=== PATIENT | female | born 1960 | race Caucasian/White ===

== ENCOUNTER 2017-06-26 10:20 | Emergency (ER) | payer OTHER ==
[~2017-06-26] VITALS: Ht 162.6 cm; Wt 136.1 kg
[~2017-06-26 10:20] MED LIST: ALBUTEROL2.5 MG/3 M INH; AMOXICILLIN500 M1 PO; AZITHROMYCIN500 MG PO; BACTRIM DS TAB1 EACH PO; CLINDAMYCIN HC300 MG PO; COL-RITE250 MG PO; COLACE100 MG PO; DIPHENHYDRAMINE25 M1 PO; FENOFIBRATE134 MG PO; FLEXERIL10 MG PO; HYDROCODON-ACE1 EAC8 PO; KEFLEX500 MG PO; LISINOPRIL-HCT1 EACH PO; LORAZEPAM1 MG PO; MELOXICAM15 MG PO; METHOCARBAMOL500 MG PO; NAPROXEN500 MG PO; NORCO 10-325 T1 EACH PO; NORCO 5-325 TA1 EACH PO; NORTRIPTYLINE H75 MG PO; OXYCODONE HCL10 MG PO; OXYCODONE HCL5 MG PO; OXYCONTIN10 MG PO; OXYCONTIN20 MG PO; OXYCONTIN30 MG PO; PERCOCET 5-3251 EACH PO; PREDNISONE20 MG PO; PRILOSEC OTC20 MG PO; PRILOSEC20 MG PO; STOOL SOFTENER; ULTRAM50 MG PO; UNKNOWN CHOLESTEROL; VENTOLIN HFA18 GM IH; VENTOLIN HFA18 GM INH; ZESTRIL10 MG; ZITHROMAX250 MG PO; ZOFRAN ODT8 MG PO; ZOFRAN4 MG PO
[2017-06-26] MEDS ORDERED: METHYLPREDNISOLO4 M1 PO (10:58)
[2017-06-27] MEDS ORDERED: ZOFRAN ODT4 MG PO (01:15)
[2017-06-27] MEDS ORDERED: KEFLEX250 MG PO (01:15)
== END 2017-06-26 11:17 | disposition home or self-care (01) ==
LOC: ED 10:20
DX: G89.29 Other chronic pain (principal); M25.552 Pain in left hip; F32.9 Major depressive disorder, single episode, unspecified; I10 Essential (primary) hypertension; J44.9 Chronic obstructive pulmonary disease, unspecified; F17.200 Nicotine dependence, unspecified, uncomplicated; Z90.710 Acquired absence of both cervix and uterus; Z90.49 Acquired absence of other specified parts of digestive tract; Z88.1 Allergy status to other antibiotic agents; Z88.5 Allergy status to narcotic agent
CPT/HCPCS: 73502; 99283

== ENCOUNTER 2017-06-26 22:18 | Emergency (ER) | payer OTHER ==
[~2017-06-26] VITALS: Ht 162.6 cm; Wt 136.1 kg
[~2017-06-26 22:18] MED LIST changes: +METHYLPREDNISOLO4 M1 PO
[2017-06-27] MEDS ORDERED: ZOFRAN ODT4 MG PO (01:15)
[2017-06-27] MEDS ORDERED: KEFLEX250 MG PO (01:15)
== END 2017-06-27 01:30 | disposition home or self-care (01) ==
LOC: ED 22:18
DX: R51 Headache (principal); R11.2 Nausea with vomiting, unspecified; F32.9 Major depressive disorder, single episode, unspecified; I10 Essential (primary) hypertension; J44.9 Chronic obstructive pulmonary disease, unspecified; F17.200 Nicotine dependence, unspecified, uncomplicated; Z90.710 Acquired absence of both cervix and uterus; Z90.49 Acquired absence of other specified parts of digestive tract; Z88.1 Allergy status to other antibiotic agents; Z88.5 Allergy status to narcotic agent; Z79.899 Other long term (current) drug therapy
CPT/HCPCS: 80053; 81001; 85025; 96361; 96374; 96375; 99283; J1200; J1885; J2765; J7030

== ENCOUNTER 2017-07-23 12:50 | Emergency (ER) | payer OTHER ==
[~2017-07-23] VITALS: Ht 162.6 cm; Wt 136.1 kg
[~2017-07-23 12:50] MED LIST changes: +KEFLEX250 MG PO; +ZOFRAN ODT4 MG PO
[2017-07-23] MEDS ORDERED: PRILOSEC OTC20 MG PO (13:01)
[2017-07-23] MEDS ORDERED: LASIX20 MG PO (13:08)
[2017-07-23] MEDS ORDERED: METHYLPREDNISOLO4 M1 PO (13:53)
[2017-07-23] MEDS ORDERED: KETOROLAC TROME10 MG PO (13:53)
[2017-07-23] MEDS ORDERED: CYCLOBENZAPRINE5 MG PO (13:55)
== END 2017-07-23 14:22 | disposition home or self-care (01) ==
LOC: ED 12:50
DX: G89.29 Other chronic pain (principal); M54.41 Lumbago with sciatica, right side; F32.9 Major depressive disorder, single episode, unspecified; I10 Essential (primary) hypertension; J44.9 Chronic obstructive pulmonary disease, unspecified; F17.200 Nicotine dependence, unspecified, uncomplicated; Z90.49 Acquired absence of other specified parts of digestive tract; Z90.710 Acquired absence of both cervix and uterus; Z88.1 Allergy status to other antibiotic agents; Z88.5 Allergy status to narcotic agent; Z88.8 Allergy status to other drugs, medicaments and biological substances
CPT/HCPCS: 96374; 96375; 99283; J1100; J1885; J2060

== ENCOUNTER 2017-11-05 18:13 | Inpatient (IN) | payer OTHER ==
[~2017-11-05] VITALS: Ht 162.6 cm; Wt 139.8 kg
--- OUTSIDE RECORDS SUMMARY | ~2017-11-05 | XMS | Clinical Summary ---
Demographics + + + | Address | [address] | | | [place] [address] | + + + | Home Phone [...] Providers + +------+ + | Care Hog Slaughterer Name | Role | Phone | + +------+ + | Travis Mcginnis MD | PP | Unavailable | + +------+ + Source Comments L[facility] is fully live on both [facility] and [facility] Allergies + + + + + + [...] | | + + + +---------+------+------+-------+ | [place]-3 Fatty | Take by mouth. | | [...]
[~2017-11-05 18:13] MED LIST changes: +CYCLOBENZAPRINE5 MG PO; +KETOROLAC TROME10 MG PO; +LASIX20 MG PO
[2017-11-05] MEDS ORDERED: LOSARTAN POTASS50 MG PO (18:29)
[2017-11-05] MEDS ORDERED: PERCOCET 5-3251 EACH PO (18:29)
--- OUTSIDE RECORDS SUMMARY | 2017-11-05 19:16 | XMS | Clinical Summary ---
Demographics + + + | Address | [address] | | | [place] [address] | + + + | Home Phone | | + + + | Preferred Language | Unknown | + + + | Marital Status | Single | + + + | Protestant Affiliation | PRE | + + + | Race | White | + + + | Ethnic Group | Not or | + + + Author + + + | Author | NON REVENUE LOCATIONS | + + + | Organization | NON REVENUE LOCATIONS | + + + | Address | Unknown | + + + | Phone | Unavailable | + + + Support +------+ + + + | Name | Relationship | Address | Phone | +------+ + + + ECON | [place] | | +------+ + + + Care Team Providers + +------+ + | Care Advertising Supervisor Name | Role | Phone | + +------+ + | Travis Mcginnis MD | PP | Unavailable | + +------+ + Source Comments LION is fully live on both [facility] and [facility] & [facility] Allergies + + + + + + | Active Allergy | Reactions | Severity | Noted | Comments | | | | | Date | | + + + + + + | Adhesive Tape | Rash | | 08/16/20 | | | | | | 08 | | + + + + + + | Atorvastatin Calcium | | | 08/17/20 | | | | | | 03 | | + + + + + + | Sulfa (Sulfonamide | | | 07/18/20 | Gives intestinal | | Antibiotics) | | | 06 | flu | + + + + + + Current Medications + + + +---------+------+------+-------+ | Prescription | Sig. | Disp. | Refills | Star | End | Statu | | | | | | t | Date | s | | | | | | Date | | | + + + +---------+------+------+-------+ | ALBUTEROL SULFATE | inhale the contents | | | | | Activ | | 200 MCG CAPS WITH | of one capsule by | | | | | e | | INHALATION DEVICE | inhalation route | | | | | | | | every 4 hours as | | | | | | | | needed | | | | | | + + + +---------+------+------+-------+ | omeprazole | Take 40 mg by mouth | | | | | Activ | | (PRILOSEC) 40 mg | once daily. | | | | | e | | Oral Capsule, | | | | | | | | Delayed | | | | | | | | Release(E.C.) | | | | | | | + + + +---------+------+------+-------+ | MULTIVITS | Take by mouth. | | | | | Activ | | W-FE,OTHER MIN | | | | | | e | | (CENTRUM ORAL) | | | | | | | + + + +---------+------+------+-------+ | CALCIUM | Take by mouth. | | | | | Activ | | CARBONATE/VITAMIN D3 | | | | | | e | | (CALCIUM 600 + D | | | | | | | | ORAL) | | | | | | | + + + +---------+------+------+-------+ | [place]-3 Fatty | Take by mouth. | | | | | Activ | | Acids-Vitamin E | | | | | | e | | (FISH OIL) 1,000 mg | | | | | | | | Oral Capsule | | | | | | | + + + +---------+------+------+-------+ | | Take 1 Tab by mouth | | | | | Activ | | hydrocodone-acetamin | every four hours as | | | | | e | | ophen 7.5-325 mg | needed. Not to | | | | | | | Oral Tablet | exceed 12 tablets | | | | | | | | per any 24 hour | | | | | | | | period. (Not to | | | | | | | | exceed 4000 mg of | | | | | | | | acetaminophen from | | | | | | | | all products per 24 | | | | | | | | hour period.) | | | | | | + + + +---------+------+------+-------+ | docusate sodium | Take 100 mg by mouth | | | 10/0 | | Activ | | (DOC-Q-LACE) 100 mg | as needed. | | | 7/20 | | e | | Oral Capsule | | | | 10 | | | + + + +---------+------+------+-------+ | acetaminophen 500 | Take 500 mg by mouth | | | | | Activ | | mg Oral Tablet | every six hours as | | | | | e | | | needed. | | | | | | + + + +---------+------+------+-------+ | CYCLOBENZAPRINE | Take by mouth. | | | | | Activ | | HCL (CYCLOBENZAPRINE | | | | | | e | | ORAL) | | | | | | | + + + +---------+------+------+-------+ | aspirin EC 325 mg | Take 1 Tab by mouth | 90 Tab | 0 | 01/2 | | Activ | | Oral Tablet, Delayed | two times daily. | | | 10/19 | | e | | Release (E.C.) | Take for 6 weeks as | | | 11 | | | | | prevention of leg | | | | | | | | blood clots. | | | | | | + + + +---------+------+------+-------+ | rifamPIN 300 mg | Take 1 Cap by mouth | 60 Cap | 5 | 02/1 | | Activ | | Oral Capsule | two times daily. | | | 01/17 | | e | | | | | | 11 | | | + + + +---------+------+------+-------+ | ciprofloxacin | Take 1 Tab by mouth | 60 Tab | 5 | 11/01 | | Activ | | (CIPRO) 750 mg Oral | every twelve hours. | | | 01/17 | | e | | Tablet | Take until gone. 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) | | + + + | Leukocytosis | 10/14/2010 | + + + | Hyperglycemia | 10/14/2010 | + + + | Bettye arana | 10/14/2010 | + + + | Status post hip replacement | 12/16/2008 | + + + + + | Overview: ICD10 | + + + + + | Sleep apnea | 08/16/2008 | + + + | Asthma | 08/16/2008 | + + + | Osteoarthritis of hip | 02/11/2006 | + + + | Hip pain | 11/15/2005 | + + + | Back pain | 11/15/2005 | + + + | HTN (hypertension) | | + + + + + | Overview: ICD10 | + + Immunizations + + + + | Name | Dates Previously Given | Next Due | + + + + | Pneumococcal 23 | 10/15/2010 (Deferred: Patient Refused - | | | | Patient refused) | | + + + + Family History + + +------+ + | Medical History | Relation | Name | Comments | + + +------+ + | Cancer | Father | | unknown type | + + +------+ + | Cancer | Maternal | | unknown type | | | Aunt | | | + + +------+ + | Cancer | Maternal | | unknown type | | | Uncle | | | + + +------+ + | Cancer | Mother | | unknown type | + + +------+ + + +------+--------+ + | Relation | Name | Status | Comments | + +------+--------+ + | Father | | | | + +------+--------+ + | Maternal Aunt | | | | + +------+--------+ + | Maternal Uncle | | | | + +------+--------+ + | Mother | | | | + +------+--------+ + Social History + + + +--------+------+ | Tobacco Use | Types | Packs/Day | Years | Date | | | | | Used | | + + + +--------+------+ | Current Every Day | Cigarettes | 1 | 41 | | | Smoker | | | | | + + + +--------+------+ + +---+---+---+ | Smokeless Tobacco: | | | | | Never Used | | | | + +---+---+---+ + + +---------+ + | Alcohol Use | Drinks/We | oz/Week | Comments | | | ek | | | + + +---------+ + | Yes | | | rare social | + + +---------+ + + + + | Sex Assigned at | Date Recorded | | | | + + + | Not on file | | + + + Last Filed Vital Signs + + + + | Vital Sign | Reading | Time Taken | + + + + | Blood Pressure | 135/85 | 10/23/2010 8:05 AM PST | + + + + | Pulse | 89 | 10/23/2010 8:05 AM PST | + + + + | Temperature | 37 C (98.6 F) | 10/23/2010 8:05 AM PST | + + + + | Respiratory Rate | 20 | 10/23/2010 8:05 AM PST | + + + + | Oxygen Saturation | 97% | 10/23/2010 8:05 AM PST | + + + + | Inhaled Oxygen | - | - | | Concentration | | | + + + + | Weight | 118.8 kg (262 lb) | 05/10/2011 12:06 PM PDT | + + + + | Height | 162.6 cm (5' 4") | 05/10/2011 12:06 PM PDT | + + + + | Body Mass Index | 44.97 | 05/10/2011 12:06 PM PDT | + + + + Plan of Treatment + + + + + | Health Maintenance | Due Date | Last Done | Comments | + + + + + | INFLUENZA VACCINE | | | | | (FLU SHOT) | 7 | | | + + + + + Results Not on filefrom Last 3 Months
--- OUTSIDE RECORDS SUMMARY | 2017-11-05 19:16 | XMS | Clinical Summary ---
Demographics + + + | Address | [address] | | | [place] [address] | + + + | Home Phone | | + + + | Preferred Language | Unknown | + + + | Marital Status | Single | + + + | Zoroastrianism Affiliation | PRE | + + + [...] Team Providers + +------+ + | Care Tool And Die Engineer Name | Role | Phone | + +------+ + | Travis Mcginnis MD | PP | Unavailable | + +------+ + Source Comments LION is fully live on both [facility] and [facility] Allergies + + + + + + [...] | | + + + +---------+------+------+-------+ | [place]-3 Fatty | Take by mouth. | | [...]
--- NOTE | 2017-11-06 14:30 | EKG ---
[facility] [address] [facility] [place] [address] Signed Sinus tachycardia with frequent premature ventricular complexes Septal infarct (cited on or before 26-NOV-2016) Abnormal ECG When compared with ECG of 26-NOV-2016 17:44, premature ventricular complexes are now present Confirmed by NILES KNOX MD ([id number]) on 11/06/2017 2:30:32 PM Electronically Signed By: NILES KNOX MD 11/06/17 1430 PATIENT NAME: CHASTITY BONILLA Electrocardiogram DATE OF : 58 PHYSICIAN: NILES KNOX MD REPORT #: [id number] REPORT IS CONFIDENTIAL AND NOT TO BE RELEASED WITHOUT AUTHORIZATION
[2017-11-07] MEDS ORDERED: GABAPENTIN100 MG PO (14:04)
[2017-11-08] MEDS ORDERED: LABETALOL HCL100 MG PO (09:07)
[2017-11-08] MEDS ORDERED: AUGMENTIN 875-1 EACH PO (09:07)
[2017-11-08] MEDS ORDERED: NICORETTE4 M2 BUCCAL (09:07)
[2017-11-08] MEDS ORDERED: LOSARTAN POTAS100 MG PO (09:08)
[2017-11-08] MEDS ORDERED: NYSTOP60 GM TOP (09:35)
== END 2017-11-08 13:13 | disposition home or self-care (01) | DRG 872 ==
LOC: ED 18:13 → CCU 21:17 → MS 11-07 13:17
PROVIDERS: ADMIT Internal Medicine
DX: A41.01 Sepsis due to Methicillin susceptible Staphylococcus aureus (principal); L03.311 Cellulitis of abdominal wall; E87.1 Hypo-osmolality and hyponatremia; F11.20 Opioid dependence, uncomplicated; N10 Acute pyelonephritis; B37.2 Candidiasis of skin and nail; E66.01 Morbid (severe) obesity due to excess calories; G47.33 Obstructive sleep apnea (adult) (pediatric); K21.9 Gastro-esophageal reflux disease without esophagitis; I10 Essential (primary) hypertension; G89.4 Chronic pain syndrome; E11.9 Type 2 diabetes mellitus without complications; B96.20 Unspecified Escherichia coli [E. coli] as the cause of diseases classified elsewhere; F17.200 Nicotine dependence, unspecified, uncomplicated; J44.9 Chronic obstructive pulmonary disease, unspecified; F32.9 Major depressive disorder, single episode, unspecified; E65 Localized adiposity; E86.1 Hypovolemia
CPT/HCPCS: 36415; 51702; 71045; 74177; 80053; 80069; 80202; 81001; 83605; 83735; 85025; 87040; 87077; 87088; 87186; 93005; 93010; 94640; 94660; 96361; 96365; 96375; 97116; 97162; 99285; 99407; J0692; J0696; J1650; J1885; J2405; J3370; J3475; J3480; J7030; J7040; J7060; J7120; Q9967

== ENCOUNTER 2017-11-09 13:58 | Emergency (ER) | payer OTHER ==
[~2017-11-09] VITALS: Ht 162.6 cm; Wt 139.8 kg
[~2017-11-09 13:58] MED LIST changes: +AUGMENTIN 875-1 EACH PO; +GABAPENTIN100 MG PO; +LABETALOL HCL100 MG PO; +LOSARTAN POTAS100 MG PO; +LOSARTAN POTASS50 MG PO; +NICORETTE4 M2 BUCCAL; +NYSTOP60 GM TOP
--- OUTSIDE RECORDS SUMMARY | 2017-11-09 14:04 | XMS | Clinical Summary ---
Demographics + + + | Address | [address] | | | [place] [address] | + + + | Home Phone | | + + + | Preferred Language | Unknown | + + + | Marital Status | Single | + + + | Presybeterian Affiliation | PRE | + + + [...] Team Providers + +------+ + | Care Cable Stretcher And Tester Name | Role | Phone | + +------+ + | Travis Mcginnis MD | PP | Unavailable | + +------+ + Source Comments LION is fully live on both [facility] and [facility] Allergies + + + + + [...] | | + + + +---------+------+------+-------+ | [place]-3 Fatty | Take by mouth. | | [...]
--- OUTSIDE RECORDS SUMMARY | 2017-11-09 14:04 | XMS | Clinical Summary ---
Demographics + + + | Address | [address] | | | [place] [address] | + + + | Home Phone | | + + + | Preferred Language | Unknown | + + + | Marital Status | Single | + + + | Hinduism Affiliation | PRE | + + + [...] Team Providers + +------+ + | Care Manager Stars Name | Role | Phone | + +------+ + | Travis Mcginnis MD | PP | Unavailable | + +------+ + Source Comments [facility] Allergies + + + + + + [...] | | + + + +---------+------+------+-------+ | [place]-3 Fatty | Take by mouth. | | [...]
--- NOTE | 2017-11-09 17:59 | EKG ---
[facility] [address] [facility] [place] [address] Signed Normal sinus rhythm Cannot rule out Anterior infarct (cited on or before 26-NOV-2016) Abnormal ECG When compared with ECG of 05-NOV-2017 18:42, premature ventricular complexes are no longer present Vent. rate has decreased BY 45 BPM Confirmed by NILES KNOX MD ([id number]) on 11/09/2017 5:59:33 PM Electronically Signed By: NILES KNOX MD 11/09/17 1759 PATIENT NAME: CHASTITY BONILLA Electrocardiogram DATE OF : 58 PHYSICIAN: NILES KNOX MD REPORT #: [id number] REPORT IS CONFIDENTIAL AND NOT TO BE RELEASED WITHOUT AUTHORIZATION
== END 2017-11-09 17:35 | disposition home or self-care (01) ==
LOC: ED 13:58
DX: R33.9 Retention of urine, unspecified (principal); R10.31 Right lower quadrant pain; R10.32 Left lower quadrant pain; E66.01 Morbid (severe) obesity due to excess calories; I10 Essential (primary) hypertension; J44.9 Chronic obstructive pulmonary disease, unspecified; F32.9 Major depressive disorder, single episode, unspecified; F17.200 Nicotine dependence, unspecified, uncomplicated; Z90.710 Acquired absence of both cervix and uterus; Z90.49 Acquired absence of other specified parts of digestive tract; Z88.1 Allergy status to other antibiotic agents; Z88.5 Allergy status to narcotic agent; Z79.899 Other long term (current) drug therapy
CPT/HCPCS: 71045; 74177; 80053; 81001; 83605; 83880; 85025; 93005; 93010; 94640; 99284; Q9967

== ENCOUNTER 2017-11-18 10:57 | Emergency (ER) | payer OTHER ==
[~2017-11-18] VITALS: Ht 162.6 cm; Wt 139.8 kg
--- OUTSIDE RECORDS SUMMARY | ~2017-11-18 | XMS | Clinical Summary ---
Demographics + + + | Address | [address] | | | [place] [address] | + + + | Home Phone [...] + +------+ + | Care Quality Assurance Coach Name | Role | Phone | + +------+ + | Travis Mcginnis MD | PP | Unavailable | + +------+ + Source Comments LION is fully live on both [facility] and [facility] Allergies + + + + + [...] | | + + + +---------+------+------+-------+ | [place]-3 Fatty | Take by mouth. | | [...]
--- OUTSIDE RECORDS SUMMARY | ~2017-11-18 | XMS | Clinical Summary ---
Demographics + + + | Address | [address] | | | [place] [address] | + + + | Home Phone [...] Team Providers + +------+ + | Care Aeronautics Teacher Name | Role | Phone | + +------+ + | Travis Mcginnis MD | PP | Unavailable | + +------+ + Source Comments [facility] is fully [facility] both [facility] and [facility] Allergies + + + + [...] | | + + + +---------+------+------+-------+ | [place]-3 Fatty | Take by mouth. | | [...]
== END 2017-11-18 19:15 | disposition home or self-care (01) ==
LOC: ED 10:57
DX: R10.9 Unspecified abdominal pain (principal); R11.2 Nausea with vomiting, unspecified; E66.9 Obesity, unspecified; I10 Essential (primary) hypertension; Z88.1 Allergy status to other antibiotic agents; Z88.8 Allergy status to other drugs, medicaments and biological substances; Z88.5 Allergy status to narcotic agent; Z79.899 Other long term (current) drug therapy
CPT/HCPCS: 74177; 80053; 81001; 83690; 85025; 96374; 96375; 96376; 99284; J1170; J2405; Q9967

== ENCOUNTER 2017-12-24 19:01 | Emergency (ER) | payer OTHER ==
[~2017-12-24] VITALS: Ht 162.6 cm; Wt 139.8 kg
--- OUTSIDE RECORDS SUMMARY | ~2017-12-24 | XMS | Clinical Summary ---
Demographics + + + | Address | [address] [facility] | | | [address] | | | [place] [address] | + + + | Home Phone | | + + + | Preferred Language | Unknown | + + + | Marital Status | | + + + | Quaker Affiliation | [place] | + + + | Race [...] Team Providers + +------+ + | Care Patrol Lady Name | Role | Phone | + [...]
--- OUTSIDE RECORDS SUMMARY | ~2017-12-24 | XMS | Clinical Summary ---
Demographics + + + | Address | [address] | | | [place] [address] | + + + | Home Phone [...] Providers + +------+ + | Care In Flight Refueling Manager Name | Role | Phone | + +------+ + | Travis Mcginnis MD | PP | Unavailable | + +------+ + Source Comments LION is fully live on both [facility] and [facility] Allergies + + + + [...] | | + + + +---------+------+------+-------+ | [place]-3 Fatty | Take by mouth. | | [...]
--- OUTSIDE RECORDS SUMMARY | ~2017-12-24 | XMS | Clinical Summary ---
Demographics + + + | Address | [address] | | | [address] | | | [place] [address] | + + + | Home Phone | | + + + | Preferred Language | Unknown | + + + | Marital Status | | + + + | Mosque Affiliation | [place] | + + + | Race [...] Team Providers + +------+ + | Care Turbo Electric Operator Name | Role | Phone | [...]
--- OUTSIDE RECORDS SUMMARY | ~2017-12-24 | XMS | Clinical Summary ---
Demographics + + + | Address | [address] | | | [place] [address] | + + + | Home Phone [...] Team Providers + +------+ + | Care Reaming Machine Operator Name | Role | Phone [...] | | + + + +---------+------+------+-------+ | [place]-3 Fatty | Take by mouth. | | [...]
[2017-12-25] MEDS ORDERED: ZOFRAN ODT4 MG PO (14:52)
[2017-12-25] MEDS ORDERED: PHENERGAN50 MG PR (17:06)
== END 2017-12-24 21:36 | disposition home or self-care (01) ==
LOC: ED 19:01
DX: K52.9 Noninfective gastroenteritis and colitis, unspecified (principal); F32.9 Major depressive disorder, single episode, unspecified; I10 Essential (primary) hypertension; J44.9 Chronic obstructive pulmonary disease, unspecified; Z88.1 Allergy status to other antibiotic agents; Z88.8 Allergy status to other drugs, medicaments and biological substances; Z88.5 Allergy status to narcotic agent; Z79.899 Other long term (current) drug therapy
CPT/HCPCS: 80053; 85025; 96374; 96375; 99283; J2405; J2550; J7030

== ENCOUNTER 2017-12-25 14:40 | Emergency (ER) | payer OTHER ==
[~2017-12-25] VITALS: Ht 162.6 cm; Wt 139.8 kg
--- OUTSIDE RECORDS SUMMARY | ~2017-12-25 | XMS | Clinical Summary ---
Demographics + + + | Address | [address] [address] | | | [address] | | | [place] [address] | + + + | Home Phone | | + + + | Preferred Language | Unknown | + + + | Marital Status | | + + + | Judaism Affiliation | [place] | + + + | Race | White | + + + | Ethnic Group | Not or | + + + Author + + + | Author | [facility] | + + + | Organization | [facility] | + + + | Address | Unknown | + + + | Phone | Unavailable | + + + Care Team Providers + +------+ + | Care Picu Nurse Name | Role | Phone | + +------+ + PP | Unavailable | + +------+ + Allergies Not on File Current Medications Not on file Active Problems Not on file Social History + +-------+ +--------+------+ | Tobacco [...] on file | | + + + Plan of Treatment + + + + + | Health Maintenance | Due Date | Last Done | Comments | + + + + + | Hep C Ab Screening | | | | | | 9 | | | + + + + + | HIV Screening | | | | | | 4 | | | + + + + + | Tetanus | | | | | | 8 | | | + + + + + | Cervical Cancer | | | | | Screening | 0 | | | + + + + + | Breast Cancer | | | | | Screening | 9 | | | + + + + + | Colon Cancer | | | | | Screening | 9 | | | + + + + + | IMM Influenza (#1) | | | | | | 7 | | | + + + + + Results Not on filefrom Last 3 Months"
--- OUTSIDE RECORDS SUMMARY | ~2017-12-25 | XMS | Clinical Summary ---
Demographics + + + | Address | [address] | | | [place] [address] | + + + | Home Phone [...] Team Providers + +------+ + | Care Scalder Name | Role | Phone | + +------+ + | Travis Mcginnis MD | PP | Unavailable | + +------+ + Source Comments LION is fully live on both [facility] and [facility] Allergies + + + + + [...] | | + + + +---------+------+------+-------+ | [place]-3 Fatty | Take by mouth. | | [...]
--- OUTSIDE RECORDS SUMMARY | ~2017-12-25 | XMS | Clinical Summary ---
Demographics + + + | Address | [address] | | | [place] [address] | + + + | Home Phone [...] Providers + +------+ + | Care Chief Fishery Division Name | Role | Phone | + +------+ + | Travis Mcgninis MD | PP | Unavailable | + +------+ + Source Comments LION is fully live on both [facility] and [facility] Allergies + + + + [...] | | + + + +---------+------+------+-------+ | [place]-3 Fatty | Take by mouth. | | [...]
--- OUTSIDE RECORDS SUMMARY | ~2017-12-25 | XMS | Clinical Summary ---
Demographics + + + | Address | [address] [facility] | | | [address] | | | [place] [address] | + + + | Home Phone | | + + + | Preferred Language | Unknown | + + + | Marital Status | | + + + | Zoroastrianism Affiliation | [place] | + + + | Race [...] Team Providers + +------+ + | Care Housekeeping Department Worker Name | Role | Phone | [...]
[2017-12-25] MEDS ORDERED: ZOFRAN ODT4 MG PO (14:52)
[2017-12-25] MEDS ORDERED: PHENERGAN50 MG PR (17:06)
== END 2017-12-25 17:31 | disposition home or self-care (01) ==
LOC: ED 14:40
PROC: 0T9B70Z Drainage of Bladder with Drainage Device, Via Natural or Artificial Opening (ICD-10-PCS; principal; 2017-12-25)
DX: K56.7 Ileus, unspecified (principal); F32.9 Major depressive disorder, single episode, unspecified; I10 Essential (primary) hypertension; J44.9 Chronic obstructive pulmonary disease, unspecified; Z87.891 Personal history of nicotine dependence; Z88.1 Allergy status to other antibiotic agents; Z88.5 Allergy status to narcotic agent; Z88.8 Allergy status to other drugs, medicaments and biological substances; Z79.899 Other long term (current) drug therapy
CPT/HCPCS: 51701; 74177; 80053; 81001; 82150; 83690; 85025; 87077; 87088; 87186; 96374; 96375; 99284; J1885; J2550; Q9967

== ENCOUNTER 2018-01-15 05:30 | Emergency (ER) | payer OTHER ==
[~2018-01-15] VITALS: Ht 162.6 cm; Wt 139.8 kg
--- OUTSIDE RECORDS SUMMARY | ~2018-01-15 | XMS | Clinical Summary ---
Demographics + + + | Address | [address] | | | [place] [address] | + + + | Home Phone [...] | + + + + + | ZAFAR KRISHNA | ECON | [place] | | + + + + + Care Team Providers + +------+ + | Care Engraver Jewelry Name | Role | Phone | + +------+ + | Tarvis Mcginnis MD | PP | Unavailable | + +------+ + Source Comments [facility] and [facility] Allergies + + + + + [...] | | + + + +---------+------+------+-------+ | [place]-3 Fatty | Take by mouth. | | [...] | two times daily. | | | 20 | | e | | Release (E.C.) [...] | | | | (FLU SHOT) | 8 | | | + + + + + Results Not on filefrom Last 3 Months
--- OUTSIDE RECORDS SUMMARY | ~2018-01-15 | XMS | Encounter Summary ---
Demographics + + + | Address | [address] | | | [place] [address] | + + + | Home Phone | | + + + | Preferred Language | Unknown | + + + | Marital Status | Single | + + + | Pentecostal Affiliation | Unknown | + + + | Race | Unknown | + + + | Ethnic Group | Unknown | + + + Author + + + | Author | [facility] | + + + | Organization | [facility] | + + + | Address | Unknown | + + + | Phone | Unavailable | + + + Support + + +---------+ + | Name | Relationship | Address | Phone | + + +---------+ + | Kristel Teresa | ECON | Unknown | | + + +---------+ + Care Team Providers + +------+ + | Care Tire Specialist Name | Role | Phone | + +------+ + | Jaimie Monreal MD | PCP | | + +------+ + Reason for Visit MRI/CAT Scan (Routine) + +--------+ + + + + | Status | Reason | Specialty | Diagnoses / | Referred By | Referred To | | | | | Procedures | Contact | Contact | + +--------+ + + + + | Pending | | Radiology | Diagnoses | See, | | | Review | | | Pain | Medical | | | | | | Procedures | Record | | | | | | MRI lumbar | | | | | | | spine | | | | | | | without | | | | | | | contrast | | | + +--------+ + + + + Encounter Details +--------+ + + + + | Date | Type | Department | Care Team | Description | +--------+ + + + + | 12/04/ | Hospital | [facility] | See, Medical | Pain | | 2018 | Encounter | [facility] | Record | | | | | RADIOLOGY [address] | | | | | | [address] | | | | | | [place] [address] | | | | | | [phone] | | | +--------+ + + + [...] + + + as of this encounter Medications at Time of Discharge + + +--------+---------+ + + | Medication | Sig. | Disp. | Refills | Start | End Date | | | | | | Date | | + + +--------+---------+ + + | albuterol | Inhale 1 puff every | | | // | | | (VENTOLIN HFA) 108 | 6 hours as needed | | | 12 | | | (90 Base) MCG/ACT | for shortness of | | | | | | inhaler | breath | | | | | + + +--------+---------+ + + | Cyclobenzaprine | Take by mouth as | | | | | | HCl (FLEXERIL PO) | needed. | | | | | + + +--------+---------+ + + | desvenlafaxine | | | | 09/28/20 | | | (PRISTIQ) 50 MG 24 | | | | 17 | | | hr tablet | | | | | | + + +--------+---------+ + + | diazePAM (VALIUM) | Take 1 tablet by | 2 | 0 | 11/25/19 | | | 5 MG tablet | mouth daily as | tablet | | 18 | | | | needed for Anxiety | | | | | | | or Sleep. May take | | | | | | | 1-2 tabs 15-30 | | | | | | | minutes prior MRI | | | | | | | imaging for anxiety. | | | | | + + +--------+---------+ + + | furosemide (LASIX) | take 1 tablet by | | | 08/28/20 | | | 20 MG tablet | mouth once daily | | | 17 | | + + +--------+---------+ + + | gabapentin | Take 100 mg by mouth | | 0 | 09/18/20 | | | (NEURONTIN) 100 MG | 2 (two) times | | | 17 | | | capsule | daily. | | | | | + + +--------+---------+ + + | losartan (COZAAR) | Take 50 mg by mouth | | 1 | 10/03/19 | | | 50 MG tablet | daily. | | | 18 | | + + +--------+---------+ + + | omeprazole | Take 20 mg by mouth. | | | | | | (PRILOSEC) 20 MG | | | | | | | capsule | | | | | | + + +--------+---------+ + + | | Take 1 tablet by | | | 10/03/19 | | | oxyCODONE-acetaminop | mouth. | | | 18 | 8 | | hen (PERCOCET) 5-325 | | | | | | | MG per tablet | | | | | | + + +--------+---------+ + + as of this encounter Plan of Treatment +--------+---------+ + + + | Date | Type | Specialty | Care Team | Description | +--------+---------+ + + + | 01/20/ | Office | Dolorology | Xiang Sepulveda, | | | 2017 | Visit | | DO [address] | | | | | | [place], [place] | | | | | | [address] | | | | | | | | +--------+---------+ + + + as of this encounter Results MRI lumbar spine without contrast (11/27/2017 11:11 PM) + + + | Specimen | Performing Laboratory | + + + | | [facility] [address] [place] [address] | + + + + + | Narrative | + + | This is a non-reportable procedure without a radiologist report and is used for | | image storage only | + + in this encounter Visit Diagnoses + + | Diagnosis | + + | Pain | + + | Generalized pain | + +"
--- OUTSIDE RECORDS SUMMARY | ~2018-01-15 | XMS | Clinical Summary ---
Demographics + + + | Address | [address] | | | [place] [address] | + + + | Home Phone | | + + + | Preferred Language | Unknown | + + + | Marital Status | Single | + + + | Taoism Affiliation | Unknown | + + + | Race | Unknown | + + + | Ethnic Group | Unknown | + + + Author + + + | Author | [facility] | + + + | Organization | [facility] | + + + | Address | Unknown | + + + | Phone | Unavailable | + + + Support + + +---------+ + | Name | Relationship | Address | Phone | + + +---------+ + | Kristel Teresa | ECON | Unknown | | + + +---------+ + Care Team Providers + +------+ + | Care Double Reamer Operator Name | Role | Phone | [...] | | | + + +--------+---------+------+------+-------+ | gabapentin | Take 100 mg by mouth | | 0 | 12/2 | | Activ | | (NEURONTIN) 100 MG | 2 (two) times | | | 0/20 | | e | | capsule | daily. | | | 17 | | | [...] | mouth once daily | | | 920 | | e | | | | [...] | | | + + +--------+---------+------+------+-------+ | diazePAM (VALIUM) | Take 1 tablet by | 2 | 0 | 02/2 | | Activ | | 5 MG tablet | mouth daily as | tablet | | 03/19 | | e | | | needed for Anxiety | | | 18 | | | | | or Sleep. May take | | | | | | | | 1-2 tabs 15-30 | | | | | | | | minutes prior MRI | | | | | | | | imaging for anxiety. | | | | | | + + +--------+---------+------+------+-------+ | Cyclobenzaprine | Take by mouth as | | | | | Activ | | HCl (FLEXERIL PO) | needed. | | | | | e | + + +--------+---------+------+------+-------+ | | Take 1 tablet by | | | 01/0 | 04/1 | Disco | | oxyCODONE-acetaminop | mouth. | | | 01/17 | / | ntinu | | hen (PERCOCET) 5-325 | | | | 18 | 18 | ed | | MG per tablet | | | | | | | [...] + + + | Facet arthropathy, lumbar (HCC) | 10/09/2017 | + + + | Osteoarthritis of lumbar spine | 10/09/2017 | + + + Encounters +--------+ + + + + | Date | Type | Specialty | Care Team | Description | +--------+ + + + + | 01/08/ | Office | | Carmine Frost S, | Radiculopathy of | | 2018 | Visit | | HEMATOLOGY NURSE EDUCATOR | lumbar region | | | | | | (Primary Dx); | | | | | | Difficulty walking; | | | | | | DDD (degenerative | | | | | | disc disease), | | | | | | lumbar; Facet | | | | | | arthropathy, lumbar | | | | | | (HCC); | | | | | | Osteoarthritis of | | | | | | lumbar spine, | | | | | | unspecified spinal | | | | | | osteoarthritis | | | | | | complication status; | | | | | | Decreased range of | | | | | | motion of hip; Hip | | | | | | pain, chronic, left | +--------+ + + + + | 12/27/ | Telephone | | Xiang Sepulveda, | | | 2017 | | | DO | | +--------+ + + + + | 12/25/ | Telephone | | Antonella Sprague, | | | 2017 | | | CIRCUIT DESIGN ENGINEER | | +--------+ + + + + | 12/16/ | Telephone | | Casi Marcus, | | | 2017 | | | CIRCUIT DESIGN ENGINEER | | +--------+ + + + + | 12/09/ | Telephone | | Jailene Orta, | | | 2017 | | | TRANSFORMER STOCK CLERK | | +--------+ + + + + | 12/04/ | Hospital | | See, Medical | Pain | | 2018 | Encounter | | Record | | +--------+ + + + + | 12/04/ | Hospital | | Carmine Frost, | Decreased range of | | 2017 | Encounter | | HEMATOLOGY NURSE EDUCATOR | motion of hip; Hip | | | | | | pain, chronic, left | +--------+ + + + + | 12/04/ | Office | | Carmine Frost, | Radiculopathy of | | 2018 | Visit | | HEMATOLOGY NURSE EDUCATOR | lumbar region | | | | | | (Primary Dx); | | | | | | Osteoarthritis of | | | | | | lumbar spine, | | | | | | unspecified spinal | | | | | | osteoarthritis | | | | | | complication status; | | | | | | Facet arthropathy, | | | | | | lumbar; Difficulty | | | | | | walking; DDD | | | | | | (degenerative disc | | | | | | disease), lumbar; | | | | | | Decreased range of | | | | | | motion of hip; Hip | | | | | | pain, chronic, left | +--------+ + + + + | 12/04/ | Procedure | | | | | 2018 | Pass | | | | +--------+ + + + + | 12/04/ | Ancillary | | See, Medical | Pain | | 2017 | Orders | | Record | | +--------+ + + + + | 11/25/ | Telephone | | Casi Marcus, | | | 2017 | | | MICHAEL | | +--------+ + + + + | 11/25/ | Telephone | | Radha Reynoso CMA | | | 2017 | | | | | +--------+ + + + + | 11/25/ | Telephone | | Jailene Orta, | | | 2017 | | | TRANSFORMER STOCK CLERK | | +--------+ + + + + | 11/25/ | Orders Only | | Carmine Frost, | | | 2017 | | | HEMATOLOGY NURSE EDUCATOR | | +--------+ + + + + | 10/25/ | Telephone | | Jailene Orta, | | | 2017 | | | TRANSFORMER STOCK CLERK | | +--------+ + + + + | 10/23/ | Telephone | | Jailene Orta, | | | 2017 | | | TRANSFORMER STOCK CLERK | | +--------+ + + + + | 10/18/ | Hospital | | See, Medical | Pain | | 2017 | Encounter | | Record | | +--------+ + + + + | 10/18/ | Ancillary | | See, Medical | Pain | | 2018 | Orders | | Record | | +--------+ + + + + from Last 3 Months Social History + +-------+ +--------+------+ | Tobacco [...] Blood Pressure | - | - | + + + + | Pulse | - | - | + + + + | Temperature | - | - | + + + + | Respiratory Rate | - | - | + + + + | Oxygen Saturation | - | - | + + + + | Inhaled Oxygen | - | - | | Concentration | | | + + + + | Weight | 135.2 kg (298 lb) | 01/08/2018 1:04 PM PDT | + + + + | Height | 162.6 cm (5' 4") | 01/08/2018 1:04 PM PDT | + + + + | Body Mass Index | 51.15 | 01/08/2018 1:04 PM PDT | + + + + Plan of Treatment +--------+---------+ + + + | Date | Type | Specialty | Care Team | Description | +--------+---------+ + + + | 01/20/ | Office | | Xiang Sepulveda, | | | 2017 | Visit | | DO [address] | | | | | | [place] | | | | | | [address] | | | | | | | [...] | | | | Screening (Pap) | 0 | | | + + [...] Vaccine: Influenza | | | | | (Season Ended) | 8 | | | + + + + + Results X-ray hips bilateral (12/04/2017 2:31 PM) + + + | Specimen | Performing Laboratory | + + + | | [place] [id number] [facility] [place] [address] | + + + + + | Impressions | + + | 1. Diffuse osteopenia could obscure a nondisplaced fracture. 2. Prior right hip | | arthroplasty with retained orthopedic hardware. No periprosthetic fractures | | 3. Dystrophic calcifications superior and lateral to the right hip. 4. Arthritic | | changes of the left hip with axial narrowing suggesting loss of articular cartilage. No | | evidence of fractures or dislocation of the left hip. | + + + + | Narrative | + + | SHELBY GALDAMEZ XR HIPS BILATERAL 12/04/2017 2:31 PM HISTORY: 57 | | years. Female. Decreased range of motion. Chronic hip pain. TECHNIQUE: XR | | HIPS BILATERAL. Frontal view of the pelvis and hips and frog-leg lateral view of both | | left and right hip.. Total of 3 images presented for interpretation. | | COMPARISON: None at this facility FINDINGS: There is diffuse osteopenia a | | nondisplaced fracture could be obscured. Bony pelvic ring appears intact. There is | | extensive dystrophic calcification at the superior lateral margin of the right hip which | | may be associated with limited range of motion. Patient is had a right hip | | arthroplasty. The hardware is intact without breakage. No periprosthetic fractures. The | | left hip demonstrates severe axial narrowing of the joint space femoral head appears to | | remain rounded and smooth without flattening or fragmentation femoral neck and proximal | | femoral shaft as visualized show no displaced fractures. | + + + + | Procedure Note | + + | Mikey, Rad Results In - 12/04/2017 4:19 PM PST SHELBY ZARATE HIPS BILATERAL12/04/2017 | | 2:31 PMHISTORY:57 years. Female. Decreased range of motion. Chronic hip | | pain.TECHNIQUE:XR HIPS BILATERAL. Frontal view of the pelvis and hips and frog-leg | | lateral view of both left and right hip.. Total of 3 images presented for | | interpretation.COMPARISON:None at this facilityFINDINGS:There is diffuse osteopenia a | | nondisplaced fracture could be obscured. Bony pelvic ring appears intact. There is | | extensive dystrophic calcification at the superior lateral margin of the right hip which | | may be associated with limited range of motion. Patient is had a right hip | | arthroplasty. The hardware is intact without breakage. No periprosthetic fractures. The | | left hip demonstrates severe axial narrowing of the joint space femoral head appears to | | remain rounded and smooth without flattening or fragmentation femoral neck and proximal | | femoral shaft as visualized show no displaced fractures.IMPRESSION:1. Diffuse | | osteopenia could obscure a nondisplaced fracture.2. Prior right hip arthroplasty with | | retained orthopedic hardware. No periprosthetic fractures3. Dystrophic calcifications | | superior and lateral to the right hip.4. Arthritic changes of the left hip with axial | | narrowing suggesting loss of articular cartilage. No evidence of fractures or | | dislocation of the left hip. | | 4:14 PM | |1. Diffuse osteopenia could obscure a nondisplaced fracture. | |2. Prior right hip arthroplasty with retained orthopedic hardware. No periprosthetic fract ures | |3. Dystrophic calcifications superior and lateral to the right hip. | |4. Arthritic changes of the left hip with axial narrowing suggesting loss of articular car tilage. No evidence of fractures or dislocation of the left hip. | | | | | | | | | + + MRI lumbar spine without contrast (11/27/2017 11:11 PM) + + + | Specimen | Performing Laboratory | + + + | | [facility] [address] [place] [address] | + + + + + | Narrative | + + | This is a non-reportable procedure without a radiologist report and is used for | | image storage only | + + from Last 3 Months Insurance + +--------+ +------+-------+ + | Payer | Benefi | Subscriber | Type | Phone | Address | | | t Plan | ID | | | | | | / | | | | | | | Group | | | | | + +--------+ +------+-------+ + | MEDICAID | [place] | xxxxxxxx | | | [address] | | | N | | | | [place], [place] | | | [place] | | | | [address] | | | IN[facility] DIRECTOR | | | | | + +--------+ [...] Self [birth year] Home: | [address] | | | al/Fam | | 1960 | [phone] | [place] | | | gigi | | | [phone] | [phone] | + +--------+ +--------+ + +
--- OUTSIDE RECORDS SUMMARY | ~2018-01-15 | XMS | Encounter Summary ---
Demographics + + + | Address | [address] | | | [place] [address] | + + + | Home Phone | | + + + | Preferred Language | Unknown | + + + | Marital Status | Single | + + + | Yazidi Affiliation | Unknown | + + + | Race | Unknown | + + + | Ethnic Group | Unknown | + + + Author + + + | Author | [facility] | + + + | Organization | [facility] | + + + | Address | Unknown | + + + | Phone | Unavailable | + + + Support + + +---------+ + | Name | Relationship | Address | Phone | + + +---------+ + | Kristel Teresa | ECON | Unknown | | + + +---------+ + Care Team Providers + +------+ + | Care Territory Representative Name | Role | Phone | + +------+ + PCP | Unavailable | + +------+ + Encounter Details +--------+ + + + + | Date | Type | Department | Care Team | Description | +--------+ + + + + | 10/23/ | Telephone | [facility] | Jailene Orta, | | | 2017 | | [facility] | DOG SITTER | | | | | [address] | | | | | | [place] | | | | | | [address] | | | | | | [phone] | | | +--------+ + + + [...] [place] | | | | | | [address] | | | | | | | | +--------+---------+ + + + as of this encounter Visit Diagnoses Not on filein this encounter"
--- OUTSIDE RECORDS SUMMARY | ~2018-01-15 | XMS | Encounter Summary ---
Demographics + + + | Address | [address] | | | [place] [address] | + + + | Home Phone [...] + + + | Author | [facility] | + + + | Organization | [email or web address] | + + + | Address | Unknown | + + + | Phone | Unavailable | + + + Support + + +---------+ + | Name | Relationship | Address | Phone | + + +---------+ + | Kristel Teresa | ECON | Unknown | | + + +---------+ + Care Team Providers + +------+ + | Care Senior Care Provider Name | Role | Phone | + +------+ + PCP | Unavailable | + +------+ + Encounter Details +--------+ + + + + | Date | Type | Department | Care Team | Description | +--------+ + + + + | 10/25/ | Telephone | dle | Jailene Orta, | | | 2017 | | [facility] | SPLIT LEATHER MOSSER | | | | | [address] | | | | | | [place] | | | | | | [address] | | | | | | [phone] | | | +--------+ + + + [...] [place] | | | | | | [address] | | | | | | | | +--------+---------+ + + + as of this encounter Visit Diagnoses Not on filein this encounter"
--- OUTSIDE RECORDS SUMMARY | ~2018-01-15 | XMS | Clinical Summary ---
Demographics + + + | Address | [address] | | | [place] [address] | + + + | Home Phone [...] Team Providers + +------+ + | Care Coffer[place] Construction Supervisor Name | Role | Phone | + +------+ + | Travis Mcginnis MD | PP | Unavailable | + +------+ + Source Comments LION is fully live on both [facility] and [facility] Allergies + + + + + [...] | | + + + +---------+------+------+-------+ | [place]-3 Fatty | Take by mouth. | | [...]
--- OUTSIDE RECORDS SUMMARY | ~2018-01-15 | XMS | Encounter Summary ---
Demographics + + + | Address | [address] | | | [place] [address] | + + + | Home Phone | | + + + | Preferred Language | Unknown | + + + | Marital Status | Single | + + + | Sikhism Affiliation | Unknown | + + + | Race | Unknown | + + + | Ethnic Group | Unknown | + + + Author + + + | Author | [facility] | + + + | Organization | [facility] | + + + | Address | Unknown | + + + | Phone | Unavailable | + + + Support + + +---------+ + | Name | Relationship | Address | Phone | + + +---------+ + | Kristel Teresa | ECON | Unknown | | + + +---------+ + Care Team Providers + +------+ + | Care Fusion Analyst Name | Role | Phone | + +------+ + PCP | Unavailable | + +------+ + Encounter Details +--------+ + + + + | Date | Type | Department | Care Team | Description | +--------+ + + + + | 11/25/ | Orders Only | [facility] PH[facility] | Carmine Frost, | | | 2017 | | [facility] | CAR CHECKER [address] | | | | | [address] [place], | | | | | [place] [address] | [place] [address] | | | | | [phone] | [phone] | | | | | | | [...] 2017 | Visit | | DO [address] | | | | | | [place] | | | | | | [address] | | | | | | | | +--------+---------+ + + + as of this encounter Visit Diagnoses Not on filein this encounter"
--- OUTSIDE RECORDS SUMMARY | ~2018-01-15 | XMS | Encounter Summary ---
Demographics + + + | Address | [address] | | | [place] [address] | + + + | Home Phone [...] + + + | Author | [facility] | + + + | Organization | [facility] | + + + | Address | Unknown | + + + | Phone | Unavailable | + + + Support + + +---------+ + | Name | Relationship | Address | Phone | + + +---------+ + | Kristel Teresa | ECON | Unknown | | + + +---------+ + Care Team Providers + +------+ + | Care Kiln Packer Name | Role | Phone | + +------+ + | Jaimie Monreal MD | PCP | | + +------+ + Encounter Details +--------+ + + + + | Date | Type | Department | Care Team | Description | +--------+ + + + + | 12/09/ | Telephone | Nancy | Jailene Orta, | | | 2018 | | [facility] | MEDICAL CHEMIST | | | | | [address] | | | | | | [place] | | | | | | [address] | | | | | | [phone] | | | +--------+ + + + [...] [place] | | | | | | [address] | | | | | | | | +--------+---------+ + + + as of this encounter Visit Diagnoses + + | Diagnosis | + + | Osteoarthritis of lumbar spine, unspecified spinal osteoarthritis complication status - | | Primary | + + | Facet arthropathy, lumbar (HCC) | + + | Lumbosacral spondylosis without myelopathy | + +"
--- OUTSIDE RECORDS SUMMARY | ~2018-01-15 | XMS | Encounter Summary ---
Demographics + + + | Address | [address] | | | [place] [address] | + + + | Home Phone [...] + + + | Author | [facility] | + + + | Organization | [facility] | + + + | Address | Unknown | + + + | Phone | Unavailable | + + + Support + + +---------+ + | Name | Relationship | Address | Phone | + + +---------+ + | Kristel Teresa | ECON | Unknown | | + + +---------+ + Care Team Providers + +------+ + | Care Legal Researcher Name | Role | Phone | [...] + + | 12/04/ | Hospital | [facility] PHYSICIAN | See, Medical | Pain | | 2018 | Encounter | [facility] | Record | | | | | RADIOLOGY [address] | | | | | | [address] | | | | | | [place] [address] | | | | | | [phone] | | | +--------+ + + + [...] | | | | | [place], [place] | | | | | | [address] | | | | | | | | +--------+---------+ + + + as of this encounter Results MRI lumbar spine without contrast (11/27/2017 11:11 PM) + + + | Specimen | Performing Laboratory | + + + | | [facility] [address] [place] [address] | + + + + + | Narrative | + + | This is a non-reportable procedure without a radiologist report and is used for | | image storage only | + + in this encounter Visit Diagnoses + + | Diagnosis | + + | Pain | + + | Generalized pain | + +"
--- OUTSIDE RECORDS SUMMARY | ~2018-01-15 | XMS | Clinical Summary ---
Demographics + + + | Address | [address] | | | [address] | | | [place] [address] | + + + | Home Phone | | + + + | Preferred Language | Unknown | + + + | Marital Status | | + + + | Zoroastrianism Affiliation | [id number] | + + + | Race | Unknown | + + + | Ethnic Group | Unknown | + + + Author + + + | Author | [facility] | | | and [place] | + + + | Organization | [facility] | | | and [place] | + + + | Address | Unknown | + + + | Phone | Unavailable | + + + Support + + + + + | Name | Relationship | Address | Phone | + + + + + | Kristel Teresa | ECON | [address] | | | (Caregiver) | | [place] | | | | | [address] | | + + + + + | Casandra Smith | ECON | [address] | | | | | [place] | | + + + + + Care Team Providers + +------+ + | Care Supervisor Fish Hatchery Name | Role | Phone | + [...] + + + Current Medications + + +-------+---------+------+------+-------+ | Prescription | Sig. | Disp. | Refills | Star | End | Statu | | | | | | t | Date | s | | | | | | Date | | | + + +-------+---------+------+------+-------+ | omeprazole | Take 20 mg by mouth | | | 09/1 | | Activ | | (PRILOSEC) 20 mg | Daily. | | | 4/20 | | e | | capsule | | | | 12 | | | + + +-------+---------+------+------+-------+ | cyclobenzaprine | Take 10 mg by mouth | | | 09/1 | | Activ | | (FLEXERIL) 10 mg | Twice daily as | | | 4/20 | | e | | tablet | needed. | | | 12 | | | + + +-------+---------+------+------+-------+ | docusate sodium | Take 100 mg by mouth | | | 09/1 | | Activ | | (COLACE) 100 mg | every 12 hours as | | | 4/20 | | e | | capsule | needed. | | | 12 | | | + + +-------+---------+------+------+-------+ | albuterol | Inhale 1 puff every | | | 09/1 | | Activ | | (VENTOLIN HFA) 90 | 6 hours as needed | | | 4/20 | | e | | mcg/puff inhaler | for shortness of | | | 12 | | | | | breath | | | | | | + + +-------+---------+------+------+-------+ | oxyCODONE 10 MG | Take 5-10 mg by | | | | | Activ | | TABS | mouth every 4 hours | | | | | e | | | as needed. | | | | | | + + +-------+---------+------+------+-------+ Active Problems + + + | Problem | Noted Date | + + + | Calculus of right ureter | 11/25/2016 | + + + | Obesities, morbid (HCC) | 11/25/2016 | + + + | UTI (urinary tract infection) | 11/25/2016 | + + + | Morbid obesity with BMI of 50.0-59.9, adult ([facility]) | 11/25/2016 | + + + | [...] + | Blood Pressure | 112/57 | 11/25/20160 PST | + + + + | [...] Body Mass Index | 50.82 | 11/25/2016 0611 PST | + + + + Plan [...] | + + + + + | CERVICAL CANCER | | | | | SCREENING (PAP EVERY | 0 | | | | 3 YEARS 21-64 ) | | | | + + + + + | BREAST CANCER | | | | | SCREENING (MAMM Q2 | 9 | | | | YEARS 50-74) | | | | + + + + + | COLON CANCER | | | | | SCREENING | 9 | | | | (COLONOSCOPY EVERY | | | | | 10 YEARS 50-75) | | | | + + + + + | Vaccine: Influenza | | | | | (Season Ended) | 8 | | | + + + + + Implants + +-------+--------+ +--------+--------+--------+ | Implanted | Type | Area | Manufacture | Device | Expira | Model | | | | | r | | tion | / | | | | | | Identi | Date | Serial | | | | | | fier | | / Lot | + +-------+--------+ +--------+--------+--------+ | Stent Uro Unvrs Sft 6fr 26cm | Stent | Right: | YAMILA DRISCOLL | | 08/15/ | [id number] | | - [id number]: Holliey: 1 | | | INCORPORATE | | 2018 | / | | on 11/25/2016 by Rustam Schmid | | Ureter | D | | | [id number] | | GMD | | | | | | 61 | + +-------+--------+ +--------+--------+--------+ Results Not on filefrom Last 3 Months Insurance + +--------+ +--------+ +---------+ | Payer | Benefi | Subscriber | Type | Phone | Address | | | t Plan | ID | | | | | | / | | | | | | | Group | | | | | + +--------+ +--------+ +---------+ | [employer] | [employer] | xxxxxxxx | Medica | [phone] | | MEDICAID HMO | HEALTH | | id | [id number] | | | | [place] | | | | | | | [place] | | | | | + +--------+ +--------+ +---------+ + +--------+ +--------+ + + | Guarantor Name | Accoun | Relation to | Date | Phone | Billing Address | | | t Type | Patient | of | | | | | | | | | | + +--------+ +--------+ + + | SHELBY GALDAMEZ | Person | Self [birth year] | Home: | [address] | | | al/Fam | | 1960 | [phone] | [address] [place], | | | gigi | | | [address] | [place] [address] | + +--------+ +--------+ + +
--- OUTSIDE RECORDS SUMMARY | ~2018-01-15 | XMS | Encounter Summary ---
Demographics + + + | Address | [address] | | | [place] [address] | + + + | Home Phone [...] + + + | Author | [facility] | + + + | Organization | [facility] | + + + | Address | Unknown | + + + | Phone | Unavailable | + + + Support + + +---------+ + | Name | Relationship | Address | Phone | + + +---------+ + | Kristel Teresa | ECON | Unknown | | + + +---------+ + Care Team Providers + +------+ + | Care Ripshear Operator Name | Role | Phone | + +------+ + | Jaimie Monreal MD | PCP | | + +------+ + Encounter Details +--------+ + + + + | Date | Type | Department | Care Team | Description | +--------+ + + + + | 12/25/ | Telephone | Nancy | Antonella Sprague, | | | 2017 | | [facility] | SENIOR SVP | | | | | [address] | | | | | | [place] | | | | | | [address] | | | | | | [phone] | | | +--------+ + + + [...] 2018 | Visit | | DO [address] | | | | | | [place] [facility] | | | | | | [address] | | | | | | | | +--------+---------+ + + + as of this encounter Visit Diagnoses Not on filein this encounter"
--- OUTSIDE RECORDS SUMMARY | ~2018-01-15 | XMS | Encounter Summary ---
Demographics + + + | Address | [address] | | | [place] [address] | + + + | Home Phone | | + + + | Preferred Language | Unknown | + + + | Marital Status | Single | + + + | Congregational Affiliation | Unknown | + + + | Race | Unknown | + + + | Ethnic Group | Unknown | + + + Author + + + | Author | [facility] | + + + | Organization | [facility] | + + + | Address | Unknown | + + + | Phone | Unavailable | + + + Support + + +---------+ + | Name | Relationship | Address | Phone | + + +---------+ + | Kristel Teresa | ECON | Unknown | | + + +---------+ + Care Team Providers + +------+ + | Care Digital Court Reporter Name | Role | Phone | + +------+ + | Jaimie Monreal MD | PCP | | + +------+ + Reason for Referral MRI/CAT Scan (Routine) + +--------+ + + [...] + + | 12/04/ | Ancillary | [facility] | See, Medical | Pain | | 2018 | [facility] | [facility] | Record | | | | | [address] | | | | | | [place] [address] | | | | | | [phone] | | | +--------+ + + + [...] | | | | | [place] | | | | | | [id number] | | | | | | | | +--------+---------+ + + + as of this encounter Results MRI lumbar spine without contrast (11/27/2017 11:11 PM) + + + | Specimen | Performing Laboratory | + + + | | [facility] [address] [facility] [address] [place] [address] | + + + + + | Narrative | + + | This is a non-reportable procedure without a radiologist report and is used for | | image storage only | + + in this encounter Visit Diagnoses + + | Diagnosis | + + | Pain | + + | Generalized pain | + +"
--- OUTSIDE RECORDS SUMMARY | ~2018-01-15 | XMS | Encounter Summary ---
Demographics + + + | Address | [address] | | | [place] [address] | + + + | Home Phone | | + + + | Preferred Language | Unknown | + + + | Marital Status | Single | + + + | Zoroastrian Affiliation | Unknown | + + + | Race | Unknown | + + + | Ethnic Group | Unknown | + + + Author + + + | Author | [facility] | + + + | Organization | [facility] [employer] [facility] | + + + | Address | Unknown | + + + | Phone | Unavailable | + + + Support + + +---------+ + | Name | Relationship | Address | Phone | + + +---------+ + | Kristel Teresa | ECON | Unknown | | + + +---------+ + Care Team Providers + +------+ + | Care Optical Systems Engineer Name | Role | Phone | + +------+ + PCP | Unavailable | + +------+ + Encounter Details +--------+ + + + + | Date | Type | Department | Care Team | Description | +--------+ + + + + | 11/25/ | Orders Only | [facility] | Carmine Frost, | | | 2017 | | [facility] | [facility] [address] | | | | | [address] | [address] [place], | | | | | [place] [address] | [place] [address] | | | | | [phone] | [phone] | | | | | | | [...] | | | | | [place] | | | | | | [address] | | | | | | | | +--------+---------+ + + + as of this encounter Visit Diagnoses Not on filein this encounter"
--- OUTSIDE RECORDS SUMMARY | ~2018-01-15 | XMS | Encounter Summary ---
Demographics + + + | Address | [address] | | | [place] [address] | + + + | Home Phone | | + + + | Preferred Language | Unknown | + + + | Marital Status | Single | + + + | Methodist Affiliation | Unknown | + + + | Race | Unknown | + + + | Ethnic Group | Unknown | + + + Author + + + | Author | [facility] | + + + | Organization | [facility] | + + + | Address | Unknown | + + + | Phone | Unavailable | + + + Support + + +---------+ + | Name | Relationship | Address | Phone | + + +---------+ + | Kristel Teresa | ECON | Unknown | | + + +---------+ + Care Team Providers + +------+ + | Care Manager Of Patient Name | Role | Phone | + +------+ + PCP | Unavailable | + +------+ + Encounter Details +--------+ + + + + | Date | Type | Department | Care Team | Description | +--------+ + + + + | 11/25/ | Telephone | [facility] | Casi Marcus, | | | 2017 | | [facility] [place] | TRUCKING MANAGER | | | | | [address] | | | | | | [place] | | | | | | [address] | | | | | | [phone] | | | +--------+ + + + [...] [place] | | | | | | [address] | | | | | | | | +--------+---------+ + + + as of this encounter Visit Diagnoses Not on filein this encounter"
--- OUTSIDE RECORDS SUMMARY | ~2018-01-15 | XMS | Encounter Summary ---
Demographics + + + | Address | [address] | | | [place] [address] | + + + | Home Phone | | + + + | Preferred Language | Unknown | + + + | Marital Status | Single | + + + | Temple Affiliation | Unknown | + + + | Race | Unknown | + + + | Ethnic Group | Unknown | + + + Author + + + | Author | [facility] | + + + | Organization | [facility] | + + + | Address | Unknown | + + + | Phone | Unavailable | + + + Support + + +---------+ + | Name | Relationship | Address | Phone | + + +---------+ + | Kristel Teresa | ECON | Unknown | | + + +---------+ + Care Team Providers + +------+ + | Care Engraver Ornamental Design Name | Role | Phone | + +------+ + | Jaimie Monreal MD | PCP | | + +------+ + Encounter Details +--------+ + + + + | Date | Type | Department | Care Team | Description | +--------+ + + + + | 12/04/ | Procedure | [facility] | | | | 2018 | Pass | [facility] | | | | | | RADIOLOGY [address] | | | | [address] | | | | | | [place] [address] | | | | | | [phone] | | | +--------+ + + + [...] [place] | | | | | | [address] | | | | | | | | +--------+---------+ + + + as of this encounter Visit Diagnoses Not on filein this encounter"
--- OUTSIDE RECORDS SUMMARY | ~2018-01-15 | XMS | Encounter Summary ---
Demographics + + + | Address | [address] | | | [place] [address] | + + + | Home Phone [...] + + + | Author | [facility] [employer] | + + + | Organization | [facility] [employer] [facility] | + + + | Address | Unknown | + + + | Phone | Unavailable | + + + Support + + +---------+ + | Name | Relationship | Address | Phone | + + +---------+ + | Kristel Teresa | ECON | Unknown | | + + +---------+ + Care Team Providers + +------+ + | Care Sales Center Associate Name | Role | Phone | + +------+ + PCP | Unavailable | + +------+ + Encounter Details +--------+ + + + + | Date | Type | Department | Care Team | Description | +--------+ + + + + | 11/25/ | Telephone | [facility] | Radha Reynoso CMA | | | 2018 | | [facility] [place] | | | | | | [address] | | | | | | [place] | | | | | | [address] | | | | | | [phone] | | | +--------+ + + + [...] [place] | | | | | | [address] | | | | | | | | +--------+---------+ + + + as of this encounter Visit Diagnoses Not on filein this encounter"
--- OUTSIDE RECORDS SUMMARY | ~2018-01-15 | XMS | Clinical Summary ---
Demographics + + + | Address | [address] | | | [address] | | | [place] [address] | + + + | Home Phone | | + + + | Preferred Language | Unknown | + + + | Marital Status | | + + + | Mandaen Affiliation | [phone] | + + + [...] [place] | | | | | [address] | | + + + + + | Casandra Smith | ECON | [address] | | | | | [place] | | + + + + + Care Team Providers + +------+ + | Care Ramp Lead Name | Role | Phone | [...] Morbid obesity with BMI of 50.0-59.9, adult ([facility]) | 11/25/2016 | + + + | ABDOMINAL PAIN-GENERALIZED | 03/06/2012 | + + + | Obstructive sleep apnea | 06/21/2011 | + + + | Disorder of function of stomach | 10/26/2008 | + + + + + | Overview: Overview: N/V and abdominal pain. Seen Hood Sommer | | [facility] 11/02/08diverticulosis sigmoid and | | [...] | YAMILA DRISCOLL | | 08/15/ | [id number] | | - [id number]: Holliey: 1 | | | INCORPORATE | | 2018 | / | | on 11/25/2016 by Rustam Schmid | | Ureter | D | | | /[id number] | | GMD | | | | [...] gigi | | | [address] | [place] [address] | + +--------+ +--------+ + +
--- OUTSIDE RECORDS SUMMARY | ~2018-01-15 | XMS | Encounter Summary ---
Demographics + + + | Address | [address] | | | [place] [address] | + + + | Home Phone [...] + + + | Author | [facility] | + + + | Organization | [facility] | + + + | Address | Unknown | + + + | Phone | Unavailable | + + + Support + + +---------+ + | Name | Relationship | Address | Phone | + + +---------+ + | Kristel Teresa | ECON | Unknown | | + + +---------+ + Care Team Providers + +------+ + | Care Clinic Nurse Name | Role | Phone | + +------+ + PCP | Unavailable | + +------+ + Encounter Details +--------+ + + + + | Date | Type | Department | Care Team | Description | +--------+ + + + + | 11/25/ | Telephone | [facility] | Casi Marcus, | | | 2017 | | [facility] [place] | PHOTOGRAPHY COLORIST | | | | | [address] | | | | | | [place] | | | | | | [address] | | | | | | [phone] | | | +--------+ + + + [...] [place] | | | | | | [address] | | | | | | | | +--------+---------+ + + + as of this encounter Visit Diagnoses Not on filein this encounter"
--- OUTSIDE RECORDS SUMMARY | ~2018-01-15 | XMS | Encounter Summary ---
Demographics + + + | Address | [address] | | | [place] [address] | + + + | Home Phone [...] + + + | Author | [facility] | + + + | Organization | [facility] | + + + | Address | Unknown | + + + | Phone | Unavailable | + + + Support + + +---------+ + | Name | Relationship | Address | Phone | + + +---------+ + | Kristel Teresa | ECON | Unknown | | + + +---------+ + Care Team Providers + +------+ + | Care Pediatric Neuropsychologist Name | Role | Phone | + +------+ + | Jaimie Monreal MD | PCP | | + +------+ + Reason for Visit + + + | Reason | Comments | + + + | Follow-up | | + + + Consult and Treat (Routine) + +--------+ + + + + | Status | Reason | Specialty | Diagnoses / | Referred By | Referred To | | | | | Procedures | Contact | Contact | + +--------+ + + + + | Authorized | | Neurosurgery | Diagnoses | | [facility] | | | | | | [facility] | Neurosurgery | | | | | Radiculopath | , Deb[place], | [address] | | | | | y, lumbar | DO [address] | [address] | | | | | region | [address] | [place] [address] | | | | | | [place] | [place], [place] | | | | | | [address] | [address] | | | | | | Phone: | Phone: | | | | | | [phone] | [phone] | | | | | | Fax: | Fax: | | | | | | [phone] | [phone] | + +--------+ + + + + Encounter Details +--------+---------+ + + + | Date | Type | Department | Care Team | Description | +--------+---------+ + + + | 01/08/ | Office | [facility] | Carmine Frost, | Radiculopathy of | | 2018 | Visit | [facility] | TELEPHONE SWITCHBOARD OPERATOR [address] | lumbar region | | | | [address] | DR [place]ANT[place], | (Primary Dx); | | | | [place] | [place] [address] | Difficulty walking; | | | | [address] | [phone] | DDD (degenerative | | | | [phone] | | disc disease), | | | | | | lumbar; Facet | | | | | | arthropathy, lumbar | | | | | | ([facility]); | | | | | | Osteoarthritis [...] | | | pain, chronic, left | +--------+---------+ + + + Social [...] + + in this encounter Progress Notes Carmine Frost ARNP - 01/08/2018 1:00 PM PDTFormatting of this note may be different f rom the original. SUBJECTIVE Shelby Galdamez is a 57 y.o. female Is here for follow up with chronic low back pain and le ft hip pain. Patient did about 3-4 session of physical therapy, aqua therapy which help with mobilization but continue having low back pain and left hip pain. Pt continue having the sa me symptoms and continue getting worse this past two yrs especially with difficulty with iman barriga. She usually ambulate with walker at home and use wheel chair while visiting the [facility] in. [place] have not seen Dr. Jennings to evaluate for her left hip for unknown reason. S he also will see Dr. Sepulveda for oral chronic pain management. She complains of left groin pain and lower back pain. the pain increase with activity such as bending backwards, bending forwards, bending sideways, prolonged standing, walking, and c hanging form sitting to standing position. She is unable to walk far and has to sit down aft er 5 minutes standing. She also complains of tingling and muscle cramps on the left posterior calf area. She denie s numbness on the BLE. Patient denies any recent fever, night pain, chills, night sweats, h eadaches, weakness or recent falls. Denies any saddle paresthesias or bowel/bladder dysfunct ion. She has hx of R hip replacement in 2002 and redo in 2009. She also see Dr. Vicente and went t hrough extensive work up for her left hip. They were recommended conservative mgmt. Pt has hx of morbid obesity, tobacco smoker, MAMADOU, RLS, BLE edema, osteoarthritis, hypertens ion and, osteomyelitis in the right hip, chronic pain syndrome Patient underwent lumbar MRI at [facility] on 11/27/2017 with multilevel lumbar DD D. L2-L3 mild to moderate disc bulging with significant loss of disc height and posterior en dplate osteophyte combined with ligamentum flavum thickening and facet subluxation cause mod erate central canal stenosis and bilateral moderate neural foramina narrowing. There is also broad-based disc bulging at L3-L4 and L4-L5 with facet subluxation and hypertrophy and liga mentum flavum thickening which cause moderate central canal stenosis at L3-4 and severe cent ral canal stenosis at L4-L5. There is facet joint effusion at L4-L5 bilaterally. Scoliosis noted in the coronal view. No cord signal change. Lumbar x-ray with flexion and extension completed on 10/14/2017 show grade 1 anterolisthesis L4 on L5 with multilevel lumbar disc osteophyte and disc degenerative disease, and facet ar thropathy. No evidence of pars defect. Previous treatment history: Flexeril, Percocet 5/325 mg 3-4 tablets daily with no relief. She is unable to take nonster oidal anti-inflammatory due to stomach ulcer. She is stop taking gabapentin due to hallucina tion adverse side effect. Patient has not done any physical therapy this past 6 months. Sh manuel has not done chiropractor, massage, acupuncture. She had left hip cortisone injection back in April 2017 with temporary relief. Patient never had lumbar epidural steroid injection. Pertinent medical history: Morbid obesity, tobacco use 1/2 ppd. Patient lives in [facility]. She is on disability and unemployed. She has caregiver t hat comes to see her every other day. She is here accompany by caregiver with today visit. History reviewed. No pertinent past medical history. History reviewed. No pertinent surgical history. History reviewed. No pertinent family history. Outpatient Encounter Prescriptions as of 01/08/2018 Medication Sig Dispense Refill albuterol (VENTOLIN HFA) 108 (90 Base) MCG/ACT inhaler Inhale 1 puff every 6 hours as n eeded for shortness of breath Cyclobenzaprine HCl (FLEXERIL PO) Take by mouth as needed. desvenlafaxine (PRISTIQ) 50 MG 24 hr tablet diazePAM (VALIUM) 5 MG tablet Take 1 tablet by mouth daily as needed for Anxiety or Sle ep. May take 1-2 tabs 15-30 minutes prior MRI imaging for anxiety. 2 tablet 0 furosemide (LASIX) 20 MG tablet take 1 tablet by mouth once daily gabapentin (NEURONTIN) 100 MG capsule Take 100 mg by mouth 2 (two) times daily. 0 losartan (COZAAR) 50 MG tablet Take 50 mg by mouth daily. 1 omeprazole (PRILOSEC) 20 MG capsule Take 20 mg by mouth. oxyCODONE-acetaminophen (PERCOCET) 5-325 MG per tablet Take 1 tablet by mouth. No facility-administered encounter medications on file as of 01/08/2018. Allergies Allergen Reactions Lipitor [Atorvastatin] Hives and Rash Morphine Hives, Nausea and Vomiting and Rash Social History Social History Marital status: Single Spouse name: N/A Number of children: N/A Years of education: N/A Social History Main Topics Smoking status: None Smokeless tobacco: None Alcohol use None Drug use: Unknown Sexual activity: Not Asked Other Topics Concern None Social History Narrative None History reviewed. No pertinent family history. Review of Systems Constitutional: Positive for activity change and fatigue. Negative for chills and fever. Respiratory: Positive for shortness of breath. Gastrointestinal: Positive for constipation. Negative for abdominal pain. Musculoskeletal: Positive for back pain, gait problem, myalgias, neck pain and neck stiffne ss. Neurological: Positive for weakness (BLE). Negative for dizziness and numbness. As per HPI, otherwise a 10 point ROS was performed and was negative OBJECTIVE There were no vitals filed for this visit. Body mass index is 51.15 kg/m. Ht 1.626 m (5' 4") | Wt 135.2 kg (298 lb) | BMI 51.15 kg/m Physical Exam DETAILED NEUROLOGIC EXAM Lumbosacral Exam: Motor: Right Left Hip flexors: 5 3 Quads: 5 3 Hamstrings: 5 5 Dorsiflexion: 5 5 Extensor hallicus 5 5 Plantar flexion 5 5 Deep tendon reflexes: Right Left Patellar 1 1 Achilles 1 1 Detailed Neurologic Exam MENTAL STATUS: Alert and oriented to time, place and person, in tears due to chronic pain Affect is normal Memory-intact. Fund of knowledge normal Speech fluent, no expressive issues STATION/GAIT: Unsteady with antalgic gait. She is struggling when getting up from wheel chair. She use walker while at home. Patient barely able to walk and struggling with the help of a roll ing walker and in agony of pain. Walking on toes- Unable to perform Walking on heels- unable to perform CRANIAL NERVES: Funduscopic exam not performed PERRLA, EOMI, No Ptosis Motor, sensory intact, Face symmetric Hearing normal/symmetric Pharynx symmetric/normal Sternocleidomastoid/Trapzezius Normal Tongue midline, no atrophy/fasciculations L SPINE: Inspection-deformity: Normal Palpation over spinous processes and facets:Tenderness at Right paralumbar, Left paral umbar Sciatic notch pressure: Right - negative; Left - positive Muscle Tightness/Spasm: Left paralumbar ROM Reduction: Painful on flexion, extension, rotation, and lateral movement Sitting Straight Leg Raise - Left: Positive at 45 degrees ipsilateral Sitting Straight Leg Raise - Right: Negative at 45 degrees ipsilateral Sacroiliac joints tenderness: Right - negative; Left - negative ESTRADA (Flexion, abduction, external) test: Right - negative; Left - positive Pt exhibits decreased ROM, tenderness, pain and spasm on the lower back. No bony tendernes s, no swelling, no edema SENSORY: -numbness on the left calf area. -Pinprick normal -Proprioception normal at great toes IMAGING: Lumbar MRI completed on 11/27/2017: multilevel lumbar DDD. L2-L3 mild to moderate disc bulging with significant loss of disc he ight and posterior endplate osteophyte combined with ligamentum flavum thickening and facet subluxation cause moderate central canal stenosis and bilateral moderate neural foramina fred rowing. There is also broad-based disc bulging at L3-L4 and L4-L5 with facet subluxation and hypertrophy and ligamentum flavum thickening which cause moderate central canal stenosis at L3-4 and severe central canal stenosis at L4-L5. There is facet joint effusion at L4-L5 annie aterally. Scoliosis noted in the coronal view. No cord signal change. Lumbar x-ray with flexion and extension completed on 10/14/2017 show grade 1 anterolisthesis L4 on L5 with multilevel lumbar disc osteophyte and disc degenerative disease, and facet ar thropathy. No evidence of pars defect. Bilateral hip x-ray completed on 12/04/2017 Left hip demonstrate severe axial narrowing of the left hip joint space, loss of articular cartilage, arthritis changes with no evidence of fracture or dislocation. Imaging: I reviewed both the imaging studies and the available radiology ASSESSMENT & PLAN Visit Diagnoses and Associated Orders: Shelby was seen today for follow-up. Radiculopathy of lumbar region Difficulty walking DDD (degenerative disc disease), lumbar Facet arthropathy, lumbar (HCC) Osteoarthritis of lumbar spine, unspecified spinal osteoarthritis complication status Decreased range of motion of hip Hip pain, chronic, left 1. Shelby Galdamez is a 57 y.o. y/o female who presents today with chronic low back and left hip. She is continue having difficulty with walking and continuing getting worse this past couple years. Lumbar MRI show multilevel degenerative disc disease and spondylosis causing n eural compromise there was level at L2-L3, L3-L4, and L4-L5. Moderate central canal stenosis at L3-4 and severe central canal stenosis at L4-L5. Lumbar extremity flexion and extension showed grade 1 anterolisthesis of L4 on L5 2. Patient symptoms present with objective weakness on BLE especially left leg, positive le ft ESTRADA test, asymmetric deep tendon reflexed, decreased sensation in BLE sec to BLE edema. On the physical exam patient has bilateral motor legs weakness and pain during weight bear ing, positive straight leg raising test on the left leg, diminished patellar reflex and ach illes reflex. Pt has numbness in left L4 distribution. Ambulate with poor gait. I will refe r patient to see [facility] hip specialist Dr. Marquis for further hip evaluation. We will obta in bilateral hip x-ray prior to see Dr. Marquis. She has positive L Estrada test especially o n the left hip, decreased ROM and severe pain per palpitation. Pt already has an appointment to see pain management with Dr. Sepulveda to help managing with her chronic pain. Her PCP perez s been prescribing her with opioids which did not provide any relief and cause more side eff ects including drowsiness, dizziness, and constipation. She is reluctant to take more medica tion. She has not been taking opioids this past 2 months 3. The treatment options for chronic low back pain were discussed. We discussed non-opera tive options and conservative measures such as observation, living with it as it is. We will obtain lumbar MRI and x-ray flexion and extension to look for changes in facet and uncover tebral joints, osteophytes, disk space and joint space narrowing. There could be coordinati on and similar symptoms with spine and hip problems. She has multiple lumbar DDD, spondylosi s, facet arthropathy, ligamentum flavum thickening which make it difficult to target for spi ne intervention and may not help ease down her low back pain. Dr Severino recommended to have t he left hip evaluated first and continue oral pain mgmt for pain relief. Pt will be difficul t to managed due to many co morbidities including smoker, obesity, function limitation, and advance age. 4. Advised patient to continue work with Physical Therapy at [place] to work on lumbar core strengthening and conditioning, and gentle range of motion for 4-6 weeks. Patient will continue follow-up with her primary care for oral pain management. Patient is continue taking Percocet 5/325 mg 3-4 tablets daily. She is stop taking gabapentin due to hallucinati on and drowsiness. She is not eligible for lumbar epidural steroid injection with [facility] pro viders due to her insurance with [employer] from [place]. She also can get lumbar epidural steroid injection or median branch block at pain management in [place] possible [facility]. Remind pt to contact her PCP to get referral to intervention pain management in [place]. Instructed patient if any progressive neurologic symptoms or myelopathy such as wea kness, bladder or bowel incontinence, gait disturbance, loss of dexterity, or fine motor con trol to present to the ED. Patient agreed with the plan and elect to proceed. Follow up a s needed. We discussed my clinical findings, the diagnostic studies, and treatment options, risks and benefits in detail. I answered questions to their expressed satisfaction. We reviewed treat ment options, Please feel free to contact me with any questions. Primary Care Physician: Jaimie KO Neurosurgery Nurse Practitioner 01/08/2018 Total time spent 25 minutes was spent with [id number] counseling discussing treatment op tions, reviewing MRI, symptom review, physical examination, and education, over half of that time was spent counseling and coordination of care. Syed Frost has created this entry using [employer] Voice Recognition software and [employer] macros. The entry has been reviewed and there may still exist sound alike word errors. in this encounter Plan of Treatment +--------+---------+ + + + | Date | Type | Specialty | Care Team | Description | +--------+---------+ + + + | 01/20/ | Office | Dolorology | Xiang Sepulveda, | | | 2018 | Visit | | DO [address] | | | | | | [place] | | | | | | [address] | | | | | | | | +--------+---------+ + + + as of this encounter Visit Diagnoses + + | Diagnosis | + + | Radiculopathy of lumbar region - Primary | + + | Thoracic or lumbosacral neuritis or radiculitis, unspecified | + + | Difficulty walking | + + | Difficulty in walking | + + | DDD (degenerative disc disease), lumbar | + + | Degeneration of lumbar or lumbosacral intervertebral disc | + + | Facet arthropathy, lumbar (HCC) | + + | Lumbosacral spondylosis without myelopathy | + + | Osteoarthritis of lumbar spine, unspecified spinal osteoarthritis complication status | + + | Decreased range of motion of hip | + + | 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
--- OUTSIDE RECORDS SUMMARY | ~2018-01-15 | XMS | Encounter Summary ---
Demographics + + + | Address | [address] | | | [place] [address] | + + + | Home Phone | | + + + | Preferred Language | Unknown | + + + | Marital Status | Single | + + + | Jew Affiliation | Unknown | + + + | Race | Unknown | + + + | Ethnic Group | Unknown | + + + Author + + + | Author | [email or web address] | + + + | Organization | [facility] | + + + | Address | Unknown | + + + | Phone | Unavailable | + + + Support + + +---------+ + | Name | Relationship | Address | Phone | + + +---------+ + | Kristel Teresa | ECON | Unknown | | + + +---------+ + Care Team Providers + +------+ + | Care Reheater Helper Name | Role | Phone | + +------+ + PCP | Unavailable | + +------+ + Encounter Details +--------+ + + + + | Date | Type | Department | Care Team | Description | +--------+ + + + + | 10/25/ | Telephone | dle | Jailene Orta, | | | 2017 | | [facility] | HEMMING AND TACKING MACHINE OPERATOR | | | | | [address] | | | | | | [place] | | | | | | [address] | | | | | | [phone] | | | +--------+ + + + [...] [place] | | | | | | [address] | | | | | | | | +--------+---------+ + + + as of this encounter Visit Diagnoses Not on filein this encounter"
--- OUTSIDE RECORDS SUMMARY | ~2018-01-15 | XMS | Encounter Summary ---
Demographics + + + | Address | [address] | | | [place] [address] | + + + | Home Phone | | + + + | Preferred Language | Unknown | + + + | Marital Status | Single | + + + | Jainism Affiliation | Unknown | + + + | Race | Unknown | + + + | Ethnic Group | Unknown | + + + Author + + + | Author | [employer] [employer] | + + + | Organization | [facility] | + + + | Address | Unknown | + + + | Phone | Unavailable | + + + Support + + +---------+ + | Name | Relationship | Address | Phone | + + +---------+ + | Kristel Teresa | ECON | Unknown | | + + +---------+ + Care Team Providers + +------+ + | Care School Lunch Manager Name | Role | Phone | + +------+ + PCP | Unavailable | + +------+ + Encounter Details +--------+ + + + + | Date | Type | Department | Care Team | Description | +--------+ + + + + | 10/18/ | Hospital | [facility] | See, Medical | Pain | | 2018 | Encounter | [facility] | Record | | | | | RADIOLOGY [address] | | | | | [address] | | | | | | [place] [address] | | | | | | [phone] | | | +--------+ + + + [...] Medications at Time of Discharge + + +-------+---------+ + + | Medication | Sig. | Disp. | Refills | Start | End Date | | | | | | Date | | + + +-------+---------+ + + | albuterol | Inhale 1 puff every | | | 06/13/ | | | (VENTOLIN HFA) 108 | 6 hours as needed | | | 12 | | | (90 Base) MCG/ACT | for shortness of | | | | | | inhaler | breath | | | | | + + +-------+---------+ + + | desvenlafaxine | | | | 09/28/20 | | | (PRISTIQ) 50 MG 24 | | | | 17 | | | hr tablet | | | | | | + + +-------+---------+ + + | furosemide (LASIX) | take 1 tablet by | | | 08/28/20 | | | 20 MG tablet | mouth once daily | | | 17 | | + + +-------+---------+ + + | gabapentin | Take 100 mg by mouth | | 0 | 09/18/20 | | | (NEURONTIN) 100 MG | 2 (two) times | | | 17 | | | capsule | daily. | | | | | + + +-------+---------+ + + | losartan (COZAAR) | Take 50 mg by mouth | | 1 | 10/03/19 | | | 50 MG tablet | daily. | | | 18 | | + + +-------+---------+ + + | omeprazole | Take 20 mg by mouth. | | | | | | (PRILOSEC) 20 MG | | | | | | | capsule | | | | | | + + +-------+---------+ + + | | Take 1 tablet by | | | 10/03/19 | | | oxyCODONE-acetaminop | mouth. | | | 18 | 8 | | hen (PERCOCET) 5-325 | | | | | | | MG per tablet | | | | | | + + +-------+---------+ + + as of this encounter Plan [...] [place] | | | | | | [address] | | | | | | | | +--------+---------+ + + + as of this encounter Results X-ray lumbar spine 4-5 views (10/14/2017 1:36 AM) + + + | Specimen | Performing Laboratory | + + + | | [place] [address] | + + + + + | Narrative | + + | This is a non-reportable procedure without a radiologist report and is used for | | image storage only | + + in this encounter Visit Diagnoses + + | Diagnosis | + + | Pain | + + | Generalized pain | + +"
--- OUTSIDE RECORDS SUMMARY | ~2018-01-15 | XMS | Encounter Summary ---
Demographics + + + | Address | [address] | | | [place] [address] | + + + | Home Phone | | + + + | Preferred Language | Unknown | + + + | Marital Status | Single | + + + | Judaism Affiliation | Unknown | + + + | Race | Unknown | + + + | Ethnic Group | Unknown | + + + Author + + + | Author | [facility] [employer] [facility] | + + + | Organization | [facility] | + + + | Address | Unknown | + + + | Phone | Unavailable | + + + Support + + +---------+ + | Name | Relationship | Address | Phone | + + +---------+ + | Kristel Teresa | ECON | Unknown | | + + +---------+ + Care Team Providers + +------+ + | Care Adhesive Primer Name | Role | Phone | + +------+ + | Jaimie Monreal MD | PCP | | + +------+ + Encounter Details +--------+ + + + + | Date | Type | Department | Care Team | Description | +--------+ + + + + | 12/04/ | Hospital | [facility] | Carmine Frost, | Decreased range of | | 2018 | Encounter | [facility] | RESEARCH CHIEF ENGINEER [address] | motion of hip; Hip | | | | Xray [address] | [address] [place], | pain, chronic, left | | | | 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
--- OUTSIDE RECORDS SUMMARY | ~2018-01-15 | XMS | Encounter Summary ---
Demographics + + + | Address | [address] | | | [place] [address] | + + + | Home Phone | | + + + | Preferred Language | Unknown | + + + | Marital Status | Single | + + + | Faith Affiliation | Unknown | + + + | Race | Unknown | + + + | Ethnic Group | Unknown | + + + Author + + + | Author | [facility] [employer] | + + + | Organization | [facility] [employer] [facility] | + + + | Address | Unknown | + + + | Phone | Unavailable | + + + Support + + +---------+ + | Name | Relationship | Address | Phone | + + +---------+ + | Kristel Teresa | ECON | Unknown | | + + +---------+ + Care Team Providers + +------+ + | Care Forest Technician Name | Role | Phone | + +------+ + | Jaimie Monreal MD | PCP | | + +------+ + Encounter Details +--------+ + + + + | Date | Type | Department | Care Team | Description | +--------+ + + + + | 10/18/ | Ancillary | [facility] | See, Medical | Pain | | 2018 | Orders | [facility] Xray | Record | | | | | [address] | | | | | | [place] [address] | | | | | | [phone] | | | +--------+ + + + [...] [place] | | | | | | [address] | | | | | | | | +--------+---------+ + + + as of this encounter Results X-ray lumbar spine 4-5 views (10/14/2017 1:36 AM) + + + | Specimen | Performing Laboratory | + + + | | [place] [id number] [place] [address] | + + + + + | Narrative | + + | This is a non-reportable procedure without a radiologist report and is used for | | image storage only | + + in this encounter Visit Diagnoses + + | Diagnosis | + + | Pain | + + | Generalized pain | + +"
--- OUTSIDE RECORDS SUMMARY | ~2018-01-15 | XMS | Encounter Summary ---
Demographics + + + | Address | [address] | | | [place] [address] | + + + | Home Phone | | + + + | Preferred Language | Unknown | + + + | Marital Status | Single | + + + | Islam Affiliation | Unknown | + + + | Race | Unknown | + + + | Ethnic Group | Unknown | + + + Author + + + | Author | [facility] | + + + | Organization | [facility] | + + + | Address | Unknown | + + + | Phone | Unavailable | + + + Support + + +---------+ + | Name | Relationship | Address | Phone | + + +---------+ + | Kristel Teresa | ECON | Unknown | | + + +---------+ + Care Team Providers + +------+ + | Care Practice Specialist Name | Role | Phone | + +------+ + | Jaimie Monreal MD | PCP | | + +------+ + Reason for Referral Consultation (Routine) + + + + + [...] Required | Medicine / | Radiculopath | GAS SHOVEL OPERATOR [address] | [address] | | | | Dolorology | y of lumbar | [address] | DR [address] | | | | | region | [place] [address] | [place], [place] | | | | | Osteoarthrit | [place], [place] | [address] Phone: | | | | | is of lumbar | [address] | [phone] | | | | | spine, | Phone: | Fax: | | | | | unspecified | [phone] | [phone] | | | | | spinal | Fax: | | | | | | osteoarthrit | [phone] | | | | | | is | | | | | | | complication | | | | | | | status | | | | | | | Facet | | | | | | | arthropathy, | | | | | | | lumbar | | | | | | | ([facility]) DDD | | | | | | [...] + + + + + + + Surgical (Routine) + + + + + + + | Status | Reason | Specialty | Diagnoses / | Referred By | Referred To | | | | | Procedures | Contact | Contact | + + + + + + + | Authorized | Specialty | Orthopedic | Diagnoses | Margot, | [facility] | | | Services | Surgery | Difficulty | Carmine S, | [address] | | | Required | | walking | GAS SHOVEL OPERATOR [address] | [address] | | | | | Decreased | [address] | [place], [place] | | | | | range of | [address] [address] | [address] | | | | | motion of | [place], [place] | Phone: | | | | | hip Hip | [address] | [phone] | | | | | pain, | Phone: | Fax: | | | | | chronic, | [phone] | [phone] | | | | | left | Fax: | | | | | | | [phone] | | + + + + + + + Reason for [...] | | Neurosurgery | Diagnoses | | Knc Kadlec | | | | | | Cornelio-Israel | Neurosurgery | | | | | Radiculopath | , Debby, | [address] | | | | | y, lumbar | DO [address] | [address] | | | | | region | [address] | [address] | | | | | | [place] [address] | [place] | | | | | | [address] | [address] | | | | | | Phone: | Phone: | | | | | | [phone] | [phone] | | | | | | Fax: | Fax: | | | | | | [phone] | [phone] | + +--------+ + + + + Encounter Details +--------+---------+ + + + | Date | Type | Department | Care Team | Description | +--------+---------+ + + + | 12/04/ | Office | [facility] | Carmine Frost, | Radiculopathy of | | 2018 | Visit | [facility] | GAS SHOVEL OPERATOR [address] | lumbar region | | | | [address] | DR SANTA, | (Primary Dx); | | | | [place], [place] | [place] [address] | Osteoarthritis of | | | | [address] | [phone] | lumbar spine, | | | | [phone] | | unspecified spinal | | | [...] + | Weight | 134.3 kg (296 lb) | 12/04/2017 1:08 PM PST | + + + + | Height | 162.6 cm (5' 4") | 12/04/2017 1:08 PM PST | + + + + | Body Mass Index | 50.81 | 12/04/2017 1:08 PM PST | + + + + in this encounter Progress Notes Carmine Frost ARNP - 12/04/2017 1:00 PM PSTFormatting of this note may be different f rom the original. SUBJECTIVE Shelyb Galdamez is a 57 y.o. female seen by neurosurgery clinic for lumbar MRI review and sy mptom follow-up secondary to chronic low back pain and left hip pain. Pt continue having the same symptoms and continue getting worse this past two yrs especially with difficulty with walking. She usually ambulate with walker and now has to use wheel chair or rolling walker. She complains of left groin pain and [...] 2009. She also see Dr. Vicente and dyan morales extensive work up for her left hip. They were recommended conservative mgmt. Pt has hx of morbid obesity, tobacco smoker, MAMADOU, RLS, BLE edema, osteoarthritis, hypertens ion and, osteomyelitis in the right hip, chronic pain syndrome Patient underwent lumbar MRI at [facility] on 11/27/2017 with multilevel lumbar DD D. [...] tobacco use 1/2 ppd. Patient lives in [facility]. She is on disability and unemployed. She has caregiver hernan hat comes to see her every other day. She is here accompany by caregiver with today visit. History reviewed. No pertinent past medical history. History reviewed. No pertinent surgical history. History reviewed. No pertinent family history. Outpatient Encounter Prescriptions as of 12/04/2017 Medication Sig Dispense Refill Cyclobenzaprine HCl (FLEXERIL PO) Take by mouth as needed. albuterol (VENTOLIN HFA) 108 (90 Base) MCG/ACT inhaler Inhale 1 puff every 6 hours as n eeded for shortness of breath desvenlafaxine (PRISTIQ) 50 MG 24 hr tablet [...] facility-administered encounter medications on file as of 12/04/2017. Allergies Allergen Reactions Lipitor [Atorvastatin] Hives and [...] ROS was performed and was negative OBJECTIVE Vitals: Body mass index is 50.81 kg/m. Ht 1.626 m (5' 4") | Wt 134.3 kg (296 lb) | BMI 50.81 kg/m Physical Exam DETAILED NEUROLOGIC EXAM Lumbosacral [...] ar thropathy. No evidence of pars defect. Imaging: I reviewed both the imaging studies and the available radiology ASSESSMENT & PLAN Visit Diagnoses and Associated Orders: Shelby was seen today for follow-up. Radiculopathy of lumbar region - Ambulatory referral to Pain Clinic Osteoarthritis of lumbar spine, unspecified spinal osteoarthritis complication status - Ambulatory referral to Pain Clinic Facet arthropathy, lumbar - Ambulatory referral to Pain Clinic Difficulty walking - Ambulatory referral to Orthopedic Surgery DDD (degenerative disc disease), lumbar - Ambulatory referral to Pain Clinic Decreased range of motion of hip - Ambulatory referral to Orthopedic Surgery - X-ray hips bilateral; Future Hip pain, chronic, left - Ambulatory referral to Orthopedic Surgery - X-ray hips bilateral; Future - Ambulatory referral to Pain Clinic 1. Shelby Galdamez is a 57 y.o. y/o female who presents today with chronic low back and left hip. She is having difficulty with walking and continuing getting worse this past couple ye ars. Lumbar MRI show multilevel degenerative disc disease and spondylosis causing neural com promise there was level at L2-L3, L3-L4, and L4-L5. Moderate central canal stenosis at L3-4 and severe central canal stenosis at L4-L5. Lumbar extremity flexion and extension showed gr manuel 1 anterolisthesis of L4 on L5 2. [...] I will refe r patient to see [facility] hip specialist Dr. Marquis for further hip evaluation. We will obta in bilateral hip x-ray prior to see Dr. Marquis. She has positive L Estrada test especially o n the left hip, decreased ROM and severe pain per palpitation. I will also refer patient to see pain management Dr. Sepulveda to help managing with her chronic pain. Her PCP has been pre scribing her with opioids which did not provide any relief and cause more side effects inclu ding drowsiness, dizziness, and constipation. She is reluctant to take more medication. 3. The treatment options for chronic low [...] help ease down her low back pain. I will discuss with Dr. Severino more detail while he is in the clinic for possible lumbar spine surgery. 4. Referral placed for Physical Therapy at [place] to work on lumbar core strengthening and conditioning, and gentle range of motion for 4-6 weeks. Gentle range of motion and ba ck and core strengthening. Functional activities to increase strength. Gait training to impr ove safety and decreases of falls. Educate patient regarding posture, body mechanics, lifti ng techniques, and progression of the home-exercise; aquatic therapy, and manual therapy rell hniques to promote ROM, relaxation, and pain relief. Patient will continue follow-up with her primary care for oral pain management. Patient is continue taking Percocet 5/325 mg 3-4 tablets daily. She is stop taking gabapentin due to hallucination and drowsiness. She is not eligible for lumbar epidural steroid injection due to her insurance with [employer] from [place]. Instructed patient if any progressive neurologic symptoms or myelopathy such as weakness, b ladder or bowel incontinence, gait disturbance, loss of dexterity, or fine motor control to present to the ED. Patient agreed with the plan and elect to proceed. Follow up in 2-3 we eks to monitor progress post PT. 5. Addendum: Yesterday hip xray showed arthritic changes of the left hip with axial narrowi ng suggesting loss of articular cartilage. I spoke with Dr. Severino and discussed the L MRI, x -ray and case with him. He recommended to have the left hip evaluated first and continue ora l pain mgmt for pain relief. Pt will be difficult to managed due to many co morbidities incl uding smoker, obesity, function limitation, and age. We discussed my clinical findings, the diagnostic studies, and treatment options, risks and benefits in detail. I answered questions to their expressed satisfaction. We reviewed treat ment options, Please feel free to contact me with any questions. Primary Care Physician: Jaimie KO Neurosurgery Nurse Practitioner 12/04/2017 Total time spent 25 minutes was spent with [id number]-jg-[id number] counseling discussing treatment op tions, reviewing MRI, symptom review, physical examination, and education, over half of that time was spent counseling and coordination of care. Syed Frsot has created this entry using [employer] Voice Recognition software and [employer] macros. The entry has been reviewed and [...] [place] | | | | | | [address] | | | | | | | | +--------+---------+ + + + + +--------+ + + | Name | Priori | Associated Diagnoses | Order Schedule | | | ty | | | + +--------+ + + | Ambulatory referral to Orthopedic | Routin | Difficulty walking | Ordered: 12/04/2017 | | Surgery | e | Decreased range of | | | | | motion of hip Hip | | | | | pain, chronic, left | | + +--------+ + + | Ambulatory referral to Pain | Routin | Radiculopathy of | Ordered: 12/04/2017 | | Clinic | e | lumbar region | | | | | Osteoarthritis of | | | | | lumbar spine, | | | | | unspecified spinal | | | | | osteoarthritis | | | | | complication status | | | | | Facet arthropathy, | | | | | lumbar DDD | | | | | (degenerative disc | | | | | disease), lumbar | | | | | Hip pain, chronic, | | | | | left | | + +--------+ + + as of this encounter Results X-ray hips bilateral (12/04/2017 2:31 PM) + + + | Specimen | Performing Laboratory | + + + | | [address] [place] [address] | + + + + + | [...] or radiculitis, unspecified | + + | Osteoarthritis of lumbar spine, unspecified spinal osteoarthritis complication status | + + | Facet arthropathy, lumbar (HCC) | + + | Lumbosacral spondylosis without myelopathy | + + | Difficulty walking | + + | Difficulty in walking | + + | DDD (degenerative disc disease), lumbar | + + | Degeneration of lumbar or lumbosacral intervertebral disc | + + | Decreased range of motion of hip | + + | 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
--- OUTSIDE RECORDS SUMMARY | ~2018-01-15 | XMS | Encounter Summary ---
Demographics + + + | Address | [address] | | | [place] [address] | + + + | Home Phone | | + + + | Preferred Language | Unknown | + + + | Marital Status | Single | + + + | Mosque Affiliation | Unknown | + + + | Race | Unknown | + + + | Ethnic Group | Unknown | + + + Author + + + | Author | [facility] [employer] | + + + | Organization | [facility] | + + + | Address | Unknown | + + + | Phone | Unavailable | + + + Support + + +---------+ + | Name | Relationship | Address | Phone | + + +---------+ + | Kristel Teresa | ECON | Unknown | | + + +---------+ + Care Team Providers + +------+ + | Care Multiple Drum Sander Helper Name | Role | Phone | + +------+ + PCP | Unavailable | + +------+ + Encounter Details +--------+ + + + + | Date | Type | Department | Care Team | Description | +--------+ + + + + | 11/25/ | Telephone | dle | Jailene Orta, | | | 2017 | | [facility] | MEDICAL AFFAIRS SPECIALIST | | | | | [address] | | | | | | [place] | | | | | | [address] | | | | | | [phone] | | | +--------+ + + + [...] [place] | | | | | | [address] | | | | | | | | +--------+---------+ + + + as of this encounter Visit Diagnoses Not on filein this encounter"
--- OUTSIDE RECORDS SUMMARY | ~2018-01-15 | XMS | Encounter Summary ---
Demographics + + + | Address | [address] | | | [place] [address] | + + + | Home Phone | | + + + | Preferred Language | Unknown | + + + | Marital Status | Single | + + + | Sabianist Affiliation | Unknown | + + + | Race | Unknown | + + + | Ethnic Group | Unknown | + + + Author + + + | Author | [facility] | + + + | Organization | [facility] | + + + | Address | Unknown | + + + | Phone | Unavailable | + + + Support + + +---------+ + | Name | Relationship | Address | Phone | + + +---------+ + | Kristel Teresa | ECON | Unknown | | + + +---------+ + Care Team Providers + +------+ + | Care Cotton Picker Operator Name | Role | Phone | [...] Required | Medicine / | Radiculopath | RESIDENCE SUPERVISOR [address] | [address] | | | | Dolorology | y of lumbar | [address] | [address] | | | | | region | [place] [address] | [place], [place] | | | | | Osteoarthrit | [place], [place] | [address] Phone: | | | | | is of lumbar | [address] | [phone] | | | | | spine, | Phone: | Fax: | | | | | unspecified | [phone] | [phone] | | | | | spinal | Fax: | | | | | | osteoarthrit | [phone] | | | | | | is | | | | | | | complication | | | | | | | status | | | | | | | Facet | | | | | | | arthropathy, | | | | | | | lumbar | | | | | | | ([facility]) DDD | | | | | | [...] | | Required | | walking | RESIDENCE SUPERVISOR [address] | [address] | | | | | Decreased | [address] | [place], [place] | | | | | range of | [address] [address] | [address] | | | | | motion of | [place], [place] | Phone: | | | | | hip Hip | [address] | [phone] | | | | | pain, | Phone: | Fax: | | | | | chronic, | [phone] | [phone] | | | | | left | Fax: | | | | | | | [phone] | | + + + + + [...] | | | | | region | [address] | [address] | | | | | | [address] | [place] | | | | | | [address] | [address] | | | | | | Phone: | Phone: | | | | | | [phone] | [phone] | | | | | | Fax: | Fax: | | | | | | [phone] | [phone] | + +--------+ + + + + Encounter Details +--------+---------+ + + + | Date | Type | Department | Care Team | Description | +--------+---------+ + + + | 12/04/ | Office | [facility] | Carmine Frost, | Radiculopathy of | | 2018 | Visit | [facility] | RESIDENCE SUPERVISOR [address] | lumbar region | | | | [address] | [address] SANTA, | (Primary Dx); | | | | [place], [place] | [place] [address] | Osteoarthritis of | | | | [address] | [phone] | lumbar spine, | | | | [phone] | | unspecified spinal | | | [...] Shelby Galdamez is a 57 y.o. female seen [...] pain syndrome Patient underwent lumbar MRI at [facility] on 11/27/2017 with multilevel lumbar DD [...] tobacco use 1/2 ppd. Patient lives in [facility]. She is on disability and unemployed. She [...] I will refe r patient to see [facility] hip specialist Dr. Marquis for further [...] 4. Referral placed for Physical Therapy at [place] to work on lumbar core strengthening and [...] steroid injection due to her insurance with [employer] from [place]. Instructed patient if any progressive neurologic symptoms [...] time spent 25 minutes was spent with [id number] counseling discussing treatment op tions, reviewing MRI, symptom review, physical examination, and education, over half of that time was spent counseling and coordination of care. Syed Frost has created this entry using [employer] Voice Recognition software and [employer] macros. The entry has been reviewed and [...] [place] | | | | | | [address] | | | | | | | [...] Laboratory | + + + | | [address] [place] [address] | + + + + + | [...]
--- OUTSIDE RECORDS SUMMARY | ~2018-01-15 | XMS | Encounter Summary ---
Demographics + + + | Address | [address] | | | [place] [address] | + + + | Home Phone | | + + + | Preferred Language | Unknown | + + + | Marital Status | Single | + + + | Mormon Affiliation | Unknown | + + + | Race | Unknown | + + + | Ethnic Group | Unknown | + + + Author + + + | Author | [facility] [employer] [employer] [facility] | + + + | Organization | [facility] | + + + | Address | Unknown | + + + | Phone | Unavailable | + + + Support + + +---------+ + | Name | Relationship | Address | Phone | + + +---------+ + | Kristel Teresa | ECON | Unknown | | + + +---------+ + Care Team Providers + +------+ + | Care Plumber'S Helper Name | Role | Phone | [...] + + | 12/04/ | Ancillary | [facility] | See, Medical | Pain | | 2018 | [facility] | [facility] MRI | Record | | | | | [address] | | | | | | [place] [address] | | | | | | [phone] | | | +--------+ + + + [...] | | | | | [place] | | | | | | [address] | | | | | | | | +--------+---------+ + + + as of this encounter Results MRI lumbar spine without contrast (11/27/2017 11:11 PM) + + + | Specimen | Performing Laboratory | + + + | | [facility] [address] [facility] [place] [address] | + + + + + | Narrative | + + | This is a non-reportable procedure without a radiologist report and is used for | | image storage only | + + in this encounter Visit Diagnoses + + | Diagnosis | + + | Pain | + + | Generalized pain | + +"
--- OUTSIDE RECORDS SUMMARY | ~2018-01-15 | XMS | Clinical Summary ---
Demographics + + + | Address | [address] | | | [place] [address] | + + + | Home Phone | | + + + | Preferred Language | Unknown | + + + | Marital Status | Single | + + + | Quaker Affiliation | Unknown | + + + | Race | Unknown | + + + | Ethnic Group | Unknown | + + + Author + + + | Author | [facility] [employer] [facility] | + + + | Organization | [facility] | + + + | Address | Unknown | + + + | Phone | Unavailable | + + + Support + + +---------+ + | Name | Relationship | Address | Phone | + + +---------+ + | Kristel Teresa | ECON | Unknown | | + + +---------+ + Care Team Providers + +------+ + | Care Size Maker Name | Role | Phone | [...] | | 2018 | Visit | | FIRE SPRINKLER DESIGNER | lumbar region | | | | [...] | | | 2017 | | | COMPRESSOR HOUSE OPERATOR | | +--------+ + + + + | 12/16/ | Telephone | | Casi Marcus, | | | 2017 | | | COMPRESSOR HOUSE OPERATOR | | +--------+ + + + + | 12/09/ | Telephone | | Jailene Orta, | | | 2017 | | | CONSTRUCTION ESTIMATOR | | +--------+ + + + + | 12/04/ | Hospital | | See, Medical | Pain | | 2018 | Encounter | | Record | | +--------+ + + + + | 12/04/ | Hospital | | Carmine Frost, | Decreased range of | | 2017 | Encounter | | FIRE SPRINKLER DESIGNER | motion of hip; Hip | | | | | | pain, chronic, left | +--------+ + + + + | 12/04/ | Office | | Carmine Frost, | Radiculopathy of | | 2018 | Visit | | FIRE SPRINKLER DESIGNER | lumbar region | | | | [...] | | | 2017 | | | MCIHAEL | | +--------+ + + + + | 11/25/ | Telephone | | Rdaha Reynoso CMA | | | 2017 | | | | | +--------+ + + + + | 11/25/ | Telephone | | Jailene Orta, | | | 2017 | | | CONSTRUCTION ESTIMATOR | | +--------+ + + + + | 11/25/ | Orders Only | | Carmine Frost, | | | 2017 | | | FIRE SPRINKLER DESIGNER | | +--------+ + + + + | 10/25/ | Telephone | | Jailene Orta, | | | 2017 | | | CONSTRUCTION ESTIMATOR | | +--------+ + + + + | 10/23/ | Telephone | | Jailene Orta, | | | 2017 | | | CONSTRUCTION ESTIMATOR | | +--------+ + + + + [...] [place] | | | | | | [address] | | | | | | | [...] Laboratory | + + + | | [place] [address] [place] [address] | + + + + + | [...] Laboratory | + + + | | [facility] [address] [place] [address] | + + + + + | [...] | | [place] | | | | [address] | | | SOUND TESTER | | | | | + +--------+ [...] Self [birth year] Home: | [address] | | | al/Fam | | 1960 | [phone] | [place] | | | gigi | | | [birth year]17 | [address] | + +--------+ +--------+ + +
--- OUTSIDE RECORDS SUMMARY | ~2018-01-15 | XMS | Encounter Summary ---
Demographics + + + | Address | [address] | | | [place] [address] | + + + | Home Phone | | + + + | Preferred Language | Unknown | + + + | Marital Status | Single | + + + | Worship Affiliation | Unknown | + + + | Race | Unknown | + + + | Ethnic Group | Unknown | + + + Author + + + | Author | [facility] [employer] | + + + | Organization | [facility] | + + + | Address | Unknown | + + + | Phone | Unavailable | + + + Support + + +---------+ + | Name | Relationship | Address | Phone | + + +---------+ + | Kristel Teresa | ECON | Unknown | | + + +---------+ + Care Team Providers + +------+ + | Care Health Navigator Name | Role | Phone | + +------+ + PCP | Unavailable | + +------+ + Encounter Details +--------+ + + + + | Date | Type | Department | Care Team | Description | +--------+ + + + + | 11/25/ | Telephone | dle | Jailene Orta, | | | 2017 | | [facility] | VASCULAR TECHNOLOGIST | | | | | [address] | | | | | | [place] | | | | | | [address] | | | | | | [phone] | | | +--------+ + + + [...] [place] | | | | | | [address] | | | | | | | | +--------+---------+ + + + as of this encounter Visit Diagnoses Not on filein this encounter"
--- OUTSIDE RECORDS SUMMARY | ~2018-01-15 | XMS | Encounter Summary ---
Demographics + + + | Address | [address] | | | [place] [address] | + + + | Home Phone | | + + + | Preferred Language | Unknown | + + + | Marital Status | Single | + + + | Alevism Affiliation | Unknown | + + + | Race | Unknown | + + + | Ethnic Group | Unknown | + + + Author + + + | Author | [facility] [employer] [facility] | + + + | Organization | [facility] | + + + | Address | Unknown | + + + | Phone | Unavailable | + + + Support + + +---------+ + | Name | Relationship | Address | Phone | + + +---------+ + | Kristel Teresa | ECON | Unknown | | + + +---------+ + Care Team Providers + +------+ + | Care Oil Field Operator Name | Role | Phone | + +------+ + | Jaimie Monreal MD | PCP | | + +------+ + Encounter Details +--------+ + + + + | Date | Type | Department | Care Team | Description | +--------+ + + + + | 12/04/ | Hospital | [facility] | Carmine Frost, | Decreased range of | | 2018 | Encounter | [facility] | GENERAL FARMWORKER [address] | motion of hip; Hip | | | | Xray [address] | [address], | pain, chronic, left | | | | Dr[address] | [place] [address] | | | | | [place] [address] | [phone] | | | | | [phone] | | | +--------+ + + + [...] [place] | | | | | | [address] | | | | | | | | +--------+---------+ + + + as of this encounter Results X-ray hips bilateral (12/04/2017 2:31 PM) + + + | Specimen | Performing Laboratory | + + + | | [place] [address] | + + + + + | [...]
--- OUTSIDE RECORDS SUMMARY | ~2018-01-15 | XMS | Encounter Summary ---
Demographics + + + | Address | [address] | | | [place] [address] | + + + | Home Phone | | + + + | Preferred Language | Unknown | + + + | Marital Status | Single | + + + | Spiritism Affiliation | Unknown | + + + | Race | Unknown | + + + | Ethnic Group | Unknown | + + + Author + + + | Author | Dinesh [facility] | + + + | Organization | [facility] [employer] | + + + | Address | Unknown | + + + | Phone | Unavailable | + + + Support + + +---------+ + | Name | Relationship | Address | Phone | + + +---------+ + | Kristel Teresa | ECON | Unknown | | + + +---------+ + Care Team Providers + +------+ + | Care Vinyl Cutter Name | Role | Phone | + +------+ + PCP | Unavailable | + +------+ + Encounter Details +--------+ + + + + | Date | Type | Department | Care Team | Description | +--------+ + + + + | 10/18/ | Hospital | [facility] | See, Medical | Pain | | 2018 | Encounter | [facility] | Record | | | | | RADIOLOGY [address] | | | | | | [address] | | | | | | [place] [address] | | | | | | [phone] | | | +--------+ + + + [...] | 01/20/ | Office | Dolorology | Xiagn Sepulveda, | | | 2017 | Visit | | [address] | | | | | | [place] | | | | | | [address] | | | | | | | | +--------+---------+ + + + as of this encounter Results X-ray lumbar spine 4-5 views (10/14/2017 1:36 AM) + + + | Specimen | Performing Laboratory | + + + | | [place] [address] | + + + + + | Narrative | + + | This is a non-reportable procedure without a radiologist report and is used for | | image storage only | + + in this encounter Visit Diagnoses + + | Diagnosis | + + | Pain | + + | Generalized pain | + +"
--- OUTSIDE RECORDS SUMMARY | ~2018-01-15 | XMS | Encounter Summary ---
Demographics + + + | Address | [address] | | | [place] [address] | + + + | Home Phone | | + + + | Preferred Language | Unknown | + + + | Marital Status | Single | + + + | Muslim Affiliation | Unknown | + + + | Race | Unknown | + + + | Ethnic Group | Unknown | + + + Author + + + | Author | [facility] [employer] | + + + | Organization | [facility] [employer] [facility] | + + + | Address | Unknown | + + + | Phone | Unavailable | + + + Support + + +---------+ + | Name | Relationship | Address | Phone | + + +---------+ + | Kristel Teresa | ECON | Unknown | | + + +---------+ + Care Team Providers + +------+ + | Care Plate Straightener Name | Role | Phone | + +------+ + | Jaimie Monreal MD | PCP | | + +------+ + Encounter Details +--------+ + + + + | Date | Type | Department | Care Team | Description | +--------+ + + + + | 12/27/ | Telephone | [facility] | Xiang Sepulveda, | | | 2017 | | Neuroscience Center | DO [address] | | | | | [address] | [place] [facility] [place] | | | | | [place] | [address] | | | | | [address] | | | | | | [phone] | | | +--------+ + + + [...] [place] | | | | | | [address] | | | | | | | | +--------+---------+ + + + as of this encounter Visit Diagnoses Not on filein this encounter"
--- OUTSIDE RECORDS SUMMARY | ~2018-01-15 | XMS | Encounter Summary ---
Demographics + + + | Address | [address] | | | [place] [address] | + + + | Home Phone | | + + + | Preferred Language | Unknown | + + + | Marital Status | Single | + + + | Jain Affiliation | Unknown | + + + | Race | Unknown | + + + | Ethnic Group | Unknown | + + + Author + + + | Author | [facility] [employer] [facility] | + + + | Organization | [facility] [employer] [facility] | + + + | Address | Unknown | + + + | Phone | Unavailable | + + + Support + + +---------+ + | Name | Relationship | Address | Phone | + + +---------+ + | Kristel Teresa | ECON | Unknown | | + + +---------+ + Care Team Providers + +------+ + | Care City Auditor Name | Role | Phone | [...] | | Neurosurgery | Diagnoses | | [facility] | | | | | | [address] | Neurosurgery | | | | | Radiculopath | , [place], | [address] | | | | | y, lumbar | DO [address] | [address] [place] | | | | | region | [address] | [place] | | | | | | [place] | [place], [place] | | | | | | [address] | [address] | | | | | | Phone: | Phone: | | | | | | [phone] | [phone] | | | | | | Fax: | Fax: | | | | | | [phone] | [phone] | + +--------+ + + + + Encounter Details +--------+---------+ + + + | Date | Type | Department | Care Team | Description | +--------+---------+ + + + | 01/08/ | Office | [facility] | Carmine Frost, | Radiculopathy of | | 2018 | Visit | Neuroscience Center | DRYERMAN/WOMAN [address] | lumbar region | | | | [address] | [place], | (Primary Dx); | | | | [place] | [place] [address] | Difficulty walking; | | | | [address] | [phone] | DDD (degenerative | | | | [phone] | | disc disease), | | | | | | lumbar; Facet | | | | | | arthropathy, lumbar | | | | | | ([facility]); | | | | | | Osteoarthritis [...] and use wheel chair while visiting the [facility] in. Vision have not seen Dr. [...] pain syndrome Patient underwent lumbar MRI at [facility] on 11/27/2017 with multilevel lumbar DD [...] tobacco use 1/2 ppd. Patient lives in [facility]. She is on disability and unemployed. [...] I will refe r patient to see [facility] hip specialist Dr. Marquis for further [...] to continue work with Physical Therapy at [place] to work on lumbar core strengthening and conditioning, and gentle range of motion for 4-6 weeks. Patient will continue follow-up with her primary care for oral pain management. Patient is continue taking Percocet 5/325 mg 3-4 tablets daily. She is stop taking gabapentin due to hallucinati on and drowsiness. She is not eligible for lumbar epidural steroid injection with [facility] pro viders due to her insurance with [employer] from [place]. She also can get lumbar epidural steroid injection or median branch block at pain management in [place] [facility]. Remind pt to contact her PCP to get referral to intervention pain management in [place]. Instructed patient if any progressive neurologic symptoms [...] time spent 25 minutes was spent with [id number] counseling discussing treatment op tions, reviewing MRI, symptom review, physical examination, and education, over half of that time was spent counseling and coordination of care. Syed Frost has created this entry using [employer] Voice Recognition software and Smart [employer] macros. The entry has been reviewed and [...] | | | | | [place] | | | | | | [id number] [...]
--- OUTSIDE RECORDS SUMMARY | ~2018-01-15 | XMS | Encounter Summary ---
Demographics + + + | Address | [address] | | | [place] [address] | + + + | Home Phone [...] + + + | Author | [facility] [employer] | + + + | Organization | [facility] [employer] [facility] | + + + | Address | Unknown | + + + | Phone | Unavailable | + + + Support + + +---------+ + | Name | Relationship | Address | Phone | + + +---------+ + | Kristel Teresa | ECON | Unknown | | + + +---------+ + Care Team Providers + +------+ + | Care Equity Trader Name | Role | Phone | + +------+ + | Jaimie Monreal MD | PCP | | + +------+ + Encounter Details +--------+ + + + + | Date | Type | Department | Care Team | Description | +--------+ + + + + | 12/16/ | Telephone | [facility] | Casi Marcus, | | | 2017 | | Neuroscience [place] | FLOOR PLAN ADJUSTER | | | | | [address] | | | | | | [place] | | | | | | [address] | | | | | | [phone] | | | +--------+ + + + [...] | | | | | | [facility] | | | | | | [address] | | | | | | | | +--------+---------+ + + + as of this encounter Visit Diagnoses Not on filein this encounter"
--- OUTSIDE RECORDS SUMMARY | ~2018-01-15 | XMS | Encounter Summary ---
Demographics + + + | Address | [address] | | | [place] [address] | + + + | Home Phone [...] + + + | Author | [facility] [employer] | + + + | Organization | [facility] [employer] [facility] | + + + | Address | Unknown | + + + | Phone | Unavailable | + + + Support + + +---------+ + | Name | Relationship | Address | Phone | + + +---------+ + | Kristel Teresa | ECON | Unknown | | + + +---------+ + Care Team Providers + +------+ + | Care Stations Superintendent Name | Role | Phone | + +------+ + PCP | Unavailable | + +------+ + Encounter Details +--------+ + + + + | Date | Type | Department | Care Team | Description | +--------+ + + + + | 11/25/ | Telephone | [facility] | Radha Reynoso CMA | | | 2018 | | Neuroscience [place] | | | | | | [address] | | | | | | [place] | | | | | | [address] | | | | | | [phone] | | | +--------+ + + + [...] [place] | | | | | | [address] | | | | | | | | +--------+---------+ + + + as of this encounter Visit Diagnoses Not on filein this encounter"
--- OUTSIDE RECORDS SUMMARY | ~2018-01-15 | XMS | Encounter Summary ---
Demographics + + + | Address | [address] | | | [place] [address] | + + + | Home Phone [...] + + + | Author | [facility] [employer] | + + + | Organization | [facility] [employer] | + + + | Address | Unknown | + + + | Phone | Unavailable | + + + Support + + +---------+ + | Name | Relationship | Address | Phone | + + +---------+ + | Kristel Teresa | ECON | Unknown | | + + +---------+ + Care Team Providers + +------+ + | Care Final Expense Agent Name | Role | Phone | + +------+ + | Jaimie Monreal MD | PCP | | + +------+ + Encounter Details +--------+ + + + + | Date | Type | Department | Care Team | Description | +--------+ + + + + | 10/18/ | Ancillary | [facility] | See, Medical | Pain | | 2018 | Orders | [facility] Xray | Record | | | | | [address] | | | | | | [place] [address] | | | | | | [phone] | | | +--------+ + + + [...] [place] | | | | | | [address] | | | | | | | | +--------+---------+ + + + as of this encounter Results X-ray lumbar spine 4-5 views (10/14/2017 1:36 AM) + + + | Specimen | Performing Laboratory | + + + | | [place] [place] [address] | + + + + + | Narrative | + + | This is a non-reportable procedure without a radiologist report and is used for | | image storage only | + + in this encounter Visit Diagnoses + + | Diagnosis | + + | Pain | + + | Generalized pain | + +"
--- OUTSIDE RECORDS SUMMARY | ~2018-01-15 | XMS | Encounter Summary ---
Demographics + + + | Address | [address] | | | [place] [address] | + + + | Home Phone [...] + + + | Author | [facility] [employer] | + + + | Organization | [facility] [employer] [facility] | + + + | Address | Unknown | + + + | Phone | Unavailable | + + + Support + + +---------+ + | Name | Relationship | Address | Phone | + + +---------+ + | Kristel Teresa | ECON | Unknown | | + + +---------+ + Care Team Providers + +------+ + | Care Edger Feeder Name | Role | Phone | + +------+ + PCP | Unavailable | + +------+ + Encounter Details +--------+ + + + + | Date | Type | Department | Care Team | Description | +--------+ + + + + | 10/23/ | Telephone | [facility] | Jailene Orta, | | | 2017 | | Neuroscience Center | [address] | | | | | [address] | | | | | | [place] | | | | | | [address] | | | | | | [phone] | | | +--------+ + + + [...] [place] | | | | | | [address] | | | | | | | | +--------+---------+ + + + as of this encounter Visit Diagnoses Not on filein this encounter"
--- OUTSIDE RECORDS SUMMARY | ~2018-01-15 | XMS | Encounter Summary ---
Demographics + + + | Address | [address] | | | [place] [address] | + + + | Home Phone [...] + + + | Author | [facility] [employer] | + + + | Organization | [facility] [employer] | + + + | Address | Unknown | + + + | Phone | Unavailable | + + + Support + + +---------+ + | Name | Relationship | Address | Phone | + + +---------+ + | Kristel Teresa | ECON | Unknown | | + + +---------+ + Care Team Providers + +------+ + | Care Quality Process Engineer Name | Role | Phone | + +------+ + | Jaimie Monreal MD | PCP | | + +------+ + Encounter Details +--------+ + + + + | Date | Type | Department | Care Team | Description | +--------+ + + + + | 12/27/ | Telephone | [facility] | Xiang Sepulveda, | | | 2017 | | Neuroscience Center | DO [address] | | | | | [address] | [place] [facility] [place] [place] | | | | | [place] | [address] | | | | | [address] | | | | | | [phone] | | | +--------+ + + + [...] [place] | | | | | | [address] | | | | | | | | +--------+---------+ + + + as of this encounter Visit Diagnoses Not on filein this encounter"
--- OUTSIDE RECORDS SUMMARY | ~2018-01-15 | XMS | Encounter Summary ---
Demographics + + + | Address | [address] | | | [place] [address] | + + + | Home Phone | | + + + | Preferred Language | Unknown | + + + | Marital Status | Single | + + + | Restoration Affiliation | Unknown | + + + | Race | Unknown | + + + | Ethnic Group | Unknown | + + + Author + + + | Author | [facility] [employer] | + + + | Organization | [facility] [employer] [facility] | + + + | Address | Unknown | + + + | Phone | Unavailable | + + + Support + + +---------+ + | Name | Relationship | Address | Phone | + + +---------+ + | Kristel Teresa | ECON | Unknown | | + + +---------+ + Care Team Providers + +------+ + | Care Information Security Risk Analyst Name | Role | Phone | + +------+ + | Jaimie Monreal MD | PCP | | + +------+ + Encounter Details +--------+ + + + + | Date | Type | Department | Care Team | Description | +--------+ + + + + | 12/16/ | Telephone | [facility] | Casi Marcus, | | | 2017 | | Neuroscience [place] | OPERATIONAL INTELLIGENCE OFFICER | | | | | [address] | | | | | | [place] | | | | | | [address] | | | | | | [phone] | | | +--------+ + + + [...] | | | | | | [place] [facility] | | | | | | [address] | | | | | | | | +--------+---------+ + + + as of this encounter Visit Diagnoses Not on filein this encounter"
--- OUTSIDE RECORDS SUMMARY | ~2018-01-15 | XMS | Encounter Summary ---
Demographics + + + | Address | [address] | | | [place] [address] | + + + | Home Phone [...] + + + | Author | [facility] [employer] | + + + | Organization | [facility] [employer] [facility] | + + + | Address | Unknown | + + + | Phone | Unavailable | + + + Support + + +---------+ + | Name | Relationship | Address | Phone | + + +---------+ + | Kristel Teresa | ECON | Unknown | | + + +---------+ + Care Team Providers + +------+ + | Care Chip Bin Operator Name | Role | Phone | + +------+ + | Jaimie Monreal MD | PCP | | + +------+ + Encounter Details +--------+ + + + + | Date | Type | Department | Care Team | Description | +--------+ + + + + | 12/04/ | Procedure | [facility] | | | | 2018 | Pass | [facility] | | | | | | RADIOLOGY [address] | | | | | | [address] | | | | | | [place] [address] | | | | | | [phone] | | | +--------+ + + + [...] [place] | | | | | | [address] | | | | | | | | +--------+---------+ + + + as of this encounter Visit Diagnoses Not on filein this encounter"
--- OUTSIDE RECORDS SUMMARY | ~2018-01-15 | XMS | Encounter Summary ---
Demographics + + + | Address | [address] | | | [place] [address] | + + + | Home Phone | | + + + | Preferred Language | Unknown | + + + | Marital Status | Single | + + + | Anglican Affiliation | Unknown | + + + | Race | Unknown | + + + | Ethnic Group | Unknown | + + + Author + + + | Author | [facility] [employer] | + + + | Organization | [facility] [employer] [facility] | + + + | Address | Unknown | + + + | Phone | Unavailable | + + + Support + + +---------+ + | Name | Relationship | Address | Phone | + + +---------+ + | Kristel Teresa | ECON | Unknown | | + + +---------+ + Care Team Providers + +------+ + | Care Crystal Lapper Name | Role | Phone | + +------+ + | Jaimie Monreal MD | PCP | | + +------+ + Encounter Details +--------+ + + + + | Date | Type | Department | Care Team | Description | +--------+ + + + + | 12/25/ | Telephone | [facility] | Antonella Sprague, | | | 2017 | | Neuroscience [place] | TIMBER APPRAISER | | | | | [address] | | | | | | [place] | | | | | | [address] | | | | | | [phone] | | | +--------+ + + + [...] | | | | | [place] [facility] | | | | | | [address] | | | | | | | | +--------+---------+ + + + as of this encounter Visit Diagnoses Not on filein this encounter"
--- OUTSIDE RECORDS SUMMARY | ~2018-01-15 | XMS | Encounter Summary ---
Demographics + + + | Address | [address] | | | [place] [address] | + + + | Home Phone [...] + + + | Author | [facility] [employer] | + + + | Organization | [facility] [employer] | + + + | Address | Unknown | + + + | Phone | Unavailable | + + + Support + + +---------+ + | Name | Relationship | Address | Phone | + + +---------+ + | Kristel Teresa | ECON | Unknown | | + + +---------+ + Care Team Providers + +------+ + | Care Opticianry Teacher Name | Role | Phone | + +------+ + | Jaimie Monreal MD | PCP | | + +------+ + Encounter Details +--------+ + + + + | Date | Type | Department | Care Team | Description | +--------+ + + + + | 12/09/ | Telephone | [facility] | Jailene Orta, | | | 2018 | | Neuroscience [place] | PHYSICIAN REPRESENTATIVE | | | | | [address] | | | | | | [place] | | | | | | [address] | | | | | | [phone] | | | +--------+ + + + [...] [place] | | | | | | [address] | | | | | | | [...]
[~2018-01-15 05:30] MED LIST changes: +PHENERGAN50 MG PR
[2018-01-15] MEDS ORDERED: KEFLEX500 MG PO (07:05)
[2018-01-15] MEDS ORDERED: PYRIDIUM200 MG PO (07:05)
== END 2018-01-15 07:28 | disposition home or self-care (01) ==
LOC: ED 05:30
DX: K52.9 Noninfective gastroenteritis and colitis, unspecified (principal); N39.0 Urinary tract infection, site not specified; F15.10 Other stimulant abuse, uncomplicated; G89.29 Other chronic pain; F32.9 Major depressive disorder, single episode, unspecified; I10 Essential (primary) hypertension; J44.9 Chronic obstructive pulmonary disease, unspecified; F17.200 Nicotine dependence, unspecified, uncomplicated; Z88.1 Allergy status to other antibiotic agents; Z88.5 Allergy status to narcotic agent; Z88.8 Allergy status to other drugs, medicaments and biological substances; Z79.899 Other long term (current) drug therapy
CPT/HCPCS: 80053; 81001; 83690; 85025; 87077; 87088; 87186; 96374; 99283; J2405; J7030

== ENCOUNTER 2018-06-22 14:40 | Emergency (ER) | payer OTHER ==
[~2018-06-22] VITALS: Ht 162.6 cm; Wt 139.7 kg
--- OUTSIDE RECORDS SUMMARY | ~2018-06-22 | XMS | Encounter Summary ---
Demographics + + + | Address | [address] | | | [place] [address] | + + + | Home Phone | | + + + | Preferred Language | Unknown | + + + | Marital Status | Single | + + + | Confucianism Affiliation | Unknown | + + + | Race | Unknown | + + + | Ethnic Group | Unknown | + + + Author + + + | Author | [facility] [employer] | + + + | Organization | [facility] [facility] | + + + | Address | Unknown | + + + | Phone | Unavailable | + + + Support + + +---------+ + | Name | Relationship | Address | Phone | + + +---------+ + | Kristel Teresa | ECON | Unknown | | + + +---------+ + Care Team Providers + +------+ + | Care Soft Tile Setter Name | Role | Phone | + +------+ + | Jaimie Monreal MD | PCP | | + +------+ + Encounter Details +--------+ + + + + | Date | Type | Department | Care Team | Description | +--------+ + + + + | 04/03/ | Telephone | [facility] | Lor Trujillo, ACCOUNTING CLERK | | | 2017 | | ORTHO [facility]ORTS | | | | | | MEDICINE [place] | | | | | | PAIN [address] | | | | | | [place] | | | | | | [address] | | | | | | [phone] | | | +--------+ + + + + Social History + +-------+ +--------+ + | Tobacco Use | Types | Packs/Day | Years | Date | | | | | Used | | + +-------+ +--------+ + | Former Smoker | | | | Quit: 12/12/2017 | + +-------+ +--------+ + + +---+---+---+ [...] Description | +--------+---------+ + + + | 07/14/ | Office | Dolorology | Xiang Sepulveda, | | | 2017 | Visit | | [address] | | | | | | [place] | | | | | | [address] | | | | | | | | +--------+---------+ + + + as of this encounter Visit Diagnoses Not on filein this encounter"
--- OUTSIDE RECORDS SUMMARY | ~2018-06-22 | XMS | Encounter Summary ---
Demographics + + + | Address | [address] | | | [place] [address] | + + + | Home Phone | | + + + | Preferred Language | Unknown | + + + | Marital Status | Single | + + + | Denominational Affiliation | Unknown | + + + | Race | Unknown | + + + | Ethnic Group | Unknown | + + + Author + + + | Author | [facility] [employer] | + + + | Organization | [facility] | + + + | Address | Unknown | + + + | Phone | Unavailable | + + + Support + + +---------+ + | Name | Relationship | Address | Phone | + + +---------+ + | Kristel Teresa | ECON | Unknown | | + + +---------+ + Care Team Providers + +------+ + | Care Stem Crusher Name | Role | Phone | + [...] + + | 04/01/ | Telephone | [facility] | Lor Trujillo, PIE BOTTOMER | Other (cancel | | 2018 | | [facility]TH[facility]TS | | injection ) | | | | MEDICINE [place] | | | | | | PAIN [address] | | | | | | [place] | | | | | | [address] | | | | | | [phone] | | | +--------+ + + + [...] [place] | | | | | | [address] | | | | | | | | +--------+---------+ + + + as of this encounter Visit Diagnoses Not on filein this encounter"
--- OUTSIDE RECORDS SUMMARY | ~2018-06-22 | XMS | Clinical Summary ---
Demographics + + + | Address | [address] | | | [place] [address] | + + + | Home Phone [...] Team Providers + +------+ + | Care Music Journalist Name | Role | Phone | + +------+ + | Travis Mcginnis MD | PP | Unavailable | + +------+ + Source Comments LION is fully live on both [facility] and [facility] InPatient.[facility] Allergies + + + + + [...] | | + + + +---------+------+------+-------+ | [place]-3 Fatty | Take by mouth. | | [...]
--- OUTSIDE RECORDS SUMMARY | ~2018-06-22 | XMS | Encounter Summary ---
Demographics + + + | Address | [address] | | | [place] [address] | + + + | Home Phone | | + + + | Preferred Language | Unknown | + + + | Marital Status | Single | + + + | Yarsani Affiliation | Unknown | + + + | Race | Unknown | + + + | Ethnic Group | Unknown | + + + Author + + + | Author | [facility] [employer] | + + + | Organization | [facility] | + + + | Address | Unknown | + + + | Phone | Unavailable | + + + Support + + +---------+ + | Name | Relationship | Address | Phone | + + +---------+ + | Kristel Teresa | ECON | Unknown | | + + +---------+ + Care Team Providers + +------+ + | Care Assembly Adjuster Name | Role | Phone | [...] Required | Medicine / | Radiculopath | GRANT MANAGER [address] | [address] | | | | Dolorology | y of lumbar | [address]AC[address] | DR [address] | | | | | region | [place] | [place], [place] | | | | | Osteoarthrit | [place], [place] | [address] Phone: | | | | | is of lumbar | [address] | [phone] | | | | | spine, | Phone: | Fax: | | | | | unspecified | [phone] | [phone] | | | | | spinal | Fax: | | | | | | osteoarthrit | [phone] | | | | | | is [...] + + | 05/14/ | Office | [facility] | Xiang Sepulveda, | Radiculopathy of | | 2018 | Visit | [facility] | DO [address] | lumbar region | | | | [address] | [place] | (Primary Dx); Facet | | | | [place] | [address] | arthropathy, lumbar | | | | [address] | | ([facility]); | | | | [phone] | | Osteoarthritis of | | | [...] Will return to office in 4 weeks, [facility] was consulted and appears appropriate, [...] are noted in men and women. Ma pr men will suffer erectile dysfunction with these [...] and complications with the passage of time. halfway use is also associated with depressions, and [...] | | | | | [place] | | | | | | [id number] | | | | | | | [...]
--- OUTSIDE RECORDS SUMMARY | ~2018-06-22 | XMS | Clinical Summary ---
Demographics + + + | Address | [address] | | | [place] [address] | + + + | Home Phone [...] Team Providers + +------+ + | Care Metallurgical Engineering Technician Name | Role | Phone | + +------+ + | Travis Mcginnis MD | PP | Unavailable | + +------+ + Source Comments [facility] and [facility] Allergies + + + [...] | | + + + +---------+------+------+-------+ | [place]-3 Fatty | Take by mouth. | | [...]
--- OUTSIDE RECORDS SUMMARY | ~2018-06-22 | XMS | Encounter Summary ---
Demographics + + + | Address | [address] | | | [place] [address] | + + + | Home Phone | | + + + | Preferred Language | Unknown | + + + | Marital Status | Single | + + + | Voodoo Affiliation | Unknown | + + + | Race | Unknown | + + + | Ethnic Group | Unknown | + + + Author + + + | Author | [facility] [employer] | + + + | Organization | [facility] | + + + | Address | Unknown | + + + | Phone | Unavailable | + + + Support + + +---------+ + | Name | Relationship | Address | Phone | + + +---------+ + | Kristel Teresa | ECON | Unknown | | + + +---------+ + Care Team Providers + +------+ + | Care Director Of Assisted Living Name | Role | Phone | + [...] Required | Medicine / | Radiculopath | SPINDRAW OPERATOR [address] | [address] | | | | Dolorology | y of lumbar | [address] | [address] | | | | | region | [place] | [place] | | | | | Osteoarthrit | [place], [place] | [address] Phone: | | | | | is of lumbar | [address] | [phone] | | | | | spine, | Phone: | Fax: | | | | | unspecified | [phone] | [phone] | | | | | spinal | Fax: | | | | | | osteoarthrit | [phone] | | | | | | is [...] + + | 04/16/ | Office | [facility] | Xiang Sepulveda, | Radiculopathy of | | 2018 | Visit | [facility] | DO [address] | lumbar region | | | | [address] | [place] | (Primary Dx); Facet | | | | [place] | [address] | arthropathy, lumbar | | | | [address] | | (HCC); | | | | [phone] | | Osteoarthritis of | | | [...] 4/5 DTR BUE's 2/ : BLE,s KJ 2/ , AJ 10/03 , Negative clonus Negative [...] Will return to office in 4 weeks, [facility] was consulted and appears appropriate, Urine Toxicology [...] are noted in men and women. Ma nm men will suffer erectile dysfunction with these [...] and complications with the passage of time. terminal manager use is also associated with depressions, and [...] | | | | | [place], [place] | | | | | | [address] | | | | | | | [...]
--- OUTSIDE RECORDS SUMMARY | ~2018-06-22 | XMS | Encounter Summary ---
Demographics + + + | Address | [address] | | | [place] [address] | + + + | Home Phone | | + + + | Preferred Language | Unknown | + + + | Marital Status | Single | + + + | Presybeterian Affiliation | Unknown | + + + | Race | Unknown | + + + | Ethnic Group | Unknown | + + + Author + + + | Author | [facility] [employer] | + + + | Organization | [facility] | + + + | Address | Unknown | + + + | Phone | Unavailable | + + + Support + + +---------+ + | Name | Relationship | Address | Phone | + + +---------+ + | Kristel Teresa | ECON | Unknown | | + + +---------+ + Care Team Providers + +------+ + | Care Oracle Technical Developer Name | Role | Phone | [...] Required | Medicine / | Radiculopath | AIRCRAFT 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 OUT 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 [address] | [address] | | | | Dolorology | y of lumbar | [address] | DR [address] | | | | | region | [place] | [place] | | | | | Osteoarthrit | [place], [place] | [address] Phone: | | | | | is of lumbar | [address] | [phone] | | | | | spine, | Phone: | Fax: | | | | | unspecified | [phone] | [phone] | | | | | spinal | Fax: | | | | | | osteoarthrit | [phone] | | | | | | is [...] + + | 06/12/ | Office | [facility] | Xiang Sepulveda, | Radiculopathy of | | 2018 | Visit | [facility] | DO [address] | lumbar region | | | | [address] | [place] | (Primary Dx); Facet | | | | [place] | [address] | arthropathy, lumbar | | | | [address] | | (HCC); | | | | [phone] | | Osteoarthritis of | | | [...] Will return to office in 4 weeks, [facility] was consulted and appears appropriate, Urine [...] complications with the passage of time. terminal carman use is also associated with depressions, and [...] | | | | | [place], [place] | | | | | | [address] | | | | | | | [...]
--- OUTSIDE RECORDS SUMMARY | ~2018-06-22 | XMS | Clinical Summary ---
Demographics + + + | Address | [address] | | | [address] | | | [place] [address] | + + + | Home Phone | | + + + | Preferred Language | Unknown | + + + | Marital Status | | + + + | Moravian Affiliation | 1076 | + + + | Race | Unknown | + + + | Ethnic Group | Unknown | + + + Author + + + | Author | [facility] | | | and Sumitana | + + + | Organization | [facility] | | [...] [place] | | | | | [address] | | + + + + + | Casandra Smith | ECON | [address] | | | | | [place] | | + + + + + Care Team Providers + +------+ + | Care Developer Programmer Name | Role | Phone | [...] obesity with BMI of 50.0-59.9, adult ([facility]) | 11/25/2016 | + + + | ABDOMINAL PAIN-GENERALIZED | 03/06/2012 | + + + | Obstructive sleep apnea | 06/21/2011 | + + + | Disorder of function of stomach | 10/26/2008 | + + + + + | Overview: Overview: N/V and abdominal pain. Seen Hood Sommer | | [facility] Colonoscopy 11/02/08diverticulosis sigmoid and | | [...] | YAMILA DRISCOLL | | 08/15/ | [id number] | | - [id number]: Qty: 1 | | | INCORPORATE | | 2018 | / | | on 11/25/2016 by Rustam Schmid | | Ureter | D | | | /[id number] | | GMD | | | | [...] | [employer] | [employer] | [id number] | Medica | [phone] | | | [...] al/Fam | | 9 | [phone] | [address] [place], | | | gigi | | | [phone] | [place] [phone] | + +--------+ +--------+ + +
--- OUTSIDE RECORDS SUMMARY | ~2018-06-22 | XMS | Encounter Summary ---
Demographics + + + | Address | [address] | | | [place] [address] | + + + | Home Phone [...] + + + | Author | [facility] [employer] | + + + | Organization | [facility] | + + + | Address | Unknown | + + + | Phone | Unavailable | + + + Support + + +---------+ + | Name | Relationship | Address | Phone | + + +---------+ + | Kristel Teresa | ECON | Unknown | | + + +---------+ + Care Team Providers + +------+ + | Care Box Car Loader Name | Role | Phone | [...] Required | Medicine / | Radiculopath | CAR LOADER [address] | [address] | | | | Dolorology | y of lumbar | [place]AC[place] | DR [address] | | | | | region | [place] [address] | [place], [place] | | | | | Osteoarthrit | [place], [place] | [address] Phone: | | | | | is of lumbar | [address] | [phone] | | | | | spine, | Phone: | Fax: | | | | | unspecified | [phone] | [phone] | | | | | spinal | Fax: | | | | | | osteoarthrit | [phone] | | | | | | is [...] + + | 05/14/ | Office | [facility] | Xiang Sepulveda, | Radiculopathy of | | 2018 | Visit | [facility] | DO [address] | lumbar region | | | | [address] | [place] | (Primary Dx); Facet | | | | [place] | [address] | arthropathy, lumbar | | | | [address] | | ([facility]); | | | | [phone] | | Osteoarthritis of | | | [...] Will return to office in 4 weeks, [facility] was consulted and appears appropriate, Urine [...] are noted in men and women. Ma al men will suffer erectile dysfunction with these [...] and complications with the passage of time. correction use is also associated with depressions, and [...] | | | | | [place] | | | | | | [address] | | | | | | | [...]
--- OUTSIDE RECORDS SUMMARY | ~2018-06-22 | XMS | Clinical Summary ---
Demographics + + + | Address | [address] | | | [address] | | | [place] [address] | + + + | Home Phone | | + + + | Preferred Language | Unknown | + + + | Marital Status | | + + + | Latter-Day Affiliation | 1076 | + + + | Race | Unknown | + + + | Ethnic Group | Unknown | + + + Author + + + | Author | [facility] | | | and Sumitana | + + + | Organization | [facility] | | [...] [place] | | | | | [address] | | + + + + + | Casandra Smith | ECON | [address] | | | | | [place] | | + + + + + Care Team Providers + +------+ + | Care Costume Cutter Name | Role | Phone | [...] abdominal pain. Seen Hood Sommer | | [facility] Colonoscopy 11/02/08diverticulosis sigmoid and | | [...] | YAMILA DRISCOLL | | 08/15/ | [id number] | | - [id number]: Qty: 1 | | | INCORPORATE | | 2018 | / | | on 11/25/2016 by Rustam Schmid | | Ureter | D | | | /[id number] | | GMD | | | | [...] | [employer] | [employer] | [id number] | Medica | [phone] | | | [...] | | | gigi | | | [address] | [place] [phone] | + +--------+ +--------+ + +
--- OUTSIDE RECORDS SUMMARY | ~2018-06-22 | XMS | Encounter Summary ---
Demographics + + + | Address | [address] | | | [place] [address] | + + + | Home Phone | | + + + | Preferred Language | Unknown | + + + | Marital Status | Single | + + + | Orthodox Affiliation | Unknown | + + + | Race | Unknown | + + + | Ethnic Group | Unknown | + + + Author + + + | Author | [facility] [employer] [facility] | + + + | Organization | [facility] [employer] [facility] | + + + | Address | Unknown | + + + | Phone | Unavailable | + + + Support + + +---------+ + | Name | Relationship | Address | Phone | + + +---------+ + | Kristel Teresa | ECON | Unknown | | + + +---------+ + Care Team Providers + +------+ + | Care Oral And Maxillofacial Pathologist Name | Role | Phone | + [...] | | | | | hip | [place], [place] | [place], | | | | | | [address] | [place] | | | | | | Phone: | [phone] | | | | | | [phone] | Phone: | | | | | | Fax: | [phone] | | | | | | [phone] | Fax: | | | | | | | [phone] | +--------+ + + + + + Encounter Details +--------+---------+ + + + | Date | Type | Department | Care Team | Description | +--------+---------+ + + + | 03/26/ | Office | [facility] | Barry Corral DO | Hip pain, chronic, | | 2018 | Visit | [facility] | [address] | left (Primary Dx) | | | | MEDICINE [place] | [place] [address] | | | | | PAIN [address] | [phone] | | | | | [place], [place] | | | | | | [address] | | | | | | [phone] | | | +--------+---------+ + + + [...] may be different from hernan jacinto original. [facility]: Interventional Pain Management 03/26/2018 Shelby Galdamez 1960 Chief Complaint Patient presents with [facility] Left Hip Pain HISTORY OF PRESENT [...] 03/26/2018 This document has been prepared with [employer] voice recognition system. The possibility of "s ound alike" independent beauty consultant errors, and additions, or deletions may occur. [...] DR | | | | | | [place] | | | | | | [address] | | | | | | | | +--------+---------+ + + + as of this encounter Visit Diagnoses + + | Diagnosis | + + | Hip pain, chronic, left - Primary | + +
--- OUTSIDE RECORDS SUMMARY | ~2018-06-22 | XMS | Clinical Summary ---
Demographics + + + | Address | [address] | | | [place] [address] | + + + | Home Phone [...] + + + | Author | [facility] [employer] | + + + | Organization | [facility] | + + + | Address | Unknown | + + + | Phone | Unavailable | + + + Support + + +---------+ + | Name | Relationship | Address | Phone | + + +---------+ + | Kristel Teresa | ECON | Unknown | | + + +---------+ + Care Team Providers + +------+ + | Care Material Handling Supervisor Name | Role | Phone | [...] [place] | | | | | | [address] | | | | | | | [...] +------+-------+ + | MEDICAID | DENISA | [id number] | | | [address] | | | N | | | | [place] | | | [place] | | | | [address] | | | SOUND EFFECTS PERSON | | | | | + +--------+ [...] | [birth year] | Home: | [address] | | | al/Fam | | 1960 | [phone] | [place] | | | gigi | | | [phone] | [address] | + +--------+ +--------+ + +
--- OUTSIDE RECORDS SUMMARY | ~2018-06-22 | XMS | Encounter Summary ---
Demographics + + + | Address | [address] | | | [place] [address] | + + + | Home Phone | | + + + | Preferred Language | Unknown | + + + | Marital Status | Single | + + + | Rastafarian Affiliation | Unknown | + + + | Race | Unknown | + + + | Ethnic Group | Unknown | + + + Author + + + | Author | [facility] [employer] | + + + | Organization | [facility] [employer] [facility] | + + + | Address | Unknown | + + + | Phone | Unavailable | + + + Support + + +---------+ + | Name | Relationship | Address | Phone | + + +---------+ + | Kristel Teresa | ECON | Unknown | | + + +---------+ + Care Team Providers + +------+ + | Care Material Handler Name | Role | Phone | [...] Required | Medicine / | Radiculopath | [address] | [address] | | | | Dolorology | y of lumbar | [address] | DR CARRERA | | | | | region | [place] | [place] | | | | | Osteoarthrit | [place], [place] | [address] Phone: | | | | | is of lumbar | [address] | [phone] | | | | | spine, | Phone: | Fax: | | | | | unspecified | [phone] | [phone] | | | | | spinal | Fax: | | | | | | osteoarthrit | [phone] | | | | | | is [...] + + | 04/16/ | Office | [facility] | Xiang Sepulveda, | Radiculopathy of | | 2018 | Visit | [facility] | DO [address] | lumbar region | | | | [address] | [place] | (Primary Dx); Facet | | | | [place] | [address] | arthropathy, lumbar | | | | [address] | | (HCC); | | | | [phone] | | Osteoarthritis of | | | [...] the office today for medication evaluation follow-up. Daruisz nt medications that were given include Percocet [...] Will return to office in 4 weeks, [facility] was consulted and appears appropriate, Urine [...] are noted in men and women. Ma ca men will suffer erectile dysfunction with these [...] complications with the passage of time. terminal worker use is also associated with depressions, and [...] | | | | | [place], [place] | | | | | | [address] | | | | | | | [...]
--- OUTSIDE RECORDS SUMMARY | ~2018-06-22 | XMS | Encounter Summary ---
Demographics + + + | Address | [address] | | | [place] [address] | + + + | Home Phone | | + + + | Preferred Language | Unknown | + + + | Marital Status | Single | + + + | Caodaism Affiliation | Unknown | + + + | Race | Unknown | + + + | Ethnic Group | Unknown | + + + Author + + + | Author | [facility] [employer] | + + + | Organization | [facility] | + + + | Address | Unknown | + + + | Phone | Unavailable | + + + Support + + +---------+ + | Name | Relationship | Address | Phone | + + +---------+ + | Kristel Teresa | ECON | Unknown | | + + +---------+ + Care Team Providers + +------+ + | Care Laser Beam Trim Operator Name | Role | Phone | [...] + + | 04/01/ | Telephone | [facility] | Lor Trujillo, SUPERVISOR TRAIN OPERATIONS | Other (cancel | | 2018 | | [facility] | | injection ) | | | | MEDICINE [place] | | | | | | PAIN [address] | | | | | | [place] | | | | | | [address] | | | | | | [phone] | | | +--------+ + + + [...] [place] | | | | | | [address] | | | | | | | | +--------+---------+ + + + as of this encounter Visit Diagnoses Not on filein this encounter"
--- OUTSIDE RECORDS SUMMARY | ~2018-06-22 | XMS | Encounter Summary ---
Demographics + + + | Address | [address] | | | [place] [address] | + + + | Home Phone | | + + + | Preferred Language | Unknown | + + + | Marital Status | Single | + + + | Hoahaoism Affiliation | Unknown | + + + | Race | Unknown | + + + | Ethnic Group | Unknown | + + + Author + + + | Author | [facility] [employer] | + + + | Organization | [facility] | + + + | Address | Unknown | + + + | Phone | Unavailable | + + + Support + + +---------+ + | Name | Relationship | Address | Phone | + + +---------+ + | Kristel Teresa | ECON | Unknown | | + + +---------+ + Care Team Providers + +------+ + | Care Um Nurse Name | Role | Phone | [...] | | | | | hip | [place], [place] | [address] [place], | | | | | | [address] | [place] | | | | | | Phone: | [address] | | | | | | [phone] | Phone: | | | | | | Fax: | [phone] | | | | | | [phone] | Fax: | | | | | | | [phone] | +--------+ + + + + + Encounter Details +--------+---------+ + + + | Date | Type | Department | Care Team | Description | +--------+---------+ + + + | 03/26/ | Office | [facility] | Baryr Corral DO | Hip pain, chronic, | | 2018 | Visit | [facility] | [address] | left (Primary Dx) | | | | MEDICINE [place]OL[place] | [place] [address] | | | | | PAIN [address] | [phone] | | | | | [place], [place] | | | | | | [address] | | | | | | [phone] | | | +--------+---------+ + + + [...] may be different from hernan jacinto original. [facility]: Interventional Pain Management 03/26/2018 Shelby Galdamez 1960 Chief Complaint Patient presents with [facility] Care Left Hip Pain HISTORY [...] 03/26/2018 This document has been prepared with [employer] voice recognition system. The possibility of "s ound alike" promotions director errors, and additions, or deletions may occur. [...] [place] | | | | | | [address] | | | | | | | | +--------+---------+ + + + as of this encounter Visit Diagnoses + + | Diagnosis | + + | Hip pain, chronic, left - Primary | + +
--- OUTSIDE RECORDS SUMMARY | ~2018-06-22 | XMS | Encounter Summary ---
Demographics + + + | Address | [address] | | | [place] [address] | + + + | Home Phone [...] + + + | Author | [facility] [employer] | + + + | Organization | [facility] | + + + | Address | Unknown | + + + | Phone | Unavailable | + + + Support + + +---------+ + | Name | Relationship | Address | Phone | + + +---------+ + | Kristel Teresa | ECON | Unknown | | + + +---------+ + Care Team Providers + +------+ + | Care Intern Brand Name | Role | Phone | + +------+ + | Jaimie Monreal MD | PCP | | + +------+ + Encounter Details +--------+ + + + + | Date | Type | Department | Care Team | Description | +--------+ + + + + | 04/03/ | Telephone | [facility] | Lor Trujillo, BULK DELIVERY DRIVER | | | 2017 | | [facility] | | | | | | MEDICINE [place] | | | | | | PAIN [address] | | | | | | [place] | | | | | | [address] | | | | | | [phone] | | | +--------+ + + + [...]
--- OUTSIDE RECORDS SUMMARY | ~2018-06-22 | XMS | Clinical Summary ---
Demographics + + + | Address | [address] | | | [place] [address] | + + + | Home Phone | | + + + | Preferred Language | Unknown | + + + | Marital Status | Single | + + + | Advent Affiliation | Unknown | + + + | Race | Unknown | + + + | Ethnic Group | Unknown | + + + Author + + + | Author | [facility] [employer] | + + + | Organization | [facility] [facility] | + + + | Address | Unknown | + + + | Phone | Unavailable | + + + Support + + +---------+ + | Name | Relationship | Address | Phone | + + +---------+ + | Kristel Teresa | ECON | Unknown | | + + +---------+ + Care Team Providers + +------+ + | Care Chief Customer Officer Name | Role | Phone | [...] [place] | | | | | | [address] | | | | | | | [...] +------+-------+ + | MEDICAID | DENISA | [id number] | | | [address] | | | N | | | | [place] | | | [place] | | | | [address] | | | SQUARE CUTTER | | | | | + +--------+ [...] Self | [birth year] | Home: | [address] | | | al/Fam | | 1960 | [phone] | [place] | | | gigi | | | [phone] | [address] | + +--------+ +--------+ + +
--- OUTSIDE RECORDS SUMMARY | ~2018-06-22 | XMS | Encounter Summary ---
Demographics + + + | Address | [address] | | | [place] [address] | + + + | Home Phone [...] + + + | Author | [facility] [employer] | + + + | Organization | [facility] | + + + | Address | Unknown | + + + | Phone | Unavailable | + + + Support + + +---------+ + | Name | Relationship | Address | Phone | + + +---------+ + | Kristel Teresa | ECON | Unknown | | + + +---------+ + Care Team Providers + +------+ + | Care Salon Assistant Name | Role | Phone | [...] Required | Medicine / | Radiculopath | TELEVISION [address]S [address] | [address] | | | | Dolorology | y of lumbar | [address] | DR C[address]ERA | | | | | region | [place] | [place] | | | | | Osteoarthrit | [place], [place] | [address] Phone: | | | | | is of lumbar | [address] | [phone] | | | | | spine, | Phone: | Fax: | | | | | unspecified | [phone] | [phone] | | | | | spinal | Fax: | | | | | | osteoarthrit | [phone] | | | | | | is [...] + + | 06/12/ | Office | [facility] | Xiang Sepulveda, | Radiculopathy of | | 2018 | Visit | [facility] | DO [address] | lumbar region | | | | [address] | [place] MONTICELLO [place] | (Primary Dx); Facet | | | | [place] | [address] | arthropathy, lumbar | | | | [address] | | (HCC); | | | | [phone] | | Osteoarthritis of | | | [...] Will return to office in 4 weeks, [facility] was consulted and appears appropriate, [...] complications with the passage of time. exterminator helper termite use is also associated with depressions, and [...] | | | | | [place], [place] | | | | | | [address] | | | | | | | [...]
[~2018-06-22 14:40] MED LIST changes: +PYRIDIUM200 MG PO
--- OUTSIDE RECORDS SUMMARY | 2018-06-22 14:44 | XMS ---
PreManage Notification: CHASTITY BONILLA Security Processing Technologist Events No recent Security Events currently on file CRITERIA MET - Group Notification - [facility] - Has Care Guidelines CARE PROVIDERS EDIS PORRAS Primary Care 08/30/2017-Current PHONE: [phone] Eyad Vicente [facility] Current PHONE: Unknown Guidelines Source: [facility] Guidelines Date: 01/22/2018 Care Coordination: PATIENT HAS NEW PCP - EDIS PORRAS AT [place]. PATIENT WAS DISCHARGED FROM PAIN CONTRACT AT PCP DUE TO +DRUG SCREENS/ NO LONGER GETTING OPIOIDS FROM PCP PATIENT HAS A TOXICOLOGY SCREEN 01/15/18 THAT WAS POSITIVE FOR METHAMPHETAMINES USE CAUTION WITH NARCOTIC USE PLAN: CONTACT CASE MANAGEMENT TO SEE PATIENT IN EXAM ROOM WHEN IN ED DURING BUSINESS HOURS. ATTEMPT WILL BE MADE TO INVOLVE DRUG/ALCOHOL SERVICES TO SEE PATIENT. Care History Medical/Surgical 11/20/2017 [facility] Care Recommendation: This patient has had 5 or more Emergency Department visits in the last 12 months. Patient requires education on the scope and purpose of the ED as an acute care provider not a Primary Care Provider and should not be utilized for chronic conditions. If patient returns to ED please contact Community Health WorkerElizabeth at [phone]. These are guidelines and the provider should exercise clinical judgment when providing care. Substance Use/Overdose 11/27/2016 [facility] UPDATE BY PCP: PATIENT HAS FAILED 3 DRUG SCREENS INCLUDING POSITIVE FOR METHAMPHETAMINESIN A ROW AT PCP CLINIC. USE CAUTION WHEN GIVING NARCOTICS. AVOID HOME RX FOR NARCOTICS. CALL [facility] [phone] FOR RECOMMENDATIONS ON PAIN MEDS 10/24/2016 [facility] PT HAS HISTORY OF DRUG SEEKING BEHAVIOR. UNDER PAIN CONTRACT WITH PCP. PT DID NOT PASS RECENT RANDOM DRUG SCREEN WITH PCP. Social 12/26/2017 [facility] - Patient has been discharged from [facility] services due to not following through with any help and or services. - Patient admits to marijuana usage, please take this into consideration when providing treatment for nausea/stomach upset (clinical judgement) - Patient currently receives caregivers through [facility] patient case manager is Wendy. [place] VISIT COUNT (12 MO.) 10 [facility]. TOTAL 10 NOTE: Visits indicate total known visits. ED/UCC VISIT TRACKING (12 MO.) 06/22/2018 14:40 [facility] TYPE: Emergency COMPLAINT: - L KIDNEY PAIN 01/15/2018 05:31 [facility] [place] TYPE: Emergency COMPLAINT: - ABD PAIN,NAUSEA DIAGNOSES: - Chronic obstructive pulmonary disease, unspecified - Other stimulant abuse, uncomplicated - Noninfective gastroenteritis and colitis, unspecified - Allergy status to narcotic agent status - Other chronic pain - Allergy status to other drugs, medicaments and biological substances status - Urinary tract infection, site not specified - Nicotine dependence, unspecified, uncomplicated - Other terminal press operator (current) drug therapy - Allergy status to other antibiotic agents status - Essential (primary) hypertension - Epigastric pain - Major depressive disorder, single episode, unspecified 12/25/2017 14:40 [facility] [place] TYPE: Emergency COMPLAINT: - VOMITING DIAGNOSES: - Other terminal press operator (current) drug therapy - Ileus, unspecified - Chronic obstructive pulmonary disease, unspecified - Major depressive disorder, single episode, unspecified - Allergy status to other drugs, medicaments and biological substances status - Allergy status to other antibiotic agents status - Allergy status to narcotic agent status - Essential (primary) hypertension - Personal history of nicotine dependence 12/24/2017 19:02 [facility] [place] TYPE: Emergency COMPLAINT: - VOMITING DIAGNOSES: - Essential (primary) hypertension - Allergy status to other drugs, medicaments and biological substances status - Nausea with vomiting, unspecified - Allergy status to other antibiotic agents status - Noninfective gastroenteritis and colitis, unspecified - Major depressive disorder, single episode, unspecified - Chronic obstructive pulmonary disease, unspecified - Other long-term (current) drug therapy - Allergy status to narcotic agent status 11/18/2017 10:57 [facility] [place] TYPE: Emergency COMPLAINT: - ABDOMINAL PAIN DIAGNOSES: - Essential (primary) hypertension - Unspecified abdominal pain - Nausea with vomiting, unspecified - Allergy status to other antibiotic agents status - Allergy status to other drugs, medicaments and biological substances status - Other long-term (current) drug therapy - Allergy status to narcotic agent status - Obesity, unspecified 11/09/2017 13:59 [facility] TYPE: Emergency COMPLAINT: - ABDOMINAL PAIN DIAGNOSES: - Essential (primary) hypertension - Retention of urine, unspecified - Acquired absence of other specified parts of digestive tract - Left lower quadrant pain - Major depressive disorder, single episode, unspecified - Allergy status to other antibiotic agents status - Morbid (severe) obesity due to excess calories - Nicotine dependence, unspecified, uncomplicated - Other terminal press operator (current) drug therapy - Acquired absence of both cervix and uterus - Chronic obstructive pulmonary disease, unspecified - Unspecified abdominal pain - Right lower quadrant pain - Allergy status to narcotic agent status 11/05/2017 18:13 [facility] [place] TYPE: Emergency COMPLAINT: - PAIN 07/23/2017 12:50 [facility] TYPE: Emergency COMPLAINT: - LT LEG PAIN/NO INJURY DIAGNOSES: - Essential (primary) hypertension - Acquired absence of both cervix and uterus - Nicotine dependence, unspecified, uncomplicated - Allergy status to other drugs, medicaments and biological substances status - Allergy status to narcotic agent status - Allergy status to other antibiotic agents status - Low back pain - Lumbago with sciatica, right side - Major depressive disorder, single episode, unspecified - Other chronic pain - Chronic obstructive pulmonary disease, unspecified - Acquired absence of other specified parts of digestive tract 06/26/2017 22:19 [facility] [place] TYPE: Emergency COMPLAINT: - HEADACHE,VOMITING DIAGNOSES: - Headache - Nausea with vomiting, unspecified - Essential (primary) hypertension - Other terminal press operator (current) drug therapy - Major depressive disorder, single episode, unspecified - Allergy status to narcotic agent status - Allergy status to other antibiotic agents status - Chronic obstructive pulmonary disease, unspecified - Acquired absence of both cervix and uterus - Nicotine dependence, unspecified, uncomplicated - Acquired absence of other specified parts of digestive tract 06/26/2017 10:20 [facility] TYPE: Emergency COMPLAINT: - LT HIP PAIN/NON INJURY DIAGNOSES: - Chronic obstructive pulmonary disease, unspecified - Allergy status to narcotic agent status - Other chronic pain - Acquired absence of both cervix and uterus - Acquired absence of other specified parts of digestive tract - Major depressive disorder, single episode, unspecified - Nicotine dependence, unspecified, uncomplicated - Pain in left hip - Allergy status to other antibiotic agents status - Essential (primary) hypertension INPATIENT VISIT TRACKING (12 MO.) No inpatient visits to display in this time frame [email or web address]
[2018-06-22] MEDS ORDERED: KEFLEX500 MG PO (16:44)
== END 2018-06-22 17:13 | disposition home or self-care (01) ==
LOC: ED 14:40
PROC: 0T9B70Z Drainage of Bladder with Drainage Device, Via Natural or Artificial Opening (ICD-10-PCS; principal; 2018-06-22)
DX: N39.0 Urinary tract infection, site not specified (principal); F15.10 Other stimulant abuse, uncomplicated; J44.9 Chronic obstructive pulmonary disease, unspecified; F32.9 Major depressive disorder, single episode, unspecified; I10 Essential (primary) hypertension; F17.200 Nicotine dependence, unspecified, uncomplicated; Z88.1 Allergy status to other antibiotic agents; Z88.8 Allergy status to other drugs, medicaments and biological substances; Z88.5 Allergy status to narcotic agent; Z79.899 Other long term (current) drug therapy; Z79.51 Long term (current) use of inhaled steroids
CPT/HCPCS: 36415; 51701; 74176; 80053; 81001; 85025; 96361; 96374; 99284; J0696; J7030

== ENCOUNTER 2018-06-24 19:24 | Emergency (ER) | payer OTHER ==
[~2018-06-24] VITALS: Ht 162.6 cm; Wt 139.8 kg
--- OUTSIDE RECORDS SUMMARY | ~2018-06-24 | XMS | Encounter Summary ---
Demographics + + + | Address | [address] | | | [place] [address] | + + + | Home Phone | | + + + | Preferred Language | Unknown | + + + | Marital Status | Single | + + + | Restorationist Affiliation | Unknown | + + + | Race | Unknown | + + + | Ethnic Group | Unknown | + + + Author + + + | Author | [facility] [employer] | + + + | Organization | [facility] [facility] | + + + | Address | Unknown | + + + | Phone | Unavailable | + + + Support + + +---------+ + | Name | Relationship | Address | Phone | + + +---------+ + | Kristel Teresa | ECON | Unknown | | + + +---------+ + Care Team Providers + +------+ + | Care Business Analytics Specialist Name | Role | Phone | [...] Required | Medicine / | Radiculopath | [address] | [address] | | | | Dolorology | y of lumbar | [place] | DR [address] | | | | | region | [place] | [place], [place] | | | | | Osteoarthrit | [place], [place] | [address] Phone: | | | | | is of lumbar | [address] | [phone] | | | | | spine, | Phone: | Fax: | | | | | unspecified | [phone] | [phone] | | | | | spinal | Fax: | | | | | | osteoarthrit | [phone] | | | | | | is | | | | | | | complication | | | | | | | status | | | | | | | Facet | | | | | | | arthropathy, | | | | | | | lumbar | | | | | | | (HCC) DDD | | | | | | [...] + + | 05/14/ | Office | [facility] | Xiang Sepulveda, | Radiculopathy of | | 2018 | Visit | [facility] | DO [address] | lumbar region | | | | [address] | [place] | (Primary Dx); Facet | | | | [place] | [address] | arthropathy, lumbar | | | | [address] | | ([facility]); | | | | [phone] | | Osteoarthritis of | | | [...] Current Pain Level 2/10 Worst 7/10 Best 1/10 Past Medical History Diagnosis Date Arthritis bilateral [...] Will return to office in 4 weeks, [facility] was consulted and appears appropriate, Urine Toxicology [...] are noted in men and women. Ma nh men will suffer erectile dysfunction with these [...] and complications with the passage of time. custodial use is also associated with depressions, and [...] | | | | | [place] | | | | | | [address] | | | | | | | | +--------+---------+ + + + as of this encounter Visit Diagnoses + + | Diagnosis | + + | Radiculopathy of lumbar region - Primary | + + | Thoracic or lumbosacral neuritis or radiculitis, unspecified | + + | Facet arthropathy, lumbar (HCC) | + + | Lumbosacral spondylosis without myelopathy | + + | Osteoarthritis of lumbar spine, unspecified spinal osteoarthritis complication status | + + | Hip pain, chronic, left | + +
--- OUTSIDE RECORDS SUMMARY | ~2018-06-24 | XMS | Encounter Summary ---
Demographics + + + | Address | [address] | | | [place] [address] | + + + | Home Phone | | + + + | Preferred Language | Unknown | + + + | Marital Status | Single | + + + | Scientologist Affiliation | Unknown | + + + | Race | Unknown | + + + | Ethnic Group | Unknown | + + + Author + + + | Author | [facility] | + + + | Organization | [facility] | + + + | Address | Unknown | + + + | Phone | Unavailable | + + + Support + + +---------+ + | Name | Relationship | Address | Phone | + + +---------+ + | Kristel Teresa | ECON | Unknown | | + + +---------+ + Care Team Providers + +------+ + | Care Claim Processing Specialist Name | Role | Phone | + +------+ + | Jaimie Monreal MD | PCP | | + +------+ + Reason for Visit + + + | Reason | Comments | + + + | Establish Care | Left Hip Pain | + + + Consultation (Routine) +--------+ + + + + + | Status | Reason | Specialty | Diagnoses / | Referred By | Referred To | | | | | Procedures | Contact | Contact | +--------+ + + + + + | Closed | Specialty | Dolorology | Diagnoses | Jai | Jim[facility] | | | Services | | Primary | Jerzy Evangelista MD | Carolyn | | | Required | | osteoarthrit | [address] | Pain Mgmt | | | | | is of left | [address] | [address] | | | | | hip | [place], [place] | [place], | | | | | | [address] | [place] | | | | | | Phone: | [phone] | | | | | | [phone] | Phone: | | | | | | Fax: | [phone] | | | | | | [phone] | Fax: | | | | | | | [phone] | +--------+ + + + + + Encounter Details +--------+---------+ + + + | Date | Type | Department | Care Team | Description | +--------+---------+ + + + | 03/26/ | Office | [facility] | Barry Corral DO | Hip pain, chronic, | | 2018 | Visit | ORTHO SPORTS | [address] | left (Primary Dx) | | | | MEDICINE [place]OLYN | [place] [address] | | | | | PAIN [address] | [phone] | | | | | [place], [place] | | | | | | [address] | | | | | | [phone] | | | +--------+---------+ + + + [...] + + + | Blood Pressure | 150/98 | 03/26/2018 3:55 PM PDT | + + + + | Pulse | 115 | 03/26/2018 3:55 PM PDT | + + + + | Temperature | - | - | + + + + | Respiratory Rate | - | - | + + + + | Oxygen Saturation | 96% | 03/26/2018 3:55 PM PDT | + + + + | Inhaled Oxygen | - | - | | Concentration | | | + + + + | Weight | 126.1 kg (278 lb) | 03/26/2018 3:55 PM PDT | + + + + | Height | 162.6 cm (5' 4") | 03/26/2018 3:55 PM PDT | + + + + | Body Mass Index | 47.72 | 03/26/2018 3:55 PM PDT | + + + + in this encounter Progress Notes Barry Corral DO - 03/26/2018 3:45 PM PDTFormatting of this note may be different from hernan jacinto original. [facility]: Interventional Pain Management 03/26/2018 Shelby Galdamez 1960 Chief Complaint Patient presents with On License Of [facility] Care Left Hip Pain HISTORY OF PRESENT ILLNESS Hip Pain The incident occurred more than 1 week ago. The quality of the pain is described as aching and stabbing. The pain is at a severity of 10/10. The pain is severe. Pertinent negatives in clude no numbness. The treatment provided mild relief. REVIEW OF SYSTEMS Review of Systems Constitutional: Negative for activity change, appetite change, fatigue and fever. HENT: Negative for congestion, trouble swallowing and voice change. Eyes: Negative for photophobia, discharge and visual disturbance. Respiratory: Negative for apnea, cough, shortness of breath and wheezing. Cardiovascular: Negative for chest pain, palpitations and leg swelling. Gastrointestinal: Negative for abdominal pain, diarrhea, nausea and vomiting. Endocrine: Negative for cold intolerance, heat intolerance and polyuria. Musculoskeletal: Negative for back pain, joint swelling and neck pain. Skin: Negative for color change and rash. Allergic/Immunologic: Negative for environmental allergies and food allergies. Neurological: Negative for dizziness, seizures, weakness, light-headedness, numbness and he adaches. Hematological: Does not bruise/bleed easily. Psychiatric/Behavioral: Negative for dysphoric mood and suicidal ideas. The patient is not nervous/anxious. All other systems reviewed and are negative. Past Medical History Diagnosis Date Arthritis bilateral shoulders Hypertension Other chronic pain Past Surgical History Procedure Laterality Date adniodec APPENDECTOMY CHOLECYSTECTOMY HYSTERECTOMY KNEE SURGERY Bilateral right hip surgery Right TONSILLECTOMY Allergies Allergen Reactions Lipitor [Atorvastatin] Hives and Rash Morphine Hives, Nausea and Vomiting and Rash Prior to Admission medications Medication Sig Start Date End Date Taking? Authorizing Provider albuterol (VENTOLIN HFA) 108 (90 Base) MCG/ACT inhaler Inhale 1 puff every 6 hours as neede d for shortness of breath 06/13/12 Historical Provider Cyclobenzaprine HCl (FLEXERIL PO) Take by mouth as needed. Historical Provider desvenlafaxine (PRISTIQ) 50 MG 24 hr tablet 09/28/17 Historical Provider furosemide (LASIX) 20 MG tablet take 1 tablet by mouth once daily 08/28/17 Historical Pro vider losartan (COZAAR) 50 MG tablet Take 50 mg by mouth daily. 10/03/17 Historical Provider omeprazole (PRILOSEC) 20 MG capsule Take 20 mg by mouth. Historical Provider oxyCODONE-acetaminophen (PERCOCET) 5-325 MG per tablet Take 1 tablet by mouth every 8 (eigh t) hours as needed for Pain for up to 30 days. 03/18/18 04/17/18 Xiang Sepulveda, DO Turmeric 500 MG CAPS Take 500 mg by mouth. Historical Provider Family History Problem Relation Age of Onset Cancer Father Social History Social History Marital status: Single Spouse name: N/A Number of children: N/A Years of education: N/A Occupational History Not on file. Social History Main Topics Smoking status: Former Smoker Quit date: 12/12/2017 Smokeless tobacco: Never Used Alcohol use No Drug use: Yes Types: Marijuana, Methamphetamines, Other-see comments Comment: former meth, in the 80s Sexual activity: No Other Topics Concern Not on file Social History Narrative No narrative on file PHYSICAL EXAM Vital Signs: BP (!) 150/98 | Pulse 115 | Ht 1.626 m (5' 4") | Wt 126.1 kg (278 lb) | SpO2 96% | BMI 47.72 kg/m Physical Exam Constitutional: She is oriented to person, place, and time. She appears well-developed and well-nourished. HENT: Head: Normocephalic and atraumatic. Eyes: Conjunctivae are normal. Neck: No tracheal deviation present. Cardiovascular: Normal rate and regular rhythm. Pulmonary/Chest: Effort normal. Abdomina/Gl: Soft. Bowel sounds are normal. Neurological: She is alert and oriented to person, place, and time. Skin: Skin is warm and dry. Psychiatric: She has a normal mood and affect. Her behavior is normal. Judgment normal. Vitals reviewed. Left Hip Exam Tenderness The patient is experiencing tenderness in the greater trochanter. Range of Motion Extension: abnormal Flexion: abnormal Internal Rotation: abnormal External Rotation: abnormal Abduction: abnormal Adduction: abnormal DATA No results found. PROBLEM LIST 1. Hip pain, chronic, left ASSESSMENT & PLAN Mrs. Galdamez is a 58 -year-old female here complaining of left-sided hip pain. She did see Gene Vergara who did recommend intraarticular hip joint replacement, but unfortunately due t o her habitus they will not be able to proceed. She previously did have intraarticular hip joint injections that did give relief, but they were very short lived. We did discuss doing a test injection of the obturator and femoral accessory nerves that feed the intraarticular hip joint with local anesthetic. If she gets 50 percent of greater relief from this we wou ld discuss the possibility of moving forward with radiofrequency ablation of her hip joint. We did go over the risks and benefits of the procedure as well as the description of the pr ocedure itself. She does agree with the plan. Was encouraged to call with any questions th at may arise, and we do look forward to participating in her care. Patient is currently participating in home exercises. Primary Care Physician: Jaimie Monreal follow up Barry Corral DO 03/26/2018 This document has been prepared with [employer] voice recognition system. The possibility of "s ound alike" manager government errors, and additions, or deletions may occur. If there is any que stion with respect to clarity of the message being conveyed, please contact me directly for clarification.in this encounter Plan of Treatment +--------+---------+ + + + | Date | Type | Specialty | Care Team | Description | +--------+---------+ + + + | 07/14/ | Office | Dolorology | Xiang Sepulveda, | | | 2017 | Visit | | [address] | | | | | | [place] | | | | | | [address] | | | | | | | | +--------+---------+ + + + as of this encounter Visit Diagnoses + + | Diagnosis | + + | Hip pain, chronic, left - Primary | + +
--- OUTSIDE RECORDS SUMMARY | ~2018-06-24 | XMS | Clinical Summary ---
Demographics + + + | Address | [address] | | | [place] [address] | + + + | Home Phone | | + + + | Preferred Language | Unknown | + + + | Marital Status | Single | + + + | Moravian Affiliation | Unknown | + + + | Race | Unknown | + + + | Ethnic Group | Unknown | + + + Author + + + | Author | [facility] | + + + | Organization | [facility] | + + + | Address | Unknown | + + + | Phone | Unavailable | + + + Support + + +---------+ + | Name | Relationship | Address | Phone | + + +---------+ + | Kristel Teresa | ECON | Unknown | | + + +---------+ + Care Team Providers + +------+ + | Care Syrup Mixer Name | Role | Phone | [...] | 04/01/ | Telephone | | Lor Trujillo CMA | Other (cancel | | 2017 | | | | injection ) | +--------+ + + + + | 03/26/ | Office | | Barry Corral DO | Hip pain, chronic, | | 2017 | Visit | | | left (Primary Dx) | +--------+ + + + + from [...] [place] | | | | | | [address] | | | | | | | [...] + +--------+ +------+-------+ + | MEDICAID | DENISA | [id number] | | | [address] | | | [place] | | | | [place] | | | [place] | | | | [address] | | | FOREST 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
--- OUTSIDE RECORDS SUMMARY | ~2018-06-24 | XMS | Clinical Summary ---
Demographics + + + | Address | [address] | | | [address] | | | [place] [address] | + + + | Home Phone | | + + + | Preferred Language | Unknown | + + + | Marital Status | | + + + | Christian Affiliation | [phone] | + + + [...] [place] | | | | | [address] | | + + + + + | Casandra Smith | ECON | [address] | | | | | [place] | | + + + + + Care Team Providers + +------+ + | Care Senior Research Scientist Name | Role | Phone [...] Morbid obesity with BMI of 50.0-59.9, adult ([facility]) | 11/25/2016 | + + + | ABDOMINAL PAIN-GENERALIZED | 03/06/2012 | + + + | Obstructive sleep apnea | 06/21/2011 | + + + | Disorder of function of stomach | 10/26/2008 | + + + + + | Overview: Overview: N/V and abdominal pain. Seen Hood Sommer | | [facility] 11/02/08diverticulosis sigmoid and | | [...] 6fr 26cm | Stent | Right: | COOK | | 08/15/ | [id number] | | - [id number]: Qty: 1 | | | [employer] | | 2018 | / | | on 11/25/2016 by Rustam Schmid | | Ureter | - COOK | | | /[id number] | | MD Cordelia | | | [...] | [employer] | MODA | [id number] | Medica | [phone] | | [...] [address] | | | al/Fam | | [phone] | [phone] | [address] [place], | | | gigi | | | [phone] | [place] [phone] | + +--------+ +--------+ + +
--- OUTSIDE RECORDS SUMMARY | ~2018-06-24 | XMS | Encounter Summary ---
Demographics + + + | Address | [address] | | | [place] [address] | + + + | Home Phone | | + + + | Preferred Language | Unknown | + + + | Marital Status | Single | + + + | Baptist Affiliation | Unknown | + + + | Race | Unknown | + + + | Ethnic Group | Unknown | + + + Author + + + | Author | [facility] | + + + | Organization | [facility] | + + + | Address | Unknown | + + + | Phone | Unavailable | + + + Support + + +---------+ + | Name | Relationship | Address | Phone | + + +---------+ + | Kristel Teresa | ECON | Unknown | | + + +---------+ + Care Team Providers + +------+ + | Care Financial Management Name | Role | Phone | [...] Required | Medicine / | Radiculopath | [address] | [address] | | | | Dolorology | y of lumbar | [address] | DR CARRERA | | | | | region | [place] | [place] | | | | | Osteoarthrit | [place], [place] | [address] Phone: | | | | | is of lumbar | [address] | [phone] | | | | | spine, | Phone: | Fax: | | | | | unspecified | [phone] | [phone] | | | | | spinal | Fax: | | | | | | osteoarthrit | [phone] | | | | | | is [...] Description | +--------+---------+ + + + | 06/12/ | Office | [facility] | Xiang Sepulveda, | Radiculopathy of | | 2018 | Visit | [facility] | DO [address] | lumbar region | | | | [address] | [place] | (Primary Dx); Facet | | | | [place] | [address] | arthropathy, lumbar | | | | [address] | | (HCC); | | | | [phone] | | Osteoarthritis of | | | [...] encounter Progress Notes Xiang Sepulveda DO - 06/12/2018 8:00 AM PDTFormatting of this note may be different from the original. Patient returns for medication review and adjustment as deemed necessary for medical manage ment and insurance issues 58-year-old female seen back in the office today for medication evaluation follow-up. Current medications that we give her include Percocet 5/325 one po q8 hours prn pain appare ntly she takes Flexeril on a prn basis which she gets from her primary care physician. VS Stable; Alert and Oriented X 4 [...] positive : Seated Flexion negative Gait - WNL Improved Functional Status for Age Including ADL's, Mobility and Transfers where appropriate Assistive Devices : none LAB REVIEWED Available No visits with results within 1 Month(s) from this visit. Latest known visit with results is: No results found for any previous visit. ] XRAYS REVIEWED Available No results found. IMPRESSION : Chronic pain syndrome, past medical history as outlined above including chroni c hip pain PLAN : Continue current medication regime with these changes and/ or additions : Refill he r Percocet 5/325 one po q8 hours Patient understands and is in full agreement with the above plan, Will return to office in 4 weeks, [facility] was consulted and appears appropriate, Urine [...] and complications with the passage of time. exterminator use is also associated with depressions, and [...] 2017 | Visit | | DO [address] | | | | | | [place], [place] | | | | | | [address] | | | | | | | [...]
--- OUTSIDE RECORDS SUMMARY | ~2018-06-24 | XMS | Clinical Summary ---
Demographics + + + | Address | [address] | | | [place] [address] | + + + | Home Phone [...] Providers + +------+ + | Care Client Support Administrator Name | Role | Phone | + +------+ + | Travis Mcginnis MD | PP | Unavailable | + +------+ + Source Comments LION is fully live [facility] and [facility] Allergies + + + + + + [...] | | + + + +---------+------+------+-------+ | [place]-3 Fatty | Take by mouth. | | [...]
--- OUTSIDE RECORDS SUMMARY | ~2018-06-24 | XMS | Encounter Summary ---
Demographics + + + | Address | [address] | | | [place] [address] | + + + | Home Phone | | + + + | Preferred Language | Unknown | + + + | Marital Status | Single | + + + | Adventism Affiliation | Unknown | + + + | Race | Unknown | + + + | Ethnic Group | Unknown | + + + Author + + + | Author | [email or web address] | + + + | Organization | [email or web address] | + + + | Address | Unknown | + + + | Phone | Unavailable | + + + Support + + +---------+ + | Name | Relationship | Address | Phone | + + +---------+ + | Kristel Teresa | ECON | Unknown | | + + +---------+ + Care Team Providers + +------+ + | Care Early Childhood Name | Role | Phone | + [...] + + | 04/01/ | Telephone | [facility] | Lor Trujillo, FRAMING SPECIALIST | Other (cancel | | 2018 | | ORTHO SPORTS | | injection ) | | | | MEDICINE [place] | | | | | | PAIN [address] | | | | | | [place] | | | | | | [address] | | | | | | [phone] | | | +--------+ + + + [...] [place] | | | | | | [address] | | | | | | | | +--------+---------+ + + + as of this encounter Visit Diagnoses Not on filein this encounter"
--- OUTSIDE RECORDS SUMMARY | ~2018-06-24 | XMS | Clinical Summary ---
Demographics + + + | Address | [address] | | | [place] [address] | + + + | Home Phone [...] + + + | Author | [facility] | + + + | Organization | [facility] | + + + | Address | Unknown | + + + | Phone | Unavailable | + + + Support + + +---------+ + | Name | Relationship | Address | Phone | + + +---------+ + | Kristel Teresa | ECON | Unknown | | + + +---------+ + Care Team Providers + +------+ + | Care Recreation Activities Coordinator Name | Role | Phone | [...] [place] | | | | | | [address] | | | | | | | [...] +------+-------+ + | MEDICAID | DENISA | [id number] | | | [address] | | | N | | | | [place] | | | [place] | | | | [address] | | | LANGUAGE INTERPRETER | | | | | + +--------+ [...] Self | [birth year] | Home: | [address] | | | al/Fam | | 1960 | [phone] | [place] | | | [place] | | | [phone] | [phone] | + +--------+ +--------+ + +
--- OUTSIDE RECORDS SUMMARY | ~2018-06-24 | XMS | Encounter Summary ---
Demographics + + + | Address | [address] | | | [place] [address] | + + + | Home Phone | | + + + | Preferred Language | Unknown | + + + | Marital Status | Single | + + + | Yarsanism Affiliation | Unknown | + + + | Race | Unknown | + + + | Ethnic Group | Unknown | + + + Author + + + | Author | [facility] | + + + | Organization | [facility] | + + + | Address | Unknown | + + + | Phone | Unavailable | + + + Support + + +---------+ + | Name | Relationship | Address | Phone | + + +---------+ + | Kristel Teresa | ECON | Unknown | | + + +---------+ + Care Team Providers + +------+ + | Care Casino Dealer Name | Role | Phone | + [...] | | | | | hip | [place], [place] | [place], | | | | | | [address] | [place] | | | | | | Phone: | [address] | | | | | | [phone] | Phone: | | | | | | Fax: | [phone] | | | | | | [phone] | Fax: | | | | | | | [phone] | +--------+ + + + + + Encounter Details +--------+---------+ + + + | Date | Type | Department | Care Team | Description | +--------+---------+ + + + | 03/26/ | Office | [facility] | Barry Corral DO | Hip pain, chronic, | | 2018 | Visit | ORTHO SPORTS | [address] | left (Primary Dx) | | | | MEDICINE [place] | [place] [address] | | | | | PAIN [address] | [phone] | | | | | [place], [place] | | | | | | [address] | | | | | | [phone] | | | +--------+---------+ + + + [...] may be different from hernan jacinto original. [facility]: Interventional Pain Management 03/26/2018 Shelby Galdamez 1960 Chief Complaint Patient presents with [facility] Left Hip Pain HISTORY OF [...] 03/26/2018 This document has been prepared with [employer] voice recognition system. The possibility of "s ound alike" wall taper helper errors, and additions, or deletions may occur. [...] [place] | | | | | | [address] | | | | | | | | +--------+---------+ + + + as of this encounter Visit Diagnoses + + | Diagnosis | + + | Hip pain, chronic, left - Primary | + +
--- OUTSIDE RECORDS SUMMARY | ~2018-06-24 | XMS | Encounter Summary ---
Demographics + + + | Address | [address] | | | [place] [address] | + + + | Home Phone | | + + + | Preferred Language | Unknown | + + + | Marital Status | Single | + + + | Episcopal Affiliation | Unknown | + + + | Race | Unknown | + + + | Ethnic Group | Unknown | + + + Author + + + | Author | [facility] | + + + | Organization | [facility] | + + + | Address | Unknown | + + + | Phone | Unavailable | + + + Support + + +---------+ + | Name | Relationship | Address | Phone | + + +---------+ + | Kristel Teresa | ECON | Unknown | | + + +---------+ + Care Team Providers + +------+ + | Care Block Press Operator Name | Role | Phone | + +------+ + | Jaimie Monreal MD | PCP | | + +------+ + Encounter Details +--------+ + + + + | Date | Type | Department | Care Team | Description | +--------+ + + + + | 04/03/ | Telephone | [facility] | Lor Trujillo, DIRECTOR BUSINESS TRAVEL | | | 2017 | | ORTHO SPORTS | | | | | | MEDICINE [place] | | | | | | PAIN [address] | | | | | | [place] | | | | | | [address] | | | | | | [phone] | | | +--------+ + + + [...]
--- OUTSIDE RECORDS SUMMARY | ~2018-06-24 | XMS | Encounter Summary ---
Demographics + + + | Address | [address] | | | [place] [address] | + + + | Home Phone [...] + + + | Author | [facility] | + + + | Organization | [facility] | + + + | Address | Unknown | + + + | Phone | Unavailable | + + + Support + + +---------+ + | Name | Relationship | Address | Phone | + + +---------+ + | Kristel Teresa | ECON | Unknown | | + + +---------+ + Care Team Providers + +------+ + | Care Envelope Maker Name | Role | Phone | [...] Required | Medicine / | Radiculopath | [address] | [address] | | | | Dolorology | y of lumbar | [address] | DR [address] | | | | | region | [place] | [place] | | | | | Osteoarthrit | [place], [place] | [address] Phone: | | | | | is of lumbar | [address] | [phone] | | | | | spine, | Phone: | Fax: | | | | | unspecified | [phone] | [phone] | | | | | spinal | Fax: | | | | | | osteoarthrit | [phone] | | | | | | is [...] + + | 04/16/ | Office | [facility] | Xiang Sepulveda, | Radiculopathy of | | 2018 | Visit | [facility] | DO [address] | lumbar region | | | | [address] | [place] | (Primary Dx); Facet | | | | [place] | [address] | arthropathy, lumbar | | | | [address] | | (HCC); | | | | [phone] | | Osteoarthritis of | | | [...] are noted in men and women. Ma mi men will suffer erectile dysfunction with these [...] and complications with the passage of time. predatory animal exterminator use is also associated with depressions, [...] | | | | | [place], [place] | | | | | | [address] | | | | | | | [...]
--- OUTSIDE RECORDS SUMMARY | ~2018-06-24 | XMS | Clinical Summary ---
Demographics + + + | Address | [address] | | | [place] [address] | + + + | Home Phone [...] Team Providers + +------+ + | Care Cop Examiner Name | Role | Phone | + +------+ + | Travis Mcginnis MD | PP | Unavailable | + +------+ + Source Comments [facility]ION is fully live on [facility] and [facility] Allergies + + + + [...] | | + + + +---------+------+------+-------+ | [place]-3 Fatty | Take by mouth. | | [...]
--- OUTSIDE RECORDS SUMMARY | ~2018-06-24 | XMS | Encounter Summary ---
Demographics + + + | Address | [address] | | | [place] [address] | + + + | Home Phone | | + + + | Preferred Language | Unknown | + + + | Marital Status | Single | + + + | Christian Affiliation | Unknown | + + + | Race | Unknown | + + + | Ethnic Group | Unknown | + + + Author + + + | Author | [facility]on [employer] | + + + | Organization | [facility] [employer] [facility] | + + + | Address | Unknown | + + + | Phone | Unavailable | + + + Support + + +---------+ + | Name | Relationship | Address | Phone | + + +---------+ + | Kristel Teresa | ECON | Unknown | | + + +---------+ + Care Team Providers + +------+ + | Care Sterile Processing Tech Name | Role | Phone | [...] + + | 04/01/ | Telephone | [facility] | Lor Trujillo, DUNGEON MASTER | Other (cancel | | 2018 | | [facility] | | injection ) | | | | [facility]IC[facility] [place] | | | | | | PAIN [address] | | | | | | [place] | | | | | | [address] | | | | | | [phone] | | | +--------+ + + + [...] [place] | | | | | | [address] | | | | | | | | +--------+---------+ + + + as of this encounter Visit Diagnoses Not on filein this encounter"
--- OUTSIDE RECORDS SUMMARY | ~2018-06-24 | XMS | Encounter Summary ---
Demographics + + + | Address | [address] | | | [place] [address] | + + + | Home Phone [...] + + + | Author | [facility] [employer] [facility] | + + + | Organization | [facility] [employer] [facility] | + + + | Address | Unknown | + + + | Phone | Unavailable | + + + Support + + +---------+ + | Name | Relationship | Address | Phone | + + +---------+ + | Kristel Teresa | ECON | Unknown | | + + +---------+ + Care Team Providers + +------+ + | Care Yarn Texturing Machine Operator Name | Role | Phone | + +------+ + | Jaimie Monreal MD | PCP | | + +------+ + Encounter Details +--------+ + + + + | Date | Type | Department | Care Team | Description | +--------+ + + + + | 04/03/ | Telephone | [facility] | Lor Trujillo, INSURANCE OFFICE MANAGER | | | 2017 | | [facility] | | | | | | [facility]IC[facility] [place] | | | | | | PAIN [address] | | | | | | [place] | | | | | | [address] | | | | | | [phone] | | | +--------+ + + + [...]
--- OUTSIDE RECORDS SUMMARY | ~2018-06-24 | XMS | Encounter Summary ---
Demographics + + + | Address | [address] | | | [place] [address] | + + + | Home Phone | | + + + | Preferred Language | Unknown | + + + | Marital Status | Single | + + + | Gnosticist Affiliation | Unknown | + + + | Race | Unknown | + + + | Ethnic Group | Unknown | + + + Author + + + | Author | [facility] [employer] | + + + | Organization | [facility] [facility] | + + + | Address | Unknown | + + + | Phone | Unavailable | + + + Support + + +---------+ + | Name | Relationship | Address | Phone | + + +---------+ + | Kristel Teresa | ECON | Unknown | | + + +---------+ + Care Team Providers + +------+ + | Care Producer Arborist Manager Name | Role | Phone | [...] Required | Medicine / | Radiculopath | [address] | [address] | | | | Dolorology | y of lumbar | [address] | DR [address]ERA | | | | | region | [place] | [place] | | | | | Osteoarthrit | [place], [place] | [address] Phone: | | | | | is of lumbar | [address] | [phone] | | | | | spine, | Phone: | Fax: | | | | | unspecified | [phone] | [phone] | | | | | spinal | Fax: | | | | | | osteoarthrit | [phone] | | | | | | is [...] + + | 04/16/ | Office | [facility] | Xiang Sepulveda, | Radiculopathy of | | 2018 | Visit | [facility] | DO [address] | lumbar region | | | | [address] | [place] | (Primary Dx); Facet | | | | [place] | [address] | arthropathy, lumbar | | | | [address] | | (HCC); | | | | [phone] | | Osteoarthritis of | | | [...] + in this encounter Progress Notes Xiang Sepuvleda DO - 04/16/2018 11:20 AM PDTFormatting of [...] return to office in 4 weeks, [facility] was consulted and appears appropriate, [...] are noted in men and women. Ma dc men will suffer erectile dysfunction with these [...] 07/14/ | Office | Dolorology | Xiang Sepulvdea, | | | 2017 | Visit | | DO [address] | | | | | | [place], [place] | | | | | | [address] | | | | | | | [...]
--- OUTSIDE RECORDS SUMMARY | ~2018-06-24 | XMS | Encounter Summary ---
Demographics + + + | Address | [address] | | | [place] [address] | + + + | Home Phone | | + + + | Preferred Language | Unknown | + + + | Marital Status | Single | + + + | Jehovah'S Witness Affiliation | Unknown | + + + | Race | Unknown | + + + | Ethnic Group | Unknown | + + + Author + + + | Author | [facility] [employer] | + + + | Organization | [facility] [employer] [facility] | + + + | Address | Unknown | + + + | Phone | Unavailable | + + + Support + + +---------+ + | Name | Relationship | Address | Phone | + + +---------+ + | Kristel Teresa | ECON | Unknown | | + + +---------+ + Care Team Providers + +------+ + | Care Mc Kay Machine Operator Name | Role | Phone [...] Required | Medicine / | Radiculopath | [address] | [address] | | | | Dolorology | y of lumbar | [address] | DR [address] | | | | | region | [place] | [place] | | | | | Osteoarthrit | [place], [place] | [address] Phone: | | | | | is of lumbar | [address] | [phone] | | | | | spine, | Phone: | Fax: | | | | | unspecified | [phone] | [phone] | | | | | spinal | Fax: | | | | | | osteoarthrit | [phone] | | | | | | is [...] + + | 06/12/ | Office | [facility] | Xiang Sepulveda, | Radiculopathy of | | 2018 | Visit | [facility] | DO [address] | lumbar region | | | | [address] | [place] | (Primary Dx); Facet | | | | [place] | [address] | arthropathy, lumbar | | | | [address] | | (HCC); | | | | [phone] | | Osteoarthritis of | | | [...] Will return to office in 4 weeks, [facility] was consulted [...] and complications with the passage of time. emt intermediate use is also associated with depressions, and [...] | | | | | [place], [place] | | | | | | [id number] | | | | | | | [...]
--- OUTSIDE RECORDS SUMMARY | ~2018-06-24 | XMS | Encounter Summary ---
Demographics + + + | Address | [address] | | | [place] [address] | + + + | Home Phone | | + + + | Preferred Language | Unknown | + + + | Marital Status | Single | + + + | Buddhist Affiliation | Unknown | + + + | Race | Unknown | + + + | Ethnic Group | Unknown | + + + Author + + + | Author | [facility] [employer] | + + + | Organization | [facility] [employer] [facility] | + + + | Address | Unknown | + + + | Phone | Unavailable | + + + Support + + +---------+ + | Name | Relationship | Address | Phone | + + +---------+ + | Kristel Teresa | ECON | Unknown | | + + +---------+ + Care Team Providers + +------+ + | Care Chief Knowledge Officer Name | Role | Phone | [...] Required | Medicine / | Radiculopath | [address] | [address] | | | | Dolorology | y of lumbar | [address] | DR [address] | | | | | region | [place] | [place], [place] | | | | | Osteoarthrit | [place], [place] | [address] Phone: | | | | | is of lumbar | [address] | [phone] | | | | | spine, | Phone: | Fax: | | | | | unspecified | [phone] | [phone] | | | | | spinal | Fax: | | | | | | osteoarthrit | [phone] | | | | | | is [...] + | 05/14/ | Office | [facility] | Xiang Sepulveda, | Radiculopathy of | | 2018 | Visit | [facility] | DO [address] | lumbar region | | | | [address] | [place] | (Primary Dx); Facet | | | | [place] | [address] | arthropathy, lumbar | | | | [address] | | ([facility]); | | | | [phone] | | Osteoarthritis of | | | [...] Will return to office in 4 weeks, [facility] was consulted and appears appropriate, Urine Toxicology [...] and complications with the passage of time. snf use is also associated with depressions, and [...] | | | | | [place] | | | | | | [address] | | | | | | | [...]
--- OUTSIDE RECORDS SUMMARY | ~2018-06-24 | XMS | Clinical Summary ---
Demographics + + + | Address | [address] | | | [address] | | | [place] [address] | + + + | Home Phone [...] [place] | | | | | [address] | | + + + + + | Casandra Smith | ECON | [address] | | | | | [place] | | + + + + + Care Team Providers + +------+ + | Care Treasury Agent Name | Role | Phone | [...] Morbid obesity with BMI of 50.0-59.9, adult ([facility]) | 11/25/2016 | + + + | ABDOMINAL PAIN-GENERALIZED | 03/06/2012 | + + + | Obstructive sleep apnea | 06/21/2011 | + + + | Disorder of function of stomach | 10/26/2008 | + + + + + | Overview: Overview: N/V and abdominal pain. Seen Hood Sommer | | [facility] Colonoscopy 11/02/08diverticulosis sigmoid and | [...] Right: | COOK | | 08/15/ | [id number] | | - [id number]: Qty: 1 | | | [employer] | | 2018 | / | | on 11/25/2016 by Rustam Schmid | | Ureter | - COOK | | | /[id number] | | MD Cordelia | | | [...] | [employer] | [employer] | [id number] | [employer] | [phone] | | | [...] | | al/Fam | | [phone] | [phone] | [address] [place], | | | gigi | | | [address] | [place] [address] | + +--------+ +--------+ + +
--- OUTSIDE RECORDS SUMMARY | 2018-06-24 19:30 | XMS ---
PreManage Notification: CHASTITY BONILLA Security Cook Apprentice Events No recent Security Events currently on file CRITERIA MET - Group Notification - [facility] - Has Care Guidelines - [facility] - 2 Visits in 30 Days CARE PROVIDERS [facility] 06/23/2018-Mihai R[place]HAWA PHONE: Unknown [facility] 08/30/2017-Current PHONE: [phone] Eyad Vicente MD PHONE: Unknown Guidelines Source: [facility] Guidelines Date: 01/22/2018 Care Coordination: PATIENT HAS NEW PCP - ED[facility] P[facility] AT [place], [place]. PATIENT WAS DISCHARGED FROM PAIN CONTRACT [...] DRUG/ALCOHOL SERVICES TO SEE PATIENT. Care History Social 12/26/2017 [facility] - Patient has been discharged from [facility] services due to not following through with any help and or services. - Patient admits to marijuana usage, please take this into consideration when providing treatment for nausea/stomach upset (clinical judgement) - Patient currently receives caregivers through [facility] bilingual case manager is Willa. Substance Use/Overdose 11/27/2016 [facility] UPDATE BY PCP: PATIENT HAS FAILED 3 DRUG SCREENS INCLUDING POSITIVE FOR METHAMPHETAMINESIN A ROW AT PCP CLINIC. USE CAUTION WHEN GIVING NARCOTICS. AVOID HOME RX FOR NARCOTICS. CALL [facility] [phone] FOR RECOMMENDATIONS ON PAIN MEDS 10/24/2016 [facility] PT HAS HISTORY OF DRUG SEEKING BEHAVIOR. UNDER PAIN CONTRACT WITH PCP. PT DID NOT PASS RECENT RANDOM DRUG SCREEN WITH PCP. Medical/Surgical 06/24/2018 [facility] - PATIENT CALLED PCP OFFICE ON 06/23 STATING THE ANTIBIOTICS ARE NOT WORKING. - PCP OFFICE STATED THAT PATIENT WOULD NEED TO BE SEEN TO PRESCRIBE FURTHER MEDICATIONS AND PATIENT DECLINED TO MAKE AN APT BECAUSE SHE STATED SHE CAN\T\ #39;T GET UP BY HERSELF. - CHW CALLED PATIENT 2X AND NO RESPONSE FROM MESSAGE LEFT. - IF PATIENT IS SEEN IN THE ED PLEASE REFER PATIENT TO PCP AND TO SCHEDULE FOLLOW UP PCP APT\T\#39;S. - PLEASE BE CAUTIOUS PATIENT TESTS POSITIVE FOR METHAMPHETAMINES. 11/20/2017 [facility] Care Recommendation: This patient has had 5 or more Emergency Department visits in the last 12 months. Patient requires education on the scope and purpose of the ED as an acute care provider not a Primary Care Provider and should not be utilized for chronic conditions. If patient returns to ED please contact Community Health WorkerElizabeth at [phone]. These are guidelines and the provider should exercise clinical judgment when providing care. E.D. VISIT COUNT (12 MO.) 11 [facility] TOTAL 11 NOTE: Visits indicate total known visits. ED/UCC VISIT TRACKING (12 MO.) 06/24/2018 19:26 [facility] [place] TYPE: Emergency 06/22/2018 14:40 [facility] [place] TYPE: Emergency [...] - Nicotine dependence, unspecified, uncomplicated - Other superintendent container terminal (current) drug therapy - Allergy status to other antibiotic agents status - Essential (primary) hypertension - Epigastric pain - Major depressive disorder, single episode, unspecified 12/25/2017 14:40 [facility] [place] TYPE: Emergency COMPLAINT: - VOMITING DIAGNOSES: - Other care home (current) drug therapy - Ileus, unspecified - Chronic obstructive pulmonary disease, unspecified - Major depressive disorder, single episode, unspecified - Allergy status to other drugs, medicaments and biological substances status - Allergy status to other antibiotic agents status - Allergy status to narcotic agent status - Essential (primary) hypertension - Personal history of nicotine dependence 12/24/2017 19:[address] [facility] [place] TYPE: Emergency COMPLAINT: - VOMITING DIAGNOSES: - Essential (primary) hypertension - Allergy status to other drugs, medicaments and biological substances status - Nausea with vomiting, unspecified - Allergy status to other antibiotic agents status - Noninfective gastroenteritis and colitis, unspecified - Major depressive disorder, single episode, unspecified - Chronic obstructive pulmonary disease, unspecified - Other care home (current) drug therapy - Allergy status to narcotic agent status 11/18/2017 10:[address] [facility] [place] TYPE: Emergency COMPLAINT: - ABDOMINAL PAIN DIAGNOSES: - Essential (primary) hypertension - Unspecified abdominal pain - Nausea with vomiting, unspecified - Allergy status to other antibiotic agents status - Allergy status to other drugs, medicaments and biological substances status - Other care home (current) drug therapy - Allergy status to narcotic agent status - Obesity, unspecified 11/09/2017 13:[address] [facility] [place] TYPE: Emergency COMPLAINT: - ABDOMINAL PAIN DIAGNOSES: - Essential (primary) hypertension - Retention of urine, unspecified - Acquired absence of other specified parts of digestive tract - Left lower quadrant pain - Major depressive disorder, single episode, unspecified - Allergy status to other antibiotic agents status - Morbid (severe) obesity due to excess calories - Nicotine dependence, unspecified, uncomplicated - Other superintendent container terminal (current) drug therapy - Acquired absence of both cervix and uterus - Chronic obstructive pulmonary disease, unspecified - Unspecified abdominal pain - Right lower quadrant pain - Allergy status to narcotic agent status 11/05/2017 18:13 [facility] [place] TYPE: Emergency COMPLAINT: - PAIN [...] unspecified - Essential (primary) hypertension - Other care home (current) drug therapy - Major depressive disorder, [...] visits to display in this time frame [email or web address]
[2018-06-24] MEDS ORDERED: PERCOCET 5-3251 EACH PO (19:41)
== END 2018-06-24 21:09 | disposition home or self-care (01) ==
LOC: ED 19:24
DX: M25.552 Pain in left hip (principal); N39.0 Urinary tract infection, site not specified; F32.9 Major depressive disorder, single episode, unspecified; I10 Essential (primary) hypertension; J44.9 Chronic obstructive pulmonary disease, unspecified; Z87.891 Personal history of nicotine dependence; Z79.899 Other long term (current) drug therapy; Z88.1 Allergy status to other antibiotic agents; Z88.5 Allergy status to narcotic agent
CPT/HCPCS: 96372; 99283; J1885

== ENCOUNTER 2018-06-27 12:42 | Emergency (ER) | payer OTHER ==
[~2018-06-27] VITALS: Ht 162.6 cm; Wt 139.8 kg
--- OUTSIDE RECORDS SUMMARY | ~2018-06-27 | XMS | Encounter Summary ---
Demographics + + + | Address | [address] | | | [place] [address] | + + + | Home Phone | | + + + | Preferred Language | Unknown | + + + | Marital Status | Single | + + + | Latter-Day Affiliation | Unknown | + + + | Race | Unknown | + + + | Ethnic Group | Unknown | + + + Author + + + | Author | [facility] [employer] | + + + | Organization | [facility] | + + + | Address | Unknown | + + + | Phone | Unavailable | + + + Support + + +---------+ + | Name | Relationship | Address | Phone | + + +---------+ + | Kristel Teresa | ECON | Unknown | | + + +---------+ + Care Team Providers + +------+ + | Care Panel Assembler Name | Role | Phone | + +------+ + | Jaimie Monreal MD | PCP | | + +------+ + Reason for Visit +--------+ + | Reason | Comments | +--------+ + | Other | cancel injection | +--------+ + Encounter Details +--------+ + + + + | Date | Type | Department | Care Team | Description | +--------+ + + + + | 04/01/ | Telephone | [facility] | Lor Trujillo, MEDICAL OFFICE ASSISTANT INSTRUCTOR | Other (cancel | | 2018 | | [facility] | | injection ) | | | | MEDICINE [place] | | | | | | PAIN [address] | | | | | | [place] | | | | | | [address] | | | | | | [phone] | | | +--------+ + + + [...] [place] | | | | | | [address] | | | | | | | | +--------+---------+ + + + as of this encounter Visit Diagnoses Not on filein this encounter"
--- OUTSIDE RECORDS SUMMARY | ~2018-06-27 | XMS | Encounter Summary ---
Demographics + + + | Address | [address] | | | [place] [address] | + + + | Home Phone | | + + + | Preferred Language | Unknown | + + + | Marital Status | Single | + + + | Uatsdin Affiliation | Unknown | + + + | Race | Unknown | + + + | Ethnic Group | Unknown | + + + Author + + + | Author | [facility] [employer] | + + + | Organization | [facility] [employer] | + + + | Address | Unknown | + + + | Phone | Unavailable | + + + Support + + +---------+ + | Name | Relationship | Address | Phone | + + +---------+ + | Kristel Teresa | ECON | Unknown | | + + +---------+ + Care Team Providers + +------+ + | Care Apartment Maintenance Manager Name | Role | Phone | + +------+ + | Jaimie Monreal MD | PCP | | + +------+ + Reason for Visit Consultation (Routine) + + + + + + + | Status | Reason | Specialty | Diagnoses / | Referred By | Referred To | | | | | Procedures | Contact | Contact | + + + + + + + | Authorized | Specialty | Pain Medicine | Diagnoses | Margot, | Derick, | | | Services | - Pain | | Carmine S, | Xiang Storey, DO | | | Required | Medicine / | Radiculopath | [facility] [address] | [address] | | | | Dolorology | y of lumbar | [place]AC[place] | [address] | | | | | region | [address] | [place], [place] | | | | | Osteoarthrit | [place], [place] | [address] Phone: | | | | | is of lumbar | [address] | [phone] | | | | | spine, | Phone: | Fax: | | | | | unspecified | [phone] | [phone] | | | | | spinal | Fax: | | | | | | osteoarthrit | [phone] | | | | | | is | | | | | | | complication | | | | | | | status | | | | | | | Facet | | | | | | | arthropathy, | | | | | | | lumbar DDD | | | | | | | | | | | | | | (degenerativ | | | | | | | e disc | | | | | | | disease), | | | | | | | lumbar Hip | | | | | | | pain, | | | | | | | chronic, | | | | | | | left | | | + + + + + + + Encounter Details +--------+---------+ + + + | Date | Type | Department | Care Team | Description | +--------+---------+ + + + | 05/14/ | Office | [facility] | Xiang Sepulveda, | Radiculopathy of | | 2018 | Visit | [facility] | DO [address] | lumbar region | | | | [address] | [place] | (Primary Dx); Facet | | | | [place] | [address] | arthropathy, lumbar | | | | [address] | | ([facility]); | | | | [phone] | | Osteoarthritis of | | | | | | lumbar spine, | | | | | | unspecified spinal | | | | | | osteoarthritis | | | | | | complication status; | | | | | | Hip pain, chronic, | | | | | | left | +--------+---------+ + + + Social History [...] + + + as of this encounter Last Filed Vital Signs + + + + | Vital Sign | Reading | Time Taken | + + + + | Blood Pressure | 158/98 | 05/14/2018 12:55 PM PDT | + + + + | Pulse | 109 | 05/14/2018 12:55 PM PDT | + + + + | Temperature | - | - | + + + + | Respiratory Rate | - | - | + + + + | Oxygen Saturation | 95% | 05/14/2018 12:55 PM PDT | + + + + | Inhaled Oxygen | - | - | | Concentration | | | + + + + | Weight | 127.1 kg (280 lb 3.2 | 05/14/2018 12:55 PM PDT | | | oz) | | + + + + | Height | 162.6 cm (5' 4") | 05/14/2018 12:55 PM PDT | + + + + | Body Mass Index | 48.1 | 05/14/2018 12:55 PM PDT | + + + + in this encounter Progress Notes Xiang Sepulveda DO - 05/14/2018 1:00 PM PDTFormatting of this note may be different from the original. Patient returns for medication review and adjustment as deemed necessary for medical manage ment and insurance issues 58-year-old female seen back in yesterday for medication evaluation follow-up. Current medications and give her include Percocet 5/325 one po q8 hours patient does well on her current medication regime is bothered by the current smoky climate VS Stable; Alert and Oriented X 4 ; B&B Continent ; Sleep OK ; Appetite Good ; Skin In tact Current pain problems are being met with current medication regime including but not limited to analgesics, NSAIDS ,neuronal pathway modulators, and medication for improved sl eep and restfulness Current Outpatient Prescriptions: albuterol (VENTOLIN HFA) 108 (90 Base) MCG/ACT inhaler, Inhale 1 puff every 6 hours as needed for shortness of breath, Disp: , Rfl: Cyclobenzaprine HCl (FLEXERIL PO), Take by mouth as needed., Disp: , Rfl: desvenlafaxine (PRISTIQ) 50 MG 24 hr tablet, , Disp: , Rfl: furosemide (LASIX) 20 MG tablet, take 1 tablet by mouth once daily, Disp: , Rfl: losartan (COZAAR) 50 MG tablet, Take 50 mg by mouth daily., Disp: , Rfl: 1 omeprazole (PRILOSEC) 20 MG capsule, Take 20 mg by mouth., Disp: , Rfl: oxyCODONE-acetaminophen (PERCOCET) 5-325 MG per tablet, Take 1 tablet by mouth every 8 (eight) hours as needed for Pain for up to 30 days., Disp: 90 tablet, Rfl: 0 Turmeric 500 MG CAPS, Take 500 mg by mouth., Disp: , Rfl: Current Pain Level 2/10 Worst 7/10 Best /10 Past Medical History Diagnosis Date Arthritis bilateral shoulders Hypertension Other chronic pain ROS Unchanged from previous visit There were no vitals taken for this visit. HEENT : Unremarkable, PERRLA, EOMI Heart : HRRR LUNGS : Clear to auscultation bilateral post bases Abdomin : Soft, non tender, BS active X 4 Extremities : Warm and dry, negative edema, DP and PT pulses intact AROM BUE WFL ; MS 4/5 ; AROM BLE WFL, ;MS 4/5 DTR BUE's 2/4 : BLE,s KJ 2/4 , AJ 1/4 , Negative clonus Negative Babinski SLR negative Right Left AROM Cervical Spine WFL FLEX - EXTEN - SB - ROTATION Left - Right AROM Lumbosacral Spine WFL , SI Joints Left - Right tender Standing Flexion positive : Seated Flexion negative Gait - Improved Functional Status for Ag e Including ADL's, Mobility and Transfers where appropriate Assistive Devices : LAB REVIEWED Available No visits with results within 1 Month(s) from this visit. Latest known visit with results is: No results found for any previous visit. ] XRAYS REVIEWED Available No results found. IMPRESSION : Chronic pain syndrome, chronic low back pain, degenerative joint disease multi ple joints multiple sites PLAN : Continue current medication regime with these changes and/ or additions : Refill he r Percocet 5/325 one po q8 hours prn pain Patient understands and is in full agreement with the above plan, Will return to office in 4 weeks, [facility] SPECIALIST was consulted and appears appropriate, Urine Toxicology screen is pending, Current Morphine milligram equivalents is 23 mg a day FOLLOW UP : -4 WEEKS Responsible narcotic and sedative use was discussed [...] are noted in men and women. Ma wy men will suffer erectile dysfunction with these [...] and complications with the passage of time. cyber engineer use is also associated with depressions, and liver and renal failure. Finally, these medicines are associated with both physical and emotional addiction and can be difficult to stop after taking for only a few weeks. in this encounter Plan of Treatment +--------+---------+ + + + | Date | Type | Specialty | Care Team | Description | +--------+---------+ + + + | 07/14/ | Office | Dolorology | Xiang Sepulveda, | | | 2017 | Visit | | DO [address] | | | | | | [place] | | | | | | [address] | | | | | | | | +--------+---------+ + + + as of this encounter Visit Diagnoses + + | Diagnosis | + + | Radiculopathy of lumbar region - Primary | + + | Thoracic or lumbosacral neuritis or radiculitis, unspecified | + + | Facet arthropathy, lumbar | + + | Lumbosacral spondylosis without myelopathy | + + | Osteoarthritis of lumbar spine, unspecified spinal osteoarthritis complication status | + + | Hip pain, chronic, left | + +
--- OUTSIDE RECORDS SUMMARY | ~2018-06-27 | XMS | Clinical Summary ---
Demographics + + + | Address | [address] | | | [place] [address] | + + + | Home Phone | | + + + | Preferred Language | Unknown | + + + | Marital Status | Single | + + + | Baptism Affiliation | Unknown | + + + | Race | Unknown | + + + | Ethnic Group | Unknown | + + + Author + + + | Author | [facility] [employer] | + + + | Organization | [facility] [employer] | + + + | Address | Unknown | + + + | Phone | Unavailable | + + + Support + + +---------+ + | Name | Relationship | Address | Phone | + + +---------+ + | Kristel Teresa | ECON | Unknown | | + + +---------+ + Care Team Providers + +------+ + | Care Collar Fuser Name | Role | Phone | + +------+ + | Jaimie Monreal MD | PP | | + +------+ + Allergies + + + + + + | Active Allergy | Reactions | Severity | Noted | Comments | | | | | Date | | + + + + + + | Atorvastatin | Hives, Rash | High | 10/09/19 | | | | | | 18 | | + + + + + + | Morphine | Hives, Nausea and | High | 10/09/19 | | | | Vomiting, Rash | | 18 | | + + + + + + Current Medications + + +--------+---------+------+------+-------+ | Prescription | Sig. | Disp. | Refills | Star | End | Statu | | | | | | t | Date | s | | | | | | Date | | | + + +--------+---------+------+------+-------+ | omeprazole | Take 20 mg by mouth. | | | | | Activ | | (PRILOSEC) 20 MG | | | | | | e | | capsule | | | | | | | + + +--------+---------+------+------+-------+ | furosemide (LASIX) | take 1 tablet by | | | 11/2 | | Activ | | 20 MG tablet | mouth once daily | | | 20 | | e | | | | | | 17 | | | + + +--------+---------+------+------+-------+ | losartan (COZAAR) | Take 50 mg by mouth | | 1 | 01/0 | | Activ | | 50 MG tablet | daily. | | | 4/20 | | e | | | | | | 18 | | | + + +--------+---------+------+------+-------+ | albuterol | Inhale 1 puff every | | | 09/1 | | Activ | | (VENTOLIN HFA) 108 | 6 hours as needed | | | 4/20 | | e | | (90 Base) MCG/ACT | for shortness of | | | 12 | | | | inhaler | breath | | | | | | + + +--------+---------+------+------+-------+ | desvenlafaxine | | | | 12/3 | | Activ | | (PRISTIQ) 50 MG 24 | | | | 0/20 | | e | | hr tablet | | | | 17 | | | + + +--------+---------+------+------+-------+ | Cyclobenzaprine | Take by mouth as | | | | | Activ | | HCl (FLEXERIL PO) | needed. | | | | | e | + + +--------+---------+------+------+-------+ | Turmeric 500 MG | Take 500 mg by | | | | | Activ | | CAPS | mouth. | | | | | e | + + +--------+---------+------+------+-------+ | | Take 1 tablet by | 90 | 0 | 09/1 | 10/1 | Activ | | oxyCODONE-acetaminop | mouth every 8 | tablet | | 3/20 | 3/20 | e | | hen (PERCOCET) 5-325 | (eight) hours as | | | 18 | 18 | | | MG per tablet | needed for Pain for | | | | | | | | up to 30 days. | | | | | | + + +--------+---------+------+------+-------+ | | Take 1 tablet by | 90 | 0 | 08/1 | 09/1 | Disco | | oxyCODONE-acetaminop | mouth every 8 | tablet | | 5/20 | 3/20 | ntinu | | hen (PERCOCET) 5-325 | (eight) hours as | | | 18 | 18 | ed | | MG per tablet | needed for Pain for | | | | | | | | up to 30 days. | | | | | | + + +--------+---------+------+------+-------+ Active Problems + + + | Problem | Noted Date | + + + | Decreased range of motion of hip | 12/04/2017 | + + + | Hip pain, chronic, left | 12/04/2017 | + + + | Radiculopathy of lumbar region | 10/09/2017 | + + + | Difficulty walking | 10/09/2017 | + + + | DDD (degenerative disc disease), lumbar | 10/09/2017 | + + + | Facet arthropathy, lumbar | 10/09/2017 | + + + | Osteoarthritis of lumbar spine | 10/09/2017 | + + + Encounters +--------+ + + + + | Date | Type | Specialty | Care Team | Description | +--------+ + + + + | 06/12/ | Office | | Xiang Sepulveda, | Radiculopathy of | | 2017 | Visit | | DO | lumbar region | | | | | | (Primary Dx); Facet | | | | | | arthropathy, lumbar | | | | | | (HCC); | | | | | | Osteoarthritis of | | | | | | lumbar spine, | | | | | | unspecified spinal | | | | | | osteoarthritis | | | | | | complication status; | | | | | | Hip pain, chronic, | | | | | | left | +--------+ + + + + | 05/14/ | Office | | Xiang Sepulveda, | Radiculopathy of | | 2017 | Visit | | DO | lumbar region | | | | | | (Primary Dx); Facet | | | | | | arthropathy, lumbar | | | | | | (HCC); | | | | | | Osteoarthritis of | | | | | | lumbar spine, | | | | | | unspecified spinal | | | | | | osteoarthritis | | | | | | complication status; | | | | | | Hip pain, chronic, | | | | | | left | +--------+ + + + + | 04/16/ | Office | | Xiang Sepulveda, | Radiculopathy of | | 2017 | Visit | | DO | lumbar region | | | | | | (Primary Dx); Facet | | | | | | arthropathy, lumbar | | | | | | (HCC); | | | | | | Osteoarthritis of | | | | | | lumbar spine, | | | | | | unspecified spinal | | | | | | osteoarthritis | | | | | | complication status; | | | | | | Hip pain, chronic, | | | | | | left | +--------+ + + + + | 04/03/ | Telephone | | Lor Trujillo CMA | | | 2017 | | | | | +--------+ + + + + | 04/01/ | Telephone | | Lor Trujillo, PROFESSIONAL NURSING TUTOR | Other (cancel | | 2018 | | | | injection ) | +--------+ + + + + from [...] +------+ + + Social History + +-------+ +--------+ [...] + + + | Blood Pressure | 197/100 | 06/12/2018 7:58 AM PDT | + + + + | Pulse | 103 | 06/12/2018 7:58 AM PDT | + + + + | Temperature | - | - | + + + + | Respiratory Rate | 18 | 06/12/2018 7:58 AM PDT | + + + + | Oxygen Saturation | 96% | 06/12/2018 7:58 AM PDT | + + + + | Inhaled Oxygen | - | - | | Concentration | | | + + + + | Weight | 129.7 kg (286 lb) | 06/12/2018 7:58 AM PDT | + + + + | Height | 162.6 cm (5' 4") | 06/12/2018 7:58 AM PDT | + + + + | Body Mass Index | 49.09 | 06/12/2018 7:58 AM PDT | + + + + Plan of Treatment +--------+---------+ + + + | Date | Type | Specialty | Care Team | Description | +--------+---------+ + + + | 07/14/ | Office | | Xiang Sepulveda, | | | 2018 | Visit | | DO [address] | | | | | | [place] | | | | | | [phone] | | | | | | | | +--------+---------+ + + + + + + + + | Health Maintenance | Due Date | Last Done | Comments | + + + + + | Vaccine: | | | | | Dtap/Tdap/Td (1 - | 8 | | | | Tdap) | | | | + + + + + | Vaccine: | | | | | Pneumococcal 19-64 | 8 | | | | (PPSV23 only) Medium | | | | | Risk (1 of 1 - | | | | | PPSV23) | | | | + + + + + | Cervical Cancer | | | | | Screening (Pap) | 9 | | | + + + + + | Breast Cancer | | | | | Screening | 9 | | | | (Mammogram) | | | | + + + + + | Colon Cancer | | | | | Screening | 9 | | | | (Colonoscopy) | | | | + + + + + | Vaccine: Influenza | | | | | (#1) | 8 | | | + + + + + Results Not on filefrom Last 3 Months Insurance + +--------+ +------+-------+ + | Payer | Benefi | Subscriber | Type | Phone | Address | | | t Plan | ID | | | | | | / | | | | | | | Group | | | | | + +--------+ +------+-------+ + | MEDICAID | [employer] | [id number] | | | [address] | | | N | | | | [place], [place] | | | [place] | | | | [address] | | | HUMAN RESOURCES OPERATIONS COORDINATOR | | | | | + +--------+ +------+-------+ + + +--------+ +--------+ + + | Guarantor Name | Accoun | Relation to | Date | Phone | Billing Address | | | t Type | Patient | of | | | | | | | | | | + +--------+ +--------+ + + | SHELBY GALDAMEZ | Person | Self [birth year] Home: | [address] | | | al/Fam | | [phone] | [phone] | [place] | | | gigi | | | [phone] | [phone] | + +--------+ +--------+ + +
--- OUTSIDE RECORDS SUMMARY | ~2018-06-27 | XMS | Clinical Summary ---
Demographics + + + | Address | [address] | | | [place] [address] | + + + | Home Phone | | + + + | Preferred Language | Unknown | + + + | Marital Status | Single | + + + | Evangelical Affiliation | Unknown | + + + | Race | Unknown | + + + | Ethnic Group | Unknown | + + + Author + + + | Author | [facility] [employer] | + + + | Organization | [facility] [employer] | + + + | Address | Unknown | + + + | Phone | Unavailable | + + + Support + + +---------+ + | Name | Relationship | Address | Phone | + + +---------+ + | Kristel Teresa | ECON | Unknown | | + + +---------+ + Care Team Providers + +------+ + | Care Fluid Power Mechanic Name | Role | Phone | + [...] 04/01/ | Telephone | | Lor Trujillo, CERTIFIED TUMOR REGISTRAR | Other (cancel | | 2018 | [...] [place] | | | | | | [phone] | | | | | | | [...] +------+-------+ + | MEDICAID | [employer] | [id number] | | | [address] | | | N | | | | [place], [place] | | | [place] | | | | [address] | | | POLICE SUPERINTENDENT | | | | | + +--------+ [...] Self | [birth year] | Home: | [address] | | | al/Fam | | [phone] | [phone] | [place] | | | [place] | | | [phone] | + +--------+ +--------+ + +
--- OUTSIDE RECORDS SUMMARY | ~2018-06-27 | XMS | Encounter Summary ---
Demographics + + + | Address | [address] | | | [place] [address] | + + + | Home Phone | | + + + | Preferred Language | Unknown | + + + | Marital Status | Single | + + + | Scientology Affiliation | Unknown | + + + | Race | Unknown | + + + | Ethnic Group | Unknown | + + + Author + + + | Author | [facility] [employer] | + + + | Organization | [facility] [facility] | + + + | Address | Unknown | + + + | Phone | Unavailable | + + + Support + + +---------+ + | Name | Relationship | Address | Phone | + + +---------+ + | Kristel Teresa | ECON | Unknown | | + + +---------+ + Care Team Providers + +------+ + | Care Foreign Banknote Teller Name | Role | Phone | + +------+ + | Jaimie Monreal MD | PCP | | + +------+ + Reason for Visit + + + | Reason | Comments | + + + | Follow-up | | + + + Consultation (Routine) + + + + + [...] Services | - Pain | | Carmine Barnard, | Xiang Storey DO | | | Required | Medicine / | Radiculopath | RETAIL OFFICE MANAGER [address] | | | | Dolorology | y of lumbar | [address] | [address] | | | | | region | [place] | [place] | | | | | Osteoarthrit | [place], [place] | [address] Phone: | | | | | is of lumbar | [address] | [phone] | | | | | spine, | Phone: | Fax: | | | | | unspecified | [phone] | [phone] | | | | | spinal | Fax: | | | | | | osteoarthrit | [phone] | | | | | | is [...] Description | +--------+---------+ + + + | 04/16/ | Office | [facility] | AugieXiang murray, | Radiculopathy of | | 2018 | Visit [facility] | DO [address] | lumbar region | | | | [address] | [place], [place] | (Primary Dx); Facet | | | | [place], [place] | [id number] | arthropathy, lumbar | | | | [address] | | (HCC); | | | | [phone] | | Osteoarthritis of | | | [...] + + + | Blood Pressure | 150/100 | 04/16/2018 11:13 AM PDT | + + + + | Pulse | 121 | 04/16/2018 11:13 AM PDT | + + + + | Temperature | - | - | + + + + | Respiratory Rate | 20 | 04/16/2018 11:13 AM PDT | + + + + | Oxygen Saturation | 99% | 04/16/2018 11:13 AM PDT | + + + + | Inhaled Oxygen | - | - | | Concentration | | | + + + + | Weight | 126.1 kg (278 lb) | 04/16/2018 11:13 AM PDT | + + + + | Height | 162.6 cm (5' 4") | 04/16/2018 11:13 AM PDT | + + + + | Body Mass Index | 47.72 | 04/16/2018 11:13 AM PDT | + + + + in this encounter Progress Notes Xiang Sepulveda DO - 04/16/2018 11:20 AM PDTFormatting of this note may be different from the original. Patient returns for medication review and adjustment as deemed necessary for medical manage ment and insurance issues 58-year-old female seen back in the office today for medication evaluation follow-up. Dariusz nt medications that were given include Percocet 5/325 one po q8 hours, VS Stable; Alert and Oriented X 4 [...] chronic pain ROS Unchanged from previous visit BP (!) 150/100 (BP Location: Left upper arm, Patient Position: Sitting) | Pulse 121 | Res p 20 | Ht 1.626 m (5' 4") | Wt 126.1 kg (278 lb) | SpO2 99% | BMI 47.72 kg/m HEENT : Unremarkable, PERRLA, EOMI Heart : HRRR LUNGS : Decreased breath sounds bilateral posterior bases Abdomin : Soft, non tender, BS active X 4 obese Extremities : Warm and dry, Edema BLE's , DP and PT pulses decreased AROM BUE WFL ; MS 4/5 ; AROM BLE WFL, ;MS 4/5 DTR BUE's 2/ : BLE,s KJ 2/4 , AJ 10/03 , Negative clonus Negative Babinski SLR negative Right Left AROM Cervical Spine WFL FLEX - EXTEN - SB - ROTATION Left - Right AROM Lumbosacral Spine WFL , SI Joints Left - Right tender Standing Flexion positive : Seated Flexion negative Gait - limited to short distances with a roller walker Improved Functional Status for Age Including ADL's, Mobility and Transfers whe re appropriate Assistive Devices : Uses a roller walker for extended distances LAB REVIEWED Available No visits with results within 1 Month(s) from this visit. Latest known visit with results is: No results found for any previous visit. ] XRAYS REVIEWED Available No results found. IMPRESSION : Chronic pain syndrome, chronic low back pain, past medical history as outlined above PLAN : Continue current medication regime with these changes and/ or additions : Refill he r Percocet 5/325 one po q8 hours, Patient understands and is in full agreement with the above plan, Will return to office in 4 weeks, [facility] was consulted and appears appropriate, Urine Toxicology scre en is pending, Current Morphine milligram equivalents is [...] and complications with the passage of time. research program assistant use is also associated with depressions, and [...] | | | | | [place] | | | | | | [address] | | | | | | | [...]
--- OUTSIDE RECORDS SUMMARY | ~2018-06-27 | XMS | Clinical Summary ---
Demographics + + + | Address | [address] | | | [place] [address] | + + + | Home Phone [...] Team Providers + +------+ + | Care Bead Wrapper Name | Role | Phone | + +------+ + | Travis Mcginnis MD | PP | Unavailable | + +------+ + Source Comments LION is fully live on both [facility] and [facility] Allergies + + + + + [...] | | + + + +---------+------+------+-------+ | Staples-3 Fatty | Take by mouth. | | [...]
--- OUTSIDE RECORDS SUMMARY | ~2018-06-27 | XMS | Clinical Summary ---
Demographics + + + | Address | [address] | | | [place] [address] | + + + | Home Phone [...] Team Providers + +------+ + | Care Silo Painter Name | Role | Phone | + +------+ + | Travis Mcginnis MD | PP | Unavailable | + +------+ + Source Comments [facility] and [facility] Allergies + + + + [...] | | + + + +---------+------+------+-------+ | Watson-3 Fatty | Take by mouth. | | [...]
--- OUTSIDE RECORDS SUMMARY | ~2018-06-27 | XMS | Encounter Summary ---
Demographics + + + | Address | [address] | | | [place] [address] | + + + | Home Phone | | + + + | Preferred Language | Unknown | + + + | Marital Status | Single | + + + | Catholic Affiliation | Unknown | + + + | Race | Unknown | + + + | Ethnic Group | Unknown | + + + Author + + + | Author | [facility] [employer] | + + + | Organization | [facility] | + + + | Address | Unknown | + + + | Phone | Unavailable | + + + Support + + +---------+ + | Name | Relationship | Address | Phone | + + +---------+ + | Kristel Teresa | ECON | Unknown | | + + +---------+ + Care Team Providers + +------+ + | Care Tube Molder Fiberglass Name | Role | Phone | + [...] + + | 04/01/ | Telephone | [facility] | Lor Trujillo, OVEN BUILDER | Other (cancel | | 2018 | | [facility] | | injection ) | | | | MEDICINE [facility] | | | | | | PAIN [address] | | | | | | [place] | | | | | | [address] | | | | | | [phone] | | | +--------+ + + + [...] [place] | | | | | | [address] | | | | | | | | +--------+---------+ + + + as of this encounter Visit Diagnoses Not on filein this encounter"
--- OUTSIDE RECORDS SUMMARY | ~2018-06-27 | XMS | Encounter Summary ---
Demographics + + + | Address | [address] | | | [place] [address] | + + + | Home Phone | | + + + | Preferred Language | Unknown | + + + | Marital Status | Single | + + + | Synagogue Affiliation | Unknown | + + + | Race | Unknown | + + + | Ethnic Group | Unknown | + + + Author + + + | Author | [facility] | + + + | Organization | [facility] | + + + | Address | Unknown | + + + | Phone | Unavailable | + + + Support + + +---------+ + | Name | Relationship | Address | Phone | + + +---------+ + | Kristel Teresa | ECON | Unknown | | + + +---------+ + Care Team Providers + +------+ + | Care Carrot Tier Name | Role | Phone | + +------+ + | Jaimie Monreal MD | PCP | | + +------+ + Encounter Details +--------+ + + + + | Date | Type | Department | Care Team | Description | +--------+ + + + + | 04/03/ | Telephone | [facility] | Lor Trujillo, TRUMPET PLAYER | | | 2017 | | ORTHO SPORTS | | | | | | MEDICINE [place] | | | | | | PAIN [address] | | | | | | [place] | | | | | | [address] | | | | | | [phone] | | | +--------+ + + + [...]
--- OUTSIDE RECORDS SUMMARY | ~2018-06-27 | XMS | Clinical Summary ---
Demographics + + + | Address | [address] | | | [address] | | | [place] [address] | + + + | Home Phone | | + + + | Preferred Language | Unknown | + + + | Marital Status | | + + + | Protestant Affiliation | 1076 | + + + [...] [place] | | | | | [address] | | + + + + + | Casandra Smith | ECON | [address] | | | | | [place] | | + + + + + Care Team Providers + +------+ + | Care Regional Hr Manager Name | Role | Phone | [...] Morbid obesity with BMI of 50.0-59.9, adult ([facility]) | 11/25/2016 | + + + | ABDOMINAL PAIN-GENERALIZED | 03/06/2012 | + + + | Obstructive sleep apnea | 06/21/2011 | + + + | Disorder of function of stomach | 10/26/2008 | + + + + + | Overview: Overview: N/V and abdominal pain. Seen Hood Sommer | | [facility] Colonoscopy 11/02/08diverticulosis sigmoid and | [...] | YAMILA DRISCOLL | | 08/15/ | [id number] | | - [id number]: Qty: 1 | | | INCORPORATE | | 2018 | / | | on 11/25/2016 by Rustam Schmid | | Ureter | D | | | /[id number] | | GMD | | | | [...] | [employer] | [employer] | [id number] | Medica | [phone] | | [...] | | | gigi | | | [address]27 | [place] [phone] | + +--------+ +--------+ + +
--- OUTSIDE RECORDS SUMMARY | ~2018-06-27 | XMS | Encounter Summary ---
Demographics + + + | Address | [address] | | | [place] [address] | + + + | Home Phone [...] + + + | Author | [facility] | + + + | Organization | [facility] | + + + | Address | Unknown | + + + | Phone | Unavailable | + + + Support + + +---------+ + | Name | Relationship | Address | Phone | + + +---------+ + | Kristel Teresa | ECON | Unknown | | + + +---------+ + Care Team Providers + +------+ + | Care Display Manager Name | Role | Phone | [...] Required | Medicine / | Radiculopath | HIGHWAY RESEARCH ENGINEER [address] | [address] | | | | Dolorology | y of lumbar | [address]ACES | DR [address] | | | | | region | [place] [address] | [place], [place] | | | | | Osteoarthrit | [place], [place] | [address] Phone: | | | | | is of lumbar | [address] | [phone] | | | | | spine, | Phone: | Fax: | | | | | unspecified | [phone] | [phone] | | | | | spinal | Fax: | | | | | | osteoarthrit | [phone] | | | | | | is [...] + + | 05/14/ | Office | [facility] | Xiang Sepulveda, | Radiculopathy of | | 2018 | Visit | [facility] | DO [address] | lumbar region | | | | [address] | [place] | (Primary Dx); Facet | | | | [place] | [address] | arthropathy, lumbar | | | | [address] | | ([facility]); | | | | [phone] | | Osteoarthritis of | | | [...] to office in 4 weeks, [facility] SPLIT[facility] was consulted and appears appropriate, Urine Toxicology [...] are noted in men and women. [place] men will suffer erectile dysfunction with these [...] and complications with the passage of time. rn long term care use is also associated with depressions, and [...] | | | | | [place] | | | | | | [address] | | | | | | | [...]
--- OUTSIDE RECORDS SUMMARY | ~2018-06-27 | XMS | Encounter Summary ---
Demographics + + + | Address | [address] | | | [place] [address] | + + + | Home Phone [...] + + + | Author | [facility] | + + + | Organization | [facility] | + + + | Address | Unknown | + + + | Phone | Unavailable | + + + Support + + +---------+ + | Name | Relationship | Address | Phone | + + +---------+ + | Kristel Teresa | ECON | Unknown | | + + +---------+ + Care Team Providers + +------+ + | Care Dialysis Equipment Technician Name | Role | Phone | [...] Required | Medicine / | Radiculopath | TOOL REPAIR TECHNICIAN [address] | [address] | | | | Dolorology | y of lumbar | [address] | DR CARRERA | | | | | region | [place] | [place] | | | | | Osteoarthrit | [place], [place] | [address] Phone: | | | | | is of lumbar | [address] | [phone] | | | | | spine, | Phone: | Fax: | | | | | unspecified | [phone] | [phone] | | | | | spinal | Fax: | | | | | | osteoarthrit | [phone] | | | | | | is [...] + + | 06/12/ | Office | [facility] | AugieXiang murray, | Radiculopathy of | | 2018 | Visit | [facility] | DO [address] | lumbar region | | | | [address] | [place], [place] | (Primary Dx); Facet | | | | [place], [place] | [id number] | arthropathy, lumbar | | | | [address] | | (HCC); | | | | [phone] | | Osteoarthritis of | | | [...] 2/4 : BLE,s KJ 2/4 , AJ 1/ , Negative clonus Negative Babinski SLR negative [...] Will return to office in 4 weeks, [facility] was consulted and appears appropriate, Urine [...] and complications with the passage of time. long term care pharmacist use is also associated with depressions, and [...] | | | | | [place], [place] | | | | | | [address] | | | | | | | [...]
--- OUTSIDE RECORDS SUMMARY | ~2018-06-27 | XMS | Encounter Summary ---
Demographics + + + | Address | [address] | | | [place] [address] | + + + | Home Phone | | + + + | Preferred Language | Unknown | + + + | Marital Status | Single | + + + | Cheondoism Affiliation | Unknown | + + + | Race | Unknown | + + + | Ethnic Group | Unknown | + + + Author + + + | Author | [facility] [employer] [facility] [facility] | + + + | Organization | [facility] | + + + | Address | Unknown | + + + | Phone | Unavailable | + + + Support + + +---------+ + | Name | Relationship | Address | Phone | + + +---------+ + | Kristel Teresa | ECON | Unknown | | + + +---------+ + Care Team Providers + +------+ + | Care Tie Knitter Helper Name | Role | Phone | [...] Required | Medicine / | Radiculopath | SCHOOL SUPERINTENDENT [address] | [address] | | | | Dolorology | y of lumbar | [address] | DR C[address]ERA | | | | | region | [place] | [place] | | | | | Osteoarthrit | [place], [place] | [address] Phone: | | | | | is of lumbar | [address] | [phone] | | | | | spine, | Phone: | Fax: | | | | | unspecified | [phone] | [phone] | | | | | spinal | Fax: | | | | | | osteoarthrit | [phone] | | | | | | is [...] + + | 04/16/ | Office | [facility] | AugieXiang murray, | Radiculopathy of | | 2018 | Visit | [facility] | DO [address] | lumbar region | | | | [address] | [place], [place] | (Primary Dx); Facet | | | | [place], [place] | [id number] | arthropathy, lumbar | | | | [address] | | (HCC); | | | | [phone] | | Osteoarthritis of | | | [...] Will return to office in 4 weeks, [facility] was consulted and appears appropriate, [...] complications with the passage of time. termite treater helper use is also associated with depressions, and [...] | | | | | [place] | | | | | | [address] | | | | | | | [...]
--- OUTSIDE RECORDS SUMMARY | ~2018-06-27 | XMS | Encounter Summary ---
Demographics + + + | Address | [address] | | | [place] [address] | + + + | Home Phone | | + + + | Preferred Language | Unknown | + + + | Marital Status | Single | + + + | Confucianist Affiliation | Unknown | + + + | Race | Unknown | + + + | Ethnic Group | Unknown | + + + Author + + + | Author | [facility] [employer] [facility] | + + + | Organization | [facility] | + + + | Address | Unknown | + + + | Phone | Unavailable | + + + Support + + +---------+ + | Name | Relationship | Address | Phone | + + +---------+ + | Kristel Teresa | ECON | Unknown | | + + +---------+ + Care Team Providers + +------+ + | Care Director Electrical Engineering Name | Role | Phone | + [...] Required | Medicine / | Radiculopath | STAFF EDUCATOR [address] | [address] | | | | Dolorology | y of lumbar | [address] | DR CARRERA | | | | | region | [place] | [place] | | | | | Osteoarthrit | [place], [place] | [address] Phone: | | | | | is of lumbar | [address] | [phone] | | | | | spine, | Phone: | Fax: | | | | | unspecified | [phone] | [phone] | | | | | spinal | Fax: | | | | | | osteoarthrit | [phone] | | | | | | is [...] + + | 06/12/ | Office | [facility] | AugieXiang murrya, | Radiculopathy of | | 2018 | Visit | [facility] | DO [address] | lumbar region | | | | [address] | [place], [place] | (Primary Dx); Facet | | | | [place], [place] | [id number] | arthropathy, lumbar | | | | [address] | | (HCC); | | | | [phone] | | Osteoarthritis of | | | [...] Will return to office in 4 weeks, [facility] was consulted and appears appropriate, Urine Toxicology [...] with the passage of time. termite treater use is also associated with depressions, and [...] | | | | | [place], [place] | | | | | | [address] | | | | | | | [...]
--- OUTSIDE RECORDS SUMMARY | ~2018-06-27 | XMS | Clinical Summary ---
Demographics + + + | Address | [address] | | | [address] | | | [place] [address] | + + + | Home Phone | | + + + | Preferred Language | Unknown | + + + | Marital Status | | + + + | Religion Affiliation | 1076 | + + + [...] [place] | | | | | [address] | | + + + + + | Casandra Smith | ECON | [address] | | | | | [place] | | + + + + + Care Team Providers + +------+ + | Care Business Rules Developer Name | Role | Phone | [...] Morbid obesity with BMI of 50.0-59.9, adult ([facility]) | 11/25/2016 | + + + | ABDOMINAL PAIN-GENERALIZED | 03/06/2012 | + + + | Obstructive sleep apnea | 06/21/2011 | + + + | Disorder of function of stomach | 10/26/2008 | + + + + + | Overview: Overview: N/V and abdominal pain. Seen Hood Sommer | | [facility] Colonoscopy 11/02/08diverticulosis sigmoid and | | [...] | YAMILA DRISCOLL | | 08/15/ | [id number] | | - [id number]: Qty: 1 | | | INCORPORATE | | 2018 | / | | on 11/25/2016 by Rustam Schmid | | Ureter | D | | | /[id number] | | GMD | | | | [...] | [employer] | [employer] | [id number] | Medica | [phone] | | [...] | | | gigi | | | [address] | [place] [address] | + +--------+ +--------+ + +
--- OUTSIDE RECORDS SUMMARY | ~2018-06-27 | XMS | Encounter Summary ---
Demographics + + + | Address | [address] | | | [place] [address] | + + + | Home Phone [...] + + + | Author | [facility] [employer] [facility] | + + + | Organization | [facility] [employer] [facility] [employer] [facility] | + + + | Address | Unknown | + + + | Phone | Unavailable | + + + Support + + +---------+ + | Name | Relationship | Address | Phone | + + +---------+ + | Kristel Teresa | ECON | Unknown | | + + +---------+ + Care Team Providers + +------+ + | Care Channeler Insole Name | Role | Phone | + +------+ + | Jaimie Monreal MD | PCP | | + +------+ + Encounter Details +--------+ + + + + | Date | Type | Department | Care Team | Description | +--------+ + + + + | 04/03/ | Telephone | [facility] | Lor Trujillo, SUPERINTENDENT TRANSPORTATION | | | 2017 | | ORTHO SPORTS | | | | | | MEDICINE [place] | | | | | | PAIN [address] | | | | | | [place] | | | | | | [address] | | | | | | [phone] | | | +--------+ + + + [...]
--- OUTSIDE RECORDS SUMMARY | 2018-06-27 12:46 | XMS ---
PreManage Notification: CHASTITY BONILLA Security Fire Operations Forester Events 1 event(s) in the past 18 months Most recent security events: Verbal at [facility] 06/24/2018 19:26 - Patient was verbally abusive towards care providers, staff or patient. Details: PATIENT IS VERBALLY ABUSIVE TOWARDS STAFF AND RN IMAGING CRITERIA MET - Group Notification - [facility] - Has Care Guidelines - [facility] - 2 Visits in 30 Days CARE PROVIDERS VINCENT, [facility] 06/23/2018-Mihai RANDHAWA PHONE: Unknown EDIS PORRAS Primary [facility] Emergency Department 08/30/2017-Current PHONE: [phone] Eyad Vicente MD PHONE: Unknown Guidelines Source: [facility] Guidelines Date: 01/22/2018 Care Coordination: PATIENT HAS NEW PCP - EDIS PORRAS AT [place], [place]. PATIENT WAS DISCHARGED FROM PAIN CONTRACT [...] SERVICES TO SEE PATIENT. Care History Medical/Surgical 06/25/[address] [facility] - Pain Clinic Management- [facility]- Dr Bess Pain Management PCP. - Provider will discuss with patient about fdc placement. - PATIENT HAS A PCP APT @ 1:00 06/25/18. - PATIENT IS CURRENTLY PRESCRIBED 5/235 PERCOCET FOR EVERY 8 HOURS PER PAIN MANAGEMENT CLINIC. 06/24/[address] [facility] - PATIENT CALLED PCP OFFICE ON 06/23 [...] CAUTIOUS PATIENT TESTS POSITIVE FOR METHAMPHETAMINES. 11/20/[address] [facility] Care Recommendation: This patient has had 5 or more Emergency Department visits in the last 12 months. Patient requires education on the scope and purpose of the ED as an acute care provider not a Primary Care Provider and should not be utilized for chronic conditions. If patient returns to ED please contact Community Health WorkerElizabeth at [phone]. These are guidelines and the provider should exercise clinical judgment when providing care. Social 12/26/[address] [facility] - Patient has been discharged from [facility] services due to not following through with any help and or services. - Patient admits to marijuana usage, please take this into consideration when providing treatment for nausea/stomach upset (clinical judgement) - Patient currently receives caregivers through [facility]- [facility] case technician is Willa. Substance Use/Overdose 11/27/[address] [facility] UPDATE BY PCP: PATIENT HAS FAILED 3 DRUG SCREENS INCLUDING POSITIVE FOR METHAMPHETAMINESIN A ROW AT PCP CLINIC. USE CAUTION WHEN GIVING NARCOTICS. AVOID HOME RX FOR NARCOTICS. CALL [facility] [phone] FOR RECOMMENDATIONS ON PAIN MEDS 10/24/[address] [facility] PT HAS HISTORY OF DRUG SEEKING BEHAVIOR. UNDER PAIN CONTRACT WITH PCP. PT DID NOT PASS RECENT RANDOM DRUG SCREEN WITH PCP. E.D. VISIT COUNT (12 MO.) 10 [facility]. TOTAL 10 NOTE: Visits indicate total known visits. ED/UCC VISIT TRACKING (12 MO.) 06/27/2018 12:42 [facility] [place] TYPE: Emergency COMPLAINT: - FLANK PAIN 06/24/2018 19:26 [facility] [place] TYPE: Emergency DIAGNOSES: - Other long term care pharmacist (current) drug therapy - Allergy status to other antibiotic agents status - Major depressive disorder, single episode, unspecified - Personal history of nicotine dependence - Chronic obstructive pulmonary disease, unspecified - Essential (primary) hypertension - Pain in left hip - Allergy status to narcotic agent status - Urinary tract infection, site not specified 06/22/2018 14:40 [facility] [place] TYPE: Emergency COMPLAINT: - L KIDNEY PAIN DIAGNOSES: - Low back pain - Allergy status to narcotic agent status - Allergy status to other drugs, medicaments and biological substances status - Other mcfp (current) drug therapy - Chronic obstructive pulmonary disease, unspecified - Essential (primary) hypertension - intermediate frame tender (current) use of inhaled steroids - Allergy status to other antibiotic agents status - Urinary tract infection, site not specified - Nicotine dependence, unspecified, uncomplicated - Major depressive disorder, single episode, unspecified - Other stimulant abuse, uncomplicated 01/15/2018 05:31 [facility] [place] TYPE: Emergency [...] - Nicotine dependence, unspecified, uncomplicated - Other mcfp (current) drug therapy - Allergy status to other antibiotic agents status - Essential (primary) hypertension - Epigastric pain - Major depressive disorder, single episode, unspecified 12/25/2017 14:40 [facility] [place] TYPE: Emergency COMPLAINT: - VOMITING DIAGNOSES: - Other mcfp (current) drug therapy - Ileus, unspecified - [...] Chronic obstructive pulmonary disease, unspecified - Other mcfp (current) drug therapy - Allergy status to narcotic agent status 11/18/2017 10:57 [facility] [place] TYPE: Emergency COMPLAINT: - ABDOMINAL PAIN DIAGNOSES: - Essential (primary) hypertension - Unspecified abdominal pain - Nausea with vomiting, unspecified - Allergy status to other antibiotic agents status - Allergy status to other drugs, medicaments and biological substances status - Other mcfp (current) drug therapy - Allergy status to [...] - Nicotine dependence, unspecified, uncomplicated - Other long term care pharmacist (current) drug therapy - Acquired absence of [...] of other specified parts of digestive tract INPATIENT VISIT TRACKING (12 MO.) No inpatient visits to display in this time frame [email or web address]
[2018-06-27] MEDS ORDERED: KETOROLAC TROME10 MG PO (16:45)
== END 2018-06-27 17:07 | disposition home or self-care (01) ==
LOC: ED 12:42
DX: M54.5 Low back pain (principal); M25.552 Pain in left hip; I10 Essential (primary) hypertension; Z87.891 Personal history of nicotine dependence; Z88.1 Allergy status to other antibiotic agents; Z88.5 Allergy status to narcotic agent; Z79.899 Other long term (current) drug therapy
CPT/HCPCS: 99283

== ENCOUNTER 2019-01-29 01:11 | Emergency (ER) | payer OTHER ==
[~2019-01-29] VITALS: Ht 162.6 cm; Wt 139.8 kg
--- OUTSIDE RECORDS SUMMARY | ~2019-01-29 | XMS | Encounter Summary ---
Demographics + + + | Address | [address] | | | [place] [address] | + + + | Home Phone | | + + + | Preferred Language | Unknown | + + + | Marital Status | Single | + + + | Congregation Affiliation | Unknown | + + + | Race | Unknown | + + + | Ethnic Group | Unknown | + + + Author + + + | Author | [employer] | + + + | Organization | [facility] | + + + | Address | Unknown | + + + | Phone | Unavailable | + + + Support + + +---------+ + | Name | Relationship | Address | Phone | + + +---------+ + | Kristel Teresa | ECON | Unknown | | + + +---------+ + Care Team Providers + +------+ + | Care Pollution Control Technician Name | Role | Phone | + +------+ + | Jaimie Monreal MD | PCP | | + +------+ + Reason for Visit + + + | Reason | Comments | + + + | Medication Problem | Change on Rx refill order. | + + + Encounter Details +--------+ + + + + | Date | Type | Department | Care Team | Description | +--------+ + + + + | 12/11/ | Telephone | [facility] | Xiang Sepulveda, | Medication Problem | | 2019 | | [facility] | DO [address] | (Change on Rx refill | | | | [address] | [place], [place] | order.) | | | | [place], [place] | [address] | | | | | [address] | | | | | | [phone] | | | +--------+ + + + + Social History + +-------+ +--------+ + | Tobacco Use | Types | Packs/Day | Years | Date | | | | | Used | | + +-------+ +--------+ + | Current Every Day | | | | Quit: 12/12/2017 | | Smoker | | | | | + +-------+ +--------+ + + +---+---+---+ | Smokeless Tobacco: | | | | | Never Used | | | | + +---+---+---+ + + +---------+ + | Alcohol Use | Drinks/We | oz/Week | Comments | | | ek | | | + + +---------+ + | No | | | | + + +---------+ + + + + | Sex Assigned at | Date Recorded | | | | + + + | Not on file | | + + + as of this encounter Plan of Treatment +--------+---------+ + + + | Date | Type | Specialty | Care Team | Description | +--------+---------+ + + + | 01/29/ | Office | Dolorology | Xiang Sepulveda, | | | 2019 | Visit | | [address] | | | | | | [place] | | | | | | [address] | | | | | | | | +--------+---------+ + + + as of this encounter Visit Diagnoses Not on filein this encounter"
--- OUTSIDE RECORDS SUMMARY | ~2019-01-29 | XMS | Encounter Summary ---
Demographics + + + | Address | [address] | | | [place] [address] | + + + | Home Phone [...] Author + + + | Author | [facility] | + + + | Organization | [facility] | + + + | Address [...] Team Providers + +------+ + | Care Batch Records Clerk Name | Role | Phone | + +------+ + | Marta Jenkins CRIME LAB ANALYST | PCP | | + +------+ + [...] | | | | | THERAPY | [address] | and Healing, | | | | | REFERRAL | Phone: | 1st floor | | | | | | [phone] | [place], [place] | | | | | | Fax: | [address] | | | | | | [phone] | Phone: | | | | | | | [phone] | | | | | | | Fax: | | | | | | | [phone] | +--------+--------+ + + + + Encounter Details +--------+ + + + + | Date | Type | Department | Care Team | Description | +--------+ + + + + | 11/19/ | Rooter Operator | [facility] | Wanda López ACNP | Morbid obesity (HCC) | | 2019 | | [facility] [address] | [address] | (Primary Dx) | | | | [address] | [address], | | | | | Mailcode: [place] | [place] [address] | | | | | for Health and | [phone] | | | | | [facility] [address] | | | | | | [place], [place] | | | | | | [address] | | | | | | | [...]
--- OUTSIDE RECORDS SUMMARY | ~2019-01-29 | XMS | Encounter Summary ---
Demographics + + + | Address | [address] | | | [place] [address] | + + + | Home Phone | | + + + | Preferred Language | Unknown | + + + | Marital Status | Single | + + + | Tenriism Affiliation | Unknown | + + + | Race | Unknown | + + + | Ethnic Group | Unknown | + + + Author + + + | Author | [employer] | + + + | Organization | [facility] [employer] [facility] | + + + | Address | Unknown | + + + | Phone | Unavailable | + + + Support + + +---------+ + | Name | Relationship | Address | Phone | + + +---------+ + | Kristel Teresa | ECON | Unknown | | + + +---------+ + Care Team Providers + +------+ + | Care Flatbed Owner Operator Name | Role | Phone | [...] Required | Medicine / | Radiculopath | SPRING ASSEMBLER [address] | [address] | | | | Dolorology | y of lumbar | [address] | DR [address] | | | | | region | [place] | [place], [place] | | | | | Osteoarthrit | [place], [place] | [address] Phone: | | | | | is of lumbar | [address] | [phone] | | | | | spine, | Phone: | Fax: | | | | | unspecified | [phone] | [phone] | | | | | spinal | Fax: | | | | | | osteoarthrit | [phone] | | | | | | is [...] + + | 12/04/ | Office | [facility] | Xiang Sepulveda, | Radiculopathy of | | 2019 | Visit | [facility] | DO [address] | lumbar region; Facet | | | | [address] | [place], [place] | arthropathy, | | | | [place] | [address] | lumbar; | | | | [address] | | Osteoarthritis of | | | | [phone] | | lumbar spine, | | | [...] to physical therapy, mass age therapy, acupuncture, account executive healthcare, along with recommended psychological counseling , either privately, or in group sessions offered by private care individuals, community serv ices, or buddhism organizations. Appropriate referrals were made at patient [...] plan, Will return to office in 8weeks, [facility] was consulted and appears appropriate, Urine Toxicology [...] dysfunction are noted in men and women. [facility] men will suffer erectile dysfunction [...] and complications with the passage of time. termite renewal inspector use is also associated with depressions, and [...] 2018 | Visit | | DO [address] | | | | | | [place] | | | | | | [address] | | | | | | | [...]
--- OUTSIDE RECORDS SUMMARY | ~2019-01-29 | XMS | Encounter Summary ---
Demographics + + + | Address | [address] | | | [place] [address] | + + + | Home Phone [...] Team Providers + +------+ + | Care Other Sports Coach Or Instructor Name | Role | Phone | + +------+ + | Marta Jenkins CLINICAL SALES CONSULTANT | PCP | | + +------+ [...] | | | | | PHYSICAL | [place], [place] | for Health | | | | | THERAPY | [address] | and Healing, | | | | | REFERRAL | Phone: | 1st floor | | | | | | [phone] | [place], [place] | | | | | | Fax: | [address] | | | | | | [phone] | Phone: | | | | | | | [phone] | | | | | | | Fax: | | | | | | | [phone] | +--------+--------+ + + + + Encounter Details +--------+ + + + + | Date | Type | Department | Care Team | Description | +--------+ + + + + | 11/19/ | Hardware Assembler | Digestive Health | Wanda López ACNP | Morbid obesity (HCC) | | 2019 | | Center at [facility] [address] | [address] | (Primary Dx) | | | | [address] | Roxann Ayala [place], | | | | | Mailcode: [place] | [place] [address] | | | | | for Health and | [phone] | | | | | [facility], [facility] 2 | | | | | | [place], [place] | | | | | | [address] | | | | | | | [...]
--- OUTSIDE RECORDS SUMMARY | ~2019-01-29 | XMS | Clinical Summary ---
Demographics + + + | Address | [address] | | | [place] [address] | + + + | Home Phone [...] Providers + +------+ + | Care Senior Quality Methods Specialist Name | Role | Phone | + +------+ + | Marta Jenkins PET CREMATORY WORKER | PP | | + +------+ + Source Comments LION is fully live on both [facility] Ambulatory and [facility] InPatient.[facility] Allergies + + + + [...] Atorvastatin | Hives, Rash | High | 11/18/20 | | | | | | 03 [...] | | + + + +---------+------+------+-------+ | Hammond-3 Fatty | Take by mouth. | | [...] mouth | 90 Tab | 0 | /2 | | Activ | | Oral Tablet, [...] mouth | 60 Cap | 5 | 02 | | Activ | | Oral Capsule [...] Take 800 mg by mouth | | | | | Activ | | oral tablet | every six hours as | | | | | e | | | needed. | | | | | | + + + +---------+------+------+-------+ | diclofenac sodium | Take 75 mg by mouth | | | | | Activ | | EC 75 mg oral | two times daily. | | | | | e | | tablet,delayed | | | | | | | | release (DR/EC) | | | | | | | + + + +---------+------+------+-------+ | oxyCODONE | Take by mouth every | | | | | Activ | | (immediate release) | eight hours as | | | | | e | | 5 mg oral tablet | needed for | | | | | | | | breakthrough pain. | | | | | | + + + +---------+------+------+-------+ | cannabidiol (CBD) | Take 1 mL by mouth | | | | | Activ | | extract 100 mg/mL | two times daily. | | | | | e | | oral solution | | | | | | | + + + +---------+------+------+-------+ | lidocaine 5 % | Apply 1 patch to | | | | | Activ | | topical [...] | + + + | Methamphetamine abuse (HCC) | 07/02/2018 | + + + | [...] 10/14/2010 | + + + | Bettye anita of groin | 10/14/2010 | + + [...] + | Overview: ICD10 | + + Encounters +--------+ + + + + | Date | Type | Specialty | Care Team | Description | +--------+ + + + + | 11/19/ | Documentati | | Petcu, Aura, ACNP | | | 2018 | on | | | | +--------+ + + + + | 11/19/ | Batch Analyst | | Petcu, Aura, ACNP | Morbid obesity (HCC) | | 2018 | | | | (Primary Dx) | +--------+ + + + + | 11/19/ | Documentati | | Clinic, Surgery | | | 2018 | on | | | | +--------+ + + + + | 11/18/ | Abstract | | Clinic, Surgery | | | 2018 | | | | | +--------+ + + + + from Last 3 Months Immunizations + + + + | Name [...] kg (263 lb) | 10/02/2018 9:47 AM PST | + + + + | Height | 163.8 cm (5' 4.5") | 10/02/2018 9:47 AM PST | + + + + | Body Mass Index | 44.45 | 10/02/2018 9:47 AM PST | + + + + Plan of Treatment + + + + + | Health Maintenance | Due Date | Last Done | Comments | + + + + + | Pneumococcal (Adult) | | | | | (1 of 1 - PPSV23) | 8 | | | + + + + + | Influenza (Flu) | | | | | vaccination (#1) | 8 | | | + + + + + Results Not on filefrom Last 3 Months Insurance + +--------+ +--------+-------+---------+ | Payer | Benefi | Subscriber | Type | Phone | Address | | | t Plan | ID | | | | | | / | | | | | | | Group | | | | | + +--------+ +--------+-------+---------+ | LATHE OPERATOR MEDICAID | LATHE OPERATOR | xxxxxxxx | Medica | | | | | [place] | | id | | | | | [place] | | | | | + +--------+ +--------+-------+---------+ + +--------+ +--------+ + + | Guarantor Name | Accoun | Relation to | Date | Phone | Billing Address | | | t Type | Patient | of | | | | | | | | | | + +--------+ +--------+ + + | SHELBY GALDAMEZ | Person | Self [birth year] | Home: | [address] | | | al/Fam | | 1959 | [phone] | [address] [place], [place] | | | gigi | | | [phone] | [address] | + +--------+ +--------+ + + | SHELBY GALDAMEZ | Third | Self | [birth year] | Home: | [address] | | | Republican | | 1959 | [phone] | [address] [place], [place] | | | Liabil | | | [phone] | [address] | | | ity | | | | | + +--------+ +--------+ + +
--- OUTSIDE RECORDS SUMMARY | ~2019-01-29 | XMS | Encounter Summary ---
Demographics + + + | Address | [address] | | | [place] [address] | + + + | Home Phone | | + + + | Preferred Language | Unknown | + + + | Marital Status | Single | + + + | Gnosticism Affiliation | Unknown | + + + | Race | Unknown | + + + | Ethnic Group | Unknown | + + + Author + + + | Author | [employer] | + + + | Organization | [facility] | + + + | Address | Unknown | + + + | Phone | Unavailable | + + + Support + + +---------+ + | Name | Relationship | Address | Phone | + + +---------+ + | Kristel Teresa | ECON | Unknown | | + + +---------+ + Care Team Providers + +------+ + | Care Operating Room Scheduler Name | Role | Phone | + [...] Description | +--------+--------+ + + + | 11/17/ | Refill | [facility] | Xiang Sepulveda, | | | 2018 | | [facility] | DO [address] | | | | | [address] | [place] | | | | | [place] | [address] | | | | | [address] | | | | | | [phone] | | | +--------+--------+ + + + [...] [place] | | | | | | [address] | | | | | | | | +--------+---------+ + + + as of this encounter Visit Diagnoses Not on filein this encounter"
--- OUTSIDE RECORDS SUMMARY | ~2019-01-29 | XMS | Encounter Summary ---
Demographics + + + | Address | [address] | | | [place] [address] | + + + | Home Phone [...] Team Providers + +------+ + | Care Biological Inspector Name | Role | Phone | + +------+ + | Mrata Jenkins TEENAGE PROGRAM DIRECTOR | PCP | | + +------+ + Encounter Details +--------+ + + + + | Date | Type | Department | Care Team | Description | +--------+ + + + + | 11/19/ | Documentati | Digestive Health | Clinic, Surgery | | | 2019 | on | [place] at [facility] [address] | | | | | | [address] | | | | | | Mailcode: [place] | | | | | | for Health and | | | | | | Healing, Building 2 | | | | | | [place], [place] | | | | | | [address] | | | | | | [phone] | | | +--------+ + + + [...]
--- OUTSIDE RECORDS SUMMARY | ~2019-01-29 | XMS | Encounter Summary ---
Demographics + + + | Address | [address] | | | [place] [address] | + + + | Home Phone [...] Team Providers + +------+ + | Care Control Systems Designer Name | Role | Phone | + +------+ + | Marta Jenkins SANDING MACHINE OPERATOR | PCP | | + +------+ + Encounter Details +--------+ + + + + | Date | Type | Department | Care Team | Description | +--------+ + + + + | 11/19/ | Documentati | Digestive Health | Wanda López ACNP | | | 2019 | on | Center at [facility] [address] | [address] | | | | | [address] | Roxann Ayala [place], | | | | | Mailcode: [place] | [place] [address] | | | | | for Health and | [phone] | | | | | [facility] 2 | | | | | | [place], [place] | | | | | | [address] | | | | | | [phone] | | | +--------+ + + + [...]
--- OUTSIDE RECORDS SUMMARY | ~2019-01-29 | XMS | Clinical Summary ---
Demographics + + + | Address | [address] | | | [place] [address] | + + + | Home Phone | | + + + | Preferred Language | Unknown | + + + | Marital Status | | + + + | Cheondoism Affiliation | 1076 | + + + | Race | Unknown | + + + | Ethnic Group | Unknown | + + + Author + + + | Author | [facility] | | | and [place] | + + + | Organization | [facility] | | | and [...] Providers + +------+ + | Care Machine Maintenance Name | Role | Phone | + [...] abdominal pain. Seen Hood Sommer | | [facility] Colonoscopy 11/02/08diverticulosis sigmoid and | [...] | YAMILA DRISCOLL | | 08/15/ | [id number] | | - [id number]: Qty: 1 | | | INCORPORATE | | 2018 | / | | on 11/25/2016 by Rustam Schmid | | Ureter | D | | | /[id number] | | MD Cordelia | | | [...] | [employer] | MODA | [id number] | | [phone] | | Medica | | MEDICAID HMO [...] gigi | | | 7 (Home) | [address] | + +--------+ +--------+ + + Advance Directives Patient has advance care planning documents, and code status on file. For more information, please contact: and [place] [address] + + + + + | Code Status | Date | Date | Comments | | | Activated | Inactivated | | + + + + + | Full Code | 11/25/2016 | 11/25/2016 | | | | 12:09 | 17:28 | | + + + + +
--- OUTSIDE RECORDS SUMMARY | ~2019-01-29 | XMS | Encounter Summary ---
Demographics + + + | Address | [address] | | | [place] [address] | + + + | Home Phone [...] + + + | Author | [facility] | + + + | Organization | [facility] | + + + | [...] Providers + +------+ + | Care Optical Coating Technician Name | Role | Phone | + +------+ + | Marta Jenkins DIRECTORY CARRIER | PCP | | + +------+ + Encounter Details +--------+ + + + + | Date | Type | Department | Care Team | Description | +--------+ + + + + | 11/18/ | Abstract | Digestive Health | Clinic, Surgery | | | 2019 | | [place] at [facility] [address] | | | | | | [address] | | | | | | Mailcode: [place] | | | | | | [facility] | | | | | | Healing, Building [address] | | | | | | [facility] [place] | | | | | | [address] | | | | | | [phone] | | | +--------+ + + + [...]
--- OUTSIDE RECORDS SUMMARY | ~2019-01-29 | XMS | Encounter Summary ---
Demographics + + + | Address | [address] | | | [place] [address] | + + + | Home Phone [...] + + + | Author | [facility] | + + + | Organization | [facility] | + + + | Address [...] Team Providers + +------+ + | Care Liner Worker Name | Role | Phone | + +------+ + | Marta Jenkins BOARDER STEAM | PCP | | + +------+ + Encounter Details +--------+ + + + + | Date | Type | Department | Care Team | Description | +--------+ + + + + | 11/19/ | Documentati | Digestive Health | Wanda López ACNP | | | 2019 | on | Center at [facility] [address] | [address] | | | | | [address] | Rox[place] Ayala [place], | | | | | Mailcode: [place] | [place] [address] | | | | | for Health and | [phone] | | | | | [facility], [facility] 2 | | | | | | [place], [place] | | | | | | [address] | | | | | | [phone] | | | +--------+ + + + [...]
--- OUTSIDE RECORDS SUMMARY | ~2019-01-29 | XMS | Encounter Summary ---
Demographics + + + | Address | [address] | | | [place] [address] | + + + | Home Phone | | + + + | Preferred Language | Unknown | + + + | Marital Status | Single | + + + | Taoist Affiliation | Unknown | + + + | Race | Unknown | + + + | Ethnic Group | Unknown | + + + Author + + + | Author | [employer] | + + + | Organization | [facility] | + + + | Address | Unknown | + + + | Phone | Unavailable | + + + Support + + +---------+ + | Name | Relationship | Address | Phone | + + +---------+ + | Kristel Teresa | ECON | Unknown | | + + +---------+ + Care Team Providers + +------+ + | Care Ribbon Lapper Tender Name | Role | Phone | [...] Required | Medicine / | Radiculopath | FIRE PREVENTION ENGINEER [address] | [address] | | | | Dolorology | y of lumbar | [address] | DR [address] | | | | | region | [place] | [place], [place] | | | | | Osteoarthrit | [place], [place] | [address] Phone: | | | | | is of lumbar | [address] | [phone] | | | | | spine, | Phone: | Fax: | | | | | unspecified | [phone] | [phone] | | | | | spinal | Fax: | | | | | | osteoarthrit | [phone] | | | | | | is [...] + + | 12/04/ | Office | [facility] | Xiang Sepulveda, | Radiculopathy of | | 2019 | Visit | [facility] | DO [address] | lumbar region; Facet | | | | [address] | [place], [place] | arthropathy, | | | | [place] | [address] | lumbar; | | | | [address] | | Osteoarthritis of | | | | [phone] | | lumbar spine, | | | [...] therapy, mass age therapy, acupuncture, lawn care worker, along with recommended psychological counseling , either privately, or in group sessions offered by private care individuals, community serv ices, or catholic organizations. Appropriate referrals were made at patient [...] plan, Will return to office in 8weeks, [facility] was consulted and appears appropriate, [...] complications with the passage of time. terminal system operator use is also associated with depressions, and [...] | | | | | [place] [address] | | | | | | [address] | | | | | | | [...]
--- OUTSIDE RECORDS SUMMARY | ~2019-01-29 | XMS | Clinical Summary ---
Demographics + + + | Address | [address] | | | [place] [address] | + + + | Home Phone | | + + + | Preferred Language | Unknown | + + + | Marital Status | Single | + + + | Rastafari Affiliation | Unknown | + + + | Race | Unknown | + + + | Ethnic Group | Unknown | + + + Author + + + | Author | [email or web address] | + + + | Organization | [facility] | + + + | Address | Unknown | + + + | Phone | Unavailable | + + + Support + + +---------+ + | Name | Relationship | Address | Phone | + + +---------+ + | Kristel Teresa | ECON | Unknown | | + + +---------+ + Care Team Providers + +------+ + | Care Densitometrist Name | Role | Phone | + [...] | | | + + +---------+---------+------+------+-------+ | ibuprofen (MOTRIN) | Take by mouth. | | | | | Activ | | 800 MG tablet | | | | | | e | + + +---------+---------+------+------+-------+ | diclofenac | Take 1 tablet by | 60 | 11 | 09/30 | / | Activ | | (VOLTAREN) 75 MG [...] | 0 | 04/0 | 05/0 | Activ | | oxyCODONE-acetaminop | mouth every 8 | tablet | | /20 | 7/20 | e | | hen (PERCOCET) 5-325 [...] | 12/11/ | Telephone | | Xiang Sepulevda, | Medication Problem | | 2018 | [...] [place] | | | | | | [address] | | | | | | | [...] +------+-------+ + | MEDICAID | [place] | [id number] | | | [address] | | | N | | | | [place], [place] | | | [place] | | | | [address] | | | FAMILY RESOURCE MANAGEMENT PROFESSOR | | | | | + +--------+ +------+-------+ + + +--------+ +--------+ + + | Guarantor Name | Accoun | Relation to | Date | Phone | Billing Address | | | t Type | Patient | of | | | | | | | | | | + +--------+ +--------+ + + | SHELBY BONILLA | Person | Self | [birth year] | Home: | [address] | | | al/Fam | | 1960 | [phone] | [place] | | | gigi | | | [address] | [address] | + +--------+ +--------+ + +
--- OUTSIDE RECORDS SUMMARY | ~2019-01-29 | XMS | Encounter Summary ---
Demographics + + + | Address | [address] | | | [place] [address] | + + + | Home Phone [...] Team Providers + +------+ + | Care Doctor'S Assistant Name | Role | Phone | + +------+ + | Marta Jenkins CHARGE RN | PCP | | + +------+ + Encounter Details +--------+ + + + + | Date | Type | Department | Care Team | Description | +--------+ + + + + | 11/18/ | Abstract | Digestive Health | Clinic, Surgery | | | 2019 | | [place] at [facility] [address] | | | | | | [address] | | | | | | Mailcode: [place] | | | | | | [facility] and | | | | | | Healing, Building [address] | | | | | | [facility] [place] | | | | | | [address] | | | | | | [phone] | | | +--------+ + + + [...]
--- OUTSIDE RECORDS SUMMARY | ~2019-01-29 | XMS | Clinical Summary ---
Demographics + + + | Address | [address] | | | [place] [address] | + + + | Home Phone [...] Team Providers + +------+ + | Care Division Sales Manager Name | Role | Phone | + +------+ + | Marta Jenkins MACHINE CLOTHING REPLACER | PP | | + +------+ + Source Comments LION is fully live on both [facility] Ambulatory and [facility] InPatient.[facility] Allergies + + + + [...] | | + + + +---------+------+------+-------+ | Jackpot-3 Fatty | Take by mouth. | | [...] + + + + | 11/19/ | Coupon Collection Clerk | | Petcu, Aura, ACNP | Morbid [...] | | | + +--------+ +--------+-------+---------+ | ROTARY ROCK DRILLING MACHINE OPERATOR MEDICAID | ROTARY ROCK DRILLING MACHINE OPERATOR | xxxxxxxx | Medica | | [...] | gigi | | | [address] | [address] | + +--------+ +--------+ + + | SHELBY GALDAMEZ | Third | Self | [birth year] | Home: | [address] | | | [place] | | 1959 | [phone] | [address] [place], [place] | | | Liabil | | | [address] | [address] | | | ity | | | | | + +--------+ +--------+ + +
--- OUTSIDE RECORDS SUMMARY | ~2019-01-29 | XMS | Encounter Summary ---
Demographics + + + | Address | [address] | | | [place] [address] | + + + | Home Phone [...] Team Providers + +------+ + | Care Repairer Hairspring Name | Role | Phone | + +------+ + | Marta Jenkins RESERVOIR ENGINEER | PCP | | + +------+ + Encounter Details +--------+ + + + + | Date | Type | Department | Care Team | Description | +--------+ + + + + | 11/19/ | Documentati | Digestive Health | Clinic, Surgery | | | 2019 | on | [place] at [facility] [address] | | | | | | [address] | | | | | | Mailcode: [place] | | | | | | for Health and | | | | | | Healing, Building [address] | | | | | | [place], [place] | | | | | | [address] | | | | | | [phone] | | | +--------+ + + + [...]
--- OUTSIDE RECORDS SUMMARY | ~2019-01-29 | XMS | Encounter Summary ---
Demographics + + + | Address | [address] | | | [place] [address] | + + + | Home Phone | | + + + | Preferred Language | Unknown | + + + | Marital Status | Single | + + + | Alevism Affiliation | Unknown | + + + | Race | Unknown | + + + | Ethnic Group | Unknown | + + + Author + + + | Author | [facility] | + + + | Organization | [facility] | + + + | Address | Unknown | + + + | Phone | Unavailable | + + + Support + + +---------+ + | Name | Relationship | Address | Phone | + + +---------+ + | Kristel Teresa | ECON | Unknown | | + + +---------+ + Care Team Providers + +------+ + | Care Fishing Rod Marker Name | Role | Phone | [...] | | 2018 | | [facility] | DO [address] | | | | | [address] | [place] | | | | | [place] | [address] | | | | | [address] | | | | | | [phone] | | | +--------+--------+ + + + [...] [place] | | | | | | [address] | | | | | | | | +--------+---------+ + + + as of this encounter Visit Diagnoses Not on filein this encounter"
--- OUTSIDE RECORDS SUMMARY | ~2019-01-29 | XMS | Encounter Summary ---
Demographics + + + | Address | [address] | | | [place] [address] | + + + | Home Phone | | + + + | Preferred Language | Unknown | + + + | Marital Status | Single | + + + | Restorationist Affiliation | Unknown | + + + | Race | Unknown | + + + | Ethnic Group | Unknown | + + + Author + + + | Author | [employer] | + + + | Organization | [facility] | + + + | Address | Unknown | + + + | Phone | Unavailable | + + + Support + + +---------+ + | Name | Relationship | Address | Phone | + + +---------+ + | Kristel Teresa | ECON | Unknown | | + + +---------+ + Care Team Providers + +------+ + | Care Concert Pianist Name | Role | Phone | + [...] + + | 12/11/ | Telephone | [facility] | Xiang Sepulveda, | Medication Problem | | 2019 | | [facility] | DO [address] | (Change on Rx refill | | | | [address] | [place], [place] | order.) | | | | [place], [place] | [address] | | | | | [address] | | | | | | [phone] | | | +--------+ + + + [...] [place] | | | | | | [address] | | | | | | | | +--------+---------+ + + + as of this encounter Visit Diagnoses Not on filein this encounter"
--- OUTSIDE RECORDS SUMMARY | ~2019-01-29 | XMS | Clinical Summary ---
Demographics + + + | Address | [address] | | | [place] [address] | + + + | Home Phone [...] Team Providers + +------+ + | Care Hydrographical Technical Officer Name | Role | Phone [...] abdominal pain. Seen Hood Sommer | | [facility] Colonoscopy 11/02/08diverticulosis sigmoid and | [...] | YAMILA DRISCOLL | | 08/15/ | [id number] | | - [id number]: Qty: 1 | | | INCORPORATE | | 2018 | / | | on 11/25/2016 by Rustam Schmid | | Ureter | D | | | /[id number] | | MD Cordelia | | | [...] | [employer] | MODA | [id number] | | [phone] | | Medica | | MEDICAID HMO [...] [place] | | | 7 (Home) | [address] | + +--------+ +--------+ + + Advance Directives Patient has advance care planning documents, and code status on file. For more information, please contact:[facility] [place] [address] + + + + + | Code Status | Date | Date | Comments | | | Activated | Inactivated | | + + + + + | Full Code | 11/25/2016 | 11/25/2016 | | | | 12:09 | 17:28 | | + + + + +
--- OUTSIDE RECORDS SUMMARY | ~2019-01-29 | XMS | Clinical Summary ---
Demographics + + + | Address | [address] | | | [place] [address] | + + + | Home Phone | | + + + | Preferred Language | Unknown | + + + | Marital Status | Single | + + + | Zoroastrianism Affiliation | Unknown | + + + | Race | Unknown | + + + | Ethnic Group | Unknown | + + + Author + + + | Author | [employer] | + + + | Organization | [facility] | + + + | Address | Unknown | + + + | Phone | Unavailable | + + + Support + + +---------+ + | Name | Relationship | Address | Phone | + + +---------+ + | Kristel Teresa | ECON | Unknown | | + + +---------+ + Care Team Providers + +------+ + | Care Auto Dealer Name | Role | Phone | [...] [place] | | | | | | [address] | | | | | | | [...] +------+-------+ + | MEDICAID | [place] | [id number] | | | [address] | | | N | | | | [place], [place] | | | [place] | | | | [address] | | | HIDE AND SKIN FLESHING MACHINE OPERATOR | | | | | [...] Self | [birth year] | Home: | [address] | | | al/Fam | | 1960 | [phone] | [place] | | | gig[place] | | | [address] | [address] | + +--------+ +--------+ + +
[2019-01-29] MEDS ORDERED: PERCOCET 5-3251 EACH PO (01:22)
[2019-01-29] MEDS ORDERED: LOSARTAN POTAS100 MG PO (01:22)
[2019-01-29] MEDS ORDERED: CYCLOBENZAPRINE10 MG PO (01:22)
[2019-01-29] MEDS ORDERED: DICLOFENAC SOD100 G1 (01:22)
[2019-01-29] MEDS ORDERED: IBUPROFEN800 MG PO (01:22)
[2019-01-29] MEDS ORDERED: KEFLEX500 MG PO (02:59)
--- OUTSIDE RECORDS SUMMARY | 2019-01-29 04:12 | XMS ---
PreManage Notification: CHASTITY BONILLA Security Cloth Covered Helmet Puller Events 1 event(s) in the past 18 months Most recent security events: Verbal at [facility] 06/24/2018 19:26 - Patient was verbally abusive towards care providers, staff or patient. Details: PATIENT IS VERBALLY ABUSIVE TOWARDS STAFF AND RESEARCH ASSISTANT MEMBER CRITERIA MET - [facility] CARE PROVIDERS Cindy Herrera Finished Goods Stock Clerk/Manager Party 07/31/2013-Current PH[facility]: [phone] [facility]Mihai Cardona PHONE: Unknown ED[facility] PORRAS Primary Care 08/30/2017-Current PHONE: [phone] Cindy Herrera Primary Care 07/31/2013-Current PHONE: [phone] Eyad Vicente Treatment Current MD PHONE: Unknown Guidelines Source: [facility] Guidelines Date: 01/22/2018 Care Coordination: PATIENT HAS NEW PCP - EDIS PORRAS AT [place]. PATIENT WAS DISCHARGED FROM PAIN CONTRACT [...] TO SEE PATIENT. Care History Social 12/26/2017 [facility] - Patient has been discharged from [facility] services due to not following through with any help and or services. - Patient admits to marijuana usage, please take this into consideration when providing treatment for nausea/stomach upset (clinical judgement) - Patient currently receives caregivers through [facility] case resource manager is Willa. Medical/Surgical 06/25/2018 [facility] - Pain Clinic Management- [facility] Neuro Science- Dr Bess Pain Management PCP. - Provider will discuss with patient about custodial placement. - PATIENT HAS A PCP APT @ 1:00 06/25/18. - PATIENT IS CURRENTLY PRESCRIBED 5/235 PERCOCET FOR EVERY 8 HOURS PER PAIN MANAGEMENT CLINIC. 06/24/2018 [facility] - PATIENT CALLED PCP OFFICE ON [...] CAUTIOUS PATIENT TESTS POSITIVE FOR METHAMPHETAMINES. 11/20/2017 [facility] Care Recommendation: This patient has had 5 or more Emergency Department visits in the last 12 months. Patient requires education on the scope and purpose of the ED as an acute care provider not a Primary Care Provider and should not be utilized for chronic conditions. If patient returns to ED please contact Community Health WorkerElizabeth at [phone]. These are guidelines and the provider should exercise clinical judgment when providing care. Substance Use/Overdose 11/27/2016 [facility] UPDATE BY PCP: PATIENT HAS FAILED 3 DRUG SCREENS INCLUDING POSITIVE FOR METHAMPHETAMINESIN A ROW AT PCP CLINIC. USE CAUTION WHEN GIVING NARCOTICS. AVOID HOME RX FOR NARCOTICS. CALL [facility] [phone] FOR RECOMMENDATIONS ON PAIN MEDS 10/24/2016 [facility] PT HAS HISTORY OF DRUG SEEKING BEHAVIOR. UNDER PAIN CONTRACT WITH PCP. PT DID NOT PASS RECENT RANDOM DRUG SCREEN WITH PCP. E.D. VISIT COUNT (12 MO.) 5 [facility]. TOTAL 5 NOTE: Visits indicate total known visits. ED/UCC VISIT TRACKING (12 MO.) 01/29/2019 01:11 [facility] [place] TYPE: Emergency COMPLAINT: - FALL 07/13/2018 21:38 [facility] [place] TYPE: Emergency COMPLAINT: - RIGHT SIDED PAIN DIAGNOSES: - Allergy status to narcotic agent status - Pain in left hip - Allergy status to other antibiotic agents status - Allergy status to other drugs, medicaments and biological substances status - Other chronic pain - Major depressive disorder, single episode, unspecified - Pain in right shoulder - Nicotine dependence, unspecified, uncomplicated - Essential (primary) hypertension - Chronic obstructive pulmonary disease, unspecified - Pain in right shoulder - Pain in left hip 06/27/2018 12:42 [facility] [place] TYPE: Emergency COMPLAINT: - FLANK PAIN DIAGNOSES: - Allergy status to other antibiotic agents status - Personal history of nicotine dependence - Pain in left hip - Other terminal make up operator (current) drug therapy - Low back pain - Allergy status to narcotic agent status - Essential (primary) hypertension 06/24/2018 19:26 [facility] [place] TYPE: Emergency DIAGNOSES: - Other terminal make up operator (current) drug therapy - Allergy status [...] medicaments and biological substances status - Other terminal make up operator (current) drug therapy - Chronic obstructive pulmonary disease, unspecified - Essential (primary) hypertension - senior living (current) use of inhaled steroids - Allergy status to other antibiotic agents status - Urinary tract infection, site not specified - Nicotine dependence, unspecified, uncomplicated - Major depressive disorder, single episode, unspecified - Other stimulant abuse, uncomplicated INPATIENT VISIT TRACKING (12 MO.) No inpatient visits to display in this time frame [email or web address]
--- NOTE | 2019-01-29 13:51 | EKG ---
[facility] [address] [facility] [place] [address] Signed Sinus tachycardia Septal infarct (cited on or before 26-NOV-2016) Abnormal ECG When compared with ECG of 09-NOV-2017 14:24, QT has lengthened Confirmed by SIDDHARTHA CHAVES DO ([id number]) on 01/29/2019 1:50:48 PM Electronically Signed By: SIDDHARTHA CHAVES DO 01/29/19 1351 PATIENT NAME: CHADCHASTITY KUSUM Electrocardiogram DATE OF : 58 PHYSICIAN: SIDDHARTHA CHAVES DO REPORT #: [id number] REPORT IS CONFIDENTIAL AND NOT TO BE RELEASED WITHOUT AUTHORIZATION
== END 2019-01-29 03:37 | disposition home or self-care (01) ==
LOC: ED 01:11
DX: M25.552 Pain in left hip (principal); M25.511 Pain in right shoulder; G89.29 Other chronic pain; N39.0 Urinary tract infection, site not specified; R06.2 Wheezing; W19.XXXA Unspecified fall, initial encounter; F17.200 Nicotine dependence, unspecified, uncomplicated; F32.9 Major depressive disorder, single episode, unspecified; I10 Essential (primary) hypertension; J44.9 Chronic obstructive pulmonary disease, unspecified; Z88.1 Allergy status to other antibiotic agents; Z88.5 Allergy status to narcotic agent; Z79.899 Other long term (current) drug therapy; Z79.891 Long term (current) use of opiate analgesic
CPT/HCPCS: 51701; 71045; 73030; 73502; 80053; 81001; 84484; 85025; 87077; 87088; 87186; 93005; 93010; 94640; 99284-25; J1885

== ENCOUNTER 2019-02-04 14:20 | Emergency (ER) | payer OTHER ==
[~2019-02-04] VITALS: Ht 162.6 cm; Wt 139.8 kg
--- OUTSIDE RECORDS SUMMARY | ~2019-02-04 | XMS | Encounter Summary ---
Demographics + + + | Address | [address] | | | [place] [address] | + + + | Home Phone | | + + + | Preferred Language | Unknown | + + + | Marital Status | Single | + + + | Taoist Affiliation | Unknown | + + + | Race | Unknown | + + + | Ethnic Group | Unknown | + + + Author + + + | Author | [employer] | + + + | Organization | [facility] [employer] [facility] | + + + | Address | Unknown | + + + | Phone | Unavailable | + + + Support + + +---------+ + | Name | Relationship | Address | Phone | + + +---------+ + | Kristel Teresa | ECON | Unknown | | + + +---------+ + Care Team Providers + +------+ + | Care Train Conductor Name | Role | Phone | + [...] + + | 12/11/ | Telephone | [facility] | Xiang Sepulveda, | Medication Problem | | 2019 | | [facility] | DO [address] | (Change on Rx refill | | | | [address] | [place], [place] | order.) | | | | [place], [place] | [address] | | | | | [address] | | | | | | [phone] | | | +--------+ + + + [...] [place] | | | | | | [address] | | | | | | | | +--------+---------+ + + + as of this encounter Visit Diagnoses Not on filein this encounter"
--- OUTSIDE RECORDS SUMMARY | ~2019-02-04 | XMS | Encounter Summary ---
Demographics + + + | Address | [address] | | | [place] [address] | + + + | Home Phone [...] + + + | Author | [facility] | + + + | Organization | [facility] | + + + | Address | Unknown | + + + | Phone | Unavailable | + + + Support + + + + + | Name | Relationship | Address | Phone | + + + + + | ZAFAR KRISHNA | ROBERTO | [place] | | + + + + + Care Team Providers + +------+ + | Care Fire Crew Worker Name | Role | Phone | + +------+ + | Marta Jenkins CHARGER TESTER | PCP | | + +------+ + Encounter Details +--------+ + + + + | Date | Type | Department | Care Team | Description | +--------+ + + + + | 11/19/ | Documentati | Digestive Health | Clinic, Surgery | | | 2019 | on | [place] [facility] [address] | | | | | | [address] | | | | | | Mailcode: [place] | | | | | | for Health and | | | | | | Healing, [address] | | | | | | [place], [place] | | | | | | [address] | | | | | | [phone] | | | +--------+ + + + [...] this encounter Plan of Treatment Not on fileas of this encounter Visit Diagnoses Not on filein this encounter"
--- OUTSIDE RECORDS SUMMARY | ~2019-02-04 | XMS | Encounter Summary ---
Demographics + + + | Address | [address] | | | [place] [address] | + + + | Home Phone | | + + + | Preferred Language | Unknown | + + + | Marital Status | Single | + + + | Holiness Affiliation | Unknown | + + + | Race | Unknown | + + + | Ethnic Group | Unknown | + + + Author + + + | Author | [employer] | + + + | Organization | [facility] [employer] [facility] | + + + | Address | Unknown | + + + | Phone | Unavailable | + + + Support + + +---------+ + | Name | Relationship | Address | Phone | + + +---------+ + | Kristel Teresa | ECON | Unknown | | + + +---------+ + Care Team Providers + +------+ + | Care Finance Insurance Manager Name | Role | Phone | + +------+ + | Jaimie Monreal MD | PCP | | + +------+ + Reason for Visit +--------+ + | Reason | Comments | +--------+ + | Other | Requesting 01/29 visit note. | +--------+ + Encounter Details +--------+ + + + + | Date | Type | Department | Care Team | Description | +--------+ + + + + | 01/30/ | Telephone | [facility] | Xiang Sepulveda, | Other (Requesting | | 2019 | | [facility] | DO [address] | 01/29 visit note.) | | | | [address] | [facility] [place] | | | | | [place] | [address] | | | | | [address] | | | | | | [phone] | | | +--------+ + + + [...] [place] | | | | | | [id number] | | | | | | | | +--------+---------+ + + + as of this encounter Visit Diagnoses Not on filein this encounter"
--- OUTSIDE RECORDS SUMMARY | ~2019-02-04 | XMS | Encounter Summary ---
Demographics + + + | Address | [address] | | | [place] [address] | + + + | Home Phone [...] + + + | Author | [facility] | + + + | Organization | [facility] | + + + | Address | Unknown | + + + | Phone | Unavailable | + + + Support + + + + + | Name | Relationship | Address | Phone | + + + + + | ZAFAR KRISHNA | ROBERTO | [place] | | + + + + + Care Team Providers + +------+ + | Care Motor Vehicle Technician Name | Role | Phone | + +------+ + | Marta Jenkins HYDROGRAPHIC ENGINEER | PCP | | + +------+ + Reason for Referral Physical Therapy (Routine) +--------+--------+ + + + + | Status | Reason | Specialty | Diagnoses / | Referred By | Referred To | | | | | Procedures | Contact | Contact | +--------+--------+ + + + + | Open | | Physical | Diagnoses | Petcu, | [facility] | | | | Therapy | Morbid | Aura, ACNP | [address] | | | | | obesity | [address] | Yasmany Cejae | | | | | (HCC) | [address] | Mailcode: | | | | | Procedures | Rd | [facility] | | | | | PHYSICAL | [place], [place] | for Health | | | | | THERAPY | [address] | and Healing, | | | | | REFERRAL | Phone: | 1st floor | | | | | | [phone] | [place], [place] | | | | | | Fax: | [address] | | | | | | [phone] | Phone: | | | | | | | [phone] | | | | | | | Fax: | | | | | | | [phone] | +--------+--------+ + + + + Encounter Details +--------+ + + + + | Date | Type | Department | Care Team | Description | +--------+ + + + + | 11/19/ | Material Processor | Digestive Health | Wanda López ACNP | Morbid obesity (HCC) | | 2019 | | Center at [facility] [address] | [address] | (Primary Dx) | | | | [address] | Roxann Ayala [place], | | | | | Mailcode: [place] | [place] [address] | | | | | for Health and | [phone] | | | | | [facility] [address] | | | | | | [place], [place] | | | | | | [address] | | | | | | | [...] on fileas of this encounter Visit Diagnoses + + | Diagnosis | + + | Morbid obesity (HCC) - Primary | + + | Morbid obesity | + +"
--- OUTSIDE RECORDS SUMMARY | ~2019-02-04 | XMS | Encounter Summary ---
Demographics + + + | Address | [address] | | | [place] [address] | + + + | Home Phone | | + + + | Preferred Language | Unknown | + + + | Marital Status | Single | + + + | Latter Day Affiliation | Unknown | + + + | Race | Unknown | + + + | Ethnic Group | Unknown | + + + Author + + + | Author | [employer] | + + + | Organization | [facility] [employer] [facility] | + + + | Address | Unknown | + + + | Phone | Unavailable | + + + Support + + +---------+ + | Name | Relationship | Address | Phone | + + +---------+ + | Kristel Teresa | ECON | Unknown | | + + +---------+ + Care Team Providers + +------+ + | Care Technical Service Specialist Name | Role | Phone | + +------+ + | Jaimie Monreal MD | PCP | | + +------+ + Reason for Visit + + + | Reason | Comments | + + + | Follow-up | | + + + Consultation (Routine) +--------+ + + + + + | Status | Reason | Specialty | Diagnoses / | Referred By | Referred To | | | | | Procedures | Contact | Contact | +--------+ + + + + + | Closed | Specialty | Pain Medicine | Diagnoses | Margot, | Derick, | | | Services | - Pain | | Carmine S, | Xiang G DO | | | Required | Medicine / | Radiculopath | [address] | [address] | | | | Dolorology | y of lumbar | [address] | DR [address] | | | | | region | [place] [address] | [place], [place] | | | | | Osteoarthrit | [place], [place] | [address] Phone: | | | | | is of lumbar | [address] | [phone] | | | | | spine, | Phone: | Fax: | | | | | unspecified | [phone] | [phone] | | | | | spinal | Fax: | | | | | | osteoarthrit | [phone] | | | | | | is [...] | | | left | | | +--------+ + + + + + Encounter Details +--------+---------+ + + + | Date | Type | Department | Care Team | Description | +--------+---------+ + + + | 12/04/ | Office | [facility] | Xiang Sepulveda, | Radiculopathy of | | 2019 | Visit | [facility] | DO [address] | lumbar region; Facet | | | | [address] | [place], [place] | arthropathy, | | | | [place] | [address] | lumbar; | | | | [address] | | Osteoarthritis of | | | | [phone] | | lumbar spine, | | | | | | unspecified spinal | | | | | | osteoarthritis | | | | | | complication status | +--------+---------+ + + + Social History [...] + + + | Blood Pressure | 85/69 | 12/04/2018 10:56 AM PST | + + + + | Pulse | 111 | 12/04/2018 10:56 AM PST | + + + + | Temperature | - | - | + + + + | Respiratory Rate | 16 | 12/04/2018 10:56 AM PST | + + + + | Oxygen Saturation | 96% | 12/04/2018 10:56 AM PST | + [...] AM PST | + + + + in this encounter Progress Notes Xiang Sepulveda DO - 12/04/2018 11:00 AM PSTFormatting of this note may be different from the original. Patient returns for medication review and adjustment as deemed necessary for medical manage ment and insurance issues 58-year-old female seen back in the office today for medication evaluation follow-up. Bri ent complaining of increased joint pain with the cold weather Current medications that we give her include Voltaren 75 mg 1 twice a day, Voltaren gel dmitri lied to multiple sites up to 4 times a day. And Percocet 5/325 one po q8 hours prn pain VS Stable; Alert and Oriented X 4 ; B&B Continent ; Sleep OK ; Appetite Good ; Skin Int act Current pain problems are being met with current medication regime including but not limited to analgesics, NSAIDS ,neuronal pathway modulators, and medication for improved sl eep and restfulness Current Outpatient Prescriptions: albuterol (VENTOLIN HFA) 108 (90 Base) MCG/ACT inhaler, Inhale 1 puff every 6 hours as needed for shortness of breath, Disp: , Rfl: diclofenac (VOLTAREN) 1 %, Apply 2 g topically 4 (four) times daily for 30 days., Disp : 400 g, Rfl: 2 diclofenac (VOLTAREN) 75 MG EC tablet, Take 1 tablet by mouth 2 (two) times daily., Di sp: 60 tablet, Rfl: 11 ibuprofen (MOTRIN) 800 MG tablet, Take by mouth., Disp: , Rfl: omeprazole (PRILOSEC) 20 MG capsule, Take 20 mg by mouth., Disp: , Rfl: [START ON 01/04/2019] oxyCODONE-acetaminophen (PERCOCET) 5-325 MG per tablet, Take 1 tab let by mouth every 8 (eight) hours as needed for Pain for up to 30 days., Disp: 90 tablet, R fl: 0 Current Pain Level 2/10 Worst 7/10 Best 1/10 Past Medical History Diagnosis Date Arthritis bilateral shoulders Hypertension Other chronic pain ROS Unchanged from previous visit LMP 07/14/1998 (Approximate) HEENT : Unremarkable, PERRLA, EOMI Heart : HRRR LUNGS : Clear to auscultation bilateral post bases Abdomin : Soft, non tender, BS active X 4 Extremities : Warm and dry, negative edema, AROM BUE WFL ; MS 4/5 ; AROM BLE WFL, ;MS 4/5 Gait - uses roller walker for extended distances Improved Functional Status for Age Including ADL's, Mobility and Transfers where appr opriate Assistive Devices : Roller walker with seat LAB REVIEWED Available No visits with results within 1 Month(s) from this visit. Latest known visit with results is: No results found for any previous visit. ] XRAYS REVIEWED Available No results found. IMPRESSION : Chronic low back pain, degenerative joint disease multiple joints multiple sit es, chronic pain syndrome, PLAN : Patient appears to be at moderate risk category Alternative treatment modalitie s where discussed and offered to patient including but not limited to physical therapy, mass age therapy, acupuncture, after school caregiver, along with recommended psychological counseling , either privately, or in group sessions offered by private care individuals, community serv ices, or orthodox organizations. Appropriate referrals were made at patient and/or provider request Narcan was prescribed, when appropriate, and patient instructed in its use for emergency on ly. Continue current medication regime with these changes and/ or additions : Refill her Perc ocet 5/325 one po q8 hours, Voltaren 75 mg twice a day and Voltaren gel on a prn basis Patient understands and is in full agreement with the above plan, Will return to office in 8weeks, [facility] was consulted and appears appropriate, Urine Toxicology s nohemy is pending, Current Morphine milligram equivalents is 23 mg per day FOLLOW UP : As scheduled Responsible narcotic and sedative use was discussed [...] dysfunction are noted in men and women. [facility] men will suffer erectile dysfunction with these [...] and complications with the passage of time. author's agent use is also associated with depressions, and [...] Dolorology | Xiang Sepulveda, | | | 2018 | Visit | | DO [address] | | | | | | [place] | | | | | | [address] | | | | | | | | +--------+---------+ + + + as of this encounter Visit Diagnoses + + | Diagnosis | + + | Radiculopathy of lumbar region | + + | Thoracic or lumbosacral neuritis or radiculitis, unspecified | + + | Facet arthropathy, lumbar | + + | Lumbosacral spondylosis without myelopathy | + + | Osteoarthritis of lumbar spine, unspecified spinal osteoarthritis complication status | + +
--- OUTSIDE RECORDS SUMMARY | ~2019-02-04 | XMS | Encounter Summary ---
Demographics + + + | Address | [address] | | | [place] [address] | + + + | Home Phone [...] Team Providers + +------+ + | Care Printed Circuit Layout Taper Name | Role | Phone | + +------+ + | Marta Jenkins IMPORT/EXPORT CLERK | PCP | | + +------+ [...] | | | | | PHYSICAL | [place], [place] | for Health | | | | | THERAPY | [address] | and Healing, | | | | | REFERRAL | Phone: | 1st floor | | | | | | [phone] | [place], [place] | | | | | | Fax: | [address] | | | | | | [phone] | Phone: | | | | | | | [phone] | | | | | | | Fax: | | | | | | | [phone] | +--------+--------+ + + + + Encounter Details +--------+ + + + + | Date | Type | Department | Care Team | Description | +--------+ + + + + | 11/19/ | Program Manufacturing Leader | Digestive Health | Wanda López ACNP | Morbid obesity (HCC) | | 2019 | | Center at [facility] [address] | [address] | (Primary Dx) | | | | [address] | [address]ox[address] Ayala [place], | | | | | Mailcode: [place] | [place] [address] | | | | | for Health and | [phone] | | | | | [facility] [address] | | | | | | [place], [place] | | | | | | [address] | | | | | | | [...]
--- OUTSIDE RECORDS SUMMARY | ~2019-02-04 | XMS | Clinical Summary ---
Demographics + + + | Address | [address] | | | [place] [address] | + + + | Home Phone | | + + + | Preferred Language | Unknown | + + + | Marital Status | | + + + | Yarsani Affiliation | [id number] | + + + [...] Team Providers + +------+ + | Care Plastic Extrusion Operator Name | Role | Phone | + +------+ + | Eric Krishna MD | PP | | + +------+ + Allergies + + + + + + | Active Allergy | Reactions | Severity | Noted | Comments | | | | | Date | | + + + + + + | Levofloxacin | Itching | | 11/25/19 | | | | | | 17 | | + + + + + + | Lipitor | | | | | + + + + + + | Morphine | Itching, Rash | Low | 11/25/19 | | | | | [...] mg by mouth | | 0 | 05/31 | | Activ | | (PRILOSEC) 20 mg | Daily. | | | 01/17 | | e | | capsule | | | | 12 | | | + + + +---------+------+------+-------+ | cyclobenzaprine | Take 10 mg by mouth | | 0 | 09/1 | | Activ | | (FLEXERIL) 10 mg | Twice daily as | | | 4/20 | | e | | tablet | needed. | | | 12 | [...] | + + + +---------+------+------+-------+ | oxyCODONE 10 MG | Take 5-10 mg by | | 0 | | | Activ | | TABS | mouth every 4 hours | | | | | e | | | as needed. | | | | | | + + + +---------+------+------+-------+ Active Problems + + + | Problem | Noted Date | + + + | Calculus of [...] | 06/21/2011 | + + + | Disorder of function of stomach | 10/26/2008 | + + + + + | Overview: Overview: N/V and abdominal pain. Seen [facility] | | [facility] Colonoscopy 11/02/08diverticulosis sigmoid and | | descending colon. 2 polyps resected. EGD Hiatus hernia, erythema | | GE junction. Rec PPI indefinitely.Tubular adenoma, hyperplastic | | lymphoid folliclesIMO Problem List Replacement - | | 2016_Regulatory_1 | |IMO Problem List Replacement - 2017_Regulatory_1 | + + + + + | Tobacco use | 07/01/2008 | + + + + + | Overview: Overview: | | 1/2 PPD | + + + +---+ | HYPERLIPIDEMIA, [...] | 7 | + + + + Social History + [...] + | Blood Pressure | 112/57 | 11/25/20161209 PST | + + + + | Pulse | 111 | 11/25/20161209 PST | + + + + | Temperature | 35.5 C (95.9 F) | 11/25/20161209 PST | + + + + | Respiratory Rate | 16 | 11/25/20161209 PST | + + + + | Oxygen Saturation | 93% | 11/25/20161209 PST | + + + + | Inhaled Oxygen | - | - | | Concentration | | | + + + + | Weight | 134.3 kg (296 lb 1.2 | 11/25/2016610 PST | | | oz) | | + + + + | Height | 162.6 cm (5' 4") | 11/25/2016610 PST | + + + + | Body Mass Index | 50.82 | 11/25/2016610 PST | + + + + Plan of Treatment + + + + + | Health Maintenance | Due Date | Last Done | Comments | + + + + + | Hepatitis C | | | [...] Cancer | | | | | Screening (Ages | 9 | | | | 50-74) | | | | + + + + + | Colorectal Cancer | | | [...] | | + + + + + Implants + +-------+--------+ +--------+--------+--------+ | Implanted [...] 26cm | Stent | Right: | YAMILA | | 08/15/ | [id number] | | - [id number]: Qty: 1 | | | [employer] | | 2018 | / | | on 11/25/2016 by Rustam Schmid | | Ureter | - YAMILA | | | /[id number] | | MD Cordelia | | | | | | 61 | + +-------+--------+ +--------+--------+--------+ Results Not on [...] | [employer] | [employer] | [id number] | | [phone] | | [employer] | | MEDICAID HMO [...] | [birth year]20[birth year] | | [address] | | | al/Fam | | 1960 | [phone] | [place] | | | gigi | | | 7 (Home) | [address] | + +--------+ +--------+ + + Advance Directives Patient has advance care planning documents, and code status on file. For more information, please contact:[facility] [place] [address] + + + + + | Code Status | Date | Date | Comments | | | Activated | Inactivated | | + + + + + | Full Code | 11/25/2016 | 11/25/2016 | | | | 12:09 | 17:28 | | + + + + +
--- OUTSIDE RECORDS SUMMARY | ~2019-02-04 | XMS | Clinical Summary ---
Demographics + + + | Address | [address] | | | [place] [address] | + + + | Home Phone | | + + + | Preferred Language | Unknown | + + + | Marital Status | Single | + + + | Yazidism Affiliation | Unknown | + + + | Race | Unknown | + + + | Ethnic Group | Unknown | + + + Author + + + | Author | [employer] | + + + | Organization | [facility] | + + + | Address | Unknown | + + + | Phone | Unavailable | + + + Support + + +---------+ + | Name | Relationship | Address | Phone | + + +---------+ + | Kristel Teresa | ECON | Unknown | | + + +---------+ + Care Team Providers + +------+ + | Care Pharmacy Specialist Name | Role | Phone | [...] status | +--------+ + + + + | 11/17/ | Refill | | Xiang Sepulveda, | [...] [place] | | | | | | [address] | | | | | | | [...] +------+-------+ + | MEDICAID | EASTER | [id number] | | | [address] | | | N | | | | [place] | | | [place] | | | | [address] | | | GRAINING MACHINE OPERATOR | | | | | + +--------+ +------+-------+ + + +--------+ +--------+ + + | Guarantor Name | Accoun | Relation to | Date | Phone | Billing Address | | | t Type | Patient | of | | | | | | | | | | + +--------+ +--------+ + + | SHELBY GALDAMEZ | Person | Self | [birth year] | Home: | [address] | | | al/Fam | | 1959 | [phone] | [place] | | | gigi | | | [address] | [address] | + +--------+ +--------+ + +
--- OUTSIDE RECORDS SUMMARY | ~2019-02-04 | XMS | Clinical Summary ---
Demographics + + + | Address | [address] | | | [place] [address] | + + + | Home Phone | | + + + | Preferred Language | Unknown | + + + | Marital Status | | + + + | Rastafarian Affiliation | [id number] | + + + [...] Providers + +------+ + | Care Textile Supervisor Name | Role | Phone | [...] abdominal pain. Seen Hood Sommer | | [facility] Colonoscopy 11/02/08diverticulosis sigmoid and | | [...] Right: | YAMILA | | 08/15/ | [id number] | | - [id number]: Qty: 1 | | | [employer] | | 2018 | / | | on 11/25/2016 by Rustam Schmid | | Ureter | - [place] | | | /[id number] | | MD Cordelia | | | [...] | [employer] | MODA | [id number] | | [phone] | | Medica | [...] gigi | | | 7 (Home) | [address] | + +--------+ +--------+ + + Advance Directives Patient has advance care planning documents, and code status on file. For more information, please contact:[facility] and [facility] [place] [address] + + + + + | Code Status | Date | Date | Comments | | | Activated | Inactivated | | + + + + + | Full Code | 11/25/2016 | 11/25/2016 | | | | 12:09 | 17:28 | | + + + + +
--- OUTSIDE RECORDS SUMMARY | ~2019-02-04 | XMS | Encounter Summary ---
Demographics + + + | Address | [address] | | | [place] [address] | + + + | Home Phone [...] Team Providers + +------+ + | Care Snow Removing Supervisor Name | Role | Phone | + +------+ + | Marta Jenkins SPORTS EDITOR | PCP | | + +------+ + Encounter Details +--------+ + + + + | Date | Type | Department | Care Team | Description | +--------+ + + + + | 11/19/ | Documentati | Digestive Health | Wanda López ACNP | | | 2019 | on | Center at [facility] [address] | [address] | | | | | [address] | [place], | | | | | Mailcode: [place] | [place] [address] | | | | | for Health and | [phone] | | | | | [facility] [address] | | | | | | [place], [place] | | | | | | [address] | | | | | | [phone] | | | +--------+ + + + [...]
--- OUTSIDE RECORDS SUMMARY | ~2019-02-04 | XMS | Encounter Summary ---
Demographics + + + | Address | [address] | | | [place] [address] | + + + | Home Phone [...] Team Providers + +------+ + | Care Slab Tripper Name | Role | Phone | + +------+ + | Marta Jenkins PIANO BUILDER | PCP | | + +------+ + Encounter Details +--------+ + + + + | Date | Type | Department | Care Team | Description | +--------+ + + + + | 11/18/ | Abstract | Digestive Health | Clinic, Surgery | | | 2019 | | [place] [facility] [address] | | | | | | [address] | | | | | | Mailcode: [place] | | | | | | [facility] and | | | | | | Healing, [address] | | | | | | [facility] [place] | | | | | | [address] | | | | | | [phone] | | | +--------+ + + + [...]
--- OUTSIDE RECORDS SUMMARY | ~2019-02-04 | XMS | Clinical Summary ---
Demographics + + + | Address | [address] | | | [place] [address] | + + + | Home Phone | | + + + | Preferred Language | Unknown | + + + | Marital Status | Single | + + + | Mandaen Affiliation | Unknown | + + + | Race | Unknown | + + + | Ethnic Group | Unknown | + + + Author + + + | Author | [employer] | + + + | Organization | [facility] | + + + | Address | Unknown | + + + | Phone | Unavailable | + + + Support + + +---------+ + | Name | Relationship | Address | Phone | + + +---------+ + | Kristel Teresa | ECON | Unknown | | + + +---------+ + Care Team Providers + +------+ + | Care Pulmonary Nurse Practitioner Name | Role | Phone [...] [place] | | | | | | [address] | | | | | | | [...] +------+-------+ + | MEDICAID | [place]AST[place] | [id number] | | | [address] | | | N | | | | [place] | | | [place] | | | | [address] | | | MARBLE COPER | | | | | + +--------+ [...] Self | [birth year] | Home: | [address] | | | al/Fam | | 1959 | [phone] | [place] | | | gigi | | | [phone] | [address] | + +--------+ +--------+ + +
--- OUTSIDE RECORDS SUMMARY | ~2019-02-04 | XMS | Encounter Summary ---
Demographics + + + | Address | [address] | | | [place] [address] | + + + | Home Phone | | + + + | Preferred Language | Unknown | + + + | Marital Status | Single | + + + | Mandaen Affiliation | Unknown | + + + | Race | Unknown | + + + | Ethnic Group | Unknown | + + + Author + + + | Author | [email or web address] | + + + | Organization | [facility] | + + + | Address | Unknown | + + + | Phone | Unavailable | + + + Support + + +---------+ + | Name | Relationship | Address | Phone | + + +---------+ + | Kristel Teresa | ECON | Unknown | | + + +---------+ + Care Team Providers + +------+ + | Care Chief Talent Officer Name | Role | Phone | [...] Required | Medicine / | Radiculopath | PE TEACHER [address] | [address] | | | | Dolorology | y of lumbar | [address] | DR PETERSEN B | | | | | region | [place] [address] | [place], [place] | | | | | Osteoarthrit | [place], [place] | [address] Phone: | | | | | is of lumbar | [address] | [phone] | | | | | spine, | Phone: | Fax: | | | | | unspecified | [phone] | [phone] | | | | | spinal | Fax: | | | | | | osteoarthrit | [phone] | | | | | | is [...] + + | 12/04/ | Office | [facility] | Xiang Sepulveda, | Radiculopathy of | | 2019 | Visit | [facility] | DO [address] | lumbar region; Facet | | | | [address] | [place], [place] | arthropathy, | | | | [place] | [address] | lumbar; | | | | [address] | | Osteoarthritis of | | | | [phone] | | lumbar spine, | | | [...] therapy, mass age therapy, acupuncture, youth care professional, along with recommended psychological counseling , either privately, or in group sessions offered by private care individuals, community serv ices, or yarsani organizations. Appropriate referrals were made at patient [...] plan, Will return to office in 8weeks, [facility] was consulted and appears appropriate, Urine [...] dysfunction are noted in men and women. [facility] men will suffer erectile dysfunction with these [...] and complications with the passage of time. rodent exterminator use is also associated with depressions, [...] | | | | | [place] | | | | | | [address] | | | | | | | [...]
--- OUTSIDE RECORDS SUMMARY | ~2019-02-04 | XMS | Encounter Summary ---
Demographics + + + | Address | [address] | | | [place] [address] | + + + | Home Phone | | + + + | Preferred Language | Unknown | + + + | Marital Status | Single | + + + | Amish Affiliation | Unknown | + + + | Race | Unknown | + + + | Ethnic Group | Unknown | + + + Author + + + | Author | [employer] | + + + | Organization | [facility] | + + + | Address | Unknown | + + + | Phone | Unavailable | + + + Support + + +---------+ + | Name | Relationship | Address | Phone | + + +---------+ + | Kristel Teresa | ECON | Unknown | | + + +---------+ + Care Team Providers + +------+ + | Care Plant Chief Name | Role | Phone | [...] + + | 12/11/ | Telephone | [facility] | Xiang Sepulveda, | Medication Problem | | 2019 | | [facility] | DO [address] | (Change on Rx refill | | | | [address] | [place], [place] | order.) | | | | [place], [place] | [address] | | | | | [address] | | | | | | [phone] | | | +--------+ + + + [...] [place] | | | | | | [address] | | | | | | | | +--------+---------+ + + + as of this encounter Visit Diagnoses Not on filein this encounter"
--- OUTSIDE RECORDS SUMMARY | ~2019-02-04 | XMS | Encounter Summary ---
Demographics + + + | Address | [address] | | | [place] [address] | + + + | Home Phone | | + + + | Preferred Language | Unknown | + + + | Marital Status | Single | + + + | Jewish Affiliation | Unknown | + + + | Race | Unknown | + + + | Ethnic Group | Unknown | + + + Author + + + | Author | [employer] | + + + | Organization | [facility] | + + + | Address | Unknown | + + + | Phone | Unavailable | + + + Support + + +---------+ + | Name | Relationship | Address | Phone | + + +---------+ + | Kristel Teresa | ECON | Unknown | | + + +---------+ + Care Team Providers + +------+ + | Care Sports Anchor Name | Role | Phone | + [...] | | [address] | [place] [facility] [place] | | | | | [place] | [address] | | | | | [address] | | | | | | [phone] | | | +--------+ + + + [...] [place] | | | | | | [address] | | | | | | | | +--------+---------+ + + + as of this encounter Visit Diagnoses Not on filein this encounter"
--- OUTSIDE RECORDS SUMMARY | ~2019-02-04 | XMS | Encounter Summary ---
Demographics + + + | Address | [address] | | | [place] [address] | + + + | Home Phone | | + + + | Preferred Language | Unknown | + + + | Marital Status | Single | + + + | Gnosticism Affiliation | Unknown | + + + | Race | Unknown | + + + | Ethnic Group | Unknown | + + + Author + + + | Author | [employer] | + + + | Organization | [facility] | + + + | Address | Unknown | + + + | Phone | Unavailable | + + + Support + + +---------+ + | Name | Relationship | Address | Phone | + + +---------+ + | Kristel Teresa | ECON | Unknown | | + + +---------+ + Care Team Providers + +------+ + | Care Archeologist Classical Name | Role | Phone | + [...] Sepulveda, | | | 2018 | | [facility] | DO [address] | | | | | [address] | [place] | | | | | [place] | [address] | | | | | [address] | | | | | | [phone] | | | +--------+--------+ + + + [...] [place] | | | | | | [address] | | | | | | | | +--------+---------+ + + + as of this encounter Visit Diagnoses Not on filein this encounter"
--- OUTSIDE RECORDS SUMMARY | ~2019-02-04 | XMS | Encounter Summary ---
Demographics + + + | Address | [address] | | | [place] [address] | + + + | Home Phone [...] Team Providers + +------+ + | Care Fixed Wing Aircraft Flight Mechanic Name | Role | Phone | + +------+ + | Marta Jenkins MAT MAKING MACHINE TENDER | PCP | | + +------+ + Encounter Details +--------+ + + + + | Date | Type | Department | Care Team | Description | +--------+ + + + + | 11/19/ | Documentati | Digestive Health | Clinic, Surgery | | | 2019 | on | [place] [facility] [address] | | | | | | [address] | | | | | | Mailcode: [place] | | | | | | for Health and | | | | | | Healing, Building [address] | | | | | | [place], [place] | | | | | | [address] | | | | | | [phone] | | | +--------+ + + + [...]
--- OUTSIDE RECORDS SUMMARY | ~2019-02-04 | XMS | Encounter Summary ---
Demographics + + + | Address | [address] | | | [place] [address] | + + + | Home Phone [...] Providers + +------+ + | Care Technical Sme Name | Role | Phone | + +------+ + | Marta Jenkins BRAZING MACHINE TENDER | PCP | | + +------+ + Encounter Details +--------+ + + + + | Date | Type | Department | Care Team | Description | +--------+ + + + + | 11/18/ | Abstract | Digestive Health | Clinic, Surgery | | | 2019 | | [place] [facility] [address] | | | | | | [address] | | | | | | Mailcode: [place] | | | | | | [facility] and | | | | | | Healing, [address] | | | | | | [facility] [place] | | | | | | [address] | | | | | | [phone] | | | +--------+ + + + [...]
--- OUTSIDE RECORDS SUMMARY | ~2019-02-04 | XMS | Clinical Summary ---
Demographics + + + | Address | [address] | | | [place] [address] | + + + | Home Phone [...] Team Providers + +------+ + | Care Back Pad Inspector Name | Role | Phone | + +------+ + | Marta Jenkins MARKETING CONTENT SPECIALIST | PP | | + +------+ + Source Comments LION is fully live on both [facility] Ambulatory and [facility] InPatient.[facility] Allergies + + + + [...] | | + + + +---------+------+------+-------+ | Reagan-3 Fatty | Take by mouth. | | [...] + + + + | 11/19/ | Jailkeeper | | Petcu, Aura, ACNP | Morbid [...] | | | + +--------+ +--------+-------+---------+ | DISCHARGING MACHINE OPERATOR MEDICAID | DISCHARGING MACHINE OPERATOR | xxxxxxxx | Medica | [...] | Self | [birth year] | Home: | [address] | | | al/Fam | | 1959 | [phone] | [address] [place], [place] | | | gigi | | | [address] | [address] | + +--------+ +--------+ + + | SHELBY GALDAMEZ | Third | Self | [birth year] | Home: | [address] | | | Libertarian | | 1959 | [phone] | [address] [place], [place] | | | Liabil | | | [address] | [address] | | | ity | | | | | + +--------+ +--------+ + +
--- OUTSIDE RECORDS SUMMARY | ~2019-02-04 | XMS | Encounter Summary ---
Demographics + + + | Address | [address] | | | [place] [address] | + + + | Home Phone | | + + + | Preferred Language | Unknown | + + + | Marital Status | Single | + + + | Christianity Affiliation | Unknown | + + + | Race | Unknown | + + + | Ethnic Group | Unknown | + + + Author + + + | Author | [employer] | + + + | Organization | [email or web address] | + + + | Address | Unknown | + + + | Phone | Unavailable | + + + Support + + +---------+ + | Name | Relationship | Address | Phone | + + +---------+ + | Kristel Teresa | ECON | Unknown | | + + +---------+ + Care Team Providers + +------+ + | Care Tacking Stitch Remover Name | Role | Phone | [...] | Medicine / | Radiculopath | AIRCRAFT MECHANIC STRUCTURES [address] | [address] | | | | Dolorology | y of lumbar | [address] | DR [address] | | | | | region | [address] | [place], [place] | | | | | Osteoarthrit | [place], [place] | [address] Phone: | | | | | is of lumbar | [address] | [phone] | | | | | spine, | Phone: | Fax: | | | | | unspecified | [phone] | [phone] | | | | | spinal | Fax: | | | | | | osteoarthrit | [phone] | | | | | | is [...] + + | 01/29/ | Office | [facility] | Xiang Sepulveda, | Radiculopathy of | | 2019 | Visit | [facility] | DO [address] | lumbar region | | | | [address] | [facility] [facility] [place] | (Primary Dx); Facet | | | | [place] | [address] | arthropathy, lumbar; | | | | [address] | | Osteoarthritis of | | | | [phone] | | lumbar spine, | | | [...] to physical therapy, mass age therapy, acupuncture, daycare teacher, along with recommended psychological counseling , either privately, or in group sessions offered by private care individuals, community serv ices, or mu-ism organizations. Appropriate referrals were made at patient [...] plan, Will return to office in 8weeks, [facility] MOTORCYCLE SALES ASSOCIATE was consulted and appears appropriate, Urine Toxicology [...] and complications with the passage of time. watermaster use is also associated with depressions, and [...] | | | | | [place], [place] | | | | | | [address] | | | | | | | [...]
--- OUTSIDE RECORDS SUMMARY | ~2019-02-04 | XMS | Clinical Summary ---
Demographics + + + | Address | [address] | | | [place] [address] | + + + | Home Phone [...] Team Providers + +------+ + | Care Panman Name | Role | Phone | + +------+ + | Marta Jenkins LUMBER STACKER | PP | | + +------+ + Source Comments LION is fully live on both [facility] Ambulatory and [facility] InPatient.[facility] at [...] | | + + + +---------+------+------+-------+ | Willard-3 Fatty | Take by mouth. | | [...] + + + + | 11/19/ | Forensic Pathologist | | Petcu, Aura, ACNP | Morbid [...] | | | + +--------+ +--------+-------+---------+ | CAREER PORTALS TEACHER MEDICAID | CAREER PORTALS TEACHER | xxxxxxxx | Medica | | | [...] | Self | [birth year] | Home: | [address] | | | al/Fam | | 1959 | [phone] | [address] [place], [place] | | | gigi | | | [address] | [address] | + +--------+ +--------+ + + | SHELBY GALDAMEZ | Third | Self | [birth year] | Home: | [address] | | | Libertarian | | 1959 | [phone] | [address] [place], [place] | | | [place] | | | [address] | [address] | | | ity | | | | | + +--------+ +--------+ + +
--- OUTSIDE RECORDS SUMMARY | ~2019-02-04 | XMS | Encounter Summary ---
Demographics + + + | Address | [address] | | | [place] [address] | + + + | Home Phone | | + + + | Preferred Language | Unknown | + + + | Marital Status | Single | + + + | Mormonism Affiliation | Unknown | + + + | Race | Unknown | + + + | Ethnic Group | Unknown | + + + Author + + + | Author | [employer] | + + + | Organization | [facility] | + + + | Address | Unknown | + + + | Phone | Unavailable | + + + Support + + +---------+ + | Name | Relationship | Address | Phone | + + +---------+ + | Kristel Teresa | ECON | Unknown | | + + +---------+ + Care Team Providers + +------+ + | Care Wood Fuel Pelletizer Name | Role | Phone | + [...] Sepulveda, | | | 2018 | | [facility] | DO [address] | | | | | [address] | [place] | | | | | [place] | [address] | | | | | [address] | | | | | | [phone] | | | +--------+--------+ + + + [...] [place] | | | | | | [address] | | | | | | | | +--------+---------+ + + + as of this encounter Visit Diagnoses Not on filein this encounter"
--- OUTSIDE RECORDS SUMMARY | ~2019-02-04 | XMS | Encounter Summary ---
Demographics + + + | Address | [address] | | | [place] [address] | + + + | Home Phone [...] Providers + +------+ + | Care Customer Assistance Representative Name | Role | Phone | + +------+ + | Marta Jenkins ELDER COUNSELOR | PCP | | + +------+ + Encounter Details +--------+ + + + + | Date | Type | Department | Care Team | Description | +--------+ + + + + | 11/19/ | Documentati | Digestive Health | Wanda López ACNP | | | 2019 | on | Center at [facility] [address] | [address] | | | | | [address] | [place], | | | | | Mailcode: [place] | [place] [address] | | | | | for Health and | [phone] | | | | | [facility] [address] | | | | | | [place], [place] | | | | | | [address] | | | | | | [phone] | | | +--------+ + + + [...]
--- OUTSIDE RECORDS SUMMARY | ~2019-02-04 | XMS | Encounter Summary ---
Demographics + + + | Address | [address] | | | [place] [address] | + + + | Home Phone | | + + + | Preferred Language | Unknown | + + + | Marital Status | Single | + + + | Scientology Affiliation | Unknown | + + + | Race | Unknown | + + + | Ethnic Group | Unknown | + + + Author + + + | Author | [employer] | + + + | Organization | [facility] | + + + | Address | Unknown | + + + | Phone | Unavailable | + + + Support + + +---------+ + | Name | Relationship | Address | Phone | + + +---------+ + | Kristel Teresa | ECON | Unknown | | + + +---------+ + Care Team Providers + +------+ + | Care Pattern Filer Name | Role | Phone | + [...] Required | Medicine / | Radiculopath | BOAT LOADER [address] | [address] | | | | Dolorology | y of lumbar | [address] | DR [address] | | | | | region | [address] | [place], [place] | | | | | Osteoarthrit | [place], [place] | [address] Phone: | | | | | is of lumbar | [address] | [phone] | | | | | spine, | Phone: | Fax: | | | | | unspecified | [phone] | [phone] | | | | | spinal | Fax: | | | | | | osteoarthrit | [phone] | | | | | | is [...] + + | 01/29/ | Office | [facility] | Xiang Sepulveda, | Radiculopathy of | | 2019 | Visit | [facility] | DO [address] | lumbar region | | | | [address] | [facility] [place] | (Primary Dx); Facet | | | | [place] | [address] | arthropathy, lumbar; | | | | [address] | | Osteoarthritis of | | | | [phone] | | lumbar spine, | | | [...] to physical therapy, mass age therapy, acupuncture, long term care phlebotomist, along with recommended psychological counseling , either privately, or in group sessions offered by private care individuals, community serv ices, or islam organizations. Appropriate referrals were made at patient [...] plan, Will return to office in 8weeks, [facility] ALLIANCE MANAGER was consulted and appears appropriate, Urine Toxicology [...] | | | | | [place], [place] | | | | | | [address] | | | | | | | [...]
[~2019-02-04 14:20] MED LIST changes: +CYCLOBENZAPRINE10 MG PO; +DICLOFENAC SOD100 G1; +IBUPROFEN800 MG PO
--- OUTSIDE RECORDS SUMMARY | 2019-02-04 14:22 | XMS ---
PreManage Notification: CHASTITY BONILLA Security Pipeline Technician Events 1 event(s) in the past 18 months Most recent security events: Verbal at [facility] 06/24/2018 19:26 - Patient was verbally abusive towards care providers, staff or patient. Details: PATIENT IS VERBALLY ABUSIVE TOWARDS STAFF AND PLANT HEALTH MANAGER CRITERIA MET - Group Notification - [facility] - Has Care Guidelines - PDMP - [facility] - 2 Visits in 30 Days CARE PROVIDERS ALANIS AGUILA [facility] 02/02/2019-Current PHONE: [phone] SERGIO ISSA Nurse Practitioner Current PHONE: [phone] Cindy Herrera [employer]/Oracle Er[employer] Developer 07/31/2013-Current PHONE: [phone] DANIELAYAN, Family Medicine 06/23/2018-Mihai Cardona PHONE: Unknown EDIS PORRAS Primary Care 08/30/2017-Current PHONE: [phone] Cindy Herrera Primary Care 07/31/2013-Current PHONE: [phone] Eyad Vicente Current PHONE: Unknown Guidelines Source: [facility] Guidelines Date: 01/22/2018 Care Coordination: PATIENT HAS NEW PCP - EDIS PORRAS AT [place], [place]. PATIENT WAS DISCHARGED FROM PAIN CONTRACT AT PCP DUE TO +DRUG SCREENS/ NO LONGER GETTING OPIOIDS FROM PCP PATIENT HAS A TOXICOLOGY SCREEN 4/18/18 THAT WAS POSITIVE FOR METHAMPHETAMINES USE CAUTION WITH NARCOTIC USE PLAN: CONTACT CASE MANAGEMENT TO SEE PATIENT IN EXAM ROOM WHEN IN ED DURING BUSINESS HOURS. ATTEMPT WILL BE MADE TO INVOLVE DRUG/ALCOHOL SERVICES TO SEE PATIENT. Care History Social 12/26/2017 [facility] - Patient has been discharged from [facility] services due to not following through with any help and or services. - Patient admits to marijuana usage, please take this into consideration when providing treatment for nausea/stomach upset (clinical judgement) - Patient currently receives caregivers through [facility] case management coordinator is Willa. Substance Use/Overdose 11/27/2016 [facility] UPDATE BY PCP: PATIENT HAS FAILED 3 DRUG SCREENS INCLUDING POSITIVE FOR METHAMPHETAMINESIN A ROW AT PCP CLINIC. USE CAUTION WHEN GIVING NARCOTICS. AVOID HOME RX FOR NARCOTICS. CALL [facility] [phone] FOR RECOMMENDATIONS ON PAIN MEDS 10/24/2016 [facility] PT HAS HISTORY OF DRUG SEEKING BEHAVIOR. UNDER PAIN CONTRACT WITH PCP. PT DID NOT PASS RECENT RANDOM DRUG SCREEN WITH PCP. Medical/Surgical 06/25/2018 [facility] - Pain Clinic Management- [facility] Neuro Science- Dr Bess Pain Management PCP. - Provider will discuss with patient about long term placement. - PATIENT HAS A PCP APT @ 1:00 06/25/18. - PATIENT IS CURRENTLY PRESCRIBED 5/235 PERCOCET FOR EVERY 8 HOURS PER PAIN MANAGEMENT CLINIC. 06/24/2018 [facility] - PATIENT CALLED PCP OFFICE ON [...] CAUTIOUS PATIENT TESTS POSITIVE FOR METHAMPHETAMINES. 11/20/2017 [facility] Care Recommendation: This patient has had 5 or more Emergency Department visits in the last 12 months. Patient requires education on the scope and purpose of the ED as an acute care provider not a Primary Care Provider and should not be utilized for chronic conditions. If patient returns to ED please contact Community Health WorkerElizabeth at [phone]. These are guidelines and the provider should exercise clinical judgment when providing care. Ayden VISIT COUNT (12 MO.) 6 [facility] TOTAL 6 NOTE: Visits indicate total known visits. ED/UCC VISIT TRACKING (12 MO.) 02/04/2019 14:20 [facility] [place] TYPE: Emergency COMPLAINT: - WEAKNESS 01/29/2019 01:11 [facility] [place] TYPE: Emergency COMPLAINT: - FALL DIAGNOSES: - Allergy status to other antibiotic agents status - Other chronic pain - Allergy status to narcotic agent status - Other usp (current) drug therapy - Pain in left hip - Major depressive disorder, single episode, unspecified - Essential (primary) hypertension - Nicotine dependence, unspecified, uncomplicated - Wheezing - Unspecified fall, initial encounter - Urinary tract infection, site not specified - Chronic obstructive pulmonary disease, unspecified - half-way (current) use of opiate analgesic - Pain in right shoulder 07/13/2018 21:38 [facility] [place] TYPE: Emergency [...] - Pain in left hip - Other usp (current) drug therapy - Low back pain - Allergy status to narcotic agent status - Essential (primary) hypertension 06/24/2018 19:26 [facility] [place] TYPE: Emergency DIAGNOSES: - Other usp (current) drug therapy - Allergy status to [...] medicaments and biological substances status - Other parts counterman (current) drug therapy - Chronic obstructive pulmonary disease, unspecified - Essential (primary) hypertension - parts counterman (current) use of inhaled steroids - Allergy status to other antibiotic agents status - Urinary tract infection, site not specified - Nicotine dependence, unspecified, uncomplicated - Major depressive disorder, single episode, unspecified - Other stimulant abuse, uncomplicated INPATIENT VISIT TRACKING (12 MO.) No inpatient visits to display in this time frame [email or web address]
[2019-02-04] MEDS ORDERED: FLAGYL500 MG PO (16:50)
[2019-02-04] MEDS ORDERED: CIPRO500 MG PO (16:50)
== END 2019-02-04 17:23 | disposition home or self-care (01) ==
LOC: ED 14:20
DX: K57.32 Diverticulitis of large intestine without perforation or abscess without bleeding (principal); F32.9 Major depressive disorder, single episode, unspecified; I10 Essential (primary) hypertension; J44.9 Chronic obstructive pulmonary disease, unspecified; F17.200 Nicotine dependence, unspecified, uncomplicated; Z88.1 Allergy status to other antibiotic agents; Z88.8 Allergy status to other drugs, medicaments and biological substances; Z88.5 Allergy status to narcotic agent; Z79.899 Other long term (current) drug therapy; Z79.891 Long term (current) use of opiate analgesic
CPT/HCPCS: 73630; 74176; 80048; 81001; 85025; 99284-25

== ENCOUNTER 2019-02-26 08:01 | Emergency (ER) | payer OTHER ==
[~2019-02-26] VITALS: Ht 162.6 cm; Wt 136.2 kg
--- OUTSIDE RECORDS SUMMARY | ~2019-02-26 | XMS | Encounter Summary ---
Demographics + + + | Address | [address] | | | [place] [address] | + + + | Home Phone | | + + + | Preferred Language | Unknown | + + + | Marital Status | Single | + + + | Restoration Affiliation | PRE | + + + | Race | White | + + + | Ethnic Group | Not or | + + + Author + + + | Organization | Unknown | + + + | Address | Unknown | + + + | Phone | Unavailable | + + + Support + + + + + | Name | Relationship | Address | Phone | + + + + + | Casandra Smith | ROBERTO | [place] | | + + + + + Care Team Providers + +------+ + | Care Manipulator Operator Name | Role | Phone | + +------+ + PCP | Unavailable | + +------+ + Encounter Details +--------+ + + + + | Date | Type | Department | Care Team | Description | +--------+ + + + + | 11/22/ | Results | | Other, Faculty | | | 2003 | Only | | [phone] | | +--------+ + + + + Social History + +-------+ +--------+------+ | Tobacco Use | Types | Packs/Day | Years | Date | | | | | Used | | + +-------+ +--------+------+ | Never Assessed | | | | | + +-------+ +--------+------+ + + + | Sex Assigned at | Date Recorded | | | | + + + | Not on file | | + + + + + + + | Job Start Date | Occupation | Industry | + + + + | Not on file | Not on file | Not on file | + + + + + + + + | Travel History | Travel Start | Travel End | + + + + + + | No recent travel history available. | + + documented as of this encounter Plan of Treatment Not on filedocumented as of this encounter Procedures + +--------+ + + + | Procedure Name | Priori | Date/Time | Associated Diagnosis | Comments | | | ty | | | | + +--------+ + + + | FUNGUS PRELIMINARY 1 | Routin | 11/22/2003 | | Results for this | | | e | 11:00 AM | | procedure are in the | | | | PST | | results section. | + +--------+ + + + | AFB PRELIM 1 | Routin | 11/22/2003 | | Results for this | | | e | 11:00 AM | | procedure are in the | | | | PST | | results section. | + +--------+ + + + | FUNGAL SMEAR ONLY | Routin | 11/22/2003 | | Results for this | | | e | 11:00 AM | | procedure are in the | | | | PST | | results section. | + +--------+ + + + | ACID FAST BACILLI, | Routin | 11/22/2003 | | Results for this | | SMEAR ONLY | e | 11:00 AM | | procedure are in the | | | | PST | | results section. | + +--------+ + + + | CULTURE, FUNGAL & | Routin | 11/22/2003 | | Results for this | | SMEAR | e | 11:00 AM | | procedure are in the | | | | PST | | results section. | + +--------+ + + + | CULTURE, AFB (ALL | Routin | 11/22/2003 | | Results for this | | SPEC TYPES EXCEPT | e | 11:00 AM | | procedure are in the | | BLOOD) | | PST | | results section. | + +--------+ + + + | CULTURE, WOUND BACTI | Routin | 11/22/2003 | | Results for this | | & GS | e | 11:00 AM | | procedure are in the | | | | PST | | results section. | + +--------+ + + + documented in this encounter Results CULT, AFB (ALL SPECIMEN TYPES) (11/22/2003 11:00 AM PST) + + + + + + | Component | Value | Ref Range | Performed | Pathologist | | | | | At | Signature | + + + + + + | SOURCE BODY | Right Hip Infection | | | | | SITE | | | | | + + + + + + | CULTURE | Acid Fast | | | | | RESULT | Bacilli Culture | | | | | | | | | | | | Source.............: | | | | | | Right Hip Infection | | | | | | RLB FA | | | | | | Stain...........: | | | | | | AFB NOT detected. | | | | | | Preliminary | | | | | | 1......: Acid Fast | | | | | | Bacilli NOT detected at | | | | | | 4 weeks. Final | | | | | | Report.......: Acid | | | | | | Fast Bacilli NOT | | | | | | detected at 6 weeks. | | | | + + + + + + + + | Specimen | + + | | + + + + + | Narrative | Performed At | + + + | Ordered by SANJIV JAIN | | + + + + + + + + | Performing | Address | City/State/Zipcode | Phone Number | | Organization | | | | + + + + + | [facility] | [address] | [place] [address] | | | LAB-MICRO | | | | + + + + + AFB PRELIM 1 (11/22/2003 11:00 AM PST) + + + + + + | Component | Value | Ref Range | Performed | Pathologist | | | | | At | Signature | + + + + + + | PRELIMINARY | Acid Fast Bacilli NOT | | | | | 1 | detected at 4 weeks. | | | | + + + + + + + + | Specimen | + + | | + + + + + | Narrative | Performed At | + + + | Ordered by SANJIV JAIN | | + + + + + + + + | Performing | Address | City/State/Zipcode | Phone Number | | Organization | | | | + + + + + | [facility] | [address] | [place] [address] | | | LAB-MICRO | | | | + + + + + ACID FAST BACILLI, SMEAR ONLY (11/22/2003 11:00 AM PST) + + + + + + | Component | Value | Ref Range | Performed | Pathologist | | | | | At | Signature | + + + + + + | SOURCE BODY | Right Hip Infection | | | | | SITE | | | | | + + + + + + | FLUOROCHROM | AFB NOT detected. | | | | | E STAIN | | | | | + + + + + + + + | Specimen | + + | | + + + + + | Narrative | Performed At | + + + | Ordered george JAIN | | + + + + + + + + | Performing | Address | City/State/Zipcode | Phone Number | | Organization | | | | + + + + + | [facility] | [address] | [place] [address] | | | LAB-MICRO | | | | + + + + + CULT, WOUND REHANI & NITZA (11/22/2003 11:00 AM PST) + + + + + + | Component | Value | Ref Range | Performed | Pathologist | | | | | At | Signature | + + + + + + | SOURCE BODY | Right Hip Infection | | | | | SITE | | | | | + + + + + + | CULTURE | Wound Culture | | | | | RESULT | | | | | | | Source...............: | | | | | | Right Hip Infection RLB | | | | | | Gram Stain...........: | | | | | | Many | | | | | | PMN's | | | | | | | | | | | | No | | | | | | Epithelial | | | | | | cells | | | | | | | | | | | | No | | | | | | organisms seen. | | | | | | Culture: Prelimin | | | | | | jose roberto Report: Culture | | | | | | Received, No growth | | | | | | to | | | | | | date. Final | | | | | | Report: No growth after | | | | | | 72 hours Final | | | | | | Report | | | | + + + + + + + + | Specimen | + + | | + + + + + | Narrative | Performed At | + + + | Ordered by SANJIV JAIN | | + + + + + + + + | Performing | Address | City/State/Zipcode | Phone Number | | Organization | | | | + + + + + | [facility] | [address] | [place] [address] | | | LAB-MICRO | | | | + + + + + CULT, FUNGAL (& SMEAR) (11/22/2003 11:00 AM PST) + + + + + + | Component | Value | Ref Range | Performed | Pathologist | | | | | At | Signature | + + + + + + | SOURCE BODY | Right Hip Infection | | | | | SITE | | | | | + + + + + + | CULTURE | Fungus Culture | | | | | RESULT | Culture Source | | | | | | ....: Right Hip | | | | | | Infection | | | | | | Smear..............: | | | | | | No fungus or yeast seen | | | | | | Preliminary | | | | | | 1......: Fungus NOT | | | | | | detected at 2 weeks RLB | | | | | | Final Report: Fungus | | | | | | NOT isolated after 4 | | | | | | weeks. | | | | + + + + + + + + | Specimen | + + | | + + + + + | Narrative | Performed At | + + + | Ordered by SANJIV JAIN | | + + + + + + + + | Performing | Address | City/State/Zipcode | Phone Number | | Organization | | | | + + + + + | [facility] | [address] | [place] [address] | | | LAB-MICRO | | | | + + + + + FUNGUS PRELIMINARY 1 (11/22/2003 11:00 AM PST) + + + + + + | Component | Value | Ref Range | Performed | Pathologist | | | | | At | Signature | + + + + + + | PRELIM | Fungus NOT detected at 2 | | | | | FUNGAL ISOL | weeks | | | | + + + + + + + + | Specimen | + + | | + + + + + | Narrative | Performed At | + + + | Mckayla JAIN | | + + + + + + + + | Performing | Address | City/State/Zipcode | Phone Number | | Organization | | | | + + + + + | [facility] | [address] | [place] [address] | | | LAB-MICRO | | | | + + + + + FUNGAL SMEAR ONLY (11/22/2003 11:00 AM PST) + + + + + + | Component | Value | Ref Range | Performed | Pathologist | | | | | At | Signature | + + + + + + | CALCOFLUOR | No fungus or yeast seen | | | | | WHITE STAIN | | | | | | ONLY | | | | | + + + + + + | SOURCE BODY | Right Hip Infection | | | | | SITE | | | | | + + + + + + + + | Specimen | + + | | + + + + + | Narrative | Performed At | + + + | Ordered george JAIN | | + + + + + + + + | Performing | Address | City/State/Zipcode | Phone Number | | Organization | | | | + + + + + | [facility] | [id number] | [place] [address] | | | LAB-MICRO | | | | + + + + + documented in this encounter Visit Diagnoses Not on filedocumented in this encounter"
--- OUTSIDE RECORDS SUMMARY | ~2019-02-26 | XMS | Encounter Summary ---
Demographics + + + | Address | [address] | | | [place] [address] | + + + | Home Phone | | + + + | Preferred Language | Unknown | + + + | Marital Status | Single | + + + | Mosque Affiliation | PRE | + + + | Race | White | + + + | Ethnic Group | Not or | + + + Author + + + | Author | [facility] | + + + | Organization | [facility] | + + + | Address | Unknown | + + + | Phone | Unavailable | + + + Support + + + + + | Name | Relationship | Address | Phone | + + + + + | Casandra Smith | ROBERTO | [place] | | + + + + + Care Team Providers + +------+ + | Care Fire Sprinkler Installer Name | Role | Phone | + +------+ + PCP | Unavailable | + +------+ + Encounter Details +--------+ + + + + | Date | Type | Department | Care Team | Description | +--------+ + + + + | 04/18/ | Results | Orthopaedics at | Lloyd Garcia MD | | | 1998 | Only | [facility] [address] | | | | | | [facility] | | | | | | Mailcode: [id number] | | | | | | Physician'yokasta Ocampo | | | | | | [place], [place] | | | | | | [address] | | | | | | [phone] | | | +--------+ + + + [...] | + +--------+ + + + | CT EXTREMITY, LOWER, | Routin | 06/29/1999 | | Results for this | | LIMITED | e | 3:00 PM | | procedure are in the | | | | PDT | | results section. | + +--------+ + + + | ARTHROGRAM HIP SUP & | Routin | 06/29/1999 | | Results for this | | INT | e | 2:32 PM | | procedure are in the | | | | PDT | | results section. | + +--------+ + + + | HIP, 2 VIEWS | Routin | 04/18/1999 | | Results for this | | | e | 9:20 AM | | procedure are in the | | | | PDT | | results section. | + +--------+ + + + | X-RAY PELVIS 1 VIEW | Routin | 04/18/1999 | | Results for this | | | e | 9:20 AM | | procedure are in the | | | | PDT | | results section. | + +--------+ + + + documented in this encounter Results CT EXTREMITY, LOWER, LIMITED (06/29/1999 3:00 PM PDT) + + + + + + | Component | Value | Ref Range | Performed | Pathologist | | | | | At | Signature | + + + + + + | CT | Radiologist 1: NGUYEN, | | | | | EXTREMITY, | Malcom CASTILLORIGHT | | | | | LOWER, | HIP ARTHROGRAM, STEROID | | | | | LIMITED | INJECTION, AND | | | | | | COMPUTERIZED | | | | | | TOMOGRAPHYARTHROGRAM: | | | | | | 06/29/99 at 1432 | | | | | | hours. Dictated: | | | | | | 06/29/99 | | | | | | HISTORY: This is a | | | | | | 39-year-old female with | | | | | | severe degenerative | | | | | | jointdisease of the | | | | | | right hip. A CT | | | | | | arthrogram and | | | | | | therapeutic | | | | | | steroidinjection are | | | | | | requested for surgical | | | | | | planning and pain | | | | | | relief. | | | | | | PROCEDURE: Dr. Fox | | | | | | obtained informed | | | | | | consent from the | | | | | | patient. Theprocedure | | | | | | was performed by | | | | | | Nguyen and | | | | | | Ruddy. The | | | | | | anteriorright hip was | | | | | | prepped and draped in | | | | | | the usual sterile | | | | | | fashion. 1%lidocaine was | | | | | | used for local | | | | | | anesthesia. Under | | | | | | fluoroscopic guidance,a | | | | | | 20-gauge 4-1/2 spinal | | | | | | needle was advanced into | | | | | | the anteromedial | | | | | | hipjoint capsule. 2 | | | | | | cc of Hypaque 60 and 2 | | | | | | cc of Celestone | | | | | | wereinjected, followed | | | | | | by 5 cc injection of | | | | | | air. Standard | | | | | | arthrogramimages were | | | | | | obtained. A CT scan | | | | | | was performed in the | | | | | | axial planeusing 3 mm | | | | | | spiral acquisition with | | | | | | 2 mm | | | | | | overlap. Reformatted | | | | | | sagittaland coronal | | | | | | images were performed. | | | | | | FINDINGS: The special education assistant | | | | | | radiographs show severe | | | | | | degenerative | | | | | | narrowingand marginal | | | | | | spurring of the right | | | | | | hip. The arthrogram | | | | | | demonstrates uniformly | | | | | | thin articular cartilage | | | | | | overthe superior and | | | | | | axial surfaces of the | | | | | | femoral head, with a | | | | | | maximumthickness of | | | | | | approximately 2 mm | | | | | | axially and less than 2 | | | | | | mm over thesupralateral | | | | | | surface. Contrast did | | | | | | not cover the | | | | | | acetabularcartilage. | | | | | | No filling defects, such | | | | | | as loose bodies, were | | | | | | seen. TheCT | | | | | | arthrogram demonstrates | | | | | | denuded cartilage of the | | | | | | posterior | | | | | | superiorfemoral head and | | | | | | acetabulum with a bone | | | | | | on bone | | | | | | appearance,subchondral | | | | | | sclerosis and | | | | | | subchondral cyst | | | | | | formation on both sides | | | | | | ofthe joint. There is | | | | | | mildly thin but present | | | | | | articular cartilage | | | | | | overthe supralateral and | | | | | | axial femoral | | | | | | head. There is | | | | | | complete absenceof | | | | | | articular cartilage of | | | | | | the anterior acetabulum. | | | | | | IMPRESSION: | | | | | | 1. Severe | | | | | | degenerative joint | | | | | | disease of the right | | | | | | hip, with | | | | | | completedenuding of | | | | | | articular cartilage of | | | | | | the superior posterior | | | | | | acetabulumand focal | | | | | | absence of articular | | | | | | cartilage of the | | | | | | anterior | | | | | | acetabulum.There is | | | | | | thinning of the | | | | | | superolateral and axial | | | | | | femoral | | | | | | articularcartilage, with | | | | | | the thickest cartilage | | | | | | located axially along | | | | | | thefemoral head. END | | | | | | OF IMPRESSION: | | | | + + + + + + + + | Specimen | + + | | + + + +---------+ + + | Performing | Address | City/State/Zipcode | Phone Number | | Organization | | | | + +---------+ + + | [facility] | | | | | [facility] | | | | + +---------+ + + ARTHROGRAM HIP SUP & INT (06/29/1999 2:32 PM PDT) + + + + + + | Component | Value | Ref Range | Performed | Pathologist | | | | | At | Signature | + + + + + + | ARTHROGRAM | Radiologist 1: NGUYEN, | | | | | HIP SUP & | Malcom CASTILLORIGHT | | | | | INT | HIP ARTHROGRAM, STEROID | | | | | | INJECTION, AND | | | | | | COMPUTERIZED | | | | | | TOMOGRAPHYARTHROGRAM: | | | | | | 06/29/99 at 1432 | | | | | | hours. Dictated: | | | | | | 06/29/99 | | | | | | HISTORY: This is a | | | | | | 39-year-old female with | | | | | | severe degenerative | | | | | | jointdisease of the | | | | | | right hip. A CT | | | | | | arthrogram and | | | | | | therapeutic | | | | | | steroidinjection are | | | | | | requested for surgical | | | | | | planning and pain | | | | | | relief. | | | | | | PROCEDURE: Dr. Fox | | | | | | obtained informed | | | | | | consent from the | | | | | | patient. Theprocedure | | | | | | was performed by | | | | | | Rachid | | | | | | Ruddy. The | | | | | | anteriorright hip was | | | | | | prepped and draped in | | | | | | the usual sterile | | | | | | fashion. 1%lidocaine was | | | | | | used for local | | | | | | anesthesia. Under | | | | | | fluoroscopic guidance,a | | | | | | 20-gauge 4-1/2 spinal | | | | | | needle was advanced into | | | | | | the anteromedial | | | | | | hipjoint capsule. 2 | | | | | | cc of Hypaque 60 and 2 | | | | | | cc of Celestone | | | | | | wereinjected, followed | | | | | | by 5 cc injection of | | | | | | air. Standard | | | | | | arthrogramimages were | | | | | | obtained. A CT scan | | | | | | was performed in the | | | | | | axial planeusing 3 mm | | | | | | spiral acquisition with | | | | | | 2 mm | | | | | | overlap. Reformatted | | | | | | sagittaland coronal | | | | | | images were performed. | | | | | | FINDINGS: The special education assistant | | | | | | radiographs show severe | | | | | | degenerative | | | | | | narrowingand marginal | | | | | | spurring of the right | | | | | | hip. The arthrogram | | | | | | demonstrates uniformly | | | | | | thin articular cartilage | | | | | | overthe superior and | | | | | | axial surfaces of the | | | | | | femoral head, with a | | | | | | maximumthickness of | | | | | | approximately 2 mm | | | | | | axially and less than 2 | | | | | | mm over thesupralateral | | | | | | surface. Contrast did | | | | | | not cover the | | | | | | acetabularcartilage. | | | | | | No filling defects, such | | | | | | as loose bodies, were | | | | | | seen. TheCT | | | | | | arthrogram demonstrates | | | | | | denuded cartilage of the | | | | | | posterior | | | | | | superiorfemoral head and | | | | | | acetabulum with a bone | | | | | | on bone | | | | | | appearance,subchondral | | | | | | sclerosis and | | | | | | subchondral cyst | | | | | | formation on both sides | | | | | | ofthe joint. There is | | | | | | mildly thin but present | | | | | | articular cartilage | | | | | | overthe supralateral and | | | | | | axial femoral | | | | | | head. There is | | | | | | complete absenceof | | | | | | articular cartilage of | | | | | | the anterior acetabulum. | | | | | | IMPRESSION: | | | | | | 1. Severe | | | | | | degenerative joint | | | | | | disease of the right | | | | | | hip, with | | | | | | completedenuding of | | | | | | articular cartilage of | | | | | | the superior posterior | | | | | | acetabulumand focal | | | | | | absence of articular | | | | | | cartilage of the | | | | | | anterior | | | | | | acetabulum.There is | | | | | | thinning of the | | | | | | superolateral and axial | | | | | | femoral | | | | | | articularcartilage, with | | | | | | the thickest cartilage | | | | | | located axially along | | | | | | thefemoral head. END | | | | | | OF IMPRESSION: | | | | + + + + + + + + | Specimen | + + | | + + + +---------+ + + | Performing | Address | City/State/Zipcode | Phone Number | | Organization | | | | + +---------+ + + | [facility] | | | | | [facility] | | | | + +---------+ + + PELVIS 1 VIEW (04/18/1999 9:20 AM PDT) + + + + + + | Component | Value | Ref Range | Performed | Pathologist | | | | | At | Signature | + + + + + + | PELVIS 1 | Radiologist 1: ARMANDO, | | | | | VIEW | Malcom ALVAREZ-Radiologist | | | | | | 2: KIM ROBERTS | | | | | | MalcomPELVIS, AP: 04/18/99 | | | | | | at 0920 | | | | | | hours. Dictated | | | | | | on 05/09/99 FINDINGS: | | | | | | There is moderate axial | | | | | | and medial narrowing of | | | | | | the righthip with | | | | | | osteophytic ridge around | | | | | | the margin of the | | | | | | femoral head. Theleft | | | | | | hip, sacroiliac joints, | | | | | | symphysis pubis, are | | | | | | within | | | | | | normallimits. No | | | | | | fracture, dislocation, | | | | | | or destructive bone | | | | | | lesion is seen. RIGHT | | | | | | HIP, AP AND FROGLEG: | | | | | | FINDINGS: Again seen is | | | | | | moderate axial and | | | | | | medial narrowing of | | | | | | theright hip with | | | | | | osteophytic ridge around | | | | | | the femoral head. | | | | | | IMPRESSION: Medial | | | | | | osteoarthritis of the | | | | | | right hip. END OF | | | | | | IMPRESSION: END OF | | | | | | IMPRESSION: | | | | + + + + + + + + | Specimen | + + | | + + + +---------+ + + | Performing | Address | City/State/Zipcode | Phone Number | | Organization | | | | + +---------+ + + | [facility] | | | | | RADIOLOGY | | | | + +---------+ + + HIP, 2 VIEWS (04/18/1999 9:20 AM PDT) + + + + + + | Component | Value | Ref Range | Performed | Pathologist | | | | | At | Signature | + + + + + + | HIP, 2 | Radiologist 1: ARMANDO, | | | | | VIEWS | Malcom ALVAREZ-Radiologist | | | | | | 2: KIM ROBERTS | | | | | | MalcomPELVIS, AP: 04/18/99 | | | | | | at 0920 | | | | | | hours. Dictated | | | | | | on 05/09/99 FINDINGS: | | | | | | There is moderate axial | | | | | | and medial narrowing of | | | | | | the righthip with | | | | | | osteophytic ridge around | | | | | | the margin of the | | | | | | femoral head. Theleft | | | | | | hip, sacroiliac joints, | | | | | | symphysis pubis, are | | | | | | within | | | | | | normallimits. No | | | | | | fracture, dislocation, | | | | | | or destructive bone | | | | | | lesion is seen. RIGHT | | | | | | HIP, AP AND FROGLEG: | | | | | | FINDINGS: Again seen is | | | | | | moderate axial and | | | | | | medial narrowing of | | | | | | theright hip with | | | | | | osteophytic ridge around | | | | | | the femoral head. | | | | | | IMPRESSION: Medial | | | | | | osteoarthritis of the | | | | | | right hip. END OF | | | | | | IMPRESSION: END OF | | | | | | IMPRESSION: | | | | + + + + + + + + | Specimen | + + | | + + + +---------+ + + | Performing | Address | City/State/Zipcode | Phone Number | | Organization | | | | + +---------+ + + | [facility] | | | | | [facility] | | | | + +---------+ + + documented in this encounter Visit Diagnoses Not on filedocumented in this encounter"
--- OUTSIDE RECORDS SUMMARY | ~2019-02-26 | XMS | Encounter Summary ---
Demographics + + + | Address | [address] | | | [place] [address] | + + + | Home Phone | | + + + | Preferred Language | Unknown | + + + | Marital Status | Single | + + + | Jehovah'S Witness Affiliation | PRE | + + + | Race | White | + + + | Ethnic Group | Not or | + + + Author + + + | Author | [facility] | + + + | Organization | [facility] | + + + | Address | Unknown | + + + | Phone | Unavailable | + + + Support + + + + + | Name | Relationship | Address | Phone | + + + + + | Casandra Smith | ROBERTO | [place] | | + + + + + Care Team Providers + +------+ + | Care Framing Mill Operator Name | Role | Phone | + +------+ + | Travis Mcginnis MD | PCP | Unavailable | + +------+ + Encounter Details +--------+ + + + + | Date | Type | Department | Care Team | Description | +--------+ + + + + | 07/01/ | Abstract | Orthopaedics at | Note, Orthopedics | | | 2018 | | [facility] [address] | Clinic | | | | | [address] Mailcode: [id number] | | | | | | [facility] | | | | | | and | | | | | | [place], [place] | | | | | | [address] | | | | | | [phone] | | | +--------+ + + + [...] documented as of this encounter Progress Notes Gloria Mathur - 07/01/2018 9:38 AM PDT Orthopaedics New Patient Record Check List Procedure Comments Date requested Records/Imaging received? If so, what format? Where? What would you like to be seen for (body part and laterality)? L hip DOI, if applicable? n/a Prior Surgery? 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 2009. Dr Lloyd Harris [facility] R JUAN DAVID 2002 Have you seen anyone for this yet? [facility] in [place]. ED 06/24 [facility] in [facility]. Has had sepsis and MRSA and need to lose 35 lbs per this office. Eugenie [facility] [phone] 07/03 via phone MRI May 2018 CT [facility]'s impax X-Ray May 2018 XR [facility]' impax CT no Ultrasound no Other imaging Insurance to be billed per patient Medicaid Is this a W/C injury? no Are you a current smoker or tobacco user? Yes but cutting down. 3 cigarettes in past 2 months. Height & Weight, if unable to locate in notes or chart. Last recorded patient height: 05/10/11 1.626 m (5' 4") Wt on (05/10/2011) 118.8 kg (262 lb) Last 1 Encounter BMI Readings: Date BMI 05/10/2011 44.95 kg/m2 Patient reported height: Patient reported weight: Are you diabetic? no Lab Results Component Value Date A1C 6.0 (H) 10/17/2010 Patient reported A1C: Do you have a referring provider? no How far will you be traveling for this appointment? [place] Note: If patient traveling greater than 1 hour, consider coordinating any additi onal testing or appointments. Medical Review needed? yes Reminders: ? Ask patient if they d like to sign up for [employer] ? Don t forget to pull in CareEveryWhere Additional Comments: documented in this encounte r Plan of Treatment Not on filedocumented as of this encounter Visit Diagnoses Not on filedocumented in this encounter
--- OUTSIDE RECORDS SUMMARY | ~2019-02-26 | XMS | Encounter Summary ---
Demographics + + + | Address | [address] | | | [place] [address] | + + + | Home Phone | | + + + | Preferred Language | Unknown | + + + | Marital Status | Single | + + + | Restorationism Affiliation | PRE | + + + | Race | White | + + + | Ethnic Group | Not or | + + + Author + + + | Author | [facility] | + + + | Organization | [facility] | + + + | Address | Unknown | + + + | Phone | Unavailable | + + + Support + + + + + | Name | Relationship | Address | Phone | + + + + + | Casandra Smith | ROBERTO | [place] | | + + + + + Care Team Providers + +------+ + | Care Hog Scalder Name | Role | Phone | + +------+ + | Kalyan Sanders | PCP | Unavailable | + +------+ + Reason for Visit + + + | Reason | Comments | + + + | Radiographic imaging | | | procedure | | + + + Encounter Details +--------+ + + + + | Date | Type | Department | Care Team | Description | +--------+ + + + + | 09/05/ | Telephone | Orthopaedics at | Kalyan Arias MD | Radiographic imaging | | 2008 | | [facility] [address] | [address] [facility] | procedure | | | | [facility] | [facility] | | | | | Mailcode: PV430 | [place], [place] | | | | | Physician's Terrence | [address] | | | | | [place], [place] | [phone] | | | | | [address] | | | | | | [phone] | | | +--------+ + + + [...]
--- OUTSIDE RECORDS SUMMARY | ~2019-02-26 | XMS | Encounter Summary ---
Demographics + + + | Address | [address] | | | [place] [address] | + + + | Home Phone [...] Author + + + | Author | [facility] | + + + | Organization | [facility] | + + + | [...] Team Providers + +------+ + | Care Carpenter Supervisor Wooden Ship Name | Role | Phone | + +------+ + PCP | Unavailable | + +------+ + Encounter Details +--------+ + + + + | Date | Type | Department | Care Team | Description | +--------+ + + + + | 03/18/ | Office | [facility] | Note, [...] as of this encounter Progress Notes Interface, Peanut Cleaner In - 07/22/2006 3:18 AM PDTCLINIC DATE: 03/18/2001 ORTHOPEDIC CLINIC HISTORY: This nearly 41-year-old obese female follows for right hip degenerative joint disease and low back pain secondary to spondylosis. She returns to clinic for regularly scheduled 3-month followup, as she requires re-authorization of her physical therapy program every 3 months. She reports that she has been doing well. She has had some difficulty with sleeping in that her hip tends to keep her awake at night and occasionally awakens her from sleep due to twitching muscles. She checked it for sleep apnea, and they told her that she would need to resolve her hip problems before they could proceed to treatment. She feels that her hip pain is stabilizing and complains primarily of 2/10 right anterior knee pain. She takes Indocin 25 mg p.o. t.i.d. p.r.n., usually she only takes 2 doses per day. She walks with a cane in her left hand 80% of the time, both inside the house and outside of the house, and on good days which may be 60% of the time, she is able to get by without the cane at all. On occasions, on sour days and bad days, she always needs the cane because she is concerned about her hip and knee giving way. She states that she has bad days only about 15% of the time. On one such occasion, she actually fell. She is taking no other pain medication and finds that she has difficulty getting in and out of a car and traveling and pain in her groin especially when she attempts to lengthen her stride with walking. She also reports that she had a sore hip in the groin for 3 days after a somewhat vigorous range of motion testing in clinic. She does not feel that she is in need of a steroid injection into her hip at this time. PHYSICAL EXAMINATION: NEUROMUSCULAR: She ambulates with a moderate right gluteus medius length. She also has positive Trendelenburg sign. The gait improves with the cane in the left hand. Hip range of motion is not specifically measured today. She does have mild to moderate right greater than left patellofemoral crepitance. She has 5/5 quadriceps strength, and due to her obesity, I cannot discern any definitive quadriceps atrophy, although the vastus medialis obliques is definitively less palpable with resisted knee flexion and full extension on the right and the left. She has positive patellar grind test on the right with tenderness over the medial patellar facet greater than lateral. Knee is stable to varus valgus, Erika, anterior and posterior drawer stress tests with a range of motion from 0-120 degrees blocked primarily by soft tissue at the extremes of flexion. X-rays none today. 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 DISPOSITION: I have prescribed a Neoprene knee sleeve with patellar cutout, doughnut buildup, and Velcro straps for the right knee, I have advised her to avoid prolonged knee flexion and thought her quadriceps isometric and short-arc terminal extension vastus medialis obliques strengthening exercises. I have provided her with the requested physical therapy. PRESCRIPTION: To increase range of motion and strength and decrease pain in the hip and knee. I believe, they should add some specific modalities for her right anterior knee pain including patellar mobilization quadriceps sets in terminal extension emphasizing closed chain strengthening of the vastus medialis obliques and isometric quadriceps. She should continue with her exercise, pool, massage, and thermal modalities as well as the training if helpful. She should be seen 1 to 3 times per week for 12 weeks and to persist with the home exercise program. Return to clinic in 3 months' time with AP hip centered pelvis, AP and frog lateral of the right hip, standing AP flex knee lateral, Merchant, and notch views of the right knee. Lloyd Garcia M.D. acting professor, Orthopedics and Rehabilitation. BIRGIT / SALEEM [id number] / [id number] / [id number] / [id number] cc: JILLIAN TODD MD [address] [facility] [id number] signed by Interface, Peanut Cleaner In at 07/22/2006 3:1 8 AM PDTdocumented in this encounter Plan of Treatment Not on filedocumented as of this encounter Visit Diagnoses Not on filedocumented in this encounter"
--- OUTSIDE RECORDS SUMMARY | ~2019-02-26 | XMS | Encounter Summary ---
Demographics + + + | Address | [address] | | | [place] [address] | + + + | Home Phone [...] Author + + + | Author | [facility] | + + + | Organization | [facility] | + + + | Address | Unknown | + + + | Phone | Unavailable | + + + Support + + + + + | Name | Relationship | Address | Phone | + + + + + | Casandra Smith | ROBERTO | [place] | | + + + + + Care Team Providers + +------+ + | Care Shipping And Receiving Operator Name | Role | Phone | + +------+ + | No Pcp Per Patient | PCP | Unavailable | + +------+ + Reason for Visit + + + | Reason | Comments | + + + | Antibiotic Guidance | | + + + Encounter Details +--------+ + + + + | Date | Type | Department | Care Team | Description | +--------+ + + + + | 12/22/ | Telephone | Orthopaedics at | Kalyan Arias MD | Antibiotic Guidance | | 2008 | | [facility] [address] [facility] | [address] | | | | | [facility] | [facility] | | | | | Mailcode: [id number] | [place], [place] | | | | | Physician's Terrence | [address] | | | | | [place], [place] | [phone] | | | | | [address] | | | | | | [phone] | | | +--------+ + + + [...]
--- OUTSIDE RECORDS SUMMARY | ~2019-02-26 | XMS | Encounter Summary ---
Demographics + + + | Address | [address] | | | [place] [address] | + + + | Home Phone | | + + + | Preferred Language | Unknown | + + + | Marital Status | Single | + + + | Worship Affiliation | PRE | + + + [...] Team Providers + +------+ + | Care Federal Mediation Commissioner Name | Role | Phone | + +------+ + PCP | Unavailable | + +------+ + Encounter Details +--------+ + + + + | Date | Type | Department | Care Team | Description | +--------+ + + + + | // | Results | | Other, Faculty | | | 2003 | Only | | [phone] | | +--------+ + + + + [...] + | C-REACTIVE PROTEIN | Routin | 10/13/2003 | | Results for this | | | e | 10:45 AM | | procedure are in the | | | | PST | | results section. | + +--------+ + + + | CBC ONLY | Routin | 10/13/2003 | | Results for this | | | e | 10:45 AM | | procedure are in the | | | | PST | | results section. | + +--------+ + + + | SEDIMENTATION RATE | Routin | 10/13/2003 | | Results for this | | | e | 10:45 AM | | procedure are in the | | | | PST | | results section. | + +--------+ + + + | ELECTROLYTE SET (NA, | Routin | 10/06/2003 | | Results for this | | K, CL, CO2) | e | 6:45 AM | | procedure are in the | | | | PST | | results section. | + +--------+ + + + | CBC ONLY | Routin | 10/06/2003 | | Results for this | | | e | 6:45 AM | | procedure are in the | | | | PST | | results section. | + +--------+ + + + | SEDIMENTATION RATE | Routin | 10/06/2003 | | Results for this | | | e | 6:45 AM | | procedure are in the | | | | PST | | results section. | + +--------+ + + + | UREA NITROGEN, | Routin | 10/06/2003 | | Results for this | | PLASMA | e | 6:45 AM | | procedure are in the | | | | PST | | results section. | + +--------+ + + + | CREATININE, PLASMA | Routin | 10/06/2003 | | Results for this | | | e | 6:45 AM | | procedure are in the | | | | PST | | results section. | + +--------+ + + + | LIVER SET | Routin | 10/04/2003 | | Results for this | | (AST,ALT,BILI | e | 6:15 AM | | procedure are in the | | TOTAL,BILI | | PST | | results section. | | DIRECT,ALK | | | | | | PHOS,ALB,PROT TOTAL) | | | | | + +--------+ + + + | CBC ONLY | Routin | 10/04/2003 | | Results for this | | | e | 6:15 AM | | procedure are in the | | | | PST | | results section. | + +--------+ + + + | CREATININE, PLASMA | Routin | 10/04/2003 | | Results for this | | | e | 6:15 AM | | procedure are in the | | | | PST | | results section. | + +--------+ + + + | BASIC METABOLIC SET | Routin | 10/02/2003 | | Results for this | | (NA, K, CL, TCO2, | e | 6:30 AM | | procedure are in the | | BUN, CR, GLU, CA) | | PST | | results section. | + +--------+ + + + | CBC ONLY | Routin | 10/02/2003 | | Results for this | | | e | 6:30 AM | | procedure are in the | | | | PST | | results section. | + +--------+ + + + documented in this encounter Results CBC ONLY WITH PLATELET (10/13/2003 10:45 AM PST) + + + + + + | Component | Value | Ref Range | Performed | Pathologist | | | | | At | Signature | + + + + + + | WHITE CELL | 8.6 | 4.4 - 11.0 K/cu | [facility] | | | COUNT | | mm | DEPARTMENT | | | | | | OF | | | | | | PATHOLOGY | | + + + + + + | RED CELL | 3.19 (L) | 3.65 - 5.10 | [facility] | | | COUNT | | M/cu mm | DEPARTMENT | | | | | | OF | | | | | | PATHOLOGY | | + + + + + + | HEMOGLOBIN | 9.0 (L) | 11.4 - 15.0 | [facility] | | | | | g/dL | DEPARTMENT | | | | | | OF | | | | | | PATHOLOGY | | + + + + + + | HEMATOCRIT | 27.4 (L) | 33.0 - 44.6 % | [facility] | | | | | | DEPARTMENT | | | | | | OF | | | | | | PATHOLOGY | | + + + + + + | MCV | 85.7 | 80.0 - 96.0 fL | [facility] | | | | | | DEPARTMENT | | | | | | OF | | | | | | PATHOLOGY | | + + + + + + | MCH | 28.3 (L) | 29.0 - 32.0 pg | [facility] | | | | | | DEPARTMENT | | | | | | OF | | | | | | PATHOLOGY | | + + + + + + | MCHC | 33.0 (L) | 33.4 - 35.5 | [facility] | | | | | g/dL | DEPARTMENT | | | | | | OF | | | | | | PATHOLOGY | | + + + + + + | RDW | 15.8 (H) | 11.5 - 15.0 % | [facility] | | | | | | DEPARTMENT | | | | | | OF | | | | | | PATHOLOGY | | + + + + + + | PLATELET | 656 (H) | 150 - 400 K/cu | [facility] | | | COUNT | | mm | DEPARTMENT | | | | | | OF | | | | | | PATHOLOGY | | + + + + + + | MPV | 6.3 (L) | 7.4 - 10.4 fL | [facility] | | | | | | DEPARTMENT | | | | | | OF | | | | | | PATHOLOGY | | + + + + + + + + | Specimen | + + | | + + + + + | Narrative | Performed At | + + + | Ordered by PHYS NAME WRITTEN | [facility] | | | DEPARTMENT OF | | | PATHOLOGY | + + + + + + + + | Performing | Address | City/State/Zipcode | Phone Number | | Organization | | | | + + + + + | [facility] DEPARTMENT OF | [address] | [place] [address] | | | PATHOLOGY | [address] | | | + + + + + | [facility] DEPARTMENT OF | [address] | [place] [address] | | | PATHOLOGY | [address] | | | + + + + + SEDIMENTATION RATE (10/13/2003 10:45 AM PST) + +--------+ + + + | Component | Value | Ref Range | Performed | Pathologist | | | | | At | Signature | + +--------+ + + + | SEDIMENTATI | 86 (H) | <21 mm/hr | [facility] | | | ON RATE | | | DEPARTMENT | | | | | | OF | | | | | | PATHOLOGY | | + +--------+ + + + + + | Specimen | + + | | + + + + + | Narrative | Performed At | + + + | Ordered by PHYS NAME WRITTEN | [facility] | | | DEPARTMENT OF | | | PATHOLOGY | + + + + + + + + | Performing | Address | City/State/Zipcode | Phone Number | | Organization | | | | + + + + + | [facility] DEPARTMENT OF | [address] | [place] [address] | | | PATHOLOGY | [address] | | | + + + + + | [facility] | [address] | [place] [address] | | | PATHOLOGY | [address] | | | + + + + + C-REACTIVE PROTEIN (10/13/2003 10:45 AM PST) + +-------+ + + + | Component | Value | Ref Range | Performed | Pathologist | | | | | At | Signature | + +-------+ + + + | C-REACTIVE | 0.7 | <0.9 mg/dl | | | | PROTEIN | | | | | + +-------+ + + + + + | Specimen | + + | | + + + + + | Narrative | Performed At | + + + | Ordered by UNKNOWN DOCTOR | | + + + + + + + + | Performing | Address | City/State/Zipcode | Phone Number | | Organization | | | | + + + + + | [facility] | [address] | [place] [address] | | | LABORATORY | | | | + + + + + SEDIMENTATION RATE (10/06/2003 6:45 AM PST) + +---------+ + + + | Component | Value | Ref Range | Performed | Pathologist | | | | | At | Signature | + +---------+ + + + | SEDIMENTATI | Clotted | <21 mm/hr | [facility] | | | ON RATE | | | DEPARTMENT | | | | | | OF | | | | | | PATHOLOGY | | + +---------+ + + + + + | Specimen | + + | | + + + + + | Narrative | Performed At | + + + | Ordered by PHYS NAME WRITTEN | [facility] | | | DEPARTMENT OF | | | PATHOLOGY | + + + + + + + + | Performing | Address | City/State/Zipcode | Phone Number | | Organization | | | | + + + + + | [facility] DEPARTMENT OF | [address] | [place] [address] | | | PATHOLOGY | [address] | | | + + + + + | [facility] DEPARTMENT OF | [address] | [place] [address] | | | PATHOLOGY | [address] | | | + + + + + CBC ONLY WITH PLATELET (10/06/2003 6:45 AM PST) + +---------+ + + + | Component | Value | Ref Range | Performed | Pathologist | | | | | At | Signature | + +---------+ + + + | WHITE CELL | Clotted | 4.4 - 11.0 K/cu | [facility] | | | COUNT | | mm | DEPARTMENT | | | | | | OF | | | | | | PATHOLOGY | | + +---------+ + + + | RED CELL | Clotted | 3.65 - 5.10 | [facility] | | | COUNT | | M/cu mm | DEPARTMENT | | | | | | OF | | | | | | PATHOLOGY | | + +---------+ + + + | HEMOGLOBIN | Clotted | 11.4 - 15.0 | [facility] | | | | | g/dL | DEPARTMENT | | | | | | OF | | | | | | PATHOLOGY | | + +---------+ + + + | HEMATOCRIT | Clotted | 33.0 - 44.6 % | [facility] | | | | | | DEPARTMENT | | | | | | OF | | | | | | PATHOLOGY | | + +---------+ + + + | MCV | Clotted | 80.0 - 96.0 fL | [facility] | | | | | | DEPARTMENT | | | | | | OF | | | | | | PATHOLOGY | | + +---------+ + + + | MCH | Clotted | 29.0 - 32.0 pg | [facility] | | | | | | DEPARTMENT | | | | | | OF | | | | | | PATHOLOGY | | + +---------+ + + + | MCHC | Clotted | 33.4 - 35.5 | [facility] | | | | | g/dL | DEPARTMENT | | | | | | OF | | | | | | PATHOLOGY | | + +---------+ + + + | RDW | Clotted | 11.5 - 15.0 % | [facility] | | | | | | DEPARTMENT | | | | | | OF | | | | | | PATHOLOGY | | + +---------+ + + + | PLATELET | Clotted | 150 - 400 K/cu | [facility] | | | COUNT | | mm | DEPARTMENT | | | | | | OF | | | | | | PATHOLOGY | | + +---------+ + + + | MPV | Clotted | 7.4 - 10.4 fL | [facility] | | | | | | DEPARTMENT | | | | | | OF | | | | | | PATHOLOGY | | + +---------+ + + + + + | Specimen | + + | | + + + + + | Narrative | Performed At | + + + | Ordered by PHYS NAME WRITTEN | [facility] | | | DEPARTMENT OF | | | PATHOLOGY | + + + + + + + + | Performing | Address | City/State/Zipcode | Phone Number | | Organization | | | | + + + + + | [facility] DEPARTMENT OF | [address] | [place] [address] | | | PATHOLOGY | [address] | | | + + + + + | [facility] DEPARTMENT OF | [address] | [place] [address] | | | PATHOLOGY | [address] | | | + + + + + UREA NITROGEN, PLASMA (10/06/2003 6:45 AM PST) + +-------+ + + + | Component | Value | Ref Range | Performed | Pathologist | | | | | At | Signature | + +-------+ + + + | BUN, PLASMA | 5 (L) | 6 - 20 mg/dL | [facility] | | | (LAB) | | | DEPARTMENT | | | | | | OF | | | | | | PATHOLOGY | | + +-------+ + + + + + | Specimen | + + | | + + + + + | Narrative | Performed At | + + + | Ordered by PHYS NAME WRITTEN | [facility] | | | DEPARTMENT OF | | | PATHOLOGY | + + + + + + + + | Performing | Address | City/State/Zipcode | Phone Number | | Organization | | | | + + + + + | [facility] DEPARTMENT OF | [address] | [place] [address] | | | PATHOLOGY | [address] | | | + + + + + | [facility] DEPARTMENT OF | [address] | [place] [address] | | | PATHOLOGY | [address] | | | + + + + + CREATININE, PLASMA (10/06/2003 6:45 AM PST) + +-------+ + + + | Component | Value | Ref Range | Performed | Pathologist | | | | | At | Signature | + +-------+ + + + | CREATININE | 0.8 | 0.6 - 1.1 mg/dL | [facility] | | | PLASMA | | | DEPARTMENT | | | (LAB) | | | OF | | | | | | PATHOLOGY | | + +-------+ + + + + + | Specimen | + + | | + + + + + | Narrative | Performed At | + + + | Ordered by PHYS NAME WRITTEN | [facility] | | | DEPARTMENT OF | | | PATHOLOGY | + + + + + + + + | Performing | Address | City/State/Zipcode | Phone Number | | Organization | | | | + + + + + | [facility] DEPARTMENT OF | [address] | [place] [address] | | | PATHOLOGY | [address] | | | + + + + + | [facility] | [address] | [place] [address] | | | PATHOLOGY | [address] | | | + + + + + ELECTROLYTE SET (10/06/2003 6:45 AM PST) + +---------+ + + + | Component | Value | Ref Range | Performed | Pathologist | | | | | At | Signature | + +---------+ + + + | SODIUM, | 135 (L) | 136 - 145 | [facility] | | | PLASMA | | mmol/L | DEPARTMENT | | | (LAB) | | | OF | | | | | | PATHOLOGY | | + +---------+ + + + | POTASSIUM, | 3.7 | 3.5 - 5.1 | [facility] | | | PLASMA | | mmol/L | DEPARTMENT | | | (LAB) | | | OF | | | | | | PATHOLOGY | | + +---------+ + + + | CHLORIDE, | 100 | 98 - 107 mmol/L | [facility] | | | PLASMA | | | DEPARTMENT | | | (LAB) | | | OF | | | | | | PATHOLOGY | | + +---------+ + + + | TOTAL CO2, | 26 | 23 - 29 mmol/L | [facility] | | | PLASMA | | | DEPARTMENT | | | (LAB) | | | OF | | | | | | PATHOLOGY | | + +---------+ + + + + + | Specimen | + + | | + + + + + | Narrative | Performed At | + + + | Ordered by PHYS NAME WRITTEN | [facility] | | | DEPARTMENT OF | | | PATHOLOGY | + + + + + + + + | Performing | Address | City/State/Zipcode | Phone Number | | Organization | | | | + + + + + | [facility] DEPARTMENT OF | [address] | [place] [address] | | | PATHOLOGY | [address] | | | + + + + + | [facility] DEPARTMENT OF | [address] | [place] [address] | | | PATHOLOGY | [address] | | | + + + + + CBC ONLY WITH PLATELET (10/04/2003 6:15 AM PST) + + + + + + | Component | Value | Ref Range | Performed | Pathologist | | | | | At | Signature | + + + + + + | WHITE CELL | 8.7 | 4.4 - 11.0 K/cu | [facility] | | | COUNT | | mm | DEPARTMENT | | | | | | OF | | | | | | PATHOLOGY | | + + + + + + | RED CELL | 3.29 (L) | 3.65 - 5.10 | [facility] | | | COUNT | | M/cu mm | DEPARTMENT | | | | | | OF | | | | | | PATHOLOGY | | + + + + + + | HEMOGLOBIN | 9.4 (L) | 11.4 - 15.0 | [facility] | | | | | g/dL | DEPARTMENT | | | | | | OF | | | | | | PATHOLOGY | | + + + + + + | HEMATOCRIT | 28.2 (L) | 33.0 - 44.6 % | [facility] | | | | | | DEPARTMENT | | | | | | OF | | | | | | PATHOLOGY | | + + + + + + | MCV | 85.8 | 80.0 - 96.0 fL | [facility] | | | | | | DEPARTMENT | | | | | | OF | | | | | | PATHOLOGY | | + + + + + + | MCH | 28.6 (L) | 29.0 - 32.0 pg | [facility] | | | | | | DEPARTMENT | | | | | | OF | | | | | | PATHOLOGY | | + + + + + + | MCHC | 33.3 (L) | 33.4 - 35.5 | [facility] | | | | | g/dL | DEPARTMENT | | | | | | OF | | | | | | PATHOLOGY | | + + + + + + | RDW | 14.3 | 11.5 - 15.0 % | [facility] | | | | | | DEPARTMENT | | | | | | OF | | | | | | PATHOLOGY | | + + + + + + | PLATELET | 676 (H) | 150 - 400 K/cu | [facility] | | | COUNT | | mm | DEPARTMENT | | | | | | OF | | | | | | PATHOLOGY | | + + + + + + | MPV | 5.5 (L) | 7.4 - 10.4 fL | [facility] | | | | | | DEPARTMENT | | | | | | OF | | | | | | PATHOLOGY | | + + + + + + | CBC | Final platelet report. | | [facility] | | | COMMENTS | Slide review agrees with | | DEPARTMENT | | | | automated count. | | OF | | | | | | PATHOLOGY | | + + + + + + + + | Specimen | + + | | + + + + + | Narrative | Performed At | + + + | Ordered by PHYS NAME WRITTEN | [facility] | | | DEPARTMENT OF | | | PATHOLOGY | + + + + + + + + | Performing | Address | City/State/Zipcode | Phone Number | | Organization | | | | + + + + + | [facility] DEPARTMENT OF | [address] | [place] [address] | | | PATHOLOGY | [address] | | | + + + + + | [facility] DEPARTMENT OF | [address] | [place] [address] | | | PATHOLOGY | [address] | | | + + + + + CREATININE, PLASMA (10/04/2003 6:15 AM PST) + +-------+ + + + | Component | Value | Ref Range | Performed | Pathologist | | | | | At | Signature | + +-------+ + + + | CREATININE | 0.8 | 0.6 - 1.1 mg/dL | [facility] | | | PLASMA | | | DEPARTMENT | | | (LAB) | | | OF | | | | | | PATHOLOGY | | + +-------+ + + + + + | Specimen | + + | | + + + + + | Narrative | Performed At | + + + | Ordered by PHYS NAME WRITTEN | [facility] | | | DEPARTMENT OF | | | PATHOLOGY | + + + + + + + + | Performing | Address | City/State/Zipcode | Phone Number | | Organization | | | | + + + + + | [facility] DEPARTMENT OF | [facility] | [place] [address] | | | PATHOLOGY | [address] | | | + + + + + | [facility] DEPARTMENT OF | [address] [place] [address] | [place] [address] | | | PATHOLOGY | [address] | | | + + + + + LIVER SET (10/04/2003 6:15 AM PST) + +---------+ + + + | Component | Value | Ref Range | Performed | Pathologist | | | | | At | Signature | + +---------+ + + + | ALBUMIN, | 2.4 (L) | 3.5 - 4.7 g/dL | [facility] | | | PLASMA | | | DEPARTMENT | | | (LAB) | | | OF | | | | | | PATHOLOGY | | + +---------+ + + + | BILIRUBIN | 1.0 | 0.3 - 1.2 mg/dL | [facility] | | | TOTAL | | | DEPARTMENT | | | | | | OF | | | | | | PATHOLOGY | | + +---------+ + + + | BILIRUBIN | < 0.1 | <0.4 mg/dL | [facility] | | | DIRECT | | | DEPARTMENT | | | | | | OF | | | | | | PATHOLOGY | | + +---------+ + + + | ALK PHOS | 69 | 42 - 98 U/L | [facility] | | | | | | DEPARTMENT | | | | | | OF | | | | | | PATHOLOGY | | + +---------+ + + + | AST(SGOT) | 35 | 15 - 41 U/L | [facility] | | | | | | DEPARTMENT | | | | | | OF | | | | | | PATHOLOGY | | + +---------+ + + + | ALT (SGPT) | 33 | 13 - 48 U/L | [facility] | | | | | | DEPARTMENT | | | | | | OF | | | | | | PATHOLOGY | | + +---------+ + + + | TOTAL | 6.0 (L) | 6.1 - 7.9 g/dL | [facility] [...] | + + + | Ordered by PHYS NAME WRITTEN | [facility] | | | DEPARTMENT OF | | | PATHOLOGY | + + + + + + + + | Performing | Address | City/State/Zipcode | Phone Number | | Organization | | | | + + + + + | [facility] DEPARTMENT OF | [address] | [place] [address] | | | PATHOLOGY | [address] | | | + + + + + | [facility] DEPARTMENT OF | [address] | [place] [address] | | | PATHOLOGY | [address] | | | + + + + + CBC ONLY WITH PLATELET (10/02/2003 6:30 AM PST) + + + + + + | Component | Value | Ref Range | Performed | Pathologist | | | | | At | Signature | + + + + + + | WHITE CELL | 10.8 | 4.4 - 11.0 K/cu | [facility] | | | COUNT | | mm | DEPARTMENT | | | | | | OF | | | | | | PATHOLOGY | | + + + + + + | RED CELL | 2.34 (L) | 3.65 - 5.10 | [facility] | | | COUNT | | M/cu mm | DEPARTMENT | | | | | | OF | | | | | | PATHOLOGY | | + + + + + + | HEMOGLOBIN | 6.6 (L) | 11.4 - 15.0 | [facility] | | | | | g/dL | DEPARTMENT | | | | | | OF | | | | | | PATHOLOGY | | + + + + + + | HEMATOCRIT | 19.8 (*) | 33.0 - 44.6 % | [facility] | | | | | | DEPARTMENT | | | | | | OF | | | | | | PATHOLOGY | | + + + + + + | MCV | 84.2 | 80.0 - 96.0 fL | [facility] | | | | | | DEPARTMENT | | | | | | OF | | | | | | PATHOLOGY | | + + + + + + | MCH | 28.3 (L) | 29.0 - 32.0 pg | [facility] | | | | | | DEPARTMENT | | | | | | OF | | | | | | PATHOLOGY | | + + + + + + | MCHC | 33.6 | 33.4 - 35.5 | [facility] | | | | | g/dL | DEPARTMENT | | | | | | OF | | | | | | PATHOLOGY | | + + + + + + | RDW | 14.5 | 11.5 - 15.0 % | [facility] | | | | | | DEPARTMENT | | | | | | OF | | | | | | PATHOLOGY | | + + + + + + | PLATELET | 652 (H) | 150 - 400 K/cu | [facility] | | | COUNT | | mm | DEPARTMENT | | | | | | OF | | | | | | PATHOLOGY | | + + + + + + | MPV | 5.5 (L) | 7.4 - 10.4 fL | [facility] | | | | | | DEPARTMENT | | | | | | OF | | | | | | PATHOLOGY | | + + + + + + | CBC | Final hematocrit report, | | [facility] | | | COMMENTS | phoned. | | DEPARTMENT | | | | | | OF | | | | | | PATHOLOGY | | + + + + + + + + | Specimen | + + | | + + + + + | Narrative | Performed At | + + + | Ordered by PHYS NAME WRITTEN | [facility] | | | DEPARTMENT OF | | | PATHOLOGY | + + + + + + + + | Performing | Address | City/State/Zipcode | Phone Number | | Organization | | | | + + + + + | [facility] DEPARTMENT OF | [address] | [place] [address] | | | PATHOLOGY | [address] | | | + + + + + | [facility] DEPARTMENT OF | [address] | [place] [address] | | | PATHOLOGY | [address] | | | + + + + + BASIC METABOLIC SET (10/02/2003 6:30 AM PST) + +---------+ + + + | Component | Value | Ref Range | Performed | Pathologist | | | | | At | Signature | + +---------+ + + + | GLUCOSE, | 100 | 65 - 110 mg/dL | [facility] | | | PLASMA | | | DEPARTMENT | | | (LAB) | | | OF | | | | | | PATHOLOGY | | + +---------+ + + + | BUN, PLASMA | 3 (L) | 6 - 20 mg/dL | [facility] | | | (LAB) | | | DEPARTMENT | | | | | | OF | | | | | | PATHOLOGY | | + +---------+ + + + | CREATININE | 0.8 | 0.6 - 1.1 mg/dL | [facility] | | | PLASMA | | | DEPARTMENT | | | (LAB) | | | OF | | | | | | PATHOLOGY | | + +---------+ + + + | SODIUM, | 134 (L) | 136 - 145 | [facility] | | | PLASMA | | mmol/L | DEPARTMENT | | | (LAB) | | | OF | | | | | | PATHOLOGY | | + +---------+ + + + | POTASSIUM, | 3.4 (L) | 3.5 - 5.1 | [facility] | | | PLASMA | | mmol/L | DEPARTMENT | | | (LAB) | | | OF | | | | | | PATHOLOGY | | + +---------+ + + + | CHLORIDE, | 101 | 98 - 107 mmol/L | [facility] | | | PLASMA | | | DEPARTMENT | | | (LAB) | | | OF | | | | | | PATHOLOGY | | + +---------+ + + + | TOTAL CO2, | 29 | 23 - 29 mmol/L | [facility] | | | PLASMA | | | DEPARTMENT | | | (LAB) | | | OF | | | | | | PATHOLOGY | | + +---------+ + + + | CALCIUM, | 8.2 (L) | 8.5 - 10.5 | [facility] | | | PLASMA | | mg/dL | DEPARTMENT | | | (LAB) | | | OF | | | | | | PATHOLOGY | | + +---------+ + + + + + | Specimen | + + | | + + + + + | Narrative | Performed At | + + + | Ordered by PHYS NAME WRITTEN | [facility] | | | DEPARTMENT OF | | | PATHOLOGY | + + + + + + + + | Performing | Address | City/State/Zipcode | Phone Number | | Organization | | | | + + + + + | [facility] DEPARTMENT OF | [address] | [place] [address] | | | PATHOLOGY | [address] | | | + + + + + | [facility] | [address] | [place] [address] | | | PATHOLOGY | [address] | | | + + + + + documented in this encounter Visit Diagnoses Not on filedocumented in this encounter"
--- OUTSIDE RECORDS SUMMARY | ~2019-02-26 | XMS | Encounter Summary ---
Demographics + + + | Address | [address] | | | [place] [address] | + + + | Home Phone | | + + + | Preferred Language | Unknown | + + + | Marital Status | Single | + + + | Religion Affiliation | PRE | + + + | Race | White | + + + | Ethnic Group | Not or | + + + Author + + + | Author | [facility] | + + + | Organization | [facility] | + + + | [...] Providers + +------+ + | Care Health Underwriter Name | Role | Phone | + +------+ + | Marta Jenkins PLANNING INTERN | PCP | | + +------+ + Encounter Details +--------+ + + + + | Date | Type | Department | Care Team | Description | +--------+ + + + + | 12/30/ | Ancillary | Registration 3181 | Reji Whaley, | | | 2006 | Registratio | Akil Bergman | [address] | | | | n | [facility] Mailcode: | [address] | | | | | [id number] [place], [place] | [place], [place] | | | | | [address] | [address] | | | | | [phone] | [phone] | | | | | | | [...]
--- OUTSIDE RECORDS SUMMARY | ~2019-02-26 | XMS | Encounter Summary ---
Demographics + + + | Address | [address] | | | [place] [address] | + + + | Home Phone | | + + + | Preferred Language | Unknown | + + + | Marital Status | Single | + + + | Orthodox Affiliation | PRE | + + + | Race | White | + + + | Ethnic Group | Not or | + + + Author + + + | Author | [facility] | + + + | Organization | [facility] | + + + | Address [...] Team Providers + +------+ + | Care Bit Tripoler Name | Role | Phone | + +------+ + PCP | Unavailable | + +------+ + Encounter Details +--------+ + + + + | Date | Type | Department | Care Team | Description | +--------+ + + + + | 01/07/ | Results | Orthopaedics at | Lloyd Garcia MD | | | 2000 | Only | [facility] [address] | | | | | | [facility] | | | | | | Mailcode: [id number] | | | | | | Physician'yokasta Ocampo | | | | | | [place], [place] | | | | | | [address] | | | | | | [phone] | | | +--------+ + + + [...] | HIP, 2 VIEWS | Routin | 01/07/2001 | | Results for this | | | e | 8:35 AM | | procedure are in the | | | | PDT | | results section. | + +--------+ + + + documented in this encounter Results HIP, 2 VIEWS (01/07/2001 8:35 AM PDT) + + + + + + | Component | Value | Ref Range | Performed | Pathologist | | | | | At | Signature | + + + + + + | HIP, 2 | Radiologist 1: | | | | | VIEWS | [facility] | | | | | | HIP, TWO | | | | | | VIEWS: 01/07/2001 | | | | | | Dictated 01/07/2001 | | | | | | COMPARISON: | | | | | | 1. DISCUSSION: There | | | | | | is marked medial | | | | | | compartment narrowing of | | | | | | the righthip | | | | | | joint. There is near | | | | | | ctih-qjca-heas | | | | | | appearance medially | | | | | | andposteriorly. There | | | | | | is subchondral | | | | | | sclerosis and cystic | | | | | | change of thefemoral | | | | | | head. There is an | | | | | | osteophytic ridge of the | | | | | | | | | | | | inferioracetabulum. T | | | | | | here is an osteophytic | | | | | | collar of the femoral | | | | | | head.These changes are | | | | | | stable from | | | | | | 10/01/2000. No | | | | | | fractures areidentified. | | | | | | IMPRESSION: Advanced | | | | | | degenerative changes of | | | | | | the right hip unchanged | | | | | | from10/01/2000. END OF | | | | | | IMPRESSION: | | | | + + + + + + + + | Specimen | + + | | + + + +---------+ + + | Performing | Address | City/State/Zipcode | Phone Number | | Organization | | | | + +---------+ + + | [facility] DEPARTMENT OF | | | | | RADIOLOGY | | | | + +---------+ + + documented in this encounter Visit Diagnoses Not on filedocumented in this encounter"
--- OUTSIDE RECORDS SUMMARY | ~2019-02-26 | XMS | Encounter Summary ---
Demographics + + + | Address | [address] | | | [place] [address] | + + + | Home Phone | | + + + | Preferred Language | Unknown | + + + | Marital Status | Single | + + + | Sikh Affiliation | PRE | + + + | Race | White | + + + | Ethnic Group | Not or | + + + Author + + + | Author | [facility] | + + + | Organization | [facility] | + + + | Address [...] Team Providers + +------+ + | Care Tube Sizer And Cutter Operator Name | Role | Phone | + +------+ + | Yuki Pantoja MD | PCP | | + +------+ + Reason for Visit + + + | Reason | Comments | + + + | Return Patient | wound check | + + + Office Visit - E/M Services (Routine) +--------+--------+ + + + + | Status | Reason | Specialty | Diagnoses / | Referred By | Referred To | | | | | Procedures | Contact | Contact | +--------+--------+ + + + + | Closed | | Orthopedics | Diagnoses | Scarlett, | Hugo, | | | | | | Yuki, | Tyrone Barrientos MD | | | | | Osteoarthros | MD | [address] | | | | | is, | RICHARD | [facility] | | | | | unspecified | [facility] | [address] [place], | | | | | whether | [facility] | [place] | | | | | generalized | [address] | [address] | | | | | or | [place], | Phone: | | | | | localized, | [place] [address] | [phone] | | | | | pelvic | Phone: | Fax: | | | | | region and | [phone] | [phone] | | | | | thigh | Fax: | | | | | | | [phone] | | +--------+--------+ + + + + Encounter Details +--------+---------+ + + + | Date | Type | Department | Care Team | Description | +--------+---------+ + + + | 01/20/ | Office | Orthopaedics at | Tesfaye Saenz | Hip Pain; | | 2008 | Visit | [facility] [address] | MEGAN Evangelista | Hip Replacement | | | | [facility] | | | | | | Mailcode: [id number] | | | | | | [address] | | | | | | [place], [place] | | | | | | [address] | | | | | | [phone] | | | +--------+---------+ + + + [...] documented as of this encounter Progress Notes Tyrone Colby MD - 01/22/2009 8:52 PM PDTI have reviewed the patient's visit as charted by JORDY Germain. I saw and evaluated the patient and agree with the note. TYRONE COLBY MD [facility] ORTHOP[facility]ICS [facility] REHABILITATION [address] [place] [address] Mailcode: [id number] [place] [address] esfaye Saenz PA-Sea - 01/20/2009 5:38 PM PDT SUBJECTIVE Shelby Galdamez was today in clinic for a wound check. She states that the area around her incision spontaneously began draining a few days ago. She states it drained a bloody, seros anguinous fluid for one day only. She states that she is unsure of the exact location the f luid was draining from. She denies fever, chills, systemic symptoms. She is otherwise doin g well with the exception of some continued right sided low back and and right posterior thi gh pain which has not acutely worsened since last visit. She is frustrated as PCP is refusi ng to prescribe pain medication for her chronic pain. She has not completed PT as ordered b y myself and Dr Colby because she states the order must come from her PCP to be covered by [facility]. OBJECTIVE Examination shows no tenderness over the surgical incision. There is currently no drainage and no fluctuant areas underlying the incision. Incision is intact, clean and dry. No foc al area of erythema. ASSESSMENT/PLAN Ordered Sed Rate, CRP and CBC to r/o infectious process. Sed rate and CBC within normal limits. CRP pending. Offered to refer her to [facility] pain clinic if she would like opinion on chronic pain treatmen t. Will call PCP to find out if she is willing to order PT as recommended by Dr Colby at last v isit. Advised patient to call clinic immediately if any change in wound appearance (including inc reasing erythema or drainage) or fever, chills, systemic symptoms are experienced. She should follow up as previously scheduled. documented in this encounter Plan of Treatment Not on filedocumented as of this encounter Results CBC, WITH DIFFERENTIAL (01/20/2009 10:02 AM PDT) + + + + + [...] + + + | RED CELL | 4.53 | 4.00 - 5.20 | [facility] | | | COUNT | | M/cu mm | DEPARTMENT | | | | | | OF | | | | | | PATHOLOGY | | + + + + + + | HEMOGLOBIN | 12.8 | 12.0 - 16.0 | [facility] | | | | | g/dL | DEPARTMENT | | | | | | OF | | | | | | PATHOLOGY | | + + + + + + | HEMATOCRIT | 37.7 | 36.0 - 46.0 % | [facility] | | | | | | DEPARTMENT | | | | | | OF | | | | | | PATHOLOGY | | + + + + + + | MCV | 83.1 | 80.0 - 96.0 fL | [facility] | | | | | | DEPARTMENT | | | | | | OF | | | | | | PATHOLOGY | | + + + + + + | MCHC | 33.8 | 33.4 - 35.5 | [facility] | | | | | g/dL | DEPARTMENT | | | | | | OF | | | | | | PATHOLOGY | | + + + + + + | RDW | 15.1 (H) | 11.5 - 15.0 % | [facility] | | | | | | DEPARTMENT | | | | | | OF | | | | | | PATHOLOGY | | + + + + + + | PLATELET | 428 (H) | 150 - 400 K/cu | [facility] | | | COUNT | | mm | DEPARTMENT | | | | | | OF | | | | | | PATHOLOGY | | + + + + + + | CBC | Final automated | | [facility] | | | COMMENTS | differential report. | | DEPARTMENT | | | | Smear reviewed. | | OF | | | | | | PATHOLOGY | | + + + + + + + + | Specimen | + + | Blood - Blood | + + + + + | Narrative | Performed At | + + + | * Corrected 01/20/09 11:01: RAHUL COMMENTS, prev report: Slide | LION | | review pending. | DEPARTMENT OF | | | PATHOLOGY | + + + + + + + + | Performing | Address | City/State/Zipcode | Phone Number | | Organization | | | | + + + + + | [facility] DEPARTMENT OF | [address] | [place] [address] | | | PATHOLOGY | [address] | | | + + + + + | [facility] | [address] | [place] [address] | | | PATHOLOGY | [address] | | | + + + + + SEDIMENTATION RATE (01/20/2009 10:02 AM PDT) + +-------+ + + + | Component | Value | Ref Range | Performed | Pathologist | | | | | At | Signature | + +-------+ + + + | SEDIMENTATI | 16 | <21 mm/hr | [facility] | | [...] | + + + + + | [facility] | [address] [facility] | [place] [address] | | | PATHOLOGY | [address] | | | + + + + + | [facility] | [address] [place] [address] | [place] [address] | | | PATHOLOGY | [address] | | | + + + + + C-REACTIVE PROTEIN, SERUM (01/20/2009 10:02 AM PDT) + +-------+ + + + | Component | Value | Ref Range | Performed | Pathologist | | | | | At | Signature | + +-------+ + + + | C-REACTIVE | 0.5 | <0.6 mg/dl | | | | PROTEIN | | | | | + +-------+ + + + + + | Specimen | + + | Blood - Blood | + + + + + | Narrative | Performed At | + + + | Reference Range Change effective 10/26/08 | | | [facility]) | | | [facility] | | | [address] | | | [place] [address] | | + + + + + + + + | Performing | Address | City/State/Zipcode | Phone Number | | Organization | | | | + + + + + | [facility] | [address] | [place] [address] | | | LABORATORY | | | | + + + + + documented in this encounter Visit Diagnoses + + | Diagnosis | + + | Hip pain Pain in joint, pelvic region and thigh | + + | Hip replacement Hip joint replacement by other means | + + documented in this encounter"
--- OUTSIDE RECORDS SUMMARY | ~2019-02-26 | XMS | Encounter Summary ---
Demographics + + + | Address | [address] | | | [place] [address] | + + + | Home Phone | | + + + | Preferred Language | Unknown | + + + | Marital Status | Single | + + + | Sikh Affiliation | Unknown | + + + | Race | Unknown | + + + | Ethnic Group | Unknown | + + + Author + + + | Author | [facility] | + + + | Organization | [facility] | + + + | Address | Unknown | + + + | Phone | Unavailable | + + + Support + + +---------+ + | Name | Relationship | Address | Phone | + + +---------+ + | Kristel Teresa | ECON | Unknown | | + + +---------+ + Care Team Providers + +------+ + | Care Manager Cafe Name | Role | Phone | + [...] Description | +--------+--------+ + + + | 02/08/ | Refill | [facility] | Xiang Sepulveda, | | | 2018 | | [facility] | DO [address] | | | | | [address] | [place] | | | | | [place] | [address] | | | | | [address] | | | | | | [phone] | | | +--------+--------+ + + + [...] Description | +--------+---------+ + + + | 04/09/ | Office | Dolorology | Xiang Sepulveda, | | | 2019 | Visit | | DO [address] | | | | | | [place] | | | | | | [address] | | | | | | | | +--------+---------+ + + + as of this encounter Visit Diagnoses Not on filein this encounter"
--- OUTSIDE RECORDS SUMMARY | ~2019-02-26 | XMS | Encounter Summary ---
Demographics + + + | Address | [address] | | | [place] [address] | + + + | Home Phone [...] Author + + + | Author | [facility] | + + + | Organization | [facility] | + + + | Address [...] Team Providers + +------+ + | Care Emergency Department Clinician Name | Role | Phone | + +------+ + | Travis Mcginnis MD | PCP | Unavailable | + +------+ + Encounter Details +--------+ + + + + | Date | Type | Department | Care Team | Description | +--------+ + + + + | 07/01/ | Abstract | Orthopaedics at | Note, Orthopedics | | | 2018 | | [facility] [address] | Clinic | | | | | [address] Mailcode: CH12A | | | | | | [facility] | | | | | | and | | | | | | [place], [place] | | | | | | [address] | | | | | | [phone] | | | +--------+ + + + [...] bone in back. 2009. Dr Lloyd Harris [facility] R JUAN DAVID 2002 Have you seen anyone for this yet? [facility] in [place]. ED 06/24 [facility] in [facility]. Has had sepsis and MRSA and need to lose 35 lbs per this office. Eugenie GREENE [facility] [phone] 07/03 via phone MRI May 2018 CT [facility]'s impax X-Ray May 2018 XR [facility]' impax CT no Ultrasound no Other [...] will you be traveling for this appointment? [place] Note: If patient traveling greater than 1 hour, consider coordinating any additi onal testing or appointments. Medical Review needed? yes Reminders: ? Ask patient if they d like to sign up for [employer] ? Don t forget to pull in CareEveryWhere Additional Comments: documented in this encounte r Plan of Treatment Not on filedocumented as of this encounter Visit Diagnoses Not on filedocumented in this encounter
--- OUTSIDE RECORDS SUMMARY | ~2019-02-26 | XMS | Encounter Summary ---
Demographics + + + | Address | [address] | | | [place] [address] | + + + | Home Phone | | + + + | Preferred Language | Unknown | + + + | Marital Status | Single | + + + | Episcopal Affiliation | PRE | + + + [...] + | Casandra Smith | ROBERTO | [place] | | + + + + + Care Team Providers + +------+ + | Care Medical Dosimetrist Name | Role | Phone | + +------+ + PCP | Unavailable | + +------+ + Encounter Details +--------+ + + + + | Date | Type | Department | Care Team | Description | +--------+ + + + + | 09/13/ | Procedure - | | Documentation, | OP REPORT-TEACHING | | 2002 | | | Teaching Physician | | | | Transcribed | | [...] | + +--------+ + + + | TEACHING PHYSICIAN | | 09/13/2003 | | | + +--------+ + + + documented in this encounter Visit Diagnoses Not on filedocumented in this encounter"
--- OUTSIDE RECORDS SUMMARY | ~2019-02-26 | XMS | Encounter Summary ---
Demographics + + + | Address | [address] | | | [place] [address] | + + + | Home Phone [...] Author + + + | Author | [facility] | + + + | Organization | [facility] | + + + | Address [...] Team Providers + +------+ + | Care Appellate Conferee Name | Role | Phone | + +------+ + PCP | Unavailable | + +------+ + Encounter Details +--------+ + + + + | Date | Type | Department | Care Team | Description | +--------+ + + + + | 06/17/ | Office | [facility] | Note, [...] as of this encounter Progress Notes Interface, Workers Compensation Paralegal In - 07/10/2006 1:00 AM PDTCLINIC DATE: 06/17/2001 ORTHOPEDIC CLINIC HISTORY: A 41-year-old obese female followed for right hip degenerative joint disease as well as low back pain secondary to spondylosis and right knee DJD. She returns to clinic today approximately 4 weeks (May 27, 2001) status post right hip arthrogram with a therapeutic injection of bupivacaine and Depo-Medrol. She reports that this is the best her hip has felt in a long long time. She had 2 to 3 days of increased pain after her injection and attributes this to the radiologist Dr. West who made an effort to inject as much medicine as possible. She uses her cane on an as needed basis in her left hand and takes very occasional amount of Flexeril and Neurontin, and Indocin as needed. She is proud to demonstrate that she can flex, abduct, and externally rotate her hip well standing on the contralateral limb with minimal pain. PHYSICAL EXAMINATION: GENERAL: A pleasant and obese female in no acute distress. EXTREMITIES: She ambulates with a right coccyalgic gait which is slight in severity. Hip range of motion is 0 to 120 degrees flexion, 30 degrees internal and external rotation, 45 degrees abduction, and 30 degrees of adduction with discomfort with the extremes of external rotation and abduction. Left hip, she has 0 to 130 degrees flexion, 60 degrees of external rotation, 30 degrees of internal rotation, 75 degrees of abduction, and 30 degrees of adduction. DIAGNOSTIC DATA: I have reviewed the arthrogram which shows a large colony of osteophytes from the femoral head with preferentially decreased femoral head cartilage to approximately 1 mm. I see no areas of absolute loss of femoral head cartilage. The acetabular cartilage is asymmetrically narrowed, ranging from 1 to 3 mm. The joint volume is markedly constricted indicating some amount of adhesive capsulitis. ASSESSMENT: Symptomatic improvement in severe right hip degenerative joint disease after injection arthrogram. stable low back pain secondary to spondylosis, and right knee degenerative joint disease. DISPOSITION: She will continue with her activities. Unfortunately, her physical therapy and exercise have been re-authorized by her insurance. She will return to clinic in 3 months' time. She will not require x-rays at that point. We will continue symptomatic treatment as long as this is effective and when this fails, she will require right total hip replacement. Lloyd Garcia M.D. Wind Turbine Performance Engineer Orthopedic and Rehabilitation / [id number] / [id number] / [id number] / cc: JILLIAN TODD MD [address] [id number] signed by Interface, Workers Compensation Paralegal In at 07/10/2006 1:0 0 AM PDTdocumented in this encounter Plan of Treatment Not on filedocumented as of this encounter Visit Diagnoses Not on filedocumented in this encounter"
--- OUTSIDE RECORDS SUMMARY | ~2019-02-26 | XMS | Encounter Summary ---
Demographics + + + | Address | [address] | | | [place] [address] | + + + | Home Phone [...] Author + + + | Author | [facility] | + + + | Organization | [facility] | + + + | Address [...] Providers + +------+ + | Care Advertising Clerk Name | Role | Phone | [...] | Closed | | | | | [facility] | | | | | | | Orthopaedics | | | | | | | [address] | | | | | | | [address] | | | | | | | [address] | | | | | | | PHYLLISTNOMAH | | | | | | | [place] | | | | | | | (MNP/OLD [facility]) | | | | | | | [place], | | | | | | | [place] [address] | +--------+--------+ + + + + Encounter Details +--------+---------+ + + + | Date | Type | Department | Care Team | Description | +--------+---------+ + + + | 09/08/ | Office | Radiation Oncology | Kevin Arenas MD | Heterotopic Tissue | | 2007 | Visit | at [facility] [address] | [address] | (Primary Dx) | | | | [address] | [place], [place] | | | | | [place] | [address] | | | | | [place], | [phone] | | | | | [place] [address] | | | | | | [phone] | | | +--------+---------+ + + + [...] will treatment her today. KEVIN ARENAS MD [facility] RADIATION MEDICINE [address] [place] [address] r Miller - 09/08/2008 2:21 PM PST [...] 10 mg, 10 mg, Rectal, DAILY NEEDED, MUKESHGELALEKS cyclobenzaprine (aka FLEXERIL) tablet 10 mg, 10 mg, Oral, TWICE DAILY, ALEKS CHISHOLM dextrose 5%-NaCl 0.45%-KCl 20 mEq/L IV infusion, 100 mL/hr, Intravenous, CONTINUOUS, ALEKS CHISHOLM hydrochlorothiazide (aka HYDRODIURIL) capsule 12.5 mg, 12.5 mg, Oral, DAILY, MUKESHGELALEKS HYDROmorphone (aka DILAUDID) injection 1 mg, 1 mg, Intravenous, EVERY 2 HOURS NEEDED, ALEKS ANDREW lisinopril (aka PRINIVIL) tablet 20 mg, 20 mg, Oral, DAILY, KEGEL, ALEKS lovastatin (aka MEVACOR) tablet 10 mg, 10 mg, Oral, EVERY EVENING, KEGEL, ALEKS magnesium hydroxide (aka MILK OF MAGNESIA) suspension 30 mL, 30 mL, Oral, EVERY 8 HOURS NEEDED, MUKESHGEL, ALEKS metoclopramide (aka REGLAN) injection 10-30 mg, 10-30 mg, Intravenous, EVERY 4 HOURS NEE DED, ALEKS CHISHOLM NaCl 0.9 % 1,000 mL IV, , Intravenous, CONTINUOUS, RICHELLE EWING naloxone (aka NARCAN) injection, , Intravenous, NEEDED, ALEKS CHISHOLM naloxone (aka NARCAN) injection, , Intravenous, NEEDED, MUKESHGELALEKS oxycodone immediate release (aka ROXICODONE) tablet 5-15 mg, 5-15 mg, Oral, EVERY 4 HOURS A S NEEDED, MUKESHGEL, ALEKS ranitidine (aka ZANTAC) tablet 150 mg, 150 mg, Oral, TWICE DAILY, ALEKS CHISHOLM senna-docusate (aka SENOKOT S) 8.6-50 mg 2 [...] DAVID, 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
--- OUTSIDE RECORDS SUMMARY | ~2019-02-26 | XMS | Encounter Summary ---
Demographics + + + | Address | [address] | | | [place] [address] | + + + | Home Phone | | + + + | Preferred Language | Unknown | + + + | Marital Status | Single | + + + | Denominational Affiliation | PRE | + + + [...] Team Providers + +------+ + | Care Psychology Technician Name | Role | Phone | [...] | 2010 | | Diseases at [facility] [address] | [address] | | | | | Floor [address] | [facility] | | | | | [facility] | [place] [address] | | | | | Mailcode: L457 | [phone] | | | | | Physicians [place] | | | | | | [place], [place] | | | | | | [address] | | | | | | [phone] | | | +--------+ + + + [...] CELL | 7.8 | K/cu mm | [facility] | | | COUNT | | | MEDICAL | | | | | | C[facility] - | | | | | | [place] | | + +-------+ + + + | RED CELL | 4.86 | M/cu mm | [facility] | | | COUNT | | | MEDICAL | | | | | | C[facility] - | | | | | | [place] | | + +-------+ + + + | HEMOGLOBIN | 14.1 | 121999 - 15 | [facility] | | | | | g/dL | MEDICAL | | | | | | CENTER - | | | | | | [place] | | + +-------+ + + + | HEMATOCRIT | 41.2 | % | [facility] | | | | | | MEDICAL | | | | | | [facility] - | | | | | | [place] | | + +-------+ + + + | MCV | 85 | fL | [facility] | | | | | | MEDICAL | | | | | | [facility]ENTER - | | | | | | [place] | | + +-------+ + + + | MCH | 29 | pg | [facility] | | | | | | MEDICAL | | | | | | [facility]ENTER - | | | | | | [place] | | + +-------+ + + + | MCHC | 34.2 | g/dL | [facility] | | | | | | MEDICAL | | | | | | [facility] - | | | | | | [place] | | + +-------+ + + + | PLATELET | 367 | K/cu mm | [facility] | | | COUNT | | | MEDICAL | | | | | | CENTER - | | | | | | [place] | | + +-------+ + + + | NEUTROPHIL | 59.2 | % | [facility] | | | % | | | MEDICAL | | | | | | [facility]ENTER - | | | | | | [place] | | + +-------+ + + + | LYMPHOCYTE | 32.5 | % | [facility] | | | % | | | MEDICAL | | | | | | CENTER - | | | | | | [place] | | + +-------+ + + + | MONOCYTE % | 6.1 | % | [facility] | | | | | | MEDICAL | | | | | | CENTER - | | | | | | [place] | | + +-------+ + + + | EOS % | 1.5 | % | [facility] | | | | | | MEDICAL | | | | | | CENTER - | | | | | | [place] | | + +-------+ + + + | BASO % | 0.7 | % | [facility] | | | | | | MEDICAL | | | | | | CENTER - | | | | | | [place] | | + +-------+ + + + | RDW | 14.5 | % | [facility] | | | | | | MEDICAL | | | | | | [facility]ENTER - | | | | | | [place] | | + +-------+ + + + | MPV | | fL | [facility] | | | | | | MEDICAL | | | | | | [facility] - | | | | | | [place] | | + +-------+ + + + | NEUTROPHIL | 4.6 | K/cu mm | [facility] | | | # | | | MEDICAL | | | | | | [facility]ENTER - | | | | | | [place] | | + +-------+ + + + | LYMPHOCYTE | 2.5 | K/cu mm | [facility] | | | # | | | MEDICAL | | | | | | [facility]ENTER - | | | | | | [place] | | + +-------+ + + + | MONOCYTE # | 0.5 | K/cu mm | [facility] | | | | | | MEDICAL | | | | | | [facility] - | | | | | | [place] | | + +-------+ + + + | EOS # | 0.1 | K/cu mm | [facility] | | | | | | MEDICAL | | | | | | [facility] - | | | | | | [place] | | + +-------+ + + + | BASO # | 0.1 | | [facility] | | | | | | MEDICAL | | | | | | CENTER - | | | | | | [place] | | + +-------+ + + + | PHOSPHORUS, | 3.9 | mg/dL | [facility] | | | PLASMA | | | [...] | + + + + + | [facility] | [address] | [place] [address] | | | [facility] | | | | + + + + + COMPLETE METABOLIC SET (NA,K,CL,CO2,BUN,CREAT,GLUC,CA,AST,ALT,BILI TOTAL,ALK PHOS,ALB,PROT TOTAL) (03/01/2011 9:55 AM PDT) + +-------+ + + + | Component | Value | Ref Range | Performed | Pathologist | | | | | At | Signature | + +-------+ + + + | GLUCOSE, | 106 | 65 - 110 mg/dL | [facility] | | | PLASMA | | | MEDICAL | | | (LAB) | | | CENTER - | | | | | | [place] | | + +-------+ + + + | BUN, PLASMA | 10 | mg/dL | [facility] | | | (LAB) | | | MEDICAL | | | | | | CENTER - | | | | | | [place] | | + +-------+ + + + | CREATININE | 0.7 | mg/dL | [facility] | | | PLASMA | | | MEDICAL | | | (LAB) | | | CENTER - | | | | | | [place] | | + +-------+ + + + | TOTAL | 7.4 | g/dL | [facility] | | | PROTEIN, | | | MEDICAL | | | PLASMA | | | CENTER - | | | (LAB) | | | [place] | | + +-------+ + + + | ALBUMIN, | 3.8 | g/dL | [facility] | | | PLASMA | | | MEDICAL | | | (LAB) | | | CENTER - | | | | | | [place] | | + +-------+ + + + | CALCIUM, | 9.2 | mg/dL | [facility] | | | PLASMA | | | MEDICAL | | | (LAB) | | | CENTER - | | | | | | [place] | | + +-------+ + + + | BILIRUBIN | 0.3 | Transcutaneous | [facility] | | | TOTAL | | Bilirubinometer | MEDICAL | | | | | | CENTER - | | | | | | [place] | | + +-------+ + + + | ALK PHOS | 72 | U/L | [facility] | | | | | | MEDICAL | | | | | | CENTER - | | | | | | [place] | | + +-------+ + + + | AST(SGOT) | 10 | U/L | [facility] | | | | | | MEDICAL | | | | | | CENTER - | | | | | | [place] | | + +-------+ + + + | SODIUM, | 141 | mmol/L | [facility] | | | PLASMA | | | MEDICAL | | | (LAB) | | | CENTER - | | | | | | [place] | | + +-------+ + + + | POTASSIUM, | 4.4 | mmol/L | [facility] | | | PLASMA | | | MEDICAL | | | (LAB) | | | CENTER - | | | | | | [place] | | + +-------+ + + + | CHLORIDE, | 107 | mmol/L | [facility] | | | PLASMA | | | MEDICAL | | | (LAB) | | | CENTER - | | | | | | [place] | | + +-------+ + + + | TOTAL CO2, | 30 | mmol/L | [facility] | | | PLASMA | | | MEDICAL | | | (LAB) | | | CENTER - | | | | | | [place] | | + +-------+ + + + | ALT (SGPT) | 14 | U/L | [facility] | | | | | | MEDICAL | | | | | | CENTER - | | | | | | [place] | | + +-------+ + + + | SEDIMENTATI | 29 | mm/hr | [facility] | | | ON RATE | | [...] | + + + + + | [facility] | [address] | [place] [address] | | | [facility] - [place] | | | | + + + + + documented in this encounter Visit Diagnoses Not on filedocumented in this encounter"
--- OUTSIDE RECORDS SUMMARY | ~2019-02-26 | XMS | Encounter Summary ---
Demographics + + + | Address | [address] | | | [place] [address] | + + + | Home Phone [...] + + + | Author | [facility] | + + + | Organization | [facility] | + + + | Address [...] Team Providers + +------+ + | Care Retread Mold Operator Name | Role | Phone | + +------+ + PCP | Unavailable | + +------+ + Encounter Details +--------+ + + + + | Date | Type | Department | Care Team | Description | +--------+ + + + + | 03/14/ | Results | Orthopaedics at | Lloyd Garcia MD | | | 1999 | Only | [facility] [address] | | | | | | [facility] | | | | | | Mailcode: [id number] | | | | | | Physician'yokatsa Ocampo | | | | | | [place], [place] | | | | | | [address] | | | | | | [phone] | | | +--------+ + + + [...] | | | | deformity noted at | | | | | | T11. Thedegree of | | | | | | anterior wedging does | | | | | | not appear significantly | | | | | | changed fromthe | | | | | | previous study of | | | | | | September 1999 without | | | | | | further | | | | | | collapse. There | | | | | | isconcavity of the | | | | | | superior end plates of | | | | | | T12 and L1, which | | | | | | appearunchanged as | | | | | | well. No new | | | | | | compression deformities | | | | | | are identified.There is | | | | | | very mild degenerative | | | | | | changes noted of the | | | | | | lower lumbarspine with | | | | | | small anterior spur | | | | | | formation noted at | | | | | | L3-4. There isminimal | | | | | | disc space narrowing at | | | | | | L4-5. There is no | | | | | | evidence | | | | | | forspondylolysis or | | | | | | spondylolisthesis. | | | | | | IMPRESSION: | | | | | | 1. Unchanged | | | | | | appearance of the | | | | | | anterior wedge deformity | | | | | | at T11 andend plate | | | | | | concavity at T12 and L1 | | | | | | from the previous study | | | | | | of 10/30/99. 2. Mild | | | | | | degenerative changes of | | | | | | the lower lumbar spine. | | | | | | END [...] | | | | | | a marked medial | | | | | | narrowing of the right | | | | | | hip jointspace. There | | | | | | is an osteophytic | | | | | | collar noted of the | | | | | | right | | | | | | femoralhead. Subchond | | | | | | ral cystic change is | | | | | | noted within the femoral | | | | | | head aswell. This | | | | | | does not appear | | | | | | significantly changed | | | | | | from the prior studyof | | | | | | 03/14/00. No | | | | | | fractures are | | | | | | identified. The pubic | | | | | | symphysis ismaintained | | | | | | as well as the left | | | | | | hip. Visualized | | | | | | portion of thesacroiliac | | | | | | joints appear | | | | | | maintained. IMPRESSION: | | | | | | Advanced medial | | | | | | osteoarthritis of the | | | | | | right hip, unchanged | | | | | | appearancefrom the | | | | | | previous study of | | | | [...] | | + +---------+ + + | [facility] DEPARTMENT OF | | [...] SALT | | | | | | [place], LATERAL | | | | | | AND | | | | | | MARSH[place]. 06/06/ | | | | | | 00 | | | | | | Dictated: 09/08/00 | | | | | | DISCUSSION: The joint | | | | | | spaces appear | | | | | | maintained. No | | | | | | fractures orsubluxations | | | | | | are seen. No | | | | | | significant degenerative | | | | | | changes | | | | | | areidentified. No | | | | | | erosive changes are | | | | [...] | | + +---------+ + + | [facility] DEPARTMENT OF | | [...] | | | | | | a marked medial | | | | | | narrowing of the right | | | | | | hip jointspace. There | | | | | | is an osteophytic | | | | | | collar noted of the | | | | | | right | | | | | | femoralhead. Subchond | | | | | | ral cystic change is | | | | | | noted within the femoral | | | | | | head aswell. This | | | | | | does not appear | | | | | | significantly changed | | | | | | from the prior studyof | | | | | | 03/14/00. No | | | | | | fractures are | | | | | | identified. The pubic | | | | | | symphysis ismaintained | | | | | | as well as the left | | | | | | hip. Visualized | | | | | | portion of thesacroiliac | | | | | | joints appear | | | | | | maintained. IMPRESSION: | | | | | | Advanced medial | | | | | | osteoarthritis of the | | | | | | right hip, unchanged | | | | | | appearancefrom the | | | | | | previous study of | | | | [...] | | | | | | SHELBY | | | | | | C | | | | | | | | | | | | -2 | | | | | | 699 THE FINDINGS AND | | | | | | INTERPRETATIONS HAVE | | | | | | BEEN REPORTED ON | | | | | | THEGPEL1, ACC# [id number], | | | | | | DONE ON 14-MAR-2000 AT | | | | | | 8:00. | | | | + + + + + + + + | Specimen | + + | | + + + +---------+ + + | Performing | Address | City/State/Zipcode | Phone Number | | Organization | | | | + +---------+ + + | [facility] DEPARTMENT | | | | | RADIOLOGY | | | | + +---------+ + + documented in this encounter Visit Diagnoses Not on filedocumented in this encounter"
--- OUTSIDE RECORDS SUMMARY | ~2019-02-26 | XMS | Encounter Summary ---
Demographics + + + | Address | [address] | | | [place] [address] | + + + | Home Phone [...] Author + + + | Author | [facility] | + + + | Organization | [facility] | + + + | Address [...] Team Providers + +------+ + | Care Fishing Floats Assembler Name | Role | Phone | + +------+ + PCP | Unavailable | + +------+ + Encounter Details +--------+ + + + + | Date | Type | Department | Care Team | Description | +--------+ + + + + | 11/07/ | Office | [facility] | Note, Orthopedics | Progress Note | | 2006 | Visit-Trans | | Clinic | | [...] as of this encounter Progress Notes Interface, Hop Worker In - 11/23/2005 2:04 AM PST [id number] [facility] Date: 11/07/2005 Clinic: Orthopaedics Shelby Galdamez is a 46-year-old woman seen for evaluation of pain in the right hip and back. She provides a history that she was operated on in [address] Garcia at [facility] for osteoarthritis. She apparently had a cheilectomy of the hip joint and associated with the removal of the greater trochanter. I understand that the greater trochanter was pulled away and had to be put back down, and she had an infection in the hip. She subsequently wore a brace, but she indicates that she has not worn it since 2003. She tells me that her insurance would not allow her to go back to see Dr. Garcia. She also has back pain, and her back pain she indicates begins in her outer buttock on the right side radiating down the leg to some extent. She also has rather significant obesity weighing 273 pounds. At the present time, she is taking 7.5 mg hydrocodone 5 to 6 a day and is on a pain contract with her doctor. She takes an inhaler, a cholesterol medication, medication for heartburn, and medication for sleep. Allergies: She has no allergies. Past Surgical History: Her prior surgeries include her hip surgery as well as gallbladder surgery, hysterectomy, had tonsil and adenoids, 2 sections, and an operation on her right finger. She has an overactive gag reflex and asthma. Review of Systems: Her review of systems indicates that she occasionally has shortness of breath when she walks but has no other cardiac symptoms. She has acid reflux in her stomach. She drinks very occasionally, and she smokes half a pack of cigarettes a day. She describes her pain in the hip area as being on the inner groin and sometimes sharp, sometimes throbbing, sometimes itching, and sometimes electric like in nature. Impression: My impression of her pain is that she clearly has pain coming from her hip joint. It is primarily on the inner groin, and it seems to be associated with movement and is improved by rest. The range of motion of her hip is within normal limits, although adduction causes pain, rotation causes pain, and abduction does not cause pain. She is very tender in the midline, low back, and she is able to get on and off the table by herself. She is able to put her weight on her leg and stand on her tiptoe and on her heel. She has normal peripheral vascular findings, and normal peripheral neurological findings. She has a slightly positive nerve stretch test on the right side, but is not very dramatic. She brings with her MRIs of her lumbar spine which I briefly reviewed and which did not seem to indicate any evidence of a herniated disk. She also brings MRI of her hips which I am having scanned into the system here. I arranged to get a x-ray of her pelvis which shows that on the right side there is some heterotopic bone around the trochanter. The trochanteric portion of the trochanter has been elevated, and she has some evidence of narrowing of the joint space, although in itself is not too bad. She walks with a gluteus medius limp and has a brace that she says used to help her, but she has not worn it for some time. One further issue is that in October 2004, she had a scratch from a cat that became infected. This infection continued for quite some time, and she states that later about April 2005, the area around her hip where she had previous infection began to drain again. This is now cleared up and presumably is okay. She lives alone. She has some help from the home health provider. 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 Diagnoses: 1. Morbid obesity. 2. Symptomatic right hip with associated elevated greater trochanter, gluteus medius limp, and pain. 3. Degenerative low back disease associated with some radiation of pain into the buttock region without evidence of any nerve dysfunction. I have told her that we should check some lab work to make sure there is nothing to suggest she has any ongoing sepsis, although I doubt it to be resolved. She was given a request to take home to [place] to see if she can get into a pool to do an exercise program enough to control her weight. I think she is symptomatic to the point that one might consider doing a hip replacement; however, I am not sure of the timing or appropriateness. I have told her that I think she should have an aspiration of her hip joint prior to consideration of that if it seems appropriate to do. I told her I would talk to Dr. Garcia about her, and perhaps we could formulate some plans. Her phone is #[phone]. Gino Baker M.D. KEE / SALEEM [id number] / [id number] / [id number] / [id number] cc: Quintin Acevedo [facility] [address] [place] [address] Electronically signed by Gino Baker 11-22-2005 02:58:59 PM documented i n this encounter Plan of Treatment Not on filedocumented as of this encounter Visit Diagnoses Not on filedocumented in this encounter"
--- OUTSIDE RECORDS SUMMARY | ~2019-02-26 | XMS | Encounter Summary ---
Demographics + + + | Address | [address] | | | [place] [address] | + + + | Home Phone [...] Team Providers + +------+ + | Care Budget Director Name | Role | Phone | [...] as of this encounter Progress Notes Interface, Health Insurance Agent In - 04/28/2005 10:57 PM PDTClinic Date: [...] not need a refill. Lloyd Garcia M.D. [employer] [facility] / [id number] / [id number] / [id number] / [phone] cc: Leonel Floyd M.D. [address] [place], [place] [address]Lssurtnymicpsw signed by Interface, Health Insurance Agent In at 04/28/2005 10:57 PM PDTdocumented in this encounter Plan of Treatment Not on filedocumented as of this encounter Visit Diagnoses Not on filedocumented in this encounter"
--- OUTSIDE RECORDS SUMMARY | ~2019-02-26 | XMS | Encounter Summary ---
Demographics + + + | Address | [address] | | | [place] [address] | + + + | Home Phone | | + + + | Preferred Language | Unknown | + + + | Marital Status | Single | + + + | Cheondoism Affiliation | PRE | + + + | Race | White | + + + | Ethnic Group | Not or | + + + Author + + + | Author | [facility] | + + + | Organization | [facility] | + + + | Address [...] Team Providers + +------+ + | Care Passementerie Worker Name | Role | Phone | [...] + + + + | 11/13/ | Music Therapy Specialist | Infectious | [facility] | | | 2010 | | Diseases at [facility] | MEGAN [address] | | | | | Floor [address] | [facility] | | | | | [facility] | [place] [address] | | | | | Mailcode: L457 | [phone] | | | | | Ky Ocampo | | | | | | [place], [place] | | | | | | [address] | | | | | | [phone] | | | +--------+ + + + [...]
--- OUTSIDE RECORDS SUMMARY | ~2019-02-26 | XMS | Encounter Summary ---
Demographics + + + | Address | [address] | | | [place] [address] | + + + | Home Phone | | + + + | Preferred Language | Unknown | + + + | Marital Status | Single | + + + | Yazidism Affiliation | PRE | + + + [...] Team Providers + +------+ + | Care Telecommunications Consultant Name | Role | Phone | + +------+ + PCP | Unavailable | + +------+ + Encounter Details +--------+ + + + + | Date | Type | Department | Care Team | Description | +--------+ + + + + | 10/05/ | Procedure - | | Documentation, | OP REPORT-TEACHING | | 2004 | | | Teaching Physician | | [...] + + | TEACHING PHYSICIAN | | 10/05/2003 | | | + +--------+ + + + documented in this encounter Visit Diagnoses Not on filedocumented in this encounter"
--- OUTSIDE RECORDS SUMMARY | ~2019-02-26 | XMS | Encounter Summary ---
Demographics + + + | Address | [address] | | | [place] [address] | + + + | Home Phone [...] Author + + + | Author | [facility] | + + + | Organization | [facility] | + + + | Address [...] Team Providers + +------+ + | Care Salon Manager Name | Role | Phone | [...] [address] | | | | | | [facility] | | | | | | Mailcode: PV430 | | | | | | Physician'yokasta Ocampo | | | | | | [place], [place] | | | | | | [address] | | | | | | [phone] | | | +--------+ + + + [...] | | | | | INT | VIKASH-Radiologist 2: | | | | | | KIM ROBERTS, | | | | | | M.DJuan JoseRIGHT HIP ARTHROGRAM | | | | | | AND | | | | | | INJECTION: 10/01/00 | | | | | | Dictated 10/01/00 | | | | | | INDICATION: The patient | | | | | | is a 40-year-old female | | | | | | with advancedarthritis | | | | | | of the right hip. The | | | | | | patient had a prior | | | | | | right hiparthrogram and | | | | | | injection in May | | | | | | of the prior year | | | | | | withapproximately three | | | | | | months of pain | | | | | | relief. The pain has | | | | | | returned. | | | | | | ALLERGIES: No known | | | | | | drug allergies. | | | | | | OPERATORS: | | | | | | | | | | | | Vikash | | | | | | Darin, | | | | | | M.D. | | | | | | | | | | | | Suzie | | | | | | ld Malcom Roberts | | | | | | DISCUSSION: [...] | | | | | patient. The | | | | | | patient's questionswere | | | | | | answered and both | | | | | | written and oral consent | | | | | | were | | | | | | obtained. Theright | | | | | | femoral pulse was marked | | | | | | after palpation. The | | | | | | skin entrance sitewas | | | | | | marked after | | | | | | fluoroscopy. This | | | | | | area was prepped and | | | | | | draped inusual sterile | | | | | | fashion. 1% lidocaine | | | | | | was used for local | | | | | | anesthesia. A22 gauge | | | | | | spinal needle was used | | | | | | to access the right | | | | | | joint | | | | | | capsule.Approximately | | | | | | 3-4 cc of Hypaque-60 | | | | | | contrast was then | | | | | | injected.Resistance to | | | | | | the contrast was | | | | | | met. A spot image | | | | [...] | | | | in the joint | | | | | | capsule. Dilution of | | | | | | the contrastwas | | | | | | noted. The patient | | | | | | tolerated the procedure | | | | | | well without | | | | | [...] | | | | | | thefemoral | | | | | | head. There is | | | | | | thinning of both the | | | | | | medial femoral | | | | | | andacetabular articular | | | | | | cartilage. There is | | | | | | limited range of motion | | | | | | ofthe right hip | | | | | | particularly with | | | | | | external | | | | | | rotation. This may be | | | | | | due toimpingement from | | | | | | the osteophytic collar. | | | | | | IMPRESSION: | | | | | | 1. Adhesive | | | | | | capsulitis. | | | | | | [...] her | | | | | | orthopedicsuDr. bryan | | | | | | Jose. [...]
--- OUTSIDE RECORDS SUMMARY | ~2019-02-26 | XMS | Encounter Summary ---
Demographics + + + | Address | [address] | | | [place] [address] | + + + | Home Phone [...] Author + + + | Author | [facility] | + + + | Organization | [facility] | + + [...] Team Providers + +------+ + | Care Produce Associate Name | Role | Phone | + +------+ + PCP | Unavailable | + +------+ + Encounter Details +--------+ + + + + | Date | Type | Department | Care Team | Description | +--------+ + + + + | 10/05/ | Results | Orthopaedics at | Lloyd Garcia MD | | | 2002 | Only | [facility] [address] | | | | | | [facility] | | | | | | Mailcode: PV430 | | | | | | Physician'yokasta Ocampo | | | | | | [place], [place] | | | | | | [address] | | | | | | [phone] | | | +--------+ + + + [...] | | | | | | COMPARISON: 05/23/200 | | | | | | 2. | | | | | | HISTORY: Osteoarthrit | | | | | | is of the right | | | | | | hip. Request for | | | | [...] | | | | | the hip | | | | | | joint. Confirmation | | | | | | [...] | | | | | pressure was | | | | | | applied. No | | | | | | complicationsoccurred | | | | | | during the procedure. | | | | | | FINDINGS: Initial | | | | | | injection of contrast | | | | | | showed opacification of | | | | | | theiliopsoas | | | | | | bursa. Following | | | | | | [...] | | + +---------+ + + | [facility] DEPARTMENT OF | | | | [...] COMPARISON: | | | | | | 2. | | | | | | HISTORY: Osteoarthrit | | | | | | is of the right | | | | | | hip. Request for | | | | [...] | | | | | the hip | | | | | | joint. Confirmation | | | | | | [...] | | | | | pressure was | | | | | | applied. No | | | | | | complicationsoccurred | | | | | | during the procedure. | | | | | | FINDINGS: Initial | | | | | | injection of contrast | | | | | | showed opacification of | | | | | | theiliopsoas | | | | | | bursa. Following | | | | | | [...] | | + +---------+ + + | [facility] DEPARTMENT OF | | | | | RADIOLOGY | | | | + +---------+ + + documented in this encounter Visit Diagnoses Not on filedocumented in this encounter"
--- OUTSIDE RECORDS SUMMARY | ~2019-02-26 | XMS | Encounter Summary ---
Demographics + + + | Address | [address] | | | [place] [address] | + + + | Home Phone [...] + + + | Author | [facility] | + + + | Organization | [facility] | + + + | [...] Team Providers + +------+ + | Care Iv Therapy Nurse Name | Role | Phone | + +------+ + | No Pcp Per Patient | PCP | Unavailable | + +------+ + Encounter Details +--------+ + + + + | Date | Type | Department | Care Team | Description | +--------+ + + + + | 09/15/ | Hospital | Radiation Oncology | | | | 2007 | Encounter | at [facility] [address] | | | | | | [address] | | | | | | [place] | | | | | | [place], | | | | | | [place] [address] | | | | | | [phone] | | | +--------+ + + + [...]
--- OUTSIDE RECORDS SUMMARY | ~2019-02-26 | XMS | Encounter Summary ---
Demographics + + + | Address | [address] | | | [place] [address] | + + + | Home Phone [...] Author + + + | Author | [facility] | + + + | Organization | [facility] | + + + | [...] Team Providers + +------+ + | Care Gravity Manager Name | Role | Phone | + +------+ + | Yuki Pantoja MD | PCP | | + +------+ + Encounter Details +--------+ + + + + | Date | Type | Department | Care Team | Description | +--------+ + + + + | 10/11/ | Documentati | Anesthesiology | Unknown . | | | 2003 | on | [address] | | | | | | [address] [place] | | | | | | [place], [place] | | | | | | [address] | | | +--------+ + + + [...] + + documented in this encounter Results ANESTHESIA/SEDATION (10/11/2003 10:54 AM PST) + + + | Narrative | Performed At | + + + | Ordered by an unspecified provider. | | + + + + + | Transcriptions | + + | 10/11/2003 10:54 AM PST Anesthesia PostOp Report | | | | Patient: SHELBY GALDAMEZ Med Rec: [id number] Sex F Bdate: 1960 | | Date/Time Data | | Entered Into [facility] | | Anesth PostOp | | Surgery Date [id number] 10/11/03 10:54 | | [id number] 10/06/03 10:47 | | [id number] 10/04/03 10:47 | | [id number] 10/01/03 11:25 | | [id number] 09/28/03 10:01 | | [id number] 09/27/03 11:35 | | [id number] 09/14/03 11:13 | | [id number] 08/17/03 10:51 | | Anesthesiologist SEBASTIAN MARIO 10/11/03 10:54 | | ADELIA STEPHEN 10/06/03 10:47 | | GUDELIA TEMPLETON 10/04/03 10:47 | | SEBASTIAN MARIO 10/01/03 11:25 | | OSWALDO FRASER 09/28/03 10:01 | | CHER LYNN 09/27/03 11:35 | | ANNA MYERS 09/14/03 11:13 | | DENISSE GATICA 08/17/03 10:51 | | Resident Anesthesiolog ABEBE FELDMAN 10/11/03 10:54 | | IVY MATOS 10/06/03 10:47 | | LOLI TILLMAN 10/04/03 10:47 | | DELMY DAVIDSON 10/01/03 11:25 | | ABEBE FELDMAN 09/27/03 11:35 | | EDGARDO COREA 08/17/03 10:51 | | Complications | | None/None Reported YES 10/11/03 15:06 | | YES 09/30/03 10:14 | | YES 08/17/03 10:26 | | Outcomes Information | | Satisfied with care YES 10/11/03 15:06 | | YES 09/30/03 10:14 | | YES 08/17/03 10:26 | | Info obtained from PATIENT 10/11/03 15:06 | | PATIENT 09/30/03 10:14 | | PATIENT 08/17/03 10:26 | | Outcome of Anesthesia NO CHANGE IN HOSPITAL COURSE 10/11/03 15:06 | | NO CHANGE IN HOSPITAL COURSE 09/30/03 10:14 | | NO CHANGE IN HOSPITAL COURSE 08/17/03 10:26 | | | + + documented in this encounter Visit Diagnoses Not on filedocumented in this encounter"
--- OUTSIDE RECORDS SUMMARY | ~2019-02-26 | XMS | Encounter Summary ---
Demographics + + + | Address | [address] | | | [place] [address] | + + + | Home Phone [...] Author + + + | Author | [facility] | + + + | Organization | [facility] | + + + | Address [...] Team Providers + +------+ + | Care Edi Specialist Name | Role | Phone | [...] as of this encounter Progress Notes Interface, Garment Sewer Hand In - 04/28/2005 7:30 PM PDTClinic Date: 01/20/2004 [facility] History: Shelby is a 43-year-old woman who is being followed in our clinic for postoperative methicillin-sensitive Staphylococcus 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 She developed a large fluid pocket and had a pigtail catheter placed which we have been advancing until her last visit on January 06, 2004, when the pigtail catheter was removed. She had then started packing the wound with plain Nu Gauze and had been taking Keflex as well as a course of Flagyl. She presents today stating that she has finished her Keflex on Thursday, January 15, 2004. She has not had any bouts of fever or chills. She had been packing the wound with the plain Nu Gauze until approximately 3 days ago when the wound seemed to close overnight. She stated that she did not believe there was any packing material left in the wound when it closed, however. She did have an instance where a small piece of hard white matter had been spit from the wound that was approximately 3 x 5 mm. She said that it looked and felt like bone, but since then, the wounds have closed over, and she has not had any drainage at all. 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 She is not taking pain medication and does not need any at this visit today. Physical Examination General: A well-developed, well-nourished, elevated BMI woman in no acute distress. Alert and oriented x4. Afebrile. Ambulating with the aid of a cane and doing well. Musculoskeletal: The right hip wound has completely healed. There is no sign of erythema or other signs of infection. The wound looks very good actually. Assessment: A 43-year-old woman with a long history of right hip problems including postoperative infection and placement of pigtail catheter for fluid pocket drainage, now completely healed. Plan: I have written her a prescription for warm water aerobic program to start getting her back into exercise and getting her back into shape. She will go 3 times a week for 6 weeks. She will follow up with this p.r.n. If there are any problems that occur or if she has any questions, she may give us a call for an appointment. We would be glad to see her again; otherwise, she will be seen as needed in the Orthopedic Clinic. Mariella Camacho P.A.-C. Lloyd Garcia M.D. / [id number] / [id number] / [id number] / [id number] Tdocumented in this encounter Plan of Treatment Not on filedocumented as of this encounter Visit Diagnoses Not on filedocumented in this encounter"
--- OUTSIDE RECORDS SUMMARY | ~2019-02-26 | XMS | Encounter Summary ---
Demographics + + + | Address | [address] | | | [place] [address] | + + + | Home Phone [...] Author + + + | Author | [facility] | + + + | Organization | [facility] | + + + | Address [...] Team Providers + +------+ + | Care Business Objects Architect Name | Role | Phone | + +------+ + | Travis Mcginnis MD | PCP | Unavailable | + +------+ + Encounter Details +--------+ + + + + | Date | Type | Department | Care Team | Description | +--------+ + + + + | 11/23/ | Hospital | Diagnostic | | | | 2010 | Encounter | Radiology at [facility] | | | | | | [address] [facility] | | | | | | [facility] | | | | | | Mailcode: PV450 | | | | | | [place] | | | | | | [place], [place] | | | | | | [address] | | | | | | [phone] | | | +--------+ + + + [...] + + + +---------+ + + | Pownal-3 Fatty | Take by mouth. | | [...] X-RAY HIP 2 VIEWS | Routin | 11/23/2010 | Hip pain, right | Results for this | | RIGHT W/ PELVIS 1 | e | 2:55 PM | | [...] | | | | | | loosening | | | | | | orfailure. Superior | | | | | | displacement of the | | | | | | greater trochanteric | | | | | | fragmentis | | | | | | unchanged. The left | | | | | | hip joint space is | | | | | | maintained and the | | | | | | femoralhead contour is | | | | | | smooth. The SI joints | | | | | | are | | | | | | unremarkable. there | | | | | | is nosoft tissue | | | | | | abnormality. IMPRESSION: | | | | | | Stable noncemented | | | | | | right total hip | | | | | | arthroplasty in normal | | | | | | alignmentwithout | | | | | | [...] | | | | STATUS FINAL / | | | | | | MOSHE FLOWERS | | | | + + + + + + + + | Specimen | + + | | + + + +---------+ + + | Performing | Address | City/State/Zipcode | Phone Number | | Organization | | | | + +---------+ + + | [facility] DEPARTMENT OF | | | | | RADIOLOGY | | | | + +---------+ + + documented in this encounter Visit Diagnoses + + | Diagnosis | + + | Hip pain, right Pain in joint, pelvic region and thigh | + + documented in this encounter"
--- OUTSIDE RECORDS SUMMARY | ~2019-02-26 | XMS | Encounter Summary ---
Demographics + + + | Address | [address] | | | [place] [address] | + + + | Home Phone [...] + + + | Author | [facility] | + + + | Organization | [facility] | + + + | Address [...] Providers + +------+ + | Care Framing Carpenter Name | Role | Phone | + +------+ + PCP | Unavailable | + +------+ + Encounter Details +--------+ + + + + | Date | Type | Department | Care Team | Description | +--------+ + + + + | 01/10/ | Results | Orthopaedics at | Lloyd Garcia MD | | | 1999 | Only | [facility] [address] | | | | | | [facility] | | | | | | Mailcode: PV430 | | | | | | Physician'yokasta Ocampo | | | | | | [place], [place] | | | | | | [address] | | | | | | [phone] | | | +--------+ + + + [...] | HIP, 2 VIEWS | Routin | 01/11/2000 | | Results for this | | | e | 8:10 AM | | procedure are in the | | | | PDT | | results section. | + +--------+ + + + | X-RAY PELVIS 1 VIEW | Routin | 01/11/2000 | | Results for this | | | e | 8:10 AM | | procedure are in the | | | | PDT | | results section. | + +--------+ + + + documented in this encounter Results PELVIS 1 VIEW (01/11/2000 8:10 AM PDT) + + + + + + | Component | Value | Ref Range | Performed | Pathologist | | | | | At | Signature | + + + + + + | PELVIS 1 | Radiologist 1: FRANCISCO, | | | | | VIEW | Malcom CASTILLOPELVIS, | | | | | | AP; RIGHT HIP, AP AND | | | | | | LATERAL: 01/11/2000 | | | | | | Dictated 01/16/2000 | | | | | | COMPARISON: Compariso | | | | | | n is made with prior | | | | | | study of 04/18/1999. | | | | | | FINDINGS: There is no | | | | | | change in appearance of | | | | | | medial right | | | | | | moderatejoint narrowing | | | | | | and moderate joint | | | | | | marginal osteophyte | | | | | | formation. Nofracture | | | | | | or dislocation is | | | | | | seen. Bone density is | | | | | | normal. No | | | | | | softtissue mass is seen. 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 END OF | | | | | [...] + +---------+ + + HIP, 2 VIEWS (01/11/2000 8:10 AM PDT) + + + + + + | Component | Value | Ref Range | Performed | Pathologist | | | | | At | Signature | + + + + + + | HIP, 2 | Radiologist 1: FRANCISCO, | | | | | VIEWS | Malcom CASTILLOPELVIS, | | | | | | AP; RIGHT HIP, AP AND | | | | | | LATERAL: 01/11/2000 | | | | | | Dictated 01/16/2000 | | | | | | COMPARISON: Compariso | | | | | | n is made with prior | | | | | | study of 04/18/1999. | | | | | | FINDINGS: There is no | | | | | | change in appearance of | | | | | | medial right | | | | | | moderatejoint narrowing | | | | | | and moderate joint | | | | | | marginal osteophyte | | | | | | formation. Nofracture | | | | | | or dislocation is | | | | | | seen. Bone density is | | | | | | normal. No | | | | | | softtissue mass is seen. 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 END OF | | | | | [...]
--- OUTSIDE RECORDS SUMMARY | ~2019-02-26 | XMS | Encounter Summary ---
Demographics + + + | Address | [address] | | | [place] [address] | + + + | Home Phone | | + + + | Preferred Language | Unknown | + + + | Marital Status | Single | + + + | Mormonism Affiliation | Unknown | + + + | Race | Unknown | + + + | Ethnic Group | Unknown | + + + Author + + + | Author | [facility] | + + + | Organization | [facility] | + + + | Address | Unknown | + + + | Phone | Unavailable | + + + Support + + +---------+ + | Name | Relationship | Address | Phone | + + +---------+ + | Kristel Teresa | ECON | Unknown | | + + +---------+ + Care Team Providers + +------+ + | Care Packaging Supervisor Name | Role | Phone | + +------+ + | Jaimie Monreal MD | PCP | | + +------+ + Reason for Visit +--------+ + | Reason | Comments | +--------+ + | Other | pain uncontrollable | +--------+ + Encounter Details +--------+ + + + + | Date | Type | Department | Care Team | Description | +--------+ + + + + | 02/24/ | Telephone | Doron | Xiang Sepulveda, | Other (pain | | 2019 | | [facility] | DO [address] | uncontrollable) | | | | [address] | [place] | | | | | [place], [place] | [address] | | | | | [address] | | | | | | [phone] | | | +--------+ + + + [...] [place] | | | | | | [address] | | | | | | | | +--------+---------+ + + + as of this encounter Visit Diagnoses Not on filein this encounter"
--- OUTSIDE RECORDS SUMMARY | ~2019-02-26 | XMS | Encounter Summary ---
Demographics + + + | Address | [address] | | | [place] [address] | + + + | Home Phone [...] Author + + + | Author | [facility] | + + + | Organization | [facility] | + + + | Address [...] Team Providers + +------+ + | Care Sheet Heater Helper Name | Role | Phone | [...] as of this encounter Progress Notes Interface, Railroad Car Repairman In - 04/01/2006 3:12 AM PDTCLINIC DATE: [...] a total hip replacement. Lloyd Garcia M.D. Special Tester, Orthopedics and Rehabilitation / [id number] / [id number] / [id number] / cc: Ninfa Guillen M.D. [address] [id number] signed by Interface, Railroad Car Repairman In at 04/01/2006 3:1 2 AM PDTdocumented in this encounter Plan of Treatment Not on filedocumented as of this encounter Visit Diagnoses Not on filedocumented in this encounter"
--- OUTSIDE RECORDS SUMMARY | ~2019-02-26 | XMS | Encounter Summary ---
Demographics + + + | Address | [address] | | | [place] [address] | + + + | Home Phone [...] Team Providers + +------+ + | Care Log Clerk Name | Role | Phone | + +------+ + | Travis Mcginnis MD | PCP | Unavailable | + +------+ + Encounter Details +--------+ + + + + | Date | Type | Department | Care Team | Description | +--------+ + + + + | 02/20/ | Used Car Make Ready Mechanic | Orthopaedics at | Kalyan Arias MD | Hip replacement | | 2009 | | [facility] [address] | [address] | (Primary Dx) | | | | [facility] | [facility] | | | | | Mailcode: PV430 | [facility] [place] | | | | | [facility] | [address] | | | | | [place], [place] | [phone] | | | | | [address] | | | | | | [phone] | | | +--------+ + + + [...] 2 VIEWS RIGHT W/ PELVIS 1 VIEW (02/20/2010 2:13 PM PDT) + + + + + + | Component | Value | Ref Range | Performed | Pathologist | | | | | At | Signature | + + + + + + | X-RAY HIP 2 | STUDY: HIP 2 VIEWS RIGHT | | | | | VIEWS | W/ PELVIS 1 VIEW | | | | | RIGHT W/ | 02/20/10 14:13:00 | | | | | PELVIS 1 | INDICATION: Six month | | | | | VIEW | follow-up of right hip. | | | | | | COMPARISON: Right hip | | | | | | two views 07/07/2009.. | | | | | | FINDINGS: Noncemented | | | | | | total right hip | | | | | | arthroplasty is in | | | | | | unchanged positionwith | | | | | | near anatomic | | | | | | alignment. The | | | | | | femoral component is | | | | | | well seatedin the | | | | | | proximal femur. The | | | | | | lateral greater | | | | | | trochanteric plate | | | | | | andcerclage wire device | | | | | | is redemonstrated with | | | | | | interval breakage of | | | | | | oneof the 4 cerclage | | | | | | wires. Two | | | | | | interfragmentary screws | | | | | | are unchangedin | | | | | | position. There is | | | | | | unchanged proximal | | | | | | displacement of the | | | | | | greatertrochanteric | | | | | | fragment. The | | | | | | incompletely visualized | | | | | | sacroiliacjoints, left | | | | | | hip joint and symphysis | | | | | | pubis are | | | | | | maintained. There | | | | | | isdiffuse | | | | | | osteopenia. There is | | | | | | no acute fracture or | | | | | | destructiveosseous | | | | | | lesions. The soft | | | | | | tissues are | | | | | | unremarkable. | | | | | | IMPRESSION: | | | | | | 1. Interval breakage | | | | | | of one of 4 cerclage | | | | | | wires attaching a | | | | | | greatertrochanteric | | | | | | plate to the proximal | | | | | | right femur. Stable | | | | | | proximaldisplacement of | | | | | | the greater trochanteric | | | | | | fragment. | | | | | | 2. Unchanged | | | | | | appearance of a | | | | | | noncemented total right | | | | | | hiparthroplasty in | | | | | | normal alignment without | | | | | | hardeare failure | | | | | | orloosening. I have | | | | | | personally viewed this | | | | | | procedure/exam and | | | | | | reviewed this report. | | | | | | Author: HUSSEIN Meek | | | | | | RAMA SUTTONevlindawer: | | | | | | MOSHE FLOWERS M.D. | | | | | | STATUS FINAL / | | | | | | MOSHE GUIDRY | | | | | | PENDING FINAL APPROVAL / | | | | | | Dr. HUSSEIN SUTTON | | | | | | | | | | + + + + + + + + | Specimen | + + | | + + + +---------+ + + | Performing | Address | City/State/Zipcode | Phone Number | | Organization | | | | + +---------+ + + | [facility] DEPARTMENT OF | | | | | RADIOLOGY | | | | + +---------+ + + documented in this encounter Visit Diagnoses + + | Diagnosis | + + | Hip replacement - Primary Hip joint replacement by other means | + + documented in this encounter"
--- OUTSIDE RECORDS SUMMARY | ~2019-02-26 | XMS | Encounter Summary ---
Demographics + + + | Address | [address] | | | [place] [address] | + + + | Home Phone [...] Providers + +------+ + | Care Medical Insurance Biller Name | Role | Phone | + +------+ + PCP | Unavailable | + +------+ + Encounter Details +--------+ + + + + | Date | Type | Department | Care Team | Description | +--------+ + + + + | 10/01/ | Procedure - | | Documentation, | [...] + + | TEACHING PHYSICIAN | | 10/01/2003 | | | + +--------+ + + + documented in this encounter Visit Diagnoses Not on filedocumented in this encounter"
--- OUTSIDE RECORDS SUMMARY | ~2019-02-26 | XMS | Encounter Summary ---
Demographics + + + | Address | [address] | | | [place] [address] | + + + | Home Phone [...] Providers + +------+ + | Care Assistant Fitness Manager Name | Role | Phone | [...] as of this encounter Progress Notes Interface, Electrical Systems Drafter In - 04/28/2005 5:10 PM PDT Referred [...]
--- OUTSIDE RECORDS SUMMARY | ~2019-02-26 | XMS | Encounter Summary ---
Demographics + + + | Address | [address] | | | [place] [address] | + + + | Home Phone [...] Team Providers + +------+ + | Care Opera Singer Name | Role | Phone | + +------+ + PCP | Unavailable | + +------+ + Encounter Details +--------+ + + + + | Date | Type | Department | Care Team | Description | +--------+ + + + + | 11/22/ | Results | | Other, Faculty | | | 2003 | Only | | [phone] | | +--------+ + + + + [...] + + + | [facility] | [address] | [place] [address] | | | LAB-MICRO | | | [...] + + + | [facility] | [address] | [place] [address] | | | LAB-MICRO | | | [...] + + + | [facility] | [address] | [place] [address] | | | LAB-MICRO | | | [...] + + + | [facility] | [address] | [place] [address] | | | LAB-MICRO | | | [...] + + + | [facility] | [address] | [place] [address] | | | LAB-MICRO | | | [...] | + + + + + | [facility] | [address] | [place] [address] | | | LAB-MICRO | | | [...] + + + | [facility] | [address] | [place] [address] | | | LAB-MICRO | | | | + + + + + documented in this encounter Visit Diagnoses Not on filedocumented in this encounter"
--- OUTSIDE RECORDS SUMMARY | ~2019-02-26 | XMS | Encounter Summary ---
Demographics + + + | Address | [address] | | | [place] [address] | + + + | Home Phone [...] + + | Author | [facility] | + + + | Organization | [facility] | + + + | [...] Team Providers + +------+ + | Care Work Study Student Name | Role | Phone | + [...] findings, | | 2009 | | [facility] [address] | [address] [facility] | teaching, guidance, | | | | [facility] [address] | [facility] | and counseling | | | | Mailcode: PV430 | [place], [place] | (injection) | | | | [facility] | [address] | | | | | [place], [place] | [phone] | | | | | [address] | | | | | | [phone] | | | +--------+ + + + [...]
--- OUTSIDE RECORDS SUMMARY | ~2019-02-26 | XMS | Encounter Summary ---
Demographics + + + | Address | [address] | | | [place] [address] | + + + | Home Phone [...] Team Providers + +------+ + | Care Railroad Inspector Name | Role | Phone | + +------+ + PCP | Unavailable | + +------+ + Encounter Details +--------+ + + + + | Date | Type | Department | Care Team | Description | +--------+ + + + + | 08/16/ | Results | Orthopaedics at | Benson Cooper MD | | | 2002 | Only | [facility] [address] | [address] [place] | | | | | [facility] | [address] [place], [place] | | | | | Mailcode: PV430 | [address] | | | | | Physician[facility] | | | | | | [place], [place] | | | | | | [address] | | | | | | [phone] | | | +--------+ + + + [...] 1: ARMANDO | | | | | | Malcom ALVAREZ-Radiologist | | | | | | 2: KIM ROBERTS, | | | | | | MalcomAP OF THE RIGHT | | | | | | HIP: 08/16/2003 | | | | | | Dictated 08/17/2003 | | | | | | COMPARISON: AP pelvis | | | | | | 08/16/2003, right hip | | | | | | 01/26/2003. | | | | | | FINDINGS: Osteophytes | | | | | | have been resected from | | | | | | the right femoral | | | | | | headwith inferior | | | | | | femoral head osteophytes | | | | | | remaining. A greater | | | | | | tochanterosteotomy has | | | | | | been performed with | | | | | | fixation by cancellous | | | | | | bone screws.Surgical | | | | | | graciela and drains are | | | | | | in place. IMPRESSION: | | | | | | 1. Resection of | | | | | | femoral head | | | | | | osteophytes. | | | | | | 2. Greater | | | | | | trochanteric osteotomy | | | | | | with screw fixation. | | | | | | END OF IMPRESSION: | | | | + + + + + + + + | Specimen | + + | | + + + +---------+ + + | Performing | Address | City[facility]State[facility] | Phone Number | | Organization | | | | + +---------+ + + | [facility] DEPARTMENT OF | | | | | [...] | | | | | | 1. Postoperative | | | | | | changes to the right | | | | | | hip, with interval | | | | | | resection offemoral head | | | | | | osteophytes. | | | | | | 2. Osteotomy of the | | | | [...] | + +---------+ + + | [facility] DEPARTMENT OF | | | | | RADIOLOGY | | | | + +---------+ + + documented in this encounter Visit Diagnoses Not on filedocumented in this encounter"
--- OUTSIDE RECORDS SUMMARY | ~2019-02-26 | XMS | Encounter Summary ---
Demographics + + + | Address | [address] | | | [place] [address] | + + + | Home Phone [...] Team Providers + +------+ + | Care Dining Service Supervisor Name | Role | Phone | + +------+ + | No Pcp Per Patient | PCP | Unavailable | + +------+ + Encounter Details +--------+ + + + + | Date | Type | Department | Care Team | Description | +--------+ + + + + | 12/16/ | Hospital | Diagnostic | | | | 2008 | Encounter | Radiology at [facility] | | | | | | [address] [facility] | | | | | | [facility] | | | | | | Mailcode: PV450 | | | | | | [address] | | | | | | [place], [place] | | | | | | [address] | | | | | | [phone] | | | +--------+ + + + [...] | | | | | | YESICASTATUS PENDING FINAL | | | | | [...]
--- OUTSIDE RECORDS SUMMARY | ~2019-02-26 | XMS | Encounter Summary ---
Demographics + + + | Address | [address] | | | [place] [address] | + + + | Home Phone [...] Author + + + | Author | [facility] | + + + | Organization | [facility] | + + + | Address | Unknown | + + + | Phone | Unavailable | + + + Support + + + + + | Name | Relationship | Address | Phone | + + + + + | Casandra Smith | ROBERTO | [place] | | + + + + + Care Team Providers + +------+ + | Care Landscape Management Technician Name | Role | Phone [...] as of this encounter Progress Notes Interface, Smelting Engineer In - 04/28/2005 7:30 PM PDTClinic Date: [...] signs of recurrent infection. Lloyd Garcia M.D. [facility] / [id number] / [id number] / [id number] / [id number] cc: Ninfa Guillen M.D. [address] [place], [place] [address]Isabzytmywdkgh signed by Interface, Smelting Engineer In at 04/28/2005 7:3 0 PM PDTdocumented in this encounter Plan of Treatment Not on filedocumented as of this encounter Visit Diagnoses Not on filedocumented in this encounter"
--- OUTSIDE RECORDS SUMMARY | ~2019-02-26 | XMS | Encounter Summary ---
Demographics + + + | Address | [address] | | | [place] [address] | + + + | Home Phone [...] Team Providers + +------+ + | Care Fast Food Manager Name | Role | Phone | [...] [address] | | | | | | [facility] | | | | | | Mailcode: PV430 | | | | | | Physician'yokasta Ocampo | | | | | | [place], [place] | | | | | | [address] | | | | | | [phone] | | | +--------+ + + + [...] | | | | | FINDINGS: The supervisor locomotive | | | | | | radiographs [...] | | + +---------+ + + | [facility] DEPARTMENT OF | | | | | [...] | | | | | FINDINGS: The supervisor locomotive | | | | | | radiographs [...] | | + +---------+ + + | [facility] DEPARTMENT OF | | | | | [...] | | + +---------+ + + | [facility] DEPARTMENT OF | | | | | RADIOLOGY | | | | + +---------+ + + documented in this encounter Visit Diagnoses Not on filedocumented in this encounter"
--- OUTSIDE RECORDS SUMMARY | ~2019-02-26 | XMS | Encounter Summary ---
Demographics + + + | Address | [address] | | | [place] [address] | + + + | Home Phone [...] Team Providers + +------+ + | Care Die Designer Name | Role | Phone | + [...] | | | | JOSE | [address] [facility] | | | | | | MEDICAL | [facility] | | | | | | CLINIC [address] | [address] [place], | | | | | | [address] | [place] | | | | | | [place], [place] | [address] | | | | | | [address] | Phone: | | | | | | | [phone] | | | | | | | Fax: | | | | | | | [phone] | +--------+--------+ + + + + Encounter Details +--------+---------+ + + + | Date | Type | Department | Care Team | Description | +--------+---------+ + + + | 05/13/ | Office | Orthopaedics at | Kalyan Colby MD | 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 KALYAN COLBY MD [facility] ORTHOPAEDICS & REHABILITATION [address] [facility] [place] [address] aRaul kasper - 8 12:04 PM PDT [...] w ound vac placement were undertaken with penitentiary antibiotics until the infection cleared. She now [...]
--- OUTSIDE RECORDS SUMMARY | ~2019-02-26 | XMS | Encounter Summary ---
Demographics + + + | Address | [address] | | | [place] [address] | + + + | Home Phone [...] Team Providers + +------+ + | Care Shot Hole Driller Name | Role | Phone | + +------+ + PCP | Unavailable | + +------+ + Encounter Details +--------+ + + + + | Date | Type | Department | Care Team | Description | +--------+ + + + + | 11/22/ | Results | Orthopaedics at | Peng Muro | | | 2003 | Only | [facility] [address] Akil Osei MD,PhD [address] | | | | | [facility] | [facility] [address] | | | | | Mailcode: PV430 | [place], [place] | | | | | [facility] | [address] | | | | | [place], [place] | [phone] | | | | | [address] | | | | | | [phone] | | | +--------+ + + + [...] + +--------+ + + + | CT RECONSTRUCTION | Routin | 11/22/2003 | | Results for this | | CORONAL | e | 8:55 AM | | procedure are in the | | | | PST | | results section. | + +--------+ + + + | CT HIP RT W CONTRAST | Routin | 11/22/2003 | | Results for this | | | e | 8:55 AM | | procedure are in the | | | | PST | | results section. | + +--------+ + + + documented in this encounter Results CT RECONSTRUCTION CORONAL (11/22/2003 8:55 AM PST) + + + + + + | Component | Value | Ref Range | Performed | Pathologist | | | | | At | Signature | + + + + + + | CT | Radiologist 1: TRIPP, | | | | | RECONSTRUCT | Raegan HERRERA M.D.STUDY: | | | | | ION CORONAL | Contrast enhanced CT | | | | | | scan right hip with | | | | | | sagittal and | | | | | | coronalreconstructions. | | | | | | TECHNIQUE: Following IV | | | | | | administration of 145 cc | | | | | | of omnipaque | | | | | | 300contrast transaxial 2 | | | | | | mm images through the | | | | | | right hip wereobtained. | | | | | | Coronal and sagittal | | | | | | reconstructions were | | | | | | displayed. COMPARISON: | | | | | | November 11 2003 | | | | | | DISCUSSION: Extensive | | | | | | degenerative changes are | | | | | | seen in the right hip | | | | | | with jointspace | | | | | | narrowing, osteophyte | | | | | | formation and | | | | | | subchondral | | | | | | sclerosis. Thepatient | | | | | | is status post rim | | | | | | osteophyte resection and | | | | | | | | | | | | trochlearosteotomy. E | | | | | | xtensive soft tissue | | | | | | calcification is | | | | | | seenposterolaterally to | | | | | | the greater | | | | | | trochanter. The rim | | | | | | enhancing | | | | | | fluidcollection | | | | | | consistent with an | | | | | | abscess shows no | | | | | | significant | | | | | | intervalchange in size | | | | | | and measures 5.5 cm | | | | | | transverse and 8.5x 8 cm | | | | | | insagittal | | | | | | dimensions. There is | | | | | | no evidence of | | | | | | progressive | | | | | | bonedestruction of the | | | | | | proximal femur. | | | | | | IMPRESSION: 1. No | | | | | | interval change in size | | | | | | or appearance of the | | | | | | abscess in thelateral | | | | | | proximal thigh. | | | | | | 2. 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 3. 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 Addendum # 1 | | | | | | by Raegan Queen | | | | | | Malcom on 26-Nov-2003 | | | | | | 15:42 There is no change | | | | | | to this report. The | | | | | | addendum is | | | | | | toadministratively link | | | | | | the associated | | | | | [...] + +---------+ + + | [facility] DEPARTMENT OF | | | | | RADIOLOGY | | | | + +---------+ + + CT HIP RT W CONTRAST (11/22/2003 8:55 AM PST) + + + + + + | Component | Value | Ref Range | Performed | Pathologist | | | | | At | Signature | + + + + + + | CT HIP RT W | Radiologist 1: TRIPP, | | | | | CONTRAST | Raegan HERRERA M.D.STUDY: | | | | | | Contrast enhanced CT | | | | | | scan right hip with | | | | | | sagittal and | | | | | | coronalreconstructions. | | | | | | TECHNIQUE: Following IV | | | | | | administration of 145 cc | | | | | | of omnipaque | | | | | | 300contrast transaxial 2 | | | | | | mm images through the | | | | | | right hip wereobtained. | | | | | | Coronal and sagittal | | | | | | reconstructions were | | | | | | displayed. COMPARISON: | | | | | | November 11 2003 | | | | | | DISCUSSION: Extensive | | | | | | degenerative changes are | | | | | | seen in the right hip | | | | | | with jointspace | | | | | | narrowing, osteophyte | | | | | | formation and | | | | | | subchondral | | | | | | sclerosis. Thepatient | | | | | | is status post rim | | | | | | osteophyte resection and | | | | | | | | | | | | trochlearosteotomy. E | | | | | | xtensive soft tissue | | | | | | calcification is | | | | | | seenposterolaterally to | | | | | | the greater | | | | | | trochanter. The rim | | | | | | enhancing | | | | | | fluidcollection | | | | | | consistent with an | | | | | | abscess shows no | | | | | | significant | | | | | | intervalchange in size | | | | | | and measures 5.5 cm | | | | | | transverse and 8.5x 8 cm | | | | | | insagittal | | | | | | dimensions. There is | | | | | | no evidence of | | | | | | progressive | | | | | | bonedestruction of the | | | | | | proximal femur. | | | | | | IMPRESSION: 1. No | | | | | | interval change in size | | | | | | or appearance of the | | | | | | abscess in thelateral | | | | | | proximal thigh. | | | | | | 2. 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 3. 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 Addendum # 1 | | | | | | by Raegan Queen, | | | | | | M.D. on 26-Nov-2003 | | | | | | 15:42 There is no change | | | | | | to this report. The | | | | | | addendum is | | | | | | toadministratively link | | | | | | the associated | | | | | [...] + +---------+ + + | [facility] DEPARTMENT OF | | | | | RADIOLOGY | | | | + +---------+ + + documented in this encounter Visit Diagnoses Not on filedocumented in this encounter"
--- OUTSIDE RECORDS SUMMARY | ~2019-02-26 | XMS | Encounter Summary ---
Demographics + + + | Address | [address] | | | [place] [address] | + + + | Home Phone [...] Team Providers + +------+ + | Care Boarding House Cook Name | Role | Phone | + [...] as of this encounter Discharge Summaries Interface, Electronic Development Technician In 04/28/2005 5:10 PM PDTAdmission Date: 09/25/2003 [...]
--- OUTSIDE RECORDS SUMMARY | ~2019-02-26 | XMS | Encounter Summary ---
Demographics + + + | Address | [address] | | | [place] [address] | + + + | Home Phone [...] Author + + + | Author | [facility] | + + + | Organization | [facility] | + + + | Address [...] Providers + +------+ + | Care Commercial Correspondent Name | Role | Phone | + [...] | Orthopedics | Diagnoses | Non-[facility] | [facility] | | | | | | Epic Dept | Kalyan Barrientos MD | | | | | Osteoarthros | | [address] | | | | | is, | | [address] | | | | | unspecified | | Rd [place], | | | | | whether | | [place] | | | | | generalized | | [address] | | | | | or | | Phone: | | | | | localized, | | [phone] | | | | | pelvic | | Fax: | | | | | region and | | [phone] | | | | | thigh | | | +--------+--------+ + + + + Encounter Details +--------+---------+ + + + | Date | Type | Department | Care Team | Description | +--------+---------+ + + + | 12/16/ | Office | Orthopaedics at | Kalyan Arias MD | Hip Replacement | | 2008 | Visit | [facility] [address] | [address] | (Primary Dx); Hip | | | | [facility] [address] | [address] | Pain | | | | Mailcode: PV430 | [place], [place] | | | | | [facility] | [address] | | | | | [place], [place] | [phone] | | | | | [address] | | | | | | [phone] | | | +--------+---------+ + + + [...] + + + + | Temperature | 37.6 C (99.7 F) | 12/16/2008 2:03 PM | | | | | PDT [...] + + + + | Weight | 120.2 kg (265 lb) | 12/16/2008 2:03 PM | | | | | PDT | | + + + + + | Height | 162.6 cm (5' 4") | 12/16/2008 2:03 PM | | | | | PDT | | + + + + + | Body Mass Index | 45.49 | 12/16/2008 2:03 PM | | | | | PDT | | + + + + + documented in this encounter Progress Notes Kalyan Arias MD - 12/16/2008 2:27 PM PDT~3 mo s/p complex right JUAN DAVID and excision HO. 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 She reports she fell several times at SNF but had xrays there and was told they were ok. 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
--- OUTSIDE RECORDS SUMMARY | ~2019-02-26 | XMS | Encounter Summary ---
Demographics + + + | Address | [address] | | | [place] [address] | + + + | Home Phone [...] Team Providers + +------+ + | Care Stagecraft Teacher Name | Role | Phone | [...] | radiculopath | [address] | [address] | | | | Orthopedics | y | [address] | [address] | | | | | Procedures | [address] | Rd [place], | | | | | CONSULT TO | [place], [place] | [place] | | | | | ORTHOPEDICS | [address] | [address] | | | | | AND | Phone: | Phone: | | | | | REHABILITATI | [phone] | [phone] | | | | | ON | Fax: | Fax: | | | | | | [phone] | [phone] | +--------+--------+ + + + + Diagnostic [...] | Lumbar | Tyrone Barrientos MD | [address] | | | | | radiculopath | [address] | [address] | | | | | y | [address] | [facility] | | | | | Procedures | [facility] | Mailcode: | | | | | MRI SPINE | [place], [place] | [address] | | | | | LUMBAR WO | [address] | [place] | | | | | CONT | Phone: | Research | | | | | | [phone] | [place] | | | | | | Fax: | [place], [place] | | | | | | [phone] | [address] | | | | | | | Phone: | | | | | | | [phone] | | | | | | | Fax: | | | | | | | [phone] | +--------+--------+ + + + + Reason [...] | | | Orthopedics | | | [address] | | | | | | | [address] | | | | | | | Jamie [place], | | | | | | | [place] | | | | | | | [address] | | | | | | | Phone: | | | | | | | [phone] | | | | | | | Fax: | | | | | | | [phone] | +--------+--------+ + + + + Encounter Details +--------+---------+ + + + | Date | Type | Department | Care Team | Description | +--------+---------+ + + + | 07/06/ | Office | Orthopaedics at | Tyrone Colby MD | Lumbar | | 2009 | Visit | [facility] [address] | [address] | radiculopathy; Hip | | | | [facility] | [facility] [address] | replacement | | | | Mailcode: PV430 | [place], [place] | | | | | [facility] | [address] | | | | | [place], [place] | [phone] | | | | | [address] | | | | | | [phone] | | | +--------+---------+ + + + [...] and plan of care. TYRONE COLBY MD [facility] ORTHOPAEDICS & REHABILITATION [facility] [facility] Mailcode: Pv[address] [facility] [address] Taz Grider M D - 07/06/2010 9:32 [...] | | | | from 2004. Very | | | | | | slight anterior wedging | | | | | | of M3cziapmks/superior | | | | | | corner, [...] | | | | | | focalextrusion. Diffu | | | | | | sely bulging disk | | | | | [...] | | | | | Author: MARTINA BURCH, | | | | | | MalcomReviewer: [...] | | + +---------+ + + | [facility] DEPARTMENT OF | | | [...]
--- OUTSIDE RECORDS SUMMARY | ~2019-02-26 | XMS | Encounter Summary ---
Demographics + + + | Address | [address] | | | [place] [address] | + + + | Home Phone [...] Team Providers + +------+ + | Care Middle School Resource Teacher Name | Role | Phone | + +------+ + | Travis Mcginnis MD | PCP | Unavailable | + +------+ + Encounter Details +--------+ + + + + | Date | Type | Department | Care Team | Description | +--------+ + + + + | 10/30/ | Abstract | Infectious | Carolina Putnam | | | 2010 | | Diseases at [facility] 3rd | MEGAN Red[address] | | | | | Floor [address] | [facility] | | | | | [facility] | [place] [address] | | | | | Mailcode: L457 | [phone] | | | | | Physicians [address] | | | | | | [place], [place] | | | | | | [address] | | | | | | [phone] | | | +--------+ + + + [...] + | CBC, WITH | Routin | 10/30/2010 | | Results for this | | DIFFERENTIAL | e | | | procedure are in the | | | | | | results section. | + +--------+ + + + | COMPLETE METABOLIC | Routin | 10/30/2010 | | Results for this [...] COMPLETE METABOLIC SET (NA,K,CL,CO2,BUN,CREAT,GLUC,CA,AST,ALT,BILI TOTAL,ALK PHOS,ALB,PROT TOTAL) (10/30/2010) + +-------+ + + + | Component | Value | Ref Range | Performed | Pathologist | | | | | At | Signature | + +-------+ + + + | GLUCOSE, | 87 | 65 - 110 mg/dL | NON [facility] | | | PLASMA | | | LAB | | | (LAB) | | | | | + +-------+ + + + | BUN, PLASMA | 12 | mg/dL | NON [facility] | | | (LAB) | | | LAB | | + +-------+ + + + | CREATININE | 0.56 | mg/dL | NON [facility] | | | PLASMA | | | LAB | | | (LAB) | | | | | + +-------+ + + + | TOTAL | 6.2 | g/dL | NON [facility] | | | PROTEIN, | | | LAB | | | PLASMA | | | | | | (LAB) | | | | | + +-------+ + + + | ALBUMIN, | 3.4 | g/dL | NON [facility] | | | PLASMA | | | LAB | | | (LAB) | | | | | + +-------+ + + + | CALCIUM, | 8.5 | mg/dL | NON [facility] | | | PLASMA | | | LAB | | | (LAB) | | | | | + +-------+ + + + | BILIRUBIN | 0.2 | Transcutaneous | NON [facility] | | | TOTAL | | Bilirubinometer | LAB | | + +-------+ + + + | ALK PHOS | 53 | U/L | NON [facility] | | | | | | LAB | | + +-------+ + + + | AST(SGOT) | 19 | U/L | NON [facility] | | | | | | LAB | | + +-------+ + + + | SODIUM, | 137 | mmol/L | NON [facility] | | | PLASMA | | | LAB | | | (LAB) | | | | | + +-------+ + + + | POTASSIUM, | 4.7 | mmol/L | NON [facility] | | | PLASMA | | | LAB | | | (LAB) | | | | | + +-------+ + + + | CHLORIDE, | 104 | mmol/L | NON [facility] | | | PLASMA | | | LAB | | | (LAB) | | | | | + +-------+ + + + | TOTAL CO2, | 25 | mmol/L | NON [facility] | | | PLASMA | | | LAB | | | (LAB) | | | | | + +-------+ + + + | ALT (SGPT) | 19 | U/L | NON [facility] | | | | | | LAB | | + +-------+ + + + | C-REACTIVE | 7 | mg/dl | NON [facility] | | [...] + +---------+ + + CBC, WITH DIFFERENTIAL (10/30/2010) + + + + + + | Component | Value | Ref Range | Performed | Pathologist | | | | | At | Signature | + + + + + + | WHITE CELL | 8.6 | K/cu mm | NON [facility] | | | COUNT | | | LAB | | + + + + + + | RED CELL | 3.91 | M/cu mm | NON [facility] | | | COUNT | | | LAB | | + + + + + + | HEMOGLOBIN | 10.9 (A) | 12.1998 - 15 | NON [facility] | | | | | g/dL | LAB | | + + + + + + | HEMATOCRIT | 33.9 | % | NON [facility] | | | | | | LAB | | + + + + + + | MCV | 86.7 | fL | NON [facility] | | | | | | LAB | | + + + + + + | MCH | 28 | pg | NON [facility] | | | | | | LAB | | + + + + + + | MCHC | 32 | g/dL | NON [facility] | | | | | | LAB | | + + + + + + | PLATELET | 689 | K/cu mm | NON [facility] | | | COUNT | | | LAB | | + + + + + + | NEUTROPHIL | 63.8 | % | NON [facility] | | | % | | | LAB | | + + + + + + | LYMPHOCYTE | 27.7 | % | NON [facility] | | | % | | | LAB | | + + + + + + | MONOCYTE % | 5.3 | % | NON [facility] | | | | | | LAB | | + + + + + + | EOS % | 2.4 | % | NON [facility] | | | | | | LAB | | + + + + + + | BASO % | 0.8 | % | NON [facility] | | | | | | LAB | | + + + + + + | RDW | 15 | % | NON [facility] | | | | | | LAB | | + + + + + + | MPV | | fL | NON [facility] | | | | | | LAB | | + + + + + + | NEUTROPHIL | | K/cu mm | NON [facility] | | | # | | | LAB | | + + + + + + | LYMPHOCYTE | | K/cu mm | NON [facility] | | | # | | | LAB | | + + + + + + | MONOCYTE # | | K/cu mm | NON [facility] | | | | | | LAB | | + + + + + + | EOS # | | K/cu mm | NON [facility] | | | | | | LAB | | + + + + + + | BASO # | | | NON [facility] | | | | | | LAB | | + + + + + + | SEDIMENTATI | 86 | mm/hr | NON [facility] | | | ON RATE | | | LAB | | + + + + + [...]
--- OUTSIDE RECORDS SUMMARY | ~2019-02-26 | XMS | Encounter Summary ---
Demographics + + + | Address | [address] | | | [place] [address] | + + + | Home Phone [...] Team Providers + +------+ + | Care Textile Pin Worker Name | Role | Phone | [...] | | | is, | RICHARD | [facility] | | | | | unspecified | [facility] | Rd [place], | | | | | whether | CL[address] | [place] | | | | | generalized | [address] | [address] | | | | | or | [place], | Phone: | | | | | localized, | [place] [address] | [phone] | | | | | pelvic | Phone: | Fax: | | | | | region and | [phone] | [phone] | | | | | thigh | Fax: | | | | | | | [phone] | | +--------+--------+ + + + + Encounter Details +--------+---------+ + + + | Date | Type | Department | Care Team | Description | +--------+---------+ + + + | 01/20/ | Office | Orthopaedics at | Tesfaye Saenz | Hip Pain; | | 2008 | Visit | [facility] [address] | MEGAN Evangelista | Hip Replacement | | | | [facility] | | | | | | Mailcode: PV430 | | | | | | [place] | | | | | | [place], [place] | | | | | | [address] | | | | | | [phone] | | | +--------+---------+ + + + [...] agree with the note. TYRONE COLBY MD [facility] ORTHOPAEDICS & REHABILITATION [address] [place] [address] Mailcode: Pv430 [place] [address] esfaye Saenz PA-Sea - 01/20/2009 [...] CRP pending. Offered to refer her to [facility] pain clinic if she would like opinion [...] 11:01: RAHUL COMMENTS, prev report: Slide | LOIN | | review pending. | DEPARTMENT OF | | | PATHOLOGY | + + + + + + + + | Performing | Address | City/State/Zipcode | Phone Number | | Organization | | | | + + + + + | [facility] DEPARTMENT OF | [address] | [place] [address] | | | PATHOLOGY | [address] | | | + + + + + | [facility] | [address] | [place] [address] | | | PATHOLOGY | [address] [...] | + + + + + | [facility] | [address] [facility] | [place] [address] | | | PATHOLOGY | [address] | | | + + + + + | [facility] | [address] [place] [address] | [place] [address] | | | PATHOLOGY | [address] [...] Change effective 10/26/08 | | | [facility]) | | | [facility] | | | [address] | | | [place] [address] | | + + + + + + + + | Performing | Address | City/State/Zipcode | Phone Number | | Organization | | | | + + + + + | [facility] | [address] | [place] [address] | | | LABORATORY | | | | + + + + + documented in this encounter Visit Diagnoses + + | Diagnosis | + + | Hip pain Pain in joint, pelvic region and thigh | + + | Hip replacement Hip joint replacement by other means | + + documented in this encounter"
--- OUTSIDE RECORDS SUMMARY | ~2019-02-26 | XMS | Encounter Summary ---
Demographics + + + | Address | [address] | | | [place] [address] | + + + | Home Phone [...] Team Providers + +------+ + | Care Cupola Worker Name | Role | Phone | [...] [facility] [address] | [address] [facility] | procedure | | | | [facility] | [facility] | | | | | Mailcode: PV430 | [place], [place] | | | | | Physician[facility] [address] | [address] | | | | | [place], [place] | [phone] | | | | | [address] | | | | | | [phone] | | | +--------+ + + + [...]
--- OUTSIDE RECORDS SUMMARY | ~2019-02-26 | XMS | Encounter Summary ---
Demographics + + + | Address | [address] | | | [place] [address] | + + + | Home Phone [...] Author + + + | Author | [facility] | + + + | Organization | [facility] | + + + | Address [...] Team Providers + +------+ + | Care Frozen Meat Cutter Name | Role | Phone | + +------+ + PCP | Unavailable | + +------+ + Encounter Details +--------+ + + + + | Date | Type | Department | Care Team | Description | +--------+ + + + + | 11/03/ | Office | [facility] | Note, [...] as of this encounter Progress Notes Interface, Nursing Program Coordinator In - 04/28/2005 6:17 PM PDTClinic Date: 11/03/2003 ORTHOPEDIC AND REHABILITATION CLINIC NOTE History: Shelby is a 42-year-old woman who had originally seen us for right hip osteophytes. She had undergone a right hip cheilectomy on August 16, [address] Garcia. 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 She has undergone many irrigation and d bridements of the right hip, with the last procedure being approximately the first week in September of this year. She has been on intravenous antibiotics, particularly Ancef and Flagyl. She has had continued problems. She called our medical advice line last week and stated that she was having some problems. We advised her to come in to see us. She instead went to [facility] emergency department, where she was seen and released, apparently. She then came in to clinic today, to plastics clinic with Dr. Araujo for suture removal. When she was through with Dr. Araujo, she presented to orthopedics clinic without an appointment, and we were glad to see her. Her wound was still looking very erythema. There were a couple of draining sinuses, the worst one being at the junction of the hip and the pannus. She was not particularly tender to palpation, and she denied pain overall in the right hip. She also says that she has not had any fevers in the last week. She has had no chills, nausea, or vomiting. Physical Examination: GENERAL: Well-developed, well-nourished, obese woman, ambulating with the aid of a walker, with a hip brace on. When the brace is removed, the wound is very erythematous, and very warm to touch. There are a couple of draining sinuses, as mentioned above. The fluid is serous in nature. The patient did have an ultrasound today, which revealed a 5 x 6 cm loculated fluid collection, just deep to the mid incision area of the hip. Laboratory Values: CBC: White blood cell count 8.9, hematocrit 32.5, ESR 3. CRP is pending. Assessment: 4 weeks post primary hip closure, now with a fluid collection deep to the incision. Plan: Arrangements were made for an after-hours aspiration of the fluid pocket. However, while the arrangements were being made, Ms. Galdamez left the clinic against medical advice. She was asked repeatedly not to leave, and to let allow us to take care of her tonight. She adamantly refused to stay, stating that she feels she is going to get better without any further intervention, and that she will return to see us in 2 weeks. However, we will be giving her a call tomorrow morning. We will allow her to get a chance to get back home to [place]. We will call her tomorrow and reiterate how important it is that we take care of this fluid collection in her hip and try to get her better. Dori Wong. Lloyd Garcia M.D. Attending Physician /jamil P [id number] signed by Interface, Nursing Program Coordinator In at 04/28/2005 6:17 PM PDTdoc umented in this encounter Plan of Treatment Not on filedocumented as of this encounter Visit Diagnoses Not on filedocumented in this encounter"
--- OUTSIDE RECORDS SUMMARY | ~2019-02-26 | XMS | Clinical Summary ---
Demographics + + + | Address | [address] | | | [place] [address] | + + + | Home Phone | | + + + | Preferred Language | Unknown | + + + | Marital Status | Single | + + + | Shinto Affiliation | Unknown | + + + | Race | Unknown | + + + | Ethnic Group | Unknown | + + + Author + + + | Author | [facility] | + + + | Organization | [facility] | + + + | Address | Unknown | + + + | Phone | Unavailable | + + + Support + + +---------+ + | Name | Relationship | Address | Phone | + + +---------+ + | Kristel Teresa | ECON | Unknown | | + + +---------+ + Care Team Providers + +------+ + | Care Stacking Machine Operator Name | Role | Phone | + +------+ + | Jaimie Monreal MD | PP | | + +------+ + Allergies + + + + + + | Active Allergy | Reactions | Severity | Noted | Comments | | | | | Date | | + + + + + + | Adhesive Tape | Rash | Medium | 08/16/20 [...] | Levofloxacin | Itching | Medium | 06/04/20 | | | | | | 17 [...] + + + Current Medications + + +---------+---------+------+------+-------+ | Prescription | Sig. | Disp. | Refills | Star | End | Statu | | | | | | t | Date | s | | | | | | Date | | | + + +---------+---------+------+------+-------+ | albuterol | Inhale 1 puff every | | | / | | Activ | | (VENTOLIN HFA) 108 | 6 hours as needed | | | 4/20 | | e | | (90 Base) MCG/ACT | for shortness of | | | 12 | | | | inhaler | breath | | | | | | + + +---------+---------+------+------+-------+ | diclofenac | Take 1 tablet by | 60 | 11 | 01/1 | 01/ | Activ | | (VOLTAREN) 75 MG EC | mouth 2 (two) times | tablet | | 0/20 | 0/20 | e | | tablet | daily. | | | 19 | 20 | | + + +---------+---------+------+------+-------+ | diclofenac | Apply 2 g topically | 400 g | 2 | 03/0 | | Activ | | (VOLTAREN) 1 | 4 (four) times daily | | | 7/20 | | e | | %Indications: Facet | for 30 days. | | | 19 | | | | arthropathy, lumbar, | [...] | | | | | + + +---------+---------+------+------+-------+ | | Take 1 tablet by | 90 | 0 | 06/0 | 07/0 | Activ | | oxyCODONE-acetaminop | mouth every 8 | tablet | | 1/20 | 1/20 | e | | hen (PERCOCET) 5-325 | (eight) hours as | | | 19 | 19 | | | MG per | needed for Pain for | | | | | | | tabletIndications: | up to 30 days. | | | | | | | Radiculopathy of | | | | | | | | lumbar region, Facet | | | | | | [...] | | | | | + + +---------+---------+------+------+-------+ | omeprazole | Take 20 mg by mouth. | | | | 05/0 | Disco | | (PRILOSEC) 20 MG | | | | | 2/20 | ntinu | | capsule | | | | | 19 | ed | + + +---------+---------+------+------+-------+ | ibuprofen (MOTRIN) | Take by mouth. | | | | 05/0 | Disco | | 800 MG tablet | | | | | 2/20 | ntinu | | | | | | | 19 | ed | + + +---------+---------+------+------+-------+ | | Take 1 tablet by | 90 | 0 | 04/0 | 05/0 | Disco | | oxyCODONE-acetaminop | mouth every 8 | tablet | | 7/20 | 2/20 | ntinu | | hen (PERCOCET) 5-325 | (eight) hours as | | | 19 | 19 | ed | | MG per | needed for Pain for | | | | | | | tabletIndications: | up to 30 days. | | | | | | | Radiculopathy of | | | | | | | | lumbar region, Facet | | | | | | [...] | | | | | + + +---------+---------+------+------+-------+ | | Take 1 tablet by | 90 | 0 | 05/0 | 05/0 | Disco | | oxyCODONE-acetaminop | mouth every 8 | tablet | | 2/20 | 2/20 | ntinu | | hen (PERCOCET) 5-325 | (eight) hours as | | | 19 | 19 | ed | | MG per | needed for Pain for | | | | | | | tabletIndications: | up to 30 days. | | | | | | | Radiculopathy of | | | | | | | | lumbar region, Facet | | | | | | [...] | | | | | + + +---------+---------+------+------+-------+ Active Problems + + + | Problem [...] | +--------+ + + + + | 02/25/ | Telephone | | Brenna Andrade MA | Other | | 2018 | | | | | +--------+ + + + + | 02/24/ | Telephone | | Xiang Sepulveda, | Other (pain | | 2018 | | | DO | uncontrollable) | +--------+ + + + + | 02/08/ | Refill | | Xiang Sepulveda, | | | 2018 | | | DO | | +--------+ + + + + | 01/30/ | Telephone | | Xiang Sepulveda, | Other (Requesting | | 2018 | | | DO | 01/29 visit note.) | +--------+ + + + + | 01/29/ | Office | | Xiang Sepulveda, | Radiculopathy of | | 2018 | Visit | | DO | lumbar [...] + + | 12/11/ | Telephone | | Xiang Sepulveda, | Medication Problem | | 2018 | | | DO | (Change on Rx refill | | | | | | order.) | +--------+ + + + + | 12/04/ | Office | | Xiang Sepulveda, | Radiculopathy of | | 2019 | Visit | | DO | lumbar region; Facet | | | | | | arthropathy, | | | | | | lumbar; | | | | | | Osteoarthritis of | | | | | | lumbar spine, | | | | | | unspecified spinal | | | | | | osteoarthritis | | | | | | complication status | +--------+ + + + + from [...] + + + | Blood Pressure | 179/99 | 01/29/2019 11:26 AM PDT | + + + + | Pulse | 102 | 01/29/2019 11:26 AM PDT | + + + + | Temperature | - | - | + + + + | Respiratory Rate | 18 | 01/29/2019 11:26 AM PDT | + + + + | Oxygen Saturation | 97% | 01/29/2019 11:26 AM PDT | + + + + | Inhaled Oxygen | - | - | | Concentration | | | + + + + | Weight | 126.6 kg (279 lb) | 12/04/2018 10:56 AM PST | + + + + | Height | 162.6 cm (5' 4") | 12/04/2018 10:56 AM PST | + + + + | Body Mass Index | 47.89 | 12/04/2018 10:56 AM PST | + + + + Plan of Treatment +--------+---------+ + + + | Date | Type | Specialty | Care Team | Description | +--------+---------+ + + + | 04/09/ | Office | | Xiang Sepulveda, | | | 2019 | Visit | | DO [address] | | | | | | [place] | | | | | | [id number] | | | | | | | [...] + + + + + | Vaccine: Zoster (1 | | | | | of 2) | 9 | | | + + + + + | Vaccine: Influenza | | | | | (Season Ended) | 9 | | | + + [...] +------+-------+ + | MEDICAID | [place] | [id number] | | | [address] | | | [place] | | | | [place] | | | [place] | | | | [address] | | | 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
--- OUTSIDE RECORDS SUMMARY | ~2019-02-26 | XMS | Encounter Summary ---
Demographics + + + | Address | [address] | | | [place] [address] | + + + | Home Phone | | + + + | Preferred Language | Unknown | + + + | Marital Status | Single | + + + | Taoism Affiliation | PRE | + + + | Race | White | + + + | Ethnic Group | Not or | + + + Author + + + | Author | [facility] | + + + | Organization | [facility] | + + + | Address | Unknown | + + + | Phone | Unavailable | + + + Support + + + + + | Name | Relationship | Address | Phone | + + + + + | Casandra Smith | ROBERTO | [place] | | + + + + + Care Team Providers + +------+ + | Care Stockroom Worker Name | Role | Phone | + +------+ + PCP | Unavailable | + +------+ + Encounter Details +--------+ + + + + | Date | Type | Department | Care Team | Description | +--------+ + + + + | 07/27/ | Vehicle Refinisher | Orthopaedics at | Tesfaye Saenz | Osteoarthritis of | | 2007 | | [facility] [address] | Hip; Hip Pain | | | | [facility] | | | | | | Mailcode: PV430 | | | | | | [place] | | | | | | [place], [place] | | | | | | [address] | | | | | | [phone] | | | +--------+ + + + [...] | | | | | with cystic | | | | | | change. There | | | | | | ismarginal femoral head | | | | | | and acetabular | | | | | | spurring. There is | | | | | [...] | | | | | with cystic | | | | | | change. There | | | | | | ismarginal femoral head | | | | | | and acetabular | | | | | | spurring. There is | | | | | [...]
--- OUTSIDE RECORDS SUMMARY | ~2019-02-26 | XMS | Encounter Summary ---
Demographics + + + | Address | [address] | | | [place] [address] | + + + | Home Phone [...] Author + + + | Author | [facility] | + + + | Organization | [facility] | + + + | [...] Team Providers + +------+ + | Care Market Gardener Name | Role | Phone | + +------+ + PCP | Unavailable | + +------+ + Encounter Details +--------+ + + + + | Date | Type | Department | Care Team | Description | +--------+ + + + + | 08/22/ | Results | Orthopaedics at | Gino Baker MD | | | 2004 | Only | [facility] [address] | [address] | | | | | [facility] | [facility], | | | | | Mailcode: PV430 | [place] [address] | | | | | Phys[facility] | | | | | | [place], [place] | | | | | | [address] | | | | | | [phone] | | | +--------+ + + + [...]
--- OUTSIDE RECORDS SUMMARY | ~2019-02-26 | XMS | Encounter Summary ---
Demographics + + + | Address | [address] | | | [place] [address] | + + + | Home Phone [...] Providers + +------+ + | Care Weather Reporter Name | Role | Phone | + [...] | | 2010 | Visit | [facility] [address]-C | hip; Hip replacement | | | | [facility] | | | | | | Mailcode: PV430 | | | | | | [place] | | | | | | [place], [place] | | | | | | [address] | | | | | | [phone] | | | +--------+---------+ + + + [...] fairly well controlled at this point with [place]. She has been wbat and is overall [...] | Procedure Note | + + | Sophy Faculty - 11/06/2010 12:00 AM PST | | [...]
--- OUTSIDE RECORDS SUMMARY | ~2019-02-26 | XMS | Encounter Summary ---
Demographics + + + | Address | [address] | | | [place] [address] | + + + | Home Phone [...] Team Providers + +------+ + | Care Cloth Shearing Supervisor Name | Role | Phone | [...] as of this encounter Progress Notes Interface, Entertainment Usher In - 04/15/2006 1:11 AM PDTCLINIC DATE: [...] age and her obesity. Lloyd Garcia M.D. Optical Model Maker And Tester of Orthopedics and Rehabilitation / [id number] / [id number] / [id number] / cc: Rinaldi M.D. [address], [place] [id number] signed by Interface, Entertainment Usher In at 04/15/2006 1:1 1 AM PDTInterface, Entertainment Usher In - 04/15/2006 1:11 AM PDTCLINIC DATE: [...] her injection. MD Lloyd Merritt M.D. / [id number] / [id number] / [id number] / Tdocumented in this encounter Plan of Treatment Not on filedocumented as of this encounter Visit Diagnoses Not on filedocumented in this encounter"
--- OUTSIDE RECORDS SUMMARY | ~2019-02-26 | XMS | Encounter Summary ---
Demographics + + + | Address | [address] | | | [place] [address] | + + + | Home Phone [...] Team Providers + +------+ + | Care Hydrogeologist Name | Role | Phone | + +------+ + | Travis Mcginnis MD | PCP | Unavailable | + +------+ + Encounter Details +--------+ + + + + | Date | Type | Department | Care Team | Description | +--------+ + + + + | 11/09/ | Documentati | Vascular Access at | Lis Banuelos | | | 2010 | on | [facility] [address] | HERMINIO Swain [address] | | | | | [facility] | [facility] | | | | | [facility] | [place], [place] | | | | | [place], [place] | [address] | | | | | [address] | | | | | | [phone] | | | +--------+ + + + [...]
--- OUTSIDE RECORDS SUMMARY | ~2019-02-26 | XMS | Encounter Summary ---
Demographics + + + | Address | [address] | | | [place] [address] | + + + | Home Phone [...] Team Providers + +------+ + | Care Ic Design Engineer Name | Role | Phone | + +------+ + | Marta Jenkins CHIEF PROGRAM OFFICER | PCP | | + +------+ + Encounter Details +--------+ + + + + | Date | Type | Department | Care Team | Description | +--------+ + + + + | 11/18/ | Abstract | Digestive Health | Clinic, Surgery | | | 2019 | | [facility] [address] | | | | | | [address] | | | | | | Mailcode: [place] | | | | | | [facility] and | | | | | | Healing, [address] | | | | | | [facility] [place] | | | | | | [address] | | | | | | [phone] | | | +--------+ + + + [...]
--- OUTSIDE RECORDS SUMMARY | ~2019-02-26 | XMS | Encounter Summary ---
Demographics + + + | Address | [address] | | | [place] [address] | + + + | Home Phone [...] + + + | Author | [facility] | + + + | Organization | [facility] | + + + | [...] Team Providers + +------+ + | Care Sewer Pipe Sorter Name | Role | Phone | + [...] | | | | | | | [place], | | | | | | | [place] [address] | +--------+--------+ + + + + Encounter [...] | | | | [address] | [place], [place] | | | | | [place] | [address] | | | | | [place], | [phone] | | | | | [place] [address] | | | | | | [phone] | | | +--------+---------+ + + + [...] will treatment her today. KEVIN ARENAS MD [facility] [address] [place] [address] r Miller - 09/08/2008 2:21 PM PST [...] DAVID, bone graft and HO excision for chronometer assembler and adjuster masood osteoarthritis, HO formation, and non-union of [...]
--- OUTSIDE RECORDS SUMMARY | ~2019-02-26 | XMS | Encounter Summary ---
Demographics + + + | Address | [address] | | | [place] [address] | + + + | Home Phone [...] Author + + + | Author | [facility] | + + + | Organization | [facility] | + + + | Address [...] Team Providers + +------+ + | Care Datapower Developer Name | Role | Phone | + +------+ + | Yuki Pantoja MD | PCP | | + +------+ + Encounter Details +--------+ + + + + | Date | Type | Department | Care Team | Description | +--------+ + + + + | 08/11/ | Telephone | Orthopaedics at | Kalyan Arias MD | | | 2008 | | [facility] [address] | [address] [facility] | | | | | [facility] | [facility] | | | | | Mailcode: PV430 | [place], [place] | | | | | [facility] | [address] | | | | | [place], [place] | [phone] | | | | | [address] | | | | | | [phone] | | | +--------+ + + + [...]
--- OUTSIDE RECORDS SUMMARY | ~2019-02-26 | XMS | Encounter Summary ---
Demographics + + + | Address | [address] | | | [place] [address] | + + + | Home Phone [...] Author + + + | Author | [facility] | + + + | Organization | [facility] | + + + | Address [...] Team Providers + +------+ + | Care Pattern Chart Writer Name | Role | Phone | + [...] + + + + | 11/13/ | Weight Calculator | Infectious | Carolina Putnam | | | 2010 | | Diseases at [facility] [address] | MEGAN [address] | | | | | Floor [address] | [facility] | | | | | [facility] | [place] [address] | | | | | Mailcode: L457 | [phone] | | | | | [place] | | | | | | [place], [place] | | | | | | [address] | | | | | | [phone] | | | +--------+ + + + [...]
--- OUTSIDE RECORDS SUMMARY | ~2019-02-26 | XMS | Encounter Summary ---
Demographics + + + | Address | [address] | | | [place] [address] | + + + | Home Phone [...] Author + + + | Author | [facility] | + + + | Organization | [facility] | + + + | [...] Team Providers + +------+ + | Care Tongue And Groove Machine Setter Name | Role | Phone [...] as of this encounter Progress Notes Interface, Button Reclaimer In - 06/11/2006 3:03 AM PDTCLINIC DATE: [...] clinic today. It was done in a [place] in [facility] on December 08, 2001. There is mild [...] on an as-needed basis. Vince Krishna M.D. [facility] / [id number] / [id number] / [id number] / cc: Ninfa Guillen M.D. [address] [place] [phone] Kalyan Wu M.D. [facility] Orthopedics and Rehabilitation Lloyd Garcia M.D. [facility] Orthopedics and RehabiliationElectronically signed by Interface, Button Reclaimer In at 0 06/11/2006 3:03 AM PDTdocumented in this encounter Plan of Treatment Not on filedocumented as of this encounter Visit Diagnoses Not on filedocumented in this encounter"
--- OUTSIDE RECORDS SUMMARY | ~2019-02-26 | XMS | Encounter Summary ---
Demographics + + + | Address | [address] | | | [place] [address] | + + + | Home Phone [...] + + + | Author | [facility] | + + + | Organization | [facility] | + + + | [...] Team Providers + +------+ + | Care Agronomy Technician Name | Role | Phone | [...] as of this encounter Progress Notes Interface, Strategic Partnership Manager In - 07/22/2006 3:18 AM PDTCLINIC DATE: [...] of the right knee. Lloyd Garcia M.D. pharmacology professor, Orthopedics and Rehabilitation. BIRGIT / SALEEM [id number] / [id number] / [id number] / [id number] cc: JILLIAN TODD MD [address] [facility] [id number] signed by Interface, Strategic Partnership Manager In at 07/22/2006 3:1 8 AM PDTdocumented in this encounter Plan of Treatment Not on filedocumented as of this encounter Visit Diagnoses Not on filedocumented in this encounter"
--- OUTSIDE RECORDS SUMMARY | ~2019-02-26 | XMS | Encounter Summary ---
Demographics + + + | Address | [address] | | | [place] [address] | + + + | Home Phone [...] Team Providers + +------+ + | Care Institution Director Name | Role | Phone | [...] as of this encounter Discharge Summaries Interface, Drop Tester In 04/28/2005 5:10 PM PDTAdmission Date: 09/25/2003 [...]
--- OUTSIDE RECORDS SUMMARY | ~2019-02-26 | XMS | Encounter Summary ---
Demographics + + + | Address | [address] | | | [place] [address] | + + + | Home Phone [...] Providers + +------+ + | Care Promotions Assistant Name | Role | Phone | + +------+ + PCP | Unavailable | + +------+ + Encounter Details +--------+ + + + + | Date | Type | Department | Care Team | Description | +--------+ + + + + | 09/20/ | Discharge | | Summary, Discharge | [...] as of this encounter Discharge Summaries Interface, Conference Services Coordinator In 02/27/2006 3:05 AM PDTAdmission Date: 09/13/2003 Discharge Date: 09/20/2003 ATTENDING PHYSICIAN: Lloyd Garcia M.D. PRINCIPAL FINAL DIAGNOSIS: Right greater trochanter hardware failure. ADDITIONAL DIAGNOSIS: Status post right hip cheilectomy. PRINCIPAL PROCEDURE: Right open reduction and internal fixation of the greater trochanter with a Anthony claw plate. ADDITIONAL PROCEDURES: 1. Physical therapy. 2. Occupational therapy. 3. Abductor brace placement. REASON FOR ADMISSION: The patient is a 43-year-old woman status post a right cheilectomy. She was seen in the clinic approximately three weeks postoperatively and was found on x-ray to have failure of her right greater trochanter. Specifically at the time of her initial surgery she had a greater trochanteric osteotomy that was fixed with two cancellous screws. The proximal greater trochanter fragment has pulled off and has lost total hardware fixation. The patient was then consented for greater trochanteric open reduction and internal fixation. HOSPITAL COURSE: She was taken to the operating room on September 13, 2003, and had a Anthony claw plate placed. Postoperatively she had a Hemovac drain, which was discontinued on postoperative day three when the output was less than 30 cc per eight hours. She was started on physical therapy and occupational therapy and was made toe touch weightbearing in a hip abduction brace. She was on Ancef for 48 hours postoperatively as well as indomethacin to reduce incidence of heterotopic calcification. Her hematocrit was followed closely and went from about 30 to 25. CONDITION ON DISCHARGE: Stable. She is not to be readmitted. DISPOSITION: She was discharged to a [facility] facility. MEDICATIONS: 1. Docusate #80. 2. Oxycodone #80. 3. Indomethacin 25 mg, p.o. t.i.d. for six weeks. FOLLOWUP: She will see Dr. Garcia in two weeks. She is to continue wearing her abduction brace. If she has any changes in her wound she is to notify our clinic as soon as possible. Benson Boone M.D. Lloyd Garcia M.D. RT:[id number] signed by Interface, Conference Services Coordinator In at 02/27/2006 3:05 AM [facility] umented in this encounter Plan of Treatment Not on filedocumented as of this encounter Visit Diagnoses Not on filedocumented in this encounter"
--- OUTSIDE RECORDS SUMMARY | ~2019-02-26 | XMS | Encounter Summary ---
Demographics + + + | Address | [address] | | | [place] [address] | + + + | Home Phone [...] Author + + + | Author | [facility] | + + + | Organization | [facility] | + + + | Address [...] Providers + +------+ + | Care Box Car Checker Name | Role | Phone | [...] | | | is of hip | [facility] | [address] | | | | | Procedures | Rd | Rd [place], | | | | | CONSULT TO | [place], [place] | [place] [address] | | | | | ORTHOPEDICS | [address] | | | | | | AND [...] | | | | | [place] | [address] [facility] | | | | | | MEDICAL | [facility] | | | | | | CLINIC PO | [address] | | | | | | [address] | [place] | | | | | | [place], [place] | [address] | | | | | | [address] | | +--------+--------+ + + + + Encounter Details +--------+---------+ + + + | Date | Type | Department | Care Team | Description | +--------+---------+ + + + | 07/18/ | Office | Orthopaedics at | Lloyd Garcia MD | Osteoarthritis of | | 2005 | Visit | [facility] [address] | | Hip (Primary Dx); | | | | [facility] | | Hip Pain | | | | Mailcode: PV430 | | | | | | Physician's Terrence | | | | | | [place], [place] | | | | | | [address] | | | | | | [phone] | | | +--------+---------+ + + + [...] 05/23/2004, for hip pain who returns to [facility] after a right hip injection [...] states, that he recieves a letter from [facility] indicating the continued need. She has [...]
--- OUTSIDE RECORDS SUMMARY | ~2019-02-26 | XMS | Encounter Summary ---
Demographics + + + | Address | [address] | | | [place] [address] | + + + | Home Phone [...] Author + + + | Author | [facility] | + + + | Organization | [facility] | + + + | [...] Team Providers + +------+ + | Care Cage Unloader Name | Role | Phone | [...] | | | | | osteoarthrit | [address] | | | | | is of left | [address] | [address] | | | | | hip | [address] | Mailcode: | | | | | Procedures | [place], [place] | Center for | | | | | CONSULT TO | [address] | Health and | | | | | BARIATRIC | Phone: | Healing, | | | | | SURGERY | [phone] | Building [address] | | | | | | Fax: | [place], [place] | | | | | | [phone] | [address] | | | | | | | Phone: | | | | | | | | | | | | | | Fax: | | | | | | | [phone] | +--------+--------+ + + + + Reason [...] | | | | | | | [address] | | | | | | | [address] | | | | | | | [place], | | | | | | | [place] | | | | | | | [address] | | | | | | | Phone: | | | | | | | [phone] | | | | | | | Fax: | | | | | | | [phone] | +--------+--------+ + + + + Encounter Details +--------+---------+ + + + | Date | Type | Department | Care Team | Description | +--------+---------+ + + + | 10/02/ | Office | Orthopaedics at | Royce Durand, | Primary | | 2019 | Visit | [facility] [address] | [address] | osteoarthritis of | | | | Ave Mailcode: CH12A | [address] | left hip (Primary | | | | [facility] | [place], [place] | Dx); Left hip pain; | | | | and Healing, | [address] | Smoking; Chronic | | | | Floor [place], [place] | [phone] | obstructive | | | | [address] | | pulmonary disease, | | | | [phone] | | unspecified COPD | | | | | | type (HCC); Class 3 | | | | | | severe obesity with | | [...] present | | | | | | (HCC) | +--------+---------+ + + + Social [...] be different fro m the original. [facility] DEPARTMENT OF ORTHOPAEDICS & REHABILITATION Adult Reconstruction [...] W-FE,OTHER MIN (CENTRUM ORAL), Take by mouth. [place]-3 Fatty Acids-Vitamin E (FISH OIL) 1,000 mg [...] The patient was offered a referral to [facility] & [facility], for non-surgical and potentially surgical o ptions. [...] report as now presented. Final signature: Yue Porter, | | | 10/02/2018 10:09 AM Preliminary: [...]
--- OUTSIDE RECORDS SUMMARY | ~2019-02-26 | XMS | Encounter Summary ---
Demographics + + + | Address | [address] | | | [place] [address] | + + + | Home Phone [...] Author + + + | Author | [facility] | + + + | Organization | [facility] | + + + | Address [...] Providers + +------+ + | Care Program Analyst Name | Role | Phone | [...] [address] | | | | | | [place], [place] | | | | | | [address] | | | | | | [phone] | | | +--------+ + + + [...] | AB, IGM | Test performed by [place] | | | | | | [facility] | | | | | | [employer]. | | | | + + + + + + + + | Specimen | + + | | + + + + + + + | Performing | Address | City/State/Zipcode | Phone Number | | Organization | | | | + + + + + | [facility] | [address] | [place] [address] | | | LABORATORY | | | [...] | | | | | Children <58 | | | | | | Days. Test | | | | | | performed by [facility] | | | | [...] + + + + + | [facility] | [address] | [place] [address] | | | LABORATORY | | | [...] | + + + + + | [facility] | [address] | [place] [address] | | | LABORATORY | | | [...] | | AB TOTAL | Test performed | | | | | | by [facility] | | | | | | [facility] | | | | | | Laboratories. | | | | | | The test for total | | | | | | antibody to Hepatits A | | | | | | virus tests for | | | | | | both | | | | | | immunoglobulins G and M | | | | | | and is used primarily as | | | | | | an indicatorof | | | | | | past infection and | | | | | | immunity to HAV. When | | | | | | total antibodyresult | | | | | | is positive the | | | | | | Hepatitis A IgM antibody | | | | | | is | | | | | | automaticallyperformed | | | | | | to confirm | | | | | | recent infection. | | | | + + + + + + + + | Specimen | + + | | + + + + + + + | Performing | Address | City/State/Zipcode | Phone Number | | Organization | | | | + + + + + | [facility] | [address] | [place] [address] | | | LABORATORY | | | [...] [facility] DEPARTMENT OF | [address] | [place] [address] | | | PATHOLOGY | [address] | | | + + + + + | [facility] DEPARTMENT OF | [address] | [place] [address] | | | PATHOLOGY | [address] [...] DEPARTMENT OF | [address] | [place] [address] | | | PATHOLOGY | [address] | | | + + + + + | [facility] DEPARTMENT OF | [address] | [place] [address] | | | PATHOLOGY | [address] [...] [facility] DEPARTMENT OF | [facility] | [place] [address] | | | PATHOLOGY | [address] | | | + + + + + | [facility] DEPARTMENT OF | [facility] | [place] [address] | | | PATHOLOGY | [address] [...] [facility] DEPARTMENT OF | [address] | [place] [address] | | | PATHOLOGY | [address] | | | + + + + + | [facility] DEPARTMENT OF | [address] | [place] [address] | | | PATHOLOGY | [address] [...] [facility] DEPARTMENT OF | [address] | [place] [address] | | | PATHOLOGY | [address] | | | + + + + + | [facility] DEPARTMENT OF | [facility] | [place] [address] | | | PATHOLOGY | [address] [...] DEPARTMENT OF | [address] | [place] [address] | | | PATHOLOGY | [address] | | | + + + + + | [facility] | [address] | [place] [address] | | | PATHOLOGY | [address] [...] | + + + + + | [facility] | [address] | [place] [address] | | | LABORATORY | | | [...] | + + + + + | [facility] | [address] | [place] [address] | | | PATHOLOGY | [address] | | | + + + + + | [facility] | [facility] [address] | [place] [address] | | | PATHOLOGY | [address] [...] DEPARTMENT OF | [address] | [place] [address] | | | PATHOLOGY | [address] | | | + + + + + | [facility] DEPARTMENT OF | [address] | [place] [address] | | | PATHOLOGY | [address] [...] + + + + | PRODUCT | [id number] | | [facility] | | | UNIT [...] | + + + + + | [facility] | [address] | [place] [address] | | | PATHOLOGY | [address] | | | + + + + + | [facility] | [address] | [place] [address] | | | PATHOLOGY | [address] [...] + + + + | PRODUCT | [id number] | | [facility] | | | UNIT [...] [facility] DEPARTMENT OF | [address] | [place] [address] | | | PATHOLOGY | [address] | | | + + + + + | [facility] DEPARTMENT OF | [address] | [place] [address] | | | PATHOLOGY | [address] [...] | + + + | SPEC. OUTDATES 10/04/03 @ 0700 | [facility] | | | DEPARTMENT OF | | | PATHOLOGY | + + + + + + + + | Performing | Address | City/State/Zipcode | Phone Number | | Organization | | | | + + + + + | [facility] DEPARTMENT OF | [address] | [place] [address] | | | PATHOLOGY | [address] | | | + + + + + | [facility] DEPARTMENT OF | [address] | [place] [address] | | | PATHOLOGY | [address] [...] FLOWERS, | | | | | | M.D.AP | | | | | | PELVIS: 09/25/2003 | | | | | | Dictated 11/05/2003 | | | | | | TECHNIQUE: AP view. | | | | | | COMPARISON: 09/25/03, | | | | | | earlier on the same | | | | | | day. FINDINGS: The study | | | | | | was initially dictated | | | | | | on 09/26/03, but the | | | | | | reportis not available | | | | | | on and therefore | | | | | | is being | | | | | | redictated. Thescrews | | | | | | and surgical hardware | | | | | | of the greater | | | | | | trochanter have | | | | | | beenremoved. The | | | | | | remaining osseous | | | | | | structures are | | | | | | intact. There | | | | | | ismedial osteoarthritis | | | | | | of the right hip. The | | | | | | left hip joint is | | | | | | normal. IMPRESSION: | | | | | | 1. Status post | | | | | | removal of greater | | | | [...] | | | | | | FEW | | | | | | PMN's | | | | | | | | | | | | No Squamous | | | | | | epithelial | | | | | | [...] Staphylococcus | | | | | | | | | | | | aureus | | | | | | | | | | | | Prelim ID | | | | | | 1+ Mixed | | | | | | [...] + + + | [facility] | [address] | [place] [address] | | | LAB-MICRO | | | [...] | | | | | | MODERATE | | | | | | PMN's | | | | | | | | | | | | No Squamous | | | | | | epithelial | | | | | | cells | | | | | | | | | | | | Many Gram | | | | | | positive cocci in | | | | | | clusters | | | | | | Culture: [...] Staphylococcus | | | | | | | | | | | | aureus | | | | | | | | | | | | Prelim ID | | | | | | 2+ Mixed | | | | | | anaerobic gram positive | | | | | | | | | | | | growth [...] + + + | [facility] | [address] | [place] [address] | | | LAB-MICRO | | | [...] | | | | | | Rare | | | | | | PMN's | | | | | | | | | | | | No Squamous | | | | | | epithelial | | | | | | cells | | | | | | | | | | | | FEW Gram | | | | | | positive cocci in | | | | | | clusters | | | | | | Culture: 3+ | | | | | | Staphylococcus | | | | | | aureus | | | | | | | | | | | | Final | | | | | | ID St | | | | | | aphylococcus | | | | | | aureus | | | | | | | | | | | | Prelim ID | | | | | | 2+ Mixed | | | | | | anaerobic gram positive | | | | | | | | | | | | growth | | | | | | Final ID | | | | | | | | | | | | S. | | | | | | aureus Cefazolin | | | | | | S Clin | | | | | | damycin S | | | | | | Erythromycin | | | | | | | | | | | | S Oxacillin | | | | | | S Penicilli | | | | | | n | | | | | | R Trimeth/Sulfa | | | | | | S Vancomycin | | | | | | S | | | | | | Final Report | | | | + + + + + + + + | Specimen | + + | | + + + + + + + | Performing | Address | City/State/Zipcode | Phone Number | | Organization | | | | + + + + + | [facility] | [address] | [place] [address] | | | LAB-MICRO | | | | + + + + + documented in this encounter Visit Diagnoses Not on filedocumented in this encounter"
--- OUTSIDE RECORDS SUMMARY | ~2019-02-26 | XMS | Encounter Summary ---
Demographics + + + | Address | [address] | | | [place] [address] | + + + | Home Phone [...] Author + + + | Author | [facility] | + + + | Organization | [facility] | + + + | [...] Team Providers + +------+ + | Care Dipper And Drier Name | Role | Phone | + [...] | | Orthopedics | | | [address] | | | | | | | [facility] | | | | | | | Rd [place], | | | | | | | [place] | | | | | | | [address] | | | | | | | Phone: | | | | | | | [phone] | | | | | | | Fax: | | | | | | | [phone] | +--------+--------+ + + + + Encounter Details +--------+---------+ + + + | Date | Type | Department | Care Team | Description | +--------+---------+ + + + | 11/23/ | Office | Orthopaedics at | Tesfaye Saenz | Hip pain, right | | 2010 | Visit | [facility] [address] | MEGAN Evangelista | (Primary Dx); | | | | [facility] | | Osteoarthritis of | | | | Mailcode: PV430 | | hip; JUAN DAVID (total hip | | | | [facility] | | arthroplasty) | | | | [place], [place] | | | | | | [address] | | | | | | [phone] | | | +--------+---------+ + + + [...] still well controlled at this point with [place]. She has been wbat and is overall [...] view Consult to rehabilitation physical therapy outside [facility] documented in this encounter Plan of Treatment [...] +---------+ + + | [facility] DEPARTMENT OF | | | | | [...]
--- OUTSIDE RECORDS SUMMARY | ~2019-02-26 | XMS | Encounter Summary ---
Demographics + + + | Address | [address] | | | [place] [address] | + + + | Home Phone [...] Team Providers + +------+ + | Care Adaptive Physical Education Specialist Name | Role | Phone | [...] | Transcriptions | + + | Interface, Home Lighting Adviser In - 03/06/2006 1:10 AM PDT Date: | | 08/16/2003Attending Surgeon: Lloyd Garcia M.D.Dryer Feeder(s): | | Benson Boone M.D.Preoperative Diagnosis:Right hip [...] cc per Arreaga drain to | | 8-Peruvian tubes to 1 median Hemovac suctioncanister.Postoperative Plan:Ancef [...] brought to | | OperatingRoom #6 at [facility] Operating Room suite.She | | was [...] Vicryl mattress sutures andaddition | | of ysvnes-cr-mxoox 0 Vicryl. The fascial layer with zjsasnbxwsrvglbav-gv-lztbz 0 | | Vicryl sutures. Fadumo's fascia [...] to | | leaving the room.Lloyd Garcia M.D.Lithographic Etcher, Orthopedics and | | Rehabilitation / [id number] / [id number] / [id number] / [id number]: 08/16/2003T: | | 08/16/2003cc:Ninfa Guillen M.D.[address] [place] [address] | | | |The posterior superior iliac [...] Vicryl mattress sutures and | |addition of bjvmbc-fx-kfvcm 0 Vicryl. The fascial layer with interrupted | |cftckg-tl-ezezg 0 Vicryl sutures. Fadumo's fascia was closed [...] | | | |Lloyd Garcia M.D. | |Lithographic Etcher, Orthopedics and Rehabilitation | | | | / | |[id number] / [id number] / [id number] / [id number] | | | | | | | |cc: | | | |Ninfa Guillen M.D. | |[address], | |[place] [address] | + + documented in this encounter Visit Diagnoses Not on filedocumented in this encounter"
--- OUTSIDE RECORDS SUMMARY | ~2019-02-26 | XMS | Encounter Summary ---
Demographics + + + | Address | [address] | | | [place] [address] | + + + | Home Phone [...] Author + + + | Author | [facility] | + + + | Organization | [facility] | + + + | Address | [...] Providers + +------+ + | Care Ornamental Bronze Worker Name | Role | Phone | [...] Examination (Primary | | | | Stay [address] | | Dx) | | | | [facility] | | | | | | Mailcode: UHN65 | | | | | | Rose [place] | | | | | | [address] [place], [place] | | | | | | [address] | | | | | | [phone] | | | +--------+---------+ + + + [...] | + + +--------+ + + | [place] COLLECTION VENOUS | Procedures | Routin | [...] + + + + | PRODUCT | [id number] | | [facility] | | | UNIT [...] DEPARTMENT OF | [address] | [place] [address] | | | PATHOLOGY | [address] | | | + + + + + | [facility] DEPARTMENT OF | [address] | [place] [address] | | | PATHOLOGY | [address] [...] Performed At | + + + | [id number] Estimated GFR > 60 mL/min/1.73 sq m if non- | [facility] | | [place] [id number] Estimated GFR > 60 mL/min/1.73 sq m if | DEPARTMENT OF | | [place] GFR is estimated using the MDRD equation recommended by | PATHOLOGY | | the National Kidney Disease Education Program. Estimated GFR | | | Interpretive Information: <60 mL/min/1.73 sq m Chronic | | | Kidney Disease <15 mL/mon/1.73 sq m Kidney Failure | | | Estimated GFR greater than 60mL/min/1.73 is of limited clinical | | | Value. The MDRD equation is not valid in the following situations: | | | - Patients under 18 years of age - Severe malnutrition or obesity | | | - Vegetarian diet - Rapidly changing kidney function New | | | Creatinine Reference ranges effective 08. | | + + + + + + + + | Performing | Address | City/State/Zipcode | Phone Number | | Organization | | | | + + + + + | [facility] DEPARTMENT OF | [address] | [place] [address] | | | PATHOLOGY | [address] | | | + + + + + | [facility] | [facility] | [place] [address] | | | PATHOLOGY | [address] [...] | + + + + + | [facility] | [address] | [place] [address] | | | PATHOLOGY | [address] | | | + + + + + | [facility] | [address] | [place] [address] | | | PATHOLOGY | [address] [...] | + + + + + | [facility] | [address] | [place] [address] | | | PATHOLOGY | [address] | | | + + + + + | [facility] | [address] | [place] [address] | | | PATHOLOGY | [address] [...] view image for the detailed interpretation from [employer] results. | CARDIOLOGY | | | | + + + + + + + + | Performing | Address | City/State/Zipcode | Phone Number | | Organization | | | | + + + + + | [facility] DEPT OF | [address] | [place], [place] | | | CARDIOLOGY | [address] | [address] | | + + + + + | [facility] OF | [address] | [place], [place] | | | CARDIOLOGY | [address] | [address] | | + + + + + documented in this encounter Visit Diagnoses + + | Diagnosis | + + | Other specified pre-operative examination - Primary | + + documented in this encounter
--- OUTSIDE RECORDS SUMMARY | ~2019-02-26 | XMS | Encounter Summary ---
Demographics + + + | Address | [address] | | | [place] [address] | + + + | Home Phone | | + + + | Preferred Language | Unknown | + + + | Marital Status | Single | + + + | Anabaptism Affiliation | Unknown | + + + | Race | Unknown | + + + | Ethnic Group | Unknown | + + + Author + + + | Author | [employer] | + + + | Organization | [facility] | + + + | Address | Unknown | + + + | Phone | Unavailable | + + + Support + + +---------+ + | Name | Relationship | Address | Phone | + + +---------+ + | Kristel Teresa | ECON | Unknown | | + + +---------+ + Care Team Providers + +------+ + | Care Aircraft Maintenance Manager Name | Role | Phone [...] | | [address] | [place] | | | | | [place] | [address] | | | | | [address] | | | | | | [phone] | | | +--------+ + + + [...] [place] | | | | | | [address] | | | | | | | | +--------+---------+ + + + as of this encounter Visit Diagnoses Not on filein this encounter"
--- OUTSIDE RECORDS SUMMARY | ~2019-02-26 | XMS | Encounter Summary ---
Demographics + + + | Address | [address] | | | [place] [address] | + + + | Home Phone [...] Team Providers + +------+ + | Care Deputy Treasurer Name | Role | Phone | + [...] of this encounter Progress Notes Interface, Supervisor Kennel In - 04/28/2005 7:30 PM PDTClinic Date: [...] followup is scheduled today. Lloyd Garcia M.D. Ceramic Plater, Orthopedics and Rehabilitation / [id number] / [id number] / [id number] / [id number] cc: Ninfa Guillen M.D. [address] [place] [address]T[place]ky[place] signed by Interface, Supervisor Kennel In at 04/28/2005 7:3 0 PM PDTdocumented in this encounter Plan of Treatment Not on filedocumented as of this encounter Visit Diagnoses Not on filedocumented in this encounter"
--- OUTSIDE RECORDS SUMMARY | ~2019-02-26 | XMS | Encounter Summary ---
Demographics + + + | Address | [address] | | | [place] [address] | + + + | Home Phone [...] Team Providers + +------+ + | Care Chief Scientist Name | Role | Phone | [...] as of this encounter Progress Notes Interface, Criminal Analyst In - 07/14/2006 1:10 AM PDTCLINIC DATE: [...] and hopefully therapeutic right hip arthrogram with [facility] as soon as possible. She will keep [...] improve her hip pain. Lloyd Garcia M.D. Mercury Cell Cleaner, Orthopedics and Rehabilitation / [id number] / [id number] / [id number] / [id number] cc: Helio Xie M.D. [place], [place] [address]Rowtsfkithkzcq signed by Interface, Criminal Analyst In at 07/14/2006 1:1 0 AM PDTdocumented in this encounter Plan of Treatment Not on filedocumented as of this encounter Visit Diagnoses Not on filedocumented in this encounter"
--- OUTSIDE RECORDS SUMMARY | ~2019-02-26 | XMS | Encounter Summary ---
Demographics + + + | Address | [address] | | | [place] [address] | + + + | Home Phone [...] Author + + + | Author | [facility] | + + + | Organization | [facility] | + + + | [...] Providers + +------+ + | Care Medical Coding Specialist Name | Role | Phone | + +------+ + PCP | Unavailable | + +------+ + Encounter Details +--------+ + + + + | Date | Type | Department | Care Team | Description | +--------+ + + + + | 04/18/ | Office | [facility] | Note, Outpatient | Progress Note | | 1998 | Visit-Trans | MEDICINE | Clinic | [...] as of this encounter Progress Notes Interface, Administrative Director In - 09/15/2006 5:11 AM PSTCLINIC DATE: 04/18/1999 CHIEF COMPLAINT: Right hip pain. HISTORY OF PRESENT ILLNESS: The patient is a 39 year-old female who has had a 3 year history of worsening of right hip pain. She denies any specific trauma to her right hip and states that over the last 3 years has had progressive worsening of right hip pain with limitation of ambulation. She has been using a cane for the last 1 years secondary to pain in her right hip. She has been told she has severe osteoarthritis of her right hip joint but has had no official work up for these findings. 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 She states her right hip bothers her most of the day, worse during the day with activity. She does have pain at night, has trouble going up and down stairs and is only able to ambulate approximately 5 blocks using a cane. She also states she has had long course of low back pain with radiation down her right lower extremity along the posterior aspect of her thigh, medial posterior aspect of her calf, and medial dorsal mid-foot. This comes and goes, is not aggravated by particular activities. PHYSICAL EXAMINATION: Her right hip has flexion to 90 degrees, abduction to 30 degrees, external rotation to 30 degrees, internal rotation to 15 degrees, with all range of motions causing significant tenderness in her right hip. She has weakness in her abductors and flexors. She has no tenderness over her greater trochanteric region. She has mainly groin tenderness to range of motion. Her lower extremity neurologic exam is unremarkable with 5/5 motor and strength in all muscle groups in bilateral lower extremities, normal sensation in all dermatomes. She has normal reflexes, 1+ equal knees and ankles, bilateral lower extremities. Negative Babinski. X-RAYS are reviewed. She had an MRI of her lumbar spine from June 1998, which failed to show any significant pathology. She has had spine films which are unremarkable. Her AP and center pelvis confirms severe degenerative changes to her right hip with osteophyte formation and narrow joint space. ASSESSMENT/PLAN: Patient with advanced osteoarthritis right hip and possible right knee. At this point it is unclear the cause of her osteoarthritis but we would like to pursue further investigations to better understand her process. We would like to offer her a rheumatology consult and further investigate her findings. Kahlil Sarmiento M.D. [facility] Garcia [facility] [email or web address] C: 04/26/99 [facility] cc: Matthew Garcia MD [address] [place], [place] [id number] signed by Interface, Administrative Director In at 09/15/2006 5:11 AM PSTInterface, Administrative Director In - 09/13/2006 3:12 AM PSTCLINIC DATE: 04/18/1999 HISTORY OF PRESENT ILLNESS: Osborn elements of the history is that this is a 39-year-old female with a three-year history of worsening right hip pain, which is felt in the groin, as well as laterally and posteriorly. She requires the use of a cane to ambulate for the past year. REVIEW OF SYSTEMS: This is positive for multiple falls and injuries to the right knee requiring arthroscopic meniscal debridements in 1996 and 1998, with intraoperative findings of articular osteoarthritic changes. The right hip limits her ability to ascend and descend stairs, and she can only ambulate approximately five blocks using a cane. She has also had a long course of low back pain with radiation down her right lower extremity, especially to the posterior aspect of her thigh and buttocks, but it radiates to the posterior calf and the medial dorsal mid foot, as well. PHYSICAL EXAMINATION: Osborn elements of the physical examination are restricted hip range of motion with only 90 degrees of flexion, 30 degrees of abduction and external rotation, and 15 degrees of internal rotation with pain at the extremes of motion, but no point tenderness over the greater trochanter, and mainly groin pain with motion. Neurological examination is intact. IMAGING STUDIES: X-rays include review of a normal-appearing magnetic resonance imaging from June 1998 of the low back. Hip x-rays confirm marginal osteophytes and decreased joint space in the right hip. ASSESSMENT: Advanced right hip degenerative joint disease, with possible confounding radiating pain from the right knee or low back. DISPOSITION: Referral to Rheumatology to further investigate possible etiology for these findings, and to consider an arthroscopically-guided hip injection with local anesthetic and steroid preparation to determine if this relieves her pain. This should be followed by a computed tomography to help delineate the regions of articular cartilage which may in better condition for possible consideration of a periarticular osteotomy, such as a steel pelvic osteotomy or an intertrochanteric osteotomy, to bring better cartilage into the weightbearing region of the hip joint and decrease hip joint forces by increasing the mechanical advantage of the abductor muscles. The patient will return to clinic after these have been obtained for further evaluation and treatment recommendations. Lloyd Garcia M.D., Music Agent, Orthopedics and Rehabilitation [id number] Electronically signed by Bill, Administrative Director In at 1 11/14/2005 3:12 AM PSTdocumented in this encounter Plan of Treatment Not on filedocumented as of this encounter Visit Diagnoses Not on filedocumented in this encounter"
--- OUTSIDE RECORDS SUMMARY | ~2019-02-26 | XMS | Encounter Summary ---
Demographics + + + | Address | [address] | | | [place] [address] | + + + | Home Phone [...] Team Providers + +------+ + | Care Core Machine Tender Name | Role | Phone | + +------+ + | Yuki Pantoja MD | PCP | | + +------+ + Encounter Details +--------+ + + + + | Date | Type | Department | Care Team | Description | +--------+ + + + + | 04/11/ | Telephone | Orthopaedics at | Kalyan Arias MD | | | 2008 | | [facility] [address] | [address] [facility] | | | | | [facility] | [facility] | | | | | Mailcode: [id number] | [place], [place] | | | | | [facility] | [address] | | | | | [place], [place] | [phone] | | | | | [address] | | | | | | [phone] | | | +--------+ + + + [...]
--- OUTSIDE RECORDS SUMMARY | ~2019-02-26 | XMS | Encounter Summary ---
Demographics + + + | Address | [address] | | | [place] [address] | + + + | Home Phone [...] Author + + + | Author | [facility] | + + + | Organization | [facility] | + + + | Address [...] Providers + +------+ + | Care Business Representative Name | Role | Phone | [...] | | | | | and | [address] | [address] | | | | | inflammatory | [address] | [address] | | | | | reaction | [address] | [place], [place] | | | | | due to | [place], [place] | [address] | | | | | unspecified | [address] | Phone: | | | | | device, | Phone: | [phone] | | | | | implant, and | [phone] | Fax: | | | | | graft | Fax: | [phone] | | | | | | [phone] | | +--------+--------+ + + + + Encounter Details +--------+---------+ + + + | Date | Type | Department | Care Team | Description | +--------+---------+ + + + | 11/23/ | Office | Orthopaedics & | Albino Teresa, | Infection and | | 2010 | Visit | Rehabilitation at | MD [address] | inflammatory | | | | [facility] [address] | reaction due to | | | | [address] | [place] [address] | internal joint | | | | Road Mailcode: | [phone] | prosthesis (HCC) | | | | [address] [facility] | | (Primary Dx) | | | | [address] | | | | | | [place], [place] | | | | | | [address] | | | | | | [phone] | | | +--------+---------+ + + + [...] CLINIC FOLLOW UP Referrring Physician: TYRONE COLBY [facility] Orthopedics [address] [place] [address] Primary Care Physician: Carlos S [facility] [place] [address] Ms. Galdamez presents to Infectious Diseases Clinic regarding scheduled follow up. History other than "Interim History" below is directly copied from previous ID notes to maintain continuity: Shelby Galdamez is a 50 y.o. F with a PMHx of asthma, HTN, HLD, R total hip arthoplasty in 11/07 . At the time of her index [...] procedure. Indications : Staphylococcus Aureus Joint Infection [place]-3 Fatty Acids-Vitamin E (FISH OIL) 1,000 mg [...] above discussion. ALBINO TERESA MD INFECTIOUS DISEASES [address] [place] [address] Mailcode: [id number] [address] [address] documented in this e ncounter [...]
--- OUTSIDE RECORDS SUMMARY | ~2019-02-26 | XMS | Encounter Summary ---
Demographics + + + | Address | [address] | | | [place] [address] | + + + | Home Phone [...] + + + | Author | [facility] | + + + | Organization | [facility] | + + + | [...] Team Providers + +------+ + | Care Broaching Machine Set Up Operator Name | Role [...] Lira | | | | | | [facility] | | | | | | Mailcode: [id number] | | | | | | Physician'yokasta Ocampo | | | | | | [place], [place] | | | | | | [address] | | | | | | [phone] | | | +--------+ + + + [...] | AB, IGM | Test performed by [facility] | | | | | | [facility] | | | | | | [facility]. | | | | + + + + + + + + | Specimen | + + | | + + + + + + + | Performing | Address | City/State/Zipcode | Phone Number | | Organization | | | | + + + + + | [facility] | [address] | [place] [address] | | | LABORATORY | | | [...] + + + + + | [facility] | [address] | [place] [address] | | | LABORATORY | | | [...] | + + + + + | [facility] | [address] | [place] [address] | | | LABORATORY | | | [...] | | | | | | by [facility] | | | | | | [facility] | | | | | | [...] | + + + + + | [facility] | [address] | [place] [address] | | | LABORATORY | | | [...] [facility] DEPARTMENT OF | [address] [facility] | [place] [address] | | | PATHOLOGY | [address] | | | + + + + + | [facility] DEPARTMENT OF | [address] [facility] | [place] [address] | | | PATHOLOGY | [address] [...] OF | [address] | [place] [address] | | | PATHOLOGY | [address] | | | + + + + + | [facility] DEPARTMENT OF | [address] | [place] [address] | | | PATHOLOGY | [address] [...] | [facility] DEPARTMENT OF | [facility] [address] | [place] [address] | | | PATHOLOGY | [address] | | | + + + + + | [facility] DEPARTMENT OF | [facility] [address] | [place] [address] | | | PATHOLOGY | [address] [...] [facility] DEPARTMENT OF | [address] [facility] | [place] [address] | | | PATHOLOGY | [address] | | | + + + + + | [facility] DEPARTMENT OF | [address] [facility] | [place] [address] | | | PATHOLOGY | [address] [...] | [facility] DEPARTMENT OF | [address] | [place] [address] | | | PATHOLOGY | [address] | | | + + + + + | [facility] DEPARTMENT OF | [facility] [address] | [place] [address] | | | PATHOLOGY | [address] [...] OF | [address] | [place] [address] | | | PATHOLOGY | [address] | | | + + + + + | [facility] | [address] | [place] [address] | | | PATHOLOGY | [address] [...] | + + + + + | [facility] | [address] | [place] [address] | | | LABORATORY | | | [...] | [facility] | [address] | [place] [address] | | | PATHOLOGY | [address] | | | + + + + + | [facility] | [facility] [address] | [place] [address] | | | PATHOLOGY | [address] [...] OF | [address] | [place] [address] | | | PATHOLOGY | [address] | | | + + + + + | [facility] DEPARTMENT OF | [address] | [place] [address] | | | PATHOLOGY | [address] [...] + + + + | PRODUCT | [id number] | | [facility] | | | UNIT [...] | [facility] | [address] [facility] | [place] [address] | | | PATHOLOGY | [address] | | | + + + + + | [facility] | [address] [facility] | [place] [address] | | | PATHOLOGY | [address] [...] + + + + | PRODUCT | [id number] | | [facility] | | | UNIT [...] [facility] DEPARTMENT OF | [address] [facility] | [place] [address] | | | PATHOLOGY | [address] | | | + + + + + | [facility] DEPARTMENT OF | [address] | [place] [address] | | | PATHOLOGY | [address] [...] | [facility] DEPARTMENT OF | [address] | [place] [address] | | | PATHOLOGY | [address] | | | + + + + + | [facility] DEPARTMENT OF | [address] | [place] [address] | | | PATHOLOGY | [address] [...] + + + | [facility] | [address] | [place] [address] | | | LAB-MICRO | | | [...] + + + | [facility] | [address] | [place] [address] | | | LAB-MICRO | | | [...] | + + + + + | [facility] | [address] | [place] [address] | | | LAB-MICRO | | | | + + + + + documented in this encounter Visit Diagnoses Not on filedocumented in this encounter"
--- OUTSIDE RECORDS SUMMARY | ~2019-02-26 | XMS | Encounter Summary ---
Demographics + + + | Address | [address] | | | [place] [address] | + + + | Home Phone [...] Author + + + | Author | [facility] | + + + | Organization | [facility] | + + + | [...] Team Providers + +------+ + | Care National Stormwater Leader Name | Role | Phone | + +------+ + | Yuki Pantoja MD | PCP | | + +------+ + Encounter Details +--------+ + + + + | Date | Type | Department | Care Team | Description | +--------+ + + + + | 06/21/ | Steam Drier Tender | Orthopaedics at | Kalyan Colby MD | Osteoarthritis of | | 2008 | | [facility] [address] | [address] | Hip (Primary Dx) | | | | [facility] | [address] | | | | | Mailcode: [id number] | [place], [place] | | | | | [facility] | [address] | | | | | [place], [place] | [phone] | | | | | [address] | | | | | | [phone] | | | +--------+ + + + [...] X-RAY HIP 2 | Med Rec No: | | | | | VIEWS | [id number] Name | | | | | RIGHT W/ | : SHELBY GALDAMEZ | | | | | PELVIS 1 | Birthday: | | | | | VIEW | 1960 Sex: | | | | | | F Alias:Patient | | | | | | Location: [id number]: | | | | | | Outpatient | | | | | | [...] # | | | | | | [id number]:PELVIS | | | | | | ONE VIEW WITH RIGHT HIP | | | | | | TWO | | | | | | VIEWS: 07/07/2009 | | | | | [...] | | | | | cerclagewire. There | | | | | | is superior displacement | | | | | [...] | | | | | failure or | | | | | | loosening. Unchangeda | | | | | | ppearance of greater | | | | | | trochanteric plate, | | | | | | screw, and cerclage | | | | | | wirefixation with | | | | | | displaced greater | | | | | [...]
--- OUTSIDE RECORDS SUMMARY | ~2019-02-26 | XMS | Encounter Summary ---
Demographics + + + | Address | [address] | | | [place] [address] | + + + | Home Phone [...] Team Providers + +------+ + | Care Salvage Winder Name | Role | Phone | + [...] | | | | | | | [facility] | | | | | | | Rd [place], | | | | | | | [place] | | | | | | | [address] | | | | | | | Phone: | | | | | | | [phone] | | | | | | | Fax: | | | | | | | [phone] | +--------+--------+ + + + + Encounter Details +--------+---------+ + + + | Date | Type | Department | Care Team | Description | +--------+---------+ + + + | 11/23/ | Office | Orthopaedics at | Tesfaye Saenz | Hip pain, right | | 2010 | Visit | [facility] [address] | [address] | (Primary Dx); | | | | [facility] | | Osteoarthritis of | | | | Mailcode: [id number] | | hip; JUAN DAVID (total hip | | | | [facility] | | arthroplasty) | | | | [place], [place] | | | | | | [address] | | | | | | [phone] | | | +--------+---------+ + + + [...] still well controlled at this point with [place]. She has been wbat and is overall [...]
--- OUTSIDE RECORDS SUMMARY | ~2019-02-26 | XMS | Encounter Summary ---
Demographics + + + | Address | [address] | | | [place] [address] | + + + | Home Phone [...] Team Providers + +------+ + | Care Nurse Chemical Dependency Name | Role | Phone | + +------+ + PCP | Unavailable | + +------+ + Encounter Details +--------+ + + + + | Date | Type | Department | Care Team | Description | +--------+ + + + + | 10/15/ | Office | [facility] | Note, [...] as of this encounter Progress Notes Interface, Traffic Coordinator In - 06/19/2006 1:01 AM PDTCLINIC DATE: 10/15/2001 ORTHOPEDIC CLINIC HISTORY: Ms. Galdamez is a 41-year-old female who is being followed by Dr. Garcia for low back pain, right hip pain, and right knee pain. Dr. Garcia referred her to Dr. Wu for a second opinion regarding indication for a total hip arthroplasty on the right. The patient reports a 5-year history of increasing right hip pain. She notes that over time, she has been forced to be less and less active due to her hip. She is currently using a cane for help with ambulation. She has previously undergone a right hip arthrogram with injection of local anesthetic and steroids. She reports that she had significant improvement of her pain, and this improvement lasted for as long as 3 months. The hip pain returned after this. During that time, she reports that she had an increasing pain in her back. Although her hip pain was completely gone, she was fairly significantly limited by her back pain. She reports that her back and hip pain are equal most of the time. She also reports some knee pain on the lateral aspect of her knee. She has been on and off Vicodin for pain, and she has been on anti-inflammatories intermittently. She was given indomethacin in August 2001. The patient is somewhat frustrated as she has had a difficulty obtaining anti-inflammatories per her report. She is concerned that she feels that people are not listening to her and addressing her concerns. She is currently not working secondary to her pain. She is interested in returning to pain and that is why she is interested in proceeding with the surgery. PAST MEDICAL HISTORY: History of reactive upper airway disease. She also has a history of depression and anxiety attack. PAST SURGICAL HISTORY: Status post hysterectomy, status post exploratory laparotomy, status post appendectomy, status post cholecystectomy, and status post bilateral knee arthroscopy, and she has also undergone surgery on her right finger. MEDICATIONS: Indomethacin. ALLERGIES: None. SOCIAL HISTORY: She lives in [facility], and she is currently not working. She denies alcohol or drug use. She smokes approximately 1 pack of cigarettes a day. FAMILY MEDICAL HISTORY: Significant for history of cancer and sleep apnea. REVIEW OF SYSTEMS: She reports a recent weight gain. She also notes easy fatigability and weakness. She denies any loss of consciousness. She does note depression. She denies difficulty swallowing or hoarseness. She denies high blood pressure or irregular heart beat. She does report occasional shortness of breath as well as swelling in her legs and feet. She notes that she has episodes of nausea and vomiting. She denies any urinary problem. She denies any problems with easy bleeding or bruising. PHYSICAL EXAMINATION: GENERAL: This is a middle-aged female who is moderately obese. She is in no acute distress. She is alert and oriented x 3. MUSCULOSKELETAL: Gait is notable for an antalgic gait with a positive Trendelenburg. She ambulates with a cane. On examination of her right hip, she has a hip range of motion from approximately 5 to 10 degrees to 100 degrees. She has pain at the extremes of hip range of motion. She also has significant pain with internal and external rotation. She has approximately 30 degrees of internal and external rotation. Left hip range of motion is normal with range from 0 to 120 degrees. She has approximately 30 degrees of internal rotation and 45 degrees of external rotation. She has no pain at the extreme of motion. She has full knee flexion and extension. She has no evidence of effusion in her knee. Straight leg raise is negative at 60 degrees. She has 5/5 motor strength for dorsiflexion and plantar flexion. Light touch sensation is intact, distally. Dorsalis pedis pulse is +2. She has a previous small portal site incisions on her right knee, but otherwise her skin is intact. She has no erythema or increased warmth over her right lower extremity. Similarly her left lower extremity, she has no evidence of erythema or warmth. She does not have edema in her lower extremities. DIAGNOSTIC STUDIES: Radiograph: Dr. Wu and I personally reviewed radiographs of her right hip and pelvis. She has end-stage right hip arthritis with loss of joint space especially medially. She also has osteophyte. IMPRESSION: This is a 41-year-old female with right hip degenerative joint disease and low back pain. This patient was seen and evaluated with Dr. Wu. Dr. Wu had a long discussion with this patient regarding her treatment options. He does not feel that she is a candidate for osteotomy. He does feel that she is a candidate for total hip arthroplasty. However, he feels that she should have her back further evaluated prior to proceeding with a hip surgery. He feels that her complaints of back pain are at least as great as her hip pain, hence he would like to know that she would definitely benefit from hip replacement surgery. Dr. Wu plans to discuss his findings with Dr. Garcia and make recommendations for further evaluation of her spine. Ms. Galdamez also indicated that she maybe changing her primary physician as her current physician maybe retiring. If she does this, she was instructed to contact our clinic with the information. We will attempt to setup her appointment for further evaluation of her spine, and we will contact her with the appointment. Her current phone number is [phone]. At this point, we will not schedule her for a followup until we have these other appointments, and then we will have her followup with . Again, we will forward our recommendations to him. Pricilla Metcalf M.D. Kalyan Wu M.D. [facility] / [id number] / [id number] / [id number] / [id number] cc: Lloyd Garcia M.D. [id number] docume nted in this encounter Plan of Treatment Not on filedocumented as of this encounter Visit Diagnoses Not on filedocumented in this encounter"
--- OUTSIDE RECORDS SUMMARY | ~2019-02-26 | XMS | Encounter Summary ---
Demographics + + + | Address | [address] | | | [place] [address] | + + + | Home Phone [...] Team Providers + +------+ + | Care Prototype Engineer Name | Role | Phone | + +------+ + PCP | Unavailable | + +------+ + Encounter Details +--------+ + + + + | Date | Type | Department | Care Team | Description | +--------+ + + + + | 01/31/ | Office | [facility] | Note, [...] as of this encounter Progress Notes Interface, Car Storer In - 08/20/2006 3:01 AM PSTCLINIC DATE: 02/01/2000 OR[facility]IC This is a patient of Dr. Garcia. She calls in regards to getting a refill on her Vicodin, her Valium, her soma, and Flexeril. Per the LCR note, the patient is to go to a primary care for these medications. The patient was told that we were not able to fill them and that she needed to contact her primary care provider. Alpa Ritter LPN / [id number] / [id number] / [id number] / Tdocumented in this encounter Plan of Treatment Not on filedocumented as of this encounter Visit Diagnoses Not on filedocumented in this encounter"
--- OUTSIDE RECORDS SUMMARY | ~2019-02-26 | XMS | Encounter Summary ---
Demographics + + + | Address | [address] | | | [place] [address] | + + + | Home Phone [...] Team Providers + +------+ + | Care Human Resources Director Name | Role | Phone | + +------+ + PCP | Unavailable | + +------+ + Encounter Details +--------+ + + + + | Date | Type | Department | Care Team | Description | +--------+ + + + + | 12/23/ | Results | Orthopaedics at | Gino Baker MD | | | 2006 | Only | [facility] [address] | [address] | | | | | [facility] | [facility], | | | | | Mailcode: PV430 | [place] [address] | | | | | Physician's Terrence | | | | | | [place], [place] | | | | | | [address] | | | | | | [phone] | | | +--------+ + + + [...] COMPARISON: | | | | | | 6 HISTORY: Patient | | | | | | with chronic right hip | | | | | | pain associated with | | | | | | advanceddegenerative | | | | | | joint disease and | | | | | | abundant heterotopic | | | | | | bone around theright | | | | | | hip. | | | | | | PROCEDURE: Procedure | | | | | | alternatives and risks | | | | | | were discussed with | | | | | | thepatient and all | | | | | | questions | | | | | | answered. Informed | | | | | | consent was signed | | | | | | priorto the procedure. | | | | | | Preliminary images of | | | | | | the hip show diffuse | | | | | | joint space narrowing | | | | | | withprominent articular | | | | | | sclerosis and large | | | | | | collar of osteophytes at | | | | | | thebase of the femoral | | | | | | neck. There are also | | | | | | some postoperative | | | | | | [...] | | | | | | adhesive | | | | | | capsulitis. Further | | | | | | [...] | | | | | | 1. Advanced | | | | | | degenerative joint | | | | | | disease of the right hip | | | | | | with | | | | | | adhesivecapsulitis. | | | | | | 2. Near complete | | | | | | relief of patient's | | | | | | right hip pain | | | | [...] | + +---------+ + + | [facility] DEPARTMENT OF | | | | | RADIOLOGY | | | | + +---------+ + + documented in this encounter Visit Diagnoses Not on filedocumented in this encounter"
--- OUTSIDE RECORDS SUMMARY | ~2019-02-26 | XMS | Encounter Summary ---
Demographics + + + | Address | [address] | | | [place] [address] | + + + | Home Phone [...] Team Providers + +------+ + | Care Parks And Recreation Manager Name | Role | Phone | [...] / | | Quintin Mills | [address] | | | | Orthopedics | Osteoarthros | JOSE | [address] | | | | | is, | MEDICAL | [address] | | | | | unspecified | CLINIC PO | Mailcode: | | | | | whether | [address] | [address] | | | | | generalized | [place], [place] | Physician's | | | | | or | [address] | Pavilion | | | | | localized, | | [place], [place] | | | | | pelvic | | [address] | | | | | region and | | Phone: | | | | | thigh | | [phone] | | | | | Intervertebr | | Fax: | | | | | al lumbar | | [phone] | | | | | disc | [...] [address] | [address] [facility] | Hip (Primary Dx) | | | | [facility] | [address] [place], | | | | | Mailcode: PV430 | [place] [address] | | | | | Physician's Pavilion | | | | | | [place], [place] | | | | | | [address] | | | | | | [phone] | | | +--------+---------+ + + + [...]
--- OUTSIDE RECORDS SUMMARY | ~2019-02-26 | XMS | Encounter Summary ---
Demographics + + + | Address | [address] | | | [place] [address] | + + + | Home Phone [...] Author | [facility] | + + + | Organization | [facility] | + + + | Address | Unknown | + + + | Phone | Unavailable | + + + Support + + + + + | Name | Relationship | Address | Phone | + + + + + | Casandra Smith | ROBERTO | [place] | | + + + + + Care Team Providers + +------+ + | Care Marketing Summer Intern Name | Role | Phone | + +------+ + | Yuki Pantoja MD | PCP | | + +------+ + Encounter Details +--------+------+ + + + | Date | Type | Department | Care Team | Description | +--------+------+ + + + | 01/20/ | Lab | Laboratory, | | Hip Pain; | | 2008 | | Specimen Collection | | Hip Replacement | | | | at [facility] 3rd Floor | | | | | | [address] | | | | | | [facility] | | | | | | [place], [place] | | | | | | [address] | | | | | | [phone] | | | +--------+------+ + + + [...] Corrected 01/20/09 11:01: RAHUL CASTAÑEDA, prev report: Slide | [facility] | | review pending. | DEPARTMENT OF | | | PATHOLOGY | + + + + + + + + | Performing | Address | City/State/Zipcode | Phone Number | | Organization | | | | + + + + + | [facility] DEPARTMENT OF | [facility] | [place] [address] | | | PATHOLOGY | [address] | | | + + + + + | [facility] DEPARTMENT OF | [address] [place] [address] | [place] [address] | | | PATHOLOGY | [address] [...] Corrected 01/20/09 11:01: RAHUL CASTAÑEDA, prev report: Slide | [facility] | | review pending. | DEPARTMENT OF | | | PATHOLOGY | + + + + + + + + | Performing | Address | City/State/Zipcode | Phone Number | | Organization | | | | + + + + + | [facility] DEPARTMENT OF | [address] | [place] [address] | | | PATHOLOGY | [address] | | | + + + + + | [facility] DEPARTMENT OF | [address] | [place] [address] | | | PATHOLOGY | [address] [...] [place] DEPARTMENT OF | [address] [facility] | [place] [address] | | | PATHOLOGY | [address] | | | + + + + + | [facility] DEPARTMENT OF | [address] [facility] | [place] [address] | | | PATHOLOGY | [address] [...] + + + + | [facility] | [address] [facility] | [place] [address] | | | PATHOLOGY | [address] | | | + + + + + | [facility] | [address] [facility] | [place] [address] | | | PATHOLOGY | [address] [...] RLB ([facility]) | | | [facility] | | | [address] | | | [place] [address] | | + + + + + + + + | Performing | Address | City/State/Zipcode | Phone Number | | Organization | | | | + + + + + | [facility] | [address] | [place] [address] | | | LABORATORY | | | | + + + + + documented in this encounter Visit Diagnoses + + | Diagnosis | + + | Hip pain Pain in joint, pelvic region and thigh | + + | Hip replacement Hip joint replacement by other means | + + documented in this encounter"
--- OUTSIDE RECORDS SUMMARY | ~2019-02-26 | XMS | Clinical Summary ---
Demographics + + + | Address | [address] | | | [place] [address] | + + + | Home Phone [...] Team Providers + +------+ + | Care Straddle Bug Driver Name | Role | Phone | + +------+ + | Marta Jenkins AUDIOVISUAL PRODUCTION SPECIALIST | PP | | + +------+ + Source Comments LION is fully live on both [facility] Ambulatory and [facility] InPatient.[facility] Allergies + + + + + [...] | | + + + +---------+------+------+-------+ | Custer-3 Fatty | Take by mouth. | | [...] (Flu) | | | | | vaccination (Season | 9 | | | | Ended) | | | | + + + [...] | | | + +--------+ +--------+-------+---------+--------+ | INTELLIGENCE AGENT MEDICAID | INTELLIGENCE AGENT | xxxxxxxx | 06/01/20 | | | [...] gigi | | | 7 (Home) | [address] | + +--------+ +--------+ + + | Shelby Galdamez | Third | Self | [birth year] | | [address] | | | [employer] Party | | 1960 | [phone] | [address] [place] | | | Liabil | | | 7 (Home) | [address] | | | ity | | | | | + +--------+ +--------+ + + Advance Directives + + + + + | Type | Date Recorded | Patient | Explanation | | | | Product Development Manager | | + + + + + | Advance | | | | | Directives and | | | | | Living Will | | | | + + + + + | Power of | | | | | General Activities Therapist | | | | + + + [...]
--- OUTSIDE RECORDS SUMMARY | ~2019-02-26 | XMS | Encounter Summary ---
Demographics + + + | Address | [address] | | | [place] [address] | + + + | Home Phone [...] Author + + + | Author | [facility] | + + + | Organization | [facility] | + + + | [...] Team Providers + +------+ + | Care Ld Teacher Name | Role | Phone | [...] as of this encounter Progress Notes Interface, Blow Down Helper In - 08/22/2006 5:13 AM PSTCLINIC DATE: [...] Valium. PHYSICAL EXAMINATION: She ambulates with a izeigsrb-qj-mivrfe leg coxalgic gait leaning over the right [...] that they are appropriate. Lloyd Garcia MD Ski Base Trimmer Department of Orthopaedics / [id number] / [id number] / [id number] / 27578 C: 01/19/2000 jerman cc: Helio Noland MD [place], [place] [address] [place] [address] [id number] signed by Interface, Blow Down Helper In at 08/22/2006 5:13 AM PSTdocumented in this encounter Plan of Treatment Not on filedocumented as of this encounter Visit Diagnoses Not on filedocumented in this encounter"
--- OUTSIDE RECORDS SUMMARY | ~2019-02-26 | XMS | Encounter Summary ---
Demographics + + + | Address | [address] | | | [place] [address] | + + + | Home Phone [...] Team Providers + +------+ + | Care Creative Perfumer Name | Role | Phone | + [...] [address] | | | | | [facility] | [facility], | | | | | Mailcode: PV430 | [place] [address] | | | | | Physician's Terrence | | | | | | [place], [place] | | | | | | [address] | | | | | | [phone] | | | +--------+ + + + [...] | | | | | | 11/23/05 | | | | | | COMPARISON: Pelvis | | | | | | radiograph on 11/07/05 | | | | | | HISTORY: Healed right | | | | | | proximal femoral | | | | | | osteomyelitis. Persis | | | | | | tingright hip | | | | | | pain. Evaluate for | | | | | | septic joint. | | | | | | PROCEDURE:The benefits | | | | | | and risks of the | | | | | | procedure were explained | | | | | | to thepatient and all | | | | | | questions were | | | | | | answered. Written | | | | | | informed consentwas | | | | | | obtained. The patient | | | | | | was placed supine on | | | | | | the fluoroscopytable and | | | | | | the skin was prepped | | | | | | and draped in the usual | | | [...] | | | | | | aspirated. Approximat | | | | | | gianna 5 ML of omnipaque | | | | | | 300 was theninjected to | | | | | | confirm [...] | | | | | | andosteomyelitis. Het | | | | | | erotopic ossification | | | | | | proximal to the | | | | | | rightfemur is | | | | | [...] | | | | | | adhesivecapsulitis. C | | | | | | ontrast filled a small | | | | | | cyst along the | | | | [...] | | | | | saline. Specimens | | | | | | were sent to the | | | | | | laboratory | | | | | | forevaluation. | | | | | | 2. Adhesive | | | | | | [...] | | | Addendum # 1 by Trinity. | | | | | | Vikash [...] | | | | | | 11/23/05 | | | | | | COMPARISON: Pelvis | | | | | | radiograph on 11/07/05 | | | | | | HISTORY: Healed right | | | | | | proximal femoral | | | | | | osteomyelitis. Persis | | | | | | tingright hip | | | | | | pain. Evaluate for | | | | | | septic joint. | | | | | | PROCEDURE:The benefits | | | | | | and risks of the | | | | | | procedure were explained | | | | | | to thepatient and all | | | | | | questions were | | | | | | answered. Written | | | | | | informed consentwas | | | | | | obtained. The patient | | | | | | was placed supine on | | | | | | the fluoroscopytable and | | | | | | the skin was prepped | | | | | | and draped in the usual | | | [...] | | | | | | aspirated. Approximat | | | | | | gianna 5 ML of omnipaque | | | | | | 300 was theninjected to | | | | | | confirm [...] | | | | | | andosteomyelitis. Het | | | | | | erotopic ossification | | | | | | proximal to the | | | | | | rightfemur is | | | | | [...] | | | | | | adhesivecapsulitis. C | | | | | | ontrast filled a small | | | | | | cyst along the | | | | [...] | | | | | saline. Specimens | | | | | | were sent to the | | | | | | laboratory | | | | | | forevaluation. | | | | | | 2. Adhesive | | | | | | [...]
--- OUTSIDE RECORDS SUMMARY | ~2019-02-26 | XMS | Encounter Summary ---
Demographics + + + | Address | [address] | | | [place] [address] | + + + | Home Phone [...] Team Providers + +------+ + | Care Stile Ripsaw Operator Name | Role | Phone | + +------+ + PCP | Unavailable | + +------+ + Encounter Details +--------+ + + + + | Date | Type | Department | Care Team | Description | +--------+ + + + + | 10/30/ | Results | Orthopaedics at | Benson Cooper MD | | | 1999 | Only | [facility] [address] | [address] [place] | | | | | [facility] | [address] [place], [place] | | | | | Mailcode: PV430 | [address] | | | | | Physician's Terrence | | | | | | [place], [place] | | | | | | [address] | | | | | | [phone] | | | +--------+ + + + [...] 10/30/99 | | | | | | [id number] hours. | | | | | | Dictated 11/01/99. | | | | | | FINDINGS: There is a | | | | | | shallow right rotatory | | | | | | lumbar | | | | | | convexity. [id number] | | | | | | S1 flexion and extension | | | | | | range of motion is | | | | | | 44-degrees. Thelumbar | | | | | | vertebral alignment is | | | | | | maintained in both | | | | | | positions. There | | | | | | ismoderate anterior | | | | | | wedge deformity of the | | | | | | T11 superior end plate | | | | | | with alarge central | | | | | | Schmorl's node. There | | | | | | is an anterior/superior | | | | | | smallSchmorl's node at | | | | | | L1. Mild anterior | | | | | | disc marginal spurring | | | | | | is seen atthe | | | | | | thoracolumbar junction | | | | | | and in the upper lumbar | | | | | | spine. Vertebralbody | | | | | | and disc heights are | | | | | | within normal | | | | | | limits. There | | | | | | arecholecystectomy clips | | | | | | in the right upper | | | | | | quadrant. IMPRESSION: | | | | | | 1. Multilevel mild | | | | | [...] | | | Schmorl's node at L1. | | | | | | 3. Normal flexion and | | | | [...] | + +---------+ + + | [facility] DEPARTMENT OF | | | | | RADIOLOGY | | | | + +---------+ + + documented in this encounter Visit Diagnoses Not on filedocumented in this encounter"
--- OUTSIDE RECORDS SUMMARY | ~2019-02-26 | XMS | Encounter Summary ---
Demographics + + + | Address | [address] | | | [place] [address] | + + + | Home Phone [...] Providers + +------+ + | Care Machine Lay Out Worker Name | Role | Phone | [...] as of this encounter Progress Notes Interface, Turf Sales Person In - 04/28/2005 8:48 PM PDTClinic Date: [...] well but presented to the ER in May approximately a week and half ago with [...] up with her primary care doctor in May and return to clinic and see me on an as-needed basis only. Lloyd Garcia M.D. Inverted Block Operator, Orthopedics and Rehabilitation / [id number] / [id number] / [id number] / 65636 cc: Dr. Pearce [facility] [address] [place] [address] Rinaldi M.D. [address] [place] [address], [place] [id number] signed by Interface, Turf Sales Person In at 04/28/2005 8:4 8 PM PDTdocumented in this encounter Plan of Treatment Not on filedocumented as of this encounter Visit Diagnoses Not on filedocumented in this encounter"
--- OUTSIDE RECORDS SUMMARY | ~2019-02-26 | XMS | Encounter Summary ---
Demographics + + + | Address | [address] | | | [place] [address] | + + + | Home Phone [...] Team Providers + +------+ + | Care Administrative Library Assistant Name | Role | Phone | [...] | Transcriptions | + + | Interface, Burlap Man In - 09/19/2005 9:05 PM PST Date: | | 10/08/2003Attending Surgeon: Marguerite Araujo M.D.Regulatory Affairs Strategy Specialist(s): | | Stas Menjivar M.D.Preoperative Diagnosis(es):Right hip [...] recoveryroom in stable condition.Marguerite Araujo, | | [facility] / [id number] / [id number] / 54802 / T: 10/08/2003 | |a clean granulating [...] | | | |JEMarcus / SALEEM | |[id number] / [id number] / 42792 / | | | | | + + OPERATION RECORD (10/08/2003) + + | Transcriptions | + + | Interface, Burlap Man In - 09/19/2005 9:05 PM PST Date: | | 10/08/2003Attending Surgeon: Lloyd Garcia M.D.Regulatory Affairs Strategy Specialist(s): | | Benson Boone M.D. Stas Menjivar, [...] | from the OR table to the [facility] with the hipsflexed and abduction pillow in place and | | brought from the Operating Room tothe Recovery Room in stable and satisfactory condition | | having tolerated theprocedure well without apparent complication. All counts were | | reportedcorrect prior to leaving the Operating Room. There were no apparenthypotensive | | episodes or other anesthetic difficulties.Lloyd Garcia M.D.Dietetic Assistant, | | Orthopedics and Rehabilitation / [id number] / [id number] / [id number] / T: | | 10/08/2003 | |tube [...] | | | |Lloyd Garcia M.D. | |Dietetic Assistant, Orthopedics and Rehabilitation | | | | / | |[id number] / [id number] / 33180 / | | | | | + + OPERATION RECORD (10/05/2003) + + | Transcriptions | + + | Interface, Burlap Man In - 09/19/2005 9:05 PM PST Date: | | 10/05/2003Attending Surgeon: Lloyd Garcia M.D.Regulatory Affairs Strategy Specialist(s): | | Benson Boone M.D.Preoperative Diagnosis(es):Right hip [...] | case.Benson Boone M.D.Lloyd Garcia M.D.RT / [id number] / [id number] / [id number] / 01288Y: | | 10/05/2003T: 10/05/2003 | |flap for [...] | | | |RT / HS | |[id number] / [id number] / 64560 / 75026 | | | | | + + documented in this encounter Visit Diagnoses Not on filedocumented in this encounter"
--- OUTSIDE RECORDS SUMMARY | ~2019-02-26 | XMS | Encounter Summary ---
Demographics + + + | Address | [address] | | | [place] [address] | + + + | Home Phone [...] Providers + +------+ + | Care Fire Chief Deputy Name | Role | Phone | + +------+ + | Marta Jenkins TOP COLLAR MAKER | PCP | | + +------+ + Encounter Details +--------+ + + + + | Date | Type | Department | Care Team | Description | +--------+ + + + + | 11/14/ | Ancillary | Registration [address] | Gino Baker MD | | | 2005 | Registratio | [address] | [address] | | | | n | Roxann Cadet Mailcode: | [address] [place], | | | | | [address] [place], [place] | [place] [address] | | | | | [address] | | | | | | [phone] | | | +--------+ + + + [...]
--- OUTSIDE RECORDS SUMMARY | ~2019-02-26 | XMS | Encounter Summary ---
Demographics + + + | Address | [address] | | | [place] [address] | + + + | Home Phone [...] Providers + +------+ + | Care Senior Storage Engineer Name | Role | Phone | [...]
--- OUTSIDE RECORDS SUMMARY | ~2019-02-26 | XMS | Encounter Summary ---
Demographics + + + | Address | [address] | | | [place] [address] | + + + | Home Phone [...] Team Providers + +------+ + | Care Licensing Services Clerk Name | Role | Phone | [...] pain | Tesfaye Evangelista, | [address] | | | | | Hip pain SI | [address] | [address] | | | | | | [address] | [facility] | | | | | (sacroiliac) | [facility] | Road | | | | | joint | Rd | Mailcode: | | | | | inflammation | [place], [place] | [address] [facility] | | | | | ([facility]) | [address] | Hospital | | | | | Procedures | | [place], [place] | | | | | CT INJ | | [address] | | | | | SACROILIAC | | Phone: | | | | | JOINT | | [phone] | | | | | W/NEEDLE | | Fax: | | | | | PLCMT | | [phone] | +--------+--------+ + + + + Reason [...] | | Orthopedic | | Non-[facility] | [facility] | | | | Surgery / | | Epic Dept | Tyrone Barrientos MD | | | | Orthopedics | | | [address] | | | | | | | [facility] | | | | | | | Rd [place], | | | | | | | [place] | | | | | | | [address] | | | | | | | Phone: | | | | | | | [phone] | | | | | | | Fax: | | | | | | | [phone] | +--------+--------+ + + + + Encounter Details +--------+---------+ + + + | Date | Type | Department | Care Team | Description | +--------+---------+ + + + | 02/20/ | Office | Orthopaedics at | Tyrone Colby MD | Back pain; Hip pain; | | 2009 | Visit | [facility] [address] | [address] | SI (sacroiliac) | | | | [facility] [address] | [facility] | joint inflammation | | | | Mailcode: PV430 | [place], [place] | ([facility]) | | | | Physician's Pavilion | [address] | | | | | [place], [place] | [phone] | | | | | [address] | | | | | | [phone] | | | +--------+---------+ + + + [...] and plan of care. TYRONE COLBY MD [facility] ORTHOPAEDICS & [facility]HABILITATION [address] [facility] Mailcode: P[address] [facility] [address] esfaye Saenz PA-C - 02/20/2010 3:15 PM [...] None. | | | | | | Learning Support Aide: Dr. Moss, | | | | | | radiology ct technologist. | | | | | | Lead Athlete: | | | | | | Dr. Roberts, staff | | | | | | radiologist. Technique: | | | | | | Oral and written | | | | | | informed consent was | | | | | | obtained from | | | | | | thepatient. The patient | | | | | | was then positioned | | | | | | prone on the CT | | | | | | table. Ateam pause | | | | | | was performed with the | | | | | | applications support lead. Armature And Rotor Winder | | | | | | imaging wasacquired of | | | | | | the sacroiliac | | | | | | joints. A suitable | | | | | | entry site was markedat | | | | | | the skin posterior to | | | | | | the right sacroiliac | | | | | | joint. The skin | | | | | | wasprepped and draped in | | | | | | the usual sterile | | | | | | fashion. The skin | | | | | | andsuperficial soft | | | | | [...] | | | | a 3 mlsyringe, | | | | | | 0.5 ml of Depo-Medrol | | | | | [...] | | | | Prior to the | | | | | | procedure the patient's | | | | | | pain level | | | | | | was8/10. This reduced | | | | | | to 410 following the | | | | | | procedure. I have | | | | | [...]
--- OUTSIDE RECORDS SUMMARY | ~2019-02-26 | XMS | Encounter Summary ---
Demographics + + + | Address | [address] | | | [place] [address] | + + + | Home Phone [...] Providers + +------+ + | Care Product Craftsman Name | Role | Phone | [...] | 2007 | on | at [facility] [address] | [address] | | | | | [address] | [place], [place] | | | | | [address] | [address] | | | | | [place], | [phone] | | | | | [place] [address] | | | | | | [phone] | | | +--------+ + + + [...]
--- OUTSIDE RECORDS SUMMARY | ~2019-02-26 | XMS | Encounter Summary ---
Demographics + + + | Address | [address] | | | [place] [address] | + + + | Home Phone [...] Author + + + | Author | [facility] | + + + | Organization | [facility] | + + + | [...] Team Providers + +------+ + | Care Integrated Pest Management Technician Name | Role | Phone [...] | | 2008 | | [facility] [address] | [address] | | | | | [facility] | [facility] | | | | | Mailcode: [address] | [place], [place] | | | | | Physician's [address]o | [address] | | | | | [facility] [place] | [phone] | | | | | [address] | | | | | | [phone] | | | +--------+ + + + [...]
--- OUTSIDE RECORDS SUMMARY | ~2019-02-26 | XMS | Encounter Summary ---
Demographics + + + | Address | [address] | | | [place] [address] | + + + | Home Phone [...] [facility] | | | | | | [address] | | | | | | [facility] | | | | | | Mailcode: PV450 | | | | | | [address] | | | | | | [place], [place] | | | | | | [address] | | | | | | [phone] | | | +--------+ + + + [...] | | | | | VIEWS | [id number] Name | | | | | RIGHT W/ | : SHELBY GALDAMEZ C | | | | | PELVIS 1 | Birthday: | | | | | VIEW | 1960 Sex: | | | | | | F Alias:Patient | | | | | | Location: [id number]: | | | | | | Outpatient | | | | | | ActiveOrdering | | | | | | Physician: TYRONE | | | | | | COLBY,GHIPELR1 HIP 2 | | | | | | VIEWS RIGHT W/ PELVIS 1 | | | | | | VIEW completed on | | | | | | 07/07/200912:17 | | | | | | PMAccession # | | | | | | [id number]:PELVIS | | | | | | ONE [...]
--- OUTSIDE RECORDS SUMMARY | ~2019-02-26 | XMS | Encounter Summary ---
Demographics + + + | Address | [address] | | | [place] [address] | + + + | Home Phone [...] Team Providers + +------+ + | Care Statement Clerk Name | Role | Phone | [...] Other | | 2007 | | [facility] [address] | [address] | | | | | [facility] | [facility] | | | | | Mailcode: PV430 | [facility] [place] | | | | | [facility] | [address] | | | | | [place], [place] | [phone] | | | | | [address] | | | | | | [phone] | | | +--------+ + + + [...]
--- OUTSIDE RECORDS SUMMARY | ~2019-02-26 | XMS | Encounter Summary ---
Demographics + + + | Address | [address] | | | [place] [address] | + + + | Home Phone [...] Author | [facility] | + + + | Organization | [facility] | + + + | Address | Unknown | + + + | Phone | Unavailable | + + + Support + + + + + | Name | Relationship | Address | Phone | + + + + + | Casandra Smith | ROBERTO | [place] | | + + + + + Care Team Providers + +------+ + | Care Store Detective Name | Role | Phone | + [...] TARUN Bergman | | | | | [facility] | [facility], | | | | | Mailcode: PV430 | [place] [address] | | | | | [facility] | | | | | | [place], [place] | | | | | | [address] | | | | | | [phone] | | | +--------+ + + + [...]
--- OUTSIDE RECORDS SUMMARY | ~2019-02-26 | XMS | Encounter Summary ---
Demographics + + + | Address | [address] | | | [place] [address] | + + + | Home Phone [...] Author + + + | Author | [facility] | + + + | Organization | [facility] | + + + | Address [...] Providers + +------+ + | Care Revenue Director Name | Role | Phone | [...] Closed | | Cardiology | Procedures | Linda, | Car Echo | | | | | | Karen E, ADMINISTRATIVE ASST | [facility] [address] | | | | | TRANSTHORACI | [address] | [address] | | | | | C | [address] | [facility] | | | | | ECHOCARDIOGR | Rd | Mailcode: | | | | | AM, ADULT | [place], [place] | [address] | | | | | | [address] | [address] | | | | | | | Building | | | | | | | [place], [place] | | | | | | | [address] | | | | | | | Phone: | | | | | | | [phone] | +--------+--------+ + + + + Diagnostic Testing (Urgent) +--------+--------+ + + + + | Status | Reason | Specialty | Diagnoses / | Referred By | Referred To | | | | | Procedures | Contact | Contact | +--------+--------+ + + + + | Closed | | Cardiology | Procedures | Linda, | Car Echo | | | | | | Karen E, ADMINISTRATIVE ASST | [facility] [address] | | | | | TRANSTHORACI | [address] | [address] | | | | | C | [address] | [facility] | | | | | ECHOCARDIOGR | Rd | Mailcode: | | | | | AM, ADULT | [place], [place] | [address] | | | | | | [address] | [address] | | | | | | | Building | | | | | | | [place], [place] | | | | | | | [address] | | | | | | | Phone: | | | | | | | [phone] | +--------+--------+ + + + + Diagnostic Testing (Urgent) +--------+--------+ + + + + | Status | Reason | Specialty | Diagnoses / | Referred By | Referred To | | | | | Procedures | Contact | Contact | +--------+--------+ + + + + | Closed | | Radiology | Procedures | Linda | [facility] | | | | | X-RAY | Karen Del Rosario NP | [address] | | | | | ASPIRATION | [address] | [address] | | | | | [place] INJECTION | [facility] | Mailcode: | | | | | [address] | Rd | [facility] | | | | | W/NEEDLE | [place], [place] | for Health | | | | | PLCMT | [address] | and Healing, | | | | | | | 3rd Floor | | | | | | | [place], [place] | | | | | | | [address] | | | | | | | Phone: | | | | | | | [phone] | | | | | | | Fax: | | | | | | | [phone] | +--------+--------+ + + + + Diagnostic [...] | | | X-RAY | Karen E, ADMINISTRATIVE ASST | [address] | | | | | ASPIRATION | [address] | [address] | | | | | [place] INJECTION | [facility] | Mailcode: | | | | | [address] | Rd | [facility] | | | | | W/NEEDLE | [facility] [place] | for Health | | | | | PLCMT | [address] | and Healing, | | | | | | | 3rd Floor | | | | | | | [place], [place] | | | | | | | [address] | | | | | | | Phone: | | | | | | | [phone] | | | | | | | Fax: | | | | | | | [phone] | +--------+--------+ + + + + Reason [...] | | | | | | | [address] | | | | | | [address] | | | | | | | [facility] | | | | | | | HOSPITAL | | | | | | | [place], [place] | | | | | | | [address] Phone: | | | | | | | [phone] | +--------+--------+ + + + + Encounter Details +--------+ + + + + | Date | Type | Department | Care Team | Description | +--------+ + + + + | 10/12/ | Hospital | [facility] [address] | [place], | | | 2010 - | Encounter | [address] | MD Benson [address] | | | | | 2SE/[id number] | [address] | | | 10/23/ | | PAVILION (MNP/OLD | [place], [place] | | | 2010 | | [facility]) [place], [place] | [address] | | | | | [address] | [phone] | | | | | | | | | | | | Jillian Bee MD | | | | | | [address] | | | | | | [facility], | | | | | | [place] [address] | | | | | | [phone] | | | | | | | | | | | | Tisha Figueroa FNP | | | | | | [address] | | | | | | [facility], | | | | | | [place] [address] | | | | | | [phone] | | | | | | | | | | | | Rustam Duenas MD | | | | | | [address] | | | | | | [facility], | | | | | | [place] [address] | | | | | | [phone] | | | | | | | | | | | | Benson Cooper MD | | | | | | [address] [place] | | | | | | [address] [place], [place] | | | | | | [address] | | | | | | | | | | | | Kalyan Arias MD | | | | | | [address] | | | | | | [place], | | | | | | [place] [address] | | | | | | [phone] | | | | | | | [...] might be different f rom the original. [facility]ATION [facility]IENT HOSPITAL DISCHARGE SUMMARY & INTERDISCIPLINARY INSTRUCTIONS Patient: Chastity Galdamez CSN: [id number] Admission Date: 10/12/2010 Discharge Date: 10/22/2010 Attending Physician: Kalyan Arias MD PCP: Travis Cruz MD Service: [facility] Orthopaedics & Rehabilitation Diagnoses Principal Final Diagnosis: [...] WBAT Discharge POLST completed No Destination: Destination: [facility] Condition on Discharge Good Discharge Follow Up Provider and Clinic: Tesfaye Saenz, Orthopaedic Surgery . Appointment: Please call clinic to make appointment for 2 weeks after your surgery for sut ure/staple removal and wound check. Call [phone] to arrange appointment date and time. Outpatient antibiotics: [facility] referral has been made (for outpatient antibiotics). -While on outpatient antibiotics, weekly CBC/diff, CMP, ESR, & CRP should be checked, with results faxed to Dr. Teresa or Elvia SPENCE at [facility] clinic (fax #[phone]). Current Discharge Medication List START taking these [...] hours. Medication to be admixed per infusion [facility] standard policy and/or procedure. Indications: Staphylococcus Aureus [...] W-FE,OTHER MIN (CENTRUM ORAL) Take by mouth. [place]-3 Fatty Acids-Vitamin E (FISH OIL) 1,000 mg [...] administration instructions. - Call orthopedic clinic at [phone] if any persistent, localized swelling that does [...] and ask for the orthopaedic surgery resident collection advisor. Additional postop instructions/ What to expect: -Apply [...] feel that you will need more, call [phone] during business hours in order to get a new prescription. Please allow 48 hours for re fills to be processed. - Schedule II narcotics can NOT be called in to a pharmacy. Please arrange for someone to pharmacy picking technician your prescription or allow additional time for [...] 2 weeks (or as previously scheduled). Call [phone] to confirm or schedul e this appointment. [...] Condition on Discharge: Improved Discharging Patient To: [facility] Facility Date and Time of Discharge Summary [...] + + + +---------+ + + | [place]-3 Fatty | Take by mouth. | | [...] 11 Date: 10/23/2010 Patient: CHASTITY Osei TALLY [id number] Interval Hx: Afebrile. Wants to go home. [...] f axed to Dr. Teresa or Elvia Putnam PA at [facility] clinic (fax #[phone]). -Dispo plan: pt requires 3 days of flagyl treatment for C. Diff before discharge to [facility] facility. D/C to [facility] facility today Samuel Montaño MD - 10/22/2010 7:24 AM PST Ortho Progress Note Hospital Day: 10 Date: 10/22/2010 Author: SAMUEL BOWEN MD Patient: CHASTITY Osei TALLY [id number] Interval Hx: Afebrile. WBC up yesterday and [...] Net 3060 ml LABS: Recent Labs Basename 10/22/1040710/21/104 10/20/10 0644 NA 139 134 135 K 3.8 3.7 4.1 CL 103 100 98 BICARB 32* 29 30* BUN 5* 9 11 CR 0.62 0.57* 0.65 GLU 190* 206* 131* CA 8.6 8.4* 8.5* MG -- -- -- PO4 -- -- -- Recent Labs Basename 10/22/1040710/21/104 10/20/10 0644 WBC 15.1* 15.1* 12.6* HB 10.7* [...] Dr. Teresa or Elvia Putnam PA at [facility] clinic (fax #[phone]). -Dispo plan: pt requires 3 days of flagyl treatment for C. Diff before discharge to [facility] ed nursing facility. Possible D/C to [facility] facility today oster, Samuel Evangelista MD - 10/21/2010 7:16 AM PST Ortho Progress Note Hospital Day: 9 Date: 10/21/2010 Author: SAMUEL BOWEN MD Patient: CHASTITY Osei TALLY [id number] Interval Hx: Afebrile overnight. Comfortable and without [...] Intake/Output Summary (Last 24 hours) at 10/21/10 07 Last data filed at 10/21/10 0606 Gross [...] PO4 -- -- -- Recent Labs Basename 10/21/10 0344 10/20/10 0644 10/20/10 0332 WBC 15.1* 12.6* 13.7* [...] to Dr. Teresa or Elvia SPENCE at [facility] clinic (fax #[phone]). -Dispo plan: pt requires 3 days of flagyl treatment for C. Diff before discharge to [facility] nursing facility. Plan to D/C to [facility] facility on Saturday10/22/10. Lucero Petersen M D [...] kg/(m^2)FIO2 (%): 30 fraction of O2 (10/14/10 2335)O2 Delivery Device: None (room air) (10/20/10 0739) Intake/Output Summary (Last 24 hours) at 10/20/10 [...] (pt does not want insulin coverage) (10/18/10 3877) Labs: HEMOGLOBIN A1C (%) Date Value 10/17/2010 [...] care for this patient. LUCERO KNOX MD [address] Clinical Hospitalist Service [facility] [place] EPIC DEPARTMENT: Hosp ([facility])- [phone] Place of Service: IP - [id number] [facility] [id number] CPT: 72204 Subsequent Visit Exp Prob Foc/Mod Complexity 25 min I spent 25 minutes nrbg-rs-ayhl with this patient of which greater than [...] patient is discharged. Please notify [facility] clinic [id number] re: discharge date, where patient is going (i.e. home, SNF ) and home IV provider if applicable. [facility] Department of Infectious Disease Outpatient IV Antibiotic Therapy Clinic ([facility]) Pager ID: [phone] Mail Code J839 [place] [address] [facility] teaching note: Education and training for [...] PCP . I gave the patient my [facility] business card, and let them know that our clinical asst, Tonja Keller, will be contacting them after discharge [...] from antibiotics occur, we will ask the [facility] agency to alter the dose of antibiotics, or even change the antibiotics. I expla ined that we will communicate patient's progress and plan with PCP, surgeon, and the home in [place]. I reviewed the possible complications PICC lines [...] care. I provided the patient with the [facility] welcome letter that reiterates the above teaching. I spent 25 minutes in education and training in patient self management for IV antibiotic a nd PICC line use with greater than 50% spent on counseling and/or coordination of care. [facility] DEPARTMENT: IDC INFECT DIS CONSULT - [phone] Place of Service: Inpatient Date of Service: 10/20/2010 CSN: [id number] Suggested Level of Care: 67384- Subsequent hosp care, 25 min Javier Bunn [...] Intake/Output Summary (Last 24 hours) at 10/20/10 06 Last data filed at 10/20/10 0611 Gross [...] to Dr. Teresa or Elvia SPENCE at [facility] clinic (fax #[phone]). -Please ensure there is a baseline CBC, CMP, ESR, and CRP prior to discharge.--ordered tod ay -Dispo plan: pt requires 3 days of flagyl treatment for C. Diff before discharge to [facility]. Plan to D/C to [facility] facility on Saturday10/22/10. Lucero Petersen MD - [...] Prophylaxis: Per primary team. LUCERO KNOX MD [employer] Coordinatormop handle assembler Clinical Hospitalist Service Division of Hospital Medicine Department of Medicine [facility] DEPARTMENT: Hosp ([facility])- [phone] Place of Service: - Modifiers:GC Resident Involved: No CPT: 60194 Subsequent Visit Exp Prob Foc/Mod Complexity 25 min I spent 25 minutes gust-sc-xvvd with this patient of which greater than [...] Intake/Output Summary (Last 24 hours) at 10/19/10 0637 Last data filed at 10/19/10 0422 Gross [...] hours (or 3 results) Recent Labs Basename 10/18/10725 WBC 12.0* HB 11.3* HCT 34.2* PLT 526* NEUTROPERC 73* BANDPCT -- LYMPHPERC 18 MONOPERC 7 BASOPERC 1 EOSPERC 2 No Data Recorded LastCBG CBG Result : 150 (10/18/10735) CBG Intervention: Other (Comment) (pt does not want insulin coverage) (10/18/10735) Lab Results Component Value Date INR 1.07 [...] large skin folds. Continue routine hygiene and topical nystatin powder. # DVT Prophylaxis: Per primary team. LUCERO KNOX MD [employer] Coordinatormop handle assembler Clinical Hospitalist Service Division of Hospital Medicine Department of Medicine [facility] DEPARTMENT: Hosp ([facility])- [phone] Place of Service: IP - [id number] Modifiers:DANNA Resident Involved: No CPT: 06005 Subsequent Visit Exp Prob Foc/Mod Complexity 25 min I spent 25 minutes nsyu-rf-uwuc with this patient of which greater than [...] 3 results) LastCBG CBG Result : 131 (10/16/102) CBG Intervention: (Pt refused CBG) (10/17/10 0819) [...] as well as aspirate LUCERO KNOX MD [employer] Coordinatormop handle assembler Clinical Hospitalist Service Division of Hospital Medicine Department of Medicine [facility] DEPARTMENT: [facility] ([facility])- [phone] Place of Service: [facility] [id number] Modifiers:GC Resident Involved: No CPT: 04791 Subsequent Visit Detailed/High complexity 35 min I spent 40 minutes ovae-sl-jkbr with this patient of which greater than [...] Cohen MD - 10/16/2010 9:36 PM PST [facility] ORTHOPAEDIC SURGERY POST OPERATIVE CHECK IDENTIFICATION: Patient: [...] consult. [facility] BLE xrays Jillian Farfan MD [facility] Department of Orthopaedics & Rehabilitation [address] [place] [address] Mail Code: OP31 [facility] [address] [email or web address] Pager: [phone] The above was formulated both independently and [...] 10/16/2010 GLU 129* 10/15/2010 GLU 107* 10/15/2010 Microbiology:CULTURE RESULT (no units) Date Value 10/14/2010 Blood [...] immobile. Wearing Priscilla Hose. DAVID KNIGHT MD [facility] 6A [employer] Coordinatormop handle assembler Clinical Hospitalist Service [facility] EPIC DEPARTMENT: Hosp ([facility])- [phone] Place of Service: IP - [address] [facility] [id number] Modifiers:GC Resident Involved: No Service: Ortho Suggested CPT: 17941 Subsequent Visit Exp Prob Foc/Mod Complexity 25 min I spent more than 30 minutes ijpf-zu-waof with the patient of which greater than 50% was sp ent co-ordinating care Julius, David Evangelista MD - 10/15/2010 7:57 AM PST CLINICAL HOSPITALIST SERVICE ([facility])-PROGRESS NOTE HOSPITAL DAY: 3 Author: DAVID [...] 10/14/2010 GLU 150* 10/14/2010 GLU 89 09/09/2008 Microbiology:CULTURE RESULT (no units) Date Value 10/13/2010 Joint [...] she is quite immobile. DAVID KNIGHT MD [address] [employer] Coordinatormop handle assembler Clinical Hospitalist Service [facility] EPIC DEPARTMENT: Hosp ([facility])- [phone] Place of Service: IP - [address] [facility] [phone] Modifiers:GC Resident Involved: No Service: Primary Suggested CPT: 11427 Subsequent Visit Detailed/High complexity 35 min I spent more than 35 minutes anig-bg-uoev with the patient of which greater than [...] - Radiology: reviewed - Dispo: pending workup YRaymond Rosado - 10/14/2010 12:05 PM PSTTransthoracic echocardiogram completed. [...] + + + | IP CONSULT TO [facility] | Routin | 10/19/2010 | | Results [...] | + + | Beatriz Beckett - 10/27/2010 8:38 AM PST | | [...] [facility] | [address] | [place], [place] | | | THERAPY | [address] | [address] | | + + + + + [...] 06:42: RAHUL COMMENTS, prev report: Slide | [facility] | | review pending. | DEPARTMENT OF | | | PATHOLOGY | + + + + + + + + | Performing | Address | City/State/Zipcode | Phone Number | | Organization | | | | + + + + + | [facility] DEPARTMENT OF | [address] | [place] [address] | | | PATHOLOGY | [address] [...] + + + + | [facility] | [address] | [place] [address] | | | PATHOLOGY | [address] [...] 06:42: RAHUL COMMENTS, prev report: Slide | [facility] | | review pending. | DEPARTMENT OF | | | PATHOLOGY | + + + + + + + + | Performing | Address | City/State/Zipcode | Phone Number | | Organization | | | | + + + + + | [facility] DEPARTMENT OF | [address] | [place] [address] | | | PATHOLOGY | [address] [...] [facility] | [address] | [place], [place] | | | THERAPY | [address] | [address] | | + + + + + [...] [facility] | [address] | [place], [place] | | | SUPRIYA POINT OF CARE | [address] | [address] | | | TESTS | | | [...] DEPARTMENT OF | [address] | [place] [address] | | | PATHOLOGY | [address] [...] + + + + | [facility] | [address] | [place] [address] | | | PATHOLOGY | [address] [...] + + + + + | [facility] DEPARTMENT OF | [address] | [place] [address] | | | PATHOLOGY | [address] [...] [facility] | [address] | [place], [place] | | | THERAPY | [address] | [address] | | + + + + + [...] + + + + + + | MEERAO # | 0.0 | <0.3 | [facility] [...] + + + + | [facility] | [address] | [place] [address] | | | PATHOLOGY | [address] [...] DEPARTMENT OF | [address] | [place] [address] | | | PATHOLOGY | [address] [...] 05:44: RAHUL COMMENTS, prev report: Slide | [facility] | | review pending. | DEPARTMENT OF | | | PATHOLOGY | + + + + + + + + | Performing | Address | City/State/Zipcode | Phone Number | | Organization | | | | + + + + + | [facility] | [address] | [place] [address] | | | PATHOLOGY | [address] [...] Bunch, | | | | | | MAGNETIC DOCTOR | | | | | | | [...] + | [facility] | [address] | [place], [place] | | | THERAPY | [facility] | [address] | | + + + + + [...] | | | | | | by: Angelorazia Bunch RCP | | | | | [...] + + + + + | [facility] | [address] | [place], [place] | | | THERAPY | [address] | [address] | | + + + + + [...] | | | | | | by: Angeol Bunch RCP | | | | | [...] [facility] | [address] | [place], [place] | | | THERAPY | [address] | [address] | | + + + + + [...] [facility] | | [facility] ([facility]) | REGIONAL | | [facility] | LABORATORY | | [address] | | | [place] [address] | | + + + + + + + + | Performing | Address | City/State/Zipcode | Phone Number | | Organization | | | | + + + + + | [facility] | [address] | [place] [address] | | | LABORATORY | | | [...] + + + + | [facility] | [address] | [place] [address] | | | PATHOLOGY | [address] [...] + + + + | [facility] | [address] | [place] [address] | | | PATHOLOGY | [address] [...] [facility] DEPARTMENT OF | [address] | [place] [address] | | | PATHOLOGY | [address] [...] | + + + + + | [facility] | [address] | [place] [address] | | | LABORATORY | | | [...] + + + + | [facility] | [address] | [place] [address] | | | PATHOLOGY | [address] [...] Miles, | | | | | | MAGNETIC DOCTOR | | | | | | | | | | | | | | | | | | | | | | | | | | | | | |Electronically Signed by: Cha Miles MAGNETIC DOCTOR | | | | + + + + +------ --------+ + + | Specimen | + + | | + + + + + + + | Performing | Address | City/State/Zipcode | Phone Number | | Organization | | | | + + + + + | [facility] | [address] | [place], [place] | | | THERAPY | [address] | [address] | | + + + + + [...] + + + + | [facility] | [address] | [place] [address] | | | PATHOLOGY | [address] [...] DEPARTMENT OF | [address] | [place] [address] | | | PATHOLOGY | [address] [...] DEPARTMENT OF | [address] | [place] [address] | | | PATHOLOGY | [address] | | | + + + + + IP CONSULT TO PICC TEAM (10/19/2010 10:48 AM PST) + + + [...] 10/19/2010 Start Time: 1000 Patient Location (Unit/Room | | | #): 10A Diagnosis: wound infection Indications: (Select all that | | | apply) Antibiotics Allergies: Allergies Allergen Reactions | | [...] Long 1cm Trimmed Lot # (or Sticker): [id number] INSERTION SITE: | | | - Cephalic [...] Tip location: Picc tip at the caval | | | atrial junction verified by CXR Placed by: Anabella Ramirez RN IVT | | | [id number] Assisted by: jose | | + + + + + | Procedure Note | + + | Anabella Ramirez RN - 10/19/2010 10:14 AM PST Formatting of [...] field maintained at all times.PICC CATHETERProduct Name: GroongConstruction: | | Single4 Fr60cm Qcld6ce TrimmedLot # (or Sticker): [id number] SITE: - | | CephalicLeftLocal anesthetic used: [...] by CXRPlaced by: Anabella Ramirez RN IVT [id number] | | by: jose | |PICC CATHETER | |Product Name: Boogie | |Construction: Single | |4 Fr | |60cm Long | |1cm Trimmed | |Lot # (or Sticker): [id number] | | | |INSERTION SITE: - Cephalic [...] | |Placed [place]: [place] [id number] | |Assisted by: na | + + X-RAY PORTABLE CHEST 1 VIEW (10/19/2010 10:45 AM PST) + + + + + + | Component | Value | Ref Range | Performed | Pathologist | | | | | At | Signature | + + + + + + | X-RAY | STUDY: GA CHEST 1 VIEW | | | | [...] | | | | | | cavoatrial | | | | | | junction. The lungs | | | | | | are clear. There is | | | | | | nopneumothorax. The | | | | | | cardiomediastinal | | | | | | silhouette is normal. | | | | | | IMPRESSION: 1.Left upper | | | | | | extremity PICC with the | | | | | | tip projecting at the | | | | | | cavoatrialjunction. | | | | | | 2. Clear lungs. I | | | | | | have personally viewed | | | | | | this procedure/exam and | | | | | | reviewed this report. | | | | | | Author: ROBERT | | | | | | RAMA ALANeviewer: | | | | | | ELEAZAR [...] Guardado, | | | | | | MAGNETIC DOCTOR | | | | + + + + + + + + | Specimen | + + | | + + + + + + + | Performing | Address | City/State/Zipcode | Phone Number | | Organization | | | | + + + + + | [facility] | [address] | [place], [place] | | | THERAPY | [address] | [address] | | + + + + + [...] DEPARTMENT OF | [address] | [place] [address] | | | PATHOLOGY | [address] [...] + + + + | [facility] | [address] | [place] [address] | | | PATHOLOGY | [address] [...] + + + + | [facility] | [address] | [place] [address] | | | PATHOLOGY | [address] [...] | | Signed by: Elaine | | THERAPY | | | | Denise, | | | | | | | [...] [facility] | [address] | [place], [place] | | | THERAPY | [facility] | [address] | | + + + + + [...] [facility] | [address] | [place], [place] | | | SUPRIYA POINT OF CARE | [address] | [address] | | | TESTS | | | [...] + + | CALLED TO | Shannon Evangelista on 10[address] | | [facility] | | | | [...] + + + + | [facility] | [address] | [place] [address] | | | PATHOLOGY | [address] [...] + + + | [facility] ([address] [facility]) | [facility] | | [facility] [place] [address] | REGIONAL | | [place] [address] | LAB-MICRO | + + + + + + + + | Performing | Address | City/State/Zipcode | Phone Number | | Organization | | | | + + + + + | [facility] | [address] | [place] [address] | | | LAB-MICRO | | | [...] + + + + | [facility] | [address] | [place] [address] | | | PATHOLOGY | [address] [...] [facility] | [address] | [place], [place] | | | JADA EPPS OF CARE | [address] | [address] | | | TESTS | | | [...] [facility] | [address] | [place], [place] | | | SUPRIYA POINT OF [facility] | [address] | [address] | | | TESTS | | | [...] + + + + | [facility] | [address] | [place] [address] | | | PATHOLOGY | [address] [...] DEPARTMENT OF | [address] | [place] [address] | | | PATHOLOGY | [address] [...] [facility] DEPARTMENT | [address] | [place] [address] | | | PATHOLOGY | [address] | | | + + + + + RESP CARE THERAPY (10/18/2010 3:30 AM PST) + + + + +------ --------+ | Component | Value | Ref Range | Performed | Patho logist | | | | | At | Signa davye | + + + + +------ --------+ [...] [facility] | [address] | [place], [place] | | | THERAPY | [address] | [address] | | + + + + + [...] [facility] | [address] | [place], [place] | | | THERAPY | [facility] | [address] | | + + + + + [...] [facility] | [address] | [place], [place] | | | THERAPY | [address] | [address] | | + + + + + [...] | | | | | | in | | | | | | normalalignment. Hard | | | | | | bradley is intact without | | | | | | failure [...] | | | | | | bonesare | | | | | | intact. Postsurgical | | | | | | changes are present | | | | | | within the lateral | | | | | | softtissues. IMPRESSION: | | | | | | Interval retrieval of | | | | | | the right greater | | | | | | trochanteric plate, | | | | | | cerclagewires and screws | | | | | | without apparent | | | | | [...] | | | | | CHUYITA NASH MD | | | | | | STATUS FINAL / Dr. | | | | | | CHUYITA [...] | [facility] | | diabetes: <5.7 Non-diabetic | REGIONAL | | 5.7-6.4 Prediabetes >6.4 | LABORATORY | | Diabetes, if confirmed For monitoring of diabetes control: | | | <7.0 Usual goal of treatment; low risk for | | | complications 7.0-8.0 Some increased risk for | | | long-term complications >8.0 Higher risk of | | | complications; strongly consider | | | intensifying therapy [facility] ([facility]) | | | [facility] [place] [address] [facility] | | | [place] [address] | | + + + + + + + + | Performing | Address | City/State/Zipcode | Phone Number | | Organization | | | | + + + + + | [facility] | [address] [facility] | [place] [address] | | | LABORATORY | | | [...] + + | [facility] | [address] [facility] | [place], [place] | | | THERAPY | [facility] | [address] | | + + + + + [...] [facility] | [address] | [place], [place] | | | THERAPY | [address] | [address] | | + + + + + [...] [facility] | [address] | [place], [place] | | | [facility] | [address] | [address] | | | TESTS | | | [...] [facility] | [address] | [place], [place] | | | [facility] | [address] | [address] | | | TESTS | | | [...] [facility] | [address] | [place], [place] | | | SUPR[facility] PO[facility] OF CARE | [address] | [address] | | | TESTS | | | [...] | | | | | | by: Shahsa Whitmore RCP | | | | + + + + + + + + | Specimen | + + | | + + + + + + + | Performing | Address | City/State/Zipcode | Phone Number | | Organization | | | | + + + + + | [facility] | [address] | [place], [place] | | | THERAPY | [address] | [address] | | + + + + + [...] DEPARTMENT OF | [address] | [place] [address] | | | PATHOLOGY | [address] [...] | CALLED TO | Celine S. on @15:00 on | | [facility] | | | | 10/17/10 PW. | [...] DEPARTMENT OF | [address] | [place] [address] | | | PATHOLOGY | [address] [...] | [facility] | | | | 10/17/10 @15:00 PW. [...] | [facility] DEPARTMENT OF | [address] | [place] [address] | | | PATHOLOGY | [address] [...] CALLED TO | Celine S. on 10A on | | [facility] | [...] DEPARTMENT OF | [address] | [place] [address] | | | PATHOLOGY | [address] [...] CALLED TO | Celine S. on 10A on | | [facility] | [...] + + + + | [facility] | [address] | [place] [address] | | | PATHOLOGY | [address] [...] + + + | [facility] | [address] | [place] [address] | | | LAB-MICRO | | | [...] + + + | [facility] | [address] | [place] [address] | | | LAB-MICRO | | | [...] | | REGIONAL | | | | Source ....: Site 5, | | LAB-MICRO | | | | right hip, surgical, | | | | | | hold for | | | | | | | | | | | | | | | | | | propionibacteriu | | | | | | m | | | | | | Smear..............: [...] [facility] | | | | | | ([facility]) | | | | | | [facility] | | | | | | [address] | | | | | | [address] | | | | | | [place], | | | | | | [place] [address] | | | | + + + + + + + + | Specimen | + + | | + + + + + + + | Performing | Address | City/State/Zipcode | Phone Number | | Organization | | | | + + + + + | [facility] | [address] | [place] [address] | | | LAB-MICRO | | | [...] + + + | [facility] | [address] | [place] [address] | | | LAB-MICRO | | | | + + + + + JANENE, AFB (ALL SPECIMEN TYPES) (10/16/2010 9:50 AM [...] | CULTURE | Acid Fast | | [facility] | | | RESULT | Bacilli Culture | | REGIONAL | | | | | | LAB-MICRO | | | | Source.............: | | | | | | Site 5, right hip, | | | | | | surgical, hold for | | | | | | | | | | | | | | | | | | propionibacteriu | | | | | | m RLB FA | | | | | [...] | | | | | | [facility] | | | | | | ([facility]) | | | | | | [facility] | | | | | | [address] | | | | | | [address] | [address] | | | | [address] | | | | | | | | | | | | [place] [address] | | | | + + + + + + + + | Specimen | + + | | + + + + + + + | Performing | Address | City/State/Zipcode | Phone Number | | Organization | | | | + + + + + | [facility] | [address] | [place] [address] | | | LAB-MICRO | | | [...] + + + | [facility] | [address] | [place] [address] | | | LAB-MICRO | | | [...] | | | | | | | propionibacteriu | | | | | | m RLB Gram | | | | | [...] | | | | | | 1+ | | | | | | [...] for | | | | | | susceptibili | | | | | | ties. No | | | | | | anaerobes isolated | | | | | | No | | | | | | Propionibacterium | | | | | | isolated. Final | | | | | | Report | | | | | | Resulted: / | | | | | | 26/08 | | | | | | [facility] | | | | | | ([facility]) | | | | | | [facility] | | | | | | [address] | | | | | | [address] | [address] | | | | | | [place] | | | | | | , [place] [address] | | | | + + + + + + + + | Specimen | + + | | + + + + + + + | Performing | Address | City/State/Zipcode | Phone Number | | Organization | | | | + + + + + | [facility] | [address] | [place] [address] | | | LAB-MICRO | | | [...] | CULTURE | Acid Fast | | [facility] | | | RESULT | Bacilli Culture | | REGIONAL | | | | | | LAB-MICRO | | | | Source.............: | | | | | | Site 4, right hip, | | | | | | surgical, hold for | | | | | | | | | | | | | | | | | | propionibacteriu | | | | | | m RLB FA | | | | | [...] | | | | | | RLB | | | | | | ([facility]) | | | | | | [facility] | | | | | | [address] | | | | | | [address] | | | | | | [address] | | | | | | | | | | | | [place] [address] | | | | + + + + + + + + | Specimen | + + | | + + + + + + + | Performing | Address | City/State/Zipcode | Phone Number | | Organization | | | | + + + + + | [facility] | [address] | [place] [address] | | | LAB-MICRO | | | [...] + + + | [facility] | [address] | [place] [address] | | | LAB-MICRO | | | [...] + + + | [facility] | [address] | [place] [address] | | | LAB-MICRO | | | [...] | | REGIONAL | | | | Source ....: Site 4, | | LAB-MICRO | | | | right hip, surgical, | | | | | | hold for | | | | | | | | | | | | | | | | | | propionibacteriu | | | | | | m | | | | | | Smear..............: [...] [facility] | | | | | | [address] | | | | | | [address] | [address] | | | | | | [place], | | | | | | [place] [address] | | | | + + + + + + + + | Specimen | + + | | + + + + + + + | Performing | Address | City/State/Zipcode | Phone Number | | Organization | | | | + + + + + | [facility] | [address] | [place] [address] | | | LAB-MICRO | | | [...] + + + | [facility] | [address] | [place] [address] | | | LAB-MICRO | | | [...] + + + | [facility] | [address] | [place] [address] | | | LAB-MICRO | | | [...] | | | | | | | propionibacteriu | | | | | | m RLB Gram | | | | | [...] | | | | | | 1+ | | | | | | [...] for | | | | | | susceptibili | | | | | | ties. No | | | | | | anaerobes isolated | | | | | | No | | | | | | Propionibacterium | | | | | | isolated. Final | | | | | | Report | | | | | | Resulted: / | | | | | | 27/11 | | | | | | [facility] | | | | | | ([facility]) | | | | | | [facility] | | | | | | [address] | | | | | | [address] | | [address] | | | | | | [place] | | | | | | , [place] [address] | | | | + + + + + + + + | Specimen | + + | | + + + + + + + | Performing | Address | City/State/Zipcode | Phone Number | | Organization | | | | + + + + + | [facility] | [address] | [place] [address] | | | LAB-MICRO | | | [...] + + + | [facility] | [address] | [place] [address] | | | LAB-MICRO | | | [...] + + + | [facility] | [address] | [place] [address] | | | LAB-MICRO | | | [...] | CULTURE | Acid Fast | | [facility] | | | RESULT | Bacilli Culture | | REGIONAL | | | | | | LAB-MICRO | | | | Source.............: | | | | | | Site 3, right hip, | | | | | | surgical, hold for | | | | | | | | | | | | | | | | | | propionibacteriu | | | | | | m RLB FA | | | | | [...] | | | | | | RLB | | | | | | ([facility] [address] [facility]) | | | | | | [facility] | | | | | | [address] | | | | | | [address] | | | | | | [address] [facility] | | | | | | | | | | | | [place] [address] | | | | + + + + + + + + | Specimen | + + | | + + + + + + + | Performing | Address | City/State/Zipcode | Phone Number | | Organization | | | | + + + + + | [facility] | [address] | [place] [address] | | | LAB-MICRO | | | [...] + + + + + | [facility] | [address] | [place] [address] | | | LAB-MICRO | | | [...] + + + | [facility] | [address] | [place] [address] | | | LAB-MICRO | | | [...] | | REGIONAL | | | | Source ....: Site 3, | | LAB-MICRO | | | | right hip, surgical, | | | | | | hold for | | | | | | | | | | | | | | | | | | propionibacteriu | | | | | | m | | | | | | Smear..............: [...] [facility] | | | | | | ([address] [facility]) | | | | | | [facility] | | | | | | [address] | | | | | | [address] | | [address] | | | | | | [place], | | | | | | [place] [address] | | | | + + + + + + + + | Specimen | + + | | + + + + + + + | Performing | Address | City/State/Zipcode | Phone Number | | Organization | | | | + + + + + | [facility] | [address] | [place] [address] | | | LAB-MICRO | | | [...] | | | | | | | propionibacteriu | | | | | | m RLB Gram | | | | | [...] | | | | | | Rare Stap | | | | | | hylococcus | | | | | | aureus | | | | | | | | | | | | Final ID | | | | | | Refer to | | | | | | right hip fluid culture | | | | | | collected 10-16-2010 at | | | | | | 08:40 for | | | | | | susceptibili | | | | | | ties. No | | | | | | anaerobes isolated | | | | | | No | | | | | | Propionibacterium | | | | | | isolated. Final | | | | | | Report | | | | | | Resulted: 01/ | | | | | | 27/11 | | | | | | [facility] | | | | | | ([facility]) | | | | | | [facility] | | | | | | [address] | | | | | | [address] | [address] | | | | | | [place] | | | | | | , [place] [address] | | | | + + + + + + + + | Specimen | + + | | + + + + + + + | Performing | Address | City/State/Zipcode | Phone Number | | Organization | | | | + + + + + | [facility] | [address] | [place] [address] | | | LAB-MICRO | | | [...] + + + | [facility] | [address] | [place] [address] | | | LAB-MICRO | | | [...] | + + + + + | [facility] | [address] | [place] [address] | | | LAB-MICRO | | | [...] | CULTURE | Acid Fast | | [facility] | | | RESULT | Bacilli Culture | | REGIONAL | | | | | | LAB-MICRO | | | | Source.............: | | | | | | Site 2, right hip, | | | | | | surgical, hold for | | | | | | | | | | | | | | | | | | propionibacteriu | | | | | | m RLB FA | | | | | [...] | | | | | | RLB | | | | | | ([facility] [address] [facility]) | | | | | | [address] | | | | | | [address] | | | | | | [address] | | | | | | [address] | | | | | | | | | | | | [place] [address] | | | | + + + + + + + + | Specimen | + + | | + + + + + + + | Performing | Address | City/State/Zipcode | Phone Number | | Organization | | | | + + + + + | [facility] | [address] | [place] [address] | | | LAB-MICRO | | | [...] + + + | [facility] | [address] | [place] [address] | | | LAB-MICRO | | | [...] | | REGIONAL | | | | Source ....: Site 2, | | LAB-MICRO | | | | right hip, surgical, | | | | | | hold for | | | | | | | | | | | | | | | | | | propionibacteriu | | | | | | m | | | | | | Smear..............: [...] [facility] | | | | | | [address] | | | | | | [address] | | [address] | | | | | | [place], | | | | | | [place] [address] | | | | + + + + + + + + | Specimen | + + | | + + + + + + + | Performing | Address | City/State/Zipcode | Phone Number | | Organization | | | | + + + + + | [facility] | [address] | [place] [address] | | | LAB-MICRO | | | [...] + + + | [facility] | [address] | [place] [address] | | | LAB-MICRO | | | [...] | | | | | | | propionibacteriu | | | | | | m RLB Gram | | | | | [...] | | | | | | 1+ | | | | | | [...] for | | | | | | susceptibili | | | | | | ties. No | | | | | | anaerobes isolated | | | | | | No | | | | | | Propionibacterium | | | | | | isolated. Final | | | | | | Report | | | | | | Resulted: / | | | | | | 27/ | | | | | | RLB | | | | | | ([facility]) | | | | | | [facility] | | | | | | [address] | | | | | | [address] | [address] | | | | | | [place] | | | | | | , [place] [address] | | | | + + + + + + + + | Specimen | + + | | + + + + + + + | Performing | Address | City/State/Zipcode | Phone Number | | Organization | | | | + + + + + | [facility] | [address] | [place] [address] | | | LAB-MICRO | | | [...] + + + | [facility] | [address] | [place] [address] | | | LAB-MICRO | | | [...] | + + + + + | [facility] | [address] | [place] [address] | | | LAB-MICRO | | | | + + + + + JANENE, [employer] (ALL SPECIMEN TYPES) (10/16/2010 9:50 AM [...] | CULTURE | Acid Fast | | [facility] | | | RESULT | Bacilli Culture | | REGIONAL | | | | | | LAB-MICRO | | | | Source.............: | | | | | | Site 1, right hip, | | | | | | surgical, hold for | | | | | | | | | | | | | | | | | | propionibacteriu | | | | | | m RLB FA | | | | | [...] | | | | | | RLB | | | | | | ([facility] [facility]) | | | | | | [address] | | | | | | [address] | | | | | | [address] [address] | | | [address] | | | | | | | | | | | | [place] [address] | | | | + + + + + + + + | Specimen | + + | | + + + + + + + | Performing | Address | City/State/Zipcode | Phone Number | | Organization | | | | + + + + + | [facility] | [address] | [place] [address] | | | LAB-MICRO | | | [...] + + + | [facility] | [address] | [place] [address] | | | LAB-MICRO | | | [...] | | REGIONAL | | | | Source ....: Site 1, | | LAB-MICRO | | | | right hip, surgical, | | | | | | hold for | | | | | | | | | | | | | | | | | | propionibacteriu | | | | | | m | | | | | | Smear..............: [...] [facility] | | | | | | [facility] [address] | | | | | | [address] | | | | | | [place], | | | | | | [place] [address] | | | | + + + + + + + + | Specimen | + + | | + + + + + + + | Performing | Address | City/State/Zipcode | Phone Number | | Organization | | | | + + + + + | [facility] | [address] | [place] [address] | | | LAB-MICRO | | | [...] + + + | [facility] | [address] | [place] [address] | | | LAB-MICRO | | | [...] | | | | | | | propionibacteriu | | | | | | m RLB Gram | | | | | [...] | | | | | | 1+ | | | | | | [...] for | | | | | | susceptibili | | | | | | ties. No | | | | | | anaerobes isolated | | | | | | No | | | | | | Propionibacterium | | | | | | isolated. Final | | | | | | Report | | | | | | Resulted: / | | | | | | / | | | | | | RLB | | | | | | ([facility]) | | | | | | [address] | | | | | | [facility] [address] | | | | | | [address] | [address] | | | | | | [place] | | | | | | , [place] [address] | | | | + + + + + + + + | Specimen | + + | | + + + + + + + | Performing | Address | City/State/Zipcode | Phone Number | | Organization | | | | + + + + + | [facility] | [address] | [place] [address] | | | LAB-MICRO | | | [...] | | | | | Growth in | | | | | | Aerobic Bottle | | | | | | Growth in | | | | | | Anaerobic Bottle | | | | | | Unable to | | | | | | continue culture for | | | | | | anaerobes due to | | | | | | overgrowth of | | | | | | other organisms. | | | | | | Unable to | | | | | | continue culture for | | | | | | Propionibacterium due | | | | | | to growth of | | | | | | other organisms. | | | | | | | | | | | | S. | | | | | | aureus | | | | | | Cefazolin | | | | | | S | | | | | | Ciprofloxacin | | | | | | S | | | | | | Clindamycin | | | | | | S | | | | | | Erythromycin | | | | | | S | | | | | | Oxacillin | | | | | | S | | | | | | Tetracycline | | | | | | S | | | | | | Trimeth/Sulfa | | | | | | S | | | | | | Vancomycin | | | | | | S | | | | | | Penicillin | | | | | | R | | | | | | Rifampin | | | | | | S Final | | | | | | Report | | | | + + + + + + + + | Specimen | + + | | + + + + + | Narrative | Performed At | + + + | JNT result phd to Mona Kevin @0022. read back | [facility] | | | REG[facility]AL | | | LAB-MICRO | + + + + + + + + | Performing | Address | City/State/Zipcode | Phone Number | | Organization | | | | + + + + + | [facility] | [address] | [place] [address] | | | LAB-MICRO | | | [...] [facility] DEPARTMENT OF | [address] | [place] [address] | | | PATHOLOGY | [address] [...] + + + + | [facility] | [address] | [place] [address] | | | PATHOLOGY | [address] [...] [facility] | | [facility] ([address] [facility]) | REGIONAL | | [facility] [place] [address] | LABORATORY | | [place] [address] | | + + + + + + + + | Performing | Address | City/State/Zipcode | Phone Number | | Organization | | | | + + + + + | [facility] | [address] | [place] [address] | | | LABORATORY | | | [...] At | + + + | RLB ([facility]) | [facility] | | [facility] [address] | REGIONAL | | [address] [facility] | LABORATORY | | [place] [address] | | + + + + + + + + | Performing | Address | City/State/Zipcode | Phone Number | | Organization | | | | + + + + + | [facility] | [address] | [place] [address] | | | LABORATORY | | | [...] [facility] | [address] | [place], [place] | | | THERAPY | [address] | [address] | | + + + + + OPERATION RECORD (10/16/2010 12:00 AM PST) + + + | Narrative | Performed At | + + + | [id number] | | | [id number] | | | [id number] [facility] | | | CHASTITY Osei [id number] | | | Date: 10/16/2010 Attending | | | Surgeon: Kalyan Arias M.D. | | | Unix Engineer(s): Raymond | | | Sierra Valdes. 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 Procedures Performed: | | | 1. Irrigation and debridement, right hip deep soft tissue to | | | bone, length of incision 15 cm, depth 15-20 cm. | | | 2. Hardware removal, right proximal femur including clawed | | | cable plate and 2 AO screws and washers. 3. Deep | | | tissue culture and biopsy using Ortho biopsy tray. | | | Anesthesia: General endotracheal. Specimens: Deep tissue | | | cultures x7 and removed hardware. Complications: None | | | appreciated. Clinical Note: Chastity Galdamez is a 50-year-old | | | female, who is almost 3 years out from a right total hip | | | arthroplasty. 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 At the time of her index arthroplasty, frozen | | | section biopsies were sent, and there was no evidence of | | | infection. She underwent a primary hip replacement. An | | | attempted ORIF of her trochanteric nonunion with a clawed cable | | | plate. The patient was unable to be compliant with weightbearing | | | restrictions, and her hardware failed in the early postoperative | | | period. This went on to be minimally symptomatic for her, and | | | she did well with the arthroplasty itself. She presented as an | | | ED transfer to [facility] approximately 3 days prior to the above-listed | | | procedure with a new sudden onset right hip pain and | | | leukocytosis. She underwent aspiration by Radiology of the joint | | | with minimal fluid returned and negative preliminary cultures. She | | | was worked up for fever of unknown origin, and no other sources | | | were identified. Her hip pain persisted as [...] was a fluctuant mass over the greater | | | trochanter, and 40 cc was aspirated of clear blood-tinged | | | synovial-appearing fluid. This was sent for anaerobic and | | | aerobic cultures and blood culture bottles per the ortho biopsy | | | protocol. The fascia was then divided in line with the skin. | | | There was no grossly purulent material encountered throughout the | | | procedure, and other than an abundant foreign body-type tissue | | | reaction with extensive bursa, the tissue appeared to be healthy and | | | viable. A total of 5 deep tissue biopsies were sent using the | | | Ortho biopsy tray for culture. The wound was copiously | | | irrigated. The trochanteric claw cable plate was readily | | | encountered and was found to be grossly loose. The intact cables | | | were cut and the hardware removed without difficulty. There was | | | a previous broken cable with some fraying evident on x-ray. Some | | | of this was encountered and debrided as much was felt to be | | | safe. Next, the AO screws and washers were identified in the | | | supratrochanteric region. These were dissected out and removed | | | without further difficulty. The wound bed was then further | | | debrided of any friable tissue or excess bursa. The wound was | | | then copiously irrigated with 10 L of pulsatile lavage and then | | | closed in layers over medium Hemovac drain in a standard fashion, | | | and a standard dressing was applied. The patient recovered | | | uneventfully from her anesthetic and transferred stable to PACU. | | | Plan: The patient will be kept on antibiotics until her cultures | | | returned. If positive, the Infectious Disease Service will be | | | consulted. If there is indeed infection, it was felt that this | | | was a hematogenous seeding, and so attempts at prosthesis salvage | | | would be preferable. She will receive multimodal DVT | | | prophylaxis. Kalyan Arias M.D. [facility] / [id number] / | | | [id number] / [id number] / | | + + + + + | Procedure Note | + + | Kalyan Arias MD - 10/17/2010 9:21 AM PST [id number] | | [id number] [facility] | | [id number] Date: 10/16/2010 Attending Surgeon: Kalyan | | Ortiz Arias M.D. Unix Engineer(s): Raymond Valdes M.D. Preoperative | | Diagnosis(es):1. [...] who is almost 3 years out from [facility] total hip arthroplasty. She had a | [...] She presented as an ED transfer to [facility] approximately 3 | | days priorto the [...] aerobic cultures and blood culture bottles per [facility] biopsy protocol. The fascia | | was [...] | will receivemultimodal DVT prophylaxis. Kalyan Arias M.D.[facility] / [id number] / [id number] | | / [id number] / T: 10/16/2010 | |minimally symptomatic for her, and she did well with the arthroplasty | |itself. She presented as an ED transfer to [facility] approximately 3 days prior | |to the [...] | | | |Kalyan Arias M.D. | |[facility] / | |[id number] / [id number] / [id number] / | | | | | | [...] [facility] | [id number] | [place], [place] | | | [facility] | [address] | [address] | | | TESTS | | | [...] | [place] [facility]PARTMENT [facility] | [address] | [place] [address] | | | PATHOLOGY | [address] [...] + + + + | PRODUCT | [id number] | | [facility] | | | UNIT [...] + + + + | BLOOD | [id number] | | [facility] | | | PRODUCT [...] DEPARTMENT OF | [address] | [place], [place] [address] | | | PATHOLOGY | [address] [...] + + + + | PRODUCT | [id number] | | [facility] | | | UNIT [...] + + + + | BLOOD | [id number] | | [facility] | | | PRODUCT [...] [facility] CENTER DEPARTMENT | [address] | [place] [address] | | | PATHOLOGY | [address] [...] (H) | 60 - 99 mg/dL | [facility] - | | | GLUCOSE, | | [...] AHN | [address] | [place], [place] | | | JADA EPPS OF [place] | [facility] | [address] | | | TESTS | | | [...] JIMY | [address] | [place], [place] | | | JADA EPPS OF [facility] | [address] | [address] | | | TESTS | | | | + + + + + CAPILLARY BLOOD GLUCOSE, POC (10/14/2010 11:02 PM PST) + +---------+ + + + | Component | Value | Ref Range | Performed | Pathologist | | | | | At | Signature | + +---------+ + + + | BLOOD | 142 (H) | 60 - 99 mg/dL | [facility] - | | | GLUCOSE, | | [...] + + + | [facility] | [address] | [place], [place] | | | JADA EPPS OF [facility] | [address] | [address] | | | TESTS | | | [...] | | | | | the lung | | | | | | bases. Mildintrahepat | | | | | | ic and extrahepatic | | | | | | biliary dilatation is | | | | | | noted with | | | | | [...] kidney | | | | | | arenormal. Subcentime | | | | | | ter hypodensities in the | | | | [...] | | | | | dysmotility. Small | | | | | | fat containing | | | | | | [...] | | | | | | of | | | | | | diverticulitis. Noevi | | | | | | dence of bowel | | | | | | obstruction is | | | | | | seen. The bladder is | | | | | | normal. Noascites. | | | | | | Increased inflammatory | | | | | | changes are noted along | | | | | | the subcutaneoustissues | | | | | | of the right hip with a | | [...] | | | | femur. Given the | | | | | | fluid collection | | | | | | andcortical irregularity | | | | | | of the right femur, | | | | | | infection is | | | | | | possible.There is also | | | | | | lucency around the | | | | | | orthopedic hardware | | | | | | suggestingloosening. | | | | | | IMPRESSION: 1. No | | | | | | evidence of | | | | | | diverticulitis. | | | | | | 2. New fluid | | | | | | collection surrounding | | | | | | the right hip with | | | | | | irregularityof the | | | | | | femoral cortex is | | | | | | worrisome for | | | | | | infection. Correlate | | | | | | withaspiration. I have | | | | | | personally viewed this | | | | | | procedure/exam and | | | | | | reviewed this report. | | | | | | Author: EDY CAPELLAN, | | | | | | M.HeriReviewer: EDY CAPELLAN, | | | | | | M.Heri STATUS FINAL / | | | | [...] | | | | | | minuteRespiratory | | | | | | rate: 18 breaths per | | | | [...] [facility] | [address] | [place], [place] | | | THERAPY | [address] | [address] | | + + + + + [...] view image for the detailed interpretation from [facility] results. | CARDIOLOGY | + + + + + + + + | Performing | Address | City/State/Zipcode | Phone Number | | Organization | | | | + + + + + | [facility] | [address] | [place], [place] | | | CARDIOLOGY | [address] | [address] | | + + + + + [...] | + + + + + | [facility] | [address] | [place] [address] | | | LAB-MICRO | | | [...] DEPARTMENT OF | [address] | [place] [address] | | | PATHOLOGY | [address] [...] DEPARTMENT OF | [address] | [place] [address] | | | PATHOLOGY | [address] [...] 07:36: RAHUL COMMENTS, prev report: Slide | [facility] | | review pending. | DEPARTMENT OF | | | PATHOLOGY | + + + + + + + + | Performing | Address | City/State/Zipcode | Phone Number | | Organization | | | | + + + + + | [facility] | [address] | [place] [address] | | | PATHOLOGY | [address] [...] | | | | | | Resulted: / | | | | | | 15/08 | | | | | | [facility] | | | | | | ([facility]) | | | | | | Regis | | | | | | [facility] | | | | | | [address] | | | [address] | | | | | | [place] | | | | | | , [place] [address] | | | | + + + + + + + + | Specimen | + + | | + + + + + + + | Performing | Address | City/State/Zipcode | Phone Number | | Organization | | | | + + + + + | [facility] | [address] | [place] [address] | | | LAB-MICRO | | | | + + + + + KADEN SEBASTIAN ONLY (10/13/2010 10:45 PM PST) + + [...] [facility] DEPARTMENT OF | [address] | [place] [address] | | | PATHOLOGY | [address] [...] [facility] DEPARTMENT OF | [address] | [place] [address] | | | PATHOLOGY | [address] [...] + + + + | [facility] | [address] | [place] [address] | | | PATHOLOGY | [address] [...] Forearm | | | | | | | [...] + + + | [facility] | [address] | [place] [address] | | | LAB-MICRO | | | [...] Forearm | | | | | | | [...] + + + | [facility] | [address] | [place] [address] | | | LAB-MICRO | | | [...] | | | | | enlarged, as | | | | | | before. Themediastina | | | | | | l contour is within | | | | | | normal limits. There | | | | | | is mild | | | | | | vascularengorgement. | | | | | | Vascular pedicle width | | | | | | is increased compatible | | | | | | withincreased | | | | | | intravascular | | | | | | volume. Mild airway | | | | | | thickening may also | | | | | | bepresent. No | | | | | | consolidation or | | | | | | edema. No | | | | | | pneumothorax or | | | | | | pleuraleffusion. Carole | | | | | | onal osseous structures | | | | | | are intact. IMPRESSION: | | | | | | 1. Stable mild | | | | | | cardiomegaly. | | | | | | 2. Increased | | | | | | intravascular volume | | | | | | without edema. | | | | | | 3. Possible mild | | | | | | airway thickening which | | | | | | could reflect | | | | | | [...] | | | | | TECHNIQUE AND | | | | | | FINDINGS: Verbal and | | | | | | written informed | | | | | | consent wasobtained from | | | | | | the patient, who was | | | | | | then positioned supine | | | | | | oblique onthe | | | | | | fluoroscopy | | | | | | table. The right hip | | | | | | was localized | | | | | | underfluoroscopic | | | | | | visualization, and a | | | | | | suitable skin entry site | | | | | | wasselected and | | | | | | marked. The femoral | | | | | | pulse was palpated and | | | | | | noted to bemedial to the | | | | | | anticipated needle | | | | | | path. The area was | | | | | | prepared anddraped in | | | | | | the usual sterile | | | | | | fashion. Under | | | | | [...] | | | | | | aspirationattempt. Ap | | | | | | proximately 17 cc | | | | | | preservative-free saline | | | | | | was injectedfollowing | | | | | | the last | | | | | | attempt. Aspiration | | | | | | yielded less than 1 cc | | | [...] | | | | | | ofserosanguineous | | | | | | fluid. The fluid was | | | | | | sent for the usual | | | | | | studies. I have | | | | | | personally viewed this | | | | | | procedure/exam and | | | | | | reviewed this report. | | | | | | Author: PATO MINA | | | | | | MalcomReviewer: MOSHE | | | | | | Malcom CASTRO STATUS | | | | | | FINAL / Dr. MESA | | | | | | ARNAUDUS PENDING | | | | | | FINAL APPROVAL / | | | | | | PATO TOUS | | | | | | PRELIMINARY [...] | | + +---------+ + + | [facility] | | | | | RADIOLOGY | [...] + | [facility] DEPARTMENT | [address] | [place] [address] | | | PATHOLOGY | [address] [...] + + + + | [facility] | [address] | [place] [address] | | | PATHOLOGY | [address] [...] DEPARTMENT OF | [address] | [place] [address] | | | PATHOLOGY | [address] [...] + + + | [facility] | [address] | [place] [address] | | | LAB-MICRO | | | [...] + + + + | [facility] | [address] | [place] [address] | | | PATHOLOGY | [address] [...] + + | [facility] DEPARTMENT OF | [address] | [place] [address] | | | PATHOLOGY | [address] [...] DEPARTMENT OF | [address] | [place] [address] | | | PATHOLOGY | [address] [...] + + + + | [facility] | [address] | [place] [address] | | | PATHOLOGY | [address] [...] effective 10/26/08 | [facility] | | [facility] ([facility]) | REGIONAL | | [facility] | LABORATORY | | [address] | | | [place] [address] | | + + + + + + + + | Performing | Address | City/State/Zipcode | Phone Number | | Organization | | | | + + + + + | [facility] | [address] | [place] [address] | | | LABORATORY | | | [...] | | | HOURS, First dose on Sat10/16/10 | | AM PST | | | [...] 5 mg 5 mg, intravenous, ONCE, | | 11 2:25 | | | | | dose, [...] | | | Until 10/23/10 at 1604, rash, | | | | [...] | | NORCO) 7.5-325 mg 1-2 Tab 1- | | 11 3:06 | tablets | [...] PST | | | | | Starting Sat10/16/10 at 0907, | | | | | [...] | | | | | dose, Starting 10/16/10 at | | | | | | | 0907, Until 10/16/10 at 1122, | | | | | [...] + +---+ + +-------+ +--------+---+---+ | metroNIDAZOLE (anisa NAPIER) | Given | 10/23/19 | 500 mg | | | | tablet 500 mg 500 mg, oral, | | 11 8:16 | | | | | THREE TIMES DAILY, First dose on | | AM PST | | | | | [place] 10/19/10 at 0900, Until | | | [...] | | | | | 1630, Until Sat10/23/10 at 1604, | | | | | [...] | | | + +---+ | ondansetron (aka ZOFRAN) | | | injection 1 dose, Starting [...] | 40 mEq | | | | KLDASHAWN-CON) packet 40 mEq 40 mEq, | | [...]
--- OUTSIDE RECORDS SUMMARY | ~2019-02-26 | XMS | Encounter Summary ---
Demographics + + + | Address | [address] | | | [place] [address] | + + + | Home Phone [...] Author + + + | Author | [facility] | + + + | Organization | [facility] | + + + | Address [...] Providers + +------+ + | Care Instrument Maker Name | Role | Phone | [...] | osteoarthrit | [address] | | | | | is of left | [address] | [address] | | | | | hip | [address] | Mailcode: | | | | | Procedures | [place], [place] | [facility] for | | | | | CONSULT TO | [address] | Health and | | | | | BARIATRIC | Phone: | Healing, | | | | | SURGERY | [phone] | [address] | | | | | | Fax: | [place], [place] | | | | | | [phone] | [address] | | | | | | | Phone: | | | | | | | | | | | | | | Fax: | | | | | | | [phone] | +--------+--------+ + + + + Reason [...] | | | | | | | [address] | | | | | | | [address] | | | | | | | [place], | | | | | | | [place] | | | | | | | [address] | | | | | | | Phone: | | | | | | | [phone] | | | | | | | Fax: | | | | | | | [phone] | +--------+--------+ + + + + Encounter Details +--------+---------+ + + + | Date | Type | Department | Care Team | Description | +--------+---------+ + + + | 10/02/ | Office | Orthopaedics at | Royce Durand, | Primary | | 2019 | Visit | [facility] [address] | [address] | osteoarthritis of | | | | Ave Mailcode: CH[address]A | [address] | left hip (Primary | | | | [facility] | [place], [place] | Dx); Left hip pain; | | | | and Healing, | [address] | Smoking; Chronic | | | | Floor [place], [place] | [phone] | obstructive | | | | [address] | | pulmonary disease, | | | | [phone] | | unspecified COPD | | | [...] might be different fro m the original. [facility] DEPARTMENT OF ORTHOPAEDICS & REHABILITATION Adult [...] W-FE,OTHER MIN (CENTRUM ORAL), Take by mouth. Catron-3 Fatty Acids-Vitamin E (FISH OIL) 1,000 mg [...] The patient was offered a referral to [facility], for non-surgical and potentially surgical [...]
--- OUTSIDE RECORDS SUMMARY | ~2019-02-26 | XMS | Encounter Summary ---
Demographics + + + | Address | [address] | | | [place] [address] | + + + | Home Phone [...] Providers + +------+ + | Care Marine Surveyor Name | Role | Phone | + [...] as of this encounter Progress Notes Interface, Group Cio In - 04/28/2006 3:06 AM PDTCLINIC DATE: 09/24/2002 ORTHOPEDIC CLINIC SUBJECTIVE: A 42-year-old obese female follows for right hip endstage degenerative joint disease. She returns to clinic today stating that her hip is bothering her again. Her last injection was 6 months ago in February 2002. It lasted approximately 5 months. She continues with a therapy [facility]. She takes Celebrex, multivitamin, and uses a [...] fluoroscopically-guided hip injections closer to home in [place], [place], and come here when she fails to respond to schedule her total hip replacement at that time. She seems to prefer to drive across the [place] for her care. Lloyd Garcia M.D. Helper Coordinator, Orthopedics and Rehabilitation / [id number] / [id number] / [id number] / [id number] cc: Ninfa Guillen M.D. [address] [place], [place] [id number] signed by Interface, Group Cio In at 04/28/2006 3:0 6 AM PDTInterface, Group Cio In - 04/28/2006 3:06 AM PDTCLINIC DATE: [...] to return all the way [facility] from [place], [place]. Shruti Manjarrez MD AM / [id number] / [id number] / [id number] / [id number] cc: Ninfa Guillen M.D. [address] [place], [place] [id number] signed by Interface, Group Cio In at 04/28/2006 3:0 6 AM PDTdocumented in this encounter Plan of Treatment Not on filedocumented as of this encounter Visit Diagnoses Not on filedocumented in this encounter"
--- OUTSIDE RECORDS SUMMARY | ~2019-02-26 | XMS | Encounter Summary ---
Demographics + + + | Address | [address] | | | [place] [address] | + + + | Home Phone [...] Author + + + | Author | [facility] | + + + | Organization | [facility] | + + + | [...] Providers + +------+ + | Care Tip Length Checker Name | Role | Phone | [...] as of this encounter Progress Notes Interface, Patent Drafter In - 07/22/2006 3:18 AM PDTCLINIC DATE: [...] that. Jason Castano M.A. TAYE / SALEEM [id number] / [id number] / [id number] / Tdocumented in this encounter Plan of Treatment Not on filedocumented as of this encounter Visit Diagnoses Not on filedocumented in this encounter"
--- OUTSIDE RECORDS SUMMARY | ~2019-02-26 | XMS | Encounter Summary ---
Demographics + + + | Address | [address] | | | [place] [address] | + + + | Home Phone [...] + + + | Author | [facility] | + + + | Organization | [facility] | + + + | Address [...] Team Providers + +------+ + | Care Land Commissioner Name | Role | Phone | [...] | | | 2007 | | [facility] [address] | [address] | | | | | [facility] | [facility] | | | | | Mailcode: PV430 | [place], [place] | | | | | [facility] | [address] | | | | | [place], [place] | [phone] | | | | | [address] | | | | | | [phone] | | | +--------+ + + + [...]
--- OUTSIDE RECORDS SUMMARY | ~2019-02-26 | XMS | Encounter Summary ---
Demographics + + + | Address | [address] | | | [place] [address] | + + + | Home Phone [...] Team Providers + +------+ + | Care Rail Car Repairer Name | Role | Phone | [...] as of this encounter Discharge Summaries Interface, Motor Winder In - 03/06/2006 1:10 AM PDTAdmission Date: [...] time of discharge. She initially had a KICK BOXER that was weaned off as well as [...]
--- OUTSIDE RECORDS SUMMARY | ~2019-02-26 | XMS | Encounter Summary ---
Demographics + + + | Address | [address] | | | [place] [address] | + + + | Home Phone [...] Team Providers + +------+ + | Care Bag Printer Name | Role | Phone | [...] [facility] | [address] | [place] [address] | | | PATHOLOGY | [address] | | | + + + + + | [facility] | [facility] | [place] [address] | | | PATHOLOGY | [address] [...] | | | | | | 4.0-5.7 | | | | | | % Risk For | | | | | | Chronic Complications in | | | | | | Adults: Low | | | | | | risk of | | | | | | complications: | | | | | | <7.0 % | | | | | | Intermediate | | | | | | risk of | | | | | | complications 7.0-7.9 | | | | | | % High risk of | | | | | | complications | | | | | | >7.9 % | | | | | | Test performed by | | | | | | [facility] | | | | | | [facility]. | | | | + + + + + + + + | Specimen | + + | | + + + + + + + | Performing | Address | City/State/Zipcode | Phone Number | | Organization | | | | + + + + + | [facility] | [address] | [place] [address] | | | LABORATORY | | | [...] + + + + + | [facility] DEPARTMENT OF | [address] | [place] [address] | | | PATHOLOGY | [address] | | | + + + + + | [facility] DEPARTMENT OF | [address] | [place] [address] | | | PATHOLOGY | [address] [...] | + + + + + | [facility] | [address] | [place] [address] | | | PATHOLOGY | [address] | | | + + + + + | [facility] | [facility] [address] | [place] [address] | | | PATHOLOGY | [address] [...] 1: ROSALBA, | | | | | VIEW | HUSSEIN BOYCE | | | | | | CHEST: 09/26/2003 | | | | | | Dictated 09/27/2003 | | | | | | COMPARISON: No | | | | | | comparison film. | | | | | | INDICATION: PICC line | | | | | | placement. | | | | | | FINDINGS: A | | | | | | left-sided PICC catheter | | | | | | has its tip involving | | | | | | thecavo-atrial | | | | | | junction. Cardiac | | | | | | silhouette is normal, | | | | | | and there is nopulmonary | | | | | | edema, pneumothorax, or | | | | | | pleural | | | | | | effusion. Osseousstru | | | | | | ctures demonstrate | | | | | | bilateral rudimentary | | | | | | cervical ribs. | | | | | | IMPRESSION: 1. Low | | | | | | lung volumes with | | | | [...] | A1C | | | | | | | Non-Diabetic: | | | | | | | | | | | | 4.0-5.7 | | | | | | % Risk For | | | | | | Chronic Complications in | | | | | | Adults: Low | | | | | | risk of | | | | | | complications: | | | | | | <7.0 % | | | | | | Intermediate | | | | | | risk of | | | | | | complications 7.0-7.9 | | | | | | % High risk of | | | | | | complications | | | | | | >7.9 % | | | | | | Test performed by | | | | | | [facility] | | | | | | [facility]. | | | | + + + + + + + + | Specimen | + + | | + + + + + + + | Performing | Address | City/State/Zipcode | Phone Number | | Organization | | | | + + + + + | [facility] | [address] | [place] [address] | | | LABORATORY | | | [...] + + + + + | [facility] DEPARTMENT OF | [address] | [place] [address] | | | PATHOLOGY | [address] | | | + + + + + | [facility] DEPARTMENT OF | [address] | [place] [address] | | | PATHOLOGY | [address] | | | + + + + + documented in this encounter Visit Diagnoses Not on filedocumented in this encounter"
--- OUTSIDE RECORDS SUMMARY | ~2019-02-26 | XMS | Encounter Summary ---
Demographics + + + | Address | [address] | | | [place] [address] | + + + | Home Phone [...] Team Providers + +------+ + | Care Bliss Press Operator Name | Role | Phone | [...] | | | | | or | [address] | Pavilion | | | | | localized, | | [place], [place] | | | | | pelvic | | [address] | | | | | region and | | Phone: | | | | | thigh | | [phone] | | | | | Intervertebr | | Fax: | | | | | al lumbar | | [phone] | | | | | disc | [...] [address] | [address] [facility] | Hip (Primary Dx) | | | | [facility] | [address] [place], | | | | | Mailcode: PV430 | [place] [address] | | | | | [facility] | | | | | | [place], [place] | | | | | | [address] | | | | | | [phone] | | | +--------+---------+ + + + [...]
--- OUTSIDE RECORDS SUMMARY | ~2019-02-26 | XMS | Encounter Summary ---
Demographics + + + | Address | [address] | | | [place] [address] | + + + | Home Phone [...] Team Providers + +------+ + | Care Medicinal Plant Picker Name | Role | Phone | + [...] as of this encounter Progress Notes Interface, Fha Underwriter In - 04/28/2005 5:10 PM PDT Referred [...]
--- OUTSIDE RECORDS SUMMARY | ~2019-02-26 | XMS | Encounter Summary ---
Demographics + + + | Address | [address] | | | [place] [address] | + + + | Home Phone [...] Providers + +------+ + | Care Staff Genetic Counselor Name | Role | Phone | [...] as of this encounter Progress Notes Interface, Pick Pulling Machine Tender In - 04/28/2005 7:30 PM PDTClinic Date: [...] Mariella Camacho P.A.-C. Lloyd Garcia M.D. / [id number] / [id number] / [id number] / [id number] Tdocumented in this encounter Plan of Treatment Not on filedocumented as of this encounter Visit Diagnoses Not on filedocumented in this encounter"
--- OUTSIDE RECORDS SUMMARY | ~2019-02-26 | XMS | Encounter Summary ---
Demographics + + + | Address | [address] | | | [place] [address] | + + + | Home Phone [...] Providers + +------+ + | Care Film Developer Name | Role | Phone | + +------+ + | Marta Jenkins LABELER | PCP | | + +------+ + Encounter Details +--------+ + + + + | Date | Type | Department | Care Team | Description | +--------+ + + + + | 11/07/ | Ancillary | Registration [address] | Gino Baker MD | | | 2005 | Registratio | [address] | [address] | | | | n | [address] Mailcode: | [address] [place], | | | | | [address] [place], [place] | [place] [address] | | | | | [address] | | | | | | [phone] | | | +--------+ + + + [...] | [facility] DEPARTMENT OF | [address] | [place] [address] | | | PATHOLOGY | [address] | | | + + + + + | [facility] DEPARTMENT | [address] | [place] [address] | | | PATHOLOGY | [address] [...] [facility] DEPARTMENT OF | [address] | [place] [address] | | | PATHOLOGY | [address] | | | + + + + + | [facility] DEPARTMENT OF | [address] [place] [address] [address] | [place] [address] | | | PATHOLOGY | [address] [...] | + + + + + | [facility] | [address] [facility] | [place] [address] | | | PATHOLOGY | [address] | | | + + + + + | [facility] | [facility] | [place] [address] | | | PATHOLOGY | [address] [...] | | | | | matured. Medial | | | | | | [...] | | | | | | ossification. | | | | | | 2. Stable medial | | | | | [...]
--- OUTSIDE RECORDS SUMMARY | ~2019-02-26 | XMS | Encounter Summary ---
Demographics + + + | Address | [address] | | | [place] [address] | + + + | Home Phone [...] + +------+ + | Care Medical Office Specialist Name | Role | Phone | [...] | Floor [address] | [facility] | | | | | [facility] | [place] [address] | | | | | Mailcode: L457 | [phone] | | | | | Physicians [address] | | | | | | [place], [place] | | | | | | [address] | | | | | | [phone] | | | +--------+ + + + [...] [address] | [place] [place] | [phone] | [facility] | | [address] | | + + + + + | [facility] | [address] | [place] | | | [facility] | | [address] | | + + + + + [...] | [facility] | [address] | [place] | [phone] | | [facility] | | [address] | | + + + + + | [facility] | [address] | [place] | | | [facility] | | [address] | | + + + + + documented in this encounter Visit Diagnoses Not on filedocumented in this encounter"
--- OUTSIDE RECORDS SUMMARY | ~2019-02-26 | XMS | Encounter Summary ---
Demographics + + + | Address | [address] | | | [place] [address] | + + + | Home Phone [...] Providers + +------+ + | Care Floor Tiling Professional Name | Role | Phone | [...] as of this encounter Progress Notes Interface, Co Founder And Ceo In - 07/18/2006 3:04 AM PDTCLINIC DATE: [...] further treatment options. Brigette Lim P.A.-C / [id number] / [id number] / [id number] / Tdocumented in this encounter Plan of Treatment Not on filedocumented as of this encounter Visit Diagnoses Not on filedocumented in this encounter"
--- OUTSIDE RECORDS SUMMARY | ~2019-02-26 | XMS | Encounter Summary ---
Demographics + + + | Address | [address] | | | [place] [address] | + + + | Home Phone [...] + + + | Author | [facility] | + + + | Organization | [facility] | + + + | [...] Team Providers + +------+ + | Care Duck Farmer Name | Role | Phone | + [...] [address] | | | | | [facility] | [facility] | | | | | Mailcode: PV430 | [facility] [place] | | | | | [facility] | [address] | | | | | [place], [place] | [phone] | | | | | [address] | | | | | | [phone] | | | +--------+ + + + [...]
--- OUTSIDE RECORDS SUMMARY | ~2019-02-26 | XMS | Encounter Summary ---
Demographics + + + | Address | [address] | | | [place] [address] | + + + | Home Phone [...] Team Providers + +------+ + | Care Door Manager Name | Role | Phone | [...] | + + | Interface, Air Conditioning Specialist In - 09/19/2005 9:05 PM PST Date: | | 09/29/2003Attending Surgeon: Lloyd Garcia M.D.Apartment Leasing Consultant(s): | | Benson Boone M.D.Preoperative Diagnosis:Right greater [...] Boone M.D.Lloyd | | Sierra Garcia.RT / [id number] / [id number] / [id number] / [id number]: 10/21/2003T: 10/22/2003 | |where she had a [...] | | | |RT / HS | |[id number] / [id number] / [id number] / [id number] | | | | | + + documented in this encounter Visit Diagnoses Not on filedocumented in this encounter"
--- OUTSIDE RECORDS SUMMARY | ~2019-02-26 | XMS | Encounter Summary ---
Demographics + + + | Address | [address] | | | [place] [address] | + + + | Home Phone [...] Providers + +------+ + | Care Sheet Finisher Name | Role | Phone | + +------+ + | No Pcp Per Patient | PCP | Unavailable | + +------+ + Encounter Details +--------+ + + + + | Date | Type | Department | Care Team | Description | +--------+ + + + + | 12/16/ | Hospital | Diagnostic | | | | 2008 | Encounter | Radiology at [facility] | | | | | | [address] [facility] | | | | | | [facility] | | | | | | Mailcode: PV450 | | | | | | [address] | | | | | | [place], [place] | | | | | | [address] | | | | | | [phone] | | | +--------+ + + + [...]
--- OUTSIDE RECORDS SUMMARY | ~2019-02-26 | XMS | Encounter Summary ---
Demographics + + + | Address | [address] | | | [place] [address] | + + + | Home Phone [...] Team Providers + +------+ + | Care Cooling Pan Tender Name | Role | Phone | [...] | Primary | Quintin I | [address] | | | | Orthopedics | localized | [place] | [address] | | | | | osteoarthros | MEDICAL | [address] | | | | | is, pelvic | CLINIC PO | Mailcode: | | | | | region and | [address] | [address] | | | | | thigh | [place], [place] | Physician's | | | | | Osteoarthros | [address] | Pavilion | | | | | is, | | [place], [place] | | | | | unspecified | | [address] | | | | | whether | | Phone: | | | | | generalized | | [phone] | | | | | or | | Fax: | | | | | localized, | | [phone] | | | | | pelvic | [...] | | 2006 | Visit | [facility] [address] | [address] | Hip (Primary Dx) | | | | [facility] | [address] [place], | | | | | Mailcode: PV430 | [place] [address] | | | | | Physician's Terrence | | | | | | [place], [place] | | | | | | [address] | | | | | | [phone] | | | +--------+---------+ + + + [...] Walks with glut medius limp. Uses cane parts inspector. Pain is in inner groin and posteriorly. [...] + + | Performing | Address | City[facility]State[facility] | Phone Number | | Organization | | | | + +---------+ + + | [facility] DEPARTMENT OF | | | | | RADIOLOGY | | | | + +---------+ + + documented in this encounter Visit Diagnoses + + | Diagnosis | + + | Osteoarthritis of hip - Primary Osteoarthrosis, unspecified whether generalized or | | localized, pelvic region and thigh | + + documented in this encounter"
--- OUTSIDE RECORDS SUMMARY | ~2019-02-26 | XMS | Encounter Summary ---
Demographics + + + | Address | [address] | | | [place] [address] | + + + | Home Phone [...] Providers + +------+ + | Care Warehouse Supervisor 3Rd Shift Name | Role | Phone | + [...] as of this encounter Progress Notes Interface, Software Quality Assurance Specialist In - 04/28/2005 5:10 PM PDTClinic [...] has been at her friend's house in [facility] and has been receiving IV antibiotics [...] Benson Boone M.D. Lloyd Garcia M.D. / [id number] / [id number] / [id number] / [id number] Tdocumented in this encounter Plan of Treatment Not on filedocumented as of this encounter Visit Diagnoses Not on filedocumented in this encounter"
--- OUTSIDE RECORDS SUMMARY | ~2019-02-26 | XMS | Encounter Summary ---
Demographics + + + | Address | [address] | | | [place] [address] | + + + | Home Phone [...] Author + + + | Author | [facility] | + + + | Organization | [facility] | + + + | [...] Providers + +------+ + | Care Manager Local Name | Role | Phone | + [...] Other | | 2006 | | [facility] [address] | [address] | | | | | [facility] | [facility], | | | | | Mailcode: PV430 | [place] [address] | | | | | [facility] | | | | | | [place], [place] | | | | | | [address] | | | | | | [phone] | | | +--------+ + + + [...]
--- OUTSIDE RECORDS SUMMARY | ~2019-02-26 | XMS | Encounter Summary ---
Demographics + + + | Address | [address] | | | [place] [address] | + + + | Home Phone [...] + + + | Author | [facility] | + + + | Organization | [facility] | + + + | [...] Team Providers + +------+ + | Care Hvac Project Manager Name | Role | Phone [...] | | | | [address] | [facility] | | | | | (sacroiliac) | [facility] | Road | | | | | joint | Rd | Mailcode: | | | | | inflammation | [place], [place] | [address] [facility] | | | | | ([facility]) | [address] | Hospital | | | | | Procedures | | [place], [place] | | | | | CT INJ | | | | | | | SACROILIAC | | Phone: | | | | | JOINT | | [phone] | | | | | W/NEEDLE | | Fax: | | | | | PLCMT | | [phone] | +--------+--------+ + + + + Diagnostic [...] | | | | Back pain | eTsfaye Evangelista, | [address] | | | | | Hip pain SI | [address] | [address] | | | | | | [address] | [facility] | | | | | (sacroiliac) | [facility] | Road | | | | | joint | Rd | Mailcode: | | | | | inflammation | [place], [place] | [address] [facility] | | | | | (HCC) | | Hospital | | | | | Procedures | | [place], [place] | | | | | CT INJ | | | | | | | SACROILIAC | | Phone: | | | | | JOINT | | [phone] | | | | | W/NEEDLE | | Fax: | | | | | PLCMT | | [phone] | +--------+--------+ + + + + Encounter Details +--------+ + + + + | Date | Type | Department | Care Team | Description | +--------+ + + + + | 03/22/ | Hospital | Diagnostic Imaging | | | | 2009 | Encounter | Services at [facility] | | | | | | [address] | | | | | | [facility] | | | | | | Mailcode: [address] [facility] | | | | | | [facility] | | | | | | [place] [address] | | | | | | [phone] | | | +--------+ + + + [...] | + + + +---------+--------+ + | [place]-3 Fatty | Take by mouth. | | [...] None. | | | | | | Manager Department: Dr. Moss, | | | | | | radiology supervisor. | | | | | | Vulcanizer: | | | | | | Dr. [...] the | | | | | | lead performance support analyst. Fabrication Engineer | | | | | | imaging [...] MOSS, | | | | | | M.HeriReviewer: KIM | | | | | | Malcom ROBERTS STATUS | | | | | | FINAL / Dr. ALVAREZ | | | | | | SAUSERSTATUS PENDING | | | | | | [...]
--- OUTSIDE RECORDS SUMMARY | ~2019-02-26 | XMS | Encounter Summary ---
Demographics + + + | Address | [address] | | | [place] [address] | + + + | Home Phone [...] Team Providers + +------+ + | Care Computer Operations Specialist Name | Role | Phone | + +------+ + PCP | Unavailable | + +------+ + Encounter Details +--------+ + + + + | Date | Type | Department | Care Team | Description | +--------+ + + + + | 10/21/ | Results | Orthopaedics at | Lloyd Garcia MD | | | 2003 | Only | [facility] [address] | | | | | | [facility] | | | | | | Mailcode: PV430 | | | | | | Physician'yokasta Ocampo | | | | | | [place], [place] | | | | | | [address] | | | | | | [phone] | | | +--------+ + + + [...] + + + | [facility] | [address] | [place] [address] | | | LABORATORY | | | [...] | + + + + + | [facility] DEPARTMENT OF | [address] | [place] [address] | | | PATHOLOGY | [address] | | | + + + + + | [facility] DEPARTMENT OF | [address] | [place] [address] | | | PATHOLOGY | [address] [...] | + + + + + | [facility] DEPARTMENT OF | [address] | [place] [address] | | | PATHOLOGY | [address] | | | + + + + + | [facility] DEPARTMENT OF | [address] [facility] | [place] [address] | | | PATHOLOGY | [address] [...] + | [place] DEPARTMENT OF | [address] [facility] | [place] [address] | | | PATHOLOGY | [address] | | | + + + + + | [facility] DEPARTMENT OF | [address] [facility] | [place] [address] | | | PATHOLOGY | [address] [...] V., | | | | | | M.D.STUDY: Ultrasound of | | | | | [...] | | | | | hip fluid | | | | | | collection. Please | | | | | | evaluate forcurrent | | | | | | status. TECHNIQUE:High | | | | | | [...] | | | | | than prior | | | | | | study. Computed | | | | | | tomography scan of | | | | | | thisarea may provide | | | | | | further clarification of | | | | | | the overall extent of | | | | | | thisfluid collection. | | | | | | These results were | | | | | | communicated to Marybeth, | | | | | | Exchange Operator, | | | | | | attime [...] | | | | | NON-VASULAR | M.D.EXAM: Ultrasound | | | | | RT | over the right hip | | | | | | COMPARISON: October | | | | | | 2003 | | | | | | [...] | | | | | 1. Interval decrease | | | | | | in complex | | | | | | multi-septated fluid | | | | | | collectionover the right | | | | | | hip now measuring 3.1 x | | | | | | 3.6 x 1.3 cm. | | | [...] | + + + + + | [facility] | [address] | [place] [address] | | | LABORATORY | | | [...] | + + + + + | [facility] DEPARTMENT | [address] [facility] | [place] [address] | | | PATHOLOGY | [address] | | | + + + + + | [facility] | [address] [place] [address] | [place] [address] | | | PATHOLOGY | [address] [...] DEPARTMENT OF | [address] | [place] [address] | | | PATHOLOGY | [address] | | | + + + + + | [facility] DEPARTMENT OF | [address] | [place] [address] | | | PATHOLOGY | [address] [...] + + + + | [facility] | [address] [facility] | [place] [address] | | | PATHOLOGY | [address] | | | + + + + + | [facility] | [facility] | [place] [address] | | | PATHOLOGY | [address] [...] + + + | [facility] | [address] | [place] [address] | | | LABORATORY | | | [...] + + + + | [facility] | [address] | [place] [address] | | | PATHOLOGY | [address] | | | + + + + + | [facility] | [address] | [place] [address] | | | PATHOLOGY | [address] [...] | + + + + + | [facility] DEPARTMENT OF | [address] [facility] | [place] [address] | | | PATHOLOGY | [address] | | | + + + + + | [facility] DEPARTMENT OF | [address] | [place] [address] | | | PATHOLOGY | [address] [...] + + + + | [facility] | [address] | [place] [address] | | | PATHOLOGY | [address] | | | + + + + + | [facility] | [address] | [place] [address] | | | PATHOLOGY | [address] [...] + + + | [facility] | [address] | [place] [address] | | | LABORATORY | | | [...] DEPARTMENT OF | [address] | [place] [address] | | | PATHOLOGY | [address] | | | + + + + + | [facility] DEPARTMENT OF | [address] | [place] [address] | | | PATHOLOGY | [address] [...] 11.0 | 4.4 - 11.0 K/cu | [facility] | | | COUNT | | [...] + + + + | [facility] | [facility] | [place] [address] | | | PATHOLOGY | [address] | | | + + + + + | [facility] DEPARTMENT OF | [facility] | [place] [address] | | | PATHOLOGY | [address] [...] PRIMARY | | | | | | RETAIL PRICING COORDINATOR: Joao Wilde | | | | | [...] | | | | | aspirated. A12 Mexican | | | | | | multi purpose drain was | | | | | | then inserted and its | | | | | | lockingpigtail reformed | | | | | | within the | | | | | | collection. The | | | | | | catheter was suturedin | | | | | | place and connected to | | | | | | gravity | | | | | | [...] | | + +---------+ + + | [facility] DEPARTMENT | | | | [...] | | | | | | osteophyte | | | | | | resection. Revision | | | | | | [...] | | | | | | hardware | | | | | | removal. There are | | | | | | some residual | | | | | | [...] | | | | | changes of prior | | | | | | trochanteric osteotomy | | | | | | andhardware | | | | | | [...] | | | | | | treatment | | | | | | osteomyelitis. I see | | | | | | no progressive | | | | | | bonedestruction | | | | | | .3. Lateral soft | | | | | | tissue irregularity and | | | | | | gas consistent with | | | | | [...] | | | | | | osteophyte | | | | | | resection. Revision | | | | | | [...] | | | | | | hardware | | | | | | removal. There are | | | | | | some residual | | | | | | [...] | | | | | changes of prior | | | | | | trochanteric osteotomy | | | | | | andhardware | | | | | | [...] | | | | | | treatment | | | | | | osteomyelitis. I see | | | | | | no progressive | | | | | | bonedestruction | | | | | | .3. Lateral soft | | | | | | tissue irregularity and | | | | | | gas consistent with | | | | | [...] + + + | [facility] | [address] | [place] [address] | | | LABORATORY | | | [...] DEPARTMENT OF | [address] | [place] [address] | | | PATHOLOGY | [address] | | | + + + + + | [facility] DEPARTMENT OF | [address] | [place] [address] | | | PATHOLOGY | [address] [...] | + + + + + | [facility] DEPARTMENT OF | [address] [facility] | [place] [address] | | | PATHOLOGY | [address] | | | + + + + + | [facility] DEPARTMENT OF | [facility] | [place] [address] | | | PATHOLOGY | [address] | | | + + + + + CT PELVIS W CONTRAST (11/11/2003 11:50 AM PST) + + + + + + | Component | Value | Ref Range | Performed | Pathologist | | | | | At | Signature | + + + + + + | CT PELVIS W | Radiologist 1: TRIPP | | | | | LUIS | Raegan HERRERA | | | | | | MAshanti-Radiologist 2: | | | | | | Raegan ALMAGUER, | | | | | | M.DJuan JoseSTUDY: CT scan of | | | | [...] | | | | | | andappearance. Latera | | | | | | l to the proximal femur | | | [...] | | | | | head and | | | | | | acetabulum. Thereis | | | | | | no destruction of the | | | | | | articular cortex and no | | | | | | periostealreaction or | | | | | | focal destruction of the | | | | | | proximal right femur is | | | | | | seen. IMPRESSION: | | | | | | 1. Rim enhancing | | | | | | fluid collection | | | | | | consistent with an | | | | | | abscess inthe proximal | | | | | | right thigh. | | | | | | 2. Heterotopic | | | | | | [...] [facility] | | | | PT INR | | DEPARTMENT | | | | Therapeutic ranges for | | OF | | | | full | | PATHOLOGY | | | | anticoagulation: | | | | | | INR for | | | | | | Venous | | | | | | Thromboembolism | | | | | | | | | | | | (2.0-3.0)INR | | | | | | INR for most | | | | | | patients with mech. | | | | | | valves (2.5-3.5)I | | | | | | NR | | | | + + + + + + + + | Specimen | + + | | + + + + + + + | Performing | Address | City/State/Zipcode | Phone Number | | Organization | | | | + + + + + | [facility] | [address] | [place] [address] | | | PATHOLOGY | [address] | | | + + + + + | [facility] DEPARTMENT OF | [address] | [place] [address] | | | PATHOLOGY | [address] [...] | [facility] | | | | APTT | seconds | DEPARTMENT | | | | Therapeutic | | OF | | | | Range | | PATHOLOGY | | | | | | | | | | (75-120)sec | | | | | | Hepa | | | | | | rin levels of 0.35-0.7 | | | | | | U/mL | | | | + + + + + + + + | Specimen | + + | | + + + + + + + | Performing | Address | City/State/Zipcode | Phone Number | | Organization | | | | + + + + + | [facility] | [address] | [place] [address] | | | PATHOLOGY | [address] | | | + + + + + | [facility] | [facility] [address] | [place] [address] | | | PATHOLOGY | [address] [...] | | | | | | | proximalfemur. Increa | | | | | | sed cortical destruction | | | | | | is noted around the | | | | | | screwtracts in the | | | | | | proximal femoral | | | | | | diaphysis. Medial | | | | | | joint spacenarrowing and | | | | | | spurring is present, | | | | | | right greater than left. | | | | | | IMPRESSION: | | | | | | 1. Marked increase in | | | | | [...] | | + +---------+ + + | [facility] DEPARTMENT OF | | | [...] | | | | | | femoraldiaphysis. Thi | | | | | | s is in the location of | | [...] | | + +---------+ + + | [facility] DEPARTMENT OF | | | [...] + | [facility] DEPARTMENT OF | [address] [facility] | [place] [address] | | | PATHOLOGY | [address] | | | + + + + + | [facility] DEPARTMENT OF | [address] [facility] | [place] [address] | | | PATHOLOGY | [address] [...] | + + + + + | [facility] DEPARTMENT | [address] [facility] | [place] [address] | | | PATHOLOGY | [address] | | | + + + + + | [facility] DEPARTMENT OF | [address] [facility] | [place] [address] | | | PATHOLOGY | [address] [...] + + + + | [facility] | [address] | [place] [address] | | | PATHOLOGY | [address] | | | + + + + + | [facility] | [address] [facility] | [place] [address] | | | PATHOLOGY | [address] [...] | + + + + + | [facility] | [address] | [place] [address] | | | LABORATORY | | | | + + + + + documented in this encounter Visit Diagnoses Not on filedocumented in this encounter"
--- OUTSIDE RECORDS SUMMARY | ~2019-02-26 | XMS | Encounter Summary ---
Demographics + + + | Address | [address] | | | [place] [address] | + + + | Home Phone [...] Team Providers + +------+ + | Care Edge Dyer Name | Role | Phone | + [...] as of this encounter Progress Notes Interface, Paperhanger Supervisor In - 06/19/2006 1:01 AM PDT [place] [facility] and [place] [address], [place] [address] FAX Department of Orthopaedics, [facility] [id number] October 15, 2001 Lloyd Garcia M.D. Department of Orthopedics and Rehabilitation/[facility] [id number] RE: SHELBY GALDAMEZ MR #: [id number] DOS: 10/15/[address] Desai: Thank you [...] Sincerely, Kalyan Wu M.D. TE / HS [id number] / [id number] / [id number] / [id number] cc: Chan Krsihna M.D. Department of Orthopedics and Rehabilitation/[facility] OP-31 Helio Noland M.D. [address] [place], [place] [address]Okmhuwchlpihhn signed by Interface, Paperhanger Supervisor In at 06/19/2006 1: 01 AM PDTdocumented in this encounter Plan of Treatment Not on filedocumented as of this encounter Visit Diagnoses Not on filedocumented in this encounter"
--- OUTSIDE RECORDS SUMMARY | ~2019-02-26 | XMS | Encounter Summary ---
Demographics + + + | Address | [address] | | | [place] [address] | + + + | Home Phone [...] Team Providers + +------+ + | Care Structural Engineering Drafting Officer Name | Role | Phone | + +------+ + PCP | Unavailable | + +------+ + Encounter Details +--------+ + + + + | Date | Type | Department | Care Team | Description | +--------+ + + + + | 09/05/ | Hospital | LAB BLOOD BANK | | | | 2007 | Encounter | [address] | | | | | | [facility] | | | | | | [place], [place] | | | | | | [address] | | | +--------+ + + + [...]
--- OUTSIDE RECORDS SUMMARY | ~2019-02-26 | XMS | Encounter Summary ---
Demographics + + + | Address | [address] | | | [place] [address] | + + + | Home Phone [...] Providers + +------+ + | Care Human Resource Adviser Name | Role | Phone | + [...] AND | | 2008 | | [facility] [address] | [address] | drainage | | | | [facility] [address] | [facility] [address] | | | | | Mailcode: PV430 | [place], [place] | | | | | Physician[facility] | [address] | | | | | [place], [place] | [phone] | | | | | [address] | | | | | | [phone] | | | +--------+ + + + [...]
--- OUTSIDE RECORDS SUMMARY | ~2019-02-26 | XMS | Encounter Summary ---
Demographics + + + | Address | [address] | | | [place] [address] | + + + | Home Phone [...] Team Providers + +------+ + | Care Asp Net C Developer Name | Role | Phone | + +------+ + | Yuki Pantoja MD | PCP | | + +------+ + Encounter Details +--------+ + + + + | Date | Type | Department | Care Team | Description | +--------+ + + + + | 06/21/ | Transition Of Care Specialist | Orthopaedics at | Kalyan Colby MD | Osteoarthritis of | | 2008 | | [facility] [address] | [address] | Hip (Primary Dx) | | | | [facility] | [facility] [address] | | | | | Mailcode: PV430 | [place], [place] | | | | | [facility] | [address] | | | | | [place], [place] | [phone] | | | | | [address] | | | | | | [phone] | | | +--------+ + + + [...] | | | | | VIEWS | [id number] Name | | | | | RIGHT W/ | : SHELBY GALDAMEZ | | | | | PELVIS 1 | Birthday: | | | | | VIEW | 1960 Sex: | | | | | | F Alias:Patient | | | | | | Location: [id number]: | | | | | | Outpatient [...] # | | | | | | [id number]:PELVIS | | | | | | ONE [...]
--- OUTSIDE RECORDS SUMMARY | ~2019-02-26 | XMS | Encounter Summary ---
Demographics + + + | Address | [address] | | | [place] [address] | + + + | Home Phone [...] Team Providers + +------+ + | Care Parachute Officer Name | Role | Phone | + +------+ + | Marta Jenkins CLEARANCE COORDINATOR | PCP | | + +------+ + Encounter Details +--------+ + + + + | Date | Type | Department | Care Team | Description | +--------+ + + + + | 12/30/ | Ancillary | Registration [address] | [address]ji [address], | | | 2006 | Registratio | [address] | [address] | | | | n | [facility] Mailcode: | [address] | | | | | [address] [place], [place] | [place], [place] | | | | | [address] | [address] | | | | | [phone] | [phone] | | | | | | | [...]
--- OUTSIDE RECORDS SUMMARY | ~2019-02-26 | XMS | Encounter Summary ---
Demographics + + + | Address | [address] | | | [place] [address] | + + + | Home Phone [...] Providers + +------+ + | Care Telecommunications Linesworker Name | Role | Phone | + [...] | Kalyan Barrientos MD | [facility] [address] | | | | | Back pain | [address] | [address] | | | | | Procedures | [address] | [address] | | | | | CT INJ | [address] | Road | | | | | SACROILIAC | [place], [place] | Mailcode: | | | | | JOINT | [address] | [address] [facility] | | | | | W/NEEDLE | Phone: | Hospital | | | | | PLCMT | [phone] | [place], [place] | | | | | | Fax: | [address] | | | | | | [phone] | Phone: | | | | | | | [phone] | | | | | | | Fax: | | | | | | | [phone] | +--------+--------+ + + + + Reason [...] | | | | | | | [address] | | | | | | | [facility] | | | | | | | Rd [place], | | | | | | | [place] | | | | | | | [address] | | | | | | | Phone: | | | | | | | [phone] | | | | | | | Fax: | | | | | | | [phone] | +--------+--------+ + + + + Encounter Details +--------+---------+ + + + | Date | Type | Department | Care Team | Description | +--------+---------+ + + + | 07/07/ | Office | Orthopaedics at | Kalyan Arias MD | Hip Replacement; | | 2008 | Visit | [facility] [address] | [address] | Hip Pain; | | | | [facility] [address] | [facility] | Back Pain | | | | Mailcode: PV430 | [place], [place] | | | | | [facility] | [address] | | | | | [place], [place] | [phone] | | | | | [address] | | | | | | [phone] | | | +--------+---------+ + + + [...] | | | JOINT | DATA: Right | | | | | W/NEEDLE | sacroiliac joint pain. | | | | | PLCMT | TECHNIQUE: Verbal and | | | | | | written informed | | | | | | consent was obtained | | | | | | from thepatient, who was | | | | | | then positioned prone | | | | | | on the CT table. Team | | | | | | pausewas performed with | | | | | | the support | | | | | | staff. Sinter Machine Operator imaging | | | | | | was acquired ofthe | | | | | [...] | | | | | usual sterile | | | | | | fashion. Using a | | | | | [...] | | | | | injectedinto the | | | | | | joint. Using a | | | | | | separate 3 cc syringe, | | | | | | approximately 1.5 | | | | | | ccbupivicaine (5 mg/cc) | | | | | | was injected into the | | | | | | joint. | | | | | | Ronradiology | | | | | | resident, performed the | | | | | | procedure under the | | | | | | directsupervision of | | | | | | Ethel radiology | | | | | | staff. The patient | | | | | | tolerated theprocedure | | | | | | well without immediate | | | | | | complication. | | | | | | FINDINGS: CT images | | | | | | confirms intra-articular | | | | | | position of the | | | | | | needletip in the right | | | | | | sacroiliac joint. | | | | | [...] DIOR, | | | | | | MAshantiReviewer: MARIAJOSE HILL, | | | | | | M.DJuan Jose STATUS FINAL / | | | | | | Dr. MARIAJOSE RIVERA | | | | | | PENDING FINAL APPROVAL / | | | | | | Dr. PEPE SULTANA | | | | | | PRELIMINARY - UNSIGNED | | | | | | / Dr. PEPE DOIR | | | | + + + + + + + + | Specimen | + + | | + + + +---------+ + + | Performing | Address | City/State/Zipcode | Phone Number | | Organization | | | | + +---------+ + + | [facility] DEPARTMENT OF | | | [...]
--- OUTSIDE RECORDS SUMMARY | ~2019-02-26 | XMS | Clinical Summary ---
Demographics + + + | Address | [address] | | | [place] [address] | + + + | Home Phone [...] Team Providers + +------+ + | Care Consulting Services Associate Name | Role | Phone | + +------+ + | Marta Jenkins VOCATIONAL GUIDANCE COUNSELOR | PP | | + +------+ + Source Comments LION is fully live on both [facility] Ambulatory and [facility] InPatient.[facility] Allergies + + + + + [...] | | + + + +---------+------+------+-------+ | [place]-3 Fatty | Take by mouth. | | [...] | | | + +--------+ +--------+-------+---------+--------+ | DIRECTOR BIOMEDICAL ENGINEERING MEDICAID | DIRECTOR BIOMEDICAL ENGINEERING | [id number] | 06/01/20 | | | [...] gigi | | | 7 (Home) | [id number] | + +--------+ +--------+ + + | Shelby Galdamez | Third | Self | [birth year] | | [address] # | | | [employer] | | 1960 | [phone] | [address] [place] | | | Liabil | | | 7 (Home) | [id number] | | | ity | | | | | + +--------+ +--------+ + + Advance Directives + + + + + | Type | Date Recorded | Patient | Explanation | | | | Mortgage Loan Reviewer | | + + + + + | Advance | | | | | Directives and | | | | | Living Will | | | | + + + + + | Power of | | | | | Transcription | | | | + + + [...]
--- OUTSIDE RECORDS SUMMARY | ~2019-02-26 | XMS | Encounter Summary ---
Demographics + + + | Address | [address] | | | [place] [address] | + + + | Home Phone [...] + + + | Author | [facility] | + + + | Organization | [facility] | + + + [...] Providers + +------+ + | Care Manager Utilization Name | Role | Phone | + [...] | | | unspecified | | Rd [place], | | | | | whether | | [place] | | | | | generalized | | [address] | | | | | or | | Phone: | | | | | localized, | | [phone] | | | | | pelvic | | Fax: | | | | | region and | | [phone] | | | | | thigh Pain [...] [address] | [address] | inflammatory | | | | [facility] | [facility] | reaction due to | | | | Mailcode: PV430 | [place], [place] | internal joint | | | | [facility] | [address] | prosthesis (HCC) | | | | [place], [place] | [phone] | (Primary Dx) | | | | [address] | | | | | | [phone] | | | +--------+---------+ + + + [...] has been indic ated for [facility] in [place], but they want the ok from [place]. [...] prn f/u here as she lives near [place]. d ocumented in this encounter Plan of [...] fragment | | | | | | is unchanged.Dense | | | | | | surgical material about | | | | | | the proximal femoral | | | | | | diaphysis isunchanged. | | | | | | The other bones of the | | | | | | pelvis are | | | | | | intact. The sacrum is | | | | | [...] + | Transcriptions | + + | Sophy, Faculty - 11/06/2011 2:18 PM PST | + [...]
--- OUTSIDE RECORDS SUMMARY | ~2019-02-26 | XMS | Encounter Summary ---
Demographics + + + | Address | [address] | | | [place] [address] | + + + | Home Phone [...] Team Providers + +------+ + | Care Android Developer Name | Role | Phone | [...] | | | | JOSE | [address] [facility] | | | | | | MEDICAL | [facility] | | | | | | CLINIC [address] | [address] [place], | | | | | | [address] | [place] | | | | | | [place], [place] | [address] | | | | | | [address] | Phone: | | | | | | | [phone] | | | | | | | Fax: | | | | | | | [phone] | +--------+--------+ + + + + Encounter [...] | Hip; Postoperative | | | | [facility] [address] | [facility] [address] | Heterotopic | | | | Mailcode: PV430 | [place], [place] | Calcification; Back | | | | [facility] | [address] | Pain; Hip Pain | | | | [place], [place] | [phone] | | | | | [address] | | | | | | [phone] | | | +--------+---------+ + + + [...] and plan of care. KALYAN COLBY MD [facility] [address] [facility] [place] [phone] aRaul kasper - 8 12:04 PM PDT [...] w ound vac placement were undertaken with half-way antibiotics until the infection cleared. She now [...]
--- OUTSIDE RECORDS SUMMARY | ~2019-02-26 | XMS | Encounter Summary ---
Demographics + + + | Address | [address] | | | [place] [address] | + + + | Home Phone [...] 2003 | Only | Reconstructive | [address] | | | | | Surgery [address] | [place], [place] | | | | | [address] | [address] | | | | | Road Mailcode: | [phone] | | | | | [address] Physicians | | | | | | [place], | | | | | | [place] [address] | | | | | | [phone] | | | +--------+ + + + [...] | | | | | NON-VASULAR | M.DJuan JoseULTRASOUND OVER | | | | | RT | RIGHT HIP | | | | | | AREA: 11/03/2003 D | | | | | | ictated 11/03/2003 | | | | | | CLINICAL [...] | | | | | | linear | | | | | | transducer. Along the | | | | | | surgical line, there is | | | | [...] | | | | the fluid collection | | | | | | is. Tissues in this | | | | | | area arevery echogenic | | | | | | in the reddened area | | | | | | with no discrete fluid | | | | | | collection. The fluid | | | | | | collection tracks along | | | | | | the fascial planes and | | | | | | is highlyseptated and | | | | | | rather | | | | | | thick-appearing. It | | | | | | measures approximately | | | | | | 10 cmlaterally and at | | | | | | its deepest point, | | | | | [...] | | | | | | multiplyloculated. Th | | | | | | is is rather lateral to | | | | | | the area of the skin | | | | | | that ismost | | | | | | reddened. Information | | | | | | was passed | | | | | [...] | | + +---------+ + + | [facility] DEPARTMENT OF | | | [...] | | | | | | M.D.RIGHT | | | | | | HIP: 11/03/2003 Di | | | | | | ctated 11/03/2003 | | | | | | TECHNIQUE: Two views. | | | | | | COMPARISON: 10/21/03. | | | | | | FINDINGS: The patient | | | | | | is status post removal | | | | | | of greater | | | | | [...] | | | | post removal of | | | | | | hardware from proximal | | | | | | right femur withevidence | | | | | | of healed greater | | | | | | trochanteric | | | | | | osteotomy. There is | | | | | | evidenceof greater | | | | | | definition of the cortex | | | | | | of the greater | | | | | | trochanter and | | | | | [...] | + + + + + | [facility] | [address] | [place] [address] | | | LABORATORY | | | [...] + + + + | [facility] | [address] | [place] [address] | | | PATHOLOGY | [address] | | | + + + + + | [facility] | [facility] | [place] [address] | | | PATHOLOGY | [address] [...] DEPARTMENT OF | [address] | [place] [address] | | | PATHOLOGY | [address] | | | + + + + + | [facility] DEPARTMENT OF | [address] | [place] [address] | | | PATHOLOGY | [address] [...] [facility] DEPARTMENT OF | [address] | [place] [address] | | | PATHOLOGY | [address] | | | + + + + + | [facility] DEPARTMENT OF | [address] | [place] [address] | | | PATHOLOGY | [address] | | | + + + + + documented in this encounter Visit Diagnoses Not on filedocumented in this encounter
--- OUTSIDE RECORDS SUMMARY | ~2019-02-26 | XMS | Encounter Summary ---
Demographics + + + | Address | [address] | | | [place] [address] | + + + | Home Phone [...] Team Providers + +------+ + | Care Ranch Hand Livestock Name | Role | Phone | + [...] [address] | | | | | [facility] | [facility] | | | | | Mailcode: PV430 | [place], [place] | | | | | [facility] | [address] | | | | | [place], [place] | [phone] | | | | | [address] | | | | | | [phone] | | | +--------+ + + + [...]
--- OUTSIDE RECORDS SUMMARY | ~2019-02-26 | XMS | Encounter Summary ---
Demographics + + + | Address | [address] | | | [place] [address] | + + + | Home Phone [...] Team Providers + +------+ + | Care Patient Representative Name | Role | Phone | + +------+ + | Marta Jenkins AUTOMOTIVE TECHNOLOGY INSTRUCTOR | PCP | | + +------+ + Encounter Details +--------+ + + + + | Date | Type | Department | Care Team | Description | +--------+ + + + + | 11/19/ | Documentati | Digestive Health | Clinic, Surgery | | | 2019 | on | [place] [facility] [address] | | | | | | [address] | | | | | | Mailcode: [place] | | | | | | for Health and | | | | | | Healing, Building [address] | | | | | | [facility] [place] | | | | | | [address] | | | | | | [phone] | | | +--------+ + + + [...]
--- OUTSIDE RECORDS SUMMARY | ~2019-02-26 | XMS | Encounter Summary ---
Demographics + + + | Address | [address] | | | [place] [address] | + + + | Home Phone [...] + + + | Author | [facility] | + + + | Organization | [facility] | + + + | [...] Team Providers + +------+ + | Care Office Support Assistant Name | Role | Phone | [...] | | | 2009 | | [facility] [address] | [address] | | | | | [facility] | [facility] | | | | | Mailcode: PV430 | [place], [place] | | | | | [facility] | [address] | | | | | [place], [place] | [phone] | | | | | [address] | | | | | | [phone] | | | +--------+ + + + [...]
--- OUTSIDE RECORDS SUMMARY | ~2019-02-26 | XMS | Encounter Summary ---
Demographics + + + | Address | [address] | | | [place] [address] | + + + | Home Phone | | + + + | Preferred Language | Unknown | + + + | Marital Status | Single | + + + | Sikh Affiliation | Unknown | + + + | Race | Unknown | + + + | Ethnic Group | Unknown | + + + Author + + + | Author | [employer] | + + + | Organization | [facility] [employer] [facility] | + + + | Address | Unknown | + + + | Phone | Unavailable | + + + Support + + +---------+ + | Name | Relationship | Address | Phone | + + +---------+ + | Kristel Teresa | ECON | Unknown | | + + +---------+ + Care Team Providers + +------+ + | Care Infant Lead Teacher Name | Role | Phone | [...] + + | 02/25/ | Telephone | Nancy | Brenna Andrade MA | Other | | 2019 | | [facility] | | | | | | [address] | | | | | | [place] | | | | | | [address] | | | | | | [phone] | | | +--------+ + + + [...] SANTA | | | | | | [id number] | | | | | | | | +--------+---------+ + + + as of this encounter Visit Diagnoses Not on filein this encounter"
--- OUTSIDE RECORDS SUMMARY | ~2019-02-26 | XMS | Encounter Summary ---
Demographics + + + | Address | [address] | | | [place] [address] | + + + | Home Phone [...] Team Providers + +------+ + | Care Payroll Secretary Name | Role | Phone | [...] as of this encounter Progress Notes Interface, Crop Specialist In - 09/08/2006 1:11 AM PSTCLINIC DATE: [...] evaluation. Lloyd Garcia MD / [id number] / [id number] / [id number] / cc: Matthew Garcia MD [address] [place], [place] [id number] signed by Interface, Crop Specialist In at 09/08/2006 1:11 AM PSTdocumented in this encounter Plan of Treatment Not on filedocumented as of this encounter Visit Diagnoses Not on filedocumented in this encounter"
--- OUTSIDE RECORDS SUMMARY | ~2019-02-26 | XMS | Encounter Summary ---
Demographics + + + | Address | [address] | | | [place] [address] | + + + | Home Phone [...] Providers + +------+ + | Care Nurse Care Manager Name | Role | Phone [...] [address] | | | | | [facility] | [facility], | | | | | Mailcode: PV430 | [place] [address] | | | | | Physician[facility] | | | | | | [place], [place] | | | | | | [address] | | | | | | [phone] | | | +--------+ + + + [...]
--- OUTSIDE RECORDS SUMMARY | ~2019-02-26 | XMS | Encounter Summary ---
Demographics + + + | Address | [address] | | | [place] [address] | + + + | Home Phone [...] Team Providers + +------+ + | Care Waste Elimination Name | Role | Phone | + [...] | | | | [address] | [facility] | | | | | (sacroiliac) | [facility] | Road | | | | | joint | Rd | Mailcode: | | | | | inflammation | [place], [place] | [address] [facility] | | | | | ([facility]) | [address] | Hospital | | | | | Procedures | | [place], [place] | | | | | CT INJ | | | | | | | SACROILIAC | | Phone: | | | | | JOINT | | [phone] | | | | | [address]LE | | Fax: | | | | | PLCMT | | [phone] | +--------+--------+ + + + + Diagnostic [...] | | | | [address] | [facility] | | | | | (sacroiliac) | [facility] | Road | | | | | joint | Rd | Mailcode: | | | | | inflammation | [place], [place] | [address] [facility] | | | | | (HCC) | | Hospital | | | | | Procedures | | [place], [place] | | | | | CT INJ | | | | | | | SACROILIAC | | Phone: | | | | | JOINT | | [phone] | | | | | W/[address]LE | | Fax: | | | | | PLCMT | | [phone] | +--------+--------+ + + + + Encounter Details +--------+ + + + + | Date | Type | Department | Care Team | Description | +--------+ + + + + | 03/22/ | Hospital | Diagnostic Imaging | | | | 2009 | Encounter | Services at [facility] | | | | | | [address] | | | | | | [facility] | | | | | | Mailcode: [address] [facility] | | | | | | [facility] | | | | | | [place] [address] | | | | | | [phone] | | | +--------+ + + + [...] | + + + +---------+--------+ + | [place]-3 Fatty | Take by mouth. | | [...] None. | | | | | | Corduroy Cutting Supervisor: Dr. Moss, | | | | | | vice president of contracts. | | | | | | Cocoa Powder Mixer Operator: | | | | | | Dr. [...] | | | | home support worker. Head Piece Assembler | | | | | | imaging [...]
--- OUTSIDE RECORDS SUMMARY | ~2019-02-26 | XMS | Encounter Summary ---
Demographics + + + | Address | [address] | | | [place] [address] | + + + | Home Phone [...] Providers + +------+ + | Care Director Special Education Name | Role | Phone | [...] | 2019 | Encounter | Lab at [facility] [address] | [address] [facility] | | | | | [facility] for | [facility] | | | | | Health and Healing, | [employer], [place] | | | | | [address] [place] [address] | [address] | | | | | [place], [place] | [phone] | | | | | [address] | | | | | | [phone] | | | +--------+ + + + [...] + + + +---------+ + + | [place]-3 Fatty | Take by mouth. | | [...]
--- OUTSIDE RECORDS SUMMARY | ~2019-02-26 | XMS | Encounter Summary ---
Demographics + + + | Address | [address] | | | [place] [address] | + + + | Home Phone [...] Team Providers + +------+ + | Care Houseman Name | Role | Phone | + +------+ + | Travis Mcginnis MD | PCP | Unavailable | + +------+ + Encounter Details +--------+ + + + + | Date | Type | Department | Care Team | Description | +--------+ + + + + | 10/02/ | Hospital | Radiology/Imaging | Royce Durand, | | | 2019 | Encounter | Lab at [facility] [address] | [address] [facility] | | | | | [facility] for | [facility] | | | | | Health and Healing, | [place], [place] | | | | | [address] [place] [address] | [address] | | | | | [place], [place] | [phone] | | | | | [address] | | | | | | [phone] | | | +--------+ + + + [...] + + + +---------+ + + | [place]-3 Fatty | Take by mouth. | | [...]
--- OUTSIDE RECORDS SUMMARY | ~2019-02-26 | XMS | Encounter Summary ---
Demographics + + + | Address | [address] | | | [place] [address] | + + + | Home Phone [...] Team Providers + +------+ + | Care Social Service Worker Name | Role | Phone | + +------+ + PCP | Unavailable | + +------+ + Encounter Details +--------+ + + + + | Date | Type | Department | Care Team | Description | +--------+ + + + + | 03/19/ | Results | Registration [address] | Other, Faculty | | | 2007 | Only | [address] | [phone] | | | | | [facility] Mailcode: | | | | | | [address] [place], [place] | | | | | | [address] | | | | | | [phone] | | | +--------+ + + + [...]
--- OUTSIDE RECORDS SUMMARY | ~2019-02-26 | XMS | Encounter Summary ---
Demographics + + + | Address | [address] | | | [place] [address] | + + + | Home Phone [...] + +------+ + | Care Information Technology Audit Manager Name | Role | Phone | + +------+ + PCP | Unavailable | + +------+ + Encounter Details +--------+ + + + + | Date | Type | Department | Care Team | Description | +--------+ + + + + | 06/24/ | Results | | Other, Faculty | | | 2000 | Only | | [phone] | | +--------+ + + + + [...] | | | | | | THERAPEUTIC | | | | | | INJECTION: 06/24/00 | | | | | | DICTATED: 06/25/00 | | | | | | INDICATION: The | | | | | | patient is a 40-year-old | | | | | | female with | | | | | [...] Theright | | | | | | hip was marked under | | | | [...] | | | | | | most | | | | | | pronouncedmedially. T | | | | | | here is an osteophytic | | | | | | collar of the femoral | | | | | | head. Thereis | | | | | | associated thinning of | | | | | | the articular cartilage | | | | | | of the medialacetabulum | | | | | | and medial femoral | | | | | | head. The joint | | | | | | capsule held a lowvolume | | | | | | approximately 8 to 8.5 | | | | | | cc of fluid. There | | | | | | was a limited rangeof | | | | | | motion of the | | | | | | hip. Though the | | | | | | patient stated a | | | | | | therapeuticresponse, the | | | | | | limited range of motion | | | | | | continued probably due | | | | | | to theosteophytic | | | | | | collar. The patient | | | | | | stated her pre-procedure | | | | | | pain scalewas | | | | | | 4-5/10. After the | | | | | | procedure the patient | | | | | | ambulated and stated | | | | | | herpain scale was | | | | | | 0/10. The patient was | | | | | | informed to monitor her | | | | | | symptomsand report | | | | | | these findings to her | | | | | | orthopedic | | | | | | surgeon. The | | | | | | patienttolerated the | | | | | | procedure well without | | | | | | immediate complications. | | | | | | IMPRESSION: | | | | | | 1. Advanced | | | | | | degenerative changes of | | | | | | the right hip with | | | | | | thinning ofthe medial | | | | | | femoral and acetabular | | | | | | articular cartilage. | | | | | | 2. Low volume joint | | | | | | capsule consistent with | | | | | | adhesive capsulitis. | | | | | | 3. Limited range of | | | | | | motion which may be due | | | | | | to the | | | | | | osteophyticcollar. | | | | | | 4. Therapeutic | | | | | | response was | | | | | | noted. [...] | | + +---------+ + + | [facility] DEPARTMENT OF | | | | | RADIOLOGY | | | | + +---------+ + + documented in this encounter Visit Diagnoses Not on filedocumented in this encounter"
--- OUTSIDE RECORDS SUMMARY | ~2019-02-26 | XMS | Encounter Summary ---
Demographics + + + | Address | [address] | | | [place] [address] | + + + | Home Phone [...] + + + | Author | [facility] | + + + | Organization | [facility] | + + + | [...] Team Providers + +------+ + | Care Oxyhydrogen Welder Name | Role | Phone | [...] as of this encounter Progress Notes Interface, Compression Molding Machine Operator In - 04/01/2006 3:12 AM PDTCLINIC DATE: [...] a total hip replacement. Lloyd Garcia M.D. Correction [facility] / [id number] / [id number] / [id number] / cc: Ninfa Guillen M.D. [address] [id number] signed by Interface, Compression Molding Machine Operator In at 04/01/2006 3:1 2 AM PDTdocumented in this encounter Plan of Treatment Not on filedocumented as of this encounter Visit Diagnoses Not on filedocumented in this encounter"
--- OUTSIDE RECORDS SUMMARY | ~2019-02-26 | XMS | Encounter Summary ---
Demographics + + + | Address | [address] | | | [place] [address] | + + + | Home Phone [...] Providers + +------+ + | Care Manager Radiation Name | Role | Phone | + [...] [facility] [address] | [address] [facility] | | | | | [facility] | [facility] | | | | | Mailcode: PV430 | [place], [place] | | | | | [facility] | [address] | | | | | [place], [place] | [phone] | | | | | [address] | | | | | | [phone] | | | +--------+ + + + [...]
--- OUTSIDE RECORDS SUMMARY | ~2019-02-26 | XMS | Clinical Summary ---
Demographics + + + | Address | [address] | | | [place] [address] | + + + | Home Phone [...] Providers + +------+ + | Care Assistant Offset Press Operator Name | Role | Phone | + +------+ + | Erci Krishna MD | PP | | + [...] abdominal pain. Seen Hood Sommer | | [facility] Colonoscopy 11/02/08diverticulosis sigmoid and | | [...] Right: | YAMILA | | 08/15/ | [id number] | | - [id number]: Qty: 1 | | | [employer] | | 2018 | / | | on 11/25/2016 by Rustam Schmid | | Ureter | - YAMILA | | | /[id number] | | MD Cordelia | | | [...] | [employer] | [employer] | [id number] | | [phone] | | [employer] | [...] gigi | | | 7 (Home) | [address] | + +--------+ +--------+ + + Advance Directives Patient has advance care planning documents, and code status on file. For more information, please contact:[facility] and [facility] [place] [address] + + + + + | Code Status | Date | Date | Comments | | | Activated | Inactivated | | + + + + + | Full Code | 11/25/2016 | 11/25/2016 | | | | 12:09 | 17:28 | | + + + + +
--- OUTSIDE RECORDS SUMMARY | ~2019-02-26 | XMS | Encounter Summary ---
Demographics + + + | Address | [address] | | | [place] [address] | + + + | Home Phone [...] Providers + +------+ + | Care Plastic Surgery Assistant Name | Role | Phone | [...] as of this encounter Progress Notes Interface, Pencils Washer In - 07/18/2006 3:04 AM PDTCLINIC DATE: [...] further treatment options. Brigette Lim P.A.-C / [id number] / [id number] / [id number] / Tdocumented in this encounter Plan of Treatment Not on filedocumented as of this encounter Visit Diagnoses Not on filedocumented in this encounter"
--- OUTSIDE RECORDS SUMMARY | ~2019-02-26 | XMS | Encounter Summary ---
Demographics + + + | Address | [address] | | | [place] [address] | + + + | Home Phone [...] Author + + + | Author | [facility] | + + + | Organization | [facility] | + + + | Address [...] + +------+ + | Care Aircraft Engine Technician Name | Role | Phone | [...] as of this encounter Progress Notes Interface, Family Mediator In - 04/28/2005 5:10 PM PDTClinic Date: [...] has been at her friend's house in [facility] and has been receiving IV antibiotics [...] Benson Boone M.D. Lloyd Garcia M.D. / [id number] / [id number] / [id number] / [id number] Tdocumented in this encounter Plan of Treatment Not on filedocumented as of this encounter Visit Diagnoses Not on filedocumented in this encounter"
--- OUTSIDE RECORDS SUMMARY | ~2019-02-26 | XMS | Encounter Summary ---
Demographics + + + | Address | [address] | | | [place] [address] | + + + | Home Phone [...] Team Providers + +------+ + | Care Licensed Prosthetist Name | Role | Phone | + [...] / | | Quintin I | [address] | | | | Orthopedics | Osteoarthros | [place] | [address] | | | | | is, | MEDICAL | [address] | | | | | unspecified | CLINIC PO | Mailcode: | | | | | whether | [address] | [address] | | | | | generalized | [place], [place] | Physician's | | | | | or | [address] | Pavilion | | | | | localized, | | [place], [place] | | | | | pelvic | | [address] | | | | | region and | | Phone: | | | | | thigh | | [phone] | | | | | Intervertebr | | Fax: | | | | | al lumbar | | [phone] | | | | | disc | [...] [address] [address] | | Hip; Hip Pain | | | | [facility] | | | | | | Mailcode: [address]430 | | | | | | Physician'yokasta Ocampo | | | | | | [place], [place] | | | | | | [address] | | | | | | [phone] | | | +--------+---------+ + + + [...] tenderness. Severe gluteus medius limp. Most recent [facility] Laboratory Studies: Normal C-reactive protein at 0.5 (02/10/04), normal [facility] te cell count at 9.4 & [...] this done around the time of the [place]-up so she can enjoy shopp ing. [...] hip arthroplasty if needed. Lloyd Garcia M.D. Tax Investigator, Orthopedics and Rehabilitation documented in this encount [...] | | | | | RIGHT HIP | | | | | | COMPARISON: 05/23/06 | | | | | | and prior arthrogram | | | | | | 12/18/05 | | | | | | [...] | | | | local anesthesia. A | | | | | | 22 gaugespinal needle | | | | | | was placed into the | | | | | | joint from | | | | | | [...] was | | | | | | removed. Nocomplicati | | | | | | ons were present. | | | | | | FINDINGS: Chronic | | | | | | postsurgical changes and | | | | | | heterotopic bone are | | | | | | unchanged | | | | | | inappearance. There | | | | | | is chronic degenerative | | | | | [...] | | | | cc).2. The patient | | | | | | did not not report any | | | [...] + + | Performing | Address | City[facility]State[facility] | Phone Number | | Organization | [...] HERRERA, | | | | | | Malcom-Radiologist 2: | | | | | | CHAO MATTSON: | | | | | | Right [...] | | | | | intact. The | | | | | | sacroiliac joints are | | | | | | maintained. IMPRESSION: | | | | | | 1. Advanced degenerative | | | | | | disease of the right | | | | | | hip. 2. 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 | | | | + + [...]
--- OUTSIDE RECORDS SUMMARY | ~2019-02-26 | XMS | Encounter Summary ---
Demographics + + + | Address | [address] | | | [place] [address] | + + + | Home Phone [...] Providers + +------+ + | Care Employee Communications Manager Name | Role | Phone | [...] Bergman | | | | | | [facility] | | | | | | [place], [place] | | | | | | [address] | | | +--------+ + + + [...]
--- OUTSIDE RECORDS SUMMARY | ~2019-02-26 | XMS | Encounter Summary ---
Demographics + + + | Address | [address] | | | [place] [address] | + + + | Home Phone [...] Team Providers + +------+ + | Care Respiratory Therapy Technician Name | Role | Phone | [...] as of this encounter Progress Notes Interface, Web Pressman In - 08/22/2006 5:13 AM PSTCLINIC DATE: [...] Valium. PHYSICAL EXAMINATION: She ambulates with a eajzgxzk-ij-blsnnm leg coxalgic gait leaning over the right [...] that they are appropriate. Lloyd Garcia MD Interstate Planner Department of Orthopaedics / [id number] / [id number] / [id number] / [id number] C: 01/19/2000 jerman cc: Helio Noland MD [place], [place] [address] [place] [address] [id number] signed by Interface, Web Pressman In at 08/22/2006 5:13 AM PSTdocumented in this encounter Plan of Treatment Not on filedocumented as of this encounter Visit Diagnoses Not on filedocumented in this encounter"
--- OUTSIDE RECORDS SUMMARY | ~2019-02-26 | XMS | Encounter Summary ---
Demographics + + + | Address | [address] | | | [place] [address] | + + + | Home Phone [...] Team Providers + +------+ + | Care Chemical Waste Management Technician Name | Role | Phone | + +------+ + | No Pcp Per Patient | PCP | Unavailable | + +------+ + Encounter Details +--------+ + + + + | Date | Type | Department | Care Team | Description | +--------+ + + + + | 10/13/ | Governor Assembler | Orthopaedics at | Tesfaye Saenz | Osteoarthritis of | | 2008 | | [address] [address] Evangelista PA-C | Hip (Primary Dx) | | | | [facility] | | | | | | Mailcode: [address]430 | | | | | | Pat Ocampo | | | | | | [place], [place] | | | | | | [address] | | | | | | [phone] | | | +--------+ + + + [...] | | VIEW | HIP 2 VIEWS | | | | | | RIGHT 10/14/08 | | | | | | 10:03:00CLINICAL DATA: | | | | | | Follow-up | | | | | | hardwareCOMPARISON: | | | | | | 09/06/08FINDINGS:The | | | | | | noncemented right hip | | | | | | arthroplasty remains in | | | | | | place in | | | | | | unchangedalignment. M | | | | | | ultiple cerclage wires | | | | | | and a greater | | | | | | trochanteric plateremain | | | | | | in place. The | | | | | | greater trochanteric | | | | | | fragment has | | | | | | migratedposteriorly and | | | | | | superiorly and is no | | | | | | longer contained within | | | | | | thetrochanteric fixation | | | | | | hardware. The | | | | | [...] hardware | | | | | | complication.2. Great | | | | | | er trochanteric fixation | | | | | | plate fixed with | | | | | | multiple cerclagewires | | | | | | is unchanged, although | | | | | | the [...] | | | | | | report.Author: Luisa. | | | | | | Malcom JUAREZReviewer: | | | | | | ADELIA | | | | | | aMlcom ESCOBARSTATUS FINAL | | | | | | / Dr. DELVALLE | | | | | | LARYOSTATUS PENDING | | | | | | FINAL APPROVAL / Dr. Kahn | | | | | | BO EVANST | | | | | | PRELIMINARY [...] + +---------+ + + | [facility] DEPARTMENT OF | [...] | | RIGHT | HIP 2 VIEWS | | | | | | RIGHT 10/14/08 | | | | | | 10:03:00CLINICAL DATA: | | | | | | Follow-up | | | | | | hardwareCOMPARISON: | | | | | | 09/06/08FINDINGS:The | | | | | | noncemented right hip | | | | | | arthroplasty remains in | | | | | | place in | | | | | | unchangedalignment. M | | | | | | ultiple cerclage wires | | | | | | and a greater | | | | | | trochanteric plateremain | | | | | | in place. The | | | | | | greater trochanteric | | | | | | fragment has | | | | | | migratedposteriorly and | | | | | | superiorly and is no | | | | | | longer contained within | | | | | | thetrochanteric fixation | | | | | | hardware. The | | | | | [...] hardware | | | | | | complication.2. Great | | | | | | er trochanteric fixation | | | | | | plate fixed with | | | | | | multiple cerclagewires | | | | | | is unchanged, although | | | | | | the [...] + +---------+ + + | [facility] DEPARTMENT OF | [...]
--- OUTSIDE RECORDS SUMMARY | ~2019-02-26 | XMS | Encounter Summary ---
Demographics + + + | Address | [address] | | | [place] [address] | + + + | Home Phone [...] + + + | Author | [facility] | + + + | Organization | [facility] | + + + | Address [...] Team Providers + +------+ + | Care X Ray Developing Machine Operator Name | Role | Phone [...] as of this encounter Progress Notes Interface, Booth Cleaner In - 04/28/2005 7:30 PM PDTClinic Date: [...] followup is scheduled today. Lloyd Garcia M.D. Certified Coatings Inspector, Orthopedics and Rehabilitation / [id number] / [id number] / [id number] / [id number] cc: Ninfa Guillen M.D. [address] [place] [address]Ssuthfyvmprorw signed by Interface, Booth Cleaner In at 04/28/2005 7:3 0 PM PDTdocumented in this encounter Plan of Treatment Not on filedocumented as of this encounter Visit Diagnoses Not on filedocumented in this encounter"
--- OUTSIDE RECORDS SUMMARY | ~2019-02-26 | XMS | Encounter Summary ---
Demographics + + + | Address | [address] | | | [place] [address] | + + + | Home Phone [...] Team Providers + +------+ + | Care Military Nurse Name | Role | Phone | [...] Encounter | Non-Invasive Testing | [address] | | | | | at [facility] | [facility] | | | | | [address] | [place] [address] | | | | | [facility] | | | | | | Mailcode: [address] | | | | | | [place] | | | | | | [facility] | | | | | | [place] [address] | | | | | | [phone] | | | +--------+ + + + [...] + + + | Please click | [facility] DEPT OF | | on view image for the detailed interpretation from [employer] results. | CARDIOLOGY | | | | + + + + + + + + | Performing | Address | City/State/Zipcode | Phone Number | | Organization | | | | + + + + + | [facility] DEPT OF | [address] | [place], [place] | | | CARDIOLOGY | [address] | [address] | | + + + + + | [facility] | [address] | [place], [place] | | | CARDIOLOGY | [address] | [address] | | + + + + + documented in this encounter Visit Diagnoses + + | Diagnosis | + + | Other specified pre-operative examination | + + documented in this encounter
--- OUTSIDE RECORDS SUMMARY | ~2019-02-26 | XMS | Encounter Summary ---
Demographics + + + | Address | [address] | | | [place] [address] | + + + | Home Phone | | + + + | Preferred Language | Unknown | + + + | Marital Status | Single | + + + | Amish Affiliation | Unknown | + + + | Race | Unknown | + + + | Ethnic Group | Unknown | + + + Author + + + | Author | [employer] | + + + | Organization | [facility] | + + + | Address | Unknown | + + + | Phone | Unavailable | + + + Support + + +---------+ + | Name | Relationship | Address | Phone | + + +---------+ + | Kristel Teresa | ECON | Unknown | | + + +---------+ + Care Team Providers + +------+ + | Care Logging Crew Foreman Name | Role | Phone | [...] Required | Medicine / | Radiculopath | SYSTEM SUPPORT DEVELOPER [address] | | | | Dolorology | y of lumbar | [address] | DR [address] | | | | | region | [address] | [place], [place] | | | | | Osteoarthrit | [place], [place] | [address] Phone: | | | | | is of lumbar | [address] | [phone] | | | | | spine, | Phone: | Fax: | | | | | unspecified | [phone] | [phone] | | | | | spinal | Fax: | | | | | | osteoarthrit | [phone] | | | | | | is [...] + + | 01/29/ | Office | [facility] | Xiang Sepulveda, | Radiculopathy of | | 2019 | Visit | [facility] | DO [address] | lumbar region | | | | [address] | [facility] [place] | (Primary Dx); Facet | | | | [place] | [address] | arthropathy, lumbar; | | | | [address] | | Osteoarthritis of | | | | [phone] | | lumbar spine, | | | [...] Last Filed Vital Signs + +---------+ + | Vital Sign | Reading | Time Taken | + +---------+ + | Blood Pressure | 179/99 | 01/29/2019 11:26 AM PDT | + +---------+ + | Pulse | 102 | 01/29/2019 11:26 AM PDT | + +---------+ + | Temperature | - | - | + +---------+ + | Respiratory Rate | 18 | 01/29/2019 11:26 AM PDT | + +---------+ + | Oxygen Saturation | 97% | 01/29/2019 11:26 AM PDT | + +---------+ + | Inhaled Oxygen | - | - | | Concentration | | | + +---------+ + | Weight | - | - | + +---------+ + | Height | - | - | + +---------+ + | Body Mass Index | - | - | + +---------+ + in this encounter Progress Notes Xiang Sepulveda DO - 01/29/2019 11:20 AM PDTFormatting of this note may [...] breath, Disp: , Rfl: diclofenac (VOLTAREN) 75 MG EC tablet, Take 1 tablet by mouth 2 (two) times daily., Di sp: 60 tablet, Rfl: 11 [START ON 02/28/2019] oxyCODONE-acetaminophen (PERCOCET) 5-325 MG per tablet, Take 1 tab let by mouth every 8 (eight) hours as needed for Pain for up to 30 days., Disp: 90 tablet, R fl: 0 diclofenac (VOLTAREN) 1 %, Apply 2 g topically 4 (four) times daily for 30 days., Disp : 400 g, Rfl: 2 Current Pain Level 2/10 Worst 7/10 Best [...] to physical therapy, mass age therapy, acupuncture, critical care unit manager, along with recommended psychological counseling , either privately, or in group sessions offered by private care individuals, community serv ices, or restorationism organizations. Appropriate referrals were made at patient [...] plan, Will return to office in 8weeks, [facility] was consulted and appears appropriate, Urine Toxicology s creen is pending, Current Morphine milligram equivalents is [...] and complications with the passage of time. 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
--- OUTSIDE RECORDS SUMMARY | ~2019-02-26 | XMS | Encounter Summary ---
Demographics + + + | Address | [address] | | | [place] [address] | + + + | Home Phone [...] Team Providers + +------+ + | Care Molecular Spectroscopist Name | Role | Phone | + +------+ + | Travis Mcginnis MD | PCP | Unavailable | + +------+ + Encounter Details +--------+ + + + + | Date | Type | Department | Care Team | Description | +--------+ + + + + | 05/10/ | Hospital | Diagnostic | | | | 2010 | Encounter | Radiology at [facility] | | | | | | [address] [facility] | | | | | | [facility] | | | | | | Mailcode: [address] | | | | | | [address] | | | | | | [place], [place] | | | | | | [address] | | | | | | [phone] | | | +--------+ + + + [...] + + + +---------+ + + | [place]-3 Fatty | Take by mouth. | | [...]
--- OUTSIDE RECORDS SUMMARY | ~2019-02-26 | XMS | Encounter Summary ---
Demographics + + + | Address | [address] | | | [place] [address] | + + + | Home Phone [...] Team Providers + +------+ + | Care Overhauler Bus Truck Name | Role | Phone | + [...] is | | | | | | obscured byoverlying | | | | | | soft | | | | | | [...]
--- OUTSIDE RECORDS SUMMARY | ~2019-02-26 | XMS | Encounter Summary ---
Demographics + + + | Address | [address] | | | [place] [address] | + + + | Home Phone [...] Team Providers + +------+ + | Care Police Dispatcher Name | Role | Phone | + +------+ + | Marta Jenkins CAP INSPECTOR | PCP | | + +------+ + Encounter Details +--------+ + + + + | Date | Type | Department | Care Team | Description | +--------+ + + + + | 06/11/ | Ancillary | Registration [address] | Lloyd Garcia MD | | | 2005 | Registratio [address]man | | | | | n | [facility] Mailcode: | | | | | | [id number] [place], [place] | | | | | | [address] | | | | | | [phone] | | | +--------+ + + + [...]
--- OUTSIDE RECORDS SUMMARY | ~2019-02-26 | XMS | Encounter Summary ---
Demographics + + + | Address | [address] | | | [place] [address] | + + + | Home Phone [...] + + + | Author | [facility] | + + + | Organization | [facility] | + + + | [...] Team Providers + +------+ + | Care Composition Floor Setter Name | Role | Phone | + +------+ + PCP | Unavailable | + +------+ + Encounter Details +--------+ + + + + | Date | Type | Department | Care Team | Description | +--------+ + + + + | 01/26/ | Results | Orthopaedics at | Lloyd Garcia MD | | | 2002 | Only | [facility] [address] | | | | | | [facility] | | | | | | Mailcode: [id number] | | | | | | Physician'yokasta Ocampo | | | | | | [place], [place] | | | | | | [address] | | | | | | [phone] | | | +--------+ + + + [...] X-RAY INJ HIP ARTHRO | Routin | 01/26/2003 | | Results for this | | WO ANESTHESIA | e | 10:58 AM | | procedure are in the | | | | PDT | | results section. | + +--------+ + + + | X-RAY ARTHROGRAM HIP | Routin | 01/26/2003 | | Results for this | | RT | e | 10:58 AM | | procedure are in the | | | | PDT | | results section. | + +--------+ + + + documented in this encounter Results INJ HIP ARTHRO WO ANESTHESIA (01/26/2003 10:58 AM PDT) + + + + + + | Component | Value | Ref Range | Performed | Pathologist | | | | | At | Signature | + + + + + + | INJ HIP | Radiologist 1: YAMILKA | | | | | ARTHANDRÉS WO | Malcom HENRIQUEZ-Radiologist | | | | | ANESTHESIA | 2: MARTINEZ ALARCON | | | | | | MalcomRIGHT HIP ARTHROGRAM | | | | | | AND THERAPEUTIC | | | | | | INJECTION: 01/26/2003 | | | | | | | | | | | | Dictated: 01/26/2003 | | | | | | COMPARISON: | | | | | | 3. CLINICAL HISTORY: | | | | | | Osteoarthritis of the | | | | | | right hip. Request | | | | | | forinjection of steroid | | | | | | and Marcaine. | | | | | | PROCEDURE: PARQ was | | | | | | held with the patient | | | | | | and the benefits and | | | | | | risksof the procedure | | | | | | were explained. All | | | | | | her questions were | | | | | | answered andwritten | | | | | | informed consent was | | | | | | obtained. Waste Specialist AP | | | | | | and lateral images ofthe | | | | | | the right hip were | | | | | | obtained. In the supine | | | | | | position, the right hip | | | | | | joint was localized | | | | | | usingfluoroscopy. The | | | | | | site of injection was | | | | | | cleaned and prepped in | | | | | | theusual sterile | | | | | | fashion. 1% lidocaine | | | | | | was used for local | | | | | | anesthesia.Under | | | | | | fluoroscopic guidance, a | | | | | | 22-gauge spinal needle | | | | | | was placed intothe hip | | | | | | joint. Injection of | | | | | | approximately 10 cc of | | | | | | Hypaque-60 wasused to | | | | | | confirm needle position. | | | | | | The needle was | | | | | | repostioned as necessary | | | | | | until the tip was | | | | | | confirmed | | | | | | asintrarticular. A | | | | | | mixture of 4 cc of | | | | | | bupivacaine 0.25% and 1 | | | | | | cc ofDepo-Medrol (40 | | | | | | mg/cc) was then injected | | | | | | into the hip | | | | | | joint. Theneedle was | | | | | | removed and manual | | | | | | pressure was | | | | | | applied. The | | | | | | patienttolerated the | | | | | | procedure well with no | | | | | | immediate complications. | | | | | | The procedure was | | | | | | performed by Drs. Eli | | | | | | and Yamilka. | | | | | | FINDINGS: Waste Specialist | | | | | | images of the right hip | | | | | | demonstrate | | | | | | advancedosteoarthritic | | | | | | changes with narrowing, | | | | | | spurring, and sclerosis, | | | | | | asseen previously. | | | | | | Initially, contrast was | | | | | | identified as | | | | | | extraarticular, with | | | | | | partialfilling of the | | | | | | iliopsoas | | | | | | bursa. Following | | | | | | repostioning, contrast | | | | | | wasidentified within the | | | | | | right hip joint | | | | | | capsule. Before the | | | | | | procedure,the patient | | | | | | rated her pain as 6/10 | | | | | | and post-procedure her | | | | | | paindecreased to 0-/. | | | | | | IMPRESSION: | | | | | | 1. Moderate to | | | | | | advanced degenerative | | | | | | joint disease of the | | | | | | right hip. | | | | | | 2. Successful right | | | | | | hip injection with 4 | | | | | | cc of bupivacaine 0.25% | | | | | | and40 mg of Depo-Medrol | | | | | | with subjective | | | | | | improvement in pain from | | | | | | 6/10 toto 0-10/09. END | | | | | | [...] + +---------+ + + ARTHROGRAM HIP RT (01/26/2003 10:58 AM PDT) + + + + + + | Component | Value | Ref Range | Performed | Pathologist | | | | | At | Signature | + + + + + + | ARTHROGRAM | Radiologist 1: YAMILKA, | | | | | HIP RT | Malcom HENRIQUEZ-Radiologist | | | | | | 2: MARTINEZ ALARCON, | | | | | | M.Gene.RIGHT HIP ARTHROGRAM | | | | | | AND THERAPEUTIC | | | | | | INJECTION: 01/26/2003 | | | | | | | | | | | | Dictated: 01/26/2003 | | | | | | COMPARISON: | | | | | | 3. CLINICAL HISTORY: | | | | | | Osteoarthritis of the | | | | | | right hip. Request | | | | | | forinjection of steroid | | | | | | and Marcaine. | | | | | | PROCEDURE: PARQ was | | | | | | held with the patient | | | | | | and the benefits and | | | | | | risksof the procedure | | | | | | were explained. All | | | | | | her questions were | | | | | | answered andwritten | | | | | | informed consent was | | | | | | obtained. Waste Specialist AP | | | | | | and lateral images ofthe | | | | | | the right hip were | | | | | | obtained. In the supine | | | | | | position, the right hip | | | | | | joint was localized | | | | | | usingfluoroscopy. The | | | | | | site of injection was | | | | | | cleaned and prepped in | | | | | | theusual sterile | | | | | | fashion. 1% lidocaine | | | | | | was used for local | | | | | | anesthesia.Under | | | | | | fluoroscopic guidance, a | | | | | | 22-gauge spinal needle | | | | | | was placed intothe hip | | | | | | joint. Injection of | | | | | | approximately 10 cc of | | | | | | Hypaque-60 wasused to | | | | | | confirm needle position. | | | | | | The needle was | | | | | | repostioned as necessary | | | | | | until the tip was | | | | | | confirmed | | | | | | asintrarticular. A | | | | | | mixture of 4 cc of | | | | | | bupivacaine 0.25% and 1 | | | | | | cc ofDepo-Medrol (40 | | | | | | mg/cc) was then injected | | | | | | into the hip | | | | | | joint. Theneedle was | | | | | | removed and manual | | | | | | pressure was | | | | | | applied. The | | | | | | patienttolerated the | | | | | | procedure well with no | | | | | | immediate complications. | | | | | | The procedure was | | | | | | performed by Drs. Eli | | | | | | and Yamilka. | | | | | | FINDINGS: Waste Specialist | | | | | | images of the right hip | | | | | | demonstrate | | | | | | advancedosteoarthritic | | | | | | changes with narrowing, | | | | | | spurring, and sclerosis, | | | | | | asseen previously. | | | | | | Initially, contrast was | | | | | | identified as | | | | | | extraarticular, with | | | | | | partialfilling of the | | | | | | iliopsoas | | | | | | bursa. Following | | | | | | repostioning, contrast | | | | | | wasidentified within the | | | | | | right hip joint | | | | | | capsule. Before the | | | | | | procedure,the patient | | | | | | rated her pain as 6/10 | | | | | | and post-procedure her | | | | | | paindecreased to 0-1/10. | | | | | | IMPRESSION: | | | | | | 1. Moderate to | | | | | | advanced degenerative | | | | | | joint disease of the | | | | | | right hip. | | | | | | 2. Successful right | | | | | | hip injection with 4 | | | | | | cc of bupivacaine 0.25% | | | | | | and40 mg of Depo-Medrol | | | | | | with subjective | | | | | | improvement in pain from | | | | | | 6/10 toto 0-10/09. END | | | | | | [...]
--- OUTSIDE RECORDS SUMMARY | ~2019-02-26 | XMS | Encounter Summary ---
Demographics + + + | Address | [address] | | | [place] [address] | + + + | Home Phone [...] Team Providers + +------+ + | Care Charity Fundraiser Name | Role | Phone | [...] her | | 2005 | | [facility] [address] | | injection and still | | | | [facility] | | is in a lot of pain) | | | | Mailcode: [id number] | | | | | | [facility] | | | | | | [place], [place] | | | | | | [address] | | | | | | [phone] | | | +--------+ + + + [...]
--- OUTSIDE RECORDS SUMMARY | ~2019-02-26 | XMS | Encounter Summary ---
Demographics + + + | Address | [address] | | | [place] [address] | + + + | Home Phone [...] Team Providers + +------+ + | Care Wood Polisher Name | Role | Phone | [...] [address] | [facility] | | | | | [facility] | [place] [address] | | | | | Mailcode: L457 | [phone] | | | | | Physicians [address] | | | | | | [place], [place] | | | | | | [address] | | | | | | [phone] | | | +--------+ + + + [...]
--- OUTSIDE RECORDS SUMMARY | ~2019-02-26 | XMS | Encounter Summary ---
Demographics + + + | Address | [address] | | | [place] [address] | + + + | Home Phone [...] Providers + +------+ + | Care Retail Sales Specialist Name | Role | Phone | [...] | Head and Neck | MEGAN Reddy [address] | | | | | Surgery Services at | [facility], | | | | | [facility] [address] | [place] [address] | | | | | [facility] | [phone] | | | | | Mailcode: PV01 | | | | | | [facility] | | | | | | [place], [place] | | | | | | [address] | | | | | | [phone] | | | +--------+ + + + [...]
--- OUTSIDE RECORDS SUMMARY | ~2019-02-26 | XMS | Encounter Summary ---
Demographics + + + | Address | [address] | | | [place] [address] | + + + | Home Phone [...] + + + | Author | [facility] | + + + | Organization | [facility] | + + + | [...] Team Providers + +------+ + | Care Dba Name | Role | Phone | [...] [address] | | | | | [facility] | [facility] | | | | | Mailcode: [id number] | [place], [place] | | | | | [facility] | [address] | | | | | [place], [place] | [phone] | | | | | [address] | | | | | | [phone] | | | +--------+ + + + [...]
--- OUTSIDE RECORDS SUMMARY | ~2019-02-26 | XMS | Encounter Summary ---
Demographics + + + | Address | [address] | | | [place] [address] | + + + | Home Phone [...] Team Providers + +------+ + | Care Winding Department Supervisor Name | Role | Phone | + +------+ + PCP | Unavailable | + +------+ + Encounter Details +--------+ + + + + | Date | Type | Department | Care Team | Description | +--------+ + + + + | 09/14/ | Results | | Other, Faculty | | | 2002 | Only | | [phone] | | +--------+ + + + + [...] + | Ordered by JEFERSON CRONIN, . [id number] Patient unavailable, | | | specimen not obtained | | + + + + + + + + | Performing | Address | City/State/Zipcode | Phone Number | | Organization | | | | + + + + + | [facility] | [address] | [place] [address] | | | LABORATORY | | | [...] + | Ordered by JEFERSON CRONIN JR. [id number] Patient unavailable, | [facility] | | specimen not obtained | DEPARTMENT OF | | | PATHOLOGY | + + + + + + + + | Performing | Address | City/State/Zipcode | Phone Number | | Organization | | | | + + + + + | [facility] | [address] | [place] [address] | | | PATHOLOGY | [address] | | | + + + + + | [facility] | [address] | [place] [address] | | | PATHOLOGY | [address] [...] + | Ordered by JEFERSON CRONIN JR. [id number] Staff or dialysis draw | [facility] | | required. | DEPARTMENT OF | | | PATHOLOGY | + + + + + + + + | Performing | Address | City/State/Zipcode | Phone Number | | Organization | | | | + + + + + | [facility] DEPARTMENT OF | [address] | [place] [address] | | | PATHOLOGY | [address] | | | + + + + + | [facility] DEPARTMENT OF | [address] | [place] [address] | | | PATHOLOGY | [address] [...] [facility] DEPARTMENT OF | [address] | [place] [address] | | | PATHOLOGY | [address] | | | + + + + + | [facility] DEPARTMENT OF | [address] | [place] [address] | | | PATHOLOGY | [address] [...] | + + + + + | [facility] | [address] | [place] [address] | | | PATHOLOGY | [address] | | | + + + + + | [facility] | [address] | [place] [address] | | | PATHOLOGY | [address] | | | + + + + + documented in this encounter Visit Diagnoses Not on filedocumented in this encounter"
--- OUTSIDE RECORDS SUMMARY | ~2019-02-26 | XMS | Encounter Summary ---
Demographics + + + | Address | [address] | | | [place] [address] | + + + | Home Phone [...] Providers + +------+ + | Care Architectural Sales Consultant Name | Role | Phone [...] of this encounter Progress Notes Interface, Manager Community Relations In - 08/06/2006 1:09 AM PSTCLINIC DATE: [...] provided by Dr. Noland. Lloyd Garcia M.D. Vapor Coater, Orthopedics and Rehabilitation / [id number] / [id number] / [id number] / [id number] cc: Helio Noland M.D. [address] [place], [place] [address]Joffakyxelgfhb signed by Interface, Manager Community Relations In at 08/06/2006 1: 09 AM PSTdocumented in this encounter Plan of Treatment Not on filedocumented as of this encounter Visit Diagnoses Not on filedocumented in this encounter
--- OUTSIDE RECORDS SUMMARY | ~2019-02-26 | XMS | Encounter Summary ---
Demographics + + + | Address | [address] | | | [place] [address] | + + + | Home Phone [...] Providers + +------+ + | Care Investment Broker Name | Role | Phone | [...] | | [facility] | [address] [place], [place] | | | | | Mailcode: PV430 | [address] | | | | | Physician[facility] [address] | | | | | | [place], [place] | | | | | | [address] | | | | | | [phone] | | | +--------+ + + + [...] 10/30/99 | | | | | | [id number] hours. | | | | | | Dictated 11/01/99. | | | | | | FINDINGS: There is a | | | | | | shallow right rotatory | | | | | | lumbar | | | | | | convexity. [id number] | | | | | | S1 [...] | + +---------+ + + | [facility] DEPARTMENT OF | | | | | RADIOLOGY | | | | + +---------+ + + documented in this encounter Visit Diagnoses Not on filedocumented in this encounter"
--- OUTSIDE RECORDS SUMMARY | ~2019-02-26 | XMS | Encounter Summary ---
Demographics + + + | Address | [address] | | | [place] [address] | + + + | Home Phone [...] | + + + + + | Casnadra Smith | ROBERTO | [place] | | + + + + + Care Team Providers + +------+ + | Care Crystal Finisher Name | Role | Phone | + +------+ + | No Pcp Per Patient | PCP | Unavailable | + +------+ + Encounter Details +--------+ + + + + | Date | Type | Department | Care Team | Description | +--------+ + + + + | 12/15/ | Senior Commercial Loan Officer | Orthopaedics at | Kalyan Arias MD | JUAN DAVID (Total Hip | | 2008 | | [facility] [address] | [address] | Arthroplasty) | | | | [facility] | [address] | (Primary Dx) | | | | Mailcode: PV430 | [place], [place] | | | | | Phys[facility] [address] | [address] | | | | | [place], [place] | [phone] | | | | | [address] | | | | | | [phone] | | | +--------+ + + + [...] | | | | | | [facility] - | | | | | [...] | | + +---------+ + + | [facility] DEPARTMENT OF | | | | [...]
--- OUTSIDE RECORDS SUMMARY | ~2019-02-26 | XMS | Encounter Summary ---
Demographics + + + | Address | [address] | | | [place] [address] | + + + | Home Phone [...] Team Providers + +------+ + | Care Cosmetics Counter Manager Name | Role | Phone | [...] as of this encounter Discharge Summaries Interface, Environmental Epidemiologist In 02/27/2006 3:05 AM PDTAdmission Date: 09/13/2003 [...] readmitted. DISPOSITION: She [place] [facility] [place]. MEDICATIONS: 1. Docusate #80. 2. Oxycodone #80. 3. Indomethacin 25 mg, p.o. t.i.d. for six weeks. FOLLOWUP: She will see Dr. Garcia in two weeks. She is to continue wearing her abduction brace. If she has any changes in her wound she is to notify our clinic as soon as possible. Benson oBone M.D. Lloyd Garcia M.D. RT:[id number] signed by Interface, Environmental Epidemiologist In at 02/27/2006 3:05 AM [facility]ed in this encounter Plan of Treatment Not on filedocumented as of this encounter Visit Diagnoses Not on filedocumented in this encounter"
--- OUTSIDE RECORDS SUMMARY | ~2019-02-26 | XMS | Encounter Summary ---
Demographics + + + | Address | [address] | | | [place] [address] | + + + | Home Phone [...] Providers + +------+ + | Care Bus Cleaner Name | Role | Phone | [...] as of this encounter Progress Notes Interface, Comber Operator In - 2006 1:06 AM PDTCLINIC DATE: 06/24/2003 ORTHOPEDIC CLINIC HISTORY: This is a 43-year-old obese female followed for right hip degenerative joint disease, returns to clinic today having had no relief after her last 2 fluoroscopically guided cortisone injections on October 05, 2002, and January 26, 2003. The x-rays at that time revealed dljnsoey-hj-jdbplosh degenerative joint disease. I confirmed that the [...] She does continue to drive in from [place] for her care here. She continues to [...] times per day. PHYSICAL EXAMINATION GENERAL: A nmrfengp-tn-mvdtpvwg obese short statured woman who ambulates with [...] authorization has been obtained. Lloyd Garcia M.D. Sole Molding Machine Operator of Orthopedics and Rehabilitation / [id number] / [id number] / [id number] / cc: Ninfa Guillen M.D. [address] [place] [address] [id number] signed by Interface, Comber Operator In at 2006 1:06 AM [facility]ed in this encounter Plan of Treatment Not on filedocumented as of this encounter Visit Diagnoses Not on filedocumented in this encounter"
--- OUTSIDE RECORDS SUMMARY | ~2019-02-26 | XMS | Encounter Summary ---
Demographics + + + | Address | [address] | | | [place] [address] | + + + | Home Phone [...] + +------+ + | Care Director Of Clinical Trials Name | Role | Phone | + [...] W | | | | ON | [facility] 4th Floor [address] | | | | | [address] | [address] [place], [place] | | | | | Code: [address] | [address] | | | | | for Health and | | | | | | Healing,4th Floor | | | | | | [place], [place] | | | | | | [address] | | | | | | [phone] | | | +--------+ + + + [...]
--- OUTSIDE RECORDS SUMMARY | ~2019-02-26 | XMS | Encounter Summary ---
Demographics + + + | Address | [address] | | | [place] [address] | + + + | Home Phone [...] + +------+ + | Care Call Center Associate Name | Role | Phone [...] [address]ira | | | | | | [facility] | | | | | | Mailcode: [id number] | | | | | | Physician'yokasta Ocampo | | | | | | [place], [place] | | | | | | [address] | | | | | | [phone] | | | +--------+ + + + [...] near | | | | | | kqcm-zoce-ayyc | | | | | | appearance [...] | + +---------+ + + | [facility] DEPARTMENT OF | | | | | RADIOLOGY | | | | + +---------+ + + documented in this encounter Visit Diagnoses Not on filedocumented in this encounter"
--- OUTSIDE RECORDS SUMMARY | ~2019-02-26 | XMS | Encounter Summary ---
Demographics + + + | Address | [address] | | | [place] [address] | + + + | Home Phone [...] + +------+ + | Care Physician General Practice Name | Role | Phone | + [...] Lira | | | | | | [facility] | | | | | | Mailcode: [id number] | | | | | | Physician'yokasta Ocampo | | | | | | [place], [place] | | | | | | [address] | | | | | | [phone] | | | +--------+ + + + [...] | + + + + + | [facility] | [address] | [place] [address] | | | LABORATORY | | | [...] | + + + + + | [facility] | [address] | [place] [address] | | | PATHOLOGY | [address] | | | + + + + + | [facility] | [address] | [place] [address] | | | PATHOLOGY | [address] [...] DEPARTMENT OF | [address] | [place], [place] [address] | | | PATHOLOGY | [address] | | | + + + + + | [facility] DEPARTMENT OF | [address] | [place] [address] | | | PATHOLOGY | [address] [...] | + + + + + | [facility] | [address] | [place] [address] | | | PATHOLOGY | [address] | | | + + + + + | [facility] | [address] [place] [address] | [place] [address] | | | PATHOLOGY | [address] [...] | | | | | RT | [address] | | | | | | RIGHT [...] | + +---------+ + + | [facility] DEPARTMENT OF | | | | | RADIOLOGY | | | | + +---------+ + + documented in this encounter Visit Diagnoses Not on filedocumented in this encounter"
--- OUTSIDE RECORDS SUMMARY | ~2019-02-26 | XMS | Encounter Summary ---
Demographics + + + | Address | [address] | | | [place] [address] | + + + | Home Phone [...] Providers + +------+ + | Care Field Irrigation Worker Name | Role | Phone | [...] Lira | | | | | | [facility] | | | | | | Mailcode: [id number] | | | | | | Physician'yokasta Ocampo | | | | | | [place], [place] | | | | | | [address] | | | | | | [phone] | | | +--------+ + + + [...] | | | | | | DEPO-MEDROL: | | | | | | 05/19/2001 | | | | | | Dictated 05/21/2001 | | | | | | CLINICAL HISTORY: | | | | | | Patient with history of | | | | | | severe [...] | | | | | | motion. | | | | | | PROCEDURE: PAR2 | | | | | | conference was held with | | | | | | the patient and | | | | | | informedconsent | | | | | | [...] of | | | | | | Oqqv-Kuucymtllnf-qkfdsey | | | | | | jose. [...] | | | | | 8/10 to 2-12/07 and | | | | | | [...] + +---------+ + + | [facility] DEPARTMENT OF | | [...] 2: | | | | | | JARETT | | | | | | REBECCAHIP: 05/13/2001 | | | | | | Dictated 05/13/01 | | | | | | CLINICAL [...] | | | | | left hip jointspace is | | | | [...] + +---------+ + + | [facility] DEPARTMENT OF | | [...] FLOWERS | | | | | | M.D.-Radiologist 2: | | | | | | BALAJI DENSON | | | | | | KNEE: 05/13/2001 | | | | | | Dictated 05/13/2001 | | | | | | CLINICAL HISTORY: | | | | | | Evaluate right knee | | | | | | pain. TECHNIQUE: | | | | | | Tunnel view and Merchant | | | | | | views, lateral view | | | | | | right knee. | | | | | | FINDINGS: There is | | | | | | slight lateral | | | | | [...] + + | Performing | Address | City/State/[place] | Phone Number | | Organization | | | | + +---------+ + + | [facility] DEPARTMENT OF | | [...] | | | | | | MalcomAP | | | | | | PELVIS: 05/13/2001 | | | | | | Dictated 06/18/2001 | | | | | | HISTORY: Pain. | | | | | | COMPARISON: 01/11/2000. | | | | | | FINDINGS: There is | | | | | | superior-medial | | | | | | [...] | | | | fracture. The left | | | | | | hip is maintained.The | | | | | | left femoral head is | | | | | | smooth. IMPRESSION: | | | | | | 1. Right hip | | | | | | degenerative [...] + +---------+ + + | [facility] DEPARTMENT OF | | | | | RADIOLOGY | | | | + +---------+ + + documented in this encounter Visit Diagnoses Not on filedocumented in this encounter
--- OUTSIDE RECORDS SUMMARY | ~2019-02-26 | XMS | Encounter Summary ---
Demographics + + + | Address | [address] | | | [place] [address] | + + + | Home Phone [...] Providers + +------+ + | Care Inspector Open Die Name | Role | Phone | + +------+ + PCP | Unavailable | + +------+ + Encounter Details +--------+ + + + + | Date | Type | Department | Care Team | Description | +--------+ + + + + | 03/19/ | Results | Registration [id number] | Other, Faculty | | | 2007 | Only | Akil Bergman | [phone] | | | | | [facility] Mailcode: | | | | | | [id number] [place], [place] | | | | | | [address] | | | | | | [phone] | | | +--------+ + + + [...]
--- OUTSIDE RECORDS SUMMARY | ~2019-02-26 | XMS | Encounter Summary ---
Demographics + + + | Address | [address] | | | [place] [address] | + + + | Home Phone [...] Providers + +------+ + | Care Hat And Cap Sewer Name | Role | Phone | [...] of this encounter Progress Notes Interface, Well Services Operator In - 09/15/2006 5:11 AM PSTCLINIC DATE: [...] M.D. Lloyd Garcia [facility] [email or web address] C: 04/26/99 [facility] cc: Matthew Garcia MD [address] [place], [place] [id number] signed by Interface, Well Services Operator In at 09/15/2006 5:11 AM PSTInterface, Well Services Operator In - 09/13/2006 3:12 AM PSTCLINIC DATE: [...] evaluation and treatment recommendations. Lloyd Garcia M.D., Exchange Underwriting Consultant, Orthopedics and Rehabilitation AH:[id number] Electronically signed by Bill, Well Services Operator In at 1 11/14/2005 3:12 AM PSTdocumented in this encounter Plan of Treatment Not on filedocumented as of this encounter Visit Diagnoses Not on filedocumented in this encounter"
--- OUTSIDE RECORDS SUMMARY | ~2019-02-26 | XMS | Encounter Summary ---
Demographics + + + | Address | [address] | | | [place] [address] | + + + | Home Phone [...] Providers + +------+ + | Care Process Laboratory Specialist Name | Role | Phone [...] Lira | | | | | | [facility] | | | | | | Mailcode: [id number] | | | | | | Physician'yokasta Ocampo | | | | | | [place], [place] | | | | | | [address] | | | | | | [phone] | | | +--------+ + + + [...] + + + + | [facility] | [address] | [place] [address] | | | PATHOLOGY | [address] | | | + + + + + | [facility] | [address] | [place] [address] | | | PATHOLOGY | [address] [...] DEPARTMENT OF | [address] | [place] [address] | | | PATHOLOGY | [address] | | | + + + + + | [facility] | [address] | [place] [address] | | | PATHOLOGY | [address] | | | + + + + + documented in this encounter Visit Diagnoses Not on filedocumented in this encounter"
--- OUTSIDE RECORDS SUMMARY | ~2019-02-26 | XMS | Encounter Summary ---
Demographics + + + | Address | [address] | | | [place] [address] | + + + | Home Phone [...] Team Providers + +------+ + | Care Shampooer Name | Role | Phone | + [...] as of this encounter Progress Notes Interface, Miner In - 09/08/2006 1:11 AM PSTCLINIC DATE: 07/13/1999 [facility]TH[facility] HISTORY: This is an attending mogran element note on this 39-year-old obese female [...] evaluation. Lloyd Garcia MD / [id number] / [id number] / [id number] / cc: Matthew Garcia MD [address] [place], [place] [id number] signed by Interface, Miner In at 09/08/2006 1:11 AM PSTdocumented in this encounter Plan of Treatment Not on filedocumented as of this encounter Visit Diagnoses Not on filedocumented in this encounter"
--- OUTSIDE RECORDS SUMMARY | ~2019-02-26 | XMS | Encounter Summary ---
Demographics + + + | Address | [address] | | | [place] [address] | + + + | Home Phone | | + + + | Preferred Language | Unknown | + + + | Marital Status | Single | + + + | Jainism Affiliation | Unknown | + + + | Race | Unknown | + + + | Ethnic Group | Unknown | + + + Author + + + | Author | [facility] | + + + | Organization | [facility] | + + + | Address | Unknown | + + + | Phone | Unavailable | + + + Support + + +---------+ + | Name | Relationship | Address | Phone | + + +---------+ + | Kristel Teresa | ECON | Unknown | | + + +---------+ + Care Team Providers + +------+ + | Care Front Desk Officer Name | Role | Phone | [...] + + | 12/11/ | Telephone | [facility] | Xiang Sepulveda, | Medication Problem | | 2019 | | [facility] | DO [address] | (Change on Rx refill | | | | [address] | [place], [place] | order.) | | | | [place], [place] | [address] | | | | | [address] | | | | | | [phone] | | | +--------+ + + + [...] [place] | | | | | | [address] | | | | | | | | +--------+---------+ + + + as of this encounter Visit Diagnoses Not on filein this encounter"
--- OUTSIDE RECORDS SUMMARY | ~2019-02-26 | XMS | Encounter Summary ---
Demographics + + + | Address | [address] | | | [place] [address] | + + + | Home Phone [...] Team Providers + +------+ + | Care Cardiology Physician Name | Role | Phone | [...] | | | | | Karen E, WEAVER WIRE LOOM | [facility] [address] | | | | | TRANSTHORACI | [address] | | | | | C | [address] | [facility] | | | | | ECHOCARDIOGR | Rd | Mailcode: | | | | | AM, ADULT | [place], [place] | [address] | | | | | | [address] | [address] | | | | | | | Building | | | | | | | [place], [place] | | | | | | | [address] | | | | | | | Phone: | | | | | | | [phone] | +--------+--------+ + + + + Diagnostic [...] | | | | | Karen E, WEAVER WIRE LOOM | [facility] [address] | | | | | TRANSTHORACI | [address] | | | | | C | [address] | [facility] | | | | | ECHOCARDIOGR | Rd | Mailcode: | | | | | AM, ADULT | [place], [place] | [address] | | | | | | [address] | [address] | | | | | | | Building | | | | | | | [place], [place] | | | | | | | [address] | | | | | | | Phone: | | | | | | | [phone] | +--------+--------+ + + + + Diagnostic [...] | | | | [place] INJECTION | [facility] | Mailcode: | | | | | [address] | Rd | [facility] | | | | | W/NEEDLE | [place], [place] | for Health | | | | | PLCMT | [address] | and Healing, | | | | | | | 3rd Floor | | | | | | | [place], [place] | | | | | | | [address] | | | | | | | Phone: | | | | | | | [phone] | | | | | | | Fax: | | | | | | | [phone] | +--------+--------+ + + + + Diagnostic [...] | | | X-RAY | Karen E, WEAVER WIRE LOOM | [address] | | | | | ASPIRATION | [address] | [address] | | | | | [place] INJECTION | [facility] | Mailcode: | | | | | MA[address] JOINT | Rd | [facility] | | | | | W/NEEDLE | [facility] [place] | for Health | | | | | PLCMT | [address] | and Healing, | | | | | | | 3rd Floor | | | | | | | [place], [place] | | | | | | | [address] | | | | | | | Phone: | | | | | | | [phone] | | | | | | | Fax: | | | | | | | [phone] | +--------+--------+ + + + + Reason [...] | | | | | | [address] | | | | | | [address] | | | | | | | [facility] | | | | | | | HOSPITAL | | | | | | | [place], [place] | | | | | | | [address] Phone: | | | | | | | [phone] | +--------+--------+ + + + + Encounter [...] | 10/23/ | | PAVILION (MNP/OLD | [place], [place] | | | 2010 | | [facility]) [place], [place] | [address] | | | | | [address] | [phone] | | | | | | | | | | | | Jillian Bee MD | | | | | | [address] | | | | | | [facility], | | | | | | [place] [address] | | | | | | [phone] | | | | | | | | | | | | Tisha Figueroa FNP | | | | | | [address] | | | | | | [facility], | | | | | | [place] [address] | | | | | | [phone] | | | | | | | | | | | | Rustam Duenas MD | | | | | | [address] | | | | | | [facility], | | | | | | [place] [address] | | | | | | [phone] | | | | | | | | | | | | Benson Cooper MD | | | | | | [address] | | | | | | [address] [place], [place] | | | | | | [address] | | | | | | | | | | | | Kalyan Arias MD | | | | | | [address] | | | | | | [address]oxann [address]ala [place], | | | | | | [place] [address] | | | | | | [phone] | | | | | | | [...] might be different f rom the original. [facility]PART[facility]THOPAEDICS & [facility]IL[facility]ATION INPATIENT HOSPITAL DISCHARGE SUMMARY & INTERDISCIPLINARY INSTRUCTIONS Patient: Chastity Galdamez CSN: [id number] Admission Date: 10/12/2010 Discharge Date: 10/22/2010 Attending Physician: Kalyan Arias MD PCP: Travis Cruz MD Service: [facility] Orthopaedics & Rehabilitation Diagnoses Principal Final [...] WBAT Discharge POLST completed No Destination: Destination: Penitentiary Facility Condition on Discharge Good Discharge Follow Up Provider and Clinic: Tesfaye Saenz, Orthopaedic Surgery . Appointment: Please call clinic to make appointment for 2 weeks after your surgery for sut ure/staple removal and wound check. Call [phone] to arrange appointment date and time. Outpatient antibiotics: [facility] referral has been made (for outpatient antibiotics). -While on outpatient antibiotics, weekly CBC/diff, CMP, ESR, & CRP should be checked, with results faxed to Dr. Teresa or Elvia SPENCE at [facility] clinic (fax #[phone]). Current Discharge Medication List START taking these [...] hours. Medication to be admixed per infusion [facility] standard policy and/or procedure. Indications: Staphylococcus Aureus [...] W-FE,OTHER MIN (CENTRUM ORAL) Take by mouth. Bailey-3 Fatty Acids-Vitamin E (FISH OIL) 1,000 mg [...] administration instructions. 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 Additional postop instructions/ What to expect: -Apply [...] a pharmacy. Please arrange for someone to coal picker your prescription or allow additional time for [...] 2 weeks (or as previously scheduled). Call [phone] to confirm or schedul e this appointment. [...] Condition on Discharge: Improved Discharging Patient To: Penitentiary Facility Date and Time of Discharge Summary [...] + + + +---------+ + + | Bailey-3 Fatty | Take by mouth. | | [...] 11 Date: 10/23/2010 Patient: CHASTITY Osei TALLY [id number] Interval Hx: Afebrile. Wants to go home. [...] Dr. Teresa or Elvia Putnam PA at [facility] clinic (fax #[phone]). -Dispo plan: pt requires 3 days of flagyl treatment for C. Diff before discharge to snf facility. D/C to snf facility today Samuel Montaño MD - 10/22/2010 7:24 AM PST Ortho Progress Note Hospital Day: 10 Date: 10/22/2010 Author: SAMUEL BOWEN MD Patient: CHASTITY Osei TALLY [id number] Interval Hx: Afebrile. WBC up yesterday and [...] Dr. Teresa or Elvia Putnam PA at [facility] clinic (fax #[phone]). -Dispo plan: pt requires 3 days of flagyl treatment for C. Diff before discharge to skill ed nursing facility. Possible D/C to snf facility today oster, Samuel Evangelista MD - 10/21/2010 7:16 AM PST Ortho Progress Note Hospital Day: 9 Date: 10/21/2010 Author: SAMUEL BOWEN MD Patient: CHASTITY Osei TALLY [id number] Interval Hx: Afebrile overnight. Comfortable and without [...] or Elvia SPENCE at [facility] clinic (fax #[phone]). -Dispo plan: pt requires 3 days of flagyl treatment for C. Diff before discharge to [facility] ed nursing facility. Plan to D/C to snf facility on Saturday10/22/10. Lucero Petersen M D [...] (pt does not want insulin coverage) (10/18/10 5313) Labs: HEMOGLOBIN A1C (%) Date Value 10/17/2010 [...] care for this patient. LUCERO KNOX MD [address] Clinical Hospitalist Service [facility] EPIC DEPARTMENT: Hosp ([facility])- [id number] Place of Service: IP - [id number] [facility] [id number] CPT: 01923 Subsequent Visit Exp Prob Foc/Mod Complexity 25 min I spent 25 minutes qybh-ri-tfxw with this patient of which greater than [...] patient is discharged. Please notify [facility] clinic [id number] re: discharge date, where patient is going (i.e. home, SNF ) and home IV provider if applicable. [facility] Department of Infectious Disease Outpatient IV Antibiotic Therapy Clinic ([facility]) Pager ID: [phone] Mail Code E371 [place] [address] [facility] teaching note: Education and training for [...] card, and let them know that our advanced clinical specialist, Tonja Keller, will be contacting them after [...] from antibiotics occur, we will ask the [facility] to alter the dose of antibiotics, or even change the antibiotics. I expla ined that we will communicate patient's progress and plan with PCP, surgeon, and the home in [facility]. I reviewed the possible complications PICC lines [...] care. I provided the patient with the [facility] welcome letter that reiterates the above teaching. I spent 25 minutes in education and training in patient self management for IV antibiotic a nd PICC line use with greater than 50% spent on counseling and/or coordination of care. [facility] DEPARTMENT: IDC INFECT DIS CONSULT - [id number] Place of Service: Inpatient Date of Service: 10/20/2010 CSN: [id number] Suggested Level of Care: 48523- Subsequent hosp care, 25 min Javier Bunn [...] to Dr. Teresa or Elvia SPENCE at [facility] clinic (fax #[phone]). -Please ensure there is a baseline CBC, CMP, ESR, and CRP prior to discharge.--ordered tod ay -Dispo plan: pt requires 3 days of flagyl treatment for C. Diff before discharge to [facility]. Plan to D/C to snf facility on Saturday10/22/10. Lucero Petersen MD - [...] Prophylaxis: Per primary team. LUCERO KNOX MD [employer] [place] [employer] Clinical Hospitalist Service Division of Hospital Medicine Department of Medicine [facility] DEPARTMENT: Hosp ([facility])- [id number] Place of Service: - Modifiers:GC Resident Involved: No CPT: 87888 Subsequent Visit Exp Prob Foc/Mod Complexity 25 min I spent 25 minutes uenf-fy-rkjl with this patient of which greater than [...] Prophylaxis: Per primary team. LUCERO KNOX MD [employer] [place] dinner Clinical Hospitalist Service Division of Hospital Medicine Department of Medicine [facility] DEPARTMENT: Hosp ([facility])- [id number] Place of Service: IP - [address]012 Modifiers:DANNA Resident Involved: No CPT: 49266 Subsequent Visit Exp Prob Foc/Mod Complexity 25 min I spent 25 minutes xeda-tp-dpxg with this patient of which greater than [...] as well as aspirate LUCERO KNOX MD [employer] [place] dinner Clinical Hospitalist Service Division of Hospital Medicine Department of Medicine [facility] DEPARTMENT: [facility] ([facility])- [id number] Place of Service: [facility] [address] Modifiers:GC Resident Involved: No CPT: 97535 Subsequent Visit Detailed/High complexity 35 min I spent 40 minutes cfyy-dq-igoz with this patient of which greater than [...] Cohen MD - 10/16/2010 9:36 PM PST [facility] ORTHOPAEDIC SURGERY POST OPERATIVE CHECK IDENTIFICATION: [...] consult. [facility] BLE xrays Jillian Farfan MD [facility] Department of Orthopaedics & Rehabilitation [address] [place] [address] Mail Code: OP31 [facility] [address] [email or web address] Pager: [phone] The above was formulated both independently and [...] immobile. Wearing Priscilla Hose. DAVID KNIGHT MD [facility] [address]A [employer] [place] dinner Clinical Hospitalist Service [facility] EPIC DEPARTMENT: Hosp ([facility])- [id number] Place of Service: IP - [address] [facility] [id number] Modifiers:GC Resident Involved: No Service: Ortho Suggested CPT: 57505 Subsequent Visit Exp Prob Foc/Mod Complexity 25 min I spent more than 30 minutes seos-ap-uici with the patient of which greater than 50% was sp ent co-ordinating care Julius, David Evangelista MD - 10/15/2010 7:57 AM PST CLINICAL HOSPITALIST SERVICE ([facility])-PROGRESS NOTE HOSPITAL DAY: 3 Author: DAVID KNIGHT [...] she is quite immobile. DAVID KNIGHT MD [address] [employer] [place] dinner Clinical Hospitalist Service [facility] EPIC DEPARTMENT: Hosp ([facility])- [id number] Place of Service: IP - [address] [facility] [id number] Modifiers:GC Resident Involved: No Service: Primary Suggested CPT: 50661 Subsequent Visit Detailed/High complexity 35 min I spent more than 35 minutes tmgx-sr-hyla with the patient of which greater than [...] + + + | IP CONSULT TO [facility] | Routin | 10/19/2010 | [...] [facility] | [address] | [place], [place] | | | THERAPY | [address] | [address] | | + + + + + [...] DEPARTMENT OF | [address] | [place] [address] | | | PATHOLOGY | [address] [...] + + + | [facility] | [address] | [place] [address] | | | PATHOLOGY | [address] [...] DEPARTMENT OF | [address] | [place] [address] | | | PATHOLOGY | [address] [...] [facility] | [address] | [place], [place] | | | THERAPY | [address] | [address] | | + + + + + [...] [facility] | [address] | [place], [place] | | | SUPRIYA POINT OF CARE | [address] | [address] | | | TESTS | | | [...] DEPARTMENT OF | [address] | [place] [address] | | | PATHOLOGY | [address] [...] + + + | [facility] | [address] | [place] [address] | | | PATHOLOGY | [address] [...] + + | [facility] DEPARTMENT OF | [address] | [place] [address] | | | PATHOLOGY | [address] [...] [facility] | [address] | [place], [place] | | | THERAPY | [address] | [address] | | + + + + + [...] + + + | [facility] | [address] | [place] [address] | | | PATHOLOGY | [address] [...] DEPARTMENT OF | [address] | [place] [address] | | | PATHOLOGY | [address] [...] + + + | [facility] | [address] | [place] [address] | | | PATHOLOGY | [address] [...] Bunch, | | | | | | DRAPERY SUPERVISOR | | | | | | | [...] [facility] | [address] | [place], [place] | | | THERAPY | [facility] | [address] | | + + + + + [...] + + + | [facility] | [address] | [place], [place] | | | THERAPY | [address] | [address] | | + + + + + [...] [facility] | [address] | [place], [place] | | | THERAPY | [address] | [address] | | + + + + + [...] Way Lab) | REGIONAL | | [facility] | LABORATORY | | [address] | | | [place] [address] | | + + + + + + + + | Performing | Address | City/State/Zipcode | Phone Number | | Organization | | | | + + + + + | [facility] | [address] | [place] [address] | | | LABORATORY | | | [...] + + + | [facility] | [address] | [place] [address] | | | PATHOLOGY | [address] [...] + + + | [facility] | [address] | [place] [address] | | | PATHOLOGY | [address] [...] MEDICAL CENTER DEPARTMENT OF | [address] | [place] [address] | | | PATHOLOGY | [address] [...] + + + + | [facility] | [address] | [place] [address] | | | LABORATORY | | | [...] + + + | [facility] | [address] | [place] [address] | | | PATHOLOGY | [address] [...] Miles, | | | | | | DRAPERY SUPERVISOR | | | | | | | | | | | | | | | | | | | | | | | | | | | | | |Electronically Signed by: Cha Miles DRAPERY SUPERVISOR | | | | + + + + +------ --------+ + + | Specimen | + + | | + + + + + + + | Performing | Address | City/State/Zipcode | Phone Number | | Organization | | | | + + + + + | [facility] | [address] | [place], [place] | | | THERAPY | [address] | [address] | | + + + + + [...] + + + | [facility] | [address] | [place] [address] | | | PATHOLOGY | [address] [...] DEPARTMENT OF | [address] | [place] [address] | | | PATHOLOGY | [address] [...] DEPARTMENT OF | [address] | [place] [address] | | | PATHOLOGY | [address] [...] Long 1cm Trimmed Lot # (or Sticker): [id number] INSERTION SITE: | | | - Cephalic [...] Anabella Ramirez RN IVT | | | [id number] Assisted by: jose | | + + [...] CATHETERProduct Name: GroongConstruction: | | Single4 Fr60cm Anog1sp TrimmedLot # (or Sticker): [id number] SITE: - | | CephalicLeftLocal anesthetic used: [...] by CXRPlaced by: Anabella Ramirez RN IVT [id number] | | by: jose | |PICC CATHETER | |Product Name: Boogie | |Construction: Single | |4 Fr | |60cm Long | |1cm Trimmed | |Lot # (or Sticker): [id number] | | | |INSERTION SITE: - Cephalic [...] | |Placed by: [place] [id number] | |Assisted by: na | + + X-RAY PORTABLE CHEST 1 VIEW (10/19/2010 10:45 AM PST) + + + + + + | Component | Value | Ref Range | Performed | Pathologist | | | | | At | Signature | + + + + + + | X-RAY | STUDY: [place] CHEST 1 VIEW | | | | [...] Guardado, | | | | | | DRAPERY SUPERVISOR | | | | + + + + + + + + | Specimen | + + | | + + + + + + + | Performing | Address | City/State/Zipcode | Phone Number | | Organization | | | | + + + + + | [facility] | [address] | [place], [place] | | | THERAPY | [address] | [address] | | + + + + + [...] DEPARTMENT OF | [address] | [place] [address] | | | PATHOLOGY | [address] [...] + + + | [facility] | [address] | [place] [address] | | | PATHOLOGY | [address] [...] + + + | [facility] | [address] | [place] [address] | | | PATHOLOGY | [address] [...] [facility] | [address] | [place], [place] | | | THERAPY | [facility] | [address] | | + + + + + [...] [facility] | [address] | [place], [place] | | | SUPRIYA POINT OF CARE | [address] | [address] | | | TESTS | | | [...] + + + | [facility] | [address] | [place] [address] | | | PATHOLOGY | [address] [...] ([address] [facility]) | [facility] | | [place] [address] | REGIONAL | | [place] [address] | LAB-MICRO | + + + + + + + + | Performing | Address | City/State/Zipcode | Phone Number | | Organization | | | | + + + + + | [facility] | [address] | [place] [address] | | | LAB-MICRO | | | [...] + + + | [facility] | [address] | [place] [address] | | | PATHOLOGY | [address] [...] [facility] | [address] | [place], [place] | | | JADA EPPS OF CARE | [address] | [address] | | | TESTS | | | [...] [facility] | [address] | [place], [place] | | | SUPRIYA POINT OF [facility] | [address] | [address] | | | TESTS | | | [...] + + + | [facility] | [address] | [place] [address] | | | PATHOLOGY | [address] [...] DEPARTMENT OF | [address] | [place] [address] | | | PATHOLOGY | [address] [...] + | [facility] DEPARTMENT | [address] | [place] [address] | | | PATHOLOGY | [address] [...] [facility] | [address] | [place], [place] | | | THERAPY | [address] | [address] | | + + + + + [...] [facility] | [address] | [place], [place] | | | THERAPY | [facility] | [address] | | + + + + + [...] [facility] | [address] | [place], [place] | | | THERAPY | [address] | [address] | | + + + + + [...] RLB ([address] [facility]) | | | [facility] [address] [facility] | | | [place] [address] | | + + + + + + + + | Performing | Address | City/State/Zipcode | Phone Number | | Organization | | | | + + + + + | [facility] | [address] [facility] | [place] [address] | | | LABORATORY | | | [...] + + | [facility] | [address] [facility] | [place], [place] | | | THERAPY | [facility] | [address] | | + + + + + [...] [facility] | [address] | [place], [place] | | | THERAPY | [address] | [address] | | + + + + + [...] [facility] | [address] | [place], [place] | | | JADA EPPS OF CARE | [address] | [address] | | | TESTS | | | [...] [facility] | [address] | [place], [place] | | | JADA EPPS OF CARE | [address] | [address] | | | TESTS | | | [...] [facility] | [address] | [place], [place] | | | SUPRIYA POINT OF CARE | [address] | [address] | | | TESTS | | | [...] | | THERAPY | [address] | [address] | | + + + + + [...] DEPARTMENT OF | [address] | [place] [address] | | | PATHOLOGY | [address] [...] DEPARTMENT OF | [address] | [place] [address] | | | PATHOLOGY | [address] [...] DEPARTMENT OF | [address] | [place] [address] | | | PATHOLOGY | [address] [...] DEPARTMENT OF | [address] | [place] [address] | | | PATHOLOGY | [address] [...] + + + | [facility] | [address] | [place] [address] | | | PATHOLOGY | [address] [...] + + + | [facility] | [address] | [place] [address] | | | LAB-MICRO | | | [...] + + + | [facility] | [address] | [place] [address] | | | LAB-MICRO | | | [...] RLB | | | | | | ([address] [facility]) | | | | | | [facility] | | | | | | Permanente [address] | | | | | | [address] | [address] | | | | | | [place], | | | | | | [place] [address] | | | | + + + + + + + + | Specimen | + + | | + + + + + + + | Performing | Address | City/State/Zipcode | Phone Number | | Organization | | | | + + + + + | [facility] | [address] | [place] [address] | | | LAB-MICRO | | | [...] + + + | [facility] | [address] | [place] [address] | | | LAB-MICRO | | | [...] RLB | | | | | | ([address] [facility]) | | | | | | [facility] | | | | | | Permanente [address] | | | | | | [address] | | | | | [address] | | | | | | | | | | | | [place] [address] | | | | + + + + + + + + | Specimen | + + | | + + + + + + + | Performing | Address | City/State/Zipcode | Phone Number | | Organization | | | | + + + + + | [facility] | [address] | [place] [address] | | | LAB-MICRO | | | [...] + + + | [facility] | [address] | [place] [address] | | | LAB-MICRO | | | [...] RLB | | | | | | ([facility] [facility]) | | | | | | [facility] | | | | | | Permanente [address] | | | | | | [address] | | | | [address] | | | | | | [place] | | | | | | , [place] [address] | | | | + + + + + + + + | Specimen | + + | | + + + + + + + | Performing | Address | City/State/Zipcode | Phone Number | | Organization | | | | + + + + + | [facility] | [address] | [place] [address] | | | LAB-MICRO | | | [...] RLB | | | | | | ([facility] [address] [facility]) | | | | | | [facility] | | | | | | Permanente [address] | | | | | | [address] | | | | | | [address] | | | | | | | | | | | | [place] [address] | | | | + + + + + + + + | Specimen | + + | | + + + + + + + | Performing | Address | City/State/Zipcode | Phone Number | | Organization | | | | + + + + + | [facility] | [address] | [place] [address] | | | LAB-MICRO | | | [...] + + + | [facility] | [address] | [place] [address] | | | LAB-MICRO | | | [...] + + + | [facility] | [address] | [place] [address] | | | LAB-MICRO | | | [...] NW | | | | | | [address] | | [address] | | | | | | [place], | | | | | | [place] [address] | | | | + + + + + + + + | Specimen | + + | | + + + + + + + | Performing | Address | City/State/Zipcode | Phone Number | | Organization | | | | + + + + + | [facility] | [address] | [place] [address] | | | LAB-MICRO | | | [...] + + + | [facility] | [address] | [place] [address] | | | LAB-MICRO | | | [...] + + + | [facility] | [address] | [place] [address] | | | LAB-MICRO | | | [...] NW | | | | | | [address] | | | [address] | | | | | | [place] | | | | | | , [place] [address] | | | | + + + + + + + + | Specimen | + + | | + + + + + + + | Performing | Address | City/State/Zipcode | Phone Number | | Organization | | | | + + + + + | [facility] | [address] | [place] [address] | | | LAB-MICRO | | | [...] + + + | [facility] | [address] | [place] [address] | | | LAB-MICRO | | | [...] + + + | [facility] | [address] | [place] [address] | | | LAB-MICRO | | | [...] RLB | | | | | | ([facility]) | | | | | | [facility] | | | | | | [address] | | | | | | [address] | | | | | | [address] [facility] | | | | | | | | | | | | [place] [address] | | | | + + + + + + + + | Specimen | + + | | + + + + + + + | Performing | Address | City/State/Zipcode | Phone Number | | Organization | | | | + + + + + | [facility] | [address] | [place] [address] | | | LAB-MICRO | | | [...] + + + + + | [facility] | [address] | [place] [address] | | | LAB-MICRO | | | [...] + + + | [facility] | [address] | [place] [address] | | | LAB-MICRO | | | [...] RLB | | | | | | ([address] [facility]) | | | | | | [facility] | | | | | | [facility]ermanente [address] | | | | | | [address] | | | | | | [address] | | | | | | [place], | | | | | | [place] [address] | | | | + + + + + + + + | Specimen | + + | | + + + + + + + | Performing | Address | City/State/Zipcode | Phone Number | | Organization | | | | + + + + + | [facility] | [address] | [place] [address] | | | LAB-MICRO | | | [...] NW | | | | | | [address] | | [address] | | | | | | [place] | | | | | | , [place] [address] | | | | + + + + + + + + | Specimen | + + | | + + + + + + + | Performing | Address | City/State/Zipcode | Phone Number | | Organization | | | | + + + + + | [facility] | [address] | [place] [address] | | | LAB-MICRO | | | [...] + + + | [facility] | [address] | [place] [address] | | | LAB-MICRO | | | [...] | + + + + + | [facility] | [address] | [place] [address] | | | LAB-MICRO | | | [...] RLB | | | | | | ([facility]) | | | | | | [facility] | | | | | | Permanente [address] | | | | | | [address] | | | | | | [address] [facility] | | | | | | | | | | | | [place] [address] | | | | + + + + + + + + | Specimen | + + | | + + + + + + + | Performing | Address | City/State/Zipcode | Phone Number | | Organization | | | | + + + + + | [facility] | [address] | [place] [address] | | | LAB-MICRO | | | [...] + + + | [facility] | [address] | [place] [address] | | | LAB-MICRO | | | [...] NW | | | | | | [address] | | [address] | | | | | | [place], | | | | | | [place] [address] | | | | + + + + + + + + | Specimen | + + | | + + + + + + + | Performing | Address | City/State/Zipcode | Phone Number | | Organization | | | | + + + + + | [facility] | [address] | [place] [address] | | | LAB-MICRO | | | [...] + + + | [facility] | [address] | [place] [address] | | | LAB-MICRO | | | [...] NW | | | | | | [address] | | | [address] | | | | | | [place] | | | | | | , [place] [address] | | | | + + + + + + + + | Specimen | + + | | + + + + + + + | Performing | Address | City/State/Zipcode | Phone Number | | Organization | | | | + + + + + | [facility] | [address] | [place] [address] | | | LAB-MICRO | | | [...] + + + | [facility] | [address] | [place] [address] | | | LAB-MICRO | | | [...] + + + + | [facility] | [address] | [place] [address] | | | LAB-MICRO | | | [...] RLB | | | | | | ([address] [facility]) | | | | | | [facility] | | | | | | [address] | | | | | | [address] | | | | | | [address] | | | | | | | | | | | | [place] [address] | | | | + + + + + + + + | Specimen | + + | | + + + + + + + | Performing | Address | City/State/Zipcode | Phone Number | | Organization | | | | + + + + + | [facility] | [address] | [place] [address] | | | LAB-MICRO | | | [...] + + + | [facility] | [address] | [place] [address] | | | LAB-MICRO | | | [...] Regis | | | | | | [facility] NW | | | | | | [address] | | [address] | | | | | | [place], | | | | | | [place] [address] | | | | + + + + + + + + | Specimen | + + | | + + + + + + + | Performing | Address | City/State/Zipcode | Phone Number | | Organization | | | | + + + + + | [facility] | [address] | [place] [address] | | | LAB-MICRO | | | [...] + + + | [facility] | [address] | [place] [address] | | | LAB-MICRO | | | [...] Regis | | | | | | [facility] NW | | | | | | [address] | | [address] | | | | | | [place] | | | | | | , [place] [address] | | | | + + + + + + + + | Specimen | + + | | + + + + + + + | Performing | Address | City/State/Zipcode | Phone Number | | Organization | | | | + + + + + | [facility] | [address] | [place] [address] | | | LAB-MICRO | | | [...] + + + + | [facility] | [address] | [place] [address] | | | LAB-MICRO | | | [...] DEPARTMENT OF | [address] | [place] [address] | | | PATHOLOGY | [address] [...] + + + | [facility] | [address] | [place] [address] | | | PATHOLOGY | [address] [...] ([address] [facility]) | REGIONAL | | [facility] [place] [address] | LABORATORY | | [place] [address] | | + + + + + + + + | Performing | Address | City/State/Zipcode | Phone Number | | Organization | | | | + + + + + | [facility] | [address] | [place] [address] | | | LABORATORY | | | [...] At | + + + | RLB ([facility]) | [facility] | | [facility] | REGIONAL | | [address] [facility] | LABORATORY | | [place] [address] | | + + + + + + + + | Performing | Address | City/State/Zipcode | Phone Number | | Organization | | | | + + + + + | [facility] | [address] | [place] [address] | | | LABORATORY | | | [...] [facility] | [address] | [place], [place] | | | THERAPY | [address] | [address] | | + + + + + OPERATION RECORD (10/16/2010 12:00 AM PST) + + + | Narrative | Performed At | + + + | [id number] | | | [id number] | | | [id number] CHAD | | | [place]AST[place] Osei [id number] | | | Date: 10/16/2010 Attending | | | Surgeon: Kalyan Arias M.D. | | | Stripper Latex(s): Raymond | | | [place]. Preoperative [...] an | | | ED transfer to [facility] approximately 3 days prior to the [...] | | | prophylaxis. Kalyan Arias M.D. [facility] / [id number] / | | | [id number] / [id number] / | | + + + + + | Procedure Note | + + | Kalyan Arias MD - 10/17/2010 9:21 AM PST [id number] | | [id number] [facility] | | [id number] Date: 10/16/2010 Attending Surgeon: Kalyan | | Ortiz Arias M.D. Stripper Latex(s): Raymond Valdes M.D. Preoperative | | Diagnosis(es):1. [...] who is almost 3 years out from [facility] total hip arthroplasty. She had a | [...] She presented as an ED transfer to [facility] approximately 3 | | days priorto [...] aerobic cultures and blood culture bottles per [facility] biopsy protocol. The fascia | [...] | will receivemultimodal DVT prophylaxis. Kalyan Arias M.D.[facility] / [id number] / [id number] | | / [id number] / T: 10/16/2010 | |minimally symptomatic for her, and she did well with the arthroplasty | |itself. She presented as an ED transfer to [facility] approximately 3 days prior | |to [...] | | | |Kalyan Arias M.D. | |[facility] / | |[id number] / [id number] / [id number] / | | | | | | [...] AHN | [address] | [place], [place] | | | SUPRIYA POINT OF CARE | [address] | [address] | | | TESTS | | | [...] DEPARTMENT OF | [address] | [place] [address] | | | PATHOLOGY | [address] [...] + + + + | PRODUCT | [id number] | | [facility] | | | UNIT [...] + + + + | BLOOD | 62411 | | [facility] | | | PRODUCT [...] DEPARTMENT OF | [address] | [place], [place] [address] | | | PATHOLOGY | [address] [...] + + + + | PRODUCT | [id number] | | [facility] | | | UNIT [...] + + + + | BLOOD | 58727 | | [facility] | | | PRODUCT [...] + | [facility] DEPARTMENT | [address] | [place] [address] | | | PATHOLOGY | [address] [...] (H) | 60 - 99 mg/dL | [facility] - | | | GLUCOSE, | [...] AHN | [address] | [place], [place] | | | [facility] | [address] | | | TESTS | | | [...] JIMY | [address] | [place], [place] | | | [facility] | [address] | [address] | | | TESTS | | | | + + + + + CAPILLARY BLOOD GLUCOSE, POC (10/14/2010 11:02 PM PST) + +---------+ + + + | Component | Value | Ref Range | Performed | Pathologist | | | | | At | Signature | + +---------+ + + + | BLOOD | 142 (H) | 60 - 99 mg/dL | [facility] - | | | GLUCOSE, | [...] + + + | [facility] | [address] | [place], [place] | | | [facility] | [address] | [address] | | | TESTS | | | [...] [facility] | [address] | [place], [place] | | | THERAPY | [address] | [address] | | + + + + + [...] view image for the detailed interpretation from [email or web address] results. | CARDIOLOGY | + + + + + + + + | Performing | Address | City/State/Zipcode | Phone Number | | Organization | | | | + + + + + | [facility] | [address] | [place], [place] | | | CARDIOLOGY | [address] | [address] | | + + + + + [...] + + + + | [facility] | [address] | [place] [address] | | | LAB-MICRO | | | [...] DEPARTMENT OF | [address] | [place] [address] | | | PATHOLOGY | [address] [...] DEPARTMENT OF | [address] | [place] [address] | | | PATHOLOGY | [address] [...] + + + | [facility] | [address] | [place] [address] | | | PATHOLOGY | [address] [...] Regis | | | | | | [facility] | | | | | | [address] | | | | | | [address] | | | | | | [place] | | | | | | , [place] [address] | | | | + + + + + + + + | Specimen | + + | | + + + + + + + | Performing | Address | City/State/Zipcode | Phone Number | | Organization | | | | + + + + + | [facility] | [address] | [place] [address] | | | LAB-MICRO | | | [...] DEPARTMENT OF | [address] | [place] [address] | | | PATHOLOGY | [address] [...] DEPARTMENT OF | [address] | [place] [address] | | | PATHOLOGY | [address] [...] + + + | [facility] | [address] | [place] [address] | | | PATHOLOGY | [address] [...] + + + | [facility] | [address] | [place] [address] | | | LAB-MICRO | | | [...] + + + | [facility] | [address] | [place] [address] | | | LAB-MICRO | | | [...] | | + +---------+ + + | [facility] | | | | | RADIOLOGY | [...] DEPARTMENT | [address] | [place] [address] | | | PATHOLOGY | [address] [...] + + + | [facility] | [address] | [place] [address] | | | PATHOLOGY | [address] [...] DEPARTMENT OF | [address] | [place] [address] | | | PATHOLOGY | [address] [...] + + + | [facility] | [address] | [place] [address] | | | LAB-MICRO | | | [...] + + + | [facility] | [address] | [place] [address] | | | PATHOLOGY | [address] [...] | + + + + + | [facility] DEPART[facility] OF | [address] | [place] [address] | | | PATHOLOGY | [address] [...] DEPARTMENT OF | [address] | [place] [address] | | | PATHOLOGY | [address] [...] + + + | [facility] | [address] | [place] [address] | | | PATHOLOGY | [address] [...] effective 10/26/08 | [facility] | | RLB ([facility]) | REGIONAL | | [facility] | LABORATORY | | [address] | | | [place] [address] | | + + + + + + + + | Performing | Address | City/State/Zipcode | Phone Number | | Organization | | | | + + + + + | [facility] | [address] | [place] [address] | | | LABORATORY | | | [...]
--- OUTSIDE RECORDS SUMMARY | ~2019-02-26 | XMS | Encounter Summary ---
Demographics + + + | Address | [address] | | | [place] [address] | + + + | Home Phone [...] Providers + +------+ + | Care Associate Data Scientist Name | Role | Phone | [...] | | inflammatory | [address] | [place] | | | | | reaction | Roxann Ayala | [address] | | | | | due to | [place], [place] | [place], | | | | | internal | [address] | [place] [address] | | | | | joint | Phone: | Phone: | | | | | prosthesis | [phone] | [phone] | | | | | ([facility]) | Fax: | Fax: | | | | | | [phone] | [phone] | +--------+--------+ + + + + Encounter Details +--------+---------+ + + + | Date | Type | Department | Care Team | Description | +--------+---------+ + + + | 05/11/ | Office | Infectious | Carolina Putnam | Infection and | | 2010 | Visit | Diseases at [facility] 3rd | K, PA-C [address] | inflammatory | | | | Floor [address] | [address] [place], | reaction due to | | | | [facility] | [place] [address] | internal joint | | | | Mailcode: L457 | [phone] | prosthesis ([facility]) | | | | Physicians Terrence | | (Primary Dx) | | | | [place], [place] | | | | | | [address] | | | | | | [phone] | | | +--------+---------+ + + + [...] DISEASES CLINIC FOLLOW UP Primary Care Physician: [facility] [address] [place] [address] Ms. Galdamez presents to Infectious Diseases Clinic [...] 18, a nd was therefore admitted to [facility] out of concern for R hip infection. [...] discharged in stable condition on 10/22/2010 to [facility] with OPAT & Orthopedic follow-up planned in 2 weeks ti ut. In OPAT follow-up on 11/09/2010 Ms. Galdamez [...] hip incis ion had healed very well. Em[place]ak had been removed, and there had been [...] W-FE,OTHER MIN (CENTRUM ORAL) Take by mouth. [place]-3 Fatty Acids-Vitamin E (FISH OIL) 1,000 mg [...] follow up in Infectious Diseases Clinic in [place]. We are hap py to be consulted again should infectious complications arise. I spent a total of 20 minutes face to face with the patient and over 50% was time spent in counseling in which we discussed infection, antibiotics, duration of therapy, lab results, a nd follow-up planning. Carolina Putnam PA-C [facility] Department of Infectious Disease Outpatient IV Antibiotic Therapy Clinic (OPAT) Pager ID: [phone] [facility]. 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
--- OUTSIDE RECORDS SUMMARY | ~2019-02-26 | XMS | Encounter Summary ---
Demographics + + + | Address | [address] | | | [place] [address] | + + + | Home Phone | | + + + | Preferred Language | Unknown | + + + | Marital Status | Single | + + + | Pentecostalism Affiliation | Unknown | + + + | Race | Unknown | + + + | Ethnic Group | Unknown | + + + Author + + + | Author | [employer] | + + + | Organization | [facility] [facility] | + + + | Address | Unknown | + + + | Phone | Unavailable | + + + Support + + +---------+ + | Name | Relationship | Address | Phone | + + +---------+ + | Kristel Teresa | ECON | Unknown | | + + +---------+ + Care Team Providers + +------+ + | Care Technician'S Helper Name | Role | Phone | [...] | | [address] | [facility] [place] | | | | | [place] | [address] | | | | | [address] | | | | | | [phone] | | | +--------+ + + + [...] [place] | | | | | | [address] | | | | | | | | +--------+---------+ + + + as of this encounter Visit Diagnoses Not on filein this encounter"
--- OUTSIDE RECORDS SUMMARY | ~2019-02-26 | XMS | Encounter Summary ---
Demographics + + + | Address | [address] | | | [place] [address] | + + + | Home Phone [...] | Author | [facility] | + + + | Organization | [facility] | + + + | Address | Unknown | + + + | Phone | Unavailable | + + + Support + + + + + | Name | Relationship | Address | Phone | + + + + + | Casandra Smith | ROBERTO | [place] | | + + + + + Care Team Providers + +------+ + | Care Counselor/Art Therapist Name | Role | Phone | [...] Pankaj | | | | | | [facility] | | | | | | Mailcode: PV450 | | | | | | [address] | | | | | | [place], [place] | | | | | | [address] | | | | | | [phone] | | | +--------+ + + + [...] | | | | | VIEWS | [id number] Name | | | | | RIGHT W/ | : SHELBY GALDAMEZ C | | | | | PELVIS 1 | Birthday: | | | | | VIEW | 1960 Sex: | | | | | | F Alias:Patient | | | | | | Location: [id number]: | | | | | | Outpatient [...] # | | | | | | [id number]:PELVIS | | | | | | ONE [...] | | + +---------+ + + | [facility] DEPARTMENT OF | | | | | RADIOLOGY | | | | + +---------+ + + documented in this encounter Visit Diagnoses + + | Diagnosis | + + | Osteoarthritis of hip Osteoarthrosis, unspecified whether generalized or localized, | | pelvic region and thigh | + + documented in this encounter"
--- OUTSIDE RECORDS SUMMARY | ~2019-02-26 | XMS | Encounter Summary ---
Demographics + + + | Address | [address] | | | [place] [address] | + + + | Home Phone [...] + + | Author | [facility] | + + + | Organization | [facility] | + + + | [...] Team Providers + +------+ + | Care Station Engineer Main Line Name | Role | Phone | + [...] as of this encounter Progress Notes Interface, Long Winder Tender In - 04/28/2005 10:57 PM PDTClinic Date: [...] resolved, and she attributes to eating a [place] pork and vegetable lap dish called [employer]. Physical Examination General: Shelby is in good [...] drain is in place. Lloyd Garcia M.D. Environmental Control Administrator-Orthopedics and Rehabilitation / SALEEM [id number] / [id number] / [id number] / cc: Everett Guillen M.D. [address] [place] [id number] signed by Interface, Long Winder Tender In at 04/28/2005 10:57 PM PDTdocumented in this encounter Plan of Treatment Not on filedocumented as of this encounter Visit Diagnoses Not on filedocumented in this encounter"
--- OUTSIDE RECORDS SUMMARY | ~2019-02-26 | XMS | Encounter Summary ---
Demographics + + + | Address | [address] | | | [place] [address] | + + + | Home Phone [...] Providers + +------+ + | Care Production Expediter Name | Role | Phone | + +------+ + PCP | Unavailable | + +------+ + Encounter Details +--------+ + + + + | Date | Type | Department | Care Team | Description | +--------+ + + + + | 12/06/ | Results | Orthopaedics at | Gino Baker MD | | | 2005 | Only | [facility] [address] | [address] | | | | | [facility] | [facility], | | | | | Mailcode: PV430 | [place] [address] | | | | | Physician's Terrence | | | | | | [place], [place] | | | | | | [address] | | | | | | [phone] | | | +--------+ + + + [...] | | | | | | bursa. After patient | | | | | | repositioning andneedle | | | | | | reinsertion, the needle | | | | | | was confirmed within the | | | | | | jointspace. | | | | | | [...] | | | | injection of right | | | | | | hip. The | | | | | | patient'sright hip pain | | | | | | improved significantly | | | | | | following the procedure. | | | | | | | [...] | | | | | | bursa. After patient | | | | | | repositioning andneedle | | | | | | reinsertion, the needle | | | | | | was confirmed within the | | | | | | jointspace. | | | | | | [...] | | | | injection of right | | | | | | hip. The | | | | | | patient'sright hip pain | | | | | | improved significantly | | | | | | following the procedure. | | | | | | | [...]
--- OUTSIDE RECORDS SUMMARY | ~2019-02-26 | XMS | Encounter Summary ---
Demographics + + + | Address | [address] | | | [place] [address] | + + + | Home Phone [...] Team Providers + +------+ + | Care Library Historian Name | Role | Phone | + [...] | unspecified | [address] | [address] [place], | | | | | whether | [place], [place] | [place] | | | | | generalized | [address] | [address] | | | | | or | Phone: | Phone: | | | | | localized, | [phone] | [phone] | | | | | pelvic | Fax: | Fax: | | | | | region and | [phone] | [phone] | | | | | thigh | | | | | | | Osteoarthrit | | | | | | | is of Hip | | | | | | | Procedures | | | | | | | [place] TOTAL HIP | | | | | | | | | | | | | | ARTHROPLASTY | | | | | | | [place] | | | | | | | RECONSTRUC | | | | | | | HIP | | | | | | | SOCKET,RESEC | | | | | | | FEM HEAD | | | | | | | [place] REMOVAL | | | | | | | OF ISCHIAL | | | | | | | BURSA [place] | | | | | | | [...] [address] PA-C | Arthroplasty) | | | | [facility] | | (Primary Dx) | | | | Mailcode: PV430 | | | | | | Physician's Terrence | | | | | | [place], [place] | | | | | | [address] | | | | | | [phone] | | | +--------+---------+ + + + [...] JORDY Germain. KALYAN COLBY MD [facility] ORTHOP[facility]EDICS & REHABILITATION [address] [place] [address] Mailcode: Pv430 [place] [address] Tesfaye Haskins PA-C - 10/14/2008 [...] is being worked up now by a chief counsel for this issue. OBJECTIVE: - On examination [...]
--- OUTSIDE RECORDS SUMMARY | ~2019-02-26 | XMS | Encounter Summary ---
Demographics + + + | Address | [address] | | | [place] [address] | + + + | Home Phone [...] + +------+ + | Care Instrument And Controls Technician Name | Role | Phone | [...] | Transcriptions | + + | Interface, Clinic Supervisor In - 03/06/2006 1:10 AM PDT Date: | | 08/16/2003Attending Surgeon: Lloyd Garcia M.D.Plant Operations Manager(s): | | Benson Boone M.D.Preoperative Diagnosis:Right hip [...] cc per Arreaga drain to | | 8-Cameroonian tubes to 1 median Hemovac suctioncanister.Postoperative Plan:Ancef [...] brought to | | OperatingRoom #6 at [facility] Operating Room suite.She | | was [...] Vicryl mattress sutures andaddition | | of hfewyq-cv-zslrp 0 Vicryl. The fascial layer with mmcixmsbdezywqwhd-wq-jcqnb 0 | | Vicryl sutures. Fadumo's fascia [...] to | | leaving the room.Lloyd Garcia M.D.Seo Associate, Orthopedics and | | Rehabilitation / [id number] / [id number] / [id number] / [id number]: 08/16/2003T: | | 08/16/2003cc:Ninfa Guillen M.D.[address] [place] [address] | | | |The posterior superior iliac [...] Vicryl mattress sutures and | |addition of fihxqq-tn-vrrqp 0 Vicryl. The fascial layer with interrupted | |jfkpfg-lu-iiudw 0 Vicryl sutures. Fadumo's fascia was closed [...] | | | |Lloyd Garcia M.D. | |Seo Associate, Orthopedics and Rehabilitation | | | | / | |[id number] / [id number] / [id number] / [id number] | | | | | | | |cc: | | | |Ninfa Guillen M.D. | |[address], | |[place] [address] | + + documented in this encounter Visit Diagnoses Not on filedocumented in this encounter"
--- OUTSIDE RECORDS SUMMARY | ~2019-02-26 | XMS | Encounter Summary ---
Demographics + + + | Address | [address] | | | [place] [address] | + + + | Home Phone [...] Author + + + | Author | [facility] | + + + | Organization | [facility] | + + + | [...] Providers + +------+ + | Care Dramatic Agent Name | Role | Phone | [...] as of this encounter Progress Notes Interface, Center Medical Director In - 08/20/2006 3:01 AM PSTCLINIC [...] views. Fox Chopra M.D. BETH / SALEEM [id number] / [id number] / [id number] / C: 02/18/2000 jerman Noland M.D. [place], [place] [address] [place] [address], [address] [place], [place] [id number] signed by Interface, Center Medical Director In at 08/20/2006 3:01 AM PSTInterface, Center Medical Director In - 08/20/2006 3:01 AM PSTCLINIC [...] from her physical therapist, Rustam Sykes, at [facility] in [place], [place], which indicates that she has been [...] in any additional way at phone number [phone]. PHYSICAL EXAMINATION: Essentially unchanged from previous exams. [...] necessary at this point. Lloyd Garcia M.D. Asset Recovery Specialist, Orthopedics and Rehabilitation / [id number] / [id number] / [id number] / cc: Helio Noland MD [address] [place], [place] [address] [place] [address] documented in this encounter Plan of Treatment Not on filedocumented as of this encounter Visit Diagnoses Not on filedocumented in this encounter"
--- OUTSIDE RECORDS SUMMARY | ~2019-02-26 | XMS | Encounter Summary ---
Demographics + + + | Address | [address] | | | [place] [address] | + + + | Home Phone [...] Team Providers + +------+ + | Care Analyst Geochemical Prospecting Name | Role | Phone | + [...] | | | | | Roxann Ayala [place] | | | | | | [place] [address] | | | | | | [phone] | | +--------+ + + + + [...] | HEP B SURF | < 10.0Comment: | mIU/mL | | | | AB QUANT | 10 mIU/mL or greater is | | | | | | predictive of | | | | | | immunity Test | | | | | | performed by [facility] | | | | | | [facility] | | | | | | [facility]ly [facility]. | | | | + + + + + + + + | Specimen | + + | | + + + + + + + | Performing | Address | City/State/Zipcode | Phone Number | | Organization | | | | + + + + + | [facility] | [address] | [place] [address] | | | LABORATORY | | | | + + + + + documented in this encounter Visit Diagnoses Not on filedocumented in this encounter"
--- OUTSIDE RECORDS SUMMARY | ~2019-02-26 | XMS | Encounter Summary ---
Demographics + + + | Address | [address] | | | [place] [address] | + + + | Home Phone [...] Providers + +------+ + | Care Service Or Work Dispatcher Chief Name | Role | Phone | [...] Lira | | | | | | [facility] | | | | | | Mailcode: PV430 | | | | | | Physician'yokasta Ocampo | | | | | | [place], [place] | | | | | | [address] | | | | | | [phone] | | | +--------+ + + + [...] [place] | | | | | | [place], LATERAL | | | | | [...] | | | | | VIEWS | ADLIA GONZALEZ, | | | | | | SHELBY | | | | | | C | | | | | | | | | | | | -2 | | | | | | 699 THE FINDINGS AND | | | | | | INTERPRETATIONS HAVE | | | | | | BEEN REPORTED ON | | | | | | THEGPEL1, ACC# [id number], | | | | | | DONE [...] | [facility] DEPARTMENT | | | | | RADIOLOGY | | | | + +---------+ + + documented in this encounter Visit Diagnoses Not on filedocumented in this encounter"
--- OUTSIDE RECORDS SUMMARY | ~2019-02-26 | XMS | Encounter Summary ---
Demographics + + + | Address | [address] | | | [place] [address] | + + + | Home Phone [...] Team Providers + +------+ + | Care Tennis Centre Manager Name | Role | Phone | + +------+ + | Marta Jenkins ENERGY ENGINEER | PCP | | + +------+ + Encounter Details +--------+ + + + + | Date | Type | Department | Care Team | Description | +--------+ + + + + | 11/19/ | Documentati | Digestive Health | Wanda López ACNP | | | 2019 | on | Center at [facility] [address] | [address] | | | | | [address] | Roxann Ayala [place], | | | | | Mailcode: [place] | [place] [address] | | | | | for Health and | [phone] | | | | | [facility], [facility] [address] | | | | | | [place], [place] | | | | | | [address] | | | | | | [phone] | | | +--------+ + + + [...]
--- OUTSIDE RECORDS SUMMARY | ~2019-02-26 | XMS | Encounter Summary ---
Demographics + + + | Address | [address] | | | [place] [address] | + + + | Home Phone [...] Team Providers + +------+ + | Care Brick Baker Name | Role | Phone | + [...] TARUN Bergman | | | | | [facility] | [facility], | | | | | Mailcode: PV430 | [place] [address] | | | | | [facility] | | | | | | [place], [place] | | | | | | [address] | | | | | | [phone] | | | +--------+ + + + [...]
--- OUTSIDE RECORDS SUMMARY | ~2019-02-26 | XMS | Encounter Summary ---
Demographics + + + | Address | [address] | | | [place] [address] | + + + | Home Phone [...] Providers + +------+ + | Care Journeyman Welder Name | Role | Phone | [...]
--- OUTSIDE RECORDS SUMMARY | ~2019-02-26 | XMS | Encounter Summary ---
Demographics + + + | Address | [address] | | | [place] [address] | + + + | Home Phone [...] Providers + +------+ + | Care Aircraft Pilot Name | Role | Phone | + [...] | | | is of hip | [facility] | [facility] | | | | | Procedures | Rd | Rd [place], | | | | | CONSULT TO | [place], [place] | [place] [address] | | | | | ORTHOPEDICS | [address] | | | | | | AND [...] [address] | [address] | Hip (Primary Dx) | | | | [facility] [address] | Roxann Ayala [place], | | | | | Mailcode: PV430 | [place] [address] | | | | | [facility] | | | | | | [place], [place] | | | | | | [address] | | | | | | [phone] | | | +--------+---------+ + + + [...] as of this encounter Progress Notes Interface, Hard Metals Engraver Hand In - 10/05/2006 2:33 AM PST [id number] CHAD Osei [id number] Clinic Date: 10/02/2006 Clinic: Orthopaedics Shelby Galdamez [...] Acevedo. Gino Baker M.D. KEE / SALEEM [id number] / [id number] / [id number] / [id number] cc: Quintin Tirado Electronically signed by Gino [...]
--- OUTSIDE RECORDS SUMMARY | ~2019-02-26 | XMS | Encounter Summary ---
Demographics + + + | Address | [address] | | | [place] [address] | + + + | Home Phone [...] Providers + +------+ + | Care Oracle Distribution Consultant Name | Role | Phone | + +------+ + | No Pcp Per Patient | PCP | Unavailable | + +------+ + Encounter Details +--------+ + + + + | Date | Type | Department | Care Team | Description | +--------+ + + + + | 12/15/ | Supplier Development Manager | Orthopaedics at | Kalyan Arias MD | JUAN DAVID (Total Hip | | 2008 | | [facility] [address] | [address] | Arthroplasty) | | | | [facility] | [facility] [address] | (Primary Dx) | | | | Mailcode: PV430 | [place], [place] | | | | | Physician's Ernestoilicheo | [address] | | | | | [place], [place] | [phone] | | | | | [address] | | | | | | [phone] | | | +--------+ + + + [...]
--- OUTSIDE RECORDS SUMMARY | ~2019-02-26 | XMS | Encounter Summary ---
Demographics + + + | Address | [address] | | | [place] [address] | + + + | Home Phone [...] Team Providers + +------+ + | Care Pharmacist Helper Name | Role | Phone | [...] as of this encounter Progress Notes Interface, Director Of Admissions In - 08/28/2006 3:05 AM PSTCLINIC DATE: [...] to Dr. Gant. Benson Cooper M.D. / [id number] / [id number] / [id number] / [id number] C: 11/27/1999 kavita cc: Helio Noland M.D. [facility] [address] Lloyd Garcia M.D. Department of Orthopedics documented in this encounter Plan of Treatment Not on filedocumented as of this encounter Visit Diagnoses Not on filedocumented in this encounter"
--- OUTSIDE RECORDS SUMMARY | ~2019-02-26 | XMS | Encounter Summary ---
Demographics + + + | Address | [address] | | | [place] [address] | + + + | Home Phone [...] Team Providers + +------+ + | Care Natural Gas Plant Supervisor Name | Role | Phone | [...] of this encounter Progress Notes Interface, Director Global Intelligence In - 06/11/2006 3:03 AM PDT [place] [facility] and [place] [address] [place], [place] [address] FAX Department of Orthopaedics, [facility] [id number] November 27, 2001 Kalyan Wu M.D. [facility]-Or[facility] PV 430 RE: SHELBY GALDAMEZ MR #: [...] the low back several years ago in [place], [place] which she described as showing deteriorating vertebrae at "T11-T12." She has not had any physical therapy for back. She does work out at a gym under the direction of physical therapy in [place]. She would like to start some exercises [...] contact me. Sincerely yours, Vince Krishna M.D. [facility] / [id number] / [id number] / [id number] / [id number] cc: Lloyd Garcia M.D. Orthopedics PV 430 docume nted in this encounter Plan of Treatment Not on filedocumented as of this encounter Visit Diagnoses Not on filedocumented in this encounter
--- OUTSIDE RECORDS SUMMARY | ~2019-02-26 | XMS | Encounter Summary ---
Demographics + + + | Address | [address] | | | [place] [address] | + + + | Home Phone [...] Author + + + | Author | [facility] | + + + | Organization | [facility] | + + + | Address [...] Providers + +------+ + | Care Ice Cutter Name | Role | Phone | [...] as of this encounter Progress Notes Interface, Invoice Checker In - 07/22/2006 3:18 AM PDTCLINIC DATE: [...] that. Jason Castano M.A. TAYE / SALEEM [id number] / [id number] / [id number] / Tdocumented in this encounter Plan of Treatment Not on filedocumented as of this encounter Visit Diagnoses Not on filedocumented in this encounter"
--- OUTSIDE RECORDS SUMMARY | ~2019-02-26 | XMS | Encounter Summary ---
Demographics + + + | Address | [address] | | | [place] [address] | + + + | Home Phone [...] Team Providers + +------+ + | Care Dyeing Machine Back Tender Name | Role | Phone | [...] | | | is of hip | [facility] | [address] | | | | | Procedures | Rd | Rd [place], | | | | | CONSULT TO | [place], [place] | [place] [address] | | | | | ORTHOPEDICS | [address] | | | | | | AND [...] | | | | | [place] | [address] [facility] | | | | | | MEDICAL | [facility] | | | | | | CLINIC [address] | [address] | | | | | | [address] | [place] | | | | | | [place], [place] | [address] | | | | | | [address] | | +--------+--------+ + + + + Encounter Details +--------+---------+ + + + | Date | Type | Department | Care Team | Description | +--------+---------+ + + + | 07/18/ | Office | Orthopaedics at | Lloyd Garcia MD | Osteoarthritis of | | 2005 | Visit | [facility] [address] | | Hip (Primary Dx); | | | | [facility] | | Hip Pain | | | | Mailcode: PV430 | | | | | | Physician's Terrence | | | | | | [place], [place] | | | | | | [address] | | | | | | [phone] | | | +--------+---------+ + + + [...] 05/23/2004, for hip pain who returns to [facility] after a right hip injection [...] states, that he recieves a letter from [facility] indicating the continued need. She has [...]
--- OUTSIDE RECORDS SUMMARY | ~2019-02-26 | XMS | Encounter Summary ---
Demographics + + + | Address | [address] | | | [place] [address] | + + + | Home Phone [...] Team Providers + +------+ + | Care Mud Analysis Well Logging Captain Name | Role | Phone | [...] as of this encounter Progress Notes Interface, Skiing Instructor In - 06/19/2006 1:01 AM PDT [place] [facility] and [place] [address] [place], [place] [address] FAX Department of Orthopaedics, [facility] [id number] October 15, 2001 Lloyd Garcia M.D. Department of Orthopedics and Rehabilitation/[facility] PV-430 RE: SHELBY GALDAMEZ MR #: [id number] DOS: 10/15/[address] Desai: Thank you [...] Sincerely, Kalyan Wu M.D. TE / HS [id number] / [id number] / [id number] / [id number] cc: Chan Krishna M.D. Department of Orthopedics and Rehabilitation/[facility] OP-31 Helio Noland M.D. [address], [place] [id number] signed by Interface, Skiing Instructor In at 06/19/2006 1: 01 AM PDTdocumented in this encounter Plan of Treatment Not on filedocumented as of this encounter Visit Diagnoses Not on filedocumented in this encounter"
--- OUTSIDE RECORDS SUMMARY | ~2019-02-26 | XMS | Encounter Summary ---
Demographics + + + | Address | [address] | | | [place] [address] | + + + | Home Phone [...] Team Providers + +------+ + | Care Security Sme Name | Role | Phone | + [...] as of this encounter Progress Notes Interface, Tip Bander In - 06/03/2006 3:06 AM PDTCLINIC DATE: [...] by her new primary care physician in [place], and she is requesting a repeat hip [...] this would be inadvisable. Lloyd Garcia M.D. Propagator Laborer, Orthopedics and Rehabilitation / HS [id number] / [id number] / [id number] / [id number] cc: Ninfa Guillen M.D. [address] [facility] [place], [place] [id number] signed by Interface, Tip Bander In at 06/03/2006 3:06 AM PDTInterface, Tip Bander In - 06/03/2006 3:06 AM PDTCLINIC DATE: [...] go ahead and send her back to [facility] Radiology Musculoskeletal specialist for a right intraarticular hip injection as this is what she wants. We will currently hold off on hip replacement due to her young age, and she can follow up back in the clinic in 6months' time. Tr Mcghee M.D. Lloyd Garcia M.D. / [id number] / [id number] / [id number] / Tdocumented in this encounter Plan of Treatment Not on filedocumented as of this encounter Visit Diagnoses Not on filedocumented in this encounter"
--- OUTSIDE RECORDS SUMMARY | ~2019-02-26 | XMS | Encounter Summary ---
Demographics + + + | Address | [address] | | | [place] [address] | + + + | Home Phone [...] Team Providers + +------+ + | Care Learning Coordinator Name | Role | Phone | [...] | | | | | [address] [place], | | | | | | [place] [address] | | | | | | [phone] | | | | | | | [...] | | | | | | LATERAL | | | | | | VIEWS: 09/25/2003 | | | | | | [id number] hours | | | | | | Dictated 09/25/2003 | | | | | | COMPARISON: | | | | | | 3. FINDINGS: Since | | | | | | the previous study there | | | | | | has been | | | | | [...] | | | | | | greater | | | | | | trochanter. There is | | | | | [...] | | | | | | 1. Development of | | | | | | soft tissue gas deep to | | | | | | the staple line. | | | | | | 2. Increased | | | | | | distraction at the | | | | | | greater trochanteric | | | | | | osteotomy sincethe | | | | | | previous study. | | | | | | 3. No change in the | | | | | | appearance [...] + + + | [facility] | [address] | [place] [address] | | | LABORATORY | | | [...] + | [facility] DEPARTMENT OF | [address] [facility] | [place] [address] | | | PATHOLOGY | [address] | | | + + + + + | [facility] DEPARTMENT OF | [address] [facility] | [place] [address] | | | PATHOLOGY | [address] [...] | [facility] | [address] | [place] [address] | | | PATHOLOGY | [address] | | | + + + + + | [facility] | [address] | [place] [address] | | | PATHOLOGY | [address] [...] [place] | [address] | [place] [address] | | | PATHOLOGY | [address] | | | + + + + + | [facility] | [address] | [place] [address] | | | PATHOLOGY | [address] | | | + + + + + documented in this encounter Visit Diagnoses Not on filedocumented in this encounter"
--- OUTSIDE RECORDS SUMMARY | ~2019-02-26 | XMS | Encounter Summary ---
Demographics + + + | Address | [address] | | | [place] [address] | + + + | Home Phone [...] Team Providers + +------+ + | Care Judicial Clerk Name | Role | Phone | [...]
--- OUTSIDE RECORDS SUMMARY | ~2019-02-26 | XMS | Encounter Summary ---
Demographics + + + | Address | [address] | | | [place] [address] | + + + | Home Phone [...] Providers + +------+ + | Care Switchboard Operator Name | Role | Phone | [...] + + | [facility] | [address] [facility] | [place] [address] | | | PATHOLOGY | [address] | | | + + + + + | [facility] | [facility] | [place] [address] | | | PATHOLOGY | [address] [...] + + + + + | [facility] DEPARTMENT OF | [address] | [place] [address] | | | PATHOLOGY | [address] | | | + + + + + | [facility] DEPARTMENT OF | [address] | [place] [address] | | | PATHOLOGY | [address] [...] + + + | [facility] | [facility] | [place] [address] | | | PATHOLOGY | [address] | | | + + + + + | [facility] | [facility] [address] | [place] [address] | | | PATHOLOGY | [address] [...] + | [facility] | [address] | [place] [address] | | | PATHOLOGY | [address] | | | + + + + + | [facility] | [address] | [place] [address] | | | PATHOLOGY | [address] | | | + + + + + documented in this encounter Visit Diagnoses Not on filedocumented in this encounter"
--- OUTSIDE RECORDS SUMMARY | ~2019-02-26 | XMS | Encounter Summary ---
Demographics + + + | Address | [address] | | | [place] [address] | + + + | Home Phone [...] Team Providers + +------+ + | Care Pants Presser Name | Role | Phone | + [...] [address] | | | | | [facility] | [facility], | | | | | Mailcode: PV430 | [place] [address] | | | | | Physician's Terrence | | | | | | [place], [place] | | | | | | [address] | | | | | | [phone] | | | +--------+ + + + [...] | | + +---------+ + + | [facility] DEPARTMENT OF | | | [...] | | + +---------+ + + | [facility] DEPARTMENT OF | | | | | RADIOLOGY | | | | + +---------+ + + documented in this encounter Visit Diagnoses Not on filedocumented in this encounter"
--- OUTSIDE RECORDS SUMMARY | ~2019-02-26 | XMS | Encounter Summary ---
Demographics + + + | Address | [address] | | | [place] [address] | + + + | Home Phone [...] Team Providers + +------+ + | Care Meter Changes Records Clerk Name | Role | Phone [...] | Only | [facility] [address] | | | | | | [facility] | | | | | | Mailcode: PV430 | | | | | | Physician'yokasta Ocampo | | | | | | [place], [place] | | | | | | [address] | | | | | | [phone] | | | +--------+ + + + [...] | + + + + + | [facility] | [address] | [place] [address] | | | LABORATORY | | | [...] | + + + + + | [facility] | [address] | [place] [address] | | | PATHOLOGY | [address] | | | + + + + + | [facility] | [address] | [place] [address] | | | PATHOLOGY | [address] [...] DEPARTMENT OF | [address] | [place], [place] [address] | | | PATHOLOGY | [address] | | | + + + + + | [facility] DEPARTMENT OF | [address] | [place] [address] | | | PATHOLOGY | [address] [...] | + + + + + | [facility] | [address] [facility] | [place] [address] | | | PATHOLOGY | [address] | | | + + + + + | [facility] | [address] [place] [address] | [place] [address] | | | PATHOLOGY | [address] [...]
--- OUTSIDE RECORDS SUMMARY | ~2019-02-26 | XMS | Encounter Summary ---
Demographics + + + | Address | [address] | | | [place] [address] | + + + | Home Phone [...] Providers + +------+ + | Care Tree Expert Name | Role | Phone | [...] [address] | drainage | | | | [address] | [address] | | | | | Mailcode: PV430 | [place], [place] | | | | | Physician's Ernestoilion | [address] | | | | | [place], [place] | [phone] | | | | | [address] | | | | | | [phone] | | | +--------+ + + + [...]
--- OUTSIDE RECORDS SUMMARY | ~2019-02-26 | XMS | Encounter Summary ---
Demographics + + + | Address | [address] | | | [place] [address] | + + + | Home Phone [...] Team Providers + +------+ + | Care Substation Design Draftsperson Name | Role | Phone | + [...] | Procedures | [address] | [address] [place], | | | | | CONSULT TO | [place], [place] | [place] | | | | | ORTHOPEDICS | [address] | [address] | | | | | AND | Phone: | Phone: | | | | | REHABILITATI | [phone] | [phone] | | | | | ON | Fax: | Fax: | | | | | | [phone] | [phone] | +--------+--------+ + + + + Diagnostic [...] | | y | [address] | [facility] | | | | | Procedures | [facility] | Mailcode: | | | | | MRI SPINE | [place], [place] | [address] | | | | | LUMBAR [place] | [address] | [place] | | | | | CONT | Phone: | Research | | | | | | [phone] | [place] | | | | | | Fax: | [place], [place] | | | | | | [phone] | [address] | | | | | | | Phone: | | | | | | | [phone] | | | | | | | Fax: | | | | | | | [phone] | +--------+--------+ + + + + Reason [...] | | | Orthopedics | | | [address] | | | | | | | [address] | | | | | | | Jamie [place], | | | | | | | [place] | | | | | | | [address] | | | | | | | Phone: | | | | | | | [phone] | | | | | | | Fax: | | | | | | | [phone] | +--------+--------+ + + + + Encounter Details +--------+---------+ + + + | Date | Type | Department | Care Team | Description | +--------+---------+ + + + | 07/06/ | Office | Orthopaedics at | Tyrone Colby MD | Lumbar | | 2009 | Visit | [facility] [address] | [address] | radiculopathy; Hip | | | | [facility] | [facility] [address] | replacement | | | | Mailcode: PV430 | [place], [place] | | | | | Physician's Pavilion | [address] | | | | | [place], [place] | [phone] | | | | | [address] | | | | | | [phone] | | | +--------+---------+ + + + [...] plan of care. TYRONE COLBY MD [facility] ORTHOPAEDICS & REHABILITATION [facility] Mailcode: Pv430 Physician's [facility] [address] Taz Grider M D - 07/06/2010 9:32 [...] | | | | | | of J2noqfokon/superior | | | | | | corner, [...] + +---------+ + + | [facility] DEPARTMENT OF | | | [...]
--- OUTSIDE RECORDS SUMMARY | ~2019-02-26 | XMS | Encounter Summary ---
Demographics + + + | Address | [address] | | | [place] [address] | + + + | Home Phone [...] Providers + +------+ + | Care Tube Roller Name | Role | Phone | + [...] as of this encounter Progress Notes Interface, Clerical Supervisor In - 08/20/2006 3:01 AM PSTCLINIC DATE: [...] primary care provider. Alpa Ritter LPN / [id number] / [id number] / [id number] / Tdocumented in this encounter Plan of Treatment Not on filedocumented as of this encounter Visit Diagnoses Not on filedocumented in this encounter"
--- OUTSIDE RECORDS SUMMARY | ~2019-02-26 | XMS | Encounter Summary ---
Demographics + + + | Address | [address] | | | [place] [address] | + + + | Home Phone [...] Team Providers + +------+ + | Care Supervisory Cbp Officer Name | Role | Phone | [...] as of this encounter Progress Notes Interface, Construction Secretary In - 08/31/2006 1:03 AM PSTCLINIC DATE: [...] more. PHYSICAL EXAMINATION: She ambulates with a lxqgfpvd-nm-nnrohq right coxalgic gait leaning over the right [...] her primary care physician. Lloyd Garcia M.D. Clarifier Operator, Orthopedics and Rehabilitation / [id number] / [id number] / [id number] / [id number] C: 10/23/1999 kavita cc: Helio Noland M.D. [facility] [address] Benson Cooper M.D. [facility] Orthopedics Rehabilitation [address], [address] [place] documented in this encounter Plan of Treatment Not on filedocumented as of this encounter Visit Diagnoses Not on filedocumented in this encounter"
--- OUTSIDE RECORDS SUMMARY | ~2019-02-26 | XMS | Encounter Summary ---
Demographics + + + | Address | [address] | | | [place] [address] | + + + | Home Phone [...] Team Providers + +------+ + | Care Photograph Editor Name | Role | Phone | [...] as of this encounter Progress Notes Interface, Ethnoarchaeology Professor In - 08/28/2006 3:05 AM PSTCLINIC DATE: [...] to Dr. Gant. Benson Cooper M.D. / [id number] / [id number] / [id number] / [id number] C: 11/27/1999 kavita cc: Helio Noland M.D. [facility] [address] Lloyd Garcia M.D. Department of Orthopedics documented in this encounter Plan of Treatment Not on filedocumented as of this encounter Visit Diagnoses Not on filedocumented in this encounter"
--- OUTSIDE RECORDS SUMMARY | ~2019-02-26 | XMS | Encounter Summary ---
Demographics + + + | Address | [address] | | | [place] [address] | + + + | Home Phone [...] + + + | Author | [facility] | + + + | Organization | [facility] | + + + | Address | [...] Providers + +------+ + | Care Occupational Hygienist Name | Role | Phone | + [...] as of this encounter Progress Notes Interface, Soil Biology Teacher In - 04/28/2005 8:48 PM PDTClinic Date: [...] well but presented to the ER in [place] approximately a week and half ago with [...] up with her primary care doctor in [place] and return to clinic and see me on an as-needed basis only. Lloyd Garcia M.D. Ticker Installer, Orthopedics and Rehabilitation / [id number] / [id number] / [id number] / [id number] cc: Dr. Pearce [facility] [address] [place] [address] Rinaldi M.D. [address] [place] [address], [place] [id number] signed by Interface, Soil Biology Teacher In at 04/28/2005 8:4 8 PM PDTdocumented in this encounter Plan of Treatment Not on filedocumented as of this encounter Visit Diagnoses Not on filedocumented in this encounter"
--- OUTSIDE RECORDS SUMMARY | ~2019-02-26 | XMS | Encounter Summary ---
Demographics + + + | Address | [address] | | | [place] [address] | + + + | Home Phone [...] Team Providers + +------+ + | Care Video Rental Clerk Name | Role | Phone [...] Lira | | | | | | [facility] | | | | | | Mailcode: PV430 | | | | | | Physician'yokasta Ocampo | | | | | | [place], [place] | | | | | | [address] | | | | | | [phone] | | | +--------+ + + + [...] + + + + | [facility] | [address] [facility] | [place] [address] | | | PATHOLOGY | [address] | | | + + + + + | [facility] | [address] [facility] | [place] [address] | | | PATHOLOGY | [address] [...] | + + + + + | [facility] DEPARTMENT OF | [address] | [place] [address] | | | PATHOLOGY | [address] | | | + + + + + | [facility] DEPARTMENT | [address] | [place] [address] | | | PATHOLOGY | [address] [...] | + + + + + | [facility] DEPARTMENT OF | [address] | [place] [address] | | | PATHOLOGY | [address] | | | + + + + + | [facility] | [address] | [place] [address] | | | PATHOLOGY | [address] [...] | + + + + + | [facility] DEPARTMENT | [address] | [place] [address] | | | PATHOLOGY | [address] | | | + + + + + | [facility] | [facility] [address] | [place] [address] | | | PATHOLOGY | [address] [...] trochanteric | | | | | | | | | | | | osteotomy. [...] hardware | | | | | | loosening. The | | | | | | postoperative right | | | | | | hipjoint appears | | | | | [...] | | + +---------+ + + | [facility] DEPARTMENT OF | | | | | RADIOLOGY | | | | + +---------+ + + documented in this encounter Visit Diagnoses Not on filedocumented in this encounter"
--- OUTSIDE RECORDS SUMMARY | ~2019-02-26 | XMS | Encounter Summary ---
Demographics + + + | Address | [address] | | | [place] [address] | + + + | Home Phone [...] Author + + + | Author | [facility] | + + + | Organization | [facility] | + + + | Address [...] Team Providers + +------+ + | Care Spotter Driver Name | Role | Phone | [...] Infection | Kalyan Barrientos MD | Carolina K, | | | | | and | [address] | [address] | | | | | inflammatory | [address] | [facility] | | | | | reaction | [address] | [place], [place] | | | | | due to | [place] | [address] | | | | | unspecified | [address] | Phone: | | | | | device, | Phone: | [phone] | | | | | implant, and | [phone] | Fax: | | | | | graft | Fax: | [phone] | | | | | | [phone] | | +--------+--------+ + + + + Encounter Details +--------+---------+ + + + | Date | Type | Department | Care Team | Description | +--------+---------+ + + + | 11/09/ | Office | Infectious | Carolina Putnam | Prosthetic joint | | 2010 | Visit | Diseases at [facility] 3rd | [address] | infection (HCC) | | | | Floor [address] | [facility] [place], | (Primary Dx) | | | | [facility] | [place] [address] | | | | | Mailcode: L457 | [phone] | | | | | Physicians Terrence | | | | | | [place], [place] | | | | | | [address] | | | | | | [phone] | | | +--------+---------+ + + + [...] CLINIC FOLLOW UP Primary Care [place]: [place] [address] Ms. 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 Fr quintenen section biopsies were sent, and there was [...] a nd was therefore admitted to [facility] out of concern for R hip [...] was left in place. Culture data: (Note: 02/01 Tissue cultures also grew MSSA with the [...] discharged in stable condition on 10/22/2010 to [facility] with OPAT & Orthopedic follow-up planned in 2 weeks ti wv. Interim History obtained 11/17/2010: Ms. Galdamez presents [...] taking metronidazole as directed, which she fe angelica has given her nausea. She had 1 [...] R hip incision has healed very well. Linda were removed locally, and there has been [...] as well as in shoes and socks. [place]-3 Fatty Acids-Vitamin E (FISH OIL) 1,000 mg [...] She will travel to her PCP in [place] in 1 weeks time for another PICC [...] nd follow-up planning. Carolina Putnam PA-C [facility] Department of Infectious Disease Outpatient IV Antibiotic Therapy Clinic (OPAT) Pager ID: [phone] [facility]. Mail Code Q060 [place] [address] documented in th is encounter Plan of [...] + + + + | [facility] | [address] | [place] [address] | | | PATHOLOGY | [address] [...] + | [facility] ([facility]) | [facility] | | [facility] | REGIONAL | | [address] | LABORATORY | | [place] [address] | | + + + + + + + + | Performing | Address | City/State/Zipcode | Phone Number | | Organization | | | | + + + + + | [facility] | [address] | [place] [address] | | | LABORATORY | | | [...] + + + + | [facility] | [address] [facility] | [place] [address] | | | PATHOLOGY | [address] [...] | | | DEPARTMENT | | | [place] | | | OF | | | [...] | | | | <15 mL/min/1.73 sq | | | | | | m Kidney Failure | | | | | [...] DEPARTMENT OF | [address] | [place] [address] | | | PATHOLOGY | [address] [...] + + + + | 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
--- OUTSIDE RECORDS SUMMARY | ~2019-02-26 | XMS | Encounter Summary ---
Demographics + + + | Address | [address] | | | [place] [address] | + + + | Home Phone [...] Team Providers + +------+ + | Care Completion Manager Name | Role | Phone | [...] as of this encounter Progress Notes Interface, Pyrometer Temperature Regulator In - 04/28/2006 3:06 AM PDTCLINIC DATE: 09/24/2002 ORTHOPEDIC CLINIC SUBJECTIVE: A 42-year-old obese female follows for right hip endstage degenerative joint disease. She returns to clinic today stating that her hip is bothering her again. Her last injection was 6 months ago in February 2002. It lasted approximately 5 months. She [facility] She takes Celebrex, multivitamin, and uses [...] fluoroscopically-guided hip injections closer to home in [place], [place], and come here when she fails to respond to schedule her total hip replacement at that time. She seems to prefer to drive across the [place] for her care. Lloyd Garcia M.D. Director Appointment, Orthopedics and Rehabilitation / [id number] / [id number] / [id number] / [id number] cc: Ninfa Guillen M.D. [address] [place], [place] [id number] signed by Interface, Pyrometer Temperature Regulator In at 04/28/2006 3:0 6 AM PDTInterface, Pyrometer Temperature Regulator In - 04/28/2006 3:06 AM PDTCLINIC DATE: [...] all the way [facility] [place], [place]. Shruti Manjarrez MD AM / [id number] / [id number] / [id number] / [id number] cc: Ninfa Guillen M.D. [address] [place], [place] [id number] signed by Interface, Pyrometer Temperature Regulator In at 04/28/2006 3:0 6 AM PDTdocumented in this encounter Plan of Treatment Not on filedocumented as of this encounter Visit Diagnoses Not on filedocumented in this encounter"
--- OUTSIDE RECORDS SUMMARY | ~2019-02-26 | XMS | Encounter Summary ---
Demographics + + + | Address | [address] | | | [place] [address] | + + + | Home Phone [...] Author + + + | Author | [facility] | + + + | Organization | [facility] | + + + | Address [...] Team Providers + +------+ + | Care Teaching Manager Name | Role | Phone | [...] W | | | | ON | [facility] 4th Floor [address] | [address] | | | | | [address] | Road [place], [place] | | | | | Code: [address] | [address] | | | | | for Health and | | | | | | Healing,4th Floor | | | | | | [place], [place] | | | | | | [address] | | | | | | [phone] | | | +--------+ + + + [...]
--- OUTSIDE RECORDS SUMMARY | ~2019-02-26 | XMS | Encounter Summary ---
Demographics + + + | Address | [address] | | | [place] [address] | + + + | Home Phone [...] Team Providers + +------+ + | Care Cardiothoracic Icu Rn Name | Role | Phone | [...] Other | | 2008 | | [facility] [address] Evangelista PA-C | | | | | [facility] | | | | | | Mailcode: PV430 | | | | | | 's Terrence | | | | | | [place], [place] | | | | | | [address] | | | | | | [phone] | | | +--------+ + + + [...]
--- OUTSIDE RECORDS SUMMARY | ~2019-02-26 | XMS | Encounter Summary ---
Demographics + + + | Address | [address] | | | [place] [address] | + + + | Home Phone [...] Providers + +------+ + | Care Commercial Coordinator Name | Role | Phone | [...] | | | unspecified | | Rd [place], | | | | | whether | | [place] | | | | | generalized | | [address] | | | | | or | | Phone: | | | | | localized, | | [phone] | | | | | pelvic | | Fax: | | | | | region and | | [phone] | | | | | thigh Pain [...] [address] | [address] | Osteoarthritis of | | | | [facility] [address] | [facility] | hip; Infection and | | | | Mailcode: PV430 | [place], [place] | inflammatory | | | | [facility] | [address] | reaction due to | | | | [place], [place] | [phone] | internal joint | | | | [address] | | prosthesis ([facility]); | | | | [phone] | | EE-NO SHOW | +--------+---------+ + [...]
--- OUTSIDE RECORDS SUMMARY | ~2019-02-26 | XMS | Encounter Summary ---
Demographics + + + | Address | [address] | | | [place] [address] | + + + | Home Phone [...] Team Providers + +------+ + | Care Spaghetti Press Helper Name | Role | Phone | + +------+ + | Marta Jenkins SAP BUSINESS OBJECTS CONSULTANT | PCP | | + +------+ [...] | [address] Mailcode: | [address] [employer] [place], | | | | | [address] [place], [place] | [place] [address] | | | | | [address] | | | | | | [phone] | | | +--------+ + + + [...] + + + + | [facility] DEPARTMENT OF | [address] | [place] [address] | | | PATHOLOGY | [address] | | | + + + + + | [facility] DEPARTMENT | [address] | [place] [address] | | | PATHOLOGY | [address] [...] + + + + | [facility] DEPARTMENT OF | [address] | [place] [address] | | | PATHOLOGY | [address] | | | + + + + + | [facility] | [address] [place] [address] [address] | [place] [address] | | | PATHOLOGY | [address] [...] + + | [facility] | [address] [facility] | [place] [address] | | | PATHOLOGY | [address] | | | + + + + + | [facility] | [facility] | [place] [address] | | | PATHOLOGY | [address] [...] + | [facility] DEPARTMENT OF | | | | | RADIOLOGY | | | | + +---------+ + + documented in this encounter Visit Diagnoses Not on filedocumented in this encounter"
--- OUTSIDE RECORDS SUMMARY | ~2019-02-26 | XMS | Encounter Summary ---
Demographics + + + | Address | [address] | | | [place] [address] | + + + | Home Phone [...] Author + + + | Author | [facility] | + + + | Organization | [facility] | + + + [...] Team Providers + +------+ + | Care Cost Analyst Name | Role | Phone | + +------+ + PCP | Unavailable | + +------+ + Encounter Details +--------+ + + + + | Date | Type | Department | Care Team | Description | +--------+ + + + + | 01/16/ | Abstract | UNKNOWN DEPARTMENT | Unknown . | | | 2005 | | [address] [facility] | | | | | | [facility] | | | | | | [place], [place] | | | | | | [address] | | | +--------+ + + + [...]
--- OUTSIDE RECORDS SUMMARY | ~2019-02-26 | XMS | Encounter Summary ---
Demographics + + + | Address | [address] | | | [place] [address] | + + + | Home Phone [...] Team Providers + +------+ + | Care Mounter Saxophones Name | Role | Phone | + [...] as of this encounter Progress Notes Interface, Drill Presser In - 07/28/2006 5:01 AM PSTCLINIC DATE: [...] from earlier surgical intervention. Lloyd Garcia M.D. Applications Manager Orthopedics and Rehabilitation / [id number] / [id number] / [id number] / cc: Helio Noland M.D. [address] [place], [place] [id number] signed by Interface, Drill Presser In at 07/28/2006 5: 01 AM PSTInterface, Drill Presser In - 07/28/2006 5:01 AM PSTCLINIC DATE: [...] weeks' time. Malcom Her M.D. / SALE[place] [id number] / [id number] / [id number] / [id number] Tdocumented in this encounter Plan of Treatment Not on filedocumented as of this encounter Visit Diagnoses Not on filedocumented in this encounter"
--- OUTSIDE RECORDS SUMMARY | ~2019-02-26 | XMS | Encounter Summary ---
Demographics + + + | Address | [address] | | | [place] [address] | + + + | Home Phone [...] Team Providers + +------+ + | Care Record Center Coordinator Name | Role | Phone | [...] [facility] [address] | [address] [facility] | teaching, guidance, | | | | [facility] [address] | [facility] | and counseling | | | | Mailcode: PV430 | [place], [place] | (injection) | | | | [facility] | [address] | | | | | [place], [place] | [phone] | | | | | [address] | | | | | | [phone] | | | +--------+ + + + [...]
--- OUTSIDE RECORDS SUMMARY | ~2019-02-26 | XMS | Encounter Summary ---
Demographics + + + | Address | [address] | | | [place] [address] | + + + | Home Phone [...] + + + | Author | [facility] | + + + | Organization | [facility] | + + + | [...] Team Providers + +------+ + | Care Pool Manager Name | Role | Phone | + +------+ + | Marta Jenkins PARTS FABRICATOR | PCP | | + +------+ + Encounter Details +--------+ + + + + | Date | Type | Department | Care Team | Description | +--------+ + + + + | 11/18/ | Abstract | Digestive Health | Clinic, Surgery | | | 2019 | | [place] [facility] [address] | | | | | | [address] | | | | | | Mailcode: [place] | | | | | | for Health and | | | | | | Healing, Building [address] | | | | | | [facility] [place] | | | | | | [address] | | | | | | [phone] | | | +--------+ + + + [...]
--- OUTSIDE RECORDS SUMMARY | ~2019-02-26 | XMS | Encounter Summary ---
Demographics + + + | Address | [address] | | | [place] [address] | + + + | Home Phone [...] Team Providers + +------+ + | Care Mold Yard Crane Operator Name | Role | Phone | [...] [address] | [facility] | | | | | [facility] | [place] [address] | | | | | Mailcode: L457 | [phone] | | | | | Physicians [address] | | | | | | [place], [place] | | | | | | [address] | | | | | | [phone] | | | +--------+ + + + [...] + | HEMOGLOBIN | 11 (A) | 12.1999 - 15 | NON [facility] [...]
--- OUTSIDE RECORDS SUMMARY | ~2019-02-26 | XMS | Encounter Summary ---
Demographics + + + | Address | [address] | | | [place] [address] | + + + | Home Phone [...] Team Providers + +------+ + | Care Cat Scan Tech Name | Role | Phone | [...]
--- OUTSIDE RECORDS SUMMARY | ~2019-02-26 | XMS | Encounter Summary ---
Demographics + + + | Address | [address] | | | [place] [address] | + + + | Home Phone [...] Team Providers + +------+ + | Care Hardening Machine Operator Name | Role | Phone [...] Radiology | Diagnoses | Arias, | [facility] | | | | | Lumbar | Kalyan Barrientos MD | [address] | | | | | radiculopath | [address] | [address] | | | | | y | [address] | [facility] | | | | | Procedures | Roxann | Mailcode: | | | | | MRI SPINE | [place], [place] | L340 | | | | | LUMBAR [place] | [address] | Luigi | | | | | CONT | Phone: | Research | | | | | | [phone] | [place] | | | | | | Fax: | [place], [place] | | | | | | [phone] | [address] | | | | | | | Phone: | | | | | | | [phone] | | | | | | | Fax: | | | | | | | [phone] | +--------+--------+ + + + + Encounter Details +--------+ + + + + | Date | Type | Department | Care Team | Description | +--------+ + + + + | 08/03/ | Hospital | Diagnostic Imaging | | | | 2009 | Encounter | Services at [facility] | | | | | | [address] | | | | | | [facility] | | | | | | Mailcode: L340 | | | | | | [facility] | | | | | | [place], [place] | | | | | | [address] | | | | | | [phone] | | | +--------+ + + + [...] + + + +---------+ + + | [place]-3 Fatty | Take by mouth. | | [...] | | | | | | of [id number]/superior | | | | | | corner, [...]
--- OUTSIDE RECORDS SUMMARY | ~2019-02-26 | XMS | Encounter Summary ---
Demographics + + + | Address | [address] | | | [place] [address] | + + + | Home Phone [...] Team Providers + +------+ + | Care Flight Line Mechanic Name | Role | Phone | [...] as of this encounter Progress Notes Interface, System Support Analyst In - 08/28/2006 3:05 AM PSTCLINIC DATE: [...] clinical evaluation. Benson Cooper M.D. / SALEEM [id number] / [id number] / [id number] / cc: Lloyd Garcia M.D. documented in this encounter Plan of Treatment Not on filedocumented as of this encounter Visit Diagnoses Not on filedocumented in this encounter"
--- OUTSIDE RECORDS SUMMARY | ~2019-02-26 | XMS | Encounter Summary ---
Demographics + + + | Address | [address] | | | [place] [address] | + + + | Home Phone [...] Providers + +------+ + | Care Station Jailer Name | Role | Phone | + [...] as of this encounter Progress Notes Interface, Fueler In - 05/17/2006 3:10 AM PDTCLINIC DATE: [...] arthroplasty at that point. Lloyd Garcia M.D. Workforce Investment Act Career Manager, Orthopedics and Rehabilitation / [id number] / [id number] / [id number] / [id number] cc: Ninfa Guillen M.D. [address] [place] [id number] signed by Interface, Fueler In at 05/17/2006 3:1 0 AM PDTInterface, Fueler In - 05/17/2006 3:10 AM PDTCLINIC DATE: [...] MD Lloyd Causey M.D. SAMANTHA / SALE[place] [id number] / [id number] / [id number] / Tdocumented in this encounter Plan of Treatment Not on filedocumented as of this encounter Visit Diagnoses Not on filedocumented in this encounter"
--- OUTSIDE RECORDS SUMMARY | ~2019-02-26 | XMS | Encounter Summary ---
Demographics + + + | Address | [address] | | | [place] [address] | + + + | Home Phone [...] Providers + +------+ + | Care Supply Technician Name | Role | Phone | [...] Lira | | | | | | [facility] | | | | | | Mailcode: PV430 | | | | | | Physician'yokasta Ocampo | | | | | | [place], [place] | | | | | | [address] | | | | | | [phone] | | | +--------+ + + + [...]
--- OUTSIDE RECORDS SUMMARY | ~2019-02-26 | XMS | Encounter Summary ---
Demographics + + + | Address | [address] | | | [place] [address] | + + + | Home Phone [...] Providers + +------+ + | Care Watch Inspector Name | Role | Phone | [...] Encounters | | 2008 | | [facility] [address] | [address] | | | | | [facility] | [facility] | | | | | Mailcode: PV430 | [place], [place] | | | | | [facility] | [address] | | | | | [place], [place] | [phone] | | | | | | | | | | | [phone] | | | +--------+ + + + [...]
--- OUTSIDE RECORDS SUMMARY | ~2019-02-26 | XMS | Encounter Summary ---
Demographics + + + | Address | [address] | | | [place] [address] | + + + | Home Phone [...] Providers + +------+ + | Care Manager Scheduling Name | Role | Phone | + +------+ + PCP | Unavailable | + +------+ + Encounter Details +--------+ + + + + | Date | Type | Department | Care Team | Description | +--------+ + + + + | 11/15/ | Abstract | Orthopaedics at | Gino Baker MD | | | 2005 | | [facility] [address] | [address] | | | | | [facility] | [facility], | | | | | Mailcode: PV430 | [place] [address] | | | | | [facility] | | | | | | [place], [place] | | | | | | [address] | | | | | | [phone] | | | +--------+ + + + [...]
--- OUTSIDE RECORDS SUMMARY | ~2019-02-26 | XMS | Encounter Summary ---
Demographics + + + | Address | [address] | | | [place] [address] | + + + | Home Phone [...] Team Providers + +------+ + | Care Hardware Design Engineer Name | Role | Phone [...] injection and still | | | | [facility] [address] | | is in a lot of pain) | | | | Mailcode: PV430 | | | | | | [facility] | | | | | | [place], [place] | | | | | | [address] | | | | | | [phone] | | | +--------+ + + + [...]
--- OUTSIDE RECORDS SUMMARY | ~2019-02-26 | XMS | Encounter Summary ---
Demographics + + + | Address | [address] | | | [place] [address] | + + + | Home Phone [...] Team Providers + +------+ + | Care Compatibility Test Engineer Name | Role | Phone [...] [address] | [facility] | | | | | [facility] | [place] [address] | | | | | Mailcode: L457 | [phone] | | | | | Physicians [facility] | | | | | | [place], [place] | | | | | | [address] | | | | | | [phone] | | | +--------+ + + + [...] | SEDIMENTATI | 48 | mm/hr | [facility] | | | ON RATE | | [...] + + + + + | [facility] | [address] | [place] [address] | | | [facility] [place] | | | | + + + + + documented in this encounter Visit Diagnoses Not on filedocumented in this encounter"
--- OUTSIDE RECORDS SUMMARY | ~2019-02-26 | XMS | Encounter Summary ---
Demographics + + + | Address | [address] | | | [place] [address] | + + + | Home Phone [...] Providers + +------+ + | Care School Counselor Name | Role | Phone | [...] as of this encounter Progress Notes Interface, Qa Automation Architect In - 06/23/2006 1:07 AM PDTCLINIC DATE: [...] Ken Mejia M.D. Lloyd Garcia M.D. / [id number] / [id number] / [id number] / Tdocumented in this encounter Plan of Treatment Not on filedocumented as of this encounter Visit Diagnoses Not on filedocumented in this encounter"
--- OUTSIDE RECORDS SUMMARY | ~2019-02-26 | XMS | Encounter Summary ---
Demographics + + + | Address | [address] | | | [place] [address] | + + + | Home Phone [...] Providers + +------+ + | Care Assistant Librarian Name | Role | Phone | [...] as of this encounter Progress Notes Interface, Genetics Nurse In - 08/03/2006 5:18 AM PSTCLINIC DATE: [...] hip at that time. Lloyd Garcia M.D. Indirect Sales Exec of Orthopedics and Rehabilitation / [id number] / [id number] / [id number] / [id number] cc: Helio Noland M.D. P.OJuan [facility] [place] [facility] [address] [place], [place] [address]Whdrilnocrwzgt signed by Interface, Genetics Nurse In at 08/03/2006 5: 18 AM PSTdocumented in this encounter Plan of Treatment Not on filedocumented as of this encounter Visit Diagnoses Not on filedocumented in this encounter"
--- OUTSIDE RECORDS SUMMARY | ~2019-02-26 | XMS | Encounter Summary ---
Demographics + + + | Address | [address] | | | [place] [address] | + + + | Home Phone [...] Team Providers + +------+ + | Care Resident Surgeon Name | Role | Phone | [...] [facility] [address] | [address] [facility] | | | | | [facility] | [facility] | | | | | Mailcode: PV430 | [place], [place] | | | | | [facility] | [address] | | | | | [place], [place] | [phone] | | | | | [address] | | | | | | [phone] | | | +--------+ + + + [...]
--- OUTSIDE RECORDS SUMMARY | ~2019-02-26 | XMS | Encounter Summary ---
Demographics + + + | Address | [address] | | | [place] [address] | + + + | Home Phone [...] Providers + +------+ + | Care Diesel Engine Mechanic Apprentice Name | Role | Phone | [...] | | | | due to | [place], [place] | [place], | | | | | internal | [address] | [place] [address] | | | | | joint | Phone: | Phone: | | | | | prosthesis | [phone] | [phone] | | | | | ([facility]) | Fax: | Fax: | | | | | | [phone] | [phone] | +--------+--------+ + + + + Encounter [...] [address] | [address] [place], | reaction due to | | | | [facility] | [place] [address] | internal joint | | | | Mailcode: L457 | [phone] | prosthesis ([facility]) | | | | Physicians [facility] | | (Primary Dx) | | | | [place], [place] | | | | | | [address] | | | | | | [phone] | | | +--------+---------+ + + + [...] DISEASES CLINIC FOLLOW UP Primary Care Physician: [facility] [address] [place] [address] Ms. Galdamez presents to Infectious Diseases Clinic [...] 18, a nd was therefore admitted to [facility] out of concern for R hip [...] discharged in stable condition on 10/22/2010 to [facility] with OPAT & Orthopedic follow-up planned in 2 [place]. In OPAT follow-up on 11/09/2010 Ms. Galdamez [...] hip incis ion had healed very well. [place] had been removed, and there had been [...] W-FE,OTHER MIN (CENTRUM ORAL) Take by mouth. Cutler-3 Fatty Acids-Vitamin E (FISH OIL) 1,000 mg [...] a nd follow-up planning. Carolina Putnam PA-C [facility] Department of Infectious Disease Outpatient IV Antibiotic Therapy Clinic (OPAT) Pager ID: [phone] [facility]. 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
--- OUTSIDE RECORDS SUMMARY | ~2019-02-26 | XMS | Encounter Summary ---
Demographics + + + | Address | [address] | | | [place] [address] | + + + | Home Phone [...] Team Providers + +------+ + | Care Account Manager Employee Benefits Name | Role | Phone | + [...] Lira | | | | | | [facility] | | | | | | Mailcode: PV430 | | | | | | Physician'yokasta Ocampo | | | | | | [place], [place] | | | | | | [address] | | | | | | [phone] | | | +--------+ + + + [...] + + + + + | [facility] | [address] | [place] [address] | | | PATHOLOGY | [address] | | | + + + + + | [facility] | [address] | [place] [address] | | | PATHOLOGY | [address] [...] | [address] | [place] [address] | | | PATHOLOGY | [address] | | | + + + + + | [facility] | [address] | [place] [address] | | | PATHOLOGY | [address] | | | + + + + + documented in this encounter Visit Diagnoses Not on filedocumented in this encounter"
--- OUTSIDE RECORDS SUMMARY | ~2019-02-26 | XMS | Encounter Summary ---
Demographics + + + | Address | [address] | | | [place] [address] | + + + | Home Phone [...] Providers + +------+ + | Care Mold Changer Name | Role | Phone | [...] of this encounter Progress Notes Interface, Health Education Specialist In - 08/06/2006 1:09 AM PSTCLINIC DATE: [...] provided by Dr. Noland. Lloyd Garcia M.D. Physician Ophthalmologist, Orthopedics and Rehabilitation / [id number] / [id number] / [id number] / [id number] cc: Helio Noland M.D. P.O. [place], [place] [address]Okmvihzgajxtnh signed by Interface, Health Education Specialist In at 08/06/2006 1: 09 AM PSTdocumented in this encounter Plan of Treatment Not on filedocumented as of this encounter Visit Diagnoses Not on filedocumented in this encounter
--- OUTSIDE RECORDS SUMMARY | ~2019-02-26 | XMS | Encounter Summary ---
Demographics + + + | Address | [address] | | | [place] [address] | + + + | Home Phone [...] Team Providers + +------+ + | Care Plywood Layup Line Back Feeder Name | Role | Phone | [...] as of this encounter Progress Notes Interface, Sexual Abuse Counsellor In - 02/27/2006 3:05 AM PDTClinic Date: [...] M.D. Lloyd Garcia M.D. RT / HS [id number] / [id number] / [id number] / [id number] Watt, Sexual Abuse Counsellor In - 02/27/2006 3:05 AM PDTClinic Date: [...] is any deep infection. Lloyd Garcia M.D. Machine Featheredger And Reducer Orthopedics and Rehabilitation Jackelyn A [id number] cc: Ninfa Barrientos MD [address] [place] [id number] signed by Interface, Sexual Abuse Counsellor In at 6 3:05 AM PDTdocumented in this encounter Plan of Treatment Not on filedocumented as of this encounter Visit Diagnoses Not on filedocumented in this encounter"
--- OUTSIDE RECORDS SUMMARY | ~2019-02-26 | XMS | Encounter Summary ---
Demographics + + + | Address | [address] | | | [place] [address] | + + + | Home Phone [...] Author + + + | Author | [facility] | + + + | Organization | [facility] | + + + | [...] Team Providers + +------+ + | Care Gynecologist Name | Role | Phone | + [...] + + + + | 10/24/ | Curing Room Worker | Infectious | Carolina Putnam | | | 2010 | | Diseases at [facility] 3rd | MEGAN Red[address] | | | | | Floor [address] | [facility], | | | | | [facility] | [place] [address] | | | | | Mailcode: L457 | [phone] | | | | | Ky Ocampo | | | | | | [place], [place] | | | | | | [address] | | | | | | [phone] | | | +--------+ + + + [...]
--- OUTSIDE RECORDS SUMMARY | ~2019-02-26 | XMS | Encounter Summary ---
Demographics + + + | Address | [address] | | | [place] [address] | + + + | Home Phone [...] Providers + +------+ + | Care Glass Technician/Installer Name | Role | Phone | + [...] | | | | | or | [address] | Pavilion | | | | | localized, | | [place], [place] | | | | | pelvic | | [address] | | | | | region and | | Phone: | | | | | thigh | | [phone] | | | | | Intervertebr | | Fax: | | | | | al lumbar | | [phone] | | | | | disc | [...] Hip; Hip Pain | | | | [facility] | | | | | | Mailcode: PV430 | | | | | | Physician'yokasta Ocampo | | | | | | [place], [place] | | | | | | [address] | | | | | | [phone] | | | +--------+---------+ + + + [...] tenderness. Severe gluteus medius limp. Most recent [facility] Laboratory Studies: Normal C-reactive protein at 0.5 (02/10/04), normal [facility] te cell count at 9.4 & [...] this done around the time of the [place] Round-up so she can enjoy shopp ing. [...] hip arthroplasty if needed. Lloyd Garcia M.D. 3D Artist, Orthopedics and Rehabilitation documented in this encount [...] + + | Performing | Address | City/State/[facility] | Phone Number | | Organization | | | | + +---------+ + + | [facility] DEPARTMENT OF | | [...] | | + +---------+ + + | [facility] DEPARTMENT OF | | [...]
--- OUTSIDE RECORDS SUMMARY | ~2019-02-26 | XMS | Encounter Summary ---
Demographics + + + | Address | [address] | | | [place] [address] | + + + | Home Phone [...] Author + + + | Author | [facility] | + + + | Organization | [facility] | + + + | Address [...] Providers + +------+ + | Care Brand Recorder Name | Role | Phone | + +------+ + | No Pcp Per Patient | PCP | Unavailable | + +------+ + Encounter Details +--------+ + + + + | Date | Type | Department | Care Team | Description | +--------+ + + + + | 10/13/ | Duplication Specialist | Orthopaedics at | Tesfaye Saenz | Osteoarthritis of | | 2008 | | [facility] [address] Evangelista PA-C | Hip (Primary Dx) | | | | [facility] | | | | | | Mailcode: PV430 | | | | | | Pat Ocampo | | | | | | [place], [place] | | | | | | [address] | | | | | | [phone] | | | +--------+ + + + [...] | | + +---------+ + + | [facility] DEPARTMENT OF | | | | [...] | | + +---------+ + + | [facility] DEPARTMENT OF | | | | | RADIOLOGY | | | | + +---------+ + + documented in this encounter Visit Diagnoses + + | Diagnosis | + + | Osteoarthritis of hip - Primary Osteoarthrosis, unspecified whether generalized or | | localized, pelvic region and thigh | + + documented in this encounter"
--- OUTSIDE RECORDS SUMMARY | ~2019-02-26 | XMS | Encounter Summary ---
Demographics + + + | Address | [address] | | | [place] [address] | + + + | Home Phone [...] Team Providers + +------+ + | Care Negotiator Name | Role | Phone | + [...] as of this encounter Progress Notes Interface, Pigment Grinder In - 04/28/2005 6:17 PM PDTClinic Date: [...] presence of her friend and my physician ophthalmology assistant and resident here in the Orthopedic [...] as soon as possible. Lloyd Garcia M.D. Vocational Nurse Lvn of Orthopedics and Rehabilitation / [id number] / [id number] / [id number] / [id number] Tdocumented in this encounter Plan of Treatment Not on filedocumented as of this encounter Visit Diagnoses Not on filedocumented in this encounter
--- OUTSIDE RECORDS SUMMARY | ~2019-02-26 | XMS | Encounter Summary ---
Demographics + + + | Address | [address] | | | [place] [address] | + + + | Home Phone [...] Team Providers + +------+ + | Care Winter Sports Manager Name | Role | Phone | + +------+ + | Marta Jenkins PRECISION THREAD GRINDER OPERATOR | PCP | | + +------+ [...] | Roxann Cadet Mailcode: | Roxann Ayala [place], | | | | | [address] [place], [place] | [place] [address] | | | | | [address] | | | | | | [phone] | | | +--------+ + + + [...]
--- OUTSIDE RECORDS SUMMARY | ~2019-02-26 | XMS | Encounter Summary ---
Demographics + + + | Address | [address] | | | [place] [address] | + + + | Home Phone [...] Providers + +------+ + | Care Pipe Jeeper Name | Role | Phone | + [...] [address] | | | | | [facility] | [facility] | | | | | Mailcode: PV430 | [facility] [place] | | | | | [facility] | [address] | | | | | [place], [place] | [phone] | | | | | [address] | | | | | | [phone] | | | +--------+ + + + [...]
--- OUTSIDE RECORDS SUMMARY | ~2019-02-26 | XMS | Encounter Summary ---
Demographics + + + | Address | [address] | | | [place] [address] | + + + | Home Phone [...] Providers + +------+ + | Care Machine Try Out Setter Name | Role | Phone | [...] | | | | | Roxann [place] | | | | | | [place] [address] | | | | | | [phone] | | +--------+ + + + + [...] Regis | | | | | | [facility] | | | | | | [facility]. | | | | + + + + + + + + | Specimen | + + | | + + + + + + + | Performing | Address | City/State/Zipcode | Phone Number | | Organization | | | | + + + + + | [facility] | [address] | [place] [address] | | | LABORATORY | | | | + + + + + documented in this encounter Visit Diagnoses Not on filedocumented in this encounter"
--- OUTSIDE RECORDS SUMMARY | ~2019-02-26 | XMS | Encounter Summary ---
Demographics + + + | Address | [address] | | | [place] [address] | + + + | Home Phone [...] Team Providers + +------+ + | Care Polishing Wheel Repairer Name | Role | Phone | [...] [address] | | | | | | [place] | | | | | | [place], [place] | | | | | | [address] | | | +--------+ + + + [...] | | Patient: SHELBY GALDAMEZ Med Rec: [id number] Sex F Bdate: 1960 | | Date/Time Data | | Entered Into [facility] | | Anesth PostOp | | Surgery Date [id number] 10/11/03 10:54 | | [id number] 10/06/03 10:47 | | [id number] 10/04/03 10:47 | | [id number] 10/01/03 11:25 | | [id number] 09/28/03 10:01 | | [id number] 09/27/03 11:35 | | [id number] 09/14/03 11:13 | | [id number] 08/17/03 10:51 | | Anesthesiologist SEBASTIAN MARIO [...]
--- OUTSIDE RECORDS SUMMARY | ~2019-02-26 | XMS | Encounter Summary ---
Demographics + + + | Address | [address] | | | [place] [address] | + + + | Home Phone [...] Team Providers + +------+ + | Care Brokerage Office Manager Name | Role | Phone [...] Floor [address] | [facility] | | | | | [facility] | [place] [address] | | | | | Mailcode: L457 | [phone] | | | | | Physicians [facility] | | | | | | [place], [place] | | | | | | [address] | | | | | | [phone] | | | +--------+ + + + [...]
--- OUTSIDE RECORDS SUMMARY | ~2019-02-26 | XMS | Encounter Summary ---
Demographics + + + | Address | [address] | | | [place] [address] | + + + | Home Phone [...] Team Providers + +------+ + | Care Egg Caser Name | Role | Phone | + +------+ + PCP | Unavailable | + +------+ + Encounter Details +--------+ + + + + | Date | Type | Department | Care Team | Description | +--------+ + + + + | 12/23/ | Intravenous Therapy Nurse | Orthopaedics at | Gino Baker MD | Osteoarthritis of | | 2006 | | [facility] [address] | [address] | Hip (Primary Dx) | | | | [facility] | Roxann Ayala [place], | | | | | Mailcode: PV430 | [place] [address] | | | | | 'yokasta Ocampo | | | | | | [place], [place] | | | | | | [address] | | | | | | [phone] | | | +--------+ + + + [...] HERRERA, | | | | | | M.DJuan JoseARTHROGRAM AND | | | | | [...]
--- OUTSIDE RECORDS SUMMARY | ~2019-02-26 | XMS | Encounter Summary ---
Demographics + + + | Address | [address] | | | [place] [address] | + + + | Home Phone [...] Providers + +------+ + | Care Hat Brim And Crown Laminating Operator Name | Role | Phone | [...] as of this encounter Progress Notes Interface, Palliative Senior Np In - 08/03/2006 5:18 AM PSTCLINIC DATE: [...] hip at that time. Lloyd Garcia M.D. Photo Technologist of Orthopedics and Rehabilitation / [id number] / [id number] / [id number] / [id number] cc: Helio Noland M.D. P.OJuan Jose [place] [facility] [address] [place], [place] [address]Byjyvwotciisux signed by Interface, Palliative Senior Np In at 08/03/2006 5: 18 AM PSTdocumented in this encounter Plan of Treatment Not on filedocumented as of this encounter Visit Diagnoses Not on filedocumented in this encounter"
--- OUTSIDE RECORDS SUMMARY | ~2019-02-26 | XMS | Encounter Summary ---
Demographics + + + | Address | [address] | | | [place] [address] | + + + | Home Phone [...] Providers + +------+ + | Care Quality Systems Manager Name | Role | Phone [...] Evangelista PA-C | | | | | [facility] | | | | | | Mailcode: PV430 | | | | | | 's Terrence | | | | | | [place], [place] | | | | | | [address] | | | | | | [phone] | | | +--------+ + + + [...]
--- OUTSIDE RECORDS SUMMARY | ~2019-02-26 | XMS | Encounter Summary ---
Demographics + + + | Address | [address] | | | [place] [address] | + + + | Home Phone [...] Providers + +------+ + | Care Traffic Worker Name | Role | Phone | [...] as of this encounter Progress Notes Interface, Materials Mgmt Tech In - 06/03/2006 3:06 AM PDTCLINIC DATE: [...] her new primary care physician in [place], and she is requesting a repeat hip [...] this would be inadvisable. Lloyd Garcia M.D. Molecular Spectroscopist, Orthopedics and Rehabilitation / HS [id number] / [id number] / [id number] / [id number] cc: Ninfa Guillen M.D. [address] [facility], [place] [address]Axtmewdwhiydhe signed by Interface, Materials Mgmt Tech In at 06/03/2006 3:06 AM PDTInterface, Materials Mgmt Tech In - 06/03/2006 3:06 AM PDTCLINIC DATE: [...] go ahead and send her back to [facility] Radiology Musculoskeletal specialist for a right intraarticular hip injection as this is what she wants. We will currently hold off on hip replacement due to her young age, and she can follow up back in the clinic in 6months' time. Tr Mcghee M.D. Lloyd Garcia M.D. / [id number] / [id number] / [id number] / Tdocumented in this encounter Plan of Treatment Not on filedocumented as of this encounter Visit Diagnoses Not on filedocumented in this encounter"
--- OUTSIDE RECORDS SUMMARY | ~2019-02-26 | XMS | Encounter Summary ---
Demographics + + + | Address | [address] | | | [place] [address] | + + + | Home Phone [...] Providers + +------+ + | Care Wood Caulker Name | Role | Phone | + [...] | Transcriptions | + + | Interface, Sausage Inspector In - 02/27/2006 3:05 AM PDT Date: | | 09/27/2003Attending Surgeon: Lloyd Garcia M.D.Morning Show Host(s): | | Benson Boone M.D.Preoperative Diagnosis:Right hip [...] Boone M.D.Lloyd Garcia M.D.RT / | | [id number] / [id number] / [id number] / [id number]: 09/27/2003T: 09/28/2003 | |( ) which was [...] | | | |RT / HS | |[id number] / [id number] / [id number] / [id number] | | | | | + + OPERATION RECORD (09/25/2003) + + | Transcriptions | + + | Interface, Sausage Inspector In - 02/27/2006 3:05 AM PDT Date: | | 09/25/2003Attending Surgeon: Lloyd Garcia M.D.Morning Show Host(s): | | MD Fox Gold, | | [...] [facility] | | [...] thenbrought back to Operating Room #[facility] at [facility] | | [place].General endotracheal anesthesia was administered. Antibiotics werewithheld | [...] | procedure well without apparent complications.Lloyd Garcia M.D.Brake Repair Supervisor, | | Orthopedics and Rehabilitation / [id number] / [id number] / [id number] / [id number]: 09/25/2003T: | | 09/26/2003 | |plate and [...] |brought back to Operating Room #7 at [facility]. | |General endotracheal anesthesia was administered. [...] | | | |Lloyd Garcia M.D. | |Brake Repair Supervisor, Orthopedics and Rehabilitation | | | | / | |[id number] / [id number] / [id number] / [id number] | | | | | + + documented in this encounter Visit Diagnoses Not on filedocumented in this encounter"
--- OUTSIDE RECORDS SUMMARY | ~2019-02-26 | XMS | Encounter Summary ---
Demographics + + + | Address | [address] | | | [place] [address] | + + + | Home Phone [...] Team Providers + +------+ + | Care Nut Chopper Name | Role | Phone | + [...] requested | | 2009 | | [facility] [address] | [address] [facility] | | | | | [facility] | [facility] | | | | | Mailcode: PV430 | [place], [place] | | | | | [facility] | [address] | | | | | [place], [place] | [phone] | | | | | [address] | | | | | | [phone] | | | +--------+ + + + [...]
--- OUTSIDE RECORDS SUMMARY | ~2019-02-26 | XMS | Encounter Summary ---
Demographics + + + | Address | [address] | | | [place] [address] | + + + | Home Phone | | + + + | Preferred Language | Unknown | + + + | Marital Status | Single | + + + | Tenriism Affiliation | Unknown | + + + | Race | Unknown | + + + | Ethnic Group | Unknown | + + + Author + + + | Author | [employer] | + + + | Organization | [facility] [employer] | + + + | Address [...] Required | Medicine / | Radiculopath | HELP DESK INTERN [address] | [address] | | | | Dolorology | y of lumbar | [address] | DR [address] | | | | | region | [address] | [place], [place] | | | | | Osteoarthrit | [place], [place] | [address] Phone: | | | | | is of lumbar | [address] | [phone] | | | | | spine, | Phone: | Fax: | | | | | unspecified | [phone] | [phone] | | | | | spinal | Fax: | | | | | | osteoarthrit | [phone] | | | | | | is [...] + + | 12/04/ | Office | [facility] | Xiang Sepulveda, | Radiculopathy of | | 2019 | Visit | [facility] | DO [address] | lumbar region; Facet | | | | [address] | [place], [place] | arthropathy, | | | | [place] | [address] | lumbar; | | | | [address] | | Osteoarthritis of | | | | [phone] | | lumbar spine, | | | [...] to physical therapy, mass age therapy, acupuncture, professional healthcare representative, along with recommended psychological counseling , either [...] plan, Will return to office in 8weeks, [facility] was consulted and appears appropriate, Urine Toxicology [...] dysfunction are noted in men and women. [facility] men will suffer erectile dysfunction with [...] | | | | | [place] | | | | | | [id number] | | | | | | | [...]
--- OUTSIDE RECORDS SUMMARY | ~2019-02-26 | XMS | Encounter Summary ---
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 She is able to ambulate [...] adduction which is not painful. X-rays show xqmgcqfi-lq-yvmqxa right hip DJD with joint space narrowing asymmetrically and large marginal osteocytes, most notably superiorly, posteriorly, as well as inferiorly and less so anteriorly. Right knee x-rays show wbqp-wh-sigjcvsm degenerative changes. No radiopaque loose bodies. AP, lateral, and oblique views of the lumbosacral spine show ejwv-dd-byrlpvrx facet arthrosis at L3-L4, L4-L5, and L5-S1, right greater than left. Disk spaces are well maintained. There is no spondylolisthesis or spondylolysis. ASSESSMENT: Rdyydgbt-ej-okjqsc hypotrophic osteoarthritis of the right hip; rjzm-br-euztbysy degenerative changes of the right knee; and mbvw-oe-xhbukpnu, right greater than left, lumbar and lumbosacral [...] the right hip. Lloyd Garcia M.D. / [id number] / [id number] / [id number] / [id number] C: 06/12/2000 otilia cc: JILLIAN TODD M.D. PJuan JoseOJuan Jose [place], [place] [address]Szkirjrdnjzuzu signed by Interface, Information Strategist In at 08/10/2006 3: 02 AM PSTdocumented in this encounter Plan of Treatment Not on filedocumented as of this encounter Visit Diagnoses Not on filedocumented in this encounter"
--- OUTSIDE RECORDS SUMMARY | ~2019-02-26 | XMS | Encounter Summary ---
Demographics + + + | Address | [address] | | | [place] [address] | + + + | Home Phone [...] Team Providers + +------+ + | Care Sea Air Land Officer Name | Role | Phone | [...] [address] | [facility] | | | | | [facility] | [place] [address] | | | | | Mailcode: L457 | [phone] | | | | | Physicians [place] | | | | | | [place], [place] | | | | | | [address] | | | | | | [phone] | | | +--------+ + + + [...] CELL | 8.6 | K/cu mm | [facility] | | | COUNT | | | MEDICAL | | | | | | [facility] - | | | | | | [place] | | + + + + + + | RED CELL | 3.88 | M/cu mm | [facility] | | | COUNT | | | MEDICAL | | | | | | [facility] - | | | | | | [place] | | + + + + + + | HEMOGLOBIN | 11.5 (A) | 12.1999 - 15 | [facility] | | | | | g/dL | MEDICAL | | | | | | [facility] - | | | | | | [place] | | + + + + + + | HEMATOCRIT | 33.7 | % | [facility] | | | | | [facility] | | | | | | [facility] - | | | | | | [place] | | + + + + + + | MCV | 87 | fL | [facility] | | | | | MEDICAL | | | | | | [facility] - | | | | | | [place] | | + + + + + + | MCH | 29.7 | pg | [facility] | | | | | MEDICAL | | | | | | [facility] - | | | | | | [place] | | + + + + + + | MCHC | 34.1 | g/dL | [facility] | | | | MED[facility] | | | | | | [facility] - | | | | | | [place] | | + + + + + + | PLATELET | 369 | K/cu mm | [facility] | | | COUNT | | | MEDICAL | | | | | | CENTER - | | | | | | [place] | | + + + + + + | NEUTROPHIL | 66.6 | % | [facility] | | | % | | | MED[facility] | | | | | | [facility] - | | | | | | [place] | | + + + + + + | LYMPHOCYTE | 23.2 | % | [facility] | | | % | | | MEDICAL | | | | | | [facility] - | | | | | | [place] | | + + + + + + | MONOCYTE % | 6.6 | % | [facility] | | | | | MED[facility] | | | | | | [facility] - | | | | | | [place] | | + + + + + + | EOS % | 3.1 | % | [facility] | | | | | MED[facility] | | | | | | [facility] - | | | | | | [place] | | + + + + + + | BASO % | 0.5 | % | [facility] | | | | | MED[facility] | | | | | | CENTER - | | | | | | [place] | | + + + + + + | RDW | 16.7 | % | [facility] | | | [...] NEUTROPHIL | 5.7 | K/cu mm | [facility] | | | # | | | MEDICAL | | | | | | [facility] - | | | | | | [place] | | + + + + + + | LYMPHOCYTE | 2.0 | K/cu mm | [facility] | | | # | | | MEDICAL | | | | | | [facility] - | | | | | | [place] | | + + + + + + | MONOCYTE # | 0.6 | K/cu mm | [facility] | | | | | [facility] | | | | | | [facility] - | | | | | | [place] | | + + + + + + | EOS # | 0.3 | K/cu mm | [facility] | | | | | MEDICAL | | | | | | [facility] - | | | | | | [place] | | + + + + + + | BASO # | | | [facility] | | | | | MEDICAL | | | | | | [facility] - | | | | | | [place] | | + + + + + + | SEDIMENTATI | 78 | mm/hr | [facility] | | | [...] + + + | [facility] | [address] | [place] [address] | | | [facility] | | | | + + + + + COMPLETE METABOLIC SET (NA,K,CL,CO2,BUN,CREAT,GLUC,CA,AST,ALT,BILI TOTAL,ALK PHOS,ALB,PROT TOTAL) (11/16/2010 9:41 AM PST) + +---------+ + + + | Component | Value | Ref Range | Performed | Pathologist | | | | | At | Signature | + +---------+ + + + | GLUCOSE, | 112 (A) | 65 - 110 mg/dL | [facility] | | | PLASMA | | | MEDICAL | | | (LAB) | | | CENTER - | | | | | | [place] | | + +---------+ + + + | BUN, PLASMA | 6 | mg/dL | [facility] | | | (LAB) | | | MEDICAL | | | | | | CENTER - | | | | | | [place] | | + +---------+ + + + | CREATININE | 0.4 | mg/dL | [facility] | | | PLASMA | | | MEDICAL | | | (LAB) | | | CENTER - | | | | | | [place] | | + +---------+ + + + | TOTAL | 7.1 | g/dL | [facility] | | | PROTEIN, | | | MEDICAL | | | PLASMA | | | CENTER - | | | (LAB) | | | [place] | | + +---------+ + + + | ALBUMIN, | 3.3 | g/dL | [facility] | | | PLASMA | | | MEDICAL | | | (LAB) | | | CENTER - | | | | | | [place] | | + +---------+ + + + | CALCIUM, | 8.6 | mg/dL | [facility] | | | PLASMA | | | MEDICAL | | | (LAB) | | | CENTER - | | | | | | [place] | | + +---------+ + + + | BILIRUBIN | 0.9 | Transcutaneous | [facility] | | | TOTAL | | Bilirubinometer | MEDICAL | | | | | | CENTER - | | | | | | [place] | | + +---------+ + + + | ALK PHOS | 60 | U/L | [facility] | | | | | | MEDICAL | | | | | | CENTER - | | | | | | [place] | | + +---------+ + + + | AST(SGOT) | 15 | U/L | [facility] | | | | | | MEDICAL | | | | | | CENTER - | | | | | | [place] | | + +---------+ + + + | SODIUM, | 139 | mmol/L | [facility] | | | PLASMA | | | MEDICAL | | | (LAB) | | | CENTER - | | | | | | [place] | | + +---------+ + + + | POTASSIUM, | 4.1 | mmol/L | [facility] | | | [...] TOTAL CO2, | 26 | mmol/L | [facility] | | | PLASMA | | | MEDICAL | | | (LAB) | | | CENTER - | | | | | | [place] | | + +---------+ + + + | ALT (SGPT) | 11 | U/L | [facility] | | | | | | MEDICAL | | | | | | CENTER - | | | | | | [place] | | + +---------+ + + + | ANION GAP | 10 | | [facility] | | | | | | MEDICAL | | | | | | CENTER - | | | | | | [place] | | + +---------+ + + + | OSMOLALITY, | 286 | | [facility] | | | CALCULATED | | | [...] + + + | [facility] | [address] [facility] | [place] [address] | | | [facility] | | | | + + + + + documented in this encounter Visit Diagnoses Not on filedocumented in this encounter"
--- OUTSIDE RECORDS SUMMARY | ~2019-02-26 | XMS | Encounter Summary ---
Demographics + + + | Address | [address] | | | [place] [address] | + + + | Home Phone [...] + + + | Author | [facility] | + + + | Organization | [facility] | + + + | Address | Unknown | + + + | Phone | Unavailable | + + + Support + + + + + | Name | Relationship | Address | Phone | + + + + + | Casandra Smith | ROBERTO | [place] | | + + + + + Care Team Providers + +------+ + | Care Sr. Manager Corporate Communications Name | Role | Phone | + [...] as of this encounter Progress Notes Interface, Clothing And Textiles Teacher In - 05/17/2006 3:10 AM PDTCLINIC DATE: [...] arthroplasty at that point. Lloyd Garcia M.D. Accounts Adjustable Clerk, Orthopedics and Rehabilitation / [id number] / [id number] / [id number] / [id number] cc: Ninfa Guillen M.D. [address] [place] [address] [id number] signed by Interface, Clothing And Textiles Teacher In at 05/17/2006 3:1 0 AM PDTInterface, Clothing And Textiles Teacher In - 05/17/2006 3:10 AM PDTCLINIC DATE: [...] MD Lloyd Causey M.D. SAMANTHA / SALEEM [id number] / [id number] / [id number] / Tdocumented in this encounter Plan of Treatment Not on filedocumented as of this encounter Visit Diagnoses Not on filedocumented in this encounter"
--- OUTSIDE RECORDS SUMMARY | ~2019-02-26 | XMS | Encounter Summary ---
Demographics + + + | Address | [address] | | | [place] [address] | + + + | Home Phone [...] Team Providers + +------+ + | Care Sanitary Aide Name | Role | Phone | + +------+ + PCP | Unavailable | + +------+ + Encounter Details +--------+ + + + + | Date | Type | Department | Care Team | Description | +--------+ + + + + | 09/14/ | Results | | Other, Faculty | | | 2002 | Only | | [phone] | | +--------+ + + + + [...] + | Ordered by JEFERSON CRONIN, . [id number] Patient unavailable, | | | specimen not obtained | | + + + + + + + + | Performing | Address | City/State/Zipcode | Phone Number | | Organization | | | | + + + + + | [facility] | [address] | [place] [address] | | | LABORATORY | | | [...] + | Ordered by JEFERSON CRONIN JR. [id number] Patient unavailable, | [facility] | | specimen not obtained | DEPARTMENT OF | | | PATHOLOGY | + + + + + + + + | Performing | Address | City/State/Zipcode | Phone Number | | Organization | | | | + + + + + | [facility] | [address] [facility] [facility] | [place] [address] | | | PATHOLOGY | [address] | | | + + + + + | [facility] | [address] [facility] | [place] [address] | | | PATHOLOGY | [address] [...] + | Ordered by JEFERSON CRONIN JR. [id number] Staff or dialysis draw | [facility] | | required. | DEPARTMENT OF | | | PATHOLOGY | + + + + + + + + | Performing | Address | City/State/Zipcode | Phone Number | | Organization | | | | + + + + + | [facility] DEPARTMENT OF | [address] | [place] [address] | | | PATHOLOGY | [address] | | | + + + + + | [facility] DEPARTMENT OF | [address] | [place] [address] | | | PATHOLOGY | [address] [...] | [facility] DEPARTMENT OF | [address] | [place] [address] | | | PATHOLOGY | [address] | | | + + + + + | [facility] DEPARTMENT OF | [address] | [place] [address] | | | PATHOLOGY | [address] [...] | + + + + + | [facility] | [address] [facility] | [place] [address] | | | PATHOLOGY | [address] | | | + + + + + | [facility] | [address] [facility] | [place] [address] | | | PATHOLOGY | [address] | | | + + + + + documented in this encounter Visit Diagnoses Not on filedocumented in this encounter"
--- OUTSIDE RECORDS SUMMARY | ~2019-02-26 | XMS | Encounter Summary ---
Demographics + + + | Address | [address] | | | [place] [address] | + + + | Home Phone [...] Team Providers + +------+ + | Care Access Rep Name | Role | Phone | + +------+ + PCP | Unavailable | + +------+ + Encounter Details +--------+ + + + + | Date | Type | Department | Care Team | Description | +--------+ + + + + | 06/24/ | Results | | Other, Faculty | | | 2000 | Only | | [phone] | | +--------+ + + + + [...]
--- OUTSIDE RECORDS SUMMARY | ~2019-02-26 | XMS | Encounter Summary ---
Demographics + + + | Address | [address] | | | [place] [address] | + + + | Home Phone [...] Team Providers + +------+ + | Care Pi/Senior Research Associate Name | Role | Phone | [...] | | | | [address] | [place], [place] | | | | | [address] | [address] | | | | | [place], | [phone] | | | | | [place] [address] | | | | | | [phone] | | | +--------+ + + + [...]
--- OUTSIDE RECORDS SUMMARY | ~2019-02-26 | XMS | Encounter Summary ---
Demographics + + + | Address | [address] | | | [place] [address] | + + + | Home Phone [...] Providers + +------+ + | Care Test Borer Helper Name | Role | Phone | + +------+ + | aMrta Jenkins BLANKET WINDER HELPER | PCP | | + +------+ + Encounter Details +--------+ + + + + | Date | Type | Department | Care Team | Description | +--------+ + + + + | 10/27/ | Telephone | Orthopaedics at | Kalyan Arias MD | | | 2008 | | [facility] [address] | [address] | | | | | [facility] | [facility] | | | | | Mailcode: PV430 | [place], [place] | | | | | [facility] | [address] | | | | | [place], [place] | [phone] | | | | | [address] | | | | | | [phone] | | | +--------+ + + + [...]
--- OUTSIDE RECORDS SUMMARY | ~2019-02-26 | XMS | Encounter Summary ---
Demographics + + + | Address | [address] | | | [place] [address] | + + + | Home Phone [...] Team Providers + +------+ + | Care Irradiated Fuel Handler Name | Role | Phone | [...] [facility] [address] | [place] [address] | | | | | [facility] | [phone] | | | | | Mailcode: PV01 | | | | | | [facility] | | | | | | [place], [place] | | | | | | [address] | | | | | | [phone] | | | +--------+ + + + [...]
--- OUTSIDE RECORDS SUMMARY | ~2019-02-26 | XMS | Encounter Summary ---
Demographics + + + | Address | [address] | | | [place] [address] | + + + | Home Phone [...] Team Providers + +------+ + | Care Flash Drier Operator Name | Role | Phone [...] | Floor [address] | [facility] | | | | | [facility] | [place] [address] | | | | | Mailcode: L457 | [phone] | | | | | Physicians [address] | | | | | | [place], [place] | | | | | | [address] | | | | | | [phone] | | | +--------+ + + + [...]
--- OUTSIDE RECORDS SUMMARY | ~2019-02-26 | XMS | Encounter Summary ---
Demographics + + + | Address | [address] | | | [place] [address] | + + + | Home Phone [...] + + + | Author | [facility] | + + + | Organization | [facility] | + + + | [...] Team Providers + +------+ + | Care Math Specialist Name | Role | Phone | [...] | | | 2010 | | [facility] [address] | [address] | | | | | [facility] | [facility] | | | | | Mailcode: PV430 | [place], [place] | | | | | [facility] | [address] | | | | | [place], [place] | [phone] | | | | | [address] | | | | | | [phone] | | | +--------+ + + + [...]
--- OUTSIDE RECORDS SUMMARY | ~2019-02-26 | XMS | Encounter Summary ---
Demographics + + + | Address | [address] | | | [place] [address] | + + + | Home Phone [...] Team Providers + +------+ + | Care Mail Sorter Name | Role | Phone | [...] as of this encounter Progress Notes Interface, Carbon Paper Interleafer In - 07/10/2006 1:00 AM PDTCLINIC DATE: [...] right total hip replacement. Lloyd Garcia M.D. Print Shop Assistant Orthopedic and Rehabilitation / [id number] / [id number] / [id number] / cc: JILLIAN TODD MD [address] [id number] signed by Interface, Carbon Paper Interleafer In at 07/10/2006 1:0 0 AM PDTdocumented in this encounter Plan of Treatment Not on filedocumented as of this encounter Visit Diagnoses Not on filedocumented in this encounter"
--- OUTSIDE RECORDS SUMMARY | ~2019-02-26 | XMS | Encounter Summary ---
Demographics + + + | Address | [address] | | | [place] [address] | + + + | Home Phone [...] Team Providers + +------+ + | Care Yarn Packer Name | Role | Phone | [...] [address] | | | | | [facility] | [facility] | | | | | Mailcode: PV430 | [place], [place] | | | | | Physician's [facility] | [address] | | | | | [place], [place] | [phone] | | | | | | | | | | | [phone] | | | +--------+ + + + [...]
--- OUTSIDE RECORDS SUMMARY | ~2019-02-26 | XMS | Encounter Summary ---
Demographics + + + | Address | [address] | | | [place] [address] | + + + | Home Phone [...] Team Providers + +------+ + | Care Tobacco Sampler Name | Role | Phone | + [...] | | Osteoarthros | | [address] | | | | | is, | | [address] | | | | | unspecified | | Rd [place], | | | | | whether | | [place] | | | | | generalized | | [address] | | | | | or | | Phone: | | | | | localized, | | [phone] | | | | | pelvic | | Fax: | | | | | region and | | [phone] | | | | | thigh | [...] (Primary Dx); Hip | | | | [facility] [address] | [address] | Pain | | | | Mailcode: PV430 | [place], [place] | | | | | [facility] | [address] | | | | | [place], [place] | [phone] | | | | | [address] | | | | | | [phone] | | | +--------+---------+ + + + [...]
--- OUTSIDE RECORDS SUMMARY | ~2019-02-26 | XMS | Encounter Summary ---
Demographics + + + | Address | [address] | | | [place] [address] | + + + | Home Phone [...] Providers + +------+ + | Care Spool Fixer Name | Role | Phone | [...] of this encounter Progress Notes Interface, Electronic Data Interchange Specialist In - 2006 1:06 AM PDTCLINIC DATE: 06/24/2003 ORTHOPEDIC CLINIC HISTORY: This is a 43-year-old obese female followed for right hip degenerative joint disease, returns to clinic today having had no relief after her last 2 fluoroscopically guided cortisone injections on October 05, 2002, and January 26, 2003. The x-rays at that time revealed uvmzdrpy-xz-bgnoywiq degenerative joint disease. I confirmed that the [...] She does continue to drive in from [place] for her care here. She continues to [...] times per day. PHYSICAL EXAMINATION GENERAL: A hvsrtbij-yf-mjgppgom obese short statured woman who ambulates with [...] authorization has been obtained. Lloyd Garcia M.D. Ocean Freight Agent of Orthopedics and Rehabilitation / [id number] / [id number] / [id number] / cc: Ninfa Guillen M.D. [address] [place] [address] [id number] signed by Interface, Electronic Data Interchange Specialist In at 2006 1:06 AM [facility] umented in this encounter Plan of Treatment Not on filedocumented as of this encounter Visit Diagnoses Not on filedocumented in this encounter"
--- OUTSIDE RECORDS SUMMARY | ~2019-02-26 | XMS | Encounter Summary ---
Demographics + + + | Address | [address] | | | [place] [address] | + + + | Home Phone [...] Providers + +------+ + | Care Research Agricultural Engineer Name | Role | Phone | [...] Lira | | | | | | [facility] | | | | | | Mailcode: PV430 | | | | | | Physician'yokasta Ocampo | | | | | | [place], [place] | | | | | | [address] | | | | | | [phone] | | | +--------+ + + + [...] + + + | [facility] | [address] | [place] [address] | | | PATHOLOGY | [address] | | | + + + + + | [facility] | [address] | [place] [address] | | | PATHOLOGY | [address] [...] DEPARTMENT OF | [address] | [place] [address] | | | PATHOLOGY | [address] | | | + + + + + | [facility] DEPARTMENT | [address] | [place] [address] | | | PATHOLOGY | [address] [...] DEPARTMENT OF | [address] | [place] [address] | | | PATHOLOGY | [address] | | | + + + + + | [facility] | [address] | [place] [address] | | | PATHOLOGY | [address] [...] + | [facility] DEPART[facility] | [address] | [place] [address] | | | PATHOLOGY | [address] | | | + + + + + | [facility] | [facility] | [place] [address] | | | PATHOLOGY | [address] [...]
--- OUTSIDE RECORDS SUMMARY | ~2019-02-26 | XMS | Encounter Summary ---
Demographics + + + | Address | [address] | | | [place] [address] | + + + | Home Phone [...] Team Providers + +------+ + | Care Bean Sorter Name | Role | Phone | + +------+ + PCP | Unavailable | + +------+ + Encounter Details +--------+ + + + + | Date | Type | Department | Care Team | Description | +--------+ + + + + | 12/23/ | Nurse Licensed Practical | Orthopaedics at | Gino Baker MD | Osteoarthritis of | | 2006 | | [facility] [address] | [address] | Hip (Primary Dx) | | | | [facility] | [address] [place], | | | | | Mailcode: PV430 | [place] [address] | | | | | [address] | | | | | | [place], [place] | | | | | | [address] | | | | | | [phone] | | | +--------+ + + + [...]
--- OUTSIDE RECORDS SUMMARY | ~2019-02-26 | XMS | Encounter Summary ---
Demographics + + + | Address | [address] | | | [place] [address] | + + + | Home Phone [...] Team Providers + +------+ + | Care Junction Maker Name | Role | Phone | [...] as of this encounter Progress Notes Interface, Phlebotomy Program Coordinator In - 04/15/2006 1:11 AM PDTCLINIC DATE: [...] age and her obesity. Lloyd Garcia M.D. Cra Officer of Orthopedics and Rehabilitation / [id number] / [id number] / [id number] / cc: Rinaldi M.D. [address], [place] [id number] signed by Interface, Phlebotomy Program Coordinator In at 04/15/2006 1:1 1 AM PDTInterface, Phlebotomy Program Coordinator In - 04/15/2006 1:11 AM PDTCLINIC DATE: [...] her injection. MD Lloyd Merritt M.D. / [id number] / [id number] / [id number] / Tdocumented in this encounter Plan of Treatment Not on filedocumented as of this encounter Visit Diagnoses Not on filedocumented in this encounter"
--- OUTSIDE RECORDS SUMMARY | ~2019-02-26 | XMS | Encounter Summary ---
Demographics + + + | Address | [address] | | | [place] [address] | + + + | Home Phone [...] Team Providers + +------+ + | Care Automation And Controls Manager Name | Role | Phone | [...] [facility] [address] | [address] [facility] | | | | | [facility] | [facility] | | | | | Mailcode: PV430 | [place], [place] | | | | | [facility] | [address] | | | | | [place], [place] | [phone] | | | | | [address] | | | | | | [phone] | | | +--------+ + + + [...]
--- OUTSIDE RECORDS SUMMARY | ~2019-02-26 | XMS | Encounter Summary ---
Demographics + + + | Address | [address] | | | [place] [address] | + + + | Home Phone [...] Team Providers + +------+ + | Care Pillowcase Folder Name | Role | Phone | [...] + + + + | 10/24/ | Control Systems Designer | Infectious | Carolina Putnam | | | 2010 | | Diseases at [facility] 3rd | [address] | | | | | Floor [address] | [facility], | | | | | [facility] | [place] [address] | | | | | Mailcode: L457 | [phone] | | | | | [address]camp[address] | | | | | | [place], [place] | | | | | | [address] | | | | | | [phone] | | | +--------+ + + + [...]
--- OUTSIDE RECORDS SUMMARY | ~2019-02-26 | XMS | Encounter Summary ---
Demographics + + + | Address | [address] | | | [place] [address] | + + + | Home Phone [...] Providers + +------+ + | Care Metal Cnc Operator Name | Role | Phone | + +------+ + | Travis Mcginnis MD | PCP | Unavailable | + +------+ + Encounter Details +--------+ + + + + | Date | Type | Department | Care Team | Description | +--------+ + + + + | 02/20/ | Hospital | Diagnostic | | | | 2009 | Encounter | Radiology at [facility] | | | | | | [address] [facility] | | | | | | [facility] | | | | | | Mailcode: PV450 | | | | | | [address] | | | | | | [place], [place] | | | | | | [address] | | | | | | [phone] | | | +--------+ + + + [...] | + + + +---------+--------+ + | [place]-3 Fatty | Take by mouth. | | [...]
--- OUTSIDE RECORDS SUMMARY | ~2019-02-26 | XMS | Encounter Summary ---
Demographics + + + | Address | [address] | | | [place] [address] | + + + | Home Phone [...] Team Providers + +------+ + | Care Nitro Worker Name | Role | Phone | [...] [facility] | [address] | [place] [address] | | | PATHOLOGY | [address] | | | + + + + + | [facility] | [facility] | [place] [address] | | | PATHOLOGY | [address] [...] by | | | | | | [facility] | | | | | | [facility]. | | | | + + + + + + + + | Specimen | + + | | + + + + + + + | Performing | Address | City/State/Zipcode | Phone Number | | Organization | | | | + + + + + | [facility] | [address] | [place] [address] | | | LABORATORY | | | [...] | [facility] DEPARTMENT OF | [address] | [place] [address] | | | PATHOLOGY | [address] | | | + + + + + | [facility] DEPARTMENT OF | [address] | [place] [address] | | | PATHOLOGY | [address] [...] | [facility] DEPARTMENT OF | [address] | [place] [address] | | | PATHOLOGY | [address] | | | + + + + + | [facility] | [facility] [address] | [place] [address] | | | PATHOLOGY | [address] [...] by | | | | | | [facility] | | | | | | [facility]. | | | | + + + + + + + + | Specimen | + + | | + + + + + + + | Performing | Address | City/State/Zipcode | Phone Number | | Organization | | | | + + + + + | [facility] | [address] | [place] [address] | | | LABORATORY | | | [...] OF | [address] | [place] [address] | | | PATHOLOGY | [address] | | | + + + + + | [facility] DEPARTMENT OF | [address] | [place] [address] | | | PATHOLOGY | [address] | | | + + + + + documented in this encounter Visit Diagnoses Not on filedocumented in this encounter"
--- OUTSIDE RECORDS SUMMARY | ~2019-02-26 | XMS | Encounter Summary ---
Demographics + + + | Address | [address] | | | [place] [address] | + + + | Home Phone [...] Providers + +------+ + | Care Pet Resort Concierge Name | Role | Phone | [...] | | | | | SACROILIAC | [place], [place] | Mailcode: | | | | | JOINT | [address] | [address] [facility] | | | | | W/NEEDLE | Phone: | Hospital | | | | | PLCMT | [phone] | [place], [place] | | | | | | Fax: | [address] | | | | | | [phone] | Phone: | | | | | | | [phone] | | | | | | | Fax: | | | | | | | [phone] | +--------+--------+ + + + + Reason [...] | | | | | | | [address] | | | | | | | [facility] | | | | | | | Rd [place], | | | | | | | [place] | | | | | | | [address] | | | | | | | Phone: | | | | | | | [phone] | | | | | | | Fax: | | | | | | | [phone] | +--------+--------+ + + + + Encounter [...] | Hip Pain; | | | | [facility] [address] | [facility] | Back Pain | | | | Mailcode: PV430 | [place], [place] | | | | | [facility] | [address] | | | | | [place], [place] | [phone] | | | | | [address] | | | | | | [phone] | | | +--------+---------+ + + + [...] | | | | | | staff. Nursing Education Consultant imaging | | | | | | [...]
--- OUTSIDE RECORDS SUMMARY | ~2019-02-26 | XMS | Encounter Summary ---
Demographics + + + | Address | [address] | | | [place] [address] | + + + | Home Phone [...] Providers + +------+ + | Care Ignition Expert Name | Role | Phone | + +------+ + | Marta Jenkins MANAGER OF ADMINISTRATION | PCP | | + +------+ + [...] | Roxann Cadet Mailcode: | [address]ala [place], | | | | | [address] [place], [place] | [place] [address] | | | | | [address] | | | | | | [phone] | | | +--------+ + + + [...]
--- OUTSIDE RECORDS SUMMARY | ~2019-02-26 | XMS | Encounter Summary ---
Demographics + + + | Address | [address] | | | [place] [address] | + + + | Home Phone [...] Providers + +------+ + | Care Restaurant Assistant Manager Name | Role | Phone | + +------+ + PCP | Unavailable | + +------+ + Encounter Details +--------+ + + + + | Date | Type | Department | Care Team | Description | +--------+ + + + + | 07/27/ | Agricultural Economics Professor | Orthopaedics at | Tesfaye Saenz | Osteoarthritis of | | 2007 | | [facility] [address] PA-C | Hip; Hip Pain | | | | [facility] | | | | | | Mailcode: PV430 | | | | | | Pat Ocampo | | | | | | [place], [place] | | | | | | [address] | | | | | | [phone] | | | +--------+ + + + [...] | + +---------+ + + | [facility] DEPARTMENT OF | | | | [...]
--- OUTSIDE RECORDS SUMMARY | ~2019-02-26 | XMS | Encounter Summary ---
Demographics + + + | Address | [address] | | | [place] [address] | + + + | Home Phone [...] + +------+ + | Care Director Of Psychiatry Name | Role | Phone | + [...] as of this encounter Progress Notes Interface, Coal Wheeler In - 04/28/2005 6:17 PM PDTClinic Date: [...] completed this weekend. Lloyd Garcia M.D. Teacher Of Gifted Students, Orthopedics and Rehabilitation / [id number] / [id number] / 33530 / [id number] cc: Ninfa Guillen M.D. [address] [place] [address], [place] [address]Amtndbaulhltig signed by Interface, Coal Wheeler In at 04/28/2005 6:1 7 PM PDTdocumented in this encounter Plan of Treatment Not on filedocumented as of this encounter Visit Diagnoses Not on filedocumented in this encounter"
--- OUTSIDE RECORDS SUMMARY | ~2019-02-26 | XMS | Clinical Summary ---
Demographics + + + | Address | [address] | | | [place] [address] | + + + | Home Phone [...] Team Providers + +------+ + | Care Steward/Stewardess Room Name | Role | Phone | + [...] abdominal pain. Seen Hood Sommer | | [facility] Colonoscopy 11/02/08diverticulosis sigmoid and | | [...] Right: | YAMILA | | 08/15/ | [id number] | | - [id number]: Qty: 1 | | | [employer] | | 2018 | / | | on 11/25/2016 by Rustam Schmid | | Ureter | - YAMILA | | | /[id number] | | MD Cordelia | | | [...] | [employer] | [employer] | [id number] | | [phone] | | [employer] | [...] gigi | | | 7 (Home) | [address] | + +--------+ +--------+ + + Advance Directives Patient has advance care planning documents, and code status on file. For more information, please contact:[facility] [place] [address] + + + + + | Code Status | Date | Date | Comments | | | Activated | Inactivated | | + + + + + | Full Code | 11/25/2016 | 11/25/2016 | | | | 12:09 | 17:28 | | + + + + +
--- OUTSIDE RECORDS SUMMARY | ~2019-02-26 | XMS | Encounter Summary ---
Demographics + + + | Address | [address] | | | [place] [address] | + + + | Home Phone [...] Providers + +------+ + | Care Assistant Food Service Director Name | Role | Phone | + +------+ + | Marta Jenkins METERS SUPERINTENDENT | PCP | | + +------+ + Encounter Details +--------+ + + + + | Date | Type | Department | Care Team | Description | +--------+ + + + + | 11/19/ | Documentati | Digestive Health | Wanda López ACNP | | | 2019 | on | Center at [facility] [address] | [address] | | | | | [address] | Roxann Ayala [place], | | | | | Mailcode: [place] | [place] [address] | | | | | for Health and | [phone] | | | | | [facility], [facility] | | | | | | [place], [place] | | | | | | [address] | | | | | | [phone] | | | +--------+ + + + [...]
--- OUTSIDE RECORDS SUMMARY | ~2019-02-26 | XMS | Encounter Summary ---
Demographics + + + | Address | [address] | | | [place] [address] | + + + | Home Phone [...] Providers + +------+ + | Care Program Management Specialist Name | Role | Phone | + +------+ + | Marta Jenkins SENIOR LIBRARIAN | PCP | | + +------+ + [...] | obesity | [address] | [address] | | | | | ([facility]) | [address] | Mailcode: | | | | | Procedures | Rd | [facility] | | | | | PHYSICAL | [place], [place] | for Health | | | | | THERAPY | [address] | and Healing, | | | | | REFERRAL | Phone: | 1st floor | | | | | | [phone] | [place], [place] | | | | | | Fax: | [address] | | | | | | [phone] | Phone: | | | | | | | [phone] | | | | | | | Fax: | | | | | | | [phone] | +--------+--------+ + + + + Encounter Details +--------+ + + + + | Date | Type | Department | Care Team | Description | +--------+ + + + + | 11/19/ | Mathematics Professor | Digestive Health | Wanda López ACNP | Morbid obesity (HCC) | | 2019 | | Center at [facility] [address] | [address] | (Primary Dx) | | | | [address] | Roxann Ayala [place], | | | | | Mailcode: [place] | [place] [address] | | | | | for Health and | [phone] | | | | | [facility], [facility] 2 | | | | | | [place], [place] | | | | | | [address] | | | | | | | [...]
--- OUTSIDE RECORDS SUMMARY | ~2019-02-26 | XMS | Encounter Summary ---
Demographics + + + | Address | [address] | | | [place] [address] | + + + | Home Phone [...] Team Providers + +------+ + | Care Necktie Turner Name | Role | Phone | [...] as of this encounter Progress Notes Interface, Brand Sales Manager In - 04/28/2005 5:10 PM PDTClinic Date: 08/31/2003 Orthopedic The patient called on August 31, 2003, requesting a prescription refill for oxycodone. A prescription refill was granted 50, 5 mg oxycodone was sent. This prescription refill was handled by Mariella Camacho. Dev Fleming M.D. / [id number] / [id number] / 99614 / Tdocumented in this encounter Plan of Treatment Not on filedocumented as of this encounter Visit Diagnoses Not on filedocumented in this encounter"
--- OUTSIDE RECORDS SUMMARY | ~2019-02-26 | XMS | Encounter Summary ---
Demographics + + + | Address | [address] | | | [place] [address] | + + + | Home Phone [...] Providers + +------+ + | Care Four H Agent Name | Role | Phone | [...] as of this encounter Progress Notes Interface, Order Entry In - 08/31/2006 1:03 AM PSTCLINIC DATE: [...] more. PHYSICAL EXAMINATION: She ambulates with a nxhzazdv-ms-hfbncs right coxalgic gait leaning over the right [...] her primary care physician. Lloyd Garcia M.D. Deicer Repairer, Orthopedics and Rehabilitation / 60182 / 615002 / 24442 / 73151 C: 10/23/1999 kavita cc: Helio Noland M.D. [facility] [address] Benson Cooper M.D. [facility] Orthopedics Rehabilitation [address], [address] [place] documented in this encounter Plan of Treatment Not on filedocumented as of this encounter Visit Diagnoses Not on filedocumented in this encounter"
--- OUTSIDE RECORDS SUMMARY | ~2019-02-26 | XMS | Encounter Summary ---
Demographics + + + | Address | [address] | | | [place] [address] | + + + | Home Phone [...] Team Providers + +------+ + | Care Flocculator Operator Name | Role | Phone | [...] | Physical | Diagnoses | Arias, | Krishna, | | | | Medicine and | Lumbar | Kalyan Barrientos MD | MD Vince | | | | Rehab / | radiculopath | [address] | [address] | | | | Orthopedics | y | [address] | [address] | | | | | Procedures | [address] | Rd [place], | | | | | CONSULT TO | [place], [place] | [place] | | | | | ORTHOPEDICS | [address] | [address] | | | | | AND | Phone: | Phone: | | | | | REHABILITATI | [phone] | [phone] | | | | | ON | Fax: | Fax: | | | | | | [phone] | [phone] | +--------+--------+ + + + + Encounter Details +--------+---------+ + + + | Date | Type | Department | Care Team | Description | +--------+---------+ + + + | 04/10/ | Office | Orthopaedic Spine | Vince Krishna MD | Back pain (Primary | | 2010 | Visit | Center at [facility] [address] | [address] | Dx) | | | | [address] | [address] [place], | | | | | Mailcode: CH8N | [place] [address] | | | | | [facility] | [phone] | | | | | and Rajiv, 8th | | | | | | Floor [place], [place] | | | | | | [address] | | | | | | [phone] | | | +--------+---------+ + + + [...]
--- OUTSIDE RECORDS SUMMARY | ~2019-02-26 | XMS | Encounter Summary ---
Demographics + + + | Address | [address] | | | [place] [address] | + + + | Home Phone [...] Team Providers + +------+ + | Care Selling Manager Name | Role | Phone | + +------+ + PCP | Unavailable | + +------+ + Encounter Details +--------+ + + + + | Date | Type | Department | Care Team | Description | +--------+ + + + + | 10/08/ | Results | Plastic and | Martin Adrian | | | 2003 | Only | Reconstructive | [address] | | | | | Surgery -Hand | [address] [place] | | | | | Surgery [address] | [place] [address] | | | | | [address] | | | | | | Road Mailcode: | | | | | | PP[address] Physicians | | | | | | [place] | | | | | | [place] [address] | | | | | | [phone] | | | +--------+ + + + [...] + + + + | PRODUCT | [id number] | | [facility] | | | UNIT [...] [facility] DEPARTMENT OF | [address] | [place] [address] | | | PATHOLOGY | [address] | | | + + + + + | [facility] DEPARTMENT OF | [address] | [place] [address] | | | PATHOLOGY | [address] [...] + + + + | PRODUCT | [id number] | | [facility] | | | UNIT [...] | [facility] DEPARTMENT OF | [address] [facility] | [place] [address] | | | PATHOLOGY | [address] | | | + + + + + | [facility] DEPARTMENT OF | [address] [facility] | [place] [address] | | | PATHOLOGY | [address] [...] + + + | [facility] | [address] | [place] [address] | | | PATHOLOGY | [address] | | | + + + + + | [facility] | [address] | [place] [address] | | | PATHOLOGY | [address] | | | + + + + + documented in this encounter Visit Diagnoses Not on filedocumented in this encounter"
--- OUTSIDE RECORDS SUMMARY | ~2019-02-26 | XMS | Encounter Summary ---
Demographics + + + | Address | [address] | | | [place] [address] | + + + | Home Phone [...] Team Providers + +------+ + | Care Fittings Tightener Name | Role | Phone | + [...] as of this encounter Progress Notes Interface, Steam Fitter In - 07/14/2006 1:10 AM PDTCLINIC DATE: [...] in the system. Dariana Champion M.A. / [id number] / [id number] / [id number] / Watt Steam Fitter In - 07/10/2006 1:00 AM PDTCLINIC DATE: [...] insurance at and spoke with Timbo. This vaccine customer representative stated that this prescription had been [...] over the phone. Dariana Champion M.A. / 474345 / 145821 / 33129 / Tdocumented in this encounter Plan of Treatment Not on filedocumented as of this encounter Visit Diagnoses Not on filedocumented in this encounter"
--- OUTSIDE RECORDS SUMMARY | ~2019-02-26 | XMS | Encounter Summary ---
Demographics + + + | Address | [address] | | | [place] [address] | + + + | Home Phone [...] Team Providers + +------+ + | Care Wax Engraver Name | Role | Phone | [...] Floor [address] | [facility] | | | | | [facility] | [place] [address] | | | | | Mailcode: L457 | [phone] | | | | | Physicians Terrence | | | | | | [place], [place] | | | | | | [address] | | | | | | [phone] | | | +--------+ + + + [...] [address] | [facility] | [phone] | | [facility] | | [address] | | + + + + + | [place] | [address] | [facility] | | | [facility] | | [address] | | + + + + + [...] [address] | [facility] | [phone] | | [facility] | | [address] | | + + + + + | [facility] | [address] | [facility] | | | [facility] | | [address] | | + + + + + documented in this encounter Visit Diagnoses Not on filedocumented in this encounter"
--- OUTSIDE RECORDS SUMMARY | ~2019-02-26 | XMS | Encounter Summary ---
Demographics + + + | Address | [address] | | | [...] Providers + +------+ + | Care Food Service Lead Name | Role | Phone | + +------+ + | Marta Jenkins ADVERTISING MANAGER | PCP | | + +------+ [...] | [address] Mailcode: | [address] Ayala [place], | | | | | [address] [place], [place] | [place] [address] | | | | | [address] | | | | | | [phone] | | | +--------+ + + + [...] + + + + + | [facility] | [address] | [place] [address] | | | LAB-MICRO | | | [...] Hip | | | | | | Joint Fluid | | | | [...] | | | | | performed at [place] | | | | | | [facility] | | | | | | Laboratory. | | | | + + + + + + + + | Specimen | + + | | + + + + + + + | Performing | Address | City/State/Zipcode | Phone Number | | Organization | | | | + + + + + | [facility] | [address] | [place] [address] | | | LAB-MICRO | | | [...] + + + + + | [facility] | [address] | [place] [address] | | | LAB-MICRO | | | [...] + + + | [facility] | [address] | [place] [address] | | | LAB-MICRO | | | [...] + + + | [facility] | [address] | [place] [address] | | | LAB-MICRO | | | [...] | | | | | performed at [place] | | | | | | [facility] | | | | | | Laboratory | | | | + + + + + + + + | Specimen | + + | | + + + + + + + | Performing | Address | City/State/Zipcode | Phone Number | | Organization | | | | + + + + + | [facility] | [address] | [place] [address] | | | LAB-MICRO | | | [...] | | | | jose roberto Report: No growth | | | | | | after 1 day. | | | | | | Culture examined | | | | | | daily. Report | | | | | | will be updated if | | | | | | growth | | | | | | occurs. Final | | | | | | Report: No growth after | | | | | | 3 days. No | | | | | | anaerobes isolated | | | | | | Final ReportComment: | | | | | | Test performed at | | | | | | [facility] | | | | | | [facility]. | | | | + + + + + + + + | Specimen | + + | | + + + + + + + | Performing | Address | City/State/Zipcode | Phone Number | | Organization | | | | + + + + + | [facility] | [address] | [place] [address] | | | LAB-MICRO | | | [...] | | | | | | | Smear..............: [...] | | | | | performed at [place] | | | | | | [facility] | | | | | | Laboratory. | | | | + + + + + + + + | Specimen | + + | | + + + + + + + | Performing | Address | City/State/Zipcode | Phone Number | | Organization | | | | + + + + + | [facility] | [address] | [place] [address] | | | LAB-MICRO | | | [...] + + + | [facility] | [address] | [place] [address] | | | LAB-MICRO | | | [...] + + + + + | [facility] | [address] | [place] [address] | | | LAB-MICRO | | | [...] + + + + + | [facility] | [address] | [place] [address] | | | LAB-MICRO | | | [...] | | | | | performed at [place] | | | | | | [facility] | | | | | | Laboratory | | | | + + + + + + + + | Specimen | + + | | + + + + + + + | Performing | Address | City/State/Zipcode | Phone Number | | Organization | | | | + + + + + | [facility] | [address] | [place] [address] | | | LAB-MICRO | | | [...] + + + | [facility] | [address] | [place] [address] | | | LAB-MICRO | | | [...] | | | | jose roberto Report: No growth | | | | | | after 1 day. | | | | | | Culture examined | | | | | | daily. Report | | | | | | will be updated if | | | | | | growth | | | | | | occurs. Final | | | | | | Report: No growth after | | | | | | 3 days. Final | | | | | | ReportComment: Test | | | | | | performed at [place] | | | | | | [facility] | | | | | | Laboratory. | | | | + + + + + + + + | Specimen | + + | | + + + + + + + | Performing | Address | City/State/Zipcode | Phone Number | | Organization | | | | + + + + + | [facility] | [address] | [place] [address] | | | LAB-MICRO | | | | + + + + + documented in this encounter Visit Diagnoses Not on filedocumented in this encounter"
--- OUTSIDE RECORDS SUMMARY | ~2019-02-26 | XMS | Encounter Summary ---
Demographics + + + | Address | [address] | | | [place] [address] | + + + | Home Phone [...] Team Providers + +------+ + | Care Electrician Ship Name | Role | Phone | [...] as of this encounter Progress Notes Interface, Mill Crane Operator In - 04/28/2005 5:10 PM PDTClinic Date: 08/31/2003 Orthopedic The patient called on August 31, 2003, requesting a prescription refill for oxycodone. A prescription refill was granted 50, 5 mg oxycodone was sent. This prescription refill was handled by Mariella Camacho. Dev Fleming M.D. / [id number] / [id number] / [id number] / Tdocumented in this encounter Plan of Treatment Not on filedocumented as of this encounter Visit Diagnoses Not on filedocumented in this encounter"
--- OUTSIDE RECORDS SUMMARY | ~2019-02-26 | XMS | Encounter Summary ---
Demographics + + + | Address | [address] | | | [place] [address] | + + + | Home Phone [...] Team Providers + +------+ + | Care Mens Locker Room Attendant Name | Role | Phone [...] | | | | [address] | [facility] | | | | | (sacroiliac) | [facility] | Road | | | | | joint | Rd | Mailcode: | | | | | inflammation | [place], [place] | [address] [facility] | | | | | ([facility]) | [address] | Hospital | | | | | Procedures | | [place], [place] | | | | | CT INJ | | [address] | | | | | SACROILIAC | | Phone: | | | | | JOINT | | [phone] | | | | | W/NEEDLE | | Fax: | | | | | PLCMT | | [phone] | +--------+--------+ + + + + Reason [...] | | | | | | | [facility] | | | | | | | Rd [place], | | | | | | | [place] | | | | | | | [address] | | | | | | | Phone: | | | | | | | [phone] | | | | | | | Fax: | | | | | | | [phone] | +--------+--------+ + + + + Encounter [...] | SI (sacroiliac) | | | | [facility] [address] | [facility] | joint inflammation | | | | Mailcode: PV430 | [place], [place] | ([facility]) | | | | [facility] | [address] | | | | | [place], [place] | [phone] | | | | | [address] | | | | | | [phone] | | | +--------+---------+ + + + [...] TYRONE COLBY MD [facility] [address] [facility] Mailcode: Pv430 [facility] [address] esfaye Saenz PA-C - 02/20/2010 3:15 PM [...] None. | | | | | | Motion Picture Camera Lens Technician: Dr. Moss, | | | | | | financial institution president. | | | | | | Coordinator Of Evaluation: | | | | | | Dr. [...] the | | | | | | systems support officer. Breaker Unit Assembler | | | | | | [...]
--- OUTSIDE RECORDS SUMMARY | ~2019-02-26 | XMS | Encounter Summary ---
Demographics + + + | Address | [address] | | | [place] [address] | + + + | Home Phone [...] | | | unspecified | | Rd [place], | | | | | whether | | [place] | | | | | generalized | | [address] | | | | | or | | Phone: | | | | | localized, | | [phone] | | | | | pelvic | | Fax: | | | | | region and | | [phone] | | | | | thigh Pain [...] | Osteoarthritis of | | | | [facility] [address] | [facility] | hip; Infection and | | | | Mailcode: PV430 | [place], [place] | inflammatory | | | | [facility] | [address] | reaction due to | | | | [place], [place] | [phone] | internal joint | | | | [address] | | prosthesis ([facility]); | | | | [phone] | | EE-NO SHOW | +--------+---------+ + [...]
--- OUTSIDE RECORDS SUMMARY | ~2019-02-26 | XMS | Encounter Summary ---
Demographics + + + | Address | [address] | | | [place] [address] | + + + | Home Phone [...] Team Providers + +------+ + | Care Spooling Supervisor Name | Role | Phone | [...]
--- OUTSIDE RECORDS SUMMARY | ~2019-02-26 | XMS | Encounter Summary ---
Demographics + + + | Address | [address] | | | [place] [address] | + + + | Home Phone [...] Team Providers + +------+ + | Care Polymer Tester Name | Role | Phone | + +------+ + | rTavis Mcginnis MD | PCP | Unavailable | [...] | Procedures | [address] | Rd [place], | | | | | CONSULT TO | [place], [place] | [place] | | | | | ORTHOPEDICS | [address] | [address] | | | | | AND | Phone: | Phone: | | | | | REHABILITATI | [phone] | [phone] | | | | | ON | Fax: | Fax: | | | | | | [phone] | [phone] | +--------+--------+ + + + + Encounter Details +--------+---------+ + + + | Date | Type | Department | Care Team | Description | +--------+---------+ + + + | 04/10/ | Office | Orthopaedic Spine | Vince Krishna MD | Back pain (Primary | | 2010 | Visit | Center at [facility] [address] | [address] | Dx) | | | | [address] | [address] [place], | | | | | Mailcode: CH8N | [place] [address] | | | | | [facility] | [phone] | | | | | and [address], 8th | | | | | | Floor [place], [place] | | | | | | [address] | | | | | | [phone] | | | +--------+---------+ + + + [...]
--- OUTSIDE RECORDS SUMMARY | ~2019-02-26 | XMS | Encounter Summary ---
Demographics + + + | Address | [address] | | | [place] [address] | + + + | Home Phone [...] Team Providers + +------+ + | Care Experimental Mechanic [employer] Name | Role | Phone | + [...] as of this encounter Progress Notes Interface, Marketing Traffic Coordinator In - 07/28/2006 5:01 AM PSTCLINIC DATE: [...] from earlier surgical intervention. Lloyd Garcia M.D. Contract Processor Orthopedics and Rehabilitation / [id number] / [id number] / [id number] / cc: Helio Noland M.D. [address] [place], [place] [address]Xemtvdboivfcor signed by Interface, Marketing Traffic Coordinator In at 07/28/2006 5: 01 AM PSTInterface, Marketing Traffic Coordinator In - 07/28/2006 5:01 AM PSTCLINIC DATE: [...] weeks' time. Malcom Her M.D. / SALEEM [id number] / [id number] / 32655 / 02700 Tdocumented in this encounter Plan of Treatment Not on filedocumented as of this encounter Visit Diagnoses Not on filedocumented in this encounter"
--- OUTSIDE RECORDS SUMMARY | ~2019-02-26 | XMS | Encounter Summary ---
Demographics + + + | Address | [address] | | | [place] [address] | + + + | Home Phone [...] Team Providers + +------+ + | Care Wrecker Operator Name | Role | Phone | [...] of this encounter Progress Notes Interface, Electrical Designer Drafter In - 06/19/2006 1:01 AM PDTCLINIC DATE: [...] ALLERGIES: None. SOCIAL HISTORY: She lives in [facility], and she is currently not working. [...] the appointment. Her current phone number is [phone]. At this point, we will not schedule her for a followup until we have these other appointments, and then we will have her followup with . Again, we will forward our recommendations to him. Pricilla Metcalf M.D. Kalyan Wu M.D. [facility] / [id number] / [id number] / [id number] / [id number] cc: Lloyd Garcia M.D. PV-430 docume nted in this encounter Plan of Treatment Not on filedocumented as of this encounter Visit Diagnoses Not on filedocumented in this encounter"
--- OUTSIDE RECORDS SUMMARY | ~2019-02-26 | XMS | Encounter Summary ---
Demographics + + + | Address | [address] | | | [place] [address] | + + + | Home Phone [...] Providers + +------+ + | Care Specialist Physicians Name | Role | Phone | + [...] as of this encounter Progress Notes Interface, Landscape Nurseryman In - 04/19/2006 3:09 AM PDTCLINIC DATE: [...] questions. Jason Castano M.A. Orthopedics / HS [id number] / [id number] / [id number] / Tdocumented in this encounter Plan of Treatment Not on filedocumented as of this encounter Visit Diagnoses Not on filedocumented in this encounter"
--- OUTSIDE RECORDS SUMMARY | ~2019-02-26 | XMS | Encounter Summary ---
Demographics + + + | Address | [address] | | | [place] [address] | + + + | Home Phone [...] Providers + +------+ + | Care Quality Assistant Name | Role | Phone | + +------+ + | Marta Jenkins DICE TABLE OPERATOR | PCP | | + +------+ + Encounter Details +--------+ + + + + | Date | Type | Department | Care Team | Description | +--------+ + + + + | 06/11/ | Ancillary | Registration [id number] | Lloyd Garcia MD | | | 2005 | Registratio Manule Bergman | | | | | n | [facility] Mailcode: | | | | | | RPB[address] [place], [place] | | | | | | [address] | | | | | | [phone] | | | +--------+ + + + [...]
--- OUTSIDE RECORDS SUMMARY | ~2019-02-26 | XMS | Encounter Summary ---
Demographics + + + | Address | [address] | | | [place] [address] | + + + | Home Phone [...] Team Providers + +------+ + | Care Labeling Specialist Name | Role | Phone | [...] as of this encounter Progress Notes Interface, Rocket Motor Tester In - 06/23/2006 1:07 AM PDTCLINIC [...] Ken Mejia M.D. Lloyd Garcia M.D. / [id number] / [id number] / [id number] / Tdocumented in this encounter Plan of Treatment Not on filedocumented as of this encounter Visit Diagnoses Not on filedocumented in this encounter"
--- OUTSIDE RECORDS SUMMARY | ~2019-02-26 | XMS | Encounter Summary ---
Demographics + + + | Address | [address] | | | [place] [address] | + + + | Home Phone [...] Team Providers + +------+ + | Care Whizzer Operator Name | Role | Phone | [...] Transcriptions | + + | Interface, Manager Economic In - 02/27/2006 3:05 AM PDT Date: [...] | | Malcom GarciaRT/aceD: 09/14/2003T: 09/15/2003 9:10 [id number] | |bellberna. The proximal greater trochanter fragment [...] |RT/magalie | | | | A | |[id number] | + + documented in this encounter Visit Diagnoses Not on filedocumented in this encounter"
--- OUTSIDE RECORDS SUMMARY | ~2019-02-26 | XMS | Encounter Summary ---
Demographics + + + | Address | [address] | | | [place] [address] | + + + | Home Phone [...] Providers + +------+ + | Care Roundhouse Firer/Fireman Name | Role | Phone | + [...] [address] | | | | | [facility] | [address], [place] | | | | | Mailcode: PV430 | [address] | | | | | Physician's Terrence | | | | | | [place], [place] | | | | | | [address] | | | | | | [phone] | | | +--------+ + + + [...] + | Performing | Address | City[facility] | Phone Number | | Organization | [...]
--- OUTSIDE RECORDS SUMMARY | ~2019-02-26 | XMS | Encounter Summary ---
Demographics + + + | Address | [address] | | | [place] [address] | + + + | Home Phone [...] Team Providers + +------+ + | Care Gathering Machine Setter Name | Role | Phone | + +------+ + | Marta Jenkins CHILD'S NURSE | PCP | | + +------+ + [...] | Roxann Cadet Mailcode: | Roxann [address] [place], | | | | | [address] [place], [place] | [place] [address] | | | | | [address] | | | | | | [phone] | | | +--------+ + + + [...]
--- OUTSIDE RECORDS SUMMARY | ~2019-02-26 | XMS | Encounter Summary ---
Demographics + + + | Address | [address] | | | [place] [address] | + + + | Home Phone [...] Team Providers + +------+ + | Care Coin Dealer Name | Role | Phone | [...] as of this encounter Progress Notes Interface, Info Print Press Operator In - 07/14/2006 1:10 AM PDTCLINIC DATE: [...] improve her hip pain. Lloyd Garcia M.D. Supervisor Record Press, Orthopedics and Rehabilitation / [id number] / [id number] / [id number] / [id number] cc: Helio Xie M.D. [place], [place] [address]Rxbqrrfgswmnxv signed by Interface, Info Print Press Operator In at 07/14/2006 1:1 0 AM PDTdocumented in this encounter Plan of Treatment Not on filedocumented as of this encounter Visit Diagnoses Not on filedocumented in this encounter"
--- OUTSIDE RECORDS SUMMARY | ~2019-02-26 | XMS | Encounter Summary ---
Demographics + + + | Address | [address] | | | [place] [address] | + + + | Home Phone [...] Team Providers + +------+ + | Care Functional Consultant Name | Role | Phone | [...] | | | | | [address] [facility] | | | | | | [facility] | | | | | | Mailcode: PV450 | | | | | | [address] Ocampo | | | | | | [place], [place] | | | | | | [address] | | | | | | [phone] | | | +--------+ + + + [...] + + + +---------+ + + | [place]-3 Fatty | Take by mouth. | | [...]
--- OUTSIDE RECORDS SUMMARY | ~2019-02-26 | XMS | Encounter Summary ---
Demographics + + + | Address | [address] | | | [place] [address] | + + + | Home Phone [...] + +------+ + | Care Medical Office Asst Name | Role | Phone | [...] Lira | | | | | | [facility] | | | | | | Mailcode: PV430 | | | | | | Physician'yokasta Ocampo | | | | | | [place], [place] | | | | | | [address] | | | | | | [phone] | | | +--------+ + + + [...] | | | | HIP KNEE | Reagan HERRERA M.D.EXAM: | | | | | [...] | | + +---------+ + + | [facility] DEPARTMENT OF | | | | | RADIOLOGY | | | | + +---------+ + + documented in this encounter Visit Diagnoses Not on filedocumented in this encounter"
--- OUTSIDE RECORDS SUMMARY | ~2019-02-26 | XMS | Encounter Summary ---
Demographics + + + | Address | [address] | | | [place] [address] | + + + | Home Phone [...] Team Providers + +------+ + | Care Brewmaster Name | Role | Phone | + +------+ + | Travis Mcginnis MD | PCP | Unavailable | + +------+ + Encounter Details +--------+ + + + + | Date | Type | Department | Care Team | Description | +--------+ + + + + | 02/20/ | Hospital | Diagnostic | | | | 2009 | Encounter | Radiology at [facility] | | | | | | [address] [facility] | | | | | | [facility] | | | | | | Mailcode: PV450 | | | | | | [address] | | | | | | [place], [place] | | | | | | [address] | | | | | | [phone] | | | +--------+ + + + [...] | + + + +---------+--------+ + | [place]ippe[place]-3 Fatty | Take by mouth. | | [...]
--- OUTSIDE RECORDS SUMMARY | ~2019-02-26 | XMS | Encounter Summary ---
Demographics + + + | Address | [address] | | | [place] [address] | + + + | Home Phone [...] Providers + +------+ + | Care Burrer Machine Name | Role | Phone | [...] [facility] | | | | | [facility] | [place] [address] | | | | | Mailcode: L457 | [phone] | | | | | Physicians Terrence | | | | | | [place], [place] | | | | | | [address] | | | | | | [phone] | | | +--------+ + + + [...] | SEDIMENTATI | 48 | mm/hr | [facility] | | | ON RATE | | [...] | + + + + + | [facility] | [address] | [place] [address] | | | [facility] [place] | | | | + + + + + documented in this encounter Visit Diagnoses Not on filedocumented in this encounter"
--- OUTSIDE RECORDS SUMMARY | ~2019-02-26 | XMS | Encounter Summary ---
Demographics + + + | Address | [address] | | | [place] [address] | + + + | Home Phone [...] Team Providers + +------+ + | Care Slip Cover Seamstress Name | Role | Phone | + [...] as of this encounter Progress Notes Interface, Merchandise Execution Leader In - 11/23/2005 2:04 AM PST [id number] [facility] Date: 11/07/2005 Clinic: Orthopaedics Shelby Galdamez is a 46-year-old woman seen for evaluation of pain in the right hip and back. She provides a history that she was operated on in [address] Garcia at [facility] for osteoarthritis. She apparently had a [...] given a request to take home to [place] to see if she can get into [...] could formulate some plans. Her phone is #[phone]. Gino Baker M.D. KEE / SALEEM [id number] / [id number] / [id number] / [id number] cc: Quintin Acevedo [facility] [address] [place] [address] Electronically signed by Gino Baker 11-22-2005 02:58:59 PM documented i n this encounter Plan of Treatment Not on filedocumented as of this encounter Visit Diagnoses Not on filedocumented in this encounter"
--- OUTSIDE RECORDS SUMMARY | ~2019-02-26 | XMS | Encounter Summary ---
Demographics + + + | Address | [address] | | | [place] [address] | + + + | Home Phone | | + + + | Preferred Language | Unknown | + + + | Marital Status | Single | + + + | Denominational Affiliation | Unknown | + + + | Race | Unknown | + + + | Ethnic Group | Unknown | + + + Author + + + | Author | [facility] | + + + | Organization | [facility] | + + + | Address | Unknown | + + + | Phone | Unavailable | + + + Support + + +---------+ + | Name | Relationship | Address | Phone | + + +---------+ + | Kristel Teresa | ECON | Unknown | | + + +---------+ + Care Team Providers + +------+ + | Care Roofer Gypsum Name | Role | Phone | + [...] Other (pain | | 2019 | | [facility] | DO [address] | uncontrollable) | | | | [address] | [place] | | | | | [place], [place] | [address] | | | | | [address] | | | | | | [phone] | | | +--------+ + + + [...] [place] | | | | | | [address] | | | | | | | | +--------+---------+ + + + as of this encounter Visit Diagnoses Not on filein this encounter"
--- OUTSIDE RECORDS SUMMARY | ~2019-02-26 | XMS | Encounter Summary ---
Demographics + + + | Address | [address] | | | [place] [address] | + + + | Home Phone [...] Team Providers + +------+ + | Care Environmental Scientist Name | Role | Phone | [...] as of this encounter Progress Notes Interface, Casing Builder In - 06/19/2006 1:01 AM PDT [place] [facility] and [place] [address] [place], [place] [address] FAX Department of Orthopaedics, [facility] [id number] September 16, 2001 Kalyan Wu M.D. Department of Orthopedics and Rehabilitation [facility] RE: SHELBY GALDAMEZ MR #: [id number] DOS: 09/16/2001 Dear Nasir: I am referring [...] contact me directly. Sincerely, Lloyd Garcia M.D. Country Director Orthopedics and Rehabilitation / [id number] / [id number] / [id number] / 20301 C: 10/02/2001 [facility] cc: Helio Mann M.D. P.OJuan Jose [address] [id number] signed by Interface, Casing Builder In at 06/19/2006 1: 01 AM PDTdocumented in this encounter Plan of Treatment Not on filedocumented as of this encounter Visit Diagnoses Not on filedocumented in this encounter"
--- OUTSIDE RECORDS SUMMARY | ~2019-02-26 | XMS | Encounter Summary ---
Demographics + + + | Address | [address] | | | [place] [address] | + + + | Home Phone [...] Author + + + | Author | [facility] | + + + | Organization | [facility] | + + + | [...] Providers + +------+ + | Care Diamond Cleaver Name | Role | Phone | + [...] TARUN Bergman | | | | | [facility] | [facility], | | | | | Mailcode: PV430 | [place] [address] | | | | | Physician's Terrence | | | | | | [place], [place] | | | | | | [address] | | | | | | [phone] | | | +--------+ + + + [...]
--- OUTSIDE RECORDS SUMMARY | ~2019-02-26 | XMS | Encounter Summary ---
Demographics + + + | Address | [address] | | | [place] [address] | + + + | Home Phone [...] Providers + +------+ + | Care Cupola Tapper Name | Role | Phone | [...] Pankaj | | | | | at [facility] | [facility] | | | | | [address] | [place] [address] | | | | | [facility] | | | | | | Mailcode: OP12B Pankaj | | | | | | [address] [place] | | | | | | [facility] | | | | | | [place] [address] | | | | | | [phone] | | | +--------+ + + + [...] + + + | Please click | [facility] DEPT OF | | on view image for the detailed interpretation from [employer] results. | CARDIOLOGY | | | | + + + + + + + + | Performing | Address | City/State/Zipcode | Phone Number | | Organization | | | | + + + + + | [facility] DEPT OF | [address] | [place], [place] | | | CARDIOLOGY | [address] | [address] | | + + + + + | [facility]PT OF | [address] | [place], [place] | | | CARDIOLOGY | [address] | [address] | | + + + + + documented in this encounter Visit Diagnoses + + | Diagnosis | + + | Other specified pre-operative examination | + + documented in this encounter
--- OUTSIDE RECORDS SUMMARY | ~2019-02-26 | XMS | Encounter Summary ---
Demographics + + + | Address | [address] | | | [place] [address] | + + + | Home Phone [...] Providers + +------+ + | Care Chief Vendor Quality Name | Role | Phone | + +------+ + | Travis Mcginnis MD | PCP | Unavailable | + +------+ + Encounter Details +--------+ + + + + | Date | Type | Department | Care Team | Description | +--------+ + + + + | 10/14/ | Results | LAB REFERRED TESTS | Other, Faculty | | | 2010 | Only | [address] [facility] | [phone] | | | | | [facility] | | | | | | [place], [place] | | | | | | [address] | | | +--------+ + + + [...] + + | [facility] DEPT OF | [address] | [place], [place] | | | CARDIOLOGY | [address] | [address] | | + + + + + documented in this encounter Visit Diagnoses Not on filedocumented in this encounter"
--- OUTSIDE RECORDS SUMMARY | ~2019-02-26 | XMS | Encounter Summary ---
Demographics + + + | Address | [address] | | | [place] [address] | + + + | Home Phone [...] Providers + +------+ + | Care Nut Roaster Name | Role | Phone | + +------+ + | Marta Jenkins LIVESTOCK INSPECTOR | PCP | | + +------+ [...] | Roxann Cadet Mailcode: | Roxann Ayala [place], | | | | | [address] [place], [place] | [place] [address] | | | | | [address] | | | | | | [phone] | | | +--------+ + + + [...]
--- OUTSIDE RECORDS SUMMARY | ~2019-02-26 | XMS | Encounter Summary ---
Demographics + + + | Address | [address] | | | [place] [address] | + + + | Home Phone [...] Team Providers + +------+ + | Care Tailor Garment Fitter Name | Role | Phone | + [...] | Radiology | Diagnoses | Ari[place], | [address] Scan | | | | | Hip pain | Kalyan Barrientos MD | [address] | | | | | Back pain | [address] | | | | | Procedures | [address] | [address] | | | | | CT INJ | [address] | Road | | | | | [address] | [place], [place] | Mailcode: | | | | | [place] | [address] | [address] [facility] | | | | | W/NEEDLE | Phone: | Hospital | | | | | [facility] | [phone] | [facility] [place] | | | | | | Fax: | [address] | | | | | | [phone] | Phone: | | | | | | | [phone] | | | | | | | Fax: | | | | | | | [phone] | +--------+--------+ + + + + Diagnostic [...] | Kalyan Barrientos MD | [address] | | | | | Back pain | [address] | | | | | Procedures | [address] | [facility] | | | | | CT INJ | [address] | Road | | | | | [address] | [facility] [place] | Mailcode: | | | | | [place] | [address] | [address] [facility] | | | | | W/NEEDLE | Phone: | Hospital | | | | | PLCMT | [phone] | [facility] [place] | | | | | | Fax: | [address] | | | | | | [phone] | Phone: | | | | | | | [phone] | | | | | | | Fax: | | | | | | | [phone] | +--------+--------+ + + + + Encounter Details +--------+ + + + + | Date | Type | Department | Care Team | Description | +--------+ + + + + | 10/12/ | Hospital | Diagnostic Imaging | | | | 2009 | Encounter | Services at [facility] | | | | | | [address] [facility] | | | | | | [facility] | | | | | | Mailcode: [address] [facility] | | | | | | [facility], | | | | | | [place] [address] | | | | | | [phone] | | | +--------+ + + + [...] | | | | | | staff. Oss Architect imaging | | | | | | [...] [facility] DEPARTMENT OF | | | | | RADIOLOGY | | | | + +---------+ + + documented in this encounter Visit Diagnoses + + | Diagnosis | + + | Hip pain Pain in joint, pelvic region and thigh | + + | Back pain Backache, unspecified | + + documented in this encounter"
--- OUTSIDE RECORDS SUMMARY | ~2019-02-26 | XMS | Encounter Summary ---
Demographics + + + | Address | [address] | | | [place] [address] | + + + | Home Phone [...] Providers + +------+ + | Care Diabetes Solutions Specialist Name | Role | Phone | [...] of this encounter Progress Notes Interface, Manager Intermediate In - 04/28/2005 10:57 PM PDTClinic Date: [...] longer any fluid pocket. Lloyd Garcia M.D. Acquisitions Librarian, Orthopedics and Rehabilitation / [id number] / [id number] / [id number] / 42230 cc: Everett Ibrahim MD [address] [place], [place] [address]Tomizrvlgjlfqd signed by Interface, Manager Intermediate In at 04/28/2005 10:57 PM PDTdocumented in this encounter Plan of Treatment Not on filedocumented as of this encounter Visit Diagnoses Not on filedocumented in this encounter"
--- OUTSIDE RECORDS SUMMARY | ~2019-02-26 | XMS | Encounter Summary ---
Demographics + + + | Address | [address] | | | [place] [address] | + + + | Home Phone [...] + + + | Author | [facility] | + + + | Organization | [facility] | + + + | [...] Providers + +------+ + | Care Ice Seller Name | Role | Phone | + +------+ + | Marta Jenkins OCEAN FORWARDER | PCP | | + +------+ + [...] | Roxann Cadet Mailcode: | [address] [place], | | | | | [address] [place], [place] | [place] [address] | | | | | [address] | | | | | | [phone] | | | +--------+ + + + [...]
--- OUTSIDE RECORDS SUMMARY | ~2019-02-26 | XMS | Encounter Summary ---
Demographics + + + | Address | [address] | | | [place] [address] | + + + | Home Phone [...] Team Providers + +------+ + | Care Medication Coordinator Name | Role | Phone | + +------+ + | Marta Jenkins MUSEUM EXHIBIT TECHNICIAN | PCP | | + +------+ + Encounter Details +--------+ + + + + | Date | Type | Department | Care Team | Description | +--------+ + + + + | 11/19/ | Documentati | Digestive Health | Clinic, Surgery | | | 2019 | on | [place] [facility] [address] | | | | | | [address] | | | | | | Mailcode: [place] | | | | | | for Health and | | | | | | Healing, [address] | | | | | | [facility] [place] | | | | | | [address] | | | | | | [phone] | | | +--------+ + + + [...]
--- OUTSIDE RECORDS SUMMARY | ~2019-02-26 | XMS | Encounter Summary ---
Demographics + + + | Address | [address] | | | [place] [address] | + + + | Home Phone [...] Providers + +------+ + | Care Professional Services Consultant Name | Role | Phone | [...] as of this encounter Progress Notes Interface, Backer Up In - 08/20/2006 3:01 AM PSTCLINIC DATE: [...] views. Fox Chopra M.D. BETH / SALEEM [id number] / [id number] / [id number] / C: 02/18/2000 jerman Noland M.D. [place], [place] [address] [place] [address], [address] [place], [place] [address]Acqcmvvooaowsz signed by Interface, Backer Up In at 08/20/2006 3:01 AM PSTInterface, Backer Up In - 08/20/2006 3:01 AM PSTCLINIC DATE: [...] from her physical therapist, Rustam Sykes, at [facility] in [place], [place], which indicates that she has been [...] in any additional way at phone number [phone]. PHYSICAL EXAMINATION: Essentially unchanged from previous exams. [...] necessary at this point. Lloyd Garcia M.D. Obstetrical Nurse, Orthopedics and Rehabilitation / [id number] / [id number] / [id number] / cc: Helio Noland MD [address] [place], [place] [address] [place] [address] documented in this encounter Plan of Treatment Not on filedocumented as of this encounter Visit Diagnoses Not on filedocumented in this encounter"
--- OUTSIDE RECORDS SUMMARY | ~2019-02-26 | XMS | Encounter Summary ---
[...] Team Providers + +------+ + | Care Colon And Rectal Surgeon Name | Role | Phone | [...] as of this encounter Progress Notes Interface, Solution Lead In - 06/19/2006 1:01 AM PDT [place] [facility] and [place] [address], [place] [address] FAX Department of Orthopaedics, [facility] [id number] September 16, 2001 Kalyan Wu M.D. Department of Orthopedics and Rehabilitation [facility] RE: SHELBY GALDAMEZ MR #: [id number] DOS: 09/16/2001 Dear Nasir: I am referring [...] contact me directly. Sincerely, Lloyd Garcia M.D. Power Plant Operator Apprentice Orthopedics and Rehabilitation / [id number] / [id number] / [id number] / 58575 C: 10/02/2001 [facility] cc: Helio Mann M.D. P.OJuan Jose [address] [address]Ecxgooobjcbomu signed by Interface, Solution Lead In at 06/19/2006 1: 01 AM PDTdocumented in this encounter Plan of Treatment Not on filedocumented as of this encounter Visit Diagnoses Not on filedocumented in this encounter"
--- OUTSIDE RECORDS SUMMARY | ~2019-02-26 | XMS | Encounter Summary ---
Demographics + + + | Address | [address] | | | [place] [address] | + + + | Home Phone [...] Providers + +------+ + | Care Chief Procurement Officer Name | Role | Phone | [...] this encounter Progress Notes Interface, Branch Associate In - 04/28/2005 10:57 PM PDTClinic [...] not need a refill. Lloyd Garcia M.D. Assembly Adjuster of Orthopedics and Rehabilitation / [id number] / [id number] / [id number] / [id number] cc: Leonel Floyd M.D. [address] [place], [place] [address]Exrafsexdwfsqv signed by Interface, Branch Associate In at 04/28/2005 10:57 PM PDTdocumented in this encounter Plan of Treatment Not on filedocumented as of this encounter Visit Diagnoses Not on filedocumented in this encounter"
--- OUTSIDE RECORDS SUMMARY | ~2019-02-26 | XMS | Encounter Summary ---
Demographics + + + | Address | [address] | | | [place] [address] | + + + | Home Phone [...] Providers + +------+ + | Care Branch Sales And Service Representative Name | Role | Phone [...] as of this encounter Progress Notes Interface, Gore Inserter In - 04/19/2006 3:09 AM PDTCLINIC DATE: [...] questions. Jason Castano M.A. Orthopedics / HS [id number] / [id number] / [id number] / Tdocumented in this encounter Plan of Treatment Not on filedocumented as of this encounter Visit Diagnoses Not on filedocumented in this encounter"
--- OUTSIDE RECORDS SUMMARY | ~2019-02-26 | XMS | Encounter Summary ---
Demographics + + + | Address | [address] | | | [place] [address] | + + + | Home Phone [...] Providers + +------+ + | Care Dining Room Host/Hostess Name | Role | Phone | + [...] | Floor [address] | [facility] | | | | | [facility] | [place] [address] | | | | | Mailcode: L457 | [phone] | | | | | Physicians Terrence | | | | | | [place], [place] | | | | | | [address] | | | | | | [phone] | | | +--------+ + + + [...] CELL | 8.6 | K/cu mm | [facility] | | | COUNT | | | MEDICAL | | | | | | [facility] - | | | | | | [place] | | + + + + + + | RED CELL | 3.88 | M/cu mm | [facility] | | | COUNT | | | MEDICAL | | | | | | [facility] - | | | | | | [place] | | + + + + + + | HEMOGLOBIN | 11.5 (A) | 12.1999 - 15 | [facility] | | | | | g/dL | MEDICAL | | | | | | [facility] - | | | | | | [place] | | + + + + + + | HEMATOCRIT | 33.7 | % | [facility] | | | | | | MEDICAL | | | | | | [facility] - | | | | | | [place] | | + + + + + + | MCV | 87 | fL | [facility] | | | | | | MEDICAL | | | | | | [facility] - | | | | | | [place] | | + + + + + + | MCH | 29.7 | pg | [facility] | | | | | | MEDICAL | | | | | | [facility] - | | | | | | [place] | | + + + + + + | MCHC | 34.1 | g/dL | [facility] | | | | | | MEDICAL | | | | | | [facility] - | | | | | | [place] | | + + + + + + | PLATELET | 369 | K/cu mm | [facility] | | | COUNT | | | MEDICAL | | | | | | [facility] - | | | | | | [place] | | + + + + + + | NEUTROPHIL | 66.6 | % | [facility] | | | % | | | MEDICAL | | | | | | [facility] - | | | | | | [place] | | + + + + + + | LYMPHOCYTE | 23.2 | % | [facility] | | | % | | | MEDICAL | | | | | | [facility] - | | | | | | [place] | | + + + + + + | MONOCYTE % | 6.6 | % | [facility] | | | | | | MEDICAL | | | | | | [facility] - | | | | | | [place] | | + + + + + + | EOS % | 3.1 | % | [facility] | | | | | | MEDICAL | | | | | | [facility] - | | | | | | [place] | | + + + + + + | BASO % | 0.5 | % | [facility] | | | | | | MEDICAL | | | | | | [facility] - | | | | | | [place] | | + + + + + + | RDW | 16.7 | % | [facility] | | | | | | MEDICAL | | | | | | [facility] - | | | | | | [place] | | + + + + + + | MPV | | fL | [facility] | | | | | | MEDICAL | | | | | | [facility] - | | | | | | [place] | | + + + + + + | NEUTROPHIL | 5.7 | K/cu mm | [facility] | | | # | | | MEDICAL | | | | | | [facility] - | | | | | | [place] | | + + + + + + | LYMPHOCYTE | 2.0 | K/cu mm | [facility] | | | # | | | MEDICAL | | | | | | [facility] - | | | | | | [place] | | + + + + + + | MONOCYTE # | 0.6 | K/cu mm | [facility] | | | | | | MEDICAL | | | | | | [facility] - | | | | | | [place] | | + + + + + + | EOS # | 0.3 | K/cu mm | [facility] | | | | | | MEDICAL | | | | | | [facility] - | | | | | | [place] | | + + + + + + | BASO # | | | [facility] | | | | | | MEDICAL | | | | | | [facility] - | | | | | | [place] | | + + + + + + | SEDIMENTATI | 78 | mm/hr | [facility] | | | ON RATE | | [...] | + + + + + | [facility] | [address] | [place] [address] | | | [facility] | | | | + + + + + COMPLETE METABOLIC SET (NA,K,CL,CO2,BUN,CREAT,GLUC,CA,AST,ALT,BILI TOTAL,ALK PHOS,ALB,PROT TOTAL) (11/16/2010 9:41 AM PST) + +---------+ + + + | Component | Value | Ref Range | Performed | Pathologist | | | | | At | Signature | + +---------+ + + + | GLUCOSE, | 112 (A) | 65 - 110 mg/dL | [facility] | | | PLASMA | | | MEDICAL | | | (LAB) | | | CENTER - | | | | | | [place] | | + +---------+ + + + | BUN, PLASMA | 6 | mg/dL | [facility] | | | (LAB) | | | MEDICAL | | | | | | CENTER - | | | | | | [place] | | + +---------+ + + + | CREATININE | 0.4 | mg/dL | [facility] | | | PLASMA | | | MEDICAL | | | (LAB) | | | CENTER - | | | | | | [place] | | + +---------+ + + + | TOTAL | 7.1 | g/dL | [facility] | | | PROTEIN, | | | MEDICAL | | | PLASMA | | | CENTER - | | | (LAB) | | | [place] | | + +---------+ + + + | ALBUMIN, | 3.3 | g/dL | [facility] | | | PLASMA | | | MEDICAL | | | (LAB) | | | CENTER - | | | | | | [place] | | + +---------+ + + + | CALCIUM, | 8.6 | mg/dL | [facility] | | | PLASMA | | | MEDICAL | | | (LAB) | | | CENTER - | | | | | | [place] | | + +---------+ + + + | BILIRUBIN | 0.9 | Transcutaneous | [facility] | | | TOTAL | | Bilirubinometer | MEDICAL | | | | | | CENTER - | | | | | | [place] | | + +---------+ + + + | ALK PHOS | 60 | U/L | [facility] | | | | | | MEDICAL | | | | | | CENTER - | | | | | | [place] | | + +---------+ + + + | AST(SGOT) | 15 | U/L | [facility] | | | | | | MEDICAL | | | | | | CENTER - | | | | | | [place] | | + +---------+ + + + | SODIUM, | 139 | mmol/L | [facility] | | | PLASMA | | | MEDICAL | | | (LAB) | | | CENTER - | | | | | | [place] | | + +---------+ + + + | POTASSIUM, | 4.1 | mmol/L | [facility] | | | PLASMA | | | MEDICAL | | | (LAB) | | | CENTER - | | | | | | [place] | | + +---------+ + + + | CHLORIDE, | 107 | mmol/L | [facility] | | | PLASMA | | | MEDICAL | | | (LAB) | | | CENTER - | | | | | | [place] | | + +---------+ + + + | TOTAL CO2, | 26 | mmol/L | [facility] | | | PLASMA | | | MEDICAL | | | (LAB) | | | CENTER - | | | | | | [place] | | + +---------+ + + + | ALT (SGPT) | 11 | U/L | [facility] | | | | | | MEDICAL | | | | | | CENTER - | | | | | | [place] | | + +---------+ + + + | ANION GAP | 10 | | [facility] | | | | | | MEDICAL | | | | | | CENTER - | | | | | | [place] | | + +---------+ + + + | OSMOLALITY, | 286 | | [facility] | | | CALCULATED | | | [...] | + + + + + | [facility] | [address] [facility] | [place] [address] | | | [facility] | | | | + + + + + documented in this encounter Visit Diagnoses Not on filedocumented in this encounter"
--- OUTSIDE RECORDS SUMMARY | ~2019-02-26 | XMS | Encounter Summary ---
Demographics + + + | Address | [address] | | | [place] [address] | + + + | Home Phone [...] Author + + + | Author | [facility] | + + + | Organization | [facility] | + + + | [...] Team Providers + +------+ + | Care Crane Hooker Name | Role | Phone | + +------+ + PCP | Unavailable | + +------+ + Encounter Details +--------+ + + + + | Date | Type | Department | Care Team | Description | +--------+ + + + + | 06/11/ | Results | Orthopaedics at | Llyod Garcia MD | | | 2005 | Only | [facility] [address] | | | | | | [facility] | | | | | | Mailcode: [id number] | | | | | | Physician'yokasta Ocampo | | | | | | [place], [place] | | | | | | [address] | | | | | | [phone] | | | +--------+ + + + [...]
--- OUTSIDE RECORDS SUMMARY | ~2019-02-26 | XMS | Encounter Summary ---
Demographics + + + | Address | [address] | | | [place] [address] | + + + | Home Phone [...] + +------+ + | Care Manager Application Development Name | Role | Phone | [...] Lira | | | | | | [facility] | | | | | | Mailcode: [id number] | | | | | | Physician'yokasta Ocampo | | | | | | [place], [place] | | | | | | [address] | | | | | | [phone] | | | +--------+ + + + [...] + + + | [facility] | [address] | [place] [address] | | | LABORATORY | | | [...] + + + + + | [facility] DEPARTMENT OF | [address] | [place] [address] | | | PATHOLOGY | [address] | | | + + + + + | [facility] DEPARTMENT OF | [address] | [place] [address] | | | PATHOLOGY | [address] [...] + + + + + | [facility] DEPARTMENT OF | [address] | [place] [address] | | | PATHOLOGY | [address] | | | + + + + + | [facility] DEPARTMENT OF | [address] [facility] | [place] [address] | | | PATHOLOGY | [address] [...] [place] DEPARTMENT OF | [address] [facility] | [place] [address] | | | PATHOLOGY | [address] | | | + + + + + | [facility] DEPARTMENT OF | [address] [facility] | [place] [address] | | | PATHOLOGY | [address] [...] Marybeth, | | | | | | Rubber Press Operator, | | | | | | [...] | + + + + + | [facility] | [address] | [place] [address] | | | LABORATORY | | | [...] + + + + + | [facility] DEPARTMENT | [address] [facility] | [place] [address] | | | PATHOLOGY | [address] | | | + + + + + | [facility] | [address] [place] [address] | [place] [address] | | | PATHOLOGY | [address] [...] DEPARTMENT OF | [address] | [place] [address] | | | PATHOLOGY | [address] | | | + + + + + | [facility] DEPARTMENT OF | [address] | [place] [address] | | | PATHOLOGY | [address] [...] | + + + + + | [facility] | [address] [facility] | [place] [address] | | | PATHOLOGY | [address] | | | + + + + + | [facility] | [facility] | [place] [address] | | | PATHOLOGY | [address] [...] + + + | [facility] | [address] | [place] [address] | | | LABORATORY | | | [...] | + + + + + | [facility] | [address] | [place] [address] | | | PATHOLOGY | [address] | | | + + + + + | [facility] | [address] | [place] [address] | | | PATHOLOGY | [address] [...] + + + + + | [facility] DEPARTMENT OF | [address] [facility] | [place] [address] | | | PATHOLOGY | [address] | | | + + + + + | [facility] DEPARTMENT OF | [address] | [place] [address] | | | PATHOLOGY | [address] [...] | + + + + + | [facility] | [address] | [place] [address] | | | PATHOLOGY | [address] | | | + + + + + | [facility] | [address] | [place] [address] | | | PATHOLOGY | [address] [...] + + + | [facility] | [address] | [place] [address] | | | LABORATORY | | | [...] DEPARTMENT OF | [address] | [place] [address] | | | PATHOLOGY | [address] | | | + + + + + | [facility] DEPARTMENT OF | [address] | [place] [address] | | | PATHOLOGY | [address] [...] 11.0 | 4.4 - 11.0 K/cu | [facility] | | | COUNT | | mm [...] | + + + + + | [facility] | [facility] | [place] [address] | | | PATHOLOGY | [address] | | | + + + + + | [facility] DEPARTMENT OF | [facility] | [place] [address] | | | PATHOLOGY | [address] [...] PRIMARY | | | | | | EQUIPMENT MAINT TECH: Joao Wilde | | | | | [...] | | | | | aspirated. A12 Beninese | | | | | | multi [...] + +---------+ + + | [facility] DEPARTMENT | | | | [...] + + + | [facility] | [address] | [place] [address] | | | LABORATORY | | | [...] DEPARTMENT OF | [address] | [place] [address] | | | PATHOLOGY | [address] | | | + + + + + | [facility] DEPARTMENT OF | [address] | [place] [address] | | | PATHOLOGY | [address] [...] + + + + + | [facility] DEPARTMENT OF | [address] [facility] | [place] [address] | | | PATHOLOGY | [address] | | | + + + + + | [facility] DEPARTMENT OF | [facility] | [place] [address] | | | PATHOLOGY | [address] [...] | + + + + + | [facility] | [address] | [place] [address] | | | PATHOLOGY | [address] | | | + + + + + | [facility] DEPARTMENT OF | [address] | [place] [address] | | | PATHOLOGY | [address] [...] | + + + + + | [facility] | [address] | [place] [address] | | | PATHOLOGY | [address] | | | + + + + + | [facility] | [facility] | [place] [address] | | | PATHOLOGY | [address] [...] + +---------+ + + | [facility] DEPARTMENT OF | | | [...] + +---------+ + + | [facility] DEPARTMENT OF | | | [...] [place] DEPARTMENT OF | [address] [facility] | [place] [address] | | | PATHOLOGY | [address] | | | + + + + + | [facility] DEPARTMENT OF | [address] [facility] | [facility] [address] | | | PATHOLOGY | [address] [...] + + + + + | [facility] DEPARTMENT | [address] [facility] | [place] [address] | | | PATHOLOGY | [address] | | | + + + + + | [facility] DEPARTMENT OF | [address] [facility] | [place] [address] | | | PATHOLOGY | [address] [...] | + + + + + | [facility] | [address] | [place] [address] | | | PATHOLOGY | [address] | | | + + + + + | [facility] | [address] [facility] | [place] [address] | | | PATHOLOGY | [address] [...] | + + + + + | [facility] | [address] | [place] [address] | | | LABORATORY | | | | + + + + + documented in this encounter Visit Diagnoses Not on filedocumented in this encounter"
--- OUTSIDE RECORDS SUMMARY | ~2019-02-26 | XMS | Encounter Summary ---
Demographics + + + | Address | [address] | | | [place] [address] | + + + | Home Phone [...] Team Providers + +------+ + | Care Sustainability Consultant Name | Role | Phone | + +------+ + | Marta Jenkins BLOOD BANK CREDIT CLERK | PCP | | + +------+ + Encounter Details +--------+ + + + + | Date | Type | Department | Care Team | Description | +--------+ + + + + | 11/02/ | Ancillary | Registration [address] | | | | 2005 | Registratio | [address] | | | | | n | [facility] Mailcode: | | | | | | RPB07 [place], [place] | | | | | | [address] | | | | | | [phone] | | | +--------+ + + + [...]
--- OUTSIDE RECORDS SUMMARY | ~2019-02-26 | XMS | Encounter Summary ---
Demographics + + + | Address | [address] | | | [place] [address] | + + + | Home Phone [...] Providers + +------+ + | Care Hand Suture Winder Name | Role | Phone | [...] | Transcriptions | + + | Interface, Sales Engineer [employer] In - 09/19/2005 9:05 PM PST Date: | | 09/29/2003Attending Surgeon: Lloyd Garcia M.D.Socket Puller(s): | | Benson Boone M.D.Preoperative Diagnosis:Right greater [...] Boone M.D.Lloyd | | Sierra Garcia.RT / [id number] / [id number] / [id number] / [id number]: 10/21/2003T: 10/22/2003 | |where she had a [...] | | | |RT / HS | |[id number] / [id number] / [id number] / [id number] | | | | | + + documented in this encounter Visit Diagnoses Not on filedocumented in this encounter"
--- OUTSIDE RECORDS SUMMARY | ~2019-02-26 | XMS | Encounter Summary ---
Demographics + + + | Address | [address] | | | [place] [address] | + + + | Home Phone [...] Team Providers + +------+ + | Care Rfid Strategist Name | Role | Phone | + [...] | | and | [address] | [address] | | | | | inflammatory | [address] | [facility] | | | | | reaction | [address] | [place], [place] | | | | | due to | [place], [place] | [address] | | | | | unspecified | [address] | Phone: | | | | | device, | Phone: | [phone] | | | | | implant, and | [phone] | Fax: | | | | | graft | Fax: | [phone] | | | | | | [phone] | | +--------+--------+ + + + + [...] | Floor [address] | [facility] [place], | (Primary Dx) | | | | [facility] | [place] [address] | | | | | Mailcode: [id number] | [phone] | | | | | Physicians [address] | | | | | | [place], [place] | | | | | | [address] | | | | | | [phone] | | | +--------+---------+ + + + [...] FOLLOW UP Primary [place]: [place] [address] Ms. Galdamez presents to Infectious Diseases Clinic [...] 18, a nd was therefore admitted to [facility] out of concern for R [...] discharged in stable condition on 10/22/2010 to [facility] with OPAT & Orthopedic follow-up planned in 2 weeks ti co. Interim History obtained 11/17/2010: Ms. Galdamez presents [...] as well as in shoes and socks. [place]-3 Fatty Acids-Vitamin E (FISH OIL) 1,000 mg [...] She will travel to her PCP in [place] in 1 weeks time for another PICC [...] a nd follow-up planning. Carolina Putnam PA-C [facility] Department of Infectious Disease Outpatient IV Antibiotic Therapy Clinic (OPAT) Pager ID: [phone] [facility]. Mail Code B114 [place] [address] documented in th is encounter Plan of [...] + + | [facility] | [address] | [place] [address] | | | PATHOLOGY | [address] [...] [facility] | REGIONAL | | [address] | LABORATORY | | [place] [address] | | + + + + + + + + | Performing | Address | City/State/Zipcode | Phone Number | | Organization | | | | + + + + + | [facility] | [address] | [place] [address] | | | LABORATORY | | | [...] + + | [facility] | [address] [facility] | [place] [address] | | | PATHOLOGY | [address] [...] | | | DEPARTMENT | | | [place] | | | OF | | | [...] DEPARTMENT OF | [address] | [place] [address] | | | PATHOLOGY | [address] [...] [facility] | [address] | [place] [address] | | | PATHOLOGY | [address] | | | + + + + + documented in this encounter Visit Diagnoses + + | Diagnosis | + + | 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
--- OUTSIDE RECORDS SUMMARY | ~2019-02-26 | XMS | Encounter Summary ---
Demographics + + + | Address | [address] | | | [place] [address] | + + + | Home Phone [...] Providers + +------+ + | Care Nurse Practitioner Per Diem Name | Role | Phone | + [...] | | Surgery -Hand | [address] [place] | | | | | Surgery [address] | [place] [address] | | | | | [address] | | | | | | Road Mailcode: | | | | | | [id number] Physicians | | | | | | [place] | | | | | | [place] [address] | | | | | | [phone] | | | +--------+ + + + [...] + + + + | PRODUCT | [id number] | | [facility] | | | UNIT [...] | + + + + + | [facility] DEPARTMENT OF | [address] | [place] [address] | | | PATHOLOGY | [address] | | | + + + + + | [facility] DEPARTMENT OF | [address] | [place] [address] | | | PATHOLOGY | [address] [...] + + + + | PRODUCT | [id number] | | [facility] | | | UNIT [...] + | [facility] DEPARTMENT OF | [address] [facility] | [place] [address] | | | PATHOLOGY | [address] | | | + + + + + | [facility] DEPARTMENT OF | [address] [facility] | [place] [address] | | | PATHOLOGY | [address] [...] | + + + + + | [facility] | [address] | [place] [address] | | | PATHOLOGY | [address] | | | + + + + + | [facility] | [address] | [place] [address] | | | PATHOLOGY | [address] | | | + + + + + documented in this encounter Visit Diagnoses Not on filedocumented in this encounter"
--- OUTSIDE RECORDS SUMMARY | ~2019-02-26 | XMS | Encounter Summary ---
Demographics + + + | Address | [address] | | | [place] [address] | + + + | Home Phone [...] Team Providers + +------+ + | Care Iuss Master Analyst Name | Role | Phone | [...] [address] | | | | | [facility] | [facility], | | | | | Mailcode: [id number] | [place] [address] | | | | | Physician's Terrence | | | | | | [place], [place] | | | | | | [address] | | | | | | [phone] | | | +--------+ + + + [...]
--- OUTSIDE RECORDS SUMMARY | ~2019-02-26 | XMS | Encounter Summary ---
Demographics + + + | Address | [address] | | | [place] [address] | + + + | Home Phone [...] Providers + +------+ + | Care Tube Rebuilder Name | Role | Phone | + [...] | | | | | and | [address] | [address] | | | | | inflammatory | [address] | [address] | | | | | reaction | [address] | [place], [place] | | | | | due to | [place], [place] | [address] | | | | | unspecified | [address] | Phone: | | | | | device, | Phone: | [phone] | | | | | implant, and | [phone] | Fax: | | | | | graft | Fax: | [phone] | | | | | | [phone] | | +--------+--------+ + + + + [...] | [facility] 4th Floor [address] | reaction due to | | | | [address] | [place] [address] | internal joint | | | | Road Mailcode: | [phone] | prosthesis (HCC) | | | | [address] Physicians | | (Primary Dx) | | | | [address] | | | | | | [place], [place] | | | | | | [address] | | | | | | [phone] | | | +--------+---------+ + + + [...] CLINIC FOLLOW UP Referrring Physician: TYRONE COLBY [facility] Orthopedics [address] [place] [address] Primary Care Physician: Carlos S [facility] [place] [address] Ms. Galdamez presents to Infectious Diseases Clinic [...] procedure. Indications : Staphylococcus Aureus Joint Infection [place]-3 Fatty Acids-Vitamin E (FISH OIL) 1,000 mg [...] above discussion. ALBINO TERESA MD INFECTIOUS DISEASES [address] [place] [address] Mailcode: L608 [address] [address] documented in this e ncounter [...]
--- OUTSIDE RECORDS SUMMARY | ~2019-02-26 | XMS | Encounter Summary ---
Demographics + + + | Address | [address] | | | [place] [address] | + + + | Home Phone [...] Team Providers + +------+ + | Care Traveler Changer Name | Role | Phone | [...] [address] | | | | | | [facility] | | | | | | Mailcode: [id number] | | | | | | Physician'yokasta Ocampo | | | | | | [place], [place] | | | | | | [address] | | | | | | [phone] | | | +--------+ + + + [...] of | | | | | | Zlli-Vgonisumvjh-ydzbwlf | | | | | | jose. [...] | | + +---------+ + + | [facility] DEPARTMENT OF | | | [...] | | + +---------+ + + | [facility] DEPARTMENT OF | | | [...] | | | | VIEWS | MOSHE FLWOERS | | | | | | M.D.-Radiologist [...] + + | Performing | Address | City[facility] | Phone Number | | Organization | | | | + +---------+ + + | [facility] DEPARTMENT OF | | | [...] | | + +---------+ + + | [facility] DEPARTMENT OF | | | | | RADIOLOGY | | | | + +---------+ + + documented in this encounter Visit Diagnoses Not on filedocumented in this encounter
--- OUTSIDE RECORDS SUMMARY | ~2019-02-26 | XMS | Encounter Summary ---
Demographics + + + | Address | [address] | | | [place] [address] | + + + | Home Phone | | + + + | Preferred Language | Unknown | + + + | Marital Status | Single | + + + | Pentecostal Affiliation | Unknown | + + + | Race | Unknown | + + + | Ethnic Group | Unknown | + + + Author + + + | Author | [employer] [facility] | + + + | Organization | [facility] | + + + | Address | Unknown | + + + | Phone | Unavailable | + + + Support + + +---------+ + | Name | Relationship | Address | Phone | + + +---------+ + | Kristel Teresa | ECON | Unknown | | + + +---------+ + Care Team Providers + +------+ + | Care Track Service Worker Name | Role | Phone [...] + + | 12/11/ | Telephone | [facility] | Xiang Sepulveda, | Medication Problem | | 2019 | | [facility] | DO [address] | (Change on Rx refill | | | | [address] | [place], [place] | order.) | | | | [place], [place] | [address] | | | | | [address] | | | | | | [phone] | | | +--------+ + + + [...] [place] | | | | | | [address] | | | | | | | | +--------+---------+ + + + as of this encounter Visit Diagnoses Not on filein this encounter"
--- OUTSIDE RECORDS SUMMARY | ~2019-02-26 | XMS | Encounter Summary ---
Demographics + + + | Address | [address] | | | [place] [address] | + + + | Home Phone [...] Team Providers + +------+ + | Care Laundry Sorter Name | Role | Phone | [...] | Transcriptions | + + | Interface, Inbound Call Center Agent In - 02/27/2006 3:05 AM PDT Date: | | 09/27/2003Attending Surgeon: Lloyd Garcia M.D.Credit Representative(s): | | Benson Boone M.D.Preoperative Diagnosis:Right hip [...] Boone M.D.Lloyd Garcia M.D.RT / | | [id number] / [id number] / [id number] / [id number]: 09/27/2003T: 09/28/2003 | |( ) which was [...] | | | |RT / HS | |[id number] / [id number] / [id number] / 82881 | | | | | + + OPERATION RECORD (09/25/2003) + + | Transcriptions | + + | Interface, Inbound Call Center Agent In - 02/27/2006 3:05 AM PDT Date: | | 09/25/2003Attending Surgeon: Lloyd Garcia M.D.Credit Representative(s): | | MD Fox Gold, | | [...] | [facility]duction [facility] | | [...] thenbrought back to Operating Room #7 at [facility] | | [place].General endotracheal anesthesia was administered. Antibiotics werewithheld | [...] | procedure well without apparent complications.Lloyd Garcia M.D.Oracle Database Consultant, | | Orthopedics and Rehabilitation / [id number] / [id number] / [id number] / [id number]: 09/25/2003T: | | 09/26/2003 | |plate and [...] |brought back to Operating Room #7 at [facility]. | |General endotracheal anesthesia was [...] | | | |Lloyd Garcia M.D. | |Oracle Database Consultant, Orthopedics and Rehabilitation | | | | / | |[id number] / [id number] / [id number] / [id number] | | | | | + + documented in this encounter Visit Diagnoses Not on filedocumented in this encounter"
--- OUTSIDE RECORDS SUMMARY | ~2019-02-26 | XMS | Encounter Summary ---
Demographics + + + | Address | [address] | | | [place] [address] | + + + | Home Phone [...] Team Providers + +------+ + | Care Optometric Coordinator Name | Role | Phone | + +------+ + PCP | Unavailable | + +------+ + Encounter Details +--------+ + + + + | Date | Type | Department | Care Team | Description | +--------+ + + + + | 11/03/ | Results | Plastic and | Marguerite Araujo, | | | 2003 | Only | Reconstructive | [address] | | | | | Surgery [address] | [place], [place] | | | | | [address] | [address] | | | | | Road Mailcode: | [phone] | | | | | [address] Physicians | | | | | | [place], | | | | | | [place] [address] | | | | | | [phone] | | | +--------+ + + + [...] | + +---------+ + + | [facility] DEPARTMENT OF | | | | [...] + + + + + | [facility] | [address] | [place] [address] | | | LABORATORY | | | [...] | [facility] | [address] | [place] [address] | | | PATHOLOGY | [address] | | | + + + + + | [facility] | [facility] | [place] [address] | | | PATHOLOGY | [address] [...] DEPARTMENT OF | [address] | [place] [address] | | | PATHOLOGY | [address] | | | + + + + + | [facility] DEPARTMENT OF | [address] | [place] [address] | | | PATHOLOGY | [address] [...] [facility] | [address] | [place] [address] | | | PATHOLOGY | [address] | | | + + + + + | [facility] DEPARTMENT OF | [address] | [place] [address] | | | PATHOLOGY | [address] | | | + + + + + documented in this encounter Visit Diagnoses Not on filedocumented in this encounter
--- OUTSIDE RECORDS SUMMARY | ~2019-02-26 | XMS | Encounter Summary ---
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 She is able to ambulate [...] adduction which is not painful. X-rays show dgyszifl-tv-tbepqx right hip DJD with joint space narrowing asymmetrically and large marginal osteocytes, most notably superiorly, posteriorly, as well as inferiorly and less so anteriorly. Right knee x-rays show raih-of-bdmskmpp degenerative changes. No radiopaque loose bodies. AP, lateral, and oblique views of the lumbosacral spine show rklp-ar-xedikjxm facet arthrosis at L3-L4, L4-L5, and L5-S1, right greater than left. Disk spaces are well maintained. There is no spondylolisthesis or spondylolysis. ASSESSMENT: Lfcbjawz-mb-dnwqum hypotrophic osteoarthritis of the right hip; ctrt-vt-rabiqjjh degenerative changes of the right knee; and udcm-lq-etfnetns, right greater than left, lumbar and lumbosacral [...] the right hip. Lloyd Garcia M.D. / [id number] / [id number] / [id number] / [id number] C: 06/12/2000 otilia cc: JILLIAN TODD M.D. PJuan JoseOJuan Jose [place], [place] [address]Axdpzijgndqkrq signed by Interface, Drum Dyeing Machine Operator In at 08/10/2006 3: 02 AM PSTdocumented in this encounter Plan of Treatment Not on filedocumented as of this encounter Visit Diagnoses Not on filedocumented in this encounter"
--- OUTSIDE RECORDS SUMMARY | ~2019-02-26 | XMS | Encounter Summary ---
Demographics + + + | Address | [address] | | | [place] [address] | + + + | Home Phone [...] + + | Author | [facility] | + + + | Organization | [facility] | + + + | Address | [...] | 2010 | Encounter | Radiology at [facility] | | | | | | [address] | | | | | | [facility] | | | | | | Mailcode: PV450 | | | | | | [address] | | | | | | [place], [place] | | | | | | [address] | | | | | | [phone] | | | +--------+ + + + [...] + + + +---------+ + + | [place]-[address] Fatty | Take by mouth. | | [...]
--- OUTSIDE RECORDS SUMMARY | ~2019-02-26 | XMS | Encounter Summary ---
Demographics + + + | Address | [address] | | | [place] [address] | + + + | Home Phone [...]
--- OUTSIDE RECORDS SUMMARY | ~2019-02-26 | XMS | Encounter Summary ---
Demographics + + + | Address | [address] | | | [place] [address] | + + + | Home Phone [...] Providers + +------+ + | Care Optical Glass Sawyer Name | Role | Phone | [...] hip; Hip replacement | | | | [facility] | | | | | | Mailcode: PV430 | | | | | | Pat Ocampo | | | | | | [place], [place] | | | | | | [address] | | | | | | [phone] | | | +--------+---------+ + + + [...] fairly well controlled at this point with Fisk. She has been wbat and is overall [...]
--- OUTSIDE RECORDS SUMMARY | ~2019-02-26 | XMS | Encounter Summary ---
Demographics + + + | Address | [address] | | | [place] [address] | + + + | Home Phone [...] Providers + +------+ + | Care Combination Building Inspector Name | Role | Phone | [...] as of this encounter Progress Notes Interface, Protection Officer In - 04/28/2005 10:57 PM PDTClinic Date: [...] resolved, and she attributes to eating a [place] pork and vegetable lap dish called Vertical Acuity. Physical Examination General: Shelby is in good [...] drain is in place. Lloyd Garcia M.D. [facility] / SALEEM [id number] / [id number] / [id number] / cc: Everett Guillen M.D. [address] [place] [id number] signed by Interface, Protection Officer In at 04/28/2005 10:57 PM PDTdocumented in this encounter Plan of Treatment Not on filedocumented as of this encounter Visit Diagnoses Not on filedocumented in this encounter"
--- OUTSIDE RECORDS SUMMARY | ~2019-02-26 | XMS | Encounter Summary ---
Demographics + + + | Address | [address] | | | [place] [address] | + + + | Home Phone [...] Team Providers + +------+ + | Care Gum Rolling Machine Operator Name | Role | Phone [...] | Transcriptions | + + | Interface, Professor Of Surgery In - 09/19/2005 9:05 PM PST Date: | | 10/08/2003Attending Surgeon: Marguerite Araujo M.D.Oncology Physician Assistant(s): | | Stas Menjivar M.D.Preoperative Diagnosis(es):Right hip [...] recoveryroom in stable condition.Marguerite Araujo, | | [facility] / [id number] / [id number] / [id number] / T: 10/08/2003 | |a clean granulating [...] | | | |JEMarcus / [place] | |[id number] / [id number] / 66102 / | | | | | + + OPERATION RECORD (10/08/2003) + + | Transcriptions | + + | Interface, Professor Of Surgery In - 09/19/2005 9:05 PM PST Date: | | 10/08/2003Attending Surgeon: Lloyd Garcia M.D.Oncology Physician Assistant(s): | | Benson Boone M.D. Stas Menjivar, [...] [facility] with the hipsflexed and abduction pillow in place and | | brought from the Operating Room tothe Recovery Room in stable and satisfactory condition | | having tolerated theprocedure well without apparent complication. All counts were | | reportedcorrect prior to leaving the Operating Room. There were no apparenthypotensive | | episodes or other anesthetic difficulties.Lloyd Garcia M.D.Capacity Manager, | | Orthopedics and Rehabilitation / [id number] / [id number] / [id number] / T: | | 10/08/2003 | |tube [...] | | | |Lloyd Garcia M.D. | |Capacity Manager, Orthopedics and Rehabilitation | | | | / | |[id number] / [id number] / [id number] / | | | | | + + OPERATION RECORD (10/05/2003) + + | Transcriptions | + + | Interface, Professor Of Surgery In - 09/19/2005 9:05 PM PST Date: | | 10/05/2003Attending Surgeon: Lloyd Garcia M.D.Oncology Physician Assistant(s): | | Benson Boone M.D.Preoperative Diagnosis(es):Right hip [...] | case.Benson Boone M.D.Lloyd Garcia M.D.RT / [id number] / [id number] / [id number] / [id number]: | | 10/05/2003T: 10/05/2003 | |flap for [...] | | | |RT / HS | |[id number] / [id number] / 93784 / 52283 | | | | | + + documented in this encounter Visit Diagnoses Not on filedocumented in this encounter"
--- OUTSIDE RECORDS SUMMARY | ~2019-02-26 | XMS | Encounter Summary ---
Demographics + + + | Address | [address] | | | [place] [address] | + + + | Home Phone [...] Team Providers + +------+ + | Care Slitting Machine Feeder Name | Role | Phone | [...] | | | 2010 | Only | [address] [facility] | [phone] | | | | | [facility] | | | | | | [place], [place] | | | | | | [address] | | | +--------+ + + + [...] + + | [facility] | [address] | [place], [place] | | | CARDIOLOGY | [address] | [address] | | + + + + + documented in this encounter Visit Diagnoses Not on filedocumented in this encounter"
--- OUTSIDE RECORDS SUMMARY | ~2019-02-26 | XMS | Encounter Summary ---
Demographics + + + | Address | [address] | | | [place] [address] | + + + | Home Phone [...] Providers + +------+ + | Care Internal Control Manager Name | Role | Phone | [...] [address] | [address] | (documentation); | | | | [facility] | [facility] | Other (documentation | | | | Mailcode: PV430 | [place], [place] | not done yet | | | | Physician's [place] | [address] | 07-18.) | | | | [place], [place] | [phone] | | | | | [address] | | | | | | [phone] | | | +--------+ + + + [...]
--- OUTSIDE RECORDS SUMMARY | ~2019-02-26 | XMS | Encounter Summary ---
Demographics + + + | Address | [address] | | | [place] [address] | + + + | Home Phone [...] Team Providers + +------+ + | Care Rejected Items Clerk Name | Role | Phone | [...] | | | | | | [place], | | | | | | [place] [address] | | | | | | [phone] | | | +--------+ + + + [...]
--- OUTSIDE RECORDS SUMMARY | ~2019-02-26 | XMS | Encounter Summary ---
Demographics + + + | Address | [address] | | | [place] [address] | + + + | Home Phone [...] Team Providers + +------+ + | Care Crm Dynamics Developer Name | Role | Phone | [...] [place] | | | | | | [facility] and | | | | | | Counseling [address] | | | | | | [address] [place], | | | | | | [place] [address] | | | | | | [phone] | | | | | | | [...] 09/25/2003 | | | | | | [id number] hours | | | | | | [...] | + +---------+ + + | [facility] DEPARTMENT OF | | | | | [...] + + + | [facility] | [address] | [place] [address] | | | LABORATORY | | | [...] | [place] DEPARTMENT OF | [address] [facility] | [place] [address] | | | PATHOLOGY | [address] | | | + + + + + | [facility] DEPARTMENT OF | [address] [facility] | [place] [address] | | | PATHOLOGY | [address] [...] + + + + + | [facility] | [address] [facility] | [place] [address] | | | PATHOLOGY | [address] | | | + + + + + | [facility] | [address] [facility] | [place] [address] | | | PATHOLOGY | [address] [...] + + + + + | [facility] | [address] | [place] [address] | | | PATHOLOGY | [address] | | | + + + + + | [facility] | [address] | [place] [address] | | | PATHOLOGY | [address] | | | + + + + + documented in this encounter Visit Diagnoses Not on filedocumented in this encounter"
--- OUTSIDE RECORDS SUMMARY | ~2019-02-26 | XMS | Encounter Summary ---
Demographics + + + | Address | [address] | | | [place] [address] | + + + | Home Phone [...] Providers + +------+ + | Care Copy Writer Name | Role | Phone | + +------+ + | Marta Jenkins FAMILY PROGRAM SPECIALIST | PCP | | + +------+ [...] Roxann Cadet Mailcode: | Roxann Ayala [place], | | | | | [address] [place], [place] | [place] [address] | | | | | [address] | | | | | | [phone] | | | +--------+ + + + [...]
--- OUTSIDE RECORDS SUMMARY | ~2019-02-26 | XMS | Encounter Summary ---
Demographics + + + | Address | [address] | | | [place] [address] | + + + | Home Phone [...] Team Providers + +------+ + | Care Orthotics Prosthetics Technician Name | Role | Phone | [...] [address] | [facility] | | | | | [facility] | [place] [address] | | | | | Mailcode: L457 | [phone] | | | | | Physicians [address] | | | | | | [place], [place] | | | | | | [address] | | | | | | [phone] | | | +--------+ + + + [...]
--- OUTSIDE RECORDS SUMMARY | ~2019-02-26 | XMS | Encounter Summary ---
Demographics + + + | Address | [address] | | | [place] [address] | + + + | Home Phone [...] Team Providers + +------+ + | Care Banquet Lead Name | Role | Phone | + +------+ + | Marta Jenkins SKIING TEACHER | PCP | | + +------+ + Encounter Details +--------+ + + + + | Date | Type | Department | Care Team | Description | +--------+ + + + + | 11/02/ | Ancillary | Registration [address] | | | | 2005 | Registratio | Akil Bergman | | | | | n | [facility] Mailcode: | | | | | | [address] [place], [place] | | | | | | [address] | | | | | | [phone] | | | +--------+ + + + [...]
--- OUTSIDE RECORDS SUMMARY | ~2019-02-26 | XMS | Encounter Summary ---
Demographics + + + | Address | [address] | | | [place] [address] | + + + | Home Phone [...] Team Providers + +------+ + | Care Secondary School Registrar Name | Role | Phone | + [...]
--- OUTSIDE RECORDS SUMMARY | ~2019-02-26 | XMS | Encounter Summary ---
Demographics + + + | Address | [address] | | | [place] [address] | + + + | Home Phone [...] Team Providers + +------+ + | Care Neck Cutter Name | Role | Phone | + +------+ + PCP | Unavailable | + +------+ + Encounter Details +--------+ + + + + | Date | Type | Department | Care Team | Description | +--------+ + + + + | 10/05/ | Results | Orthopaedics at | lLoyd Garcia MD | | | 2002 | Only | [facility] [address] | | | | | | [facility] | | | | | | Mailcode: PV430 | | | | | | Physician'yokasta Ocampo | | | | | | [place], [place] | | | | | | [address] | | | | | | [phone] | | | +--------+ + + + [...]
--- OUTSIDE RECORDS SUMMARY | ~2019-02-26 | XMS | Encounter Summary ---
Demographics + + + | Address | [address] | | | [place] [address] | + + + | Home Phone [...] + +------+ + | Care Rail Car Painter/Sandblaster Name | Role | Phone | + [...] as of this encounter Discharge Summaries Interface, Marshmallow Machine Operator In - 03/06/2006 1:10 AM [...] time of discharge. She initially had a MECHANICAL MANAGER that was weaned off as well [...]
--- OUTSIDE RECORDS SUMMARY | ~2019-02-26 | XMS | Encounter Summary ---
Demographics + + + | Address | [address] | | | [place] [address] | + + + | Home Phone [...] + +------+ + | Care Emergency Department Coordinator Name | Role | Phone | [...] | | | | | [address] | | | | | | | [address] | | | | | | | 2SE[address] | | | | | | | [place] | | | | | | | PARION | | | | | | | (MNP/OLD [facility]) | | | | | | | [place], | | | | | | | [place] [address] | +--------+--------+ + + + + Encounter Details +--------+ + + + + | Date | Type | Department | Care Team | Description | +--------+ + + + + | 09/06/ | Hospital | [facility] [address] | Tyrone Colby MD | | | 2007 - | Encounter | [address] | [address] [facility] | | | | | 2SE/UHN85 [place] | [address] | | | 09/09/ | | [place] (MNP/OLD | [place], [place] | | | 2007 | | [facility]) [place], [place] | [address] | | | | | [address] | [phone] | | | | | | | [...] #3. Radiation oncology team was consulted and [facility] administered a single radiation treatment as [...] hip. 0. Needs continued PT/OT at [facility] 1. You may remove dressing 3 days after your surgery and OK for shower thereafter as long a s the incision is not draining. Sponge bath until dressings off. No soaking in tub, pool, et c. If there is drainage after [address] new guaze on the incision and call the Orthopaedi c clinic [phone]. 2. Continue to take Aspirin 325mg twice a day for a total of 6 weeks. Stop if you have stom ach upset or blood in your stool. Let your surgeon know if you have had GI bleeding in the p ast after taking Aspirin or NSAID's. 3. DO NOT let anyone start you on Antibiotics if they suspect your wound is infected. Call consumer relations specialist [facility] Orthopaedist first. Call [phone] for daytime and weekdays, or [phone] for nights and weekends. If you have [...] Dr. Colby in 2 wks. Please call [phone] now to confirm appointment. Follow Up Tests: (Tests at [facility] must be entered into Epic) none Condition On Discharge: Good Discharge Medications: [...] LAB follow-up) 0. Needs continued PT/OT at [facility] 1. You may remove dressing 3 days after your surgery and OK for shower thereafter as long a s the incision is not draining. Sponge bath until dressings off. No soaking in tub, pool, et c. If there is drainage after [address] new guaze on the incision and call the Orthopaedi c clinic [phone]. 2. Continue to take Aspirin 325mg twice a day for a total of 6 weeks. Stop if you have stom ach upset or blood in your stool. Let your surgeon know if you have had GI bleeding in the p ast after taking Aspirin or NSAID's. 3. DO NOT let anyone start you on Antibiotics if they suspect your wound is infected. Call consumer relations specialist [facility] Orthopaedist first. Call [phone] for daytime and weekdays, or [phone] for nights and weekends. If you have [...] Dr. Colby in 2 wks. Please call [phone] now to confirm appointment. Follow Up Tests: (Tests at [facility] must be entered into [facility]) none Condition On Discharge: Good Discharge [...] Faculty - 8 12:00 AM Shelby Thompson [id number] [facility] REC NUMBER: [id number] NAME : Shelby Galdamez DATE : 1960 Admit Date: 09/06/2008 Discharge Date: 09/09/2008 PHYSICIAN'S REQUEST FOR HOME HEALTH SERVICES Relevant History: Location to receive services if other than home: Allergies: Height: Weight: Ordering Physician: [address] [facility] [address] [place] [address] Physician to follow for ongoing home health orders: PCP Name: PCP Phone: Discharge Need(s): 1. Jail Facility Discharge Vendor: [facility] Discharge Suggested First Visit/Delivery Date: Discharge Service/Equipment: 2. Transportation Discharge Vendor: Medicaid - [place] Discharge Suggested First Visit/Delivery Date: Discharge Service/Equipment: stretcher 12:30pm Barrel Bridge Assembler: Tr Rosales - 09/08/2008 2:22 PM PSTRADIATION [...] as able . Tasha Harding OTR//L Pager [phone] Tyrone Haney - 2007 7:55 AM PST [...] and plan of care. TYRONE COLBY MD [facility] [address] 2se/uhn85 [place] [address] Taz Rand - 08/30 5:50 AM PST [...] transfusion if needed. Maximiliano Jorgensen Md - 8 6:45 AM PST Orthopaedic Surgery Progress Note [...] #2 -Anticipate D/C SNF on POD #3 Addendum:Error in my note regarding weight bearing status. She should be TDWB RLE and not WBAT. Maximiliano Jorgensen Md - 09/06 6:59 PM PSTOrthopaedic Surgery Progress Note - POC [...] DEPARTMENT OF | [address] | [place] [address] | | | PATHOLOGY | [address] | | | + + + + + | [facility] DEPARTMENT OF | [address] | [place] [address] | | | PATHOLOGY | [address] [...] DEPARTMENT OF | [address] | [place] [address] | | | PATHOLOGY | [address] | | | + + + + + | [facility] DEPARTMENT OF | [address] | [place] [address] | | | PATHOLOGY | [address] [...] (H) | 4.4 - 11.0 K/cu | [facility] | | | COUNT | | [...] [facility] DEPARTMENT OF | [address] [facility] | [place] [address] | | | PATHOLOGY | [address] | | | + + + + + | [facility] DEPARTMENT OF | [address] [facility] | [place] [address] | | | PATHOLOGY | [address] [...] DEPARTMENT OF | [address] | [place] [address] | | | PATHOLOGY | [address] | | | + + + + + | [facility] DEPARTMENT OF | [address] | [place] [address] | | | PATHOLOGY | [address] [...] [facility] DEPARTMENT OF | [facility] | [place] [address] | | | PATHOLOGY | [address] | | | + + + + + | [facility] DEPARTMENT OF | [address] | [place] [address] | | | PATHOLOGY | [address] [...] | | THERAPY | | | | GIS SCIENTIST | | | | + + + [...] [facility] | [address] | [place], [place] | | | THERAPY | [address] | [address] | | + + + + + | [facility] | [address] | [place], [place] | | | THERAPY | [address] | [address] | | + + + + + [...] Lynn, | | | | | | GIS SCIENTIST | | | | + + + [...] + + | [facility] | [address] [facility] | [place], [place] | | | THERAPY | [address] | [address] | | + + + + + | [facility] | [address] [facility] | [place], [place] | | | THERAPY | [address] | [address] | | + + + + + [...] DEPARTMENT OF | [address] | [place] [address] | | | PATHOLOGY | [address] | | | + + + + + | [facility] DEPARTMENT OF | [address] | [place] [address] | | | PATHOLOGY | [address] [...] [facility] DEPARTMENT OF | [address] | [place] [address] | | | PATHOLOGY | [address] | | | + + + + + | [facility] DEPARTMENT OF | [address] | [place] [address] | | | PATHOLOGY | [address] [...] | [facility] | [address] [facility] | [place] [address] | | | PATHOLOGY | [address] | | | + + + + + | [facility] | [address] [facility] | [place] [address] | | | PATHOLOGY | [address] [...] + | [facility] DEPARTMENT | [address] [facility] | [place] [address] | | | PATHOLOGY | [address] | | | + + + + + | [facility] DEPARTMENT | [address] [facility] | [place] [address] | | | PATHOLOGY | [address] [...] Recio, | | | | | | GIS SCIENTIST | | | | + + + [...] + + | [facility] | [address] | [place], [place] | | | THERAPY | [address] | [address] | | + + + + + | [facility] | [address] | [place], [place] | | | THERAPY | [facility] | [address] | | + + + + + [...] RESPIRATORY | | | | Signed by: | | THERAPY | | | | Nighat Recio RCP | | | | + + [...] + + | [facility] | [address] | [place], [place] | | | THERAPY | [facility] | [address] | | + + + + + | [facility] | [address] | [place], [place] | | | THERAPY | [facility] | [address] | | + + + + + [...] Recio, | | | | | | GIS SCIENTIST | | | | + + + [...] [facility] | [address] | [place], [place] | | | THERAPY | [address] | [address] | | + + + + + | [facility] | [address] | [place], [place] | | | THERAPY | [address] | [address] | | + + + + + [...] | | | | | | problems | | | | | | include, Reactive | | | | | | Airways | | | | | | [...] | | | | | Signed by: | | | | | | Nighat Recio [facility] | | | | + + [...] [facility] | [address] | [place], [place] | | | THERAPY | [address] | [address] | | + + + + + | [facility] | [address] | [place], [place] | | | THERAPY | [address] | [address] | | + + + + + [...] | | | | | | transfixing thedispla | | | | | | dhara greater trochanteric | | | | | | fracture in near | | | | | | anatomic alignment.There | | | | | | is no evidence of | | | | | | hardware failure. The | | | | | | left hemipelvis | | | | | | ispartially | | | | | | [...] | + + | Beatriz Beckett - 09/06/2008 12:00 AM PST | + + OPERATION RECORD (09/06/2008 12:00 AM PST) + + + | Narrative | Performed At | + + + | [id number] | | | [id number] | | | [id number] [facility] | | | [place] [id number] | | | Date: 09/06/2008 Attending | | | Surgeon: Tyrone Colby M.D. | | | Tariff Inspector(s): Maximiliano Chisholm | | | Malcom | | | Ke | | | [place] Gaston. Preoperative Diagnosis(es): | | | 1. Right hip osteoarthritis. 2. 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 3. 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 Postoperative Diagnosis(es): | | | 1. Right hip osteoarthritis. 2. 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 3. 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 Procedure: 1. Conversion of | | | previous hip surgery to Right total hip arthroplasty with complexity | | | modifier. 2. Excision of extensive heterotopic ossification | | | from the right hip. 3. Open reduction internal fixation with | | | autogenous bone grafting of right greater trochanter | | | nonunion. Implants: 1. [employer]hew BHR | | | acetabular cup, size 54 mm outer diameter with 40 mm | | | inner diameter. 2. Anthology femoral stem, size #4 with high | | | offset. 3. A #40 mm BHR modular femoral head with a +0 neck | | | length. 4. Anthony Integral long greater trochanteric cable | | | plate with four 1.8 mm cables. 5. Two | | | partially-threaded 4.0 mm cannulated screws with washers. | | | Anesthesia: General. Complications: None. | | | Indications: Ms. Galdamez is a 48-year-old female with a history of | | | progressive pain and disability related to her right hip. She | | | has undergone multiple previous surgeries on her right [...] subsequently treated with long-term IV antibiotics. She | | | has since resolved her infection. She went on to develop severe | | | osteoarthritis within the joint. 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 She also developed extensive heterotopic | | | ossification. Preoperative CT scan was obtained to identify the | | | exact location of the heterotopic bone. It was most prominent | | | laterally but also anteriorly along the acetabular rim and extending | | | up into the gluteus medius muscle extensively. The patient has | | | chronically used a 1-3/4 inch lift in her right shoe for an | | | apparent leg-length discrepancy, although radiographically, and | | | clinically, her leg lengths are approximately equal. It was | | | explained to her at great length what the apparent discrepancy | | | implies. She was counseled that we would not attempt to lengthen | | | her leg. We also counseled her that due to the chronic shortening of | | | her abductor mechanism with the significant gap in the nonunion | | | that it may be difficult to get a meaningful repair of that | | | nonunion. She was counseled that she then may very likely have a | | | long-term abductor lurch and that she would require extensive | | | therapy postoperatively to work on maximizing strength. The | | | patient expressed understanding of all these complicating | | | issues. She understood that she was at increased risk for repeat | | | infection, also at increased risk for major neurovascular injury. | | | She understood these risks and wished to proceed with the | | | above-listed procedure. Procedure: The patient was identified | | | in the preoperative holding area and the incision site marked by | | | the surgeon. The patient was transferred into the operating | | | room. General anesthesia was induced and endotracheal tube | | | placed; 2 g of cefazolin were given as antibiotic prophylaxis. | | | The patient was placed in the left lateral decubitus position with a | | | hip body rolling machine tender. The right hind quadrant and lower extremity were | | | prepped and draped in a sterile and free fashion. The surface | | | landmarks were identified, and an incision was marked out for a | | | posterior approach to the hip. The patient had the lateral horn | | | of heterotopic ossification that was easily palpable in the | | | subcutaneous tissue despite her morbid obesity. Incision was made | | | directly over this area. The previous incisional scar was | | | transverse, so it was crossed at ~90 degrees and not | | | incorporated. It should be noted that throughout the procedure, | | | the exposure and approach were markedly complicated by her previous | | | surgeries, her nonunion and her ectopic bone. The | | | subcutaneous fat overlying the heterotopic bone was atrophic and | | | stuck down to the lateral HO formation. Fascial planes were | | | recreated where possible. The fascia was incised in line with | | | the skin incision. The most prominent lateral heterotopic bone | | | was extending out in the area of the [...] then returned towards recreating subfascial planes anteriorly | | | and posteriorly. A Charnley retractor was placed with care taken | | | to protect the sciatic nerve. The nonunion site was next | | | encountered. There were several islands of ectopic bone | | | anteriorly which were excised as well as posteriorly. The nonunion | | | site was developed, and the soft tissue was debrided. We then | | | started developing the posterior soft tissue flap. This was | | | taken down en bloc off bone incorporating the broad trapezoidal | | | capsulotomy. The hip was then dislocated. The femoral neck | | | was cut in accordance with preoperative templating. The head was | | | removed. It was very irregular in shape and completely denuded | | | of cartilage. It was irregular throughout the articular | | | surface. The head was removed and saved for later bone grafting | | | of the nonunion site. The reflected head of the rectus femoris | | | was found to be scarred and contracted. This was released off | | | the acetabular rim to allow anterior mobilization of the femur for | | | exposure. Good retraction was obtained on the acetabulum. There | | | were few remnants of the labrum, which were excised | | | sharply. There were large medial osteophytes obscuring the | | | cotyloid fossa. Reaming was begun and carried down to the true | | | floor of the acetabulum and then sequentially up to a size 54 mm | | | reamer. We achieved an excellent press fit with trial components | | | of this size. There were several cysts in the acetabulum which | | | were curetted out and backfilled with cancellous graft from the | | | femoral head. The definitive cup was then press fit into place in | | | appropriate position. There were large osteophytes | | | anterosuperiorly and posteroinferiorly which were removed with a | | | broad osteotome, curettes, and rongeurs. Attention was then | | | returned towards the femur. The femoral canal was entered with | | | a box osteotome. We then sequentially broached up to accept a | | | size 4 Anthology component. We were rotationally very stable at | | | this size. Trial reduction reductions were performed, and we | | | settled on a +0 neck length. This was in agreement with | | | preoperative templating. She did have some impingement anteriorly, | | | which necessitated further removal of the anterior bone from the | | | pelvis. The trial components were removed, and the definitive | | | components were press fit into place. The hip was again | | | reduced. The impingement profile was improved. Attention | | | was then placed on trying to mobilize the greater trochanteric | | | piece. This required subfascial mobilization and release of a few | | | fibrotic bands within the gluteus medius. The trochanteric | | | remnant was again very irregular in shape. It took a good deal | | | of time to try to mobilize the fragment distally enough to where we | | | felt we might be able to achieve meaningful fixation. A Anthony | | | Integral cable plate with trochanteric claw was used to help | | | further mobilize the fragment with the claw placed | | | proximally. The cables were placed around the lesser trochanter | | | and sequentially tensioned to further mobilize the fragment. We | | | were able to achieve length this way. However, we were not able to | | | achieve any rotational stability. Therefore, the cable plate was | | | removed at this point. We then used the bone reduction clamps | | | to maintain the distalization of the trochanteric fragment and then | | | provisionally held it with two 4.0 cannulated partially-threaded | | | screws across the nonunion site. There was considerable effort | | | required to keep the fragment lateral enough to avoid trochanteric | | | impingement post fixation. The cannulated screws were successful | | | in provisionally holding the reduction while we replaced the | | | trochanteric cable plate. Four 1.8 mm cables were passed | | | inferior to the lesser trochanter and through the various holes of | | | the cable plate. Again, we sequentially tensioned the cables to | | | optimize placement, and the remainder of the cancellous bone from | | | the femoral head was then used to bone graft further the nonunion | | | site. We were able to achieve some bony contact prior to | | | grafting. This was greatly enhanced by the bone grafting | | | procedure. Bone tamps were used to impact the grafts underneath | | | the plate. There was a posterior lip of the proximal fragment, | | | which was then debrided with rongeur to avoid impingement in | | | external rotation. Upon completion of this procedure, we were | | | satisfied that we had somewhat recreated fairly normal proximal | | | femoral anatomy. The wound was copiously irrigated with | | | pulsatile lavage. The posterior soft tissue structures were too | | | contracted to allow for a meaningful repair. The remainder of | | | the wound was closed in layers over a medium Hemovac drain in a | | | standard fashion, and a standard dressing was applied. Plan | | | will be to maintain trochanteric precautions with touchdown | | | weightbearing for approximately 8 weeks to allow healing of the | | | nonunion site. Once some healing is confirmed radiographically, | | | she will be able to begin on strengthening her abductor complex | | | with PT. No intraoperative complications were appreciated. | | | Complexity Addendum: The patient had a number of complicating | | | issues including morbid obesity, multiple previous hip surgeries, | | | previous infection, extensive heterotopic bone formation, and | | | chronic nonunion of her greater trochanter. All these factors | | | greatly complicated the total hip arthroplasty. Surgical time was | | | approximately 6 hours. For these reasons, the complexity addendum | | | is warranted. Tyrone Colby M.D. | | | [facility] [id number] / [id number] / [id number] / | | | | | + + + + + | Procedure Note | + + | Tyrone Colby MD - 09/06/2008 12:00 AM PST [id number] | | [id number] [facility] | | [id number] Date: 09/06/2008 Attending Surgeon: Tyrone | | Ortiz Colby M.D. Tariff Inspector(s): Maximiliano Chisholm M.D. | | Lizette Wiggins. Preoperative Diagnosis(es):1. Right hip | | osteoarthritis.2. [...] decubitus position with a hip | | body rolling machine tender. Theright hind quadrant and lower extremity were [...] is | | warranted. Tyrone Colby M.D. [facility] / [id number] / [id number] / [id number] /D: | | 09/06/2008T: 09/06/2008 | |anteriorly [...] Colby M.D. | | | | | |[facility] / | |[id number] / [id number] / [id number] / | | | | | | [...] | | HOURS, 3 doses, First dose on Mon | | PM PST | | | | | 09/06/08 at 2100, Last dose on | | | | | | | [...] + +---------+ +---+--------+---+ | morphine 5 mg/mL CNC OPERATOR infusion | New Bag | 09/07/20 | [...] | | | | | NEEDED, Starting [facility] 09/07/08 at | | | | | | | 1955, Until [place] 09/09/08 at 1941, | | | | [...] | | +---+---+ + +-------+ +---------+---+---+ | senna-gatousate (justinjose cruz WILLIAM S) | Given | 09/09/20 | 2 [...]
--- OUTSIDE RECORDS SUMMARY | ~2019-02-26 | XMS | Encounter Summary ---
Demographics + + + | Address | [address] | | | [place] [address] | + + + | Home Phone [...] Providers + +------+ + | Care Customer Engagement Manager Name | Role | Phone | [...] as of this encounter Progress Notes Interface, Regional Business Development Manager In - 08/16/2006 1:10 AM PSTCLINIC DATE: [...] be requiring surgical intervention. Lloyd Garcia M.D. [employer] [employer] [facility] / [id number] / [id number] / [id number] / cc: Helio Noland M.D. Juan JoseJuan [place], [place] [address]Fiowfzoppllyhy signed by Interface, Regional Business Development Manager In at 08/16/2006 1: 10 AM PSTdocumented in this encounter Plan of Treatment Not on filedocumented as of this encounter Visit Diagnoses Not on filedocumented in this encounter"
--- OUTSIDE RECORDS SUMMARY | ~2019-02-26 | XMS | Encounter Summary ---
Demographics + + + | Address | [address] | | | [place] [address] | + + + | Home Phone [...] Team Providers + +------+ + | Care Acidizer Helper Name | Role | Phone | [...]
--- OUTSIDE RECORDS SUMMARY | ~2019-02-26 | XMS | Encounter Summary ---
Demographics + + + | Address | [address] | | | [place] [address] | + + + | Home Phone [...] Providers + +------+ + | Care Principal Cloud Architect Name | Role | Phone | [...] | | 2008 | | [facility] [address] | [address] | | | | | [facility] | [facility] | | | | | Mailcode: [id number] | [place], [place] | | | | | Physician's [facility] | [address] | | | | | [facility] [place] | [phone] | | | | | [address] | | | | | | [phone] | | | +--------+ + + + [...]
--- OUTSIDE RECORDS SUMMARY | ~2019-02-26 | XMS | Encounter Summary ---
Demographics + + + | Address | [address] | | | [place] [address] | + + + | Home Phone [...] Team Providers + +------+ + | Care Leaf Tinner Name | Role | Phone | + +------+ + | Travis Mcginnis MD | PCP | Unavailable | + +------+ + Encounter Details +--------+ + + + + | Date | Type | Department | Care Team | Description | +--------+ + + + + | 02/20/ | Software Test And Validation Engineer | Orthopaedics at | Kalyan Arias MD | Hip replacement | | 2009 | | [facility] [address] | [address] | (Primary Dx) | | | | [facility] | [facility] | | | | | Mailcode: [id number] | [facility] [place] | | | | | [facility] | [address] | | | | | [place], [place] | [phone] | | | | | [address] | | | | | | [phone] | | | +--------+ + + + [...] | | | | | Author: HUSSEIN eMek | | | | | | RAMA [...]
--- OUTSIDE RECORDS SUMMARY | ~2019-02-26 | XMS | Encounter Summary ---
Demographics + + + | Address | [address] | | | [place] [address] | + + + | Home Phone [...] Team Providers + +------+ + | Care Bedspread Folder Name | Role | Phone | + +------+ + | Marta Jenkins SUPERVISOR ENGINE ASSEMBLY | PCP | | + +------+ + Encounter Details +--------+ + + + + | Date | Type | Department | Care Team | Description | +--------+ + + + + | 10/27/ | Telephone | Orthopaedics at | Kalyan Arias MD | | | 2008 | | [facility] [address] | [address] | | | | | [facility] | [facility] | | | | | Mailcode: PV430 | [place], [place] | | | | | [facility] | [address] | | | | | [place], [place] | [phone] | | | | | [address] | | | | | | [phone] | | | +--------+ + + + [...]
--- OUTSIDE RECORDS SUMMARY | ~2019-02-26 | XMS | Encounter Summary ---
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 | | | | | | | Procedures | | | | | | | [place] TOTAL HIP | | | | | | | | | | | | | | ARTHROPLASTY | | | | | | | IA | | | | | | | RECONSTRUC | | | | | | | HIP | | | | | | | SOCKET,RESEC | | | | | | | FEM HEAD | | | | | | | IA REMOVAL | | | | | | | OF ISCHIAL | | | | | | | [place] | | | | | | | [...] [address] Evangelista PA-C | Pre-Operative | | | | [facility] | | Examination (Primary | | | | Mailcode: [id number] | | Dx) | | | | Physician's [facility]rence | | | | | | [place], [place] | | | | | | [address] | | | | | | [phone] | | | +--------+---------+ + + + [...] surgeries scheduled to take place on the [place] at the [facility]: Surgeries scheduled in the [facility] ([address] [place] [address]): registration is located on the 4th floor of [facility] (Day Surgery). Surgeries scheduled in the [facility]: registration is located on the 9th floor. Surgeries scheduled in [facility]: registration is located on the 6th floor. Surgeries scheduled in the [facility]: registration is located i n the [facility] on the first floor. For surgeries scheduled [...] If you use [facility], please check with your provider before [...] surgeries scheduled to take place on the [place] at the [facility]: Surgeries scheduled in the [facility] ( North): registration is located on the 4th floor of [facility] (Day Surgery). Surgeries scheduled in the [facility]: registration is located on the 9th floor. Surgeries scheduled in [facility]: registration is located on the 6th floor. Surgeries scheduled in the [facility]: registration is located i n the [facility] on the first floor. For surgeries scheduled to take place at the [facility]: registration is l [...] you use specialized medical equipment at h ome, please check with your provider before bringing [...] infection has s calvin been cleared with electrical and radio mechanic antibiotics. In this time she has also [...] OF ACTION: see above PARQ: see above. [facility] umeunice in this encounter Plan of [...] Performed At | + + + | [id number] Estimated GFR > 60 mL/min/1.73 sq m if non- | [facility] | | Malaysian [id number] Estimated GFR > 60 mL/min/1.73 sq m if | DEPARTMENT OF | | [place] GFR is estimated using the MDRD equation [...] + + + + | [facility] | [address] | [place] [address] | | | PATHOLOGY | [address] | | | + + + + + | [facility] | [facility] [address] | [place] [address] | | | PATHOLOGY | [address] [...] | [facility] | [facility] | [place] [address] | | | PATHOLOGY | [address] | | | + + + + + | [facility] DEPARTMENT OF | [facility] | [place] [address] | | | PATHOLOGY | [address] [...] + | [facility] DEPARTMENT | [address] [facility] | [place] [address] | | | PATHOLOGY | [address] | | | + + + + + | [facility] | [address] [place] [address] | [place] [address] | | | PATHOLOGY | [address] [...] + + + + | PRODUCT | [id number] | | [facility] | | | UNIT [...] DEPARTMENT OF | [address] | [place] [address] | | | PATHOLOGY | [address] | | | + + + + + | [facility] DEPARTMENT OF | [address] | [place] [address] | | | PATHOLOGY | [address] | | | + + + + + documented in this encounter Visit Diagnoses + + | Diagnosis | + + | Other specified pre-operative examination - Primary | + + documented in this encounter
--- OUTSIDE RECORDS SUMMARY | ~2019-02-26 | XMS | Encounter Summary ---
Demographics + + + | Address | [address] | | | [place] [address] | + + + | Home Phone [...] Providers + +------+ + | Care Freight Receiver Name | Role | Phone | [...] as of this encounter Progress Notes Interface, Maintenance Of Way Foreman In - 04/28/2005 6:17 PM PDTClinic Date: [...] is completed this weekend. Lloyd Garcia M.D. Filter Tank Tender Helper, [facility] / [id number] / [id number] / 42700 / 94680 cc: Ninfa Guillen M.D. [address] [place] [address], [place] [address]Hiseljviatmzdg signed by Interface, Maintenance Of Way Foreman In at 04/28/2005 6:1 7 PM PDTdocumented in this encounter Plan of Treatment Not on filedocumented as of this encounter Visit Diagnoses Not on filedocumented in this encounter"
--- OUTSIDE RECORDS SUMMARY | ~2019-02-26 | XMS | Encounter Summary ---
Demographics + + + | Address | [address] | | | [place] [address] | + + + | Home Phone [...] Team Providers + +------+ + | Care Appraisal Technician Name | Role | Phone | [...] | | | | | | | [place], | | | | | | | [place] [address] | +--------+--------+ + + + + Encounter Details +--------+ + + + + | Date | Type | Department | Care Team | Description | +--------+ + + + + | 09/06/ | Hospital | [facility] [address] | Tyrone Colby MD | | | 2007 - | Encounter | [address] | [address] [facility] | | | | | 2SE/UHN85 MULTNOMAH | [address] | | | 09/09/ | | ELAYNE (MNP/OLD | [place], [place] | | | 2007 | | [facility]) [place] | [address] | | | | | [address] | [phone] | | | | | | | [...] #3. Radiation oncology team was consulted and [facility] administered a single radiation treatment as [...] hip. 0. Needs continued PT/OT at [facility] 1. You may remove dressing 3 days after your surgery and OK for shower thereafter as long a s the incision is not draining. Sponge bath until dressings off. No soaking in tub, pool, et c. If there is drainage after [address] new guaze on the incision and call the Orthopaedi c clinic [phone]. 2. Continue to take Aspirin 325mg twice a day for a total of 6 weeks. Stop if you have stom ach upset or blood in your stool. Let your surgeon know if you have had GI bleeding in the p ast after taking Aspirin or NSAID's. 3. DO NOT let anyone start you on Antibiotics if they suspect your wound is infected. Call juvenile corrections officer [facility] Orthopaedist first. Call [phone] for daytime and weekdays, or [phone] for nights and weekends. If you have [...] Dr. Colby in 2 wks. Please call [phone] now to confirm appointment. Follow Up Tests: (Tests at [facility] must be entered into Epic) none [...] LAB follow-up) 0. Needs continued PT/OT at [facility] 1. You may remove dressing 3 days after your surgery and OK for shower thereafter as long a s the incision is not draining. Sponge bath until dressings off. No soaking in tub, pool, et c. If there is drainage after [address] new guaze on the incision and call the Orthopaedi c clinic [phone]. 2. Continue to take Aspirin 325mg twice a day for a total of 6 weeks. Stop if you have stom ach upset or blood in your stool. Let your surgeon know if you have had GI bleeding in the p ast after taking Aspirin or NSAID's. 3. DO NOT let anyone start you on Antibiotics if they suspect your wound is infected. Call juvenile corrections officer [facility] Orthopaedist first. Call [phone] for daytime and weekdays, or [phone] for nights and weekends. If you have [...] Dr. Colby in 2 wks. Please call [phone] now to confirm appointment. Follow Up Tests: (Tests at [facility] must be entered into [facility]) none Condition On Discharge: Good Discharge [...] Faculty - 8 12:00 AM Shelby Thompson [id number] [facility] REC NUMBER: [id number] NAME : Shelby Galdamez DATE : 1960 Admit Date: 09/06/2008 Discharge Date: 09/09/2008 PHYSICIAN'S REQUEST FOR HOME HEALTH SERVICES Relevant History: Location to receive services if other than home: Allergies: Height: Weight: Ordering Physician: [address] [facility] [address] [place] [address] Physician to follow for ongoing home health orders: PCP Name: PCP Phone: Discharge Need(s): 1. Fdc Facility Discharge Vendor: [facility] Discharge Suggested First Visit/Delivery Date: Discharge Service/Equipment: 2. Transportation Discharge Vendor: Medicaid - [place] Discharge Suggested First Visit/Delivery Date: Discharge Service/Equipment: stretcher 12:30pm Solar Energy Technician: Tr Rosales - 09/08/2008 2:22 PM PSTRADIATION [...] as able . Tasha Harding OTR//L Pager [phone] Tyrone Haney - 2007 7:55 AM PST [...] and plan of care. TYRONE COLBY MD [facility] [address] 2se/uhn85 [place] [address] Taz Rand - 08/30 5:50 AM PST [...] DEPARTMENT OF | [address] | [place] [address] | | | PATHOLOGY | [address] | | | + + + + + | [facility] DEPARTMENT OF | [address] | [place] [address] | | | PATHOLOGY | [address] [...] | + + + + + | [facility] DEPARTMENT OF | [address] | [place] [address] | | | PATHOLOGY | [address] | | | + + + + + | [facility] DEPARTMENT OF | [address] | [place] [address] | | | PATHOLOGY | [address] [...] (H) | 4.4 - 11.0 K/cu | [facility] | | | COUNT | | [...] | + + + + + | [facility] DEPARTMENT OF | [address] [facility] | [place] [address] | | | PATHOLOGY | [address] | | | + + + + + | [facility] DEPARTMENT OF | [address] [facility] | [place] [address] | | | PATHOLOGY | [address] [...] DEPARTMENT OF | [address] | [place] [address] | | | PATHOLOGY | [address] | | | + + + + + | [facility] DEPARTMENT OF | [address] | [place] [address] | | | PATHOLOGY | [address] [...] | + + + + + | [facility] DEPARTMENT OF | [facility] | [place] [address] | | | PATHOLOGY | [address] | | | + + + + + | [facility] DEPARTMENT OF | [address] | [place] [address] | | | PATHOLOGY | [address] [...] | | THERAPY | | | | LEATHER SCRAPER | | | | + + + [...] [facility] RESPIRATORY | [address] | [place], [place] | | | THERAPY | [address] | [address] | | + + + + + | [facility] RESPIRATORY | [address] | [place], [place] | | | THERAPY | [address] | [address] | | + + + + + [...] Lynn, | | | | | | LEATHER SCRAPER | | | | + + + [...] + | [facility] RES[facility] | [address] [facility] | [place], [place] | | | THERAPY | [address] | [address] | | + + + + + | [facility] RES[facility]ATORY | [address] [facility] | [place], [place] | | | THERAPY | [address] | [address] | | + + + + + [...] DEPARTMENT OF | [address] | [place] [address] | | | PATHOLOGY | [address] | | | + + + + + | [facility] DEPARTMENT OF | [address] | [place] [address] | | | PATHOLOGY | [address] [...] | + + + + + | [facility] DEPARTMENT OF | [address] | [place] [address] | | | PATHOLOGY | [address] | | | + + + + + | [facility] DEPARTMENT OF | [address] | [place] [address] | | | PATHOLOGY | [address] [...] [facility] | [address] [facility] [facility] | [place] [address] | | | PATHOLOGY | [address] | | | + + + + + | [facility] | [address] [facility] | [place] [address] | | | PATHOLOGY | [address] [...] | + + + + + | [facility] DEPARTMENT | [address] [facility] | [place] [address] | | | PATHOLOGY | [address] | | | + + + + + | [facility] DEPARTMENT | [address] [facility] | [place] [address] | | | PATHOLOGY | [address] [...] Recio, | | | | | | LEATHER SCRAPER | | | | + + + [...] [facility] RES[facility] | [address] | [place], [place] | | | THERAPY | [address] | [address] | | + + + + + | [facility] RESP[facility] | [address] | [place], [place] | | | THERAPY | [facility] | [address] | | + + + + + [...] [facility] RES[facility] | [address] | [place], [place] | | | THERAPY | [facility] | [address] | | + + + + + | [facility] RES[facility] | [address] | [place], [place] | | | THERAPY | [facility] | [address] | | + + + + + [...] Recio, | | | | | | LEATHER SCRAPER | | | | + + + [...] [facility] RES[facility] | [address] | [place], [place] | | | THERAPY | [address] | [address] | | + + + + + | [facility] RES[facility] | [address] | [place], [place] | | | THERAPY | [address] | [address] | | + + + + + [...] | | | | | Nighat Recio [facility] | | | | + [...] [facility] RES[facility] | [address] | [place], [place] | | | THERAPY | [address] | [address] | | + + + + + | [facility] RES[facility] | [address] | [place], [place] | | | THERAPY | [address] | [address] | | + + + + + [...] Performed At | + + + | [id number] | | | [id number] | | | [id number] CHAD | | | SHELBY Osei [id number] | | | Date: 09/06/2008 Attending | | | Surgeon: Tyrone Colby M.D. | | | Burner Machine Operator(s): Maximiliano Chisholm | | | Malcom | [...] position with a | | | hip rn social work. The right hind quadrant and lower extremity [...] warranted. Tyrone Colby M.D. | | | [facility] [id number] / [id number] / [id number] / | | | | | + + + + + | Procedure Note | + + | Tyrone Colby MD - 09/06/2008 12:00 AM PST [id number] | | [id number] [facility]se[facility] | | [id number] Date: 09/06/2008 Attending Surgeon: Tyrone | | Ortiz Colby M.D. Burner Machine Operator(s): Maximiliano Chisholm M.D. | | Lizette Wiggins. [...] decubitus position with a hip | | rn social work. Theright hind quadrant and lower extremity were [...] is | | warranted. Tyrone Colby M.D. [facility] / [id number] / [id number] / [id number] /D: | | 09/06/2008T: 09/06/2008 | |anteriorly [...] Colby M.D. | | | | | |[facility] / | |[id number] / [id number] / [id number] / | | | | | | [...] + +---------+ +---+--------+---+ | morphine 5 mg/mL REGULATORY INTERNSHIP infusion | New Bag | 09/07/20 | [...] | | | | | NEEDED, Starting Pending Sale To [facility] 09/07/08 at | | | | | [...]
--- OUTSIDE RECORDS SUMMARY | ~2019-02-26 | XMS | Encounter Summary ---
Demographics + + + | Address | [address] | | | [place] [address] | + + + | Home Phone | | + + + | Preferred Language | Unknown | + + + | Marital Status | Single | + + + | Nondenominational Affiliation | Unknown | + + + | Race | Unknown | + + + | Ethnic Group | Unknown | + + + Author + + + | Author | [employer] | + + + | Organization | [facility] [employer] [facility] | + + + | Address | Unknown | + + + | Phone | Unavailable | + + + Support + + +---------+ + | Name | Relationship | Address | Phone | + + +---------+ + | Kristel Teresa | ECON | Unknown | | + + +---------+ + Care Team Providers + +------+ + | Care Invoice Machine Operator Name | Role | Phone [...] | Other | | 2019 | | [facility] | | | | | | [address] | | | | | | [place] | | | | | | [address] | | | | | | [phone] | | | +--------+ + + + [...] SANTA | | | | | | [id number] | | | | | | | | +--------+---------+ + + + as of this encounter Visit Diagnoses Not on filein this encounter"
--- OUTSIDE RECORDS SUMMARY | ~2019-02-26 | XMS | Encounter Summary ---
Demographics + + + | Address | [address] | | | [place] [address] | + + + | Home Phone [...] Team Providers + +------+ + | Care Sap Ppm Consultant Name | Role | Phone | [...] [address]ank[address] | (documentation); | | | | [facility] | [facility] | Other (documentation | | | | Mailcode: PV430 | [place], [place] | not done yet | | | | [facility] | [address] | 07-18.) | | | | [place], [place] | [phone] | | | | | [address] | | | | | | [phone] | | | +--------+ + + + [...]
--- OUTSIDE RECORDS SUMMARY | ~2019-02-26 | XMS | Clinical Summary ---
Demographics + + + | Address | [address] | | | [place] [address] | + + + | Home Phone | | + + + | Preferred Language | Unknown | + + + | Marital Status | Single | + + + | Gnosticism Affiliation | Unknown | + + + | Race | Unknown | + + + | Ethnic Group | Unknown | + + + Author + + + | Author | [employer] | + + + | Organization | [facility] [employer] [facility] | + + + | Address | Unknown | + + + | Phone | Unavailable | + + + Support + + +---------+ + | Name | Relationship | Address | Phone | + + +---------+ + | Kristel Teresa | ECON | Unknown | | + + +---------+ + Care Team Providers + +------+ + | Care Light Cleaner Name | Role | Phone | [...] | | | | | [place] | | | | | | [id number] | | | | | | | [...] +------+-------+ + | MEDICAID | [place]ASTER | [id number] | | | [address] | | | N | | | | [place] | | | [place] | | | | [address] | | | BLEACH ANALYST | | | | | + +--------+ [...] Self | [birth year] Home: | [address] | | | al/Fam | | 1960 | [phone] | [place] | | | gigi | | | [birth year]22 | [address] | + +--------+ +--------+ + +
--- OUTSIDE RECORDS SUMMARY | ~2019-02-26 | XMS | Encounter Summary ---
Demographics + + + | Address | [address] | | | [place] [address] | + + + | Home Phone [...] Providers + +------+ + | Care Manager Drug Name | Role | Phone | + +------+ + PCP | Unavailable | + +------+ + Encounter Details +--------+ + + + + | Date | Type | Department | Care Team | Description | +--------+ + + + + | // | Results | | Other, Faculty | | | 2003 | Only | | [phone] | | +--------+ + + + + [...] DEPARTMENT OF | [address] | [place] [address] | | | PATHOLOGY | [address] | | | + + + + + | [facility] DEPARTMENT OF | [address] | [place] [address] | | | PATHOLOGY | [address] [...] [facility] DEPARTMENT OF | [address] [facility] | [place] [address] | | | PATHOLOGY | [address] | | | + + + + + | [facility] | [address] [facility] | [place] [address] | | | PATHOLOGY | [address] [...] | + + + + + | [facility] | [address] | [place] [address] | | | LABORATORY | | | [...] [facility] DEPARTMENT OF | [address] [facility] | [place] [address] | | | PATHOLOGY | [address] | | | + + + + + | [facility] DEPARTMENT OF | [address] [facility] | [place] [address] | | | PATHOLOGY | [address] [...] [facility] DEPARTMENT OF | [address] [facility] | [place] [address] | | | PATHOLOGY | [address] | | | + + + + + | [facility] DEPARTMENT OF | [address] | [place] [address] | | | PATHOLOGY | [address] [...] [facility] DEPARTMENT OF | [address] [facility] | [place] [address] | | | PATHOLOGY | [address] | | | + + + + + | [facility] DEPARTMENT OF | [address] [facility] | [place] [address] | | | PATHOLOGY | [address] [...] [facility] DEPARTMENT OF | [address] [facility] | [place] [address] | | | PATHOLOGY | [address] | | | + + + + + | [facility] | [address] | [place] [address] | | | PATHOLOGY | [address] [...] DEPARTMENT OF | [address] | [place] [address] | | | PATHOLOGY | [address] | | | + + + + + | [facility] DEPARTMENT OF | [address] | [place] [address] | | | PATHOLOGY | [address] [...] [facility] DEPARTMENT OF | [address] | [place] [address] | | | PATHOLOGY | [address] | | | + + + + + | [facility] DEPARTMENT OF | [address] | [place] [address] | | | PATHOLOGY | [address] [...] [facility] DEPARTMENT OF | [facility] [address] [address] | [place] [address] | | | PATHOLOGY | [address] | | | + + + + + | [facility] DEPARTMENT OF | [address] [place] [address] | [place] [address] | | | PATHOLOGY | [address] [...] OF | [address] | [place] [address] | | | PATHOLOGY | [address] | | | + + + + + | [facility] DEPARTMENT OF | [address] | [place] [address] | | | PATHOLOGY | [address] [...] 10.8 | 4.4 - 11.0 K/cu | [facility] | | | COUNT | | mm | DEPARTMENT | | | | | | OF | | | | | | PATHOLOGY | | + + + + + + | [facility] | 2.34 (L) | 3.65 - 5.10 | [facility] | | | COUNT | | M/cu [...] DEPARTMENT OF | [address] | [place] [address] | | | PATHOLOGY | [address] | | | + + + + + | [facility] DEPARTMENT OF | [address] | [place] [address] | | | PATHOLOGY | [address] [...] DEPARTMENT OF | [address] | [place] [address] | | | PATHOLOGY | [address] | | | + + + + + | [facility] | [address] | [place] [address] | | | PATHOLOGY | [address] | | | + + + + + documented in this encounter Visit Diagnoses Not on filedocumented in this encounter"
--- OUTSIDE RECORDS SUMMARY | ~2019-02-26 | XMS | Encounter Summary ---
Demographics + + + | Address | [address] | | | [place] [address] | + + + | Home Phone [...] Team Providers + +------+ + | Care Cranberry Sorter Name | Role | Phone | [...] as of this encounter Progress Notes Interface, Football Scout In - 04/28/2005 7:30 PM PDTClinic Date: [...] signs of recurrent infection. Lloyd Garcia M.D. [facility] / [id number] / [id number] / [id number] / 65127 cc: Ninfa Guillen M.D. [address] [place], [place] [address]Ezafozrpqvsynn signed by Interface, Football Scout In at 04/28/2005 7:3 0 PM PDTdocumented in this encounter Plan of Treatment Not on filedocumented as of this encounter Visit Diagnoses Not on filedocumented in this encounter"
--- OUTSIDE RECORDS SUMMARY | ~2019-02-26 | XMS | Encounter Summary ---
Demographics + + + | Address | [address] | | | [...] Providers + +------+ + | Care Clock Assembler Name | Role | Phone | + +------+ + PCP | Unavailable | + +------+ + Encounter Details +--------+ + + + + | Date | Type | Department | Care Team | Description | +--------+ + + + + | 02/19/ | Results | Orthopaedics at | Lloyd Garcia MD | | | 2001 | Only | PPV [address] | | | | | | [facility] | | | | | | Mailcode: PV430 | | | | | | Physician'yokasta Ocampo | | | | | | [place], [place] | | | | | | [address] | | | | | | [phone] | | | +--------+ + + + [...] | | | | | underlying soft | | | | | | tissues. The needle | | | | | | was directed toward | | | | | | themedial femoral | | | | | | head/neck junction and | | | | | | intra-articular needle | | | | | | positionwas confirmed | | | | | | with 1-2 cc of Hypaque | | | | | | 60%. Then a mixture | | | | | | of 5 cc ofbupivacaine | | | | | | and 40 mg of Aristospan | | | | | | was | | | | | | [...] | | | | | | particularly | | | | | | medially. There are | | | | | [...] | | | | | | procedure. | | | | | | 2. Findings of | | | | | | adhesive capsulitis with | | | | | | high pressure small | | | | | | capacity joint. | | | | | | 3. Severe | | | | | | [...]
--- OUTSIDE RECORDS SUMMARY | ~2019-02-26 | XMS | Encounter Summary ---
Demographics + + + | Address | [address] | | | [place] [address] | + + + | Home Phone [...] Team Providers + +------+ + | Care Gmat Tutor Name | Role | Phone | + +------+ + | Marta Jenkins INSTRUCTOR ROBOTICS | PCP | | + +------+ + Encounter Details +--------+ + + + + | Date | Type | Department | Care Team | Description | +--------+ + + + + | 12/03/ | Ancillary | Registration [address] | Gion Baker MD | | | 2005 | Registratio | [address] | [address] | | | | n | [address]et Mailcode: | [address] [place], | | | | | [address] [place], [place] | [place] [address] | | | | | [address] | | | | | | [phone] | | | +--------+ + + + [...]
--- OUTSIDE RECORDS SUMMARY | ~2019-02-26 | XMS | Encounter Summary ---
Demographics + + + | Address | [address] | | | [place] [address] | + + + | Home Phone [...] Providers + +------+ + | Care Gang Rider Name | Role | Phone | + [...] Pankaj | | | | | [facility] | [facility] | | | | | Mailcode: [id number] | [facility] [place] | | | | | Phys[facility]ilion | [address] | | | | | [place], [place] | [phone] | | | | | [address] | | | | | | [phone] | | | +--------+ + + + [...]
--- OUTSIDE RECORDS SUMMARY | ~2019-02-26 | XMS | Encounter Summary ---
Demographics + + + | Address | [address] | | | [place] [address] | + + + | Home Phone | | + + + | Preferred Language | Unknown | + + + | Marital Status | Single | + + + | Holiness Affiliation | Unknown | + + + | Race | Unknown | + + + | Ethnic Group | Unknown | + + + Author + + + | Author | [email or web address] | + + + | Organization | [facility] | + + + | Address | Unknown | + + + | Phone | Unavailable | + + + Support + + +---------+ + | Name | Relationship | Address | Phone | + + +---------+ + | Kristel Teresa | ECON | Unknown | | + + +---------+ + Care Team Providers + +------+ + | Care Cooperative Extension Agent Name | Role | Phone | [...] Required | Medicine / | Radiculopath | FELT FINISHER [address] | [address] | | | | Dolorology | y of lumbar | [address] | DR PETERSEN B | | | | | region | [address] | [place], [place] | | | | | Osteoarthrit | [place], [place] | [address] Phone: | | | | | is of lumbar | [address] | [phone] | | | | | spine, | Phone: | Fax: | | | | | unspecified | [phone] | [phone] | | | | | spinal | Fax: | | | | | | osteoarthrit | [phone] | | | | | | is [...] + + | 12/04/ | Office | [facility] | Xiang Sepulveda, | Radiculopathy of | | 2019 | Visit | [facility] | DO [address] | lumbar region; Facet | | | | [address] | [place], [place] | arthropathy, | | | | [place] | [address] | lumbar; | | | | [address] | | Osteoarthritis of | | | | [phone] | | lumbar spine, | | | [...] to physical therapy, mass age therapy, acupuncture, wound care coordinator, along with recommended psychological counseling , either privately, or in group sessions offered by private care individuals, community serv ices, or oriental orthodox organizations. Appropriate referrals were made at [...] plan, Will return to office in 8weeks, [facility] was consulted and appears appropriate, Urine [...] dysfunction are noted in men and women. [facility] men will suffer erectile dysfunction with [...] and complications with the passage of time. bed bug exterminator use is also associated with depressions, [...] 04/09/ | Office | Dolorology | Xiang Sepulvead, | | | 2018 | Visit | | DO [address] | | | | | | [place] | | | | | | [address] | | | | | | | [...]
--- OUTSIDE RECORDS SUMMARY | ~2019-02-26 | XMS | Encounter Summary ---
Demographics + + + | Address | [address] | | | [place] [address] | + + + | Home Phone [...] Providers + +------+ + | Care Vacuum Pan Operator Name | Role | Phone | [...]
--- OUTSIDE RECORDS SUMMARY | ~2019-02-26 | XMS | Encounter Summary ---
Demographics + + + | Address | [address] | | | [place] [address] | + + + | Home Phone [...] Providers + +------+ + | Care Labor Contractor Name | Role | Phone | [...] Lira | | | | | | [facility] | | | | | | Mailcode: PV430 | | | | | | Physician'yokasta Ocampo | | | | | | [place], [place] | | | | | | [address] | | | | | | [phone] | | | +--------+ + + + [...] + +---------+ + + | [facility] DEPARTMENT OF | | | | | RADIOLOGY | | | | + +---------+ + + documented in this encounter Visit Diagnoses Not on filedocumented in this encounter"
--- OUTSIDE RECORDS SUMMARY | ~2019-02-26 | XMS | Encounter Summary ---
Demographics + + + | Address | [address] | | | [place] [address] | + + + | Home Phone [...] Team Providers + +------+ + | Care Dumper Operator Name | Role | Phone | [...] | unspecified | [address] | Rd [place], | | | | | whether | [place], [place] | [place] | | | | | generalized | [address] | [address] | | | | | or | Phone: | Phone: | | | | | localized, | [phone] | [phone] | | | | | pelvic | Fax: | Fax: | | | | | region and | [phone] | [phone] | | | | | thigh | [...] PA-C | Pre-Operative | | | | [facility] | | Examination (Primary | | | | Mailcode: [id number] | | Dx) | | | | Physician's Terrence | | | | | | [place], [place] | | | | | | [address] | | | | | | [phone] | | | +--------+---------+ + + + [...] surgeries scheduled to take place on the [place] at the [facility]: Surgeries scheduled in the [facility] ([address] [place] [address]): registration is located on the 4th floor of [facility] (Day Surgery). Surgeries scheduled in the [facility]: registration is located on the 9th floor. Surgeries scheduled in [facility]: registration is located on the 6th floor. Surgeries scheduled in the [facility]: registration is located i n the [facility] on the first floor. For surgeries scheduled to take place at the [facility]: registration is l ocated [...] If you use specialized medical equipment at [facility], please check with your provider before [...] surgeries scheduled to take place on the [place] at the [facility]: Surgeries scheduled in the [facility] ( North): registration is located on the 4th floor of [facility] (Day Surgery). Surgeries scheduled in the [facility]: registration is located on the 9th floor. Surgeries scheduled in [facility]: registration is located on the 6th floor. Surgeries scheduled in the [facility]: registration is located i n the [facility] on the first floor. For surgeries scheduled to take place at the [facility]: registration is l [...] infection has s calvin been cleared with type photography supervisor antibiotics. In this time she has [...] OF ACTION: see above PARQ: see above. [facility] umeunice in this encounter Plan [...] Performed At | + + + | [id number] Estimated GFR > 60 mL/min/1.73 sq m if non- | [facility] | | [place] [id number] Estimated GFR > 60 mL/min/1.73 sq m if | DEPARTMENT OF | | [place] GFR is estimated using the MDRD equation [...] SERVICES OF | [address] | [place] [address] | | | PATHOLOGY | [address] | | | + + + + + | [facility] | [facility] [address] | [place] [address] | | | PATHOLOGY | [address] [...] + + | [facility] | [facility] | [place] [address] | | | PATHOLOGY | [address] | | | + + + + + | [facility] DEPARTMENT OF | [facility] | [place] [address] | | | PATHOLOGY | [address] [...] + | [facility] DEPARTMENT | [address] [facility] | [place] [address] | | | PATHOLOGY | [address] | | | + + + + + | [facility] | [address] [place] [address] | [place] [address] | | | PATHOLOGY | [address] [...] + + + + | PRODUCT | [id number] | | [facility] | | | UNIT [...] DEPARTMENT OF | [address] | [place] [address] | | | PATHOLOGY | [address] | | | + + + + + | [facility] DEPARTMENT OF | [address] | [place] [address] | | | PATHOLOGY | [address] | | | + + + + + documented in this encounter Visit Diagnoses + + | Diagnosis | + + | Other specified pre-operative examination - Primary | + + documented in this encounter
--- OUTSIDE RECORDS SUMMARY | ~2019-02-26 | XMS | Encounter Summary ---
Demographics + + + | Address | [address] | | | [place] [address] | + + + | Home Phone [...] Team Providers + +------+ + | Care River Guide Name | Role | Phone | [...] as of this encounter Progress Notes Interface, Resource Specialist Teacher In - 06/11/2006 3:03 AM PDTCLINIC DATE: [...] clinic today. It was done in a Okay in [facility] on December 08, 2001. There is [...] on an as-needed basis. Vince Krishna M.D. [facility] / [id number] / [id number] / [id number] / cc: Ninfa Guillen M.D. [address] [place] [id number] [address] [facility] Orthopedics and Rehabilitation Lloyd Garcia M.D. [facility] Orthopedics and RehabiliationElectronically signed by Interface, Resource Specialist Teacher In at 0 06/11/2006 3:03 AM PDTdocumented in this encounter Plan of Treatment Not on filedocumented as of this encounter Visit Diagnoses Not on filedocumented in this encounter"
--- OUTSIDE RECORDS SUMMARY | ~2019-02-26 | XMS | Encounter Summary ---
Demographics + + + | Address | [address] | | | [place] [address] | + + + | Home Phone [...] Team Providers + +------+ + | Care Fig Bar Machine Operator Name | Role | Phone | + +------+ + PCP | Unavailable | + +------+ + Encounter Details +--------+ + + + + | Date | Type | Department | Care Team | Description | +--------+ + + + + | 01/16/ | Abstract | UNKNOWN DEPARTMENT | Unknown . | | | 2005 | | [address] [facility] | | | | | | [facility] | | | | | | [place], [place] | | | | | | [address] | | | +--------+ + + + [...]
--- OUTSIDE RECORDS SUMMARY | ~2019-02-26 | XMS | Encounter Summary ---
Demographics + + + | Address | [address] | | | [place] [address] | + + + | Home Phone [...] Providers + +------+ + | Care Payroll Accounting Specialist Name | Role | Phone | [...] + | [facility] | [address] [facility] | [place] [address] | | | PATHOLOGY | [address] | | | + + + + + | [facility] | [facility] | [place] [address] | | | PATHOLOGY | [address] [...] [facility] DEPARTMENT OF | [address] | [place] [address] | | | PATHOLOGY | [address] | | | + + + + + | [place] DEPARTMENT OF | [address] | [place] [address] | | | PATHOLOGY | [address] [...] + + | [facility] | [facility] | [place] [address] | | | PATHOLOGY | [address] | | | + + + + + | [facility] | [facility] [address] | [place] [address] | | | PATHOLOGY | [address] [...] | [facility] | [address] | [place] [address] | | | PATHOLOGY | [address] | | | + + + + + | [facility] | [address] | [place] [address] | | | PATHOLOGY | [address] | | | + + + + + documented in this encounter Visit Diagnoses Not on filedocumented in this encounter"
--- OUTSIDE RECORDS SUMMARY | ~2019-02-26 | XMS | Encounter Summary ---
Demographics + + + | Address | [address] | | | [place] [address] | + + + | Home Phone [...] Team Providers + +------+ + | Care Cabin Equipment Supervisor Name | Role | Phone | + +------+ + | Marta Jenkins TELEPHONE MESSENGER | PCP | | + +------+ + [...] | [address] Mailcode: | [address] [place], | | | | | [address] [place], [place] | [place] [address] | | | | | [address] | | | | | | [phone] | | | +--------+ + + + [...]
--- OUTSIDE RECORDS SUMMARY | ~2019-02-26 | XMS | Encounter Summary ---
Demographics + + + | Address | [address] | | | [place] [address] | + + + | Home Phone [...] Team Providers + +------+ + | Care Locomotive Repairer Diesel Name | Role | Phone | + [...] | | | | | Osteoarthros | [address] | Pavilion | | | | | is, | | [place], [place] | | | | | unspecified | | [address] | | | | | whether | | Phone: | | | | | generalized | | [phone] | | | | | or | | Fax: | | | | | localized, | | [phone] | | | | | pelvic | [...] Hip (Primary Dx) | | | | [facility] | [address] [place], | | | | | Mailcode: PV430 | [place] [address] | | | | | Physician's Terrence | | | | | | [place], [place] | | | | | | [address] | | | | | | [phone] | | | +--------+---------+ + + + [...] Walks with glut medius limp. Uses cane wall mirror department supervisor. Pain is in inner groin and posteriorly. [...] + | Performing | Address | City/State/[facility] | Phone Number | | Organization | [...]
--- OUTSIDE RECORDS SUMMARY | ~2019-02-26 | XMS | Encounter Summary ---
Demographics + + + | Address | [address] | | | [place] [address] | + + + | Home Phone [...] Team Providers + +------+ + | Care Cutting Machine Tender Decorative Name | Role | Phone | + [...] | Transcriptions | + + | Interface, Precision Assembly Inspector In - 09/19/2005 9:05 PM PST Date: | | 10/01/2003Attending Surgeon: Lloyd Garcia M.D.Care Companion(s): | | Benson Boone M.D.Preoperative Diagnoses:Right hip [...] cheilectomy on July | | 2002 via [facility]. It was complicated by greater trochanter [...] Boone, | | Haleigh Garcia M.D.RT / [id number] / [id number] / [id number] / [id number]: 10/01/2003T: 10/02/2003 | |2002, was demonstrating that [...] | | | |RT / HS | |[id number] / [id number] / [id number] / [id number] | | | | | + + documented in this encounter Visit Diagnoses Not on filedocumented in this encounter"
--- OUTSIDE RECORDS SUMMARY | ~2019-02-26 | XMS | Encounter Summary ---
Demographics + + + | Address | [address] | | | [place] [address] | + + + | Home Phone [...] Providers + +------+ + | Care Non Cdl Driver Name | Role | Phone | [...] | Transcriptions | + + | Interface, Credit Intern In - 02/27/2006 3:05 AM PDT Date: [...] | | Malcom GarciaRT/aceD: 09/14/2003T: 09/15/2003 9:10 [id number] | |bellberna. The proximal greater trochanter fragment [...] |RT/magalie | | | | A | |[id number] | + + documented in this encounter Visit Diagnoses Not on filedocumented in this encounter"
--- OUTSIDE RECORDS SUMMARY | ~2019-02-26 | XMS | Encounter Summary ---
Demographics + + + | Address | [address] | | | [place] [address] | + + + | Home Phone [...] Providers + +------+ + | Care Software Development Test Engineer Name | Role | Phone [...] | 2008 | Encounter | Radiology at [facility] | | | | | | [address] [facility] | | | | | | [facility] | | | | | | Mailcode: PV450 | | | | | | [address] | | | | | | [place], [place] | | | | | | [address] | | | | | | [phone] | | | +--------+ + + + [...]
--- OUTSIDE RECORDS SUMMARY | ~2019-02-26 | XMS | Encounter Summary ---
Demographics + + + | Address | [address] | | | [place] [address] | + + + | Home Phone [...] Team Providers + +------+ + | Care Magazine Editor Name | Role | Phone | [...] | | | 2010 | on | [facility] [address] | HERMINIO Swain [address] | | | | | [facility] | [facility] | | | | | [facility] | [place], [place] | | | | | [place], [place] | [address] | | | | | [address] | | | | | | [phone] | | | +--------+ + + + [...]
--- OUTSIDE RECORDS SUMMARY | ~2019-02-26 | XMS | Encounter Summary ---
Demographics + + + | Address | [address] | | | [place] [address] | + + + | Home Phone [...] Team Providers + +------+ + | Care Doughnut Fryer Name | Role | Phone | + +------+ + | Marta Jenkins VARNISH MAKER HELPER | PCP | | + [...] [address] | | | | | ([facility]) | [address] | Mailcode: | | | | | Procedures | Rd | [facility] | | | | | PHYSICAL | [place], [place] | for Health | | | | | THERAPY | [address] | and Healing, | | | | | REFERRAL | Phone: | 1st floor | | | | | | [phone] | [place], [place] | | | | | | Fax: | [address] | | | | | | [phone] | Phone: | | | | | | | [phone] | | | | | | | Fax: | | | | | | | [phone] | +--------+--------+ + + + + Encounter Details +--------+ + + + + | Date | Type | Department | Care Team | Description | +--------+ + + + + | 11/19/ | Hospice/Home Health Aide | Digestive Health | Wanda López ACNP | Morbid obesity (HCC) | | 2019 | | Center at [facility] [address] | [address] | (Primary Dx) | | | | [address] | [address] [place], | | | | | Mailcode: [place] | [place] [address] | | | | | for Health and | [phone] | | | | | [facility] [address] | | | | | | [place], [place] | | | | | | [address] | | | | | | | [...]
--- OUTSIDE RECORDS SUMMARY | ~2019-02-26 | XMS | Encounter Summary ---
Demographics + + + | Address | [address] | | | [place] [address] | + + + | Home Phone [...] Providers + +------+ + | Care Wire Drawer Name | Role | Phone | + [...] | Transcriptions | + + | Interface, Health Education Director In - 09/19/2005 9:05 PM PST Date: | | 10/01/2003Attending Surgeon: Lloyd Garcia M.D.Intermediate Designer(s): | | Benson Boone M.D.Preoperative Diagnoses:Right hip [...] cheilectomy on July | | 2002 via [facility]. It was complicated by greater [...] Boone, | | Haleigh Garcia M.D.RT / [id number] / [id number] / [id number] / [id number]: 10/01/2003T: 10/02/2003 | |2002, was demonstrating that [...] | | | |RT / HS | |[id number] / [id number] / [id number] / [id number] | | | | | + + documented in this encounter Visit Diagnoses Not on filedocumented in this encounter"
--- OUTSIDE RECORDS SUMMARY | ~2019-02-26 | XMS | Encounter Summary ---
Demographics + + + | Address | [address] | | | [place] [address] | + + + | Home Phone | | + + + | Preferred Language | Unknown | + + + | Marital Status | Single | + + + | Mormonism Affiliation | Unknown | + + + | Race | Unknown | + + + | Ethnic Group | Unknown | + + + Author + + + | Author | [employer] | + + + | Organization | [facility] [employer] | + + + | Address | Unknown | + + + | Phone | Unavailable | + + + Support + + +---------+ + | Name | Relationship | Address | Phone | + + +---------+ + | Kristel Teresa | ECON | Unknown | | + + +---------+ + Care Team Providers + +------+ + | Care Neurobiologist Name | Role | Phone | + [...] Sepulveda, | | | 2018 | | [facility] | DO [address] | | | | | [address] | [place] | | | | | [place] | [address] | | | | | [address] | | | | | | [phone] | | | +--------+--------+ + + + [...] [place] | | | | | | [address] | | | | | | | | +--------+---------+ + + + as of this encounter Visit Diagnoses Not on filein this encounter"
--- OUTSIDE RECORDS SUMMARY | ~2019-02-26 | XMS | Encounter Summary ---
Demographics + + + | Address | [address] | | | [place] [address] | + + + | Home Phone [...] Providers + +------+ + | Care Pediatric Sports Medicine Specialist Name | Role | Phone | [...] | unspecified | [address] | Rd [place], | | | | | whether | [place], [place] | [place] | | | | | generalized | [address] | [address] | | | | | or | Phone: | Phone: | | | | | localized, | [phone] | [phone] | | | | | pelvic | Fax: | Fax: | | | | | region and | [phone] | [phone] | | | | | thigh | [...] PA-C | Arthroplasty) | | | | [facility] | | (Primary Dx) | | | | Mailcode: PV430 | | | | | | Physician's Terrence | | | | | | [place], [place] | | | | | | [address] | | | | | | [phone] | | | +--------+---------+ + + + [...] charted by JORDY Germain. KALYAN COLBY MD [facility] [address] [place] [address] Mailcode: Pv430 [place] [address] Tesfaye Haskins PA-C - 10/14/2008 [...] is being worked up now by a boiler testing technician for this issue. OBJECTIVE: - On [...]
--- OUTSIDE RECORDS SUMMARY | ~2019-02-26 | XMS | Encounter Summary ---
Demographics + + + | Address | [address] | | | [place] [address] | + + + | Home Phone [...] Providers + +------+ + | Care Corn Sheller Operator Name | Role | Phone | [...] Hip Replacement | | | | at [facility] 3rd Floor | | | | | | [address] | | | | | | [facility] | | | | | | [place], [place] | | | | | | [address] | | | | | | [phone] | | | +--------+------+ + + + [...] + + | [facility] DEPARTMENT OF | [facility] | [place] [address] | | | PATHOLOGY | [address] | | | + + + + + | [facility] DEPARTMENT OF | [address] [place] [address] | [place] [address] | | | PATHOLOGY | [address] [...] DEPARTMENT OF | [address] | [place] [address] | | | PATHOLOGY | [address] | | | + + + + + | [facility] DEPARTMENT OF | [address] | [place] [address] | | | PATHOLOGY | [address] [...] | [place] DEPARTMENT OF | [address] [facility] | [place] [address] | | | PATHOLOGY | [address] | | | + + + + + | [facility] DEPARTMENT OF | [address] [facility] | [place] [address] | | | PATHOLOGY | [address] [...] | [facility] | [address] [facility] | [place] [address] | | | PATHOLOGY | [address] | | | + + + + + | [facility] | [address] [facility] | [place] [address] | | | PATHOLOGY | [address] [...] ([facility]) | | | [facility] | | | [address] | | | [place] [address] | | + + + + + + + + | Performing | Address | City/State/Zipcode | Phone Number | | Organization | | | | + + + + + | [facility] | [address] | [place] [address] | | | LABORATORY | | | | + + + + + documented in this encounter Visit Diagnoses + + | Diagnosis | + + | Hip pain Pain in joint, pelvic region and thigh | + + | Hip replacement Hip joint replacement by other means | + + documented in this encounter"
--- OUTSIDE RECORDS SUMMARY | ~2019-02-26 | XMS | Encounter Summary ---
Demographics + + + | Address | [address] | | | [place] [address] | + + + | Home Phone [...] Providers + +------+ + | Care Post Splitter Name | Role | Phone | + [...] | | | unspecified | | Rd [place], | | | | | whether | | [place] | | | | | generalized | | [address] | | | | | or | | Phone: | | | | | localized, | | [phone] | | | | | pelvic | | Fax: | | | | | region and | | [phone] | | | | | thigh Pain [...] | | | [facility] | [facility] | reaction due to | | | | Mailcode: PV430 | [place], [place] | internal joint | | | | [facility] | [address] | prosthesis (HCC) | | | | [place], [place] | [phone] | (Primary Dx) | | | | [address] | | | | | | [phone] | | | +--------+---------+ + + + [...] has been indic ated for [facility] in [place], but they want the ok from [place]. [...] prn f/u here as she lives near [place]. d ocumented in this encounter Plan of [...]
--- OUTSIDE RECORDS SUMMARY | ~2019-02-26 | XMS | Encounter Summary ---
Demographics + + + | Address | [address] | | | [place] [address] | + + + | Home Phone [...] Team Providers + +------+ + | Care Under Baster Name | Role | Phone | + [...] | Floor [address] | [facility] | | | | | [facility] | [place] [address] | | | | | Mailcode: L457 | [phone] | | | | | Physicians Terrence | | | | | | [place], [place] | | | | | | [address] | | | | | | [phone] | | | +--------+ + + + [...] CELL | 7.8 | K/cu mm | [facility] | | | COUNT | | | MEDICAL | | | | | | CENTER - | | | | | | [place] | | + +-------+ + + + | RED CELL | 4.86 | M/cu mm | [facility] | | | COUNT | | | MEDICAL | | | | | | [facility] - | | | | | | [place] | | + +-------+ + + + | HEMOGLOBIN | 14.1 | 121999 - 15 | [facility] | | | | | g/dL | MEDICAL | | | | | | C[facility] - | | | | | | [place] | | + +-------+ + + + | HEMATOCRIT | 41.2 | % | [facility] | | | | | | MEDICAL | | | | | | [facility] - | | | | | | [place] | | + +-------+ + + + | MCV | 85 | fL | [facility] | | | | | | MEDICAL | | | | | | [facility] - | | | | | | [place] | | + +-------+ + + + | MCH | 29 | pg | [facility] | | | | | | MEDICAL | | | | | | [facility] - | | | | | | [place] | | + +-------+ + + + | MCHC | 34.2 | g/dL | [facility] | | | | | | MEDICAL | | | | | | [facility] - | | | | | | [place] | | + +-------+ + + + | PLATELET | 367 | K/cu mm | [facility] | | | COUNT | | | MEDICAL | | | | | | [facility]ENTER - | | | | | | [place] | | + +-------+ + + + | NEUTROPHIL | 59.2 | % | [facility] | | | % | | | MEDICAL | | | | | | [facility] - | | | | | | [place] | | + +-------+ + + + | LYMPHOCYTE | 32.5 | % | [facility] | | | % | | | MEDICAL | | | | | | [facility] - | | | | | | [place] | | + +-------+ + + + | MONOCYTE % | 6.1 | % | [facility] | | | | | | MEDICAL | | | | | | [facility] - | | | | | | [place] | | + +-------+ + + + | EOS % | 1.5 | % | [facility] | | | | | | MEDICAL | | | | | | [facility] - | | | | | | [place] | | + +-------+ + + + | BASO % | 0.7 | % | [facility] | | | | | | MEDICAL | | | | | | [facility] - | | | | | | [place] | | + +-------+ + + + | RDW | 14.5 | % | [facility] | | | | | | MEDICAL | | | | | | [facility] - | | | | | | [place] | | + +-------+ + + + | MPV | | fL | [facility] | | | | | | MEDICAL | | | | | | [facility] - | | | | | | [place] | | + +-------+ + + + | NEUTROPHIL | 4.6 | K/cu mm | [facility] | | | # | | | MEDICAL | | | | | | [facility] - | | | | | | [place] | | + +-------+ + + + | LYMPHOCYTE | 2.5 | K/cu mm | [facility] | | | # | | | MEDICAL | | | | | | [facility] - | | | | | | [place] | | + +-------+ + + + | MONOCYTE # | 0.5 | K/cu mm | [facility] | | | | | | MEDICAL | | | | | | [facility] - | | | | | | [place] | | + +-------+ + + + | EOS # | 0.1 | K/cu mm | [facility] | | | | | | MEDICAL | | | | | | [facility]ENTER - | | | | | | [place] | | + +-------+ + + + | BASO # | 0.1 | | [facility] | | | | | | MEDICAL | | | | | | CENTER - | | | | | | [place] | | + +-------+ + + + | PHOSPHORUS, | 3.9 | mg/dL | [facility] | | | PLASMA | | | [...] | + + + + + | [facility] | [address] | [place] [address] | | | [place] | | | | + + + + + COMPLETE METABOLIC SET (NA,K,CL,CO2,BUN,CREAT,GLUC,CA,AST,ALT,BILI TOTAL,ALK PHOS,ALB,PROT TOTAL) (03/01/2011 9:55 AM PDT) + +-------+ + + + | Component | Value | Ref Range | Performed | Pathologist | | | | | At | Signature | + +-------+ + + + | GLUCOSE, | 106 | 65 - 110 mg/dL | [facility] | | | PLASMA | | | MEDICAL | | | (LAB) | | | CENTER - | | | | | | [place] | | + +-------+ + + + | BUN, PLASMA | 10 | mg/dL | [facility] | | | (LAB) | | | MEDICAL | | | | | | CENTER - | | | | | | [place] | | + +-------+ + + + | CREATININE | 0.7 | mg/dL | [facility] | | | PLASMA | | | MEDICAL | | | (LAB) | | | CENTER - | | | | | | [place] | | + +-------+ + + + | TOTAL | 7.4 | g/dL | [facility] | | | PROTEIN, | | | MEDICAL | | | PLASMA | | | CENTER - | | | (LAB) | | | [place] | | + +-------+ + + + | ALBUMIN, | 3.8 | g/dL | [facility] | | | PLASMA | | | MEDICAL | | | (LAB) | | | CENTER - | | | | | | [place] | | + +-------+ + + + | CALCIUM, | 9.2 | mg/dL | [facility] | | | PLASMA | | | MEDICAL | | | (LAB) | | | CENTER - | | | | | | [place] | | + +-------+ + + + | BILIRUBIN | 0.3 | Transcutaneous | [facility] | | | TOTAL | | Bilirubinometer | MEDICAL | | | | | | CENTER - | | | | | | [place] | | + +-------+ + + + | ALK PHOS | 72 | U/L | [facility] | | | | | | MEDICAL | | | | | | CENTER - | | | | | | [place] | | + +-------+ + + + | AST(SGOT) | 10 | U/L | [facility] | | | | | | MEDICAL | | | | | | CENTER - | | | | | | [place] | | + +-------+ + + + | SODIUM, | 141 | mmol/L | [facility] | | | PLASMA | | | MEDICAL | | | (LAB) | | | CENTER - | | | | | | [place] | | + +-------+ + + + | POTASSIUM, | 4.4 | mmol/L | [facility] | | | PLASMA | | | MEDICAL | | | (LAB) | | | CENTER - | | | | | | [place] | | + +-------+ + + + | CHLORIDE, | 107 | mmol/L | [facility] | | | PLASMA | | | MEDICAL | | | (LAB) | | | CENTER - | | | | | | [place] | | + +-------+ + + + | TOTAL CO2, | 30 | mmol/L | [facility] | | | PLASMA | | | MEDICAL | | | (LAB) | | | CENTER - | | | | | | [place] | | + +-------+ + + + | ALT (SGPT) | 14 | U/L | [facility] | | | | | | MEDICAL | | | | | | CENTER - | | | | | | [place] | | + +-------+ + + + | SEDIMENTATI | 29 | mm/hr | [facility] | | | ON RATE | | [...] | + + + + + | [facility] | [address] | [place] [address] | | | [facility]ENTER - [place] | | | | + + + + + documented in this encounter Visit Diagnoses Not on filedocumented in this encounter"
--- OUTSIDE RECORDS SUMMARY | ~2019-02-26 | XMS | Encounter Summary ---
Demographics + + + | Address | [address] | | | [place] [address] | + + + | Home Phone [...] Providers + +------+ + | Care Accounting Director Name | Role | Phone | [...] [address] | | | | | [facility] | [facility] | | | | | Mailcode: PV430 | [place], [place] | | | | | [facility] | [address] | | | | | [place], [place] | [phone] | | | | | [address] | | | | | | [phone] | | | +--------+ + + + [...]
--- OUTSIDE RECORDS SUMMARY | ~2019-02-26 | XMS | Encounter Summary ---
Demographics + + + | Address | [address] | | | [place] [address] | + + + | Home Phone [...] Team Providers + +------+ + | Care Fork Operator Name | Role | Phone | [...] Ocampo | | | | | | [place], [place] | | | | | | [address] | | | | | | [phone] | | | +--------+ + + + [...] | | | | | | obtained. Machinery Mover AP | | | | | | [...] | | | | | | FINDINGS: Machinery Mover | | | | | | images [...] | | | | | | obtained. Machinery Mover AP | | | | | | [...] | | | | | | FINDINGS: Machinery Mover | | | | | | images [...]
--- OUTSIDE RECORDS SUMMARY | ~2019-02-26 | XMS | Encounter Summary ---
Demographics + + + | Address | [address] | | | [place] [address] | + + + | Home Phone [...] Team Providers + +------+ + | Care Capsule Machine Operator Name | Role | Phone [...] | | Dx) | | | | [facility] | | | | | | Mailcode: UHN65 | | | | | | Rose Ocampo | | | | | | [address] [place], [place] | | | | | | [address] | | | | | | [phone] | | | +--------+---------+ + + + [...] + + + + | PRODUCT | [id number] | | [facility] | | | UNIT [...] OF | [address] | [place] [address] | | | PATHOLOGY | [address] | | | + + + + + | [facility] DEPARTMENT OF | [address] | [place] [address] | | | PATHOLOGY | [address] [...] Performed At | + + + | [id number] Estimated GFR > 60 mL/min/1.73 sq m if non- | [facility] | | Gabones[place] 112949 Estimated GFR > 60 mL/min/1.73 sq m if | DEPARTMENT OF | | [place] GFR is estimated using the MDRD equation [...] [facility] DEPARTMENT OF | [address] | [place] [address] | | | PATHOLOGY | [address] | | | + + + + + | [facility] | [facility] | [place] [address] | | | PATHOLOGY | [address] [...] | [facility] | [address] [facility] | [place] [address] | | | PATHOLOGY | [address] | | | + + + + + | [facility] | [address] [facility] | [place] [address] | | | PATHOLOGY | [address] [...] | [facility] | [address] | [place] [address] | | | PATHOLOGY | [address] | | | + + + + + | [facility] | [address] | [place] [address] | | | PATHOLOGY | [address] [...] view image for the detailed interpretation from [employer] results. | CARDIOLOGY | | | | + + + + + + + + | Performing | Address | City/State/Zipcode | Phone Number | | Organization | | | | + + + + + | [facility] DEPT OF | [address] | [place], [place] | | | CARDIOLOGY | [address] | [address] | | + + + + + | [facility] | [address] | [place], [place] | | | CARDIOLOGY | [address] | [address] | | + + + + + documented in this encounter Visit Diagnoses + + | Diagnosis | + + | Other specified pre-operative examination - Primary | + + documented in this encounter
--- OUTSIDE RECORDS SUMMARY | ~2019-02-26 | XMS | Encounter Summary ---
Demographics + + + | Address | [address] | | | [place] [address] | + + + | Home Phone [...] Team Providers + +------+ + | Care Flask Maker Name | Role | Phone | [...] | | | is of hip | [facility] | [facility] | | | | | Procedures | Rd | Rd [place], | | | | | CONSULT TO | [place], [place] | [place] [address] | | | | | ORTHOPEDICS | [address] | | | | | | AND [...] Hip (Primary Dx) | | | | [facility] Road | Roxann Ayala [place], | | | | | Mailcode: PV430 | [place] [address] | | | | | [facility] | | | | | | [place], [place] | | | | | | [address] | | | | | | [phone] | | | +--------+---------+ + + + [...] as of this encounter Progress Notes Interface, Proprietary Trader In - 10/05/2006 2:33 AM PST [id number] CHAD Osie [id number] Clinic Date: 10/02/2006 Clinic: Orthopaedics Shelby Galdamez [...] Acevedo. Gino Baker M.D. KEE / SALEEM [id number] / [id number] / [id number] / [id number] cc: Quintin [place] Electronically signed by Gino [...]
--- OUTSIDE RECORDS SUMMARY | ~2019-02-26 | XMS | Encounter Summary ---
Demographics + + + | Address | [address] | | | [place] [address] | + + + | Home Phone [...] Providers + +------+ + | Care Building Services Coordinator Name | Role | Phone [...] as of this encounter Progress Notes Interface, Cloth Laminating Supervisor In - 02/27/2006 3:05 AM PDTClinic Date: [...] M.D. Lloyd Garcia M.D. RT / HS [id number] / [id number] / [id number] / [id number] [place], Cloth Laminating Supervisor In - 02/27/2006 3:05 AM PDTClinic Date: [...] is any deep infection. Lloyd Garcia M.D. Server Systems Administrator [facility] Jackelyn A [phone] cc: Ninfa Barrientos MD [address] [place] [id number] signed by Interface, Cloth Laminating Supervisor In at 6 3:05 AM PDTdocumented in this encounter Plan of Treatment Not on filedocumented as of this encounter Visit Diagnoses Not on filedocumented in this encounter"
--- OUTSIDE RECORDS SUMMARY | ~2019-02-26 | XMS | Encounter Summary ---
Demographics + + + | Address | [address] | | | [place] [address] | + + + | Home Phone [...] Providers + +------+ + | Care Wire Inserter Name | Role | Phone | [...] of this encounter Progress Notes Interface, System Programmer In - 04/28/2005 10:57 PM PDTClinic Date: [...] longer any fluid pocket. Lloyd Garcia M.D. Finished Cigar Maker, Orthopedics [facility] Rehabilitation / [id number] / [id number] / [id number] / [id number] cc: Everett Ibrahim MD [address] [place], [place] [id number] signed by Interface, System Programmer In at 04/28/2005 10:57 PM PDTdocumented in this encounter Plan of Treatment Not on filedocumented as of this encounter Visit Diagnoses Not on filedocumented in this encounter"
--- OUTSIDE RECORDS SUMMARY | ~2019-02-26 | XMS | Encounter Summary ---
Demographics + + + | Address | [address] | | | [place] [address] | + + + | Home Phone [...] Providers + +------+ + | Care Sales Office Manager Name | Role | Phone [...] [address] | | | | | [facility] | [facility] | | | | | Mailcode: PV430 | [place], [place] | | | | | [facility] | [address] | | | | | [place], [place] | [phone] | | | | | [address] | | | | | | [phone] | | | +--------+ + + + [...]
--- OUTSIDE RECORDS SUMMARY | ~2019-02-26 | XMS | Encounter Summary ---
Demographics + + + | Address | [address] | | | [place] [address] | + + + | Home Phone [...] Team Providers + +------+ + | Care Transcribing Machine Operator Name | Role | Phone [...] 2008 | | [facility] [address] [facility] | [address] | | | | | [facility] | [facility] | | | | | Mailcode: PV430 | [place], [place] | | | | | [facility] | [address] | | | | | [place], [place] | [phone] | | | | | [address] | | | | | | [phone] | | | +--------+ + + + [...]
--- OUTSIDE RECORDS SUMMARY | ~2019-02-26 | XMS | Encounter Summary ---
Demographics + + + | Address | [address] | | | [place] [address] | + + + | Home Phone | | + + + | Preferred Language | Unknown | + + + | Marital Status | Single | + + + | Taoist Affiliation | Unknown | + + + | Race | Unknown | + + + | Ethnic Group | Unknown | + + + Author + + + | Author | [facility] | + + + | Organization | [facility] | + + + | Address | Unknown | + + + | Phone | Unavailable | + + + Support + + +---------+ + | Name | Relationship | Address | Phone | + + +---------+ + | Kristel Teresa | ECON | Unknown | | + + +---------+ + Care Team Providers + +------+ + | Care Ferry Terminal Agent Name | Role | Phone | [...] Required | Medicine / | Radiculopath | 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 PRODUCTION MACHINE OPERATOR [address] | | | | Dolorology | y of lumbar | [address] | DR [address] | | | | | region | [address] | [place], [place] | | | | | Osteoarthrit | [place] | [address] Phone: | | | | | is of lumbar | [address] | [phone] | | | | | spine, | Phone: | Fax: | | | | | unspecified | [phone] | [phone] | | | | | spinal | Fax: | | | | | | osteoarthrit | [phone] | | | | | | is [...] + + | 01/29/ | Office | [facility] | Xiang Sepulveda, | Radiculopathy of | | 2019 | Visit | [facility] | DO [address] | lumbar region | | | | [address] | [facility] | (Primary Dx); Facet | | | | [place] | [address] | arthropathy, lumbar; | | | | [address] | | Osteoarthritis of | | | | [phone] | | lumbar spine, | | | [...] therapy, mass age therapy, acupuncture, health care facilities inspector, along with recommended psychological counseling , either privately, or in group sessions offered by private care individuals, community serv ices, or roman catholic organizations. Appropriate referrals were made at [...] plan, Will return to office in 8weeks, [facility] ORTHOTICS PROSTHETICS ASSISTANT was consulted and appears appropriate, Urine Toxicology [...] and complications with the passage of time. 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
--- OUTSIDE RECORDS SUMMARY | ~2019-02-26 | XMS | Encounter Summary ---
Demographics + + + | Address | [address] | | | [place] [address] | + + + | Home Phone [...] Team Providers + +------+ + | Care Balancer Scale Name | Role | Phone | + +------+ + PCP | Unavailable | + +------+ + Encounter Details +--------+ + + + + | Date | Type | Department | Care Team | Description | +--------+ + + + + | 02/19/ | Results | Orthopaedics at | Lloyd Garcia MD | | | 2001 | Only | [facility] [address] | | | | | | [facility] | | | | | | Mailcode: PV430 | | | | | | Physician'yokasta Ocampo | | | | | | [place], [place] | | | | | | [address] | | | | | | [phone] | | | +--------+ + + + [...]
--- OUTSIDE RECORDS SUMMARY | ~2019-02-26 | XMS | Encounter Summary ---
Demographics + + + | Address | [address] | | | [place] [address] | + + + | Home Phone [...] Providers + +------+ + | Care President And Chief Executive Officer Name | Role | Phone | + +------+ + | Marta Jenkins SENIOR LINUX SYSTEMS ENGINEER | PCP | | + +------+ [...] | Roxann Cadet Mailcode: | [address] [place], | | | | | [address] [place], [place] | [place] [address] | | | | | [address] | | | | | | [phone] | | | +--------+ + + + [...] | + + + + + | [facility] | [address] | [place] [address] | | | LAB-MICRO | | | [...] | | | | | performed at [facility] | | | | | | [place] [...] | + + + + + | [facility] | [address] | [place] [address] | | | LAB-MICRO | | | [...] | + + + + + | [facility] | [address] | [place] [address] | | | LAB-MICRO | | | [...] + + + | [facility] | [address] | [place] [address] | | | LAB-MICRO | | | [...] + + + | [facility] | [address] | [place] [address] | | | LAB-MICRO | | | [...] | | | | | performed at [facility] | | | | | | [place] [...] | + + + + + | [facility] | [address] | [place] [address] | | | LAB-MICRO | | | [...] at | | | | | | [facility] | | | | | | [facility]. | | | | + + + + + + + + | Specimen | + + | | + + + + + + + | Performing | Address | City/State/Zipcode | Phone Number | | Organization | | | | + + + + + | [facility] | [address] | [place] [address] | | | LAB-MICRO | | | [...] | | | | | performed at [place] | | | | | | [place] [...] + + + | [facility] | [address] | [place] [address] | | | LAB-MICRO | | | [...] + + + | [facility] | [address] | [place] [address] | | | LAB-MICRO | | | [...] | + + + + + | [facility] | [address] | [place] [address] | | | LAB-MICRO | | | [...] | + + + + + | [facility] | [address] | [place] [address] | | | LAB-MICRO | | | [...] | | | | | performed at [facility] | | | | | | [place] [...] + + + | [facility] | [address] | [place] [address] | | | LAB-MICRO | | | [...] + + + | [facility] | [address] | [place] [address] | | | LAB-MICRO | | | [...] | | | | | performed at [facility] | | | | | | [place] [...] | + + + + + | [facility] | [address] | [place] [address] | | | LAB-MICRO | | | | + + + + + documented in this encounter Visit Diagnoses Not on filedocumented in this encounter"
--- OUTSIDE RECORDS SUMMARY | ~2019-02-26 | XMS | Encounter Summary ---
Demographics + + + | Address | [address] | | | [place] [address] | + + + | Home Phone [...] Team Providers + +------+ + | Care R&D Engineer Name | Role | Phone | [...] | | | | CT INJ | [address] | Road | | | | | SACRO[place] | [place], [place] | Mailcode: | | | | | [place] | [address] | [address] [facility] | | | | | W/NEEDLE | Phone: | Hospital | | | | | [facility] | [phone] | [facility] [place] | | | | | | Fax: | [address] | | | | | | [phone] | Phone: | | | | | | | [phone] | | | | | | | Fax: | | | | | | | [phone] | +--------+--------+ + + + + Diagnostic [...] | | Procedures | [address] | [facility] | | | | | CT INJ | [address] | Road | | | | | SACROILIAC | [facility] [place] | Mailcode: | | | | | [place] | [address] | [address] [facility] | | | | | W/NEEDLE | Phone: | Hospital | | | | | PLCMT | [phone] | [facility] [place] | | | | | | Fax: | [address] | | | | | | [phone] | Phone: | | | | | | | [phone] | | | | | | | Fax: | | | | | | | [phone] | +--------+--------+ + + + + Encounter Details +--------+ + + + + | Date | Type | Department | Care Team | Description | +--------+ + + + + | 10/12/ | Hospital | Diagnostic Imaging | | | | 2009 | Encounter | Services at [facility] | | | | | | [address] [facility] | | | | | | [facility] | | | | | | Mailcode: [address] [facility] | | | | | | [facility], | | | | | | [place] [address] | | | | | | [phone] | | | +--------+ + + + [...] | | | | | | staff. Curator [employer] imaging | | | | | | [...]
--- OUTSIDE RECORDS SUMMARY | ~2019-02-26 | XMS | Encounter Summary ---
Demographics + + + | Address | [address] | | | [place] [address] | + + + | Home Phone [...] Team Providers + +------+ + | Care Silverer Name | Role | Phone | + [...] as of this encounter Progress Notes Interface, Street Roller Engineer In - 06/11/2006 3:03 AM PDT [place] [facility] [place] [address] [place], [place] [address] FAX Department of Orthopaedics, [facility] [id number] November 27, [address] [facility]-Orthopedics [address] RE: SHELBY GALDAMEZ MR [...] the low back several years ago in [place], [place] which she described as showing deteriorating vertebrae at "T11-T12." She has not had any physical therapy for back. She does work out at a gym under the direction of physical therapy in [place]. She would like to start some exercises [...] contact me. Sincerely yours, Vince Krishna M.D. [facility] / [id number] / [id number] / [id number] / [id number] cc: Lloyd Garcia M.D. Orthopedics PV 430 docume nted in this encounter Plan of Treatment Not on filedocumented as of this encounter Visit Diagnoses Not on filedocumented in this encounter
--- OUTSIDE RECORDS SUMMARY | ~2019-02-26 | XMS | Encounter Summary ---
Demographics + + + | Address | [address] | | | [place] [address] | + + + | Home Phone [...] of this encounter Progress Notes Interface, Field Marketing Lead In - 07/14/2006 1:10 AM PDTCLINIC DATE: [...] in the system. Dariana Champion M.A. / [id number] / [id number] / [id number] / Watt Field Marketing Lead In - 07/10/2006 1:00 AM PDTCLINIC DATE: [...] insurance at and spoke with Timbo. This insurance claims representative stated that this prescription had been [...] over the phone. Dariana Champion M.A. / [id number] / [id number] / [id number] / Tdocumented in this encounter Plan of Treatment Not on filedocumented as of this encounter Visit Diagnoses Not on filedocumented in this encounter"
--- OUTSIDE RECORDS SUMMARY | ~2019-02-26 | XMS | Encounter Summary ---
Demographics + + + | Address | [address] | | | [place] [address] | + + + | Home Phone [...] Team Providers + +------+ + | Care Live Hanger Name | Role | Phone | [...]
--- OUTSIDE RECORDS SUMMARY | ~2019-02-26 | XMS | Encounter Summary ---
Demographics + + + | Address | [address] | | | [place] [address] | + + + | Home Phone [...] Team Providers + +------+ + | Care Meat Team Member Name | Role | Phone [...] of this encounter Progress Notes Interface, Head Field Hockey Coach In - 04/28/2005 6:17 PM PDTClinic Date: [...] see us. She instead went to the [facility] emergency department, where she was seen [...] a chance to get back home to [place]. We will call her tomorrow and reiterate how important it is that we take care of this fluid collection in her hip and try to get her better. Dori Wong. Lloyd Garcia M.D. Attending Physician /jamil P [id number] signed by Interface, Head Field Hockey Coach In at 04/28/2005 6:17 PM PDTdoc umented in this encounter Plan of Treatment Not on filedocumented as of this encounter Visit Diagnoses Not on filedocumented in this encounter"
--- OUTSIDE RECORDS SUMMARY | ~2019-02-26 | XMS | Encounter Summary ---
Demographics + + + | Address | [address] | | | [place] [address] | + + + | Home Phone [...] Providers + +------+ + | Care Flight Operation Coordinator Name | Role | Phone | + +------+ + | Marta Jenkins SHOE STOCK ASSOCIATE | PCP | | + +------+ [...] | Roxann Cadet Mailcode: | [address] [place], | | | | | [address] [place], [place] | [place] [address] | | | | | [address] | | | | | | [phone] | | | +--------+ + + + [...]
--- OUTSIDE RECORDS SUMMARY | ~2019-02-26 | XMS | Encounter Summary ---
Demographics + + + | Address | [address] | | | [place] [address] | + + + | Home Phone [...] + +------+ + | Care Director Of Medical Education Name | Role | Phone | + +------+ + | No Pcp Per Patient | PCP | Unavailable | + +------+ + Encounter Details +--------+ + + + + | Date | Type | Department | Care Team | Description | +--------+ + + + + | 12/16/ | Hospital | Diagnostic | | | | 2008 | Encounter | Radiology at [facility] | | | | | | [address] [facility] | | | | | | [facility] | | | | | | Mailcode: [address] | | | | | | [address] | | | | | | [place], [place] | | | | | | [address] | | | | | | [phone] | | | +--------+ + + + [...]
--- OUTSIDE RECORDS SUMMARY | ~2019-02-26 | XMS | Encounter Summary ---
Demographics + + + | Address | [address] | | | [place] [address] | + + + | Home Phone [...] Providers + +------+ + | Care Network Coordinator Name | Role | Phone | [...] as of this encounter Progress Notes Interface, Mold Shifter In - 08/28/2006 3:05 AM PSTCLINIC DATE: [...] clinical evaluation. Benson Cooper M.D. / SALEEM [id number] / [id number] / [id number] / cc: Lloyd Garcia M.D. documented in this encounter Plan of Treatment Not on filedocumented as of this encounter Visit Diagnoses Not on filedocumented in this encounter"
--- OUTSIDE RECORDS SUMMARY | ~2019-02-26 | XMS | Encounter Summary ---
Demographics + + + | Address | [address] | | | [place] [address] | + + + | Home Phone [...] Providers + +------+ + | Care Customer Program Specialist Name | Role | Phone [...] | | y | Pankaj Bergman | [facility] | | | | | Procedures | Roxann | Mailcode: | | | | | MRI SPINE | [place], [place] | [address] | | | | | [address] | [address] | Luigi | | | | | CONT | Phone: | Research | | | | | | [phone] | [place] | | | | | | Fax: | [place], [place] | | | | | | [phone] | [address] | | | | | | | Phone: | | | | | | | [phone] | | | | | | | Fax: | | | | | | | [phone] | +--------+--------+ + + + + Encounter Details +--------+ + + + + | Date | Type | Department | Care Team | Description | +--------+ + + + + | 08/03/ | Hospital | Diagnostic Imaging | | | | 2009 | Encounter | Services at [facility] | | | | | | [address] [facility] | | | | | | [facility] | | | | | | Mailcode: [address] | | | | | | [facility] | | | | | | [place], [place] | | | | | | [address] | | | | | | [phone] | | | +--------+ + + + [...] + + + +---------+ + + | [place]-[facility] Fatty | Take by mouth. | | [...] | | | | | | of Z5vstebsxm/superior | | | | | | corner, [...]
--- OUTSIDE RECORDS SUMMARY | ~2019-02-26 | XMS | Encounter Summary ---
Demographics + + + | Address | [address] | | | [place] [address] | + + + | Home Phone [...] Team Providers + +------+ + | Care Fur Tailor Name | Role | Phone | + [...] of this encounter Progress Notes Interface, Field Support Technician In - 04/28/2005 6:17 PM PDTClinic Date: [...] presence of her friend and my physician chemistry research assistant and resident here in the Orthopedic [...] as soon as possible. Lloyd Garcia M.D. Lighting Designer of Orthopedics and Rehabilitation / [id number] / [id number] / [id number] / [id number] Tdocumented in this encounter Plan of Treatment Not on filedocumented as of this encounter Visit Diagnoses Not on filedocumented in this encounter
--- OUTSIDE RECORDS SUMMARY | ~2019-02-26 | XMS | Encounter Summary ---
Demographics + + + | Address | [address] | | | [place] [address] | + + + | Home Phone [...] Providers + +------+ + | Care Therapeutic Riding Instructor Name | Role | Phone | [...] as of this encounter Progress Notes Interface, Motorcycle Tester In - 08/16/2006 1:10 AM PSTCLINIC DATE: [...] be requiring surgical intervention. Lloyd Garcia M.D. Optical Fabricator of Orthopedics and Rehabilitation / [id number] / [id number] / [id number] / cc: Helio Noland M.D. Juan JoseJuan Jose [place], [place] [id number] signed by Interface, Motorcycle Tester In at 08/16/2006 1: 10 AM PSTdocumented in this encounter Plan of Treatment Not on filedocumented as of this encounter Visit Diagnoses Not on filedocumented in this encounter"
[~2019-02-26 08:01] MED LIST changes: +CIPRO500 MG PO; +FLAGYL500 MG PO
--- OUTSIDE RECORDS SUMMARY | 2019-02-26 08:04 | XMS ---
PreManage Notification: CHASTITY BONILLA Security Assurance Services Manager Health Care Events 1 event(s) in the past 18 months Most recent security events: Verbal at [facility] 06/24/2018 19:26 - Patient was verbally abusive towards care providers, staff or patient. Details: PATIENT IS VERBALLY ABUSIVE TOWARDS STAFF AND PATHOLOGY ASSISTANT CRITERIA MET - Group Notification - [facility] - Has Care Guidelines - PDMP - [facility] - 2 Visits in 30 Days CARE PROVIDERS ALANIS AGUILA [facility] 02/02/2019-Current PHONE: [phone] SERGIO ISSA Nurse Practitioner Current PHONE: [phone] Cindy Herrera Executive Candidate Developer/Front Edger 07/31/2013-Current PHONE: [phone] DANIELAYAN, Family Medicine 06/23/2018-Mihai Cardona PHONE: Unknown ED[facility] PORRAS Primary [facility] 08/30/2017-Current PHONE: [phone] Cindy Herrera [facility] 07/31/2013-Current PHONE: [phone] Eyad Vicente Current PHONE: Unknown Guidelines Source: [facility] Guidelines Date: 01/22/2018 Care Coordination: PATIENT HAS NEW PCP - EDIS PORRAS AT [place] [place]. PATIENT WAS DISCHARGED FROM PAIN CONTRACT [...] SERVICES TO SEE PATIENT. Care History Medical/Surgical 02/05/2019 [facility] - [facility] REFERRAL [facility]- [facility] TO HELP PATIENT WITH CHRONIC PAIN CONDITION. 06/25/2018 [facility] - Pain Clinic Management- [facility]- [facility] Bess [facility] PCP. - Provider will discuss with patient about custodial placement. - PATIENT HAS A PCP APT @ 1:00 06/25/18. - PATIENT IS CURRENTLY PRESCRIBED 5/235 PERCOCET FOR EVERY 8 HOURS PER PAIN MANAGEMENT CLINIC. 06/24/2018 [facility] - PATIENT CALLED PCP OFFICE [...] BE CAUTIOUS PATIENT TESTS POSITIVE FOR METHAMPHETAMINES. Social 12/26/2017 [facility] - Patient has been discharged from [facility] services due to not following through with any help and or services. - Patient admits to marijuana usage, please take this into consideration when providing treatment for nausea/stomach upset (clinical judgement) - Patient currently receives caregivers through [facility]- [facility] case packer and sealer is Willa. Substance Use/Overdose 11/27/2016 [facility] UPDATE BY PCP: PATIENT HAS FAILED 3 DRUG SCREENS INCLUDING POSITIVE FOR METHAMPHETAMINESIN A ROW AT PCP CLINIC. USE CAUTION WHEN GIVING NARCOTICS. AVOID HOME RX FOR NARCOTICS. CALL [facility] [phone] FOR RECOMMENDATIONS ON PAIN MEDS 10/24/2016 [facility] PT HAS HISTORY OF DRUG SEEKING BEHAVIOR. UNDER PAIN CONTRACT WITH PCP. PT DID NOT PASS RECENT RANDOM DRUG SCREEN WITH PCP. E.D. VISIT COUNT (12 MO.) 7 [facility] TOTAL 7 NOTE: Visits indicate total known visits. ED/UCC VISIT TRACKING (12 MO.) 02/26/2019 08:02 [facility] [place] TYPE: Emergency COMPLAINT: - SHOULDER,BACK,HIP PAIN/NO INJURY 02/04/2019 14:20 [facility] [place] TYPE: Emergency COMPLAINT: - WEAKNESS DIAGNOSES: - Major depressive disorder, single episode, unspecified - Allergy status to other drugs, medicaments and biological substances status - Pain in right hip - Allergy status to other antibiotic agents status - Diverticulitis of large intestine without perforation or abscess without bleeding - Allergy status to narcotic agent status - Chronic obstructive pulmonary disease, unspecified - [facility] (current) use of opiate analgesic - Nicotine dependence, unspecified, uncomplicated - Essential (primary) hypertension - Other termite control service representative (current) drug therapy 01/29/2019 01:11 [facility] [place] TYPE: Emergency COMPLAINT: - FALL DIAGNOSES: - Allergy status to other antibiotic agents status - Other chronic pain - Allergy status to narcotic agent status - Other penitentiary (current) drug therapy - Pain in left hip - Major depressive disorder, single episode, unspecified - Essential (primary) hypertension - Nicotine dependence, unspecified, uncomplicated - Wheezing - Unspecified fall, initial encounter - Urinary tract infection, site not specified - Chronic obstructive pulmonary disease, unspecified - [facility] (current) use of opiate analgesic - Pain [...] - Pain in left hip - Other termite control service representative (current) drug therapy - Low back pain - Allergy status to narcotic agent status - Essential (primary) hypertension 06/24/2018 19:26 [facility] [place] TYPE: Emergency DIAGNOSES: - Other penitentiary (current) drug therapy - Allergy status to [...] medicaments and biological substances status - Other penitentiary (current) drug therapy - Chronic obstructive pulmonary disease, unspecified - Essential (primary) hypertension - oysterman (current) use of inhaled steroids - Allergy status to other antibiotic agents status - Urinary tract infection, site not specified - Nicotine dependence, unspecified, uncomplicated - Major depressive disorder, single episode, unspecified - Other stimulant abuse, uncomplicated INPATIENT VISIT TRACKING (12 MO.) No inpatient visits to display in this time frame [email or web address]
== END 2019-02-26 09:45 | disposition home or self-care (01) ==
LOC: ED 08:01
DX: G89.29 Other chronic pain (principal); M25.552 Pain in left hip; M25.551 Pain in right hip; M25.511 Pain in right shoulder; M25.512 Pain in left shoulder; I10 Essential (primary) hypertension; J44.9 Chronic obstructive pulmonary disease, unspecified; Z87.891 Personal history of nicotine dependence; Z90.710 Acquired absence of both cervix and uterus; Z90.49 Acquired absence of other specified parts of digestive tract; Z88.1 Allergy status to other antibiotic agents; Z88.5 Allergy status to narcotic agent; Z88.8 Allergy status to other drugs, medicaments and biological substances; Z79.899 Other long term (current) drug therapy
CPT/HCPCS: 96374; 96375; 99283-25; J1885; J2405

== ENCOUNTER 2019-12-13 07:26 | Emergency (ER) | payer OTHER ==
[~2019-12-13] VITALS: Ht 162.6 cm; Wt 136.2 kg
[~2019-12-13 07:26] MED LIST changes: +AMLODIPINE BESY10 MG PO; +CEPHALEXIN500 MG PO; +ONDANSETRON ODT8 MG PO; +ROPINIROLE HC0.25 MG
[2019-12-13] MEDS ORDERED: NYSTOP60 GM TOP (09:11)
== END 2019-12-13 09:28 | disposition home or self-care (01) ==
LOC: ED 07:26
DX: S83.92XA Sprain of unspecified site of left knee, initial encounter (principal); V43.62XA Car passenger injured in collision with other type car in traffic accident, initial encounter; I10 Essential (primary) hypertension; F32.9 Major depressive disorder, single episode, unspecified; J44.9 Chronic obstructive pulmonary disease, unspecified; F17.200 Nicotine dependence, unspecified, uncomplicated; Z88.1 Allergy status to other antibiotic agents; Z88.5 Allergy status to narcotic agent; Z88.8 Allergy status to other drugs, medicaments and biological substances; Z79.891 Long term (current) use of opiate analgesic; Z79.899 Other long term (current) drug therapy
CPT/HCPCS: 73560; 99284-25

== ENCOUNTER 2019-12-17 17:01 | Emergency (ER) | payer OTHER ==
[~2019-12-17] VITALS: Ht 162.6 cm; Wt 136.2 kg
[2019-12-17] MEDS ORDERED: HYDROCODON-ACE1 EA10 PO (17:09)
[2019-12-17] MEDS ORDERED: AMLODIPINE BESYL5 MG PO (17:09)
[2019-12-17] MEDS ORDERED: BACTRIM DS TAB1 EACH PO (19:10)
== END 2019-12-17 19:30 | disposition home or self-care (01) ==
LOC: ED 17:01
DX: N30.00 Acute cystitis without hematuria (principal); F32.9 Major depressive disorder, single episode, unspecified; I10 Essential (primary) hypertension; J44.9 Chronic obstructive pulmonary disease, unspecified; F17.200 Nicotine dependence, unspecified, uncomplicated; Z87.442 Personal history of urinary calculi; Z90.710 Acquired absence of both cervix and uterus; Z90.49 Acquired absence of other specified parts of digestive tract; Z90.89 Acquired absence of other organs; Z88.1 Allergy status to other antibiotic agents; Z88.8 Allergy status to other drugs, medicaments and biological substances; Z88.5 Allergy status to narcotic agent; Z79.899 Other long term (current) drug therapy
CPT/HCPCS: 74177; 80053; 81001; 83690; 85025; 96375; 99284-25; J2405; J3010

== ENCOUNTER 2020-03-17 14:22 | Emergency (ER) | payer OTHER ==
[~2020-03-17] VITALS: Ht 162.6 cm; Wt 136.2 kg
[~2020-03-17 14:22] MED LIST changes: +AMLODIPINE BESYL5 MG PO; +HYDROCODON-ACE1 EA10 PO
[2020-03-17] MEDS ORDERED: NITROFURANTOIN100 M1 PO (14:35)
[2020-03-17] MEDS ORDERED: NAPROSYN500 MG PO (16:42)
[2020-03-17] MEDS ORDERED: LIDODERM1 EACH TD (16:43)
== END 2020-03-17 17:05 | disposition home or self-care (01) ==
LOC: ED 14:22
DX: M47.816 Spondylosis without myelopathy or radiculopathy, lumbar region (principal); I10 Essential (primary) hypertension; F32.9 Major depressive disorder, single episode, unspecified; J44.9 Chronic obstructive pulmonary disease, unspecified; F17.200 Nicotine dependence, unspecified, uncomplicated; Z88.1 Allergy status to other antibiotic agents; Z88.5 Allergy status to narcotic agent; Z88.8 Allergy status to other drugs, medicaments and biological substances; Z79.899 Other long term (current) drug therapy
CPT/HCPCS: 72131; 73700; 96372; 99284-25; J1885

== ENCOUNTER 2020-03-28 09:18 | Emergency (ER) | payer OTHER ==
[~2020-03-28] VITALS: Ht 162.6 cm; Wt 136.2 kg
--- OUTSIDE RECORDS SUMMARY | ~2020-03-28 | XMS | Encounter Summary ---
Demographics + + + | Address | [address] | | | [place] [address] | + + + | Home Phone | | + + + | Preferred Language | Unknown | + + + | Marital Status | Single | + + + | Voodoo Affiliation | PRE | + + + | Race | White | + + + | Ethnic Group | Not or | + + + Author + + + | Author | [facility] | + + + | Organization | [facility] | + + + | [...] Team Providers + +------+ + | Care Drafter Detail Name | Role | Phone | + +------+ + PCP | Unavailable | + +------+ + Encounter Details +--------+ + + + + | Date | Type | Department | Care Team | Description | +--------+ + + + + | 12/23/ | Runner Out | Orthopaedics at | Gino Baker MD | Osteoarthritis of | | 2006 | | [address] | [address] | Hip (Primary Dx) | | | | [address] | [address] [place] | | | | | Mailcode: PV[address] | [place] [address] | | | | | [facility] | | | | | | [place], [place] | | | | | | [address] | | | | | | [phone] | | | +--------+ + + + [...] | X-RAY ARTHROGRAM HIP | Routin | 12/30/2006 | Osteoarthritis of | Results for this | | RT | e | 3:47 PM | Hip | procedure are in the | | | | PDT | | results section. | + +--------+ + + + documented in this encounter Results ARTHROGRAM HIP RT (12/30/2006 3:47 PM PDT) + + + + + + | Component | Value | Ref Range | Performed | Pathologist | | | | | At | Signature | + + + + + + | ARTHROGRAM | Radiologist 1: TRIPP, | | | | | HIP RT | Raegan HERRERA, | | | | | | MJuan JoseDJuan JoseARTHROGRAM AND | | | | | | INJECTION OF THE RIGHT | | | | | | HIP.12/30/2006 | | | | | | Dictated 12/30/2006 | | | | | | COMPARISON: 06/11/2006 | | | | | | HISTORY: Patient with | | | | | | chronic right hip pain | | | | | | associated with | | | | | | advanceddegenerative | | | | | | joint disease and | | | | | | abundant heterotopic | | | | | | bone around theright | | | | | | hip. PROCEDURE: | | | | | | Procedure alternatives | | | | | | and risks were | | | | | | discussed with | | | | | | thepatient and all | | | | | | questions answered. | | | | | | Informed consent was | | | | | | signed priorto the | | | | | | procedure. Preliminary | | | | | | images of the hip show | | | | | | diffuse joint space | | | | | | narrowing withprominent | | | | | | articular sclerosis and | | | | | | large collar of | | | | | | osteophytes at thebase | | | | | | of the femoral neck. | | | | | | There are also some | | | | | | postoperative | | | | | | changeswith extensive | | | | | | periarticular | | | | | | heterotopic bone. | | | | | | Following sterile prep | | | | | | and drape and 2% | | | | | | Xylocaine local | | | | | | anesthetic, along | | | | | | 22-gauge spinal needle | | | | | | was advanced into the | | | | | | lateral aspect ofthe hip | | | | | | joint. Injection of | | | | | | approximately 3 cc of | | | | | | Omnipaque-300outlined a | | | | | | very tight joint capsule | | | | | | at the base of the | | | | | | femoral head.Findings | | | | | | are consistent with | | | | | | adhesive capsulitis. | | | | | | Further | | | | | | contrastinjection was | | | | | | not performed to permit | | | | | | adequate therapeutic | | | | | | injection. Subsequently, | | | | | | 2 cc Depo-Medrol (40 | | | | | | mg/cc) and 5 cc of 5% | | | | | | bupivacainewere injected | | | | | | into the hip. There | | | | | | was considerable | | | | | | resistance andsome pain | | | | | | related to the injection | | | | | | initially. The leg | | | | | | was put throughrange of | | | | | | motion and patient | | | | | | re-evaluated after she | | | | | | was dressed andwalked | | | | | | about. She reported | | | | | | nearly complete pain | | | | | | relief with improved | | | | | | range of motionof the | | | | | | right hip. She did | | | | | | have some persistent | | | | | | posterolateral painwith | | | | | | extension of the hip. | | | | | | IMPRESSION: 1. | | | | | | Advanced degenerative | | | | | | joint disease of the | | | | | | right hip with | | | | | | adhesivecapsulitis. 2. | | | | | | Near complete relief | | | | | | of patient's right hip | | | | | | pain | | | | | | followingDepo-Medrol and | | | | | | bupivacaine injection. | | | | | | END IMPRESSION: | | | | + + [...] + | Diagnosis | + + | Osteoarthritis of hip - Primary Osteoarthrosis, unspecified whether generalized or | | localized, pelvic region and thigh | + + documented in this encounter"
--- OUTSIDE RECORDS SUMMARY | ~2020-03-28 | XMS | Encounter Summary ---
Demographics + + + | Address | [address] | | | [place] [address] | + + + | Home Phone | | + + + | Preferred Language | Unknown | + + + | Marital Status | Single | + + + | Rastafarian Affiliation | PRE | + + + | Race | White | + + + | Ethnic Group | Not or | + + + Author + + + | Author | [facility] | + + + | Organization | [facility] | + + + | Address [...] Providers + +------+ + | Care Manager Validation Name | Role | Phone | + +------+ + | Marta Jenkins PLASTIC CNC MACHINE OPERATOR | PCP | | + +------+ + Encounter Details +--------+ + + + + | Date | Type | Department | Care Team | Description | +--------+ + + + + | 11/07/ | Ancillary | Registration [address] | Gino Baker MD | | | 2005 | Registratio | [address] | [address] | | | | n | Jamie Mailcode: [address] [place], | | | | | [place], [place] | [place] [address] | | | | | [address] | | | | | | [phone] | | | +--------+ + + + [...] | + +--------+ + + + | DIFFERENTIAL | Routin | 11/07/2005 | | Results for this | | | e | 10:24 AM | | procedure are in the | | | | PST | | results section. | + +--------+ + + + | CBC, WITH | Routin | 11/07/2005 | | Results for this | | DIFFERENTIAL | e | 10:24 AM | | procedure are in the | | | | PST | | results section. | + +--------+ + + + | SEDIMENTATION RATE | Routin | 11/07/2005 | | Results for this | | | e | 10:24 AM | | procedure are in the | | | | PST | | results section. | + +--------+ + + + | X-RAY PELVIS 1 VIEW | Routin | 11/07/2005 | | Results for this | | | e | 9:46 AM | | procedure are in the | | | | PST | | results section. | + +--------+ + + + documented in this encounter Results SEDIMENTATION RATE (11/07/2005 10:24 AM PST) + +-------+ + + + | Component | Value | Ref Range | Performed | Pathologist | | | | | At | Signature | + +-------+ + + + | SEDIMENTATI | 13 | <21 mm/hr | [facility] | | | ON RATE | | | DEPARTMENT | | | | | | OF | | | | | | PATHOLOGY | | + +-------+ + + + + + | Specimen | + + | | + + + + + + + | Performing | Address | City/State/Zipcode | Phone Number | | Organization | | | | + + + + + | [facility] | [address] | [place] [address] | | | PATHOLOGY | [address] | | | + + + + + | [facility] DEPARTMENT OF | [address] | [place] [address] | | | PATHOLOGY | [address] | | | + + + + + DIFFERENTIAL (11/07/2005 10:24 AM PST) + +-------+ + + + | Component | Value | Ref Range | Performed | Pathologist | | | | | At | Signature | + +-------+ + + + | NEUTROPHIL | 59 | 50 - 70 % | [facility] | | | % | | | DEPARTMENT | | | | | | OF | | | | | | PATHOLOGY | | + +-------+ + + + | LYMPHOCYTE | 33 | 18 - 42 % | [facility] | | | % | | | DEPARTMENT | | | | | | OF | | | | | | PATHOLOGY | | + +-------+ + + + | MONOCYTE % | 6 | 2 - 8 % | [facility] | | | | | | DEPARTMENT | | | | | | OF | | | | | | PATHOLOGY | | + +-------+ + + + | EOS % | 2 | 1 - 3 % | [facility] | | | | | | DEPARTMENT | | | | | | OF | | | | | | PATHOLOGY | | + +-------+ + + + | BASO % | 1 | <3 % | [facility] | | | | | | DEPARTMENT | | | | | | OF | | | | | | PATHOLOGY | | + +-------+ + + + | NEUTROPHIL | 5.5 | 1.8 - 7.7 K/cu | [facility] | | | # | | mm | DEPARTMENT | | | | | | OF | | | | | | PATHOLOGY | | + +-------+ + + + | LYMPHOCYTE | 3.1 | 1.0 - 4.8 K/cu | [facility] | | | # | | mm | DEPARTMENT | | | | | | OF | | | | | | PATHOLOGY | | + +-------+ + + + | MONOCYTE # | 0.6 | 0.1 - 0.6 K/cu | [facility] | | | | | mm | DEPARTMENT | | | | | | OF | | | | | | PATHOLOGY | | + +-------+ + + + | EOS # | 0.2 | <0.6 K/cu mm | [facility] | | | | | | DEPARTMENT | | | | | | OF | | | | | | PATHOLOGY | | + +-------+ + + + | BASO # | 0.1 | <0.3 | [facility] | | | | | | DEPARTMENT | | | | | | OF | | | | | | PATHOLOGY | | + +-------+ + + + + + | Specimen | + + | | + + + + + + + | Performing | Address | City/State/Zipcode | Phone Number | | Organization | | | | + + + + + | [facility] | [address] | [place] [address] | | | PATHOLOGY | [address] | | | + + + + + | [facility] | [address] [place] [address] [address] | [place] [address] | | | PATHOLOGY | [address] | | | + + + + + ANNE WITH DIFFERENTIAL (11/07/2005 10:24 AM PST) + +-------+ + + + | Component | Value | Ref Range | Performed | Pathologist | | | | | At | Signature | + +-------+ + + + | WHITE CELL | 9.4 | 4.4 - 11.0 K/cu | [facility] | | | COUNT | | mm | DEPARTMENT | | | | | | OF | | | | | | PATHOLOGY | | + +-------+ + + + | RED CELL | 4.71 | 4.00 - 5.20 | [facility] | | | COUNT | | M/cu mm | DEPARTMENT | | | | | | OF | | | | | | PATHOLOGY | | + +-------+ + + + | HEMOGLOBIN | 13.7 | 12.0 - 16.0 | [facility] | | | | | g/dL | DEPARTMENT | | | | | | OF | | | | | | PATHOLOGY | | + +-------+ + + + | HEMATOCRIT | 40.4 | 36.0 - 46.0 % | [facility] | | | | | | DEPARTMENT | | | | | | OF | | | | | | PATHOLOGY | | + +-------+ + + + | MCV | 85.6 | 80.0 - 96.0 fL | [facility] | | | | | | DEPARTMENT | | | | | | OF | | | | | | PATHOLOGY | | + +-------+ + + + | MCHC | 33.8 | 33.4 - 35.5 | [facility] | | | | | g/dL | DEPARTMENT | | | | | | OF | | | | | | PATHOLOGY | | + +-------+ + + + | RDW | 13.4 | 11.5 - 15.0 % | [facility] | | | | | | DEPARTMENT | | | | | | OF | | | | | | PATHOLOGY | | + +-------+ + + + | PLATELET | 393 | 150 - 400 K/cu | [facility] | | | COUNT | | mm | DEPARTMENT | | | | | | OF | | | | | | PATHOLOGY | | + +-------+ + + + + + | Specimen | + + | | + + + + + + + | Performing | Address | City/State/Zipcode | Phone Number | | Organization | | | | + + + + + | [facility] DEPARTMENT OF | [address] | [place] [address] | | | PATHOLOGY | [address] | | | + + + + + | [facility] DEPARTMENT OF | [address] | [place] [address] | | | PATHOLOGY | [address] | | | + + + + + PELVIS 1 VIEW (11/07/2005 9:46 AM PST) + + + + + + | Component | Value | Ref Range | Performed | Pathologist | | | | | At | Signature | + + + + + + | PELVIS 1 | Radiologist 1: | | | | | VIEW | MOSHE FLOWERS, | | | | | | M.D.-Radiologist 2: | | | | | | MOSHE FLOWERS, | | | | | | M.D.STUDY: A.P. pelvis | | | | | | COMPARISON: 11/18/03 | | | | | | FINDINGS: There is | | | | | | chronic deformity of the | | | | | | right proximal femur | | | | | | fromprior greater | | | | | | trochanteric osteotomy, | | | | | | removal of hardware | | | | | | andosteomyelitis. The | | | | | | changes of osteomyelitis | | | | | | have resolved. | | | | | | Heterotopicossification | | | | | | proximal to the femur | | | | | | has increased and | | | | | | matured. Medial joint | | | | | | space narrowing, | | | | | | subchondral sclerosisand | | | | | | osteophyte formation | | | | | | are again noted in the | | | | | | right hip. Theleft | | | | | | hip, symphysis pubis and | | | | | | SI joints are | | | | | | maintained. IMPRESSION: | | | | | | 1. Radiographically | | | | | | healed osteomyelitis and | | | | | | chronic | | | | | | postoperativechanges of | | | | | | the proximal right | | | | | | femur. 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 2. | | | | | | Stable medial | | | | | | osteoarthritis of right | | | | | | hip. | | | | + + + + + + + + | Specimen | + + | | + + + +---------+ + + | Performing | Address | City/State/Zipcode | Phone Number | | Organization | | | | + +---------+ + + | [facility] DEPARTMENT OF | | | | | RADIOLOGY | | | | + +---------+ + + documented in this encounter Visit Diagnoses Not on filedocumented in this encounter"
--- OUTSIDE RECORDS SUMMARY | ~2020-03-28 | XMS | Encounter Summary ---
Demographics + + + | Address | [address] | | | [place] [address] | + + + | Home Phone | | + + + | Preferred Language | Unknown | + + + | Marital Status | | + + + | Buddhist Affiliation | 1076 | + + + | Race | Unknown | + + + | Ethnic Group | Unknown | + + + Author + + + | Author | [facility] | | | and [place] | + + + | Organization | [facility] | | | and [place] | + + + | Address | Unknown | + + + | Phone | Unavailable | + + + Support + + +---------+ + | Name | Relationship | Address | Phone | + + +---------+ + | Kristel Teresa | ECON | Unknown | | + + +---------+ + Care Team Providers + +------+ + | Care Communications Media Professor Name | Role | Phone | + +------+ + | Jaimie Monreal MD | PCP | | + +------+ + Reason for Visit +---------+--------+ + | Reason | Onset | Comments | | | Date | | +---------+--------+ + | Results | 07/23/ | incorrect blood work done | | | 2019 | | +---------+--------+ + Encounter Details +--------+ + + + + | Date | Type | Department | Care Team | Description | +--------+ + + + + | 07/23/ | Telephone | [facility] | Kina Hendrix, | Results (incorrect | | 2019 | | [address] | Double Cut Off Saw Operator | blood work done) | | | | [address] [place], [place] | | | | | | [address] | | | | | | [phone] | | | +--------+ + + + + Social History + +-------+ +--------+------+ | Tobacco Use | Types | Packs/Day | Years | Date | | | | | Used | | + +-------+ +--------+------+ | Current Every Day | | 0.5 | 50 | | | Smoker | | | | | + +-------+ +--------+------+ + +---+---+---+ | Smokeless Tobacco: | | | | | Current User | | | | + +---+---+---+ + + | Comments: 1 pack daily | + + + + +---------+ + | Alcohol Use | Drinks/Week | oz/Week | Comments | + + +---------+ + | No | | | | + + +---------+ + + + + | Sex Assigned at | Date Recorded | | | | + + + | Not on file | | + + + documented as of this encounter Miscellaneous Notes Telephone Encounter - Kina Hendrix Double Cut Off Saw Operator - 07/23/2019 4:48 PM PDTCalled & spoke to patient to let her know per Dr. Medrano that the blood work she got done was not the correct ones that Dr. Medarno needed. I let her know she needed to go to [facility] lab to get her blood work done for Dr. Medrano. Also, let her know she did not need to redo th e CBC. In which patient stated "Well don't be surprised if I don't get them done until the 3 0th, because that's when I will be down for an appointment." I let her know that is alright, that she can get them done at her earliest convenience. documented in this encounter Plan of Treatment +--------+---------+ + + + | Date | Type | Specialty | Care Team | Description | +--------+---------+ + + + | 05/23/ | Office | Pain Medicine | Xiang Sepulveda, | | | 2019 | Visit | | DO [address] | | | | | | [place] | | | | | | [address] | | | | | | | | +--------+---------+ + + + documented as of this encounter Visit Diagnoses Not on filedocumented in this encounter
--- OUTSIDE RECORDS SUMMARY | ~2020-03-28 | XMS | Encounter Summary ---
Demographics + + + | Address | [address] | | | [place] [address] | + + + | Home Phone | | + + + | Preferred Language | Unknown | + + + | Marital Status | | + + + | Hindu Affiliation | 1076 | + + + | Race | Unknown | + + + | Ethnic Group | Unknown | + + + Author + + + | Author | [facility] | | | and [place] | + + + | Organization | [facility] | | | and [...] Team Providers + +------+ + | Care Hat Cleaner Name | Role | Phone | + +------+ + PCP | Unavailable | + +------+ + Encounter Details +--------+ + + + + | Date | Type | Department | Care Team | Description | +--------+ + + + + | 10/05/ | Hospital | [facility] | Lei Greenwood | | | 2010 | Encounter | MED CTR XRAY [address] | [address] | | | | | [address] | [address] [place] [place] | | | | | [place] [address] | [address] | | | | | [phone] | [phone] | | | | | | | +--------+ + + [...] as of this encounter Plan of Treatment +--------+---------+ + + + | Date | Type | Specialty | Care Team | Description | +--------+---------+ + + + | 05/23/ | Office | Pain Medicine | Xiang Sepulveda, | | | 2019 | Visit | | DO [address] | | | | | | [place] | | | | | | [id number] | | | | | | | | +--------+---------+ + + + documented as of this encounter Visit Diagnoses Not on filedocumented in this encounter"
--- OUTSIDE RECORDS SUMMARY | ~2020-03-28 | XMS | Encounter Summary ---
Demographics + + + | Address | [address] | | | [place] [address] | + + + | Home Phone | | + + + | Preferred Language | Unknown | + + + | Marital Status | Single | + + + | Gnosticist Affiliation | PRE | + + + | Race | White | + + + | Ethnic Group | Not or | + + + Author + + + | Author | [facility] | + + + | Organization | [facility] | + + + | [...] Team Providers + +------+ + | Care Helicopter Pilot Instructor Name | Role | Phone | + +------+ + | Travis Mcginnis MD | PCP | | + +------+ + Encounter Details +--------+ + + + + | Date | Type | Department | Care Team | Description | +--------+ + + + + | 08/08/ | Telephone | Orthopaedics at | Kalyan Arias MD | | | 2009 | | [address] | [address] | | | | | [address] | [address] | | | | | Mailcode: [address]430 | [facility] [place] | | | | | [facility] | [address] | | | | | [place], [place] | [phone] | | | | | [address] | | | | | | [phone] | | | +--------+ + + + [...]
--- OUTSIDE RECORDS SUMMARY | ~2020-03-28 | XMS | Encounter Summary ---
Demographics + + + | Address | [address] | | | [place] [address] | + + + | Home Phone | | + + + | Preferred Language | Unknown | + + + | Marital Status | Single | + + + | Buddhist Affiliation | PRE | + + + [...] Team Providers + +------+ + | Care Laborer Heading Name | Role | Phone | + +------+ + PCP | Unavailable | + +------+ + Encounter Details +--------+ + + + + | Date | Type | Department | Care Team | Description | +--------+ + + + + | 09/25/ | Procedure - | | Record, Operation | Operative Report | | 2002 | | | | | | | Transcribed | | | | +--------+ + + [...] | + +--------+ + + + | OPERATION RECORD | | 09/27/2003 | | Results for this | | | | | | procedure are in the | | | | | | results section. | + +--------+ + + + | OPERATION RECORD | | 09/25/2003 | | Results for this | | | | | | procedure are in the | | | | | | results section. | + +--------+ + + + documented in this encounter Results OPERATION RECORD (09/27/2003) + + | Transcriptions | + + | Interface, Pilot Control Operator In - 02/27/2006 3:05 AM PDT Date: | | 09/27/2003Attending Surgeon: Lloyd Garcia M.D.Coke Crusher Operator(s): | | Benson Boone M.D.Preoperative Diagnosis:Right hip | | infection.Postoperative Diagnosis(es):Right hip infection.Procedures Performed:1. | | Right hip irrigation debridement.2. Wound V.A.C. exchange.Anesthesia:General | | endotracheal anesthetic.Findings:Fibrinous tissue overlying the fascia lv with 2 areas | | of purulentpockets. There was also friable vastus lateralis and gluteus medius. | | Therewas fibrinous tissue overlying the greater trochanter ostomy site with aproximal | | head comminution.Drains:One Hemovac.Complications:None.Estimated Blood Loss:150 cc.IV | | Fluids:1500 cc.Specimens:None.Indications:Ms. Galdamez is a 42-year-old female with history | | of right hip arthritis. Sheis status post chilectomy via anteromedial approach was | | complicated by agreater trochanter osteotomy avulsion. This was then later repaired | | with( ) which was complicated secondary to a hip infection. Thepatient is | | brought back today for a second repeat I D and a wound V.A.C.exchange.Procedure:The | | patient was properly identified in the preop holding area and taken tothe OR room #4. | | The patient was placed in a supine position where ageneral anesthetic was performed. | | Once this was completed, she was put inthe left lateral decubitus position via a | | beanbag. Attention was thenturned to her right hip which was prepped and draped in | | normal sterilefashion. The old wound V.A.C. site was removed. We then identified | | theunderlying adipose and muscular tissues. We found that there was an areaof fibrinous | | tissue overlying the fascia lv. There were also 2 areas ofpurulent pockets between | | the adipose tissue and fascia lv intervals. Weresected about an 8 x 3 cm area of | | adipose tissue that seemed to be nidusfor bacterial growth.The area was initially | | irrigated with a pulse lavage after an initialdebridement was performed. Irrigated with | | approximately 2-1/2 liters of LRwith bacitracin. Once this was completed, we performed | | a second diagnosticevaluation and found that we had removed most of the fibrinous | | tissue.There was no evidence of further pockets of purulence. I then went aheadand | | irrigated the remaining portion of the pulse lavage which consisted of2-1/2 liters of LR | | with bacitracin. We also evaluated the osteotomy siteand found that there was a | | fibrinous tissue overlying the distal pole ofthe greater trochanter. The proximal pole | | of the greater trochanter hadbeen avulsed and showed comminution with at least 4 to 5 | | segments. Thevastus lateralis, gluteus medius, and fascia lv muscles were all | | viable.A medium wound V.A.C. sponge was then placed within the interval beneaththe | | gluteus medius. We placed a large Hemovac sponge in the remainingmajority part of the | | wound. The wound V.A.C. sponge was then stapled tothe skin edges from the 3 o'clock to | | 9 o'clock position. The superior skinflap was then ( ) over the large | | Hemovac, and the raw edgeswere stapled to the underlying sponge. We then used 2-0 nylon | | to tack downthe remaining portion of the superior skin flap.The wound V.A.C. system was | | then properly placed and the system was turnedon. There was adequate suction with no | | evidence of leaks.The patient was then awakened from anesthesia and brought back to the | | PACUin stable fashion.Dr. Lloyd Garcia was present for this entire case.Plan:1. The | | patient is to continue on vancomycin and Cipro until our pending cultures and ID | | recommendations are completed.2. The patient is to return back to the Operating Room | | on Saturday for a repeat wound V.A.C. exchange. The patient is tentatively | | scheduled for Saturday for a repeat I D and a possible primary repair of her | | abductor tendon to her greater trochanter.Benson Boone M.D.Lloyd Garcia M.D.RT / | | [id number] / [id number] / [id number] / [id number]: 09/27/2003T: 09/28/2003 | |( ) which was complicated secondary to a hip infection. The | |patient is brought back today for a second repeat I D and a wound V.A.C. | |exchange. | | | |Procedure: | |The patient was properly identified in the preop holding area and taken to | |the OR room #4. The patient was placed in a supine position where a | |general anesthetic was performed. Once this was completed, she was put in | |the left lateral decubitus position via a beanbag. Attention was then | |turned to her right hip which was prepped and draped in normal sterile | |fashion. The old wound V.A.C. site was removed. We then identified the | |underlying adipose and muscular tissues. We found that there was an area | |of fibrinous tissue overlying the fascia lv. There were also 2 areas of | |purulent pockets between the adipose tissue and fascia lv intervals. We | |resected about an 8 x 3 cm area of adipose tissue that seemed to be nidus | |for bacterial growth. | | | |The area was initially irrigated with a pulse lavage after an initial | |debridement was performed. Irrigated with approximately 2-1/2 liters of LR | |with bacitracin. Once this was completed, we performed a second diagnostic | |evaluation and found that we had removed most of the fibrinous tissue. | |There was no evidence of further pockets of purulence. I then went ahead | |and irrigated the remaining portion of the pulse lavage which consisted of | |2-1/2 liters of LR with bacitracin. We also evaluated the osteotomy site | |and found that there was a fibrinous tissue overlying the distal pole of | |the greater trochanter. The proximal pole of the greater trochanter had | |been avulsed and showed comminution with at least 4 to 5 segments. The | |vastus lateralis, gluteus medius, and fascia lv muscles were all viable. | | | |A medium wound V.A.C. sponge was then placed within the interval beneath | |the gluteus medius. We placed a large Hemovac sponge in the remaining | |majority part of the wound. The wound V.A.C. sponge was then stapled to | |the skin edges from the 3 o'clock to 9 o'clock position. The superior skin | |flap was then ( ) over the large Hemovac, and the raw edges | |were stapled to the underlying sponge. We then used 2-0 nylon to tack down | |the remaining portion of the superior skin flap. | | | |The wound V.A.C. system was then properly placed and the system was turned | |on. There was adequate suction with no evidence of leaks. | | | |The patient was then awakened from anesthesia and brought back to the PACU | |in stable fashion. | | | |Dr. Lloyd Garcia was present for this entire case. | | | |Plan: | |1. The patient is to continue on vancomycin and Cipro until our pending | | cultures and ID recommendations are completed. | |2. The patient is to return back to the Operating Room on Saturday for | | a repeat wound V.A.C. exchange. The patient is tentatively scheduled | | for Saturday for a repeat I D and a possible primary repair of her | | abductor tendon to her greater trochanter. | | | | | | | | | | | |Benson Boone M.D. | | | | | | | |Lloyd Garcia M.D. | | | |RT / HS | |[id number] / [id number] / [id number] / [id number] | | | | | + + OPERATION RECORD (09/25/2003) + + | Transcriptions | + + | Interface, Pilot Control Operator In - 02/27/2006 3:05 AM PDT Date: | | 09/25/2003Attending Surgeon: Lloyd Garcia M.D.Coke Crusher Operator(s): | | MD Fox Gold, | | MalcomPreoperative Diagnosis:Right lateral hip postoperative wound infection.Postoperative | | Diagnosis(es):Right lateral hip postoperative wound infection.Procedures | | Performed:Irrigation, debridement of right lateral hip wound and greater | | trochantericbone bed and tip and removal of hardware from right proximal femur | | withplacement of large wound VAC sponge.Anesthesia:General | | endotracheal.Complications:None apparent.Specimens:Swab tissue and bone from right | | greater trochanter.Estimated Blood Loss:200 cc.Blood Replacement:600 cc of intravenous | | crystalloid fluids. No blood products.Drains:One large wound VAC sponge to be placed to | | 125 mm of continuous suction.Postoperative Plan:Touchdown weightbearing on the right | | lower extremity with a right hipabduction pillow. We will modify her hip abduction | | brace. She no longerhas flexion or extension or rotational restrictions, but she cannot | | adduct.We will plan to return to the Operating Room in 2 to 3 days' time forrepeat | | irrigation, debridement, and possible delayed primary closure overdrain. We will start | | her on vancomycin intravenously and ciprofloxacinorally for empiric antibiotic coverage, | | obtain an Infectious Diseaseconsult, modify these as culture and sensitivity results | | return.Indications:A 43-year-old woman underwent removal of osteophytes from her right | | femoralhead for degenerative joint disease on August 16, 2003. Postoperativecourse | | was complicated by loss of reduction of her greater trochantericosteotomy which required | | open reduction internal fixation. On August, she was placed in a hip | | abduction brace [facility] | | from her wound which turnedpurulent. She returned to the Emergency Department last | | night with a whiteblood cell count of 12.1, elevated absolute neutrophil count, | | erythrocytesedimentation rate of 64, and C-reactive protein level of 7.7 with | | frankpurulent drainage from the anterior aspect of her wound. X-rays showed theplate | | and the greater trochanter reattachment claw still fixed to thefemur, but the tip of the | | trochanter had pulled proximally severalcentimeters compared to postop x-rays. The | | patient was therefore indicatedfor open irrigation and debridement and possible hardware | | removal.Operative Findings:There was robin purulent drainage extending all the way down | | to the plateand hardware. The trochanteric tip had pulled off and subcomminuted.There | | was no evidence of deep extension into the hip joint. There was skinedge breakdown | | along the staple line.Attending Surgeon Attestation:I certify I was present in the | | Operating Room and participated in allphases of the procedure.Procedure:The patient was | | identified in the holding area. Risks, benefits, andalternatives to surgery were | | discussed at great length. All of herquestions were invited and answered. She was | | tearful. She was thenbrought back to Operating Room #[facility] at [facility] | | [place].General endotracheal anesthesia was administered. Antibiotics werewithheld | | until after cultures were sent. The patient was intubated.General anesthesia was | | obtained, and she was placed lateral on a beanbag.The perineum and thorax were isolated | | off with plastic sheets and barrierdrapes. The graciela were removed, and she was | | prepped from below the kneeto the thorax and down to the level of the table with | | Betadine scrub andBetadine paint. The prior incision was reopened in the anterior | | two-thirdsportion which had been reopened for her trochanteric ORIF. Robin pusexuded. | | Deep cultures were sent. Plate was readily seen. The tip of thetrochanter seemed to be | | no longer contained by the claw of the GTR. Thewound was copiously irrigated and | | meticulously debrided with a combinationof sharp technique with scalpel removing the | | skin edges and curettesremoving the superficial surfaces of the tissue, rongeurs, and | | more copiousirrigation with pulsatile lavage. We then explored all the recesses of | | thewound, removed the plate in between cycles of irrigation, and inserted awound VAC | | sponge into the wound, sealed it in with Ioban, and connected itto suction to ensure | | that a suction seal was obtained. This beingcompleted, the patient was undraped and | | reversed from anesthesia. Afterbeing turned supine onto the gurney, a large abduction | | pillow was placedbetween the thighs, and she was extubated in the Operating Room and | | broughtto the Recovery Room in stable and satisfactory condition having toleratedthe | | procedure well without apparent complications.Lloyd Garcia M.D.Patient Financial Services Specialist, | | Orthopedics and Rehabilitation / [id number] / [id number] / [id number] / [id number]: 09/25/2003T: | | 09/26/2003 | |plate and the greater trochanter reattachment claw still fixed to the | |femur, but the tip of the trochanter had pulled proximally several | |centimeters compared to postop x-rays. The patient was therefore indicated | |for open irrigation and debridement and possible hardware removal. | | | |Operative Findings: | |There was robin purulent drainage extending all the way down to the plate | |and hardware. The trochanteric tip had pulled off and subcomminuted. | |There was no evidence of deep extension into the hip joint. There was skin | |edge breakdown along the staple line. | | | |Attending Surgeon Attestation: | |I certify I was present in the Operating Room and participated in all | |phases of the procedure. | | | |Procedure: | |The patient was identified in the holding area. Risks, benefits, and | |alternatives to surgery were discussed at great length. All of her | |questions were invited and answered. She was tearful. She was then | |brought back to Operating Room [facility] at [facility]. | |General endotracheal anesthesia was administered. Antibiotics were | |withheld until after cultures were sent. The patient was intubated. | |General anesthesia was obtained, and she was placed lateral on a beanbag. | |The perineum and thorax were isolated off with plastic sheets and barrier | |drapes. The graciela were removed, and she was prepped from below the knee | |to the thorax and down to the level of the table with Betadine scrub and | |Betadine paint. The prior incision was reopened in the anterior two-thirds | |portion which had been reopened for her trochanteric ORIF. Roibn pus | |exuded. Deep cultures were sent. Plate was readily seen. The tip of the | |trochanter seemed to be no longer contained by the claw of the GTR. The | |wound was copiously irrigated and meticulously debrided with a combination | |of sharp technique with scalpel removing the skin edges and curettes | |removing the superficial surfaces of the tissue, rongeurs, and more copious | |irrigation with pulsatile lavage. We then explored all the recesses of the | |wound, removed the plate in between cycles of irrigation, and inserted a | |wound VAC sponge into the wound, sealed it in with Ioban, and connected it | |to suction to ensure that a suction seal was obtained. This being | |completed, the patient was undraped and reversed from anesthesia. After | |being turned supine onto the gurney, a large abduction pillow was placed | |between the thighs, and she was extubated in the Operating Room and brought | |to the Recovery Room in stable and satisfactory condition having tolerated | |the procedure well without apparent complications. | | | | | | | | | |Lloyd Garcia M.D. | |Patient Financial Services Specialist, Orthopedics and Rehabilitation | | | | / | |[id number] / [id number] / [id number] / [id number] | | | | | + + documented in this encounter Visit Diagnoses Not on filedocumented in this encounter"
--- OUTSIDE RECORDS SUMMARY | ~2020-03-28 | XMS | Encounter Summary ---
Demographics + + + | Address | [address] | | | [place] [address] | + + + | Home Phone | | + + + | Preferred Language | Unknown | + + + | Marital Status | Single | + + + | Hoahaoism Affiliation | PRE | + + + | Race | White | + + + | Ethnic Group | Not or | + + + Author + + + | Author | [facility] | + + + | Organization | [facility] | + + + | Address | Unknown | + + + | Phone | Unavailable | + + + Support + + + + + | Name | Relationship | Address | Phone | + + + + + | Casandra Smith | ROBERTO | [place] | | + + + + + Care Team Providers + +------+ + | Care Public Relations Specialist Name | Role | Phone | + [...] [facility] | | | | | | [address] | | | | | | [address] | | | | | | [place], [address] | | | | | | [place], [place] | | | | | | [address] | | | | | | [phone] | | | +--------+ + + + [...] X-RAY HIP 2 VIEWS | Routin | 12/16/2008 | JUAN DAVID (Total Hip | Results for this | | RIGHT | e | 1:36 PM | Arthroplasty) | procedure are in the | | | | PDT | | results section. | + +--------+ + + + documented in this encounter Results X-RAY HIP 2 VIEWS RIGHT (12/16/2008 1:36 PM PDT) + + + + + + | Component | Value | Ref Range | Performed | Pathologist | | | | | At | Signature | + + + + + + | HIP 2 VIEWS | Pelvis one view and | | | | | RIGHT | right hip 2 views | | [...] [facility] | | | | | | NENAUS PENDING FINAL | | | | | [...]
--- OUTSIDE RECORDS SUMMARY | ~2020-03-28 | XMS | Encounter Summary ---
Demographics + + + | Address | [address] | | | [place] [address] | + + + | Home Phone [...] Author + + + | Author | [facility] | + + + | Organization | [facility] | + + + | [...] Team Providers + +------+ + | Care Head Nurse Name | Role | Phone | + [...] | | | unspecified | | [address] [place], | | | | | whether | | [place] | | | | | generalized | | [address] | | | | | or | | Phone: | | | | | localized, | | [phone] | | | | | pelvic | | Fax: | | | | | region and | | [phone] | | | | | thigh Pain [...] | | | | Mailcode: [id number] | [place], [place] | inflammatory | | | | [facility] | [address] | reaction due to | | | | [place], [place] | [phone] | internal joint | | | | [address] | | prosthesis ([facility]); | | | | [phone] | | EE-NO SHOW | +--------+---------+ + [...]
--- OUTSIDE RECORDS SUMMARY | ~2020-03-28 | XMS | Encounter Summary ---
Demographics + + + | Address | [address] | | | [place] [address] | + + + | Home Phone [...] + + + | Author | [facility] | + + + | Organization | [facility] | + + + | [...] Team Providers + +------+ + | Care Castings Drafter Name | Role | Phone | + +------+ + | Travis Mcginnis MD | PCP | | + +------+ + Reason for Visit + + + | Reason | Comments | + + + | Medication | | | management | | + + + Encounter Details +--------+ + + + + | Date | Type | Department | Care Team | Description | +--------+ + + + + | 11/13/ | Supervisor Engraving | Infectious | [facility] | | | 2010 | | Diseases at [facility] | K, PA-C [address] | | | | | [address] | [facility] | | | | | [address] | [place], [place] | | | | | [place] | [address] | | | | | [place], [place] | [phone] | | | | | [address] | | | | | | [phone] | | | +--------+ + + + [...]
--- OUTSIDE RECORDS SUMMARY | ~2020-03-28 | XMS | Encounter Summary ---
Demographics + + + | Address | [address] | | | [place] [address] | + + + | Home Phone | | + + + | Preferred Language | Unknown | + + + | Marital Status | Single | + + + | Jain Affiliation | PRE | + + + | Race | White | + + + | Ethnic Group | Not or | + + + Author + + + | Author | [facility] | + + + | Organization | [facility] | + + + | Address [...] Team Providers + +------+ + | Care Cash Applications Manager Name | Role | Phone | [...] + + + | Closed | | Infectious | Diagnoses | Arias, | [place], | | | | Disease | Infection | Kalyan Barrientos MD | Carolina Reddy, | | | | | and | [address] | | | | | inflammatory | [address] | [address] | | | | | reaction | [address] | [address] | | | | | due to | [place] | | | | | unspecified | [address] | [phone] | | | | | device, | Phone: | Phone: | | | | | implant, and | [phone] | [phone] | | | | | graft | Fax: | Fax: | | | | | | [phone] | [phone] | +--------+--------+ + + + + Encounter Details +--------+---------+ + + + | Date | Type | Department | Care Team | Description | +--------+---------+ + + + | 11/09/ | Office | Infectious | Carolina Putnam | Prosthetic joint | | 2010 | Visit | Diseases at [facility] | MEGAN Reddy [address] | infection (HCC) | | | | [address] | [facility] [address] | (Primary Dx) | | | | [address] Phys[address] | [place], [place] | | | | | [place], 3rd floor | [address] | | | | | [place], [place] | [phone] | | | | | [address] | | | | | | [phone] | | | +--------+---------+ + + + [...] documented as of this encounter Progress Notes Carolina Putnam PA-C - 11/17/2010 11:37 AM PSTFormatting of this note might be differen t from the original. INFECTIOUS DISEASES CLINIC FOLLOW UP Primary Care Physician: Carlos [address] [address] Ms. Galdamez presents to Infectious Diseases Clinic regarding scheduled follow up. The patient was seen in conjunction with Orthopedic Service today. The following history was obtained from review of patient records as compiled by myself ashlie or to today's OPAT visit: Ms. Galdamez is a 50 year old female with past medical history significant for asthma, GERD, m orbid obesity, HTN, hyperlipidemia, and nephrolithiasis who originally underwent R hip cheil ectomy in Jul 2003. A greater troch osteotomy was performed for exposure and this subsequent ly went on to non-union. 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 Arias. Fr hiro section biopsies were sent, and there was no evidence of infection at that time. Post-o peratively, the patient was unable to be compliant with weightbearing restrictions, and the ORIF hardware failed in the early postoperative period. This went on to be minimally symptom atic for her, and she did well with the arthroplasty itself. Ms. Galdamez then developed acute worsening of R hip pain on 10/10/2010 such that she was unabl e to ambulate. She had no fever or chills, but did have a leukocytosis in the ED up to 19, a nd was therefore admitted to [facility] out of concern for R hip infection. An x-ray of the hip di d not show acute osseus lesions. An IR guided tap of the R hip yielded <1cc of serosangious fluid that did grow anything on cultures. A CXR, UA, and TTE were negative. A CT scan on 09/30 showed a new fluid collection surrounding the right hip that was concerning for infec tion. The joint was tapped again on 10/16/2010, with cultures growing MSSA. On 10/16 Ms. Galdamez underwent I & D of the R hip with findings significant for a large pocket of clear brownish viscous fluid. The clawed cable plate was removed but the total hip arthr oplasty was left in place. Culture data: (Note: 5/ Tissue cultures also grew MSSA with the same antibiogram) 10/16/2010 - Joint Fluid Culture Source...............: Site 6 and 7, right hip, surgical RLB Gram Stain...........: No Squamous epithelial cells Many PMN's Many Gram positive cocci in clusters Culture: Staphylococcus aureus Final ID Growth in Aerobic BottleGrowth in Anaerobic Bottle S. aureus Cefazolin S Ciprofloxacin S Clindamycin S Erythromycin S Oxacillin S Tetracycline S Trimeth/Sulfa S Vancomycin S Penicillin R Rifampin S Final Report Ms. Galdamez was treated for infection initially with IV Cefazolin. This was switched to Nafci llin as of 10/19/2010 based on culture data. A C. Difficile PCR was positive on 10/18/2010, an d Metronidazole was added for this, though she was quite asymptomatic. A single lumen PICC w as placed on 10/19/2010. The ID team was consulted and felt that even though the hardware juan david t was contiguous to the hip abscess had been removed, it was still very likely that the resi dual prosthetic material was also contaminated. Thus this infection was thought not to be cu rable with medical therapy alone, and would require long-term suppression with oral antibiot ics after an initial course of IV antibiotics. Ms. Galdamez was discharged in stable condition on 10/22/2010 to [facility] with OPAT & Orthopedic follow-up planned in 2 weeks ti wi. Interim History obtained 11/17/2010: Ms. Galdamez presents today from home accompanied by her caregiver. She was discharged to home from the SNF after a few days there, despite concerns for her safety at home. However, she seems to have done well at home. She has received the IV Nafcillin without missed doses, and with no PICC line difficulties. She has been taking metronidazole as directed, which she fe els has given her nausea. She had 1 episode of diarrhea, none since. She reports today no no ticeable antibiotic side effects, specifically - no headache, no visual changes, no oral les ions, no new skin lesions or rashes, no cough, no SOB, no chest pains, no diarrhea, no abdom inal pain, and no changes in urination. There have been no fevers, chills, or night sweats. The R hip incision has healed very well. [place] were removed locally, and there has been n o drainage. She is weight-bearing with a walker at home, with pain improved from the time of her hospital discharge. Current Medications: Current outpatient prescriptions Medication Sig acetaminophen 500 mg Oral Tablet Take 500 mg by mouth every six hours as needed. ALBUTEROL SULFATE 200 MCG CAPS WITH INHALATION DEVICE inhale the contents of one capsul e by inhalation route every 4 hours as needed aspirin EC 325 mg Oral Tablet, Delayed Release (E.C.) Take 1 Tab by mouth two times mo ly. Take for 6 weeks as prevention of leg blood clots. CALCIUM CARBONATE/VITAMIN D3 (CALCIUM 600 + D ORAL) Take by mouth. CYCLOBENZAPRINE HCL (CYCLOBENZAPRINE ORAL) Take by mouth. docusate sodium (DOC-Q-LACE) 100 mg Oral Capsule Take 100 mg by mouth as needed. hydrocodone-acetaminophen 7.5-325 mg Oral Tablet Take 1 Tab by mouth every four hours a s needed. Not to exceed 12 tablets per any 24 hour period. (Not to exceed 4000 mg of acetami nophen from all products per 24 hour period.) metroNIDAZOLE 500 mg Oral Tablet Take 1 Tab by mouth three times daily. MULTIVITS W-FE,OTHER MIN (CENTRUM ORAL) Take by mouth. nafcillin 1 gram Injection Recon Soln Inject 2 g into the vein (IV) every four hours. M edication to be admixed per infusion pharmacy standard policy and/or procedure. Indications : Staphylococcus Aureus Joint Infection nicotine 14 mg/24 hr Transdermal Patch 24 hr Apply 1 Patch to skin once daily. nystatin 100,000 unit/g Topical Powder by Topical route two times daily. Apply to herrera crystal lesions until lesions have healed. For fungal infection of the feet cause by Bettye sp ecies, the powder should be dusted freely on the feet as well as in shoes and socks. Etta-3 Fatty Acids-Vitamin E (FISH OIL) 1,000 mg Oral Capsule Take by mouth. omeprazole (PRILOSEC) 40 mg Oral Capsule, Delayed Release(E.C.) Take 40 mg by mouth onc e daily. rifamPIN 300 mg Oral Capsule Take 1 Cap by mouth two times daily. Allergies: Lipitor, Sulfa (sulfonamides) and Adhesive tape Physical Exam: VS: There were no vitals taken for this visit. (See ortho visit, same date & time) The patient was sitting comfortably at rest. There was no evidence of jaundice. There was no stigmata of infectious endocarditis HEENT was normal There was no lymphadenopathy There was no new skin or oral lesions. R hip appears healed, without surrounding erythema o r fluctuance. The PICC/groshong site was clean, without redness Cardiovascular examination revealed normal heart sounds with no added sounds and no murmurs Respiratory examination revealed inpiration= expiration R=L, and breath sounds vesicular wi th no added sounds Neuro exam was grossly intact Diagnostic Tests: SEDIMENTATION RATE (mm/hr) Date Value 11/09/2010 55* C-REACTIVE PROTEIN (mg/dl) Date Value 11/09/2010 < 0.5 Lab Results Component Value Date WBC 10.6 11/09/2010 RBC 4.07 11/09/2010 HB 12.1 11/09/2010 HCT 35.7* 11/09/2010 MCV 87.7 11/09/2010 MCHC 34.0 11/09/2010 RDW 15.7* 11/09/2010 PLT 412* 11/09/2010 NEUTROPERC 66 11/09/2010 LYMPHPERC 25 11/09/2010 MONOPERC 6 11/09/2010 EOSPERC 2 11/09/2010 BASOPERC 1 11/09/2010 NEUTROPHILCO 7.0 11/09/2010 MONOCYTECO 0.6 11/09/2010 EOSCO 0.2 11/09/2010 BASOPHILCO 0.1 11/09/2010 CBCCOMMENTS Final automated differential report. Smear reviewed. 10/23/2010 Lab Results Component Value Date NA 138 11/09/2010 K 3.6 11/09/2010 CL 104 11/09/2010 BICARB 25 11/09/2010 BUN 9 11/09/2010 CR 0.50 11/09/2010 GLU 86 11/09/2010 CA 9.3 11/09/2010 AST 16 11/09/2010 ALT 17 11/09/2010 AP 72 11/09/2010 TBILI 0.9 11/09/2010 TP 7.6 11/09/2010 ALB 3.5 11/09/2010 DIRBILI < 0.1 10/04/2003 Assessment: 1) Hardware-associated R JUAN DAVID infection (MSSA) - improving. 2) C. Difficile PCR +: diarrhea resolved. Recommendations/Plan: Ms. Galdamez has now completed 3+ weeks if IV antibiotic therapy for treatment of MSSA infecte d R hip infection. She is tolerating this well, without antibiotic side effects or PICC line concerns. I explained that while the abscess was washed out, and the plate and cerclage wir e were removed, we think it most likely that the R JUAN DAVID which remains has been seeded with ba cteria. This is based on the fact that the second hip joint tap grew out MSSA. We discussed bone & joint infections. I explained how bacteria can make a slime and go to s leep under it. They also like to hide on any bone that is devitalized or on prosthetic mater ial. I explained that initially we kill the bulk of bacteria, but antibiotics are needed for a long time so that we can kill any remaining bacteria when they wake up. I explained that there is no set duration of antibiotic treatment for joint infections. I explained that we usually start with 6 weeks, but the duration will be customized to each patient according to their clinical progress. I recommended continuing with IV Nafcillin for a full 6-week course, as well as adding Rifa mpin today for its effectiveness against MSSA biofilms. I reviewed the side effects of rifam pin. These include abnormal LFT's, red urine, and red sweat. This medication also interacts with narcotic medication, reducing effectiveness of pain medications. I advised the patient not to drink alcohol while taking rifampin, and not to wear white shirts as these will be st ained red by sweat. I advised that contact lenses may also be permanently discolored. An rx for this medication was faxed today to the patient's preferred pharmacy. I recommended stopping oral metronidazole now, as she has completed a typical course of the rapy, is asymptomatic for diarrhea, and the medication is causing nausea. I advised Ms. Robbin quezada to contact us should symptoms of diarrhea recur. PICC dressing change and weekly labs were drawn today. She will travel to her PCP in [place] in 1 weeks time for another PICC dressing change and weekly labs, then follow-up with us the week of 11/20 - at which time we anticipate stopping IV antibiotics and switching to a n oral regimen. It is recommended that Ms. Galdamez follow up in Infectious Diseases Clinic in 2 weeks. I spent a total of 30 minutes face to face with the patient and over 50% was time spent in counseling in which we discussed infection, antibiotics, duration of therapy, lab results, a nd follow-up planning. Carolina Putnam PA-C [facility] Department of Infectious Disease Outpatient IV Antibiotic Therapy Clinic (OPAT) Pager ID: [phone] Mail Code [address] [place] [address] documented in th is encounter Plan of Treatment Not on filedocumented as of this encounter Procedures + +--------+ + + + | Procedure Name | Priori | Date/Time | Associated Diagnosis | Comments | | | ty | | | | + +--------+ + + + | DIFFERENTIAL | Routin | 11/09/2010 | | Results for this | | | e | 2:27 PM | | procedure are in the | | | | PST | | results section. | + +--------+ + + + | CBC, WITH | Routin | 11/09/2010 | Prosthetic joint | Results for this | | DIFFERENTIAL | e | 2:27 PM | infection (HCC) | procedure are in the | | | | PST | | results section. | + +--------+ + + + | COMPLETE METABOLIC | Routin | 11/09/2010 | Prosthetic joint | Results for this | | SET | e | 2:27 PM | infection (HCC) | procedure are in the | | (NA,K,CL,CO2,BUN,CRE | | PST | | results section. | | AT,GLUC,CA,AST,ALT,B | | | | | | BRISEYDA TOTAL,ALK | | | | | | PHOS,ALB,PROT TOTAL) | | | | | + +--------+ + + + | C-REACTIVE PROTEIN | Routin | 11/09/2010 | Prosthetic joint | Results for this | | | e | 2:27 PM | infection (HCC) | procedure are in the | | | | PST | | results section. | + +--------+ + + + | SEDIMENTATION RATE | Routin | 11/09/2010 | Prosthetic joint | Results for this | | | e | 2:27 PM | infection (HCC) | procedure are in the | | | | PST | | results section. | + +--------+ + + + documented in this encounter Results DIFFERENTIAL (11/09/2010 2:27 PM PST) + +-------+ + + + | Component | Value | Ref Range | Performed | Pathologist | | | | | At | Signature | + +-------+ + + + | NEUTROPHIL | 66 | 50 - 70 % | [facility] | | | % | | | DEPARTMENT | | | | | | OF | | | | | | PATHOLOGY | | + +-------+ + + + | LYMPHOCYTE | 25 | 18 - 42 % | [facility] [...] +-------+ + + + | NEUTROPHIL | 7.0 | 1.8 - 7.7 K/cu | [facility] | | | # | | mm | DEPARTMENT | | | | | | OF | | | | | | PATHOLOGY | | + +-------+ + + + | LYMPHOCYTE | 2.7 | 1.0 - 4.8 K/cu | [facility] | | | # | | mm | DEPARTMENT | | | | | | OF | | | | | | PATHOLOGY | | + +-------+ + + + | MONOCYTE # | 0.6 | <0.9 K/cu mm | [facility] | | | [...] | + + + + + | [facility] | [address] | [place] [address] | | | PATHOLOGY | [address] | | | + + + + + C-REACT PRTN (FOR INFLAMMATION) (11/09/2010 2:27 PM PST) + +-------+ + + + | Component | Value | Ref Range | Performed | Pathologist | | | | | At | Signature | + +-------+ + + + | C-REACTIVE | < 0.5 | <0.6 mg/dl | [facility] | | | PROTEIN | | | REGIONAL | | | | | | LABORATORY | | + +-------+ + + + + + | Specimen | + + | Blood - Blood | + + + + + | Narrative | Performed At | + + + | [facility] | [facility] | | [facility] [address] | REGIONAL | | [place] [address] | LABORATORY | + + + + + + + + | Performing | Address | City/State/Zipcode | Phone Number | | Organization | | | | + + + + + | [facility] | [address] | [place] [address] | | | LABORATORY | | | | + + + + + SEDIMENTATION RATE (11/09/2010 2:27 PM PST) + +--------+ + + + | Component | Value | Ref Range | Performed | Pathologist | | | | | At | Signature | + +--------+ + + + | SEDIMENTATI | 55 (H) | <31 mm/hr | [facility] | | | ON RATE | | | DEPARTMENT | | | | | | OF | | | | | | PATHOLOGY | | + +--------+ + + + + + | Specimen | + + | Blood - Blood | + + + + + + + | Performing | Address | City/State/Zipcode | Phone Number | | Organization | | | | + + + + + | [facility] | [address] | [place] [address] | | | PATHOLOGY | [address] | | | + + + + + COMPLETE METABOLIC SET (NA,K,CL,CO2,BUN,CREAT,GLUC,CA,AST,ALT,BILI TOTAL,ALK PHOS,ALB,PROT TOTAL) (11/09/2010 2:27 PM PST) + + + + + + | Component | Value | Ref Range | Performed | Pathologist | | | | | At | Signature | + + + + + + | GLUCOSE, | 86 | 60 - 99 mg/dL | [facility] | | | PLASMA | | | DEPARTMENT | | | (LAB) | | | OF | | | | | | PATHOLOGY | | + + + + + + | BUN, PLASMA | 9 | 6 - 20 mg/dL | [facility] | | | (LAB) | | | DEPARTMENT | | | | | | OF | | | | | | PATHOLOGY | | + + + + + + | CREATININE | 0.50 (L) | 0.60 - 1.10 | [facility] | | | PLASMA | | mg/dL | DEPARTMENT | | | (LAB) | | | OF | | | | | | PATHOLOGY | | + + + + + + | TOTAL | 7.6 | 6.1 - 7.9 g/dL | [facility] | | | PROTEIN, | | | DEPARTMENT | | | PLASMA | | | OF | | | (LAB) | | | PATHOLOGY | | + + + + + + | ALBUMIN, | 3.5 | 3.5 - 4.7 g/dL | [facility] | | | PLASMA | | | DEPARTMENT | | | (LAB) | | | OF | | | | | | PATHOLOGY | | + + + + + + | CALCIUM, | 9.3 | 8.6 - 10.2 | [facility] | | | PLASMA | | mg/dL | DEPARTMENT | | | (LAB) | | | OF | | | | | | PATHOLOGY | | + + + + + + | BILIRUBIN | 0.9 | 0.3 - 1.2 mg/dL | [facility] | | | TOTAL | | | DEPARTMENT | | | | | | OF | | | | | | PATHOLOGY | | + + + + + + | ALK PHOS | 72 | 42 - 98 U/L | [facility] | | | | | | DEPARTMENT | | | | | | OF | | | | | | PATHOLOGY | | + + + + + + | AST(SGOT) | 16 | 15 - 41 U/L | [facility] | | | | | | DEPARTMENT | | | | | | OF | | | | | | PATHOLOGY | | + + + + + + | SODIUM, | 138 | 134 - 143 | [facility] | | | PLASMA | | mmol/L | DEPARTMENT | | | (LAB) | | | OF | | | | | | PATHOLOGY | | + + + + + + | POTASSIUM, | 3.6 | 3.4 - 5.0 | [facility] | | | PLASMA | | mmol/L | DEPARTMENT | | | (LAB) | | | OF | | | | | | PATHOLOGY | | + + + + + + | CHLORIDE, | 104 | 97 - 108 mmol/L | [facility] | | | PLASMA | | | DEPARTMENT | | | (LAB) | | | OF | | | | | | PATHOLOGY | | + + + + + + | TOTAL CO2, | 25Comment: New Total | 22 - 29 mmol/L | [facility] | | | PLASMA | CO2 reference range | | DEPARTMENT | | | (LAB) | effective 08/22/10. | | OF | | | | | | PATHOLOGY | | + + + + + + | ALT (SGPT) | 17 | 13 - 48 U/L | [facility] | | | | | | DEPARTMENT | | | | | | OF | | | | | | PATHOLOGY | | + + + + + + | EGFR | > 60 | >60 mL/min | [facility] | | | - | | | DEPARTMENT | | | [place] | | | OF | | | | | | PATHOLOGY | | + + + + + + | EGFR NON | > 60Comment: GFR is | >60 mL/min | [facility] | | | -DEVENDRA | estimated using the MDRD | | DEPARTMENT | | | RICAN | equation recommended by | | OF | | | | theNational Kidney | | PATHOLOGY | | | | Disease Education | | | | | | Program. Estimated GFR | | | | | | Interpretive | | | | | | Information: <60 | | | | | | mL/min/1.73 sq m | | | | | | Chronic Kidney Disease | | | | | | <15 mL/min/1.73 sq m | | | | | | Kidney Failure | | | | | | Estimated GFR greater | | | | | | than 60mL/min/1.73 is of | | | | | | limited clinical Value. | | | | | | The MDRD equation is | | | | | | not valid in the | | | | | | following situations: - | | | | | | Patients under 18 years | | | | | | of age - Severe | | | | | | malnutrition or obesity | | | | | | - Vegetarian diet - | | | | | | Rapidly changing kidney | | | | | | function | | | | + + + + + + | ANION GAP | 9 | 4 - 11 mmol/L | [facility] | | | | | | DEPARTMENT | | | | | | OF | | | | | | PATHOLOGY | | + + + + + + | ANION | 10 | 4 - 11 mmol/L | [facility] | | | GAP(ALB | | | DEPARTMENT | | | CORRECTED) | | | OF | | | | | | PATHOLOGY | | + + + + + + + + | Specimen | + + | Blood - Blood | + + + + + + + | Performing | Address | City/State/Zipcode | Phone Number | | Organization | | | | + + + + + | [facility] | [address] | [place] [address] | | | PATHOLOGY | [address] | | | + + + + + CBC, WITH DIFFERENTIAL (11/09/2010 2:27 PM PST) + + + + + + | Component | Value | Ref Range | Performed | Pathologist | | | | | At | Signature | + + + + + + | WHITE CELL | 10.6 | 4.4 - 11.0 K/cu | [facility] | | | COUNT | | mm | DEPARTMENT | | | | | | OF | | | | | | PATHOLOGY | | + + + + + + | RED CELL | 4.07 | 4.00 - 5.20 | [facility] | | | COUNT | | M/cu mm | DEPARTMENT | | | | | | OF | | | | | | PATHOLOGY | | + + + + + + | HEMOGLOBIN | 12.1 | 12.0 - 16.0 | [facility] | | | | | g/dL | DEPARTMENT | | | | | | OF | | | | | | PATHOLOGY | | + + + + + + | HEMATOCRIT | 35.7 (L) | 36.0 - 46.0 % | [facility] | | | | | | DEPARTMENT | | | | | | OF | | | | | | PATHOLOGY | | + + + + + + | MCV | 87.7 | 80.0 - 96.0 fL | [facility] | | | | | | DEPARTMENT | | | | | | OF | | | | | | PATHOLOGY | | + + + + + + | MCHC | 34.0 | 33.4 - 35.5 | [facility] | | | | | g/dL | DEPARTMENT | | | | | | OF | | | | | | PATHOLOGY | | + + + + + + | RDW | 15.7 (H) | 11.5 - 15.0 % | [facility] | | | | | | DEPARTMENT | | | | | | OF | | | | | | PATHOLOGY | | + + + + + + | PLATELET | 412 (H) | 150 - 400 K/cu | [facility] | | | COUNT | | mm | DEPARTMENT | | | | | | OF | | | | | | PATHOLOGY | | + + + + + + + + | Specimen | + + | Blood - Blood | + + + + + + + | Performing | Address | City/State/Zipcode | Phone Number | | Organization | | | | + + + + + | 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
--- OUTSIDE RECORDS SUMMARY | ~2020-03-28 | XMS | Encounter Summary ---
Demographics + + + | Address | [address] | | | [place] [address] | + + + | Home Phone [...] Providers + +------+ + | Care Medical Office Secretary Name | Role | Phone | + +------+ + PCP | Unavailable | + +------+ + Encounter Details +--------+ + + + + | Date | Type | Department | Care Team | Description | +--------+ + + + + | 02/09/ | Results | Orthopaedics at | Lloyd Garcia MD | | | 2003 | Only | [facility] [address] | | | | | | [address] | | | | | | Mailcode: [id number] | | | | | | [facility] | | | | | | [place], [place] | | | | | | [address] | | | | | | [phone] | | | +--------+ + + + [...] + + | DIFFERENTIAL | Routin | 02/10/2004 | | Results for this | | | e | 9:30 AM | | procedure are in the | | | | PDT | | results section. | + +--------+ + + + | CBC, WITH | Routin | 02/10/2004 | | Results for this | | DIFFERENTIAL | e | 9:30 AM | | procedure are in the | | | | PDT | | results section. | + +--------+ + + + | C-REACTIVE PROTEIN | Routin | 02/10/2004 | | Results for this | | | e | 9:30 AM | | procedure are in the | | | | PDT | | results section. | + +--------+ + + + | SEDIMENTATION RATE | Routin | 02/10/2004 | | Results for this | | | e | 9:30 AM | | procedure are in the | | | | PDT | | results section. | + +--------+ + + + | US LOWER EXT | Routin | 02/10/2004 | | Results for this | | NON-VASCULAR RT | e | 8:44 AM | | procedure are in the | | | | PDT | | results section. | + +--------+ + + + documented in this encounter Results C-REACTIVE PROTEIN (02/10/2004 9:30 AM PDT) + +-------+ + + + | Component | Value | Ref Range | Performed | Pathologist | | | | | At | Signature | + +-------+ + + + | C-REACTIVE | 0.5 | <0.9 mg/dl | | | | PROTEIN | | | | | + +-------+ + + + + + | Specimen | + + | | + + + + + + + | Performing | Address | City/State/Zipcode | Phone Number | | Organization | | | | + + + + + | [facility] | [address] | [place] [address] | | | LABORATORY | | | | + + + + + SEDIMENTATION RATE (02/10/2004 9:30 AM PDT) + +-------+ + + + | Component | Value | Ref Range | Performed | Pathologist | | | | | At | Signature | + +-------+ + + + | SEDIMENTATI | 12 | <21 mm/hr | [facility] | | [...] | + + + + + | [facility] DEPARTMENT | [address] [facility] [address] | [place] [address] | | | PATHOLOGY | [address] | | | + + + + + | [facility] DEPARTMENT | [address] [place] [address] | [place] [address] | | | PATHOLOGY | [address] | | | + + + + + DIFFERENTIAL (02/10/2004 9:30 AM PDT) + +-------+ + + + | Component | Value | Ref Range | Performed | Pathologist | | | | | At | Signature | + +-------+ + + + | NEUTROPHIL | 65 | 50 - 70 % | [facility] | | | % | | | DEPARTMENT | | | | | | OF | | | | | | PATHOLOGY | | + +-------+ + + + | LYMPHOCYTE | 27 | 18 - 42 % | [facility] | | | % | | | DEPARTMENT | | | | | | OF | | | | | | PATHOLOGY | | + +-------+ + + + | MONOCYTE % | 5 | 2 - 8 % | [facility] [...] +-------+ + + + | NEUTROPHIL | 6.9 | 1.8 - 7.7 K/cu | [facility] | | | # | | mm | DEPARTMENT | | | | | | OF | | | | | | PATHOLOGY | | + +-------+ + + + | LYMPHOCYTE | 2.9 | 1.0 - 4.8 K/cu | [facility] | | | # | | mm | DEPARTMENT | | | | | | OF | | | | | | PATHOLOGY | | + +-------+ + + + | MONOCYTE # | 0.5 | 0.1 - 0.6 K/cu | [facility] [...] | + + + + + | [facility] DEPARTMENT [facility] | [address] | [place] [address] | | | PATHOLOGY | [address] | | | + + + + + | [facility] DEPARTMENT OF | [address] | [place] [address] | | | PATHOLOGY | [address] | | | + + + + + CBC, WITH DIFFERENTIAL (02/10/2004 9:30 AM PDT) + +---------+ + + + | Component | Value | Ref Range | Performed | Pathologist | | | | | At | Signature | + +---------+ + + + | WHITE CELL | 10.6 | 4.4 - 11.0 K/cu | [facility] | | | COUNT | | mm | DEPARTMENT | | | | | | OF | | | | | | PATHOLOGY | | + +---------+ + + + | RED CELL | 4.44 | 3.65 - 5.10 | [facility] | | | COUNT | | M/cu mm | DEPARTMENT | | | | | | OF | | | | | | PATHOLOGY | | + +---------+ + + + | HEMOGLOBIN | 12.9 | 11.4 - 15.0 | [facility] | | | | | g/dL | DEPARTMENT | | | | | | OF | | | | | | PATHOLOGY | | + +---------+ + + + | HEMATOCRIT | 38.4 | 33.0 - 44.6 % | [facility] | | | | | | DEPARTMENT | | | | | | OF | | | | | | PATHOLOGY | | + +---------+ + + + | MCV | 86.5 | 80.0 - 96.0 fL | [facility] | | | | | | DEPARTMENT | | | | | | OF | | | | | | PATHOLOGY | | + +---------+ + + + | MCH | 29.1 | 29.0 - 32.0 pg | [facility] | | | | | | DEPARTMENT | | | | | | OF | | | | | | PATHOLOGY | | + +---------+ + + + | MCHC | 33.6 | 33.4 - 35.5 | [facility] | | | | | g/dL | DEPARTMENT | | | | | | OF | | | | | | PATHOLOGY | | + +---------+ + + + | RDW | 12.9 | 11.5 - 15.0 % | [facility] | | | | | | DEPARTMENT | | | | | | OF | | | | | | PATHOLOGY | | + +---------+ + + + | PLATELET | 415 (H) | 150 - 400 K/cu | [facility] | | | COUNT | | mm | DEPARTMENT | | | | | | OF | | | | | | PATHOLOGY | | + +---------+ + + + | MPV | 7.0 (L) | 7.4 - 10.4 fL | [facility] | | | | | | DEPARTMENT | | | | | | OF | | | | | | PATHOLOGY | | + +---------+ + + + + + | Specimen | + + | | + + + + + + + | Performing | Address | City/State/Zipcode | Phone Number | | Organization | | | | + + + + + | [facility] | [address] | [place] [address] | | | PATHOLOGY | [address] | | | + + + + + | [facility] | [address] | [place] [address] | | | PATHOLOGY | [address] | | | + + + + + US LOWER EXT NON-VASULAR RT (02/10/2004 8:44 AM PDT) + + + + + + | Component | Value | Ref Range | Performed | Pathologist | | | | | At | Signature | + + + + + + | US LOWER | Radiologist 1: KAREN, | | | | | EXT | RICHAR A., | | | | | NON-VASULAR | M.D.-Radiologist 2: | | | | | RT | MARIELA ROSSULTRASOUND | | | | | | RIGHT LOWER EXTREMITY | | | | | | (HIP) SOFT TISSUES | | | | | | 02.10.2004 COMPARISON: | | | | | | Ultrasound 01.06.2004, | | | | | | 12.23.2003, 11.03.2003. | | | | | | CLINICAL | | | | | | HISTORY/INDICATION: 43 | | | | | | year old female with | | | | | | postoperativeright hip | | | | | | soft tissue abscess. | | | | | | FINDINGS: Ultrasound of | | | | | | the soft tissues | | | | | | surrounding the | | | | | | hipdemonstrates a small | | | | | | amount of subcutaneous | | | | | | fluid and | | | | | | inflammatorychanges. | | | | | | However, the fluid | | | | | | collection previously | | | | | | seen has | | | | | | nearlycompletely | | | | | | resolved. There is no | | | | | | real definable fluid | | | | | | collectionper se. | | | | | | IMPRESSION: Small amount | | | | | | of subcutaneous fluid | | | | | | and inflammatory | | | | | | changes,however, no | | | | | | well-defined fluid | | | | | | collection is present, | | | | | | consistentwith resolving | | | | | | abscess. | | | | + + + [...]
--- OUTSIDE RECORDS SUMMARY | ~2020-03-28 | XMS | Encounter Summary ---
Demographics + + + | Address | [address] | | | [place] [address] | + + + | Home Phone | | + + + | Preferred Language | Unknown | + + + | Marital Status | | + + + | Yazidi Affiliation | [id number] | + + + | Race | Unknown | + + + | Ethnic Group | Unknown | + + + Author + + + | Author | [facility] | | | and [place] | + + + | Organization | [facility] | | | and [...] Team Providers + +------+ + | Care Wheel Loader Operator Name | Role | Phone | + +------+ + | Karli Hammonds | PCP | | | MD | | | + +------+ + Reason for Visit + +--------+ + | Reason | Onset | Comments | | | Date | | + +--------+ + | Medication Refill | 10/01/ | | | | 2012 | | + +--------+ + Encounter Details +--------+--------+ + + + | Date | Type | Department | Care Team | Description | +--------+--------+ + + + | 10/01/ | Refill | [facility] | Ladarius Martínez PA | Medication Refill | | 2012 | | SLEEP DISORDER [address] | [address] | | | | | [address] | [place] | | | | | [place] [address] | [id number] | | | | | [phone] | | | +--------+--------+ + + + [...] [place] | | | | | | [id number] | | | | | | | | +--------+---------+ + + + documented as of this encounter Visit Diagnoses + + | Diagnosis | + + | Obstructive sleep apnea (adult) (pediatric) - Primary | + + documented in this encounter"
--- OUTSIDE RECORDS SUMMARY | ~2020-03-28 | XMS | Encounter Summary ---
Demographics + + + | Address | [address] | | | [place] [address] | + + + | Home Phone [...] Team Providers + +------+ + | Care Barrel Lapper Name | Role | Phone | + +------+ + | No Pcp Per Patient | PCP | Unavailable | + +------+ + Reason for Visit +--------+ + | Reason | Comments | +--------+ + | Other | | +--------+ + Encounter Details +--------+ + + + + | Date | Type | Department | Care Team | Description | +--------+ + + + + | 09/27/ | Telephone | Orthopaedics at | Kalyan Arias MD | Other | | 2007 | | [facility] [address] | [address] | | | | | [address] | [place] | | | | | Mailcode: [id number] | [place], [place] | | | | | [facility] | [address] | | | | | [place], [place] | [phone] | | | | | [address] | | | | | | [phone] | | | +--------+ + + + [...] + | JUAN DAVID (total hip arthroplasty) - Primary Hip joint replacement by other means | + + documented in this encounter"
--- OUTSIDE RECORDS SUMMARY | ~2020-03-28 | XMS | Encounter Summary ---
Demographics + + + | Address | [address] | | | [place] [address] | + + + | Home Phone | | + + + | Preferred Language | Unknown | + + + | Marital Status | | + + + | Taoist Affiliation | [id number] | + + + | Race | Unknown | + + + | Ethnic Group | Unknown | + + + Author + + + | Author | [facility] | | | and [place] | + + + | Organization | [facility] | | | [...] Team Providers + +------+ + | Care Commercial Energy Auditor Name | Role | Phone | + +------+ + | Jaimie Monreal MD | PCP | | + +------+ + Reason for Visit + + + | Reason | Comments | + + + | Follow-up | | + + + Encounter Details +--------+---------+ + + + | Date | Type | Department | Care Team | Description | +--------+---------+ + + + | 03/24/ | Office | [facility] | Xiang Sepulveda, | Back pain, | | 2019 | Visit | [facility] | DO [address] | unspecified back | | | | [address] | [place], [place] | location, | | | | [address] | [phone] | unspecified back | | | | [place], [place] | | pain laterality, | | | | [address] | | unspecified | | | | [phone] | | chronicity (Primary | | | | | | Dx); Morbid obesity | | | | | | with BMI of | | | | | | 50.0-59.9, adult | | | | | | (HCC); DDD | | | | | | (degenerative disc | | | | | | disease), lumbar; | | | | | | Facet arthropathy, | | | | | | lumbar; | | | | | | Osteoarthritis of | | | | | | lumbar spine, | | | | | | unspecified spinal | | | | | | osteoarthritis | | | | | | complication status; | | | | | | Hip pain, chronic, | | | | | | left; | | | | | | Osteoarthritis, | | | | | | unspecified | | | | | | osteoarthritis type, | | | | | | unspecified site; | | | | | | Chronic pain | | | | | | syndrome; Other | | | | | | chronic pain | +--------+---------+ + + + Social History + +-------+ [...] + + + | Blood Pressure | 156/85 | 03/24/2020 10:48 AM | | | | | PDT | | + + + + + | Pulse | 114 | 03/24/2020 10:48 AM | | | | | PDT | | + + + + + | Temperature | 36.7 C (98.1 F) | 03/24/2020 10:48 AM | | | | | PDT | | + + + + + | Respiratory Rate | 24 | 03/24/2020 10:48 AM | | | | | PDT | | + + + + + | Oxygen Saturation | 96% | 03/24/2020 10:48 AM | | | | | PDT | | + + + + + | Inhaled Oxygen | - | - | | | Concentration | | | | + + + + + | Weight | - | - | | + + + + + | Height | 164.5 cm (5' 4.75") | 03/24/2020 10:48 AM | | | | | PDT | | + + + + + | Body Mass Index | - | - | | + + + + + documented in this encounter Progress Notes Xiang Sepulveda, DO - 03/24/2020 11:20 AM PDTFormatting of this note might be different fr om the original. CHRONIC PAIN VISIT Patient ID: Shelby Galdamez is a 60 y.o. female (: 1960). Subjective: Chronic Pain: The primary encounter diagnosis was Back pain, unspecified back location, unspecified back pain laterality, unspecified chronicity. Diagnoses of Morbid obesity with BMI of 50.0-59.9, adult (HCC), DDD (degenerative disc disease), lumbar, Facet arthropathy, lumbar, Osteoarthri tis of lumbar spine, unspecified spinal osteoarthritis complication status, Hip pain, chroni c, left, Osteoarthritis, unspecified osteoarthritis type, unspecified site, and Chronic pain syndrome were also pertinent to this visit. Shelby Galdamez presents for chronic pain evaluation and management. This would includ e use of opioid and non-opioid pain medications, nonsteroidal anti-inflammatory medications , muscle relaxants, and neuro modulating agents, as deemed necessary and appropriate This w ould also include the use of physical modalities, such as heat, ice, electrical stimulation, TENS unit, and/or referral to Allied health professionals including but not limited to phys ical therapy, child care provider, acupuncture, massage therapy, and nutritional health counse lors. and mental health counselors as deemed necessary Today's Pain Score: 10 - Worst pain ever/10. Patient states that her pain overall is unch anged on her current regimen. The patient reports cold weather and moisture worsens symptoms , and moist heat, pain medication and muscle relaxants relieves symptoms. Additional psycho -social events since last visit include: none. The patient's current personal goal of pain management is: " Patient will need to be pain-free". Things she is doing to reach that goa l include: Exercise program and outpatient physical therapy if available. Progress toward m eeting that goal has been: fair to poor. Medication FYI Flag Type Author Status Filed Medication Agreement Antonella Sprague, Professional Poker Player Active 11/25/2019 10:52 AM Pain Contract- Dr. Sepulveda 11/25/2019 PEG Pain screening tool (Pain, enjoyment, general activity) Total score: (Printable questionnaires in Mohawk ) Interpretation of Total Score: PEG scores are used to track changes over time. It should de crease after therapy has begun. Last 4 PEG Scores: No flowsheet data found. Opioid Risk Tool (ORT): Total Score Temp: 36.7 C (98.1 F) Temp Source: Oral Pulse: 114 Resp: 24 BP: 156/85 SpO2: 96 % (From Chronic Pain tab; printable questionnaires in Mohawk) Interpretation of Total Score: 0 to 3 = Low risk: 6% chance of developing problematic behav iors, 4 to 7 = Moderate risk: 28% chance of developing problematic behaviors, 8 or more = Hi gh risk: 90% chance of developing problematic behaviors. No flowsheet data found. Outpatient Morphine Equivalent Daily Dose (MEDD) 03/24/20 - 03/25/20 30 mg MEDD Order Name Dose Route Frequency Maximum MEDD oxyCODONE-acetaminophen (PERCOCET) 5-325 mg per tablet 1 tablet Oral EVERY 6 HOURS PRN 30 mg MEDD Total Potential Daily Morphine Equivalence 30 mg MEDD Calculation Information oxyCODONE-acetaminophen (PERCOCET) 5-325 mg per tablet oxyCODONE-acetaminophen 5-325 mg Tabs: single dose of 5 mg of opioid * 4 doses per day * m orphine equivalence factor of 1.5 = 30 mg MEDD 03/26/20 and after None Current Outpatient Medications: albuterol (VENTOLIN HFA) 90 mcg/puff inhaler, Inhale 1 puff every 6 hours as needed fo r shortness of breath, Disp: , Rfl: albuterol 90 mcg/puff inhaler, Inhale 1 puff every 6 hours as needed for shortness of breath, Disp: , Rfl: amLODIPine (NORVASC) 10 MG tablet, Take 10 mg by mouth., Disp: , Rfl: amLODIPine (NORVASC) 5 mg tablet, , Disp: , Rfl: diclofenac (VOLTAREN) 1% GEL, apply 4 grams topically four times a day, Disp: , Rfl: diclofenac (VOLTAREN) 75 mg EC tablet, Take 1 tablet by mouth 2 (two) times daily., Di sp: 60 tablet, Rfl: 3 docusate sodium (COLACE) 100 mg capsule, Take 100 mg by mouth every 12 hours as needed ., Disp: , Rfl: losartan (COZAAR) 100 MG tablet, Take 100 mg by mouth., Disp: , Rfl: naloxone (NARCAN) 4 mg/nasal spray, 1 spray by Nasal route as needed for Decreased Res ponsiveness (May repeat with second device into other nostril after 2 minutes)., Disp: 2 eac h, Rfl: 1 naproxen (NAPROSYN) 500 mg tablet, take 1 tablet by mouth twice a day for pain, Disp: , Rfl: omeprazole (PRILOSEC) 20 mg capsule, Take 20 mg by mouth Daily., Disp: , Rfl: oxyCODONE-acetaminophen (PERCOCET) 5-325 mg per tablet, Take 1 tablet by mouth every 6 hours as needed for Pain for up to 30 days., Disp: 120 tablet, Rfl: 0 Past Medical History: Diagnosis Date Arthritis bilateral shoulders Chronic pain COPD with asthma (HCC) Hypertension Other chronic pain Red Flags for Abuse/Misuse of Medication since last visit: Requests for early refills: no Loss of prescriptions: no Getting Opioids from Multiple Providers: no Failed Urine Drug Screen or inconsistent with current treatment: no Tobacco, Alcohol & Drug Use: Social History Tobacco Use Smoking status: Current Every Day Smoker Packs/day: 0.50 Years: 50.00 Pack years: 25.00 Smokeless tobacco: Current User Tobacco comment: 1 pack daily Substance Use Topics Alcohol use: No Social History Substance and Sexual Activity Drug Use Yes Frequency: 2.0 times per week Types: Marijuana Comment: Drug use: Yes Mood Screening: PHQ-9 Depression Scale10 (5-9 = Mild, 10-14 = Moderate, 15-19 = Moderately Severe, 20-27 = Severe) Anxiety Scale13 (5-9 = Mild, 10-14 = Moderate, 15-21 = Severe Anxiety) Additional Problems: HPI , lumbar facet arthropathy, degenerative disc disease lumbar spine, morbid obesity, chronic low back pain, chronic bilateral hip pain left greater than right. Degenerative joint dise ase multiple joints multiple sites, chronic pain syndrome, long-term current use of opioid a nalgesics History: Past Medical History: Diagnosis Date Arthritis bilateral shoulders Chronic pain COPD with asthma (HCC) Hypertension Other chronic pain Patient Active Problem List Diagnosis Date Noted POA Chronic pain syndrome 04/09/2019 Unknown Decreased range of motion of hip 12/04/2017 Unknown Hip pain, chronic, left 12/04/2017 Unknown DDD (degenerative disc disease), lumbar 10/09/2017 Unknown Difficulty walking 10/09/2017 Unknown Facet arthropathy, lumbar 10/09/2017 Unknown Osteoarthritis of lumbar spine 10/09/2017 Unknown Radiculopathy of lumbar region 10/09/2017 Unknown Calculus of right ureter 11/25/2016 Unknown Obesities, morbid 11/25/2016 Unknown UTI (urinary tract infection) 11/25/2016 Unknown Morbid obesity with BMI of 50.0-59.9, adult 11/25/2016 Unknown HYPERLIPIDEMIA, MIXED Unknown HYPERTENSION, BENIGN ESSENTIAL Unknown Depression Unknown ABDOMINAL PAIN-GENERALIZED 03/06/2012 Unknown Obstructive sleep apnea 06/21/2011 Unknown Back pain 02/09/2009 Unknown Disorder of function of stomach 10/26/2008 Unknown Tobacco use 07/01/2008 Unknown Chronic pain 07/01/2008 Unknown Disorder of lipid metabolism 07/01/2008 Unknown Mixed, or nondependent drug abuse 07/01/2008 Unknown Osteoarthritis 07/01/2008 Unknown Essential hypertension 07/01/2008 Unknown Asthma 07/01/2008 Unknown Sleep apnea 07/01/2008 Unknown Past Surgical History: Procedure Laterality Date APPENDECTOMY CHOLECYSTECTOMY HYSTERECTOMY KNEE SURGERY Bilateral OTHER SURGICAL HISTORY Right OTHER SURGICAL HISTORY TONSILLECTOMY AND ADENOIDECTOMY URETEROSCOPY Right 11/25/2016 Procedure: RIGHT URETEROSCOPY W/ LASER LITHOTRIPSY RIGHT URETERAL STENT PLACEMENT. ; Surg andrés: Rustam Schmid MD; Location: [facility] MAIN OR Review of Systems Gastrointestinal: Negative. Genitourinary: Negative. Musculoskeletal: Positive for arthralgias, back pain and neck pain. Objective: Vital Signs: BP 156/85 | Pulse 114 | Temp 36.7 C (98.1 F) (Oral) | Resp 24 | Ht 1.6 45 m (5' 4.75") | SpO2 96% | BMI 48.46 kg/m Physical Exam 1-year-old female alert and oriented x4 no acute distress vital signs are sta ble bowel bladder continent no bowel issues with current medications. Patient is afebrile. Patient has no respiratory symptoms. Patient has not traveled to an endemic area the last 4 to 6 weeks. Current medications that we give include Percocet 10/325 1 p.o. 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 This wi ll be up to them and her primary care physician I explained. She does have an appointment w [facility] orthopedic surgery next week in [place]. Active range of motion bilateral upper extremities within functionless muscle strength is 4 /5. Active range of motion bilateral lower extremities within functional limits muscle strength is 4/5. Patient has difficulty standing on heels and toes. Complains mostly of hip and kn ee pain. Balance sitting is good, standing is fair plus. Patient utilizes a roller walker with all ambulation weightbearing as tolerated. Patient did request an increase of pain medication to however I am reluctant to do that at this time suggest that she continue with her other medications as prescribed as since narcot ic pain medications are not a substitute for appropriate activities of daily living at home care and does not seem to be the overwhelming issues regarding her ability to stay at home. Patient return to his office in 8 weeks for reevaluation perhaps a psychiatric consultatio n would be of benefit at this point in time I will leave it to her primary care physician Patient demonstrates improved functional status on above medication program., Including bu t not limited to activities of daily living, transfers, and mobility. Patient also recogniz es the importance of taking the medications as prescribed. and keeping their follow-up appo intments as scheduled. Assessment and Plan: Chronic pain issues are being controlled by the current treatment regimen. There have not b een concerns or red flags for improper use/abuse of medications since last visit. The patien t has been consistently compliant with her pain contract requirements. @ is actively doing t hings other than taking medication to help manage her pain. The Patient's ongoing expectations of chronic pain treatment were reviewed Her ongoing functional goals were reviewed. Medication side effects are tolerable. [place] PDMP reviewed, listed controlled substances are consistent with [facility] prescriptions and patient reported use. Controlled Medications: no change. Refills given as appropriate for the next 2 months, and she will follow up befor e next refill is due. Recent Review Flowsheet Data There is no flowsheet data to display. Pertinent Pain History: Chronic pain related to limbs that appear in the above history of present illness Helpful treatments: Moist heat and pain medication Failed treatments: Ice therapy ORT Score = 3 (0-3 = low risk, 4-7 = mod risk, 8+ = high risk) Daily Opioid Dose = Percocet 10/325 1 p.o. every 6 hours as needed pain Daily Morphine Equivalent Dose (MED) = 60 mg of morphine daily Chronic benzodiazepine use: no Pain Agreement (date): {YES/ Visits every: 2 months Drug Screen every: 3 times a year Next Refill due: 30 days Follow-up: No follow-ups on file. Alternative treatment modalities where discussed and offered to patient including but not l imited to physical therapy, massage therapy, acupuncture, child care provider, along with jabari mmended psychological counseling, either privately, or in group sessions offered by private care individuals, community services, or jewish organizations. Appropriate referrals were made at patient and/or provider request Narcan was prescribed, when appropriate, and patient instructed in its use for emergency on ly. Patient and/or family were instructed in proper and safe medication storage and disposal. A list of authorized disposal sites was given to the patient, to use, if necessary Responsible narcotic and sedative use was discussed with our patient. Prescription medicat ions that are used on a "prn" basis should only be taken when the pain is severe. Potential side effects in addition to the potential for abuse and addiction were discussed. Most pat ients, including the general public, are not aware that a number of these medicines are FDA approved for the treatment of severe pain associated with cancer and were never intended for use in patients that had surgically correctable conditions. When the pain is mild or moderate, ice, stretching, and relaxation techniques are useful. Also medicines such as plain tylenol, ibuprofen and aspirin are more suitable for mild or mo derate pain. Our patient was encouraged to read the package inserts to their prescriptions and to discus s these medicines with their personal physician or pharmacist. Narcotics, sedatives, muscle relaxants and neuroleptics are not benign medicines. Common side effect include nausea, vo miting, constipation, drowsiness, dizziness, headache, sleeplessness, and weakness. Difficu lty with urinating, decreased libido, and sexual dysfunction are noted in men and women. Ma ny men will suffer erectile dysfunction with these medicines. Severe side effects including , heart attacks, strokes, seizures, and high fevers are noted from acute overdose or chronic overuse. Most patient develop tolerance to theses medi cines leading them to take more medicine for pain relief. This increasing tolerance leads t o a greater rate of side effects and complications with the passage of time. skilled nursing use is also associated with depressions, and liver and renal failure. Finally, these medicines are associated with both physical and emotional addiction and can be difficult to stop after taking for only a few weeks. Total time spent with the patient was 15 minutes of which more than 50 % was spent face to face, discussing above evaluation findings, treatment options and coordination of care with other health animal caretaker supervisor and monitoring labs results, other test results and imagin g including [facility] and/or [facility] prescription monitoring systems. This document has been created using [employer] software and [employer]. The entry has been reviewed for content and accuracy, but there may still exist "sound alike" wall taper word errors and/or unintended additions and deletions. If there is any question please contact the author of the document: Xiang Sepulveda DOElectronically sig felisha by Xiang Sepulveda DO at 03/24/2020 11:17 AM PDTdocumented in this encounter Plan of Treatment +--------+---------+ + + + | Date | Type | Specialty | Care Team | Description | +--------+---------+ + + + | 05/23/ | Office | Pain Medicine | Xiang Sepulveda, | | | 2019 | Visit | | [address] | | | | | | [place] | | | | | | [id number] | | | | | | | | +--------+---------+ + + + documented as of this encounter Visit Diagnoses + + | Diagnosis | + + | Back pain, unspecified back location, unspecified back pain laterality, unspecified | | chronicity - Primary | + + | Morbid obesity with BMI of 50.0-59.9, adult (HCC) | + + | DDD (degenerative disc disease), lumbar Degeneration of lumbar or lumbosacral | | intervertebral disc | + + | Facet arthropathy, lumbar Lumbosacral spondylosis without myelopathy | + + | Osteoarthritis of lumbar spine, unspecified spinal osteoarthritis complication status | + + | Hip pain, chronic, left | + + | Osteoarthritis, unspecified osteoarthritis type, unspecified site | + + | Chronic pain syndrome | + + | Other chronic pain | + + documented in this encounter
--- OUTSIDE RECORDS SUMMARY | ~2020-03-28 | XMS | Encounter Summary ---
Demographics + + + | Address | [address] | | | [place] [address] | + + + | Home Phone [...] Author + + + | Author | [facility] | + + + | Organization | [facility] | + + + | Address [...] Team Providers + +------+ + | Care Lure Maker Name | Role | Phone | + +------+ + PCP | Unavailable | + +------+ + Reason for Visit + + + | Reason | Comments | + + + | Preop | | + + + | Pre-op evaluation | | + + + Consult to [place] (Routine) +--------+--------+ + + + + | Status | Reason | Specialty | Diagnoses / | Referred By | Referred To | | | | | Procedures | Contact | Contact | +--------+--------+ + + + + | Closed | | Orthopedics | Diagnoses | Arias, | Arias, | | | | | | Kalyan Barrientos MD | Kalyan Barrientos MD | | | | | Osteoarthros | [address] | [address] | | | | | is, | [address] | [place] | | | | | unspecified | [address] | [address] [place], | | | | | whether | [place], [place] | [place] | | | | | generalized | [address] | [phone] | | | | | or | Phone: | Phone: | | | | | localized, | [phone] | [phone] | | | | | pelvic | Fax: | Fax: | | | | | region and | [phone] | [phone] | | | | | thigh | | | | | | | Osteoarthrit | | | | | | | is of Hip | | | | | | | Procedures | | | | | | | AR TOTAL HIP | | | | | | | | | | | | | | ARTHROPLASTY | | | | | | | AR | | | | | | | RECONSTRUC | | | | | | | HIP | | | | | | | SOCKET,RESEC | | | | | | | FEM HEAD | | | | | | | AR REMOVAL | | | | | | | OF ISCHIAL | | | | | | | BURSA AR | | | | | | | REMOVE TROCH | | | | | | | | | | | | | | BURSA/CALCIF | | | | | | | ICATN | | | | | | | excision of | | | | | | | heterotopic | | | | | | | ossification | | | | | | | and complex | | | | | | | JUAN DAVID, | | | | | | | implants to | | | | | | | be | | | | | | | determined. | | | +--------+--------+ + + + + Encounter Details +--------+---------+ + + + | Date | Type | Department | Care Team | Description | +--------+---------+ + + + | 08/16/ | Office | Orthopaedics at | Tesfaye Saenz | Other Specified | | 2007 | Visit | [facility] [address] | MEGAN Evangelista | Pre-Operative | | | | [address] | | Examination (Primary | | | | Mailcode: [id number] | | Dx) | | | | [facility] | | | | | | [place], [place] | | | | | | [address] | | | | | | [phone] | | | +--------+---------+ + + + [...] + + + | Blood Pressure | 120/80 | 08/16/2008 1:02 PM | | | | | PST | | + + + + + | Pulse | - | - | | + + + + + | Temperature | 36.4 C (97.6 F) | 08/16/2008 1:02 PM | | | | | PST [...] + + + + | Weight | 112.5 kg (248 lb) | 08/16/2008 1:02 PM | | | | | PST | | + + + + + | Height | 165.1 cm (5' 5") | 08/16/2008 1:02 PM | | | | | PST | | + + + + + | Body Mass Index | 41.27 | 08/16/2008 1:02 PM | | | | | PST | | + + + + + documented in this encounter Patient Instructions Patient Instructions Marita Carmen - 08/05/2008 2:16 PM PSTRegistration Locations (please ch carrol in at one of the following registration desks prior to surgery) For surgeries scheduled to take place on the [place] at the [facility]: Surgeries scheduled in the [facility] ([address] [place] [address]): registration is located on the 4th floor of [facility] (Day Surgery). Surgeries scheduled in the [facility]: registration is located on the 9th floor. Surgeries scheduled in [facility]: registration is located on the 6th floor. Surgeries scheduled in the [facility]: registration is located i n the [facility] on the first floor. For surgeries scheduled to take place at the [facility]: registration is l ocated on the 4th floor (Surgery Center). Important Information Due to the increased prevalence of pests in our community, we are asking patients to partne r with us to keep our hospital clean. If you have noticed bugs or other pests in your home, on your belongings or on your body, please contact your doctor's office prior to your admis estefani. For your safety and protection, please limit what you bring to the hospital. All valuables should be left at home. This includes pillows, blankets, clothing, purses, wallets, money an d jewelry. Patients may not bring personal electronics into the hospital, including hairdry ers, electric lynnette, radios and CD players. If you use specialized medical equipment at [facility], please check with your provider before bringing it with you into the hospital. Registration Process for all Admissions/Surgeries Please bring your insurance card(s) with you and be prepared to pay any co-payment, co-insu nedra or deposit that may be required. Once you arrive at the registration desk, you will be interviewed by a Patient Access Servi ce Specialist (FERNANDO). Demographics will be verified (example: name, date of , Social Se curity Number, address, insurance). You will be asked to sign some paperwork: Terms and Conditions of Service, Notice of Privac y Practices Acknowledgement and Genetic Testing Opt Out. You will be given some paperwork: copies of any forms signed by you, Patient Rights, Respon sibilities and Safety, Understanding Advance Directives, and Smoking Cessation Brochure. Registration Locations (please check in at one of the following registration desks prior to surgery) For surgeries scheduled to take place on the [place] at the [facility]: Surgeries scheduled in the [facility] ([address] [place] [address]): registration is located on the 4th floor of [facility] (Day Surgery). Surgeries scheduled in the [facility]: registration is located on the 9th floor. Surgeries scheduled in [facility]: registration is located on the 6th floor. Surgeries scheduled in the [facility]: registration is located i n the [facility] on the first floor. For surgeries scheduled to take place at the [facility]: registration is l ocated on the 4th floor (Surgery Center). Important Information Due to the increased prevalence of pests in our community, we are asking patients to partne r with us to keep our hospital clean. If you have noticed bugs or other pests in your home, on your belongings or on your body, please contact your doctor's office prior to your admis estefani. For your safety and protection, please limit what you bring to the hospital. All valuables should be left at home. This includes pillows, blankets, clothing, purses, wallets, money an d jewelry. Patients may not bring personal electronics into the hospital, including hairdry ers, electric lynnette, radios and CD players. If you use specialized medical equipment at [facility], please check with your provider before bringing it with you into the hospital. Registration Process for all Admissions/Surgeries Please bring your insurance card(s) with you and be prepared to pay any co-payment, co-insu nedra or deposit that may be required. Once you arrive at the registration desk, you will be interviewed by a Patient Access Servi ce Specialist (FERNANDO). Demographics will be verified (example: name, date of , Social Se curity Number, address, insurance). You will be asked to sign some paperwork: Terms and Conditions of Service, Notice of Privac y Practices Acknowledgement and Genetic Testing Opt Out. You will be given some paperwork: copies of any forms signed by you, Patient Rights, Respon sibilities and Safety, Understanding Advance Directives, and Smoking Cessation Brochure. documented in this encounter Progress Notes Tesfaye Saenz - 08/16/2008 1:10 PM PSTFormatting of this note might be different fr om the original. Pre-Procedure History and Physical Date of Admission: 09/06/08 SUBJECTIVE: Shelby Galdamez is here today for pre-operative evaluation. She has had right deep groin cr ease and buttock pain for 4 years. She has undergone multiple surgeries on right hip includ ing initially a cheilectomy, followed by ORIF of greater troc non-union, and multiple I&D's with wound vac placement because of subsequent post op wound infection. This infection has s calvin been cleared with adjunct faculty for medical terminology antibiotics. In this time she has also developed a large H O formation at the right hip. She is now indicated for a Right Hip JUAN DAVID and HO excision. She expresses that she does not want an epidural because she was unhappy with one she had in th e past. Their orthopaedic history is unchanged from previous visit. The past medical history, medi cations, allergies, surgical history, and social history were reviewed and updated in Epic. Patient's medical history includes Sleep apnea for which she uses a CPAP machine and asthma for which she uses an albuterol inhaler. She is a smoker (1/2 pack per day) and has BMI of 41 (morbidly obese). She denies diabetes, current anticoagulation therapy, h/o blood clots, recent fevers/illnes s, previous complications with anesthesia, blood transfusion within the last 90 days, and la alexei allergy. She has been taking Vicodin PRN preoperatively. ALLERGIES: Allergies Allergen Reactions Lipitor (Atorvastatin Calcium) Sulfa (Sulfonamides) Intestinal upset. Adhesive Tape Rash ROS: - Respiratory: Intermitent chronic cough but denies dyspnea, wheezing. - Cardiovascular: No chest pain, palpitations, syncope, edema - Gastrointestinal: No abdominal pain, nausea or vomiting - Genitourinary: No dysuria, hematuria - Neurologic: No disturbance of motor or sensory function - Skin: No recent rashes, sores, ulcers, wounds or skin changes - Heme: No abnormal bruising, abnormal bleeding, blood clots - ID: No fevers, persistent infections, recent antibiotic usage OBJECTIVE: - Last Vitals: BP 120/80 | Temp (Src) 36.4 C (97.6 F) (Oral) | Ht 1.651 m (5' 5") | Wt 112.492 kg (248 lb) - Cardiac: regular rate and rhythm - Chest: No signs of respiratory distress. Regular respiratory rate and rhythm. - Skin: Previous surgical incision but skin intact without erythema or lesions at surgical site. Remainder of physical exam deferred to PAT clinic. PROVISIONAL DIAGNOSIS: Right hip OA and extensive HO of right hip PLAN: - JUAN DAVID and HO excision of right side is scheduled for 09/06/08. - They will proceed to the PAT clinic for further testing and physical examination. Pt is t o discuss the type of anesthesia to be used (epidural, etc) with PAT clinic. - Consult respiratory because of sleep apnea. Instructed patient to bring CPAP machine day of surgery. - A PARQ session was held, additional questions were answered. We specifically discussed the risks of infection, bleeding, DVT/PE, damage to surrounding structures, fracture, leg le ngth discrepency, cardiac complications and the general recovery period. She understands the se risks and wishes to proceed with surgery. - After PARQ was held, the patient freely signed the consent form. - First follow up will be approximately 2 weeks post-operatively with the PA. - X-rays will not be required at the 2 week post-op visit - She was encouraged to call our office with any questions or concerns prior to the next vi sit. HISTORY: CURRENT PROBLEM LIST: Patient Active Problem List Diagnoses Date Noted Osteoarthritis of Hip [715.15L] 02/11/2006 HIP PAIN [719.45F] 11/15/2005 BACK PAIN [724.5E] 11/15/2005 Past Medical History Diagnosis Date Asthma Abnormal Reflex gag Acid Reflux SOB (Shortness of Breath) Morbid Obesity Past Surgical History Procedure Date Dislocated hip Pr removal gallbladder Hx hysterectomy Hx tonsil and adenoidectomy Hx section Hx surgery right pinky finger MEDICATIONS: Current outpatient prescriptions Medication Sig Dispense Refill ALBUTEROL SULFATE 200 MCG CAPS WITH INHALATION DEVICE inhale the contents of one capsul e by inhalation route every 4 hours as needed CYCLOBENZAPRINE 10 MG TAB take 1 tablet (10mg) by oral route 2 times per day LISINOPRIL-HYDROCHLOROTHIAZIDE 20 MG-12.5 MG TAB take 1 tablet by oral route once daily LOVASTATIN 10 MG TAB take 1 tablet (10mg) by oral route once daily with evening meal RANITIDINE 150 MG CAP take 1 capsule (150mg) by oral route 2 times per day Allergies Allergen Reactions Lipitor (Atorvastatin Calcium) Sulfa (Sulfonamides) Gives intestinal flu Adhesive Tape FAMILY HISTORY: No family history on file. REVIEW OF SYSTEMS: see above PHYSICAL EXAM:see Above VITALS: Visit Vitals Item Reading BP 120/80 Temp (Src) 36.4 C (97.6 F) (Oral) Ht 1.651 m (5' 5") Wt 112.492 kg (248 lb) PROVISIONAL DIAGNOSIS: see above PLANNED COURSE OF ACTION: see above PARQ: see above. [facility] umeunice in this encounter Plan of Treatment + +------+--------+ + + | Name | Type | Priori | Associated Diagnoses | Order Schedule | | | | ty | | | + +------+--------+ + + | PRODUCT- RED CELLS | Lab | Routin | Other Specified | Ordered: 08/16/2008 | | LEUKOREDUCED | | e | Pre-Operative | | | | | | Examination | | + +------+--------+ + + documented as of this encounter Procedures + +--------+ + + + | Procedure Name | Priori | Date/Time | Associated Diagnosis | Comments | | | ty | | | | + +--------+ + + + | PRODUCT - RED CELLS | Routin | 08/16/2008 | | Results for this | | LEUKOREDUCED | e | 2:11 PM | | procedure are in the | | | | PST | | results section. | + +--------+ + + + documented in this encounter Results COMPLETE METABOLIC SET (NA,K,CL,CO2,BUN,CREAT,GLUC,CA,AST,ALT,BILI TOTAL,ALK PHOS,ALB,PROT TOTAL) (08/16/2008 3:46 PM PST) + +--------+ + + + | Component | Value | Ref Range | Performed | Pathologist | | | | | At | Signature | + +--------+ + + + | GLUCOSE, | 86 | 60 - 99 mg/dL | [facility] | | | PLASMA | | | DEPARTMENT | | | (LAB) | | | OF | | | | | | PATHOLOGY | | + +--------+ + + + | BUN, PLASMA | 9 | 6 - 20 mg/dL | [facility] | | | (LAB) | | | DEPARTMENT | | | | | | OF | | | | | | PATHOLOGY | | + +--------+ + + + | CREATININE | 0.67 | 0.60 - 1.10 | [facility] | | | PLASMA | | mg/dL | DEPARTMENT | | | (LAB) | | | OF | | | | | | PATHOLOGY | | + +--------+ + + + | TOTAL | 7.0 | 6.1 - 7.9 g/dL | [facility] | | | PROTEIN, | | | DEPARTMENT | | | PLASMA | | | OF | | | (LAB) | | | PATHOLOGY | | + +--------+ + + + | ALBUMIN, | 3.6 | 3.5 - 4.7 g/dL | [facility] | | | PLASMA | | | DEPARTMENT | | | (LAB) | | | OF | | | | | | PATHOLOGY | | + +--------+ + + + | CALCIUM, | 9.3 | 8.6 - 10.2 | [facility] | | | PLASMA | | mg/dL | DEPARTMENT | | | (LAB) | | | OF | | | | | | PATHOLOGY | | + +--------+ + + + | BILIRUBIN | 0.7 | 0.3 - 1.2 mg/dL | [facility] | | | TOTAL | | | DEPARTMENT | | | | | | OF | | | | | | PATHOLOGY | | + +--------+ + + + | ALK PHOS | 82 | 42 - 98 U/L | [facility] | | | | | | DEPARTMENT | | | | | | OF | | | | | | PATHOLOGY | | + +--------+ + + + | AST(SGOT) | 14 (L) | 15 - 41 U/L | [facility] | | | | | | DEPARTMENT | | | | | | OF | | | | | | PATHOLOGY | | + +--------+ + + + | SODIUM, | 139 | 134 - 143 | [facility] | | | PLASMA | | mmol/L | DEPARTMENT | | | (LAB) | | | OF | | | | | | PATHOLOGY | | + +--------+ + + + | POTASSIUM, | 3.7 | 3.4 - 5.0 | [facility] | | | PLASMA | | mmol/L | DEPARTMENT | | | (LAB) | | | OF | | | | | | PATHOLOGY | | + +--------+ + + + | CHLORIDE, | 104 | 97 - 108 mmol/L | [facility] | | | PLASMA | | | DEPARTMENT | | | (LAB) | | | OF | | | | | | PATHOLOGY | | + +--------+ + + + | TOTAL CO2, | 26 | 23 - 31 mmol/L | [facility] | | | PLASMA | | | DEPARTMENT | | | (LAB) | | | OF | | | | | | PATHOLOGY | | + +--------+ + + + | ALT (SGPT) | 18 | 13 - 48 U/L | [facility] | | | | | | DEPARTMENT | | | | | | OF | | | | | | PATHOLOGY | | + +--------+ + + + + + | Specimen | + + | Blood - Blood | + + + + + | Narrative | Performed At | + + + | [id number] Estimated GFR > 60 mL/min/1.73 sq m if non- | [facility] | | [place] [id number] Estimated GFR > 60 mL/min/1.73 sq m if | DEPARTMENT OF | | [facility] [place] GFR is estimated using the MDRD equation recommended by | PATHOLOGY | | the National Kidney Disease Education Program. Estimated GFR | | | Interpretive Information: <60 mL/min/1.73 sq m Chronic Kidney | | | Disease <15 mL/mon/1.73 sq m Kidney Failure Estimated GFR | | | greater than 60mL/min/1.73 is of limited clinical Value. The MDRD | | | equation is not valid in the following situations: - Patients under | | | 18 years of age - Severe malnutrition or obesity - Vegetarian diet | | | - Rapidly changing kidney function New Creatinine Reference | | | ranges effective 06/02/08. | | + + + + + + + + | Performing | Address | City/State/Zipcode | Phone Number | | Organization | | | | + + + + + | [facility] | [address] | [place] [address] | | | PATHOLOGY | [address] | | | + + + + + | [facility] | [address] | [place] [address] | | | PATHOLOGY | [address] | | | + + + + + CBC ONLY (08/16/2008 3:46 PM PST) + + + + + + | Component | Value | Ref Range | Performed | Pathologist | | | | | At | Signature | + + + + + + | WHITE CELL | 14.7 (H) | 4.4 - 11.0 K/cu | [facility] | | | COUNT | | mm | DEPARTMENT | | | | | | OF | | | | | | PATHOLOGY | | + + + + + + | RED CELL | 4.72 | 4.00 - 5.20 | [facility] | | | COUNT | | M/cu mm | DEPARTMENT | | | | | | OF | | | | | | PATHOLOGY | | + + + + + + | HEMOGLOBIN | 13.7 | 12.0 - 16.0 | [facility] | | | | | g/dL | DEPARTMENT | | | | | | OF | | | | | | PATHOLOGY | | + + + + + + | HEMATOCRIT | 39.8 | 36.0 - 46.0 % | [facility] | | | | | | DEPARTMENT | | | | | | OF | | | | | | PATHOLOGY | | + + + + + + | MCV | 84.4 | 80.0 - 96.0 fL | [facility] | | | | | | DEPARTMENT | | | | | | OF | | | | | | PATHOLOGY | | + + + + + + | MCHC | 34.4 | 33.4 - 35.5 | [facility] | | | | | g/dL | DEPARTMENT | | | | | | OF | | | | | | PATHOLOGY | | + + + + + + | RDW | 14.2 | 11.5 - 15.0 % | [facility] | | | | | | DEPARTMENT | | | | | | OF | | | | | | PATHOLOGY | | + + + + + + | PLATELET | 383 | 150 - 400 K/cu | [facility] [...] | + + + + + | [facility] | [facility] | [place] [address] | | | PATHOLOGY | [address] | | | + + + + + | [facility] | [address] [facility] | [place] [address] | | | PATHOLOGY | [address] | | | + + + + + TYPE AND SCREEN (08/16/2008 3:46 PM PST) + + + + + + | Component | Value | Ref Range | Performed | Pathologist | | | | | At | Signature | + + + + + + | ABO GROUP | A | | [facility] | | | | | | DEPARTMENT | | | | | | OF | | | | | | PATHOLOGY | | + + + + + + | RH TYPE | Positive | | [facility] | | | | | | DEPARTMENT | | | | | | OF | | | | | | PATHOLOGY | | + + + + + + | Antibody | Negative | | [facility] | | | Screen | | | DEPARTMENT | | | [...] | + + + + + | [facility] DEPARTMENT OF | [facility] | [place] [address] | | | PATHOLOGY | [address] | | | + + + + + | [facility] DEPARTMENT OF | [facility] | [place] [address] | | | PATHOLOGY | [address] | | | + + + + + PRODUCT- RED CELLS LEUKOREDUCED (08/16/2008 2:11 PM PST) + + + + + + | Component | Value | Ref Range | Performed | Pathologist | | | | | At | Signature | + + + + + + | PRODUCT | -1 RED BLOOD | | [facility] | | | DESCRIPTION | CELLS,ADENINE-SALINE | | DEPARTMENT | | | | ADDED,LEUKOCYTES REDUCED | | OF | | | | | | PATHOLOGY | | + + + + + + | PRODUCT | [id number] | | [facility] | | | UNIT # | | | DEPARTMENT | | | | | | OF | | | | | | PATHOLOGY | | + + + + + + | UNIT ABO | A | | [facility] | | | | | | DEPARTMENT | | | | | | OF | | | | | | PATHOLOGY | | + + + + + + | UNIT RH | POS | | [facility] | | | | | | DEPARTMENT | | | | | | OF | | | | | | PATHOLOGY | | + + + + + + | STATUS OF | Returned to Blood Bank | | [facility] | | | UNIT | | | DEPARTMENT | | | | | | OF | | | | | | PATHOLOGY | | + + + + + + + + | Specimen | + + | | + + + + + | Narrative | Performed At | + + + | Ordered by an unspecified provider. | [facility] | | | DEPARTMENT OF | | | PATHOLOGY | + + + + + + + + | Performing | Address | City/State/Zipcode | Phone Number | | Organization | | | | + + + + + | [facility] | [address] [facility] | [place] [address] | | | PATHOLOGY | [address] | | | + + + + + | [facility] | [address] [place] [address] | [place] [address] | | | PATHOLOGY | [address] | | | + + + + + documented in this encounter Visit Diagnoses + + | Diagnosis | + + | Other specified pre-operative examination - Primary | + + documented in this encounter
--- OUTSIDE RECORDS SUMMARY | ~2020-03-28 | XMS | Encounter Summary ---
Demographics + + + | Address | [address] | | | [place] [address] | + + + | Home Phone | | + + + | Preferred Language | Unknown | + + + | Marital Status | Single | + + + | Latter-Day Affiliation | PRE | + + + [...] + | Casandra Smith | ROBERTO | [place] | | + + + + + Care Team Providers + +------+ + | Care Film Librarian Name | Role | Phone | + +------+ + | Marta Jenkins SENIOR ASSOCIATE | PCP | | + +------+ + Encounter Details +--------+ + + + + | Date | Type | Department | Care Team | Description | +--------+ + + + + | 11/18/ | Abstract | [facility] | Clinic, Surgery | | | 2019 | | [facility] [address] | | | | | | [address] | | | | | | Mailcode: [place] | | | | | | [facility] | | | | | | [facility]aling, [address] | | | | | | [facility] [place] | | | | | | [address] | | | | | | [phone] | | | +--------+ + + + [...]
--- OUTSIDE RECORDS SUMMARY | ~2020-03-28 | XMS | Encounter Summary ---
Demographics + + + | Address | [address] | | | [place] [address] | + + + | Home Phone | | + + + | Preferred Language | Unknown | + + + | Marital Status | Single | + + + | Anabaptism Affiliation | PRE | + + + [...] Team Providers + +------+ + | Care Supervisor [employer]actor [employer]ing Name | Role | Phone | + [...] | | | | | or | [address] | Pavilion | | | | | localized, | | [place], [place] | | | | | pelvic | | [address] | | | | | region and | | Phone: | | | | | thigh | | [phone] | | | | | Intervertebr | | Fax: | | | | | al lumbar | | [phone] | | | | | disc | [...] Pavilion | | | | | | [place], [place] | | | | | | [address] | | | | | | [phone] | | | +--------+---------+ + + + [...] tenderness. Severe gluteus medius limp. Most recent [facility] Laboratory Studies: Normal C-reactive protein at 0.5 (02/10/04), normal [facility] te cell count at 9.4 & [...] this done around the time of the [place]-up so she can enjoy shopp ing. [...] hip arthroplasty if needed. Lloyd Garcia M.D. Internet Cafe Manager, Orthopedics and Rehabilitation documented in this encount [...] | | + +---------+ + + | [facility] DEPARTMENT OF | | | | | [...] | | + +---------+ + + | [facility] DEPARTMENT OF | | | | | [...]
--- OUTSIDE RECORDS SUMMARY | ~2020-03-28 | XMS | Encounter Summary ---
Demographics + + + | Address | [address] | | | [place] [address] | + + + | Home Phone [...] Team Providers + +------+ + | Care Corduroy Cutter Operator Name | Role | Phone [...] | Procedures | Roxann Ayala | [place], | | | | | CONSULT TO | [place], [place] | [place] | | | | | ORTHOPEDICS | | | | | | | AND | Phone: | Phone: | | | | | REHABILITATI | [phone] | [phone] | | | | | ON | Fax: | Fax: | | | | | | [phone] | [phone] | +--------+--------+ + + + + Diagnostic [...] | | y | [address] [facility] | | | | | Procedures | Roxann Ayala | Research | | | | | MRI SPINE | [place], [place] | Center | | | | | LUMBAR WO | | [place], [place] | | | | | CONT | Phone: | [phone] | | | | | | [phone] | Phone: | | | | | | Fax: | [phone] | | | | | | [phone] | Fax: | | | | | | | [phone] | +--------+--------+ + + + + Reason [...] | | | Orthopedics | | | [address] [facility] | | | | | | | [address] | | | | | | | [place], | | | | | | | [place] | | | | | | | [address] | | | | | | | Phone: | | | | | | | [phone] | | | | | | | Fax: | | | | | | | [phone] | +--------+--------+ + + + + Encounter [...] | | | | Mailcode: [id number] | [place], [place] | | | | | [facility] | [address] | | | | | [place], [place] | [phone] | | | | | [address] | | | | | | [phone] | | | +--------+---------+ + + + [...] and plan of care. TYRONE COLBY MD [facility] ORTHOPA[facility]ICS & REHABILITATION [address] [place] [address] Mailcode: Pv430 [facility] [address] Taz Grider M D - 07/06/2010 9:32 [...] of | | | | | | [id number]/superior | | | | | | corner, [...]
--- OUTSIDE RECORDS SUMMARY | ~2020-03-28 | XMS | Encounter Summary ---
Demographics + + + | Address | [address] | | | [place] [address] | + + + | Home Phone | | + + + | Preferred Language | Unknown | + + + | Marital Status | Single | + + + | Buddhism Affiliation | PRE | + + + [...] Team Providers + +------+ + | Care Physician General Internal Medicine Name | Role | Phone | + +------+ + PCP | Unavailable | + +------+ + Encounter Details +--------+ + + + + | Date | Type | Department | Care Team | Description | +--------+ + + + + | 09/13/ | Procedure - | | Record, Operation [...] + + | OPERATION RECORD | | 09/13/2003 | | Results for this | | | | | | procedure are in the | | | | | | results section. | + +--------+ + + + documented in this encounter Results OPERATION RECORD (09/13/2003) + + | Transcriptions | + + | Interface, Wharf Attendant In - 02/27/2006 3:05 AM PDT Date: | | 09/13/2003Attending Surgeon: Lloyd Garcia M.D.Assistants: | | Benson Boone M.D.Preoperative Diagnosis(es): Right | | greater trochanter avulsion.Postoperative Diagnosis(es): Right greater | | trochanteravulsion.Operations Performed: Open reduction and | | internalfixation of the right greater trochanter.Findings: | | Anthony titanium greatertrochanteric reattachment claw plate using two 4.0 mm titanium | | cancellousscrews and two 3.5 mm cortical screws.Anesthesia: | | General endotracheal anesthesia.Estimated Blood Loss: 150 | | cc.Intravenous Fluid: 3500 cc.Urine Output: | | 100 cc per Arreaga.Cultures: None.Specimen(s) Removed: | | None.Drains: One Hemovac.Complications: | | None.Indications: This is a | | 43-year-old woman whounderwent a cheilectomy for right femoral head osteophytes. The | | patient isstatus post her operation approximately four weeks ago, which she underwenta | | triradiate approach for. During this surgery, she had a right greatertrochanteric | | osteotomy for appropriate exposure. During the operation, thetrochanter was | | reapproximated via two 6.5 cancellous lag screws.Unfortunately, during the patient's | | postoperative visit, it was noted thather osteotomy site had lost its fixation and she | | had a free-floatingproximal greater trochanteric bone fragment. She was thus indicated | | for anopen reduction and internal fixation of her greater trochanter.Procedure: | | The patient was properly identified katarina preoperative hold area and | | brought to operating room #8. She was placedin a supine position where she had general | | endotracheal anesthesia. Thepatient was placed then on her left lateral decubitus | | position on abeanbag. Attention was then turned to her right hip, where it was | | preppedand draped in a normal sterile fashion. Then, made an incision through | | theanterior limb of her triradiate approach. This was approximately a 10 cmincision, | | which was initially made with a skin knife. We then Bovied downthrough her subcutaneous | | tissue and breached her fascia lv. We excisedthe old sutures at this level and then | | exposed the greater trochanter. Wewere able to see the insertion of the gluteus medius | | as well as the vastuslateralis. We excised the old interval that went between the two | | musclebellies. The proximal greater trochanter fragment was identified and waspulled | | down with the aid of bone clamp.The distal greater trochanter piece attached to the | | femur was thoroughlyirrigated and d brided with the use of curettes and osteotomes. | | Theundersurface of the proximal greater trochanter fragment was also cleansedin the same | | manner. With the use of fluoroscopy, we were able toreapproximate the greater | | trochanter using two provisional Steinmann pinsplaced superior to inferior position. We | | then used a small Anthony titaniumgreater trochanteric claw plate and placed it on | | greater trochantersegment. Once we were satisfied with the alignment, both in AP and | | lateralplanes, we made sure that we cleared off the remaining soft tissuesoverlying the | | lateral femoral metaphysis to ensure flush approximation ofthe claw plate.We then went | | ahead and placed two 4 mm titanium screws proximally and two3.5 mm cortical screws | | distally. The alignment was then checked underfluoroscopy again and the patient's hip | | was ranged under anesthesia. Theplate showed that it was well approximated against the | | bone and the greatertrochanter piece was stable as a unit. We then used allograft matrix | | tobone graft the undersurface of the proximal greater trochanteric fragment,which also | | happened to be fractured in half.The patient then had immediate Hemovac placed and the | | wounds were closedusing 0-0 Vicryl through the muscular and tensor fascia intervals. We | | used2-0 interrupted Vicryl through the subcutaneous tissues. And then the skinwas | | stapled. The incisions were covered with Xeroform, flats, ABD andMefix tape. The | | patient was then awakened from anesthesia and taken to thepostoperative recovery room | | where she was awakened in a normal fashion.Disposition: 1. The patient is to be toe | | touch weightbearing on the right lower extremity. 2. She is to wear an abduction | | brace at all times. 3. She is to start in indomethacin 25 mg p.o. t.i.d. 4. She can | | be out of bed as tolerated. 5. She will be on Ancef 1 gram intravenous q. 8 hours. | | Jose was present for the entire case.Malcom Mackenzie | | Malcom GarciaRT/aceD: 09/14/2003T: 09/15/2003 9:10 [id number] | |bellberna. The proximal greater trochanter fragment was identified and was | |pulled down with the aid of bone clamp. | | | |The distal greater trochanter piece attached to the femur was thoroughly | |irrigated and d brided with the use of curettes and osteotomes. The | |undersurface of the proximal greater trochanter fragment was also cleansed | |in the same manner. With the use of fluoroscopy, we were able to | |reapproximate the greater trochanter using two provisional Steinmann pins | |placed superior to inferior position. We then used a small Anthony titanium | |greater trochanteric claw plate and placed it on greater trochanter | |segment. Once we were satisfied with the alignment, both in AP and lateral | |planes, we made sure that we cleared off the remaining soft tissues | |overlying the lateral femoral metaphysis to ensure flush approximation of | |the claw plate. | | | |We then went ahead and placed two 4 mm titanium screws proximally and two | |3.5 mm cortical screws distally. The alignment was then checked under | |fluoroscopy again and the patient's hip was ranged under anesthesia. The | |plate showed that it was well approximated against the bone and the greater | |trochanter piece was stable as a unit. We then used allograft matrix to | |bone graft the undersurface of the proximal greater trochanteric fragment, | |which also happened to be fractured in half. | | | |The patient then had immediate Hemovac placed and the wounds were closed | |using 0-0 Vicryl through the muscular and tensor fascia intervals. We used | |2-0 interrupted Vicryl through the subcutaneous tissues. And then the skin | |was stapled. The incisions were covered with Xeroform, flats, ABD and | |Mefix tape. The patient was then awakened from anesthesia and taken to the | |postoperative recovery room where she was awakened in a normal fashion. | | | |Disposition: | | 1. The patient is to be toe touch weightbearing on the right lower | | extremity. | | 2. She is to wear an abduction brace at all times. | | 3. She is to start in indomethacin 25 mg p.o. t.i.d. | | 4. She can be out of bed as tolerated. | | 5. She will be on Ancef 1 gram intravenous q. 8 hours. | | | |Dr. Garcia was present for the entire case. | | | | | | | | | |Benson Boone M.D. Lloyd Garcia M.D. | | | |RT/magalie | | | | A | |[phone] | + + documented in this encounter Visit Diagnoses Not on filedocumented in this encounter"
--- OUTSIDE RECORDS SUMMARY | ~2020-03-28 | XMS | Encounter Summary ---
Demographics + + + | Address | [address] | | | [place] [address] | + + + | Home Phone | | + + + | Preferred Language | Unknown | + + + | Marital Status | | + + + | Alevism Affiliation | [id number] | + + + [...] Team Providers + +------+ + | Care Brake Engineer Name | Role | Phone | + +------+ + | Karli Hammonds | PCP | | | MD | | | + +------+ + Reason for Visit + +--------+ + | Reason | Onset | Comments | | | Date | | + +--------+ + | Appointment | 08/11/ | schedule procedure | | | 2011 | | + +--------+ + Encounter Details +--------+ + + + + | Date | Type | Department | Care Team | Description | +--------+ + + + + | 08/11/ | Telephone | [facility] | Augie Valdivia MD | Appointment | | 2011 | | GASTROENTEROLOGY | [address], [place] | (schedule procedure) | | | | [address] [place] | [address] [place] | | | | | [address] [place] | [address] | | | | | [address] | | | | | | [phone] | | | +--------+ + + + [...] this encounter Miscellaneous Notes Telephone Encounter - Isabella Roblero RN - 08/11/2012 10:11 AM PSTCalled patient back advise d that if we reschedule will need to prep over a couple days to make sure she is prepped manuel quately for the procedure advised will need to take mag citrate 2 days prior and then take t he prep the day before the procedure, advised will need to be on liquids only, advised the n ext day with anesthesia is Sep.12 she will discuss with her care provider and will call back if she wants to schedule. P [facility] Encounter - Lupe Sinha - 08/11/2012 9:26 AM PSTPatient is calling to schedule another procedure after two failed attempts. Patient's information is up to date in [employer].E lectronically signed by Lupe Sinha at 08/11/2012 9:28 AM PSTdocumented in this encounter Plan of [...] [place] | | | | | | [address] | | | | | | | | +--------+---------+ + + + documented as of this encounter Visit Diagnoses Not on filedocumented in this encounter"
--- OUTSIDE RECORDS SUMMARY | ~2020-03-28 | XMS | Encounter Summary ---
Demographics + + + | Address | [address] | | | [place] [address] | + + + | Home Phone | | + + + | Preferred Language | Unknown | + + + | Marital Status | Single | + + + | Yarsani Affiliation | PRE | + + + [...] Team Providers + +------+ + | Care Rock Lather Name | Role | Phone | + +------+ + PCP | Unavailable | + +------+ + Encounter Details +--------+ + + + + | Date | Type | Department | Care Team | Description | +--------+ + + + + | 11/03/ | Office | [facility] | Note, [...] as of this encounter Progress Notes Interface, Instructor Traffic Safety In - 08/28/2006 3:05 AM PSTCLINIC DATE: 11/03/1999 ORTHOPEDIC CLINIC HISTORY OF PRESENT ILLNESS: Shelby returns. She has undergone her lumbar spine MRI. She has had no change in her symptoms which primarily involve the right groin, anterior thigh, and buttock. Weightbearing is the worst activity for her. PHYSICAL EXAMINATION: She has extreme pain with range of motion of the right hip. She has negative straight leg raise. She is neurologically intact. Review of the MRI shows mild degenerative change at 4-5 and 5-1, but no evidence of neurologic compression throughout the thoracolumbar spine. 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 There is no evidence of neurologic claudication. I suspect almost all of her symptoms are due to the hip joint itself. PLAN: My recommendation is for consideration of total hip replacement. I do not think she is a good candidate for a hip fusion, although this could certainly be considered, given the absence of lumbar spine degenerative disease and her young age. At this point, I will not schedule a return appointment but will be talking to Dr. Gant. Benson Cooper M.D. / [id number] / [id number] / [id number] / [id number] C: 11/27/1999 kavita cc: Helio Noland M.D. Counts include 234 beds at the [facility] [address] Lloyd Garcia M.D. Department of Orthopedics documented in this encounter Plan of Treatment Not on filedocumented as of this encounter Visit Diagnoses Not on filedocumented in this encounter"
--- OUTSIDE RECORDS SUMMARY | ~2020-03-28 | XMS | Encounter Summary ---
Demographics + + + | Address | [address] | | | [place] [address] | + + + | Home Phone [...] Team Providers + +------+ + | Care Engineering Agent Name | Role | Phone | [...] | | | | is, | | [address] | | | | | unspecified | | [address] [place], | | | | | whether | | [place] | | | | | generalized | | [address] | | | | | or | | Phone: | | | | | localized, | | [phone] | | | | | pelvic | | Fax: | | | | | region and | | [phone] | | | | | thigh Pain [...] | | | | Mailcode: [id number] | [place], [place] | internal joint | | | | [facility] | [address] | prosthesis (HCC) | | | | [place], [place] | [phone] | (Primary Dx) | | | | [address] | | | | | | [phone] | | | +--------+---------+ + + + [...] has been indic ated for [facility] in [place], but they want the ok from [facility]. [...] prn f/u here as she lives near [place]. 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
--- OUTSIDE RECORDS SUMMARY | ~2020-03-28 | XMS | Encounter Summary ---
Demographics + + + | Address | [address] | | | [place] [address] | + + + | Home Phone [...] Author + + + | Author | [facility] | + + + | Organization | [facility] | + + + | [...] Team Providers + +------+ + | Care Implant Polisher Name | Role | Phone | + +------+ + PCP | Unavailable | + +------+ + Encounter Details +--------+ + + + + | Date | Type | Department | Care Team | Description | +--------+ + + + + | 01/05/ | Office | [facility] | Note, [...] of this encounter Progress Notes Interface, Cook Ice Cream In - 04/28/2005 7:30 PM PDTClinic Date: 01/06/2004 Orthopedic History: A 43-year-old woman followed for a postoperative methicillin-sensitive Staphylococcus aureus and anaerobic right lateral hip wound infection after right hip cheilectomy followed by open reduction internal fixation and loss of reduction in the greater trochanter. She developed a fluid pocket and has a pigtail catheter in place which we have been advancing. She has been afebrile, stopped her nafcillin and was converted some dicloxacillin to Keflex and completed a course of Flagyl. Unfortunately, she missed about a week and half of Keflex due to lack of funds and delay in insurance authorization. During that period of time, she says that she has felt sick but when questioned more about her symptoms they are more of a head cold, runny nose, and sneezing, and tired sensations. She has had no change in the amount of drainage from her wound which is a clarity yellow fluid. She has approximately 25 mL which she emptied and another 35 mL in the canister over the past 2 weeks. She takes no pain medications routinely and over the last 2 weeks have taken 10 mg of oxycodone on 2 separate occasions only. Overall, her hip pain feels much improved from prior to surgery. Physical Examination: Essentially unchanged. She is afebrile with a temperature of 99.1. There is a small amount of expressible fluid around the drain. It is serous and translucent. There is no cellulitis or lymphangitis. There is firm tissue deep consistent with her heterotrophic calcification. Also, sound imaging shows that the size of the fluid collection has decreased slightly over the past 2 weeks, but the effected area which is echogenic has increased slightly to 6.4 x 3.1 x 5.4 cm. This is as yet undetermined significance. Laboratory Studies: White count has returned to normal with 9.1 with a normal differential and slightly elevated platelet count of 427. Her C-reactive protein level is pending but has been normal since mid October 2003 ranging from less than 0.3 to 0.8 most recently on December 23, 2003. Additionally, her erythrocyte sedimentation rate remains at 20 which is also normal. Assessment: No signs of active infection despite 1-1/2 week gap in the antibiotic coverage. Disposition: I have attempted to advance her drain a little further, but at this point, it is advanced to the point where there are now holes in the suture monofilament that controls the pigtail catheter is now visible. Therefore, I have removed the pigtail catheter. The tip is intact. We have packed the wound with 1/4 inch point new gauze. It takes only 4 inches of new gauze which was easily removed and have a serosanguineous cover to it. It is than repacked. I have instructed her on changing this packing once or twice a day until she cannot pack it any longer because of the wound should become less deep. This is to function as a wick to keep the wound open, so she does not develop a fluid pocket as it seals up. She will return to clinic in 2 weeks' time or sooner if she develops any signs of recurrent infection. I have advised her to continue her Keflex as prescribed until her wound is sealed. We will not need to recheck labs or ultrasound when she returns to clinic unless she has signs of recurrent infection. Lloyd Garcia M.D. Assembly Machine Operator Orthopedics and Rehabilitation / [id number] / [id number] / [id number] / [id number] cc: Ninfa Guillen M.D. [address] [place], [place] [id number] signed by Interface, Cook Ice Cream In at 04/28/2005 7:3 0 PM PDTdocumented in this encounter Plan of Treatment Not on filedocumented as of this encounter Visit Diagnoses Not on filedocumented in this encounter"
--- OUTSIDE RECORDS SUMMARY | ~2020-03-28 | XMS | Encounter Summary ---
Demographics + + + | Address | [address] | | | [place] [address] | + + + | Home Phone | | + + + | Preferred Language | Unknown | + + + | Marital Status | Single | + + + | Adventist Affiliation | PRE | + + + [...] Team Providers + +------+ + | Care Template Layout Worker Name | Role | Phone | + +------+ + PCP | Unavailable | + +------+ + Encounter Details +--------+ + + + + | Date | Type | Department | Care Team | Description | +--------+ + + + + | 09/24/ | Office | [facility] | Note, [...] as of this encounter Progress Notes Interface, Jewel Bearing Maker In - 04/28/2006 3:06 AM PDTCLINIC DATE: 09/24/2002 ORTHOPEDIC CLINIC SUBJECTIVE: A 42-year-old obese female follows for right hip endstage degenerative joint disease. She returns to clinic today stating that her hip is bothering her again. Her last injection was 6 months ago in February 2002. It lasted approximately 5 months. She [facility] with [facility]. She takes Celebrex, multivitamin, and uses a cane to ambulate. She has difficulty donning and doffing shoes and socks, and getting in and out of deep seats. PHYSICAL EXAMINATION: She ambulates with a right moderate coxalgic gait. She is morbidly obese, in good spirits. DIAGNOSTIC DATA: X-rays none today. ASSESSMENT: Endstage right hip degenerative joint disease. DISPOSITION: We have provided her with a referral for the hip arthrogram injection with Celestone Soluspan and Marcaine. She will return to clinic on an as-needed basis. I have advised her that she can get these fluoroscopically-guided hip injections closer to home in [place], [place], and come here when she fails to respond to schedule her total hip replacement at that time. She seems to prefer to drive across the [place] for her care. Lloyd Garcia M.D. Honing Machine Operator Production, Orthopedics and Rehabilitation / [id number] / [id number] / [id number] / [id number] cc: Ninfa Guillen M.D. [address] [place], [place] [id number] signed by Interface, Jewel Bearing Maker In at 04/28/2006 3:0 6 AM PDTInterface, Jewel Bearing Maker In - 04/28/2006 3:06 AM PDTCLINIC DATE: 09/24/2002 ORTHOPEDIC CLINIC HISTORY OF PRESENT ILLNESS: Ms. Galdamez is a 42-year-old female followed for right hip degenerative joint disease. She returns to clinic today reporting a 1- to 2-month history of progressively worsening right hip pain. The patient has received several therapeutic arthrograms in the past with the last one being approximately 6 months ago. She returns today to have her right hip therapeutic arthrogram scheduled. The patient was given a Physical Therapy referral during her last visit in April 2002 and reports that she attends Physical Therapy once a week. She currently uses the assistance of a cane for ambulating and occasionally has difficulty with tieing her shoes and getting out of bed. PHYSICAL EXAMINATION: Right lower extremity: Right hip range of motion 0 to approximately 80 degrees, prior to tenderness and 30 to 40 degrees of internal rotation and external rotation with tenderness. DIAGNOSTIC DATA: X-rays, no x-rays were performed. ASSESSMENT AND PLAN: A 42-year-old female with right hip degenerative joint disease. The patient was counseled that eventually she will require a total hip replacement on that side, but given her age, she is not indicated for that at this time. We will schedule her for a right hip therapeutic arthrogram, and we will see her back in clinic on a p.r.n. basis at that point. She is also encouraged to follow up with her primary care physician and have her schedule her hip arthrogram again so that she does not have to return all the way to [facility] [place] from [place], [place]. Shruti Manjarrez MD AM / [id number] / [id number] / [id number] / [id number] cc: Ninfa Guillen M.D. [address] [place], [place] [id number] signed by Interface, Jewel Bearing Maker In at 04/28/2006 3:0 6 AM PDTdocumented in this encounter Plan of Treatment Not on filedocumented as of this encounter Visit Diagnoses Not on filedocumented in this encounter"
--- OUTSIDE RECORDS SUMMARY | ~2020-03-28 | XMS | Encounter Summary ---
Demographics + + + | Address | [address] | | | [place] [address] | + + + | Home Phone [...] Team Providers + +------+ + | Care Fly Tier Name | Role | Phone | [...] | [facility] | MEGAN Reddy [address] | | | | | [address] | [address] | | | | | Loop Physician's | [place], [place] | | | | | [place], 3rd floor | [address] | | | | | [place], [place] | [phone] | | | | | [address] | | | | | | [phone] | | | +--------+ + + + [...] CELL | 7.8 | K/cu mm | [facility] | | | COUNT | | | [facility]ICAL | | | | | | [facility] - | | | | | | [place] | | + +-------+ + + + | RED CELL | 4.86 | M/cu mm | [facility] | | | COUNT | | | MEDICAL | | | | | | [facility] - | | | | | | [place] | | + +-------+ + + + | HEMOGLOBIN | 14.1 | 12.1999 - 15 | [facility] | | | | | g/dL | MEDICAL | | | | | | [facility] - | | | | | | [place] | | + +-------+ + + + | HEMATOCRIT | 41.2 | % | [facility] | | | | | | [facility] | | | | | | [facility] - | | | | | | [place] | | + +-------+ + + + | MCV | 85 | fL | [facility] | | | | | | [facility] | | | | | | [facility] - | | | | | | [place] | | + +-------+ + + + | MCH | 29 | pg | [facility] | | | | | | [facility] | | | | | | [facility] - | | | | | | [place] | | + +-------+ + + + | MCHC | 34.2 | g/dL | [facility] | | | | | | [facility] | | | | | | [facility] - | | | | | | [place] | | + +-------+ + + + | PLATELET | 367 | K/cu mm | [facility] | | | COUNT | | | MEDICAL | | | | | | [facility] - | | | | | | [place] | | + +-------+ + + + | NEUTROPHIL | 59.2 | % | [facility] | | | % | | | [facility] | | | | | | [facility] - | | | | | | [place] | | + +-------+ + + + | LYMPHOCYTE | 32.5 | % | [facility] | | | % | | | [facility] | | | | | | [facility] - | | | | | | [place] | | + +-------+ + + + | MONOCYTE % | 6.1 | % | [facility] | | | | | | [facility] | | | | | | [facility] - | | | | | | [place] | | + +-------+ + + + | EOS % | 1.5 | % | [facility] | | | | | | [facility] | | | | | | [facility] - | | | | | | [place] | | + +-------+ + + + | BASO % | 0.7 | % | [facility] | | | | | | [facility] | | | | | | [facility] - | | | | | | [place] | | + +-------+ + + + | RDW | 14.5 | % | [facility] | | | | | | [facility] | | | | | | [facility] - | | | | | | [place] | | + +-------+ + + + | MPV | | fL | [facility] | | | | | | [facility] | | | | | | [facility] - | | | | | | [place] | | + +-------+ + + + | NEUTROPHIL | 4.6 | K/cu mm | [facility] | | | # | | | [facility] | | | | | | [facility] - | | | | | | [place] | | + +-------+ + + + | LYMPHOCYTE | 2.5 | K/cu mm | [facility] | | | # | | | [facility] | | | | | | [facility] - | | | | | | [place] | | + +-------+ + + + | MONOCYTE # | 0.5 | K/cu mm | [facility] | | | | | | [facility] | | | | | | [facility] - | | | | | | [place] | | + +-------+ + + + | EOS # | 0.1 | K/cu mm | [facility] | | | | | | [facility] | | | | | | [facility] - | | | | | | [place] | | + +-------+ + + + | BASO # | 0.1 | | [facility] | | | | | | [facility] | | | | | | [facility] - | | | | | | [place] | | + +-------+ + + + | PHOSPHORUS, | 3.9 | mg/dL | [facility] | | | PLASMA | | | [...] | + + + + + | [facility] | [address] | [place] [address] | | | [facility] [place] | | | | + + + + + COMPLETE METABOLIC SET (NA,K,CL,CO2,BUN,CREAT,GLUC,CA,AST,ALT,BILI TOTAL,ALK PHOS,ALB,PROT TOTAL) (03/01/2011 9:55 AM PDT) + +-------+ + + + | Component | Value | Ref Range | Performed | Pathologist | | | | | At | Signature | + +-------+ + + + | GLUCOSE, | 106 | 65 - 110 mg/dL | [facility] | | | PLASMA | | | MEDICAL | | | (LAB) | | | [facility]ENTER - | | | | | | [place] | | + +-------+ + + + | BUN, PLASMA | 10 | mg/dL | [facility] | | | (LAB) | | | MEDICAL | | | | | | [facility] - | | | | | | [place] | | + +-------+ + + + | CREATININE | 0.7 | mg/dL | [facility] | | | PLASMA | | | MEDICAL | | | (LAB) | | | [facility]ENTER - | | | | | | [place] | | + +-------+ + + + | TOTAL | 7.4 | g/dL | [facility] | | | PROTEIN, | | | MEDICAL | | | PLASMA | | | CENTER - | | | (LAB) | | | [place] | | + +-------+ + + + | ALBUMIN, | 3.8 | g/dL | [facility] | | | PLASMA | | | MEDICAL | | | (LAB) | | | [facility]ENTER - | | | | | | [place] | | + +-------+ + + + | CALCIUM, | 9.2 | mg/dL | [facility] | | | PLASMA | | | MEDICAL | | | (LAB) | | | CENTER - | | | | | | [place] | | + +-------+ + + + | BILIRUBIN | 0.3 | Transcutaneous | [facility] | | | TOTAL | | Bilirubinometer | MEDICAL | | | | | | CENTER - | | | | | | [place] | | + +-------+ + + + | ALK PHOS | 72 | U/L | [facility] | | | | | | MEDICAL | | | | | | [facility] - | | | | | | [place] | | + +-------+ + + + | AST(SGOT) | 10 | U/L | [facility] | | | | | | MEDICAL | | | | | | [facility] - | | | | | | [place] | | + +-------+ + + + | SODIUM, | 141 | mmol/L | [facility] | | | PLASMA | | | MEDICAL | | | (LAB) | | | CENTER - | | | | | | [place] | | + +-------+ + + + | POTASSIUM, | 4.4 | mmol/L | [facility] | | | PLASMA | | | MEDICAL | | | (LAB) | | | CENTER - | | | | | | [place] | | + +-------+ + + + | CHLORIDE, | 107 | mmol/L | [facility] | | | PLASMA | | | MEDICAL | | | (LAB) | | | CENTER - | | | | | | [place] | | + +-------+ + + + | TOTAL CO2, | 30 | mmol/L | [facility] | | | PLASMA | | | MEDICAL | | | (LAB) | | | CENTER - | | | | | | [place] | | + +-------+ + + + | ALT (SGPT) | 14 | U/L | [facility] | | | | | | MEDICAL | | | | | | [facility]ENTER - | | | | | | [place] | | + +-------+ + + + | SEDIMENTATI | 29 | mm/hr | [facility] | | | ON RATE | | [...] | + + + + + | [facility] | [address] | [place] [address] | | | [facility] [place] | | | | + + + + + documented in this encounter Visit Diagnoses Not on filedocumented in this encounter"
--- OUTSIDE RECORDS SUMMARY | ~2020-03-28 | XMS | Encounter Summary ---
Demographics + + + | Address | [address] | | | [place] [address] | + + + | Home Phone [...] Team Providers + +------+ + | Care Lunchroom Operator Name | Role | Phone | [...] | | Surgery / | | Quintin Mlils | [facility] [address] | | | [...] | | | | | or | [address] | Pavilion | | | | | localized, | | [place], [place] | | | | | pelvic | | [address] | | | | | region and | | Phone: | | | | | thigh | | [phone] | | | | | Intervertebr | | Fax: | | | | | al lumbar | | [phone] | | | | | disc | [...] | [facility] [address] | [address] [facility] | Hip (Primary Dx) | | | | [address] | [address] [place], | | | | | Mailcode: [id number] | [place] [address] | | | | | [facility] | | | | | | [place], [place] | | | | | | [address] | | | | | | [phone] | | | +--------+---------+ + + + [...]
--- OUTSIDE RECORDS SUMMARY | ~2020-03-28 | XMS | Encounter Summary ---
Demographics + + + | Address | [address] | | | [place] [address] | + + + | Home Phone | | + + + | Preferred Language | Unknown | + + + | Marital Status | Single | + + + | Zoroastrian Affiliation | PRE | + + + | Race | White | + + + | Ethnic Group | Not or | + + + Author + + + | Author | [facility] | + + + | Organization | [facility] | + + + | Address [...] Team Providers + +------+ + | Care Geosciences Associate Professor Name | Role | Phone | [...] | | | | Mailcode: [id number] | [place], [place] | | | | | [facility] | [address] | | | | | [place], [place] | [phone] | | | | | [address] | | | | | | [phone] | | | +--------+ + + + [...]
--- OUTSIDE RECORDS SUMMARY | ~2020-03-28 | XMS | Encounter Summary ---
Demographics + + + | Address | [address] | | | [place] [address] | + + + | Home Phone | | + + + | Preferred Language | Unknown | + + + | Marital Status | Single | + + + | Yazdanism Affiliation | PRE | + + + [...] Team Providers + +------+ + | Care Sales Training Coordinator Name | Role | Phone | [...] | | | | | (sacroiliac) | [facility], | | | | | joint | Rd | 10th Floor | | | | | inflammation | [place], [place] | [place], [place] | | | | | ([facility] | [address] | [address] | | | | | Procedures | | Phone: | | | | | CT INJ | | [phone] | | | | | SACROILIAC | | Fax: | | | | | JOINT | | [phone] | | | | | W/NEEDLE | [...] | | | | | | Rd [place], | | | | | | | [place] | | | | | | | [address] | | | | | | | Phone: | | | | | | | [phone] | | | | | | | Fax: | | | | | | | [phone] | +--------+--------+ + + + + Encounter [...] | | | | Mailcode: [id number] | [place], [place] | ([facility]) | | | | [facility] | [address] | | | | | [place], [place] | [phone] | | | | | [address] | | | | | | [phone] | | | +--------+---------+ + + + [...] and plan of care. TYRONE COLBY MD [facility] [address] [facility] Mailcode: [id number] [facility] [phone] esfaye Saenz PA-C - 02/20/2010 3:15 PM [...] None. | | | | | | Biomedical Equipment Tech: Dr. Moss, | | | | | | certified residential medication aide. | | | | | | Bus Boy: | | | | | | Sue [...] the | | | | | | home support worker. Modeler | | | | | | imaging [...]
--- OUTSIDE RECORDS SUMMARY | ~2020-03-28 | XMS | Encounter Summary ---
Demographics + + + | Address | [address] | | | [place] [address] | + + + | Home Phone [...] Team Providers + +------+ + | Care Med Admin Name | Role | Phone | + +------+ + | Travis Mcginnis MD | PCP | | + +------+ + Reason for Visit + + + | Reason | Comments | + + + | Medication requested | | + + + Encounter Details +--------+ + + + + | Date | Type | Department | Care Team | Description | +--------+ + + + + | 03/15/ | Telephone | Orthopaedics at | Kalyan Arias MD | Medication requested | | 2009 | | [facility] [address] | [address] | | | | | [address] | [facility] | | | | | Mailcode: [id number] | [place], [place] | | | | | [facility] | [address] | | | | | [place], [place] | [phone] | | | | | [address] | | | | | | [phone] | | | +--------+ + + + [...]
--- OUTSIDE RECORDS SUMMARY | ~2020-03-28 | XMS | Encounter Summary ---
Demographics + + + | Address | [address] | | | [place] [address] | + + + | Home Phone [...] Team Providers + +------+ + | Care Airport Tower Controller Name | Role | Phone | + +------+ + PCP | Unavailable | + +------+ + Encounter Details +--------+ + + + + | Date | Type | Department | Care Team | Description | +--------+ + + + + | 09/09/ | Results | Orthopaedics at | Lloyd Garcia MD | | | 2002 | Only | [facility] [address] | | | | | | [address] | | | | | | Mailcode: [id number] | | | | | | [facility] | | | | | | [place], [place] | | | | | | [address] | | | | | | [phone] | | | +--------+ + + + [...] | + +--------+ + + + | HEMATOCRIT | Routin | 09/16/2003 | | Results for this | | | e | 7:29 AM | | procedure are in the | | | | PST | | results section. | + +--------+ + + + | CBC ONLY | Routin | 09/13/2003 | | Results for this | | | e | 11:45 PM | | procedure are in the | | | | PST | | results section. | + +--------+ + + + | HEMATOCRIT | Routin | 09/10/2003 | | Results for this | | | e | 11:30 AM | | procedure are in the | | | | PST | | results section. | + +--------+ + + + | TYPE AND SCREEN | Routin | 09/10/2003 | | Results for this | | | e | 11:30 AM | | procedure are in the | | | | PST | | results section. | + +--------+ + + + | X-RAY HIP 2 VIEWS | Routin | 09/09/2003 | | Results for this | | RIGHT | e | 2:55 PM | | procedure are in the | | | | PST | | results section. | + +--------+ + + + documented in this encounter Results HEMATOCRIT (09/16/2003 7:29 AM PST) + + + + + + | Component | Value | Ref Range | Performed | Pathologist | | | | | At | Signature | + + + + + + | HEMATOCRIT | 30.3 (L) | 33.0 - 44.6 % | [...] [facility] | [address] | [place] [address] | | | PATHOLOGY | [address] | | | + + + + + | [facility] | [address] | [place] [address] | | | PATHOLOGY | [address] | | | + + + + + CBC ONLY WITH PLATELET (09/13/2003 11:45 PM PST) + + + + + + | Component | Value | Ref Range | Performed | Pathologist | | | | | At | Signature | + + + + + + | WHITE CELL | 11.5 (H) | 4.4 - 11.0 K/cu | [facility] | | | COUNT | | mm | DEPARTMENT | | | | | | OF | | | | | | PATHOLOGY | | + + + + + + | RED CELL | 3.67 | 3.65 - 5.10 | [facility] | | | COUNT | | M/cu mm | DEPARTMENT | | | | | | OF | | | | | | PATHOLOGY | | + + + + + + | HEMOGLOBIN | 10.6 (L) | 11.4 - 15.0 | [facility] | | | | | g/dL | DEPARTMENT | | | | | | OF | | | | | | PATHOLOGY | | + + + + + + | HEMATOCRIT | 31.3 (L) | 33.0 - 44.6 % | [facility] | | | | | | DEPARTMENT | | | | | | OF | | | | | | PATHOLOGY | | + + + + + + | MCV | 85.5 | 80.0 - 96.0 fL | [facility] | | | | | | DEPARTMENT | | | | | | OF | | | | | | PATHOLOGY | | + + + + + + | MCH | 28.9 (L) | 29.0 - 32.0 pg | [...] + + + + | RDW | 13.9 | 11.5 - 15.0 % | [facility] | | | | | | DEPARTMENT | | | | | | OF | | | | | | PATHOLOGY | | + + + + + + | PLATELET | 369 | 150 - 400 K/cu | [facility] | | | COUNT | | mm | DEPARTMENT | | | | | | OF | | | | | | PATHOLOGY | | + + + + + + | MPV | 6.5 (L) | 7.4 - 10.4 fL | [...] | + + + + + | [facility] DEPARTMENT OF | [address] | [place] [address] | | | PATHOLOGY | [address] | | | + + + + + | [facility] DEPARTMENT | [address] | [place] [address] | | | PATHOLOGY | [address] | | | + + + + + HEMATOCRIT (09/10/2003 11:30 AM PST) + +-------+ + + + | Component | Value | Ref Range | Performed | Pathologist | | | | | At | Signature | + +-------+ + + + | HEMATOCRIT | 36.7 | 33.0 - 44.6 % | [facility] [...] | + + + + + | [facility] | [address] | [place] [address] | | | PATHOLOGY | [address] | | | + + + + + | [facility] | [facility] [address] | [place] [address] | | | PATHOLOGY | [address] | | | + + + + + TYPE AND SCREEN (09/10/2003 11:30 AM PST) + +-------+ + + + | Component | Value | Ref Range | Performed | Pathologist | | | | | At | Signature | + +-------+ + + + | ABO GROUP | A | | [facility] | | | | | | DEPARTMENT | | | | | | OF | | | | | | PATHOLOGY | | + +-------+ + + + | RH TYPE | POS | | [facility] | | | | | | DEPARTMENT | | | | | | OF | | | | | | PATHOLOGY | | + +-------+ + + + | ANTIBODY | NEG | | [facility] | | | SCREEN | | | DEPARTMENT | | | | | | OF | | | | | | PATHOLOGY | | + +-------+ + + + + + | Specimen | + + | | + + + + + | Narrative | Performed At | + + + | SPEC. RC 09/14/03 @ 0700 | [facility] | | | DEPARTMENT OF | | | PATHOLOGY | + + + + + + + + | Performing | Address | City/State/Zipcode | Phone Number | | Organization | | | | + + + + + | [facility] DEPARTMENT OF | [address] | [place] [address] | | | PATHOLOGY | [address] | | | + + + + + | [facility] OF | [address] | [place] [address] | | | PATHOLOGY | [address] | | | + + + + + HIP 2 VIEWS RIGHT (09/09/2003 2:55 PM PST) + + + + + + | Component | Value | Ref Range | Performed | Pathologist | | | | | At | Signature | + + + + + + | HIP 2 VIEWS | Radiologist 1: TRIPP, | | | | | RIGHT | Raegan HERRERA M.D.RIGHT | | | | | | HIP AP AND LATERAL | | | | | | SEPTEMBER 09, 2003 | | | | | | COMPARISON: AUGUST 16, | | | | | | 2002 FINDINGS: There | | | | | | are postoperative | | | | | | findings from resection | | | | | | offemoral osteophytes | | | | | | and greater trochanteric | | | | | | osteotomy. Softtissue | | | | | | drains have been | | | | | | removed. There has | | | | | | been loss of | | | | | | fixationwith avulsion of | | | | | | the greater trochanter | | | | | | which is | | | | | | retractedproximally by | | | | | | 2.70 cm. There is | | | | | | lucency around the lagg | | | | | | screwsconsistent with | | | | | | hardware loosening. | | | | | | The postoperative | | | | | | right hipjoint appears | | | | | | unchanged. Impression: | | | | | | Loss of fixation with | | | | | | distraction of the right | | | | | | greatertrochanteric | | | | | | osteotomy segment . | | | | + + + + + + + + | Specimen | + + | | + + + +---------+ + + | Performing | Address | City/State/Zipcode | Phone Number | | Organization | | | | + +---------+ + + | [facility] DEPARTMENT OF | | | | | RADIOLOGY | | | | + +---------+ + + documented in this encounter Visit Diagnoses Not on filedocumented in this encounter"
--- OUTSIDE RECORDS SUMMARY | ~2020-03-28 | XMS | Encounter Summary ---
Demographics + + + | Address | [address] | | | [place] [address] | + + + | Home Phone | | + + + | Preferred Language | Unknown | + + + | Marital Status | Single | + + + | Druze Affiliation | PRE | + + + | Race | White | + + + | Ethnic Group | Not or | + + + Author + + + | Author | [facility] | + + + | Organization | [facility] | + + + | [...] Team Providers + +------+ + | Care Welfare Centre Manager Name | Role | Phone | + +------+ + PCP | Unavailable | + +------+ + Encounter Details +--------+ + + + + | Date | Type | Department | Care Team | Description | +--------+ + + + + | 10/22/ | Office | [facility] | Note, [...] as of this encounter Progress Notes Interface, Analytical Engineer In - 04/01/2006 3:12 AM PDTCLINIC DATE: 10/22/2002 ORTHOPEDIC CLINIC HISTORY: This is a 42-year-old obese female followed for right hip end-stage degenerative joint disease. She returns to clinic today having had her fourth fluoroscopically guided steroid injection on October 05, 2002. She reported that the injection helped significantly for one day that it continues to feel okay, but that she has had some catching and locking symptoms which feels like something is getting hooked inside of her hip. She has them approximately x 4 a day when she has them approximately 3 days per week and has had none for the last 3 days. She continues to obtain relief with physical therapy and an exercise program as well as Celebrex. Additional medications include ranitidine. PHYSICAL EXAMINATION GENERAL: She ambulates with a moderate right toxalgic gait. She remains morbidly obese. She is in good spirits. VITAL SIGNS: She is 5 feet 4 inches and weighs 240 pounds. HIPS: Hip range of motion is 0 to 120 degrees bilaterally flexion. She has 60 degrees of external rotation and 30 degrees of internal rotation on the left, but only approximately 30 degrees of external rotation and 15 degrees of internal rotation on the right, limited by pain in the extremes. Abduction and adduction are similarly limited. DIAGNOSTIC DATA: X-rays, review of her electrogram from October 05, 2002, shows no significant increase in the size of the osteophytes along the collar of the bone spurs rimming her femoral head which are greater than those on the acetabular side. She does appear to have some cartilage space preserved in the hip joint, but there is no significant dye on the images that were saved in PAX to help assess this at this point. ASSESSMENT: Severe right hip degenerative joint disease. DISPOSITION: I have provided her with a prescription for physical therapy, ought to be seen x 3 a week on an ongoing basis for approximately 12 weeks including exercise pool, exercise program, and gait training. She will return to clinic in 3 months' time. She will not require exercise when she returns to clinic if progressively disabled by the mechanical locking symptoms in her hip. I believe it would be reasonable at her age and with her weight to consider cheilectomy (removal of osteophytes) even with the attendant risks of incomplete symptomatic relief and possibly vascular necrosis prior to performing a total hip replacement. Lloyd Garcia M.D. Water Truck Driver, Orthopedics and Rehabilitation / [id number] / [id number] / [id number] / cc: Ninfa Guillen M.D. [address] [id number] signed by Interface, Analytical Engineer In at 04/01/2006 3:1 2 AM PDTdocumented in this encounter Plan of Treatment Not on filedocumented as of this encounter Visit Diagnoses Not on filedocumented in this encounter"
--- OUTSIDE RECORDS SUMMARY | ~2020-03-28 | XMS | Encounter Summary ---
Demographics + + + | Address | [address] | | | [place] [address] | + + + | Home Phone | | + + + | Preferred Language | Unknown | + + + | Marital Status | | + + + | Advent Affiliation | [id number] | + + + | Race | Unknown | + + + | Ethnic Group | Unknown | + + + Author + + + | Author | [facility] | | | and [place] | + + + | Organization | [facility] | | | and [...] Team Providers + +------+ + | Care Art Editor Name | Role | Phone | + [...] Description | +--------+--------+ + + + | 09/24/ | Refill | [facility] | Xiang Sepulveda, | Medication Refill | | 2019 | | [facility] | DO [address] | | | | | [address] | [place], [place] | | | | | [address] | [address] | | | | | [place], [place] | | | | | | [address] | | | | | | [phone] | | | +--------+--------+ + + + [...] this encounter Miscellaneous Notes Telephone Encounter - Antonella Sprague Plant Propagator - 09/24/2019 10:23 AM PSTKevyn e given to Dr. Sepulveda. Electronically signed by Antonella Sprague Plant Propagator at 10:23 AM PSTdocumented in this encounter Plan of Treatment +--------+---------+ + + + | Date | Type | Specialty | Care Team | Description | +--------+---------+ + + + | 05/23/ | Office | Pain Medicine | Xiang Sepulveda, | | | 2019 | Visit | | DO [address] | | | | | | [place] | | | | | | [address] | | | | | | | | +--------+---------+ + + + documented as of this encounter Visit Diagnoses + + | Diagnosis | + + | Chronic pain syndrome | + + | Radiculopathy of lumbar region Thoracic or lumbosacral neuritis or radiculitis, | | unspecified | + + | DDD (degenerative disc disease), lumbar Degeneration of lumbar or lumbosacral | | intervertebral disc | + + | Facet arthropathy, lumbar Lumbosacral spondylosis without myelopathy | + + documented in this encounter"
--- OUTSIDE RECORDS SUMMARY | ~2020-03-28 | XMS | Encounter Summary ---
Demographics + + + | Address | [address] | | | [place] [address] | + + + | Home Phone [...] Author + + + | Author | [facility] | + + + | Organization | [facility] | + + + | [...] Team Providers + +------+ + | Care Cargo Broker Name | Role | Phone | + +------+ + | Travis Mcginnis MD | PCP | | + +------+ + Reason for Visit +---------+ + | Reason | Comments | +---------+ + | Post Op | | +---------+ + Office Visit - E/M Services (Routine) +--------+--------+ + + + + | Status | Reason | Specialty | Diagnoses / | Referred By | Referred To | | | | | Procedures | Contact | Contact | +--------+--------+ + + + + | Closed | | Orthopedic | | Non-[facility] | [facility], | | | | Surgery / | | Epic Dept | Kalyan Barrientos MD | | | | Orthopedics | | | [address] | | | | | | | [address] | | | | | | | [place], | | | | | | | [place] | | | | | | | [address] | | | | | | | Phone: | | | | | | | [phone] | | | | | | | Fax: | | | | | | | [phone] | +--------+--------+ + + + + Encounter Details +--------+---------+ + + + | Date | Type | Department | Care Team | Description | +--------+---------+ + + + | 11/23/ | Office | Orthopaedics at | Tesfaye Saenz | Hip pain, right | | 2010 | Visit | [facility] [address] | [address] | (Primary Dx); | | | | [address] | | Osteoarthritis of | | | | Mailcode: [id number] | | hip; JUAN DAVID (total hip | | | | [facility] | | arthroplasty) | | | | [place], [place] | | | | | | [address] | | | | | | [phone] | | | +--------+---------+ + + + [...] Weight | 118.8 kg (262 lb) | 11/23/2010 2:59 PM | | | | | PST | | + + + + + | Height | 162.6 cm (5' 4") | 11/23/2010 2:59 PM | | | | | PST | | + + + + + | Body Mass Index | 44.97 | 11/23/2010 2:59 PM | | | | | PST | | + + + + + documented in this encounter Progress Notes Tesfaye Saenz PA-C - 11/28/2010 1:57 PM PSTFormatting of this note might be differ ent from the original. SUBJECTIVE Shelby Galdamez was seen today about 5 weeks postop. She complains of moderate hip pain that is still well controlled at this point with Tate. She has been wbat and is overall doing well. She has not yet been doing physical therapy b ut is requesting today to start water thearapy. No fever, chills, wound issues. She has been on IV anbx per ID and is tolerating them without issues. She is also seeing Dr Teresa today for anbx guidance. OBJECTIVE: - Vitals: Ht 162.6 cm (5' 4")( < 3 %ile), Wt 118.842 kg (262 lbs)( < 3 %ile), BMI 44.97 kg/ (m^2). - Incision is healing well without signs of infection. Incision is clean and dry. No eryt joseph or drainage. - There is a less swelling locally at the hip and mild swelling distally in the right LE. No localized tenderness in the lower leg. - Trendelenburg gait - 5/5 strength throughout right LE - Sensation intact throughout right LE X-RAYS X-rays performed today show acceptable alignment and no change in position of the prosthesi s. Prosthesis appears well fixed with no evidence of loosening. ASSESSMENT: -Ms. Shelby Galdamez is a 50 year old female about 3 weeks s/p I&D JUAN DAVID with hardware removal , Progressing well PLAN: - Pt is to increase activity as tolerated with continued posterior hip precautions - Patient will begin PT for water therapy. - PO anbx per Dr Teresa. - Follow up in 6 months with us and ID. Sooner if any issues. - X-rays will be required at next visit (AP Pelvis (hip centered), AP/LAT hip) - Patient advised to call if increased wound erythema, drainage or any other concerns arise . Orders Placed This Encounter X-ray hip 2 views right w/ pelvis 1 view Consult to rehabilitation physical therapy outside [facility] documented in this encounter Plan of Treatment Not on filedocumented as of this encounter Results X-RAY HIP 2 VIEWS RIGHT W/ PELVIS 1 VIEW (11/23/2010 2:55 PM PST) + + + + [...] | | | | RIGHT W/ | 11/23/10 14:55:00 | | | | | PELVIS 1 | COMPARISON: 10/17/10 | | | | | VIEW | FINDINGS: There is a | | | | | | noncemented right total | | | | | | hip arthroplasty. The | | | | | | prostheticfemoral head | | | | | | is symmetrically seated | | | | | | within the acetabular | | | | | | cup. Thefemoral stem | | | | | | component is well seated | | | | | | within the medullary | | | | | | cavity ofthe right | | | | | | femur. There is no | | | | | | evidence of hardware | | | | | | loosening orfailure. | | | | | | Superior displacement | | | | | | of the greater | | | | | | trochanteric fragmentis | | | | | | unchanged. The left | | | | | | hip joint space is | | | | | | maintained and the | | | | | | femoralhead contour is | | | | | | smooth. The SI joints | | | | | | are unremarkable. | | | | | | there is nosoft tissue | | | | | | abnormality. | | | | | | IMPRESSION: Stable | | | | | | noncemented right total | | | | | | hip arthroplasty in | | | | | | normal alignmentwithout | | | | | | evidence of hardware | | | | | | competition. I have | | | | | | personally viewed this | | | | | | procedure/exam and | | | | | | reviewed this report. | | | | | | Author: ABELARDO | | | | | | Trinh SANDOVAL: | | | | | | MOSHE FLOWERS M.D. | | | | | | STATUS FINAL / Dr. | | | | | | MOSHE FLOWERS | | | | + + + + + + + + | Specimen | + + | | + + + +---------+ + + | Performing | Address | City/State/Zipcode | Phone Number | | Organization | | | | + +---------+ + + | [facility] OF | | | | | RADIOLOGY | | | | + +---------+ + + documented in this encounter Visit Diagnoses + + | Diagnosis | + + | Hip pain, right - Primary Pain in joint, pelvic region and thigh | + + | Osteoarthritis of hip Osteoarthrosis, unspecified whether generalized or localized, | | pelvic region and thigh | + + | JUAN DAVID (total hip arthroplasty) Hip joint replacement by other means | + + documented in this encounter
--- OUTSIDE RECORDS SUMMARY | ~2020-03-28 | XMS | Encounter Summary ---
Demographics + + + | Address | [address] | | | [place] [address] | + + + | Home Phone [...] Team Providers + +------+ + | Care Traffic Analyst Name | Role | Phone | + +------+ + | Kalyan Sanders | PCP | Unavailable | + +------+ + Reason for Visit + + + | Reason | Comments | + + + | Lab findings, | injection | | teaching, guidance, | | | and counseling | | + + + Encounter Details +--------+ + + + + | Date | Type | Department | Care Team | Description | +--------+ + + + + | 01/23/ | Telephone | Orthopaedics at | Kalyan Arias MD | Lab findings, | | 2009 | | [facility] [address] | [address] | teaching, guidance, | | | | [address] | [address] | and counseling | | | | Mailcode: [id number] | [facility] [place] | (injection) | | | | [facility] | [address] | | | | | [facility] [place] | [phone] | | | | | [address] | | | | | | [phone] | | | +--------+ + + + [...]
--- OUTSIDE RECORDS SUMMARY | ~2020-03-28 | XMS | Encounter Summary ---
Demographics + + + | Address | [address] | | | [place] [address] | + + + | Home Phone [...] Author + + + | Author | [facility] | + + + | Organization | [facility] | + + + | Address | Unknown | + + + | Phone | Unavailable | + + + Support + + + + + | Name | Relationship | Address | Phone | + + + + + | Casandra Smith | ROBERTO | [place] | | + + + + + Care Team Providers + +------+ + | Care Scalehouse Attendant Name | Role | Phone | + +------+ + PCP | Unavailable | + +------+ + Encounter Details +--------+ + + + + | Date | Type | Department | Care Team | Description | +--------+ + + + + | 02/03/ | Office | [facility] | Note, [...] as of this encounter Progress Notes Interface, Conche Operator In - 06/03/2006 3:06 AM PDTCLINIC DATE: 02/03/2002 ORTHOPEDIC CLINIC HISTORY: A 41-year-old female followed for right hip degenerative joint disease. She also has right knee pain and right low back pain. She has been seen by Dr. Vince Krishna for her low back pain, and he felt that this was due to mild disk degeneration with facet hypertrophy and prescribed physical therapy once a week for 4 weeks and an independent exercise program in the gym. She has been seen by Dr.Thomas Wu for a second opinion regarding right total hip arthroplasty versus osteotomy. He agreed that a total hip arthroplasty was the best option, and her symptoms could no longer be controlled with less invasive means. She returns to clinic today stating that her pain is improved on Arthrotec 50 mg dose that has been started by her new primary care physician in [place], and she is requesting a repeat hip injection for pain control. Her last injection was in April 2001, performed by Dr. Queen with excellent pain relief. PHYSICAL EXAMINATION: GENERAL: She is in good spirits, mildly obese, ambulates with a cane in her left hand at all times. EXTREMITIES: Right hip range of motion remains 0 to 120 degrees, 20 degrees of internal rotation, 30 degrees of external rotation, 30 degrees of abduction, and pain at the extremes of rotation and abduction. Left hip range of motion is 0 to 130 degrees with 50 degrees of external rotation, 30 degrees of internal rotation, and 50 degrees of abduction. DIAGNOSTIC DATA: X-rays: None today. ASSESSMENT: End-stage right hip degenerative joint disease. DISPOSITION: I have referred her to Dr. Queen for right hip injection under fluoroscopy with Celestone Soluspan and Marcaine. She will return to clinic here in 6 months' time. If she needs to be seen sooner, we will consider the advisability of total hip arthroplasty over serial hip injections. I am hopeful that we can delay her total hip arthroplasty as long as possible, but if she requires injections more often than every 3 to 6 months, I believe that this would be inadvisable. Lloyd Garcia M.D. Repairing Calibrator, Orthopedics and Rehabilitation / HS [id number] / [id number] / [id number] / [id number] cc: Ninfa Guillen M.D. [address] [facility] [place], [place] [id number] signed by Interface, Conche Operator In at 06/03/2006 3:06 AM PDTInterface, Conche Operator In - 06/03/2006 3:06 AM PDTCLINIC DATE: 02/03/2002 ORTHOPEDIC CLINIC SUBJECTIVE: Ms. Galdamez is doing quite well. She had an intraarticular hip injection on her right side last summer, April 2001. She still complains of right hip pain as it is quite debilitating. She has seen as well as Dr. Garcia multiple times regarding her hip pain and the degenerative arthritis that she experiences. She is a candidate for a total hip replacement, but at the current time we are trying to hold off because of her young age; she is only 41 years of age at this point. PHYSICAL EXAMINATION: She does not have pain with hip flexion and extension. Her flexion is to 90 degrees, extension is terminal. She has pain with internal rotation of her leg, and she internally rotates to 20 degrees. External rotation is to 50 degrees and is not painful. Abduction is to 25 degrees and is somewhat painful. She has weak abductors of her right hip. She has no tenderness over her trochanteric bursa. ASSESSMENT: This is a 41-year-old female with a history of right hip osteoarthritis. She is stable at this point. We will go ahead and send her back to [facility]culoskeletal [facility] for a right intraarticular hip injection as this is what she wants. We will currently hold off on hip replacement due to her young age, and she can follow up back in the clinic in 6months' time. Tr Mcghee M.D. Lloyd Garcia M.D. / [id number] / [id number] / [id number] / Tdocumented in this encounter Plan of Treatment Not on filedocumented as of this encounter Visit Diagnoses Not on filedocumented in this encounter"
--- OUTSIDE RECORDS SUMMARY | ~2020-03-28 | XMS | Encounter Summary ---
Demographics + + + | Address | [address] | | | [place] [address] | + + + | Home Phone [...] + +------+ + | Care Director Of Scout Work Name | Role | Phone | + [...] | | | | Mailcode: [id number] | [facility] [place] | | | | | [facility] | [address] | | | | | [place], [place] | [phone] | | | | | [address] | | | | | | [phone] | | | +--------+ + + + [...]
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
--- OUTSIDE RECORDS SUMMARY | ~2020-03-28 | XMS | Encounter Summary ---
Demographics + + + | Address | [address] | | | [place] [address] | + + + | Home Phone [...] Team Providers + +------+ + | Care Combine Operator Name | Role | Phone | + +------+ + PCP | Unavailable | + +------+ + Encounter Details +--------+ + + + + | Date | Type | Department | Care Team | Description | +--------+ + + + + | 06/24/ | Results | | Other, Faculty | | | 2000 | Only | | [phone] | | +--------+ + + + + [...] | | + +---------+ + + | [facility] DEPARTMENT | | | | | RADIOLOGY | | | | + +---------+ + + documented in this encounter Visit Diagnoses Not on filedocumented in this encounter"
--- OUTSIDE RECORDS SUMMARY | ~2020-03-28 | XMS | Encounter Summary ---
Demographics + + + | Address | [address] | | | [place] [address] | + + + | Home Phone [...] Author + + + | Author | [facility] | + + + | Organization | [facility] | + + + | Address [...] Team Providers + +------+ + | Care Title I Director Name | Role | Phone | + +------+ + PCP | Unavailable | + +------+ + Encounter Details +--------+ + + + + | Date | Type | Department | Care Team | Description | +--------+ + + + + | 09/25/ | ED Progress | [facility] | Report, Emergency | ED Progress Note | | 2003 | | MEDICINE | Services | | | | Note-Transc | | | | | | ribed | | | | +--------+ + + [...]
--- OUTSIDE RECORDS SUMMARY | ~2020-03-28 | XMS | Encounter Summary ---
Demographics + + + | Address | [address] | | | [place] [address] | + + + | Home Phone [...] Team Providers + +------+ + | Care Heating And Blending Supervisor Name | Role | Phone | [...] W | | | | ON | [facility] 4th Floor [address] | | | | | [address] | | | | | Mailcode: [id number] | [id number] | | | | | [facility] | | | | | | and Healing, | | | | | | Building [address],4th Floor | | | | | | | | | | | | [address] | | | | | | [phone] | | | +--------+ + + + [...]
--- OUTSIDE RECORDS SUMMARY | ~2020-03-28 | XMS | Encounter Summary ---
Demographics + + + | Address | [address] | | | [place] [address] | + + + | Home Phone [...] Team Providers + +------+ + | Care Veneer Clipper Name | Role | Phone | + [...] Pavilion | | | | | | [place], [place] | | | | | | [address] | | | | | | [phone] | | | +--------+ + + + [...] | + + + + + | [facility] | [address] | [place] [address] | | | LABORATORY | | | [...] + + + + + | [facility] DEPARTMENT | [address] | [place] [address] | | | PATHOLOGY | [address] | | | + + + + + | [facility] DEPARTMENT | [address] [place] [address] | [place] [address] | | | PATHOLOGY | [address] [...] | + + + + + | [facility] DEPARTMENT OF | [address] | [place] [address] | | | PATHOLOGY | [address] | | | + + + + + | [facility] DEPARTMENT OF | [address] | [place] [address] | | | PATHOLOGY | [address] [...] | + + + + + | [facility] | [address] | [place] [address] | | | PATHOLOGY | [address] | | | + + + + + | [facility] | [address] | [place] [address] | | | PATHOLOGY | [address] [...]
--- OUTSIDE RECORDS SUMMARY | ~2020-03-28 | XMS | Encounter Summary ---
Demographics + + + | Address | [address] | | | [place] [address] | + + + | Home Phone [...] Team Providers + +------+ + | Care Dental Therapist Name | Role | Phone | + +------+ + PCP | Unavailable | + +------+ + Encounter Details +--------+ + + + + | Date | Type | Department | Care Team | Description | +--------+ + + + + | 10/08/ | Results | Plastic and | [facility] | | | 2003 | Only | Reconstructive | [address] | | | | | Surgery -Hand | [facility] | | | | | Surgery [address] | [place] [address] | | | | | [address] | | | | | | Mailcode: [id number] | | | | | | [facility] | | | | | | [place], [place] | | | | | | [address] | | | | | | [phone] | | | +--------+ + + + [...] | + +--------+ + + + | BLOOD BANK PRODUCT | Routin | 10/08/2003 | | Results for this | | | e | 12:40 AM | | procedure are in the | | | | PST | | results section. | + +--------+ + + + | BLOOD BANK PRODUCT | Routin | 10/08/2003 | | Results for this | | | e | 12:40 AM | | procedure are in the | | | | PST | | results section. | + +--------+ + + + | TYPE AND SCREEN | Routin | 10/08/2003 | | Results for this | | | e | 12:40 AM | | procedure are in the | | | | PST | | results section. | + +--------+ + + + documented in this encounter Results BLOOD BANK PRODUCT (10/08/2003 12:40 AM PST) + + + + + + | Component | Value | Ref Range | Performed | Pathologist | | | | | At | Signature | + + + + + + | PRODUCT | RED CELL LEUKOREDUCED | | [facility] | | | DESCRIPTION | | | DEPARTMENT | | | | | | OF | | | | | | PATHOLOGY | | + + + + + + | PRODUCT | [id number] | | [facility] | | | UNIT [...] + + + | STATUS OF | Released | | [facility] | | | UNIT [...] | + + + + + | [facility] DEPARTMENT OF | [address] | [place] [address] | | | PATHOLOGY | [address] | | | + + + + + | [facility] DEPARTMENT OF | [address] | [place] [address] | | | PATHOLOGY | [address] | | | + + + + + BLOOD BANK PRODUCT (10/08/2003 12:40 AM PST) + + + + + + | Component | Value | Ref Range | Performed | Pathologist | | | | | At | Signature | + + + + + + | PRODUCT | RED CELL LEUKOREDUCED | | [facility] | | | DESCRIPTION | | | DEPARTMENT | | | | | | OF | | | | | | PATHOLOGY | | + + + + + + | PRODUCT | [id number] | | [facility] | | | UNIT [...] + + + | STATUS OF | Released | | [facility] | | | UNIT [...] | + + + + + | [facility] DEPARTMENT OF | [address] | [place] [address] | | | PATHOLOGY | [address] | | | + + + + + | [facility] OF | [address] | [place] [address] | | | PATHOLOGY | [address] | | | + + + + + TYPE AND SCREEN (10/08/2003 12:40 AM PST) + +-------+ + + + [...] At | + + + | SPEC. OUTDATES 10/11/03 @ 0700 | [facility] | | | DEPARTMENT OF | | | PATHOLOGY | + + + + + + + + | Performing | Address | City/State/Zipcode | Phone Number | | Organization | | | | + + + + + | [facility] | [address] | [place] [address] | | | PATHOLOGY | [address] | | | + + + + + | [facility] | [address] | [place] [address] | | | PATHOLOGY | [address] | | | + + + + + documented in this encounter Visit Diagnoses Not on filedocumented in this encounter"
--- OUTSIDE RECORDS SUMMARY | ~2020-03-28 | XMS | Encounter Summary ---
Demographics + + + | Address | [address] | | | [place] [address] | + + + | Home Phone [...] Team Providers + +------+ + | Care Hand Tapper Name | Role | Phone | + +------+ + PCP | Unavailable | + +------+ + Encounter Details +--------+ + + + + | Date | Type | Department | Care Team | Description | +--------+ + + + + | 11/03/ | Results | Plastic and | Marguerite Araujo, | | | 2003 | Only | Reconstructive | [address] | | | | | Surgery [address] | [place], [place] | | | | | [address] | [address] | | | | | Mailcode: [id number] | [phone] | | | | | [facility] | | | | | | [place], [place] | | | | | | [address] | | | | | | [phone] | | | +--------+ + + + [...] | US LOWER EXT | Routin | 11/03/2003 | | Results for this | | NON-VASCULAR RT | e | 3:56 PM | | procedure are in the | | | | PST | | results section. | + +--------+ + + + | X-RAY HIP 2 VIEWS | Routin | 11/03/2003 | | Results for this | | RIGHT | e | 1:28 PM | | procedure are in the | | | | PST | | results section. | + +--------+ + + + | DIFFERENTIAL | Routin | 11/03/2003 | | Results for this | | | e | 12:54 PM | | procedure are in the | | | | PST | | results section. | + +--------+ + + + | C-REACTIVE PROTEIN | Routin | 11/03/2003 | | Results for this | | | e | 12:54 PM | | procedure are in the | | | | PST | | results section. | + +--------+ + + + | CBC ONLY | Routin | 11/03/2003 | | Results for this | | | e | 12:54 PM | | procedure are in the | | | | PST | | results section. | + +--------+ + + + | SEDIMENTATION RATE | Routin | 11/03/2003 | | Results for this | | | e | 12:54 PM | | procedure are in the | | | | PST | | results section. | + +--------+ + + + documented in this encounter Results US LOWER EXT NON-VASULAR RT (11/03/2003 3:56 PM PST) + + + + + + | Component | Value | Ref Range | Performed | Pathologist | | | | | At | Signature | + + + + + + | US LOWER | Radiologist 1: MICHELLE, | | | | | EXT | ADELIA Alcantar JR., | | | | | NON-VASULAR | M.D.ULTRASOUND OVER | | | | | RT | RIGHT HIP AREA: | | | | | | 11/03/2003 Dictated | | | | | | 11/03/2003 CLINICAL | | | | | | HISTORY: Status post | | | | | | multiple surgical | | | | | | procedures around | | | | | | theright hip. Please | | | | | | evaluate for fluid | | | | | | collection/abscess. | | | | | | TECHNIQUE: Real time | | | | | | ultrasound along the | | | | | | right hip was | | | | | | performedusing an 8 mHz | | | | | | linear transducer. | | | | | | Along the surgical | | | | | | line, there is | | | | | | asubcutaneous fluid | | | | | | collection approaching | | | | | | the skin at about | | | | | | the"weepy"-appearing | | | | | | site. Slightly | | | | | | anterior and medial to | | | | | | this, thefluid | | | | | | collection extends, but | | | | | | considerably more | | | | | | laterally. The reddened | | | | | | area on the surface of | | | | | | the skin is considerably | | | | | | moremedial than where | | | | | | the fluid collection is. | | | | | | Tissues in this area | | | | | | arevery echogenic in the | | | | | | reddened area with no | | | | | | discrete fluid | | | | | | collection. The fluid | | | | | | collection tracks along | | | | | | the fascial planes and | | | | | | is highlyseptated and | | | | | | rather thick-appearing. | | | | | | It measures | | | | | | approximately 10 | | | | | | cmlaterally and at its | | | | | | deepest point, | | | | | | approximately 4 cm in | | | | | | APdimension. IMPRESSION: | | | | | | Very septated/thick | | | | | | fluid collection deep to | | | | | | the surgical scar of | | | | | | theright hip, coming to | | | | | | the surface of the skin | | | | | | at the "weepy" | | | | | | pointalong the scar, | | | | | | appearing to be highly | | | | | | septated and probably | | | | | | multiplyloculated. | | | | | | This is rather lateral | | | | | | to the area of the skin | | | | | | that ismost reddened. | | | | | | Information was passed | | | | | | telephonically to | | | | | | Vanand the patient | | | | | | left the department | | | | | | returning to Dr. Araujo. | | | | | | END [...] +---------+ + + HIP 2 VIEWS RIGHT (11/03/2003 1:28 PM PST) + + + + + + | Component | Value | Ref Range | Performed | Pathologist | | | | | At | Signature | + + + + + + | HIP 2 VIEWS | Radiologist 1: | | | | | RIGHT | MOSHE FLOWERS, | | | | | | M.D.RIGHT HIP: | | | | | | 11/03/2003 Dictated | | | | | | 11/03/2003 TECHNIQUE: | | | | | | Two views. COMPARISON: | | | | | | 10/21/03. FINDINGS: | | | | | | The patient is status | | | | | | post removal of greater | | | | | | trochanterosteotomy | | | | | | hardware. There is | | | | | | greater definition of | | | | | | the greatertrochanter | | | | | | and also less permeative | | | | | | pattern noted in | | | | | | theintertrochanteric | | | | | | region. Further | | | | | | increase is identified | | | | | | in theadjacent | | | | | | heterotopic | | | | | | ossification. The | | | | | | appearance of the right | | | | | | hip isunchanged with | | | | | | medial osteoarthritis. | | | | | | IMPRESSION: 1. Status | | | | | | post removal of hardware | | | | | | from proximal right | | | | | | femur withevidence of | | | | | | healed greater | | | | | | trochanteric osteotomy. | | | | | | There is evidenceof | | | | | | greater definition of | | | | | | the cortex of the | | | | | | greater trochanter and | | | | | | lessosteopenia within | | | | | | the intertrochanteric | | | | | | region and proximal | | | | | | femoraldiaphysis | | | | | | consistent with | | | | | | resolving osteomyelitis | | | | | | and response totherapy. | | | | | | 2. 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 3. Medial | | | | | | osteoarthritis. END | | | | | | [...] | + +---------+ + + C-REACTIVE PROTEIN (11/03/2003 12:54 PM PST) + +---------+ + + + | Component | Value | Ref Range | Performed | Pathologist | | | | | At | Signature | + +---------+ + + + | C-REACTIVE | 1.2 (H) | <0.9 mg/dl | | | | PROTEIN | | | | | + +---------+ + + + + + | Specimen | + + | | + + + + + + + | Performing | Address | City/State/Zipcode | Phone Number | | Organization | | | | + + + + + | [facility] | [address] | [place] [address] | | | LABORATORY | | | | + + + + + SEDIMENTATION RATE (11/03/2003 12:54 PM PST) + +-------+ + + + | Component | Value | Ref Range | Performed | Pathologist | | | | | At | Signature | + +-------+ + + + | SEDIMENTATI | 3 | <21 mm/hr | [facility] | | [...] | + + + + + | [facility] | [address] | [place] [address] | | | PATHOLOGY | [address] | | | + + + + + | [facility] | [address] | [place] [address] | | | PATHOLOGY | [address] | | | + + + + + CBC ONLY WITH PLATELET (11/03/2003 12:54 PM PST) + + + + + + | Component | Value | Ref Range | Performed | Pathologist | | | | | At | Signature | + + + + + + | WHITE CELL | 8.9 | 4.4 - 11.0 K/cu | [facility] | | | COUNT | | mm | DEPARTMENT | | | | | | OF | | | | | | PATHOLOGY | | + + + + + + | RED CELL | 3.75 | 3.65 - 5.10 | [facility] | | | COUNT | | M/cu mm | DEPARTMENT | | | | | | OF | | | | | | PATHOLOGY | | + + + + + + | HEMOGLOBIN | 11.1 (L) | 11.4 - 15.0 | [facility] | | | | | g/dL | DEPARTMENT | | | | | | OF | | | | | | PATHOLOGY | | + + + + + + | HEMATOCRIT | 32.5 (L) | 33.0 - 44.6 % | [facility] | | | | | | DEPARTMENT | | | | | | OF | | | | | | PATHOLOGY | | + + + + + + | MCV | 86.7 | 80.0 - 96.0 fL | [facility] | | | | | | DEPARTMENT | | | | | | OF | | | | | | PATHOLOGY | | + + + + + + | MCH | 29.6 | 29.0 - 32.0 pg | [facility] | | | | | | DEPARTMENT | | | | | | OF | | | | | | PATHOLOGY | | + + + + + + | MCHC | 34.1 | 33.4 - 35.5 | [facility] | | | | | g/dL | DEPARTMENT | | | | | | OF | | | | | | PATHOLOGY | | + + + + + + | RDW | 17.7 (H) | 11.5 - 15.0 % | [facility] | | | | | | DEPARTMENT | | | | | | OF | | | | | | PATHOLOGY | | + + + + + + | PLATELET | 516 (H) | 150 - 400 K/cu | [facility] | | | COUNT | | mm | DEPARTMENT | | | | | | OF | | | | | | PATHOLOGY | | + + + + + + | MPV | 5.8 (L) | 7.4 - 10.4 fL | [...] DEPARTMENT OF | [address] | [place] [address] | | | PATHOLOGY | [address] | | | + + + + + | [facility] DEPARTMENT OF | [address] | [place] [address] | | | PATHOLOGY | [address] | | | + + + + + DIFFERENTIAL (11/03/2003 12:54 PM PST) + +-------+ + + + [...] +-------+ + + + | LYMPHOCYTE | 26 | 18 - 42 % | [facility] [...] +-------+ + + + | NEUTROPHIL | 5.8 | 1.8 - 7.7 K/cu | [facility] | | | # | | mm | DEPARTMENT | | | | | | OF | | | | | | PATHOLOGY | | + +-------+ + + + | LYMPHOCYTE | 2.3 | 1.0 - 4.8 K/cu | [facility] [...] | + + + + + | [facility] DEPARTMENT OF | [address] | [place] [address] | | | PATHOLOGY | [address] | | | + + + + + | [facility] DEPARTMENT OF | [address] | [place] [address] | | | PATHOLOGY | [address] | | | + + + + + documented in this encounter Visit Diagnoses Not on filedocumented in this encounter
--- OUTSIDE RECORDS SUMMARY | ~2020-03-28 | XMS | Encounter Summary ---
Demographics + + + | Address | [address] | | | [place] [address] | + + + | Home Phone [...] Team Providers + +------+ + | Care Granite Block Paver Name | Role | Phone | + [...] [place] | | | | | | [facility] and | | | | | | Counseling [address] | | | | | | [address] [place], | | | | | | [place] [address] | | | | | | [phone] | | | | | | | [...] | | | | | | 09/25/2003 [id number] | | | | | | hours [...] + + + | [facility] | [address] | [place] [address] | | | LABORATORY | | | [...] | + + + + + | [facility] DEPARTMENT | [address] [facility] | [place] [address] | | | PATHOLOGY | [address] | | | + + + + + | [facility] DEPARTMENT OF | [address] [facility] | [place] [address] | | | PATHOLOGY | [address] [...] | + + + + + | [facility] | [address] [facility] | [place] [address] | | | PATHOLOGY | [address] | | | + + + + + | [facility] | [address] [facility] | [place] [address] | | | PATHOLOGY | [address] [...] | [facility] | [address] | [place] [address] | | | PATHOLOGY | [address] | | | + + + + + | [facility] | [address] | [place] [address] | | | PATHOLOGY | [address] | | | + + + + + documented in this encounter Visit Diagnoses Not on filedocumented in this encounter"
--- OUTSIDE RECORDS SUMMARY | ~2020-03-28 | XMS | Encounter Summary ---
Demographics + + + | Address | [address] | | | [place] [address] | + + + | Home Phone [...] Team Providers + +------+ + | Care Sheep Farm Worker Name | Role | Phone | + +------+ + PCP | Unavailable | + +------+ + Reason for Visit + + + | Reason | Comments | + + + | Follow-up visit | | + + + Consultation (Routine) +--------+--------+ + + + + | Status | Reason | Specialty | Diagnoses / | Referred By | Referred To | | | | | Procedures | Contact | Contact | +--------+--------+ + + + + | Closed | | Orthopedics | Diagnoses | Jose, | Olivia, | | | | | | MD Lloyd | MD Gino | | | | | Osteoarthrit | [address] | [address] | | | | | is of hip | [address] | | | | | Procedures | Rd | [place], | | | | | CONSULT TO | [place], [place] | [place] [address] | | | | | ORTHOPEDICS | [address] | | | | | | AND | | | | | | | REHABILITATI | | | | | | | ON | | | +--------+--------+ + + + + Encounter Details +--------+---------+ + + + | Date | Type | Department | Care Team | Description | +--------+---------+ + + + | 10/02/ | Office | Orthopaedics at | Gino Baker MD | Osteoarthritis of | | 2006 | Visit | [facility] [address] | [address] | Hip (Primary Dx) | | | | [address] | [place], | | | | | Mailcode: [id number] | [place] [address] | | | | | [facility] | | | | | | [place], [place] | | | | | | [address] | | | | | | [phone] | | | +--------+---------+ + + + [...] as of this encounter Progress Notes Interface, Atm Mechanic In - 10/05/2006 2:33 AM PST [id number] CHAD Osei [id number] Clinic Date: 10/02/2006 Clinic: Orthopaedics Shelby Galdamez is seen after some interval. She has a somewhat complex medical history. She was operated in July 2004 for osteoarthritis of the hip and had a chilectomy. The greater trochanter was removed at that time, and it apparently pulled up and was later put back down with screws, and she got an infection and was treated with wound VAC and that eventually cleared up. Her last operation she indicates was October 2004. In the 2-year interval since that time, she has reported ongoing pain in the hip and has a limp. She is anxious to have something done about it. She does indicate that she from time to time has pain. She does have fever and chills and feels like she has the flu. She also indicates she has been losing some weight, but she has been very nonactive. She recently had episodes of bleeding either vaginally or rectally, she is not sure, and this apparently stopped after a time, but the etiology is not clear. She may well have hemorrhoids, and the question also is whether she might have polyps. She has previously had a total hysterectomy, so it seems unlikely that this was vaginal bleeding. She also is complaining of a lot of GI problems of nausea and vomiting that have been pretty troublesome to her. She lives alone in an apartment. She gets some home-health care 29 hours every 2 weeks because she is unable to carry out her normal activities of daily living. She indicates she can walk 1 block with a cane. She can sit for about half an hour. She sometimes can drive a car okay but other times not. She indicates she simply pulls over to the side of the road, lies down for a while when it bothers her. She describes her pain as constant, awakens her at night, and she is presently taking 5 Vicodin a day as well as Flexeril 20 mg twice a day for muscle spasm. In the past, she has had injections into the hip joint to see if this would relieve her pain. On one occasion, the injection into the hip joint did produce dramatic improvement of the pain and on another occasion it did not. She is not sure why. Physical Examination: General: She is a somewhat garrulous woman who does not appear to be in severe pain although is in discomfort on examination and walks with a limp. Vital Signs: She is 5 feet 4 inches, and she weighs 234 pounds and indicates that she used to weigh 290 pounds. She is a smoker but is planning to quit. Musculoskeletal: She demonstrates on examination good flexion and extension of the hip. She has pain with abduction, adduction, or rotation in either direction. She has a mild flexion contracture of the hip, and when attempts were made to straighten her hip fully, she complains of significant pain. Her knee, ankle, and foot appear good. There is no neurovascular compromise. Review of her radiographs indicates that she has moderate osteoarthritis of the hip joint. There is a lot of ectopic bone around the hip, and there is one fairly large lateral spike that is palpable and coming from the proximal femur. She is 46 years of age and is hoping to get enough pain relief so that she can function normally and care for herself. It is my opinion that the first thing to do is to sort out the bleeding which I presume is rectal bleeding, and she needs some further workup for this to determine its source and whether there are any ongoing issues that need to be sorted out there. The second issue is that of her upper GI symptoms. She appears to have some GI problems that would require looking into and sorting out before consideration of a total hip. She would like to have a total hip replacement, and at one time, I indicated I would do so; however, I would like her to see Dr. Acevedo and have the other issues taken care of in preparation and get his opinion about whether he thinks a total hip would be appropriate. I plan to review her labs again to verify that all her cultures have been negative with her hip aspirations and injections. She will be in touch with me after she further sees Dr. Acevedo. Gino Baker M.D. KEE / SALEEM [id number] / [id number] / [id number] / [id number] cc: Quintin Tirado Electronically signed by Gino Baker 10-04-2006 03:05:12 PM Bernadine Taylor - 10/03/2006 7:39 AM PSTThis office note has been dictated. documented in this encounte r Plan of Treatment Not on filedocumented as of this encounter Visit Diagnoses + + | Diagnosis | + + | Osteoarthritis of hip - Primary Osteoarthrosis, unspecified whether generalized or | | localized, pelvic region and thigh | + + documented in this encounter"
--- OUTSIDE RECORDS SUMMARY | ~2020-03-28 | XMS | Encounter Summary ---
Demographics + + + | Address | [address] | | | [place] [address] | + + + | Home Phone [...] Team Providers + +------+ + | Care Lacquer Mixer Name | Role | Phone | + +------+ + PCP | Unavailable | + +------+ + Reason for Visit +--------+ + | Reason | Comments | +--------+ + | Pain | She had her injection and still is in a lot of pain | +--------+ + Encounter Details +--------+ + + + + | Date | Type | Department | Care Team | Description | +--------+ + + + + | 06/12/ | Telephone | Orthopaedics at | Lloyd Garcia MD | Pain (She had her | | 2005 | | [facility] [address] | | injection and still | | | | [address] | | is in a lot of pain) | | | | Mailcode: [id number] | | | | | | [facility] | | | | | | [place], [place] | | | | | | [address] | | | | | | [phone] | | | +--------+ + + + [...]
--- OUTSIDE RECORDS SUMMARY | ~2020-03-28 | XMS | Encounter Summary ---
Demographics + + + | Address | [address] | | | [place] [address] | + + + | Home Phone [...] Team Providers + +------+ + | Care Qi Specialist Name | Role | Phone | [...] | | | | Mailcode: [id number] | [facility] [place] | | | | | [facility] | [address] | | | | | [place], [place] | [phone] | | | | | [address] | | | | | | [phone] | | | +--------+ + + + [...]
--- OUTSIDE RECORDS SUMMARY | ~2020-03-28 | XMS | Encounter Summary ---
Demographics + + + | Address | [address] | | | [place] [address] | + + + | Home Phone [...] Team Providers + +------+ + | Care Hoisting Engine Operator Name | Role | Phone | + +------+ + PCP | Unavailable | + +------+ + Encounter Details +--------+ + + + + | Date | Type | Department | Care Team | Description | +--------+ + + + + | 01/07/ | Office | [facility] | Note, [...] as of this encounter Progress Notes Interface, Loom Fixer Apprentice In - 07/28/2006 5:01 AM PSTCLINIC DATE: 01/07/2001 ORTHOPEDIC CLINIC HISTORY: This is an attending morgan element note on this 40-year-old obese female followed for her hip degenerative joint disease with no known low back pain secondary to spondylosis. She returns to clinic for her regularly scheduled 3-month followup. She is approximately 3 months after her last injection and feels that her hip continues to do fairly well. She continues with the home exercise program, exercises per Physical Therapy on an ongoing basis and reports that her greatest pain appears to be from her back into her buttock and down the leg, but this is even less severe than her lateral hip pain. She is on multiple medications including Neurontin which she is doping. She has bottles of indomethacin as well as other anti-inflammatory medications, aspirin, codeine, caffeine-combination medication, propranolol, and several anti-depressants as well. Her medications are provided by her primary care physician. She reports that she has been unable to work because of her hip pain primarily, but on further query it appears that she feels she cannot work because she cannot tolerate prolonged sitting or lying down or even frequent changes in position. PHYSICAL EXAMINATION: She ambulates with a moderate to severe right gluteus medius limp. She has a positive right Trendelenburg's sign. Her gait improves with a cane in the left hand. Hip range of motion on the right is 5 to 100 degrees. She has approximately 30 degrees of internal and external rotation each of which is very painful at the extremes. Left hip range of motion is 0 to 120 degrees with 30 degrees of internal rotation and 45 degrees of external rotation without pain at the extremes. She has a positive Yola's test with exquisite point tenderness over the greater trochanter. Straight leg raising test is positive for posterior thigh pain only at approximately 60 degrees. DIAGNOSTIC DATA: X-rays show severe right hip degenerative joint disease with a collar of marginal osteophytes and asymmetric joint space loss, worse medially. ASSESSMENT: Severe right hip degenerative joint disease with severe right greater trochanteric bursitis and symptomatic low back pain. DISPOSITION: I have recommended that she continue with her Physical Therapy, aquatic exercise program, and that we add a formal program for her trochanteric bursitis which will include stretching of the iliotibial band, strengthening of the hip abductors and modalities over the greater trochanters. She should have this once or twice per week for 6 weeks and will return to the clinic in 6 to 8 weeks' time for reevaluation. She should continue with her anti-inflammatory medication if she remains symptomatic. I believe she will benefit from a steroid and local anesthetic injection into her right greater trochanter. We have again had a lengthy discussion about the pros and cons of the surgical intervention for her hip pain which clearly is the primary problem here. Because of pain in her hip, she has been unable to maintain abductor strength and has lost range of motion and therefore has a tight iliotibial band and secondary trochanteric bursitis. We have discussed options from cheilectomy to total hip replacement. I would very much like to delay her total hip replacement until she is at least in her late 40s. However, if she continues to require the narcotic pain medications and is unable to be a productive member of society because of persistent hip pain, especially if it is refractory to injections or adequate relief lasts less than 3 months, then I believe she may benefit from earlier surgical intervention. Lloyd Garcia M.D. Web User Experience Strategist [facility] / [id number] / [id number] / [id number] / cc: Helio Noland M.D. [address], [place] [id number] signed by Interface, Loom Fixer Apprentice In at 07/28/2006 5: 01 AM PSTInterface, Loom Fixer Apprentice In - 07/28/2006 5:01 AM PSTCLINIC DATE: 01/07/2001 ORTHOPEDIC CLINIC SUBJECTIVE: This lady who is 41-year-old with degenerative joint disease of the right hip comes to follow up with Dr. Garcai today with complaints of pain in the right hip as well as pain in the right buttock and the right trochanteric region, and she says she has been painful for the past few months which has aggravated. She also says that her steroid injections into the hip have been of great help, and the last one was really a good one. PHYSICAL EXAMINATION: She has got full range of motion of the hip from 5 degrees to about 90 degrees on the right, 30 degrees internal and 30 degrees external rotation. She is tender over the greater trochanteric region. Straight leg raising test and sciatic stretch test seems to be positive but her symptom seems to be more on the greater trochanter today. X-rays of her hip do show osteophytic changes that do not involve the joint space on the x-rays, which are not any different from the previous x-rays. The case has been reassessed by Dr. Garcia and has been felt that she continue her physiotherapy for the time, and probable injection on the right trochanteric region in the next visit if she does not get better at that stage. ASSESSMENT: Severe right hip degenerative joint disease. DISPOSITION: The plan at this stage is to continue with her antiinflammatory medication which should be taken care of by her primary care physician. She will be coming back to the clinic for a possible injection of the right trochanteric region if she does not get better with the physiotherapy, and she will be seen in the Outpatient Clinic in about 10 weeks' time. Malcom Her M.D. / SALEEM [id number] / [id number] / [id number] / [id number] Tdocumented in this encounter Plan of Treatment Not on filedocumented as of this encounter Visit Diagnoses Not on filedocumented in this encounter"
--- OUTSIDE RECORDS SUMMARY | ~2020-03-28 | XMS | Encounter Summary ---
Demographics + + + | Address | [address] | | | [place] [address] | + + + | Home Phone | | + + + | Preferred Language | Unknown | + + + | Marital Status | Single | + + + | Alevism Affiliation | PRE | + + + [...] Team Providers + +------+ + | Care Electrical Hardware Engineer Name | Role | Phone | [...] as of this encounter Progress Notes Interface, Lumber Sales Supervisor In - 07/10/2006 1:00 AM PDTCLINIC DATE: [...] right total hip replacement. Lloyd Garcia M.D. Sheriff'S Sergeant [facility] / [id number] / [id number] / [id number] / cc: JILLIAN TODD MD [address] [id number] signed by Interface, Lumber Sales Supervisor In at 07/10/2006 1:0 0 AM PDTdocumented in this encounter Plan of Treatment Not on filedocumented as of this encounter Visit Diagnoses Not on filedocumented in this encounter"
--- OUTSIDE RECORDS SUMMARY | ~2020-03-28 | XMS | Encounter Summary ---
Demographics + + + | Address | [address] | | | [place] [address] | + + + | Home Phone [...] Team Providers + +------+ + | Care Managed Care Specialist Name | Role | Phone | [...] as of this encounter Discharge Summaries Interface, Mall Plant Caretaker In - 03/06/2006 1:10 AM PDTAdmission Date: [...] time of discharge. She initially had a JAVA MANAGER that was weaned off as well as [...]
--- OUTSIDE RECORDS SUMMARY | ~2020-03-28 | XMS | Encounter Summary ---
Demographics + + + | Address | [address] | | | [place] [address] | + + + | Home Phone [...] Team Providers + +------+ + | Care Automotive Worker Foreman Name | Role | Phone | + [...] as of this encounter Progress Notes Interface, Cardiology Clinical Nurse Specialist In - 04/01/2006 3:12 AM PDTCLINIC DATE: [...] a total hip replacement. Lloyd Garcia M.D. Channel Rebuilder, Orthopedics and Rehabilitation / [id number] / [id number] / [id number] / cc: Ninfa Guillen M.D. [address] [place] [id number] signed by Interface, Cardiology Clinical Nurse Specialist In at 04/01/2006 3:1 2 AM PDTdocumented in this encounter Plan of Treatment Not on filedocumented as of this encounter Visit Diagnoses Not on filedocumented in this encounter"
--- OUTSIDE RECORDS SUMMARY | ~2020-03-28 | XMS | Encounter Summary ---
Demographics + + + | Address | [address] | | | [place] [address] | + + + | Home Phone [...] Team Providers + +------+ + | Care Print Shop Chief Clerk Name | Role | Phone | [...]
--- OUTSIDE RECORDS SUMMARY | ~2020-03-28 | XMS | Encounter Summary ---
Demographics + + + | Address | [address] | | | [place] [address] | + + + | Home Phone [...] Team Providers + +------+ + | Care Dice Table Operator Name | Role | Phone | + +------+ + PCP | Unavailable | + +------+ + Encounter Details +--------+ + + + + | Date | Type | Department | Care Team | Description | +--------+ + + + + | 03/14/ | Office | [facility] | Note, [...] as of this encounter Progress Notes Interface, Supervisor Paper Coating In - 08/16/2006 1:10 AM PSTCLINIC DATE: 03/14/2000 ORTHOPEDIC CLINIC HISTORY: This is a nearly 40-year-old obese female with DJD of the right hip documented on plain radiographs and CT arthrogram who returns to the clinic today for followup. She states that after her last clinic visit last month, her insurance has finally approved a three-month course of physical therapy with hydrotherapy. She goes three to four times per week and spends one to one and one-half hours in the pool. She finds it is helping her to tolerate her pain. She is now able to have adequate pain control with indomethacin and diflunisal. She takes the indomethacin three times daily. She can walk three to four blocks with a cane in the left hand. However, if she increases her activities, such as doing housework, it can cause her a two-day setback, where she needs nearly continuous bedrest. PHYSICAL EXAMINATION: GENERAL: She ambulates with a moderate to severe right coxalgic gait. MUSCULOSKELETAL: Right hip range of motion is 0-90 degrees flexion, 30 degrees of internal and external rotation and abduction and adduction each with pains at the extreme of rotation, flexion, and abduction. The left hip range of motion is 0-120 degrees blocked by soft tissue with 30 degrees of internal rotation, 60 degrees of external rotation, 30 degrees of adduction, and 60 degrees of abduction, which is nonpainful. She has 5/5 strength in the bilateral quadriceps, hamstrings, hip abductors, and left hip flexors in the straight leg raising and 4+/5 right iliopsoas and straight leg raising strength which is painful. LABORATORY DATA: X-rays show no significant change in her moderate to severe degenerative joint disease of the right hip with large marginal osteophytes. DISPOSITION: We will continue her physical therapy and nonsteroidal anti-inflammatory pain medication and have her return to the clinic in three to six months for reevaluation. We will obtain x-rays at that point only if her symptoms have become so severe that she may be requiring surgical intervention. Lloyd Garcia M.D. Tooling Inspector of Orthopedics and Rehabilitation / [id number] / [id number] / [id number] / cc: Helio Noland M.D. Juan JoseJuan Jose [place], [place] [id number] signed by Interface, Supervisor Paper Coating In at 08/16/2006 1: 10 AM PSTdocumented in this encounter Plan of Treatment Not on filedocumented as of this encounter Visit Diagnoses Not on filedocumented in this encounter"
--- OUTSIDE RECORDS SUMMARY | ~2020-03-28 | XMS | Encounter Summary ---
Demographics + + + | Address | [address] | | | [place] [address] | + + + | Home Phone [...] Providers + +------+ + | Care Gas Tender Name | Role | Phone | + +------+ + PCP | Unavailable | + +------+ + Encounter Details +--------+ + + + + | Date | Type | Department | Care Team | Description | +--------+ + + + + | 09/26/ | Results | | Shruti Manjarrez | | | 2002 | Only | [...] + | CBC ONLY | Routin | 09/28/2003 | | Results for this | | | e | 7:50 AM | | procedure are in the | | | | PST | | results section. | + +--------+ + + + | BASIC METABOLIC SET | Routin | 09/27/2003 | | Results for this | | (NA, K, CL, TCO2, | e | 3:57 AM | | procedure are in the | | BUN, CR, GLU, CA) | | PST | | results section. | + +--------+ + + + | CBC ONLY | Routin | 09/27/2003 | | Results for this | | | e | 3:57 AM | | procedure are in the | | | | PST | | results section. | + +--------+ + + + | HEMOGLOBIN A1C, | Routin | 09/27/2003 | | Results for this | | BLOOD | e | 3:57 AM | | procedure are in the | | | | PST | | results section. | + +--------+ + + + | X-RAY CHEST 1 VIEW | Urgent | 09/26/2003 | | Results for this | | | | 3:20 PM | | procedure are in the | | | | PST | | results section. | + +--------+ + + + | CBC ONLY | Routin | 09/26/2003 | | Results for this | | | e | 5:50 AM | | procedure are in the | | | | PST | | results section. | + +--------+ + + + | HEMOGLOBIN A1C, | Routin | 09/26/2003 | | Results for this | | BLOOD | e | 5:50 AM | | procedure are in the | | | | PST | | results section. | + +--------+ + + + documented in this encounter Results CBC ONLY WITH PLATELET (09/28/2003 7:50 AM PST) + + + + + + | Component | Value | Ref Range | Performed | Pathologist | | | | | At | Signature | + + + + + + | WHITE CELL | 12.9 (H) | 4.4 - 11.0 K/cu | [facility] | | | COUNT | | mm | DEPARTMENT | | | | | | OF | | | | | | PATHOLOGY | | + + + + + + | RED CELL | 2.84 (L) | 3.65 - 5.10 | [facility] | | | COUNT | | M/cu mm | DEPARTMENT | | | | | | OF | | | | | | PATHOLOGY | | + + + + + + | HEMOGLOBIN | 8.0 (L) | 11.4 - 15.0 | [facility] | | | | | g/dL | DEPARTMENT | | | | | | OF | | | | | | PATHOLOGY | | + + + + + + | HEMATOCRIT | 23.8 (L) | 33.0 - 44.6 % | [facility] | | | | | | DEPARTMENT | | | | | | OF | | | | | | PATHOLOGY | | + + + + + + | MCV | 83.9 | 80.0 - 96.0 fL | [facility] | | | | | | DEPARTMENT | | | | | | OF | | | | | | PATHOLOGY | | + + + + + + | MCH | 28.2 (L) | 29.0 - 32.0 pg | [...] + + + + | RDW | 13.6 | 11.5 - 15.0 % | [facility] | | | | | | DEPARTMENT | | | | | | OF | | | | | | PATHOLOGY | | + + + + + + | PLATELET | 578 (H) | 150 - 400 K/cu | [...] | + + + + + | [facility] | [address] | [place] [address] | | | PATHOLOGY | [address] | | | + + + + + | [facility] | [address] [place] [address] [address] | [place] [address] | | | PATHOLOGY | [address] | | | + + + + + HEMOGLOBIN A1C (09/27/2003 3:57 AM PST) + + + + + + | Component | Value | Ref Range | Performed | Pathologist | | | | | At | Signature | + + + + + + | HEMOGLOBIN | 5.7Comment: | <5.8 % | | | | A1C | Non-Diabetic: | | | | | | | | | | | | 4.0-5.7 % Risk For | | | | | | Chronic Complications | | | | | | in Adults: Low | | | | | | risk of complications: | | | | | | <7.0 | | | | | | % Intermediate | | | | | | risk of complications | | | | | | 7.0-7.9 % High | | | | | | risk of complications | | | | | | >7.9 % | | | | | | Test performed by | | | | | | [facility] | | | | | | [facility]. | | | | + + + + + + + + | Specimen | + + | | + + + + + + + | Performing | Address | City/State/Zipcode | Phone Number | | Organization | | | | + + + + + | [facility] | [address] | [place] [address] | | | LABORATORY | | | | + + + + + CBC ONLY WITH PLATELET (09/27/2003 3:57 AM PST) + + + + + [...] + + + | RED CELL | 3.00 (L) | 3.65 - 5.10 | [facility] | | | COUNT | | M/cu mm | DEPARTMENT | | | | | | OF | | | | | | PATHOLOGY | | + + + + + + | HEMOGLOBIN | 8.4 (L) | 11.4 - 15.0 | [facility] | | | | | g/dL | DEPARTMENT | | | | | | OF | | | | | | PATHOLOGY | | + + + + + + | HEMATOCRIT | 25.3 (L) | 33.0 - 44.6 % | [...] + + + + | MCH | 28.1 (L) | 29.0 - 32.0 pg | [...] + + + + | RDW | 14.0 | 11.5 - 15.0 % | [facility] | | | | | | DEPARTMENT | | | | | | OF | | | | | | PATHOLOGY | | + + + + + + | PLATELET | 546 (H) | 150 - 400 K/cu | [...] | + + + + + | [facility] | [address] | [place] [address] | | | PATHOLOGY | [address] | | | + + + + + | [facility] | [facility] [address] | [place] [address] | | | PATHOLOGY | [address] | | | + + + + + BASIC METABOLIC SET (09/27/2003 3:57 AM PST) + +-------+ + + + | Component | Value | Ref Range | Performed | Pathologist | | | | | At | Signature | + +-------+ + + + | GLUCOSE, | 108 | 65 - 110 mg/dL | [facility] [...] +-------+ + + + | CREATININE | 1.0 | 0.6 - 1.1 mg/dL | [facility] | | | PLASMA | | | DEPARTMENT | | | (LAB) | | | OF | | | | | | PATHOLOGY | | + +-------+ + + + | SODIUM, | 136 | 136 - 145 | [facility] | | | PLASMA | | mmol/L | DEPARTMENT | | | (LAB) | | | OF | | | | | | PATHOLOGY | | + +-------+ + + + | POTASSIUM, | 3.8 | 3.5 - 5.1 | [facility] | | | PLASMA | | mmol/L | DEPARTMENT | | | (LAB) | | | OF | | | | | | PATHOLOGY | | + +-------+ + + + | CHLORIDE, | 100 [...] +-------+ + + + | CALCIUM, | 8.6 | 8.5 - 10.5 | [facility] | [...] | + + + + + | [facility] | [address] | [place] [address] | | | PATHOLOGY | [address] | | | + + + + + | [facility] | [address] [place] [address] [address] | [place] [address] | | | PATHOLOGY | [address] | | | + + + + + CHEST 1 VIEW (09/26/2003 3:20 PM PST) + + + + + + | Component | Value | Ref Range | Performed | Pathologist | | | | | At | Signature | + + + + + + | CHEST, 1 | Radiologist 1: ROSALBA, | | | | | BEN | HUSSEIN GaonaPORTABLE CHEST: | | | | | | 09/26/2003 Dictated | | | | | | 09/27/2003 COMPARISON: | | | | | | No comparison film. | | | | | | INDICATION: PICC line | | | | | | placement. FINDINGS: A | | | | | | left-sided PICC | | | | | | catheter has its tip | | | | | | involving thecavo-atrial | | | | | | junction. Cardiac | | | | | | silhouette is normal, | | | | | | and there is nopulmonary | | | | | | edema, pneumothorax, or | | | | | | pleural effusion. | | | | | | Osseousstructures | | | | | | demonstrate bilateral | | | | | | rudimentary cervical | | | | | | ribs. IMPRESSION: 1. | | | | | | Low lung volumes with | | | | | | bibasilar atelectasis. | | | | | | 2. Left-sided PICC | | | | | | catheter in good | | | | | | position. END OF | | | | | [...] | | + +---------+ + + HEMOGLOBIN A1C (09/26/2003 5:50 AM PST) + + + + + + | Component | Value | Ref Range | Performed | Pathologist | | | | | At | Signature | + + + + + + | HEMOGLOBIN | 6.1 (H)Comment: | <5.8 % | | | | A1C | Non-Diabetic: | | | | | | | | | | | | 4.0-5.7 % Risk For | | | | | | Chronic Complications | | | | | | in Adults: Low | | | | | | risk of complications: | | | | | | <7.0 | | | | | | % Intermediate | | | | | | risk of complications | | | | | | 7.0-7.9 % High | | | | | | risk of complications | | | | | | >7.9 % | | | | | | Test performed by | | | | | | [facility] | | | | | | [facility]. | | | | + + + + + + + + | Specimen | + + | | + + + + + + + | Performing | Address | City/State/Zipcode | Phone Number | | Organization | | | | + + + + + | [facility] | [address] | [place] [address] | | | LABORATORY | | | | + + + + + CBC ONLY WITH PLATELET (09/26/2003 5:50 AM PST) + + + + + + | Component | Value | Ref Range | Performed | Pathologist | | | | | At | Signature | + + + + + + | WHITE CELL | 14.3 (H) | 4.4 - 11.0 K/cu | [facility] | | | COUNT | | mm | DEPARTMENT | | | | | | OF | | | | | | PATHOLOGY | | + + + + + + | RED CELL | 2.82 (L) | 3.65 - 5.10 | [facility] | | | COUNT | | M/cu mm | DEPARTMENT | | | | | | OF | | | | | | PATHOLOGY | | + + + + + + | HEMOGLOBIN | 8.0 (L) | 11.4 - 15.0 | [facility] | | | | | g/dL | DEPARTMENT | | | | | | OF | | | | | | PATHOLOGY | | + + + + + + | HEMATOCRIT | 23.9 (L) | 33.0 - 44.6 % | [facility] | | | | | | DEPARTMENT | | | | | | OF | | | | | | PATHOLOGY | | + + + + + + | MCV | 84.6 | 80.0 - 96.0 fL | [facility] | | | | | | DEPARTMENT | | | | | | OF | | | | | | PATHOLOGY | | + + + + + + | MCH | 28.4 (L) | 29.0 - 32.0 pg | [...] + + + + | PLATELET | 549 (H) | 150 - 400 K/cu | [...] + + + + | [facility] | [address] | [place] [address] | | | PATHOLOGY | [address] | | | + + + + + | [facility] DEPARTMENT OF | [address] | [place] [address] | | | PATHOLOGY | [address] | | | + + + + + documented in this encounter Visit Diagnoses Not on filedocumented in this encounter"
--- OUTSIDE RECORDS SUMMARY | ~2020-03-28 | XMS | Encounter Summary ---
Demographics + + + | Address | [address] | | | [place] [address] | + + + | Home Phone [...] Team Providers + +------+ + | Care Staple Processing Machine Operator Name | Role | Phone [...] | | | Mailcode: [id number] | [place], [place] | | | | | [facility] | [address] | | | | | [facility] [place] | [phone] | | | | | [address] | | | | | | [phone] | | | +--------+ + + + [...]
--- OUTSIDE RECORDS SUMMARY | ~2020-03-28 | XMS | Encounter Summary ---
Demographics + + + | Address | [address] | | | [place] [address] | + + + | Home Phone | | + + + | Preferred Language | Unknown | + + + | Marital Status | Single | + + + | Anabaptist Affiliation | PRE | + + + | Race | White | + + + | Ethnic Group | Not or | + + + Author + + + | Author | [facility] | + + + | Organization | [facility] | + + + | [...] Team Providers + +------+ + | Care Inventory Analyst Name | Role | Phone | [...] as of this encounter Progress Notes Interface, Water Quality Specialist In - 08/03/2006 5:18 AM PSTCLINIC DATE: [...] hip at that time. Lloyd Garcia M.D. Repair Cameraman of Orthopedics and Rehabilitation / [id number] / [id number] / [id number] / [id number] cc: Helio Noland M.D. P.OJuan [facility] [address] [place], [place] [id number] signed by Interface, Water Quality Specialist In at 08/03/2006 5: 18 AM PSTdocumented in this encounter Plan of Treatment Not on filedocumented as of this encounter Visit Diagnoses Not on filedocumented in this encounter"
--- OUTSIDE RECORDS SUMMARY | ~2020-03-28 | XMS | Encounter Summary ---
Demographics + + + | Address | [address] | | | [place] [address] | + + + | Home Phone [...] Team Providers + +------+ + | Care Optical Instrument Assembler Name | Role | Phone | [...] | Procedures | [address] | [address] [place], | | | | | CONSULT TO | [place], [place] | [place] | | | | | ORTHOPEDICS | [address] | [address] | | | | | AND | Phone: | Phone: | | | | | REHABILITATI | [phone] | [phone] | | | | | ON | Fax: | Fax: | | | | | | [phone] | [phone] | +--------+--------+ + + + + Encounter Details +--------+---------+ + + + | Date | Type | Department | Care Team | Description | +--------+---------+ + + + | 04/10/ | Office | Orthopaedic Spine | Krishna, Vince, MD | Back pain (Primary | | 2010 | Visit | Center at [facility] [address] | [address] | Dx) | | | | [address] | [address] [place], | | | | | Mailcode: [id number] | [place] [address] | | | | | [facility] | [phone] | | | | | and Healing, | | | | | | Building | | | | | | Floor [place], [place] | | | | | | [address] | | | | | | [phone] | | | +--------+---------+ + + + [...]
--- OUTSIDE RECORDS SUMMARY | ~2020-03-28 | XMS | Encounter Summary ---
Demographics + + + | Address | [address] | | | [place] [address] | + + + | Home Phone [...] Team Providers + +------+ + | Care Buttermaker Helper Name | Role | Phone | [...]
--- OUTSIDE RECORDS SUMMARY | ~2020-03-28 | XMS | Encounter Summary ---
Demographics + + + | Address | [address] | | | [place] [address] | + + + | Home Phone [...] Team Providers + +------+ + | Care Coil Binder Name | Role | Phone | + [...] | | + +---------+ + + | [facility] DEPARTMENT OF | | | | | RADIOLOGY | | | | + +---------+ + + documented in this encounter Visit Diagnoses Not on filedocumented in this encounter"
--- OUTSIDE RECORDS SUMMARY | ~2020-03-28 | XMS | Encounter Summary ---
Demographics + + + | Address | [address] | | | [place] [address] | + + + | Home Phone [...] Team Providers + +------+ + | Care Route Sales Person Name | Role | Phone | + +------+ + | Marta Jenkins STEEL ERECTOR | PCP | | + +------+ + Encounter Details +--------+ + + + + | Date | Type | Department | Care Team | Description | +--------+ + + + + | 12/18/ | Ancillary | Registration 3181 | Gino Baker MD | | | 2005 | Registratio | [address] | [address] | | | | n | Jamie Mailcode: [address] [place], | | | | | [place], [place] | [place] [address] | | | | | [address] | | | | | | [phone] | | | +--------+ + + + [...]
--- OUTSIDE RECORDS SUMMARY | ~2020-03-28 | XMS | Encounter Summary ---
Demographics + + + | Address | [address] | | | [place] [address] | + + + | Home Phone [...] Providers + +------+ + | Care Collar Turner Name | Role | Phone | + [...] | | | | | | | [place], | | | | | | | [place] [address] | +--------+--------+ + + + + Encounter Details +--------+---------+ + + + | Date | Type | Department | Care Team | Description | +--------+---------+ + + + | 09/08/ | Office | Radiation Oncology | Kevin Arenas MD | Heterotopic Tissue | | 2007 | Visit | at [facility] [address] | [address] | (Primary Dx) | | | | [address] | [place], [place] | | | | | [place], 4th floor | [address] | | | | | [place], [place] | [phone] | | | | | [address] | | | | | | [phone] | | | +--------+---------+ + + + [...] will treatment her today. KEVIN ARENAS MD [facility] [place] [address] r Miller - 09/08/2008 2:21 PM PST [...] DAVID, bone graft and HO excision for tire worker masood osteoarthritis, HO formation, and non-union of [...]
--- OUTSIDE RECORDS SUMMARY | ~2020-03-28 | XMS | Encounter Summary ---
Demographics + + + | Address | [address] | | | [place] [address] | + + + | Home Phone [...] Team Providers + +------+ + | Care Cleaners Name | Role | Phone | + [...] | | [address] | [address] [place], | | | | | Mailcode: [id number] | [place] [address] | | | | | [facility] | | | | | | [place] | | | | | | [address] | | | | | | [phone] | | | +--------+ + + + [...] | | HIP RT | Raegan HERRERA M.D.STUDY: | | | [...]
--- OUTSIDE RECORDS SUMMARY | ~2020-03-28 | XMS | Encounter Summary ---
Demographics + + + | Address | [address] | | | [place] [address] | + + + | Home Phone [...] Team Providers + +------+ + | Care Bellhop Service Captain Name | Role | Phone | + [...] | | [address] | [address] [place], | | | | | Mailcode: [id number] | [place] [address] | | | | | [facility] | | | | | | [place], [place] | | | | | | [address] | | | | | | [phone] | | | +--------+ + + + [...]
--- OUTSIDE RECORDS SUMMARY | ~2020-03-28 | XMS | Encounter Summary ---
Demographics + + + | Address | [address] | | | [place] [address] | + + + | Home Phone [...] Team Providers + +------+ + | Care Blast Furnace Keeper Name | Role | Phone | + +------+ + | Marta Jenkins STORAGE FACILITY RENTAL CLERK | PCP | | + +------+ + [...] | Jamie Mailcode: [address] [place], | | | | | [place], [place] | [place] [address] | | | | | [address] | | | | | | [phone] | | | +--------+ + + + [...]
--- OUTSIDE RECORDS SUMMARY | ~2020-03-28 | XMS | Encounter Summary ---
Demographics + + + | Address | [address] | | | [place] [address] | + + + | Home Phone [...] + + + + + | Casandra Simth | ROBERTO | [place] | | + + + + + Care Team Providers + +------+ + | Care Entry Level Sales Representative Name | Role | Phone | [...] as of this encounter Progress Notes Interface, Potato Chip Maker In - 11/23/2005 2:04 AM PST [id number] [facility] Date: 11/07/2005 Clinic: Orthopaedics Shelby Galdamez is a 46-year-old woman seen for evaluation of pain in the right hip and back. She provides a history that she was operated on in [address] Garcia at [facility] for osteoarthritis. She apparently had a cheilectomy [...] given a request to take home to [place] to see if she can get into [...] could formulate some plans. Her phone is #[phone]. Gino Baker M.D. KEE / SALEEM [id number] / [id number] / [id number] / [id number] cc: Quintin Acevedo [facility] [address] [place] [address] Electronically signed by Gino Baker 11-22-2005 02:58:59 PM documented i n this encounter Plan of Treatment Not on filedocumented as of this encounter Visit Diagnoses Not on filedocumented in this encounter"
--- OUTSIDE RECORDS SUMMARY | ~2020-03-28 | XMS | Encounter Summary ---
Demographics + + + | Address | [address] | | | [place] [address] | + + + | Home Phone [...] + +------+ + | Care Sales And Marketing Manager Name | Role | Phone | + +------+ + PCP | Unavailable | + +------+ + Encounter Details +--------+ + + + + | Date | Type | Department | Care Team | Description | +--------+ + + + + | 05/13/ | Office | [facility] | Note, [...] as of this encounter Progress Notes Interface, Civil Project Engineer In - 07/14/2006 1:10 AM PDTCLINIC DATE: 05/13/2001 ORTHOPEDIC CLINIC HISTORY: The patient is a 41-year-old obese female following for right hip degenerative joint disease and low back pain secondary to spondylosis. She also has a history of right knee degenerative joint disease and is status post 2 arthroscopic debridements 2 and 3 years ago elsewhere which she felt helped with her pain. She returns to the clinic approximately 6 weeks early because she has had 1 month increase in her right lower extremity and to a lesser extent upper extremity pain. She describes the pain as beginning in the mid low back and radiating down to the right toe. It is a pressure pain when it is in the anterior thigh and pins and needles throughout the knee that is accompanied by muscle spasms. It does radiate to the groin. She has been trying to do increased housework and this has tended to increase her pain, and she tends to fall once or twice a month primarily because of pain-related muscle give way. She has no true locking or mechanical symptoms in the knee, although she does have some catching that she reports. Her physical therapy observation is pending. She continues to do her home exercise program with right Thera-Band. Because of her pain, she has stopped doing sit ups. REVIEW OF SYSTEMS: She reports an increase in her episodic fecal incontinence which is related to urgency and has been present since her gallbladder excision in the 1980s. Occasionally, she will have no pain all day and then in the evening, she will have severe episodes of pain which have forced her to become entirely sedentary. Her pain becomes much worse when she lies supine on her right side and is improved with lying prone on the left side. She finds that flexing her knees and placing a pillow under them or between them is also helpful. She is able to ambulate only 1 block and uses a cane in the left hand essentially all the time now whereas previously she was able to ambulate to and from the bathroom without the cane. PHYSICAL EXAMINATION: GENERAL: She ambulates with a moderate right antalgic gait. She uses a cane in the left hand which improves her gait. VITAL SIGNS: She reports her weight is 240 pounds and height is 5 feet 4 inches. EXTREMITIES: She is able to stand on the right and left lower extremity and keep the pelvis level, although on the right side, she fatigues easily and fades into a Trendelenburg position, although she denies specific groin pain. She does have back pain. She is able to heel and toe rise. She forward flexes to reach her fingertips to the knee level but requires bending of her knee. She has no rear pump. BACK: She is nontender in the thoracic and upper lumbar spine. She is tender diffusely in the mid low back in the lumbosacral junction region. She is diffusely tender over the right buttock and nonspecifically over the sciatic nerve or greater trochanter. NEUROLOGIC: Muscle strength is 5/5 in the bilateral deltoid, biceps, triceps, wrist extensors, flexors, finger flexors, extensors, and abductors, left hip flexors, quadriceps, and hamstrings, and bilateral ankle dorsiflexors, plantar flexors, EHL, FHL, and left ankle evertors. She has 4+/5 strength which appears to be inhibited by pain in the right hip flexors, quadriceps, hamstrings, and ankle evertors. Sensation is intact to light touch and subjectively diminished in the entire right upper extremity and in the lateral aspect of the right lower extremity including thigh, knee, leg, ankle, and foot. She also has subjectively decreased sensation on the plantar surface of the right foot compared to the left foot. Deep tendon reflexes are 2+ and symmetric biceps, triceps, brachioradialis, knee jerks; 1+ and symmetric ankle jerks, and downgoing toes and Babinski with no clonus or Mojica's sign. Knee range of motion is 0 to 135 degrees bilaterally. She is stable to varus, valgus, and anteroposterior drawer test as well as Erika in both knees. There is no specific effusion and no significant patellofemoral crepitance. She is diffusely tender in the right knee, medial slightly greater than lateral and nontender in the left knee with valgus stress. She has increased right knee pain, but she is not specifically tender at the medial or lateral joint line. Dominic's maneuver is asymptomatic. There is no palpable click at the joint lines. Hip range of motion is 0 to 120 degrees on the left with 60 degrees of external rotation, 30 degrees of internal rotation, 60 degrees of abduction, and 30 degrees of adduction which is not painful. On the right side, she has 0 to 110 degrees of flexion with 30 degrees of external rotation and 20 degrees of internal rotation and pain to the extreme of rotation which nearly sends her off the bed. Straight leg raising is negative bilaterally for pain below the knee. DIAGNOSTIC STUDIES: X-rays show moderate to severe right hip degenerative joint disease with a large collar of marginal osteophytes on the femoral head, medial greater than superior joint space narrowing and acetabular cyst formation as well as subchondral sclerosis. The right knee has very mild early degenerative joint disease radiographically with a marginal osteophyte over the medial femoral condyle and slight squaring of the medial femoral condyle. There are no radiopaque loose bodies. The patellar track is well in the femoral trochlea. Limited regions of the lumbosacral spine seen on the AP pelvis do confirm degenerative changes. ASSESSMENT 1. Severe right hip degenerative joint disease. 2. Mild right knee degenerative joint disease. 3. Low back pain with question of radiculopathy secondary to spondylosis. DISPOSITION: It is difficult to determine exactly what the primary source of her pain is. I suspect that it is primarily from the right hip. We will send her for a diagnostic and hopefully therapeutic right hip arthrogram with Rocio as soon as possible. She will keep a log of her symptoms and keep her return to clinic appointment on June 23, 2001. If her symptoms are significantly improved with the injection, but the pain release does not last, I believe that she has reached the point where she would benefit from operative intervention which might range from cheilectomy to total hip arthroplasty. If on the other hand, she does not have significant pain release, then I believe that a referral to a spine physician for further evaluation of her spondylosis to consider if operative intervention maybe helpful. I am certain that a good percentage of her low back and knee pain would improve if we could improve her hip pain. Lloyd Garcia M.D. Automobile Repossessor, Orthopedics and Rehabilitation / [id number] / [id number] / [id number] / [id number] cc: Helio Xie M.D. [place], [place] [id number] signed by Interface, Civil Project Engineer In at 07/14/2006 1:1 0 AM PDTdocumented in this encounter Plan of Treatment Not on filedocumented as of this encounter Visit Diagnoses Not on filedocumented in this encounter"
--- OUTSIDE RECORDS SUMMARY | ~2020-03-28 | XMS | Encounter Summary ---
Demographics + + + | Address | [address] | | | [place] [address] | + + + | Home Phone [...] Team Providers + +------+ + | Care Urgent Care Nurse Practitioner Name | Role | Phone | [...] | | | | | osteoarthrit | [address] | [address] | | | | | is of left | [address] | Yasmany Gil | | | | | hip | [address] | Mailcode: | | | | | Procedures | [place], [place] | [facility] for | | | | | CONSULT TO | [address] | Health and | | | | | BARIATRIC | Phone: | Healing, | | | | | SURGERY | [phone] | [address] | | | | | | Fax: | [place], [place] | | | | | | [phone] | [address] | | | | | | | Phone: | | | | | | | | | | | | | | Fax: | | | | | | | [phone] | +--------+--------+ + + + + Reason [...] | | | | | | Jamie [place], | | | | | | | [place] | | | | | | | [address] | | | | | | | Phone: | | | | | | | [phone] | | | | | | | Fax: | | | | | | | [phone] | +--------+--------+ + + + + Encounter [...] | | Healing [address] | [place], [place] | Dx); Left hip pain; | | | | Ave Mailcode: | [address] | Smoking; Chronic | | | | [facility] [place] for | [phone] | obstructive | | | | Health and Healing, | | pulmonary disease, | | | | Building [address] | | unspecified COPD | | | | Floor [place], [place] | | type ([facility]); Class 3 | | | | [address] | | severe obesity with | | | | [phone] | | body mass index | | | | | | (BMI) of 40.0 to | | | | | | 44.9 in adult, | | | | | | unspecified obesity | | | | | | type, unspecified | | | | | | whether serious | | | | | | comorbidity present | | | | | | ([facility]) | +--------+---------+ + + + Social History [...] might be different fro m the original. [facility] DEPARTMENT OF ORTHOPAEDICS & REHABILITATION Adult [...] W-FE,OTHER MIN (CENTRUM ORAL), Take by mouth. Hatley-3 Fatty Acids-Vitamin E (FISH OIL) 1,000 mg [...] The patient was offered a referral to [facility], for non-surgical and potentially surgical o [...]
--- OUTSIDE RECORDS SUMMARY | ~2020-03-28 | XMS | Encounter Summary ---
Demographics + + + | Address | [address] | | | [place] [address] | + + + | Home Phone [...] Providers + +------+ + | Care Stem Processing Machine Operator Name | Role | [...] | | [address] | [address] [place], | | | | | Mailcode: PV430 | [place] [address] | | | | | [facility] | | | | | | [place] | | | | | | [address] | | | | | | [phone] | | | +--------+ + + + [...]
--- OUTSIDE RECORDS SUMMARY | ~2020-03-28 | XMS | Encounter Summary ---
Demographics + + + | Address | [address] | | | [place] [address] | + + + | Home Phone [...] Team Providers + +------+ + | Care Woodworking Belt Sander Name | Role | Phone | + [...] | | | [address] | [address] [place], [place] | | | | | Mailcode: [id number] | [address] | | | | | [facility] | | | | | | [place], [place] | | | | | | [address] | | | | | | [phone] | | | +--------+ + + + [...]
--- OUTSIDE RECORDS SUMMARY | ~2020-03-28 | XMS | Encounter Summary ---
Demographics + + + | Address | [address] | | | [place] [address] | + + + | Home Phone [...] Team Providers + +------+ + | Care Wastewater Treatment Plant Attendant Name | Role | Phone | [...] | Head and Neck | MEGAN Reddy [address] [facility] | | | | | Surgery Services at | [facility] | | | | | [address] | [place], [place] | | | | | [address] | [address] | | | | | Physician's | [phone] | | | | | Pavilion, [facility] floor | | | | | | [place], [place] | | | | | | [address] | | | | | | [phone] | | | +--------+ + + + [...]
--- OUTSIDE RECORDS SUMMARY | ~2020-03-28 | XMS | Encounter Summary ---
Demographics + + + | Address | [address] | | | [place] [address] | + + + | Home Phone [...] Team Providers + +------+ + | Care Gut Puller Name | Role | Phone | + +------+ + PCP | Unavailable | + +------+ + Encounter Details +--------+ + + + + | Date | Type | Department | Care Team | Description | +--------+ + + + + | 04/09/ | Office | [facility] | Note, [...] as of this encounter Progress Notes Interface, Railway Yard Assistant In - 07/18/2006 3:04 AM PDTCLINIC DATE: 04/09/2001 ORTHOPEDIC CLINIC The patient contacted the clinic today via telephone stating that she has had increased right groin, buttock, and thigh pain. She is a patient of Dr. Garcia and is currently taking Indocin 50 mg t.i.d., and cyclobenzaprine 10 mg. Her next return to clinic appointment is in May 2001. This was reviewed with Dr. Garcia, and we will have the patient return to clinic at the next available appointment to discuss further treatment options. Brigette Lim P.A.-C / [id number] / [id number] / [id number] / Tdocumented in this encounter Plan of Treatment Not on filedocumented as of this encounter Visit Diagnoses Not on filedocumented in this encounter"
--- OUTSIDE RECORDS SUMMARY | ~2020-03-28 | XMS | Encounter Summary ---
Demographics + + + | Address | [address] | | | [place] [address] | + + + | Home Phone [...] Team Providers + +------+ + | Care Keyliner Name | Role | Phone | + [...] 09/05/ | Telephone | Orthopaedics at | Kaylan Arias MD | Radiographic imaging | | 2008 | | [address] | [address] | procedure | | | | [address] | [address] | | | | | Mailcode: [id number] | [place], [place] | | | | | [facility] | [address] | | | | | [place], [place] | [phone] | | | | | [address] | | | | | | [phone] | | | +--------+ + + + [...]
--- OUTSIDE RECORDS SUMMARY | ~2020-03-28 | XMS | Encounter Summary ---
Demographics + + + | Address | [address] | | | [place] [address] | + + + | Home Phone [...] Team Providers + +------+ + | Care Bloom Conveyor Operator Name | Role | Phone | [...] as of this encounter Progress Notes Interface, Pruner In - 08/28/2006 3:05 AM PSTCLINIC DATE: [...] to Dr. Gant. Benson Cooper M.D. / [id number] / [id number] / [id number] / [id number] C: 11/27/1999 kavita cc: Helio Noland M.D. [facility] [address] Lloyd Garcia M.D. Department of Orthopedics documented in this encounter Plan of Treatment Not on filedocumented as of this encounter Visit Diagnoses Not on filedocumented in this encounter"
--- OUTSIDE RECORDS SUMMARY | ~2020-03-28 | XMS | Encounter Summary ---
Demographics + + + | Address | [address] | | | [place] [address] | + + + | Home Phone [...] Team Providers + +------+ + | Care Mucker Operator Name | Role | Phone | + +------+ + | Travis Mcginnis MD | PCP | | + +------+ + Encounter Details +--------+ + + + + | Date | Type | Department | Care Team | Description | +--------+ + + + + | 11/09/ | Documentati | Vascular Access at | Lis Banuelos | | | 2010 | on | [facility] [address] | HERMINIO Swain [address] | | | | | [address] | [address] | | | | | [facility] | Rd [place], [place] | | | | | [place], [place] | [address] | | | | | [address] | | | | | | [phone] | | | +--------+ + + + [...]
--- OUTSIDE RECORDS SUMMARY | ~2020-03-28 | XMS | Encounter Summary ---
Demographics + + + | Address | [address] | | | [place] [address] | + + + | Home Phone [...] Providers + +------+ + | Care Motor Overhauler Name | Role | Phone | + [...] | | | | | (sacroiliac) | [facility], | | | | | joint | Rd | 10th Floor | | | | | inflammation | [place], [place] | [place], [place] | | | | | ([facility]) | [address] | [address] | | | | | Procedures | | Phone: | | | | | CT INJ | | [phone] | | | | | SACROILIAC | | Fax: | | | | | JOINT | | [phone] | | | | | W/NEEDLE | | | | | | | PLCMT | | | +--------+--------+ + + + + Encounter Details +--------+ + + + + | Date | Type | Department | Care Team | Description | +--------+ + + + + | 03/22/ | Hospital | Diagnostic Imaging | | | | 2009 | Encounter | Services at [facility] | | | | | | [address] | | | | | | [address] | | | | | | [address] | | | | | | [place], [place] | | | | | | [address] | | | | | | [phone] | | | +--------+ + + + [...] | + + + +---------+--------+ + | CALCIUM | Take by mouth. | | 0 | | | | CARBONATE/VITAMIN D3 | | | | | | | (CALCIUM 600 + D | | | | | | | ORAL) | | | | | | + + + +---------+--------+ + | | Take 1 Tab by [...] | + + + +---------+--------+ + | MULTIVITS | Take by mouth. | | 0 | | | | W-FE,OTHER MIN | | | | | | | (CENTRUM ORAL) | | | | | | + + + +---------+--------+ + | Rex-3 Fatty | Take by mouth. | | [...] + +--------+ + + + | CT INJ SACROILIAC | Routin | 03/22/2010 | Back pain Hip | Results for this | | JOINT AND NEEDLE | e | 9:18 AM | pain SI | procedure are in the | | PLCMT | | PDT | (sacroiliac) joint | results section. | | | | | inflammation (HCC) | | + +--------+ + + + documented in this encounter Results CT INJ SACROILIAC JOINT [...] None. | | | | | | Reagent Tender: Dr. Moss, | | | | | | residential living assistant. | | | | | | Sand Sifter: | | | | | | Sue, staff | | | | | | [...] the | | | | | | postal support employee. Blood Tester | | | | | | imaging [...] MOSS, | | | | | | MAshantiReviewer: KIM | | | | | | [...]
--- OUTSIDE RECORDS SUMMARY | ~2020-03-28 | XMS | Encounter Summary ---
Demographics + + + | Address | [address] | | | [place] [address] | + + + | Home Phone [...] Team Providers + +------+ + | Care Wire Fence Builder Name | Role | Phone | + [...] | | | is of hip | [facility] | [address] | | | | | Procedures | Rd | [address] [place], | | | | | CONSULT TO | [place], [place] | [place] [address] | | | | | ORTHOPEDICS | [address] | | | | | | AND [...] | | | | | UMATILMARIJA | [address] [facility] | | | | | | MEDICAL | [facility] | | | | | | CLINIC [address] | [address] | | | | | | [address] | [place] | | | | | | [place], [place] | [address] | | | | | | [address] | | +--------+--------+ + + + + [...] Pavilion | | | | | | [place], [place] | | | | | | [address] | | | | | | [phone] | | | +--------+---------+ + + + [...] 05/23/2004, for hip pain who returns to [facility] after a right hip injection arthrogram on [...] states, that he recieves a letter from [facility] indicating the continued need. She [...]
--- OUTSIDE RECORDS SUMMARY | ~2020-03-28 | XMS | Encounter Summary ---
Demographics + + + | Address | [address] | | | [place] [address] | + + + | Home Phone [...] Providers + +------+ + | Care Senior Sales Executive Name | Role | Phone | + [...] Pavilion | | | | | | [place], [place] | | | | | | [address] | | | | | | [phone] | | | +--------+ + + + [...] | + + + + + | [facility] | [address] | [place] [address] | | | LABORATORY | | | [...] | + + + + + | [facility] DEPARTMENT OF | [address] [facility] | [place] [address] | | | PATHOLOGY | [address] | | | + + + + + | [facility] DEPARTMENT OF | [address] [facility] | [place] [address] | | | PATHOLOGY | [address] [...] | + + + + + | [facility] | [address] | [place] [address] | | | PATHOLOGY | [address] | | | + + + + + | [facility] | [facility] [address] | [place] [address] | | | PATHOLOGY | [address] [...] OF | [address] | [place] [address] | | | PATHOLOGY | [address] | | | + + + + + | [facility] | [address] | [place] [address] | | | PATHOLOGY | [address] [...] Marybeth, | | | | | | Mixologist, | | | | | | attime [...] | + + + + + | [facility] | [address] | [place] [address] | | | LABORATORY | | | [...] | + + + + + | [facility] DEPARTMENT OF | [address] | [place] [address] | | | PATHOLOGY | [address] | | | + + + + + | [facility] DEPARTMENT OF | [address] | [place] [address] | | | PATHOLOGY | [address] [...] | + + + + + | [facility] DEPARTMENT OF | [address] [facility] | [place] [address] | | | PATHOLOGY | [address] | | | + + + + + | [facility] DEPARTMENT OF | [address] [facility] | [place] [address] | | | PATHOLOGY | [address] [...] | + + + + + | [facility] DEPARTMENT OF | [address] [facility] | [place] [address] | | | PATHOLOGY | [address] | | | + + + + + | [facility] DEPARTMENT OF | [address] [facility] | [place] [address] | | | PATHOLOGY | [address] [...] | + + + + + | [facility] | [address] | [place] [address] | | | LABORATORY | | | [...] + + | [facility] | [address] | [place] [address] | | | PATHOLOGY | [address] | | | + + + + + | [facility] | [address] [address] | [place] [address] | | | PATHOLOGY | [address] [...] | + + + + + | [facility] DEPARTMENT OF | [address] | [place] [address] | | | PATHOLOGY | [address] | | | + + + + + | [facility] DEPARTMENT OF | [address] | [place] [address] | | | PATHOLOGY | [address] [...] + + | [facility] | [address] [facility] | [place] [address] | | | PATHOLOGY | [address] | | | + + + + + | [facility] DEPARTMENT OF | [facility] | [place] [address] | | | PATHOLOGY | [address] [...] + + + | [facility] | [address] | [place] [address] | | | LABORATORY | | | [...] + + | [facility] | [address] [facility] | [place] [address] | | | PATHOLOGY | [address] | | | + + + + + | [facility] DEPARTMENT OF | [address] [facility] | [place] [address] | | | PATHOLOGY | [address] [...] + + | [facility] DEPARTMENT OF | [address] | [place] [address] | | | PATHOLOGY | [address] | | | + + + + + | [facility] | [address] | [place] [address] | | | PATHOLOGY | [address] [...] PRIMARY | | | | | | COSTUME CUTTER: Joao Wilde | | | | | [...] | | | | | aspirated. A12 Wolof | | | | | | multi [...] | | + +---------+ + + | [facility] DEPARTMENT OF | | | | [...] | | + +---------+ + + | [facility] DEPARTMENT OF | | | | [...] + + + | [facility] | [address] | [place] [address] | | | LABORATORY | | | [...] | + + + + + | [facility] DEPARTMENT OF | [address] | [place] [address] | | | PATHOLOGY | [address] | | | + + + + + | [facility] DEPARTMENT OF | [address] | [place] [address] | | | PATHOLOGY | [address] [...] (L) | 7.4 - 10.4 fL | [facility] | | | | | | DEPARTMENT [...] | + + + + + | [facility] DEPARTMENT OF | [address] [facility] | [place] [address] | | | PATHOLOGY | [address] | | | + + + + + | [facility] DEPARTMENT OF | [address] [facility] | [place] [address] | | | PATHOLOGY | [address] [...] | + + + + + | [facility] DEPARTMENT OF | [address] | [place] [address] | | | PATHOLOGY | [address] | | | + + + + + | [facility] DEPARTMENT OF | [address] | [place] [address] | | | PATHOLOGY | [address] [...] + + | [facility] | [facility] | [place] [address] | | | PATHOLOGY | [address] | | | + + + + + | [facility] DEPARTMENT OF | [address] [facility] | [place] [address] | | | PATHOLOGY | [address] [...] | | + +---------+ + + | [facility] DEPARTMENT OF | | | | [...] + + | [facility] | [address] [facility] | [place] [address] | | | PATHOLOGY | [address] | | | + + + + + | [facility] | [address] [facility] | [place] [address] | | | PATHOLOGY | [address] [...] OF | [address] | [place] [address] | | | PATHOLOGY | [address] | | | + + + + + | [facility] DEPARTMENT OF | [address] | [place] [address] | | | PATHOLOGY | [address] [...] | + + + + + | [facility] | [address] | [place] [address] | | | PATHOLOGY | [address] | | | + + + + + | [facility] | [address] | [place] [address] | | | PATHOLOGY | [address] [...] + + + | [facility] | [address] | [place] [address] | | | LABORATORY | | | | + + + + + documented in this encounter Visit Diagnoses Not on filedocumented in this encounter"
--- OUTSIDE RECORDS SUMMARY | ~2020-03-28 | XMS | Encounter Summary ---
Demographics + + + | Address | [address] | | | [place] [address] | + + + | Home Phone | | + + + | Preferred Language | Unknown | + + + | Marital Status | Single | + + + | Judaism Affiliation | PRE | + + + [...] Team Providers + +------+ + | Care Mask Former Name | Role | Phone | + [...] | | | | Mailcode: PV430 | [place], [place] | not done yet | | | | [facility] | [address] | 07-18.) | | | | [place], [place] | [phone] | | | | | [address] | | | | | | [phone] | | | +--------+ + + + [...]
--- OUTSIDE RECORDS SUMMARY | ~2020-03-28 | XMS | Encounter Summary ---
Demographics + + + | Address | [address] | | | [place] [address] | + + + | Home Phone [...] +------+ + | Care Health And Safety Instructor Name | Role | Phone | [...] as of this encounter Progress Notes Interface, Well Flow Operator In - 06/23/2006 1:07 AM PDTCLINIC DATE: [...] Ken Mejia M.D. Lloyd Garcia M.D. / [id number] / [id number] / [id number] / Tdocumented in this encounter Plan of Treatment Not on filedocumented as of this encounter Visit Diagnoses Not on filedocumented in this encounter"
--- OUTSIDE RECORDS SUMMARY | ~2020-03-28 | XMS | Encounter Summary ---
Demographics + + + | Address | [address] | | | [place] [address] | + + + | Home Phone [...] Author | [facility] | + + + | Organization | [facility] | + + + | Address | Unknown | + + + | Phone | Unavailable | + + + Support + + + + + | Name | Relationship | Address | Phone | + + + + + | Casandra Smith | ROBERTO | [place] | | + + + + + Care Team Providers + +------+ + | Care Insulator Tester Name | Role | Phone | [...] | | | unspecified | | Rd [place], | | | | | whether | | [place] | | | | | generalized | | [address] | | | | | or | | Phone: | | | | | localized, | | [phone] | | | | | pelvic | | Fax: | | | | | region and | | [phone] | | | | | thigh Pain [...] | | | | Mailcode: PV430 | [place], [place] | internal joint | | | | [facility] | [address] | prosthesis (HCC) | | | | [place], [place] | [phone] | (Primary Dx) | | | | [address] | | | | | | [phone] | | | +--------+---------+ + + + [...] has been indic ated for [facility] in [place], but they want the ok from [place]. [...] prn f/u here as she lives near [place]. d ocumented in this encounter Plan of [...]
--- OUTSIDE RECORDS SUMMARY | ~2020-03-28 | XMS | Encounter Summary ---
Demographics + + + | Address | [address] | | | [place] [address] | + + + | Home Phone [...] Team Providers + +------+ + | Care Timing Inspector Name | Role | Phone | [...] | | | | due to | [place], [place] | [place], | | | | | internal | [address] | [place] [address] | | | | | joint | Phone: | Phone: | | | | | prosthesis | [phone] | [phone] | | | | | ([facility]) | Fax: | Fax: | | | | | | [phone] | [phone] | +--------+--------+ + + + + Encounter [...] | | | | Loop [facility] | [place], [place] | internal joint | | | | [address], 3rd floor | [address] | prosthesis (HCC) | | | | [place], [place] | [phone] | (Primary Dx) | | | | [address] | | | | | | [phone] | | | +--------+---------+ + + + [...] DISEASES CLINIC FOLLOW UP Primary Care Physician: [address] [place] [id number] Ms. Galdamez presents to Infectious Diseases Clinic [...] 18, a nd was therefore admitted to [facility] out of concern for R hip infection. [...] discharged in stable condition on 10/22/[address] [facility] with OPAT & Orthopedic follow-up planned in 2 weeks ti mn. In OPAT follow-up on 11/09/2010 Ms. Galdamez [...] W-FE,OTHER MIN (CENTRUM ORAL) Take by mouth. Coral-3 Fatty Acids-Vitamin E (FISH OIL) 1,000 mg [...] follow up in Infectious Diseases Clinic in [place]. We are hap py to be consulted again should infectious complications arise. I spent a total of 20 minutes face to face with the patient and over 50% was time spent in counseling in which we discussed infection, antibiotics, duration of therapy, lab results, a nd follow-up planning. Carolina Putnam PA-C [facility] Department of Infectious Disease Outpatient IV Antibiotic Therapy Clinic (OPAT) Pager ID: [phone] [facility]. 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
--- OUTSIDE RECORDS SUMMARY | ~2020-03-28 | XMS | Encounter Summary ---
Demographics + + + | Address | [address] | | | [place] [address] | + + + | Home Phone [...] Team Providers + +------+ + | Care Instructional Design Consultant Name | Role | Phone | [...] as of this encounter Progress Notes Interface, Electron Gun Assembler In - 11/23/2005 2:04 AM PST [id number] [facility] Date: 11/07/2005 Clinic: Orthopaedics Shelby Galdamez is a 46-year-old woman seen for evaluation of pain in the right hip and back. She provides a history that she was operated on in [address] Garcia at [facility] for osteoarthritis. She apparently had a cheilectomy [...] given a request to take home to [place] to see if she can get into [...] could formulate some plans. Her phone is #[phone]. Gino Baker M.D. KEE / SALEEM [id number] / [id number] / [id number] / [id number] cc: Quintin Acevedo [facility] [address] [place] [address] Electronically signed by Gino Baker 11-22-2005 02:58:59 PM documented i n this encounter Plan of Treatment Not on filedocumented as of this encounter Visit Diagnoses Not on filedocumented in this encounter"
--- OUTSIDE RECORDS SUMMARY | ~2020-03-28 | XMS | Encounter Summary ---
Demographics + + + | Address | [address] | | | [place] [address] | + + + | Home Phone [...] + +------+ + | Care Printed Circuit Boards Beveler Name | Role | Phone | + [...] | | | unspecified | | Rd [place], | | | | | whether | | [place] | | | | | generalized | | [address] | | | | | or | | Phone: | | | | | localized, | | [phone] | | | | | pelvic | | Fax: | | | | | region and | | [phone] | | | | | thigh Pain [...] | | | | Mailcode: PV430 | [place], [place] | inflammatory | | | | [facility] | [address] | reaction due to | | | | [place], [place] | [phone] | internal joint | | | | [address] | | prosthesis ([facility]); | | | | [phone] | | EE-NO SHOW | +--------+---------+ + [...]
--- OUTSIDE RECORDS SUMMARY | ~2020-03-28 | XMS | Encounter Summary ---
Demographics + + + | Address | [address] | | | [place] [address] | + + + | Home Phone [...] Team Providers + +------+ + | Care Labor Relations Specialist Name | Role | Phone [...] of this encounter Progress Notes Interface, Lead Shipper In - 08/22/2006 5:13 AM PSTCLINIC DATE: [...] Valium. PHYSICAL EXAMINATION: She ambulates with a allcbcwn-ju-ummbzu leg coxalgic gait leaning over the right [...] that they are appropriate. Lloyd Garcia MD Supervisor Ride Assembly Department of Orthopaedics / [id number] / [id number] / [id number] / [id number] C: 01/19/2000 jerman cc: Helio Noland MD [place], [place] [id number] [place] [id number] signed by Interface, Lead Shipper In at 08/22/2006 5:13 AM PSTdocumented in this encounter Plan of Treatment Not on filedocumented as of this encounter Visit Diagnoses Not on filedocumented in this encounter"
--- OUTSIDE RECORDS SUMMARY | ~2020-03-28 | XMS | Encounter Summary ---
Demographics + + + | Address | [address] | | | [place] [address] | + + + | Home Phone [...] Team Providers + +------+ + | Care Operations And Intelligence Assistant Name | Role | Phone | + +------+ + | Marta Jenkins [place] | PCP | | + +------+ + [...] | Jamie Mailcode: [address] [place], | | | | | [place], [place] | [place] [address] | | | | | [address] | | | | | | [phone] | | | +--------+ + + + [...]
--- OUTSIDE RECORDS SUMMARY | ~2020-03-28 | XMS | Encounter Summary ---
Demographics + + + | Address | [address] | | | [place] [address] | + + + | Home Phone [...] Team Providers + +------+ + | Care Front Desk Monitor Name | Role | Phone | + [...] | [facility] | MEGAN Reddy [address] | | | | | [address] | [address] | | | | | Loop [facility] | [place], [place] | | | | | [address], 3rd floor | [address] | | | | | [place], [place] | [phone] | | | | | [address] | | | | | | [phone] | | | +--------+ + + + [...]
--- OUTSIDE RECORDS SUMMARY | ~2020-03-28 | XMS | Encounter Summary ---
Demographics + + + | Address | [address] | | | [place] [...] Providers + +------+ + | Care Aircraft Engine Specialist Name | Role | Phone | [...] | | | | Mailcode: PV430 | [facility] [place] | | | | | [facility] | [address] | | | | | [place], [place] | [phone] | | | | | [address] | | | | | | [phone] | | | +--------+ + + + [...]
--- OUTSIDE RECORDS SUMMARY | ~2020-03-28 | XMS | Encounter Summary ---
Demographics + + + | Address | [address] | | | [place] [address] | + + + | Home Phone [...] Team Providers + +------+ + | Care Stock Associate Name | Role | Phone | [...] | | | unspecified | | Rd [place], | | | | | whether | | [place] | | | | | generalized | | [address] | | | | | or | | Phone: | | | | | localized, | | [phone] | | | | | pelvic | | Fax: | | | | | region and | | [phone] | | | | | thigh | [...] SW | [address] | (Primary Dx); Hip | | | | [address] | [address] | Pain | | | | Mailcode: PV430 | [place], [place] | | | | | [facility] | [address] | | | | | [place], [place] | [phone] | | | | | [address] | | | | | | [phone] | | | +--------+---------+ + + + [...]
--- OUTSIDE RECORDS SUMMARY | ~2020-03-28 | XMS | Encounter Summary ---
Demographics + + + | Address | [address] | | | [place] [address] | + + + | Home Phone [...] Team Providers + +------+ + | Care Folder Hand Name | Role | Phone | + +------+ + | Marta Jenkins WINDOW MAKER | PCP | | + +------+ + [...] | Jamie Mailcode: [address] [place], | | | | | [place], [place] | [place] [address] | | | | | [address] | | | | | | [phone] | | | +--------+ + + + [...]
--- OUTSIDE RECORDS SUMMARY | ~2020-03-28 | XMS | Encounter Summary ---
Demographics + + + | Address | [address] | | | [place] [address] | + + + | Home Phone [...] Team Providers + +------+ + | Care Screw Machine Hand Name | Role | Phone | [...] | | | | Mailcode: PV430 | [place], [place] | | | | | [facility] | [address] | | | | | [place], [place] | [phone] | | | | | [address] | | | | | | [phone] | | | +--------+ + + + [...]
--- OUTSIDE RECORDS SUMMARY | ~2020-03-28 | XMS | Encounter Summary ---
Demographics + + + | Address | [address] | | | [place] [address] | + + + | Home Phone [...] Providers + +------+ + | Care Dental Assistant Instructor Name | Role | Phone | [...] | | | | Mailcode: PV430 | [facility] [place] | | | | | [facility] | [address] | | | | | [place], [place] | [phone] | | | | | [address] | | | | | | [phone] | | | +--------+ + + + [...]
--- OUTSIDE RECORDS SUMMARY | ~2020-03-28 | XMS | Encounter Summary ---
Demographics + + + | Address | [address] | | | [place] [address] | + + + | Home Phone [...] Team Providers + +------+ + | Care Mutuel Clerk Name | Role | Phone | [...] | [facility] | MEGAN Red[address] | | | | | [address] | [address] | | | | | Loop [facility] | [place], [place] | | | | | [place], 3rd floor | [address] | | | | | [place], [place] | [phone] | | | | | [address] | | | | | | [phone] | | | +--------+ + + + [...] CELL | 8.6 | K/cu mm | [facility] | | | COUNT | | | MEDICAL | | | | | | [facility] - | | | | | | [place] | | + + + + + + | RED CELL | 3.88 | M/cu mm | [facility] | | | COUNT | | | MEDICAL | | | | | | [facility] - | | | | | | [place] | | + + + + + + | HEMOGLOBIN | 11.5 (A) | 12.1999 - 15 | [facility] | | | | | g/dL | MEDICAL | | | | | | CENTER - | | | | | | [place] | | + + + + + + | HEMATOCRIT | 33.7 | % | [facility] | | | | | | MEDICAL | | | | | | [facility] - | | | | | | [place] | | + + + + + + | MCV | 87 | fL | [facility] | | | | | | MEDICAL | | | | | | [facility] - | | | | | | [place] | | + + + + + + | MCH | 29.7 | pg | [facility] | | | | | | MEDICAL | | | | | | [facility] - | | | | | | [place] | | + + + + + + | MCHC | 34.1 | g/dL | [facility] | | | | | | MEDICAL | | | | | | [facility] - | | | | | | [place] | | + + + + + + | PLATELET | 369 | K/cu mm | [facility] | | | COUNT | | | MEDICAL | | | | | | [facility]ENTER - | | | | | | [place] | | + + + + + + | NEUTROPHIL | 66.6 | % | [facility] | | | % | | | MEDICAL | | | | | | [facility] - | | | | | | [place] | | + + + + + + | LYMPHOCYTE | 23.2 | % | [facility] | | | % | | | MEDICAL | | | | | | [facility] - | | | | | | [place] | | + + + + + + | MONOCYTE % | 6.6 | % | [facility] | | | | | | MEDICAL | | | | | | [facility]ENTER - | | | | | | [place] | | + + + + + + | EOS % | 3.1 | % | [facility] | | | | | | MEDICAL | | | | | | [facility] - | | | | | | [place] | | + + + + + + | BASO % | 0.5 | % | [facility] | | | | | | MEDICAL | | | | | | [facility]ENTER - | | | | | | [place] | | + + + + + + | RDW | 16.7 | % | [facility] | | | | | | MEDICAL | | | | | | [facility]ENTER - | | | | | | [place] | | + + + + + + | MPV | | fL | [facility] | | | | | | MEDICAL | | | | | | [facility] - | | | | | | [place] | | + + + + + + | NEUTROPHIL | 5.7 | K/cu mm | [facility] | | | # | | | MEDICAL | | | | | | [facility] - | | | | | | [place] | | + + + + + + | LYMPHOCYTE | 2.0 | K/cu mm | [facility] | | | # | | | MEDICAL | | | | | | [facility] - | | | | | | [place] | | + + + + + + | MONOCYTE # | 0.6 | K/cu mm | [facility] | | | | | | MEDICAL | | | | | | [facility] - | | | | | | [place] | | + + + + + + | EOS # | 0.3 | K/cu mm | [facility] | | | | | | MEDICAL | | | | | | [facility] - | | | | | | [place] | | + + + + + + | BASO # | | | [facility] | | | | | | MEDICAL | | | | | | [facility]ENTER - | | | | | | [place] | | + + + + + + | SEDIMENTATI | 78 | mm/hr | [facility] | | | ON RATE | | [...] | + + + + + | [facility] | [address] | [place] [address] | | | [facility] | | | | + + + + + COMPLETE METABOLIC SET (NA,K,CL,CO2,BUN,CREAT,GLUC,CA,AST,ALT,BILI TOTAL,ALK PHOS,ALB,PROT TOTAL) (11/16/2010 9:41 AM PST) + +---------+ + + + | Component | Value | Ref Range | Performed | Pathologist | | | | | At | Signature | + +---------+ + + + | GLUCOSE, | 112 (A) | 65 - 110 mg/dL | [facility] | | | PLASMA | | | MEDICAL | | | (LAB) | | | CENTER - | | | | | | [place] | | + +---------+ + + + | BUN, PLASMA | 6 | mg/dL | [facility] | | | (LAB) | | | MEDICAL | | | | | | CENTER - | | | | | | [place] | | + +---------+ + + + | CREATININE | 0.4 | mg/dL | [facility] | | | PLASMA | | | MEDICAL | | | (LAB) | | | CENTER - | | | | | | [place] | | + +---------+ + + + | TOTAL | 7.1 | g/dL | [facility] | | | PROTEIN, | | | MEDICAL | | | PLASMA | | | CENTER - | | | (LAB) | | | [place] | | + +---------+ + + + | ALBUMIN, | 3.3 | g/dL | [facility] | | | PLASMA | | | MEDICAL | | | (LAB) | | | CENTER - | | | | | | [place] | | + +---------+ + + + | CALCIUM, | 8.6 | mg/dL | [facility] | | | PLASMA | | | MEDICAL | | | (LAB) | | | CENTER - | | | | | | [place] | | + +---------+ + + + | BILIRUBIN | 0.9 | Transcutaneous | [facility] | | | TOTAL | | Bilirubinometer | MEDICAL | | | | | | CENTER - | | | | | | [place] | | + +---------+ + + + | ALK PHOS | 60 | U/L | [facility] | | | | | | MEDICAL | | | | | | [facility] - | | | | | | [place] | | + +---------+ + + + | AST(SGOT) | 15 | U/L | [facility] | | | | | | MEDICAL | | | | | | [facility] - | | | | | | [place] | | + +---------+ + + + | SODIUM, | 139 | mmol/L | [facility] | | | PLAS[facility] | | | MEDICAL | | | (LAB) | | | CENTER - | | | | | | [place] | | + +---------+ + + + | POTASSIUM, | 4.1 | mmol/L | [facility] | | | [facility] | | | MEDICAL | | | (LAB) | | | [facility] - | | | | | | [place] | | + +---------+ + + + | CHLORIDE, | 107 | mmol/L | [facility] | | | [facility] | | | MEDICAL | | | (LAB) | | | CENTER - | | | | | | [place] | | + +---------+ + + + | TOTAL CO2, | 26 | mmol/L | [facility] | | | [facility] | | | MEDICAL | | | (LAB) | | | C[facility] - | | | | | | [place] | | + +---------+ + + + | ALT (SGPT) | 11 | U/L | [facility] | | | | | | [facility] | | | | | | [facility] - | | | | | | [place] | | + +---------+ + + + | ANION GAP | 10 | | [facility] | | | | | | [facility] | | | | | | [facility] - | | | | | | [place] | | + +---------+ + + + | OSMOLALITY, | 286 | | [facility] | | | CALCULATED | | | [...] | + + + + + | [facility] | [id number] | [place] [address] | | | [facility] | | | | + + + + + documented in this encounter Visit Diagnoses Not on filedocumented in this encounter"
--- OUTSIDE RECORDS SUMMARY | ~2020-03-28 | XMS | Encounter Summary ---
Demographics + + + | Address | [address] | | | [place] [address] | + + + | Home Phone [...] Team Providers + +------+ + | Care Knitting Machine Fixer Name | Role | Phone | + [...] [facility] | | | | | | [address] | | | | | | [address] | | | | | | [place], [address] | | | | | | [place], [place] | | | | | | [address] | | | | | | [phone] | | | +--------+ + + + [...]
--- OUTSIDE RECORDS SUMMARY | ~2020-03-28 | XMS | Encounter Summary ---
Demographics + + + | Address | [address] | | | [place] [address] | + + + | Home Phone [...] Providers + +------+ + | Care Budget Analyst Name | Role | Phone | + +------+ + PCP | Unavailable | + +------+ + Encounter Details +--------+ + + + + | Date | Type | Department | Care Team | Description | +--------+ + + + + | 11/27/ | Transcribed | | Dictation, Other | [...] as of this encounter Progress Notes Interface, Ticket Taker Ferryboat In - 06/11/2006 3:03 AM PDT [facility] [place] [address], [place] [address] FAX Department of Orthopaedics, [facility] [employer] [id number] November 27, 2001 Kalyan Wu M.D. [facility]-Orthopedics PV 430 RE: SHELBY GALDAMEZ MR #: [id number] DOS: 11/27/2001 Dear Nasir: Thank you for sending over Ms. Galdamez today for consultation regarding low back pain. Ms. Galdamez is a 41-year-old female with constant chronic 5/10 low back pain as well as superior right hip osteoarthritis and right hip and leg pain. She is not complaining of any numbness in the leg, does have some complaints of weakness secondary to pain. She apparently has been seen by new primary care doctor and has started on Arthrotec. She states that the hip pain has 85% improved. Her chief complaint today is her low back pain. She apparently had x-rays of the low back several years ago in [place], [place] which she described as showing deteriorating vertebrae at "T11-T12." She has not had any physical therapy for back. She does work out at a gym under the direction of physical therapy in [place]. She would like to start some exercises for her back. She is on disability because of her hip. She is , with 2 children and 2 grandchildren. She smokes, does not drink. Her past medical history includes right hip DJD, gastroesophageal reflux, x 2, knee surgery x 2, appendectomy, adenoidectomy, and cholecystectomy. She is not allergic to any medications. She takes an H2 keven as well as her Arthrotec. Review of systems check was completed and in the chart. Pertinent positives include arthritis. On physical examination today, the patient is alert, pleasant, and cooperative. She is overweight. She has intact sensation to light touch over the bilateral lower extremities. She has 5/5 strength for ankle dorsiflexion, ankle plantar flexion, ankle eversion, great toe extension, and knee extension bilaterally. Knee jerks and ankle jerks are present and symmetric. She does have what appears to be slight scoliosis. The spinous processes are nontender to palpation. Passive hip range of motion is nonpainful on the left. It does reproduce hip pain with internal rotation greater than external rotation on the right. Lumbosacral flexibility is approximately 50 degrees with flexion. ASSESSMENT 1. Severe right hip degenerative joint disease. 2. Chronic low back pain with slight scoliosis. RECOMMENDATIONS: At this point, the hip pain seems to be significantly improved with Arthrotec. We will continue to work up chronic low back pain with an MRI. This will be done in [place]. The patient will start physical therapy for her back exercises to continue on her independent home program. She will follow up in approximately 3 to 4 weeks with the MRI. Thank you for allowing me to participate in the care of this pleasant patient. Any questions regarding these recommendations, please do not hesitate to contact me. Sincerely yours, Vince Krishna M.D. [facility] / [id number] / [id number] / [id number] / [id number] cc: Lloyd Garcia M.D. Orthopedics PV 430 docume nted in this encounter Plan of Treatment Not on filedocumented as of this encounter Visit Diagnoses Not on filedocumented in this encounter
--- OUTSIDE RECORDS SUMMARY | ~2020-03-28 | XMS | Encounter Summary ---
Demographics + + + | Address | [address] | | | [place] [address] | + + + | Home Phone | | + + + | Preferred Language | Unknown | + + + | Marital Status | | + + + | Mosque Affiliation | 1076 | + + + | Race | Unknown | + + + | Ethnic Group | Unknown | + + + Author + + + | Author | [facility] | | | and [place] | + + + | Organization | [facility] | | | [...] Providers + +------+ + | Care Certified Energy Manager Name | Role | Phone | [...] + + | 11/25/ | Office | [facility] | Xiang Sepulveda, | Chronic pain | | 2019 | Visit | [facility] | DO [address] | syndrome (Primary | | | | DOLOROLOGY [address] | [place] | Dx); Other chronic | | | | [address] | [address] | pain; DDD | | | | [place], [place] | | (degenerative disc | | | | [address] | | disease), lumbar; | | | | [phone] | | Decreased range of | | [...] not limited to phys ical therapy, care worker, acupuncture, massage therapy, and nutritional [...] Author Status Filed Medication Agreement Antonella Sprague, Parts Classifier Active 11/25/2019 10:52 AM Pain Contract- Dr. Sepulveda 11/25/2019 PEG Pain screening tool (Pain, enjoyment, general activity) Total score: (Printable questionnaires in Solomon Islander ) Interpretation of Total Score: PEG scores are used to track changes over time. It should de crease after therapy has begun. Last 4 PEG Scores: No flowsheet data found. Opioid Risk Tool (ORT): Total Score Pulse: 104 Resp: 20 BP: 184/69 SpO2: 97 % (From Chronic Pain tab; printable questionnaires in [place] Islander) Interpretation of Total Score: 0 to 3 [...] ; Surg andrés: Rustam Schmid MD; Location: [facility] MAIN OR Review of Systems Constitutional: [...] reviewed, listed controlled substances are consistent with [facility] prescriptions and patient reported use. Controlled [...] to physical therapy, massage therapy, acupuncture, care worker, along with jabari mmended psychological counseling, either privately, or in group sessions offered by private care individuals, community services, or uatsdin organizations. Appropriate referrals were made at patient [...] are noted in men and women. Ma ne men will suffer erectile dysfunction with these [...] and complications with the passage of time. retirement use is also associated with depressions, and liver and renal failure. Finally, these medicines are associated with both physical and emotional addiction and can be difficult to stop after taking for only a few weeks. This document has been created using [employer] Voice Recognition software and Truzip. The entry has been reviewed for content and accuracy, but there may still exist "sound alike" delivery professional word errors and/or unintended additions and deletions. [...] [place] | | | | | | [id number] | | | | | | | [...]
--- OUTSIDE RECORDS SUMMARY | ~2020-03-28 | XMS | Encounter Summary ---
Demographics + + + | Address | [address] | | | [place] [address] | + + + | Home Phone [...] Team Providers + +------+ + | Care Employee Training Specialist Name | Role | Phone | [...] + + + + | 10/24/ | Aquatic Performer | Infectious | Carolina Putnam | | | 2010 | | Diseases at [facility] | K, PAXavierC [address] | | | | | [address] | [address] | | | | | [address] | [place], [place] | | | | | [place], [address] floor | [address] | | | | | [place], [place] | [phone] | | | | | [address] | | | | | | [phone] | | | +--------+ + + + [...]
--- OUTSIDE RECORDS SUMMARY | ~2020-03-28 | XMS | Encounter Summary ---
Demographics + + + | Address | [address] | | | [place] [address] | + + + | Home Phone [...] Team Providers + +------+ + | Care Farm Consultant Name | Role | Phone | [...] as of this encounter Progress Notes Interface, Slot Floorman In - 04/28/2005 7:30 PM PDTClinic Date: [...] Mariella Camacho P.A.-C. Lloyd Garcia M.D. / [id number] / [id number] / [id number] / [id number] Tdocumented in this encounter Plan of Treatment Not on filedocumented as of this encounter Visit Diagnoses Not on filedocumented in this encounter"
--- OUTSIDE RECORDS SUMMARY | ~2020-03-28 | XMS | Encounter Summary ---
Demographics + + + | Address | [address] | | | [place] [address] | + + + | Home Phone | | + + + | Preferred Language | Unknown | + + + | Marital Status | | + + + | Christianity Affiliation | 1076 | + + + | Race | Unknown | + + + | Ethnic Group | Unknown | + + + Author + + + | Author | [facility] | | | and [place] | + + + | Organization | [facility] | | [...] Team Providers + +------+ + | Care Escalator Constructor Name | Role | Phone | + +------+ + PCP | Unavailable | + +------+ + Encounter Details +--------+ + + + + | Date | Type | Department | Care Team | Description | +--------+ + + + + | 10/21/ | [facility] | [facility] | Helio Ahn | | | 2006 | Encounter | MED CTR SLEEP | MD [place] | | | | | CENTER [address] | [address] | | | | | [place] | [place] [address] | | | | | [address] | [phone] | | | | | [phone] | | | +--------+ + + + [...] | | | | | | [place] | | | | | | [address] | | | | | | | | +--------+---------+ + + + documented as of this encounter Visit Diagnoses Not on filedocumented in this encounter"
--- OUTSIDE RECORDS SUMMARY | ~2020-03-28 | XMS | Encounter Summary ---
Demographics + + + | Address | [address] | | | [place] [address] | + + + | Home Phone [...] Team Providers + +------+ + | Care Maintenance Craftsman Name | Role | Phone | + +------+ + | Travis Mcginnis MD | PCP | | + +------+ + Encounter Details +--------+ + + + + | Date | Type | Department | Care Team | Description | +--------+ + + + + | 05/10/ | Hospital | Diagnostic | | | | 2010 | Encounter | Radiology at [facility] | | | | | | [address] | | | | | | [address] | | | | | | [place], [facility] Floor | | | | | | [place], [place] | | | | | | [address] | | | | | | [phone] | | | +--------+ + + + [...] + + + +---------+ + + | [place]-3 Fatty | Take by mouth. | | [...] X-RAY HIP 2 VIEWS | Routin | 05/10/2011 | Osteoarthritis of | Results for this | | RIGHT W/ PELVIS 1 | e | 11:53 AM | hip Hip pain Hip | procedure are in the | | VIEW | | PDT | pain, right | results section. | + +--------+ + [...] Final/Electronically | | | | | | olga / Yue Abdalla | | | | [...] and thigh | + + | Hip pain, right Pain in joint, pelvic region and thigh | + + documented in this encounter"
--- OUTSIDE RECORDS SUMMARY | ~2020-03-28 | XMS | Encounter Summary ---
Demographics + + + | Address | [address] | | | [place] [address] | + + + | Home Phone [...] Team Providers + +------+ + | Care Harness Repairer Name | Role | Phone | [...] [facility] | | | | | | [address] | | | | | | [address] | | | | | | [place], [address] | | | | | | [place], [place] | | | | | | [address] | | | | | | [phone] | | | +--------+ + + + [...]
--- OUTSIDE RECORDS SUMMARY | ~2020-03-28 | XMS | Encounter Summary ---
Demographics + + + | Address | [address] | | | [place] [address] | + + + | Home Phone [...] Team Providers + +------+ + | Care Regulatory And Compliance Technician Name | Role | Phone | [...] as of this encounter Progress Notes Interface, Junk Removal Specialist In - 04/28/2005 5:10 PM PDTClinic Date: 08/31/2003 Orthopedic The patient called on August 31, 2003, requesting a prescription refill for oxycodone. A prescription refill was granted 50, 5 mg oxycodone was sent. This prescription refill was handled by Mariella Camacho. Dev Fleming M.D. / [id number] / [id number] / [id number] / Tdocumented in this encounter Plan of Treatment Not on filedocumented as of this encounter Visit Diagnoses Not on filedocumented in this encounter"
--- OUTSIDE RECORDS SUMMARY | ~2020-03-28 | XMS | Encounter Summary ---
Demographics + + + | Address | [address] | | | [place] [address] | + + + | Home Phone | | + + + | Preferred Language | Unknown | + + + | Marital Status | | + + + | Sabianism Affiliation | 1076 | + + + | Race | Unknown | + + + | Ethnic Group | Unknown | + + + Author + + + | Author | [facility] | | | and [place] | + + + | Organization | [facility] | | | [...] Providers + +------+ + | Care Head Of Transport Logistics Name | Role | Phone | + +------+ + | Karli Hammonds | PCP | | | MD | | | + +------+ + Reason for Visit + +--------+ + | Reason | Onset | Comments | | | Date | | + +--------+ + | Appointment | 09/01/ | | | | 2011 | | + +--------+ + Encounter Details +--------+ + + + + | Date | Type | Department | Care Team | Description | +--------+ + + + + | 09/01/ | Telephone | [facility] | Augie Valdivia MD | Appointment | | 2011 | | GASTROENTEROLOGY | [address], [place] | | | | | [address] | [address] [place], [place] | | | | | [address] [place], [place] | [address] | | | | | [address] | | | | | | [phone] | | | +--------+ + + + [...] Telephone Encounter - Isabella Roblero RN - 09/19/2012 11:03 AM PSTCalled patient back let he r know can reschedule for Oct.24 with 0900 check in time, will need a 2 day prep, she states she has not been feeling well with nausea and vomiting states has been hospitalized states "they dont know whats wrong give me pain medication and nausea medication and let me out" qu estioned if loosing weight states no gaining weight, states she talked with pcp and is wonde ring if in [place] can do the procedure. She will call back if she wants to cance l her procedure here. el ephone Encounter - Isabella Roblero RN - 09/10/2012 2:51 PM PSTPatient called back appears earl singer had called Sep.01 but phone note was not routed to our work que, patient is wondering a bout rescheduling, advised that she was last seen in February has cancelled once did not prep we ll enough another time, appears will need a vigorous 2 day prep unfortunately is fu ll until September advised will not be able to have it done this week will call her back once has reviewed chart. elephone Encounter - Rosa Barnes - 09/01/2012 4:59 PM PSTPATIENT IS CALLING ABOUT RE SCHEDULING PROCEDURE. SHE HAS HAD DIFFICULTY WITH THE PREP. SHE STATES THAT SHE HAS RECENTLY BEEN SICK AND HER SYSTEM IS PRETTY EMPTY AND SHE WOULD LIKE TO KNOW IF WE CAN GET THIS REBECCA EDULED SOON WHILE SHE HAS LESS TO EMPTY OUT OF HER SYSTEM. PLEASE CALL documented in this encounter Plan of Treatment +--------+---------+ + + + | Date | Type | Specialty | Care Team | Description | +--------+---------+ + + + | 05/23/ | Office | Pain Medicine | Xiang Sepulveda, | | | 2019 | Visit | | [address] | | | | | | [place] | | | | | | [address] | | | | | | | | +--------+---------+ + + + documented as of this encounter Visit Diagnoses Not on filedocumented in this encounter
--- OUTSIDE RECORDS SUMMARY | ~2020-03-28 | XMS | Encounter Summary ---
Demographics + + + | Address | [address] | | | [place] [address] | + + + | Home Phone [...] Team Providers + +------+ + | Care Instructor Flying Name | Role | Phone | + [...] as of this encounter Progress Notes Interface, Contour Band Saw Operator Vertical In - 08/06/2006 1:09 AM PSTCLINIC DATE: [...] provided by Dr. Noland. Lloyd Garcia M.D. Radio Director, Orthopedics and Rehabilitation / [id number] / [id number] / [id number] / [id number] cc: Helio Noland M.D. [address] [place], [place] [id number] signed by Interface, Contour Band Saw Operator Vertical In at 08/06/2006 1: 09 AM PSTdocumented in this encounter Plan of Treatment Not on filedocumented as of this encounter Visit Diagnoses Not on filedocumented in this encounter
--- OUTSIDE RECORDS SUMMARY | ~2020-03-28 | XMS | Encounter Summary ---
Demographics + + + | Address | [address] | | | [place] [address] | + + + | Home Phone [...] Providers + +------+ + | Care Data Control Clerk Name | Role | Phone [...] [facility] | | | | | | [address] | | | | | | [address] | | | | | | [place], [address] | | | | | | [place], [place] | | | | | | [address] | | | | | | [phone] | | | +--------+ + + + [...]
--- OUTSIDE RECORDS SUMMARY | ~2020-03-28 | XMS | Encounter Summary ---
Demographics + + + | Address | [address] | | | [place] [address] | + + + | Home Phone [...] Team Providers + +------+ + | Care Chronometer Adjuster Name | Role | Phone | [...] as of this encounter Progress Notes Interface, Accordion Repairer In - 08/20/2006 3:01 AM PSTCLINIC DATE: [...] primary care provider. Alpa Ritter LPN / [id number] / [id number] / [id number] / Tdocumented in this encounter Plan of Treatment Not on filedocumented as of this encounter Visit Diagnoses Not on filedocumented in this encounter"
--- OUTSIDE RECORDS SUMMARY | ~2020-03-28 | XMS | Encounter Summary ---
Demographics + + + | Address | [address] | | | [place] [address] | + + + | Home Phone [...] Team Providers + +------+ + | Care Outside Parts Sales Name | Role | Phone | [...] [address] | | | | | | [place], [place] | | | | | | [address] | | | | | | [phone] | | | +--------+ + + + [...] | | | | | FINDINGS: The photograph tinter | | | | | | radiographs [...] | | + +---------+ + + | [facility] DEPARTMENT OF | | | | [...] | | | | | FINDINGS: The photograph tinter | | | | | | radiographs [...] | | + +---------+ + + | [facility] DEPARTMENT OF | | | | | RADIOLOGY | | | | + +---------+ + + documented in this encounter Visit Diagnoses Not on filedocumented in this encounter"
--- OUTSIDE RECORDS SUMMARY | ~2020-03-28 | XMS | Encounter Summary ---
Demographics + + + | Address | [address] | | | [place] [address] | + + + | Home Phone [...] Providers + +------+ + | Care Manager Case Management Name | Role | Phone | + [...] + | [facility] DEPARTMENT | [address] | [place] [address] | | | PATHOLOGY | [address] | | | + + + + + | [facility] DEPARTMENT OF | [address] | [place] [address] | | | PATHOLOGY | [address] [...] DEPARTMENT OF | [address] | [place] [address] | | | PATHOLOGY | [address] | | | + + + + + | [place] DEPARTMENT OF | [address] | [place] [address] | | | PATHOLOGY | [address] [...] + + + | [facility] | [address] | [place] [address] | | | PATHOLOGY | [address] | | | + + + + + | [facility] DEPARTMENT OF | [address] | [place] [address] | | | PATHOLOGY | [address] [...] + + + | [facility] | [address] | [place] [address] | | | PATHOLOGY | [address] | | | + + + + + | [facility] | [address] | [place] [address] | | | PATHOLOGY | [address] | | | + + + + + documented in this encounter Visit Diagnoses Not on filedocumented in this encounter"
--- OUTSIDE RECORDS SUMMARY | ~2020-03-28 | XMS | Encounter Summary ---
Demographics + + + | Address | [address] | | | [place] [address] | + + + | Home Phone [...] + | Casandra Smith | ROBERTO | [place] | | + + + + + Care Team Providers + +------+ + | Care Net Web Application Developer Name | Role | Phone | + +------+ + PCP | Unavailable | + +------+ + Encounter Details +--------+ + + + + | Date | Type | Department | Care Team | Description | +--------+ + + + + | 12/08/ | Office | [facility] | Note, [...] as of this encounter Progress Notes Interface, Periodontal Assistant In - 04/28/2005 10:57 PM PDTClinic Date: 12/09/2003 Orthopedic History: A 43-year-old woman follows with 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 Her history is well detailed in my prior clinic note. She had a cheilectomy followed by open reduction internal fixation with loss of fixation of the greater trochanter followed by wound infection which required serial irrigations and debridements and eventually led to a closure. She has stopped her nafcillin, had her PICC line removed, and has been changed from dicloxacillin due to diarrhea to Keflex. She reports that the diarrhea has dramatically improved, although she did not like the acidophilus milk. She does use occasional yoghurt. She has had some drainage out of her pigtail catheter. She says that it was last drained at 8 p.m. last night, and there is approximately 5 to 10 mL of serosanguinous cloudy fluid in there now. Physical Examination Vital Signs: Temperature 96.9, respiratory rate 15, height 5 feet 4 inches, and weight 248 pounds. Musculoskeletal: Her pain is burning and 3/10 to 6/10 in severity. It does not seem to be associated with weightbearing, and overall, she ambulates with a much improved limp from before her initial surgery. Her incision is well healed. There is some drainage draining out around the catheter. The suture holding it in place is intact. There is a small skin breakdown area at the anterior aspect of the incision, but the incision itself is holding together, and this seems just to be epidermal. He has no cellulitis or lymphangitis. I am unable to express any fluid from the wound around the drain or through the drain. 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 Laboratory Data: Laboratory studies show that her erythrocyte sedimentation rate has continued to decrease. It is 27 this week, it was 31 last week. On November 18, 2003, it was 39. It had a peak of 94 on September 25, 2003. C-reactive protein level is pending for today but had decreased from 7.7 on September 25, 2004, to 0.5 on October 21, 2003. It increased to 1.2 on November 01, 2003, before her catheter was placed, and then steadily decreased to a level of being less than 0.3 last week. Assessment: Clinically healed right lateral hip wound with decreasing drainage and signs of infection responding to Keflex. Disposition: I have recommended that she continue the Keflex. She has stopped the Flagyl. She will leave the drain in place and return to clinic in 1 to 2 weeks with repeat CBC, ESR, and C-reactive protein levels. I have asked for an ultrasound to measure the size of the fluid cavity to help us determine when the drain should be removed. I would like to continue the antibiotics until her laboratory values are all normal and remove the drain when there is no longer any fluid pocket. Lloyd Garcia M.D. Fast Food Restaurant Manager, Orthopedics and Rehabilitation / [id number] / [id number] / [id number] / [id number] cc: Everett Ibarhim MD [address] [place], [place] [id number] signed by Interface, Periodontal Assistant In at 04/28/2005 10:57 PM PDTdocumented in this encounter Plan of Treatment Not on filedocumented as of this encounter Visit Diagnoses Not on filedocumented in this encounter"
--- OUTSIDE RECORDS SUMMARY | ~2020-03-28 | XMS | Encounter Summary ---
Demographics + + + | Address | [address] | | | [place] [address] | + + + | Home Phone | | + + + | Preferred Language | Unknown | + + + | Marital Status | | + + + | Scientology Affiliation | 1076 | + + + | Race | Unknown | + + + | Ethnic Group | Unknown | + + + Author + + + | Author | [facility] | | | and [place] | + + + | Organization | [facility] | | [...] Providers + +------+ + | Care Engineering Model Maker Name | Role | Phone | + +------+ + PCP | Unavailable | + +------+ + Encounter Details +--------+ + + + + | Date | Type | Department | Care Team | Description | +--------+ + + + + | 05/30/ | Hospital | [facility] | Augie Valdivia MD | | | 2011 | Encounter | MED CTR MP INTRA OP | [address], [place] | | | | | [address] | [address] | | | | | [place] | [address] | | | | | [address] | | | | | | [phone] | | | +--------+ + + + [...] + + + +---------+ + + | polyethylene | to be taken the day | | 0 | 05/01/20 | | | glycol-electrolytes | prior to procedure | | | 12 | 3 | | (NULYTELY WITH | drink 8 ounces every | | | | | | FLAVOR PACKS) 420 G | 10-20 minutes until | | | | | | solution | gone | | | | | + + [...] [place] | | | | | | [address] | | | | | | | | +--------+---------+ + + + documented as of this encounter Visit Diagnoses Not on filedocumented in this encounter"
--- OUTSIDE RECORDS SUMMARY | ~2020-03-28 | XMS | Encounter Summary ---
Demographics + + + | Address | [address] | | | [place] [address] | + + + | Home Phone [...] Team Providers + +------+ + | Care Blood Bank Specialist Name | Role | Phone | [...] Pavilion | | | | | | [place], [place] | | | | | | [address] | | | | | | [phone] | | | +--------+ + + + [...] | | | | | FINDINGS: The superintendent radio communications | | | | | | radiographs [...] | | | | | FINDINGS: The superintendent radio communications | | | | | | radiographs [...]
--- OUTSIDE RECORDS SUMMARY | ~2020-03-28 | XMS | Encounter Summary ---
Demographics + + + | Address | [address] | | | [place] [address] | + + + | Home Phone [...] Team Providers + +------+ + | Care Echo Vascular Technologist Name | Role | Phone | [...]
--- OUTSIDE RECORDS SUMMARY | ~2020-03-28 | XMS | Encounter Summary ---
Demographics + + + | Address | [address] | | | [place] [address] | + + + | Home Phone [...] as of this encounter Discharge Summaries Interface, Manager English In 04/28/2005 5:10 PM PDTAdmission Date: 09/25/2003 [...]
--- OUTSIDE RECORDS SUMMARY | ~2020-03-28 | XMS | Encounter Summary ---
Demographics + + + | Address | [address] | | | [place] [address] | + + + | Home Phone [...] Providers + +------+ + | Care Marine Architect Name | Role | Phone | [...] | + + + + + | [facility] | [address] | [place] [address] | | | PATHOLOGY | [address] | | | + + + + + | [facility] | [address] [place] [address] [address] | [place] [address] | | | PATHOLOGY | [address] [...] by | | | | | | [facility] | | | | | | [facility]. | | | | + + + + + + + + | Specimen | + + | | + + + + + + + | Performing | Address | City/State/Zipcode | Phone Number | | Organization | | | | + + + + + | [facility] | [address] | [place] [address] | | | LABORATORY | | | [...] + + + + + | [facility] | [address] | [place] [address] | | | PATHOLOGY | [address] | | | + + + + + | [facility] | [facility] [address] | [place] [address] | | | PATHOLOGY | [address] [...] | + + + + + | [facility] | [address] | [place] [address] | | | PATHOLOGY | [address] | | | + + + + + | [facility] | [address] [place] [address] [address] | [place] [address] | | | PATHOLOGY | [address] [...] by | | | | | | [facility] | | | | | | [...] [facility] | [address] | [place] [address] | | | LABORATORY | | | [...] | + + + + + | [facility] DEPARTMENT | [address] | [place] [address] | | | PATHOLOGY | [address] | | | + + + + + | [facility] DEPARTMENT OF | [address] | [place] [address] | | | PATHOLOGY | [address] | | | + + + + + documented in this encounter Visit Diagnoses Not on filedocumented in this encounter"
--- OUTSIDE RECORDS SUMMARY | ~2020-03-28 | XMS | Encounter Summary ---
Demographics + + + | Address | [address] | | | [place] [address] | + + + | Home Phone [...] Team Providers + +------+ + | Care Ignition Specialist Name | Role | Phone | + +------+ + PCP | Unavailable | + +------+ + Encounter Details +--------+ + + + + | Date | Type | Department | Care Team | Description | +--------+ + + + + | 07/27/ | Body Recall Instructor | Orthopaedics at | Tesfaey Saenz | Osteoarthritis of | | 2007 | | [facility] [address] | MEGAN Evangelista | Hip; Hip Pain | | | | [address] | | | | | | Mailcode: [id number] | | | | | | [facility] | | | | | | [place], [place] | | | | | | [address] | | | | | | [phone] | | | +--------+ + + + [...] | | + +---------+ + + | [facility] DEPARTMENT OF | | | | [...]
--- OUTSIDE RECORDS SUMMARY | ~2020-03-28 | XMS | Encounter Summary ---
Demographics + + + | Address | [address] | | | [place] [address] | + + + | Home Phone [...] Team Providers + +------+ + | Care Staff Scientist Name | Role | Phone | [...] as of this encounter Progress Notes Interface, Audio Visual Secretary In - 04/28/2005 5:10 PM PDT Referred [...]
--- OUTSIDE RECORDS SUMMARY | ~2020-03-28 | XMS | Encounter Summary ---
Demographics + + + | Address | [address] | | | [place] [address] | + + + | Home Phone [...] Team Providers + +------+ + | Care Knockdown Worker Name | Role | Phone | [...] Description | +--------+---------+ + + + | 03/17/ | Office | [facility] | Ladarius Martínez PA | MAMADOU on CPAP (Primary | | 2012 | Visit | SLEEP DISORDER [address] | [address] | Dx) | | | | [address] [place] | [place], [place] | | | | | [place] [address] | [address] | | | | | [phone] | | | +--------+---------+ + + + [...] + + + | Blood Pressure | 138/86 | 03/17/2013 11:03 AM | | | | | PDT | | + + + + + | Pulse | 86 | 03/17/2013 11:03 AM | | | | | PDT | | + + + + + | Temperature | - | - | | + + + + + | Respiratory Rate | 18 | 03/17/2013 11:03 AM | | | | | PDT | | + + + + + | Oxygen Saturation | - | - | | + + + + + | Inhaled Oxygen | - | - | | | Concentration | | | | + + + + + | Weight | 132.1 kg (291 lb 4.8 | 03/17/2013 11:03 AM | | | | oz) | PDT | | + + + + + | Height | - | - | | + + + + + | Body Mass Index | 50 | 03/06/2012 12:00 AM | | | | | PDT | | + + + + + documented in this encounter Progress Notes Ladarius Martínez PA - 03/17/2013 11:08 AM PDT Subjective: Patient ID: Shelby Galdamez is a 52 y.o. female. HPI last office visit was: 01/13/2013 date of polysomnography: 09/18/2006 AHI: 57.1 O2%: 87% with minutes below 88% Machine type: Ravi obtained from: [facility] in [place] pressure is: 9 cm ResMed S9: Pressure: 9-16 cm 95%: 13.7 cm Maximum: 14.6 cm CPAP download shows CPAP useage # nights: 23/39 average usage (all nights): 4:40 average usage (nights used): 5:31 AHI: 0.8 Shelby comes in for CPAP compliance. She says that she sleeps much better when she uses he r CPAP. She slept even better with the ResMed S9. She likes it and would like to keep it. We discussed the criteria for compliance that she must meet in order for insurance to cover the S9. Her biggest concern with this is the fact that she is frequently taking off her ma sk during the night without knowing it. I have discussed the download in detail. This shows that her sleep apnea is well controlle d, with an AHI of 0.8. It also shows that her leaks are [...] is frequently taking off her mask during th e night without knowing it. Plan: She [...] to go to [facility] in [place] to get a fitting for her mask that will allow it to connect to her hose properly. I will follow up again in 1 month, sooner prn. Fifteen minutes were spent [id number], wi th the majority of time spent in counseling. Ladarius Martínez PA-C cc: Dr. Barry documented in this enco unter Plan of [...] [place] | | | | | | [address] | | | | | | | | +--------+---------+ + + + documented as of this encounter Visit Diagnoses + + | Diagnosis | + + | MAMADOU on CPAP - Primary Obstructive sleep apnea (adult) (pediatric) | + + documented in this encounter"
--- OUTSIDE RECORDS SUMMARY | ~2020-03-28 | XMS | Encounter Summary ---
Demographics + + + | Address | [address] | | | [place] [address] | + + + | Home Phone | | + + + | Preferred Language | Unknown | + + + | Marital Status | | + + + | Episcopalian Affiliation | 1076 | + + + | Race | Unknown | + + + | Ethnic Group | Unknown | + + + Author + + + | Author | [facility] | | | and [place] | + + + | Organization | [facility] | [...] Team Providers + +------+ + | Care Diamond Die Driller Name | Role | Phone | + +------+ + PCP | Unavailable | + +------+ + Encounter Details +--------+ + + + + | Date | Type | Department | Care Team | Description | +--------+ + + + + | 05/07/ | Hospital | [facility] | Helio Ahn | | | 2001 | Encounter | MED CTR SLEEP | MD Candie [address] | | | | | CENTER [address] | [address] [place] | | | | | [place] | [place] [address] | | | | | [address] | [phone] | | | | | [phone] | | | +--------+ + + + [...] [place] | | | | | | [address] | | | | | | | | +--------+---------+ + + + documented as of this encounter Visit Diagnoses Not on filedocumented in this encounter"
--- OUTSIDE RECORDS SUMMARY | ~2020-03-28 | XMS | Encounter Summary ---
Demographics + + + | Address | [address] | | | [place] [address] | + + + | Home Phone [...] Team Providers + +------+ + | Care Adult Secondary Education Instructor Name | Role | Phone | + +------+ + | Yuki Pantoja MD | PCP | | + +------+ + Encounter Details +--------+ + + + + | Date | Type | Department | Care Team | Description | +--------+ + + + + | 10/11/ | Documentati | Anesthesiology | Unknown . | | | 2003 | on | [address] | | | | | | [place], | | | | | | [place] [address] | | | +--------+ + + + [...] | | Patient: SHELBY GALDAMEZ Med Rec: [id number] Sex F Bdate: 1960 | | Date/Time Data | | Entered Into [facility] | | Anesth PostOp | | Surgery Date [id number] 10/11/03 10:54 | | [id number] 10/06/03 10:47 | | [id number] 10/04/03 10:47 | | [id number] 10/01/03 11:25 | | [id number] 09/28/03 10:01 | | [id number] 09/27/03 11:35 | | [id number] 09/14/03 11:13 | | [id number] 08/17/03 10:51 | | Anesthesiologist SEBASTIAN MARIO [...]
--- OUTSIDE RECORDS SUMMARY | ~2020-03-28 | XMS | Encounter Summary ---
Demographics + + + | Address | [address] | | | [place] [address] | + + + | Home Phone [...] Team Providers + +------+ + | Care Actuarial Clerk Name | Role | Phone | [...] as of this encounter Progress Notes Interface, Wire Winding Machine Tender In - 08/03/2006 5:18 AM PSTCLINIC DATE: [...] hip at that time. Lloyd Garcia M.D. Bookbinder Apprentice of Orthopedics and Rehabilitation / [id number] / [id number] / [id number] / [id number] cc: Helio Noland M.D. P.OJuan [facility] [place] [facility] [address] [place], [place] [id number] signed by Interface, Wire Winding Machine Tender In at 08/03/2006 5: 18 AM PSTdocumented in this encounter Plan of Treatment Not on filedocumented as of this encounter Visit Diagnoses Not on filedocumented in this encounter"
--- OUTSIDE RECORDS SUMMARY | ~2020-03-28 | XMS | Encounter Summary ---
Demographics + + + | Address | [address] | | | [place] [address] | + + + | Home Phone [...] Team Providers + +------+ + | Care Color Expert Name | Role | Phone | [...] [facility] | | | | | [address] | [place], [place] | | | | | [place], [facility] floor | [address] | | | | | [place], [place] | [phone] | | | | | [address] | | | | | | [phone] | | | +--------+ + + + [...]
--- OUTSIDE RECORDS SUMMARY | ~2020-03-28 | XMS | Encounter Summary ---
Demographics + + + | Address | [address] | | | [place] [address] | + + + | Home Phone [...] Team Providers + +------+ + | Care Line Lead Name | Role | Phone | [...] | | | | due to | [place] | | | | | unspecified | [address] | [address] | | | | | device, | Phone: | Phone: | | | | | implant, and | [phone] | [phone] | | | | | graft | Fax: | Fax: | | | | | | [phone] | [phone] | +--------+--------+ + + + + Encounter [...] | | | [address] | [facility] [address] | (Primary Dx) | | | | Loop Physician's | [place], [place] | | | | | [place], 3rd floor | [address] | | | | | [place], [place] | [phone] | | | | | [address] | | | | | | [phone] | | | +--------+---------+ + + + [...] CLINIC FOLLOW UP Primary Care Physician: Carlos [address] [address] Ms. Galdamez presents to Infectious Diseases Clinic [...] 18, a nd was therefore admitted to [facility] out of concern for R hip infection. [...] discharged in stable condition on 10/22/2010 to [facility] with OPAT & Orthopedic follow-up planned in 2 weeks ti nj. Interim History obtained 11/17/2010: Ms. Galdamez presents [...] R hip incision has healed very well. [place] were removed locally, and there has been [...] as well as in shoes and socks. [place]-3 Fatty Acids-Vitamin E (FISH OIL) 1,000 mg [...] She will travel to her PCP in [place] in 1 weeks time for another PICC [...] a nd follow-up planning. Carolina Putnam PA-C [facility] Department of Infectious Disease Outpatient IV Antibiotic Therapy Clinic (OPAT) Pager ID: [phone] Mail Code C996 [place] [address] documented in th is encounter Plan of [...] + + + + + | [facility] | [address] | [place] [address] | | | PATHOLOGY | [address] [...] At | + + + | [facility]) | [facility] | | [facility] [address] | REGIONAL | | [place] [address] | LABORATORY | + + + + + + + + | Performing | Address | City/State/Zipcode | Phone Number | | Organization | | | | + + + + + | [facility] | [address] | [place] [address] | | | LABORATORY | | | [...] + + | [facility] DE[facility] OF | [address] | [place] [address] | | | PATHOLOGY | [address] [...] | | | DEPARTMENT | | | NI[place] | | | OF | | | [...] DEPARTMENT OF | [address] | [place] [address] | | | PATHOLOGY | [address] [...] + + + + + | [facility] | [address] | [place] [address] | | | PATHOLOGY | [address] | | | + + + + + documented in this encounter Visit Diagnoses + + | Diagnosis | + + | 

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
--- OUTSIDE RECORDS SUMMARY | ~2020-03-28 | XMS | Encounter Summary ---
Demographics + + + | Address | [address] | | | [place] [address] | + + + | Home Phone [...] Providers + +------+ + | Care Medical Translator Name | Role | Phone | [...] Pavilion | | | | | | [place], [place] | | | | | | [address] | | | | | | [phone] | | | +--------+ + + + [...] | AB, IGM | Test performed by [place] | | | | | | [facility] | | | | | | [address]. | | | | + + + + + + + + | Specimen | + + | | + + + + + + + | Performing | Address | City/State/Zipcode | Phone Number | | Organization | | | | + + + + + | [facility] | [address] | [place] [address] | | | LABORATORY | | | [...] by | | | | | | [facility] | | | | | | [facility]. | | | | + + + + + + + + | Specimen | + + | | + + + + + + + | Performing | Address | City/State/Zipcode | Phone Number | | Organization | | | | + + + + + | [facility] | [address] | [place] [address] | | | LABORATORY | | | [...] | + + + + + | [facility] | [address] | [place] [address] | | | LABORATORY | | | [...] | AB TOTAL | Test performed by [place] | | | | | | [facility] | | | | | | Laboratories. [...] | + + + + + | [facility] | [address] | [place] [address] | | | LABORATORY | | | [...] | + + + + + | [facility] | [address] | [place] [address] | | | PATHOLOGY | [address] | | | + + + + + | [facility] | [address] | [place] [address] | | | PATHOLOGY | [address] [...] + + + + | [facility] DEPARTMENT OF | [address] | [place] [address] | | | PATHOLOGY | [address] | | | + + + + + | [place] DEPARTMENT OF | [address] | [place] [address] | | | PATHOLOGY | [address] [...] | + + + + + | [facility] | [facility] | [place] [address] | | | PATHOLOGY | [address] | | | + + + + + | [facility] | [facility] | [place] [address] | | | PATHOLOGY | [address] [...] DEPARTMENT OF | [address] | [place] [address] | | | PATHOLOGY | [address] | | | + + + + + | [facility] DEPARTMENT OF | [address] | [place] [address] | | | PATHOLOGY | [address] [...] + + + + | [facility] DEPARTMENT OF | [address] | [place] [address] | | | PATHOLOGY | [address] | | | + + + + + | [facility] DEPARTMENT OF | [address] | [place] [address] | | | PATHOLOGY | [address] [...] DEPARTMENT OF | [address] | [place] [address] | | | PATHOLOGY | [address] | | | + + + + + | [facility] | [address] | [place] [address] | | | PATHOLOGY | [address] [...] | + + + + + | [facility] | [address] | [place] [address] | | | LABORATORY | | | [...] + + + + | [facility] DEPARTMENT OF | [address] | [place] [address] | | | PATHOLOGY | [address] | | | + + + + + | [place] DEPARTMENT OF | [address] | [place] [address] | | | PATHOLOGY | [address] [...] + + + + | [facility] DEPARTMENT OF | [address] | [place] [address] | | | PATHOLOGY | [address] | | | + + + + + | [facility] DEPARTMENT OF | [address] | [place] [address] | | | PATHOLOGY | [address] [...] + + + + | PRODUCT | [id number] | | [facility] | | | UNIT [...] | + + + + + | [facility] | [address] [facility] | [place] [address] | | | PATHOLOGY | [address] | | | + + + + + | [facility] | [address] [place] [address] | [place] [address] | | | PATHOLOGY | [address] [...] + + + + | PRODUCT | [id number] | | [facility] | | | UNIT [...] + + + + | [facility] DEPARTMENT OF | [address] | [place] [address] | | | PATHOLOGY | [address] | | | + + + + + | [facility] DEPARTMENT OF | [address] | [place] [address] | | | PATHOLOGY | [address] [...] DEPARTMENT OF | [address] | [place] [address] | | | PATHOLOGY | [address] | | | + + + + + | [facility] | [address] | [place] [address] | | | PATHOLOGY | [address] [...] | | | | | available on [employer] and | | | | | | [...] | | + +---------+ + + | [facility] DEPARTMENT OF | | | [...] | + + + + + | [facility] | [address] | [place] [address] | | | LAB-MICRO | | | [...] + + + + + | [facility] | [address] | [place] [address] | | | LAB-MICRO | | | [...] | + + + + + | [facility] | [address] | [place] [address] | | | LAB-MICRO | | | | + + + + + documented in this encounter Visit Diagnoses Not on filedocumented in this encounter"
--- OUTSIDE RECORDS SUMMARY | ~2020-03-28 | XMS | Encounter Summary ---
Demographics + + + | Address | [address] | | | [place] [address] | + + + | Home Phone [...] + +------+ + | Care Sales And Service Advisor Name | Role | Phone | + [...] Procedures | Pankaj Bergman | Roxann Ayala [facility] | | | | | CT INJ | Roxann Ay[facility], | | | | | SACROILIAC | [place], [place] | 10th Floor | | | | | JOINT | [address] | [place], [place] | | | | | W/NEEDLE | Phone: | [address] | | | | | PLCMT | [phone] | Phone: | | | | | | Fax: | [phone] | | | | | | [phone] | Fax: | | | | | | | [phone] | +--------+--------+ + + + + Encounter Details +--------+ + + + + | Date | Type | Department | Care Team | Description | +--------+ + + + + | 10/12/ | Hospital | Diagnostic Imaging | | | | 2009 | Encounter | Services at [facility] | | | | | | [address] | | | | | | Roxann Ayala [facility] | | | | | | [address] | | | | | | [place], [place] | | | | | | [address] | | | | | | [phone] | | | +--------+ + + + [...] | | | | | | the system support technician. | | | | | | Manual Plate Filler imaging was | | | | | [...]
--- OUTSIDE RECORDS SUMMARY | ~2020-03-28 | XMS | Encounter Summary ---
Demographics + + + | Address | [address] | | | [place] [address] | + + + | Home Phone [...] Team Providers + +------+ + | Care Rim Roller Setter Name | Role | Phone | [...] | | [address] | Roxann Ayala [place], | | | | | Mailcode: [id number] | [place] [address] | | | | | [facility] | | | | | | [place], [place] | | | | | | [address] | | | | | | [phone] | | | +--------+ + + + [...]
--- OUTSIDE RECORDS SUMMARY | ~2020-03-28 | XMS | Encounter Summary ---
Demographics + + + | Address | [address] | | | [place] [address] | + + + | Home Phone [...] Team Providers + +------+ + | Care Team Assembly Line Machine Operator Name | Role | Phone | + +------+ + PCP | Unavailable | + +------+ + Encounter Details +--------+ + + + + | Date | Type | Department | Care Team | Description | +--------+ + + + + | 09/14/ | Results | | Other, Faculty | | | 2002 | Only | | [phone] | | +--------+ + + + + [...] + | Ordered by JEFERSON CRONIN, . [id number] Patient unavailable, | | | specimen not obtained | | + + + + + + + + | Performing | Address | City/State/Zipcode | Phone Number | | Organization | | | | + + + + + | [facility] | [address] | [place] [address] | | | LABORATORY | | | [...] + | Ordered by JEFERSON CRONIN JR. [id number] Patient unavailable, | [facility] | | specimen not obtained | DEPARTMENT OF | | | PATHOLOGY | + + + + + + + + | Performing | Address | City/State/Zipcode | Phone Number | | Organization | | | | + + + + + | [facility] DEPARTMENT | [address] | [place] [address] | | | PATHOLOGY | [address] | | | + + + + + | [facility] | [address] | [place] [address] | | | PATHOLOGY | [address] [...] + | Ordered by JEFERSON CRONIN JR. [id number] Staff or dialysis draw | [facility] | | required. | DEPARTMENT OF | | | PATHOLOGY | + + + + + + + + | Performing | Address | City/State/Zipcode | Phone Number | | Organization | | | | + + + + + | [facility] DEPARTMENT OF | [address] | [place] [address] | | | PATHOLOGY | [address] | | | + + + + + | [facility] DEPARTMENT OF | [address] | [place] [address] | | | PATHOLOGY | [address] [...] | + + + + + | [facility] DEPARTMENT OF | [address] | [place] [address] | | | PATHOLOGY | [address] | | | + + + + + | [facility] DEPARTMENT OF | [address] | [place] [address] | | | PATHOLOGY | [address] [...] + + + + | [facility] | [address] | [place] [address] | | | PATHOLOGY | [address] | | | + + + + + | [facility] DEPARTMENT OF | [address] | [place] [address] | | | PATHOLOGY | [address] | | | + + + + + documented in this encounter Visit Diagnoses Not on filedocumented in this encounter"
--- OUTSIDE RECORDS SUMMARY | ~2020-03-28 | XMS | Encounter Summary ---
Demographics + + + | Address | [address] | | | [place] [address] | + + + | Home Phone [...] Team Providers + +------+ + | Care Sericulture Teacher Name | Role | Phone | [...] Pavilion | | | | | | [place], [place] | | | | | | [address] | | | | | | [phone] | | | +--------+ + + + [...] + | [facility] DEPARTMENT | [address] | [place] [address] | | | PATHOLOGY | [address] | | | + + + + + | [facility] | [address] [place] [address] | [place] [address] | | | PATHOLOGY | [address] [...] DEPARTMENT OF | [address] | [place] [address] | | | PATHOLOGY | [address] | | | + + + + + | [facility] | [address] | [place] [address] | | | PATHOLOGY | [address] | | | + + + + + documented in this encounter Visit Diagnoses Not on filedocumented in this encounter"
--- OUTSIDE RECORDS SUMMARY | ~2020-03-28 | XMS | Encounter Summary ---
Demographics + + + | Address | [address] | | | [place] [address] | + + + | Home Phone [...] Team Providers + +------+ + | Care Patternmaker Apprentice Wood Name | Role | Phone | + [...] | | | | | [place], | | | | | | [place] [address] | | | +--------+ + + + [...]
--- OUTSIDE RECORDS SUMMARY | ~2020-03-28 | XMS | Encounter Summary ---
Demographics + + + | Address | [address] | | | [place] [address] | + + + | Home Phone [...] Team Providers + +------+ + | Care Rubber Compounder Formulator Name | Role | Phone | + +------+ + | Marta Jenkins INDUSTRIAL RENDERER | PCP | | + +------+ + [...] | Jamie Mailcode: [id number] [place], | | | | | [place], [place] | [place] [address] | | | | | [address] | | | | | | [phone] | | | +--------+ + + + [...] | + + + + + | [facility] | [address] | [place] [address] | | | LAB-MICRO | | | [...] | | | | | performed at [facility] | | | | | | [facility] | | | | | | Laboratory. | | | | + + + + + + + + | Specimen | + + | | + + + + + + + | Performing | Address | City/State/Zipcode | Phone Number | | Organization | | | | + + + + + | [facility] | [address] | [place] [address] | | | LAB-MICRO | | | [...] + + + | [facility] | [address] | [place] [address] | | | LAB-MICRO | | | [...] + + + | [facility] | [address] | [place] [address] | | | LAB-MICRO | | | [...] + + + | [facility] | [address] | [place] [address] | | | LAB-MICRO | | | [...] | | | | | performed at [facility] | | | | | | [facility] | | | | | | Laboratory | | | | + + + + + + + + | Specimen | + + | | + + + + + + + | Performing | Address | City/State/Zipcode | Phone Number | | Organization | | | | + + + + + | [facility] | [address] | [place] [address] | | | LAB-MICRO | | | [...] | | | | Test performed at [facility] | | | | | | [facility] | | | | | | Laboratory. | | | | + + + + + + + + | Specimen | + + | | + + + + + + + | Performing | Address | City/State/Zipcode | Phone Number | | Organization | | | | + + + + + | [facility] | [address] | [place] [address] | | | LAB-MICRO | | | [...] | | | | | performed at [facility] | | | | | | [facility] | | | | | | Laboratory. | | | | + + + + + + + + | Specimen | + + | | + + + + + + + | Performing | Address | City/State/Zipcode | Phone Number | | Organization | | | | + + + + + | [facility] | [address] | [place] [address] | | | LAB-MICRO | | | [...] + + + | [facility] | [address] | [place] [address] | | | LAB-MICRO | | | [...] | + + + + + | [facility] | [address] | [place] [address] | | | LAB-MICRO | | | [...] + + + | [facility] | [address] | [place] [address] | | | LAB-MICRO | | | [...] | | | | | performed at [facility] | | | | | | [facility] | | | | | | Laboratory | | | | + + + + + + + + | Specimen | + + | | + + + + + + + | Performing | Address | City/State/Zipcode | Phone Number | | Organization | | | | + + + + + | [facility] | [address] | [place] [address] | | | LAB-MICRO | | | [...] + + + | [facility] | [address] | [place] [address] | | | LAB-MICRO | | | [...] | | | | | performed at [facility] | | | | | | [facility] | | | | | | Laboratory. | | | | + + + + + + + + | Specimen | + + | | + + + + + + + | Performing | Address | City/State/Zipcode | Phone Number | | Organization | | | | + + + + + | [facility] | [address] | [place] [address] | | | LAB-MICRO | | | | + + + + + documented in this encounter Visit Diagnoses Not on filedocumented in this encounter"
--- OUTSIDE RECORDS SUMMARY | ~2020-03-28 | XMS | Encounter Summary ---
Demographics + + + | Address | [address] | | | [place] [address] | + + + | Home Phone [...] Team Providers + +------+ + | Care Court Operations Clerk Name | Role | Phone | + +------+ + PCP | Unavailable | + +------+ + Encounter Details +--------+ + + + + | Date | Type | Department | Care Team | Description | +--------+ + + + + | 03/19/ | Results | Registration [address] | Sophy, Faculty | | | 2007 | Only | [address] | [phone] | | | | | [address] Mailcode: [id number] | | | | | | [place], [place] | | | | | | [address] | | | | | | [phone] | | | +--------+ + + + [...] | | + +---------+--------+ + + | CT OUTSIDE FILMS | Imaging | Routin | | 03/19/2008 12:00 AM | | | | e | | PDT | + +---------+--------+ + + | GENERAL OUTSIDE | Imaging | Routin | | 03/19/2008 12:00 AM | | FILMS | | e | | PDT | + +---------+--------+ + + documented as of this encounter Visit Diagnoses Not on filedocumented in this encounter"
--- OUTSIDE RECORDS SUMMARY | ~2020-03-28 | XMS | Encounter Summary ---
Demographics + + + | Address | [address] | | | [place] [address] | + + + | Home Phone [...] Providers + +------+ + | Care Business Librarian Name | Role | Phone | [...] | | Karen Del Rosario NP | [facility] [address] | | | | | TRANSTHORACI | [address] | [address] | | | | | C | [address] | [address] | | | | | ECHOCARDIOGR | Rd | [place] | | | | | AM, ADULT | [place], [place] | [facility] | | | | | | [address] | floor | | | | | | | [facility] [place] | | | | | | | [address] | | | | | | | Phone: | | | | | | | [phone] | +--------+--------+ + + + + Diagnostic [...] | | | X-RAY | Karen E, BEHAVIOR INTERVENTIONIST | [address] | | | | | ASPIRATION | [address] | [address] | | | | | [place] INJECTION | [facility] | Mailcode: | | | | | MAJOR JOINT | Rd | [facility] | | | | | W/NEEDLE | [facility] [place] | for Health | | | | | PLCMT | [address] | and Healing, | | | | | | | Building 1, | | | | | | | 3rd Floor | | | | | | | [facility] [place] | | | | | | | [address] | | | | | | | Phone: | | | | | | | [phone] | | | | | | | Fax: | | | | | | | [phone] | +--------+--------+ + + + + Reason [...] | | | | | | | [address] | | | | | | | [address] | | | | | | | Jamie [facility] | | | | | | | [facility] | | | | | | | [place], [place] | | | | | | | [address] | | | | | | | Phone: | | | | | | | [phone] | +--------+--------+ + + + + Encounter [...] | 10/23/ | | Rose Ocampo | [place], [place] | | | 2010 | | (MNP/OLD [facility]) | [address] | | | | | [place], [place] | [phone] | | | | | [address] | | | | | | | Jillian Bee MD | | | | | | [address] | | | | | | [place], | | | | | | [place] [address] | | | | | | [phone] | | | | | | | | | | | | Tisha Figueroa FNP | | | | | | [address] | | | | | | [place], | | | | | | [place] [address] | | | | | | [phone] | | | | | | | | | | | | Rustam Duenas MD | | | | | | [address] | | | | | | [facility], | | | | | | [place] [address] | | | | | | [phone] | | | | | | | | | | | | Benson Cooper MD | | | | | | [address] [place] | | | | | | [address] [place], [place] | | | | | | [address] | | | | | | | | | | | | Kalyan Arias MD | | | | | | [address] | | | | | | [facility], | | | | | | [place] [address] | | | | | | [phone] | | | | | | | [...] might be different f rom the original. [facility] DEPARTMENT OF ORTHOPAEDICS & REHABILITATION INPATIENT HOSPITAL DISCHARGE SUMMARY & INTERDISCIPLINARY INSTRUCTIONS Patient: Chastity Galdamez CSN: [id number] Admission Date: 10/12/2010 Discharge Date: 10/22/2010 Attending Physician: Kalyan Arias MD PCP: Travis Cruz MD Service: [facility] Orthopaedics & Rehabilitation Diagnoses Principal Final [...] WBAT Discharge POLST completed No Destination: Destination: Nursing Home Facility Condition on Discharge Good Discharge Follow Up Provider and Clinic: Tesfaye Saenz, Orthopaedic Surgery . Appointment: Please call clinic to make appointment for 2 weeks after your surgery for sut ure/staple removal and wound check. Call [phone] to arrange appointment date and time. Outpatient antibiotics: [facility] referral has been made (for outpatient antibiotics). -While on outpatient antibiotics, weekly CBC/diff, CMP, ESR, & CRP should be checked, with results faxed to Dr. Teresa or Elvia SPENCE at [facility] clinic (fax #[phone]). Current Discharge Medication List START taking these [...] W-FE,OTHER MIN (CENTRUM ORAL) Take by mouth. [place]-3 Fatty Acids-Vitamin E (FISH OIL) 1,000 mg [...] administration instructions. - Call orthopedic clinic at [phone] if any persistent, localized swelling that does [...] and ask for the orthopaedic surgery resident employee relations specialist. Additional postop instructions/ What to expect: -Apply [...] feel that you will need more, call during business hours in order to get a new prescription. Please allow 48 hours for re fills to be processed. - Schedule II narcotics can NOT be called in to a pharmacy. Please arrange for someone to package pick up your prescription or allow additional time for [...] 2 weeks (or as previously scheduled). Call [phone] to confirm or schedul e this appointment. [...] Condition on Discharge: Improved Discharging Patient To: Nursing Home Facility Date and Time of Discharge Summary [...] + + + +---------+ + + | [place]-3 Fatty | Take by mouth. | | [...] 11 Date: 10/23/2010 Patient: CHASTITY Osei TALLY [id number] Interval Hx: Afebrile. Wants to go home. [...] to Dr. Teresa or Elvia SPENCE at [facility] clinic (fax #[phone]). -Dispo plan: pt requires 3 days of flagyl treatment for C. Diff before discharge to retirement facility. D/C to retirement facility today oster, Samuel Evangelista MD - 10/22/2010 7:24 AM PST Ortho Progress Note Hospital Day: 10 Date: 10/22/2010 Author: SAMUEL BOWEN MD Patient: CHASTITY Osei TALLY [id number] Interval Hx: Afebrile. WBC up yesterday and [...] Elvia Putnam PA at [facility] clinic (fax #[phone]). -Dispo plan: pt requires 3 days of flagyl treatment for C. Diff before discharge to skill ed nursing facility. Possible D/C to retirement facility today Samuel Montaño MD - 10/21/2010 7:16 AM PST Ortho Progress Note Hospital Day: 9 Date: 10/21/2010 Author: SAMUEL BOWEN MD Patient: CHASTITY GALDAMEZ [id number] Interval Hx: Afebrile overnight. Comfortable and without [...] Dr. Teresa or Elvia Putnam PA at [facility] clinic (fax #[phone]). -Dispo plan: pt requires 3 days of flagyl treatment for C. Diff before discharge to skill ed nursing facility. Plan to D/C to retirement facility on Saturday10/22/10. Lucero Petersen M D [...] kg/(m^2)FIO2 (%): 30 fraction of O2 (10/14/10 3545)O2 Delivery Device: None (room air) (10/20/10 8949) Intake/Output Summary (Last 24 hours) at 10/20/10 [...] care for this patient. LUCERO KNOX MD [address] Clinical Hospitalist Service [facility] DEPARTMENT: Hosp ([facility])- [phone] Place of Service: IP - [address] [facility] [id number] CPT: 69615 Subsequent Visit Exp Prob Foc/Mod Complexity 25 min I spent 25 minutes raen-en-oeag with this patient of which greater than [...] patient is discharged. Please notify [facility] clinic [phone] re: discharge date, where patient is going (i.e. home, SNF ) and home IV provider if applicable. [facility] Department of Infectious Disease Outpatient IV Antibiotic Therapy Clinic ([facility]) Pager ID: [phone] Mail Code F506 [place] [address] [facility] teaching note: Education and training for [...] PCP . I gave the patient my [facility] business card, and let them know that our assistant clinical director, Tonja susana Keller, will be contacting them [...] from antibiotics occur, we will ask the [facility] infusion agency to alter the dose of antibiotics, or even change the antibiotics. I expla ined that we will communicate patient's progress and plan with PCP, surgeon, and the home in [place]. I reviewed the possible complications PICC lines [...] care. I provided the patient with the [facility] welcome letter that reiterates the above teaching. I spent 25 minutes in education and training in patient self management for IV antibiotic a nd PICC line use with greater than 50% spent on counseling and/or coordination of care. [facility] DEPARTMENT: IDC INFECT DIS CONSULT - [id number] Place of Service: Inpatient Date of Service: 10/20/2010 CSN: [id number] Suggested Level of Care: 01254- Subsequent hosp care, 25 min Javier Bunn [...] the sural, saphenous, deep peroneal, superficial per ihcks, and tibial nerve distributions with no exceptions. [...] she may arrange timely follow up in [facility] clinic. While on outpatient antibiotics, weekly CBC/diff, CMP, ESR, & CRP should be checked, with results faxed to Dr. Teresa or Elvia SPENCE at [facility] clinic (fax #[phone]). -Please ensure there is a baseline CBC, CMP, ESR, and CRP prior to discharge.--ordered tod ay -Dispo plan: pt requires 3 days of flagyl treatment for C. Diff before discharge to [facility]. Plan to D/C to retirement facility on Saturday10/22/10. Lucero Petersen MD - [...] (pt does not want insulin coverage) (10/18/10 4640) Lab Results Component Value Date INR 1.07 [...] Prophylaxis: Per primary team. LUCERO KNOX MD Site Directorgearcase assembler Clinical Hospitalist Service [facility] Medicine Department of Medicine [facility] DEPARTMENT: Hosp ([facility])- [phone] Place of Service: - [id number] Modifiers:GC Resident Involved: No CPT: 88052 Subsequent Visit Exp Prob Foc/Mod Complexity 25 min I spent 25 minutes rxcs-wx-atpw with this patient of which greater than [...] Intake/Output Summary (Last 24 hours) at 10/19/10 0621 Last data filed at 10/19/10 0422 Gross [...] Prophylaxis: Per primary team. LUCERO KNOX MD Site Directorgearcase assembler Clinical Hospitalist Service Division of Hospital Medicine Department of Medicine [facility] DEPARTMENT: Hosp ([facility])- [phone] Place of Service: IP - Modifiers:GC Resident Involved: No CPT: 92268 Subsequent Visit Exp Prob Foc/Mod Complexity 25 min I spent 25 minutes avsg-gp-rqvi with this patient of which greater than [...] as well as aspirate LUCERO KNOX MD Site Directorgearcase assembler Clinical Hospitalist Service [facility] Medicine Department of Medicine [facility] EPIC DEPARTMENT: Hosp ([facility])- [phone] Place of Service: IP - 66827 Modifiers:GC Resident Involved: No CPT: 49179 Subsequent Visit Detailed/High complexity 35 min I spent 40 minutes bytu-cu-ojwr with this patient of which greater than [...] Cohen MD - 10/16/2010 9:36 PM PST [facility] ORTHOPAEDIC SURGERY POST OPERATIVE CHECK IDENTIFICATION: [...] consult. [facility]AT BLE xrays Jillian Farfan MD [facility] Department of Orthopaedics & Rehabilitation [address] [facility] Mail Code: OP31 [facility] [address] [email or web address] Pager: [phone] The above was formulated both independently and [...] immobile. Wearing Priscilla Hose. DAVID KNIGHT MD [facility] 6A Site Directorgearcase assembler Clinical Hospitalist Service [facility] DEPARTMENT: Hosp ([facility])- [phone] Place of Service: IP - [address] [facility] [id number] Modifiers:GC Resident Involved: No Service: Ortho Suggested CPT: 20309 Subsequent Visit Exp Prob Foc/Mod Complexity 25 min I spent more than 30 minutes xrhv-pb-apwn with the patient of which greater than 50% was sp ent co-ordinating care acob, David Evangelista MD - 10/15/2010 7:57 AM PST CLINICAL HOSPITALIST SERVICE ([facility])-PROGRESS NOTE HOSPITAL DAY: 3 Author: DAVID [...] she is quite immobile. DAVID KNIGHT MD [address] Site Directorgearcase assembler Clinical Hospitalist Service [facility] DEPARTMENT: Hosp ([facility])- [phone] Place of Service: - [facility] [phone] Modifiers:GC Resident Involved: No Service: Primary Suggested CPT: 27203 Subsequent Visit Detailed/High complexity 35 min I spent more than 35 minutes yvgt-xi-vbir with the patient of which greater than [...] [facility] | [address] | [place], [place] | | | THERAPY | [address] | [address] | | + + + + + [...] + | [facility] | [address] | [place] [address] | | | PATHOLOGY | [address] [...] + + | [facility] DEPARTMENT OF | [address] | [place] [address] | | | PATHOLOGY | [address] [...] + | [facility] | [address] | [place] [address] | | | PATHOLOGY | [address] [...] + + | [facility] | [address] [facility] | [place], [place] | | | THERAPY | [address] | [address] | | + + + + + [...] [facility] | [address] | [place], [place] | | | SUPRIYA POINT OF CARE | [address] | [address] | | | TESTS | | | [...] | + + + + + | [facility] DEPARTMENT | [address] | [place] [address] | | | PATHOLOGY | [address] [...] DEPARTMENT OF | [address] | [place] [address] | | | PATHOLOGY | [address] [...] | + + + + + | [facility] DEPARTMENT | [address] | [place] [address] | | | PATHOLOGY | [address] [...] + + + | [facility] | [address] | [place], [place] | | | THERAPY | [address] | [address] | | + + + + + [...] | + + + + + | [facility] DEPARTMENT OF | [address] | [place] [address] | | | PATHOLOGY | [address] [...] + | [facility] | [address] | [place] [address] | | | PATHOLOGY | [address] [...] + | [facility] DEPARTMENT OF | [address] | [place] [address] | | | PATHOLOGY | [address] [...] Bunch, | | | | | | HYBRID TECHNOLOGIST | | | | | | | | | | | | | | | | | | | | | | | | | | | | | |Electronically Signed by: Angelo Bunch HYBRID TECHNOLOGIST | | | | + + + + +-------- ------+ + + | Specimen | + + | | + + + + + + + | Performing | Address | City/State/Zipcode | Phone Number | | Organization | | | | + + + + + | [facility] | [address] | [place], [place] | | | THERAPY | [address] | [address] | | + + + + + [...] + + | [facility] | [address] [facility] | [place], [place] | | | THERAPY | [facility] | [address] | | + + + + + [...] [facility] | [address] | [place], [place] | | | THERAPY | [address] | [address] | | + + + + + [...] [facility] | REGIONAL | [place] [address] | LABORATORY | | [place] [address] | | + + + + + + + + | Performing | Address | City/State/Zipcode | Phone Number | | Organization | | | | + + + + + | [facility] | [address] | [place] [address] | | | LABORATORY | | | [...] DEPARTMENT OF | [address] | [place] [address] | | | PATHOLOGY | [address] [...] DEPARTMENT OF | [address] | [place] [address] | | | PATHOLOGY | [address] [...] + | [facility] | [address] | [place] [address] | | | PATHOLOGY | [address] [...] + + + + + | [facility] | [address] | [place] [address] | | | LABORATORY | | | [...] DEPARTMENT OF | [address] | [place] [address] | | | PATHOLOGY | [address] [...] RESPIRATORY | Oxygen device on | | [facility] | | | CARE | standby, nasal canula. | | RESPIRATORY | | | | Electronically | | THERAPY | | | | Signed by: Cha Miles, | | | | | | HYBRID TECHNOLOGIST | | | | | | | [...] [facility] | [address] | [place], [place] | | | THERAPY | [address] | [address] | | + + + + + [...] DEPARTMENT OF | [address] | [place] [address] | | | PATHOLOGY | [address] [...] + | [facility] | [address] | [place] [address] | | | PATHOLOGY | [address] [...] + | [facility] | [address] | [place] [address] | | | PATHOLOGY | [address] [...] Long 1cm Trimmed Lot # (or Sticker): [id number] INSERTION SITE: | | | - Cephalic [...] CXR [place]: [place] [id number] | | | Assisted by: na | [...] CATHETERProduct Name: BoogieConstruction: | | Single4 Fr60cm Nnjl5mn TrimmedLot # (or Sticker): [id number] SITE: - | | CephalicLeftLocal anesthetic used: [...] by CXRPlaced by: Anabella Ramirez RN IVT [id number] | | by: na | |PICC CATHETER | |Product Name: Boogie | |Construction: Single | |4 Fr | |60cm Long | |1cm Trimmed | |Lot # (or Sticker): [id number] | | | |INSERTION SITE: - Cephalic [...] | |Placed by: [place] [id number] | |Assisted by: na | + + X-RAY PORTABLE CHEST 1 VIEW (10/19/2010 10:45 AM PST) + + + + + + | Component | Value | Ref Range | Performed | Pathologist | | | | | At | Signature | + + + + + + | X-RAY | STUDY: [place] CHEST 1 VIEW | | | | [...] | | + +---------+ + + | [facility] DEPARTMENT OF | | | | [...] Guardado, | | | | | | HYBRID TECHNOLOGIST | | | | + + + + + + + + | Specimen | + + | | + + + + + + + | Performing | Address | City/State/Zipcode | Phone Number | | Organization | | | | + + + + + | [facility] | [address] | [place], [place] | | | THERAPY | [address] | [address] | | + + + + + [...] + | [facility] | [address] | [place] [address] | | | PATHOLOGY | [address] [...] DEPARTMENT OF | [address] | [place] [address] | | | PATHOLOGY | [address] [...] | + + + + + | [facility] DEPARTMENT | [address] | [place] [address] | | | PATHOLOGY | [address] [...] [facility] | [address] | [place], [place] | | | THERAPY | [address] | [address] | | + + + + + [...] [facility] | [address] | [place], [place] | | | SUPRIYA POINT OF CARE | [address] | [address] | | | TESTS | | | [...] + + | [facility] DEPARTMENT OF | [address] | [place] [address] | | | PATHOLOGY | [address] [...] + + + | [facility] ([address] [facility]) [facility] | REGIS | | [place] [address] [facility] [facility] | REGIONAL | | [place] [address] | LAB-MICRO | + + + + + + + + | Performing | Address | City/State/Zipcode | Phone Number | | Organization | | | | + + + + + | [facility] | [address] | [place] [address] | | | LAB-MICRO | | | [...] | + + + + + | [facility] DEPARTMENT | [address] | [place] [address] | | | PATHOLOGY | [address] [...] (H) | 60 - 99 mg/dL | [facility] - | | | GLUCOSE, | [...] [facility] | [address] | [place], [place] | | | [facility] | [address] | [address] | | | TESTS | | | [...] [facility] | [address] | [place], [place] | | | JADA EPPS OF CARE | [address] | [address] | | | TESTS | | | [...] | + + + + + | [facility] DEPARTMENT OF | [address] | [place] [address] | | | PATHOLOGY | [address] [...] + | [facility] | [address] | [place] [address] | | | PATHOLOGY | [address] [...] + | [facility] | [address] | [place] [address] | | | PATHOLOGY | [address] [...] + + | [facility] | [address] [facility] | [place], [place] | | | THERAPY | [address] | [address] | | + + + + + [...] + + | [facility] | [address] | [place], [place] | | | THERAPY | [address] | [address] | | + + + + + [...] [facility] | [address] | [place], [place] | | | THERAPY | [address] | [address] | | + + + + + [...] | | + +---------+ + + | [facility] DEPARTMENT OF | | | | [...] consider | | | intensifying therapy [facility] ([facility]) | | | [facility] [address] [facility] | | | [place] [address] | | + + + + + + + + | Performing | Address | City/State/Zipcode | Phone Number | | Organization | | | | + + + + + | [facility] | [address] | [place] [address] | | | LABORATORY | | | [...] [facility] | [address] | [place], [place] | | | THERAPY | [address] | [address] | | + + + + + [...] [facility] | [address] | [place], [place] | | | THERAPY | [address] | [address] | | + + + + + [...] [facility] | [address] | [place], [place] | | | SUPRIYA POINT OF CARE | [address] | [address] | | | TESTS | | | [...] [facility] | [address] | [place], [place] | | | JADA EPPS OF CARE | [address] | [address] | | | TESTS | | | [...] - [facility] | [address] | [place], [place] | | | [facility] | [facility] | [address] | | | TESTS | | | [...] [facility] | [address] | [place], [place] | | | THERAPY | [address] | [address] | | + + + + + [...] + | [facility] | [address] | [place] [address] | | | PATHOLOGY | [address] [...] | + + + + + | [facility] DEPARTMENT OF | [address] | [place] [address] | | | PATHOLOGY | [address] [...] | + + + + + | [facility] DEPARTMENT OF | [address] | [place] [address] | | | PATHOLOGY | [address] [...] DEPARTMENT OF | [address] | [place] [address] | | | PATHOLOGY | [address] [...] | + + + + + | [facility] DEPARTMENT OF | [address] | [place] [id number] | | | PATHOLOGY | [address] [...] + + + | [facility] | [address] | [place] [address] | | | LAB-MICRO | | | [...] + + + | [facility] | [address] | [place] [address] | | | LAB-MICRO | | | [...] Lab) | | | | | | [facility] [address] | | | | | | [address] | | [address] | | | | | | [place] [address] | | | | + + + + + + + + | Specimen | + + | | + + + + + + + | Performing | Address | City/State/Zipcode | Phone Number | | Organization | | | | + + + + + | [facility] | [address] | [place] [address] | | | LAB-MICRO | | | [...] + + + | [facility] | [address] | [place] [address] | | | LAB-MICRO | | | [...] Lab) | | | | | | [facility] | | | | | | [address] | | [address] | | | | | | [place] [address] | | | | + + + + + + + + | Specimen | + + | | + + + + + + + | Performing | Address | City/State/Zipcode | Phone Number | | Organization | | | | + + + + + | [facility] | [address] | [place] [address] | | | LAB-MICRO | | | [...] + + + | [facility] | [address] | [place] [address] | | | LAB-MICRO | | | [...] | | | | | | [facility] ([facility]) | | | | | | [facility] | | | | | | [facility] | | | | | | [address] [facility] | | | | | | [place], | | | | | | [place] [address] | | | | + + + + + + + + | Specimen | + + | | + + + + + + + | Performing | Address | City/State/Zipcode | Phone Number | | Organization | | | | + + + + + | [facility] | [address] | [place] [address] | | | LAB-MICRO | | | [...] Lab) | | | | | | [facility] | | | | | | [address] | | | | | [address] | | | | | | [place] [address] | | | | + + + + + + + + | Specimen | + + | | + + + + + + + | Performing | Address | City/State/Zipcode | Phone Number | | Organization | | | | + + + + + | [facility] | [address] | [place] [address] | | | LAB-MICRO | | | [...] + + + | [facility] | [address] | [place] [address] | | | LAB-MICRO | | | [...] + + + | [facility] | [address] | [place] [address] | | | LAB-MICRO | | | [...] Lab) | | | | | | [facility] [address] | | | | | | [address] | | [address] | | | | | | [place] [address] | | | | + + + + + + + + | Specimen | + + | | + + + + + + + | Performing | Address | City/State/Zipcode | Phone Number | | Organization | | | | + + + + + | [facility] | [address] | [place] [address] | | | LAB-MICRO | | | [...] + + + | [facility] | [address] | [place] [address] | | | LAB-MICRO | | | [...] + + + + + | [facility] | [address] [facility] [address] [facility] [address] | [place] [address] | | | LAB-MICRO | | | [...] [facility] | | | | | | [facility] | | | | | | [address] | | | | | | [place], | | | | | | [place] [address] | | | | + + + + + + + + | Specimen | + + | | + + + + + + + | Performing | Address | City/State/Zipcode | Phone Number | | Organization | | | | + + + + + | [facility] | [address] | [place] [place] [address] | | | LAB-MICRO | | | [...] + + + | [facility] | [address] | [place] [address] | | | LAB-MICRO | | | [...] + + + | [facility] | [address] | [place] [address] | | | LAB-MICRO | | | [...] Lab) | | | | | | [facility] | | | | | | [address] | | [address] | | | | | | [place] [address] | | | | + + + + + + + + | Specimen | + + | | + + + + + + + | Performing | Address | City/State/Zipcode | Phone Number | | Organization | | | | + + + + + | [facility] | [address] | [place] [address] | | | LAB-MICRO | | | [...] + + + | [facility] | [address] | [place] [address] | | | LAB-MICRO | | | [...] + + + + + | [facility] | [address] | [place] [address] | | | LAB-MICRO | | | [...] | | | | | | [facility] | | | | | | [address] | | | | | [address] | | | | | | [place] [address] | | | | + + + + + + + + | Specimen | + + | | + + + + + + + | Performing | Address | City/State/Zipcode | Phone Number | | Organization | | | | + + + + + | [facility] | [address] | [place] [address] | | | LAB-MICRO | | | [...] [facility] | | | | | | [address] | | | | | | [place], | | | | | | [place] [address] | | | | + + + + + + + + | Specimen | + + | | + + + + + + + | Performing | Address | City/State/Zipcode | Phone Number | | Organization | | | | + + + + + | [facility] | [address] | [place] [address] | | | LAB-MICRO | | | [...] + + + | [facility] | [address] | [place] [address] | | | LAB-MICRO | | | [...] + + + + + | [facility] | [address] | [place] [address] | | | LAB-MICRO | | | [...] Lab) | | | | | | [facility] | | | | | | [address] | | | [address] | | | | | | [place] [address] | | | | + + + + + + + + | Specimen | + + | | + + + + + + + | Performing | Address | City/State/Zipcode | Phone Number | | Organization | | | | + + + + + | [facility] | [address] | [place] [address] | | | LAB-MICRO | | | [...] + + + | [facility] | [address] | [place] [address] | | | LAB-MICRO | | | [...] RLB | | | | | | ([address] [facility]) | | | | | | [facility] | | | | | | [address] | | | | | | [address] | | | | | | [place] [address] | | | | + + + + + + + + | Specimen | + + | | + + + + + + + | Performing | Address | City/State/Zipcode | Phone Number | | Organization | | | | + + + + + | [facility] | [address] | [place] [address] | | | LAB-MICRO | | | [...] + + + | [facility] | [address] | [place] [address] | | | LAB-MICRO | | | [...] NW | | | | | | [address] | | | | | | [place], | | | | | | [place] [address] | | | | + + + + + + + + | Specimen | + + | | + + + + + + + | Performing | Address | City/State/Zipcode | Phone Number | | Organization | | | | + + + + + | [facility] | [address] | [place] [address] | | | LAB-MICRO | | | [...] + + + | [facility] | [address] | [place] [address] | | | LAB-MICRO | | | [...] + + + | [facility] | [address] | [place] [address] | | | LAB-MICRO | | | [...] Lab) | | | | | | [facility] | | | | | | [address] | | | [address] | | | | | | [place] [address] | | | | + + + + + + + + | Specimen | + + | | + + + + + + + | Performing | Address | City/State/Zipcode | Phone Number | | Organization | | | | + + + + + | [facility] | [address] | [place] [address] | | | LAB-MICRO | | | [...] + + + | [facility] | [address] | [place] [address] | | | LAB-MICRO | | | [...] RLB | | | | | | ([address] [facility]) | | | | | | [facility] | | | | | | [address] | | | | | | [address] | | | | | | [place] [address] | | | | + + + + + + + + | Specimen | + + | | + + + + + + + | Performing | Address | City/State/Zipcode | Phone Number | | Organization | | | | + + + + + | [facility] | [address] | [place] [address] | | | LAB-MICRO | | | [...] | + + + + + | [facility] | [address] | [place] [address] | | | LAB-MICRO | | | [...] [facility] | | | | | | [facility] | | | | | | [address] | | | | | | [place], | | | | | | [place] [address] | | | | + + + + + + + + | Specimen | + + | | + + + + + + + | Performing | Address | City/State/Zipcode | Phone Number | | Organization | | | | + + + + + | [facility] | [address] | [place] [address] | | | LAB-MICRO | | | [...] + + + + + | [facility] | [address] | [place] [address] | | | LAB-MICRO | | | [...] [facility] | [address] | [place] [address] | | | PATHOLOGY | [address] [...] + | [facility] | [address] | [place] [address] | | | PATHOLOGY | [address] [...] [facility] | REGIONAL | | [place] [address] | LABORATORY | | [place] [address] | | + + + + + + + + | Performing | Address | City/State/Zipcode | Phone Number | | Organization | | | | + + + + + | [facility] | [address] | [place] [address] | | | LABORATORY | | | [...] + + + | RLB ([address] [facility]) | [facility] | | [facility] [address] | REGIONAL | | [place] [address] | LABORATORY | + + + + + + + + | Performing | Address | City/State/Zipcode | Phone Number | | Organization | | | | + + + + + | [facility] | [address] | [place] [address] | | | LABORATORY | | | [...] [facility] | [address] | [place], [place] | | | THERAPY | [address] | [address] | | + + + + + OPERATION RECORD (10/16/2010 12:00 AM PST) + + + | Narrative | Performed At | + + + | [id number] | | | [id number] [facility] | | | CHAST[place] Osei [id number] Date: | | | 10/16/2010 Attending Surgeon: | | | Kalyan Arias M.D. Lpn Instructor(s): | | | Raymond Valdes M.D. Preoperative [...] She presented as an ED transfer to [facility] approximately 3 days | | | prior [...] | multimodal DVT prophylaxis. Kalyan Arias M.D. [facility] / | | | [id number] / [id number] / [id number] / | | | | | + + + + + | Procedure Note | + + | Kalyan Arias MD - 10/17/2010 9:21 AM PST [id number] | | [id number] [facility] | | [id number] Date: 10/16/2010 Attending Surgeon: Kalyan | | Ortiz Arias M.D. Lpn Instructor(s): Raymond Valdes M.D. Preoperative | | Diagnosis(es):1. [...] who is almost 3 years out from [facility] total hip arthroplasty. She had a | [...] She presented as an ED transfer to [facility] approximately 3 | | days priorto [...] aerobic cultures and blood culture bottles per [facility] biopsy protocol. The fascia | | was [...] | will receivemultimodal DVT prophylaxis. Kalyan Arias M.D.[facility] / [id number] / [id number] | | / [id number] / T: 10/16/2010 | |minimally symptomatic for her, and she did well with the arthroplasty | |itself. She presented as an ED transfer to [facility] approximately 3 days prior | |to [...] | | | |Kalyan Arias M.D. | |[facility] / | |[id number] / [id number] / [id number] / | | | | | | [...] [facility] | [address] | [place], [place] | | | [facility] [place] | [facility] | [address] | | | TESTS | | | [...] + | [facility] | [address] | [place] [address] | | | PATHOLOGY | [address] [...] + + + + | PRODUCT | [id number] | | [facility] | | | UNIT [...] + + + + | BLOOD | [address] | | [facility] | | | PRODUCT [...] DEPARTMENT OF | [address] | [place] [address] | | | PATHOLOGY | [address] [...] + + + + | PRODUCT | [id number] | | [facility] | | | UNIT [...] + + + + | BLOOD | 46947 | | [facility] | | | PRODUCT [...] + | [facility] | [address] | [place] [address] | | | PATHOLOGY | [address] [...] JIMY | [address] | [place], [place] | | | [facility] [place] | [address] | [address] | | | TESTS | | | [...] JIMY | [address] | [place], [place] | | | [facility] [place] | [facility] | [address] | | | TESTS | | | | + + + + + CAPILLARY BLOOD GLUCOSE, POC (10/14/2010 11:02 PM PST) + +---------+ + + + | Component | Value | Ref Range | Performed | Pathologist | | | | | At | Signature | + +---------+ + + + | BLOOD | 142 (H) | 60 - 99 mg/dL | [facility] - | | | GLUCOSE, | [...] AHN | [address] | [place], [place] | | | SUPR[facility] POINT OF CARE | [address] | [address] | | | TESTS | | | [...] | | + +---------+ + + | [facility] DEPARTMENT OF | | | | [...] [facility] | [address] | [place], [place] | | | THERAPY | [address] | [address] | | + + + + + [...] view image for the detailed interpretation from [facility] results. | CARDIOLOGY | + + + + + + + + | Performing | Address | City/State/Zipcode | Phone Number | | Organization | | | | + + + + + | [facility] | [address] | [place], [place] | | | CARDIOLOGY | [address] | [address] | | + + + + + [...] + + + + + | [facility] | [address] | [place] [address] | | | LAB-MICRO | | | [...] DEPARTMENT OF | [address] | [place] [address] | | | PATHOLOGY | [address] [...] + + | [facility] | [address] | [place] [address] | | | PATHOLOGY | [address] [...] + | [facility] | [address] | [place] [address] | | | PATHOLOGY | [address] [...] Lab) | | | | | | [facility] | | | | | | [address] | | | [address] | | | | | | [place] [address] | | | | + + + + + + + + | Specimen | + + | | + + + + + + + | Performing | Address | City/State/Zipcode | Phone Number | | Organization | | | | + + + + + | [facility] | [address] | [place] [address] | | | LAB-MICRO | | | [...] DEPARTMENT OF | [address] | [place] [address] | | | PATHOLOGY | [address] [...] DEPARTMENT OF | [address] | [place] [address] | | | PATHOLOGY | [address] [...] + | [facility] | [address] | [place] [address] | | | PATHOLOGY | [address] [...] SOURCE BODY | Right Forearm | | SATCY | | | SITE | | | [...] + + + | [facility] | [address] | [place] [address] | | | LAB-MICRO | | | [...] + + + | [facility] | [address] | [place] [address] | | | LAB-MICRO | | | [...] | | + +---------+ + + | [facility] DEPARTMENT OF | | | | [...] DEPARTMENT OF | [address] | [place] [address] | | | PATHOLOGY | [address] [...] DEPARTMENT OF | [address] | [place] [address] | | | PATHOLOGY | [address] [...] DEPARTMENT OF | [address] | [place] [address] | | | PATHOLOGY | [address] [...] + + + + + | [facility] | [address] | [place] [address] | | | LAB-MICRO | | | [...] + | [facility] | [address] | [place] [address] | | | PATHOLOGY | [address] [...] | + + + + + | [facility] DEPARTMENT OF | [address] | [place] [address] | | | PATHOLOGY | [address] [...] DEPARTMENT OF | [address] | [place] [address] | | | PATHOLOGY | [address] [...] + | [facility] | [address] | [place] [address] | | | PATHOLOGY | [address] [...] [facility] | REGIONAL | | [place] [address] | LABORATORY | | [place] [address] | | + + + + + + + + | Performing | Address | City/State/Zipcode | Phone Number | | Organization | | | | + + + + + | [facility] | [address] | [place] [address] | | | LABORATORY | | | [...] | | + +---------+ + + | [facility] DEPARTMENT OF | | | | [...]
--- OUTSIDE RECORDS SUMMARY | ~2020-03-28 | XMS | Encounter Summary ---
Demographics + + + | Address | [address] | | | [place] [address] | + + + | Home Phone [...] Team Providers + +------+ + | Care Glass Blower Helper Name | Role | Phone | [...] | | | | | [address] | | | | | | [place], [place] | | | | | | [address] | | | | | | [phone] | | | +--------+ + + + [...] [place] | | | | | | [address] | | | | | | | | +--------+---------+ + + + documented as of this encounter Visit Diagnoses Not on filedocumented in this encounter
--- OUTSIDE RECORDS SUMMARY | ~2020-03-28 | XMS | Encounter Summary ---
Demographics + + + | Address | [address] | | | [place] [address] | + + + | Home Phone [...] Team Providers + +------+ + | Care Truck Packer Name | Role | Phone | + +------+ + PCP | Unavailable | + +------+ + Encounter Details +--------+ + + + + | Date | Type | Department | Care Team | Description | +--------+ + + + + | 09/14/ | Results | | Other, Faculty | | | 2002 | Only | | [phone] | | +--------+ + + + + [...] + | Ordered by JEFERSON CRONIN, . [id number] Patient unavailable, | | | specimen not obtained | | + + + + + + + + | Performing | Address | City/State/Zipcode | Phone Number | | Organization | | | | + + + + + | [facility] | [address] | [place] [address] | | | LABORATORY | | | [...] + | Ordered by JEFERSON CRONIN JR. [id number] Patient unavailable, | [facility] | | specimen not obtained | DEPARTMENT OF | | | PATHOLOGY | + + + + + + + + | Performing | Address | City/State/Zipcode | Phone Number | | Organization | | | | + + + + + | [facility] | [address] | [place] [address] | | | PATHOLOGY | [address] | | | + + + + + | [facility] | [address] | [place] [address] | | | PATHOLOGY | [address] [...] + | Ordered by JEFERSON CRONIN JR. [id number] Staff or dialysis draw | [facility] | | required. | DEPARTMENT OF | | | PATHOLOGY | + + + + + + + + | Performing | Address | City/State/Zipcode | Phone Number | | Organization | | | | + + + + + | [facility] | [address] | [place] [address] | | | PATHOLOGY | [address] | | | + + + + + | [facility] | [address] | [place] [address] | | | PATHOLOGY | [address] [...] | + + + + + | [facility] | [address] | [place] [address] | | | PATHOLOGY | [address] | | | + + + + + | [facility] | [address] | [place] [address] | | | PATHOLOGY | [address] [...] | + + + + + | [facility] | [address] | [place] [address] | | | PATHOLOGY | [address] | | | + + + + + | [facility] OF | [address] | [place] [address] | | | PATHOLOGY | [address] | | | + + + + + documented in this encounter Visit Diagnoses Not on filedocumented in this encounter"
--- OUTSIDE RECORDS SUMMARY | ~2020-03-28 | XMS | Encounter Summary ---
Demographics + + + | Address | [address] | | | [place] [address] | + + + | Home Phone [...] Team Providers + +------+ + | Care Underwear Cutter Name | Role | Phone | [...] of this encounter Progress Notes Interface, Civil Cad Tech In - 08/31/2006 1:03 AM PSTCLINIC DATE: [...] more. PHYSICAL EXAMINATION: She ambulates with a xsqmciif-co-paqnpa right coxalgic gait leaning over the right [...] her primary care physician. Lloyd Garcia M.D. Railroad Inspector, Orthopedics and Rehabilitation / [id number] / [id number] / [id number] / 79734 C: 10/23/1999 kavita cc: Helio Noland M.D. [facility] [address] [address] [facility] Orthopedics Rehabilitation [address], [address] [place] documented in this encounter Plan of Treatment Not on filedocumented as of this encounter Visit Diagnoses Not on filedocumented in this encounter"
--- OUTSIDE RECORDS SUMMARY | ~2020-03-28 | XMS | Encounter Summary ---
Demographics + + + | Address | [address] | | | [place] [address] | + + + | Home Phone [...] Providers + +------+ + | Care Pharmaceutical Operator Name | Role | Phone | + +------+ + PCP | Unavailable | + +------+ + Encounter Details +--------+ + + + + | Date | Type | Department | Care Team | Description | +--------+ + + + + | 01/29/ | Hospital | [facility] | Helio Ahn | | | 2000 | Encounter | MED CTR SLEEP | MD Candie [address] | | | | | CENTER [address] | [address] | | | | | [place] | [place] [address] | | | | | [address] | [phone] | | | | | [phone] | | | +--------+ + + + [...] [place] | | | | | | [address] | | | | | | | | +--------+---------+ + + + documented as of this encounter Visit Diagnoses Not on filedocumented in this encounter"
--- OUTSIDE RECORDS SUMMARY | ~2020-03-28 | XMS | Encounter Summary ---
Demographics + + + | Address | [address] | | | [place] [address] | + + + | Home Phone | | + + + | Preferred Language | Unknown | + + + | Marital Status | | + + + | Tenriism Affiliation | 1076 | + + + [...] Team Providers + +------+ + | Care Tinner Helper Name | Role | Phone | + +------+ + | Karli Hammonds | PCP | | | MD | | | + +------+ + Reason for Visit + +--------+ + | Reason | Onset | Comments | | | Date | | + +--------+ + | Appointment | 10/06/ | | | | 2012 | | + +--------+ + Encounter Details +--------+ + + + + | Date | Type | Department | Care Team | Description | +--------+ + + + + | 10/06/ | Telephone | [facility] | Augie Valdivia MD | Appointment | | 2012 | | GASTROENTEROLOGY | [address], [place] | | | | | [address] | [address] [place], [place] | | | | | [address] [place], [place] | [address] | | | | | [address] | | | | | | [phone] | | | +--------+ + + + [...] Telephone Encounter - Pearl Dia RN - 10/06/2012 11:22 AM PSTRead patient note f rom referrals regarding call to [facility] and withdrawing our request. elephone Encounter - Lupe Sinha - 10/06/19 13 10:41 AM PSTPatient called and said it was urgent that the nurse call her insurance and dorian blackman her appointment for 10/24. Please call patient to let her know it's been taken care of . documented in this encounter Plan of Treatment +--------+---------+ + + + | Date | Type | Specialty | Care Team | Description | +--------+---------+ + + + | 05/23/ | Office | Pain Medicine | Xiang Sepulveda, | | | 2019 | Visit | | DO [address] | | | | | | [place] | | | | | | [address] | | | | | | | | +--------+---------+ + + + documented as of this encounter Visit Diagnoses Not on filedocumented in this encounter"
--- OUTSIDE RECORDS SUMMARY | ~2020-03-28 | XMS | Encounter Summary ---
Demographics + + + | Address | [address] | | | [place] [address] | + + + | Home Phone [...] Team Providers + +------+ + | Care Oncology Social Worker Name | Role | Phone | [...] as of this encounter Progress Notes Interface, Sheet Manager In - 09/15/2006 5:11 AM PSTCLINIC DATE: [...] M.D. Lloyd Garcia MD [email or web address] C: 04/26/99 [facility] cc: Matthew Garcia MD [address] [place], [place] [address]Eragtiolildjfe signed by Interface, Sheet Manager In at 09/15/2006 5:11 AM PSTInterface, Sheet Manager In - 09/13/2006 3:12 AM PSTCLINIC DATE: [...] evaluation and treatment recommendations. Lloyd Garcia M.D., Process Chemist, Orthopedics and Rehabilitation [email or web address] Electronically signed by Bill, Sheet Manager In at 1 11/14/2005 3:12 AM PSTdocumented in this encounter Plan of Treatment Not on filedocumented as of this encounter Visit Diagnoses Not on filedocumented in this encounter"
--- OUTSIDE RECORDS SUMMARY | ~2020-03-28 | XMS | Encounter Summary ---
Demographics + + + | Address | [address] | | | [place] [address] | + + + | Home Phone [...] + +------+ + | Care Senior Quality Assurance Specialist Name | Role | Phone | [...] | Transcriptions | + + | Interface, Teletype Technician In - 09/19/2005 9:05 PM PST Date: | | 10/01/2003Attending Surgeon: Lloyd Garcia M.D.Hand Ii Blocker(s): | | Benson Boone M.D.Preoperative Diagnoses:Right hip [...] cheilectomy on July | | 2002 via [facility]. It was complicated by greater trochanter hardware [...] Boone, | | Haleigh Garcia M.D.RT / [id number] / [id number] / [id number] / [id number]: 10/01/2003T: 10/02/2003 | |2002, was demonstrating that [...] | | | |RT / HS | |[id number] / [id number] / [id number] / [id number] | | | | | + + documented in this encounter Visit Diagnoses Not on filedocumented in this encounter"
--- OUTSIDE RECORDS SUMMARY | ~2020-03-28 | XMS | Encounter Summary ---
Demographics + + + | Address | [address] | | | [place] [address] | + + + | Home Phone [...] Team Providers + +------+ + | Care Termite Technician Name | Role | Phone | + +------+ + PCP | Unavailable | + +------+ + Encounter Details +--------+ + + + + | Date | Type | Department | Care Team | Description | +--------+ + + + + | 07/27/ | Digital Librarian | Orthopaedics at | Tesfaye Saenz | Osteoarthritis of | | 2007 | | [facility] [address] | MEGAN Evangelista | Hip; Hip Pain | | | | [address] | | | | | | Mailcode: [id number] | | | | | | [facility] | | | | | | [place], [place] | | | | | | [address] | | | | | | [phone] | | | +--------+ + + + [...] | + +---------+ + + | [facility] DEPARTMENT OF | | | | | [...]
--- OUTSIDE RECORDS SUMMARY | ~2020-03-28 | XMS | Encounter Summary ---
Demographics + + + | Address | [address] | | | [place] [address] | + + + | Home Phone [...] Providers + +------+ + | Care Drafter Seismograph Name | Role | Phone | + [...] | | | | | | [facility] | | | | | | [place], [place] | | | | | | [address] | | | | | | [phone] | | | +--------+ + + + [...] X-RAY HIP 2 | Med Rec No: [id number] | | | | | VIEWS | Name: | | | | | RIGHT W/ | SHELBY GALDAMEZ C | | | | | PELVIS 1 | Birthday: 1960 | | | | | VIEW | Sex: F | | | | | | Alias:Patient Location: | | | | | | [id number]: Outpatient | | | | | | [...] # | | | | | | [id number]:PELVIS | | | | | | ONE [...]
--- OUTSIDE RECORDS SUMMARY | ~2020-03-28 | XMS | Encounter Summary ---
Demographics + + + | Address | [address] | | | [place] [address] | + + + | Home Phone [...] Team Providers + +------+ + | Care Childcare Attendant Name | Role | Phone | + +------+ + | Travis Mcginnis MD | PCP | | + +------+ + Encounter Details +--------+ + + + + | Date | Type | Department | Care Team | Description | +--------+ + + + + | 10/14/ | Results | LAB REFERRED TESTS | Other, Faculty | | | 2010 | Only | [address] [facility] | [phone] | | | | | [address] | | | | | | [place] | | | | | | [address] | | | +--------+ + + + [...] + + | [facility] | [address] | [place], [place] | | | CARDIOLOGY | [address] | [address] | | + + + + + documented in this encounter Visit Diagnoses Not on filedocumented in this encounter"
--- OUTSIDE RECORDS SUMMARY | ~2020-03-28 | XMS | Encounter Summary ---
Demographics + + + | Address | [address] | | | [place] [address] | + + + | Home Phone [...] Providers + +------+ + | Care Color Depositing Machine Tender Name | Role | Phone | + +------+ + | Marta Jenkins [employer] | PCP | | + +------+ + [...] | Jamie Mailcode: [id number] [place], | | | | | [place], [place] | [place] [address] | | | | | [address] | | | | | | [phone] | | | +--------+ + + + [...]
--- OUTSIDE RECORDS SUMMARY | ~2020-03-28 | XMS | Encounter Summary ---
Demographics + + + | Address | [address] | | | [place] [address] | + + + | Home Phone | | + + + | Preferred Language | Unknown | + + + | Marital Status | | + + + | Islam Affiliation | 1076 | + + + | Race | Unknown | + + + | Ethnic Group | Unknown | + + + Author + + + | Author | [facility] | | | and [place] | + + + | Organization | [facility] | | | [...] Team Providers + +------+ + | Care Therapeutic Consultant Name | Role | Phone | [...] + + | 07/31/ | Telephone | [facility] | Xiang Sepulveda, | Other (Appointment | | 2019 | | [facility] | DO [address] | note ) | | | | DOLOROLOGY [address] | [place], [place] | | | | | [address] | [address] | | | | | [place], [place] | | | | | | [address] | | | | | | [phone] | | | +--------+ + + + [...] Miscellaneous Notes Telephone Encounter - Melyssa Ott, Icu Registered Nurse - 07/31/2019 11:07 AM Yuly RHODES called patient and left a voicemail to return my call. elephone Encounter - Mihaela Fulton - 07/31/2019 10:27 AM PDTShelby, is calling regarding Other (Appointment not e ) and would like a call back. Additional Call Details: Requesting note to be faxed to [phone] indicating that arabella ross did attend appointment 07/29/19 so she can get her mileage reimbursed. If this is a symptom based call, was patient offered triage? Not Applicable If this is a symptom based call and you were unable to immediately transfer the call to a yuly liz line ordering clinician was caller made aware that if at [...] [place] | | | | | | [address] | | | | | | | | +--------+---------+ + + + documented as of this encounter Visit Diagnoses Not on filedocumented in this encounter"
--- OUTSIDE RECORDS SUMMARY | ~2020-03-28 | XMS | Encounter Summary ---
Demographics + + + | Address | [address] | | | [place] [address] | + + + | Home Phone | | + + + | Preferred Language | Unknown | + + + | Marital Status | | + + + | Methodist Affiliation | 1076 | + + + [...] Team Providers + +------+ + | Care Divemaster Name | Role | Phone | + [...] + | 01/13/ | Office | [facility] | Ladarius Martínez PA | MAMADOU on CPAP (Primary | | 2012 | Visit | SLEEP DISORDER [address] | [address] | Dx) | | | | [address] [place] | [place], [place] | | | | | [place] [address] | [address] | | | | | [phone] | | | +--------+---------+ + + + [...] Insomnia Severity Index Insomnia Severity Index 6 Cathay Sleepiness Scale Sitting and reading 0 Watching [...] 9.23 MH 10.58 PCS 27.75 MCS 12.9 Ladarius Hardwick PA - 10:30 AM PDT Subjective: Patient ID: Shelby Galdamez is a 52 y.o. female. HPI last office visit was: 01/17/2012 date of polysomnography: 09/18/2006 AHI: 57.1 O2%: 87% with minutes below 88% Machine type: Ravi obtained from: [facility] [place] pressure is: 9 cm CPAP download shows [...] This is a common problem with the [employer] and [employer]. Review of Systems Objective: Physical Exam Assessment: Problem # 1: OBSTRUCTIVE SLEEP APNEA (ICD-327.23) This appears to be controlled with CPAP. She has done pretty well with her CPAP compliance , but feels that she would benefit from replacing her CPAP. Plan: She is to continue with CPAP indefinitely. We have faxed a prescription to [facility] for a Res Med S9 with a pressure range of 9-16 cm. I will follow up again in 2 months, sooner prn. Fifteen minutes were spent [id number], w ith the majority of time spent in counseling. Ladarius Martínez PA-C cc: Dr. Barry documented in this enco unter Miscellaneous Notes Miscellaneous - ONBASE SCAN [facility] - 01/13/2013 12:00 AM PDT iscellaneous - ONBASE SCAN [facility] - 01/13/2013 12:00 AM PDTEle ctronically signed [...] | | | | | | [place] | | | | | | [address] | | | | | | | | +--------+---------+ + + + documented as of this encounter Visit Diagnoses + + | Diagnosis | + + | MAMADOU on CPAP - Primary Obstructive sleep apnea (adult) (pediatric) | + + documented in this encounter"
--- OUTSIDE RECORDS SUMMARY | ~2020-03-28 | XMS | Encounter Summary ---
Demographics + + + | Address | [address] | | | [place] [address] | + + + | Home Phone [...] Providers + +------+ + | Care Junior Designer Name | Role | Phone | [...] | | | | Mailcode: [id number] | [facility] [place] | | | | | [facility] | [address] | | | | | [place], [place] | [phone] | | | | | [address] | | | | | | [phone] | | | +--------+ + + + [...]
--- OUTSIDE RECORDS SUMMARY | ~2020-03-28 | XMS | Encounter Summary ---
Demographics + + + | Address | [address] | | | [place] [address] | + + + | Home Phone [...] Team Providers + +------+ + | Care Rand Maker Name | Role | Phone | [...] | | | Surgery [address] | [place], [place] | | | | | [address] | [address] | | | | | Mailcode: [id number] | [phone] | | | | | [facility] | | | | | | [place], [place] | | | | | | [address] | | | | | | [phone] | | | +--------+ + + + [...] + + + | [facility] | [address] | [place] [address] | | | LABORATORY | | | [...] + + + | [facility] | [address] | [place] [address] | | | PATHOLOGY | [address] | | | + + + + + | [facility] | [address] | [place] [address] | | | PATHOLOGY | [address] [...] DEPARTMENT OF | [address] | [place] [address] | | | PATHOLOGY | [address] | | | + + + + + | [facility] DEPARTMENT OF | [address] | [place] [address] | | | PATHOLOGY | [address] [...] | + + + + + | [facility] DEPARTMENT OF | [address] | [place] [address] | | | PATHOLOGY | [address] | | | + + + + + | [facility] DEPARTMENT OF | [address] | [place] [address] | | | PATHOLOGY | [address] | | | + + + + + documented in this encounter Visit Diagnoses Not on filedocumented in this encounter
--- OUTSIDE RECORDS SUMMARY | ~2020-03-28 | XMS | Encounter Summary ---
Demographics + + + | Address | [address] | | | [place] [address] | + + + | Home Phone [...] Providers + +------+ + | Care Clinical Provider Trainer Name | Role | Phone | [...] | Transcriptions | + + | Interface, Print Buyer In - 09/19/2005 9:05 PM PST Date: | | 10/08/2003Attending Surgeon: Marguerite Araujo M.D.River Expedition Guide(s): | | Stas Menjivar M.D.Preoperative Diagnosis(es):Right hip [...] recoveryroom in stable condition.Marguerite Araujo, | | [facility] / [id number] / [id number] / [id number] / T: 10/08/2003 | |a clean granulating [...] | | | |JEMarcus / [place] | |[id number] / [id number] / [id number] / | | | | | + + OPERATION RECORD (10/08/2003) + + | Transcriptions | + + | Interface, Print Buyer In - 09/19/2005 9:05 PM PST Date: | | 10/08/2003Attending Surgeon: Lloyd Garcia M.D.River Expedition Guide(s): | | Benson Boone M.D. Stas Menjivar, [...] | from the OR table to the [facility] with the hipsflexed and abduction pillow in place and | | brought from the Operating Room tothe Recovery Room in stable and satisfactory condition | | having tolerated theprocedure well without apparent complication. All counts were | | reportedcorrect prior to leaving the Operating Room. There were no apparenthypotensive | | episodes or other anesthetic difficulties.Lloyd Garcia M.D.Academic Program Specialist, | | Orthopedics and Rehabilitation / [id number] / [id number] / [id number] / T: | | 10/08/2003 | |tube [...] | | | |Lloyd Garcia M.D. | |Academic Program Specialist, Orthopedics and Rehabilitation | | | | / | |[id number] / [id number] / [id number] / | | | | | + + OPERATION RECORD (10/05/2003) + + | Transcriptions | + + | Interface, Print Buyer In - 09/19/2005 9:05 PM PST Date: | | 10/05/2003Attending Surgeon: Lloyd Garcia M.D.River Expedition Guide(s): | | Benson Boone M.D.Preoperative Diagnosis(es):Right hip [...] for this entire | | case.Benson Boone M.D.Llody Garcia M.D.RT / [id number] / [id number] / [id number] / [id number]: | | 10/05/2003T: 10/05/2003 | |flap for [...] | | | |RT / HS | |[id number] / [id number] / [id number] / 51670 | | | | | + + documented in this encounter Visit Diagnoses Not on filedocumented in this encounter"
--- OUTSIDE RECORDS SUMMARY | ~2020-03-28 | XMS | Encounter Summary ---
Demographics + + + | Address | [address] | | | [place] [address] | + + + | Home Phone [...] + +------+ + | Care Senior Project Accountant Name | Role | Phone | + +------+ + | No Pcp Per Patient | PCP | Unavailable | + +------+ + Encounter Details +--------+ + + + + | Date | Type | Department | Care Team | Description | +--------+ + + + + | 10/13/ | [place] [facility] | Orthopaedics at | Tesfaye Saenz | Osteoarthritis of | | 2008 | | [facility] [address] | [address] | Hip (Primary Dx) | | | | [address] | | | | | | Mailcode: [id number] | | | | | | [facility] | | | | | | [place], [place] | | | | | | [address] | | | | | | [phone] | | | +--------+ + + + [...] | + +---------+ + + | [facility] DEPARTMENT OF | | | | [...]
--- OUTSIDE RECORDS SUMMARY | ~2020-03-28 | XMS | Encounter Summary ---
Demographics + + + | Address | [address] | | | [place] [address] | + + + | Home Phone [...] Team Providers + +------+ + | Care Dramatic Coach Name | Role | Phone | [...] [place] | | | | | | [place], [place] | | | | | | [address] | | | | | | [phone] | | | +--------+---------+ + + + [...] fairly well controlled at this point with Las [...]
--- OUTSIDE RECORDS SUMMARY | ~2020-03-28 | XMS | Encounter Summary ---
Demographics + + + | Address | [address] | | | [place] [address] | + + + | Home Phone [...] Team Providers + +------+ + | Care Procurement Buyer Name | Role | Phone | + +------+ + PCP | Unavailable | + +------+ + Encounter Details +--------+ + + + + | Date | Type | Department | Care Team | Description | +--------+ + + + + | 12/06/ | Results | Orthopaedics at | Gion Baker MD | | | 2005 | Only | [facility] [address] | [address] | | | | | [address] | [place], | | | | | Mailcode: [id number] | [place] [address] | | | | | [facility] | | | | | | [place] | | | | | | [address] | | | | | | [phone] | | | +--------+ + + + [...] + + | Performing | Address | City/State/[facility] [[email or web address] | Phone Number | | Organization | [...] +---------+ + + | [facility] DEPARTMENT | | | | | RADIOLOGY | | | | + +---------+ + + documented in this encounter Visit Diagnoses Not on filedocumented in this encounter"
--- OUTSIDE RECORDS SUMMARY | ~2020-03-28 | XMS | Encounter Summary ---
Demographics + + + | Address | [address] | | | [place] [address] | + + + | Home Phone [...] Team Providers + +------+ + | Care Telecasting Engineer Name | Role | Phone | [...] Pavilion | | | | | | [place], [place] | | | | | | [address] | | | | | | [phone] | | | +--------+ + + + [...] | + + + + + | [facility] | [address] | [place] [address] | | | LABORATORY | | | [...] + + + + + | [facility] DEPARTMENT OF | [address] | [place] [address] | | | PATHOLOGY | [address] | | | + + + + + | [facility] DEPARTMENT OF | [address] | [place] [address] | | | PATHOLOGY | [address] [...] | + + + + + | [facility] | [address] | [place] [address] | | | PATHOLOGY | [address] | | | + + + + + | [facility] | [facility] [address] | [place] [address] | | | PATHOLOGY | [address] [...] DEPARTMENT OF | [address] | [place] [address] | | | PATHOLOGY | [address] | | | + + + + + | [facility] | [address] | [place] [address] | | | PATHOLOGY | [address] [...] Marybeth, | | | | | | Foot Tender, | | | | | | attime [...] + + + | [facility] | [address] | [place] [address] | | | LABORATORY | | | [...] + + + + + | [facility] DEPARTMENT OF | [address] | [place] [address] | | | PATHOLOGY | [address] | | | + + + + + | [facility] DEPARTMENT OF | [address] | [place] [address] | | | PATHOLOGY | [address] [...] + + + + + | [facility] DEPARTMENT OF | [address] | [place] [address] | | | PATHOLOGY | [address] | | | + + + + + | [facility] DEPARTMENT OF | [address] | [place] [address] | | | PATHOLOGY | [address] [...] + + + + + | [facility] DEPARTMENT OF | [address] | [place] [address] | | | PATHOLOGY | [address] | | | + + + + + | [facility] DEPARTMENT OF | [address] | [place] [address] | | | PATHOLOGY | [address] [...] | + + + + + | [facility] | [address] | [place] [address] | | | LABORATORY | | | [...] | + + + + + | [facility] | [address] | [place] [address] | | | PATHOLOGY | [address] | | | + + + + + | [facility] | [address] [address] | [place] [address] | | | PATHOLOGY | [address] [...] | + + + + + | [facility] DEPARTMENT OF | [address] | [place] [address] | | | PATHOLOGY | [address] | | | + + + + + | [facility] DEPARTMENT OF | [address] | [place] [address] | | | PATHOLOGY | [address] [...] | + + + + + | [facility] | [address] | [place] [address] | | | PATHOLOGY | [address] | | | + + + + + | [facility] DEPARTMENT OF | [facility] | [place] [address] | | | PATHOLOGY | [address] [...] + + + | [facility] | [address] | [place] [address] | | | LABORATORY | | | [...] | + + + + + | [facility] | [address] | [place] [address] | | | PATHOLOGY | [address] | | | + + + + + | [facility] DEPARTMENT OF | [address] | [place] [address] | | | PATHOLOGY | [address] [...] + + | [facility] DEPARTMENT OF | [address] | [place] [address] | | | PATHOLOGY | [address] | | | + + + + + | [facility] | [address] | [place] [address] | | | PATHOLOGY | [address] [...] PRIMARY | | | | | | SALVAGE DETERMINER: Joao Wilde | | | | | [...] | | | | | aspirated. A12 Italian | | | | | | multi [...] + + + | [facility] | [address] | [place] [address] | | | LABORATORY | | | [...] + + + + + | [facility] DEPARTMENT OF | [address] | [place] [address] | | | PATHOLOGY | [address] | | | + + + + + | [facility] DEPARTMENT OF | [address] | [place] [address] | | | PATHOLOGY | [address] [...] (L) | 7.4 - 10.4 fL | [facility] | | | | | | [...] + + + + + | [facility] DEPARTMENT OF | [address] | [place] [address] | | | PATHOLOGY | [address] | | | + + + + + | [facility] DEPARTMENT OF | [address] | [place] [address] | | | PATHOLOGY | [address] [...] + + + + + | [facility] DEPARTMENT OF | [address] | [place] [address] | | | PATHOLOGY | [address] | | | + + + + + | [facility] DEPARTMENT OF | [address] | [place] [address] | | | PATHOLOGY | [address] [...] | + + + + + | [facility] | [facility] | [place] [address] | | | PATHOLOGY | [address] | | | + + + + + | [facility] DEPARTMENT OF | [address] | [place] [address] | | | PATHOLOGY | [address] [...] | + + + + + | [facility] | [address] | [place] [address] | | | PATHOLOGY | [address] | | | + + + + + | [facility] | [address] | [place] [address] | | | PATHOLOGY | [address] [...] DEPARTMENT OF | [address] | [place] [address] | | | PATHOLOGY | [address] | | | + + + + + | [facility] DEPARTMENT OF | [address] | [place] [address] | | | PATHOLOGY | [address] [...] | + + + + + | [facility] | [address] | [place] [address] | | | PATHOLOGY | [address] | | | + + + + + | [facility] | [address] | [place] [address] | | | PATHOLOGY | [address] [...] + + + | [facility] | [address] | [place] [address] | | | LABORATORY | | | | + + + + + documented in this encounter Visit Diagnoses Not on filedocumented in this encounter"
--- OUTSIDE RECORDS SUMMARY | ~2020-03-28 | XMS | Encounter Summary ---
Demographics + + + | Address | [address] | | | [place] [address] | + + + | Home Phone [...] Providers + +------+ + | Care Photographic Editor Name | Role | Phone | [...] as of this encounter Progress Notes Interface, Contact Center Rep In - 07/22/2006 3:18 AM PDTCLINIC DATE: [...] that. Jason Castano M.A. TAYE / [place] [id number] / [id number] / [id number] / Tdocumented in this encounter Plan of Treatment Not on filedocumented as of this encounter Visit Diagnoses Not on filedocumented in this encounter"
--- OUTSIDE RECORDS SUMMARY | ~2020-03-28 | XMS | Encounter Summary ---
Demographics + + + | Address | [address] | | | [place] [address] | + + + | Home Phone | | + + + | Preferred Language | Unknown | + + + | Marital Status | | + + + | Mu-Ism Affiliation | 1076 | + + + [...] Team Providers + +------+ + | Care Swimming Pool Service Technician Name | Role | Phone | + +------+ + | Kalri Hammonds | PCP | | | MD [...] + + | 10/02/ | Telephone | [facility] | Augie Valdivia MD | Appointment | | 2012 | | GASTROENTEROLOGY | [address] [facility] | (procedure scheduled | | | | [address] [facility] | [address] [place] [place], [place] | Oct.24 insurance | | | | [address] [place], [place] | [address] | denies coverage for | | | | [address] | | endoscopy) | | | | [phone] | | | +--------+ + + + [...] 2019 | Visit | | DO [address] | | | | | | [place] | | | | | | [address] | | | | | | | | +--------+---------+ + + + documented as of this encounter Visit Diagnoses Not on filedocumented in this encounter
--- OUTSIDE RECORDS SUMMARY | ~2020-03-28 | XMS | Encounter Summary ---
Demographics + + + | Address | [address] | | | [place] [address] | + + + | Home Phone [...] Team Providers + +------+ + | Care Supply Chain Coordinator Name | Role | Phone | + +------+ + | Yuki Pantoja MD | PCP | | + +------+ + Encounter Details +--------+ + + + + | Date | Type | Department | Care Team | Description | +--------+ + + + + | 06/21/ | Business Development Specialist | Orthopaedics at | Kalyan Colby MD | Osteoarthritis of | | 2008 | | [facility] [address] | [address] | Hip (Primary Dx) | | | | [address] | [address] | | | | | Mailcode: PV430 | [place], [place] | | | | | [facility] | [address] | | | | | [place], [place] | [phone] | | | | | [address] | | | | | | [phone] | | | +--------+ + + + [...] X-RAY HIP 2 | Med Rec No: [id number] | | | | | VIEWS | Name: | | | | | RIGHT W/ | SHELBY GALDAMEZ | | | | | PELVIS 1 | Birthday: 1960 | | | | | VIEW | Sex: F | | | | | | Alias:Patient Location: | | | | | | [id number]: Outpatient | | | | | | [...] # | | | | | | [id number]:PELVIS | | | | | | ONE [...]
--- OUTSIDE RECORDS SUMMARY | ~2020-03-28 | XMS | Encounter Summary ---
Demographics + + + | Address | [address] | | | [place] [address] | + + + | Home Phone [...] Team Providers + +------+ + | Care Smt Operator Name | Role | Phone | [...] | Diseases at [facility] | [address] | | | | | [address] | [address] | | | | | Loop Physician's | [place], [place] | | | | | [place], [address] floor | [address] | | | | | [place], [place] | [phone] | | | | | [address] | | | | | | [phone] | | | +--------+ + + + [...]
--- OUTSIDE RECORDS SUMMARY | ~2020-03-28 | XMS | Encounter Summary ---
Demographics + + + | Address | [address] | | | [place] [address] | + + + | Home Phone [...] Providers + +------+ + | Care Merchandise Buyer Name | Role | Phone | [...] [facility] | | | | | | [address] | | | | | | Loop Physician's | | | | | | [place], [facility] Floor | | | | | | [place], [place] | | | | | | [address] | | | | | | [phone] | | | +--------+ + + + [...] + + + +---------+ + + | [place]-3 Fatty | Take by mouth. | | [...]
--- OUTSIDE RECORDS SUMMARY | ~2020-03-28 | XMS | Encounter Summary ---
Demographics + + + | Address | [address] | | | [place] [address] | + + + | Home Phone [...] Team Providers + +------+ + | Care Insole Toe Snipping Machine Operator Name | Role | Phone [...] | Diseases at [facility] | [address] | | | | | [address] | [address] | | | | | Loop Physician's | [place], [place] | | | | | [place], [address]rd floor | [address] | | | | | [place], [place] | [phone] | | | | | [address] | | | | | | [phone] | | | +--------+ + + + [...] | SEDIMENTATI | 48 | mm/hr | [facility] | | | ON RATE | | [...] | + + + + + | [facility] | [address] | [place] [address] | | | CENTER - [place] | | | | + + + + + documented in this encounter Visit Diagnoses Not on filedocumented in this encounter"
--- OUTSIDE RECORDS SUMMARY | ~2020-03-28 | XMS | Encounter Summary ---
Demographics + + + | Address | [address] | | | [place] [address] | + + + | Home Phone [...] Team Providers + +------+ + | Care Coupon Redemption Clerk Name | Role | Phone | + +------+ + | Eric Krishna MD | PCP | | + +------+ + Encounter Details +--------+ + + + + | Date | Type | Department | Care Team | Description | +--------+ + + + + | 04/27/ | Orders Only | [facility] | Provider, | Spondylosis of | | 2018 | | SYSTEM GENERIC OP | [address] | lumbar region | | | | CONVERSION [address] | [address] | without myelopathy | | | | [address] [place], [place] | [place] [address] | or radiculopathy; | | | | [address] | | Spondylosis of | | | | [phone] | | lumbar region | | | | | | without myelopathy | | | | | | or radiculopathy; | | | | | | Pain in left hip; | | | | | | Chronic pain | | | | | | syndrome | +--------+ + + + + Social [...] [place] | | | | | | [address] | | | | | | | | +--------+---------+ + + + + +------+--------+ + + | Name | Type | Priori | Associated Diagnoses | Order Schedule | | | | ty | | | + +------+--------+ + + | Drugs of Abuse, | Lab | Routin | Spondylosis of | Expected: | | Panel, Pain | | e | lumbar region | 04/09/2019, Expires: | | Management 2, Reflex | | | without myelopathy | 04/08/2020 | | | | | or radiculopathy | | | | | | Spondylosis of | | | | | | lumbar region | | | | | | without myelopathy | | | | | | or radiculopathy | | | | | | Pain in left hip | | | | | | Chronic pain | | | | | | syndrome | | + +------+--------+ + + documented as of this encounter Visit Diagnoses + + | Diagnosis | + + | Spondylosis of lumbar region without myelopathy or radiculopathy Lumbosacral | | spondylosis without myelopathy | + + | Pain in left hip Pain in joint, pelvic region and thigh | + + | Chronic pain syndrome | + + documented in this encounter"
--- OUTSIDE RECORDS SUMMARY | ~2020-03-28 | XMS | Encounter Summary ---
Demographics + + + | Address | [address] | | | [place] [address] | + + + | Home Phone [...] Providers + +------+ + | Care Technical Sales Representative Name | Role | Phone [...] | | | | | | [place], | | | | | | | [place] | | | | | | | [address] | | | | | | | Phone: | | | | | | | [phone] | | | | | | | Fax: | | | | | | | [phone] | +--------+--------+ + + + + Encounter [...] | | arthroplasty) | | | | [place], [place] | | | | | | [address] | | | | | | [phone] | | | +--------+---------+ + + + [...] still well controlled at this point with Pierson. She has been wbat and is overall [...] view Consult to rehabilitation physical therapy outside [facility] documented in this encounter Plan of Treatment [...]
--- OUTSIDE RECORDS SUMMARY | ~2020-03-28 | XMS | Encounter Summary ---
Demographics + + + | Address | [address] | | | [place] [address] | + + + | Home Phone [...] Author + + + | Author | [facility] | + + + | Organization | [facility] | + + + | Address [...] Team Providers + +------+ + | Care Pilot Fuel Engineer Name | Role | Phone | [...] as of this encounter Progress Notes Interface, Actuarial Science Teacher In - 07/10/2006 1:00 AM PDTCLINIC DATE: [...] right total hip replacement. Lloyd Garcia M.D. Pony Ride Attendant Orthopedic and Rehabilitation / [id number] / [id number] / [id number] / cc: JILLIAN TODD MD [address] [id number] signed by Interface, Actuarial Science Teacher In at 07/10/2006 1:0 0 AM PDTdocumented in this encounter Plan of Treatment Not on filedocumented as of this encounter Visit Diagnoses Not on filedocumented in this encounter"
--- OUTSIDE RECORDS SUMMARY | ~2020-03-28 | XMS | Encounter Summary ---
Demographics + + + | Address | [address] | | | [place] [address] | + + + | Home Phone [...] Providers + +------+ + | Care Dry Curer Name | Role | Phone | + [...] | Transcriptions | + + | Interface, Heel Painter In - 03/06/2006 1:10 AM PDT Date: | | 08/16/2003Attending Surgeon: Lloyd Garcia M.D.Sale Professional Digital Marketing(s): | | Benson Bonoe M.D.Preoperative Diagnosis:Right hip degenerative joint | | [...] cc per Arreaga drain to | | 8-Tristanian tubes to 1 median Hemovac suctioncanister.Postoperative Plan:Ancef [...] brought to | | OperatingRoom #6 at [facility] Operating Room suite.She | | was [...] Vicryl mattress sutures andaddition | | of okfuou-on-rfynx 0 Vicryl. The fascial layer with ubhqaqverqslrhnqf-pc-hbgzm 0 | | Vicryl sutures. Fadumo's fascia [...] to | | leaving the room.Lloyd Garcia M.D.Set Rider, Orthopedics and | | Rehabilitation / [id number] / [id number] / [id number] / [id number]: 08/16/2003T: | | 08/16/2003cc:Ninfa Guillen M.D.[address] [place] [address] | | | |The posterior superior iliac [...] in the muscular interval between tensor fascia vl and sartorius. | |We came across the [...] Vicryl mattress sutures and | |addition of bqmjdt-mx-orbym 0 Vicryl. The fascial layer with interrupted | |dqrowg-ts-cpssb 0 Vicryl sutures. Fadumo's fascia was closed [...] | | | |Lloyd Garcia M.D. | |Set Rider, Orthopedics and Rehabilitation | | | | / | |[id number] / [id number] / [id number] / 02029 | | | | | | | |cc: | | | |Ninfa Guillen M.D. | |[address], | |[place] [address] | + + documented in this encounter Visit Diagnoses Not on filedocumented in this encounter"
--- OUTSIDE RECORDS SUMMARY | ~2020-03-28 | XMS | Encounter Summary ---
Demographics + + + | Address | [address] | | | [place] [address] | + + + | Home Phone | | + + + | Preferred Language | Unknown | + + + | Marital Status | | + + + | Anabaptist Affiliation | [id number] | + + + [...] Team Providers + +------+ + | Care Cotton Weigher Operator Name | Role | Phone | [...] +--------+---------+ + + + | 11/25/ | Surgery | [facility] | Rustam Schmid MD | RIGHT URETEROSCOPY | | 2016 | | MED CTR OR INTRA OP | [address] [facility] | W/ LASER LITHOTRIPSY | | | | [address] | [place] | RIGHT URETERAL | | | | [place] | [address] | STENT PLACEMENT. | | | | [address] | [phone] | | | | | [phone] | | | +--------+---------+ + + + [...] + + + | Blood Pressure | 146/78 | 11/25/2016 7:36 AM | | | | | PST | | + + + + + | Pulse | 112 | 11/25/2016 8:43 AM | | | | | PST | | + + + + + | Temperature | 37.2 C (99 F) | 11/25/2016 7:36 AM | | | | | PST | | + + + + + | Respiratory Rate | 22 | 11/25/2016 8:43 AM | | | | | PST | | + + + + + | Oxygen Saturation | 97% | 11/25/2016 8:43 AM | | | | | PST [...] results from [facility]. Stent may be removed by her director airport operations on Saturday 5 or SaturdayDecember 03. AttachmentsThe following attachments cannot be sent through Care Everywhere.DIET, DISCHARGE INSTRUCTIONS FOR EATING A LOW-SALT (ERITREAN)KIDNEY STONES,PREVENTING (ERITREAN)documented in this encounter Medications at Time of [...] Marium Cuenca RN at 017 8:29 AM Marium Olivarez RN - 11/25/2016 6:30 AM PSTArrived at 0545 via ground ambul ance from [facility] in [place]. C/o rt back/flank pain. Dry heaves noted. [...] Schmid MD - 11/25/2016 6:52 AM PST [facility] ADMIT HISTORY AND PHYSICAL Primary Care Physician: rEic Krishna PATIENT NAME: Shelby Galdamez : 1960 [...] is a 56 y.o. female, transferred from [place] emergency room with s ymptomatic right ureterolithiasis. [...] Signed by: Rustam Schmid MD, 11/25/2016 7:05 [facility] documented in this enc ounter Nursing Notes [...] Rustam Schmid MD - 2016 11:00 AM PSTPROSWED[facility] NOTE Pt. Name/Age/: Shelby Galdamez 56 y.o. 1960 Med. Record Number: [id number] Date of Operation/Procedure: 11/25/2016 Preoperative Diagnosis: right ureteral stones [N20.1] Post-Op Diagnosis Codes: * Right ureteral stone [N20.1] Postoperative Diagnosis: Same Surgeon: Rustam Schmid MD Search Engine Optimization Strategist(s): None Anesthesia Provider(s): Anesthesiologist: Helio Barkley MD Registered Nurses: Rain Edouard Anesthesia Type: General Procedure(s): RIGHT URETEROSCOPIC LASER LITHOTRIPSY PLACEMENT RIGHT URETERAL STENT PLACEMENT Operative Indications: Shelby Galdamez is a 56 y.o. year old female transferred from [facility] several hours ago, with CT demonstrating a [...] the usual sterile fashion . A 23 Lithuanian cystoscope was introduced to the bladder with [...] were removed. A 25 cm x 14 Lithuanian ureteral access sheath was threaded over the [...] back over the safety wire. A 6 Lithuanian by 26 cm diana ble-J stent was [...] Signed by: Rustam Schmid MD, 11/25/2016 11:01 [facility] documented in this enc ounter Plan of [...] [place] | | | | | | [address] | | | | | | | [...] MD | | | | | | ([id number]) on 11/25/2016 | | | | | [...] + | Diagnosis | + + | Right ureteral stone Calculus of ureter | + + documented in this encounter
--- OUTSIDE RECORDS SUMMARY | ~2020-03-28 | XMS | Encounter Summary ---
Demographics + + + | Address | [address] | | | [place] [address] | + + + | Home Phone [...] Providers + +------+ + | Care Air Cargo Ground Crew Supervisor Name | Role | Phone | [...] Pavilion | | | | | | [place], [place] | | | | | | [address] | | | | | | [phone] | | | +--------+ + + + [...] + + | Performing | Address | City/State/[facility] Cent[facility]ode | Phone Number | | Organization [...]
--- OUTSIDE RECORDS SUMMARY | ~2020-03-28 | XMS | Encounter Summary ---
Demographics + + + | Address | [address] | | | [place] [address] | + + + | Home Phone [...] Team Providers + +------+ + | Care Button Cutting Machine Operator Name | Role | Phone | + +------+ + | Marta Jenkins ROW BOSS HOEING | PCP | | + +------+ + [...] | Jamie Mailcode: [address] [place], | | | | | [place], [place] | [place] [address] | | | | | [address] | | | | | | [phone] | | | +--------+ + + + [...] [place] DEPARTMENT | [address] | [place] [address] | | | PATHOLOGY | [address] | | | + + + + + | [facility] DEPARTMENT OF | [address] | [place] [address] | | | PATHOLOGY | [address] [...] + + + + + | [facility] | [address] | [place] [address] | | | PATHOLOGY | [address] | | | + + + + + | [facility] | [address] [place] [address] [address] | [place] [address] | | | PATHOLOGY | [address] [...] OF | [address] | [place] [address] | | | PATHOLOGY | [address] | | | + + + + + | [facility] DEPARTMENT OF | [address] | [place] [address] | | | PATHOLOGY | [address] [...]
--- OUTSIDE RECORDS SUMMARY | ~2020-03-28 | XMS | Encounter Summary ---
Demographics + + + | Address | [address] | | | [place] [address] | + + + | Home Phone [...] Team Providers + +------+ + | Care Agriculture Internship Name | Role | Phone | + [...] as of this encounter Progress Notes Interface, Reclamation Worker In - 04/28/2005 5:10 PM PDTClinic Date: [...] has been at her friend's house in [facility] and has been receiving IV antibiotics via [...] Benson Boone M.D. Lloyd Garcia M.D. / [id number] / [id number] / 17762 / 25072 Tdocumented in this encounter Plan of Treatment Not on filedocumented as of this encounter Visit Diagnoses Not on filedocumented in this encounter"
--- OUTSIDE RECORDS SUMMARY | ~2020-03-28 | XMS | Encounter Summary ---
Demographics + + + | Address | [address] | | | [place] [address] | + + + | Home Phone [...] Team Providers + +------+ + | Care Multi Operation Machine Operator Name | Role | Phone | + +------+ + | Marta Jenkins ELEVATOR CONSTRUCTOR HELPER | PCP | | + +------+ [...] | Jamie Mailcode: [address] [place], | | | | | [place], [place] | [place] [address] | | | | | [address] | | | | | | [phone] | | | +--------+ + + + [...]
--- OUTSIDE RECORDS SUMMARY | ~2020-03-28 | XMS | Encounter Summary ---
Demographics + + + | Address | [address] | | | [place] [address] | + + + | Home Phone [...] Providers + +------+ + | Care Staff Air Tactical Officer Name | Role | Phone | [...] as of this encounter Discharge Summaries Interface, Research Contracts Supervisor In - 03/06/2006 1:10 AM PDTAdmission Date: [...] time of discharge. She initially had a GRANITE BLOCK PAVER that was weaned off as well as [...]
--- OUTSIDE RECORDS SUMMARY | ~2020-03-28 | XMS | Encounter Summary ---
Demographics + + + | Address | [address] | | | [place] [address] | + + + | Home Phone [...] Team Providers + +------+ + | Care Soda Maker Name | Role | Phone | + +------+ + | Travis Mcginnis MD | PCP | | + +------+ + Encounter Details +--------+ + + + + | Date | Type | Department | Care Team | Description | +--------+ + + + + | 10/02/ | Hospital | Radiology/Imaging | Royce Durand, | | | 2019 | Encounter | Lab at [facility] [address] | [address] [facility] | | | | | Yasmany Gil Mailcode: | [address] | | | | | [facility] | [place], [place] | | | | | Health and Healing, | [address] | | | | | | [phone] | | | | | Floor [place], [place] | | | | | | [address] | | | | | | [phone] | | | +--------+ + + + [...] + + + +---------+ + + | [place]-3 Fatty | Take by mouth. | | [...]
--- OUTSIDE RECORDS SUMMARY | ~2020-03-28 | XMS | Encounter Summary ---
Demographics + + + | Address | [address] | | | [place] [address] | + + + | Home Phone [...] Team Providers + +------+ + | Care Butcher'S Assistant Name | Role | Phone | [...] | | + +---------+ + + | [facility] DEPARTMENT OF | | | | | RADIOLOGY | | | | + +---------+ + + documented in this encounter Visit Diagnoses Not on filedocumented in this encounter"
--- OUTSIDE RECORDS SUMMARY | ~2020-03-28 | XMS | Encounter Summary ---
Demographics + + + | Address | [address] | | | [place] [address] | + + + | Home Phone | | + + + | Preferred Language | Unknown | + + + | Marital Status | | + + + | Adventism Affiliation | 1076 | + + + | Race | Unknown | + + + | Ethnic Group | Unknown | + + + Author + + + | Author | [facility] | | | and [place] | + + + | Organization | [facility] | | | [...] Team Providers + +------+ + | Care Typing Office Worker Name | Role | Phone | [...] + + | 05/29/ | Office | [facility] | Xiang Sepulveda, | Chronic pain | | 2019 | Visit | [facility] | DO [address] | syndrome (Primary | | | | [address]OLOG[address] | [place], [place] | Dx); Radiculopathy | | | | [address] | [address] | of lumbar region; | | | | [place], [place] | | DDD (degenerative | | | | [address] | | disc disease), | | | | [phone] | | lumbar; Facet | | | [...] Service: (none) Author Type: Physician Filed: 05/07/19 1133 Encounter Date: 05/07/2019 Status: Addendum Structural Engineering Technician: Xiang Sepulveda DO (Physician) Related Notes: Original Note by Xiang Sepulveda DO (Physician) filed at 05/07/19 1122 Patient returns for medication review and adjustment [...] to physical therapy, mass age therapy, acupuncture, emergency care attendant, along with recommended psychological counseling , either privately, or in group sessions offered by private care individuals, community serv ices, or confucianist organizations. Appropriate referrals were made at patient [...] are noted in men and women. [place] men will suffer erectile dysfunction with these [...] and complications with the passage of time. jail use is also associated with depressions, and [...] [place] | | | | | | [address] | | | | | | | [...]
--- OUTSIDE RECORDS SUMMARY | ~2020-03-28 | XMS | Encounter Summary ---
Demographics + + + | Address | [address] | | | [place] [address] | + + + | Home Phone [...] Team Providers + +------+ + | Care Electrotyper Name | Role | Phone | + [...] | [facility] | MEGAN Reddy [address] | | | | | [address] | [address] | | | | | Loop Physician's | [place], [place] | | | | | [address], 3rd floor | [address] | | | | | [place], [place] | [phone] | | | | | [address] | | | | | | [phone] | | | +--------+ + + + [...] [address] | [place] | [phone] | | [facility] | | [address] | | + + + + + | [place] | [address] | [place] | | | [facility] | | [address] | | + + + + + [...] [address] | [place] | [phone] | | [facility] | | [address] | | + + + + + | [facility]ES | [address] | [place] | | | [facility] | | [address] | | + + + + + documented in this encounter Visit Diagnoses Not on filedocumented in this encounter"
--- OUTSIDE RECORDS SUMMARY | ~2020-03-28 | XMS | Encounter Summary ---
Demographics + + + | Address | [address] | | | [place] [address] | + + + | Home Phone [...] Team Providers + +------+ + | Care Sports Official Name | Role | Phone | + [...] as of this encounter Progress Notes Interface, E Commerce Director In - 08/20/2006 3:01 AM PSTCLINIC DATE: [...] views. Fox Chopra M.D. BETH / SALEEM [id number] / [id number] / 12618 / C: 02/18/2000 jerman Noladn M.D. [place], [place] [address] [place] [address], [address] [place], [place] [address]Ijoaztxzmanxja signed by Interface, E Commerce Director In at 08/20/2006 3:01 AM PSTInterface, E Commerce Director In - 08/20/2006 3:01 AM PSTCLINIC DATE: [...] from her physical therapist, Rustam Sykes, at [facility] in [place], [place], which indicates that she has been [...] in any additional way at phone number [phone]. PHYSICAL EXAMINATION: Essentially unchanged from previous exams. [...] necessary at this point. Lloyd Garcia M.D. Corrugated Box Machine Operator, Orthopedics and Rehabilitation / [id number] / [id number] / 15080 / cc: Helio Noland MD [address] [place], [place] [address] [place] [address] documented in this encounter Plan of Treatment Not on filedocumented as of this encounter Visit Diagnoses Not on filedocumented in this encounter"
--- OUTSIDE RECORDS SUMMARY | ~2020-03-28 | XMS | Encounter Summary ---
Demographics + + + | Address | [address] | | | [place] [address] | + + + | Home Phone [...] Providers + +------+ + | Care Staff Midwife Name | Role | Phone | + [...] + + + + | 10/24/ | Junior Brand Manager | Infectious | Carolina Putnam | | | 2010 | | [facility] | K, PAXavierC [address] | | | | | [address] | [address] | | | | | Loop Physician's | [place], [place] | | | | | [address], 3rd floor | [address] | | | | | [place], [place] | [phone] | | | | | [address] | | | | | | [phone] | | | +--------+ + + + [...]
--- OUTSIDE RECORDS SUMMARY | ~2020-03-28 | XMS | Encounter Summary ---
Demographics + + + | Address | [address] | | | [place] [address] | + + + | Home Phone [...] Team Providers + +------+ + | Care Implementation Manager Name | Role | Phone | [...] | | | | Mailcode: [address] | [place], [place] | | | | | [facility] | [address] | | | | | [place], [place] | [phone] | | | | | [address] | | | | | | [phone] | | | +--------+ + + + [...]
--- OUTSIDE RECORDS SUMMARY | ~2020-03-28 | XMS | Encounter Summary ---
Demographics + + + | Address | [address] | | | [place] [address] | + + + | Home Phone [...] Team Providers + +------+ + | Care Diaper Folder Name | Role | Phone | [...] Pavilion | | | | | | [place], [place] | | | | | | [address] | | | | | | [phone] | | | +--------+ + + + [...] + | [facility] | [address] [facility] [facility] | [place] [address] | | | PATHOLOGY | [address] | | | + + + + + | [facility] | [address] | [place] [address] | | | PATHOLOGY | [address] [...] + + + + + | [facility] DEPARTMENT OF | [address] | [place] [address] | | | PATHOLOGY | [address] | | | + + + + + | [facility] DEPARTMENT | [address] | [place] [address] | | | PATHOLOGY | [address] [...] | + + + + + | [facility] OF | [address] | [place] [address] | | | PATHOLOGY | [address] | | | + + + + + | [facility] OF | [facility] [address] | [place] [address] | | | PATHOLOGY | [address] [...] + + + + + | [facility] DEPARTMENT OF | [address] | [place] [address] | | | PATHOLOGY | [address] | | | + + + + + | [facility] DEPARTMENT OF | [address] | [place] [address] | | | PATHOLOGY | [address] [...] | | + +---------+ + + | [facility] DEPARTMENT OF | | | | | RADIOLOGY | | | | + +---------+ + + documented in this encounter Visit Diagnoses Not on filedocumented in this encounter"
--- OUTSIDE RECORDS SUMMARY | ~2020-03-28 | XMS | Encounter Summary ---
Demographics + + + | Address | [address] | | | [place] [address] | + + + | Home Phone [...] Providers + +------+ + | Care Legal Billing Analyst Name | Role | Phone | [...] | | | at [facility] | [facility] | | | | | [address] | [place] [address] | | | | | [address] | | | | | | Luis Alfredo, [address] [place] [address] | | | | | | [place], [place] | | | | | | [address] | | | | | | [phone] | | | +--------+ + + + [...] view image for the detailed interpretation from [employer] results. | CARDIOLOGY | | | | + + + + + + + + | Performing | Address | City/State/Zipcode | Phone Number | | Organization | | | | + + + + + | [facility] DEPT OF | [address] | [place], [place] | | | CARDIOLOGY | [address] | [address] | | + + + + + | [facility] DEPT OF | [address] | [place], [place] | | | CARDIOLOGY | [address] | [address] | | + + + + + documented in this encounter Visit Diagnoses + + | Diagnosis | + + | Other specified pre-operative examination | + + documented in this encounter
--- OUTSIDE RECORDS SUMMARY | ~2020-03-28 | XMS | Encounter Summary ---
Demographics + + + | Address | [address] | | | [place] [address] | + + + | Home Phone [...] Team Providers + +------+ + | Care Utility Driver Name | Role | Phone | [...]
--- OUTSIDE RECORDS SUMMARY | ~2020-03-28 | XMS | Encounter Summary ---
Demographics + + + | Address | [address] | | | [place] [address] | + + + | Home Phone [...] Team Providers + +------+ + | Care Television Engineer Name | Role | Phone | [...] | | | is of hip | [facility] | [address] | | | | | Procedures | Rd | [address] [place], | | | | | CONSULT TO | [place], [place] | [place] [address] | | | | | ORTHOPEDICS | [address] | | | | | | AND [...] | | | | | [facility] | [address] [facility] | | | | | | MEDICAL | [facility] | | | | | | CLINIC [address] | [address] | | | | | | [address] | [place] | | | | | | [place], [place] | [address] | | | | | | [address] | | +--------+--------+ + + + + [...] Pavilion | | | | | | [place], [place] | | | | | | [address] | | | | | | [phone] | | | +--------+---------+ + + + [...] for hip pain who returns to [facility] after a right hip [...] states, that he recieves a letter from [facility] indicating the continued need. She has [...]
--- OUTSIDE RECORDS SUMMARY | ~2020-03-28 | XMS | Encounter Summary ---
Demographics + + + | Address | [address] | | | [place] [address] | + + + | Home Phone [...] Providers + +------+ + | Care Instrument And Control Technician Name | Role | Phone [...] of this encounter Progress Notes Interface, Aircraft Launch And Recovery Technician In - 09/15/2006 5:11 AM PSTCLINIC DATE: [...] M.D. Lloyd Garcia MD LLP:[id number] C: 04/26/99 [facility] cc: Matthew Garcia MD [address] [place], [place] [address]Gpzouxhdvksodr signed by Interface, Aircraft Launch And Recovery Technician In at 09/15/2006 5:11 AM PSTInterface, Aircraft Launch And Recovery Technician In - 09/13/2006 3:12 AM PSTCLINIC DATE: [...] evaluation and treatment recommendations. Lloyd Garcia M.D., Optical Goods Drill Operator, Orthopedics and Rehabilitation AH:[id number] Electronically signed by Bill, Aircraft Launch And Recovery Technician In at 1 11/14/2005 3:12 AM PSTdocumented in this encounter Plan of Treatment Not on filedocumented as of this encounter Visit Diagnoses Not on filedocumented in this encounter"
--- OUTSIDE RECORDS SUMMARY | ~2020-03-28 | XMS | Encounter Summary ---
Demographics + + + | Address | [address] | | | [place] [address] | + + + | Home Phone [...] Team Providers + +------+ + | Care Gospel Singer Name | Role | Phone | [...] as of this encounter Progress Notes Interface, Arresting Gear Operator In - 04/19/2006 3:09 AM PDTCLINIC [...] questions. Jason Castano M.A. Orthopedics / HS [id number] / [id number] / 34788 / Tdocumented in this encounter Plan of Treatment Not on filedocumented as of this encounter Visit Diagnoses Not on filedocumented in this encounter"
--- OUTSIDE RECORDS SUMMARY | ~2020-03-28 | XMS | Encounter Summary ---
Demographics + + + | Address | [address] | | | [place] [address] | + + + | Home Phone [...] + +------+ + | Care Professor Of Communication Arts Name | Role | Phone | + [...] as of this encounter Discharge Summaries Interface, Crane Hoist Or Lift Operator In 02/27/2006 3:05 AM PDTAdmission Date: 09/13/2003 [...] Benson Boone M.D. Lloyd Garcia M.D. RT:[id number] signed by Interface, Crane Hoist Or Lift Operator In at 02/27/2006 3:05 AM [facility] this encounter Plan of Treatment Not on filedocumented as of this encounter Visit Diagnoses Not on filedocumented in this encounter"
--- OUTSIDE RECORDS SUMMARY | ~2020-03-28 | XMS | Encounter Summary ---
Demographics + + + | Address | [address] | | | [place] [address] | + + + | Home Phone [...] Team Providers + +------+ + | Care Professional Healthcare Representative Name | Role | Phone | [...]
--- OUTSIDE RECORDS SUMMARY | ~2020-03-28 | XMS | Encounter Summary ---
Demographics + + + | Address | [address] | | | [place] [address] | + + + | Home Phone [...] + +------+ + | Care Director Of Curriculum And Instruction Name | Role | Phone | + [...]
--- OUTSIDE RECORDS SUMMARY | ~2020-03-28 | XMS | Encounter Summary ---
Demographics + + + | Address | [address] | | | [place] [address] | + + + | Home Phone [...] Team Providers + +------+ + | Care Mis Specialist Name | Role | Phone | [...] of this encounter Progress Notes Interface, Supervisor Landscape In - 04/28/2005 6:17 PM PDTClinic Date: [...] presence of her friend and my physician physical therapy assistant instructor and resident [facility] in the [facility] [...] as soon as possible. Lloyd Garcia M.D. Printing Engineer of Orthopedics and Rehabilitation / [id number] / [id number] / [id number] / [id number] Tdocumented in this encounter Plan of Treatment Not on filedocumented as of this encounter Visit Diagnoses Not on filedocumented in this encounter
--- OUTSIDE RECORDS SUMMARY | ~2020-03-28 | XMS | Encounter Summary ---
Demographics + + + | Address | [address] | | | [place] [address] | + + + | Home Phone [...] Providers + +------+ + | Care Clinical Engineering Manager Name | Role | Phone | [...] | | | | Mailcode: [id number] | [place], [place] | | | | | [facility] | [address] | | | | | [facility] [place] | [phone] | | | | | [address] | | | | | | [phone] | | | +--------+ + + + [...]
--- OUTSIDE RECORDS SUMMARY | ~2020-03-28 | XMS | Encounter Summary ---
Demographics + + + | Address | [address] | | | [place] [address] | + + + | Home Phone [...] Team Providers + +------+ + | Care Surveillance Specialist Name | Role | Phone | + +------+ + | Marta Jenkins SET UP OPERATOR TOOL | PCP | | + +------+ + [...] [address] | | | | | [place], [place] | [place], [place] | | | | | [address] | [address] | | | | | [phone] | [phone] | | | | | | | [...]
--- OUTSIDE RECORDS SUMMARY | ~2020-03-28 | XMS | Encounter Summary ---
Demographics + + + | Address | [address] | | | [place] [address] | + + + | Home Phone [...] Team Providers + +------+ + | Care Joist Setter Name | Role | Phone | [...] as of this encounter Progress Notes Interface, Ward Helper In - 07/14/2006 1:10 AM PDTCLINIC DATE: [...] in the system. Dariana Champion M.A. / [id number] / [id number] / [id number] / Watt Ward Helper In - 07/10/2006 1:00 AM PDTCLINIC DATE: [...] insurance at and spoke with [employer]. This international representative stated that this prescription had been [...] over the phone. Dariana Champion M.A. / [id number] / [id number] / [id number] / Tdocumented in this encounter Plan of Treatment Not on filedocumented as of this encounter Visit Diagnoses Not on filedocumented in this encounter"
--- OUTSIDE RECORDS SUMMARY | ~2020-03-28 | XMS | Encounter Summary ---
Demographics + + + | Address | [address] | | | [place] [address] | + + + | Home Phone [...] Team Providers + +------+ + | Care Linen Folder Name | Role | Phone | [...] | | [address] | [place], | | | | | Mailcode: [address] | [place] [address] | | | | | [facility] | | | | | | [place] | | | | | | [address] | | | | | | [phone] | | | +--------+ + + + [...]
--- OUTSIDE RECORDS SUMMARY | ~2020-03-28 | XMS | Encounter Summary ---
Demographics + + + | Address | [address] | | | [place] [address] | + + + | Home Phone [...] | | Karen Del Rosario NP | [facility] [address] | | | | | TRANSTHORACI | [address] | [address] | | | | | C | [address] | [address] | | | | | ECHOCARDIOGR | Rd | [place] | | | | | AM, ADULT | [place], [place] | [facility] | | | | | | [address] | floor | | | | | | | [facility] [place] | | | | | | | [address] | | | | | | | Phone: | | | | | | | [phone] | +--------+--------+ + + + + Diagnostic [...] | | | X-RAY | Karen E, CLAY SHOP SUPERVISOR | [address] | | | | | ASPIRATION | [address] | [address] | | | | | [place] INJECTION | [facility] | Mailcode: | | | | | MAJOR JOINT | Rd | [facility] | | | | | W/NEEDLE | [facility] [place] | for Health | | | | | PLCMT | [address] | and Healing, | | | | | | | Building 1, | | | | | | | 3rd Floor | | | | | | | [facility] [place] | | | | | | | [address] | | | | | | | Phone: | | | | | | | [phone] | | | | | | | Fax: | | | | | | | [phone] | +--------+--------+ + + + + Reason [...] | | | | | | | [address] | | | | | | | [address] | | | | | | | Jamie [facility] | | | | | | | [facility] | | | | | | | [place], [place] | | | | | | | [address] | | | | | | | Phone: | | | | | | | [phone] | +--------+--------+ + + + + Encounter [...] | 10/23/ | | Rose Ocampo | [place], [place] | | | 2010 | | (MNP/[facility]) | [address] | | | | | [place], [place] | [phone] | | | | | [address] | | | | | | | Jillian Bee MD | | | | | | [address] | | | | | | [address] [place], | | | | | | [place] [address] | | | | | | [phone] | | | | | | | | | | | | Tisha Figueroa FNP | | | | | | [address] | | | | | | [place], | | | | | | [place] [address] | | | | | | [phone] | | | | | | | | | | | | Rustam Duenas MD | | | | | | [address] | | | | | | [facility], | | | | | | [place] [address] | | | | | | [phone] | | | | | | | | | | | | Benson Cooper MD | | | | | | [address] [place] | | | | | | [address] [place], [place] | | | | | | [address] | | | | | | | | | | | | Kalyan Arias MD | | | | | | [address] | | | | | | [facility], | | | | | | [place] [address] | | | | | | [phone] | | | | | | | [...] might be different f rom the original. [facility] INPATIENT HOSPITAL DISCHARGE SUMMARY & INTERDISCIPLINARY INSTRUCTIONS Patient: Chastity Galdamez CSN: [id number] Admission Date: 10/12/2010 Discharge Date: 10/22/2010 Attending Physician: Kalyan Arias MD PCP: Travis Cruz MD Service: [facility] Orthopaedics & Rehabilitation Diagnoses Principal Final Diagnosis: [...] WBAT Discharge POLST completed No Destination: Destination: [facility] Condition on Discharge Good Discharge Follow Up Provider and Clinic: Tesfaye Saenz, Orthopaedic Surgery . Appointment: Please call clinic to make appointment for 2 weeks after your surgery for sut ure/staple removal and wound check. Call [phone] to arrange appointment date and time. Outpatient antibiotics: [facility] referral has been made (for outpatient antibiotics). -While on outpatient antibiotics, weekly CBC/diff, CMP, ESR, & CRP should be checked, with results faxed to Dr. Teresa or Elvia SPENCE at [facility] clinic (fax #[phone]). Current Discharge Medication List START taking these [...] W-FE,OTHER MIN (CENTRUM ORAL) Take by mouth. [place]-3 Fatty Acids-Vitamin E (FISH OIL) 1,000 mg [...] administration instructions. - Call orthopedic clinic at [phone] if any persistent, localized swelling that does [...] and ask for the orthopaedic surgery resident juvenile probation officer. Additional postop instructions/ What to expect: -Apply [...] feel that you will need more, call [phone] during business hours in order to get a new prescription. Please allow 48 hours for re fills to be processed. - Schedule II narcotics can NOT be called in to a pharmacy. Please arrange for someone to picker tender your prescription or allow additional time for [...] 2 weeks (or as previously scheduled). Call [phone] to confirm or schedul e this appointment. [...] Condition on Discharge: Improved Discharging Patient To: [facility] Facility Date and Time of Discharge Summary [...] + + + +---------+ + + | [place]-3 Fatty | Take by mouth. | | [...] 11 Date: 10/23/2010 Patient: CHASTITY Osei TALLY [id number] Interval Hx: Afebrile. Wants to go home. [...] to Dr. Teresa or Elvia SPENCE at [facility] clinic (fax #[phone]). -Dispo plan: pt requires 3 days of flagyl treatment for C. Diff before discharge to long-term facility. D/C to long-term facility today oster, Samuel Evangelista MD - 10/22/2010 7:24 AM PST Ortho Progress Note Hospital Day: 10 Date: 10/22/2010 Author: SAMUEL BOWEN MD Patient: CHASTITY Osei TALLY [id number] Interval Hx: Afebrile. WBC up yesterday and [...] Elvia Putnam PA at [facility] clinic (fax #[phone]). -Dispo plan: pt requires 3 days of flagyl treatment for C. Diff before discharge to skill ed nursing facility. Possible D/C to long-term facility today Samuel Montaño MD - 10/21/2010 7:16 AM PST Ortho Progress Note Hospital Day: 9 Date: 10/21/2010 Author: SAMUEL BOWEN MD Patient: CHASTITY GALDAMEZ [id number] Interval Hx: Afebrile overnight. Comfortable and without [...] Dr. Teresa or Elvia Putnam PA at [facility] clinic (fax #[phone]). -Dispo plan: pt requires 3 days of flagyl treatment for C. Diff before discharge to skill ed nursing facility. Plan to D/C to long-term facility on Saturday10/22/10. Lucero Petersen M D [...] kg/(m^2)FIO2 (%): 30 fraction of O2 (10/14/10 5315)O2 Delivery Device: None (room air) (10/20/10 8432) Intake/Output Summary (Last 24 hours) at 10/20/10 [...] care for this patient. LUCERO KNOX MD [address] Clinical Hospitalist Service [facility] DEPARTMENT: Hosp ([facility])- [phone] Place of Service: IP - 179[address] [facility] [id number] CPT: 58103 Subsequent Visit Exp Prob Foc/Mod Complexity 25 min I spent 25 minutes ghse-lz-yest with this patient of which greater than [...] patient is discharged. Please notify [facility] clinic [id number] re: discharge date, where patient is going (i.e. home, SNF ) and home IV provider if applicable. [facility] Department of Infectious Disease Outpatient IV Antibiotic Therapy Clinic ([facility]) Pager ID: [phone] Mail Code B300 [place] [address] [facility] teaching note: Education and training for [...] PCP . I gave the patient my [facility] business card, and let them know that our clinical support manager, Tonja susana Keller, will be contacting them [...] antibiotics occur, we will ask the [facility] infusion agency to alter the dose of antibiotics, or even change the antibiotics. I expla ined that we will communicate patient's progress and plan with PCP, surgeon, and the home in [email or web address]. I reviewed the possible complications PICC lines [...] care. I provided the patient with the [facility] welcome letter that reiterates the above teaching. I spent 25 minutes in education and training in patient self management for IV antibiotic a nd PICC line use with greater than 50% spent on counseling and/or coordination of care. [facility] DEPARTMENT: IDC INFECT DIS CONSULT - [id number] Place of Service: Inpatient Date of Service: 10/20/2010 CSN: [id number] Suggested Level of Care: 50819- Subsequent hosp care, 25 min Javier Bunn [...] she may arrange timely follow up in [facility] clinic. While on outpatient antibiotics, weekly CBC/diff, CMP, ESR, & CRP should be checked, with results faxed to Dr. Teresa or Elvia SPENCE at [facility] clinic (fax #[phone]). -Please ensure there is a baseline CBC, CMP, ESR, and CRP prior to discharge.--ordered tod ay -Dispo plan: pt requires 3 days of flagyl treatment for C. Diff before discharge to [facility]. Plan to D/C to long-term facility on Saturday10/22/10. Lucero Petersen MD - [...] (pt does not want insulin coverage) (10/18/10 1474) Lab Results Component Value Date INR 1.07 [...] Prophylaxis: Per primary team. LUCERO KNOX MD [employer] Operatortourist agent Clinical Hospitalist Service [facility] Medicine Department of Medicine [facility] DEPARTMENT: Hosp ([facility])- [phone] Place of Service: - [address] Modifiers:GC Resident Involved: No CPT: 53695 Subsequent Visit Exp Prob Foc/Mod Complexity 25 min I spent 25 minutes vixa-mp-sshq with this patient of which greater than [...] Intake/Output Summary (Last 24 hours) at 10/19/10 0677 Last data filed at 10/19/10 0422 Gross [...] Prophylaxis: Per primary team. LUCERO KNOX MD [employer] Operatortourist agent Clinical Hospitalist Service Division of Hospital Medicine Department of Medicine [facility] DEPARTMENT: Hosp ([facility])- [phone] Place of Service: IP - Modifiers:GC Resident Involved: No CPT: 48044 Subsequent Visit Exp Prob Foc/Mod Complexity 25 min I spent 25 minutes wzik-sr-ladh with this patient of which greater than [...] as well as aspirate LUCERO KNOX MD [employer] Operatortourist agent Clinical Hospitalist Service [facility] Medicine Department of Medicine [facility] EPIC DEPARTMENT: Hosp ([facility])- [phone] Place of Service: IP - 33295 Modifiers:GC Resident Involved: No CPT: 89584 Subsequent Visit Detailed/High complexity 35 min I spent 40 minutes eyng-iz-drmt with this patient of which greater than [...] Cohen MD - 10/16/2010 9:36 PM PST [facility] ORTHOPAEDIC SURGERY POST OPERATIVE CHECK IDENTIFICATION: Patient: [...] consult. WBAT BLE xrays Jillian Farfan MD [facility] Department of Orthopaedics & Rehabilitation [address] [facility] Mail Code: OP31 [facility] [address] [email or web address] Pager: [phone] The above was formulated both independently and [...] immobile. Wearing Priscilla Hose. DAVID KNIGHT MD [facility] 6A [employer] Operatortourist agent Clinical Hospitalist Service [facility] DEPARTMENT: Hosp ([facility])- [phone] Place of Service: IP - [address] [facility] [id number] Modifiers:GC Resident Involved: No Service: Ortho Suggested CPT: 61887 Subsequent Visit Exp Prob Foc/Mod Complexity 25 min I spent more than 30 minutes iqxg-cw-pidh with the patient of which greater than 50% was sp ent co-ordinating care acob, Daivd Evangelista MD - 10/15/2010 7:57 AM PST CLINICAL HOSPITALIST SERVICE ([facility])-PROGRESS NOTE HOSPITAL DAY: 3 Author: DAVID [...] she is quite immobile. DAVID KNIGHT MD [address] Water [employer] Operatortourist agent Clinical Hospitalist Service [facility] DEPARTMENT: Hosp ([facility])- [phone] Place of Service: - [facility] [id number] Modifiers:GC Resident Involved: No Service: Primary Suggested CPT: 24329 Subsequent Visit Detailed/High complexity 35 min I spent more than 35 minutes ozed-ra-igix with the patient of which greater than [...] + + | [facility] | [address] | [place], [place] | | | THERAPY | [address] | [address] | | + + + + + [...] [facility] | [address] | [place] [address] | | | PATHOLOGY | [address] [...] + + | [facility] | [address] | [place] [address] | | | PATHOLOGY | [address] [...] [facility] | [address] | [place] [address] | | | PATHOLOGY | [address] [...] | [facility] | [address] [facility] | [place], [place] | | | THERAPY | [address] | [address] | | + + + + + [...] [facility] | [address] | [place], [place] | | | SUPRIYA POINT OF CARE | [address] | [address] | | | TESTS | | | [...] | [facility] DE[facility] | [address] | [place] [address] | | | PATHOLOGY | [address] [...] DEPARTMENT OF | [address] | [place] [address] | | | PATHOLOGY | [address] [...] | [facility] DEPART[facility] | [address] | [place] [address] | | | PATHOLOGY | [address] [...] + + + | [facility] | [address] | [place], [place] | | | THERAPY | [address] | [address] | | + + + + + [...] | + + + + + | [facility] DEPARTMENT OF | [address] | [place] [address] | | | PATHOLOGY | [address] [...] [facility] | [address] | [place] [address] | | | PATHOLOGY | [address] [...] DEPARTMENT OF | [address] | [place] [address] | | | PATHOLOGY | [address] [...] Bunch, | | | | | | CORE BLOWER | | | | | | | | | | | | | | | | | | | | | | | | | | | | | |Electronically Signed by: Angelo Bunch CORE BLOWER | | | | + + + + +-------- ------+ + + | Specimen | + + | | + + + + + + + | Performing | Address | City/State/Zipcode | Phone Number | | Organization | | | | + + + + + | [facility] | [address] | [place], [place] | | | THERAPY | [address] | [address] | | + + + + + [...] | [facility] | [address] [facility] | [place], [place] | | | THERAPY | [facility] | [address] | | + + + + + [...] [facility] | [address] | [place], [place] | | | THERAPY | [address] | [address] | | + + + + + [...] [facility] | REGIONAL | | [place] [address] | LABORATORY | | [place] [address] | | + + + + + + + + | Performing | Address | City/State/Zipcode | Phone Number | | Organization | | | | + + + + + | [facility] | [address] | [place] [address] | | | LABORATORY | | | [...] DEPARTMENT OF | [address] | [place] [address] | | | PATHOLOGY | [address] [...] DEPARTMENT OF | [address] | [place] [address] | | | PATHOLOGY | [address] [...] [facility] | [address] | [place] [address] | | | PATHOLOGY | [address] [...] | + + + + + | [facility] | [address] | [place] [address] | | | LABORATORY | | | [...] DEPARTMENT OF | [address] | [place] [address] | | | PATHOLOGY | [address] [...] RESPIRATORY | Oxygen device on | | [facility] | | | CARE | standby, nasal canula. | | RESPIRATORY | | | | Electronically | | THERAPY | | | | Signed by: Cha Miles, | | | | | | CORE BLOWER | | | | | | | [...] [facility] | [address] | [place], [place] | | | THERAPY | [address] | [address] | | + + + + + [...] DEPARTMENT OF | [address] | [place] [address] | | | PATHOLOGY | [address] [...] [facility] | [address] | [place] [address] | | | PATHOLOGY | [address] [...] [facility] | [address] | [place] [address] | | | PATHOLOGY | [address] [...] Long 1cm Trimmed Lot # (or Sticker): [id number] INSERTION SITE: | | | - Cephalic [...] CXR Placed [place]: [place] [id number] | | | Assisted by: na | [...] CATHETERProduct Name: BoogieConstruction: | | Single4 Fr60cm [id number] TrimmedLot # (or Sticker): [id number] SITE: - | | CephalicLeftLocal anesthetic used: [...] by CXRPlaced by: Anabella Ramirez RN IVT [id number] | | by: na | |PICC CATHETER | |Product Name: Boogie | |Construction: Single | |4 Fr | |60cm Long | |1cm Trimmed | |Lot # (or Sticker): [id number] | | | |INSERTION SITE: - Cephalic [...] | |Placed by: [place] [id number] | |Assisted by: na | + + X-RAY PORTABLE CHEST 1 VIEW (10/19/2010 10:45 AM PST) + + + + + + | Component | Value | Ref Range | Performed | Pathologist | | | | | At | Signature | + + + + + + | X-RAY | STUDY: CA CHEST 1 VIEW | | | | [...] | + +---------+ + + | [facility] DEPARTMENT OF | | | | | [...] Guardado, | | | | | | CORE BLOWER | | | | + + + + + + + + | Specimen | + + | | + + + + + + + | Performing | Address | City/State/Zipcode | Phone Number | | Organization | | | | + + + + + | [facility] | [address] | [place], [place] | | | THERAPY | [address] | [address] | | + + + + + [...] [facility] | [address] | [place] [address] | | | PATHOLOGY | [address] [...] DEPARTMENT OF | [address] | [place] [address] | | | PATHOLOGY | [address] [...] | [facility] DEPART[facility] | [address] | [place] [address] | | | PATHOLOGY | [address] [...] [facility] | [address] | [place], [place] | | | THERAPY | [address] | [address] | | + + + + + [...] [facility] | [address] | [place], [place] | | | SUPRIYA POINT OF CARE | [address] | [address] | | | TESTS | | | [...] | + + + + + | [facility] | [address] | [place] [address] | | | PATHOLOGY | [address] [...] + + + | [facility] ([address] [facility] | REGIS | | [place] [address] [address] [facility] [facility] | REGIONAL | | [place] [address] | LAB-MICRO | + + + + + + + + | Performing | Address | City/State/Zipcode | Phone Number | | Organization | | | | + + + + + | [facility] | [address] | [place] [address] | | | LAB-MICRO | | | [...] | [facility] DEPART[facility] | [address] | [place] [address] | | | PATHOLOGY | [address] [...] (H) | 60 - 99 mg/dL | [facility] - | | | GLUCOSE, | | [...] [facility] | [address] | [place], [place] | | | SUPRIYA [place] [facility] | [address] | [address] | | | TESTS | | | [...] [facility] | [address] | [place], [place] | | | JADA EPPS OF CARE | [address] | [address] | | | TESTS | | | [...] [facility] DEPARTMENT OF | [address] | [place] [address] | | | PATHOLOGY | [address] [...] [facility] | [address] | [place] [address] | | | PATHOLOGY | [address] [...] [facility] | [address] | [place] [address] | | | PATHOLOGY | [address] [...] | [facility] | [address] [facility] | [place], [place] | | | THERAPY | [address] | [address] | | + + + + + [...] [facility] | [address] | [place], [place] | | | THERAPY | [address] | [address] | | + + + + + [...] [facility] | [address] | [place], [place] | | | THERAPY | [address] | [address] | | + + + + + [...] | + +---------+ + + | [facility] DEPARTMENT OF | | | | | [...] consider | | | intensifying therapy [facility] ([facility] [address] [facility]) | | | [facility] [address] [facility] | | | [place] [address] | | + + + + + + + + | Performing | Address | City/State/Zipcode | Phone Number | | Organization | | | | + + + + + | [facility] | [address] | [place] [address] | | | LABORATORY | | | [...] [facility] | [address] | [place], [place] | | | THERAPY | [address] | [address] | | + + + + + [...] [facility] | [address] | [place], [place] | | | THERAPY | [address] | [address] | | + + + + + [...] [facility] | [address] | [place], [place] | | | SUPRIYA POINT OF CARE | [address] | [address] | | | TESTS | | | [...] [facility] | [address] | [place], [place] | | | JADA EPPS OF CARE | [address] | [address] | | | TESTS | | | [...] - [facility] | [address] | [place], [place] | | | [place] [facility] | [facility] | [address] | | | TESTS | | | [...] [facility] | [address] | [place], [place] | | | THERAPY | [address] | [address] | | + + + + + [...] [facility] | [address] | [place] [address] | | | PATHOLOGY | [address] [...] [facility] DEPARTMENT OF | [address] | [place] [address] | | | PATHOLOGY | [address] [...] [facility] DEPARTMENT OF | [address] | [place] [address] | | | PATHOLOGY | [address] [...] DEPARTMENT OF | [address] | [place] [address] | | | PATHOLOGY | [address] [...] [facility] DEPARTMENT OF | [address] | [place] [id number] | | | PATHOLOGY | [address] [...] + + + | [facility] | [address] | [place] [address] | | | LAB-MICRO | | | [...] + + + | [facility] | [address] | [place] [address] | | | LAB-MICRO | | | [...] Lab) | | | | | | [facility] | | | | | | [address] | | [address] | | | | | | [place] [address] | | | | + + + + + + + + | Specimen | + + | | + + + + + + + | Performing | Address | City/State/Zipcode | Phone Number | | Organization | | | | + + + + + | [facility] | [address] | [place] [address] | | | LAB-MICRO | | | [...] + + + | [facility] | [address] | [place] [address] | | | LAB-MICRO | | | [...] Lab) | | | | | | [facility] | | | | | | [address] | | [address] | | | | | | [place] [address] | | | | + + + + + + + + | Specimen | + + | | + + + + + + + | Performing | Address | City/State/Zipcode | Phone Number | | Organization | | | | + + + + + | [facility] | [address] | [place] [address] | | | LAB-MICRO | | | [...] + + + | [facility] | [address] | [place] [address] | | | LAB-MICRO | | | [...] | | | | | | [facility] ([facility]) | | | | | | [facility] | | | | | | [facility] | | | | | | [address] [facility] | | | | | | [place], | | | | | | [place] [address] | | | | + + + + + + + + | Specimen | + + | | + + + + + + + | Performing | Address | City/State/Zipcode | Phone Number | | Organization | | | | + + + + + | [facility] | [address] | [place] [address] | | | LAB-MICRO | | | [...] Lab) | | | | | | [facility] | | | | | | [address] | | | [address] | | | | | | [place] [address] | | | | + + + + + + + + | Specimen | + + | | + + + + + + + | Performing | Address | City/State/Zipcode | Phone Number | | Organization | | | | + + + + + | [facility] | [address] | [place] [address] | | | LAB-MICRO | | | [...] + + + | [facility] | [address] | [place] [address] | | | LAB-MICRO | | | [...] + + + | [facility] | [address] | [place] [address] | | | LAB-MICRO | | | [...] Lab) | | | | | | [facility] | | | | | | [address] | | | [address] | | | | | | [place] [address] | | | | + + + + + + + + | Specimen | + + | | + + + + + + + | Performing | Address | City/State/Zipcode | Phone Number | | Organization | | | | + + + + + | [facility] | [address] | [place] [address] | | | LAB-MICRO | | | [...] + + + | [facility] | [address] | [place] [address] | | | LAB-MICRO | | | [...] + + + + + | [facility] | [address] | [place] [address] | | | LAB-MICRO | | | [...] [facility] | | | | | | [facility] | | | | | | [address] | | | | | | [place], | | | | | | [place] [address] | | | | + + + + + + + + | Specimen | + + | | + + + + + + + | Performing | Address | City/State/Zipcode | Phone Number | | Organization | | | | + + + + + | [facility] | [address] | [place] [address] | | | LAB-MICRO | | | [...] + + + | [facility] | [address] | [place] [address] | | | LAB-MICRO | | | [...] + + + | [facility] REG[facility] | [address] | [place] [address] | | | LAB-MICRO | | | [...] Lab) | | | | | | [facility] | | | | | | [address] | | | [address] | | | | | | [place] [address] | | | | + + + + + + + + | Specimen | + + | | + + + + + + + | Performing | Address | City/State/Zipcode | Phone Number | | Organization | | | | + + + + + | [facility] | [address] | [place] [address] | | | LAB-MICRO | | | [...] + + + | [facility] | [address] | [place] [address] | | | LAB-MICRO | | | [...] + + + + + | [facility] | [address] | [place] [address] | | | LAB-MICRO | | | [...] | | | | | | [facility] | | | | | | [address] | | | | | [address] | | | | | | [place] [address] | | | | + + + + + + + + | Specimen | + + | | + + + + + + + | Performing | Address | City/State/Zipcode | Phone Number | | Organization | | | | + + + + + | [facility] | [address] | [place] [address] | | | LAB-MICRO | | | [...] [facility]erman[facility] | | | | | | [address] | | | | | | [place], | | | | | | [place] [address] | | | | + + + + + + + + | Specimen | + + | | + + + + + + + | Performing | Address | City/State/Zipcode | Phone Number | | Organization | | | | + + + + + | [facility] | [address] | [place] [address] | | | LAB-MICRO | | | [...] + + + | [facility] | [address] | [place] [address] | | | LAB-MICRO | | | [...] + + + + + | [facility] | [address] | [place] [address] | | | LAB-MICRO | | | [...] Lab) | | | | | | [facility] | | | | | | [address] | | | | [address] | | | | | | [place] [address] | | | | + + + + + + + + | Specimen | + + | | + + + + + + + | Performing | Address | City/State/Zipcode | Phone Number | | Organization | | | | + + + + + | [facility] | [address] | [place] [address] | | | LAB-MICRO | | | [...] + + + | [facility] | [address] | [place] [address] | | | LAB-MICRO | | | [...] RLB | | | | | | ([facility] by [facility] Lab) | | | | | | [facility] | | | | | | [address] | | | | | | [address] | | | | | | [place] [address] | | | | + + + + + + + + | Specimen | + + | | + + + + + + + | Performing | Address | City/State/Zipcode | Phone Number | | Organization | | | | + + + + + | [facility] | [address] | [place] [address] | | | LAB-MICRO | | | [...] + + + | [facility] | [address] | [place] [address] | | | LAB-MICRO | | | | + + + + + CULTURE, TISSUE (10/16/2010 9:50 AM PST) + + + + + + | Component | Value | Ref Range | Performed | Pathologist | | | | | At | Signature | + + + + + + | SOURCE BODY | Site 2, right hip, | | [facility] | | | SITE | surgical, hold [...] NW | | | | | | [address] | | | | | | [place], | | | | | | [place] [address] | | | | + + + + + + + + | Specimen | + + | | + + + + + + + | Performing | Address | City/State/Zipcode | Phone Number | | Organization | | | | + + + + + | [facility] | [address] | [place] [address] | | | LAB-MICRO | | | [...] + + + | [facility] | [address] | [place] [address] | | | LAB-MICRO | | | [...] + + + | [facility] | [address] | [place] [address] | | | LAB-MICRO | | | [...] Lab) | | | | | | [facility] | | | | | | [address] | | | [address] | | | | | | [place] [address] | | | | + + + + + + + + | Specimen | + + | | + + + + + + + | Performing | Address | City/State/Zipcode | Phone Number | | Organization | | | | + + + + + | [facility] | [address] | [place] [address] | | | LAB-MICRO | | | [...] + + + | [facility] | [address] | [place] [address] | | | LAB-MICRO | | | [...] RLB | | | | | | ([address]) | | | | | | [facility] | | | | | | [address] | | | | | | [address] | | | | | | [place] [address] | | | | + + + + + + + + | Specimen | + + | | + + + + + + + | Performing | Address | City/State/Zipcode | Phone Number | | Organization | | | | + + + + + | [facility] | [address] | [place] [address] | | | LAB-MICRO | | | [...] | + + + + + | [facility] | [address] | [place] [address] | | | LAB-MICRO | | | [...] [facility] | | | | | | [facility] | | | | | | [address] | | | | | | [place], | | | | | | [place] [address] | | | | + + + + + + + + | Specimen | + + | | + + + + + + + | Performing | Address | City/State/Zipcode | Phone Number | | Organization | | | | + + + + + | [facility] | [address] | [place] [address] | | | LAB-MICRO | | | [...] | + + + + + | [facility] | [address] | [place] [address] | | | LAB-MICRO | | | [...] [facility] DE[facility] | [address] | [place] [address] | | | PATHOLOGY | [address] [...] [facility] | [address] | [place] [address] | | | PATHOLOGY | [address] [...] [facility] | REGIONAL | | [place] [address] | LABORATORY | | [place] [address] | | + + + + + + + + | Performing | Address | City/State/Zipcode | Phone Number | | Organization | | | | + + + + + | [facility] | [address] | [place] [address] | | | LABORATORY | | | [...] + + + | RLB ([address] [facility]) | [facility] | | [facility] [address] | REGIONAL | | [place] [address] | LABORATORY | + + + + + + + + | Performing | Address | City/State/Zipcode | Phone Number | | Organization | | | | + + + + + | [facility] | [address] | [place] [address] | | | LABORATORY | | | [...] [facility] | [address] | [place], [place] | | | THERAPY | [address] | [address] | | + + + + + OPERATION RECORD (10/16/2010 12:00 AM PST) + + + | Narrative | Performed At | + + + | [id number] | | | [id number] CHAD | | | CHASTITY Osei [id number] Date: | | | 10/16/2010 Attending Surgeon: | | | Kalyan Arias M.D. Engraver Set Up Operator(s): | | | Raymond Valdes M.D. Preoperative [...] She presented as an ED transfer to [facility] approximately 3 days | | | prior [...] | multimodal DVT prophylaxis. Kalyan Arias M.D. [facility] / | | | [id number] / [id number] / [id number] / | | | | | + + + + + | Procedure Note | + + | Kalyan Arias MD - 10/17/2010 9:21 AM PST [id number] | | [id number] [facility] | | [id number] Date: 10/16/2010 Attending Surgeon: Kalyan | | Ortiz Arias M.D. Engraver Set Up Operator(s): Raymond Valdes M.D. Preoperative | | Diagnosis(es):1. [...] who is almost 3 years out from [facility] total hip arthroplasty. She had [...] She presented as an ED transfer to [facility] approximately 3 | | days priorto the [...] aerobic cultures and blood culture bottles per [facility] biopsy protocol. The fascia | | was [...] | will receivemultimodal DVT prophylaxis. Kalyan Arias M.D.[facility] / [id number] / [id number] | | / 72989 / T: 10/16/2010 | |minimally symptomatic for her, and she did well with the arthroplasty | |itself. She presented as an ED transfer to [facility] approximately 3 days prior | |to the [...] | | | |Kalyan Arias M.D. | |[facility] / | |[id number] / [id number] / [id number] / | | | | | | [...] AHN | [address] | [place], [place] | | | [facility] [place] | [facility] | [address] | | | TESTS | | | [...] [facility] | [address] | [place] [address] | | | PATHOLOGY | [address] [...] + + + + | PRODUCT | [id number] | | [facility] | | | UNIT [...] + + + + | BLOOD | 10492 | | [facility] | | | PRODUCT [...] DEPARTMENT OF | [address] | [place] [address] | | | PATHOLOGY | [address] [...] + + + + | PRODUCT | [id number] | | [facility] | | | UNIT [...] + + + + | BLOOD | 22994 | | [facility] | | | PRODUCT [...] [facility] | [address] | [place] [address] | | | PATHOLOGY | [address] [...] JIMY | [address] | [place], [place] | | | [facility] [place] | [address] | [address] | | | TESTS | | | [...] | | | POC | | | JDAA EPPS | | | | | | [...] JIMY | [address] | [place], [place] | | | [facility] [place] | [facility] | [address] | | | TESTS | | | | + + + + + CAPILLARY BLOOD GLUCOSE, POC (10/14/2010 11:02 PM PST) + +---------+ + + + | Component | Value | Ref Range | Performed | Pathologist | | | | | At | Signature | + +---------+ + + + | BLOOD | 142 (H) | 60 - 99 mg/dL | [facility] - | | | GLUCOSE, | | [...] AHN | [address] | [place], [place] | | | SUPRIYA POINT OF CARE | [address] | [address] | | | TESTS | | | [...] | | | | | | Dr. DEY CAPELLAN | | | | + + + + + + + + | Specimen | + + | | + + + +---------+ + + | Performing | Address | City/State/Zipcode | Phone Number | | Organization | | | | + +---------+ + + | [facility] DEPARTMENT OF | | | | | [...] [facility] | [address] | [place], [place] | | | THERAPY | [address] | [address] | | + + + + + [...] view image for the detailed interpretation from [employer] results. | CARDIOLOGY | + + + + + + + + | Performing | Address | City/State/Zipcode | Phone Number | | Organization | | | | + + + + + | [facility] | [address] | [place], [place] | | | CARDIOLOGY | [address] | [address] | | + + + + + [...] | + + + + + | [facility] | [address] | [place] [address] | | | LAB-MICRO | | | [...] DEPARTMENT OF | [address] | [place] [address] | | | PATHOLOGY | [address] [...] | + + + + + | [facility] DE[facility] | [address] | [place] [address] | | | PATHOLOGY | [address] [...] [facility] | [address] | [place] [address] | | | PATHOLOGY | [address] [...] Lab) | | | | | | [facility] | | | | | | [address] | | | | | | [address] | | | | | | [place] [address] | | | | + + + + + + + + | Specimen | + + | | + + + + + + + | Performing | Address | City/State/Zipcode | Phone Number | | Organization | | | | + + + + + | [facility] | [address] | [place] [address] | | | LAB-MICRO | | | [...] DEPARTMENT OF | [address] | [place] [address] | | | PATHOLOGY | [address] [...] DEPARTMENT OF | [address] | [place] [address] | | | PATHOLOGY | [address] [...] [facility] | [address] | [place] [address] | | | PATHOLOGY | [address] [...] + + + | [facility] | [address] | [place] [address] | | | LAB-MICRO | | | [...] + + + | [facility] | [address] | [place] [address] | | | LAB-MICRO | | | [...] | + +---------+ + + | [facility] DEPARTMENT OF | | | | | [...] DEPARTMENT OF | [address] | [place] [address] | | | PATHOLOGY | [address] [...] DEPARTMENT OF | [address] | [place] [address] | | | PATHOLOGY | [address] [...] DEPARTMENT OF | [address] | [place], [place] [address] | | | PATHOLOGY | [address] [...] | + + + + + | [facility] | [address] | [place] [address] | | | LAB-MICRO | | | [...] [facility] | [address] | [place] [address] | | | PATHOLOGY | [address] [...] [facility] DEPARTMENT OF | [address] | [place] [address] | | | PATHOLOGY | [address] [...] DEPARTMENT OF | [address] | [place] [address] | | | PATHOLOGY | [address] [...] [facility] | [address] | [place] [address] | | | PATHOLOGY | [address] [...] [facility] | REGIONAL | | [place] [address] | LABORATORY | | [place] [address] | | + + + + + + + + | Performing | Address | City/State/Zipcode | Phone Number | | Organization | | | | + + + + + | [facility] | [address] | [place] [address] | | | LABORATORY | | | [...] | + +---------+ + + | [facility] DEPARTMENT OF | | | | | [...] | | | (after last modification) on [facility] | | | | | | | [...]
--- OUTSIDE RECORDS SUMMARY | ~2020-03-28 | XMS | Encounter Summary ---
Demographics + + + | Address | [address] | | | [place] [address] | + + + | Home Phone [...] Team Providers + +------+ + | Care Local Company Intermodal Truck Driver Name | Role | [...] [facility]ENESES | | | | | [address] | [place], [place] | | | | | [place], [facility] floor | [address] | | | | | [place], [place] | [phone] | | | | | [address] | | | | | | [phone] | | | +--------+ + + + [...]
--- OUTSIDE RECORDS SUMMARY | ~2020-03-28 | XMS | Encounter Summary ---
Demographics + + + | Address | [address] | | | [place] [address] | + + + | Home Phone [...] Team Providers + +------+ + | Care Building Inspection Engineer Name | Role | Phone | [...] as of this encounter Progress Notes Interface, Photographic Reproduction Technician In - 06/19/2006 1:01 AM PDT [place] [facility] and [place] [address] [address] FAX Department of [facility]opaedics[facility] [id number] September 16, 2001 Kalyan Wu M.D. Department of Orthopedics and Rehabilitation [facility] RE: SHELBY GALDAMEZ MR #: [id number] DOS: 09/16/2001 Dear Nasir: I am referring [...] contact me directly. Sincerely, Lloyd Garcia M.D. Glass Pulverizer Equipment Operator Orthopedics and Rehabilitation / [id number] / [id number] / [id number] / [id number] C: 10/02/2001 [facility] cc: Helio Mann M.D. P.OJuan Jose [address] [id number] signed by Interface, Photographic Reproduction Technician In at 06/19/2006 1: 01 AM PDTdocumented in this encounter Plan of Treatment Not on filedocumented as of this encounter Visit Diagnoses Not on filedocumented in this encounter"
--- OUTSIDE RECORDS SUMMARY | ~2020-03-28 | XMS | Encounter Summary ---
Demographics + + + | Address | [address] | | | [place] [address] | + + + | Home Phone [...] Providers + +------+ + | Care Cloth Beamer Name | Role | Phone | + +------+ + | Marta Jenkins WEB MARKETING ASSISTANT | PCP | | + +------+ + Encounter Details +--------+ + + + + | Date | Type | Department | Care Team | Description | +--------+ + + + + | 11/19/ | Documentati | Digestive Health | Clinic, Surgery | | | 2019 | on | [facility] [address] | | | | | | Akil Gil | | | | | | Mailcode: [place] | | | | | | for Health and | | | | | | Healing, Building [address] | | | | | | [facility] [place] | | | | | | [address] | | | | | | [phone] | | | +--------+ + + + [...]
--- OUTSIDE RECORDS SUMMARY | ~2020-03-28 | XMS | Encounter Summary ---
Demographics + + + | Address | [address] | | | [place] [address] | + + + | Home Phone [...] Team Providers + +------+ + | Care Oven Roaster Name | Role | Phone | + [...] as of this encounter Progress Notes Interface, Animal Impersonator In - 04/28/2005 6:17 PM PDTClinic Date: [...] is completed this weekend. Lloyd Garcia M.D. Health Services Information Specialist, Orthopedics and Rehabilitation / [id number] / [id number] / [id number] / [id number] cc: Ninfa Guillen M.D. [address] [place] [address], [place] [id number] signed by Interface, Animal Impersonator In at 04/28/2005 6:1 7 PM PDTdocumented in this encounter Plan of Treatment Not on filedocumented as of this encounter Visit Diagnoses Not on filedocumented in this encounter"
--- OUTSIDE RECORDS SUMMARY | ~2020-03-28 | XMS | Encounter Summary ---
Demographics + + + | Address | [address] | | | [place] [address] | + + + | Home Phone [...] Providers + +------+ + | Care Program Director Cable Television Name | Role | Phone | + +------+ + | Travis Mcginnis MD | PCP | | + +------+ + Encounter Details +--------+ + + + + | Date | Type | Department | Care Team | Description | +--------+ + + + + | 08/03/ | Hospital | Diagnostic Imaging | | | | 2009 | Encounter | Services at [facility] | | | | | | [address] | | | | | | Roxann Ayala Luigi | | | | | | [facility] | | | | | | [place], [place] | | | | | | [address] | | | | | | [phone] | | | +--------+ + + + [...] + + + +---------+ + + | [place]-3 Fatty | Take by mouth. | | [...] of | | | | | | U0hqebaueg/superior | | | | | | corner, [...]
--- OUTSIDE RECORDS SUMMARY | ~2020-03-28 | XMS | Encounter Summary ---
Demographics + + + | Address | [address] | | | [place] [address] | + + + | Home Phone [...] Providers + +------+ + | Care Insurance Analyst Name | Role | Phone | [...] as of this encounter Progress Notes Interface, Chain Hooker In - 04/28/2005 10:57 PM PDTClinic Date: [...] longer any fluid pocket. Lloyd Garcia M.D. Account Assistant, Orthopedics and Rehabilitation / [id number] / [id number] / [id number] / [id number] cc: Everett Ibrahim MD [address] [place], [place] [id number] signed by Interface, Chain Hooker In at 04/28/2005 10:57 PM PDTdocumented in this encounter Plan of Treatment Not on filedocumented as of this encounter Visit Diagnoses Not on filedocumented in this encounter"
--- OUTSIDE RECORDS SUMMARY | ~2020-03-28 | XMS | Encounter Summary ---
Demographics + + + | Address | [address] | | | [place] [address] | + + + | Home Phone [...] + | Casnadra Smith | ROBERTO | [place] | | + + + + + Care Team Providers + +------+ + | Care College Advisor Name | Role | Phone | + +------+ + PCP | Unavailable | + +------+ + Encounter Details +--------+ + + + + | Date | Type | Department | Care Team | Description | +--------+ + + + + | // | Results | | Other, Faculty | | | 2003 | Only | | [phone] | | +--------+ + + + + [...] | + + + + + | [facility] DEPARTMENT OF | [address] | [place] [address] | | | PATHOLOGY | [address] | | | + + + + + | [facility] OF | [address] | [place] [address] | | | PATHOLOGY | [address] [...] | + + + + + | [facility] | [address] | [place] [address] | | | PATHOLOGY | [address] | | | + + + + + | [facility] | [address] | [place] [address] | | | PATHOLOGY | [address] [...] + + + | [facility] | [address] | [place] [address] | | | LABORATORY | | | [...] DEPARTMENT OF | [address] | [place] [address] | | | PATHOLOGY | [address] | | | + + + + + | [facility] DEPARTMENT OF | [address] | [place] [address] | | | PATHOLOGY | [address] [...] | + + + + + | [facility] DEPARTMENT OF | [address] | [place] [address] | | | PATHOLOGY | [address] | | | + + + + + | [facility] DEPARTMENT OF | [address] | [place] [address] | | | PATHOLOGY | [address] [...] | + + + + + | [facility] DEPARTMENT OF | [facility] | [place] [address] | | | PATHOLOGY | [address] | | | + + + + + | [facility] DEPARTMENT OF | [address] | [place] [address] | | | PATHOLOGY | [address] [...] | + + + + + | [facility] | [address] | [place] [address] | | | PATHOLOGY | [address] | | | + + + + + | [facility] | [address] [place] [address] | [place] [address] | | | PATHOLOGY | [address] [...] | + + + + + | [facility] | [address] | [place] [address] | | | PATHOLOGY | [address] | | | + + + + + | [facility] | [facility] [address] | [place] [address] | | | PATHOLOGY | [address] [...] DEPARTMENT OF | [address] | [place] [address] | | | PATHOLOGY | [address] | | | + + + + + | [facility] DEPARTMENT OF | [address] | [place] [address] | | | PATHOLOGY | [address] | | | + + + + + CREATININE, PLASMA (10/04/2003 6:15 AM PST) + +-------+ + + + | Component | Value | Ref Range | Performed | Pathologist | | | | | At | Signature | + +-------+ + + + | CREATININE | 0.8 | 0.6 - 1.1 mg/dL | [facility] | | | PLASMA | | | [...] | + + + + + | [facility] DEPARTMENT OF | [address] | [place] [address] | | | PATHOLOGY | [address] | | | + + + + + | [facility] DEPARTMENT OF | [address] | [place] [address] | | | PATHOLOGY | [address] [...] DEPARTMENT OF | [address] | [place] [address] | | | PATHOLOGY | [address] | | | + + + + + | [facility] DEPARTMENT | [address] | [place] [address] | | | PATHOLOGY | [address] [...] | + + + + + | [facility] DEPARTMENT OF | [address] | [place] [address] | | | PATHOLOGY | [address] | | | + + + + + | [facility] DEPARTMENT OF | [address] | [place] [address] | | | PATHOLOGY | [address] [...] | + + + + + | [facility] | [address] | [place] [address] | | | PATHOLOGY | [address] | | | + + + + + | [facility] | [address] | [place] [address] | | | PATHOLOGY | [address] | | | + + + + + documented in this encounter Visit Diagnoses Not on filedocumented in this encounter"
--- OUTSIDE RECORDS SUMMARY | ~2020-03-28 | XMS | Encounter Summary ---
Demographics + + + | Address | [address] | | | [place] [address] | + + + | Home Phone [...] Team Providers + +------+ + | Care Copy Director Name | Role | Phone | [...] Pavilion | | | | | | [place], [place] | | | | | | [address] | | | | | | [phone] | | | +--------+ + + + [...]
--- OUTSIDE RECORDS SUMMARY | ~2020-03-28 | XMS | Encounter Summary ---
Demographics + + + | Address | [address] | | | [place] [address] | + + + | Home Phone [...] Team Providers + +------+ + | Care Fish Cake Maker Name | Role | Phone | [...] as of this encounter Progress Notes Interface, Weather Observer In - 08/20/2006 3:01 AM PSTCLINIC DATE: [...] primary care provider. Alpa Ritter LPN / [id number] / [id number] / [id number] / Tdocumented in this encounter Plan of Treatment Not on filedocumented as of this encounter Visit Diagnoses Not on filedocumented in this encounter"
--- OUTSIDE RECORDS SUMMARY | ~2020-03-28 | XMS | Encounter Summary ---
Demographics + + + | Address | [address] | | | [place] [address] | + + + | Home Phone [...] Providers + +------+ + | Care Door Frame Builder Name | Role | Phone | [...]
--- OUTSIDE RECORDS SUMMARY | ~2020-03-28 | XMS | Encounter Summary ---
Demographics + + + | Address | [address] | | | [place] [address] | + + + | Home Phone [...] Team Providers + +------+ + | Care Specialist Physician Name | Role | Phone | + +------+ + | Marta Jenkins MARSHMALLOW MACHINE OPERATOR | PCP | | + [...] | Jamie Mailcode: [address] [place], | | | | | [place], [place] | [place] [address] | | | | | [address] | | | | | | [phone] | | | +--------+ + + + [...]
--- OUTSIDE RECORDS SUMMARY | ~2020-03-28 | XMS | Encounter Summary ---
Demographics + + + | Address | [address] | | | [place] [address] | + + + | Home Phone [...] Team Providers + +------+ + | Care Lithographic Retoucher Apprentice Name | Role | Phone | [...] as of this encounter Progress Notes Interface, Meter Supervisor In - 06/19/2006 1:01 AM PDT [place] [facility] and [place] [address] [place], [place] [address] FAX Department of Orthopaedics, [facility] [id number] September 16, 2001 Kalyan Wu M.D. Department of Orthopedics and Rehabilitation [facility] RE: [address]LBY GALDAMEZ MR #: [id number] DOS: 09/16/2001 Dear Nasir: I am referring [...] contact me directly. Sincerely, Lloyd Garcia M.D. Shortage Worker Orthopedics and Rehabilitation / [id number] / [id number] / [id number] / [id number] C: 10/02/2001 [facility] cc: Helio Mann M.D. P.OJuan Jose [address] [id number] signed by Interface, Meter Supervisor In at 06/19/2006 1: 01 AM PDTdocumented in this encounter Plan of Treatment Not on filedocumented as of this encounter Visit Diagnoses Not on filedocumented in this encounter"
--- OUTSIDE RECORDS SUMMARY | ~2020-03-28 | XMS | Encounter Summary ---
Demographics + + + | Address | [address] | | | [place] [address] | + + + | Home Phone [...] Providers + +------+ + | Care Truss Puller Helper Name | Role | Phone | [...] Pavilion | | | | | | [place], [place] | | | | | | [address] | | | | | | [phone] | | | +--------+ + + + [...] | [facility] | [address] [facility] | [place] [address] | | | PATHOLOGY | [address] | | | + + + + + | [facility] | [address] [place] [address] | [place] [address] | | | PATHOLOGY | [address] [...] DEPARTMENT OF | [address] | [place] [address] | | | PATHOLOGY | [address] | | | + + + + + | [facility] | [address] | [place] [address] | | | PATHOLOGY | [address] | | | + + + + + documented in this encounter Visit Diagnoses Not on filedocumented in this encounter"
--- OUTSIDE RECORDS SUMMARY | ~2020-03-28 | XMS | Encounter Summary ---
Demographics + + + | Address | [address] | | | [place] [address] | + + + | Home Phone [...] Providers + +------+ + | Care Corporate Communications Manager Name | Role | Phone [...] as of this encounter Progress Notes Interface, Single Wire Saw Operator In - 2006 1:06 AM PDTCLINIC DATE: 06/24/2003 ORTHOPEDIC CLINIC HISTORY: This is a 43-year-old obese female followed for right hip degenerative joint disease, returns to clinic today having had no relief after her last 2 fluoroscopically guided cortisone injections on October 05, 2002, and January 26, 2003. The x-rays at that time revealed gljkgqud-lj-bkcjvaci degenerative joint disease. I confirmed that the [...] She does continue to drive in from [place] for her care here. She continues to [...] times per day. PHYSICAL EXAMINATION GENERAL: A xxtzqplf-pc-mnqamvvw obese short statured woman who ambulates with [...] authorization has been obtained. Lloyd Garcia M.D. Recruiting Specialist of Orthopedics and Rehabilitation / [id number] / [id number] / [id number] / cc: Ninfa Guillen M.D. [address] [place] [address] [id number] signed by Interface, Single Wire Saw Operator In at 2006 1:06 AM [facility] umented in this encounter Plan of Treatment Not on filedocumented as of this encounter Visit Diagnoses Not on filedocumented in this encounter"
--- OUTSIDE RECORDS SUMMARY | ~2020-03-28 | XMS | Encounter Summary ---
Demographics + + + | Address | [address] | | | [place] [address] | + + + | Home Phone [...] Team Providers + +------+ + | Care Uranium Processing Supervisor Name | Role | Phone | [...] | | | | | Osteoarthros | [address] | Pavilion | | | | | is, | | [place], [place] | | | | | unspecified | | [address] | | | | | whether | | Phone: | | | | | generalized | | [phone] | | | | | or | | Fax: | | | | | localized, | | [phone] | | | | | pelvic | [...] | | [address] | [address] [place], | | | | | Mailcode: PV430 | [place] [address] | | | | | [facility] | | | | | | [place], [place] | | | | | | [address] | | | | | | [phone] | | | +--------+---------+ + + + [...] Walks with glut medius limp. Uses cane [employer]. Pain is in inner groin and posteriorly. [...] + + | Performing | Address | City/State/[facility] | Phone Number | | Organization | [...]
--- OUTSIDE RECORDS SUMMARY | ~2020-03-28 | XMS | Encounter Summary ---
Demographics + + + | Address | [address] | | | [place] [address] | + + + | Home Phone [...] Team Providers + +------+ + | Care Mirror Maker Name | Role | Phone | [...] as of this encounter Progress Notes Interface, Retail Business Analyst In - 05/17/2006 3:10 AM PDTCLINIC DATE: [...] arthroplasty at that point. Lloyd Garcia M.D. Doctor Of Nurse Anesthesia, Orthopedics and Rehabilitation / [id number] / [id number] / [id number] / [id number] cc: Ninfa Guillen M.D. [address] [place] [id number] signed by Interface, Retail Business Analyst In at 05/17/2006 3:1 0 AM PDTInterface, Retail Business Analyst In - 05/17/2006 3:10 AM PDTCLINIC DATE: [...] MD Lloyd Causey M.D. SAMANTHA / SALEEM [id number] / [id number] / [id number] / Tdocumented in this encounter Plan of Treatment Not on filedocumented as of this encounter Visit Diagnoses Not on filedocumented in this encounter"
--- OUTSIDE RECORDS SUMMARY | ~2020-03-28 | XMS | Encounter Summary ---
Demographics + + + | Address | [address] | | | [place] [address] | + + + | Home Phone [...] Providers + +------+ + | Care Gas Refrigerator Servicer Name | Role | Phone | + [...] | | [address] | R[address] Ayala [place], | | | | | Mailcode: PV430 | [place] [address] | | | | | [facility] | | | | | | [place] | | | | | | [address] | | | | | | [phone] | | | +--------+ + + + [...]
--- OUTSIDE RECORDS SUMMARY | ~2020-03-28 | XMS | Encounter Summary ---
Demographics + + + | Address | [address] | | | [place] [address] | + + + | Home Phone [...] Team Providers + +------+ + | Care Bobj Developer Name | Role | Phone | [...] | | | at Pankaj Lobato | [facility] | | | | | [address] | [place] [address] | | | | | [address] | | | | | | Luis Alfredo, [address] [place] [address] | | | | | | [place], [place] | | | | | | [address] | | | | | | [phone] | | | +--------+ + + + [...] view image for the detailed interpretation from [employer] results. | CARDIOLOGY | | | | + + + + + + + + | Performing | Address | City/State/Zipcode | Phone Number | | Organization | | | | + + + + + | [facility] | [address] | [place], [place] | | | CARDIOLOGY | [address] | [address] | | + + + + + | [facility] | [address] | [place], [place] | | | CARDIOLOGY | [address] | [address] | | + + + + + documented in this encounter Visit Diagnoses + + | Diagnosis | + + | Other specified pre-operative examination | + + documented in this encounter
--- OUTSIDE RECORDS SUMMARY | ~2020-03-28 | XMS | Encounter Summary ---
Demographics + + + | Address | [address] | | | [place] [address] | + + + | Home Phone [...] Team Providers + +------+ + | Care Bicycle I Assembler Name | Role | Phone | [...] | [facility] at [facility] | MEGAN Reddy [address] | | | | | [address] | [address] | | | | | Loop Physician's | [place], [place] | | | | | [address], 3rd floor | [address] | | | | | [place], [place] | [phone] | | | | | [address] | | | | | | [phone] | | | +--------+ + + + [...] CELL | 7.8 | K/cu mm | [facility] | | | COUNT | | | MEDICAL | | | | | | CENTER - | | | | | | [place] | | + +-------+ + + + | RED CELL | 4.86 | M/cu mm | [facility] | | | COUNT | | | MEDICAL | | | | | | CENTER - | | | | | | [place] | | + +-------+ + + + | HEMOGLOBIN | 14.1 | 12.1999 - 15 | [facility] | | | | | g/dL | MEDICAL | | | | | | CENTER - | | | | | | [place] | | + +-------+ + + + | HEMATOCRIT | 41.2 | % | [facility] | | | | | | MEDICAL | | | | | | CENTER - | | | | | | [place] | | + +-------+ + + + | MCV | 85 | fL | [facility] | | | | | | MEDICAL | | | | | | CENTER - | | | | | | [place] | | + +-------+ + + + | MCH | 29 | pg | [facility] | | | | | | MEDICAL | | | | | | CENTER - | | | | | | [place] | | + +-------+ + + + | MCHC | 34.2 | g/dL | [facility] | | | | | | MEDICAL | | | | | | CENTER - | | | | | | [place] | | + +-------+ + + + | PLATELET | 367 | K/cu mm | [facility] | | | COUNT | | | MEDICAL | | | | | | CENTER - | | | | | | [place] | | + +-------+ + + + | NEUTROPHIL | 59.2 | % | [facility] | | | % | | | MEDICAL | | | | | | CENTER - | | | | | | [place] | | + +-------+ + + + | LYMPHOCYTE | 32.5 | % | [facility] | | | % | | | MEDICAL | | | | | | CENTER - | | | | | | [place] | | + +-------+ + + + | MONOCYTE % | 6.1 | % | [facility] | | | | | | MEDICAL | | | | | | CENTER - | | | | | | [place] | | + +-------+ + + + | EOS % | 1.5 | % | [facility] | | | | | | MEDICAL | | | | | | CENTER - | | | | | | [place] | | + +-------+ + + + | BASO % | 0.7 | % | [facility] | | | | | | MEDICAL | | | | | | CENTER - | | | | | | [place] | | + +-------+ + + + | RDW | 14.5 | % | [facility] | | | | | | MEDICAL | | | | | | CENTER - | | | | | | [place] | | + +-------+ + + + | MPV | | fL | [facility] | | | | | | MEDICAL | | | | | | CENTER - | | | | | | [place] | | + +-------+ + + + | NEUTROPHIL | 4.6 | K/cu mm | [facility] | | | # | | | MEDICAL | | | | | | CENTER - | | | | | | [place] | | + +-------+ + + + | LYMPHOCYTE | 2.5 | K/cu mm | [facility] | | | # | | | MEDICAL | | | | | | CENTER - | | | | | | [place] | | + +-------+ + + + | MONOCYTE # | 0.5 | K/cu mm | [facility] | | | | | | MEDICAL | | | | | | CENTER - | | | | | | [place] | | + +-------+ + + + | EOS # | 0.1 | K/cu mm | [facility] | | | | | | MEDICAL | | | | | | CENTER - | | | | | | [place] | | + +-------+ + + + | BASO # | 0.1 | | [facility] | | | | | | MEDICAL | | | | | | CENTER - | | | | | | [place] | | + +-------+ + + + | PHOSPHORUS, | 3.9 | mg/dL | [facility] | | | PLASMA | | | [...] | + + + + + | [facility] | [address] | [place] [address] | | | C[facility] - [place] | | | | + + + + + COMPLETE METABOLIC SET (NA,K,CL,CO2,BUN,CREAT,GLUC,CA,AST,ALT,BILI TOTAL,ALK PHOS,ALB,PROT TOTAL) (03/01/2011 9:55 AM PDT) + +-------+ + + + | Component | Value | Ref Range | Performed | Pathologist | | | | | At | Signature | + +-------+ + + + | GLUCOSE, | 106 | 65 - 110 mg/dL | [facility] | | | PLASMA | | | MEDICAL | | | (LAB) | | | CENTER - | | | | | | [place] | | + +-------+ + + + | BUN, PLASMA | 10 | mg/dL | [facility] | | | (LAB) | | | MEDICAL | | | | | | CENTER - | | | | | | [place] | | + +-------+ + + + | CREATININE | 0.7 | mg/dL | [facility] | | | PLASMA | | | MEDICAL | | | (LAB) | | | CENTER - | | | | | | [place] | | + +-------+ + + + | TOTAL | 7.4 | g/dL | [facility] | | | PROTEIN, | | | MEDICAL | | | PLASMA | | | CENTER - | | | (LAB) | | | [place] | | + +-------+ + + + | ALBUMIN, | 3.8 | g/dL | [facility] | | | PLASMA | | | MEDICAL | | | (LAB) | | | CENTER - | | | | | | [place] | | + +-------+ + + + | CALCIUM, | 9.2 | mg/dL | [facility] | | | PLASMA | | | MEDICAL | | | (LAB) | | | CENTER - | | | | | | [place] | | + +-------+ + + + | BILIRUBIN | 0.3 | Transcutaneous | [facility] | | | TOTAL | | Bilirubinometer | MEDICAL | | | | | | CENTER - | | | | | | [place] | | + +-------+ + + + | ALK PHOS | 72 | U/L | [facility] | | | | | | MEDICAL | | | | | | CENTER - | | | | | | [place] | | + +-------+ + + + | AST(SGOT) | 10 | U/L | [facility] | | | | | | MEDICAL | | | | | | CENTER - | | | | | | [place] | | + +-------+ + + + | SODIUM, | 141 | mmol/L | [facility] | | | PLASMA | | | MEDICAL | | | (LAB) | | | CENTER - | | | | | | [place] | | + +-------+ + + + | POTASSIUM, | 4.4 | mmol/L | [facility] | | | PLASMA | | | MEDICAL | | | (LAB) | | | CENTER - | | | | | | [place] | | + +-------+ + + + | CHLORIDE, | 107 | mmol/L | [facility] | | | PLASMA | | | MEDICAL | | | (LAB) | | | CENTER - | | | | | | [place] | | + +-------+ + + + | TOTAL CO2, | 30 | mmol/L | [facility] | | | PLASMA | | | MEDICAL | | | (LAB) | | | CENTER - | | | | | | [place] | | + +-------+ + + + | ALT (SGPT) | 14 | U/L | [facility] | | | | | | MEDICAL | | | | | | CENTER - | | | | | | [place] | | + +-------+ + + + | SEDIMENTATI | 29 | mm/hr | [facility] | | | ON RATE | | [...] | + + + + + | [facility] | [address] | [place] [address] | | | C[facility] - [place] | | | | + + + + + documented in this encounter Visit Diagnoses Not on filedocumented in this encounter"
--- OUTSIDE RECORDS SUMMARY | ~2020-03-28 | XMS | Encounter Summary ---
Demographics + + + | Address | [address] | | | [place] [address] | + + + | Home Phone [...] Team Providers + +------+ + | Care Addresser Name | Role | Phone | + +------+ + | No Pcp Per Patient | PCP | Unavailable | + +------+ + Encounter Details +--------+ + + + + | Date | Type | Department | Care Team | Description | +--------+ + + + + | 12/15/ | Aircraft Rigging And Controls Mechanic | Orthopaedics at | Kalyan Arias MD | JUAN DAVID (Total Hip | | 2008 | | [facility] [address] | [address] | Arthroplasty) | | | | [address] | [address] | (Primary Dx) | | | | Mailcode: PV430 | [place], [place] | | | | | [facility] | [address] | | | | | [place], [place] | [phone] | | | | | [address] | | | | | | [phone] | | | +--------+ + + + [...]
--- OUTSIDE RECORDS SUMMARY | ~2020-03-28 | XMS | Encounter Summary ---
Demographics + + + | Address | [address] | | | [place] [address] | + + + | Home Phone [...] Team Providers + +------+ + | Care Helper Marble Finisher Name | Role | Phone | [...] Pavilion | | | | | | [place], [place] | | | | | | [address] | | | | | | [phone] | | | +--------+ + + + [...] ON | | | | | | [facility] [id number], | | | | | | DONE [...]
--- OUTSIDE RECORDS SUMMARY | ~2020-03-28 | XMS | Encounter Summary ---
Demographics + + + | Address | [address] | | | [place] [address] | + + + | Home Phone [...] Providers + +------+ + | Care Boat Canvas Maker And Installer Name | Role | Phone | [...] Pavilion | | | | | | [place], [place] | | | | | | [address] | | | | | | [phone] | | | +--------+ + + + [...] of | | | | | | Cthx-Swnxpizlygh-bacgizj | | | | | | jose. [...] | | + +---------+ + + | [facility] | | | | [...] | | + +---------+ + + | [facility] | | | | [...] | | + +---------+ + + | [facility] | | | | | [...] | | + +---------+ + + | [facility] DEPARTMENT OF | | | | | RADIOLOGY | | | | + +---------+ + + documented in this encounter Visit Diagnoses Not on filedocumented in this encounter
--- OUTSIDE RECORDS SUMMARY | ~2020-03-28 | XMS | Encounter Summary ---
Demographics + + + | Address | [address] | | | [place] [address] | + + + | Home Phone [...] Team Providers + +------+ + | Care Radio Rigger Name | Role | Phone | + [...] | | | | | Rox[place] Ayala [place], | | | | | | [place] [address] | | | +--------+ + + + [...] | | Patient: SHELBY GALDAMEZ Med Rec: [id number] Sex F Bdate: 1960 | | Date/Time Data | | Entered Into [facility] | | Anesth PostOp | | Surgery Date [id number] 10/11/03 10:54 | | [id number] 10/06/03 10:47 | | [id number] 10/04/03 10:47 | | [id number] 10/01/03 11:25 | | [id number] 09/28/03 10:01 | | [id number] 09/27/03 11:35 | | [id number] 09/14/03 11:13 | | [id number] 08/17/03 10:51 | | Anesthesiologist SEBASTIAN MARIO [...]
--- OUTSIDE RECORDS SUMMARY | ~2020-03-28 | XMS | Encounter Summary ---
Demographics + + + | Address | [address] | | | [place] [address] | + + + | Home Phone [...] Providers + +------+ + | Care Fire Safety Manager Name | Role | Phone [...] | | | | Mailcode: PV430 | [place], [place] | | | | | [facility] | [address] | | | | | [place], [place] | [phone] | | | | | [address] | | | | | | [phone] | | | +--------+ + + + [...]
--- OUTSIDE RECORDS SUMMARY | ~2020-03-28 | XMS | Encounter Summary ---
Demographics + + + | Address | [address] | | | [place] [address] | + + + | Home Phone [...] Team Providers + +------+ + | Care Python Architect Name | Role | Phone | [...] + | 03/08/ | Telephone | [facility] | Ladarius Martínez PA | Other | | 2016 | | SLEEP DISORDER [address] | [address] | | | | | [address] [place] | [place], [place] | | | | | [place] [address] | [address] | | | | | [phone] | | | +--------+ + + + [...] Miscellaneous Notes Telephone Encounter - Maegan Munoz, Life Teacher - 03/08/2016 1:09 PM PDTReceived hernan jacinto [...] and is in agreement with hernan boone. [facility] umented in this encounter Plan of Treatment +--------+---------+ + + + | Date | Type | Specialty | Care Team | Description | +--------+---------+ + + + | 05/23/ | Office | Pain Medicine | Xiang Sepulveda, | | | 2019 | Visit | | DO [address] | | | | | | [place] | | | | | | [address] | | | | | | | | +--------+---------+ + + + documented as of this encounter Visit Diagnoses Not on filedocumented in this encounter"
--- OUTSIDE RECORDS SUMMARY | ~2020-03-28 | XMS | Encounter Summary ---
Demographics + + + | Address | [address] | | | [place] [address] | + + + | Home Phone [...] Providers + +------+ + | Care Photo Engraver Name | Role | Phone | [...] as of this encounter Progress Notes Interface, Quill Winder In - 04/28/2005 7:30 PM PDTClinic Date: [...] followup is scheduled today. Lloyd Garcia M.D. Liner Installer, Orthopedics and Rehabilitation / [id number] / [id number] / [id number] / [id number] cc: Ninfa Guillen M.D. [address] [place] [address]Nqfyoapbjpwrly signed by Interface, Quill Winder In at 04/28/2005 7:3 0 PM PDTdocumented in this encounter Plan of Treatment Not on filedocumented as of this encounter Visit Diagnoses Not on filedocumented in this encounter"
--- OUTSIDE RECORDS SUMMARY | ~2020-03-28 | XMS | Encounter Summary ---
Demographics + + + | Address | [address] | | | [place] [address] | + + + | Home Phone [...] Team Providers + +------+ + | Care Classifying Machine Operator Name | Role | Phone [...] of this encounter Progress Notes Interface, Wire Coiler Machine Operator In - 06/11/2006 3:03 AM PDTCLINIC DATE: [...] clinic today. It was done in a [place] in [facility] on December 08, 2001. There is [...] on an as-needed basis. Vince Krishna M.D. [facility] / [id number] / [id number] / [id number] / cc: Ninfa Guillen M.D. [address] [place] [phone] Kalyan Wu M.D. [facility] Orthopedics and Rehabilitation Lloyd Garcia M.D. [facility] Orthopedics and RehabiliationElectronically signed by Interface, Wire Coiler Machine Operator In at 0 06/11/2006 3:03 AM PDTdocumented in this encounter Plan of Treatment Not on filedocumented as of this encounter Visit Diagnoses Not on filedocumented in this encounter"
--- OUTSIDE RECORDS SUMMARY | ~2020-03-28 | XMS | Encounter Summary ---
Demographics + + + | Address | [address] | | | [place] [address] | + + + | Home Phone [...] Team Providers + +------+ + | Care Fabric Awning Repairer Name | Role | Phone | + +------+ + | Travis Mcginnis MD | PCP | | + +------+ + Encounter Details +--------+ + + + + | Date | Type | Department | Care Team | Description | +--------+ + + + + | 11/09/ | Documentati | Vascular Access at | Lis Banuelos | | | 2010 | on | [facility] [address] | HERMINIO Swain [address] | | | | | [address] | [address] | | | | | [facility] | Rd [place], [place] | | | | | [place], [place] | [address] | | | | | [address] | | | | | | [phone] | | | +--------+ + + + [...]
--- OUTSIDE RECORDS SUMMARY | ~2020-03-28 | XMS | Encounter Summary ---
Demographics + + + | Address | [address] | | | [place] [address] | + + + | Home Phone [...] Team Providers + +------+ + | Care Platen Builder Up Name | Role | Phone | + +------+ + | Marta Jenkins CURB MACHINE OPERATOR | PCP | | + [...] | | | | Mailcode: PV430 | [place], [place] | | | | | [facility] | [address] | | | | | [place], [place] | [phone] | | | | | [address] | | | | | | [phone] | | | +--------+ + + + [...]
--- OUTSIDE RECORDS SUMMARY | ~2020-03-28 | XMS | Encounter Summary ---
Demographics + + + | Address | [address] | | | [place] [address] | + + + | Home Phone [...] Providers + +------+ + | Care Med Asst Name | Role | Phone | + [...] + + | 11/25/ | Hospital | [facility] | Rustam Schmid MD | | | 2017 | Encounter | MED CTR SURGICAL | [address] [facility] | | | | | [address] | [place] | | | | | [place] [address] | [address] | | | | | [phone] | [phone] | | | | | | | [...] upon return of cul ture results from [facility]. Stent may be removed by her primary care nurse practitioner on Saturday or SaturdayDecember 03. AttachmentsThe following attachments cannot be sent through Care Everywhere.DIET, DISCHARGE INSTRUCTIONS FOR EATING A LOW-SALT (TAMAZIGHT)KIDNEY STONES,PREVENTING (TAMAZIGHT)documented in this encounter Medications at Time of [...] ance from [facility] in [place]. C/o rt back/flank pain. Dry heaves noted. [...] Schmid MD - 11/25/2016 6:52 AM PST [facility] ADMIT HISTORY AND PHYSICAL Primary Care [...] is a 56 y.o. female, transferred from [place] emergency room with s ymptomatic right ureterolithiasis. [...] Signed by: Rustam Schmid MD, 11/25/2016 7:05 [facility] documented in this enc ounter Nursing Notes [...] Rustam Schmid MD - 2016 11:00 AM PSTPROFRANCISCAN [facility]ALTH OPERATIVE NOTE Pt. Name/Age/: Shelby Galdamez 56 y.o. 1960 Med. Record Number: [id number] Date of Operation/Procedure: 11/25/2016 Preoperative Diagnosis: right ureteral stones [N20.1] Post-Op Diagnosis Codes: * Right ureteral stone [N20.1] Postoperative Diagnosis: Same Surgeon: Rustam Schmid MD Manual Winder(s): None Anesthesia Provider(s): Anesthesiologist: Helio Barkley MD Sales Executive Insurance: Rain Edouard Anesthesia Type: General Procedure(s): RIGHT URETEROSCOPIC LASER LITHOTRIPSY PLACEMENT RIGHT URETERAL STENT PLACEMENT Operative Indications: Shelby Galdamez is a 56 y.o. year old female transferred from [facility] several hours ago, with CT demonstrating a [...] the usual sterile fashion . A 23 Bhutanese cystoscope was introduced to the bladder with [...] were removed. A 25 cm x 14 Bhutanese ureteral access sheath was threaded over the [...] back over the safety wire. A 6 Bhutanese by 26 cm diana ble-J stent was [...] Signed by: Rustam Schmid MD, 11/25/2016 11:01 [facility] documented in this enc ounter Plan of Treatment +--------+---------+ + + + | Date | Type | Specialty | Care Team | Description | +--------+---------+ + + + | 05/23/ | Office | Pain Medicine | Xiang Sepulveda, | | | 2019 | Visit | | DO [address] | | | | | | [place] | | | | | | [address] | | | | | | | [...] MD | | | | | | ([id number]) on 11/25/2016 | | | | | [...]
--- OUTSIDE RECORDS SUMMARY | ~2020-03-28 | XMS | Encounter Summary ---
Demographics + + + | Address | [address] | | | [place] [address] | + + + | Home Phone [...] Team Providers + +------+ + | Care Filler Mixer Name | Role | Phone | [...] as of this encounter Progress Notes Interface, Customer Service Security Officer In - 06/23/2006 1:07 AM PDTCLINIC DATE: [...] Ken Mejia M.D. Lloyd Garcia M.D. / [id number] / [id number] / [id number] / Tdocumented in this encounter Plan of Treatment Not on filedocumented as of this encounter Visit Diagnoses Not on filedocumented in this encounter"
--- OUTSIDE RECORDS SUMMARY | ~2020-03-28 | XMS | Encounter Summary ---
Demographics + + + | Address | [address] | | | [place] [address] | + + + | Home Phone [...] + +------+ + | Marta Jenkins HOT DIP GALVANIZER | PCP | | + +------+ + [...] [id number] | | | | | | [place], [place] | | | | | | [address] | | | | | | [phone] | | | +--------+ + + + [...]
--- OUTSIDE RECORDS SUMMARY | ~2020-03-28 | XMS | Encounter Summary ---
Demographics + + + | Address | [address] | | | [place] [address] | + + + | Home Phone [...] Team Providers + +------+ + | Care Talent Buyer Name | Role | Phone | [...] | | | | | [address] [place] | | | | | | [place] [address] | | | | | | [phone] | | +--------+ + + + + [...] by | | | | | | [facility] | | | | | | [facility]. | | | | + + + + + + + + | Specimen | + + | | + + + + + + + | Performing | Address | City/State/Zipcode | Phone Number | | Organization | | | | + + + + + | [facility] | [address] | [place] [address] | | | LABORATORY | | | | + + + + + documented in this encounter Visit Diagnoses Not on filedocumented in this encounter"
--- OUTSIDE RECORDS SUMMARY | ~2020-03-28 | XMS | Encounter Summary ---
Demographics + + + | Address | [address] | | | [place] [address] | + + + | Home Phone [...] Team Providers + +------+ + | Care Wine Maker Name | Role | Phone | [...] | Procedures | Roxann Ayala | Rd [place], | | | | | CONSULT TO | [place], [place] | [place] | | | | | ORTHOPEDICS | [address] | [address] | | | | | AND | Phone: | Phone: | | | | | REHABILITATI | [phone] | [phone] | | | | | ON | Fax: | Fax: | | | | | | [phone] | [phone] | +--------+--------+ + + + + Encounter Details +--------+---------+ + + + | Date | Type | Department | Care Team | Description | +--------+---------+ + + + | 04/10/ | Office | Orthopaedic Spine | Krishna, Vince, MD | Back pain (Primary | | 2010 | Visit | Center at [facility] [address] | [address] | Dx) | | | | [address] | Roxann Ayala [place], | | | | | Mailcode: CH8N | [place] [address] | | | | | [facility] | [phone] | | | | | and Healing, | | | | | | Building | | | | | | Floor [place], [place] | | | | | | [address] | | | | | | [phone] | | | +--------+---------+ + + + [...]
--- OUTSIDE RECORDS SUMMARY | ~2020-03-28 | XMS | Encounter Summary ---
Demographics + + + | Address | [address] | | | [place] [address] | + + + | Home Phone [...] Providers + +------+ + | Care Data Developer Name | Role | Phone | [...] | | [address] | Roxann Ayala [place], | | | | | Mailcode: [id number] | [place] [address] | | | | | [facility] | | | | | | [place] | | | | | | [address] | | | | | | [phone] | | | +--------+ + + + [...]
--- OUTSIDE RECORDS SUMMARY | ~2020-03-28 | XMS | Encounter Summary ---
Demographics + + + | Address | [address] | | | [place] [address] | + + + | Home Phone [...] Providers + +------+ + | Care Fisher Quahog Name | Role | Phone | + +------+ + PCP | Unavailable | + +------+ + Encounter Details +--------+ + + + + | Date | Type | Department | Care Team | Description | +--------+ + + + + | 06/24/ | Results | | Other, Faculty | | | 2000 | Only | | [phone] | | +--------+ + + + + [...] + | [facility] DEPARTMENT | | | | | RADIOLOGY | | | | + +---------+ + + documented in this encounter Visit Diagnoses Not on filedocumented in this encounter"
--- OUTSIDE RECORDS SUMMARY | ~2020-03-28 | XMS | Encounter Summary ---
Demographics + + + | Address | [address] | | | [place] [address] | + + + | Home Phone [...] Providers + +------+ + | Care Press Loader Name | Role | Phone | [...]
--- OUTSIDE RECORDS SUMMARY | ~2020-03-28 | XMS | Encounter Summary ---
Demographics + + + | Address | [address] | | | [place] [address] | + + + | Home Phone [...] Providers + +------+ + | Care Svp Monetization Name | Role | Phone | + +------+ + PCP | Unavailable | + +------+ + Encounter Details +--------+ + + + + | Date | Type | Department | Care Team | Description | +--------+ + + + + | 12/23/ | Polymerization Engineer | Orthopaedics at | Gino Baker MD | Osteoarthritis of | | 2006 | | [facility] [address] | [address] | Hip (Primary Dx) | | | | [address] | Roxann Ayala [place] | | | | | Mailcode: [id number] | [place] [address] | | | | | [facility] | | | | | | [place], [place] | | | | | | [address] | | | | | | [phone] | | | +--------+ + + + [...]
--- OUTSIDE RECORDS SUMMARY | ~2020-03-28 | XMS | Encounter Summary ---
Demographics + + + | Address | [address] | | | [place] [address] | + + + | Home Phone [...] Team Providers + +------+ + | Care Chart Changer Name | Role | Phone | [...] [place] | | | | | | [place], [place] | | | | | | [address] | | | | | | [phone] | | | +--------+---------+ + + + [...] fairly well controlled at this point with [place]. She has been wbat and is overall [...]
--- OUTSIDE RECORDS SUMMARY | ~2020-03-28 | XMS | Encounter Summary ---
Demographics + + + | Address | [address] | | | [place] [address] | + + + | Home Phone [...] Team Providers + +------+ + | Care Hired Hand Name | Role | Phone | [...] of this encounter Progress Notes Interface, Fur Plucker In - 04/28/2005 6:17 PM PDTClinic Date: [...] see us. She instead went to the [facility] emergency department, where she was [...] a chance to get back home to [place]. We will call her tomorrow and reiterate how important it is that we take care of this fluid collection in her hip and try to get her better. Dori Wong. Lloyd Garcia M.D. Attending Physician /jamil P [id number] signed by Interface, Fur Plucker In at 04/28/2005 6:17 PM PDTdoc umented in this encounter Plan of Treatment Not on filedocumented as of this encounter Visit Diagnoses Not on filedocumented in this encounter"
--- OUTSIDE RECORDS SUMMARY | ~2020-03-28 | XMS | Encounter Summary ---
Demographics + + + | Address | [address] | | | [place] [address] | + + + | Home Phone [...] Team Providers + +------+ + | Care Kitchen And Counter Worker Name | Role | Phone | [...] [facility] | | | | | | [address] | | | | | | Loop Physician's | | | | | | [place], [facility] Floor | | | | | | [place], [place] | | | | | | [address] | | | | | | [phone] | | | +--------+ + + + [...] + + + +---------+ + + | [place]-3 Fatty | Take by mouth. | | [...]
--- OUTSIDE RECORDS SUMMARY | ~2020-03-28 | XMS | Encounter Summary ---
Demographics + + + | Address | [address] | | | [place] [address] | + + + | Home Phone [...] Team Providers + +------+ + | Care Monitoring Tech Name | Role | Phone | [...] Pavilion | | | | | | [place], [place] | | | | | | [address] | | | | | | [phone] | | | +--------+ + + + [...] | | | | | | obtained. Food Safety Director AP and | | | | | [...] FINDINGS: | | | | | | Food Safety Director images of the | | | | [...] + +---------+ + + | [facility] DEPARTMENT OF | | | [...] | | | | | | obtained. Food Safety Director AP and | | | | | [...] FINDINGS: | | | | | | Food Safety Director images of the | | | | [...] + +---------+ + + | [facility] DEPARTMENT OF | | | | | RADIOLOGY | | | | + +---------+ + + documented in this encounter Visit Diagnoses Not on filedocumented in this encounter"
--- OUTSIDE RECORDS SUMMARY | ~2020-03-28 | XMS | Encounter Summary ---
Demographics + + + | Address | [address] | | | [place] [address] | + + + | Home Phone [...] Team Providers + +------+ + | Care Can Labeler Name | Role | Phone | + +------+ + | Travis Mcginnis MD | PCP | | + +------+ + Encounter Details +--------+ + + + + | Date | Type | Department | Care Team | Description | +--------+ + + + + | 10/02/ | Hospital | Radiology/Imaging | Royce Durand, | | | 2019 | Encounter | Lab at [facility] [address] | [address] [facility] | | | | | [address] Mailcode: | [address] | | | | | CHANG | [place], [place] | | | | | Health and Healing, | [address] | | | | | | [phone] | | | | | Floor [place], [place] | | | | | | [address] | | | | | | [phone] | | | +--------+ + + + [...] + + + +---------+ + + | [place]-3 Fatty | Take by mouth. | | [...]
--- OUTSIDE RECORDS SUMMARY | ~2020-03-28 | XMS | Encounter Summary ---
Demographics + + + | Address | [address] | | | [place] [address] | + + + | Home Phone [...] Team Providers + +------+ + | Care Package Sorter Name | Role | Phone | [...] + | 09/26/ | Telephone | [facility] | Ladarius Martínez PA | Other | | 2016 | | SLEEP DISORDER [address] | [address] | | | | | [address] [place] | [place], [place] | | | | | [place] [address] | [address] | | | | | [phone] | | | +--------+ + + + [...] Miscellaneous Notes Telephone Encounter - Maegan Munoz Lay Brother - 09/27/2016 11:33 AM PSTPatient ca lled back appointment has been scheduled. elephone Encounter - Maegan Munoz Lay Brother - 09/26/2016 1:12 PM PSTCalled left message [...] [place] | | | | | | [address]207 | | | | | | | | +--------+---------+ + + + documented as of this encounter Visit Diagnoses Not on filedocumented in this encounter"
--- OUTSIDE RECORDS SUMMARY | ~2020-03-28 | XMS | Encounter Summary ---
Demographics + + + | Address | [address] | | | [place] [address] | + + + | Home Phone [...] Providers + +------+ + | Care Credit Support Counselor Name | Role | Phone | [...] | | | | due to | [place], [place] | [place], [place] | | | | | unspecified | [address] | [address] | | | | | device, | Phone: | Phone: | | | | | implant, and | [phone] | [phone] | | | | | graft | Fax: | Fax: | | | | | | [phone] | [phone] | +--------+--------+ + + + + Encounter [...] | | | | [address] | [place] [address] | internal joint | | | | Physician's | [phone] | prosthesis (HCC) | | | | Pavilion, 4th floor | | (Primary Dx) | | | | [place], [place] | | | | | | [address] | | | | | | [phone] | | | +--------+---------+ + + + [...] CLINIC FOLLOW UP Referrring Physician: TYRONE COLBY [facility] Orthopedics [address] [place] [address] Primary Care Physician: [address] [address] Ms. Galdamez presents to Infectious Diseases Clinic [...] procedure. Indications : Staphylococcus Aureus Joint Infection [place]-3 Fatty Acids-Vitamin E (FISH OIL) 1,000 mg [...] above discussion. ALBINO TERESA MD INFECTIOUS DISEASES [address] [place] [address] Mailcode: L608 [address] [address] documented in this e ncounter [...]
--- OUTSIDE RECORDS SUMMARY | ~2020-03-28 | XMS | Encounter Summary ---
Demographics + + + | Address | [address] | | | [place] [address] | + + + | Home Phone [...] Team Providers + +------+ + | Care Whipper Beater Name | Role | Phone | + +------+ + | Marta Jenkins LABORER SHELLFISH PROCESSING | PCP | | + +------+ + [...] [id number] | | | | | | [place], [place] | | | | | | [address] | | | | | | [phone] | | | +--------+ + + + [...]
--- OUTSIDE RECORDS SUMMARY | ~2020-03-28 | XMS | Encounter Summary ---
Demographics + + + | Address | [address] | | | [place] [address] | + + + | Home Phone [...] Team Providers + +------+ + | Care Integration Aide Name | Role | Phone | + +------+ + | Marta Jenkins SHIPPING ASSISTANT | PCP | | + +------+ + Encounter Details +--------+ + + + + | Date | Type | Department | Care Team | Description | +--------+ + + + + | 11/19/ | Documentati | Digestive Health | Clinic, Surgery | | | 2019 | on | [place] [facility] [address] | | | | | | [address] | | | | | | Mailcode: [place] | | | | | | for Health and | | | | | | Healing, Building 2 | | | | | | [facility] [place] | | | | | | [address] | | | | | | [phone] | | | +--------+ + + + [...]
--- OUTSIDE RECORDS SUMMARY | ~2020-03-28 | XMS | Encounter Summary ---
Demographics + + + | Address | [address] | | | [place] [address] | + + + | Home Phone [...] Providers + +------+ + | Care Erp Analyst Name | Role | Phone | [...] | | | | | | | [place], | | | | | | | [place] [address] | +--------+--------+ + + + + Encounter Details +--------+---------+ + + + | Date | Type | Department | Care Team | Description | +--------+---------+ + + + | 09/08/ | Office | Radiation Oncology | Kevin Arenas MD | Heterotopic Tissue | | 2007 | Visit | at [facility] [address] | [address] | (Primary Dx) | | | | [address] | [place], [place] | | | | | [place], 4th floor | [address] | | | | | [place], [place] | [phone] | | | | | [address] | | | | | | [phone] | | | +--------+---------+ + + + [...] will treatment her today. KEVIN ARENAS MD [facility] RADIATION MEDICINE [facility] [place] [address] r Miller - 09/08/2008 2:21 PM PST [...] DAVID, bone graft and HO excision for soft sugar supervisor masood osteoarthritis, HO formation, and non-union of [...]
--- OUTSIDE RECORDS SUMMARY | ~2020-03-28 | XMS | Encounter Summary ---
Demographics + + + | Address | [address] | | | [place] [address] | + + + | Home Phone [...] Team Providers + +------+ + | Care Wheelchair Van Driver Name | Role | Phone | + +------+ + | Marta Jenkins PRODUCT SAFETY ADMINISTRATOR | PCP | | + +------+ [...] | | | | | (HCC) | [facility] | Mailcode: | | | | | Procedures | Rd | [facility] | | | | | PHYSICAL | [place], [place] | for Health | | | | | THERAPY | [address] | and Healing, | | | | | REFERRAL | Phone: | Building 1, | | | | | | [phone] | [address] Floor | | | | | | Fax: | [place], [place] | | | | | | [phone] | [address] | | | | | | | Phone: | | | | | | | [phone] | | | | | | | Fax: | | | | | | | [phone] | +--------+--------+ + + + + Encounter Details +--------+ + + + + | Date | Type | Department | Care Team | Description | +--------+ + + + + | 11/19/ | Acid Purification Equipment Operator | Digestive Health | Wanda López ACNP | Morbid obesity (HCC) | | 2019 | | Center at [facility] [address] | [address] | (Primary Dx) | | | | [address] | Roxann Ayala [place], | | | | | Mailcode: [place] | [place] [address] | | | | | for Health and | [phone] | | | | | [facility] 2 | | | | | | [place], [place] | | | | | | [address] | | | | | | [phone] | | | +--------+ + + + [...]
--- OUTSIDE RECORDS SUMMARY | ~2020-03-28 | XMS | Encounter Summary ---
Demographics + + + | Address | [address] | | | [place] [address] | + + + | Home Phone [...] Team Providers + +------+ + | Care Hatch Tender Name | Role | Phone | [...] | Transcriptions | + + | Interface, Grain Cleaner In - 09/19/2005 9:05 PM PST Date: | | 10/01/2003Attending Surgeon: Lloyd Garcia M.D.Scooper(s): | | Benson Boone M.D.Preoperative Diagnoses:Right hip [...] cheilectomy on July | | 2002 via [facility]. It was complicated by greater trochanter hardware [...] Boone, | | Haleigh Garcia M.D.RT / [id number] / [id number] / [id number] / [id number]: 10/01/2003T: 10/02/2003 | |2002, was demonstrating that [...] | | | |RT / HS | |[id number] / [id number] / [id number] / [id number] | | | | | + + documented in this encounter Visit Diagnoses Not on filedocumented in this encounter"
--- OUTSIDE RECORDS SUMMARY | ~2020-03-28 | XMS | Encounter Summary ---
Demographics + + + | Address | [address] | | | [place] [address] | + + + | Home Phone [...] Providers + +------+ + | Care Research Coordinator Name | Role | Phone | [...] [place] | | | | | [place] [address] | [place] [address] | | | | | [phone] | [phone] | | | | | | | [...] [place] | | | | | | [address] | | | | | | | | +--------+---------+ + + + documented as of this encounter Visit Diagnoses Not on filedocumented in this encounter"
--- OUTSIDE RECORDS SUMMARY | ~2020-03-28 | XMS | Encounter Summary ---
Demographics + + + | Address | [address] | | | [place] [address] | + + + | Home Phone [...] Providers + +------+ + | Care Sales Director Name | Role | Phone | [...] | unspecified | [address] | Rd [place], | | | | | whether | [place], [place] | [place] | | | | | generalized | [address] | [address] | | | | | or | Phone: | Phone: | | | | | localized, | [phone] | [phone] | | | | | pelvic | Fax: | Fax: | | | | | region and | [phone] | [phone] | | | | | thigh | [...] Pavilion | | | | | | [place], [place] | | | | | | [address] | | | | | | [phone] | | | +--------+---------+ + + + [...] surgeries scheduled to take place on the [place] at the [facility]: Surgeries scheduled in the [facility] ([address] [place] [address]): registration is located on the 4th floor of [facility] (Day Surgery). Surgeries scheduled in the [facility]: registration is located on the 9th floor. Surgeries scheduled in [facility]: registration is located on the 6th floor. Surgeries scheduled in the [facility]: registration is located i n the [place] [...] If you use specialized medical equipment at [facility], please check with your provider before [...] surgeries scheduled to take place on the [place] at the [facility]: Surgeries scheduled in the [facility] ([address] [place] [address]): registration is located on the 4th floor of [facility] (Day Surgery). Surgeries scheduled in the [facility]: registration is located on the 9th floor. Surgeries scheduled in [facility]: registration is located on the 6th floor. Surgeries scheduled in the [facility]: registration is located i n the [facility] on the first floor. For surgeries scheduled to take place at the [facility]: registration is l [...] you use specialized medical equipment at h [facility], please check with your provider before [...] infection has s calvin been cleared with long chain quiller tender antibiotics. In this time she has also [...] OF ACTION: see above PARQ: see above. [facility] umeunice in this encounter Plan [...] Performed At | + + + | [id number] Estimated GFR > 60 mL/min/1.73 sq m if non- | [facility] | | Citizen [place] [id number] Estimated GFR > 60 mL/min/1.73 sq m if | DEPARTMENT OF | | Citizen [place] GFR is estimated using the MDRD equation [...] [facility] | [address] | [place] [address] | | | PATHOLOGY | [address] | | | + + + + + | [facility] | [address] | [place] [address] | | | PATHOLOGY | [address] [...] | [facility] | [facility] | [place] [address] | | | PATHOLOGY | [address] | | | + + + + + | [facility] | [address] [facility] | [place] [address] | | | PATHOLOGY | [address] [...] [facility] DEPARTMENT OF | [facility] | [place] [address] | | | PATHOLOGY | [address] | | | + + + + + | [facility] DEPARTMENT OF | [facility] | [place] [address] | | | PATHOLOGY | [address] [...] + + + + | PRODUCT | [id number] | | [facility] | | | UNIT [...] [facility] | [address] [facility] | [place] [address] | | | PATHOLOGY | [address] | | | + + + + + | [facility] | [address] [place] [address] | [place] [address] | | | PATHOLOGY | [address] | | | + + + + + documented in this encounter Visit Diagnoses + + | Diagnosis | + + | Other specified pre-operative examination - Primary | + + documented in this encounter
--- OUTSIDE RECORDS SUMMARY | ~2020-03-28 | XMS | Encounter Summary ---
Demographics + + + | Address | [address] | | | [place] [address] | + + + | Home Phone [...] Providers + +------+ + | Care Motor Installer Name | Role | Phone | [...] [address] | | | | | | [place], [place] | | | | | | [address] | | | | | | [phone] | | | +--------+ + + + [...]
--- OUTSIDE RECORDS SUMMARY | ~2020-03-28 | XMS | Encounter Summary ---
Demographics + + + | Address | [address] | | | [place] [address] | + + + | Home Phone [...] Providers + +------+ + | Care Regulatory Affairs Manager Name | Role | Phone | [...] + + | 02/22/ | Office | [facility] | Ladarius Martínez PA | MAMADOU on CPAP (Primary | | 2016 | Visit | SLEEP DISORDER [address] | [address] | Dx) | | | | [address] [place] | [place] | | | | | [place] [address] | [address] | | | | | [phone] | | | +--------+---------+ + + + [...] mask obtained from: [facility] [place] Pressure: 9-16 cm Median: 12.2 cm 95%: [...] all". She understands that she has severe social services assistant ea, but she often doesn't care about [...] Exam Assessment: Problem #1: OBSTRUCTIVE SLEEP APNEA (TNQ47-P79.33) This is controlled with CPAP, but she has struggled with wearing her CPAP consistently. Jac jackson has a for a variety of reasons/excuses for not using CPAP. During a recent stay in the [facility] she was told that her oxygen levels were too low while sleeping and using CPAP. Plan: 1. She is to continue with CPAP indefinitely. 2. She is to work harder at wearing her CPAP 100% of the time she is asleep. 3. She is to avoid making excuses for not using CPAP. 4. We have faxed a prescription to [facility] [place] for a nocturnal pulse oxym etry study [...] [place] | | | | | | [address] | | | | | | | | +--------+---------+ + + + documented as of this encounter Visit Diagnoses + + | Diagnosis | + + | MAMADOU on CPAP - Primary Obstructive sleep apnea (adult) (pediatric) | + + documented in this encounter
--- OUTSIDE RECORDS SUMMARY | ~2020-03-28 | XMS | Encounter Summary ---
Demographics + + + | Address | [address] | | | [place] [address] | + + + | Home Phone [...] Providers + +------+ + | Care Hog Handler Name | Role | Phone | + +------+ + | Marta Jenkins ASSISTANT REAL ESTATE MANAGER | PCP | | + +------+ [...] [address] | | | | | [place], [place] | [place], [place] | | | | | [address] | [address] | | | | | [phone] | [phone] | | | | | | | [...]
--- OUTSIDE RECORDS SUMMARY | ~2020-03-28 | XMS | Encounter Summary ---
Demographics + + + | Address | [address] | | | [place] [address] | + + + | Home Phone [...] Team Providers + +------+ + | Care Photoengraving Sketch Maker Name | Role | Phone | [...] | Procedures | Roxann Ayala | Jamie [place], | | | | | CONSULT TO | [place], [place] | [place] | | | | | ORTHOPEDICS | | | | | | | AND | Phone: | Phone: | | | | | REHABILITATI | [phone] | [phone] | | | | | ON | Fax: | Fax: | | | | | | [phone] | [phone] | +--------+--------+ + + + + Diagnostic [...] | | y | [address] [place] | | | | | Procedures | Roxann Ayala | Research | | | | | MRI SPINE | [place], [place] | Center | | | | | LUMBAR WO | | [place], [place] | | | | | CONT | Phone: | [address] | | | | | | [phone] | Phone: | | | | | | Fax: | [phone] | | | | | | [phone] | Fax: | | | | | | | [phone] | +--------+--------+ + + + + Reason [...] | | | Orthopedics | | | [address] [facility] | | | | | | | [address] | | | | | | | aJmie [place], | | | | | | | [place] | | | | | | | [address] | | | | | | | Phone: | | | | | | | [phone] | | | | | | | Fax: | | | | | | | [phone] | +--------+--------+ + + + + Encounter [...] | | | Mailcode: [id number] | [place], [place] | | | | | Physician[facility] Pavilion | [address] | | | | | [place], [place] | [phone] | | | | | [address] | | | | | | [phone] | | | +--------+---------+ + + + [...] documented findings and plan of care. TYRONE CLOBY MD [facility] OR[facility]OP[facility]ICS [facility]HABILITATION [address] [place] [address] Mailcode: [id number] Physicians [facility] [address] Taz Grider M D - 07/06/2010 9:32 [...] of | | | | | | [id number]/superior | | | | | | corner, [...]
--- OUTSIDE RECORDS SUMMARY | ~2020-03-28 | XMS | Encounter Summary ---
Demographics + + + | Address | [address] | | | [place] [address] | + + + | Home Phone [...] Team Providers + +------+ + | Care Endbander Name | Role | Phone | + +------+ + PCP | Unavailable | + +------+ + Encounter Details +--------+ + + + + | Date | Type | Department | Care Team | Description | +--------+ + + + + | 11/22/ | Results | Orthopaedics at | Peng Muro | | | 2003 | Only | [facility] [address] MD,PhD [address] | | | | | [address] | [address] | | | | | Mailcode: PV430 | [place], [place] | | | | | [facility] | [address] | | | | | [place], [place] | [phone] | | | | | [address] | | | | | | [phone] | | | +--------+ + + + [...] | + +---------+ + + | [facility] DEPARTMENT OF | | | | [...] | + +---------+ + + | [facility] DEPARTMENT OF | | | | | RADIOLOGY | | | | + +---------+ + + documented in this encounter Visit Diagnoses Not on filedocumented in this encounter"
--- OUTSIDE RECORDS SUMMARY | ~2020-03-28 | XMS | Encounter Summary ---
Demographics + + + | Address | [address] | | | [place] [address] | + + + | Home Phone [...] Team Providers + +------+ + | Care Catalog Librarian Name | Role | Phone | [...] | | | | Mailcode: PV430 | [place], [place] | | | | | [facility] | [address] | | | | | [place], [place] | [phone] | | | | | [address] | | | | | | [phone] | | | +--------+ + + + [...]
--- OUTSIDE RECORDS SUMMARY | ~2020-03-28 | XMS | Encounter Summary ---
Demographics + + + | Address | [address] | | | [place] [address] | + + + | Home Phone [...] Team Providers + +------+ + | Care Neon Tube Bender Name | Role | Phone | + [...] | [facility] DEPARTMENT | [address] | [place] [address] | | | PATHOLOGY | [address] | | | + + + + + | [facility] DEPARTMENT OF | [address] | [place] [address] | | | PATHOLOGY | [address] [...] DEPARTMENT OF | [address] | [place] [address] | | | PATHOLOGY | [address] | | | + + + + + | [place] DEPARTMENT OF | [address] | [place] [address] | | | PATHOLOGY | [address] [...] + + | [facility] | [address] | [place] [address] | | | PATHOLOGY | [address] | | | + + + + + | [facility] DEPARTMENT OF | [address] | [place] [address] | | | PATHOLOGY | [address] [...] + + | [facility] | [address] | [place] [address] | | | PATHOLOGY | [address] | | | + + + + + | [facility] | [address] | [place] [address] | | | PATHOLOGY | [address] | | | + + + + + documented in this encounter Visit Diagnoses Not on filedocumented in this encounter"
--- OUTSIDE RECORDS SUMMARY | ~2020-03-28 | XMS | Encounter Summary ---
Demographics + + + | Address | [address] | | | [place] [address] | + + + | Home Phone [...] Providers + +------+ + | Care Door To Door Salesman Name | Role | Phone | [...] as of this encounter Progress Notes Interface, Clinical Education Assistant In - 04/28/2005 10:57 PM PDTClinic [...] resolved, and she attributes to eating a Chinese pork and vegetable lap dish called BevyUp. Physical Examination General: Shelby is in good [...] drain is in place. Lloyd Garcia M.D. [facility] / SALEEM [id number] / [id number] / [id number] / cc: Everett Guillen M.D. [address] [place] [address] [id number] signed by Interface, Clinical Education Assistant In at 04/28/2005 10:57 PM PDTdocumented in this encounter Plan of Treatment Not on filedocumented as of this encounter Visit Diagnoses Not on filedocumented in this encounter"
--- OUTSIDE RECORDS SUMMARY | ~2020-03-28 | XMS | Encounter Summary ---
Demographics + + + | Address | [address] | | | [place] [address] | + + + | Home Phone [...] Providers + +------+ + | Care Support Team Assoc Name | Role | Phone | + [...] | | [address] | [address] [place], | | | | | Mailcode: PV430 | [place] [address] | | | | | [facility] | | | | | | [place], [place] | | | | | | [address] | | | | | | [phone] | | | +--------+ + + + [...]
--- OUTSIDE RECORDS SUMMARY | ~2020-03-28 | XMS | Encounter Summary ---
Demographics + + + | Address | [address] | | | [place] [address] | + + + | Home Phone [...] Team Providers + +------+ + | Care Coremaker Pipe Name | Role | Phone | + [...] as of this encounter Progress Notes Interface, Prenatal Genetic Counselor In - 04/28/2005 7:30 PM PDTClinic Date: [...] signs of recurrent infection. Lloyd Garcia M.D. Brake Press Operator [facility] / [id number] / [id number] / [id number] / [id number] cc: Ninfa Guillen M.D. [address] [place], [place] [id number] signed by Interface, Prenatal Genetic Counselor In at 04/28/2005 7:3 0 PM PDTdocumented in this encounter Plan of Treatment Not on filedocumented as of this encounter Visit Diagnoses Not on filedocumented in this encounter"
--- OUTSIDE RECORDS SUMMARY | ~2020-03-28 | XMS | Encounter Summary ---
Demographics + + + | Address | [address] | | | [place] [address] | + + + | Home Phone [...] Providers + +------+ + | Care Rn On Site Name | Role | Phone | + +------+ + | Marta Jenkins UNDER WATER ASSISTANT | PCP | | + +------+ [...] | | | | | (HCC) | [facility] | Mailcode: | | | | | Procedures | Rd | [facility] | | | | | PHYSICAL | [place], [place] | for Health | | | | | THERAPY | [address] | and Healing, | | | | | REFERRAL | Phone: | Building [address], | | | | | | [phone] | [address] | | | | | | Fax: | [place], [place] | | | | | | [phone] | [address] | | | | | | | Phone: | | | | | | | [phone] | | | | | | | Fax: | | | | | | | [phone] | +--------+--------+ + + + + Encounter Details +--------+ + + + + | Date | Type | Department | Care Team | Description | +--------+ + + + + | 11/19/ | Police Judge | Digestive Health | Wanda López ACNP | Morbid obesity (HCC) | | 2019 | | Center at [facility] [address] | [address] | (Primary Dx) | | | | [address] | [address] [place], | | | | | Mailcode: Monitor | [place] [address] | | | | | for Health and | [phone] | | | | | [facility] [address] | | | | | | [place], [place] | | | | | | [address] | | | | | | [phone] | | | +--------+ + + + [...]
--- OUTSIDE RECORDS SUMMARY | ~2020-03-28 | XMS | Encounter Summary ---
Demographics + + + | Address | [address] | | | [place] [address] | + + + | Home Phone [...] Team Providers + +------+ + | Care Silk Screen Operator Name | Role | Phone | + +------+ + | Marta Jenkins RN CCU | PCP | | + +------+ + Encounter Details +--------+ + + + + | Date | Type | Department | Care Team | Description | +--------+ + + + + | 11/18/ | Abstract | Digestive Health | Clinic, Surgery | | | 2019 | | [facility] [address] | | | | | | [address] | | | | | | Mailcode: [place] | | | | | | for Health and | | | | | | Healing, Building [address] | | | | | | [facility] [place] | | | | | | [address] | | | | | | [phone] | | | +--------+ + + + [...]
--- OUTSIDE RECORDS SUMMARY | ~2020-03-28 | XMS | Encounter Summary ---
Demographics + + + | Address | [address] | | | [place] [address] | + + + | Home Phone [...] Providers + +------+ + | Care Maintenance Data Analyst Name | Role | Phone | + +------+ + | Yuki Pantoja MD | PCP | | + +------+ + Encounter Details +--------+ + + + + | Date | Type | Department | Care Team | Description | +--------+ + + + + | 06/21/ | Anime Designer | Orthopaedics at | Kalyan Colby MD | Osteoarthritis of | | 2008 | | [facility] [address] | [address] | Hip (Primary Dx) | | | | [address] | [address] | | | | | Mailcode: PV430 | [place], [place] | | | | | [facility] | [address] | | | | | [place], [place] | [phone] | | | | | [address] | | | | | | [phone] | | | +--------+ + + + [...] X-RAY HIP 2 | Med Rec No: [id number] | | | | | VIEWS | Name: | | | | | RIGHT W/ | SHELBY GALDAMEZ | | | | | PELVIS 1 | Birthday: 1960 | | | | | VIEW | Sex: F | | | | | | Alias:Patient Location: | | | | | | [id number]: Outpatient | | | | | | [...] # | | | | | | [id number]:PELVIS | | | | | | ONE [...]
--- OUTSIDE RECORDS SUMMARY | ~2020-03-28 | XMS | Encounter Summary ---
Demographics + + + | Address | [address] | | | [place] [address] | + + + | Home Phone [...] Team Providers + +------+ + | Care Group Captain Name | Role | Phone | [...] as of this encounter Progress Notes Interface, Building Contractor In - 09/08/2006 1:11 AM PSTCLINIC DATE: [...] evaluation. Lloyd Garcia MD / [id number] / [id number] / [id number] / cc: Matthew Garcia MD [address] [place], [place] [id number] signed by Interface, Building Contractor In at 09/08/2006 1:11 AM PSTdocumented in this encounter Plan of Treatment Not on filedocumented as of this encounter Visit Diagnoses Not on filedocumented in this encounter"
--- OUTSIDE RECORDS SUMMARY | ~2020-03-28 | XMS | Encounter Summary ---
Demographics + + + | Address | [address] | | | [place] [address] | + + + | Home Phone [...] Team Providers + +------+ + | Care Survey Technician Name | Role | Phone | [...] | | | | Mailcode: PV430 | [place], [place] | | | | | [facility] | [address] | | | | | [place], [place] | [phone] | | | | | [address] | | | | | | [phone] | | | +--------+ + + + [...]
--- OUTSIDE RECORDS SUMMARY | ~2020-03-28 | XMS | Encounter Summary ---
Demographics + + + | Address | [address] | | | [place] [address] | + + + | Home Phone [...] Team Providers + +------+ + | Care Gear Straightener Name | Role | Phone | + [...] | unspecified | [address] | Rd [place], | | | | | whether | [place], [place] | [place] | | | | | generalized | [address] | [address] | | | | | or | Phone: | Phone: | | | | | localized, | [phone] | [phone] | | | | | pelvic | Fax: | Fax: | | | | | region and | [phone] | [phone] | | | | | thigh | [...] Pavilion | | | | | | [place], [place] | | | | | | [address] | | | | | | [phone] | | | +--------+---------+ + + + [...] by JORDY Germain. KALYAN COLBY MD [facility] [address] [place] [address] Mailcode: Pv[address] [place] [address] Tesfaye Haskins PA-C - 10/14/2008 [...] is being worked up now by a provisioning analyst for this issue. OBJECTIVE: - On examination [...]
--- OUTSIDE RECORDS SUMMARY | ~2020-03-28 | XMS | Encounter Summary ---
Demographics + + + | Address | [address] | | | [place] [address] | + + + | Home Phone [...] Providers + +------+ + | Care Tool Grinding Technician Name | Role | Phone | [...] | | | Mailcode: PV430 | [place], [place] | | | | | [facility] | [address] | | | | | [place], [place] | [phone] | | | | | [address] | | | | | | [phone] | | | +--------+ + + + [...]
--- OUTSIDE RECORDS SUMMARY | ~2020-03-28 | XMS | Encounter Summary ---
Demographics + + + | Address | [address] | | | [place] [address] | + + + | Home Phone [...] Providers + +------+ + | Care Special Forces Weapons Sergeant Name | Role | Phone | + [...] as of this encounter Progress Notes Interface, Salvationist In - 06/03/2006 3:06 AM PDTCLINIC DATE: [...] by her new primary care physician in [place], and she is requesting a repeat hip [...] this would be inadvisable. Lloyd Garcia M.D. Auctioneer Tobacco, Orthopedics and Rehabilitation / [id number] / [id number] / [id number] / [id number] cc: Ninfa Guillen M.D. [address] [facility], [place] [id number] signed by Interface, Salvationist In at 06/03/2006 3:06 AM PDTInterface, Salvationist In - 06/03/2006 3:06 AM PDTCLINIC DATE: [...] go ahead and send her back to [facility] Radiology Musculoskeletal specialist for a right intraarticular hip injection as this is what she wants. We will currently hold off on hip replacement due to her young age, and she can follow up back in the clinic in 6months' time. Tr Mcghee M.D. Lloyd Garcia M.D. / [id number] / [id number] / [id number] / Tdocumented in this encounter Plan of Treatment Not on filedocumented as of this encounter Visit Diagnoses Not on filedocumented in this encounter"
--- OUTSIDE RECORDS SUMMARY | ~2020-03-28 | XMS | Encounter Summary ---
Demographics + + + | Address | [address] | | | [place] [address] | + + + | Home Phone [...] Team Providers + +------+ + | Care Architect Intern Name | Role | Phone | [...] Pavilion | | | | | | [place], [place] | | | | | | [address] | | | | | | [phone] | | | +--------+ + + + [...]
--- OUTSIDE RECORDS SUMMARY | ~2020-03-28 | XMS | Encounter Summary ---
Demographics + + + | Address | [address] | | | [place] [address] | + + + | Home Phone [...] Team Providers + +------+ + | Care Agricultural Produce Washer Name | Role | Phone | [...] | | | [address] | [address] [place] [place], [place] | | | | | Mailcode: PV430 | [address] | | | | | [facility] | | | | | | [place], [place] | | | | | | [address] | | | | | | [phone] | | | +--------+ + + + [...] 10/30/99 | | | | | | [id number] hours. | | | | | | Dictated 11/01/99. | | | | | | FINDINGS: There is a | | | | | | shallow right rotatory | | | | | | lumbar convexity. | | | | | | [id number] S1 flexion | | | | | [...] | | + +---------+ + + | [facility] DEPARTMENT OF | | | | | RADIOLOGY | | | | + +---------+ + + documented in this encounter Visit Diagnoses Not on filedocumented in this encounter"
--- OUTSIDE RECORDS SUMMARY | ~2020-03-28 | XMS | Encounter Summary ---
Demographics + + + | Address | [address] | | | [place] [address] | + + + | Home Phone [...] Providers + +------+ + | Care Senior Environmental Consultant Name | Role | Phone | [...] | [facility] at [facility] | [address] | | | | | [address] | [address] | | | | | Loop Physician's | [place], [place] | | | | | [address], 3rd floor | [address] | | | | | [place], [place] | [phone] | | | | | [address] | | | | | | [phone] | | | +--------+ + + + [...]
--- OUTSIDE RECORDS SUMMARY | ~2020-03-28 | XMS | Encounter Summary ---
Demographics + + + | Address | [address] | | | [place] [address] | + + + | Home Phone [...] | Casandra Smith | ROBERTO | [place] | | + + + + + Care Team Providers + +------+ + | Care Weatherization And Housing Inspector Name | Role | Phone [...] | | [address] | [address] [place], | | | | | Mailcode: PV430 | [place] [address] | | | | | [facility] | | | | | | [place], [place] | | | | | | [address] | | | | | | [phone] | | | +--------+ + + + [...]
--- OUTSIDE RECORDS SUMMARY | ~2020-03-28 | XMS | Encounter Summary ---
Demographics + + + | Address | [address] | | | [place] [address] | + + + | Home Phone [...] Team Providers + +------+ + | Care Nuclear Auxiliary Operator Name | Role | Phone | [...] | Transcriptions | + + | Interface, Physician'S Assistant In - 02/27/2006 3:05 AM PDT Date: [...] | | Malcom GarciaRT/aceD: 09/14/2003T: 09/15/2003 9:10 [id number] | |bellberna. The proximal greater trochanter fragment [...] |RT/magalie | | | | A | |[id number] | + + documented in this encounter Visit Diagnoses Not on filedocumented in this encounter"
--- OUTSIDE RECORDS SUMMARY | ~2020-03-28 | XMS | Encounter Summary ---
Demographics + + + | Address | [address] | | | [place] [address] | + + + | Home Phone [...] Providers + +------+ + | Care Vacuum Frame Operator Name | Role | Phone | [...] | | | | [facility] | [address] | | | | | [place], [place] | [phone] | | | | | [address] | | | | | | [phone] | | | +--------+ + + + [...]
--- OUTSIDE RECORDS SUMMARY | ~2020-03-28 | XMS | Encounter Summary ---
Demographics + + + | Address | [address] | | | [place] [address] | + + + | Home Phone [...] Providers + +------+ + | Care White Goods Appliance Tech Name | Role | Phone | [...] as of this encounter Progress Notes Interface, Ict Help Desk Officer In - 08/06/2006 1:09 AM PSTCLINIC DATE: [...] provided by Dr. Noland. Lloyd Garcia M.D. Vice President Of Sales, Orthopedics and Rehabilitation / [id number] / [id number] / [id number] / [id number] cc: Helio Noland M.D. [address] [place], [place] [id number] signed by Interface, Ict Help Desk Officer In at 08/06/2006 1: 09 AM PSTdocumented in this encounter Plan of Treatment Not on filedocumented as of this encounter Visit Diagnoses Not on filedocumented in this encounter
--- OUTSIDE RECORDS SUMMARY | ~2020-03-28 | XMS | Encounter Summary ---
Demographics + + + | Address | [address] | | | [place] [address] | + + + | Home Phone [...] Team Providers + +------+ + | Care Construction Driver Name | Role | Phone | [...] | [facility] at [facility] | [address] | | | | | [address] | [address] | | | | | Loop Physician's | [place], [place] | | | | | [address], 3rd floor | [address] | | | | | [place], [place] | [phone] | | | | | [address] | | | | | | [phone] | | | +--------+ + + + [...] CELL | 8.6 | K/cu mm | RELIGIOUS | | | COUNT | | | MEDICAL | | | | | | CENTER - | | | | | | [place] | | + + + + + + | RED CELL | 3.88 | M/cu mm | RELIGIOUS | | | COUNT | | | MEDICAL | | | | | | CENTER - | | | | | | [place] | | + + + + + + | HEMOGLOBIN | 11.5 (A) | 12.1999 - 15 | RELIGIOUS | | | | | g/dL | MEDICAL | | | | | | CENTER - | | | | | | [place] | | + + + + + + | HEMATOCRIT | 33.7 | % | RELIGIOUS | | | | | | MEDICAL | | | | | | CENTER - | | | | | | [place] | | + + + + + + | MCV | 87 | fL | RELIGIOUS | | | | | | MEDICAL | | | | | | CENTER - | | | | | | [facility] | | + + + + + + | MCH | 29.7 | pg | RELIGIOUS | | | | | | MEDICAL | | | | | | CENTER - | | | | | | [place] | | + + + + + + | MCHC | 34.1 | g/dL | RELIGIOUS | | | | | | MEDICAL | | | | | | CENTER - | | | | | | [place] | | + + + + + + | PLATELET | 369 | K/cu mm | RELIGIOUS | | | COUNT | | | MEDICAL | | | | | | CENTER - | | | | | | [place] | | + + + + + + | NEUTROPHIL | 66.6 | % | RELIGIOUS | | | % | | | MEDICAL | | | | | | CENTER - | | | | | | [place] | | + + + + + + | LYMPHOCYTE | 23.2 | % | RELIGIOUS | | | % | | | MEDICAL | | | | | | CENTER - | | | | | | [place] | | + + + + + + | MONOCYTE % | 6.6 | % | RELIGIOUS | | | | | | MEDICAL | | | | | | CENTER - | | | | | | [place] | | + + + + + + | EOS % | 3.1 | % | RELIGIOUS | | | | | | MEDICAL | | | | | | CENTER - | | | | | | [place] | | + + + + + + | BASO % | 0.5 | % | RELIGIOUS | | | | | | MEDICAL | | | | | | CENTER - | | | | | | [place] | | + + + + + + | RDW | 16.7 | % | RELIGIOUS | | | | | | MEDICAL | | | | | | CENTER - | | | | | | [place] | | + + + + + + | MPV | | fL | RELIGIOUS | | | | | | MEDICAL | | | | | | CENTER - | | | | | | [place] | | + + + + + + | NEUTROPHIL | 5.7 | K/cu mm | RELIGIOUS | | | # | | | MEDICAL | | | | | | CENTER - | | | | | | [place] | | + + + + + + | LYMPHOCYTE | 2.0 | K/cu mm | RELIGIOUS | | | # | | | MEDICAL | | | | | | CENTER - | | | | | | [place] | | + + + + + + | MONOCYTE # | 0.6 | K/cu mm | RELIGIOUS | | | | | | MEDICAL | | | | | | CENTER - | | | | | | [place] | | + + + + + + | EOS # | 0.3 | K/cu mm | RELIGIOUS | | | | | | MEDICAL | | | | | | CENTER - | | | | | | [place] | | + + + + + + | BASO # | | | RELIGIOUS | | | | | | MEDICAL | | | | | | CENTER - | | | | | | [place] | | + + + + + + | SEDIMENTATI | 78 | mm/hr | RELIGIOUS | | | ON RATE | | [...] | + + + + + | RELIGIOUS MEDICAL | [address] | [place] [address] | | | [facility] | | | | + + + + + COMPLETE METABOLIC SET (NA,K,CL,CO2,BUN,CREAT,GLUC,CA,AST,ALT,BILI TOTAL,ALK PHOS,ALB,PROT TOTAL) (11/16/2010 9:41 AM PST) + +---------+ + + + | Component | Value | Ref Range | Performed | Pathologist | | | | | At | Signature | + +---------+ + + + | GLUCOSE, | 112 (A) | 65 - 110 mg/dL | RELIGIOUS | | | PLASMA | | | MEDICAL | | | (LAB) | | | CENTER - | | | | | | [place] | | + +---------+ + + + | BUN, PLASMA | 6 | mg/dL | RELIGIOUS | | | (LAB) | | | MEDICAL | | | | | | CENTER - | | | | | | [place] | | + +---------+ + + + | CREATININE | 0.4 | mg/dL | RELIGIOUS | | | PLASMA | | | MEDICAL | | | (LAB) | | | CENTER - | | | | | | [place] | | + +---------+ + + + | TOTAL | 7.1 | g/dL | RELIGIOUS | | | PROTEIN, | | | MEDICAL | | | PLASMA | | | CENTER - | | | (LAB) | | | [place] | | + +---------+ + + + | ALBUMIN, | 3.3 | g/dL | RELIGIOUS | | | PLASMA | | | MEDICAL | | | (LAB) | | | CENTER - | | | | | | [place] | | + +---------+ + + + | CALCIUM, | 8.6 | mg/dL | RELIGIOUS | | | PLASMA | | | MEDICAL | | | (LAB) | | | CENTER - | | | | | | [place] | | + +---------+ + + + | BILIRUBIN | 0.9 | Transcutaneous | RELIGIOUS | | | TOTAL | | Bilirubinometer | MEDICAL | | | | | | CENTER - | | | | | | [place] | | + +---------+ + + + | ALK PHOS | 60 | U/L | RELIGIOUS | | | | | | MEDICAL | | | | | | CENTER - | | | | | | [place] | | + +---------+ + + + | AST(SGOT) | 15 | U/L | RELIGIOUS | | | | | | MEDICAL | | | | | | CENTER - | | | | | | [place] | | + +---------+ + + + | SODIUM, | 139 | mmol/L | RELIGIOUS | | | PLASMA | | | MEDICAL | | | (LAB) | | | CENTER - | | | | | | [place] | | + +---------+ + + + | POTASSIUM, | 4.1 | mmol/L | RELIGIOUS | | | PLASMA | | | MEDICAL | | | (LAB) | | | CENTER - | | | | | | [place] | | + +---------+ + + + | CHLORIDE, | 107 | mmol/L | RELIGIOUS | | | PLASMA | | | MEDICAL | | | (LAB) | | | CENTER - | | | | | | [place] | | + +---------+ + + + | TOTAL CO2, | 26 | mmol/L | RELIGIOUS | | | PLASMA | | | MEDICAL | | | (LAB) | | | CENTER - | | | | | | [place] | | + +---------+ + + + | ALT (SGPT) | 11 | U/L | RELIGIOUS | | | | | | MEDICAL | | | | | | CENTER - | | | | | | [place] | | + +---------+ + + + | ANION GAP | 10 | | RELIGIOUS | | | | | | MEDICAL | | | | | | CENTER - | | | | | | [place] | | + +---------+ + + + | OSMOLALITY, | 286 | | RELIGIOUS | | | CALCULATED | | | [...] | + + + + + | RELIGIOUS MEDICAL | [address] | [place] [address] | | | [facility] | | | | + + + + + documented in this encounter Visit Diagnoses Not on filedocumented in this encounter"
--- OUTSIDE RECORDS SUMMARY | ~2020-03-28 | XMS | Encounter Summary ---
Demographics + + + | Address | [address] | | | [place] [address] | + + + | Home Phone [...] Team Providers + +------+ + | Care Composite Bond Worker Name | Role | Phone | + +------+ + PCP | Unavailable | + +------+ + Encounter Details +--------+ + + + + | Date | Type | Department | Care Team | Description | +--------+ + + + + | // | Results | | Other, Faculty | | | 2003 | Only | | [phone] | | +--------+ + + + + [...] + + + + + | [facility] DEPARTMENT OF | [address] | [place] [address] | | | PATHOLOGY | [address] | | | + + + + + | [place] DEPARTMENT OF | [address] | [place] [address] | | | PATHOLOGY | [address] [...] | + + + + + | [facility] OF | [address] | [place] [address] | | | PATHOLOGY | [address] | | | + + + + + | [facility] OF | [address] | [place] [address] | | | PATHOLOGY | [address] [...] + + + | [facility] | [address] | [place] [address] | | | LABORATORY | | | [...] DEPARTMENT OF | [address] | [place] [address] | | | PATHOLOGY | [address] | | | + + + + + | [facility] DEPARTMENT OF | [address] | [place] [address] | | | PATHOLOGY | [address] [...] + + + + + | [facility] DEPARTMENT OF | [address] [facility] | [place] [address] | | | PATHOLOGY | [address] | | | + + + + + | [facility] DEPARTMENT OF | [address] | [place] [address] | | | PATHOLOGY | [address] [...] + + + + + | [facility] DEPARTMENT OF | [facility] | [place] [address] | | | PATHOLOGY | [address] | | | + + + + + | [place] DEPARTMENT OF | [address] | [place] [address] | | | PATHOLOGY | [address] [...] | + + + + + | [facility] | [address] [facility] | [place] [address] | | | PATHOLOGY | [address] | | | + + + + + | [facility] | [address] [place] [address] | [place] [address] | | | PATHOLOGY | [address] [...] | + + + + + | [facility] | [address] [facility] | [place] [address] | | | PATHOLOGY | [address] | | | + + + + + | [facility] | [facility] | [place] [address] | | | PATHOLOGY | [address] [...] DEPARTMENT OF | [address] | [place] [address] | | | PATHOLOGY | [address] | | | + + + + + | [facility] DEPARTMENT OF | [address] | [place] [address] | | | PATHOLOGY | [address] | | | + + + + + CREATININE, PLASMA (10/04/2003 6:15 AM PST) + +-------+ + + + | Component | Value | Ref Range | Performed | Pathologist | | | | | At | Signature | + +-------+ + + + | CREATININE | 0.8 | 0.6 - 1.1 mg/dL | [facility] | | | PLASMA | | [...] + + + + + | [facility] DEPARTMENT OF | [address] [facility] | [place] [address] | | | PATHOLOGY | [address] | | | + + + + + | [facility] DEPARTMENT OF | [address] [facility] | [place] [address] | | | PATHOLOGY | [address] [...] DEPARTMENT OF | [address] | [place] [address] | | | PATHOLOGY | [address] | | | + + + + + | [facility] DEPARTMENT | [address] | [place] [address] | | | PATHOLOGY | [address] [...] + + + + + | [facility] DEPARTMENT OF | [address] | [place] [address] | | | PATHOLOGY | [address] | | | + + + + + | [facility] DEPARTMENT OF | [address] | [place] [address] | | | PATHOLOGY | [address] [...] | + + + + + | [facility] | [address] | [place] [address] | | | PATHOLOGY | [address] | | | + + + + + | [facility] | [address] | [place] [address] | | | PATHOLOGY | [address] | | | + + + + + documented in this encounter Visit Diagnoses Not on filedocumented in this encounter"
--- OUTSIDE RECORDS SUMMARY | ~2020-03-28 | XMS | Encounter Summary ---
Demographics + + + | Address | [address] | | | [place] [address] | + + + | Home Phone [...] Team Providers + +------+ + | Care Order Checker Name | Role | Phone | [...] | | | Mailcode: [id number] | [place], [place] | | | | | [facility] | [address] | | | | | [place], [place] | [phone] | | | | | [address] | | | | | | [phone] | | | +--------+ + + + [...]
--- OUTSIDE RECORDS SUMMARY | ~2020-03-28 | XMS | Encounter Summary ---
Demographics + + + | Address | [address] | | | [place] [address] | + + + | Home Phone [...] + + + + + | Casandra mSith | ROBERTO | [place] | | + + + + + Care Team Providers + +------+ + | Care Food Services Coordinator Name | Role | Phone [...] | | | | | | [address] [place], [place] | | | | | | [address] | | | | | | [phone] | | | +--------+---------+ + + + [...] | + + +--------+ + + | MD COLLECTION VENOUS | Procedures | Routin | [...] + + + + | PRODUCT | [id number] | | [facility] | | | UNIT [...] DEPARTMENT OF | [address] | [place] [address] | | | PATHOLOGY | [address] | | | + + + + + | [facility] DEPARTMENT OF | [address] | [place] [address] | | | PATHOLOGY | [address] [...] Performed At | + + + | [id number] Estimated GFR > 60 mL/min/1.73 sq m if non- | [facility] | | [place] [id number] Estimated GFR > 60 mL/min/1.73 sq m if | DEPARTMENT OF | | [place] GFR is estimated using the MDRD equation [...] + + + + + | [facility] | [facility] | [place] [address] | | | PATHOLOGY | [address] | | | + + + + + | [facility] | [address] [place] [address] | [place] [address] | | | PATHOLOGY | [address] [...] | + + + + + | [facility] DEPARTMENT OF | [address] [facility] | [place] [address] | | | PATHOLOGY | [address] | | | + + + + + | [facility] DEPARTMENT OF | [address] [facility] | [place] [address] | | | PATHOLOGY | [address] [...] | + + + + + | [facility] DEPARTMENT OF | [address] | [place] [address] | | | PATHOLOGY | [address] | | | + + + + + | [facility] DEPARTMENT OF | [address] | [place] [address] | | | PATHOLOGY | [address] [...] view image for the detailed interpretation from Pollen results. | CARDIOLOGY | | | | + + + + + + + + | Performing | Address | City/State/Zipcode | Phone Number | | Organization | | | | + + + + + | [facility] DEPT OF | [address] | [place], [place] | | | CARDIOLOGY | [facility] | [address] | | + + + + + | [facility] OF | [address] | [place], [place] | | | CARDIOLOGY | [address] | [address] | | + + + + + documented in this encounter Visit Diagnoses + + | Diagnosis | + + | Other specified pre-operative examination - Primary | + + documented in this encounter
--- OUTSIDE RECORDS SUMMARY | ~2020-03-28 | XMS | Encounter Summary ---
Demographics + + + | Address | [address] | | | [place] [address] | + + + | Home Phone [...] Providers + +------+ + | Care Mold Carrier Name | Role | Phone | + [...] of this encounter Progress Notes Interface, Clinical Team Manager In - 06/19/2006 1:01 AM PDTCLINIC DATE: [...] ALLERGIES: None. SOCIAL HISTORY: She lives in [facility], and she is currently not working. [...] the appointment. Her current phone number is [phone]. At this point, we will not schedule her for a followup until we have these other appointments, and then we will have her followup with . Again, we will forward our recommendations to him. Pricilla Metcalf M.D. Kalyan Wu M.D. [facility] / [id number] / [id number] / [id number] / [id number] cc: Lloyd Garcia M.D. [id number] docume nted in this encounter Plan of Treatment Not on filedocumented as of this encounter Visit Diagnoses Not on filedocumented in this encounter"
--- OUTSIDE RECORDS SUMMARY | ~2020-03-28 | XMS | Encounter Summary ---
Demographics + + + | Address | [address] | | | [place] [address] | + + + | Home Phone [...] Providers + +------+ + | Care Production Assembly Supervisor Name | Role | Phone [...] as of this encounter Progress Notes Interface, Risk Investigator In - 08/10/2006 3:02 AM PSTCLINIC DATE: [...] her own car and requires a large dmbat-idvuyfi-tful vehicle for her friends to qa tester her own. She is able to ambulate [...] adduction which is not painful. X-rays show ecqovwnl-fs-iymkih right hip DJD with joint space narrowing asymmetrically and large marginal osteocytes, most notably superiorly, posteriorly, as well as inferiorly and less so anteriorly. Right knee x-rays show cxlj-vt-hchzcnll degenerative changes. No radiopaque loose bodies. AP, lateral, and oblique views of the lumbosacral spine show jsjj-kj-ecmweypc facet arthrosis at L3-L4, L4-L5, and L5-S1, right greater than left. Disk spaces are well maintained. There is no spondylolisthesis or spondylolysis. ASSESSMENT: Amwnxaca-ud-peyuuf hypotrophic osteoarthritis of the right hip; yyvk-zq-rddwszwg degenerative changes of the right knee; and sadm-mt-beuamhaj, right greater than left, lumbar and lumbosacral [...] the right hip. Lloyd Garcia M.D. / [id number] / [id number] / [id number] / [id number] C: 06/12/2000 otilia cc: JILLIAN TODD M.D. PJuan JoseOJuan Jose ALEXANDRE [place], [place] [address]Wfkeabikuwkart signed by Interface, Risk Investigator In at 08/10/2006 3: 02 AM PSTdocumented in this encounter Plan of Treatment Not on filedocumented as of this encounter Visit Diagnoses Not on filedocumented in this encounter"
--- OUTSIDE RECORDS SUMMARY | ~2020-03-28 | XMS | Encounter Summary ---
Demographics + + + | Address | [address] | | | [place] [address] | + + + | Home Phone [...] Team Providers + +------+ + | Care Coal Washer Tender Name | Role | Phone | [...] | | Surgery -Hand | [address] [facility] | | | | | Surgery [address] | [place] [address] | | | | | [address] | | | | | | Mailcode: PP420 | | | | | | [facility] | | | | | | [place], [place] | | | | | | [address] | | | | | | [phone] | | | +--------+ + + + [...] + + + + | PRODUCT | [id number] | | [facility] | | | UNIT [...] [facility] DEPARTMENT OF | [address] | [place] [address] | | | PATHOLOGY | [address] | | | + + + + + | [facility] DEPARTMENT OF | [address] | [place] [address] | | | PATHOLOGY | [address] [...] + + + + | PRODUCT | [id number] | | [facility] | | | UNIT [...] HOSPITAL DEPARTMENT OF | [address] [facility] | [place] [address] | | | PATHOLOGY | [address] | | | + + + + + | [facility] DEPARTMENT OF | [address] [facility] | [place] [address] | | | PATHOLOGY | [address] [...] [facility] | [address] | [place] [address] | | | PATHOLOGY | [address] | | | + + + + + | [facility] | [address] | [place] [address] | | | PATHOLOGY | [address] | | | + + + + + documented in this encounter Visit Diagnoses Not on filedocumented in this encounter"
--- OUTSIDE RECORDS SUMMARY | ~2020-03-28 | XMS | Encounter Summary ---
Demographics + + + | Address | [address] | | | [place] [address] | + + + | Home Phone [...] Providers + +------+ + | Care Local Truck Driver Name | Role | Phone [...] as of this encounter Progress Notes Interface, General Purchasing Agent In - 02/27/2006 3:05 AM PDTClinic Date: [...] M.D. Lloyd Garcia M.D. RT / HS [id number] / [id number] / [id number] / [id number] Watt, General Purchasing Agent In - 02/27/2006 3:05 AM PDTClinic Date: [...] that there is any deep infection. Lloyd aGrcia M.D. Cement Gun Operator [facility] Jackelyn A [id number] cc: Ninfa Barrientos MD [address] [place] [address]Uzcbvblmreplor signed by Interface, General Purchasing Agent In at 6 3:05 AM PDTdocumented in this encounter Plan of Treatment Not on filedocumented as of this encounter Visit Diagnoses Not on filedocumented in this encounter"
--- OUTSIDE RECORDS SUMMARY | ~2020-03-28 | XMS | Encounter Summary ---
Demographics + + + | Address | [address] | | | [place] [address] | + + + | Home Phone [...] Providers + +------+ + | Care Metal Stamping Machine Operator Name | Role | Phone [...] [address] | | | | | | [address] | | | | | | [address] | | | | | | [place], [place] | | | | | | [address] | | | | | | [phone] | | | +--------+ + + + [...]
--- OUTSIDE RECORDS SUMMARY | ~2020-03-28 | XMS | Encounter Summary ---
Demographics + + + | Address | [address] | | | [place] [address] | + + + | Home Phone [...] Providers + +------+ + | Care Physical Therapy Coordinator Name | Role | Phone | [...] | [facility] at [facility] | MEGAN Reddy [address] | | | | | [address] | [address] | | | | | Loop Physician's | [place], [place] | | | | | [address], 3rd floor | [address] | | | | | [place], [place] | [phone] | | | | | [address] | | | | | | [phone] | | | +--------+ + + + [...]
--- OUTSIDE RECORDS SUMMARY | ~2020-03-28 | XMS | Encounter Summary ---
Demographics + + + | Address | [address] | | | [place] [address] | + + + | Home Phone [...] Team Providers + +------+ + | Care Lapper Name | Role | Phone | [...] | | | | | Osteoarthros | [address] | Pavilion | | | | | is, | | [place], [place] | | | | | unspecified | | [address] | | | | | whether | | Phone: | | | | | generalized | | [phone] | | | | | or | | Fax: | | | | | localized, | | [phone] | | | | | pelvic | [...] | | [address] | [address] [place], | | | | | Mailcode: [id number] | [place] [address] | | | | | [facility] | | | | | | [place], [place] | | | | | | [address] | | | | | | [phone] | | | +--------+---------+ + + + [...] Walks with glut medius limp. 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 Pain is in inner groin and posteriorly. [...] + + | Performing | Address | City/State/[facility] | Phone Number | | Organization | [...]
--- OUTSIDE RECORDS SUMMARY | ~2020-03-28 | XMS | Encounter Summary ---
Demographics + + + | Address | [address] | | | [place] [address] | + + + | Home Phone [...] Providers + +------+ + | Care Social Sciences Chair Name | Role | Phone | + [...] W | | | | ON | [facility] 4th Floor [address] | | | | | [address] | Road [place], [place] | | | | | Mailcode: CH4S | [address] | | | | | [facility] | | | | | | and Healing, | | | | | | Building 1,4th Floor | | | | | | [place], [place] | | | | | | [address] | | | | | | [phone] | | | +--------+ + + + [...]
--- OUTSIDE RECORDS SUMMARY | ~2020-03-28 | XMS | Encounter Summary ---
Demographics + + + | Address | [address] | | | [place] [address] | + + + | Home Phone [...] Team Providers + +------+ + | Care Bouffant Curtain Machine Tender Name | Role | Phone [...] as of this encounter Progress Notes Interface, Last Inserter In - 04/28/2005 6:17 PM PDTClinic Date: [...] is completed this weekend. Lloyd Garcia M.D. Financial Service Rep, [facility]ics [facility] Rehabilitation / [id number] / [id number] / [id number] / [id number] cc: Ninfa Guillen M.D. [address] [place] [address], [place] [address]Oqitjkpsuwqysa signed by Interface, Last Inserter In at 04/28/2005 6:1 7 PM PDTdocumented in this encounter Plan of Treatment Not on filedocumented as of this encounter Visit Diagnoses Not on filedocumented in this encounter"
--- OUTSIDE RECORDS SUMMARY | ~2020-03-28 | XMS | Encounter Summary ---
Demographics + + + | Address | [address] | | | [place] [address] | + + + | Home Phone [...] Team Providers + +------+ + | Care Deburring Machine Operator Name | Role | Phone [...] as of this encounter Discharge Summaries Interface, Inspector Repairer Sandstone In 04/28/2005 5:10 PM PDTAdmission Date: 09/25/2003 [...]
--- OUTSIDE RECORDS SUMMARY | ~2020-03-28 | XMS | Encounter Summary ---
Demographics + + + | Address | [address] | | | [place] [address] | + + + | Home Phone [...] Providers + +------+ + | Care Printing Roller Polisher Name | Role | Phone | [...] CENTER | | | | | | [address] | | | | | | [address] | | | | | | [facility] | | | | | | [place] [employer], [place] | | | | | | [address] | | | | | | [phone] | | | +--------+ + + + [...] + + + +---------+ + + | [place]-3 Fatty | Take by mouth. | | [...] of | | | | | | A6ogaohdip/superior | | | | | | corner, [...] | | + +---------+ + + | [facility] DEPARTMENT OF | | | | | RADIOLOGY | | | | + +---------+ + + documented in this encounter Visit Diagnoses + + | Diagnosis | + + | Lumbar radiculopathy Thoracic or lumbosacral neuritis or radiculitis, unspecified | + + documented in this encounter"
--- OUTSIDE RECORDS SUMMARY | ~2020-03-28 | XMS | Encounter Summary ---
Demographics + + + | Address | [address] | | | [place] [address] | + + + | Home Phone [...] + +------+ + | Care Touch Up Painter Hand Name | Role | Phone | [...] | | | | [facility] | [address] | | | | | [place], [place] | [phone] | | | | | [address] | | | | | | [phone] | | | +--------+ + + + [...]
--- OUTSIDE RECORDS SUMMARY | ~2020-03-28 | XMS | Encounter Summary ---
Demographics + + + | Address | [address] | | | [place] [address] | + + + | Home Phone [...] | | | | due to | [place], [place] | [place], | | | | | internal | [address] | [place] [address] | | | | | joint | Phone: | Phone: | | | | | prosthesis | [phone] | [phone] | | | | | ([facility]) | Fax: | Fax: | | | | | | [phone] | [phone] | +--------+--------+ + + + + Encounter [...] | | | | Loop Physician's | [place], [place] | internal joint | | | | [address], 3rd floor | [address] | prosthesis (HCC) | | | | [place], [place] | [phone] | (Primary Dx) | | | | [address] | | | | | | [phone] | | | +--------+---------+ + + + [...] DISEASES CLINIC FOLLOW UP Primary Care Physician: [address] [place] [address] Ms. Galdamez presents to Infectious Diseases Clinic [...] a nd was therefore admitted to [facility] out of concern for R hip infection. [...] discharged in stable condition on 10/22/2010 to [facility] with OPAT & Orthopedic follow-up planned in 2 weeks ti ar. In OPAT follow-up on 11/09/2010 Ms. Galdamez [...] W-FE,OTHER MIN (CENTRUM ORAL) Take by mouth. [place]-3 Fatty Acids-Vitamin E (FISH OIL) 1,000 mg [...] follow up in Infectious Diseases Clinic in [place]. We are hap py to be consulted again should infectious complications arise. I spent a total of 20 minutes face to face with the patient and over 50% was time spent in counseling in which we discussed infection, antibiotics, duration of therapy, lab results, a nd follow-up planning. Carolina Putnam PA-C [facility] Department of Infectious Disease Outpatient IV Antibiotic Therapy Clinic (OPAT) Pager ID: [phone] [facility]. 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
--- OUTSIDE RECORDS SUMMARY | ~2020-03-28 | XMS | Encounter Summary ---
Demographics + + + | Address | [address] | | | [place] [address] | + + + | Home Phone [...] Team Providers + +------+ + | Care Painter Ordnance Name | Role | Phone | + [...] as of this encounter Progress Notes Interface, Bleach Packer In - 07/14/2006 1:10 AM PDTCLINIC DATE: [...] improve her hip pain. Lloyd Garcia M.D. Radiologic Technician, Orthopedics and Rehabilitation / [id number] / [id number] / [id number] / [id number] cc: Helio Xie M.D. [place], [place] [address]Akviqsaersuksv signed by Interface, Bleach Packer In at 07/14/2006 1:1 0 AM PDTdocumented in this encounter Plan of Treatment Not on filedocumented as of this encounter Visit Diagnoses Not on filedocumented in this encounter"
--- OUTSIDE RECORDS SUMMARY | ~2020-03-28 | XMS | Encounter Summary ---
Demographics + + + | Address | [address] | | | [place] [address] | + + + | Home Phone [...] floor | | | | | | [place], [place] | | | | | | [address] | | | | | | [phone] | | | +--------+------+ + + + [...] + + | [facility] DEPARTMENT OF | [facility] | [place] [address] | | | PATHOLOGY | [address] | | | + + + + + | [facility] DEPARTMENT OF | [address] [facility] | [place] [address] | | | PATHOLOGY | [address] [...] DEPARTMENT OF | [address] | [place] [address] | | | PATHOLOGY | [address] | | | + + + + + | [facility] DEPARTMENT OF | [address] | [place] [address] | | | PATHOLOGY | [address] [...] [facility] DEPARTMENT | [address] [facility] | [place] [address] | | | PATHOLOGY | [address] | | | + + + + + | [facility] DEPARTMENT | [address] [facility] | [place] [address] | | | PATHOLOGY | [address] [...] [facility] DEPARTMENT OF | [address] | [place] [address] | | | PATHOLOGY | [address] | | | + + + + + | [facility] DEPARTMENT OF | [address] | [place] [address] | | | PATHOLOGY | [address] [...] Lab) [facility] | | | [place] [address] | | | [place] [address] | | + + + + + + + + | Performing | Address | City/State/Zipcode | Phone Number | | Organization | | | | + + + + + | [facility] | [address] | [place] [address] | | | LABORATORY | | | | + + + + + documented in this encounter Visit Diagnoses + + | Diagnosis | + + | Hip pain Pain in joint, pelvic region and thigh | + + | Hip replacement Hip joint replacement by other means | + + documented in this encounter"
--- OUTSIDE RECORDS SUMMARY | ~2020-03-28 | XMS | Encounter Summary ---
Demographics + + + | Address | [address] | | | [place] [address] | + + + | Home Phone [...] Providers + +------+ + | Care Railroad Signal And Switch Operator Name | Role | Phone | [...] as of this encounter Progress Notes Interface, Mines Inspector In - 04/19/2006 3:09 AM PDTCLINIC [...] questions. Jason Castano M.A. Orthopedics / HS [id number] / [id number] / [id number] / Tdocumented in this encounter Plan of Treatment Not on filedocumented as of this encounter Visit Diagnoses Not on filedocumented in this encounter"
--- OUTSIDE RECORDS SUMMARY | ~2020-03-28 | XMS | Encounter Summary ---
Demographics + + + | Address | [address] | | | [place] [address] | + + + | Home Phone [...] Providers + +------+ + | Care Speech Language Pathologist Prn Name | Role | Phone | + [...] of this encounter Progress Notes Interface, Oil Refinery Process Technician In - 04/28/2005 8:48 PM PDTClinic Date: [...] well but presented to the ER in [place] approximately a week and half ago with [...] up with her primary care doctor in [place] and return to clinic and see me on an as-needed basis only. Lloyd Garcia M.D. Gluing Machine Adjuster, Orthopedics and Rehabilitation / [id number] / [id number] / [id number] / [id number] cc: Dr. Pearce [facility] [address] [place] [address] Rinaldi M.D. [address] [place] [address], [place] [id number] signed by Interface, Oil Refinery Process Technician In at 04/28/2005 8:4 8 PM PDTdocumented in this encounter Plan of Treatment Not on filedocumented as of this encounter Visit Diagnoses Not on filedocumented in this encounter"
--- OUTSIDE RECORDS SUMMARY | ~2020-03-28 | XMS | Encounter Summary ---
Demographics + + + | Address | [address] | | | [place] [address] | + + + | Home Phone [...] Team Providers + +------+ + | Care Nanoelectronics Engineer Name | Role | Phone | + +------+ + | Travis Mcginnis MD | PCP | | + +------+ + Encounter Details +--------+ + + + + | Date | Type | Department | Care Team | Description | +--------+ + + + + | 10/14/ | Results | LAB REFERRED TESTS | Other, Faculty | | | 2010 | Only | [address] [facility] | [phone] | | | | | [address] | | | | | | [place] | | | | | | [address] | | | +--------+ + + + [...] + + | [facility] | [address] | [place], [place] | | | CARDIOLOGY | [address] | [address] | | + + + + + documented in this encounter Visit Diagnoses Not on filedocumented in this encounter"
--- OUTSIDE RECORDS SUMMARY | ~2020-03-28 | XMS | Encounter Summary ---
Demographics + + + | Address | [address] | | | [place] [address] | + + + | Home Phone [...] Team Providers + +------+ + | Care Rug Touch Up Painter Name | Role | Phone | [...] | | | | | | [place], [place] | | | | | | [address] | | | | | | [phone] | | | +--------+ + + + [...] ON | | | | | | [facility], ACC# [id number], | | | | | | DONE [...]
--- OUTSIDE RECORDS SUMMARY | ~2020-03-28 | XMS | Encounter Summary ---
Demographics + + + | Address | [address] | | | [place] [address] | + + + | Home Phone [...] Team Providers + +------+ + | Care Staging Technician Name | Role | Phone | [...] | | | | Mailcode: PV430 | [place], [place] | | | | | [facility] | [address] | | | | | [place], [place] | [phone] | | | | | [address] | | | | | | [phone] | | | +--------+ + + + [...]
--- OUTSIDE RECORDS SUMMARY | ~2020-03-28 | XMS | Encounter Summary ---
Demographics + + + | Address | [address] | | | [place] [address] | + + + | Home Phone [...] Providers + +------+ + | Care Measurement Technician Name | Role | Phone | [...] as of this encounter Progress Notes Interface, Box Car Washer In - 07/28/2006 5:01 AM PSTCLINIC DATE: [...] from earlier surgical intervention. Lloyd Garcia M.D. [facility] / [id number] / [id number] / [id number] / cc: Helio Noland M.D. [address] [place], [place] [address]Bfkgtjwwrrvbfj signed by Interface, Box Car Washer In at 07/28/2006 5: 01 AM PSTInterface, Box Car Washer In - 07/28/2006 5:01 AM PSTCLINIC DATE: [...] The case has been reassessed by Dr. Gacria and has been felt that she continue [...] weeks' time. Malcom Her M.D. / SALEEM [id number] / [id number] / [id number] / [id number] Tdocumented in this encounter Plan of Treatment Not on filedocumented as of this encounter Visit Diagnoses Not on filedocumented in this encounter"
--- OUTSIDE RECORDS SUMMARY | ~2020-03-28 | XMS | Encounter Summary ---
Demographics + + + | Address | [address] | | | [place] [address] | + + + | Home Phone | | + + + | Preferred Language | Unknown | + + + | Marital Status | | + + + | Muslim Affiliation | 1076 | + + + | Race | Unknown | + + + | Ethnic Group | Unknown | + + + Author + + + | Author | [facility] | | | and [place] | + + + | Organization | [facility] | | [...] Team Providers + +------+ + | Care C Application Developer Name | Role | Phone | + +------+ + | Eric Krishna MD | PCP | | + +------+ + Encounter Details +--------+ + + + + | Date | Type | Department | Care Team | Description | +--------+ + + + + | 10/18/ | Hospital | [facility] | Conversion | Pain | | 2018 | Encounter | CONVERSION DEP 888 | Transaction, | | | | | ARNIE LYLES | Provider Unknown | | | | | [place] | [phone] | | | | | [address] | | | | | | [phone] | | | +--------+ + + + [...] RODRIGUEZ | | | | | | [address] | | | | | | | [...]
--- OUTSIDE RECORDS SUMMARY | ~2020-03-28 | XMS | Encounter Summary ---
Demographics + + + | Address | [address] | | | [place] [address] | + + + | Home Phone [...] Providers + +------+ + | Care Chief Cruiser Name | Role | Phone | + [...] | | | | | [place], | | | | | | [place] [address] | | | +--------+ + + + [...]
--- OUTSIDE RECORDS SUMMARY | ~2020-03-28 | XMS | Encounter Summary ---
Demographics + + + | Address | [address] | | | [place] [address] | + + + | Home Phone [...] Team Providers + +------+ + | Care Reimbursement Specialist Name | Role | Phone | [...] Pavilion | | | | | | [place], [place] | | | | | | [address] | | | | | | [phone] | | | +--------+ + + + [...]
--- OUTSIDE RECORDS SUMMARY | ~2020-03-28 | XMS | Encounter Summary ---
Demographics + + + | Address | [address] | | | [place] [address] | + + + | Home Phone [...] Team Providers + +------+ + | Care Toll Line Mechanic Name | Role | Phone [...] as of this encounter Progress Notes Interface, Horse Riding Coach Or Instructor In - 08/10/2006 3:02 AM PSTCLINIC DATE: [...] her own car and requires a large qwfnf-siricip-xsyp vehicle for her friends to line walker her own. She is able to ambulate [...] adduction which is not painful. X-rays show fssuayqx-iy-kaswxa right hip DJD with joint space narrowing asymmetrically and large marginal osteocytes, most notably superiorly, posteriorly, as well as inferiorly and less so anteriorly. Right knee x-rays show enpy-ez-xbedluhg degenerative changes. No radiopaque loose bodies. AP, lateral, and oblique views of the lumbosacral spine show txqo-ds-hwswvqda facet arthrosis at L3-L4, L4-L5, and L5-S1, right greater than left. Disk spaces are well maintained. There is no spondylolisthesis or spondylolysis. ASSESSMENT: Bflewhpu-kg-xdwkiy hypotrophic osteoarthritis of the right hip; tnem-df-njqmcyup degenerative changes of the right knee; and dfte-vi-rtmivpch, right greater than left, lumbar and lumbosacral [...] the right hip. Lloyd Garcia M.D. / [id number] / [id number] / [id number] / [id number] C: 06/12/2000 otilia cc: JILLIAN TODD M.D. PJuan JoseOJuan Jose [place], [place] [address]Ikebvjblynzoqn signed by Interface, Horse Riding Coach Or Instructor In at 08/10/2006 3: 02 AM PSTdocumented in this encounter Plan of Treatment Not on filedocumented as of this encounter Visit Diagnoses Not on filedocumented in this encounter"
--- OUTSIDE RECORDS SUMMARY | ~2020-03-28 | XMS | Encounter Summary ---
Demographics + + + | Address | [address] | | | [place] [address] | + + + | Home Phone [...] Providers + +------+ + | Care Field Contractor Name | Role | Phone | [...] | | | | | | | [address] | | | | | | | [address] | | | | | | | [address] 2SE[address]UHN[address] | | | | | | | Rose | | | | | | | [place] | | | | | | | (MNP/OLD [facility]) | | | | | | | [place], | | | | | | | [place] [address] | +--------+--------+ + + + + Encounter Details +--------+ + + + + | Date | Type | Department | Care Team | Description | +--------+ + + + + | 09/06/ | Hospital | [facility] [address] | Tyrone Colby MD | | | 2007 - | Encounter | [address] [facility] [address] | [address] [facility] | | | | | 2SE/UHN85 | [facility] | | | 09/09/ | | [address] | [place], [place] | | | 2007 | | (MNP/[facility]) | [address] | | | | | [place], [place] | [phone] | | | | | [address] | | | +--------+ + + + [...] Findings, Treatment, and Complications Brief Hospital Course: Shleby Galdamez was admitted for the above-stated condition and underwent the above-stated o peration. Tolerated surgery well. No complications. Hemovac drain removed on post-op day #1. Angulo catheter removed on post-op day #3. Radiation oncology team was consulted and [facility] administered a single radiation treatment as [...] right hip. 0. Needs continued PT/OT at [facility] 1. You may remove dressing 3 days after your surgery and OK for shower thereafter as long a s the incision is not draining. Sponge bath until dressings off. No soaking in tub, pool, et c. If there is drainage after [address] new guaze on the incision and call the Orthopaedi c clinic [phone]. 2. Continue to take Aspirin 325mg twice a day for a total of 6 weeks. Stop if you have stom ach upset or blood in your stool. Let your surgeon know if you have had GI bleeding in the p ast after taking Aspirin or NSAID's. 3. DO NOT let anyone start you on Antibiotics if they suspect your wound is infected. Call fire prevention captain [facility] Orthopaedist first. Call [phone] for daytime and weekdays, or [phone] for nights and weekends. If you have [...] Dr. Colby in 2 wks. Please call [phone] now to confirm appointment. Follow Up Tests: (Tests at [facility] must be entered into Induction Manager) none Condition On Discharge: Good Discharge Medications: [...] a planned readmission: No Discharging Provider: MAXIMILIANO CHISOHLM MD Date Completed: 09/09/08 Discharging Attending: Tyrone [...] incision and call the Orthopaedi c clinic [phone]. 2. Continue to take Aspirin 325mg twice a day for a total of 6 weeks. Stop if you have stom ach upset or blood in your stool. Let your surgeon know if you have had GI bleeding in the p ast after taking Aspirin or NSAID's. 3. DO NOT let anyone start you on Antibiotics if they suspect your wound is infected. Call fire prevention captain [facility] Orthopaedist first. Call [phone] for daytime and weekdays, or [phone] for nights and weekends. If you have [...] Dr. Colby in 2 wks. Please call [phone] now to confirm appointment. Follow Up Tests: (Tests at [facility] must be entered into [facility]) none Condition On Discharge: Good Discharge [...] will monitor this. Also will D/C angulo. Yeiym, Faculty - 8 12:00 AM Shelby Thompson [id number] [facility] REC NUMBER: [id number] NAME : Shelby Galdamez DATE : 1960 Admit Date: 09/06/2008 Discharge Date: 09/09/2008 PHYSICIAN'S REQUEST FOR HOME HEALTH SERVICES Relevant History: Location to receive services if other than home: Allergies: Height: Weight: Ordering Physician: [address] [facility] [address], [place] [address] Physician to follow for ongoing home health orders: PCP Name: PCP Phone: Discharge Need(s): 1. Fdc Facility Discharge Vendor: [facility] Discharge Suggested First Visit/Delivery Date: Discharge Service/Equipment: 2. Transportation Discharge Vendor: Medicaid - [place] Discharge Suggested First Visit/Delivery Date: Discharge Service/Equipment: stretcher 12:30pm Re Etcher: Tr Rosales - 09/08/2008 2:22 PM PSTRADIATION [...] as able . Tasha Harding OTR//L Pager [phone] Tyrone Haney - 2007 7:55 AM PST [...] plan of care. TYRONE COLBY MD [facility] [address]se[address]uhn[address] [place] [address] Taz Rand - 08/30 5:50 AM PST [...] DEPARTMENT OF | [address] | [place] [address] | | | PATHOLOGY | [address] | | | + + + + + | [facility] DEPARTMENT OF | [address] | [place] [address] | | | PATHOLOGY | [address] [...] [facility] DEPARTMENT OF | [address] | [place] [address] | | | PATHOLOGY | [address] | | | + + + + + | [facility] DEPARTMENT OF | [address] | [place] [address] | | | PATHOLOGY | [address] [...] + | [facility] | [address] [facility] | [place] [address] | | | PATHOLOGY | [address] | | | + + + + + | [facility] | [address] [facility] | [place] [address] | | | PATHOLOGY | [address] [...] | [facility] DEPARTMENT OF | [address] [facility] | [place] [address] | | | PATHOLOGY | [address] | | | + + + + + | [facility] DEPARTMENT OF | [address] [facility] | [place] [address] | | | PATHOLOGY | [address] [...] | [facility] DEPARTMENT OF | [address] | [place] [address] | | | PATHOLOGY | [address] | | | + + + + + | [facility] DEPARTMENT OF | [address] | [place] [address] | | | PATHOLOGY | [address] [...] | | THERAPY | | | | TAX ATTORNEY | | | | + + + [...] [facility] | [address] | [place], [place] | | | THERAPY | [address] | [address] | | + + + + + | [facility] | [address] | [place], [place] | | | THERAPY | [address] | [address] | | + + + + + [...] Lynn, | | | | | | TAX ATTORNEY | | | | + + + [...] [facility] | [address] | [place], [place] | | | THERAPY | [address] | [address] | | + + + + + | [facility] | [address] | [place], [place] | | | THERAPY | [address] | [address] | | + + + + + [...] | [facility] DEPARTMENT OF | [address] [facility] | [place] [address] | | | PATHOLOGY | [address] | | | + + + + + | [facility] DEPARTMENT OF | [address] [facility] | [place] [address] | | | PATHOLOGY | [address] [...] + | [facility] | [address] [facility] | [place] [address] | | | PATHOLOGY | [address] | | | + + + + + | [facility] | [address] [facility] | [place] [address] | | | PATHOLOGY | [address] [...] [facility] | [address] | [place] [address] | | | PATHOLOGY | [address] | | | + + + + + | [facility] | [address] | [place] [address] | | | PATHOLOGY | [address] [...] + | [facility] | [address] [facility] | [place] [address] | | | PATHOLOGY | [address] | | | + + + + + | [facility] | [address] [facility] | [place] [address] | | | PATHOLOGY | [address] [...] Recio, | | | | | | TAX ATTORNEY | | | | + + + [...] [facility] | [address] | [place], [place] | | | THERAPY | [facility] | [address] | | + + + + + | [facility] | [address] | [place], [place] | | | THERAPY | [facility] | [address] | | + + + + + [...] | THERAPY | | | | Hemal, TAX ATTORNEY | | | | + + + [...] [facility] | [address] | [place], [place] | | | THERAPY | [address] | [address] | | + + + + + | [facility] | [address] | [place], [place] | | | THERAPY | [address] [facility] | [address] | | + + + + + [...] Recio, | | | | | | TAX ATTORNEY | | | | + + + [...] | [facility] | [address] [facility] | [place], [place] | | | THERAPY | [facility] | [address] | | + + + + + | [facility] | [address] [facility] | [place], [place] | | | THERAPY | [facility] | [address] | | + + + + + [...] [facility] | [address] | [place], [place] | | | THERAPY | [address] | [address] | | + + + + + | [facility] | [address] | [place], [place] | | | THERAPY | [address] [facility] | [address] | | + + + + + [...] Performed At | + + + | [id number] | | | [id number] TALLY | | | [place] [id number] Date: | | | 09/06/2008 Attending Surgeon: | | | Tyrone Colby M.D. Oyster Washer(s): | | | Maximiliano Chisholm M.D. | [...] | | decubitus position with a hip per diem interpreter. The right hind quadrant and | | [...] Tyrone Alcantar | | | Sierra Colby. [facility] [id number] / [id number] / [id number] / | | | | | + + + + + | Procedure Note | + + | Tyrone Colby MD - 09/06/2008 12:00 AM [facility] [id number] | | [id number] CHAD Osei | | [id number] Date: 09/06/2008 Attending Surgeon: Tyrone | | Ortiz Colby M.D. Oyster Washer(s): Maximiliano Chisholm M.D. | | Linh Wiggins [...] decubitus position with a hip | | per diem interpreter. Theright hind quadrant and lower extremity were [...] is | | warranted. Tyrone Colby M.D. [facility] / [id number] / [id number] / [id number] /D: | | 09/06/2008T: 09/06/2008 | |anteriorly [...] Colby M.D. | | | | | |[facility] / | |[id number] / [id number] / [id number] / | | | | | | [...] + +---------+ +---+--------+---+ | morphine 5 mg/mL TOXICOLOGY TEACHER infusion | New Bag | 09/07/20 | [...] | | | | | 1955, Until [facility] 09/09/08 at 1941, | | | | [...]
--- OUTSIDE RECORDS SUMMARY | ~2020-03-28 | XMS | Encounter Summary ---
Demographics + + + | Address | [address] | | | [place] [address] | + + + | Home Phone [...] Providers + +------+ + | Care Solar Installation Foreman Name | Role | Phone | [...] as of this encounter Progress Notes Interface, Chemical Process Engineer In - 08/28/2006 3:05 AM PSTCLINIC DATE: [...] clinical evaluation. Benson Cooper M.D. / SALEEM [id number] / [id number] / [id number] / cc: Lloyd Garcia M.D. documented in this encounter Plan of Treatment Not on filedocumented as of this encounter Visit Diagnoses Not on filedocumented in this encounter"
--- OUTSIDE RECORDS SUMMARY | ~2020-03-28 | XMS | Encounter Summary ---
Demographics + + + | Address | [address] | | | [place] [address] | + + + | Home Phone [...] + +------+ + | Care Social Service Assistant Name | Role | Phone | [...] as of this encounter Progress Notes Interface, Coder In - 07/22/2006 3:18 AM PDTCLINIC DATE: [...] of the right knee. Lloyd Garcia M.D. professor of biblical studies, Orthopedics and Rehabilitation. BIRGIT / SALEEM [id number] / [id number] / [id number] / [id number] cc: JILLIAN TODD MD [address] [facility] [address]Ehmtwfdkgqpdcy signed by Interface, Coder In at 07/22/2006 3:1 8 AM PDTdocumented in this encounter Plan of Treatment Not on filedocumented as of this encounter Visit Diagnoses Not on filedocumented in this encounter"
--- OUTSIDE RECORDS SUMMARY | ~2020-03-28 | XMS | Encounter Summary ---
Demographics + + + | Address | [address] | | | [place] [address] | + + + | Home Phone [...] Team Providers + +------+ + | Care Company Secretary Name | Role | Phone | [...] | [facility] | MEGAN Reddy [address] | | | | | [address] | [address] | | | | | Loop Physician's | [place], [place] | | | | | [address], 3rd floor | [address] | | | | | [place], [place] | [phone] | | | | | [address] | | | | | | [phone] | | | +--------+ + + + [...]
--- OUTSIDE RECORDS SUMMARY | ~2020-03-28 | XMS | Encounter Summary ---
Demographics + + + | Address | [address] | | | [place] [address] | + + + | Home Phone [...] Providers + +------+ + | Care Auto Tire Recapper Name | Role | Phone | + [...] | due to | [place] | | | | | unspecified | [address] | [address] | | | | | device, | Phone: | Phone: | | | | | implant, and | [phone] | [phone] | | | | | graft | Fax: | Fax: | | | | | | [phone] | [phone] | +--------+--------+ + + + + Encounter [...] | | | | [address] | [place] [address] | internal joint | | | | Physician's | [phone] | prosthesis (HCC) | | | | Pavilion, 4th floor | | (Primary Dx) | | | | [place], [place] | | | | | | [address] | | | | | | [phone] | | | +--------+---------+ + + + [...] CLINIC FOLLOW UP Referrring Physician: TYRONE COLBY [facility] [address] [place] [address] Primary Care Physician: [address] [address] Ms. Galdamez presents to [facility]ious [facility] Clinic [...] procedure. Indications : Staphylococcus Aureus Joint Infection [place]-3 Fatty Acids-Vitamin E (FISH OIL) 1,000 mg [...] above discussion. ALBINO TERESA MD INFECTIOUS DISEASES [address] [place] [address] Mailcode: L[address] [address] documented in this e ncounter [...]
--- OUTSIDE RECORDS SUMMARY | ~2020-03-28 | XMS | Encounter Summary ---
Demographics + + + | Address | [address] | | | [place] [address] | + + + | Home Phone [...] Team Providers + +------+ + | Care Abatement Worker Name | Role | Phone | [...] | | | | Mailcode: PV430 | [place], [place] | | | | | Physician's [facility] | [address] | | | | | [place], [place] | [phone] | | | | | [address] | | | | | | [phone] | | | +--------+ + + + [...]
--- OUTSIDE RECORDS SUMMARY | ~2020-03-28 | XMS | Encounter Summary ---
Demographics + + + | Address | [address] | | | [place] [address] | + + + | Home Phone [...] Team Providers + +------+ + | Care Kindergarten Paraprofessional Name | Role | Phone | + [...] of this encounter Progress Notes Interface, Health Information Systems Technician In - 06/11/2006 3:03 AM PDTCLINIC DATE: [...] clinic today. It was done in a [place] in [facility] on December 08, 2001. There is [...] on an as-needed basis. Vince Krishna M.D. [facility] / [id number] / [id number] / [id number] / cc: Ninfa Guillen M.D. [address] [place] [address] Kalyan Wu M.D. [facility] Orthopedics and Rehabilitation Lloyd Garcia M.D. [facility] Orthopedics and RehabiliationElectronically signed by Interface, Health Information Systems Technician In at 0 06/11/2006 3:03 AM PDTdocumented in this encounter Plan of Treatment Not on filedocumented as of this encounter Visit Diagnoses Not on filedocumented in this encounter"
--- OUTSIDE RECORDS SUMMARY | ~2020-03-28 | XMS | Encounter Summary ---
Demographics + + + | Address | [address] | | | [place] [address] | + + + | Home Phone [...] Team Providers + +------+ + | Care Real Estate Utilization Officer Name | Role | Phone | [...] as of this encounter Progress Notes Interface, Outcomes Specialist In - 04/28/2005 5:10 PM PDTClinic [...] has been at her friend's house in [facility] and has been receiving IV antibiotics [...] Benson Boone M.D. Lloyd Garcia M.D. / [id number] / [id number] / [id number] / [id number] Tdocumented in this encounter Plan of Treatment Not on filedocumented as of this encounter Visit Diagnoses Not on filedocumented in this encounter"
--- OUTSIDE RECORDS SUMMARY | ~2020-03-28 | XMS | Encounter Summary ---
Demographics + + + | Address | [address] | | | [place] [address] | + + + | Home Phone [...] Team Providers + +------+ + | Care Finishing Supervisor Name | Role | Phone | [...] | | | | | [place], [facility] Floor | | | | | | [place], [place] | | | | | | [address] | | | | | | [phone] | | | +--------+ + + + [...] X-RAY HIP 2 | Med Rec No: [id number] | | | | | VIEWS | Name: | | | | | RIGHT W/ | SHELBY GALDAMEZ C | | | | | PELVIS 1 | Birthday: 1960 | | | | | VIEW | Sex: F | | | | | | Alias:Patient Location: | | | | | | [id number]: Outpatient | | | | | | [...] # | | | | | | [id number]:PELVIS | | | | | | ONE [...]
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
--- OUTSIDE RECORDS SUMMARY | ~2020-03-28 | XMS | Encounter Summary ---
Demographics + + + | Address | [address] | | | [place] [address] | + + + | Home Phone [...] Providers + +------+ + | Care Restaurant Crew Person Name | Role | Phone | [...] | | | | Mailcode: PV430 | [place], [place] | | | | | [facility] | [address] | | | | | [place], [place] | [phone] | | | | | [address] | | | | | | [phone] | | | +--------+ + + + [...]
--- OUTSIDE RECORDS SUMMARY | ~2020-03-28 | XMS | Encounter Summary ---
Demographics + + + | Address | [address] | | | [place] [address] | + + + | Home Phone [...] Team Providers + +------+ + | Care Clerical Grader Name | Role | Phone | + +------+ + PCP | Unavailable | + +------+ + Encounter Details +--------+ + + + + | Date | Type | Department | Care Team | Description | +--------+ + + + + | 09/18/ | [facility] | [facility] | Helio Ahn | | | 2005 | Encounter | MED CTR SLEEP | MD [place] [address] | | | | | CENTER [address] | [address] [facility] | | | | | [place] | [place] [address] | | | | | [address] | [phone] | | | | | [phone] | | | +--------+ + + + [...] [place] | | | | | | [address] | | | | | | | | +--------+---------+ + + + documented as of this encounter Visit Diagnoses Not on filedocumented in this encounter"
--- OUTSIDE RECORDS SUMMARY | ~2020-03-28 | XMS | Encounter Summary ---
Demographics + + + | Address | [address] | | | [place] [address] | + + + | Home Phone | | + + + | Preferred Language | Unknown | + + + | Marital Status | | + + + | Evangelical Affiliation | 1076 | + + + [...] Providers + +------+ + | Care Hydraulic Punch Press Operator Name | Role | Phone | + +------+ + | Eric Krishna MD | PCP | | + +------+ + Encounter Details +--------+ + + + + | Date | Type | Department | Care Team | Description | +--------+ + + + + | 12/04/ | Hospital | [facility] | Conversion | Decreased range of | | 2018 | Encounter | CENTER OPI XRAY | Transaction, | motion of hip; Hip | | | | [address] | Provider Unknown | pain, chronic, left | | | | [address] [place], [place] | [phone] | | | | | [address] | | | | | | [phone] | Carmine Frost S, | | | | | | BUSINESS OFFICE COORDINATOR [address] [place] [address] | | | | | | [address] [place], | | | | | | [place] [address] | | | | | | [phone] | | | | | | | [...] [place] | | | | | | [address] | | | | | | | [...]
--- OUTSIDE RECORDS SUMMARY | ~2020-03-28 | XMS | Encounter Summary ---
Demographics + + + | Address | [address] | | | [place] [address] | + + + | Home Phone [...] Providers + +------+ + | Care Bench Worker Apprentice Name | Role | Phone | [...] Rd | | | | | | [place], [place] | | | | | | [address] | | | +--------+ + + + [...]
--- OUTSIDE RECORDS SUMMARY | ~2020-03-28 | XMS | Encounter Summary ---
Demographics + + + | Address | [address] | | | [place] [address] | + + + | Home Phone [...] Team Providers + +------+ + | Care President + Publisher Name | Role | Phone | [...] | | [address] | Roxann Ayala [place], | | | | | Mailcode: PV430 | [place] [address] | | | | | [facility] | | | | | | [place] | | | | | | [address] | | | | | | [phone] | | | +--------+ + + + [...]
--- OUTSIDE RECORDS SUMMARY | ~2020-03-28 | XMS | Encounter Summary ---
Demographics + + + | Address | [address] | | | [place] [address] | + + + | Home Phone [...] Providers + +------+ + | Care Hospice Rn Name | Role | Phone | + +------+ + | Jaimie Monreal MD | PCP | | + +------+ + Encounter Details +--------+ + + + + | Date | Type | Department | Care Team | Description | +--------+ + + + + | 07/08/ | [facility] | [facility] | Jasper Medrano, | Left hip pain | | 2019 | Encounter | [address] | [address] | | | | | [address] | [place] | | | | | [place], [place] | [address] | | | | | [address] | | | | | | [phone] | | | +--------+ + + + [...] [place] | | | | | | [address] | | | | | | | [...] | | subsidence. However this is a gtjay-oy-qreiv prosthesis. Did not | | | seem to be any significant ostial lysis around either of the | | | components. There is evidence in the femur of previously removed | | | hardware. 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 The left hip shows severe gwlb-wj-pzkv | | | arthritis without any evidence [...]
--- OUTSIDE RECORDS SUMMARY | ~2020-03-28 | XMS | Encounter Summary ---
Demographics + + + | Address | [address] | | | [place] [address] | + + + | Home Phone [...] Team Providers + +------+ + | Care Tunneling Machine Operator Name | Role | Phone | + +------+ + | Travis Mcginnis MD | PCP | | + +------+ + Encounter Details +--------+ + + + + | Date | Type | Department | Care Team | Description | +--------+ + + + + | 02/20/ | Corduroy Brusher Operator | Orthopaedics at | Kalyan Arias MD | Hip replacement | | 2009 | | [facility] [address] | [address] | (Primary Dx) | | | | [address] | [facility] | | | | | Mailcode: PV430 | [facility] [place] | | | | | [facility] | [address] | | | | | [place], [place] | [phone] | | | | | [address] | | | | | | [phone] | | | +--------+ + + + [...]
--- OUTSIDE RECORDS SUMMARY | ~2020-03-28 | XMS | Encounter Summary ---
Demographics + + + | Address | [address] | | | [place] [address] | + + + | Home Phone [...] Providers + +------+ + | Care Print Washer Name | Role | Phone | [...] as of this encounter Progress Notes Interface, Admitting Counselor In - 04/28/2005 6:17 PM PDTClinic Date: [...] presence of her friend and my physician ortho assistant and resident here in the Orthopedic [...] as soon as possible. Lloyd Garcia M.D. Assistant Purchasing Manager of Orthopedics and Rehabilitation / [id number] / [id number] / [id number] / [id number] Tdocumented in this encounter Plan of Treatment Not on filedocumented as of this encounter Visit Diagnoses Not on filedocumented in this encounter
--- OUTSIDE RECORDS SUMMARY | ~2020-03-28 | XMS | Encounter Summary ---
Demographics + + + | Address | [address] | | | [place] [address] | + + + | Home Phone [...] Providers + +------+ + | Care Cloth Winder Name | Role | Phone | [...] | Head and Neck | MEGAN Reddy [address] [facility] | | | | | Surgery Services at | [facility] | | | | | [facility] [address] | [place], [place] | | | | | [address] | [address] | | | | | Physician's | [phone] | | | | | Pav[facility], [facility] floor | | | | | | [place], [place] | | | | | | [address] | | | | | | [phone] | | | +--------+ + + + [...]
--- OUTSIDE RECORDS SUMMARY | ~2020-03-28 | XMS | Encounter Summary ---
Demographics + + + | Address | [address] | | | [place] [address] | + + + | Home Phone [...] Providers + +------+ + | Care Cloth Finishing Range Operator Name | Role | Phone | [...] of this encounter Progress Notes Interface, Shipping Services Sales Representative In - 04/28/2005 5:10 PM PDT Referred [...]
--- OUTSIDE RECORDS SUMMARY | ~2020-03-28 | XMS | Encounter Summary ---
Demographics + + + | Address | [address] | | | [place] [address] | + + + | Home Phone [...] Team Providers + +------+ + | Care Lithography Contact Worker Name | Role | Phone | [...] | | | | | | | [address] | | | | | | | [address] | | | | | | | Jamie 2SE/UHN85 | | | | | | | Rose | | | | | | | [place]rence | | | | | | | (MNP/OLD [facility]) | | | | | | | [place], | | | | | | | [place] [address] | +--------+--------+ + + + + Encounter Details +--------+ + + + + | Date | Type | Department | Care Team | Description | +--------+ + + + + | 09/06/ | Hospital | [facility] [address] | Tyrone Colby MD | | | 2007 - | Encounter | [address] [facility] [address] | [address] [facility] | | | | | 2SE/UHN85 | [facility] | | | 09/09/ | | Rose [address]campo | [place], [place] | | | 2007 | | (MNP/OLD [facility]) | [address] | | | | | [place], [place] | [phone] | | | | | [address] | | | +--------+ + + + [...] #3. Radiation oncology team was consulted and [facility] administered a single radiation treatment as [...] right hip. 0. Needs continued PT/OT at [facility] 1. You may remove dressing 3 days after your surgery and OK for shower thereafter as long a s the incision is not draining. Sponge bath until dressings off. No soaking in tub, pool, et c. If there is drainage after [address] new guaze on the incision and call the Orthopaedi c clinic [phone]. 2. Continue to take Aspirin 325mg twice a day for a total of 6 weeks. Stop if you have stom ach upset or blood in your stool. Let your surgeon know if you have had GI bleeding in the p ast after taking Aspirin or NSAID's. 3. DO NOT let anyone start you on Antibiotics if they suspect your wound is infected. Call infection control coordinator [facility] Orthopaedist first. Call [phone] for daytime and weekdays, or [phone] for nights and weekends. If you have [...] Dr. Colby in 2 wks. Please call [phone] now to confirm appointment. Follow Up Tests: (Tests at [facility] must be entered into [facility]) none Condition On Discharge: Good Discharge Medications: [...] incision and call the Orthopaedi c clinic [phone]. 2. Continue to take Aspirin 325mg twice a day for a total of 6 weeks. Stop if you have stom ach upset or blood in your stool. Let your surgeon know if you have had GI bleeding in the p ast after taking Aspirin or NSAID's. 3. DO NOT let anyone start you on Antibiotics if they suspect your wound is infected. Call infection control coordinator [facility] Orthopaedist first. Call [phone] for daytime and weekdays, or [phone] for nights and weekends. If you have [...] Dr. Colby in 2 wks. Please call [phone] now to confirm appointment. Follow Up Tests: (Tests at [facility] must be [facility] into [facility]) none Condition On Discharge: Good [...] Faculty - 8 12:00 AM Shelby Thompson [id number] [facility] REC NUMBER: [id number] NAME : Shelby Galdamez DATE : 1960 Admit Date: 09/06/2008 Discharge Date: 09/09/2008 PHYSICIAN'S REQUEST FOR HOME HEALTH SERVICES Relevant History: Location to receive services if other than home: Allergies: Height: Weight: Ordering Physician: [address] [facility] [address], [place] [address] Physician to follow for ongoing home health orders: PCP Name: PCP Phone: Discharge Need(s): 1. Fdc Facility Discharge Vendor: [facility] Discharge Suggested First Visit/Delivery Date: Discharge Service/Equipment: 2. Transportation Discharge Vendor: Medicaid - [place] Discharge Suggested First Visit/Delivery Date: Discharge Service/Equipment: stretcher 12:30pm Exec. Creative Director: Tr Rosales - 09/08/2008 2:22 PM PSTRADIATION [...] as able . Tasha Harding OTR//L Pager [phone] Tyrone Haney - 2007 7:55 AM PST [...] and plan of care. TYRONE COLBY MD [facility] [address] 2se/uhn[address] [place] [address] Taz Rand - 08/30 5:50 AM PST [...] DEPARTMENT OF | [address] | [place] [address] | | | PATHOLOGY | [address] | | | + + + + + | [facility] DEPARTMENT OF | [address] | [place] [address] | | | PATHOLOGY | [address] [...] | [facility] DEPARTMENT OF | [address] | [place] [address] | | | PATHOLOGY | [address] | | | + + + + + | [facility] DEPARTMENT OF | [address] | [place] [address] | | | PATHOLOGY | [address] [...] | [facility] | [address] [facility] | [place] [address] | | | PATHOLOGY | [address] | | | + + + + + | [facility] | [address] [facility] | [place] [address] | | | PATHOLOGY | [address] [...] | [facility] DEPARTMENT OF | [address] [facility] | [place] [address] | | | PATHOLOGY | [address] | | | + + + + + | [facility] DEPARTMENT OF | [address] [facility] | [place] [address] | | | PATHOLOGY | [address] [...] | [facility] DEPARTMENT OF | [address] | [place] [address] | | | PATHOLOGY | [address] | | | + + + + + | [facility] DEPARTMENT OF | [address] | [place] [address] | | | PATHOLOGY | [address] [...] | | THERAPY | | | | SCIENTIFIC PROGRAMMER | | | | + + + + + + + + | Specimen | + + | | + + + + + | Narrative | Performed At | + + + | Ordered by TYRONE OCLBY | [facility] | | | RESPIRATORY | | | THERAPY | + + + + + + + + | Performing | Address | City/State/Zipcode | Phone Number | | Organization | | | | + + + + + | [facility] RES[facility] | [address] | [place], [place] | | | THERAPY | [address] | [address] | | + + + + + | [facility] | [address] | [place], [place] | | | THERAPY | [address] | [address] | | + + + + + [...] Lynn, | | | | | | SCIENTIFIC PROGRAMMER | | | | + + + [...] [facility] | [address] | [place], [place] | | | THERAPY | [address] | [address] | | + + + + + | [facility] | [address] | [place], [place] | | | THERAPY | [address] | [address] | | + + + + + [...] | [facility] DEPARTMENT OF | [address] [facility] | [place] [address] | | | PATHOLOGY | [address] | | | + + + + + | [facility] DEPARTMENT OF | [address] [facility] | [place] [address] | | | PATHOLOGY | [address] [...] | [facility] | [address] [facility] | [place] [address] | | | PATHOLOGY | [address] | | | + + + + + | [facility] | [address] [facility] | [place] [address] | | | PATHOLOGY | [address] [...] + + + + | [facility] | [address] | [place] [address] | | | PATHOLOGY | [address] | | | + + + + + | [facility] | [address] | [place] [address] | | | PATHOLOGY | [address] [...] | [facility] | [address] [facility] | [place] [address] | | | PATHOLOGY | [address] | | | + + + + + | [facility] | [address] [facility] | [place] [address] | | | PATHOLOGY | [address] [...] Recio, | | | | | | SCIENTIFIC PROGRAMMER | | | | + + + [...] [facility] | [address] | [place], [place] | | | THERAPY | [facility] | [address] | | + + + + + | [facility] | [address] | [place], [place] | | | THERAPY | [facility] | [address] | | + + + + + [...] | THERAPY | | | | Hemal, SCIENTIFIC PROGRAMMER | | | | + + + [...] [facility] | [address] | [place], [place] | | | THERAPY | [address] | [address] | | + + + + + | [facility] | [address] | [place], [place] | | | THERAPY | [address] [facility] | [address] | | + + + + + [...] Recio, | | | | | | SCIENTIFIC PROGRAMMER | | | | + + + [...] + + | [facility] | [address] [facility] | [place], [place] | | | THERAPY | [facility] | [address] | | + + + + + | [facility] | [address] [facility] | [place], [place] | | | THERAPY | [facility] | [address] | | + + + + + [...] [facility] | [address] | [place], [place] | | | THERAPY | [address] | [address] | | + + + + + | [facility] | [address] | [place], [place] | | | THERAPY | [address] [facility] | [address] | | + + + + + [...] / | | | | | | RLOY MOSS | | | | + + [...] Performed At | + + + | [id number] | | | [id number] TALLY | | | [place] [id number] Date: | | | 09/06/2008 Attending Surgeon: | | | Tyrone Colby M.D. Spray Foam Installer(s): | | | Maximiliano Chisholm M.D. | [...] | | decubitus position with a hip steel hanger. The right hind quadrant and | | [...] Tyrone Alcantar | | | Sierra Colby. [facility] [id number] / [id number] / [id number] / | | | | | + + + + + | Procedure Note | + + | Tyrone Colby MD - 09/06/2008 12:00 AM [facility] [id number] | | [id number] CHAD Osei | | [id number] Date: 09/06/2008 Attending Surgeon: Tyrone | | Ortiz Colby M.D. Spray Foam Installer(s): Maximiliano Chisholm M.D. | | Linh Wiggins [...] decubitus position with a hip | | steel hanger. Theright hind quadrant and lower extremity were [...] is | | warranted. Tyrone Colby M.D. [facility] / [id number] / [id number] / [id number] /D: | | 09/06/2008T: 09/06/2008 | |anteriorly [...] Colby M.D. | | | | | |[facility] / | |[id number] / [id number] / [id number] / | | | | | | [...] + +---------+ +---+--------+---+ | morphine 5 mg/mL COOKER PROCESS CHEESE infusion | New Bag | 09/07/20 | [...] | | | | | 1955, Until [facility] 09/09/08 at 1941, | | | [...]
--- OUTSIDE RECORDS SUMMARY | ~2020-03-28 | XMS | Encounter Summary ---
Demographics + + + | Address | [address] | | | [place] [address] | + + + | Home Phone [...] Providers + +------+ + | Care Associate Software Developer Name | Role | Phone [...] | Diseases at [facility] | MEGAN Reddy [address] | | | | | [address] | [address] | | | | | Loop Physician's | [place], [place] | | | | | [address], 3rd floor | [address] | | | | | [place], [place] | [phone] | | | | | [address] | | | | | | [phone] | | | +--------+ + + + [...]
--- OUTSIDE RECORDS SUMMARY | ~2020-03-28 | XMS | Encounter Summary ---
Demographics + + + | Address | [address] | | | [place] [address] | + + + | Home Phone [...] Team Providers + +------+ + | Care Pusher Runner Name | Role | Phone | + [...] Pavilion | | | | | | [place], [place] | | | | | | [address] | | | | | | [phone] | | | +--------+ + + + [...] | AB, IGM | Test performed by [facility] | | | | | | [facility] | | | | | | Cued. | | | | + + + + + + + + | Specimen | + + | | + + + + + + + | Performing | Address | City/State/Zipcode | Phone Number | | Organization | | | | + + + + + | [facility] | [address] | [place] [address] | | | LABORATORY | | | [...] by | | | | | | [facility] | | | | | | [facility]. | | | | + + + + + + + + | Specimen | + + | | + + + + + + + | Performing | Address | City/State/Zipcode | Phone Number | | Organization | | | | + + + + + | [facility] | [address] | [place] [address] | | | LABORATORY | | | [...] | + + + + + | [facility] | [address] | [place] [address] | | | LABORATORY | | | [...] | AB TOTAL | Test performed by [facility] | | | | | | [facility] | | | | [...] | + + + + + | [facility] | [address] | [place] [address] | | | LABORATORY | | | [...] MENTAL HEALTH | [address] | [place] [address] | | | PATHOLOGY | [address] | | | + + + + + | [facility] | [address] | [place] [address] | | | PATHOLOGY | [address] [...] DEPARTMENT OF | [address] | [place] [address] | | | PATHOLOGY | [address] | | | + + + + + | [place] DEPARTMENT OF | [address] | [place] [address] | | | PATHOLOGY | [address] [...] | [facility] | [facility] | [place] [address] | | | PATHOLOGY | [address] | | | + + + + + | [facility] | [facility] | [place] [address] | | | PATHOLOGY | [address] [...] DEPARTMENT OF | [address] | [place] [address] | | | PATHOLOGY | [address] | | | + + + + + | [place] DEPARTMENT OF | [address] | [place] [address] | | | PATHOLOGY | [address] [...] DEPARTMENT OF | [address] | [place] [address] | | | PATHOLOGY | [address] | | | + + + + + | [facility] DEPARTMENT OF | [address] | [place] [address] | | | PATHOLOGY | [address] [...] DEPARTMENT OF | [address] | [place] [address] | | | PATHOLOGY | [address] | | | + + + + + | [facility] | [address] | [place] [address] | | | PATHOLOGY | [address] [...] | + + + + + | [facility] | [address] | [place] [address] | | | LABORATORY | | | [...] DEPARTMENT OF | [address] | [place] [address] | | | PATHOLOGY | [address] | | | + + + + + | [place] DEPARTMENT OF | [address] | [place] [address] | | | PATHOLOGY | [address] [...] [facility] DEPARTMENT OF | [address] | [place] [address] | | | PATHOLOGY | [address] | | | + + + + + | [place] DEPARTMENT OF | [address] | [place] [address] | | | PATHOLOGY | [address] [...] + + + + | PRODUCT | [id number] | | [facility] | | | UNIT [...] [facility] | [address] | [place] [address] | | | PATHOLOGY | [address] | | | + + + + + | [facility] | [address] [place] [address] | [place] [address] | | | PATHOLOGY | [address] [...] + + + + | PRODUCT | [id number] | | [facility] | | | UNIT [...] | [facility] DEPARTMENT OF | [address] | [place] [address] | | | PATHOLOGY | [address] | | | + + + + + | [facility] DEPARTMENT OF | [address] | [place] [address] | | | PATHOLOGY | [address] [...] DEPARTMENT OF | [address] | [place] [address] | | | PATHOLOGY | [address] | | | + + + + + | [facility] | [address] | [place] [address] | | | PATHOLOGY | [address] [...] | | | | | available on [employer] and | | | | | | [...] | + + + + + | [facility] | [address] | [place] [address] | | | LAB-MICRO | | | [...] + + + + + | [facility] | [address] | [place] [address] | | | LAB-MICRO | | | [...] | + + + + + | [facility] | [address] | [place] [address] | | | LAB-MICRO | | | | + + + + + documented in this encounter Visit Diagnoses Not on filedocumented in this encounter"
--- OUTSIDE RECORDS SUMMARY | ~2020-03-28 | XMS | Encounter Summary ---
Demographics + + + | Address | [address] | | | [place] [address] | + + + | Home Phone [...] Team Providers + +------+ + | Care Insulation Sprayer Name | Role | Phone | [...] Visit | Medicine Clinic at | [facility] | Pre-Operative | | | | MPV 4th Floor Day | | Examination (Primary | | | | Stay [address] | | Dx) | | | | [address] | | | | | | Mailcode: [id number] | | | | | | Rose Ocampo | | | | | | [address] [place], [place] | | | | | | [address] | | | | | | [phone] | | | +--------+---------+ + + + [...] + documented in this encounter Progress Notes Helean Alvarenga - 08/16/2008 5:57 PM PSTSee Scanned H&P. documented in this e ncounter Plan of Treatment + + +--------+ + + | Name | Type | Priori | Associated Diagnoses | Order Schedule | | | | ty | | | + + +--------+ + + | MS COLLECTION VENOUS | Procedures | Routin | [...] + + + + | PRODUCT | [id number] | | [facility] | | | UNIT [...] DEPARTMENT OF | [address] | [place] [address] | | | PATHOLOGY | [address] | | | + + + + + | [facility] DEPARTMENT OF | [address] | [place] [address] | | | PATHOLOGY | [address] [...] Performed At | + + + | [id number] Estimated GFR > 60 mL/min/1.73 sq m if non- | [facility] | | [place] [id number] Estimated GFR > 60 mL/min/1.73 sq m [...] [facility] | [facility] | [place] [address] | | | PATHOLOGY | [address] | | | + + + + + | [facility] | [address] [place] [address] | [place] [address] | | | PATHOLOGY | [address] [...] | + + + + + | [facility] DEPARTMENT OF | [address] | [place] [address] | | | PATHOLOGY | [address] | | | + + + + + | [facility] DEPARTMENT OF | [address] | [place] [address] | | | PATHOLOGY | [address] [...] | + + + + + | [facility] DEPARTMENT OF | [address] | [place] [address] | | | PATHOLOGY | [address] | | | + + + + + | [facility] DEPARTMENT OF | [address] | [place] [address] | | | PATHOLOGY | [address] [...] view image for the detailed interpretation from [employer] results. | CARDIOLOGY | | | | + + + + + + + + | Performing | Address | City/State/Zipcode | Phone Number | | Organization | | | | + + + + + | [facility] DEPT OF | [address] | [place], [place] | | | CARDIOLOGY | [facility] | [address] | | + + + + + | [facility] OF | [address] | [place], [place] | | | CARDIOLOGY | [address] | [address] | | + + + + + documented in this encounter Visit Diagnoses + + | Diagnosis | + + | Other specified pre-operative examination - Primary | + + documented in this encounter
--- OUTSIDE RECORDS SUMMARY | ~2020-03-28 | XMS | Encounter Summary ---
Demographics + + + | Address | [address] | | | [place] [address] | + + + | Home Phone [...] Team Providers + +------+ + | Care Tunnel Kiln Operator Name | Role | Phone | [...] | | | | [place] | [phone] | | | | | [address] | | | | | | [phone] | | | +--------+ + + + [...] [place] | | | | | | [address] | | | | | | | [...]
--- OUTSIDE RECORDS SUMMARY | ~2020-03-28 | XMS | Encounter Summary ---
Demographics + + + | Address | [address] | | | [place] [address] | + + + | Home Phone | | + + + | Preferred Language | Unknown | + + + | Marital Status | | + + + | Adventist Affiliation | 1076 | + + + | Race | Unknown | + + + | Ethnic Group | Unknown | + + + Author + + + | Author | [facility] | | | and [place] | + + + | Organization | [facility] | | | [...] Team Providers + +------+ + | Care Administrator Health Care Facility Name | Role | Phone | + +------+ + PCP | Unavailable | + +------+ + Encounter Details +--------+ + + + + | Date | Type | Department | Care Team | Description | +--------+ + + + + | 12/07/ | [facility] | [facility] | Helio Ahn | | | 2002 | Encounter | MED CTR SLEEP | MD Candie [address] | | | | | CENTER [address] | [address] | | | | | [place] | [place] [address] | | | | | [address] | [phone] | | | | | [phone] | | | +--------+ + + + [...] [place] | | | | | | [address] | | | | | | | | +--------+---------+ + + + documented as of this encounter Visit Diagnoses Not on filedocumented in this encounter"
--- OUTSIDE RECORDS SUMMARY | ~2020-03-28 | XMS | Encounter Summary ---
Demographics + + + | Address | [address] | | | [place] [address] | + + + | Home Phone [...] Team Providers + +------+ + | Care Training Consultant Name | Role | Phone | [...] | | | | JOSE | [address] [facility] | | | | | | MEDICAL | [facility] | | | | | | CLINIC [address] | [address] [place], | | | | | | [address] | [place] | | | | | | [place], [place] | [address] | | | | | | [address] | Phone: | | | | | | | [phone] | | | | | | | Fax: | | | | | | | [phone] | +--------+--------+ + + + + Encounter [...] | | | | Mailcode: [id number] | [place], [place] | Calcification; Back | | | | [facility]ilion | [address] | Pain; Hip Pain | | | | [place], [place] | [phone] | | | | | [address] | | | | | | [phone] | | | +--------+---------+ + + + [...] and plan of care. KALYAN COLBY MD [facility]ATION [address] [facility] [place] [phone] aRaul kasper - 8 12:04 PM PDT [...] w ound vac placement were undertaken with kosher inspector antibiotics until the infection cleared. She now [...]
--- OUTSIDE RECORDS SUMMARY | ~2020-03-28 | XMS | Encounter Summary ---
Demographics + + + | Address | [address] | | | [place] [address] | + + + | Home Phone [...] Team Providers + +------+ + | Care Electrodynamicist Name | Role | Phone | + +------+ + | Travis Mcginnis MD | PCP | | + +------+ + Encounter Details +--------+ + + + + | Date | Type | Department | Care Team | Description | +--------+ + + + + | 02/20/ | [facility] | Orthopaedics at | Kalyan Arias MD | Hip replacement | | 2009 | | [address] | [address] | (Primary Dx) | | | | [address] | [facility] | | | | | Mailcode: PV430 | [facility] [place] | | | | | [facility] | [address] | | | | | [place], [place] | [phone] | | | | | [address] | | | | | | [phone] | | | +--------+ + + + [...]
--- OUTSIDE RECORDS SUMMARY | ~2020-03-28 | XMS | Encounter Summary ---
Demographics + + + | Address | [address] | | | [place] [address] | + + + | Home Phone [...] [place] | | | | | | [facility] and | | | | | | Counseling [address] | | | | | | [address] [place], | | | | | | [place] [address] | | | | | | [phone] | | | | | | | [...] | | | | | | 09/25/2003 [id number] | | | | | | hours [...] + + + | [facility] | [address] | [place] [address] | | | LABORATORY | | | [...] + + + + + | [facility] DEPARTMENT | [address] [facility] | [place] [address] | | | PATHOLOGY | [address] | | | + + + + + | [place] DEPARTMENT OF | [address] [facility] | [place] [address] | | | PATHOLOGY | [address] [...] | [facility] | [address] [facility] | [place] [address] | | | PATHOLOGY | [address] | | | + + + + + | [facility] | [address] [facility] | [place] [address] | | | PATHOLOGY | [address] [...] + + + + | [facility] | [address] | [place] [address] | | | PATHOLOGY | [address] | | | + + + + + | [facility] | [address] | [place] [address] | | | PATHOLOGY | [address] | | | + + + + + documented in this encounter Visit Diagnoses Not on filedocumented in this encounter"
--- OUTSIDE RECORDS SUMMARY | ~2020-03-28 | XMS | Encounter Summary ---
Demographics + + + | Address | [address] | | | [place] [address] | + + + | Home Phone [...] Providers + +------+ + | Care Cargo Services Coordinator Name | Role | Phone | + +------+ + | Marta Jenkins MARINE MAMMAL TRAINER | PCP | | + +------+ + [...] | Jamie Mailcode: [id number] [place], | | | | | [place], [place] | [place] [address] | | | | | [address] | | | | | | [phone] | | | +--------+ + + + [...]
--- OUTSIDE RECORDS SUMMARY | ~2020-03-28 | XMS | Encounter Summary ---
Demographics + + + | Address | [address] | | | [place] [address] | + + + | Home Phone [...] Providers + +------+ + | Care Automotive Diagnostic Technician Name | Role | Phone | [...] as of this encounter Progress Notes Interface, Class B Truck Driver In - 02/27/2006 3:05 AM PDTClinic Date: [...] M.D. Lloyd Garcia M.D. RT / HS [id number] / [id number] / [id number] / [id number] Watt, Class B Truck Driver In - 02/27/2006 3:05 AM PDTClinic Date: [...] is any deep infection. Lloyd Garcia M.D. Building Rental Manager Orthopedics and Rehabilitation Jackelyn A [phone] cc: Ninfa Barrientos MD [address] [place] [id number] signed by Interface, Class B Truck Driver In at 6 3:05 AM PDTdocumented in this encounter Plan of Treatment Not on filedocumented as of this encounter Visit Diagnoses Not on filedocumented in this encounter"
--- OUTSIDE RECORDS SUMMARY | ~2020-03-28 | XMS | Encounter Summary ---
Demographics + + + | Address | [address] | | | [place] [address] | + + + | Home Phone [...] Providers + +------+ + | Care Hvac Design Engineer Name | Role | Phone [...] as of this encounter Progress Notes Interface, Stunt Double In - 07/18/2006 3:04 AM PDTCLINIC DATE: [...] further treatment options. Brigette Lim P.A.-C / [id number] / [id number] / [id number] / Tdocumented in this encounter Plan of Treatment Not on filedocumented as of this encounter Visit Diagnoses Not on filedocumented in this encounter"
--- OUTSIDE RECORDS SUMMARY | ~2020-03-28 | XMS | Encounter Summary ---
Demographics + + + | Address | [address] | | | [place] [address] | + + + | Home Phone [...] Team Providers + +------+ + | Care Bakery Chef Name | Role | Phone | [...] as of this encounter Progress Notes Interface, Therapist Asst In - 06/11/2006 3:03 AM PDT [place] [facility] and [place] [address] [place], [place] [address] FAX Department of [facility]opaedics[facility] [id number] November 27, 2001 Kalyan Wu M.D. 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 She does work out at a gym under the direction of physical therapy in [place]. She would like to start some exercises [...] me. Sincerely yours, Vince Krishna M.D. [facility] / [id number] / [id number] / [id number] / [id number] cc: Lloyd Garcia M.D. Orthopedics PV 430 docume nted in this encounter Plan of Treatment Not on filedocumented as of this encounter Visit Diagnoses Not on filedocumented in this encounter
--- OUTSIDE RECORDS SUMMARY | ~2020-03-28 | XMS | Encounter Summary ---
Demographics + + + | Address | [address] | | | [place] [address] | + + + | Home Phone [...] Providers + +------+ + | Care Data Processing Equipment Repairer Name | Role | Phone | [...] Pavilion | | | | | | [place], [place] | | | | | | [address] | | | | | | [phone] | | | +--------+ + + + [...] near | | | | | | [id number] | | | | | | appearance [...]
--- OUTSIDE RECORDS SUMMARY | ~2020-03-28 | XMS | Encounter Summary ---
Demographics + + + | Address | [address] | | | [place] [address] | + + + | Home Phone [...] Providers + +------+ + | Care Deputy Sheriff/Investigator Name | Role | Phone | + [...]
--- OUTSIDE RECORDS SUMMARY | ~2020-03-28 | XMS | Encounter Summary ---
Demographics + + + | Address | [address] | | | [place] [address] | + + + | Home Phone [...] Providers + +------+ + | Care Regional Project Manager Name | Role | Phone | + +------+ + | Marta Jenkins GETTERER | PCP | | + +------+ + Encounter Details +--------+ + + + + | Date | Type | Department | Care Team | Description | +--------+ + + + + | 11/19/ | Documentati | Digestive Health | Wanda López ACNP | | | 2019 | on | Center at [facility] [address] | [address] | | | | | [address] | [address] [place], | | | | | Mailcode: [place] | [place] [address] | | | | | for Health and | [phone] | | | | | [facility], [facility] [address] | | | | | | [place], [place] | | | | | | [address] | | | | | | [phone] | | | +--------+ + + + [...]
--- OUTSIDE RECORDS SUMMARY | ~2020-03-28 | XMS | Encounter Summary ---
Demographics + + + | Address | [address] | | | [place] [address] | + + + | Home Phone [...] Team Providers + +------+ + | Care Cooler Worker Name | Role | Phone | [...] | | | | | or | [address] | Pavilion | | | | | localized, | | [place], [place] | | | | | pelvic | | [address] | | | | | region and | | Phone: | | | | | thigh | | [phone] | | | | | Intervertebr | | Fax: | | | | | al lumbar | | [phone] | | | | | disc | [...] Pavilion | | | | | | [place], [place] | | | | | | [address] | | | | | | [phone] | | | +--------+---------+ + + + [...] tenderness. Severe gluteus medius limp. Most recent [facility] Laboratory Studies: Normal C-reactive protein at 0.5 (02/10/04), normal [facility] te cell count at 9.4 & [...] this done around the time of the [place]up so she can enjoy shopp ing. [...] hip arthroplasty if needed. Lloyd Garcia M.D. [facility], Orthopedics and Rehabilitation documented in this encount [...]
--- OUTSIDE RECORDS SUMMARY | ~2020-03-28 | XMS | Encounter Summary ---
Demographics + + + | Address | [address] | | | [place] [address] | + + + | Home Phone [...] Providers + +------+ + | Care Tube Coverer Name | Role | Phone | [...] + + | 09/29/ | Office | [facility] | Xiang Sepulveda, | Other chronic pain | | 2019 | Visit | [facility] | DO [address] | (Primary Dx); | | | | DOLOROLOGY [address] | [place], [place] | Osteoarthritis of | | | | [address] | [id number] | lumbar spine, | | | | [place], [place] | | unspecified spinal | | | | [address] | | osteoarthritis | | | | [phone] | | complication status; | | | [...] | | | | | | adult ([facility]); | | | | | | Obesities, morbid | | | | | | ([facility]) | +--------+---------+ + + + Social [...] general activity) Total score: (Printable questionnaires in [place] ) Interpretation of Total Score: PEG scores are used to track changes over time. It should de crease after therapy has begun. Last 4 PEG Scores: No flowsheet data found. Opioid Risk Tool (ORT): Total Score Pulse: 94 BP: 160/88 SpO2: 98 % (From Chronic Pain tab; printable questionnaires in [place]) Interpretation of Total Score: 0 to 3 [...] ; Surg andrés: Rustam Schmid MD; Location: [facility] [place] Review of Systems Objective: [...] reviewed, listed controlled substances are consistent with [facility] prescriptions and patient reported use. [...] Patient states that he has seen a rubber liner and Has started a diet and every [...] imited to physical therapy, massage therapy, acupuncture, field care manager, along with jabari mmended psychological counseling, either privately, or in group sessions offered by private care individuals, community services, or zoroastrian organizations. Appropriate referrals were made at patient [...] and complications with the passage of time. USP use is also associated with depressions, and liver and renal failure. Finally, these medicines are associated with both physical and emotional addiction and can be difficult to stop after taking for only a few weeks. This document has been created using [employer] Voice Recognition software and [employer]. The entry has been reviewed for content and accuracy, but there may still exist "sound alike" interior assemblies installer word errors and/or unintended additions and deletions. [...] [place] | | | | | | [id number] | | | | | | | [...]
--- OUTSIDE RECORDS SUMMARY | ~2020-03-28 | XMS | Encounter Summary ---
Demographics + + + | Address | [address] | | | [place] [address] | + + + | Home Phone [...] Providers + +------+ + | Care Bill Collector Name | Role | Phone | [...] | | | | | (sacroiliac) | [facility], | | | | | joint | Rd | 10th Floor | | | | | inflammation | [place], [place] | [place], [place] | | | | | ([facility]) | [address] | [address] | | | | | Procedures | | Phone: | | | | | CT INJ | | [phone] | | | | | SACROILIAC | | Fax: | | | | | JOINT | | [phone] | | | | | W/NEEDLE | [...] | | | | | | Rd [place], | | | | | | | [place] | | | | | | | [address] | | | | | | | Phone: | | | | | | | [phone] | | | | | | | Fax: | | | | | | | [phone] | +--------+--------+ + + + + Encounter [...] | | | | Mailcode: [id number] | [place], [place] | ([facility]) | | | | [facility] | [address] | | | | | [place], [place] | [phone] | | | | | [address] | | | | | | [phone] | | | +--------+---------+ + + + [...] and plan of care. TYRONE COLBY MD [facility]ABIL[facility]ATION [address] [facility] Mailcode: [id number] [facility] [phone] esfaye Saenz PA-C - 02/20/2010 3:15 PM [...] None. | | | | | | Office Services Coordinator: Dr. Moss, | | | | | | residential installer. | | | | | | Respiratory Therapy Instructor: | | | | | | Sue [...] the | | | | | | technical support intern. Customer Account Specialist | | | | | | imaging [...]
--- OUTSIDE RECORDS SUMMARY | ~2020-03-28 | XMS | Encounter Summary ---
Demographics + + + | Address | [address] | | | [place] [address] | + + + | Home Phone [...] as of this encounter Progress Notes Interface, Mortgage Underwriter In - 06/19/2006 1:01 AM PDT [place] [facility] and [place] [address] [place], [place] [address] FAX Department of Orthopaedics, [facility] [id number] October 15, 2001 Lloyd Garcia M.D. Department of Orthopedics and Rehabilitation/[facility] [id number] RE: SHELBY GALDAMEZ MR #: [id number] DOS: 10/15/[address] Desai: Thank you [...] Sincerely, Kalyan Wu M.D. TE / HS [id number] / [id number] / [id number] / [id number] cc: Chan Krishna M.D. Department of Orthopedics and Rehabilitation/[facility] OP-31 Helio Noland M.D. [address] [place], [place] [id number] signed by Interface, Mortgage Underwriter In at 06/19/2006 1: 01 AM PDTdocumented in this encounter Plan of Treatment Not on filedocumented as of this encounter Visit Diagnoses Not on filedocumented in this encounter"
--- OUTSIDE RECORDS SUMMARY | ~2020-03-28 | XMS | Encounter Summary ---
Demographics + + + | Address | [address] | | | [place] [address] | + + + | Home Phone [...] Team Providers + +------+ + | Care Gin Feeder Name | Role | Phone | [...] | [facility] | MEGAN Reddy [address] | | | | | [address] | [address] | | | | | Loop Physician's | [place], [place] | | | | | [place]rence, 3rd floor | [address] | | | | | [place], [place] | [phone] | | | | | [address] | | | | | | [phone] | | | +--------+ + + + [...] + + + | [facility] | [address] | [place] [address] | | | CENTER - [place] | | | | + + + + + documented in this encounter Visit Diagnoses Not on filedocumented in this encounter"
--- OUTSIDE RECORDS SUMMARY | ~2020-03-28 | XMS | Encounter Summary ---
Demographics + + + | Address | [address] | | | [place] [address] | + + + | Home Phone [...] Team Providers + +------+ + | Care Teleprinter Installer Name | Role | Phone | [...] + + | 07/29/ | Office | [facility] | Xiang Sepulveda, | ABDOMINAL | | 2019 | Visit | [facility] | DO [address] | PAIN-GENERALIZED | | | | DOLOROLOGY [address] | [facility] [place] | (Primary Dx); Other | | | | [address] | [address] | chronic pain; DDD | | | | [place], [place] | | (degenerative disc | | | | [address] | | disease), lumbar; | | | | [phone] | | Facet arthropathy, | | | [...] general activity) Total score: (Printable questionnaires in Kinyarwanda ) Interpretation of Total Score: PEG scores are used to track changes over time. It should de crease after therapy has begun. Last 4 PEG Scores: No flowsheet data found. Opioid Risk Tool (ORT): Total Score Pulse: 96 BP: 184/84 SpO2: 99 % (From Chronic Pain tab; printable questionnaires in Kinyarwanda) Interpretation of Total Score: 0 to 3 [...] ; Surg andrés: Rustam Schmid MD; Location: [facility] [place] Review of Systems Objective: [...] imited to physical therapy, massage therapy, acupuncture, caretaker grounds, along with jabari mmended psychological counseling, either privately, or in group sessions offered by private care individuals, community services, or episcopal organizations. Appropriate referrals were made at patient [...] and complications with the passage of time. senior care use is also associated with depressions, and liver and renal failure. Finally, these medicines are associated with both physical and emotional addiction and can be difficult to stop after taking for only a few weeks. This document has been created using [employer] Voice Recognition software and Marqui. The entry has been reviewed for content and accuracy, but there may still exist "sound alike" sonogram technician word errors and/or unintended additions and deletions. [...] RODRIGUEZ | | | | | | [id number] | | | | | | | [...]
--- OUTSIDE RECORDS SUMMARY | ~2020-03-28 | XMS | Encounter Summary ---
Demographics + + + | Address | [address] | | | [place] [address] | + + + | Home Phone [...] Providers + +------+ + | Care Cotton Acreage Measurer Name | Role | Phone | [...] as of this encounter Progress Notes Interface, Thai Masseur In - 04/28/2005 8:48 PM PDTClinic Date: [...] well but presented to the ER in [place] approximately a week and half ago with [...] up with her primary care doctor in [place] and return to clinic and see me on an as-needed basis only. Lloyd Garcia M.D. Backpackers Manager, Orthopedics and Rehabilitation / [id number] / [id number] / [id number] / [id number] cc: [facility]. Pearce [facility] [address] [place] [address] Rinaldi M.D. [address] [place] [address], [place] [address]Fphhnwxvpizhfz signed by Interface, Thai Masseur In at 04/28/2005 8:4 8 PM PDTdocumented in this encounter Plan of Treatment Not on filedocumented as of this encounter Visit Diagnoses Not on filedocumented in this encounter"
--- OUTSIDE RECORDS SUMMARY | ~2020-03-28 | XMS | Encounter Summary ---
Demographics + + + | Address | [address] | | | [place] [address] | + + + | Home Phone [...] Team Providers + +------+ + | Care Infection Control Rn Name | Role | Phone | [...] as of this encounter Progress Notes Interface, Transformer Inspector In - 07/22/2006 3:18 AM PDTCLINIC DATE: [...] of the right knee. Lloyd Garcia M.D. media arts professor, Orthopedics and Rehabilitation. BIRGIT / SALEEM [id number] / [id number] / [id number] / [id number] cc: JILLIAN TODD MD [address] [facility] [id number] signed by Interface, Transformer Inspector In at 07/22/2006 3:1 8 AM PDTdocumented in this encounter Plan of Treatment Not on filedocumented as of this encounter Visit Diagnoses Not on filedocumented in this encounter"
--- OUTSIDE RECORDS SUMMARY | ~2020-03-28 | XMS | Encounter Summary ---
Demographics + + + | Address | [address] | | | [place] [address] | + + + | Home Phone [...] Team Providers + +------+ + | Care Beverage Inspection Machine Tender Name | Role | Phone [...] | | [address] | Roxann Ayala [place], | | | | | Mailcode: PV430 | [place] [address] | | | | | [facility] | | | | | | [place] | | | | | | [address] | | | | | | [phone] | | | +--------+ + + + [...] [facility] DEPARTMENT | | | | | RADIOLOGY | | | | + +---------+ + + documented in this encounter Visit Diagnoses Not on filedocumented in this encounter"
--- OUTSIDE RECORDS SUMMARY | ~2020-03-28 | XMS | Encounter Summary ---
Demographics + + + | Address | [address] | | | [place] [address] | + + + | Home Phone [...] Providers + +------+ + | Care Practice Lead Name | Role | Phone | + +------+ + | No Pcp Per Patient | PCP | Unavailable | + +------+ + Encounter Details +--------+ + + + + | Date | Type | Department | Care Team | Description | +--------+ + + + + | 10/13/ | Pension Fund Manager | Orthopaedics at | Tesfaye Saenz | Osteoarthritis of | | 2008 | | [facility] [address] | [address] | Hip (Primary Dx) | | | | [address] | | | | | | Mailcode: PV430 | | | | | | [facility] | | | | | | [place], [place] | | | | | | [address] | | | | | | [phone] | | | +--------+ + + + [...]
--- OUTSIDE RECORDS SUMMARY | ~2020-03-28 | XMS | Encounter Summary ---
Demographics + + + | Address | [address] | | | [place] [address] | + + + | Home Phone [...] Team Providers + +------+ + | Care On Site Coordinator Name | Role | Phone | [...] as of this encounter Progress Notes Interface, Mussel Farmer In - 04/28/2005 5:10 PM PDTClinic Date: 08/31/2003 Orthopedic The patient called on August 31, 2003, requesting a prescription refill for oxycodone. A prescription refill was granted 50, 5 mg oxycodone was sent. This prescription refill was handled by Mariella Camacho. Dev Fleming M.D. / [id number] / [id number] / [id number] / Tdocumented in this encounter Plan of Treatment Not on filedocumented as of this encounter Visit Diagnoses Not on filedocumented in this encounter"
--- OUTSIDE RECORDS SUMMARY | ~2020-03-28 | XMS | Clinical Summary ---
Demographics + + + | Address | [address] | | | [place] [address] | + + + | Home Phone [...] Team Providers + +------+ + | Care Family Development Specialist Name | Role | Phone | + +------+ + | JenkinsMarta jackson STEWARDESS SUPERVISOR | PCP | | + +------+ + Source Comments LION is fully live on both [facility] Ambulatory and [facility] InPatient.[facility] Allergies + + + + + + [...] | | + + + +---------+------+------+-------+ | [place]-3 Fatty | Take by mouth. | | [...] | | | + +--------+ +--------+-------+---------+--------+ | OUTSIDE MACHINIST MEDICAID | OUTSIDE MACHINIST | [id number] | 06/01/20 | | | [...] gigi | | | 7 (Home) | [id number] | + +--------+ +--------+ + + | Shelby Galdamez | Third | Self | [birth year] | | [address] | | | Democrat | | 1960 | [phone] | [address] [place] | | | Liabil | | | 7 (Home) | [address] | | | ity | | | | | + +--------+ +--------+ + + Advance Directives + + + + + | Type | Date Recorded | Patient | Explanation | | | | Fitter'S Assistant | | + + + + + | Advance | | | | | Directives and | | | | | Living Will | | | | + + + + + | Power of | | | | | Cna Pct | | | | + + + [...]
--- OUTSIDE RECORDS SUMMARY | ~2020-03-28 | XMS | Encounter Summary ---
Demographics + + + | Address | [address] | | | [place] [address] | + + + | Home Phone [...] Providers + +------+ + | Care Peoplesoft Hrms Developer Name | Role | Phone | [...] | | | | | (sacroiliac) | [facility], | | | | | joint | Rd | 10th Floor | | | | | inflammation | [place], [place] | [place], [place] | | | | | ([facility]ERLY [facility]) | [address] | [address] | | | | | Procedures | | Phone: | | | | | CT INJ | | [phone] | | | | | SACROILIAC | | Fax: | | | | | JOINT | | [phone] | | | | | W/NEEDLE | [...] [place] | | | | | | [address] | | | | | | [place], [place] | | | | | | [address] | | | | | | [phone] | | | +--------+ + + + [...] | + + + +---------+--------+ + | [place]-3 Fatty | Take by mouth. | | [...] None. | | | | | | Refractory Mixer: Dr. Moss, | | | | | | vice president media relations. | | | | | | Pasta Maker: | | | | | | Sue, [...] | | | | | child support specialist. Force Dispatcher | | | | | | imaging [...]
--- OUTSIDE RECORDS SUMMARY | ~2020-03-28 | XMS | Encounter Summary ---
Demographics + + + | Address | [address] | | | [place] [address] | + + + | Home Phone [...] Team Providers + +------+ + | Care Clicker Operator Name | Role | Phone | [...] | | | unspecified | | Rd [place], | | | | | whether | | [place] | | | | | generalized | | [address] | | | | | or | | Phone: | | | | | localized, | | [phone] | | | | | pelvic | | Fax: | | | | | region and | | [phone] | | | | | thigh | [...] | | | | Mailcode: PV430 | [place], [place] | | | | | [facility] | [address] | | | | | [place], [place] | [phone] | | | | | [address] | | | | | | [phone] | | | +--------+---------+ + + + [...]
--- OUTSIDE RECORDS SUMMARY | ~2020-03-28 | XMS | Encounter Summary ---
Demographics + + + | Address | [address] | | | [place] [address] | + + + | Home Phone [...] Providers + +------+ + | Care Wrecker Driver Name | Role | Phone | [...] Pavilion | | | | | | [place], [place] | | | | | | [address] | | | | | | [phone] | | | +--------+ + + + [...]
--- OUTSIDE RECORDS SUMMARY | ~2020-03-28 | XMS | Encounter Summary ---
Demographics + + + | Address | [address] | | | [place] [address] | + + + | Home Phone [...] Providers + +------+ + | Care Internal Sales Name | Role | Phone | [...] | Transcriptions | + + | Interface, Assistant Professor Of Economics In - 03/06/2006 1:10 AM PDT Date: | | 08/16/2003Attending Surgeon: Lloyd Garcia M.D.Supply Chain Business Analyst(s): | | Benson Boone M.D.Preoperative Diagnosis:Right hip [...] cc per Arreaga drain to | | 8-Kittitian tubes to 1 median Hemovac suctioncanister.Postoperative Plan:Ancef [...] to | | OperatingRoom #6 at [facility] Operating Room suite.She | | was placed [...] Vicryl mattress sutures andaddition | | of fqxivs-ie-rlwkw 0 Vicryl. The fascial layer with crjighlhxfoklidkm-ny-jsfly 0 | | Vicryl sutures. Fadumo's fascia [...] to | | leaving the room.Lloyd Garcia M.D.Rougher Operator, Orthopedics and | | Rehabilitation / [id number] / [id number] / [id number] / [id number]: 08/16/2003T: | | 08/16/2003cc:Ninfa Guillen M.D.[address] [place] [address] | | | |The posterior superior iliac [...] Vicryl mattress sutures and | |addition of tqxgmp-tb-wxano 0 Vicryl. The fascial layer with interrupted | |fyfbuu-bc-jezyp 0 Vicryl sutures. Fadumo's fascia was closed [...] | | | |Lloyd Garcia M.D. | |Rougher Operator, Orthopedics and Rehabilitation | | | | / | |[id number] / [id number] / [id number] / [id number] | | | | | | | |cc: | | | |Ninfa Guillen M.D. | |[address], | |[place] [address] | + + documented in this encounter Visit Diagnoses Not on filedocumented in this encounter"
--- OUTSIDE RECORDS SUMMARY | ~2020-03-28 | XMS | Encounter Summary ---
Demographics + + + | Address | [address] | | | [place] [address] | + + + | Home Phone [...] Team Providers + +------+ + | Care Child And Youth Program Assistant Name | Role | Phone | [...] Pavilion | | | | | | [place], [place] | | | | | | [address] | | | | | | [phone] | | | +--------+ + + + [...]
--- OUTSIDE RECORDS SUMMARY | ~2020-03-28 | XMS | Encounter Summary ---
Demographics + + + | Address | [address] | | | [place] [address] | + + + | Home Phone [...] Providers + +------+ + | Care Structural Steel Worker Helper Name | Role | Phone [...] | Transcriptions | + + | Interface, Cabin Agent In - 09/19/2005 9:05 PM PST Date: | | 09/29/2003Attending Surgeon: Lloyd Garcia M.D.Health Concierge(s): | | Benson Boone M.D.Preoperative Diagnosis:Right greater [...] Boone M.D.Lloyd | | Sierra Garcia.RT / [id number] / [id number] / [id number] / [id number]: 10/21/2003T: 10/22/2003 | |where she had a [...] | | | |RT / HS | |[id number] / [id number] / 40541 / 89630 | | | | | + + documented in this encounter Visit Diagnoses Not on filedocumented in this encounter"
--- OUTSIDE RECORDS SUMMARY | ~2020-03-28 | XMS | Encounter Summary ---
Demographics + + + | Address | [address] | | | [place] [address] | + + + | Home Phone [...] Providers + +------+ + | Care Senior Program Manager Name | Role | Phone [...] | | | | Mailcode: PV430 | [facility] [place] | | | | | [facility] | [address] | | | | | [place], [place] | [phone] | | | | | [address] | | | | | | [phone] | | | +--------+ + + + [...]
--- OUTSIDE RECORDS SUMMARY | ~2020-03-28 | XMS | Encounter Summary ---
Demographics + + + | Address | [address] | | | [place] [address] | + + + | Home Phone [...] Providers + +------+ + | Care Health Care Marketing Manager Name | Role | Phone [...] as of this encounter Progress Notes Interface, Craft Manager In - 04/28/2005 6:17 PM PDTClinic [...] see us. She instead went to the [facility] emergency department, where she was [...] a chance to get back home to [place]. We will call her tomorrow and reiterate how important it is that we take care of this fluid collection in her hip and try to get her better. Dori Wong. Lloyd Garcia M.D. Attending Physician /jamil P [phone] signed by Interface, Craft Manager In at 04/28/2005 6:17 PM PDTdoc umented in this encounter Plan of Treatment Not on filedocumented as of this encounter Visit Diagnoses Not on filedocumented in this encounter"
--- OUTSIDE RECORDS SUMMARY | ~2020-03-28 | XMS | Encounter Summary ---
Demographics + + + | Address | [address] | | | [place] [address] | + + + | Home Phone [...] Providers + +------+ + | Care Social Work Program Coordinator Name | Role | Phone | [...] + + | 07/20/ | Telephone | [facility] | Jasper Medrano, | Referral Question | | 2018 | | [address] | [address] | (nutrition referral | | | | [place], [place] | [place] | question) | | | | [address] | [id number] | | | | | [phone] | | | +--------+ + + + [...] Miscellaneous Notes Telephone Encounter - Kina Hendrix Wreath Inspector - 07/20/2019 4:20 PM PDTPatient called wanting to know if we had a referral for nutrition. I Tried calling patient to answer her question regarding the Nutrition Referral, but there was no answer, so I left a VM. Patient refused Nutritional Service & referral got closed. Patient can call [facility] at .Electronically signed by Kina Hendrix Wreath Inspector at 07/01 4:51 PM PDTTelephone Encounter - Deb Terrazas - 07/20/2019 2:34 PM PDTAnswe ring Service Message from 07/20/19 @ 2:25pm: I would like to know if you have a referral for a seater grinder. Please call back. documented in this encounter [...] RODRIGUEZ | | | | | | [id number] | | | | | | | | +--------+---------+ + + + documented as of this encounter Visit Diagnoses Not on filedocumented in this encounter"
--- OUTSIDE RECORDS SUMMARY | ~2020-03-28 | XMS | Encounter Summary ---
Demographics + + + | Address | [address] | | | [place] [address] | + + + | Home Phone [...] Team Providers + +------+ + | Care Surety Bond Agent Name | Role | Phone | + +------+ + | Marta Jenkins OPHTHALMIC AIDE | PCP | | + +------+ [...] | Jamie Mailcode: [address] [place], | | | | | [place], [place] | [place] [address] | | | | | [address] | | | | | | [phone] | | | +--------+ + + + [...] | + + + + + | [facility] | [address] | [place] [address] | | | LAB-MICRO | | | [...] | | | | | performed at [facility] | | | | | | [facility] | | | | | | Laboratory. | | | | + + + + + + + + | Specimen | + + | | + + + + + + + | Performing | Address | City/State/Zipcode | Phone Number | | Organization | | | | + + + + + | [facility] | [address] | [place] [address] | | | LAB-MICRO | | | [...] + + + | [facility] | [address] | [place] [address] | | | LAB-MICRO | | | [...] + + + | [facility] | [address] | [place] [address] | | | LAB-MICRO | | | [...] + + + | [facility] | [address] | [place] [address] | | | LAB-MICRO | | | [...] | | | | | performed at [facility] | | | | | | [facility] | | | | | | Laboratory | | | | + + + + + + + + | Specimen | + + | | + + + + + + + | Performing | Address | City/State/Zipcode | Phone Number | | Organization | | | | + + + + + | [facility] | [address] | [place] [address] | | | LAB-MICRO | | | [...] | | | | Test performed at [facility] | | | | | | [facility] | | | | | | Laboratory. | | | | + + + + + + + + | Specimen | + + | | + + + + + + + | Performing | Address | City/State/Zipcode | Phone Number | | Organization | | | | + + + + + | [facility] | [address] | [place] [address] | | | LAB-MICRO | | | [...] | | | | | performed at [facility] | | | | | | [facility] | | | | | | Laboratory. | | | | + + + + + + + + | Specimen | + + | | + + + + + + + | Performing | Address | City/State/Zipcode | Phone Number | | Organization | | | | + + + + + | [facility] | [address] | [place] [address] | | | LAB-MICRO | | | [...] + + + | [facility] | [address] | [place] [address] | | | LAB-MICRO | | | [...] | + + + + + | [facility] | [address] | [place] [address] | | | LAB-MICRO | | | [...] + + + | [facility] | [address] | [place] [address] | | | LAB-MICRO | | | [...] | | | | | performed at [facility] | | | | | | [facility] | | | | | | Laboratory | | | | + + + + + + + + | Specimen | + + | | + + + + + + + | Performing | Address | City/State/Zipcode | Phone Number | | Organization | | | | + + + + + | [facility] | [address] | [place] [address] | | | LAB-MICRO | | | [...] + + + | [facility] | [address] | [place] [address] | | | LAB-MICRO | | | [...] | | | | | performed at [facility] | | | | | | [facility] | | | | | | Laboratory. | | | | + + + + + + + + | Specimen | + + | | + + + + + + + | Performing | Address | City/State/Zipcode | Phone Number | | Organization | | | | + + + + + | [facility] | [address] | [place] [address] | | | LAB-MICRO | | | | + + + + + documented in this encounter Visit Diagnoses Not on filedocumented in this encounter"
--- OUTSIDE RECORDS SUMMARY | ~2020-03-28 | XMS | Encounter Summary ---
Demographics + + + | Address | [address] | | | [place] [address] | + + + | Home Phone [...] Providers + +------+ + | Care Television Analyzer Name | Role | Phone | + [...] as of this encounter Progress Notes Interface, Poacher Operator In - 08/20/2006 3:01 AM PSTCLINIC DATE: [...] views. Fox Chopra M.D. BETH / SALEEM [id number] / [id number] / [id number] / C: 02/18/2000 jerman Noland M.D. [place], [place] [address] [place] [address], [address] [place], [place] [address]Kvtnhuwbuewmsd signed by Interface, Poacher Operator In at 08/20/2006 3:01 AM PSTInterface, Poacher Operator In - 08/20/2006 3:01 AM PSTCLINIC DATE: [...] from her physical therapist, Rustam Sykes, at [facility] in [place], [place], which indicates that she has been [...] in any additional way at phone number [phone]. PHYSICAL EXAMINATION: Essentially unchanged from previous exams. [...] necessary at this point. Lloyd Garcia M.D. Smoke And Flame Specialist, Orthopedics and Rehabilitation / [id number] / [id number] / [id number] / cc: Helio Noland [place], [place] [address] [place] [address] documented in this encounter Plan of Treatment Not on filedocumented as of this encounter Visit Diagnoses Not on filedocumented in this encounter"
--- OUTSIDE RECORDS SUMMARY | ~2020-03-28 | XMS | Encounter Summary ---
Demographics + + + | Address | [address] | | | [place] [address] | + + + | Home Phone [...] Providers + +------+ + | Care Electrical Cad Technician Name | Role | Phone | [...] | | | | Mailcode: PV430 | [place], [place] | not done yet | | | | [facility] | [address] | 07-18.) | | | | [place], [place] | [phone] | | | | | [address] | | | | | | [phone] | | | +--------+ + + + [...]
--- OUTSIDE RECORDS SUMMARY | ~2020-03-28 | XMS | Encounter Summary ---
Demographics + + + | Address | [address] | | | [place] [address] | + + + | Home Phone [...] Providers + +------+ + | Care Credit And Collection Manager Name | Role | Phone | [...] Pavilion | | | | | | [place], [place] | | | | | | [address] | | | | | | [phone] | | | +--------+ + + + [...] of | | | | | | Zkxw-Ppvwkhosiaa-hsqspdr | | | | | | jose. [...] + + | [facility] DEPARTMENT | | | | | [...]
--- OUTSIDE RECORDS SUMMARY | ~2020-03-28 | XMS | Encounter Summary ---
Demographics + + + | Address | [address] | | | [place] [address] | + + + | Home Phone [...] Team Providers + +------+ + | Care Candle Extrusion Machine Operator Name | Role | Phone [...] | Transcriptions | + + | Interface, Computer Lab Aide In - 09/19/2005 9:05 PM PST Date: | | 09/29/2003Attending Surgeon: Lloyd Garcia M.D.Wet Process Assistant Head Miller(s): | | Benson Boone M.D.Preoperative Diagnosis:Right greater [...] Boone M.D.Lloyd | | Sierra Garcia.RT / [id number] / [id number] / [id number] / [id number]: 10/21/2003T: 10/22/2003 | |where she had a [...] | | | |RT / HS | |[id number] / [id number] / [id number] / 94174 | | | | | + + documented in this encounter Visit Diagnoses Not on filedocumented in this encounter"
--- OUTSIDE RECORDS SUMMARY | ~2020-03-28 | XMS | Encounter Summary ---
Demographics + + + | Address | [address] | | | [place] [address] | + + + | Home Phone [...] Providers + +------+ + | Care Human Service Coordinator Name | Role | Phone | [...] as of this encounter Progress Notes Interface, Ski Lift Mechanic In - 08/28/2006 3:05 AM PSTCLINIC DATE: [...] clinical evaluation. Benson Cooper M.D. / SALEEM [id number] / [id number] / [id number] / cc: Lloyd Garcia M.D. documented in this encounter Plan of Treatment Not on filedocumented as of this encounter Visit Diagnoses Not on filedocumented in this encounter"
--- OUTSIDE RECORDS SUMMARY | ~2020-03-28 | XMS | Encounter Summary ---
Demographics + + + | Address | [address] | | | [place] [address] | + + + | Home Phone [...] Team Providers + +------+ + | Care Mother Repairer Name | Role | Phone | + +------+ + | Marta Jenkins MANAGER SIMULATION | PCP | | + +------+ + Encounter Details +--------+ + + + + | Date | Type | Department | Care Team | Description | +--------+ + + + + | 06/11/ | Ancillary | Registration 3181 | Lloyd Garcia MD | | | 2005 | Registratio | T[facility] | | | | | n | Jamie Mailcode: [id number] | | | | | | [place], [place] | | | | | | [address] | | | | | | [phone] | | | +--------+ + + + [...]
--- OUTSIDE RECORDS SUMMARY | ~2020-03-28 | XMS | Encounter Summary ---
Demographics + + + | Address | [address] | | | [place] [address] | + + + | Home Phone [...] Team Providers + +------+ + | Care Bias Cutter Name | Role | Phone | [...] | 01/31/ | Office | [facility] | Ladarius Martínez PA | MAMADOU on CPAP (Primary | | 2015 | Visit | SLEEP DISORDER [address] | [address] | Dx) | | | | [address] [place] | [place], [place] | | | | | [place] [address] | [address] | | | | | [phone] | | | +--------+---------+ + + + [...] S9 with nasal mask obtained from: In [facility] [place] Pressure: 9-16 cm Median: 11.5 cm 95%: [...] been interested in getting her equipment from [facility] in [place] instead of [facility] Review of Systems Objective: Physical Exam Assessment: [...] year, sooner prn. Fifteen minutes were spent jwav-[id number], wit h the majority of time spent [...] [place] | | | | | | [id number] | | | | | | | | +--------+---------+ + + + documented as of this encounter Visit Diagnoses + + | Diagnosis | + + | MAMADOU on CPAP - Primary Obstructive sleep apnea (adult) (pediatric) | + + documented in this encounter"
--- OUTSIDE RECORDS SUMMARY | ~2020-03-28 | XMS | Encounter Summary ---
Demographics + + + | Address | [address] | | | [place] [address] | + + + | Home Phone [...] Team Providers + +------+ + | Care Bessemer Converter Operator Name | Role | Phone | + +------+ + | Marta Jenkins AWNING HANGER HELPER | PCP | | + +------+ [...] | | | | Mailcode: [id number] | [place], [place] | | | | | [facility] | [address] | | | | | [place], [place] | [phone] | | | | | [address] | | | | | | [phone] | | | +--------+ + + + [...]
--- OUTSIDE RECORDS SUMMARY | ~2020-03-28 | XMS | Encounter Summary ---
Demographics + + + | Address | [address] | | | [place] [address] | + + + | Home Phone [...] Providers + +------+ + | Care Casting And Locker Room Servicer Name | Role | Phone | [...] pain, | [address], | | | | | generalized | [address], [place] | [address] | | | | | Other | [address] [place] | [place], | | | | | symptoms | [place], [place] | [place] [address] | | | | | involving | [address] | Phone: | | | | | digestive | Phone: | [phone] | | | | | system([phone] | [phone] | Fax: | | | | | 9) Nausea | Fax: | [phone] | | | | | alone | [phone] | | | | | | Flatulence, | | | | | | | eructation, | | | | | | | and gas pain | | | | | | | Procedures | | | | | | | DE UPPER | | | | | | | GI | | | | | | | ENDOSCOPY,DI | | | | | | | AGNOSIS DE | | | | | | | UPPER GI | | | | | | | ENDOSCOPY,BI | | | | | | | OPSY DE | | | | | | | COLONOSCOPY, | | | | | | | DIAGNOSTIC | | | | | | | DE | | | | | | | [...] 2011 | | GASTROENTEROLOGY | [address], [place] | generalized (Primary | | | | [address] | [address] [place], [place] | Dx); Other symptoms | | | | [address] [place], [place] | [address] | involving digestive | | | | [address] | | system; Nausea | | | | [phone] | | alone; Flatulence, | | | [...] [place] | | | | | | [address] | | | | | | | [...]
--- OUTSIDE RECORDS SUMMARY | ~2020-03-28 | XMS | Encounter Summary ---
Demographics + + + | Address | [address] | | | [place] [address] | + + + | Home Phone [...] Providers + +------+ + | Care Scale Agent Name | Role | Phone | [...] | | Osteoarthros | | [address] [facility] | | | | | is, | RICHARD | [address] | | | | | unspecified | [facility] | [address] [place], | | | | | whether | CL[address] [address] | [place] | | | | | generalized | [address] | [address] | | | | | or | [place], | Phone: | | | | | localized, | [place] [address] | [phone] | | | | | pelvic | Phone: | Fax: | | | | | region and | [phone] | [phone] | | | | | thigh | Fax: | | | | | | | [phone] | | +--------+--------+ + + + + [...] [address] | | | | | | [place], [place] | | | | | | [address] | | | | | | [phone] | | | +--------+---------+ + + + [...] agree with the note. TYRONE COLBY MD [facility] ORTHOPAEDICS & REHABILITATION [address] [place] [address] Mailcode: [id number] [place] [address] esfaye Saenz PA-C - 01/20/2009 [...] CRP pending. Offered to refer her to [facility] pain clinic if she would like [...] DEPARTMENT OF | [address] | [place] [address] | | | PATHOLOGY | [address] | | | + + + + + | [facility] DEPARTMENT OF | [address] | [place] [address] | | | PATHOLOGY | [address] | | | + + + + + SEDIMENTATION RATE (01/20/2009 10:02 AM PDT) + +-------+ + + + | Component | Value | Ref Range | Performed | Pathologist | | | | | At | Signature | + +-------+ + + + | SEDIMENTATI | 16 | <21 mm/hr | [facility] [...] + + + | [facility] | [address] [facility] | [place] [address] | | | PATHOLOGY | [address] | | | + + + + + | [facility] | [facility] | [place] [address] | | | PATHOLOGY | [address] [...] Change effective 10/26/08 | | | [facility] | | [place] [address] | | | [place] [address] | | + + + + + + + + | Performing | Address | City/State/Zipcode | Phone Number | | Organization | | | | + + + + + | [facility] | [address] | [place] [address] | | | LABORATORY | | | | + + + + + documented in this encounter Visit Diagnoses + + | Diagnosis | + + | Hip pain Pain in joint, pelvic region and thigh | + + | Hip replacement Hip joint replacement by other means | + + documented in this encounter"
--- OUTSIDE RECORDS SUMMARY | ~2020-03-28 | XMS | Encounter Summary ---
Demographics + + + | Address | [address] | | | [place] [address] | + + + | Home Phone [...] Providers + +------+ + | Care Brand Strategy Manager Name | Role | Phone | [...] | | Procedures | Rd | [place], | | | | | CONSULT TO | [place], [place] | [place] [address] | | | | | ORTHOPEDICS | [address] | | | | | | AND [...] | | [address] | [address] [place], | | | | | Mailcode: PV430 | [place] [address] | | | | | [facility] | | | | | | [place], [place] | | | | | | [address] | | | | | | [phone] | | | +--------+---------+ + + + [...] as of this encounter Progress Notes Interface, Toe Laster In - 10/05/2006 2:33 AM PST [id number] CHAD Osei [id number] Clinic Date: 10/02/2006 Clinic: Orthopaedics [place] Galdame[place] [...] Acevedo. Gino Baker M.D. KEE / SALEEM [id number] / [id number] / [id number] / [id number] cc: Quintin [place] Electronically signed by Gino [...]
--- OUTSIDE RECORDS SUMMARY | ~2020-03-28 | XMS | Clinical Summary ---
Demographics + + + | Address | [address] | | | [place] [address] | + + + | Home Phone [...] Providers + +------+ + | Care Multi Slide Machine Tender Name | Role | Phone | + +------+ + | JenkinsMarta jackson PHARMACEUTICAL COMPOUNDING SUPERVISOR | PCP | | + +------+ + Source Comments LION is fully live on both [facility] Ambulatory and [facility] InPatient.[facility]ly [facility] Allergies + + + + + + [...] | | + + + +---------+------+------+-------+ | Shelby-3 Fatty | Take by mouth. | | [...] | | | + +--------+ +--------+-------+---------+--------+ | [employer] | [employer] | [id number] | 06/01/20 | | | [...] gigi | | | 7 (Home) | [address] | + +--------+ +--------+ + + | Shelby Galdamez | Third | Self | [birth year] | | [address] | | | [employer] | | 1960 | [phone] | [address] [place] | | | Liabil | | | 7 (Home) | [address] | | | ity | | | | | + +--------+ +--------+ + + Advance Directives + + + + + | Type | Date Recorded | Patient | Explanation | | | | Corporation Lawyer | | + + + + + | Advance | | | | | Directives and | | | | | Living Will | | | | + + + + + | Power of | | | | | Plugging Machine Operator | | | | + + + [...]
--- OUTSIDE RECORDS SUMMARY | ~2020-03-28 | XMS | Encounter Summary ---
Demographics + + + | Address | [address] | | | [place] [address] | + + + | Home Phone [...] Team Providers + +------+ + | Care Monument Setter Helper Name | Role | Phone | [...] [place] | | | | | | [address] | | | | | | [phone] | | | +--------+ + + + [...] | | | | | | obtained. Legal Service Specialist AP and | | | | | [...] FINDINGS: | | | | | | Legal Service Specialist images of the | | | | [...] | + +---------+ + + | [facility] DEPARTMENT OF | | | | | [...] | | | | | | obtained. Legal Service Specialist AP and | | | | | [...] FINDINGS: | | | | | | Legal Service Specialist images of the | | | | [...] | + +---------+ + + | [facility] DEPARTMENT OF | | | | | RADIOLOGY | | | | + +---------+ + + documented in this encounter Visit Diagnoses Not on filedocumented in this encounter"
--- OUTSIDE RECORDS SUMMARY | ~2020-03-28 | XMS | Encounter Summary ---
Demographics + + + | Address | [address] | | | [place] [address] | + + + | Home Phone [...] Team Providers + +------+ + | Care Abstract Checker Name | Role | Phone | [...] of this encounter Progress Notes Interface, Network Operations Lead In - 08/31/2006 1:03 AM PSTCLINIC DATE: [...] more. PHYSICAL EXAMINATION: She ambulates with a axgidcdy-bp-bsdppf right coxalgic gait leaning over the right [...] coordinated by her primary care physician. Lloyd aGrcia M.D. Machine Welt Butter, Orthopedics and Rehabilitation / [id number] / [id number] / [id number] / [id number] C: 10/23/1999 kavita cc: Helio Noland M.D. Counts include 234 beds at the [facility] [address] Benson Cooper M.D. [facility] Orthopedics Rehabilitation [address], [address] [place] documented in this encounter Plan of Treatment Not on filedocumented as of this encounter Visit Diagnoses Not on filedocumented in this encounter"
--- OUTSIDE RECORDS SUMMARY | ~2020-03-28 | XMS | Encounter Summary ---
Demographics + + + | Address | [address] | | | [place] [address] | + + + | Home Phone [...] Providers + +------+ + | Care Shipping Agent Name | Role | Phone | [...] Pavilion | | | | | | [place], [place] | | | | | | [address] | | | | | | [phone] | | | +--------+ + + + [...] near | | | | | | [id number] | | | | | | appearance [...] | | + +---------+ + + | [facility] DEPARTMENT OF | | | | | RADIOLOGY | | | | + +---------+ + + documented in this encounter Visit Diagnoses Not on filedocumented in this encounter"
--- OUTSIDE RECORDS SUMMARY | ~2020-03-28 | XMS | Encounter Summary ---
Demographics + + + | Address | [address] | | | [place] [address] | + + + | Home Phone [...] Providers + +------+ + | Care Patient Liaison Name | Role | Phone | [...] floor | | | | | | [place], [place] | | | | | | [address] | | | | | | [phone] | | | +--------+------+ + + + [...] | + + + + + | [facility] DEPARTMENT OF | [facility] | [place] [address] | | | PATHOLOGY | [address] | | | + + + + + | [place] DEPARTMENT OF | [address] [facility] | [place] [address] | | | PATHOLOGY | [address] [...] DEPARTMENT OF | [address] | [place] [address] | | | PATHOLOGY | [address] | | | + + + + + | [facility] DEPARTMENT OF | [address] | [place] [address] | | | PATHOLOGY | [address] [...] + + + + | [facility] DEPARTMENT | [address] [facility] | [place] [address] | | | PATHOLOGY | [address] | | | + + + + + | [facility] DEPARTMENT | [address] [facility] | [place] [address] | | | PATHOLOGY | [address] [...] + + + + | [facility] DEPARTMENT OF | [address] | [place] [address] | | | PATHOLOGY | [address] | | | + + + + + | [facility] DEPARTMENT OF | [address] | [place] [address] | | | PATHOLOGY | [address] [...] Lab) [facility] | | | [place] [address] | | | [place] [address] | | + + + + + + + + | Performing | Address | City/State/Zipcode | Phone Number | | Organization | | | | + + + + + | [facility] | [address] | [place] [address] | | | LABORATORY | | | | + + + + + documented in this encounter Visit Diagnoses + + | Diagnosis | + + | Hip pain Pain in joint, pelvic region and thigh | + + | Hip replacement Hip joint replacement by other means | + + documented in this encounter"
--- OUTSIDE RECORDS SUMMARY | ~2020-03-28 | XMS | Encounter Summary ---
Demographics + + + | Address | [address] | | | [place] [address] | + + + | Home Phone [...] Team Providers + +------+ + | Care Trimmer Press Clippings Name | Role | Phone | + +------+ + | No Pcp Per Patient | PCP | Unavailable | + +------+ + Encounter Details +--------+ + + + + | Date | Type | Department | Care Team | Description | +--------+ + + + + | 12/15/ | Manager [place] | Orthopaedics at | Kalyan Arias MD | JUAN DAVID (Total Hip | | 2008 | | [facility] [address] | [address] | Arthroplasty) | | | | [address] | [address] | (Primary Dx) | | | | Mailcode: PV430 | [place], [place] | | | | | [facility] | [address] | | | | | [place], [place] | [phone] | | | | | [address] | | | | | | [phone] | | | +--------+ + + + [...] + +---------+ + + | [facility] DEPARTMENT OF | | | | | [...]
--- OUTSIDE RECORDS SUMMARY | ~2020-03-28 | XMS | Encounter Summary ---
Demographics + + + | Address | [address] | | | [place] [address] | + + + | Home Phone [...] Providers + +------+ + | Care Operations Research Analyst Name | Role | Phone | + +------+ + PCP | Unavailable | + +------+ + Encounter Details +--------+ + + + + | Date | Type | Department | Care Team | Description | +--------+ + + + + | 09/14/ | Hospital | [facility] | Unknown, | | | 1991 | Encounter | MED CTR XRAY [address] | [address] . | | | | | [address] | | | | | | [place] [address] | (Fax) | | | | | [phone] | | | +--------+ + + + [...] [place] | | | | | | [address] | | | | | | | | +--------+---------+ + + + documented as of this encounter Visit Diagnoses Not on filedocumented in this encounter"
--- OUTSIDE RECORDS SUMMARY | ~2020-03-28 | XMS | Encounter Summary ---
Demographics + + + | Address | [address] | | | [place] [address] | + + + | Home Phone [...] Team Providers + +------+ + | Care Mincemeat Maker Name | Role | Phone | [...] | [facility] | MEGAN Reddy [address] | | | | | [address] | [address] | | | | | Loop Physician's | [place], [place] | | | | | [place], 3rd floor | [address] | | | | | [place], [place] | [phone] | | | | | [address] | | | | | | [phone] | | | +--------+ + + + [...] [address] | [place] | [phone] | [facility] | | [address] | | + + + + + | [place] | [address] | [place] | | | [facility] | | [address] | | + + + + + [...] [address] | [place] | [phone] | | [facility] | | [address] | | + + + + + | [facility] | [address] | [place] | | | [facility] | | [address] | | + + + + + documented in this encounter Visit Diagnoses Not on filedocumented in this encounter"
--- OUTSIDE RECORDS SUMMARY | ~2020-03-28 | XMS | Encounter Summary ---
Demographics + + + | Address | [address] | | | [place] [address] | + + + | Home Phone [...] Providers + +------+ + | Care Cash Reconciliation Specialist Name | Role | Phone | [...] | | | [address] | [address] [place], [place] | | | | | Mailcode: PV430 | [address] | | | | | [facility] | | | | | | [place], [place] | | | | | | [address] | | | | | | [phone] | | | +--------+ + + + [...] | | + +---------+ + + | [facility] DEPARTMENT OF | | | [...] | | + +---------+ + + | [facility] DEPARTMENT OF | | | | | RADIOLOGY | | | | + +---------+ + + documented in this encounter Visit Diagnoses Not on filedocumented in this encounter"
--- OUTSIDE RECORDS SUMMARY | ~2020-03-28 | XMS | Encounter Summary ---
Demographics + + + | Address | [address] | | | [place] [address] | + + + | Home Phone [...] Team Providers + +------+ + | Care Disciplinary Hearing Officer Name | Role | Phone | [...] | | | | | [address] | | | | | | [place] [address] | | | | | | [phone] | | +--------+ + + + + [...] by | | | | | | [facility] | | | | | | [facility]. | | | | + + + + + + + + | Specimen | + + | | + + + + + + + | Performing | Address | City/State/Zipcode | Phone Number | | Organization | | | | + + + + + | [facility] | [address] | [place] [address] | | | LABORATORY | | | | + + + + + documented in this encounter Visit Diagnoses Not on filedocumented in this encounter"
--- OUTSIDE RECORDS SUMMARY | ~2020-03-28 | XMS | Encounter Summary ---
Demographics + + + | Address | [address] | | | [place] [address] | + + + | Home Phone [...] Providers + +------+ + | Care Insulation Cupola Charger Name | Role | Phone | [...] of this encounter Progress Notes Interface, Health Policy Manager In - 05/17/2006 3:10 AM PDTCLINIC DATE: [...] arthroplasty at that point. Lloyd Garcia M.D. Slasher Runner, Orthopedics and Rehabilitation / [id number] / [id number] / [id number] / [id number] cc: Ninfa Guillen M.D. [address] [place] [address] [id number] signed by Interface, Health Policy Manager In at 05/17/2006 3:1 0 AM PDTInterface, Health Policy Manager In - 05/17/2006 3:10 AM PDTCLINIC DATE: [...] MD Lloyd Causey M.D. SAMANTHA / SALEEM [id number] / [id number] / [id number] / Tdocumented in this encounter Plan of Treatment Not on filedocumented as of this encounter Visit Diagnoses Not on filedocumented in this encounter"
--- OUTSIDE RECORDS SUMMARY | ~2020-03-28 | XMS | Encounter Summary ---
Demographics + + + | Address | [address] | | | [place] [address] | + + + | Home Phone [...] Providers + +------+ + | Care Farm Equipment Technician Name | Role | Phone [...] PV430 | [facility] [place] | (injection) | | | | [facility] | [address] | | | | | [facility] [place] | [phone] | | | | | [address] | | | | | | [phone] | | | +--------+ + + + [...]
--- OUTSIDE RECORDS SUMMARY | ~2020-03-28 | XMS | Encounter Summary ---
Demographics + + + | Address | [address] | | | [place] [address] | + + + | Home Phone [...] Providers + +------+ + | Care Manager Employee Benefits Name | Role | [...] as of this encounter Progress Notes Interface, Fisher Mussel In - 07/22/2006 3:18 AM PDTCLINIC DATE: [...] that. Jason Castano M.A. TAYE / SALE[place] [id number] / [id number] / [id number] / Tdocumented in this encounter Plan of Treatment Not on filedocumented as of this encounter Visit Diagnoses Not on filedocumented in this encounter"
--- OUTSIDE RECORDS SUMMARY | ~2020-03-28 | XMS | Encounter Summary ---
Demographics + + + | Address | [address] | | | [place] [address] | + + + | Home Phone [...] Team Providers + +------+ + | Care Bank Manager Name | Role | Phone | [...] + + + + | 11/13/ | Telephone Appointment Clerk | Infectious | Carolina Putnam | | | 2010 | | [facility] | K, PA-C [address] | | | | | [address] | [facility] | | | | | Loop Physician's | [place], [place] | | | | | [place], 3rd floor | [address] | | | | | [place], [place] | [phone] | | | | | [address] | | | | | | [phone] | | | +--------+ + + + [...]
--- OUTSIDE RECORDS SUMMARY | ~2020-03-28 | XMS | Encounter Summary ---
Demographics + + + | Address | [address] | | | [place] [address] | + + + | Home Phone [...] + +------+ + | Care Public Relations Name | Role | Phone | + [...] Pavilion | | | | | | [place], [place] | | | | | | [address] | | | | | | [phone] | | | +--------+ + + + [...]
--- OUTSIDE RECORDS SUMMARY | ~2020-03-28 | XMS | Encounter Summary ---
Demographics + + + | Address | [address] | | | [place] [address] | + + + | Home Phone [...] Providers + +------+ + | Care Group Exercise Manager Name | Role | Phone | + +------+ + | Travis Mcginnis MD | PCP | | + +------+ + Encounter Details +--------+ + + + + | Date | Type | Department | Care Team | Description | +--------+ + + + + | 07/01/ | Abstract | Orthopaedics | Note, Orthopedics | | | 2018 | | [facility] at [facility] | Clinic | | | | | for Health and | | | | | | Healing [address] | | | | | | [place] Mailcode: | | | | | | CH[facility] | | | | | | Health and Healing, | | | | | | Building | | | | | | Floor [place], [place] | | | | | | [address] | | | | | | [phone] | | | +--------+ + + + [...] revision, floating bone in back. 2009. Dr Llyod NASCIMENTO R JUAN DAVID 2002 Have you seen anyone for this yet? [facility] in [place]. ED 06/24 [facility] in [facility]. Has had sepsis and MRSA and need to lose 35 lbs per this office. [facility] [phone] 07/03 via phone MRI May 2018 CT [facility]'s impax X-Ray May 2018 XR [facility]' impax CT no Ultrasound no Other [...] will you be traveling for this appointment? [place] Note: If patient traveling greater than 1 hour, consider coordinating any additi onal testing or appointments. Medical Review needed? yes Reminders: ? Ask patient if they d like to sign up for [place] CK1hart ? Don t forget to pull in CareEveryWhere Additional Comments: documented in this encounte r Plan of Treatment Not on filedocumented as of this encounter Visit Diagnoses Not on filedocumented in this encounter
--- OUTSIDE RECORDS SUMMARY | ~2020-03-28 | XMS | Encounter Summary ---
Demographics + + + | Address | [address] | | | [place] [address] | + + + | Home Phone [...] Team Providers + +------+ + | Care Mobile Paramedical Examiner Name | Role | Phone | [...] | Transcriptions | + + | Interface, Integrated Circuit Ic Layout Designer In - 09/19/2005 9:05 PM PST Date: | | 10/08/2003Attending Surgeon: Marguerite Araujo M.D.Vulcanizer Operator(s): | | Stas Menjivar M.D.Preoperative Diagnosis(es):Right [...] recoveryroom in stable condition.Marguerite Araujo, | | [facility] / [id number] / [id number] / [id number] / T: 10/08/2003 | |a clean granulating [...] | | | |JEMarcus / [place] | |[id number] / [id number] / [id number] / | | | | | + + OPERATION RECORD (10/08/2003) + + | Transcriptions | + + | Interface, Integrated Circuit Ic Layout Designer In - 09/19/2005 9:05 PM PST Date: | | 10/08/2003Attending Surgeon: Lloyd Garcia M.D.Vulcanizer Operator(s): | | Benson Boone M.D. Stas [...] | from the OR table to the [facility] with the hipsflexed and abduction pillow in place and | | brought from the Operating Room tothe Recovery Room in stable and satisfactory condition | | having tolerated theprocedure well without apparent complication. All counts were | | reportedcorrect prior to leaving the Operating Room. There were no apparenthypotensive | | episodes or other anesthetic difficulties.Lloyd Garcia M.D.Miller Head Assistant Wet Process, | | Orthopedics and Rehabilitation / [id number] / [id number] / [id number] / T: | | 10/08/2003 | |tube [...] | | | |Lloyd Garcia M.D. | |Miller Head Assistant Wet Process, Orthopedics and Rehabilitation | | | | / | |[id number] / [id number] / [id number] / | | | | | + + OPERATION RECORD (10/05/2003) + + | Transcriptions | + + | Interface, Integrated Circuit Ic Layout Designer In - 09/19/2005 9:05 PM PST Date: | | 10/05/2003Attending Surgeon: Lloyd Garcia M.D.Vulcanizer Operator(s): | | Benson Boone M.D.Preoperative Diagnosis(es):Right [...] | case.Benson Boone M.D.Lloyd Garcia M.D.RT / [id number] / [id number] / [id number] / 06940X: | | 10/05/2003T: 10/05/2003 | |flap for [...] | | | |RT / HS | |[id number] / [id number] / [id number] / 79116 | | | | | + + documented in this encounter Visit Diagnoses Not on filedocumented in this encounter"
--- OUTSIDE RECORDS SUMMARY | ~2020-03-28 | XMS | Encounter Summary ---
Demographics + + + | Address | [address] | | | [place] [address] | + + + | Home Phone [...] Team Providers + +------+ + | Care Atlassian Administrator Name | Role | Phone | [...] | | CT INJ | Roxann Ayala [facility] | | | | | SACROILIAC | [place], [place] | 10th Floor | | | | | JOINT | [address] | [place], [place] | | | | | W/NEEDLE | Phone: | [address] | | | | | PLCMT | [phone] | Phone: | | | | | | Fax: | [phone] | | | | | | [phone] | Fax: | | | | | | | [phone] | +--------+--------+ + + + + Reason [...] | | | | | | | [address] | | | | | | | Phone: | | | | | | | [phone] | | | | | | | Fax: | | | | | | | [phone] | +--------+--------+ + + + + Encounter [...] | | | | Mailcode: [id number] | [place], [place] | | | | | [facility] | [address] | | | | | [place], [place] | [phone] | | | | | [address] | | | | | | [phone] | | | +--------+---------+ + + + [...] SACROILIAC JOINT W/NEEDLE PLCMT (10/12/2009 10:08 AM [facility]) + + + + + + | [...] | | | | | | the manager technical support. | | | | | | Dredge Mate imaging was | | | | | [...]
--- OUTSIDE RECORDS SUMMARY | ~2020-03-28 | XMS | Encounter Summary ---
Demographics + + + | Address | [address] | | | [place] [address] | + + + | Home Phone [...] Providers + +------+ + | Care Line Repairer Tower Name | Role | Phone | + [...] | | | [address] | [address] [place], [place] | | | | | Mailcode: PV430 | [address] | | | | | [facility] | | | | | | [place], [place] | | | | | | [address] | | | | | | [phone] | | | +--------+ + + + [...] 10/30/99 | | | | | | [id number] hours. | | | | | | Dictated 11/01/99. | | | | | | FINDINGS: There is a | | | | | | shallow right rotatory | | | | | | lumbar convexity. | | | | | | [id number] S1 flexion | | | | | [...]
--- OUTSIDE RECORDS SUMMARY | ~2020-03-28 | XMS | Encounter Summary ---
Demographics + + + | Address | [address] | | | [place] [address] | + + + | Home Phone [...] Providers + +------+ + | Care Senior Wealth Advisor Name | Role | Phone | [...] as of this encounter Progress Notes Interface, Requirements Engineer In - 04/28/2005 10:57 PM PDTClinic Date: [...] resolved, and she attributes to eating a Moroccan pork and vegetable lap dish called [employer]. Physical Examination General: Shelby is in good [...] drain is in place. Lloyd Garcia M.D. Wood Model Builder-Orthopedics and Rehabilitation / SALE[place] [id number] / [id number] / [id number] / cc: Everett Guillen M.D. [address] [place] [address] [id number] signed by Interface, Requirements Engineer In at 04/28/2005 10:57 PM PDTdocumented in this encounter Plan of Treatment Not on filedocumented as of this encounter Visit Diagnoses Not on filedocumented in this encounter"
--- OUTSIDE RECORDS SUMMARY | ~2020-03-28 | XMS | Encounter Summary ---
Demographics + + + | Address | [address] | | | [place] [address] | + + + | Home Phone [...] Team Providers + +------+ + | Care Crimper Operator Name | Role | Phone | [...] Pavilion | | | | | | [place], [place] | | | | | | [address] | | | | | | [phone] | | | +--------+ + + + [...]
--- OUTSIDE RECORDS SUMMARY | ~2020-03-28 | XMS | Encounter Summary ---
Demographics + + + | Address | [address] | | | [place] [address] | + + + | Home Phone [...] Team Providers + +------+ + | Care Mineral Resources Inspector Name | Role | Phone | [...] | | | Osteoarthros | | [address] [facility] | | | | | is, | RICHARD | [address] | | | | | unspecified | [facility] | Rd [place], | | | | | whether | [facility] [address] | [place] | | | | | generalized | [address] | [address] | | | | | or | [place], | Phone: | | | | | localized, | [place] [address] | [phone] | | | | | pelvic | Phone: | Fax: | | | | | region and | [phone] | [phone] | | | | | thigh | Fax: | | | | | | | [phone] | | +--------+--------+ + + + + [...] Terrence | | | | | | [place], [place] | | | | | | [address] | | | | | | [phone] | | | +--------+---------+ + + + [...] agree with the note. TYRONE COLBY MD [facility] [address] [place] [address] Mailcode: [id number] [place] [address] esfaye Saenz PA-C - 01/20/2009 [...] CRP pending. Offered to refer her to [facility] pain clinic if she would like opinion [...] DEPARTMENT OF | [address] | [place] [address] | | | PATHOLOGY | [address] | | | + + + + + | [facility] DEPARTMENT OF | [address] | [place] [address] | | | PATHOLOGY | [address] | | | + + + + + SEDIMENTATION RATE (01/20/2009 10:02 AM PDT) + +-------+ + + + | Component | Value | Ref Range | Performed | Pathologist | | | | | At | Signature | + +-------+ + + + | SEDIMENTATI | 16 | <21 mm/hr | [facility] | | | ON RATE | | [...] [facility] | [address] [facility] | [place] [address] | | | PATHOLOGY | [address] | | | + + + + + | [facility] | [facility] | [place] [address] | | | PATHOLOGY | [address] [...] Change effective 10/26/08 | | | [facility] | | | [place] [address] | | | [place] [address] | | + + + + + + + + | Performing | Address | City/State/Zipcode | Phone Number | | Organization | | | | + + + + + | [facility] | [address] | [place] [address] | | | LABORATORY | | | | + + + + + documented in this encounter Visit Diagnoses + + | Diagnosis | + + | Hip pain Pain in joint, pelvic region and thigh | + + | Hip replacement Hip joint replacement by other means | + + documented in this encounter"
--- OUTSIDE RECORDS SUMMARY | ~2020-03-28 | XMS | Encounter Summary ---
Demographics + + + | Address | [address] | | | [place] [address] | + + + | Home Phone [...] Team Providers + +------+ + | Care Linoleum Installer Name | Role | Phone | + +------+ + PCP | Unavailable | + +------+ + Encounter Details +--------+ + + + + | Date | Type | Department | Care Team | Description | +--------+ + + + + | 11/22/ | Results | | Other, Faculty | | | 2003 | Only | | [phone] | | +--------+ + + + + [...] + + + | [facility] | [address] | [place] [address] | | | LAB-MICRO | | | [...] + + + | [facility] | [address] | [place] [address] | | | LAB-MICRO | | | [...] | + + + + + | [facility] | [address] | [place] [address] | | | LAB-MICRO | | | [...] | + + + + + | [facility] | [address] | [place] [address] | | | LAB-MICRO | | | [...] | + + + + + | [facility] | [address] | [place] [address] | | | LAB-MICRO | | | [...] | + + + + + | [facility] | [address] | [place] [address] | | | LAB-MICRO | | | [...] + + + | [facility] | [address] | [place] [address] | | | LAB-MICRO | | | | + + + + + documented in this encounter Visit Diagnoses Not on filedocumented in this encounter"
--- OUTSIDE RECORDS SUMMARY | ~2020-03-28 | XMS | Encounter Summary ---
Demographics + + + | Address | [address] | | | [place] [address] | + + + | Home Phone [...] Providers + +------+ + | Care Data Sme Name | Role | Phone | [...] Pavilion | | | | | | [place], [place] | | | | | | [address] | | | | | | [phone] | | | +--------+ + + + [...]
--- OUTSIDE RECORDS SUMMARY | ~2020-03-28 | XMS | Encounter Summary ---
Demographics + + + | Address | [address] | | | [place] [address] | + + + | Home Phone [...] Team Providers + +------+ + | Care Motion Picture Narrator Name | Role | Phone | + +------+ + | Marta Jenkins STATION HELPER | PCP | | + +------+ [...] [id number] | | | | | | [place], [place] | | | | | | [address] | | | | | | [phone] | | | +--------+ + + + [...]
--- OUTSIDE RECORDS SUMMARY | ~2020-03-28 | XMS | Encounter Summary ---
Demographics + + + | Address | [address] | | | [place] [address] | + + + | Home Phone [...] Providers + +------+ + | Care Insurance Claim Representative Name | Role | Phone | + +------+ + PCP | Unavailable | + +------+ + Encounter Details +--------+ + + + + | Date | Type | Department | Care Team | Description | +--------+ + + + + | 11/22/ | Results | Orthopaedics at | Peng Muro | | | 2003 | Only | [facility] [address] MD,PhD [address] | | | | | [address] | [address] | | | | | Mailcode: PV430 | [place], [place] | | | | | [facility] | [address] | | | | | [place], [place] | [phone] | | | | | [address] | | | | | | [phone] | | | +--------+ + + + [...]
--- OUTSIDE RECORDS SUMMARY | ~2020-03-28 | XMS | Encounter Summary ---
Demographics + + + | Address | [address] | | | [place] [address] | + + + | Home Phone [...] Team Providers + +------+ + | Care Drier Take Off Tender Name | Role | Phone | [...] | | | with BMI of | [place], | [place], | | | | | 50.0-59.9, | [place] [address] | [place] [address] | | | | | adult (HCC) | Phone: | Phone: | | | | | Procedures | [phone] | [phone] | | | | | MELVI | Fax: | Fax: | | | | | Nutrition | [phone] | [phone] | | | | | Counseling | [...] | Opinion | | Unilateral | Marta, ROOFING SUPERINTENDENT | [place] [address] | | | | | primary | [address] | | | | | osteoarthrit | | [place], [place] | | | | | is, left hip | [place], | [address] | | | | | Pain in | [place] [address] | Phone: | | | | | left hip | Phone: | [phone] | | | | | Unilateral | [phone] | Fax: | | | | | primary | Fax: | [phone] | | | | | osteoarthrit | [phone] | | | | | | is, left | | | | | | | hip, Pain in | | | | | | | left hip | | | +--------+ + + + + + Encounter Details +--------+---------+ + + + | Date | Type | Department | Care Team | Description | +--------+---------+ + + + | 07/08/ | Office | [facility] | Jasper Medrano, | Primary | | 2019 | Visit | [place] [address] [address] | [address] | osteoarthritis of | | | | [address]VD [place], [place] | [place], [place] | left hip (Primary | | | | [address] | [address] | Dx); Left hip pain; | | | | [phone] | | H/O total hip | | [...] ; Surg andrés: Rustam Schmid MD; Location: [facility] MAIN [place] Social History Tobacco Use Smoking [...] loosening or subsidence. However this is a vbxwr-ea-hbwzd prosthesis. Did not seem to be any significant ostial lysis around either of the components. There is evidence in the femur of previously removed hardware. 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 The left hip shows severe ovmx-ag-xoii arthritis without any evidence of residual joint space. There is prominent sclerosis and marginal osteophyte formation and subchondral cyst formation. The visualized lumbar spine show significant degenerative changes. Jasper Medrano MD Assessment and Plan ICD-10-CM ICD-9-CM 1. Primary osteoarthritis of left hip M16.12 715.15 2. Left hip pain M25.552 719.45 XR Hip Bilateral 2 Views CBC with Differential Chromium level [place] Prealbumin Sedimentation Rate C-Reactive Protein Nutrition Referral [...] [place] | | | | | | [address] | | | | | | | [...] REFERENCE | | | | performed at [facility];[address] | | LAB | | | | [place] | | [facility] | | | | [address];[place] [address] | | LABORATORY | | + + + + + + + + | Specimen | + + | Blood | + + + + + + + | Performing | Address | City/State/Zipcode | Phone Number | | Organization | | | | + + + + + | REFERENCE LAB | [address] [place], [place] [address] | [place] | [phone] | | [facility] | [address] | [address] | | | LABORATORY | | | | + + + + + | REFERENCE LAB | [address] [place] [address] | [place] | | | [facility] | [address] | [address] | | | LABORATORY | | | [...] [facility] | | | | Bl[address];[place] [address] | | LABORATORY | | + + + + + + + + | Specimen | + + | Blood | + + + + + + + | Performing | Address | City/State/Zipcode | Phone Number | | Organization | | | | + + + + + | REFERENCE LAB | [address] [place] [address] | [place] | [phone] | | [facility] | [address] | [address] | | | LABORATORY | | | | + + + + + | REFERENCE LAB | [address] [facility] | [place] | | | [facility] | [address] | [address] | | | LABORATORY | | | [...] | | [facility] | | | | Blvd;[place] [address] | | LABORATORY | | + + + + + + + + | Specimen | + + | Blood | + + + + + + + | Performing | Address | City/State/Zipcode | Phone Number | | Organization | | | | + + + + + | REFERENCE LAB | [address] [place] [address] | [place] | [phone] | | [facility] | [address] | [address] | | | LABORATORY | | | | + + + + + | REFERENCE LAB | [address] [place] [address] | [place] | | | [facility] | [address] | [address] | | | LABORATORY | | | | + + + + + [place] (07/29/2019 10:58 AM PDT) + + + + + + | Component | Value | Ref Range | Performed | Pathologist | | | | | At | Signature | + + + + + + | [place], | None DetectedComment: | 0.0 - 0.9 ug/L | REFERENCE | | | Ser/Plas | This test was developed | | LAB | | | | and its performance | | [facility] | | | | characteristicsdetermine | | LABORATORY | | | | d by [employer]. It has not | | | | [...] | | | | | | [place] [address] | | | | + + + + + + + + | Specimen | + + | Blood | + + + + + + + | Performing | Address | City/State/Zipcode | Phone Number | | Organization | | | | + + + + + | REFERENCE LAB | [address] [place] [address] | [place], [place] | [phone] | | [facility] | [address] | [address] | | | LABORATORY | | | | + + + + + | REFERENCE LAB | [address] [place] [address] | [place], [place] | | | [facility] | [address] | [address] | | | LABORATORY | | | [...] [place] | | | | | | [address] | | | | + + + + + + + + | Specimen | + + | Blood | + + + + + + + | Performing | Address | City/State/Zipcode | Phone Number | | Organization | | | | + + + + + | REFERENCE LAB | [address] [place] [address] | [place] | [phone] | | [facility] | [address] | [address] | | | LABORATORY | | | | + + + + + | REFERENCE LAB | [address] [place] [address] | [place], [place] | | | [facility] | [address] | [address] | | | LABORATORY | | | [...] | | | Absolute | performed at [facility];[address] | [address] | LAB | | | | [place] | | [facility] | | | | [address];[place] [address] | | LABORATORY | | + + + + + + + + | Specimen | + + | Blood | + + + + + + + | Performing | Address | City/State/Zipcode | Phone Number | | Organization | | | | + + + + + | REFERENCE LAB | [address] [place] [address] | [place], [place] | [phone] | | [facility] | [address] | [address] | | | LABORATORY | | | | + + + + + | REFERENCE LAB | [address] [place] [address] | [place], [place] | | | [facility] | Blvd[address] | [address] | | | LABORATORY | | | [...] | | subsidence. However this is a nyquu-bd-xfpcr prosthesis. Did not | | | seem to be any significant ostial lysis around either of the | | | components. There is evidence in the femur of previously removed | | | hardware. 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 The left hip shows severe fail-me-gvqc | | | arthritis without any evidence [...]
--- OUTSIDE RECORDS SUMMARY | ~2020-03-28 | XMS | Encounter Summary ---
Demographics + + + | Address | [address] | | | [place] [address] | + + + | Home Phone [...] Providers + +------+ + | Care Boat Outboard Engine Mechanic Name | Role | Phone | [...] [facility] | | | | | | [address] | | | | | | Loop Physician's | | | | | | [place], [address] [place] [address] | | | | | | [place], [place] | | | | | | [address] | | | | | | [phone] | | | +--------+ + + + [...] | + + + +---------+--------+ + | [place]-3 Fatty | Take by mouth. | | [...]
--- OUTSIDE RECORDS SUMMARY | ~2020-03-28 | XMS | Encounter Summary ---
Demographics + + + | Address | [address] | | | [place] [address] | + + + | Home Phone [...] + +------+ + | Care Director Of Physical Security Name | Role | Phone | + [...] [facility] | | | | | | [address] | | | | | | Loop Physician's | | | | | | [place], [facility] Floor | | | | | | [place], [place] | | | | | | [address] | | | | | | [phone] | | | +--------+ + + + [...] + + + +---------+ + + | [place]-3 Fatty | Take by mouth. | | [...] / | | | | | | OMSHE FLOWERS | | | | + + [...]
--- OUTSIDE RECORDS SUMMARY | ~2020-03-28 | XMS | Encounter Summary ---
Demographics + + + | Address | [address] | | | [place] [address] | + + + | Home Phone | | + + + | Preferred Language | Unknown | + + + | Marital Status | | + + + | Caodaism Affiliation | [id number] | + + + | Race | Unknown | + + + | Ethnic Group | Unknown | + + + Author + + + | Author | [facility] | | | and [place] | + + + | Organization | [facility] | | [...] Providers + +------+ + | Care Product Architect Name | Role | Phone | [...] + | 08/02/ | Office | [facility] | Ladarius Martínez PA | MAMADOU on CPAP (Primary | | 2013 | Visit | SLEEP DISORDER [address] | [address] | Dx) | | | | [address] [place] | [place], [place] | | | | | [place] [address] | [address] | | | | | [phone] | | | +--------+---------+ + + + [...] S9 obtained from: [facility] [place] Pressure: 9-16 cm 95%: 13.6 cm Maximum: [...] would like to get her equipment from [facility] [place] instead of [facility]. Review of Systems Objective: Physical [...] months, sooner prn. Thirty minutes were spent luku-et-ildh, wi th the majority of time spent in counseling. Ladarius Martínez PA-C cc: Dr. Barry documented in this enco unter Miscellaneous Notes Miscellaneous - ONBASE SCAN [facility] - 08/02/2014 12:00 AM PST iscellaneous - [facility]BASE SCAN [facility] - 08/02/2014 12:00 AM PSTEle ctronically signed [...] [place] | | | | | | [address] | | | | | | | | +--------+---------+ + + + documented as of this encounter Visit Diagnoses + + | Diagnosis | + + | MAMADOU on CPAP - Primary Obstructive sleep apnea (adult) (pediatric) | + + documented in this encounter"
--- OUTSIDE RECORDS SUMMARY | ~2020-03-28 | XMS | Encounter Summary ---
Demographics + + + | Address | [address] | | | [place] [address] | + + + | Home Phone [...] Team Providers + +------+ + | Care Tractor Driver Teamster Name | Role | Phone | + [...] as of this encounter Discharge Summaries Interface, Press Washer In 02/27/2006 3:05 AM PDTAdmission Date: 09/13/2003 [...] Benson Boone M.D. Lloyd Garcia M.D. RT:[id number] signed by Interface, Press Washer In at 02/27/2006 3:05 AM [facility] this encounter Plan of Treatment Not on filedocumented as of this encounter Visit Diagnoses Not on filedocumented in this encounter"
--- OUTSIDE RECORDS SUMMARY | ~2020-03-28 | XMS | Encounter Summary ---
Demographics + + + | Address | [address] | | | [place] [address] | + + + | Home Phone [...] Providers + +------+ + | Care Outreach Professional Name | Role | Phone | [...] Rd | | | | | | [place], [place] | | | | | | [address] | | | +--------+ + + + [...]
--- OUTSIDE RECORDS SUMMARY | ~2020-03-28 | XMS | Encounter Summary ---
Demographics + + + | Address | [address] | | | [place] [address] | + + + | Home Phone [...] Team Providers + +------+ + | Care Covered Buckle Assembler Name | Role | Phone | [...] as of this encounter Progress Notes Interface, Case Picker In - 04/15/2006 1:11 AM PDTCLINIC DATE: [...] age and her obesity. Lloyd Garcia M.D. Sql Engineer of Orthopedics and Rehabilitation / [id number] / [id number] / [id number] / cc: Rinaldi M.D. [address], [place] [id number] signed by Interface, Case Picker In at 04/15/2006 1:1 1 AM PDTInterface, Case Picker In - 04/15/2006 1:11 AM PDTCLINIC DATE: [...] her injection. MD Lloyd Merritt M.D. / [id number] / [id number] / [id number] / Tdocumented in this encounter Plan of Treatment Not on filedocumented as of this encounter Visit Diagnoses Not on filedocumented in this encounter"
--- OUTSIDE RECORDS SUMMARY | ~2020-03-28 | XMS | Encounter Summary ---
Demographics + + + | Address | [address] | | | [place] [address] | + + + | Home Phone [...] Team Providers + +------+ + | Care Caser Name | Role | Phone | [...] Procedures | Pankaj Bergman | Roxann Ayala [facility] | | | | | CT INJ | Roxann Ayala [facility], | | | | | SACROILIAC | [place], [place] | 10th Floor | | | | | JOINT | [address] | [place], [place] | | | | | W/NEEDLE | Phone: | [address] | | | | | PLCMT | [phone] | Phone: | | | | | | Fax: | [phone] | | | | | | [phone] | Fax: | | | | | | | [phone] | +--------+--------+ + + + + Encounter Details +--------+ + + + + | Date | Type | Department | Care Team | Description | +--------+ + + + + | 10/12/ | Hospital | Diagnostic Imaging | | | | 2009 | Encounter | [facility] | | | | | | [address] | | | | | | Roxann Ayala [facility] | | | | | | [address] | | | | | | [place], [place] | | | | | | [address] | | | | | | [phone] | | | +--------+ + + + [...] | | | | | | the operations support manager. | | | | | | Digital Advisor imaging was | | | | | [...]
--- OUTSIDE RECORDS SUMMARY | ~2020-03-28 | XMS | Encounter Summary ---
Demographics + + + | Address | [address] | | | [place] [address] | + + + | Home Phone [...] Team Providers + +------+ + | Care Landscaping Manager Name | Role | Phone | [...] as of this encounter Progress Notes Interface, Courtesy Car Driver In - 08/16/2006 1:10 AM PSTCLINIC DATE: [...] be requiring surgical intervention. Lloyd Garcia M.D. Pool Installer of Orthopedics and Rehabilitation / [id number] / [id number] / [id number] / cc: Helio Noland M.D. Juan JoseJuan Jose [place], [place] [address]Vlahhleltpfptw signed by Interface, Courtesy Car Driver In at 08/16/2006 1: 10 AM PSTdocumented in this encounter Plan of Treatment Not on filedocumented as of this encounter Visit Diagnoses Not on filedocumented in this encounter"
--- OUTSIDE RECORDS SUMMARY | ~2020-03-28 | XMS | Encounter Summary ---
Demographics + + + | Address | [address] | | | [place] [address] | + + + | Home Phone [...] Team Providers + +------+ + | Care Maxillofacial Prosthodontist Name | Role | Phone | + +------+ + | Marta Jenkins LEAD ADVISOR | PCP | | + +------+ [...] | Jamie Mailcode: [address] [place], | | | | | [place], [place] | [place] [address] | | | | | [address] | | | | | | [phone] | | | +--------+ + + + [...]
--- OUTSIDE RECORDS SUMMARY | ~2020-03-28 | XMS | Encounter Summary ---
Demographics + + + | Address | [address] | | | [place] [address] | + + + | Home Phone [...] Team Providers + +------+ + | Care Form Carpenter Name | Role | Phone | [...] | | | | | osteoarthrit | [address] | [address] | | | | | is of left | Pankaj Bergman | Yasmany Gil | | | | | hip | Roxann Ayala | Mailcode: | | | | | Procedures | [place], [place] | Center for | | | | | CONSULT TO | [address] | Health and | | | | | BARIATRIC | Phone: | Healing, | | | | | SURGERY | [phone] | Building [address] | | | | | | Fax: | [place], [place] | | | | | | [phone] | [address] | | | | | | | Phone: | | | | | | | | | | | | | | Fax: | | | | | | | [phone] | +--------+--------+ + + + + Reason [...] | | | | | | Jamie [place], | | | | | | | [place] | | | | | | | [address] | | | | | | | Phone: | | | | | | | [phone] | | | | | | | Fax: | | | | | | | [phone] | +--------+--------+ + + + + Encounter [...] | | Healing [address] | [place], [place] | Dx); Left hip pain; | | | | Ave Mailcode: | [address] | Smoking; Chronic | | | | [address] [place] for | [phone] | obstructive | | | | Health and Healing, | | pulmonary disease, | | | | Building 12th | | unspecified COPD | | | | Floor [place], [place] | | type ([facility]); Class 3 | | | | [address] | | severe obesity with | | | | [phone] | | body mass index | | [...] | | | | | ([facility]) | +--------+---------+ + + + [...] might be different fro m the original. [facility] OF ORTHOPAEDICS & REHABILITATION Adult Reconstruction [...] W-FE,OTHER MIN (CENTRUM ORAL), Take by mouth. Inyokern-3 Fatty Acids-Vitamin E (FISH OIL) 1,000 mg [...] The patient was offered a referral to [facility], for non-surgical and potentially surgical [...]
--- OUTSIDE RECORDS SUMMARY | ~2020-03-28 | XMS | Encounter Summary ---
Demographics + + + | Address | [address] | | | [place] [address] | + + + | Home Phone [...] Providers + +------+ + | Care Sap Portal Developer Name | Role | Phone | [...] | | | | [address] | [facility] | | | | | Mailcode: PV430 | [place], [place] | | | | | [facility] | [address] | | | | | [place], [place] | [phone] | | | | | [address] | | | | | | [phone] | | | +--------+ + + + [...]
--- OUTSIDE RECORDS SUMMARY | ~2020-03-28 | XMS | Encounter Summary ---
Demographics + + + | Address | [address] | | | [place] [address] | + + + | Home Phone [...] Providers + +------+ + | Care First Responder Name | Role | Phone | + [...] as of this encounter Progress Notes Interface, Student Development Dean In - 04/28/2005 10:57 PM PDTClinic Date: [...] not need a refill. Lloyd Garcia M.D. Mineralogy Teacher of Orthopedics and Rehabilitation / [id number] / [id number] / [id number] / [id number] cc: Leonel Floyd M.D. [address] [place], [place] [address]Qashjiynlvxuvm signed by Interface, Student Development Dean In at 04/28/2005 10:57 PM PDTdocumented in this encounter Plan of Treatment Not on filedocumented as of this encounter Visit Diagnoses Not on filedocumented in this encounter"
--- OUTSIDE RECORDS SUMMARY | ~2020-03-28 | XMS | Encounter Summary ---
Demographics + + + | Address | [address] | | | [place] [address] | + + + | Home Phone [...] + +------+ + | Care Manager Of Change Name | Role | Phone | + [...]
--- OUTSIDE RECORDS SUMMARY | ~2020-03-28 | XMS | Encounter Summary ---
Demographics + + + | Address | [address] | | | [place] [address] | + + + | Home Phone [...] Providers + +------+ + | Care Machine Striper Name | Role | Phone | + [...] | | | | | or | [address] | Pavilion | | | | | localized, | | [place], [place] | | | | | pelvic | | [address] | | | | | region and | | Phone: | | | | | thigh | | [phone] | | | | | Intervertebr | | Fax: | | | | | al lumbar | | [phone] | | | | | disc | [...] | [facility] [address] | [address] [facility] | Hip (Primary Dx) | | | | [address] | [address] [place], | | | | | Mailcode: PV430 | [place] [address] | | | | | [facility] | | | | | | [place], [place] | | | | | | [address] | | | | | | [phone] | | | +--------+---------+ + + + [...]
--- OUTSIDE RECORDS SUMMARY | ~2020-03-28 | XMS | Encounter Summary ---
Demographics + + + | Address | [address] | | | [place] [address] | + + + | Home Phone [...] Providers + +------+ + | Care Heavy Equipment Sales Associate Name | Role | Phone | [...] Procedures | Pankaj Bergman | Roxann Ayala [facility] | | | | | CT INJ | Roxann Ayala [facility], | | | | | SACROILIAC | [place], [place] | 10th Floor | | | | | JOINT | [address] | [place], [place] | | | | | W/NEEDLE | Phone: | [address] | | | | | PLCMT | [phone] | Phone: | | | | | | Fax: | [phone] | | | | | | [phone] | Fax: | | | | | | | [phone] | +--------+--------+ + + + + Reason [...] | | | | | | [address] | | | | | | | [address] | | | | | | | [place], | | | | | | | [place] | | | | | | | [address] | | | | | | | Phone: | | | | | | | [phone] | | | | | | | Fax: | | | | | | | [phone] | +--------+--------+ + + + + Encounter [...] | | | | Mailcode: PV430 | [place], [place] | | | | | Physician[facility] | [address] | | | | | [place], [place] | [phone] | | | | | [address] | | | | | | [phone] | | | +--------+---------+ + + + [...] SACROILIAC JOINT W/NEEDLE PLCMT (10/12/2009 10:08 AM [facility]) + + + + + [...] | | | | | | the postal support employee. | | | | | | Cartoon Animator imaging was | | | | | [...]
--- OUTSIDE RECORDS SUMMARY | ~2020-03-28 | XMS | Encounter Summary ---
Demographics + + + | Address | [address] | | | [place] [address] | + + + | Home Phone [...] Providers + +------+ + | Care System Support Developer Name | Role | Phone | + +------+ + PCP | Unavailable | + +------+ + Encounter Details +--------+ + + + + | Date | Type | Department | Care Team | Description | +--------+ + + + + | 11/22/ | Results | | Other, Faculty | | | 2003 | Only | | [phone] | | +--------+ + + + + [...] + + + | [facility] | [address] | [place] [address] | | | LAB-MICRO | | | [...] + + + | [facility] | [address] | [place] [address] | | | LAB-MICRO | | | [...] | + + + + + | [facility] | [address] | [place] [address] | | | LAB-MICRO | | | [...] + + + + | [facility] | [address] | [place] [address] | | | LAB-MICRO | | | [...] + + + + | [facility] | [address] | [place] [address] | | | LAB-MICRO | | | [...] + + + + | [facility] | [address] | [place] [address] | | | LAB-MICRO | | | [...] + + + | [facility] | [address] | [place] [address] | | | LAB-MICRO | | | | + + + + + documented in this encounter Visit Diagnoses Not on filedocumented in this encounter"
--- OUTSIDE RECORDS SUMMARY | ~2020-03-28 | XMS | Encounter Summary ---
Demographics + + + | Address | [address] | | | [place] [address] | + + + | Home Phone [...] as of this encounter Progress Notes Interface, Christmas Tree Contractor In - 2006 1:06 AM PDTCLINIC DATE: 06/24/2003 ORTHOPEDIC CLINIC HISTORY: This is a 43-year-old obese female followed for right hip degenerative joint disease, returns to clinic today having had no relief after her last 2 fluoroscopically guided cortisone injections on October 05, 2002, and January 26, 2003. The x-rays at that time revealed smgkocce-af-liybumjy degenerative joint disease. I confirmed that the [...] She does continue to drive in from [place] for her care here. She continues to [...] times per day. PHYSICAL EXAMINATION GENERAL: A etpdkkcm-lq-qubcjycw obese short statured woman who ambulates with [...] authorization has been obtained. Lloyd Garcia M.D. Evaluation Analyst of Orthopedics and Rehabilitation / [id number] / [id number] / [id number] / cc: Ninfa Guillen M.D. [address] [place] [address] [id number] signed by Interface, Christmas Tree Contractor In at 2006 1:06 AM [facility] umented in this encounter Plan of Treatment Not on filedocumented as of this encounter Visit Diagnoses Not on filedocumented in this encounter"
--- OUTSIDE RECORDS SUMMARY | ~2020-03-28 | XMS | Encounter Summary ---
Demographics + + + | Address | [address] | | | [place] [address] | + + + | Home Phone [...] Team Providers + +------+ + | Care Healthcare Representative Name | Role | Phone [...] as of this encounter Progress Notes Interface, Belt Polisher In - 04/15/2006 1:11 AM PDTCLINIC DATE: [...] age and her obesity. Lloyd Garcia M.D. Tear Down Matcher of Orthopedics and Rehabilitation / [id number] / [id number] / [id number] / cc: Rinaldi M.D. [address], [place] [address]Usegrmrgucmjel signed by Interface, Belt Polisher In at 04/15/2006 1:1 1 AM PDTInterface, Belt Polisher In - 04/15/2006 1:11 AM PDTCLINIC DATE: [...] her injection. MD Lloyd Merritt M.D. / [id number] / [id number] / [id number] / Tdocumented in this encounter Plan of Treatment Not on filedocumented as of this encounter Visit Diagnoses Not on filedocumented in this encounter"
--- OUTSIDE RECORDS SUMMARY | ~2020-03-28 | XMS | Encounter Summary ---
Demographics + + + | Address | [address] | | | [place] [address] | + + + | Home Phone [...] Providers + +------+ + | Care Commercial Collections Driver Name | Role | Phone | [...] as of this encounter Progress Notes Interface, Spark Plug Tester In - 09/08/2006 1:11 AM PSTCLINIC DATE: [...] evaluation. Lloyd Garcia MD / [id number] / [id number] / [id number] / cc: Matthew Garcia MD [address] [place], [place] [address]Rnsrnwbdeqrhuw signed by Interface, Spark Plug Tester In at 09/08/2006 1:11 AM PSTdocumented in this encounter Plan of Treatment Not on filedocumented as of this encounter Visit Diagnoses Not on filedocumented in this encounter"
--- OUTSIDE RECORDS SUMMARY | ~2020-03-28 | XMS | Encounter Summary ---
Demographics + + + | Address | [address] | | | [place] [address] | + + + | Home Phone [...] Team Providers + +------+ + | Care Rack Loader Name | Role | Phone | [...] as of this encounter Progress Notes Interface, Hydrographer In - 04/28/2006 3:06 AM PDTCLINIC DATE: 09/24/2002 ORTHOPEDIC CLINIC SUBJECTIVE: A 42-year-old obese female follows for right hip endstage degenerative joint disease. She returns to clinic today stating that her hip is bothering her again. Her last injection was 6 months ago in February 2002. It lasted approximately 5 months. [facility]. She takes Celebrex, multivitamin, and uses a [...] fluoroscopically-guided hip injections closer to home in [place], [place], and come here when she fails to respond to schedule her total hip replacement at that time. She seems to prefer to drive across the [place] for her care. Lloyd Garcia M.D. Owner Spa Director, Orthopedics and Rehabilitation / [id number] / [id number] / [id number] / [id number] cc: Ninfa Guillen M.D. [address] [place], [place] [address]Mmyynfhxfvauqo signed by Interface, Hydrographer In at 04/28/2006 3:0 6 AM PDTInterface, Hydrographer In - 04/28/2006 3:06 AM PDTCLINIC DATE: [...] have to return all the way to [facility] from [place], [place]. Shruti Manjarrez MD AM / [id number] / [id number] / [id number] / [id number] cc: Ninfa Guillen M.D. [address] [place], [place] [address]Dsiwsyvdvflbnz signed by Interface, Hydrographer In at 04/28/2006 3:0 6 AM PDTdocumented in this encounter Plan of Treatment Not on filedocumented as of this encounter Visit Diagnoses Not on filedocumented in this encounter"
--- OUTSIDE RECORDS SUMMARY | ~2020-03-28 | XMS | Encounter Summary ---
Demographics + + + | Address | [address] | | | [place] [address] | + + + | Home Phone [...] Team Providers + +------+ + | Care Raisin Separator Operator Name | Role | Phone | [...] as of this encounter Progress Notes Interface, Still Operator Whiskey In - 06/19/2006 1:01 AM PDT [place] [facility] [place] [address], [place] [address] FAX Department of Orthopaedics, [facility] [employer] [id number] October 15, 2001 Lloyd Garcia M.D. Department of Orthopedics and Rehabilitation/[facility] PV-430 RE: SHELBY GALDAMEZ MR #: [id number] DOS: 10/15/[address] Desai: Thank you [...] Sincerely, Kalyan Wu M.D. TE / HS [id number] / [id number] / [id number] / [id number] cc: Chan Krishna M.D. Department of Orthopedics and Rehabilitation/[facility] OP-31 Helio Noland M.D. [address] [place], [place] [address]Vhmciwiwqfkmfb signed by Interface, Still Operator Whiskey In at 06/19/2006 1: 01 AM PDTdocumented in this encounter Plan of Treatment Not on filedocumented as of this encounter Visit Diagnoses Not on filedocumented in this encounter"
--- OUTSIDE RECORDS SUMMARY | ~2020-03-28 | XMS | Encounter Summary ---
Demographics + + + | Address | [address] | | | [place] [address] | + + + | Home Phone [...] Providers + +------+ + | Care Assistant Professor Of Nursing Name | Role | Phone | + [...] + + | 04/25/ | Office | [facility] | Ladarius Martínez PA | MAMADOU on CPAP (Primary | | 2016 | Visit | SLEEP DISORDER [address] | [address] | Dx) | | | | [address] [place] | [place] | | | | | [place] [address] | [address] | | | | | [phone] | | | +--------+---------+ + + + [...] mask obtained from: [facility] [place] Pressure: 9-16 cm Median: 11.6 cm 95%: [...] Exam Assessment: Problem #1: OBSTRUCTIVE SLEEP APNEA ([id number]) This is controlled with CPAP, but she [...] months, sooner prn. Fifteen minutes were spent ncgj-ft-yevq, w ith the majority of time spent [...] [place] | | | | | | [id number] | | | | | | | | +--------+---------+ + + + documented as of this encounter Visit Diagnoses + + | Diagnosis | + + | MAMADOU on CPAP - Primary Obstructive sleep apnea (adult) (pediatric) | + + documented in this encounter"
--- OUTSIDE RECORDS SUMMARY | ~2020-03-28 | XMS | Encounter Summary ---
Demographics + + + | Address | [address] | | | [place] [address] | + + + | Home Phone [...] Team Providers + +------+ + | Care Midwife Name | Role | Phone | [...] [place] | | | | | | [address] | | | | | | [phone] | | | +--------+ + + + [...]
--- OUTSIDE RECORDS SUMMARY | ~2020-03-28 | XMS | Encounter Summary ---
Demographics + + + | Address | [address] | | | [place] [address] | + + + | Home Phone [...] Providers + +------+ + | Care Adhesive Bonding Machine Operator Name | Role | Phone [...] [address] | | | | | | [address] [place] | | | | | | [address] | | | | | | [place], [place] | | | | | | [address] | | | | | | [phone] | | | +--------+ + + + [...]
--- OUTSIDE RECORDS SUMMARY | ~2020-03-28 | XMS | Encounter Summary ---
Demographics + + + | Address | [address] | | | [place] [address] | + + + | Home Phone [...] Team Providers + +------+ + | Care Pari Mutuel Ticket Seller Name | Role | Phone | [...] as of this encounter Progress Notes Interface, Gse Mechanic In - 04/28/2005 10:57 PM PDTClinic [...] not need a refill. Lloyd Garcia M.D. Cold Storage Supervisor of Orthopedics and Rehabilitation / [id number] / [id number] / [id number] / [id number] cc: Leonel Floyd M.D. [address] [place], [place] [address]Pfvevtmvxgfysn signed by Interface, Gse Mechanic In at 04/28/2005 10:57 PM PDTdocumented in this encounter Plan of Treatment Not on filedocumented as of this encounter Visit Diagnoses Not on filedocumented in this encounter"
--- OUTSIDE RECORDS SUMMARY | ~2020-03-28 | XMS | Encounter Summary ---
Demographics + + + | Address | [address] | | | [place] [address] | + + + | Home Phone | | + + + | Preferred Language | Unknown | + + + | Marital Status | | + + + | Baptism Affiliation | 1076 | + + + | Race | Unknown | + + + | Ethnic Group | Unknown | + + + Author + + + | Author | [facility] | | | and [place] | + + + | Organization | [facility] | | [...] + +------+ + | Care Mainspring Former Brace End Name | Role | Phone | [...] | | [address] | Y, Electronics Department Manager | Morbid obesity with | | | | [place], [place] | | BMI of 50.0-59.9, | | | | [address] | | adult (HCC) | | | | [phone] | | | +--------+ + + + [...] [place] | | | | | | [address] | | | | | | | [...] | | | Absolute | performed at [facility];[address] | [address] | LAB | | | | [place] | | [facility] | | | | [address];[place] [address] | | LABORATORY | | + + + + + + + + | Specimen | + + | Blood | + + + + + + + | Performing | Address | City/State/Zipcode | Phone Number | | Organization | | | | + + + + + | REFERENCE LAB | [address] [facility] [address] | [place] | [phone] | | [facility] | [address] | [address] | | | LABORATORY | | | | + + + + + | REFERENCE LAB | [address] [facility] | [place] | | | [facility] | Bl[address] | [address] | | | LABORATORY | | | [...] | | | | | [place] | | | | | | [address] | | | | + + + + + + + + | Specimen | + + | Blood | + + + + + + + | Performing | Address | City/State/Zipcode | Phone Number | | Organization | | | | + + + + + | REFERENCE LAB | [address] | [place] | [phone] | | [facility] | [address] | [address] | | | LABORATORY | | | | + + + + + | REFERENCE LAB | [address] | [place] | | | [facility] | Blvd[address] | [address] | | | LABORATORY | | | | + + + + + [place] (07/29/2019 10:58 AM PDT) + + + + + + | Component | Value | Ref Range | Performed | Pathologist | | | | | At | Signature | + + + + + + | [place], | None DetectedComment: | 0.0 - 0.9 ug/L | REFERENCE | | | Ser/Plas | This test was developed | | LAB | | | | and its performance | | [facility] | | | | characteristicsdetermine | | LABORATORY | | | | d by [facility]. It has not | | | [...] | | | | | performed at [facility], [address] | | | | | | [facility] | | | | | | [place] [address] | | | | + + + + + + + + | Specimen | + + | Blood | + + + + + + + | Performing | Address | City/State/Zipcode | Phone Number | | Organization | | | | + + + + + | REFERENCE LAB | [address] [place] [address] | [place], [place] | [phone] | | [facility] | [address] | [address] | | | LABORATORY | | | | + + + + + | REFERENCE LAB | [address] [place] [address] | [place] | | | [facility] | Blvd[address] | [address] | | | LABORATORY | | | [...] | | [facility] | | | | Blvd;[place] [address] | | LABORATORY | | + + + + + + + + | Specimen | + + | Blood | + + + + + + + | Performing | Address | City/State/Zipcode | Phone Number | | Organization | | | | + + + + + | REFERENCE LAB | [address] [place] [address] | [place], [place] | [phone] | | [facility] | [address] | [address] | | | LABORATORY | | | | + + + + + | REFERENCE LAB | [address] [place] [address] | [place], [place] | | | [facility] | Blvd[address] | [address] | | | LABORATORY | | | [...] REFERENCE | | | | performed at [facility];[address] | | LAB | | | | [place] | | [facility] | | | | [place] [address] | | LABORATORY | | + + + + + + + + | Specimen | + + | Blood | + + + + + + + | Performing | Address | City/State/Zipcode | Phone Number | | Organization | | | | + + + + + | REFERENCE LAB | [address] [place] [address] | [place] | [phone] | | [facility] | [address] | [address] | | | LABORATORY | | | | + + + + + | REFERENCE LAB | [address] [place] [address] | [place] | | | [facility] | Bl[address] | [address] | | | LABORATORY | | | [...] REFERENCE | | | | performed at [facility];[address] | | LAB | | | | [place] | | [facility] | | | | [address];[place] [address] | | LABORATORY | | + + + + + + + + | Specimen | + + | Blood | + + + + + + + | Performing | Address | City/State/Zipcode | Phone Number | | Organization | | | | + + + + + | REFERENCE LAB | [address] | [place] | [phone] | | [facility] | [address] | [address] | | | LABORATORY | | | | + + + + + | REFERENCE LAB | [address] | [place] | | | [facility] | Blvd[address] | [address] | | | LABORATORY | | | | + + + + + documented in this encounter Visit Diagnoses + + | Diagnosis | + + | Left hip pain Pain in joint, pelvic region and thigh | + + | Morbid obesity with BMI of 50.0-59.9, adult (HCC) | + + documented in this encounter"
--- OUTSIDE RECORDS SUMMARY | ~2020-03-28 | XMS | Encounter Summary ---
Demographics + + + | Address | [address] | | | [place] [address] | + + + | Home Phone [...] Team Providers + +------+ + | Care Estimator Binding Name | Role | Phone | [...] PPV | | | | | | [address] | | | | | | Loop Physician's | | | | | | [place], [address] [place] [address] | | | | | | [place], [place] | | | | | | [address] | | | | | | [phone] | | | +--------+ + + + [...] | + + + +---------+--------+ + | [place]-3 Fatty | Take by mouth. | | [...]
--- OUTSIDE RECORDS SUMMARY | ~2020-03-28 | XMS | Encounter Summary ---
Demographics + + + | Address | [address] | | | [place] [address] | + + + | Home Phone [...] Team Providers + +------+ + | Care Pyridine Recovery Operator Name | Role | Phone | [...] + + | 01/20/ | Telephone | [facility] | Xiang Sepulveda, | Appointment | | 2020 | | [facility] | DO [address] | | | | | [address]OLOG[address] | [place], [place] | | | | | [address] | [address] | | | | | [place], [place] | | | | | | [address] | | | | | | [phone] | | | +--------+ + + + [...] Miscellaneous Notes Telephone Encounter - Antonella Sprague, Claim Attorney - 01/21/2020 2:26 PM PDTCalled and left [...] [place] | | | | | | [address] | | | | | | | | +--------+---------+ + + + documented as of this encounter Visit Diagnoses Not on filedocumented in this encounter"
--- OUTSIDE RECORDS SUMMARY | ~2020-03-28 | XMS | Encounter Summary ---
Demographics + + + | Address | [address] | | | [place] [address] | + + + | Home Phone [...] Providers + +------+ + | Care Director Compliance Name | Role | Phone | + [...] as of this encounter Progress Notes Interface, Scaling Machine Operator In - 07/14/2006 1:10 AM PDTCLINIC [...] in the system. Dariana Champion M.A. / [id number] / [id number] / [id number] / Watt Scaling Machine Operator In - 07/10/2006 1:00 AM PDTCLINIC [...] insurance at and spoke with Timbo. This equal opportunity representative stated that this prescription had been [...] over the phone. Dariana Champion M.A. / [id number] / [id number] / [id number] / Tdocumented in this encounter Plan of Treatment Not on filedocumented as of this encounter Visit Diagnoses Not on filedocumented in this encounter"
--- OUTSIDE RECORDS SUMMARY | ~2020-03-28 | XMS | Encounter Summary ---
Demographics + + + | Address | [address] | | | [place] [address] | + + + | Home Phone [...] Providers + +------+ + | Care Software Support Analyst Name | Role | Phone | [...] | Transcriptions | + + | Interface, Tag Stringer In - 02/27/2006 3:05 AM PDT Date: | | 09/27/2003Attending Surgeon: Lloyd Garcia M.D.Outer Diameter Technician(s): | | Benson Boone M.D.Preoperative Diagnosis:Right hip [...] Boone M.D.Lloyd Garcia M.D.RT / | | [id number] / [id number] / [id number] / [id number]: 09/27/2003T: 09/28/2003 | |( ) which was [...] | | | |RT / HS | |[id number] / [id number] / [id number] / [id number] | | | | | + + OPERATION RECORD (09/25/2003) + + | Transcriptions | + + | Interface, Tag Stringer In - 02/27/2006 3:05 AM PDT Date: | | 09/25/2003Attending Surgeon: Lloyd Garcia M.D.Outer Diameter Technician(s): | | MD Fox Gold, | | [...] abduction [facility] | | [...] thenbrought back to Operating Room #7 at [facility] | | [place].General endotracheal anesthesia was administered. Antibiotics werewithheld | [...] | procedure well without apparent complications.Lloyd Garcia M.D.Factory Engineer, | | Orthopedics and Rehabilitation / [id number] / [id number] / [id number] / [id number]: 09/25/2003T: | | 09/26/2003 | |plate and [...] |brought back to Operating Room #7 at [facility]. | |General endotracheal anesthesia was administered. [...] | | | |Lloyd Garcia M.D. | |Factory Engineer, Orthopedics and Rehabilitation | | | | / | |[id number] / [id number] / [id number] / [id number] | | | | | + + documented in this encounter Visit Diagnoses Not on filedocumented in this encounter"
--- OUTSIDE RECORDS SUMMARY | ~2020-03-28 | XMS | Encounter Summary ---
Demographics + + + | Address | [address] | | | [place] [address] | + + + | Home Phone [...] Team Providers + +------+ + | Care Electro Tech Name | Role | Phone | + +------+ + PCP | Unavailable | + +------+ + Encounter Details +--------+ + + + + | Date | Type | Department | Care Team | Description | +--------+ + + + + | 06/06/ | Hospital | [facility] | Jared Wood MD | | | 2010 | Encounter | [facility] | [address] | | | | | CENTER [address] | [place], [place] | | | | | [facility] | [address] | | | | | [place], [place] | | | | | | [address] | | | | | | [phone] | | | +--------+ + + + [...] No tobacco or alcohol. She resides in [place]. She states she is over here visiting [...] FILI GALDAMEZ : 58 | S[facility] [id number] [id number] | ADM 06/06/11 DS 06/06/11 DEP ER | Jared Wood MD | [facility] ES: B R pt [phone] | EMERGENCY CENTER THIS REPORT IS CONFID [...] hydrocodone. Follow up with her doctor in [place]. Heat t o her back alternating with ice. Stretching. Good back mechanics. Activity as tolerated. Re turn to the ER for increased pain, weakness, worsening. Condition on discharge is good. Jared Wood MD MARGO:NLA Job ID:[id number] Doc ID:[id number] cc: Electronically Signed 06/07/11 1307 Jared Wood MD DAWITJulienABEBEFILI Carin Sea : 58 | Signed MR# [id number] ACCT# [id number] | ADM 06/06/11 DS 06/06/11 DEP ER | Jared Wood MD | [facility] ES: B R pt [phone] | EMERGENCY CENTER THIS REPORT IS CONFID [...] [place] | | | | | | [address] | | | | | | | | +--------+---------+ + + + documented as of this encounter Visit Diagnoses Not on filedocumented in this encounter"
--- OUTSIDE RECORDS SUMMARY | ~2020-03-28 | XMS | Encounter Summary ---
Demographics + + + | Address | [address] | | | [place] [address] | + + + | Home Phone [...] Team Providers + +------+ + | Care Artificial Foliage Arranger Name | Role | Phone | [...] of this encounter Progress Notes Interface, Environmental Field Professional In - 06/19/2006 1:01 AM PDTCLINIC DATE: [...] ALLERGIES: None. SOCIAL HISTORY: She lives in [facility], and she is currently not working. She [...] the appointment. Her current phone number is [phone]. At this point, we will not schedule her for a followup until we have these other appointments, and then we will have her followup with . Again, we will forward our recommendations to him. Pricilla Metcalf M.D. Kalyan Wu M.D. [facility] / [id number] / [id number] / [id number] / [id number] cc: Lloyd Garcia M.D. PV-430 docume nted in this encounter Plan of Treatment Not on filedocumented as of this encounter Visit Diagnoses Not on filedocumented in this encounter"
--- OUTSIDE RECORDS SUMMARY | ~2020-03-28 | XMS | Encounter Summary ---
Demographics + + + | Address | [address] | | | [place] [address] | + + + | Home Phone [...] Team Providers + +------+ + | Care Greige Goods Examiner Name | Role | Phone | + +------+ + | Marta Jenkins SALVAGE MACHINE OPERATOR | PCP | | + +------+ + Encounter Details +--------+ + + + + | Date | Type | Department | Care Team | Description | +--------+ + + + + | 11/19/ | Documentati | Digestive Health | Wanda López ACNP | | | 2019 | on | Center at [facility] [address] | [address] | | | | | Akil Gil | Roxann Ayala [place], | | | | | Mailcode: [place] | [place] [address] | | | | | for Health and | [phone] | | | | | [facility], [facility] [address] | | | | | | [place], [place] | | | | | | [address] | | | | | | [phone] | | | +--------+ + + + [...]
--- OUTSIDE RECORDS SUMMARY | ~2020-03-28 | XMS | Encounter Summary ---
Demographics + + + | Address | [address] | | | [place] [address] | + + + | Home Phone [...] Providers + +------+ + | Care Operations Director Name | Role | Phone | [...] | | | | JOSE | [address] [facility] | | | | | | MEDICAL | [facility] | | | | | | CLINIC [address] | [address] [place], | | | | | | [address] | [place] | | | | | | [place], [place] | [address] | | | | | | [address] | Phone: | | | | | | | [phone] | | | | | | | Fax: | | | | | | | [phone] | +--------+--------+ + + + + Encounter [...] | | | | Mailcode: [id number] | [place], [place] | Calcification; Back | | | | [facility] | [address] | Pain; Hip Pain | | | | [place], [place] | [phone] | | | | | [address] | | | | | | [phone] | | | +--------+---------+ + + + [...] and plan of care. KALYAN COLBY MD [facility] [address] [facility] [place] [phone] aRaul kasper - 8 12:04 PM PDT [...]
--- OUTSIDE RECORDS SUMMARY | ~2020-03-28 | XMS | Encounter Summary ---
Demographics + + + | Address | [address] | | | [place] [address] | + + + | Home Phone [...] Providers + +------+ + | Care Film Maker Name | Role | Phone | [...] as of this encounter Progress Notes Interface, Cartridge Feeder In - 04/28/2005 7:30 PM PDTClinic Date: [...] Mariella Camacho P.A.-C. Lloyd Garcia M.D. / [id number] / [id number] / [id number] / [id number] Tdocumented in this encounter Plan of Treatment Not on filedocumented as of this encounter Visit Diagnoses Not on filedocumented in this encounter"
--- OUTSIDE RECORDS SUMMARY | ~2020-03-28 | XMS | Encounter Summary ---
Demographics + + + | Address | [address] | | | [place] [address] | + + + | Home Phone [...] 2007 | Only | [address] | [phone] | | | | | Rd Mailcode: RPB07 | | | | | | [place], [place] | | | | | | [address] | | | | | | [phone] | | | +--------+ + + + [...]
--- OUTSIDE RECORDS SUMMARY | ~2020-03-28 | XMS | Encounter Summary ---
Demographics + + + | Address | [address] | | | [place] [address] | + + + | Home Phone | | + + + | Preferred Language | Unknown | + + + | Marital Status | | + + + | Latter-Day Affiliation | 1076 | + + + | Race | Unknown | + + + | Ethnic Group | Unknown | + + + Author + + + | Author | [facility] | | | and [place] | + + + | Organization | [facility] | | [...] Providers + +------+ + | Care Machine Precision Engraver Name | Role | Phone | [...] + + | 11/25/ | Anesthesia | [facility] | Helio Barkley | | | 2017 | Event | MED CTR OR INTRA OP | MD Tien [address] | | | | | [address] | [address] | | | | | [place] | [place] [address] | | | | | [address] | | | | | | [phone] | | | +--------+ + + + [...] request - received abx at [facility] | | | 9 | Antibiotic [...] +----+---+ + + | | 0 | York | | | | 9 | 43-degrees | | | | 5 | | | | | 0 | | | +----+---+ + + | | 0 | Quick Note | Purulent drainage per surgeon | | | 9 | | | | | 5 | | | | | 5 | | | +----+---+ + + | | 1 | York off | | | | 0 | [...] EVALUATION Shelby Galdamez 56 y.o. female 1960 [id number] Procedure(s) RIGHT URETEROSCOPY W/ LASER LITHOTRIPSY RIGHT [...] signed by Helio Barkley MD 11/25/2016 11:11 [facility] nesthesia Proc saurabh Mccarthy - Helio [...] EVALUATION Shelby Galdamez 56 y.o. female 1960 [id number] Procedure(s): RIGHT URETEROSCOPY W/ LASER LITHOTRIPSY (Right [...] [place] | | | | | | [id number] | | | | | | | [...]
--- OUTSIDE RECORDS SUMMARY | ~2020-03-28 | XMS | Encounter Summary ---
Demographics + + + | Address | [address] | | | [place] [address] | + + + | Home Phone [...] Team Providers + +------+ + | Care Lease Administration Analyst Name | Role | Phone | + +------+ + | Marta Jenkins SPLUNK DASHBOARD DEVELOPER | PCP | | + +------+ [...] | Jamie Mailcode: [address] [place], | | | | | [place], [place] | [place] [address] | | | | | [address] | | | | | | [phone] | | | +--------+ + + + [...]
--- OUTSIDE RECORDS SUMMARY | ~2020-03-28 | XMS | Encounter Summary ---
Demographics + + + | Address | [address] | | | [place] [address] | + + + | Home Phone [...] Team Providers + +------+ + | Care Paver Layer Name | Role | Phone | [...] of this encounter Progress Notes Interface, Credit Department Manager In - 08/22/2006 5:13 AM PSTCLINIC DATE: [...] Valium. PHYSICAL EXAMINATION: She ambulates with a avdailze-af-vdhite leg coxalgic gait leaning over the right [...] that they are appropriate. Lloyd Garcia MD Gis Engineer Department of Orthopaedics / [id number] / [id number] / [id number] / [id number] C: 01/19/2000 jerman cc: Helio Noland MD [place], [place] [address] [place] [id number] signed by Interface, Credit Department Manager In at 08/22/2006 5:13 AM PSTdocumented in this encounter Plan of Treatment Not on filedocumented as of this encounter Visit Diagnoses Not on filedocumented in this encounter"
--- OUTSIDE RECORDS SUMMARY | ~2020-03-28 | XMS | Encounter Summary ---
Demographics + + + | Address | [address] | | | [place] [address] | + + + | Home Phone [...] Providers + +------+ + | Care Store Leader Name | Role | Phone | [...] Terrence | | | | | | [place], [place] | | | | | | [address] | | | | | | [phone] | | | +--------+ + + + [...]
--- OUTSIDE RECORDS SUMMARY | ~2020-03-28 | XMS | Encounter Summary ---
Demographics + + + | Address | [address] | | | [place] [address] | + + + | Home Phone [...] Providers + +------+ + | Care Academic Records Specialist Name | Role | Phone | [...] Pavilion | | | | | | [place], [place] | | | | | | [address] | | | | | | [phone] | | | +--------+ + + + [...]
--- OUTSIDE RECORDS SUMMARY | ~2020-03-28 | XMS | Encounter Summary ---
Demographics + + + | Address | [address] | | | [place] [address] | + + + | Home Phone [...] Team Providers + +------+ + | Care Finish Filer Name | Role | Phone | + +------+ + | Travis Mcginnis MD | PCP | | + +------+ + Encounter Details +--------+ + + + + | Date | Type | Department | Care Team | Description | +--------+ + + + + | 07/01/ | Abstract | Orthopaedics | Note, Orthopedics | | | 2018 | | [facility] | | | | | for Health and | | | | | | Healing [address] | | | | | | [place] Mailcode: | | | | | | [facility] | | | | | | Health and Healing, | | | | | | Building | | | | | | Floor [place], [place] | | | | | | [address] | | | | | | [phone] | | | +--------+ + + + [...] Have you seen anyone for this yet? [facility] in [place]. ED 06/24 [facility] in [facility]. Has had sepsis and MRSA and need to lose 35 lbs per this office. Eugenie [facility] [phone] 07/03 via phone MRI May 2018 CT [facility]'s impax X-Ray May 2018 XR [facility]' impax CT no Ultrasound no Other imaging [...] will you be traveling for this appointment? [place] Note: If patient traveling greater than 1 hour, consider coordinating any additi onal testing or appointments. Medical Review needed? yes Reminders: ? Ask patient if they d like to sign up for SoundFithart ? Don t forget to pull in CareEveryWhere Additional Comments: documented in this encounte r Plan of Treatment Not on filedocumented as of this encounter Visit Diagnoses Not on filedocumented in this encounter
--- OUTSIDE RECORDS SUMMARY | ~2020-03-28 | XMS | Encounter Summary ---
Demographics + + + | Address | [address] | | | [place] [address] | + + + | Home Phone [...] Team Providers + +------+ + | Care Substance Abuse Clinician Name | Role | Phone | [...]
--- OUTSIDE RECORDS SUMMARY | ~2020-03-28 | XMS | Encounter Summary ---
Demographics + + + | Address | [address] | | | [place] [address] | + + + | Home Phone [...] + +------+ + | Care Watch Inspector Final Movement Name | Role | Phone | + [...] + | 04/24/ | Office | [facility] | Ladarius Martínez PA | MAMADOU on CPAP (Primary | | 2012 | Visit | SLEEP DISORDER [address] | [address] | Dx) | | | | [address] [place] | [place], [place] | | | | | [place] [address] | [address] | | | | | [phone] | | | +--------+---------+ + + + [...] Ravi obtained from: [facility] [place] pressure is: 9 cm ResMed S9: Pressure: [...] to go to [facility] [place] to get a fitting for her mask that will allow it to connect to her hose properly or make an adjustmen t to the mask that keep it connected. I will follow up again in 1 month, sooner prn. Fifteen minutes were spent xrbh-ke-imne, wi th the majority of time spent [...] [place] | | | | | | [address] | | | | | | | | +--------+---------+ + + + documented as of this encounter Visit Diagnoses + + | Diagnosis | + + | MAMADOU on CPAP - Primary Obstructive sleep apnea (adult) (pediatric) | + + documented in this encounter"
--- OUTSIDE RECORDS SUMMARY | ~2020-03-28 | XMS | Encounter Summary ---
Demographics + + + | Address | [address] | | | [place] [address] | + + + | Home Phone [...] Providers + +------+ + | Care Coil Connector Name | Role | Phone | + [...] of this encounter Progress Notes Interface, Wood Casket Maker In - 04/28/2005 7:30 PM PDTClinic Date: [...] followup is scheduled today. Lloyd Garcia M.D. Mime Artist, Orthopedics and Rehabilitation / [id number] / [id number] / [id number] / [id number] cc: Ninfa Guillen M.D. [address] [place] [address]Pffeccuvausbfe signed by Interface, Wood Casket Maker In at 04/28/2005 7:3 0 PM PDTdocumented in this encounter Plan of Treatment Not on filedocumented as of this encounter Visit Diagnoses Not on filedocumented in this encounter"
--- OUTSIDE RECORDS SUMMARY | ~2020-03-28 | XMS | Encounter Summary ---
Demographics + + + | Address | [address] | | | [place] [address] | + + + | Home Phone [...] Providers + +------+ + | Care Therapeutic Strategy Lead Name | Role | Phone | [...] | unspecified | [address] | Rd [place], | | | | | whether | [place], [place] | [place] | | | | | generalized | [address] | [address] | | | | | or | Phone: | Phone: | | | | | localized, | [phone] | [phone] | | | | | pelvic | Fax: | Fax: | | | | | region and | [phone] | [phone] | | | | | thigh | | | | | | | Osteoarthrit | | | | | | | is of Hip | | | | | | | Procedures | | | | | | | NV TOTAL HIP | | | | | | | | | | | | | | ARTHROPLASTY | | | | | | | NV | | | | | | | RECONSTRUC | | | | | | | HIP | | | | | | | SOCKET,RESEC | | | | | | | FEM HEAD | | | | | | | NV REMOVAL | | | | | | | OF ISCHIAL | | | | | | | BURSA [place] | | | | | | | [...] Pavilion | | | | | | [place], [place] | | | | | | [address] | | | | | | [phone] | | | +--------+---------+ + + + [...] [facility] [address] [place] [address] Mailcode: [id number] [place] [address] Tesfaye Haskins PA-C - 10/14/2008 [...] is being worked up now by a program mgr for this issue. OBJECTIVE: - On examination [...]
[~2020-03-28 09:18] MED LIST changes: +LIDODERM1 EACH TD; +NAPROSYN500 MG PO; +NITROFURANTOIN100 M1 PO
[2020-03-28] MEDS ORDERED: BACTRIM DS TAB1 EACH PO (11:42)
== END 2020-03-28 12:10 | disposition home or self-care (01) ==
LOC: ED 09:18
PROC: 0T9B70Z Drainage of Bladder with Drainage Device, Via Natural or Artificial Opening (ICD-10-PCS; principal; 2020-03-28)
DX: S39.012A Strain of muscle, fascia and tendon of lower back, initial encounter (principal); N30.00 Acute cystitis without hematuria; F32.9 Major depressive disorder, single episode, unspecified; I10 Essential (primary) hypertension; J44.9 Chronic obstructive pulmonary disease, unspecified; F17.200 Nicotine dependence, unspecified, uncomplicated; Z88.1 Allergy status to other antibiotic agents; Z88.5 Allergy status to narcotic agent; Z79.899 Other long term (current) drug therapy; X58.XXXA Exposure to other specified factors, initial encounter
CPT/HCPCS: 51701; 80053; 81001; 85025; 99283-25; J1885

== ENCOUNTER 2020-04-04 17:50 | Emergency (ER) | payer OTHER ==
[~2020-04-04] VITALS: Ht 162.6 cm; Wt 136.2 kg
--- OUTSIDE RECORDS SUMMARY | ~2020-04-04 | XMS | Encounter Summary ---
Demographics + + + | Address | [address] | | | [place] [address] | + + + | Home Phone | | + + + | Preferred Language | Unknown | + + + | Marital Status | Single | + + + | Caodaism Affiliation | PRE | + + + | Race | White | + + + | Ethnic Group | Not or | + + + Author + + + | Author | [facility] | + + + | Organization | [facility] | + + + | Address [...] Team Providers + +------+ + | Care Senior Director Of Global [employer] Technology Solutions Name | Role | Phone | + +------+ + | Travis Mcginnis MD | PCP | | + +------+ + Encounter Details +--------+ + + + + | Date | Type | Department | Care Team | Description | +--------+ + + + + | 09/09/ | Telephone | Orthopaedics at | Kalyan Arias MD | | | 2007 | | [facility] [address] | [address] | | | | | [address] | [address] | | | | | Mailcode: PV430 | [facility] [place] | | | | | [facility] | [address] | | | | | [place], [place] | [phone] | | | | | [address] | | | | | | [phone] | | | +--------+ + + + [...] Not on filedocumented as of this encounter Visit Diagnoses Not on filedocumented in this encounter"
--- OUTSIDE RECORDS SUMMARY | ~2020-04-04 | XMS | Encounter Summary ---
Demographics + + + | Address | [address] | | | [place] [address] | + + + | Home Phone | | + + + | Preferred Language | Unknown | + + + | Marital Status | Single | + + + | Rastafari Affiliation | PRE | + + + | Race | White | + + + | Ethnic Group | Not or | + + + Author + + + | Author | [facility] | + + + | Organization | [facility] | + + + | Address | Unknown | + + + | Phone | Unavailable | + + + Support + + + + + | Name | Relationship | Address | Phone | + + + + + | Casandra Smith | ROBERTO | [place] | | + + + + + Care Team Providers + +------+ + | Care Golf Course Laborer Name | Role | Phone | + +------+ + PCP | Unavailable | + +------+ + Encounter Details +--------+ + + + + | Date | Type | Department | Care Team | Description | +--------+ + + + + | 12/25/ | Office | [facility] | Note, Outpatient | Progress Note | | 2001 | Visit-Trans | MEDICINE | Clinic | | | | cribed | | | | +--------+ + + + [...] + + documented as of this encounter Progress Notes Interface, County Commissioner In - 06/11/2006 3:03 AM PDTCLINIC DATE: 12/25/2001 ORTHOPEDIC CLINIC HISTORY: Ms. Galdamez returns to the clinic today for follow up of low back and groin pain. She has a history of a right hip osteoarthritis. When initially seen, she had been started on Arthrotec and noted to have significantly improved pain in the low back and the right groin. This was approximately 85% improved. Workup of the lower back was included an MRI of the lumbosacral spine. This is reviewed with the patient in the clinic today. It was done in a [facility] in [facility] on December 08, 2001. There is mild disk desiccation at L3-L4 and L4-L5; otherwise, the film appears unremarkable for a neural foraminal stenosis. It does appear to be some mild facet hypertrophy at L5-S1 and L4-L5. Today, the patient notes that she continues to do well with Arthrotec. She has not been able to start physical therapy yet. She notes that she needs a new prescription for this. Most of her pain seems to be in the groin today on the right side. She is not complaining of numbness of weakness in the legs. She is ambulating with a cane. ASSESSMENT 1. Right hip osteoarthritis. 2. Mild disk degeneration with facet hypertrophy, otherwise, relatively unremarkable imaging of the lumbosacral spin. PLAN: My impression is that likely the majority of the symptoms are from the right hip. She may have some component of degenerative findings in the spine that are related to the back. However, at this point, I would not recommend more for this than physical therapy. She is written a prescription for 1 visit per week for 4 weeks to be set up with an independent exercise program. She is planning on joining a gym, and I think that this would be useful for her. I have discussed with her that should she be developing more pain in the right groin, she follow up with Dr. Garcia and/or Dr. Wu, that she is welcomed to call at anytime, and at this point, the followup will be on an as-needed basis. Vince Krishna M.D. [facility] / [id number] / [id number] / [id number] / cc: Ninfa Guillen M.D. [address] [place] [id number] Kalyan Wu M.D. [facility] Orthopedics and Rehabilitation Lloyd Garcia M.D. [facility] Orthopedics and RehabiliationElectronically signed by Interface, County Commissioner In at 0 06/11/2006 3:03 AM PDTdocumented in this encounter Plan of Treatment Not on filedocumented as of this encounter Visit Diagnoses Not on filedocumented in this encounter"
--- OUTSIDE RECORDS SUMMARY | ~2020-04-04 | XMS | Encounter Summary ---
Demographics + + + | Address | [address] | | | [place] [address] | + + + | Home Phone | | + + + | Preferred Language | Unknown | + + + | Marital Status | Single | + + + | Synagogue Affiliation | PRE | + + + | Race | White | + + + | Ethnic Group | Not or | + + + Author + + + | Author | [facility] | + + + | Organization | [facility] | + + + | Address [...] Team Providers + +------+ + | Care Stripper Soft Plastic Name | Role | Phone | + +------+ + | Marta Jenkins APPLICATION DEVELOPMENT PROJECT MANAGER | PCP | | + +------+ + Encounter Details +--------+ + + + + | Date | Type | Department | Care Team | Description | +--------+ + + + + | 11/23/ | Ancillary | Registration [id number] | Gino Baker MD | | | 2005 | Registratio | [address] [address] | [address] | | | | n | Jamie Mailcode: [id number] [place], | | | | | [place], [place] | [place] [address] | | | | | [address] | | | | | | [phone] | | | +--------+ + + + [...] | FUNGUS PRELIMINARY 1 | Routin | 11/23/2005 | | Results for this | | | e | 11:50 AM | | procedure are in the | | | | PST | | results section. | + +--------+ + + + | FUNGUS PRELIMINARY 1 | Routin | 11/23/2005 | | Results for this | | | e | 11:50 AM | | procedure are in the | | | | PST | | results section. | + +--------+ + + + | AFB PRELIM 1 | Routin | 11/23/2005 | | Results for this | | | e | 11:50 AM | | procedure are in the | | | | PST | | results section. | + +--------+ + + + | AFB PRELIM 1 | Routin | 11/23/2005 | | Results for this | | | e | 11:50 AM | | procedure are in the | | | | PST | | results section. | + +--------+ + + + | CULTURE, JOINT FLUID | Routin | 11/23/2005 | | Results for this | | (SYNOVIAL) | e | 11:50 AM | | procedure are in the | | | | PST | | results section. | + +--------+ + + + | FUNGAL SMEAR ONLY | Routin | 11/23/2005 | | Results for this | | | e | 11:50 AM | | procedure are in the | | | | PST | | results section. | + +--------+ + + + | FUNGAL SMEAR ONLY | Routin | 11/23/2005 | | Results for this | | | e | 11:50 AM | | procedure are in the | | | | PST | | results section. | + +--------+ + + + | ACID FAST BACILLI, | Routin | 11/23/2005 | | Results for this | | SMEAR ONLY | e | 11:50 AM | | procedure are in the | | | | PST | | results section. | + +--------+ + + + | ACID FAST BACILLI, | Routin | 11/23/2005 | | Results for this | | SMEAR ONLY | e | 11:50 AM | | procedure are in the | | | | PST | | results section. | + +--------+ + + + | CULTURE, FUNGAL & | Routin | 11/23/2005 | | Results for this | | SMEAR | e | 11:50 AM | | procedure are in the | | | | PST | | results section. | + +--------+ + + + | CULTURE, FUNGAL & | Routin | 11/23/2005 | | Results for this | | SMEAR | e | 11:50 AM | | procedure are in the | | | | PST | | results section. | + +--------+ + + + | CULTURE, AFB (ALL | Routin | 11/23/2005 | | Results for this | | SPEC TYPES EXCEPT | e | 11:50 AM | | procedure are in the | | BLOOD) | | PST | | results section. | + +--------+ + + + | CULTURE, AFB (ALL | Routin | 11/23/2005 | | Results for this | | SPEC TYPES EXCEPT | e | 11:50 AM | | procedure are in the | | BLOOD) | | PST | | results section. | + +--------+ + + + | CULTURE, WOUND BACTI | Routin | 11/23/2005 | | Results for this | | & GS | e | 11:50 AM | | procedure are in the | | | | PST | | results section. | + +--------+ + + + documented in this encounter Results FUNGAL SMEAR ONLY (11/23/2005 11:50 AM PST) + + + + + + | Component | Value | Ref Range | Performed | Pathologist | | | | | At | Signature | + + + + + + | CALCOFLUOR | No fungal elements seen | | | | | WHITE STAIN | | | | | | ONLY | | | | | + + + + + + | SOURCE BODY | Right Hip Joint Fluid | | | | | SITE | | | | | + + + + + + + + | Specimen | + + | | + + + + + + + | Performing | Address | City/State/Zipcode | Phone Number | | Organization | | | | + + + + + | [facility] | [address] | [place] [address] | | | LAB-MICRO | | | | + + + + + CULT, FUNGAL (& SMEAR) (11/23/2005 11:50 AM PST) + + + + + + | Component | Value | Ref Range | Performed | Pathologist | | | | | At | Signature | + + + + + + | SOURCE BODY | Right Hip Joint Fluid | | | | | SITE | | | | | + + + + + + | CULTURE | Fungus Culture | | | | | RESULT | Culture Source | | | | | | ....: Right Hip Joint | | | | | | Fluid | | | | | | Smear..............: | | | | | | No fungal elements seen | | | | | | Preliminary | | | | | | 1......: Fungus NOT | | | | | | detected at 1 week. RLB | | | | | | Final Report: Fungus | | | | | | NOT isolated after 3 | | | | | | weeks.Comment: Test | | | | | | performed at [facility] | | | | | | [facility] | | | | | | Laboratory. | | | | + + + + + + + + | Specimen | + + | | + + + + + + + | Performing | Address | City/State/Zipcode | Phone Number | | Organization | | | | + + + + + | [facility] | [address] | [place] [address] | | | LAB-MICRO | | | | + + + + + FUNGUS PRELIMINARY 1 (11/23/2005 11:50 AM PST) + + + + + + | Component | Value | Ref Range | Performed | Pathologist | | | | | At | Signature | + + + + + + | PRELIM | Fungus NOT detected at 1 | | | | | FUNGAL ISOL | week. | | | | + + + + + + + + | Specimen | + + | | + + + + + + + | Performing | Address | City/State/Zipcode | Phone Number | | Organization | | | | + + + + + | [facility] | [address] | [place] [address] | | | LAB-MICRO | | | | + + + + + AFB PRELIM 1 (11/23/2005 11:50 AM PST) + + + + + [...] + + + | [facility] | [address] | [place] [address] | | | LAB-MICRO | | | | + + + + + ACID FAST BACILLI, SMEAR ONLY (11/23/2005 11:50 AM PST) + + + + + + | Component | Value | Ref Range | Performed | Pathologist | | | | | At | Signature | + + + + + + | SOURCE BODY | Right Hip Joint Fluid | | | | | SITE | [...] + + + | [facility] | [address] | [place] [address] | | | LAB-MICRO | | | | + + + + + CULT, AFB (ALL SPECIMEN TYPES) (11/23/2005 11:50 AM PST) + + + + + + | Component | Value | Ref Range | Performed | Pathologist | | | | | At | Signature | + + + + + + | SOURCE BODY | Right Hip Joint Fluid | | | | | SITE | | | | | + + + + + + | CULTURE | Acid Fast Bacilli | | | | | RESULT | Culture | | | | | | Source.............: | | | | | | Right Hip Joint Fluid | | | | | | RLB FA Stain...........: | | | | | | [...] | | | | detected at 6 | | | | | | weeks.Comment: Test | | | | | | performed at [facility] | | | | | | [facility] | | | | | | Laboratory | | | | + + + + + + + + | Specimen | + + | | + + + + + + + | Performing | Address | City/State/Zipcode | Phone Number | | Organization | | | | + + + + + | [facility] | [address] | [place] [address] | | | LAB-MICRO | | | | + + + + + CULT, JOINT FLUID (SYNOVIAL) (11/23/2005 11:50 AM PST) + + + + + + | Component | Value | Ref Range | Performed | Pathologist | | | | | At | Signature | + + + + + + | SOURCE BODY | Right Hip Joint Fluid | | | | | SITE | | | | | + + + + + + | CULTURE | Joint Fluid | | | | | RESULT | Culture | | | | | | Source...............: | | | | | | Right Hip Joint Fluid | | | | | | RLB Gram | | | | | | Stain...........: No | | | | | | Epithelial cells | | | | | | | | | | | | Rare PMN's | | | | | | | | | | | | No | | | | | | organisms seen. | | | | | | Culture: | | | | | | Preliminary Report: No | | | | | | growth after 1 day. | | | | | | Culture examined | | | | | | daily. Report will | | | | | | be updated if growth | | | | | | occurs. Final | | | | | | Report: No growth after | | | | | | 3 days. No | | | | | | anaerobes isolated | | | | | | Final ReportComment: | | | | | | Test performed at [facility] | | | | | | [facility] | | | | | | Laboratory. | | | | + + + + + + + + | Specimen | + + | | + + + + + + + | Performing | Address | City/State/Zipcode | Phone Number | | Organization | | | | + + + + + | [facility] | [address] | [place] [address] | | | LAB-MICRO | | | | + + + + + CULT, FUNGAL (& SMEAR) (11/23/2005 11:50 AM PST) + + + + + + | Component | Value | Ref Range | Performed | Pathologist | | | | | At | Signature | + + + + + + | SOURCE BODY | Right Hip | | | | | SITE | | | | | + + + + + + | CULTURE | Fungus Culture | | | | | RESULT | Culture Source | | | | | | ....: Right Hip | | | | | | Smear..............: | | | | | | No fungal elements | | | | | | seen Preliminary | | | | | | 1......: Fungus NOT | | | | | | detected at 1 week. RLB | | | | | | Final Report: Fungus | | | | | | NOT isolated after 3 | | | | | | weeks.Comment: Test | | | | | | performed at [facility] | | | | | | [facility] | | | | | | Laboratory. | | | | + + + + + + + + | Specimen | + + | | + + + + + + + | Performing | Address | City/State/Zipcode | Phone Number | | Organization | | | | + + + + + | [facility] | [address] | [place] [address] | | | LAB-MICRO | | | | + + + + + FUNGUS PRELIMINARY 1 (11/23/2005 11:50 AM PST) + + + + + + | Component | Value | Ref Range | Performed | Pathologist | | | | | At | Signature | + + + + + + | PRELIM | Fungus NOT detected at 1 | | | | | FUNGAL ISOL | week. | | | | + + + + + + + + | Specimen | + + | | + + + + + + + | Performing | Address | City/State/Zipcode | Phone Number | | Organization | | | | + + + + + | [facility] | [address] | [place] [address] | | | LAB-MICRO | | | | + + + + + FUNGAL SMEAR ONLY (11/23/2005 11:50 AM PST) + + + + + + | Component | Value | Ref Range | Performed | Pathologist | | | | | At | Signature | + + + + + + | CALCOFLUOR | No fungal elements seen | | | | | WHITE STAIN | | | | | | ONLY | | | | | + + + + + + | SOURCE BODY | Right Hip | | | | | SITE | | | | | + + + + + + + + | Specimen | + + | | + + + + + + + | Performing | Address | City/State/Zipcode | Phone Number | | Organization | | | | + + + + + | [facility] | [address] | [place] [address] | | | LAB-MICRO | | | | + + + + + ACID FAST BACILLI, SMEAR ONLY (11/23/2005 11:50 AM PST) + + + + + + | Component | Value | Ref Range | Performed | Pathologist | | | | | At | Signature | + + + + + + | SOURCE BODY | Right Hip | | | | | SITE | [...] + + + | [facility] | [address] | [place] [address] | | | LAB-MICRO | | | | + + + + + CULT, AFB (ALL SPECIMEN TYPES) (11/23/2005 11:50 AM PST) + + + + + + | Component | Value | Ref Range | Performed | Pathologist | | | | | At | Signature | + + + + + + | SOURCE BODY | Right Hip | | | | | SITE | | | | | + + + + + + | CULTURE | Acid Fast Bacilli | | | | | RESULT | Culture | | | | | | Source.............: | | | | | | Right Hip RLB FA | | | | | | Stain...........: AFB | | | | | | NOT detected. | | | | | | Preliminary 1......: | | | | | | Acid Fast Bacilli NOT | | | | | | detected at 4 weeks. | | | | | | Final Report.......: | | | | | | Acid Fast Bacilli | | | | | | NOT detected at 6 | | | | | | weeks.Comment: Test | | | | | | performed at [facility] | | | | | | [facility] | | | | | | Laboratory | | | | + + + + + + + + | Specimen | + + | | + + + + + + + | Performing | Address | City/State/Zipcode | Phone Number | | Organization | | | | + + + + + | [facility] | [address] | [place] [address] | | | LAB-MICRO | | | | + + + + + AFB PRELIM 1 (11/23/2005 11:50 AM PST) + + + + + [...] + + + | [facility] | [address] | [place] [address] | | | LAB-MICRO | | | | + + + + + CULT, WOUND BACTI & GS (11/23/2005 11:50 AM PST) + + + + + + | Component | Value | Ref Range | Performed | Pathologist | | | | | At | Signature | + + + + + + | SOURCE BODY | Right Hip | | | | | SITE | | | | | + + + + + + | CULTURE | Wound Culture | | | | | RESULT | | | | | | | Source...............: | | | | | | Right Hip RLB Gram | | | | | | Stain...........: No | | | | | | Epithelial cells | | | | | | | | | | | | No PMN's | | | | | | | | | | | | No | | | | | | organisms seen. | | | | | | Culture: | | | | | | Preliminary Report: No | | | | | | growth after 1 day. | | | | | | Culture examined | | | | | | daily. Report will | | | | | | be updated if growth | | | | | | occurs. Final | | | | | | Report: No growth after | | | | | | 3 days. Final | | | | | | ReportComment: Test | | | | | | performed at [facility] | | | | | | [facility] | | | | | | Laboratory. | | | | + + + + + + + + | Specimen | + + | | + + + + + + + | Performing | Address | City/State/Zipcode | Phone Number | | Organization | | | | + + + + + | [facility] | [address] | [place] [address] | | | LAB-MICRO | | | | + + + + + documented in this encounter Visit Diagnoses Not on filedocumented in this encounter"
--- OUTSIDE RECORDS SUMMARY | ~2020-04-04 | XMS | Encounter Summary ---
Demographics + + + | Address | [address] | | | [place] [address] | + + + | Home Phone | | + + + | Preferred Language | Unknown | + + + | Marital Status | Single | + + + | Pentecostalism Affiliation | PRE | + + + | Race | White | + + + | Ethnic Group | Not or | + + + Author + + + | Author | [facility] | + + + | Organization | [facility] | + + + | [...] Team Providers + +------+ + | Care Network Project Manager Name | Role | Phone | + +------+ + PCP | Unavailable | + +------+ + Encounter Details +--------+ + + + + | Date | Type | Department | Care Team | Description | +--------+ + + + + | 10/05/ | Results | Orthopaedics at | Lloyd Garcia MD | | | 2002 | Only | [facility] [address] | | | | | | Mailcode: [id number] | | | | | | [facility] | | | | | | [place], [place] | | | | | | [address] | | | | | | [phone] | | | +--------+ + + + [...] +--------+ + + + | X-RAY INJ HIP ARTHRO | Routin | 10/05/2002 | | Results for this | | WO ANESTHESIA | e | 10:57 AM | | procedure are in the | | | | PST | | results section. | + +--------+ + + + | X-RAY ARTHROGRAM HIP | Routin | 10/05/2002 | | Results for this | | RT | e | 10:57 AM | | procedure are in the | | | | PST | | results section. | + +--------+ + + + documented in this encounter Results INJ HIP ARTHRO WO ANESTHESIA (10/05/2002 10:57 AM PST) + + + + + + | Component | Value | Ref Range | Performed | Pathologist | | | | | At | Signature | + + + + + + | INJ HIP | Radiologist 1: | | | | | ARTHRO WO | MOSHE FLOWERS, | | | | | ANESTHESIA | M.D.-Radiologist 2: | | | | | | HUSSEIN MONET, | | | | | | M.D.INJECTION OF RIGHT | | | | | | HIP: 10/05/2002 | | | | | | Dictated 10/05/2002 | | | | | | COMPARISON: | | | | | | 02/19/2002. HISTORY: | | | | | | Osteoarthritis of the | | | | | | right hip. Request for | | | | | | injection ofsteroid and | | | | | | Marcaine. PROCEDURE: | | | | | | The benefits and risks | | | | | | of the procedure were | | | | | | explained tothe patient, | | | | | | and all questions were | | | | | | answered. Written, | | | | | | informedconsent was | | | | | | obtained. The patient | | | | | | was placed supine on | | | | | | thefluoroscopy table, | | | | | | and the right hip was | | | | | | localized using | | | | | | fluoroscopy.Using a | | | | | | 25-gauge needle, 1% | | | | | | lidocaine was used for | | | | | | local anesthesia.Under | | | | | | fluoroscopic guidance, a | | | | | | 22-gauge spinal needle | | | | | | was placed intothe hip | | | | | | joint. A 3 cc syringe | | | | | | containing 1% lidocaine | | | | | | was used fortactile | | | | | | sensation while entering | | | | | | the hip joint. | | | | | | Confirmation | | | | | | occurredby injection of | | | | | | 3 cc of Hypaque-60. A | | | | | | mixture of 5 cc | | | | | | bupivacaine and1 cc of | | | | | | Aristospan was then | | | | | | injected into the hip | | | | | | joint. The needlewas | | | | | | then removed and manual | | | | | | pressure was applied. | | | | | | No | | | | | | complicationsoccurred | | | | | | during the procedure. | | | | | | FINDINGS: Initial | | | | | | injection of contrast | | | | | | showed opacification of | | | | | | theiliopsoas bursa. | | | | | | Following | | | | | | remanipulation of needle | | | | | | placement,contrast was | | | | | | noted in the right hip | | | | | | joint. Osteoarthritic | | | | | | changes ofjoint space | | | | | | narrowing, spurring, and | | | | | | sclerosis are present, | | | | | | as before.Before the | | | | | | procedure, the patient | | | | | | stated that she had 7/10 | | | | | | pain, andpost | | | | | | procedure, the patient | | | | | | had 3/10 pain. | | | | | | IMPRESSION: Successful | | | | | | injection of bupivacaine | | | | | | and Aristospan into the | | | | | | right hipjoint with | | | | | | subjective improvement | | | | | | in pain. END OF | | | | | | IMPRESSION: | | | | + + + + + + + + | Specimen | + + | | + + + +---------+ + + | Performing | Address | City[facility] | Phone Number | | Organization | | | | + +---------+ + + | [facility] DEPARTMENT OF | | | | | RADIOLOGY | | | | + +---------+ + + ARTHROGRAM HIP RT (10/05/2002 10:57 AM PST) + + + + + + | Component | Value | Ref Range | Performed | Pathologist | | | | | At | Signature | + + + + + + | ARTHROGRAM | Radiologist 1: | | | | | HIP RT | MOSHE FLOWERS, | | | | | | M.D.-Radiologist 2: | | | | | | HUSSEIN MONET, | | | | | | M.D.INJECTION OF RIGHT | | | | | | HIP: 10/05/2002 | | | | | | Dictated 10/05/2002 | | | | | | COMPARISON: | | | | | | 02/19/2002. HISTORY: | | | | | | Osteoarthritis of the | | | | | | right hip. Request for | | | | | | injection ofsteroid and | | | | | | Marcaine. PROCEDURE: | | | | | | The benefits and risks | | | | | | of the procedure were | | | | | | explained tothe patient, | | | | | | and all questions were | | | | | | answered. Written, | | | | | | informedconsent was | | | | | | obtained. The patient | | | | | | was placed supine on | | | | | | thefluoroscopy table, | | | | | | and the right hip was | | | | | | localized using | | | | | | fluoroscopy.Using a | | | | | | 25-gauge needle, 1% | | | | | | lidocaine was used for | | | | | | local anesthesia.Under | | | | | | fluoroscopic guidance, a | | | | | | 22-gauge spinal needle | | | | | | was placed intothe hip | | | | | | joint. A 3 cc syringe | | | | | | containing 1% lidocaine | | | | | | was used fortactile | | | | | | sensation while entering | | | | | | the hip joint. | | | | | | Confirmation | | | | | | occurredby injection of | | | | | | 3 cc of Hypaque-60. A | | | | | | mixture of 5 cc | | | | | | bupivacaine and1 cc of | | | | | | Aristospan was then | | | | | | injected into the hip | | | | | | joint. The needlewas | | | | | | then removed and manual | | | | | | pressure was applied. | | | | | | No | | | | | | complicationsoccurred | | | | | | during the procedure. | | | | | | FINDINGS: Initial | | | | | | injection of contrast | | | | | | showed opacification of | | | | | | theiliopsoas bursa. | | | | | | Following | | | | | | remanipulation of needle | | | | | | placement,contrast was | | | | | | noted in the right hip | | | | | | joint. Osteoarthritic | | | | | | changes ofjoint space | | | | | | narrowing, spurring, and | | | | | | sclerosis are present, | | | | | | as before.Before the | | | | | | procedure, the patient | | | | | | stated that she had 7/10 | | | | | | pain, andpost | | | | | | procedure, the patient | | | | | | had 3/10 pain. | | | | | | IMPRESSION: Successful | | | | | | injection of bupivacaine | | | | | | and Aristospan into the | | | | | | right hipjoint with | | | | | | subjective improvement | | | | | | in pain. END OF | | | | | | IMPRESSION: | | | | + + + + + + + + | Specimen | + + | | + + + +---------+ + + | Performing | Address | City/State/Zipcode | Phone Number | | Organization | | | | + +---------+ + + | [facility] DEPARTMENT OF | | | | | RADIOLOGY | | | | + +---------+ + + documented in this encounter Visit Diagnoses Not on filedocumented in this encounter"
--- OUTSIDE RECORDS SUMMARY | ~2020-04-04 | XMS | Encounter Summary ---
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 The x-rays at that time revealed ldpwiqav-fg-vigcqcpi degenerative joint disease. I confirmed that the Depo-Medrol and bupivacaine were injected into the hip joint. The radiologist reported an improvement from 6 over 10 pain to 0 to 1 over 10 pain. Unfortunately, this was short lived. Again, the x-rays show large collar of osteophytes around the femoral head with some preserved cartilage space greater superiorly than medially. She also has some improvement in her symptoms while she was able to get Celebrex, but this has been difficult for her to obtain due to insurance reasons, and similar improvement with warm water hydrotherapy which again has been difficult to consistently obtain due to payment issues. She does continue to drive in from [facility] for her care here. She continues to smoke and reports that she has lost approximately 13 pounds, from 250 somewhat pounds initially to approximately 235 pounds today. She has a self-reported height of 5 feet 4 to 5 feet 5 inches tall. She does not specifically mention her mechanical locking symptoms today, but she had been having locking 4 to 5 times per day. PHYSICAL EXAMINATION GENERAL: A ptfpjfbu-se-wrllotiw obese short statured woman who ambulates with a right coxalgic gait. She has predominantly truncal obesity. MUSCULOSKELETAL: Hip range of motion is 5 to 105 degrees flexion on the right with pain at the extremes of internal and external rotation, and abduction and adduction she has 30 degrees of internal and external rotation each; 15 to 20 degrees of adduction and 30 degrees of abduction. Left hip range of motion is 0 to 120 degrees of flexion, 60 degrees of external rotation, 30 degrees of internal rotation, 60 degrees abduction, and 30 adduction. The pain that she experiences at the extremes of motion on the right hip she localizes directly to the groin. DIAGNOSTIC DATA: X-rays: As above. ASSESSMENT: Advanced hip degenerative joint disease in 43-year-old obese female. DISPOSITION: At this point, I believe that she is no longer obtaining adequate pain relief with nonoperative means. We certainly would like her to be back on her anti-inflammatory analgesics and exercise program, continue with weight loss, continue to use the cane as she does, but I believe that she might benefit from a chilectomy as impinging osteophytes appear to be the predominant feature of her symptoms at this time. This certainly is worth the attendant risks of avascular necrosis, and surgery in that at her young age hip replacement would be something we would want to delay as long as possible. We have given her a prescription for hip DJD aqua therapy treatment program to be done 3 times per week on an extended basis. She will schedule her surgery once authorization has been obtained. Lloyd Garcia M.D. [facility] / [id number] / [id number] / [id number] / cc: Ninfa Guillen M.D. [address] [place] [address] [id number] signed by Interface, Warehouse General Laborer In at 2006 1:06 AM [facility] this encounter Plan of Treatment Not on filedocumented as of this encounter Visit Diagnoses Not on filedocumented in this encounter"
--- OUTSIDE RECORDS SUMMARY | ~2020-04-04 | XMS | Encounter Summary ---
Demographics + + + | Address | [address] | | | [place] [address] | + + + | Home Phone [...] Team Providers + +------+ + | Care Quality Assurance Monitor Final Name | Role | Phone | + +------+ + PCP | Unavailable | + +------+ + Encounter Details +--------+ + + + + | Date | Type | Department | Care Team | Description | +--------+ + + + + | 09/14/ | Results | | Benson Boone | | | 2002 | Only | | | | +--------+ + + [...] X-RAY HIP 2 VIEWS | Routin | 09/14/2003 | | Results for this | | RIGHT | e | 12:20 PM | | procedure are in the | | | | PST | | results section. | + +--------+ + + + documented in this encounter Results HIP 2 VIEWS RIGHT (09/14/2003 12:20 PM PST) + + + + + + | Component | Value | Ref Range | Performed | Pathologist | | | | | At | Signature | + + + + + + | HIP 2 VIEWS | Radiologist 1: ARMANDO, | | | | | RIGHT | Malcom ALVAREZ-Radiologist | | | | | | 2: KIM ROBERTS | | | | | | MalcomSTUDY: AN AP VIEW OF | | | | | | THE RIGHT HIP | | | | | | COMPARISON: 08/30/2003 | | | | | | DISCUSSION: Since prior | | | | | | study of the two | | | | | | intertrochanteric | | | | | | cannulated screws | | | | | | havebeen removed. The | | | | | | greater trochanteric | | | | | | osteotomy has been | | | | | | realignedand secured | | | | | | with a lateral hook and | | | | | | plate anchored with two | | | | | | proximaland distal | | | | | | screws. There is | | | | | | normal postoperative | | | | | | alignment with | | | | | | noevidence of hardware | | | | | | complication. The left | | | | | | hip joint is obscured | | | | | | byoverlying soft | | | | | | tissues. Surgical | | | | | | drains and skin graciela | | | | | | are noted. IMPRESSION: | | | | | | 1. Revision of the | | | | | | hardware fixing the | | | | | | greater trochnateric | | | | | | ostotomywith lateral | | | | | | plate and screw | | | | | | fixation. No evidence | | | | | | of hardwarepublication. | | | | + + + + + + + + | Specimen | + + | | + + + +---------+ + + | Performing | Address | City/State/Zipcode | Phone Number | | Organization | | | | + +---------+ + + | [facility] DEPARTMENT OF | | | | | RADIOLOGY | | | | + +---------+ + + documented in this encounter Visit Diagnoses Not on filedocumented in this encounter"
--- OUTSIDE RECORDS SUMMARY | ~2020-04-04 | XMS | Encounter Summary ---
Demographics + + + | Address | [address] | | | [place] [address] | + + + | Home Phone | | + + + | Preferred Language | Unknown | + + + | Marital Status | Single | + + + | Mormonism Affiliation | PRE | + + + | Race | White | + + + | Ethnic Group | Not or | + + + Author + + + | Author | [facility] | + + + | Organization | [facility] | + + + | Address [...] Team Providers + +------+ + | Care Sewing Techniques Demonstrator Name | Role | Phone | + +------+ + | Yuki Pantoja MD | PCP | | + +------+ + Encounter Details +--------+ + + + + | Date | Type | Department | Care Team | Description | +--------+ + + + + | 06/21/ | [place] | Orthopaedics at | Kalyan Colby MD | Osteoarthritis of | | 2008 | | [address] [address] | [address] | Hip (Primary Dx) | | | | [address] | [address] | | | | | Mailcode: [id number] | [place], [place] | | | | | [facility] | [address] | | | | | [place], [place] | [phone] | | | | | [address] | | | | | | [phone] | | | +--------+ + + + [...] 2 VIEWS RIGHT W/ PELVIS 1 VIEW (07/07/2009 12:17 PM PDT) + + + + + + | Component | Value | Ref Range | Performed | Pathologist | | | | | At | Signature | + + + + + + | X-RAY HIP 2 | Med Rec No: [id number] | | | | | VIEWS | Name: | | | | | RIGHT W/ | SHELBY GALDAMEZ | | | | | PELVIS 1 | Birthday: 1960 | | | | | VIEW | Sex: F | | | | | | Alias:Patient Location: | | | | | | [id number]: Outpatient | | | | | | ActiveOrdering | | | | | | Physician: KALYAN | | | | | | SABINE COLBY HIP 2 | | | | | | VIEWS RIGHT W/ PELVIS 1 | | | | | | VIEW completed on | | | | | | 07/07/200912:17 | | | | | | PMAccession # | | | | | | [id number]:PELVIS | | | | | | ONE VIEW WITH RIGHT HIP | | | | | | TWO VIEWS: 07/07/2009 | | | | | | Dictated | | | | | | 07/07/2009COMPARISON: | | | | | | 12/16/2008.FINDINGS: | | | | | | On the right, there is | | | | | | a noncemented total | | | | | | hiparthroplasty with | | | | | | greater trochanteric | | | | | | basket, plate, and | | | | | | cerclagewire. There is | | | | | | superior displacement | | | | | | of the greater | | | | | | trochantericfragment.The | | | | | | left hip joint is | | | | | | maintained. The | | | | | | sacroiliac joints are | | | | | | notentirely included in | | | | | | the study. The | | | | | | symphysis pubis is | | | | | | preserved.There is no | | | | | | soft tissue | | | | | | abnormality.IMPRESSION:U | | | | | | nchanged alignment and | | | | | | appearance of right | | | | | | total hip | | | | | | arthroplastywith no | | | | | | evidence of hardware | | | | | | failure or loosening. | | | | | | Unchangedappearance of | | | | | | greater trochanteric | | | | | | plate, screw, and | | | | | | cerclage wirefixation | | | | | | with displaced greater | | | | | | trochanteric | | | | | | fragment.END | | | | | | IMPRESSION:I have | | | | | | personally viewed this | | | | | | procedure/exam and | | | | | | reviewed this report.I | | | | | | have personally viewed | | | | | | this procedure/exam and | | | | | | reviewed this | | | | | | report.Author: MOSHE | | | | | | LIONEL | | | | | | MAshantiReviewer: MOSHE | | | | | | Malcom FLOWERSSTATUS | | | | | | FINAL / Dr. MESA | | | | | | LIONELSTATUS | | | | | | PRELIMINARY - UNSIGNED / | | | | | | Dr. MOSHE FLOWERS | | | | + + + [...]
--- OUTSIDE RECORDS SUMMARY | ~2020-04-04 | XMS | Encounter Summary ---
Demographics + + + | Address | [address] | | | [place] [address] | + + + | Home Phone [...] Author + + + | Author | [facility] | + + + | Organization | [facility] | + + + | [...] Team Providers + +------+ + | Care Fiber Glass Worker Name | Role | Phone | + [...] Procedures | Pankaj Bergman | [facility] | | | | | CT INJ | [facility], | | | | | SACROILIAC | [place], [place] | 10th Floor | | | | | JOINT | [address] | [place], [place] | | | | | W/NEEDLE | Phone: | [address] | | | | | PLCMT | [phone] | Phone: | | | | | | Fax: | [phone] | | | | | | [phone] | Fax: | | | | | | | [phone] | +--------+--------+ + + + + Reason [...] | | | | | | | [address] | | | | | | | [address] | | | | | | | [place], | | | | | | | [place] | | | | | | | [address] | | | | | | | Phone: | | | | | | | [phone] | | | | | | | Fax: | | | | | | | [phone] | +--------+--------+ + + + + Encounter [...] | | | | Mailcode: [id number] | [place], [place] | | | | | [facility] | [address] | | | | | [place], [place] | [phone] | | | | | [address] | | | | | | [phone] | | | +--------+---------+ + + + [...] SACROILIAC JOINT W/NEEDLE PLCMT (10/12/2009 10:08 AM [facility]) + + + + + + | [...] | | | | | | the administrative support assoc. | | | | | | [facility] was | | | | | [...]
--- OUTSIDE RECORDS SUMMARY | ~2020-04-04 | XMS | Encounter Summary ---
Demographics + + + | Address | [address] | | | [place] [address] | + + + | Home Phone | | + + + | Preferred Language | Unknown | + + + | Marital Status | Single | + + + | Lutheran Affiliation | PRE | + + + | Race | White | + + + | Ethnic Group | Not or | + + + Author + + + | Author | [facility] | + + + | Organization | [facility] | + + + | Address [...] Team Providers + +------+ + | Care Geophysics Teacher Name | Role | Phone | + +------+ + | Marta Jenkins BUSINESS OFFICE COORDINATOR | PCP | | + +------+ + Encounter Details +--------+ + + + + | Date | Type | Department | Care Team | Description | +--------+ + + + + | 11/02/ | Ancillary | Registration [id number] | | | | 2005 | Registratio | [address] | | | | | [address] | [address] Mailcode: [id number] | | | | | | [place], [place] | | | | | | [address] | | | | | | [phone] | | | +--------+ + + + [...]
--- OUTSIDE RECORDS SUMMARY | ~2020-04-04 | XMS | Encounter Summary ---
Demographics + + + | Address | [address] | | | [place] [address] | + + + | Home Phone | | + + + | Preferred Language | Unknown | + + + | Marital Status | | + + + | Denominational Affiliation | 1076 | + + + | Race | Unknown | + + + | Ethnic Group | Unknown | + + + Author + + + | Author | [facility] | | | and [place] | + + + | Organization | [facility] | | | [...] Team Providers + +------+ + | Care Storekeeper Helper Name | Role | Phone | + +------+ + | Jaimie Monreal MD | PCP | | + +------+ + Reason for Visit +--------+--------+ + | Reason | Onset | Comments | | | Date | | +--------+--------+ + | Other | 07/31/ | Appointment note | | | 2019 | | +--------+--------+ + Encounter Details +--------+ + + + + | Date | Type | Department | Care Team | Description | +--------+ + + + + | 07/31/ | Telephone | [facility] | Xiang Sepulveda, | Other (Appointment | | 2019 | | [facility] | DO [address] | note ) | | | | [address] | [place], [place] | | | | | [address] | [address] | | | | | [place], [place] | | | | | | [address] | | | | | | [phone] | | | +--------+ + + + [...] this encounter Miscellaneous Notes Telephone Encounter - Melyssa Ott, Sawmill Manager - 07/31/2019 11:07 AM Yuly RHODES called patient and left a voicemail to return my call. elephone Encounter - Mihaela Fulton - 07/31/2019 10:27 AM PDTShelby, is calling regarding Other (Appointment not e ) and would like a call back. Additional Call Details: Requesting note to be faxed to [phone] indicating that arabella ross did attend appointment 07/29/19 so she can get her mileage reimbursed. If this is a symptom based call, was patient offered triage? Not Applicable If this is a symptom based call and you were unable to immediately transfer the call to a yuly liz fish hatchery worker was caller made aware that if at any time she feels it is an emergency they sh ould call 911 or go to the nearest emergency room? not applicable documented in this encounter Plan of Treatment +--------+---------+ + + + | Date | Type | Specialty | Care Team | Description | +--------+---------+ + + + | 05/23/ | Office | Pain Medicine | Xiang Sepulveda, | | | 2020 | Visit | | DO [address] | | | | | | [place] | | | | | | [address] | | | | | | | | +--------+---------+ + + + documented as of this encounter Visit Diagnoses Not on filedocumented in this encounter"
--- OUTSIDE RECORDS SUMMARY | ~2020-04-04 | XMS | Encounter Summary ---
Demographics + + + | Address | [address] | | | [place] [address] | + + + | Home Phone | | + + + | Preferred Language | Unknown | + + + | Marital Status | Single | + + + | Baptism Affiliation | PRE | + + + | Race | White | + + + | Ethnic Group | Not or | + + + Author + + + | Author | [facility] | + + + | Organization | [facility] | + + + | [...] Team Providers + +------+ + | Care Odd Ticket Clerk Name | Role | Phone | + +------+ + | Marta Jenkins ORACLE FUSION DEVELOPER | PCP | | + +------+ + Encounter Details +--------+ + + + + | Date | Type | Department | Care Team | Description | +--------+ + + + + | 12/30/ | Ancillary | Registration [id number] | [address], | | | 2006 | Registratio | [address] | [address] | | | | n | [address] Mail[address]: [id number] | [address] | | | | | [place], [place] | [place], [place] | | | | | [address] | [address] | | | | | [phone] | [phone] | | | | | | | [...]
--- OUTSIDE RECORDS SUMMARY | ~2020-04-04 | XMS | Encounter Summary ---
Demographics + + + | Address | [address] | | | [place] [address] | + + + | Home Phone [...] + | Casandra Smith | ROBERTO | [place] | | + + + + + Care Team Providers + +------+ + | Care Certified Adaptive Physical Educator Name | Role | Phone | + +------+ + PCP | Unavailable | + +------+ + Encounter Details +--------+ + + + + | Date | Type | Department | Care Team | Description | +--------+ + + + + | 10/01/ | Orders Only | | Record, Operation | | | 2004 | | | | | +--------+ + [...] + + | OPERATION RECORD | | 10/01/2003 | | Results for this | | | | | | procedure are in the | | | | | | results section. 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 Right hip irrigation, | | debridement.2. Gluteus medius tendon reattachment with bone tunnels.3. Insertion | | of wound VAC.Anesthesia:General endotracheal anesthetic.Fluids:IV fluids 1900, | | [place].Estimated Blood Loss:100 cc.Urine | | Output:None.Complications:Specimens:None.Findings:1. A healthy viable gluteus medius | | tendon.2. Viable tensor fascia lv that was retracted proximally.3. Viable | | adipose tissue.4. Approximately 12- to 14-cm incision that comes together from the | | anterior two-thirds to the posterior aspect.History:Denice is a 43-year-old woman who | | is known to our Orthopedic Service. Sheunderwent a right hip cheilectomy on July | | 2002 via [facility]. It was complicated by greater trochanter hardware | | failure withavulsion of the proximal fragment. She underwent ORIF using the [place] | | plate on September 13, 2003. The patient then was complicated by righthip infection and | | was taken back to [place] on September 25, 2003, where she hada hip irrigation and debridement | | and removal of hardware. She subsequentlyunderwent 2 other wound VAC changes on | | September 27, 2003, August, was demonstrating that the infection had subsided | | and her tissueswere free of gross purulent drainage. She was then started on | | nafcillin,Cipro, and Flagyl for Staph aureus as well as gram-negative bacilli. Sheis | | consented today for a repeat hip I and D with right hip abductor | | primaryrepair.Indications:Procedure:The patient was properly identified in the preop | | holding area and taken Dilip room #8. She was placed in the supine position where she | | had a generalendotracheal anesthetic placed. Once this was completed, she was put inthe | | left lateral decubitus position on the beanbag. The old wound VAC andcovering adhesive | | dressing was removed. The soft tissues were viable withno evidence of gross purulence. | | The hip was then prepped and draped innormal sterile fashion.Attention was then turned | | to the open wound which was irrigated with 1liter of normal saline. The soft tissues | | were cleaned free of any necroticor purulent drainage. The fascia lv as well as the | | vastus lateralis andgluteus medius tendons were all viable.The proximal fragment of the | | greater trochanter was fragmented and wascomminuted into 4 segments. However, we were | | able to identify 3 mainsegments with the gluteus medius tendon still attached.We then | | used #5 fiberwire and placed the proximal suture through 2 of themain proximal greater | | trochanter fragments. We then drilled 2 bone holesthrough the base of the greater | | trochanteric site. We then placed a third#5 fiberwire through the bone tunnels and used | | it as here distal attachmentpoint. Of note, we originally did place 2 distal bone | | tunnels; however,they were too anterior to the surface, and we had a fractured bone | | bridge.We then tied proximal and distal fiberwire segments together and observedthat the | | abductor musculature came in near proximation to the greatertrochanter. We then | | irrigated the wound again with one-half liter normalsaline. A large wound VAC was then | | placed in the fat above the fascialata. This was stapled into the wound from | | approximately 12 o'clock to 6o'clock. The skin edges were then reapproximated on the | | lateral half ofthe wound using 0 nylon in a vertical mattress fashion. The wound was | | thencovered with the appropriate plastic that would allow appropriate suctionfor the | | wound. The wound VAC setup was tested, and there was adequatesuction. The patient was | | then awakened from anesthesia, placed on astretcher, and taken to PACU area in stable | | condition.Disposition:1. The patient will go back to the floor and restarted on her | | Cipro, Flagyl, and nafcillin.2. We will have continued wound VAC changes every | | second day.3. The patient to have hip adduction precautions and will be in an | | abduction pillow and will have limited passive adduction with Physical Therapy and | | Occupational Therapy.4. The patient will wear her abduction brace while out of | | bed.Dr. Garcia was present for the morgan components of this operation.Benson Boone, | | Haleigh Garcia M.D.RT / [id number] / [id number] / [id number] / [id number]: 10/01/2003T: 10/02/2003 | |2002, was demonstrating that the infection had subsided and her tissues | |were free of gross purulent drainage. She was then started on nafcillin, | |Cipro, and Flagyl for Staph aureus as well as gram-negative bacilli. She | |is consented today for a repeat hip I and D with right hip abductor primary | |repair. | | | |Indications: | | | |Procedure: | |The patient was properly identified in the preop holding area and taken to | |OR room #8. She was placed in the supine position where she had a general | |endotracheal anesthetic placed. Once this was completed, she was put in | |the left lateral decubitus position on the beanbag. The old wound VAC and | |covering adhesive dressing was removed. The soft tissues were viable with | |no evidence of gross purulence. The hip was then prepped and draped in | |normal sterile fashion. | | | |Attention was then turned to the open wound which was irrigated with 1 | |liter of normal saline. The soft tissues were cleaned free of any necrotic | |or purulent drainage. The fascia lv as well as the vastus lateralis and | |gluteus medius tendons were all viable. | | | |The proximal fragment of the greater trochanter was fragmented and was | |comminuted into 4 segments. However, we were able to identify 3 main | |segments with the gluteus medius tendon still attached. | | | |We then used #5 fiberwire and placed the proximal suture through 2 of the | |main proximal greater trochanter fragments. We then drilled 2 bone holes | |through the base of the greater trochanteric site. We then placed a third | |#5 fiberwire through the bone tunnels and used it as here distal attachment | |point. Of note, we originally did place 2 distal bone tunnels; however, | |they were too anterior to the surface, and we had a fractured bone bridge. | | | |We then tied proximal and distal fiberwire segments together and observed | |that the abductor musculature came in near proximation to the greater | |trochanter. We then irrigated the wound again with one-half liter normal | |saline. A large wound VAC was then placed in the fat above the fascia | |lv. This was stapled into the wound from approximately 12 o'clock to 6 | |o'clock. The skin edges were then reapproximated on the lateral half of | |the wound using 0 nylon in a vertical mattress fashion. The wound was then | |covered with the appropriate plastic that would allow appropriate suction | |for the wound. The wound VAC setup was tested, and there was adequate | |suction. The patient was then awakened from anesthesia, placed on a | |stretcher, and taken to PACU area in stable condition. | | | |Disposition: | |1. The patient will go back to the floor and restarted on her Cipro, | | Flagyl, and nafcillin. | |2. We will have continued wound VAC changes every second day. | |3. The patient to have hip adduction precautions and will be in an | | abduction pillow and will have limited passive adduction with | | Physical Therapy and Occupational Therapy. | |4. The patient will wear her abduction brace while out of bed. | | | |Dr. Garcia was present for the morgan components of this operation. | | | | | | | | | |Benson Boone M.D. | | | | | | | |Lloyd Garcia M.D. | | | |RT / HS | |[id number] / [id number] / [id number] / [id number] | | | | | + + documented in this encounter Visit Diagnoses Not on filedocumented in this encounter"
--- OUTSIDE RECORDS SUMMARY | ~2020-04-04 | XMS | Encounter Summary ---
Demographics + + + | Address | [address] | | | [place] [address] | + + + | Home Phone [...] + + | Author | [facility] | + + + | Organization | [facility] | + + + | Address | Unknown | + + + | Phone | Unavailable | + + + Support + + + + + | Name | Relationship | Address | Phone | + + + + + | Casandra Smith | ROBERTO | [place] | | + + + + + Care Team Providers + +------+ + | Care Paid Intern Name | Role | Phone | + +------+ + | Marta Jenkins INDUSTRIAL SALES MANAGER | PCP | | + +------+ + Encounter Details +--------+ + + + + | Date | Type | Department | Care Team | Description | +--------+ + + + + | 06/11/ | Ancillary | Registration [id number] | Lloyd Garcia MD | | | 2005 | Registratio | [address] [facility] | | | | | n | [address] Mailcode: [id number] | | | | | | [place], [place] | | | | | | [address] | | | | | | [phone] | | | +--------+ + + + [...]
--- OUTSIDE RECORDS SUMMARY | ~2020-04-04 | XMS | Encounter Summary ---
Demographics + + + | Address | [address] | | | [place] [address] | + + + | Home Phone [...] Author + + + | Author | [facility] | + + + | Organization | [facility] | + + + | Address [...] Team Providers + +------+ + | Care Lockstitch Lining Setter Name | Role | Phone | + +------+ + | Travis Mcginnis MD | PCP | | + +------+ + Reason for Visit +---------+ + | Reason | Comments | +---------+ + | Post Op | | +---------+ + Encounter Details +--------+---------+ + + + | Date | Type | Department | Care Team | Description | +--------+---------+ + + + | 11/09/ | Office | Orthopaedics at | Tesfaye Saenz | Osteoarthritis of | | 2010 | Visit | [facility] [address] | MEGAN Evangelista | hip; Hip replacement | | | | [address] | | | | | | Mailcode: [id number] | | | | | | Phys[facility] [place] | | | | | | [place], [place] | | | | | | [address] | | | | | | [phone] | | | +--------+---------+ + + + [...] Weight | 119.3 kg (263 lb) | 11/09/2010 1:20 PM | | | | | PST | | + + + + + | Height | 162.6 cm (5' 4") | 11/09/2010 1:20 PM | | | | | PST | | + + + + + | Body Mass Index | 45.14 | 11/09/2010 1:20 PM | | | | | PST | | + + + + + documented in this encounter Progress Notes Tesfaye Saenz PA-C - 11/09/2010 2:15 PM PST SUBJECTIVE Shelby Galdamez was seen today about 3 weeks postop. She complains of moderate hip pain that is fairly well controlled at this point with Lamar. She has been wbat and is overall doing well. She has not yet been doing physical therapy. No fever, chills, wound issues. She had her graciela removed locally. She has been on IV anbx per ID and is tolerating them without issues. She is also seeing Elvia Putnam today for anbx guidance. OBJECTIVE: - Vitals: Ht 162.6 cm (5' 4")( < 3 %ile), Wt 119.296 kg (263 lbs)( < 3 %ile), BMI 45.14 kg/ (m^2). - Incision is healing well without signs of infection. Incision is clean and dry. No eryt joseph or drainage. - There is a moderate amount of swelling locally at the hip and mild swelling distally in t he right LE. No localized tenderness in the lower leg. - Patient walks with a Trendelenburg gait - 5/5 strength throughout right LE - Sensation intact throughout right LE X-RAYS Postop xrays were reviewed with patient. New xrays were not performed in clinic today. ASSESSMENT: -Ms. Shelby Galdamez is a 50 year old female about 3 weeks s/p I&D JUAN DAVID with hardware removal , Progressing well PLAN: - Pt is to increase activity as tolerated with continued posterior hip precautions - Patient will not begin formal PT at this time but will continue with home exercise progra m and advance walking as tolerated. - She will continue anbx per ID. - Follow up in 2wks with us and ID. - X-rays will be required at next visit (AP Pelvis (hip centered), AP/LAT hip) - Patient advised to call if increased wound erythema, drainage or any other concerns arise . No orders of the defined types were placed in this encounter. documented in this encounter Plan of Treatment Not on filedocumented as of this encounter Procedures + +--------+ + + + | Procedure Name | Priori | Date/Time | Associated Diagnosis | Comments | | | ty | | | | + +--------+ + + + | LAB REPORTS | | 11/06/2010 | | Results for this | | | | 12:00 AM | | procedure are in the | | | | PST | | results section. | + +--------+ + + + | LAB REPORTS | | 10/30/2010 | | Results for this | | | | 12:00 AM | | procedure are in the | | | | PST | | results section. | + +--------+ + + + documented in this encounter Results LAB REPORTS (11/06/2010 12:00 AM PST) + + + | Narrative | Performed At | + + + | | | + + + + + | Procedure Note | + + | Beatriz Beckett - 11/06/2010 12:00 AM PST | | | + + LAB REPORTS (10/30/2010 12:00 AM PST) + + + | Narrative | Performed At | + + + | | | + + + + + | Procedure Note | + + | Beatriz Beckett - 10/30/2010 12:00 AM PST | | | + + documented in this encounter Visit Diagnoses + + | Diagnosis | + + | Osteoarthritis of hip Osteoarthrosis, unspecified whether generalized or localized, | | pelvic region and thigh | + + | Hip replacement Hip joint replacement by other means | + + documented in this encounter
--- OUTSIDE RECORDS SUMMARY | ~2020-04-04 | XMS | Encounter Summary ---
Demographics + + + | Address | [address] | | | [place] [address] | + + + | Home Phone [...] + + + | Author | [facility] | + + + | Organization | [facility] | + + + | [...] Team Providers + +------+ + | Care Shake Feeder Name | Role | Phone | + [...] Closed | | Infectious | Diagnoses | Hugo, | Brii, | | | | Disease | Infection | Kalyan Barrientos MD | MD Dee | | | | | and | [address] | | | | | inflammatory | [address] | [place] | | | | | reaction | [address] | [address] | | | | | due to | [place], [place] | [place], | | | | | internal | [address] | [place] [address] | | | | | joint | Phone: | Phone: | | | | | prosthesis | [phone] | [phone] | | | | | ([facility]) | Fax: | Fax: | | | | | | [phone] | [phone] | +--------+--------+ + + + + Encounter Details +--------+---------+ + + + | Date | Type | Department | Care Team | Description | +--------+---------+ + + + | 05/11/ | Office | Infectious | Carolina Putnam | Infection and | | 2010 | Visit | Diseases at [facility] | KENYA ReddyC [address] | inflammatory | | | | [address] | [address] | reaction due to | | | | Loop Physician's | [place], [place] | internal joint | | | | [place], [address]rd floor | [address] | prosthesis (HCC) | | | | [place], [place] | [phone] | (Primary Dx) | | | | [address] | | | | | | [phone] | | | +--------+---------+ + + + [...] encounter Progress Notes Carolina Putnam PA-C - 05/11/2011 9:14 AM PDTFormatting of this note might be differen t from the original. INFECTIOUS DISEASES CLINIC FOLLOW UP Primary Care Physician: [address] [place] [id number] Ms. Galdamez presents to Infectious Diseases Clinic regarding scheduled follow up. The patient was seen in conjunction with Kalyan Arias MD ([facility]) today. History, other than "Interim History" below, is directly copied from previous ID notes to jessica moss continuity: Ms. 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 Fr ozen section biopsies were sent, and there was [...] 18, a nd was therefore admitted to [facility] out of concern for R hip infection. [...] was left in place. Culture data: (Note: / Tissue cultures also grew MSSA with the [...] discharged in stable condition on 10/22/2010 to [facility] with OPAT & Orthopedic follow-up planned in 2 weeks ti wi. In OPAT follow-up on 11/09/2010 Ms. Galdamez presented from home accompanied by her caregiver. She was discharged to home from the SNF after a few days there, despite concerns for her saf ety at home. She was doing well at home. She was administering IV Nafcillin without missed doses, and with no PICC line difficulties. She had been taking metronidazole as directed, wh ich she felt gave her nausea. She had 1 episode of diarrhea, none since. There were no other noticeable antibiotic side effects, and no fevers, chills, or night sweats. The R hip incis ion had healed very well. Linda had been removed, and there had been no drainage. She was weight-bearing with a walker at home, with pain improved from the time of her hospital disch arge. Rifampin was added in and IV Nafcillin continued. Oral metronidazole was stopped. In OPAT follow-up on 11/23/2010 she had completed a 6-week course of Nafcillin + 3 weeks of Rifampin. Her hip had healed. The PICC line was removed and she was transitioned to a 6-jocelyne h course of Cipro + Rifampin in hopes of iradicating her hip infection. Interim History obtained 05/11/2011: Ms. Galdamez presents today from home. She has been taking the Cipro + Rifampin combination no w for 6 months without missed doses. She has tolerated this well, without antibiotic side ef fects or lab abnormalities noted on her monthly labs. Her inflammatory markers have decline nicely. She is walking on the hip with a cane without increasing pain, swelling, erythema or sensation of shifting. She complains of back pain that at times is keeping her in bed becau se of pain. This she feels is a separate issue from her hip. She was referred to a local vannessa geon for evaluation, who has offered surgical intervention, but she wanted to check with us first. She is uncertain what procedure has been recommended. Current Medications: Current Outpatient Prescriptions Medication Sig acetaminophen 500 mg Oral Tablet [...] 600 + D ORAL) Take by mouth. ciprofloxacin (CIPRO) 750 mg Oral Tablet Take 1 Tab by mouth every twelve hours. Take u ntil gone. CYCLOBENZAPRINE HCL (CYCLOBENZAPRINE ORAL) Take by mouth. docusate sodium (DOC-Q-LACE) 100 mg Oral Capsule Take 100 mg by mouth as needed. hydrocodone-acetaminophen 7.5-325 mg Oral Tablet Take 1 Tab by mouth every four hours a s needed. Not to exceed 12 tablets per any 24 hour period. (Not to exceed 4000 mg of acetami nophen from all products per 24 hour period.) MULTIVITS W-FE,OTHER MIN (CENTRUM ORAL) Take by mouth. [place]-3 Fatty Acids-Vitamin E (FISH OIL) 1,000 mg Oral Capsule Take by mouth. omeprazole (PRILOSEC) 40 mg Oral Capsule, Delayed Release(E.C.) Take 40 mg by mouth onc e daily. rifamPIN 300 mg Oral Capsule Take 1 Cap by mouth two times daily. Allergies: Adhesive tape; Lipitor; and Sulfa (sulfonamide antibiotics) Physical Exam: VS: There were no vitals taken for this visit. (See ortho visit, same date & time) The patient was sitting comfortably at rest. There was no evidence of jaundice. There was no stigmata of infectious endocarditis HEENT was normal There was no lymphadenopathy There was no new skin or oral lesions. Wound appears well healed. Neuro exam was grossly intact Diagnostic Tests: SEDIMENTATION RATE (mm/hr) Date Value 03/01/2011 29 C-REACTIVE PROTEIN (mg/dl) Date Value 11/09/2010 < 0.5 Lab Results Component Value Date WBC 7.8 03/01/2011 RBC 4.86 03/01/2011 HB 14.1 03/01/2011 HCT 41.2 03/01/2011 MCV 85 03/01/2011 MCHC 34.2 03/01/2011 RDW 14.5 03/01/2011 PLT 367 03/01/2011 NEUTROPERC 59.2 03/01/2011 LYMPHPERC 32.5 03/01/2011 MONOPERC 6.1 03/01/2011 EOSPERC 1.5 03/01/2011 BASOPERC 0.7 03/01/2011 NEUTROPHILCO 4.6 03/01/2011 MONOCYTECO 0.5 03/01/2011 EOSCO 0.1 03/01/2011 BASOPHILCO 0.1 03/01/2011 CBCCOMMENTS Final automated differential report. Smear reviewed. 10/23/2010 Lab Results Component Value Date NA 141 03/01/2011 K 4.4 03/01/2011 CL 107 03/01/2011 BICARB 30 03/01/2011 BUN 10 03/01/2011 CR 0.7 03/01/2011 GLU 106 03/01/2011 CA 9.2 03/01/2011 AST 10 03/01/2011 ALT 14 03/01/2011 AP 72 03/01/2011 TBILI 0.3 03/01/2011 TP 7.4 03/01/2011 ALB 3.8 03/01/2011 DIRBILI < 0.1 10/04/2003 Assessment: 1) R JUAN DAVID infection (MSSA), hardware retained - improved. 2) Back pain - worsening. Recommendations/Plan: 1) Stop Cipro and rifampin now, as she has completed the recommended 6-month course of foll ow-on treatment for infection. We had a discussion about options going forward, including li fe-long suppression of infection with oral antibiotics, such as doxycycline; or stopping ant ibiotics now with a watchful stance. 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 I explained that there is the possibility t hat the infection could recur if all antibiotics are stopped. She might prevent recurrent in fection with on-going oral antibiotics. She chose stopping all antibiotics at this time, wit h a watchful stance. I reviewed the symptoms that would indicate a recurrence in the infecti on, and to contact the Infectious Disease/OPAT office if the patient thinks this is happenin chilo 2) Regarding future surgical treatment of her spine: She was asking about the utility of st eroid injections. Given her history of infection, would not recommend use of steroid injecti ons if this can be avoided, particularly over the next 3 months when she is initially off al l antibiotics. She was asking about what sounded like a kyphoplasty procedure. I do not thin k this involves steroid use, and if not, then she would enter such a procedure with prior hi story of infection, but without additional risk from an ID perspective. It is recommended that Ms. Galdamez follow up in Infectious Diseases Clinic in [place]. We are hap py to be consulted again should infectious complications arise. I spent a total of 20 minutes face to face with the patient and over 50% was time spent in counseling in which we discussed infection, antibiotics, duration of therapy, lab results, a nd follow-up planning. Carolina Putnam PA-C [facility] Department of Infectious Disease Outpatient IV Antibiotic Therapy Clinic (OPAT) Pager ID: [phone] [facility]. 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
--- OUTSIDE RECORDS SUMMARY | ~2020-04-04 | XMS | Encounter Summary ---
Demographics + + + | Address | [address] | | | [place] [address] | + + + | Home Phone | | + + + | Preferred Language | Unknown | + + + | Marital Status | Single | + + + | Congregational Affiliation | PRE | + + + [...] Team Providers + +------+ + | Care Rest Room Attendant Name | Role | Phone | + +------+ + | Marta Jenkins BRIDGE PAINTER HELPER | PCP | | + +------+ + Encounter Details +--------+ + + + + | Date | Type | Department | Care Team | Description | +--------+ + + + + | 10/27/ | Telephone | Orthopaedics at | Kalyan Arias MD | | | 2008 | | [facility] [address] | [address] | | | | | [address] | [address] | | | | | Mailcode: [id number] | [place], [place] | | | | | [facility] | [address] | | | | | [place], [place] | [phone] | | | | | [address] | | | | | | [phone] | | | +--------+ + + + [...]
--- OUTSIDE RECORDS SUMMARY | ~2020-04-04 | XMS | Encounter Summary ---
Demographics + + + | Address | [address] | | | [place] [address] | + + + | Home Phone | | + + + | Preferred Language | Unknown | + + + | Marital Status | | + + + | Restorationist Affiliation | [id number] | + + + | Race | Unknown | + + + | Ethnic Group | Unknown | + + + Author + + + | Author | [facility] | | | and [place] | + + + | Organization | [facility] | | | [...] Team Providers + +------+ + | Care Publishing Director Name | Role | Phone | [...] Description | +--------+---------+ + + + | 11/25/ | Office | [facility] | Xiang Sepulveda, | Chronic pain | | 2019 | Visit | [facility] | DO [address] | syndrome (Primary | | | | [address] | [place] | Dx); Other chronic | | | | [address] | [address] | pain; DDD | | | | [place], [place] | | (degenerative disc | | | | [address] | | disease), lumbar; | | | | [phone] | | Decreased range of | | | | | | hip movement, | | | | | | unspecified | | | | | | laterality; Facet | | | | | | arthropathy, lumbar; | | | | | | Osteoarthritis of | | | | | | lumbar spine, | | | | | | unspecified spinal | | | | | | osteoarthritis | | | | | | complication status; | | | | | | Hip pain, chronic, | | | | | | left; Radiculopathy | | | | | | of lumbar region; | | | | | | Morbid obesity with | | | | | | BMI of 50.0-59.9, | | | | | | adult (HCC) | +--------+---------+ + + + Social History + +-------+ +--------+------+ | Tobacco Use | Types | Packs/Day | Years | Date | | | | | Used | | + +-------+ +--------+------+ | Current Every Day | | 0.25 | 50 | | | Smoker | [...] + + + | Blood Pressure | 184/69 | 11/25/2019 10:50 AM | | | | | PST | | + + + + + | Pulse | 104 | 11/25/2019 10:50 AM | | | | | PST | | + + + + + | Temperature | - | - | | + + + + + | Respiratory Rate | 20 | 11/25/2019 10:50 AM | | | | | PST | | + + + + + | Oxygen Saturation | 97% | 11/25/2019 10:50 AM | | | | | PST | | + + + + + | Inhaled Oxygen | - | - | | | Concentration | | | | + + + + + | Weight | - | - | | + + + + + | Height | 164.5 cm (5' 4.75") | 11/25/2019 10:50 AM | | | | | PST | | + + + + + | Body Mass Index | - | - | | + + + + + documented in this encounter Progress Notes Xiang Sepulveda, DO - 11/25/2019 11:20 AM PSTFormatting of this note might be different fr om the original. CHRONIC PAIN VISIT Patient ID: Shelby Galdamez is a 59 y.o. female (: 1960). Subjective: Chronic Pain: The primary encounter diagnosis was Chronic pain syndrome. Diagnoses of Other chronic pain, DDD (degenerative disc disease), lumbar, Decreased range of hip movement, unspecified later ality, Facet arthropathy, lumbar, Osteoarthritis of lumbar spine, unspecified spinal osteoar thritis complication status, Hip pain, chronic, left, Radiculopathy of lumbar region, and Mo rbid obesity with BMI of 50.0-59.9, adult (HCC) were also pertinent to this visit. Shelby [...] but not limited to phys ical therapy, career resource specialist, acupuncture, massage therapy, and nutritional health counse lors. and mental health counselors as deemed necessary Today's Pain Score: 10 - Worst pain ever/10. Patient states that her pain overall has sli ghtly improved on her current regimen. The patient reports Cold weather and moisture worsens symptoms, and Moist heat, pain medication relieves symptoms. Additional psycho-social event s since last visit include: none. The patient's current personal goal of pain management i s: "Patient like to be pain-free and off of all pain medications". Things she is doing to r each that goal include: Home exercise program and stopping smoking to qualify for left hip s urgery. Progress toward meeting that goal has been: fair. Medication FYI Flag Type Author Status Filed Medication Agreement Antonella Sprague, Labor And Delivery Nurse Active 11/25/2019 10:52 AM Pain Contract- Dr. Sepulveda 11/25/2019 PEG Pain screening tool (Pain, enjoyment, general activity) Total score: (Printable questionnaires in Albanian ) Interpretation of Total Score: PEG scores are used to track changes over time. It should de crease after therapy has begun. Last 4 PEG Scores: No flowsheet data found. Opioid Risk Tool (ORT): Total Score Pulse: 104 Resp: 20 BP: 184/69 SpO2: 97 % (From Chronic Pain tab; printable questionnaires in Albanian) Interpretation of Total Score: 0 to 3 = Low risk: 6% chance of developing problematic behav iors, 4 to 7 = Moderate risk: 28% chance of developing problematic behaviors, 8 or more = Hi gh risk: 90% chance of developing problematic behaviors. No flowsheet data found. Outpatient Morphine Equivalent Daily Dose (MEDD) 11/25/19 - 11/28/19 30 mg MEDD Order Name Dose Route [...] factor of 1.5 = 30 mg MEDD 11/29/19 and after None Current Outpatient Medications: albuterol [...] 5 mg tablet, , Disp: , Rfl: cyclobenzaprine (FLEXERIL) 10 mg tablet, , Disp: , Rfl: diclofenac (VOLTAREN) 75 mg EC tablet, Take 1 tablet by mouth 2 (two) times daily., Di sp: 60 tablet, Rfl: 3 docusate sodium (COLACE) 100 mg capsule, Take 100 mg by mouth every 12 hours as needed ., Disp: , Rfl: losartan (COZAAR) 100 MG tablet, Take 100 mg by mouth., Disp: , Rfl: omeprazole (PRILOSEC) 20 mg [...] Smoking status: Current Every Day Smoker Packs/day: 0.25 Years: 50.00 Pack years: 12.50 Smokeless tobacco: Current User Tobacco comment: 1 pack daily Substance Use Topics Alcohol use: No Social History Substance and Sexual Activity Drug Use Yes Types: Marijuana Comment: Drug use: Yes Mood Screening: PHQ-9 Depression Scale 4 (5-9 = Mild, 10-14 = Moderate, 15-19 = Moderately Severe, 20-27 = Severe) Anxiety Scale 4 (5-9 = Mild, 10-14 = Moderate, 15-21 = Severe Anxiety) Additional Problems: HPI Chronic pain syndrome, degenerative disc disease lumbar spine, degenerative joint disease m ultiple joints multiple sites, facet arthropathy in the lumbar spine, osteoarthritis of the lumbar spine, chronic left hip pain, radiculopathy in the lumbar region, morbid obesity, chr onic pain syndrome, long-term current use of opioid analgesics, History: Past Medical History: Diagnosis Date Arthritis [...] ; Surg andrés: Rustam Schmid MD; Location: [facility] MAIN OR Review of Systems Constitutional: Positive for activity change. Gastrointestinal: Negative. Genitourinary: Negative. Musculoskeletal: Positive for arthralgias, back pain and gait problem. Objective: Vital Signs: BP 184/69 | Pulse 104 | Resp 20 | Ht 1.645 m (5' 4.75") | SpO2 97% | BMI 48.13 kg/m Physical Exam 59-year-old female alert and oriented x4 no acute distress vital signs stable skin texture turgor good bowel bladder continent. Patient has no bowel issues with current medication program. Patient did have some flooding difficulties in her region. Patient uses a roller walker for ambulation weightbearing as tolerated. Most of her pain i nvolves her low back and left hip. She is also complained of some right shoulder discomfort at this point time and would like to see her primary care physician again. Current medication that we give her include Voltaren 75 mg twice a day, and Percocet 5/325 1 p.o. every 6 hours as needed pain. She got Flexeril from another practitioner. Active range of motion bilateral upper extremities and functionless muscle strength is 4/5. Some increased soreness of the right shoulder but the range of motion is within functional limits. Active range of motion bilateral lower extremities and functional limits muscle strength at the right is 4/5 on the left is 3+/5. Patient complained of increased left hip pain. Part icularly when ambulating. Patient is trying to lose weight. She is also trying to stop smoking so she can qualify fo r her left hip surgery. And states that she is down to 5 cigarettes/day. Balance sitting is good, standing is fair plus. Patient utilizes a roller walker weightbea ring as tolerated with all gait short distances around the house. Again patient states that most of her pain is in her low back and left hip area with some m ilder efforts in the right shoulder. No results found for this or any previous visit (from the past 672 hour(s)). Improved Functional Status for Age Including ADL's, Mobility and Transfers where appropriate Assessment and Plan: Chronic pain issues are being controlled by the current treatment regimen. There have not b een concerns or red flags for improper use/abuse of medications since last visit. The patien hernan has been consistently compliant with her pain contract requirements. @ is actively doing t hings other than taking medication to help manage her pain. The Patient's ongoing expectations of chronic pain treatment were reviewed Her ongoing functional goals were reviewed. Medication side effects are tolerable. [place] / [place] PDMP reviewed, listed controlled substances are consistent with [facility] prescriptions and patient reported use. Controlled Medications: no change. Refills given as appropriate for the next 2 months, and she will follow up befo re next refill is due. Recent Review Flowsheet Data There is no flowsheet data to display. Pertinent Pain History: Chronic pain related to As noted above in the HPI Helpful treatments: Moist heat, pain medication, Failed treatments: Therapy ORT Score = 3 (0-3 = low risk, 4-7 = mod risk, 8+ = high risk) Daily Opioid Dose = Percocet 5/325 1 p.o. every 6 hours as needed pain Daily Morphine Equivalent Dose (MED) = 30 mg of morphine daily Chronic benzodiazepine use: no Pain Agreement (date): {YES/ Visits every: 2 months Drug Screen every: Twice a year Next Refill due: 30 days Follow-up: Patient return his office for reevaluation and to 8 weeks. Patient states current medication provides significant pain relief and improve quality of l ace. She hopes to be able to stop smoking and qualify for left hip surgery. No follow-ups on file. Total time spent with the patient was 15 minutes of which more than 50 % was spent discussi ng above evaluation findings, treatment options and coordination of care. Alternative treatment modalities where discussed and offered to patient including but not l imited to physical therapy, massage therapy, acupuncture, career resource specialist, along with jabari mmended psychological counseling, either privately, or in group sessions offered by private care individuals, community services, or taoist organizations. Appropriate referrals were made at patient [...] are noted in men and women. Ma mo men will suffer erectile dysfunction with these [...] and complications with the passage of time. group home use is also associated with depressions, and liver and renal failure. Finally, these medicines are associated with both physical and emotional addiction and can be difficult to stop after taking for only a few weeks. This document has been created using [employer] Voice Recognition software and [employer]. The entry has been reviewed for content and accuracy, but there may still exist "sound alike" director of speech pathology word errors and/or unintended additions and deletions. If there is any question please contact the author of the document: Xiang Sepulveda DOElectronically sig felisha by Xiang Sepulveda DO at 11/25/2019 11:38 AM PSTdocumented in this encounter Plan of Treatment +--------+---------+ + + + | Date | Type | Specialty | Care Team | Description | +--------+---------+ + + + | 05/23/ | Office | Pain Medicine | Xiang Sepulveda, | | 2019 | Visit | | DO [address] | | | | | | [place] | | | | | | [id number] | | | | | | | | +--------+---------+ + + + documented as of this encounter Visit Diagnoses + + | Diagnosis | + + | Chronic pain syndrome - Primary | + + | Other chronic pain | + + | DDD (degenerative disc disease), lumbar Degeneration of lumbar or lumbosacral | | intervertebral disc | + + | Decreased range of hip movement, unspecified laterality | + + | Facet arthropathy, lumbar Lumbosacral spondylosis without myelopathy | + + | Osteoarthritis of lumbar spine, unspecified spinal osteoarthritis complication status | + + | Hip pain, chronic, left | + + | Radiculopathy of lumbar region Thoracic or lumbosacral neuritis or radiculitis, | | unspecified | + + | Morbid obesity with BMI of 50.0-59.9, adult (HCC) | + + documented in this encounter
--- OUTSIDE RECORDS SUMMARY | ~2020-04-04 | XMS | Encounter Summary ---
Demographics + + + | Address | [address] | | | [place] [address] | + + + | Home Phone [...] Author + + + | Author | [facility] | + + + | Organization | [facility] | + + + | Address [...] Team Providers + +------+ + | Care Brand Leader Name | Role | Phone | + +------+ + | Travis Mcginnis MD | PCP | | + +------+ + Encounter Details +--------+ + + + + | Date | Type | Department | Care Team | Description | +--------+ + + + + | 10/02/ | Hospital | Radiology/Imaging | Royce Durand, | | | 2019 | Encounter | Lab at [facility] [address] | [address] [facility] | | | | | Yasmany Gil Mailcode: | [address] | | | | | [facility] | [place], [place] | | | | | Health and Healing, | [address] | | | | | | [phone] | | | | | Floor [place], [place] | | | | | | [address] | | | | | | [phone] | | | +--------+ + + + [...] at Time of Discharge + + + +---------+ + + | Medication | Sig | Dispensed | Refills | Start | End Date | | | | | | Date | | + + + +---------+ + + | acetaminophen 500 | Take 500 mg by mouth | | 0 | | | | mg Oral Tablet | every six hours as | | | | | | | needed. | | | | | + + + +---------+ + + | ALBUTEROL SULFATE | inhale the contents | | 0 | | | | 200 MCG CAPS WITH | of one capsule by | | | | | | INHALATION DEVICE | inhalation route | | | | | | | every 4 hours as | | | | | | | needed | | | | | + + + +---------+ + + | aspirin EC 325 mg | Take 1 Tab by mouth | 90 Tab | 0 | 10/20/19 | | | Oral Tablet, Delayed | two times daily. | | | 11 | | | Release (E.C.) | Take for 6 weeks as | | | | | | | prevention of leg | | | | | | | blood clots. | | | | | + + + +---------+ + + | CALCIUM | Take by mouth. | | 0 | | | | CARBONATE/VITAMIN D3 | | | | | | | (CALCIUM 600 + D | | | | | | | ORAL) | | | | | | + + + +---------+ + + | ciprofloxacin | Take 1 Tab by mouth | 60 Tab | 5 | 11/23/19 | | | (CIPRO) 750 mg Oral | every twelve hours. | | | 11 | | | Tablet | Take until gone. | | | | | + + + +---------+ + + | CYCLOBENZAPRINE | Take by mouth. | | 0 | | | | HCL (CYCLOBENZAPRINE | | | | | | | ORAL) | | | | | | + + + +---------+ + + | docusate sodium | Take 100 mg by mouth | | 0 | 07/06/20 | | | (DOC-Q-LACE) 100 mg | as needed. | | | 10 | | | Oral Capsule | | | | | | + + + +---------+ + + | | Take 1 Tab by mouth | | 0 | | | | hydrocodone-acetamin | every four hours as | | | | | | ophen 7.5-325 mg | needed. Not to | | | | | | Oral [...] hour period.) | | | | | + + + +---------+ + + | ibuprofen 800 mg | Take 800 mg by mouth | | 0 | | | | oral tablet | every six hours as | | | | | | | needed. | | | | | + + + +---------+ + + | MULTIVITS | Take by mouth. | | 0 | | | | W-FE,OTHER MIN | | | | | | | (CENTRUM ORAL) | | | | | | + + + +---------+ + + | [place]-3 Fatty | Take by mouth. | | 0 | | | | Acids-Vitamin E | | | | | | | (FISH OIL) 1,000 mg | | | | | | | Oral Capsule | | | | | | + + + +---------+ + + | omeprazole | Take 40 mg by mouth | | 0 | | | | (PRILOSEC) 40 mg | once daily. | | | | | | Oral Capsule, | | | | | | | Delayed | | | | | | | Release(E.C.) | | | | | | + + + +---------+ + + | rifamPIN 300 mg | Take 1 Cap by mouth | 60 Cap | 5 | 11/13/19 | | | Oral Capsule | two times daily. | | | 11 | | + + + +---------+ + + documented as of this encounter Plan of Treatment Not on filedocumented as of this encounter Procedures + +--------+ + + + | Procedure Name | Priori | Date/Time | Associated Diagnosis | Comments | | | ty | | | | + +--------+ + + + | X-RAY HIP 2 VIEWS | Routin | 10/02/2018 | Left hip pain | Results for this | | LEFT W/ PELVIS 1 | e | 9:47 AM | | procedure are in the | | VIEW | | PST | | results section. [...] the report as now presented. Final signature: Manuel Aldana | 10/02/2018 10:09 AM Preliminary: Yue Porter [...] + | Diagnosis | + + | Left hip pain Pain in joint, pelvic region and thigh | + + documented in this encounter"
--- OUTSIDE RECORDS SUMMARY | ~2020-04-04 | XMS | Encounter Summary ---
Demographics + + + | Address | [address] | | | [place] [address] | + + + | Home Phone | | + + + | Preferred Language | Unknown | + + + | Marital Status | Single | + + + | Sabianist Affiliation | PRE | + + + | Race | White | + + + | Ethnic Group | Not or | + + + Author + + + | Author | [facility] | + + + | Organization | [facility] | + + + [...] Team Providers + +------+ + | Care Shook Machine Operator Name | Role | Phone | + +------+ + PCP | Unavailable | + +------+ + Encounter Details +--------+ + + + + | Date | Type | Department | Care Team | Description | +--------+ + + + + | 09/05/ | Office | [facility] | Note, [...] as of this encounter Progress Notes Interface, Cnc Cutting Operator In - 08/06/2006 1:09 AM PSTCLINIC DATE: 09/05/2000 ORTHOPEDIC CLINIC HISTORY: A 40-year-old obese female followed for DJD of the right hip, as well as low back pain with sciatica. She has had now 2 injections of the hip, one in March 2000 and mostly recently on June 24, 2000, nearly 3 months ago. She found that the pain after the injection actually was severe enough that she needed to come to the Emergency Room, but after receiving some Ultram the pain became dramatically better, and she, in fact, was doing "great" until 2 weeks ago. She was able to ambulate without a cane, no longer required the Neurontin or the indomethacin. She continued to use her trazodone, but only for sleep. She was even feeling well enough to begin to go look for a job. Unfortunately 2 weeks ago, her stress level dramatically increased when her 20-year-old son who was thought to have a psychiatric disorder and was using street drugs was reported missing, and she fell 2 times; once fractured her left lateral thigh and once on to both knees. She has since needed to return to walking with a cane. Before her recent fall, she could walk 5 blocks with the cane, now she can only walk a half a block. She has been taking 10 mg of Valium primarily at bedtime and as needed for muscle twitching, Flexeril, hormone replacement, inhalers. In addition, she is back on the Neurontin and indomethacin and continues with the trazodone, as well as antacid medications. She describes her hip pain now as terrible and today a particularly bad day. Her low back pain, she actually describes is a terrible pain that no longer radiates into the hip, but only to the posterior right thigh region. She has had no pool therapy for the last 2 months because of insurance reasons. They have recommended that she return to see a physical therapist for several months and have her motor strength graded before and after to see if this is making progress, and hopefully, they will re-authorize her hydrotherapy as well. PHYSICAL EXAMINATION: She ambulates with a moderate right coxalgic gait. She has pain with right hip motion which is 0 to 110 degrees of flexion, 45 degrees of external rotation, 30 degrees of internal rotation, 30 degrees of adduction, and 30 degrees of abduction with pain predominantly at the extremes of abduction and rotation. The left hip motion is 0 to 120 degrees of flexion with 60 degrees of external rotation, 30 degrees of internal rotation, 60 degrees of abduction, and 30 degrees of adduction. Straight leg raising test is negative for radiating pain below the knee. X-rays: Review of the arthrogram from May 2000 shows a dramatically diminished cartilage space and exuberant collar of osteophytes around the femoral head, less so on the acetabulum, but does seem to be present bilaterally. 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 DISPOSITION: I have recommended that she return to physical therapy and pool therapy, and I believe that she would benefit from another hip injection, but would like to wait full 3 months from her last injection, that will likely be early September 2000. She should be injected with Celestone with or without some Marcaine. She will return to clinic in 3 months for repeat evaluation. If she has had an interval arthrogram, we will not need to repeat her x-rays at that time. If she has not, AP pelvis, AP and frog lateral of the right hip should be obtained. Her pain medications will continue to be provided by Dr. Noland. Lloyd Garcia M.D. Mail Caller, Orthopedics and Rehabilitation / [id number] / [id number] / [id number] / [id number] cc: Helio Noland M.D. [address] [place] [id number] signed by Interface, Cnc Cutting Operator In at 08/06/2006 1: 09 AM PSTdocumented in this encounter Plan of Treatment Not on filedocumented as of this encounter Visit Diagnoses Not on filedocumented in this encounter
--- OUTSIDE RECORDS SUMMARY | ~2020-04-04 | XMS | Encounter Summary ---
Demographics + + + | Address | [address] | | | [place] [address] | + + + | Home Phone [...] + + + | Author | [facility] | + + + | Organization | [facility] | + + + | Address | Unknown | + + + | Phone | Unavailable | + + + Support + + + + + | Name | Relationship | Address | Phone | + + + + + | Casandra Smith | ROBERTO | [place] | | + + + + + Care Team Providers + +------+ + | Care Ent Surgeon Name | Role | Phone | + [...] Closed | | Physical | Diagnoses | Hugo, | Erendira, | | | | Medicine and | Lumbar | Tyrone Barrientos MD | MD Vince | | | | Rehab / | radiculopath | [address] | | | | Orthopedics | y | [address] | [address] | | | | | Procedures | Roxann Ayala | [place], | | | | | CONSULT TO | [place], [place] | [place] | | | | | ORTHOPEDICS | | | | | | | AND | Phone: | Phone: | | | | | REHABILITATI | [phone] | [phone] | | | | | ON | Fax: | Fax: | | | | | | [phone] | [phone] | +--------+--------+ + + + + Diagnostic Testing (Routine) +--------+--------+ + + + + | Status | Reason | Specialty | Diagnoses / | Referred By | Referred To | | | | | Procedures | Contact | Contact | +--------+--------+ + + + + | Closed | | Radiology | Diagnoses | Colby, | [facility] | | | | | Lumbar | Tyrone Barrientos MD | [address] | | | | | radiculopath | [address] | [address] | | | | | y | [address] [place] | | | | | Procedures | Roxann Ayala | Research | | | | | MRI SPINE | [place], [place] | Center | | | | | LUMBAR WO | | [place], [place] | | | | | CONT | Phone: | [address] | | | | | | [phone] | Phone: | | | | | | Fax: | [phone] | | | | | | [phone] | Fax: | | | | | | | [phone] | +--------+--------+ + + + + Reason [...] | | | Orthopedics | | | [address] [facility] | | | | | | | [address] | | | | | | | [place], | | | | | | | [place] | | | | | | | [address] | | | | | | | Phone: | | | | | | | [phone] | | | | | | | Fax: | | | | | | | [phone] | +--------+--------+ + + + + Encounter Details +--------+---------+ + + + | Date | Type | Department | Care Team | Description | +--------+---------+ + + + | 07/06/ | Office | Orthopaedics at | Tyrone Colby MD | Lumbar | | 2009 | Visit | [facility] [address] | [address] | radiculopathy; Hip | | | | [address] | [address] | replacement | | | | Mailcode: [id number] | [place], [place] | | | | | [facility] | [address] | | | | | [place], [place] | [phone] | | | | | [address] | | | | | | [phone] | | | +--------+---------+ + + + [...] + + + + | Weight | 119.7 kg (264 lb) | 07/06/2010 8:37 AM | | | | | PDT | | + + + + + | Height | 162.6 cm (5' 4") | 07/06/2010 8:37 AM | | | | | PDT | | + + + + + | Body Mass Index | 45.32 | 07/06/2010 8:37 AM | | | | | PDT | | + + + + + documented in this encounter Progress Notes Tyrone Colby MD - 07/06/2010 9:59 AM CHAROI performed a history and physical examination of the patient and discussed her management with the resident. I reviewed the resident s note and agree with the documented findings and plan of care. TYRONE COBLY MD [facility] [address] [place] [address] Mailcode: [id number] Physicians [facility] [address] Taz Grider M D - 07/06/2010 9:32 AM PDTCC: Right back pain. SUBJECTIVE Shelby Galdamez was seen back today. Her symptoms are still pretty debilitating in her righ t lower back. She underwent another SI joint injection since her last visit. Unfortunately she didn't get any relief after the last injection (contrary to the first SI injection that gave her about 3 weeks of relief). She does endorse some mild lateral hip pain with palpat ion, but this isn't the primary source of her disability. She does report shooting pains into her right foot and occasional thigh and lateral leg num bness. She is taking narcotics prescribed by her PCP. Denies groin pain. Denies Denies recent F/C/N/V. Likewise no SOB, CP, ECHEVARRIA, dizziness. No changes in B/B. Pt's medical history and medications were reviewed and updated today in clinic. OBJECTIVE Incision CDI. No erythema, drainage. Mild tenderness at lateral hip. SI pain with MARGARET and direct palpation. Neurovascularly intact. 4/5 apf/adf on right with shooting pains down leg X-RAYS Loose troch HW. JUAN DAVID unchanged. ASSESSMENT/PLAN She was again told she is a candidate for troch hardware removal, though this does not seem to be a source of her sx. She again declined. We will obtain spin imaging and refer her t o the spine center for further eval. Her hip replacement appears stable and without complic ation. documented in this enc ounter Plan of Treatment Not on filedocumented as of this encounter Results MRI SPINE LUMBAR WO CONT (08/03/2010 2:31 PM PDT) + + + + + + | Component | Value | Ref Range | Performed | Pathologist | | | | | At | Signature | + + + + + + | MR LUMBAR | TECHNIQUE: Lumbar spine | | | | | SPINE WO | MR without contrast | | | | | CONT | COMPARISON STUDIES: | | | | | | Outside MR from 09/03/05 | | | | | | of the lumbar spine | | | | | | HISTORY: Radiculopathy | | | | | | FINDINGS:The conus | | | | | | medullaris is normal in | | | | | | position and | | | | | | configuration. Assuming | | | | | | 5 lumbar type vertebral | | | | | | bodies, T12 has a slight | | | | | | anteriorcompression | | | | | | deformity without high | | | | | | T2 signal, and probably | | | | | | notsignificant changed | | | | | | from 2004. Very slight | | | | | | anterior wedging of | | | | | | I2hrlvcpss/superior | | | | | | corner, also probably | | | | | | unchanged. Progressive | | | | | | degenerative change of | | | | | | the L2-3 disk space, | | | | | | with adjacentendplate | | | | | | and marrow signal | | | | | | changes. There is a | | | | | | slight | | | | | | S-shapedcurvature, apex | | | | | | right of the upper | | | | | | lumbar spine apex left | | | | | | of thelower lumbar | | | | | | spine. Vertebral body | | | | | | heights alignment and | | | | | | marrowsignal intensity | | | | | | are otherwise | | | | | | maintained. There is | | | | | | mild to moderate lower | | | | | | lumbar degenerative | | | | | | facethypertrophy, | | | | | | although probably most | | | | | | severe at L2-3 and L3-4. | | | | | | L1-L2: There are no | | | | | | significant spinal canal | | | | | | or foraminal stenoses. | | | | | | L2-L3: There is a | | | | | | diffusely bulging disk | | | | | | annulus with a | | | | | | focalsuperimposed right | | | | | | paracentral disk | | | | | | extrusion extending | | | | | | cranially.This focal | | | | | | extrusion does not | | | | | | appear to cause | | | | | | significant | | | | | | stenosis.There is mild | | | | | | bilateral foraminal | | | | | | narrowing from a | | | | | | combination ofdisk | | | | | | height loss and mild | | | | | | degenerative facet | | | | | | hypertrophy. L3-L4: | | | | | | There are no significant | | | | | | spinal canal or | | | | | | foraminal stenoses. | | | | | | L4-L5: There are no | | | | | | significant spinal canal | | | | | | or foraminal stenoses. | | | | | | L5-S1: There are no | | | | | | significant spinal canal | | | | | | or foraminal stenoses. | | | | | | IMPRESSION: Chronic | | | | | | minimal anterior wedging | | | | | | of T12 and L1. | | | | | | Progressive degenerative | | | | | | change of the L2-3 | | | | | | disk, with disk | | | | | | heightloss diffusely | | | | | | bulging disk annulus and | | | | | | right paracentral | | | | | | focalextrusion. | | | | | | Diffusely bulging disk | | | | | | annulus and facet | | | | | | hypertrophyresult in | | | | | | mild bilateral foraminal | | | | | | narrowing. Multilevel | | | | | | lower lumbar | | | | | | degenerative facet | | | | | | hypertrophy. I have | | | | | | personally viewed this | | | | | | procedure/exam and | | | | | | reviewed this report. | | | | | | Author: MARTINA BURCH | | | | | | MalcomReviewer: MARTINA | | | | | | Malcom BURCH STATUS | | | | | | FINAL / Dr. MACK | | | | | | KIERSTEN | | | | + + + [...] + | Diagnosis | + + | Lumbar radiculopathy Thoracic or lumbosacral neuritis or radiculitis, unspecified | + + | Hip replacement Hip joint replacement by other means | + + documented in this encounter
--- OUTSIDE RECORDS SUMMARY | ~2020-04-04 | XMS | Encounter Summary ---
Demographics + + + | Address | [address] | | | [place] [address] | + + + | Home Phone [...] Team Providers + +------+ + | Care Salt Manager Name | Role | Phone | + +------+ + PCP | Unavailable | + +------+ + Encounter Details +--------+ + + + + | Date | Type | Department | Care Team | Description | +--------+ + + + + | 10/15/ | Discharge | | Summary, Discharge | D/C Summary ODDS | | 2004 | Summary-Tra | | | | | | nscribed | | | | +--------+ + + [...] + + documented as of this encounter Discharge Summaries Interface, Study Specialist In 04/28/2005 5:10 PM PDTAdmission Date: 09/25/2003 Discharge Date: 10/15/2003 STAFF PHYSICIAN: Lloyd Garcia M.D. PRINCIPAL FINAL DIAGNOSIS: Right hip infection. ADDITIONAL DIAGNOSES: 1. Right greater trochanter osteotomy hardware failure. 2. 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 3. Asthma. 4. Gastroesophageal reflux disease. PRINCIPAL PROCEDURE: Irrigation and debridement of the right hip on September 25, 2003, with hardware removal. ADDITIONAL PROCEDURES: 1. Primary closure of right hip wound. 2. Infectious disease consult. 3. Peripherally inserted central catheter line placement. 4. Anesthesia pain service consult. 5. Physical therapy and occupational therapy. 6. Brace shop evaluation. REASON FOR ADMISSION: This is a 43-year-old woman status post right hip canalectomy on August 10, 2003. This was complicated by a greater trochanter osteotomy hardware failure that resulted in an open reduction and internal fixation of the greater trochanter on September 13, 2003. This was then followed by a wound infection which led to the patient being admitted on September 25, 2003. In terms of her labs, her C-reactive protein went from an initial 7.7 on September 25, 2003, to 0.7 on October 13, 2003. Her white count went from 13.5 on September 27, 2003, to 8.6 on October 13, 2003. Her sedimentation rate went from 94 on September 25, 2003, to 86 on October 13, 2003. HOSPITAL COURSE: The patient was taken to the operating room that day and had permanent drainage from the wound site. The wound was then copiously irrigated with normal saline and a wound bag was placed. At that time the hardware was also removed. The patient postoperatively was started on vancomycin and ciprofloxacin. The patient was subsequently taken back to the operating room for numerous wound bag changes which included the dates of September 27, 2003, September 29, 2003, and October 01, 2003. The patient was seen by infectious disease on September 30, 2003, and was started on nafcillin and Flagyl since her wound closure grew out staphylococcus aureus and mixed anaerobes. On October 05, 2003, the patient had another wound bag change and intraoperative plastics evaluation who recommended a primary closure of the wound. The patient was then taken to the operating room on October 08, 2003, as a combined effort between plastics and orthopedics to have a primary closure of the wound with Hemovac drains placed. Postoperatively, the patient's pain was managed with an epidural and she was on Lovenox for LEANDRA prophylaxis. The patient was using a hip abductor brace at six series of flexion for ambulation. The patient worked with physical therapy and occupational therapy and once she was ambulating on her own power she could be discharged to home. The patient is not to be readmitted. DISPOSITION: Home with home health for intravenous antibiotics. CONDITION ON DISCHARGE: Good. DISCHARGE MEDICATIONS: 1. Oxycodone #100. 2. Flagyl 500 mg p.o. q6h times one month. 3. Nafcillin 2 grams intravenously q4h times one month. 4. Iron sulfate. 5. Phenergan 25 mg, #20. 6. Nystatin powder. 7. Aspirin 325 mg #30. DISCHARGE INSTRUCTIONS: DIET: Not dictated. ACTIVITY: Wheelchair. She can do toe-touch weightbearing to the right lower extremity while wearing the right abductor brace. FOLLOW-UP: The patient will see Lloyd Garcia M.D. in orthopedic clinic on October 21, 2003, as well as seeing Marguerite Araujo M.D. in her clinic on October 21, 2003. The patient should call a plastic number at for further details concerning her plastic appointment. Benson Boone M.D. Lloyd Garcia M.D. RT/X64 P DTdocumented in this encounter Plan of Treatment Not on filedocumented as of this encounter Visit Diagnoses Not on filedocumented in this encounter"
--- OUTSIDE RECORDS SUMMARY | ~2020-04-04 | XMS | Encounter Summary ---
Demographics + + + | Address | [address] | | | [place] [address] | + + + | Home Phone [...] Team Providers + +------+ + | Care Warp Tier Name | Role | Phone | + +------+ + PCP | Unavailable | + +------+ + Encounter Details +--------+ + + + + | Date | Type | Department | Care Team | Description | +--------+ + + + + | 09/14/ | Results | | Other, Faculty | | | 2002 | Only | | [phone] | | +--------+ + + + + [...] | BASIC METABOLIC SET | Routin | 09/27/2003 | | Results for this | | (NA, K, CL, TCO2, | e | 6:01 AM | | procedure are in the | | BUN, CR, GLU, CA) | | PST | | results section. | + +--------+ + + + | CBC ONLY | Routin | 09/27/2003 | | Results for this | | | e | 6:01 AM | | procedure are in the | | | | PST | | results section. | + +--------+ + + + | HEMOGLOBIN A1C, | Routin | 09/27/2003 | | Results for this | | BLOOD | e | 6:01 AM | | procedure are in the | | | | PST | | results section. | + +--------+ + + + | CBC ONLY | Routin | 09/15/2003 | | Results for this | | | e | 7:20 AM | | procedure are in the | | | | PST | | results section. | + +--------+ + + + | CBC ONLY | Routin | 09/14/2003 | | Results for this | | | e | 7:48 AM | | procedure are in the | | | | PST | | results section. | + +--------+ + + + documented in this encounter Results HEMOGLOBIN A1C (09/27/2003 6:01 AM PST) + + + + + + | Component | Value | Ref Range | Performed | Pathologist | | | | | At | Signature | + + + + + + | HEMOGLOBIN | See cmnt | % | | | | A1C | | | | | + + + + + + + + | Specimen | + + | | + + + + + | Narrative | Performed At | + + + | Ordered by JEFERSON CRONIN, . [id number] Patient unavailable, | | | specimen not obtained | | + + + + + + + + | Performing | Address | City/State/Zipcode | Phone Number | | Organization | | | | + + + + + | [facility] | [address] | [place] [address] | | | LABORATORY | | | | + + + + + CBC ONLY WITH PLATELET (09/27/2003 6:01 AM PST) + + + + + + | Component | Value | Ref Range | Performed | Pathologist | | | | | At | Signature | + + + + + + | WHITE CELL | See cmnt | 4.4 - 11.0 K/cu | [facility] | | | COUNT | | mm | DEPARTMENT | | | | | | OF | | | | | | PATHOLOGY | | + + + + + + | RED CELL | See cmnt | 3.65 - 5.10 | [facility] | | | COUNT | | M/cu mm | DEPARTMENT | | | | | | OF | | | | | | PATHOLOGY | | + + + + + + | HEMOGLOBIN | See cmnt | 11.4 - 15.0 | [facility] | | | | | g/dL | DEPARTMENT | | | | | | OF | | | | | | PATHOLOGY | | + + + + + + | HEMATOCRIT | See cmnt | 33.0 - 44.6 % | [facility] | | | | | | DEPARTMENT | | | | | | OF | | | | | | PATHOLOGY | | + + + + + + | MCV | See cmnt | 80.0 - 96.0 fL | [facility] | | | | | | DEPARTMENT | | | | | | OF | | | | | | PATHOLOGY | | + + + + + + | MCH | See cmnt | 29.0 - 32.0 pg | [facility] | | | | | | DEPARTMENT | | | | | | OF | | | | | | PATHOLOGY | | + + + + + + | MCHC | See cmnt | 33.4 - 35.5 | [facility] | | | | | g/dL | DEPARTMENT | | | | | | OF | | | | | | PATHOLOGY | | + + + + + + | RDW | See cmnt | 11.5 - 15.0 % | [facility] | | | | | | DEPARTMENT | | | | | | OF | | | | | | PATHOLOGY | | + + + + + + | PLATELET | See cmnt | 150 - 400 K/cu | [facility] | | | COUNT | | mm | DEPARTMENT | | | | | | OF | | | | | | PATHOLOGY | | + + + + + + | MPV | See cmnt | 7.4 - 10.4 fL | [facility] | | | | | | DEPARTMENT | | | | | | OF | | | | | | PATHOLOGY | | + + + + + + + + | Specimen | + + | | + + + + + | Narrative | Performed At | + + + | Ordered by JEFERSON CRONIN JR. [id number] Patient unavailable, | [facility] | | specimen not obtained | DEPARTMENT OF | | | PATHOLOGY | + + + + + + + + | Performing | Address | City/State/Zipcode | Phone Number | | Organization | | | | + + + + + | [facility] | [address] | [place] [address] | | | PATHOLOGY | [address] | | | + + + + + | [facility] | [address] | [place] [address] | | | PATHOLOGY | [address] | | | + + + + + BASIC METABOLIC SET (09/27/2003 6:01 AM PST) + + + + + + | Component | Value | Ref Range | Performed | Pathologist | | | | | At | Signature | + + + + + + | GLUCOSE, | See cmnt | 65 - 110 mg/dL | [facility] | | | PLASMA | | | DEPARTMENT | | | (LAB) | | | OF | | | | | | PATHOLOGY | | + + + + + + | BUN, PLASMA | See cmnt | 6 - 20 mg/dL | [facility] | | | (LAB) | | | DEPARTMENT | | | | | | OF | | | | | | PATHOLOGY | | + + + + + + | CREATININE | See cmnt | 0.6 - 1.1 mg/dL | [facility] | | | PLASMA | | | DEPARTMENT | | | (LAB) | | | OF | | | | | | PATHOLOGY | | + + + + + + | SODIUM, | See cmnt | 136 - 145 | [facility] | | | PLASMA | | mmol/L | DEPARTMENT | | | (LAB) | | | OF | | | | | | PATHOLOGY | | + + + + + + | POTASSIUM, | See cmnt | 3.5 - 5.1 | [facility] | | | PLASMA | | mmol/L | DEPARTMENT | | | (LAB) | | | OF | | | | | | PATHOLOGY | | + + + + + + | CHLORIDE, | See cmnt | 98 - 107 mmol/L | [facility] | | | PLASMA | | | DEPARTMENT | | | (LAB) | | | OF | | | | | | PATHOLOGY | | + + + + + + | TOTAL CO2, | See cmnt | 23 - 29 mmol/L | [facility] | | | PLASMA | | | DEPARTMENT | | | (LAB) | | | OF | | | | | | PATHOLOGY | | + + + + + + | CALCIUM, | See cmnt | 8.5 - 10.5 | [facility] | [...] | + + + | Ordered by JEFERSON CRONIN JR. [id number] Staff or dialysis draw | [facility] | | required. | DEPARTMENT OF | | | PATHOLOGY | + + + + + + + + | Performing | Address | City/State/Zipcode | Phone Number | | Organization | | | | + + + + + | [facility] | [address] | [place] [address] | | | PATHOLOGY | [address] | | | + + + + + | [facility] DEPARTMENT OF | [address] | [place] [address] | | | PATHOLOGY | [address] | | | + + + + + CBC ONLY WITH PLATELET (09/15/2003 7:20 AM PST) + + + + + [...] + + + | RED CELL | 3.31 (L) | 3.65 - 5.10 | [facility] [...] + + + + | HEMATOCRIT | 28.5 (L) | 33.0 - 44.6 % | [facility] | | | | | | DEPARTMENT | | | | | | OF | | | | | | PATHOLOGY | | + + + + + + | MCV | 86.0 | 80.0 - 96.0 fL | [facility] [...] + + + + | MCHC | 32.8 (L) | 33.4 - 35.5 | [facility] [...] + + + + | PLATELET | 367 | 150 - 400 K/cu | [facility] | | | COUNT | | mm | DEPARTMENT | | | | | | OF | | | | | | PATHOLOGY | | + + + + + + | MPV | 6.7 (L) | 7.4 - 10.4 fL | [...] + | Ordered by UNKNOWN DOCTOR | [facility] | | | DEPARTMENT OF | | | PATHOLOGY | + + + + + + + + | Performing | Address | City/State/Zipcode | Phone Number | | Organization | | | | + + + + + | [facility] DE[facility] | [address] | [place] [address] | | | PATHOLOGY | [address] | | | + + + + + | [facility] | [address] | [place] [address] | | | PATHOLOGY | [address] | | | + + + + + CBC ONLY WITH PLATELET (09/14/2003 7:48 AM PST) + + + + + + | Component | Value | Ref Range | Performed | Pathologist | | | | | At | Signature | + + + + + + | WHITE CELL | 10.5 | 4.4 - 11.0 K/cu | [facility] | | | COUNT | | mm | DEPARTMENT | | | | | | OF | | | | | | PATHOLOGY | | + + + + + + | RED CELL | 3.59 (L) | 3.65 - 5.10 | [facility] | | | COUNT | | M/cu mm | DEPARTMENT | | | | | | OF | | | | | | PATHOLOGY | | + + + + + + | HEMOGLOBIN | 10.1 (L) | 11.4 - 15.0 | [facility] | | | | | g/dL | DEPARTMENT | | | | | | OF | | | | | | PATHOLOGY | | + + + + + + | HEMATOCRIT | 30.5 (L) | 33.0 - 44.6 % | [facility] | | | | | | DEPARTMENT | | | | | | OF | | | | | | PATHOLOGY | | + + + + + + | MCV | 84.8 | 80.0 - 96.0 fL | [facility] | | | | | | DEPARTMENT | | | | | | OF | | | | | | PATHOLOGY | | + + + + + + | MCH | 28.0 (L) | 29.0 - 32.0 pg | [...] + + + + | RDW | 13.8 | 11.5 - 15.0 % | [facility] | | | | | | DEPARTMENT | | | | | | OF | | | | | | PATHOLOGY | | + + + + + + | PLATELET | 406 (H) | 150 - 400 K/cu | [facility] | | | COUNT | | mm | DEPARTMENT | | | | | | OF | | | | | | PATHOLOGY | | + + + + + + | MPV | 6.6 (L) | 7.4 - 10.4 fL | [...] + | Ordered by UNKNOWN DOCTOR | [facility] | | | DEPARTMENT OF | | | PATHOLOGY | + + + + + + + + | Performing | Address | City/State/Zipcode | Phone Number | | Organization | | | | + + + + + | [facility] | [address] | [place] [address] | | | PATHOLOGY | [address] | | | + + + + + | [facility] DEPARTMENT OF | [address] | [place] [address] | | | PATHOLOGY | [address] | | | + + + + + documented in this encounter Visit Diagnoses Not on filedocumented in this encounter"
--- OUTSIDE RECORDS SUMMARY | ~2020-04-04 | XMS | Encounter Summary ---
Demographics + + + | Address | [address] | | | [place] [address] | + + + | Home Phone [...] Team Providers + +------+ + | Care Phlebotomy Tech Name | Role | Phone | + +------+ + | Yuki Pantoja MD | PCP | | + +------+ + Encounter Details +--------+------+ + + + | Date | Type | Department | Care Team | Description | +--------+------+ + + + | 01/20/ | Lab | [facility] at [facility] | | Hip Pain; | | 2008 | | [address] | | Hip Replacement | | | | [address] [facility] | | | | | | [place], 3rd floor | | | | | | [place], [place] | | | | | | [address] | | | | | | [phone] | | | +--------+------+ + + + Social History + + [...] + + | DIFFERENTIAL | Routin | 01/20/2009 | | Results for this | | | e | 10:02 AM | | procedure are in the | | | | PDT | | results section. | + +--------+ + + + | SLIDE REVIEW | Routin | 01/20/2009 | | Results for this | | | e | 10:02 AM | | procedure are in the | | | | PDT | | results section. | + +--------+ + + + | CBC, WITH | Routin | 01/20/2009 | Hip Pain Hip | Results for this | | DIFFERENTIAL | e | 10:02 AM | Replacement | procedure are in the | | | | PDT | | results section. | + +--------+ + + + | C-REACTIVE PROTEIN | Routin | 01/20/2009 | Hip Pain Hip | Results for this | | | e | 10:02 AM | Replacement | procedure are in the | | | | PDT | | results section. | + +--------+ + + + | SEDIMENTATION RATE | Routin | 01/20/2009 | Hip Pain Hip | Results for this | | | e | 10:02 AM | Replacement | procedure are in the | | | | PDT | | results section. | + +--------+ + + + documented in this encounter Results SLIDE REVIEW (01/20/2009 10:02 AM PDT) + + | Specimen | + + | | + + + + + | Narrative | Performed At | + + + | * Corrected 01/20/09 11:01: RAHUL CASTAÑEDA, prev report: Cristina | [facility] | | review pending. | DEPARTMENT OF | | | PATHOLOGY | + + + + + + + + | Performing | Address | City/State/Zipcode | Phone Number | | Organization | | | | + + + + + | [facility] DEPARTMENT OF | [facility] | [place] [address] | | | PATHOLOGY | [address] | | | + + + + + | [facility] DEPARTMENT OF | [address] [facility] | [place] [address] | | | PATHOLOGY | [address] | | | + + + + + DIFFERENTIAL (01/20/2009 10:02 AM PDT) + +-------+ + + + | Component | Value | Ref Range | Performed | Pathologist | | | | | At | Signature | + +-------+ + + + | NEUTROPHIL | 67 | 50 - 70 % | [facility] [...] +-------+ + + + | NEUTROPHIL | 7.1 | 1.8 - 7.7 K/cu | [facility] [...] 11:01: RAHUL COMMENTS, prev report: Slide | [facility] | | review pending. | DEPARTMENT OF | | | PATHOLOGY | + + + + + + + + | Performing | Address | City/State/Zipcode | Phone Number | | Organization | | | | + + + + + | [facility] DEPARTMENT OF | [address] | [place] [address] | | | PATHOLOGY | [address] | | | + + + + + | [facility] DEPARTMENT OF | [address] | [place] [address] | | | PATHOLOGY | [address] | | | + + + + + CBC, WITH DIFFERENTIAL (01/20/2009 10:02 AM PDT) [...] | + + + + + | [facility] DEPARTMENT | [address] [facility] | [place] [address] | | | PATHOLOGY | [address] | | | + + + + + | [facility] DEPARTMENT | [address] [facility] | [place] [address] | | | PATHOLOGY | [address] | | | + + + + + SEDIMENTATION RATE (01/20/2009 10:02 AM PDT) + +-------+ + + + | Component | Value | Ref Range | Performed | Pathologist | | | | | At | Signature | + +-------+ + + + | SEDIMENTATI | 16 | <21 mm/hr | [facility] | | | ON RATE | | [...] | + + + + + | [facility] DEPARTMENT OF | [address] | [place] [address] | | | PATHOLOGY | [address] | | | + + + + + | [facility] DEPARTMENT OF | [address] | [place] [address] | | | PATHOLOGY | [address] [...] Change effective 10/26/08 | | | [facility] | | | [place] [address] | | | [place] [address] | | + + + + + + + + | Performing | Address | City/State/Zipcode | Phone Number | | Organization | | | | + + + + + | [facility] | [address] | [place] [address] | | | LABORATORY | | | | + + + + + documented in this encounter Visit Diagnoses + + | Diagnosis | + + | Hip pain Pain in joint, pelvic region and thigh | + + | Hip replacement Hip joint replacement by other means | + + documented in this encounter"
--- OUTSIDE RECORDS SUMMARY | ~2020-04-04 | XMS | Encounter Summary ---
Demographics + + + | Address | [address] | | | [place] [address] | + + + | Home Phone | | + + + | Preferred Language | Unknown | + + + | Marital Status | Single | + + + | Nondenominational Affiliation | PRE | + + + [...] Team Providers + +------+ + | Care Assistant Research Scientist Name | Role | Phone | + +------+ + PCP | Unavailable | + +------+ + Encounter Details +--------+ + + + + | Date | Type | Department | Care Team | Description | +--------+ + + + + | 10/21/ | Office | [facility] | Note, [...] as of this encounter Progress Notes Interface, Drapery Cutter Machine In - 04/28/2005 5:10 PM PDTClinic Date: 10/21/2003 Orthopedic Subjective: Ms. Galdamez is a 43-year-old obese woman who underwent a right hip cheilectomy on August 16, 2003. This procedure was complicated by a greater trochanter hardware failure and was subsequently complicated by a right hip wound infection. She subsequently underwent numerous irrigation and debridements of her right hip, and her last operation was approximately 2 weeks ago where she underwent a combined effort between Plastics and Orthopedics for a primary wound hip closure and abductor repair. The patient has been at her friend's house in [facility] and has been receiving IV antibiotics via PICC line for Ancef IV as well as Flagyl. The patient has been doing relatively well in the interim and continues her right hip abductor brace for ambulation. She states that she does not have any significant right hip drainage and that her right leg is not bothering her significantly. She has been taking her oxycodone approximately 3 tablets every 3 to 4 hours. She has come in to clinic requesting a refill of her narcotics, hospital bed, sleeping medications, stool softener, and the PICC line evaluation. Physical Examination The patient's right hip has some mild erythema, and the skin is blanchable to soft pressure. The incision line is clean, dry, and intact except for an area that is approximately 0.5 cm in length, the anterior 1/3rd of the incision. There is no purulent or serous drainage from the site. The hip bolsters are intact, and there appears to be no evidence of skin breakdown around this area. His sensation is intact over the L4 to the S1 dermatomes. He is able to give me 5/5 extensor hallucis longus, flexor hallucis longus, gastrocnemius, soleus, quadriceps, and hamstrings motion. She has 2+ dorsalis pedis and posterior tibial pulses. Plastics was also asked to evaluate the patient, and they came in and evaluated her wound, deemed that this suture should stay in for another 2 weeks. They are happy with the incision line. The PICC line people came by and whole evaluated the patient and performed an external IV line change and deemed the PICC line was viable. Films: AP pelvis and 2 views of the right hip demonstrate that the right hip joint continues to show moderate osteoarthritis. The greater trochanteric osteotomy is in better approximation to the distal femur. Laboratory Data: Today, white count 9.5 with a hematocrit of 30.8. ESR and CRP are pending at this time. Assessment and Plan: This is a 43-year-old woman 2 weeks status post primary wound closure for her right hip infection. The patient is to continue her IV antibiotics as well as her p.o. Flagyl for 6- week course. She was also given a prescription for hospital bed, oxycodone #100, Vicodin #50, docusate #100, and Ambien 5 mg #20. The patient is to be weaned off her narcotics and will be started on Vicodin on a scheduled basis. She will use the oxycodone for breakthrough pain. This patient was seen and examined with Dr. Garcia. The patient will follow up in 4 weeks' time and will have APs in her pelvis as well as 2 views in her right hip as well as repeat CBC, ESR, and CRP. Benson Boone M.D. Lloyd Garcia M.D. / [id number] / [id number] / [id number] / [id number] Tdocumented in this encounter Plan of Treatment Not on filedocumented as of this encounter Visit Diagnoses Not on filedocumented in this encounter"
--- OUTSIDE RECORDS SUMMARY | ~2020-04-04 | XMS | Encounter Summary ---
Demographics + + + | Address | [address] | | | [place] [address] | + + + | Home Phone [...] Author + + + | Author | [facility] | + + + | Organization | [facility] | + + + | [...] Team Providers + +------+ + | Care Jail Keeper Name | Role | Phone | + [...] [address]ilion | | | | | | [place], [place] | | | | | | [address] | | | | | | [phone] | | | +--------+ + + + [...] of | | | | | | [facility] | | | | | | jose. [...] | | + +---------+ + + | [facility] DEPARTMENT OF | | | | [...] | | + +---------+ + + | [facility] DEPARTMENT OF | | | | [...] | | + +---------+ + + | [facility] DEPARTMENT | | | | | [...] | | + +---------+ + + | [facility] DEPARTMENT OF | | | | | RADIOLOGY | | | | + +---------+ + + documented in this encounter Visit Diagnoses Not on filedocumented in this encounter
--- OUTSIDE RECORDS SUMMARY | ~2020-04-04 | XMS | Encounter Summary ---
Demographics + + + | Address | [address] | | | [place] [address] | + + + | Home Phone [...] Team Providers + +------+ + | Care Orthodontist Name | Role | Phone | + +------+ + PCP | Unavailable | + +------+ + Encounter Details +--------+ + + + + | Date | Type | Department | Care Team | Description | +--------+ + + + + | 10/30/ | Office | [facility] | Note, [...] as of this encounter Progress Notes Interface, Laundry Or Dry Cleaners Counter Clerk In - 08/28/2006 3:05 AM PSTCLINIC DATE: 10/30/1999 ORTHOPEDIC CLINIC SUBJECTIVE: Ms. Burt is a new patient to me. She is referred by Dr. Lloyd Garcia. Ms. Burt is a 39-year-old woman with complaints of right buttock and thigh pain. The pain is primarily anteriorly. She has also had some complaints of pain in the left flank which comes with breathing. She does have some posterior thigh pain in the right leg as well which radiates down the back of the legs to the toes. She states that these symptoms are approximately of four-year duration. They are intermittent. She denies any significant prior injury. She has tried multiple measures of conservative treatment including physical therapy which she continues to do. She has been discontinued from her visits with the therapist where she was doing water aerobics which helped some. She has also tried medications most currently in the form of Valium, Robaxin, Soma, and Flexeril. She has had some sense of giving away. She has had some nocturnal enuresis but no other bowel or bladder control problems. She has been disabled over the past four years primarily dues to these complaints. She has applied for disability but this has not been approved. 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 PAST MEDICAL HISTORY: Significant for some sought of reactive upper airway disease. She also has a significant psychiatric history including major depression and anxiety attacks as well as her prior diagnosis of PTSD. PAST SURGICAL HISTORY: Hysterectomy as well as several bowel explorations. She has also had an appendectomy, a cholecystectomy, as well as two procedures to her right knee. She has had two C sections as well and some sort of a nerve repair to the right small finger. MEDICATIONS: As listed above. ALLERGIES: None. PSYCHOSOCIAL HISTORY: She smokes one pack a day of tobacco. She denies alcohol or nonmedical drug use. REVIEW OF SYSTEMS: Otherwise completely benign. FAMILY HISTORY: Multiple sclerosis in her mother but is otherwise negative. PHYSICAL EXAMINATION: GENERAL: She is a well-formed and moderately obese woman in no acute distress. BACK: Her lumbar exam demonstrates normal flexibility. There are no skin lesions, mass, or areas of induration. There are no surgical incision. EXTREMITIES: Straight leg raises are negative. Pulses are 2+ for dorsalis pedis and symmetric. NEUROLOGIC: 5/5 motor strength in all motor groups with the exception of the right hamstrings which have breakaway weakness. Deep tendon reflexes are symmetric and 2+ at the knees and 1+ at the ankles. There is no clonus, and toes are downgoing. Examination of her right hip does demonstrate significant loss of internal rotation with pain generated in the groin and right buttock with this maneuver. This is the primary pain that she experiences during her daytime activities. X-rays reviewed demonstrated a significant loss of a joint space which is concentric in the right hip. 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 X-rays of her lumbar spine demonstrate mild multilevel degenerative disease without any instability or scoliosis. ASSESSMENT: Ms. Brocks problems are primarily related to hip degenerative arthritis. She may have some sciatica as well given her complaints and the appearance of her spine radiographically. RECOMMENDATIONS: My recommendations are for an MRI of the lumbar spine. Following this, we will give her our definitive recommendations. I think that she may be an appropriate candidate for a total hip replacement despite her young age as she is significantly disabled by her complaints. I agree with Dr. Garcia's assessment that consideration of a hip fusion would likely cause future problems given the already present degenerative disease in the spine. At this point, we will get the MRI to include T10 and below and then have her return to clinic for repeat clinical evaluation. Benson Cooper M.D. / [id number] / [id number] / [id number] / cc: Lloyd Garcia M.D. documented in this encounter Plan of Treatment Not on filedocumented as of this encounter Visit Diagnoses Not on filedocumented in this encounter"
--- OUTSIDE RECORDS SUMMARY | ~2020-04-04 | XMS | Encounter Summary ---
Demographics + + + | Address | [address] | | | [place] [address] | + + + | Home Phone | | + + + | Preferred Language | Unknown | + + + | Marital Status | Single | + + + | Evangelical Affiliation | PRE | + + + [...] Team Providers + +------+ + | Care Firmware Engineer Name | Role | Phone | [...] | Procedures | Roxann Ayala | [place], | | | | | CONSULT TO | [place], [place] | [place] | | | | | ORTHOPEDICS | | | | | | | AND | Phone: | Phone: | | | | | REHABILITATI | [phone] | [phone] | | | | | ON | Fax: | Fax: | | | | | | [phone] | [phone] | +--------+--------+ + + + + Diagnostic [...] | | y | [address] [place] | | | | | Procedures | Roxann Ayala | Research | | | | | MRI SPINE | [place], [place] | Center | | | | | LUMBAR WO | | [place], [place] | | | | | CONT | Phone: | [address] | | | | | | [phone] | Phone: | | | | | | Fax: | [phone] | | | | | | [phone] | Fax: | | | | | | | [phone] | +--------+--------+ + + + + Reason [...] | | | Orthopedics | | | [address] [facility] | | | | | | | [address] | | | | | | | [place], | | | | | | | [place] | | | | | | | [address] | | | | | | | Phone: | | | | | | | [phone] | | | | | | | Fax: | | | | | | | [phone] | +--------+--------+ + + + + Encounter [...] | | | | Mailcode: [id number] | [place], [place] | | | | | [facility] | [address] | | | | | [place], [place] | [phone] | | | | | [address] | | | | | | [phone] | | | +--------+---------+ + + + [...] and plan of care. TYRONE COLBY MD [facility] [address] [place] [address] Mailcode: [id number] Physicians [facility] [id number] Taz Grider M D - 07/06/2010 9:32 [...] of | | | | | | [place]/superior | | | | | | corner, [...]
--- OUTSIDE RECORDS SUMMARY | ~2020-04-04 | XMS | Encounter Summary ---
Demographics + + + | Address | [address] | | | [place] [address] | + + + | Home Phone | | + + + | Preferred Language | Unknown | + + + | Marital Status | Single | + + + | Sikhism Affiliation | PRE | + + + | Race | White | + + + | Ethnic Group | Not or | + + + Author + + + | Author | [facility] | + + + | Organization | [facility] | + + + | [...] Team Providers + +------+ + | Care Paradi Operator Name | Role | Phone | [...] [facility] | | | | | | [address] | | | | | | [address] [facility] | | | | | | [place], [address] | | | | | | [place], [place] | | | | | | [address] | | | | | | [phone] | | | +--------+ + + + [...]
--- OUTSIDE RECORDS SUMMARY | ~2020-04-04 | XMS | Encounter Summary ---
Demographics + + + | Address | [address] | | | [place] [address] | + + + | Home Phone | | + + + | Preferred Language | Unknown | + + + | Marital Status | | + + + | Mandaeism Affiliation | [id number] | + + + | Race | Unknown | + + + | Ethnic Group | Unknown | + + + Author + + + | Author | [facility] | | | and [place] | + + + | Organization | [facility] | | | [...] Team Providers + +------+ + | Care Promotor Group Ticket Sales Name | Role | Phone | + [...] | 2019 | | [address]ITAN | Tax Attorney | blood work done) | | | | [address] [place], [place] | | | | | | [address] | | | | | | [phone] | | | +--------+ + + + [...] Miscellaneous Notes Telephone Encounter - Kina Hendrix Tax Attorney - 07/23/2019 4:48 PM PDTCalled & spoke to patient to let her know per Dr. Medrano that the blood work she got done was not the correct ones that Dr. Medrano needed. I let her know she needed to go to [facility] lab to get her blood work done [...] [place] | | | | | | [id number] | | | | | | | | +--------+---------+ + + + documented as of this encounter Visit Diagnoses Not on filedocumented in this encounter
--- OUTSIDE RECORDS SUMMARY | ~2020-04-04 | XMS | Encounter Summary ---
Demographics + + + | Address | [address] | | | [place] [address] | + + + | Home Phone | | + + + | Preferred Language | Unknown | + + + | Marital Status | Single | + + + | Restorationist Affiliation | PRE | + + + [...] Team Providers + +------+ + | Care Offal Separator Name | Role | Phone | + [...] as of this encounter Progress Notes Interface, Credit Reporting Clerk In - 07/10/2006 1:00 AM PDTCLINIC [...] right total hip replacement. Lloyd Garcia M.D. Unified Communications Engineer [facility] / [id number] / [id number] / [id number] / cc: JILLIAN TODD MD [address] [id number] signed by Interface, Credit Reporting Clerk In at 07/10/2006 1:0 0 AM PDTdocumented in this encounter Plan of Treatment Not on filedocumented as of this encounter Visit Diagnoses Not on filedocumented in this encounter"
--- OUTSIDE RECORDS SUMMARY | ~2020-04-04 | XMS | Encounter Summary ---
Demographics + + + | Address | [address] | | | [place] [address] | + + + | Home Phone [...] Team Providers + +------+ + | Care Sledger Name | Role | Phone | + +------+ + PCP | Unavailable | + +------+ + Encounter Details +--------+ + + + + | Date | Type | Department | Care Team | Description | +--------+ + + + + | 08/31/ | Office | [facility] | Note, [...] as of this encounter Progress Notes Interface, Canopy Inspector In - 04/28/2005 5:10 PM PDTClinic Date: 08/31/2003 Orthopedic The patient called on August 31, 2003, requesting a prescription refill for oxycodone. A prescription refill was granted 50, 5 mg oxycodone was sent. This prescription refill was handled by Mariella Camacho. Dev Fleming M.D. / [id number] / [id number] / [id number] / Tdocumented in this encounter Plan of Treatment Not on filedocumented as of this encounter Visit Diagnoses Not on filedocumented in this encounter"
--- OUTSIDE RECORDS SUMMARY | ~2020-04-04 | XMS | Encounter Summary ---
Demographics + + + | Address | [address] | | | [place] [address] | + + + | Home Phone [...] Team Providers + +------+ + | Care Oracle Drm Consultant Name | Role | Phone | + +------+ + PCP | Unavailable | + +------+ + Encounter Details +--------+ + + + + | Date | Type | Department | Care Team | Description | +--------+ + + + + | 10/01/ | Results | Orthopaedics at | Lloyd Garcia MD | | | 2000 | Only | [facility] [address] | | | | | | [address] | | | | | | Mailcode: [id number] | | | | | | [facility] | | | | | | [place], [place] | | | | | | [address] | | | | | | [phone] | | | +--------+ + + + [...] ARTHROGRAM HIP SUP & | Routin | 10/01/2000 | | Results for this | | INT | e | 9:53 AM | | procedure are in the | | | | PST | | results section. | + +--------+ + + + documented in this encounter Results ARTHROGRAM HIP SUP & INT (10/01/2000 9:53 AM PST) + + + + + + | Component | Value | Ref Range | Performed | Pathologist | | | | | At | Signature | + + + + + + | ARTHROGRAM | Radiologist 1: | | | | | HIP SUP & | DARIN | | | | | INT | MINERadiologist 2: | | | | | | KIM ROBERTS, | | | | | | M.DJuan JoseRIGHT HIP ARTHROGRAM | | | | | | AND INJECTION: | | | | | | 10/01/00 Dictated | | | | | | 10/01/00 INDICATION: The | | | | | | patient is a | | | | | | 40-year-old female with | | | | | | advancedarthritis of the | | | | | | right hip. The | | | | | | patient had a prior | | | | | | right hiparthrogram and | | | | | | injection in May | | | | | | of the prior year | | | | | | withapproximately three | | | | | | months of pain relief. | | | | | | The pain has returned. | | | | | | ALLERGIES: No known | | | | | | drug allergies. | | | | | | OPERATORS: | | | | | | | | | | | | Vikash Garcia, | | | | | | Malcom | | | | | | | | | | | | Kim Roberts M.D. | | | | | | DISCUSSION: The | | | | | | patient's prior study | | | | | | and the clinical notes | | | | | | fromSeptember of 2000 | | | | | | were reviewed. The | | | | | | risks and benefits of | | | | | | theprocedure were | | | | | | discussed with the | | | | | | patient. The patient's | | | | | | questionswere answered | | | | | | and both written and | | | | | | oral consent were | | | | | | obtained. Theright | | | | | | femoral pulse was marked | | | | | | after palpation. The | | | | | | skin entrance sitewas | | | | | | marked after | | | | | | fluoroscopy. This area | | | | | | was prepped and draped | | | | | | inusual sterile fashion. | | | | | | 1% lidocaine was used | | | | | | for local anesthesia. | | | | | | A22 gauge spinal | | | | | | needle was used to | | | | | | access the right joint | | | | | | capsule.Approximately | | | | | | 3-4 cc of Hypaque-60 | | | | | | contrast was then | | | | | | injected.Resistance to | | | | | | the contrast was met. | | | | | | A spot image | | | | | | confirmedintra-articular | | | | | | injection. Contrast | | | | | | did reflux from the | | | | | | needle.Approximately 3.5 | | | | | | to 4.0 cc of a solution | | | | | | (1 cc Celestone and 5 | | | | | | ccMarcaine) was injected | | | | | | in the joint capsule. | | | | | | Dilution of the | | | | | | contrastwas noted. The | | | | | | patient tolerated the | | | | | | procedure well without | | | | | | immediatecomplications. | | | | | | FINDINGS: The joint | | | | | | capsule is contracted. | | | | | | Medial narrowing of | | | | | | theright hip joint space | | | | | | is noted with an | | | | | | osteophytic collar on | | | | | | thefemoral head. There | | | | | | is thinning of both the | | | | | | medial femoral | | | | | | andacetabular articular | | | | | | cartilage. There is | | | | | | limited range of motion | | | | | | ofthe right hip | | | | | | particularly with | | | | | | external rotation. | | | | | | This may be due | | | | | | toimpingement from the | | | | | | osteophytic collar. | | | | | | IMPRESSION: 1. | | | | | | Adhesive capsulitis. | | | | | | 2. Advanced | | | | | | degenerative joint | | | | | | disease of the right | | | | | | hip. 3. The patient | | | | | | stated her pre-procedure | | | | | | pain rating was | | | | | | 4-5/10.After the | | | | | | procedure and ambulating | | | | | | in the fluoroscopy | | | | | | suite, thepatient stated | | | | | | her pain rating was | | | | | | 0/10. The patient was | | | | | | informed tomonitor her | | | | | | symptoms and report | | | | | | these findings to her | | | | | | orthopedicDr. nupur | | | | | | Jose. END OF | | | | | | IMPRESSION: | | | | + + + + + + + + | Specimen | + + | | + + + +---------+ + + | Performing | Address | City/State/Zipcode | Phone Number | | Organization | | | | + +---------+ + + | [facility] DEPARTMENT OF | | | | | RADIOLOGY | | | | + +---------+ + + documented in this encounter Visit Diagnoses Not on filedocumented in this encounter"
--- OUTSIDE RECORDS SUMMARY | ~2020-04-04 | XMS | Encounter Summary ---
Demographics + + + | Address | [address] | | | [place] [address] | + + + | Home Phone [...] + + + | Author | [facility] | + + + | Organization | [facility] | + + + | [...] Team Providers + +------+ + | Care Paper And Prints Restorer Name | Role | Phone | + +------+ + | No Pcp Per Patient | PCP | Unavailable | + +------+ + Encounter Details +--------+ + + + + | Date | Type | Department | Care Team | Description | +--------+ + + + + | 11/05/ | Telephone | Orthopaedics at | Kalyan Arias MD | | | 2008 | | [address] [address] | [address] | | | | | [address] | [address] | | | | | Mailcode: [id number] | [place], [place] | | | | | [facility] | [address] | | | | | [facility] [place] | [phone] | | | | | [address] | | | | | | [phone] | | | +--------+ + + + [...]
--- OUTSIDE RECORDS SUMMARY | ~2020-04-04 | XMS | Encounter Summary ---
Demographics + + + | Address | [address] | | | [place] [address] | + + + | Home Phone [...] Team Providers + +------+ + | Care Insight Leader Name | Role | Phone | + +------+ + PCP | Unavailable | + +------+ + Encounter Details +--------+ + + + + | Date | Type | Department | Care Team | Description | +--------+ + + + + | 09/09/ | Office | [facility] | Note, [...] as of this encounter Progress Notes Interface, Catering Cook In - 02/27/2006 3:05 AM PDTClinic Date: 09/09/2003 Orthopedic Subjective: Ms. Galdamez is well known to Orthopedic Clinic and is status post a right hip cheilectomy for osteoarthritis. She had this surgery performed on August 16, 2003, and it involved a triradiate approach to the right hip with a greater trochanter osteotomy. We also removed osteophytes around the femoral neck region. Postoperatively, the patient did quite well and was sent home. She is here for followup today, and x-rays show that her greater trochanter has evulsed off from her osteotomy site. The patient has been ambulating and is tolerating his minimal to moderate pain with ambulation. She does state that with hip flexion, she does feel some catching at the hip joint. The patient also states that she has been having fevers in the morning with nausea. She is unsure whether her nausea is due to the lack of her gastrointestinal reflux disease medications that she is not taking because it interferes with her docusate and indomethacin. Past Medical History: Significant for asthma and GERD. Previous Surgeries: ( ). Medical Allergies: LIPITOR. Current Medications: Hydrocodone, indomethacin, docusate, and oxycodone. Laboratory Data: Laboratories are pending at this time which include CBC, BEATRICE, and an ESR. Physical Examination General: This is an obese lady in no acute distress. Lungs: Clear. Chest: Clear. Heart: Clear. Extremities: Her right hip incision is clean, dry, and intact except for the proximal 1 cm. This region on the staple line had 3 graciela that came off the inferior edge, and therefore the wound is open superficially. There is some overlying mucus in there, but it is not grossly purulent. ( ) unable to express any fluid from that wound. There is some overlying skin erythema surrounding the skin lines, but it is not fluctuant. Her hip range of motion is from 0 to 90 degrees, and her internal and external rotations are 30 and 40 degrees respectively. Laboratory Data: X-rays, 2-views of the right hip demonstrate that her greater trochanter has evulsed off and is greater than 2 cm displaced. The bone fragment is in the superior posterior position. Assessment and Plan: This is a 43-year-old morbidly obese female status post a right hip cheilectomy with a greater trochanter evulsion. The patient has been consented for a greater trochanter repair which will be completed on Saturday. The patient was seen and examined with Dr. Garcia who agreed with this assessment. The patient will go to [facility] and have her CBC, BEATRICE, and ESR done. Benson Boone M.D. Lloyd Garcia M.D. RT / HS [id number] / [id number] / [id number] / [id number] Watt, Catering Cook In - 02/27/2006 3:05 AM PDTClinic Date: 09/09/2003 History: A 43-year-old morbidly obese female with a long history of right hip degenerative joint disease which became refractory to intermittent cortisone injections and had a large collar of osteophytes on the femoral head with pain at the extremes of motion but relatively well-preserved cartilage in the weight bearing region of the hip joint, is now approximately four weeks (August 16, 2003) status post cheilectomy (removal of osteophytes from the right femoral head via trans-trochanteric approach with debridement of a right anterior acetabular labral tear). Postoperatively she was supposed to be touch down weight bearing with anterior and posterior hip precautions. She has had complaints of intermittent fever and chills but not documented and some maceration of her anterior incision underneath her panniculus in the intertriginous region of her anterior superior iliac spine and in physical therapy has been doing left leg assisted hip flexion exercises with the right hip adducted well past neutral and flexed to ninety degrees as she demonstrates in clinic today. Approximately a week and one-half ago during these exercises she felt a pop directly over her greater trochanter and had increased pain. Physical Examination reveals a pleasant, obese female with a height of five foot and a weight 230 pounds. Her temperature is 99.8, respiratory rate 17, and pain rated at 2-3/10 in severity. Her incision is healing nicely except for a small area over the anterior superior iliac spine, which has a superficial dehiscence with fibrinous exudate in the intertriginous region underneath her panniculus. There is no carin cellulitis or lymphangitis. She is able to fire ankle dorsiflexors, plantar flexors, extensor hallucis longus, flexor hallicus longus, with intact sensation. She is tender over the greater trochanter. X-rays reveal the hip is concentrically reduced but the greater trochanteric osteotomy is pulled off the dual 6.5 mm cancellous lag screws with the screws remaining in position in the femur and the trochanter displaced approximately 5 cm proximally. There is no definitive evidence of any vascular necrosis in the femoral head. The joint space appears to be fairly well preserved. Assessment: Loss of reduction and fixation of right trochanteric osteotomy. Otherwise doing well status post chilectomy of right femoral head and debridement of right acetabular labral tear. Disposition: I have advised her that we recommend over reduction internal fixation of the greater trochanter with a claw plate construct possibly using cables in order to regain hip abduction strength and maximize function and also minimize the risk of recurrent dislocations if she were ever to require a total hip arthroplasty. I believe this should be done sooner rather than later and have indicated her for this in a semi-urgent fashion. Preoperative workup was done today after risks, benefits, and alternatives were discussed and reviewed with the patient in detail including postoperative plans for touch down weight bearing with hip precautions and an abduction orthosis to prevent adduction past neutral. She was measured for this today and will require an order placed on her chart when she presents on Saturday in four days time. She will spend the night in town and see anesthesia tomorrow or prior to surgery on Saturday morning. We will obtain screening laboratory studies including complete blood count with differential, erythrocyte sedimentation rate, and C reactive protein given her history of undocumented fevers and the slight dehiscence in her wound. I, however, do doubt that there is any deep infection. Lloyd Garcia M.D. Criminal Investigative Agent [facility] Jackelyn A [phone] cc: Ninfa Barrientos MD [address] [place] [id number] signed by Interface, Catering Cook In at 6 3:05 AM PDTdocumented in this encounter Plan of Treatment Not on filedocumented as of this encounter Visit Diagnoses Not on filedocumented in this encounter"
--- OUTSIDE RECORDS SUMMARY | ~2020-04-04 | XMS | Encounter Summary ---
Demographics + + + | Address | [address] | | | [place] [address] | + + + | Home Phone [...] Team Providers + +------+ + | Care Data Warehousing Specialist Name | Role | Phone | + +------+ + PCP | Unavailable | + +------+ + Encounter Details +--------+ + + + + | Date | Type | Department | Care Team | Description | +--------+ + + + + | 10/12/ | Office | [facility] | Note, [...] as of this encounter Progress Notes Interface, Plastics Fabrication Supervisor In - 08/31/2006 1:03 AM PSTCLINIC DATE: 10/12/1999 ORTHOPEDIC CLINIC HISTORY OF PRESENT ILLNESS: This 39-year-old obese female with end-stage DJD of the right hip ( ) on a plain radiograph and a CT arthrogram. The CT arthrogram showed that her hip arthritis was not amenable to proximal femoral or acetabular osteotomies. Only short term relief after a hip steroid injection. ( ) very well by comparison until her physical therapy . She has received an insurance letter that indicated that she is only allowed 12 visits and has requested a hearing. She continues to do her home exercise therapy. She is unable to continue with the water aerobics, warm water hot tub exercise program, or bicycle exercises. During her physical therapy, she was almost off all of her pain medications which included Flexeril, Soma, ( ) No.3, and Valium, as well she finds that indomethacin continues to help, and she remains on Neurontin for her mild seizure disorder. She recently had prednisone 20 mg p.o. t.i.d. for three days to help her new found primary care physician determine if she may have what, by her description, sounds like fibromyalgia. She finds that she has also increased low back pain and increased weight since her physical therapy stopped. She states that her weight is now increased to 235 pounds at a height of 5 feet 4 inches. She can now walk only two blocks with a cane in her left hand when previously, when her physical therapy, hydrotherapy, and aqua therapy were in place, she was able to walk up to four blocks or even more. PHYSICAL EXAMINATION: She ambulates with a [id number]-gi-ngexvo right coxalgic gait leaning over the right hip during stance phase. She has 0-120 degrees of hip flexion bilaterally with 40 degrees of external rotation and 20 degrees of internal rotation on the right versus 50 degrees of external rotation and 30 degrees of internal rotation on the left. Straight leg raising is negative. She has ( )/5 iliopsoas and quadriceps strength bilaterally. A 4/5 ankle dorsiflexion of the EHL strength on the right compared to 5/5 on the left, and 4/5 ankle plantar, ( )-/5 ankle plantar flexion and FHL strength on the right compared to 5/5 on the left. There is a subjectively diminished ( ) medial surface of the right foot and dorsum of the left foot, otherwise intact to light touch and normal. Deep tendon reflexes are 2+ bilateral knee jerks, 1+ bilateral ankle jerks and downgoing toes with Babinski, no clonus. ASSESSMENT: End-stage right hip degenerative joint disease and low back pain with radiculopathy on the right. DISPOSITION: I have recommended that she continue her hydrotherapy program and exercise bicycling as it seems to be the only way to make her symptoms tolerable and avoid major surgeries such as hip arthrodesis or total joint replacement. She will return to clinic in three months' time with repeat AP pelvis, AP and frog lateral x-rays of the right hip. In the interval, I have referred her to my partner, Dr. Benson Cooper, for evaluation of her low back and radiculopathy. The patient will be coordinated by her primary care physician. Lloyd Garcia M.D. Senior Engineer, Orthopedics and Rehabilitation / [id number] / [id number] / [id number] / [id number] C: 10/23/1999 [email or web address] cc: Helio Noland M.D. Pending sale to [facility] [id number] Benson Cooper M.D. [facility] Orthopedics Rehabilitation [address], [address] [place] documented in this encounter Plan of Treatment Not on filedocumented as of this encounter Visit Diagnoses Not on filedocumented in this encounter"
--- OUTSIDE RECORDS SUMMARY | ~2020-04-04 | XMS | Encounter Summary ---
Demographics + + + | Address | [address] | | | [place] [address] | + + + | Home Phone | | + + + | Preferred Language | Unknown | + + + | Marital Status | | + + + | Faith Affiliation | [id number] | + + + | Race | Unknown | + + + | Ethnic Group | Unknown | + + + Author + + + | Author | [facility] | | | and [place] | + + + | Organization | [facility] | | | [...] Team Providers + +------+ + | Care State Assessed Properties Director Name | Role | Phone | [...] + + | 08/11/ | Telephone | [facility] | Augie Valdivia MD | Appointment | | 2011 | | GASTROENTEROLOGY | [address], [place] | (schedule procedure) | | | | [address] [place] | [address] [place] | | | | | [address] [place] | [address] | | | | | [address] | | | | | | [phone] | | | +--------+ + + + [...] back if she wants to schedule. [facility] - Lupe Sinha - 08/11/2012 9:26 AM PSTPatient is calling to schedule another procedure after two failed attempts. Patient's information is up to date in [employer]E lectronically signed by Lupe Sinha at 08/11/2012 [...] RODRIGUEZ | | | | | | [address] | | | | | | | | +--------+---------+ + + + documented as of this encounter Visit Diagnoses Not on filedocumented in this encounter"
--- OUTSIDE RECORDS SUMMARY | ~2020-04-04 | XMS | Encounter Summary ---
Demographics + + + | Address | [address] | | | [place] [address] | + + + | Home Phone | | + + + | Preferred Language | Unknown | + + + | Marital Status | Single | + + + | Anglican Affiliation | PRE | + + + [...] Team Providers + +------+ + | Care Document Management Technician Name | Role | Phone | + +------+ + PCP | Unavailable | + +------+ + Encounter Details +--------+ + + + + | Date | Type | Department | Care Team | Description | +--------+ + + + + | 01/21/ | Office | [facility] | Note, [...] as of this encounter Progress Notes Interface, Diabetes Nurse In - 04/15/2006 1:11 AM PDTCLINIC DATE: 01/21/2003 ORTHOPEDIC CLINIC HISTORY: A 42-year-old obese female followed for right hip end-stage degenerative joint disease. She returns to clinic today requesting a 5th fluoroscopically guided hip steroid injection. Her last one was performed on October 05, 2002, by a woman radiologist. She says that it did not work nearly as well as the ones that have been performed previously by one of the male radiologist. She continues to ambulate with a cane all the time. PHYSICAL EXAMINATION: She ambulates with a moderate right coxalgic gait. She remains morbidly obese. She is in good spirits. Her hip range of motion is 0 to 100 degrees on the right with 10 degrees of internal rotation and 30 degrees of external rotation. On the left, she has 0 to 110 degrees with 20 degrees of internal rotation and 40 degrees of external rotation with pain at the extremes of right hip range of motion. DIAGNOSTIC DATA: X-rays: No new x-rays today. ASSESSMENT: A severe right hip degenerative joint disease. DISPOSITION: I have instituted a referral for another hip injection, I suggested she request Dr. De Santiago and if this seems to describe the radiologist who had the most success with her. If she gains acceptable relief, we will continue with injections up to 3-month intervals but not more frequently. If she does not obtain relief, then I believe that she is a candidate for a total hip arthroplasty although we will give consideration to cheilectomy (removal of the peripheral osteocytes from the femoral head with the attendant risks given her relatively young age and her obesity. Lloyd Garcia M.D. Physics Faculty Member of Orthopedics and Rehabilitation / [id number] / [id number] / [id number] / cc: Rinaldi M.D. [address], [place] [id number] signed by Interface, Diabetes Nurse In at 04/15/2006 1:1 1 AM PDTInterface, Diabetes Nurse In - 04/15/2006 1:11 AM PDTCLINIC DATE: 01/21/2003 ORTHOPEDIC CLINIC SUBJECTIVE: Ms. Galdamez is a 42-year-old female with an unfortunately advanced case of right hip degenerative joint disease. She has in the past responded quite well to fluoroscopically-guided hip injections and presents today desiring another. She has had extensive discussions in the past with Dr. Garcia about the surgical options. At this point, we are trying to defer those given her young age. She states that she has probably received about 4 hip injections, and her first 3 were quite helpful; in fact, the third injection offered her pain relief for 6 to 8 months. She received another injection in September 2002 and did not really gain any significant relief from this at all. She did undergo a course of physical therapy after seeing us at the end of September 2002. She really did not notice an improvement with this and continues to complain of frequent mechanical symptoms with her hip locking 4 to 5 times a day. PHYSICAL EXAMINATION GENERAL: She has an obvious limp and uses a cane for ambulation. EXTREMITIES: Examination of her hips on the left side, her extension is 0 degrees to 100 degrees on flexion, her internal rotation is 20 degrees, her external rotation is 40 degrees. On the right hip, her range of motion is from 0 to 100 degrees with internal rotation of 10 degrees and external rotation of 30 degrees. IMAGING: No imaging data was obtained today. ASSESSMENT: Advanced degenerative joint disease in this 42-year-old female. PLAN: We agree with the patient that another hip injection is certainly worth to try. We discussed with her really that she is getting to the end goal of the usefulness of these injections and likely is headed for a total hip in more near than the far term. The patient is aware of this and would like to proceed with an arthrogram and injection. We will see her back in Orthopedic Clinic after her injection. MD Lloyd Merritt M.D. / [id number] / [id number] / [id number] / Tdocumented in this encounter Plan of Treatment Not on filedocumented as of this encounter Visit Diagnoses Not on filedocumented in this encounter"
--- OUTSIDE RECORDS SUMMARY | ~2020-04-04 | XMS | Encounter Summary ---
Demographics + + + | Address | [address] | | | [place] [address] | + + + | Home Phone [...] Team Providers + +------+ + | Care Philosophy And Religion Instructor Name | Role | Phone | + +------+ + | Marta Jenkins PER DIEM RN | PCP | | + +------+ + Encounter Details +--------+ + + + + | Date | Type | Department | Care Team | Description | +--------+ + + + + | 11/20/ | Ancillary | Registration [id number] | Gino Baker MD | | | 2005 | Registratio | [address] | [address] | | | | n | Jamie Mailcode: [id number] [place], | | | | | [place], [place] | [place] [address] | | | | | [address] | | | | | | [phone] | | | +--------+ + + + [...]
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
--- OUTSIDE RECORDS SUMMARY | ~2020-04-04 | XMS | Encounter Summary ---
Demographics + + + | Address | [address] | | | [place] [address] | + + + | Home Phone [...] Author + + + | Author | [facility] | + + + | Organization | [facility] | + + [...] Team Providers + +------+ + | Care Diesel Tractor Operator Name | Role | Phone | [...] as of this encounter Progress Notes Interface, Coordinator Volunteer Services In - 08/06/2006 1:09 AM PSTCLINIC DATE: [...] provided by Dr. Noland. Lloyd Garcia M.D. Soft Hat Binder, Orthopedics and Rehabilitation / [id number] / [id number] / [id number] / [id number] cc: Helio Noland M.D. [address] [place], [place] [address]Syaaiczsfizauh signed by Interface, Coordinator Volunteer Services In at 08/06/2006 1: 09 AM PSTdocumented in this encounter Plan of Treatment Not on filedocumented as of this encounter Visit Diagnoses Not on filedocumented in this encounter
--- OUTSIDE RECORDS SUMMARY | ~2020-04-04 | XMS | Encounter Summary ---
Demographics + + + | Address | [address] | | | [place] [address] | + + + | Home Phone | | + + + | Preferred Language | Unknown | + + + | Marital Status | Single | + + + | Scientologist Affiliation | PRE | + + + [...] Team Providers + +------+ + | Care Reinforcing Iron Worker Helper Name | Role | Phone | [...] as of this encounter Progress Notes Interface, Design Studio Consultant In - 04/28/2005 5:10 PM PDTClinic Date: 08/31/2003 Orthopedic The patient called on August 31, 2003, requesting a prescription refill for oxycodone. A prescription refill was granted 50, 5 mg oxycodone was sent. This prescription refill was handled by Mariella Camacho. Dev Fleming M.D. / [id number] / [id number] / [id number] / Tdocumented in this encounter Plan of Treatment Not on filedocumented as of this encounter Visit Diagnoses Not on filedocumented in this encounter"
--- OUTSIDE RECORDS SUMMARY | ~2020-04-04 | XMS | Encounter Summary ---
Demographics + + + | Address | [address] | | | [place] [address] | + + + | Home Phone [...] Team Providers + +------+ + | Care Professor Of Family Medicine Name | Role | Phone | [...]
--- OUTSIDE RECORDS SUMMARY | ~2020-04-04 | XMS | Encounter Summary ---
Demographics + + + | Address | [address] | | | [place] [address] | + + + | Home Phone | | + + + | Preferred Language | Unknown | + + + | Marital Status | | + + + | Holiness Affiliation | 1076 | + + + | Race | Unknown | + + + | Ethnic Group | Unknown | + + + Author + + + | Author | [facility] | | | and [place] | + + + | Organization | [facility] | | | [...] Team Providers + +------+ + | Care Renderer Name | Role | Phone | + +------+ + PCP | Unavailable | + +------+ + Encounter Details +--------+ + + + + | Date | Type | Department | Care Team | Description | +--------+ + + + + | 12/07/ | [facility] | [facility] | Helio Ahn | | | 2002 | Encounter | [facility] SLEEP | MD [place] [address] | | | | | CENTER [address] | [address] | | | | | [place] | [place] [address] | | | | | [address] | [phone] | | | | | [phone] | | | +--------+ + + + [...] [place] | | | | | | [address] | | | | | | | | +--------+---------+ + + + documented as of this encounter Visit Diagnoses Not on filedocumented in this encounter"
--- OUTSIDE RECORDS SUMMARY | ~2020-04-04 | XMS | Encounter Summary ---
Demographics + + + | Address | [address] | | | [place] [address] | + + + | Home Phone [...] Providers + +------+ + | Care Engineering Vice President Name | Role | Phone | + +------+ + PCP | Unavailable | + +------+ + Encounter Details +--------+ + + + + | Date | Type | Department | Care Team | Description | +--------+ + + + + | 11/15/ | Abstract | Orthopaedics at | Gino Baker MD | | | 2005 | | [facility] [address] | [address] | | | | | [address] | [place], | | | | | Mailcode: [id number] | [place] [address] | | | | | [facility] | | | | | | [place], [place] | | | | | | [address] | | | | | | [phone] | | | +--------+ + + + [...]
--- OUTSIDE RECORDS SUMMARY | ~2020-04-04 | XMS | Encounter Summary ---
Demographics + + + | Address | [address] | | | [place] [address] | + + + | Home Phone | | + + + | Preferred Language | Unknown | + + + | Marital Status | | + + + | Baptist Affiliation | 1076 | + + + | Race | Unknown | + + + | Ethnic Group | Unknown | + + + Author + + + | Author | [facility] | | | and [place] | + + + | Organization | [facility] | | | and [...] Team Providers + +------+ + | Care Grounds Maintenance Worker Name | Role | Phone | [...] + + | 01/24/ | Office | [facility] | Xiang Sepulveda, | Back pain, | | 2019 | Visit | [facility] | DO [address] | unspecified back | | | | [address] | [place], [place] | location, | | | | [address] | [address] | unspecified back | | | | [place], [place] | | pain laterality, | | | | [address] | | unspecified | | | | [phone] | | chronicity (Primary | | | [...] left; | | | | | | nursing home current | | | | | | [...] the other nostri l. Talk to your agent ticketing gate regarding the use of this medicine in children. While this drug m ay be prescribed for children as young as newborns for selected conditions, precautions do a pply. What side effects may I notice from receiving this medicine? Side effects that you should report to your doctor or health intensive care nurse as soon as p ossible: allergic reactions like skin rash, itching or hives, swelling of the face, lips, or tong ue breathing problems fast, irregular heartbeat high blood pressure pain that was controlled by narcotic pain medicine seizures Side effects that usually do not require medical attention (report to your doctor or health intensive care nurse if they continue or are bothersome): anxious [...] phone number of your doctor or health intensive care nurse and local hospital ready. You may need to have additional doses of this medicine. Each nasal spray contains a single dose. Some emergencies may require additional doses. After use, bring the treated person to the nearest hospital or call 911. Make sure the peri [facility] intensive care nurse knows that the person has received an [...] but not limited to phys ical therapy, care transition coordinator, acupuncture, massage therapy, and nutritional health counse [...] Author Status Filed Medication Agreement Antonella Sprague, Hardscape Foreman Active 11/25/2019 10:52 AM Pain Contract- Dr. Sepulveda 11/25/2019 PEG Pain screening tool (Pain, enjoyment, general activity) Total score: (Printable questionnaires in Guinean ) Interpretation of Total Score: PEG scores are used to track changes over time. It should de crease after therapy has begun. Last 4 PEG Scores: No flowsheet data found. Opioid Risk Tool (ORT): Total Score Temp: 36.6 C (97.8 F) Temp Source: Oral Pulse: 111 Resp: 18 BP: (!) 154/91 SpO2: 97 % (From Chronic Pain tab; printable questionnaires in Guinean) Interpretation of Total Score: 0 to 3 [...] ; Surg andrés: Rustam Schmid MD; Location: [facility] MAIN OR Review of Systems Constitutional: [...] reviewed, listed controlled substances are consistent with [facility] prescriptions and patient reported use. [...] imited to physical therapy, massage therapy, acupuncture, care transition coordinator, along with jabari mmended psychological counseling, either privately, or in group sessions offered by private care individuals, community services, or quaker organizations. Appropriate referrals were made at patient [...] and complications with the passage of time. nursing home use is also associated with depressions, [...] and coordination of care with other health medicare sales executive and monitoring labs results, other test results and imagin g including [facility] and/or [facility] prescription monitoring systems. This document has been created using App[employer]imate Voice Recognition software and [employer]. The entry has been reviewed for content and accuracy, but there may still exist "sound alike" chiropractic neurologist word errors and/or unintended additions and deletions. [...] [place] | | | | | | [id number] | | | | | | | [...] pain, chronic, left | + + | terminal worker current use of opiate analgesic Encounter for long-term (current) use of | | other medications | + + documented in this encounter
--- OUTSIDE RECORDS SUMMARY | ~2020-04-04 | XMS | Encounter Summary ---
Demographics + + + | Address | [address] | | | [place] [address] | + + + | Home Phone | | + + + | Preferred Language | Unknown | + + + | Marital Status | Single | + + + | Confucianist Affiliation | PRE | + + + | Race | White | + + + | Ethnic Group | Not or | + + + Author + + + | Author | [facility] | + + + | Organization | [facility] | + + + | [...] Team Providers + +------+ + | Care Spa Receptionist Name | Role | Phone | + +------+ + PCP | Unavailable | + +------+ + Encounter Details +--------+ + + + + | Date | Type | Department | Care Team | Description | +--------+ + + + + | 11/25/ | Office | [facility] | Note, [...] as of this encounter Progress Notes Interface, Precision Dyer In - 04/28/2005 6:17 PM PDTClinic Date: 11/25/2003 Orthopedic History: A 43-year-old woman is followed for a postoperative wound infection of the right lateral hip. She has a long and complex history, but briefly underwent a right hip cheilectomy for degenerative joint disease on August 16, 2003, with loss of fixation of the greater trochanter requiring open reduction, internal fixation on September 13, 2003, and went on to develop this methicillin-sensitive Staphylococcus aureus and anaerobic wound infection for which she underwent serial irrigation and debridement beginning on September 25, 2003, and treated with a wound V. A. C. in the interim until the wound closure with Plastic Surgery on October 08, 2003. She has been maintained on oral Flagyl and intravenous nafcillin since that time with noting some persistent drainage from the hips. She had an ultrasound and CT scans which showed a fluid pocket even though she has been afebrile with normalizing lab values. She has finally gotten the pigtail catheter placed in Interventional Radiology on November 22, 2003, 3 days ago. The fluid showed many PMNs, no epithelial cells, no organisms, and there has been no growth today. The fungal and AFB stains were also negative. She has been emptying her Pacheco-Christensen bulb approximately twice a day producing this yellow serous-tinged fluid. She does report some subjective fevers and chills but nothing documented. She feels the hip overall feels better than prior to her surgery. She continues to have 4 doses of nafcillin at home to complete her 6-week course and is taking Flagyl pills for that duration as well. She notes that she pulled the stitch out that was securing the drain recently. Physical Examination General/Vital Signs: An obese, short woman with a temperature of 97.8, respiratory rate of 18, height 5 feet 4 inches, and weight 248 pounds. Pain is 3 out of 10 in severity. There is no cellulitis or lymphangitis. I am unable to increase the output of the drain by pressure on the wound. The bulb of the Pacheco-Christensen has approximately 10 cc of serous fluid in it. There is flecks of debris floating in it as well. It is not opaque and is slightly cloudy. Procedure: After a sterile prep with alcohol x 3, the skin is numbed with 7 cc of 1% lidocaine without epinephrine, and a 2-0 nylon drain stitch is placed without difficulty securing the drain in place. The drain entry site is cleaned with the alcohol as well, and a clean dressing is applied. Recommendations: The patient is instructed to empty the bulb syringe periodically, to call should she develop any worsening signs of infection such as change in the character of the drainage or color or fevers greater than 101.5. She will complete her course of nafcillin over the next 4 days and then start dicloxacillin 500 mg p.o. q.i.d. with a 6-week supply for cleanup. She will finish the current supply of Flagyl and will not need a refill on that. She will return to clinic in 1-week time. She will not require x-rays at that point, but we will recheck labs as her white count has crept up to 10.7, her erythrocyte sedimentation rate raised from 3 to 39 while her C-reactive protein level went from 1.2 to 0.8 over the interval from November 03, 2003, through November 18, 2003. I plan to leave the drain until the output stops. At that point, we may choose to repeat the ultrasound or a CT scan as well to see if there are any remaining pockets of fluid that were unable to be drained with this technique. I have given her a prescription to have the PICC line removed after her last dose of nafcillin is completed this weekend. Lloyd Garcia M.D. Teacher Emotionally Impaired, Orthopedics and Rehabilitation / [id number] / [id number] / [id number] / [id number] cc: Ninfa Guillen M.D. [address] [place] [address], [place] [id number] signed by Interface, Precision Dyer In at 04/28/2005 6:1 7 PM PDTdocumented in this encounter Plan of Treatment Not on filedocumented as of this encounter Visit Diagnoses Not on filedocumented in this encounter"
--- OUTSIDE RECORDS SUMMARY | ~2020-04-04 | XMS | Encounter Summary ---
Demographics + + + | Address | [address] | | | [place] [address] | + + + | Home Phone | | + + + | Preferred Language | Unknown | + + + | Marital Status | | + + + | Jewish Affiliation | [id number] | + + + [...] Team Providers + +------+ + | Care Warehouse Man Name | Role | Phone | + [...] Description | +--------+---------+ + + + | 07/29/ | Office | [facility] | Xiang Sepulveda, | ABDOMINAL | | 2019 | Visit | [facility] | DO [address] | PAIN-GENERALIZED | | | | [address] | [facility] [place] | (Primary Dx); Other | | | | [address] | [address] | chronic pain; DDD | | | | [place], [place] | | (degenerative disc | | | | [address] | | disease), lumbar; | | | | [phone] | | Facet arthropathy, | | | [...] region; | | | | | | Chronic pain | | | | | | syndrome | +--------+---------+ + + + Social History [...] this encounter Last Filed Vital Signs + +---------+ + + | Vital Sign | Reading | Time Taken | Comments | + +---------+ + + | Blood Pressure | 184/84 | 07/29/2019 11:08 AM | | | | | PDT | | + +---------+ + + | Pulse | 96 | 07/29/2019 11:08 AM | | | | | PDT | | + +---------+ + + | Temperature | - | - | | + +---------+ + + | Respiratory Rate | - | - | | + +---------+ + + | Oxygen Saturation | 99% | 07/29/2019 11:08 AM | | | | | PDT | | + +---------+ + + | Inhaled Oxygen | - | - | | | Concentration | | | | + +---------+ + + | Weight | - | - | | + +---------+ + + | Height | - | - | | + +---------+ + + | Body Mass Index | - | - | | + +---------+ + + documented in this encounter Progress Xiang Narayan DO - 07/29/2019 11:05 AM PDTFormatting of this note might be different fr om the original. CHRONIC PAIN VISIT Patient ID: Shelby Galdamez is a 59 y.o. female (: 1960). Subjective: 59-year-old female seen yesterday for medication evaluation follow-up. Current medication that we give her include Percocet 5/325 1 p.o. every 6 hours, Voltaren 7 5 mg twice a day and as needed Voltaren gel usage Chronic Pain: Shelby Galdamez presents for chronic pain evaluation and management. Today's Pain Scor e: 10 - Worst pain ever/10. Patient states that her pain overall has slightly improved on her current regimen. The patient reports cold worsens symptoms, and heat relieves symptom s. Additional psycho-social events since last visit include: none . The patient's current personal goal of pain management is: "Patient mother would like to be rid of her pain. Bri ent plans on having some hip surgery done after the first of the year on the left side". Th ings she is doing to reach that goal include: Utilizes a roller walker and outpatient physic al therapy. Progress toward meeting that goal has been: fair to poor. Medication FYI Flag Type Author Status Filed Medication Agreement Active 05/20/2019 11:12 Pain Contract- Dr. Sepulveda 01/29/19 PEG Pain screening tool (Pain, enjoyment, general activity) Total score: (Printable questionnaires in Wolof ) Interpretation of Total Score: PEG scores are used to track changes over time. It should de crease after therapy has begun. Last 4 PEG Scores: No flowsheet data found. Opioid Risk Tool (ORT): Total Score Pulse: 96 BP: 184/84 SpO2: 99 % (From Chronic Pain tab; printable questionnaires in Wolof) Interpretation of Total Score: 0 to 3 = Low risk: 6% chance of developing problematic behav iors, 4 to 7 = Moderate risk: 28% chance of developing problematic behaviors, 8 or more = Hi gh risk: 90% chance of developing problematic behaviors. No flowsheet data found. Outpatient Morphine Equivalent Daily Dose (MEDD) 07/29/19 - 08/27/19 None 08/28/19 - 09/27/19 30 mg MEDD Order Name Dose Route [...] factor of 1.5 = 30 mg MEDD 09/28/19 and after None @PAINMEDS@ Current Outpatient Medications: albuterol (VENTOLIN HFA) 90 mcg/puff inhaler, Inhale 1 puff every 6 hours as needed fo r shortness of breath, Disp: , Rfl: albuterol 90 mcg/puff inhaler, Inhale 1 puff every 6 hours as needed for shortness of breath, Disp: , Rfl: amLODIPine (NORVASC) 10 MG tablet, Take 10 mg by mouth., Disp: , Rfl: diclofenac (VOLTAREN) 1% GEL, , Disp: , Rfl: 0 diclofenac (VOLTAREN) 75 mg EC tablet, Take [...] mg by mouth Daily., Disp: , Rfl: [START ON 08/28/2019] oxyCODONE-acetaminophen (PERCOCET) 5-325 mg per tablet, Take 1 t ablet by mouth every 6 hours as needed [...] use: Yes Mood Screening: PHQ-9 Depression Scale (5-9 = Mild, 10-14 = Moderate, 15-19 = Moderately Severe, 20-27 = Severe) Anxiety Scale (5-9 = Mild, 10-14 = Moderate, 15-21 = Severe Anxiety) Additional Problems: Chronic low back pain, chronic hip pain, degenerative joint disease multiple joints multipl e sites, radiculopathy and lumbar region, osteoarthritis of the lumbar spine, chronic pain s yndrome, long-term current use of opioid analgesics History: [...] ; Surg andrés: Rustam Schmid MD; Location: [facility] MAIN OR Review of Systems Objective: Vital Signs: BP 184/84 | Pulse 96 | SpO2 99% Physical Exam No results found for this or any previous visit (from the past 672 hour(s)). @ASSESSMENTPLANBEGIN@ 59-year-old female seen in the office today complaining of left-sided hip pain chronic low back pain. Patient vital signs are stable. She is bowel and bladder continent skin is inta ct her appetite is good. Patient utilize a rolling walker for ambulation. Weightbearing as tolerated both lower ext remities, complained of a significant left-sided hip pain. More than low back pain. Patient with significant degenerative changes about the left hip. Is scheduled for surgery or possible surgery after the first of the year as noted above. Active range of motion bilateral upper extremities within functional limits muscle strength is 4/5. Active range of motion left lower extremity and functionless muscle strength is 4/5 on the right and 3+/5 on the left. Gait is with roller walker as noted above. Transfers are independent. Improved Functional Status for Age Including ADL's, Mobility and Transfers where appropriate Assessment and Plan: Chronic pain issues are being controlled by the current treatment regimen. There have not b een concerns or red flags for improper use/abuse of medications since last visit. The tony becerra has been consistently compliant with her pain contract requirements. VALERIE@ is actively do ing things other than taking medication to help manage her pain. The Patient's ongoing expectations of chronic pain treatment were reviewed Her ongoing functional goals were reviewed. Medication side effects are tolerable. [place] / [place] PDMP reviewed, listed controlled substances are consistent with [facility] prescriptions and patient reported use. Controlled Medications: no change. Refills given as appropriate for the next months, and she will follow up before n ext refill is due. Recent Review Flowsheet Data There is no flowsheet data to display. Pertinent Pain History: Chronic pain related to Helpful treatments: Moist heat Failed treatments: Ice ORT Score = 4 (0-3 = low risk, 4-7 = mod risk, 8+ = high risk) Daily Opioid Dose = Percocet 5/325 1 p.o. every 6 hours Daily Morphine Equivalent Dose (MED) = 30 mg of morphine daily Chronic benzodiazepine use: n Pain Agreement (date): {YES/2019 Visits every: 2 months Drug Screen every: Twice a year Next Refill due: 30 days She will follow-up in this office in 8 weeks. Patient states she followed up with orthopedic surgery one who wants to operate on her left hip early next year. However she needs to stop smoking, to lose weight, and see a nutritio nist. Follow-up: No follow-ups on file. Greater than 50% of the time of this visit was spent counseling the patient regarding medic ation management and/or coordinating care with other practitioners including Allied health p rofessionals and laboratory monitoring. No notes on file @ASSESSMENTPLANEND@ Alternative treatment modalities where discussed and offered to patient including but not l imited to physical therapy, massage therapy, acupuncture, acute care registered nurse, along with jabari mmended psychological counseling, either [...] weeks. This document has been created using [employer] Voice Recognition software and [employer]. The entry has been reviewed for content and accuracy, but there may still exist "sound alike" financial risk manager word errors and/or unintended additions and deletions. If there is any question please contact the author of the document: Xiang Sepulveda DOElectronically sig felisha by Xiang Sepulveda DO at 07/29/2019 11:30 AM PDTdocumented in this encounter Plan of Treatment +--------+---------+ + + + | Date | Type | Specialty | Care Team | Description | +--------+---------+ + + + | 05/23/ | Office | Pain Medicine | Xiang Sepulveda, | | | 2019 | Visit | | DO [address] | | | | | | [place] | | | | | | [phone] | | | | | | | | +--------+---------+ + + + documented as of this encounter Visit Diagnoses + + | Diagnosis | + + | ABDOMINAL PAIN-GENERALIZED - Primary Abdominal pain, generalized | + + | Other chronic pain [...] | | unspecified | + + | Chronic pain syndrome | + + documented in this encounter
--- OUTSIDE RECORDS SUMMARY | ~2020-04-04 | XMS | Encounter Summary ---
Demographics + + + | Address | [address] | | | [place] [address] | + + + | Home Phone [...] Team Providers + +------+ + | Care Strategic Communications Specialist Name | Role | Phone | + +------+ + PCP | Unavailable | + +------+ + Encounter Details +--------+ + + + + | Date | Type | Department | Care Team | Description | +--------+ + + + + | 06/06/ | Office | [facility] | Note, [...] as of this encounter Progress Notes Interface, Chronic Care Nurse In - 08/10/2006 3:02 AM PSTCLINIC DATE: 06/06/2000 ORTHOPEDIC CLINIC HISTORY: A 40-year-old obese female with DJD of the right hip who returns to the clinic for followup. She complains of low back pain which radiates down the posterior medial leg all the way to the medial and plantar foot. She has also had disabling right hip pain, which is now 8-10 in severity, 8 today. Usually, 9-10 in severity. She spends most of her time in bed. It drives to the point of crying. She tries heat packs and cold packs and is having water aerobics, as well as physical therapy. She had the hip injected and had an arthrogram approximately six months ago, which resulted in two weeks of relief, and this past March 2000, she had an interval of two weeks where she had essentially no hip symptoms. She also complains of right knee pain with give-way associated with the pain that happens several times per day, one to two days per week. She continues to take indomethacin two times a day, as well as diflunisal, Neurontin, and trazodone. She has difficulty performing activities of daily living, such as standing to wash the dishes. She is unable to don and doff socks and lace up shoes on her right foot. She has a drivers license but does not drive her own car and requires a large vxrkc-mbbfyeu-rmma vehicle for her friends to yield engineer her own. She is able to ambulate only two to three blocks with a cane in the left hand. PAST MEDICAL HISTORY: Significant for shortness of breath. She reports that she smoked a pack per day for 30 years. REVIEW OF SYSTEMS: Positive for the tingling and weakness in the right lower extremity. She denies any rocking in the right knee. FAMILY HISTORY: Positive for an aunt who requires oxygen therapy. PHYSICAL EXAMINATION: Obese female in no acute distress. Slightly flattened affect. No pain behavior. Ambulates with a moderate right coxalgic gait, leaning over the right hip during stance phase. She has a generalized subjectively decreased sensation in the right lower extremity compared to the left which seems to involve the medial and plantar borders of the foot, as well as the dorsum and lateral surfaces, less so. It extends up the leg medially. She has 4+/5 right iliopsoas, quadriceps strength; 5/5 ankle dorsiflexors; 4/5 EHL, FHL; and 5/5 ankle plantar flexors. This compares to 5/5 throughout on the left lower extremity. Deep tendon reflexes are 2+ knee jerks, 1+ ankle jerks, and downgoing toes bilaterally. She may have half a beat of clonus on the right. Low back is tender to palpation and tenderness extends over the course of the right sciatic nerve. She has a positive straight leg raising test on the right at approximately 45 degrees which increases with Lasegue's maneuver and causes pain to radiate down to the plantar surface of her foot. Right knee range of motion is symmetric, with the left 0-120 degrees. She is stable to varus, valgus, Erika, and anterior and posterior drawer stress testing. She has mild patellofemoral crepitus and mild effusion in the right knee. The right hip range of motion is 0-105 degrees of flexion, 40 degrees of external rotation, 30 degrees of internal rotation, 40 degrees of abduction, and 30 degrees of adduction. She has pain at the extremes of rotation and abduction. On the left hip, it is 120 degrees of flexion, full extension, 60 degrees external rotation and abduction, and 30 degrees internal rotation and adduction which is not painful. X-rays show kozoxubr-cr-pdzebc right hip DJD with joint space narrowing asymmetrically and large marginal osteocytes, most notably superiorly, posteriorly, as well as inferiorly and less so anteriorly. Right knee x-rays show layr-ck-gosnjdqg degenerative changes. No radiopaque loose bodies. AP, lateral, and oblique views of the lumbosacral spine show iovc-jo-zwdceudx facet arthrosis at L3-L4, L4-L5, and L5-S1, right greater than left. Disk spaces are well maintained. There is no spondylolisthesis or spondylolysis. ASSESSMENT: Gonrcsfo-je-kcmjub hypotrophic osteoarthritis of the right hip; nnli-cj-ogzynqea degenerative changes of the right knee; and xdox-yw-iplcznwq, right greater than left, lumbar and lumbosacral facet degenerative joint disease L3-L4, L4-L5 and L5-S1, with right lumbar radiculopathy. DISPOSITION: We have discussed options for the right hip. At this point, nonoperative treatment has essentially been maximized, and I have recommended that we proceed with another injection to see if we can obtain temporization of her pain symptoms. If this fails to relieve her symptoms for a reasonable length of time then options such as chilectomy that is removal of the osteocytes versus total hip arthroplasty have been discussed, with the risks and benefits pertaining to them. For the low back, I believe, we should begin with physical therapy to emphasis strengthening the abdominals and paraspinal muscles, weight loss, back school, and then the stretching the paraspinals and abdominals. She will continue with her hip physical therapy and water hydrotherapy. The knee will benefit from the physical therapy as well. She will also continue with her current medication regime. I have requested that she follow up with her primary care physician regarding her shortness of breath and smoking. She will return to clinic in three months' time for reevaluation, sooner if she fails to respond to the above-listed therapy. If the injection does not relieve her hip pain, I believe, that obtaining EMG-NCV studies to evaluate radiculopathy and perhaps the referred hip pain, may be indicated prior to proceeding with surgical intervention of the right hip. Lloyd Garcia M.D. / [id number] / [id number] / [id number] / [id number] C: 06/12/2000 otilia cc: JILLIAN TODD M.D. PJuan JoseOJuan Jose [place], [place] [id number] signed by Interface, Chronic Care Nurse In at 08/10/2006 3: 02 AM PSTdocumented in this encounter Plan of Treatment Not on filedocumented as of this encounter Visit Diagnoses Not on filedocumented in this encounter"
--- OUTSIDE RECORDS SUMMARY | ~2020-04-04 | XMS | Encounter Summary ---
Demographics + + + | Address | [address] | | | [place] [address] | + + + | Home Phone [...] Team Providers + +------+ + | Care Honing Machine Set Up Operator Name | Role | Phone | + +------+ + | Marta Jenkins DIRECTOR TELEHEALTH | PCP | | + +------+ + Encounter Details +--------+ + + + + | Date | Type | Department | Care Team | Description | +--------+ + + + + | 11/14/ | Ancillary | Registration [id number] | Gino Baker MD | | | 2005 | Registratio | [address] | [address] | | | | n | Jamie Mailcode: [address] [place], | | | | | [place], [place] | [place] [address] | | | | | [address] | | | | | | [phone] | | | +--------+ + + + [...]
--- OUTSIDE RECORDS SUMMARY | ~2020-04-04 | XMS | Encounter Summary ---
Demographics + + + | Address | [address] | | | [place] [address] | + + + | Home Phone | | + + + | Preferred Language | Unknown | + + + | Marital Status | Single | + + + | Tenriism Affiliation | PRE | + + + | Race | White | + + + | Ethnic Group | Not or | + + + Author + + + | Author | [facility] | + + + | Organization | [facility] | + + + | [...] Team Providers + +------+ + | Care Ice Hockey Coach Name | Role | Phone | + +------+ + | Marta Jenkins PROCUREMENT OFFICER | PCP | | + +------+ + [...] | obesity | [address] | | | | | (HCC) | [facility] | Mailcode: | | | | | Procedures | Rd | [facility] | | | | | PHYSICAL | [place], [place] | for Health | | | | | THERAPY | [address] | and Healing, | | | | | REFERRAL | Phone: | Building [address], | | | | | | [phone] | [address] | | | | | | Fax: | [place], [place] | | | | | | [phone] | [address] | | | | | | | Phone: | | | | | | | [phone] | | | | | | | Fax: | | | | | | | [phone] | +--------+--------+ + + + + Encounter Details +--------+ + + + + | Date | Type | Department | Care Team | Description | +--------+ + + + + | 11/19/ | Sheep Farm Manager | Digestive Health | Wanda López ACNP | Morbid obesity (HCC) | | 2019 | | Center at [facility] [address] | [address] | (Primary Dx) | | | | [address] | [address] [place], | | | | | Mailcode: [facility] | [place] [address] | | | | | for Health and | [phone] | | | | | [facility] [address] | | | | | | [place], [place] | | | | | | [address] | | | | | | [phone] | | | +--------+ + + + [...]
--- OUTSIDE RECORDS SUMMARY | ~2020-04-04 | XMS | Encounter Summary ---
Demographics + + + | Address | [address] | | | [place] [address] | + + + | Home Phone | | + + + | Preferred Language | Unknown | + + + | Marital Status | Single | + + + | Jainism Affiliation | PRE | + + + | Race | White | + + + | Ethnic Group | Not or | + + + Author + + + | Author | [facility] | + + + | Organization | [facility] | + + + | Address | Unknown | + + + | Phone | Unavailable | + + + Support + + + + + | Name | Relationship | Address | Phone | + + + + + | Casandra Smith | ROBERTO | [place] | | + + + + + Care Team Providers + +------+ + | Care Freight Router Name | Role | Phone | + [...] as of this encounter Progress Notes Interface, Technology Resource Teacher In - 04/01/2006 3:12 AM PDTCLINIC DATE: [...] a total hip replacement. Lloyd Garcia M.D. Centerless Grinder Tender, Orthopedics and Rehabilitation / [id number] / [id number] / [id number] / cc: Ninfa Guillen M.D. [address] [place] [id number] signed by Interface, Technology Resource Teacher In at 04/01/2006 3:1 2 AM PDTdocumented in this encounter Plan of Treatment Not on filedocumented as of this encounter Visit Diagnoses Not on filedocumented in this encounter"
--- OUTSIDE RECORDS SUMMARY | ~2020-04-04 | XMS | Encounter Summary ---
Demographics + + + | Address | [address] | | | [place] [address] | + + + | Home Phone [...] Team Providers + +------+ + | Care Call Center Team Leader Name | Role | Phone | + +------+ + PCP | Unavailable | + +------+ + Encounter Details +--------+ + + + + | Date | Type | Department | Care Team | Description | +--------+ + + + + | 07/27/ | Cable Installation Manager | Orthopaedics at | Tesfaye Saenz | Osteoarthritis of | | 2007 | | [facility] [address] | [address] Evangelista | Hip; Hip Pain | | | | [address] | | | | | | Mailcode: [address] | | | | | | [facility] | | | | | | [place], [place] | | | | | | [address] | | | | | | [phone] | | | +--------+ + + + [...] X-RAY PELVIS 1 VIEW | Routin | 08/16/2008 | Osteoarthritis of | Results for this | | | e | 12:40 PM | Hip Hip Pain | procedure are in the | | | | PST | | results section. | + +--------+ + + + | X-RAY HIP 2 VIEWS | Routin | 08/16/2008 | Osteoarthritis of | Results for this | | RIGHT | e | 12:39 PM | Hip Hip Pain | procedure are in the | | | | PST | | results section. | + +--------+ + + + documented in this encounter Results X-RAY PELVIS 1 VIEW (08/16/2008 12:40 PM PST) + + + + + + | Component | Value | Ref Range | Performed | Pathologist | | | | | At | Signature | + + + + + + | PELVIS 1 | Pelvis one view and | | | | | VIEW | right hip 2 views | | | | | | 08/16/08Clinical: Hip | | | | | | pain.Comparison: Outside | | | | | | pelvic CT dated | | | | | | 03/19/08.Findings:Pelvis: | | | | | | The osseous structures | | | | | | are intact without | | | | | | fracture or | | | | | | focaldestruction.The | | | | | | sacroiliac joints are | | | | | | unremarkable.Right | | | | | | hip:On the right, there | | | | | | is moderate-severe right | | | | | | hip joint | | | | | | spacenarrowing and | | | | | | subchondral sclerosis | | | | | | with cystic change. | | | | | | There ismarginal | | | | | | femoral head and | | | | | | acetabular spurring. | | | | | | There is | | | | | | postsurgicalchange | | | | | | related to chronic | | | | | | intertrochanteric | | | | | | fracture deformity | | | | | | withresidual | | | | | | postsurgical densities | | | | | | seen in a linear screw | | | | | | track.Multifocal areas | | | | | | of heterotopic | | | | | | ossification are seen in | | | | | | the regionof the right | | | | | | hip and greater | | | | | | trochanter.On the left, | | | | | | there is mild narrowing | | | | | | of the supralateral left | | | | | | hipjoint | | | | | | space.IMPRESSION:Chronic | | | | | | posttraumatic fracture | | | | | | deformity involving the | | | | | | right proximalfemur with | | | | | | chronic heterotopic | | | | | | ossification.Severe | | | | | | right hip degenerative | | | | | | joint diseaseMild left | | | | | | hip degenerative joint | | | | | | disease.I have | | | | | | personally viewed this | | | | | | procedure/exam and | | | | | | reviewed this | | | | | | report.Author: | | | | | | Malcom CARRILLOReviewer: | | | | | | EDGARDO ROBERT M.D.STATUS | | | | | | FINAL / Dr. REYNOSO | | | | | | YESICASTATUS PENDING FINAL | | | | | | APPROVAL / Dr. REYNOSO | | | | | | YESICASTATUS RESULT | | | | | | MODIFIED / Dr. REYNOSO | | | | [...] | | + +---------+ + + | [facility] DEPARTMENT OF | | | | | RADIOLOGY | | | | + +---------+ + + X-RAY HIP 2 VIEWS RIGHT (08/16/2008 12:39 PM PST) + + + + + + | Component | Value | Ref Range | Performed | Pathologist | | | | | At | Signature | + + + + + + | HIP 2 VIEWS | Pelvis one view and | | | | | RIGHT | right hip 2 views | | | | | | 08/16/08Clinical: Hip | | | | | | pain.Comparison: Outside | | | | | | pelvic CT dated | | | | | | 03/19/08.Findings:Pelvis: | | | | | | The osseous structures | | | | | | are intact without | | | | | | fracture or | | | | | | focaldestruction.The | | | | | | sacroiliac joints are | | | | | | unremarkable.Right | | | | | | hip:On the right, there | | | | | | is moderate-severe right | | | | | | hip joint | | | | | | spacenarrowing and | | | | | | subchondral sclerosis | | | | | | with cystic change. | | | | | | There ismarginal | | | | | | femoral head and | | | | | | acetabular spurring. | | | | | | There is | | | | | | postsurgicalchange | | | | | | related to chronic | | | | | | intertrochanteric | | | | | | fracture deformity | | | | | | withresidual | | | | | | postsurgical densities | | | | | | seen in a linear screw | | | | | | track.Multifocal areas | | | | | | of heterotopic | | | | | | ossification are seen in | | | | | | the regionof the right | | | | | | hip and greater | | | | | | trochanter.On the left, | | | | | | there is mild narrowing | | | | | | of the supralateral left | | | | | | hipjoint | | | | | | space.IMPRESSION:Chronic | | | | | | posttraumatic fracture | | | | | | deformity involving the | | | | | | right proximalfemur with | | | | | | chronic heterotopic | | | | | | ossification.Severe | | | | | | right hip degenerative | | | | | | joint diseaseMild left | | | | | | hip degenerative joint | | | | | | disease.I have | | | | | | personally viewed this | | | | | | procedure/exam and | | | | | | reviewed this | | | | | | report.Author: | | | | | | Malcom CARRILLOReviewer: | | | | | | EDGARDO ROBERT M.D.STATUS | | | | | | FINAL / Dr. REYNOSO | | | | | | WONGSTATUS PENDING FINAL | | | | | | APPROVAL / Dr. REYNOSO | | | | | | WONGSTATUS PRELIMINARY - | | | | | | UNSIGNED / Dr. REYNOSO | | | | | | ROBERT | | | | + + + [...]
--- OUTSIDE RECORDS SUMMARY | ~2020-04-04 | XMS | Encounter Summary ---
Demographics + + + | Address | [address] | | | [place] [address] | + + + | Home Phone [...] Team Providers + +------+ + | Care All Round Logger Name | Role | Phone | + [...] HOLLEY MENESES | | | | | [address] | [place], [place] | | | | | [place], [facility] floor | [address] | | | | | [place], [place] | [phone] | | | | | [address] | | | | | | [phone] | | | +--------+ + + + [...]
--- OUTSIDE RECORDS SUMMARY | ~2020-04-04 | XMS | Encounter Summary ---
Demographics + + + | Address | [address] | | | [place] [address] | + + + | Home Phone [...] Providers + +------+ + | Care Tool Keeper Name | Role | Phone | [...] | | | | | osteoarthrit | [address] | [address] | | | | | is of left | [address] | [address] | | | | | hip | [address] | Mailcode: | | | | | Procedures | [place], [place] | Center for | | | | | CONSULT TO | [address] | Health and | | | | | BARIATRIC | Phone: | Healing, | | | | | SURGERY | [phone] | [address] | | | | | | Fax: | [place], [place] | | | | | | [phone] | [address] | | | | | | | Phone: | | | | | | | | | | | | | | Fax: | | | | | | | [phone] | +--------+--------+ + + + + Reason [...] | | | | | | Jamie [place], | | | | | | | [place] | | | | | | | [address] | | | | | | | Phone: | | | | | | | [phone] | | | | | | | Fax: | | | | | | | [phone] | +--------+--------+ + + + + Encounter Details +--------+---------+ + + + | Date | Type | Department | Care Team | Description | +--------+---------+ + + + | 10/02/ | Office | Orthopaedics | Royce Durand, | Primary | | 2019 | Visit | Faculty at Center | [address] | osteoarthritis of | | | | for Health and | [address] | left hip (Primary | | | | Healing [address] | [place], [place] | Dx); Left hip pain; | | | | Ave Mailcode: | [address] | Smoking; Chronic | | | | [facility] [place] for | [phone] | obstructive | | | | Health and Healing, | | pulmonary disease, | | | | [address] | | unspecified COPD | | | | Floor [place], [place] | | type ([facility]); Class 3 | | | | [address] | | severe obesity with | | | | [phone] | | body mass index | | | | | | (BMI) of 40.0 to | | | | | | 44.9 in adult, | | | | | | unspecified obesity | | | | | | type, unspecified | | | | | | whether serious | | | | | | comorbidity present | | | | | | ([facility]) | +--------+---------+ + + + Social History [...] might be different fro m the original. [facility] DEPARTMENT OF ORTHOPAEDICS & REHABILITATION Adult Reconstruction [...] W-FE,OTHER MIN (CENTRUM ORAL), Take by mouth. [place]-3 Fatty Acids-Vitamin E (FISH OIL) 1,000 mg [...] with exam and radiographic evidence consistent with abril, end-stage osteoarthritis. -Status post right total hip [...] The patient was offered a referral to [facility], for non-surgical and potentially surgical o [...]
--- OUTSIDE RECORDS SUMMARY | ~2020-04-04 | XMS | Encounter Summary ---
Demographics + + + | Address | [address] | | | [place] [address] | + + + | Home Phone | | + + + | Preferred Language | Unknown | + + + | Marital Status | Single | + + + | Mu-Ism Affiliation | PRE | + + + [...] Team Providers + +------+ + | Care Community Relations Liaison Name | Role | Phone | + [...] as of this encounter Discharge Summaries Interface, Analytics Director In - 03/06/2006 1:10 AM PDTAdmission Date: [...] time of discharge. She initially had a EMPLOYMENT OFFICE CLERK that was weaned off as well as [...]
--- OUTSIDE RECORDS SUMMARY | ~2020-04-04 | XMS | Encounter Summary ---
Demographics + + + | Address | [address] | | | [place] [address] | + + + | Home Phone [...] Providers + +------+ + | Care Sales And Management Trainee Name | Role | Phone | + +------+ + PCP | Unavailable | + +------+ + Encounter Details +--------+ + + + + | Date | Type | Department | Care Team | Description | +--------+ + + + + | 10/10/ | Office | [facility] | Note, [...] as of this encounter Progress Notes Interface, Costumer Assistant In - 08/03/2006 5:18 AM PSTCLINIC DATE: 10/10/2000 ORTHOPEDIC CLINIC HISTORY OF PRESENT ILLNESS: This 40-year-old obese female follows for right hip DJD. She returns to clinic unexpectedly today. She is not quite sure why she is here. She was to follow up 2 months after her arthrogram on October 01, 2000. She had the arthrogram which showed adhesive capsulitis and advanced degenerative joint disease of the right hip. Her hip pain was 4 to 5 preoperatively, and after injection was 0/10. At this point, it is worse again, but usually it takes her a week and half to get to the point of maximum benefit. On a positive note, her back pain seems to have improved. She continues to ambulate with a cane for severe groin and proximal thigh pain on the right and has difficulty donning and doffing shoes and socks. She has been reevaluated by Physical Therapy and resumed her aqua therapy program. PHYSICAL EXAMINATION: She ambulates with a severe right coxalgic gait. She improves her gait with a cane in the left hand. Hip range of motion on the right is 0 to approximately 105 degrees. On the left, she has approximately 110 to 115 degrees of flexion. She has pain at the extremes of rotation and abduction and adduction at the right hip but not at the left. Range of motion for the right hip is 15 degrees of abduction and adduction, internal and external rotation. On the left hip, she has approximately 30 degrees of internal rotation and 45 degrees of external rotation without pain at the extremes, and approximately 30 degrees of adduction and 45 degrees of abduction without pain at the extremes. X-RAYS: None today. ASSESSMENT: Severe right hip degenerative joint disease. DISPOSITION: I have recommended that she continue with her aquatic exercise program. She gets her medicines from her primary care physician, Dr. Noland. Apparently, she has been cut off her Valium, changed from Soma to Flexeril. She is no longer taking Neurontin but continues with indomethacin 1 tablet p.o. b.i.d. which is helpful. She will return to clinic in 3 months' time for reevaluation. We will obtain an AP and frog lateral x-rays of the right hip at that time. Lloyd Garcia M.D. Coordinator Of Online Programs of Orthopedics and Rehabilitation / [id number] / [id number] / [id number] / [id number] cc: Helio Noland M.D. P.OJuan Jose [facility] [address] [place], [place] [address]Lutmhrlehutbgy signed by Interface, Costumer Assistant In at 08/03/2006 5: 18 AM PSTdocumented in this encounter Plan of Treatment Not on filedocumented as of this encounter Visit Diagnoses Not on filedocumented in this encounter"
--- OUTSIDE RECORDS SUMMARY | ~2020-04-04 | XMS | Encounter Summary ---
Demographics + + + | Address | [address] | | | [place] [address] | + + + | Home Phone [...] Team Providers + +------+ + | Care Event Operations Manager Name | Role | Phone [...] as of this encounter Progress Notes Interface, Watch Dial Printer In - 07/28/2006 5:01 AM PSTCLINIC DATE: [...] from earlier surgical intervention. Lloyd Garcia M.D. Milk Powder Grinder Orthopedics and Rehabilitation / [id number] / [id number] / [id number] / cc: Helio Noland M.D. [address] [place], [place] [address]Nylwusvjlrnjgs signed by Interface, Watch Dial Printer In at 07/28/2006 5: 01 AM PSTInterface, Watch Dial Printer In - 07/28/2006 5:01 AM PSTCLINIC DATE: 01/07/2001 ORTHOPEDIC CLINIC SUBJECTIVE: This lady who is 41-year-old with degenerative joint disease of the right hip comes to follow up with Dr. Garcia today with complaints of pain in the [...] weeks' time. Malcom Her M.D. / SALEEM [id number] / [id number] / [id number] / [id number] Tdocumented in this encounter Plan of Treatment Not on filedocumented as of this encounter Visit Diagnoses Not on filedocumented in this encounter"
--- OUTSIDE RECORDS SUMMARY | ~2020-04-04 | XMS | Encounter Summary ---
Demographics + + + | Address | [address] | | | [place] [address] | + + + | Home Phone [...] Team Providers + +------+ + | Care Retort Unloader Name | Role | Phone | [...] | | | | Mailcode: [id number] | [place], [place] | | | | | [facility] | [address] | | | | | [place], [place] | [phone] | | | | | [address] | | | | | | [phone] | | | +--------+ + + + [...]
--- OUTSIDE RECORDS SUMMARY | ~2020-04-04 | XMS | Encounter Summary ---
Demographics + + + | Address | [address] | | | [place] [address] | + + + | Home Phone [...] Team Providers + +------+ + | Care Service Observer Chief Name | Role | Phone | [...] | | | | Mailcode: [id number] | [facility] [place] | | | | | [facility] | [address] | | | | | [place], [place] | [phone] | | | | | [address] | | | | | | [phone] | | | +--------+ + + + [...]
--- OUTSIDE RECORDS SUMMARY | ~2020-04-04 | XMS | Encounter Summary ---
Demographics + + + | Address | [address] | | | [place] [address] | + + + | Home Phone | | + + + | Preferred Language | Unknown | + + + | Marital Status | Single | + + + | Quaker Affiliation | PRE | + + + [...] Team Providers + +------+ + | Care Mental Health Program Specialist Name | Role | Phone | [...] | Telephone | Orthopaedics at | Kalyan Arais MD | Antibiotic [facility] | | 2008 | | [address] [address] | [address] | | | | | [address] | [address] | | | | | Mailcode: [id number] | [place], [place] | | | | | [facility] | [address] | | | | | [place], [place] | [phone] | | | | | [address] | | | | | | [phone] | | | +--------+ + + + [...]
--- OUTSIDE RECORDS SUMMARY | ~2020-04-04 | XMS | Encounter Summary ---
Demographics + + + | Address | [address] | | | [place] [address] | + + + | Home Phone [...] Team Providers + +------+ + | Care Shared Services Representative Name | Role | Phone | + [...] as of this encounter Progress Notes Interface, Hammer Adjuster In - 04/28/2005 5:10 PM PDT Referred [...]
--- OUTSIDE RECORDS SUMMARY | ~2020-04-04 | XMS | Encounter Summary ---
Demographics + + + | Address | [address] | | | [place] [address] | + + + | Home Phone [...] Team Providers + +------+ + | Care Laboratory Specialist Name | Role | Phone | + +------+ + | No Pcp Per Patient | PCP | Unavailable | + +------+ + Encounter Details +--------+ + + + + | Date | Type | Department | Care Team | Description | +--------+ + + + + | 10/13/ | Hose Turner | Orthopaedics at | Tesfaye Saenz | Osteoarthritis of | | 2008 | | [facility] [address] | [address] | Hip (Primary Dx) | | | | [address] | | | | | | Mailcode: [id number] | | | | | | [facility] | | | | | | [place], [place] | | | | | | [address] | | | | | | [phone] | | | +--------+ + + + [...] | | + +---------+ + + | [facility] DEPARTMENT OF | | | | [...]
--- OUTSIDE RECORDS SUMMARY | ~2020-04-04 | XMS | Encounter Summary ---
Demographics + + + | Address | [address] | | | [place] [address] | + + + | Home Phone [...] Team Providers + +------+ + | Care Merchandising Manager Name | Role | Phone | + +------+ + | Marta Jenkins DATA COMMUNICATIONS SOFTWARE CONSULTANT | PCP | | + +------+ + [...] [id number] | | | | | | [place], [place] | | | | | | [address] | | | | | | [phone] | | | +--------+ + + + [...]
--- OUTSIDE RECORDS SUMMARY | ~2020-04-04 | XMS | Encounter Summary ---
Demographics + + + | Address | [address] | | | [place] [address] | + + + | Home Phone [...] Team Providers + +------+ + | Care Butt Welder Name | Role | Phone | + +------+ + | Travis Mcginnis MD | PCP | | + +------+ + Reason for Referral Diagnostic Testing (Urgent) +--------+--------+ + + + + | Status | Reason | Specialty | Diagnoses / | Referred By | Referred To | | | | | Procedures | Contact | Contact | +--------+--------+ + + + + | Closed | | Cardiology | Procedures | Linda | Kristopher Echo | | | | | | Karen Del Rosario NP | [facility] [address] | | | | | TRANSTHORACI | [address] | | | | | C | [address] | [address] | | | | | [address] | [address] | [place] | | | | | AM, ADULT | [place], [place] | [facility] | | | | | | [address] | floor | | | | | | | [facility] [place] | | | | | | | [address] | | | | | | | Phone: | | | | | | | [phone] | +--------+--------+ + + + + Diagnostic Testing (Urgent) +--------+--------+ + + + + | Status | Reason | Specialty | Diagnoses / | Referred By | Referred To | | | | | Procedures | Contact | Contact | +--------+--------+ + + + + | Closed | | Radiology | Procedures | Linda, | Rad General | | | | | X-RAY | Karen E, ORACLE SOFTWARE ENGINEER | [address] | | | | | ASPIRATION | [address] | [address] | | | | | [place] INJECTION | [facility] | Mailcode: | | | | | MAJOR JOINT | Rd | [facility] | | | | | W/NEEDLE | [facility] [place] | for Health | | | | | PLCMT | [address] | and Healing, | | | | | | | Building [address], | | | | | | | 3rd Floor | | | | | | | [facility] [place] | | | | | | | [address] | | | | | | | Phone: | | | | | | | [phone] | | | | | | | Fax: | | | | | | | [phone] | +--------+--------+ + + + + Reason for Visit + + + | Reason | Comments | + + + | Hip pain | | + + + AUTH/CERT +--------+--------+ + + + + | Status | Reason | Specialty | Diagnoses / | Referred By | Referred To | | | | | Procedures | Contact | Contact | +--------+--------+ + + + + | Closed | | Emergency | | | Emergency | | | | Medicine | | | Dept Hrc | | | | | | | [address] | | | | | | | [address] | | | | | | | Jamie [facility] | | | | | | | [facility] | | | | | | | [place], [place] | | | | | | | [address] | | | | | | | Phone: | | | | | | | [phone] | +--------+--------+ + + + + Encounter Details +--------+ + + + + | Date | Type | Department | Care Team | Description | +--------+ + + + + | 10/12/ | Hospital | [facility] [address] | [place], | | | 2010 - | Encounter | [address] | MD Benson [address] | | | | | [id number] | [address] | | | 10/23/ | | Rose Ocampo | [place], [place] | | | 2010 | | (MNP/[facility]) | [address] | | | | | [place], [place] | [phone] | | | | | [address] | | | | | | | Jillian Bee MD | | | | | | [address] | | | | | | [address] [place], | | | | | | [place] [address] | | | | | | [phone] | | | | | | | | | | | | Tisha Figueroa FNP | | | | | | [address] | | | | | | [address] [place], | | | | | | [place] [address] | | | | | | [phone] | | | | | | | | | | | | Rustam Duenas MD | | | | | | [address] | | | | | | [facility], | | | | | | [place] [address] | | | | | | [phone] | | | | | | | | | | | | Benson Cooper MD | | | | | | [address] [place] | | | | | | [address] [place], [place] | | | | | | [address] | | | | | | | | | | | | Kalyan Arias MD | | | | | | [address] | | | | | | [facility], | | | | | | [place] [address] | | | | | | [phone] | | | | | | | [...] Pressure | 135/85 | 10/23/2010 8:05 AM | | | | | PST | | + + + + + | Pulse | 89 | 10/23/2010 8:05 AM | | | | | PST | | + + + + + | Temperature | 37 C (98.6 F) | 10/23/2010 8:05 AM | | | | | PST | | + + + + + | Respiratory Rate | 20 | 10/23/2010 8:05 AM | | | | | PST | | + + + + + | Oxygen Saturation | 97% | 10/23/2010 8:05 AM | | | | | PST | | + + + + + | Inhaled Oxygen | - | - | | | Concentration | | | | + + + + + | Weight | 120.2 kg (265 lb) | 10/12/2010 8:32 PM | | | | | PST | | + + + + + | Height | 162.6 cm (5' 4") | 10/18/2010 4:00 PM | | | | | PST | | + + + + + | Body Mass Index | 45.49 | 10/12/2010 8:32 PM | | | | | PST | | + + + + + documented in this encounter Discharge Summaries Morgan Buckley MD - 10/20/2010 11:07 AM PSTFormatting of this note might be different f rom the original. [facility] DISCHARGE SUMMARY & INTERDISCIPLINARY INSTRUCTIONS Patient: Chastity Galdamez CSN: [id number] Admission Date: 10/12/2010 Discharge Date: 10/22/2010 Attending Physician: Kalyan Arias MD PCP: Travis Cruz MD Service: [facility] Orthopaedics & Rehabilitation Diagnoses Principal Final Diagnosis: 1. Right total hip arthroplasty MSSA prosthetic infection 2. C. Diff Procedures 1. Right hip irrigation and debridement with removal of plate and cerclage wires. Retentio n of total hip arthroplasty. Diet Regular Vital Signs Per policy PPD for Facility Administer PPD upon arrival Activity Weight bearing as tolerated right lower extremity with posterior hip precautions. Restriction - LLE WBAT Discharge POLST completed No Destination: Destination: Intermediate Facility Condition on Discharge Good Discharge Follow Up Provider and Clinic: Tesfaye Saenz, Orthopaedic Surgery . Appointment: Please call clinic to make appointment for 2 weeks after your surgery for sut ure/staple removal and wound check. Call [phone] to arrange appointment date and time. Outpatient antibiotics: [facility] referral has been made (for outpatient antibiotics). -While on outpatient antibiotics, weekly CBC/diff, CMP, ESR, & CRP should be checked, with results faxed to Dr. Teresa or Elvia SPENCE at [facility] clinic (fax #[phone]). Current Discharge Medication List START taking these medications aspirin EC 325 mg Oral Tablet, Delayed Release (E.C.) Take 1 Tab by mouth two times daily. Take for 6 weeks as prevention of leg blood clots. Qty: 90 Tab Refills: 0 metroNIDAZOLE 500 mg Oral Tablet Take 1 Tab by mouth three times daily. Qty: 63 Tab Refills: 0 nafcillin 1 gram Injection Recon Soln Inject 2 g into the vein (IV) every four hours. Medication to be admixed per infusion phar renata standard policy and/or procedure. Indications: Staphylococcus Aureus Joint Infection Qty: 252 Dose(s) Refills: 0 nicotine 14 mg/24 hr Transdermal Patch 24 hr Apply 1 Patch to skin once daily. Qty: 14 Patch Refills: 1 nystatin 100,000 unit/g Topical Powder by Topical route two times daily. Apply to candidal lesions until lesions have healed. Fo r fungal infection of the feet cause by Lynn species, the powder should be dusted freely on the feet as well as in shoes and socks. Qty: 15 g Refills: 2 CONTINUE these medications which have NOT CHANGED acetaminophen 500 mg Oral Tablet Take 500 mg by mouth every six hours as needed. ALBUTEROL SULFATE 200 MCG CAPS WITH INHALATION DEVICE inhale the contents of one capsule by inhalation route every 4 hours as needed CALCIUM CARBONATE/VITAMIN D3 (CALCIUM 600 + D ORAL) Take by mouth. CYCLOBENZAPRINE HCL (CYCLOBENZAPRINE ORAL) Take by mouth. docusate sodium (DOC-Q-LACE) 100 mg Oral Capsule Take 100 mg by mouth as needed. hydrocodone-acetaminophen 7.5-325 mg Oral Tablet Take 1 Tab by mouth every four hours as needed. Not to exceed 12 tablets per any 24 hour p eriod. (Not to exceed 4000 mg of acetaminophen from all products per 24 hour period.) MULTIVITS W-FE,OTHER MIN (CENTRUM ORAL) Take by mouth. [place]-3 Fatty Acids-Vitamin E (FISH OIL) 1,000 mg Oral Capsule Take by mouth. omeprazole (PRILOSEC) 40 mg Oral Capsule, Delayed Release(E.C.) Take 40 mg by mouth once daily. Other Discharge Orders and Instructions Activity: WB Status: Weight bear as tolerated on both lower extremities. Restrictions: Posterior hip precautions on operative side (no hip flexion >90 degrees, no c rossing your legs, no turning your foot towards the middle of the body (internal rotation)). DVT prophylaxis: You are at increased risk of forming a blood clot following your joint replacement. - We have recommended that you take Aspirin twice daily for 6 weeks following your surgery to decrease this risk. - See discharge prescriptions for administration instructions. - Call orthopedic clinic at [phone] if any persistent, localized swelling that does no t improve with time or elevation or if you have any persistant calf pain, shortness of breat h or chest pain. Wound Care: - If you have sutures or graciela, do not get your wound wet for 7days after your operation. Sponge bath or cover the incision with a waterproof bandage. Keep your incision covered wit h a dressing until there is no discharge on bandage. - Once wound is closed (no drainage), you may shower. Let water run over wound. Pat dry. Do not scrub or soak wound in water. - Avoid using lotions, powders, oils, or ointments on your incision. When to Call: 1. Difficulty breathing, chest pain or unusual shortness of breath 2. Excessive bleeding, drainage, redness, swelling at the operative site (if the wound appe ars to be worse instead of better each day) 3. Fevers, chills, increased pain that is not relieved by pain medications 4. Persistent nausea or vomiting 5. Other specific concerns Please call: - during business hours (8:00am - 4:30pm) - if after hours and ask for the orthopaedic surgery resident client relationship consultant. Additional postop instructions/ What to expect: -Apply ice over the surgical site for 20 minutes at a time as needed for pain. -Avoid alcohol and smoking during the healing process. -You may experience numbness that is usually temporary. -There will be bruising and swelling that should improve in the first 2 weeks. -To reduce likelihood of falling at home, remove throw rugs, loose wires or other objects f rom floor and leave some lights on at night. - Elevate your extremity whenever possible to improve pain and swelling. Pain Management: -You are advised to not drive, operate heavy equipment, or consume alcohol while on prescri ption narcotic pain medication. - Take a stool softener while taking narcotic pain medication in order to prevent constipat ion. - If you are running out of pain medication and feel that you will need more, call [phone] during business hours in order to get a new prescription. Please allow 48 hours for re fills to be processed. - Schedule II narcotics can NOT be called in to a pharmacy. Please arrange for someone to pickling tank operator your prescription or allow additional time for our clinic to mail you requested refi ll. - On-call (after hours) MDs are not permitted to prescribe narcotic pain medications. - Prescriptions will not be available through our office on weekends or holidays. - Don't take NSAIDs (Ibuprofen/Advil/Aleve) until approved by your orthopedic provider Follow Up Appointments: ORTHOPEDICS OUTPATIENT CLINIC: Follow up in 2 weeks (or as previously scheduled). Call [phone] to confirm or schedul e this appointment. PCP: As needed for any medical concerns not related to your surgery. Other: Outpatient Antibiotic Clinic ([facility]) Vital Signs on Discharge: Ht 162.6 cm (5' 4")( < 3 %ile), Wt 120.203 kg (265 lbs)( < 3 %ile ), BP 117/65, Pulse 79, Temperature 36.9 C (98.4 F), RR 18, SpO2 95%, BMI 45.49 kg/(m^2) . Condition on Discharge: Improved Discharging Patient To: Intermediate Facility Date and Time of Discharge Summary Completion: 10/20/2010, 11:07 AM Discharging Provider: Javier Lawrence Discharging Attending: Kalyan Arias MD documented in this enc ounter Medications at Time of Discharge + + [...] + + + +---------+ + + | [place]-3 Fatty | Take by mouth. | | [...] documented as of this encounter Progress Notes Morgan Buckley MD - 10/23/2010 8:34 AM PSTFormatting of this note might be different f rom the original. Ortho Progress Note Hospital Day: 11 Date: 10/23/2010 Patient: CHASTITY Osei TALLY [id number] Interval Hx: Afebrile. Wants to go home. Physical Exam: Ht 162.6 cm (5' 4")( < 3 %ile), Wt 120.203 kg (265 lbs)( < 3 %ile), BP 135/85, Pulse 89, Te mperature 37 C (98.6 F), RR 20, SpO2 97%, BMI 45.49 kg/(m^2). CBC with diff last 72 hours (or 3 results) Recent Labs Basename 10/23/10 0351 10/22/10 0408 10/21/10 0344 WBC 15.5* 15.1* 15.1* HB 10.9* 10.7* 10.8* HCT 33.1* 32.2* 32.4* PLT 684* 606* 616* NEUTROPERC 75* 74* 79* BANDPCT -- -- -- LYMPHPERC 17* 16* 13* MONOPERC 5 6 5 BASOPERC 2 1 0 EOSPERC 2 3 3 Chemistries: Last 72 Hours (or 3 results): Recent Labs Basename 10/23/10 0351 10/22/10 1736 10/22/10 0408 10/21/10 0344 NA 138 -- 139 134 K 4.1 -- 3.8 3.7 CL 102 -- 103 100 BICARB 32* -- 32* 29 BUN 5* -- 5* 9 CR 0.65 -- 0.62 0.57* GLU 146* 136* 190* -- CA 8.7 -- 8.6 8.4* MG -- -- -- -- PO4 -- -- -- -- Physical Exam: Gen: NAD, AAOx3 Incision: clean, dry and intact. No obvious fluid collection or fluctuance. Exam: right Lower Extremity: Sensation is intact to light touch at the sural, saphenous, deep peroneal, superficial paco joshua, and tibial nerve distributions with no exceptions. There is full strength to ankle danielle siflexion, ankle plantar flexion, and extension of the great toe with no exceptions. Dorsali s pedis pulse is 2+ and posterior tibial pulse is 2+. A: 50 y.o. year old woman POD # 7 s/p irrigation and debridement with removal of plate and cer clage wires surrounding right total hip arthroplasty, MSSA, C. Diff+. WBC up and increasing erythema/warmth around incision. P: -Pain control: Well controlled -Weight bearing status: weight-bearing as tolerated with posterior hip precautions -Abx: nafcillin 2g IV q4h per ID recs. -Keep surgical dressing intact for 7 days, may remove at that time and shower if incision i s dry. -Diet: Normal -DVT Prophylaxis: SCDs, ASA 325mg BID -Consults: -ID: [facility] referral has been made (for outpatient antibiotics). Please notify Elvia Putnam 24- 48 hours prior to discharge so that she may arrange timely follow up in [facility] clinic. While o n outpatient antibiotics, weekly CBC/diff, CMP, ESR, & CRP should be checked, with results f axed to Dr. Teresa or Elvia SPENCE at [facility] clinic (fax #[phone]). -Dispo plan: pt requires 3 days of flagyl treatment for C. Diff before discharge to usp facility. D/C to usp facility today oster, Samuel Evangelista MD - 10/22/2010 7:24 AM PST Ortho Progress Note Hospital Day: 10 Date: 10/22/2010 Author: SAMUEL BOWEN MD Patient: CHASTITY Osei TALLY [id number] Interval Hx: Afebrile. WBC up yesterday and today. No diarrhea. Physical Exam: Last Vitals: BP 122/77 | Pulse 92 | Temp 36.7 C (98.1 F) | RR 16 | Ht 1.626 m (5' 4") | Wt 120.203 kg (265 lb) | SpO2 98% | BMI 45.49 kg/(m^2) 24 Hour Vital Min/Max: Systolic (24hrs), Min:109 mmHg, Max:142 mmHg Diastolic (24hrs), Min:53 mmHg, Max:77 mmHg Pulse Av.3 Min: 89 Max: 96 Temp Av.8 C (98.2 F) Min: 36.7 C (98.1 F) Max: 36.8 C (98.3 F) Resp Av.5 Min: 16 Max: 18 SpO2 Av.5 % Min: 95 % Max: 98 % Intake/Output Summary (Last 24 hours) at 10/22/10 0725 Last data filed at 10/22/10 0500 Gross per 24 hour Intake 4060 ml Output 1000 ml Net 3060 ml LABS: Recent Labs Basename 10/22/1040710/21/1034310/20/10 0644 NA 139 134 135 K 3.8 3.7 4.1 CL 103 100 98 BICARB 32* 29 30* BUN 5* 9 11 CR 0.62 0.57* 0.65 GLU 190* 206* 131* CA 8.6 8.4* 8.5* MG -- -- -- PO4 -- -- -- Recent Labs Basename 10/22/1040710/21/1034310/20/10 0644 WBC 15.1* 15.1* 12.6* HB 10.7* 10.8* 11.3* HCT 32.2* 32.4* 33.8* PLT 606* 616* 574* Drains: none Physical Exam: Gen: NAD, AAOx3 Dressings: clean, dry and intact. Warmth over R hip with some erythema as well. No obvio us fluid collection or fluctuance. Exam: right Lower Extremity: Sensation is intact to light touch at the sural, saphenous, deep peroneal, superficial per hicks, and tibial nerve distributions with no exceptions. There is full strength to ankle d orsiflexion, ankle plantar flexion, and extension of the great toe with no exceptions. Dors glenda pedis pulse is 2+ and posterior tibial pulse is 2+. A: 50 y.o. year old woman POD # 6 s/p irrigation and debridement with removal of plate and cer clage wires surrounding right total hip arthroplasty, MSSA, C. Diff+. WBC up and increasin g erythema/warmth around incision. P: -Pain control: Well controlled -Weight bearing status: weight-bearing as tolerated with posterior hip precautions -Abx: nafcillin 2g IV q4h per ID recs. -Keep surgical dressing intact for 7 days, may remove at that time and shower if incision is dry. -Diet: Normal -DVT Prophylaxis: SCDs, ASA 325mg BID -Consults: -ID: [facility] referral has been made (for outpatient antibiotics). Please notify Elvia Putnam 2 4-48 hours prior to discharge so that she may arrange timely follow up in [facility] clinic. While on outpatient antibiotics, weekly CBC/diff, CMP, ESR, & CRP should be checked, with results faxed to Dr. Teresa or Elvia Putnam PA at [facility] clinic (fax #[phone]). -Dispo plan: pt requires 3 days of flagyl treatment for C. Diff before discharge to skill ed nursing facility. Possible D/C to usp facility today Samuel Montaño MD - 10/21/2010 7:16 AM PST Ortho Progress Note Hospital Day: 9 Date: 10/21/2010 Author: SAMUEL BOWEN MD Patient: CHASTITY GALDAMEZ [id number] Interval Hx: Afebrile overnight. Comfortable and without complaint. Physical Exam: Last Vitals: BP 126/67 | Pulse 92 | Temp 36.5 C (97.7 F) | RR 18 | Ht 1.626 m (5' 4") | Wt 120.203 kg (265 lb) | SpO2 94% | BMI 45.49 kg/(m^2) 24 Hour Vital Min/Max: Systolic (24hrs), Min:115 mmHg, Max:126 mmHg Diastolic (24hrs), Min:64 mmHg, Max:81 mmHg Pulse Av.8 Min: 79 Max: 94 Temp Av.9 C (98.5 F) Min: 36.5 C (97.7 F) Max: 37.2 C (99 F) Resp Av.8 Min: 16 Max: 18 SpO2 Av.4 % Min: 94 % Max: 96 % Intake/Output Summary (Last 24 hours) at 10/21/10 0717 Last data filed at 10/21/10 0606 Gross per 24 hour Intake 3730 ml Output 3300 ml Net 430 ml LABS: Recent Labs Basename 10/21/10 0344 10/20/10 0644 10/20/10 0332 NA 134 135 134 K 3.7 4.1 3.9 CL 100 98 97 BICARB 29 30* 31* BUN 9 11 10 CR 0.57* 0.65 0.59* GLU 206* 131* 139* CA 8.4* 8.5* 8.3* MG -- -- -- PO4 -- -- -- Recent Labs Basename 10/21/1034310/20/10 0644 10/20/10 0332 WBC 15.1* 12.6* 13.7* HB 10.8* 11.3* 11.2* HCT 32.4* 33.8* 33.2* PLT 616* 574* 593* Drains: none Physical Exam: Gen: NAD, AAOx3 Dressings: clean, dry and intact. Warmth over R hip but no erythema. Exam: right Lower Extremity: Sensation is intact to light touch at the sural, saphenous, deep peroneal, superficial per hicks, and tibial nerve distributions with no exceptions. There is full strength to ankle d orsiflexion, ankle plantar flexion, and extension of the great toe with no exceptions. Dors glenda pedis pulse is 2+ and posterior tibial pulse is 2+. A: 50 y.o. year old woman POD # 5 s/p irrigation and debridement with removal of plate and cer clage wires surrounding right total hip arthroplasty, MSSA, C. Diff+ doing well. P: -Pain control: Well controlled -Weight bearing status: weight-bearing as tolerated with posterior hip precautions -Abx: nafcillin 2g IV q4h per ID recs. -Keep surgical dressing intact for 7 days, may remove at that time and shower if incision is dry. -Diet: Normal -DVT Prophylaxis: SCDs, ASA 325mg BID -Consults: -ID: [facility] referral has been made (for outpatient antibiotics). Please notify Elvia Putnam 2 4-48 hours prior to discharge so that she may arrange timely follow up in [facility] clinic. While on outpatient antibiotics, weekly CBC/diff, CMP, ESR, & CRP should be checked, with results faxed to Dr. Teresa or Elvia Putnam PA at [facility] clinic (fax #[phone]). -Dispo plan: pt requires 3 days of flagyl treatment for C. Diff before discharge to skill ed nursing facility. Plan to D/C to usp facility on Saturday10/22/10. Lucero Petersen M D - 10/20/2010 4:07 PM PST CLINICAL HOSPITALIST SERVICE ([facility])-PROGRESS NOTE HOSPITAL DAY: 8 Author: LUCERO KNOX MD Subjective: Interval Hx: Lying comfortably in bed. No Nausea or Vomiting. Meds: acetaminophen (aka TYLENOL) tablet 325-650 mg, 325-650 mg, Oral, Q4H PRN albuterol (aka PROVENTIL, VENTOLIN) 90 mcg/Actuation inhaler 2 Puff, 2 Puff, Inhalation, Q4 H PRN aspirin EC tablet 325 mg, 325 mg, Oral, BID bisacodyl (aka DULCOLAX) suppository 10 mg, 10 mg, Rectal, BID PRN cyclobenzaprine (aka FLEXERIL) tablet 5 mg, 5 mg, Oral, TID PRN dextrose 5%-NaCl 0.9%-KCl 20 mEq/L IV, , Intravenous, CONTINUOUS dextrose injection 25 mL, 25 mL, Intravenous, PRN docusate sodium (aka COLACE) capsule 100 mg, 100 mg, Oral, BID glucagon (aka GLUCAGEN) injection 1 mg, 1 mg, Intramuscular, PRN glucose chewable tablet 16 g, 16 g, Oral, Q15MIN PRN HYDROcodone-acetaminophen (aka NORCO) 10-325 mg 1-2 Tab, 1-2 Tab, Oral, Q4H PRN metroNIDAZOLE (aka FLAGYL) tablet 500 mg, 500 mg, Oral, TID morphine injection 2-4 mg, 2-4 mg, Intravenous, Q2H PRN multivitamin 1 Cap, 1 Cap, Oral, DAILY nafcillin IV 2 g, 2 g, Intravenous, Q4H nicotine (aka NICOTROL) 14 mg/24 hr 1 Patch, 1 Patch, Transdermal, DAILY nystatin (aka MYCOSTATIN) powder, , Topical, BID omeprazole (aka PRILOSEC) capsule 40 mg, 40 mg, Oral, DAILY ondansetron (aka ZOFRAN) injection 4 mg, 4 mg, Intravenous, Q12H PRN polyethylene glycol (aka MIRALAX) powder 17 g, 17 g, Oral, DAILY PRN promethazine (aka PHENERGAN) injection 12.5 mg, 12.5 mg, Intravenous, Q6H PRN REMOVE nicotine patch, , Transdermal, DAILY simethicone chew (aka MYLICON) tablet 80 mg, 80 mg, Oral, TID PRN zolpidem (aka AMBIEN) tablet 5 mg, 5 mg, Oral, HS PRN Physical Exam: Last Vitals: BP 117/65 | Pulse 79 | Temp 36.9 C (98.4 F) | RR 18 | Ht 1.626 m (5' 4") | Wt 120.203 kg (265 lb) | SpO2 95% | BMI 45.49 kg/(m^2)FIO2 (%): 30 fraction of O2 (10/14/10 7655)O2 Delivery Device: None (room air) (10/20/10 9636) Intake/Output Summary (Last 24 hours) at 10/20/10 1607 Last data filed at 10/20/10 1300 Gross per 24 hour Intake 2760 ml Output 2675 ml Net 85 ml General Appearance: Alert and Awake Respiratory: Equal air entry b/l, Normal vesicular breath sounds b/l Cardiovascular: 1st and 2nd heart sounds regular rate and rhythm Abdo: soft, bs+ Ext: no edema. LABS REVIEWED: Chemistries: Last 72 Hours (or 3 results): Recent Labs Basename 10/20/10 0644 10/20/10 0332 10/19/10 0837 NA 135 134 133* K 4.1 3.9 4.6 CL 98 97 94* BICARB 30* 31* 30* BUN 11 10 7 CR 0.65 0.59* 0.71 CA 8.5* 8.3* 8.8 MG -- -- -- PO4 -- -- -- CBC with diff last 72 hours (or 3 results) Recent Labs Basename 10/20/10 0644 10/20/10 0332 10/19/10 0837 WBC 12.6* 13.7* 14.0* HB 11.3* 11.2* 12.4 HCT 33.8* 33.2* 37.4 PLT 574* 593* 667* NEUTROPERC 78* 76* 77* BANDPCT -- -- -- LYMPHPERC 14* 15* 15* MONOPERC 5 6 5 BASOPERC 0 1 0 EOSPERC 3 3 3 No Data Recorded LastCBG CBG Result : 168 (10/18/10 1816) CBG Intervention: Other (Comment) (pt does not want insulin coverage) (10/18/10 0736) Labs: HEMOGLOBIN A1C (%) Date Value 10/17/2010 6.0* Lab Results Component Value Date GLU 131* 10/20/2010 GLU 139* 10/20/2010 GLU 121* 10/19/2010 Assessment/Plan:50 year old obese woman with a Right hip prosthesis with hip pain and leuko cytosis. # MSSA Infection of right hip prostesis now removed. Initially admitted with hip pain now i mproving She is currently afebrile, improving leukocytosis. Pt denies using IV drugs. Does smoke mar ijuana. 10/16: 1. Irrigation and debridement, right hip deep soft tissue to bone, length of incision 15 cm. 2. Hardware removal, right proximal femur including clawed cable plate and 2 AO screws and washers. 3. Deep tissue culture and biopsy using Ortho biopsy tray. 10/16: large pocket clear brownish viscous fluid. Tissue cx x 5 sent as well as aspirate Wound cx growing MSSA. On nafcillin. C.diff toxin+ on 10/18. Started oral flagyl. Soft bm's. Duration of treatment per ID. # Sleep Apnea (08/16/2008). Has a h/o of MAMADOU and falls asleep very quickly. Normally uses CPAP but left it at home. She was unable to tolerate CPAP two nights ago. # Hyperglycemia: better controlled. She has no hx of DM. Most likely stress/possible infection. CBG's much improved. Check CBGs qac and hs and cover with SS insulin. Check A1C. # Hypokalemia: K+ of 3.3-->4.1. # Marked hoarseness of voice TSH 3.15 and free T4 0.7. # Intertriginous rash: Likely fungal. Pt is quite obese and has large skin folds. Continue routine hygiene and top ical nystatin powder. # DVT Prophylaxis: Per primary team. Will sign off, please call with Qns. Thank you for allowing us to care for this patient. LUCERO KNOX MD [address] Clinical Hospitalist Service [facility] DEPARTMENT: Hosp ([facility])- [phone] Place of Service: IP - [phone] [facility] [id number] CPT: 45264 Subsequent Visit Exp Prob Foc/Mod Complexity 25 min I spent 25 minutes [id number] with this patient of which greater than 50% was spent on co unseling the patient and or coordination of care. Carolina Bauman PA-C - 10/20/2010 12:05 PM PSTOPAT PLAN OF CARE: Discharge antibiotics: Nafcillin 2g IV q4 hours (may also be delivered as 9g IV q24 hour s via continuous infusion) Anticipated duration of therapy: 6 weeks or longer pending clinical progress. Weekly labs: CBC with diff/ CMP/ ESR/ CRP weekly. Baseline labs were ordered prior to disch arge. Clinic follow-up: OPAT clinic visit in 2 weeks after discharge. Myle will call to schedule appointment after patient is discharged. Please notify OPAT clinic [id number] re: discharge date, where patient is going (i.e. home, SNF ) and home IV provider if applicable. [facility] Department of Infectious Disease Outpatient IV Antibiotic Therapy Clinic (OPAT) Pager ID: [phone] Mail Code O[address] [place] [address] OPAT teaching note: Education and training for patient self management with a PICC line and extended use IV antibiotics I received an OPAT Clinic Consult from the Inpatient Infectious Diseases Service. I have re viewed the records and introduced myself to Chastity Galdamez today. I explained that I am from the OPAT (Outpatient Parenteral Antibiotic Treatment) team, an out-patient branch of the In fectious Diseases team that has been guiding in-patient antibiotic care. I explained that the role of OPAT is to monitor the antibiotics that are being used to peri t the infection. We ensure that the patient is on the right antibiotic(s), that the infectio n is responding to treatment, and I explained that we will be monitoring the patient closely for antibiotic side effects. I explained that duration of antibiotic depends on the type of infection. I reviewed with t he patient that 6 weeks of IV Nafcillin has been recommended for treatment of R JUAN DAVID infectio n with MSSA. We discussed bone infection. I explained how bacteria can make a slime and go to sleep unde r it. They also like to hide on any bone that is devitalized or on prosthetic material. I ex plained that initially we kill the bulk of bacteria, but antibiotics are needed for a long t yuly so that we can kill any remaining bacteria when they wake up. I explained that there is no set duration of antibiotic treatment for bone infection. I explained that we usually sta rt with 6 weeks, but the duration will be customized to each patient according to their clin ical progress. Some patients may need additional antibiotics by mouth after IV antibiotic tr eatment is completed, often for 6 months or longer. Some patients may even need antibiotics by mouth (pills) for life. I explained that at the start of the antibiotic course we typically see patients weekly in clinic, to ensure that the antibiotics are being well-tolerated. I explained that some follo w-up visits may be a combined visit with the surgeon and that if the patient lives far away, or travel is difficult, we will try to do some of the visits by phone and through their PCP . I gave the patient my [facility] business card, and let them know that our clinical cytogeneticist scientist, Tonja susana Keller, will be contacting them after discharge to make their first OPAT clinic follow-up appointment. I explained that labs will be drawn weekly to monitor blood count, kidney function, liver f unction, and to look for signs of antibiotic side effects. We will also be watching inflamma tory markers such as WCC, ESR and CRP to monitor the response of their infection to treatmen t. I explained that the response of an infection to treatment is assessed by clinical marker s (pain, swelling, rednesss, wound healing), by blood tests, and sometimes by follow-up imag ing studies. I reviewed the side effects of Nafcillin. These include stomach upset, and much less common ly - renal failure and leukopenia. Signs of renal failure include change in urine color, dec reased urine output, nausea or vomiting. I explained that side effects may happen at any tao e. I explained that if any evidence of side effects from antibiotics occur, we will ask the [facility] infusion agency to alter the dose of antibiotics, or even change the antibiotics. I expla ined that we will communicate patient's progress and plan with PCP, surgeon, and the home in [place]. I reviewed the possible complications PICC lines with the patient including infection and b lood clots. I reviewed the possible sepsis complications and their symptoms. In particular, fevers, chills or sweats, redness around the PICC site, discomfort in the arm, and flu like symptoms. I discussed that arm or hand swelling can indicate development of a blood clot. I warned that any sign of line infection or blood clot needs urgent attention. I asked the pat ient to report any of these symptoms immediately, and if unable to contact the IV company or OPAT, then to present to the ED. I verified that the patient has a primary care provider, and that they will follow-up with them following this hospitalization in regards to other medical issues such as chronic pain, diabetes, or high blood pressure for which we do not provide any care. I provided the patient with the [facility] welcome letter that reiterates the above teaching. I spent 25 minutes in education and training in patient self management for IV antibiotic a nd PICC line use with greater than 50% spent on counseling and/or coordination of care. [facility] DEPARTMENT: IDC INFECT DIS CONSULT - [phone] Place of Service: Inpatient Date of Service: 10/20/2010 CSN: [id number] Suggested Level of Care: 39524- Subsequent hosp care, 25 min Javier Bunn MD - 10/20/2010 6:30 AM PST ORTHO PROGRESS NOTE 10/20/2010 Hospital Day # 8 Diagnosis: right infected total hip arthroplasty, MSSA POD # 4 s/p irrigation and debridement right total hip arthroplasty with removal of plate a nd cerclage wires S: The patient slept well., Pain was relieved with prescribed pain medicines. Started her home CPAP. Has been out of bed. Normal bladder and bowel function. PICC placed yesterday. O: Last Vitals: BP 104/55 | Pulse 84 | Temp 37.1 C (98.7 F) | RR 16 | Ht 1.626 m (5' 4" ) | Wt 120.203 kg (265 lb) | SpO2 95% | BMI 45.49 kg/(m^2) 24 Hour Vital Min/Max: Pulse Av.4 Min: 84 Max: 107 Temp Av.1 C (98.7 F) Min: 36.9 C (98.4 F) Max: 37.2 C (99 F) Resp Av.8 Min: 16 Max: 20 SpO2 Av.6 % Min: 95 % Max: 98 % Intake/Output Summary (Last 24 hours) at 10/20/10 0630 Last data filed at 10/20/10 0611 Gross per 24 hour Intake 1930 ml Output 2100 ml Net -170 ml Labs: CBC with diff last 72 hours (or 3 results) Recent Labs Basename 10/20/10 0332 10/19/10 0837 10/18/10 0726 WBC 13.7* 14.0* 12.0* HB 11.2* 12.4 11.3* HCT 33.2* 37.4 34.2* PLT 593* 667* 526* Chemistries: Last 72 Hours (or 3 results): Recent Labs Basename 10/20/10 0332 10/19/10 0837 10/18/10 0726 NA 134 133* 134 K 3.9 4.6 3.3* CL 97 94* 95* BICARB 31* 30* 31* BUN 10 7 6 CR 0.59* 0.71 0.55* CA 8.3* 8.8 8.6 MG -- -- -- PO4 -- -- -- INR: Lab Results Component Value Date INR 1.07 11/11/2003 Cultures: intraoperative: MSSA Meds: Current Inpatient Medications acetaminophen (aka TYLENOL) tablet 325-650 mg, 325-650 mg, Oral, Q4H PRN albuterol (aka PROVENTIL, VENTOLIN) 90 mcg/Actuation inhaler 2 Puff, 2 Puff, Inhalation, Q4 H PRN aspirin EC tablet 325 mg, 325 mg, Oral, BID bisacodyl (aka DULCOLAX) suppository 10 mg, 10 mg, Rectal, BID PRN cyclobenzaprine (aka FLEXERIL) tablet 5 mg, 5 mg, Oral, TID PRN dextrose 5%-NaCl 0.9%-KCl 20 mEq/L IV, , Intravenous, CONTINUOUS dextrose injection 25 mL, 25 mL, Intravenous, PRN docusate sodium (aka COLACE) capsule 100 mg, 100 mg, Oral, BID glucagon (aka GLUCAGEN) injection 1 mg, 1 mg, Intramuscular, PRN glucose chewable tablet 16 g, 16 g, Oral, Q15MIN PRN HYDROcodone-acetaminophen (aka NORCO) 10-325 mg 1-2 Tab, 1-2 Tab, Oral, Q4H PRN metroNIDAZOLE (aka FLAGYL) tablet 500 mg, 500 mg, Oral, TID morphine injection 2-4 mg, 2-4 mg, Intravenous, Q2H PRN multivitamin 1 Cap, 1 Cap, Oral, DAILY nafcillin IV 2 g, 2 g, Intravenous, Q4H nicotine (aka NICOTROL) 14 mg/24 hr 1 Patch, 1 Patch, Transdermal, DAILY nystatin (aka MYCOSTATIN) powder, , Topical, BID omeprazole (aka PRILOSEC) capsule 40 mg, 40 mg, Oral, DAILY ondansetron (aka ZOFRAN) injection 4 mg, 4 mg, Intravenous, Q12H PRN polyethylene glycol (aka MIRALAX) powder 17 g, 17 g, Oral, DAILY PRN promethazine (aka PHENERGAN) injection 12.5 mg, 12.5 mg, Intravenous, Q6H PRN REMOVE nicotine patch, , Transdermal, DAILY simethicone chew (aka MYLICON) tablet 80 mg, 80 mg, Oral, TID PRN zolpidem (aka AMBIEN) tablet 5 mg, 5 mg, Oral, HS PRN Drains: none Physical Exam: Gen: NAD, AAOx3 Dressings: clean, dry and intact Exam: right Lower Extremity: Sensation is intact to light touch at the sural, saphenous, deep peroneal, superficial per hicks, and tibial nerve distributions with no exceptions. There is full strength to ankle d orsiflexion, ankle plantar flexion, and extension of the great toe with no exceptions. Dors glenda pedis pulse is 2+ and posterior tibial pulse is 2+. A: 50 y.o. year old woman POD # 4 s/p irrigation and debridement with removal of plate and cer clage wires surrounding right total hip arthroplasty, MSSA, C. Diff+ doing well. P: -Pain control: Well controlled -Weight bearing status: weight-bearing as tolerated with posterior hip precautions -Abx: nafcillin 2g IV q4h per ID recs. -Keep surgical dressing intact for 7 days, may remove at that time and shower if incision is dry. -Diet: Normal -DVT Prophylaxis: SCDs, ASA 325mg BID -Consults: -ID: OPAT referral has been made (for outpatient antibiotics). Please notify Elvia Putnam 2 4-48 hours prior to discharge so that she may arrange timely follow up in [facility] clinic. While on outpatient antibiotics, weekly CBC/diff, CMP, ESR, & CRP should be checked, with results faxed to Dr. Teresa or Elvia SPENCE at [facility] clinic (fax #[phone]). -Please ensure there is a baseline CBC, CMP, ESR, and CRP prior to discharge.--ordered tod ay -Dispo plan: pt requires 3 days of flagyl treatment for C. Diff before discharge to [facility]. [facility]10[facility]22/10. Lucero Petersen MD - 10/19/2010 1:40 PM PST HOSPITALIST INPATIENT PROGRESS NOTE Hospital Day:7 Author; LUCERO KNOX MD Attending Physician: Kalyan Arias MD Subjective/Interval Hx: Lying comfortably in bed. No shortness of breath or chest pain. Fevers/chills: No Cough: No Pain: Denies currently Meds: acetaminophen (aka TYLENOL) tablet 325-650 mg, 325-650 mg, Oral, Q4H PRN albuterol (aka PROVENTIL, VENTOLIN) 90 mcg/Actuation inhaler 2 Puff, 2 Puff, Inhalation, Q4 H PRN aspirin EC tablet 325 mg, 325 mg, Oral, BID bisacodyl (aka DULCOLAX) suppository 10 mg, 10 mg, Rectal, BID PRN cyclobenzaprine (aka FLEXERIL) tablet 5 mg, 5 mg, Oral, TID PRN dextrose 5%-NaCl 0.9%-KCl 20 mEq/L IV, , Intravenous, CONTINUOUS dextrose injection 25 mL, 25 mL, Intravenous, PRN docusate sodium (aka COLACE) capsule 100 mg, 100 mg, Oral, BID glucagon (aka GLUCAGEN) injection 1 mg, 1 mg, Intramuscular, PRN glucose chewable tablet 16 g, 16 g, Oral, Q15MIN PRN HYDROcodone-acetaminophen (aka NORCO) 10-325 mg 1-2 Tab, 1-2 Tab, Oral, Q4H PRN metroNIDAZOLE (aka FLAGYL) tablet 500 mg, 500 mg, Oral, TID morphine injection 2-4 mg, 2-4 mg, Intravenous, Q2H PRN multivitamin 1 Cap, 1 Cap, Oral, DAILY nafcillin IV 2 g, 2 g, Intravenous, Q4H nicotine (aka NICOTROL) 14 mg/24 hr 1 Patch, 1 Patch, Transdermal, DAILY nystatin (aka MYCOSTATIN) powder, , Topical, BID omeprazole (aka PRILOSEC) capsule 40 mg, 40 mg, Oral, DAILY ondansetron (aka ZOFRAN) injection 4 mg, 4 mg, Intravenous, Q12H PRN polyethylene glycol (aka MIRALAX) powder 17 g, 17 g, Oral, DAILY PRN promethazine (aka PHENERGAN) injection 12.5 mg, 12.5 mg, Intravenous, Q6H PRN REMOVE nicotine patch, , Transdermal, DAILY simethicone chew (aka MYLICON) tablet 80 mg, 80 mg, Oral, TID PRN zolpidem (aka AMBIEN) tablet 5 mg, 5 mg, Oral, HS PRN Physical Exam: Last Vitals: BP 92/57 | Pulse 99 | Temp 37.2 C (99 F) | RR 16 | Ht 1.626 m (5' 4") | Wt 120.203 kg (265 lb) | SpO2 95% | BMI 45.49 kg/(m^2)FIO2 (%): 30 fraction of O2 (10/14/10 23 35)O2 Delivery Device: None (room air) (10/19/10 1144) Intake/Output Summary (Last 24 hours) at 10/19/10 1340 Last data filed at 10/19/10 1148 Gross per 24 hour Intake 2690 ml Output 2075 ml Net 615 ml General Appearance: Alert and Awake, obese. Respiratory: Equal air entry b/l, Normal vesicular breath sounds b/l Cardiovascular: 1st and 2nd heart sounds regular rate and rhythm Gastrointestinal: Soft, Nondistended, Nontender, no masses palpable, Bowel sounds+ Musculoskeletal: No pedal edema. LABS REVIEWED: Chemistries: Last 72 Hours (or 3 results): Recent Labs Basename 10/19/10 0837 10/18/10 0726 NA 133* 134 K 4.6 3.3* CL 94* 95* BICARB 30* 31* BUN 7 6 CR 0.71 0.55* CA 8.8 8.6 MG -- -- PO4 -- -- CBC with diff last 72 hours (or 3 results) Recent Labs Basename 10/19/10 0837 10/18/10 0726 WBC 14.0* 12.0* HB 12.4 11.3* HCT 37.4 34.2* PLT 667* 526* NEUTROPERC 77* 73* BANDPCT -- -- LYMPHPERC 15* 18 MONOPERC 5 7 BASOPERC 0 1 EOSPERC 3 2 No Data Recorded LastCBG CBG Result : 168 (10/18/10 1816) CBG Intervention: Other (Comment) (pt does not want insulin coverage) (10/18/10 1726) Lab Results Component Value Date INR 1.07 11/11/2003 Assessment and Plan: Patient Active Problem List Diagnoses Date Noted Leukocytosis [288.60C] 10/14/2010 Hyperglycemia [790.29N] 10/14/2010 Lynn rash of groin [112.89Q] 10/14/2010 HTN [401.9BX] Hip Replacement [V43.64B] 12/16/2008 Sleep Apnea [780.57C] 08/16/2008 Asthma [493.90T] 08/16/2008 Osteoarthritis of Hip [715.95W] 02/11/2006 HIP PAIN [719.45F] 11/15/2005 BACK PAIN [724.5E] 11/15/2005 Assessment/Plan:50 year old obese woman with a Right hip prosthesis with hip pain and leuko cytosis. # MSSA Infection of right hip prostesis now removed. Initially admitted with hip pain now i mproving She is currently afebrile, improving leukocytosis. Pt denies using IV drugs. Does smoke mar ijuana. 10/16: 1. Irrigation and debridement, right hip deep soft tissue to bone, length of incision 15 cm. 2. Hardware removal, right proximal femur including clawed cable plate and 2 AO screws and washers. 3. Deep tissue culture and biopsy using Ortho biopsy tray. 10/16: large pocket clear brownish viscous fluid. Tissue cx x 5 sent as well as aspirate Wound cx growing MSSA. On nafcillin. C.diff toxin+ on 10/18. Started oral flagyl. Soft bm's only. No liquid stools. # Sleep Apnea (08/16/2008). Has a h/o of MAMADOU and falls asleep very quickly. Normally uses CPAP but left it at home. She was unable to tolerate CPAP two nights ago. # Hyperglycemia: better controlled. She has no hx of DM. Most likely stress/possible infection. CBG's much improved. Check CBGs qac and hs and cover with SS insulin. Check A1C. # Hypokalemia: K+ of 3.3. Give 40meq oral x 1 today # Marked hoarseness of voice TSH 3.15 and free T4 0.7. # Intertriginous rash: Likely fungal. Pt is quite obese and has large skin folds. Continue routine hygiene and top ical nystatin powder. # DVT Prophylaxis: Per primary team. LUCERO KNOX MD [employer] Clinical Hospitalist Service Division of [facility] Medicine Department of Medicine [facility] DEPARTMENT: Hosp ([facility])- [phone] Place of Service: - [id number] Modifiers:GC Resident Involved: No CPT: 24627 Subsequent Visit Exp Prob Foc/Mod Complexity 25 min I spent 25 minutes [id number] with this patient of which greater than 50% was spent on co unseling the patient and or coordination of care. Javier Bunn MD - 10/19/2010 6:36 AM PST ORTHO PROGRESS NOTE 10/19/2010 Hospital Day # 7 Diagnosis: MSSA infection right total hip arthroplasty POD # 3 s/p irrigation and debridement with removal of plate and cerclage wires S: The patient slept well., Pain was relieved with prescribed pain medicines. She has been out of bed to chair and comode. O: Last Vitals: BP 112/67 | Pulse 100 | Temp 36.5 C (97.7 F) | RR 18 | Ht 1.626 m (5' 4 ") | Wt 120.203 kg (265 lb) | SpO2 96% | BMI 45.49 kg/(m^2) 24 Hour Vital Min/Max: Pulse Av.7 Min: 81 Max: 111 Temp Av.9 C (98.5 F) Min: 36.5 C (97.7 F) Max: 37.6 C (99.7 F) Resp Av.3 Min: 16 Max: 20 SpO2 Av.7 % Min: 93 % Max: 98 % Intake/Output Summary (Last 24 hours) at 10/19/10 0679 Last data filed at 10/19/10 0422 Gross per 24 hour Intake 2690 ml Output 2250 ml Net 440 ml Labs: CBC with diff last 72 hours (or 3 results) Recent Labs Basename 10/18/10 0726 WBC 12.0* HB 11.3* HCT 34.2* PLT 526* Chemistries: Last 72 Hours (or 3 results): Recent Labs Basename 10/18/10 0726 10/16/10 0700 NA 134 136 K 3.3* 3.8 CL 95* 99 BICARB 31* 31* BUN 6 4* CR 0.55* 0.68 CA 8.6 8.9 MG -- -- PO4 -- -- INR: Lab Results Component Value Date INR 1.07 11/11/2003 Cultures: MSSA C. Diff + Meds: Current Inpatient Medications acetaminophen (aka TYLENOL) tablet 325-650 mg, 325-650 mg, Oral, Q4H PRN albuterol (aka PROVENTIL, VENTOLIN) 90 mcg/Actuation inhaler 2 Puff, 2 Puff, Inhalation, Q4 H PRN bisacodyl (aka DULCOLAX) suppository 10 mg, 10 mg, Rectal, BID PRN ceFAZolin (aka ANCEF) injection 1 g, 1 g, Intravenous, Q8H cyclobenzaprine (aka FLEXERIL) tablet 5 mg, 5 mg, Oral, TID PRN dextrose 5%-NaCl 0.9%-KCl 20 mEq/L IV, , Intravenous, CONTINUOUS dextrose injection 25 mL, 25 mL, Intravenous, PRN docusate sodium (aka COLACE) capsule 100 mg, 100 mg, Oral, BID glucagon (aka GLUCAGEN) injection 1 mg, 1 mg, Intramuscular, PRN glucose chewable tablet 16 g, 16 g, Oral, Q15MIN PRN HYDROcodone-acetaminophen (aka NORCO) 10-325 mg 1-2 Tab, 1-2 Tab, Oral, Q4H PRN metroNIDAZOLE (aka FLAGYL) tablet 500 mg, 500 mg, Oral, TID morphine injection 2-4 mg, 2-4 mg, Intravenous, Q2H PRN multivitamin 1 Cap, 1 Cap, Oral, DAILY nicotine (aka NICOTROL) 14 mg/24 hr 1 Patch, 1 Patch, Transdermal, DAILY nystatin (aka MYCOSTATIN) powder, , Topical, BID omeprazole (aka PRILOSEC) capsule 40 mg, 40 mg, Oral, DAILY ondansetron (aka ZOFRAN) injection 4 mg, 4 mg, Intravenous, Q12H PRN polyethylene glycol (aka MIRALAX) powder 17 g, 17 g, Oral, DAILY PRN promethazine (aka PHENERGAN) injection 12.5 mg, 12.5 mg, Intravenous, Q6H PRN REMOVE nicotine patch, , Transdermal, DAILY simethicone chew (aka MYLICON) tablet 80 mg, 80 mg, Oral, TID PRN zolpidem (aka AMBIEN) tablet 5 mg, 5 mg, Oral, HS PRN Drains: none Physical Exam: Gen: NAD, AAOx3 Dressings: clean, dry and intact Exam: right Lower Extremity: Sensation is intact to light touch at the sural, saphenous, deep peroneal, superficial per hicks, and tibial nerve distributions with no exceptions. There is full strength to ankle d orsiflexion, ankle plantar flexion, and extension of the great toe with no exceptions. Dors glenda pedis pulse is 2+ and posterior tibial pulse is 2+. A: 50 y.o. year old woman POD # 3 s/p irrigation and debridement with removal of plate and cer clage wires, with MSSA doing well. P: -Pain control: Well controlled -Weight bearing status: weight-bearing as tolerated with posterior hip precautions -Abx: changed to Nafcillin 2g q4 IV per ID recs -Diet: Normal -DVT Prophylaxis: SCDs, out of bed, will start ASA 325mg BID as she is slow to mobilize -Consults: ID/Hospitalist/PT/OT -Dispo plan: PICC today. Case management to arrange outpatient antibiotics. Once arranged with OPAT follow-up, and cleared by Hospitalist (due to C. Diff), patient m ay be discharged. Likely tomorrow. Lucero Petersen MD - 10/18/2010 11:21 AM PST HOSPITALIST INPATIENT PROGRESS NOTE Hospital Day:6 Author; LUCERO KNOX MD Attending Physician: Kalyan Arias MD Subjective/Interval Hx: Lying comfortably in bed. No shortness of breath or chest pain. Fevers/chills: No Cough: No Pain: Denies currently Meds: acetaminophen (aka TYLENOL) tablet 325-650 mg, 325-650 mg, Oral, Q4H PRN albuterol (aka PROVENTIL, VENTOLIN) 90 mcg/Actuation inhaler 2 Puff, 2 Puff, Inhalation, Q4 H PRN bisacodyl (aka DULCOLAX) suppository 10 mg, 10 mg, Rectal, BID PRN ceFAZolin (aka ANCEF) injection 1 g, 1 g, Intravenous, Q8H cyclobenzaprine (aka FLEXERIL) tablet 5 mg, 5 mg, Oral, TID PRN dextrose 5%-NaCl 0.9%-KCl 20 mEq/L IV, , Intravenous, CONTINUOUS dextrose injection 25 mL, 25 mL, Intravenous, PRN docusate sodium (aka COLACE) capsule 100 mg, 100 mg, Oral, BID glucagon (aka GLUCAGEN) injection 1 mg, 1 mg, Intramuscular, PRN glucose chewable tablet 16 g, 16 g, Oral, Q15MIN PRN hydrocodone-acetaminophen (aka NORCO) 10-325 mg 1 Tab, 1 Tab, Oral, Q4H PRN morphine injection 2-4 mg, 2-4 mg, Intravenous, Q2H PRN multivitamin 1 Cap, 1 Cap, Oral, DAILY nicotine (aka NICOTROL) 14 mg/24 hr 1 Patch, 1 Patch, Transdermal, DAILY nystatin (aka MYCOSTATIN) powder, , Topical, BID omeprazole (aka PRILOSEC) capsule 40 mg, 40 mg, Oral, DAILY ondansetron (aka ZOFRAN) injection 4 mg, 4 mg, Intravenous, Q12H PRN polyethylene glycol (aka MIRALAX) powder 17 g, 17 g, Oral, DAILY PRN promethazine (aka PHENERGAN) injection 12.5 mg, 12.5 mg, Intravenous, Q6H PRN REMOVE nicotine patch, , Transdermal, DAILY simethicone chew (aka MYLICON) tablet 80 mg, 80 mg, Oral, TID PRN zolpidem (aka AMBIEN) tablet 5 mg, 5 mg, Oral, HS PRN Physical Exam: Last Vitals: BP 137/69 | Pulse 84 | Temp 36.8 C (98.2 F) | RR 18 | Wt 120.203 kg (265 l b) | SpO2 93%FIO2 (%): 30 fraction of O2 (10/14/10 2335)O2 Delivery Device: Nasal cannula (0 10/18/10 0800) Intake/Output Summary (Last 24 hours) at 10/18/10 1121 Last data filed at 10/18/10 0800 Gross per 24 hour Intake 2870 ml Output 4578 ml Net -1708 ml General Appearance: Alert and Awake Respiratory: Equal air entry b/l, Normal vesicular breath sounds b/l Cardiovascular: 1st and 2nd heart sounds regular rate and rhythm Gastrointestinal: Soft, Nondistended, Nontender, no masses palpable, Bowel sounds+ Musculoskeletal: No pedal edema. LABS REVIEWED: Chemistries: Last 72 Hours (or 3 results): Recent Labs Basename 10/18/10 0726 10/16/10 0700 10/16/10 0306 NA 134 136 Not Recd K 3.3* 3.8 Not Recd CL 95* 99 Not Recd BICARB 31* 31* Not Recd BUN 6 4* Not Recd CR 0.55* 0.68 Not Recd CA 8.6 8.9 Not Recd MG -- -- -- PO4 -- -- -- CBC with diff last 72 hours (or 3 results) Recent Labs Basename 10/18/10 0726 WBC 12.0* HB 11.3* HCT 34.2* PLT 526* NEUTROPERC 73* BANDPCT -- LYMPHPERC 18 MONOPERC 7 BASOPERC 1 EOSPERC 2 No Data Recorded LastCBG CBG Result : 150 (10/18/10 0736) CBG Intervention: Other (Comment) (pt does not want insulin coverage) (10/18/10 0736) Lab Results Component Value Date INR 1.07 11/11/2003 Assessment and Plan: Patient Active Problem List Diagnoses Date Noted Leukocytosis [288.60C] 10/14/2010 Hyperglycemia [790.29N] 10/14/2010 Lynn rash of groin [112.89Q] 10/14/2010 HTN [401.9BX] Hip Replacement [V43.64B] 12/16/2008 Sleep Apnea [780.57C] 08/16/2008 Asthma [493.90T] 08/16/2008 Osteoarthritis of Hip [715.95W] 02/11/2006 HIP PAIN [719.45F] 11/15/2005 BACK PAIN [724.5E] 11/15/2005 Assessment/Plan:50 year old obese woman with a Right hip prosthesis with hip pain and leuko cytosis. # MSSA Infection of right hip prostesis now removed. Initially admitted with hip pain now i mproving She is currently afebrile, improving leukocytosis. Pt denies using IV drugs. Does smoke mar ijuana. 10/16: 1. Irrigation and debridement, right hip deep soft tissue to bone, length of incision 15 cm. 2. Hardware removal, right proximal femur including clawed cable plate and 2 AO screws and washers. 3. Deep tissue culture and biopsy using Ortho biopsy tray. 10/16: large pocket clear brownish viscous fluid. Tissue cx x 5 sent as well as aspirate Wound cx growing MSSA. On cefazolin 1g iv q8hrs pending ID recs. # Sleep Apnea (08/16/2008). Has a h/o of MAMADOU and falls asleep very quickly. Normally uses CPAP but left it at home. She was unable to tolerate CPAP two nights ago. # Hyperglycemia: better controlled. She has no hx of DM. Most likely stress/possible infection. CBG's much improved. Check CBGs qac and hs and cover with SS insulin. Check A1C. # Hypokalemia: K+ of 3.3. Give 40meq oral x 1 today # Marked hoarseness of voice TSH 3.15 and free T4 0.7. # Intertriginous rash: Likely fungal. Pt is quite obese and has large skin folds. Continue routine hygiene and top ical nystatin powder. # DVT Prophylaxis: Per primary team. LUCERO KNOX MD [employer] D[employer]antlerdesigner architect Clinical Hospitalist Service Division of Hospital Medicine Department of Medicine [facility] DEPARTMENT: Hosp ([facility])- [phone] Place of Service: IP - Modifiers:GC Resident Involved: No CPT: 89847 Subsequent Visit Exp Prob Foc/Mod Complexity 25 min I spent 25 minutes [id number] with this patient of which greater than 50% was spent on co unseling the patient and or coordination of care. Javier Bunn MD - 10/18/2010 6:30 AM PST ORTHO PROGRESS NOTE 10/18/2010 Hospital Day # 6 Diagnosis: right septic hip (total hip arthroplasty) POD # 2 s/p irrigation and debridement right hip with removal of cerclage wires/plate. S: The patient slept well., Pain was relieved with prescribed pain medicines. Minimally mo bile to bedside comode. O: Last Vitals: BP 162/76 | Pulse 99 | Temp 36.9 C (98.4 F) | RR 16 | Wt 120.203 kg (26 5 lb) | SpO2 96% 24 Hour Vital Min/Max: Pulse Av.2 Min: 80 Max: 99 Temp Av.6 C (97.9 F) Min: 36.4 C (97.5 F) Max: 36.9 C (98.4 F) Resp Av Min: 16 Max: 16 SpO2 Av.8 % Min: 95 % Max: 98 % Intake/Output Summary (Last 24 hours) at 10/18/10 0631 Last data filed at 10/18/10 0439 Gross per 24 hour Intake 3120 ml Output 6278 ml Net -3158 ml Labs: Chemistries: Last 72 Hours (or 3 results): Recent Labs Basename 10/16/10 0700 10/16/10 0306 NA 136 Not Recd K 3.8 Not Recd CL 99 Not Recd BICARB 31* Not Recd BUN 4* Not Recd CR 0.68 Not Recd CA 8.9 Not Recd MG -- -- PO4 -- -- INR: Lab Results Component Value Date INR 1.07 11/11/2003 Cultures: 5 of 6 intraop show S. Aureus. Sensitivities pending. Meds: Current Inpatient Medications acetaminophen (aka TYLENOL) tablet 325-650 mg, 325-650 mg, Oral, Q4H PRN albuterol (aka PROVENTIL, VENTOLIN) 90 mcg/Actuation inhaler 2 Puff, 2 Puff, Inhalation, Q4 H PRN bisacodyl (aka DULCOLAX) suppository 10 mg, 10 mg, Rectal, BID PRN ceFAZolin (aka ANCEF) injection 1 g, 1 g, Intravenous, Q8H cyclobenzaprine (aka FLEXERIL) tablet 5 mg, 5 mg, Oral, TID PRN dextrose 5%-NaCl 0.9%-KCl 20 mEq/L IV, , Intravenous, CONTINUOUS dextrose injection 25 mL, 25 mL, Intravenous, PRN docusate sodium (aka COLACE) capsule 100 mg, 100 mg, Oral, BID glucagon (aka GLUCAGEN) injection 1 mg, 1 mg, Intramuscular, PRN glucose chewable tablet 16 g, 16 g, Oral, Q15MIN PRN hydrocodone-acetaminophen (aka NORCO) 10-325 mg 1 Tab, 1 Tab, Oral, Q4H PRN morphine injection 2-4 mg, 2-4 mg, Intravenous, Q2H PRN multivitamin 1 Cap, 1 Cap, Oral, DAILY nicotine (aka NICOTROL) 14 mg/24 hr 1 Patch, 1 Patch, Transdermal, DAILY nystatin (aka MYCOSTATIN) powder, , Topical, BID omeprazole (aka PRILOSEC) capsule 40 mg, 40 mg, Oral, DAILY ondansetron (aka ZOFRAN) injection 4 mg, 4 mg, Intravenous, Q12H PRN polyethylene glycol (aka MIRALAX) powder 17 g, 17 g, Oral, DAILY PRN promethazine (aka PHENERGAN) injection 12.5 mg, 12.5 mg, Intravenous, Q6H PRN REMOVE nicotine patch, , Transdermal, DAILY simethicone chew (aka MYLICON) tablet 80 mg, 80 mg, Oral, TID PRN zolpidem (aka AMBIEN) tablet 5 mg, 5 mg, Oral, HS PRN Drains: removed today Physical Exam: Gen: NAD, AAOx3 Dressings: clean, dry and intact Exam: right Lower Extremity: Sensation is intact to light touch at the sural, saphenous, deep peroneal, superficial per hicks, and tibial nerve distributions with no exceptions. There is full strength to ankle d orsiflexion, ankle plantar flexion, and extension of the great toe with no exceptions. Dors glenda pedis pulse is 2+ and posterior tibial pulse is 2+. A: 50 y.o. year old woman POD # 2 s/p irrigation and debridement of right total hip arthroplas ty with removal of plate/cerclage wires, doing well. P: -positive intraoperative cultures, ID consult requested. 3 yrs s/p total hip arthroplasty with acute onset of pain and symptoms. Attempts at prosthesis salvage would be preferable. -Pain control: Well controlled -Weight bearing status: weight-bearing as tolerated with posterior hip precautions. -Abx: Ancef Day # 2 -Diet: Normal -DVT Prophylaxis: ASA 325mg BID will be added as patient is not really mobilizing. Contin ue SCDs B/L while in bed. She needs to be out of bed multiple times during the day. PRISCILLA to b/l LE at all times. -Consults: ID/PT/OT/Hospitalist -Dispo plan: pending infectious disease recommendations. Lucero Petersen MD - 10/17/2010 6:25 PM PST HOSPITALIST INPATIENT PROGRESS NOTE Hospital Day:5 Author; LUCERO KNOX MD Attending Physician: Kalyan Arias MD Subjective/Interval Hx: Lying comfortably in bed. No shortness of breath or chest pain. Fevers/chills: No Cough: No Pain: Denies currently Meds: acetaminophen (aka TYLENOL) tablet 325-650 mg, 325-650 mg, Oral, Q4H PRN albuterol (aka PROVENTIL, VENTOLIN) 90 mcg/Actuation inhaler 2 Puff, 2 Puff, Inhalation, Q4 H PRN bisacodyl (aka DULCOLAX) suppository 10 mg, 10 mg, Rectal, BID PRN ceFAZolin (aka ANCEF) injection 1 g, 1 g, Intravenous, Q8H cyclobenzaprine (aka FLEXERIL) tablet 5 mg, 5 mg, Oral, TID PRN dextrose 5%-NaCl 0.9%-KCl 20 mEq/L IV, , Intravenous, CONTINUOUS dextrose injection 25 mL, 25 mL, Intravenous, PRN docusate sodium (aka COLACE) capsule 100 mg, 100 mg, Oral, BID glucagon (aka GLUCAGEN) injection 1 mg, 1 mg, Intramuscular, PRN glucose chewable tablet 16 g, 16 g, Oral, Q15MIN PRN hydrocodone-acetaminophen (aka NORCO) 10-325 mg 1 Tab, 1 Tab, Oral, Q4H PRN morphine injection 2-4 mg, 2-4 mg, Intravenous, Q2H PRN multivitamin 1 Cap, 1 Cap, Oral, DAILY nicotine (aka NICOTROL) 14 mg/24 hr 1 Patch, 1 Patch, Transdermal, DAILY nystatin (aka MYCOSTATIN) powder, , Topical, BID omeprazole (aka PRILOSEC) capsule 40 mg, 40 mg, Oral, DAILY ondansetron (aka ZOFRAN) injection 4 mg, 4 mg, Intravenous, Q12H PRN polyethylene glycol (aka MIRALAX) powder 17 g, 17 g, Oral, DAILY PRN promethazine (aka PHENERGAN) injection 12.5 mg, 12.5 mg, Intravenous, Q6H PRN REMOVE nicotine patch, , Transdermal, DAILY simethicone chew (aka MYLICON) tablet 80 mg, 80 mg, Oral, TID PRN zolpidem (aka AMBIEN) tablet 5 mg, 5 mg, Oral, HS PRN Physical Exam: Last Vitals: BP 137/70 | Pulse 99 | Temp 36.7 C (98 F) | RR 16 | Wt 120.203 kg (265 lb) | SpO2 95%FIO2 (%): 30 fraction of O2 (10/14/10 2335)O2 Delivery Device: Nasal cannula (17/08 1630) Intake/Output Summary (Last 24 hours) at 10/17/10 1826 Last data filed at 10/17/10 1700 Gross per 24 hour Intake 4285 ml Output 7660 ml Net -3375 ml General Appearance: Alert and Awake Respiratory: Equal air entry b/l, Normal vesicular breath sounds b/l Cardiovascular: 1st and 2nd heart sounds regular rate and rhythm Gastrointestinal: Soft, Nondistended, Nontender, no masses palpable, Bowel sounds+ Musculoskeletal: No pedal edema. LABS REVIEWED: Chemistries: Last 72 Hours (or 3 results): Recent Labs Basename 10/16/10 0700 10/16/10 0306 NA 136 Not Recd K 3.8 Not Recd CL 99 Not Recd BICARB 31* Not Recd BUN 4* Not Recd CR 0.68 Not Recd CA 8.9 Not Recd MG -- -- PO4 -- -- CBC with diff last 72 hours (or 3 results) LastCBG CBG Result : 131 (10/16/102111) CBG Intervention: (Pt refused CBG) (10/17/10 0819) Lab Results Component Value Date INR 1.07 11/11/2003 Assessment and Plan: Patient Active Problem List Diagnoses Date Noted Leukocytosis [288.60C] 10/14/2010 Hyperglycemia [790.29N] 10/14/2010 Lynn rash of groin [112.89Q] 10/14/2010 HTN [401.9BX] Hip Replacement [V43.64B] 12/16/2008 Sleep Apnea [780.57C] 08/16/2008 Asthma [493.90T] 08/16/2008 Osteoarthritis of Hip [715.95W] 02/11/2006 HIP PAIN [719.45F] 11/15/2005 BACK PAIN [724.5E] 11/15/2005 Assessment/Plan:50 year old obese woman with a Right hip prosthesis with hip pain and leuko cytosis. # HIP PAIN (11/15/2005) She is currently afebrile, but has leukocytosis and severe pain over the right hip. There i s no other clinically obvious source of infection. Pt denies using IV drugs. Does smoke trudi joon. She has no clinical symptoms or signs of pneumonia, diverticulitis, nephrolithiasis, etc. CT abdomen and Pelvis, reported as worrisome for infection. She had a washout this morn ing. # Leukocytosis (10/14/2010) F/u cbc am. She has leukocytosis with elevated ESR and CRP (signs of infection/inflammation) and is con stipated. The hip seems the most likely source, now s/p debridement. Blood cultures have bee n ordered. CT of abd/pelvis shows fluid around the hip joint favoring Infection. No e/o dive rticulitis or other occult infectious process in the abdomen. stool for C diff for Community Acquired C Diff. # Sleep Apnea (08/16/2008). Has a h/o of MAMADOU and falls asleep very quickly. Normally uses CPAP but left it at home. She was unable to tolerate CPAP two nights ago. # Hyperglycemia: She has no hx of DM. Most likely stress/possible infection. CBG's much improved. Check CBGs qac and hs and cover with SS insulin. Check A1C. # Hyponatremia Improved, 136. Follow BMP closely. # Marked hoarseness of voice TSH 3.15 and free T4 0.7. # Intertriginous rash: Likely fungal. Pt is quite obese and has large skin folds. Continue routine hygiene and top ical nystatin powder. # DVT Prophylaxis: Recommend Prophylactic Enoxaparin as she is quite immobile. Wearing Priscilla Hose. 10/16: 1. Irrigation and debridement, right hip deep soft tissue to bone, length of incision 15 cm. 2. Hardware removal, right proximal femur including clawed cable plate and 2 AO screws and washers. 3. Deep tissue culture and biopsy using Ortho biopsy tray. 10/16: large pocket clear brownish viscous fluid. Tissue cx x 5 sent as well as aspirate LUCERO KNOX MD [employer] Dismantlerdesigner architect Clinical Hospitalist Service Division of [facility] Medicine Department of Medicine [facility] EPIC DEPARTMENT: Hosp ([facility])- [phone] Place of Service: IP - [id number] Modifiers:GC Resident Involved: No CPT: 79122 Subsequent Visit Detailed/High complexity 35 min I spent 40 minutes [id number] with this patient of which greater than 50% was spent on co unseling the patient and or coordination of care. Katiana Martinez RN - 10/17/2010 2:57 PM PSTCulture result: 10/16 at 0950 Site 5 right hip - gram stain - no squamous epithelial cells, rare PMNs, no organisms seen, culture: 1+ staph aureas - prelim ID Site 1 right hip: gram stain moderate PMNs, no squamous epithelial cells, no organisms seen , culture 1+ staph aureas, prelim ID Site 4 right hip - gram stain no PMNs, no squamous epithelial cells, no organisms seen, cul ture 1+ staph aureas, prelim ID Site 2 right hip - gram stain moderate PMNs, no squamous epithelial cells, no organisms see n, culture 1+ staph aureas prelim ID Javier Bunn MD - 10/17/2010 10:55 AM PST ORTHO PROGRESS NOTE 10/17/2010 Hospital Day # 5 Diagnosis: infected right hip POD # 1 s/p irrigation and debridement with removal of hardware S: The patient slept well., Pain was relieved with prescribed pain medicines. Arreaga in. D rain in. Not yet out of bed. O: Last Vitals: BP 117/75 | Pulse 80 | Temp 36.6 C (97.9 F) | RR 16 | Wt 120.203 kg (26 5 lb) | SpO2 97% 24 Hour Vital Min/Max: Pulse Av.2 Min: 71 Max: 102 Temp Av.6 C (97.9 F) Min: 36.4 C (97.5 F) Max: 36.8 C (98.2 F) Resp Av.9 Min: 16 Max: 20 SpO2 Av.5 % Min: 88 % Max: 100 % Intake/Output Summary (Last 24 hours) at 10/17/10 1055 Last data filed at 10/17/10 1000 Gross per 24 hour Intake 4355 ml Output 5890 ml Net -1535 ml Labs: CBC with diff last 72 hours (or 3 results) No results found for this basename: WBC:3,HB:3,HCT:3,PLT:3, in the last 72 hours Chemistries: Last 72 Hours (or 3 results): Recent Labs Basename 10/16/10 0700 10/16/10 0306 10/14/10 1615 NA 136 Not Recd 132* K 3.8 Not Recd 4.1 CL 99 Not Recd 98 BICARB 31* Not Recd 29 BUN 4* Not Recd 7 CR 0.68 Not Recd 0.59* CA 8.9 Not Recd 9.0 MG -- -- -- PO4 -- -- -- INR: Lab Results Component Value Date INR 1.07 11/11/2003 Cultures: show many PMN, no organisms on gram stain. Cultures pending. Meds: Current Inpatient Medications acetaminophen (aka TYLENOL) tablet 325-650 mg, 325-650 mg, Oral, Q4H PRN albuterol (aka PROVENTIL, VENTOLIN) 90 mcg/Actuation inhaler 2 Puff, 2 Puff, Inhalation, Q4 H PRN bisacodyl (aka DULCOLAX) suppository 10 mg, 10 mg, Rectal, BID PRN ceFAZolin (aka ANCEF) injection 1 g, 1 g, Intravenous, Q8H cyclobenzaprine (aka FLEXERIL) tablet 5 mg, 5 mg, Oral, TID PRN dextrose 5%-NaCl 0.9%-KCl 20 mEq/L IV, , Intravenous, CONTINUOUS dextrose injection 25 mL, 25 mL, Intravenous, PRN docusate sodium (aka COLACE) capsule 100 mg, 100 mg, Oral, BID glucagon (aka GLUCAGEN) injection 1 mg, 1 mg, Intramuscular, PRN glucose chewable tablet 16 g, 16 g, Oral, Q15MIN PRN hydrocodone-acetaminophen (aka NORCO) 10-325 mg 1 Tab, 1 Tab, Oral, Q4H PRN morphine injection 2-4 mg, 2-4 mg, Intravenous, Q2H PRN multivitamin 1 Cap, 1 Cap, Oral, DAILY nicotine (aka NICOTROL) 14 mg/24 hr 1 Patch, 1 Patch, Transdermal, DAILY nystatin (aka MYCOSTATIN) powder, , Topical, BID omeprazole (aka PRILOSEC) capsule 40 mg, 40 mg, Oral, DAILY ondansetron (aka ZOFRAN) injection 4 mg, 4 mg, Intravenous, Q12H PRN polyethylene glycol (aka MIRALAX) powder 17 g, 17 g, Oral, DAILY PRN promethazine (aka PHENERGAN) injection 12.5 mg, 12.5 mg, Intravenous, Q6H PRN REMOVE nicotine patch, , Transdermal, DAILY simethicone chew (aka MYLICON) tablet 80 mg, 80 mg, Oral, TID PRN zolpidem (aka AMBIEN) tablet 5 mg, 5 mg, Oral, HS PRN Drains: Hemovac x1. Output 110cc Physical Exam: Gen: NAD, AAOx3 Dressings: clean, dry and intact Exam: right Lower Extremity: Sensation is intact to light touch at the sural, saphenous, deep peroneal, superficial per hicks, and tibial nerve distributions with no exceptions. There is full strength to ankle d orsiflexion, ankle plantar flexion, and extension of the great toe with no exceptions. Dors glenda pedis pulse is 2+ and posterior tibial pulse is 2+. A: 50 y.o. year old woman POD # 1 s/p irrigation and debridement, removal of hardware Right h ip, doing well. P: -Pain control: Well controlled -Weight bearing status: weight-bearing as tolerated right lower extremity -Abx: Ancef until cultures return. If cultures positive, will require ID consult -Diet: Normal -DVT Prophylaxis: out of bed, SCD, PRISCILLA hose bilateral lower extremities. -Dispo plan: pending culture results. Jillian Cohen MD - 10/16/2010 9:36 PM PST [facility] ORTHOPAEDIC SURGERY POST OPERATIVE CHECK IDENTIFICATION: Patient: Chastity Galdamez Author: JILLIAN FARFAN MD Attending Physician: Kalyan Arias Date & Time: 10/16/2010 9:36 PM The patient is status post I&D, hardware removal right hip, performed by Kalyan Arias and as sistants The patient notes no complaints. VITAL SIGNS: Wt 120.203 kg (265 lbs)( < 3 %ile), BP 120/72, Pulse 88, Temperature 36.8 C (98.2 F), RR 20, SpO2 98%. FOCUSED EXAM: General: Awake, alert, oriented, fluent speech Respiratory: Normal respiratory effort Motor/extremities: Right lower extremity: Motor: + ADF/APF/EHL Sensory: Intact to light touch medial/lateral/1st dorsal web space Vascular: Palpable dorsalis pedis pulse Dressing: Clean, dry, and intact, HV holding suction ASSESSMENT & PLAN: Chastity Galdamez is a 50 y.o. female, POD#0, s/p the above procedure, experiencing an appropr iate post operative course. Postoperative Plan: Admit Monitor cxs Maintain abx until cx data back. If + cx then ID consult. WBAT BLE xrays Jillian Farfan MD [facility] [place] Department of Orthopaedics & Rehabilitation [id number] [facility] Mail Code: [id number] [facility] [id number] [email or web address] Pager: [phone] The above was formulated both independently and in conjunction with the team as well as the attending provider of record, is accurate to the best of my knowledge, and is subject to ch tricia based on clinical developments. Electronically signed by Jillian Farfan MD at 011 9:37 PM Julius, David Evangelista MD - 10/16/2010 8:14 AM PST CLINICAL HOSPITALIST SERVICE ([facility])-PROGRESS NOTE HOSPITAL DAY: 4 Author: DAVID KNIGHT MD Subjective: Just back from washout of the hip. No bm's yet. Physical Exam: Vitals (Most recent): BP 152/84 | Pulse 99 | Temp 37.1 C (98.8 F) | RR 16 | Wt 120.203 kg (265 lb) | SpO2 94% General : Sleepy, obese, started snoring, while I was talking to her. Heent: Moist oral mucosa. Neck: Supple, No JVD. Cardiovascular: 1st and 2nd Heart sounds with regular rhythm. Respiratory: Normal vesicular breath sounds b/l. Gastrointestinal: Abdomen is soft, nondistended, nontender, bowel sounds +. Musculoskeletal: No peripheral edema. Tyler Priscilla hose stockings +. Intake/Output Summary (Last 24 hours) at 10/16/10 0815 Last data filed at 10/16/10 0700 Gross per 24 hour Intake 1625 ml Output 3400 ml Net -1775 ml Studies: Chemistries: Last 72 Hours (or 3 results): Recent Labs Basename 10/16/10 0700 10/15/10 2105 10/15/10 1447 10/14/10 1615 NA 136 -- -- 132* K 3.8 -- -- 4.1 CL 99 -- -- 98 BICARB 31* -- -- 29 BUN 4* -- -- 7 CR 0.68 -- -- 0.59* GLU 101* 129* 107* -- CA 8.9 -- -- 9.0 CBC with diff last 72 hours (or 3 results) Recent Labs Basename 10/14/10 0532 10/13/10 1542 WBC 18.5* 19.1* HB 12.1 12.3 HCT 36.2 36.7 PLT 297 296 NEUTROPERC 88* 83* LYMPHPERC 5* 8* MONOPERC 5 9* BASOPERC 1 0 EOSPERC 0* 0* Lab Results Component Value Date GLU 101* 10/16/2010 GLU 129* 10/15/2010 GLU 107* 10/15/2010 Microbiology: CULTURE RESULT (no units) Date Value 10/14/2010 Blood Culture Source..................: Hand Blood Left Result ................... Preliminary: No growth at 1 day. Imaging Studies: CHEST, 1 VIEW (no units) Date Value Low High Status 09/26/2003 Final Value: Radiologist 1: HUSSEIN NAVARRETE V. PORTABLE CHEST: 09/26/2003 Dictated 09/27/2003 COMPARISON: No comparison film. INDICATION: PICC line placement. FINDINGS: A left-sided PICC catheter has its tip involving the cavo-atrial junction. Cardiac silhouette is normal, and there is no pulmonary edema, pneumothorax, or pleural effusion. Osseous structures demonstrate bilateral rudimentary cervical ribs. IMPRESSION: 1. Low lung volumes with bibasilar atelectasis. 2. Left-sided PICC catheter in good position. END OF IMPRESSION: CHEST, 2 VIEWS OR STEREO (no units) Date Value Low High Status 10/13/2010 Final Value: STUDY: CHEST 2 VIEWS 10/13/10 20:28:00 COMPARISON: 09/26/03. FINDINGS: The cardiac silhouette is mildly enlarged, as before. The mediastinal contour is within normal limits. There is mild vascular engorgement. Vascular pedicle width is increased compatible with increased intravascular volume. Mild airway thickening may also be present. No consolidation or edema. No pneumothorax or pleural effusion. Regional osseous structures are intact. IMPRESSION: 1. Stable mild cardiomegaly. 2. Increased intravascular volume without edema. 3. Possible mild airway thickening which could reflect bronchitis, asthma or reactive airway disease. I have personally viewed this procedure/exam and reviewed this report. Author: JAVIER MONTIEL MD Reviewer: PATO MINA MD STATUS FINAL / Dr. PATO MINA Current Meds: acetaminophen (aka TYLENOL) tablet 325-650 mg, 325-650 mg, Oral, Q4H PRN albuterol (aka PROVENTIL, VENTOLIN) 90 mcg/Actuation inhaler 2 Puff, 2 Puff, Inhalation, Q4 H PRN bisacodyl (aka DULCOLAX) suppository 10 mg, 10 mg, Rectal, BID PRN cyclobenzaprine (aka FLEXERIL) tablet 5 mg, 5 mg, Oral, TID PRN dextrose 5%-NaCl 0.9%-KCl 20 mEq/L IV, , Intravenous, CONTINUOUS dextrose injection 25 mL, 25 mL, Intravenous, PRN docusate sodium (aka COLACE) capsule 100 mg, 100 mg, Oral, BID glucagon (aka GLUCAGEN) injection 1 mg, 1 mg, Intramuscular, PRN glucose chewable tablet 16 g, 16 g, Oral, Q15MIN PRN hydrocodone-acetaminophen (aka VICODIN) 5-500 mg 1-2 Tab, 1-2 Tab, Oral, Q4H PRN morphine injection 2-4 mg, 2-4 mg, Intravenous, Q2H PRN multivitamin 1 Cap, 1 Cap, Oral, DAILY nicotine (aka NICOTROL) 14 mg/24 hr 1 Patch, 1 Patch, Transdermal, DAILY nystatin (aka MYCOSTATIN) powder, , Topical, BID omeprazole (aka PRILOSEC) capsule 40 mg, 40 mg, Oral, DAILY ondansetron (aka ZOFRAN) injection 4 mg, 4 mg, Intravenous, Q12H PRN polyethylene glycol (aka MIRALAX) powder 17 g, 17 g, Oral, DAILY PRN promethazine (aka PHENERGAN) injection 12.5 mg, 12.5 mg, Intravenous, Q6H PRN REMOVE nicotine patch, , Transdermal, DAILY simethicone chew (aka MYLICON) tablet 80 mg, 80 mg, Oral, TID PRN zolpidem (aka AMBIEN) tablet 5 mg, 5 mg, Oral, HS PRN Assessment/Plan:50 year old obese woman with a Right hip prosthesis with hip pain and leuko cytosis. # HIP PAIN (11/15/2005) She is currently afebrile, but has leukocytosis and severe pain over the right hip. There i s no other clinically obvious source of infection. Pt denies using IV drugs. Does smoke trudi joon. She has no clinical symptoms or signs of pneumonia, diverticulitis, nephrolithiasis, etc. CT abdomen and Pelvis, reported as worrisome for infection. She had a washout this morn ing. Would recommend discussing a white cell tagged scan( with radiology/nuclear medicine) to de termine if there is infection in the right hip joint, though aspiration from the hip does no t reveal any e/o infection. Fluoroscopic-guided right hip aspiration, yielded less than 1 c c of serosanguineous fluid. # Leukocytosis (10/14/2010) She has leukocytosis with elevated ESR and CRP (signs of infection/inflammation) and is con stipated. The hip seems the most likely source, though the work up so far has been negative. Blood cultures have been ordered. CT of abd/pelvis shows fluid around the hip joint favorin g Infection. No e/o diverticulitis or other occult infectious process in the abdomen. Have o rdered stool for C diff for Community Acquired C Diff. # Sleep Apnea (08/16/2008) Has a h/o of MAMADOU and falls asleep very quickly. Normally uses CPAP but left it at home. She was unable to tolerate CPAP two nights ago. # Hyperglycemia: She has no hx of DM. Most likely stress/possible infection. CBG's much improved. Check CBGs qac and hs and cover with SS insulin. Check A1C. # Hyponatremia Improved, 136 today. Follow BMP closely. # Marked hoarseness of voice TSH 3.15 and free T4 0.7. # Intertriginous rash: Likely fungal. Pt is quite obese and has large skin folds. Continue routine hygiene and top ical nystatin powder. # DVT Prophylaxis: Recommend Prophylactic Enoxaparin as she is quite immobile. Wearing Priscilla Hose. DAVID KNIGHT MD [facility] 6A [employer] Dismantlerdesigner architect Clinical Hospitalist Service [facility] & [facility] DEPARTMENT: Hosp ([facility])- [phone] Place of Service: IP - [phone] [facility] [phone] Modifiers:GC Resident Involved: No Service: Ortho Suggested CPT: 47785 Subsequent Visit Exp Prob Foc/Mod Complexity 25 min I spent more than 30 minutes [id number] with the patient of which greater than 50% was sp ent co-ordinating care acob, David Evangelista MD - 10/15/2010 7:57 AM PST CLINICAL HOSPITALIST SERVICE ([facility])-PROGRESS NOTE HOSPITAL DAY: 3 Author: DAVID KNIGHT MD Subjective: Reports pain in her right lateral thigh going down to her knee. Has not had the CT done so far. No bm's so far. Reporting a temporal headache. She had not been able to use the CPAP last night. Reports a cough x 3 weeks. Physical Exam: Vitals (Most recent): BP 114/50 | Pulse 97 | Temp 36.8 C (98.2 F) | RR 18 | Wt 120.203 kg (265 lb) | SpO2 97% General : Obese woman, irritable, alert and oriented x 3, hoarse voice. Heent: Moist oral mucosa. Neck: Supple, No JVD. Cardiovascular: 1st and 2nd Heart sounds with regular rhythm. Respiratory: Normal vesicular breath sounds b/l, decreased air entry. Gastrointestinal: Abdomen is soft, obese, nontender, bowel sounds +. Musculoskeletal: No peripheral edema. Intake/Output Summary (Last 24 hours) at 10/15/10 0757 Last data filed at 10/15/10 0600 Gross per 24 hour Intake 1920 ml Output 1050 ml Net 870 ml Studies: Chemistries: Last 72 Hours (or 3 results): Recent Labs Basename 10/15/10 0849 10/14/10 2302 10/14/10 1615 NA -- -- 132* K -- -- 4.1 CL -- -- 98 BICARB -- -- 29 BUN -- -- 7 CR -- -- 0.59* GLU 147* 142* 150* CA -- -- 9.0 MG -- -- -- PO4 -- -- -- CBC with diff last 72 hours (or 3 results) Recent Labs Basename 10/14/10 0532 10/13/10 1542 WBC 18.5* 19.1* HB 12.1 12.3 HCT 36.2 36.7 PLT 297 296 NEUTROPERC 88* 83* BANDPCT -- -- LYMPHPERC 5* 8* MONOPERC 5 9* BASOPERC 1 0 EOSPERC 0* 0* Lab Results Component Value Date GLU 142* 10/14/2010 GLU 150* 10/14/2010 GLU 89 09/09/2008 Microbiology: CULTURE RESULT (no units) Date Value 10/13/2010 Joint Fluid Culture Source...............: Synovial fluid Right Hip RLB Gram Stain...........: No Squamous epithelial cells No P MN's No organisms seen. Culture: Preliminary Report: No growth to date. Culture examined daily. Report will be updated if growth occ urs. Further report to follow. Lab Results Component Value Date ESR 58* 10/13/2010 Lab Results Component Value Date CRP 28.8* 10/13/2010 Imaging Studies: CHEST, 1 VIEW (no units) Date Value Low High Status 09/26/2003 Final Value: Radiologist 1: HUSSEIN NAVARRETE V. PORTABLE CHEST: 09/26/2003 Dictated 09/27/2003 COMPARISON: No comparison film. INDICATION: PICC line placement. FINDINGS: A left-sided PICC catheter has its tip involving the cavo-atrial junction. Cardiac silhouette is normal, and there is no pulmonary edema, pneumothorax, or pleural effusion. Osseous structures demonstrate bilateral rudimentary cervical ribs. IMPRESSION: 1. Low lung volumes with bibasilar atelectasis. 2. Left-sided PICC catheter in good position. END OF IMPRESSION: CHEST, 2 VIEWS OR STEREO (no units) Date Value Low High Status 10/13/2010 Final Value: STUDY: CHEST 2 VIEWS 10/13/10 20:28:00 COMPARISON: 09/26/03. FINDINGS: The cardiac silhouette is mildly enlarged, as before. The mediastinal contour is within normal limits. There is mild vascular engorgement. Vascular pedicle width is increased compatible with increased intravascular volume. Mild airway thickening may also be present. No consolidation or edema. No pneumothorax or pleural effusion. Regional osseous structures are intact. IMPRESSION: 1. Stable mild cardiomegaly. 2. Increased intravascular volume without edema. 3. Possible mild airway thickening which could reflect bronchitis, asthma or reactive airway disease. I have personally viewed this procedure/exam and reviewed this report. Author: JAVIER MONTIEL MD Reviewer: PATO MINA MD STATUS FINAL / Dr. PATO MINA CT Abdomen and Pelvis: 10/14/2010 IMPRESSION: 1. No evidence of diverticulitis. 2. New fluid collection surrounding the right hip with irregularity of the femoral cortex is worrisome for infection. Correlate with aspiration. I have personally viewed this procedure/exam and reviewed this report. Author: EDY CAPELLAN M.D. Current Meds: acetaminophen (aka TYLENOL) tablet 325-650 mg, 325-650 mg, Oral, Q4H PRN albuterol (aka PROVENTIL, VENTOLIN) 90 mcg/Actuation inhaler 2 Puff, 2 Puff, Inhalation, Q4 H PRN bisacodyl (aka DULCOLAX) suppository 10 mg, 10 mg, Rectal, BID PRN cyclobenzaprine (aka FLEXERIL) tablet 5 mg, 5 mg, Oral, TID PRN dextrose 5%-NaCl 0.9%-KCl 20 mEq/L IV, , Intravenous, CONTINUOUS dextrose injection 25 mL, 25 mL, Intravenous, PRN docusate sodium (aka COLACE) capsule 100 mg, 100 mg, Oral, BID enoxaparin (aka LOVENOX) injection 30 mg, 30 mg, Subcutaneous, Q12H glucagon (aka GLUCAGEN) injection 1 mg, 1 mg, Intramuscular, PRN glucose chewable tablet 16 g, 16 g, Oral, Q15MIN PRN morphine injection 2-4 mg, 2-4 mg, Intravenous, Q2H PRN multivitamin 1 Cap, 1 Cap, Oral, DAILY nicotine (aka NICOTROL) 14 mg/24 hr 1 Patch, 1 Patch, Transdermal, DAILY nystatin (aka MYCOSTATIN) powder, , Topical, BID omeprazole (aka PRILOSEC) capsule 40 mg, 40 mg, Oral, DAILY ondansetron (aka ZOFRAN) injection 4 mg, 4 mg, Intravenous, Q12H PRN oxyCODONE immediate release (aka ROXICODONE) tablet 5-10 mg, 5-10 mg, Oral, Q4H PRN polyethylene glycol (aka MIRALAX) powder 17 g, 17 g, Oral, DAILY PRN promethazine (aka PHENERGAN) injection 12.5 mg, 12.5 mg, Intravenous, Q6H PRN REMOVE nicotine patch, , Transdermal, DAILY simethicone chew (aka MYLICON) tablet 80 mg, 80 mg, Oral, TID PRN zolpidem (aka AMBIEN) tablet 5 mg, 5 mg, Oral, HS PRN Assessment/Plan: 50 year old obese woman with a Right hip prosthesis with hip pain and leuk ocytosis. # HIP PAIN (11/15/2005) She is currently afebrile, but has leukocytosis and severe pain over the right hip. There i s no other clinically obvious source of infection. Pt denies using IV drugs. Does smoke trudi joon. She has no clinical symptoms or signs of pneumonia, diverticulitis, nephrolithiasis, etc. CT abdomen and Pelvis, reported as worrisome for infection. Would discuss a white cell tagged scan( with radiology/nuclear medicine ) to determine if t here is infection in the right hip joint, though aspiration from the hip does not reveal any e/o infection. If there are other ways to image the right hip to determine if pt may have a n infected prosthetic joint, I'd recommend doing it, but will defer this to the primary team (ortho)Fluoroscopic-guided right hip aspiration, yielding less than 1 cc of serosanguineous fluid. # Leukocytosis (10/14/2010) She has leukocytosis with elevated ESR and CRP (signs of infection/inflammation) and is con stipated. The hip seems the most likely source, though the work up so far has been negative. Blood cultures have been ordered. CT of abd/pelvis shows fluid around the hip joint favorin g Infection. No e/o diverticulitis or other occult infectious process in the abdomen. Have ordered stool for C diff for CACD # Sleep Apnea (08/16/2008) Has a h/o of MAMADOU and falls asleep very quickly. Normally uses CPAP but left it at home. She was unable to tolerate CPAP last night and reports a headache which can be from CO2 ret ention. # Hyperglycemia: She has no hx of DM. It's possible that this may be related to physiologic stress from poss ible infection Check CBGs qac and hs and cover with SS insulin. Check A1C. # Hyponatremia Mild, She may be hypothyroid. Would check TSH and follow BMP closely. # Marked hoarseness of voice Recommend checking TSH and free T4. Have ordered. # Intertriginous rash: Likely lynn. Pt is quite obese and has large skin folds Routine hygiene and topical nystatin powder. # DVT Prophylaxis: Recommend Prophylactic Enoxaparin as she is quite immobile. DAVID KNIGHT MD [address] [employer] Dismantlerdesigner architect Clinical Hospitalist Service [facility] DEPARTMENT: Hosp ([facility])- [phone] Place of Service: - [facility] [phone] Modifiers:GC Resident Involved: No Service: Primary Suggested CPT: 13961 Subsequent Visit Detailed/High complexity 35 min I spent more than 35 minutes [id number] with the patient of which greater than 50% was sp ent co-ordinating care Carolyn Zimmerman Md - 10/15/2010 7:13 AM PST Ortho Progress Note 10/15/2010 Hospital Day #3 S: No events, pt continues to complain of right hip pain O: Last Vitals: BP 114/50 | Pulse 97 | Temp 36.8 C (98.2 F) | RR 18 | Wt 120.203 kg (2 65 lb) | SpO2 97% 24 hour Vitals min/max : Temp Av.9 C (98.4 F) Min: 36.6 C (97.9 F) Max: 37.6 C (99.7 F) Systolic (24hrs), Min:99 mmHg, Max:133 mmHgDiastolic (24hrs), Min:50 mmHg, Max:73 mmHgPulse Av.5 Min: 77 Max: 97 SpO2 Av.8 % Min: 93 % Max: 97 % Drains: none Exam: RLE wwp, 2+ DP and PT Sensation intact med/1st web/lat Motor intact ankle and gr toe DF/PF Incision right hip c/d/i Pt tender to log roll of hip, but able to actively flex hip and roll to side. HEMATOCRIT Date Value Range Status 10/14/2010 36.2 36.0-46.0 (%) Final 10/13/2010 36.7 36.0-46.0 (%) Final Cultures of synovial fluid obtained from right hip: no growth to date A/P: 50 y/o F with right hip pain s/p 2007 JUAN DAVID - PT/OT: Weight bearing: WBAT ROM: as tolerated - DVT ppx: SCDs; will start Lovenox, given low suspicion for septic arthritis - Abx: none; workup ongoing for fever and leukocytosis - Dressings: none - Radiology: reviewed - Dispo: pending workup Raymond Lancaster - 10/14/2010 12:05 PM PSTTransthoracic echocardiogram completed. Final report to follow. documented in this encou nter Plan of Treatment + +------+--------+ + + | Name | Type | Priori | Associated Diagnoses | Order Schedule | | | | ty | | | + +------+--------+ + + | C. DIFFICILE TOXIN | Lab | Routin | | Collect Now for 1 | | | | e | | Occurrences starting | | | | | | 10/15/2010 until | | | | | | 10/15/2010 | + +------+--------+ + + documented as of this encounter Procedures + +--------+ + + + | Procedure Name | Priori | Date/Time | Associated Diagnosis | Comments | | | ty | | | | + +--------+ + + + | PROCEDURE NOTE | Routin | 11/04/2015 | | Results for this | | | e | 7:41 AM | | procedure are in the | | | | PST | | results section. | + +--------+ + + + | PROCEDURE NOTE | Routin | 11/04/2015 | | Results for this | | | e | 7:41 AM | | procedure are in the | | | | PST | | results section. | + +--------+ + + + | LAB REPORTS | | 10/23/2010 | | Results for this | | | | 10:03 AM | | procedure are in the | | | | PST | | results section. | + +--------+ + + + | RESP CARE THERAPY | Routin | 10/23/2010 | | Results for this | | | e | 4:57 AM | | procedure are in the | | | | PST | | results section. | + +--------+ + + + | DIFFERENTIAL | Routin | 10/23/2010 | | Results for this | | | e | 3:51 AM | | procedure are in the | | | | PST | | results section. | + +--------+ + + + | CBC, WITH | Routin | 10/23/2010 | | Results for this | | DIFFERENTIAL | e | 3:51 AM | | procedure are in the | | | | PST | | results section. | + +--------+ + + + | BASIC METABOLIC SET | Routin | 10/23/2010 | | Results for this | | (NA, K, CL, TCO2, | e | 3:51 AM | | procedure are in the | | BUN, CR, GLU, CA) | | PST | | results section. | + +--------+ + + + | RESP CARE THERAPY | Routin | 10/22/2010 | | Results for this | | | e | 10:00 PM | | procedure are in the | | | | PST | | results section. | + +--------+ + + + | CAPILLARY BLOOD | Routin | 10/22/2010 | | Results for this | | GLUCOSE (NO CHG), | e | 5:36 PM | | procedure are in the | | POC | | PST | | results section. | + +--------+ + + + | DIFFERENTIAL | Routin | 10/22/2010 | | Results for this | | | e | 4:08 AM | | procedure are in the | | | | PST | | results section. | + +--------+ + + + | CBC, WITH | Routin | 10/22/2010 | | Results for this | | DIFFERENTIAL | e | 4:08 AM | | procedure are in the | | | | PST | | results section. | + +--------+ + + + | BASIC METABOLIC SET | Routin | 10/22/2010 | | Results for this | | (NA, K, CL, TCO2, | e | 4:08 AM | | procedure are in the | | BUN, CR, GLU, CA) | | PST | | results section. | + +--------+ + + + | RESP CARE THERAPY | Routin | 10/21/2010 | | Results for this | | | e | 9:00 PM | | procedure are in the | | | | PST | | results section. | + +--------+ + + + | DIFFERENTIAL | Routin | 10/21/2010 | | Results for this | | | e | 3:44 AM | | procedure are in the | | | | PST | | results section. | + +--------+ + + + | CBC, WITH | Routin | 10/21/2010 | | Results for this | | DIFFERENTIAL | e | 3:44 AM | | procedure are in the | | | | PST | | results section. | + +--------+ + + + | BASIC METABOLIC SET | Routin | 10/21/2010 | | Results for this | | (NA, K, CL, TCO2, | e | 3:44 AM | | procedure are in the | | BUN, CR, GLU, CA) | | PST | | results section. | + +--------+ + + + | RESP CARE THERAPY | Routin | 10/21/2010 | | Results for this | | | e | 3:38 AM | | procedure are in the | | | | PST | | results section. | + +--------+ + + + | RESP CARE THERAPY | Routin | 10/21/2010 | | Results for this | | | e | 3:21 AM | | procedure are in the | | | | PST | | results section. | + +--------+ + + + | RESP CARE THERAPY | Routin | 10/20/2010 | | Results for this | | | e | 10:07 PM | | procedure are in the | | | | PST | | results section. | + +--------+ + + + | C-REACTIVE PROTEIN | Routin | 10/20/2010 | | Results for this | | | e | 7:02 AM | | procedure are in the | | | | PST | | results section. | + +--------+ + + + | DIFFERENTIAL | Routin | 10/20/2010 | | Results for this | | | e | 6:44 AM | | procedure are in the | | | | PST | | results section. | + +--------+ + + + | CBC, WITH | Routin | 10/20/2010 | | Results for this | | DIFFERENTIAL | e | 6:44 AM | | procedure are in the | | | | PST | | results section. | + +--------+ + + + | COMPLETE METABOLIC | Routin | 10/20/2010 | | Results for this | | SET | e | 6:44 AM | | procedure are in the | | (NA,K,CL,CO2,BUN,CRE | | PST | | results section. | | AT,GLUC,CA,AST,ALT,B | | | | | | BRISEYDA TOTAL,ALK | | | | | | PHOS,ALB,PROT TOTAL) | | | | | + +--------+ + + + | C-REACTIVE PROTEIN | Routin | 10/20/2010 | | Results for this | | | e | 6:44 AM | | procedure are in the | | | | PST | | results section. | + +--------+ + + + | SEDIMENTATION RATE | Routin | 10/20/2010 | | Results for this | | | e | 6:44 AM | | procedure are in the | | | | PST | | results section. | + +--------+ + + + | RESP CARE THERAPY | Routin | 10/20/2010 | | Results for this | | | e | 4:59 AM | | procedure are in the | | | | PST | | results section. | + +--------+ + + + | DIFFERENTIAL | Routin | 10/20/2010 | | Results for this | | | e | 3:32 AM | | procedure are in the | | | | PST | | results section. | + +--------+ + + + | CBC, WITH | Routin | 10/20/2010 | | Results for this | | DIFFERENTIAL | e | 3:32 AM | | procedure are in the | | | | PST | | results section. | + +--------+ + + + | BASIC METABOLIC SET | Routin | 10/20/2010 | | Results for this | | (NA, K, CL, TCO2, | e | 3:32 AM | | procedure are in the | | BUN, CR, GLU, CA) | | PST | | results section. | + +--------+ + + + | IP CONSULT TO PICC | Routin | 10/19/2010 | | Results for this | | TEAM | e | 10:48 AM | | procedure are in the | | | | PST | | results section. | + +--------+ + + + | X-RAY PORTABLE CHEST | Urgent | 10/19/2010 | | Results for this | | 1 VIEW | | 10:45 AM | | procedure are in the | | | | PST | | results section. | + +--------+ + + + | RESP CARE THERAPY | Routin | 10/19/2010 | | Results for this | | | e | 10:00 AM | | procedure are in the | | | | PST | | results section. | + +--------+ + + + | DIFFERENTIAL | Routin | 10/19/2010 | | Results for this | | | e | 8:37 AM | | procedure are in the | | | | PST | | results section. | + +--------+ + + + | CBC, WITH | Routin | 10/19/2010 | | Results for this | | DIFFERENTIAL | e | 8:37 AM | | procedure are in the | | | | PST | | results section. | + +--------+ + + + | BASIC METABOLIC SET | Routin | 10/19/2010 | | Results for this | | (NA, K, CL, TCO2, | e | 8:37 AM | | procedure are in the | | BUN, CR, GLU, CA) | | PST | | results section. | + +--------+ + + + | RESP CARE THERAPY | Routin | 10/19/2010 | | Results for this | | | e | 4:46 AM | | procedure are in the | | | | PST | | results section. | + +--------+ + + + | CAPILLARY BLOOD | Routin | 10/18/2010 | | Results for this | | GLUCOSE (NO CHG), | e | 6:16 PM | | procedure are in the | | POC | | PST | | results section. | + +--------+ + + + | NOTIFICATION | Routin | 10/18/2010 | | Results for this | | | e | 1:52 PM | | procedure are in the | | | | PST | | results section. | + +--------+ + + + | C. DIFFICILE PCR | Routin | 10/18/2010 | | Results for this | | | e | 1:52 PM | | procedure are in the | | | | PST | | results section. | + +--------+ + + + | C. DIFFICILE TOXIN, | Routin | 10/18/2010 | | Results for this | | W/REFLEX | e | 1:52 PM | | procedure are in the | | CONFIRMATION IF | | PST | | results section. | | INDETERMINATE | | | | | | RESULTS | | | | | + +--------+ + + + | CAPILLARY BLOOD | Routin | 10/18/2010 | | Results for this | | GLUCOSE (NO CHG), | e | 12:53 PM | | procedure are in the | | POC | | PST | | results section. | + +--------+ + + + | CAPILLARY BLOOD | Routin | 10/18/2010 | | Results for this | | GLUCOSE (NO CHG), | e | 7:36 AM | | procedure are in the | | POC | | PST | | results section. | + +--------+ + + + | DIFFERENTIAL | Routin | 10/18/2010 | | Results for this | | | e | 7:26 AM | | procedure are in the | | | | PST | | results section. | + +--------+ + + + | CBC, WITH | Routin | 10/18/2010 | | Results for this | | DIFFERENTIAL | e | 7:26 AM | | procedure are in the | | | | PST | | results section. | + +--------+ + + + | BASIC METABOLIC SET | Routin | 10/18/2010 | | Results for this | | (NA, K, CL, TCO2, | e | 7:26 AM | | procedure are in the | | BUN, CR, GLU, CA) | | PST | | results section. | + +--------+ + + + | RESP CARE THERAPY | Routin | 10/18/2010 | | Results for this | | | e | 3:30 AM | | procedure are in the | | | | PST | | results section. | + +--------+ + + + | RESP CARE THERAPY | Routin | 10/18/2010 | | Results for this | | | e | 3:29 AM | | procedure are in the | | | | PST | | results section. | + +--------+ + + + | RESP CARE THERAPY | Routin | 10/17/2010 | | Results for this | | | e | 6:00 PM | | procedure are in the | | | | PST | | results section. | + +--------+ + + + | X-RAY HIP 2 VIEWS | Urgent | 10/17/2010 | | Results for this | | RIGHT | | 10:29 AM | | procedure are in the | | | | PST | | results section. | + +--------+ + + + | HEMOGLOBIN A1C, | Routin | 10/17/2010 | | Results for this | | BLOOD | e | 6:05 AM | | procedure are in the | | | | PST | | results section. | + +--------+ + + + | RESP CARE THERAPY | Routin | 10/17/2010 | | Results for this | | | e | 1:51 AM | | procedure are in the | | | | PST | | results section. | + +--------+ + + + | RESP CARE THERAPY | Routin | 10/17/2010 | | Results for this | | | e | 1:50 AM | | procedure are in the | | | | PST | | results section. | + +--------+ + + + | CAPILLARY BLOOD | Routin | 10/16/2010 | | Results for this | | GLUCOSE (NO CHG), | e | 9:12 PM | | procedure are in the | | POC | | PST | | results section. | + +--------+ + + + | CAPILLARY BLOOD | Routin | 10/16/2010 | | Results for this | | GLUCOSE (NO CHG), | e | 6:16 PM | | procedure are in the | | POC | | PST | | results section. | + +--------+ + + + | CAPILLARY BLOOD | Routin | 10/16/2010 | | Results for this | | GLUCOSE (NO CHG), | e | 3:31 PM | | procedure are in the | | POC | | PST | | results section. | + +--------+ + + + | RESP CARE THERAPY | Routin | 10/16/2010 | | Results for this | | | e | 10:00 AM | | procedure are in the | | | | PST | | results section. | + +--------+ + + + | NOTIFICATION | Routin | 10/16/2010 | | Results for this | | | e | 9:50 AM | | procedure are in the | | | | PST | | results section. | + +--------+ + + + | NOTIFICATION | Routin | 10/16/2010 | | Results for this | | | e | 9:50 AM | | procedure are in the | | | | PST | | results section. | + +--------+ + + + | NOTIFICATION | Routin | 10/16/2010 | | Results for this | | | e | 9:50 AM | | procedure are in the | | | | PST | | results section. | + +--------+ + + + | NOTIFICATION | Routin | 10/16/2010 | | Results for this | | | e | 9:50 AM | | procedure are in the | | | | PST | | results section. | + +--------+ + + + | NOTIFICATION | Routin | 10/16/2010 | | Results for this | | | e | 9:50 AM | | procedure are in the | | | | PST | | results section. | + +--------+ + + + | FUNGUS PRELIMINARY 1 | Routin | 10/16/2010 | | Results for this | | | e | 9:50 AM | | procedure are in the | | | | PST | | results section. | + +--------+ + + + | FUNGUS PRELIMINARY 1 | Routin | 10/16/2010 | | Results for this | | | e | 9:50 AM | | procedure are in the | | | | PST | | results section. | + +--------+ + + + | FUNGUS PRELIMINARY 1 | Routin | 10/16/2010 | | Results for this | | | e | 9:50 AM | | procedure are in the | | | | PST | | results section. | + +--------+ + + + | FUNGUS PRELIMINARY 1 | Routin | 10/16/2010 | | Results for this | | | e | 9:50 AM | | procedure are in the | | | | PST | | results section. | + +--------+ + + + | FUNGUS PRELIMINARY 1 | Routin | 10/16/2010 | | Results for this | | | e | 9:50 AM | | procedure are in the | | | | PST | | results section. | + +--------+ + + + | AFB PRELIM 1 | Routin | 10/16/2010 | | Results for this | | | e | 9:50 AM | | procedure are in the | | | | PST | | results section. | + +--------+ + + + | AFB PRELIM 1 | Routin | 10/16/2010 | | Results for this | | | e | 9:50 AM | | procedure are in the | | | | PST | | results section. | + +--------+ + + + | AFB PRELIM 1 | Routin | 10/16/2010 | | Results for this | | | e | 9:50 AM | | procedure are in the | | | | PST | | results section. | + +--------+ + + + | AFB PRELIM 1 | Routin | 10/16/2010 | | Results for this | | | e | 9:50 AM | | procedure are in the | | | | PST | | results section. | + +--------+ + + + | AFB PRELIM 1 | Routin | 10/16/2010 | | Results for this | | | e | 9:50 AM | | procedure are in the | | | | PST | | results section. | + +--------+ + + + | CULTURE, TISSUE | Routin | 10/16/2010 | | Results for this | | | e | 9:50 AM | | procedure are in the | | | | PST | | results section. | + +--------+ + + + | CULTURE, TISSUE | Routin | 10/16/2010 | | Results for this | | | e | 9:50 AM | | procedure are in the | | | | PST | | results section. | + +--------+ + + + | CULTURE, TISSUE | Routin | 10/16/2010 | | Results for this | | | e | 9:50 AM | | procedure are in the | | | | PST | | results section. | + +--------+ + + + | CULTURE, TISSUE | Routin | 10/16/2010 | | Results for this | | | e | 9:50 AM | | procedure are in the | | | | PST | | results section. | + +--------+ + + + | CULTURE, TISSUE | Routin | 10/16/2010 | | Results for this | | | e | 9:50 AM | | procedure are in the | | | | PST | | results section. | + +--------+ + + + | FUNGAL SMEAR ONLY | Routin | 10/16/2010 | | Results for this | | | e | 9:50 AM | | procedure are in the | | | | PST | | results section. | + +--------+ + + + | FUNGAL SMEAR ONLY | Routin | 10/16/2010 | | Results for this | | | e | 9:50 AM | | procedure are in the | | | | PST | | results section. | + +--------+ + + + | FUNGAL SMEAR ONLY | Routin | 10/16/2010 | | Results for this | | | e | 9:50 AM | | procedure are in the | | | | PST | | results section. | + +--------+ + + + | FUNGAL SMEAR ONLY | Routin | 10/16/2010 | | Results for this | | | e | 9:50 AM | | procedure are in the | | | | PST | | results section. | + +--------+ + + + | FUNGAL SMEAR ONLY | Routin | 10/16/2010 | | Results for this | | | e | 9:50 AM | | procedure are in the | | | | PST | | results section. | + +--------+ + + + | ACID FAST BACILLI, | Routin | 10/16/2010 | | Results for this | | SMEAR ONLY | e | 9:50 AM | | procedure are in the | | | | PST | | results section. | + +--------+ + + + | ACID FAST BACILLI, | Routin | 10/16/2010 | | Results for this | | SMEAR ONLY | e | 9:50 AM | | procedure are in the | | | | PST | | results section. | + +--------+ + + + | ACID FAST BACILLI, | Routin | 10/16/2010 | | Results for this | | SMEAR ONLY | e | 9:50 AM | | procedure are in the | | | | PST | | results section. | + +--------+ + + + | ACID FAST BACILLI, | Routin | 10/16/2010 | | Results for this | | SMEAR ONLY | e | 9:50 AM | | procedure are in the | | | | PST | | results section. | + +--------+ + + + | ACID FAST BACILLI, | Routin | 10/16/2010 | | Results for this | | SMEAR ONLY | e | 9:50 AM | | procedure are in the | | | | PST | | results section. | + +--------+ + + + | CULTURE, FUNGAL & | Routin | 10/16/2010 | | Results for this | | SMEAR | e | 9:50 AM | | procedure are in the | | | | PST | | results section. | + +--------+ + + + | CULTURE, FUNGAL & | Routin | 10/16/2010 | | Results for this | | SMEAR | e | 9:50 AM | | procedure are in the | | | | PST | | results section. | + +--------+ + + + | CULTURE, FUNGAL & | Routin | 10/16/2010 | | Results for this | | SMEAR | e | 9:50 AM | | procedure are in the | | | | PST | | results section. | + +--------+ + + + | CULTURE, FUNGAL & | Routin | 10/16/2010 | | Results for this | | SMEAR | e | 9:50 AM | | procedure are in the | | | | PST | | results section. | + +--------+ + + + | CULTURE, FUNGAL & | Routin | 10/16/2010 | | Results for this | | SMEAR | e | 9:50 AM | | procedure are in the | | | | PST | | results section. | + +--------+ + + + | CULTURE, AFB (ALL | Routin | 10/16/2010 | | Results for this | | SPEC TYPES EXCEPT | e | 9:50 AM | | procedure are in the | | BLOOD) | | PST | | results section. | + +--------+ + + + | CULTURE, AFB (ALL | Routin | 10/16/2010 | | Results for this | | SPEC TYPES EXCEPT | e | 9:50 AM | | procedure are in the | | BLOOD) | | PST | | results section. | + +--------+ + + + | CULTURE, AFB (ALL | Routin | 10/16/2010 | | Results for this | | SPEC TYPES EXCEPT | e | 9:50 AM | | procedure are in the | | BLOOD) | | PST | | results section. | + +--------+ + + + | CULTURE, AFB (ALL | Routin | 10/16/2010 | | Results for this | | SPEC TYPES EXCEPT | e | 9:50 AM | | procedure are in the | | BLOOD) | | PST | | results section. | + +--------+ + + + | CULTURE, AFB (ALL | Routin | 10/16/2010 | | Results for this | | SPEC TYPES EXCEPT | e | 9:50 AM | | procedure are in the | | BLOOD) | | PST | | results section. | + +--------+ + + + | CULTURE, JOINT FLUID | Routin | 10/16/2010 | | Results for this | | (SYNOVIAL) | e | 8:40 AM | | procedure are in the | | | | PST | | results section. | + +--------+ + + + | BASIC METABOLIC SET | Routin | 10/16/2010 | | Results for this | | (NA, K, CL, TCO2, | e | 7:00 AM | | procedure are in the | | BUN, CR, GLU, CA) | | PST | | results section. | + +--------+ + + + | BASIC METABOLIC SET | Routin | 10/16/2010 | | Results for this | | (NA, K, CL, TCO2, | e | 3:06 AM | | procedure are in the | | BUN, CR, GLU, CA) | | PST | | results section. | + +--------+ + + + | FREE T4 | Routin | 10/16/2010 | | Results for this | | | e | 3:06 AM | | procedure are in the | | | | PST | | results section. | + +--------+ + + + | TSH | Routin | 10/16/2010 | | Results for this | | | e | 3:06 AM | | procedure are in the | | | | PST | | results section. | + +--------+ + + + | RESP CARE THERAPY | Routin | 10/16/2010 | | Results for this | | | e | 12:36 AM | | procedure are in the | | | | PST | | results section. | + +--------+ + + + | ANESTHESIA/SEDATION | | 10/16/2010 | | Results for this | | | | 12:00 AM | | procedure are in the | | | | PST | | results section. | + +--------+ + + + | ANESTHESIA/SEDATION | | 10/16/2010 | | Results for this | | | | 12:00 AM | | procedure are in the | | | | PST | | results section. | + +--------+ + + + | OPERATION RECORD | | 10/16/2010 | | Results for this | | | | 12:00 AM | | procedure are in the | | | | PST | | results section. | + +--------+ + + + | CAPILLARY BLOOD | Routin | 10/15/2010 | | Results for this | | GLUCOSE (NO CHG), | e | 9:05 PM | | procedure are in the | | POC | | PST | | results section. | + +--------+ + + + | TYPE AND SCREEN | Routin | 10/15/2010 | | Results for this | | | e | 6:13 PM | | procedure are in the | | | | PST | | results section. | + +--------+ + + + | PRODUCT - RED CELLS | Routin | 10/15/2010 | | Results for this | | LEUKOREDUCED | e | 5:54 PM | | procedure are in the | | | | PST | | results section. | + +--------+ + + + | PRODUCT - RED CELLS | Routin | 10/15/2010 | | Results for this | | LEUKOREDUCED | e | 5:54 PM | | procedure are in the | | | | PST | | results section. | + +--------+ + + + | CAPILLARY BLOOD | Routin | 10/15/2010 | | Results for this | | GLUCOSE (NO CHG), | e | 2:47 PM | | procedure are in the | | POC | | PST | | results section. | + +--------+ + + + | CAPILLARY BLOOD | Routin | 10/15/2010 | | Results for this | | GLUCOSE (NO CHG), | e | 8:49 AM | | procedure are in the | | POC | | PST | | results section. | + +--------+ + + + | CAPILLARY BLOOD | Routin | 10/14/2010 | | Results for this | | GLUCOSE (NO CHG), | e | 11:02 PM | | procedure are in the | | POC | | PST | | results section. | + +--------+ + + + | CT ABDOMEN AND | Routin | 10/14/2010 | | Results for this | | PELVIS W IV CONTRAST | e | 8:03 PM | | procedure are in the | | | | PST | | results section. | + +--------+ + + + | RESP CARE THERAPY | Routin | 10/14/2010 | | Results for this | | | e | 5:49 PM | | procedure are in the | | | | PST | | results section. | + +--------+ + + + | 12 LEAD ECG | Routin | 10/14/2010 | | Results for this | | | e | 5:31 PM | | procedure are in the | | | | PST | | results section. | + +--------+ + + + | CULTURE, BLOOD BACTI | Routin | 10/14/2010 | | Results for this | | & YEAST | e | 4:51 PM | | procedure are in the | | | | PST | | results section. | + +--------+ + + + | BASIC METABOLIC SET | Urgent | 10/14/2010 | | Results for this | | (NA, K, CL, TCO2, | | 4:15 PM | | procedure are in the | | BUN, CR, GLU, CA) | | PST | | results section. | + +--------+ + + + | DIFFERENTIAL | Urgent | 10/14/2010 | | Results for this | | | | 5:32 AM | | procedure are in the | | | | PST | | results section. | + +--------+ + + + | CBC, WITH | Urgent | 10/14/2010 | | Results for this | | DIFFERENTIAL | | 5:32 AM | | procedure are in the | | | | PST | | results section. | + +--------+ + + + | TRANSTHORACIC | | 10/14/2010 | | Results for this | | ECHOCARDIOGRAM, | | 12:00 AM | | procedure are in the | | ADULT | | PST | | results section. | + +--------+ + + + | UA, DIPSTICK ONLY | Urgent | 10/13/2010 | | Results for this | | | | 10:45 PM | | procedure are in the | | | | PST | | results section. | + +--------+ + + + | URINE, MICROSCOPIC | Urgent | 10/13/2010 | | Results for this | | EXAM | | 10:45 PM | | procedure are in the | | | | PST | | results section. | + +--------+ + + + | URINE SCREEN FOR | Urgent | 10/13/2010 | | Results for this | | CULTURE | | 10:45 PM | | procedure are in the | | | | PST | | results section. | + +--------+ + + + | CULTURE, URINE BACTI | Urgent | 10/13/2010 | | Results for this | | | | 10:45 PM | | procedure are in the | | | | PST | | results section. | + +--------+ + + + | CULTURE, BLOOD BACTI | Urgent | 10/13/2010 | | Results for this | | & YEAST | | 9:56 PM | | procedure are in the | | | | PST | | results section. | + +--------+ + + + | CULTURE, BLOOD BACTI | Urgent | 10/13/2010 | | Results for this | | & YEAST | | 9:56 PM | | procedure are in the | | | | PST | | results section. | + +--------+ + + + | X-RAY CHEST 2 VIEW | Urgent | 10/13/2010 | | Results for this | | | | 8:28 PM | | procedure are in the | | | | PST | | results section. | + +--------+ + + + | X-RAY ASPIRATION OR | Urgent | 10/13/2010 | | Results for this | | INJ | | 7:01 PM | | procedure are in the | | (HIP/KNEE/SHOULDER) | | PST | | results section. | | JOINT COMBO | | | | | + +--------+ + + + | BODY FLUID INFO | Urgent | 10/13/2010 | | Results for this | | PANEL | | 5:03 PM | | procedure are in the | | | | PST | | results section. | + +--------+ + + + | SYNOVIAL FLUID CELL | Urgent | 10/13/2010 | | Results for this | | COUNT / DIFF | | 5:03 PM | | procedure are in the | | | | PST | | results section. | + +--------+ + + + | SYNOVIAL FLUID, | Urgent | 10/13/2010 | | Results for this | | CRYSTALS | | 5:03 PM | | procedure are in the | | | | PST | | results section. | + +--------+ + + + | CULTURE, JOINT FLUID | Urgent | 10/13/2010 | | Results for this | | (SYNOVIAL) | | 5:03 PM | | procedure are in the | | | | PST | | results section. | + +--------+ + + + | CELL COUNT DIFF, | Urgent | 10/13/2010 | | Results for this | | BODY FLUID | | 5:03 PM | | procedure are in the | | | | PST | | results section. | + +--------+ + + + | DIFFERENTIAL | Urgent | 10/13/2010 | | Results for this | | | | 3:42 PM | | procedure are in the | | | | PST | | results section. | + +--------+ + + + | CBC, WITH | Urgent | 10/13/2010 | | Results for this | | DIFFERENTIAL | | 3:42 PM | | procedure are in the | | | | PST | | results section. | + +--------+ + + + | SEDIMENTATION RATE | Urgent | 10/13/2010 | | Results for this | | | | 3:42 PM | | procedure are in the | | | | PST | | results section. | + +--------+ + + + | C-REACTIVE PROTEIN | Urgent | 10/13/2010 | | Results for this | | | | 11:30 AM | | procedure are in the | | | | PST | | results section. | + +--------+ + + + | X-RAY HIP 2 VIEWS | Routin | 10/12/2010 | | Results for this | | RIGHT W/ PELVIS 1 | e | 10:20 PM | | procedure are in the | | VIEW | | PST | | results section. | + +--------+ + + + documented in this encounter Results PROCEDURE NOTE (11/04/2015 7:41 AM PST)PROCEDURE NOTE (11/04/2015 7:41 AM PST)LAB REPORTS (10/23/2010 10:03 AM PST) + + + | Narrative | Performed At | + + + | | | + + + + + | Procedure Note | + + | Other, Faculty - 10/27/2010 8:38 AM PST | | | + + RESP CARE THERAPY (10/23/2010 4:57 AM PST) + + + + +-------- ------+ | Component | Value | Ref Range | Performed | Patholo gist | | | | | At | Signatu re | + + + + +-------- ------+ | RESPIRATORY | Home CPAP/BiLevel check | | [facility] | | | CARE | and patient assesment: | | RESPIRATORY | | | | This is a routine check | | THERAPY | | | | of the home BiLevel | | | | | | device and the patient. | | | | | | Thepatient is asleep but | | | | | | not using their | | | | | | non-invasive device at | | | | | | this time HR =100 RR= 18 | | | | | | SPO2= 95 % | | | | | | Electronically Signed | | | | | | by: Mango Newman, | | | | | | | | | | | |Electronically Signed by: Mango Newman, | | | | + + + + +-------- ------+ + + | Specimen | + + | | + + + + + + + | Performing | Address | City/State/Zipcode | Phone Number | | Organization | | | | + + + + + | [facility] | [address] | [place], [place] | | | THERAPY | [address] | [address] | | + + + + + DIFFERENTIAL (10/23/2010 3:51 AM PST) + + + + + + | Component | Value | Ref Range | Performed | Pathologist | | | | | At | Signature | + + + + + + | NEUTROPHIL | 75 (H) | 50 - 70 % | [facility] | | | % | | | DEPARTMENT | | | | | | OF | | | | | | PATHOLOGY | | + + + + + + | LYMPHOCYTE | 17 (L) | 18 - 42 % | [facility] [...] + + + | BASO % | 2 | <3 % | [facility] | | | | | | DEPARTMENT | | | | | | OF | | | | | | PATHOLOGY | | + + + + + + | NEUTROPHIL | 11.6 (H) | 1.8 - 7.7 K/cu | [facility] | | | # | | mm | DEPARTMENT | | | | | | OF | | | | | | PATHOLOGY | | + + + + + + | LYMPHOCYTE | 2.6 | 1.0 - 4.8 K/cu | [facility] | | | # | | mm | DEPARTMENT | | | | | | OF | | | | | | PATHOLOGY | | + + + + + + | MONOCYTE # | 0.8 | <0.9 K/cu mm | [facility] | | | | | | DEPARTMENT | | | | | | OF | | | | | | PATHOLOGY | | + + + + + + | EOS # | 0.3 | <0.6 K/cu mm | [facility] | | | | | | DEPARTMENT | | | | | | OF | | | | | | PATHOLOGY | | + + + + + + | BASO # | 0.3 (H) | <0.3 | [facility] | | | | | | DEPARTMENT | | | | | | OF | | | | | | PATHOLOGY | | + + + + + + + + | Specimen | + + | | + + + + + | Narrative | Performed At | + + + | * Corrected 10/23/10 06:42: RAHUL COMMENTS, prev report: Slide | [facility] | | review pending. | DEPARTMENT OF | | | PATHOLOGY | + + + + + + + + | Performing | Address | City/State/Zipcode | Phone Number | | Organization | | | | + + + + + | [facility] | [address] | [place] [address] | | | PATHOLOGY | [address] | | | + + + + + BASIC METABOLIC SET (NA, K, CL, TCO2, BUN, CR, GLU, CA) (10/23/2010 3:51 AM PST) + + + + + + | Component | Value | Ref Range | Performed | Pathologist | | | | | At | Signature | + + + + + + | GLUCOSE, | 146 (H) | 60 - 99 mg/dL | [facility] [...] + + + + | CREATININE | 0.65 | 0.60 - 1.10 | [facility] | [...] + + + + | POTASSIUM, | 4.1 | 3.4 - 5.0 | [facility] | | | PLASMA | | mmol/L | DEPARTMENT | | | (LAB) | | | OF | | | | | | PATHOLOGY | | + + + + + + | CHLORIDE, | 102 | 97 - 108 mmol/L | [facility] | | | PLASMA | | | DEPARTMENT | | | (LAB) | | | OF | | | | | | PATHOLOGY | | + + + + + + | TOTAL CO2, | 32 (H)Comment: New | 22 - 29 mmol/L | [facility] | | | PLASMA | Total CO2 reference | | DEPARTMENT | | | (LAB) | range effective | | OF | | | | 08/22/. | | PATHOLOGY | | + + + + + + | CALCIUM, | 8.7 | 8.6 - 10.2 | [facility] | | | PLASMA | | mg/dL | DEPARTMENT | | | (LAB) | | | OF | | | | | | PATHOLOGY | | + + + + + + | ANION GAP | 4 | 4 - 11 mmol/L | [facility] [...] + + | [facility] | [address] | [place] [address] | | | PATHOLOGY | [address] | | | + + + + + CBC, WITH DIFFERENTIAL (10/23/2010 3:51 AM PST) + + + + + + | Component | Value | Ref Range | Performed | Pathologist | | | | | At | Signature | + + + + + + | WHITE CELL | 15.5 (H) | 4.4 - 11.0 K/cu | [facility] | | | COUNT | | mm | DEPARTMENT | | | | | | OF | | | | | | PATHOLOGY | | + + + + + + | RED CELL | 3.74 (L) | 4.00 - 5.20 | [facility] | | | COUNT | | M/cu mm | DEPARTMENT | | | | | | OF | | | | | | PATHOLOGY | | + + + + + + | HEMOGLOBIN | 10.9 (L) | 12.0 - 16.0 | [facility] | | | | | g/dL | DEPARTMENT | | | | | | OF | | | | | | PATHOLOGY | | + + + + + + | HEMATOCRIT | 33.1 (L) | 36.0 - 46.0 % | [facility] | | | | | | DEPARTMENT | | | | | | OF | | | | | | PATHOLOGY | | + + + + + + | MCV | 88.5 | 80.0 - 96.0 fL | [facility] | | | | | | DEPARTMENT | | | | | | OF | | | | | | PATHOLOGY | | + + + + + + | MCHC | 32.9 (L) | 33.4 - 35.5 | [facility] | | | | | g/dL | DEPARTMENT | | | | | | OF | | | | | | PATHOLOGY | | + + + + + + | RDW | 14.7 | 11.5 - 15.0 % | [facility] | | | | | | DEPARTMENT | | | | | | OF | | | | | | PATHOLOGY | | + + + + + + | PLATELET | 684 (H) | 150 - 400 K/cu | [...] + + + + + + | DIFF | <or= 10% bands seen on | | [facility] | | | COMMENTS | scan. | | DEPARTMENT | | | | | | OF | | | | | | PATHOLOGY | | + + + + + + + + | Specimen | + + | Blood - Blood | + + + + + | Narrative | Performed At | + + + | * Corrected 10/23/10 06:42: RAUHL COMMENTS, prev report: Slide | [facility] | | review pending. | DEPARTMENT OF | | | PATHOLOGY | + + + + + + + + | Performing | Address | City/State/Zipcode | Phone Number | | Organization | | | | + + + + + | [facility] | [address] | [place] [address] | | | PATHOLOGY | [address] | | | + + + + + RESP CARE THERAPY (10/22/2010 10:00 PM PST) + + + + +-------- ------+ | Component | Value | Ref Range | Performed | Patholo gist | | | | | At | Signatu re | + + + + +-------- ------+ | RESPIRATORY | Home CPAP/BiLevel check | | [facility] | | | CARE | and patient assesment: | | RESPIRATORY | | | | This is a routine check | | THERAPY | | | | of the home CPAP device | | | | | | and the patient. The | | | | | | deviceis not in use at | | | | | | this time, The patient | | | | | | is not yet ready to go | | | | | | to sleep. | | | | | | Electronically Signed | | | | | | by: Mango Newman, | | | | | | | | | | | |Electronically Signed by: Mango Newman, | | | | + + + + +-------- ------+ + + | Specimen | + + | | + + + + + + + | Performing | Address | City/State/Zipcode | Phone Number | | Organization | | | | + + + + + | [facility] | [address] | [place], [place] | | | THERAPY | [address] | [address] | | + + + + + CAPILLARY BLOOD GLUCOSE, POC (10/22/2010 5:36 PM PST) + +---------+ + + + | Component | Value | Ref Range | Performed | Pathologist | | | | | At | Signature | + +---------+ + + + | BLOOD | 136 (H) | 60 - 99 mg/dL | [facility] - | | | GLUCOSE, | | | [facility] | | | POC | | | [facility] | | | | | | OF CARE | | | | | | TESTS | | + +---------+ + + + + + | Specimen | + + | | + + + + + + + | Performing | Address | City/State/Zipcode | Phone Number | | Organization | | | | + + + + + | [facility] | [address] | [place], [place] | | | [facility] | [address] | [address] | | | TESTS | | | | + + + + + DIFFERENTIAL (10/22/2010 4:08 AM PST) + + + + + + | Component | Value | Ref Range | Performed | Pathologist | | | | | At | Signature | + + + + + + | NEUTROPHIL | 74 (H) | 50 - 70 % | [facility] | | | % | | | DEPARTMENT | | | | | | OF | | | | | | PATHOLOGY | | + + + + + + | LYMPHOCYTE | 16 (L) | 18 - 42 % | [facility] [...] + + + + | NEUTROPHIL | 11.2 (H) | 1.8 - 7.7 K/cu | [facility] | | | # | | mm | DEPARTMENT | | | | | | OF | | | | | | PATHOLOGY | | + + + + + + | LYMPHOCYTE | 2.4 | 1.0 - 4.8 K/cu | [facility] | | | # | | mm | DEPARTMENT | | | | | | OF | | | | | | PATHOLOGY | | + + + + + + | MONOCYTE # | 0.9 (H) | <0.9 K/cu mm | [facility] | | | | | | DEPARTMENT | | | | | | OF | | | | | | PATHOLOGY | | + + + + + + | EOS # | 0.5 | <0.6 K/cu mm | [facility] | [...] | + + + | * Corrected 10/22/10 05:06: RAHUL COMMENTS, prev report: Slide | [facility] | | review pending. | DEPARTMENT OF | | | PATHOLOGY | + + + + + + + + | Performing | Address | City/State/Zipcode | Phone Number | | Organization | | | | + + + + + | [facility] | [address] | [place] [address] | | | PATHOLOGY | [address] | | | + + + + + BASIC METABOLIC SET (NA, K, CL, TCO2, BUN, CR, GLU, CA) (10/22/2010 4:08 AM PST) + + + + + + | Component | Value | Ref Range | Performed | Pathologist | | | | | At | Signature | + + + + + + | GLUCOSE, | 190 (H) | 60 - 99 mg/dL | [facility] [...] + + + + | CREATININE | 0.62 | 0.60 - 1.10 | [facility] | | | PLASMA | | mg/dL | DEPARTMENT | | | (LAB) | | | OF | | | | | | PATHOLOGY | | + + + + + + | SODIUM, | 139 | 134 - 143 | [facility] | | | PLASMA | | mmol/L | DEPARTMENT | | | (LAB) | | | OF | | | | | | PATHOLOGY | | + + + + + + | POTASSIUM, | 3.8 | 3.4 - 5.0 | [facility] | | | PLASMA | | mmol/L | DEPARTMENT | | | (LAB) | | | OF | | | | | | PATHOLOGY | | + + + + + + | CHLORIDE, | 103 | 97 - 108 mmol/L | [facility] | | | PLASMA | | | DEPARTMENT | | | (LAB) | | | OF | | | | | | PATHOLOGY | | + + + + + + | TOTAL CO2, | 32 (H)Comment: New | 22 - 29 mmol/L | [facility] | | | PLASMA | Total CO2 reference | | DEPARTMENT | | | (LAB) | range effective | | OF | | | | 08/22/10. | | PATHOLOGY | | + + + + + + | CALCIUM, | 8.6 | 8.6 - 10.2 | [facility] | | | PLASMA | | mg/dL | DEPARTMENT | | | (LAB) | | | OF | | | | | | PATHOLOGY | | + + + + + + | ANION GAP | 4 | 4 - 11 mmol/L | [facility] [...] DEPARTMENT OF | [address] | [place] [address] | | | PATHOLOGY | [address] | | | + + + + + CBC, WITH DIFFERENTIAL (10/22/2010 4:08 AM PST) + + + + + + | Component | Value | Ref Range | Performed | Pathologist | | | | | At | Signature | + + + + + + | WHITE CELL | 15.1 (H) | 4.4 - 11.0 K/cu | [facility] | | | COUNT | | mm | DEPARTMENT | | | | | | OF | | | | | | PATHOLOGY | | + + + + + + | RED CELL | 3.65 (L) | 4.00 - 5.20 | [facility] | | | COUNT | | M/cu mm | DEPARTMENT | | | | | | OF | | | | | | PATHOLOGY | | + + + + + + | HEMOGLOBIN | 10.7 (L) | 12.0 - 16.0 | [facility] | | | | | g/dL | DEPARTMENT | | | | | | OF | | | | | | PATHOLOGY | | + + + + + + | HEMATOCRIT | 32.2 (L) | 36.0 - 46.0 % | [facility] | | | | | | DEPARTMENT | | | | | | OF | | | | | | PATHOLOGY | | + + + + + + | MCV | 88.1 | 80.0 - 96.0 fL | [facility] | | | | | | DEPARTMENT | | | | | | OF | | | | | | PATHOLOGY | | + + + + + + | MCHC | 33.1 (L) | 33.4 - 35.5 | [facility] | | | | | g/dL | DEPARTMENT | | | | | | OF | | | | | | PATHOLOGY | | + + + + + + | RDW | 14.6 | 11.5 - 15.0 % | [facility] | | | | | | DEPARTMENT | | | | | | OF | | | | | | PATHOLOGY | | + + + + + + | PLATELET | 606 (H) | 150 - 400 K/cu | [...] + + + + + + | DIFF | <or= 10% bands seen on | | [facility] | | | COMMENTS | scan. | | DEPARTMENT | | | | | | OF | | | | | | PATHOLOGY | | + + + + + + + + | Specimen | + + | Blood - Blood | + + + + + | Narrative | Performed At | + + + | * Corrected 10/22/10 05:06: RAHUL COMMENTS, prev report: Slide | [facility] | | review pending. | DEPARTMENT OF | | | PATHOLOGY | + + + + + + + + | Performing | Address | City/State/Zipcode | Phone Number | | Organization | | | | + + + + + | [facility] | [address] | [place] [address] | | | PATHOLOGY | [address] | | | + + + + + RESP CARE THERAPY (10/21/2010 9:00 PM PST) + + + + +-------- ------+ | Component | Value | Ref Range | Performed | Patholo gist | | | | | At | Signatu re | + + + + +-------- ------+ | RESPIRATORY | Home CPAP/BiLevel check | | [facility] | | | CARE | and patient assesment: | | RESPIRATORY | | | | This is a routine check | | THERAPY | | | | of the home CPAP device | | | | | | and the patient. The | | | | | | deviceis not in use at | | | | | | this time, The patient | | | | | | is not yet ready to go | | | | | | to sleep. | | | | | | Electronically Signed | | | | | | by: Radha Groves, | | | | | | | | | | | |Electronically Signed by: Radha Groves, | | | | + + + + +-------- ------+ + + | Specimen | + + | | + + + + + + + | Performing | Address | City/State/Zipcode | Phone Number | | Organization | | | | + + + + + | [facility] | [address] | [place], [place] | | | THERAPY | [address] | [address] | | + + + + + DIFFERENTIAL (10/21/2010 3:44 AM PST) + + + + + + | Component | Value | Ref Range | Performed | Pathologist | | | | | At | Signature | + + + + + + | NEUTROPHIL | 79 (H) | 50 - 70 % | [facility] | | | % | | | DEPARTMENT | | | | | | OF | | | | | | PATHOLOGY | | + + + + + + | LYMPHOCYTE | 13 (L) | 18 - 42 % | [facility] [...] + + + | BASO % | 0 | <3 % | [facility] | | | | | | DEPARTMENT | | | | | | OF | | | | | | PATHOLOGY | | + + + + + + | NEUTROPHIL | 11.9 (H) | 1.8 - 7.7 K/cu | [facility] | | | # | | mm | DEPARTMENT | | | | | | OF | | | | | | PATHOLOGY | | + + + + + + | LYMPHOCYTE | 2.0 | 1.0 - 4.8 K/cu | [facility] | | | # | | mm | DEPARTMENT | | | | | | OF | | | | | | PATHOLOGY | | + + + + + + | MONOCYTE # | 0.8 | <0.9 K/cu mm | [facility] | | | | | | DEPARTMENT | | | | | | OF | | | | | | PATHOLOGY | | + + + + + + | EOS # | 0.5 | <0.6 K/cu mm | [facility] | | | | | | DEPARTMENT | | | | | | OF | | | | | | PATHOLOGY | | + + + + + + | BASO # | 0.0 | <0.3 | [facility] | | | | | | DEPARTMENT | | | | | | OF | | | | | | PATHOLOGY | | + + + + + + + + | Specimen | + + | | + + + + + | Narrative | Performed At | + + + | * Corrected 10/21/10 05:44: RAHUL COMMENTS, prev report: Slide | [facility] | | review pending. | DEPARTMENT OF | | | PATHOLOGY | + + + + + + + + | Performing | Address | City/State/Zipcode | Phone Number | | Organization | | | | + + + + + | [facility] | [address] | [place] [address] | | | PATHOLOGY | [address] | | | + + + + + BASIC METABOLIC SET (NA, K, CL, TCO2, BUN, CR, GLU, CA) (10/21/2010 3:44 AM PST) + + + + + + | Component | Value | Ref Range | Performed | Pathologist | | | | | At | Signature | + + + + + + | GLUCOSE, | 206 (H) | 60 - 99 mg/dL | [facility] [...] + + + + | CREATININE | 0.57 (L) | 0.60 - 1.10 | [facility] | | | PLASMA | | mg/dL | DEPARTMENT | | | (LAB) | | | OF | | | | | | PATHOLOGY | | + + + + + + | SODIUM, | 134 | 134 - 143 | [facility] | | | PLASMA | | mmol/L | DEPARTMENT | | | (LAB) | | | OF | | | | | | PATHOLOGY | | + + + + + + | POTASSIUM, | 3.7 | 3.4 - 5.0 | [facility] | | | PLASMA | | mmol/L | DEPARTMENT | | | (LAB) | | | OF | | | | | | PATHOLOGY | | + + + + + + | CHLORIDE, | 100 | 97 - 108 mmol/L | [facility] | | | PLASMA | | | DEPARTMENT | | | (LAB) | | | OF | | | | | | PATHOLOGY | | + + + + + + | TOTAL CO2, | 29Comment: New Total | 22 - 29 mmol/L | [facility] | | | PLASMA | CO2 reference range | | DEPARTMENT | | | (LAB) | effective 08/22/10. | | OF | | | | | | PATHOLOGY | | + + + + + + | CALCIUM, | 8.4 (L) | 8.6 - 10.2 | [facility] | | | PLASMA | | mg/dL | DEPARTMENT | | | (LAB) | | | OF | | | | | | PATHOLOGY | | + + + + + + | ANION GAP | 5 | 4 - 11 mmol/L | [facility] [...] + + + | [facility] | [address] | [place] [address] | | | PATHOLOGY | [address] | | | + + + + + CBC, WITH DIFFERENTIAL (10/21/2010 3:44 AM PST) + + + + + + | Component | Value | Ref Range | Performed | Pathologist | | | | | At | Signature | + + + + + + | WHITE CELL | 15.1 (H) | 4.4 - 11.0 K/cu | [facility] | | | COUNT | | mm | DEPARTMENT | | | | | | OF | | | | | | PATHOLOGY | | + + + + + + | RED CELL | 3.71 (L) | 4.00 - 5.20 | [facility] | | | COUNT | | M/cu mm | DEPARTMENT | | | | | | OF | | | | | | PATHOLOGY | | + + + + + + | HEMOGLOBIN | 10.8 (L) | 12.0 - 16.0 | [facility] | | | | | g/dL | DEPARTMENT | | | | | | OF | | | | | | PATHOLOGY | | + + + + + + | HEMATOCRIT | 32.4 (L) | 36.0 - 46.0 % | [facility] | | | | | | DEPARTMENT | | | | | | OF | | | | | | PATHOLOGY | | + + + + + + | MCV | 87.5 | 80.0 - 96.0 fL | [facility] [...] + + + + | RDW | 14.9 | 11.5 - 15.0 % | [facility] | | | | | | DEPARTMENT | | | | | | OF | | | | | | PATHOLOGY | | + + + + + + | PLATELET | 616 (H) | 150 - 400 K/cu | [...] + + + + + + | DIFF | <or= 10% bands seen on | | [facility] | | | COMMENTS | scan. | | DEPARTMENT | | | | | | OF | | | | | | PATHOLOGY | | + + + + + + + + | Specimen | + + | Blood - Blood | + + + + + | Narrative | Performed At | + + + | * Corrected 10/21/10 05:44: PABLONEL COMMENTS, prev report: Slide | LION | | review pending. | DEPARTMENT OF | | | PATHOLOGY | + + + + + + + + | Performing | Address | City/State/Zipcode | Phone Number | | Organization | | | | + + + + + | [facility] DE[facility] | [address] | [place] [address] | | | PATHOLOGY | [address] | | | + + + + + RESP CARE THERAPY (10/21/2010 3:38 AM PST) + + + + +-------- ------+ | Component | Value | Ref Range | Performed | Patholo gist | | | | | At | Signatu re | + + + + +-------- ------+ | RESPIRATORY | Oxygen device on | | [facility] | | | CARE | standby, nasal canula. | | RESPIRATORY | | | | Electronically | | THERAPY | | | | Signed by: Angelo Bunch, | | | | | | ADDICTION TREATMENT COUNSELOR | | | | | | | | | | | | | | | | | | | | | | | | | | | | | |Electronically Signed by: Angelo Bunch ADDICTION TREATMENT COUNSELOR | | | | + + + + +-------- ------+ + + | Specimen | + + | | + + + + + + + | Performing | Address | City/State/Zipcode | Phone Number | | Organization | | | | + + + + + | [facility] | [address] | [place], [place] | | | THERAPY | [address] | [address] | | + + + + + RESP CARE THERAPY (10/21/2010 3:21 AM PST) + + + + +-------- ------+ | Component | Value | Ref Range | Performed | Patholo gist | | | | | At | Signatu re | + + + + +-------- ------+ | RESPIRATORY | Home CPAP/BiLevel check | | [facility] | | | CARE | and patient assesment: | | RESPIRATORY | | | | This is a routine check | | THERAPY | | | | of the home BiLevel | | | | | | device and the patient. | | | | | | Thepatient is asleep but | | | | | | not using their | | | | | | non-invasive device at | | | | | | this time HR =92 RR= 16 | | | | | | SPO2= 96 % | | | | | | Electronically Signed | | | | | | by: Angelo Bunch RCP | | | | | | | | | | | |Electronically Signed by: Angelo Bunch RCP | | | | + + + + +-------- ------+ + + | Specimen | + + | | + + + + + + + | Performing | Address | City/State/Zipcode | Phone Number | | Organization | | | | + + + + + | [facility] | [address] [facility] | [place], [place] | | | THERAPY | [facility] | [phone] | | + + + + + RESP CARE THERAPY (10/20/2010 10:07 PM PST) + + + + +-------- ------+ | Component | Value | Ref Range | Performed | Patholo gist | | | | | At | Signatu re | + + + + +-------- ------+ | RESPIRATORY | Home CPAP/BiLevel check | | [facility] | | | CARE | and patient assesment: | | RESPIRATORY | | | | This is a routine check | | THERAPY | | | | of the home CPAP device | | | | | | and the patient. The | | | | | | deviceis not in use at | | | | | | this time, The patient | | | | | | is not yet ready to go | | | | | | to sleep. | | | | | | Electronically Signed | | | | | | by: Angelo Bunch RCP | | | | | | | | | | | |Electronically Signed by: Angelo Bunch RCP | | | | + + + + +-------- ------+ + + | Specimen | + + | | + + + + + + + | Performing | Address | City/State/Zipcode | Phone Number | | Organization | | | | + + + + + | [facility] | [address] | [place], [place] | | | THERAPY | [address] | [address] | | + + + + + C-REACT PRTN (FOR INFLAMMATION) (10/20/2010 7:02 AM PST) + + + + + + | Component | Value | Ref Range | Performed | Pathologist | | | | | At | Signature | + + + + + + | C-REACTIVE | 14.0 (H) | <0.6 mg/dl | [facility] | | | PROTEIN | | | REGIONAL | | | | | | LABORATORY | | + + + + + + + + | Specimen | + + | Blood - Blood | + + + + + | Narrative | Performed At | + + + | Reference Range Change effective 10/26/08 | [facility] | | [facility] | REGIONAL | | [place] [address] | LABORATORY | | [place] [address] | | + + + + + + + + | Performing | Address | City/State/Zipcode | Phone Number | | Organization | | | | + + + + + | [facility] | [address] | [place] [address] | | | LABORATORY | | | | + + + + + DIFFERENTIAL (10/20/2010 6:44 AM PST) + +---------+ + + + | Component | Value | Ref Range | Performed | Pathologist | | | | | At | Signature | + +---------+ + + + | NEUTROPHIL | 78 (H) | 50 - 70 % | [facility] | | | % | | | DEPARTMENT | | | | | | OF | | | | | | PATHOLOGY | | + +---------+ + + + | LYMPHOCYTE | 14 (L) | 18 - 42 % | [facility] [...] + + + | BASO % | 0 | <3 % | [facility] | | | | | | DEPARTMENT | | | | | | OF | | | | | | PATHOLOGY | | + +---------+ + + + | NEUTROPHIL | 9.8 (H) | 1.8 - 7.7 K/cu | [facility] | | | # | | mm | DEPARTMENT | | | | | | OF | | | | | | PATHOLOGY | | + +---------+ + + + | LYMPHOCYTE | 1.8 | 1.0 - 4.8 K/cu | [facility] [...] + + + | BASO # | 0.0 | <0.3 | [facility] | | | [...] DEPARTMENT OF | [address] | [place] [address] | | | PATHOLOGY | [address] | | | + + + + + CBC, WITH DIFFERENTIAL (10/20/2010 6:44 AM PST) + + + + + + | Component | Value | Ref Range | Performed | Pathologist | | | | | At | Signature | + + + + + + | WHITE CELL | 12.6 (H) | 4.4 - 11.0 K/cu | [facility] | | | COUNT | | mm | DEPARTMENT | | | | | | OF | | | | | | PATHOLOGY | | + + + + + + | RED CELL | 3.86 (L) | 4.00 - 5.20 | [facility] | | | COUNT | | M/cu mm | DEPARTMENT | | | | | | OF | | | | | | PATHOLOGY | | + + + + + + | HEMOGLOBIN | 11.3 (L) | 12.0 - 16.0 | [facility] | | | | | g/dL | DEPARTMENT | | | | | | OF | | | | | | PATHOLOGY | | + + + + + + | HEMATOCRIT | 33.8 (L) | 36.0 - 46.0 % | [facility] | | | | | | DEPARTMENT | | | | | | OF | | | | | | PATHOLOGY | | + + + + + + | MCV | 87.5 | 80.0 - 96.0 fL | [facility] [...] + + + + | RDW | 14.8 | 11.5 - 15.0 % | [facility] | | | | | | DEPARTMENT | | | | | | OF | | | | | | PATHOLOGY | | + + + + + + | PLATELET | 574 (H) | 150 - 400 K/cu | [...] DEPARTMENT OF | [address] | [place] [address] | | | PATHOLOGY | [address] | | | + + + + + SEDIMENTATION RATE (10/20/2010 6:44 AM PST) + +---------+ + + + | Component | Value | Ref Range | Performed | Pathologist | | | | | At | Signature | + +---------+ + + + | SEDIMENTATI | 108 (H) | <31 mm/hr | [facility] | [...] + + + | [facility] | [address] | [place] [address] | | | PATHOLOGY | [address] | | | + + + + + C-REACT PRTN (FOR INFLAMMATION) (10/20/2010 6:44 AM PST) + + + + + + | Component | Value | Ref Range | Performed | Pathologist | | | | | At | Signature | + + + + + + | C-REACTIVE | Dupl order. | mg/dl | [facility] | | | PROTEIN | | | [...] | + + + + + | [facility] | [address] | [place] [address] | | | LABORATORY | | | | + + + + + COMPLETE METABOLIC SET (NA,K,CL,CO2,BUN,CREAT,GLUC,CA,AST,ALT,BILI TOTAL,ALK PHOS,ALB,PROT TOTAL) (10/20/2010 6:44 AM PST) + + + + + + | Component | Value | Ref Range | Performed | Pathologist | | | | | At | Signature | + + + + + + | GLUCOSE, | 131 (H) | 60 - 99 mg/dL | [facility] | | | PLASMA | | | DEPARTMENT | | | (LAB) | | | OF | | | | | | PATHOLOGY | | + + + + + + | BUN, PLASMA | 11 | 6 - 20 mg/dL | [facility] | | | (LAB) | | | DEPARTMENT | | | | | | OF | | | | | | PATHOLOGY | | + + + + + + | CREATININE | 0.65 | 0.60 - 1.10 | [facility] | | | PLASMA | | mg/dL | DEPARTMENT | | | (LAB) | | | OF | | | | | | PATHOLOGY | | + + + + + + | TOTAL | 6.6 | 6.1 - 7.9 g/dL | [facility] | | | PROTEIN, | | | DEPARTMENT | | | PLASMA | | | OF | | | (LAB) | | | PATHOLOGY | | + + + + + + | ALBUMIN, | 2.3 (L) | 3.5 - 4.7 g/dL | [facility] | | | PLASMA | | | DEPARTMENT | | | (LAB) | | | OF | | | | | | PATHOLOGY | | + + + + + + | CALCIUM, | 8.5 (L) | 8.6 - 10.2 | [facility] | | | PLASMA | | mg/dL | DEPARTMENT | | | (LAB) | | | OF | | | | | | PATHOLOGY | | + + + + + + | BILIRUBIN | 1.0 | 0.3 - 1.2 mg/dL | [facility] | | | TOTAL | | | DEPARTMENT | | | | | | OF | | | | | | PATHOLOGY | | + + + + + + | ALK PHOS | 104 (H) | 42 - 98 U/L | [facility] | | | | | | DEPARTMENT | | | | | | OF | | | | | | PATHOLOGY | | + + + + + + | AST(SGOT) | 25 | 15 - 41 U/L | [facility] | | | | | | DEPARTMENT | | | | | | OF | | | | | | PATHOLOGY | | + + + + + + | SODIUM, | 135 | 134 - 143 | [facility] | | | PLASMA | | mmol/L | DEPARTMENT | | | (LAB) | | | OF | | | | | | PATHOLOGY | | + + + + + + | POTASSIUM, | 4.1 | 3.4 - 5.0 | [facility] | | | PLASMA | | mmol/L | DEPARTMENT | | | (LAB) | | | OF | | | | | | PATHOLOGY | | + + + + + + | CHLORIDE, | 98 | 97 - 108 mmol/L | [facility] | | | PLASMA | | | DEPARTMENT | | | (LAB) | | | OF | | | | | | PATHOLOGY | | + + + + + + | TOTAL CO2, | 30 (H)Comment: New | 22 - 29 mmol/L | [facility] | | | PLASMA | Total CO2 reference | | DEPARTMENT | | | (LAB) | range effective | | OF | | | | 08/22/10. | | PATHOLOGY | | + + + + + + | ALT (SGPT) | 35 | 13 - 48 U/L | [facility] | | | | | | DEPARTMENT | | | | | | OF | | | | | | PATHOLOGY | | + + + + + + | ANION GAP | 7 | 4 - 11 mmol/L | [facility] | | | | | | DEPARTMENT | | | | | | OF | | | | | | PATHOLOGY | | + + + + + + | ANION | 11 | 4 - 11 mmol/L | [facility] [...] DEPARTMENT OF | [address] | [place] [address] | | | PATHOLOGY | [address] | | | + + + + + RESP CARE THERAPY (10/20/2010 4:59 AM PST) + + + + +------ --------+ | Component | Value | Ref Range | Performed | Patho logist | | | | | At | Signa ture | + + + + +------ --------+ | RESPIRATORY | Oxygen device on | | [facility] | | | CARE | standby, nasal canula. | | RESPIRATORY | | | | Electronically | | THERAPY | | | | Signed by: Cha Miles, | | | | | | ADDICTION TREATMENT COUNSELOR | | | | | | | | | | | | | | | | | | | | | | | | | | | | | |Electronically Signed by: ENRRIQUE MondragonP | | | | + + + + +------ --------+ + + | Specimen | + + | | + + + + + + + | Performing | Address | City/State/Zipcode | Phone Number | | Organization | | | | + + + + + | [facility] | [address] | [place], [place] | | | THERAPY | [address] | [address] | | + + + + + DIFFERENTIAL (10/20/2010 3:32 AM PST) + + + + + + | Component | Value | Ref Range | Performed | Pathologist | | | | | At | Signature | + + + + + + | NEUTROPHIL | 76 (H) | 50 - 70 % | [facility] | | | % | | | DEPARTMENT | | | | | | OF | | | | | | PATHOLOGY | | + + + + + + | LYMPHOCYTE | 15 (L) | 18 - 42 % | [facility] [...] + + + + | NEUTROPHIL | 10.4 (H) | 1.8 - 7.7 K/cu | [facility] | | | # | | mm | DEPARTMENT | | | | | | OF | | | | | | PATHOLOGY | | + + + + + + | LYMPHOCYTE | 2.1 | 1.0 - 4.8 K/cu | [facility] | | | # | | mm | DEPARTMENT | | | | | | OF | | | | | | PATHOLOGY | | + + + + + + | MONOCYTE # | 0.8 | <0.9 K/cu mm | [facility] | [...] DEPARTMENT OF | [address] | [place] [address] | | | PATHOLOGY | [address] | | | + + + + + BASIC METABOLIC SET (NA, K, CL, TCO2, BUN, CR, GLU, CA) (10/20/2010 3:32 AM PST) + + + + + + | Component | Value | Ref Range | Performed | Pathologist | | | | | At | Signature | + + + + + + | GLUCOSE, | 139 (H) | 60 - 99 mg/dL | [facility] | | | PLASMA | | | DEPARTMENT | | | (LAB) | | | OF | | | | | | PATHOLOGY | | + + + + + + | BUN, PLASMA | 10 | 6 - 20 mg/dL | [facility] | | | (LAB) | | | DEPARTMENT | | | | | | OF | | | | | | PATHOLOGY | | + + + + + + | CREATININE | 0.59 (L) | 0.60 - 1.10 | [facility] | | | PLASMA | | mg/dL | DEPARTMENT | | | (LAB) | | | OF | | | | | | PATHOLOGY | | + + + + + + | SODIUM, | 134 | 134 - 143 | [facility] | | | PLASMA | | mmol/L | DEPARTMENT | | | (LAB) | | | OF | | | | | | PATHOLOGY | | + + + + + + | POTASSIUM, | 3.9 | 3.4 - 5.0 | [facility] | | | PLASMA | | mmol/L | DEPARTMENT | | | (LAB) | | | OF | | | | | | PATHOLOGY | | + + + + + + | CHLORIDE, | 97 | 97 - 108 mmol/L | [facility] | | | PLASMA | | | DEPARTMENT | | | (LAB) | | | OF | | | | | | PATHOLOGY | | + + + + + + | TOTAL CO2, | 31 (H)Comment: New | 22 - 29 mmol/L | [facility] | | | PLASMA | Total CO2 reference | | DEPARTMENT | | | (LAB) | range effective | | OF | | | | 08/22/. | | PATHOLOGY | | + + + + + + | CALCIUM, | 8.3 (L) | 8.6 - 10.2 | [facility] | | | PLASMA | | mg/dL | DEPARTMENT | | | (LAB) | | | OF | | | | | | PATHOLOGY | | + + + + + + | ANION GAP | 6 | 4 - 11 mmol/L | [facility] [...] + + + | [facility] | [address] | [place] [address] | | | PATHOLOGY | [address] | | | + + + + + CBC, WITH DIFFERENTIAL (10/20/2010 3:32 AM PST) + + + + + + | Component | Value | Ref Range | Performed | Pathologist | | | | | At | Signature | + + + + + + | WHITE CELL | 13.7 (H) | 4.4 - 11.0 K/cu | [facility] | | | COUNT | | mm | DEPARTMENT | | | | | | OF | | | | | | PATHOLOGY | | + + + + + + | RED CELL | 3.80 (L) | 4.00 - 5.20 | [facility] | | | COUNT | | M/cu mm | DEPARTMENT | | | | | | OF | | | | | | PATHOLOGY | | + + + + + + | HEMOGLOBIN | 11.2 (L) | 12.0 - 16.0 | [facility] | | | | | g/dL | DEPARTMENT | | | | | | OF | | | | | | PATHOLOGY | | + + + + + + | HEMATOCRIT | 33.2 (L) | 36.0 - 46.0 % | [facility] | | | | | | DEPARTMENT | | | | | | OF | | | | | | PATHOLOGY | | + + + + + + | MCV | 87.4 | 80.0 - 96.0 fL | [facility] [...] + + + + | RDW | 14.8 | 11.5 - 15.0 % | [facility] | | | | | | DEPARTMENT | | | | | | OF | | | | | | PATHOLOGY | | + + + + + + | PLATELET | 593 (H) | 150 - 400 K/cu | [...] + + + | [facility] | [address] | [place] [address] | | | PATHOLOGY | [address] | | | + + + + + IP CONSULT TO KRISTIE DOWNS (10/19/2010 10:48 AM PST) + + + | Narrative | Performed At | + + + | ANABELLA RAMIREZ 10/19/2010 10:48:32 AM PICC INSERTION | | | DOCUMENTATION NOTE At 1000 (time), prior to the beginning of the | | | procedure, the team paused to verify the patient | | | | | | s identity, the procedure to be performed (in accordance with the | | | consent,) and the correct side/site. The patient was positioned | | | appropriately. All relevant images and results were properly labeled | | | and displayed. We addressed antibiotic prophylaxis and fluids for | | | irrigation as applicable to this patient. Any safety precautions were | | | addressed. Today | | | | | | s Date: 10/19/2010 Start Time: 1000 Patient Location (Unit/Room #): | | | 10A Diagnosis: wound infection Indications: (Select all that apply) | | | Antibiotics Allergies: Allergies Allergen Reactions | | | Lipitor (Atorvastatin Calcium) | | | Sulfa (Sulfonamides) Gives intestinal flu | | | Adhesive Tape Rash Procedure Preparation: Reviewed Allergies | | | (Heparin, chlorhexidine, local anesthetic): Yes Informed consent | | | obtained: Yes Maximum Sterile Barrier Precautions: Hands washed | | | prior to gloving. Sterile gloves and gown worn by provider placing | | | line. Masks worn by all in room. Site prepped with Chloraprep. | | | FULL barrier drape used and sterile field maintained at all times. | | | PICC CATHETER Product Name: Boogie Construction: Single 4 Fr | | | 60cm Long 1cm Trimmed Lot # (or Sticker): [id number] INSERTION SITE: | | | - Cephalic Left Local anesthetic used: lidocaine Sedation used: | | | nond Ultrasound: Yes Microintroducer: Yes Caps placed after | | | insertion: Yes Each lumen flushed with: 20 mL of Normal Saline Blood | | | Return Noted: Yes Sterile dressing applied prior to sterile field | | | removal: Yes Complications: Pt tolerated procedure with minimal | | | discomfort and without complications. Adjustments after x-ray: none | | | Final cm exposed: 4 Tip location: Picc tip at the caval atrial | | | junction verified by CXR [place]: [place] [id number] | | | Assisted by: na | | + + + + + | Procedure Note | + + | Anabella Ramirez, HERMINIO - 10/19/2010 10:14 AM PST Formatting of this note might be | | different from the original.PICC INSERTION DOCUMENTATION NOTEAt 1000 (time), prior to | | the beginning of the procedure, the team paused to verify the patient | | | | s identity, the procedure to be performed (in accordance with the consent,) and the | | correct side/site. The patient was positioned appropriately. All relevant images and | | results were properly labeled and displayed. We addressed antibiotic prophylaxis and | | fluids for irrigation as applicable to this patient. Any safety precautions were | | addressed.Today | | | | s Date: 10/19/2010Start Time: 1000Patient Location (Unit/Room #): 10ADiagnosis: wound | | infectionIndications: (Select all that apply) Antibiotics Allergies: Allergies Allergen | | Reactions | | Lipitor (Atorvastatin Calcium) | | Sulfa (Sulfonamides) Gives intestinal flu | | Adhesive Tape Rash Procedure Preparation:Reviewed Allergies (Heparin, chlorhexidine, | | local anesthetic): YesInformed consent obtained: YesMaximum Sterile Barrier Precautions: | | Hands washed prior to gloving. Sterile gloves and gown worn by provider placing line. | | Masks worn by all in room. Site prepped with Chloraprep. FULL barrier drape used and | | sterile field maintained at all times.PICC CATHETERProduct Name: BoogieConstruction: | | Single4 Fr60cm [id number] TrimmedLot # (or Sticker): [id number] SITE: - | | CephalicLeftLocal anesthetic used: lidocaineSedation used: nondUltrasound: | | YesMicrointroducer: YesCaps placed after insertion: YesEach lumen flushed with: 20 mL of | | Normal SalineBlood Return Noted: YesSterile dressing applied prior to sterile field | | removal: YesComplications: Pt tolerated procedure with minimal discomfort and without | | complications.Adjustments after x-ray: noneFinal cm exposed: 4Tip location: Picc tip at | | the caval atrial junction verified by CXRPlaced by: Anabella Ramirez RN IVT [id number] | | by: na | |PICC CATHETER | |Product Name: Boogie | |Construction: Single | |4 Fr | |60cm Long | |1cm Trimmed | |Lot # (or Sticker): [id number] | | | |INSERTION SITE: - Cephalic | |Left | | | |Local anesthetic used: lidocaine | |Sedation used: nond | |Ultrasound: Yes | |Microintroducer: Yes | |Caps placed after insertion: Yes | |Each lumen flushed with: 20 mL of Normal Saline | |Blood Return Noted: Yes | |Sterile dressing applied prior to sterile field removal: Yes | |Complications: Pt tolerated procedure with minimal discomfort and without complications. | | | |Adjustments after x-ray: none | |Final cm exposed: 4 | |Tip location: Picc tip at the caval atrial junction verified by CXR | |Placed [place]: [place] [id number] | |Assisted by: na | + + X-RAY PORTABLE CHEST 1 VIEW (10/19/2010 10:45 AM PST) + + + + + + | Component | Value | Ref Range | Performed | Pathologist | | | | | At | Signature | + + + + + + | X-RAY | STUDY: [place] CHEST 1 VIEW | | | | | PORTABLE | 10/19/10 10:45:00 | | | | | CHEST 1 | COMPARISON: 10/13/10. | | | | | VIEW | HISTORY: PICC placement. | | | | | | FINDINGS: Left upper | | | | | | extremity PICC has been | | | | | | placed with the tip | | | | | | projectingnear the | | | | | | cavoatrial junction. | | | | | | The lungs are clear. | | | | | | There is | | | | | | nopneumothorax. The | | | | | | cardiomediastinal | | | | | | silhouette is normal. | | | | | | IMPRESSION: 1.Left upper | | | | | | extremity PICC with the | | | | | | tip projecting at the | | | | | | cavoatrialjunction. 2. | | | | | | Clear lungs. I have | | | | | | personally viewed this | | | | | | procedure/exam and | | | | | | reviewed this report. | | | | | | Author: ROBERT | | | | | | Trinh ALAN: | | | | | | ELEAZAR ENGLAND M.D. STATUS | | | | | | FINAL / Dr. BUSH | | | | | | TOMÁSSTATUS PENDING | | | | | | FINAL APPROVAL / | | | | | | ROBERT ROSA | | | | | | PRELIMINARY - UNSIGNED / | | | | | | Dr. ROBERT ALAN | | | | + + + + + + + + | Specimen | + + | | + + + +---------+ + + | Performing | Address | City/State/Zipcode | Phone Number | | Organization | | | | + +---------+ + + | [facility] DEPARTMENT OF | | | | | RADIOLOGY | | | | + +---------+ + + RESP CARE THERAPY (10/19/2010 10:00 AM PST) + + + + + + | Component | Value | Ref Range | Performed | Pathologist | | | | | At | Signature | + + + + + + | RESPIRATORY | Inhaled medication | | [facility] | | | CARE | treatment was not given. | | RESPIRATORY | | | | The patient was | | THERAPY | | | | assessed.Therapy was not | | | | | | indicated. | | | | | | Electronically Signed | | | | | | by: Lida Guardado, | | | | | | ADDICTION TREATMENT COUNSELOR | | | | + + + + + + + + | Specimen | + + | | + + + + + + + | Performing | Address | City/State/Zipcode | Phone Number | | Organization | | | | + + + + + | [facility] | [address] | [place], [place] | | | THERAPY | [address] | [address] | | + + + + + DIFFERENTIAL (10/19/2010 8:37 AM PST) + + + + + + | Component | Value | Ref Range | Performed | Pathologist | | | | | At | Signature | + + + + + + | NEUTROPHIL | 77 (H) | 50 - 70 % | [facility] | | | % | | | DEPARTMENT | | | | | | OF | | | | | | PATHOLOGY | | + + + + + + | LYMPHOCYTE | 15 (L) | 18 - 42 % | [facility] [...] + + + | BASO % | 0 | <3 % | [facility] | | | | | | DEPARTMENT | | | | | | OF | | | | | | PATHOLOGY | | + + + + + + | NEUTROPHIL | 10.8 (H) | 1.8 - 7.7 K/cu | [facility] | | | # | | mm | DEPARTMENT | | | | | | OF | | | | | | PATHOLOGY | | + + + + + + | LYMPHOCYTE | 2.1 | 1.0 - 4.8 K/cu | [facility] | | | # | | mm | DEPARTMENT | | | | | | OF | | | | | | PATHOLOGY | | + + + + + + | MONOCYTE # | 0.7 | <0.9 K/cu mm | [facility] | [...] + + + | BASO # | 0.0 | <0.3 | [facility] | | | [...] + + + | [facility] | [address] | [place] [address] | | | PATHOLOGY | [address] | | | + + + + + BASIC METABOLIC SET (NA, K, CL, TCO2, BUN, CR, GLU, CA) (10/19/2010 8:37 AM PST) + + + + + + | Component | Value | Ref Range | Performed | Pathologist | | | | | At | Signature | + + + + + + | GLUCOSE, | 121 (H) | 60 - 99 mg/dL | [facility] | | | PLASMA | | | DEPARTMENT | | | (LAB) | | | OF | | | | | | PATHOLOGY | | + + + + + + | BUN, PLASMA | 7 | 6 - 20 mg/dL | [facility] | | | (LAB) | | | DEPARTMENT | | | | | | OF | | | | | | PATHOLOGY | | + + + + + + | CREATININE | 0.71 | 0.60 - 1.10 | [facility] | | | PLASMA | | mg/dL | DEPARTMENT | | | (LAB) | | | OF | | | | | | PATHOLOGY | | + + + + + + | SODIUM, | 133 (L) | 134 - 143 | [facility] | | | PLASMA | | mmol/L | DEPARTMENT | | | (LAB) | | | OF | | | | | | PATHOLOGY | | + + + + + + | POTASSIUM, | 4.6 | 3.4 - 5.0 | [facility] | | | PLASMA | | mmol/L | DEPARTMENT | | | (LAB) | | | OF | | | | | | PATHOLOGY | | + + + + + + | CHLORIDE, | 94 (L) | 97 - 108 mmol/L | [facility] | | | PLASMA | | | DEPARTMENT | | | (LAB) | | | OF | | | | | | PATHOLOGY | | + + + + + + | TOTAL CO2, | 30 (H)Comment: New | 22 - 29 mmol/L | [facility] | | | PLASMA | Total CO2 reference | | DEPARTMENT | | | (LAB) | range effective | | OF | | | | 08/22/10. | | PATHOLOGY | | + + + + + + | CALCIUM, | 8.8 | 8.6 - 10.2 | [facility] | [...] DEPARTMENT OF | [address] | [place] [address] | | | PATHOLOGY | [address] | | | + + + + + CBC, WITH DIFFERENTIAL (10/19/2010 8:37 AM PST) + + + + + + | Component | Value | Ref Range | Performed | Pathologist | | | | | At | Signature | + + + + + + | WHITE CELL | 14.0 (H) | 4.4 - 11.0 K/cu | [facility] | | | COUNT | | mm | DEPARTMENT | | | | | | OF | | | | | | PATHOLOGY | | + + + + + + | RED CELL | 4.23 | 4.00 - 5.20 | [facility] | | | COUNT | | M/cu mm | DEPARTMENT | | | | | | OF | | | | | | PATHOLOGY | | + + + + + + | HEMOGLOBIN | 12.4 | 12.0 - 16.0 | [facility] | | | | | g/dL | DEPARTMENT | | | | | | OF | | | | | | PATHOLOGY | | + + + + + + | HEMATOCRIT | 37.4 | 36.0 - 46.0 % | [facility] | | | | | | DEPARTMENT | | | | | | OF | | | | | | PATHOLOGY | | + + + + + + | MCV | 88.4 | 80.0 - 96.0 fL | [facility] | | | | | | DEPARTMENT | | | | | | OF | | | | | | PATHOLOGY | | + + + + + + | MCHC | 33.2 (L) | 33.4 - 35.5 | [facility] | | | | | g/dL | DEPARTMENT | | | | | | OF | | | | | | PATHOLOGY | | + + + + + + | RDW | 14.6 | 11.5 - 15.0 % | [facility] | | | | | | DEPARTMENT | | | | | | OF | | | | | | PATHOLOGY | | + + + + + + | PLATELET | 667 (H) | 150 - 400 K/cu | [...] | + + + + + | [facility] DEPARTMENT | [address] | [place] [address] | | | PATHOLOGY | [address] | | | + + + + + RESP CARE THERAPY (10/19/2010 4:46 AM PST) + + + + +------- -------+ | Component | Value | Ref Range | Performed | Pathol ogist | | | | | At | Signat ure | + + + + +------- -------+ | RESPIRATORY | Nasal cannula at 3 LPM. | | [facility] | | | CARE | Electronically | | RESPIRATORY | | | | Signed by: Elaine | | HERIBERTO | | | | Denise | | | | | | | | | | | | | | | | | | | | | | | | | | | | | | | | | | | |Electronically Signed by: Elaine Walker, | | | | + + + + +------- -------+ + + | Specimen | + + | | + + + + + + + | Performing | Address | City/State/Zipcode | Phone Number | | Organization | | | | + + + + + | [facility] | [address] | [place], [place] | | | THERAPY | [address] | [address] | | + + + + + CAPILLARY BLOOD GLUCOSE, POC (10/18/2010 6:16 PM PST) + +---------+ + + + | Component | Value | Ref Range | Performed | Pathologist | | | | | At | Signature | + +---------+ + + + | BLOOD | 168 (H) | 60 - 99 mg/dL | [facility] | | | GLUCOSE, | | | [facility] | | | POC | | | [facility] | | | | | | OF CARE | | | | | | TESTS | | + +---------+ + + + + + | Specimen | + + | | + + + + + + + | Performing | Address | City/State/Zipcode | Phone Number | | Organization | | | | + + + + + | [facility] | [address] | [place], [place] | | | [facility] PO[facility] OF CARE | [address] | [address] | | | TESTS | | | | + + + + + NOTIFICATION (10/18/2010 1:52 PM PST) + + + + + + | Component | Value | Ref Range | Performed | Pathologist | | | | | At | Signature | + + + + + + | TEST NAME | C. Diff by PCR | | [facility] | | | | | | DEPARTMENT | | | | | | OF | | | | | | PATHOLOGY | | + + + + + + | SOURCE | Stool | | [facility] | | | | | | DEPARTMENT | | | | | | OF | | | | | | PATHOLOGY | | + + + + + + | RESULT | Positive | | [facility] | | | CALLED | | | DEPARTMENT | | | | | | OF | | | | | | PATHOLOGY | | + + + + + + | CALLED TO | Shannon Acevedo | | [facility] | | | | [...] | + + + + + | [facility] | [address] | [place] [address] | | | PATHOLOGY | [address] | | | + + + + + C. DIFFICILE PCR (10/18/2010 1:52 PM PST) + + + + + + | Component | Value | Ref Range | Performed | Pathologist | | | | | At | Signature | + + + + + + | C. | Positive by PCR (A) | | [facility] | | | DIFFICILE | | | REGIONAL | | | PCR | | | LAB-MICRO | | + + + + + + + + | Specimen | + + | | + + + + + | Narrative | Performed At | + + + | [facility] [facility] | REGIS | | [address] [facility] | REGIONAL | | [place] [address] | LAB-MICRO | + + + + + + + + | Performing | Address | City/State/Zipcode | Phone Number | | Organization | | | | + + + + + | [facility] | [address] | [place] [address] | | | LAB-MICRO | | | | + + + + + C. DIFFICILE TOXIN (10/18/2010 1:52 PM PST) + + + + + + | Component | Value | Ref Range | Performed | Pathologist | | | | | At | Signature | + + + + + + | C. | Indeterminate; to be | | [facility] | | | DIFFICILE | confirmed by | | DEPARTMENT | | | TOXIN | PCR.Comment: | | OF | | | | Reference Range: | | PATHOLOGY | | | | Negative New | | | | | | method effective | | | | | | 01/17/10. | | | | + + + + + + + + | Specimen | + + | | + + + + + + + | Performing | Address | City/State/Zipcode | Phone Number | | Organization | | | | + + + + + | [facility] | [address] | [place] [address] | | | PATHOLOGY | [address] | | | + + + + + CAPILLARY BLOOD GLUCOSE, POC (10/18/2010 12:53 PM PST) + +---------+ + + + | Component | Value | Ref Range | Performed | Pathologist | | | | | At | Signature | + +---------+ + + + | BLOOD | 145 (H) | 60 - 99 mg/dL | [facility] - | | | GLUCOSE, | | | [facility] | | | POC | | | [facility] | | | | | | OF CARE | | | | | | TESTS | | + +---------+ + + + + + | Specimen | + + | | + + + + + + + | Performing | Address | City/State/Zipcode | Phone Number | | Organization | | | | + + + + + | [facility] | [address] | [place], [place] | | | [facility] [place] [facility] | [address] | [address] | | | TESTS | | | | + + + + + CAPILLARY BLOOD GLUCOSE, POC (10/18/2010 7:36 AM PST) + +---------+ + + + | Component | Value | Ref Range | Performed | Pathologist | | | | | At | Signature | + +---------+ + + + | BLOOD | 150 (H) | 60 - 99 mg/dL | [facility] - | | | GLUCOSE, | | | [facility] | | | POC | | | [facility] | | | | | | OF CARE | | | | | | TESTS | | + +---------+ + + + + + | Specimen | + + | | + + + + + + + | Performing | Address | City/State/Zipcode | Phone Number | | Organization | | | | + + + + + | [facility] | [address] | [place], [place] | | | [facility] CARE | [address] | [address] | | | TESTS | | | | + + + + + DIFFERENTIAL (10/18/2010 7:26 AM PST) + +---------+ + + + | Component | Value | Ref Range | Performed | Pathologist | | | | | At | Signature | + +---------+ + + + | NEUTROPHIL | 73 (H) | 50 - 70 % | [facility] | | | % | | | DEPARTMENT | | | | | | OF | | | | | | PATHOLOGY | | + +---------+ + + + | LYMPHOCYTE | 18 | 18 - 42 % | [facility] | | | % | | | DEPARTMENT | | | | | | OF | | | | | | PATHOLOGY | | + +---------+ + + + | MONOCYTE % | 7 | 2 - 8 % | [facility] [...] +---------+ + + + | NEUTROPHIL | 8.8 (H) | 1.8 - 7.7 K/cu | [facility] | | | # | | mm | DEPARTMENT | | | | | | OF | | | | | | PATHOLOGY | | + +---------+ + + + | LYMPHOCYTE | 2.2 | 1.0 - 4.8 K/cu | [facility] | | | # | | mm | DEPARTMENT | | | | | | OF | | | | | | PATHOLOGY | | + +---------+ + + + | MONOCYTE # | 0.8 | <0.9 K/cu mm | [facility] | [...] | + + + + + | [facility] | [address] | [place] [address] | | | PATHOLOGY | [address] | | | + + + + + BASIC METABOLIC SET (NA, K, CL, TCO2, BUN, CR, GLU, CA) (10/18/2010 7:26 AM PST) + + + + + + | Component | Value | Ref Range | Performed | Pathologist | | | | | At | Signature | + + + + + + | GLUCOSE, | 125 (H) | 60 - 99 mg/dL | [facility] | | | PLASMA | | | DEPARTMENT | | | (LAB) | | | OF | | | | | | PATHOLOGY | | + + + + + + | BUN, PLASMA | 6 | 6 - 20 mg/dL | [facility] | | | (LAB) | | | DEPARTMENT | | | | | | OF | | | | | | PATHOLOGY | | + + + + + + | CREATININE | 0.55 (L) | 0.60 - 1.10 | [facility] | | | PLASMA | | mg/dL | DEPARTMENT | | | (LAB) | | | OF | | | | | | PATHOLOGY | | + + + + + + | SODIUM, | 134 | 134 - 143 | [facility] | | | PLASMA | | mmol/L | DEPARTMENT | | | (LAB) | | | OF | | | | | | PATHOLOGY | | + + + + + + | POTASSIUM, | 3.3 (L) | 3.4 - 5.0 | [facility] | | | PLASMA | | mmol/L | DEPARTMENT | | | (LAB) | | | OF | | | | | | PATHOLOGY | | + + + + + + | CHLORIDE, | 95 (L) | 97 - 108 mmol/L | [facility] | | | PLASMA | | | DEPARTMENT | | | (LAB) | | | OF | | | | | | PATHOLOGY | | + + + + + + | TOTAL CO2, | 31 (H)Comment: New | 22 - 29 mmol/L | [facility] | | | PLASMA | Total CO2 reference | | DEPARTMENT | | | (LAB) | range effective | | OF | | | | 08/22/10. | | PATHOLOGY | | + + + + + + | CALCIUM, | 8.6 | 8.6 - 10.2 | [facility] | | | PLASMA | | mg/dL | DEPARTMENT | | | (LAB) | | | OF | | | | | | PATHOLOGY | | + + + + + + | ANION GAP | 8 | 4 - 11 mmol/L | [facility] [...] + + + | [facility] | [address] | [place] [address] | | | PATHOLOGY | [address] | | | + + + + + CBC, WITH DIFFERENTIAL (10/18/2010 7:26 AM PST) + + + + + + | Component | Value | Ref Range | Performed | Pathologist | | | | | At | Signature | + + + + + + | WHITE CELL | 12.0 (H) | 4.4 - 11.0 K/cu | [facility] | | | COUNT | | mm | DEPARTMENT | | | | | | OF | | | | | | PATHOLOGY | | + + + + + + | RED CELL | 3.89 (L) | 4.00 - 5.20 | [facility] | | | COUNT | | M/cu mm | DEPARTMENT | | | | | | OF | | | | | | PATHOLOGY | | + + + + + + | HEMOGLOBIN | 11.3 (L) | 12.0 - 16.0 | [facility] | | | | | g/dL | DEPARTMENT | | | | | | OF | | | | | | PATHOLOGY | | + + + + + + | HEMATOCRIT | 34.2 (L) | 36.0 - 46.0 % | [facility] | | | | | | DEPARTMENT | | | | | | OF | | | | | | PATHOLOGY | | + + + + + + | MCV | 87.9 | 80.0 - 96.0 fL | [facility] | | | | | | DEPARTMENT | | | | | | OF | | | | | | PATHOLOGY | | + + + + + + | MCHC | 33.1 (L) | 33.4 - 35.5 | [facility] [...] + + + + | PLATELET | 526 (H) | 150 - 400 K/cu | [...] + + + | [facility] | [address] | [place] [address] | | | PATHOLOGY | [address] | | | + + + + + RESP CARE THERAPY (10/18/2010 3:30 AM PST) + + + + +------ --------+ | Component | Value | Ref Range | Performed | Patho logist | | | | | At | Signa ture | + + + + +------ --------+ | RESPIRATORY | Nasal cannula at 2.5 | | [facility] | | | CARE | LPM. | | RESPIRATORY | | | | Electronically Signed | | THERAPY | | | | by: Marilou Reeder RCP | | | | | | | | | | | | | | | | | | | | | | | | | | | | | | | | | | | |Electronically Signed by: Marilou Reeder RCP | | | | + + + + +------ --------+ + + | Specimen | + + | | + + + + + + + | Performing | Address | City/State/Zipcode | Phone Number | | Organization | | | | + + + + + | [facility] | [address] [address] [facility] | [place], [place] | | | THERAPY | [address] | [address] | | + + + + + RESP CARE THERAPY (10/18/2010 3:29 AM PST) + + + + + + | Component | Value | Ref Range | Performed | Pathologist | | | | | At | Signature | + + + + + + | RESPIRATORY | Inhaled medication | | [facility] | | | CARE | treatment was not given. | | RESPIRATORY | | | | The patient was | | THERAPY | | | | assessed.Therapy was not | | | | | | indicated. | | | | | | Electronically Signed | | | | | | by: Marilou Reeder RCP | | | | + + + + + + + + | Specimen | + + | | + + + + + + + | Performing | Address | City/State/Zipcode | Phone Number | | Organization | | | | + + + + + | [facility] | [address] | [place], [place] | | | THERAPY | [address] | [address] | | + + + + + RESP CARE THERAPY (10/17/2010 6:00 PM PST) + + + + + + | Component | Value | Ref Range | Performed | Pathologist | | | | | At | Signature | + + + + + + | RESPIRATORY | Order _ MDI therapy | | [facility] | | | CARE | omitted. Reason : The | | RESPIRATORY | | | | patient was assessed. | | THERAPY | | | | Therapy is not indicated | | | | | | - Time | | | | | | due:Electronically | | | | | | Signed by: Veronika | | | | | | Debby, | | | | + + + + + + + + | Specimen | + + | | + + + + + + + | Performing | Address | City/State/Zipcode | Phone Number | | Organization | | | | + + + + + | [facility] | [address] | [place], [place] | | | THERAPY | [address] | [address] | | + + + + + X-RAY HIP 2 VIEWS RIGHT (10/17/2010 10:29 AM PST) + + + + + + | Component | Value | Ref Range | Performed | Pathologist | | | | | At | Signature | + + + + + + | HIP 2 VIEWS | STUDY: HIP 2 VIEWS RIGHT | | | | | RIGHT | 10/17/10 10:29:00 | | | | | | COMPARISON: 10/12/10 | | | | | | FINDINGS: The | | | | | | noncemented right total | | | | | | hip arthroplasty remains | | | | | | in normalalignment. | | | | | | Hardware is intact | | | | | | without failure or | | | | | | loosening. Thereis | | | | | | been interval retrieval | | | | | | of the greater | | | | | | trochanteric | | | | | | lateralsideplates, | | | | | | screws and cerclage | | | | | | wires. Radiopaque | | | | | | material about | | | | | | theproximal femur and is | | | | | | unchanged. Superior | | | | | | displacement of | | | | | | thegreater trochanteric | | | | | | fracture fragment is | | | | | | unchanged. Remaining | | | | | | bonesare intact. | | | | | | Postsurgical changes | | | | | | are present within the | | | | | | lateral softtissues. | | | | | | IMPRESSION: Interval | | | | | | retrieval of the right | | | | | | greater trochanteric | | | | | | plate, cerclagewires and | | | | | | screws without apparent | | | | | | complication. Stable | | | | | | noncemented right total | | | | | | hip arthroplasty. I have | | | | | | personally viewed this | | | | | | procedure/exam and | | | | | | reviewed this report. | | | | | | Author: CHUYITA Meek | | | | | | RAMA NASHeviewer: | | | | | | CHUYITA NSAH MD | | | | | | STATUS FINAL / . | | | | | | CHUYITA NASH | | | | + + + + + + + + | Specimen | + + | | + + + +---------+ + + | Performing | Address | City/State/Zipcode | Phone Number | | Organization | | | | + +---------+ + + | [facility] | | | | | RADIOLOGY | | | | + +---------+ + + HEMOGLOBIN A1C, BLOOD (10/17/2010 6:05 AM PST) + +---------+ + + + | Component | Value | Ref Range | Performed | Pathologist | | | | | At | Signature | + +---------+ + + + | HEMOGLOBIN | 6.0 (H) | <5.7 % | [facility] | | | A1C | | | REGIONAL | | | | | | LABORATORY | | + +---------+ + + + + + | Specimen | + + | Blood - Blood | + + + + + | Narrative | Performed At | + + + | HbA1c Interpretive Information If you are screening for | [facility] | | diabetes: <5.7 Non-diabetic 5.7-6.4 | [facility] | | Prediabetes >6.4 Diabetes, if confirmed For | LABORATORY | | monitoring of diabetes control: <7.0 Usual goal of | | | treatment; low risk for complications 7.0-8.0 Some | | | increased risk for long-term complications >8.0 | | | Higher risk of complications; strongly consider | | | intensifying therapy [facility] [facility]) | | | [facility] [address] [facility] | | | [place] [address] | | + + + + + + + + | Performing | Address | City/State/Zipcode | Phone Number | | Organization | | | | + + + + + | [facility] | [address] | [place] [address] | | | LABORATORY | | | | + + + + + RESP CARE THERAPY (10/17/2010 1:51 AM PST) + + + + +-------- ------+ | Component | Value | Ref Range | Performed | Patholo gist | | | | | At | Signatu re | + + + + +-------- ------+ | RESPIRATORY | Nasal cannula at 2.5 | | [facility] | | | CARE | LPM. | | RESPIRATORY | | | | Electronically Signed | | THERAPY | | | | by: Lakeisha Marquez, | | | | | | | | | | | | | | | | | | | | | | | | | | | | | | | | | | | |Electronically Signed by: Lakeisha Marquez, | | | | + + + + +-------- ------+ + + | Specimen | + + | | + + + + + + + | Performing | Address | City/State/Zipcode | Phone Number | | Organization | | | | + + + + + | [facility] | [address] | [place], [place] | | | THERAPY | [address] | [address] | | + + + + + RESP CARE THERAPY (10/17/2010 1:50 AM PST) + + + + + + | Component | Value | Ref Range | Performed | Pathologist | | | | | At | Signature | + + + + + + | RESPIRATORY | Inhaled medication | | [facility] | | | CARE | treatment was not given. | | RESPIRATORY | | | | The patient was | | THERAPY | | | | assessed.Therapy was not | | | | | | indicated. | | | | | | Electronically Signed | | | | | | by: Lakeisha Marquez, | | | | + + + + + + + + | Specimen | + + | | + + + + + + + | Performing | Address | City/State/Zipcode | Phone Number | | Organization | | | | + + + + + | [facility] | [address] | [place], [place] | | | THERAPY | [address] | [address] | | + + + + + CAPILLARY BLOOD GLUCOSE, POC (10/16/2010 9:12 PM PST) + +---------+ + + + | Component | Value | Ref Range | Performed | Pathologist | | | | | At | Signature | + +---------+ + + + | BLOOD | 131 (H) | 60 - 99 mg/dL | [facility] - | | | GLUCOSE, | | | [facility] | | | POC | | | [facility] | | | | | | OF CARE | | | | | | TESTS | | + +---------+ + + + + + | Specimen | + + | | + + + + + + + | Performing | Address | City/State/Zipcode | Phone Number | | Organization | | | | + + + + + | [facility] | [address] | [place], [place] | | | [facility] CARE | [address] | [address] | | | TESTS | | | | + + + + + CAPILLARY BLOOD GLUCOSE, POC (10/16/2010 6:16 PM PST) + +---------+ + + + | Component | Value | Ref Range | Performed | Pathologist | | | | | At | Signature | + +---------+ + + + | BLOOD | 140 (H) | 60 - 99 mg/dL | [facility] - | | | GLUCOSE, | | | [facility] | | | POC | | | [facility] | | | | | | OF CARE | | | | | | TESTS | | + +---------+ + + + + + | Specimen | + + | | + + + + + + + | Performing | Address | City/State/Zipcode | Phone Number | | Organization | | | | + + + + + | [facility] | [address] | [place], [place] | | | [facility] CARE | [address] | [address] | | | TESTS | | | | + + + + + CAPILLARY BLOOD GLUCOSE, POC (10/16/2010 3:31 PM PST) + +---------+ + + + | Component | Value | Ref Range | Performed | Pathologist | | | | | At | Signature | + +---------+ + + + | BLOOD | 178 (H) | 60 - 99 mg/dL | [facility] - | | | GLUCOSE, | | | [facility] | | | POC | | | [facility] | | | | | | OF CARE | | | | | | TESTS | | + +---------+ + + + + + | Specimen | + + | | + + + + + + + | Performing | Address | City/State/Zipcode | Phone Number | | Organization | | | | + + + + + | [facility] | [address] | [place], [place] | | | [facility] | [facility] | [address] | | | TESTS | | | | + + + + + RESP CARE THERAPY (10/16/2010 10:00 AM PST) + + + + + + | Component | Value | Ref Range | Performed | Pathologist | | | | | At | Signature | + + + + + + | RESPIRATORY | Inhaled medication | | [facility] | | | CARE | treatment was not given. | | RESPIRATORY | | | | The patient was | | THERAPY | | | | assessed.Therapy was not | | | | | | indicated. | | | | | | Electronically Signed | | | | | | by: Shasha Whitmore RCP | | | | + + + + + + + + | Specimen | + + | | + + + + + + + | Performing | Address | City/State/Zipcode | Phone Number | | Organization | | | | + + + + + | [facility] | [address] | [place], [place] | | | THERAPY | [address] | [address] | | + + + + + NOTIFICATION (10/16/2010 9:50 AM PST) + + + + + + | Component | Value | Ref Range | Performed | Pathologist | | | | | At | Signature | + + + + + + | TEST NAME | Tissue Culture | | [facility] | | | | | | DEPARTMENT | | | | | | OF | | | | | | PATHOLOGY | | + + + + + + | SOURCE | Site 3, right hip. | | [facility] | | | | | | DEPARTMENT | | | | | | OF | | | | | | PATHOLOGY | | + + + + + + | RESULT | Stain: no squamous | | [facility] | | | CALLED | epithelial cells, no | | DEPARTMENT | | | | PMN's, no organisms | | OF | | | | seen.Culture: Rare | | PATHOLOGY | | | | Staphylococcus aureus | | | | + + + + + + | CALLED TO | Karen Abdalla on 10A, read | | [facility] | | | | back. 10/18/10 @ 1124. | | DEPARTMENT | | | | dt | | OF | | | | | | PATHOLOGY | | + + + + + + + + | Specimen | + + | | + + + + + + + | Performing | Address | City/State/Zipcode | Phone Number | | Organization | | | | + + + + + | [facility] | [address] | [place] [address] | | | PATHOLOGY | [address] | | | + + + + + NOTIFICATION (10/16/2010 9:50 AM PST) + + + + + + | Component | Value | Ref Range | Performed | Pathologist | | | | | At | Signature | + + + + + + | TEST NAME | Tissue culture | | [facility] | | | | | | DEPARTMENT | | | | | | OF | | | | | | PATHOLOGY | | + + + + + + | SOURCE | Right hip | | [facility] | | | | | | DEPARTMENT | | | | | | OF | | | | | | PATHOLOGY | | + + + + + + | RESULT | No squamous, rare PMN's, | | [facility] | | | CALLED | no organisms seen, 1+ | | DEPARTMENT | | | | staphylococcus, Prelim | | OF | | | | ID. | | PATHOLOGY | | + + + + + + | CALLED TO | Celine S. on 10A @15:00 on | | [facility] | | | | 10/17/10 PW. | | DEPARTMENT | | | | | | OF | | | | | | PATHOLOGY | | + + + + + + + + | Specimen | + + | | + + + + + + + | Performing | Address | City/State/Zipcode | Phone Number | | Organization | | | | + + + + + | [facility] | [address] | [place] [address] | | | PATHOLOGY | [address] | | | + + + + + NOTIFICATION (10/16/2010 9:50 AM PST) + + + + + + | Component | Value | Ref Range | Performed | Pathologist | | | | | At | Signature | + + + + + + | TEST NAME | Tissue culture | | [facility] | | | | | | DEPARTMENT | | | | | | OF | | | | | | PATHOLOGY | | + + + + + + | SOURCE | Right hip | | [facility] | | | | | | DEPARTMENT | | | | | | OF | | | | | | PATHOLOGY | | + + + + + + | RESULT | Mod. PMN's, no squamous | | [facility] | | | CALLED | epithelial cells, no | | DEPARTMENT | | | | organisms seen, | | OF | | | | 1+stapylococcus aureus, | | PATHOLOGY | | | | Prelim ID. | | | | + + + + + + | CALLED TO | Celine Sandy on 10A on | | [facility] | | | | 10/17/10 @15:00 PW. | | DEPARTMENT | | | | | | OF | | | | | | PATHOLOGY | | + + + + + + + + | Specimen | + + | | + + + + + + + | Performing | Address | City/State/Zipcode | Phone Number | | Organization | | | | + + + + + | [facility] | [address] | [place] [address] | | | PATHOLOGY | [address] | | | + + + + + NOTIFICATION (10/16/2010 9:50 AM PST) + + + + + + | Component | Value | Ref Range | Performed | Pathologist | | | | | At | Signature | + + + + + + | TEST NAME | Tissue culture | | [facility] | | | | | | DEPARTMENT | | | | | | OF | | | | | | PATHOLOGY | | + + + + + + | SOURCE | right hip | | [facility] | | | | | | DEPARTMENT | | | | | | OF | | | | | | PATHOLOGY | | + + + + + + | RESULT | No PMN's, no squamous | | [facility] | | | CALLED | epithelial cells, no | | DEPARTMENT | | | | organisms seen, | | OF | | | | 1+staphylococcus aureus, | | PATHOLOGY | | | | Prelim ID. | | | | + + + + + + | CALLED TO | Celine Sandy on 10A on | | [facility] | | | | 10/17/10 @ 15:00 PW. | | DEPARTMENT | | | | [...] DEPARTMENT OF | [address] | [place] [address] | | | PATHOLOGY | [address] | | | + + + + + NOTIFICATION (10/16/2010 9:50 AM PST) + + + + + + | Component | Value | Ref Range | Performed | Pathologist | | | | | At | Signature | + + + + + + | TEST NAME | Tissue culture | | [facility] | | | | | | DEPARTMENT | | | | | | OF | | | | | | PATHOLOGY | | + + + + + + | SOURCE | Right hip | | [facility] | | | | | | DEPARTMENT | | | | | | OF | | | | | | PATHOLOGY | | + + + + + + | RESULT | Moderate PMN's, no | | [facility] | | | CALLED | squamous epithelial | | DEPARTMENT | | | | cells, no organisms, | | OF | | | | 1+staphylococcus aureus, | | PATHOLOGY | | | | Prelim ID. | | | | + + + + + + | CALLED TO | Celine SJuan Jose on 10A on | | [facility] | | | | 10/17/10 @ 15:00 PW. | | DEPARTMENT | | | | | | OF | | | | | | PATHOLOGY | | + + + + + + + + | Specimen | + + | | + + + + + + + | Performing | Address | City/State/Zipcode | Phone Number | | Organization | | | | + + + + + | [facility] | [address] | [place] [phone] | | | PATHOLOGY | [address] | | | + + + + + FUNGUS PRELIMINARY 1 (10/16/2010 9:50 AM PST) + + + + + + | Component | Value | Ref Range | Performed | Pathologist | | | | | At | Signature | + + + + + + | PRELIM | Fungus NOT detected at 1 | | [facility] | | | FUNGAL ISOL | week. | | [facility] | | | | | | LAB-MICRO | | + + + + + + + + | Specimen | + + | | + + + + + + + | Performing | Address | City/State/Zipcode | Phone Number | | Organization | | | | + + + + + | [facility] | [address] | [place] [address] | | | LAB-MICRO | | | | + + + + + FUNGAL SMEAR ONLY (10/16/2010 9:50 AM PST) + + + + + + | Component | Value | Ref Range | Performed | Pathologist | | | | | At | Signature | + + + + + + | SOURCE BODY | Site 5, right hip, | | [facility] | | | SITE | surgical, hold for | | [facility] | | | | propionibacterium | | LAB-MICRO | | + + + + + + | CALCOFLUOR | No fungal elements seen | | [facility] | | | WHITE STAIN | | | [facility] | | | ONLY | | | LAB-MICRO | | + + + + + + + + | Specimen | + + | | + + + + + + + | Performing | Address | City/State/Zipcode | Phone Number | | Organization | | | | + + + + + | [facility] | [address] | [place] [address] | | | LAB-MICRO | | | | + + + + + CULTURE, FUNGAL & SMEAR (10/16/2010 9:50 AM PST) + + + + + + | Component | Value | Ref Range | Performed | Pathologist | | | | | At | Signature | + + + + + + | SOURCE BODY | Site 5, right hip, | | [facility] | | | SITE | surgical, hold for | | [facility] | | | | propionibacterium | | LAB-MICRO | | + + + + + + | CULTURE | Fungus Culture | | [facility] | | | RESULT | Culture Source | | [facility] | | | | ....: Site 5, right | | LAB-MICRO | | | | hip, surgical, hold for | | | | | | | | | | | | | | | | | | propionibacterium | | | | | | Smear..............: | | | | | | No fungal elements | | | | | | seen Preliminary | | | | | | 1......: Fungus NOT | | | | | | detected at 1 week. | | | | | | [facility] Final Report: Fungus | | | | | | NOT isolated after 3 | | | | | | weeks. [facility] | | | | | | ([facility]) | | | | | | [facility] | | | | | | [address] | | [address] | | | | | | [place] [address] | | | | + + + + + + + + | Specimen | + + | | + + + + + + + | Performing | Address | City/State/Zipcode | Phone Number | | Organization | | | | + + + + + | [facility] | [address] | [place] [address] | | | LAB-MICRO | | | | + + + + + AFB PRELIM 1 (10/16/2010 9:50 AM PST) + + + + + + | Component | Value | Ref Range | Performed | Pathologist | | | | | At | Signature | + + + + + + | PRELIMINARY | Acid Fast Bacilli NOT | | [facility] | | | 1 | detected at 4 weeks. | | [facility] | | | | | | LAB-MICRO | | + + + + + + + + | Specimen | + + | | + + + + + + + | Performing | Address | City/State/Zipcode | Phone Number | | Organization | | | | + + + + + | [facility] | [address] | [place] [address] | | | LAB-MICRO | | | | + + + + + CULTURE, AFB (ALL SPECIMEN TYPES) (10/16/2010 9:50 AM PST) + + + + + + | Component | Value | Ref Range | Performed | Pathologist | | | | | At | Signature | + + + + + + | SOURCE BODY | Site 5, right hip, | | [facility] | | | SITE | surgical, hold for | | [facility] | | | | propionibacterium | | LAB-MICRO | | + + + + + + | CULTURE | Acid Fast Bacilli | | [facility] | | | RESULT | Culture | | [facility] | | | | Source.............: | | LAB-MICRO | | | | Site 5, right hip, | | | | | | surgical, hold for | | | | | | | | | | | | | | | | | | propionibacterium | | | | | | RLB [...] at 6 weeks. | | | | | | [facility]LB ([facility] | | | | | [facility]) | | | | | | [facility] | | | | | | [address] | | | | | | [place] [address] | | | | + + + + + + + + | Specimen | + + | | + + + + + + + | Performing | Address | City/State/Zipcode | Phone Number | | Organization | | | | + + + + + | [facility] | [address] | [place] [address] | | | LAB-MICRO | | | | + + + + + ACID FAST BACILLI, SMEAR ONLY (10/16/2010 9:50 AM PST) + + + + + + | Component | Value | Ref Range | Performed | Pathologist | | | | | At | Signature | + + + + + + | SOURCE BODY | Site 5, right hip, | | [facility] | | | SITE | surgical, hold for | | [facility] | | | | propionibacterium | | LAB-MICRO | | + + + + + + | FLUOROCHROM | AFB NOT detected. | | [facility] | | | E STAIN | | | [facility] | | | | | | LAB-MICRO | | + + + + + + + + | Specimen | + + | | + + + + + + + | Performing | Address | City/State/Zipcode | Phone Number | | Organization | | | | + + + + + | [facility] | [address] | [place] [address] | | | LAB-MICRO | | | | + + + + + CULTURE, TISSUE (10/16/2010 9:50 AM PST) + + + + + + | Component | Value | Ref Range | Performed | Pathologist | | | | | At | Signature | + + + + + + | SOURCE BODY | Site 5, right hip, | | [facility] | | | SITE | surgical, hold for | | [facility] | | | | propionibacterium | | LAB-MICRO | | + + + + + + | CULTURE | Tissue Culture | | [facility] | | | RESULT | | | [facility] | | | | Source...............: | | LAB-MICRO | | | | Site 5, right hip, | | | | | | surgical, hold for | | | | | | | | | | | | | | | | | | propionibacterium | | | | | | RLB Gram | | | | | | Stain...........: No | | | | | | Squamous epithelial | | | | | | cells | | | | | | | | | | | | Rare PMN's | | | | | | | | | | | | No organisms | | | | | | seen. Culture: | | | | | | 1+ Staphylococcus | | | | | | aureus | | | | | | | | | | | | Final ID | | | | | | Refer to right hip | | | | | | fluid collected | | | | | | 10-16-2010 at 08:40 for | | | | | | | | | | | | susceptibilities. | | | | | | No anaerobes isolated | | | | | | No | | | | | | Propionibacterium | | | | | | isolated. Final | | | | | | Report Resulted: | | | | | | 10/26/10 | | | | | | [facility] ([facility]) | | | | | | [facility] | | | | | | [facility] | | | | | | [address] [facility] | | | | | | [place], | | | | | | [place] [address] | | | | + + + + + + + + | Specimen | + + | | + + + + + + + | Performing | Address | City/State/Zipcode | Phone Number | | Organization | | | | + + + + + | [facility] | [address] | [place] [address] | | | LAB-MICRO | | | | + + + + + CULTURE, AFB (ALL SPECIMEN TYPES) (10/16/2010 9:50 AM PST) + + + + + + | Component | Value | Ref Range | Performed | Pathologist | | | | | At | Signature | + + + + + + | SOURCE BODY | Site 4, right hip, | | [facility] | | | SITE | surgical, hold for | | [facility] | | | | propionibacterium | | LAB-MICRO | | + + + + + + | CULTURE | Acid Fast Bacilli | | [facility] | | | RESULT | Culture | | [facility] | | | | Source.............: | | LAB-MICRO | | | | Site 4, right hip, | | | | | | surgical, hold for | | | | | | | | | | | | | | | | | | propionibacterium | | | | | | RLB [...] at 6 weeks. | | | | | | RLB ([facility] | | | | | | Way Lab) | | | | | | [facility] | | | | | | [address] | [address] | | | | | | [place] [address] | | | | + + + + + + + + | Specimen | + + | | + + + + + + + | Performing | Address | City/State/Zipcode | Phone Number | | Organization | | | | + + + + + | [facility] | [address] | [place] [address] | | | LAB-MICRO | | | | + + + + + AFB PRELIM 1 (10/16/2010 9:50 AM PST) + + + + + + | Component | Value | Ref Range | Performed | Pathologist | | | | | At | Signature | + + + + + + | PRELIMINARY | Acid Fast Bacilli NOT | | [facility] | | | 1 | detected at 4 weeks. | | [facility] | | | | | | LAB-MICRO | | + + + + + + + + | Specimen | + + | | + + + + + + + | Performing | Address | City/State/Zipcode | Phone Number | | Organization | | | | + + + + + | [facility] | [address] | [place] [address] | | | LAB-MICRO | | | | + + + + + ACID FAST BACILLI, SMEAR ONLY (10/16/2010 9:50 AM PST) + + + + + + | Component | Value | Ref Range | Performed | Pathologist | | | | | At | Signature | + + + + + + | SOURCE BODY | Site 4, right hip, | | [facility] | | | SITE | surgical, hold for | | [facility] | | | | propionibacterium | | LAB-MICRO | | + + + + + + | FLUOROCHROM | AFB NOT detected. | | [facility] | | | E STAIN | | | [facility] | | | | | | LAB-MICRO | | + + + + + + + + | Specimen | + + | | + + + + + + + | Performing | Address | City/State/Zipcode | Phone Number | | Organization | | | | + + + + + | [facility] | [address] | [place] [address] | | | LAB-MICRO | | | | + + + + + CULTURE, FUNGAL & SMEAR (10/16/2010 9:50 AM PST) + + + + + + | Component | Value | Ref Range | Performed | Pathologist | | | | | At | Signature | + + + + + + | SOURCE BODY | Site 4, right hip, | | [facility] | | | SITE | surgical, hold for | | [facility] | | | | propionibacterium | | LAB-MICRO | | + + + + + + | CULTURE | Fungus Culture | | [facility] | | | RESULT | Culture Source | | [facility] | | | | ....: Site 4, right | | LAB-MICRO | | | | hip, surgical, hold for | | | | | | | | | | | | | | | | | | propionibacterium | | | | | | Smear..............: | | | | | | No fungal elements | | | | | | seen Preliminary | | | | | | 1......: Fungus NOT | | | | | | detected at 1 week. | | | | | | RLB Final Report: Fungus | | | | | | NOT isolated after 3 | | | | | | weeks. RLB | | | | | | ([facility]) | | | | | | [facility] | | | | | | [address] | | [address] | | | | | | [place] [address] | | | | + + + + + + + + | Specimen | + + | | + + + + + + + | Performing | Address | City/State/Zipcode | Phone Number | | Organization | | | | + + + + + | [facility] | [address] | [place] [address] | | | LAB-MICRO | | | | + + + + + FUNGUS PRELIMINARY 1 (10/16/2010 9:50 AM PST) + + + + + + | Component | Value | Ref Range | Performed | Pathologist | | | | | At | Signature | + + + + + + | PRELIM | Fungus NOT detected at 1 | | [facility] | | | FUNGAL ISOL | week. | | [facility] | | | | | | LAB-MICRO | | + + + + + + + + | Specimen | + + | | + + + + + + + | Performing | Address | City/State/Zipcode | Phone Number | | Organization | | | | + + + + + | [facility] | [address] | [place] [address] | | | LAB-MICRO | | | | + + + + + FUNGAL SMEAR ONLY (10/16/2010 9:50 AM PST) + + + + + + | Component | Value | Ref Range | Performed | Pathologist | | | | | At | Signature | + + + + + + | SOURCE BODY | Site 4, right hip, | | [facility] | | | SITE | surgical, hold for | | [facility] | | | | propionibacterium | | LAB-MICRO | | + + + + + + | CALCOFLUOR | No fungal elements seen | | [facility] | | | WHITE STAIN | | | [facility] | | | ONLY | | | LAB-MICRO | | + + + + + + + + | Specimen | + + | | + + + + + + + | Performing | Address | City/State/Zipcode | Phone Number | | Organization | | | | + + + + + | [facility] | [address] | [place] [address] | | | LAB-MICRO | | | | + + + + + CULTURE, TISSUE (10/16/2010 9:50 AM PST) + + + + + + | Component | Value | Ref Range | Performed | Pathologist | | | | | At | Signature | + + + + + + | SOURCE BODY | Site 4, right hip, | | [facility] | | | SITE | surgical, hold for | | [facility] | | | | propionibacterium | | LAB-MICRO | | + + + + + + | CULTURE | Tissue Culture | | [facility] | | | RESULT | | | [facility] | | | | Source...............: | | LAB-MICRO | | | | Site 4, right hip, | | | | | | surgical, hold for | | | | | | | | | | | | | | | | | | propionibacterium | | | | | | RLB Gram | | | | | | Stain...........: No | | | | | | PMN's | | | | | | | | | | | | No Squamous epithelial | | | | | | cells | | | | | | | | | | | | No organisms seen. | | | | | | Culture: 1+ | | | | | | Staphylococcus aureus | | | | | | | | | | | | Final | | | | | | ID Refer to | | | | | | right hip fluid | | | | | | collected 10-16-2010 at | | | | | | 08:40 for | | | | | | susceptibilities. | | | | | | No anaerobes isolated | | | | | | No | | | | | | Propionibacterium | | | | | | isolated. Final | | | | | | Report Resulted: | | | | | | 10/26/10 | | | | | | RLB ([facility]) | | | | | | [facility] | | | | | | [facility] | | | | | | [address] | | | | | | [place], | | | | | | [place] [address] | | | | + + + + + + + + | Specimen | + + | | + + + + + + + | Performing | Address | City/State/Zipcode | Phone Number | | Organization | | | | + + + + + | [facility] | [address] | [place] [address] | | | LAB-MICRO | | | | + + + + + AFB PRELIM 1 (10/16/2010 9:50 AM PST) + + + + + + | Component | Value | Ref Range | Performed | Pathologist | | | | | At | Signature | + + + + + + | PRELIMINARY | Acid Fast Bacilli NOT | | [facility] | | | 1 | detected at 4 weeks. | | [facility] | | | | | | LAB-MICRO | | + + + + + + + + | Specimen | + + | | + + + + + + + | Performing | Address | City/State/Zipcode | Phone Number | | Organization | | | | + + + + + | [facility] | [address] | [place] [address] | | | LAB-MICRO | | | | + + + + + ACID FAST BACILLI, SMEAR ONLY (10/16/2010 9:50 AM PST) + + + + + + | Component | Value | Ref Range | Performed | Pathologist | | | | | At | Signature | + + + + + + | SOURCE BODY | Site 3, right hip, | | [facility] | | | SITE | surgical, hold for | | [facility] | | | | propionibacterium | | LAB-MICRO | | + + + + + + | FLUOROCHROM | AFB NOT detected. | | [facility] | | | E STAIN | | | [facility] | | | | | | LAB-MICRO | | + + + + + + + + | Specimen | + + | | + + + + + + + | Performing | Address | City/State/Zipcode | Phone Number | | Organization | | | | + + + + + | [facility] | [address] | [place] [address] | | | LAB-MICRO | | | | + + + + + CULTURE, AFB (ALL SPECIMEN TYPES) (10/16/2010 9:50 AM PST) + + + + + + | Component | Value | Ref Range | Performed | Pathologist | | | | | At | Signature | + + + + + + | SOURCE BODY | Site 3, right hip, | | [facility] | | | SITE | surgical, hold for | | [facility]ION[facility] | | | | propionibacterium | | LAB-MICRO | | + + + + + + | CULTURE | Acid Fast Bacilli | | [facility] | | | RESULT | Culture | | [facility] | | | | Source.............: | | LAB-MICRO | | | | Site 3, right hip, | | | | | | surgical, hold for | | | | | | | | | | | | | | | | | | propionibacterium | | | | | | RLB [...] at 6 weeks. | | | | | | RLB ([facility] | | | | | | Way Lab) | | | | | | [facility] | | | | | | [address] | [address] | | | | | | [place] [address] | | | | + + + + + + + + | Specimen | + + | | + + + + + + + | Performing | Address | City/State/Zipcode | Phone Number | | Organization | | | | + + + + + | [facility] | [address] | [place] [address] | | | LAB-MICRO | | | | + + + + + FUNGUS PRELIMINARY 1 (10/16/2010 9:50 AM PST) + + + + + + | Component | Value | Ref Range | Performed | Pathologist | | | | | At | Signature | + + + + + + | PRELIM | Fungus NOT detected at 1 | | [facility] | | | FUNGAL ISOL | week. | | [facility] | | | | | | LAB-MICRO | | + + + + + + + + | Specimen | + + | | + + + + + + + | Performing | Address | City/State/Zipcode | Phone Number | | Organization | | | | + + + + + | [facility] | [address] | [place] [address] | | | LAB-MICRO | | | | + + + + + FUNGAL SMEAR ONLY (10/16/2010 9:50 AM PST) + + + + + + | Component | Value | Ref Range | Performed | Pathologist | | | | | At | Signature | + + + + + + | SOURCE BODY | Site 3, right hip, | | [facility] | | | SITE | surgical, hold for | | [facility]ION[facility] | | | | propionibacterium | | LAB-MICRO | | + + + + + + | CALCOFLUOR | No fungal elements seen | | [facility] | | | WHITE STAIN | | | [facility] | | | ONLY | | | LAB-MICRO | | + + + + + + + + | Specimen | + + | | + + + + + + + | Performing | Address | City/State/Zipcode | Phone Number | | Organization | | | | + + + + + | [facility] | [address] | [place] [address] | | | LAB-MICRO | | | | + + + + + CULTURE, FUNGAL & SMEAR (10/16/2010 9:50 AM PST) + + + + + + | Component | Value | Ref Range | Performed | Pathologist | | | | | At | Signature | + + + + + + | SOURCE BODY | Site 3, right hip, | | [facility] | | | SITE | surgical, hold for | | REGION[facility] | | | | propionibacterium | | LAB-MICRO | | + + + + + + | CULTURE | Fungus Culture | | [facility] | | | RESULT | Culture Source | | [facility] | | | | ....: Site 3, right | | LAB-MICRO | | | | hip, surgical, hold for | | | | | | | | | | | | | | | | | | propionibacterium | | | | | | Smear..............: | | | | | | No fungal elements | | | | | | seen Preliminary | | | | | | 1......: Fungus NOT | | | | | | detected at 1 week. | | | | | | RLB Final Report: Fungus | | | | | | NOT isolated after 3 | | | | | | weeks. R[facility] | | | | | | ([facility]) | | | | | | [facility] | | | | | | [address] | | [address] | | | | | | [place] [address] | | | | + + + + + + + + | Specimen | + + | | + + + + + + + | Performing | Address | City/State/Zipcode | Phone Number | | Organization | | | | + + + + + | [facility] | [address] | [place] [address] | | | LAB-MICRO | | | | + + + + + CULTURE, TISSUE (10/16/2010 9:50 AM PST) + + + + + + | Component | Value | Ref Range | Performed | Pathologist | | | | | At | Signature | + + + + + + | SOURCE BODY | Site 3, right hip, | | [facility] | | | SITE | surgical, hold for | | [facility]IONAL | | | | propionibacterium | | LAB-MICRO | | + + + + + + | CULTURE | Tissue Culture | | [facility] | | | RESULT | | | [facility] | | | | Source...............: | | LAB-MICRO | | | | Site 3, right hip, | | | | | | surgical, hold for | | | | | | | | | | | | | | | | | | propionibacterium | | | | | | RLB Gram | | | | | | Stain...........: No | | | | | | Squamous epithelial | | | | | | cells | | | | | | | | | | | | No PMN's | | | | | | | | | | | | No organisms seen. | | | | | | Culture: | | | | | | Rare Staphylococcus | | | | | | aureus | | | | | | | | | | | | Final ID | | | | | | Refer to right hip | | | | | | fluid culture collected | | | | | | 10-16-2010 at 08:40 for | | | | | | | | | | | | susceptibilities. | | | | | | No anaerobes isolated | | | | | | No | | | | | | Propionibacterium | | | | | | isolated. Final | | | | | | Report Resulted: | | | | | | 10/26/10 | | | | | | RLB ([facility]) | | | | | | [facility] | [facility] | | | [facility] | | [address] | | | | | | [place], | | | | | | [place] [address] | | | | + + + + + + + + | Specimen | + + | | + + + + + + + | Performing | Address | City/State/Zipcode | Phone Number | | Organization | | | | + + + + + | [facility] | [address] | [place] [address] | | | LAB-MICRO | | | | + + + + + AFB PRELIM 1 (10/16/2010 9:50 AM PST) + + + + + + | Component | Value | Ref Range | Performed | Pathologist | | | | | At | Signature | + + + + + + | PRELIMINARY | Acid Fast Bacilli NOT | | [facility] | | | 1 | detected at 4 weeks. | | [facility] | | | | | | LAB-MICRO | | + + + + + + + + | Specimen | + + | | + + + + + + + | Performing | Address | City/State/Zipcode | Phone Number | | Organization | | | | + + + + + | [facility] | [address] | [place] [address] | | | LAB-MICRO | | | | + + + + + ACID FAST BACILLI, SMEAR ONLY (10/16/2010 9:50 AM PST) + + + + + + | Component | Value | Ref Range | Performed | Pathologist | | | | | At | Signature | + + + + + + | SOURCE BODY | Site 2, right hip, | | [facility] | | | SITE | surgical, hold for | | [facility] | | | | propionibacterium | | LAB-MICRO | | + + + + + + | FLUOROCHROM | AFB NOT detected. | | [facility] | | | E STAIN | | | [facility] | | | | | | LAB-MICRO | | + + + + + + + + | Specimen | + + | | + + + + + + + | Performing | Address | City/State/Zipcode | Phone Number | | Organization | | | | + + + + + | [facility] | [address] | [place] [address] | | | LAB-MICRO | | | | + + + + + CULTURE, AFB (ALL SPECIMEN TYPES) (10/16/2010 9:50 AM PST) + + + + + + | Component | Value | Ref Range | Performed | Pathologist | | | | | At | Signature | + + + + + + | SOURCE BODY | Site 2, right hip, | | [facility] | | | SITE | surgical, hold for | | REGIONAL | | | | propionibacterium | | LAB-MICRO | | + + + + + + | CULTURE | Acid Fast Bacilli | | [facility] | | | RESULT | Culture | | [facility] | | | | Source.............: | | LAB-MICRO | | | | Site 2, right hip, | | | | | | surgical, hold for | | | | | | | | | | | | | | | | | | propionibacterium | | | | | | RLB [...] at 6 weeks. | | | | | | R[facility] ([facility] | | | | | | [facility] Lab) | | | | | | [facility] | | | | | | [address] | [address] | | | | | | [place] [address] | | | | + + + + + + + + | Specimen | + + | | + + + + + + + | Performing | Address | City/State/Zipcode | Phone Number | | Organization | | | | + + + + + | [facility] | [address] | [place] [address] | | | LAB-MICRO | | | | + + + + + FUNGUS PRELIMINARY 1 (10/16/2010 9:50 AM PST) + + + + + + | Component | Value | Ref Range | Performed | Pathologist | | | | | At | Signature | + + + + + + | PRELIM | Fungus NOT detected at 1 | | [facility] | | | FUNGAL ISOL | week. | | [facility] | | | | | | LAB-MICRO | | + + + + + + + + | Specimen | + + | | + + + + + + + | Performing | Address | City/State/Zipcode | Phone Number | | Organization | | | | + + + + + | [facility] | [address] | [place] [address] | | | LAB-MICRO | | | | + + + + + CULTURE, FUNGAL & SMEAR (10/16/2010 9:50 AM PST) + + + + + + | Component | Value | Ref Range | Performed | Pathologist | | | | | At | Signature | + + + + + + | SOURCE BODY | Site 2, right hip, | | [facility] | | | SITE | surgical, hold for | | REGIONAL | | | | propionibacterium | | LAB-MICRO | | + + + + + + | CULTURE | Fungus Culture | | [facility] | | | RESULT | Culture Source | | [facility] | | | | ....: Site 2, right | | LAB-MICRO | | | | hip, surgical, hold for | | | | | | | | | | | | | | | | | | propionibacterium | | | | | | Smear..............: | | | | | | No fungal elements | | | | | | seen Preliminary | | | | | | 1......: Fungus NOT | | | | | | detected at 1 week. | | | | | | RLB Final Report: Fungus | | | | | | NOT isolated after 3 | | | | | | weeks. [facility] | | | | | | ([facility]) | | | | | | [facility] | | | | | | [address] | [address] | | | | | | [place] [address] | | | | + + + + + + + + | Specimen | + + | | + + + + + + + | Performing | Address | City/State/Zipcode | Phone Number | | Organization | | | | + + + + + | [facility] | [address] | [place] [address] | | | LAB-MICRO | | | | + + + + + FUNGAL SMEAR ONLY (10/16/2010 9:50 AM PST) + + + + + + | Component | Value | Ref Range | Performed | Pathologist | | | | | At | Signature | + + + + + + | SOURCE BODY | Site 2, right hip, | | [facility] | | | SITE | surgical, hold for | | REGIONAL | | | | propionibacterium | | LAB-MICRO | | + + + + + + | CALCOFLUOR | No fungal elements seen | | [facility] | | | WHITE STAIN | | | REGIONAL | | | ONLY | | | LAB-MICRO | | + + + + + + + + | Specimen | + + | | + + + + + + + | Performing | Address | City/State/Zipcode | Phone Number | | Organization | | | | + + + + + | [facility] | [address] | [place] [address] | | | LAB-MICRO | | | | + + + + + CULTURE, TISSUE (10/16/2010 9:50 AM PST) + + + + + + | Component | Value | Ref Range | Performed | Pathologist | | | | | At | Signature | + + + + + + | SOURCE BODY | Site 2, right hip, | | [facility] | | | SITE | surgical, hold for | | REGIONAL | | | | propionibacterium | | LAB-MICRO | | + + + + + + | CULTURE | Tissue Culture | | [facility] | | | RESULT | | | [facility] | | | | Source...............: | | LAB-MICRO | | | | Site 2, right hip, | | | | | | surgical, hold for | | | | | | | | | | | | | | | | | | propionibacterium | | | | | | RLB Gram | | | | | | Stain...........: | | | | | | Moderate PMN's | | | | | | | | | | | | No Squamous | | | | | | epithelial cells | | | | | | | | | | | | No organisms | | | | | | seen. Culture: | | | | | | 1+ Staphylococcus | | | | | | aureus | | | | | | | | | | | | Final ID | | | | | | Refer to right hip | | | | | | fluid collected | | | | | | 10-16-2010 at 08:40 for | | | | | | | | | | | | susceptibilities. | | | | | | No anaerobes isolated | | | | | | No | | | | | | Propionibacterium | | | | | | isolated. Final | | | | | | Report Resulted: | | | | | | 10/26/10 | | | | | | R[facility] ([facility]) | | | | | | [facility] | | | | [facility] | | | | | | [address] | | | | | | [place], | | | | | | [place] [address] | | | | + + + + + + + + | Specimen | + + | | + + + + + + + | Performing | Address | City/State/Zipcode | Phone Number | | Organization | | | | + + + + + | [facility] | [address] | [place] [address] | | | LAB-MICRO | | | | + + + + + AFB PRELIM 1 (10/16/2010 9:50 AM PST) + + + + + + | Component | Value | Ref Range | Performed | Pathologist | | | | | At | Signature | + + + + + + | PRELIMINARY | Acid Fast Bacilli NOT | | [facility] | | | 1 | detected at 4 weeks. | | [facility] | | | | | | LAB-MICRO | | + + + + + + + + | Specimen | + + | | + + + + + + + | Performing | Address | City/State/Zipcode | Phone Number | | Organization | | | | + + + + + | [facility] | [address] | [place] [address] | | | [facility] | | | | + + + + + ACID FAST BACILLI, SMEAR ONLY (10/16/2010 9:50 AM PST) + + + + + + | Component | Value | Ref Range | Performed | Pathologist | | | | | At | [facility] | + + + + + + | SOURCE BODY | Site 1, right hip, | | [facility] | | | SITE | surgical, hold for | | [facility] | | | | propionibacterium | | [facility] | | + + + + + + | FLUOROCHROM | AFB NOT detected. | | [facility] | | | E STAIN | | | [facility] | | | | | | [facility] | | + + + + + + + + | Specimen | + + | | + + + + + + + | Performing | Address | City/State/Zipcode | Phone Number | | Organization | | | | + + + + + | [facility] | [address] | [place] [address] | | | [facility]-MI[facility] | | | | + + + + + CULTURE, AFB (ALL SPECIMEN TYPES) (10/16/2010 9:50 AM PST) + + + + + + | Component | Value | Ref Range | Performed | Pathologist | | | | | At | [facility] | + + + + + + | SOURCE BODY | Site 1, right hip, | | [facility] | | | SITE | surgical, hold for | | [facility] | | | | propionibacterium | | LAB-MI[facility] | | + + + + + + | CULTURE | Acid Fast Bacilli | | [facility] | | | RESULT | Culture | | [facility] | | | | Source.............: | | LAB-[facility] | | | | Site 1, right hip, | | | | | | surgical, hold for | | | | | | | | | | | | | | | | | | propionibacterium | | | | | | RLB [...] at 6 weeks. | | | | | | [facility] ([facility] | | | | | | Way Lab) | | | | | | [facility] | | | | | | [address] | | [address] | | | | | | [place] [address] | | | | + + + + + + + + | Specimen | + + | | + + + + + + + | Performing | Address | City/State/Zipcode | Phone Number | | Organization | | | | + + + + + | [facility] | [address] | [place] [address] | | | [facility] | | | | + + + + + FUNGUS PRELIMINARY 1 (10/16/2010 9:50 AM PST) + + + + + + | Component | Value | Ref Range | Performed | Pathologist | | | | | At | [facility] | + + + + + + | PRELIM | Fungus NOT detected at 1 | | [facility] | | | FUNGAL ISOL | week. | | [facility] | | | | | | [facility] | | + + + + + + + + | Specimen | + + | | + + + + + + + | Performing | Address | City/State/Zipcode | Phone Number | | Organization | | | | + + + + + | [facility] | [address] | [place] [address] | | | LAB-MICRO | | | | + + + + + CULTURE, FUNGAL & SMEAR (10/16/2010 9:50 AM PST) + + + + + + | Component | Value | Ref Range | Performed | Pathologist | | | | | At | Signature | + + + + + + | SOURCE BODY | Site 1, right hip, | | [facility] | | | SITE | surgical, hold for | | [facility] | | | | propionibacterium | | LAB-MICRO | | + + + + + + | CULTURE | Fungus Culture | | [facility] | | | RESULT | Culture Source | | [facility] | | | | ....: Site 1, right | | LAB-MICRO | | | | hip, surgical, hold for | | | | | | | | | | | | | | | | | | propionibacterium | | | | | | Smear..............: | | | | | | No fungal elements | | | | | | seen Preliminary | | | | | | 1......: Fungus NOT | | | | | | detected at 1 week. | | | | | | [facility] Final Report: Fungus | | | | | | NOT isolated after 3 | | | | | | weeks. [facility] | | | | | | ([facility] [address] [facility]) | | | | | | [facility] | | | | | | [address] | | | | | | [address] | | | | | | [place] [address] | | | | + + + + + + + + | Specimen | + + | | + + + + + + + | Performing | Address | City/State/Zipcode | Phone Number | | Organization | | | | + + + + + | [facility] | [address] | [place] [address] | | | LAB-MICRO | | | | + + + + + FUNGAL SMEAR ONLY (10/16/2010 9:50 AM PST) + + + + + + | Component | Value | Ref Range | Performed | Pathologist | | | | | At | Signature | + + + + + + | SOURCE BODY | Site 1, right hip, | | [facility] | | | SITE | surgical, hold for | | [facility] | | | | propionibacterium | | LAB-MICRO | | + + + + + + | CALCOFLUOR | No fungal elements seen | | [facility] | | | WHITE STAIN | | | [facility] | | | ONLY | | | LAB-MICRO | | + + + + + + + + | Specimen | + + | | + + + + + + + | Performing | Address | City/State/Zipcode | Phone Number | | Organization | | | | + + + + + | [facility] | [address] | [place] [address] | | | LAB-MICRO | | | | + + + + + CULTURE, TISSUE (10/16/2010 9:50 AM PST) + + + + + + | Component | Value | Ref Range | Performed | Pathologist | | | | | At | Signature | + + + + + + | SOURCE BODY | Site 1, right hip, | | [facility] | | | SITE | surgical, hold for | | [facility] | | | | propionibacterium | | LAB-MICRO | | + + + + + + | CULTURE | Tissue Culture | | [facility] | | | RESULT | | | [facility] | | | | Source...............: | | LAB-MICRO | | | | Site 1, right hip, | | | | | | surgical, hold for | | | | | | | | | | | | | | | | | | propionibacterium | | | | | | [facility] Gram | | | | | | Stain...........: | | | | | | Moderate PMN's | | | | | | | | | | | | No Squamous | | | | | | epithelial cells | | | | | | | | | | | | No organisms | | | | | | seen. Culture: | | | | | | 1+ Staphylococcus | | | | | | aureus | | | | | | | | | | | | Final ID | | | | | | Refer to right hip | | | | | | fluid collected | | | | | | 10-16-2010 at 08:40 for | | | | | | | | | | | | susceptibilities. | | | | | | No anaerobes isolated | | | | | | No | | | | | | Propionibacterium | | | | | | isolated. Final | | | | | | Report Resulted: | | | | | | 10/26/10 | | | | | | [facility] ([facility]) | | | | | | [facility] | | | | | | [facility] | | | | | | [address] | | | | | | [place], | | | | | | [place] [address] | | | | + + + + + + + + | Specimen | + + | | + + + + + + + | Performing | Address | City/State/Zipcode | Phone Number | | Organization | | | | + + + + + | [facility] | [address] | [place] [address] | | | LAB-MICRO | | | | + + + + + CULTURE, JOINT FLUID (SYNOVIAL) (10/16/2010 8:40 AM PST) + + + + + + | Component | Value | Ref Range | Performed | Pathologist | | | | | At | Signature | + + + + + + | SOURCE BODY | Site 6 and 7, right hip, | | [facility] | | | SITE | surgical | | [facility] | | | | | | LAB-MICRO | | + + + + + + | CULTURE | Joint Fluid | | [facility] | | | RESULT | Culture | | [facility] | | | | Source...............: | | LAB-MICRO | | | | Site 6 and 7, right hip, | | | | | | surgical [facility] Gram | | | | | | Stain...........: No | | | | | | Squamous epithelial | | | | | | cells | | | | | | | | | | | | Many PMN's | | | | | | | | | | | | Many Gram | | | | | | positive cocci in | | | | | | clusters Culture: | | | | | | Staphylococcus | | | | | | aureus | | | | | | | | | | | | Final ID | | | | | | Growth in Aerobic | | | | | | Bottle Growth in | | | | | | Anaerobic Bottle | | | | | | Unable to continue | | | | | | culture for anaerobes | | | | | | due to overgrowth | | | | | | of other organisms. | | | | | | Unable to continue | | | | | | culture for | | | | | | Propionibacterium due | | | | | | to growth of other | | | | | | organisms. | | | | | | S. | | | | | | aureus Cefazolin | | | | | | S | | | | | | Ciprofloxacin | | | | | | S Clindamycin | | | | | | S Erythromycin | | | | | | S Oxacillin | | | | | | S | | | | | | Tetracycline | | | | | | S Trimeth/Sulfa | | | | | | S Vancomycin | | | | | | S Penicillin | | | | | | R | | | | | | Rifampin | | | | | | S Final Report | | | | + + + + + + + + | Specimen | + + | | + + + + + | Narrative | Performed At | + + + | JNT result phd to Mona eKvin @0022. read back | [facility] | | | [facility] | | | [facility]-MI[facility] | + + + + + + + + | Performing | Address | City/State/Zipcode | Phone Number | | Organization | | | | + + + + + | [facility] | [address] | [place] [address] | | | LAB-MICRO | | | | + + + + + BASIC METABOLIC SET (NA, K, CL, TCO2, BUN, CR, GLU, CA) (10/16/2010 7:00 AM PST) + + + + + + | Component | Value | Ref Range | Performed | Pathologist | | | | | At | Signature | + + + + + + | GLUCOSE, | 101 (H) | 60 - 99 mg/dL | [facility] [...] + + + + | CREATININE | 0.68 | 0.60 - 1.10 | [facility] | | | PLASMA | | mg/dL | DEPARTMENT | | | (LAB) | | | OF | | | | | | PATHOLOGY | | + + + + + + | SODIUM, | 136 | 134 - 143 | [facility] | | | PLASMA | | mmol/L | DEPARTMENT | | | (LAB) | | | OF | | | | | | PATHOLOGY | | + + + + + + | POTASSIUM, | 3.8 | 3.4 - 5.0 | [facility] | | | PLASMA | | mmol/L | DEPARTMENT | | | (LAB) | | | OF | | | | | | PATHOLOGY | | + + + + + + | CHLORIDE, | 99 | 97 - 108 mmol/L | [facility] | | | PLASMA | | | DEPARTMENT | | | (LAB) | | | OF | | | | | | PATHOLOGY | | + + + + + + | TOTAL CO2, | 31 (H)Comment: New | 22 - 29 mmol/L | [facility] | | | PLASMA | Total CO2 reference | | DEPARTMENT | | | (LAB) | range effective | | OF | | | | 08/22/10. | | PATHOLOGY | | + + + + + + | CALCIUM, | 8.9 | 8.6 - 10.2 | [facility] | | | PLASMA | | mg/dL | DEPARTMENT | | | (LAB) | | | OF | | | | | | PATHOLOGY | | + + + + + + | ANION GAP | 6 | 4 - 11 mmol/L | [facility] [...] + + | [facility] DEPARTMENT | [address] | [place] [address] | | | PATHOLOGY | [address] | | | + + + + + BASIC METABOLIC SET (NA, K, CL, TCO2, BUN, CR, GLU, CA) (10/16/2010 3:06 AM PST) + + + + + + | Component | Value | Ref Range | Performed | Pathologist | | | | | At | Signature | + + + + + + | GLUCOSE, | Not Recd | 60 - 99 mg/dL | [facility] | | | PLASMA | | | DEPARTMENT | | | (LAB) | | | OF | | | | | | PATHOLOGY | | + + + + + + | BUN, PLASMA | Not Recd | 6 - 20 mg/dL | [facility] | | | (LAB) | | | DEPARTMENT | | | | | | OF | | | | | | PATHOLOGY | | + + + + + + | CREATININE | Not Recd | 0.60 - 1.10 | [facility] | | | PLASMA | | mg/dL | DEPARTMENT | | | (LAB) | | | OF | | | | | | PATHOLOGY | | + + + + + + | SODIUM, | Not Recd | 134 - 143 | [facility] | | | PLASMA | | mmol/L | DEPARTMENT | | | (LAB) | | | OF | | | | | | PATHOLOGY | | + + + + + + | POTASSIUM, | Not Recd | 3.4 - 5.0 | [facility] | | | PLASMA | | mmol/L | DEPARTMENT | | | (LAB) | | | OF | | | | | | PATHOLOGY | | + + + + + + | CHLORIDE, | Not Recd | 97 - 108 mmol/L | [facility] | | | PLASMA | | | DEPARTMENT | | | (LAB) | | | OF | | | | | | PATHOLOGY | | + + + + + + | TOTAL CO2, | Not Recd | 22 - 29 mmol/L | [facility] | | | PLASMA | | | DEPARTMENT | | | (LAB) | | | OF | | | | | | PATHOLOGY | | + + + + + + | CALCIUM, | Not Recd | 8.6 - 10.2 | [facility] | [...] + + + | [facility] | [address] | [place] [address] | | | PATHOLOGY | [address] | | | + + + + + FREE T4, SERUM (10/16/2010 3:06 AM PST) + +-------+ + + + | Component | Value | Ref Range | Performed | Pathologist | | | | | At | Signature | + +-------+ + + + | FREE T4, | 0.7 | 0.6 - 1.2 ng/dL | [facility] | | | SERUM | | | [facility]IONAL | | | | | | LABORATORY | | + +-------+ + + + + + | Specimen | + + | Blood - Blood | + + + + + | Narrative | Performed At | + + + | Free T4 Reference Range change effective 02/15/09 | [facility] | | [facility] ([facility] | REGIONAL | | [place] [address] | LABORATORY | | [place] [address] | | + + + + + + + + | Performing | Address | City/State/Zipcode | Phone Number | | Organization | | | | + + + + + | [facility] | [address] | [place] [address] | | | LABORATORY | | | | + + + + + TSH (10/16/2010 3:06 AM PST) + +-------+ + + + | Component | Value | Ref Range | Performed | Pathologist | | | | | At | Signature | + +-------+ + + + | TSH | 3.15 | 0.34 - 5.60 | [facility] | | | | | uIU/ml | REGIONAL | | | | | | LABORATORY | | + +-------+ + + + + + | Specimen | + + | Blood - Blood | + + + + + | Narrative | Performed At | + + + | [facility] ([address] [facility]) | [facility] | | [facility] [place] [address] | REGIONAL | | [place] [address] | LABORATORY | + + + + + + + + | Performing | Address | City/State/Zipcode | Phone Number | | Organization | | | | + + + + + | [facility] | [address] | [place] [address] | | | LABORATORY | | | | + + + + + RESP CARE THERAPY (10/16/2010 12:36 AM PST) + + + + + + | Component | Value | Ref Range | Performed | Pathologist | | | | | At | Signature | + + + + + + | RESPIRATORY | Inhaled medication | | [facility] | | | CARE | treatment was not given. | | RESPIRATORY | | | | The patient was | | THERAPY | | | | assessed.Therapy was not | | | | | | indicated. | | | | | | Electronically Signed | | | | | | by: Marilou Reeder RCP | | | | + + + + + + + + | Specimen | + + | | + + + + + + + | Performing | Address | City/State/Zipcode | Phone Number | | Organization | | | | + + + + + | [facility] | [address] | [place], [place] | | | THERAPY | [address] | [address] | | + + + + + OPERATION RECORD (10/16/2010 12:00 AM PST) + + + | Narrative | Performed At | + + + | [id number] | | | [id number] CHAD | | | [facility]AST[facility] Osei [id number] Date: | | | 10/16/2010 Attending Surgeon: | | | Kalyan Arias M.D. Mercerizing Range Feeder(s): | | | Raymond Valdes M.D. Preoperative Diagnosis(es): 1. | | | Periprosthetic infection right hip 2. 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 Postoperative Diagnosis(es): 1. | | | Periprosthetic infection right hip 2. Nonunion, right greater | | | trochanter. Procedures Performed: 1. Irrigation and | | | debridement, right hip deep soft tissue to bone, length of | | | incision 15 cm, depth 15-20 cm. 2. Hardware removal, right | | | proximal femur including clawed cable plate and 2 AO | | | screws and washers. 3. Deep tissue culture and biopsy using | | | Ortho biopsy tray. Anesthesia: General endotracheal. | | | Specimens: Deep tissue cultures x7 and removed hardware. | | | Complications: None appreciated. Clinical Note: Chastity Galdamez | | | is a 50-year-old female, who is almost 3 years out from a right | | | total hip arthroplasty. 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 | | | At the time of her index arthroplasty, frozen section biopsies | | | were sent, and there was no evidence of infection. She underwent | | | a primary hip replacement. An attempted ORIF of her trochanteric | | | nonunion with a clawed cable plate. The patient was unable to be | | | compliant with weightbearing restrictions, and her hardware failed | | | in the early postoperative period. This went on to be minimally | | | symptomatic for her, and she did well with the arthroplasty itself. | | | She presented as an ED transfer to [facility] approximately 3 days | | | prior to the above-listed procedure with a new sudden onset right hip | | | pain and leukocytosis. She underwent aspiration by Radiology of | | | the joint with minimal fluid returned and negative preliminary | | | cultures. She was worked up for fever of unknown origin, and no | | | other sources were identified. Her hip pain persisted as did the | | | leukocytosis. After the appropriate discussion and workup, she | | | elected to undergo the above-listed procedure. Procedure: | | | The patient was identified in the preoperative holding area and the | | | incision site marked. The patient was transferred into the | | | operating room. General anesthesia was administered. Antibiotics | | | were held until all cultures were obtained, and then cefazolin was | | | administered. The patient was placed in the left lateral | | | decubitus position with a hipGRIP. The right hind quadrant and | | | lower extremity were prepped and draped in a sterile and free | | | fashion. A surgical pause was performed. A portion of the | | | previous incisional scar was utilized to make a posterior approach | | | to the hip. Once the incision was made, the deep tissues were | | | aspirated. There was a fluctuant mass over the greater trochanter, | | | and 40 cc was aspirated of clear blood-tinged synovial-appearing | | | fluid. This was sent for anaerobic and aerobic cultures and blood | | | culture bottles per the ortho biopsy protocol. The fascia was | | | then divided in line with the skin. There was no grossly purulent | | | material encountered throughout the procedure, and other than an | | | abundant foreign body-type tissue reaction with extensive bursa, | | | the tissue appeared to be healthy and viable. A total of 5 deep | | | tissue biopsies were sent using the Ortho biopsy tray for culture. | | | The wound was copiously irrigated. The trochanteric claw cable | | | plate was readily encountered and was found to be grossly loose. | | | The intact cables were cut and the hardware removed without | | | difficulty. There was a previous broken cable with some fraying | | | evident on x-ray. Some of this was encountered and debrided as | | | much was felt to be safe. Next, the AO screws and washers were | | | identified in the supratrochanteric region. These were dissected | | | out and removed without further difficulty. The wound bed was | | | then further debrided of any friable tissue or excess bursa. The | | | wound was then copiously irrigated with 10 L of pulsatile lavage and | | | then closed in layers over medium Hemovac drain in a standard | | | fashion, and a standard dressing was applied. The patient | | | recovered uneventfully from her anesthetic and transferred stable | | | to PACU. Plan: The patient will be kept on antibiotics until | | | her cultures returned. If positive, the Infectious Disease | | | Service will be consulted. If there is indeed infection, it was | | | felt that this was a hematogenous seeding, and so attempts at | | | prosthesis salvage would be preferable. She will receive | | | multimodal DVT prophylaxis. Kalyan Arias M.D. [facility] / | | | [id number] / [id number] / [id number] / | | | | | + + + + + | Procedure Note | + + | Kalyan Arias MD - 10/17/2010 9:21 AM PST [id number] | | [id number] [facility] | | [id number] Date: 10/16/2010 Attending Surgeon: Kalyan | | Ortiz Arias M.D. Mercerizing Range Feeder(s): Raymond Valdes M.D. Preoperative | | Diagnosis(es):1. Periprosthetic infection right hip2. Nonunion, right greater | | trochanter. Postoperative Diagnosis(es):1. Periprosthetic infection right hip2. | | Nonunion, right greater trochanter. Procedures Performed:1. Irrigation and | | debridement, right hip deep soft tissue to bone, length of incision 15 cm, depth | | 15-20 cm.2. Hardware removal, right proximal femur including clawed cable plate | | and 2 AO screws and washers.3. Deep tissue culture and biopsy using Ortho biopsy | | tray. Anesthesia:General endotracheal. Specimens:Deep tissue cultures x7 and removed | | hardware. Complications:None appreciated. Clinical Note:Chastity Galdamez is a 50-year-old | | female, who is almost 3 years out from [facility] total hip arthroplasty. 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 At the | | time of herindex arthroplasty, frozen section biopsies were sent, and there was | | noevidence of infection. She underwent a primary hip replacement. Anattempted ORIF of | | her trochanteric nonunion with a clawed cable plate. Thepatient was unable to be | | compliant with weightbearing restrictions, and herhardware failed in the early | | postoperative period. This went on to beminimally symptomatic for her, and she did well | | with the arthroplastyitself. She presented as an ED transfer to [facility] approximately 3 | | days priorto the above-listed procedure with a new sudden onset right hip pain | | andleukocytosis. She underwent aspiration by Radiology of the joint withminimal fluid | | returned and negative preliminary cultures. She was workedup for fever of unknown | | origin, and no other sources were identified. Herhip pain persisted as did the | | leukocytosis. After the appropriatediscussion and workup, she elected to undergo the | | above-listed procedure. Procedure:The patient was identified in the preoperative | | holding area and theincision site marked. The patient was transferred into the | | operating room.General anesthesia was administered. Antibiotics were held until | | allcultures were obtained, and then cefazolin was administered. The patientwas placed | | in the left lateral decubitus position with a hipGRIP. Theright hind quadrant and lower | | extremity were prepped and draped in asterile and free fashion. A surgical pause was | | performed. A portion of the previous incisional scar was utilized to make a | | posteriorapproach to the hip. Once the incision was made, the deep tissues | | wereaspirated. There was a fluctuant mass over the greater trochanter, and 40cc was | | aspirated of clear blood-tinged synovial-appearing fluid. This wassent for anaerobic | | and aerobic cultures and blood culture bottles per [facility] biopsy protocol. The fascia | | was then divided in line with the skin.There was no grossly purulent material | | encountered throughout theprocedure, and other than an abundant foreign body-type tissue | | reactionwith extensive bursa, the tissue appeared to be healthy and viable. Atotal of | | 5 deep tissue biopsies were sent using the Ortho biopsy tray forculture. The wound was | | copiously irrigated. The trochanteric claw cableplate was readily encountered and was | | found to be grossly loose. Theintact cables were cut and the hardware removed without | | difficulty. Therewas a previous broken cable with some fraying evident on x-ray. Some | | ofthis was encountered and debrided as much was felt to be safe. Next, theAO screws and | | washers were identified in the supratrochanteric region.These were dissected out and | | removed without further difficulty. The woundbed was then further debrided of any | | friable tissue or excess bursa. Thewound was then copiously irrigated with 10 L of | | pulsatile lavage and thenclosed in layers over medium Hemovac drain in a standard | | fashion, and astandard dressing was applied. The patient recovered uneventfully from | | heranesthetic and transferred stable to PACU. Plan:The patient will be kept on | | antibiotics until her cultures returned. Ifpositive, the Infectious Disease Service | | will be consulted. If there isindeed infection, it was felt that this was a | | hematogenous seeding, and soattempts at prosthesis salvage would be preferable. She | | will receivemultimodal DVT prophylaxis. Kalyan Arias M.D.[facility] / [id number] / [id number] | | / [id number] / T: 10/16/2010 | |minimally symptomatic for her, and she did well with the arthroplasty | |itself. She presented as an ED transfer to [facility] approximately 3 days prior | |to the above-listed procedure with a new sudden onset right hip pain and | |leukocytosis. She underwent aspiration by Radiology of the joint with | |minimal fluid returned and negative preliminary cultures. She was worked | |up for fever of unknown origin, and no other sources were identified. Her | |hip pain persisted as did the leukocytosis. After the appropriate | |discussion and workup, she elected to undergo the above-listed procedure. | | | | | |Procedure: | |The patient was identified in the preoperative holding area and the | |incision site marked. The patient was transferred into the operating room. | |General anesthesia was administered. Antibiotics were held until all | |cultures were obtained, and then cefazolin was administered. The patient | |was placed in the left lateral decubitus position with a hipGRIP. The | |right hind quadrant and lower extremity were prepped and draped in a | |sterile and free fashion. A surgical pause was performed. | | | | | |A portion of the previous incisional scar was utilized to make a posterior | |approach to the hip. Once the incision was made, the deep tissues were | |aspirated. There was a fluctuant mass over the greater trochanter, and 40 | |cc was aspirated of clear blood-tinged synovial-appearing fluid. This was | |sent for anaerobic and aerobic cultures and blood culture bottles per the | |ortho biopsy protocol. The fascia was then divided in line with the skin. | |There was no grossly purulent material encountered throughout the | |procedure, and other than an abundant foreign body-type tissue reaction | |with extensive bursa, the tissue appeared to be healthy and viable. A | |total of 5 deep tissue biopsies were sent using the Ortho biopsy tray for | |culture. The wound was copiously irrigated. The trochanteric claw cable | |plate was readily encountered and was found to be grossly loose. The | |intact cables were cut and the hardware removed without difficulty. There | |was a previous broken cable with some fraying evident on x-ray. Some of | |this was encountered and debrided as much was felt to be safe. Next, the | |AO screws and washers were identified in the supratrochanteric region. | |These were dissected out and removed without further difficulty. The wound | |bed was then further debrided of any friable tissue or excess bursa. The | |wound was then copiously irrigated with 10 L of pulsatile lavage and then | |closed in layers over medium Hemovac drain in a standard fashion, and a | |standard dressing was applied. The patient recovered uneventfully from her | |anesthetic and transferred stable to PACU. | | | | | |Plan: | |The patient will be kept on antibiotics until her cultures returned. If | |positive, the Infectious Disease Service will be consulted. If there is | |indeed infection, it was felt that this was a hematogenous seeding, and so | |attempts at prosthesis salvage would be preferable. She will receive | |multimodal DVT prophylaxis. | | | | | | | | | |Kalyan Arias M.D. | |[facility] / | |[id number] / [id number] / [id number] / | | | | | | | | | | | | | | | | | | | | | + + ANESTHESIA/SEDATION (10/16/2010 12:00 AM PST) + + + | Narrative | Performed At | + + + | | | + + + + + | Procedure Note | + + | Beatriz Beckett - 10/16/2010 1:03 PM PST | | | + + ANESTHESIA/SEDATION (10/16/2010 12:00 AM PST) + + + | Narrative | Performed At | + + + | | | + + + + + | Procedure Note | + + | Beatriz Beckett - 10/16/2010 10:03 AM PST | | | + + CAPILLARY BLOOD GLUCOSE, POC (10/15/2010 9:05 PM PST) + +---------+ + + + | Component | Value | Ref Range | Performed | Pathologist | | | | | At | Signature | + +---------+ + + + | BLOOD | 129 (H) | 60 - 99 mg/dL | [facility] - | | | GLUCOSE, | | | [facility] | | | POC | | | [facility] | | | | | | OF CARE | | | | | | TESTS | | + +---------+ + + + + + | Specimen | + + | | + + + + + + + | Performing | Address | City/State/Zipcode | Phone Number | | Organization | | | | + + + + + | [facility] | [address] | [place], [place] | | | [facility] | [facility] | [address] | | | TESTS | | | | + + + + + TYPE AND SCREEN (10/15/2010 6:13 PM PST) + + + + + [...] + + + | [facility] | [address] | [place] [address] | | | PATHOLOGY | [address] | | | + + + + + PRODUCT- RED CELLS LEUKOREDUCED (10/15/2010 5:54 PM PST) + + + + + [...] + + + + | PRODUCT | [id number] | | [facility] | | | UNIT [...] + + + + + + | BLOOD | [id number] | | [facility] | | | PRODUCT | | | DEPARTMENT | | | CODE | | | OF | | | [...] DEPARTMENT OF | [address] | [place] [address] | | | PATHOLOGY | [address] | | | + + + + + PRODUCT- RED CELLS LEUKOREDUCED (10/15/2010 5:54 PM PST) + + + + + [...] + + + + | PRODUCT | [id number] | | [facility] | | | UNIT [...] + + + + + + | BLOOD | [id number] | | [facility] | | | PRODUCT | | | DEPARTMENT | | | CODE | | | OF | | | | | | PATHOLOGY | | + + + + + + + + | Specimen | + + | | + + + + + + + | Performing | Address | City/State/Zipcode | Phone Number | | Organization | | | | + + + + + | [facility] | [address] | [place] [address] | | | PATHOLOGY | [address] | | | + + + + + CAPILLARY BLOOD GLUCOSE, POC (10/15/2010 2:47 PM PST) + +---------+ + + + | Component | Value | Ref Range | Performed | Pathologist | | | | | At | Signature | + +---------+ + + + | BLOOD | 107 (H) | 60 - 99 mg/dL | [facility] - | | | GLUCOSE, | | | [facility] | | | POC | | | [facility] | | | | | | OF CARE | | | | | | TESTS | | + +---------+ + + + + + | Specimen | + + | | + + + + + + + | Performing | Address | City/State/Zipcode | Phone Number | | Organization | | | | + + + + + | [facility] | [address] | [place], [place] | | | [facility] [place] | [address] | [address] | | | TESTS | | | | + + + + + CAPILLARY BLOOD GLUCOSE, POC (10/15/2010 8:49 AM PST) + +---------+ + + + | Component | Value | Ref Range | Performed | Pathologist | | | | | At | Signature | + +---------+ + + + | BLOOD | 147 (H) | 60 - 99 mg/dL | [facility] - | | | GLUCOSE, | | | [facility] | | | POC | | | [facility] | | | | | | OF CARE | | | | | | TESTS | | + +---------+ + + + + + | Specimen | + + | | + + + + + + + | Performing | Address | City/State/Zipcode | Phone Number | | Organization | | | | + + + + + | [facility] | [address] | [place], [place] | | | [facility] [place] | [facility] | [address] | | | TESTS | | | | + + + + + CAPILLARY BLOOD GLUCOSE, POC (10/14/2010 11:02 PM PST) + +---------+ + + + | Component | Value | Ref Range | Performed | Pathologist | | | | | At | Signature | + +---------+ + + + | BLOOD | 142 (H) | 60 - 99 mg/dL | [facility] - | | | GLUCOSE, | | | [facility] | | | POC | | | [facility] | | | | | | OF CARE | | | | | | TESTS | | + +---------+ + + + + + | Specimen | + + | | + + + + + + + | Performing | Address | City/State/Zipcode | Phone Number | | Organization | | | | + + + + + | [facility] | [address] | [place], [place] | | | [facility] | [address] | [address] | | | TESTS | | | | + + + + + CT ABDOMEN & PELVIS W IV CONTRAST (10/14/2010 8:03 PM PST) + + + + + + | Component | Value | Ref Range | Performed | Pathologist | | | | | At | Signature | + + + + + + | CT ABDOMEN | CT of the abdomen and | | | | | & PELVIS W | pelvis with 150 cc of | | | | | CONTRAST | Omnipaque | | | | | | intravenouslyand oral | | | | | | contrast History: | | | | | | Evaluate for | | | | | | diverticulitis | | | | | | Comparison: Outside | | | | | | hospital CT from | | | | | | 03/19/2008. FINDINGS: | | | | | | ABDOMEN: Subsegmental | | | | | | atelectasis is noted in | | | | | | the lung bases. | | | | | | Mildintrahepatic and | | | | | | extrahepatic biliary | | | | | | dilatation is noted with | | | | | | smoothtapering to the | | | | | | ampulla. Postsurgical | | | | | | changes of | | | | | | cholecystectomy | | | | | | arenoted. The | | | | | | pancreas, spleen, | | | | | | adrenal glands and left | | | | | | kidney arenormal. | | | | | | Subcentimeter | | | | | | hypodensities in the | | | | | | right kidney are | | | | | | toosmall to further | | | | | | characterize but | | | | | | statistically represent | | | | | | cysts.There is contrast | | | | | | seen within the distal | | | | | | esophagus which may | | | | | | berelated to reflux or | | | | | | dysmotility. Small fat | | | | | | containing | | | | | | umbilicalhernia is | | | | | | noted. PELVIS: | | | | | | Considerable streak | | | | | | artifact limits | | | | | | evaluation of the pelvis | | | | | | from theright hip | | | | | | prosthesis. Multiple | | | | | | sigmoid diverticula in | | | | | | distal | | | | | | colonicdiverticula are | | | | | | noted without evidence | | | | | | of diverticulitis. | | | | | | Noevidence of bowel | | | | | | obstruction is seen. | | | | | | The bladder is normal. | | | | | | Noascites. Increased | | | | | | inflammatory changes are | | | | | | noted along the | | | | | | subcutaneoustissues of | | | | | | the right hip with a | | | | | | complex fluid collection | | | | | | measuringapproximately | | | | | | 8.3 x 5 .1 cm, this is | | | | | | new since the prior | | | | | | study. Aright hip | | | | | | prosthesis is noted with | | | | | | chronic changes of | | | | | | comminutedfracture | | | | | | involving the right | | | | | | femur. Given the fluid | | | | | | collection andcortical | | | | | | irregularity of the | | | | | | right femur, infection | | | | | | is possible.There is | | | | | | also lucency around the | | | | | | orthopedic hardware | | | | | | suggestingloosening. | | | | | | IMPRESSION: 1. No | | | | | | evidence of | | | | | | diverticulitis. 2. New | | | | | | fluid collection | | | | | | surrounding the right | | | | | | hip with irregularityof | | | | | | the femoral cortex is | | | | | | worrisome for infection. | | | | | | Correlate | | | | | | withaspiration. I have | | | | | | personally viewed this | | | | | | procedure/exam and | | | | | | reviewed this report. | | | | | | Author: EDY CAPELLAN, | | | | | | M.HeriReviewer: EDY CAPELLAN, | | | | | | M.D. STATUS FINAL / | | | | | | Dr. EDY CAPELLAN | | | | + + + + + + + + | Specimen | + + | | + + + +---------+ + + | Performing | Address | City/State/Zipcode | Phone Number | | Organization | | | | + +---------+ + + | [facility] DEPARTMENT OF | | | | | RADIOLOGY | | | | + +---------+ + + RESP CARE THERAPY (10/14/2010 5:49 PM PST) + + + + + + | Component | Value | Ref Range | Performed | Pathologist | | | | | At | Signature | + + + + + + | RESPIRATORY | : History and Assessment | | [facility] | | | CARE | : HIP REPLACEMENT | | RESPIRATORY | | | | Pulmonary problems: | | THERAPY | | | | Current problems | | | | | | include, obstructive | | | | | | sleep apneaatelectasis | | | | | | respiratory | | | | | | insufficiency .Smoking | | | | | | history: The patient | | | | | | currently smokes one or | | | | | | more packs per | | | | | | day.Results of recent | | | | | | Chest X-ray: clear lung | | | | | | lopez .Pain: Patients | | | | | | pain assessed and was a | | | | | | 0 on a scale of | | | | | | 0-10.Oxygen requirement: | | | | | | 2 LPM with an oxygen | | | | | | saturation of 96 %.Heart | | | | | | rate: 80 beats per | | | | | | minuteRespiratory rate: | | | | | | 18 breaths per | | | | | | minuteTemperature: 36.8 | | | | | | ? | | | | | | C.Breathsounds:diminishe | | | | | | d .Cough and sputum | | | | | | production:Patient had a | | | | | | non-productive cough. | | | | | | Treatments GivenNo | | | | | | therapy indicated at | | | | | | this time. Respiratory | | | | | | Acuity and Protocol | | | | | | PlanA respiratory | | | | | | evaluation has been | | | | | | completed. Based on this | | | | | | assesmentInhaled | | | | | | medication will be | | | | | | delivered by RTaccording | | | | | | to the patient's | | | | | | homeregimen under the | | | | | | bronchodilator protocol. | | | | | | Electronically | | | | | | Signed by: John | | | | | | Beganovic, | | | | + + + + + + + + | Specimen | + + | | + + + + + + + | Performing | Address | City/State/Zipcode | Phone Number | | Organization | | | | + + + + + | [facility] | [address] | [place], [place] | | | THERAPY | [address] | [address] | | + + + + + 12 LEAD ECG (10/14/2010 5:31 PM PST) + + + + + + | Component | Value | Ref Range | Performed | Pathologist | | | | | At | Signature | + + + + + + | VENTRICULAR | 101 | BPM | [facility] | | | RATE | | | OF | | | | | | CARDIOLOGY | | + + + + + + | ATRIAL RATE | 101 | BPM | [facility] | | | | | | OF | | | | | | CARDIOLOGY | | + + + + + + | P-R | 134 | ms | [facility] | | | INTERVAL | | | OF | | | | | | CARDIOLOGY | | + + + + + + | QRS | 92 | ms | [facility] | | | DURATION | | | OF | | | | | | CARDIOLOGY | | + + + + + + | QT | 348 | ms | [facility] | | | | | | OF | | | | | | CARDIOLOGY | | + + + + + + | QTC | 451 | ms | [facility] | | | | | | OF | | | | | | CARDIOLOGY | | + + + + + + | P AXIS | 73 | degrees | [facility] | | | | | | OF | | | | | | CARDIOLOGY | | + + + + + + | R AXIS | 69 | degrees | [facility] | | | | | | OF | | | | | | CARDIOLOGY | | + + + + + + | T AXIS | 71 | degrees | [facility] | | | | | | OF | | | | | | CARDIOLOGY | | + + + + + + | EKG | Sinus | | [facility] | | | DIAGNOSIS | tachycardiaOtherwise | | OF | | | | normal ECGConfirmed by | | CARDIOLOGY | | | | JESSICA BOSTON ([id number]) on | | | | | | 10/15/2010 1:47:02 PM | | | | + + + + + + + + | Specimen | + + | | + + + + + | Narrative | Performed At | + + + | Please click | [facility] OF | | on view image for the detailed interpretation from [employer] results. | CARDIOLOGY | + + + + + + + + | Performing | Address | City/State/Zipcode | Phone Number | | Organization | | | | + + + + + | [facility] | [address] | [place], [place] | | | CARDIOLOGY | [address] | [address] | | + + + + + CULTURE, BLOOD BACTI & YEAST (10/14/2010 4:51 PM PST) + + + + + + | Component | Value | Ref Range | Performed | Pathologist | | | | | At | Signature | + + + + + + | SOURCE BODY | Hand Blood Left | | [facility] | | | SITE | | | REGIONAL | | | | | | LAB-MICRO | | + + + + + + | CULTURE | Blood Culture | | [facility] | | | RESULT | | | REGIONAL | | | | Source.................. | | LAB-MICRO | | | | : Hand Blood Left | | | | | | | | | | | | Result.................. | | | | | | . Final: No growth at 5 | | | | | | days. | | | | + + + + + + + + | Specimen | + + | Blood - Hand | + + + + + + + | Performing | Address | City/State/Zipcode | Phone Number | | Organization | | | | + + + + + | [facility] | [address] | [place] [address] | | | LAB-MICRO | | | | + + + + + BASIC METABOLIC SET (NA, K, CL, TCO2, BUN, CR, GLU, CA) (10/14/2010 4:15 PM PST) + + + + + + | Component | Value | Ref Range | Performed | Pathologist | | | | | At | Signature | + + + + + + | GLUCOSE, | 150 (H) | 60 - 99 mg/dL | [facility] | | | PLASMA | | | DEPARTMENT | | | (LAB) | | | OF | | | | | | PATHOLOGY | | + + + + + + | BUN, PLASMA | 7 | 6 - 20 mg/dL | [facility] | | | (LAB) | | | DEPARTMENT | | | | | | OF | | | | | | PATHOLOGY | | + + + + + + | CREATININE | 0.59 (L) | 0.60 - 1.10 | [facility] | | | PLASMA | | mg/dL | DEPARTMENT | | | (LAB) | | | OF | | | | | | PATHOLOGY | | + + + + + + | SODIUM, | 132 (L) | 134 - 143 | [facility] | | | PLASMA | | mmol/L | DEPARTMENT | | | (LAB) | | | OF | | | | | | PATHOLOGY | | + + + + + + | POTASSIUM, | 4.1 | 3.4 - 5.0 | [facility] | | | PLASMA | | mmol/L | DEPARTMENT | | | (LAB) | | | OF | | | | | | PATHOLOGY | | + + + + + + | CHLORIDE, | 98 | 97 - 108 mmol/L | [facility] | | | PLASMA | | | DEPARTMENT | | | (LAB) | | | OF | | | | | | PATHOLOGY | | + + + + + + | TOTAL CO2, | 29Comment: New Total | 22 - 29 mmol/L | [facility] | | | PLASMA | CO2 reference range | | DEPARTMENT | | | (LAB) | effective 08/22/10. | | OF | | | | | | PATHOLOGY | | + + + + + + | CALCIUM, | 9.0 | 8.6 - 10.2 | [facility] | | | PLASMA | | mg/dL | DEPARTMENT | | | (LAB) | | | OF | | | | | | PATHOLOGY | | + + + + + + | ANION GAP | 5 | 4 - 11 mmol/L | [facility] [...] DEPARTMENT OF | [address] | [place] [address] | | | PATHOLOGY | [address] | | | + + + + + DIFFERENTIAL (10/14/2010 5:32 AM PST) + + + + + + | Component | Value | Ref Range | Performed | Pathologist | | | | | At | Signature | + + + + + + | NEUTROPHIL | 88 (H) | 50 - 70 % | [facility] | | | % | | | DEPARTMENT | | | | | | OF | | | | | | PATHOLOGY | | + + + + + + | LYMPHOCYTE | 5 (L) | 18 - 42 % | [facility] [...] + + + | EOS % | 0 (L) | 1 - 3 % | [facility] [...] + + + + | NEUTROPHIL | 16.3 (H) | 1.8 - 7.7 K/cu | [facility] | | | # | | mm | DEPARTMENT | | | | | | OF | | | | | | PATHOLOGY | | + + + + + + | LYMPHOCYTE | 0.9 (L) | 1.0 - 4.8 K/cu | [facility] | | | # | | mm | DEPARTMENT | | | | | | OF | | | | | | PATHOLOGY | | + + + + + + | MONOCYTE # | 0.9 (H) | <0.9 K/cu mm | [facility] | | | | | | DEPARTMENT | | | | | | OF | | | | | | PATHOLOGY | | + + + + + + | EOS # | 0.0 | <0.6 K/cu mm | [facility] | | | | | | DEPARTMENT | | | | | | OF | | | | | | PATHOLOGY | | + + + + + + | BASO # | 0.2 | <0.3 | [facility] | | | | | | DEPARTMENT | | | | | | OF | | | | | | PATHOLOGY | | + + + + + + + + | Specimen | + + | | + + + + + | Narrative | Performed At | + + + | * Corrected 10/14/10 07:36: RAHUL COMMENTS, prev report: Slide | [facility] | | review pending. | DEPARTMENT OF | | | PATHOLOGY | + + + + + + + + | Performing | Address | City/State/Zipcode | Phone Number | | Organization | | | | + + + + + | [facility] | [address] | [place] [address] | | | PATHOLOGY | [address] | | | + + + + + CBC, WITH DIFFERENTIAL (10/14/2010 5:32 AM PST) + + + + + + | Component | Value | Ref Range | Performed | Pathologist | | | | | At | Signature | + + + + + + | WHITE CELL | 18.5 (H) | 4.4 - 11.0 K/cu | [facility] | | | COUNT | | mm | DEPARTMENT | | | | | | OF | | | | | | PATHOLOGY | | + + + + + + | RED CELL | 4.10 | 4.00 - 5.20 | [facility] | [...] + + + + | HEMATOCRIT | 36.2 | 36.0 - 46.0 % | [facility] | | | | | | DEPARTMENT | | | | | | OF | | | | | | PATHOLOGY | | + + + + + + | MCV | 88.2 | 80.0 - 96.0 fL | [facility] [...] + + + + | PLATELET | 297 | 150 - 400 K/cu | [facility] [...] + + + + + + | DIFF | <or= 10% bands seen on | | [facility] | | | COMMENTS | scan. | | DEPARTMENT | | | | | | OF | | | | | | PATHOLOGY | | + + + + + + + + | Specimen | + + | Blood - Blood | + + + + + | Narrative | Performed At | + + + | * Corrected 10/14/10 07:36: RAHUL COMMENTS, prev report: Slide | [facility] | | review pending. | DEPARTMENT OF | | | PATHOLOGY | + + + + + + + + | Performing | Address | City/State/Zipcode | Phone Number | | Organization | | | | + + + + + | [facility] | [address] | [place] [address] | | | PATHOLOGY | [address] | | | + + + + + TRANSTHORACIC ECHOCARDIOGRAM, ADULT (10/14/2010 12:00 AM PST) + + + | Narrative | Performed At | + + + | | | + + + + + | Procedure Note | + + | Other, Faculty - 10/14/2010 3:32 PM PST | | | + + CULTURE, URINE BACTI (10/13/2010 10:45 PM PST) + + + + + + | Component | Value | Ref Range | Performed | Pathologist | | | | | At | Signature | + + + + + + | SOURCE BODY | Clean catch | | [facility] | | | SITE | | | REGIONAL | | | | | | LAB-MICRO | | + + + + + + | CULTURE | Urine Culture | | [facility] | | | RESULT | | | REGIONAL | | | | Source...............: | | LAB-MICRO | | | | Clean catch | | | | | | Culture: < | | | | | | 10,000 col/ml | | | | | | Insignificant growth | | | | | | Final Report | | | | | | Resulted: 10/15/10 | | | | | | [facility] | | | | | | Way Lab) | | | | | | [facility] | | | | | | [address] | | | | [address] | | | | | | [place] [address] | | | | + + + + + + + + | Specimen | + + | | + + + + + + + | Performing | Address | City/State/Zipcode | Phone Number | | Organization | | | | + + + + + | [facility] | [address] | [place] [address] | | | LAB-MICRO | | | | + + + + + UA PATRICIARAY ONLY (10/13/2010 10:45 PM PST) + + + + + + | Component | Value | Ref Range | Performed | Pathologist | | | | | At | Signature | + + + + + + | COLOR(UR) | Yellow | | [facility] | | | | | | DEPARTMENT | | | | | | OF | | | | | | PATHOLOGY | | + + + + + + | APPEARANCE | Hazy | | [facility] | | | | | | DEPARTMENT | | | | | | OF | | | | | | PATHOLOGY | | + + + + + + | GLUCOSE(UR) | Negative | mg/dL | [facility] | | | | | | DEPARTMENT | | | | | | OF | | | | | | PATHOLOGY | | + + + + + + | BILIRUBIN | Negative | | [facility] | | | | | | DEPARTMENT | | | | | | OF | | | | | | PATHOLOGY | | + + + + + + | KETONES | Negative | mg/dL | [facility] | | | | | | DEPARTMENT | | | | | | OF | | | | | | PATHOLOGY | | + + + + + + | SPECIFIC | 1.010 | 1.005 - 1.030 | [facility] | | | GRAVITY | | | DEPARTMENT | | | | | | OF | | | | | | PATHOLOGY | | + + + + + + | BLOOD | Moderate (A) | | [facility] | | | | | | DEPARTMENT | | | | | | OF | | | | | | PATHOLOGY | | + + + + + + | PH(UR) | 6.5 | 5.0 - 8.0 | [facility] | | | | | | DEPARTMENT | | | | | | OF | | | | | | PATHOLOGY | | + + + + + + | PROTEIN(LAB | Trace (A) | mg/dL | [facility] | | | ) | | | DEPARTMENT | | | | | | OF | | | | | | PATHOLOGY | | + + + + + + | UROBILINOGE | 1.0 (A) | 0 - 0.2 LEYLA | [facility] | | | N | | UNITS | DEPARTMENT | | | | | | OF | | | | | | PATHOLOGY | | + + + + + + | NITRITES | Negative | Negative | [facility] | | | | | | DEPARTMENT | | | | | | OF | | | | | | PATHOLOGY | | + + + + + + | LEUKOCYTE | Negative | Negative | [facility] | | | ESTERASE | | | DEPARTMENT | | | | | | OF | | | | | | PATHOLOGY | | + + + + + + + + | Specimen | + + | Urine - Urine | + + + + + + + | Performing | Address | City/State/Zipcode | Phone Number | | Organization | | | | + + + + + | [facility] | [address] | [place] [address] | | | PATHOLOGY | [address] | | | + + + + + URINE, MICROSCOPIC EXAM (10/13/2010 10:45 PM PST) + + + + + + | Component | Value | Ref Range | Performed | Pathologist | | | | | At | Signature | + + + + + + | SQUAMOUS | Moderate (A) | /hpf | [facility] | | | EPITHELIAL | | | DEPARTMENT | | | | | | OF | | | | | | PATHOLOGY | | + + + + + + | NON-SQUAMOU | Few (A) | /hpf | [facility] | | | S EPITH | | | DEPARTMENT | | | | | | OF | | | | | | PATHOLOGY | | + + + + + + | RED CELLS | 7-10 | 0 - 3 /hpf | [facility] | | | | | | DEPARTMENT | | | | | | OF | | | | | | PATHOLOGY | | + + + + + + | WHITE CELLS | 2-3 | 0 - 5 /hpf | [facility] | | | | | | DEPARTMENT | | | | | | OF | | | | | | PATHOLOGY | | + + + + + + | BACTERIA | Few (A) | /hpf | [facility] | | | | | | DEPARTMENT | | | | | | OF | | | | | | PATHOLOGY | | + + + + + + | MUCOUS | None | /hpf | [facility] | | | | | | DEPARTMENT | | | | | | OF | | | | | | PATHOLOGY | | + + + + + + | HYALINE | None | 0 - 1 /lpf | [facility] | | | CASTS | | | DEPARTMENT | | | | | | OF | | | | | | PATHOLOGY | | + + + + + + | GRANULAR | None | /lpf | [facility] | | | CASTS | | | DEPARTMENT | | | | | | OF | | | | | | PATHOLOGY | | + + + + + + | CELLULAR | None | /lpf | [facility] | | | CASTS | | | DEPARTMENT | | | | | | OF | | | | | | PATHOLOGY | | + + + + + + | AMORPHOUS | None | /hpf | [facility] | | | CRYSTALS | | | DEPARTMENT | | | | | | OF | | | | | | PATHOLOGY | | + + + + + + | CALCIUM | None | /hpf | [facility] | | | OXALATE | | | DEPARTMENT | | | JHON | | | OF | | | | | | PATHOLOGY | | + + + + + + | URIC ACID | None | /hpf | [facility] | | | CRYSTALS | | | DEPARTMENT | | | | | | OF | | | | | | PATHOLOGY | | + + + + + + | TRIPLE P04 | None | /hpf | [facility] | | | CRYSTALS | | | DEPARTMENT | | | | | | OF | | | | | | PATHOLOGY | | + + + + + + | YEAST (LAB) | None | /hpf | [facility] | | | | | | DEPARTMENT | | | | | | OF | | | | | | PATHOLOGY | | + + + + + + | TRICHOMONAS | None | /hpf | [facility] | | | | | | DEPARTMENT | | | | | | OF | | | | | | PATHOLOGY | | + + + + + + + + | Specimen | + + | Urine - Urine | + + + + + + + | Performing | Address | City/State/Zipcode | Phone Number | | Organization | | | | + + + + + | [facility] | [address] | [place] [address] | | | PATHOLOGY | [address] | | | + + + + + URINE SCREEN FOR CULTURE (10/13/2010 10:45 PM PST) + + + + + + | Component | Value | Ref Range | Performed | Pathologist | | | | | At | Signature | + + + + + + | CULT, URINE | Negative for Nitrites | | [facility] | | | SCREEN | and Leukocyte Esterase. | | DEPARTMENT | | | | Specimen sent for | | OF | | | | culture based on | | PATHOLOGY | | | | microscopic findings. | | | | + + + + + + + + | Specimen | + + | Urine - Urine | + + + + + + + | Performing | Address | City/State/Zipcode | Phone Number | | Organization | | | | + + + + + | [facility] | [address] | [place] [address] | | | PATHOLOGY | [address] | | | + + + + + CULTURE, BLOOD BACTI & YEAST (10/13/2010 9:56 PM PST) + + + + + + | Component | Value | Ref Range | Performed | Pathologist | | | | | At | Signature | + + + + + + | SOURCE BODY | Right Forearm | | [facility] | | | SITE | | | REGIONAL | | | | | | LAB-MICRO | | + + + + + + | CULTURE | Blood Culture | | [facility] | | | RESULT | | | [facility] | | | | Source.................. | | LAB-MICRO | | | | : Right Forearm | | | | | | Result.................. | | | | | | . Final: No growth at 5 | | | | | | days. | | | | + + + + + + + + | Specimen | + + | Blood | + + + + + + + | Performing | Address | City/State/Zipcode | Phone Number | | Organization | | | | + + + + + | [facility] | [address] | [place] [address] | | | LAB-MICRO | | | | + + + + + CULTURE, BLOOD BACTI & YEAST (10/13/2010 9:56 PM PST) + + + + + + | Component | Value | Ref Range | Performed | Pathologist | | | | | At | Signature | + + + + + + | SOURCE BODY | Right Forearm | | [facility] | | | SITE | | | [facility] | | | | | | [facility] | | + + + + + + | CULTURE | Blood Culture | | [facility] | | | RESULT | | | [facility] | | | | Source.................. | | LAB-MICRO | | | | : Right Forearm | | | | | | Result.................. | | | | | | . Final: No growth at 5 | | | | | | days. | | | | + + + + + + + + | Specimen | + + | Blood | + + + + + + + | Performing | Address | City/State/Zipcode | Phone Number | | Organization | | | | + + + + + | [facility] | [address] | [place] [address] | | | LAB-MICRO | | | | + + + + + X-RAY CHEST 2 VIEW (10/13/2010 8:28 PM PST) + + + + + + | Component | Value | Ref Range | Performed | Pathologist | | | | | At | Signature | + + + + + + | CHEST, 2 | STUDY: CHEST 2 VIEWS | | | | | VIEWS [place] | 10/13/10 20:28:00 | | | | | STERE[facility] | COMPARISON: 09/26/03. | | | | | | FINDINGS: The cardiac | | | | | | silhouette is mildly | | | | | | enlarged, as before. | | | | | | Themediastinal contour | | | | | | is within normal | | | | | | limits. There is mild | | | | | | vascularengorgement. | | | | | | Vascular pedicle width | | | | | | is increased compatible | | | | | | withincreased | | | | | | intravascular volume. | | | | | | Mild airway thickening | | | | | | may also bepresent. | | | | | | No consolidation or | | | | | | edema. No pneumothorax | | | | | | or pleuraleffusion. | | | | | | Regional osseous | | | | | | structures are intact. | | | | | | IMPRESSION: 1. Stable | | | | | | mild cardiomegaly. 2. | | | | | | Increased | | | | | | intravascular volume | | | | | | without edema. 3. | | | | | | Possible mild airway | | | | | | thickening which could | | | | | | reflect | | | | | | bronchitis,asthma or | | | | | | reactive airway disease. | | | | | | I have personally | | | | | | viewed this | | | | | | procedure/exam and | | | | | | reviewed this report. | | | | | | Author: JAVIER Meek | | | | | | Trinh MONTIEL: | | | | | | PATO MINA MD | | | | | | STATUS FINAL / Dr. WHYTE | | | | | | ANTONIO | | | | + + + + + + + + | Specimen | + + | | + + + +---------+ + + | Performing | Address | City/State/Zipcode | Phone Number | | Organization | | | | + +---------+ + + | [facility] | | | | | RADIOLOGY | | | | + +---------+ + + X-RAY ASPIRATION OR INJECTION MAJOR JOINT W/NEEDLE PLCMT (10/13/2010 7:01 PM PST) + + + + + + | Component | Value | Ref Range | Performed | Pathologist | | | | | At | Signature | + + + + + + | X-RAY | STUDY: ASPIRATION OR INJ | | | | | ASPIRATION | MAJOR JOINT COMBO | | | | | OR INJ | 10/13/10 17:09:00 | | | | | (HIP/KNEE/S | CLINICAL DATA: Total | | | | | HOULDER) | hip arthroplasty with | | | | | JOINT | pain. Evaluate | | | | | COMBOT | forseptic arthritis. | | | | | | TECHNIQUE AND FINDINGS: | | | | | | Verbal and written | | | | | | informed consent | | | | | | wasobtained from the | | | | | | patient, who was then | | | | | | positioned supine | | | | | | oblique onthe | | | | | | fluoroscopy table. The | | | | | | right hip was localized | | | | | | underfluoroscopic | | | | | | visualization, and a | | | | | | suitable skin entry site | | | | | | wasselected and marked. | | | | | | The femoral pulse was | | | | | | palpated and noted to | | | | | | bemedial to the | | | | | | anticipated needle path. | | | | | | The area was prepared | | | | | | anddraped in the usual | | | | | | sterile fashion. Under | | | | | | fluoroscopic guidance, a | | | | | | 3.5-inch, 18-gauge | | | | | | spinal needle | | | | | | wasadvanced into the | | | | | | right hip joint at the | | | | | | medial margin of | | | | | | theprosthetic femoral | | | | | | neck. Aspiration was | | | | | | attempted at | | | | | | multiplelocations along | | | | | | the medial margin of the | | | | | | prosthetic femoral neck | | | | | | withno yield; spot | | | | | | images were taken at | | | | | | multiple locations of | | | | | | aspirationattempt. | | | | | | Approximately 17 cc | | | | | | preservative-free saline | | | | | | was injectedfollowing | | | | | | the last attempt. | | | | | | Aspiration yielded | | | | | | less than 1 cc | | | | | | ofserosanguineous fluid, | | | | | | which was collected and | | | | | | sent for | | | | | | laboratoryanalysis. A | | | | | | small amount of | | | | | | Omnipaque-300 contrast | | | | | | was injected, outlining | | | | | | thehip joint space and | | | | | | confirming | | | | | | intraarticular position | | | | | | of the needletip. The | | | | | | patient tolerated the | | | | | | procedure well, without | | | | | | immediatecomplications. | | | | | | Drs. Castro and | | | | | | Antonio performed the | | | | | | procedure.Dr. Castro | | | | | | was present throughout. | | | | | | IMPRESSION: | | | | | | Fluoroscopic-guided | | | | | | right hip aspiration, | | | | | | yielding less than 1 cc | | | | | | ofserosanguineous fluid. | | | | | | The fluid was sent | | | | | | for the usual studies. | | | | | | I have personally viewed | | | | | | this procedure/exam and | | | | | | reviewed this report. | | | | | | Author: PATO MINA, | | | | | | MalcomReviewer: MOSHE | | | | | | Malcom CASTRO STATUS | | | | | | FINAL / Dr. MESA | | | | | | BREA PENDING | | | | | | FINAL APPROVAL / | | | | | | PATO ROJAS | | | | | | PRELIMINARY - UNSIGNED / | | | | | | Dr. PATO MINA | | | | + + + + + + + + | Specimen | + + | | + + + +---------+ + + | Performing | Address | City/State/Zipcode | Phone Number | | Organization | | | | + +---------+ + + | [facility] | | | | | RADIOLOGY | | | | + +---------+ + + BODY FLUID INFO PANEL (10/13/2010 5:03 PM PST) + +---------+ + + + | Component | Value | Ref Range | Performed | Pathologist | | | | | At | Signature | + +---------+ + + + | TYPE OF | Dup req | | [facility] | | | FLUID | | | DEPARTMENT | | | [...] | [facility] | [address] | [place] [address] | | | PATHOLOGY | [address] | | | + + + + + SYNOVIAL FLUID CELL COUNT / DIFF (10/13/2010 5:03 PM PST) + + + + + + | Component | Value | Ref Range | Performed | Pathologist | | | | | At | Signature | + + + + + + | SYNOVIAL FL | Right Hip | | [facility] | | | SOURCE | | | DEPARTMENT | | | | | | OF | | | | | | PATHOLOGY | | + + + + + + | WBC | QNS | 0 - 200 /cu mm | [facility] | | | SYNOVIAL | | | DEPARTMENT | | | FLUID | | | OF | | | | | | PATHOLOGY | | + + + + + + | RBC | QNS | /cu mm | [facility] | | | SYNOVIAL | | | DEPARTMENT | | | FLUID | | | OF | | | | | | PATHOLOGY | | + + + + + + | TOTAL CELLS | QNS | | [facility] | | | COUNTED | | | DEPARTMENT | | | | | | OF | | | | | | PATHOLOGY | | + + + + + + + + | Specimen | + + | | + + + + + | Narrative | Performed At | + + + | Synovial Fluid Cell Count/Diff | [facility] | | | DEPARTMENT OF | | | PATHOLOGY | + + + + + + + + | Performing | Address | City/State/Zipcode | Phone Number | | Organization | | | | + + + + + | [facility] | [address] | [place] [address] | | | PATHOLOGY | [address] | | | + + + + + SYNOVIAL FLUID, CRYSTALS (10/13/2010 5:03 PM PST) + +-------+ + + + | Component | Value | Ref Range | Performed | Pathologist | | | | | At | Signature | + +-------+ + + + | CRYSTALS | QNS | | [facility] | | | | | | DEPARTMENT | | | | | | OF | | | | | | PATHOLOGY | | + +-------+ + + + + + | Specimen | + + | Synovial fluid - | | Synovial fluid | + + + + + + + | Performing | Address | City/State/Zipcode | Phone Number | | Organization | | | | + + + + + | [facility] | [address] | [place], [place] [address] | | | PATHOLOGY | [address] | | | + + + + + CULTURE, JOINT FLUID (SYNOVIAL) (10/13/2010 5:03 PM PST) + + + + + + | Component | Value | Ref Range | Performed | Pathologist | | | | | At | Signature | + + + + + + | SOURCE BODY | Synovial fluid Right Hip | | [facility] | | | SITE | | | REGIONAL | | | | | | LAB-MICRO | | + + + + + + | CULTURE | Joint Fluid | | [facility] | | | RESULT | Culture | | REGIONAL | | | | Source...............: | | LAB-MICRO | | | | Synovial fluid Right Hip | | | | | | RLB Gram | | | | | | Stain...........: No | | | | | | Squamous epithelial | | | | | | cells | | | | | | | | | | | | No PMN's | | | | | | | | | | | | No organisms seen. | | | | | | Culture: | | | | | | Final Report: No | | | | | | growth No | | | | | | anaerobes isolated | | | | | | Final Report | | | | + + + + + + + + | Specimen | + + | Synovial fluid - | | Synovial fluid | + + + + + + + | Performing | Address | City/State/Zipcode | Phone Number | | Organization | | | | + + + + + | [facility] | [address] | [place] [address] | | | LAB-MICRO | | | | + + + + + CELL COUNT DIFF, BODY FLUID (10/13/2010 5:03 PM PST) + +---------+ + + + | Component | Value | Ref Range | Performed | Pathologist | | | | | At | Signature | + +---------+ + + + | DIFF BODY | Dup req | | [facility] | | | FLUID | | | DEPARTMENT | | | | | | OF | | | | | | PATHOLOGY | | + +---------+ + + + | WBC, BODY | Dup req | 0 - 999 cu mm | [facility] | | | FLUID | | | DEPARTMENT | | | | | | OF | | | | | | PATHOLOGY | | + +---------+ + + + | RBC, BODY | Dup req | cu mm | [facility] | | | FLUID | | | DEPARTMENT | | | | | | OF | | | | | | PATHOLOGY | | + +---------+ + + + + + | Specimen | + + | Synovial fluid - | | Synovial fluid | + + + + + + + | Performing | Address | City/State/Zipcode | Phone Number | | Organization | | | | + + + + + | [facility] | [address] | [place] [address] | | | PATHOLOGY | [address] | | | + + + + + DIFFERENTIAL (10/13/2010 3:42 PM PST) + + + + + + | Component | Value | Ref Range | Performed | Pathologist | | | | | At | Signature | + + + + + + | NEUTROPHIL | 83 (H) | 50 - 70 % | [facility] | | | % | | | DEPARTMENT | | | | | | OF | | | | | | PATHOLOGY | | + + + + + + | LYMPHOCYTE | 8 (L) | 18 - 42 % | [facility] | | | % | | | DEPARTMENT | | | | | | OF | | | | | | PATHOLOGY | | + + + + + + | MONOCYTE % | 9 (H) | 2 - 8 % | [facility] | | | | | | DEPARTMENT | | | | | | OF | | | | | | PATHOLOGY | | + + + + + + | EOS % | 0 (L) | 1 - 3 % | [facility] | | | | | | DEPARTMENT | | | | | | OF | | | | | | PATHOLOGY | | + + + + + + | BASO % | 0 | <3 % | [facility] | | | | | | DEPARTMENT | | | | | | OF | | | | | | PATHOLOGY | | + + + + + + | NEUTROPHIL | 15.9 (H) | 1.8 - 7.7 K/cu | [facility] | | | # | | mm | DEPARTMENT | | | | | | OF | | | | | | PATHOLOGY | | + + + + + + | LYMPHOCYTE | 1.5 | 1.0 - 4.8 K/cu | [facility] | | | # | | mm | DEPARTMENT | | | | | | OF | | | | | | PATHOLOGY | | + + + + + + | MONOCYTE # | 1.7 (H) | <0.9 K/cu mm | [facility] | | | | | | DEPARTMENT | | | | | | OF | | | | | | PATHOLOGY | | + + + + + + | EOS # | 0.0 | <0.6 K/cu mm | [facility] | | | | | | DEPARTMENT | | | | | | OF | | | | | | PATHOLOGY | | + + + + + + | BASO # | 0.0 | <0.3 | [facility] | | | [...] | + + + + + | [facility] | [address] | [place] [address] | | | PATHOLOGY | [address] | | | + + + + + SEDIMENTATION RATE (10/13/2010 3:42 PM PST) + +--------+ + + + | Component | Value | Ref Range | Performed | Pathologist | | | | | At | Signature | + +--------+ + + + | SEDIMENTATI | 58 (H) | <31 mm/hr | [facility] | [...] DEPARTMENT OF | [address] | [place] [address] | | | PATHOLOGY | [address] | | | + + + + + CBC, WITH DIFFERENTIAL (10/13/2010 3:42 PM PST) + + + + + + | Component | Value | Ref Range | Performed | Pathologist | | | | | At | Signature | + + + + + + | WHITE CELL | 19.1 (H) | 4.4 - 11.0 K/cu | [facility] | | | COUNT | | mm | DEPARTMENT | | | | | | OF | | | | | | PATHOLOGY | | + + + + + + | RED CELL | 4.18 | 4.00 - 5.20 | [facility] | | | COUNT | | M/cu mm | DEPARTMENT | | | | | | OF | | | | | | PATHOLOGY | | + + + + + + | HEMOGLOBIN | 12.3 | 12.0 - 16.0 | [facility] | | | | | g/dL | DEPARTMENT | | | | | | OF | | | | | | PATHOLOGY | | + + + + + + | HEMATOCRIT | 36.7 | 36.0 - 46.0 % | [facility] | | | | | | DEPARTMENT | | | | | | OF | | | | | | PATHOLOGY | | + + + + + + | MCV | 87.8 | 80.0 - 96.0 fL | [facility] [...] + + + + | RDW | 14.4 | 11.5 - 15.0 % | [facility] | | | | | | DEPARTMENT | | | | | | OF | | | | | | PATHOLOGY | | + + + + + + | PLATELET | 296 | 150 - 400 K/cu | [facility] [...] + + + | [facility] | [address] | [place] [address] | | | PATHOLOGY | [address] | | | + + + + + C-REACT PRTN (FOR INFLAMMATION) (10/13/2010 11:30 AM PST) + + + + + + | Component | Value | Ref Range | Performed | Pathologist | | | | | At | Signature | + + + + + + | C-REACTIVE | 28.8 (H) | <0.6 mg/dl | [facility] | | | PROTEIN | | | REGIONAL | | | | | | LABORATORY | | + + + + + + + + | Specimen | + + | Blood - Blood | + + + + + | Narrative | Performed At | + + + | Reference Range Change effective 10/26/08 | [facility] | | [facility] | REGIONAL | | [place] [address] [facility] | LABORATORY | | [place] [address] | | + + + + + + + + | Performing | Address | City/State/Zipcode | Phone Number | | Organization | | | | + + + + + | [facility] | [address] | [place] [address] | | | LABORATORY | | | | + + + + + X-RAY HIP 2 VIEWS RIGHT W/ PELVIS 1 VIEW (10/12/2010 10:20 PM PST) + + + + + + | Component | Value | Ref Range | Performed | Pathologist | | | | | At | Signature | + + + + + + | X-RAY HIP 2 | Exam: HIP 2 VIEWS RIGHT | | | | | VIEWS | W/ PELVIS 1 VIEW | | | | | RIGHT W/ | 10/12/10 22:20:00 | | | | | PELVIS 1 | Comparison: 02/20/2010 | | | | | VIEW | Findings: 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 | | | | | | The femoral stem is well | | | | | | contained within the | | | | | | cortices.There is a | | | | | | lateral greater | | | | | | trochanteric plate and | | | | | | cerclage wiredevice, | | | | | | with unchanged | | | | | | appearance of a single | | | | | | broken cerclage | | | | | | wire.There are two | | | | | | interfragmentary screws, | | | | | | unchanged in | | | | | | position.Proximal | | | | | | displacement of the | | | | | | greater trochanteric | | | | | | fracture fragmentis | | | | | | unchanged. No acute | | | | | | fracture is identified. | | | | | | Impression:No acute | | | | | | osseous abnormality. | | | | | | Unchanged appearance of | | | | | | noncemented right total | | | | | | hip arthroplasty | | | | | | withlateral greater | | | | | | trochanteric plate and | | | | | | cerclage wire device, | | | | | | and anunchanged single | | | | | | broken cerclage wire. I | | | | | | have personally viewed | | | | | | this procedure/exam and | | | | | | reviewed this report. | | | | | | Author: ALESSANDRA HANSEN, | | | | | | MDReviewer: SUJATHA ACOSTA, | | | | | | STATUS FINAL / Dr. | | | | | | SUJATHA ACOSTA | | | | + + + + + + + + | Specimen | + + | | + + + +---------+ + + | Performing | Address | City/State/Zipcode | Phone Number | | Organization | | | | + +---------+ + + | [facility] | | | | | RADIOLOGY | | | | + +---------+ + + documented in this encounter Visit Diagnoses + + | Diagnosis | + + | Hip pain - Primary Pain in joint, pelvic region and thigh | + + | Hip replacement Hip joint replacement by other means | + + | Hip joint replacement by other means | + + | Sleep apnea Unspecified sleep apnea | + + | Leukocytosis Leukocytosis, unspecified | + + | Hyperglycemia Other abnormal glucose | + + | Lynn rash of groin Other candidiasis of other specified sites | + + documented in this encounter Administered Medications + +--------+ +--------+------+------+ | Medication Order | MAR | Action | Dose | Rate | Site | | | Action | Date | | | | + +--------+ +--------+------+------+ | acetaminophen (aka TYLENOL) | Given | 10/15/19 | 650 mg | | | | tablet 325-650 mg 325-650 mg, | | 11 11:58 | | | | | oral, EVERY 4 HOURS NEEDED, | | AM PST | | | | | Starting 10/14/10 at 1231, | | | | | | | Until 10/23/10 at 1604, mild | | | | | | | pain | | | | | | + +--------+ +--------+------+------+ +-------+ +--------+---+---+ | Given | 10/15/19 | 650 mg | | | | | 11 5:38 | | | | | | AM PST | | | | +-------+ +--------+---+---+ | Given | 10/14/19 | 650 mg | | | | | 11 11:39 | | | | | | PM PST | | | | +-------+ +--------+---+---+ +---+---+ | | | +---+---+ + +-------+ +--------+---+---+ | acetaminophen (aka TYLENOL) | Given | 10/14/19 | 650 mg | | | | tablet 650 mg 650 mg, oral, | | 11 5:44 | | | | | ONCE, 1 dose, 10/14/10 at 0545 | | AM PST | | | | + +-------+ +--------+---+---+ +---+---+ | | | +---+---+ + +-------+ +--------+---+---+ | aspirin EC tablet 325 mg 325 | Given | 10/23/19 | 325 mg | | | | mg, oral, TWICE DAILY, First dose | | 11 8:16 | | | | | on [place] 10/19/10 at 0900, Until | | AM PST | | | | | Discontinued | | | | | | + +-------+ +--------+---+---+ +-------+ +--------+---+---+ | Given | 10/22/19 | 325 mg | | | | | 11 9:04 | | | | | | PM PST | | | | +-------+ +--------+---+---+ | Given | 10/22/19 | 325 mg | | | | | 11 8:37 | | | | | | AM PST | | | | +-------+ +--------+---+---+ +---+---+ | | | +---+---+ + +-------+ +-----+---+---+ | ceFAZolin (aka ANCEF) injection | Given | 10/19/19 | 1 g | | | | 1 g 1 g, intravenous, EVERY 8 | | 11 12:56 | | | | | HOURS, First dose on 10/16/10 | | AM PST | | | | | at 1700, Until Discontinued | | | | | | + +-------+ +-----+---+---+ +-------+ +-----+---+---+ | Given | 10/18/19 | 1 g | | | | | 11 5:52 | | | | | | PM PST | | | | +-------+ +-----+---+---+ | Given | 10/18/19 | 1 g | | | | | 11 8:31 | | | | | | AM PST | | | | +-------+ +-----+---+---+ +---+---+ | | | +---+---+ + +-------+ +------+---+---+ | cyclobenzaprine (aka FLEXERIL) | Given | 10/16/19 | 5 mg | | | | tablet 5 mg 5 mg, oral, THREE | | 11 12:17 | | | | | TIMES DAILY NEEDED, Starting | | AM PST | | | | | 10/13/10 at 1223, Until Mon | | | | | | | 10/23/10 at 1604, muscle spasms | | | | | | + +-------+ +------+---+---+ +-------+ +------+---+---+ | Given | 10/15/19 | 5 mg | | | | | 11 6:53 | | | | | | PM PST | | | | +-------+ +------+---+---+ | Given | 10/14/19 | 5 mg | | | | | 11 1:41 | | | | | | AM PST | | | | +-------+ +------+---+---+ +---+---+ | | | +---+---+ + +---------+ +---+-------+---+ | dextrose 5%-NaCl 0.9%-KCl 20 | New Bag | 10/14/19 | | 125 | | | mEq/L IV intravenous, | | 11 11:30 | | mL/hr | | | CONTINUOUS, Starting 10/14/10 | | PM PST | | | | | at 1245, Until 10/23/10 at | | | | | | | 1604 | | | | | | + +---------+ +---+-------+---+ +---------+ +---+-------+---+ | New Bag | 10/14/19 | | 125 | | | | 11 3:28 | | mL/hr | | | | PM PST | | | | +---------+ +---+-------+---+ +---+---+ | | | +---+---+ + +-------+ +------+---+---+ | diazepam (aka VALIUM) injection | Given | 10/13/19 | 5 mg | | | | 5 mg 5 mg, intravenous, ONCE, | 2:25 | | | | | dose, 10/13/10 at 0230 | | AM PST | | | | + +-------+ +------+---+---+ +---+---+ | | | +---+---+ + +-------+ +-------+---+---+ | diphenhydrAMINE (aka BENADRYL) | Given | 10/23/19 | 25 mg | | | | capsule 25-50 mg 25-50 mg, oral, | | 11 8:51 | | | | | EVERY 4 HOURS NEEDED, | | AM PST | | | | | Starting 10/23/10 at 0118, | | | | | | | Until Sat10/23/10 at 1604, rash, | | | | | | | itching, nausea/vomiting, | | | | | | | allergic reaction | | | | | | + +-------+ +-------+---+---+ +-------+ +-------+---+---+ | Given | 10/23/19 | 25 mg | | | | | 11 1:25 | | | | | | AM PST | | | | +-------+ +-------+---+---+ +---+---+ | | | +---+---+ + +-------+ +--------+---+---+ | docusate sodium (aka COLACE) | Given | 10/23/19 | 100 mg | | | | capsule 100 mg 100 mg, oral, | | 11 8:16 | | | | | TWICE DAILY, First dose on Fri | | AM PST | | | | | 10/13/10 at 1230, Until | | | | | | | Discontinued | | | | | | + +-------+ +--------+---+---+ +-------+ +--------+---+---+ | Given | 10/19/19 | 100 mg | | | | | 11 8:26 | | | | | | PM PST | | | | +-------+ +--------+---+---+ | Given | 10/18/19 | 100 mg | | | | | 11 8:31 | | | | | | AM PST | | | | +-------+ +--------+---+---+ +---+---+ | | | +---+---+ + +-------+ +-------+---+---+ | enoxaparin (aka LOVENOX) | Given | 10/15/19 | 30 mg | | | | injection 30 mg 30 mg, | | 11 8:26 | | | | | subcutaneous, EVERY 12 HOURS, | | AM PST | | | | | First dose on 10/15/10 at | | | | | | | 0900, Until Discontinued | | | | | | + +-------+ +-------+---+---+ +---+---+ | | | +---+---+ + +-------+ +---------+---+---+ | fentaNYL citrate (PF) (aka | Given | 10/16/19 | 100 mcg | | | | SUBLIMAZE) injection 50-200 mcg | | 11 11:21 | | | | | 50-200 mcg, intravenous, | | AM PST | | | | | POSTPROCEDURE PRN, Starting Mon | | | | | | | 10/16/10 at 0907, Until Mon | | | | | | | 10/16/10 at 1122, moderate pain | | | | | | + +-------+ +---------+---+---+ + +---+ | | | + +---+ | fentaNYL citrate (PF) (aka | | | SUBLIMAZE) injection 1 dose, | | | Starting 10/16/10 at 0958, | | | Until Sat10/16/10 at 1121 | | + +---+ | | | + +---+ + +-------+ + +---+---+ | hydrocodone-acetaminophen (aka | Given | 10/18/19 | 1 tablet | | | | NORCO) 10-325 mg 1 Tab 1 tablet, | | 11 10:50 | | | | | oral, EVERY 4 HOURS NEEDED, | | AM PST | | | | | Starting 10/16/10 at 2143, | | | | | | | Until 10/18/10 at 1358, severe | | | | | | | pain | | | | | | + +-------+ + +---+---+ +-------+ + +---+---+ | Given | 10/18/19 | 1 tablet | | | | | 11 5:49 | | | | | | AM PST | | | | +-------+ + +---+---+ | Given | 10/18/19 | 1 tablet | | | | | 11 1:50 | | | | | | AM PST | | | | +-------+ + +---+---+ +---+---+ | | | +---+---+ + +-------+ + +---+---+ | HYDROcodone-acetaminophen (aka | Given | 10/23/19 | 1 tablet | | | | NORCO) 10-325 mg 1-2 Tab 1-2 | | 11 8:19 | | | | | tablet, oral, EVERY 4 HOURS | | AM PST | | | | | NEEDED, Starting 10/18/10 at | | | | | | | 1357, Until 10/23/10 at 1604, | | | | | | | severe pain | | | | | | + +-------+ + +---+---+ +-------+ + +---+---+ | Given | 10/22/19 | 1 tablet | | | | | 11 9:04 | | | | | | PM PST | | | | +-------+ + +---+---+ | Given | 10/22/19 | 1 tablet | | | | | 11 4:24 | | | | | | PM PST | | | | +-------+ + +---+---+ +---+---+ | | | +---+---+ + +-------+ +---------+---+---+ | hydrocodone-acetaminophen (aka | Given | 10/13/19 | 2 | | | | NORCO) 7.5-325 mg 1-2 Tab - | | 11 3:06 | tablets | | | | tablet, oral, EVERY 4 HOURS | | PM PST | | | | | NEEDED, Starting 10/13/10 at | | | | | | | 1225, Until 10/13/10 at 2247, | | | | | | | moderate pain | | | | | | + +-------+ +---------+---+---+ +---+---+ | | | +---+---+ + +-------+ + +---+---+ | hydrocodone-acetaminophen (aka | Given | 10/16/19 | 1 tablet | | | | VICODIN) 5-500 mg 1-2 Tab - | | 11 9:17 | | | | | tablet, oral, EVERY 4 HOURS | | PM PST | | | | | NEEDED, Starting 10/15/10 at | | | | | | | 1449, Until 10/16/10 at 2136, | | | | | | | moderate pain, severe pain | | | | | | + +-------+ + +---+---+ +-------+ + +---+---+ | Given | 10/16/19 | 1 tablet | | | | | 11 5:36 | | | | | | PM PST | | | | +-------+ + +---+---+ | Given | 10/16/19 | 1 tablet | | | | | 11 2:43 | | | | | | PM PST | | | | +-------+ + +---+---+ +---+---+ | | | +---+---+ + +-------+ +--------+---+---+ | HYDROmorphone (aka DILAUDID) | Given | 10/16/19 | 1.4 mg | | | | injection 0.2-0.5 mg 0.2-0.5 mg, | | 11 11:21 | | | | | intravenous, POSTPROCEDURE PRN, | | AM PST | | | | | Starting 10/16/10 at 0907, | | | | | | | Until Sat10/16/10 at 1122, | | | | | | | moderate pain | | | | | | + +-------+ +--------+---+---+ +---+---+ | | | +---+---+ + +-------+ +------+---+---+ | HYDROmorphone (aka DILAUDID) | Given | 10/13/19 | 1 mg | | | | injection 1 mg 1 mg, | | 11 7:40 | | | | | intravenous, EVERY 20 MINUTES | | AM PST | | | | | NEEDED, 3 doses, Starting [place] | | | | | | | 10/12/10 at 2134, Until Fri | | | | | | | 10/13/10 at 0740, moderate pain | | | | | | + +-------+ +------+---+---+ +-------+ +------+---+---+ | Given | 10/12/19 | 1 mg | | | | | 11 10:50 | | | | | | PM PST | | | | +-------+ +------+---+---+ | Given | 10/12/19 | 1 mg | | | | | 11 10:00 | | | | | | PM PST | | | | +-------+ +------+---+---+ + +---+ | | | + +---+ | HYDROmorphone (aka DILAUDID) | | | injection 1 dose, Starting Mon | | | 10/16/10 at 0958, Until Mon | | | 10/16/10 at 1121 | | + +---+ | | | + +---+ + +-------+ +--------+---+---+ | iohexol (aka OMNIPAQUE) | Given | 10/14/19 | 150 mL | | | | injection 150 mL 150 mL, | | 11 8:04 | | | | | intravenous, PROCEDURE ONCE, 1 | | PM PST | | | | | dose, 10/14/10 at 1915 | | | | | | + +-------+ +--------+---+---+ +---+---+ | | | +---+---+ + +-------+ +---+---+---+ | iohexol (aka OMNIPAQUE) | Given | 10/14/19 | | | | | injection oral, ONCE, 1 dose, | | 11 5:52 | | | | | 10/14/10 at 1615 | | PM PST | | | | + +-------+ +---+---+---+ +---+---+ | | | +---+---+ + +-------+ +-------+---+---+ | metoclopramide (aka REGLAN) | Given | 10/16/19 | 10 mg | | | | injection 10 mg 10 mg, | | 11 11:23 | | | | | intravenous, POSTPROCEDURE PRN, 1 | | AM PST | | | | | dose, Starting Sat10/16/10 at | | | | | | | 0907, Until Sat10/16/10 at 1122, | | | | | | | nausea/vomiting | | | | | | + +-------+ +-------+---+---+ + +---+ | | | + +---+ | metoclopramide (aka REGLAN) | | | injection 1 dose, Starting Mon | | | 10/16/10 at 1018, Until Mon | | | 10/16/10 at 1123 | | + +---+ | | | + +---+ + +-------+ +--------+---+---+ | metroNIDAZOLE (aka FLAGYL) | Given | 10/23/19 | 500 mg | | | | tablet 500 mg 500 mg, oral, | | 11 8:16 | | | | | THREE TIMES DAILY, First dose | | AM PST | | | | | (after last modification) on [facility] | | | | | | | 10/19/10 at 0900, Until | | | | | | | Discontinued | | | | | | + +-------+ +--------+---+---+ +-------+ +--------+---+---+ | Given | 10/22/19 | 500 mg | | | | | 11 9:04 | | | | | | PM PST | | | | +-------+ +--------+---+---+ | Given | 10/22/19 | 500 mg | | | | | 11 4:22 | | | | | | PM PST | | | | +-------+ +--------+---+---+ +---+---+ | | | +---+---+ + +-------+ +---------+---+---+ | multivitamin 1 Cap 1 capsule, | Given | 10/23/19 | 1 | | | | oral, DAILY, First dose on Sat | | 11 8:16 | capsule | | | | 10/14/10 at 1315, Until | | AM PST | | | | | Discontinued | | | | | | + +-------+ +---------+---+---+ +-------+ +---------+---+---+ | Given | 10/22/19 | 1 | | | | | 11 8:37 | capsule | | | | | AM PST | | | | +-------+ +---------+---+---+ | Given | 10/21/19 | 1 | | | | | 11 8:50 | capsule | | | | | AM PST | | | | +-------+ +---------+---+---+ +---+---+ | | | +---+---+ + +-------+ +-----+---+---+ | nafcillin IV 2 g 2 g, | Given | 10/23/19 | 2 g | | | | intravenous, EVERY 4 HOURS, First | | 11 7:57 | | | | | dose on [place] 10/19/10 at 1200, | | AM PST | | | | | Until Discontinued | | | | | | + +-------+ +-----+---+---+ +-------+ +-----+---+---+ | Given | 10/23/19 | 2 g | | | | | 11 3:52 | | | | | | AM PST | | | | +-------+ +-----+---+---+ | Given | 10/23/19 | 2 g | | | | | 11 12:26 | | | | | | AM PST | | | | +-------+ +-----+---+---+ +---+---+ | | | +---+---+ + +-------+ +---------+---+--------+ | nicotine (aka NICOTROL) 14 | Given | 10/16/19 | 1 patch | | Right | | mg/24 hr 1 Patch 1 patch, | | 11 3:34 | | | Arm | | transdermal, DAILY, First dose on | | PM PST | | | | | 10/14/10 at 1600, Until | | | | | | | Discontinued | | | | | | + +-------+ +---------+---+--------+ +-------+ +---------+---+---+ | Given | 10/15/19 | 1 patch | | | | | 11 5:13 | | | | | | PM PST | | | | +-------+ +---------+---+---+ | Given | 10/14/19 | 1 patch | | | | | 11 3:30 | | | | | | PM PST | | | | +-------+ +---------+---+---+ +---+---+ | | | +---+---+ + +-------+ +---+---+---+ | nystatin (aka MYCOSTATIN) | Given | 10/23/19 | | | | | powder topical, TWICE DAILY, | | 11 8:16 | | | | | First dose on Sat10/13/10 at | | AM PST | | | | | 2100, Until Discontinued | | | | | | + +-------+ +---+---+---+ +-------+ +---+---+---+ | Given | 10/22/19 | | | | | | 11 9:04 | | | | | | PM PST | | | | +-------+ +---+---+---+ | Given | 10/22/19 | | | | | | 11 8:37 | | | | | | AM PST | | | | +-------+ +---+---+---+ +---+---+ | | | +---+---+ + +-------+ +-------+---+---+ | omeprazole (aka PRILOSEC) | Given | 10/23/19 | 40 mg | | | | capsule 40 mg 40 mg, oral, | | 11 8:16 | | | | | DAILY, First dose on Sat10/13/10 | | AM PST | | | | | at 1230, Until Discontinued | | | | | | + +-------+ +-------+---+---+ +-------+ +-------+---+---+ | Given | 10/22/19 | 40 mg | | | | | 11 8:37 | | | | | | AM PST | | | | +-------+ +-------+---+---+ | Given | 10/21/19 | 40 mg | | | | | 11 8:50 | | | | | | AM PST | | | | +-------+ +-------+---+---+ +---+---+ | | | +---+---+ + +-------+ +------+---+---+ | ondansetron (aka ZOFRAN) | Given | 10/12/19 | 4 mg | | | | injection 4 mg 4 mg, | | 11 10:00 | | | | | intravenous, ONCE, 1 dose, [place] | | PM PST | | | | | 10/12/10 at 2145 | | | | | | + +-------+ +------+---+---+ +---+---+ | | | +---+---+ + +-------+ +------+---+---+ | ondansetron (aka ZOFRAN) | Given | 10/21/19 | 4 mg | | | | injection 4 mg 4 mg, | | 11 1:39 | | | | | intravenous, EVERY 12 HOURS | | PM PST | | | | | NEEDED, Starting Sat10/13/10 at | | | | | | | 1630, Until 10/23/10 at 1604, | | | | | | | nausea/vomiting | | | | | | + +-------+ +------+---+---+ +-------+ +------+---+---+ | Given | 10/20/19 | 4 mg | | | | | 11 8:09 | | | | | | PM PST | | | | +-------+ +------+---+---+ | Given | 10/16/19 | 4 mg | | | | | 11 10:15 | | | | | | AM PST | | | | +-------+ +------+---+---+ + +---+ | | | + +---+ | ondansetron (anisa SPARROW) | | | injection 1 dose, Starting Mon | | | 10/16/10 at 1018, Until Mon | | | 10/16/10 at 1015 | | + +---+ | | | + +---+ + +-------+ +-------+---+---+ | oxyCODONE immediate release | Given | 10/13/19 | 10 mg | | | | (aka ROXICODONE) tablet 10 mg 10 | | 11 2:25 | | | | | mg, oral, ONCE, 1 dose, Fri | | AM PST | | | | | 10/13/10 at 0130 | | | | | | + +-------+ +-------+---+---+ +---+---+ | | | +---+---+ + +-------+ +------+---+---+ | oxyCODONE immediate release | Given | 10/15/19 | 5 mg | | | | (aka ROXICODONE) tablet 5-10 mg | | 11 5:38 | | | | | 5-10 mg, oral, EVERY 4 HOURS | | AM PST | | | | | NEEDED, Starting 10/13/10 at | | | | | | | 2245, Until 10/15/10 at 1450, | | | | | | | moderate pain | | | | | | + +-------+ +------+---+---+ +-------+ +------+---+---+ | Given | 10/15/19 | 5 mg | | | | | 11 3:23 | | | | | | AM PST | | | | +-------+ +------+---+---+ | Given | 10/14/19 | 5 mg | | | | | 11 11:39 | | | | | | PM PST | | | | +-------+ +------+---+---+ +---+---+ | | | +---+---+ + +-------+ +------+---+---+ | polyethylene glycol (aka | Given | 10/18/19 | 17 g | | | | MIRALAX) powder 17 g 17 g, oral, | | 11 8:31 | | | | | DAILY NEEDED, Starting Sat | | AM PST | | | | | 10/14/10 at 1231, Until Mon | | | | | | | 10/23/10 at 1604, constipation, No | | | | | | | BM in past 3 days | | | | | | + +-------+ +------+---+---+ +-------+ +------+---+---+ | Given | 10/15/19 | 17 g | | | | | 11 9:18 | | | | | | PM PST | | | | +-------+ +------+---+---+ | Given | 10/14/19 | 17 g | | | | | 11 3:32 | | | | | | PM PST | | | | +-------+ +------+---+---+ +---+---+ | | | +---+---+ + +-------+ +--------+---+---+ | potassium chloride (aka | Given | 10/18/19 | 40 mEq | | | | KLOR-CON) packet 40 mEq 40 mEq, | | 11 11:38 | | | | | oral, ONCE, 1 dose, 10/18/10 | | AM PST | | | | | at 1130 | | | | | | + +-------+ +--------+---+---+ +---+---+ | | | +---+---+ + +-------+ +------+---+---+ | REMOVE nicotine patch DAILY, | Given | 10/18/19 | each | | | | First dose on 10/15/10 at | | 11 5:07 | | | | | 1600, Until Discontinued | | PM PST | | | | + +-------+ +------+---+---+ +-------+ +------+---+---+ | Given | 10/16/19 | each | | | | | 11 3:34 | | | | | | PM PST | | | | +-------+ +------+---+---+ | Given | 10/15/19 | each | | | | | 11 5:13 | | | | | | PM PST | | | | +-------+ +------+---+---+ +---+---+ | | | +---+---+ documented in this encounter
--- OUTSIDE RECORDS SUMMARY | ~2020-04-04 | XMS | Encounter Summary ---
Demographics + + + | Address | [address] | | | [place] [address] | + + + | Home Phone [...] Team Providers + +------+ + | Care Refining Equipment Operator Name | Role | Phone | [...] [facility] | | | | | [facility] | | | | | [facility] [phone] | | | | | | [address] [place], | | | | | | [place] [address] | | | | | | [phone] | | | | | | | [...] | | | | | | 09/25/2003 [id number] | | | | | | hours [...] | | + +---------+ + + | [facility] DEPARTMENT OF | | | | | [...] + + + | [facility] | [address] | [place] [address] | | | LABORATORY | | | [...] + + | [facility] DEPARTMENT | [address] | [place] [address] | | | PATHOLOGY | [address] | | | + + + + + | [place] [facility]PARTMENT OF | [address] | [place] [address] | | | PATHOLOGY | [address] [...] | + + + + + | [facility] | [address] | [place] [address] | | | PATHOLOGY | [address] | | | + + + + + | [facility] | [address] | [place] [address] | | | PATHOLOGY | [address] [...] | + + + + + | [facility] | [address] | [place] [address] | | | PATHOLOGY | [address] | | | + + + + + | [facility] | [address] | [place] [address] | | | PATHOLOGY | [address] | | | + + + + + documented in this encounter Visit Diagnoses Not on filedocumented in this encounter"
--- OUTSIDE RECORDS SUMMARY | ~2020-04-04 | XMS | Encounter Summary ---
Demographics + + + | Address | [address] | | | [place] [address] | + + + | Home Phone [...] Providers + +------+ + | Care Retail Asset Protection Specialist Name | Role | Phone | + +------+ + PCP | Unavailable | + +------+ + Encounter Details +--------+ + + + + | Date | Type | Department | Care Team | Description | +--------+ + + + + | 08/16/ | Procedure - | | Record, Operation [...] + + | OPERATION RECORD | | 08/16/2003 | | Results for this | | | | | | procedure are in the | | | | | | results section. | + +--------+ + + + documented in this encounter Results OPERATION RECORD (08/16/2003) + + | Transcriptions | + + | Interface, Story Teller In - 03/06/2006 1:10 AM PDT Date: | | 08/16/2003Attending Surgeon: Lloyd Garcia M.D.Pan Devulcanizer Helper(s): | | Benson Boone M.D.Preoperative Diagnosis:Right hip degenerative joint | | disease.Postoperative Diagnosis(es):Right hip degenerative joint disease.Procedures | | Performed:Cheilectomy (removal of osteophytes), right femoral head, and debridementof | | right acetabular labral tear.Anesthesia:General | | endotracheal.Complications:None.Specimens:None.Cultures:None.Indications:A 43-year-old | | morbidly obese woman with a long history of right hipdegenerative joint disease | | refractory now to intermittent cortisoneinjections with a large collar of osteophytes on | | the femoral head and painwith the extremes of motion and relatively well-preserved | | cartilage in theweightbearing region of the hip joint. An arthrogram was indicated for | | acheilectomy and for the effort to delay total hip arthroplasty until shewas older and | | hopefully weight less.Operative Findings:There was a large collar of osteophytes on the | | right femoral head with somemarked degenerative changes in the anterior femoral head | | below the equator.The articular cartilage of the weightbearing region of the femoral | | head hadonly grade 2 chondral changes. There was an acetabular labral tear in | | theanterior portion adjacent to the more extensive grade 3 or 4 DJD in theanterior | | aspect of the femoral head.Estimated Blood Loss:500 cc.Blood Replacement:3800 cc | | intravenous crystalloids and 500 cc of Hespan.Urine Output:320 cc per Arreaga drain to | | 8-Australian tubes to 1 median Hemovac suctioncanister.Postoperative Plan:Ancef for 24 | | hours, oxygen overnight, indomethacin 25 mg p.o. t.i.d. for 6weeks and possibly for 3 | | months if there is a significant amount ofheterotopic calcification on the 6-week | | x-rays. We will check AP andlateral hip x-rays right now and when she returns to clinic | | in 6 weeks.She will also have her graciela out in 2 weeks. She will use an | | abductionpillow while in bed. She will have anterior and posterior hip precautionsto be | | touchdown weightbearing. She will need GI ulcer prophylaxis with anH2 keven or a | | proton pump inhibitor. DVT prophylaxis will be withpneumatic compression devices and | | aspirin. She will be touchdownweightbearing on the right lower extremity. The Hemovac | | will be removedwhen there is less than 30 cc per 8 hour shift.Attending Surgeon | | Attestation:I certify I was present in the Operating Room and participated in allphases | | of the procedure.Procedure:The patient was identified in the holding area and brought to | | OperatingRoom #6 at [facility] Operating Room suite.She | | was placed supine on the OR table, and general endotracheal anesthesiawas administered. | | She was then placed right side up on a beanbag.Cefazolin 2 g was given as intravenous | | antibiotic prophylaxis, and axillaryroll was placed. Arreaga catheter having been placed | | previously, she washeld in position laterally with a safety strap in the suction | | beanbag, andthe perineum and thorax were isolated off plastic adhesive barrierU-drapes, | | and the leg was prepped with Betadine scrub and Betadine paintfrom the plastic adhesive | | barrier drapes to the level of the ankle and thendraped in a sterile fashion with | | stocking it over the foot for lateralapproaches to the hip.The posterior superior iliac | | spine, anterior superior iliac spine, andgreater trochanter were palpated. A | | curvilinear incision extending fromthe posterior superior iliac spine parallel to and | | just inferior to thevastus ridge below the greater trochanter and then curving back | | superiorlytowards the anterior superior iliac spine was made through skin andsuperficial | | dermis and with electrocautery to deep dermis and subcutaneousadipose tissue.We | | encountered gluteal fascia posteriorly and anteriorly the intervalbetween tensor fascia | | lv and sartorius. The gluteal fascia was split inline with the fibers of the gluteus | | brooklyn, and the anterior fascia wasdivided in the muscular interval between tensor | | fascia lv and sartorius.We came across the distal fibers of the tensor fascia lv and | | theiliotibial band transversely connecting the anterior and posteriorincisions.The | | posterior approach was a southern approach; the anterior approach was aSmith-Barros | | approach. We split the gluteus brooklyn in line with itsfibers upto the level of the | | second vascular trunk. We came mid downbetween rectus femoris and gluteus | | medius/brooklyn anteriorly, identifiedthe ascending branches of the lateral femoral | | circumflex artery, clipped,ligated, and divided tying the suture ligatures with 2-0 | | Vicryl.Hemostasis was further obtained, and electrocautery was needed. APean/Regi | | clamp was then placed under the gluteus medius and minimustendons and over the hip | | capsule under the greater trochanter, and weidentified the level of the osteotomy and | | drilled with a 3.2-mm drill bitto hold the eminence at the level of lesser trochanter, | | depth gauged themfirst 85 and 75 mm respectively, and then tapped them with a | | 6.5-mmcancellous cap and counter sunk the drill entry sites.We then used the Gigli saw | | to osteotomize the greater trochanter,extracapsular, down to the level of the vastus | | ridge, and reflected thissuperiorly; placed a Charnley initial hip retractor to hold | | this,retracted, and identified the hip capsule. A longitudinal capsulotomy wascarried | | out with a longitudinal limb anterolateral, and then it was teedoff the acetabulum | | taking great care to preserve the labrum on entry intothe hip joint as well as the | | articular cartilage. As we performed thecapsulotomy, we tacked the anterior and | | posterior limbs with 0 Vicryl inhorizontal mattress fashion for subsequent repair. The | | sciatic nerve hadbeen identified posteriorly, and the piriformis tendon was released. | | Carewas taken to avoid dissection on the superior aspect of the femoral neck.Once | | approximately 270 degrees of the capsule had been taken down fromanterior to posterior, | | we were able to gently distract the hip out of thesocket, inspect the osteophytes, and | | remove them with a combination ofrongeurs and curved osteotomes.The labral tear was | | identified anteriorly, and with some distraction, wewere able to trim this up as well. | | The hip joint was copiously irrigated.Drains were placed through separate stab wounds | | entering inferiorly, onelimb in the hip joint, the other limb deep to the abductor | | muscles. Thehip joint capsule was closed with the 0 Vicryl mattress sutures andaddition | | of [id number] 0 Vicryl. The fascial layer with [id number]-ls-bjbht 0 | | Vicryl sutures. Fadumo's fascia was closed with invertedand interrupted 2-0 Vicryl | | sutures, the subdermal with interrupted inverted3-0 Vicryl, and the skin with | | graciela.Xeroform, 4 x 4's, ABD, and Cover-Roll comprised the dressing. The patientwas | | undraped, reversed from anesthesia, and transferred to the hospital bedin stable and | | satisfactory condition having tolerated the procedure wellwithout apparent | | complications. All sponge, needle, and instrument countswere reported correct prior to | | leaving the room.Lloyd Garcia M.D.Construction Project Assistant, Orthopedics and | | Rehabilitation / [id number] / [id number] / [id number] / [id number]: 08/16/2003T: | | 08/16/2003cc:Ninfa Guillen M.D.[address] [place] [id number] | | | |The posterior superior iliac spine, anterior superior iliac spine, and | |greater trochanter were palpated. A curvilinear incision extending from | |the posterior superior iliac spine parallel to and just inferior to the | |vastus ridge below the greater trochanter and then curving back superiorly | |towards the anterior superior iliac spine was made through skin and | |superficial dermis and with electrocautery to deep dermis and subcutaneous | |adipose tissue. | | | |We encountered gluteal fascia posteriorly and anteriorly the interval | |between tensor fascia lv and sartorius. The gluteal fascia was split in | |line with the fibers of the gluteus brooklyn, and the anterior fascia was | |divided in the muscular interval between tensor fascia lv and sartorius. | |We came across the distal fibers of the tensor fascia lv and the | |iliotibial band transversely connecting the anterior and posterior | |incisions. | | | |The posterior approach was a southern approach; the anterior approach was a | |Clayton-Barros approach. We split the gluteus brooklyn in line with its | |fibers upto the level of the second vascular trunk. We came mid down | |between rectus femoris and gluteus medius/brooklyn anteriorly, identified | |the ascending branches of the lateral femoral circumflex artery, clipped, | |ligated, and divided tying the suture ligatures with 2-0 Vicryl. | | | |Hemostasis was further obtained, and electrocautery was needed. A | |Pean/Regi clamp was then placed under the gluteus medius and minimus | |tendons and over the hip capsule under the greater trochanter, and we | |identified the level of the osteotomy and drilled with a 3.2-mm drill bit | |to hold the eminence at the level of lesser trochanter, depth gauged them | |first 85 and 75 mm respectively, and then tapped them with a 6.5-mm | |cancellous cap and counter sunk the drill entry sites. | | | |We then used the Gigli saw to osteotomize the greater trochanter, | |extracapsular, down to the level of the vastus ridge, and reflected this | |superiorly; placed a Charnley initial hip retractor to hold this, | |retracted, and identified the hip capsule. A longitudinal capsulotomy was | |carried out with a longitudinal limb anterolateral, and then it was teed | |off the acetabulum taking great care to preserve the labrum on entry into | |the hip joint as well as the articular cartilage. As we performed the | |capsulotomy, we tacked the anterior and posterior limbs with 0 Vicryl in | |horizontal mattress fashion for subsequent repair. The sciatic nerve had | |been identified posteriorly, and the piriformis tendon was released. Care | |was taken to avoid dissection on the superior aspect of the femoral neck. | |Once approximately 270 degrees of the capsule had been taken down from | |anterior to posterior, we were able to gently distract the hip out of the | |socket, inspect the osteophytes, and remove them with a combination of | |rongeurs and curved osteotomes. | | | |The labral tear was identified anteriorly, and with some distraction, we | |were able to trim this up as well. The hip joint was copiously irrigated. | |Drains were placed through separate stab wounds entering inferiorly, one | |limb in the hip joint, the other limb deep to the abductor muscles. The | |hip joint capsule was closed with the 0 Vicryl mattress sutures and | |addition of cqsamv-pl-whvnp 0 Vicryl. The fascial layer with interrupted | |lsaszr-mr-jbusj 0 Vicryl sutures. Fadumo's fascia was closed with inverted | |and interrupted 2-0 Vicryl sutures, the subdermal with interrupted inverted | |3-0 Vicryl, and the skin with graciela. | | | |Xeroform, 4 x 4's, ABD, and Cover-Roll comprised the dressing. The patient | |was undraped, reversed from anesthesia, and transferred to the hospital bed | |in stable and satisfactory condition having tolerated the procedure well | |without apparent complications. All sponge, needle, and instrument counts | |were reported correct prior to leaving the room. | | | | | | | | | |Lloyd Garcia M.D. | |Construction Project Assistant, Orthopedics and Rehabilitation | | | | / | |[id number] / [id number] / [id number] / [id number] | | | | | | | |cc: | | | |Ninfa Guillen M.D. | |[address], | |[place] [address] | + + documented in this encounter Visit Diagnoses Not on filedocumented in this encounter"
--- OUTSIDE RECORDS SUMMARY | ~2020-04-04 | XMS | Encounter Summary ---
Demographics + + + | Address | [address] | | | [place] [address] | + + + | Home Phone [...] Team Providers + +------+ + | Care Kicking Machine Operator Name | Role | Phone [...] [facility] [address] | [address] [place] | | | | | [address] | [address] [place], [place] | | | | | Mailcode: [id number] | [id number] | | | | | [facility] | | | | | | [place], [place] | | | | | | [address] | | | | | | [phone] | | | +--------+ + + + [...] + + | [facility] DEPARTMENT OF | | | [...] + + | [facility] DEPARTMENT OF | | | | | RADIOLOGY | | | | + +---------+ + + documented in this encounter Visit Diagnoses Not on filedocumented in this encounter"
--- OUTSIDE RECORDS SUMMARY | ~2020-04-04 | XMS | Encounter Summary ---
Demographics + + + | Address | [address] | | | [place] [address] | + + + | Home Phone [...] Team Providers + +------+ + | Care Occupational Therapist Assistant Name | Role | Phone | + +------+ + | Marta Jenkins [employer] | PCP | | + +------+ + Encounter Details +--------+ + + + + | Date | Type | Department | Care Team | Description | +--------+ + + + + | 11/19/ | Documentati | [facility] | Clinic, Surgery | | | 2019 | on | [place] [facility] [address] | | | | | | [address] | | | | | | Mailcode: [place] | | | | | | [facility] | | | | | | [facility], [address] | | | | | | [facility] [place] | | | | | | [address] | | | | | | [phone] | | | +--------+ + + + [...]
--- OUTSIDE RECORDS SUMMARY | ~2020-04-04 | XMS | Encounter Summary ---
Demographics + + + | Address | [address] | | | [place] [address] | + + + | Home Phone | | + + + | Preferred Language | Unknown | + + + | Marital Status | | + + + | Advent Affiliation | [id number] | + + + | Race | Unknown | + + + | Ethnic Group | Unknown | + + + Author + + + | Author | [facility] | | | and [place] | + + + | Organization | [facility] [...] Team Providers + +------+ + | Care Assisted Living Associate Name | Role | Phone | [...] Description | +--------+---------+ + + + | 01/13/ | Office | [facility] | Ladarius Martínez PA | MAMADOU on CPAP (Primary | | 2012 | Visit | SLEEP DISORDER [address] | [address] | Dx) | | | | [address] [place] | [place], [place] | | | | | [place] [address] | [id number] | | | | | [phone] | | | +--------+---------+ + + + [...] + + + | Blood Pressure | 118/88 | 01/13/2013 11:07 AM | | | | | PDT | | + + + + + | Pulse | 97 | 01/13/2013 11:07 AM | | | | | PDT | | + + + + + | Temperature | - | - | | + + + + + | Respiratory Rate | 18 | 01/13/2013 11:07 AM | | | | | PDT | | + + + + + | Oxygen Saturation | - | - | | + + + + + | Inhaled Oxygen | - | - | | | Concentration | | | | + + + + + | Weight | 127.6 kg (281 lb 4.8 | 01/13/2013 11:07 AM | | | | oz) | PDT | | + + + + + | Height | - | - | | + + + + + | Body Mass Index | 48.29 | 03/06/2012 12:00 AM | | | | | PDT | | + + + + + documented in this encounter Progress Notes Maegan Munoz - 01/13/2013 11:02 AM PDT 01/13/13 [address] Depression Inventory-II Depression Score 27 - Moderate depression Insomnia Severity Index Insomnia Severity Index 6 Badger Sleepiness Scale Sitting and reading 0 Watching TV 1 Sitting, inactive in a public place (e.g. a theatre or a meeting) 0 As a passenger in a car for an hour without a break 2 Lying down to rest in the afternoon when circumstances permit 3 Sitting and talking to someone 0 Sitting quietly after a lunch without alcohol 0 In a car, while stopped for a few minutes in traffic 0 Total score 6 SF-36v2 Score PF 19.15 RP 17.67 BP 19.86 GH 32.91 VT 23.99 SF 18.67 RE 9.23 MH 10.58 PCS 27.75 MCS 12.9 Ladraius Hardwick PA - 10:30 AM PDT Subjective: Patient ID: Shelby Galdamez is a 52 y.o. female. HPI last office visit was: 01/17/2012 date of polysomnography: 09/18/2006 AHI: 57.1 O2%: 87% with minutes below 88% Machine type: Ravi obtained from: [facility] [place] pressure is: 9 cm CPAP download shows CPAP useage # nights: 142/142 213/336 average usage (all nights): 3.0 2.4 average usage (nights used): 4.3 3.9 AHI: n/a Shelby comes in for CPAP compliance. She says that she sleeps much better when she uses he r CPAP. It helps her relax and she is able to fall asleep more easily. She is also able to stay asleep for longer durations. She has had several nights that she hasn't used her CPAP during the last year. She was vannessa prised at how many, but says she is using it regularly unless she is in the hospital. Her c aregiver confirmed that she has been in the hospital a lot during the last year. We again discussed when she is able to replace her equipment. I gave her a handout that jennifer ows when her insurance will accept her replacing each item. There continue to be communicat ion problems between her and her insurance company about when she can get certain items. I have discussed the download in detail. This shows her inconsistencies and shows that her leaks are significant at times. It also appears to have a problem with the leak sensor, sh owing a full leak on many nights. This is a common problem with the [employer]. Review of Systems Objective: Physical Exam Assessment: Problem # 1: OBSTRUCTIVE SLEEP APNEA (ICD-327.23) This appears to be controlled with CPAP. She has done pretty well with her CPAP compliance , but feels that she would benefit from replacing her CPAP. Plan: She is to continue with CPAP indefinitely. We have faxed a prescription to [facility] for a Res Med S9 with a pressure range of 9-16 cm. I will follow up again in 2 months, sooner prn. Fifteen minutes were spent [id number], w ith the majority of time spent in counseling. Ladarius Martínez PA-C cc: Dr. Barry documented in this enco unter Miscellaneous Notes Miscellaneous - [facility] - 01/13/2013 12:00 AM PDT iscellaneous - [facility]BASE SC[facility] - 01/13/2013 12:00 AM PDTEle ctronically signed by Richmond Noble at 01/16/2013 11:17 AM PDTdocumented in this encounter Plan of Treatment +--------+---------+ + + + | Date | Type | Specialty | Care Team | Description | +--------+---------+ + + + | 05/23/ | Office | Pain Medicine | Xiang Sepulveda, | | | 2019 | Visit | | DO [address] | | | | | | [place] | | | | | | [id number] | | | | | | | | +--------+---------+ + + + documented as of this encounter Visit Diagnoses + + | Diagnosis | + + | MAMADOU on CPAP - Primary Obstructive sleep apnea (adult) (pediatric) | + + documented in this encounter"
--- OUTSIDE RECORDS SUMMARY | ~2020-04-04 | XMS | Encounter Summary ---
Demographics + + + | Address | [address] | | | [place] [address] | + + + | Home Phone [...] Team Providers + +------+ + | Care Credit Control Assistant Name | Role | Phone | + +------+ + PCP | Unavailable | + +------+ + Encounter Details +--------+ + + + + | Date | Type | Department | Care Team | Description | +--------+ + + + + | 10/21/ | Results | Orthopaedics at | Lloyd Garcia MD | | | 2003 | Only | [facility] [address] | | | | [address] | | | | | | Mailcode: [id number] | | | | | | [facility] | | | | | | [place], [place] | | | | | | [address] | | | | | | [phone] | | | +--------+ + + + [...] + + | DIFFERENTIAL | Routin | 01/06/2004 | | Results for this | | | e | 11:49 AM | | procedure are in the | | | | PDT | | results section. | + +--------+ + + + | CBC, WITH | Routin | 01/06/2004 | | Results for this | | DIFFERENTIAL | e | 11:49 AM | | procedure are in the | | | | PDT | | results section. | + +--------+ + + + | C-REACTIVE PROTEIN | Routin | 01/06/2004 | | Results for this | | | e | 11:49 AM | | procedure are in the | | | | PDT | | results section. | + +--------+ + + + | SEDIMENTATION RATE | Routin | 01/06/2004 | | Results for this | | | e | 11:49 AM | | procedure are in the | | | | PDT | | results section. | + +--------+ + + + | US LOWER EXT | Routin | 01/06/2004 | | Results for this | | NON-VASCULAR RT | e | 11:30 AM | | procedure are in the | | | | PDT | | results section. | + +--------+ + + + | US LOWER EXT | Routin | 12/23/2003 | | Results for this | | NON-VASCULAR RT | e | 12:50 PM | | procedure are in the | | | | PST | | results section. | + +--------+ + + + | DIFFERENTIAL | Routin | 12/23/2003 | | Results for this | | | e | 11:22 AM | | procedure are in the | | | | PST | | results section. | + +--------+ + + + | CBC, WITH | Routin | 12/23/2003 | | Results for this | | DIFFERENTIAL | e | 11:22 AM | | procedure are in the | | | | PST | | results section. | + +--------+ + + + | C-REACTIVE PROTEIN | Routin | 12/23/2003 | | Results for this | | | e | 11:22 AM | | procedure are in the | | | | PST | | results section. | + +--------+ + + + | SEDIMENTATION RATE | Routin | 12/23/2003 | | Results for this | | | e | 11:22 AM | | procedure are in the | | | | PST | | results section. | + +--------+ + + + | DIFFERENTIAL | Routin | 12/09/2003 | | Results for this | | | e | 10:57 AM | | procedure are in the | | | | PST | | results section. | + +--------+ + + + | CBC, WITH | Routin | 12/09/2003 | | Results for this | | DIFFERENTIAL | e | 10:57 AM | | procedure are in the | | | | PST | | results section. | + +--------+ + + + | C-REACTIVE PROTEIN | Routin | 12/09/2003 | | Results for this | | | e | 10:57 AM | | procedure are in the | | | | PST | | results section. | + +--------+ + + + | SEDIMENTATION RATE | Routin | 12/09/2003 | | Results for this | | | e | 10:57 AM | | procedure are in the | | | | PST | | results section. | + +--------+ + + + | C-REACTIVE PROTEIN | Routin | 12/02/2003 | | Results for this | | | e | 10:17 AM | | procedure are in the | | | | PST | | results section. | + +--------+ + + + | CBC ONLY | Routin | 12/02/2003 | | Results for this | | | e | 10:17 AM | | procedure are in the | | | | PST | | results section. | + +--------+ + + + | SEDIMENTATION RATE | Routin | 12/02/2003 | | Results for this | | | e | 10:17 AM | | procedure are in the | | | | PST | | results section. | + +--------+ + + + | ABSCESS BODY | Routin | 11/22/2003 | | Results for this | | DRAINAGE | e | 10:49 AM | | procedure are in the | | | | PST | | results section. | + +--------+ + + + | X-RAY PELVIS 1 VIEW | Routin | 11/18/2003 | | Results for this | | | e | 2:42 PM | | procedure are in the | | | | PST | | results section. | + +--------+ + + + | X-RAY HIP 2 VIEWS | Routin | 11/18/2003 | | Results for this | | RIGHT | e | 2:42 PM | | procedure are in the | | | | PST | | results section. | + +--------+ + + + | C-REACTIVE PROTEIN | Routin | 11/18/2003 | | Results for this | | | e | 2:12 PM | | procedure are in the | | | | PST | | results section. | + +--------+ + + + | CBC ONLY | Routin | 11/18/2003 | | Results for this | | | e | 2:12 PM | | procedure are in the | | | | PST | | results section. | + +--------+ + + + | SEDIMENTATION RATE | Routin | 11/18/2003 | | Results for this | | | e | 2:12 PM | | procedure are in the | | | | PST | | results section. | + +--------+ + + + | CT PELVIS W IV | Routin | 11/11/2003 | | Results for this | | CONTRAST | e | 11:50 AM | | procedure are in the | | | | PST | | results section. | + +--------+ + + + | INR | Urgent | 11/11/2003 | | Results for this | | | | 6:50 AM | | procedure are in the | | | | PST | | results section. | + +--------+ + + + | APTT (ACT. PART. | Urgent | 11/11/2003 | | Results for this | | THROMBO TIME) | | 6:50 AM | | procedure are in the | | | | PST | | results section. | + +--------+ + + + | X-RAY PELVIS 1 VIEW | Routin | 10/21/2003 | | Results for this | | | e | 2:37 PM | | procedure are in the | | | | PST | | results section. | + +--------+ + + + | X-RAY HIP 2 VIEWS | Routin | 10/21/2003 | | Results for this | | RIGHT | e | 2:36 PM | | procedure are in the | | | | PST | | results section. | + +--------+ + + + | DIFFERENTIAL | Routin | 10/21/2003 | | Results for this | | | e | 1:59 PM | | procedure are in the | | | | PST | | results section. | + +--------+ + + + | CBC, WITH | Routin | 10/21/2003 | | Results for this | | DIFFERENTIAL | e | 1:59 PM | | procedure are in the | | | | PST | | results section. | + +--------+ + + + | C-REACTIVE PROTEIN | Routin | 10/21/2003 | | Results for this | | | e | 1:59 PM | | procedure are in the | | | | PST | | results section. | + +--------+ + + + | SEDIMENTATION RATE | Routin | 10/21/2003 | | Results for this | | | e | 1:59 PM | | procedure are in the | | | | PST | | results section. | + +--------+ + + + documented in this encounter Results C-REACTIVE PROTEIN (01/06/2004 11:49 AM PDT) + +---------+ + + + | Component | Value | Ref Range | Performed | Pathologist | | | | | At | Signature | + +---------+ + + + | C-REACTIVE | 1.0 (H) | <0.9 mg/dl | | | | PROTEIN | | | | | + +---------+ + + + + + | Specimen | + + | | + + + + + + + | Performing | Address | City/State/Zipcode | Phone Number | | Organization | | | | + + + + + | [facility] | [address] | [place] [address] | | | LABORATORY | | | | + + + + + DIFFERENTIAL (01/06/2004 11:49 AM PDT) + +-------+ + + + | Component | Value | Ref Range | Performed | Pathologist | | | | | At | Signature | + +-------+ + + + | NEUTROPHIL | 61 | 50 - 70 % | [facility] | | | % | | | DEPARTMENT | | | | | | OF | | | | | | PATHOLOGY | | + +-------+ + + + | LYMPHOCYTE | 32 | 18 - 42 % | [facility] [...] | + + + + + | [facility] DEPARTMENT OF | [address] [facility] | [place] [address] | | | PATHOLOGY | [address] | | | + + + + + | [facility] DEPARTMENT OF | [address] [facility] | [place] [address] | | | PATHOLOGY | [address] | | | + + + + + CBC, WITH DIFFERENTIAL (01/06/2004 11:49 AM PDT) + +---------+ + + + | Component | Value | Ref Range | Performed | Pathologist | | | | | At | Signature | + +---------+ + + + | WHITE CELL | 9.1 | 4.4 - 11.0 K/cu | [facility] | | | COUNT | | mm | DEPARTMENT | | | | | | OF | | | | | | PATHOLOGY | | + +---------+ + + + | RED CELL | 4.13 | 3.65 - 5.10 | [facility] | | | COUNT | | M/cu mm | DEPARTMENT | | | | | | OF | | | | | | PATHOLOGY | | + +---------+ + + + | HEMOGLOBIN | 12.3 | 11.4 - 15.0 | [facility] | | | | | g/dL | DEPARTMENT | | | | | | OF | | | | | | PATHOLOGY | | + +---------+ + + + | HEMATOCRIT | 36.2 | 33.0 - 44.6 % | [facility] | | | | | | DEPARTMENT | | | | | | OF | | | | | | PATHOLOGY | | + +---------+ + + + | MCV | 87.7 | 80.0 - 96.0 fL | [facility] | | | | | | DEPARTMENT | | | | | | OF | | | | | | PATHOLOGY | | + +---------+ + + + | MCH | 29.7 | 29.0 - 32.0 pg | [facility] | | | | | | DEPARTMENT | | | | | | OF | | | | | | PATHOLOGY | | + +---------+ + + + | MCHC | 33.9 | 33.4 - 35.5 | [facility] | | | | | g/dL | DEPARTMENT | | | | | | OF | | | | | | PATHOLOGY | | + +---------+ + + + | RDW | 13.6 | 11.5 - 15.0 % | [facility] | | | | | | DEPARTMENT | | | | | | OF | | | | | | PATHOLOGY | | + +---------+ + + + | PLATELET | 427 (H) | 150 - 400 K/cu | [facility] | | | COUNT | | mm | DEPARTMENT | | | | | | OF | | | | | | PATHOLOGY | | + +---------+ + + + | MPV | 6.8 (L) | 7.4 - 10.4 fL | [...] | [facility] | [address] | [place] [address] | | | PATHOLOGY | [address] | | | + + + + + | [facility] | [facility] [address] | [place] [address] | | | PATHOLOGY | [address] | | | + + + + + SEDIMENTATION RATE (01/06/2004 11:49 AM PDT) + +-------+ + + + | Component | Value | Ref Range | Performed | Pathologist | | | | | At | Signature | + +-------+ + + + | SEDIMENTATI | 20 | <21 mm/hr | [facility] | | [...] DEPARTMENT OF | [address] | [place] [address] | | | PATHOLOGY | [address] | | | + + + + + | [facility] | [address] | [place] [address] | | | PATHOLOGY | [address] | | | + + + + + US LOWER EXT NON-VASULAR RT (01/06/2004 11:30 AM PDT) + + + + + + | Component | Value | Ref Range | Performed | Pathologist | | | | | At | Signature | + + + + + + | US LOWER | Radiologist 1: ADAMS, | | | | | EXT | NAKUL Gaona, | | | | | NON-VASULAR | M.D.-Radiologist 2: | | | | | RT | NAKUL LAMAS V., | | | | | | M.DJuan JoseSTUDY: Ultrasound of | | | | | | the right hip dated | | | | | | 01/06/04. COMPARISON: | | | | | | Ultrasound of the right | | | | | | hip dated 12/23/03 and | | | | | | 11/03/03. CLINICAL DATA:43 | | | | | | y.o. female status post | | | | | | multiple surgical | | | | | | procedures around | | | | | | theright hip with right | | | | | | hip fluid collection. | | | | | | Please evaluate | | | | | | forcurrent status. | | | | | | TECHNIQUE:High | | | | | | resolution ultrasound of | | | | | | the right hip and soft | | | | | | tissues wasperformed. | | | | | | FINDINGS: Again noted is | | | | | | the previously | | | | | | described fluid | | | | | | collectionadjacent to | | | | | | the right hip. In | | | | | | comparison to prior | | | | | | study, there isdecreased | | | | | | amount of fluid within | | | | | | the cystic component of | | | | | | thiscollection. There is | | | | | | a slight increase in | | | | | | the extent of the | | | | | | hypoechoic area,now | | | | | | measuring 6.4 x 3.1 x | | | | | | 5.4 cm. Drainage | | | | | | catheter is not | | | | | | discretely identified on | | | | | | this study. IMPRESSION: | | | | | | Slightly decreased | | | | | | amount of fluid within | | | | | | the cysticcomponent of | | | | | | right hip region fluid | | | | | | collection. The | | | | | | surroundinghypoechoic | | | | | | area, which most likely | | | | | | representing | | | | | | inflammatory | | | | | | changes,appears larger | | | | | | than prior study. | | | | | | Computed tomography | | | | | | scan of thisarea may | | | | | | provide further | | | | | | clarification of the | | | | | | overall extent of | | | | | | thisfluid collection. | | | | | | These results were | | | | | | communicated to Marybeth, | | | | | | [employer], | | | | | | attime of report. | | | | + + [...] | | | + +---------+ + + US LOWER EXT NON-VASULAR RT (12/23/2003 12:50 PM PST) + + + + + + | Component | Value | Ref Range | Performed | Pathologist | | | | | At | Signature | + + + + + + | US LOWER | Radiologist 1: KAREN, | | | | | EXT | RICHAR Kahn M.D.EXAM: | | | | | NON-VASULAR | Ultrasound over the | | | | | RT | right hip COMPARISON: | | | | | | November 03, 2003 | | | | | | FINDINGS: There has | | | | | | been interval decrease | | | | | | in size of theseptated, | | | | | | probable thick fluid | | | | | | collection deep to the | | | | | | surgicalscar over the | | | | | | right hip which now | | | | | | measures 3.1 x 3.6 x 1.3 | | | | | | cm(previously 10.0 x 4 | | | | | | cm). No new fluid | | | | | | collections or | | | | | | abscessesare identified. | | | | | | IMPRESSION: 1. | | | | | | Interval decrease in | | | | | | complex multi-septated | | | | | | fluid collectionover the | | | | | | right hip now measuring | | | | | | 3.1 x 3.6 x 1.3 cm. | | | | + + + [...] | + +---------+ + + C-REACTIVE PROTEIN (12/23/2003 11:22 AM PST) + +-------+ + + + | Component | Value | Ref Range | Performed | Pathologist | | | | | At | Signature | + +-------+ + + + | C-REACTIVE | 0.8 | <0.9 mg/dl | | | | PROTEIN | | | | | + +-------+ + + + + + | Specimen | + + | | + + + + + + + | Performing | Address | City/State/Zipcode | Phone Number | | Organization | | | | + + + + + | [facility] | [address] | [place] [address] | | | LABORATORY | | | | + + + + + SEDIMENTATION RATE (12/23/2003 11:22 AM PST) + +-------+ + + + | Component | Value | Ref Range | Performed | Pathologist | | | | | At | Signature | + +-------+ + + + | SEDIMENTATI | 20 | <21 mm/hr | [facility] | | [...] | + + + + + | [facility] DEPARTMENT OF | [address] | [place] [address] | | | PATHOLOGY | [address] | | | + + + + + | [facility] DEPARTMENT OF | [address] | [place] [address] | | | PATHOLOGY | [address] | | | + + + + + DIFFERENTIAL (12/23/2003 11:22 AM PST) + +---------+ + + + | Component | Value | Ref Range | Performed | Pathologist | | | | | At | Signature | + +---------+ + + + | NEUTROPHIL | 63 | 50 - 70 % | [facility] | | | % | | | DEPARTMENT | | | | | | OF | | | | | | PATHOLOGY | | + +---------+ + + + | LYMPHOCYTE | 28 | 18 - 42 % | [facility] [...] +---------+ + + + | NEUTROPHIL | 7.1 | 1.8 - 7.7 K/cu | [facility] | | | # | | mm | DEPARTMENT | | | | | | OF | | | | | | PATHOLOGY | | + +---------+ + + + | LYMPHOCYTE | 3.2 | 1.0 - 4.8 K/cu | [facility] | | | # | | mm | DEPARTMENT | | | | | | OF | | | | | | PATHOLOGY | | + +---------+ + + + | MONOCYTE # | 0.8 (H) | 0.1 - 0.6 K/cu | [...] | + + + + + | [facility] DEPARTMENT OF | [address] [address] | [place] [address] | | | PATHOLOGY | [address] | | | + + + + + | [facility] DEPARTMENT OF | [address] [facility] [address] | [place] [address] | | | PATHOLOGY | [address] | | | + + + + + CBC, WITH DIFFERENTIAL (12/23/2003 11:22 AM PST) + + + + + + | Component | Value | Ref Range | Performed | Pathologist | | | | | At | Signature | + + + + + + | WHITE CELL | 11.3 (H) | 4.4 - 11.0 K/cu | [facility] | | | COUNT | | mm | DEPARTMENT | | | | | | OF | | | | | | PATHOLOGY | | + + + + + + | RED CELL | 4.06 | 3.65 - 5.10 | [facility] | | | COUNT | | M/cu mm | DEPARTMENT | | | | | | OF | | | | | | PATHOLOGY | | + + + + + + | HEMOGLOBIN | 12.4 | 11.4 - 15.0 | [facility] | | | | | g/dL | DEPARTMENT | | | | | | OF | | | | | | PATHOLOGY | | + + + + + + | HEMATOCRIT | 35.5 | 33.0 - 44.6 % | [facility] [...] + + + + | MCH | 30.6 | 29.0 - 32.0 pg | [facility] | | | | | | DEPARTMENT | | | | | | OF | | | | | | PATHOLOGY | | + + + + + + | MCHC | 34.9 | 33.4 - 35.5 | [facility] | [...] + + + + | PLATELET | 389 | 150 - 400 K/cu | [facility] | | | COUNT | | mm | DEPARTMENT | | | | | | OF | | | | | | PATHOLOGY | | + + + + + + | MPV | 6.8 (L) | 7.4 - 10.4 fL | [...] | + + + + + | [facility] DEPARTMENT OF | [address] [facility] | [place] [address] | | | PATHOLOGY | [address] | | | + + + + + | [facility] DEPARTMENT OF | [address] [facility] | [place] [address] | | | PATHOLOGY | [address] | | | + + + + + C-REACTIVE PROTEIN (12/09/2003 10:57 AM PST) + +-------+ + + + | Component | Value | Ref Range | Performed | Pathologist | | | | | At | Signature | + +-------+ + + + | C-REACTIVE | 0.4 | <0.9 mg/dl | | | | PROTEIN | | | | | + +-------+ + + + + + | Specimen | + + | | + + + + + + + | Performing | Address | City/State/Zipcode | Phone Number | | Organization | | | | + + + + + | [facility] | [address] | [place] [address] | | | LABORATORY | | | | + + + + + SEDIMENTATION RATE (12/09/2003 10:57 AM PST) + +--------+ + + + | Component | Value | Ref Range | Performed | Pathologist | | | | | At | Signature | + +--------+ + + + | SEDIMENTATI | 27 (H) | <21 mm/hr | [facility] | [...] | + + + + + | [facility] | [address] | [place] [address] | | | PATHOLOGY | [address] | | | + + + + + | [facility] | [address] [facility] [address] | [place] [address] | | | PATHOLOGY | [address] | | | + + + + + DIFFERENTIAL (12/09/2003 10:57 AM PST) + +-------+ + + + | Component | Value | Ref Range | Performed | Pathologist | | | | | At | Signature | + +-------+ + + + | NEUTROPHIL | 57 | 50 - 70 % | [facility] [...] +-------+ + + + | NEUTROPHIL | 5.2 | 1.8 - 7.7 K/cu | [facility] | | | # | | mm | DEPARTMENT | | | | | | OF | | | | | | PATHOLOGY | | + +-------+ + + + | LYMPHOCYTE | 3.0 | 1.0 - 4.8 K/cu | [facility] [...] | + + + + + | [facility] DEPARTMENT OF | [address] | [place] [address] | | | PATHOLOGY | [address] | | | + + + + + | [facility] DEPARTMENT OF | [address] | [place] [address] | | | PATHOLOGY | [address] | | | + + + + + CBC, WITH DIFFERENTIAL (12/09/2003 10:57 AM PST) + + + + + + | Component | Value | Ref Range | Performed | Pathologist | | | | | At | Signature | + + + + + + | WHITE CELL | 9.1 | 4.4 - 11.0 K/cu | [facility] | | | COUNT | | mm | DEPARTMENT | | | | | | OF | | | | | | PATHOLOGY | | + + + + + + | RED CELL | 3.74 | 3.65 - 5.10 | [facility] | | | COUNT | | M/cu mm | DEPARTMENT | | | | | | OF | | | | | | PATHOLOGY | | + + + + + + | HEMOGLOBIN | 11.2 (L) | 11.4 - 15.0 | [facility] | | | | | g/dL | DEPARTMENT | | | | | | OF | | | | | | PATHOLOGY | | + + + + + + | HEMATOCRIT | 32.7 (L) | 33.0 - 44.6 % | [facility] | | | | | | DEPARTMENT | | | | | | OF | | | | | | PATHOLOGY | | + + + + + + | MCV | 87.2 | 80.0 - 96.0 fL | [facility] | | | | | | DEPARTMENT | | | | | | OF | | | | | | PATHOLOGY | | + + + + + + | MCH | 29.9 | 29.0 - 32.0 pg | [facility] | | | | | | DEPARTMENT | | | | | | OF | | | | | | PATHOLOGY | | + + + + + + | MCHC | 34.3 | 33.4 - 35.5 | [facility] | | | | | g/dL | DEPARTMENT | | | | | | OF | | | | | | PATHOLOGY | | + + + + + + | RDW | 16.3 (H) | 11.5 - 15.0 % | [facility] | | | | | | DEPARTMENT | | | | | | OF | | | | | | PATHOLOGY | | + + + + + + | PLATELET | 476 (H) | 150 - 400 K/cu | [...] | + + + + + | [facility] | [address] [facility] | [place] [address] | | | PATHOLOGY | [address] | | | + + + + + | [facility] DEPARTMENT OF | [facility] [facility] | [place] [address] | | | PATHOLOGY | [address] | | | + + + + + C-REACTIVE PROTEIN (12/02/2003 10:17 AM PST) + +-------+ + + + | Component | Value | Ref Range | Performed | Pathologist | | | | | At | Signature | + +-------+ + + + | C-REACTIVE | < 0.3 | <0.9 mg/dl | | | | PROTEIN | | | | | + +-------+ + + + + + | Specimen | + + | | + + + + + + + | Performing | Address | City/State/Zipcode | Phone Number | | Organization | | | | + + + + + | [facility] | [address] | [place] [address] | | | LABORATORY | | | | + + + + + SEDIMENTATION RATE (12/02/2003 10:17 AM PST) + +--------+ + + + | Component | Value | Ref Range | Performed | Pathologist | | | | | At | Signature | + +--------+ + + + | SEDIMENTATI | 31 (H) | <21 mm/hr | [facility] | [...] | + + + + + | [facility] | [address] [facility] [address] | [place] [address] | | | PATHOLOGY | [address] | | | + + + + + | [facility] DEPARTMENT OF | [address] [facility] | [place] [address] | | | PATHOLOGY | [address] | | | + + + + + CBC ONLY WITH PLATELET (12/02/2003 10:17 AM PST) + + + + + + | Component | Value | Ref Range | Performed | Pathologist | | | | | At | Signature | + + + + + + | WHITE CELL | 11.0 | 4.4 - 11.0 K/cu | [facility] | | | COUNT | | mm | DEPARTMENT | | | | | | OF | | | | | | PATHOLOGY | | + + + + + + | RED CELL | 4.21 | 3.65 - 5.10 | [facility] | | | COUNT | | M/cu mm | DEPARTMENT | | | | | | OF | | | | | | PATHOLOGY | | + + + + + + | HEMOGLOBIN | 12.5 | 11.4 - 15.0 | [facility] | | | | | g/dL | DEPARTMENT | | | | | | OF | | | | | | PATHOLOGY | | + + + + + + | HEMATOCRIT | 36.5 | 33.0 - 44.6 % | [facility] [...] + + + + | MCH | 29.8 | 29.0 - 32.0 pg | [facility] | | | | | | DEPARTMENT | | | | | | OF | | | | | | PATHOLOGY | | + + + + + + | MCHC | 34.3 | 33.4 - 35.5 | [facility] | | | | | g/dL | DEPARTMENT | | | | | | OF | | | | | | PATHOLOGY | | + + + + + + | RDW | 16.9 (H) | 11.5 - 15.0 % | [facility] | | | | | | DEPARTMENT | | | | | | OF | | | | | | PATHOLOGY | | + + + + + + | PLATELET | 472 (H) | 150 - 400 K/cu | [...] + + | [facility] DEPARTMENT OF | [address] | [place] [address] | | | PATHOLOGY | [address] | | | + + + + + | [facility] | [address] | [place] [address] | | | PATHOLOGY | [address] | | | + + + + + ABSCESS BODY DRAINAGE (11/22/2003 10:49 AM PST) + + + + + + | Component | Value | Ref Range | Performed | Pathologist | | | | | At | Signature | + + + + + + | ABSCESS | Radiologist 1: MARIEL, | | | | | BODY | Malcom DELVALLEPROCEDURE: | | | | | DRAINAGE | Percutaneous drainage of | | | | | | a hip abscess. PRIMARY | | | | | | HUMAN RESOURCES PROJECT MANAGER: Joao Wilde | | | | | | Malcom ANGIOGRAPHY | | | | | | ATTENDING: Benson | | | | | | Malcom Conte DIAGNOSIS: | | | | | | Abscess adjacent to | | | | | | right hip. FLUORO TIME: | | | | | | 1 min. INDICATION FOR | | | | | | PROCEDURE: This patient | | | | | | is status post right | | | | | | hipsurgery. She | | | | | | developed an abscess in | | | | | | the proximal right | | | | | | thighadjacent to the | | | | | | right hip. She | | | | | | presents for | | | | | | percutaneousdrainage. | | | | | | DESCRIPTION OF | | | | | | PROCEDURE: The fluid | | | | | | collection was localized | | | | | | withultrasound. The | | | | | | patient's proximal right | | | | | | thigh was prepped | | | | | | anddraped in a sterile | | | | | | fashion. Using local | | | | | | anesthesia andultrasound | | | | | | guidance the fluid | | | | | | collection was | | | | | | enteredpercutaneously | | | | | | and slightly cloudy | | | | | | serous fluid was | | | | | | aspirated. A12 [place]ic | | | | | | multi purpose drain was | | | | | | then inserted and its | | | | | | lockingpigtail reformed | | | | | | within the collection. | | | | | | The catheter was | | | | | | suturedin place and | | | | | | connected to gravity | | | | | | drainage. Specimens | | | | | | obtainedpercent for | | | | | | culture and sensitivity. | | | | | | There were no | | | | | | complications.I was | | | | | | present for and | | | | | | personally supervised | | | | | | the entire procedure. | | | | | | IMPRESSION: Successful | | | | | | catheter placement into | | | | | | a proximal rightthigh | | | | | | fluid collection. | | | | + + + [...] + +---------+ + + PELVIS 1 VIEW (11/18/2003 2:42 PM PST) + + + + + + | Component | Value | Ref Range | Performed | Pathologist | | | | | At | Signature | + + + + + + | PELVIS 1 | Radiologist 1: TRIPP | | | | | VIEW | Raegan HERRERA M.D.[facility] | | | | | | HIP-CENTERED PELVIS: | | | | | | 11/18/03RIGHT HIP: AP and | | | | | | lateral: 11/18/03 | | | | | | COMPARISON: 11/03/03 | | | | | | HISTORY: Prior | | | | | | osteophyte resection. | | | | | | Revision | | | | | | trochantericosteotomy | | | | | | fixation and subsequent | | | | | | hardware removal and | | | | | | rightlateral | | | | | | periarticular abscess | | | | | | which is demonstrated on | | | | | | the pelvicCT of | | | | | | 11/11/03. FINDINGS: There | | | | | | are postoperative | | | | | | findings from prior | | | | | | osteophyteresection as | | | | | | well as revision | | | | | | trochanteric osteotomy | | | | | | fixation andsubsequent | | | | | | hardware removal. | | | | | | There are some | | | | | | residual | | | | | | osteophytesalong the | | | | | | medial joint .. The | | | | | | joint space remains | | | | | | unchangedwithout any | | | | | | progressive joint space | | | | | | loss or | | | | | | periarticularosteoporosi | | | | | | s. There is no change | | | | | | in extensive | | | | | | heterotopicossification | | | | | | in the periarticular | | | | | | soft tissues. Lateral | | | | | | softtissue irregularity | | | | | | and gas is incompletely | | | | | | imaged and | | | | | | consistentwith soft | | | | | | tissue abscess. There | | | | | | is improved cortical | | | | | | ossificationof the | | | | | | proximal lateral femoral | | | | | | shaft in the area of | | | | | | priorpermeative lytic | | | | | | change. This suggests | | | | | | positive response | | | | | | totreatment of | | | | | | osteomyelitis. I see | | | | | | no progressive | | | | | | osteolysis oracute | | | | | | periosteal reaction. | | | | | | IMPRESSION: 1. | | | | | | Postoperative changes | | | | | | of prior trochanteric | | | | | | osteotomy andhardware | | | | | | removal. No change in | | | | | | periarticular | | | | | | heterotopicossification. | | | | | | 2. There is improved | | | | | | ossification of the | | | | | | prior permeative areasof | | | | | | the proximal femoral | | | | | | shaft consistent with | | | | | | positive host | | | | | | boneresponse to | | | | | | treatment osteomyelitis. | | | | | | I see no progressive | | | | | | bonedestruction .3. | | | | | | Lateral soft tissue | | | | | | irregularity and gas | | | | | | consistent with | | | | | | softtissue abscess. | | | | + + [...] +---------+ + + HIP 2 VIEWS RIGHT (11/18/2003 2:42 PM PST) + + + + + + | Component | Value | Ref Range | Performed | Pathologist | | | | | At | Signature | + + + + + + | HIP 2 VIEWS | Radiologist 1: TRIPP, | | | | | RIGHT | Raegan HERRERA M.D.AP | | | | | | HIP-CENTERED PELVIS: | | | | | | 11/18/03RIGHT HIP: AP and | | | | | | lateral: 11/18/03 | | | | | | COMPARISON: 11/03/03 | | | | | | HISTORY: Prior | | | | | | osteophyte resection. | | | | | | Revision | | | | | | trochantericosteotomy | | | | | | fixation and subsequent | | | | | | hardware removal and | | | | | | rightlateral | | | | | | periarticular abscess | | | | | | which is demonstrated on | | | | | | the pelvicCT of | | | | | | 11/11/03. FINDINGS: There | | | | | | are postoperative | | | | | | findings from prior | | | | | | osteophyteresection as | | | | | | well as revision | | | | | | trochanteric osteotomy | | | | | | fixation andsubsequent | | | | | | hardware removal. | | | | | | There are some | | | | | | residual | | | | | | osteophytesalong the | | | | | | medial joint .. The | | | | | | joint space remains | | | | | | unchangedwithout any | | | | | | progressive joint space | | | | | | loss or | | | | | | periarticularosteoporosi | | | | | | s. There is no change | | | | | | in extensive | | | | | | heterotopicossification | | | | | | in the periarticular | | | | | | soft tissues. Lateral | | | | | | softtissue irregularity | | | | | | and gas is incompletely | | | | | | imaged and | | | | | | consistentwith soft | | | | | | tissue abscess. There | | | | | | is improved cortical | | | | | | ossificationof the | | | | | | proximal lateral femoral | | | | | | shaft in the area of | | | | | | priorpermeative lytic | | | | | | change. This suggests | | | | | | positive response | | | | | | totreatment of | | | | | | osteomyelitis. I see | | | | | | no progressive | | | | | | osteolysis oracute | | | | | | periosteal reaction. | | | | | | IMPRESSION: 1. | | | | | | Postoperative changes | | | | | | of prior trochanteric | | | | | | osteotomy andhardware | | | | | | removal. No change in | | | | | | periarticular | | | | | | heterotopicossification. | | | | | | 2. There is improved | | | | | | ossification of the | | | | | | prior permeative areasof | | | | | | the proximal femoral | | | | | | shaft consistent with | | | | | | positive host | | | | | | boneresponse to | | | | | | treatment osteomyelitis. | | | | | | I see no progressive | | | | | | bonedestruction .3. | | | | | | Lateral soft tissue | | | | | | irregularity and gas | | | | | | consistent with | | | | | | softtissue abscess. | | | | + + [...] | + +---------+ + + C-REACTIVE PROTEIN (11/18/2003 2:12 PM PST) + +-------+ + + + | Component | Value | Ref Range | Performed | Pathologist | | | | | At | Signature | + +-------+ + + + | C-REACTIVE | 0.8 | <0.9 mg/dl | | | | PROTEIN | | | | | + +-------+ + + + + + | Specimen | + + | | + + + + + + + | Performing | Address | City/State/Zipcode | Phone Number | | Organization | | | | + + + + + | [facility] | [address] | [place] [address] | | | LABORATORY | | | | + + + + + SEDIMENTATION RATE (11/18/2003 2:12 PM PST) + +--------+ + + + | Component | Value | Ref Range | Performed | Pathologist | | | | | At | Signature | + +--------+ + + + | SEDIMENTATI | 39 (H) | <21 mm/hr | [facility] | [...] | + + + + + | [facility] DEPARTMENT OF | [address] | [place] [address] | | | PATHOLOGY | [address] | | | + + + + + | [facility] DEPARTMENT OF | [address] | [place] [address] | | | PATHOLOGY | [address] | | | + + + + + CBC ONLY WITH PLATELET (11/18/2003 2:12 PM PST) + + + + + + | Component | Value | Ref Range | Performed | Pathologist | | | | | At | Signature | + + + + + + | WHITE CELL | 10.7 | 4.4 - 11.0 K/cu | [facility] | | | COUNT | | mm | DEPARTMENT | | | | | | OF | | | | | | PATHOLOGY | | + + + + + + | RED CELL | 4.03 | 3.65 - 5.10 | [facility] | | | COUNT | | M/cu mm | DEPARTMENT | | | | | | OF | | | | | | PATHOLOGY | | + + + + + + | HEMOGLOBIN | 12.0 | 11.4 - 15.0 | [facility] | | | | | g/dL | DEPARTMENT | | | | | | OF | | | | | | PATHOLOGY | | + + + + + + | HEMATOCRIT | 35.0 | 33.0 - 44.6 % | [facility] [...] + + + + | MCH | 29.8 | 29.0 - 32.0 pg | [facility] | | | | | | DEPARTMENT | | | | | | OF | | | | | | PATHOLOGY | | + + + + + + | MCHC | 34.3 | 33.4 - 35.5 | [facility] | | | | | g/dL | DEPARTMENT | | | | | | OF | | | | | | PATHOLOGY | | + + + + + + | RDW | 16.8 (H) | 11.5 - 15.0 % | [facility] | | | | | | DEPARTMENT | | | | | | OF | | | | | | PATHOLOGY | | + + + + + + | PLATELET | 541 (H) | 150 - 400 K/cu | [facility] | | | COUNT | | mm | DEPARTMENT | | | | | | OF | | | | | | PATHOLOGY | | + + + + + + | MPV | 6.3 (L) | 7.4 - 10.4 fL | [facility] | | | | | | DEPARTMENT [...] | + + + + + | [facility] DEPARTMENT OF | [address] [facility] | [place] [address] | | | PATHOLOGY | [address] | | | + + + + + | [facility] DEPARTMENT OF | [address] [facility] | [place] [address] | | | PATHOLOGY | [address] | | | + + + + + CT PELVIS W CONTRAST (11/11/2003 11:50 AM PST) + + + + + + | Component | Value | Ref Range | Performed | Pathologist | | | | | At | Signature | + + + + + + | CT PELVIS W | Radiologist 1: TRIPP, | | | | | LUIS | Raegan HERRERA | | | | | | M.Gene.-Radiologist 2: | | | | | | Raegan ALMAGUER, | | | | | | M.D.STUDY: CT scan of | | | | | | the pelvis with IV | | | | | | Contrast CLINICAL | | | | | | history: The patient | | | | | | status post hardware | | | | | | removal ofthe right hip | | | | | | now with a complex fluid | | | | | | collection of the | | | | | | rightthigh and a greater | | | | | | trochanter seen by | | | | | | ultrasound. TECHNIQUE: | | | | | | Following the uneventful | | | | | | administration of 140 | | | | | | ccomnipaque 300 IV | | | | | | contrast transaxial 3 mm | | | | | | images of the | | | | | | pelviswere obtained from | | | | | | the iliac crest through | | | | | | the proximal femurs. | | | | | | COMPARISON: Hip x-ray | | | | | | November 03 2003 | | | | | | FINDINGS: The visualized | | | | | | intrapelvic organs are | | | | | | normal in size | | | | | | andappearance. Lateral | | | | | | to the proximal femur | | | | | | is an 8 x 6.2 cm | | | | | | rimenhancing fluid | | | | | | collection with mild | | | | | | surrounding fat | | | | | | stranding.There is mild | | | | | | atrophy of the gluteus | | | | | | [place]. Moderate | | | | | | heterotopic ossification | | | | | | is seen immediately | | | | | | superior tothe proximal | | | | | | femur. The greater | | | | | | trochanter is surgically | | | | | | absent.Joint space | | | | | | narrowing is present in | | | | | | the right hip with | | | | | | mildsubchondral | | | | | | sclerosis of the femoral | | | | | | head and acetabulum. | | | | | | Thereis no destruction | | | | | | of the articular cortex | | | | | | and no | | | | | | periostealreaction or | | | | | | focal destruction of the | | | | | | proximal right femur is | | | | | | seen. IMPRESSION: 1. | | | | | | Rim enhancing fluid | | | | | | collection consistent | | | | | | with an abscess inthe | | | | | | proximal right thigh. 2. | | | | | | Heterotopic | | | | | | ossification cephalad to | | | | | | the resected | | | | | | greatertrochanter. | | | | + + + + + + + + | Specimen | + + | | + + + +---------+ + + | Performing | Address | City/State/Zipcode | Phone Number | | Organization | | | | + +---------+ + + | [facility] DEPARTMENT OF | | | | | RADIOLOGY | | | | + +---------+ + + PROTHROMBIN TIME (11/11/2003 6:50 AM PST) + + + + + + | Component | Value | Ref Range | Performed | Pathologist | | | | | At | Signature | + + + + + + | INR | 1.07Comment: | 0.90 - 1.20 INR | [facility] | | | | PT INR Therapeutic | | DEPARTMENT | | | | ranges for full | | OF | | | | anticoagulation: | | PATHOLOGY | | | | INR for | | | | | | Venous Thromboembolism | | | | | | | | | | | | (2.0-3.0)INR | | | | | | INR for most | | | | | | patients with mech. | | | | | | valves (2.5-3.5)INR | | | | + + + + + + + + | Specimen | + + | | + + + + + + + | Performing | Address | City/State/Zipcode | Phone Number | | Organization | | | | + + + + + | [facility] DEPARTMENT OF | [address] | [place] [address] | | | PATHOLOGY | [address] | | | + + + + + | [facility] DEPARTMENT OF | [address] | [place] [address] | | | PATHOLOGY | [address] | | | + + + + + APTT (ACT. PART. THROMBO TIME) (11/11/2003 6:50 AM PST) + + + + + + | Component | Value | Ref Range | Performed | Pathologist | | | | | At | Signature | + + + + + + | APTT | 35.6Comment: | 26.0 - 36.0 | [facility] | | | | APTT Therapeutic Range | seconds | DEPARTMENT | | | | | | OF | | | | | | PATHOLOGY | | | | (75-120)sec | | | | | | Heparin levels | | | | | | of 0.35-0.7 U/mL | | | | + + + + + + + + | Specimen | + + | | + + + + + + + | Performing | Address | City/State/Zipcode | Phone Number | | Organization | | | | + + + + + | [facility] | [facility] [facility] | [place] [address] | | | PATHOLOGY | [address] | | | + + + + + | [facility] DEPARTMENT OF | [address] [facility] | [place] [address] | | | PATHOLOGY | [address] | | | + + + + + PELVIS 1 VIEW (10/21/2003 2:37 PM PST) + + + + + + | Component | Value | Ref Range | Performed | Pathologist | | | | | At | Signature | + + + + + + | PELVIS 1 | Radiologist 1: CHIKI, | | | | | VIEW | Malcom SAVAGESTUDY: Pelvis | | | | | | one view, AP, hip | | | | | | centered COMPARISON: | | | | | | 09/25/03 HISTORY: | | | | | | Infected ORIF status | | | | | | post hardware removal | | | | | | anddebridement of the | | | | | | right hip DISCUSSION: | | | | | | There is a marked | | | | | | increase in subcutaneous | | | | | | calcification about | | | | | | theright hip with | | | | | | progressive loss of | | | | | | definition of the | | | | | | greatertrochanter which | | | | | | is displaced | | | | | | superolaterally from the | | | | | | proximalfemur. | | | | | | Increased cortical | | | | | | destruction is noted | | | | | | around the screwtracts | | | | | | in the proximal femoral | | | | | | diaphysis. Medial | | | | | | joint spacenarrowing and | | | | | | spurring is present, | | | | | | right greater than left. | | | | | | IMPRESSION: 1. Marked | | | | | | increase in | | | | | | subcutaneous | | | | | | calcification about the | | | | | | righthip. 2. Probable | | | | | | osteomyelitis in the | | | | | | right greater trochanter | | | | | | andproximal femoral | | | | | | diaphysis. 3. Medial | | | | | | degenerative joint | | | | | | disease, right greater | | | | | | than left. | | | | + + + [...] +---------+ + + HIP 2 VIEWS RIGHT (10/21/2003 2:36 PM PST) + + + + + + | Component | Value | Ref Range | Performed | Pathologist | | | | | At | Signature | + + + + + + | HIP 2 VIEWS | Radiologist 1: CHIKI, | | | | | RIGHT | Malcom SAVAGESTUDY: Hip | | | | | | two views right, AP and | | | | | | an attempt at a lateral | | | | | | COMPARISON: 09/25/03 | | | | | | HISTORY: Infected ORIF | | | | | | status post hardware | | | | | | removal anddebridement | | | | | | of the right hip | | | | | | DISCUSSION: There is a | | | | | | marked increase in | | | | | | subcutaneous | | | | | | calcificationsurrounding | | | | | | the right greater | | | | | | trochanter since the | | | | | | prior study.The greater | | | | | | trochanter is displaced | | | | | | superolaterally and is | | | | | | notwell defined | | | | | | secondary to the | | | | | | overlapping | | | | | | calcifications.Prominent | | | | | | spurring is noted at | | | | | | the medial right hip | | | | | | joint andthere is | | | | | | associated medial | | | | | | narrowing of the right | | | | | | hand. Nofracture is | | | | | | present. However, | | | | | | there is some cortical | | | | | | destructionin a | | | | | | permeative lytic | | | | | | destructive pattern in | | | | | | the proximal | | | | | | femoraldiaphysis. This | | | | | | is in the location of | | | | | | the prior screw tracts. | | | | | | IMPRESSION: 1. Marked | | | | | | progression of | | | | | | subcutaneous | | | | | | calcification | | | | | | surroundingthe right | | | | | | greater trochanter. The | | | | | | greater trochanter is | | | | | | not aswell defined and | | | | | | there is a mild | | | | | | permeative pattern with | | | | | | mildcortical destruction | | | | | | in the proximal femoral | | | | | | diaphysis | | | | | | suggestingosteomyelitis. | | | | | | 2. Moderate medial | | | | | | [...] | | | + +---------+ + + SEDIMENTATION RATE (10/21/2003 1:59 PM PST) + +--------+ + + + | Component | Value | Ref Range | Performed | Pathologist | | | | | At | Signature | + +--------+ + + + | SEDIMENTATI | 67 (H) | <21 mm/hr | [facility] | [...] | + + + + + | [facility] | [address] [facility] | [place] [address] | | | PATHOLOGY | [address] | | | + + + + + | [facility] | [address] [facility] | [place] [address] | | | PATHOLOGY | [address] | | | + + + + + DIFFERENTIAL (10/21/2003 1:59 PM PST) + +---------+ + + + | Component | Value | Ref Range | Performed | Pathologist | | | | | At | Signature | + +---------+ + + + | NEUTROPHIL | 62 | 50 - 70 % | [facility] | | | % | | | DEPARTMENT | | | | | | OF | | | | | | PATHOLOGY | | + +---------+ + + + | LYMPHOCYTE | 28 | 18 - 42 % | [facility] [...] +---------+ + + + | NEUTROPHIL | 5.9 | 1.8 - 7.7 K/cu | [facility] [...] DEPARTMENT OF | [address] | [place] [address] | | | PATHOLOGY | [address] | | | + + + + + | [facility] DEPARTMENT OF | [address] | [place] [address] | | | PATHOLOGY | [address] | | | + + + + + CBC, WITH DIFFERENTIAL (10/21/2003 1:59 PM PST) + + + + + + | Component | Value | Ref Range | Performed | Pathologist | | | | | At | Signature | + + + + + + | WHITE CELL | 9.5 | 4.4 - 11.0 K/cu | [facility] | | | COUNT | | mm | DEPARTMENT | | | | | | OF | | | | | | PATHOLOGY | | + + + + + + | RED CELL | 3.52 (L) | 3.65 - 5.10 | [facility] | | | COUNT | | M/cu mm | DEPARTMENT | | | | | | OF | | | | | | PATHOLOGY | | + + + + + + | HEMOGLOBIN | 10.3 (L) | 11.4 - 15.0 | [facility] | | | | | g/dL | DEPARTMENT | | | | | | OF | | | | | | PATHOLOGY | | + + + + + + | HEMATOCRIT | 30.8 (L) | 33.0 - 44.6 % | [...] + + + + | MCH | 29.4 | 29.0 - 32.0 pg | [facility] [...] + + + + | RDW | 18.0 (H) | 11.5 - 15.0 % | [facility] | | | | | | DEPARTMENT | | | | | | OF | | | | | | PATHOLOGY | | + + + + + + | PLATELET | 592 (H) | 150 - 400 K/cu | [facility] | | | COUNT | | mm | DEPARTMENT | | | | | | OF | | | | | | PATHOLOGY | | + + + + + + | MPV | 6.2 (L) | 7.4 - 10.4 fL | [...] | [facility] OF | [address] | [place] [address] | | | PATHOLOGY | [address] | | | + + + + + | [facility] OF | [address] | [place] [address] | | | PATHOLOGY | [address] | | | + + + + + C-REACTIVE PROTEIN (10/21/2003 1:59 PM PST) + +-------+ + + + [...] + + + | [facility] | [address] | [place] [address] | | | LABORATORY | | | | + + + + + documented in this encounter Visit Diagnoses Not on filedocumented in this encounter"
--- OUTSIDE RECORDS SUMMARY | ~2020-04-04 | XMS | Encounter Summary ---
Demographics + + + | Address | [address] | | | [place] [address] | + + + | Home Phone [...] Team Providers + +------+ + | Care College Sports Coach Name | Role | Phone | + +------+ + | No Pcp Per Patient | PCP | Unavailable | + +------+ + Reason for Visit + + + | Reason | Comments | + + + | Refill Encounters | | + + + Encounter Details +--------+ + + + + | Date | Type | Department | Care Team | Description | +--------+ + + + + | 10/07/ | Telephone | Orthopaedics at | Kalyan Arias MD | Refill Encounters | | 2008 | | [facility] [address] | [address] | | | | | [address] | [address] | | | | | Mailcode: [id number] | [facility] [place] | | | | | Physician's [place] | [address] | | | | | [place], [place] | [phone] | | | | | [address] | | | | | | [phone] | | | +--------+ + + + [...]
--- OUTSIDE RECORDS SUMMARY | ~2020-04-04 | XMS | Encounter Summary ---
Demographics + + + | Address | [address] | | | [place] [address] | + + + | Home Phone [...] + + + | Author | [facility] | + + + | Organization | [facility] | + + + | [...] Providers + +------+ + | Care Information Security Specialist Name | Role | Phone | [...] as of this encounter Progress Notes Interface, Sisal Picker In - 04/28/2005 6:17 PM PDTClinic Date: [...] presence of her friend and my physician executive personal assistant and resident here in the Orthopedic [...] as soon as possible. Lloyd Garcia M.D. Drying Tumbler Operator of Orthopedics and Rehabilitation / [id number] / [id number] / [id number] / [id number] Tdocumented in this encounter Plan of Treatment Not on filedocumented as of this encounter Visit Diagnoses Not on filedocumented in this encounter
--- OUTSIDE RECORDS SUMMARY | ~2020-04-04 | XMS | Encounter Summary ---
Demographics + + + | Address | [address] | | | [place] [address] | + + + | Home Phone [...] Team Providers + +------+ + | Care Dye Range Tender Name | Role | Phone | [...] | | | | | [place], | | | | | | [place] [address] | | | +--------+ + + + [...]
--- OUTSIDE RECORDS SUMMARY | ~2020-04-04 | XMS | Encounter Summary ---
Demographics + + + | Address | [address] | | | [place] [address] | + + + | Home Phone [...] Team Providers + +------+ + | Care Servicenow Administrator Name | Role | Phone | + +------+ + | Travis Mcginnis MD | PCP | | + +------+ + Encounter Details +--------+ + + + + | Date | Type | Department | Care Team | Description | +--------+ + + + + | 12/06/ | Abstract | Infectious | Carolina Putnam | | | 2010 | | Diseases at [facility] | MEGAN Red[address] | | | | | [address] | [address] | | | | | Loop Physician's | [place], [place] | | | | | [place], 3rd floor | [address] | | | | | [place], [place] | [phone] | | | | | [address] | | | | | | [phone] | | | +--------+ + + + [...]
--- OUTSIDE RECORDS SUMMARY | ~2020-04-04 | XMS | Encounter Summary ---
Demographics + + + | Address | [address] | | | [place] [address] | + + + | Home Phone [...] Team Providers + +------+ + | Care Immunochemist Name | Role | Phone | + [...] | Transcriptions | + + | Interface, Kitchen Steward/Stewardess In - 02/27/2006 3:05 AM PDT Date: | | 09/27/2003Attending Surgeon: Lloyd Garcia M.D.Billing Specialist(s): | | Benson Boone M.D.Preoperative Diagnosis:Right hip [...] segments. Thevastus lateralis, gluteus medius, and fascia vl muscles were all | | viable.A medium [...] Boone M.D.Lloyd Garcia M.D.RT / | | [id number] / [id number] / [id number] / [id number]: 09/27/2003T: 09/28/2003 | |( ) which was [...] |in stable fashion. | | | |Dr. Llyod Garcia was present for this entire case. [...] | | | |RT / HS | |[id number] / [id number] / [id number] / [id number] | | | | | + + OPERATION RECORD (09/25/2003) + + | Transcriptions | + + | Interface, Kitchen Steward/Stewardess In - 02/27/2006 3:05 AM PDT Date: | | 09/25/2003Attending Surgeon: Lloyd Garcia M.D.Billing Specialist(s): | | MD Fox Gold, | | [...] | [facility]duction [facility] | | from [...] back to Operating Room #7 at [facility] | | [place].General endotracheal anesthesia was administered. Antibiotics werewithheld | [...] | procedure well without apparent complications.Lloyd Garcia M.D.Timber Harvester Operator, | | Orthopedics and Rehabilitation / [id number] / [id number] / [id number] / [id number]: 09/25/2003T: | | 09/26/2003 | |plate and [...] |brought back to Operating Room #7 at [facility]. | |General endotracheal anesthesia was administered. [...] been reopened for her trochanteric ORIF. Robin pus | |exuded. Deep cultures were sent. [...] | | | |Lloyd Garcia M.D. | |Timber Harvester Operator, Orthopedics and Rehabilitation | | | | / | |[id number] / [id number] / [id number] / [id number] | | | | | + + documented in this encounter Visit Diagnoses Not on filedocumented in this encounter"
--- OUTSIDE RECORDS SUMMARY | ~2020-04-04 | XMS | Encounter Summary ---
Demographics + + + | Address | [address] | | | [place] [address] | + + + | Home Phone | | + + + | Preferred Language | Unknown | + + + | Marital Status | Single | + + + | Episcopalian Affiliation | PRE | + + + [...] Team Providers + +------+ + | Care Hospice Care Sales Consultant Name | Role | Phone [...] as of this encounter Progress Notes Interface, Test Deskman In - 04/28/2005 6:17 PM PDTClinic Date: [...] see us. She instead went to the [facility] emergency department, where she was seen and [...] a chance to get back home to [place]. We will call her tomorrow and reiterate how important it is that we take care of this fluid collection in her hip and try to get her better. Dori Wong. Lloyd Garcia M.D. Attending Physician /jamil P [id number] signed by Interface, Test Deskman In at 04/28/2005 6:17 PM PDTdoc umented in this encounter Plan of Treatment Not on filedocumented as of this encounter Visit Diagnoses Not on filedocumented in this encounter"
--- OUTSIDE RECORDS SUMMARY | ~2020-04-04 | XMS | Encounter Summary ---
Demographics + + + | Address | [address] | | | [place] [address] | + + + | Home Phone [...] Team Providers + +------+ + | Care Ems Director Name | Role | Phone | [...] | [facility] at [facility] | [address] | | | | | [address] | [address] | | | | | Loop Physician's | [place], [place] | | | | | [place], [address]rd floor | [address] | | | | | [place], [place] | [phone] | | | | | [address] | | | | | | [phone] | | | +--------+ + + + [...]
--- OUTSIDE RECORDS SUMMARY | ~2020-04-04 | XMS | Encounter Summary ---
Demographics + + + | Address | [address] | | | [place] [address] | + + + | Home Phone [...] Providers + +------+ + | Care Head Bucker Name | Role | Phone | + +------+ + | Travis Mcginnis MD | PCP | | + +------+ + Encounter Details +--------+ + + + + | Date | Type | Department | Care Team | Description | +--------+ + + + + | 10/02/ | Hospital | Radiology/Imaging | Royce Durand, | | | 2019 | Encounter | Lab at [facility] [address] | [address] [facility] | | | | | [place]asmany Gil Mailcode: | [address] | | | | | [facility] | [place], [place] | | | | | [facility], | [address] | | | | | | [phone] | | | | | Floor [place], [place] | | | | | | [address] | | | | | | [phone] | | | +--------+ + + + [...] + + + +---------+ + + | [place] | Take by mouth. | | [...]
--- OUTSIDE RECORDS SUMMARY | ~2020-04-04 | XMS | Encounter Summary ---
Demographics + + + | Address | [address] | | | [place] [address] | + + + | Home Phone [...] Providers + +------+ + | Care Fiberglass Autobody Repairer Name | Role | Phone | [...] | | | Mailcode: [id number] | [facility] [place] | | | | | [facility] | [address] | | | | | [place], [place] | [phone] | | | | | [address] | | | | | | [phone] | | | +--------+ + + + [...]
--- OUTSIDE RECORDS SUMMARY | ~2020-04-04 | XMS | Encounter Summary ---
Demographics + + + | Address | [address] | | | [place] [address] | + + + | Home Phone [...] Team Providers + +------+ + | Care Fountain Brush Assembler Name | Role | Phone | [...] as of this encounter Progress Notes Interface, Sanitizer In - 06/19/2006 1:01 AM PDT [place] [facility] and [place] [address] [address], [place] [address] FAX Department of Orthopaedics, [employer] [id number] September 16, 2001 Kalyan Wu M.D. Department of Orthopedics and Rehabilitation [facility] RE: SHELBY GALDAMEZ MR #: [id number] DOS: 09/16/2001 Dear Nasir: I am referring [...] contact me directly. Sincerely, Lloyd Garcia M.D. Safety Manager Orthopedics and Rehabilitation / [id number] / [id number] / [id number] / [id number] C: 10/02/2001 [facility] cc: Helio Mann M.D. P.OJuan Jose [address] [id number] signed by Interface, Sanitizer In at 06/19/2006 1: 01 AM PDTdocumented in this encounter Plan of Treatment Not on filedocumented as of this encounter Visit Diagnoses Not on filedocumented in this encounter"
--- OUTSIDE RECORDS SUMMARY | ~2020-04-04 | XMS | Encounter Summary ---
Demographics + + + | Address | [address] | | | [place] [address] | + + + | Home Phone [...] Team Providers + +------+ + | Care Performance Manager Name | Role | Phone | [...] | | | | due to | [place], [place] | [place] | | | | | unspecified | [address] | [address] | | | | | device, | Phone: | Phone: | | | | | implant, and | [phone] | [phone] | | | | | graft | Fax: | Fax: | | | | | | [phone] | [phone] | +--------+--------+ + + + + Encounter [...] | | | | [address] | [place] [address] | internal joint | | | | Physician's | [phone] | prosthesis (HCC) | | | | Pavilion, 4th floor | | (Primary Dx) | | | | [place], [place] | | | | | | [address] | | | | | | [phone] | | | +--------+---------+ + + + [...] CLINIC FOLLOW UP Referrring Physician: TYRONE COLBY [facility] Orthopedics [address] [place] [address] Primary Care Physician: [address] [address] Ms. Galdamez presents to Infectious Diseases Clinic [...] procedure. Indications : Staphylococcus Aureus Joint Infection [place]-3 Fatty Acids-Vitamin E (FISH OIL) 1,000 mg [...] above discussion. ALBINO TERESA MD INFECTIOUS DISEASES [address] [place] [address] Mailcode: L[address] [address] documented in this e ncounter [...]
--- OUTSIDE RECORDS SUMMARY | ~2020-04-04 | XMS | Encounter Summary ---
Demographics + + + | Address | [address] | | | [place] [address] | + + + | Home Phone [...] Team Providers + +------+ + | Care E Commerce Merchant Name | Role | Phone | + [...] Pavilion | | | | | | [place], [place] | | | | | | [address] | | | | | | [phone] | | | +--------+ + + + [...]
--- OUTSIDE RECORDS SUMMARY | ~2020-04-04 | XMS | Encounter Summary ---
Demographics + + + | Address | [address] | | | [place] [address] | + + + | Home Phone [...] Team Providers + +------+ + | Care Key Attendant Name | Role | Phone | [...] Procedures | Pankaj Bergman | Roxann Ayala [facility] | | | | | CT INJ | Roxann Ayala [facility], | | | | | SACROILIAC | [place], [place] | 10th Floor | | | | | JOINT | [address] | [place], [place] | | | | | W/NEEDLE | Phone: | [address] | | | | | PLCMT | [phone] | Phone: | | | | | | Fax: | [phone] | | | | | | [phone] | Fax: | | | | | | | [phone] | +--------+--------+ + + + + Reason [...] | | | | | | | [address] | | | | | | | [address] | | | | | | | [place], | | | | | | | [place] | | | | | | | [address] | | | | | | | Phone: | | | | | | | [phone] | | | | | | | Fax: | | | | | | | [phone] | +--------+--------+ + + + + Encounter [...] | | | | Mailcode: [id number] | [place], [place] | | | | | [facility] | [address] | | | | | [place], [place] | [phone] | | | | | [address] | | | | | | [phone] | | | +--------+---------+ + + + [...] SACROILIAC JOINT W/NEEDLE PLCMT (10/12/2009 10:08 AM [facility]) + + + + + + [...] | | | | | | the retail support associate. | | | | | | Director Of Creative Services imaging was | | | | | [...]
--- OUTSIDE RECORDS SUMMARY | ~2020-04-04 | XMS | Encounter Summary ---
Demographics + + + | Address | [address] | | | [place] [address] | + + + | Home Phone [...] Team Providers + +------+ + | Care Web Site Administrator Name | Role | Phone | [...] | | | | | (sacroiliac) | [facility], | | | | | joint | Rd | 10th Floor | | | | | inflammation | [place], [place] | [place], [place] | | | | | ([facility]) | [address] | [address] | | | | | Procedures | | Phone: | | | | | CT INJ | | [phone] | | | | | SACROILIAC | | Fax: | | | | | JOINT | | [phone] | | | | | W/NEEDLE | | | | | | | PLCMT | | | +--------+--------+ + + + + Encounter Details +--------+ + + + + | Date | Type | Department | Care Team | Description | +--------+ + + + + | 03/22/ | Hospital | Diagnostic Imaging | | | | 2009 | Encounter | Services at [facility] [place] | | | | | | [address] | | | | | | Roxann [place]OUR | | | | | | [address] | | | | | | [place], [place] | | | | | | [address] | | | | | | [phone] | | | +--------+ + + + [...] | + + + +---------+--------+ + | [place]-3 Fatty | Take by mouth. | | [...] None. | | | | | | Director Religious Education: Dr. Moss, | | | | | | vice president consulting services. | | | | | | Director Of Land Acquisition: | | | | | | Sue, [...] | | | | | operations support manager. Claims Correspondence Clerk | | | | | | imaging [...]
--- OUTSIDE RECORDS SUMMARY | ~2020-04-04 | XMS | Encounter Summary ---
Demographics + + + | Address | [address] | | | [place] [address] | + + + | Home Phone [...] + + + | Casandra Smith | [place] | [place] | | + + + + + Care Team Providers + +------+ + | Care Dye Operator Name | Role | Phone | [...] as of this encounter Progress Notes Interface, Account Development Associate In - 04/28/2005 7:30 PM PDTClinic Date: [...] signs of recurrent infection. Lloyd Garcia M.D. Safety Clothing And Equipment Developer Orthopedics and Rehabilitation / [id number] / [id number] / [id number] / [id number] cc: Ninfa Guillen M.D. [address] [place], [place] [id number] signed by Interface, Account Development Associate In at 04/28/2005 7:3 0 PM PDTdocumented in this encounter Plan of Treatment Not on filedocumented as of this encounter Visit Diagnoses Not on filedocumented in this encounter"
--- OUTSIDE RECORDS SUMMARY | ~2020-04-04 | XMS | Encounter Summary ---
Demographics + + + | Address | [address] | | | [place] [address] | + + + | Home Phone [...] Team Providers + +------+ + | Care Drawer In Hand Name | Role | Phone | [...] | | | | | or | [address] | Pavilion | | | | | localized, | | [place], [place] | | | | | pelvic | | [address] | | | | | region and | | Phone: | | | | | thigh | | [phone] | | | | | Intervertebr | | Fax: | | | | | al lumbar | | [phone] | | | | | disc | [...] | [facility] [address] | [address] [facility] | Hip (Primary Dx) | | | | [address] | [address] [place], | | | | | Mailcode: [id number] | [place] [address] | | | | | [facility] | | | | | | [place], [place] | | | | | | [address] | | | | | | [phone] | | | +--------+---------+ + + + [...]
--- OUTSIDE RECORDS SUMMARY | ~2020-04-04 | XMS | Encounter Summary ---
Demographics + + + | Address | [address] | | | [place] [address] | + + + | Home Phone [...] Team Providers + +------+ + | Care Tile Finisher Name | Role | Phone | + [...] W | | | | ON | [facility] 4th Floor [address] | | | | | [address] | Road [place], [place] | | | | | Mailcode: CH4S | [address] | | | | | [facility] | | | | | | and Healing, | | | | | | Building 1,4th Floor | | | | | | [place], [place] | | | | | | [address] | | | | | | [phone] | | | +--------+ + + + [...]
--- OUTSIDE RECORDS SUMMARY | ~2020-04-04 | XMS | Encounter Summary ---
Demographics + + + | Address | [address] | | | [place] [address] | + + + | Home Phone [...] Team Providers + +------+ + | Care Portable Track Line Marker Name | Role | Phone | + [...] | Diseases at [facility] | MEGAN Reddy [address] | | | | | [address] | [address] | | | | | Loop Physician's | [place], [place] | | | | | [place], 3rd floor | [address] | | | | | [place], [place] | [phone] | | | | | [address] | | | | | | [phone] | | | +--------+ + + + [...] CELL | 7.8 | K/cu mm | [facility] | | | COUNT | | | MEDICAL | | | | | | [facility] - | | | | | | [place] | | + +-------+ + + + | RED CELL | 4.86 | M/cu mm | [facility] | | | COUNT | | | MEDICAL | | | | | | [facility] - | | | | | | [place] | | + +-------+ + + + | HEMOGLOBIN | 14.1 | 12.1999 - 15 | [facility] | | | | | g/dL | MEDICAL | | | | | | [facility] - | | | | | | [place] | | + +-------+ + + + | HEMATOCRIT | 41.2 | % | [facility] | | | | | | [facility]ICAL | | | | | | [facility] - | | | | | | [place] | | + +-------+ + + + | MCV | 85 | fL | [facility] | | | | | | MEDICAL | | | | | | [facility] - | | | | | | [place] | | + +-------+ + + + | MCH | 29 | pg | [facility] | | | | | | MEDICAL | | | | | | [facility] - | | | | | | [place] | | + +-------+ + + + | MCHC | 34.2 | g/dL | [facility] | | | | | | [facility] | | | | | | [facility] - | | | | | | [place] | | + +-------+ + + + | PLATELET | 367 | K/cu mm | [facility] | | | COUNT | | | MEDICAL | | | | | | [facility] - | | | | | | [place] | | + +-------+ + + + | NEUTROPHIL | 59.2 | % | [facility] | | | % | | | MEDICAL | | | | | | [facility] - | | | | | | [place] | | + +-------+ + + + | LYMPHOCYTE | 32.5 | % | [facility] | | | % | | | MEDICAL | | | | | | [facility] - | | | | | | [place] | | + +-------+ + + + | MONOCYTE % | 6.1 | % | [facility] | | | | | | [facility]ICAL | | | | | | [facility] - | | | | | | [place] | | + +-------+ + + + | EOS % | 1.5 | % | [facility] | | | | | | MEDICAL | | | | | | [facility] - | | | | | | [place] | | + +-------+ + + + | BASO % | 0.7 | % | [facility] | | | | | | [facility]ICAL | | | | | | [facility] - | | | | | | [place] | | + +-------+ + + + | RDW | 14.5 | % | [facility] | | | | | | [facility]ICAL | | | | | | [facility] - | | | | | | [place] | | + +-------+ + + + | MPV | | fL | [facility] | | | | | | [facility] | | | | | | [facility] - | | | | | | [place] | | + +-------+ + + + | NEUTROPHIL | 4.6 | K/cu mm | [facility] | | | # | | | [facility]ICAL | | | | | | [facility] - | | | | | | [place] | | + +-------+ + + + | LYMPHOCYTE | 2.5 | K/cu mm | [facility] | | | # | | | MEDICAL | | | | | | [facility] - | | | | | | [place] | | + +-------+ + + + | MONOCYTE # | 0.5 | K/cu mm | [facility] | | | | | | [facility] | | | | | | [facility] - | | | | | | [place] | | + +-------+ + + + | EOS # | 0.1 | K/cu mm | [facility] | | | | | | [facility]ICAL | | | | | | [facility] - | | | | | | [place] | | + +-------+ + + + | BASO # | 0.1 | | [facility] | | | | | | [facility] | | | | | | [facility] - | | | | | | [place] | | + +-------+ + + + | PHOSPHORUS, | 3.9 | mg/dL | [facility] | | | PLASMA | | | [...] | + + + + + | [facility] | [address] | [place] [address] | | | [facility] - [place] | | | | + + + + + COMPLETE METABOLIC SET (NA,K,CL,CO2,BUN,CREAT,GLUC,CA,AST,ALT,BILI TOTAL,ALK PHOS,ALB,PROT TOTAL) (03/01/2011 9:55 AM PDT) + +-------+ + + + | Component | Value | Ref Range | Performed | Pathologist | | | | | At | Signature | + +-------+ + + + | GLUCOSE, | 106 | 65 - 110 mg/dL | [facility] | | | PLASMA | | | MEDICAL | | | (LAB) | | | CENTER - | | | | | | [place] | | + +-------+ + + + | BUN, PLASMA | 10 | mg/dL | [facility] | | | (LAB) | | | MEDICAL | | | | | | [facility] - | | | | | | [place] | | + +-------+ + + + | CREATININE | 0.7 | mg/dL | [facility] | | | PLASMA | | | MEDICAL | | | (LAB) | | | CENTER - | | | | | | [place] | | + +-------+ + + + | TOTAL | 7.4 | g/dL | [facility] | | | PROTEIN, | | | MEDICAL | | | PLASMA | | | CENTER - | | | (LAB) | | | [place] | | + +-------+ + + + | ALBUMIN, | 3.8 | g/dL | [facility] | | | PLASMA | | | MEDICAL | | | (LAB) | | | CENTER - | | | | | | [place] | | + +-------+ + + + | CALCIUM, | 9.2 | mg/dL | [facility] | | | PLASMA | | | MEDICAL | | | (LAB) | | | CENTER - | | | | | | [place] | | + +-------+ + + + | BILIRUBIN | 0.3 | Transcutaneous | [facility] | | | TOTAL | | Bilirubinometer | MEDICAL | | | | | | CENTER - | | | | | | [place] | | + +-------+ + + + | ALK PHOS | 72 | U/L | [facility] | | | | | | MEDICAL | | | | | | [facility]ENTER - | | | | | | [place] | | + +-------+ + + + | AST(SGOT) | 10 | U/L | [facility] | | | | | | MEDICAL | | | | | | [facility] - | | | | | | [place] | | + +-------+ + + + | SODIUM, | 141 | mmol/L | [facility] | | | PLASMA | | | MEDICAL | | | (LAB) | | | CENTER - | | | | | | [place] | | + +-------+ + + + | POTASSIUM, | 4.4 | mmol/L | [facility] | | | PLASMA | | | MEDICAL | | | (LAB) | | | CENTER - | | | | | | [place] | | + +-------+ + + + | CHLORIDE, | 107 | mmol/L | [facility] | | | PLASMA | | | MEDICAL | | | (LAB) | | | CENTER - | | | | | | [place] | | + +-------+ + + + | TOTAL CO2, | 30 | mmol/L | [facility] | | | PLASMA | | | MEDICAL | | | (LAB) | | | CENTER - | | | | | | [place] | | + +-------+ + + + | ALT (SGPT) | 14 | U/L | [facility] | | | | | | MEDICAL | | | | | | [facility]ENTER - | | | | | | [place] | | + +-------+ + + + | SEDIMENTATI | 29 | mm/hr | [facility] | | | ON RATE | | [...] | + + + + + | [facility] | [address] | [place] [address] | | | [facility] - [place] | | | | + + + + + documented in this encounter Visit Diagnoses Not on filedocumented in this encounter"
--- OUTSIDE RECORDS SUMMARY | ~2020-04-04 | XMS | Encounter Summary ---
Demographics + + + | Address | [address] | | | [place] [address] | + + + | Home Phone [...] Team Providers + +------+ + | Care Steel Unloader Name | Role | Phone | + +------+ + | Travis Mcginnis MD | PCP | | + +------+ + Encounter Details +--------+ + + + + | Date | Type | Department | Care Team | Description | +--------+ + + + + | 02/20/ | Handtools Repairer | Orthopaedics at | Kalyan Arias MD | Hip replacement | | 2009 | | [facility] [address] | [address] | (Primary Dx) | | | | [address] | [facility] | | | | | Mailcode: PV430 | [facility] [place] | | | | | [facility] | [address] | | | | | [place], [place] | [phone] | | | | | [address] | | | | | | [phone] | | | +--------+ + + + [...]
--- OUTSIDE RECORDS SUMMARY | ~2020-04-04 | XMS | Encounter Summary ---
Demographics + + + | Address | [address] | | | [place] [address] | + + + | Home Phone | | + + + | Preferred Language | Unknown | + + + | Marital Status | | + + + | Bahai Affiliation | 1076 | + + + [...] Providers + +------+ + | Care Body Shop Supervisor Name | Role | Phone | + +------+ + PCP | Unavailable | + +------+ + Encounter Details +--------+ + + + + | Date | Type | Department | Care Team | Description | +--------+ + + + + | 05/07/ | Hospital | [facility] | Helio Ahn | | | 2001 | Encounter | MED CTR SLEEP | MD [address] | | | | | CENTER [address] | [address] | | | | | [place] | [place] [address] | | | | | [address] | [phone] | | | | | [phone] | | | +--------+ + + + [...] [place] | | | | | | [address] | | | | | | | | +--------+---------+ + + + documented as of this encounter Visit Diagnoses Not on filedocumented in this encounter"
--- OUTSIDE RECORDS SUMMARY | ~2020-04-04 | XMS | Encounter Summary ---
Demographics + + + | Address | [address] | | | [place] [address] | + + + | Home Phone [...] Providers + +------+ + | Care Technical Manager Name | Role | Phone | [...] + | [facility] DEPARTMENT | [address] [facility] | [place] [address] | | | PATHOLOGY | [address] | | | + + + + + | [facility] DEPARTMENT OF | [address] [facility] | [place] [address] | | | PATHOLOGY | [address] [...] DEPARTMENT OF | [address] | [place] [address] | | | PATHOLOGY | [address] | | | + + + + + | [place] DEPARTMENT OF | [address] | [place] [address] | | | PATHOLOGY | [address] [...] + + | [facility] | [address] | [place] [address] | | | PATHOLOGY | [address] | | | + + + + + | [facility] DEPARTMENT OF | [address] [facility] | [place] [address] | | | PATHOLOGY | [address] [...] + | [facility] | [address] | [place] [address] | | | PATHOLOGY | [address] | | | + + + + + | [facility] | [address] | [place] [address] | | | PATHOLOGY | [address] | | | + + + + + documented in this encounter Visit Diagnoses Not on filedocumented in this encounter"
--- OUTSIDE RECORDS SUMMARY | ~2020-04-04 | XMS | Encounter Summary ---
Demographics + + + | Address | [address] | | | [place] [address] | + + + | Home Phone [...] Team Providers + +------+ + | Care Clock And Watch Assembler Name | Role | Phone | [...] Pavilion | | | | | | [place], [place] | | | | | | [address] | | | | | | [phone] | | | +--------+ + + + [...] | | | | | | COMPARISON: Comparison | | | | | | is made with prior | | | [...] | | | | or dislocation is seen. | | | | | | Bone density is | | | | | | normal. No softtissue | | | | | | mass is seen. | | | | [...] | | | | | | COMPARISON: Comparison | | | | | | is made with prior | | | [...] | | | | or dislocation is seen. | | | | | | Bone density is | | | | | | normal. No softtissue | | | | | | mass is seen. | | | | [...] | | + +---------+ + + | [facility] DEPARTMENT OF | | | | | RADIOLOGY | | | | + +---------+ + + documented in this encounter Visit Diagnoses Not on filedocumented in this encounter"
--- OUTSIDE RECORDS SUMMARY | ~2020-04-04 | XMS | Encounter Summary ---
Demographics + + + | Address | [address] | | | [place] [address] | + + + | Home Phone | | + + + | Preferred Language | Unknown | + + + | Marital Status | | + + + | Cheondoism Affiliation | 1076 | + + + | Race | Unknown | + + + | Ethnic Group | Unknown | + + + Author + + + | Author | [facility] | | | and [place] | + + + | Organization | [facility] | | | and [...] Team Providers + +------+ + | Care Tiger Machine Operator Name | Role | Phone | + +------+ + | Karli Hammonds | PCP | | | MD | | | + +------+ + Reason for Visit + + + | Reason | Comments | + + + | CPAP Follow Up | | + + + Encounter Details +--------+---------+ + + + | Date | Type | Department | Care Team | Description | +--------+---------+ + + + | 04/25/ | Office | [facility] | Ladarius Martínez PA | MAMADOU on CPAP (Primary | | 2016 | Visit | SLEEP DISORDER [address] | [address] | Dx) | | | | [address] | [place] | | | | | [place] [address] | [address] | | | | | [phone] | | | +--------+---------+ + + + [...] + + + | Blood Pressure | 112/82 | 04/25/2016 9:53 AM | | | | | PDT | | + + + + + | Pulse | 106 | 04/25/2016 9:53 AM | | | | | PDT | | + + + + + | Temperature | - | - | | + + + + + | Respiratory Rate | 18 | 04/25/2016 9:53 AM | | | | | PDT | | + + + + + | Oxygen Saturation | 95% | 04/25/2016 9:53 AM | | | | | PDT | | + + + + + | Inhaled Oxygen | - | - | | | Concentration | | | | + + + + + | Weight | 140.5 kg (309 lb | 04/25/2016 9:53 AM | | | | 11.2 oz) | PDT | | + + + + + | Height | - | - | | + + + + + | Body Mass Index | 53.16 | 03/06/2012 12:00 AM | | | | | PDT | | + + + + + documented in this encounter Progress Notes Ladarius Martínez PA - 04/25/2016 9:49 AM PDT Subjective: Patient ID: Shelby Galdamez is a 56 y.o. female. HPI last office visit was: 02/23/2016 date of polysomnography: 09/18/2006 AHI: 57.1 O2%: 87% Machine type: ResMed S9 with nasal mask obtained from: [facility] [place] Pressure: 9-16 cm Median: 11.6 cm 95%: 13.9 cm Maximum: 15.0 cm Nights using CPAP: 266/365 159/208 40/365 51/61 % of nights >4 hours: 36% 38% 4% 39% average usage (all nights): 3:12 3:16 0:25 3:16 average usage (nights used): 4:24 3:55 3:55 AHI: 1.5 Shelby comes in for CPAP compliance. She says that she sleeps much better when she uses he r CPAP, but she continues to struggle with wearing her CPAP regularly for the duration of he r sleep. She is very disinterested in her CPAP and today's visit. She read a magazine thro ugh the majority of the visit. When asked, she says she doesn't really have any problems wi th wearing her CPAP, but she doesn't like it and she typically just chooses not to wear it. We again discussed the importance of using her CPAP and treating her apnea. I have discussed the download in detail. This shows that her sleep apnea is well controlle d, with an AHI of 1.5. It also shows that her leaks are mostly controlled. BP 112/82 mmHg | Pulse 106 | Resp 18 | Wt 140.479 kg (309 lb 11.2 oz) | SpO2 95% Review of Systems Objective: Physical Exam Assessment: Problem #1: OBSTRUCTIVE SLEEP APNEA ([id number]) This is controlled with CPAP, but she has struggled with her compliance. She has been wear ing her CPAP more consistently, but has struggled with wearing it for the duration of her sl eep. Plan: 1. She is to continue with CPAP indefinitely. 2. She is to work harder at wearing her CPAP 100% of the time she is asleep. 3. She is to avoid making excuses for not using CPAP. I will follow up again in 6 months, sooner prn. Fifteen minutes were spent [id number], w ith the majority of time spent in counseling. Ladarius Martínez PA-C cc: Karli Barry MD documented in this enco unter Plan of Treatment +--------+---------+ + + + | Date | Type | Specialty | Care Team | Description | +--------+---------+ + + + | 05/23/ | Office | Pain Medicine | Xiang Sepulveda, | | | 2019 | Visit | | DO [address] | | | | | | [place] | | | | | | [address] | | | | | | | | +--------+---------+ + + + documented as of this encounter Visit Diagnoses + + | Diagnosis | + + | MAMADOU on CPAP - Primary Obstructive sleep apnea (adult) (pediatric) | + + documented in this encounter"
--- OUTSIDE RECORDS SUMMARY | ~2020-04-04 | XMS | Encounter Summary ---
Demographics + + + | Address | [address] | | | [place] [address] | + + + | Home Phone | | + + + | Preferred Language | Unknown | + + + | Marital Status | | + + + | Gnosticism Affiliation | 1076 | + + + [...] Team Providers + +------+ + | Care Echocardiograph Tech Name | Role | Phone | [...] Description | +--------+---------+ + + + | 09/29/ | Office | [facility] | Xiang Sepulveda, | Other chronic pain | | 2019 | Visit | [facility] | DO [address] | (Primary Dx); | | | | [address]OLOROLOGY [address] | [place], [place] | Osteoarthritis of | | | | [address] | [id number] | lumbar spine, | | | | [place], [place] | | unspecified spinal | | | | [address] | | osteoarthritis | | | | [phone] | | complication status; | | | | | | Facet arthropathy, | | | | | | lumbar; DDD | | | | | | (degenerative disc | | | | | | disease), lumbar; | | | | | | Radiculopathy of | | | | | | lumbar region; | | | | | | Morbid obesity with | | | | | | BMI of 50.0-59.9, | | | | | | adult ([facility]); | | | | | | Obesities, morbid | | | | | | ([facility]) | +--------+---------+ + + + Social History [...] + + + | Blood Pressure | 160/88 | 09/29/2019 10:53 AM | | | | | PST | | + + + + + | Pulse | 94 | 09/29/2019 10:53 AM | | | | | PST | | + + + + + | Temperature | - | - | | + + + + + | Respiratory Rate | - | - | | + + + + + | Oxygen Saturation | 98% | 09/29/2019 10:53 AM | | | | | PST | | + + + + + | Inhaled Oxygen | - | - | | | Concentration | | | | + + + + + | Weight | 130.2 kg (287 lb) | 09/29/2019 10:53 AM | | | | | PST | | + + + + + | Height | - | - | | + + + + + | Body Mass Index | 48.13 | 07/08/2019 10:19 AM | | | | | PDT | | + + + + + documented in this encounter Progress Notes Xiang Sepulveda, DO - 09/29/2019 11:05 AM PSTFormatting of this note might be [...] Status Filed Medication Agreement Active 05/20/2019 11:12 AM Pain Contract- Dr. Sepulveda 01/29/19 PEG Pain screening tool (Pain, enjoyment, general activity) Total score: (Printable questionnaires in American ) Interpretation of Total Score: PEG scores are used to track changes over time. It should de crease after therapy has begun. Last 4 PEG Scores: No flowsheet data found. Opioid Risk Tool (ORT): Total Score Pulse: 94 BP: 160/88 SpO2: 98 % (From Chronic Pain tab; printable questionnaires in American) Interpretation of Total Score: 0 to 3 = Low risk: 6% chance of developing problematic behav iors, 4 to 7 = Moderate risk: 28% chance of developing problematic behaviors, 8 or more = Hi gh risk: 90% chance of developing problematic behaviors. No flowsheet data found. Outpatient Morphine Equivalent Daily Dose (MEDD) None @[email or web address]@ Current Outpatient Medications: albuterol (VENTOLIN HFA) 90 mcg/puff inhaler, Inhale 1 puff every 6 hours as needed fo r shortness of breath, Disp: , Rfl: albuterol 90 mcg/puff inhaler, Inhale 1 puff every 6 hours as needed for shortness of breath, Disp: , Rfl: amLODIPine (NORVASC) 10 MG tablet, Take 10 mg by mouth., Disp: , Rfl: cyclobenzaprine (FLEXERIL) 10 mg [...] ; Surg andrés: Rustam Schmid MD; Location: [facility] OR Review of Systems Objective: Vital Signs: BP 160/88 | Pulse 94 | Wt 130.2 kg (287 lb) | SpO2 98% | BMI 48.13 kg/m Physical Exam No results found for this [...] consistently compliant with her pain contract requirements. JAZZMINE is actively do ing things other than taking medication to help manage her pain. The Patient's ongoing expectations of chronic pain treatment were reviewed Her ongoing functional goals were reviewed. Medication side effects are tolerable. [place] / [place] PDMP reviewed, listed controlled substances are consistent with [facility] prescriptions and patient reported use. Controlled Medications: [...] Chronic benzodiazepine use: n Pain Agreement (date): {YES/2018 Visits every: 2 months Drug Screen every: Twice a year Next Refill due: 30 days She will follow-up in this office in 8 weeks. Patient states that he has seen a art educator and Has started a diet and every time that s he changes her eating habits she gains weight, Instead of losing weight Patient still having difficulty stopping smoking. He does have a follow-up with orthopedic surgery regarding any plans that may have for the upcoming year Follow-up: No follow-ups on file. Greater than 50% of the time of this visit was spent counseling the patient regarding medic ation management and/or coordinating care with other practitioners including Allied health p rofessionals and laboratory monitoring. No notes on file @[email or web address]@ Alternative treatment modalities where discussed and offered to patient including but not l imited to physical therapy, massage therapy, acupuncture, manager of care, along with jabari mmended psychological counseling, either privately, or in group sessions offered by private care individuals, community services, or lutheran organizations. Appropriate referrals were made at patient [...] and complications with the passage of time. [facility] use is also associated with depressions, and liver and renal failure. Finally, these medicines are associated with both physical and emotional addiction and can be difficult to stop after taking for only a few weeks. This document has been created using [employer] Voice Recognition software and Be[employer]. The entry has been reviewed for content and accuracy, but there may still exist "sound alike" tree worker word errors and/or unintended additions and deletions. If there is any question please contact the author of the document: Xiang Sepulveda DOElectronically sig felisha by Xiang Sepulveda DO at 09/29/2019 11:13 AM PSTdocumented in this encounter Plan of Treatment +--------+---------+ + + + | Date | Type | Specialty | Care Team | Description | +--------+---------+ + + + | 05/23/ | Office | Pain Medicine | Xiang Sepulveda, | | 2019 | Visit | | [address] | | | | | | [place] | | | | | | [id number] | | | | | | | | +--------+---------+ + + + documented as of this encounter Visit Diagnoses + + | Diagnosis | + + | Other chronic pain - Primary | + + | Osteoarthritis of lumbar spine, unspecified spinal osteoarthritis complication status | + + | Facet arthropathy, lumbar Lumbosacral spondylosis without myelopathy | + + | DDD (degenerative disc disease), lumbar Degeneration of lumbar or lumbosacral | | intervertebral disc | + + | Radiculopathy of lumbar region Thoracic or lumbosacral neuritis or radiculitis, | | unspecified | + + | Morbid obesity with BMI of 50.0-59.9, adult (HCC) | + + | Obesities, morbid (HCC) Morbid obesity | + + documented in this encounter
--- OUTSIDE RECORDS SUMMARY | ~2020-04-04 | XMS | Encounter Summary ---
Demographics + + + | Address | [address] | | | [place] [address] | + + + | Home Phone [...] Team Providers + +------+ + | Care Teacher Cclc Name | Role | Phone | + +------+ + | Marta Jenkins VASCULAR SONOGRAPHER | PCP | | + +------+ + [...] | Jamie Mailcode: [id number] [place], | | | | | [place], [place] | [place] [address] | | | | | [address] | | | | | | [phone] | | | +--------+ + + + [...] [place] DEPARTMENT | [address] | [place] [address] | | | PATHOLOGY | [address] | | | + + + + + | [facility] DEPARTMENT OF | [address] | [place] [address] | | | PATHOLOGY | [address] [...] | + + + + + | [facility] | [address] | [place] [address] | | | PATHOLOGY | [address] | | | + + + + + | [facility] | [address] [place] [address] [address] | [place] [address] | | | PATHOLOGY | [address] [...] + + + + | [facility] DEPARTMENT OF | [address] | [place] [address] | | | PATHOLOGY | [address] | | | + + + + + | [facility] DEPARTMENT OF | [address] | [place] [address] | | | PATHOLOGY | [address] [...] | | + +---------+ + + | [facility] DEPARTMENT OF | | | | | RADIOLOGY | | | | + +---------+ + + documented in this encounter Visit Diagnoses Not on filedocumented in this encounter"
--- OUTSIDE RECORDS SUMMARY | ~2020-04-04 | XMS | Encounter Summary ---
Demographics + + + | Address | [address] | | | [place] [address] | + + + | Home Phone [...] Team Providers + +------+ + | Care Scrap Drop Operator Name | Role | Phone | [...] | | inflammatory | [address] | [address] | | | | | reaction | [address] | [address] | | | | | due to | [place], [place] | [place] | | | | | unspecified | [address] | [address] | | | | | device, | Phone: | Phone: | | | | | implant, and | [phone] | [phone] | | | | | graft | Fax: | Fax: | | | | | | [phone] | [phone] | +--------+--------+ + + + + Encounter [...] | | | [address] | [facility] [address] | (Primary Dx) | | | | Loop Physician's | [place], [place] | | | | | [address], 3rd floor | [address] | | | | | [place], [place] | [phone] | | | | | [address] | | | | | | [phone] | | | +--------+---------+ + + + [...] CLINIC FOLLOW UP Primary Care Physician: Carlos [address] [address] Ms. Galdamez presents to Infectious Diseases Clinic [...] 18, a nd was therefore admitted to [facility] out of concern for R hip [...] stable condition on 10/22/2010 to [facility] with OPAT & Orthopedic follow-up planned in 2 weeks ti pa. Interim History obtained 11/17/2010: Ms. Galdamez presents [...] R hip incision has healed very well. Lopez were removed locally, and there has been [...] as well as in shoes and socks. Ath[place]-3 Fatty Acids-Vitamin E (FISH OIL) 1,000 mg [...] She will travel to her PCP in [place] in 1 weeks time for another PICC [...] a nd follow-up planning. Carolina Putnam PA-C [facility] Department of Infectious Disease Outpatient IV Antibiotic Therapy Clinic (OPAT) Pager ID: [phone] Mail Code [address] [place] [address] documented in th is encounter Plan of [...] | + + + + + | [facility] | [address] | [place] [address] | | | PATHOLOGY | [address] [...] At | + + + | [facility]) | [facility] | | [facility] [address] | REGIONAL | | [place] [address] | LABORATORY | + + + + + + + + | Performing | Address | City/State/Zipcode | Phone Number | | Organization | | | | + + + + + | [facility] | [address] | [place] [address] | | | LABORATORY | | | [...] + + | [facility] DEPARTMENT OF | [address] | [place] [address] | | | PATHOLOGY | [address] [...] | | | DEPARTMENT | | | [place] | | | OF | | | [...] DEPARTMENT OF | [address] | [place] [address] | | | PATHOLOGY | [address] [...] | + + + + + | [facility] | [address] | [place] [address] | | | PATHOLOGY | [address] | | | + + + + + documented in this encounter Visit Diagnoses + + | Diagnosis | + + | 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
--- OUTSIDE RECORDS SUMMARY | ~2020-04-04 | XMS | Encounter Summary ---
Demographics + + + | Address | [address] | | | [place] [address] | + + + | Home Phone [...] Team Providers + +------+ + | Care Blueprinting Machine Operator Name | Role | Phone | + +------+ + | No Pcp Per Patient | PCP | Unavailable | + +------+ + Encounter Details +--------+ + + + + | Date | Type | Department | Care Team | Description | +--------+ + + + + | 12/15/ | Telecommunication Lines Repairer | Orthopaedics at | Kalyan Arias MD | JUAN DAVID (Total Hip | | 2008 | | [address] | [address] | Arthroplasty) | | | | [address] | [address] | (Primary Dx) | | | | Mailcode: [id number] | [place], [place] | | | | | [facility] | [address] | | | | | [place], [place] | [phone] | | | | | [address] | | | | | | [phone] | | | +--------+ + + + [...] | | + +---------+ + + | [facility] DEPARTMENT OF | | | [...]
--- OUTSIDE RECORDS SUMMARY | ~2020-04-04 | XMS | Encounter Summary ---
Demographics + + + | Address | [address] | | | [place] [address] | + + + | Home Phone [...] Team Providers + +------+ + | Care Infrastructure Developer Name | Role | Phone | + +------+ + | Travis Mcginnis MD | PCP | | + +------+ + Encounter Details +--------+ + + + + | Date | Type | Department | Care Team | Description | +--------+ + + + + | 08/03/ | Hospital | Diagnostic Imaging | | | | 2009 | Encounter | Services at [facility] | | | | | | [address] | | | | | | [address] | | | | | | [facility] | | | | | | [place], [place] | | | | | | [address] | | | | | | [phone] | | | +--------+ + + + [...] + + + +---------+ + + | Shedd-3 Fatty | Take by mouth. | | [...] + +--------+ + + + | MRI SPINE LUMBAR WO | Routin | 08/03/2010 | Lumbar | Results for this | | CONT | e | 2:31 PM | radiculopathy | procedure are in the | | | | PDT | | results section. | + +--------+ + + + documented in this encounter Results MRI SPINE LUMBAR WO [...] of | | | | | | [id number] | | | | | | corner, [...] | | + +---------+ + + | [facility] DEPARTMENT OF | | | | | RADIOLOGY | | | | + +---------+ + + documented in this encounter Visit Diagnoses + + | Diagnosis | + + | Lumbar radiculopathy Thoracic or lumbosacral neuritis or radiculitis, unspecified | + + documented in this encounter"
--- OUTSIDE RECORDS SUMMARY | ~2020-04-04 | XMS | Encounter Summary ---
Demographics + + + | Address | [address] | | | [place] [address] | + + + | Home Phone [...] Team Providers + +------+ + | Care Bar Gauger And Lubricator Tender Name | Role | Phone | [...] Pavilion | | | | | | [place], [place] | | | | | | [address] | | | | | | [phone] | | | +--------+ + + + [...]
--- OUTSIDE RECORDS SUMMARY | ~2020-04-04 | XMS | Encounter Summary ---
Demographics + + + | Address | [address] | | | [place] [address] | + + + | Home Phone | | + + + | Preferred Language | Unknown | + + + | Marital Status | | + + + | Jew Affiliation | 1076 | + + + | Race | Unknown | + + + | Ethnic Group | Unknown | + + + Author + + + | Author | [facility] | | | and [place] | + + + | Organization | [facility] | | | [...] Team Providers + +------+ + | Care Civil Lawyer Name | Role | Phone | + +------+ + PCP | Unavailable | + +------+ + Encounter Details +--------+ + + + + | Date | Type | Department | Care Team | Description | +--------+ + + + + | 01/29/ | Hospital | [facility] | Helio Ahn | | | 2000 | Encounter | MED CTR SLEEP | MD Candie [address] | | | | | CENTER [address] | [address] | | | | | [place] | [place] [address] | | | | | [address] | [phone] | | | | | [phone] | | | +--------+ + + + [...] [place] | | | | | | [address] | | | | | | | | +--------+---------+ + + + documented as of this encounter Visit Diagnoses Not on filedocumented in this encounter"
--- OUTSIDE RECORDS SUMMARY | ~2020-04-04 | XMS | Encounter Summary ---
Demographics + + + | Address | [address] | | | [place] [address] | + + + | Home Phone [...] Team Providers + +------+ + | Care Bevel Face Stoner And Polisher Name | Role | Phone | [...] | | [address] | [address] [place], | | | | | Mailcode: PV430 | [place] [address] | | | | | [facility] | | | | | | [place] | | | | | | [address] | | | | | | [phone] | | | +--------+ + + + [...]
--- OUTSIDE RECORDS SUMMARY | ~2020-04-04 | XMS | Encounter Summary ---
Demographics + + + | Address | [address] | | | [place] [address] | + + + | Home Phone [...] Team Providers + +------+ + | Care Ocean Lifeguard Name | Role | Phone | + [...] Pavilion | | | | | | [place], [place] | | | | | | [address] | | | | | | [phone] | | | +--------+ + + + [...] near | | | | | | [id number] | | | | | | appearance [...]
--- OUTSIDE RECORDS SUMMARY | ~2020-04-04 | XMS | Encounter Summary ---
Demographics + + + | Address | [address] | | | [place] [address] | + + + | Home Phone [...] Team Providers + +------+ + | Care Heater Planer Operator Name | Role | Phone | [...] as of this encounter Progress Notes Interface, Cork Tile Floor Layer In - 08/31/2006 1:03 AM PSTCLINIC DATE: [...] more. PHYSICAL EXAMINATION: She ambulates with a nhiqkesp-bz-ztgbpz right coxalgic gait leaning over the right [...] her primary care physician. Lloyd Garcia M.D. Returned Case Inspector, Orthopedics and Rehabilitation / [id number] / [id number] / [id number] / [id number] C: 10/23/1999 kavita cc: Helio Noland M.D. [facility] [id number] Benson Cooper M.D. [facility] Orthopedics Rehabilitation [address], [address] [place] documented in this encounter Plan of Treatment Not on filedocumented as of this encounter Visit Diagnoses Not on filedocumented in this encounter"
--- OUTSIDE RECORDS SUMMARY | ~2020-04-04 | XMS | Encounter Summary ---
Demographics + + + | Address | [address] | | | [place] [address] | + + + | Home Phone [...] Team Providers + +------+ + | Care Collision Repairer Name | Role | Phone | [...] + + | 03/08/ | Telephone | Orthopaedics at | Tesfaye Saenz | Other | | 2008 | | [address] PA-C | | | | | [address] | | | | | | Mailcode: PV430 | | | | | | [address] | | | | | | [place], [place] | | | | | | [address] | | | | | | [phone] | | | +--------+ + + + [...]
--- OUTSIDE RECORDS SUMMARY | ~2020-04-04 | XMS | Encounter Summary ---
Demographics + + + | Address | [address] | | | [place] [address] | + + + | Home Phone [...] Providers + +------+ + | Care Electrical Contractor Name | Role | Phone | + [...] Pavilion | | | | | | [place], [place] | | | | | | [address] | | | | | | [phone] | | | +--------+ + + + [...] | + + + + + | [facility] | [address] [facility] | [place] [address] | | | PATHOLOGY | [address] | | | + + + + + | [facility] | [address] [facility] | [place] [address] | | | PATHOLOGY | [address] [...] | + + + + + | [facility] DEPARTMENT OF | [address] | [place] [address] | | | PATHOLOGY | [address] | | | + + + + + | [facility] DEPARTMENT | [address] | [place] [address] | | | PATHOLOGY | [address] [...] | + + + + + | [facility] | [address] | [place] [address] | | | PATHOLOGY | [address] | | | + + + + + | [facility] | [facility] [address] | [place] [address] | | | PATHOLOGY | [address] [...] | + + + + + | [facility] DEPARTMENT OF | [address] | [place] [address] | | | PATHOLOGY | [address] | | | + + + + + | [place] DEPARTMENT OF | [address] | [place] [address] | | | PATHOLOGY | [address] [...]
--- OUTSIDE RECORDS SUMMARY | ~2020-04-04 | XMS | Encounter Summary ---
Demographics + + + | Address | [address] | | | [place] [address] | + + + | Home Phone [...] Team Providers + +------+ + | Care Systems Development Manager Name | Role | Phone | [...] | | | | Mailcode: [id number] | [place], [place] | | | | | [facility] | [address] | | | | | [facility] [place] | [phone] | | | | | [address] | | | | | | [phone] | | | +--------+ + + + [...]
--- OUTSIDE RECORDS SUMMARY | ~2020-04-04 | XMS | Encounter Summary ---
Demographics + + + | Address | [address] | | | [place] [address] | + + + | Home Phone | | + + + | Preferred Language | Unknown | + + + | Marital Status | | + + + | Holiness Affiliation | 1076 | + + + | Race | Unknown | + + + | Ethnic Group | Unknown | + + + Author + + + | Author | [facility] | | | and [place] | + + + | Organization | [facility] | | | [...] Team Providers + +------+ + | Care Boot Maker Name | Role | Phone | + +------+ + PCP | Unavailable | + +------+ + Encounter Details +--------+ + + + + | Date | Type | Department | Care Team | Description | +--------+ + + + + | 06/06/ | Hospital | [facility] | Jared Wood MD | | | 2010 | Encounter | [facility] | [address] | | | | | CENTER [address] | [place], [place] | | | | | [facility] | [address] | | | | | [place], [place] | | | | | | [address] | | | | | | [phone] | | | +--------+ + + + [...] documented as of this encounter ED Notes Jared Wood MD - 08/04/2013 11:50 PM PST DATE OF EMERGENCY CENTER EVALUATION: 06/06/2011 at 0808 CHIEF COMPLAINT: Back pain. HISTORY OF PRESENT ILLNESS: This is a 51-year-old female who has chronic back pain. States she takes hydrocodone t.i.d. for at least the last seven years. States she gets back pain rather frequently. She states last night she got up out of bed and started having back pain again. She states she did not have any injuries. No falls. States she gets this pain at l east once a week. States she has been to Physical Therapy without any improvement. She has noted no fevers. No bowel or bladder incontinence. No weakness or change in sensation. Jacobo n is in her lower back. Does not radiate into her legs. REVIEW OF SYSTEMS: Again, no fevers. No chest pain. No cough. No shortness of breath. No a bdominal pain. No nausea, vomiting, diarrhea. No dysuria or frequency. No saddle anesthesia . 10 element review of systems otherwise negative or noncontributory per the history of pre sent illness. PAST MEDICAL HISTORY: She has a history of reflux. She has had multiple right hip surgerie s. She is status post hysterectomy, status post cholecystectomy, status post appendectomy. CURRENT MEDICATIONS: Unknown medicine for reflux and hydrocodone. She takes 10 500s 1 to 2 t.i.d. ALLERGIES: None. SOCIAL HISTORY: No tobacco or alcohol. She resides in [place]. She states she is over here visiting family. PHYSICAL EXAMINATION: VITAL SIGNS: BP was 138/101. Pulse 93, respirations 16, temperature is 97.9. 51-year-old f emale, alert, oriented x3. She is overweight. HEENT: Sclera anicteric. Nose, no discharge. Oral mucosa is moist. NECK: Supple without adenopathy. CARDIAC: Regular rate and rhythm. No murmur. RESPIRATORY: Without wheezes or crackles. ABDOMEN: Bowel sounds normoactive. Soft, nontender. BACK: There is no midline bony tenderness. She has paralumbar tenderness. Pelvis is stable . Hips full range of motion nontender. NEUROLOGIC: Motor is 5/5. Sensory to fine touch intact. DTRs are 1+, symmetric. Toes are d owngoing. Straight leg raise on the right, she goes to about 45 degrees. She gets low back pain without radiation. On the left, it was about 60 degrees and complains of low back pain . Again, without radiation. SKIN: Warm and pink. Her pulses are 4/4. EMERGENCY ROOM COURSE: She was given a shot of Dilaudid 1 mg IM and Phenergan 12.5 mg IM. ASSESSMENT: 51-year-old female with some low back pain. She has chronic low FILI GALDAMEZ : 58 | [id number] [id number] | ADM 06/06/11 DS 06/06/11 DEP ER | Jared Wood MD | [facility] ES: B R pt [id number] | EMERGENCY CENTER THIS REPORT IS CONFID ENTIAL AND NOT TO BE RELEASED WITHOUT PROPER AUTHORIZATION. back pain. I do not feel that she has cauda equina. I do not feel she has a discitis. I do not feel she has a abdominal aortic aneurysm or dissection. I do not feel she has a urinar y tract infection, pyelonephritis or stone. DIAGNOSIS: Acute on chronic back pain. PLAN: She is to continue her hydrocodone. Follow up with her doctor in [place]. Heat t o her back alternating with ice. Stretching. Good back mechanics. Activity as tolerated. Re turn to the ER for increased pain, weakness, worsening. Condition on discharge is good. Jared Wood MD MARGO:NLA Job ID:[id number] Doc ID:[id number] cc: Electronically Signed 06/07/11 1307 Jared Wood MD DAWITJulienABEBEFILI Carin Sea : 58 | Signed MR# [id number] ACCT# [id number] | ADM 06/06/11 DS 06/06/11 DEP ER | Jared Wood MD | [facility] ES: B R pt [phone] | EMERGENCY CENTER THIS REPORT IS CONFID ENTIAL AND NOT TO BE RELEASED WITHOUT PROPER AUTHORIZATION. documented in this encounter Plan of Treatment +--------+---------+ + + + | Date | Type | Specialty | Care Team | Description | +--------+---------+ + + + | 05/23/ | Office | Pain Medicine | Xiang Sepulveda, | | | 2019 | Visit | | DO [address] | | | | | | [place] | | | | | | [address] | | | | | | | | +--------+---------+ + + + documented as of this encounter Visit Diagnoses Not on filedocumented in this encounter"
--- OUTSIDE RECORDS SUMMARY | ~2020-04-04 | XMS | Encounter Summary ---
Demographics + + + | Address | [address] | | | [place] [address] | + + + | Home Phone [...] Team Providers + +------+ + | Care Litigation Attorney Associate Name | Role | Phone | [...] of this encounter Progress Notes Interface, Life Trainer In - 04/28/2006 3:06 AM PDTCLINIC DATE: 09/24/2002 ORTHOPEDIC CLINIC SUBJECTIVE: A 42-year-old obese female follows for right hip endstage degenerative joint disease. She returns to clinic today stating that her hip is bothering her again. Her last injection was 6 months ago in February 2002. It lasted approximately 5 months. She continues with a therapy exercise program at the [facility]. She takes Celebrex, multivitamin, and uses a [...] fluoroscopically-guided hip injections closer to home in [place], [place], and come here when she fails to respond to schedule her total hip replacement at that time. She seems to prefer to drive across the [place] for her care. Lloyd Garcia M.D. Excavating Contractor, Orthopedics and Rehabilitation / [id number] / [id number] / [id number] / [id number] cc: Ninfa Guillen M.D. [address] [place], [place] [id number] signed by Interface, Life Trainer In at 04/28/2006 3:0 6 AM PDTInterface, Life Trainer In - 04/28/2006 3:06 AM PDTCLINIC DATE: [...] have to return all the way to [facility] from [place], [place]. Shruti Manjarrez MD AM / [id number] / [id number] / [id number] / [id number] cc: Ninfa Guillen M.D. [address] [place], [place] [id number] signed by Interface, Life Trainer In at 04/28/2006 3:0 6 AM PDTdocumented in this encounter Plan of Treatment Not on filedocumented as of this encounter Visit Diagnoses Not on filedocumented in this encounter"
--- OUTSIDE RECORDS SUMMARY | ~2020-04-04 | XMS | Encounter Summary ---
Demographics + + + | Address | [address] | | | [place] [address] | + + + | Home Phone [...] Team Providers + +------+ + | Care Watch Parts Grinder Name | Role | Phone | [...] as of this encounter Progress Notes Interface, Orthopedic Nurse Practitioner In - 07/18/2006 3:04 AM PDTCLINIC DATE: [...] further treatment options. Brigette Lim P.A.-C / [id number] / [id number] / [id number] / Tdocumented in this encounter Plan of Treatment Not on filedocumented as of this encounter Visit Diagnoses Not on filedocumented in this encounter"
--- OUTSIDE RECORDS SUMMARY | ~2020-04-04 | XMS | Encounter Summary ---
Demographics + + + | Address | [address] | | | [place] [address] | + + + | Home Phone [...] Team Providers + +------+ + | Care Ms Sql Dba Name | Role | Phone | + [...] | | [address] | Roxann Ayala [place], | | | | | Mailcode: [id number] | [place] [address] | | | | | [facility] | | | | | | [place] | | | | | | [address] | | | | | | [phone] | | | +--------+ + + + [...] | | + +---------+ + + | [facility] DEPART[facility] OF | | | | | RADIOLOGY | | | | + +---------+ + + documented in this encounter Visit Diagnoses Not on filedocumented in this encounter"
--- OUTSIDE RECORDS SUMMARY | ~2020-04-04 | XMS | Encounter Summary ---
Demographics + + + | Address | [address] | | | [place] [address] | + + + | Home Phone [...] Team Providers + +------+ + | Care Bung Remover Name | Role | Phone | + [...] Description | +--------+---------+ + + + | 02/22/ | Office | [facility] | Ladarius Martínez PA | MAMADOU on CPAP (Primary | | 2016 | Visit | SLEEP DISORDER [address] | [address] | Dx) | | | | [address] [place] | [place] | | | | | [place] [address] | [address] | | | | | [phone] | | | +--------+---------+ + + + [...] + + + | Blood Pressure | 122/80 | 02/23/2016 10:11 AM | | | | | PDT | | + + + + + | Pulse | 103 | 02/23/2016 10:11 AM | | | | | PDT | | + + + + + | Temperature | - | - | | + + + + + | Respiratory Rate | 20 | 02/23/2016 10:11 AM | | | | | PDT | | + + + + + | Oxygen Saturation | 96% | 02/23/2016 10:11 AM | | | | | PDT | | + + + + + | Inhaled Oxygen | - | - | | | Concentration | | | | + + + + + | Weight | 135.9 kg (299 lb | 02/23/2016 10:11 AM | | | | 11.2 oz) | PDT | | + + + + + | Height | - | - | | + + + + + | Body Mass Index | 51.44 | 03/06/2012 12:00 AM | | | | | PDT | | + + + + + documented in this encounter Progress Notes Ladarius Martínez PA - 02/23/2016 10:16 AM PDT Subjective: Patient ID: Shelby Galdamez is a 55 y.o. female. HPI last office visit was: 01/31/2015 date of polysomnography: 09/18/2006 AHI: 57.1 O2%: 87% Machine type: ResMed S9 with nasal mask obtained from: [facility] in [place] Pressure: 9-16 cm Median: 12.2 cm 95%: 14.2 cm Maximum: 15.1 cm Nights using CPAP: 266/365 159/208 40/365 % of nights >4 hours: 36% 38% 4% average usage (all nights): 3:12 3:16 0:25 average usage (nights used): 4:24 3:55 AHI: 1.9 Shelby comes in for CPAP compliance. She says that she sleeps much better when she uses he r CPAP. She continues to have an irregular sleep schedule and often only sleeps for a few h ours at night and sometimes "doesn't sleep at all". She understands that she has severe shirt turner ea, but she often doesn't care about using it or not. The majority of today's visit was spe nt discussing the pathophysiology of Obstructive Sleep Apnea with her. The associations melissa percysara MAMADOU and hypertension, ASCVD, cardiac rhythm abnormalities, stroke, diabetes, and weight were also discussed. She has a variety of reasons/excuses for not using her CPAP. Most of these are easily fixed, if she chooses to. She also says she was in the hospital recently. While there she was using a CPAP provided by the hospital. She says her oxygen levels wer e low while sleeping and using CPAP. It was recommended that she use oxygen while sleeping. I have discussed the download in detail. This shows that her sleep apnea is well controlle d, with an AHI of 1.9. It also shows that her leaks are mostly controlled. BP 122/80 mmHg | Pulse 103 | Resp 20 | Wt 135.943 kg (299 lb 11.2 oz) | SpO2 96% Review of Systems Objective: Physical Exam Assessment: Problem #1: OBSTRUCTIVE SLEEP APNEA (NPA20-Z50.33) This is controlled with CPAP, but she has struggled with wearing her CPAP consistently. Jac jackson has a for a variety of reasons/excuses for not using CPAP. During a recent stay in [facility] she was told that her oxygen levels were too low while sleeping and using CPAP. Plan: 1. She is to continue with CPAP indefinitely. 2. She is to work harder at wearing her CPAP 100% of the time she is asleep. 3. She is to avoid making excuses for not using CPAP. 4. We have faxed a prescription to [facility] [place] for a nocturnal pulse oxym etry study on CPAP with room air. I will follow up again in 2 months, sooner prn. Twenty-five minutes were spent face-to-fac e, with the majority of time spent in counseling. [...] [place] | | | | | | [address] | | | | | | | | +--------+---------+ + + + documented as of this encounter Visit Diagnoses + + | Diagnosis | + + | MAMADOU on CPAP - Primary Obstructive sleep apnea (adult) (pediatric) | + + documented in this encounter
--- OUTSIDE RECORDS SUMMARY | ~2020-04-04 | XMS | Encounter Summary ---
Demographics + + + | Address | [address] | | | [place] [address] | + + + | Home Phone [...] Providers + +------+ + | Care Manager Integration Name | Role | Phone | + [...] + + + + | 11/13/ | Cardroom Plastic Card Grader | Infectious | Carolina Putnam | | | 2010 | | Diseases at [facility] | K, PA-C [address] | | | | | [address] | [facility] | | | | | Loop Physician's | [place], [place] | | | | | [place], [address] floor | [address] | | | | | [place], [place] | [phone] | | | | | [address] | | | | | | [phone] | | | +--------+ + + + [...]
--- OUTSIDE RECORDS SUMMARY | ~2020-04-04 | XMS | Encounter Summary ---
Demographics + + + | Address | [address] | | | [place] [address] | + + + | Home Phone [...] Team Providers + +------+ + | Care Numerical Control Nesting Operator Name | Role | Phone | [...]
--- OUTSIDE RECORDS SUMMARY | ~2020-04-04 | XMS | Encounter Summary ---
Demographics + + + | Address | [address] | | | [place] [address] | + + + | Home Phone [...] Team Providers + +------+ + | Care Food Safety Coordinator Name | Role | Phone | + +------+ + PCP | Unavailable | + +------+ + Encounter Details +--------+ + + + + | Date | Type | Department | Care Team | Description | +--------+ + + + + | 12/23/ | Millwright Supervisor | Orthopaedics at | Gino Baker MD | Osteoarthritis of | | 2006 | | [facility] [address] | [address] | Hip (Primary Dx) | | | | [address] | [address] [place] | | | | | Mailcode: PV430 | [place] [address] | | | | | [facility] | | | | | | [place], [place] | | | | | | [address] | | | | | | [phone] | | | +--------+ + + + [...]
--- OUTSIDE RECORDS SUMMARY | ~2020-04-04 | XMS | Encounter Summary ---
Demographics + + + | Address | [address] | | | [place] [address] | + + + | Home Phone [...] Team Providers + +------+ + | Care Investment Trader Name | Role | Phone | + [...] | | | [address] | [address] [place], [place] | | | | | Mailcode: [id number] | [address] | | | | | [facility] | | | | | | [place], [place] | | | | | | [address] | | | | | | [phone] | | | +--------+ + + + [...] 10/30/99 | | | | | | [id number] hours. | | | | | | Dictated 11/01/99. | | | | | | FINDINGS: There is a | | | | | | shallow right rotatory | | | | | | lumbar convexity. | | | | | | [id number] S1 flexion | | | | | [...]
--- OUTSIDE RECORDS SUMMARY | ~2020-04-04 | XMS | Encounter Summary ---
Demographics + + + | Address | [address] | | | [place] [address] | + + + | Home Phone [...] Team Providers + +------+ + | Care Accounts Payable Bookkeeper Name | Role | Phone | + +------+ + | Marta Jenkins AERODYNAMICS TEACHER | PCP | | + +------+ [...] | Jamie Mailcode: [address] [place], | | | | | [place], [place] | [place] [address] | | | | | [address] | | | | | | [phone] | | | +--------+ + + + [...]
--- OUTSIDE RECORDS SUMMARY | ~2020-04-04 | XMS | Encounter Summary ---
Demographics + + + | Address | [address] | | | [place] [address] | + + + | Home Phone | | + + + | Preferred Language | Unknown | + + + | Marital Status | | + + + | Holiness Affiliation | 1076 | + + + | Race | Unknown | + + + | Ethnic Group | Unknown | + + + Author + + + | Author | [facility] | | | and [place] | + + + | Organization | [facility] | | | [...] Providers + +------+ + | Care Harness Brusher Name | Role | Phone | + +------+ + PCP | Unavailable | + +------+ + Encounter Details +--------+ + + + + | Date | Type | Department | Care Team | Description | +--------+ + + + + | 10/21/ | [facility] | [facility] | Helio Ahn | | | 2006 | Encounter | MED CTR SLEEP | MD Candie [address] | | | | | CENTER [address] | [address] | | | | | [place] | [place] [address] | | | | | [address] | [phone] | | | | | [phone] | | | +--------+ + + + [...] [place] | | | | | | [address] | | | | | | | | +--------+---------+ + + + documented as of this encounter Visit Diagnoses Not on filedocumented in this encounter"
--- OUTSIDE RECORDS SUMMARY | ~2020-04-04 | XMS | Encounter Summary ---
Demographics + + + | Address | [address] | | | [place] [address] | + + + | Home Phone [...] Team Providers + +------+ + | Care Acquisition Cost Estimator Name | Role | Phone | + [...] [facility] | | | | | | [address] | | | | | | [address] [facility] | | | | | | [place], [address] | | | | | | [place], [place] | | | | | | [address] | | | | | | [phone] | | | +--------+ + + + [...]
--- OUTSIDE RECORDS SUMMARY | ~2020-04-04 | XMS | Encounter Summary ---
Demographics + + + | Address | [address] | | | [place] [address] | + + + | Home Phone [...] Providers + +------+ + | Care Motor Bike Mechanic Name | Role | Phone | + +------+ + | No Pcp Per Patient | PCP | Unavailable | + +------+ + Reason for Visit + + + | Reason | Comments | + + + | Postoperative visit | | + + + Consult to [place] (Routine) +--------+--------+ + + + + | Status | Reason | Specialty | Diagnoses / | Referred By | Referred To | | | | | Procedures | Contact | Contact | +--------+--------+ + + + + | Closed | | Orthopedics | Diagnoses | Hugo, | Hugo, | | | | | | Kalyan Barrientos MD | Kalyan W, MD | | | | | Osteoarthros | [address] | | | | | is, | [address] | [address] | | | | | unspecified | [address] | [address] [place], | | | | | whether | [place], [place] | [place] | | | | | generalized | [address] | [address] | | | | | or | Phone: | Phone: | | | | | localized, | [phone] | [phone] | | | | | pelvic | Fax: | Fax: | | | | | region and | [phone] | [phone] | | | | | thigh | | | | | | | Osteoarthrit | | | | | | | is of Hip | | | | | | | Procedures | | | | | | | MA TOTAL HIP | | | | | | | | | | | | | | ARTHROPLASTY | | | | | | | MA | | | | | | | RECONSTRUC | | | | | | | HIP | | | | | | | SOCKET,RESEC | | | | | | | FEM HEAD | | | | | | | MA REMOVAL | | | | | | | OF ISCHIAL | | | | | | | BURSA MA | | | | | | | [...] Description | +--------+---------+ + + + | 10/14/ | Office | Orthopaedics at | Tesfaye Saenz | JUAN DAVID (Total Hip | | 2008 | Visit | [facility] [address] | [address]GAN Evangelista | Arthroplasty) | | | | [address] | | (Primary Dx) | | | | Mailcode: [id number] | | | | | | [facility] | | | | | | [place], [place] | | | | | | [address] | | | | | | [phone] | | | +--------+---------+ + + + [...] + + + | Blood Pressure | 110/70 | 10/14/2008 10:12 AM | | | | | PST | | + + + + + | Pulse | - | - | | + + + + + | Temperature | 36.5 C (97.7 F) | 10/14/2008 10:12 AM | | | | | PST [...] + + + + | Weight | 112 kg (247 lb) | 10/14/2008 10:12 AM | | | | | PST | | + + + + + | Height | 162.6 cm (5' 4") | 10/14/2008 10:12 AM | | | | | PST | | + + + + + | Body Mass Index | 42.4 | 10/14/2008 10:12 AM | | | | | PST | | + + + + + documented in this encounter Progress Notes Kalyan Colby MD - 11/18/2008 10:34 AM PSTI have reviewed the patient's visit as charted by JORDY Germain. 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 SX: R JUAN DAVID, HO excision, ORIF greater trochanter nonunion SX DATE: 09/06/09 SUBJECTIVE Shelby Galdamez was seen today 4 weeks postop. She complains of moderate pain that is impro ving since surgery. She was instructed to be toe touch WB on right LE with a walking aid bu t admits to ambulating around house at times without walking aids. She has had several episodes since surgery where she states she was burping up fecal matter . She is being worked up now by a shed hand for this issue. OBJECTIVE: - On examination the wound is healed without signs of infection. Incision is clean and dry . No signs of erythema or drainage. - mild amount of swelling in right LE. - Neurovascular exam is normal. X-RAYS Xrays of the right hip show proximal migration of the greater trochanter fracture fragment. Otherwise prosthesis remains in good allignment without evidence of loosening. ASSESSMENT: -Ms. Shelby Galdamez is a 48 year old female 4 weeks s/p R JUAN DAVID, HO excision, ORIF greater tr ochanter nonunion PLAN: - Patient advised to continue trochanteric precautions and TTWB on RLE for 4 more weeks. - Patient will begin physical therapy at 8 weeks post op and was instructed to contact clin ic at this time for a external order to be placed. - Instructed pt to decrease use of narcotic medication which may be contributing to gastric upset and to supplement with Tylenol (max 400mg daily). - Follow up in 3-[address] Colby. - X-rays will be required at next visit (AP Pelvis (hip centered), AP/LAT Right hip) - Patient advised to call back if fever, chills, increased wound erythema, pain, drainage. - Should she have any questions or concerns prior to her next visit she is to contact the dorian castaneda. documented in this encounter Plan of Treatment Not on filedocumented as of this encounter Visit Diagnoses + + | Diagnosis | + + | JUAN DAVID (total hip arthroplasty) - Primary Hip joint replacement by other means | + + documented in this encounter
--- OUTSIDE RECORDS SUMMARY | ~2020-04-04 | XMS | Encounter Summary ---
Demographics + + + | Address | [address] | | | [place] [address] | + + + | Home Phone [...] Team Providers + +------+ + | Care Kidney Puller Name | Role | Phone | + +------+ + | Marta Jenkins MEDICAL RECORDS SPECIALIST | PCP | | + +------+ + [...] | Jamie Mailcode: [address] [place], | | | | | [place], [place] | [place] [address] | | | | | [address] | | | | | | [phone] | | | +--------+ + + + [...]
--- OUTSIDE RECORDS SUMMARY | ~2020-04-04 | XMS | Encounter Summary ---
Demographics + + + | Address | [address] | | | [place] [address] | + + + | Home Phone [...] Team Providers + +------+ + | Care Flat Surfacer Jewel Name | Role | Phone | + +------+ + | Marta Jenkins PSYCHOSOCIAL REHABILITATION COUNSELOR | PCP | | + +------+ + Encounter Details +--------+ + + + + | Date | Type | Department | Care Team | Description | +--------+ + + + + | 11/19/ | Documentati | Digestive Health | Clinic, Surgery | | | 2019 | on | [place] [facility] [address] | | | | | | [address] | | | | | | Mailcode: [place] | | | | | | for Health and | | | | | | Healing, [address] | | | | | | [facility] [place] | | | | | | [address] | | | | | | [phone] | | | +--------+ + + + [...]
--- OUTSIDE RECORDS SUMMARY | ~2020-04-04 | XMS | Encounter Summary ---
Demographics + + + | Address | [address] | | | [place] [address] | + + + | Home Phone [...] Team Providers + +------+ + | Care Speech And Drama Teacher Name | Role | Phone | [...] | | | | Mailcode: [id number] | [place], [place] | | | | | [facility] | [address] | | | | | [place], [place] | [phone] | | | | | [address] | | | | | | [phone] | | | +--------+ + + + [...]
--- OUTSIDE RECORDS SUMMARY | ~2020-04-04 | XMS | Encounter Summary ---
Demographics + + + | Address | [address] | | | [place] [address] | + + + | Home Phone | | + + + | Preferred Language | Unknown | + + + | Marital Status | | + + + | Samaritan Affiliation | 1076 | + + + | Race | Unknown | + + + | Ethnic Group | Unknown | + + + Author + + + | Author | [facility] | | | and [place] | + + + | Organization | [facility] | | | [...] Team Providers + +------+ + | Care Ordnance Technician Name | Role | Phone | [...] + + | 03/24/ | Office | [facility] | Xiang Sepulveda, | Back pain, | | 2019 | Visit | [facility] | DO [address] | unspecified back | | | | [address] | [place], [place] | location, | | | | [address] | [id number] | unspecified back | | | | [place], [place] | | pain laterality, | | | | [address] | | unspecified | | | | [phone] | | chronicity (Primary | | | [...] not limited to phys ical therapy, daycare worker, acupuncture, massage therapy, and nutritional health [...] Author Status Filed Medication Agreement Antonella Sprague, Mobile Patrol Officer Active 11/25/2019 10:52 AM Pain Contract- Dr. Sepulveda 11/25/2019 PEG Pain screening tool (Pain, enjoyment, general activity) Total score: (Printable questionnaires in Luxembourgish ) Interpretation of Total Score: PEG scores are used to track changes over time. It should de crease after therapy has begun. Last 4 PEG Scores: No flowsheet data found. Opioid Risk Tool (ORT): Total Score Temp: 36.7 C (98.1 F) Temp Source: Oral Pulse: 114 Resp: 24 BP: 156/85 SpO2: 96 % (From Chronic Pain tab; printable questionnaires in Luxembourgish) Interpretation of Total Score: 0 to 3 [...] situation as her home health worker and director medical safety feel she requires 24/7 care and may need to be placed in an extended care facility. This wi ll be up to them and her primary care physician I explained. She does have an appointment [facility] orthopedic [facility] next week in [place]. Active range of motion bilateral upper extremities [...] reviewed, listed controlled substances [facility] reported use. [...] to physical therapy, massage therapy, acupuncture, daycare worker, along with jabari mmended psychological counseling, [...] and complications with the passage of time. half-way use is also associated with depressions, and [...] and coordination of care with other health memory care program director and monitoring labs results, other test results and imagin g including [facility] and/or [facility] prescription monitoring systems. This document has been created using [employer] Recognition software and [employer] The entry has been reviewed for content and accuracy, but there may still exist "sound alike" occupational therapy instructor word errors and/or unintended additions and deletions. [...] [place] | | | | | | [address] | | | | | | | [...]
--- OUTSIDE RECORDS SUMMARY | ~2020-04-04 | XMS | Encounter Summary ---
Demographics + + + | Address | [address] | | | [place] [address] | + + + | Home Phone [...] Team Providers + +------+ + | Care Member Of Congress Name | Role | Phone | + [...] as of this encounter Progress Notes Interface, Nitrogen Operator In - 04/19/2006 3:09 AM PDTCLINIC DATE: [...] questions. Jason Castano M.A. Orthopedics / HS [id number] / [id number] / [id number] / Tdocumented in this encounter Plan of Treatment Not on filedocumented as of this encounter Visit Diagnoses Not on filedocumented in this encounter"
--- OUTSIDE RECORDS SUMMARY | ~2020-04-04 | XMS | Encounter Summary ---
Demographics + + + | Address | [address] | | | [place] [address] | + + + | Home Phone [...] Team Providers + +------+ + | Care Dump Worker Name | Role | Phone | + +------+ + | Travis Mcginnis MD | PCP | | + +------+ + Encounter Details +--------+ + + + + | Date | Type | Department | Care Team | Description | +--------+ + + + + | 11/09/ | Documentati | Vascular Access at | Lis [facility]uel[facility] | | | 2010 | on | [facility] | HERMINIO Swain [address] | | | | | [address] | [address] | | | | | [facility] | Rd [place], [place] | | | | | [place], [place] | [address] | | | | | [address] | | | | | | [phone] | | | +--------+ + + + [...]
--- OUTSIDE RECORDS SUMMARY | ~2020-04-04 | XMS | Encounter Summary ---
Demographics + + + | Address | [address] | | | [place] [address] | + + + | Home Phone [...] Team Providers + +------+ + | Care Eyelet Operator Name | Role | Phone | [...] as of this encounter Progress Notes Interface, Bilingual Secretary In - 08/28/2006 3:05 AM PSTCLINIC DATE: [...] clinical evaluation. Benson Cooper M.D. / SALEEM [id number] / [id number] / [id number] / cc: Lloyd Garcia M.D. documented in this encounter Plan of Treatment Not on filedocumented as of this encounter Visit Diagnoses Not on filedocumented in this encounter"
--- OUTSIDE RECORDS SUMMARY | ~2020-04-04 | XMS | Encounter Summary ---
Demographics + + + | Address | [address] | | | [place] [address] | + + + | Home Phone [...] Team Providers + +------+ + | Care Associate Account Manager Name | Role | Phone | [...] as of this encounter Progress Notes Interface, Consular Officer In - 04/01/2006 3:12 AM PDTCLINIC DATE: [...] a total hip replacement. Lloyd Garcia M.D. Housekeeping/Laundry, Orthopedics and Rehabilitation / [id number] / [id number] / [id number] / cc: Ninfa Guillen M.D. [address] [id number] signed by Interface, Consular Officer In at 04/01/2006 3:1 2 AM PDTdocumented in this encounter Plan of Treatment Not on filedocumented as of this encounter Visit Diagnoses Not on filedocumented in this encounter"
--- OUTSIDE RECORDS SUMMARY | ~2020-04-04 | XMS | Encounter Summary ---
Demographics + + + | Address | [address] | | | [place] [address] | + + + | Home Phone [...] Providers + +------+ + | Care Business Analysis Analyst Name | Role | Phone | [...] [facility] | | | | | | [address] | | | | | | [address] [facility] | | | | | | [place], [address] | | | | | | [place], [place] | | | | | | [address] | | | | | | [phone] | | | +--------+ + + + [...]
--- OUTSIDE RECORDS SUMMARY | ~2020-04-04 | XMS | Encounter Summary ---
Demographics + + + | Address | [address] | | | [place] [address] | + + + | Home Phone [...] Team Providers + +------+ + | Care Plant Reliability Engineer Name | Role | Phone | [...] Description | +--------+---------+ + + + | 05/29/ | Office | [facility] | Xiang Sepulveda, | Chronic pain | | 2019 | Visit | [facility] | DO [address] | syndrome (Primary | | | | [address] | [place], [place] | Dx); Radiculopathy | | | | [address] | [address] | of lumbar region; | | | | [place], [place] | | DDD (degenerative | | | | [address] | | disc disease), | | | | [phone] | | lumbar; Facet | | | [...] site; | | | | | | Other chronic pain | +--------+---------+ + + + [...] + + + | Blood Pressure | 206/91 | 05/29/2019 11:15 AM | | | | | PDT | | + + + + + | Pulse | 101 | 05/29/2019 11:15 AM | | | | | PDT | | + + + + + | Temperature | - | - | | + + + + + | Respiratory Rate | 18 | 05/29/2019 11:15 AM | | | | | PDT | | + + + + + | Oxygen Saturation | 96% | 05/29/2019 11:15 AM | | | | | PDT | | + + + + + | Inhaled Oxygen | - | - | | | Concentration | | | | + + + + + | Weight | 127.5 kg (281 lb) | 05/29/2019 11:15 AM | | | | | PDT | | + + + + + | Height | 162.6 cm (5' 4") | 05/29/2019 11:15 AM | | | | | PDT | | + + + + + | Body Mass Index | 48.23 | 05/29/2019 11:15 AM | | | | | PDT | | + + + + + documented in this encounter Progress Notes Xiang Sepulveda DO - 05/29/2019 11:30 AM PDTFormatting of this note might be different fr om the original. Progress Notes by Xiang Sepulveda DO at 05/07/19 1040 Author: Xiang Sepulveda DO Service: (none) Author Type: Physician Filed: 05/07/19 113 Encounter Date: 05/07/2019 Status: Addendum Custom Car Builder: Xiang Sepulveda DO (Physician) Related Notes: Original Note by Xiang Sepulveda DO (Physician) filed at 05/07/19 1127 Patient returns for medication review and adjustment as deemed necessary for medical manage ment and insurance issues 58-year-old female seen back in the office today for medication evaluation follow-up. Bri ent complaining of left hip pain. Patient saw an orthopedic surgeon was that she needs to ge t procedure scheduled. She is having some difficulty with her insurance regarding this Current medications that we give her include [...] daily., Di sp: 60 tablet, Rfl: 11 oxyCODONE-acetaminophen (PERCOCET) 5-325 MG per tablet, Take 1 tablet by mouth every 6 (six) hours as needed for up to 30 days., Disp: 120 tablet, Rfl: 0 Current Pain Level 2/10 Worst 7/10 Best 1/10 Past Medical History Diagnosis Date Arthritis bilateral shoulders Hypertension Other chronic pain ROS Unchanged from previous visit LMP 07/14/1998 (Approximate) HEENT : Unremarkable, PERRLA, EOMI Heart : HRRR LUNGS : Decreased breath sounds bilateral posterior basis Abdomin : Soft, non tender, BS active X 4 obese Extremities : Warm , bilateral lower extremities left greater than right edema, AROM BUE WFL ; MS 4/5 ; AROM BLE WFL, ;MS 4/5 Gait - uses roller walker for extended distances Improved Functional Status for Age Including ADL's, Mobility and Transfers where appr opriate Assistive Devices : Uses a manual wheelchair for extended distances LAB REVIEWED Available No [...] to physical therapy, mass age therapy, acupuncture, lawn care professional, along with recommended psychological counseling , either privately, or in group sessions offered by private care individuals, community serv ices, or cheondoism organizations. Appropriate referrals were made at patient and/or provider request Narcan was prescribed, when appropriate, and patient instructed in its use for emergency on ly. As instructed in proper medication storage and disposal. She was also given a list of a ppropriate disposal/the use if necessary Continue current medication regime with these changes and/ or additions : Refill her Per cocet 5/325 one po q6 hours Lyrica 75 mg twice a day and Voltaren gel applied on a prn basi s Patient understands and is in full agreement with the above plan, Will return to office in 4 weeks, [facility] was consulted and appears appropriate, Urine Toxicology scr een is pending, Current Morphine milligram equivalents is 30 mg per day FOLLOW UP : As [...] are noted in men and women. Ma co men will suffer erectile dysfunction with these [...] after taking for only a few weeks. documented in this e ncounter Plan of Treatment +--------+---------+ + + + | Date | Type | Specialty | Care Team | Description | +--------+---------+ + + + | 05/23/ | Office | Pain Medicine | Xiang Sepulveda, | | | 2019 | Visit | | [address] | | | | | | [place] | | | | | | [address] | | | | | | | | +--------+---------+ + + + documented as of this encounter Visit Diagnoses + + | Diagnosis | + + | Chronic pain syndrome - Primary | + + | Radiculopathy of lumbar [...] type, unspecified site | + + | Other chronic pain | + + documented in this encounter
--- OUTSIDE RECORDS SUMMARY | ~2020-04-04 | XMS | Encounter Summary ---
Demographics + + + | Address | [address] | | | [place] [address] | + + + | Home Phone [...] | + + + + + | aCsandra Smith | ROBERTO | [place] | | + + + + + Care Team Providers + +------+ + | Care Dishcloth Folder Name | Role | Phone | + [...] | | Procedures | Rd | [address] [place], | | | | | CONSULT TO | [place], [place] | [place] [address] | | | | | ORTHOPEDICS | [address] | | | | | | AND [...] | | [address] | [address] [place], | | | | | Mailcode: [address] | [place] [address] | | | | | [facility] | | | | | | [place], [place] | | | | | | [address] | | | | | | [phone] | | | +--------+---------+ + + + [...] as of this encounter Progress Notes Interface, Land Development Project Manager In - 10/05/2006 2:33 AM PST [id number] [facility] Osei [id number] Clinic Date: 10/02/2006 Clinic: Orthopaedics [facility] Galdame[facility] [...] Acevedo. Gino Baker M.D. KEE / SALEEM [id number] / [id number] / [id number] / [id number] cc: Quintin T[place] Electronically signed by Gino Baker 10-04-2006 03:05:12 [...]
--- OUTSIDE RECORDS SUMMARY | ~2020-04-04 | XMS | Encounter Summary ---
Demographics + + + | Address | [address] | | | [place] [address] | + + + | Home Phone [...] Team Providers + +------+ + | Care Conveyor Belt Operator Name | Role | Phone | [...] as of this encounter Progress Notes Interface, Homemaker Companion In - 09/15/2006 5:11 AM PSTCLINIC DATE: [...] Lloyd Garcia MD LLP:[email or web address] C: 04/26/99 [facility] cc: Matthew Garcia MD [address] [place], [place] [address]Ynfwhebatcznzu signed by Interface, Homemaker Companion In at 09/15/2006 5:11 AM PSTInterface, Homemaker Companion In - 09/13/2006 3:12 AM PSTCLINIC DATE: [...] evaluation and treatment recommendations. Lloyd Garcia M.D., Research Laboratory Technician, Orthopedics and Rehabilitation AH:[id number] Electronically signed by Bill, Homemaker Companion In at 1 11/14/2005 3:12 AM PSTdocumented in this encounter Plan of Treatment Not on filedocumented as of this encounter Visit Diagnoses Not on filedocumented in this encounter"
--- OUTSIDE RECORDS SUMMARY | ~2020-04-04 | XMS | Encounter Summary ---
Demographics + + + | Address | [address] | | | [place] [address] | + + + | Home Phone [...] Providers + +------+ + | Care Rn Chemical Dependency Name | Role | Phone | + +------+ + | No Pcp Per Patient | PCP | Unavailable | + +------+ + Encounter Details +--------+ + + + + | Date | Type | Department | Care Team | Description | +--------+ + + + + | 10/13/ | Examining Chair Assembler | Orthopaedics at | Tesfaye Saenz | Osteoarthritis of | | 2008 | | [facility] [address] | [address] | Hip (Primary Dx) | | | | [address] | | | | | | Mailcode: [address] | | | | | | [facility] | | | | | | [place], [place] | | | | | | [address] | | | | | | [phone] | | | +--------+ + + + [...] | | + +---------+ + + | [facility] DEPARTMENT OF | | [...]
--- OUTSIDE RECORDS SUMMARY | ~2020-04-04 | XMS | Encounter Summary ---
Demographics + + + | Address | [address] | | | [place] [address] | + + + | Home Phone [...] Team Providers + +------+ + | Care Moveman Name | Role | Phone | + +------+ + PCP | Unavailable | + +------+ + Encounter Details +--------+ + + + + | Date | Type | Department | Care Team | Description | +--------+ + + + + | 12/06/ | Results | Orthopaedics at | Gino Baker MD | | | 2005 | Only | [facility] [address] | [address] | | | | | [address] | [address] [place], | | | | | Mailcode: [address] | [place] [address] | | | | | [facility] | | | | | | [place] | | | | | | [address] | | | | | | [phone] | | | +--------+ + + + [...] X-RAY INJ HIP ARTHRO | Routin | 12/18/2005 | | Results for this | | WO ANESTHESIA | e | 2:00 PM | | procedure are in the | | | | PST | | results section. | + +--------+ + + + | X-RAY ARTHROGRAM HIP | Routin | 12/18/2005 | | Results for this | | RT | e | 2:00 PM | | procedure are in the | | | | PST | | results section. | + +--------+ + + + documented in this encounter Results INJ HIP ARTHRO WO ANESTHESIA (12/18/2005 2:00 PM PST) + + + + + + | Component | Value | Ref Range | Performed | Pathologist | | | | | At | Signature | + + + + + + | INJ HIP | Radiologist 1: TRIPP, | | | | | ARTHRO WO | Raegan HERRERA | | | | | ANESTHESIA | Malcom-Radiologist 2: | | | | | | MAGGIE IRBY: | | | | | | ARTHROGRAM AND INJECTION | | | | | | OF RIGHT HIP 12/18/2005 | | | | | | COMPARISON: NONE | | | | | | HISTORY: Right hip | | | | | | pain. PROCEDURE:The | | | | | | [...] | | | | | | sterilefashion. 1% | | | | | | lidocaine was used for | | | | | | local anesthesia. The | | | | | | medialapproach was | | | | | | initially chosen, with | | | | | | entrance into the ileo | | | | | | psoasbursa. The | | | | | | patient was repositioned | | | | | | in the steep left | | | | | | posterioroblique | | | | | | position. A 22 gauge | | | | | | spinal needle was placed | | | | | | into thejoint and 4 mL | | | | | | of Hypaque was injected | | | | | | to confirm | | | | | | intra-articularlocation. | | | | | | 5 mL of bupivacaine | | | | | | (5 mg/mL) and 1 mL of | | | | | | Depo-Medrol(40mg/mL) was | | | | | | then injected into the | | | | | | joint. The needle | | | | | | wasremoved. No | | | | | | complications were | | | | | | present. Dr. Queen was | | | | | | present for the entire | | | | | | procedure DISCUSSION: | | | | | | There is severe | | | | | | degenerative joint | | | | | | disease of the right | | | | | | hip, withjoint space | | | | | | narrowing and | | | | | | subchondral sclerosis. | | | | | | Heterotopicossification | | | | | | is again seen. Initial | | | | | | images demonstrate | | | | | | contrastwithin the | | | | | | iliopsoas bursa. After | | | | | | patient repositioning | | | | | | andneedle reinsertion, | | | | | | the needle was confirmed | | | | | | within the jointspace. | | | | | | Arthrographic images | | | | | | demonstrate flow of | | | | | | contrast around | | | | | | thefemoral head. The | | | | | | joint space is slightly | | | | | | improved from the | | | | | | priorstudy. The patient | | | | | | reported significant | | | | | | improvement in right hip | | | | | | painafter injection of | | | | | | the local | | | | | | anesthetic/steroid, from | | | | | | apreprocedural level of | | | | | | 10/10 to a | | | | | | postprocedural level of | | | | | | 1 to2/10. IMPRESSION: | | | | | | Technically successful | | | | | | injection of right hip. | | | | | | The patient'sright hip | | | | | | pain improved | | | | | | significantly following | | | | | | the procedure. | | | | + + + + + + + + | Specimen | + + | | + + + +---------+ + + | Performing | Address | City[facility] | Phone Number | | Organization | | | | + +---------+ + + | [facility] | | | | | RADIOLOGY | | | | + +---------+ + + ARTHROGRAM HIP RT (12/18/2005 2:00 PM PST) + + + + + + | Component | Value | Ref Range | Performed | Pathologist | | | | | At | Signature | + + + + + + | ARTHROGRAM | Radiologist 1: TRIPP, | | | | | HIP RT | Raegan HERRERA | | | | | | Malcom-Radiologist 2: | | | | | | MAGGIE IRBY: | | | | | | ARTHROGRAM AND INJECTION | | | | | | OF RIGHT HIP 12/18/2005 | | | | | | COMPARISON: NONE | | | | | | HISTORY: Right hip | | | | | | pain. PROCEDURE:The | | | | | | [...] | | | | | | sterilefashion. 1% | | | | | | lidocaine was used for | | | | | | local anesthesia. The | | | | | | medialapproach was | | | | | | initially chosen, with | | | | | | entrance into the ileo | | | | | | psoasbursa. The | | | | | | patient was repositioned | | | | | | in the steep left | | | | | | posterioroblique | | | | | | position. A 22 gauge | | | | | | spinal needle was placed | | | | | | into thejoint and 4 mL | | | | | | of Hypaque was injected | | | | | | to confirm | | | | | | intra-articularlocation. | | | | | | 5 mL of bupivacaine | | | | | | (5 mg/mL) and 1 mL of | | | | | | Depo-Medrol(40mg/mL) was | | | | | | then injected into the | | | | | | joint. The needle | | | | | | wasremoved. No | | | | | | complications were | | | | | | present. Dr. Queen was | | | | | | present for the entire | | | | | | procedure DISCUSSION: | | | | | | There is severe | | | | | | degenerative joint | | | | | | disease of the right | | | | | | hip, withjoint space | | | | | | narrowing and | | | | | | subchondral sclerosis. | | | | | | Heterotopicossification | | | | | | is again seen. Initial | | | | | | images demonstrate | | | | | | contrastwithin the | | | | | | iliopsoas bursa. After | | | | | | patient repositioning | | | | | | andneedle reinsertion, | | | | | | the needle was confirmed | | | | | | within the jointspace. | | | | | | Arthrographic images | | | | | | demonstrate flow of | | | | | | contrast around | | | | | | thefemoral head. The | | | | | | joint space is slightly | | | | | | improved from the | | | | | | priorstudy. The patient | | | | | | reported significant | | | | | | improvement in right hip | | | | | | painafter injection of | | | | | | the local | | | | | | anesthetic/steroid, from | | | | | | apreprocedural level of | | | | | | 10/10 to a | | | | | | postprocedural level of | | | | | | 1 to2/10. IMPRESSION: | | | | | | Technically successful | | | | | | injection of right hip. | | | | | | The patient'sright hip | | | | | | pain improved | | | | | | significantly following | | | | | | the procedure. | | | | + + + + + + + + | Specimen | + + | | + + + +---------+ + + | Performing | Address | City/State/Zipcode | Phone Number | | Organization | | | | + +---------+ + + | [facility] | | | | | RADIOLOGY | | | | + +---------+ + + documented in this encounter Visit Diagnoses Not on filedocumented in this encounter"
--- OUTSIDE RECORDS SUMMARY | ~2020-04-04 | XMS | Encounter Summary ---
Demographics + + + | Address | [address] | | | [place] [address] | + + + | Home Phone [...] Team Providers + +------+ + | Care Physical Anthropologist Name | Role | Phone | + [...] | | | | JOSE | [address] [facility] | | | | | | MEDICAL | [facility] | | | | | | CLINIC [address] | [address] [place], | | | | | | [address] | [place] | | | | | | [place], [place] | [address] | | | | | | [address] | Phone: | | | | | | | [phone] | | | | | | | Fax: | | | | | | | [phone] | +--------+--------+ + + + + Encounter [...] | | | | Mailcode: [address] | [place], [place] | Calcification; Back | | | | [facility] | [address] | Pain; Hip Pain | | | | [place], [place] | [phone] | | | | | [address] | | | | | | [phone] | | | +--------+---------+ + + + [...] and plan of care. KALYAN COLBY MD [facility] [address] [facility] [place] [id number] aRaul kasper - 8 12:04 PM PDT [...] w ound vac placement were undertaken with ad terminal makeup operator antibiotics until the infection cleared. She [...]
--- OUTSIDE RECORDS SUMMARY | ~2020-04-04 | XMS | Encounter Summary ---
Demographics + + + | Address | [address] | | | [place] [address] | + + + | Home Phone [...] Team Providers + +------+ + | Care Research Phlebotomist Name | Role | Phone | + [...] as of this encounter Progress Notes Interface, Career Specialist In - 08/20/2006 3:01 AM PSTCLINIC DATE: [...] views. Fox Chopra M.D. BETH / SALEEM [id number] / [id number] / [id number] / C: 02/18/2000 jerman Noland M.D. [place], [place] [address] [place] [address], [address] [place], [place] [address]Whobymhqlalhzv signed by Interface, Career Specialist In at 08/20/2006 3:01 AM PSTInterface, Career Specialist In - 08/20/2006 3:01 AM PSTCLINIC DATE: [...] from her physical therapist, Rustam Sykes, at [facility] in [place], [place], which indicates that she has been [...] in any additional way at phone number [phone]. PHYSICAL EXAMINATION: Essentially unchanged from previous exams. [...] necessary at this point. Lloyd Garcia M.D. Paper Cutting Machine Operator, Orthopedics and Rehabilitation / [id number] / [id number] / [id number] / cc: Helio Noland MD [place], [place] [id number] [place] [address] documented in this encounter Plan of Treatment Not on filedocumented as of this encounter Visit Diagnoses Not on filedocumented in this encounter"
--- OUTSIDE RECORDS SUMMARY | ~2020-04-04 | XMS | Encounter Summary ---
Demographics + + + | Address | [address] | | | [place] [address] | + + + | Home Phone | | + + + | Preferred Language | Unknown | + + + | Marital Status | | + + + | Yazidism Affiliation | [id number] | + + + | Race | Unknown | + + + | Ethnic Group | Unknown | + + + Author + + + | Author | [facility] | | | and [place] | + + + | Organization | [facility] | | | [...] Team Providers + +------+ + | Care Cascara Bark Cutter Name | Role | Phone | [...] + + | 11/25/ | Hospital | [facility] | Rustam Schmid MD | | | 2017 | Encounter | MED CTR SURGICAL | [address] [facility] | | | | | [address] | [place] | | | | | [place] [address] | [address] | | | | | [phone] | [phone] | | | | | | | [...] upon return of cul ture results from [facility]. Stent may be removed by her application services manager on Saturday or SaturdayDecember 03. AttachmentsThe following attachments cannot be sent through Care Everywhere.DIET, DISCHARGE INSTRUCTIONS FOR EATING A LOW-SALT (POLISH)KIDNEY STONES,PREVENTING (POLISH)documented in this encounter Medications at Time of [...] okay to dc home when criteria met aMrium Cuenca RN - 11/25/2016 8:27 AM PSTDuring [...] at 0545 via ground ambul ance from [facility] in [place]. C/o rt back/flank pain. Dry heaves noted. [...] Schmid MD - 11/25/2016 6:52 AM PST [facility] ADMIT HISTORY AND PHYSICAL Primary Care Physician: [...] is a 56 y.o. female, transferred from [place] emergency room with s ymptomatic right ureterolithiasis. [...] Signed by: Rustam Schmid MD, 11/25/2016 7:05 [facility] documented in this enc ounter Nursing Notes [...] Rustam Schmid MD - 2016 11:00 [facility] Pt. Name/Age/: Shelby Galdamez 56 y.o. 1960 Med. Record Number: [id number] Date of Operation/Procedure: 11/25/2016 Preoperative Diagnosis: right ureteral stones [N20.1] Post-Op Diagnosis Codes: * Right ureteral stone [N20.1] Postoperative Diagnosis: Same Surgeon: Rustam Schmid MD Stock And Station Agent(s): None Anesthesia Provider(s): Anesthesiologist: Helio Barkley MD Construction Pit Worker: Rain Edouard Anesthesia Type: General Procedure(s): RIGHT URETEROSCOPIC LASER LITHOTRIPSY PLACEMENT RIGHT URETERAL STENT PLACEMENT Operative Indications: Shelby Galdamez is a 56 y.o. year old female transferred from [facility] several hours ago, with CT demonstrating a [...] the usual sterile fashion . A 23 Taiwanese cystoscope was introduced to the bladder with [...] were removed. A 25 cm x 14 Taiwanese ureteral access sheath was threaded over the [...] back over the safety wire. A 6 Taiwanese by 26 cm diana ble-J stent was [...] Signed by: Rustam Schmid MD, 11/25/2016 11:01 [facility] documented in this enc ounter Plan of Treatment +--------+---------+ + + + | Date | Type | Specialty | Care Team | Description | +--------+---------+ + + + | 05/23/ | Office | Pain Medicine | Xiang Sepulveda, | | | 2019 | Visit | | DO [address] | | | | | | [place] | | | | | | [address] | | | | | | | [...] MD | | | | | | ([id number]) on 11/25/2016 | | | | | [...]
--- OUTSIDE RECORDS SUMMARY | ~2020-04-04 | XMS | Encounter Summary ---
Demographics + + + | Address | [address] | | | [place] [address] | + + + | Home Phone [...] Team Providers + +------+ + | Care Stone Circular Sawyer Name | Role | Phone | + [...] | Transcriptions | + + | Interface, Pad Machine Offbearer In - 03/06/2006 1:10 AM PDT Date: | | 08/16/2003Attending Surgeon: Lloyd Garcia M.D.Studio Designer(s): | | Benson Boone M.D.Preoperative Diagnosis:Right hip [...] cc per Arreaga drain to | | 8-Swiss tubes to 1 median Hemovac suctioncanister.Postoperative Plan:Ancef [...] brought to | | OperatingRoom #6 at [facility] Operating Room suite.She | | was placed [...] Vicryl mattress sutures andaddition | | of titdwx-bq-ptpqv 0 Vicryl. The fascial layer with urlhmmgncdzdaifxg-hh-jozvw 0 | | Vicryl sutures. Fadumo's fascia [...] to | | leaving the room.Lloyd Garcia M.D.Marble Installation Helper, Orthopedics and | | Rehabilitation / [id number] / [id number] / [id number] / [id number]: 08/16/2003T: | | 08/16/2003cc:Ninfa Guillen M.D.[address] [place] [address] | | | |The posterior superior iliac [...] anteriorly the interval | |between tensor fascia vl and sartorius. The gluteal fascia was split [...] Vicryl mattress sutures and | |addition of rfnobm-ux-ynnjv 0 Vicryl. The fascial layer with interrupted | |vlubdl-wj-yccfm 0 Vicryl sutures. Fadumo's fascia was closed [...] | | | |Lloyd Garcia M.D. | |Marble Installation Helper, Orthopedics and Rehabilitation | | | | / | |[id number] / [id number] / [id number] / [id number] | | | | | | | |cc: | | | |Ninfa Guillen M.D. | |[address], | |[place] [address] | + + documented in this encounter Visit Diagnoses Not on filedocumented in this encounter"
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
--- OUTSIDE RECORDS SUMMARY | ~2020-04-04 | XMS | Encounter Summary ---
Demographics + + + | Address | [address] | | | [place] [address] | + + + | Home Phone [...] Team Providers + +------+ + | Care Morning News Producer Name | Role | Phone | [...] as of this encounter Progress Notes Interface, Buggyman In - 08/20/2006 3:01 AM PSTCLINIC DATE: [...] primary care provider. Alpa Ritter LPN / [id number] / [id number] / [id number] / Tdocumented in this encounter Plan of Treatment Not on filedocumented as of this encounter Visit Diagnoses Not on filedocumented in this encounter"
--- OUTSIDE RECORDS SUMMARY | ~2020-04-04 | XMS | Encounter Summary ---
Demographics + + + | Address | [address] | | | [place] [address] | + + + | Home Phone [...] Team Providers + +------+ + | Care Petroleum Inspector Supervisor Name | Role | Phone | [...] as of this encounter Progress Notes Interface, Heading And Priming Operator In - 06/19/2006 1:01 AM PDT [place] [facility] [place] [address], [place] [address] FAX Department of Orthopaedics, [facility] [id number] October 15, 2001 Lloyd Garcia M.D. Department of Orthopedics and Rehabilitation/[facility] [id number] RE: SHELBY GALDAMEZ MR #: [id number] DOS: 10/15/[address] Desai: Thank you [...] Sincerely, Kalyan Wu M.D. TE / HS [id number] / [id number] / [id number] / [id number] cc: Chan Kirshna M.D. Department of Orthopedics and Rehabilitation/[facility] OP-31 Helio Noland M.D. [address], [place] [address]Nxnblevknbhesw signed by Interface, Heading And Priming Operator In at 06/19/2006 1: 01 AM PDTdocumented in this encounter Plan of Treatment Not on filedocumented as of this encounter Visit Diagnoses Not on filedocumented in this encounter"
--- OUTSIDE RECORDS SUMMARY | ~2020-04-04 | XMS | Encounter Summary ---
Demographics + + + | Address | [address] | | | [place] [address] | + + + | Home Phone [...] Providers + +------+ + | Care Sheet Metal Fabricator Name | Role | Phone | + [...] W | | | | ON | [facility] 4th Floor [address] | | | | | [address] | Road [place], [place] | | | | | Mailcode: CH4S | [address] | | | | | [facility] | | | | | | and Healing, | | | | | | Building 1,4th Floor | | | | | | [place], [place] | | | | | | [address] | | | | | | [phone] | | | +--------+ + + + [...]
--- OUTSIDE RECORDS SUMMARY | ~2020-04-04 | XMS | Encounter Summary ---
Demographics + + + | Address | [address] | | | [place] [address] | + + + | Home Phone [...] Team Providers + +------+ + | Care Searchlight Operator Name | Role | Phone | + +------+ + PCP | Unavailable | + +------+ + Reason for Visit + + + | Reason | Comments | + + + | Follow-up visit | right hip | + + + Office Visit - E/M Services (Routine) +--------+--------+ + + + + | Status | Reason | Specialty | Diagnoses / | Referred By | Referred To | | | | | Procedures | Contact | Contact | +--------+--------+ + + + + | Closed | | Orthopedic | Diagnoses | Curtis, | Dashawnt Faculty | | | | Surgery / | Primary | Quintin I | [address] | | | | Orthopedics | localized | [place] | Pavilion | | | | | osteoarthros | MEDICAL | Loop | | | | | is, pelvic | CLINIC [address] | Mailcode: | | | | | region and | [address] | [address] | | | | | thigh | [place], [place] | Physician's | | | | | Osteoarthros | [address] | Pavilion | | | | | is, | | [place], [place] | | | | | unspecified | | [address] | | | | | whether | | Phone: | | | | | generalized | | [phone] | | | | | or | | Fax: | | | | | localized, | | [phone] | | | | | pelvic | | | | | | | region and | | | | | | | thigh | | | | | | | Intervertebr | | | | | | | al lumbar | | | | | | | disc | | | | | | | disorder | | | | | | | with | | | | | | | myelopathy, | | | | | | | lumbar | | | | | | | region | | | +--------+--------+ + + + + Encounter Details +--------+---------+ + + + | Date | Type | Department | Care Team | Description | +--------+---------+ + + + | 03/19/ | Office | Orthopaedics at | Gino Baker MD | Osteoarthritis of | | 2006 | Visit | [address] | [address] | Hip (Primary Dx) | | | | [address] | [address] [place], | | | | | Mailcode: [address] | [place] [address] | | | | | [facility] | | | | | | [place], [place] | | | | | | [address] | | | | | | [phone] | | | +--------+---------+ + + + [...] + + + + | Temperature | 35.8 C (96.5 F) | 03/19/2007 7:41 AM | | | | | PDT [...] + + documented in this encounter Progress Gino Mcclellan - 03/19/2007 8:52 AM PDTNno longer having any GI issues or bleeding issues. Somewhat more active than in past. Takes 120 vicodin/month Walks with glut medius limp. 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 Pain is in inner groin and posteriorly. Leg goes numb when she sits on hard objects. Got dramatic improvement in pain with hip injection. 20 days relief. New xrays show arthritis of joint and hheterotopic ossif. In muscles. Temp normal. Rom of hip pretty good with no flextion contracture. Wt is 238 by report. Age 47. Advised that I would do total Hip. Advised that the posterior pain might not be halped by t he surgery-- she indicates moxt of the pain in in the inner groin. Plan for surgery the end of Jun 06. 8: 52 AM PDTdocumented in this encounter Plan of Treatment Not on filedocumented as of this encounter Procedures + +--------+ + + + | Procedure Name | Priori | Date/Time | Associated Diagnosis | Comments | | | ty | | | | + +--------+ + + + | X-RAY FEMUR 2 VIEWS | Routin | 03/19/2007 | Osteoarthritis of | Results for this | | RIGHT | e | 8:32 AM | Hip | procedure are in the | | | | PDT | | results section. | + +--------+ + + + documented in this encounter Results FEMUR 2 VIEWS RIGHT (03/19/2007 8:32 AM PDT) + + + + + + | Component | Value | Ref Range | Performed | Pathologist | | | | | At | Signature | + + + + + + | FEMUR 2 | Radiologist 1: | | | | | VIEWS RIGHT | [facility]OWERS, | | | | | | M.DJuan JoseSTUDY: Right femur | | | | | | radiographs TECHNIQUE: | | | | | | AP and frog lateral | | | | | | right hip and proximal | | | | | | femur | | | | | | HISTORY:Osteoarthritis | | | | | | of right hip COMPARISON: | | | | | | 05/23/06. DISCUSSION: | | | | | | Moderately severe medial | | | | | | osteoarthritis is noted | | | | | | with medial jointspace | | | | | | narrowing, femoral head | | | | | | neck osteophyte | | | | | | formation andsubchondral | | | | | | sclerosis. There is | | | | | | deformity of | | | | | | theintertrochanteric | | | | | | region. Heterotopic | | | | | | ossification with | | | | | | unchangedcontour is seen | | | | | | within the anterior and | | | | | | lateral tissues | | | | | | adjacentto the femoral | | | | | | neck and subtrochanteric | | | | | | proximal | | | | | | femur.IMPRESSION: | | | | | | Moderately severe right | | | | | | hip medial | | | | | | osteoarthritis. 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 | | | | | | Little interval change | | | | | | compared to 05/23/06. | | | | + + + + + + + + | Specimen | + + | | + + + +---------+ + + | Performing | Address | City/State/[facility] | Phone Number | | Organization | [...]
--- OUTSIDE RECORDS SUMMARY | ~2020-04-04 | XMS | Encounter Summary ---
Demographics + + + | Address | [address] | | | [place] [address] | + + + | Home Phone [...] Team Providers + +------+ + | Care Bituminous Paving Machine Operator Name | Role | Phone [...] | | | | | (sacroiliac) | [facility], | | | | | joint | Rd | 10th Floor | | | | | inflammation | [place], [place] | [place], [place] | | | | | ([facility]) | [address] | [address] | | | | | Procedures | | Phone: | | | | | CT INJ | | [phone] | | | | | SACROILIAC | | Fax: | | | | | JOINT | | [phone] | | | | | W/NEEDLE | [...] | | | | | | Rd [place], | | | | | | | [place] | | | | | | | [address] | | | | | | | Phone: | | | | | | | [phone] | | | | | | | Fax: | | | | | | | [phone] | +--------+--------+ + + + + Encounter [...] | | | | Mailcode: [address] | [place], [place] | ([facility]) | | | | [facility] | [address] | | | | | [place], [place] | [phone] | | | | | [address] | | | | | | [phone] | | | +--------+---------+ + + + [...] and plan of care. TYRONE COLBY MD [facility] [address] [facility] Mailcode: [address] [facility] [phone] esfaye Saenz PA-C - 02/20/2010 3:15 PM [...] None. | | | | | | Staff Registered Nurse: Dr. Moss, | | | | | | vice president of development. | | | | | | Pastry Sous Chef: | | | | | | Sue [...] the | | | | | | it desktop support technician. Professional Athletes Coach | | | | | | imaging [...]
--- OUTSIDE RECORDS SUMMARY | ~2020-04-04 | XMS | Encounter Summary ---
Demographics + + + | Address | [address] | | | [place] [address] | + + + | Home Phone [...] Providers + +------+ + | Care Manager Trading Name | Role | Phone | + [...] | | | is of hip | [facility] | [address] | | | | | Procedures | Rd | Rd [place], | | | | | CONSULT TO | [place], [place] | [place] [address] | | | | | ORTHOPEDICS | [address] | | | | | | AND [...] | | | | | [place] | [address] [facility] | | | | | | MEDICAL | [facility] | | | | | | CLINIC [address] | [address] | | | | | | [address] | [place] | | | | | | [place], [place] | [address] | | | | | | [address] | | +--------+--------+ + + + + [...] Pavilion | | | | | | [place], [place] | | | | | | [address] | | | | | | [phone] | | | +--------+---------+ + + + [...] 05/23/2004, for hip pain who returns [facility] after a right hip injection [...] states, that he recieves a letter from [facility] indicating the continued need. She has a [...]
--- OUTSIDE RECORDS SUMMARY | ~2020-04-04 | XMS | Encounter Summary ---
Demographics + + + | Address | [address] | | | [place] [address] | + + + | Home Phone [...] Providers + +------+ + | Care Videotape Editor Name | Role | Phone | [...] | | | is of hip | [facility] | [address] | | | | | Procedures | Rd | Rd [place], | | | | | CONSULT TO | [place], [place] | [place] [address] | | | | | ORTHOPEDICS | [address] | | | | | | AND [...] | | | | | [place] | [address] [facility] | | | | | | MEDICAL | [facility] | | | | | | CLINIC PO | [address] | | | | | | [address] | [place] | | | | | | [place], [place] | [address] | | | | | | [address] | | +--------+--------+ + + + + [...] Pavilion | | | | | | [place], [place] | | | | | | [address] | | | | | | [phone] | | | +--------+---------+ + + + [...] for hip pain who returns to [facility] after a right hip injection arthrogram [...] states, that he recieves a letter from [facility] indicating the continued need. She has [...]
--- OUTSIDE RECORDS SUMMARY | ~2020-04-04 | XMS | Encounter Summary ---
Demographics + + + | Address | [address] | | | [place] [address] | + + + | Home Phone [...] Providers + +------+ + | Care Telecommunications Officer Name | Role | Phone | [...] as of this encounter Progress Notes Interface, Carpenter Prototype In - 04/28/2005 10:57 PM PDTClinic Date: [...] longer any fluid pocket. Lloyd Garcia M.D. Valet Attendant, Orthopedics and Rehabilitation / [id number] / [id number] / [id number] / [id number] cc: Everett Ibrahim MD [address] [place], [place] [address]Qszrwflwrlaahp signed by Interface, Carpenter Prototype In at 04/28/2005 10:57 PM PDTdocumented in this encounter Plan of Treatment Not on filedocumented as of this encounter Visit Diagnoses Not on filedocumented in this encounter"
--- OUTSIDE RECORDS SUMMARY | ~2020-04-04 | XMS | Encounter Summary ---
Demographics + + + | Address | [address] | | | [place] [address] | + + + | Home Phone | | + + + | Preferred Language | Unknown | + + + | Marital Status | | + + + | Yazdanism Affiliation | [id number] | + + + [...] Team Providers + +------+ + | Care Reliability Specialist Name | Role | Phone | [...] + | 03/17/ | Office | [facility] | Ladarius Martínez PA | MAMADOU on CPAP (Primary | | 2012 | Visit | SLEEP DISORDER [address] | [address] | Dx) | | | | [address] [place] | [place], [place] | | | | | [place] [address] | [address] | | | | | [phone] | | | +--------+---------+ + + + [...] Ravi obtained from: [facility] [place] pressure is: 9 cm ResMed S9: Pressure: [...] to go to [facility] [place] to get a fitting for her mask that will allow it to connect to her hose properly. I will follow up again in 1 month, sooner prn. Fifteen minutes were spent tgnx-zu-tpbz, wi th the majority of time spent [...] [place] | | | | | | [id number] | | | | | | | | +--------+---------+ + + + documented as of this encounter Visit Diagnoses + + | Diagnosis | + + | MAMADOU on CPAP - Primary Obstructive sleep apnea (adult) (pediatric) | + + documented in this encounter"
--- OUTSIDE RECORDS SUMMARY | ~2020-04-04 | XMS | Encounter Summary ---
Demographics + + + | Address | [address] | | | [place] [address] | + + + | Home Phone [...] Team Providers + +------+ + | Care Materials Inspector Name | Role | Phone | [...] Pavilion | | | | | | [place], [place] | | | | | | [address] | | | | | | [phone] | | | +--------+ + + + [...] + +---------+ + + | [facility] DEPARTMENT OF | | | | [...] + +---------+ + + | [facility] DEPARTMENT OF | | | | [...] ON | | | | | | [facility], ACC# [id number], | | | | | | DONE [...]
--- OUTSIDE RECORDS SUMMARY | ~2020-04-04 | XMS | Encounter Summary ---
Demographics + + + | Address | [address] | | | [place] [address] | + + + | Home Phone [...] Providers + +------+ + | Care Public Policy Coordinator Name | Role | Phone | + +------+ + | Marta Jenkins PIT FURNACE MELTER | PCP | | + +------+ + Encounter Details +--------+ + + + + | Date | Type | Department | Care Team | Description | +--------+ + + + + | 11/19/ | Documentati | Dig[facility]ive [facility] | Wanda López ACNP | | | 2019 | on | Center at [facility] [address] | [address] | | | | | [address] | [address] [place], | | | | | Mailcode: [place] | [place] [address] | | | | | for Health and | [phone] | | | | | [facility] [address] | | | | | | [place], [place] | | | | | | [address] | | | | | | [phone] | | | +--------+ + + + [...]
--- OUTSIDE RECORDS SUMMARY | ~2020-04-04 | XMS | Encounter Summary ---
Demographics + + + | Address | [address] | | | [place] [address] | + + + | Home Phone [...] Providers + +------+ + | Care Data Science And Iot Manager Name | Role | Phone | + +------+ + | Marta Jenkins TRUCK RAILROAD AND BUS MOTOR MECHANIC | PCP | | + +------+ + [...] | Jamie Mailcode: [address] [place], | | | | | [place], [place] | [place] [address] | | | | | [address] | | | | | | [phone] | | | +--------+ + + + [...]
--- OUTSIDE RECORDS SUMMARY | ~2020-04-04 | XMS | Encounter Summary ---
Demographics + + + | Address | [address] | | | [place] [address] | + + + | Home Phone [...] Team Providers + +------+ + | Care Peoplesoft Financials Consultant Name | Role | Phone | [...] | | | | | | [place], | | | | | | | [place] | | | | | | | [address] | | | | | | | Phone: | | | | | | | [phone] | | | | | | | Fax: | | | | | | | [phone] | +--------+--------+ + + + + Encounter [...] | | arthroplasty) | | | | [place], [place] | | | | | | [address] | | | | | | [phone] | | | +--------+---------+ + + + [...] still well controlled at this point with [place]. She has been wbat and is overall [...] view Consult to rehabilitation physical therapy outside [facility] documented in this encounter Plan of [...]
--- OUTSIDE RECORDS SUMMARY | ~2020-04-04 | XMS | Encounter Summary ---
Demographics + + + | Address | [address] | | | [place] [address] | + + + | Home Phone [...] Team Providers + +------+ + | Care Underwriting Intern Name | Role | Phone | [...] as of this encounter Progress Notes Interface, Av Specialist In - 06/03/2006 3:06 AM PDTCLINIC DATE: [...] by her new primary care physician in [place], and she is requesting a repeat hip [...] believe that this would be inadvisable. Lloyd Gacria M.D. Child Care Associate Teacher, Orthopedics and Rehabilitation / HS [id number] / [id number] / 16047 / 15090 cc: Ninfa Guillen M.D. [address] [facility], [place] [address]Vxvzbpdhidkoic signed by Interface, Av Specialist In at 06/03/2006 3:06 AM PDTInterface, Av Specialist In - 06/03/2006 3:06 AM PDTCLINIC DATE: [...] go ahead and send her back to [facility] Radiology Musculoskeletal specialist for a right intraarticular hip injection as this is what she wants. We will currently hold off on hip replacement due to her young age, and she can follow up back in the clinic in 6months' time. Tr Mcghee M.D. Lloyd Garcia M.D. / [id number] / [id number] / 73883 / Tdocumented in this encounter Plan of Treatment Not on filedocumented as of this encounter Visit Diagnoses Not on filedocumented in this encounter"
--- OUTSIDE RECORDS SUMMARY | ~2020-04-04 | XMS | Encounter Summary ---
Demographics + + + | Address | [address] | | | [place] [address] | + + + | Home Phone [...] Team Providers + +------+ + | Care Gate Watchman Name | Role | Phone | + [...] | Transcriptions | + + | Interface, Artist'S Model In - 09/19/2005 9:05 PM PST Date: | | 10/08/2003Attending Surgeon: Marguerite Araujo M.D.Outside Sales Engineer(s): | | Stas Menjivar M.D.Preoperative Diagnosis(es):Right hip [...] recoveryroom in stable condition.Marguerite Araujo, | | [facility] / [id number] / [id number] / 70860 / T: 10/08/2003 | |a clean granulating [...] | | | |JEMarcus / SALEEM | |[id number] / [id number] / 85720 / | | | | | + + OPERATION RECORD (10/08/2003) + + | Transcriptions | + + | Interface, Artist'S Model In - 09/19/2005 9:05 PM PST Date: | | 10/08/2003Attending Surgeon: Lloyd Garcia M.D.Outside Sales Engineer(s): | | Benson Boone M.D. Stas Menjivar, [...] | from the OR table to the [facility] with the hipsflexed and abduction pillow in place and | | brought from the Operating Room tothe Recovery Room in stable and satisfactory condition | | having tolerated theprocedure well without apparent complication. All counts were | | reportedcorrect prior to leaving the Operating Room. There were no apparenthypotensive | | episodes or other anesthetic difficulties.Lloyd Garcia M.D.Scuba Instructor, | | Orthopedics and Rehabilitation / [id number] / [id number] / 79810 / T: | | 10/08/2003 | |tube [...] | | | |Lloyd Garcia M.D. | |Scuba Instructor, Orthopedics and Rehabilitation | | | | / | |[id number] / [id number] / 56928 / | | | | | + + OPERATION RECORD (10/05/2003) + + | Transcriptions | + + | Interface, Artist'S Model In - 09/19/2005 9:05 PM PST Date: | | 10/05/2003Attending Surgeon: Lloyd Garcia M.D.Outside Sales Engineer(s): | | Benson Boone M.D.Preoperative Diagnosis(es):Right hip [...] | case.Benson Boone M.D.Lloyd Garcia M.D.RT / [id number] / [id number] / 73137 / 80717H: | | 10/05/2003T: 10/05/2003 | |flap for [...] | | | |RT / HS | |[id number] / [id number] / 25700 / 05540 | | | | | + + documented in this encounter Visit Diagnoses Not on filedocumented in this encounter"
--- OUTSIDE RECORDS SUMMARY | ~2020-04-04 | XMS | Encounter Summary ---
Demographics + + + | Address | [address] | | | [place] [address] | + + + | Home Phone [...] Providers + +------+ + | Care Plastic Machine Operator Name | Role | Phone [...] | 10/06/ | Telephone | [facility] | Augie Valdivia MD | Appointment | | 2012 | | GASTROENTEROLOGY | [address], [place] | | | | | [address] | [address] [place], [place] | | | | | [address] [place], [place] | [address] | | | | | [address] | | | | | | [phone] | | | +--------+ + + + [...] [place] | | | | | | [address] | | | | | | | | +--------+---------+ + + + documented as of this encounter Visit Diagnoses Not on filedocumented in this encounter"
--- OUTSIDE RECORDS SUMMARY | ~2020-04-04 | XMS | Encounter Summary ---
Demographics + + + | Address | [address] | | | [place] [address] | + + + | Home Phone [...] Providers + +------+ + | Care Geotechnical Engineer Name | Role | Phone | [...] Pavilion | | | | | | [place], [place] | | | | | | [address] | | | | | | [phone] | | | +--------+ + + + [...]
--- OUTSIDE RECORDS SUMMARY | ~2020-04-04 | XMS | Encounter Summary ---
Demographics + + + | Address | [address] | | | [place] [address] | + + + | Home Phone [...] + + + + + | Casandra Smtih | ROBERTO | [place] | | + + + + + Care Team Providers + +------+ + | Care Student Teacher Name | Role | Phone | [...] [facility] | | | | | | [address] | | | | | | Loop Physician's | | | | | | [place], [facility] Floor | | | | | | [place], [place] | | | | | | [address] | | | | | | [phone] | | | +--------+ + + + [...] + + + +---------+ + + | [place]-3 Fatty | Take by mouth. | | [...]
--- OUTSIDE RECORDS SUMMARY | ~2020-04-04 | XMS | Encounter Summary ---
Demographics + + + | Address | [address] | | | [place] [address] | + + + | Home Phone [...] Team Providers + +------+ + | Care Bus And Rail Operator Name | Role | Phone | + +------+ + PCP | Unavailable | + +------+ + Encounter Details +--------+ + + + + | Date | Type | Department | Care Team | Description | +--------+ + + + + | 11/22/ | Results | Orthopaedics at | Peng Muro | | | 2003 | Only | [facility] [address] MD,PhD [address] | | | | | [address] | [address] | | | | | Mailcode: PV430 | [place], [place] | | | | | [facility] | [address] | | | | | [place], [place] | [phone] | | | | | [address] | | | | | | [phone] | | | +--------+ + + + [...] + +---------+ + + | [facility] | | | | | [...] + +---------+ + + | [facility] OF | | | | | RADIOLOGY | | | | + +---------+ + + documented in this encounter Visit Diagnoses Not on filedocumented in this encounter"
--- OUTSIDE RECORDS SUMMARY | ~2020-04-04 | XMS | Encounter Summary ---
Demographics + + + | Address | [address] | | | [place] [address] | + + + | Home Phone [...] Providers + +------+ + | Care Lead Man Over All Dies In Pattern Shop Name | Role | Phone | + +------+ + | Marta Jenkins RESTAURANT WORKER | PCP | | + +------+ [...] | Jamie Mailcode: [address] [place], | | | | | [place], [place] | [place] [address] | | | | | [address] | | | | | | [phone] | | | +--------+ + + + [...]
--- OUTSIDE RECORDS SUMMARY | ~2020-04-04 | XMS | Encounter Summary ---
Demographics + + + | Address | [address] | | | [place] [address] | + + + | Home Phone [...] Team Providers + +------+ + | Care Perianesthesia Nurse Name | Role | Phone | [...] as of this encounter Progress Notes Interface, Onion Farmer In - 04/28/2005 7:30 PM PDTClinic Date: [...] followup is scheduled today. Lloyd Garcia M.D. Desk Monitor, Orthopedics and Rehabilitation / [id number] / [id number] / 13530 / [id number] cc: Ninfa Guillen M.D. [address] [place] [address]Roxzfihtsagsun signed by Interface, Onion Farmer In at 04/28/2005 7:3 0 PM PDTdocumented in this encounter Plan of Treatment Not on filedocumented as of this encounter Visit Diagnoses Not on filedocumented in this encounter"
--- OUTSIDE RECORDS SUMMARY | ~2020-04-04 | XMS | Encounter Summary ---
Demographics + + + | Address | [address] | | | [place] [address] | + + + | Home Phone [...] Team Providers + +------+ + | Care Grain Blender Name | Role | Phone | + [...] | Transcriptions | + + | Interface, Lab Systems Analyst In - 09/19/2005 9:05 PM PST Date: | | 10/01/2003Attending Surgeon: Lloyd Garcia M.D.Director Park(s): | | Benson Boone M.D.Preoperative Diagnoses:Right hip [...] cheilectomy on July | | 2002 via [facility]. It was complicated by greater trochanter [...] Boone, | | Haleigh Garcia M.D.RT / [id number] / [id number] / 20260 / 36858B: 10/01/2003T: 10/02/2003 | |2002, was demonstrating that [...] | | | |RT / HS | |[id number] / [id number] / 97317 / 65033 | | | | | + + documented in this encounter Visit Diagnoses Not on filedocumented in this encounter"
--- OUTSIDE RECORDS SUMMARY | ~2020-04-04 | XMS | Encounter Summary ---
Demographics + + + | Address | [address] | | | [place] [address] | + + + | Home Phone [...] Team Providers + +------+ + | Care Remote Sensing Surveyor Name | Role | Phone | [...] | | | | | | [address] [place], [place] | | | | | | [address] | | | | | | [phone] | | | +--------+---------+ + + + [...] | + + +--------+ + + | FL COLLECTION VENOUS | Procedures | Routin | [...] + + + + | PRODUCT | [id number] | | [facility] | | | UNIT [...] OF | [address] | [place] [address] | | | PATHOLOGY | [address] | | | + + + + + | [facility] DEPARTMENT OF | [address] | [place] [address] | | | PATHOLOGY | [address] [...] Performed At | + + + | [id number] Estimated GFR > 60 mL/min/1.73 sq m if non- | [facility] | | Serbian [id number] Estimated GFR > 60 mL/min/1.73 sq m if | DEPARTMENT OF | | [place] GFR is estimated using the MDRD equation [...] | + + + + + | [facility] | [facility] | [place] [address] | | | PATHOLOGY | [address] | | | + + + + + | [facility] | [address] [place] [address] | [place] [address] | | | PATHOLOGY | [address] [...] | + + + + + | [facility] DEPARTMENT OF | [address] [facility] | [place] [address] | | | PATHOLOGY | [address] | | | + + + + + | [facility] DEPARTMENT OF | [address] | [place] [address] | | | PATHOLOGY | [address] [...] | + + + + + | [facility] DEPARTMENT OF | [address] | [place] [address] | | | PATHOLOGY | [address] | | | + + + + + | [facility] DEPARTMENT OF | [address] | [place] [address] | | | PATHOLOGY | [address] [...] view image for the detailed interpretation from [employer] results. | CARDIOLOGY | | | | + + + + + + + + | Performing | Address | City/State/Zipcode | Phone Number | | Organization | | | | + + + + + | [facility] DEPT OF | [address] | [place], [place] | | | CARDIOLOGY | [facility] | [address] | | + + + + + | [facility] OF | [address] | [place], [place] | | | CARDIOLOGY | [address] | [address] | | + + + + + documented in this encounter Visit Diagnoses + + | Diagnosis | + + | Other specified pre-operative examination - Primary | + + documented in this encounter
--- OUTSIDE RECORDS SUMMARY | ~2020-04-04 | XMS | Encounter Summary ---
Demographics + + + | Address | [address] | | | [place] [address] | + + + | Home Phone [...] of this encounter Progress Notes Interface, Medical Assistant Supervisor In - 06/11/2006 3:03 AM PDTCLINIC DATE: [...] clinic today. It was done in a [facility] on December 08, 2001. There [...] on an as-needed basis. Vince Krishna M.D. [facility] / [id number] / [id number] / [id number] / cc: Ninfa Guillen M.D. [address] [place] [address] Kalyan Wu M.D. [facility] Lloyd Garcia M.D. [facility] Orthopedics and RehabiliationElectronically signed by Interface, Medical Assistant Supervisor In at 0 06/11/2006 3:03 AM PDTdocumented in this encounter Plan of Treatment Not on filedocumented as of this encounter Visit Diagnoses Not on filedocumented in this encounter"
--- OUTSIDE RECORDS SUMMARY | ~2020-04-04 | XMS | Encounter Summary ---
Demographics + + + | Address | [address] | | | [...] Team Providers + +------+ + | Care Ditch Inspector Name | Role | Phone | [...] | | | | | [place], | | | | | | [place] [address] | | | +--------+ + + + [...]
--- OUTSIDE RECORDS SUMMARY | ~2020-04-04 | XMS | Encounter Summary ---
Demographics + + + | Address | [address] | | | [place] [address] | + + + | Home Phone [...] Team Providers + +------+ + | Care Soil Biology Teacher Name | Role | Phone | [...]
--- OUTSIDE RECORDS SUMMARY | ~2020-04-04 | XMS | Encounter Summary ---
Demographics + + + | Address | [address] | | | [place] [address] | + + + | Home Phone [...] Team Providers + +------+ + | Care Soaking Pits Supervisor Name | Role | Phone | + +------+ + | Trvais Mcginnis MD | PCP | | + +------+ + Encounter Details +--------+ + + + + | Date | Type | Department | Care Team | Description | +--------+ + + + + | 11/09/ | Documentati | Vascular Access at | Lis Banuelos | | | 2010 | on | [facility] [address] | HERMINIO Swain [address] | | | | | [address] | [address] | | | | | [facility] | Rd [place], [place] | | | | | [place], [place] | [address] | | | | | [address] | | | | | | [phone] | | | +--------+ + + + [...]
--- OUTSIDE RECORDS SUMMARY | ~2020-04-04 | XMS | Encounter Summary ---
Demographics + + + | Address | [address] | | | [place] [address] | + + + | Home Phone [...] Team Providers + +------+ + | Care Spindle Plumber Name | Role | Phone | + [...] | | | | | | [place], [facility] Floor | | | | | | [place], [place] | | | | | | [address] | | | | | | [phone] | | | +--------+ + + + [...] X-RAY HIP 2 | Med Rec No: [id number] | | | | | VIEWS | Name: | | | | | RIGHT W/ | SHELBY GALDAMEZ C | | | | | PELVIS 1 | Birthday: 1960 | | | | | VIEW | Sex: F | | | | | | Alias:Patient Location: | | | | | | [id number]: Outpatient | | | | | | [...] # | | | | | | [id number]:PELVIS | | | | | | ONE [...]
--- OUTSIDE RECORDS SUMMARY | ~2020-04-04 | XMS | Encounter Summary ---
Demographics + + + | Address | [address] | | | [place] [address] | + + + | Home Phone | | + + + | Preferred Language | Unknown | + + + | Marital Status | | + + + | Shinto Affiliation | 1076 | + + + [...] Team Providers + +------+ + | Care Seafood Harvester Name | Role | Phone | + [...] [place] | | | | | [place] [address] | [place] [address] | | | | | [phone] | [phone] | | | | | | | [...] [place] | | | | | | [address] | | | | | | | | +--------+---------+ + + + documented as of this encounter Visit Diagnoses Not on filedocumented in this encounter"
--- OUTSIDE RECORDS SUMMARY | ~2020-04-04 | XMS | Encounter Summary ---
Demographics + + + | Address | [address] | | | [place] [address] | + + + | Home Phone [...] Providers + +------+ + | Care Manufacturing Production Manager Name | Role | Phone | [...] | | | unspecified | | Rd [place], | | | | | whether | | [place] | | | | | generalized | | [address] | | | | | or | | Phone: | | | | | localized, | | [phone] | | | | | pelvic | | Fax: | | | | | region and | | [phone] | | | | | thigh Pain [...] | | | | Mailcode: [id number] | [place], [place] | internal joint | | | | [facility] | [address] | prosthesis (HCC) | | | | [place], [place] | [phone] | (Primary Dx) | | | | [address] | | | | | | [phone] | | | +--------+---------+ + + + [...] has been indic ated for [facility] in [place], but they want the ok from [place]. [...] prn f/u here as she lives near [place]. d ocumented in this encounter Plan of [...]
--- OUTSIDE RECORDS SUMMARY | ~2020-04-04 | XMS | Encounter Summary ---
Demographics + + + | Address | [address] | | | [place] [address] | + + + | Home Phone [...] Providers + +------+ + | Care Glass Robot Operator Name | Role | Phone | [...] + + + | [facility] | [address] | [place] [address] | | | PATHOLOGY | [address] | | | + + + + + | [facility] | [address] [place] [address] [address] | [place] [address] | | | PATHOLOGY | [address] [...] by | | | | | | [facility] | | | | | | [facility]. | | | | + + + + + + + + | Specimen | + + | | + + + + + + + | Performing | Address | City/State/Zipcode | Phone Number | | Organization | | | | + + + + + | [facility] | [address] | [place] [address] | | | LABORATORY | | | [...] | + + + + + | [facility] | [address] | [place] [address] | | | PATHOLOGY | [address] | | | + + + + + | [facility] | [facility] [address] | [place] [address] | | | PATHOLOGY | [address] [...] + + + | [facility] | [address] | [place] [address] | | | PATHOLOGY | [address] | | | + + + + + | [facility] | [address] [place] [address] [address] | [place] [address] | | | PATHOLOGY | [address] [...] by | | | | | | [facility] | | | | | | [facility]. | | | | + + + + + + + + | Specimen | + + | | + + + + + + + | Performing | Address | City/State/Zipcode | Phone Number | | Organization | | | | + + + + + | [facility] | [address] | [place] [address] | | | LABORATORY | | | [...] + + + + + | [facility] DEPARTMENT | [address] | [place] [address] | | | PATHOLOGY | [address] | | | + + + + + | [facility] DEPARTMENT OF | [address] | [place] [address] | | | PATHOLOGY | [address] | | | + + + + + documented in this encounter Visit Diagnoses Not on filedocumented in this encounter"
--- OUTSIDE RECORDS SUMMARY | ~2020-04-04 | XMS | Encounter Summary ---
Demographics + + + | Address | [address] | | | [place] [address] | + + + | Home Phone [...] Team Providers + +------+ + | Care Anodic Treater Name | Role | Phone | + [...] | | | | Mailcode: PV430 | [place], [place] | | | | | [facility] | [address] | | | | | [place], [place] | [phone] | | | | | [address] | | | | | | [phone] | | | +--------+ + + + [...]
--- OUTSIDE RECORDS SUMMARY | ~2020-04-04 | XMS | Encounter Summary ---
Demographics + + + | Address | [address] | | | [place] [address] | + + + | Home Phone | | + + + | Preferred Language | Unknown | + + + | Marital Status | | + + + | Catholic Affiliation | 1076 | + + + | Race | Unknown | + + + | Ethnic Group | Unknown | + + + Author + + + | Author | [facility] | | | and [place] | + + + | Organization | [facility] | | | [...] Providers + +------+ + | Care Clinical Services Manager Name | Role | Phone | [...] | | [address] | Y, Online Marketer | Morbid obesity with | | | | [place], [place] | | BMI of 50.0-59.9, | | | | [address] | | adult (HCC) | | | | [phone] | | | +--------+ + + + [...] [place] | | | | | | [address] | | | | | | | [...] + + + + | RBC | 4.79 | 3.70 - 5.10 | REFERENCE | | | | | M/uL | LAB | | [...] | | | Absolute | performed at [facility];[address] | [address] | LAB | | | | [place] | | [facility] | | | | [address];[place] [address] | | LABORATORY | | + + + + + + + + | Specimen | + + | Blood | + + + + + + + | Performing | Address | City/State/Zipcode | Phone Number | | Organization | | | | + + + + + | REFERENCE LAB | [address] [facility] | [place] | [phone] | | [facility] | [address] | [address] | | | LABORATORY | | | | + + + + + | REFERENCE LAB | [address] [facility] | [place] | | | [facility] | [address] | [address] | | | LABORATORY | | | [...] [place] | | | | | | [place] | | | | | | [address] | | | | + + + + + + + + | Specimen | + + | Blood | + + + + + + + | Performing | Address | City/State/Zipcode | Phone Number | | Organization | | | | + + + + + | REFERENCE LAB | [address] | [place] | [phone] | | [facility] | [address] | [address] | | | LABORATORY | | | | + + + + + | REFERENCE LAB | [address] | [place] | | | [facility] | [address] | [address] | | | LABORATORY | | | | + + + + + [place] (07/29/2019 10:58 AM PDT) + + + + + + | Component | Value | Ref Range | Performed | Pathologist | | | | | At | Signature | + + + + + + | [place], | None DetectedComment: | 0.0 - 0.9 ug/L | REFERENCE | | | Ser/Plas | This test was developed | | LAB | | | | and its performance | | [facility] | | | | characteristicsdetermine | | LABORATORY | | | | d by [facility]. It has not | | | [...] | | | | | performed at [facility], [address] | | | | | | [facility] | | | | | | [place] [address] | | | | + + + + + + + + | Specimen | + + | Blood | + + + + + + + | Performing | Address | City/State/Zipcode | Phone Number | | Organization | | | | + + + + + | REFERENCE LAB | [address] [place] [address] | [place], [place] | [phone] | | [facility] | [address] | [address] | | | LABORATORY | | | | + + + + + | REFERENCE LAB | [address] [place] [address] | [place] | | | [facility] | [address] | [address] | | | LABORATORY | | | [...] | | [facility] | | | | [address];[place] [address] | | LABORATORY | | + + + + + + + + | Specimen | + + | Blood | + + + + + + + | Performing | Address | City/State/Zipcode | Phone Number | | Organization | | | | + + + + + | REFERENCE LAB | [address] [place] [address] | [place], [place] | [phone] | | [facility] | [address] | [address] | | | LABORATORY | | | | + + + + + | REFERENCE LAB | [address] [place] [address] | [place], [place] | | | [facility] | [address] | [address] | | | LABORATORY | | | [...] REFERENCE | | | | performed at [facility];[address] | | LAB | | | | [place] | | [facility] | | | | [place] [address] | | LABORATORY | | + + + + + + + + | Specimen | + + | Blood | + + + + + + + | Performing | Address | City/State/Zipcode | Phone Number | | Organization | | | | + + + + + | REFERENCE LAB | [address] [place] [address] | [place] | [phone] | | [facility] | [address] | [address] | | | LABORATORY | | | | + + + + + | REFERENCE LAB | [address] [place] [address] | [place] | | | [facility] | [address] | [address] | | | LABORATORY | | | [...] REFERENCE | | | | performed at [facility];[address] | | LAB | | | | [place] | | [facility] | | | | [address];[place] [address] | | LABORATORY | | + + + + + + + + | Specimen | + + | Blood | + + + + + + + | Performing | Address | City/State/Zipcode | Phone Number | | Organization | | | | + + + + + | REFERENCE LAB | [address] | [place] | [phone] | | [facility] | [address] | [address] | | | LABORATORY | | | | + + + + + | REFERENCE LAB | [address] | [place] | | | [facility] | Bl[address] | [address] | | | LABORATORY | | | | + + + + + documented in this encounter Visit Diagnoses + + | Diagnosis | + + | Left hip pain Pain in joint, pelvic region and thigh | + + | Morbid obesity with BMI of 50.0-59.9, adult (HCC) | + + documented in this encounter"
--- OUTSIDE RECORDS SUMMARY | ~2020-04-04 | XMS | Encounter Summary ---
Demographics + + + | Address | [address] | | | [place] [address] | + + + | Home Phone [...] Team Providers + +------+ + | Care Publicity Director Name | Role | Phone | [...] | | | [address] | [address] [place], [place] | | | | | Mailcode: [id number] | [address] | | | | | [facility] | | | | | | [place], [place] | | | | | | [address] | | | | | | [phone] | | | +--------+ + + + [...] | HIP 1 VIEW | Radiologist 1: ARMADNO | | | | | RIGHT | [...]
--- OUTSIDE RECORDS SUMMARY | ~2020-04-04 | XMS | Encounter Summary ---
Demographics + + + | Address | [address] | | | [place] [address] | + + + | Home Phone [...] Team Providers + +------+ + | Care Seam Stayer Name | Role | Phone | + [...] | | | | | | | [place], | | | | | | | [place] [address] | +--------+--------+ + + + + Encounter Details +--------+---------+ + + + | Date | Type | Department | Care Team | Description | +--------+---------+ + + + | 09/08/ | Office | Radiation Oncology | Kevin Arenas MD | Heterotopic Tissue | | 2007 | Visit | at [facility] [address] | [address] | (Primary Dx) | | | | [address] | [place], [place] | | | | | [place], 4th floor | [address] | | | | | [place], [place] | [phone] | | | | | [address] | | | | | | [phone] | | | +--------+---------+ + + + [...] will treatment her today. 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
--- OUTSIDE RECORDS SUMMARY | ~2020-04-04 | XMS | Encounter Summary ---
Demographics + + + | Address | [address] | | | [place] [address] | + + + | Home Phone [...] Team Providers + +------+ + | Care Chain Machine Operator Name | Role | Phone [...] | | | | | | [place], | | | | | | | [place] | | | | | | | [address] | | | | | | | Phone: | | | | | | | [phone] | | | | | | | Fax: | | | | | | | [phone] | +--------+--------+ + + + + Encounter [...] | | arthroplasty) | | | | [place], [place] | | | | | | [address] | | | | | | [phone] | | | +--------+---------+ + + + [...] still well controlled at this point with [place]. She has been wbat and is overall [...] view Consult to rehabilitation physical therapy outside [facility] documented in this encounter Plan of [...] | | + +---------+ + + | [facility] DEPARTMENT OF | | | [...]
--- OUTSIDE RECORDS SUMMARY | ~2020-04-04 | XMS | Encounter Summary ---
Demographics + + + | Address | [address] | | | [place] [address] | + + + | Home Phone [...] Team Providers + +------+ + | Care News Editor Name | Role | Phone | [...]
--- OUTSIDE RECORDS SUMMARY | ~2020-04-04 | XMS | Encounter Summary ---
Demographics + + + | Address | [address] | | | [place] [address] | + + + | Home Phone [...] Providers + +------+ + | Care Product Safety Administrator Name | Role | Phone | [...] | | | Surgery [address] | [place], [place] | | | | | [address] | [address] | | | | | Mailcode: [id number] | [phone] | | | | | [facility] | | | | | | [place], [place] | | | | | | [address] | | | | | | [phone] | | | +--------+ + + + [...] to | | | | | | Vnaand the patient | | | | | [...] + + + | [facility] | [address] | [place] [address] | | | LABORATORY | | | [...] | + + + + + | [facility] | [address] | [place] [address] | | | PATHOLOGY | [address] | | | + + + + + | [facility] | [address] | [place] [address] | | | PATHOLOGY | [address] [...] DEPARTMENT OF | [address] | [place] [address] | | | PATHOLOGY | [address] | | | + + + + + | [facility] DEPARTMENT OF | [address] | [place] [address] | | | PATHOLOGY | [address] [...] + + + + + | [facility] DEPARTMENT OF | [address] | [place] [address] | | | PATHOLOGY | [address] | | | + + + + + | [facility] DEPARTMENT OF | [address] | [place] [address] | | | PATHOLOGY | [address] | | | + + + + + documented in this encounter Visit Diagnoses Not on filedocumented in this encounter
--- OUTSIDE RECORDS SUMMARY | ~2020-04-04 | XMS | Encounter Summary ---
Demographics + + + | Address | [address] | | | [place] [address] | + + + | Home Phone [...] Team Providers + +------+ + | Care Sprayer Automatic Spray Machine Name | Role | Phone | [...]
--- OUTSIDE RECORDS SUMMARY | ~2020-04-04 | XMS | Encounter Summary ---
Demographics + + + | Address | [address] | | | [place] [address] | + + + | Home Phone [...] Team Providers + +------+ + | Care Cement Truck Loader Name | Role | Phone | [...] | | | | Mailcode: [id number] | [place], [place] | not done yet | | | | [facility] | [address] | 07-18.) | | | | [place], [place] | [phone] | | | | | [address] | | | | | | [phone] | | | +--------+ + + + [...]
--- OUTSIDE RECORDS SUMMARY | ~2020-04-04 | XMS | Encounter Summary ---
Demographics + + + | Address | [address] | | | [place] [address] | + + + | Home Phone | | + + + | Preferred Language | Unknown | + + + | Marital Status | | + + + | Confucianism Affiliation | 1076 | + + + [...] Team Providers + +------+ + | Care Radial Drill Operator Name | Role | Phone | [...] + | 08/02/ | Office | [facility] | Ladarius Martínez PA | MAMADOU on CPAP (Primary | | 2013 | Visit | SLEEP DISORDER [address] | [address] | Dx) | | | | [address] [place] | [place], [place] | | | | | [place] [address] | [address] | | | | | [phone] | | | +--------+---------+ + + + [...] S9 obtained from: [facility] [place] Pressure: 9-16 cm 95%: 13.6 cm Maximum: [...] would like to get her equipment from [facility] in [place] instead of [facility]. Review of Systems Objective: Physical Exam Assessment: [...] months, sooner prn. Thirty minutes were spent ijvi-kk-mali, wi th the majority of time spent in counseling. Ladarius Martínez PA-C cc: Dr. Barry documented in this enco unter Miscellaneous Notes Miscellaneous - ONBASE SCAN [facility] - 08/02/2014 12:00 AM PST iscellaneous - ONBASE SCAN [facility] - 08/02/2014 12:00 AM PSTEle ctronically signed [...] RODRIGUEZ | | | | | | [id number] | | | | | | | | +--------+---------+ + + + documented as of this encounter Visit Diagnoses + + | Diagnosis | + + | MAMADOU on CPAP - Primary Obstructive sleep apnea (adult) (pediatric) | + + documented in this encounter"
--- OUTSIDE RECORDS SUMMARY | ~2020-04-04 | XMS | Encounter Summary ---
Demographics + + + | Address | [address] | | | [place] [address] | + + + | Home Phone [...] + +------+ + | Care Director Medical Writing Name | Role | Phone | + [...] as of this encounter Progress Notes Interface, Umbrella Mender In - 04/19/2006 3:09 AM PDTCLINIC DATE: [...] questions. Jason Castano M.A. Orthopedics / HS [id number] / [id number] / [id number] / Tdocumented in this encounter Plan of Treatment Not on filedocumented as of this encounter Visit Diagnoses Not on filedocumented in this encounter"
--- OUTSIDE RECORDS SUMMARY | ~2020-04-04 | XMS | Encounter Summary ---
Demographics + + + | Address | [address] | | | [place] [address] | + + + | Home Phone [...] Team Providers + +------+ + | Care Prepress Specialist Name | Role | Phone | + +------+ + | Marta Jenkins INTERNET CAFE MANAGER | PCP | | + +------+ [...] | Jamie Mailcode: [address] [place], | | | | | [place], [place] | [place] [address] | | | | | [address] | | | | | | [phone] | | | +--------+ + + + [...]
--- OUTSIDE RECORDS SUMMARY | ~2020-04-04 | XMS | Encounter Summary ---
Demographics + + + | Address | [address] | | | [place] [address] | + + + | Home Phone [...] Team Providers + +------+ + | Care Mercury Cracking Tester Name | Role | Phone | + +------+ + | Marta Jenkins ASSOCIATE DIRECTOR OF NURSING | PCP | | + +------+ + Encounter Details +--------+ + + + + | Date | Type | Department | Care Team | Description | +--------+ + + + + | 11/19/ | Documentati | Digestive Health | Wanda López ACNP | | | 2019 | on | Center at [facility] [address] | [address] | | | | | [address] | Roxann Ayala [place], | | | | | Mailcode: [place] | [place] [address] | | | | | for Health and | [phone] | | | | | [facility] [address] | | | | | | [place], [place] | | | | | | [address] | | | | | | [phone] | | | +--------+ + + + [...]
--- OUTSIDE RECORDS SUMMARY | ~2020-04-04 | XMS | Encounter Summary ---
Demographics + + + | Address | [address] | | | [place] [address] | + + + | Home Phone [...] Providers + +------+ + | Care Color Stripper Name | Role | Phone | + [...] | | | unspecified | | Rd [place], | | | | | whether | | [place] | | | | | generalized | | [address] | | | | | or | | Phone: | | | | | localized, | | [phone] | | | | | pelvic | | Fax: | | | | | region and | | [phone] | | | | | thigh Pain [...] | | | | Mailcode: PV430 | [place], [place] | inflammatory | | | | [facility] | [address] | reaction due to | | | | [place], [place] | [phone] | internal joint | | | | [address] | | prosthesis ([facility]); | | | | [phone] | | EE-NO SHOW | +--------+---------+ + [...]
--- OUTSIDE RECORDS SUMMARY | ~2020-04-04 | XMS | Encounter Summary ---
Demographics + + + | Address | [address] | | | [place] [address] | + + + | Home Phone [...] Providers + +------+ + | Care Spa Supervisor Name | Role | Phone | [...] | | | [address] | [address] [place], [place] | | | | | Mailcode: PV430 | [address] | | | | | [facility] | | | | | | [place], [place] | | | | | | [address] | | | | | | [phone] | | | +--------+ + + + [...] 10/30/99 | | | | | | [id number] hours. | | | | | | Dictated 11/01/99. | | | | | | FINDINGS: There is a | | | | | | shallow right rotatory | | | | | | lumbar convexity. | | | | | | [id number] S1 flexion | | | | | [...]
--- OUTSIDE RECORDS SUMMARY | ~2020-04-04 | XMS | Encounter Summary ---
Demographics + + + | Address | [address] | | | [place] [address] | + + + | Home Phone [...] Team Providers + +------+ + | Care Anode Crew Supervisor Name | Role | Phone [...] as of this encounter Discharge Summaries Interface, Pipefitter Helper In - 03/06/2006 1:10 AM PDTAdmission Date: [...] time of discharge. She initially had a RECRUITING SCHEDULER that was weaned off as well as [...] for her staple removal. Benson Boone M.D. Llody Garcia M.D. RT:x90 P DTdocumented in this encounter Plan of Treatment Not on filedocumented as of this encounter Visit Diagnoses Not on filedocumented in this encounter"
--- OUTSIDE RECORDS SUMMARY | ~2020-04-04 | XMS | Encounter Summary ---
Demographics + + + | Address | [address] | | | [place] [address] | + + + | Home Phone [...] Providers + +------+ + | Care Digital Forensics Investigator Name | Role | Phone | + [...] | | | | | or | [address] | [address] | | | | | localized, | | [place], [place] | | | | | pelvic | | [address] | | | | | region and | | Phone: | | | | | thigh | | [phone] | | | | | Intervertebr | | Fax: | | | | | al lumbar | | [phone] | | | | | disc | [...] | [facility] [address] | [address] [facility] | Hip (Primary Dx) | | | | [address] | [address] [place], | | | | | Mailcode: PV430 | [place] [address] | | | | | [facility] | | | | | | [place], [place] | | | | | | [address] | | | | | | [phone] | | | +--------+---------+ + + + [...]
--- OUTSIDE RECORDS SUMMARY | ~2020-04-04 | XMS | Encounter Summary ---
Demographics + + + | Address | [address] | | | [place] [address] | + + + | Home Phone | | + + + | Preferred Language | Unknown | + + + | Marital Status | | + + + | Baptist Affiliation | 1076 | + + + | Race | Unknown | + + + | Ethnic Group | Unknown | + + + Author + + + | Author | [facility] | | | and [place] | + + + | Organization | [facility] | | | [...] Providers + +------+ + | Care Credit Analyst Name | Role | Phone | [...] + | 09/26/ | Telephone | [facility] | Ladarius Martínez PA | Other | | 2016 | | SLEEP DISORDER [address] | [address] | | | | | [address] [place] | [place], [place] | | | | | [place] [address] | [address] | | | | | [phone] | | | +--------+ + + + [...] Miscellaneous Notes Telephone Encounter - Maegan Munoz Insurance Broker - 09/27/2016 11:33 AM PSTPatient ca lled back appointment has been scheduled. elephone Encounter - Maegan Munoz Insurance Broker - 09/26/2016 1:12 PM PSTCalled left message [...] [place] | | | | | | [id number] | | | | | | | | +--------+---------+ + + + documented as of this encounter Visit Diagnoses Not on filedocumented in this encounter"
--- OUTSIDE RECORDS SUMMARY | ~2020-04-04 | XMS | Encounter Summary ---
Demographics + + + | Address | [address] | | | [place] [address] | + + + | Home Phone [...] Team Providers + +------+ + | Care Chlorobutadiene Scrubber Operator Name | Role | Phone | [...]
--- OUTSIDE RECORDS SUMMARY | ~2020-04-04 | XMS | Encounter Summary ---
Demographics + + + | Address | [address] | | | [place] [address] | + + + | Home Phone [...] Team Providers + +------+ + | Care Vascular Nurse Name | Role | Phone | [...] + + + + | [facility] | [address] | [place] [address] | | | PATHOLOGY | [address] | | | + + + + + | [facility] | [address] [place] [address] [address] | [place] [address] | | | PATHOLOGY | [address] | | | + + + + [...] by | | | | | | [facility] | | | | | | [facility]. | | | | + + + + + + + + | Specimen | + + | | + + + + + + + | Performing | Address | City/State/Zipcode | Phone Number | | Organization | | | | + + + + + | [facility] | [address] | [place] [address] | | | LABORATORY | | | [...] + + + + + | [facility] | [address] | [place] [address] | | | PATHOLOGY | [address] | | | + + + + + | [facility] | [facility] [address] | [place] [address] | | | PATHOLOGY | [address] [...] + + + + | [facility] | [address] | [place] [address] | | | PATHOLOGY | [address] | | | + + + + + | [facility] | [address] [place] [address] [address] | [place] [address] | | | PATHOLOGY | [address] [...] by | | | | | | [facility] | | | | | | [facility]. | | | | + + + + + + + + | Specimen | + + | | + + + + + + + | Performing | Address | City/State/Zipcode | Phone Number | | Organization | | | | + + + + + | [facility] | [address] | [place] [address] | | | LABORATORY | | | [...] + + + + + | [facility] DEPARTMENT | [address] | [place] [address] | | | PATHOLOGY | [address] | | | + + + + + | [facility] DEPARTMENT OF | [address] | [place] [address] | | | PATHOLOGY | [address] | | | + + + + + documented in this encounter Visit Diagnoses Not on filedocumented in this encounter"
--- OUTSIDE RECORDS SUMMARY | ~2020-04-04 | XMS | Encounter Summary ---
Demographics + + + | Address | [address] | | | [place] [address] | + + + | Home Phone [...] Providers + +------+ + | Care Research Program Manager Name | Role | Phone | + +------+ + | Yuki Pantoja MD | PCP | | + +------+ + Encounter Details +--------+ + + + + | Date | Type | Department | Care Team | Description | +--------+ + + + + | 06/21/ | [facility] | Orthopaedics at | Kalyan Colby MD | Osteoarthritis of | | 2008 | | [address] | [address] | Hip (Primary Dx) | | | | [address] | [address] | | | | | Mailcode: PV430 | [place], [place] | | | | | [facility] | [address] | | | | | [place], [place] | [phone] | | | | | [address] | | | | | | [phone] | | | +--------+ + + + [...] X-RAY HIP 2 | Med Rec No: [id number] | | | | | VIEWS | Name: | | | | | RIGHT W/ | SHELBY GALDAMEZ | | | | | PELVIS 1 | Birthday: 1960 | | | | | VIEW | Sex: F | | | | | | Alias:Patient Location: | | | | | | [id number]: Outpatient | | | | | | [...] # | | | | | | [id number]:PELVIS | | | | | | ONE [...]
--- OUTSIDE RECORDS SUMMARY | ~2020-04-04 | XMS | Encounter Summary ---
Demographics + + + | Address | [address] | | | [place] [address] | + + + | Home Phone [...] Team Providers + +------+ + | Care Press Operator Carbon Blocks Name | Role | Phone | + [...] as of this encounter Progress Notes Interface, Hay Rake Operator In - 08/22/2006 5:13 AM PSTCLINIC DATE: [...] Valium. PHYSICAL EXAMINATION: She ambulates with a qrtxixuk-yv-zahcxm leg coxalgic gait leaning over the right [...] that they are appropriate. Lloyd Garcia MD Hot Plate Press Operator Department of Orthopaedics / [id number] / [id number] / [id number] / [id number] C: 01/19/2000 jerman cc: Helio Noland MD [address] [place], [place] [address] [place] [id number] signed by Interface, Hay Rake Operator In at 08/22/2006 5:13 AM PSTdocumented in this encounter Plan of Treatment Not on filedocumented as of this encounter Visit Diagnoses Not on filedocumented in this encounter"
--- OUTSIDE RECORDS SUMMARY | ~2020-04-04 | XMS | Encounter Summary ---
Demographics + + + | Address | [address] | | | [place] [address] | + + + | Home Phone [...] Providers + +------+ + | Care Data Steward Name | Role | Phone | + +------+ + | Marta Jenkins DEAN OF WOMEN | PCP | | + +------+ + [...] | Jamie Mailcode: [address] [place], | | | | | [place], [place] | [place] [address] | | | | | [address] | | | | | | [phone] | | | +--------+ + + + [...] [place] DEPARTMENT | [address] | [place] [address] | | | PATHOLOGY | [address] | | | + + + + + | [facility] DEPARTMENT OF | [address] | [place] [address] | | | PATHOLOGY | [address] [...] | + + + + + | [facility] | [address] | [place] [address] | | | PATHOLOGY | [address] | | | + + + + + | [facility] | [address] [place] [address] [address] | [place] [address] | | | PATHOLOGY | [address] [...] | + + + + + | [facility] DEPARTMENT OF | [address] | [place] [address] | | | PATHOLOGY | [address] | | | + + + + + | [facility] DEPARTMENT OF | [address] | [place] [address] | | | PATHOLOGY | [address] [...]
--- OUTSIDE RECORDS SUMMARY | ~2020-04-04 | XMS | Clinical Summary ---
Demographics + + + | Address | [address] | | | [place] [address] | + + + | Home Phone [...] Team Providers + +------+ + | Care Government Guard Name | Role | Phone | + +------+ + | JenkinsMarta jackson MANAGER MAC | PCP | | + +------+ + Source Comments LION is fully live on both [facility] Ambulatory and [facility] InPatient.[facility] [...] | | + + + +---------+------+------+-------+ | [place]-3 Fatty | Take by mouth. | | [...] | | | + +--------+ +--------+-------+---------+--------+ | PEDIATRIC SPEECH LANGUAGE PATHOLOGIST MEDICAID | PEDIATRIC SPEECH LANGUAGE PATHOLOGIST | [id number] | 06/01/20 | | | [...] gigi | | | 7 (Home) | [address] | + +--------+ +--------+ + + | Shelby Galdamez | Third | Self | [birth year] | | [address] | | | [employer] | | 1960 | [phone] | [address] [place] | | | Liabil | | | 7 (Home) | [address] | | | ity | | | | | + +--------+ +--------+ + + Advance Directives + + + + + | Type | Date Recorded | Patient | Explanation | | | | Mask Layout Designer | | + + + + + | Advance | | | | | Directives and | | | | | Living Will | | | | + + + + + | Power of | | | | | Cognos Lead | | | | + + + [...]
--- OUTSIDE RECORDS SUMMARY | ~2020-04-04 | XMS | Encounter Summary ---
Demographics + + + | Address | [address] | | | [place] [address] | + + + | Home Phone [...] Team Providers + +------+ + | Care Endless Track Vehicle Supervisor Name | Role | Phone | [...] as of this encounter Progress Notes Interface, Cashier Manager In - 07/14/2006 1:10 AM PDTCLINIC DATE: [...] improve her hip pain. Lloyd Garcia M.D. Ergonomics Technician, Orthopedics and Rehabilitation / [id number] / [id number] / [id number] / [id number] cc: Helio Xie M.D. [place], [place] [id number] signed by Interface, Cashier Manager In at 07/14/2006 1:1 0 AM PDTdocumented in this encounter Plan of Treatment Not on filedocumented as of this encounter Visit Diagnoses Not on filedocumented in this encounter"
--- OUTSIDE RECORDS SUMMARY | ~2020-04-04 | XMS | Encounter Summary ---
Demographics + + + | Address | [address] | | | [place] [address] | + + + | Home Phone [...] Providers + +------+ + | Care College [employer] University Business Manager Name | Role | Phone | [...] as of this encounter Progress Notes Interface, Transit Planning Director In - 07/18/2006 3:04 AM PDTCLINIC DATE: [...] further treatment options. Brigette Lim P.A.-C / [id number] / [id number] / [id number] / Tdocumented in this encounter Plan of Treatment Not on filedocumented as of this encounter Visit Diagnoses Not on filedocumented in this encounter"
--- OUTSIDE RECORDS SUMMARY | ~2020-04-04 | XMS | Encounter Summary ---
Demographics + + + | Address | [address] | | | [place] [address] | + + + | Home Phone [...] Team Providers + +------+ + | Care Solar Hot Water Installer Name | Role | Phone | [...] | | | at [address] | [facility] | | | | | [address] | [place] [address] | | | | | [address] | | | | | | Luis Alfredo, [address] [place] [address] | | | | | | [place], [place] | | | | | | [address] | | | | | | [phone] | | | +--------+ + + + [...] view image for the detailed interpretation from [employer] results. | CARDIOLOGY | | | | + + + + + + + + | Performing | Address | City/State/Zipcode | Phone Number | | Organization | | | | + + + + + | [facility] | [address] | [place], [place] | | | CARDIOLOGY | [address] | [address] | | + + + + + | [facility] | [address] | [place], [place] | | | CARDIOLOGY | [address] | [address] | | + + + + + documented in this encounter Visit Diagnoses + + | Diagnosis | + + | Other specified pre-operative examination | + + documented in this encounter
--- OUTSIDE RECORDS SUMMARY | ~2020-04-04 | XMS | Encounter Summary ---
Demographics + + + | Address | [address] | | | [place] [address] | + + + | Home Phone [...] as of this encounter Discharge Summaries Interface, Skydiving Instructor In 02/27/2006 3:05 AM PDTAdmission Date: 09/13/2003 [...] readmitted. DISPOSITION: She was discharged to a halfway facility. MEDICATIONS: 1. Docusate #80. 2. Oxycodone #80. 3. Indomethacin 25 mg, p.o. t.i.d. for six weeks. FOLLOWUP: She will see Dr. Garcia in two weeks. She is to continue wearing her abduction brace. If she has any changes in her wound she is to notify our clinic as soon as possible. Benson Boone M.D. Lloyd Garcia M.D. RT:x54 [id number] signed by Interface, Skydiving Instructor In at 02/27/2006 3:05 AM [facility]ed in this encounter Plan of Treatment Not on filedocumented as of this encounter Visit Diagnoses Not on filedocumented in this encounter"
--- OUTSIDE RECORDS SUMMARY | ~2020-04-04 | XMS | Encounter Summary ---
Demographics + + + | Address | [address] | | | [place] [address] | + + + | Home Phone [...] Providers + +------+ + | Care Accountant Manager Name | Role | Phone | + +------+ + PCP | Unavailable | + +------+ + Encounter Details +--------+ + + + + | Date | Type | Department | Care Team | Description | +--------+ + + + + | // | Results | | Other, Faculty | | | 2003 | Only | | [phone] | | +--------+ + + + + [...] + + + + + | [facility] DEPARTMENT OF | [address] | [place] [address] | | | PATHOLOGY | [address] | | | + + + + + | [facility] DEPARTMENT OF | [address] | [place] [address] | | | PATHOLOGY | [address] [...] CENTER OF | [address] | [place] [address] | | | PATHOLOGY | [address] | | | + + + + + | [facility] OF | [address] | [place] [address] | | | PATHOLOGY | [address] [...] + + + | [facility] | [address] | [place] [address] | | | LABORATORY | | | [...] DEPARTMENT OF | [address] | [place] [address] | | | PATHOLOGY | [address] | | | + + + + + | [facility] DEPARTMENT OF | [address] | [place] [address] | | | PATHOLOGY | [address] [...] + + + + + | [facility] DEPARTMENT OF | [address] [facility] | [place] [address] | | | PATHOLOGY | [address] | | | + + + + + | [facility] DEPARTMENT OF | [address] | [place] [address] | | | PATHOLOGY | [address] [...] + + + + + | [facility] DEPARTMENT OF | [facility] | [place] [address] | | | PATHOLOGY | [address] | | | + + + + + | [place] DEPARTMENT OF | [address] | [place] [address] | | | PATHOLOGY | [address] [...] + + + + | [facility] | [address] [facility] | [place] [address] | | | PATHOLOGY | [address] | | | + + + + + | [facility] | [address] [place] [address] | [place] [address] | | | PATHOLOGY | [address] [...] + + + + | [facility] | [address] [facility] | [place] [address] | | | PATHOLOGY | [address] | | | + + + + + | [facility] | [facility] | [place] [address] | | | PATHOLOGY | [address] [...] DEPARTMENT OF | [address] | [place] [address] | | | PATHOLOGY | [address] | | | + + + + + | [facility] DEPARTMENT OF | [address] | [place] [address] | | | PATHOLOGY | [address] | | | + + + + + CREATININE, PLASMA (10/04/2003 6:15 AM PST) + +-------+ + + + | Component | Value | Ref Range | Performed | Pathologist | | | | | At | Signature | + +-------+ + + + | CREATININE | 0.8 | 0.6 - 1.1 mg/dL | [facility] | | | PLASMA | | [...] + + + + + | [facility] DEPARTMENT OF | [address] [facility] | [place] [address] | | | PATHOLOGY | [address] | | | + + + + + | [facility] DEPARTMENT OF | [address] [facility] | [place] [address] | | | PATHOLOGY | [address] [...] DEPARTMENT OF | [address] | [place] [address] | | | PATHOLOGY | [address] | | | + + + + + | [facility] DEPARTMENT | [address] | [place] [address] | | | PATHOLOGY | [address] [...] + + + + + | [facility] DEPARTMENT OF | [address] | [place] [address] | | | PATHOLOGY | [address] | | | + + + + + | [facility] DEPARTMENT OF | [address] | [place] [address] | | | PATHOLOGY | [address] [...] + + + + | [facility] | [address] | [place] [address] | | | PATHOLOGY | [address] | | | + + + + + | [facility] | [address] | [place] [address] | | | PATHOLOGY | [address] | | | + + + + + documented in this encounter Visit Diagnoses Not on filedocumented in this encounter"
--- OUTSIDE RECORDS SUMMARY | ~2020-04-04 | XMS | Encounter Summary ---
Demographics + + + | Address | [address] | | | [place] [address] | + + + | Home Phone [...] Team Providers + +------+ + | Care Stack Matcher Name | Role | Phone | + [...] | [facility] | MEGAN Reddy [address] | | | | | [address] | [address] | | | | | Loop Physician's | [place], [place] | | | | | [address], 3rd floor | [address] | | | | | [place], [place] | [phone] | | | | | [address] | | | | | | [phone] | | | +--------+ + + + [...]
--- OUTSIDE RECORDS SUMMARY | ~2020-04-04 | XMS | Encounter Summary ---
Demographics + + + | Address | [address] | | | [place] [address] | + + + | Home Phone [...] Team Providers + +------+ + | Care Media Monitor Name | Role | Phone | [...] as of this encounter Progress Notes Interface, Dialysis Tech In - 06/11/2006 3:03 AM PDT [place] [facility] [place] [address], [place] [address] FAX Department of Orthopaedics, [facility] [id number] November 27, 2001 Kalyan Wu M.D. [facility]-Orthopedics PV 430 RE: SHELBY GALDAMEZ [...] the low back several years ago in [place], [place] which she described as showing deteriorating vertebrae at "T11-T12." She has not had any physical therapy for back. She does work out at a gym under the direction of physical therapy in [place]. She would like to start some exercises [...] contact me. Sincerely yours, Vince Krishna M.D. [facility] / [id number] / [id number] / [id number] / [id number] cc: Lloyd Garcia M.D. Orthopedics PV 430 docume nted in this encounter Plan of Treatment Not on filedocumented as of this encounter Visit Diagnoses Not on filedocumented in this encounter
--- OUTSIDE RECORDS SUMMARY | ~2020-04-04 | XMS | Encounter Summary ---
Demographics + + + | Address | [address] | | | [place] [address] | + + + | Home Phone [...] Providers + +------+ + | Care Clinical Field Specialist Name | Role | Phone | [...] Pavilion | | | | | | [place], [place] | | | | | | [address] | | | | | | [phone] | | | +--------+ + + + [...] | AB, IGM | Test performed by [facility] | | | | | | [facility] | | | | | | [employer]. | | | | + + + + + + + + | Specimen | + + | | + + + + + + + | Performing | Address | City/State/Zipcode | Phone Number | | Organization | | | | + + + + + | [facility] | [address] | [place] [address] | | | LABORATORY | | | [...] by | | | | | | [facility] | | | | | | [facility]. | | | | + + + + + + + + | Specimen | + + | | + + + + + + + | Performing | Address | City/State/Zipcode | Phone Number | | Organization | | | | + + + + + | [facility] | [address] | [place] [address] | | | LABORATORY | | | [...] | + + + + + | [facility] | [address] | [place] [address] | | | LABORATORY | | | [...] | AB TOTAL | Test performed by [facility] | | | | | | [facility] | | | | [...] | + + + + + | [facility] | [address] | [place] [address] | | | LABORATORY | | | [...] | [facility] | [address] | [place] [address] | | | PATHOLOGY | [address] | | | + + + + + | [facility] | [address] | [place] [address] | | | PATHOLOGY | [address] [...] + + + + + | [facility] DEPARTMENT OF | [address] | [place] [address] | | | PATHOLOGY | [address] | | | + + + + + | [place] DEPARTMENT OF | [address] | [place] [address] | | | PATHOLOGY | [address] [...] | [facility] | [facility] | [place] [address] | | | PATHOLOGY | [address] | | | + + + + + | [facility] | [facility] | [place] [address] | | | PATHOLOGY | [address] [...] DEPARTMENT OF | [address] | [place] [address] | | | PATHOLOGY | [address] | | | + + + + + | [facility] DEPARTMENT OF | [address] | [place] [address] | | | PATHOLOGY | [address] [...] + + + + + | [facility] DEPARTMENT OF | [address] | [place] [address] | | | PATHOLOGY | [address] | | | + + + + + | [facility] DEPARTMENT OF | [address] | [place] [address] | | | PATHOLOGY | [address] [...] DEPARTMENT OF | [address] | [place] [address] | | | PATHOLOGY | [address] | | | + + + + + | [facility] | [address] | [place] [address] | | | PATHOLOGY | [address] [...] | + + + + + | [facility] | [address] | [place] [address] | | | LABORATORY | | | [...] + + + + + | [facility] DEPARTMENT OF | [address] | [place] [address] | | | PATHOLOGY | [address] | | | + + + + + | [facility] DEPARTMENT OF | [address] | [place] [address] | | | PATHOLOGY | [address] [...] + + + + + | [facility] DEPARTMENT OF | [address] | [place] [address] | | | PATHOLOGY | [address] | | | + + + + + | [facility] DEPARTMENT OF | [address] | [place] [address] | | | PATHOLOGY | [address] [...] + + + + | PRODUCT | [id number] | | [facility] | | | UNIT [...] | [facility] | [address] [facility] | [place] [address] | | | PATHOLOGY | [address] | | | + + + + + | [facility] | [address] [place] [address] | [place] [address] | | | PATHOLOGY | [address] [...] + + + + | PRODUCT | [id number] | | [facility] | | | UNIT [...] + + + + + | [facility] DEPARTMENT OF | [address] | [place] [address] | | | PATHOLOGY | [address] | | | + + + + + | [facility] DEPARTMENT OF | [address] | [place] [address] | | | PATHOLOGY | [address] [...] DEPARTMENT OF | [address] | [place] [address] | | | PATHOLOGY | [address] | | | + + + + + | [facility] | [address] | [place] [address] | | | PATHOLOGY | [address] [...] | | | | | available on [email or web address] and | | | | | | [...] | | + +---------+ + + | [facility] DEPARTMENT OF | | | | | [...] | + + + + + | [facility] | [address] | [place] [address] | | | LAB-MICRO | | | [...] + + + + + | [facility] | [address] | [place] [address] | | | LAB-MICRO | | | [...] | + + + + + | [facility] | [address] | [place] [address] | | | LAB-MICRO | | | | + + + + + documented in this encounter Visit Diagnoses Not on filedocumented in this encounter"
--- OUTSIDE RECORDS SUMMARY | ~2020-04-04 | XMS | Encounter Summary ---
Demographics + + + | Address | [address] | | | [place] [address] | + + + | Home Phone [...] Team Providers + +------+ + | Care Inside Tester Name | Role | Phone | [...] as of this encounter Progress Notes Interface, Processing Technician In - 04/28/2005 10:57 PM PDTClinic Date: [...] not need a refill. Lloyd Garcia M.D. [facility] / [id number] / [id number] / [id number] / [id number] cc: Leonel Floyd M.D. [address] [place], [place] [address]Ghdlycejgryfke signed by Interface, Processing Technician In at 04/28/2005 10:57 PM PDTdocumented in this encounter Plan of Treatment Not on filedocumented as of this encounter Visit Diagnoses Not on filedocumented in this encounter"
--- OUTSIDE RECORDS SUMMARY | ~2020-04-04 | XMS | Encounter Summary ---
Demographics + + + | Address | [address] | | | [place] [address] | + + + | Home Phone [...] Team Providers + +------+ + | Care Eight Arm Operator Name | Role | Phone | [...] | [facility] | MEGAN Reddy [address] | | | | | [address] | [address] | | | | | Loop Physician's | [place], [place] | | | | | [place], 3rd floor | [address] | | | | | [place], [place] | [phone] | | | | | [address] | | | | | | [phone] | | | +--------+ + + + [...] + + + | [facility] | [address] | [place] [address] | | | [facility] | | | | + [...] + + + | [facility] | [address] | [place] [address] | | | [facility] | | | | + + + + + documented in this encounter Visit Diagnoses Not on filedocumented in this encounter"
--- OUTSIDE RECORDS SUMMARY | ~2020-04-04 | XMS | Encounter Summary ---
Demographics + + + | Address | [address] | | | [place] [address] | + + + | Home Phone [...] Team Providers + +------+ + | Care Global Security Architect Name | Role | Phone | [...] as of this encounter Progress Notes Interface, Marker Shipments In - 07/14/2006 1:10 AM PDTCLINIC DATE: [...] in the system. Dariana Champion M.A. / [id number] / [id number] / [id number] / Watt Marker Shipments In - 07/10/2006 1:00 AM PDTCLINIC DATE: [...] insurance at and spoke with Timbo. This sales donor recruitment representative stated that this prescription had been [...] over the phone. Dariana Champion M.A. / [id number] / [id number] / [id number] / Tdocumented in this encounter Plan of Treatment Not on filedocumented as of this encounter Visit Diagnoses Not on filedocumented in this encounter"
--- OUTSIDE RECORDS SUMMARY | ~2020-04-04 | XMS | Encounter Summary ---
Demographics + + + | Address | [address] | | | [place] [address] | + + + | Home Phone [...] Team Providers + +------+ + | Care Academic Affairs Dean Name | Role | Phone | + [...] as of this encounter Progress Notes Interface, Automated Weaver In - 06/23/2006 1:07 AM PDTCLINIC DATE: [...] Ken Mejia M.D. Lloyd Garcia M.D. / [id number] / [id number] / [id number] / Tdocumented in this encounter Plan of Treatment Not on filedocumented as of this encounter Visit Diagnoses Not on filedocumented in this encounter"
--- OUTSIDE RECORDS SUMMARY | ~2020-04-04 | XMS | Encounter Summary ---
Demographics + + + | Address | [address] | | | [place] [address] | + + + | Home Phone [...] Team Providers + +------+ + | Care Apricot Packer Name | Role | Phone | [...] | Transcriptions | + + | Interface, Missing Persons Investigator In - 02/27/2006 3:05 AM PDT Date: | | 09/27/2003Attending Surgeon: Lloyd Garcia M.D.Newspaper Press Operator Apprentice(s): | | Benson Boone M.D.Preoperative Diagnosis:Right hip [...] Boone M.D.Lloyd Garcia M.D.RT / | | [id number] / [id number] / [id number] / [id number]: 09/27/2003T: 09/28/2003 | |( ) which was [...] | | | |RT / HS | |[id number] / [id number] / 06364 / 72147 | | | | | + + OPERATION RECORD (09/25/2003) + + | Transcriptions | + + | Interface, Missing Persons Investigator In - 02/27/2006 3:05 AM PDT Date: | | 09/25/2003Attending Surgeon: Lloyd Garcia M.D.Newspaper Press Operator Apprentice(s): | | MD [place], | | [...] | [facility]duction [facility] | | [...] [facility] | | [place].General endotracheal anesthesia was administered. Antibiotics werewithheld | [...] | procedure well without apparent complications.Lloyd Garcia M.D.Fuel Testing Technician, | | Orthopedics and Rehabilitation / [id number] / [id number] / [id number] / [id number]: 09/25/2003T: | | 09/26/2003 | |plate and [...] back to Operating Room #[facility] at [facility]. | |General endotracheal anesthesia was administered. [...] had been reopened for her trochanteric ORIF. Rboin pus | |exuded. Deep cultures were sent. [...] | | | |Lloyd Garcia M.D. | |Fuel Testing Technician, Orthopedics and Rehabilitation | | | | / | |[id number] / [id number] / 69978 / 01263 | | | | | + + documented in this encounter Visit Diagnoses Not on filedocumented in this encounter"
--- OUTSIDE RECORDS SUMMARY | ~2020-04-04 | XMS | Encounter Summary ---
Demographics + + + | Address | [address] | | | [place] [address] | + + + | Home Phone [...] + + + | Casandra Smith | RBOERTO | [place] | | + + + + + Care Team Providers + +------+ + | Care Trench Digging Machine Operator Name | Role | Phone [...] | | Surgery -Hand | [address] [facility] | | | | | Surgery [address] | [place] [address] | | | | | [address] | | | | | | Mailcode: [id number] | | | | | | Physician's Pavilion | | | | | | [place], [place] | | | | | | [address] | | | | | | [phone] | | | +--------+ + + + [...] + + + + | PRODUCT | [id number] | | [facility] | | | UNIT [...] [facility] DEPARTMENT OF | [address] | [place] [address] | | | PATHOLOGY | [address] | | | + + + + + | [facility] DEPARTMENT OF | [address] | [place] [address] | | | PATHOLOGY | [address] [...] + + + + | PRODUCT | [id number] | | [facility] | | | UNIT [...] [facility] DEPARTMENT OF | [address] [facility] | [place] [address] | | | PATHOLOGY | [address] | | | + + + + + | [facility] DEPARTMENT OF | [address] [facility] | [place] [address] | | | PATHOLOGY | [address] [...] | [facility] | [address] | [place] [address] | | | PATHOLOGY | [address] | | | + + + + + | [facility] | [address] | [place] [address] | | | PATHOLOGY | [address] | | | + + + + + documented in this encounter Visit Diagnoses Not on filedocumented in this encounter"
--- OUTSIDE RECORDS SUMMARY | ~2020-04-04 | XMS | Encounter Summary ---
Demographics + + + | Address | [address] | | | [place] [address] | + + + | Home Phone [...] Providers + +------+ + | Care Carpenter Form Name | Role | Phone | + [...] | | | | | | [address] [place], [place] | | | | | | [address] | | | | | | [phone] | | | +--------+---------+ + + + [...] | + + +--------+ + + | TX COLLECTION VENOUS | Procedures | Routin | [...] + + + + | PRODUCT | [id number] | | [facility] | | | UNIT [...] DEPARTMENT OF | [address] | [place] [address] | | | PATHOLOGY | [address] | | | + + + + + | [facility] DEPARTMENT OF | [address] | [place] [address] | | | PATHOLOGY | [address] [...] Performed At | + + + | [id number] Estimated GFR > 60 mL/min/1.73 sq m if non- | [facility] | | Chinese [id number] Estimated GFR > 60 mL/min/1.73 sq m if | DEPARTMENT OF | | Chinese GFR is estimated using the MDRD equation [...] + + + | [facility] | [facility] | [place] [address] | | | PATHOLOGY | [address] | | | + + + + + | [facility] | [address] [place] [address] | [place] [address] | | | PATHOLOGY | [address] [...] [facility] DEPARTMENT OF | [address] [facility] | [place] [address] | | | PATHOLOGY | [address] | | | + + + + + | [facility] DEPARTMENT OF | [address] [facility] | [place] [address] | | | PATHOLOGY | [address] [...] DEPARTMENT OF | [address] | [place] [address] | | | PATHOLOGY | [address] | | | + + + + + | [facility] DEPARTMENT OF | [address] | [place] [address] | | | PATHOLOGY | [address] [...] [employer] results. | CARDIOLOGY | | | | + + + + + + + + | Performing | Address | City/State/Zipcode | Phone Number | | Organization | | | | + + + + + | [facility] DEPT OF | [address] | [place], [place] | | | CARDIOLOGY | [facility] | [address] | | + + + + + | [facility] OF | [address] | [place], [place] | | | CARDIOLOGY | [address] | [address] | | + + + + + documented in this encounter Visit Diagnoses + + | Diagnosis | + + | Other specified pre-operative examination - Primary | + + documented in this encounter
--- OUTSIDE RECORDS SUMMARY | ~2020-04-04 | XMS | Encounter Summary ---
Demographics + + + | Address | [address] | | | [place] [address] | + + + | Home Phone [...] Providers + +------+ + | Care Electric Repair Supervisor Name | Role | Phone [...] Procedures | Pankaj Bergman | [address] Ayala [facility] | | | | | CT INJ | [address] Ayala [facility], | | | | | SACROILIAC | [place], [place] | 10th Floor | | | | | JOINT | [address] | [place], [place] | | | | | W/NEEDLE | Phone: | [address] | | | | | PLCMT | [phone] | Phone: | | | | | | Fax: | [phone] | | | | | | [phone] | Fax: | | | | | | | [phone] | +--------+--------+ + + + + Encounter Details +--------+ + + + + | Date | Type | Department | Care Team | Description | +--------+ + + + + | 10/12/ | Hospital | Diagnostic Imaging | | | | 2009 | Encounter | Services at [facility] | | | | | | [address] | | | | | | Roxann Ayala [facility] | | | | | | [address] | | | | | | [place], [place] | | | | | | [address] | | | | | | [phone] | | | +--------+ + + + [...] | | | | | | the faculty support coordinator. | | | | | | Bus Or Truck Garage Mechanic imaging was | | | | | [...] | | | | | | Author: PPEE DIOR, | | | | | | M.HeriReviewer: MARIAJOSE HILL, | | | | | | M.DJuan Jose STATUS FINAL / | | | | | | Dr. MAIRAJOSE RIVERA | | | | | | [...]
--- OUTSIDE RECORDS SUMMARY | ~2020-04-04 | XMS | Encounter Summary ---
Demographics + + + | Address | [address] | | | [place] [address] | + + + | Home Phone [...] Team Providers + +------+ + | Care Internal Medicine Veterinary Technician Name | Role | Phone | [...] | | | | [address] | [facility] | | | | | Mailcode: [id number] | [place], [place] | | | | | Physician's Pavilion | [address] | | | | | [place], [place] | [phone] | | | | | [address] | | | | | | [phone] | | | +--------+ + + + [...]
--- OUTSIDE RECORDS SUMMARY | ~2020-04-04 | XMS | Encounter Summary ---
Demographics + + + | Address | [address] | | | [place] [address] | + + + | Home Phone [...] Providers + +------+ + | Care Business Services Assistant Name | Role | Phone | [...] of this encounter Progress Notes Interface, Electronic Bench Technician In - 11/23/2005 2:04 AM PST [id number] [facility] Date: 11/07/2005 Clinic: Orthopaedics Shelby Galdamez is a 46-year-old woman seen for evaluation of pain in the right hip and back. She provides a history that she was operated on in [address] Garcia at [facility] for osteoarthritis. She apparently had a [...] given a request to take home to [place] to see if she can get into [...] could formulate some plans. Her phone is #[phone]. Gino Baker M.D. KEE / SALEEM [id number] / [id number] / [id number] / [id number] cc: Quintin Acevedo [facility] [address] [place] [address] Electronically signed by Gino Baker 11-22-2005 02:58:59 PM documented i n this encounter Plan of Treatment Not on filedocumented as of this encounter Visit Diagnoses Not on filedocumented in this encounter"
--- OUTSIDE RECORDS SUMMARY | ~2020-04-04 | XMS | Encounter Summary ---
Demographics + + + | Address | [address] | | | [place] [address] | + + + | Home Phone [...] Team Providers + +------+ + | Care Planetarium Technician Name | Role | Phone | + +------+ + | Eric Krishna MD | PCP | | + +------+ + Encounter Details +--------+ + + + + | Date | Type | Department | Care Team | Description | +--------+ + + + + | 10/18/ | Hospital | [facility] | Conversion | Pain | | 2018 | Encounter | CONVERSION DEP 888 | Transaction, | | | | | ARNIE LYLES | Provider Unknown | | | | | [place] | [phone] | | | | | [address] | | | | | | [phone] | | | +--------+ + + + [...] [address] | | | | | | [address] | | | | | | | [...]
--- OUTSIDE RECORDS SUMMARY | ~2020-04-04 | XMS | Encounter Summary ---
Demographics + + + | Address | [address] | | | [place] [address] | + + + | Home Phone [...] Team Providers + +------+ + | Care Hearing Aid Consultant Name | Role | Phone | + +------+ + PCP | Unavailable | + +------+ + Encounter Details +--------+ + + + + | Date | Type | Department | Care Team | Description | +--------+ + + + + | 03/19/ | Results | Registration [address] | Sophy, Faculty | | | 2007 | Only | [address] | [phone] | | | | | Rd Mailcode: [id number] | | | | | | [place], [place] | | | | | | [address] | | | | | | [phone] | | | +--------+ + + + [...]
--- OUTSIDE RECORDS SUMMARY | ~2020-04-04 | XMS | Encounter Summary ---
Demographics + + + | Address | [address] | | | [place] [address] | + + + | Home Phone [...] Team Providers + +------+ + | Care Flower Arranger Name | Role | Phone | + [...] Pavilion | | | | | | [place], [place] | | | | | | [address] | | | | | | [phone] | | | +--------+ + + + [...] + + + + + | [facility] | [address] | [place] [address] | | | LABORATORY | | | [...] | + + + + + | [facility] DEPARTMENT OF | [address] [facility] | [place] [address] | | | PATHOLOGY | [address] | | | + + + + + | [facility] DEPARTMENT OF | [address] [facility] [address] | [place] [address] | | | PATHOLOGY | [address] [...] | + + + + + | [facility] | [address] | [place] [address] | | | PATHOLOGY | [address] | | | + + + + + | [facility] | [facility] [address] | [place] [address] | | | PATHOLOGY | [address] [...] DEPARTMENT OF | [address] | [place] [address] | | | PATHOLOGY | [address] | | | + + + + + | [facility] | [address] | [place] [address] | | | PATHOLOGY | [address] [...] | | | | | communicated to Maryebth, | | | | | | Primer Inserting Machine Operator, | | | | | | [...] | + + + + + | [facility] | [address] | [place] [address] | | | LABORATORY | | | [...] | + + + + + | [facility] DEPARTMENT OF | [address] | [place] [address] | | | PATHOLOGY | [address] | | | + + + + + | [facility] DEPARTMENT OF | [address] | [place] [address] | | | PATHOLOGY | [address] [...] | + + + + + | [facility] DEPARTMENT OF | [address] [facility] | [place] [address] | | | PATHOLOGY | [address] | | | + + + + + | [facility] DEPARTMENT OF | [address] [facility] [address] | [place] [address] | | | PATHOLOGY | [address] [...] | + + + + + | [facility] DEPARTMENT OF | [address] [facility] | [place] [address] | | | PATHOLOGY | [address] | | | + + + + + | [facility] DEPARTMENT OF | [address] [facility] | [place] [address] | | | PATHOLOGY | [address] [...] + + + + + | [facility] | [address] | [place] [address] | | | LABORATORY | | | [...] [facility] | [address] | [place] [address] | | | PATHOLOGY | [address] | | | + + + + + | [facility] | [facility] [address] | [place] [address] | | | PATHOLOGY | [address] [...] | + + + + + | [facility] DEPARTMENT OF | [address] | [place] [address] | | | PATHOLOGY | [address] | | | + + + + + | [facility] DEPARTMENT OF | [address] | [place] [address] | | | PATHOLOGY | [address] [...] + | [facility] | [address] [facility] | [place] [address] | | | PATHOLOGY | [address] | | | + + + + + | [facility] DEPARTMENT OF | [facility] | [place] [address] | | | PATHOLOGY | [address] [...] + + + | [facility] | [address] | [place] [address] | | | LABORATORY | | | [...] + | [facility] | [address] [facility] | [place] [address] | | | PATHOLOGY | [address] | | | + + + + + | [facility] DEPARTMENT OF | [address] [facility] | [place] [address] | | | PATHOLOGY | [address] [...] + + | [facility] DEPARTMENT OF | [address] | [place] [address] | | | PATHOLOGY | [address] | | | + + + + + | [facility] | [address] | [place] [address] | | | PATHOLOGY | [address] [...] PRIMARY | | | | | | NURSING INFORMATICS CLINICAL ANALYST: Joao Wilde | | | | | [...] | | | | | aspirated. A12 [place] | | | | | | multi [...] | | + +---------+ + + | [facility] DEPARTMENT OF | | | [...] | | + +---------+ + + | [facility] DEPARTMENT OF | | | [...] + + + | [facility] | [address] | [place] [address] | | | LABORATORY | | | [...] | + + + + + | [facility] DEPARTMENT OF | [address] | [place] [address] | | | PATHOLOGY | [address] | | | + + + + + | [facility] DEPARTMENT OF | [address] | [place] [address] | | | PATHOLOGY | [address] [...] (L) | 7.4 - 10.4 fL | [facility] | | | | | | [...] | + + + + + | [facility] DEPARTMENT OF | [address] [facility] | [place] [address] | | | PATHOLOGY | [address] | | | + + + + + | [facility] DEPARTMENT OF | [address] [facility] | [place] [address] | | | PATHOLOGY | [address] [...] | + + + + + | [facility] DEPARTMENT OF | [address] | [place] [address] | | | PATHOLOGY | [address] | | | + + + + + | [facility] DEPARTMENT OF | [address] | [place] [address] | | | PATHOLOGY | [address] [...] + + | [facility] | [facility] | [place] [address] | | | PATHOLOGY | [address] | | | + + + + + | [facility] DEPARTMENT OF | [address] [facility] | [place] [address] | | | PATHOLOGY | [address] [...] | | + +---------+ + + | [facility] DEPARTMENT OF | | | [...] + | [facility] | [address] [facility] | [place] [address] | | | PATHOLOGY | [address] | | | + + + + + | [facility] | [address] [facility] | [place] [address] | | | PATHOLOGY | [address] [...] DEPARTMENT OF | [address] | [place] [address] | | | PATHOLOGY | [address] | | | + + + + + | [facility] DEPARTMENT OF | [address] | [place] [address] | | | PATHOLOGY | [address] [...] | + + + + + | [facility] | [address] | [place] [address] | | | PATHOLOGY | [address] | | | + + + + + | [facility] | [address] | [place] [address] | | | PATHOLOGY | [address] [...] + + + | [facility] | [address] | [place] [address] | | | LABORATORY | | | | + + + + + documented in this encounter Visit Diagnoses Not on filedocumented in this encounter"
--- OUTSIDE RECORDS SUMMARY | ~2020-04-04 | XMS | Encounter Summary ---
Demographics + + + | Address | [address] | | | [place] [address] | + + + | Home Phone [...] Providers + +------+ + | Care Client Consultant Name | Role | Phone | + +------+ + PCP | Unavailable | + +------+ + Encounter Details +--------+ + + + + | Date | Type | Department | Care Team | Description | +--------+ + + + + | 09/14/ | Results | | Other, Faculty | | | 2002 | Only | | [phone] | | +--------+ + + + + [...] + | Ordered by JEFERSON CRONIN, . [id number] Patient unavailable, | | | specimen not obtained | | + + + + + + + + | Performing | Address | City/State/Zipcode | Phone Number | | Organization | | | | + + + + + | [facility] | [address] | [place] [address] | | | LABORATORY | | | [...] + | Ordered by JEFERSON CRONIN JR. [id number] Patient unavailable, | [facility] | | specimen not obtained | DEPARTMENT OF | | | PATHOLOGY | + + + + + + + + | Performing | Address | City/State/Zipcode | Phone Number | | Organization | | | | + + + + + | [facility] DEPARTMENT | [address] [facility] | [place] [address] | | | PATHOLOGY | [address] | | | + + + + + | [facility] | [address] [facility] | [place] [address] | | | PATHOLOGY | [address] [...] + | Ordered by JEFERSON CRONIN JR. [id number] Staff or dialysis draw | [facility] | | required. | DEPARTMENT OF | | | PATHOLOGY | + + + + + + + + | Performing | Address | City/State/Zipcode | Phone Number | | Organization | | | | + + + + + | [facility] DEPARTMENT OF | [address] | [place] [address] | | | PATHOLOGY | [address] | | | + + + + + | [facility] DEPARTMENT OF | [address] | [place] [address] | | | PATHOLOGY | [address] [...] | + + + + + | [facility] DEPARTMENT OF | [address] | [place] [address] | | | PATHOLOGY | [address] | | | + + + + + | [facility] DEPARTMENT OF | [address] | [place] [address] | | | PATHOLOGY | [address] [...] | [facility] | [address] | [place] [address] | | | PATHOLOGY | [address] | | | + + + + + | [facility] DEPARTMENT OF | [address] | [place] [address] | | | PATHOLOGY | [address] | | | + + + + + documented in this encounter Visit Diagnoses Not on filedocumented in this encounter"
--- OUTSIDE RECORDS SUMMARY | ~2020-04-04 | XMS | Encounter Summary ---
Demographics + + + | Address | [address] | | | [place] [address] | + + + | Home Phone | | + + + | Preferred Language | Unknown | + + + | Marital Status | | + + + | Buddhist Affiliation | 1076 | + + + | Race | Unknown | + + + | Ethnic Group | Unknown | + + + Author + + + | Author | [facility] | | | and [place] | + + + | Organization | [facility] | | | and [...] Providers + +------+ + | Care Manager Support Name | Role | Phone | + [...] + + | 11/25/ | Anesthesia | [facility] | Helio Barkley | | | 2017 | Event | [facility] | MD Tien [address] | | | | | [address] | [address] | | | | | [place] | [place] [address] | | | | | [address] | | | | | | [phone] | | | +--------+ + + + + Anesthesia Record + + + + + | Procedure Name | Responsible | Anesthesia Start | Anesthesia Stop Time | | | Anesthesiologist | Time | | + + + + + | RIGHT URETEROSCOPY | Heloi Irvin | 11/25/16 09 | 11/25/16 1105 [...] Per surgeon request - received abx at [facility] | | | 9 | Antibiotic [...] + + | | 0 | an nadia now | | | | 9 | [...] +----+---+ + + | | 0 | [place] | | | | 9 | 43-degrees | | | | 5 | | | | | 0 | | | +----+---+ + + | | 0 | Quick Note | Purulent drainage per surgeon | | | 9 | | | | | 5 | | | | | 5 | | | +----+---+ + + | | 1 | [place] off | | | | 0 | [...] EVALUATION Shelby Galdamez 56 y.o. female 1960 [id number] Procedure(s) RIGHT URETEROSCOPY W/ LASER LITHOTRIPSY RIGHT [...] signed by Helio Barkley MD 11/25/2016 11:11 [facility] nesthesia Proc saurabh Mccarthy - Helio Barkley [...] EVALUATION Shelby Galdamez 56 y.o. female 1960 [id number] Procedure(s): RIGHT URETEROSCOPY W/ LASER LITHOTRIPSY (Right [...] [place] | | | | | | [id number] | | | | | | | [...]
--- OUTSIDE RECORDS SUMMARY | ~2020-04-04 | XMS | Encounter Summary ---
Demographics + + + | Address | [address] | | | [place] [address] | + + + | Home Phone [...] Team Providers + +------+ + | Care House Player Name | Role | Phone | + [...]
--- OUTSIDE RECORDS SUMMARY | ~2020-04-04 | XMS | Encounter Summary ---
Demographics + + + | Address | [address] | | | [place] [address] | + + + | Home Phone [...] Providers + +------+ + | Care Film Crew Member Name | Role | Phone | [...] | | | | JOSE | [address] [facility] | | | | | | MEDICAL | [facility] | | | | | | CLINIC [address] | [address] [place], | | | | | | [address] | [place] | | | | | | [place], [place] | [address] | | | | | | [address] | Phone: | | | | | | | [phone] | | | | | | | Fax: | | | | | | | [phone] | +--------+--------+ + + + + Encounter [...] | | | | Mailcode: [id number] | [place], [place] | Calcification; Back | | | | [facility] | [address] | Pain; Hip Pain | | | | [place], [place] | [phone] | | | | | [address] | | | | | | [phone] | | | +--------+---------+ + + + [...] and plan of care. KALYAN COLBY MD [facility] [address] [facility] [address] aRaul kasper - 8 12:04 PM PDT [...] w ound vac placement were undertaken with buttermilk drier operator antibiotics until the infection cleared. She [...]
--- OUTSIDE RECORDS SUMMARY | ~2020-04-04 | XMS | Encounter Summary ---
Demographics + + + | Address | [address] | | | [place] [address] | + + + | Home Phone [...] Team Providers + +------+ + | Care Drum Printer Name | Role | Phone | [...] as of this encounter Progress Notes Interface, Machine Inspector In - 11/23/2005 2:04 AM PST [id number] [facility] Date: 11/07/2005 Clinic: Orthopaedics Shelby Galdamez is a 46-year-old woman seen for evaluation of pain in the right hip and back. She provides a history that she was operated on in [address] Garcia at [facility] for osteoarthritis. She apparently had a [...] given a request to take home to [place] to see if she can get into [...] could formulate some plans. Her phone is #[phone]. Gino Baker M.D. KEE / SALEEM [id number] / [id number] / [id number] / [id number] cc: Quintin Acevedo [facility] [address] [place] [address] Electronically signed by Gino Baker 11-22-2005 02:58:59 PM documented i n this encounter Plan of Treatment Not on filedocumented as of this encounter Visit Diagnoses Not on filedocumented in this encounter"
--- OUTSIDE RECORDS SUMMARY | ~2020-04-04 | XMS | Encounter Summary ---
Demographics + + + | Address | [address] | | | [place] [address] | + + + | Home Phone [...] Team Providers + +------+ + | Care Psychiatric Rn Name | Role | Phone | [...] [place] | | | | | | [place], [place] | | | | | | [address] | | | | | | [phone] | | | +--------+---------+ + + + [...] fairly well controlled at this point with Montalba. She has been wbat and is overall [...]
--- OUTSIDE RECORDS SUMMARY | ~2020-04-04 | XMS | Encounter Summary ---
Demographics + + + | Address | [address] | | | [place] [address] | + + + | Home Phone [...] Providers + +------+ + | Care Radio Station Manager Name | Role | Phone | [...] as of this encounter Progress Notes Interface, Industrial Methods Consultant In - 06/11/2006 3:03 AM PDT [place] [facility] and [place] [address] [place], [place] [address] FAX Department of Orthopaedics, [facility] [employer] [id number] November 27, 2001 Kalyan Wu M.D. [facility]-Or[facility] PV 430 RE: SHELBY GALDAMEZ MR [...] the low back several years ago in [place], [place] which she described as showing deteriorating vertebrae at "T11-T12." She has not had any physical therapy for back. She does work out at a gym under the direction of physical therapy in [place]. She would like to start some exercises [...] me. Sincerely yours, Vince Krishna M.D. [facility] / [id number] / [id number] / [id number] / [id number] cc: Lloyd Garcia M.D. Orthopedics PV 430 docume nted in this encounter Plan of Treatment Not on filedocumented as of this encounter Visit Diagnoses Not on filedocumented in this encounter
--- OUTSIDE RECORDS SUMMARY | ~2020-04-04 | XMS | Encounter Summary ---
Demographics + + + | Address | [address] | | | [place] [address] | + + + | Home Phone | | + + + | Preferred Language | Unknown | + + + | Marital Status | | + + + | Jew Affiliation | 1076 | + + + | Race | Unknown | + + + | Ethnic Group | Unknown | + + + Author + + + | Author | [facility] | | | and [place] | + + + | Organization | [facility] | | [...] Providers + +------+ + | Care Rubber Trimmer Name | Role | Phone | [...] + + | 09/24/ | Refill | [facility] | Xiang Sepulveda, | Medication Refill | | 2019 | | [facility] | DO [address] | | | | | D[address] | [place], [place] | | | | | [address] | [address] | | | | | [place], [place] | | | | | | [address] | | | | | | [phone] | | | +--------+--------+ + + + [...] Miscellaneous Notes Telephone Encounter - Antonella Sprague Memorial Marker Designer - 09/24/2019 10:23 AM PSTKevyn e given to Dr. Sepulveda. Electronically signed by Antonella Sprague Memorial Marker Designer at 10:23 AM PSTdocumented in this encounter [...] [place] | | | | | | [id number] | | | | | | | [...]
--- OUTSIDE RECORDS SUMMARY | ~2020-04-04 | XMS | Encounter Summary ---
Demographics + + + | Address | [address] | | | [place] [address] | + + + | Home Phone [...] Team Providers + +------+ + | Care Pin Cleaner Name | Role | Phone | [...] as of this encounter Progress Notes Interface, Faculty Research Physician In - 04/28/2005 6:17 PM PDTClinic Date: [...] see us. She instead went to the [facility] emergency department, where she was seen and [...] a chance to get back home to [place]. We will call her tomorrow and reiterate how important it is that we take care of this fluid collection in her hip and try to get her better. Dori Wong. Lloyd Garcia M.D. Attending Physician /jamil P [id number] signed by Interface, Faculty Research Physician In at 04/28/2005 6:17 PM PDTdoc umented in this encounter Plan of Treatment Not on filedocumented as of this encounter Visit Diagnoses Not on filedocumented in this encounter"
--- OUTSIDE RECORDS SUMMARY | ~2020-04-04 | XMS | Encounter Summary ---
Demographics + + + | Address | [address] | | | [place] [address] | + + + | Home Phone [...] Team Providers + +------+ + | Care Java Systems Analyst Name | Role | Phone | [...] PPV | | | | | | [address] | | | | | | Loop [facility] | | | | | | [place], [address] [place] [address] | | | | | | [place], [place] | | | | | | [address] | | | | | | [phone] | | | +--------+ + + + [...] | + + + +---------+--------+ + | Hobson-3 Fatty | Take by mouth. | | [...]
--- OUTSIDE RECORDS SUMMARY | ~2020-04-04 | XMS | Encounter Summary ---
Demographics + + + | Address | [address] | | | [place] [address] | + + + | Home Phone [...] Team Providers + +------+ + | Care Ham Marker Name | Role | Phone | [...] Pavilion | | | | | | [place], [place] | | | | | | [address] | | | | | | [phone] | | | +--------+ + + + [...]
--- OUTSIDE RECORDS SUMMARY | ~2020-04-04 | XMS | Encounter Summary ---
Demographics + + + | Address | [address] | | | [place] [address] | + + + | Home Phone | | + + + | Preferred Language | Unknown | + + + | Marital Status | | + + + | Episcopal Affiliation | 1076 | + + + | Race | Unknown | + + + | Ethnic Group | Unknown | + + + Author + + + | Author | [facility] | | | and [place] | + + + | Organization | [facility] | | | [...] Team Providers + +------+ + | Care Motors Assembler Name | Role | Phone | [...] + | 04/24/ | Office | [facility] | Ladarius Martínez PA | MAMADOU on CPAP (Primary | | 2012 | Visit | SLEEP DISORDER [address] | [address] | Dx) | | | | [address] [place] | [place], [place] | | | | | [place] [address] | [address] | | | | | [phone] | | | +--------+---------+ + + + [...] Ravi obtained from: [facility] [place] pressure is: 9 cm ResMed S9: Pressure: [...] to go to [facility] [place] to get a fitting for her mask that will allow it to connect to her hose properly or make an adjustmen t to the mask that keep it connected. I will follow up again in 1 month, sooner prn. Fifteen minutes were spent [id number], wi th the majority of time spent [...] [place] | | | | | | [address] | | | | | | | | +--------+---------+ + + + documented as of this encounter Visit Diagnoses + + | Diagnosis | + + | MAMADOU on CPAP - Primary Obstructive sleep apnea (adult) (pediatric) | + + documented in this encounter"
--- OUTSIDE RECORDS SUMMARY | ~2020-04-04 | XMS | Encounter Summary ---
Demographics + + + | Address | [address] | | | [place] [address] | + + + | Home Phone [...] Providers + +------+ + | Care Tool Chaser Name | Role | Phone | + [...] PPV | | | | | | [address] | | | | | | Loop [facility] | | | | | | [place], [facility] Floor | | | | | | [place], [place] | | | | | | [address] | | | | | | [phone] | | | +--------+ + + + [...] + + + +---------+ + + | Thrall-3 Fatty | Take by mouth. | | [...] +---------+ + + | [facility] DEPARTMENT OF | | | [...]
--- OUTSIDE RECORDS SUMMARY | ~2020-04-04 | XMS | Encounter Summary ---
Demographics + + + | Address | [address] | | | [place] [address] | + + + | Home Phone [...] Team Providers + +------+ + | Care Trucking Supervisor Name | Role | Phone | [...] | | [address] | [address] [place], | | | | | Mailcode: PV430 | [place] [address] | | | | | [facility] | | | | | | [place] | | | | | | [address] | | | | | | [phone] | | | +--------+ + + + [...]
--- OUTSIDE RECORDS SUMMARY | ~2020-04-04 | XMS | Encounter Summary ---
Demographics + + + | Address | [address] | | | [place] [address] | + + + | Home Phone | | + + + | Preferred Language | Unknown | + + + | Marital Status | | + + + | Rastafari Affiliation | 1076 | + + + | Race | Unknown | + + + | Ethnic Group | Unknown | + + + Author + + + | Author | [facility] | | | and [place] | + + + | Organization | [facility] | | [...] Team Providers + +------+ + | Care Signal Wirer Name | Role | Phone | + +------+ + | Jaimie Monreal MD | PCP | | + +------+ + Encounter Details +--------+ + + + + | Date | Type | Department | Care Team | Description | +--------+ + + + + | 07/08/ | [facility] | [facility] | Jasper Medrano, | Left hip pain | | 2019 | Encounter | [address] | | | | | [address] | [place] | | | | | [place], [place] | [address] | | | | | [address] | | | | | | [phone] | | | +--------+ + + + [...] [place] | | | | | | [address] | | | | | | | [...] | | subsidence. However this is a jptgo-id-uhqts prosthesis. Did not | | | seem to be any significant ostial lysis around either of the | | | components. There is evidence in the femur of previously removed | | | hardware. 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 The left hip shows severe lhfz-yq-dcpa | | | arthritis without any evidence [...]
--- OUTSIDE RECORDS SUMMARY | ~2020-04-04 | XMS | Encounter Summary ---
Demographics + + + | Address | [address] | | | [place] [address] | + + + | Home Phone [...] Team Providers + +------+ + | Care Lathe Puller Name | Role | Phone | + +------+ + | Travis Mcginnis MD | PCP | | + +------+ + Encounter Details +--------+ + + + + | Date | Type | Department | Care Team | Description | +--------+ + + + + | 10/14/ | Results | LAB REFERRED TESTS | Other, Faculty | | | 2010 | Only | [address] [facility] | [phone] | | | | | [address] | | | | | | [place] | | | | | | [address] | | | +--------+ + + + [...] + + | [facility] | [address] | [place], [place] | | | CARDIOLOGY | [address] | [address] | | + + + + + documented in this encounter Visit Diagnoses Not on filedocumented in this encounter"
--- OUTSIDE RECORDS SUMMARY | ~2020-04-04 | XMS | Encounter Summary ---
Demographics + + + | Address | [address] | | | [place] [address] | + + + | Home Phone [...] Team Providers + +------+ + | Care White Sidewall Tire Buffer Name | Role | Phone | + [...] Pavilion | | | | | | [place], [place] | | | | | | [address] | | | | | | [phone] | | | +--------+ + + + [...] + | [facility] | [address] [address] | [place] [address] | | | PATHOLOGY | [address] | | | + + + + + | [facility] | [address] | [place] [address] | | | PATHOLOGY | [address] [...] | + + + + + | [facility] DEPARTMENT OF | [address] | [place] [address] | | | PATHOLOGY | [address] | | | + + + + + | [facility] DEPARTMENT | [address] | [place] [address] | | | PATHOLOGY | [address] [...] | + + + + + | [facility] OF | [address] | [place] [address] | | | PATHOLOGY | [address] | | | + + + + + | [facility] OF | [facility] [address] | [place] [address] | | | PATHOLOGY | [address] [...] | + + + + + | [facility] DEPARTMENT OF | [address] | [place] [address] | | | PATHOLOGY | [address] | | | + + + + + | [facility] DEPARTMENT OF | [address] | [place] [address] | | | PATHOLOGY | [address] [...]
--- OUTSIDE RECORDS SUMMARY | ~2020-04-04 | XMS | Encounter Summary ---
Demographics + + + | Address | [address] | | | [place] [address] | + + + | Home Phone [...] Providers + +------+ + | Care Automobile Club Membership Sales Agent Name | Role | Phone | [...] PPV | | | | | | [address] | | | | | | Loop Physician's | | | | | | [place], [address]th Floor | | | | | | [place], [place] | | | | | | [address] | | | | | | [phone] | | | +--------+ + + + [...]
--- OUTSIDE RECORDS SUMMARY | ~2020-04-04 | XMS | Encounter Summary ---
Demographics + + + | Address | [address] | | | [place] [address] | + + + | Home Phone [...] Providers + +------+ + | Care Local Delivery Driver Name | Role | Phone | + +------+ + PCP | Unavailable | + +------+ + Encounter Details +--------+ + + + + | Date | Type | Department | Care Team | Description | +--------+ + + + + | 06/24/ | Results | | Other, Faculty | | | 2000 | Only | | [phone] | | +--------+ + + + + [...]
--- OUTSIDE RECORDS SUMMARY | ~2020-04-04 | XMS | Encounter Summary ---
Demographics + + + | Address | [address] | | | [place] [address] | + + + | Home Phone [...] Team Providers + +------+ + | Care Gun Stock Checker Name | Role | Phone | [...] of this encounter Progress Notes Interface, Senior Mechanical Design Engineer In - 08/22/2006 5:13 AM PSTCLINIC DATE: [...] Valium. PHYSICAL EXAMINATION: She ambulates with a unvfawfe-mf-ziqidk leg coxalgic gait leaning over the right [...] that they are appropriate. Lloyd Garcia MD Dining Manager Department of Orthopaedics / [id number] / [id number] / [id number] / [id number] C: 01/19/2000 jerman cc: Helio Noland MD [address] [place], [place] [address] [place] [address] [id number] signed by Interface, Senior Mechanical Design Engineer In at 08/22/2006 5:13 AM PSTdocumented in this encounter Plan of Treatment Not on filedocumented as of this encounter Visit Diagnoses Not on filedocumented in this encounter"
--- OUTSIDE RECORDS SUMMARY | ~2020-04-04 | XMS | Encounter Summary ---
Demographics + + + | Address | [address] | | | [place] [address] | + + + | Home Phone [...] Providers + +------+ + | Care Video Operator Name | Role | Phone | [...] | | [address] | [place], | | | | | Mailcode: PV430 | [place] [address] | | | | | [facility] | | | | | | [place] | | | | | | [address] | | | | | | [phone] | | | +--------+ + + + [...] + + | Performing | Address | City/State/[facility] | Phone Number | | [...] | [facility] DEPARTMENT | | | | | RADIOLOGY | | | | + +---------+ + + documented in this encounter Visit Diagnoses Not on filedocumented in this encounter"
--- OUTSIDE RECORDS SUMMARY | ~2020-04-04 | XMS | Encounter Summary ---
Demographics + + + | Address | [address] | | | [place] [address] | + + + | Home Phone [...] Providers + +------+ + | Care Chief Wheelage Clerk Name | Role | Phone | [...] of this encounter Progress Notes Interface, Manufacturing Storeperson In - 05/17/2006 3:10 AM PDTCLINIC DATE: [...] arthroplasty at that point. Lloyd Garcia M.D. Advocacy Director, Orthopedics and Rehabilitation / [id number] / [id number] / [id number] / [id number] cc: Ninfa Guillen M.D. [address] [place] [id number] signed by Interface, Manufacturing Storeperson In at 05/17/2006 3:1 0 AM PDTInterface, Manufacturing Storeperson In - 05/17/2006 3:10 AM PDTCLINIC DATE: [...] MD Lloyd Causey M.D. SAMANTHA / SALEEM [id number] / [id number] / [id number] / Tdocumented in this encounter Plan of Treatment Not on filedocumented as of this encounter Visit Diagnoses Not on filedocumented in this encounter"
--- OUTSIDE RECORDS SUMMARY | ~2020-04-04 | XMS | Encounter Summary ---
Demographics + + + | Address | [address] | | | [place] [address] | + + + | Home Phone [...] Team Providers + +------+ + | Care Procedure Rn Name | Role | Phone | [...] TAR[address] L[address] | | | | | [address] | [address] | | | | | Loop Physician's | [place], [place] | | | | | [place], 3rd floor | [address] | | | | | [place], [place] | [phone] | | | | | [address] | | | | | | [phone] | | | +--------+ + + + [...] [address] | [place] | [phone] | | [facility] | | [address] | | + + + + + | [place] | [address] | [place] | | | [facility] | | [address] | | + + + + + [...] [address] | [place] | [phone] | | [facility] | | [address] | | + + + + + | [facility] | [address] | [place] | | | [facility] | | [address] | | + + + + + documented in this encounter Visit Diagnoses Not on filedocumented in this encounter"
--- OUTSIDE RECORDS SUMMARY | ~2020-04-04 | XMS | Encounter Summary ---
Demographics + + + | Address | [address] | | | [place] [address] | + + + | Home Phone [...] Providers + +------+ + | Care Wine And Spirits Clerk Name | Role | Phone | [...] [facility] | | | | | | [address] | | | | | | Loop Physician's | | | | | | [place], [facility] Floor | | | | | | [place], [place] | | | | | | [address] | | | | | | [phone] | | | +--------+ + + + [...] + + +---------+ + + | [place]-3 Fatty | Take by mouth. | | [...] | + +---------+ + + | [facility] DEPARTMENT OF | | | | | RADIOLOGY | | | | + +---------+ + + documented in this encounter Visit Diagnoses + + | Diagnosis | + + | Hip pain, right Pain in joint, pelvic region and thigh | + + documented in this encounter"
--- OUTSIDE RECORDS SUMMARY | ~2020-04-04 | XMS | Encounter Summary ---
Demographics + + + | Address | [address] | | | [place] [address] | + + + | Home Phone [...] Team Providers + +------+ + | Care Lpc Name | Role | Phone | + [...] [facility] | | | | | | [address] | | | | | | Loop Physician's | | | | | | [place], [facility] Floor | | | | | | [place], [place] | | | | | | [address] | | | | | | [phone] | | | +--------+ + + + [...] + + + +---------+ + + | [place]-3 Fatty | Take by mouth. | | [...]
--- OUTSIDE RECORDS SUMMARY | ~2020-04-04 | XMS | Encounter Summary ---
Demographics + + + | Address | [address] | | | [place] [address] | + + + | Home Phone [...] Providers + +------+ + | Care Project Scheduler Name | Role | Phone | [...] Pavilion | | | | | | [place], [place] | | | | | | [address] | | | | | | [phone] | | | +--------+ + + + [...]
--- OUTSIDE RECORDS SUMMARY | ~2020-04-04 | XMS | Encounter Summary ---
Demographics + + + | Address | [address] | | | [place] [address] | + + + | Home Phone [...] Team Providers + +------+ + | Care Active Directory Specialist Name | Role | Phone | + +------+ + PCP | Unavailable | + +------+ + Encounter Details +--------+ + + + + | Date | Type | Department | Care Team | Description | +--------+ + + + + | 09/14/ | Hospital | [facility] | Unknown, | | | 1991 | Encounter | MED CTR XRAY [address] | MD Bk . | | | | | [address] | | | | | | [place] [address] | (Fax) | | | | | [phone] | | | +--------+ + + + [...] [place] | | | | | | [address] | | | | | | | | +--------+---------+ + + + documented as of this encounter Visit Diagnoses Not on filedocumented in this encounter"
--- OUTSIDE RECORDS SUMMARY | ~2020-04-04 | XMS | Encounter Summary ---
Demographics + + + | Address | [address] | | | [place] [address] | + + + | Home Phone [...] Providers + +------+ + | Care Consulting Psychologist Name | Role | Phone | [...] | | | at Pankaj [facility] | [facility] | | | | | [address] | [place] [address] | | | | | [address] | | | | | | Luis Alfredo, [address] [place] [address] | | | | | | [place], [place] | | | | | | [address] | | | | | | [phone] | | | +--------+ + + + [...] view image for the detailed interpretation from [facility] results. | CARDIOLOGY | | | | + + + + + + + + | Performing | Address | City/State/Zipcode | Phone Number | | Organization | | | | + + + + + | [facility] DEPT OF | [address] | [place], [place] | | | CARDIOLOGY | [address] | [address] | | + + + + + | [facility] | [address] | [place], [place] | | | CARDIOLOGY | [address] | [address] | | + + + + + documented in this encounter Visit Diagnoses + + | Diagnosis | + + | Other specified pre-operative examination | + + documented in this encounter
--- OUTSIDE RECORDS SUMMARY | ~2020-04-04 | XMS | Encounter Summary ---
Demographics + + + | Address | [address] | | | [place] [address] | + + + | Home Phone [...] Team Providers + +------+ + | Care Cognos Name | Role | Phone | + [...] | | [address] | [place], | | | | | Mailcode: PV430 | [place] [address] | | | | | [facility] | | | | | | [place], [place] | | | | | | [address] | | | | | | [phone] | | | +--------+ + + + [...]
--- OUTSIDE RECORDS SUMMARY | ~2020-04-04 | XMS | Encounter Summary ---
Demographics + + + | Address | [address] | | | [place] [address] | + + + | Home Phone [...] Team Providers + +------+ + | Care Ceramics Test Engineer Name | Role | Phone [...] + + + + | 10/24/ | Ham Doctor | Infectious | Carolina Putnam | | | 2010 | | Diseases at [facility] | K, PAXavierC [address] | | | | | [address] | [address] | | | | | Loop Physician's | [place], [place] | | | | | [place], 3rd floor | [address] | | | | | [place], [place] | [phone] | | | | | [address] | | | | | | [phone] | | | +--------+ + + + [...]
--- OUTSIDE RECORDS SUMMARY | ~2020-04-04 | XMS | Encounter Summary ---
Demographics + + + | Address | [address] | | | [place] [address] | + + + | Home Phone [...] Providers + +------+ + | Care Associate Publisher Name | Role | Phone | + [...] | | | Mailcode: PV430 | [place], [place] | | | | | [facility] | [address] | | | | | [place], [place] | [phone] | | | | | [address] | | | | | | [phone] | | | +--------+ + + + [...]
--- OUTSIDE RECORDS SUMMARY | ~2020-04-04 | XMS | Encounter Summary ---
Demographics + + + | Address | [address] | | | [place] [address] | + + + | Home Phone [...] Team Providers + +------+ + | Care Ladle Repairman Name | Role | Phone | + +------+ + | Marta Jenkins DIRECTOR OF QUANTITATIVE RESEARCH | PCP | | + +------+ + [...] | Jamie Mailcode: [address] [place], | | | | | [place], [place] | [place] [address] | | | | | [address] | | | | | | [phone] | | | +--------+ + + + [...]
--- OUTSIDE RECORDS SUMMARY | ~2020-04-04 | XMS | Encounter Summary ---
Demographics + + + | Address | [address] | | | [place] [address] | + + + | Home Phone [...] Team Providers + +------+ + | Care Daycare Manager Name | Role | Phone | [...] as of this encounter Progress Notes Interface, Drafter Engineering In - 04/28/2005 10:57 PM PDTClinic Date: [...] longer any fluid pocket. Lloyd Garcia M.D. Anaesthesiologist, Orthopedics and Rehabilitation / [id number] / [id number] / [id number] / [id number] cc: Everett Ibrahim MD [address] [place], [place] [id number] signed by Interface, Drafter Engineering In at 04/28/2005 10:57 PM PDTdocumented in this encounter Plan of Treatment Not on filedocumented as of this encounter Visit Diagnoses Not on filedocumented in this encounter"
--- OUTSIDE RECORDS SUMMARY | ~2020-04-04 | XMS | Encounter Summary ---
Demographics + + + | Address | [address] | | | [place] [address] | + + + | Home Phone [...] Team Providers + +------+ + | Care Lawn Specialist Name | Role | Phone | [...]
--- OUTSIDE RECORDS SUMMARY | ~2020-04-04 | XMS | Encounter Summary ---
Demographics + + + | Address | [address] | | | [place] [address] | + + + | Home Phone [...] Team Providers + +------+ + | Care Software Engineer Advisor Name | Role | Phone | [...] | | | | [facility] | [address] | | | | | [facility] [place] | [phone] | | | | | [address] | | | | | | [phone] | | | +--------+ + + + [...]
--- OUTSIDE RECORDS SUMMARY | ~2020-04-04 | XMS | Encounter Summary ---
Demographics + + + | Address | [address] | | | [place] [address] | + + + | Home Phone [...] + +------+ + | Care Front Desk Assistant Name | Role | Phone [...] as of this encounter Progress Notes Interface, Journeyman Electrician Pv Installer In - 06/19/2006 1:01 AM PDTCLINIC DATE: [...] ALLERGIES: None. SOCIAL HISTORY: She lives in [facility], and she is currently not working. [...] the appointment. Her current phone number is [phone]. At this point, we will not schedule her for a followup until we have these other appointments, and then we will have her followup with . Again, we will forward our recommendations to him. Pricilla Metcalf M.D. Kalyan Wu M.D. [facility] / [id number] / [id number] / [id number] / [id number] cc: Lloyd Garcia M.D. PV-430 docume nted in this encounter Plan of Treatment Not on filedocumented as of this encounter Visit Diagnoses Not on filedocumented in this encounter"
--- OUTSIDE RECORDS SUMMARY | ~2020-04-04 | XMS | Encounter Summary ---
Demographics + + + | Address | [address] | | | [place] [address] | + + + | Home Phone [...] Team Providers + +------+ + | Care Discharge Specialist Name | Role | Phone | [...] as of this encounter Progress Notes Interface, Vessel Scrapper Helper In - 08/16/2006 1:10 AM PSTCLINIC DATE: [...] be requiring surgical intervention. Lloyd Garcia M.D. Temp Recruiter of Orthopedics and Rehabilitation / [id number] / [id number] / [id number] / cc: Helio Noland M.D. Juan JoseJuan Jose [place], [place] [id number] signed by Interface, Vessel Scrapper Helper In at 08/16/2006 1: 10 AM PSTdocumented in this encounter Plan of Treatment Not on filedocumented as of this encounter Visit Diagnoses Not on filedocumented in this encounter"
--- OUTSIDE RECORDS SUMMARY | ~2020-04-04 | XMS | Encounter Summary ---
Demographics + + + | Address | [address] | | | [place] [address] | + + + | Home Phone [...] Team Providers + +------+ + | Care Transformation Lead Name | Role | Phone | [...] as of this encounter Progress Notes Interface, Folder Machine Adjuster In - 04/28/2005 5:10 PM PDT [...]
--- OUTSIDE RECORDS SUMMARY | ~2020-04-04 | XMS | Encounter Summary ---
Demographics + + + | Address | [address] | | | [place] [address] | + + + | Home Phone [...] Team Providers + +------+ + | Care Messenger Copy Name | Role | Phone | + [...] as of this encounter Progress Notes Interface, Safety Equipment Testing Specialist In - 08/03/2006 5:18 AM PSTCLINIC [...] hip at that time. Lloyd Garcia M.D. Car Hop of Orthopedics and Rehabilitation / [id number] / [id number] / [id number] / [id number] cc: Helio Noland M.D. [facility] [address] [place], [place] [id number] signed by Interface, Safety Equipment Testing Specialist In at 08/03/2006 5: 18 AM PSTdocumented in this encounter Plan of Treatment Not on filedocumented as of this encounter Visit Diagnoses Not on filedocumented in this encounter"
--- OUTSIDE RECORDS SUMMARY | ~2020-04-04 | XMS | Encounter Summary ---
Demographics + + + | Address | [address] | | | [place] [address] | + + + | Home Phone [...] Team Providers + +------+ + | Care Corn Breeder Name | Role | Phone | + +------+ + | Marta Jenkins EMBEDDED ENGINEER | PCP | | + +------+ [...] | Jamie Mailcode: [address] [place], | | | | | [place], [place] | [place] [address] | | | | | [address] | | | | | | [phone] | | | +--------+ + + + [...]
--- OUTSIDE RECORDS SUMMARY | ~2020-04-04 | XMS | Encounter Summary ---
Demographics + + + | Address | [address] | | | [place] [address] | + + + | Home Phone [...] Providers + +------+ + | Care Wood Boatbuilder Apprentice Name | Role | Phone | [...] | | | Osteoarthros | | [address] [facility] | | | | | is, | [address] | [address] [place] | | | | | unspecified | [facility] | [address] [place], | | | | | whether | [facility] [address] | [place] | | | | | generalized | [address] | [address] | | | | | or | [place], | Phone: | | | | | localized, | [place] [address] | [phone] | | | | | pelvic | Phone: | Fax: | | | | | region and | [phone] | [phone] | | | | | thigh | Fax: | | | | | | | [phone] | | +--------+--------+ + + + + [...] [address] | | | | | | [place], [place] | | | | | | [address] | | | | | | [phone] | | | +--------+---------+ + + + [...] agree with the note. TYRONE COLBY MD [facility] ORTHOPAEDICS & REHABILITATION [address] [place] [address] Mailcode: [id number] [place] [address] esfaye Saenz PA-C - 01/20/2009 [...] CRP pending. Offered to refer her to [facility] pain clinic if she would [...] DEPARTMENT OF | [address] | [place] [address] | | | PATHOLOGY | [address] | | | + + + + + | [facility] DEPARTMENT OF | [address] | [place] [address] | | | PATHOLOGY | [address] | | | + + + + + SEDIMENTATION RATE (01/20/2009 10:02 AM PDT) + +-------+ + + + | Component | Value | Ref Range | Performed | Pathologist | | | | | At | Signature | + +-------+ + + + | SEDIMENTATI | 16 | <21 mm/hr | [facility] | | | ON RATE | [...] + + + | [facility] | [address] [facility] | [place] [address] | | | PATHOLOGY | [address] | | | + + + + + | [facility] | [facility] | [place] [address] | | | PATHOLOGY | [address] [...] Change effective 10/26/08 | | | [facility] | | | [place] [address] | | | [place] [address] | | + + + + + + + + | Performing | Address | City/State/Zipcode | Phone Number | | Organization | | | | + + + + + | [facility] | [address] | [place] [address] | | | LABORATORY | | | | + + + + + documented in this encounter Visit Diagnoses + + | Diagnosis | + + | Hip pain Pain in joint, pelvic region and thigh | + + | Hip replacement Hip joint replacement by other means | + + documented in this encounter"
--- OUTSIDE RECORDS SUMMARY | ~2020-04-04 | XMS | Encounter Summary ---
Demographics + + + | Address | [address] | | | [place] [address] | + + + | Home Phone [...] Team Providers + +------+ + | Care Property Disposal Officer Name | Role | Phone | [...] | Transcriptions | + + | Interface, Resin Shaver In - 02/27/2006 3:05 AM PDT Date: [...] | | Malcom GarciaRT/aceD: 09/14/2003T: 09/15/2003 9:10 [id number] | |bellberna. The proximal greater trochanter fragment [...] |RT/magalie | | | | A | |[id number] | + + documented in this encounter Visit Diagnoses Not on filedocumented in this encounter"
--- OUTSIDE RECORDS SUMMARY | ~2020-04-04 | XMS | Encounter Summary ---
Demographics + + + | Address | [address] | | | [place] [address] | + + + | Home Phone [...] Providers + +------+ + | Care Cloth Mercerizing Supervisor Name | Role | Phone | [...] Pavilion | | | | | | [place], [place] | | | | | | [address] | | | | | | [phone] | | | +--------+ + + + [...] | | + +---------+ + + | [facility] DEPARTMENT OF | | | [...] | | + +---------+ + + | [facility] DEPARTMENT OF | | | [...] ON | | | | | | [facility], ACC# [id number], | | | | | | DONE [...]
--- OUTSIDE RECORDS SUMMARY | ~2020-04-04 | XMS | Encounter Summary ---
Demographics + + + | Address | [address] | | | [place] [address] | + + + | Home Phone [...] Team Providers + +------+ + | Care First Breaker Feeder Name | Role | Phone | + +------+ + | Marta Jenkins ROUTE JUMPER | PCP | | + +------+ + [...] | Jamie Mailcode: [id number] [place], | | | | | [place], [place] | [place] [address] | | | | | [address] | | | | | | [phone] | | | +--------+ + + + [...] | + + + + + | [facility] | [address] | [place] [address] | | | LAB-MICRO | | | [...] | | | | | performed at [facility] | | | | | | [facility] | | | | | | Laboratory. | | | | + + + + + + + + | Specimen | + + | | + + + + + + + | Performing | Address | City/State/Zipcode | Phone Number | | Organization | | | | + + + + + | [facility] | [address] | [place] [address] | | | LAB-MICRO | | | [...] + + + | [facility] | [address] | [place] [address] | | | LAB-MICRO | | | [...] + + + | [facility] | [address] | [place] [address] | | | LAB-MICRO | | | [...] + + + | [facility] | [address] | [place] [address] | | | LAB-MICRO | | | [...] | | | | | performed at [facility] | | | | | | [facility] | | | | | | Laboratory | | | | + + + + + + + + | Specimen | + + | | + + + + + + + | Performing | Address | City/State/Zipcode | Phone Number | | Organization | | | | + + + + + | [facility] | [address] | [place] [address] | | | LAB-MICRO | | | [...] | | | | Test performed at [facility] | | | | | | [facility] | | | | | | Laboratory. | | | | + + + + + + + + | Specimen | + + | | + + + + + + + | Performing | Address | City/State/Zipcode | Phone Number | | Organization | | | | + + + + + | [facility] | [address] | [place] [address] | | | LAB-MICRO | | | [...] | | | | | performed at [facility] | | | | | | [facility] | | | | | | Laboratory. | | | | + + + + + + + + | Specimen | + + | | + + + + + + + | Performing | Address | City/State/Zipcode | Phone Number | | Organization | | | | + + + + + | [facility] | [address] | [place] [address] | | | LAB-MICRO | | | [...] + + + | [facility] | [address] | [place] [address] | | | LAB-MICRO | | | [...] | + + + + + | [facility] | [address] | [place] [address] | | | LAB-MICRO | | | [...] + + + | [facility] | [address] | [place] [address] | | | LAB-MICRO | | | [...] | | | | | performed at [facility] | | | | | | [facility] | | | | | | Laboratory | | | | + + + + + + + + | Specimen | + + | | + + + + + + + | Performing | Address | City/State/Zipcode | Phone Number | | Organization | | | | + + + + + | [facility] | [address] | [place] [address] | | | LAB-MICRO | | | [...] + + + | [facility] | [address] | [place] [address] | | | LAB-MICRO | | | [...] | | | | | performed at [facility] | | | | | | [facility] | | | | | | Laboratory. | | | | + + + + + + + + | Specimen | + + | | + + + + + + + | Performing | Address | City/State/Zipcode | Phone Number | | Organization | | | | + + + + + | [facility] | [address] | [place] [address] | | | LAB-MICRO | | | | + + + + + documented in this encounter Visit Diagnoses Not on filedocumented in this encounter"
--- OUTSIDE RECORDS SUMMARY | ~2020-04-04 | XMS | Encounter Summary ---
Demographics + + + | Address | [address] | | | [place] [address] | + + + | Home Phone [...] Team Providers + +------+ + | Care Site Safety Manager Name | Role | Phone [...] [address] | | | | | | [address] [place] | | | | | | [address] | | | | | | [place], [place] | | | | | | [address] | | | | | | [phone] | | | +--------+ + + + [...]
--- OUTSIDE RECORDS SUMMARY | ~2020-04-04 | XMS | Encounter Summary ---
Demographics + + + | Address | [address] | | | [place] [address] | + + + | Home Phone [...] Providers + +------+ + | Care Barrel Waterer Name | Role | Phone | + [...] as of this encounter Progress Notes Interface, Proof Clerk In - 07/10/2006 1:00 AM PDTCLINIC [...] right total hip replacement. Lloyd Garcia M.D. [facility] / [id number] / [id number] / [id number] / cc: JILLIAN TODD MD [address] [id number] signed by Interface, Proof Clerk In at 07/10/2006 1:0 0 AM PDTdocumented in this encounter Plan of Treatment Not on filedocumented as of this encounter Visit Diagnoses Not on filedocumented in this encounter"
--- OUTSIDE RECORDS SUMMARY | ~2020-04-04 | XMS | Encounter Summary ---
Demographics + + + | Address | [address] | | | [place] [address] | + + + | Home Phone [...] Providers + +------+ + | Care Water Chemist Name | Role | Phone | [...] of this encounter Progress Notes Interface, Car Washer In - 08/20/2006 3:01 AM PSTCLINIC DATE: [...] primary care provider. Alpa Ritter LPN / [id number] / [id number] / [id number] / Tdocumented in this encounter Plan of Treatment Not on filedocumented as of this encounter Visit Diagnoses Not on filedocumented in this encounter"
--- OUTSIDE RECORDS SUMMARY | ~2020-04-04 | XMS | Encounter Summary ---
Demographics + + + | Address | [address] | | | [place] [address] | + + + | Home Phone [...] Team Providers + +------+ + | Care Balling Machine Operator Name | Role | Phone [...] | | | | Mailcode: [id number] | [place], [place] | | | | | [facility] | [address] | | | | | [place], [place] | [phone] | | | | | [address] | | | | | | [phone] | | | +--------+ + + + [...]
--- OUTSIDE RECORDS SUMMARY | ~2020-04-04 | XMS | Encounter Summary ---
Demographics + + + | Address | [address] | | | [place] [address] | + + + | Home Phone | | + + + | Preferred Language | Unknown | + + + | Marital Status | | + + + | Sabianist Affiliation | 1076 | + + + [...] Providers + +------+ + | Care Operations Manager Station Name | Role | Phone | + +------+ + PCP | Unavailable | + +------+ + Encounter Details +--------+ + + + + | Date | Type | Department | Care Team | Description | +--------+ + + + + | 10/05/ | Hospital | [facility] | Lei Greenwood | | | 2010 | Encounter | MED CTR XRAY [address] | F[address] | | | | | [address] | [address] [place] | | | | | [place] [address] | [address] | | | | | [phone] | [phone] | | | | | | | [...] [place]IGUEZ | | | | | | [address] | | | | | | | | +--------+---------+ + + + documented as of this encounter Visit Diagnoses Not on filedocumented in this encounter"
--- OUTSIDE RECORDS SUMMARY | ~2020-04-04 | XMS | Encounter Summary ---
Demographics + + + | Address | [address] | | | [place] [address] | + + + | Home Phone [...] Team Providers + +------+ + | Care Commutator Inspector Name | Role | Phone | [...] as of this encounter Progress Notes Interface, Rural Route Mail Carrier In - 08/20/2006 3:01 AM PSTCLINIC DATE: [...] views. Fox Chopra M.D. BETH / SALEEM [id number] / [id number] / [id number] / C: 02/18/2000 jerman Noland M.D. [place], [place] [address] [place] [address], [address] [place], [place] [id number] signed by Interface, Rural Route Mail Carrier In at 08/20/2006 3:01 AM PSTInterface, Rural Route Mail Carrier In - 08/20/2006 3:01 AM PSTCLINIC DATE: [...] from her physical therapist, Rustam Sykes, at [facility] in [place], [place], which indicates that she has been [...] in any additional way at phone number [phone]. PHYSICAL EXAMINATION: Essentially unchanged from previous exams. [...] necessary at this point. Lloyd Garcia M.D. Home Management Supervisor, Orthopedics and Rehabilitation / [id number] / [id number] / [id number] / cc: Helio Noland MD [place], [place] [address] [place] [address] documented in this encounter Plan of Treatment Not on filedocumented as of this encounter Visit Diagnoses Not on filedocumented in this encounter"
--- OUTSIDE RECORDS SUMMARY | ~2020-04-04 | XMS | Encounter Summary ---
Demographics + + + | Address | [address] | | | [place] [address] | + + + | Home Phone [...] Team Providers + +------+ + | Care Night Worker Name | Role | Phone | [...] as of this encounter Progress Notes Interface, Mosaic Tiler In - 06/19/2006 1:01 AM PDTCLINIC DATE: [...] ALLERGIES: None. SOCIAL HISTORY: She lives in [facility], and she is currently not working. [...] the appointment. Her current phone number is [phone]. At this point, we will not schedule her for a followup until we have these other appointments, and then we will have her followup with . Again, we will forward our recommendations to him. Pricilla Metcalf M.D. Kalyan Wu M.D. [facility] / [id number] / [id number] / [id number] / [id number] cc: Lloyd Garcia M.D. [id number] docume nted in this encounter Plan of Treatment Not on filedocumented as of this encounter Visit Diagnoses Not on filedocumented in this encounter"
--- OUTSIDE RECORDS SUMMARY | ~2020-04-04 | XMS | Encounter Summary ---
Demographics + + + | Address | [address] | | | [place] [address] | + + + | Home Phone [...] Team Providers + +------+ + | Care Curriculum Developer Name | Role | Phone | [...]
--- OUTSIDE RECORDS SUMMARY | ~2020-04-04 | XMS | Encounter Summary ---
Demographics + + + | Address | [address] | | | [place] [address] | + + + | Home Phone [...] Team Providers + +------+ + | Care Ob/Gyn Doctor Name | Role | Phone | + [...] Pavilion | | | | | | [place], [place] | | | | | | [address] | | | | | | [phone] | | | +--------+ + + + [...] | | | | | FINDINGS: The lab nurse | | | | | | radiographs [...] + +---------+ + + | [facility] DEPARTMENT OF | | | | | [...] | | | | | FINDINGS: The lab nurse | | | | | | radiographs [...] + +---------+ + + | [facility] DEPARTMENT OF | | | | | RADIOLOGY | | | | + +---------+ + + documented in this encounter Visit Diagnoses Not on filedocumented in this encounter"
--- OUTSIDE RECORDS SUMMARY | ~2020-04-04 | XMS | Encounter Summary ---
Demographics + + + | Address | [address] | | | [place] [address] | + + + | Home Phone [...] Providers + +------+ + | Care Sales Representative Groceries Name | Role | Phone | + +------+ + | Marta Jenkins FURNITURE DELIVERY DRIVER | PCP | | + +------+ + Encounter Details +--------+ + + + + | Date | Type | Department | Care Team | Description | +--------+ + + + + | 11/18/ | Abstract | [facility] | Clinic, Surgery | | | 2019 | | [facility] | | | | | | Akil Gil | | | | | | Mailcode: [facility] | | | | | | [facility] | | | | | | Healing, [address] | | | | | | [facility] [place] | | | | | | [address] | | | | | | [phone] | | | +--------+ + + + [...]
--- OUTSIDE RECORDS SUMMARY | ~2020-04-04 | XMS | Encounter Summary ---
Demographics + + + | Address | [address] | | | [place] [address] | + + + | Home Phone [...] Providers + +------+ + | Care Customer Relations Specialist Name | Role | Phone [...] as of this encounter Progress Notes Interface, Patient Registration Clerk In - 07/22/2006 3:18 AM PDTCLINIC DATE: [...] of the right knee. Lloyd Garcia M.D. outdoor studies professor, Orthopedics and Rehabilitation. BIRGIT / SALEEM [id number] / [id number] / [id number] / [id number] cc: JILLIAN TODD MD [address] [facility] [id number] signed by Interface, Patient Registration Clerk In at 07/22/2006 3:1 8 AM PDTdocumented in this encounter Plan of Treatment Not on filedocumented as of this encounter Visit Diagnoses Not on filedocumented in this encounter"
--- OUTSIDE RECORDS SUMMARY | ~2020-04-04 | XMS | Encounter Summary ---
Demographics + + + | Address | [address] | | | [place] [address] | + + + | Home Phone [...] Team Providers + +------+ + | Care Leather Dresser Name | Role | Phone | + [...] Pavilion | | | | | | [place], [place] | | | | | | [address] | | | | | | [phone] | | | +--------+ + + + [...] | AB, IGM | Test performed by [facility] | | | | | | [facility] | | | | | | First[facility]. | | | | + + + + + + + + | Specimen | + + | | + + + + + + + | Performing | Address | City/State/Zipcode | Phone Number | | Organization | | | | + + + + + | [facility] | [address] | [place] [address] | | | LABORATORY | | | [...] by | | | | | | [facility] | | | | | | [facility]. | | | | + + + + + + + + | Specimen | + + | | + + + + + + + | Performing | Address | City/State/Zipcode | Phone Number | | Organization | | | | + + + + + | [facility] | [address] | [place] [address] | | | LABORATORY | | | [...] | + + + + + | [facility] | [address] | [place] [address] | | | LABORATORY | | | [...] | AB TOTAL | Test performed by [facility] | | | | | | [facility] | | | | | [...] | + + + + + | [facility] | [address] | [place] [address] | | | LABORATORY | | | [...] [facility] | [address] | [place] [address] | | | PATHOLOGY | [address] | | | + + + + + | [facility] | [address] | [place] [address] | | | PATHOLOGY | [address] [...] + + + + + | [facility] DEPARTMENT OF | [address] | [place] [address] | | | PATHOLOGY | [address] | | | + + + + + | [place] DEPARTMENT OF | [address] | [place] [address] | | | PATHOLOGY | [address] [...] + | [facility] | [facility] | [place] [address] | | | PATHOLOGY | [address] | | | + + + + + | [facility] | [facility] | [place] [address] | | | PATHOLOGY | [address] [...] DEPARTMENT OF | [address] | [place] [address] | | | PATHOLOGY | [address] | | | + + + + + | [place] DEPARTMENT OF | [address] | [place] [address] | | | PATHOLOGY | [address] [...] + + + + + | [facility] DEPARTMENT OF | [address] | [place] [address] | | | PATHOLOGY | [address] | | | + + + + + | [facility] DEPARTMENT OF | [address] | [place] [address] | | | PATHOLOGY | [address] [...] OF | [address] | [place] [address] | | | PATHOLOGY | [address] | | | + + + + + | [facility] | [address] | [place] [address] | | | PATHOLOGY | [address] [...] | + + + + + | [facility] | [address] | [place] [address] | | | LABORATORY | | | [...] + + + + + | [facility] DEPARTMENT OF | [address] | [place] [address] | | | PATHOLOGY | [address] | | | + + + + + | [place] DEPARTMENT OF | [address] | [place] [address] | | | PATHOLOGY | [address] [...] + + + + + | [facility] DEPARTMENT OF | [address] | [place] [address] | | | PATHOLOGY | [address] | | | + + + + + | [place] DEPARTMENT OF | [address] | [place] [address] | | | PATHOLOGY | [address] [...] + + + + | PRODUCT | [id number] | | [facility] | | | UNIT [...] | [facility] | [address] [facility] | [place] [address] | | | PATHOLOGY | [address] | | | + + + + + | [facility] | [address] [place] [address] | [place] [address] | | | PATHOLOGY | [address] [...] + + + + | PRODUCT | [id number] | | [facility] | | | UNIT [...] + + + + + | [facility] DEPARTMENT OF | [address] | [place] [address] | | | PATHOLOGY | [address] | | | + + + + + | [facility] DEPARTMENT OF | [address] | [place] [address] | | | PATHOLOGY | [address] [...] DEPARTMENT OF | [address] | [place] [address] | | | PATHOLOGY | [address] | | | + + + + + | [facility] | [address] | [place] [address] | | | PATHOLOGY | [address] [...] | | | | | available on [employer] and | | | | | | [...] | + + + + + | [facility] | [address] | [place] [address] | | | LAB-MICRO | | | [...] + + + + + | [facility] | [address] | [place] [address] | | | LAB-MICRO | | | [...] | + + + + + | [facility] | [address] | [place] [address] | | | LAB-MICRO | | | | + + + + + documented in this encounter Visit Diagnoses Not on filedocumented in this encounter"
--- OUTSIDE RECORDS SUMMARY | ~2020-04-04 | XMS | Encounter Summary ---
Demographics + + + | Address | [address] | | | [place] [address] | + + + | Home Phone [...] Providers + +------+ + | Care Product Strategy Director Name | Role | Phone | [...] | | | | | (sacroiliac) | [facility], | | | | | joint | Rd | 10th Floor | | | | | inflammation | [place], [place] | [place], [place] | | | | | ([facility]) | [address] | [address] | | | | | Procedures | | Phone: | | | | | CT INJ | | [phone] | | | | | SACROILIAC | | Fax: | | | | | JOINT | | [phone] | | | | | W/NEEDLE | | | | | | | PLCMT | | | +--------+--------+ + + + + Encounter Details +--------+ + + + + | Date | Type | Department | Care Team | Description | +--------+ + + + + | 03/22/ | Hospital | Diagnostic Imaging | | | | 2009 | Encounter | Services at [facility] | | | | | | [address] | | | | | | Roxann [place]OUR | | | | | | [address] | | | | | | [place], [place] | | | | | | [address] | | | | | | [phone] | | | +--------+ + + + [...] | + + + +---------+--------+ + | [place] | Take by mouth. | | [...] None. | | | | | | Choirmaster: Dr. Moss, | | | | | | residential concierge. | | | | | | Fiberglass Roving Winder: | | | | | | Sue, [...] | | | | postal support employee. [employer] | | | | | | imaging [...]
--- OUTSIDE RECORDS SUMMARY | ~2020-04-04 | XMS | Encounter Summary ---
Demographics + + + | Address | [address] | | | [...] Team Providers + +------+ + | Care Spin Table Operator Name | Role | Phone [...] Pavilion | | | | | | [place], [place] | | | | | | [address] | | | | | | [phone] | | | +--------+ + + + [...] near | | | | | | [id number] | | | | | | appearance [...] | | + +---------+ + + | [facility] DEPARTMENT OF | | | | | RADIOLOGY | | | | + +---------+ + + documented in this encounter Visit Diagnoses Not on filedocumented in this encounter"
--- OUTSIDE RECORDS SUMMARY | ~2020-04-04 | XMS | Encounter Summary ---
Demographics + + + | Address | [address] | | | [place] [address] | + + + | Home Phone [...] + +------+ + | Care Director Of Teenage Activities Name | Role | Phone | + [...] Rd | | | | | | [place], [place] | | | | | | [address] | | | +--------+ + + + [...]
--- OUTSIDE RECORDS SUMMARY | ~2020-04-04 | XMS | Encounter Summary ---
Demographics + + + | Address | [address] | | | [place] [address] | + + + | Home Phone [...] Providers + +------+ + | Care Clinical Appeals Specialist Name | Role | Phone | [...] [facility] DEPARTMENT | [address] [facility] | [place] [address] | | | PATHOLOGY | [address] | | | + + + + + | [facility] DEPARTMENT OF | [address] [facility] | [place] [address] | | | PATHOLOGY | [address] [...] DEPARTMENT OF | [address] | [place] [address] | | | PATHOLOGY | [address] | | | + + + + + | [place] DEPARTMENT OF | [address] | [place] [address] | | | PATHOLOGY | [address] [...] + + | [facility] | [address] [facility] | [place] [address] | | | PATHOLOGY | [address] | | | + + + + + | [facility] DEPARTMENT OF | [address] [facility] | [place] [address] | | | PATHOLOGY | [address] [...] + + | [facility] | [address] | [place] [address] | | | PATHOLOGY | [address] | | | + + + + + | [facility] | [address] | [place] [address] | | | PATHOLOGY | [address] | | | + + + + + documented in this encounter Visit Diagnoses Not on filedocumented in this encounter"
--- OUTSIDE RECORDS SUMMARY | ~2020-04-04 | XMS | Encounter Summary ---
Demographics + + + | Address | [address] | | | [place] [address] | + + + | Home Phone [...] Team Providers + +------+ + | Care Wreath Machine Operator Name | Role | Phone [...] | | | unspecified | | Rd [place], | | | | | whether | | [place] | | | | | generalized | | [address] | | | | | or | | Phone: | | | | | localized, | | [phone] | | | | | pelvic | | Fax: | | | | | region and | | [phone] | | | | | thigh | [...] | | | Mailcode: [id number] | [place], [place] | | | | | [facility] | [address] | | | | | [place], [place] | [phone] | | | | | [address] | | | | | | [phone] | | | +--------+---------+ + + + [...]
--- OUTSIDE RECORDS SUMMARY | ~2020-04-04 | XMS | Encounter Summary ---
Demographics + + + | Address | [address] | | | [place] [address] | + + + | Home Phone [...] Providers + +------+ + | Care Industrial Hygienist Name | Role | Phone | [...] | | | | [address] | [facility] | | | | | Mailcode: [id number] | [place], [place] | | | | | [facility] | [address] | | | | | [place], [place] | [phone] | | | | | [address] | | | | | | [phone] | | | +--------+ + + + [...]
--- OUTSIDE RECORDS SUMMARY | ~2020-04-04 | XMS | Encounter Summary ---
Demographics + + + | Address | [address] | | | [place] [address] | + + + | Home Phone [...] Team Providers + +------+ + | Care Mammography Tech Name | Role | Phone | [...] | | | (sacroiliac) | [facility], | | | | | joint | Rd | 10th Floor | | | | | inflammation | [place], [place] | [place] | | | | | ([facility]) | [address] | [address] | | | | | Procedures | | Phone: | | | | | CT INJ | | [phone] | | | | | SACROILIAC | | Fax: | | | | | JOINT | | [phone] | | | | | W/NEEDLE | [...] | | | | | | Rd [place], | | | | | | | [place] | | | | | | | [address] | | | | | | | Phone: | | | | | | | [phone] | | | | | | | Fax: | | | | | | | [phone] | +--------+--------+ + + + + Encounter [...] | | | | Mailcode: [id number] | [place], [place] | ([facility]) | | | | [facility] | [address] | | | | | [place], [place] | [phone] | | | | | [address] | | | | | | [phone] | | | +--------+---------+ + + + [...] and plan of care. TYRONE COLBY MD [facility] [address] [facility] Mailcode: [id number] [facility] [phone] esfaye Saenz PA-C - 02/20/2010 3:15 PM [...] None. | | | | | | Continuous Weld Pipe Mill Supervisor: Dr. Moss, | | | | | | certified prosthetist vice president. | | | | | | Er Nurse: | | | | | | Sue [...] the | | | | | | director of operations support. Supervisor Pastry | | | | | | imaging [...] MOSS, | | | | | | MalcmoReviewer: KIM | | | | | | [...]
--- OUTSIDE RECORDS SUMMARY | ~2020-04-04 | XMS | Encounter Summary ---
Demographics + + + | Address | [address] | | | [place] [address] | + + + | Home Phone [...] Team Providers + +------+ + | Care Advanced Manufacturing Engineer Name | Role | Phone | [...] Pavilion | | | | | | [place], [place] | | | | | | [address] | | | | | | [phone] | | | +--------+ + + + [...]
--- OUTSIDE RECORDS SUMMARY | ~2020-04-04 | XMS | Encounter Summary ---
Demographics + + + | Address | [address] | | | [place] [address] | + + + | Home Phone [...] Team Providers + +------+ + | Care Powertrain Control Systems Engineer Name | Role | Phone [...] | | | | due to | [place] | | | | | unspecified | [address] | [address] | | | | | device, | Phone: | Phone: | | | | | implant, and | [phone] | [phone] | | | | | graft | Fax: | Fax: | | | | | | [phone] | [phone] | +--------+--------+ + + + + Encounter [...] | | | [address] | [address] | (Primary Dx) | | | | Loop Physician's | [place], [place] | | | | | [place], 3rd floor | [address] | | | | | [place], [place] | [phone] | | | | | [address] | | | | | | [phone] | | | +--------+---------+ + + + [...] CLINIC FOLLOW UP Primary Care Physician: Carlos [address] [address] Ms. Galdamez presents to Infectious Diseases Clinic [...] 18, a nd was therefore admitted to [facility] out of concern for R hip infection. [...] discharged in stable condition on 10/22/2010 to [facility] with OPAT & Orthopedic follow-up planned in 2 weeks ti ia. Interim History obtained 11/17/2010: Ms. Galdamez presents [...] R hip incision has healed very well. [place] were removed locally, and there has been [...] as well as in shoes and socks. Friendship-3 Fatty Acids-Vitamin E (FISH OIL) 1,000 mg [...] She will travel to her PCP in [place] in 1 weeks time for another PICC [...] a nd follow-up planning. Carolina Putnam PA-C [facility] Department of Infectious Disease Outpatient IV Antibiotic Therapy Clinic (OPAT) Pager ID: [phone] Mail Code X895 [place] [address] documented in th is encounter Plan of [...] + + + + + | [facility] | [address] | [place] [address] | | | PATHOLOGY | [address] [...] At | + + + | RLB ([facility] [address] [facility]) | [facility] | | [facility] [address] | REGIONAL | | [place] [address] | LABORATORY | + + + + + + + + | Performing | Address | City/State/Zipcode | Phone Number | | Organization | | | | + + + + + | [facility] | [address] | [place] [address] | | | LABORATORY | | | [...] + + | [facility] DEPARTMENT OF | [address] | [place] [address] | | | PATHOLOGY | [address] [...] | | | DEPARTMENT | | | NIGERIEN | | | OF | | | [...] DEPARTMENT OF | [address] | [place] [address] | | | PATHOLOGY | [address] [...] + + + + + | [facility] | [address] | [place] [address] | | | PATHOLOGY | [address] | | | + + + + + documented in this encounter Visit Diagnoses + + | Diagnosis | + + | 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
--- OUTSIDE RECORDS SUMMARY | ~2020-04-04 | XMS | Encounter Summary ---
Demographics + + + | Address | [address] | | | [place] [address] | + + + | Home Phone [...] Team Providers + +------+ + | Care Marking Machine Operator Name | Role | Phone [...] | Surgery -Hand | [facility] | | | | | Surgery [address] | [place] [address] | | | | | [address] | | | | | | Mailcode: [id number] | | | | | | Physician's Pavilion | | | | | | [place], [place] | | | | | | [address] | | | | | | [phone] | | | +--------+ + + + [...] + + + + | PRODUCT | [id number] | | [facility] | | | UNIT [...] | [facility] DEPARTMENT OF | [address] | [place] [address] | | | PATHOLOGY | [address] | | | + + + + + | [facility] DEPARTMENT OF | [address] | [place] [address] | | | PATHOLOGY | [address] [...] + + + + | PRODUCT | [id number] | | [facility] | | | UNIT [...] [facility] DEPARTMENT OF | [address] [facility] | [place] [address] | | | PATHOLOGY | [address] | | | + + + + + | [facility] DEPARTMENT OF | [address] [facility] | [place] [address] | | | PATHOLOGY | [address] [...] | [facility] | [address] | [place] [address] | | | PATHOLOGY | [address] | | | + + + + + | [facility] | [address] | [place] [address] | | | PATHOLOGY | [address] | | | + + + + + documented in this encounter Visit Diagnoses Not on filedocumented in this encounter"
--- OUTSIDE RECORDS SUMMARY | ~2020-04-04 | XMS | Encounter Summary ---
Demographics + + + | Address | [address] | | | [place] [address] | + + + | Home Phone [...] Providers + +------+ + | Care Junior Copywriter Name | Role | Phone | + +------+ + | Travis Mcginnis MD | PCP | | + +------+ + Encounter Details +--------+ + + + + | Date | Type | Department | Care Team | Description | +--------+ + + + + | 07/01/ | Abstract | Orthopaedics | Note, Orthopedics | | | 2018 | | [facility] at [facility] | Clinic | | | | | for Health and | | | | | | Healing [address] | | | | | | Louise Mailcode: | | | | | | [facility] | | | | | | Health and Healing, | | | | | | Building | | | | | | Floor [place], [place] | | | | | | [address] | | | | | | [phone] | | | +--------+ + + + [...] + documented as of this encounter Progress Gloria Byers - 07/01/2018 9:38 AM PDT Orthopaedics New Patient Record Check List Procedure Comments Date requested Records/Imaging received? If so, what format? Where? What would you like to be seen for (body part and laterality)? L hip DOI, if applicable? n/a Prior Surgery? 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 2009. Dr Lloyd NASCIMENTO R JUAN DAVID 2002 Have you seen anyone for this yet? [facility] in [place]. ED 06/24 [facility]. Has had sepsis and MRSA and need to lose 35 lbs per this office. [facility] [phone] 07/03 via phone MRI May [address] [facility]'s impax X-Ray May [address] [facility]' impax CT no Ultrasound no Other imaging [...] will you be traveling for this appointment? [place] Note: If patient traveling greater than 1 hour, consider coordinating any additi onal testing or appointments. Medical Review needed? yes Reminders: ? Ask patient if they d like to sign up for [facility] [employer] websitehart ? Don t forget to pull in CareEveryWhere Additional Comments: documented in this encounte r Plan of Treatment Not on filedocumented as of this encounter Visit Diagnoses Not on filedocumented in this encounter
--- OUTSIDE RECORDS SUMMARY | ~2020-04-04 | XMS | Encounter Summary ---
Demographics + + + | Address | [address] | | | [place] [address] | + + + | Home Phone [...] Team Providers + +------+ + | Care Typists Supervisor Name | Role | Phone | [...] as of this encounter Progress Notes Interface, Dry Transfer Worker In - 09/15/2006 5:11 AM PSTCLINIC DATE: [...] Matthew Garcia MD [address] [place], [place] [id number] signed by Interface, Dry Transfer Worker In at 09/15/2006 5:11 AM PSTInterface, Dry Transfer Worker In - 09/13/2006 3:12 AM PSTCLINIC DATE: [...] evaluation and treatment recommendations. Lloyd Garcia M.D., Director Maternal Child, Orthopedics and Rehabilitation AH:[id number] Electronically signed by Bill, Dry Transfer Worker In at 1 11/14/2005 3:12 AM PSTdocumented in this encounter Plan of Treatment Not on filedocumented as of this encounter Visit Diagnoses Not on filedocumented in this encounter"
--- OUTSIDE RECORDS SUMMARY | ~2020-04-04 | XMS | Encounter Summary ---
Demographics + + + | Address | [address] | | | [place] [address] | + + + | Home Phone [...] Team Providers + +------+ + | Care Skimmer Name | Role | Phone | + [...] Pavilion | | | | | | [place], [place] | | | | | | [address] | | | | | | [phone] | | | +--------+ + + + [...]
--- OUTSIDE RECORDS SUMMARY | ~2020-04-04 | XMS | Encounter Summary ---
Demographics + + + | Address | [address] | | | [place] [address] | + + + | Home Phone [...] Providers + +------+ + | Care Instrument Installer Name | Role | Phone | [...] [facility] | | | | | [address] | [place], [place] | | | | | [place], [facility] floor | [address] | | | | | [place], [place] | [phone] | | | | | [address] | | | | | | [phone] | | | +--------+ + + + [...]
--- OUTSIDE RECORDS SUMMARY | ~2020-04-04 | XMS | Encounter Summary ---
Demographics + + + | Address | [address] | | | [place] [address] | + + + | Home Phone [...] Team Providers + +------+ + | Care Development Technical Lead Name | Role | Phone [...] | | | | | [place] | | | | | | [place] [address] | | | | | | [phone] | | +--------+ + + + + [...] by | | | | | | [facility] | | | | | | [facility]. | | | | + + + + + + + + | Specimen | + + | | + + + + + + + | Performing | Address | City/State/Zipcode | Phone Number | | Organization | | | | + + + + + | [facility] | [address] | [place] [address] | | | LABORATORY | | | | + + + + + documented in this encounter Visit Diagnoses Not on filedocumented in this encounter"
--- OUTSIDE RECORDS SUMMARY | ~2020-04-04 | XMS | Encounter Summary ---
Demographics + + + | Address | [address] | | | [place] [address] | + + + | Home Phone [...] + +------+ + | Care Director Of Professional Services Name | Role | Phone | [...] Description | +--------+---------+ + + + | 01/31/ | Office | [facility] | Ladarius Martínez PA | MAMADOU on CPAP (Primary | | 2015 | Visit | SLEEP DISORDER [address] | [address] | Dx) | | | | [address] [place] | [place], [place] | | | | | [place] [address] | [address] | | | | | [phone] | | | +--------+---------+ + + + [...] + | Blood Pressure | 138/86 | 01/31/2015 10:28 AM | | | | | PDT | | + + + + + | Pulse | 113 | 01/31/2015 10:28 AM | | | | | PDT | | + + + + + | Temperature | - | - | | + + + + + | Respiratory Rate | 18 | 01/31/2015 10:28 AM | | | | | PDT | | + + + + + | Oxygen Saturation | 95% | 01/31/2015 10:28 AM | | | | | PDT | | + + + + + | Inhaled Oxygen | - | - | | | Concentration | | | | + + + + + | Weight | 136.3 kg (300 lb 8 | 01/31/2015 10:28 AM | | | | oz) | PDT | | + + + + + | Height | - | - | | + + + + + | Body Mass Index | 51.58 | 03/06/2012 12:00 AM | | | | | PDT | | + + + + + documented in this encounter Progress Notes Ladarius Martínez PA - 01/31/2015 10:42 AM PDT Subjective: Patient ID: Shelby Galdamez is a 54 y.o. female. HPI last office visit was: 08/02/2014 date of polysomnography: 09/18/2006 AHI: 57.1 O2%: 87% Machine type: ResMed S9 with nasal mask obtained from: In [facility] in [place] Pressure: 9-16 cm Median: 11.5 cm 95%: 13.3 cm Maximum: 14.2 cm CPAP download shows CPAP useage # nights: 266/365 159/208 % of nights >4 hours: 36% 38% average usage (all nights): 3:12 3:16 average usage (nights used): 4:24 AHI: 2.3 Shelby comes in for CPAP compliance. She says that she sleeps much better when she uses he r CPAP. She says she has an irregular sleep schedule and often only sleeps for a few hours at night and sometimes doesn't sleep at all. She prefers using her CPAP, but recently has h ad problems with congestion. Her nasal mask does not work on those nights because she canno t breathe through her nose. She had not considered using a full face mask. I have discussed the download in detail. This shows that her sleep apnea is well controlle d, with an AHI of 2.3. It also shows that her leaks are mostly controlled. She has been interested in getting her equipment from [facility] in [place] instead of In [facility]. Review of Systems Objective: Physical Exam Assessment: Problem # 1: OBSTRUCTIVE SLEEP APNEA (ICD-327.23) This is controlled with CPAP, but she has struggled with wearing her CPAP consistently trevin use of problems with congestion. Plan: She is to continue with CPAP indefinitely. She is to work harder at wearing her CPAP 100% of the time she is asleep. If she wakes without her mask, she is to go back to sleep while wearing her CPAP. She is to get a full face mask which will help her breathe through her n ose or mouth. I will follow up again in 1 year, sooner prn. Fifteen minutes were spent upbi-kn-ygcg, wit h the majority of time spent in counseling. [...] RODRIGUEZ | | | | | | [id number] | | | | | | | | +--------+---------+ + + + documented as of this encounter Visit Diagnoses + + | Diagnosis | + + | MAMADOU on CPAP - Primary Obstructive sleep apnea (adult) (pediatric) | + + documented in this encounter"
--- OUTSIDE RECORDS SUMMARY | ~2020-04-04 | XMS | Encounter Summary ---
Demographics + + + | Address | [address] | | | [place] [address] | + + + | Home Phone [...] Team Providers + +------+ + | Care Computator Name | Role | Phone | + [...] | Transcriptions | + + | Interface, Nursing Secretary In - 02/27/2006 3:05 AM PDT Date: [...] | | Malcom GarciaRT/aceD: 09/14/2003T: 09/15/2003 9:10 [id number] | |bellberna. The proximal greater trochanter fragment [...] |RT/magalie | | | | A | |[id number] | + + documented in this encounter Visit Diagnoses Not on filedocumented in this encounter"
--- OUTSIDE RECORDS SUMMARY | ~2020-04-04 | XMS | Clinical Summary ---
Demographics + + + | Address | [address] | | | [place] [address] | + + + | Home Phone [...] Providers + +------+ + | Care Field Service Consultant Name | Role | Phone | + +------+ + | JenkinsMarta jackson ELEVATOR CONSTRUCTOR ELECTRIC | PCP | | + +------+ + Source Comments LION is fully live on both [facility] Allergies + + + + + + [...] | | + + + +---------+------+------+-------+ | [place]-3 Fatty | Take by mouth. | | [...] | | | + +--------+ +--------+-------+---------+--------+ | [employer]OL [employer]IA [employer]IST MEDICAID | [employer] MEDIA SPECIALIST | xxxxxxxx | 06/01/20 | | | [...] gigi | | | 7 (Home) | [address] | + +--------+ +--------+ + + | Shelby Galdamez | Third | Self | [birth year] | [address] | | | Libertarian | | 1960 | [phone] | [address] [place] | | | Liabil | | | 7 (Home) | [address] | | | ity | | | | | + +--------+ +--------+ + + Advance Directives + + + + + | Type | Date Recorded | Patient | Explanation | | | | Drum Sander Setter | | + + + + + | Advance | | | | | Directives and | | | | | Living Will | | | | + + + + + | Power of | | | | | Phlebotomy Coordinator | | | | + + + [...]
--- OUTSIDE RECORDS SUMMARY | ~2020-04-04 | XMS | Encounter Summary ---
Demographics + + + | Address | [address] | | | [place] [address] | + + + | Home Phone [...] Team Providers + +------+ + | Care Duct Layer Supervisor Name | Role | Phone | [...] Pavilion | | | | | | [place], [place] | | | | | | [address] | | | | | | [phone] | | | +--------+ + + + [...] + + | Performing | Address | City/State/[facility] | Phone Number | [...]
--- OUTSIDE RECORDS SUMMARY | ~2020-04-04 | XMS | Encounter Summary ---
Demographics + + + | Address | [address] | | | [place] [address] | + + + | Home Phone [...] Team Providers + +------+ + | Care Wick And Base Assembler Name | Role | Phone | [...] Pavilion | | | | | | [place], [place] | | | | | | [address] | | | | | | [phone] | | | +--------+ + + + [...]
--- OUTSIDE RECORDS SUMMARY | ~2020-04-04 | XMS | Encounter Summary ---
Demographics + + + | Address | [address] | | | [place] [address] | + + + | Home Phone [...] Providers + +------+ + | Care Information Receptionist Name | Role | Phone | [...] | Transcriptions | + + | Interface, Inventory Audit Clerk In - 09/19/2005 9:05 PM PST Date: | | 09/29/2003Attending Surgeon: Lloyd Garcia M.D.Pigment Pumper(s): | | Benson Boone M.D.Preoperative Diagnosis:Right greater [...] Boone M.D.Lloyd | | Sierra Garcia.RT / [id number] / [id number] / [id number] / [id number]: 10/21/2003T: 10/22/2003 | |where she had a [...] | | | |RT / HS | |[id number] / [id number] / [id number] / [id number] | | | | | + + documented in this encounter Visit Diagnoses Not on filedocumented in this encounter"
--- OUTSIDE RECORDS SUMMARY | ~2020-04-04 | XMS | Encounter Summary ---
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 She is able to ambulate [...] adduction which is not painful. X-rays show meqqyikd-ar-jybrbk right hip DJD with joint space narrowing asymmetrically and large marginal osteocytes, most notably superiorly, posteriorly, as well as inferiorly and less so anteriorly. Right knee x-rays show lkxh-qb-awcgaiai degenerative changes. No radiopaque loose bodies. AP, lateral, and oblique views of the lumbosacral spine show lzxe-es-btlwbszh facet arthrosis at L3-L4, L4-L5, and L5-S1, right greater than left. Disk spaces are well maintained. There is no spondylolisthesis or spondylolysis. ASSESSMENT: Vczpdoan-it-uarags hypotrophic osteoarthritis of the right hip; mgkn-sv-xypkixwe degenerative changes of the right knee; and hdtb-lm-ltsyrsxs, right greater than left, lumbar and lumbosacral [...] the right hip. Lloyd Garcia M.D. / [id number] / [id number] / [id number] / [id number] C: 06/12/2000 otilia cc: JILLIAN TODD M.D. PJuan JoseOJuan Jose [place], [place] [address]Pkktkimzvozgrf signed by Interface, Nuclear Equipment Design Engineer In at 08/10/2006 3: 02 AM PSTdocumented in this encounter Plan of Treatment Not on filedocumented as of this encounter Visit Diagnoses Not on filedocumented in this encounter"
--- OUTSIDE RECORDS SUMMARY | ~2020-04-04 | XMS | Encounter Summary ---
Demographics + + + | Address | [address] | | | [place] [address] | + + + | Home Phone [...] Team Providers + +------+ + | Care Soa Engineer Name | Role | Phone | [...] | | | | | [place] | | | | | | [place] [address] | | | | | | [phone] | | +--------+ + + + + [...] by | | | | | | [facility] | | | | | | [facility]. | | | | + + + + + + + + | Specimen | + + | | + + + + + + + | Performing | Address | City/State/Zipcode | Phone Number | | Organization | | | | + + + + + | [facility] | [address] | [place] [address] | | | LABORATORY | | | | + + + + + documented in this encounter Visit Diagnoses Not on filedocumented in this encounter"
--- OUTSIDE RECORDS SUMMARY | ~2020-04-04 | XMS | Encounter Summary ---
Demographics + + + | Address | [address] | | | [place] [address] | + + + | Home Phone [...] Team Providers + +------+ + | Care Employment Training Specialist Name | Role | Phone [...] + + + + | 11/13/ | Accounting Machine Servicer | Infectious | Carolina Putnam | | | 2010 | | [facility] at [facility] | K, PA-C [address] | | | | | [address] | [facility] | | | | | Loop Physician's | [place], [place] | | | | | [place], 3rd floor | [address] | | | | | [place], [place] | [phone] | | | | | [address] | | | | | | [phone] | | | +--------+ + + + [...]
--- OUTSIDE RECORDS SUMMARY | ~2020-04-04 | XMS | Encounter Summary ---
Demographics + + + | Address | [address] | | | [place] [address] | + + + | Home Phone [...] Team Providers + +------+ + | Care Custom Shoemaker Name | Role | Phone | + [...] | | Karen Del Rosario NP | [facility] [address] | | | | | TRANSTHORACI | [address] | [address] | | | | | C | [address] | [address] | | | | | ECHOCARDIO[address] | Rd | [place] | | | | | AM, ADULT | [place], [place] | [facility] | | | | | | [address] | floor | | | | | | | [facility] [place] | | | | | | | [address] | | | | | | | Phone: | | | | | | | [phone] | +--------+--------+ + + + + Diagnostic [...] | | | X-RAY | Karen E, HIGH SCHOOL SOCIAL STUDIES TEACHER | [address] | | | | | ASPIRATION | [address] | [address] | | | | | [place] INJECTION | [facility] | Mailcode: | | | | | MAJOR JOINT | Rd | [facility] | | | | | W/NEEDLE | [facility] [place] | for Health | | | | | PLCMT | [address] | and Healing, | | | | | | | Building 1, | | | | | | | 3rd Floor | | | | | | | [facility] [place] | | | | | | | [address] | | | | | | | Phone: | | | | | | | [phone] | | | | | | | Fax: | | | | | | | [phone] | +--------+--------+ + + + + Reason [...] | | | | | | | [address] | | | | | | | [address] | | | | | | | Jamie [facility] | | | | | | | [facility] | | | | | | | [place], [place] | | | | | | | [address] | | | | | | | Phone: | | | | | | | [phone] | +--------+--------+ + + + + Encounter [...] | 10/23/ | | Rose Ocampo | [place], [place] | | | 2010 | | (MNP/OLD [facility]) | [address] | | | | | [place], [place] | [phone] | | | | | [address] | | | | | | | Jillian Bee MD | | | | | | [address] | | | | | | Roxann Ayala [place], | | | | | | [place] [address] | | | | | | [phone] | | | | | | | | | | | | Tisha Figueroa FNP | | | | | | [address] | | | | | | [place], | | | | | | [place] [address] | | | | | | [phone] | | | | | | | | | | | | Rustam Duenas MD | | | | | | [address] | | | | | | [facility], | | | | | | [place] [address] | | | | | | [phone] | | | | | | | | | | | | Benson Cooper MD | | | | | | [address] [place] | | | | | | [address] [place], [place] | | | | | | [address] | | | | | | | | | | | | Kalyan Arias MD | | | | | | [address] | | | | | | [facility], | | | | | | [place] [address] | | | | | | [phone] | | | | | | | [...] might be different f rom the original. [facility]PART[facility]THOPAEDICS [facility]ABIL[facility]ATION INPATIENT HOSPITAL DISCHARGE SUMMARY & INTERDISCIPLINARY INSTRUCTIONS Patient: Chastity Galdamez CSN: [id number] Admission Date: 10/12/2010 Discharge Date: 10/22/2010 Attending Physician: Kalyan Arias MD PCP: Travis Cruz MD Service: [facility] Orthopaedics & Rehabilitation Diagnoses Principal Final [...] sut ure/staple removal and wound check. Call [phone] to arrange appointment date and time. Outpatient antibiotics: [facility] referral has been made (for outpatient antibiotics). -While on outpatient antibiotics, weekly CBC/diff, CMP, ESR, & CRP should be checked, with results faxed to Dr. Teresa or Elvia SPENCE at [facility] clinic (fax #[phone]). Current Discharge Medication List START taking these [...] W-FE,OTHER MIN (CENTRUM ORAL) Take by mouth. Pisek-3 Fatty Acids-Vitamin E (FISH OIL) 1,000 mg [...] administration instructions. - Call orthopedic clinic at [phone] if any persistent, localized swelling that does [...] and ask for the orthopaedic surgery resident continuing education dean. Additional postop instructions/ What to expect: -Apply [...] a pharmacy. Please arrange for someone to picket labor union your prescription or allow additional time for [...] 2 weeks (or as previously scheduled). Call [phone] to confirm or schedul e this appointment. [...] + + + +---------+ + + | Pisek-3 Fatty | Take by mouth. | | [...] 11 Date: 10/23/2010 Patient: CHASTITY Osei TALLY [id number] Interval Hx: Afebrile. Wants to go home. [...] Dr. Teresa or Elvia SPENCE at [facility] clinic (fax #[phone]). -Dispo plan: pt requires 3 days of flagyl treatment for C. Diff before discharge to usp facility. D/C to usp facility today oster, Samuel Evangelista MD - 10/22/2010 7:24 AM PST Ortho Progress Note Hospital Day: 10 Date: 10/22/2010 Author: SAMUEL BOWEN MD Patient: CHASTITY Osei TALLY [id number] Interval Hx: Afebrile. WBC up yesterday and [...] Elvia Putnam PA at [facility] clinic (fax #[phone]). -Dispo plan: pt requires 3 days of flagyl treatment for C. Diff before discharge to skill ed nursing facility. Possible D/C to usp facility today Samuel Montaño MD - 10/21/2010 7:16 AM PST Ortho Progress Note Hospital Day: 9 Date: 10/21/2010 Author: SAMUEL BOWEN MD Patient: CHASTITY GALDAMEZ [id number] Interval Hx: Afebrile overnight. Comfortable and without [...] Teresa or Elvia Putnam PA at [facility] clinic (fax #[phone]). -Dispo plan: pt requires 3 days of [...] kg/(m^2)FIO2 (%): 30 fraction of O2 (10/14/10 2505)O2 Delivery Device: None (room air) (10/20/10 9339) Intake/Output Summary (Last 24 hours) at 10/20/10 [...] care for this patient. LUCERO KNOX MD [address] Clinical Hospitalist Service On License Of [facility] DEPARTMENT: Hosp ([facility])- [id number] Place of Service: IP - [id number] [facility] [id number] CPT: 26494 Subsequent Visit Exp Prob Foc/Mod Complexity 25 min I spent 25 minutes mlcj-su-odno with this patient of which greater than [...] patient is discharged. Please notify [facility] [id number] re: discharge date, where patient is going (i.e. home, SNF ) and home IV provider if applicable. [facility] Department of Infectious Disease Outpatient IV Antibiotic Therapy Clinic ([facility]) Pager ID: [phone] Mail Code N625 [place] [address] [facility] teaching note: Education and training for [...] PCP . I gave the patient my [facility] business card, and let them know that our clinical rn manager, Tonja susana Keller, will be contacting [...] from antibiotics occur, we will ask the [facility] to alter the dose of antibiotics, or even change the antibiotics. I expla ined that we will communicate patient's progress and plan with PCP, surgeon, and the home in [place]. I reviewed the possible complications PICC lines [...] care. I provided the patient with the [facility] welcome letter that reiterates the above teaching. I spent 25 minutes in education and training in patient self management for IV antibiotic a nd PICC line use with greater than 50% spent on counseling and/or coordination of care. [facility] DEPARTMENT: IDC INFECT DIS CONSULT - [id number] Place of Service: Inpatient Date of Service: 10/20/2010 CSN: [id number] Suggested Level of Care: 39106- Subsequent hosp care, 25 min Javier Bunn [...] she may arrange timely follow up in [facility] clinic. While on outpatient antibiotics, weekly CBC/diff, CMP, ESR, & CRP should be checked, with results faxed to Dr. Teresa or Elvia SPENCE at [facility] clinic (fax #[phone]). -Please ensure there is a baseline CBC, CMP, ESR, and CRP prior to discharge.--ordered tod ay -Dispo plan: pt requires 3 days of flagyl treatment for C. Diff before discharge to [facility]. Plan to D/C to usp facility on [...] (pt does not want insulin coverage) (10/18/10 9612) Lab Results Component Value Date INR 1.07 [...] Per primary team. LUCERO KNOX MD Senior Product Designerradiology administrator Clinical Hospitalist Service Division [facility] Medicine Department of Medicine [facility] DEPARTMENT: Hosp ([facility])- [phone] Place of Service: - [address] Modifiers:GC Resident Involved: No CPT: 37697 Subsequent Visit Exp Prob Foc/Mod Complexity 25 min I spent 25 minutes ehvz-wh-rbjd with this patient of which greater than [...] Intake/Output Summary (Last 24 hours) at 10/19/10 0633 Last data filed at 10/19/10 0422 Gross [...] Per primary team. LUCERO KNOX MD Senior Product Designerradiology administrator Clinical Hospitalist Service Division of Hospital Medicine Department of Medicine On License Of [facility] DEPARTMENT: Hosp ([facility])- [id number] Place of Service: IP - Modifiers:GC Resident Involved: No CPT: 71217 Subsequent Visit Exp Prob Foc/Mod Complexity 25 min I spent 25 minutes vcmn-xs-zzvj with this patient of which greater than [...] well as aspirate LUCERO KNOX MD Senior Product Designerradiology administrator Clinical Hospitalist Service [facility] Medicine Department of Medicine [facility] EPIC DEPARTMENT: Hosp ([facility])- [id number] Place of Service: IP - [address]51 Modifiers:GC Resident Involved: No CPT: 93872 Subsequent Visit Detailed/High complexity 35 min I spent 40 minutes lkfa-oy-pmpg with this patient of which greater than [...] Cohen MD - 10/16/2010 9:36 PM PST [facility] ORTHOPAEDIC SURGERY POST OPERATIVE CHECK IDENTIFICATION: [...] consult. [facility] BLE xrays Jillian Farfan MD On License Of [facility] Department of Orthopaedics & Rehabilitation [address] [facility] Mail Code: OP31 [facility] [address] [email or web address] Pager: [phone] The above was formulated both independently and [...] immobile. Wearing Priscilla Hose. DAVID KNIGHT MD [facility] 6A Senior Product Designerradiology administrator Clinical Hospitalist Service On License Of [facility] DEPARTMENT: Hosp ([facility])- [id number] Place of Service: IP - [address] [facility] [id number] Modifiers:GC Resident Involved: No Service: Ortho Suggested CPT: 27871 Subsequent Visit Exp Prob Foc/Mod Complexity 25 min I spent more than 30 minutes rdsx-al-hocl with the patient of which greater than 50% was sp ent co-ordinating care acob, David Evangelista MD - 10/15/2010 7:57 AM PST CLINICAL HOSPITALIST SERVICE ([facility])-PROGRESS NOTE HOSPITAL DAY: 3 Author: DAVID KNIGHT [...] she is quite immobile. DAVID KNIGHT MD [address] Senior Product Designerradiology administrator Clinical Hospitalist Service On License Of [facility] DEPARTMENT: Hosp ([facility])- [id number] Place of Service: - [facility] [id number] Modifiers:GC Resident Involved: No Service: Primary Suggested CPT: 83277 Subsequent Visit Detailed/High complexity 35 min I spent more than 35 minutes hinf-gy-wcoq with the patient of which greater than [...] [facility] | [address] | [place], [place] | | | THERAPY | [address] | [address] | | + + + + + [...] | [facility] | [address] | [place] [address] | | | PATHOLOGY | [address] [...] + + | [facility] DEPARTMENT OF | [address] | [place] [address] | | | PATHOLOGY | [address] [...] [facility] | [address] | [place] [address] | | | PATHOLOGY | [address] [...] + + | [facility] | [address] [facility] | [place], [place] | | | THERAPY | [address] | [address] | | + + + + + [...] [facility] | [address] | [place], [place] | | | SUPRIYA POINT OF CARE | [address] | [address] | | | TESTS | | | [...] [facility] DE[facility] | [address] | [place] [address] | | | PATHOLOGY | [address] [...] DEPARTMENT OF | [address] | [place] [address] | | | PATHOLOGY | [address] [...] [facility] DE[facility] | [address] | [place] [address] | | | PATHOLOGY | [address] [...] + + + | [facility] | [address] | [place], [place] | | | THERAPY | [address] | [address] | | + + + + + [...] DEPARTMENT OF | [address] | [place] [address] | | | PATHOLOGY | [address] [...] [facility] | [address] | [place] [address] | | | PATHOLOGY | [address] [...] DEPARTMENT OF | [address] | [place] [address] | | | PATHOLOGY | [address] [...] Bunch, | | | | | | DIRECTOR INTERNAL COMMUNICATIONS | | | | | | | | | | | | | | | | | | | | | | | | | | | | | |Electronically Signed by: Angelo Bunch DIRECTOR INTERNAL COMMUNICATIONS | | | | + + + + +-------- ------+ + + | Specimen | + + | | + + + + + + + | Performing | Address | City/State/Zipcode | Phone Number | | Organization | | | | + + + + + | [facility] | [address] | [place], [place] | | | THERAPY | [address] | [address] | | + + + + + [...] + + | [facility] | [address] [facility] | [place], [place] | | | THERAPY | [facility] | [address] | | + + + + + [...] [facility] | [address] | [place], [place] | | | THERAPY | [address] | [address] | | + + + + + [...] [facility] | REGIONAL | [place] [address] | LABORATORY | | [place] [address] | | + + + + + + + + | Performing | Address | City/State/Zipcode | Phone Number | | Organization | | | | + + + + + | [facility] | [address] | [place] [address] | | | LABORATORY | | | [...] | [facility] DE[facility] OF | [address] | [place] [address] | | | PATHOLOGY | [address] [...] DEPARTMENT OF | [address] | [place] [address] | | | PATHOLOGY | [address] [...] [facility] | [address] | [place] [address] | | | PATHOLOGY | [address] [...] + + | [facility] | [address] | [place] [address] | | | LABORATORY | | | [...] DEPARTMENT OF | [address] | [place] [address] | | | PATHOLOGY | [address] [...] RESPIRATORY | Oxygen device on | | [facility] | | | CARE | standby, nasal canula. | | RESPIRATORY | | | | Electronically | | THERAPY | | | | Signed by: Cha Miles, | | | | | | DIRECTOR INTERNAL COMMUNICATIONS | | | | | | | [...] [facility] | [address] | [place], [place] | | | THERAPY | [address] | [address] | | + + + + + [...] DEPARTMENT OF | [address] | [place] [address] | | | PATHOLOGY | [address] [...] [facility] | [address] | [place] [address] | | | PATHOLOGY | [address] [...] [facility] | [address] | [place] [address] | | | PATHOLOGY | [address] [...] Long 1cm Trimmed Lot # (or Sticker): [id number] INSERTION SITE: | | | - Cephalic [...] CXR Placed [place]: [place] [id number] | | | Assisted by: na | [...] CATHETERProduct Name: BoogieConstruction: | | Single4 Fr60cm Pkis0gi TrimmedLot # (or Sticker): [id number] SITE: - | | CephalicLeftLocal anesthetic used: [...] by CXRPlaced by: Anabella Ramirez RN IVT [id number] | | by: na | |PICC CATHETER | |Product Name: Boogie | |Construction: Single | |4 Fr | |60cm Long | |1cm Trimmed | |Lot # (or Sticker): [id number] | | | |INSERTION SITE: - Cephalic [...] | |Placed by: [place] [id number] | |Assisted by: na | + + X-RAY PORTABLE CHEST 1 VIEW (10/19/2010 10:45 AM PST) + + + + + + | Component | Value | Ref Range | Performed | Pathologist | | | | | At | Signature | + + + + + + | X-RAY | STUDY: IA CHEST 1 VIEW | | | | [...] + +---------+ + + | [facility] DEPARTMENT OF | | | | [...] Guardado, | | | | | | DIRECTOR INTERNAL COMMUNICATIONS | | | | + + + + + + + + | Specimen | + + | | + + + + + + + | Performing | Address | City/State/Zipcode | Phone Number | | Organization | | | | + + + + + | [facility] | [address] | [place], [place] | | | THERAPY | [address] | [address] | | + + + + + [...] [facility] | [address] | [place] [address] | | | PATHOLOGY | [address] [...] DEPARTMENT OF | [address] | [place] [address] | | | PATHOLOGY | [address] [...] [facility] | [address] | [place] [address] | | | PATHOLOGY | [address] [...] [facility] | [address] | [place], [place] | | | THERAPY | [address] | [address] | | + + + + + [...] [facility] | [address] | [place], [place] | | | SUPRIYA POINT OF CARE | [address] | [address] | | | TESTS | | | [...] DEPARTMENT OF | [address] | [place] [address] | | | PATHOLOGY | [address] [...] [facility] | REGIS | | [place] [address] [address] [facility] [address] | REGIONAL | | [place] [address] | LAB-MICRO | + + + + + + + + | Performing | Address | City/State/Zipcode | Phone Number | | Organization | | | | + + + + + | [facility] | [address] | [place] [address] | | | LAB-MICRO | | | [...] [facility] DE[facility]MENT | [address] | [place] [address] | | | PATHOLOGY | [address] [...] (H) | 60 - 99 mg/dL | [facility] - | | | GLUCOSE, | [...] [facility] | [address] | [place], [place] | | | SUPR[facility]YA [facility] | [address] | [address] | | | TESTS | | | [...] [facility] | [address] | [place], [place] | | | JADA EPPS OF CARE | [address] | [address] | | | TESTS | | | [...] [facility] DE[facility] | [address] | [place] [address] | | | PATHOLOGY | [address] [...] [facility] | [address] | [place] [address] | | | PATHOLOGY | [address] [...] [facility] | [address] | [place] [address] | | | PATHOLOGY | [address] [...] + + | [facility] | [address] [facility] | [place], [place] | | | THERAPY | [address] | [address] | | + + + + + [...] [facility] | [address] | [place], [place] | | | THERAPY | [address] | [address] | | + + + + + [...] [facility] | [address] | [place], [place] | | | THERAPY | [address] | [address] | | + + + + + [...] + +---------+ + + | [facility] DEPARTMENT OF | | | | [...] consider | | | intensifying therapy RLB ([facility] [facility]) | | | [facility] [address] [facility] | | | [place] [address] | | + + + + + + + + | Performing | Address | City/State/Zipcode | Phone Number | | Organization | | | | + + + + + | [facility] | [address] | [place] [address] | | | LABORATORY | | | [...] [facility] | [address] | [place], [place] | | | THERAPY | [address] | [address] | | + + + + + [...] [facility] | [address] | [place], [place] | | | THERAPY | [address] | [address] | | + + + + + [...] [facility] | [address] | [place], [place] | | | SUPRIYA POINT OF CARE | [address] | [address] | | | TESTS | | | [...] [facility] | [address] | [place], [place] | | | JADA EPPS OF CARE | [address] | [address] | | | TESTS | | | [...] - [facility] | [address] | [place], [place] | | | [facility] | [facility] | [address] | | | TESTS | | | [...] [facility] | [address] | [place], [place] | | | THERAPY | [address] | [address] | | + + + + + [...] [facility] | [address] | [place] [address] | | | PATHOLOGY | [address] [...] [facility] DEPART[facility] OF | [address] | [place] [address] | | | PATHOLOGY | [address] [...] [facility] DEPARTMENT OF | [address] | [place] [address] | | | PATHOLOGY | [address] [...] DEPARTMENT OF | [address] | [place] [address] | | | PATHOLOGY | [address] [...] [facility] DE[facility] OF | [address] | [place] [id number] | | | PATHOLOGY | [address] [...] + + + | [facility] | [address] | [place] [address] | | | LAB-MICRO | | | [...] + + + | [facility] | [address] | [place] [address] | | | LAB-MICRO | | | [...] Lab) | | | | | | [facility] | | | | | | [address] | | [address] | | | | | | [place] [address] | | | | + + + + + + + + | Specimen | + + | | + + + + + + + | Performing | Address | City/State/Zipcode | Phone Number | | Organization | | | | + + + + + | [facility] | [address] | [place] [address] | | | LAB-MICRO | | | [...] + + + | [facility] | [address] | [place] [address] | | | LAB-MICRO | | | [...] Lab) | | | | | | [facility] | | | | | | [address] | | [address] | | | | | | [place] [address] | | | | + + + + + + + + | Specimen | + + | | + + + + + + + | Performing | Address | City/State/Zipcode | Phone Number | | Organization | | | | + + + + + | [facility] | [address] | [place] [address] | | | LAB-MICRO | | | [...] + + + | [facility] | [address] | [place] [address] | | | LAB-MICRO | | | [...] | | | | | | RLB ([facility]) | | | | | | [facility] | | | | | | [facility] | | | | | | [address] [employer] [facility] | | | | | | [place], | | | | | | [place] [address] | | | | + + + + + + + + | Specimen | + + | | + + + + + + + | Performing | Address | City/State/Zipcode | Phone Number | | Organization | | | | + + + + + | [facility] | [address] | [place] [address] | | | LAB-MICRO | | | [...] Lab) | | | | | | [facility] | | | | | | [address] | | | | [address] | | | | | | [place] [address] | | | | + + + + + + + + | Specimen | + + | | + + + + + + + | Performing | Address | City/State/Zipcode | Phone Number | | Organization | | | | + + + + + | [facility] | [address] | [place] [address] | | | LAB-MICRO | | | [...] + + + | [facility] | [address] | [place] [address] | | | LAB-MICRO | | | [...] + + + | [facility] | [address] | [place] [address] | | | LAB-MICRO | | | [...] Lab) | | | | | | [facility] | | | | | | [address] | | [address] | | | | | | [place] [address] | | | | + + + + + + + + | Specimen | + + | | + + + + + + + | Performing | Address | City/State/Zipcode | Phone Number | | Organization | | | | + + + + + | [facility] | [address] | [place] [address] | | | LAB-MICRO | | | [...] + + + | [facility] | [address] | [place] [address] | | | LAB-MICRO | | | [...] + + + + + | [facility] | [address] | [place] [address] | | | LAB-MICRO | | | [...] [facility] | | | | | | [facility] | | | | | | [address] | | | | | | [place], | | | | | | [place] [address] | | | | + + + + + + + + | Specimen | + + | | + + + + + + + | Performing | Address | City/State/Zipcode | Phone Number | | Organization | | | | + + + + + | [facility] | [address] | [place] [address] | | | LAB-MICRO | | | [...] + + + | [facility] | [address] | [place] [address] | | | LAB-MICRO | | | [...] + + + | [facility] | [address] | [place] [address] | | | LAB-MICRO | | | [...] Lab) | | | | | | [facility] | | | | | | [address] | | | [address] | | | | | | [place] [address] | | | | + + + + + + + + | Specimen | + + | | + + + + + + + | Performing | Address | City/State/Zipcode | Phone Number | | Organization | | | | + + + + + | [facility] | [address] | [place] [address] | | | LAB-MICRO | | | [...] + + + | [facility] | [address] | [place] [address] | | | LAB-MICRO | | | [...] + + + + + | [facility] | [address] | [place] [address] | | | LAB-MICRO | | | [...] | | | | | | [facility] | | | | | | [address] | | | | | | [address] | | | | | | [place] [address] | | | | + + + + + + + + | Specimen | + + | | + + + + + + + | Performing | Address | City/State/Zipcode | Phone Number | | Organization | | | | + + + + + | [facility] | [address] | [place] [address] | | | LAB-MICRO | | | [...] Permanente | | | | | | [address] | | | | | | [place], | | | | | | [place] [address] | | | | + + + + + + + + | Specimen | + + | | + + + + + + + | Performing | Address | City/State/Zipcode | Phone Number | | Organization | | | | + + + + + | [facility] | [address] | [place] [address] | | | LAB-MICRO | | | [...] + + + | [facility] | [address] | [place] [address] | | | LAB-MICRO | | | [...] + + + + + | [facility] | [address] | [place] [address] | | | LAB-MICRO | | | [...] Lab) | | | | | | [facility] | | | | | | [address] | | | | [address] | | | | | | [place] [address] | | | | + + + + + + + + | Specimen | + + | | + + + + + + + | Performing | Address | City/State/Zipcode | Phone Number | | Organization | | | | + + + + + | [facility] | [address] | [place] [address] | | | LAB-MICRO | | | [...] + + + | [facility] | [address] | [place] [address] | | | LAB-MICRO | | | [...] RLB | | | | | | ([address] [facility]) | | | | | | [facility] | | | | | | [address] | | | | | | [address] | | | | | | [place] [address] | | | | + + + + + + + + | Specimen | + + | | + + + + + + + | Performing | Address | City/State/Zipcode | Phone Number | | Organization | | | | + + + + + | [facility] | [address] | [place] [address] | | | LAB-MICRO | | | [...] + + + | [facility] | [address] | [place] [address] | | | LAB-MICRO | | | [...] NW | | | | | | [address] | | | | | | [place], | | | | | | [place] [address] | | | | + + + + + + + + | Specimen | + + | | + + + + + + + | Performing | Address | City/State/Zipcode | Phone Number | | Organization | | | | + + + + + | [facility] | [address] | [place] [address] | | | LAB-MICRO | | | [...] + + + | [facility] | [address] | [place] [address] | | | LAB-MICRO | | | [...] + + + | [facility] | [address] | [place] [address] | | | LAB-MICRO | | | [...] Lab) | | | | | | [facility] | | | | | | [address] | | | | [address] | | | | | | [place] [address] | | | | + + + + + + + + | Specimen | + + | | + + + + + + + | Performing | Address | City/State/Zipcode | Phone Number | | Organization | | | | + + + + + | [facility] | [address] | [place] [address] | | | LAB-MICRO | | | [...] + + + | [facility] | [address] | [place] [address] | | | LAB-MICRO | | | [...] RLB | | | | | | ([address] [facility]) | | | | | | [facility] | | | | | | [address] | | | | | | [address] | | | | | | [place] [address] | | | | + + + + + + + + | Specimen | + + | | + + + + + + + | Performing | Address | City/State/Zipcode | Phone Number | | Organization | | | | + + + + + | [facility] | [address] | [place] [address] | | | LAB-MICRO | | | [...] | + + + + + | [facility] | [address] | [place] [address] | | | LAB-MICRO | | | [...] Regis | | | | | | [facility] | | | | | | [address] | | | | | | [place], | | | | | | [place] [address] | | | | + + + + + + + + | Specimen | + + | | + + + + + + + | Performing | Address | City/State/Zipcode | Phone Number | | Organization | | | | + + + + + | [facility] | [address] | [place] [address] | | | LAB-MICRO | | | [...] + + | [facility] | [address] | [place] [address] | | | LAB-MICRO | | | [...] [facility] DEPARTMENT | [address] | [place] [address] | | | PATHOLOGY | [address] [...] [facility] | [address] | [place] [address] | | | PATHOLOGY | [address] [...] [facility] | REGIONAL | | [place] [address] | LABORATORY | | [place] [address] | | + + + + + + + + | Performing | Address | City/State/Zipcode | Phone Number | | Organization | | | | + + + + + | [facility] | [address] | [place] [address] | | | LABORATORY | | | [facility] | [facility] | | [facility] [address] | REGIONAL | | [place] [address] | LABORATORY | + + + + + + + + | Performing | Address | City/State/Zipcode | Phone Number | | Organization | | | | + + + + + | [facility] | [address] | [place] [address] | | | LABORATORY | | | [...] [facility] RESPIRATORY | [address] | [place], [place] | | | THERAPY | [address] | [address] | | + + + + + OPERATION RECORD (10/16/2010 12:00 AM PST) + + + | Narrative | Performed At | + + + | [id number] | | | [id number] CHAD | | | CHASTITY Osei [id number] Date: | | | 10/16/2010 Attending Surgeon: | | | Kalyan Arias M.D. Photo Engraver(s): | | | Raymond Valdes M.D. Preoperative [...] She presented as an ED transfer to [facility] approximately 3 days | | | [...] | multimodal DVT prophylaxis. Kalyan Arias M.D. [facility] / | | | [id number] / [id number] / [id number] / | | | | | + + + + + | Procedure Note | + + | Kalyan Arias MD - 10/17/2010 9:21 AM PST [id number] | | [id number] [facility] | | [id number] Date: 10/16/2010 Attending Surgeon: Kalyan | | Ortiz Arias M.D. Photo Engraver(s): Raymond Valdes M.D. Preoperative | | Diagnosis(es):1. [...] She presented as an ED transfer to [facility] approximately 3 | | days priorto [...] aerobic cultures and blood culture bottles per [facility] biopsy protocol. The fascia [...] | will receivemultimodal DVT prophylaxis. Kalyan Arias M.D.[facility] / [id number] / [id number] | | / [id number] / T: 10/16/2010 | |minimally symptomatic for her, and she did well with the arthroplasty | |itself. She presented as an ED transfer to [facility] approximately 3 days prior | |to [...] | | | |Kalyan Arias M.D. | |[facility] / | |[id number] / [id number] / [id number] / | | | | | | [...] [facility] | [address] | [place], [place] | | | [facility] [place] | [facility] | [address] | | | TESTS | | | [...] [facility] | [address] | [place] [address] | | | PATHOLOGY | [address] [...] + + + + | PRODUCT | [id number] | | [facility] | | | UNIT [...] + + + + | BLOOD | 13149 | | [facility] | | | PRODUCT [...] DEPARTMENT OF | [address] | [place] [address] | | | PATHOLOGY | [address] [...] + + + + | PRODUCT | [id number] | | [facility] | | | UNIT [...] + + + + | BLOOD | 48756 | | [facility] | | | PRODUCT [...] [facility] | [address] | [place] [address] | | | PATHOLOGY | [address] [...] JIMY | [address] | [place], [place] | | | [facility] [facility] [place] | [address] | [address] | | | TESTS | | | [...] JIMY | [address] | [place], [place] | | | [facility] [facility] [place] | [facility] | [address] | | | TESTS | | | | + + + + + CAPILLARY BLOOD GLUCOSE, POC (10/14/2010 11:02 PM PST) + +---------+ + + + | Component | Value | Ref Range | Performed | Pathologist | | | | | At | Signature | + +---------+ + + + | BLOOD | 142 (H) | 60 - 99 mg/dL | [facility] - | | | GLUCOSE, | [...] [facility]N | [address] | [place], [place] | | | SUPRIYA POINT OF CARE | [address] | [address] | | | TESTS | | | [...] + +---------+ + + | [facility] DEPARTMENT OF | | | | [...] [facility] RESPIRATORY | [address] | [place], [place] | | | THERAPY | [address] | [address] | | + + + + + [...] view image for the detailed interpretation from [employer] results. | CARDIOLOGY | + + + + + + + + | Performing | Address | City/State/Zipcode | Phone Number | | Organization | | | | + + + + + | [facility] | [address] | [place], [place] | | | CARDIOLOGY | [address] | [address] | | + + + + + [...] + + | [facility] | [address] | [place] [address] | | | LAB-MICRO | | | [...] DEPARTMENT OF | [address] | [place] [address] | | | PATHOLOGY | [address] [...] + + | [facility] DEPARTMENT OF | [address] | [place] [address] | | | PATHOLOGY | [address] [...] [facility] | [address] | [place] [address] | | | PATHOLOGY | [address] [...] Lab) | | | | | | [facility] | | | | | | [address] | | | | | [address] | | | | | | [place] [address] | | | | + + + + + + + + | Specimen | + + | | + + + + + + + | Performing | Address | City/State/Zipcode | Phone Number | | Organization | | | | + + + + + | [facility] | [address] | [place] [address] | | | LAB-MICRO | | | [...] DEPARTMENT OF | [address] | [place] [address] | | | PATHOLOGY | [address] [...] DEPARTMENT OF | [address] | [place] [address] | | | PATHOLOGY | [address] [...] [facility] | [address] | [place] [address] | | | PATHOLOGY | [address] [...] + + + | [facility] | [address] | [place] [address] | | | LAB-MICRO | | | [...] + + + | [facility] | [address] | [place] [address] | | | LAB-MICRO | | | [...] + +---------+ + + | [facility] DEPARTMENT OF | | | | [...] DEPARTMENT OF | [address] | [place] [address] | | | PATHOLOGY | [address] [...] DEPARTMENT OF | [address] | [place] [address] | | | PATHOLOGY | [address] [...] DEPARTMENT OF | [address] | [place] [address] | | | PATHOLOGY | [address] [...] + + | [facility] | [address] | [place] [address] | | | LAB-MICRO | | | [...] [facility] | [address] | [place] [address] | | | PATHOLOGY | [address] [...] [facility] DEPARTMENT OF | [address] | [place] [address] | | | PATHOLOGY | [address] [...] DEPARTMENT OF | [address] | [place] [address] | | | PATHOLOGY | [address] [...] [facility] | [address] | [place] [address] | | | PATHOLOGY | [address] [...] [facility] | REGIONAL | | [place] [address] [address] [facility] | LABORATORY | | [place] [address] | | + + + + + + + + | Performing | Address | City/State/Zipcode | Phone Number | | Organization | | | | + + + + + | [facility] | [address] | [place] [address] | | | LABORATORY | | | [...] + +---------+ + + | [facility] DEPARTMENT OF | | | | [...] | | | (after last modification) on [facility] | | | | | | [...]
--- OUTSIDE RECORDS SUMMARY | ~2020-04-04 | XMS | Encounter Summary ---
Demographics + + + | Address | [address] | | | [place] [address] | + + + | Home Phone [...] Providers + +------+ + | Care Academic Intern Name | Role | Phone | [...] as of this encounter Progress Notes Interface, Compensation Administrator In - 04/28/2005 7:30 PM PDTClinic [...] followup is scheduled today. Lloyd Garcia M.D. Care Specialist, Orthopedics and Rehabilitation / [id number] / [id number] / [id number] / [id number] cc: Ninfa Guillen M.D. [address] [place] [place] [address]Rlwcbexyucgenu signed by Interface, Compensation Administrator In at 04/28/2005 7:3 0 PM PDTdocumented in this encounter Plan of Treatment Not on filedocumented as of this encounter Visit Diagnoses Not on filedocumented in this encounter"
--- OUTSIDE RECORDS SUMMARY | ~2020-04-04 | XMS | Encounter Summary ---
Demographics + + + | Address | [address] | | | [place] [address] | + + + | Home Phone [...] Providers + +------+ + | Care Director Funeral Name | Role | Phone | + [...] | | [address] | [place], | | | | | Mailcode: PV430 | [place] [address] | | | | | [facility] | | | | | | [place] | | | | | | [address] | | | | | | [phone] | | | +--------+ + + + [...]
--- OUTSIDE RECORDS SUMMARY | ~2020-04-04 | XMS | Encounter Summary ---
Demographics + + + | Address | [address] | | | [place] [address] | + + + | Home Phone [...] Providers + +------+ + | Care Security Guard Supervisor Name | Role | Phone | [...] + + + + | 10/24/ | Property Technician | Infectious | Carolina Putnam | | | 2010 | | Diseases at [facility] | K, [facility] [address] | | | | | [address] | [place] | | | | | Loop Physician's | [place], [place] | | | | | [address], 3rd floor | [address] | | | | | [place], [place] | [phone] | | | | | [address] | | | | | | [phone] | | | +--------+ + + + [...]
--- OUTSIDE RECORDS SUMMARY | ~2020-04-04 | XMS | Encounter Summary ---
Demographics + + + | Address | [address] | | | [place] [address] | + + + | Home Phone [...] +------+ + | Care Parks And Recreation Worker Name | Role | Phone | + +------+ + PCP | Unavailable | + +------+ + Encounter Details +--------+ + + + + | Date | Type | Department | Care Team | Description | +--------+ + + + + | 12/23/ | Director Hardware | Orthopaedics at | Gino Baker MD | Osteoarthritis of | | 2006 | | [facility] [address] | [address] | Hip (Primary Dx) | | | | [address] | [place] | | | | | Mailcode: PV430 | [place] [address] | | | | | [facility] | | | | | | [place], [place] | | | | | | [address] | | | | | | [phone] | | | +--------+ + + + [...]
--- OUTSIDE RECORDS SUMMARY | ~2020-04-04 | XMS | Encounter Summary ---
Demographics + + + | Address | [address] | | | [place] [address] | + + + | Home Phone [...] Team Providers + +------+ + | Care Ad Operations Intern Name | Role | Phone | + +------+ + | Marta Jenkins CREATIVE SPECIALIST | PCP | | + +------+ + Encounter Details +--------+ + + + + | Date | Type | Department | Care Team | Description | +--------+ + + + + | 06/11/ | Ancillary | Registration [address] | Lloyd Garcia MD | | | 2005 | Registratio | [address] [facility] | | | | | n | Jamie Mailcode: [id number] | | | | | | [place], [place] | | | | | | [address] | | | | | | [phone] | | | +--------+ + + + [...]
--- OUTSIDE RECORDS SUMMARY | ~2020-04-04 | XMS | Encounter Summary ---
Demographics + + + | Address | [address] | | | [place] [address] | + + + | Home Phone [...] Team Providers + +------+ + | Care Internet Specialist Name | Role | Phone | [...] | | | | | | | [place], | | | | | | | [place] [address] | +--------+--------+ + + + + Encounter Details +--------+---------+ + + + | Date | Type | Department | Care Team | Description | +--------+---------+ + + + | 09/08/ | Office | Radiation Oncology | Kevin Arenas MD | Heterotopic Tissue | | 2007 | Visit | at [facility] [address] | [address] | (Primary Dx) | | | | [address] | [place], [place] | | | | | [address], 4th floor | [address] | | | | | [place], [place] | [phone] | | | | | [address] | | | | | | [phone] | | | +--------+---------+ + + + [...] documented as of this encounter Progress Notes Keivn Arenas Md - 09/08/2008 5:23 PM PSTI performed a history and physical examination of the patient and discussed her management with the resident. I reviewed the resident s note and agree with the documented findings and plan of care. I told her the goals of radi ation therapy and the potential side effects. We will treatment her today. KEVIN ARENAS MD [facility] RADIATION MEDIC[facility] [place] [address] r Miller - 09/08/2008 2:21 PM PST [...] DAVID, bone graft and HO excision for [facility] masood osteoarthritis, HO formation, and non-union of [...]
--- OUTSIDE RECORDS SUMMARY | ~2020-04-04 | XMS | Encounter Summary ---
Demographics + + + | Address | [address] | | | [place] [address] | + + + | Home Phone [...] Team Providers + +------+ + | Care Marker Hand Name | Role | Phone | [...] | | | with BMI of | [place], | [place], | | | | | 50.0-59.9, | [place] [address] | [place] [address] | | | | | adult (HCC) | Phone: | Phone: | | | | | Procedures | [phone] | [phone] | | | | | MELVI | Fax: | Fax: | | | | | Nutrition | [phone] | [phone] | | | | | Counseling | [...] | Opinion | | Unilateral | Marta, FIELD PRODUCER | [address] | | | | | primary | [address] | | | | | osteoarthrit | | [place], [place] | | | | | is, left hip | [place], | [address] | | | | | Pain in | [place] [address] | Phone: | | | | | left hip | Phone: | [phone] | | | | | Unilateral | [phone] | Fax: | | | | | primary | Fax: | [phone] | | | | | osteoarthrit | [phone] | | | | | | is, left | | | | | | | hip, Pain in | | | | | | | left hip | | | +--------+ + + + + + Encounter Details +--------+---------+ + + + | Date | Type | Department | Care Team | Description | +--------+---------+ + + + | 07/08/ | Office | [facility] | Jasper Medrano, | Primary | | 2019 | Visit | [place] [address] | [address] | osteoarthritis of | | | | [address] [place], [place] | [place], [place] | left hip (Primary | | | | [address] | [address] | Dx); Left hip pain; | | | | [phone] | | H/O total hip | | [...] ; Surg andrés: Rustam Schmid MD; Location: [facility] [place] Social History Tobacco Use [...] loosening or subsidence. However this is a htrkp-wf-ymiuy prosthesis. Did not seem to be any significant ostial lysis around either of the components. There is evidence in the femur of previously removed hardware. 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 The left hip shows severe gzly-up-hnpz arthritis without any evidence of residual joint space. There is prominent sclerosis and marginal osteophyte formation and subchondral cyst formation. The visualized lumbar spine show significant degenerative changes. Jasper Medrano MD Assessment and Plan ICD-10-CM ICD-9-CM 1. Primary osteoarthritis of left hip M16.12 715.15 2. Left hip pain M25.552 719.45 XR Hip Bilateral 2 Views CBC with Differential Chromium level [place] Prealbumin Sedimentation Rate C-Reactive Protein Nutrition Referral [...] [place] | | | | | | [address] | | | | | | | [...] REFERENCE | | | | performed at [facility];[address] | | LAB | | | | [place] | | [facility] | | | | [address];[place] [address] | | LABORATORY | | + + + + + + + + | Specimen | + + | Blood | + + + + + + + | Performing | Address | City/State/Zipcode | Phone Number | | Organization | | | | + + + + + | REFERENCE LAB | [address] [place], [place] [address] | [place] | [phone] | | [facility] | [address] | [address] | | | LABORATORY | | | | + + + + + | REFERENCE LAB | [address] [place] [address] | [place] | | | [facility] | [address] | [address] | | | LABORATORY | | | [...] [facility] | | | | [address];[place] [address] | | LABORATORY | | + + + + + + + + | Specimen | + + | Blood | + + + + + + + | Performing | Address | City/State/Zipcode | Phone Number | | Organization | | | | + + + + + | REFERENCE LAB | [address] [place] [address] | [place] | [phone] | | [facility] | [address] | [address] | | | LABORATORY | | | | + + + + + | REFERENCE LAB | [address] [facility] [address] [address] | [place] | | | [facility] | [address] | [address] | | | LABORATORY | | | [...] | | [facility] | | | | Blvd;[place] [address] | | LABORATORY | | + + + + + + + + | Specimen | + + | Blood | + + + + + + + | Performing | Address | City/State/Zipcode | Phone Number | | Organization | | | | + + + + + | REFERENCE LAB | [address] [place] [address] | [place] | [phone] | | [facility] | [address] | [address] | | | LABORATORY | | | | + + + + + | REFERENCE LAB | [address] [place] [address] | [place] | | | [facility] | [address] | [address] | | | LABORATORY | | | | + + + + + [place] (07/29/2019 10:58 AM PDT) + + + + + + | Component | Value | Ref Range | Performed | Pathologist | | | | | At | Signature | + + + + + + | [place], | None DetectedComment: | 0.0 - 0.9 ug/L | REFERENCE | | | Ser/Plas | This test was developed | | LAB | | | | and its performance | | [facility] | | | | characteristicsdetermine | | LABORATORY | | | | d by [facility]. It has not | | | | [...] | | | | | | [place] [address] | | | | + + + + + + + + | Specimen | + + | Blood | + + + + + + + | Performing | Address | City/State/Zipcode | Phone Number | | Organization | | | | + + + + + | REFERENCE LAB | [address] [place] [address] | [place], [place] | [phone] | | [facility] | [address] | [address] | | | LABORATORY | | | | + + + + + | REFERENCE LAB | [address] [place] [address] | [place] | | | [facility] | [address] | [address] | | | LABORATORY | | | [...] [place] | | | | | | [address] | | | | + + + + + + + + | Specimen | + + | Blood | + + + + + + + | Performing | Address | City/State/Zipcode | Phone Number | | Organization | | | | + + + + + | REFERENCE LAB | [address] [place] [address] | [place] | [phone] | | [facility] | [address] | [address] | | | LABORATORY | | | | + + + + + | REFERENCE LAB | [address] [place] [address] | [place] | | | [facility] | [address] | [address] | | | LABORATORY | | | [...] | | | Absolute | performed at [facility];[address] | [address] | LAB | | | | [place] | | [facility] | | | | [address];[place] [address] | | LABORATORY | | + + + + + + + + | Specimen | + + | Blood | + + + + + + + | Performing | Address | City/State/Zipcode | Phone Number | | Organization | | | | + + + + + | REFERENCE LAB | [address] [place] [address] | [place], [place] | [phone] | | [facility] | [address] | [address] | | | LABORATORY | | | | + + + + + | REFERENCE LAB | [address] [place] [address] | [place], [place] | | | [facility] | [address] | [address] | | | LABORATORY | | | [...] | | subsidence. However this is a zfezj-ju-bridd prosthesis. Did not | | | seem to be any significant ostial lysis around either of the | | | components. There is evidence in the femur of previously removed | | | hardware. 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 The left hip shows severe aeii-ci-deyt | | | arthritis without any evidence [...] + | Performing | Address | City/State/[facility] | Phone Number | | Organization [...]
--- OUTSIDE RECORDS SUMMARY | ~2020-04-04 | XMS | Encounter Summary ---
Demographics + + + | Address | [address] | | | [place] [address] | + + + | Home Phone [...] Team Providers + +------+ + | Care Applied Behavior Science Specialist Name | Role | Phone | [...] as of this encounter Discharge Summaries Interface, Cold Food Packer In 02/27/2006 3:05 AM PDTAdmission Date: 09/13/2003 [...] readmitted. DISPOSITION: She was discharged to a residential facility. MEDICATIONS: 1. Docusate #80. 2. Oxycodone #80. 3. Indomethacin 25 mg, p.o. t.i.d. for six weeks. FOLLOWUP: She will see Dr. Garcia in two weeks. She is to continue wearing her abduction brace. If she has any changes in her wound she is to notify our clinic as soon as possible. Benson Boone M.D. Lloyd Garcia M.D. RT:[phone] [id number] signed by Interface, Cold Food Packer In at 02/27/2006 3:05 AM [facility]ed in this encounter Plan of Treatment Not on filedocumented as of this encounter Visit Diagnoses Not on filedocumented in this encounter"
--- OUTSIDE RECORDS SUMMARY | ~2020-04-04 | XMS | Encounter Summary ---
Demographics + + + | Address | [address] | | | [place] [address] | + + + | Home Phone | | + + + | Preferred Language | Unknown | + + + | Marital Status | | + + + | Sabianism Affiliation | 1076 | + + + | Race | Unknown | + + + | Ethnic Group | Unknown | + + + Author + + + | Author | [facility] | | | and [place] | + + + | Organization | [facility] | | | [...] Providers + +------+ + | Care Barrel Coater Name | Role | Phone | [...] + + | 11/25/ | Surgery | [facility] | Rustam Schmid MD | RIGHT URETEROSCOPY | | 2016 | | MED CTR OR INTRA OP | [address] | W/ LASER LITHOTRIPSY | | | | [address] | [place] | RIGHT URETERAL | | | | [place] | [address] | STENT PLACEMENT. | | | | [address] | [phone] | | | | | [phone] | | | +--------+---------+ + + + [...] upon return of cul ture results from [facility]. Stent may be removed by her oil well service operator helper on Saturday 5 or SaturdayDecember 03. AttachmentsThe following attachments cannot be sent through Care Everywhere.DIET, DISCHARGE INSTRUCTIONS FOR EATING A LOW-SALT (VENEZUELAN)KIDNEY STONES,PREVENTING (VENEZUELAN)documented in this encounter Medications at Time of [...] at 0545 via ground ambul ance from [facility] in [place]. C/o rt back/flank pain. Dry heaves noted. [...] Schmid MD - 11/25/2016 6:52 AM PST [facility] --[facility] ADMIT HISTORY AND PHYSICAL Primary Care Physician: [...] is a 56 y.o. female, transferred from [place] emergency room with s ymptomatic right ureterolithiasis. [...] Signed by: Rustam Schmid MD, 11/25/2016 7:05 [facility] documented in this enc ounter Nursing [...] Rustam Schmid MD - 2016 11[facility] Pt. Name/Age/: Shelby Galdamez 56 y.o. 1960 Med. Record Number: [id number] Date of Operation/Procedure: 11/25/2016 Preoperative Diagnosis: right ureteral stones [N20.1] Post-Op Diagnosis Codes: * Right ureteral stone [N20.1] Postoperative Diagnosis: Same Surgeon: Rustam Schmid MD Laborer Hide House(s): None Anesthesia Provider(s): Anesthesiologist: Helio Barkley MD Academic Services Professional: Rain Edouard Anesthesia Type: General Procedure(s): RIGHT URETEROSCOPIC LASER LITHOTRIPSY PLACEMENT RIGHT URETERAL STENT PLACEMENT Operative Indications: Shelby Galdamez is a 56 y.o. year old female transferred from [facility] several hours ago, with CT demonstrating a [...] the usual sterile fashion . A 23 Lebanese cystoscope was introduced to the bladder with [...] were removed. A 25 cm x 14 Lebanese ureteral access sheath was threaded over the [...] back over the safety wire. A 6 Lebanese by 26 cm diana ble-J stent was [...] by: Rustam Schmid MD, 11/25/2016 11:01 [facility] documented in this enc ounter Plan [...] [place] | | | | | | [address] | | | | | | | [...] MD | | | | | | ([id number]) on 11/25/2016 | | | | | [...]
--- OUTSIDE RECORDS SUMMARY | ~2020-04-04 | XMS | Encounter Summary ---
Demographics + + + | Address | [address] | | | [place] [address] | + + + | Home Phone [...] Providers + +------+ + | Care Customer Success Specialist Name | Role | Phone | + +------+ + | Travis Mcginnis MD | PCP | | + +------+ + Encounter Details +--------+ + + + + | Date | Type | Department | Care Team | Description | +--------+ + + + + | 07/01/ | Abstract | Orthopaedics | Note, Orthopedics | | | 2018 | | [facility] | | | | | for Health and | | | | | | Healing [address] | | | | | | [place] Mailcode: | | | | | | [facility] | | | | | | Health and Healing, | | | | | | Building | | | | | | Floor [place], [place] | | | | | | [address] | | | | | | [phone] | | | +--------+ + + + [...] anyone for this yet? [facility] in [place]. ED 06/24 [facility] in [facility]. Has had sepsis and MRSA and need to lose 35 lbs per this office. [facility] [phone] 07/03 via phone MRI May 2018 CT [facility]'s impax X-Ray May 2018 XR [facility]' impax CT no Ultrasound no Other [...] will you be traveling for this appointment? [place] Note: If patient traveling greater than 1 hour, consider coordinating any additi onal testing or appointments. Medical Review needed? yes Reminders: ? Ask patient if they d like to sign up for [employer] ? Don t forget to pull in CareEveryWhere Additional Comments: documented in this encounte r Plan of Treatment Not on filedocumented as of this encounter Visit Diagnoses Not on filedocumented in this encounter
--- OUTSIDE RECORDS SUMMARY | ~2020-04-04 | XMS | Encounter Summary ---
Demographics + + + | Address | [address] | | | [place] [address] | + + + | Home Phone [...] Team Providers + +------+ + | Care Dermatologist And Dermatopathologist Name | Role | Phone | + [...] | Transcriptions | + + | Interface, Truck Driver Teamster In - 09/19/2005 9:05 PM PST Date: | | 10/08/2003Attending Surgeon: Marguerite Araujo M.D.Senior Partner(s): | | Stas Menjivar M.D.Preoperative Diagnosis(es):Right hip [...] recoveryroom in stable condition.Marguerite Araujo, | | [facility] / [id number] / [id number] / [id number] / T: 10/08/2003 | |a clean granulating [...] | | | |JEMarcus / SALEEM | |[id number] / [id number] / [id number] / | | | | | + + OPERATION RECORD (10/08/2003) + + | Transcriptions | + + | Interface, Truck Driver Teamster In - 09/19/2005 9:05 PM PST Date: | | 10/08/2003Attending Surgeon: Lloyd Garcia M.D.Senior Partner(s): | | Benson Boone M.D. Stas Menjivar, [...] | from the OR table to the [facility] with the hipsflexed and abduction pillow in place and | | brought from the Operating Room tothe Recovery Room in stable and satisfactory condition | | having tolerated theprocedure well without apparent complication. All counts were | | reportedcorrect prior to leaving the Operating Room. There were no apparenthypotensive | | episodes or other anesthetic difficulties.Lloyd Garcia M.D.Floral Artist, | | Orthopedics and Rehabilitation / [id number] / [id number] / [id number] / T: | | 10/08/2003 | |tube [...] | | | |Lloyd Garcia M.D. | |Floral Artist, Orthopedics and Rehabilitation | | | | / | |[id number] / [id number] / [id number] / | | | | | + + OPERATION RECORD (10/05/2003) + + | Transcriptions | + + | Interface, Truck Driver Teamster In - 09/19/2005 9:05 PM PST Date: | | 10/05/2003Attending Surgeon: Lloyd Garcia M.D.Senior Partner(s): | | Benson Boone M.D.Preoperative Diagnosis(es):Right hip [...] | case.Benson Boone M.D.Lloyd Garcia M.D.RT / [id number] / [id number] / [id number] / [id number]: | | 10/05/2003T: 10/05/2003 | |flap for [...] | | | |RT / HS | |[id number] / [id number] / [id number] / 86613 | | | | | + + documented in this encounter Visit Diagnoses Not on filedocumented in this encounter"
--- OUTSIDE RECORDS SUMMARY | ~2020-04-04 | XMS | Encounter Summary ---
Demographics + + + | Address | [address] | | | [place] [address] | + + + | Home Phone [...] Providers + +------+ + | Care Public Bath Attendant Name | Role | Phone | [...] | | [address] | [place], | | | | | Mailcode: PV430 | [place] [address] | | | | | [facility] | | | | | | [place] | | | | | | [address] | | | | | | [phone] | | | +--------+ + + + [...]
--- OUTSIDE RECORDS SUMMARY | ~2020-04-04 | XMS | Encounter Summary ---
Demographics + + + | Address | [address] | | | [place] [address] | + + + | Home Phone | | + + + | Preferred Language | Unknown | + + + | Marital Status | | + + + | Latter Day Affiliation | 1076 | + + + [...] + +------+ + | Care Natural Gas Basis Trader Name | Role | Phone | + +------+ + PCP | Unavailable | + +------+ + Encounter Details +--------+ + + + + | Date | Type | Department | Care Team | Description | +--------+ + + + + | 05/30/ | Hospital | [facility] | Augie Valdivia MD | | | 2011 | Encounter | MED CTR MP INTRA OP | [address], [place] | | | | | [address] | [address] | | | | | [place] | [address] | | | | | [address] | | | | | | [phone] | | | +--------+ + + + [...] [place] | | | | | | [address] | | | | | | | | +--------+---------+ + + + documented as of this encounter Visit Diagnoses Not on filedocumented in this encounter"
--- OUTSIDE RECORDS SUMMARY | ~2020-04-04 | XMS | Encounter Summary ---
Demographics + + + | Address | [address] | | | [place] [address] | + + + | Home Phone [...] Providers + +------+ + | Care Art Class Model Name | Role | Phone | + [...] as of this encounter Progress Notes Interface, Perch Machine Inspector In - 09/08/2006 1:11 AM PSTCLINIC DATE: [...] evaluation. Lloyd Garcia MD / [id number] / [id number] / [id number] / cc: Matthew Garcia MD [address] [place], [place] [address]Duclvocwarfjen signed by Interface, Perch Machine Inspector In at 09/08/2006 1:11 AM PSTdocumented in this encounter Plan of Treatment Not on filedocumented as of this encounter Visit Diagnoses Not on filedocumented in this encounter"
--- OUTSIDE RECORDS SUMMARY | ~2020-04-04 | XMS | Encounter Summary ---
Demographics + + + | Address | [address] | | | [place] [address] | + + + | Home Phone [...] Providers + +------+ + | Care Rn Supplemental Name | Role | Phone | + [...] | | | | Mailcode: [address] | [place], [place] | | | | | [facility] | [address] | | | | | [place], [place] | [phone] | | | | | [address] | | | | | | [phone] | | | +--------+ + + + [...]
--- OUTSIDE RECORDS SUMMARY | ~2020-04-04 | XMS | Encounter Summary ---
Demographics + + + | Address | [address] | | | [place] [address] | + + + | Home Phone [...] Team Providers + +------+ + | Care Perinatal Specialist Name | Role | Phone | [...] | [facility] | MEGAN Reddy [address] | | | | | [address] | [address] | | | | | Loop Physician's | [place], [place] | | | | | [address], 3rd floor | [address] | | | | | [place], [place] | [phone] | | | | | [address] | | | | | | [phone] | | | +--------+ + + + [...]
--- OUTSIDE RECORDS SUMMARY | ~2020-04-04 | XMS | Encounter Summary ---
Demographics + + + | Address | [address] | | | [place] [address] | + + + | Home Phone [...] Team Providers + +------+ + | Care Starch Dumper Name | Role | Phone | + [...] of this encounter Progress Notes Interface, Supervisor Printing And Stamping In - 04/28/2005 6:17 PM PDTClinic Date: [...] presence of her friend and my physician laundry assistant and resident here in the Orthopedic [...] as soon as possible. Lloyd Garcia M.D. Wire Straightening Machine Operator of Orthopedics and Rehabilitation / [id number] / [id number] / [id number] / [id number] Tdocumented in this encounter Plan of Treatment Not on filedocumented as of this encounter Visit Diagnoses Not on filedocumented in this encounter
--- OUTSIDE RECORDS SUMMARY | ~2020-04-04 | XMS | Encounter Summary ---
Demographics + + + | Address | [address] | | | [place] [address] | + + + | Home Phone [...] Team Providers + +------+ + | Care Ct Technologist Name | Role | Phone | [...] | | [address] | [address] Ay[place], | | | | | Mailcode: [address] | [place] [address] | | | | | [facility] | | | | | | [place] | | | | | | [address] | | | | | | [phone] | | | +--------+ + + + [...] | | + +---------+ + + | [facility] DEPARTMENT OF | | | | | RADIOLOGY | | | | + +---------+ + + documented in this encounter Visit Diagnoses Not on filedocumented in this encounter"
--- OUTSIDE RECORDS SUMMARY | ~2020-04-04 | XMS | Encounter Summary ---
Demographics + + + | Address | [address] | | | [place] [address] | + + + | Home Phone [...] Providers + +------+ + | Care Electric Shaver Mechanic Name | Role | Phone | [...] as of this encounter Progress Notes Interface, Court Officer In - 07/14/2006 1:10 AM PDTCLINIC DATE: [...] improve her hip pain. Lloyd Garcia M.D. [place], Orthopedics and Rehabilitation / [id number] / [id number] / [id number] / 30145 cc: Helio iXe M.D. [place], [place] [id number] signed by Interface, Court Officer In at 07/14/2006 1:1 0 AM PDTdocumented in this encounter Plan of Treatment Not on filedocumented as of this encounter Visit Diagnoses Not on filedocumented in this encounter"
--- OUTSIDE RECORDS SUMMARY | ~2020-04-04 | XMS | Encounter Summary ---
Demographics + + + | Address | [address] | | | [place] [address] | + + + | Home Phone [...] Providers + +------+ + | Care Project Coach Name | Role | Phone | [...] | [facility] | MEGAN Reddy [address] | | | | | [address] | [address] | | | | | Loop Physician's | [place], [place] | | | | | [address], 3rd floor | [address] | | | | | [place], [place] | [phone] | | | | | [address] | | | | | | [phone] | | | +--------+ + + + [...] CELL | 7.8 | K/cu mm | [facility] | | | COUNT | | | MEDICAL | | | | | | CENTER - | | | | | | [place] | | + +-------+ + + + | RED CELL | 4.86 | M/cu mm | [facility] | | | COUNT | | | MEDICAL | | | | | | CENTER - | | | | | | [place] | | + +-------+ + + + | HEMOGLOBIN | 14.1 | 12.1999 - 15 | [facility] | | | | | g/dL | MEDICAL | | | | | | CENTER - | | | | | | [place] | | + +-------+ + + + | HEMATOCRIT | 41.2 | % | [facility] | | | | | | MEDICAL | | | | | | [facility] - | | | | | | [place] | | + +-------+ + + + | MCV | 85 | fL | [facility] | | | | | | MEDICAL | | | | | | [facility]ENTER - | | | | | | [place] | | + +-------+ + + + | MCH | 29 | pg | [facility] | | | | | | MEDICAL | | | | | | CENTER - | | | | | | [place] | | + +-------+ + + + | MCHC | 34.2 | g/dL | [facility] | | | | | | MEDICAL | | | | | | [facility] - | | | | | | [place] | | + +-------+ + + + | PLATELET | 367 | K/cu mm | [facility] | | | COUNT | | | MEDICAL | | | | | | CENTER - | | | | | | [place] | | + +-------+ + + + | NEUTROPHIL | 59.2 | % | [facility] | | | % | | | MEDICAL | | | | | | [facility]ENTER - | | | | | | [place] | | + +-------+ + + + | LYMPHOCYTE | 32.5 | % | [facility] | | | % | | | MEDICAL | | | | | | [facility]ENTER - | | | | | | [place] | | + +-------+ + + + | MONOCYTE % | 6.1 | % | [facility] | | | | | | MEDICAL | | | | | | [facility] - | | | | | | [place] | | + +-------+ + + + | EOS % | 1.5 | % | [facility] | | | | | | MEDICAL | | | | | | [facility]ENTER - | | | | | | [place] | | + +-------+ + + + | BASO % | 0.7 | % | [facility] | | | | | | MEDICAL | | | | | | [facility]ENTER - | | | | | | [place] | | + +-------+ + + + | RDW | 14.5 | % | [facility] | | | | | | MEDICAL | | | | | | [facility] - | | | | | | [place] | | + +-------+ + + + | MPV | | fL | [facility] | | | | | | MEDICAL | | | | | | [facility] - | | | | | | [place] | | + +-------+ + + + | NEUTROPHIL | 4.6 | K/cu mm | [facility] | | | # | | | MEDICAL | | | | | | [facility] - | | | | | | [place] | | + +-------+ + + + | LYMPHOCYTE | 2.5 | K/cu mm | [facility] | | | # | | | MEDICAL | | | | | | [facility] - | | | | | | [place] | | + +-------+ + + + | MONOCYTE # | 0.5 | K/cu mm | [facility] | | | | | | MEDICAL | | | | | | [facility] - | | | | | | [place] | | + +-------+ + + + | EOS # | 0.1 | K/cu mm | [facility] | | | | | | MEDICAL | | | | | | [facility] - | | | | | | [place] | | + +-------+ + + + | BASO # | 0.1 | | [facility] | | | | | | MEDICAL | | | | | | [facility]ENTER - | | | | | | [place] | | + +-------+ + + + | PHOSPHORUS, | 3.9 | mg/dL | [facility] | | | PLASMA | | | [...] | + + + + + | [facility] | [address] | [place] [address] | | | C[facility] - [place] | | | | + + + + + COMPLETE METABOLIC SET (NA,K,CL,CO2,BUN,CREAT,GLUC,CA,AST,ALT,BILI TOTAL,ALK PHOS,ALB,PROT TOTAL) (03/01/2011 9:55 AM PDT) + +-------+ + + + | Component | Value | Ref Range | Performed | Pathologist | | | | | At | Signature | + +-------+ + + + | GLUCOSE, | 106 | 65 - 110 mg/dL | [facility] | | | PLASMA | | | MEDICAL | | | (LAB) | | | CENTER - | | | | | | [place] | | + +-------+ + + + | BUN, PLASMA | 10 | mg/dL | [facility] | | | (LAB) | | | MEDICAL | | | | | | CENTER - | | | | | | [place] | | + +-------+ + + + | CREATININE | 0.7 | mg/dL | [facility] | | | PLASMA | | | MEDICAL | | | (LAB) | | | CENTER - | | | | | | [place] | | + +-------+ + + + | TOTAL | 7.4 | g/dL | [facility] | | | PROTEIN, | | | MEDICAL | | | PLASMA | | | CENTER - | | | (LAB) | | | [place] | | + +-------+ + + + | ALBUMIN, | 3.8 | g/dL | [facility] | | | PLASMA | | | MEDICAL | | | (LAB) | | | CENTER - | | | | | | [place] | | + +-------+ + + + | CALCIUM, | 9.2 | mg/dL | [facility] | | | PLASMA | | | MEDICAL | | | (LAB) | | | CENTER - | | | | | | [place] | | + +-------+ + + + | BILIRUBIN | 0.3 | Transcutaneous | [facility] | | | TOTAL | | Bilirubinometer | MEDICAL | | | | | | CENTER - | | | | | | [place] | | + +-------+ + + + | ALK PHOS | 72 | U/L | [facility] | | | | | | MEDICAL | | | | | | CENTER - | | | | | | [place] | | + +-------+ + + + | AST(SGOT) | 10 | U/L | [facility] | | | | | | MEDICAL | | | | | | CENTER - | | | | | | [place] | | + +-------+ + + + | SODIUM, | 141 | mmol/L | [facility] | | | PLASMA | | | MEDICAL | | | (LAB) | | | CENTER - | | | | | | [place] | | + +-------+ + + + | POTASSIUM, | 4.4 | mmol/L | [facility] | | | PLASMA | | | MEDICAL | | | (LAB) | | | CENTER - | | | | | | [place] | | + +-------+ + + + | CHLORIDE, | 107 | mmol/L | [facility] | | | PLASMA | | | MEDICAL | | | (LAB) | | | CENTER - | | | | | | [place] | | + +-------+ + + + | TOTAL CO2, | 30 | mmol/L | [facility] | | | PLASMA | | | MEDICAL | | | (LAB) | | | CENTER - | | | | | | [place] | | + +-------+ + + + | ALT (SGPT) | 14 | U/L | [facility] | | | | | | MEDICAL | | | | | | CENTER - | | | | | | [place] | | + +-------+ + + + | SEDIMENTATI | 29 | mm/hr | [facility] | | | ON RATE | | [...] | + + + + + | [facility] | [address] | [place] [address] | | | [facility] [place] | | | | + + + + + documented in this encounter Visit Diagnoses Not on filedocumented in this encounter"
--- OUTSIDE RECORDS SUMMARY | ~2020-04-04 | XMS | Encounter Summary ---
Demographics + + + | Address | [address] | | | [place] [address] | + + + | Home Phone [...] Providers + +------+ + | Care Accounting Machine Mechanic Name | Role | Phone | [...] Pavilion | | | | | | [place], [place] | | | | | | [address] | | | | | | [phone] | | | +--------+ + + + [...] | | | | | | obtained. Blood Bank Business Manager AP and | | | | | [...] FINDINGS: | | | | | | Blood Bank Business Manager images of the | | | | [...] | | | | | | obtained. Blood Bank Business Manager AP and | | | | | [...] FINDINGS: | | | | | | Blood Bank Business Manager images of the | | | | [...]
--- OUTSIDE RECORDS SUMMARY | ~2020-04-04 | XMS | Encounter Summary ---
Demographics + + + | Address | [address] | | | [place] [address] | + + + | Home Phone [...] Providers + +------+ + | Care Vacuum Plastic Forming Machine Operator Name | Role | [...] as of this encounter Progress Notes Interface, Peer Educator In - 07/14/2006 1:10 AM PDTCLINIC DATE: [...] in the system. Dariana Champion M.A. / [id number] / [id number] / [id number] / Watt Peer Educator In - 07/10/2006 1:00 AM PDTCLINIC DATE: [...] insurance at and spoke with Timbo. This chemical sales representative stated that this prescription had been [...] over the phone. Dariana Champion M.A. / [id number] / [id number] / [id number] / Tdocumented in this encounter Plan of Treatment Not on filedocumented as of this encounter Visit Diagnoses Not on filedocumented in this encounter"
--- OUTSIDE RECORDS SUMMARY | ~2020-04-04 | XMS | Encounter Summary ---
Demographics + + + | Address | [address] | | | [place] [address] | + + + | Home Phone [...] Team Providers + +------+ + | Care Shoemaker Apprentice Name | Role | Phone | [...] | | | | due to | [place] | [place] | | | | | unspecified | [address] | [address] | | | | | device, | Phone: | Phone: | | | | | implant, and | [phone] | [phone] | | | | | graft | Fax: | Fax: | | | | | | [phone] | [phone] | +--------+--------+ + + + + Encounter [...] | | | | [address] | [place] [address] | internal joint | | | | Physician's | [phone] | prosthesis (HCC) | | | | Pavilion, 4th floor | | (Primary Dx) | | | | [place], [place] | | | | | | [address] | | | | | | [phone] | | | +--------+---------+ + + + [...] CLINIC FOLLOW UP Referrring Physician: [facility] Orthopedics [address] [place] [address] Primary Care Physician: [address] [address] Ms. Galdamez presents to Infectious Diseases Clinic [...] procedure. Indications : Staphylococcus Aureus Joint Infection [place]-3 Fatty Acids-Vitamin E (FISH OIL) 1,000 mg [...] above discussion. ALBINO TERESA MD INFECTIOUS DISEASES [address] [place] [address] Mailcode: L608 [address] [address] documented in this e ncounter [...]
--- OUTSIDE RECORDS SUMMARY | ~2020-04-04 | XMS | Encounter Summary ---
Demographics + + + | Address | [address] | | | [place] [address] | + + + | Home Phone [...] Team Providers + +------+ + | Care Veterinary Technician Name | Role | Phone [...] | | | [address] | [address] [place], | | | | | Mailcode: [address] | [place] [address] | | | | | [facility] | | | | | | [place], [place] | | | | | | [address] | | | | | | [phone] | | | +--------+ + + + [...]
--- OUTSIDE RECORDS SUMMARY | ~2020-04-04 | XMS | Encounter Summary ---
Demographics + + + | Address | [address] | | | [place] [address] | + + + | Home Phone [...] Providers + +------+ + | Care Gas Scrubber Operator Name | Role | Phone [...] as of this encounter Progress Notes Interface, Game Advisor In - 2006 1:06 AM PDTCLINIC DATE: 06/24/2003 ORTHOPEDIC CLINIC HISTORY: This is a 43-year-old obese female followed for right hip degenerative joint disease, returns to clinic today having had no relief after her last 2 fluoroscopically guided cortisone injections on October 05, 2002, and January 26, 2003. The x-rays at that time revealed sykmjjwo-po-oukqnrmp degenerative joint disease. I confirmed that the [...] She does continue to drive in from [place] for her care here. She continues to [...] times per day. PHYSICAL EXAMINATION GENERAL: A izudoblc-sb-hryrsjqn obese short statured woman who ambulates with [...] authorization has been obtained. Lloyd Garcia M.D. Theatrical Rigger of Orthopedics and Rehabilitation / [id number] / [id number] / [id number] / cc: Ninfa Guillen M.D. [address] [place] [address] [id number] signed by Interface, Game Advisor In at 2006 1:06 AM [facility] umented in this encounter Plan of Treatment Not on filedocumented as of this encounter Visit Diagnoses Not on filedocumented in this encounter"
--- OUTSIDE RECORDS SUMMARY | ~2020-04-04 | XMS | Encounter Summary ---
Demographics + + + | Address | [address] | | | [place] [address] | + + + | Home Phone [...] Providers + +------+ + | Care Machine Cloth Examiner Name | Role | Phone | + +------+ + PCP | Unavailable | + +------+ + Encounter Details +--------+ + + + + | Date | Type | Department | Care Team | Description | +--------+ + + + + | 11/22/ | Results | | Other, Faculty | | | 2003 | Only | | [phone] | | +--------+ + + + + [...] + + + | [facility] | [address] | [place] [address] | | | LAB-MICRO | | | [...] + + + | [facility] | [address] | [place] [address] | | | LAB-MICRO | | | [...] | + + + + + | [facility] | [address] | [place] [address] | | | LAB-MICRO | | | [...] + + | [facility] | [address] | [place] [address] | | | LAB-MICRO | | | [...] + + | [facility] | [address] | [place] [address] | | | LAB-MICRO | | | [...] + + | [facility] | [address] | [place] [address] | | | LAB-MICRO | | | [...] + + + | [facility] | [address] | [place] [address] | | | LAB-MICRO | | | | + + + + + documented in this encounter Visit Diagnoses Not on filedocumented in this encounter"
--- OUTSIDE RECORDS SUMMARY | ~2020-04-04 | XMS | Encounter Summary ---
Demographics + + + | Address | [address] | | | [place] [address] | + + + | Home Phone [...] Team Providers + +------+ + | Care Campaign Director Name | Role | Phone | [...]
--- OUTSIDE RECORDS SUMMARY | ~2020-04-04 | XMS | Encounter Summary ---
Demographics + + + | Address | [address] | | | [place] [address] | + + + | Home Phone [...] Providers + +------+ + | Care Deputy Insurance Commissioner Name | Role | Phone | [...] Pavilion | | | | | | [place], [place] | | | | | | [address] | | | | | | [phone] | | | +--------+ + + + [...] [facility] DEPARTMENT | [address] [facility] | [place] [address] | | | PATHOLOGY | [address] | | | + + + + + | [facility] | [address] [place] [address] | [place] [address] | | | PATHOLOGY | [address] [...] DEPARTMENT OF | [address] | [place] [address] | | | PATHOLOGY | [address] | | | + + + + + | [facility] | [address] | [place] [address] | | | PATHOLOGY | [address] | | | + + + + + documented in this encounter Visit Diagnoses Not on filedocumented in this encounter"
--- OUTSIDE RECORDS SUMMARY | ~2020-04-04 | XMS | Encounter Summary ---
Demographics + + + | Address | [address] | | | [place] [address] | + + + | Home Phone [...] Team Providers + +------+ + | Care Marble Rubber Name | Role | Phone | [...] | | [address] | [place], | | | | | Mailcode: [id number] | [place] [address] | | | | | [facility] | | | | | | [place], [place] | | | | | | [address] | | | | | | [phone] | | | +--------+ + + + [...]
--- OUTSIDE RECORDS SUMMARY | ~2020-04-04 | XMS | Encounter Summary ---
Demographics + + + | Address | [address] | | | [place] [address] | + + + | Home Phone [...] Team Providers + +------+ + | Care Leasing Consultant Name | Role | Phone | [...]
--- OUTSIDE RECORDS SUMMARY | ~2020-04-04 | XMS | Encounter Summary ---
Demographics + + + | Address | [address] | | | [place] [address] | + + + | Home Phone [...] Providers + +------+ + | Care Commercial Leasing Manager Name | Role | Phone | [...] as of this encounter Progress Notes Interface, Autocad Operator In - 04/28/2005 8:48 PM PDTClinic Date: [...] well but presented to the ER in [place] approximately a week and half ago with [...] up with her primary care doctor in [place] and return to clinic and see me on an as-needed basis only. Lloyd Garcia M.D. Surgical Tech, Orthopedics and Rehabilitation / [id number] / [id number] / [id number] / [id number] cc: Dr. Pearce [facility] [address] [place] [address] Rinaldi M.D. [address] [place] [address], [place] [id number] signed by Interface, Autocad Operator In at 04/28/2005 8:4 8 PM PDTdocumented in this encounter Plan of Treatment Not on filedocumented as of this encounter Visit Diagnoses Not on filedocumented in this encounter"
--- OUTSIDE RECORDS SUMMARY | ~2020-04-04 | XMS | Encounter Summary ---
Demographics + + + | Address | [address] | | | [place] [address] | + + + | Home Phone [...] Providers + +------+ + | Care Warehouse Traffic Supervisor Name | Role | Phone | [...] | | | | Mailcode: [id number] | [place], [place] | | | | | [facility] | [address] | | | | | [place], [place] | [phone] | | | | | [address] | | | | | | [phone] | | | +--------+ + + + [...]
--- OUTSIDE RECORDS SUMMARY | ~2020-04-04 | XMS | Encounter Summary ---
Demographics + + + | Address | [address] | | | [place] [address] | + + + | Home Phone [...] Providers + +------+ + | Care Surgical Consultant Name | Role | Phone | [...] + + | 10/02/ | Telephone | [facility] | Augie Valdivia MD | Appointment | | 2012 | | GASTROENTEROLOGY | [address] [facility] | (procedure scheduled | | | | [address] [facility] | [address] [place], [place] | Oct.24 insurance | | | | [address] [place], [place] | [address] | denies coverage for | | | | [address] | | endoscopy) | | | | [phone] | | | +--------+ + + + [...] this encounter Miscellaneous Notes Telephone Encounter - Pealr Dia RN - 10/03/2012 12:31 PM PSTSpoke [...] RODRIGUEZ | | | | | | [id number] | | | | | | | | +--------+---------+ + + + documented as of this encounter Visit Diagnoses Not on filedocumented in this encounter
--- OUTSIDE RECORDS SUMMARY | ~2020-04-04 | XMS | Encounter Summary ---
Demographics + + + | Address | [address] | | | [place] [address] | + + + | Home Phone [...] Providers + +------+ + | Care Insole And Outsole Preparer Name | Role | Phone | [...] Pavilion | | | | | | [place], [place] | | | | | | [address] | | | | | | [phone] | | | +--------+ + + + [...] | | | | | FINDINGS: The director trading | | | | | | radiographs [...] | | | | | FINDINGS: The director trading | | | | | | radiographs [...]
--- OUTSIDE RECORDS SUMMARY | ~2020-04-04 | XMS | Encounter Summary ---
Demographics + + + | Address | [address] | | | [place] [address] | + + + | Home Phone [...] +------+ + | Care Professor Of Communication Name | Role | Phone | + [...] as of this encounter Progress Notes Interface, Geometrician In - 04/28/2005 7:30 PM PDTClinic Date: [...] signs of recurrent infection. Lloyd Garcia M.D. Records Administrator Orthopedics and Rehabilitation / [id number] / [id number] / [id number] / [id number] cc: Ninfa Guillen M.D. [address] [place], [place] [id number] signed by Interface, Geometrician In at 04/28/2005 7:3 0 PM PDTdocumented in this encounter Plan of Treatment Not on filedocumented as of this encounter Visit Diagnoses Not on filedocumented in this encounter"
--- OUTSIDE RECORDS SUMMARY | ~2020-04-04 | XMS | Encounter Summary ---
Demographics + + + | Address | [address] | | | [place] [address] | + + + | Home Phone [...] Providers + +------+ + | Care Color Strainer Name | Role | Phone | + [...] Irwin | | | | | | [facility] and | | | | | | Counseling [address] | | | | | | [address] [place], | | | | | | [place] [address] | | | | | | [phone] | | | | | | | [...] | | | | | | 09/25/2003 [id number] | | | | | | hours [...] + + + | [facility] | [address] | [place] [address] | | | LABORATORY | | | [...] | + + + + + | [facility] DEPARTMENT | [address] [facility] | [place] [address] | | | PATHOLOGY | [address] | | | + + + + + | [place] DEPARTMENT OF | [address] [facility] | [place] [address] | | | PATHOLOGY | [address] [...] + | [facility] | [address] [facility] | [place] [address] | | | PATHOLOGY | [address] | | | + + + + + | [facility] | [address] [facility] | [place] [address] | | | PATHOLOGY | [address] [...] [facility] | [address] | [place] [address] | | | PATHOLOGY | [address] | | | + + + + + | [facility] | [address] | [place] [address] | | | PATHOLOGY | [address] | | | + + + + + documented in this encounter Visit Diagnoses Not on filedocumented in this encounter"
--- OUTSIDE RECORDS SUMMARY | ~2020-04-04 | XMS | Encounter Summary ---
Demographics + + + | Address | [address] | | | [place] [address] | + + + | Home Phone [...] Providers + +------+ + | Care Merchandise Shopper Name | Role | Phone | + [...] | Head and Neck | MEGAN Reddy [address] [facility] | | | | | Surgery Services at | [facility] | | | | | [address] | [place], [place] | | | | | [address] | [address] | | | | | Physician's | [phone] | | | | | Pavilion, [facility] floor | | | | | | [place], [place] | | | | | | [address] | | | | | | [phone] | | | +--------+ + + + [...]
--- OUTSIDE RECORDS SUMMARY | ~2020-04-04 | XMS | Encounter Summary ---
Demographics + + + | Address | [address] | | | [place] [address] | + + + | Home Phone [...] Providers + +------+ + | Care Retort Loader Name | Role | Phone | [...] as of this encounter Progress Notes Interface, Environmental Services Associate In - 04/28/2005 10:57 PM PDTClinic Date: [...] resolved, and she attributes to eating a Tunisian pork and vegetable lap dish called Kinesense. Physical Examination General: Shelby is in good [...] drain is in place. Lloyd Garcia M.D. Cleaner And Preparer-Orthopedics and Rehabilitation / SALEEM [id number] / [id number] / [id number] / cc: Everett Guillen M.D. [address] [place] [id number] signed by Interface, Environmental Services Associate In at 04/28/2005 10:57 PM PDTdocumented in this encounter Plan of Treatment Not on filedocumented as of this encounter Visit Diagnoses Not on filedocumented in this encounter"
--- OUTSIDE RECORDS SUMMARY | ~2020-04-04 | XMS | Encounter Summary ---
Demographics + + + | Address | [address] | | | [place] [address] | + + + | Home Phone [...] Team Providers + +------+ + | Care Directional Bore Operator Name | Role | Phone | [...] of this encounter Progress Notes Interface, Traffic Observer In - 04/28/2005 10:57 PM PDTClinic Date: [...] resolved, and she attributes to eating a Tanzanian pork and vegetable lap dish called Twelixir. Physical Examination General: [place] is in good [...] drain is in place. Lloyd Garcia M.D. Passenger Screener-Orthopedics and Rehabilitation / SALEEM [id number] / [id number] / [id number] / cc: Everett Guillen M.D. [address] [place] [id number] signed by Interface, Traffic Observer In at 04/28/2005 10:57 PM PDTdocumented in this encounter Plan of Treatment Not on filedocumented as of this encounter Visit Diagnoses Not on filedocumented in this encounter"
--- OUTSIDE RECORDS SUMMARY | ~2020-04-04 | XMS | Encounter Summary ---
Demographics + + + | Address | [address] | | | [place] [address] | + + + | Home Phone [...] Team Providers + +------+ + | Care Comic Writer Name | Role | Phone | [...] | | | | Mailcode: [id number] | [place], [place] | | | | | [facility] | [address] | | | | | [place], [place] | [phone] | | | | | [address] | | | | | | [phone] | | | +--------+ + + + [...]
--- OUTSIDE RECORDS SUMMARY | ~2020-04-04 | XMS | Encounter Summary ---
Demographics + + + | Address | [address] | | | [place] [address] | + + + | Home Phone [...] Providers + +------+ + | Care Development And Housing Director Name | Role | Phone [...] Procedures | Pankaj Bergman | Roxann Ayala [facility] | | | | | CT INJ | Roxann Ayala [facility], | | | | | SACROILIAC | [place], [place] | 10th Floor | | | | | JOINT | [address] | [place], [place] | | | | | W/NEEDLE | Phone: | [address] | | | | | PLCMT | [phone] | Phone: | | | | | | Fax: | [phone] | | | | | | [phone] | Fax: | | | | | | | [phone] | +--------+--------+ + + + + Encounter [...] | | | | | Roxann Ayala [facility] | | | | | | [address] | | | | | | [place], [place] | | | | | | [address] | | | | | | [phone] | | | +--------+ + + + [...] | | | | | | the high school learning support teacher. | | | | | | Floor Plan Adjuster imaging was | | | | | [...]
--- OUTSIDE RECORDS SUMMARY | ~2020-04-04 | XMS | Encounter Summary ---
Demographics + + + | Address | [address] | | | [place] [address] | + + + | Home Phone [...] Team Providers + +------+ + | Care Sheltered Workshop Worker Name | Role | Phone | [...] | | | | Mailcode: [id number] | [place], [place] | | | | | [facility] | [address] | | | | | [place], [place] | [phone] | | | | | [address] | | | | | | [phone] | | | +--------+ + + + [...]
--- OUTSIDE RECORDS SUMMARY | ~2020-04-04 | XMS | Encounter Summary ---
Demographics + + + | Address | [address] | | | [place] [address] | + + + | Home Phone [...] Providers + +------+ + | Care Software Sales Name | Role | Phone | + +------+ + | Marta Jenkins TRANSPORTATION MUSEUM HELPER | PCP | | + +------+ [...] | | | | Mailcode: [id number] | [place], [place] | | | | | [facility] | [address] | | | | | [place], [place] | [phone] | | | | | [address] | | | | | | [phone] | | | +--------+ + + + [...]
--- OUTSIDE RECORDS SUMMARY | ~2020-04-04 | XMS | Encounter Summary ---
Demographics + + + | Address | [address] | | | [place] [address] | + + + | Home Phone [...] Providers + +------+ + | Care Jig Mill Operator Name | Role | Phone [...] as of this encounter Progress Notes Interface, Museum Curator In - 07/22/2006 3:18 AM PDTCLINIC DATE: [...] of the right knee. Lloyd Garcia M.D. theatre arts professor, Orthopedics and Rehabilitation. BIRGIT / SALEEM [id number] / [id number] / [id number] / [id number] cc: JILLIAN TODD MD [address] [facility] [id number] signed by Interface, Museum Curator In at 07/22/2006 3:1 8 AM PDTdocumented in this encounter Plan of Treatment Not on filedocumented as of this encounter Visit Diagnoses Not on filedocumented in this encounter"
--- OUTSIDE RECORDS SUMMARY | ~2020-04-04 | XMS | Encounter Summary ---
Demographics + + + | Address | [address] | | | [place] [address] | + + + | Home Phone [...] Providers + +------+ + | Care Regulatory Specialist Name | Role | Phone | [...] | | | | | or | [address] | Pavilion | | | | | localized, | | [place], [place] | | | | | pelvic | | [address] | | | | | region and | | Phone: | | | | | thigh | | [phone] | | | | | Intervertebr | | Fax: | | | | | al lumbar | | [phone] | | | | | disc | [...] Pavilion | | | | | | [place], [place] | | | | | | [address] | | | | | | [phone] | | | +--------+---------+ + + + [...] tenderness. Severe gluteus medius limp. Most recent [facility] Laboratory Studies: Normal C-reactive protein at 0.5 (02/10/04), normal [facility] te cell count at 9.4 & [...] this done around the time of the [place]-up so she can enjoy shopp ing. [...] hip arthroplasty if needed. Lloyd Garcia M.D. Slitter And Rewinder Machine Operator, Orthopedics and Rehabilitation documented in this encount [...]
--- OUTSIDE RECORDS SUMMARY | ~2020-04-04 | XMS | Encounter Summary ---
Demographics + + + | Address | [address] | | | [place] [address] | + + + | Home Phone [...] Team Providers + +------+ + | Care Anesthesiologist And Critical Care Name | Role | Phone | + +------+ + | Travis Mcginnis MD | PCP | | + +------+ + Encounter Details +--------+ + + + + | Date | Type | Department | Care Team | Description | +--------+ + + + + | 10/14/ | Results | LAB REFERRED TESTS | Other, Faculty | | | 2010 | Only | [address] [facility] | [phone] | | | | | [address] | | | | | | [place] | | | | | | [address] | | | +--------+ + + + [...] + + | [facility] | [address] | [place], [place] | | | CARDIOLOGY | [address] | [address] | | + + + + + documented in this encounter Visit Diagnoses Not on filedocumented in this encounter"
--- OUTSIDE RECORDS SUMMARY | ~2020-04-04 | XMS | Encounter Summary ---
Demographics + + + | Address | [address] | | | [place] [address] | + + + | Home Phone [...] Team Providers + +------+ + | Care Dog Barber Name | Role | Phone | + +------+ + PCP | Unavailable | + +------+ + Encounter Details +--------+ + + + + | Date | Type | Department | Care Team | Description | +--------+ + + + + | 03/19/ | Results | Registration [address] | Sophy, Faculty | | | 2007 | Only | [address] | [phone] | | | | | [address] Mailcode: [id number] | | | | | | [place], [place] | | | | | | [address] | | | | | | [phone] | | | +--------+ + + + [...]
--- OUTSIDE RECORDS SUMMARY | ~2020-04-04 | XMS | Encounter Summary ---
Demographics + + + | Address | [address] | | | [place] [address] | + + + | Home Phone [...] Team Providers + +------+ + | Care Self Sealing Fuel Tank Builder Name | Role | Phone | [...] | | | | | | | [address] | | | | | | | [address] | | | | | | | Jamie 2SE/UHN85 | | | | | | | Rose | | | | | | | Terrence | | | | | | | (MNP/OLD [facility]) | | | | | | | [place], | | | | | | | [place] [address] | +--------+--------+ + + + + Encounter Details +--------+ + + + + | Date | Type | Department | Care Team | Description | +--------+ + + + + | 09/06/ | Hospital | [facility] [address] | Tyrone Colby MD | | | 2007 - | Encounter | [address] [facility] [address] | [address] [facility] | | | | | 2SE/UHN85 | [facility] [address] | | | 09/09/ | | Rose Ocampo | [place], [place] | | | 2007 | | (MNP/OLD [facility]) | [address] | | | | | [place], [place] | [phone] | | | | | [address] | | | +--------+ + + + [...] #3. Radiation oncology team was consulted and [facility] administered a single radiation treatment as [...] continued PT/OT at [facility] 1. You may remove dressing 3 days after your surgery and OK for shower thereafter as long a s the incision is not draining. Sponge bath until dressings off. No soaking in tub, pool, et c. If there is drainage after [address] new guaze on the incision and call the Orthopaedi c clinic [phone]. 2. Continue to take Aspirin 325mg twice a day for a total of 6 weeks. Stop if you have stom ach upset or blood in your stool. Let your surgeon know if you have had GI bleeding in the p ast after taking Aspirin or NSAID's. 3. DO NOT let anyone start you on Antibiotics if they suspect your wound is infected. Call highway construction inspector [facility] Orthopaedist first. Call [phone] for daytime and weekdays, or [phone] for nights and weekends. If you have [...] Dr. Colby in 2 wks. Please call [phone] now to confirm appointment. Follow Up Tests: (Tests at [facility] must be entered into [employer]) none Condition On Discharge: Good Discharge Medications: [...] incision and call the Orthopaedi c clinic [phone]. 2. Continue to take Aspirin 325mg twice a day for a total of 6 weeks. Stop if you have stom ach upset or blood in your stool. Let your surgeon know if you have had GI bleeding in the p ast after taking Aspirin or NSAID's. 3. DO NOT let anyone start you on Antibiotics if they suspect your wound is infected. Call highway construction inspector [facility] Orthopaedist first. Call [phone] for daytime and weekdays, or [phone] for nights and weekends. If you have [...] Dr. Colby in 2 wks. Please call [phone] now to confirm appointment. Follow Up Tests: (Tests at [facility] must be entered into [facility]) none Condition On Discharge: Good [...] Faculty - 8 12:00 AM Shelby Thompson [id number] [facility] REC NUMBER: [id number] NAME : Shelby Galdamez DATE : 1960 Admit Date: 09/06/2008 Discharge Date: 09/09/2008 PHYSICIAN'S REQUEST FOR HOME HEALTH SERVICES Relevant History: Location to receive services if other than home: Allergies: Height: Weight: Ordering Physician: [address] [facility] [address], [place] [address] Physician to follow for ongoing home health orders: PCP Name: PCP Phone: Discharge Need(s): 1. Penitentiary Facility Discharge Vendor: [facility] Discharge Suggested First Visit/Delivery Date: Discharge Service/Equipment: 2. Transportation Discharge Vendor: Medicaid - [place] Discharge Suggested First Visit/Delivery Date: Discharge Service/Equipment: stretcher 12:30pm Director Critical Care: Tr Rosales - 09/08/2008 2:22 PM PSTRADIATION [...] as able . Tasha Harding OTR//L Pager [phone] Tyrone Haney - 2007 7:55 AM PST [...] and plan of care. TYRONE COLBY MD [facility] [address] 2se/uhn85 [place] [address] Taz Rand - 08/30 5:50 AM PST [...] | [address] | [place] [address] | | | PATHOLOGY | [address] | | | + + + + + | [facility] DEPARTMENT OF | [address] | [place] [address] | | | PATHOLOGY | [address] [...] [facility] DEPARTMENT OF | [address] | [place] [address] | | | PATHOLOGY | [address] | | | + + + + + | [facility] DEPARTMENT OF | [address] | [place] [address] | | | PATHOLOGY | [address] [...] | [facility] | [address] [facility] | [place] [address] | | | PATHOLOGY | [address] | | | + + + + + | [facility] | [address] [facility] | [place] [address] | | | PATHOLOGY | [address] [...] | [facility] DEPARTMENT OF | [address] [facility] | [place] [address] | | | PATHOLOGY | [address] | | | + + + + + | [facility] DEPARTMENT OF | [address] [facility] | [place] [address] | | | PATHOLOGY | [address] [...] [facility] DEPARTMENT OF | [address] | [place] [address] | | | PATHOLOGY | [address] | | | + + + + + | [facility] DEPARTMENT OF | [address] | [place] [address] | | | PATHOLOGY | [address] [...] | | THERAPY | | | | COMPONENT TECHNICIAN | | | | + + + [...] [facility] | [address] | [place], [place] | | | THERAPY | [address] | [address] | | + + + + + | [facility] | [address] | [place], [place] | | | THERAPY | [address] | [address] | | + + + + + [...] Lynn, | | | | | | COMPONENT TECHNICIAN | | | | + + + [...] [facility] | [address] | [place], [place] | | | THERAPY | [address] | [address] | | + + + + + | [facility] RES[facility] | [address] | [place], [place] | | | THERAPY | [address] | [address] | | + + + + + [...] | [facility] DEPARTMENT OF | [address] [facility] | [place] [address] | | | PATHOLOGY | [address] | | | + + + + + | [facility] DEPARTMENT OF | [address] [facility] | [place] [address] | | | PATHOLOGY | [address] [...] | [facility] | [address] [facility] | [place] [address] | | | PATHOLOGY | [address] | | | + + + + + | [facility] | [address] [facility] | [place] [address] | | | PATHOLOGY | [address] [...] HOSPITAL OF | [address] | [place] [address] | | | PATHOLOGY | [address] | | | + + + + + | [facility] | [address] | [place] [address] | | | PATHOLOGY | [address] [...] | [facility] | [address] [facility] | [place] [address] | | | PATHOLOGY | [address] | | | + + + + + | [facility] | [address] [facility] | [place] [address] | | | PATHOLOGY | [address] [...] Recio, | | | | | | COMPONENT TECHNICIAN | | | | + + + [...] [facility] | [address] | [place], [place] | | | THERAPY | [facility] | [address] | | + + + + + | [facility] | [address] | [place], [place] | | | THERAPY | [facility] | [address] | | + + + + + [...] | THERAPY | | | | Hemal, COMPONENT TECHNICIAN | | | | + + + [...] [facility] | [address] | [place], [place] | | | THERAPY | [address] | [address] | | + + + + + | [facility] RES[facility] | [address] | [place], [place] | | | THERAPY | [address] [facility] | [address] | | + + + + + [...] Recio, | | | | | | COMPONENT TECHNICIAN | | | | + + + [...] + + | [facility] | [address] [facility] | [place], [place] | | | THERAPY | [facility] | [address] | | + + + + + | [facility] | [address] [facility] | [place], [place] | | | THERAPY | [facility] | [address] | | + + + + + [...] [facility] | [address] | [place], [place] | | | THERAPY | [address] | [address] | | + + + + + | [facility] RES[facility] | [address] | [place], [place] | | | THERAPY | [address] [facility] | [address] | | + + + + + [...] Performed At | + + + | [id number] | | | [id number] TALLY | | | [place] [id number] Date: | | | 09/06/2008 Attending Surgeon: | | | Tyrone Colby M.D. Personal Computer Network Engineer(s): | | | Maximiliano Chisholm M.D. | [...] | | decubitus position with a hip children's author. The right hind quadrant and | | [...] Tyrone Alcantar | | | Sierra Colby. [facility] [id number] / [id number] / [id number] / | | | | | + + + + + | Procedure Note | + + | Tyrone Colby MD - 09/06/2008 12:00 AM [facility] [id number] | | [id number] CHAD Osei | | [id number] Date: 09/06/2008 Attending Surgeon: Tyrone | | Ortiz Colby M.D. Personal Computer Network Engineer(s): Maximiliano Chisholm M.D. | | Linh Wiggins [...] decubitus position with a hip | | children's author. Theright hind quadrant and lower extremity were [...] is | | warranted. Tyrone Colby M.D. [facility] / [id number] / [id number] / [id number] /D: | | 09/06/2008T: 09/06/2008 | |anteriorly [...] Colby M.D. | | | | | |[facility] / | |[id number] / [id number] / [id number] / | | | | | | [...] + +---------+ +---+--------+---+ | morphine 5 mg/mL FIELD OPERATIONS SUPERVISOR infusion | New Bag | 09/07/20 | [...] | | | | | 1955, Until [facility] 09/09/08 at 1941, | | | [...]
--- OUTSIDE RECORDS SUMMARY | ~2020-04-04 | XMS | Encounter Summary ---
Demographics + + + | Address | [address] | | | [place] [address] | + + + | Home Phone [...] Providers + +------+ + | Care Body And Fender Worker Name | Role | Phone | [...] of this encounter Progress Notes Interface, Dialysis Nurse In - 09/08/2006 1:11 AM PSTCLINIC DATE: [...] evaluation. Lloyd Garcia MD / [id number] / [id number] / [id number] / cc: Matthew Garcia MD [address] [place], [place] [id number] signed by Interface, Dialysis Nurse In at 09/08/2006 1:11 AM PSTdocumented in this encounter Plan of Treatment Not on filedocumented as of this encounter Visit Diagnoses Not on filedocumented in this encounter"
--- OUTSIDE RECORDS SUMMARY | ~2020-04-04 | XMS | Encounter Summary ---
Demographics + + + | Address | [address] | | | [place] [address] | + + + | Home Phone [...] Team Providers + +------+ + | Care Optometrist Owner Name | Role | Phone | + [...] | Head and Neck | MEGAN Reddy [address] [facility] | | | | | Surgery Services at | [facility] | | | | | [address] | [place], [place] | | | | | [address] | [address] | | | | | Physician's | [phone] | | | | | Pavilion, [address] medical [address] floor | | | | | | [place], [place] | | | | | | [address] | | | | | | [phone] | | | +--------+ + + + [...]
--- OUTSIDE RECORDS SUMMARY | ~2020-04-04 | XMS | Encounter Summary ---
Demographics + + + | Address | [address] | | | [place] [address] | + + + | Home Phone [...] Team Providers + +------+ + | Care Shotblaster Name | Role | Phone | + [...] as of this encounter Progress Notes Interface, Blockmason In - 02/27/2006 3:05 AM PDTClinic Date: [...] M.D. Lloyd Garcia M.D. RT / HS [id number] / [id number] / [id number] / [id number] Watt, Blockmason In - 02/27/2006 3:05 AM PDTClinic Date: [...] is any deep infection. Lloyd Garcia M.D. Inhalation Therapy Teacher Orthopedics and Rehabilitation Jackelyn A [phone] cc: Ninfa Barrientos MD [address] [place] [id number] signed by Interface, Blockmason In at 6 3:05 AM PDTdocumented in this encounter Plan of Treatment Not on filedocumented as of this encounter Visit Diagnoses Not on filedocumented in this encounter"
--- OUTSIDE RECORDS SUMMARY | ~2020-04-04 | XMS | Encounter Summary ---
Demographics + + + | Address | [address] | | | [place] [address] | + + + | Home Phone [...] Providers + +------+ + | Care Poultry Farmer Name | Role | Phone | [...] [id number] | [facility] [place] | | | | | [facility] | [address] | | | | | [place], [place] | [phone] | | | | | [address] | | | | | | [phone] | | | +--------+ + + + [...]
--- OUTSIDE RECORDS SUMMARY | ~2020-04-04 | XMS | Encounter Summary ---
Demographics + + + | Address | [address] | | | [place] [address] | + + + | Home Phone [...] Providers + +------+ + | Care Labor Crew Supervisor Name | Role | Phone [...] floor | | | | | | [place], [place] | | | | | | [address] | | | | | | [phone] | | | +--------+------+ + + + [...] + + | [facility] DEPARTMENT OF | [facility] | [place] [address] | | | PATHOLOGY | [address] | | | + + + + + | [facility] DEPARTMENT OF | [address] [facility] | [place] [address] | | | PATHOLOGY | [address] [...] DEPARTMENT OF | [address] | [place] [address] | | | PATHOLOGY | [address] | | | + + + + + | [facility] DEPARTMENT OF | [address] | [place] [address] | | | PATHOLOGY | [address] [...] + + + + + | [facility] DEPARTMENT | [address] [facility] | [place] [address] | | | PATHOLOGY | [address] | | | + + + + + | [facility] DEPARTMENT | [address] [facility] | [place] [address] | | | PATHOLOGY | [address] [...] + + + + + | [facility] DEPARTMENT OF | [address] | [place] [address] | | | PATHOLOGY | [address] | | | + + + + + | [facility] DEPARTMENT OF | [address] | [place] [address] | | | PATHOLOGY | [address] [...] Lab) [facility] | | | [place] [address] | | | [place] [address] | | + + + + + + + + | Performing | Address | City/State/Zipcode | Phone Number | | Organization | | | | + + + + + | [facility] | [address] | [place] [address] | | | LABORATORY | | | | + + + + + documented in this encounter Visit Diagnoses + + | Diagnosis | + + | Hip pain Pain in joint, pelvic region and thigh | + + | Hip replacement Hip joint replacement by other means | + + documented in this encounter"
--- OUTSIDE RECORDS SUMMARY | ~2020-04-04 | XMS | Encounter Summary ---
Demographics + + + | Address | [address] | | | [place] [address] | + + + | Home Phone [...] Team Providers + +------+ + | Care Nonprofit Fundraiser Name | Role | Phone | [...] as of this encounter Progress Notes Interface, Sole Scraper In - 04/28/2005 10:57 PM PDTClinic Date: [...] not need a refill. Lloyd Garcia M.D. Industrial Tech Instructor of Orthopedics and Rehabilitation / [id number] / [id number] / [id number] / [id number] cc: Leonel Floyd M.D. [address] [place], [place] [id number] signed by Interface, Sole Scraper In at 04/28/2005 10:57 PM PDTdocumented in this encounter Plan of Treatment Not on filedocumented as of this encounter Visit Diagnoses Not on filedocumented in this encounter"
--- OUTSIDE RECORDS SUMMARY | ~2020-04-04 | XMS | Encounter Summary ---
Demographics + + + | Address | [address] | | | [place] [address] | + + + | Home Phone [...] Team Providers + +------+ + | Care Prop Maker Name | Role | Phone | + +------+ + PCP | Unavailable | + +------+ + Encounter Details +--------+ + + + + | Date | Type | Department | Care Team | Description | +--------+ + + + + | 08/12/ | Results | Orthopaedics at | Lloyd Garcai MD | | | 2002 | Only | [address] | | | | | | [address] | | | | | | Mailcode: [id number] | | | | | | [facility] | | | | | | [place], [place] | | | | | | [address] | | | | | | [phone] | | | +--------+ + + + [...] + + | [facility] DEPARTMENT | [address] [facility] | [place] [address] | | | PATHOLOGY | [address] | | | + + + + + | [facility] | [address] [place] [address] | [place] [address] | | | PATHOLOGY | [address] [...] DEPARTMENT OF | [address] | [place] [address] | | | PATHOLOGY | [address] | | | + + + + + | [facility] | [address] | [place] [address] | | | PATHOLOGY | [address] | | | + + + + + documented in this encounter Visit Diagnoses Not on filedocumented in this encounter"
--- OUTSIDE RECORDS SUMMARY | ~2020-04-04 | XMS | Encounter Summary ---
Demographics + + + | Address | [address] | | | [place] [address] | + + + | Home Phone [...] Providers + +------+ + | Care Rn Sane Name | Role | Phone | + [...] as of this encounter Progress Notes Interface, National Sales Associate In - 08/28/2006 3:05 AM PSTCLINIC DATE: [...] to Dr. Gant. Benson Cooper M.D. / [id number] / [id number] / [id number] / 75604 C: 11/27/1999 kavita cc: Helio Noland M.D. [facility] [address] Lloyd Garcia M.D. Department of Orthopedics documented in this encounter Plan of Treatment Not on filedocumented as of this encounter Visit Diagnoses Not on filedocumented in this encounter"
--- OUTSIDE RECORDS SUMMARY | ~2020-04-04 | XMS | Encounter Summary ---
Demographics + + + | Address | [address] | | | [place] [address] | + + + | Home Phone [...] Team Providers + +------+ + | Care Wildland Firefighter Name | Role | Phone | + [...] as of this encounter Progress Notes Interface, Offensive Coordinator In - 06/23/2006 1:07 AM PDTCLINIC DATE: [...] Ken Mejia M.D. Lloyd Garcia M.D. / [id number] / [id number] / [id number] / Tdocumented in this encounter Plan of Treatment Not on filedocumented as of this encounter Visit Diagnoses Not on filedocumented in this encounter"
--- OUTSIDE RECORDS SUMMARY | ~2020-04-04 | XMS | Encounter Summary ---
Demographics + + + | Address | [address] | | | [place] [address] | + + + | Home Phone [...] Providers + +------+ + | Care Veneer Sample Maker Name | Role | Phone | [...] | | | | | | [place], [place] | | | | | | [address] | | | | | | [phone] | | | +--------+ + + + [...] | + + + + + | [facility] | [address] | [place] [address] | | | LABORATORY | | | [...] [facility] DEPARTMENT | [address] [facility] | [place] [address] | | | PATHOLOGY | [address] | | | + + + + + | [facility] DEPARTMENT | [address] [place] [address] | [place] [address] | | | PATHOLOGY | [address] [...] | + + + + + | [facility] DEPARTMENT OF | [address] | [place] [address] | | | PATHOLOGY | [address] | | | + + + + + | [facility] DEPARTMENT OF | [address] | [place] [address] | | | PATHOLOGY | [address] [...] + + + + | [facility] | [address] | [place] [address] | | | PATHOLOGY | [address] | | | + + + + + | [facility] | [address] | [place] [address] | | | PATHOLOGY | [address] [...]
--- OUTSIDE RECORDS SUMMARY | ~2020-04-04 | XMS | Encounter Summary ---
Demographics + + + | Address | [address] | | | [place] [address] | + + + | Home Phone [...] Providers + +------+ + | Care Stone Product Fabricator Name | Role | Phone | [...] as of this encounter Discharge Summaries Interface, Log Roper In 04/28/2005 5:10 PM PDTAdmission Date: 09/25/2003 [...]
--- OUTSIDE RECORDS SUMMARY | ~2020-04-04 | XMS | Encounter Summary ---
Demographics + + + | Address | [address] | | | [place] [address] | + + + | Home Phone [...] Providers + +------+ + | Care Plate Fitter Name | Role | Phone | [...] | | | unspecified | | Rd [place], | | | | | whether | | [place] | | | | | generalized | | [address] | | | | | or | | Phone: | | | | | localized, | | [phone] | | | | | pelvic | | Fax: | | | | | region and | | [phone] | | | | | thigh Pain [...] | | | | Mailcode: [id number] | [place], [place] | inflammatory | | | | [facility] | [address] | reaction due to | | | | [place], [place] | [phone] | internal joint | | | | [address] | | prosthesis ([facility]); | | | | [phone] | | EE-NO SHOW | +--------+---------+ + [...]
--- OUTSIDE RECORDS SUMMARY | ~2020-04-04 | XMS | Encounter Summary ---
Demographics + + + | Address | [address] | | | [...] Team Providers + +------+ + | Care Interventional Neuroradiologist Name | Role | Phone | + [...]
--- OUTSIDE RECORDS SUMMARY | ~2020-04-04 | XMS | Encounter Summary ---
Demographics + + + | Address | [address] | | | [place] [address] | + + + | Home Phone | | + + + | Preferred Language | Unknown | + + + | Marital Status | | + + + | Orthodoxy Affiliation | 1076 | + + + | Race | Unknown | + + + | Ethnic Group | Unknown | + + + Author + + + | Author | [facility] | | | and [place] | + + + | Organization | [facility] | | | [...] + +------+ + | Care Care Management Associate Name | Role | Phone | + +------+ + | Eric Krishna MD | PCP | | + +------+ + Encounter Details +--------+ + + + + | Date | Type | Department | Care Team | Description | +--------+ + + + + | 12/04/ | Hospital | [facility] | Conversion | Decreased range of | | 2018 | Encounter | CENTER OPI XRAY | Transaction, | motion of hip; Hip | | | | [address] | Provider Unknown | pain, chronic, left | | | | [address] [place], [place] | [phone] | | | | | [address] | | | | | | [phone] | Carmine Frost S, | | | | | | QUILT SEWER [address] [place] [address] | | | | | | [address] [place], | | | | | | [place] [address] | | | | | | [phone] | | | | | | | [...] [place] | | | | | | [address] | | | | | | | [...]
--- OUTSIDE RECORDS SUMMARY | ~2020-04-04 | XMS | Encounter Summary ---
Demographics + + + | Address | [address] | | | [place] [address] | + + + | Home Phone | | + + + | Preferred Language | Unknown | + + + | Marital Status | | + + + | Muslim Affiliation | 1076 | + + + | Race | Unknown | + + + | Ethnic Group | Unknown | + + + Author + + + | Author | [facility] | | | and [place] | + + + | Organization | [facility] | | [...] Team Providers + +------+ + | Care Animal Surgeon Name | Role | Phone | + +------+ + PCP | Unavailable | + +------+ + Encounter Details +--------+ + + + + | Date | Type | Department | Care Team | Description | +--------+ + + + + | 09/18/ | [facility] | [facility] | Helio Ahn | | | 2005 | Encounter | MED CTR SLEEP | MD Candie [address] | | | | | CENTER [address] | [address] [facility] | | | | | [place] | [place] [address] | | | | | [address] | [phone] | | | | | [phone] | | | +--------+ + + + [...] [place] | | | | | | [address] | | | | | | | | +--------+---------+ + + + documented as of this encounter Visit Diagnoses Not on filedocumented in this encounter"
--- OUTSIDE RECORDS SUMMARY | ~2020-04-04 | XMS | Encounter Summary ---
Demographics + + + | Address | [address] | | | [place] [address] | + + + | Home Phone [...] Providers + +------+ + | Care Vacuum Truck Driver Name | Role | Phone [...] | | | | Mailcode: [id number] | [place], [place] | | | | | [facility] | [address] | | | | | [place], [place] | [phone] | | | | | [address] | | | | | | [phone] | | | +--------+ + + + [...]
--- OUTSIDE RECORDS SUMMARY | ~2020-04-04 | XMS | Encounter Summary ---
Demographics + + + | Address | [address] | | | [place] [address] | + + + | Home Phone [...] Team Providers + +------+ + | Care Aerial Installer Name | Role | Phone | [...] as of this encounter Progress Notes Interface, Jukebox Routeman In - 04/28/2005 8:48 PM PDTClinic Date: [...] well but presented to the ER in [place] approximately a week and half ago with [...] up with her primary care doctor in [place] and return to clinic and see me on an as-needed basis only. Lloyd Garcia M.D. Assistant Producer, Orthopedics and Rehabilitation / [id number] / [id number] / [id number] / [id number] cc: Dr. Pearce [facility] [address] [place] [address] Rinaldi M.D. [address] [place] [address], [place] [address]Yarceeyyxmkdyz signed by Interface, Jukebox Routeman In at 04/28/2005 8:4 8 PM PDTdocumented in this encounter Plan of Treatment Not on filedocumented as of this encounter Visit Diagnoses Not on filedocumented in this encounter"
--- OUTSIDE RECORDS SUMMARY | ~2020-04-04 | XMS | Encounter Summary ---
Demographics + + + | Address | [address] | | | [place] [address] | + + + | Home Phone [...] Team Providers + +------+ + | Care Microsoft Net Developer Name | Role | Phone | [...] | | | | | Roxann Ayala [place], | | | | | | [place] [address] | | | +--------+ + + + [...] | | Patient: SHELBY GALDAMEZ Med Rec: [id number] Sex F Bdate: 1960 | | Date/Time Data | | Entered Into [facility] | | Anesth PostOp | | Surgery Date [id number] 10/11/03 10:54 | | [id number] 10/06/03 10:47 | | [id number] 10/04/03 10:47 | | [id number] 10/01/03 11:25 | | [id number] 09/28/03 10:01 | | [id number] 09/27/03 11:35 | | [id number] 09/14/03 11:13 | | [id number] 08/17/03 10:51 | | Anesthesiologist SEBASTIAN MARIO [...]
--- OUTSIDE RECORDS SUMMARY | ~2020-04-04 | XMS | Encounter Summary ---
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 [...] prn f/u here as she lives near [place]. d ocumented in this encounter Plan of [...]
--- OUTSIDE RECORDS SUMMARY | ~2020-04-04 | XMS | Encounter Summary ---
Demographics + + + | Address | [address] | | | [place] [address] | + + + | Home Phone [...] Providers + +------+ + | Care Global Sales Executive Name | Role | Phone [...] | | | | | [place] | [address] | Pavilion | | | | | localized, | | [place], [place] | | | | | pelvic | | [address] | | | | | region and | | Phone: | | | | | thigh | | [phone] | | | | | Intervertebr | | Fax: | | | | | al lumbar | | [phone] | | | | | disc | [...] Pavilion | | | | | | [place], [place] | | | | | | [address] | | | | | | [phone] | | | +--------+---------+ + + + [...] tenderness. Severe gluteus medius limp. Most recent [facility] Laboratory Studies: Normal C-reactive protein at 0.5 (02/10/04), normal [facility] te cell count at 9.4 & [...] this done around the time of the [place]-up so she can enjoy shopp ing. [...] hip arthroplasty if needed. Lloyd Garcia M.D. Mailroom Courier, Orthopedics and Rehabilitation documented in this encount [...] | + +---------+ + + | [facility] DEPARTMENT OF | | | [...] 2: | | | | | | ZULYA MATTSONUDY: | | | | | | [...] | + +---------+ + + | [facility] DEPARTMENT OF | | | [...]
--- OUTSIDE RECORDS SUMMARY | ~2020-04-04 | XMS | Encounter Summary ---
Demographics + + + | Address | [address] | | | [place] [address] | + + + | Home Phone | | + + + | Preferred Language | Unknown | + + + | Marital Status | | + + + | Uatsdin Affiliation | 1076 | + + + | Race | Unknown | + + + | Ethnic Group | Unknown | + + + Author + + + | Author | [facility] | | | and [place] | + + + | Organization | [facility] | | | and [...] Providers + +------+ + | Care Business Solution Analyst Name | Role | Phone | [...] 2011 | | GASTROENTEROLOGY | [address], [place] | | | | | [address] [facility] | [address] [place], [place] | | | | | [address] [place], [place] | [address] | | | | | [address] | | | | | | [phone] | | | +--------+ + + + [...] pcp and is wonde ring if in [place] can do the procedure. She will call [...] [place] | | | | | | [address] | | | | | | | | +--------+---------+ + + + documented as of this encounter Visit Diagnoses Not on filedocumented in this encounter
--- OUTSIDE RECORDS SUMMARY | ~2020-04-04 | XMS | Encounter Summary ---
Demographics + + + | Address | [address] | | | [place] [address] | + + + | Home Phone [...] + +------+ + | Care Pan Washer Hand Name | Role | Phone | [...] | | | | [facility] | [address] | | | | | [place], [place] | [phone] | | | | | [address] | | | | | | [phone] | | | +--------+ + + + [...]
--- OUTSIDE RECORDS SUMMARY | ~2020-04-04 | XMS | Encounter Summary ---
Demographics + + + | Address | [address] | | | [place] [address] | + + + | Home Phone [...] Team Providers + +------+ + | Care Flood Control Engineer Name | Role | Phone | [...] | | | | [facility] | [address] | | | | | [facility] [place] | [phone] | | | | | [address] | | | | | | [phone] | | | +--------+ + + + [...]
--- OUTSIDE RECORDS SUMMARY | ~2020-04-04 | XMS | Encounter Summary ---
Demographics + + + | Address | [address] | | | [place] [address] | + + + | Home Phone [...] Providers + +------+ + | Care Project Systems Engineer Name | Role | Phone [...] | Procedures | Roxann Ayala | Rd [place], | | | | | CONSULT TO | [place], [place] | [place] | | | | | ORTHOPEDICS | [address] | [address] | | | | | AND | Phone: | Phone: | | | | | REHABILITATI | [phone] | [phone] | | | | | ON | Fax: | Fax: | | | | | | [phone] | [phone] | +--------+--------+ + + + + Encounter Details +--------+---------+ + + + | Date | Type | Department | Care Team | Description | +--------+---------+ + + + | 04/10/ | Office | Orthopaedic Spine | Krishna, Vince, MD | Back pain (Primary | | 2010 | Visit | Center at [facility] [address] | [address] | Dx) | | | | [address] | Roxann Ayala [place], | | | | | Mailcode: [id number] | [place] [address] | | | | | [facility] | [phone] | | | | | and Healing, | | | | | | Building | | | | | | Floor [place], [place] | | | | | | [address] | | | | | | [phone] | | | +--------+---------+ + + + [...]
--- OUTSIDE RECORDS SUMMARY | ~2020-04-04 | XMS | Encounter Summary ---
Demographics + + + | Address | [address] | | | [place] [address] | + + + | Home Phone [...] Team Providers + +------+ + | Care Electronic Gaming Device Supervisor Name | Role | Phone | [...] | Diseases at [facility] | MEGAN Reddy [address] | | | | | [address] | [address] | | | | | Loop Physician's | [place], [place] | | | | | [place], 3rd floor | [address] | | | | | [place], [place] | [phone] | | | | | [address] | | | | | | [phone] | | | +--------+ + + + [...] [address] | [facility] | [phone] | | [facility] | | [address] | | + + + + + | [place] | [address] | [facility] | | | [facility] | | [address] | | + + + + + [...] [address] | [facility] | [phone] | | [facility] | | [address] | | + + + + + | FREDDY HAYES | [address] | [facility] | | | [facility] | | [address] | | + + + + + documented in this encounter Visit Diagnoses Not on filedocumented in this encounter"
--- OUTSIDE RECORDS SUMMARY | ~2020-04-04 | XMS | Encounter Summary ---
Demographics + + + | Address | [address] | | | [place] [address] | + + + | Home Phone [...] Providers + +------+ + | Care Community Health Specialist Name | Role | Phone | + +------+ + | No Pcp Per Patient | PCP | Unavailable | + +------+ + Encounter Details +--------+ + + + + | Date | Type | Department | Care Team | Description | +--------+ + + + + | 12/15/ | Stove Refinisher | Orthopaedics at | Kalyan Arias MD | JUAN DAVID (Total Hip | | 2008 | | [facility] [address] | [address] | Arthroplasty) | | | | [address] | [address] | (Primary Dx) | | | | Mailcode: [id number] | [place], [place] | | | | | [facility] | [address] | | | | | [place], [place] | [phone] | | | | | [address] | | | | | | [phone] | | | +--------+ + + + [...]
--- OUTSIDE RECORDS SUMMARY | ~2020-04-04 | XMS | Encounter Summary ---
Demographics + + + | Address | [address] | | | [place] [address] | + + + | Home Phone [...] Team Providers + +------+ + | Care Geriatric Social Worker Name | Role | Phone [...] | | | | | | [place], [facility] Floor | | | | | | [place], [place] | | | | | | [address] | | | | | | [phone] | | | +--------+ + + + [...] X-RAY HIP 2 | Med Rec No: [id number] | | | | | VIEWS | Name: | | | | | RIGHT W/ | SHELBY GALDAMEZ C | | | | | PELVIS 1 | Birthday: 1960 | | | | | VIEW | Sex: F | | | | | | Alias:Patient Location: | | | | | | [id number]: Outpatient | | | | | | [...] # | | | | | | [id number]:PELVIS | | | | | | ONE [...]
--- OUTSIDE RECORDS SUMMARY | ~2020-04-04 | XMS | Encounter Summary ---
Demographics + + + | Address | [address] | | | [place] [address] | + + + | Home Phone | | + + + | Preferred Language | Unknown | + + + | Marital Status | | + + + | Moravian Affiliation | 1076 | + + + | Race | Unknown | + + + | Ethnic Group | Unknown | + + + Author + + + | Author | [facility] | | | and [place] | + + + | Organization | [facility] | | [...] Providers + +------+ + | Care Research Aide Name | Role | Phone | [...] + + | 07/20/ | Telephone | [facility] | Jasper Medrano, | Referral Question | | 2018 | | [address] | [address] | (nutrition referral | | | | [place], [place] | [place] | question) | | | | [address] | [phone] | | | | | [phone] | | | +--------+ + + + [...] Miscellaneous Notes Telephone Encounter - Kina Hendrix Tack Maker - 07/20/2019 4:20 PM PDTPatient called wanting to know if we had a referral for nutrition. I Tried calling patient to answer her question regarding the Nutrition Referral, but there was no answer, so I left a VM. Patient refused Nutritional Service & referral got closed. Patient can call [facility] Diabetes [facility] at .Electronically signed by Kina Hendrix Tack Maker at 07/01 4:51 PM PDTTelephone Encounter - Deb Terrazas - 07/20/2019 2:34 PM PDTAnswe ring Service Message from 07/20/19 @ 2:25pm: I would like to know if you have a referral for a anthropology and archeology instructor. Please call back. documented in this encounter [...] [place] | | | | | | [id number] | | | | | | | | +--------+---------+ + + + documented as of this encounter Visit Diagnoses Not on filedocumented in this encounter"
--- OUTSIDE RECORDS SUMMARY | ~2020-04-04 | XMS | Encounter Summary ---
Demographics + + + | Address | [address] | | | [place] [address] | + + + | Home Phone [...] Providers + +------+ + | Care Child Attendant Name | Role | Phone | [...] | | | unspecified | | Rd [place], | | | | | whether | | [place] | | | | | generalized | | [address] | | | | | or | | Phone: | | | | | localized, | | [phone] | | | | | pelvic | | Fax: | | | | | region and | | [phone] | | | | | thigh | [...] | | | | Mailcode: PV430 | [place], [place] | | | | | [facility] | [address] | | | | | [place], [place] | [phone] | | | | | [address] | | | | | | [phone] | | | +--------+---------+ + + + [...]
--- OUTSIDE RECORDS SUMMARY | ~2020-04-04 | XMS | Encounter Summary ---
Demographics + + + | Address | [address] | | | [place] [address] | + + + | Home Phone [...] Providers + +------+ + | Care Tool Storage Attendant Name | Role | Phone | [...] + + | 01/20/ | Telephone | [facility] | Xiang Sepulveda, | Appointment | | 2020 | | [facility] | DO [address] | | | | | DOLOROLOGY [address] | [place], [place] | | | | | [address] | [address] | | | | | [place], [place] | | | | | | [address] | | | | | | [phone] | | | +--------+ + + + [...] Miscellaneous Notes Telephone Encounter - Antonella Sprague, Commercial Lines Manager - 01/21/2020 2:26 PM PDTCalled and left [...] [place] | | | | | | [address] | | | | | | | | +--------+---------+ + + + documented as of this encounter Visit Diagnoses Not on filedocumented in this encounter"
--- OUTSIDE RECORDS SUMMARY | ~2020-04-04 | XMS | Encounter Summary ---
Demographics + + + | Address | [address] | | | [place] [address] | + + + | Home Phone [...] Providers + +------+ + | Care Telephone Instrument Supervisor Name | Role | Phone | [...] | | | | [facility] | [address] | | | | | [place], [place] | [phone] | | | | | [address] | | | | | | [phone] | | | +--------+ + + + [...]
--- OUTSIDE RECORDS SUMMARY | ~2020-04-04 | XMS | Encounter Summary ---
Demographics + + + | Address | [address] | | | [place] [address] | + + + | Home Phone [...] Team Providers + +------+ + | Care Goodyear Welter Name | Role | Phone | + [...] | unspecified | [address] | Rd [place], | | | | | whether | [place], [place] | [place] | | | | | generalized | [address] | [address] | | | | | or | Phone: | Phone: | | | | | localized, | [phone] | [phone] | | | | | pelvic | Fax: | Fax: | | | | | region and | [phone] | [phone] | | | | | thigh | | | | | | | Osteoarthrit | | | | | | | is of Hip | | | | | | | Procedures | | | | | | | LA TOTAL HIP | | | | | | | | | | | | | | ARTHROPLASTY | | | | | | | LA | | | | | | | RECONSTRUC | | | | | | | HIP | | | | | | | SOCKET,RESEC | | | | | | | FEM HEAD | | | | | | | LA REMOVAL | | | | | | | OF ISCHIAL | | | | | | | BURSA LA | | | | | | | [...] Pavilion | | | | | | [place], [place] | | | | | | [address] | | | | | | [phone] | | | +--------+---------+ + + + [...] surgeries scheduled to take place on the imogene at the [facility]: Surgeries scheduled in the [facility] ([address] [place] [address]): registration is located on the 4th floor of [facility] (Day Surgery). Surgeries scheduled in the [facility]: registration is located on the 9th floor. Surgeries scheduled in [facility]: registration is located on the 6th floor. Surgeries scheduled in the [facility]: registration is located i n the [facility] on the first floor. For surgeries scheduled to take place at the [facility]: registration is [...] If you use specialized medical equipment at [facility], please check with your provider before bringing [...] surgeries scheduled to take place on the imogene at the [facility]: Surgeries scheduled in the [facility] ([address] [place] [address]): registration is located on the 4th floor of [facility] (Day Surgery). Surgeries scheduled in the [facility]: registration is located on the 9th floor. Surgeries scheduled in [facility]: registration is located on the 6th floor. Surgeries scheduled in the [facility]: registration is located i n the [facility] on the first floor. For surgeries scheduled to take place at the [facility]: registration is l [...] you use specialized medical equipment at [facility], please check with your provider before [...] infection has s calvin been cleared with intermediate school teacher antibiotics. In this time she has also [...] OF ACTION: see above PARQ: see above. [facility] umeunice in this encounter Plan of [...] Performed At | + + + | [id number] Estimated GFR > 60 mL/min/1.73 sq m if non- | [facility] | | Trinidadian [id number] Estimated GFR > 60 mL/min/1.73 sq m if | DEPARTMENT OF | | Trinidadian GFR is estimated using the MDRD equation [...] | [facility] | [address] | [place] [address] | | | PATHOLOGY | [address] | | | + + + + + | [facility] | [address] | [place] [address] | | | PATHOLOGY | [address] [...] + + | [facility] | [facility] | [place] [address] | | | PATHOLOGY | [address] | | | + + + + + | [facility] | [address] [facility] | [place] [address] | | | PATHOLOGY | [address] [...] | [facility] DEPARTMENT OF | [facility] | [place] [address] | | | PATHOLOGY | [address] | | | + + + + + | [facility] DEPARTMENT OF | [facility] | [place] [address] | | | PATHOLOGY | [address] [...] + + + + | PRODUCT | [id number] | | [facility] | | | UNIT [...] + | [facility] | [address] [facility] | [place] [address] | | | PATHOLOGY | [address] | | | + + + + + | [facility] | [address] [place] [address] | [place] [address] | | | PATHOLOGY | [address] | | | + + + + + documented in this encounter Visit Diagnoses + + | Diagnosis | + + | Other specified pre-operative examination - Primary | + + documented in this encounter
--- OUTSIDE RECORDS SUMMARY | ~2020-04-04 | XMS | Encounter Summary ---
Demographics + + + | Address | [address] | | | [place] [address] | + + + | Home Phone [...] Team Providers + +------+ + | Care Glost Kiln Operator Name | Role | Phone [...] | | | | | Osteoarthros | [address] | Pavilion | | | | | is, | | [place], [place] | | | | | unspecified | | [address] | | | | | whether | | Phone: | | | | | generalized | | [phone] | | | | | or | | Fax: | | | | | localized, | | [phone] | | | | | pelvic | [...] | | [address] | [address] [place], | | | | | Mailcode: PV430 | [place] [address] | | | | | [facility] | | | | | | [place], [place] | | | | | | [address] | | | | | | [phone] | | | +--------+---------+ + + + [...] Walks with glut medius limp. Uses cane director of partner marketing. Pain is in inner groin and posteriorly. [...] + + | Performing | Address | City/State[facility] | Phone Number | | Organization | [...]
--- OUTSIDE RECORDS SUMMARY | ~2020-04-04 | XMS | Encounter Summary ---
Demographics + + + | Address | [address] | | | [place] [address] | + + + | Home Phone [...] as of this encounter Progress Notes Interface, Airplane Mechanic Apprentice In - 06/03/2006 3:06 AM PDTCLINIC DATE: [...] by her new primary care physician in [place], and she is requesting a repeat hip [...] this would be inadvisable. Lloyd Garcia M.D. Liaison Planner, Orthopedics and Rehabilitation / [id number] / [id number] / [id number] / [id number] cc: Ninfa Guillen M.D. [address] [facility], [place] [address]Pkeeytrvjlnjpm signed by Interface, Airplane Mechanic Apprentice In at 06/03/2006 3:06 AM PDTInterface, Airplane Mechanic Apprentice In - 06/03/2006 3:06 AM PDTCLINIC DATE: [...] go ahead and send her back to [facility] Radiology Musculoskeletal specialist for a right intraarticular hip injection as this is what she wants. We will currently hold off on hip replacement due to her young age, and she can follow up back in the clinic in 6months' time. Tr Mcghee M.D. Lloyd Gacria M.D. / [id number] / [id number] / [id number] / Tdocumented in this encounter Plan of Treatment Not on filedocumented as of this encounter Visit Diagnoses Not on filedocumented in this encounter"
--- OUTSIDE RECORDS SUMMARY | ~2020-04-04 | XMS | Encounter Summary ---
Demographics + + + | Address | [address] | | | [place] [address] | + + + | Home Phone [...] Providers + +------+ + | Care Counselor Marriage And Family Name | Role | Phone | + [...] | | | | | osteoarthrit | [address] | [address] | | | | | is of left | [address] | [address] | | | | | hip | [address] | Mailcode: | | | | | Procedures | [place], [place] | Center for | | | | | CONSULT TO | [address] | Health and | | | | | BARIATRIC | Phone: | Healing, | | | | | SURGERY | [phone] | Building [address] | | | | | | Fax: | [place], [place] | | | | | | [phone] | [address] | | | | | | | Phone: | | | | | | | | | | | | | | Fax: | | | | | | | [phone] | +--------+--------+ + + + + Reason [...] | | | | | | Jamie [place], | | | | | | | [place] | | | | | | | [address] | | | | | | | Phone: | | | | | | | [phone] | | | | | | | Fax: | | | | | | | [phone] | +--------+--------+ + + + + Encounter [...] | | Healing [address] | [place], [place] | Dx); Left hip pain; | | | | Ave Mailcode: | [address] | Smoking; Chronic | | | | [address] for | [phone] | obstructive | | | | Health and Healing, | | pulmonary disease, | | | | Building [address]th | | unspecified COPD | | | | Floor [place], [place] | | type ([facility]); Class 3 | | | | [address] | | severe obesity with | | | | [phone] | | body mass index | | | | | | (BMI) of 40.0 to | | | | | | 44.9 in adult, | | | | | | unspecified obesity | | | | | | type, unspecified | | | | | | whether serious | | | | | | comorbidity present | | | | | | ([facility]) | +--------+---------+ + + + Social History [...] might be different fro m the original. [facility] DEPARTMENT OF ORTHOPAEDICS & REHABILITATION Adult [...] W-FE,OTHER MIN (CENTRUM ORAL), Take by mouth. Motley-3 Fatty Acids-Vitamin E (FISH OIL) 1,000 mg [...] with exam and radiographic evidence consistent with abrli, end-stage osteoarthritis. -Status post right total hip [...] The patient was offered a referral to [facility], for non-surgical and potentially surgical o ptions. [...] |Preliminary: Yue Porter MD | |Dictation initiated: Yeu Porter MD 10/02/2018 10:06 AM | + [...]
--- OUTSIDE RECORDS SUMMARY | ~2020-04-04 | XMS | Encounter Summary ---
Demographics + + + | Address | [address] | | | [place] [address] | + + + | Home Phone [...] Team Providers + +------+ + | Care Metalsmith Helper Name | Role | Phone | [...] as of this encounter Progress Notes Interface, Sports Medicine Specialist In - 04/15/2006 1:11 AM PDTCLINIC DATE: [...] age and her obesity. Lloyd Garcia M.D. Projection Welding Machine Operator of Orthopedics and Rehabilitation / [id number] / [id number] / [id number] / cc: Rinaldi M.D. [address], [place] [id number] signed by Interface, Sports Medicine Specialist In at 04/15/2006 1:1 1 AM PDTInterface, Sports Medicine Specialist In - 04/15/2006 1:11 AM PDTCLINIC DATE: [...] her injection. MD Lloyd Merritt M.D. / [id number] / [id number] / [id number] / Tdocumented in this encounter Plan of Treatment Not on filedocumented as of this encounter Visit Diagnoses Not on filedocumented in this encounter"
--- OUTSIDE RECORDS SUMMARY | ~2020-04-04 | XMS | Encounter Summary ---
Demographics + + + | Address | [address] | | | [place] [address] | + + + | Home Phone [...] Providers + +------+ + | Care Ivory Carver Name | Role | Phone | + +------+ + | Marta Jenkins .NET PROGRAMMER | PCP | | + +------+ + [...] | | | | | (HCC) | [facility] | Mailcode: | | | | | Procedures | Rd | [facility] | | | | | PHYSICAL | [place], [place] | for Health | | | | | THERAPY | [address] | and Healing, | | | | | REFERRAL | Phone: | Building 1, | | | | | | [phone] | [address] Floor | | | | | | Fax: | [place], [place] | | | | | | [phone] | [address] | | | | | | | Phone: | | | | | | | [phone] | | | | | | | Fax: | | | | | | | [phone] | +--------+--------+ + + + + Encounter Details +--------+ + + + + | Date | Type | Department | Care Team | Description | +--------+ + + + + | 11/19/ | Fork Lift Truck Operator | Digestive Health | Wanda López ACNP | Morbid obesity (HCC) | | 2019 | | Center at [facility] [address] | [address] | (Primary Dx) | | | | [address] | [address] [place], | | | | | Mailcode: [place] | [place] [address] | | | | | for Health and | [phone] | | | | | [facility] 2 | | | | | | [place], [place] | | | | | | [address] | | | | | | [phone] | | | +--------+ + + + [...]
--- OUTSIDE RECORDS SUMMARY | ~2020-04-04 | XMS | Encounter Summary ---
Demographics + + + | Address | [address] | | | [place] [address] | + + + | Home Phone [...] Team Providers + +------+ + | Care Slag Production Worker Name | Role | Phone | [...] | Diseases at [facility] | MEGAN Reddy [address] | | | | | [address] | [address] | | | | | Loop Physician's | [place], [place] | | | | | [place], 3rd floor | [address] | | | | | [place], [place] | [phone] | | | | | [address] | | | | | | [phone] | | | +--------+ + + + [...]
--- OUTSIDE RECORDS SUMMARY | ~2020-04-04 | XMS | Encounter Summary ---
Demographics + + + | Address | [address] | | | [place] [address] | + + + | Home Phone [...] Providers + +------+ + | Care Spring Assembler Name | Role | Phone | [...] as of this encounter Progress Notes Interface, Aerospace Mechanic In - 04/28/2005 6:17 PM PDTClinic Date: [...] is completed this weekend. Lloyd Garcia M.D. Electric Distribution Checker, Orthopedics and Rehabilitation / [id number] / [id number] / [id number] / [id number] cc: Ninfa Guillen M.D. [address] [place] [address], [place] [address]Uxfevulvsjovyr signed by Interface, Aerospace Mechanic In at 04/28/2005 6:1 7 PM PDTdocumented in this encounter Plan of Treatment Not on filedocumented as of this encounter Visit Diagnoses Not on filedocumented in this encounter"
--- OUTSIDE RECORDS SUMMARY | ~2020-04-04 | XMS | Encounter Summary ---
Demographics + + + | Address | [address] | | | [place] [address] | + + + | Home Phone [...] Providers + +------+ + | Care Training And Development Assistant Name | Role | Phone | + +------+ + PCP | Unavailable | + +------+ + Encounter Details +--------+ + + + + | Date | Type | Department | Care Team | Description | +--------+ + + + + | 06/24/ | Results | | Other, Faculty | | | 2000 | Only | | [phone] | | +--------+ + + + + [...] [facility] DEPARTMENT | | | | | RADIOLOGY | | | | + +---------+ + + documented in this encounter Visit Diagnoses Not on filedocumented in this encounter"
--- OUTSIDE RECORDS SUMMARY | ~2020-04-04 | XMS | Encounter Summary ---
Demographics + + + | Address | [address] | | | [place] [address] | + + + | Home Phone [...] Team Providers + +------+ + | Care Diversified Crops Farmworker Name | Role | Phone | [...] [address] | | | | | [address] | [address] | | | | | Loop Physician's | [place], [place] | | | | | [place], 3rd floor | [address] | | | | | [place], [place] | [phone] | | | | | [address] | | | | | | [phone] | | | +--------+ + + + [...] + + + | [facility] | [address] | [place] [address] | | | [facility] | | | | + + [...] + + + | [facility] | [address] | [place] [address] | | | [facility] | | | | + + + + + documented in this encounter Visit Diagnoses Not on filedocumented in this encounter"
--- OUTSIDE RECORDS SUMMARY | ~2020-04-04 | XMS | Encounter Summary ---
Demographics + + + | Address | [address] | | | [place] [address] | + + + | Home Phone [...] Providers + +------+ + | Care Laborer Chicken Farm Name | Role | Phone | + [...] | | | | | | | [address] | | | | | | | [address] | | | | | | | Jamie 2SE/UHN85 | | | | | | | Rose | | | | | | | [place] | | | | | | | (MNP/OLD [facility]) | | | | | | | [place], | | | | | | | [place] [address] | +--------+--------+ + + + + Encounter Details +--------+ + + + + | Date | Type | Department | Care Team | Description | +--------+ + + + + | 09/06/ | Hospital | [facility] [address] | Tyrone Colby MD | | | 2007 - | Encounter | [address] [facility] [address] | [address] [facility] | | | | | 2SE/UHN85 | [facility] | | | 09/09/ | | [address] | [place], [place] | | | 2007 | | (MNP/[facility]) | [address] | | | | | [place], [place] | [phone] | | | | | [address] | | | +--------+ + + + [...] #3. Radiation oncology team was consulted and [facility] administered a single radiation treatment as [...] incision and call the Orthopaedi c clinic [phone]. 2. Continue to take Aspirin 325mg twice [...] your wound is infected. Call veterinary surgeon [facility] Orthopaedist first. Call [phone] for daytime and weekdays, or [phone] for nights and weekends. If you have [...] Dr. Colby in 2 wks. Please call [phone] now to confirm appointment. Follow Up Tests: (Tests at [facility] must be entered into Local [employer]) none Condition On Discharge: Good Discharge Medications: [...] incision and call the Orthopaedi c clinic [phone]. 2. Continue to take Aspirin 325mg twice [...] your wound is infected. Call veterinary surgeon [facility] Orthopaedist first. Call [phone] for daytime and weekdays, or [phone] for nights and weekends. If you have [...] Dr. Colby in 2 wks. Please call [phone] now to confirm appointment. Follow Up Tests: (Tests at [facility] must be entered into The Medical [...] Faculty - 8 12:00 AM Shelby Thompson [id number] [facility] REC NUMBER: [id number] NAME : Shelby Galdamez DATE : 1960 Admit Date: 09/06/2008 Discharge Date: 09/09/2008 PHYSICIAN'S REQUEST FOR HOME HEALTH SERVICES Relevant History: Location to receive services if other than home: Allergies: Height: Weight: Ordering Physician: [address] [facility] [address], [place] [address] Physician to follow for ongoing home health orders: PCP Name: PCP Phone: Discharge Need(s): 1. Correction Facility Discharge Vendor: [facility] Discharge Suggested First Visit/Delivery Date: Discharge Service/Equipment: 2. Transportation Discharge Vendor: Medicaid - [place] Discharge Suggested First Visit/Delivery Date: Discharge Service/Equipment: stretcher 12:30pm Research Professor Of Biostatistics: Tr Rosales - 09/08/2008 2:22 PM PSTRADIATION [...] as able . Tasha Harding OTR//L Pager [phone] Tyrone Haney - 2007 7:55 AM PST [...] COLBY MD [facility] [address] 2se/uhn85 [place] [address] Taz Rand - 08/30 5:50 AM PST [...] DEPARTMENT OF | [address] | [place] [address] | | | PATHOLOGY | [address] | | | + + + + + | [facility] DEPARTMENT OF | [address] | [place] [address] | | | PATHOLOGY | [address] [...] [facility] DEPARTMENT OF | [address] | [place] [address] | | | PATHOLOGY | [address] | | | + + + + + | [facility] DEPARTMENT OF | [address] | [place] [address] | | | PATHOLOGY | [address] [...] [facility] | [address] [facility] | [place] [address] | | | PATHOLOGY | [address] | | | + + + + + | [facility] | [address] [facility] | [place] [address] | | | PATHOLOGY | [address] [...] [facility] DEPARTMENT OF | [address] [facility] | [place] [address] | | | PATHOLOGY | [address] | | | + + + + + | [facility] DEPARTMENT OF | [address] [facility] | [place] [address] | | | PATHOLOGY | [address] [...] DEPARTMENT OF | [address] | [place] [address] | | | PATHOLOGY | [address] | | | + + + + + | [facility] DEPARTMENT OF | [address] | [place] [address] | | | PATHOLOGY | [address] [...] | | THERAPY | | | | ELECTRICIAN ASSISTANT | | | | + + [...] [facility] RESPIRATORY | [address] | [place], [place] | | | THERAPY | [address] | [address] | | + + + + + | [facility] RESPIRATORY | [address] | [place], [place] | | | THERAPY | [address] | [address] | | + + + + + [...] Lynn, | | | | | | ELECTRICIAN ASSISTANT | | | | + + [...] [facility] RESPIRATORY | [address] | [place], [place] | | | THERAPY | [address] | [address] | | + + + + + | [facility] RESPIRATORY | [address] | [place], [place] | | | THERAPY | [address] | [address] | | + + + + + [...] [facility] DEPARTMENT OF | [address] [facility] | [place] [address] | | | PATHOLOGY | [address] | | | + + + + + | [facility] DEPARTMENT OF | [address] [facility] | [place] [address] | | | PATHOLOGY | [address] [...] [facility] | [address] [facility] | [place] [address] | | | PATHOLOGY | [address] | | | + + + + + | [facility] | [address] [facility] | [place] [address] | | | PATHOLOGY | [address] [...] + + + + | [facility] | [address] | [place] [address] | | | PATHOLOGY | [address] | | | + + + + + | [facility] | [address] | [place] [address] | | | PATHOLOGY | [address] [...] [facility] | [address] [facility] | [place] [address] | | | PATHOLOGY | [address] | | | + + + + + | [facility] | [address] [facility] | [place] [address] | | | PATHOLOGY | [address] [...] Recio, | | | | | | ELECTRICIAN ASSISTANT | | | | + + [...] [facility] RESPIRAT[facility] | [address] | [place], [place] | | | THERAPY | [facility] | [address] | | + + + + + | [facility] RESPIRATORY | [address] | [place], [place] | | | THERAPY | [facility] | [address] | | + + + + + [...] | THERAPY | | | | Hemal, ELECTRICIAN ASSISTANT | | | | + + [...] [facility] RES[facility] | [address] | [place], [place] | | | THERAPY | [address] | [address] | | + + + + + | [facility] RESPIRAT[facility] | [address] | [place], [place] | | | THERAPY | [address] [facility] | [address] | | + + + + + [...] | | | | | | by: Nigaht Recio, | | | | | | ELECTRICIAN ASSISTANT | | | | + + [...] | [facility] RESP[facility] | [address] [facility] | [place], [place] | | | THERAPY | [facility] | [address] | | + + + + + | [facility] RESP[facility] | [address] [facility] | [place], [place] | | | THERAPY | [facility] | [address] | | + + + + + [...] [facility] RES[facility] | [address] | [place], [place] | | | THERAPY | [address] | [address] | | + + + + + | [facility] RESPIR[facility]ORY | [address] | [place], [place] | | | THERAPY | [address] [facility] | [address] | | + + + + + [...] Performed At | + + + | [id number] | | | [id number] TALLY | | | [place] [id number] Date: | | | 09/06/2008 Attending Surgeon: | | | Tyrone Colby M.D. Director Of Career Resources(s): | | | Maximiliano Chisholm M.D. | [...] | | decubitus position with a hip natural resource manager. The right hind quadrant and | | [...] Tyrone Alcantar | | | Sierra Colby. [facility] [id number] / [id number] / [id number] / | | | | | + + + + + | Procedure Note | + + | Tyrone Colby MD - 09/06/2008 12:00 AM [facility] [id number] | | [id number] CHAD Osei | | [id number] Date: 09/06/2008 Attending Surgeon: Tyrone | | Ortiz Colby M.D. Director Of Career Resources(s): Maximiliano Chisholm M.D. | | Linh Wiggins [...] decubitus position with a hip | | natural resource manager. Theright hind quadrant and lower extremity were [...] is | | warranted. Tyrone Colby M.D. [facility] / [id number] / [id number] / [id number] /D: | | 09/06/2008T: 09/06/2008 | |anteriorly [...] Colby M.D. | | | | | |[facility] / | |[id number] / [id number] / [id number] / | | | | | | [...] + +---------+ +---+--------+---+ | morphine 5 mg/mL NEON MOLDER infusion | New Bag | 09/07/20 | [...] | | | | | 1955, Until [facility] 09/09/08 at 1941, | | | [...]
--- OUTSIDE RECORDS SUMMARY | ~2020-04-04 | XMS | Encounter Summary ---
Demographics + + + | Address | [address] | | | [place] [address] | + + + | Home Phone [...] Providers + +------+ + | Care Automatic Bandsaw Tender Name | Role | Phone | [...] | | | Osteoarthros | | [address] [facility] | | | | | is, | RICH[address] | [address] | | | | | unspecified | [facility] | [address] [place], | | | | | whether | CL[facility] [address] | [place] | | | | | generalized | [address] | [address] | | | | | or | [place], | Phone: | | | | | localized, | [place] [address] | [phone] | | | | | pelvic | Phone: | Fax: | | | | | region and | [phone] | [phone] | | | | | thigh | Fax: | | | | | | | [phone] | | +--------+--------+ + + + + [...] [address] | | | | | | [place], [place] | | | | | | [address] | | | | | | [phone] | | | +--------+---------+ + + + [...] agree with the note. TYRONE COLBY MD [facility] ORTHOPAEDICS & REHABILITATION [address] [place] [address] Mailcode: Pv430 [place] [address] esfaye Saenz PA-C - 01/20/2009 [...] CRP pending. Offered to refer her to [facility] pain clinic if she [...] DEPARTMENT OF | [address] | [place] [address] | | | PATHOLOGY | [address] | | | + + + + + | [facility] DEPARTMENT OF | [address] | [place] [address] | | | PATHOLOGY | [address] | | | + + + + + SEDIMENTATION RATE (01/20/2009 10:02 AM PDT) + +-------+ + + + | Component | Value | Ref Range | Performed | Pathologist | | | | | At | Signature | + +-------+ + + + | SEDIMENTATI | 16 | <21 mm/hr | [facility] | | | ON RATE [...] | + + + + + | [facility] | [address] [facility] | [place] [address] | | | PATHOLOGY | [address] | | | + + + + + | [facility] | [facility] | [place] [address] | | | PATHOLOGY | [address] [...] Change effective 10/26/08 | | | [facility] | | | [place] [address] | | | [place] [address] | | + + + + + + + + | Performing | Address | City/State/Zipcode | Phone Number | | Organization | | | | + + + + + | [facility] | [address] | [place] [address] | | | LABORATORY | | | | + + + + + documented in this encounter Visit Diagnoses + + | Diagnosis | + + | Hip pain Pain in joint, pelvic region and thigh | + + | Hip replacement Hip joint replacement by other means | + + documented in this encounter"
--- OUTSIDE RECORDS SUMMARY | ~2020-04-04 | XMS | Encounter Summary ---
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 | without myelopathy | | | | [address] [place], [place] | [place] [address] | or radiculopathy; | | | | [address] | | Spondylosis of | | | | [phone] | | lumbar region | | | [...] [place] | | | | | | [address] | | | | | | | [...]
--- OUTSIDE RECORDS SUMMARY | ~2020-04-04 | XMS | Encounter Summary ---
Demographics + + + | Address | [address] | | | [place] [address] | + + + | Home Phone [...] Providers + +------+ + | Care Engineering Group Manager Name | Role | Phone | [...] [place] | | | | | | [address] | | | | | | [phone] | | | +--------+ + + + [...] of | | | | | | [id number] | | | | | | jose. [...] + + | [facility] DEPARTMENT | | | | | RADIOLOGY [...]
--- OUTSIDE RECORDS SUMMARY | ~2020-04-04 | XMS | Encounter Summary ---
Demographics + + + | Address | [address] | | | [place] [address] | + + + | Home Phone [...] Providers + +------+ + | Care Head Chopper Name | Role | Phone | [...] [place] | | | | | | [address] | | | | | | [phone] | | | +--------+ + + + [...] | + + + + + | [facility] | [address] | [place] [address] | | | LABORATORY | | | [...] | + + + + + | [facility] DEPARTMENT | [address] [facility] | [place] [address] | | | PATHOLOGY | [address] | | | + + + + + | [facility] DEPARTMENT | [address] [place] [address] | [place] [address] | | | PATHOLOGY | [address] [...] + + | [facility] DEPARTMENT OF | [address] | [place] [address] | | | PATHOLOGY | [address] | | | + + + + + | [facility] DEPARTMENT OF | [address] | [place] [address] | | | PATHOLOGY | [address] [...] [facility] | [address] | [place] [address] | | | PATHOLOGY | [address] | | | + + + + + | [facility] | [address] | [place] [address] | | | PATHOLOGY | [address] [...]
--- OUTSIDE RECORDS SUMMARY | ~2020-04-04 | XMS | Encounter Summary ---
Demographics + + + | Address | [address] | | | [place] [address] | + + + | Home Phone | | + + + | Preferred Language | Unknown | + + + | Marital Status | | + + + | Gnosticist Affiliation | 1076 | + + + | Race | Unknown | + + + | Ethnic Group | Unknown | + + + Author + + + | Author | [facility] | | | and [place] | + + + | Organization | [facility] | | [...] Team Providers + +------+ + | Care Aerosol Line Operator Name | Role | Phone | [...] [address] | [address] | | | | | [address] | [place] | | | | | [place] [address] | [id number] | | | | | [phone] | | | +--------+--------+ + + + [...] [place] | | | | | | [address] | | | | | | | | +--------+---------+ + + + documented as of this encounter Visit Diagnoses + + | Diagnosis | + + | Obstructive sleep apnea (adult) (pediatric) - Primary | + + documented in this encounter"
--- OUTSIDE RECORDS SUMMARY | ~2020-04-04 | XMS | Encounter Summary ---
Demographics + + + | Address | [address] | | | [place] [address] | + + + | Home Phone [...] Team Providers + +------+ + | Care Coffee Roaster Name | Role | Phone | [...] as of this encounter Progress Notes Interface, Tour Actor In - 04/28/2005 5:10 PM PDTClinic Date: [...] has been at her friend's house in [facility] and has been receiving IV antibiotics via [...] Benson Boone M.D. Lloyd Garcia M.D. / [id number] / [id number] / 88270 / 30000 Tdocumented in this encounter Plan of Treatment Not on filedocumented as of this encounter Visit Diagnoses Not on filedocumented in this encounter"
--- OUTSIDE RECORDS SUMMARY | ~2020-04-04 | XMS | Encounter Summary ---
Demographics + + + | Address | [address] | | | [place] [address] | + + + | Home Phone [...] Team Providers + +------+ + | Care Ophthalmic Technologist Name | Role | Phone | [...] [place] | | | | | | [place], [place] | | | | | | [address] | | | | | | [phone] | | | +--------+ + + + [...]
--- OUTSIDE RECORDS SUMMARY | ~2020-04-04 | XMS | Encounter Summary ---
Demographics + + + | Address | [address] | | | [place] [address] | + + + | Home Phone [...] Team Providers + +------+ + | Care Area Safety Manager Name | Role | Phone [...] | Procedures | [address] | [address] [place], | | | | | CONSULT TO | [place], [place] | [place] | | | | | ORTHOPEDICS | [address] | [address] | | | | | AND | Phone: | Phone: | | | | | REHABILITATI | [phone] | [phone] | | | | | ON | Fax: | Fax: | | | | | | [phone] | [phone] | +--------+--------+ + + + + Encounter Details +--------+---------+ + + + | Date | Type | Department | Care Team | Description | +--------+---------+ + + + | 04/10/ | Office | Orthopaedic Spine | Krishna, Vince, MD | Back pain (Primary | | 2010 | Visit | Center at [facility] [address] | [address] | Dx) | | | | [address] | [address] [place], | | | | | Mailcode: CH8N | [place] [address] | | | | | [facility] | [phone] | | | | | and Healing, | | | | | | Building | | | | | | Floor [place], [place] | | | | | | [address] | | | | | | [phone] | | | +--------+---------+ + + + [...]
--- OUTSIDE RECORDS SUMMARY | ~2020-04-04 | XMS | Encounter Summary ---
Demographics + + + | Address | [address] | | | [place] [address] | + + + | Home Phone [...] Providers + +------+ + | Care Forest Ecology Professor Name | Role | Phone | [...] of this encounter Progress Notes Interface, Ticket Agent In - 07/28/2006 5:01 AM PSTCLINIC DATE: [...] from earlier surgical intervention. Lloyd Garcia M.D. Senior Engineering Manager Orthopedics and Rehabilitation / [id number] / [id number] / 77048 / cc: Helio Noland M.D. [address], [place] [id number] signed by Interface, Ticket Agent In at 07/28/2006 5: 01 AM PSTInterface, Ticket Agent In - 07/28/2006 5:01 AM PSTCLINIC DATE: [...] weeks' time. Malcom Her M.D. / SALEEM [id number] / [id number] / 35285 / 22917 Tdocumented in this encounter Plan of Treatment Not on filedocumented as of this encounter Visit Diagnoses Not on filedocumented in this encounter"
--- OUTSIDE RECORDS SUMMARY | ~2020-04-04 | XMS | Encounter Summary ---
Demographics + + + | Address | [address] | | | [place] [address] | + + + | Home Phone [...] Team Providers + +------+ + | Care Hammer Smith Name | Role | Phone | + +------+ + | Travis Mcginnis MD | PCP | | + +------+ + Encounter Details +--------+ + + + + | Date | Type | Department | Care Team | Description | +--------+ + + + + | 02/20/ | Virginia Line Attendant | Orthopaedics at | Kalyan Arias MD | Hip replacement | | 2009 | | [facility] [address] | [address] | (Primary Dx) | | | | [address] | [facility] | | | | | Mailcode: PV430 | [facility] [place] | | | | | [facility] | [address] | | | | | [place], [place] | [phone] | | | | | [address] | | | | | | [phone] | | | +--------+ + + + [...]
--- OUTSIDE RECORDS SUMMARY | ~2020-04-04 | XMS | Encounter Summary ---
Demographics + + + | Address | [address] | | | [place] [address] | + + + | Home Phone [...] Team Providers + +------+ + | Care Blowing Weasand Name | Role | Phone | + [...]
--- OUTSIDE RECORDS SUMMARY | ~2020-04-04 | XMS | Encounter Summary ---
Demographics + + + | Address | [address] | | | [place] [address] | + + + | Home Phone [...] Providers + +------+ + | Care Oracle Sql Developer Name | Role | Phone | + +------+ + | Marta Jenkins CHIEF QUALITY OFFICER | PCP | | + +------+ [...] | Jamie Mailcode: [id number] [place], | | | | | [place], [place] | [place] [address] | | | | | [address] | | | | | | [phone] | | | +--------+ + + + [...]
--- OUTSIDE RECORDS SUMMARY | ~2020-04-04 | XMS | Encounter Summary ---
Demographics + + + | Address | [address] | | | [place] [address] | + + + | Home Phone [...] Providers + +------+ + | Care Family Assessment Worker Name | Role | Phone | [...] of this encounter Progress Notes Interface, Rn Chronic In - 04/28/2005 7:30 PM PDTClinic Date: [...] Mariella Camacho P.A.-C. Lloyd Garcia M.D. / [id number] / [id number] / [id number] / [id number] Tdocumented in this encounter Plan of Treatment Not on filedocumented as of this encounter Visit Diagnoses Not on filedocumented in this encounter"
--- OUTSIDE RECORDS SUMMARY | ~2020-04-04 | XMS | Encounter Summary ---
Demographics + + + | Address | [address] | | | [place] [address] | + + + | Home Phone [...] Providers + +------+ + | Care Bread Baker Name | Role | Phone | [...] | | | | | [address] | | | | | | [place], [place] | | | | | | [address] | | | | | | [phone] | | | +--------+ + + + [...] [place] | | | | | | [address] | | | | | | | | +--------+---------+ + + + documented as of this encounter Visit Diagnoses Not on filedocumented in this encounter
--- OUTSIDE RECORDS SUMMARY | ~2020-04-04 | XMS | Encounter Summary ---
Demographics + + + | Address | [address] | | | [place] [address] | + + + | Home Phone [...] Providers + +------+ + | Care Bulk Station Operator Name | Role | Phone | [...] as of this encounter Progress Notes Interface, Community Relations Rep In - 08/16/2006 1:10 AM PSTCLINIC DATE: [...] be requiring surgical intervention. Lloyd Garcia M.D. Dry Cleaner Helper of Orthopedics and Rehabilitation / [id number] / [id number] / [id number] / cc: Helio Noland M.D. Juan JoseJuan Jose [place], [place] [id number] signed by Interface, Community Relations Rep In at 08/16/2006 1: 10 AM PSTdocumented in this encounter Plan of Treatment Not on filedocumented as of this encounter Visit Diagnoses Not on filedocumented in this encounter"
--- OUTSIDE RECORDS SUMMARY | ~2020-04-04 | XMS | Encounter Summary ---
Demographics + + + | Address | [address] | | | [place] [address] | + + + | Home Phone [...] + + | Author | [facility] | | | and [place] | + + + | Organization | [facility] | | | [...] | | | | [place] | [phone] | | | | | [address] | | | | | | [phone] | | | +--------+ + + + [...] [place] | | | | | | [address] | | | | | | | [...]
--- OUTSIDE RECORDS SUMMARY | ~2020-04-04 | XMS | Encounter Summary ---
Demographics + + + | Address | [address] | | | [place] [address] | + + + | Home Phone [...] Team Providers + +------+ + | Care Liquor Grinding Mill Operator Name | Role | Phone [...] | | | | Mailcode: PV430 | [place], [place] | | | | | [facility] | [address] | | | | | [place], [place] | [phone] | | | | | [address] | | | | | | [phone] | | | +--------+ + + + [...]
--- OUTSIDE RECORDS SUMMARY | ~2020-04-04 | XMS | Encounter Summary ---
Demographics + + + | Address | [address] | | | [place] [address] | + + + | Home Phone [...] Team Providers + +------+ + | Care Dust Brush Assembler Name | Role | Phone [...] | unspecified | [address] | Rd [place], | | | | | whether | [place], [place] | [place] | | | | | generalized | [address] | [address] | | | | | or | Phone: | Phone: | | | | | localized, | [phone] | [phone] | | | | | pelvic | Fax: | Fax: | | | | | region and | [phone] | [phone] | | | | | thigh | [...] Pavilion | | | | | | [place], [place] | | | | | | [address] | | | | | | [phone] | | | +--------+---------+ + + + [...] by JORDY Germain. KALYAN COLBY MD [facility] [address] [place] [address] Mailcode: Pv430 [place] [address] Tesfaye Haskins PA-C - 10/14/2008 [...] is being worked up now by a informatica developer for this issue. OBJECTIVE: - On examination [...]
--- OUTSIDE RECORDS SUMMARY | ~2020-04-04 | XMS | Encounter Summary ---
Demographics + + + | Address | [address] | | | [place] [address] | + + + | Home Phone [...] Providers + +------+ + | Care Hog Operator Name | Role | Phone | + +------+ + | Marta Jenkins DIRECTOR OF NURSES REGISTRY | PCP | | + +------+ + [...] [address] | | | | | [place], [place] | [place] | | | | | [address] | [address] | | | | | [phone] | [phone] | | | | | | | [...]
--- OUTSIDE RECORDS SUMMARY | ~2020-04-04 | XMS | Encounter Summary ---
Demographics + + + | Address | [address] | | | [...] Providers + +------+ + | Care Starch Treating Assistant Name | Role | Phone | [...] as of this encounter Progress Notes Interface, Avionics Integration Engineer In - 06/19/2006 1:01 AM PDT [place] [facility] and [place] [address], [place] [address] FAX Department of Orthopaedics, [facility] [id number] October 15, 2001 Lloyd Garcia M.D. Department of Orthopedics and Rehabilitation/[facility] [id number] RE: SHELBY GALDAMEZ MR #: [id number] DOS: 10/15/[address] Desai: Thank you [...] Sincerely, Kalyan Wu M.D. TE / HS [id number] / [id number] / [id number] / [id number] cc: Chan Krishna M.D. Department of Orthopedics and Rehabilitation/[facility] OP-31 Helio Noland M.D. [address], [place] [id number] signed by Interface, Avionics Integration Engineer In at 06/19/2006 1: 01 AM PDTdocumented in this encounter Plan of Treatment Not on filedocumented as of this encounter Visit Diagnoses Not on filedocumented in this encounter"
--- OUTSIDE RECORDS SUMMARY | ~2020-04-04 | XMS | Encounter Summary ---
Demographics + + + | Address | [address] | | | [place] [address] | + + + | Home Phone [...] Team Providers + +------+ + | Care Horse Identifier Name | Role | Phone | + +------+ + PCP | Unavailable | + +------+ + Encounter Details +--------+ + + + + | Date | Type | Department | Care Team | Description | +--------+ + + + + | 11/22/ | Results | | Other, Faculty | | | 2003 | Only | | [phone] | | +--------+ + + + + [...] + + + | [facility] | [address] | [place] [address] | | | LAB-MICRO | | | [...] + + + | [facility] | [address] | [place] [address] | | | LAB-MICRO | | | [...] | + + + + + | [facility] | [address] | [place] [address] | | | LAB-MICRO | | | [...] | + + + + + | [facility] | [address] | [place] [address] | | | LAB-MICRO | | | [...] | + + + + + | [facility] | [address] | [place] [address] | | | LAB-MICRO | | | [...] | + + + + + | [facility] | [address] | [place] [address] | | | LAB-MICRO | | | [...] + + + | [facility] | [address] | [place] [address] | | | LAB-MICRO | | | | + + + + + documented in this encounter Visit Diagnoses Not on filedocumented in this encounter"
--- OUTSIDE RECORDS SUMMARY | ~2020-04-04 | XMS | Encounter Summary ---
Demographics + + + | Address | [address] | | | [place] [address] | + + + | Home Phone [...] Team Providers + +------+ + | Care Carcass Washer Name | Role | Phone | + +------+ + | Travis Mcginnis MD | PCP | | + +------+ + Encounter Details +--------+ + + + + | Date | Type | Department | Care Team | Description | +--------+ + + + + | 08/03/ | Hospital | Diagnostic Imaging | | | | 2009 | Encounter | Services at [facility] | | | | | | [address] | | | | | | [address]oxann [address] Luigi | | | | | | [facility] | | | | | | [place], [place] | | | | | | [address] | | | | | | [phone] | | | +--------+ + + + [...] + + + +---------+ + + | [place]-3 Fatty | Take by mouth. | | [...] of | | | | | | W4relbepek/superior | | | | | | corner, [...]
--- OUTSIDE RECORDS SUMMARY | ~2020-04-04 | XMS | Encounter Summary ---
Demographics + + + | Address | [address] | | | [place] [address] | + + + | Home Phone [...] + | Casandra Smith | ROBERTO | [place] | | + + + + + Care Team Providers + +------+ + | Care Sand Sifter Name | Role | Phone | + [...] | | | | Mailcode: PV430 | [place], [place] | not done yet | | | | [facility] | [address] | 07-18.) | | | | [place], [place] | [phone] | | | | | [address] | | | | | | [phone] | | | +--------+ + + + [...]
--- OUTSIDE RECORDS SUMMARY | ~2020-04-04 | XMS | Encounter Summary ---
Demographics + + + | Address | [address] | | | [place] [address] | + + + | Home Phone [...] Providers + +------+ + | Care Security Patrol Officer Name | Role | Phone | + +------+ + | rTavis Mcginnis MD | PCP | | + +------+ + Encounter Details +--------+ + + + + | Date | Type | Department | Care Team | Description | +--------+ + + + + | 01/01/ | Abstract | Infectious | Carolina Putnam | | | 2010 | | Diseases at [facility] | MEGAN [place]dy [address] | | | | | [address] | [address] | | | | | Loop Physician's | [place], [place] | | | | | [place], 3rd floor | [address] | | | | | [place], [place] | [phone] | | | | | [address] | | | | | | [phone] | | | +--------+ + + + [...] | SEDIMENTATI | 48 | mm/hr | [facility] | | | ON RATE | | [...] | + + + + + | [facility] | [address] | [place] [address] | | | [facility] [place] | | | | + + + + + documented in this encounter Visit Diagnoses Not on filedocumented in this encounter"
--- OUTSIDE RECORDS SUMMARY | ~2020-04-04 | XMS | Encounter Summary ---
Demographics + + + | Address | [address] | | | [place] [address] | + + + | Home Phone [...] +------+ + | Care Printed Circuit Boards Stripper Etcher Name | Role | Phone | + [...] | | | Surgery [address] | [place], [place] | | | | | [address] | [address] | | | | | Mailcode: [id number] | [phone] | | | | | [facility] | | | | | | [place], [place] | | | | | | [address] | | | | | | [phone] | | | +--------+ + + + [...] + + + | [facility] | [address] | [place] [address] | | | LABORATORY | | | [...] [place] | [address] | [place] [address] | | | PATHOLOGY | [address] | | | + + + + + | [facility] OF | [address] | [place] [address] | | | PATHOLOGY | [address] [...] DEPARTMENT OF | [address] | [place] [address] | | | PATHOLOGY | [address] | | | + + + + + | [facility] DEPARTMENT OF | [address] | [place] [address] | | | PATHOLOGY | [address] [...] DEPARTMENT OF | [address] | [place] [address] | | | PATHOLOGY | [address] | | | + + + + + | [facility] DEPARTMENT OF | [address] | [place] [address] | | | PATHOLOGY | [address] | | | + + + + + documented in this encounter Visit Diagnoses Not on filedocumented in this encounter
--- OUTSIDE RECORDS SUMMARY | ~2020-04-04 | XMS | Encounter Summary ---
Demographics + + + | Address | [address] | | | [place] [address] | + + + | Home Phone [...] Team Providers + +------+ + | Care Outboard Motorboat Operator Name | Role | Phone | [...] [address] | | | | | | [address] | | | | | | [address] | | | | | | [place], [place] | | | | | | [address] | | | | | | [phone] | | | +--------+ + + + [...]
--- OUTSIDE RECORDS SUMMARY | ~2020-04-04 | XMS | Encounter Summary ---
Demographics + + + | Address | [address] | | | [place] [address] | + + + | Home Phone [...] Providers + +------+ + | Care Legal Document Assistant Name | Role | Phone | [...] | Transcriptions | + + | Interface, Pancake Professional In - 09/19/2005 9:05 PM PST Date: | | 09/29/2003Attending Surgeon: Lloyd Garcia M.D.Strand Buncher Fine Wire(s): | | Benson Boone M.D.Preoperative Diagnosis:Right greater [...] Boone M.D.Lloyd | | Sierra Garcia.RT / [id number] / [id number] / [id number] / [id number]: 10/21/2003T: 10/22/2003 | |where she had a [...] | | | |RT / HS | |[id number] / [id number] / [id number] / [id number] | | | | | + + documented in this encounter Visit Diagnoses Not on filedocumented in this encounter"
--- OUTSIDE RECORDS SUMMARY | ~2020-04-04 | XMS | Encounter Summary ---
Demographics + + + | Address | [address] | | | [place] [address] | + + + | Home Phone [...] Team Providers + +------+ + | Care Living Nurse Name | Role | Phone | [...] | | | | Mailcode: PV430 | [facility] [place] | | | | | [facility] | [address] | | | | | [place], [place] | [phone] | | | | | [address] | | | | | | [phone] | | | +--------+ + + + [...]
--- OUTSIDE RECORDS SUMMARY | ~2020-04-04 | XMS | Encounter Summary ---
Demographics + + + | Address | [address] | | | [place] [address] | + + + | Home Phone [...] Team Providers + +------+ + | Care Feeder Tender Name | Role | Phone | [...] | [facility] at [facility] | MEGAN Reddy [address] | | | | | [address] | [address] | | | | | Loop Physician's | [place], [place] | | | | | [place], 3rd floor | [address] | | | | | [place], [place] | [phone] | | | | | [address] | | | | | | [phone] | | | +--------+ + + + [...]
--- OUTSIDE RECORDS SUMMARY | ~2020-04-04 | XMS | Encounter Summary ---
Demographics + + + | Address | [address] | | | [place] [address] | + + + | Home Phone [...] Team Providers + +------+ + | Care Language Arts Teacher Name | Role | Phone | [...] as of this encounter Progress Notes Interface, Business Support In - 07/22/2006 3:18 AM PDTCLINIC DATE: [...] that. Jason Castano M.A. TAYE / [place] [id number] / [id number] / [id number] / Tdocumented in this encounter Plan of Treatment Not on filedocumented as of this encounter Visit Diagnoses Not on filedocumented in this encounter"
--- OUTSIDE RECORDS SUMMARY | ~2020-04-04 | XMS | Encounter Summary ---
Demographics + + + | Address | [address] | | | [place] [address] | + + + | Home Phone [...] Providers + +------+ + | Care Light Truck Driver Name | Role | Phone | + +------+ + PCP | Unavailable | + +------+ + Encounter Details +--------+ + + + + | Date | Type | Department | Care Team | Description | +--------+ + + + + | 11/22/ | Results | Orthopaedics at | Peng Muro | | | 2003 | Only | [facility] [address] MD,PhD [address] | | | | | [address] | [address] | | | | | Mailcode: PV430 | [place], [place] | | | | | [facility] | [address] | | | | | [place], [place] | [phone] | | | | | [address] | | | | | | [phone] | | | +--------+ + + + [...]
--- OUTSIDE RECORDS SUMMARY | ~2020-04-04 | XMS | Encounter Summary ---
Demographics + + + | Address | [address] | | | [place] [...] Providers + +------+ + | Care Clinical Nurse Reviewer Name | Role | Phone | + [...] | [facility] at [facility] | MEGAN Reddy [address] | | | | | [address] | [address] | | | | | Loop Physician's | [place], [place] | | | | | [place], 3rd floor | [address] | | | | | [place], [place] | [phone] | | | | | [address] | | | | | | [phone] | | | +--------+ + + + [...] | SEDIMENTATI | 48 | mm/hr | SCIENTOLOGIST | | | ON RATE | | [...] | + + + + + | [facility] | [address] | [place] [address] | | | [facility] [place] | | | | + + + + + documented in this encounter Visit Diagnoses Not on filedocumented in this encounter"
--- OUTSIDE RECORDS SUMMARY | ~2020-04-04 | XMS | Encounter Summary ---
Demographics + + + | Address | [address] | | | [place] [address] | + + + | Home Phone [...] +------+ + | Marta Jenkins DIRECTOR OF DISTRICT OFFICE | PCP | | + +------+ + Encounter Details +--------+ + + + + | Date | Type | Department | Care Team | Description | +--------+ + + + + | 11/18/ | Abstract | Digestive Health | Clinic, Surgery | | | 2019 | | [place] [facility] [address] | | | | | | [address] | | | | | | Mailcode: [place] | | | | | | for Health and | | | | | | Healing, [address] | | | | | | [facility] [place] | | | | | | [address] | | | | | | [phone] | | | +--------+ + + + [...]
--- OUTSIDE RECORDS SUMMARY | ~2020-04-04 | XMS | Encounter Summary ---
Demographics + + + | Address | [address] | | | [place] [address] | + + + | Home Phone [...] Providers + +------+ + | Care Finance Specialist Name | Role | Phone | [...] [facility] | | | | | | [address] | | | | | | Loop Physician's | | | | | | [place], [address] [place] [address] | | | | | | [place], [place] | | | | | | [address] | | | | | | [phone] | | | +--------+ + + + [...] | + + + +---------+--------+ + | [place]-3 Fatty | Take by mouth. | | [...]
--- OUTSIDE RECORDS SUMMARY | ~2020-04-04 | XMS | Encounter Summary ---
Demographics + + + | Address | [address] | | | [place] [address] | + + + | Home Phone [...] Team Providers + +------+ + | Care Cellular Plastics Cutter Name | Role | Phone | + +------+ + PCP | Unavailable | + +------+ + Encounter Details +--------+ + + + + | Date | Type | Department | Care Team | Description | +--------+ + + + + | 07/27/ | Energy Project Manager | Orthopaedics at | Tesfaye Saenz | Osteoarthritis of | | 2007 | | [facility] [address] | [address] | Hip; Hip Pain | | | | [address] | | | | | | Mailcode: PV430 | | | | | | [facility] | | | | | | [place], [place] | | | | | | [address] | | | | | | [phone] | | | +--------+ + + + [...]
--- OUTSIDE RECORDS SUMMARY | ~2020-04-04 | XMS | Encounter Summary ---
Demographics + + + | Address | [address] | | | [place] [address] | + + + | Home Phone [...] Providers + +------+ + | Care Bag Bailer Name | Role | Phone | + [...] as of this encounter Progress Notes Interface, Cpo In - 08/28/2006 3:05 AM PSTCLINIC DATE: [...] to Dr. Gant. Benson Cooper M.D. / [id number] / [id number] / [id number] / [id number] C: 11/27/1999 kavita cc: Helio Noland M.D. [facility] [address] Lloyd Garcia M.D. Department of Orthopedics documented in this encounter Plan of Treatment Not on filedocumented as of this encounter Visit Diagnoses Not on filedocumented in this encounter"
--- OUTSIDE RECORDS SUMMARY | ~2020-04-04 | XMS | Encounter Summary ---
Demographics + + + | Address | [address] | | | [place] [address] | + + + | Home Phone [...] Team Providers + +------+ + | Care Loss Control Manager Name | Role | Phone [...] | unspecified | [address] | Rd [place], | | | | | whether | [place], [place] | [place] | | | | | generalized | [address] | [address] | | | | | or | Phone: | Phone: | | | | | localized, | [phone] | [phone] | | | | | pelvic | Fax: | Fax: | | | | | region and | [phone] | [phone] | | | | | thigh | | | | | | | Osteoarthrit | | | | | | | is of Hip | | | | | | | Procedures | | | | | | | MI TOTAL HIP | | | | | | | | | | | | | | ARTHROPLASTY | | | | | | | MI | | | | | | | RECONSTRUC | | | | | | | HIP | | | | | | | SOCKET,RESEC | | | | | | | FEM HEAD | | | | | | | MI REMOVAL | | | | | | | OF ISCHIAL | | | | | | | BURSA MI | | | | | | | [...] Pavilion | | | | | | [place], [place] | | | | | | [address] | | | | | | [phone] | | | +--------+---------+ + + + [...] surgeries scheduled to take place on the [place] at the [facility]: Surgeries scheduled in the [facility] ([address] [place] [address]): registration is located on the 4th floor of [facility] (Day Surgery). Surgeries scheduled in the [facility]: registration is located on the 9th floor. Surgeries scheduled in [facility]: registration is located on the 6th floor. Surgeries scheduled in the [facility]: registration is located i n the [facility] on the first floor. For surgeries scheduled to take place at the [facility]: registration is [...] If you use specialized medical equipment at [facility], please check with your provider before [...] surgeries scheduled to take place on the [place] at the [facility]: Surgeries scheduled in the [facility] ([address] [place] [address]): registration is located on the 4th floor of [facility] (Day Surgery). Surgeries scheduled in the [facility]: registration is located on the 9th floor. Surgeries scheduled in [facility]: registration is located on the 6th floor. Surgeries scheduled in the [facility]: registration is located i n the [facility] on the first floor. For surgeries scheduled to take place at the [facility]: registration is l [...] you use specialized medical equipment at h [facility], please check with your provider before [...] infection has s calvin been cleared with manager terminal antibiotics. In this time she has also [...] OF ACTION: see above PARQ: see above. [facility] umeunice in this encounter Plan [...] Performed At | + + + | [id number] Estimated GFR > 60 mL/min/1.73 sq m if non- | [facility] | | [place] [id number] Estimated GFR > 60 mL/min/1.73 sq m if | DEPARTMENT OF | | [place] GFR is estimated using the MDRD equation [...] | + + + + + | [facility] | [address] | [place] [address] | | | PATHOLOGY | [address] | | | + + + + + | [facility] | [address] | [place] [address] | | | PATHOLOGY | [address] [...] | + + + + + | [facility] | [facility] | [place] [address] | | | PATHOLOGY | [address] | | | + + + + + | [facility] | [address] [facility] | [place] [address] | | | PATHOLOGY | [address] [...] [facility] DEPARTMENT OF | [facility] | [place] [address] | | | PATHOLOGY | [address] | | | + + + + + | [facility] DEPARTMENT OF | [facility] | [place] [address] | | | PATHOLOGY | [address] [...] + + + + | PRODUCT | [id number] | | [facility] | | | UNIT [...] | + + + + + | [facility] | [address] [facility] | [place] [address] | | | PATHOLOGY | [address] | | | + + + + + | [facility] | [address] [place] [address] | [place] [address] | | | PATHOLOGY | [address] | | | + + + + + documented in this encounter Visit Diagnoses + + | Diagnosis | + + | Other specified pre-operative examination - Primary | + + documented in this encounter
--- OUTSIDE RECORDS SUMMARY | ~2020-04-04 | XMS | Encounter Summary ---
Demographics + + + | Address | [address] | | | [place] [address] | + + + | Home Phone [...] Team Providers + +------+ + | Care Preschool Lead Teacher Name | Role | Phone [...] as of this encounter Progress Notes Interface, Microbiology Teacher In - 07/22/2006 3:18 AM PDTCLINIC [...] that. Jason Castano M.A. TAYE / SALEEM [id number] / [id number] / [id number] / Tdocumented in this encounter Plan of Treatment Not on filedocumented as of this encounter Visit Diagnoses Not on filedocumented in this encounter"
--- OUTSIDE RECORDS SUMMARY | ~2020-04-04 | XMS | Encounter Summary ---
Demographics + + + | Address | [address] | | | [place] [address] | + + + | Home Phone [...] Providers + +------+ + | Care Development Educator Name | Role | Phone | [...] as of this encounter Progress Notes Interface, Chili Powder Mixer In - 05/17/2006 3:10 AM PDTCLINIC DATE: [...] at that point. Lloyd Garcia M.D. Hand I Thermal Cutter, Orthopedics and Rehabilitation / [id number] / [id number] / [id number] / [id number] cc: Ninfa Guillen M.D. [address] [place] [id number] signed by Interface, Chili Powder Mixer In at 05/17/2006 3:1 0 AM PDTInterface, Chili Powder Mixer In - 05/17/2006 3:10 AM PDTCLINIC DATE: [...] MD Lloyd Causey M.D. SAMANTHA / SALEEM [id number] / [id number] / [id number] / Tdocumented in this encounter Plan of Treatment Not on filedocumented as of this encounter Visit Diagnoses Not on filedocumented in this encounter"
--- OUTSIDE RECORDS SUMMARY | ~2020-04-04 | XMS | Encounter Summary ---
Demographics + + + | Address | [address] | | | [place] [address] | + + + | Home Phone [...] + +------+ + | Care Credit And Collections Representative Name | Role | Phone | [...] | | | | due to | [place], [place] | [place], | | | | | internal | [address] | [place] [address] | | | | | joint | Phone: | Phone: | | | | | prosthesis | [phone] | [phone] | | | | | ([facility]) | Fax: | Fax: | | | | | | [phone] | [phone] | +--------+--------+ + + + + Encounter [...] | | | | Loop Physician's | [place], [place] | internal joint | | | | [place], 3rd floor | [address] | prosthesis (HCC) | | | | [place], [place] | [phone] | (Primary Dx) | | | | [address] | | | | | | [phone] | | | +--------+---------+ + + + [...] DISEASES CLINIC FOLLOW UP Primary Care Physician: [address] [place] [address] Ms. Galdamez presents to Infectious Diseases Clinic [...] 18, a nd was therefore admitted to [facility] out of concern for R [...] an initial course of IV antibiotics. Ms. Galadmez was discharged in stable condition on 10/22/2010 to [facility] with OPAT & Orthopedic follow-up planned in [address] In OPAT follow-up on 11/09/2010 Ms. Galdmaez presented from home accompanied by her caregiver. [...] W-FE,OTHER MIN (CENTRUM ORAL) Take by mouth. [place]-3 Fatty Acids-Vitamin E (FISH OIL) 1,000 mg [...] follow up in Infectious Diseases Clinic in [place]. We are hap py to be consulted again should infectious complications arise. I spent a total of 20 minutes face to face with the patient and over 50% was time spent in counseling in which we discussed infection, antibiotics, duration of therapy, lab results, a nd follow-up planning. Carolina Putnam PA-C [facility] Department of Infectious Disease Outpatient IV Antibiotic Therapy Clinic (OPAT) Pager ID: [phone] [facility]. 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
--- OUTSIDE RECORDS SUMMARY | ~2020-04-04 | XMS | Encounter Summary ---
Demographics + + + | Address | [address] | | | [place] [address] | + + + | Home Phone [...] Providers + +------+ + | Care Marine Equipment Sales Engineer Name | Role | Phone | [...] | | | | Mailcode: [id number] | [place], [place] | | | | | [facility] | [address] | | | | | [place], [place] | [phone] | | | | | [address] | | | | | | [phone] | | | +--------+ + + + [...]
--- OUTSIDE RECORDS SUMMARY | ~2020-04-04 | XMS | Encounter Summary ---
Demographics + + + | Address | [address] | | | [place] [address] | + + + | Home Phone [...] Team Providers + +------+ + | Care Popcorn Candy Maker Name | Role | Phone [...] as of this encounter Progress Notes Interface, Shift Leader In - 04/28/2005 7:30 PM PDTClinic Date: [...] Mariella Camacho P.A.-C. Lloyd Garcia M.D. / [id number] / [id number] / [id number] / [id number] Tdocumented in this encounter Plan of Treatment Not on filedocumented as of this encounter Visit Diagnoses Not on filedocumented in this encounter"
--- OUTSIDE RECORDS SUMMARY | ~2020-04-04 | XMS | Encounter Summary ---
Demographics + + + | Address | [address] | | | [place] [address] | + + + | Home Phone [...] Providers + +------+ + | Care Global Vp Creative + Content Marketing Name | Role | Phone | [...] as of this encounter Progress Notes Interface, Consultant Dietitian In - 04/28/2006 3:06 AM PDTCLINIC DATE: 09/24/2002 ORTHOPEDIC CLINIC SUBJECTIVE: A 42-year-old obese female follows for right hip endstage degenerative joint disease. She returns to clinic today stating that her hip is bothering her again. Her last injection was 6 months ago in February 2002. It lasted approximately 5 months. She [facility]. She takes Celebrex, multivitamin, and uses [...] fluoroscopically-guided hip injections closer to home in [place], [place], and come here when she fails to respond to schedule her total hip replacement at that time. She seems to prefer to drive across the [place] for her care. Lloyd Garcia M.D. Signal Worker Helper, Orthopedics and Rehabilitation / [id number] / [id number] / [id number] / [id number] cc: Ninfa Guillen M.D. [address] [place], [place] [id number] signed by Interface, Consultant Dietitian In at 04/28/2006 3:0 6 AM PDTInterface, Consultant Dietitian In - 04/28/2006 3:06 AM PDTCLINIC DATE: [...] have to return all the way to [facility] from [place], [place]. Shruti Manjarrez MD AM / [id number] / [id number] / [id number] / [id number] cc: Ninfa Guillen M.D. [address] [place], [place] [id number] signed by Interface, Consultant Dietitian In at 04/28/2006 3:0 6 AM PDTdocumented in this encounter Plan of Treatment Not on filedocumented as of this encounter Visit Diagnoses Not on filedocumented in this encounter"
--- OUTSIDE RECORDS SUMMARY | ~2020-04-04 | XMS | Encounter Summary ---
Demographics + + + | Address | [address] | | | [place] [address] | + + + | Home Phone [...] Team Providers + +------+ + | Care Heel Washer Stringing Machine Operator Name | Role | Phone [...] Rd | | | | | | [place], [place] | | | | | | [address] | | | +--------+ + + + [...]
--- OUTSIDE RECORDS SUMMARY | ~2020-04-04 | XMS | Encounter Summary ---
Demographics + + + | Address | [address] | | | [place] [address] | + + + | Home Phone [...] Providers + +------+ + | Care Nutrition Faculty Member Name | Role | Phone [...] | | | Mailcode: PV430 | [place], [place] | | | | | [facility] | [address] | | | | | [place], [place] | [phone] | | | | | [address] | | | | | | [phone] | | | +--------+ + + + [...]
--- OUTSIDE RECORDS SUMMARY | ~2020-04-04 | XMS | Encounter Summary ---
Demographics + + + | Address | [address] | | | [place] [address] | + + + | Home Phone [...] Providers + +------+ + | Care Joint Finisher Name | Role | Phone | [...] | | Procedures | Rd | [address] [place], | | | | | CONSULT TO | [place], [place] | [place] [address] | | | | | ORTHOPEDICS | [address] | | | | | | AND [...] | | [address] | Roxann Ayala [place], | | | | | Mailcode: PV430 | [place] [address] | | | | | [facility] | | | | | | [place], [place] | | | | | | [address] | | | | | | [phone] | | | +--------+---------+ + + + [...] as of this encounter Progress Notes Interface, Receiving Distribution Station Operator In - 10/05/2006 2:33 AM PST [id number] CHAD Osei [id number] Clinic Date: 10/02/2006 Clinic: Orthopaedics Shelby Galdamez [...] Acevedo. Gino Baker M.D. KEE / SALEEM [id number] / [id number] / [id number] / [id number] cc: Quintin [place] Electronically signed by Gino [...]
--- OUTSIDE RECORDS SUMMARY | ~2020-04-04 | XMS | Encounter Summary ---
Demographics + + + | Address | [address] | | | [place] [address] | + + + | Home Phone [...] Team Providers + +------+ + | Care Yoga Coordinator Name | Role | Phone | [...] | | | | | R[place], | | | | | | [place] [address] | | | +--------+ + + + [...] | | Patient: SHELBY GALDAMEZ Med Rec: [id number] Sex F Bdate: 1960 | | Date/Time Data | | Entered Into [facility] | | Anesth PostOp | | Surgery Date [id number] 10/11/03 10:54 | | [id number] 10/06/03 10:47 | | [id number] 10/04/03 10:47 | | [id number] 10/01/03 11:25 | | [id number] 09/28/03 10:01 | | [id number] 09/27/03 11:35 | | [id number] 09/14/03 11:13 | | [id number] 08/17/03 10:51 | | Anesthesiologist SEBASTIAN MARIO [...]
--- OUTSIDE RECORDS SUMMARY | ~2020-04-04 | XMS | Encounter Summary ---
Demographics + + + | Address | [address] | | | [place] [address] | + + + | Home Phone [...] + + | Author | [facility] | | | and [place] | + + + | Organization | [facility] [...] Team Providers + +------+ + | Care Mechanical Planner Name | Role | Phone | [...] pain, | [address], | | | | | generalized | [place], [place] | [address] | | | | | Other | [address] [place] | [place], | | | | | symptoms | [place], [place] | [place] [address] | | | | | involving | [address] | Phone: | | | | | digestive | Phone: | [phone] | | | | | system([phone] | [phone] | Fax: | | | | | 9) Nausea | Fax: | [phone] | | | | | alone | [phone] | | | | | | Flatulence, | | | | | | | eructation, | | | | | | | and gas pain | | | | | | | Procedures | | | | | | | [place] UPPER | | | | | | | GI | | | | | | | ENDOSCOPY,DI | | | | | | | AGNOSIS [place] | | | | | | | UPPER GI | | | | | | | ENDOSCOPY,BI | | | | | | | OPSY [place] | | | | | | | COLONOSCOPY, | | | | | | | DIAGNOSTIC | | | | | | | [place] | | | | | | | [...] 2011 | | GASTROENTEROLOGY | [address], [place] | generalized (Primary | | | | [address] | [address] [place], [place] | Dx); Other symptoms | | | | [address] [place], [place] | [address] | involving digestive | | | | [address] | | system; Nausea | | | | [phone] | | alone; Flatulence, | | | [...] [place] | | | | | | [address] | | | | | | | [...]
--- OUTSIDE RECORDS SUMMARY | ~2020-04-04 | XMS | Encounter Summary ---
Demographics + + + | Address | [address] | | | [place] [address] | + + + | Home Phone [...] Providers + +------+ + | Care Production Lapping Machine Operator Name | Role | Phone | + +------+ + PCP | Unavailable | + +------+ + Encounter Details +--------+ + + + + | Date | Type | Department | Care Team | Description | +--------+ + + + + | // | Results | | Other, Faculty | | | 2003 | Only | | [phone] | | +--------+ + + + + [...] [facility] DEPARTMENT OF | [address] | [place] [address] | | | PATHOLOGY | [address] | | | + + + + + | [facility] DEPARTMENT OF | [address] | [place] [address] | | | PATHOLOGY | [address] [...] CENTER OF | [address] | [place] [address] | | | PATHOLOGY | [address] | | | + + + + + | [facility] OF | [address] | [place] [address] | | | PATHOLOGY | [address] [...] + + + | [facility] | [address] | [place] [address] | | | LABORATORY | | | [...] DEPARTMENT OF | [address] | [place] [address] | | | PATHOLOGY | [address] | | | + + + + + | [facility] DEPARTMENT OF | [address] | [place] [address] | | | PATHOLOGY | [address] [...] [facility] DEPARTMENT OF | [address] [facility] | [place] [address] | | | PATHOLOGY | [address] | | | + + + + + | [facility] DEPARTMENT OF | [address] | [place] [address] | | | PATHOLOGY | [address] [...] [facility] DE[facility] | [facility] | [place] [address] | | | PATHOLOGY | [address] | | | + + + + + | [place] DEPARTMENT OF | [address] | [place] [address] | | | PATHOLOGY | [address] [...] | [facility] | [address] [facility] | [place] [address] | | | PATHOLOGY | [address] | | | + + + + + | [facility] | [address] [place] [address] | [place] [address] | | | PATHOLOGY | [address] [...] | [facility] | [address] [facility] | [place] [address] | | | PATHOLOGY | [address] | | | + + + + + | [facility] | [facility] | [place] [address] | | | PATHOLOGY | [address] [...] DEPARTMENT OF | [address] | [place] [address] | | | PATHOLOGY | [address] | | | + + + + + | [facility] DEPARTMENT OF | [address] | [place] [address] | | | PATHOLOGY | [address] | | | + + + + + CREATININE, PLASMA (10/04/2003 6:15 AM PST) + +-------+ + + + | Component | Value | Ref Range | Performed | Pathologist | | | | | At | Signature | + +-------+ + + + | CREATININE | 0.8 | 0.6 - 1.1 mg/dL | [facility] | | | PLASMA | | [...] [facility] DEPARTMENT OF | [address] [facility] | [place] [address] | | | PATHOLOGY | [address] | | | + + + + + | [facility] DEPARTMENT OF | [address] [facility] | [place] [address] | | | PATHOLOGY | [address] [...] DEPARTMENT OF | [address] | [place] [address] | | | PATHOLOGY | [address] | | | + + + + + | [facility] DEPARTMENT | [address] | [place] [address] | | | PATHOLOGY | [address] [...] [facility] DEPARTMENT OF | [address] | [place] [address] | | | PATHOLOGY | [address] | | | + + + + + | [facility] DEPARTMENT OF | [address] | [place] [address] | | | PATHOLOGY | [address] [...] [facility] | [address] | [place] [address] | | | PATHOLOGY | [address] | | | + + + + + | [facility] | [address] | [place] [address] | | | PATHOLOGY | [address] | | | + + + + + documented in this encounter Visit Diagnoses Not on filedocumented in this encounter"
--- OUTSIDE RECORDS SUMMARY | ~2020-04-04 | XMS | Encounter Summary ---
Demographics + + + | Address | [address] | | | [place] [address] | + + + | Home Phone [...] Providers + +------+ + | Care Tube Balancer Name | Role | Phone | + [...] + | 03/08/ | Telephone | [facility] | Ladarius Martínez PA | Other | | 2016 | | SLEEP DISORDER [address] | [address] | | | | | [address] [place] | [place], [place] | | | | | [place] [address] | [address] | | | | | [phone] | | | +--------+ + + + [...] Miscellaneous Notes Telephone Encounter - Maegan Munoz, Carpenter And Joiner - 03/08/2016 1:09 PM PDTReceived hernan jacinto [...] and is in agreement with hernan boone. [facility] umented in this encounter Plan of Treatment +--------+---------+ + + + | Date | Type | Specialty | Care Team | Description | +--------+---------+ + + + | 05/23/ | Office | Pain Medicine | Xiang Sepulveda, | | | 2019 | Visit | | DO [address] | | | | | | [place] | | | | | | [id number] | | | | | | | | +--------+---------+ + + + documented as of this encounter Visit Diagnoses Not on filedocumented in this encounter"
--- OUTSIDE RECORDS SUMMARY | ~2020-04-04 | XMS | Encounter Summary ---
Demographics + + + | Address | [address] | | | [place] [address] | + + + | Home Phone [...] Providers + +------+ + | Care Education Director Name | Role | Phone | [...] Pavilion | | | | | | [place], [place] | | | | | | [address] | | | | | | [phone] | | | +--------+ + + + [...] | | | | | | obtained. Chip Separator AP and | | | | | [...] FINDINGS: | | | | | | Chip Separator images of the | | | | [...] | | | | | | obtained. Chip Separator AP and | | | | | [...] FINDINGS: | | | | | | Chip Separator images of the | | | | [...]
--- OUTSIDE RECORDS SUMMARY | ~2020-04-04 | XMS | Encounter Summary ---
Demographics + + + | Address | [address] | | | [place] [address] | + + + | Home Phone [...] Team Providers + +------+ + | Care Donation Worker Name | Role | Phone | [...] as of this encounter Progress Notes Interface, Rubber Vulcanizing Machine Operator In - 06/19/2006 1:01 AM PDT [facility] [place] [address] [place], [place] [address] FAX Department of Orthopaedics, [facility] [id number] September 16, 2001 Kalyan Wu M.D. Department of Orthopedics and Rehabilitation [facility] RE: SHELBY GALDAMEZ MR #: [id number] DOS: 09/16/2001 Dear Nasir: I am referring [...] contact me directly. Sincerely, Lloyd Garcia M.D. Varnish Maker Helper Orthopedics and Rehabilitation / [id number] / [id number] / [id number] / [id number] C: 10/02/2001 [facility] cc: Helio Mann M.D. P.OJuan Jose [address] [id number] signed by Interface, Rubber Vulcanizing Machine Operator In at 06/19/2006 1: 01 AM PDTdocumented in this encounter Plan of Treatment Not on filedocumented as of this encounter Visit Diagnoses Not on filedocumented in this encounter"
== END 2020-04-04 19:00 | disposition left against medical advice (07) ==
LOC: ED 17:50
DX: Z53.21 Procedure and treatment not carried out due to patient leaving prior to being seen by health care provider (principal)

== ENCOUNTER 2020-04-27 08:47 | Inpatient (IN) | payer OTHER ==
[~2020-04-27] VITALS: Ht 162.6 cm; Wt 135.6 kg
--- OUTSIDE RECORDS SUMMARY | ~2020-04-27 | XMS | Encounter Summary ---
Demographics + + + | Address | [address] | | | [place] [address] | + + + | Home Phone | | + + + | Preferred Language | Unknown | + + + | Marital Status | Single | + + + | Islam Affiliation | PRE | + + + | Race | White | + + + | Ethnic Group | Not or | + + + Author + + + | Author | [facility] | + + + | Organization | [facility] | + + + | Address | Unknown | + + + | Phone | Unavailable | + + + Support + + + + + | Name | Relationship | Address | Phone | + + + + + | Casandra Smith | ROBERTO | [place] | | + + + + + Care Team Providers + +------+ + | Care Stage Director Name | Role | Phone | + +------+ + | No Pcp Per Patient | PCP | Unavailable | + +------+ + Encounter Details +--------+ + + + + | Date | Type | Department | Care Team | Description | +--------+ + + + + | 12/16/ | Hospital | Diagnostic | | | | 2008 | Encounter | Radiology at [facility] | | | | | | [address] | | | | | | [address] [facility] | | | | | | [place], [address] Floor | | | | | | [place], [place] | | | | | | [address] | | | | | | [phone] | | | +--------+ + + + + Social History + + + +--------+------+ | Tobacco Use | Types | Packs/Day | Years | Date | | | | | Used | | + + + +--------+------+ | Current Every Day | Cigarettes | 1 | 41 | | | Smoker | | | | | + + + +--------+------+ + + +---------+ + | Alcohol Use | Drinks/Week | oz/Week | Comments | + + +---------+ + | Yes [...] + + documented as of this encounter Medications at Time of Discharge + + + +---------+--------+ + | Medication | Sig | Dispensed | Refills | Start | End Date | | | | | | Date | | + + + +---------+--------+ + | ALBUTEROL SULFATE | inhale the contents | | 0 | | | | 200 MCG CAPS WITH | of one capsule by | | | | | | INHALATION DEVICE | inhalation route | | | | | | | every 4 hours as | | | | | | | needed | | | | | + + + +---------+--------+ + documented as of this encounter Plan of Treatment Not on filedocumented as of this encounter Procedures + +--------+ + + + | Procedure Name | Priori | Date/Time | Associated Diagnosis | Comments | | | ty | | | | + +--------+ + + + | X-RAY PELVIS 1 VIEW | Routin | 12/16/2008 | JUAN DAVID (Total Hip | Results for this | | | e | 1:36 PM | Arthroplasty) | procedure are in the | | | | PDT | | results section. | + +--------+ + + + documented in this encounter Results X-RAY PELVIS 1 VIEW (12/16/2008 1:36 PM PDT) + + + + + + | Component | Value | Ref Range | Performed | Pathologist | | | | | At | Signature | + + + + + + | PELVIS 1 | Pelvis one view and | | | | | VIEW | right hip 2 views | | | | | | 12/16/08Clinical: | | | | | | pain.Comparison: | | | | | | 10/14/08Findings:Right | | | | | | hip: Noncemented right | | | | | | total hip arthroplasty | | | | | | is again notedwith | | | | | | greater trochanteric | | | | | | clamp, screw and | | | | | | cerclage wire | | | | | | fixation.The hardware is | | | | | | intact. There is | | | | | | unchanged superior | | | | | | displacement ofthe | | | | | | greater trochanteric | | | | | | fragment, as | | | | | | before.Scattered | | | | | | punctate bone or | | | | | | metallic fragments are | | | | | | seen adjacent tothe | | | | | | medial aspect of the sub | | | | | | trochanteric | | | | | | femur.Pelvis:The pubis | | | | | | symphysis and right | | | | | | sacroiliac alignment | | | | | | areanatomic. There is | | | | | | no evidence of | | | | | | loosening.IMPRESSION:Int | | | | | | act right total hip | | | | | | arthroplasty and | | | | | | fixation of the | | | | | | proximalright femur with | | | | | | greater trochanteric | | | | | | clamp, screw and | | | | | | cerclagewires. No | | | | | | change alignment or | | | | | | evidence of hardware | | | | | | loosening.I have | | | | | | personally viewed this | | | | | | procedure/exam and | | | | | | reviewed this | | | | | | report.Author: EDGARDO | | | | | | Malcom ROBERTReviewer: | | | | | | EDGARDO ROBERT M.D.STATUS | | | | | | FINAL / Dr. REYNOSO | | | | | | BLAKE PENDING FINAL | | | | | | APPROVAL / Dr. REYNOSO | | | | | | YESICASTATUS PRELIMINARY - | | | | | | UNSIGNED / Dr. REYNOSO | | | | | | YESICA | | | | + + + + + + + + | Specimen | + + | | + + + +---------+ + + | Performing | Address | City/State/Zipcode | Phone Number | | Organization | | | | + +---------+ + + | [facility] | | | | | RADIOLOGY | | | | + +---------+ + + documented in this encounter Visit Diagnoses + + | Diagnosis | + + | JUAN DAVID (total hip arthroplasty) Hip joint replacement by other means | + + documented in this encounter"
--- OUTSIDE RECORDS SUMMARY | ~2020-04-27 | XMS | Encounter Summary ---
Demographics + + + | Address | [address] | | | [place] [address] | + + + | Home Phone | | + + + | Preferred Language | Unknown | + + + | Marital Status | Single | + + + | Spiritism Affiliation | PRE | + + + | Race | White | + + + | Ethnic Group | Not or | + + + Author + + + | Author | [facility] | + + + | Organization | [facility] | + + + | Address | Unknown | + + + | Phone | Unavailable | + + + Support + + + + + | Name | Relationship | Address | Phone | + + + + + | Casandra Smith | ROBERTO | [place] | | + + + + + Care Team Providers + +------+ + | Care Floatlight Loading Supervisor Name | Role | Phone | + +------+ + PCP | Unavailable | + +------+ + Encounter Details +--------+ + + + + | Date | Type | Department | Care Team | Description | +--------+ + + + + | 06/11/ | Results | Orthopaedics at | Lloyd Garcia MD | | | 2005 | Only | [facility] [address] | | | | [address] | | | | | | Mailcode: [id number] | | | | | | [facility] | | | | | | [place], [place] | | | | | | [address] | | | | | | [phone] | | | +--------+ + + + + Social History + + + +--------+------+ | Tobacco Use | Types | Packs/Day | Years | Date | | | | | Used | | + + + +--------+------+ | Current Every Day | Cigarettes | 0.5 | | | | Smoker | | | | | + + + +--------+------+ + + +---------+ + | Alcohol Use | Drinks/Week | oz/Week | Comments | + + +---------+ + | Yes | | | | + + +---------+ + + + [...] + +--------+ + + + | X-RAY INJ JOINT HIP | Routin | 06/11/2006 | | Results for this | | KNEE SHOULDR | e | 3:29 PM | | procedure are in the | | | | PDT | | results section. | + +--------+ + + + documented in this encounter Results INJ JOINT HIP KNEE SHOULDR (06/11/2006 3:29 PM PDT) + + + + + + | Component | Value | Ref Range | Performed | Pathologist | | | | | At | Signature | + + + + + + | INJ JOINT | Radiologist 1: TRIPP, | | | | | HIP KNEE | Raegan HERRERA M.D.EXAM: | | | | | SHOULDR | FLUOROSCOPIC GUIDANCE | | | | | | AND INJECTION OF THE | | | | | | RIGHT HIP COMPARISON: | | | | | | 05/23/06 and prior | | | | | | arthrogram 12/18/05 | | | | | | HISTORY: Chronic hip | | | | | | pain PROCEDURE:The | | | | | | benefits and risks of | | | | | | the procedure were | | | | | | explained to thepatient | | | | | | and all questions were | | | | | | answered. Written | | | | | | informed consentwas | | | | | | obtained. The patient | | | | | | was placed supine on the | | | | | | fluoroscopytable and | | | | | | the skin was prepped and | | | | | | draped in the usual | | | | | | sterilefashion. 2% | | | | | | lidocaine was used for | | | | | | local anesthesia. A 22 | | | | | | gaugespinal needle was | | | | | | placed into the joint | | | | | | from | | | | | | anterolateralapproach | | | | | | and 2 cc of Hypaque was | | | | | | injected to | | | | | | confirmintra-articular | | | | | | position. 5 mL of | | | | | | bupivacaine (5 mg/cc) | | | | | | and 2 ccof Depo-Medrol | | | | | | (40mg/cc) was then | | | | | | injected into the | | | | | | joint.Injection of an | | | | | | additional 2 cc of | | | | | | contrast | | | | | | reconfirmedintra-articul | | | | | | ar position following | | | | | | injection, with | | | | | | contrastoutlining the | | | | | | base of femoral neck. | | | | | | The needle was removed. | | | | | | Nocomplications were | | | | | | present. FINDINGS: | | | | | | Chronic postsurgical | | | | | | changes and heterotopic | | | | | | bone are unchanged | | | | | | inappearance. There is | | | | | | chronic degenerative | | | | | | joint disease | | | | | | withprominent spurring | | | | | | at the base of the | | | | | | femoral head. The | | | | | | joint isnarrowed | | | | | | medially. Contrast | | | | | | outlined the collar of | | | | | | osteophytes at the base | | | | | | of thefemoral head, | | | | | | confirm intra-articular | | | | | | position. Patient did | | | | | | not appreciate any | | | | | | significant immediate | | | | | | pain reliefafter | | | | | | completion of the | | | | | | procedure. IMPRESSION: | | | | | | 1. Technically | | | | | | successful injection of | | | | | | the right hip with 5 cc | | | | | | (5mg per cc) of | | | | | | bupivicaine and 2 cc of | | | | | | Depo-Medrol (40 mg per | | | | | | cc).2. The patient did | | | | | | not not report any | | | | | | significant pain relief | | | | | | atcompletion of the | | | | | | procedure display | | | | | | confirmation | | | | | | ofintra-articular | | | | | | injection.3. Chronic | | | | | | postsurgical and | | | | | | advanced degenerative | | | | | | deformity ofthe hip. | | | | + + + [...]
--- OUTSIDE RECORDS SUMMARY | ~2020-04-27 | XMS | Encounter Summary ---
Demographics + + + | Address | [address] | | | [place] [address] | + + + | Home Phone | | + + + | Preferred Language | Unknown | + + + | Marital Status | Single | + + + | Mormon Affiliation | PRE | + + + | Race | White | + + + | Ethnic Group | Not or | + + + Author + + + | Author | [facility] | + + + | Organization | [facility] | + + + | [...] Team Providers + +------+ + | Care Eeler Name | Role | Phone | + +------+ + | No Pcp Per Patient | PCP | Unavailable | + +------+ + Reason for Visit + + + | Reason | Comments | + + + | Radiation oncology | | | AND/OR radiotherapy | | + + + AUTH/CERT +--------+--------+ + + + + | Status | Reason | Specialty | Diagnoses / | Referred By | Referred To | | | | | Procedures | Contact | Contact | +--------+--------+ + + + + | Closed | | | | | [facility] | | | | | | | Orthopaedics | | | | | | | [address] | | | | | | | [address] | | | | | | | Jamie [address] | | | | | | | [place] | | | | | | | [place] | | | | | | | (MNP/OLD [facility]) | | | | | | | [place], | | | | | | | [place] [address] | +--------+--------+ + + + + Encounter Details +--------+---------+ + + + | Date | Type | Department | Care Team | Description | +--------+---------+ + + + | 09/08/ | Office | Radiation Oncology | Kevin Arenas MD | Heterotopic Tissue | | 2007 | Visit | at [facility] [address] | [address] | (Primary Dx) | | | | [address] | [place], [place] | | | | | [place], [address] floor | [address] | | | | | [place], [place] | [phone] | | | | | [address] | | | | | | [phone] | | | +--------+---------+ + + + Social History + + [...] documented as of this encounter Progress Notes Kevin Arenas Md - 09/08/2008 5:23 PM PSTI performed a history and physical examination of the patient and discussed her management with the resident. I reviewed the resident s note and agree with the documented findings and plan of care. I told her the goals of radi ation therapy and the potential side effects. We will treatment her today. KEVIN ARENAS MD [facility] RADIATION MEDICINE [facility] [place] [address] r Miller - 09/08/2008 2:21 PM PST RADIATION ONCOLOGY CONSULTATION Requesting Physician: Dr. Colby CHIEF COMPLAINT: Heterotopic ossification of right hip IDENTIFICATION: Shelby Galdamez is a 48 year old female now POD#2 s/p right JUAN DAVID, bone grafting, and HO excis ion. We have been asked to see her for an opinion on prophylactic radiation therapy to prev ent future heterotopic ossification. HPI: Ms. Galdamez is a 48 y/o female with a history of osteoarthritis who first underwent a cheilec jadon of her right hip in 08/02 with a greater trochanter osteotomy that unfortunately develo ped non-union. She underwent ORIF of this non-union and developed a MRSA infection requirin g multiple I&D s ultimately requiring wound vac placement and long-term antibiotics. She was seen by Dr. Colby of Ortho in April for significant pain associated with her hip with di fficulty walking. She was using a cane and ambulating with great difficulty at that time se condary to the pain. 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 Ria re femoral-acetabular osteoarthritis was noted as well. Given these findings, Dr. Colby felt she was a candidate for JUAN DAVID and he took her to the OR yesterday, 09/06/08, for a right total hip arthroplasty and excision of heterotopic ossification along with ORIF with bone graftin g of her right greater trochanter non-union. She is now POD#1 from this procedure and we perez ve been asked to see her for an opinion on prophylactic radiation therapy to prevent future heterotopic ossification. She is doing well following her surgery. She had an episode of desaturation last night whi ch has stabilized as has her blood pressure. Her pain is under control with medications at this time. PMH: Past Medical History Diagnosis Date Asthma Abnormal Reflex gag Acid Reflux SOB (Shortness of Breath) Morbid Obesity HTN HLD (Hyperlipidemia) Nephrolithiasis Osteoarthritis of Hip Unspecified Calcification and Ossification right hip PSH: Past Surgical History Procedure Date Dislocated hip Hx cholecystectomy Hx hysterectomy Hx tonsil and adenoidectomy Hx section Hx surgery right pinky finger Hx knee surgery X2 Hx appendectomy Hx pharynx surgery FAMILY HISTORY: Family History Problem Relation Cancer Mother unknown type Cancer Father unknown type Cancer Maternal Uncle unknown type Cancer Maternal Aunt unknown type SOCIAL HISTORY: History Social History Marital Status: Single Spouse Name: N/A Number of Children: N/A Years of Education: N/A Occupational History Not on file. Social History Main Topics Tobacco Use: Yes -- 1.0 packs/day for 41 years Alcohol Use: Yes rare social Drug Use: Yes marijuana, no IVDU Sexually Active: Not on file Other Topics Concern Not on file Social History Narrative No narrative on file ALLERGIES: Allergies Allergen Reactions Lipitor (Atorvastatin Calcium) Sulfa (Sulfonamides) Gives intestinal flu Adhesive Tape Rash MEDICATIONS: Current hospital medications: acetaminophen (aka TYLENOL) tablet 650 mg, 650 mg, Oral, EVER Y 4 HOURS, ALEKS CHISHOLM albuterol (aka PROVENTIL, VENTOLIN) 90 mcg/Actuation inhaler 2 Puff, 2 Puff, Inhalation, EV JAZMINE 4 HOURS NEEDED, TYRONE COLBY aspirin EC tablet 325 mg, 325 mg, Oral, TWICE DAILY, ALEKS CHISHOLM bisacodyl (aka DULCOLAX) suppository 10 mg, 10 mg, Rectal, DAILY NEEDED, ALEKS CHISHOLM cyclobenzaprine (aka FLEXERIL) tablet 10 mg, 10 mg, Oral, TWICE DAILY, ALEKS CHISHOLM dextrose 5%-NaCl 0.45%-KCl 20 mEq/L IV infusion, 100 mL/hr, Intravenous, CONTINUOUS, ALEKS CHISHOLM hydrochlorothiazide (aka HYDRODIURIL) capsule 12.5 mg, 12.5 mg, Oral, DAILY, MUKESHGELALEKS HYDROmorphone (aka DILAUDID) injection 1 mg, 1 mg, Intravenous, EVERY 2 HOURS NEEDED, ALEKS ANDREW lisinopril (aka PRINIVIL) tablet 20 mg, 20 mg, Oral, DAILY, MUKESHGEL, ALEKS lovastatin (aka MEVACOR) tablet 10 mg, 10 mg, Oral, EVERY EVENING, KEGEL, ALEKS magnesium hydroxide (aka MILK OF MAGNESIA) suspension 30 mL, 30 mL, Oral, EVERY 8 HOURS NEEDED, KEGEL, ALEKS metoclopramide (aka REGLAN) injection 10-30 mg, 10-30 mg, Intravenous, EVERY 4 HOURS NEE DED, ALEKS CHISHOLM NaCl 0.9 % 1,000 mL IV, , Intravenous, CONTINUOUS, PACHECO EWING naloxone (aka NARCAN) injection, , Intravenous, NEEDED, ALEKS CHISHOLM naloxone (aka NARCAN) injection, , Intravenous, NEEDED, MUKESHGEL, ALEKS oxycodone immediate release (aka ROXICODONE) tablet 5-15 mg, 5-15 mg, Oral, EVERY 4 HOURS A S NEEDED, MUKESHGEL, ALEKS ranitidine (aka ZANTAC) tablet 150 mg, 150 mg, Oral, TWICE DAILY, MUKESHGELALEKS senna-docusate (aka SENOKOT S) 8.6-50 mg 2 Tab, 2 Tab, Oral, TWICE DAILY, ALEKS CHISHOLM No current outpatient prescriptions on file. REVIEW OF SYSTEMS: A full 12-point ROS was completed with the patient which was negative except as reported in HPI, PMH and PSH. PHYSICAL EXAM: Vitals: Stable Pain Score: 8/10 General: Obese female in mild distress encountered lying on a stretcher HEENT: NC/AT, sclera anicteric, MMM, no palpable supraclavicular, cervical, submandibular, submental LAD, thyroid non-palpable CV: RR, no m/r/g Pulm: CTAB, no w/r/r Abd: soft, NT/ND, NABS, no masses, no HSM, no inguinal LAD Ext: 2+ DP b/l, no c/c/e, warm well-perfused. Right hip lateral dressing is c/d/i without drains. No erythema noted. Neuro: CN II-XII intact, PERRLA, EOMI, 5/5 strength b/l, sens equal, intact b/l, gait not o bserved Musc: No spinous/paraspinous tenderness, no tenderness over b/l hips, no tenderness over P SIS b/l LABORATORY: Lab Results Lab Test Name Results Date/Time NA 135 09/07/08 K 3.6 09/07/08 CL 103 09/07/08 BICARB 28 09/07/08 BUN 2 09/07/08 CR 0.61 09/07/08 GLU 131 09/07/08 CA 7.9 09/07/08 DIAGNOSIS: POD#2 s/p right JUAN DAVID, bone grafting, and HO excision KARNOFSKY SCORE: 40 RECOMMENDATIONS: Shelby Galdamez is a 48 y.o. 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 Given her history of non-union, Indomethacin is not a good option to prevent future HO formation. She is a cand idate for radiation therapy. We fully discussed the risks/benefits of radiation with her to day and consent was obtained, signed, and placed on the chart. We plan to simulate her toda y with a plan for blocking of her bone graft material and components to the extent this is p ossible without compromising her prophylaxis. We will then deliver 7 Gy to her hip this aft minda. No formal follow-up with radiation oncology is necessary as she will be followed ve ry closely by Ortho. This patient was seen, examined and discussed with Dr. Kevin Arenas who agrees with this a ssessment and plan. Thank you for the opportunity to participate in the care of this pleasant patient. Please contact us should you have any questions or concerns. 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
--- OUTSIDE RECORDS SUMMARY | ~2020-04-27 | XMS | Encounter Summary ---
Demographics + + + | Address | [address] | | | [place] [address] | + + + | Home Phone | | + + + | Preferred Language | Unknown | + + + | Marital Status | Single | + + + | Jew Affiliation | PRE | + + + | Race | White | + + + | Ethnic Group | Not or | + + + Author + + + | Author | [facility] | + + + | Organization | [facility] | + + + | Address [...] Team Providers + +------+ + | Care Sexton Helper Name | Role | Phone | + +------+ + PCP | Unavailable | + +------+ + Reason for Visit + + + | Reason | Comments | + + + | Follow-up encounter | | + + + Office Visit - E/M Services (Routine) +--------+--------+ + + + + | Status | Reason | Specialty | Diagnoses / | Referred By | Referred To | | | | | Procedures | Contact | Contact | +--------+--------+ + + + + | Closed | | Orthopedic | Diagnoses | Curtis, | Armando Faculty | | | | Surgery / | | Quintin I | [address] | | | | Orthopedics | Osteoarthros | [place] | [facility] | | | | | is, | MEDICAL | Loop | | | | | unspecified | CLINIC [address] | Mailcode: | | | | | whether | [address] | [id number] | | | | | generalized | [place], [place] | [facility] | | | | | or | [address] | [address] | | | | | localized, | | [place], [place] | | | | | pelvic | | [address] | | | | | region and | | Phone: | | | | | thigh | | [phone] | | | | | Intervertebr | | Fax: | | | | | al lumbar | | [phone] | | | | | disc | | | | | | | disorder | | | | | | | with | | | | | | | myelopathy, | | | | | | | lumbar | | | | | | | region | | | | | | | Ostorthros | | | | | | | UNS GEN/LOC | | | | | | | PE | | | | | | | INTERVERT | | | | | | | LUMB DISC | | | | | | | D/O M | | | +--------+--------+ + + + + Encounter Details +--------+---------+ + + + | Date | Type | Department | Care Team | Description | +--------+---------+ + + + | 05/23/ | Office | Orthopaedics at | Lloyd Garcia MD | Osteoarthritis of | | 2005 | Visit | [address] [address] | | Hip; Hip Pain | | | | [address] | | | | | | Mailcode: [id number] | | | | | | [facility] | | | | | | [place], [place] | | | | | | [address] | | | | | | [phone] | | | +--------+---------+ + + + [...] documented as of this encounter Progress Notes Lloyd Garcia - 05/27/2006 12:51 AM PDTClinic Date: 05/23/2004 Orthopedic History: This is a 46-year-old woman who was last seen by me on February 10, 2004, with a healed right lateral hip wound infection after cheilectomy for right hip arthritis followed by ORIF of loss of reduction of the greater trochanter followed by a postoperative wound infection. Her most recent surgery was closure of her wound, over drained on October 08, 2003. She is referred back by Dr. Baker who has followed her in the interim for consideration of a a right total hip arthroplasty. She had 9 days of complete pain relief from an arthrogram with 40 mg of depo-medrol and is wondering if a stronger dose could be used to prolong pain relief. She in no longer using her brace, but does ambulate with a cane. She rates her pa in at 9/10 and requires narcotics. Denies fever, chills or drainage from wound. She is on d oxycycline for an ear infection. Physical Examination General: An obese 220-pound woman standing 5 feet tall and pain rated at 9/10 in severity. She is afebrile. Her right hip wound is completely healed. Range of motion 0-100 flexion, 30 abduction, addu ction, internal and external rotation each - with pain at the extremes.There is no fluctuanc e or erythema. There is no significant tenderness. Severe gluteus medius limp. Most recent [facility] Laboratory Studies: Normal C-reactive protein at 0.5 (02/10/04), normal [facility] te cell count at 9.4 & erythrocyte sedimentation rate was 13 which is also normal (11/07/05). Funga l, AFB and bacterial stains and cultures from 11/23/05 all neagtive. Xrays: HIP 2 VIEWS RIGHT Date Value Low High Status 05/23/2006 Final Value: Radiologist 1: Raegan ALMAGUER M.D.-Radiologist 2: BLANCA MATTSON STUDY: Right hip three views, AP and lateral COMPARISON: 12/18/05 DISCUSSION: There are advanced degenerative changes of the right hip, with medial join t space narrowing and sclerosis. There is extensive heterotopic bone formation laterally. T his is unchanged from prior. There are no bony fractures. The joint space of the left hip i s intact. The sacroiliac joints are maintained. IMPRESSION: 1. Advanced degenerative disease of the right hip. 2. Extensive hete rotopic bone formation about the right hip, unchanged from prior. ARTHROGRAM HIP RT (no units) Date Value Low High Status 12/18/2005 Final Value: Radiologist 1: Raegan ALMAGUER M.D.-Radiologist 2: ANTIONETTE IRBY STUDY: ARTHROGRAM AND INJECTION OF RIGHT HIP 12/18/2005 COMPARISON: NONE HISTORY: Right hip pain. PROCEDURE: The benefits and risks of the procedure were explained to the patient and all questions were answered. Written informed consent was obtained. The patient was placed supine on the fluoroscopy table and the skin was prepped and draped in the usual sterile fa shion. 1% lidocaine was used for local anesthesia. The medial approach was initially chose n, with entrance into the ileo psoas bursa. The patient was repositioned in the steep left posterior oblique position. A 22 gauge spinal needle was placed into the joint and 4 mL of H ypaque was injected to confirm intra-articular location. 5 mL of bupivacaine (5 mg/mL) and 1 mL of Depo-Medrol (40mg/mL) was then injected into the joint. The needle was removed. N o complications were present. Dr. Almaguer was present for the entire procedure DISCUSSION: There is severe degenerative joint disease of the right hip, with joint space narrowing and subchondral sclerosis. Heterotopic ossification is again seen. Initial i mages demonstrate contrast within the iliopsoas bursa. After patient repositioning and need le reinsertion, the needle was confirmed within the joint space. Arthrographic images demons trate flow of contrast around the femoral head. The joint space is slightly improved from t he prior study.The patient reported significant improvement in right hip pain after injecti on of the local anesthetic/steroid, from a preprocedural level of 10/10 to a postprocedural level of 1 to 2/10. IMPRESSION: Technically successful injection of right hip. The patient's right hip p ain improved significantly following the procedure. PELVIS 1 VIEW (no units) Date Value Low High Status 11/07/2005 Final Value: Radiologist 1: MOSHE FLOWERS M.D.-Radiologist 2: MOSHE FLOWERS M.D. STUDY: A.P. pelvis COMPARISON: 11/18/03 FINDINGS: There is chronic deformity of the right proximal femur from prior greater trochanteric osteotomy, removal of hardware and osteomyelitis. The changes of osteomyeliti s have resolved. Heterotopic ossification proximal to the femur has increased and matured. Medial joint space narrowing, subchondral sclerosis and osteophyte formation are again n oted in the right hip. The left hip, symphysis pubis and SI joints are maintained. IMPRESSION: 1. Radiographically healed osteomyelitis and chronic postoperative changes of the proximal right femur. Greater heterotopic ossification. 2. Stable medial osteoart hritis of right hip. Assessment: Clinically healed left postoperative hip wound with no evidence of active infec tion but significant degenerative joint disease and abductor deficiency. Disposition: I have discussed the risks of total hip arthroplasty including return of her o ld infection or developing a new infection, increased risk of dislocation and failure to no rmalize her gait due to the likely uncrrectable chronic detachment of her greater trocanter and increased heterotopic bone formation makining it likely that post-op range of motion wou ld be no better, and quite possibly worse. Additionally if she had any of these complicatio ns she may be left with the need for a resection arthroplasty. Given these risks, and her p resenting request for another injection/arthrogram with "a stronger dose of medicine" I have ordered an injection under flouroscopy of the left hip with marcaine and 80mg of depomedrol . She would like this done around the time of the [place] so she can enjoy shopp ing. I've told her that I think it would be reasonable to reinject the hip up to every 3 mo nths as long as the injections are effective to delay a total hip arthroplasty as long as po ssible. She is welcome to return to clinic and see me on an as-needed basis. Dr. Olivia templeton also expressed a willingness to do her total hip arthroplasty if needed. Lloyd Garcia M.D. [employer], [facility]oped[facility] Rehabilitation documented in this encount er Plan of Treatment Not on filedocumented as of this encounter Procedures + +--------+ + + + | Procedure Name | Priori | Date/Time | Associated Diagnosis | Comments | | | ty | | | | + +--------+ + + + | X-RAY ARTHROGRAM HIP | Routin | 06/11/2006 | Osteoarthritis of | Results for this | | RT | e | 3:29 PM | Hip | procedure are in the | | | | PDT | | results section. | + +--------+ + + + | X-RAY HIP 2 VIEWS | Routin | 05/23/2006 | Osteoarthritis of | Results for this | | RIGHT | e | 11:39 AM | Hip Hip Pain | procedure are in the | | | | PDT | | results section. | + +--------+ + + + documented in this encounter Results ARTHROGRAM HIP RT (06/11/2006 3:29 PM PDT) + + + + + + | Component | Value | Ref Range | Performed | Pathologist | | | | | At | Signature | + + + + + + | ARTHROGRAM | Radiologist 1: TRIPP, | | | | | HIP RT | Raegan HERRERA M.D.EXAM: | | | | | | FLUOROSCOPIC GUIDANCE | | | | [...] | | + +---------+ + + | [facility] DEPARTMENT OF | | | | | RADIOLOGY | | | | + +---------+ + + HIP 2 VIEWS RIGHT (05/23/2006 11:39 AM PDT) + + + + + + | Component | Value | Ref Range | Performed | Pathologist | | | | | At | Signature | + + + + + + | HIP 2 VIEWS | Radiologist 1: TRIPP, | | | | | RIGHT | Raegan HERRERA, | | | | | | M.Heri-Radiologist 2: | | | | | | ZULAY MATTSONUDY: | | | | | | Right hip three views, | | | | | | AP and lateral | | | | | | COMPARISON: 12/18/05 | | | | | | DISCUSSION: There are | | | | | | advanced degenerative | | | | | | changes of the right | | | | | | hip, withmedial joint | | | | | | space narrowing and | | | | | | sclerosis. There is | | | | | | extensiveheterotopic | | | | | | bone formation | | | | | | laterally. This is | | | | | | unchanged fromprior. | | | | | | There are no bony | | | | | | fractures. The joint | | | | | | space of the lefthip is | | | | | | intact. The sacroiliac | | | | | | joints are maintained. | | | | | | IMPRESSION: 1. Advanced | | | | | | degenerative disease of | | | | | | the right hip. 2. | | | | | | Extensive heterotopic | | | | | | bone formation about the | | | | | | right hip,unchanged | | | | | | from prior. | | | | + + + + + + + + | Specimen | + + | | + + + +---------+ + + | Performing | Address | City/State/Zipcode | Phone Number | | Organization | | | | + +---------+ + + | [facility] DEPARTMENT OF | | | | | RADIOLOGY | | | | + +---------+ + + documented in this encounter Visit Diagnoses + + | Diagnosis | + + | Osteoarthritis of hip Osteoarthrosis, unspecified whether generalized or localized, | | pelvic region and thigh | + + | Hip pain Pain in joint, pelvic region and thigh | + + documented in this encounter
--- OUTSIDE RECORDS SUMMARY | ~2020-04-27 | XMS | Encounter Summary ---
Demographics + + + | Address | [address] | | | [place] [address] | + + + | Home Phone | | + + + | Preferred Language | Unknown | + + + | Marital Status | Single | + + + | Holiness Affiliation | PRE | + + + [...] Team Providers + +------+ + | Care Entertainment Centre Manager Name | Role | Phone | + +------+ + PCP | Unavailable | + +------+ + Encounter Details +--------+ + + + + | Date | Type | Department | Care Team | Description | +--------+ + + + + | 10/08/ | Inpatient | | Report, Inpatient | | | 2004 | Progress | | Consultation | | | | Note | | | | +--------+ + + [...] as of this encounter Progress Notes Interface, Dining Services Manager In - 04/28/2005 5:10 PM PDT Referred From and Faxed To: Lloyd Herzberg, M.D. Referred To: Plastic Surgery Consulting Physician: Marguerite Araujo M.D. Chief Complaint and Reason for Requested Consultation: I was asked to consult by Dr. Lloyd Garcia on his patient Shelby Galdamez for evaluation of a right hip wound. She is a 43-year-old patient who has a history of osteoarthritis. She underwent resection of osteophytes in July of this year, and eventually required open reduction and internal fixation of her greater trochanter. She developed an infected wound, which has subsequently been reopened. All the hardware was removed. She has been treated most recently with a VAC for wound care. At this time, she is in the operating room for a dressing change and consideration of wound closure. Past Medical History: Her past medical history is notable for asthma, gastroesophageal reflux disease, and obesity. Past Surgical History: Her past surgical history is significant for a , resection of right hip osteophytes in July of 2003, subsequent incision and drainage and multiple recent intraoperative dressing changes and d bridements. Allergies: She has allergies to LIPITOR. Medications: 1. Oxycodone. 2. Indomethacin. 3. Zantac. 4. Iron supplements. 5. Docusate. 6. Started on Nafcillin 2 g IV q.4h. this hospitalization. 7. Started on Flagyl 500 mg p.o. q.6h. this hospitalization. 8. Additional pain medications, as well as Nystatin. Consultation Findings and Recommendations: Physical Examination: On physical examination, the patient is asleep, draped, on the operating room table, and under general anesthesia. There is a 25 x 15 cm open wound of the right hip. There are exposed muscles and exposed greater trochanter. The wound is clean, with healthy red granulation tissue present in all surfaces of the wound. There is abundant skin, which appears healthy. There is no evidence of cellulitis. Assessment and Plan: In discussion with Dr. Garcia, we elected to attempt primary closure over drains. This wound has been treated with multiple d bridements, washouts, and VAC changes for the last several days, and we feel that it is clean enough to attempt primary closure. There is adequate soft tissue to close over the bone. This will be done by Dr. Garcia and dictated separately. I elected to scrub in at this point to perform soft tissue closure. This will also be dictated separately in an operative report. Marguerite Araujo M.D. [id number] documented in this encounter Plan of Treatment Not on filedocumented as of this encounter Visit Diagnoses Not on filedocumented in this encounter"
--- OUTSIDE RECORDS SUMMARY | ~2020-04-27 | XMS | Encounter Summary ---
Demographics + + + | Address | [address] | | | [place] [address] | + + + | Home Phone | | + + + | Preferred Language | Unknown | + + + | Marital Status | Single | + + + | Christianity Affiliation | PRE | + + + | Race | White | + + + | Ethnic Group | Not or | + + + Author + + + | Author | [facility] | + + + | Organization | [facility] | + + + | Address [...] Team Providers + +------+ + | Care Informatica Mdm Architect Name | Role | Phone | + +------+ + | Yuki Pantoja MD | PCP | | + +------+ + Reason for Referral Diagnostic Testing (Routine) +--------+--------+ + + + + | Status | Reason | Specialty | Diagnoses / | Referred By | Referred To | | | | | Procedures | Contact | Contact | +--------+--------+ + + + + | Closed | | Radiology | Diagnoses | Arias, | Rad Ct Scan | | | | | Hip pain | Kalyan Barrientos MD | [facility] [address] | | | | | Back pain | [address] | [address] | | | | | Procedures | [address] Bergman | Roxann Ayala [facility] | | | | | CT INJ | [facility]ala [facility], | | | | | SACROILIAC | [place], [place] | [address]th Floor | | | | | JOINT | [address] | [place], [place] | | | | | W/NEEDLE | Phone: | [address] | | | | | PLCMT | [phone] | Phone: | | | | | | Fax: | [phone] | | | | | | [phone] | Fax: | | | | | | | [phone] | +--------+--------+ + + + + Reason for Visit + + + | Reason | Comments | + + + | Follow-up visit | | + + + Office Visit - E/M Services (Routine) +--------+--------+ + + + + | Status | Reason | Specialty | Diagnoses / | Referred By | Referred To | | | | | Procedures | Contact | Contact | +--------+--------+ + + + + | Closed | | Orthopedics | | Non-[facility] | [place], | | | | | | Epic Dept | Kalyan Barrientos MD | | | | | | | [address] | | | | | | | [address] | | | | | | | [place], | | | | | | | [place] | | | | | | | [address] | | | | | | | Phone: | | | | | | | [phone] | | | | | | | Fax: | | | | | | | [phone] | +--------+--------+ + + + + Encounter Details +--------+---------+ + + + | Date | Type | Department | Care Team | Description | +--------+---------+ + + + | 07/07/ | Office | Orthopaedics at | Kalyan Arias MD | Hip Replacement; | | 2008 | Visit | [address] | [address] | Hip Pain; | | | | [address] | [address] | Back Pain | | | | Mail[address]: [id number] | [place], [place] | | | | | [facility] | [address] | | | | | [place], [place] | [phone] | | | | | [address] | | | | | | [phone] | | | +--------+---------+ + + + [...] + + documented as of this encounter Last Filed Vital Signs + + + + + | Vital Sign | Reading | Time Taken | Comments | + + + + + | Blood Pressure | - | - | | + + + + + | Pulse | - | - | | + + + + + | Temperature | 36.4 C (97.6 F) | 07/07/2009 12:34 PM | | | | | PDT | | + + + + + | Respiratory Rate | - | - | | + + + + + | Oxygen Saturation | - | - | | + + + + + | Inhaled Oxygen | - | - | | | Concentration | | | | + + + + + | Weight | 117.9 kg (260 lb) | 07/07/2009 12:34 PM | | | | | PDT | | + + + + + | Height | 162.6 cm (5' 4") | 07/07/2009 12:34 PM | | | | | PDT | | + + + + + | Body Mass Index | 44.63 | 07/07/2009 12:34 PM | | | | | PDT | | + + + + + documented in this encounter Progress Notes Kalyan Arias MD - 07/07/2009 1:07 PM PDT~10 mo s/p HO excision, ORIF greater troch, and complex JUAN DAVID. Was not compliant with weight bearing and trochanteric precautions. Had troc h escape at first radiographic f/u. Is happy with ability to rotate hip now, but has pain i n right SI region with standing and bending over. Had phoned in episodes of drainage, serous sounding, but has refused to come in. Reports t here were 2 episodes that lasted less than a day and none since. Denies any infectious sx. PE: Temp(Src) 36.4 C (97.6 F) (Oral) | Ht 1.626 m (5' 4") | Wt 117.935 kg (260 lb) Incision well healed w/o fluctuance, erythema, or drainage Very mild ttp over greater troch area Very ttp over right SI Very TTP with MARGARET on right Gait trendelenberg on right Xray: Not significantly changed. SI jt not visualized. Claw-cable plate loose. A/P: We discussed the possibility of occult infection, hardware complication with the claw plate, the troch escape and trendelenberg, and the possibility of lumbar pathology or SI pa in. She has seen a community spine surgeon. She has a pain contract with her PCP. We will start with CT inj of SI joint, diagnostic and therapeutic. Will consider hip aspir ation if no improvement. Tdocumented in this encounter Plan of Treatment Not on filedocumented as of this encounter Results CT INJ SACROILIAC JOINT W/NEEDLE PLCMT (10/12/2009 10:08 AM [facility]) + + + + + + | Component | Value | Ref Range | Performed | Pathologist | | | | | At | Signature | + + + + + + | CT INJ | CT INJ SACROILIAC JOINT | | | | | SACROILIAC | BILAT COMBO CLINICAL | | | | | JOINT | DATA: Right sacroiliac | | | | | W/NEEDLE | joint pain. TECHNIQUE: | | | | | PLCMT | Verbal and written | | | | | | informed consent was | | | | | | obtained from | | | | | | thepatient, who was then | | | | | | positioned prone on the | | | | | | CT table. Team | | | | | | pausewas performed with | | | | | | the support services manager. | | | | | | [facility] imaging was | | | | | | acquired ofthe | | | | | | sacroiliac joints | | | | | | bilaterally. A | | | | | | suitable entry sites was | | | | | | markedat the skin above | | | | | | the right sacroiliac | | | | | | joint. The patient | | | | | | wasprepped and draped in | | | | | | usual sterile fashion. | | | | | | Using a | | | | | | 25-gaugeneedle, 1% | | | | | | lidocaine was | | | | | | administered | | | | | | subcutaneously over the | | | | | | rightbuttock. With | | | | | | serial CT fluoroscopy, a | | | | | | 3.5-inch 22-gauge | | | | | | needle wasadvanced into | | | | | | the inferior aspect of | | | | | | the right sacroiliac | | | | | | joint.Using a 3 cc | | | | | | syringe, 1 cc (40 mg/cc) | | | | | | methylprednisolone was | | | | | | injectedinto the joint. | | | | | | Using a separate 3 cc | | | | | | syringe, approximately | | | | | | 1.5 ccbupivicaine (5 | | | | | | mg/cc) was injected into | | | | | | the joint. | | | | | | Ronradiology | | | | | | resident, performed the | | | | | | procedure under the | | | | | | directsupervision of | | | | | | [facility] radiology staff. | | | | | | The patient tolerated | | | | | | theprocedure well | | | | | | without immediate | | | | | | complication. FINDINGS: | | | | | | CT images confirms | | | | | | intra-articular position | | | | | | of the needletip in the | | | | | | right sacroiliac joint. | | | | | | IMPRESSION: Successful | | | | | | right sacroiliac joint | | | | | | therapeutic | | | | | | intra-articularinjection | | | | | | without immediate | | | | | | complication. The | | | | | | patient's | | | | | | preprocedurepain score | | | | | | was 4/10 and post | | | | | | procedure score was | | | | | | 0/10. I have personally | | | | | | viewed this | | | | | | procedure/exam and | | | | | | reviewed this report. | | | | | | Author: PEPE DIOR, | | | | | | M.D.Reviewer: MARIAJOSE HILL, | | | | | | M.D. STATUS FINAL / | | | | | | Dr. MARIAJOSE RIVERA | | | | | | PENDING FINAL APPROVAL / | | | | | | Dr. PEPE SULTANA | | | | | | PRELIMINARY - UNSIGNED | | | | | | / Dr. PEPE DIOR | | | | + + + + + + + + | Specimen | + + | | + + + +---------+ + + | Performing | Address | City/State/Zipcode | Phone Number | | Organization | | | | + +---------+ + + | [place] DEPARTMENT OF | | | | | RADIOLOGY | | | | + +---------+ + + documented in this encounter Visit Diagnoses + + | Diagnosis | + + | Hip replacement Hip joint replacement by other means | + + | Hip pain Pain in joint, pelvic region and thigh | + + | Back pain Backache, unspecified | + + documented in this encounter
--- OUTSIDE RECORDS SUMMARY | ~2020-04-27 | XMS | Encounter Summary ---
Demographics + + + | Address | [address] | | | [place] [address] | + + + | Home Phone [...] Author + + + | Author | [facility] | + + + | Organization | [facility] | + + + | Address [...] Team Providers + +------+ + | Care Surgical Assistant Name | Role | Phone | + +------+ + PCP | Unavailable | + +------+ + Encounter Details +--------+ + + + + | Date | Type | Department | Care Team | Description | +--------+ + + + + | 05/13/ | Results | Orthopaedics at | Lloyd Garcia MD | | | 2000 | Only | [facility] [address] | | | | [address] | | | | | | Mailcode: [id number] | | | | | | [facility] | | | | | | [place], [place] | | | | | | [address] | | | | | | [phone] | | | +--------+ + + + [...] ARTHROGRAM HIP SUP & | Routin | 05/19/2001 | | Results for this | | INT | e | 11:48 AM | | procedure are in the | | | | PDT | | results section. | + +--------+ + + + | HIP, 2 VIEWS | Routin | 05/13/2001 | | Results for this | | | e | 8:50 AM | | procedure are in the | | | | PDT | | results section. | + +--------+ + + + | KNEE, 4 VIEWS | Routin | 05/13/2001 | | Results for this | | | e | 8:45 AM | | procedure are in the | | | | PDT | | results section. | + +--------+ + + + | X-RAY PELVIS 1 VIEW | Routin | 05/13/2001 | | Results for this | | | e | 8:35 AM | | procedure are in the | | | | PDT | | results section. | + +--------+ + + + documented in this encounter Results ARTHROGRAM HIP SUP & INT (05/19/2001 11:48 AM PDT) + + + + + + | Component | Value | Ref Range | Performed | Pathologist | | | | | At | Signature | + + + + + + | ARTHROGRAM | Radiologist 1: TRIPP, | | | | | HIP SUP & | Raegan HERRERA M.D.1. | | | | | INT | ARTHROGRAM RIGHT HIP2. | | | | | | THERAPEUTIC INJECTION OF | | | | | | BUPIVACAINE AND | | | | | | DEPO-MEDROL: 05/19/2001 | | | | | | Dictated | | | | | | 05/21/2001 CLINICAL | | | | | | HISTORY: Patient with | | | | | | history of severe | | | | | | degenerative | | | | | | jointdisease right hip | | | | | | and adhesive capsulitis. | | | | | | She has previously | | | | | | hadtemporary relief from | | | | | | arthrograms with | | | | | | therapeutic injections. | | | | | | She nowreturns with | | | | | | worsening pain and | | | | | | marked limitation of | | | | | | motion. PROCEDURE: | | | | | | PAR2 conference was | | | | | | held with the patient | | | | | | and informedconsent | | | | | | obtained. Following | | | | | | sterile prep and drape | | | | | | of the right hipand 1% | | | | | | Xylocaine local | | | | | | anesthesia using | | | | | | preservative-free | | | | | | Xylocaine,right hip | | | | | | arthrogram was first | | | | | | attempted from a | | | | | | superolateral approachat | | | | | | the lateral aspect of | | | | | | the femoral head/neck | | | | | | junction. Afterinitial | | | | | | test injection contrast | | | | | | (Omnipaque-300), the | | | | | | needle appearedto be | | | | | | intra-articular with | | | | | | flow around the femoral | | | | | | neck. I theninjected 5 | | | | | | cc of bupivacaine (5 mg | | | | | | per cc). This injected | | | | | | easily,although upon | | | | | | followup contrast | | | | | | injection, it appeared | | | | | | that most ofthe | | | | | | injection had been | | | | | | extra-articular, | | | | | | dissecting along muscle | | | | | | fascialplanes of the | | | | | | anterior thigh. The | | | | | | needle was therefore | | | | | | redirected to the medial | | | | | | femoral neckjunction | | | | | | and intra-articular | | | | | | needle position obtained | | | | | | and confirmedwith test | | | | | | contrast injection, | | | | | | which more confidently | | | | | | showed the flowof | | | | | | contrast into the joint | | | | | | space. At this point, 5 | | | | | | cc of bupivacaine(5 mg | | | | | | per cc) was injected | | | | | | intra-articularly under | | | | | | fluoroscopicobservation. | | | | | | This was followed by | | | | | | injection of 40 mg of | | | | | | Qurx-Cvahagexvys-gpmfmyi | | | | | | jose. Only an additional | | | | | | 3 to 4 cc of | | | | | | Omnipaque-300contrast | | | | | | could be injected into | | | | | | the joint because of | | | | | | high pressure | | | | | | andlimitation of pain. | | | | | | The needle was removed | | | | | | and the patient was put | | | | | | torange of motion with | | | | | | fluoroscopic spot films | | | | | | and overhead films. | | | | | | FINDINGS: There is | | | | | | degenerative joint | | | | | | disease with generalized | | | | | | jointspace narrowing. | | | | | | There is a prominent | | | | | | collar of osteophytes | | | | | | around thefemoral neck | | | | | | which could somewhat | | | | | | limit her adduction and | | | | | | abductionrange of | | | | | | motion. On the second | | | | | | injection which was | | | | | | clearly documentedto be | | | | | | intra-articular, there | | | | | | were extremely high | | | | | | pressures at partfilling | | | | | | and some discomfort | | | | | | after injection of only | | | | | | approximately 3cc, | | | | | | indicating adhesive | | | | | | capsulitis. After | | | | | | completion of | | | | | | thebupivacaine and | | | | | | Depo-Medrol injection, | | | | | | approximately 3 to 4 | | | | | | ccadditional contrast | | | | | | were administered to | | | | | | better opacify the | | | | | | joint.This shows a | | | | | | tight, contracted joint | | | | | | capsule and was injected | | | | | | underextremely high | | | | | | pressures. There is no | | | | | | lymphatic intravasation | | | | | | orrupture of the | | | | | | capsule. There is | | | | | | generalized cartilage | | | | | | thinning. | | | | | | Nointra-articular loose | | | | | | bodies are identified. | | | | | | Upon range of motion, | | | | | | the patient was | | | | | | initially uncomfortable, | | | | | | butwith progressive | | | | | | range of motion, her | | | | | | pain steadily and | | | | | | progressivelyimproved | | | | | | and she was able to | | | | | | tolerate rather | | | | | | extensive | | | | | | flexion,extension, | | | | | | rotational, abduction | | | | | | and adduction range of | | | | | | motion whichpatient | | | | | | stated that she "had not | | | | | | been able to achieve in | | | | | | years". Herpain | | | | | | improved from pre | | | | | | procedure from level of | | | | | | approximately 8 out of10 | | | | | | to post procedure 2 to | | | | | | 3 out of 10. She still | | | | | | experienced some painat | | | | | | the extremes of | | | | | | extension, and the | | | | | | increased range of | | | | | | motion wassomewhat more | | | | | | striking than the | | | | | | immediate pain relief. | | | | | | IMPRESSION: 1. Initial | | | | | | extracapsular injection | | | | | | of bupivacaine and | | | | | | contrast. 2. Following | | | | | | needle reposition, | | | | | | successful | | | | | | intra-articular hip | | | | | | jointaccess was | | | | | | obtained. 3. Findings of | | | | | | adhesive capsulitis | | | | | | with high pressure, | | | | | | small capacityjoint. 4. | | | | | | Advanced degenerative | | | | | | joint disease with | | | | | | uniform joint | | | | | | narrowingand prominent | | | | | | marginal osteophytes. 5. | | | | | | Successful therapeutic | | | | | | response to injection of | | | | | | bupivacaine | | | | | | andDepo-Medrol with | | | | | | improvement of pain from | | | | | | 8/10 to 2-3/10 and | | | | | | markedincreased range of | | | | | | motion at the | | | | | | completion of the | | | | | | procedure. 6. | | | | | | Complications - none. | | | | | | END OF IMPRESSION: | | | | + + + + + + + + | Specimen | + + | | + + + +---------+ + + | Performing | Address | City/State/Zipcode | Phone Number | | Organization | | | | + +---------+ + + | [facility]MENT OF | | | | | RADIOLOGY | | | | + +---------+ + + HIP, 2 VIEWS (05/13/2001 8:50 AM PDT) + + + + + + | Component | Value | Ref Range | Performed | Pathologist | | | | | At | Signature | + + + + + + | HIP, 2 | Radiologist 1: | | | | | VIEWS | MOSHE FLOWERS, | | | | | | M.Heri-Radiologist 2: | | | | | | REBECCA DENSONHIP: | | | | | | 05/13/2001 Dictated | | | | | | 05/13/01 CLINICAL | | | | | | HISTORY: Joint pain, | | | | | | pelvis. TECHNIQUE: | | | | | | Portable AP pelvis | | | | | | without comparison. | | | | | | FINDINGS: There is | | | | | | joint space narrowing of | | | | | | the right femoral hip | | | | | | andrim osteophyte | | | | | | formation along the | | | | | | femoral head. The left | | | | | | hip jointspace is | | | | | | maintained and the | | | | | | remaining bones of the | | | | | | pelvis are normaldensity | | | | | | and alignment. | | | | | | IMPRESSION: Degenerative | | | | | | joint disease, right | | | | | | hip. END OF | | | | | | IMPRESSION: | | | | + + + + + + + + | Specimen | + + | | + + + +---------+ + + | Performing | Address | City/State/Zipcode | Phone Number | | Organization | | | | + +---------+ + + | [facility] DE[facility]MENT OF | | | | | RADIOLOGY | | | | + +---------+ + + KNEE, 4 VIEWS (05/13/2001 8:45 AM PDT) + + + + + + | Component | Value | Ref Range | Performed | Pathologist | | | | | At | Signature | + + + + + + | KNEE, 4 | Radiologist 1: | | | | | VIEWS | MOSHE FLOWERS | | | | | | Malcom-Radiologist 2: | | | | | | BALAJI DENSON KNEE: | | | | | | 05/13/2001 | | | | | | Dictated 05/13/2001 | | | | | | CLINICAL HISTORY: | | | | | | Evaluate right knee | | | | | | pain. TECHNIQUE: | | | | | | Tunnel view and Merchant | | | | | | views, lateral view | | | | | | right knee. FINDINGS: | | | | | | There is slight lateral | | | | | | patellofemoral joint | | | | | | spacenarrowing with a | | | | | | small spur on the | | | | | | superior patella. The | | | | | | lateralfemoral | | | | | | compartment is | | | | | | incompletely visualized | | | | | | and there is | | | | | | minimalosteophyte | | | | | | formation along the | | | | | | medial joint | | | | | | compartment. IMPRESSION: | | | | | | Minimal degenerative | | | | | | disease in the | | | | | | patellofemoral and | | | | | | medialcompartments in an | | | | | | otherwise normal knee. | | | | | | END OF IMPRESSION: | | | | + + + + + + + + | Specimen | + + | | + + + +---------+ + + | Performing | Address | City/State/Zipcode | Phone Number | | Organization | | | | + +---------+ + + | [facility] DEPARTMENT | | | | | RADIOLOGY | | | | + +---------+ + + PELVIS 1 VIEW (05/13/2001 8:35 AM PDT) + + + + + + | Component | Value | Ref Range | Performed | Pathologist | | | | | At | Signature | + + + + + + | PELVIS 1 | Radiologist 1: ARMANDO | | | | | VIEW | Malcom ALVAREZ-Radiologist | | | | | | 2: KIM ROBERTS | | | | | | MalcomAP PELVIS: | | | | | | 05/13/2001 Dictated | | | | | | 06/18/2001 HISTORY: | | | | | | Pain. COMPARISON: | | | | | | 01/11/2000. FINDINGS: | | | | | | There is superior-medial | | | | | | migration of the right | | | | | | femoral headwith | | | | | | degenerative changes | | | | | | including joint space | | | | | | narrowing,subchondral | | | | | | cysts, and osteophyte | | | | | | formation. The bony | | | | | | structures areintact | | | | | | without evidence for | | | | | | fracture. The left hip | | | | | | is maintained.The left | | | | | | femoral head is smooth. | | | | | | IMPRESSION: 1. Right | | | | | | hip degenerative changes | | | | | | which are probably | | | | | | secondary.Clinical | | | | | | correlation necessary. | | | | | | 2. Normal left hip. | | | | | | END OF IMPRESSION: | | | | + + + + + + + + | Specimen | + + | | + + + +---------+ + + | Performing | Address | City/State/Zipcode | Phone Number | | Organization | | | | + +---------+ + + | [facility] DE[facility]MENT [facility] | | | | | RADIOLOGY | | | | + +---------+ + + documented in this encounter Visit Diagnoses Not on filedocumented in this encounter
--- OUTSIDE RECORDS SUMMARY | ~2020-04-27 | XMS | Encounter Summary ---
Demographics + + + | Address | [address] | | | [place] [address] | + + + | Home Phone | | + + + | Preferred Language | Unknown | + + + | Marital Status | | + + + | Episcopal Affiliation | 1076 | + + + | Race | Unknown | + + + | Ethnic Group | Unknown | + + + Author + + + | Author | [facility] | | | and [place] | + + + | Organization | [facility] | | | and [...] Team Providers + +------+ + | Care Health And Safety Coordinator Name | Role | Phone | + +------+ + PCP | Unavailable | + +------+ + Encounter Details +--------+ + + + + | Date | Type | Department | Care Team | Description | +--------+ + + + + | 06/12/ | Abstract | [facility] | [facility] | | | 2011 | | Conversion Location | SR | | | | | [address] | | | | | | [place], [place] | | | | | | [address] | | | | | | [phone] | | | +--------+ + + + [...] + + + | Blood Pressure | 140/90 | 03/06/2012 12:00 AM | | | | | PDT | | + + + + + | Pulse | - | - | | + + + + + | Temperature | - | - | | + + + + + | Respiratory Rate | - | - | | + + + + + | Oxygen Saturation | - | - | | + + + + + | Inhaled Oxygen | - | - | | | Concentration | | | | + + + + + | Weight | 126.1 kg (278 lb) | 03/06/2012 12:00 AM | | | | | PDT | | + + + + + | Height | 162.6 cm (5' 4") | 03/06/2012 12:00 AM | | | | | PDT | | + + + + + | Body Mass Index | 47.72 | 03/06/2012 12:00 AM | | | | | PDT | | + + + + + documented in this encounter Plan of Treatment +--------+---------+ + + + | Date | Type | Specialty | Care Team | Description | +--------+---------+ + + + | 05/23/ | Office | Pain Medicine | Xiang Sepulveda, | | | 2019 | Visit | | DO [address] | | | | | | [place] | | | | | | [id number] | | | | | | | | +--------+---------+ + + + documented as of this encounter Visit Diagnoses Not on filedocumented in this encounter
--- OUTSIDE RECORDS SUMMARY | ~2020-04-27 | XMS | Encounter Summary ---
Demographics + + + | Address | [address] | | | [place] [address] | + + + | Home Phone | | + + + | Preferred Language | Unknown | + + + | Marital Status | Single | + + + | Mandaen Affiliation | PRE | + + + | Race | White | + + + | Ethnic Group | Not or | + + + Author + + + | Author | [facility] | + + + | Organization | [facility] | + + + | Address | Unknown | + + + | Phone | Unavailable | + + + Support + + + + + | Name | Relationship | Address | Phone | + + + + + | Casandra Smith | ROBERTO | [place] | | + + + + + Care Team Providers + +------+ + | Care Abrasive Grinder Name | Role | Phone | + +------+ + | Travis Mcginnis MD | PCP | | + +------+ + Reason for Referral Consultation (Routine) +--------+--------+ + + + + | Status | Reason | Specialty | Diagnoses / | Referred By | Referred To | | | | | Procedures | Contact | Contact | +--------+--------+ + + + + | Closed | | Surgery | Diagnoses | [facility] | Nirav | | | | | Primary | Royce Emery MD | [facility] | | | | | osteoarthrit | [address] | [address] | | | | | is of left | [address]ank[address] Bergman | Yasmany Gil | | | | | hip | Roxann Ayala | [facility] | | | | | Procedures | [place], [place] | [facility] and | | | | | CONSULT TO | [address] | Healing, | | | | | BARIATRIC | Phone: | Building [address] | | | | | SURGERY | [phone] | [place], [place] | | | | | | Fax: | [address] | | | | | | [phone] | Phone: | | | | | | | | | | | | | | Fax: | | | | | | | [phone] | +--------+--------+ + + + + Reason for Visit + + + | Reason | Comments | + + + | New patient | | | consultation | | + + + Consultation (Routine) +--------+--------+ + + + + | Status | Reason | Specialty | Diagnoses / | Referred By | Referred To | | | | | Procedures | Contact | Contact | +--------+--------+ + + + + | Closed | | Orthopedics | Diagnoses | [facility] | [facility], | | | | | L hip pain | Epic Dept | Royce Emery MD | | | | | | | [address] | | | | | | | [address] | | | | | | | [address] [place], | | | | | | | [place] | | | | | | | [address] | | | | | | | Phone: | | | | | | | [phone] | | | | | | | Fax: | | | | | | | [phone] | +--------+--------+ + + + + Encounter Details +--------+---------+ + + + | Date | Type | Department | Care Team | Description | +--------+---------+ + + + | 10/02/ | Office | Orthopaedics | Royce Durand, | Primary | | 2019 | Visit | [facility] [place] | [address] | osteoarthritis of | | | | for Health and | [address] | left hip (Primary | | | | Healing [address] | [facility] | Dx); Left hip pain; | | | | [address] [place] for | [address] | Smoking; Chronic | | | | [facility], | [phone] | obstructive | | | | | | pulmonary disease, | | | | Floor [place], [place] | | unspecified COPD | | | | [address] | | type ([facility]); Class 3 | | | | [phone] | | severe obesity with | | | | | | body mass index | | | | | | (BMI) of 40.0 to | | | | | | 44.9 in adult, | | | | | | unspecified obesity | | | | | | type, unspecified | | | | | | whether serious | | | | | | comorbidity present | | | | | | ([facility]) | +--------+---------+ + + + Social History [...] + + + + | Weight | 119.3 kg (263 lb) | 10/02/2018 9:47 AM | | | | | PST | | + + + + + | Height | 163.8 cm (5' 4.5") | 10/02/2018 9:47 AM | | | | | PST | | + + + + + | Body Mass Index | 44.45 | 10/02/2018 9:47 AM | | | | | PST | | + + + + + documented in this encounter Progress Notes Royce Durand MD - 10/02/2018 9:55 AM PSTFormatting of this note might be different fro m the original. [facility] DEPARTMENT OF ORTHOPAEDICS & REHABILITATION Adult Reconstruction / Joint Replacement Surgery New Patient History & Physical Exam Chief Complaint, Reason for Consultation: Left hip pain Referring Provider: No Referring Provider Per Patient NO REFERRING PROVIDER PER PT History of Present Illness: Ms. Galdamez is a 58 year old pleasant woman with left hip pain for about 10 years. The pain is located in the deep groin crease . The patient describes the pain as constant, achy and s harp, stabbing and limits her function daily. Radiation of the pain is positive by way of t he left knee. The patient reports pain at night. Her only weight loss was 26 pounds and came as a result of being sick due to the pain cause d by her hip. She reports that the pain caused her to vomit whenever she would move because it was so severe. Pt smokes 10 cigarettes a day, which may increase depending on stress level. She has some t rouble breathing at times. History of prior surgery include right hip cheilectomy in [address] Garcia which was co mplicated by a troch fracture then she underwent total hip arthroplasty with attempted troch fixation and this was complicated by post-operative infection resulting in further surgerie s, most recently by Dr. Arias in 2007 with removal of the troch plate and debridement. Previous treatments, efficacy or reason treatments are contraindicated: ? Medications: Patient has tried taking hydrocodone, flexeril, ibuprofen and aleve for pain . ? Weight loss: Pt only lost weight when she was sick. ? Physical therapy: Patient has had prior physical therapy and symptoms have not progressed in spite of good effort. ? Braces, orthotics and/or assistive devices: Pt uses a walker. Additional details include: - Gait aids used: Walker - Walking Distance: 1 blocks (one block is 200 meters/yards) - Support available at home for post-op care: Yes. Other details: Pt has 2 caregivers that help her at home, however they cut their hours down . Limitations of activities of daily living include inability to walk long distances or compl ete simple tasks at home without the aid of her caregivers. Safety concerns: none. Past Medical History: Past Medical History: Diagnosis Date Abnormal reflex gag Acid reflux Asthma HLD (hyperlipidemia) HTN Morbid obesity (HCC) Muscular calcification and ossification, unspecified right hip Nephrolithiasis Osteoarthritis of hip SOB (shortness of breath) Medications: acetaminophen 500 mg Oral Tablet, Take 500 mg by mouth every six hours as needed. ALBUTEROL SULFATE 200 MCG CAPS WITH INHALATION DEVICE, inhale the contents of one capsule b y inhalation route every 4 hours as needed aspirin EC 325 mg Oral Tablet, Delayed Release (E.C.), Take 1 Tab by mouth two times daily. Take for 6 weeks as prevention of leg blood clots. CALCIUM CARBONATE/VITAMIN D3 (CALCIUM 600 + D ORAL), Take by mouth. ciprofloxacin (CIPRO) 750 mg Oral Tablet, Take 1 Tab by mouth every twelve hours. Take unti l gone. CYCLOBENZAPRINE HCL (CYCLOBENZAPRINE ORAL), Take by mouth. docusate sodium (DOC-Q-LACE) 100 mg Oral Capsule, Take 100 mg by mouth as needed. hydrocodone-acetaminophen 7.5-325 mg Oral Tablet, Take 1 Tab by mouth every four hours as n eeded. Not to exceed 12 tablets per any 24 hour period. (Not to exceed 4000 mg of acetaminop hen from all products per 24 hour period.) ibuprofen 800 mg oral tablet, Take 800 mg by mouth every six hours as needed. MULTIVITS W-FE,OTHER MIN (CENTRUM ORAL), Take by mouth. [place]-3 Fatty Acids-Vitamin E (FISH OIL) 1,000 mg Oral Capsule, Take by mouth. omeprazole (PRILOSEC) 40 mg Oral Capsule, Delayed Release(E.C.), Take 40 mg by mouth once d aily. rifamPIN 300 mg Oral Capsule, Take 1 Cap by mouth two times daily. Allergies: Allergies Allergen Reactions Adhesive Tape Rash Levofloxacin Pruritus Lipitor [Atorvastatin Calcium] Sulfa (Sulfonamide Antibiotics) Gives intestinal flu Review of systems: Patient denies DVT/PE, anticoagulation, DM, CAD Patient denies immunosuppressants, hormone therapy Constitutional symptoms such as fever, chills, and sweats is negative. History of inflammatory disease is negative. History of bleeding or clotting disorders is negative Family History: Patient denies family history of coagulopathies or problems with anesthesia. Social History: Social History Social History Marital status: Single Spouse name: N/A Number of children: N/A Years of education: N/A Occupational History Not on file. Social History Main Topics Smoking status: Current Every Day Smoker Packs/day: 1.00 Years: 41.00 Types: Cigarettes Smokeless tobacco: Never Used Alcohol use Yes Comment: rare social Drug use: Yes Comment: marijuana, no IVDU Sexual activity: Not on file Other Topics Concern Not on file Social History Narrative No narrative on file The pt's medical history, medications, allergies, surgical history, family history, social history, and a complete review of systems are also included on today's patient questionnaire (see Scanned Documents/Media section). EXAM: Last Vitals: Ht 1.638 m (5' 4.5") | Wt 119.3 kg (263 lb) | BMI 44.45 kg/(m^2) Body mass index is 44.45 kg/m. General: NAD, A&Ox3. Obese. Chest: Breathing non-labored, no signs of respiratory distress. Skin: No lesions noted on bilateral lower extremities. Well healed right posterior hip inci sions without erythema. Lymph: No lymphedema, No pedal edema Gait: Walker-dependent Pelvis: Level. Leg lengths clinically equal Lower extremity exam: Left: Hip: Mild tenderness over trochanteric bursa. Exquisite pain with hip rotation Forward flexion Internal Rotation External Rotation Adduction Abduction ROM 110 10 30 30 10 Examination of the remainder of the left lower extremity reveals pain in left knee with rot ation/movement. Neurologic: Motor: R L Hip Flexion 5 5 Hip Abduction 5 5 Quadriceps 5 5 Ankle dorsiflexion 5 5 Ankle plantar flexion 5 5 Extensor hallucis longus 5 5 Sensory: Sensation intact to light touch deep peroneal, superficial peroneal and tibial nerves. Vascular: Capillary refill <2 sec. No pedal edema. No venous varicosities Imaging: Yanick-posterior pelvis with yanick-posterior & lateral views of the bilateral hip show: St atus post right total hip arthroplasty (Mom) components unchanged no complications noted. T here is left Severe end stage osteoarthritis, with complete loss of the joint space, subchon dral sclerosis, and osteophyte formation. Impression: Orthopaedic Diagnosis: Left hip pain with exam and radiographic evidence consistent with se samuels, end-stage osteoarthritis. -Status post right total hip arthroplasty MOM that has had previous PJI Other Pertinent Medical History: COPD Smoking Obesity Plan: We had a long discussion of non-surgical and surgical options. She isn't a surgical herrera adte at this point due to her current smoking status and morbid obesity. Weight Loss Recommended weight loss for this patient. The patient was offered a referral to [facility], for non-surgical and potentially surgical o ptions. NSAIDs Recommended nonsteroidal anti-inflammatory drugs (NSAIDs; oral or topical). They were offe red a prescription or to obtain over the counter on their own. Discussed why Pt is not a candidate for a JUAN DAVID at this time due to being a smoker and being obese Referred Pt to bariatrics team to help with weight loss with goal BMI <40 Advised complete smoking cessation Pt should follow up once she loses weight and stops smoking -we also discussed that she needs labs to continue to follow the right hip for the infectio n and MOM but she didn't want to do any of this today but advised her she needs this. Erythr ocyte sedimentation rate, c-reactive protein and metal ions should be followed in this patie nt. I, Ernesto Santos, am functioning as a scribe for Royce Durand MD. I have reviewed and verified the above scribed note of my visit with this patient as record ed by Ernesto Santos. Royce Durand MD documented in this en counter Plan of Treatment Not on filedocumented as of this encounter Results X-RAY HIP 2 VIEWS LEFT W/ PELVIS 1 VIEW (10/02/2018 9:47 AM PST) + + | Specimen | + + | | + + + + + | Narrative | Performed At | + + + | EXAM: HIP 2 VIEWS LEFT W/ PELVIS 1 VIEW HISTORY: left hip pain | [facility] | | COMPARISON: 06/22/2018 and 06/26/2018 FINDINGS: On the left | RADIOLOGY VOICE | | there is no fracture or focal destruction. Advanced hip joint space | RECOGNITION 2 | | narrowing, osteophytosis and subchondral cystic change are again | | | noted. On the right the total hip arthroplasty shows no loosening, | | | failure or new periprosthetic fracture. The distal tip of the femoral | | | stem was excluded from the image. The the displaced greater | | | trochanteric fragment is unchanged. The other bones of the pelvis are | | | partially obscured without definite fracture or focal destruction. The | | | sacroiliac joints and symphysis pubis are intact. There is no focal | | | soft tissue abnormality. IMPRESSION: Unchanged advanced left | | | hip joint degeneration. Partially outlined right total hip | | | arthroplasty without apparent complication. I have personally | | | reviewed the images and, if necessary, edited the report. I agree with | | | the report as now presented. Final signature: Yue Porter | | | 10/02/2018 10:09 AM Preliminary: Yue Porter MD | | | Dictation initiated: Yue Porter MD 10/02/2018 10:06 AM | | + + + + + | Procedure Note | + + | Service Account, Radiant Res In Interface - 10/02/2018 10:10 AM PST EXAM: HIP 2 VIEWS | | LEFT W/ PELVIS 1 VIEW HISTORY: left hip pain COMPARISON: 06/22/2018 and 06/26/2018 | | FINDINGS: On the left there is no fracture or focal destruction. Advanced hip joint | | space narrowing, osteophytosis and subchondral cystic change are again noted. On the | | right the total hip arthroplasty shows no loosening, failure or new periprosthetic | | fracture. The distal tip of the femoral stem was excluded from the image. The the | | displaced greater trochanteric fragment is unchanged. The other bones of the pelvis are | | partially obscured without definite fracture or focal destruction. The sacroiliac joints | | and symphysis pubis are intact. There is no focal soft tissue abnormality. IMPRESSION: | | Unchanged advanced left hip joint degeneration. Partially outlined right total hip | | arthroplasty without apparent complication. I have personally reviewed the images and, | | if necessary, edited the report. I agree with the report as now presented. Final | | signature: Yue Porter MD 10/02/2018 10:09 AM Preliminary: Yue Porter MD | | Dictation initiated: Yue Porter MD 10/02/2018 10:06 AM | |Unchanged advanced left hip joint degeneration. | | | |Partially outlined right total hip arthroplasty without apparent complication. | | | |I have personally reviewed the images and, if necessary, edited the report. I agree with th e report as now presented. | | | |Final signature: Yue Porter MD 10/02/2018 10:09 AM | |Preliminary: Yue Porter MD | |Dictation initiated: Yue Porter MD 10/02/2018 10:06 AM | + + + +---------+ + + | Performing | Address | City/State/Zipcode | Phone Number | | Organization | | | | + +---------+ + + | [facility] | | | | | VOICE RECOGNITION 2 | | | | + +---------+ + + documented in this encounter Visit Diagnoses + + | Diagnosis | + + | Primary osteoarthritis of left hip - Primary Primary localized osteoarthrosis, pelvic | | region and thigh | + + | Left hip pain Pain in joint, pelvic region and thigh | + + | Smoking Tobacco use disorder | + + | Chronic obstructive pulmonary disease, unspecified COPD type (HCC) | + + | Class 3 severe obesity with body mass index (BMI) of 40.0 to 44.9 in adult, | | unspecified obesity type, unspecified whether serious comorbidity present (HCC) | + + documented in this encounter
--- OUTSIDE RECORDS SUMMARY | ~2020-04-27 | XMS | Encounter Summary ---
Demographics + + + | Address | [address] | | | [place] [address] | + + + | Home Phone [...] Author + + + | Author | [facility] | + + + | Organization | [facility] | + + + | [...] Team Providers + +------+ + | Care Audit Officer Name | Role | Phone | + +------+ + | Travis Mcginnis MD | PCP | | + +------+ + Reason for Visit + + + | Reason | Comments | + + + | Erroneous Encounter | | | - Disregard | | + + + Office Visit - E/M Services (Routine) +--------+--------+ + + + + | Status | Reason | Specialty | Diagnoses / | Referred By | Referred To | | | | | Procedures | Contact | Contact | +--------+--------+ + + + + | Closed | | Orthopedics | Diagnoses | [facility] | [place], | | | | | | Epic Dept | Kalyan Barrientos MD | | | | | Osteoarthros | | [address] | | | | | is, | | [address] | | | | | unspecified | | [address] [place], | | | | | whether | | [place] | | | | | generalized | | [address] | | | | | or | | Phone: | | | | | localized, | | [phone] | | | | | pelvic | | Fax: | | | | | region and | | [phone] | | | | | thigh Pain | | | | | | | in joint, | | | | | | | pelvic | | | | | | | region and | | | | | | | thigh | | | +--------+--------+ + + + + Encounter Details +--------+---------+ + + + | Date | Type | Department | Care Team | Description | +--------+---------+ + + + | 04/26/ | Office | Orthopaedics at | Kalyan Arias MD | Hip pain; | | 2010 | Visit | [facility] [address] | [address] | Osteoarthritis of | | | | [address] | [address] | hip; Infection and | | | | Mailcode: [id number] | [place], [place] | inflammatory | | | | [facility] | [address] | reaction due to | | | | [place], [place] | [phone] | internal joint | | | | [address] | | prosthesis ([facility]); | | | | [phone] | | EE-NO SHOW | +--------+---------+ + + + Social History [...] documented as of this encounter Progress Notes Kalyan Arias MD - 04/30/2011 9:01 PM PDTThis encounter was opened in error. Please dis regard this note. 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
--- OUTSIDE RECORDS SUMMARY | ~2020-04-27 | XMS | Encounter Summary ---
Demographics + + + | Address | [address] | | | [place] [address] | + + + | Home Phone | | + + + | Preferred Language | Unknown | + + + | Marital Status | Single | + + + | [employer] Affiliation | PRE | + + + | Race | White | + + + | Ethnic Group | Not or | + + + Author + + + | Author | [facility] | + + + | Organization | [facility] | + + + | [...] Team Providers + +------+ + | Care Cylinder Inspector Name | Role | Phone | + +------+ + PCP | Unavailable | + +------+ + Encounter Details +--------+ + + + + | Date | Type | Department | Care Team | Description | +--------+ + + + + | 03/28/ | Office | [facility] | Note, Outpatient | Progress Note | | 2000 | Visit-Trans | MEDICINE | Clinic | [...] as of this encounter Progress Notes Interface, Black Leather Buffer In - 07/22/2006 3:18 AM PDTCLINIC DATE: 03/28/2001 ORTHOPEDIC CLINIC We received a fax today for authorization for a knee brace for Shelby Galdamez. This is Dr. Garcia's patient. The diagnosis codes for her knee brace are below what they call below the line, so the insurance will not okay this knee brace. Per Dr. Garcia, the patient can either purchase the brace herself or go to a drug store and look at their braces which are less expensive, and she may want to get that. Jason Castano M.A. TAYE / SALEEM [id number] / [id number] / [id number] / Tdocumented in this encounter Plan of Treatment Not on filedocumented as of this encounter Visit Diagnoses Not on filedocumented in this encounter"
--- OUTSIDE RECORDS SUMMARY | ~2020-04-27 | XMS | Encounter Summary ---
Demographics + + + | Address | [address] | | | [place] [address] | + + + | Home Phone | | + + + | Preferred Language | Unknown | + + + | Marital Status | Single | + + + | Catholic Affiliation | PRE | + + + | Race | White | + + + | Ethnic Group | Not or | + + + Author + + + | Author | [facility] | + + + | Organization | [facility] | + + + | [...] Team Providers + +------+ + | Care Medical Appliance Maker Name | Role | Phone | + +------+ + | Travis Mcginnis MD | PCP | | + +------+ + Reason for Visit + + + | Reason | Comments | + + + | Return Patient | | + + + Office Visit - E/M Services (Routine) +--------+--------+ + + + + | Status | Reason | Specialty | Diagnoses / | Referred By | Referred To | | | | | Procedures | Contact | Contact | +--------+--------+ + + + + | Closed | | Orthopedics | Diagnoses | Non-[facility] | Arias, | | | | | | Epic Dept | Kalyan Barrientos MD | | | | | Osteoarthros | | [address] | | | | | is, | | [address] | | | | | unspecified | | [address] [place], | | | | | whether | | [place] | | | | | generalized | | [address] | | | | | or | | Phone: | | | | | localized, | | [phone] | | | | | pelvic | | Fax: | | | | | region and | | [phone] | | | | | thigh Pain [...] Description | +--------+---------+ + + + | 05/10/ | Office | Orthopaedics at | Kalyan Arias MD | Infection and | | 2010 | Visit | [facility] [address] | [address] | inflammatory | | | | [address] | [address] | reaction due to | | | | Mailcode: [id number] | [place], [place] | internal joint | | | | [facility] | [address] | prosthesis (HCC) | | | | [place], [place] | [phone] | (Primary Dx) | | | | [address] | | | | | | [phone] | | | +--------+---------+ + + + [...] kg (262 lb) | 05/10/2011 12:06 PM | | | | | PDT | | + + + + + | Height | 162.6 cm (5' 4") | 05/10/2011 12:06 PM | | | | | PDT | | + + + + + | Body Mass Index | 44.97 | 05/10/2011 12:06 PM | | | | | PDT | | + + + + + documented in this encounter Progress Notes Kalyan Arias MD - 05/10/2011 12:46 PM PDT6 mo s/p I&D and trochanteric HWR right hip for MSSA infection. Had 2 days of sx before washout. Has completed abts, seen by Elvia ross. States her hip feels good. No instability. Has low back problems which she has been indic ated for [facility] in [place], but they want the ok from ID. PE:Ht 162.6 cm (5' 4") | Wt 118.842 kg (262 lb) | BMI 44.97 kg/(m^2) Incision well healed No warmth/ induration/ redness/ fluctuance NVI d No pain with rotation Xray: No change in position or signs of loosening A/P: Doing well Re: right JUAN DAVID. Will defer to ID re: MARISABEL. Only needs prn f/u here as she lives near [place]. d ocumented in this encounter Plan of Treatment Not on filedocumented as of this encounter Procedures + +--------+ + + + | Procedure Name | Priori | Date/Time | Associated Diagnosis | Comments | | | ty | | | | + +--------+ + + + | ORDERS OTHER | | 05/10/2011 | | Results for this | | | | 12:00 AM | | procedure are in the | | | | PDT | | results section. | + +--------+ + + + | RADIOLOGY | | 10/05/2010 | | Results for this | | | | 12:00 AM | | procedure are in the | | | | PST | | results section. | + +--------+ + + + documented in this encounter Results X-RAY HIP 2 VIEWS RIGHT W/ PELVIS 1 VIEW (05/10/2011 11:53 AM PDT) + + + + + + | Component | Value | Ref Range | Performed | Pathologist | | | | | At | Signature | + + + + + + | X-RAY HIP 2 | STUDY: HIP 2 VIEWS RIGHT | | | | | VIEWS | W/ PELVIS 1 VIEW | | | | | RIGHT W/ | 05/10/11 11:53:00 | | | | | PELVIS 1 | HISTORY: Arthroplasty. | | | | | VIEW | COMPARISON: 11/23/10 | | | | | | FINDINGS: The | | | | | | noncemented right total | | | | | | hip arthroplasty is in | | | | | | normal | | | | | | alignment.Hardware is | | | | | | intact without failure, | | | | | | loosening or | | | | | | periprostheticfracture. | | | | | | The displaced greater | | | | | | trochanteric fragment is | | | | | | unchanged.Dense | | | | | | surgical material about | | | | | | the proximal femoral | | | | | | diaphysis isunchanged. | | | | | | The other bones of the | | | | | | pelvis are intact. The | | | | | | sacrum is | | | | | | partiallyobscured by a | | | | | | gonadal shield. The | | | | | | left hip joint space, | | | | | | symphysispubis and left | | | | | | sacroiliac joint are | | | | | | intact. IMPRESSION: | | | | | | Stable right total hip | | | | | | arthroplasty. Attending | | | | | | Radiologists: Yue Abdalla | | | | | | Malcom PorterAuthor: | | | | | | Yue Porter M.D. | | | | | | I have personally viewed | | | | | | this procedure/exam, | | | | | | reviewed this report,and | | | | | | made changes to it | | | | | | where appropriate. | | | | | | Final/Electronically | | | | | | signed / Yue Abdalla | | | | | | [place] 05/10/2011 | | | | | | 12:45PM | | | | + + + + + + + + | Specimen | + + | | + + + +---------+ + + | Performing | Address | City/State/Zipcode | Phone Number | | Organization | | | | + +---------+ + + | [facility]MENT [facility] | | | | | RADIOLOGY | | | | + +---------+ + + ORDERS OTHER (05/10/2011 12:00 AM PDT) + + + | Narrative | Performed At | + + + | | | + + + + + | Transcriptions | + + | Beatriz Beckett - 11/06/2011 2:18 PM PST | + + RADIOLOGY (10/05/2010 12:00 AM PST) + + + | Narrative | Performed At | + + + | | | + + + + + | Transcriptions | + + | Beatriz Beckett - 07/09/2011 2:52 PM PDT | + + documented in this encounter Visit Diagnoses + + | Diagnosis | + + | 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
--- OUTSIDE RECORDS SUMMARY | ~2020-04-27 | XMS | Encounter Summary ---
Demographics + + + | Address | [address] | | | [place] [address] | + + + | Home Phone [...] + | Casandra Smith | ROBERTO | [place] | | + + + + + Care Team Providers + +------+ + | Care Origination Specialist Name | Role | Phone | + +------+ + PCP | Unavailable | + +------+ + Encounter Details +--------+ + + + + | Date | Type | Department | Care Team | Description | +--------+ + + + + | 02/19/ | Results | Orthopaedics at | Lloyd Garcia MD | | | 2001 | Only | [facility] [address] | | | | | | [address] | | | | | | Mailcode: PV430 | | | | | | [facility] | | | | | | [place], [place] | | | | | | [address] | | | | | | [phone] | | | +--------+ + + + [...] | X-RAY ARTHROGRAM HIP | Routin | 02/19/2002 | | Results for this | | RT | e | 11:00 AM | | procedure are in the | | | | PDT | | results section. | + +--------+ + + + documented in this encounter Results ARTHROGRAM HIP RT (02/19/2002 11:00 AM PDT) + + + + + + | Component | Value | Ref Range | Performed | Pathologist | | | | | At | Signature | + + + + + + | ARTHROGRAM | Radiologist 1: | | | | | HIP RT | MOSHE FLOWERS, | | | | | | M.D.THERAPEUTIC RIGHT | | | | | | HIP ARTHROGRAM: | | | | | | 02/19/2002 Dictated: | | | | | | 02/19/2002 HISTORY: | | | | | | Severe degenerative | | | | | | joint disease of the | | | | | | right hip andadhesive | | | | | | capsulitis. The | | | | | | patient has had previous | | | | | | temporary relieffrom | | | | | | previous therapeutic | | | | | | arthrograms. PROCEDURE: | | | | | | Following a PARQ | | | | | | conference, consent was | | | | | | obtained from | | | | | | thepatient. The right | | | | | | hip was prepped and | | | | | | draped in the usual | | | | | | sterilefashion. A 2% | | | | | | preservative free | | | | | | xylocaine was used to | | | | | | anesthetize theskin and | | | | | | underlying soft tissues. | | | | | | The needle was | | | | | | directed toward | | | | | | themedial femoral | | | | | | head/neck junction and | | | | | | intra-articular needle | | | | | | positionwas confirmed | | | | | | with 1-2 cc of Hypaque | | | | | | 60%. Then a mixture of | | | | | | 5 cc ofbupivacaine and | | | | | | 40 mg of Aristospan was | | | | | | administeredintra-articu | | | | | | larly. There was high | | | | | | pressure within the | | | | | | joint andimmediate back | | | | | | flow of fluid from the | | | | | | joint following removal | | | | | | of thestylet FINDINGS: | | | | | | There is unchanged, | | | | | | severe, degenerative | | | | | | joint disease withmarked | | | | | | joint space narrowing, | | | | | | particularly medially. | | | | | | There are | | | | | | large,marginal | | | | | | osteophytes, | | | | | | particularly at the | | | | | | femoral head-neck | | | | | | junction.The high | | | | | | pressure and some | | | | | | discomfort following the | | | | | | arthrogram and | | | | | | theinjection of | | | | | | approximately 6-7 cc of | | | | | | injection, again | | | | | | indicatesadhesive | | | | | | capsulitis. The | | | | | | patient graded her pain | | | | | | at the beginning ofthe | | | | | | examination as 7/10 and | | | | | | following the | | | | | | examination, graded her | | | | | | painas 0/10. IMPRESSION: | | | | | | 1. Successful | | | | | | intra-articular hip | | | | | | joint injection with | | | | | | bupivacaineand | | | | | | Aristospan with | | | | | | improvement of pain from | | | | | | a 7/10 to 0/10 | | | | | | withmarked increased | | | | | | range of motion at the | | | | | | completion of the | | | | | | procedure. 2. Findings | | | | | | of adhesive capsulitis | | | | | | with high pressure small | | | | | | capacity joint. 3. | | | | | | Severe degenerative | | | | | | [...]
--- OUTSIDE RECORDS SUMMARY | ~2020-04-27 | XMS | Encounter Summary ---
Demographics + + + | Address | [address] | | | [place] [address] | + + + | Home Phone | | + + + | Preferred Language | Unknown | + + + | Marital Status | Single | + + + | Congregation Affiliation | PRE | + + + [...] Team Providers + +------+ + | Care Band Nailer Name | Role | Phone | + +------+ + PCP | Unavailable | + +------+ + Encounter Details +--------+ + + + + | Date | Type | Department | Care Team | Description | +--------+ + + + + | 03/14/ | Results | Orthopaedics at | Lloyd Garcia MD | | | 2000 | Only | [facility] [address] | | | | | | [address] | | | | | | Mailcode: PV430 | | | | | | [facility] | | | | | | [place], [place] | | | | | | [address] | | | | | | [phone] | | | +--------+ + + + [...] | KNEE, 4 VIEWS | Routin | 06/06/2000 | | Results for this | | | e | 9:30 AM | | procedure are in the | | | | PDT | | results section. | + +--------+ + + + | HIP, 2 VIEWS | Routin | 06/06/2000 | | Results for this | | | e | 9:30 AM | | procedure are in the | | | | PDT | | results section. | + +--------+ + + + | X-RAY SPINE | Routin | 06/06/2000 | | Results for this | | LUMBOSACRAL 4 VIEWS | e | 9:30 AM | | procedure are in the | | | | PDT | | results section. | + +--------+ + + + | X-RAY PELVIS 1 VIEW | Routin | 06/06/2000 | | Results for this | | | e | 9:30 AM | | procedure are in the | | | | PDT | | results section. | + +--------+ + + + | HIP, 2 VIEWS | Routin | 03/14/2000 | | Results for this | | | e | 8:00 AM | | procedure are in the | | | | PDT | | results section. | + +--------+ + + + | X-RAY PELVIS 1 VIEW | Routin | 03/14/2000 | | Results for this | | | e | 8:00 AM | | procedure are in the | | | | PDT | | results section. | + +--------+ + + + documented in this encounter Results SPINE LUMBOSACRAL 4 VIEWS (06/06/2000 9:30 AM PDT) + + + + + + | Component | Value | Ref Range | Performed | Pathologist | | | | | At | Signature | + + + + + + | SPINE, | Radiologist 1: | | | | | LUMBOSACRAL | NIKKIE WEBSTER | | | | | , 4 VIEW | SPINE WITH OBLIQUE | | | | | | IMAGES: 06/06/00 | | | | | | Dictated: 06/07/00 | | | | | | DISCUSSION: There is | | | | | | an anterior wedge | | | | | | deformity noted at T11. | | | | | | Thedegree of anterior | | | | | | wedging does not appear | | | | | | significantly changed | | | | | | fromthe previous study | | | | | | of September 1999 without | | | | | | further collapse. | | | | | | There isconcavity of | | | | | | the superior end plates | | | | | | of T12 and L1, which | | | | | | appearunchanged as well. | | | | | | No new compression | | | | | | deformities are | | | | | | identified.There is very | | | | | | mild degenerative | | | | | | changes noted of the | | | | | | lower lumbarspine with | | | | | | small anterior spur | | | | | | formation noted at L3-4. | | | | | | There isminimal disc | | | | | | space narrowing at L4-5. | | | | | | There is no evidence | | | | | | forspondylolysis or | | | | | | spondylolisthesis. | | | | | | IMPRESSION: 1. | | | | | | Unchanged appearance | | | | | | of the anterior wedge | | | | | | deformity at T11 andend | | | | | | plate concavity at T12 | | | | | | and L1 from the previous | | | | | | study of 10/30/99. 2. | | | | | | Mild degenerative | | | | | | changes of the lower | | | | | | lumbar spine. END OF | | | | | [...] + +---------+ + + PELVIS 1 VIEW (06/06/2000 9:30 AM PDT) + + + + + + | Component | Value | Ref Range | Performed | Pathologist | | | | | At | Signature | + + + + + + | PELVIS 1 | Radiologist 1: | | | | | VIEW | MARY WEBSTER | | | | | | AND RIGHT HIP TWO | | | | | | VIEWS: 06/06/00 | | | | | | Dictated: 06/07/00 | | | | | | DISCUSSION: There is a | | | | | | marked medial narrowing | | | | | | of the right hip | | | | | | jointspace. There is | | | | | | an osteophytic collar | | | | | | noted of the right | | | | | | femoralhead. | | | | | | Subchondral cystic | | | | | | change is noted within | | | | | | the femoral head aswell. | | | | | | This does not appear | | | | | | significantly changed | | | | | | from the prior studyof | | | | | | 03/14/00. No fractures | | | | | | are identified. The | | | | | | pubic symphysis | | | | | | ismaintained as well as | | | | | | the left hip. | | | | | | Visualized portion of | | | | | | thesacroiliac joints | | | | | | appear maintained. 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 END OF | | | | | | IMPRESSION: | | | | + + + + + + + + | Specimen | + + | | + + + +---------+ + + | Performing | Address | City/State/Zipcode | Phone Number | | Organization | | | | + +---------+ + + | [facility] DEPARTMENT OF | | | | | RADIOLOGY | | | | + +---------+ + + KNEE, 4 VIEWS (06/06/2000 9:30 AM PDT) + + + + + + | Component | Value | Ref Range | Performed | Pathologist | | | | | At | Signature | + + + + + + | KNEE, 4 | Radiologist 1: | | | | | VIEWS | JEB WEBSTER | | | | | | KNEE, AP STANDING, [place] | | | | | | [place], LATERAL | | | | | | AND [place]. | | | | | | 06/06/00 Dictated: | | | | | | 06/07/00 DISCUSSION: | | | | | | The joint spaces | | | | | | appear maintained. No | | | | | | fractures orsubluxations | | | | | | are seen. No | | | | | | significant degenerative | | | | | | changes areidentified. | | | | | | No erosive changes are | | | | | | present. No bony | | | | | | destructivelesion is | | | | | | seen. There is no | | | | | | evidence for joint | | | | | | effusion on thelateral | | | | | | image. The | | | | | | patellofemoral | | | | | | articulations are | | | | | | grosslyunremarkable on | | | | | | the [place]. | | | | | | IMPRESSION: No | | | | | | significant degenerative | | | | | | changes identified of | | | | | | the right knee. END OF | | | | | | IMPRESSION: | | | | + + + + + + + + | Specimen | + + | | + + + +---------+ + + | Performing | Address | City/State/Zipcode | Phone Number | | Organization | | | | + +---------+ + + | [facility] DEPARTMENT OF | | | | | RADIOLOGY | | | | + +---------+ + + HIP, 2 VIEWS (06/06/2000 9:30 AM PDT) + + + + + + | Component | Value | Ref Range | Performed | Pathologist | | | | | At | Signature | + + + + + + | HIP, 2 | Radiologist 1: | | | | | VIEWS | MARY WEBSTER | | | | | | AND RIGHT HIP TWO | | | | | | VIEWS: 06/06/00 | | | | | | Dictated: 06/07/00 | | | | | | DISCUSSION: There is a | | | | | | marked medial narrowing | | | | | | of the right hip | | | | | | jointspace. There is | | | | | | an osteophytic collar | | | | | | noted of the right | | | | | | femoralhead. | | | | | | Subchondral cystic | | | | | | change is noted within | | | | | | the femoral head aswell. | | | | | | This does not appear | | | | | | significantly changed | | | | | | from the prior studyof | | | | | | 03/14/00. No fractures | | | | | | are identified. The | | | | | | pubic symphysis | | | | | | ismaintained as well as | | | | | | the left hip. | | | | | | Visualized portion of | | | | | | thesacroiliac joints | | | | | | appear maintained. 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 END OF | | | | | [...] + +---------+ + + PELVIS 1 VIEW (03/14/2000 8:00 AM PDT) + + + + + + | Component | Value | Ref Range | Performed | Pathologist | | | | | At | Signature | + + + + + + | PELVIS 1 | Radiologist 1: TRIPP, | | | | | VIEW | Raegan HERRERA M.D.AP | | | | | | PELVIS CENTERED HIPS: | | | | | | 03/14/00 Dictated: | | | | | | 03/15/00 COMPARISON: | | | | | | 01/11/00. FINDINGS: | | | | | | Again noted is | | | | | | moderately advanced | | | | | | degenerative | | | | | | jointdisease of the | | | | | | right hip with diffuse | | | | | | joint narrowing and | | | | | | marginalosteophytes. | | | | | | This is not | | | | | | significantly changed. | | | | | | The narrowing | | | | | | appearsmost severe in | | | | | | the medial direction, | | | | | | however, I see no | | | | | | changes of | | | | | | aninflammatory | | | | | | arthritis. There is no | | | | | | fracture. Left hip | | | | | | appears normal. | | | | | | IMPRESSION: Moderately | | | | | | advanced degenerative | | | | | | joint disease right hip | | | | | | withoutsignificant | | | | | | changes. END OF | | | | | [...] + +---------+ + + HIP, 2 VIEWS (03/14/2000 8:00 AM PDT) + + + + + + | Component | Value | Ref Range | Performed | Pathologist | | | | | At | Signature | + + + + + + | HIP, 2 | Radiologist 1: TRIPP, | | | | | VIEWS | DALIA GONZALEZ, | | | | | | SHELBY Osei | | | | | | | | | | | | THE | | | | | | FINDINGS AND | | | | | | INTERPRETATIONS HAVE | | | | | | BEEN REPORTED ON | | | | | | [facility], ACC# [id number], | | | | | | DONE ON 14-MAR-2000 AT | | | | | | 8:00. | | | | + + + [...]
--- OUTSIDE RECORDS SUMMARY | ~2020-04-27 | XMS | Encounter Summary ---
Demographics + + + | Address | [address] | | | [place] [address] | + + + | Home Phone | | + + + | Preferred Language | Unknown | + + + | Marital Status | Single | + + + | Orthodoxy Affiliation | PRE | + + + | Race | White | + + + | Ethnic Group | Not or | + + + Author + + + | Author | [facility] | + + + | Organization | [facility] | + + + | Address [...] Team Providers + +------+ + | Care Machine Tailer Name | Role | Phone | + +------+ + PCP | Unavailable | + +------+ + Encounter Details +--------+ + + + + | Date | Type | Department | Care Team | Description | +--------+ + + + + | 02/11/ | Office | [facility] | Note, [...] as of this encounter Progress Notes Interface, Greens Picker In - 04/19/2006 3:09 AM PDTCLINIC DATE: 02/11/2003 [facility] Shelby Galdamez called the clinic today. She said that when she had an x-ray taken they told her she had a hernia in her groin. I gave the message to Dr. Garcia and his instructions were to call the patient back and tell her no that he did not see a report about her hernia in her records. He suggests that she call her PCP and schedule an appointment and have it evaluated. I called and left a message on her voice machine because she was not home also leaving our number if she had any questions. Jason Castano M.A. Orthopedics / HS [id number] / [id number] / [id number] / Tdocumented in this encounter Plan of Treatment Not on filedocumented as of this encounter Visit Diagnoses Not on filedocumented in this encounter"
--- OUTSIDE RECORDS SUMMARY | ~2020-04-27 | XMS | Encounter Summary ---
Demographics + + + | Address | [address] | | | [place] [address] | + + + | Home Phone | | + + + | Preferred Language | Unknown | + + + | Marital Status | | + + + | Adventism Affiliation | [id number] | + + + | Race | Unknown | + + + | Ethnic Group | Unknown | + + + Author + + + | Author | [facility] | | | and [place] | + + + | Organization | [facility] | | | [...] Team Providers + +------+ + | Care Gambling Supervisor Name | Role | Phone | + +------+ + | Eric Krishna MD | PCP | | + +------+ + Reason for Visit + + + | Reason | Comments | + + + | Medication Refill | | + + + Encounter Details +--------+--------+ + + + | Date | Type | Department | Care Team | Description | +--------+--------+ + + + | 08/29/ | Refill | [facility] | Cassius, | Medication Refill | | 2016 | | MEDICINE [address] | MD [address] | | | | | [address] [place], | [address] [place] | | | | | [place] [address] | [place] [address] | | | | | [phone] | [phone] | | | | | | | | +--------+--------+ + + + Social History + +-------+ +--------+------+ | Tobacco Use | Types | Packs/Day | Years | Date | | | | | Used | | + +-------+ +--------+------+ | Current Every Day | | 0.5 | 50 | | | Smoker | | | | | + +-------+ +--------+------+ + + +---------+ + | Alcohol [...] [place] | | | | | | [address] | | | | | | | | +--------+---------+ + + + documented as of this encounter Visit Diagnoses Not on filedocumented in this encounter"
--- OUTSIDE RECORDS SUMMARY | ~2020-04-27 | XMS | Encounter Summary ---
Demographics + + + | Address | [address] | | | [place] [address] | + + + | Home Phone | | + + + | Preferred Language | Unknown | + + + | Marital Status | Single | + + + | Bahai Affiliation | PRE | + + + | Race | White | + + + | Ethnic Group | Not or | + + + Author + + + | Author | [facility] | + + + | Organization | [facility] | + + + | Address [...] Providers + +------+ + | Care Head Tennis Coach Name | Role | Phone | + [...] | | | | Mailcode: PV430 | [facility] [place] | | | | | [facility] | [address] | | | | | [place], [place] | [phone] | | | | | [address] | | | | | | [phone] | | | +--------+ + + + [...]
--- OUTSIDE RECORDS SUMMARY | ~2020-04-27 | XMS | Encounter Summary ---
Demographics + + + | Address | [address] | | | [place] [address] | + + + | Home Phone [...] Team Providers + +------+ + | Care Orthotic Practitioner Name | Role | Phone | + +------+ + PCP | Unavailable | + +------+ + Encounter Details +--------+ + + + + | Date | Type | Department | Care Team | Description | +--------+ + + + + | 01/19/ | Office | [facility] | Note, [...] as of this encounter Progress Notes Interface, Wide Area Network Systems Administrator In - 04/28/2005 7:30 PM PDTClinic Date: 01/20/2004 Orthopedic History: A 43-year-old woman follows for a postoperative methicillin-sensitive Staphylococcus aureus and anaerobic right lateral hip wound infection after a right hip cheilectomy followed by open reduction internal fixation of loss of reduction of the greater trochanter. She had a pigtail catheter placed for a fluid pocket in her wound and was maintained on intravenous antibiotics in the form of nafcillin and converted to dicloxacillin and subsequently to Keflex and has completed a course of Flagyl as well. She right now has had the pigtail catheter removed and feels great. The hip actually feels much improved and is looking forward to returning to warm water aerobic exercise program for her hip arthritis. She has had no fevers, chills, or drainage from her wound. She reports that she completed her antibiotic course on Saturday, on January 15, 2004, and that the wound did have a piece of bone, approximately 3 x 5 mm 2 days ago, and after that this has healed up without difficulty. She has had complaints of a right palmar and the right medial mid leg and right knee swelling and ankle swelling. Physical Examination Vital signs: Her weight is 220 pounds, height is 5 feet 4 inches, respiratory rate 14, blood pressure 138/84, temperature 98.4, and pulse 86. Musculoskeletal: She ambulates with a right coxalgic gait, but this is mild. She does have a well-healed hip incision without cellulitis, lymphangitis, drainage, or fluctuance. There is a palpable bony mass consistent with heterotopic calcification just deep to the incision, but this is not tender. Laboratory Data: X-rays: None today. Assessment: No signs of active infection with healed wound after methicillin-sensitive Staphylococcus aureus and anaerobic bacterial infected right lateral hip wound after cheilectomy, complicated by need for open reduction internal fixation of loss of reduction of her greater trochanter followed by serial irrigation, debridement, and hardware removal. Disposition: I have provided her with a prescription for the warm water aerobic exercise program, should be done 3 times per week for 6 weeks and could be continued indefinitely if she can get the coverage for this and it proves to be beneficial. She will return to clinic should she develop any interval problems. No formal clinic followup is scheduled today. Lloyd Garcia M.D. Product Coordinator, Orthopedics and Rehabilitation / [id number] / [id number] / [id number] / [id number] cc: Ninfa Guillen M.D. [address] [place] [id number] signed by Interface, Wide Area Network Systems Administrator In at 04/28/2005 7:3 0 PM PDTdocumented in this encounter Plan of Treatment Not on filedocumented as of this encounter Visit Diagnoses Not on filedocumented in this encounter"
--- OUTSIDE RECORDS SUMMARY | ~2020-04-27 | XMS | Encounter Summary ---
Demographics + + + | Address | [address] | | | [place] [address] | + + + | Home Phone | | + + + | Preferred Language | Unknown | + + + | Marital Status | | + + + | Faith Affiliation | 1076 | + + + | Race | Unknown | + + + | Ethnic Group | Unknown | + + + Author + + + | Author | [facility] | | | and [place] | + + + | Organization | [facility] | | [...] Team Providers + +------+ + | Care Streetcar Operator Name | Role | Phone | + +------+ + PCP | Unavailable | + +------+ + Encounter Details +--------+ + + + + | Date | Type | Department | Care Team | Description | +--------+ + + + + | 12/07/ | [facility] | [facility] | Helio Ahn | | | 2002 | Encounter | MED CTR SLEEP | MD Candie [address] | | | | | CENTER [address] | [address] | | | | | [place] | [place] [address] | | | | | [address] | [phone] | | | | | [phone] | | | +--------+ + + + [...] [place] | | | | | | [address] | | | | | | | | +--------+---------+ + + + documented as of this encounter Visit Diagnoses Not on filedocumented in this encounter"
--- OUTSIDE RECORDS SUMMARY | ~2020-04-27 | XMS | Encounter Summary ---
Demographics + + + | Address | [address] | | | [place] [address] | + + + | Home Phone [...] + + + | Author | [facility] | + + + | Organization | [facility] | + + + | Address | Unknown | + + + | Phone | Unavailable | + + + Support + + + + + | Name | Relationship | Address | Phone | + + + + + | Casandra Smith | ROBERTO | [place] | | + + + + + Care Team Providers + +------+ + | Care Drainage Engineer Name | Role | Phone | [...] | | | | | osteoarthrit | [address] | [address] | | | | | is of left | Pankaj Bergman | Yasmany Gil | | | | | hip | Roxann Ayala | [facility] for | | | | | Procedures | [place], [place] | [facility] and | | | | | CONSULT TO | [address] | Healing, | | | | | BARIATRIC | Phone: | Building [address] | | | | | SURGERY | [phone] | [place], [place] | | | | | | Fax: | [address] | | | | | | [phone] | Phone: | | | | | | | | | | | | | | Fax: | | | | | | | [phone] | +--------+--------+ + + + + Reason [...] | | | | | | Rd [place], | | | | | | | [place] | | | | | | | [address] | | | | | | | Phone: | | | | | | | [phone] | | | | | | | Fax: | | | | | | | [phone] | +--------+--------+ + + + + Encounter Details +--------+---------+ + + + | Date | Type | Department | Care Team | Description | +--------+---------+ + + + | 10/02/ | Office | Orthopaedics | Royce Durand, | Primary | | 2019 | Visit | [facility] | [address] | osteoarthritis of | | | | for Health and | [address] | left hip (Primary | | | | Healing [address] | [facility] [place] | Dx); Left hip pain; | | | | [address] [facility] for | [address] | Smoking; Chronic | | | | Health and Healing, | [phone] | obstructive | | | | | | pulmonary disease, | | | | Floor [place], [place] | | unspecified COPD | | | | [address] | | type ([facility]); Class 3 | | | | [phone] | | severe obesity with | | [...] present | | | | | | ([facility]) | +--------+---------+ + + + Social [...] might be different fro m the original. [facility] DEPARTMENT OF ORTHOPAEDICS & REHABILITATION Adult Reconstruction [...] W-FE,OTHER MIN (CENTRUM ORAL), Take by mouth. [place]-3 Fatty Acids-Vitamin E (FISH OIL) 1,000 mg [...] The patient was offered a referral to [facility], for non-surgical and potentially surgical o [...] Porter MD 10/02/2018 10:09 AM | |Preliminary: Yeu Porter MD | |Dictation initiated: Yue Porter [...]
--- OUTSIDE RECORDS SUMMARY | ~2020-04-27 | XMS | Encounter Summary ---
Demographics + + + | Address | [address] | | | [place] [address] | + + + | Home Phone | | + + + | Preferred Language | Unknown | + + + | Marital Status | | + + + | Cheondoism Affiliation | 1076 | + + + | Race | Unknown | + + + | Ethnic Group | Unknown | + + + Author + + + | Author | [facility] | | | and [place] | + + + | Organization | [facility] | | | and [...] Team Providers + +------+ + | Care Estate Agent Name | Role | Phone | + +------+ + | Karli Hammonds | PCP | | | MD | | | + +------+ + Reason for Referral Evaluate & Treat (Routine) +--------+ + + + + + | Status | Reason | Specialty | Diagnoses / | Referred By | Referred To | | | | | Procedures | Contact | Contact | +--------+ + + + + + | Denied | Specialty | Gastroenterol | Diagnoses | Harri, | Harri, | | | Services | ogy | Abdominal | Augie Del Rosario MD | Augie Del Rosario MD | | | Required | | pain, | [address], | | | | | generalized | [place], [place] | [address] | | | | | Other | [address] [place] | [place], | | | | | symptoms | [place], [place] | [place] [address] | | | | | involving | [address] | Phone: | | | | | digestive | Phone: | [phone] | | | | | system([phone] | [phone] | Fax: | | | | | 9) Nausea | Fax: | [phone] | | | | | alone | [phone] | | | | | | Flatulence, | | | | | | | eructation, | | | | | | | and gas pain | | | | | | | Procedures | | | | | | | ME UPPER | | | | | | | GI | | | | | | | ENDOSCOPY,DI | | | | | | | AGNOSIS ME | | | | | | | UPPER GI | | | | | | | ENDOSCOPY,BI | | | | | | | OPSY ME | | | | | | | COLONOSCOPY, | | | | | | | DIAGNOSTIC | | | | | | | ME | | | | | | | COLONOSCOPY, | | | | | | | BIOPSY | | | | | | | 09/19 PEND | | | | | | | ODS | | | +--------+ + + + + + Encounter Details +--------+ + + + + | Date | Type | Department | Care Team | Description | +--------+ + + + + | 09/19/ | Orders Only | [facility] | Augie Valdivia MD | Abdominal pain, | | 2011 | | GASTROENTEROLOGY | [address], [place] | generalized (Primary | | | | [address] | [address] [place], [place] | Dx); Other symptoms | | | | [address] [place], [place] | [address] | involving digestive | | | | [address] | | system; Nausea | | | | [phone] | | alone; Flatulence, | | | | | | eructation, and gas | | | | | | pain | +--------+ + + + + Social [...] [place] | | | | | | [address] | | | | | | | | +--------+---------+ + + + + + +--------+ + + | Name | Type | Priori | Associated Diagnoses | Order Schedule | | | | ty | | | + + +--------+ + + | Ambulatory referral | Outpatient | Routin | Abdominal pain, | Expected: | | to Gastroenterology | Referral | e | generalized Other | 10/24/2012, Expires: | | | | | symptoms involving | 09/19/2013 | | | | | digestive system | | | | | | Nausea alone | | | | | | Flatulence, | | | | | | eructation, and gas | | | | | | pain | | + + +--------+ + + documented as of this encounter Visit Diagnoses + + | Diagnosis | + + | Abdominal pain, generalized - Primary | + + | Other symptoms involving digestive system(787.99) Other symptoms involving digestive | | system | + + | Nausea alone | + + | Flatulence, eructation, and gas pain | + + documented in this encounter"
--- OUTSIDE RECORDS SUMMARY | ~2020-04-27 | XMS | Encounter Summary ---
Demographics + + + | Address | [address] | | | [place] [address] | + + + | Home Phone | | + + + | Preferred Language | Unknown | + + + | Marital Status | Single | + + + | Scientology Affiliation | PRE | + + + | Race | White | + + + | Ethnic Group | Not or | + + + Author + + + | Author | [facility] | + + + | Organization | [facility] | + + + | Address [...] Team Providers + +------+ + | Care Inspector Firearms Name | Role | Phone | + +------+ + PCP | Unavailable | + +------+ + Encounter Details +--------+ + + + + | Date | Type | Department | Care Team | Description | +--------+ + + + + | 12/22/ | Office | [facility] | Note, Orthopedics | Progress Note | | 2003 | Visit-Trans | | Clinic | | [...] as of this encounter Progress Notes Interface, Photo Finish Photographer In - 04/28/2005 10:57 PM PDTClinic Date: 12/23/2003 Orthopedic History: A 43-year-old woman followed for a 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 Her history is well documented in my prior clinic notes. She has stopped her nafcillin, her PICC line has been removed, and she has been converted from dicloxacillin to Keflex which has improved her problems with diarrhea. She has also completed her course of Flagyl. She has had no fevers, although she has had a recent ear ache and runny nose for the past 3 days. She has been recording the output from her pigtail catheter in the loculated fluid cavity that was placed by Interventional Radiology. She has had 110 cc of that over the past 2 weeks which averaged about 8 cc per day and now she reports that she has 25 cc of the serosanguinous fluid since 9:00 p.m. last night which is inconsistent. She reports one episode of leg swelling last week not accompanied by shortness of breath or chest pain, which resolved, and she attributes to eating a Lebanese pork and vegetable lap dish called Happy [employer] - A New Musical. Physical Examination General: Shelby is in good spirits. Vital Signs: Her temperature is 987.4, blood pressure is 128/92, respiratory rate is 16, height 5 feet 4 inches, weight 220 pounds, and pulse 100. Extremities: The pigtail catheter is in place and is without any surrounding erythema. I am unable to express any fluid although there is a small amount of fluid on the dressing from around the tube. Diagnostic Studies: X-rays: No new x-rays today. Repeat ultrasound shows that the fluid cavity is septated and likely full of what is described as thick fluid now measures 3.1 x 3.6 x 1.3 cm compared by 4 x 10 cm and maximum dimensions back on November 03, 2003. This indicates to me that there is likely a five-fold greater decrease in volume. Laboratory Data: Laboratory studies indicate that her white blood cell count has increased to 11.3 from 9.1 two weeks ago. This is the first time that it has been above normal since September 28, 2003. Her differential is normal with the exception of her admirably elevated absolute monocyte count of 0.8, hematocrit is 35.5, her erythrocyte sedimentation rate is now 20, which is at the upper limit of normal and the first time that it has been normal with the exception of a likely spurious value of 3 on November 03, 2003, since we have been monitoring it. Her C-reactive protein level is pending but had been normal at 0.8, less than 0.3, and 0.4 since November 03, 2003. Assessment: Clinically healed right lateral hip wound with increasing drainage and no signs of active infection on Keflex. Disposition: I have advanced the catheter approximately 5 cm and advised her to continue the Keflex, continue to monitor the drain output, continue with drain site care, and return to clinic to see me in 2 weeks time with repeat C-reactive protein, erythrocyte sedimentation rate, and white blood cell count. At that point, I would like to repeat her ultrasound to see if the cavity continues to decrease in size or not. If the cavity does not decrease in size, it seems to me that there is no point to leaving the catheter in, and we should pull the catheter and see if an abscess develops. If the cavity does decrease in size, we may advance the drain steadily until it is discontinued and allow the cavity to close on its own. I would like to continue her antibiotics and feel her laboratories are all normal and hopefully this will be the case when she returns to clinic in 2 weeks time. I do not believe that she needs to remain on antibiotics just because the drain is in place. Lloyd Garcia M.D. Investigator Internal Affairs-Orthopedics and Rehabilitation / SALEEM [id number] / [id number] / [id number] / cc: Everett Guillen M.D. [address] [place] [id number] signed by Interface, Photo Finish Photographer In at 04/28/2005 10:57 PM PDTdocumented in this encounter Plan of Treatment Not on filedocumented as of this encounter Visit Diagnoses Not on filedocumented in this encounter"
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
--- OUTSIDE RECORDS SUMMARY | ~2020-04-27 | XMS | Encounter Summary ---
Demographics + + + | Address | [address] | | | [place] [address] | + + + | Home Phone [...] Team Providers + +------+ + | Care Clinic Coordinator Name | Role | Phone | + +------+ + PCP | Unavailable | + +------+ + Reason for Visit + + + | Reason | Comments | + + + | Follow-up visit | pelvis | + + + Consultation (Routine) +--------+--------+ + + + + | Status | Reason | Specialty | Diagnoses / | Referred By | Referred To | | | | | Procedures | Contact | Contact | +--------+--------+ + + + + | Closed | | Orthopedic | Diagnoses | Curtis, | [facility] | | | | Surgery / | | [place] | [address] | | | [...] | | | | | or | [address] | Pavilion | | | | | localized, | | [place], [place] | | | | | pelvic | | [address] | | | | | region and | | Phone: | | | | | thigh | | [phone] | | | | | Intervertebr | | Fax: | | | | | al lumbar | | [phone] | | | | | disc | | | | | | | disorder | | | | | | | with | | | | | | | myelopathy, | | | | | | | lumbar | | | | | | | region | | | | | | | OSTORTHROS | | | | | | | UNS GEN/LOC | | | | | | | PE. | | | | | | | INTERVERT | | | | | | | LUMBAR DISC | | | | | | | D/O-M | | | | | | | Procedures | | | | | | | OFFICE | | | | | | | VISIT..CONSU | | | | | | | LTATION. | | | +--------+--------+ + + + + Encounter Details +--------+---------+ + + + | Date | Type | Department | Care Team | Description | +--------+---------+ + + + | 02/11/ | Office | Orthopaedics at | Gino Baker MD | Osteoarthritis of | | 2005 | Visit | [address] | [address] [facility] | Hip (Primary Dx) | | | | [address] | [address] [place], | | | | | Mailcode: [id number] | [place] [address] | | | | | [facility] | | | | | | [place], [place] | | | | | | [address] | | | | | | [phone] | | | +--------+---------+ + + + [...] documented as of this encounter Progress Notes Gino Baker - 02/11/2006 11:21 AM PDTgood relief from injection.pt is 46 years old, very disabled and spends most of time in bed. discussed options and possible complications of tot al hip. I advise total hip. rom flex to 90. very limited adduction and abduction and rotatio on. pain in groin and buttock- both relieved by injection. documented in this encounter Plan of Treatment Not on filedocumented as of this encounter Visit Diagnoses + + | Diagnosis | + + | Osteoarthritis of hip - Primary Osteoarthrosis, unspecified whether generalized or | | localized, pelvic region and thigh | + + documented in this encounter"
--- OUTSIDE RECORDS SUMMARY | ~2020-04-27 | XMS | Encounter Summary ---
Demographics + + + | Address | [address] | | | [place] [address] | + + + | Home Phone | | + + + | Preferred Language | Unknown | + + + | Marital Status | Single | + + + | Christian Affiliation | PRE | + + + [...] Team Providers + +------+ + | Care Hazardous Material Specialist Name | Role | Phone | + +------+ + | No Pcp Per Patient | PCP | Unavailable | + +------+ + Reason for Visit + + + | Reason | Comments | + + + | RT Treatment Summary | | + + + Encounter Details +--------+ + + + + | Date | Type | Department | Care Team | Description | +--------+ + + + + | 09/08/ | Documentati | Radiation Oncology | Esmer Arcos MD | RT Treatment Summary | | 2007 | on | at [address] | [address] | | | | | [address] | [place], [place] | | | | | [place], [facility] floor | [address] | | | | | [place], [place] | [phone] | | | | | [address] | | | | | | [phone] | | | +--------+ + + + [...]
--- OUTSIDE RECORDS SUMMARY | ~2020-04-27 | XMS | Encounter Summary ---
Demographics + + + | Address | [address] | | | [place] [address] | + + + | Home Phone | | + + + | Preferred Language | Unknown | + + + | Marital Status | | + + + | Jehovah'S Witness Affiliation | 1076 | + + + [...] Team Providers + +------+ + | Care Digital Commentator Name | Role | Phone | + +------+ + | Karli Hammonds | PCP | | | MD | | | + +------+ + Reason for Visit +--------+--------+ + | Reason | Onset | Comments | | | Date | | +--------+--------+ + | Other | 03/08/ | | | | 2015 | | +--------+--------+ + Encounter Details +--------+ + + + + | Date | Type | Department | Care Team | Description | +--------+ + + + + | 03/08/ | Telephone | [facility] | Ladarius Martínez PA | Other | | 2016 | | SLEEP DISORDER [address] | [address] | | | | | [address] [place] | [place], [place] | | | | | [place] [address] | [address] | | | | | [phone] | | | +--------+ + + + [...] this encounter Miscellaneous Notes Telephone Encounter - Maegan Munoz, Wall Washer - 03/08/2016 1:09 PM PDTReceived hernan jacinto results of Nocturnal Pulse Oximetry while using CPAP on room air. Bo Live stated t here where desaturation below 88% for only 5.1 minutes not enough time that would warrant an d supplement of oxygen patient is to continue use of CPAP and to follow up at next follow up appointment. Patient has been called an notified and understands and is in agreement with hernan boone. [facility] Plan of Treatment +--------+---------+ + + + | Date | Type | Specialty | Care Team | Description | +--------+---------+ + + + | 05/23/ | Office | Pain Medicine | Xiang Sepulveda, | | | 2019 | Visit | | DO [address] | | | | | | [place] | | | | | | [id number] | | | | | | | | +--------+---------+ + + + documented as of this encounter Visit Diagnoses Not on filedocumented in this encounter"
--- OUTSIDE RECORDS SUMMARY | ~2020-04-27 | XMS | Encounter Summary ---
Demographics + + + | Address | [address] | | | [place] [address] | + + + | Home Phone [...] Author + + + | Author | [facility] | + + + | Organization | [facility] | + + + | Address [...] Team Providers + +------+ + | Care Juvenile Court Judge Name | Role | Phone | + +------+ + PCP | Unavailable | + +------+ + Reason for Visit +--------+ + | Reason | Comments | +--------+ + | Other | | +--------+ + Encounter Details +--------+ + + + + | Date | Type | Department | Care Team | Description | +--------+ + + + + | 06/27/ | Telephone | Orthopaedics at | Gino Baker MD | Other | | 2006 | | [address] | [address] | | | | | [address] | [address] [place], | | | | | Mailcode: [id number] | [place] [address] | | | | | [facility] | | | | | | [place], [place] | | | | | | [address] | | | | | | [phone] | | | +--------+ + + + [...]
--- OUTSIDE RECORDS SUMMARY | ~2020-04-27 | XMS | Encounter Summary ---
Demographics + + + | Address | [address] | | | [place] [address] | + + + | Home Phone [...] + + + | Author | [facility] | + + + | Organization | [facility] | + + + | [...] Team Providers + +------+ + | Care Gang Worker Name | Role | Phone | + +------+ + | Marta Jenkins CLINICAL RESEARCH TECH | PCP | | + +------+ + Encounter Details +--------+ + + + + | Date | Type | Department | Care Team | Description | +--------+ + + + + | 11/19/ | Documentati | Digestive Health | Wanda López ACNP | | | 2019 | on | Center at [facility] [address] | [address] | | | | | [address] [facility] | [address] [facility] | | | | | [facility] and | [place] [address] | | | | | Healing, [address] | [phone] | | | | | [place], [place] | | | | | | [address] | | | | | | [phone] | | | +--------+ + + + + Social History + + + +--------+------+ | Tobacco Use | Types | Packs/Day | Years | Date | | | | | Used | | + + + +--------+------+ | Current Every Day | Cigarettes | 0.5 | 40 | | | Smoker | | | | | + + + +--------+------+ + +---+---+---+ | Smokeless Tobacco: | | | | | Never Used | | | | + +---+---+---+ + + +---------+ + | Alcohol Use | Drinks/Week | oz/Week | Comments | + + +---------+ + | No | | | rare social | + [...]
--- OUTSIDE RECORDS SUMMARY | ~2020-04-27 | XMS | Encounter Summary ---
Demographics + + + | Address | [address] | | | [place] [address] | + + + | Home Phone [...] Team Providers + +------+ + | Care Chiropractic Assistant Name | Role | Phone | + +------+ + | Travis Mcginnis MD | PCP | | + +------+ + Reason for Visit + + + | Reason | Comments | + + + | Erroneous Encounter | | | - Disregard | | + + + Consultation (Routine) +--------+--------+ + + + + | Status | Reason | Specialty | Diagnoses / | Referred By | Referred To | | | | | Procedures | Contact | Contact | +--------+--------+ + + + + | Closed | | Physical | Diagnoses | Arias, | Erendira, | | | | Medicine and | Lumbar | Kalyan Barrientos MD | MD Vince | | | | Rehab / | radiculopath | [address] | [address] | | | | Orthopedics | y | [address] | [address] | | | | | Procedures | [address] | [address] [place], | | | | | CONSULT TO | [place], [place] | [place] | | | | | ORTHOPEDICS | [address] | [address] | | | | | AND | Phone: | Phone: | | | | | REHABILITATI | [phone] | [phone] | | | | | ON | Fax: | Fax: | | | | | | [phone] | [phone] | +--------+--------+ + + + + Encounter Details +--------+---------+ + + + | Date | Type | Department | Care Team | Description | +--------+---------+ + + + | 04/10/ | Office | Orthopaedic Spine | Krishna, Vince, MD | Back pain (Primary | | 2010 | Visit | Center at [facility] [address] | [address] | Dx) | | | | [address] | [address] [place], | | | | | Mailcode: [id number] | [place] [address] | | | | | [facility] | [phone] | | | | | and Healing, | | | | | | Building | | | | | | Floor [place], [place] | | | | | | [address] | | | | | | [phone] | | | +--------+---------+ + + + [...] + documented as of this encounter Progress Rustam Jaramillo - 05/15/2011 9:58 AM PDT This encounter was opened in error - no show. Please disregard this note. documented in this encounter Plan of Treatment Not on filedocumented as of this encounter Visit Diagnoses + + | Diagnosis | + + | Back pain - Primary Backache, unspecified | + + documented in this encounter"
--- OUTSIDE RECORDS SUMMARY | ~2020-04-27 | XMS | Encounter Summary ---
Demographics + + + | Address | [address] | | | [place] [address] | + + + | Home Phone [...] + + | Author | [facility] | + + + | Organization | [facility] | + + + | Address [...] Team Providers + +------+ + | Care Videotape Operator Name | Role | Phone | [...] | | [address] | [address] [place], | | | | | Mailcode: PV430 | [place] [address] | | | | | [facility] | | | | | | [place], [place] | | | | | | [address] | | | | | | [phone] | | | +--------+ + + + [...]
--- OUTSIDE RECORDS SUMMARY | ~2020-04-27 | XMS | Encounter Summary ---
Demographics + + + | Address | [address] | | | [place] [address] | + + + | Home Phone [...] Providers + +------+ + | Care Senior Solutions Architect Name | Role | Phone | + +------+ + PCP | Unavailable | + +------+ + Encounter Details +--------+ + + + + | Date | Type | Department | Care Team | Description | +--------+ + + + + | 09/16/ | Transcribed | | Dictation, Other | Transcribed | | 2001 | | | | | +--------+ + [...] as of this encounter Progress Notes Interface, Sapphire Stylus Grinder In - 06/19/2006 1:01 AM PDT [place] [facility] and [place] [address] [address], [place] [address] FAX Department of Orthopaedics, [facility] [id number] September 16, 2001 Kalyan Wu M.D. Department of Orthopedics and Rehabilitation [facility] RE: SHELBY GALDAMEZ MR #: [id number] DOS: 09/16/2001 Dear Nasir: I am referring Shelby Galdamez to you for an opinion and possible transfer of care regarding her right hip degenerative joint disease. She also has low back pain secondary to spondylosis and right knee degenerative joint disease. I have followed her for several years in efforts to delay right hip surgery. She is 41 years old and disabled and has obesity. Her weight has been increasing, and she now reports that her weight is over 250 pounds. She attributes this predominantly to increased pain in the buttock and low back region. I have treated her with a warm water hydrotherapy program and serial hip arthrograms with steroid injections. She had the best relief in her right hip after her most recent injection approximately 3 months ago which lasted for 5 weeks. However, the symptoms appear to be progressing, and I would like your opinion as to whether or not you believe that a cheilectomy or other joint sparing operations should be considered prior to proceeding with total joint arthroplasty. On physical examination, she continues to ambulate with a right coccyalgic gait and Trendelenburg gait. Hip range of motion is 0 to 120 degrees of flexion with 30 degrees of internal and external rotation with pain at the extremes. The left hip has slightly greater flexion, 6 degrees of external rotation and 30 degrees of internal rotation. Review of her prior x-rays shows a collar of osteophytes around the femoral neck and acetabulum with thin cartilage at the joint surface. Of note, she has also had a prior CT arthrogram which showed, by my review, no significantly good cartilage for a periacetabular osteotomy; however, you may like to review this; it is probably 2 years old at this point. ASSESSMENT 1. Progressive refractory right coxarthrosis. 2. Low back pain secondary to spondylosis and right knee pain secondary to degenerative joint disease. I have also prescribed a raised toilet seat with arms, a lift chair, and a walker with wheels for her, in addition to continuing with her exercise program. A prescription for indomethacin has been provided 50 mg p.o. t.i.d. Her primary care doctor has started her on Flexeril, and she has also inquiring regarding Vioxx, but has had good response to the indomethacin in the past. I have told her that I would be happy to perform her surgery for her if she prefers, although if she feels comfortable, I would also be happy to transfer her care to you at her discretion. Thank you for seeing Ms. Shelby Galdamez. If I may be of any additional assistance or provide additional information, please feel free to contact me directly. Sincerely, Lloyd Garcia M.D. [employer] / [id number] / [id number] / [id number] / [id number] C: 10/02/2001 [facility] cc: Helio Mann M.D. P.OJuan Jose [address] [id number] signed by Interface, Sapphire Stylus Grinder In at 06/19/2006 1: 01 AM PDTdocumented in this encounter Plan of Treatment Not on filedocumented as of this encounter Visit Diagnoses Not on filedocumented in this encounter"
--- OUTSIDE RECORDS SUMMARY | ~2020-04-27 | XMS | Encounter Summary ---
Demographics + + + | Address | [address] | | | [place] [address] | + + + | Home Phone | | + + + | Preferred Language | Unknown | + + + | Marital Status | | + + + | Lutheran Affiliation | 1076 | + + + | Race | Unknown | + + + | Ethnic Group | Unknown | + + + Author + + + | Author | [facility] | | | and [place] | + + + | Organization | [facility] | | | and [...] Providers + +------+ + | Care Public Health Clinical Nurse Specialist Name | Role | Phone | + +------+ + | Eric Krishna MD | PCP | | + +------+ + Encounter Details +--------+ + + + + | Date | Type | Department | Care Team | Description | +--------+ + + + + | 10/18/ | Hospital | [facility] | Conversion | Pain | | 2018 | Encounter | CONVERSION DEP [address] | Transaction, | | | | | ARNIE LYLES | Provider Unknown | | | | | [place] | [phone] | | | | | [address] | | | | | | [phone] | | | +--------+ + + + [...] + + + +---------+ + + | albuterol | Inhale 1 puff every | | 0 | /14/20 | | | (VENTOLIN HFA) 90 | 6 hours as needed | | | 12 | | | mcg/puff inhaler | for shortness of | | | | | | | breath | | | | | + + + +---------+ + + | albuterol 90 | Inhale 1 puff every | | 0 | 06/13/20 | | | mcg/puff inhaler | 6 hours as needed | | | 12 | | | | for shortness of | | | | | | | breath | | | | | + + + +---------+ + + | docusate sodium | Take 100 mg by mouth | | 0 | 06/13/20 | | | (COLACE) 100 mg | every 12 hours as | | | 12 | | | capsule | needed. | | | | | + + + +---------+ + + | omeprazole | Take 20 mg by mouth | | 0 | 06/13/20 | | | (PRILOSEC) 20 mg | Daily. | | | 12 | | | capsule | | | | | | + + + +---------+ + + | cyclobenzaprine | Take 10 mg by mouth | | 0 | 06/13/20 | | | (FLEXERIL) 10 mg | Twice daily as | | | 12 | 9 | | tablet | needed. | | | | | + + + +---------+ + + | oxyCODONE 10 MG | Take 5-10 mg by | | 0 | | | | TABS | mouth every 4 hours | | | | 9 | | | as needed. | | | | | + [...] [place] | | | | | | [address] | | | | | | | | +--------+---------+ + + + documented as of this encounter Procedures + +--------+ + + + | Procedure Name | Priori | Date/Time | Associated Diagnosis | Comments | | | ty | | | | + +--------+ + + + | XR LUMBAR SPINE 4 + | Routin | 10/14/2017 | | Results for this | | VW | e | 1:36 AM | | procedure are in the | | | | PST | | results section. | + +--------+ + + + documented in this encounter Results XR Lumbar Spine 4 + Vw (10/14/2017 1:36 AM PST) + + | Specimen | + + | | + + + + + | Narrative | Performed At | + + + | This is a non-reportable procedure without a radiologist report and | | | is used for image storage only | | + + + + + | Procedure Note | + + | Toan Jensen - 05/13/2019 2:40 PM PDT This is a non-reportable procedure | | without a radiologist report and isused for image storage only | + + documented in this encounter Visit Diagnoses + + | Diagnosis | + + | Pain Generalized pain | + + documented in this encounter"
--- OUTSIDE RECORDS SUMMARY | ~2020-04-27 | XMS | Encounter Summary ---
Demographics + + + | Address | [address] | | | [place] [address] | + + + | Home Phone [...] Team Providers + +------+ + | Care Packer Dried Beef Name | Role | Phone | + +------+ + PCP | Unavailable | + +------+ + Encounter Details +--------+ + + + + | Date | Type | Department | Care Team | Description | +--------+ + + + + | 05/29/ | Office | [facility] | Note, [...] as of this encounter Progress Notes Interface, Cook Dinner In - 07/14/2006 1:10 AM PDTCLINIC DATE: 05/29/2001 [facility] This is the patient of Dr. Lloyd Garcia. This patient called stating that the prescription that was called in is being denied by her insurance company and was asking us to call the insurance and see if we can get this denial reversed or get some type of authorization for her prescription. She stated that the prescription was Flexeril. I did call her insurance company at and spoke to Ms. Ty. Ms. Christy stated that this medication was preauthorized but only for a 6-month period and that preauthorization had . She stated because the patient is on more than one muscle relaxer that this does need to be preauthorized once again. I did give her the patient's diagnoses, the mg of Flexeril that she takes, and how often she takes this medication. With this information, Ms. Ty did approve this one prescription for a quantity of 20 only and stated that it would take her approximately 30 minutes to get this authorization in the system. Dariana Champion M.A. / [id number] / [id number] / [id number] / Watt Cook Dinner In - 07/10/2006 1:00 AM PDTCLINIC DATE: 05/29/2001 [facility]INIC This is a patient of Dr. Garcia. This patient called in stating that a script was called in for her, and the insurance was denying this. She was asking us to call her insurance company and see if we could get approval. I did have to call the patient back as to clarify what prescription was denied. She stated that it was her muscle relaxant, Flexeril. I did call her insurance at and spoke with Timbo. This premium representative stated that this prescription had been prior authorized for Shelby, but the prior authorization has . They also said that it needs to be authorized again mainly because the patient is on more than 1 muscle relaxer. I did answer her questions regarding the patient's diagnosis, the milligrams that she is taking, and how often she takes this, and Linocelia said that was enough information to again approve this, so she did give its approval over the phone. Dariana Champion M.A. / [id number] / [id number] / [id number] / Tdocumented in this encounter Plan of Treatment Not on filedocumented as of this encounter Visit Diagnoses Not on filedocumented in this encounter"
--- OUTSIDE RECORDS SUMMARY | ~2020-04-27 | XMS | Encounter Summary ---
Demographics + + + | Address | [address] | | | [place] [address] | + + + | Home Phone | | + + + | Preferred Language | Unknown | + + + | Marital Status | Single | + + + | Muslim Affiliation | PRE | + + + | Race | White | + + + | Ethnic Group | Not or | + + + Author + + + | Author | [facility] | + + + | Organization | [facility] | + + + | [...] Team Providers + +------+ + | Care Nitriles Lab Technician Name | Role | Phone | [...] as of this encounter Progress Notes Interface, Dancing Teacher In - 07/22/2006 3:18 AM PDTCLINIC DATE: [...] of the right knee. Lloyd Garcia M.D. paleology professor, Orthopedics and Rehabilitation. BIRGIT / SALEEM [id number] / [id number] / [id number] / [id number] cc: JILLIAN TODD MD [address] [facility] [id number] signed by Interface, Dancing Teacher In at 07/22/2006 3:1 8 AM PDTdocumented in this encounter Plan of Treatment Not on filedocumented as of this encounter Visit Diagnoses Not on filedocumented in this encounter"
--- OUTSIDE RECORDS SUMMARY | ~2020-04-27 | XMS | Encounter Summary ---
Demographics + + + | Address | [address] | | | [place] [address] | + + + | Home Phone [...] Team Providers + +------+ + | Care Workers Compensation Administrator Name | Role | Phone | + [...] | | Orthopedics | | Curtis, | Hugo, | | | | | | Quintin I | Kalyan Barrientos MD | | | | | | JOSE | [address] [facility] | | | | | | MEDICAL | [facility] | | | | | | CLINIC [address] [place], | | | | | | [address] | [place] | | | | | | [place], [place] | [address] | | | | | | [address] | Phone: | | | | | | | [phone] | | | | | | | Fax: | | | | | | | [phone] | +--------+--------+ + + + + Encounter Details +--------+---------+ + + + | Date | Type | Department | Care Team | Description | +--------+---------+ + + + | 05/13/ | Office | Orthopaedics at | Kalyan Colby MD | Osteoarthritis of | | 2007 | Visit | [facility] [address] | [address] | Hip; Postoperative | | | | [address] | [address] | Heterotopic | | | | Mailcode: [id number] | [place], [place] | Calcification; Back | | | | [facility] | [address] | Pain; Hip Pain | | | | [place], [place] | [phone] | | | | | [address] | | | | | | [phone] | | | +--------+---------+ + + + [...] + + + + | Temperature | 36.6 C (97.9 F) | 05/13/2008 11:19 AM | | | | | PDT [...] + + + + | Weight | 109.8 kg (242 lb) | 05/13/2008 11:19 AM | | | | | PDT | | + + + + + | Height | 162.6 cm (5' 4") | 05/13/2008 11:19 AM | | | | | PDT | | + + + + + | Body Mass Index | 41.54 | 05/13/2008 11:19 AM | | | | | PDT | | + + + + + documented in this encounter Progress Notes Kalyan Colby - 05/13/2008 1:02 PM PDTI performed a history and physical examination of t he patient and discussed her management with the resident. I reviewed and edited the reside nt s note and agree with the documented findings and plan of care. KALYAN COLBY MD [facility] [address] [facility] [phone] aRaul kasper - 8 12:04 PM PDT Orthopaedic Outpatient Consult Note: Reason for Consult: R hip pain and OA. 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 A greater troch osteotomy was performed for exposure and this subsequently went on to non-u nion. She had an ORIF of this and the wound became infected with MRSA. Multiple I&D's with w ound vac placement were undertaken with topper packer antibiotics until the infection cleared. She now has significant pain located mainly in groin and posterior buttock. Decribes pain g oing down lateral aspect of thigh with spasms. Pain is pressure and dull. Denies radicular p ain with Valsava. Uses cane for ambulation, but can really only walk around a store. Mostly has to stay in bed at home because of the pain. Has been given Hydrocodone without relief. H as had intra-articular injections prior to initial Cheilectomy procedure. PMHx: Past Medical History Diagnosis Date Asthma Abnormal Reflex gag Acid Reflux, gastric bleeding SOB (Shortness of Breath) Morbid Obesity Medications: ADVAIR DISKUS 100 MCG-50 MCG/DOSE FOR INHALATION, inhale 1 puff by inhalation route 2 times per day morning and eveningapproximately 12 hours apart ALBUTEROL SULFATE 200 MCG CAPS WITH INHALATION DEVICE, inhale the contents of one capsule b y inhalation route every 4 hours as needed CYCLOBENZAPRINE 10 MG TAB, take 1 tablet (10mg) by oral route 2 times per day LISINOPRIL-HYDROCHLOROTHIAZIDE 20 MG-12.5 MG TAB, take 1 tablet by oral route once daily LOVASTATIN 10 MG TAB, take 1 tablet (10mg) by oral route once daily with evening meal RANITIDINE 150 MG CAP, take 1 capsule (150mg) by oral route 2 times per day Allergies: Allergies Allergen Reactions Lipitor (atorvastatin Calcium) Sulfa (sulfonamides) Gives intestinal flu ROS: Denies shortness of breath, or chest pain. Denies nausea, or vomiting. No recent fevers, or chills. Otherwise negative review of systems except as noted in HPI. Social History: History Social History Marital Status: Single Spouse Name: N/A Number of Children: N/A Years of Education: N/A Occupational History Not on file. Social History Main Topics Tobacco Use: Yes -- 0.5 packs/day Alcohol Use: Yes Drug Use: No Sexually Active: Not on file Other Topics Concern Not on file Social History Narrative No narrative on file Exam: Temp 36.6 C (97.9 F) | Ht 1.626 m (5' 4") | Wt 109.77 kg (242 lbs) General: No apparent distress. Alert and oriented. Cooperative with exam. CV reg, Pulm clear, Abd soft Gait: Trandelenburg and Antalgic RLE: Hip: 15 degree hip flex contracture Incision well healed no drainage, palpable HO laterally Tenderness over trochanteric bursa Pain with internal and external rotation Forward flexion Internal Rotation External Rotation Abduction ROM 110 15 20 20 Knee: Not Tender to palpation medial joint line/lateral joint line/anterior knee No Pain with flexion and extension of knee Extension Flexion ROM 0 120 Motor: Hip flexion Knee Extension Ankle Plantarflexion EHL Ankle Dorsiflexion 5 5 5 5 5 Sensory: Sensation intact to light touch medial, lateral, dorsal, and plantar aspect of foot. Vascular: Palpable dorsalis pedis and posterior tibial pulses. Capillary refill <1 sec. LLE: Hip: No Tenderness over trochanteric bursa Pain with internal and external rotation Forward flexion Internal Rotation External Rotation Abduction ROM 120 30 45 45 Knee: Not Tender to palpation medial joint line/lateral joint line/anterior knee No Pain with flexion and extension of knee Extension Flexion ROM 0 120 Motor: Hip flexion Knee Extension Ankle Plantarflexion EHL Ankle Dorsiflexion 5 5 5 5 5 Sensory: Sensation intact to light touch medial, lateral, dorsal, and plantar aspect of foot. Vascular: Palpable dorsalis pedis and posterior tibial pulses. Capillary refill <1 sec. 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 CT scan shows diffuse HO formation laterally with severe femoral-acetabular OA. Assessment: Low back pain with ? Radicular sx, severe right hip OA, extensive HO right hip. HO excision and JUAN DAVID is indicated. This would be a complicated procedure. She reported so me irregular vaginal bleeding that should be addressed; she will see her PCP. She will sche dule a preop visit late May or June. documented in this encount er Plan of Treatment Not on filedocumented as of this encounter Visit Diagnoses + + | Diagnosis | + + | Osteoarthritis of hip Osteoarthrosis, unspecified whether generalized or localized, | | pelvic region and thigh | + + | Postoperative heterotopic calcification | + + | Back pain Backache, unspecified | + + | Hip pain Pain in joint, pelvic region and thigh | + + documented in this encounter
--- OUTSIDE RECORDS SUMMARY | ~2020-04-27 | XMS | Encounter Summary ---
Demographics + + + | Address | [address] | | | [place] [address] | + + + | Home Phone [...] Team Providers + +------+ + | Care Lighting Engineer Name | Role | Phone | [...] as of this encounter Progress Notes Interface, Gastroenterology Manager In - 04/28/2005 5:10 PM PDTClinic Date: [...] has been at her friend's house in [facility] and has been receiving IV antibiotics [...] Benson Boone M.D. Lloyd Garcia M.D. / [id number] / [id number] / [id number] / [id number] Tdocumented in this encounter Plan of Treatment Not on filedocumented as of this encounter Visit Diagnoses Not on filedocumented in this encounter"
--- OUTSIDE RECORDS SUMMARY | ~2020-04-27 | XMS | Encounter Summary ---
Demographics + + + | Address | [address] | | | [place] [address] | + + + | Home Phone | | + + + | Preferred Language | Unknown | + + + | Marital Status | | + + + | Buddhist Affiliation | 1076 | + + + | Race | Unknown | + + + | Ethnic Group | Unknown | + + + Author + + + | Author | [facility] | | | and [place] | + + + | Organization | [facility] | | [...] Team Providers + +------+ + | Care Body Maker Machine Setter Name | Role | Phone | + +------+ + | Jaimie Monreal MD | PCP | | + +------+ + Encounter Details +--------+ + + + + | Date | Type | Department | Care Team | Description | +--------+ + + + + | 07/08/ | [facility] | [facility] | Jasper Medrano, | Left hip pain | | 2019 | Encounter | [address] | | | | | [address] | [place] | | | | | [place], [place] | [address] | | | | | [address] | | | | | | [phone] | | | +--------+ + + + [...] + + + +---------+ + + | amLODIPine | Take 10 mg by mouth. | | 0 | 06/12/20 | | | (NORVASC) 10 MG | | | | 19 | | | tablet | | | | | | + + + +---------+ + + | docusate sodium | Take 100 mg by mouth | | 0 | 06/13/20 | | | (COLACE) 100 mg | every 12 hours as | | | 12 | | | capsule | needed. | | | | | + + + +---------+ + + | losartan (COZAAR) | Take 100 mg by | | 0 | 06/12/20 | | | 100 MG tablet | mouth. | | | 19 | | + + + +---------+ + + | omeprazole | Take 20 mg by mouth | | 0 | 06/13/20 | | | (PRILOSEC) 20 mg | Daily. | | | 12 | | | capsule | | | | | | + + + +---------+ + + | diclofenac | Take 1 tablet by | | 0 | 04/09/20 | | | (VOLTAREN) 75 mg EC | mouth 2 (two) times | | | 19 | 9 | | tablet | daily. | | | | | + + + +---------+ + + | | Take 1 tablet by | 120 | 0 | 06/29/20 | | | oxyCODONE-acetaminop | mouth every 4 hours | tablet | | 19 | 9 | | hen (PERCOCET) 5-325 | as needed for Pain | | | | | | mg per | for up to 30 days. | | | | | | tabletIndications: | | | | | | | Chronic pain | | | | | | | syndrome, | | | | | | | Radiculopathy of | | | | | | | lumbar region, DDD | | | | | | | (degenerative disc | | | | | | | disease), lumbar, | | | | | | | Facet arthropathy, | | | | | | | lumbar, | | | | | | | Osteoarthritis of | | | | | | | lumbar spine, | | | | | | | unspecified spinal | | | | | | | osteoarthritis | | | | | | | complication status | | | | | | + [...] DR | | | | | | [place] | | | | | | [address] | | | | | | | | +--------+---------+ + + + documented as of this encounter Procedures + +--------+ + + + | Procedure Name | Priori | Date/Time | Associated Diagnosis | Comments | | | ty | | | | + +--------+ + + + | XR HIP BILATERAL 2 | Routin | 07/08/2019 | Left hip pain | Results for this | | VIEWS | e | 10:48 AM | | procedure are in the | | | | PDT | | results section. | + +--------+ + + + documented in this encounter Results XR Hip Bilateral 2 Views (07/08/2019 10:48 AM PDT) + + | Specimen | + + | | + + + + + | Narrative | Performed At | + + + | [facility] | [facility] | | pelvis and 2 views of lateral hips which demonstrate a right total hip | | | arthroplasty in good position without evidence of loosening or | | | subsidence. However this is a erwwx-od-txgwn prosthesis. Did not | | | seem to be any significant ostial lysis around either of the | | | components. There is evidence in the femur of previously removed | | | hardware. 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 The left hip shows severe yozr-gt-ospc | | | arthritis without any evidence of residual joint space. There is | | | prominent sclerosis and marginal osteophyte formation and subchondral | | | cyst formation. The visualized lumbar spine show significant | | | degenerative changes. Jasper Medrano MD | | | | | |Jasper Medrano MD | | | | | | [...]
--- OUTSIDE RECORDS SUMMARY | ~2020-04-27 | XMS | Encounter Summary ---
Demographics + + + | Address | [address] | | | [place] [address] | + + + | Home Phone | | + + + | Preferred Language | Unknown | + + + | Marital Status | | + + + | Quaker Affiliation | 1076 | + + + | Race | Unknown | + + + | Ethnic Group | Unknown | + + + Author + + + | Author | [facility] | | | and [place] | + + + | Organization | [facility] | | | [...] Team Providers + +------+ + | Care Combination Machine Tool Operator Name | Role | Phone | [...] + + | 03/24/ | Office | [facility] | Xiang Sepulveda, | Back pain, | | 2019 | Visit | [facility] | DO [address] | unspecified back | | | | [address] | [place], [place] | location, | | | | [address] | [id number] | unspecified back | | | | [place], [place] | | pain laterality, | | | | [address] | | unspecified | | | | [phone] | | chronicity (Primary | | | [...] limited to phys ical therapy, child care worker, acupuncture, massage therapy, and nutritional health counse [...] Author Status Filed Medication Agreement Antonella Sprague, Pipe Puller Active 11/25/2019 10:52 AM Pain Contract- Dr. Sepulveda 11/25/2019 PEG Pain screening tool (Pain, enjoyment, general activity) Total score: (Printable questionnaires in Sinhala ) Interpretation of Total Score: PEG scores are used to track changes over time. It should de crease after therapy has begun. Last 4 PEG Scores: No flowsheet data found. Opioid Risk Tool (ORT): Total Score Temp: 36.7 C (98.1 F) Temp Source: Oral Pulse: 114 Resp: 24 BP: 156/85 SpO2: 96 % (From Chronic Pain tab; printable questionnaires in Sinhala) Interpretation of Total Score: 0 to 3 [...] situation as her home health worker and supervisor electronics assembly feel she requires 24/7 care and may need to be placed in an extended care facility. This wi ll be up to them and her primary care physician I explained. She does have an appointment w [facility] orthopedic surgery next week in [place]. Active range of motion bilateral upper extremities [...] reviewed, listed controlled substances are consistent with [facility] prescriptions and patient reported use. Controlled Medications: [...] physical therapy, massage therapy, acupuncture, child care worker, along with jabari mmended psychological counseling, either privately, or in group sessions offered by private care individuals, community services, or alevism organizations. Appropriate referrals were made at patient [...] and complications with the passage of time. long-term use is also associated with depressions, and [...] and coordination of care with other health acute care assistant and monitoring labs results, other test results and imagin g including [facility] and/or [facility] prescription monitoring systems. This document has been created using [employer] software and [employer]. The entry has been reviewed for content and accuracy, but there may still exist "sound alike" medical records manager word errors and/or unintended additions and deletions. [...] [place] | | | | | | [id number] | | | | | | | [...]
--- OUTSIDE RECORDS SUMMARY | ~2020-04-27 | XMS | Encounter Summary ---
Demographics + + + | Address | [address] | | | [place] [address] | + + + | Home Phone [...] Team Providers + +------+ + | Care Production Roustabout Name | Role | Phone | + +------+ + PCP | Unavailable | + +------+ + Reason for Visit + + + | Reason | Comments | + + + | Pre-op evaluation | | + + + Encounter Details +--------+---------+ + + + | Date | Type | Department | Care Team | Description | +--------+---------+ + + + | 08/16/ | Office | Preoperative | Colette, | Other Specified | | 2007 | Visit | [facility] at | WERNER Malik | Pre-Operative | | | | [facility] 4th Floor Day | | Examination (Primary | | | | Stay [address] | | Dx) | | | | [address] | | | | | | Mailcode: [id number] | | | | | | Rose [place]campo | | | | | | [address] [place], [place] | | | | | | [address] | | | | | | [phone] | | | +--------+---------+ + + + [...] + + + | Blood Pressure | 128/84 | 08/16/2008 2:21 PM | | | | | PST | | + + + + + | Pulse | 86 | 08/16/2008 2:21 PM | | | | | PST | | + + + + + | Temperature | 36.4 C (97.5 F) | 08/16/2008 2:21 PM | | | | | PST | | + + + + + | Respiratory Rate | 12 | 08/16/2008 2:21 PM | | | | | PST | | + + + + + | Oxygen Saturation | 98% | 08/16/2008 2:21 PM | | | | | PST | | + + + + + | Inhaled Oxygen | - | - | | | Concentration | | | | + + + + + | Weight | 112.5 kg (248 lb) | 08/16/2008 2:21 PM | | | | | PST | | + + + + + | Height | 162.6 cm (5' 4") | 08/16/2008 2:21 PM | | | | | PST | | + + + + + | Body Mass Index | 42.57 | 08/16/2008 2:21 PM | | | | | PST | | + + + + + documented in this encounter Progress Notes Helena Alvarenga - 08/16/2008 5:57 PM PSTSee Scanned H&P. documented in this e ncounter Plan of Treatment + + +--------+ + + | Name | Type | Priori | Associated Diagnoses | Order Schedule | | | | ty | | | + + +--------+ + + | LA COLLECTION VENOUS | Procedures | Routin | Other Specified | Ordered: 08/16/2008 | | BLOOD,VENIPUNCTURE | | e | Pre-Operative | | | | | | Examination | | + + +--------+ + + | PRODUCT- RED CELLS | Lab | Routin | Other Specified | Ordered: 08/16/2008 | | LEUKOREDUCED | | e | Pre-Operative | | | | | | Examination | | + + +--------+ + + documented as of this encounter Procedures + +--------+ + + + | Procedure Name | Priori | Date/Time | Associated Diagnosis | Comments | | | ty | | | | + +--------+ + + + | PRODUCT - RED CELLS | Routin | 08/16/2008 | | Results for this | | LEUKOREDUCED | e | 5:52 PM | | procedure are in the | | | | PST | | results section. | + +--------+ + + + | COMPLETE METABOLIC | Routin | 08/16/2008 | Other Specified | Results for this | | SET | e | 3:46 PM | Pre-Operative | procedure are in the | | (NA,K,CL,CO2,BUN,CRE | | PST | Examination | results section. | | AT,GLUC,CA,AST,ALT,B | | | | | | BRISEYDA TOTAL,ALK | | | | | | PHOS,ALB,PROT TOTAL) | | | | | + +--------+ + + + | CBC ONLY | Routin | 08/16/2008 | Other Specified | Results for this | | | e | 3:46 PM | Pre-Operative | procedure are in the | | | | PST | Examination | results section. | + +--------+ + + + | TYPE AND SCREEN | Routin | 08/16/2008 | Other Specified | Results for this | | | e | 3:46 PM | Pre-Operative | procedure are in the | | | | PST | Examination | results section. | + +--------+ + + + | 12 LEAD ECG | Routin | 08/16/2008 | Other specified | Results for this | | | e | 3:42 PM | pre-operative | procedure are in the | | | | PST | examination | results section. | + +--------+ + + + documented in this encounter Results PRODUCT- RED CELLS LEUKOREDUCED (08/16/2008 5:52 PM PST) + + + + + [...] + + + + | PRODUCT | [id number] | | [facility] | | | UNIT [...] + + + | STATUS OF | Presumed Transfused | | [facility] | | | UNIT [...] DEPARTMENT OF | [address] | [place] [address] | | | PATHOLOGY | [address] | | | + + + + + | [facility] DEPARTMENT OF | [address] | [place] [address] | | | PATHOLOGY | [address] [...] Performed At | + + + | [id number] Estimated GFR > 60 mL/min/1.73 sq m if non- | [facility] | | Malagasy [id number] Estimated GFR > 60 mL/min/1.73 sq m if | DEPARTMENT OF | | Malagasy GFR is estimated using the MDRD equation [...] + + + + + | [facility] | [facility] | [place] [address] | | | PATHOLOGY | [address] | | | + + + + + | [facility] | [address] [place] [address] | [place] [address] | | | PATHOLOGY | [address] [...] | + + + + + | [facility] DEPARTMENT OF | [address] [facility] | [place] [address] | | | PATHOLOGY | [address] | | | + + + + + | [facility] DEPARTMENT OF | [address] [facility] | [place] [address] | | | PATHOLOGY | [address] [...] | + + + + + | [facility] DEPARTMENT OF | [address] | [place] [address] | | | PATHOLOGY | [address] | | | + + + + + | [facility] DEPARTMENT OF | [address] | [place] [address] | | | PATHOLOGY | [address] | | | + + + + + 12 LEAD ECG (08/16/2008 3:42 PM PST) + + + + + + | Component | Value | Ref Range | Performed | Pathologist | | | | | At | Signature | + + + + + + | VENTRICULAR | 67 | BPM | [facility] | | | RATE | | | OF | | | | | | CARDIOLOGY | | + + + + + + | ATRIAL RATE | 67 | BPM | [facility] | | | | | | OF | | | | | | CARDIOLOGY | | + + + + + + | P-R | 150 | ms | [facility] | | | INTERVAL | | | OF | | | | | | CARDIOLOGY | | + + + + + + | QRS | 86 | ms | [facility] | | | DURATION | | | OF | | | | | | CARDIOLOGY | | + + + + + + | QT | 408 | ms | [facility] | | | | | | OF | | | | | | CARDIOLOGY | | + + + + + + | QTC | 431 | ms | [facility] | | | | | | OF | | | | | | CARDIOLOGY | | + + + + + + | P AXIS | 52 | degrees | [facility] | | | | | | OF | | | | | | CARDIOLOGY | | + + + + + + | R AXIS | 66 | degrees | [facility] | | | | | | OF | | | | | | CARDIOLOGY | | + + + + + + | T AXIS | 78 | degrees | [facility] | | | | | | OF | | | | | | CARDIOLOGY | | + + + + + + | EKG | Normal sinus | | [facility] | | | DIAGNOSIS | rhythmNormal ECG"I have | | OF | | | | personally interpreted | | CARDIOLOGY | | | | this report, either | | | | | | alone or with a | | | | | | trainee."Confirmed by | | | | | | JEEVAN SILVA ([id number]) on | | | | | | 17-Aug-2008 23:21:01 | | | | + + + + + + | LINK TO | | | [facility] | | | [employer] | | | OF | | | (ECG | | | CARDIOLOGY | | | VIEWER) | | | | | + + + + + + + + | Specimen | + + | | + + + + + | Narrative | Performed At | + + + | Please click | [facility] OF | | on view image for the detailed interpretation from [employer] results. | CARDIOLOGY | | | | + + + + + + + + | Performing | Address | City/State/Zipcode | Phone Number | | Organization | | | | + + + + + | [facility] OF | [address] | [place], [place] | | | CARDIOLOGY | [facility] | [address] | | + + + + + | [facility] OF | [address] | [place], [place] | | | CARDIOLOGY | [address] | [address] | | + + + + + documented in this encounter Visit Diagnoses + + | Diagnosis | + + | Other specified pre-operative examination - Primary | + + documented in this encounter
--- OUTSIDE RECORDS SUMMARY | ~2020-04-27 | XMS | Encounter Summary ---
Demographics + + + | Address | [address] | | | [place] [address] | + + + | Home Phone [...] Author + + + | Author | [facility] | + + + | Organization | [facility] | + + + | [...] Team Providers + +------+ + | Care Architectural Model Maker Name | Role | Phone | [...] as of this encounter Progress Notes Interface, Cattle Broker In - 11/23/2005 2:04 AM PST [id number] [facility] Date: 11/07/2005 Clinic: Orthopaedics Shelby Galdamez is a 46-year-old woman seen for evaluation of pain in the right hip and back. She provides a history that she was operated on in [address] Garcia at [facility] for osteoarthritis. She apparently had a cheilectomy [...] given a request to take home to [place] to see if she can get into [...] could formulate some plans. Her phone is #[phone]. Gino Baker M.D. KEE / SALEEM [id number] / [id number] / [id number] / [phone] cc: Quintin Acevedo [facility] [address] [place] [address] Electronically signed by Gino Baker 11-22-2005 02:58:59 PM documented i n this encounter Plan of Treatment Not on filedocumented as of this encounter Visit Diagnoses Not on filedocumented in this encounter"
--- OUTSIDE RECORDS SUMMARY | ~2020-04-27 | XMS | Encounter Summary ---
Demographics + + + | Address | [address] | | | [place] [address] | + + + | Home Phone [...] + + + | Author | [facility] | + + + | Organization | [facility] | + + + | Address [...] Team Providers + +------+ + | Care Gas And Oil Checker Name | Role | Phone | + +------+ + | Marta Jenkins FARE COLLECTOR | PCP | | + +------+ + [...] [address] | | | | | [place], [place] | [place], [place] | | | | | [address] | [address] | | | | | [phone] | [phone] | | | | | | | [...]
--- OUTSIDE RECORDS SUMMARY | ~2020-04-27 | XMS | Encounter Summary ---
Demographics + + + | Address | [address] | | | [place] [address] | + + + | Home Phone [...] Team Providers + +------+ + | Care Pedigree Researcher Name | Role | Phone | + +------+ + PCP | Unavailable | + +------+ + Encounter Details +--------+ + + + + | Date | Type | Department | Care Team | Description | +--------+ + + + + | 09/25/ | Results | | Luigi Matta, | | | 2002 | Only | | MD [facility] | [facility] | [facility] [address] | | | | | | [address] [place], | | | | | | [place] [address] | | | | | | [phone] | | | | | | | [...] X-RAY HIP 2 VIEWS | Routin | 09/25/2003 | | Results for this | | RIGHT | e | 4:02 AM | | procedure are in the | | | | PST | | results section. | + +--------+ + + + | C-REACTIVE PROTEIN | Urgent | 09/25/2003 | | Results for this | | | | 3:49 AM | | procedure are in the | | | | PST | | results section. | + +--------+ + + + | DIFFERENTIAL | Urgent | 09/25/2003 | | Results for this | | | | 3:16 AM | | procedure are in the | | | | PST | | results section. | + +--------+ + + + | CBC, WITH | Urgent | 09/25/2003 | | Results for this | | DIFFERENTIAL | | 3:16 AM | | procedure are in the | | | | PST | | results section. | + +--------+ + + + | SEDIMENTATION RATE | Urgent | 09/25/2003 | | Results for this | | | | 3:16 AM | | procedure are in the | | | | PST | | results section. | + +--------+ + + + documented in this encounter Results HIP 2 VIEWS RIGHT (09/25/2003 4:02 AM PST) + + + + + + | Component | Value | Ref Range | Performed | Pathologist | | | | | At | Signature | + + + + + + | HIP 2 VIEWS | Radiologist 1: TRIPP, | | | | | RIGHT | Raegan HERRERA, | | | | | | M.D.-Radiologist 2: | | | | | | Raegan ALMAGUER, | | | | | | M.D.RIGHT HIP, | | | | | | ANTEROPOSTERIOR AND | | | | | | LATERAL VIEWS: | | | | | | 09/25/2003 [id number] | | | | | | hours Dictated | | | | | | 09/25/2003 COMPARISON: | | | | | | 09/14/2003. FINDINGS: | | | | | | Since the previous | | | | | | study there has been | | | | | | intervaldevelopment of | | | | | | soft tissue gas deep to | | | | | | the staple line. No | | | | | | deep gascollections | | | | | | project over the hip. | | | | | | All of the screws and | | | | | | surgical hardware appear | | | | | | unchanged, and theplate | | | | | | still engages the | | | | | | greater trochanter. | | | | | | There is | | | | | | increasedlucency at the | | | | | | ostotomy site, which may | | | | | | be due to distraction | | | | | | and/orresorption. This | | | | | | has increased since the | | | | | | previous study. | | | | | | IMPRESSION: 1. | | | | | | Development of soft | | | | | | tissue gas deep to the | | | | | | staple line. 2. | | | | | | Increased distraction | | | | | | at the greater | | | | | | trochanteric osteotomy | | | | | | sincethe previous study. | | | | | | 3. No change in | | | | | | the appearance of the | | | | | | surgical hardware. END | | | | | | OF IMPRESSION: | | | | + + + + + + + + | Specimen | + + | | + + + +---------+ + + | Performing | Address | City/State/Zipcode | Phone Number | | Organization | | | | + +---------+ + + | [facility] DEPARTMENT OF | | | | | RADIOLOGY | | | | + +---------+ + + C-REACTIVE PROTEIN (09/25/2003 3:49 AM PST) + +---------+ + + + | Component | Value | Ref Range | Performed | Pathologist | | | | | At | Signature | + +---------+ + + + | C-REACTIVE | 7.7 (H) | <0.9 mg/dl | | | | PROTEIN | | | | | + +---------+ + + + + + | Specimen | + + | | + + + + + + + | Performing | Address | City/State/Zipcode | Phone Number | | Organization | | | | + + + + + | [facility] | [address] | [place] [address] | | | LABORATORY | | | | + + + + + SEDIMENTATION RATE (09/25/2003 3:16 AM PST) + +--------+ + + + | Component | Value | Ref Range | Performed | Pathologist | | | | | At | Signature | + +--------+ + + + | SEDIMENTATI | 94 (H) | <21 mm/hr | [facility] | [...] | + + + + + | [facility] DEPARTMENT | [address] [facility] | [place] [address] | | | PATHOLOGY | [address] | | | + + + + + | [facility] | [address] [facility] | [place] [address] | | | PATHOLOGY | [address] | | | + + + + + DIFFERENTIAL (09/25/2003 3:16 AM PST) + +---------+ + + + | Component | Value | Ref Range | Performed | Pathologist | | | | | At | Signature | + +---------+ + + + | NEUTROPHIL | 68 | 50 - 70 % | [facility] | | | % | | | DEPARTMENT | | | | | | OF | | | | | | PATHOLOGY | | + +---------+ + + + | LYMPHOCYTE | 22 | 18 - 42 % | [facility] | | | % | | | DEPARTMENT | | | | | | OF | | | | | | PATHOLOGY | | + +---------+ + + + | MONOCYTE % | 6 | 2 - 8 % | [facility] | | | | | | DEPARTMENT | | | | | | OF | | | | | | PATHOLOGY | | + +---------+ + + + | EOS % | 3 | 1 - 3 % | [facility] | | | | | | DEPARTMENT | | | | | | OF | | | | | | PATHOLOGY | | + +---------+ + + + | BASO % | 1 | <3 % | [facility] | | | | | | DEPARTMENT | | | | | | OF | | | | | | PATHOLOGY | | + +---------+ + + + | NEUTROPHIL | 8.2 (H) | 1.8 - 7.7 K/cu | [facility] | | | # | | mm | DEPARTMENT | | | | | | OF | | | | | | PATHOLOGY | | + +---------+ + + + | LYMPHOCYTE | 2.7 | 1.0 - 4.8 K/cu | [facility] | | | # | | mm | DEPARTMENT | | | | | | OF | | | | | | PATHOLOGY | | + +---------+ + + + | MONOCYTE # | 0.7 (H) | 0.1 - 0.6 K/cu | [facility] | | | | | mm | DEPARTMENT | | | | | | OF | | | | | | PATHOLOGY | | + +---------+ + + + | EOS # | 0.4 | <0.6 K/cu mm | [facility] | | | | | | DEPARTMENT | | | | | | OF | | | | | | PATHOLOGY | | + +---------+ + + + | BASO # | [...] | + + + + + | [facility] | [address] [facility] | [place] [address] | | | PATHOLOGY | [address] | | | + + + + + | [facility] | [address] [facility] | [place] [address] | | | PATHOLOGY | [address] | | | + + + + + CBC, WITH DIFFERENTIAL (09/25/2003 3:16 AM PST) + + + + + + | Component | Value | Ref Range | Performed | Pathologist | | | | | At | Signature | + + + + + + | WHITE CELL | 12.1 (H) | 4.4 - 11.0 K/cu | [facility] | | | COUNT | | mm | DEPARTMENT | | | | | | OF | | | | | | PATHOLOGY | | + + + + + + | RED CELL | 3.51 (L) | 3.65 - 5.10 | [facility] | | | COUNT | | M/cu mm | DEPARTMENT | | | | | | OF | | | | | | PATHOLOGY | | + + + + + + | HEMOGLOBIN | 9.7 (L) | 11.4 - 15.0 | [facility] | | | | | g/dL | DEPARTMENT | | | | | | OF | | | | | | PATHOLOGY | | + + + + + + | HEMATOCRIT | 29.5 (L) | 33.0 - 44.6 % | [facility] | | | | | | DEPARTMENT | | | | | | OF | | | | | | PATHOLOGY | | + + + + + + | MCV | 84.1 | 80.0 - 96.0 fL | [facility] | | | | | | DEPARTMENT | | | | | | OF | | | | | | PATHOLOGY | | + + + + + + | MCH | 27.7 (L) | 29.0 - 32.0 pg | [...] + + + + | PLATELET | 608 (H) | 150 - 400 K/cu | [facility] | | | COUNT | | mm | DEPARTMENT | | | | | | OF | | | | | | PATHOLOGY | | + + + + + + | MPV | 6.0 (L) | 7.4 - 10.4 fL | [...] | + + + + + | [facility] | [address] | [place] [address] | | | PATHOLOGY | [address] | | | + + + + + | [facility] | [address] | [place] [address] | | | PATHOLOGY | [address] | | | + + + + + documented in this encounter Visit Diagnoses Not on filedocumented in this encounter"
--- OUTSIDE RECORDS SUMMARY | ~2020-04-27 | XMS | Encounter Summary ---
Demographics + + + | Address | [address] | | | [place] [address] | + + + | Home Phone | | + + + | Preferred Language | Unknown | + + + | Marital Status | Single | + + + | Moravian Affiliation | PRE | + + + | Race | White | + + + | Ethnic Group | Not or | + + + Author + + + | Author | [facility] | + + + | Organization | [facility] | + + + | Address [...] Team Providers + +------+ + | Care Spool Tender Name | Role | Phone | + [...] | unspecified | [address] | Rd [place], | | | | | whether | [place], [place] | [place] | | | | | generalized | [address] | [address] | | | | | or | Phone: | Phone: | | | | | localized, | [phone] | [phone] | | | | | pelvic | Fax: | Fax: | | | | | region and | [phone] | [phone] | | | | | thigh | [...] Pavilion | | | | | | [place], [place] | | | | | | [address] | | | | | | [phone] | | | +--------+---------+ + + + [...] surgeries scheduled to take place on the fortescue at the [facility]: Surgeries scheduled in the [facility] ([address] [place] [address]): registration is located on the 4th floor of [facility] (Day Surgery). Surgeries scheduled in the [facility]: registration is located on the 9th floor. Surgeries scheduled in [facility]: registration is located on the 6th floor. Surgeries scheduled in the [facility]: registration is located i n the [facility] on the first floor. For surgeries scheduled to take place at the [facility]: registration is l ocated [...] If you use specialized medical equipment at [facility], please check with your provider before bringing [...] surgeries scheduled to take place on the fortescue at the [facility]: Surgeries scheduled in the [facility] ([address] [place] [address]): registration is located on the 4th floor of [facility] (Day Surgery). Surgeries scheduled in the [facility]: registration is located on the 9th floor. Surgeries scheduled in [facility]: registration is located on the 6th floor. Surgeries scheduled in the [facility]: registration is located i n the [facility] on the first floor. For surgeries scheduled to take place at the [facility]: registration is l [...] you use specialized medical equipment at [facility], please check with your provider before [...] infection has s calvin been cleared with watermelon harvesting supervisor antibiotics. In this time she has also [...] OF ACTION: see above PARQ: see above. [facility] umeunice in this encounter Plan of Treatment [...] Performed At | + + + | [id number] Estimated GFR > 60 mL/min/1.73 sq m if non- | [facility] | | [place] [id number] Estimated GFR > 60 mL/min/1.73 sq m if | DEPARTMENT OF | | [place] GFR is estimated using the MDRD equation [...] + + + + | [facility] | [address] | [place] [address] | | | PATHOLOGY | [address] | | | + + + + + | [facility] | [address] | [place] [address] | | | PATHOLOGY | [address] [...] + + + + | [facility] | [facility] | [place] [address] | | | PATHOLOGY | [address] | | | + + + + + | [facility] | [address] [facility] | [place] [address] | | | PATHOLOGY | [address] [...] | + + + + + | [facility] DE[facility] | [facility] | [place] [address] | | | PATHOLOGY | [address] | | | + + + + + | [facility] DEPART[facility] | [facility] | [place] [address] | | | PATHOLOGY | [address] [...] + + + + | PRODUCT | [id number] | | [facility] | | | UNIT [...] + + + + | [facility] | [address] [facility] | [place] [address] | | | PATHOLOGY | [address] | | | + + + + + | [facility] | [address] [place] [address] | [place] [address] | | | PATHOLOGY | [address] | | | + + + + + documented in this encounter Visit Diagnoses + + | Diagnosis | + + | Other specified pre-operative examination - Primary | + + documented in this encounter
--- OUTSIDE RECORDS SUMMARY | ~2020-04-27 | XMS | Encounter Summary ---
Demographics + + + | Address | [address] | | | [place] [address] | + + + | Home Phone [...] Team Providers + +------+ + | Care Non Profit Financial Controller Name | Role | Phone | + +------+ + PCP | Unavailable | + +------+ + Encounter Details +--------+ + + + + | Date | Type | Department | Care Team | Description | +--------+ + + + + | 09/05/ | Hospital | LAB BLOOD BANK | | | | 2007 | Encounter | [address] | | | | | | [place], | | | | | | [place] [address] | | | +--------+ + + + [...]
--- OUTSIDE RECORDS SUMMARY | ~2020-04-27 | XMS | Encounter Summary ---
Demographics + + + | Address | [address] | | | [place] [address] | + + + | Home Phone [...] Team Providers + +------+ + | Care Archivist Military History Name | Role | Phone | + +------+ + | Marta Jenkins PUZZLE ASSEMBLER | PCP | | + +------+ + [...] | Jamie Mailcode: [id number] [place], | | | | | [place], [place] | [place] [address] | | | | | [address] | | | | | | [phone] | | | +--------+ + + + [...] [facility]MENT | [address] | [address] | | | PATHOLOGY | [address] | | | + + + + + | [facility] DEPARTMENT OF | [address] | [address] | | | PATHOLOGY | [address] [...] | + + + + + | [facility] | [address] | [address] | | | PATHOLOGY | [address] | | | + + + + + | [facility] | [address] [place] [address] [place] | [address] | | | PATHOLOGY | [address] [...] | + + + + + | [facility] DEPARTMENT OF | [address] | [place] [address] | | | PATHOLOGY | [address] | | | + + + + + | [facility] DEPARTMENT OF | [address] | [place] [address] | | | PATHOLOGY | [address] [...] | | + +---------+ + + | [facility] DEPARTMENT OF | | | | | RADIOLOGY | | | | + +---------+ + + documented in this encounter Visit Diagnoses Not on filedocumented in this encounter"
--- OUTSIDE RECORDS SUMMARY | ~2020-04-27 | XMS | Encounter Summary ---
Demographics + + + | Address | [address] | | | [place] [address] | + + + | Home Phone | | + + + | Preferred Language | Unknown | + + + | Marital Status | Single | + + + | Mandaeism Affiliation | PRE | + + + | Race | White | + + + | Ethnic Group | Not or | + + + Author + + + | Author | [facility] | + + + | Organization | [facility] | + + + | Address | Unknown | + + + | Phone | Unavailable | + + + Support + + + + + | Name | Relationship | Address | Phone | + + + + + | Casandra Smith | ROBERTO | [place] | | + + + + + Care Team Providers + +------+ + | Care Dry Chain Puller Name | Role | Phone | + [...] | | | [address] | [address] [place], [place] | | | | | Mailcode: [id number] | [address] | | | | | [facility] | | | | | | [place], [place] | | | | | | [address] | | | | | | [phone] | | | +--------+ + + + [...] 10/30/99 | | | | | | [id number] hours. | | | | | | Dictated 11/01/99. | | | | | | FINDINGS: There is a | | | | | | shallow right rotatory | | | | | | lumbar convexity. | | | | | | [id number] S1 flexion | | | | | [...] | | + +---------+ + + | [facility] DEPARTMENT OF | | | | | RADIOLOGY | | | | + +---------+ + + documented in this encounter Visit Diagnoses Not on filedocumented in this encounter"
--- OUTSIDE RECORDS SUMMARY | ~2020-04-27 | XMS | Encounter Summary ---
Demographics + + + | Address | [address] | | | [place] [address] | + + + | Home Phone [...] Team Providers + +------+ + | Care Truss Driver Helper Name | Role | Phone | + +------+ + | Travis Mcginnis MD | PCP | | + +------+ + Encounter Details +--------+ + + + + | Date | Type | Department | Care Team | Description | +--------+ + + + + | 10/24/ | Abstract | Infectious | [facility] | | | 2010 | | Diseases at [facility] | MEGAN Reddy [address] | | | | | [address] | [address] | | | | | Loop Physician's | [place], [place] | | | | | [place], 3rd floor | [address] | | | | | [place], [place] | [phone] | | | | | [address] | | | | | | [phone] | | | +--------+ + + + [...] + | CBC, WITH | Routin | 10/24/2010 | | Results for this | | DIFFERENTIAL | e | | | procedure are in the | | | | | | results section. | + +--------+ + + + | COMPLETE METABOLIC | Routin | 10/24/2010 | | Results for this | | SET | e | | | procedure are in the | | (NA,K,CL,CO2,BUN,CRE | | | | results section. | | AT,GLUC,CA,AST,ALT,B | | | | | | BRISEYDA TOTAL,ALK | | | | | | PHOS,ALB,PROT TOTAL) | | | | | + +--------+ + + + documented in this encounter Results COMPLETE METABOLIC SET (NA,K,CL,CO2,BUN,CREAT,GLUC,CA,AST,ALT,BILI TOTAL,ALK PHOS,ALB,PROT TOTAL) (10/24/2010) + +---------+ + + + | Component | Value | Ref Range | Performed | Pathologist | | | | | At | Signature | + +---------+ + + + | GLUCOSE, | 151 (A) | 65 - 110 mg/dL | NON [facility] | | | PLASMA | | | LAB | | | (LAB) | | | | | + +---------+ + + + | BUN, PLASMA | 7 | mg/dL | NON [facility] | | | (LAB) | | | LAB | | + +---------+ + + + | CREATININE | 0.57 | mg/dL | NON [facility] | | | PLASMA | | | LAB | | | (LAB) | | | | | + +---------+ + + + | TOTAL | 6.2 | g/dL | NON [facility] | | | PROTEIN, | | | LAB | | | PLASMA | | | | | | (LAB) | | | | | + +---------+ + + + | ALBUMIN, | 3.1 | g/dL | NON [facility] | | | PLASMA | | | LAB | | | (LAB) | | | | | + +---------+ + + + | CALCIUM, | 8.4 | mg/dL | NON [facility] | | | PLASMA | | | LAB | | | (LAB) | | | | | + +---------+ + + + | BILIRUBIN | 0.2 | Transcutaneous | NON [facility] | | | TOTAL | | Bilirubinometer | LAB | | + +---------+ + + + | ALK PHOS | 60 | U/L | NON [facility] | | | | | | LAB | | + +---------+ + + + | AST(SGOT) | 12 | U/L | NON [facility] | | | | | | LAB | | + +---------+ + + + | SODIUM, | 139 | mmol/L | NON [facility] | | | PLASMA | | | LAB | | | (LAB) | | | | | + +---------+ + + + | POTASSIUM, | 4.6 | mmol/L | NON [facility] | | | PLASMA | | | LAB | | | (LAB) | | | | | + +---------+ + + + | CHLORIDE, | 101 | mmol/L | NON [facility] | | | PLASMA | | | LAB | | | (LAB) | | | | | + +---------+ + + + | TOTAL CO2, | 29 | mmol/L | NON [facility] | | | PLASMA | | | LAB | | | (LAB) | | | | | + +---------+ + + + | ALT (SGPT) | 19 | U/L | NON [facility] | | | | | | LAB | | + +---------+ + + + | C-REACTIVE | 40 | mg/dl | NON [facility] | | | PROTEIN | | | LAB | | + +---------+ + + + + + | Specimen | + + | Blood - Blood | + + + +---------+ + + | Performing | Address | City/State/Zipcode | Phone Number | | Organization | | | | + +---------+ + + | NON [facility] LAB | | | | + +---------+ + + CBC, WITH DIFFERENTIAL (10/24/2010) + +--------+ + + + | Component | Value | Ref Range | Performed | Pathologist | | | | | At | Signature | + +--------+ + + + | WHITE CELL | 15 | K/cu mm | NON [facility] | | | COUNT | | | LAB | | + +--------+ + + + | RED CELL | 4.03 | M/cu mm | NON [facility] | | | COUNT | | | LAB | | + +--------+ + + + | HEMOGLOBIN | 11 (A) | 12.1998 - 15 | NON [facility] | | | | | g/dL | LAB | | + +--------+ + + + | HEMATOCRIT | 35.6 | % | NON [facility] | | | | | | LAB | | + +--------+ + + + | MCV | 88.5 | fL | NON [facility] | | | | | | LAB | | + +--------+ + + + | MCH | 27 | pg | NON [facility] | | | | | | LAB | | + +--------+ + + + | MCHC | 31 | g/dL | NON [facility] | | | | | | LAB | | + +--------+ + + + | PLATELET | 609 | K/cu mm | NON [facility] | | | COUNT | | | LAB | | + +--------+ + + + | NEUTROPHIL | 78 | % | NON [facility] | | | % | | | LAB | | + +--------+ + + + | LYMPHOCYTE | 15.3 | % | NON [facility] | | | % | | | LAB | | + +--------+ + + + | MONOCYTE % | 3.4 | % | NON [facility] | | | | | | LAB | | + +--------+ + + + | EOS % | 2.8 | % | NON [facility] | | | | | | LAB | | + +--------+ + + + | BASO % | 0.5 | % | NON [facility] | | | | | | LAB | | + +--------+ + + + | RDW | 14.8 | % | NON [facility] | | | | | | LAB | | + +--------+ + + + | MPV | | fL | NON [facility] | | | | | | LAB | | + +--------+ + + + | NEUTROPHIL | | K/cu mm | NON [facility] | | | # | | | LAB | | + +--------+ + + + | LYMPHOCYTE | | K/cu mm | NON [facility] | | | # | | | LAB | | + +--------+ + + + | MONOCYTE # | | K/cu mm | NON [facility] | | | | | | LAB | | + +--------+ + + + | EOS # | | K/cu mm | NON [facility] | | | | | | LAB | | + +--------+ + + + | BASO # | | | NON [facility] | | | | | | LAB | | + +--------+ + + + | SEDIMENTATI | 112 | mm/hr | NON [facility] | | | ON RATE | | | LAB | | + +--------+ + + + + + | Specimen | + + | Blood - Blood | + + + +---------+ + + | Performing | Address | City/State/Zipcode | Phone Number | | Organization | | | | + +---------+ + + | NON [facility] | | | | + +---------+ + + documented in this encounter Visit Diagnoses Not on filedocumented in this encounter"
--- OUTSIDE RECORDS SUMMARY | ~2020-04-27 | XMS | Encounter Summary ---
Demographics + + + | Address | [address] | | | [place] [address] | + + + | Home Phone [...] Team Providers + +------+ + | Care Volunteer Recruiter Name | Role | Phone | + +------+ + PCP | Unavailable | + +------+ + Encounter Details +--------+ + + + + | Date | Type | Department | Care Team | Description | +--------+ + + + + | // | Results | | Other, Faculty | | | 2003 | Only | | [phone] | | +--------+ + + + + [...] | + + + + + | [facility] DEPARTMENT OF | [address] | [place] [address] | | | PATHOLOGY | [address] | | | + + + + + | [place] DEPARTMENT OF | [address] | [place] [address] | | | PATHOLOGY | [address] [...] | + + + + + | [facility] OF | [address] | [place] [address] | | | PATHOLOGY | [address] | | | + + + + + | [facility] OF | [address] | [place] [address] | | | PATHOLOGY | [address] [...] + + + | [facility] | [address] | [place] [address] | | | LABORATORY | | | [...] DEPARTMENT OF | [address] | [place] [address] | | | PATHOLOGY | [address] | | | + + + + + | [facility] DEPARTMENT OF | [address] | [place] [address] | | | PATHOLOGY | [address] [...] | + + + + + | [facility] DEPARTMENT OF | [address] | [place] [address] | | | PATHOLOGY | [address] | | | + + + + + | [facility] DEPARTMENT OF | [address] | [place] [address] | | | PATHOLOGY | [address] [...] | + + + + + | [facility] DEPARTMENT OF | [facility] [address] | [place] [address] | | | PATHOLOGY | [address] | | | + + + + + | [place] DEPARTMENT OF | [address] | [place] [address] | | | PATHOLOGY | [address] [...] + + + | [facility] | [address] | [place] [address] | | | PATHOLOGY | [address] | | | + + + + + | [facility] | [address] [place] [address] | [place] [address] | | | PATHOLOGY | [address] [...] + + + | [facility] | [address] | [place] [address] | | | PATHOLOGY | [address] | | | + + + + + | [facility] | [facility] | [place] [address] | | | PATHOLOGY | [address] [...] DEPARTMENT OF | [address] | [place] [address] | | | PATHOLOGY | [address] | | | + + + + + | [facility] DEPARTMENT OF | [address] | [place] [address] | | | PATHOLOGY | [address] | | | + + + + + CREATININE, PLASMA (10/04/2003 6:15 AM PST) + +-------+ + + + | Component | Value | Ref Range | Performed | Pathologist | | | | | At | Signature | + +-------+ + + + | CREATININE | 0.8 | 0.6 - 1.1 mg/dL | [facility] | | | PLASMA | | | [...] | + + + + + | [facility] DEPARTMENT OF | [address] | [place] [address] | | | PATHOLOGY | [address] | | | + + + + + | [facility] DEPARTMENT OF | [address] | [place] [address] | | | PATHOLOGY | [address] [...] DEPARTMENT OF | [address] | [place] [address] | | | PATHOLOGY | [address] | | | + + + + + | [facility] DEPARTMENT | [address] | [place] [address] | | | PATHOLOGY | [address] [...] 10.8 | 4.4 - 11.0 K/cu | [facility] | | | COUNT | | mm | DEPARTMENT | | | | | | OF | | | | | | PATHOLOGY | | + + + + + + | RED CELL | 2.34 (L) | 3.65 - 5.10 | [facility] [...] | + + + + + | [facility] DEPARTMENT OF | [address] | [place] [address] | | | PATHOLOGY | [address] | | | + + + + + | [facility] DEPARTMENT OF | [address] | [place] [address] | | | PATHOLOGY | [address] [...] + + + | [facility] | [address] | [place] [address] | | | PATHOLOGY | [address] | | | + + + + + | [facility] | [address] | [place] [address] | | | PATHOLOGY | [address] | | | + + + + + documented in this encounter Visit Diagnoses Not on filedocumented in this encounter"
--- OUTSIDE RECORDS SUMMARY | ~2020-04-27 | XMS | Encounter Summary ---
Demographics + + + | Address | [address] | | | [place] [address] | + + + | Home Phone | | + + + | Preferred Language | Unknown | + + + | Marital Status | Single | + + + | Samaritan Affiliation | PRE | + + + [...] Team Providers + +------+ + | Care Home Maker Name | Role | Phone | + +------+ + PCP | Unavailable | + +------+ + Encounter Details +--------+ + + + + | Date | Type | Department | Care Team | Description | +--------+ + + + + | 09/29/ | Procedure - | | Documentation, | [...] + + | TEACHING PHYSICIAN | | 09/29/2003 | | | + +--------+ + + + documented in this encounter Visit Diagnoses Not on filedocumented in this encounter"
--- OUTSIDE RECORDS SUMMARY | ~2020-04-27 | XMS | Encounter Summary ---
Demographics + + + | Address | [address] | | | [place] [address] | + + + | Home Phone [...] Team Providers + +------+ + | Care Ride Attendant Name | Role | Phone | + +------+ + | Eric Krishna MD | PCP | | + +------+ + Encounter Details +--------+ + + + + | Date | Type | Department | Care Team | Description | +--------+ + + + + | 12/04/ | Hospital | C GENERIC IP | Conversion | Pain | | 2018 | Encounter | CONVERSION DEP 888 | Transaction, | | | | | ARNIE [address]YLES | Provider Unknown | | | | | [place] | [phone] | | | | | [address] | | | | | | [phone] | | | +--------+ + + + [...] [place] | | | | | | [address] | | | | | | | | +--------+---------+ + + + documented as of this encounter Procedures + +--------+ + + + | Procedure Name | Priori | Date/Time | Associated Diagnosis | Comments | | | ty | | | | + +--------+ + + + | MRI LUMBAR SPINE WO | Routin | 11/27/2017 | | Results for this | | CONTRAST | e | 11:11 PM | | procedure are in the | | | | PST | | results section. | + +--------+ + + + documented in this encounter Results MRI Lumbar Spine wo Contrast (11/27/2017 11:11 PM PST) + + | Specimen | + [...]
--- OUTSIDE RECORDS SUMMARY | ~2020-04-27 | XMS | Encounter Summary ---
Demographics + + + | Address | [address] | | | [place] [address] | + + + | Home Phone [...] Team Providers + +------+ + | Care Translator Name | Role | Phone | + +------+ + | No Pcp Per Patient | PCP | Unavailable | + +------+ + Encounter Details +--------+ + + + + | Date | Type | Department | Care Team | Description | +--------+ + + + + | 10/13/ | Business Administration Professor | Orthopaedics at | Tesfaye Saenz | Osteoarthritis of | | 2008 | | [facility] [address] | [address] | Hip (Primary Dx) | | | | [address] | | | | | | Mailcode: [id number] | | | | | | [facility] | | | | | | [place], [place] | | | | | | [address] | | | | | | [phone] | | | +--------+ + + + [...] | | + +---------+ + + | [facility] DEPARTMENT OF | | | | [...]
--- OUTSIDE RECORDS SUMMARY | ~2020-04-27 | XMS | Encounter Summary ---
Demographics + + + | Address | [address] | | | [place] [address] | + + + | Home Phone [...] Team Providers + +------+ + | Care Four Roll Calender Operator Name | Role | Phone | + +------+ + PCP | Unavailable | + +------+ + Encounter Details +--------+ + + + + | Date | Type | Department | Care Team | Description | +--------+ + + + + | 10/15/ | Transcribed | | Dictation, Other | Transcribed | | 2002 | | | | [...] as of this encounter Progress Notes Interface, Compounding Pharmacy Technician In - 06/19/2006 1:01 AM PDT [place] [facility] [place] [address], [place] [address] FAX Department of Orthopaedics, [facility] [employer] [id number] October 15, 2001 Lloyd Garcia M.D. Department of Orthopedics and Rehabilitation/[facility] [id number] RE: SHELBY GALDAMEZ MR #: [id number] DOS: 10/15/[address] Desai: Thank you for the opportunity to evaluate Shelby Galdamez in consultation for her right hip pain. As you know, Shelby is a 41-year-old female who presents for evaluation of right hip pain. She has had progressive pain over the last several years. The pain is localized in the groin or buttock and even down in her knee. She also has a history of low back pain and has been evaluated by Dr. Cooper. He did not feel that this was surgical in nature and did because of her young age and recommended a possible hip fusion. I have been asked for a consultation to determine if there is any role in her care for pelvic or femoral osteotomy to help relieve some of her symptoms and delaying her timing for a total hip replacement. She has had a previous hip injection which gave her almost complete relief of her hip, groin, and lateral buttock pain. However, her low back pain on the right was not affected by this. She feels that this is at least 50% of her pain. Past medical history is for reactive upper airways disease and history of depression. Allergies are no known drug allergies. Review of systems is negative for heart. The patient denies any chest pain or shortness of breath or abdominal complaints. On physical examination, she is a pleasant female in no acute distress. She is alert and oriented x 3. Her affect is appropriate. She walks with a limp on the right hip. She has no surgical scars over the right hip. She has very limited and painful hip range of motion. She does not have actual true trochanteric tenderness to palpation. She has a hip flexion contracture, but it is really difficult for me to examine because it is painful for her. She is able to plantar flex and dorsiflex her right foot. Her sensation is intact to light touch. She has a palpable posterior tibial pulse. The left extremity has a good hip range of motion and is nontender with trochanteric tenderness and an intact motor, vascular, and sensory exam. I personally read the radiograph of the pelvis which shows she has pending relative ( ) of her femoral head with medial and inferior joint space narrowing consistent with osteoarthrosis of the hip. IMPRESSION 1. Osteoarthritis of the right hip. 2. Low back pain. PLAN: At this point, I would not recommend any pelvic or femoral osteotomy to be performed. I think her only real option is a hip replacement. I would consider obtaining a consult from Dr. Krishna to see if there are any nonoperative modalities for her back pain since I do think that this is at least 50% of the overall pain. I have explained these recommendations in detail to Ms. Galdamez. She is going to follow back up with you for further care at this point. Thank you Lloyd for the opportunity to participate in the care of this patient. Sincerely, Kalyan Wu M.D. TE / HS [id number] / [id number] / [id number] / [id number] cc: Chan Krishna M.D. Department of Orthopedics and Rehabilitation/[facility] OP-31 Helio Noland M.D. [address] [place], [place] [email or web address] signed by Interface, Compounding Pharmacy Technician In at 06/19/2006 1: 01 AM PDTdocumented in this encounter Plan of Treatment Not on filedocumented as of this encounter Visit Diagnoses Not on filedocumented in this encounter"
--- OUTSIDE RECORDS SUMMARY | ~2020-04-27 | XMS | Encounter Summary ---
Demographics + + + | Address | [address] | | | [place] [address] | + + + | Home Phone [...] Team Providers + +------+ + | Care Auditing Coder Name | Role | Phone | + +------+ + | Yuki Pantoja MD | PCP | | + +------+ + Encounter Details +--------+ + + + + | Date | Type | Department | Care Team | Description | +--------+ + + + + | 07/07/ | Hospital | Diagnostic | | | | 2008 | Encounter | Radiology at [facility] | | | | | | [address] | | | | | | [address] [facility] | | | | | | [place], [facility] Floor | | | | | | [place], [place] | | | | | | [address] | | | | | | [phone] | | | +--------+ + + + [...] | + + + +---------+--------+ + | omeprazole | Take 40 mg [...] X-RAY HIP 2 VIEWS | Routin | 07/07/2009 | Osteoarthritis of | Results for this | | RIGHT W/ PELVIS 1 | e | 12:17 PM | Hip | procedure are in the | | VIEW | | PDT | | results section. [...] X-RAY HIP 2 | Med Rec No: [id number] | | | | | VIEWS | Name: | | | | | RIGHT W/ | SHELBY GALDAMEZ C | | | | | PELVIS 1 | Birthday: 1960 | | | | | VIEW | Sex: F | | | | | | Alias:Patient Location: | | | | | | [id number]: Outpatient | | | | | | ActiveOrdering | | | | | | Physician: TYRONE | | | | | | COLBY,ISAACIPELR1 HIP 2 | | | | | | VIEWS RIGHT W/ PELVIS 1 | | | | | | VIEW completed on | | | | | | 07/07/200912:17 | | | | | | PMAccession # | | | | | | [id number]:PELVIS | | | | | | ONE [...] LIONEL | | | | | | MalcomReviewer: MOSHE | | | | | | Malcom FLOWERSSTATUS | | | | | | FINAL / Dr. MESA | | | | | | ARNAUDUS | | | | | | PRELIMINARY [...]
--- OUTSIDE RECORDS SUMMARY | ~2020-04-27 | XMS | Encounter Summary ---
Demographics + + + | Address | [address] | | | [place] [address] | + + + | Home Phone [...] Team Providers + +------+ + | Care Revenue Tax Specialist Name | Role | Phone | [...] | | | | Mailcode: [id number] | [facility] [place] | | | | | [facility] | [address] | | | | | [place], [place] | [phone] | | | | | [address] | | | | | | [phone] | | | +--------+ + + + [...]
--- OUTSIDE RECORDS SUMMARY | ~2020-04-27 | XMS | Encounter Summary ---
Demographics + + + | Address | [address] | | | [place] [address] | + + + | Home Phone [...] Team Providers + +------+ + | Care Heavy Machinery Assembler Name | Role | Phone | [...] | | | | JOSE | [address] [facility] | | | | | | MEDICAL | [facility] | | | | | | CLINIC [address] [place], | | | | | | [address] | [place] | | | | | | [place], [place] | [address] | | | | | | [address] | Phone: | | | | | | | [phone] | | | | | | | Fax: | | | | | | | [phone] | +--------+--------+ + + + + Encounter [...] | | | | Mailcode: [id number] | [place], [place] | Calcification; Back | | | | [facility] | [address] | Pain; Hip Pain | | | | [place], [place] | [phone] | | | | | [address] | | | | | | [phone] | | | +--------+---------+ + + + [...] and plan of care. KALYAN COLBY MD [facility] [address] [facility] [place] [phone] aRaul kasper - 8 12:04 PM PDT [...] w ound vac placement were undertaken with lobsterman antibiotics until the infection cleared. She now [...]
--- OUTSIDE RECORDS SUMMARY | ~2020-04-27 | XMS | Encounter Summary ---
Demographics + + + | Address | [address] | | | [place] [address] | + + + | Home Phone [...] Team Providers + +------+ + | Care Superintendent Name | Role | Phone | + [...] as of this encounter Progress Notes Interface, Office Workforce Planner In - 04/28/2005 10:57 PM PDTClinic Date: [...] not need a refill. Lloyd Garcia M.D. Allergy Specialist of Orthopedics and Rehabilitation / [id number] / [id number] / [id number] / [id number] cc: Leonel Floyd M.D. [address] [place], [place] [email or web address] signed by Interface, Office Workforce Planner In at 04/28/2005 10:57 PM PDTdocumented in this encounter Plan of Treatment Not on filedocumented as of this encounter Visit Diagnoses Not on filedocumented in this encounter"
--- OUTSIDE RECORDS SUMMARY | ~2020-04-27 | XMS | Encounter Summary ---
Demographics + + + | Address | [address] | | | [place] [address] | + + + | Home Phone [...] Team Providers + +------+ + | Care Ornamental Brick Installer Name | Role | Phone | [...] | Diseases at [facility] | [address] | | | | | [address] | [address] | | | | | Loop Physician's | [place], [place] | | | | | [place], 3rd floor | [address] | | | | | [place], [place] | [phone] | | | | | [address] | | | | | | [phone] | | | +--------+ + + + [...] CELL | 7.8 | K/cu mm | [facility] | | | COUNT | | | MEDICAL | | | | | | CENTER - | | | | | | [place] | | + +-------+ + + + | RED CELL | 4.86 | M/cu mm | [facility] | | | COUNT | | | MEDICAL | | | | | | CENTER - | | | | | | [place] | | + +-------+ + + + | HEMOGLOBIN | 14.1 | 12.1999 - 15 | [facility] | | | | | g/dL | MEDICAL | | | | | | CENTER - | | | | | | [place] | | + +-------+ + + + | HEMATOCRIT | 41.2 | % | [facility] | | | | | | MEDICAL | | | | | | CENTER - | | | | | | [place] | | + +-------+ + + + | MCV | 85 | fL | [facility] | | | | | | MEDICAL | | | | | | CENTER - | | | | | | [place] | | + +-------+ + + + | MCH | 29 | pg | [facility] | | | | | | MEDICAL | | | | | | CENTER - | | | | | | [place] | | + +-------+ + + + | MCHC | 34.2 | g/dL | [facility] | | | | | | MEDICAL | | | | | | CENTER - | | | | | | [place] | | + +-------+ + + + | PLATELET | 367 | K/cu mm | [facility] | | | COUNT | | | MEDICAL | | | | | | CENTER - | | | | | | [place] | | + +-------+ + + + | NEUTROPHIL | 59.2 | % | [facility] | | | % | | | MEDICAL | | | | | | CENTER - | | | | | | [place] | | + +-------+ + + + | LYMPHOCYTE | 32.5 | % | [facility] | | | % | | | MEDICAL | | | | | | CENTER - | | | | | | [place] | | + +-------+ + + + | MONOCYTE % | 6.1 | % | [facility] | | | | | | MEDICAL | | | | | | CENTER - | | | | | | [place] | | + +-------+ + + + | EOS % | 1.5 | % | [facility] | | | | | | MEDICAL | | | | | | CENTER - | | | | | | [place] | | + +-------+ + + + | BASO % | 0.7 | % | [facility] | | | | | | MEDICAL | | | | | | CENTER - | | | | | | [place] | | + +-------+ + + + | RDW | 14.5 | % | [facility] | | | | | | MEDICAL | | | | | | CENTER - | | | | | | [place] | | + +-------+ + + + | MPV | | fL | [facility] | | | | | | MEDICAL | | | | | | CENTER - | | | | | | [place] | | + +-------+ + + + | NEUTROPHIL | 4.6 | K/cu mm | [facility] | | | # | | | MEDICAL | | | | | | CENTER - | | | | | | [place] | | + +-------+ + + + | LYMPHOCYTE | 2.5 | K/cu mm | [facility] | | | # | | | MEDICAL | | | | | | CENTER - | | | | | | [place] | | + +-------+ + + + | MONOCYTE # | 0.5 | K/cu mm | [facility] | | | | | | MEDICAL | | | | | | CENTER - | | | | | | [place] | | + +-------+ + + + | EOS # | 0.1 | K/cu mm | [facility] | | | | | | MEDICAL | | | | | | CENTER - | | | | | | [place] | | + +-------+ + + + | BASO # | 0.1 | | [facility] | | | | | | MEDICAL | | | | | | CENTER - | | | | | | [place] | | + +-------+ + + + | PHOSPHORUS, | 3.9 | mg/dL | [facility] | | | PLASMA | | | [...] | + + + + + | [facility] | [address] | [place] [address] | | | CENTER - [place] | | | | + + + + + COMPLETE METABOLIC SET (NA,K,CL,CO2,BUN,CREAT,GLUC,CA,AST,ALT,BILI TOTAL,ALK PHOS,ALB,PROT TOTAL) (03/01/2011 9:55 AM PDT) + +-------+ + + + | Component | Value | Ref Range | Performed | Pathologist | | | | | At | Signature | + +-------+ + + + | GLUCOSE, | 106 | 65 - 110 mg/dL | [facility] | | | PLASMA | | | MEDICAL | | | (LAB) | | | CENTER - | | | | | | [place] | | + +-------+ + + + | BUN, PLASMA | 10 | mg/dL | [facility] | | | (LAB) | | | MEDICAL | | | | | | CENTER - | | | | | | [place] | | + +-------+ + + + | CREATININE | 0.7 | mg/dL | [facility] | | | PLASMA | | | MEDICAL | | | (LAB) | | | CENTER - | | | | | | [place] | | + +-------+ + + + | TOTAL | 7.4 | g/dL | [facility] | | | PROTEIN, | | | MEDICAL | | | PLASMA | | | CENTER - | | | (LAB) | | | [place] | | + +-------+ + + + | ALBUMIN, | 3.8 | g/dL | [facility] | | | PLASMA | | | MEDICAL | | | (LAB) | | | CENTER - | | | | | | [place] | | + +-------+ + + + | CALCIUM, | 9.2 | mg/dL | [facility] | | | PLASMA | | | MEDICAL | | | (LAB) | | | CENTER - | | | | | | [place] | | + +-------+ + + + | BILIRUBIN | 0.3 | Transcutaneous | [facility] | | | TOTAL | | Bilirubinometer | MEDICAL | | | | | | CENTER - | | | | | | [place] | | + +-------+ + + + | ALK PHOS | 72 | U/L | [facility] | | | | | | MEDICAL | | | | | | CENTER - | | | | | | [place] | | + +-------+ + + + | AST(SGOT) | 10 | U/L | [facility] | | | | | | MEDICAL | | | | | | CENTER - | | | | | | [place] | | + +-------+ + + + | SODIUM, | 141 | mmol/L | [facility] | | | PLASMA | | | MEDICAL | | | (LAB) | | | CENTER - | | | | | | [place] | | + +-------+ + + + | POTASSIUM, | 4.4 | mmol/L | [facility] | | | PLASMA | | | MEDICAL | | | (LAB) | | | CENTER - | | | | | | [place] | | + +-------+ + + + | CHLORIDE, | 107 | mmol/L | [facility] | | | PLASMA | | | MEDICAL | | | (LAB) | | | CENTER - | | | | | | [place] | | + +-------+ + + + | TOTAL CO2, | 30 | mmol/L | [facility] | | | PLASMA | | | MEDICAL | | | (LAB) | | | CENTER - | | | | | | [place] | | + +-------+ + + + | ALT (SGPT) | 14 | U/L | [facility] | | | | | | MEDICAL | | | | | | CENTER - | | | | | | [place] | | + +-------+ + + + | SEDIMENTATI | 29 | mm/hr | [facility] | | | ON RATE | | [...] | + + + + + | [facility] | [address] | [place] [address] | | | C[facility] - [place] | | | | + + + + + documented in this encounter Visit Diagnoses Not on filedocumented in this encounter"
--- OUTSIDE RECORDS SUMMARY | ~2020-04-27 | XMS | Encounter Summary ---
Demographics + + + | Address | [address] | | | [place] [address] | + + + | Home Phone [...] Providers + +------+ + | Care Tube Blower Name | Role | Phone | + +------+ + | Travis Mcginnis MD | PCP | | + +------+ + Encounter Details +--------+ + + + + | Date | Type | Department | Care Team | Description | +--------+ + + + + | 02/20/ | Awning Frame Maker | Orthopaedics at | Kalyan Arias MD | Hip replacement | | 2009 | | [facility] [address] | [address] | (Primary Dx) | | | | [address] | [facility] | | | | | Mailcode: PV430 | [facility] [place] | | | | | [facility] | [address] | | | | | [place], [place] | [phone] | | | | | [address] | | | | | | [phone] | | | +--------+ + + + [...] | | | | | near anatomic alignment. | | | | | | The femoral component | | | | | | is well seatedin the | | | | [...] | | | | | pubis are maintained. | | | | | | There isdiffuse | | | | | | [...] 1. | | | | | | Interval breakage of | | | | | | one of 4 cerclage wires | | | | | | attaching a | | | | | | greatertrochanteric | | | | | | plate to the proximal | | | | | | right femur. Stable | | | | | | proximaldisplacement of | | | | | | the greater trochanteric | | | | | | fragment. 2. | | | | | | Unchanged appearance | | | | | | of a noncemented total | | | | | | right hiparthroplasty in | | | | | | normal alignment | | | | | | without hardeare failure | | | | | | orloosening. I have | | | | | | personally viewed this | | | | | | procedure/exam and | | | | | | reviewed this report. | | | | | | Author: HUSSEIN Meek | | | | | | RAMA SUTTONeviewer: | | | | | | MOSHE [...]
--- OUTSIDE RECORDS SUMMARY | ~2020-04-27 | XMS | Encounter Summary ---
Demographics + + + | Address | [address] | | | [place] [address] | + + + | Home Phone [...] Team Providers + +------+ + | Care Orthopedic Dentist Name | Role | Phone | + [...] | | | Surgery [address] | [place], [place] | | | | | [address] | [address] | | | | | Mailcode: [id number] | [phone] | | | | | [facility] | | | | | | [place], [place] | | | | | | [address] | | | | | | [phone] | | | +--------+ + + + [...] + + + | [facility] | [address] | [place] [address] | | | LABORATORY | | | [facility] | [address] | [place] [address] | | | PATHOLOGY | [address] | | | + + + + + | [facility] | [address] | [place] [address] | | | PATHOLOGY | [address] [...] DEPARTMENT OF | [address] | [place] [address] | | | PATHOLOGY | [address] | | | + + + + + | [facility] DEPARTMENT OF | [address] | [place] [address] | | | PATHOLOGY | [address] [...] | + + + + + | [facility] DEPARTMENT OF | [address] | [place] [address] | | | PATHOLOGY | [address] | | | + + + + + | [facility] DEPARTMENT OF | [address] | [place] [address] | | | PATHOLOGY | [address] | | | + + + + + documented in this encounter Visit Diagnoses Not on filedocumented in this encounter
--- OUTSIDE RECORDS SUMMARY | ~2020-04-27 | XMS | Encounter Summary ---
Demographics + + + | Address | [address] | | | [place] [address] | + + + | Home Phone | | + + + | Preferred Language | Unknown | + + + | Marital Status | | + + + | Alevism Affiliation | 1076 | + + + | Race | Unknown | + + + | Ethnic Group | Unknown | + + + Author + + + | Author | [facility] | | | and [place] | + + + | Organization | [facility] | | | [...] Team Providers + +------+ + | Care Cigarette Paper Tester Name | Role | Phone | + +------+ + PCP | Unavailable | + +------+ + Encounter Details +--------+ + + + + | Date | Type | Department | Care Team | Description | +--------+ + + + + | 10/21/ | [facility] | Helio Ahn | | | 2006 | Encounter | MED CTR SLEEP | MD Candie [address] | | | | | CENTER [address] | [address] | | | | | [place] | [place] [address] | | | | | [address] | [phone] | | | | | [phone] | | | +--------+ + + + [...] [place] | | | | | | [address] | | | | | | | | +--------+---------+ + + + documented as of this encounter Visit Diagnoses Not on filedocumented in this encounter"
--- OUTSIDE RECORDS SUMMARY | ~2020-04-27 | XMS | Encounter Summary ---
Demographics + + + | Address | [address] | | | [place] [address] | + + + | Home Phone [...] Providers + +------+ + | Care Hand Funnel Coater Name | Role | Phone | + +------+ + | Travis Mcginnis MD | PCP | | + +------+ + Encounter Details +--------+ + + + + | Date | Type | Department | Care Team | Description | +--------+ + + + + | 02/20/ | Prescription Clerk Lenses | Orthopaedics at | Kalyan Arias MD | Hip replacement | | 2009 | | [address] | [address] | (Primary Dx) | | | | [address] | [facility] | | | | | Mailcode: [id number] | [facility] [place] | | | | | [facility] | [address] | | | | | [place], [place] | [phone] | | | | | [address] | | | | | | [phone] | | | +--------+ + + + [...] | | + +---------+ + + | [facility] DEPARTMENT OF | | | | | RADIOLOGY | | | | + +---------+ + + documented in this encounter Visit Diagnoses + + | Diagnosis | + + | Hip replacement - Primary Hip joint replacement by other means | + + documented in this encounter"
--- OUTSIDE RECORDS SUMMARY | ~2020-04-27 | XMS | Encounter Summary ---
Demographics + + + | Address | [address] | | | [place] [address] | + + + | Home Phone [...] Team Providers + +------+ + | Care Fine Chemicals Operator Name | Role | Phone | + +------+ + PCP | Unavailable | + +------+ + Encounter Details +--------+ + + + + | Date | Type | Department | Care Team | Description | +--------+ + + + + | 02/09/ | Office | [facility] | Note, [...] as of this encounter Progress Notes Interface, First Sampler In - 04/28/2005 8:48 PM PDTClinic Date: 02/10/2004 Orthopedic History: This is a 43-year-old woman most recently seen on January 20, 2004, with a healed right lateral hip wound infection after cheilectomy for right hip arthritis followed by ORIF of loss of reduction of the greater trochanter followed by a postoperative wound infection. Her most recent surgery was closure of her wound, over drained on October 08, 2003. She has done well but presented to the ER in [place] approximately a week and half ago with complaints of nausea and vomiting. The doctors there told her that she either had the flu or an infection in her hip or an infection in her colon, or all three. She denies any fevers, drainage from her wound, or diarrhea. She states that if she had the flu, she would be more disabled. She returns to the clinic today having had difficulty getting in to see her primary care doctor due to a prior missed appointment. She has, however, been able to schedule an appointment with a new doctor next week. Physical Examination General: An obese 220-pound woman standing 5 feet tall with respiratory rate of 15, blood pressure is 138/82, and pain rate of 2/10 in severity. She is afebrile. Her right hip wound is completely healed. There is no fluctuance or erythema. There is no significant tenderness. Diagnostic Data: Ultrasound shows a small amount of subcutaneous fluid with associated inflammation and changes, but no well-defined fluid collection and is felt to be consistent with a resolved abscess. Laboratory Studies: Normal C-reactive protein at 0.5, normal white cell count at 10.6 with a normal differential and a left shift, hematocrit at 38.4, and platelet count is slightly elevated at 415,000. She has 65% PMNs in her differential which is normal. Her erythrocyte sedimentation rate is 12 which is also normal. Assessment: Clinically healed left postoperative hip wound with no evidence of active infection. Disposition: I have reassured her and told her that she should follow up with her primary care doctor in [place] and return to clinic and see me on an as-needed basis only. Lloyd Garcia M.D. Buffet Attendant, Orthopedics and Rehabilitation / [id number] / [id number] / [id number] / [id number] cc: [facility] [address] [place] [address] Rinaldi M.D. [address] [place] [address], [place] [email or web address] signed by Interface, First Sampler In at 04/28/2005 8:4 8 PM PDTdocumented in this encounter Plan of Treatment Not on filedocumented as of this encounter Visit Diagnoses Not on filedocumented in this encounter"
--- OUTSIDE RECORDS SUMMARY | ~2020-04-27 | XMS | Encounter Summary ---
Demographics + + + | Address | [address] | | | [place] [address] | + + + | Home Phone [...] Team Providers + +------+ + | Care Aircraft Cleaner Name | Role | Phone | [...] as of this encounter Progress Notes Interface, Tire Recapper In - 07/10/2006 1:00 AM PDTCLINIC DATE: [...] right total hip replacement. Lloyd Garcia M.D. [employer] Sh[facility] / [id number] / [id number] / [id number] / cc: JILLIAN TODD MD [address] [id number] signed by Interface, Tire Recapper In at 07/10/2006 1:0 0 AM PDTdocumented in this encounter Plan of Treatment Not on filedocumented as of this encounter Visit Diagnoses Not on filedocumented in this encounter"
--- OUTSIDE RECORDS SUMMARY | ~2020-04-27 | XMS | Encounter Summary ---
Demographics + + + | Address | [address] | | | [place] [address] | + + + | Home Phone [...] Team Providers + +------+ + | Care Residential Caregiver Name | Role | Phone | + [...] | | | | | [place] | | | | | | [place] [address] | | | | | | [phone] | | +--------+ + + + + [...] by | | | | | | [facility] | | | | | | [facility] | | | | + + + + + + + + | Specimen | + + | | + + + + + + + | Performing | Address | City/State/Zipcode | Phone Number | | Organization | | | | + + + + + | [facility] | [address] | [place] [address] | | | LABORATORY | | | | + + + + + documented in this encounter Visit Diagnoses Not on filedocumented in this encounter"
--- OUTSIDE RECORDS SUMMARY | ~2020-04-27 | XMS | Encounter Summary ---
Demographics + + + | Address | [address] | | | [place] [address] | + + + | Home Phone [...] + + | Author | [facility] | + + + | Organization | [facility] | + + + | Address | [...] Providers + +------+ + | Care Advertising Operations Manager Name | Role | Phone | + +------+ + PCP | Unavailable | + +------+ + Encounter Details +--------+ + + + + | Date | Type | Department | Care Team | Description | +--------+ + + + + | 11/22/ | Results | Orthopaedics at | Peng Muro | | | 2003 | Only | [facility] [address] MD,PhD [address] | | | | | [address] | [address] | | | | | Mailcode: [id number] | [place], [place] | | | | | [facility] | [address] | | | | | [place], [place] | [phone] | | | | | [address] | | | | | | [phone] | | | +--------+ + + + [...] | | | | | | subchondral sclerosis. | | | | | | Thepatient is status | | | | | | post rim osteophyte | | | | | | resection and | | | | | | trochlearosteotomy. | | | | | | Extensive soft tissue | | | | | | calcification is | | | | | | seenposterolaterally to | | | | | | the greater trochanter. | | | | | | The rim enhancing | | | | | | [...] | | | | | | insagittal dimensions. | | | | | | There is no evidence | | | | | | of progressive | | | | | | [...] | | | | | proximal thigh. 2. 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 3. | | | | | | Right hip degenerative | | | | | [...] | + +---------+ + + | [facility] DEPARTMENT OF | | | | [...] | | | | | CONTRAST | Ragean HERRERA M.D.STUDY: | | | | | [...] | | | | | | subchondral sclerosis. | | | | | | Thepatient is status | | | | | | post rim osteophyte | | | | | | resection and | | | | | | trochlearosteotomy. | | | | | | Extensive soft tissue | | | | | | calcification is | | | | | | seenposterolaterally to | | | | | | the greater trochanter. | | | | | | The rim enhancing | | | | | | [...] | | | | | | insagittal dimensions. | | | | | | There is no evidence | | | | | | of progressive | | | | | | [...] | | | | | proximal thigh. 2. 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 3. | | | | | | Right hip degenerative | | | | | | joint disease with | | | | | | postoperativechanges | | | | | | from an osteophyte | | | | | | resection and trochlear | | | | | | osteotomy. Addendum # 1 | | | | | | by Raegan Queen, | | | | | | M.Gene. on 26-Nov-2003 | | | | | [...] | + +---------+ + + | [facility] DEPARTMENT OF | | | | | RADIOLOGY | | | | + +---------+ + + documented in this encounter Visit Diagnoses Not on filedocumented in this encounter"
--- OUTSIDE RECORDS SUMMARY | ~2020-04-27 | XMS | Encounter Summary ---
Demographics + + + | Address | [address] | | | [place] [address] | + + + | Home Phone [...] Team Providers + +------+ + | Care Rn Lactation Consultant Name | Role | Phone | [...] Pavilion | | | | | | [place], [place] | | | | | | [address] | | | | | | [phone] | | | +--------+ + + + [...]
--- OUTSIDE RECORDS SUMMARY | ~2020-04-27 | XMS | Encounter Summary ---
Demographics + + + | Address | [address] | | | [place] [address] | + + + | Home Phone [...] Team Providers + +------+ + | Care Recyclable Materials Collector Name | Role | Phone | + +------+ + | No Pcp Per Patient | PCP | Unavailable | + +------+ + Encounter Details +--------+ + + + + | Date | Type | Department | Care Team | Description | +--------+ + + + + | 10/13/ | Yellow Pages Space Salesperson | Orthopaedics at | Tesfaye Saenz | Osteoarthritis of | | 2008 | | [address] [address] | [address] | Hip (Primary Dx) | | | | [address] | | | | | | Mailcode: [id number] | | | | | | [facility] | | | | | | [place], [place] | | | | | | [address] | | | | | | [phone] | | | +--------+ + + + [...] DELVALLE | | | | | | LAYROSTATUS PENDING | | | | | | [...] | | + +---------+ + + | [facility] DEPARTMENT OF | | | | [...]
--- OUTSIDE RECORDS SUMMARY | ~2020-04-27 | XMS | Encounter Summary ---
Demographics + + + | Address | [address] | | | [place] [address] | + + + | Home Phone [...] Team Providers + +------+ + | Care Boat Tender Name | Role | Phone | [...] [address] | | | | | | [place], [place] | | | | | | [address] | | | | | | [phone] | | | +--------+---------+ + + + [...] fairly well controlled at this point with [place]. She has been wbat and is overall [...]
--- OUTSIDE RECORDS SUMMARY | ~2020-04-27 | XMS | Encounter Summary ---
Demographics + + + | Address | [address] | | | [place] [address] | + + + | Home Phone [...] Author + + + | Author | [facility] | + + + | Organization | [facility] | + + + [...] Team Providers + +------+ + | Care Qm Nurse Name | Role | Phone | [...] Pavilion | | | | | | [place], [place] | | | | | | [address] | | | | | | [phone] | | | +--------+ + + + [...]
--- OUTSIDE RECORDS SUMMARY | ~2020-04-27 | XMS | Encounter Summary ---
Demographics + + + | Address | [address] | | | [place] [address] | + + + | Home Phone [...] Team Providers + +------+ + | Care Program Trainer Name | Role | Phone | + [...] | | | | | | [place], [facility] Floor | | | | | | [place], [place] | | | | | | [address] | | | | | | [phone] | | | +--------+ + + + [...] X-RAY HIP 2 | Med Rec No: [id number] | | | | | VIEWS | Name: | | | | | RIGHT W/ | SHELBY GALDAMEZ C | | | | | PELVIS 1 | Birthday: 1960 | | | | | VIEW | Sex: F | | | | | | Alias:Patient Location: | | | | | | [id number]: Outpatient | | | | | | [...] # | | | | | | [id number]:PELVIS | | | | | | ONE [...] MOSHE | | | | | | ILONEL | | | | | | MalcomReviewer: [...]
--- OUTSIDE RECORDS SUMMARY | ~2020-04-27 | XMS | Encounter Summary ---
Demographics + + + | Address | [address] | | | [place] [address] | + + + | Home Phone | | + + + | Preferred Language | Unknown | + + + | Marital Status | | + + + | Mandaeism Affiliation | 1076 | + + + | Race | Unknown | + + + | Ethnic Group | Unknown | + + + Author + + + | Author | [facility] | | | and [place] | + + + | Organization | [facility] | | | [...] Team Providers + +------+ + | Care Profile Grinder Name | Role | Phone | + +------+ + | Eric Krishna MD | PCP | | + +------+ + Encounter Details +--------+ + + + + | Date | Type | Department | Care Team | Description | +--------+ + + + + | 12/04/ | Hospital | [facility] | Conversion | Decreased range of | | 2018 | Encounter | CENTER OPI XRAY | Transaction, | motion of hip; Hip | | | | [address] | Provider Unknown | pain, chronic, left | | | | [address] [place], [place] | [phone] | | | | | [address] | | | | | | [phone] | Carmine Frost S, | | | | | | [facility] [place] [facility] [address] [place] [address] | | | | | | [address] [place], | | | | | | [place] [address] | | | | | | [phone] | | | | | | | [...] 1 puff every | | 0 | / | | | (VENTOLIN HFA) 90 | [...] 05/23/ | Office | Pain Medicine | [place], | | | 2019 | Visit | | [address] | | | | | | [place] | | | | | | [address] | | | | | | | | +--------+---------+ + + + documented as of this encounter Procedures + +--------+ + + + | Procedure Name | Priori | Date/Time | Associated Diagnosis | Comments | | | ty | | | | + +--------+ + + + | XR HIP BILATERAL 2 | Routin | 12/04/2017 | | Results for this | | VIEWS | e | 2:31 PM | | procedure are in the | | | | PST | | results section. | + +--------+ + + + documented in this encounter Results XR Hip Bilateral 2 Views (12/04/2017 2:31 PM PST) + + | Specimen | + + | | + + + + + | Impressions | Performed At | + + + | 1. Diffuse osteopenia could obscure a nondisplaced fracture. 2. | | | Prior right hip arthroplasty with retained orthopedic hardware. No | | | periprosthetic fractures 3. Dystrophic calcifications superior and | | | lateral to the right hip. 4. Arthritic changes of the left hip with | | | axial narrowing suggesting loss of articular cartilage. No evidence | | | of fractures or dislocation of the left hip. Electronically | | | signed by Dom Christopher MD on 12/04/2017 4:14 PM | | + + + + + + | Narrative | Performed At | + + + | SHELBY GALDAMEZ XR HIPS BILATERAL 12/04/2017 2:31 PM HISTORY: 57 | | | years. Female. Decreased range of motion. Chronic hip pain. | | | TECHNIQUE: XR HIPS BILATERAL. Frontal view of the pelvis and hips and | | | frog-leg lateral view of both left and right hip.. Total of 3 | | | images presented for interpretation. COMPARISON: None at this | | | facility FINDINGS: There is diffuse osteopenia a nondisplaced | | | fracture could be obscured. Bony pelvic ring appears intact. There is | | | extensive dystrophic calcification at the superior lateral margin of | | | the right hip which may be associated with limited range of motion. | | | Patient is had a right hip arthroplasty. The hardware is intact | | | without breakage. No periprosthetic fractures. The left hip | | | demonstrates severe axial narrowing of the joint space femoral head | | | appears to remain rounded and smooth without flattening or | | | fragmentation femoral neck and proximal femoral shaft as visualized | | | show no displaced fractures. | | + + + + + | Procedure Note | + + | Mikey, Rad Conversion - 05/13/2019 2:40 PM PDT SHELBY ZARATE HIPS BILATERAL12/04/2017 | | 2:31 PM HISTORY:57 years. Female. Decreased range of motion. Chronic hip pain. | | TECHNIQUE:XR HIPS BILATERAL. Frontal view of the pelvis and hips and frog-leg lateral | | view of both left and right hip.. Total of 3 images presented for interpretation. | | COMPARISON:None at this facility FINDINGS:There is diffuse osteopenia a nondisplaced | | fracture could be obscured. Bony pelvic ring appears intact. There is extensive | | dystrophic calcification at the superior lateral margin of the right hip which may be | | associated with limited range of motion. Patient is had a right hip arthroplasty. The | | hardware is intact without breakage. No periprosthetic fractures. The left hip | | demonstrates severe axial narrowing of the joint space femoral head appears to remain | | rounded and smooth without flattening or fragmentation femoral neck and proximal femoral | | shaft as visualized show no displaced fractures.IMPRESSION: 1. Diffuse osteopenia | | could obscure a nondisplaced fracture.2. Prior right hip arthroplasty with retained | | orthopedic hardware. No periprosthetic fractures3. Dystrophic calcifications superior | | and lateral to the right hip.4. Arthritic changes of the left hip with axial narrowing | | suggesting loss of articular cartilage. No evidence of fractures or dislocation of the | | left hip. | |IMPRESSION: | |1. 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
--- OUTSIDE RECORDS SUMMARY | ~2020-04-27 | XMS | Encounter Summary ---
Demographics + + + | Address | [address] | | | [place] [address] | + + + | Home Phone [...] Team Providers + +------+ + | Care Operational Communication Chief Name | Role | Phone | + [...] as of this encounter Progress Notes Interface, Records Management Specialist In - 04/28/2005 5:10 PM PDT Referred [...]
--- OUTSIDE RECORDS SUMMARY | ~2020-04-27 | XMS | Encounter Summary ---
Demographics + + + | Address | [address] | | | [place] [address] | + + + | Home Phone [...] Team Providers + +------+ + | Care Axle Inspector Name | Role | Phone | [...] | Transcriptions | + + | Interface, Microstrategy Reports Developer In - 09/19/2005 9:05 PM PST Date: | | 09/29/2003Attending Surgeon: Lloyd Garcia M.D.Sheet Hanger(s): | | Benson Boone M.D.Preoperative Diagnosis:Right greater [...] Boone M.D.Lloyd | | Sierra Garcia.RT / [id number] / [id number] / [id number] / [id number]: 10/21/2003T: 10/22/2003 | |where she had a [...] | | | |RT / HS | |[id number] / [id number] / [id number] / [id number] | | | | | + + documented in this encounter Visit Diagnoses Not on filedocumented in this encounter"
--- OUTSIDE RECORDS SUMMARY | ~2020-04-27 | XMS | Encounter Summary ---
Demographics + + + | Address | [address] | | | [place] [address] | + + + | Home Phone [...] Author + + + | Author | [facility] | + + + | Organization | [facility] | + + + | Address [...] Team Providers + +------+ + | Care Dean Of Student Services Name | Role | Phone | + [...]
--- OUTSIDE RECORDS SUMMARY | ~2020-04-27 | XMS | Encounter Summary ---
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 Her hip arthritis is not amenable to proximal femoral or acetabular osteotomies and only short-term albeit excellent release was obtained after hip steroid injection. She has been able to get by with the help of warm water hydrotherapy and aquatherapy three times per week; however, her insurance is refusing to cover this beyond an additional six weeks. She has difficulty walking greater then two blocks, she uses a cane in her left hand. She has difficulty donning and doffing shoes and socks. She is gaining weight. She has difficulty with sitting as well as with standing because of concomitant low back pain and is now developing some compensatory right knee pain as well. She has seen Dr. Cooper who did not believe that she has any surgically amenable low back condition. MEDICATIONS: Flexeril and Valium. PHYSICAL EXAMINATION: She ambulates with a dvwvrret-jm-czlwmr leg coxalgic gait leaning over the right hip during stand straight. She has 0-110 degrees of hip flexion bilaterally with 30 degrees of external rotation and 20 degrees of internal rotation on the right versus 60 degrees and 30 degrees respectively on the left. She abducts greater than 60 degrees on the left and adducts greater than 30 degrees on the left. On the right she has 30 degrees of abduction and 20 degrees of adduction with pain at the extremes of the right hip motion. She has 5/5 left iliopsoas and quadriceps strength compared 4/5 on the right. X-rays show endstage hip degenerative joint disease. DISPOSITION: Again I have recommended that she receive ongoing warm water hydrotherapy and aquatherapy in an effort to keep this 39-year-old obese female from requiring a total hip replacement any sooner than absolutely necessary. If she ceases to receive this therapy, she is very likely to become almost entirely sedentary in addition to being unable to work. She will be at risk for all of the adverse medical conditions accompanying that such as pressure ulcers, pneumonia, increased weight and decreased cardiopulmonary conditioning. She will return to clinic in two to three months' time with repeat AP and frog lateral of the right hip and AP pelvis x-rays to assess progression of her osteoarthritis and to determine if her symptoms have progressed to the point with total hip arthroplasty is her best option. I have discussed other options such as hip arthrodesis, but I do not think this is a good idea given her already existing low back and lateral knee pain although her contralateral hip is relatively spared. Additionally, because of the low back and knee pain, I think she is poor candidate for hip arthrodesis. I have refused to prescribe narcotic pain medications, muscle relaxers, or benzodiazepines for her, and she will need to obtain these from her primary care physician if he believes that they are appropriate. Lloyd Garcia MD Marine Underwriter Department of Orthopaedics / [id number] / [id number] / [id number] / [id number] C: 01/19/2000 jerman cc: Helio Noland MD [place], [place] [id number] [place] [address] [id number] signed by Interface, Duster Tender In at 08/22/2006 5:13 AM PSTdocumented in this encounter Plan of Treatment Not on filedocumented as of this encounter Visit Diagnoses Not on filedocumented in this encounter"
--- OUTSIDE RECORDS SUMMARY | ~2020-04-27 | XMS | Encounter Summary ---
Demographics + + + | Address | [address] | | | [place] [address] | + + + | Home Phone [...] Team Providers + +------+ + | Care Dedicated Intermodal Truck Driver Name | Role | Phone | + [...] | | | Osteoarthros | | [address] [facility] | | | | | is, | RICH[address] | [place] | | | | | unspecified | [facility] | [address] [place], | | | | | whether | [facility] [address] | [place] | | | | | generalized | [address] | [address] | | | | | or | [place], | Phone: | | | | | localized, | [place] [address] | [phone] | | | | | pelvic | Phone: | Fax: | | | | | region and | [phone] | [phone] | | | | | thigh | Fax: | | | | | | | [phone] | | +--------+--------+ + + + + [...] Terrence | | | | | | [place], [place] | | | | | | [address] | | | | | | [phone] | | | +--------+---------+ + + + [...] with the note. TYRONE COLBY MD [facility] ORTHOPAEDICS & REHABILITATION [address] [place] [address] Mailcode: [id number] [place] [address] esfaye Saenz PA-C - 01/20/2009 [...] pending. Offered to refer her to [facility] pain clinic if she would like [...] DEPARTMENT OF | [address] | [place] [address] | | | PATHOLOGY | [address] | | | + + + + + | [facility] DEPARTMENT OF | [address] | [place] [address] | | | PATHOLOGY | [address] | | | + + + + + SEDIMENTATION RATE (01/20/2009 10:02 AM PDT) + +-------+ + + + | Component | Value | Ref Range | Performed | Pathologist | | | | | At | Signature | + +-------+ + + + | SEDIMENTATI | 16 | <21 mm/hr | [facility] | | | ON RATE | | [...] | + + + + + | [facility] | [address] [facility] | [place] [address] | | | PATHOLOGY | [address] | | | + + + + + | [facility] | [facility] [address] | [place] [address] | | | PATHOLOGY | [address] [...] Change effective 10/26/08 | | | [facility] | | | [place] [address] | | | [place] [address] | | + + + + + + + + | Performing | Address | City/State/Zipcode | Phone Number | | Organization | | | | + + + + + | [facility] | [address] | [place] [address] | | | LABORATORY | | | | + + + + + documented in this encounter Visit Diagnoses + + | Diagnosis | + + | Hip pain Pain in joint, pelvic region and thigh | + + | Hip replacement Hip joint replacement by other means | + + documented in this encounter"
--- OUTSIDE RECORDS SUMMARY | ~2020-04-27 | XMS | Encounter Summary ---
Demographics + + + | Address | [address] | | | [place] [address] | + + + | Home Phone [...] Team Providers + +------+ + | Care Air Conditioning Unit Tester Name | Role | Phone | [...] Pavilion | | | | | | [place], [place] | | | | | | [address] | | | | | | [phone] | | | +--------+ + + + [...] | | | | | HIP, TWO VIEWS: | | | | | | 01/07/2001 Dictated | | | | | | 01/07/2001 COMPARISON: | | | | | | 10/01/2000. | | | | | | DISCUSSION: There is | | | | | | marked medial | | | | | | compartment narrowing of | | | | | | the righthip joint. | | | | | | There is near | | | | | | [id number]-wxzh-[id number] | | | | | | appearance medially | | | | | | andposteriorly. There | | | | | | is subchondral sclerosis | | | | | | and cystic change of | | | | | | thefemoral head. There | | | | | | is an osteophytic ridge | | | | | | of the | | | | | | inferioracetabulum. | | | | | | There is an | | | | | | osteophytic collar of | | | | | | the femoral head.These | | | | | | changes are stable from | | | | | [...] | | + +---------+ + + | [facility] DEPARTMENT OF | | | | | RADIOLOGY | | | | + +---------+ + + documented in this encounter Visit Diagnoses Not on filedocumented in this encounter"
--- OUTSIDE RECORDS SUMMARY | ~2020-04-27 | XMS | Encounter Summary ---
Demographics + + + | Address | [address] | | | [place] [address] | + + + | Home Phone [...] Team Providers + +------+ + | Care Pharmacy District Manager Name | Role | Phone | [...] as of this encounter Progress Notes Interface, Electronic Plotting System Operator In - 04/28/2005 7:30 PM PDTClinic Date: [...] signs of recurrent infection. Lloyd Garcia M.D. Preload Supervisor [facility] / [id number] / [id number] / [id number] / [id number] cc: Ninfa Guillen M.D. [address] [place], [place] [id number] signed by Interface, Electronic Plotting System Operator In at 04/28/2005 7:3 0 PM PDTdocumented in this encounter Plan of Treatment Not on filedocumented as of this encounter Visit Diagnoses Not on filedocumented in this encounter"
--- OUTSIDE RECORDS SUMMARY | ~2020-04-27 | XMS | Encounter Summary ---
Demographics + + + | Address | [address] | | | [place] [address] | + + + | Home Phone [...] Team Providers + +------+ + | Care Care Clinician Name | Role | Phone | [...] imaging | | 2008 | | [facility] [address] | [address] | procedure | | | | [address] | [address] | | | | | Mailcode: [id number] | [place], [place] | | | | | [facility] | [address] | | | | | [place], [place] | [phone] | | | | | [address] | | | | | | [phone] | | | +--------+ + + + [...]
--- OUTSIDE RECORDS SUMMARY | ~2020-04-27 | XMS | Encounter Summary ---
Demographics + + + | Address | [address] | | | [place] [address] | + + + | Home Phone [...] Team Providers + +------+ + | Care Electron Beam Photo Mask Technician Name | Role | Phone | [...] | Transcriptions | + + | Interface, Furnace Erector In - 09/19/2005 9:05 PM PST Date: | | 09/29/2003Attending Surgeon: Lloyd Garcia M.D.Mobile Engineer(s): | | Benson Boone M.D.Preoperative Diagnosis:Right greater [...] Boone M.D.Lloyd | | Sierra Garcia.RT / [id number] / [id number] / [id number] / [id number]: 10/21/2003T: 10/22/2003 | |where she had a [...] | | | |RT / HS | |[id number] / [id number] / [id number] / [id number] | | | | | + + documented in this encounter Visit Diagnoses Not on filedocumented in this encounter"
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
--- OUTSIDE RECORDS SUMMARY | ~2020-04-27 | XMS | Encounter Summary ---
Demographics + + + | Address | [address] | | | [place] [address] | + + + | Home Phone [...] Providers + +------+ + | Care Director Medical Name | Role | Phone | + +------+ + PCP | Unavailable | + +------+ + Encounter Details +--------+ + + + + | Date | Type | Department | Care Team | Description | +--------+ + + + + | 09/25/ | Results | Orthopaedics at | Lloyd Garcia MD | | | 2002 | Only | [facility] [address] | | | | | [address] | | | | | | Mailcode: [id number] | | | | | | [facility] | | | | | | [place], [place] | | | | | | [address] | | | | | | [phone] | | | +--------+ + + + [...] | + +--------+ + + + | PREALBUMIN, SERUM | Routin | 10/09/2003 | | Results for this | | | e | 4:45 AM | | procedure are in the | | | | PST | | results section. | + +--------+ + + + | BASIC METABOLIC SET | Routin | 10/09/2003 | | Results for this | | (NA, K, CL, TCO2, | e | 4:45 AM | | procedure are in the | | BUN, CR, GLU, CA) | | PST | | results section. | + +--------+ + + + | HIV-1,2 AB/HIV-1 P24 | Routin | 10/09/2003 | | Results for this | | AG SCRN | e | 4:45 AM | | procedure are in the | | | | PST | | results section. | + +--------+ + + + | CBC ONLY | Routin | 10/09/2003 | | Results for this | | | e | 4:45 AM | | procedure are in the | | | | PST | | results section. | + +--------+ + + + | HEPATITIS A AB IGM, | Routin | 10/09/2003 | | Results for this | | SERUM | e | 4:45 AM | | procedure are in the | | | | PST | | results section. | + +--------+ + + + | HEPATITIS A AB | Routin | 10/09/2003 | | Results for this | | SCREEN, SERUM | e | 4:45 AM | | procedure are in the | | | | PST | | results section. | + +--------+ + + + | HEPATITIS C VIRUS | Routin | 10/09/2003 | | Results for this | | W/CONFIRMATION | e | 4:45 AM | | procedure are in the | | | | PST | | results section. | + +--------+ + + + | ALBUMIN, PLASMA | Routin | 10/09/2003 | | Results for this | | | e | 4:45 AM | | procedure are in the [...] + | C-REACTIVE PROTEIN | Routin | 10/06/2003 | | Results for this | | | e | 6:45 AM | | procedure are in the | | | | PST | | results section. | + +--------+ + + + | ALT, PLASMA | Routin | 10/01/2003 | | Results for this | | | e | 6:30 PM | | procedure are in the | | | | PST | | results section. | + +--------+ + + + | AST, PLASMA | Routin | 10/01/2003 | | Results for this | | | e | 6:30 PM | | procedure are in the | | | | PST | | results section. | + +--------+ + + + | BLOOD BANK PRODUCT | Routin | 10/01/2003 | | Results for this | | | e | 1:57 PM | | procedure are in the | | | | PST | | results section. | + +--------+ + + + | BLOOD BANK PRODUCT | Routin | 10/01/2003 | | Results for this | | | e | 1:57 PM | | procedure are in the | | | | PST | | results section. | + +--------+ + + + | TYPE AND SCREEN | Routin | 10/01/2003 | | Results for this | | | e | 1:57 PM | | procedure are in the | | | | PST | | results section. | + +--------+ + + + | X-RAY PELVIS 1 VIEW | Urgent | 09/25/2003 | | Results for this | | | | 9:21 PM | | procedure are in the | | | | PST | | results section. | + +--------+ + + + | CULTURE, WOUND BACTI | Routin | 09/25/2003 | | Results for this | | & GS | e | 8:16 PM | | procedure are in the | | | | PST | | results section. | + +--------+ + + + | CULTURE, WOUND BACTI | Routin | 09/25/2003 | | Results for this | | & GS | e | 8:15 PM | | procedure are in the | | | | PST | | results section. | + +--------+ + + + | CULTURE, WOUND BACTI | Routin | 09/25/2003 | | Results for this | | & GS | e | 8:10 PM | | procedure are in the | | | | PST | | results section. | + +--------+ + + + documented in this encounter Results HEPATITIS A AB-IGM (10/09/2003 4:45 AM PST) + + + + + + | Component | Value | Ref Range | Performed | Pathologist | | | | | At | Signature | + + + + + + | HEPATITIS A | NegativeComment: | Negative | | | | AB, IGM | Test performed by [place] | | | | | | [facility] | | | | | | [employer]. | | | | + + + + + + + + | Specimen | + + | | + + + + + + + | Performing | Address | City/State/Zipcode | Phone Number | | Organization | | | | + + + + + | [facility] | [address] | [place] [address] | | | LABORATORY | | | | + + + + + PREALBUMIN (10/09/2003 4:45 AM PST) + + + + + + | Component | Value | Ref Range | Performed | Pathologist | | | | | At | Signature | + + + + + + | PREALBUMIN | 190Comment: No | 180 - 445 mg/L | | | | | Range Available for | | | | | | Children <58 Days. | | | | | | Test performed by | | | | | | [facility] | | | | | | [facility]. | | | | + + + + + + + + | Specimen | + + | | + + + + + + + | Performing | Address | City/State/Zipcode | Phone Number | | Organization | | | | + + + + + | [facility] | [address] | [place] [address] | | | LABORATORY | | | | + + + + + HEPATITIS C AB (10/09/2003 4:45 AM PST) + + + + + + | Component | Value | Ref Range | Performed | Pathologist | | | | | At | Signature | + + + + + + | HEPATITIS C | NegativeComment: | Negative | | | | AB | Test performed by [facility] | | | | | | [facility] | | | | | | [facility]. | | | | + + + + + + + + | Specimen | + + | | + + + + + + + | Performing | Address | City/State/Zipcode | Phone Number | | Organization | | | | + + + + + | [facility] | [address] | [place] [address] | | | LABORATORY | | | | + + + + + HEPATITIS A AB, SCREEN (10/09/2003 4:45 AM PST) + + + + + + | Component | Value | Ref Range | Performed | Pathologist | | | | | At | Signature | + + + + + + | HEPATITIS A | POSITIVEComment: | Negative | | | | AB TOTAL | Test performed by [place] | | | | | | [facility] | | | | | | Laboratories. The | | | | | | test for total antibody | | | | | | to Hepatits A virus | | | | | | tests for both | | | | | | immunoglobulins G and M | | | | | | and is used primarily as | | | | | | an indicatorof | | | | | | past infection and | | | | | | immunity to HAV. When | | | | | | total antibodyresult is | | | | | | positive the | | | | | | Hepatitis A IgM antibody | | | | | | is | | | | | | automaticallyperformed | | | | | | to confirm recent | | | | | | infection. | | | | + + + + + + + + | Specimen | + + | | + + + + + + + | Performing | Address | City/State/Zipcode | Phone Number | | Organization | | | | + + + + + | [facility] | [address] | [place] [address] | | | LABORATORY | | | | + + + + + HIV AB, SCREEN (10/09/2003 4:45 AM PST) + + + + + + | Component | Value | Ref Range | Performed | Pathologist | | | | | At | Signature | + + + + + + | HIV-1/HIV2 | Non-ReactiveComment: | Negative | [facility] | | | AB SCREEN | Reference Range: | | DEPARTMENT | | | | Non-reactive | | OF | | | | | | PATHOLOGY | | + + + + + + | FORM SIGNED | Avalyan | | [facility] | | | BY: | | | DEPARTMENT | | | [...] | + + + + + | [facility] | [address] | [place] [address] | | | PATHOLOGY | [address] | | | + + + + + | [facility] | [address] | [place] [address] | | | PATHOLOGY | [address] | | | + + + + + CBC ONLY WITH PLATELET (10/09/2003 4:45 AM PST) + + + + + + | Component | Value | Ref Range | Performed | Pathologist | | | | | At | Signature | + + + + + + | WHITE CELL | 9.2 | 4.4 - 11.0 K/cu | [facility] | | | COUNT | | mm | DEPARTMENT | | | | | | OF | | | | | | PATHOLOGY | | + + + + + + | RED CELL | 2.99 (L) | 3.65 - 5.10 | [facility] | | | COUNT | | M/cu mm | DEPARTMENT | | | | | | OF | | | | | | PATHOLOGY | | + + + + + + | HEMOGLOBIN | 8.5 (L) | 11.4 - 15.0 | [facility] | | | | | g/dL | DEPARTMENT | | | | | | OF | | | | | | PATHOLOGY | | + + + + + + | HEMATOCRIT | 25.5 (L) | 33.0 - 44.6 % | [facility] | | | | | | DEPARTMENT | | | | | | OF | | | | | | PATHOLOGY | | + + + + + + | MCV | 85.4 | 80.0 - 96.0 fL | [facility] [...] + + + + | MCHC | 33.4 | 33.4 - 35.5 | [facility] | | | | | g/dL | DEPARTMENT | | | | | | OF | | | | | | PATHOLOGY | | + + + + + + | RDW | 15.3 (H) | 11.5 - 15.0 % | [facility] | | | | | | DEPARTMENT | | | | | | OF | | | | | | PATHOLOGY | | + + + + + + | PLATELET | 569 (H) | 150 - 400 K/cu | [...] | + + + + + | [facility] DEPARTMENT OF | [address] | [place] [address] | | | PATHOLOGY | [address] | | | + + + + + | [facility] DEPARTMENT OF | [address] | [place] [address] | | | PATHOLOGY | [address] | | | + + + + + ALBUMIN, PLASMA (10/09/2003 4:45 AM PST) + +---------+ + + + | Component | Value | Ref Range | Performed | Pathologist | | | | | At | Signature | + +---------+ + + + | ALBUMIN, | 2.3 (L) | 3.5 - 4.7 g/dL | [...] | + + + + + | [facility] | [facility] | [place] [address] | | | PATHOLOGY | [address] | | | + + + + + | [facility] | [facility] | [place] [address] | | | PATHOLOGY | [address] | | | + + + + + BASIC METABOLIC SET (10/09/2003 4:45 AM PST) + +---------+ + + + | Component | Value | Ref Range | Performed | Pathologist | | | | | At | Signature | + +---------+ + + + | GLUCOSE, | 107 | 65 - 110 mg/dL | [facility] | | | PLASMA | | | DEPARTMENT | | | (LAB) | | | OF | | | | | | PATHOLOGY | | + +---------+ + + + | BUN, PLASMA | 4 (L) | 6 - 20 mg/dL | [facility] | | | (LAB) | | | DEPARTMENT | | | | | | OF | | | | | | PATHOLOGY | | + +---------+ + + + | CREATININE | 0.7 | 0.6 - 1.1 mg/dL | [facility] | | | PLASMA | | | DEPARTMENT | | | (LAB) | | | OF | | | | | | PATHOLOGY | | + +---------+ + + + | SODIUM, | 137 | 136 - 145 | [facility] | | | PLASMA | | mmol/L | DEPARTMENT | | | (LAB) | | | OF | | | | | | PATHOLOGY | | + +---------+ + + + | POTASSIUM, | 3.6 | 3.5 - 5.1 | [facility] | | | PLASMA | | mmol/L | DEPARTMENT | | | (LAB) | | | OF | | | | | | PATHOLOGY | | + +---------+ + + + | CHLORIDE, | 102 | 98 - 107 mmol/L | [facility] | | | PLASMA | | | DEPARTMENT | | | (LAB) | | | OF | | | | | | PATHOLOGY | | + +---------+ + + + | TOTAL CO2, | 28 | 23 - 29 mmol/L | [facility] [...] DEPARTMENT OF | [address] | [place] [address] | | | PATHOLOGY | [address] | | | + + + + + | [facility] DEPARTMENT OF | [address] | [place] [address] | | | PATHOLOGY | [address] | | | + + + + + CBC ONLY WITH PLATELET (10/06/2003 8:00 AM PST) + + + + + + | Component | Value | Ref Range | Performed | Pathologist | | | | | At | Signature | + + + + + + | WHITE CELL | 10.1 | 4.4 - 11.0 K/cu | [facility] | | | COUNT | | mm | DEPARTMENT | | | | | | OF | | | | | | PATHOLOGY | | + + + + + + | RED CELL | 3.30 (L) | 3.65 - 5.10 | [facility] [...] + + + + | MCV | 85.3 | 80.0 - 96.0 fL | [facility] [...] + + + + | MCHC | 33.5 | 33.4 - 35.5 | [facility] | | | | | g/dL | DEPARTMENT | | | | | | OF | | | | | | PATHOLOGY | | + + + + + + | RDW | 15.0 | 11.5 - 15.0 % | [facility] | | | | | | DEPARTMENT | | | | | | OF | | | | | | PATHOLOGY | | + + + + + + | PLATELET | 686 (H) | 150 - 400 K/cu | [facility] | | | COUNT | | mm | DEPARTMENT | | | | | | OF | | | | | | PATHOLOGY | | + + + + + + | MPV | 5.7 (L) | 7.4 - 10.4 fL | [...] | + + + + + | [facility] DEPARTMENT OF | [address] | [place] [address] | | | PATHOLOGY | [address] | | | + + + + + | [facility] DEPARTMENT OF | [address] | [place] [address] | | | PATHOLOGY | [address] | | | + + + + + SEDIMENTATION RATE (10/06/2003 8:00 AM PST) + +--------+ + + + | Component | Value | Ref Range | Performed | Pathologist | | | | | At | Signature | + +--------+ + + + | SEDIMENTATI | 75 (H) | <21 mm/hr | [facility] | [...] DEPARTMENT OF | [address] | [place] [address] | | | PATHOLOGY | [address] | | | + + + + + | [facility] | [address] | [place] [address] | | | PATHOLOGY | [address] | | | + + + + + C-REACTIVE PROTEIN (10/06/2003 6:45 AM PST) + +---------+ + + + | Component | Value | Ref Range | Performed | Pathologist | | | | | At | Signature | + +---------+ + + + | C-REACTIVE | 1.8 (H) | <0.9 mg/dl | | | | PROTEIN | | | | | + +---------+ + + + + + | Specimen | + + | | + + + + + + + | Performing | Address | City/State/Zipcode | Phone Number | | Organization | | | | + + + + + | [facility] | [address] | [place] [address] | | | LABORATORY | | | | + + + + + ALT (10/01/2003 6:30 PM PST) + +-------+ + + + | Component | Value | Ref Range | Performed | Pathologist | | | | | At | Signature | + +-------+ + + + | ALT (SGPT) | 25 | 13 - 48 U/L | [facility] [...] | + + + + + | [facility] DEPARTMENT OF | [address] | [place] [address] | | | PATHOLOGY | [address] | | | + + + + + | [facility] DEPARTMENT OF | [address] | [place] [address] | | | PATHOLOGY | [address] | | | + + + + + AST (10/01/2003 6:30 PM PST) + +-------+ + + + | Component | Value | Ref Range | Performed | Pathologist | | | | | At | Signature | + +-------+ + + + | AST(SGOT) | 38 | 15 - 41 U/L | [facility] [...] | + + + + + | [facility] DEPARTMENT OF | [address] | [place] [address] | | | PATHOLOGY | [address] | | | + + + + + | [facility] DEPARTMENT OF | [address] | [place] [address] | | | PATHOLOGY | [address] | | | + + + + + BLOOD BANK PRODUCT (10/01/2003 1:57 PM PST) + + + + + + | Component | Value | Ref Range | Performed | Pathologist | | | | | At | Signature | + + + + + + | PRODUCT | PACKED CELLS | | [facility] | | | DESCRIPTION | | | DEPARTMENT | | | | | | OF | | | | | | PATHOLOGY | | + + + + + + | PRODUCT | [id number] | | [facility] | | | UNIT # | | | DEPARTMENT | | | | | | OF | | | | | | PATHOLOGY | | + + + + + + | UNIT ABO | O | | [facility] | | | | [...] + + + | STATUS OF | Transfused | | [facility] | | | [...] | + + + + + | [facility] | [address] [facility] | [place] [address] | | | PATHOLOGY | [address] | | | + + + + + | [facility] | [address] [place] [address] | [place] [address] | | | PATHOLOGY | [address] | | | + + + + + BLOOD BANK PRODUCT (10/01/2003 1:57 PM PST) + + + + + + | Component | Value | Ref Range | Performed | Pathologist | | | | | At | Signature | + + + + + + | PRODUCT | PACKED CELLS | | [facility] | | | DESCRIPTION | | | DEPARTMENT | | | | | | OF | | | | | | PATHOLOGY | | + + + + + + | PRODUCT | [id number] | | [facility] | | | UNIT # | | | DEPARTMENT | | | | | | OF | | | | | | PATHOLOGY | | + + + + + + | UNIT ABO | O | | [facility] | | | | [...] + + + | STATUS OF | Transfused | | [facility] | | | [...] | + + + + + | [facility] DEPARTMENT OF | [address] | [place] [address] | | | PATHOLOGY | [address] | | | + + + + + | [facility] DEPARTMENT OF | [address] | [place] [address] | | | PATHOLOGY | [address] | | | + + + + + TYPE AND SCREEN (10/01/2003 1:57 PM PST) + +-------+ + + + [...] At | + + + | SPEC. CULLEN 10/04/03 @ 0700 | [facility] | | | DEPARTMENT OF | | | PATHOLOGY | + + + + + + + + | Performing | Address | City/State/Zipcode | Phone Number | | Organization | | | | + + + + + | [facility] DEPARTMENT OF | [address] | [place] [address] | | | PATHOLOGY | [address] | | | + + + + + | [facility] | [address] | [place] [address] | | | PATHOLOGY | [address] | | | + + + + + PELVIS 1 VIEW (09/25/2003 9:21 PM PST) + + + + + + | Component | Value | Ref Range | Performed | Pathologist | | | | | At | Signature | + + + + + + | PELVIS 1 | Radiologist 1: | | | | | VIEW | MOSHE FLOWERS, | | | | | | M.DJuan JoseAP PELVIS: | | | | | | 09/25/2003 Dictated | | | | | | 11/05/2003 TECHNIQUE: AP | | | | | | view. COMPARISON: | | | | | | 09/25/03, earlier on | | | | | | the same day. FINDINGS: | | | | | | The study was initially | | | | | | dictated on 12/28/03, | | | | | | but the reportis not | | | | | | available on [employer] and | | | | | | therefore is being | | | | | | redictated. Thescrews | | | | | | and surgical hardware of | | | | | | the greater trochanter | | | | | | have beenremoved. The | | | | | | remaining osseous | | | | | | structures are intact. | | | | | | There ismedial | | | | | | osteoarthritis of the | | | | | | right hip. The left | | | | | | hip joint is normal. | | | | | | IMPRESSION: 1. Status | | | | | | post removal of greater | | | | | | trochanteric osteotomy | | | | | | hardware. 2. Medial | | | | | | osteoarthritis. END | | | | | | OF IMPRESSION: | | | | + + + + + + + + | Specimen | + + | | + + + +---------+ + + | Performing | Address | City/State/Zipcode | Phone Number | | Organization | | | | + +---------+ + + | [facility] DEPARTMENT OF | | | | | RADIOLOGY | | | | + +---------+ + + CULT, WOUND BACTI & GS (09/25/2003 8:16 PM PST) + + + + + + | Component | Value | Ref Range | Performed | Pathologist | | | | | At | Signature | + + + + + + | SOURCE BODY | Left Hip site C | | | | | SITE | | | | | + + + + + + | CULTURE | Wound Culture | | | | | RESULT | | | | | | | Source...............: | | | | | | Left Hip site C RLB | | | | | | Gram Stain...........: | | | | | | FEW PMN's | | | | | | | | | | | | No Squamous | | | | | | epithelial cells | | | | | | | | | | | | Many Gram | | | | | | positive cocci | | | | | | Culture: 4+ | | | | | | Staphylococcus aureus | | | | | | | | | | | | Final | | | | | | ID Refer to | | | | | | culture collected | | | | | | 09/25/03 20:10 for | | | | | | sensitivities. | | | | | | Staphylococcus | | | | | | aureus | | | | | | | | | | | | Prelim ID 1+ | | | | | | Mixed anaerobic gram | | | | | | positive growth | | | | | | Final ID | | | | | | Final Report | | | | + + + + + + + + | Specimen | + + | | + + + + + + + | Performing | Address | City/State/Zipcode | Phone Number | | Organization | | | | + + + + + | [facility] | [address] | [place] [address] | | | LAB-MICRO | | | | + + + + + CULT, WOUND BACTI & GS (09/25/2003 8:15 PM PST) + + + + + + | Component | Value | Ref Range | Performed | Pathologist | | | | | At | Signature | + + + + + + | SOURCE BODY | Left Hip site B (deep) | | | | | SITE | | | | | + + + + + + | CULTURE | Wound Culture | | | | | RESULT | | | | | | | Source...............: | | | | | | Left Hip site B (deep) | | | | | | RLB Gram | | | | | | Stain...........: | | | | | | MODERATE PMN's | | | | | | | | | | | | No Squamous | | | | | | epithelial cells | | | | | | | | | | | | Many Gram | | | | | | positive cocci in | | | | | | clusters Culture: | | | | | | 4+ | | | | | | Staphylococcus aureus | | | | | | | | | | | | Final | | | | | | ID Refer to | | | | | | culture collected | | | | | | 09/25/03 20:10 for | | | | | | sensitivities. | | | | | | Staphylococcus | | | | | | aureus | | | | | | | | | | | | Prelim ID 2+ | | | | | | Mixed anaerobic gram | | | | | | positive growth | | | | | | Final ID | | | | | | Final Report | | | | + + + + + + + + | Specimen | + + | | + + + + + + + | Performing | Address | City/State/Zipcode | Phone Number | | Organization | | | | + + + + + | [facility] | [address] | [place] [address] | | | LAB-MICRO | | | | + + + + + CULT, WOUND BACTI & GS (09/25/2003 8:10 PM PST) + + + + + + | Component | Value | Ref Range | Performed | Pathologist | | | | | At | Signature | + + + + + + | SOURCE BODY | Left Hip site A | | | | | SITE | | | | | + + + + + + | CULTURE | Wound Culture | | | | | RESULT | | | | | | | Source...............: | | | | | | Left Hip site A RLB | | | | | | Gram Stain...........: | | | | | | Rare PMN's | | | | | | | | | | | | No Squamous | | | | | | epithelial cells | | | | | | | | | | | | FEW Gram | | | | | | positive cocci in | | | | | | clusters Culture: | | | | | | 3+ | | | | | | Staphylococcus aureus | | | | | | | | | | | | Final | | | | | | ID | | | | | | Staphylococcus aureus | | | | | | | | | | | | Prelim | | | | | | ID 2+ Mixed | | | | | | anaerobic gram positive | | | | | | growth | | | | | | Final ID | | | | | | S. | | | | | | aureus Cefazolin | | | | | | S Clindamycin | | | | | | S | | | | | | Erythromycin | | | | | | S Oxacillin | | | | | | S Penicillin | | | | | | R | | | | | | Trimeth/Sulfa | | | | | | S Vancomycin | | | | | | S Final Report | | | | + + + + + + + + | Specimen | + + | | + + + + + + + | Performing | Address | City/State/Zipcode | Phone Number | | Organization | | | | + + + + + | [facility] | [address] | [place] [address] | | | LAB-MICRO | | | | + + + + + documented in this encounter Visit Diagnoses Not on filedocumented in this encounter"
--- OUTSIDE RECORDS SUMMARY | ~2020-04-27 | XMS | Encounter Summary ---
Demographics + + + | Address | [address] | | | [place] [address] | + + + | Home Phone [...] Team Providers + +------+ + | Care Tandem Operator Name | Role | Phone | [...]
--- OUTSIDE RECORDS SUMMARY | ~2020-04-27 | XMS | Encounter Summary ---
Demographics + + + | Address | [address] | | | [place] [address] | + + + | Home Phone [...] + +------+ + | Care Director Of Child Welfare Services Name | Role | Phone | [...] | Procedures | [address] | [address] [place], | | | | | CONSULT TO | [place], [place] | [place] | | | | | ORTHOPEDICS | [address] | [address] | | | | | AND | Phone: | Phone: | | | | | REHABILITATI | [phone] | [phone] | | | | | ON | Fax: | Fax: | | | | | | [phone] | [phone] | +--------+--------+ + + + + Encounter Details +--------+---------+ + + + | Date | Type | Department | Care Team | Description | +--------+---------+ + + + | 04/10/ | Office | Orthopaedic Spine | Krishna, Vince, MD | Back pain (Primary | | 2010 | Visit | Center at [facility] [address] | [address] | Dx) | | | | [address] | [address] [place], | | | | | Mailcode: CH8N | [place] [address] | | | | | [facility] | [phone] | | | | | and Healing, | | | | | | Building | | | | | | Floor [place], [place] | | | | | | [address] | | | | | | [phone] | | | +--------+---------+ + + + [...]
--- OUTSIDE RECORDS SUMMARY | ~2020-04-27 | XMS | Encounter Summary ---
Demographics + + + | Address | [address] | | | [place] [address] | + + + | Home Phone [...] Team Providers + +------+ + | Care Analytic Manager Name | Role | Phone | [...] | | | is of hip | [facility] | [address] | | | | | Procedures | Rd | [address] [place], | | | | | CONSULT TO | [place], [place] | [place] [address] | | | | | ORTHOPEDICS | [phone] | | | | | | AND [...] | | | | | [place] | [address] [facility] | | | | | | MEDICAL | [facility] | | | | | | CLINIC [address] | [address] | | | | | | [address] | [place] | | | | | | [place], [place] | [address] | | | | | | [address] | | +--------+--------+ + + + + [...] [facility] | | | | | | [place], [place] | | | | | | [address] | | | | | | [phone] | | | +--------+---------+ + + + [...] 05/23/2004, for hip pain who returns to [facility] after a right hip injection arthrogram on [...] states, that he recieves a letter from [facility] indicating the continued need. She [...]
--- OUTSIDE RECORDS SUMMARY | ~2020-04-27 | XMS | Encounter Summary ---
Demographics + + + | Address | [address] | | | [place] [address] | + + + | Home Phone [...] Team Providers + +------+ + | Care Side Framer Name | Role | Phone | + +------+ + | Karli Hammonds | PCP | | | MD | | | + +------+ + Reason for Visit +--------+ + | Reason | Comments | +--------+ + | Apnea | | +--------+ + Encounter Details +--------+---------+ + + + | Date | Type | Department | Care Team | Description | +--------+---------+ + + + | 04/24/ | Office | [facility] | Ladarius Martínez PA | MAMADOU on CPAP (Primary | | 2012 | Visit | SLEEP DISORDER [address] | [address] | Dx) | | | | [address] [place] | [place], [place] | | | | | [place] [address] | [address] | | | | | [phone] | | | +--------+---------+ + + + [...] + + + | Blood Pressure | 140/78 | 04/24/2013 11:08 AM | | | | | PDT | | + + + + + | Pulse | 102 | 04/24/2013 11:08 AM | | | | | PDT | | + + + + + | Temperature | - | - | | + + + + + | Respiratory Rate | 18 | 04/24/2013 11:08 AM | | | | | PDT | | + + + + + | Oxygen Saturation | - | - | | + + + + + | Inhaled Oxygen | - | - | | | Concentration | | | | + + + + + | Weight | 134.4 kg (296 lb 4.8 | 04/24/2013 11:08 AM | | | | oz) | PDT | | + + + + + | Height | - | - | | + + + + + | Body Mass Index | 50.86 | 03/06/2012 12:00 AM | | | | | PDT | | + + + + + documented in this encounter Progress Notes Ladarius Martínez PA - 04/24/2013 11:06 AM PDT Subjective: Patient ID: Shelby Galdamez is a 53 y.o. female. HPI last office visit was: 03/17/2013 date of polysomnography: 09/18/2006 AHI: 57.1 O2%: 87% with minutes below 88% Machine type: Ravi obtained from: [facility] [place] pressure is: 9 cm ResMed S9: Pressure: 9-16 cm 95%: 13.6 cm Maximum: 14.9 cm CPAP download shows CPAP useage # nights: average usage (all nights): 4:34 average usage (nights used): 5:26 AHI: 2.8 Shelby comes in for CPAP compliance. She says that she sleeps much better when she uses he r CPAP. She likes it and would like to keep the ResMed S9. We again discussed the criteria for compliance that she must meet in order for insurance to cover the S9. Her biggest conc marjorie with this is the fact that she is frequently taking off her mask during the night withou t knowing it and her hose is disconnecting from the mask on many nights. I have discussed the download in detail. This shows that her sleep apnea is well controlle d, with an AHI of 2.8. It also shows that her leaks are mostly controlled. Review of Systems Objective: Physical Exam Assessment: Problem # 1: OBSTRUCTIVE SLEEP APNEA (ICD-327.23) This appears to be controlled with CPAP. She has done pretty well with her CPAP compliance , but is not meeting her insurance criteria of wearing it >4 hours for 70% or more nights du ring at least a thirty day period. She says she is frequently taking off her mask during e night without knowing it. Plan: She is to continue with CPAP indefinitely. She is to work harder at wearing her CPAP 100% of the time she is asleep. If she wakes without her mask, she is to go back to sleep while wearing her CPAP. She would likely benefit from wearing her CPAP while watching television to help desensitize her to her CPAP. She is to go to [facility] [place] to get a fitting for her mask that will allow it to connect to her hose properly or make an adjustmen t to the mask that keep it connected. I will follow up again in 1 month, sooner prn. Fifteen minutes were spent [id number], wi th the majority of time spent in counseling. Ladarius Martínez PA-C cc: Dr. Barry documented in this enco unter Miscellaneous Notes Miscellaneous - FRANNIE COSBY - 04/24/2013 12:00 AM PDT documented in this encounter Plan of Treatment +--------+---------+ + + + | Date | Type | Specialty | Care Team | Description | +--------+---------+ + + + | 05/23/ | Office | Pain Medicine | Xiang Sepulveda, | | | 2019 | Visit | | DO [address] | | | | | | [place] | | | | | | [address] | | | | | | | | +--------+---------+ + + + documented as of this encounter Visit Diagnoses + + | Diagnosis | + + | MAMADOU on CPAP - Primary Obstructive sleep apnea (adult) (pediatric) | + + documented in this encounter"
--- OUTSIDE RECORDS SUMMARY | ~2020-04-27 | XMS | Encounter Summary ---
Demographics + + + | Address | [address] | | | [place] [address] | + + + | Home Phone [...] Team Providers + +------+ + | Care Cosmetic Chemist Name | Role | Phone | + [...] | | | | due to | [place] | | | | | unspecified | [address] | [address] | | | | | device, | Phone: | Phone: | | | | | implant, and | [phone] | [phone] | | | | | graft | Fax: | Fax: | | | | | | [phone] | [phone] | +--------+--------+ + + + + Encounter [...] | | | [address] | [address] | (Primary Dx) | | | | Loop Physician's | [place], [place] | | | | | [place], 3rd floor | [address] | | | | | [place], [place] | [phone] | | | | | [address] | | | | | | [phone] | | | +--------+---------+ + + + [...] CLINIC FOLLOW UP Primary Care Physician: Carlos [address] [address] Ms. Galdamez presents to Infectious Diseases Clinic [...] 18, a nd was therefore admitted to [facility] out of concern for [...] discharged in stable condition on 10/22/2010 to [facility] with OPAT & Orthopedic follow-up planned in 2 weeks ti wy. Interim History obtained 11/17/2010: Ms. Galdamez presents [...] R hip incision has healed very well. [place] were removed locally, and there has been [...] as well as in shoes and socks. Astatula-3 Fatty Acids-Vitamin E (FISH OIL) 1,000 mg [...] She will travel to her PCP in [place] in 1 weeks time for another PICC [...] a nd follow-up planning. Carolina Putnam PA-C [facility] Department of Infectious Disease Outpatient IV Antibiotic Therapy Clinic (OPAT) Pager ID: [phone] Mail Code V484 [place] [address] documented in th is encounter Plan of [...] [facility] | [address] | [place] [address] | | | PATHOLOGY | [address] [...] At | + + + | [facility] ([facility]) | [facility] | | [facility] [address] | REGIONAL | | [place] [address] | LABORATORY | + + + + + + + + | Performing | Address | City/State/Zipcode | Phone Number | | Organization | | | | + + + + + | [facility] | [address] | [place] [address] | | | LABORATORY | | | [...] + + | [facility] DEPARTMENT OF | [address] | [place] [address] | | | PATHOLOGY | [address] [...] | | | DEPARTMENT | | | [place] | | | OF | | | [...] DEPARTMENT OF | [address] | [place] [address] | | | PATHOLOGY | [address] [...] [facility] | [address] | [place] [address] | | | PATHOLOGY | [address] | | | + + + + + documented in this encounter Visit Diagnoses + + | Diagnosis | + + | 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
--- OUTSIDE RECORDS SUMMARY | ~2020-04-27 | XMS | Encounter Summary ---
Demographics + + + | Address | [address] | | | [place] [address] | + + + | Home Phone [...] Team Providers + +------+ + | Care Armed Guard Name | Role | Phone | + [...] | [facility] | MEGAN Reddy [address] | | | | | [address] | [address] | | | | | Loop Physician's | [place], [place] | | | | | [place], 3rd floor | [address] | | | | | [place], [place] | [phone] | | | | | [address] | | | | | | [phone] | | | +--------+ + + + [...] CELL | 8.6 | K/cu mm | [facility] | | | COUNT | | | MEDICAL | | | | | | CENTER - | | | | | | [place] | | + + + + + + | RED CELL | 3.88 | M/cu mm | [facility] | | | COUNT | | | MEDICAL | | | | | | CENTER - | | | | | | [place] | | + + + + + + | HEMOGLOBIN | 11.5 (A) | 12.1999 - 15 | [facility] | | | | | g/dL | MEDICAL | | | | | | CENTER - | | | | | | [place] | | + + + + + + | HEMATOCRIT | 33.7 | % | [facility] | | | | | | MEDICAL | | | | | | CENTER - | | | | | | [place] | | + + + + + + | MCV | 87 | fL | [facility] | | | | | | MEDICAL | | | | | | CENTER - | | | | | | [place] | | + + + + + + | MCH | 29.7 | pg | [facility] | | | | | | MEDICAL | | | | | | CENTER - | | | | | | [place] | | + + + + + + | MCHC | 34.1 | g/dL | [facility] | | | | | | MEDICAL | | | | | | CENTER - | | | | | | [place] | | + + + + + + | PLATELET | 369 | K/cu mm | [facility] | | | COUNT | | | MEDICAL | | | | | | CENTER - | | | | | | [place] | | + + + + + + | NEUTROPHIL | 66.6 | % | [facility] | | | % | | | MEDICAL | | | | | | CENTER - | | | | | | [place] | | + + + + + + | LYMPHOCYTE | 23.2 | % | [facility] | | | % | | | MEDICAL | | | | | | CENTER - | | | | | | [place] | | + + + + + + | MONOCYTE % | 6.6 | % | [facility] | | | | | | MEDICAL | | | | | | CENTER - | | | | | | [place] | | + + + + + + | EOS % | 3.1 | % | [facility] | | | | | | MEDICAL | | | | | | CENTER - | | | | | | [place] | | + + + + + + | BASO % | 0.5 | % | [facility] | | | | | | MEDICAL | | | | | | CENTER - | | | | | | [place] | | + + + + + + | RDW | 16.7 | % | [facility] | | | | | | MEDICAL | | | | | | CENTER - | | | | | | [place] | | + + + + + + | MPV | | fL | [facility] | | | | | | MEDICAL | | | | | | CENTER - | | | | | | [place] | | + + + + + + | NEUTROPHIL | 5.7 | K/cu mm | [facility] | | | # | | | MEDICAL | | | | | | CENTER - | | | | | | [place] | | + + + + + + | LYMPHOCYTE | 2.0 | K/cu mm | [facility] | | | # | | | MEDICAL | | | | | | CENTER - | | | | | | [place] | | + + + + + + | MONOCYTE # | 0.6 | K/cu mm | [facility] | | | | | | MEDICAL | | | | | | CENTER - | | | | | | [place] | | + + + + + + | EOS # | 0.3 | K/cu mm | [facility] | | | | | | MEDICAL | | | | | | CENTER - | | | | | | [place] | | + + + + + + | BASO # | | | [facility] | | | | | | MEDICAL | | | | | | CENTER - | | | | | | [place] | | + + + + + + | SEDIMENTATI | 78 | mm/hr | [facility] | | | ON RATE | | [...] | + + + + + | [facility] | [address] | [place] [address] | | | [facility] | | | | + + + + + COMPLETE METABOLIC SET (NA,K,CL,CO2,BUN,CREAT,GLUC,CA,AST,ALT,BILI TOTAL,ALK PHOS,ALB,PROT TOTAL) (11/16/2010 9:41 AM PST) + +---------+ + + + | Component | Value | Ref Range | Performed | Pathologist | | | | | At | Signature | + +---------+ + + + | GLUCOSE, | 112 (A) | 65 - 110 mg/dL | [facility] | | | PLASMA | | | MEDICAL | | | (LAB) | | | CENTER - | | | | | | [place] | | + +---------+ + + + | BUN, PLASMA | 6 | mg/dL | [facility] | | | (LAB) | | | MEDICAL | | | | | | CENTER - | | | | | | [place] | | + +---------+ + + + | CREATININE | 0.4 | mg/dL | [facility] | | | PLASMA | | | MEDICAL | | | (LAB) | | | CENTER - | | | | | | [place] | | + +---------+ + + + | TOTAL | 7.1 | g/dL | [facility] | | | PROTEIN, | | | MEDICAL | | | PLASMA | | | CENTER - | | | (LAB) | | | [place] | | + +---------+ + + + | ALBUMIN, | 3.3 | g/dL | [facility] | | | PLASMA | | | MEDICAL | | | (LAB) | | | CENTER - | | | | | | [place] | | + +---------+ + + + | CALCIUM, | 8.6 | mg/dL | [facility] | | | PLASMA | | | MEDICAL | | | (LAB) | | | CENTER - | | | | | | [place] | | + +---------+ + + + | BILIRUBIN | 0.9 | Transcutaneous | [facility] | | | TOTAL | | Bilirubinometer | MEDICAL | | | | | | CENTER - | | | | | | [place] | | + +---------+ + + + | ALK PHOS | 60 | U/L | [facility] | | | | | | MEDICAL | | | | | | CENTER - | | | | | | [place] | | + +---------+ + + + | AST(SGOT) | 15 | U/L | [facility] | | | | | | MEDICAL | | | | | | CENTER - | | | | | | [place] | | + +---------+ + + + | SODIUM, | 139 | mmol/L | [facility] | | | PLASMA | | | MEDICAL | | | (LAB) | | | CENTER - | | | | | | [place] | | + +---------+ + + + | POTASSIUM, | 4.1 | mmol/L | [facility] | | | PLASMA | | | MEDICAL | | | (LAB) | | | CENTER - | | | | | | [place] | | + +---------+ + + + | CHLORIDE, | 107 | mmol/L | [facility] | | | PLASMA | | | MEDICAL | | | (LAB) | | | CENTER - | | | | | | [place] | | + +---------+ + + + | TOTAL CO2, | 26 | mmol/L | [facility] | | | PLASMA | | | MEDICAL | | | (LAB) | | | CENTER - | | | | | | [place] | | + +---------+ + + + | ALT (SGPT) | 11 | U/L | [facility] | | | | | | MEDICAL | | | | | | CENTER - | | | | | | [place] | | + +---------+ + + + | ANION GAP | 10 | | [facility] | | | | | | MEDICAL | | | | | | CENTER - | | | | | | [place] | | + +---------+ + + + | OSMOLALITY, | 286 | | [facility] | | | CALCULATED | | | [...] | + + + + + | [facility] | [address] | [place] [address] | | | [facility] | | | | + + + + + documented in this encounter Visit Diagnoses Not on filedocumented in this encounter"
--- OUTSIDE RECORDS SUMMARY | ~2020-04-27 | XMS | Encounter Summary ---
Demographics + + + | Address | [address] | | | [place] [address] | + + + | Home Phone [...] Team Providers + +------+ + | Care Inorganic Chemistry Professor Name | Role | Phone | [...] | [facility] | MEGAN Reddy [address] | | | | | [address] | [address] | | | | | Loop Physician's | [place], [place] | | | | | [address], 3rd floor | [address] | | | | | [place], [place] | [phone] | | | | | [address] | | | | | | [phone] | | | +--------+ + + + [...] CELL | 8.6 | K/cu mm | [facility] | | | COUNT | | | MEDICAL | | | | | | CENTER - | | | | | | [place] | | + + + + + + | RED CELL | 3.88 | M/cu mm | [facility] | | | COUNT | | | MEDICAL | | | | | | CENTER - | | | | | | [place] | | + + + + + + | HEMOGLOBIN | 11.5 (A) | 12.1999 - 15 | [facility] | | | | | g/dL | MEDICAL | | | | | | CENTER - | | | | | | [place] | | + + + + + + | HEMATOCRIT | 33.7 | % | [facility] | | | | | | MEDICAL | | | | | | CENTER - | | | | | | [place] | | + + + + + + | MCV | 87 | fL | [facility] | | | | | | MEDICAL | | | | | | CENTER - | | | | | | [place] | | + + + + + + | MCH | 29.7 | pg | [facility] | | | | | | MEDICAL | | | | | | CENTER - | | | | | | [place] | | + + + + + + | MCHC | 34.1 | g/dL | [facility] | | | | | | MEDICAL | | | | | | CENTER - | | | | | | [place] | | + + + + + + | PLATELET | 369 | K/cu mm | [facility] | | | COUNT | | | MEDICAL | | | | | | CENTER - | | | | | | [place] | | + + + + + + | NEUTROPHIL | 66.6 | % | [facility] | | | % | | | MEDICAL | | | | | | CENTER - | | | | | | [place] | | + + + + + + | LYMPHOCYTE | 23.2 | % | [facility] | | | % | | | MEDICAL | | | | | | CENTER - | | | | | | [place] | | + + + + + + | MONOCYTE % | 6.6 | % | [facility] | | | | | | MEDICAL | | | | | | CENTER - | | | | | | [place] | | + + + + + + | EOS % | 3.1 | % | [facility] | | | | | | MEDICAL | | | | | | CENTER - | | | | | | [place] | | + + + + + + | BASO % | 0.5 | % | [facility] | | | | | | MEDICAL | | | | | | CENTER - | | | | | | [place] | | + + + + + + | RDW | 16.7 | % | [facility] | | | | | | MEDICAL | | | | | | CENTER - | | | | | | [place] | | + + + + + + | MPV | | fL | [facility] | | | | | | MEDICAL | | | | | | CENTER - | | | | | | [place] | | + + + + + + | NEUTROPHIL | 5.7 | K/cu mm | [facility] | | | # | | | MEDICAL | | | | | | CENTER - | | | | | | [place] | | + + + + + + | LYMPHOCYTE | 2.0 | K/cu mm | [facility] | | | # | | | MEDICAL | | | | | | CENTER - | | | | | | [place] | | + + + + + + | MONOCYTE # | 0.6 | K/cu mm | [facility] | | | | | | MEDICAL | | | | | | CENTER - | | | | | | [place] | | + + + + + + | EOS # | 0.3 | K/cu mm | [facility] | | | | | | MEDICAL | | | | | | CENTER - | | | | | | [place] | | + + + + + + | BASO # | | | [facility] | | | | | | MEDICAL | | | | | | CENTER - | | | | | | [place] | | + + + + + + | SEDIMENTATI | 78 | mm/hr | [facility] | | | ON RATE | | [...] | + + + + + | [facility] | [address] | [place] [address] | | | [facility] | | | | + + + + + COMPLETE METABOLIC SET (NA,K,CL,CO2,BUN,CREAT,GLUC,CA,AST,ALT,BILI TOTAL,ALK PHOS,ALB,PROT TOTAL) (11/16/2010 9:41 AM PST) + +---------+ + + + | Component | Value | Ref Range | Performed | Pathologist | | | | | At | Signature | + +---------+ + + + | GLUCOSE, | 112 (A) | 65 - 110 mg/dL | [facility] | | | PLASMA | | | MEDICAL | | | (LAB) | | | CENTER - | | | | | | [place] | | + +---------+ + + + | BUN, PLASMA | 6 | mg/dL | [facility] | | | (LAB) | | | MEDICAL | | | | | | CENTER - | | | | | | [place] | | + +---------+ + + + | CREATININE | 0.4 | mg/dL | [facility] | | | PLASMA | | | MEDICAL | | | (LAB) | | | CENTER - | | | | | | [place] | | + +---------+ + + + | TOTAL | 7.1 | g/dL | [facility] | | | PROTEIN, | | | MEDICAL | | | PLASMA | | | CENTER - | | | (LAB) | | | [place] | | + +---------+ + + + | ALBUMIN, | 3.3 | g/dL | [facility] | | | PLASMA | | | MEDICAL | | | (LAB) | | | CENTER - | | | | | | [place] | | + +---------+ + + + | CALCIUM, | 8.6 | mg/dL | [facility] | | | PLASMA | | | MEDICAL | | | (LAB) | | | CENTER - | | | | | | [place] | | + +---------+ + + + | BILIRUBIN | 0.9 | Transcutaneous | [facility] | | | TOTAL | | Bilirubinometer | MEDICAL | | | | | | CENTER - | | | | | | [place] | | + +---------+ + + + | ALK PHOS | 60 | U/L | [facility] | | | | | | MEDICAL | | | | | | CENTER - | | | | | | [place] | | + +---------+ + + + | AST(SGOT) | 15 | U/L | [facility] | | | | | | MEDICAL | | | | | | CENTER - | | | | | | [place] | | + +---------+ + + + | SODIUM, | 139 | mmol/L | [facility] | | | PLASMA | | | MEDICAL | | | (LAB) | | | CENTER - | | | | | | [place] | | + +---------+ + + + | POTASSIUM, | 4.1 | mmol/L | [facility] | | | PLASMA | | | MEDICAL | | | (LAB) | | | CENTER - | | | | | | [place] | | + +---------+ + + + | CHLORIDE, | 107 | mmol/L | [facility] | | | PLASMA | | | MEDICAL | | | (LAB) | | | CENTER - | | | | | | [place] | | + +---------+ + + + | TOTAL CO2, | 26 | mmol/L | [facility] | | | PLASMA | | | MEDICAL | | | (LAB) | | | CENTER - | | | | | | [place] | | + +---------+ + + + | ALT (SGPT) | 11 | U/L | [facility] | | | | | | MEDICAL | | | | | | CENTER - | | | | | | [place] | | + +---------+ + + + | ANION GAP | 10 | | [facility] | | | | | | MEDICAL | | | | | | CENTER - | | | | | | [place] | | + +---------+ + + + | OSMOLALITY, | 286 | | [facility] | | | CALCULATED | | | [...] | + + + + + | [facility] | [address] | [place] [address] | | | [facility] | | | | + + + + + documented in this encounter Visit Diagnoses Not on filedocumented in this encounter"
--- OUTSIDE RECORDS SUMMARY | ~2020-04-27 | XMS | Encounter Summary ---
Demographics + + + | Address | [address] | | | [place] [address] | + + + | Home Phone [...] Team Providers + +------+ + | Care Welder Setter Resistance Machine Name | Role | Phone | + [...] | | | | Mailcode: [id number] | [place], [place] | | | | | [facility] | [address] | | | | | [place], [place] | [phone] | | | | | [address] | | | | | | [phone] | | | +--------+ + + + [...]
--- OUTSIDE RECORDS SUMMARY | ~2020-04-27 | XMS | Encounter Summary ---
Demographics + + + | Address | [address] | | | [place] [address] | + + + | Home Phone [...] Team Providers + +------+ + | Care Tree Scout Name | Role | Phone | + [...] | [facility] | MEGAN Reddy [address] | | | | | [address] | [address] | | | | | Loop Physician's | [place], [place] | | | | | [address], [address]rd floor | [address] | | | | | [place], [place] | [phone] | | | | | [address] | | | | | | [phone] | | | +--------+ + + + [...]
--- OUTSIDE RECORDS SUMMARY | ~2020-04-27 | XMS | Encounter Summary ---
Demographics + + + | Address | [address] | | | [place] [address] | + + + | Home Phone [...] Providers + +------+ + | Care Public Works Technician Name | Role | Phone | [...] Pavilion | | | | | | [place], [place] | | | | | | [address] | | | | | | [phone] | | | +--------+ + + + [...] | + + + + + | [facility] | [address] | [place] [address] | | | LABORATORY | | | [...] | + + + + + | [facility] DEPARTMENT | [address] [facility] | [place] [address] | | | PATHOLOGY | [address] | | | + + + + + | [facility] DEPARTMENT | [address] [place] [address] | [place] [address] | | | PATHOLOGY | [address] [...] | + + + + + | [facility] DEPARTMENT OF | [address] | [place] [address] | | | PATHOLOGY | [address] | | | + + + + + | [facility] DEPARTMENT OF | [address] | [place] [address] | | | PATHOLOGY | [address] [...] | + + + + + | [facility] | [address] | [place] [address] | | | PATHOLOGY | [address] | | | + + + + + | [facility] | [address] | [place] [address] | | | PATHOLOGY | [address] [...]
--- OUTSIDE RECORDS SUMMARY | ~2020-04-27 | XMS | Encounter Summary ---
Demographics + + + | Address | [address] | | | [place] [address] | + + + | Home Phone [...] Team Providers + +------+ + | Care Studio Musician Name | Role | Phone | + [...] | | | | | | [place], | | | | | | | [place] | | | | | | | [address] | | | | | | | Phone: | | | | | | | [phone] | | | | | | | Fax: | | | | | | | [phone] | +--------+--------+ + + + + Encounter [...] | | arthroplasty) | | | | [place], [place] | | | | | | [address] | | | | | | [phone] | | | +--------+---------+ + + + [...] still well controlled at this point with Gheens. She has been wbat and is overall [...] view Consult to rehabilitation physical therapy outside [facility] documented in this encounter Plan of Treatment [...]
--- OUTSIDE RECORDS SUMMARY | ~2020-04-27 | XMS | Encounter Summary ---
Demographics + + + | Address | [address] | | | [place] [address] | + + + | Home Phone [...] Team Providers + +------+ + | Care Promotions Specialist Name | Role | Phone | + +------+ + | Marta Jenkins DRAWING CHECKER | PCP | | + +------+ + [...] | Jamie Mailcode: [id number] [place], | | | | | [place], [place] | [place] [address] | | | | | [address] | | | | | | [phone] | | | +--------+ + + + [...]
--- OUTSIDE RECORDS SUMMARY | ~2020-04-27 | XMS | Encounter Summary ---
Demographics + + + | Address | [address] | | | [place] [address] | + + + | Home Phone [...] Team Providers + +------+ + | Care Escapement Maker Name | Role | Phone | + +------+ + | Marta Jenkins MANAGER POWER | PCP | | + +------+ + Encounter Details +--------+ + + + + | Date | Type | Department | Care Team | Description | +--------+ + + + + | 06/11/ | Ancillary | Registration [id number] | Lloyd Garcia MD | | | 2005 | Registratio | [facility] | | | | | n | Jamie Mailcode: [id number] | | | | | | [place], [place] | | | | | | [address] | | | | | | [phone] | | | +--------+ + + + [...]
--- OUTSIDE RECORDS SUMMARY | ~2020-04-27 | XMS | Encounter Summary ---
Demographics + + + | Address | [address] | | | [place] [address] | + + + | Home Phone [...] Team Providers + +------+ + | Care Manufacturing Systems Engineer Name | Role | Phone [...] as of this encounter Discharge Summaries Interface, Precision Machine Operator In - 03/06/2006 1:10 AM PDTAdmission Date: [...] time of discharge. She initially had a SCALE ADJUSTER that was weaned off as well as [...]
--- OUTSIDE RECORDS SUMMARY | ~2020-04-27 | XMS | Encounter Summary ---
Demographics + + + | Address | [address] | | | [place] [address] | + + + | Home Phone | | + + + | Preferred Language | Unknown | + + + | Marital Status | | + + + | Voodoo Affiliation | 1076 | + + + | Race | Unknown | + + + | Ethnic Group | Unknown | + + + Author + + + | Author | [facility] | | | and [place] | + + + | Organization | [facility] | | | and [...] Team Providers + +------+ + | Care Casting Machine Adjuster Name | Role | Phone | + [...] Description | +--------+---------+ + + + | 08/02/ | Office | [facility] | Ladarius Martínez PA | MAMADOU on CPAP (Primary | | 2013 | Visit | SLEEP DISORDER [address] | [address] | Dx) | | | | [address] [place] | [place], [place] | | | | | [place] [address] | [address] | | | | | [phone] | | | +--------+---------+ + + + [...] + + + | Blood Pressure | 124/84 | 08/02/2014 10:50 AM | | | | | PST | | + + + + + | Pulse | 102 | 08/02/2014 10:50 AM | | | | | PST | | + + + + + | Temperature | - | - | | + + + + + | Respiratory Rate | 18 | 08/02/2014 10:50 AM | | | | | PST | | + + + + + | Oxygen Saturation | 98% | 08/02/2014 10:50 AM | | | | | PST | | + + + + + | Inhaled Oxygen | - | - | | | Concentration | | | | + + + + + | Weight | 135.2 kg (298 lb 1.6 | 08/02/2014 10:50 AM | | | | oz) | PST | | + + + + + | Height | - | - | | + + + + + | Body Mass Index | 51.17 | 03/06/2012 12:00 AM | | | | | PDT | | + + + + + documented in this encounter Progress Notes Ladarius Martínez PA - 08/02/2014 10:46 AM PST Subjective: Patient ID: Shelby Galdamez is a 54 y.o. female. HPI last office visit was: 04/24/2013 date of polysomnography: 09/18/2006 AHI: 57.1 O2%: 87% Machine type: ResMed S9 obtained from: [facility] [place] Pressure: 9-16 cm 95%: 13.6 cm Maximum: 14.6 cm CPAP download shows CPAP useage # nights: 266/365 % of nights >4 hours: 36% average usage (all nights): 3:12 average usage (nights used): 4:24 AHI: 2.4 Shelby comes in for CPAP compliance. She says that she sleeps much better when she uses he r CPAP. She says she has an irregular sleep schedule and often only sleeps for a few hours at night and sometimes doesn't sleep at all. She says she doesn't sleep during the day, but later said she doesn't intentionally sleep during the day. I have discussed the download in detail. This shows that her sleep apnea is well controlle d, with an AHI of 2.8. It also shows that her leaks are mostly controlled. She says she would like to get her equipment from [facility] in [place] instead of [facility]. Review of Systems Objective: Physical Exam Assessment: Problem # 1: OBSTRUCTIVE SLEEP APNEA (ICD-327.23) This is controlled with CPAP, but she struggles with wearing her CPAP consistently. Plan: She is to continue with CPAP indefinitely. She is to work harder at wearing her CPAP 100% of the time she is asleep. If she wakes without her mask, she is to go back to sleep while wearing her CPAP. I will follow up again in 6 months, sooner prn. Thirty minutes were spent trdt-vs-sohv, wi th the majority of time spent in counseling. Ladarius Martínez PA-C cc: Dr. Barry documented in this enco unter Miscellaneous Notes Miscellaneous - ONBASE SCAN [facility] - 08/02/2014 12:00 AM PST iscellaneous - ONBASE SCAN [facility] - 08/02/2014 12:00 AM PSTEle ctronically signed by Richmond Noble at 08/03/2014 12:40 PM PSTdocumented in this encounter Plan of Treatment +--------+---------+ + + + | Date | Type | Specialty | Care Team | Description | +--------+---------+ + + + | 05/23/ | Office | Pain Medicine | Xiang Sepulveda, | | | 2019 | Visit | | [address] | | | | | | [place] | | | | | | [id number] | | | | | | | | +--------+---------+ + + + documented as of this encounter Visit Diagnoses + + | Diagnosis | + + | MAMADOU on CPAP - Primary Obstructive sleep apnea (adult) (pediatric) | + + documented in this encounter"
--- OUTSIDE RECORDS SUMMARY | ~2020-04-27 | XMS | Encounter Summary ---
Demographics + + + | Address | [address] | | | [place] [address] | + + + | Home Phone [...] Team Providers + +------+ + | Care Unit Control Clerk Name | Role | Phone [...] | Transcriptions | + + | Interface, Certified Massage Therapist In - 09/19/2005 9:05 PM PST Date: | | 10/01/2003Attending Surgeon: Lloyd Garcia M.D.Easter Bunny(s): | | Benson Boone M.D.Preoperative Diagnoses:Right hip [...] cheilectomy on July | | 2002 via [facility]. It was complicated by greater trochanter hardware [...] Boone, | | Haleigh Garcia M.D.RT / [id number] / [id number] / [id number] / [id number]: 10/01/2003T: 10/02/2003 | |2002, was demonstrating that [...] | | | |RT / HS | |[id number] / [id number] / [id number] / [id number] | | | | | + + documented in this encounter Visit Diagnoses Not on filedocumented in this encounter"
--- OUTSIDE RECORDS SUMMARY | ~2020-04-27 | XMS | Encounter Summary ---
Demographics + + + | Address | [address] | | | [place] [address] | + + + | Home Phone [...] Team Providers + +------+ + | Care Efficiency Analyst Name | Role | Phone | + +------+ + PCP | Unavailable | + +------+ + Encounter Details +--------+ + + + + | Date | Type | Department | Care Team | Description | +--------+ + + + + | 09/27/ | Procedure - | | Documentation, | [...] + + | TEACHING PHYSICIAN | | 09/27/2003 | | | + +--------+ + + + documented in this encounter Visit Diagnoses Not on filedocumented in this encounter"
--- OUTSIDE RECORDS SUMMARY | ~2020-04-27 | XMS | Encounter Summary ---
Demographics + + + | Address | [address] | | | [place] [address] | + + + | Home Phone [...] Team Providers + +------+ + | Care Material Planner Name | Role | Phone | + [...] | | Procedures | Rd | [address] [place], | | | | | CONSULT TO | [place], [place] | [place] [address] | | | | | ORTHOPEDICS | [address] | | | | | | AND [...] | | [address] | [address] [place], | | | | | Mailcode: PV430 | [place] [address] | | | | | [facility] | | | | | | [place], [place] | | | | | | [address] | | | | | | [phone] | | | +--------+---------+ + + + [...] as of this encounter Progress Notes Interface, Stitcher Around In - 10/05/2006 2:33 AM PST [id number] CHAD Osei [id number] Clinic Date: 10/02/2006 Clinic: Orthopaedics Shelby Galdamez [...] Acevedo. Gino Baker M.D. KEE / SALEEM [id number] / [id number] / [id number] / [id number] cc: Quintin [place] Electronically signed by Gino [...]
--- OUTSIDE RECORDS SUMMARY | ~2020-04-27 | XMS | Encounter Summary ---
Demographics + + + | Address | [address] | | | [place] [address] | + + + | Home Phone [...] Team Providers + +------+ + | Care Lead Software Test Engineer Name | Role | Phone | [...] floor | | | | | | [place], [place] | | | | | | [address] | | | | | | [phone] | | | +--------+------+ + + + [...] | + + + + + | [facility] DEPARTMENT OF | [facility] | [place] [address] | | | PATHOLOGY | [address] | | | + + + + + | [place] DEPARTMENT OF | [address] [facility] | [place] [address] | | | PATHOLOGY | [address] [...] DEPARTMENT OF | [address] | [place] [address] | | | PATHOLOGY | [address] | | | + + + + + | [facility] DEPARTMENT OF | [address] | [place] [address] | | | PATHOLOGY | [address] [...] | + + + + + | [facility] DEPARTMENT | [address] [facility] | [place] [address] | | | PATHOLOGY | [address] | | | + + + + + | [facility] DEPARTMENT | [address] [facility] | [place] [address] | | | PATHOLOGY | [address] [...] | + + + + + | [facility] DEPARTMENT OF | [address] | [place] [address] | | | PATHOLOGY | [address] | | | + + + + + | [facility] DEPARTMENT OF | [address] | [place] [address] | | | PATHOLOGY | [address] [...] Lab) [facility] | | | [place] [address] | | | [place] [address] | | + + + + + + + + | Performing | Address | City/State/Zipcode | Phone Number | | Organization | | | | + + + + + | [facility] | [address] | [place] [address] | | | LABORATORY | | | | + + + + + documented in this encounter Visit Diagnoses + + | Diagnosis | + + | Hip pain Pain in joint, pelvic region and thigh | + + | Hip replacement Hip joint replacement by other means | + + documented in this encounter"
--- OUTSIDE RECORDS SUMMARY | ~2020-04-27 | XMS | Encounter Summary ---
Demographics + + + | Address | [address] | | | [place] [address] | + + + | Home Phone | | + + + | Preferred Language | Unknown | + + + | Marital Status | | + + + | Yazidism Affiliation | 1076 | + + + | Race | Unknown | + + + | Ethnic Group | Unknown | + + + Author + + + | Author | [facility] | | | and [place] | + + + | Organization | [facility] | | | [...] Team Providers + +------+ + | Care Microfilm Processor Name | Role | Phone | [...] + + | 10/02/ | Telephone | [facility] | Augie Valdivia MD | Appointment | | 2012 | | GASTROENTEROLOGY | [address] [facility] | (procedure scheduled | | | | [address] [facility] | [address] [place], [place] | Oct.24 insurance | | | | [address] [place], [place] | [address] | denies coverage for | | | | [address] | | endoscopy) | | | | [phone] | | | +--------+ + + + [...] [place] | | | | | | [id number] | | | | | | | | +--------+---------+ + + + documented as of this encounter Visit Diagnoses Not on filedocumented in this encounter
--- OUTSIDE RECORDS SUMMARY | ~2020-04-27 | XMS | Encounter Summary ---
Demographics + + + | Address | [address] | | | [place] [address] | + + + | Home Phone | | + + + | Preferred Language | Unknown | + + + | Marital Status | Single | + + + | Adventism Affiliation | PRE | + + + [...] Team Providers + +------+ + | Care Fiberglass Grinder Name | Role | Phone | [...] | | [address] | Roxann Ayala [place], | | | | | Mailcode: [address] | [place] [address] | | | | | [facility] | | | | | | [place] | | | | | | [address] | | | | | | [phone] | | | +--------+ + + + [...]
--- OUTSIDE RECORDS SUMMARY | ~2020-04-27 | XMS | Encounter Summary ---
Demographics + + + | Address | [address] | | | [place] [address] | + + + | Home Phone [...] Providers + +------+ + | Care Film Rental Clerk Name | Role | Phone | [...] as of this encounter Progress Notes Interface, Low Pressure Kettle Operator In - 04/28/2005 6:17 PM PDTClinic Date: [...] see us. She instead went to the [facility] emergency department, where she was seen and [...] a chance to get back home to [place]. We will call her tomorrow and reiterate how important it is that we take care of this fluid collection in her hip and try to get her better. Dori Wong. Lloyd Garcia M.D. Attending Physician /jamil P [id number] signed by Interface, Low Pressure Kettle Operator In at 04/28/2005 6:17 PM PDTdoc umented in this encounter Plan of Treatment Not on filedocumented as of this encounter Visit Diagnoses Not on filedocumented in this encounter"
--- OUTSIDE RECORDS SUMMARY | ~2020-04-27 | XMS | Encounter Summary ---
Demographics + + + | Address | [address] | | | [place] [address] | + + + | Home Phone | | + + + | Preferred Language | Unknown | + + + | Marital Status | | + + + | Gnosticist Affiliation | 1076 | + + + | Race | Unknown | + + + | Ethnic Group | Unknown | + + + Author + + + | Author | [facility] | | | and [place] | + + + | Organization | [facility] | | | and [...] Team Providers + +------+ + | Care Process Design Engineer Name | Role | Phone | [...] + + | 07/29/ | Office | [facility] | Xiang Sepulveda, | ABDOMINAL | | 2019 | Visit | [facility] | DO [address] | PAIN-GENERALIZED | | | | DOLOROLOGY [address] | [facility] | (Primary Dx); Other | | | | [address] | [address] | chronic pain; DDD | | | | [place], [place] | | (degenerative disc | | | | [address] | | disease), lumbar; | | | | [phone] | | Facet arthropathy, | | | [...] general activity) Total score: (Printable questionnaires in Croatian ) Interpretation of Total Score: PEG scores are used to track changes over time. It should de crease after therapy has begun. Last 4 PEG Scores: No flowsheet data found. Opioid Risk Tool (ORT): Total Score Pulse: 96 BP: 184/84 SpO2: 99 % (From Chronic Pain tab; printable questionnaires in Croatian) Interpretation of Total Score: 0 to 3 [...] ; Surg andrés: Rustam Schmid MD; Location: [facility] [place] Review of Systems Objective: Vital [...] reviewed, listed controlled substances are consistent with [facility] prescriptions and patient reported use. [...] imited to physical therapy, massage therapy, acupuncture, anesthesiologist and critical care, along with jabari mmended psychological counseling, either privately, or in group sessions offered by private care individuals, community services, or adventist organizations. Appropriate referrals were made at patient [...] and complications with the passage of time. FPC use is also associated with depressions, and liver and renal failure. Finally, these medicines are associated with both physical and emotional addiction and can be difficult to stop after taking for only a few weeks. This document has been created using [employer] Voice Recognition software and [employer]. The entry has been reviewed for content and accuracy, but there may still exist "sound alike" edge trimmer word errors and/or unintended additions and deletions. [...] | Visit | | DO [address] | | | | | | [place] | | | | | | [id number] | | | | | | | [...]
--- OUTSIDE RECORDS SUMMARY | ~2020-04-27 | XMS | Encounter Summary ---
Demographics + + + | Address | [address] | | | [place] [address] | + + + | Home Phone | | + + + | Preferred Language | Unknown | + + + | Marital Status | | + + + | Caodaism Affiliation | 1076 | + + + [...] Team Providers + +------+ + | Care Burrer Hand Name | Role | Phone | + [...] + + | 07/31/ | Telephone | [facility] | Xiang Sepulveda, | Other (Appointment | | 2019 | | [facility] | DO [address] | note ) | | | | DOLOROLOGY [address] | [place], [place] | | | | | [address] | [address] | | | | | [place], [place] | | | | | | [address] | | | | | | [phone] | | | +--------+ + + + [...] Miscellaneous Notes Telephone Encounter - Melyssa Ott, Child Care Counselor - 07/31/2019 11:07 AM Yuly RHODES called patient and left a voicemail to return my call. elephone Encounter - Mihaela Fulton - 07/31/2019 10:27 AM PDTShelby, is calling regarding Other (Appointment not e ) and would like a call back. Additional Call Details: Requesting note to be faxed to [phone] indicating that arabella ross did attend appointment 07/29/19 so she can get her mileage reimbursed. If this is a symptom based call, was patient offered triage? Not Applicable If this is a symptom based call and you were unable to immediately transfer the call to a yuly liz medical records tech was caller made aware that if at [...] [place] | | | | | | [address] | | | | | | | | +--------+---------+ + + + documented as of this encounter Visit Diagnoses Not on filedocumented in this encounter"
--- OUTSIDE RECORDS SUMMARY | ~2020-04-27 | XMS | Encounter Summary ---
Demographics + + + | Address | [address] | | | [place] [address] | + + + | Home Phone [...] Team Providers + +------+ + | Care Historical Guide Name | Role | Phone | + [...] as of this encounter Progress Notes Interface, Fermenting Cellars Receiver In - 08/22/2006 5:13 AM PSTCLINIC DATE: [...] Valium. PHYSICAL EXAMINATION: She ambulates with a byyddzcn-wh-sttlut leg coxalgic gait leaning over the right [...] that they are appropriate. Lloyd Garcia MD Fuse Cutter Department of Orthopaedics / [id number] / [id number] / [id number] / [id number] C: 01/19/2000 jerman cc: Helio Noland MD [address] [place], [place] [address] [place] [id number] signed by Interface, Fermenting Cellars Receiver In at 08/22/2006 5:13 AM PSTdocumented in this encounter Plan of Treatment Not on filedocumented as of this encounter Visit Diagnoses Not on filedocumented in this encounter"
--- OUTSIDE RECORDS SUMMARY | ~2020-04-27 | XMS | Encounter Summary ---
Demographics + + + | Address | [address] | | | [place] [address] | + + + | Home Phone [...] Team Providers + +------+ + | Care Grocery Team Member Name | Role | Phone | [...] as of this encounter Progress Notes Interface, Picker Box Operator In - 04/28/2005 10:57 PM PDTClinic Date: [...] not need a refill. Lloyd Garcia M.D. Video Conference Specialist of Orthopedics and Rehabilitation / [id number] / [id number] / [id number] / [id number] cc: Leonel Floyd M.D. [address] [place], [place] [id number] signed by Interface, Picker Box Operator In at 04/28/2005 10:57 PM PDTdocumented in this encounter Plan of Treatment Not on filedocumented as of this encounter Visit Diagnoses Not on filedocumented in this encounter"
--- OUTSIDE RECORDS SUMMARY | ~2020-04-27 | XMS | Encounter Summary ---
Demographics + + + | Address | [address] | | | [place] [address] | + + + | Home Phone [...] Team Providers + +------+ + | Care Change Number Operator Name | Role | Phone | [...] | | | | Mailcode: [address] | [place], [place] | | | | | [facility] | [address] | | | | | [place], [place] | [phone] | | | | | [address] | | | | | | [phone] | | | +--------+ + + + [...]
--- OUTSIDE RECORDS SUMMARY | ~2020-04-27 | XMS | Encounter Summary ---
Demographics + + + | Address | [address] | | | [place] [address] | + + + | Home Phone [...] Team Providers + +------+ + | Care Bunghole Borer Name | Role | Phone | + [...] as of this encounter Progress Notes Interface, Stringing Machine Tender In - 07/14/2006 1:10 AM PDTCLINIC DATE: [...] improve her hip pain. Lloyd Garcia M.D. Fitness And Wellness Coordinator, Orthopedics and Rehabilitation / [id number] / [id number] / [id number] / [id number] cc: Helio Xie M.D. [place], [place] [id number] signed by Interface, Stringing Machine Tender In at 07/14/2006 1:1 0 AM PDTdocumented in this encounter Plan of Treatment Not on filedocumented as of this encounter Visit Diagnoses Not on filedocumented in this encounter"
--- OUTSIDE RECORDS SUMMARY | ~2020-04-27 | XMS | Encounter Summary ---
Demographics + + + | Address | [address] | | | [place] [address] | + + + | Home Phone [...] Team Providers + +------+ + | Care Venetian Blind Tape Cutter Name | Role | Phone | + +------+ + PCP | Unavailable | + +------+ + Encounter Details +--------+ + + + + | Date | Type | Department | Care Team | Description | +--------+ + + + + | 06/24/ | Results | | Other, Faculty | | | 2000 | Only | | [phone] | | +--------+ + + + + [...] + + | [facility] DEPARTMENT | | | | | RADIOLOGY | | | | + +---------+ + + documented in this encounter Visit Diagnoses Not on filedocumented in this encounter"
--- OUTSIDE RECORDS SUMMARY | ~2020-04-27 | XMS | Encounter Summary ---
Demographics + + + | Address | [address] | | | [place] [address] | + + + | Home Phone | | + + + | Preferred Language | Unknown | + + + | Marital Status | | + + + | Jain Affiliation | 1076 | + + + | Race | Unknown | + + + | Ethnic Group | Unknown | + + + Author + + + | Author | [facility] | | | and [place] | + + + | Organization | [facility] | | | [...] Team Providers + +------+ + | Care Repair Department Supervisor Name | Role | Phone | [...] + + | 09/24/ | Refill | [facility] | Xiang Sepulveda, | Medication Refill | | 2019 | | [facility] | DO [address] | | | | | D[address]OLOGY [address] | [place], [place] | | | | | [address] | [address] | | | | | [place], [place] | | | | | | [address] | | | | | | [phone] | | | +--------+--------+ + + + [...] Miscellaneous Notes Telephone Encounter - Antonella Sprague Director Data Architecture - 09/24/2019 10:23 AM PSTKevyn e given to Dr. Sepulveda. Electronically signed by Antonella Sprague Director Data Architecture at 10:23 AM PSTdocumented in this encounter Plan of Treatment +--------+---------+ + + + | Date | Type | Specialty | Care Team | Description | +--------+---------+ + + + | 05/23/ | Office | Pain Medicine | Xiang Sepulveda, | | | 2019 | Visit | | DO [address] | | | | | | [place] | | | | | | [id number] | | | | | | | [...]
--- OUTSIDE RECORDS SUMMARY | ~2020-04-27 | XMS | Encounter Summary ---
Demographics + + + | Address | [address] | | | [place] [address] | + + + | Home Phone [...] Team Providers + +------+ + | Care Light Bulb Tester Name | Role | Phone | + +------+ + | Travis Mcginnis MD | PCP | | + +------+ + Encounter Details +--------+ + + + + | Date | Type | Department | Care Team | Description | +--------+ + + + + | 11/09/ | Documentati | Vascular Access at | Lis Banuelos | | | 2010 | on | [facility] [address] | HERMINIO Swain [address] | | | | | [address] | [address] | | | | | [facility] | [address] [place], [place] | | | | | [place], [place] | [address] | | | | | [address] | | | | | | [phone] | | | +--------+ + + + [...]
--- OUTSIDE RECORDS SUMMARY | ~2020-04-27 | XMS | Encounter Summary ---
Demographics + + + | Address | [address] | | | [place] [address] | + + + | Home Phone | | + + + | Preferred Language | Unknown | + + + | Marital Status | | + + + | Rastafari Affiliation | 1076 | + + + | Race | Unknown | + + + | Ethnic Group | Unknown | + + + Author + + + | Author | [facility] | | | and [place] | + + + | Organization | [facility] | | | [...] Team Providers + +------+ + | Care Brim Pouncing Machine Operator Name | Role | Phone [...] + + | 08/11/ | Telephone | [facility] | Augie Valdivia MD | Appointment | | 2011 | | GASTROENTEROLOGY | [address], [place] | (schedule procedure) | | | | [address] | [address] [place] | | | | | [address] [place] | [address] | | | | | [address] | | | | | | [phone] | | | +--------+ + + + [...] back if she wants to schedule. [facility] - Lupe Sinha - 08/11/2012 9:26 AM PSTPatient is calling to schedule another procedure after two failed attempts. Patient's information is up to date in [facility]IS.E lectronically signed by Lupe Sinha at 08/11/2012 [...] [place] | | | | | | [address] | | | | | | | | +--------+---------+ + + + documented as of this encounter Visit Diagnoses Not on filedocumented in this encounter"
--- OUTSIDE RECORDS SUMMARY | ~2020-04-27 | XMS | Encounter Summary ---
Demographics + + + | Address | [address] | | | [place] [address] | + + + | Home Phone [...] Team Providers + +------+ + | Care Maitre D' Name | Role | Phone | + [...] Pavilion | | | | | | [place], [place] | | | | | | [address] | | | | | | [phone] | | | +--------+ + + + [...] + + | Performing | Address | City[facility]State[facility] | Phone Number | | Organization | | | | + +---------+ + + | [facility] DE[facility]MENT [facility] | | | [...] | | + +---------+ + + | [facility] OF | | | | | RADIOLOGY | | | | + +---------+ + + documented in this encounter Visit Diagnoses Not on filedocumented in this encounter"
--- OUTSIDE RECORDS SUMMARY | ~2020-04-27 | XMS | Encounter Summary ---
Demographics + + + | Address | [address] | | | [place] [address] | + + + | Home Phone [...] Team Providers + +------+ + | Care Clothing Manager Name | Role | Phone | [...] as of this encounter Progress Notes Interface, Lead Engineer In - 08/31/2006 1:03 AM PSTCLINIC DATE: [...] more. PHYSICAL EXAMINATION: She ambulates with a yxgafjry-oc-kwwrsq right coxalgic gait leaning over the right [...] her primary care physician. Lloyd Garcia M.D. [facility], Orthopedics and Rehabilitation / [id number] / [id number] / [id number] / [id number] C: 10/23/1999 kavita cc: Helio Noland M.D. [facility] [address] Benson Cooper M.D. [facility] Orthopedics Rehabilitation [address], [address] [place] documented in this encounter Plan of Treatment Not on filedocumented as of this encounter Visit Diagnoses Not on filedocumented in this encounter"
--- OUTSIDE RECORDS SUMMARY | ~2020-04-27 | XMS | Encounter Summary ---
Demographics + + + | Address | [address] | | | [place] [address] | + + + | Home Phone [...] Team Providers + +------+ + | Care Blade Changer Name | Role | Phone | + [...] | | | | due to | [place], [place] | Interior, | | | | | internal | [address] | [place] [address] | | | | | joint | Phone: | Phone: | | | | | prosthesis | [phone] | [phone] | | | | | ([facility]) | Fax: | Fax: | | | | | | [phone] | [phone] | +--------+--------+ + + + + Encounter [...] | | | | Loop Physician's | [place], [place] | internal joint | | | | [place], 3rd floor | [address] | prosthesis (HCC) | | | | [place], [place] | [phone] | (Primary Dx) | | | | [address] | | | | | | [phone] | | | +--------+---------+ + + + [...] DISEASES CLINIC FOLLOW UP Primary Care Physician: [address] [place] [id number] Ms. Galdamez presents to Infectious Diseases Clinic [...] did well with the arthroplasty itself. Ms. Gadlamez then developed acute worsening of R hip pain on 10/10/2010 such that she was unabl e to ambulate. She had no fever or chills, but did have a leukocytosis in the ED up to 19, a nd was therefore admitted to [facility] out of concern for R hip [...] discharged in stable condition on 10/22/2010 to [facility] with OPAT & Orthopedic follow-up planned in 2 weeks ti nv. In OPAT follow-up on 11/09/2010 Ms. Galdamez [...] W-FE,OTHER MIN (CENTRUM ORAL) Take by mouth. [place]-3 Fatty Acids-Vitamin E (FISH OIL) 1,000 mg [...] follow up in Infectious Diseases Clinic in [place]. We are hap py to be consulted again should infectious complications arise. I spent a total of 20 minutes face to face with the patient and over 50% was time spent in counseling in which we discussed infection, antibiotics, duration of therapy, lab results, a nd follow-up planning. Carolina Putnam PA-C [facility] Department of Infectious Disease Outpatient IV Antibiotic Therapy Clinic (OPAT) Pager ID: [phone] [facility]. 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
--- OUTSIDE RECORDS SUMMARY | ~2020-04-27 | XMS | Encounter Summary ---
Demographics + + + | Address | [address] | | | [place] [address] | + + + | Home Phone [...] Team Providers + +------+ + | Care Mortgage Consultant Name | Role | Phone | [...] as of this encounter Progress Notes Interface, Security Tester In - 06/23/2006 1:07 AM PDTCLINIC DATE: [...] Ken Mejia M.D. Lloyd Garcia M.D. / [id number] / [id number] / [id number] / Tdocumented in this encounter Plan of Treatment Not on filedocumented as of this encounter Visit Diagnoses Not on filedocumented in this encounter"
--- OUTSIDE RECORDS SUMMARY | ~2020-04-27 | XMS | Encounter Summary ---
Demographics + + + | Address | [address] | | | [place] [address] | + + + | Home Phone [...] Providers + +------+ + | Care Manager Advertising Name | Role | Phone | + [...] as of this encounter Progress Notes Interface, Woodwind Instrument Repairer In - 11/23/2005 2:04 AM PST [id number] [facility] Date: 11/07/2005 Clinic: Orthopaedics Shelby Galdamez is a 46-year-old woman seen for evaluation of pain in the right hip and back. She provides a history that she was operated on in [address] Garcia at [facility] for osteoarthritis. She apparently had a [...] given a request to take home to [place] to see if she can get into [...] could formulate some plans. Her phone is #[phone]. Gino Baker M.D. KEE / SALE[place] [id number] / [id number] / [id number] / [id number] cc: Quintin Acevedo [facility] [address] [place] [address] Electronically signed by Gino Baker 11-22-2005 02:58:59 PM documented i n this encounter Plan of Treatment Not on filedocumented as of this encounter Visit Diagnoses Not on filedocumented in this encounter"
--- OUTSIDE RECORDS SUMMARY | ~2020-04-27 | XMS | Encounter Summary ---
Demographics + + + | Address | [address] | | | [place] [address] | + + + | Home Phone [...] Team Providers + +------+ + | Care Fatback Trimmer Name | Role | Phone | + [...] as of this encounter Progress Notes Interface, Aircraft Inspector In - 07/14/2006 1:10 AM PDTCLINIC DATE: [...] in the system. Dariana Champion M.A. / [id number] / [id number] / [id number] / Watt Aircraft Inspector In - 07/10/2006 1:00 AM PDTCLINIC DATE: [...] insurance at and spoke with Timbo. This health and safety representative stated that this prescription had been [...] over the phone. Dariana Champion M.A. / [id number] / [id number] / [id number] / Tdocumented in this encounter Plan of Treatment Not on filedocumented as of this encounter Visit Diagnoses Not on filedocumented in this encounter"
--- OUTSIDE RECORDS SUMMARY | ~2020-04-27 | XMS | Encounter Summary ---
Demographics + + + | Address | [address] | | | [place] [address] | + + + | Home Phone [...] + +------+ + | Care Director Of Radiology Name | Role | Phone | + [...] | Transcriptions | + + | Interface, Orange Peel Operator In - 02/27/2006 3:05 AM PDT Date: | | 09/27/2003Attending Surgeon: Lloyd Garcia M.D.House Director(s): | | Benson Boone M.D.Preoperative Diagnosis:Right hip [...] Boone M.D.Lloyd Garcia M.D.RT / | | [id number] / [id number] / [id number] / [id number]: 09/27/2003T: 09/28/2003 | |( ) which was [...] | | | |RT / HS | |[id number] / [id number] / [id number] / [id number] | | | | | + + OPERATION RECORD (09/25/2003) + + | Transcriptions | + + | Interface, Orange Peel Operator In - 02/27/2006 3:05 AM PDT Date: | | 09/25/2003Attending Surgeon: Lloyd Garcia M.D.House Director(s): | | MD Fox Gold, | | [...] | [facility] | | [...] thenbrought back to Operating Room [facility] at [facility] | | [place].General endotracheal anesthesia was administered. Antibiotics werewithheld | [...] | procedure well without apparent complications.Lloyd Garcia M.D.Avionics System Engineer, | | Orthopedics and Rehabilitation / [id number] / [id number] / [id number] / [id number]: 09/25/2003T: | | 09/26/2003 | |plate and [...] |brought back to Operating Room #7 at [facility]. | |General endotracheal anesthesia was administered. Antibiotics [...] | | | |Lloyd Garcia M.D. | |Avionics System Engineer, Orthopedics and Rehabilitation | | | | / | |[id number] / [id number] / [id number] / [id number] | | | | | + + documented in this encounter Visit Diagnoses Not on filedocumented in this encounter"
--- OUTSIDE RECORDS SUMMARY | ~2020-04-27 | XMS | Clinical Summary ---
Demographics + + + | Address | [address] | | | [place] [address] | + + + | Home Phone [...] + + + | Casandra Smith | ECON | [place] | | + + + + + Care Team Providers + +------+ + | Care Nurses Medical Assistants Phlebotomists Name | Role | Phone | + +------+ + | JenkinsMarta jackson HEALTHCARE PROF | PCP | | + +------+ + Source Comments LION is fully live on both [facility] Ambulatory and [facility] InPatient.[facility] Allergies + + + + + + [...] + + + + | Levofloxacin | Pruritus | | 06/04/20 | | | | | [...] contents | | 0 | | | Activ | | 200 [...] mouth | | 0 | | | Activ | | (PRILOSEC) 40 mg | once daily. | | | | | e | | Oral Capsule, | | | | | | | | Delayed | | | | | | | | Release(E.C.) | | | | | | | + + + +---------+------+------+-------+ | MULTIVITS | Take by mouth. | | 0 | | | Activ | | W-FE,OTHER MIN | | | | | | e | | (CENTRUM ORAL) | | | | | | | + + + +---------+------+------+-------+ | CALCIUM | Take by mouth. | | 0 | | | Activ | | CARBONATE/VITAMIN D3 | | | | | | e | | (CALCIUM 600 + D | | | | | | | | ORAL) | | | | | | | + + + +---------+------+------+-------+ | [place]-3 Fatty | Take by mouth. | | 0 | | | Activ | | Acids-Vitamin E | | | | | | e | | (FISH OIL) 1,000 mg | | | | | | | | Oral Capsule | | | | | | | + + + +---------+------+------+-------+ | | Take 1 Tab by mouth | | 0 | | | Activ | | hydrocodone-acetamin [...] mg by mouth | | 0 | 10/0 | | Activ | | (DOC-Q-LACE) 100 mg | as needed. | | | 7/20 | | e | | Oral Capsule | | | | 10 | | | + + + +---------+------+------+-------+ | acetaminophen 500 | Take 500 mg by mouth | | 0 | | | Activ | | mg Oral Tablet | every six hours as | | | | | e | | | needed. | | | | | | + + + +---------+------+------+-------+ | CYCLOBENZAPRINE | Take by mouth. | | 0 | | | Activ | | HCL [...] mouth | 60 Tab | 5 | 02/2 | | Activ | | (CIPRO) 750 mg Oral | every twelve hours. | | | 4/20 | | e | | Tablet | Take until gone. | | | 11 | | | + + + +---------+------+------+-------+ | ibuprofen 800 mg | Take 800 mg by mouth | | 0 | | | Activ | | oral tablet | every six hours as | | | | | e | | | needed. | | | | | | + + + +---------+------+------+-------+ | diclofenac sodium | Take 75 mg by mouth | | 0 | | | Activ | | EC 75 mg oral | two times daily. | | | | | e | | tablet,delayed | | | | | | | | release (DR/EC) | | | | | | | + + + +---------+------+------+-------+ | oxyCODONE | Take by mouth every | | 0 | | | Activ | | (immediate release) | eight hours as | | | | | e | | 5 mg oral tablet | needed for | | | | | | | | breakthrough pain. | | | | | | + + + +---------+------+------+-------+ | cannabidiol (CBD) | Take 1 mL by mouth | | 0 | | | Activ | | extract 100 mg/mL | two times daily. | | | | | e | | oral solution | | | | | | | + + + +---------+------+------+-------+ | lidocaine 5 % | Apply 1 patch to | | 0 | | | Activ | | topical adhesive | skin once daily. | | | | | e | | patch,medicated | Apply patch to most | | | | | | | | painful area; Patch | | | | | | | | may remain in place | | | | | | | | for up to 12 hours | | | | | | | | in any 24-hour | | | | | | | | period. | | | | | | + + + +---------+------+------+-------+ Active Problems + + + | Problem | Noted Date | + + + | Methamphetamine abuse | 07/02/2018 | + + + | DDD (degenerative disc disease), lumbar | 12/04/2017 | + + + | Difficulty walking | 10/09/2017 | + + + | Calculus of right ureter | 11/25/2016 | + + + | Abdominal pain, generalized | 03/06/2012 | + + + | Infection and inflammatory reaction due to internal joint | 11/23/2010 | | prosthesis | | + + + | Leukocytosis | 10/14/2010 | + + + | Hyperglycemia | 10/14/2010 | + + + | Bettye rash of groin | 10/14/2010 | + + + | [...] + + + + | Name | Administration Dates | Next Due | + + + [...] type | + + +------+ + | Multiple Sclerosis | Mother | | | + + +------+ + | Heart Attack | Sister | | | + + +------+ + + +------+ + + | Relation | Name | Status | Comments | + +------+ + + | Father | | | | + +------+ + + | Maternal Aunt | | | | + +------+ + + | Maternal Uncle | | | | + +------+ + + | Mother | | | | + +------+ + + | Sister | | | | + +------+ + + Social History + + + [...] recent travel history available. | + + Last Filed Vital Signs + [...] | + + + + + | Pneumococcal | | | | | vaccination (1 of 1 | 5 | | | | - PPSV23) | | | | + + + + + | Influenza (Flu) | | | | | vaccination (#1) | 9 | | | + + + + + Results Not on filefrom Last 3 Months Insurance + +--------+ +--------+-------+---------+--------+ | Payer | Benefi | Subscriber | Effect | Phone | Address | Type | | | t Plan | ID | preet | | | | | | / | | Dates | | | | | | Group | | | | | | + +--------+ +--------+-------+---------+--------+ | COSTING MANAGER MEDICAID | COSTING MANAGER | xxxxxxxx | 06/01/20 | | | Medica | | | [place] | | 17-Pre | | | id | | | [place] | | sent | | | | + +--------+ +--------+-------+---------+--------+ + +--------+ +--------+ + + | Guarantor Name | Accoun | Relation to | Date | Phone | Billing Address | | | t Type | Patient | of | | | | | | | | | | + +--------+ +--------+ + + | Shelby Galdamez | Person | Self [birth year] | [address] | | | al/Fam | | 1960 | [phone] | [address] [place] | | | gigi | | | 7 (Home) | [address] | + +--------+ +--------+ + + | Shelby Galdamez | Third | Self | [birth year] | | [address] | | | Green Party | | 1960 | [phone] | [address] [place] | | | Liabil | | | 7 (Home) | [address] | | | ity | | | | | + +--------+ +--------+ + + Advance Directives + + + + + | Type | Date Recorded | Patient | Explanation | | | | Tax Preparer | | + + + + + | Advance | | | | | Directives and | | | | | Living Will | | | | + + + + + | Power of | | | | | School Crossing Guard Supervisor | | | | + + + + + + + + + + | Code Status | Date | Date | Comments | | | Activated | Inactivated | | + + + + + | Full Code | 10/14/2010 | 10/23/2010 | | | | 12:31 PM | 4:04 PM | | + + + + + + + + +---+ | | | | | + + + +---+ | Full Code | 10/13/2010 | 10/14/2010 | | | | 12:26 PM | 12:31 PM | | + + + +---+ + + + +---+ | | | | | + + + +---+ | Full Code | 09/06/2008 | 09/09/2008 | | | | 5:03 PM | 7:41 PM | | + + + +---+
--- OUTSIDE RECORDS SUMMARY | ~2020-04-27 | XMS | Encounter Summary ---
Demographics + + + | Address | [address] | | | [place] [address] | + + + | Home Phone [...] Providers + +------+ + | Care Diesel Service Apprentice Name | Role | Phone | [...] [facility] | | | | | | [address] | | | | | | Loop Physician's | | | | | | [place], [address] Floor | | | | | | [place], [place] | | | | | | [address] | | | | | | [phone] | | | +--------+ + + + [...]
--- OUTSIDE RECORDS SUMMARY | ~2020-04-27 | XMS | Encounter Summary ---
Demographics + + + | Address | [address] | | | [place] [address] | + + + | Home Phone [...] Team Providers + +------+ + | Care Transport Analyst Name | Role | Phone | [...] as of this encounter Progress Notes Interface, Fashion Intern In - 07/22/2006 3:18 AM PDTCLINIC DATE: [...] that. Jason Castano M.A. TAYE / [place] [id number] / [id number] / [id number] / Tdocumented in this encounter Plan of Treatment Not on filedocumented as of this encounter Visit Diagnoses Not on filedocumented in this encounter"
--- OUTSIDE RECORDS SUMMARY | ~2020-04-27 | XMS | Encounter Summary ---
Demographics + + + | Address | [address] | | | [place] [address] | + + + | Home Phone [...] Team Providers + +------+ + | Care Immunopathologist Name | Role | Phone | + +------+ + | Marta Jenkins STONE SAWYER | PCP | | + +------+ + [...] | obesity | [address] | [facility] | | | | | ([facility]) | [facility] | for Health | | | | | Procedures | Rd | and Healing, | | | | | PHYSICAL | [place], [place] | [address], | | | | | THERAPY | [address] | 1st Floor | | | | | REFERRAL | Phone: | [place], [place] | | | | | | [phone] | [address] | | | | | | Fax: | Phone: | | | | | | [phone] | [phone] | | | | | | | Fax: | | | | | | | [phone] | +--------+--------+ + + + + Encounter Details +--------+ + + + + | Date | Type | Department | Care Team | Description | +--------+ + + + + | 11/19/ | Gun Synchronizer | Digestive Health | Wanda López ACNP | Morbid obesity (HCC) | | 2019 | | Center at [facility] [address] | [address] | (Primary Dx) | | | | [facility] | [address] [place], | | | | | for Health and | [place] [address] | | | | | [address], [address] | [phone] | | | | | [place], [place] | | | | | | [address] | | | | | | | [...]
--- OUTSIDE RECORDS SUMMARY | ~2020-04-27 | XMS | Encounter Summary ---
Demographics + + + | Address | [address] | | | [place] [address] | + + + | Home Phone [...] Team Providers + +------+ + | Care Tip Tester Name | Role | Phone | [...] | | | | Mailcode: PV430 | [place], [place] | | | | | [facility] | [address] | | | | | [facility] [place] | [phone] | | | | | [address] | | | | | | [phone] | | | +--------+ + + + [...]
--- OUTSIDE RECORDS SUMMARY | ~2020-04-27 | XMS | Encounter Summary ---
Demographics + + + | Address | [address] | | | [place] [address] | + + + | Home Phone [...] Team Providers + +------+ + | Care Vacuum Forming Machine Operator Name | Role | Phone [...] | | + +---------+ + + | [facility] DEPARTMENT OF | | | | | RADIOLOGY | | | | + +---------+ + + documented in this encounter Visit Diagnoses Not on filedocumented in this encounter"
--- OUTSIDE RECORDS SUMMARY | ~2020-04-27 | XMS | Encounter Summary ---
Demographics + + + | Address | [address] | | | [place] [address] | + + + | Home Phone [...] Team Providers + +------+ + | Care Wallpaper Printer Name | Role | Phone | + +------+ + PCP | Unavailable | + +------+ + Encounter Details +--------+ + + + + | Date | Type | Department | Care Team | Description | +--------+ + + + + | 07/27/ | Addiction Treatment Counselor | Orthopaedics at | Tesfaye Saenz | Osteoarthritis of | | 2007 | | [facility] [address] | MEGAN Evangelista | Hip; Hip Pain | | | | [address] | | | | | | Mailcode: PV430 | | | | | | [facility] | | | | | | [place], [place] | | | | | | [address] | | | | | | [phone] | | | +--------+ + + + [...] | | + +---------+ + + | [facility] DEPARTMENT OF | | | [...]
--- OUTSIDE RECORDS SUMMARY | ~2020-04-27 | XMS | Encounter Summary ---
Demographics + + + | Address | [address] | | | [place] [address] | + + + | Home Phone [...] Providers + +------+ + | Care Senior Net Software Developer Name | Role | Phone | [...] as of this encounter Progress Notes Interface, Service Station Helper In - 08/03/2006 5:18 AM PSTCLINIC DATE: [...] hip at that time. Lloyd Garcia M.D. Fraud Analyst of Orthopedics and Rehabilitation / [id number] / [id number] / [id number] / [id number] cc: Helio Noland M.D. P.OJuan Jose [place] [facility] [address] [place], [place] [email or web address] signed by Interface, Service Station Helper In at 08/03/2006 5: 18 AM PSTdocumented in this encounter Plan of Treatment Not on filedocumented as of this encounter Visit Diagnoses Not on filedocumented in this encounter"
--- OUTSIDE RECORDS SUMMARY | ~2020-04-27 | XMS | Encounter Summary ---
Demographics + + + | Address | [address] | | | [place] [address] | + + + | Home Phone [...] Team Providers + +------+ + | Care Dike Supervisor Name | Role | Phone | [...] of this encounter Progress Notes Interface, Lead Slot Technician In - 06/23/2006 1:07 AM PDTCLINIC DATE: [...] Ken Mejia M.D. Lloyd Garcia M.D. / [id number] / [id number] / [id number] / Tdocumented in this encounter Plan of Treatment Not on filedocumented as of this encounter Visit Diagnoses Not on filedocumented in this encounter"
--- OUTSIDE RECORDS SUMMARY | ~2020-04-27 | XMS | Encounter Summary ---
Demographics + + + | Address | [address] | | | [place] [address] | + + + | Home Phone [...] Team Providers + +------+ + | Care Assignment Desk Assistant Name | Role | Phone | [...] as of this encounter Progress Notes Interface, Engraver Signature In - 08/03/2006 5:18 AM PSTCLINIC DATE: [...] hip at that time. Lloyd Garcia M.D. Cinder Snapper of Orthopedics and Rehabilitation / [id number] / [id number] / [id number] / [id number] cc: Helio Noland M.D. P.OJuan [facility] [place] [facility] [address] [place], [place] [email or web address] signed by Interface, Engraver Signature In at 08/03/2006 5: 18 AM PSTdocumented in this encounter Plan of Treatment Not on filedocumented as of this encounter Visit Diagnoses Not on filedocumented in this encounter"
--- OUTSIDE RECORDS SUMMARY | ~2020-04-27 | XMS | Encounter Summary ---
Demographics + + + | Address | [address] | | | [place] [address] | + + + | Home Phone [...] Team Providers + +------+ + | Care Clinical Safety Manager Name | Role | Phone | [...] | | | | | [place] | | | | | | [place] [address] | | | | | | [phone] | | +--------+ + + + + [...] by | | | | | | [facility] | | | | | | [facility]. | | | | + + + + + + + + | Specimen | + + | | + + + + + + + | Performing | Address | City/State/Zipcode | Phone Number | | Organization | | | | + + + + + | [facility] | [address] | [place] [address] | | | LABORATORY | | | | + + + + + documented in this encounter Visit Diagnoses Not on filedocumented in this encounter"
--- OUTSIDE RECORDS SUMMARY | ~2020-04-27 | XMS | Encounter Summary ---
Demographics + + + | Address | [address] | | | [place] [address] | + + + | Home Phone [...] Team Providers + +------+ + | Care Traveling Nurse Name | Role | Phone | [...]
--- OUTSIDE RECORDS SUMMARY | ~2020-04-27 | XMS | Encounter Summary ---
Demographics + + + | Address | [address] | | | [place] [address] | + + + | Home Phone [...] Providers + +------+ + | Care Dye Beck Reel Operator Name | Role | Phone | [...] | | | Osteoarthros | | [address] [facility] | | | | | is, | RICHARD | [address] | | | | | unspecified | [facility] | Rd [place], | | | | | whether | [facility] [address] | [place] | | | | | generalized | [address] | [address] | | | | | or | [place], | Phone: | | | | | localized, | [place] [address] | [phone] | | | | | pelvic | Phone: | Fax: | | | | | region and | [phone] | [phone] | | | | | thigh | Fax: | | | | | | | [phone] | | +--------+--------+ + + + + [...] [address]rence | | | | | | [place], [place] | | | | | | [address] | | | | | | [phone] | | | +--------+---------+ + + + [...] the note. TYRONE COLBY MD [facility] [address] [place] [address] Mailcode: [id number] [place] [address] esfaye Saenz PA-C - 01/20/2009 [...] Offered to refer her to [facility] pain clinic if she would like [...] DEPARTMENT OF | [address] | [place] [address] | | | PATHOLOGY | [address] | | | + + + + + | [facility] DEPARTMENT OF | [address] | [place] [address] | | | PATHOLOGY | [address] | | | + + + + + SEDIMENTATION RATE (01/20/2009 10:02 AM PDT) + +-------+ + + + | Component | Value | Ref Range | Performed | Pathologist | | | | | At | Signature | + +-------+ + + + | SEDIMENTATI | 16 | <21 mm/hr | [facility] | | | ON RATE | [...] + + + + + | [facility] | [address] [facility] | [place] [address] | | | PATHOLOGY | [address] | | | + + + + + | [facility] | [facility] | [place] [address] | | | PATHOLOGY | [address] [...] Change effective 10/26/08 | | | [facility] | | | [place] [address] | | | [place] [address] | | + + + + + + + + | Performing | Address | City/State/Zipcode | Phone Number | | Organization | | | | + + + + + | [facility] | [address] | [place] [address] | | | LABORATORY | | | | + + + + + documented in this encounter Visit Diagnoses + + | Diagnosis | + + | Hip pain Pain in joint, pelvic region and thigh | + + | Hip replacement Hip joint replacement by other means | + + documented in this encounter"
--- OUTSIDE RECORDS SUMMARY | ~2020-04-27 | XMS | Encounter Summary ---
Demographics + + + | Address | [address] | | | [place] [address] | + + + | Home Phone [...] Providers + +------+ + | Care Business Trainer Name | Role | Phone | + +------+ + | Marta Jenkins BUS OPERATOR | PCP | | + +------+ + Encounter Details +--------+ + + + + | Date | Type | Department | Care Team | Description | +--------+ + + + + | 06/11/ | Ancillary | Registration [address] | Lloyd Garcia MD | | | 2005 | Registratio | [address] [facility] | | | | | n | Jamie Mailcode: [id number] | | | | | | [place], [place] | | | | | | [address] | | | | | | [phone] | | | +--------+ + + + [...]
--- OUTSIDE RECORDS SUMMARY | ~2020-04-27 | XMS | Encounter Summary ---
Demographics + + + | Address | [address] | | | [place] [address] | + + + | Home Phone [...] Team Providers + +------+ + | Care Bin Tripper Operator Name | Role | Phone | + +------+ + PCP | Unavailable | + +------+ + Encounter Details +--------+ + + + + | Date | Type | Department | Care Team | Description | +--------+ + + + + | 09/14/ | Results | | Other, Faculty | | | 2002 | Only | | [phone] | | +--------+ + + + + [...] + | Ordered by JEFERSON CRONIN, . [id number] Patient unavailable, | | | specimen not obtained | | + + + + + + + + | Performing | Address | City/State/Zipcode | Phone Number | | Organization | | | | + + + + + | [facility] | [address] | [place] [address] | | | LABORATORY | | | [...] + | Ordered by JEFERSON CRONIN JR. [id number] Patient unavailable, | [facility] | | specimen not obtained | DEPARTMENT OF | | | PATHOLOGY | + + + + + + + + | Performing | Address | City/State/Zipcode | Phone Number | | Organization | | | | + + + + + | [facility] DEPARTMENT | [address] [facility] | [place] [address] | | | PATHOLOGY | [address] | | | + + + + + | [facility] | [address] [facility] | [place] [address] | | | PATHOLOGY | [address] [...] + | Ordered by JEFERSON CRONIN JR. [id number] Staff or dialysis draw | [facility] | | required. | DEPARTMENT OF | | | PATHOLOGY | + + + + + + + + | Performing | Address | City/State/Zipcode | Phone Number | | Organization | | | | + + + + + | [facility] DEPARTMENT OF | [address] | [place] [address] | | | PATHOLOGY | [address] | | | + + + + + | [facility] DEPARTMENT OF | [address] | [place] [address] | | | PATHOLOGY | [address] [...] | + + + + + | [facility] DEPARTMENT OF | [address] | [place] [address] | | | PATHOLOGY | [address] | | | + + + + + | [facility] DEPARTMENT OF | [address] | [place] [address] | | | PATHOLOGY | [address] [...] + + + + | [facility] | [address] | [place] [address] | | | PATHOLOGY | [address] | | | + + + + + | [facility] DEPARTMENT OF | [address] | [place] [address] | | | PATHOLOGY | [address] | | | + + + + + documented in this encounter Visit Diagnoses Not on filedocumented in this encounter"
--- OUTSIDE RECORDS SUMMARY | ~2020-04-27 | XMS | Encounter Summary ---
Demographics + + + | Address | [address] | | | [place] [address] | + + + | Home Phone [...] Team Providers + +------+ + | Care Merchandise Presentation Associate Name | Role | Phone | + +------+ + PCP | Unavailable | + +------+ + Encounter Details +--------+ + + + + | Date | Type | Department | Care Team | Description | +--------+ + + + + | // | Results | | Other, Faculty | | | 2003 | Only | | [phone] | | +--------+ + + + + [...] | + + + + + | [facility] DEPARTMENT OF | [address] | [place] [address] | | | PATHOLOGY | [address] | | | + + + + + | [facility] DEPARTMENT OF | [address] | [place] [address] | | | PATHOLOGY | [address] [...] | + + + + + | [facility] OF | [address] | [place] [address] | | | PATHOLOGY | [address] | | | + + + + + | [facility] OF | [address] | [place] [address] | | | PATHOLOGY | [address] [...] + + + | [facility] | [address] | [place] [address] | | | LABORATORY | | | [...] DEPARTMENT OF | [address] | [place] [address] | | | PATHOLOGY | [address] | | | + + + + + | [facility] DEPARTMENT OF | [address] | [place] [address] | | | PATHOLOGY | [address] [...] | + + + + + | [facility] DEPARTMENT OF | [address] [facility] | [place] [address] | | | PATHOLOGY | [address] | | | + + + + + | [facility] DEPARTMENT OF | [address] | [place] [address] | | | PATHOLOGY | [address] [...] | + + + + + | [facility] DEPARTMENT OF | [facility] | [place] [address] | | | PATHOLOGY | [address] | | | + + + + + | [facility] DEPARTMENT OF | [address] | [place] [address] | | | PATHOLOGY | [address] [...] | + + + + + | [facility] | [address] [facility] | [place] [address] | | | PATHOLOGY | [address] | | | + + + + + | [facility] | [address] [place] [address] | [place] [address] | | | PATHOLOGY | [address] [...] | + + + + + | [facility] | [address] [facility] | [place] [address] | | | PATHOLOGY | [address] | | | + + + + + | [facility] | [facility] | [place] [address] | | | PATHOLOGY | [address] [...] DEPARTMENT OF | [address] | [place] [address] | | | PATHOLOGY | [address] | | | + + + + + | [facility] DEPARTMENT OF | [address] | [place] [address] | | | PATHOLOGY | [address] | | | + + + + + CREATININE, PLASMA (10/04/2003 6:15 AM PST) + +-------+ + + + | Component | Value | Ref Range | Performed | Pathologist | | | | | At | Signature | + +-------+ + + + | CREATININE | 0.8 | 0.6 - 1.1 mg/dL | [facility] | | | PLASMA | | [...] | + + + + + | [facility] DEPARTMENT OF | [address] [facility] | [place] [address] | | | PATHOLOGY | [address] | | | + + + + + | [facility] DEPARTMENT OF | [address] [facility] | [place] [address] | | | PATHOLOGY | [address] [...] DEPARTMENT OF | [address] | [place] [address] | | | PATHOLOGY | [address] | | | + + + + + | [facility] DEPARTMENT | [address] | [place] [address] | | | PATHOLOGY | [address] [...] | + + + + + | [facility] DEPARTMENT OF | [address] | [place] [address] | | | PATHOLOGY | [address] | | | + + + + + | [facility] DEPARTMENT OF | [address] | [place] [address] | | | PATHOLOGY | [address] [...] | + + + + + | [facility] | [address] | [place] [address] | | | PATHOLOGY | [address] | | | + + + + + | [facility] | [address] | [place] [address] | | | PATHOLOGY | [address] | | | + + + + + documented in this encounter Visit Diagnoses Not on filedocumented in this encounter"
--- OUTSIDE RECORDS SUMMARY | ~2020-04-27 | XMS | Encounter Summary ---
Demographics + + + | Address | [address] | | | [place] [address] | + + + | Home Phone [...] Team Providers + +------+ + | Care Caramel Candy Maker Name | Role | Phone | [...] | | [address] | [address] [place], | | | | | Mailcode: [id number] | [place] [address] | | | | | [facility] | | | | | | [place], [place] | | | | | | [address] | | | | | | [phone] | | | +--------+ + + + [...]
--- OUTSIDE RECORDS SUMMARY | ~2020-04-27 | XMS | Encounter Summary ---
Demographics + + + | Address | [address] | | | [place] [address] | + + + | Home Phone [...] Team Providers + +------+ + | Care Ship Wirer Name | Role | Phone | + +------+ + | Yuki Pantoja MD | PCP | | + +------+ + Encounter Details +--------+ + + + + | Date | Type | Department | Care Team | Description | +--------+ + + + + | 06/21/ | Hostel Manager | Orthopaedics at | Kalyan Colby MD | Osteoarthritis of | | 2008 | | [facility] [address] | [address] | Hip (Primary Dx) | | | | [address] | [address] | | | | | Mailcode: [id number] | [place], [place] | | | | | [facility] | [address] | | | | | [place], [place] | [phone] | | | | | [address] | | | | | | [phone] | | | +--------+ + + + [...] X-RAY HIP 2 | Med Rec No: [id number] | | | | | VIEWS | Name: | | | | | RIGHT W/ | [place] | | | | | PELVIS 1 | Birthday: 1960 | | | | | VIEW | Sex: F | | | | | | Alias:Patient Location: | | | | | | [id number]: Outpatient | | | | | | [...] # | | | | | | [id number]:PELVIS | | | | | | ONE [...]
--- OUTSIDE RECORDS SUMMARY | ~2020-04-27 | XMS | Encounter Summary ---
Demographics + + + | Address | [address] | | | [place] [address] | + + + | Home Phone [...] Team Providers + +------+ + | Care Loader Demolder Name | Role | Phone | + [...] [place] | | | | | | [facility] and | | | | | | Counseling [address] | | | | | | [address] [place], | | | | | | [place] [address] | | | | | | [phone] | | | | | | | [...] | | | | | | 09/25/2003 [id number] | | | | | | hours [...] | | + +---------+ + + | [facility] DEPARTMENT OF | | [...] + + + | [facility] | [address] | [place] [address] | | | LABORATORY | | | [...] | + + + + + | [facility] DEPARTMENT | [address] [facility] | [place] [address] | | | PATHOLOGY | [address] | | | + + + + + | [facility] DEPARTMENT OF | [address] [facility] | [place] [address] | | | PATHOLOGY | [address] [...] | + + + + + | [facility] | [address] [facility] | [place] [address] | | | PATHOLOGY | [address] | | | + + + + + | [facility] | [address] [facility] | [place] [address] | | | PATHOLOGY | [address] [...] | + + + + + | [facility] | [address] | [place] [address] | | | PATHOLOGY | [address] | | | + + + + + | [facility] | [address] | [place] [address] | | | PATHOLOGY | [address] | | | + + + + + documented in this encounter Visit Diagnoses Not on filedocumented in this encounter"
--- OUTSIDE RECORDS SUMMARY | ~2020-04-27 | XMS | Encounter Summary ---
Demographics + + + | Address | [address] | | | [place] [address] | + + + | Home Phone [...] + | Casandra Smith | ROBERTO | [place] | | + + + + [...] | Transcriptions | + + | Interface, Environment Artist In - 09/19/2005 9:05 PM PST Date: | | 10/08/2003Attending Surgeon: Marguerite Araujo M.D.Pediatric Physician(s): | | Stas Menjivar M.D.Preoperative Diagnosis(es):Right hip [...] recoveryroom in stable condition.Marguerite Araujo, | | [facility] / [id number] / [id number] / [id number] / T: 10/08/2003 | |a clean granulating [...] | | | |JEMarcus / SALE[place] | |[id number] / [id number] / [id number] / | | | | | + + OPERATION RECORD (10/08/2003) + + | Transcriptions | + + | Interface, Environment Artist In - 09/19/2005 9:05 PM PST Date: | | 10/08/2003Attending Surgeon: Lloyd Garcia M.D.Pediatric Physician(s): | | Benson Boone M.D. Stas Menjivar, [...] | from the OR table to the [facility] with the hipsflexed and abduction pillow in place and | | brought from the Operating Room tothe Recovery Room in stable and satisfactory condition | | having tolerated theprocedure well without apparent complication. All counts were | | reportedcorrect prior to leaving the Operating Room. There were no apparenthypotensive | | episodes or other anesthetic difficulties.Lloyd Garcia M.D.Fermenter Helper, | | Orthopedics and Rehabilitation / [id number] / [id number] / [id number] / T: | | 10/08/2003 | |tube [...] | | | |Lloyd Garcia M.D. | |Fermenter Helper, Orthopedics and Rehabilitation | | | | / | |[id number] / [id number] / [id number] / | | | | | + + OPERATION RECORD (10/05/2003) + + | Transcriptions | + + | Interface, Environment Artist In - 09/19/2005 9:05 PM PST Date: | | 10/05/2003Attending Surgeon: Lloyd Garcia M.D.Pediatric Physician(s): | | Benson Boone M.D.Preoperative Diagnosis(es):Right hip [...] | case.Benson Boone M.D.Lloyd Garcia M.D.RT / [id number] / [id number] / [id number] / 35561I: | | 10/05/2003T: 10/05/2003 | |flap for [...] | | | |RT / HS | |[id number] / [id number] / [id number] / 28969 | | | | | + + documented in this encounter Visit Diagnoses Not on filedocumented in this encounter"
--- OUTSIDE RECORDS SUMMARY | ~2020-04-27 | XMS | Encounter Summary ---
Demographics + + + | Address | [address] | | | [place] [address] | + + + | Home Phone | | + + + | Preferred Language | Unknown | + + + | Marital Status | | + + + | Scientologist Affiliation | [id number] | + + + | Race | Unknown | + + + | Ethnic Group | Unknown | + + + Author + + + | Author | [facility] | | | and [place] | + + + | Organization | [facility] | | | [...] Team Providers + +------+ + | Care Jboss Architect Name | Role | Phone | + +------+ + | Karli Hammonds | PCP | | | MD | | | + +------+ + Reason for Visit +--------+--------+ + | Reason | Onset | Comments | | | Date | | +--------+--------+ + | Other | 09/26/ | | | | 2015 | | +--------+--------+ + Encounter Details +--------+ + + + + | Date | Type | Department | Care Team | Description | +--------+ + + + + | 09/26/ | Telephone | [facility] | Ladarius Martínez PA | Other | | 2016 | | SLEEP DISORDER [address] | [address] | | | | | [address] [place] | [place], [place] | | | | | [place] [address] | [address] | | | | | [phone] | | | +--------+ + + + [...] encounter Miscellaneous Notes Telephone Encounter - Maegan Munoz Maintenance Scheduler - 09/27/2016 11:33 AM PSTPatient ca lled back appointment has been scheduled. elephone Encounter - Maegan Munoz Maintenance Scheduler - 09/26/2016 1:12 PM PSTCalled left message needing to schedule 6 month follow up with Pac. Yaya Left message on voicemail. mary escalante in this encounter Plan of Treatment +--------+---------+ + + + | Date | Type | Specialty | Care Team | Description | +--------+---------+ + + + | 05/23/ | Office | Pain Medicine | Xiang Sepulveda, | | | 2019 | Visit | | DO [address] | | | | | | [place] | | | | | | [id number] | | | | | | | | +--------+---------+ + + + documented as of this encounter Visit Diagnoses Not on filedocumented in this encounter"
--- OUTSIDE RECORDS SUMMARY | ~2020-04-27 | XMS | Encounter Summary ---
Demographics + + + | Address | [address] | | | [place] [address] | + + + | Home Phone [...] + +------+ + | Care Director Of Admissions Name | Role | Phone | [...] as of this encounter Progress Notes Interface, Motor Block Mechanic In - 07/14/2006 1:10 AM PDTCLINIC DATE: [...] improve her hip pain. Lloyd Garcia M.D. Biztalk Administrator, Orthopedics and Rehabilitation / [id number] / [id number] / [id number] / [id number] cc: Helio Xie M.D. [place], [place] [id number] signed by Interface, Motor Block Mechanic In at 07/14/2006 1:1 0 AM PDTdocumented in this encounter Plan of Treatment Not on filedocumented as of this encounter Visit Diagnoses Not on filedocumented in this encounter"
--- OUTSIDE RECORDS SUMMARY | ~2020-04-27 | XMS | Encounter Summary ---
Demographics + + + | Address | [address] | | | [place] [...] Team Providers + +------+ + | Care Housing Director Name | Role | Phone | [...] as of this encounter Progress Notes Interface, Life Guard In - 04/28/2005 5:10 PM PDTClinic Date: [...] has been at her friend's house in [facility] and has been receiving IV antibiotics via [...] Benson Boone M.D. Lloyd Garcia M.D. / [id number] / [id number] / [id number] / [id number] Tdocumented in this encounter Plan of Treatment Not on filedocumented as of this encounter Visit Diagnoses Not on filedocumented in this encounter"
--- OUTSIDE RECORDS SUMMARY | ~2020-04-27 | XMS | Encounter Summary ---
Demographics + + + | Address | [address] | | | [place] [address] | + + + | Home Phone [...] Team Providers + +------+ + | Care Facilities Maintenance Assistant Name | Role | Phone | [...] [facility] | | | | | | [address] | | | | | | Loop [facility] | | | | | | [place], [address] Floor | | | | | | [place], [place] | | | | | | [address] | | | | | | [phone] | | | +--------+ + + + [...]
--- OUTSIDE RECORDS SUMMARY | ~2020-04-27 | XMS | Encounter Summary ---
Demographics + + + | Address | [address] | | | [place] [address] | + + + | Home Phone [...] Providers + +------+ + | Care Machine Tack Puller Name | Role | Phone | [...] as of this encounter Progress Notes Interface, Polishing Wheel Repairer In - 06/11/2006 3:03 AM PDT [place] [facility] [place] [address] [place], [place] [address] FAX Department of Orthopaedics, [facility] [employer] [id number] November 27, 2001 Kalyan Wu M.D. [facility]-Orthopedics [address] 430 RE: SHELBY GALDAMEZ MR [...] the low back several years ago in [place], [place] which she described as showing deteriorating vertebrae at "T11-T12." She has not had any physical therapy for back. She does work out at a gym under the direction of physical therapy in [place]. She would like to start some exercises [...] contact me. Sincerely yours, Vince Krishna M.D. [facility] / [id number] / [id number] / [id number] / [id number] cc: Lloyd Garcia M.D. Orthopedics [address] 430 docume nted in this encounter Plan of Treatment Not on filedocumented as of this encounter Visit Diagnoses Not on filedocumented in this encounter
--- OUTSIDE RECORDS SUMMARY | ~2020-04-27 | XMS | Encounter Summary ---
Demographics + + + | Address | [address] | | | [place] [address] | + + + | Home Phone [...] Team Providers + +------+ + | Care Relay Tester Helper Name | Role | Phone | [...] | | | | Mailcode: [id number] | [place], [place] | | | | | [facility] | [address] | | | | | [place], [place] | [phone] | | | | | [address] | | | | | | [phone] | | | +--------+ + + + [...]
--- OUTSIDE RECORDS SUMMARY | ~2020-04-27 | XMS | Encounter Summary ---
Demographics + + + | Address | [address] | | | [place] [address] | + + + | Home Phone [...] Providers + +------+ + | Care Dye Padder Operator Name | Role | Phone | + +------+ + | Marta Jenkins RECREATION ENGINEER | PCP | | + +------+ + Encounter Details +--------+ + + + + | Date | Type | Department | Care Team | Description | +--------+ + + + + | 11/18/ | Abstract | Digestive Health | Clinic, Surgery | | | 2019 | | Center at [facility] [address] | | | | | | [address] [facility] | | | | | | for Health and | | | | | | Healing, [address] | | | | | | [place], [place] | | | | | | [address] | | | | | | [phone] | | | +--------+ + + + [...]
--- OUTSIDE RECORDS SUMMARY | ~2020-04-27 | XMS | Encounter Summary ---
Demographics + + + | Address | [address] | | | [place] [address] | + + + | Home Phone [...] Team Providers + +------+ + | Care Cerner Analyst Name | Role | Phone | [...] | | | Mailcode: [id number] | [facility] [place] | (injection) | | | | [facility] | [address] | | | | | [facility] [place] | [phone] | | | | | [address] | | | | | | [phone] | | | +--------+ + + + [...]
--- OUTSIDE RECORDS SUMMARY | ~2020-04-27 | XMS | Encounter Summary ---
Demographics + + + | Address | [address] | | | [place] [address] | + + + | Home Phone [...] Team Providers + +------+ + | Care Orthotic/Prosthetic Clinician Name | Role | Phone | + +------+ + | Travis Mcginnis MD | PCP | | + +------+ + Encounter Details +--------+ + + + + | Date | Type | Department | Care Team | Description | +--------+ + + + + | 10/02/ | Hospital | Radiology/Imaging | Royce Durand, | | | 2019 | Encounter | Lab at [facility] [address] | [address] [facility] | | | | | [facility] for | [facility] | | | | | Health and Healing, | [place], [place] | | | | | | [address] | | | | | Floor [place], [place] | [phone] | | | | | [address] | | | | | | [phone] | | | +--------+ + + + [...] + + + +---------+ + + | [place]-3 Fatty | Take by mouth. | | [...]
--- OUTSIDE RECORDS SUMMARY | ~2020-04-27 | XMS | Encounter Summary ---
Demographics + + + | Address | [address] | | | [place] [address] | + + + | Home Phone [...] Team Providers + +------+ + | Care Bench Boring Machine Operator Name | Role | Phone [...] [facility] | [address] | [place] [address] | | | PATHOLOGY | [address] | | | + + + + + | [facility] | [address] [place] [address] [address] | [place] [address] | | | PATHOLOGY | YFN CASILL[address] [...] by | | | | | | [facility] | | | | | | [facility] | | | | + + + + + + + + | Specimen | + + | | + + + + + + + | Performing | Address | City/State/Zipcode | Phone Number | | Organization | | | | + + + + + | [facility] | [address] | [place] [address] | | | LABORATORY | | | [...] | + + + + + | [facility] | [address] | [place] [address] | | | PATHOLOGY | [address] | | | + + + + + | [facility] | [facility] [address] | [place] [address] | | | PATHOLOGY | [address] [...] [facility] | [address] | [place] [address] | | | PATHOLOGY | [address] | | | + + + + + | [facility] | [address] [place] [address] [address] | [place] [address] | | | PATHOLOGY | [address] [...] by | | | | | | [facility] | | | | | | [facility]. | | | | + + + + + + + + | Specimen | + + | | + + + + + + + | Performing | Address | City/State/Zipcode | Phone Number | | Organization | | | | + + + + + | [facility] | [address] | [place] [address] | | | LABORATORY | | | [...] | + + + + + | [facility] DEPARTMENT | [address] | [place] [address] | | | PATHOLOGY | [address] | | | + + + + + | [facility] DEPARTMENT OF | [address] | [place] [address] | | | PATHOLOGY | [address] | | | + + + + + documented in this encounter Visit Diagnoses Not on filedocumented in this encounter"
--- OUTSIDE RECORDS SUMMARY | ~2020-04-27 | XMS | Encounter Summary ---
Demographics + + + | Address | [address] | | | [place] [address] | + + + | Home Phone [...] Providers + +------+ + | Care Deputy Fire Marshal Name | Role | Phone | + +------+ + | Marta Jenkins EXPORT ADMINISTRATOR | PCP | | + +------+ + [...] | | | | Mailcode: [id number] | [place], [place] | | | | | [facility] | [address] | | | | | [place], [place] | [phone] | | | | | [address] | | | | | | [phone] | | | +--------+ + + + [...]
--- OUTSIDE RECORDS SUMMARY | ~2020-04-27 | XMS | Encounter Summary ---
Demographics + + + | Address | [address] | | | [place] [address] | + + + | Home Phone [...] Providers + +------+ + | Care Manager Of Finance Name | Role | Phone | + [...] as of this encounter Progress Notes Interface, Space Planner In - 04/28/2005 5:10 PM PDTClinic Date: 08/31/2003 Orthopedic The patient called on August 31, 2003, requesting a prescription refill for oxycodone. A prescription refill was granted 50, 5 mg oxycodone was sent. This prescription refill was handled by Mariella Camacho. Dev Fleming M.D. / [id number] / [id number] / [id number] / Tdocumented in this encounter Plan of Treatment Not on filedocumented as of this encounter Visit Diagnoses Not on filedocumented in this encounter"
--- OUTSIDE RECORDS SUMMARY | ~2020-04-27 | XMS | Encounter Summary ---
Demographics + + + | Address | [address] | | | [place] [address] | + + + | Home Phone [...] Team Providers + +------+ + | Care Betting Clerks Name | Role | Phone | + [...] | | [address] | Roxann Ayala [place], | | | | | Mailcode: PV430 | [place] [address] | | | | | [facility] | | | | | | [place], [place] | | | | | | [address] | | | | | | [phone] | | | +--------+ + + + [...]
--- OUTSIDE RECORDS SUMMARY | ~2020-04-27 | XMS | Encounter Summary ---
Demographics + + + | Address | [address] | | | [place] [address] | + + + | Home Phone [...] Team Providers + +------+ + | Care Regional Office Coordinator Name | Role | Phone | [...] | | | | | | Jamie [place], | | | | | | | [place] | | | | | | | [address] | | | | | | | Phone: | | | | | | | [phone] | | | | | | | Fax: | | | | | | | [phone] | +--------+--------+ + + + + Encounter [...] | | arthroplasty) | | | | [place], [place] | | | | | | [address] | | | | | | [phone] | | | +--------+---------+ + + + [...] still well controlled at this point with [place]. She has been wbat and is overall [...] view Consult to rehabilitation physical therapy outside [facility] documented in this encounter Plan of Treatment [...]
--- OUTSIDE RECORDS SUMMARY | ~2020-04-27 | XMS | Encounter Summary ---
Demographics + + + | Address | [address] | | | [place] [address] | + + + | Home Phone | | + + + | Preferred Language | Unknown | + + + | Marital Status | | + + + | Rastafari Affiliation | 1076 | + + + | Race | Unknown | + + + | Ethnic Group | Unknown | + + + Author + + + | Author | [facility] | | | and [place] | + + + | Organization | [facility] | | [...] Providers + +------+ + | Care Machine Tool Operator Name | Role | [...] + + | 07/20/ | Telephone | [facility] | Jasper Medrano, | Referral Question | | 2018 | | [address] | [address] | (nutrition referral | | | | [place], [place] | [place] | question) | | | | [address] | [id number] | | | | | [phone] | | | +--------+ + + + [...] Miscellaneous Notes Telephone Encounter - Kina Hendrix Airborne Mission Systems Superintendent - 07/20/2019 4:20 PM PDTPatient called wanting to know if we had a referral for nutrition. I Tried calling patient to answer her question regarding the Nutrition Referral, but there was no answer, so I left a VM. Patient refused Nutritional Service & referral got closed. Patient can call [facility] at .Electronically signed by Kina Hendrix Airborne Mission Systems Superintendent at 07/01 4:51 PM PDTTelephone Encounter - Deb Terrazas - 07/20/2019 2:34 PM PDTAnswe ring Service Message from 07/20/19 @ 2:25pm: I would like to know if you have a referral for a silver steward. Please call back. documented in this encounter [...] [place] | | | | | | [id number] | | | | | | | | +--------+---------+ + + + documented as of this encounter Visit Diagnoses Not on filedocumented in this encounter"
--- OUTSIDE RECORDS SUMMARY | ~2020-04-27 | XMS | Encounter Summary ---
Demographics + + + | Address | [address] | | | [place] [address] | + + + | Home Phone [...] Team Providers + +------+ + | Care Specification Writer Name | Role | Phone | [...] Pavilion | | | | | | [place], [place] | | | | | | [address] | | | | | | [phone] | | | +--------+ + + + [...] | | + +---------+ + + | [facility] DEPARTMENT OF | | | | | RADIOLOGY | | | | + +---------+ + + documented in this encounter Visit Diagnoses Not on filedocumented in this encounter"
--- OUTSIDE RECORDS SUMMARY | ~2020-04-27 | XMS | Encounter Summary ---
Demographics + + + | Address | [address] | | | [place] [address] | + + + | Home Phone [...] Providers + +------+ + | Care Quality Control Expert Name | Role | Phone | + [...] as of this encounter Progress Notes Interface, Radio Adjuster In - 04/01/2006 3:12 AM PDTCLINIC DATE: [...] a total hip replacement. Lloyd Garcia M.D. Spray Gun Operator, Orthopedics and Rehabilitation / [id number] / [id number] / [id number] / cc: Ninfa Guillen M.D. [address] [id number] signed by Interface, Radio Adjuster In at 04/01/2006 3:1 2 AM PDTdocumented in this encounter Plan of Treatment Not on filedocumented as of this encounter Visit Diagnoses Not on filedocumented in this encounter"
--- OUTSIDE RECORDS SUMMARY | ~2020-04-27 | XMS | Encounter Summary ---
Demographics + + + | Address | [address] | | | [place] [address] | + + + | Home Phone [...] Team Providers + +------+ + | Care Floor Covering Printer Name | Role | Phone | + +------+ + | Travis Mcginnis MD | PCP | | + +------+ + Encounter Details +--------+ + + + + | Date | Type | Department | Care Team | Description | +--------+ + + + + | 11/09/ | Documentati | Vascular Access at | Lis Banuelos | | | 2010 | on | [facility] [address] | HERMINIO Swain [address] | | | | | [address] | [address] | | | | | [facility] | Rd [place], [place] | | | | | [place], [place] | [address] | | | | | [address] | | | | | | [phone] | | | +--------+ + + + [...]
--- OUTSIDE RECORDS SUMMARY | ~2020-04-27 | XMS | Encounter Summary ---
Demographics + + + | Address | [address] | | | [place] [address] | + + + | Home Phone [...] Team Providers + +------+ + | Care Floorworker Lasting Name | Role | Phone | + +------+ + | Marta Jenkins CARBIDE GRINDER | PCP | | + +------+ + [...] | Jamie Mailcode: [address] [place], | | | | | [place], [place] | [place] [address] | | | | | [address] | | | | | | [phone] | | | +--------+ + + + [...]
--- OUTSIDE RECORDS SUMMARY | ~2020-04-27 | XMS | Encounter Summary ---
Demographics + + + | Address | [address] | | | [place] [address] | + + + | Home Phone [...] Team Providers + +------+ + | Care Foundation Engineer Name | Role | Phone | + +------+ + | Travis Mcginnis MD | PCP | | + +------+ + Encounter Details +--------+ + + + + | Date | Type | Department | Care Team | Description | +--------+ + + + + | 01/01/ | Abstract | Infectious | Carolina Putnam | | | 2010 | | Diseases at [facility] | MEGAN Reddy [address] | | | | | [address] | [address] | | | | | Loop Physician's | [place], [place] | | | | | [place], 3rd floor | [address] | | | | | [place], [place] | [phone] | | | | | [address] | | | | | | [phone] | | | +--------+ + + + [...] + | SEDIMENTATION RATE | Routin | 01/01/2011 | | Results for this | | | e | 12:15 PM | | procedure are in the | | | | PDT | | results section. | + +--------+ + + + documented in this encounter Results SEDIMENTATION RATE (01/01/2011 12:15 PM PDT) + +-------+ + + + | Component | Value | Ref Range | Performed | Pathologist | | | | | At | Signature | + +-------+ + + + | SEDIMENTATI | 48 | mm/hr | [facility] | | | ON RATE | | [...] | + + + + + | [facility] | [address] | [place] [address] | | | CENTER - [place] | | | | + + + + + documented in this encounter Visit Diagnoses Not on filedocumented in this encounter"
--- OUTSIDE RECORDS SUMMARY | ~2020-04-27 | XMS | Encounter Summary ---
Demographics + + + | Address | [address] | | | [place] [address] | + + + | Home Phone [...] Team Providers + +------+ + | Care Pharmaceutical Physician Name | Role | Phone | [...] | | | | | | [place], [facility] Floor | | | | | | [place], [place] | | | | | | [address] | | | | | | [phone] | | | +--------+ + + + [...] X-RAY HIP 2 | Med Rec No: [id number] | | | | | VIEWS | Name: | | | | | RIGHT W/ | SHELBY GALDAMEZ C | | | | | PELVIS 1 | Birthday: 1960 | | | | | VIEW | Sex: F | | | | | | Alias:Patient Location: | | | | | | [id number]: Outpatient | | | | | | [...] # | | | | | | [id number]:PELVIS | | | | | | ONE [...]
--- OUTSIDE RECORDS SUMMARY | ~2020-04-27 | XMS | Encounter Summary ---
Demographics + + + | Address | [address] | | | [place] [address] | + + + | Home Phone | | + + + | Preferred Language | Unknown | + + + | Marital Status | | + + + | Oriental Orthodox Affiliation | 1076 | + + + | Race | Unknown | + + + | Ethnic Group | Unknown | + + + Author + + + | Author | [facility] | | | and [place] | + + + | Organization | [facility] | | [...] Providers + +------+ + | Care Teacher Associate Name | Role | Phone | [...] + + | 10/02/ | Telephone | [facility] | Augie Valdivia MD | Appointment | | 2012 | | GASTROENTEROLOGY | [address] [facility] | (procedure scheduled | | | | [address] [facility] | [address] [place], [place] | Oct.24 insurance | | | | [address] [place], [place] | [address] | denies coverage for | | | | [address] | | endoscopy) | | | | [phone] | | | +--------+ + + + [...] [place] | | | | | | [id number] | | | | | | | | +--------+---------+ + + + documented as of this encounter Visit Diagnoses Not on filedocumented in this encounter
--- OUTSIDE RECORDS SUMMARY | ~2020-04-27 | XMS | Encounter Summary ---
Demographics + + + | Address | [address] | | | [place] [address] | + + + | Home Phone | | + + + | Preferred Language | Unknown | + + + | Marital Status | | + + + | Amish Affiliation | 1076 | + + + | Race | Unknown | + + + | Ethnic Group | Unknown | + + + Author + + + | Author | [facility] | | | and [place] | + + + | Organization | [facility] | | | [...] Team Providers + +------+ + | Care Forensic Toxicologist Name | Role | Phone | + +------+ + | Jaimie Monreal MD | PCP | | + +------+ + Encounter Details +--------+ + + + + | Date | Type | Department | Care Team | Description | +--------+ + + + + | 07/29/ | Orders Only | [facility] | Andrey, Bettye | Left hip pain; | | 2018 | | [address] | Y, Emissions Engineer | Morbid obesity with | | | | [place], [place] | | BMI of 50.0-59.9, | | | | [address] | | adult (HCC) | | | | [phone] | | | +--------+ + + + [...] [place] | | | | | | [address] | | | | | | | | +--------+---------+ + + + documented as of this encounter Procedures + +--------+ + + + | Procedure Name | Priori | Date/Time | Associated Diagnosis | Comments | | | ty | | | | + +--------+ + + + | SEDIMENTATION RATE | Routin | 07/29/2019 | Left hip pain | Results for this | | | e | 10:58 AM | | procedure are in the | | | | PDT | | results section. | + +--------+ + + + | COBALT | Routin | 07/29/2019 | Left hip pain | Results for this | | | e | 10:58 AM | | procedure are in the | | | | PDT | | results section. | + +--------+ + + + | CHROMIUM, SERUM | Routin | 07/29/2019 | Left hip pain | Results for this | | | e | 10:58 AM | | procedure are in the | | | | PDT | | results section. | + +--------+ + + + | CBC WITH | Routin | 07/29/2019 | Left hip pain | Results for this | | DIFFERENTIAL | e | 10:58 AM | | procedure are in the | | | | PDT | | results section. | + +--------+ + + + | C-REACTIVE PROTEIN | Routin | 07/29/2019 | Left hip pain | Results for this | | | e | 10:58 AM | | procedure are in the | | | | PDT | | results section. | + +--------+ + + + | PREALBUMIN | Routin | 07/29/2019 | Left hip pain | Results for this | | | e | 10:58 AM | Morbid obesity with | procedure are in the | | | | PDT | BMI of 50.0-59.9, | results section. | | | | | adult (HCC) | | + +--------+ + + + documented in this encounter Results CBC with Differential (07/29/2019 10:58 AM PDT) [...] | | | Absolute | performed at [facility];[address] | [address] | LAB | | | | [place] | | [facility] | | | | [address];[place] [address] | | LABORATORY | | + + + + + + + + | Specimen | + + | Blood | + + + + + + + | Performing | Address | City/State/Zipcode | Phone Number | | Organization | | | | + + + + + | REFERENCE LAB | [address] [facility] [address] | [place] | [phone] | | [facility] | [address] | [address] | | | LABORATORY | | | | + + + + + | REFERENCE LAB | [address] [facility] [address] | [place] | | | [facility] | Blvd[address] | [address] | | | LABORATORY | | | [...] [place] | | | | | | [address] [place] [place] | | | | | | [address] | | | | + + + + + + + + | Specimen | + + | Blood | + + + + + + + | Performing | Address | City/State/Zipcode | Phone Number | | Organization | | | | + + + + + | REFERENCE LAB | [address] [place] [address] [address] | [place] | [phone] | | [facility] | Blvd[address] | [address] | | | LABORATORY | | | | + + + + + | REFERENCE LAB | [address] [facility] | [place] | | | [facility] | [address] | [address] | | | LABORATORY | | | | + + + + + [place] (07/29/2019 10:58 AM PDT) + + + + + + | Component | Value | Ref Range | Performed | Pathologist | | | | | At | Signature | + + + + + + | [place], | None DetectedComment: | 0.0 - 0.9 ug/L | REFERENCE | | | Ser/Plas | This test was developed | | LAB | | | | and its performance | | [facility] | | | | characteristicsdetermine | | LABORATORY | | | | d by [facility]. It has not | | | | [...] | | | | | performed at [facility], [address] | | | | | | [place] | | | | | | [place] [address] | | | | + + + + + + + + | Specimen | + + | Blood | + + + + + + + | Performing | Address | City/State/Zipcode | Phone Number | | Organization | | | | + + + + + | REFERENCE LAB | [address] [place] [address] | [place], [place] | [phone] | | [facility] | Bl[address] | [address] | | | LABORATORY | | | | + + + + + | REFERENCE LAB | [address] [place] [address] | [place] | | | [facility] | Blvd[address] | [address] | | | LABORATORY | | | [...] | | [facility] | | | | Blvd;[place] [address] | | LABORATORY | | + + + + + + + + | Specimen | + + | Blood | + + + + + + + | Performing | Address | City/State/Zipcode | Phone Number | | Organization | | | | + + + + + | REFERENCE LAB | [address] [place] [address] | [place], [place] | [phone] | | [facility] | [address] | [address] | | | LABORATORY | | | | + + + + + | REFERENCE LAB | [address] [place] [address] | [place], [place] | | | [facility] | Blvd. | [address] | | | LABORATORY | | | [...] REFERENCE | | | | performed at [facility];[address] | | LAB | | | | [place] | | [facility] | | | | [address];[place] [address] | | LABORATORY | | + + + + + + + + | Specimen | + + | Blood | + + + + + + + | Performing | Address | City/State/Zipcode | Phone Number | | Organization | | | | + + + + + | REFERENCE LAB | [address] [place] [address] | [place], [place] | [phone] | | [facility] | Bl[address] | [address] | | | LABORATORY | | | | + + + + + | REFERENCE LAB | [address] [place] [address] | [place], [place] | | | [facility] | Blvd[address] | [address] | | | LABORATORY | | | | + + + + + C-Reactive Protein (07/29/2019 10:58 AM PDT) + + + + + + | Component | Value | Ref Range | Performed | Pathologist | | | | | At | Signature | + + + + + + | CRP | 1.0 (H)Comment: Testing | <0.5 mg/dL | REFERENCE | | | | performed at [facility];[address] | | LAB | | | | [place] | | [facility] | | | | [address];[place] [address] | | LABORATORY | | + + + + + + + + | Specimen | + + | Blood | + + + + + + + | Performing | Address | City/State/Zipcode | Phone Number | | Organization | | | | + + + + + | REFERENCE LAB | [address] | [place] | [phone] | | [facility] | [address]vd[address] | [address] | | | LABORATORY | | | | + + + + + | REFERENCE LAB | [address] | [place] | | | [facility] | Blvd. | [address] | | | LABORATORY | | | | + + + + + documented in this encounter Visit Diagnoses + + | Diagnosis | + + | Left hip pain Pain in joint, pelvic region and thigh | + + | Morbid obesity with BMI of 50.0-59.9, adult (HCC) | + + documented in this encounter"
--- OUTSIDE RECORDS SUMMARY | ~2020-04-27 | XMS | Encounter Summary ---
Demographics + + + | Address | [address] | | | [place] [address] | + + + | Home Phone | | + + + | Preferred Language | Unknown | + + + | Marital Status | | + + + | Synagogue Affiliation | 1076 | + + + | Race | Unknown | + + + | Ethnic Group | Unknown | + + + Author + + + | Author | [facility] | | | and [place] | + + + | Organization | [facility] | | | [...] Providers + +------+ + | Care Manager Application Name | Role | Phone | + [...] | | | | | [address] | | | | | | [place], [place] | | | | | | [address] | | | | | | [phone] | | | +--------+ + + + [...] [place] | | | | | | [address] | | | | | | | | +--------+---------+ + + + documented as of this encounter Visit Diagnoses Not on filedocumented in this encounter
--- OUTSIDE RECORDS SUMMARY | ~2020-04-27 | XMS | Encounter Summary ---
Demographics + + + | Address | [address] | | | [place] [address] | + + + | Home Phone [...] + +------+ + | Care Entry Level Financial Analyst Name | Role | Phone | [...] as of this encounter Progress Notes Interface, Hydraulic Press Tender In - 02/27/2006 3:05 AM PDTClinic Date: [...] M.D. Lloyd Garcia M.D. RT / HS [id number] / [id number] / [id number] / [id number] Watt, Hydraulic Press Tender In - 02/27/2006 3:05 AM PDTClinic Date: [...] is any deep infection. Lloyd Garcia M.D. High School Biology Teacher Orthopedics and Rehabilitation Jackelyn A [id number] cc: Ninfa Barrientos MD [address] [place] [id number] signed by Interface, Hydraulic Press Tender In at 6 3:05 AM PDTdocumented in this encounter Plan of Treatment Not on filedocumented as of this encounter Visit Diagnoses Not on filedocumented in this encounter"
--- OUTSIDE RECORDS SUMMARY | ~2020-04-27 | XMS | Encounter Summary ---
Demographics + + + | Address | [address] | | | [place] [address] | + + + | Home Phone | | + + + | Preferred Language | Unknown | + + + | Marital Status | | + + + | Roman Catholic Affiliation | 1076 | + + + [...] Team Providers + +------+ + | Care Telemarketing Fundraiser Name | Role | Phone | + +------+ + PCP | Unavailable | + +------+ + Encounter Details +--------+ + + + + | Date | Type | Department | Care Team | Description | +--------+ + + + + | 09/18/ | [facility] | [facility] | Helio Ahn | | | 2005 | Encounter | MED CTR SLEEP | MD Candie [address] | | | | | CENTER [address] | [address] [facility] | | | | | [place] | [place] [address] | | | | | [address] | [phone] | | | | | [phone] | | | +--------+ + + + [...] [place] | | | | | | [address] | | | | | | | | +--------+---------+ + + + documented as of this encounter Visit Diagnoses Not on filedocumented in this encounter"
--- OUTSIDE RECORDS SUMMARY | ~2020-04-27 | XMS | Encounter Summary ---
Demographics + + + | Address | [address] | | | [place] [address] | + + + | Home Phone [...] Providers + +------+ + | Care Manufacturing Teacher Name | Role | Phone | [...] | | | unspecified | | Rd [place], | | | | | whether | | [place] | | | | | generalized | | [address] | | | | | or | | Phone: | | | | | localized, | | [phone] | | | | | pelvic | | Fax: | | | | | region and | | [phone] | | | | | thigh Pain [...] | | | | Mailcode: [id number] | [place], [place] | internal joint | | | | [facility] | [address] | prosthesis (HCC) | | | | [place], [place] | [phone] | (Primary Dx) | | | | [address] | | | | | | [phone] | | | +--------+---------+ + + + [...] has been indic ated for [facility] in [place], but they want the ok from [place]. [...] prn f/u here as she lives near [place]. d ocumented in this encounter Plan of [...]
--- OUTSIDE RECORDS SUMMARY | ~2020-04-27 | XMS | Encounter Summary ---
Demographics + + + | Address | [address] | | | [place] [address] | + + + | Home Phone [...] Team Providers + +------+ + | Care Hydrostatic Tester Name | Role | Phone | [...] Pavilion | | | | | | [place], [place] | | | | | | [address] | | | | | | [phone] | | | +--------+ + + + [...] | + + + + + | [facility] | [address] | [place] [address] | | | LABORATORY | | | [...] | + + + + + | [facility] DEPARTMENT | [address] [facility] | [place] [address] | | | PATHOLOGY | [address] | | | + + + + + | [facility] DEPARTMENT | [address] [place] [address] | [place] [address] | | | PATHOLOGY | [address] [...] | + + + + + | [facility] DEPARTMENT OF | [address] | [place] [address] | | | PATHOLOGY | [address] | | | + + + + + | [facility] DEPARTMENT OF | [address] | [place] [address] | | | PATHOLOGY | [address] [...] [facility] | [address] | [place] [address] | | | PATHOLOGY | [address] | | | + + + + + | [facility] | [address] | [place] [address] | | | PATHOLOGY | [address] [...]
--- OUTSIDE RECORDS SUMMARY | ~2020-04-27 | XMS | Encounter Summary ---
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 She has made this appointment for clarification and also regarding her total hip replacement which is being planned. The options of conservative treatment and operative treatment have been dealt with in detail, and the options of weight reduction, physiotherapy, walking stick, and nonsteroidal anti-inflammatories which she is already on. She has been tried on all these modalities with not much improvement, so therefore she had been advised surgery on the previous visit. She is here today to discuss the surgical options, as she has got arthritis on both sides of the hip joint with an established, ideally, femoral head component. The ideal procedure would be a total hip replacement when she decides to have one. The advantages and disadvantages of the total hip replacement have been explained and the life expectancy of 10 to 50 years of the total joint replacement has been given in the prospective, and she seems to understand all the modalities. She will be reviewed in this Outpatient Clinic in about a month's time to reassess her degenerative changes and that stage, further plan for going ahead with the surgery will be decided. She is to make an appointment to see us in one month's time with fresh x-rays on arrival of her right hip, AP and lateral views. Fox Chopra M.D. BETH / SALEEM [id number] / [id number] / [id number] / C: 02/18/2000 jerman Noland M.D. [place], [place] [address] [place] [address], [address] [place], [place] [id number] signed by Interface, Accident Report Clerk In at 08/20/2006 3:01 AM PSTInterface, Accident Report Clerk In - 08/20/2006 3:01 AM PSTCLINIC DATE: 02/13/2000 ORTHOPEDIC CLINIC HISTORY: Patient is a 39-year-old obese female with end stage DJD of the right hip on both plain radiographs and CT arthrogram. She returns to clinic today to discuss further her options. She has been having great difficulty getting insurance to pay for her hydro and aqua therapy, which have been the only things that have reliably relieved her pain to the point where she can continue with the activities of daily living. I have a note here from her physical therapist, Rustam Sykes, at [facility] in [place], [place], which indicates that she has been receiving three times weekly physical therapy with progressive home exercise therapy as well as the aquatic therapy in clinic, and that she has been feeling better as of February 09, 2000. She can walk further and has less pain and can sleep longer due to decreased pain. As well, she has had improved active and passive motion in the right hip and increased strength in the right hip and lumbar spine with improved endurance. She tolerates 40 minutes in the exercise pool. He feels she would continue to benefit from physical therapy 2-3 times per week, especially the aquatic therapy. However, the insurance company will not approve payments beyond that point. He has arranged for her to have local aquatic therapy at the athletic pool where she has been receiving her aqua therapy, but this would require payment of a membership fee, which it is uncertain the insurance company will cover. He has offered his services to help in any additional way at phone number [phone]. PHYSICAL EXAMINATION: Essentially unchanged from previous exams. She continues to have pain at the extremes of right hip motion. She is still obese and still walks with a right coxalgic gait. She, however, does lean over the hip less during stance phase and appears to have improved strength in her hip flexors and abductors. DISPOSITION: Dr. Chopra and I have again had lengthy conversations with her regarding her options, as her symptoms seem to be improving. At this point, we will continue the current treatment plan and have her return to clinic on March 14, 2000, with her AP of her hip and pelvis, AP and frog lateral of her right hip. Please see Dr. Chopra's note for additional details. Once again, we have reviewed all of the options from nonoperative treatment to arthrodesis to resection arthroplasty to hemiarthroplasty and total hip arthroplasty. Because of her ipsilateral low back and knee problems, I think she is a poor candidate for arthrodesis, and would reserve resection arthroplasty as a salvage procedure. Unfortunately, this leaves us with total joint arthroplasty given the involvement of both sides of her joint making hemiarthroplasty less likely to be successful. Unfortunately, she is only 39 years old and obese, and these would mitigate against performing total hip arthroplasty any earlier than absolutely necessary at this point. Lloyd Garcia M.D. Automotive Warranty Administrator, Orthopedics and Rehabilitation / [id number] / [id number] / [id number] / cc: Helio Noland [place], [place] [address] [place] [address] documented in this encounter Plan of Treatment Not on filedocumented as of this encounter Visit Diagnoses Not on filedocumented in this encounter"
--- OUTSIDE RECORDS SUMMARY | ~2020-04-27 | XMS | Encounter Summary ---
Demographics + + + | Address | [address] | | | [place] [address] | + + + | Home Phone [...] Team Providers + +------+ + | Care Steam Trap Worker Name | Role | Phone | [...] | Medicine and | Lumbar | Kalyan Brarientos MD | MD Vince | | | | Rehab / | radiculopath | [address] | [address] | | | | Orthopedics | y | [address] | [address] | | | | | Procedures | [address] | [address] [place], | | | | | CONSULT TO | [place], [place] | [place] | | | | | ORTHOPEDICS | [address] | [address] | | | | | AND | Phone: | Phone: | | | | | REHABILITATI | [phone] | [phone] | | | | | ON | Fax: | Fax: | | | | | | [phone] | [phone] | +--------+--------+ + + + + Encounter Details +--------+---------+ + + + | Date | Type | Department | Care Team | Description | +--------+---------+ + + + | 04/10/ | Office | Orthopaedic Spine | Krishna, Vince, MD | Back pain (Primary | | 2010 | Visit | Center at [facility] [address] | [address] | Dx) | | | | [address] | [address] [place], | | | | | Mailcode: [id number] | [place] [address] | | | | | [facility] | [phone] | | | | | and Healing, | | | | | | Building | | | | | | Floor [place], [place] | | | | | | [address] | | | | | | [phone] | | | +--------+---------+ + + + [...]
--- OUTSIDE RECORDS SUMMARY | ~2020-04-27 | XMS | Encounter Summary ---
Demographics + + + | Address | [address] | | | [place] [address] | + + + | Home Phone [...] Providers + +------+ + | Care Barrel Rifler Hook Name | Role | Phone | + [...] as of this encounter Progress Notes Interface, Demurrage Clerk In - 08/31/2006 1:03 AM PSTCLINIC DATE: [...] more. PHYSICAL EXAMINATION: She ambulates with a ulifczfj-mc-ifedab right coxalgic gait leaning over the right [...] her primary care physician. Lloyd Garcia M.D. Furrier Designer, Orthopedics and Rehabilitation / [id number] / [id number] / [id number] / [id number] C: 10/23/1999 kavita cc: Helio Noland M.D. [facility] [address] Benson Cooper M.D. [facility] Orthopedics Rehabilitation [address], [address] [place] documented in this encounter Plan of Treatment Not on filedocumented as of this encounter Visit Diagnoses Not on filedocumented in this encounter"
--- OUTSIDE RECORDS SUMMARY | ~2020-04-27 | XMS | Encounter Summary ---
Demographics + + + | Address | [address] | | | [place] [address] | + + + | Home Phone [...] Team Providers + +------+ + | Care Reprint Sorter Name | Role | Phone | [...] as of this encounter Progress Notes Interface, Quality Nurse In - 04/28/2005 6:17 PM PDTClinic Date: [...] is completed this weekend. Lloyd Garcia M.D. Alarm Signal Operator, Orthopedics and Rehabilitation / [id number] / [id number] / [id number] / [id number] cc: Ninfa Guillen M.D. [address] [place] [address], [place] [id number] signed by Interface, Quality Nurse In at 04/28/2005 6:1 7 PM PDTdocumented in this encounter Plan of Treatment Not on filedocumented as of this encounter Visit Diagnoses Not on filedocumented in this encounter"
--- OUTSIDE RECORDS SUMMARY | ~2020-04-27 | XMS | Encounter Summary ---
Demographics + + + | Address | [address] | | | [place] [address] | + + + | Home Phone [...] Team Providers + +------+ + | Care Auth Specialist Name | Role | Phone | [...] as of this encounter Progress Notes Interface, Branch Associate Teller In - 06/03/2006 3:06 AM PDTCLINIC DATE: [...] by her new primary care physician in [place], and she is requesting a repeat hip [...] this would be inadvisable. Lloyd Garcia M.D. Superintendent Greens, Orthopedics and Rehabilitation / HS [id number] / [id number] / [id number] / [id number] cc: Ninfa Guillen M.D. [address] [facility] [place], [place] [id number] signed by Interface, Branch Associate Teller In at 06/03/2006 3:06 AM PDTInterface, Branch Associate Teller In - 06/03/2006 3:06 AM PDTCLINIC DATE: [...] go ahead and send her back to [facility] Radiology Musculoskeletal specialist for a right intraarticular hip injection as this is what she wants. We will currently hold off on hip replacement due to her young age, and she can follow up back in the clinic in 6months' time. Tr Mcghee M.D. Lloyd Garcia M.D. / [id number] / [id number] / [id number] / Tdocumented in this encounter Plan of Treatment Not on filedocumented as of this encounter Visit Diagnoses Not on filedocumented in this encounter"
--- OUTSIDE RECORDS SUMMARY | ~2020-04-27 | XMS | Encounter Summary ---
Demographics + + + | Address | [address] | | | [place] [address] | + + + | Home Phone [...] Team Providers + +------+ + | Care Presser All Around Name | Role | Phone | + [...] | Transcriptions | + + | Interface, Top Stop Attacher In - 09/19/2005 9:05 PM PST Date: | | 10/01/2003Attending Surgeon: Lloyd Garcia M.D.Operations Supervisor Chemical Cleaning(s): | | Benson Boone M.D.Preoperative Diagnoses:Right hip [...] cheilectomy on July | | 2002 via [facility]. It was complicated by greater trochanter hardware [...] Boone, | | Haleigh Garcia M.D.RT / [id number] / [id number] / [id number] / [id number]: 10/01/2003T: 10/02/2003 | |2002, was demonstrating that [...] | | | |RT / HS | |[id number] / [id number] / [id number] / [id number] | | | | | + + documented in this encounter Visit Diagnoses Not on filedocumented in this encounter"
--- OUTSIDE RECORDS SUMMARY | ~2020-04-27 | XMS | Encounter Summary ---
Demographics + + + | Address | [address] | | | [place] [address] | + + + | Home Phone [...] Providers + +------+ + | Care Cloth Desizing Range Operator Chief Name | Role | Phone | + +------+ + PCP | Unavailable | + +------+ + Encounter Details +--------+ + + + + | Date | Type | Department | Care Team | Description | +--------+ + + + + | // | Results | | Other, Faculty | | | 2003 | Only | | [phone] | | +--------+ + + + + [...] | + + + + + | [facility] DEPARTMENT OF | [address] | [place] [address] | | | PATHOLOGY | [address] | | | + + + + + | [facility] DEPARTMENT OF | [address] | [place] [address] | | | PATHOLOGY | [address] [...] | + + + + + | [facility] OF | [address] | [place] [address] | | | PATHOLOGY | [address] | | | + + + + + | [facility] OF | [address] | [place] [address] | | | PATHOLOGY | [address] [...] + + + | [facility] | [address] | [place] [address] | | | LABORATORY | | | [...] DEPARTMENT OF | [address] | [place] [address] | | | PATHOLOGY | [address] | | | + + + + + | [facility] DEPARTMENT OF | [address] | [place] [address] | | | PATHOLOGY | [address] [...] | + + + + + | [facility] DEPARTMENT OF | [address] [facility] | [place] [address] | | | PATHOLOGY | [address] | | | + + + + + | [facility] DEPARTMENT OF | [address] | [place] [address] | | | PATHOLOGY | [address] [...] | + + + + + | [facility] DEPARTMENT OF | [facility] | [place] [address] | | | PATHOLOGY | [address] | | | + + + + + | [facility] DEPARTMENT OF | [address] | [place] [address] | | | PATHOLOGY | [address] [...] + + | [facility] | [address] [facility] | [place] [address] | | | PATHOLOGY | [address] | | | + + + + + | [facility] | [address] [place] [address] | [place] [address] | | | PATHOLOGY | [address] [...] + + | [facility] | [address] [facility] | [place] [address] | | | PATHOLOGY | [address] | | | + + + + + | [facility] | [facility] | [place] [address] | | | PATHOLOGY | [address] [...] DEPARTMENT OF | [address] | [place] [address] | | | PATHOLOGY | [address] | | | + + + + + | [facility] DEPARTMENT OF | [address] | [place] [address] | | | PATHOLOGY | [address] | | | + + + + + CREATININE, PLASMA (10/04/2003 6:15 AM PST) + +-------+ + + + | Component | Value | Ref Range | Performed | Pathologist | | | | | At | Signature | + +-------+ + + + | CREATININE | 0.8 | 0.6 - 1.1 mg/dL | [facility] | | | PLASMA | | | [...] | + + + + + | [facility] DEPARTMENT OF | [address] [facility] | [place] [address] | | | PATHOLOGY | [address] | | | + + + + + | [facility] DEPARTMENT OF | [address] [facility] | [place] [address] | | | PATHOLOGY | [address] [...] DEPARTMENT OF | [address] | [place] [address] | | | PATHOLOGY | [address] | | | + + + + + | [facility] DEPARTMENT | [address] | [place] [address] | | | PATHOLOGY | [address] [...] | + + + + + | [facility] DEPARTMENT OF | [address] | [place] [address] | | | PATHOLOGY | [address] | | | + + + + + | [facility] DEPARTMENT OF | [address] | [place] [address] | | | PATHOLOGY | [address] [...] + + | [facility] | [address] | [place] [address] | | | PATHOLOGY | [address] | | | + + + + + | [facility] | [address] | [place] [address] | | | PATHOLOGY | [address] | | | + + + + + documented in this encounter Visit Diagnoses Not on filedocumented in this encounter"
--- OUTSIDE RECORDS SUMMARY | ~2020-04-27 | XMS | Encounter Summary ---
Demographics + + + | Address | [address] | | | [place] [address] | + + + | Home Phone [...] Team Providers + +------+ + | Care Vegetable Loader Machine Operator Name | Role | Phone [...] Pavilion | | | | | | [place], [place] | | | | | | [address] | | | | | | [phone] | | | +--------+ + + + [...]
--- OUTSIDE RECORDS SUMMARY | ~2020-04-27 | XMS | Encounter Summary ---
Demographics + + + | Address | [address] | | | [place] [address] | + + + | Home Phone [...] Team Providers + +------+ + | Care Ivory Polisher Name | Role | Phone | [...] | | | | Mailcode: [id number] | [place], [place] | not done yet | | | | [facility] | [address] | 07-18.) | | | | [place], [place] | [phone] | | | | | [address] | | | | | | [phone] | | | +--------+ + + + [...]
--- OUTSIDE RECORDS SUMMARY | ~2020-04-27 | XMS | Encounter Summary ---
Demographics + + + | Address | [address] | | | [place] [address] | + + + | Home Phone [...] Team Providers + +------+ + | Care Geospatial Specialist Name | Role | Phone | [...] as of this encounter Progress Notes Interface, Inside Steward/Stewardess In - 06/11/2006 3:03 AM PDT [place] [facility] and [place] [address] [place], [place] [address] FAX Department of Orthopaedics, [facility] [id number] November 27, 2001 Kalyan Wu M.D. [facility]-Orthopedics [address] 430 RE: SHELBY GALDAMEZ MR #: [...] the low back several years ago in [place], [place] which she described as showing deteriorating vertebrae at "T11-T12." She has not had any physical therapy for back. She does work out at a gym under the direction of physical therapy in [place]. She would like to start some exercises [...] contact me. Sincerely yours, Vince Krishna M.D. [facility] / [id number] / [id number] / [id number] / [id number] cc: Lloyd Garcia M.D. Orthopedics [address] docume nted in this encounter Plan of Treatment Not on filedocumented as of this encounter Visit Diagnoses Not on filedocumented in this encounter
--- OUTSIDE RECORDS SUMMARY | ~2020-04-27 | XMS | Encounter Summary ---
Demographics + + + | Address | [address] | | | [place] [address] | + + + | Home Phone [...] Providers + +------+ + | Care Staff Nurse Icu Resource Team Name | Role | Phone | + +------+ + | Marta Jenkins BUCKLE STRAP PUNCHER | PCP | | + +------+ + Encounter Details +--------+ + + + + | Date | Type | Department | Care Team | Description | +--------+ + + + + | 11/19/ | Documentati | Digestive Health | Clinic, Surgery | | | 2019 | on | Center at [facility] [address] | | | | | | [address] [facility] | | | | | | for Health and | | | | | | Healing, [address] | | | | | | [place], [place] | | | | | | [address] | | | | | | [phone] | | | +--------+ + + + [...]
--- OUTSIDE RECORDS SUMMARY | ~2020-04-27 | XMS | Encounter Summary ---
Demographics + + + | Address | [address] | | | [place] [address] | + + + | Home Phone [...] Team Providers + +------+ + | Care Education Associate Name | Role | Phone | [...] | | | | Mailcode: [id number] | [place], [place] | | | | | [facility] | [address] | | | | | [facility] [place] | [phone] | | | | | [address] | | | | | | [phone] | | | +--------+ + + + [...]
--- OUTSIDE RECORDS SUMMARY | ~2020-04-27 | XMS | Encounter Summary ---
Demographics + + + | Address | [address] | | | [place] [address] | + + + | Home Phone | | + + + | Preferred Language | Unknown | + + + | Marital Status | | + + + | Pentecostal Affiliation | [id number] | + + + | Race | Unknown | + + + | Ethnic Group | Unknown | + + + Author + + + | Author | [facility] | | | and [place] | + + + | Organization | [facility] | | [...] Providers + +------+ + | Care Pharmacy Order Entry Technician Name | Role | Phone | [...] + + | 03/24/ | Office | [facility] | Xiang Sepulveda, | Back pain, | | 2019 | Visit | [facility] | DO [address] | unspecified back | | | | [address] | [place], [place] | location, | | | | [address] | [id number] | unspecified back | | | | [place], [place] | | pain laterality, | | | | [address] | | unspecified | | | | [phone] | | chronicity (Primary | | | [...] but not limited to phys ical therapy, critical care paramedic, acupuncture, massage therapy, and nutritional health counse [...] Author Status Filed Medication Agreement Antonella Sprague, Store Administrator Active 11/25/2019 10:52 AM Pain Contract- Dr. Sepulveda 11/25/2019 PEG Pain screening tool (Pain, enjoyment, general activity) Total score: (Printable questionnaires in Tajik ) Interpretation of Total Score: PEG scores are used to track changes over time. It should de crease after therapy has begun. Last 4 PEG Scores: No flowsheet data found. Opioid Risk Tool (ORT): Total Score Temp: 36.7 C (98.1 F) Temp Source: Oral Pulse: 114 Resp: 24 BP: 156/85 SpO2: 96 % (From Chronic Pain tab; printable questionnaires in Tajik) Interpretation of Total Score: 0 to 3 [...] situation as her home health worker and water resource consultant feel she requires 24/7 care and may need to be placed in an extended care facility. This wi ll be up to them and her primary care physician I explained. She does have an appointment w [facility] orthopedic surgery next week in [place]. Active range of motion bilateral upper extremities [...] reviewed, listed controlled substances are consistent with [facility] prescriptions and patient reported use. Controlled [...] imited to physical therapy, massage therapy, acupuncture, critical care paramedic, along with jabari mmended psychological counseling, either privately, or in group sessions offered by private care individuals, community services, or hinduism organizations. Appropriate referrals were made at patient [...] and complications with the passage of time. care home use is also associated with depressions, [...] and coordination of care with other health child care lead teacher and monitoring labs results, other test results and imagin g including [facility] and/or [facility] prescription monitoring systems. This document has been created using [employer] Recognition software and Match[employer]. The entry has been reviewed for content and accuracy, but there may still exist "sound alike" vp legal affairs word errors and/or unintended additions and deletions. [...] [place] | | | | | | [id number] | | | | | | | [...]
--- OUTSIDE RECORDS SUMMARY | ~2020-04-27 | XMS | Encounter Summary ---
Demographics + + + | Address | [address] | | | [place] [address] | + + + | Home Phone [...] Team Providers + +------+ + | Care Winder Contort Operator Name | Role | Phone | [...] + + + + | 10/24/ | Drug Abuse Technician | Infectious | [facility] | | | 2010 | | [facility] at [facility] | K, PAXavierC [address] | | | | | [address] | [address] | | | | | Loop Physician's | [place], [place] | | | | | [place], 3rd floor | [address] | | | | | [place], [place] | [phone] | | | | | [address] | | | | | | [phone] | | | +--------+ + + + [...]
--- OUTSIDE RECORDS SUMMARY | ~2020-04-27 | XMS | Encounter Summary ---
Demographics + + + | Address | [address] | | | [place] [address] | + + + | Home Phone [...] + +------+ + | Care Field Crop Technical Officer Name | Role | Phone | [...] as of this encounter Progress Notes Interface, Analysis Reporting Developer In - 08/16/2006 1:10 AM PSTCLINIC DATE: [...] be requiring surgical intervention. Lloyd Garcia M.D. Certification Engineer of Orthopedics and Rehabilitation / [id number] / [id number] / [id number] / cc: Helio Noland M.D. Juan JoseJuan Jose [place], [place] [address]Pnbfftperoxpfe signed by Interface, Analysis Reporting Developer In at 08/16/2006 1: 10 AM PSTdocumented in this encounter Plan of Treatment Not on filedocumented as of this encounter Visit Diagnoses Not on filedocumented in this encounter"
--- OUTSIDE RECORDS SUMMARY | ~2020-04-27 | XMS | Encounter Summary ---
Demographics + + + | Address | [address] | | | [place] [address] | + + + | Home Phone [...] Author + + + | Author | [facility] | + + + | Organization | [facility] | + + + | [...] Team Providers + +------+ + | Care Buyer Liaison Name | Role | Phone | [...] | | | | Mailcode: PV430 | [place], [place] | | | | | [facility] | [address] | | | | | [place], [place] | [phone] | | | | | [address] | | | | | | [phone] | | | +--------+ + + + [...]
--- OUTSIDE RECORDS SUMMARY | ~2020-04-27 | XMS | Encounter Summary ---
Demographics + + + | Address | [address] | | | [place] [address] | + + + | Home Phone [...] Team Providers + +------+ + | Care Pricing Actuary Name | Role | Phone | + [...] | Transcriptions | + + | Interface, Automatic Centrifugal Station Operator In - 02/27/2006 3:05 AM PDT [...] | | Malcom GarciaRT/aceD: 09/14/2003T: 09/15/2003 9:10 [id number] | |bellberna. The proximal greater trochanter fragment [...] |RT/magalie | | | | A | |[id number] | + + documented in this encounter Visit Diagnoses Not on filedocumented in this encounter"
--- OUTSIDE RECORDS SUMMARY | ~2020-04-27 | XMS | Encounter Summary ---
Demographics + + + | Address | [address] | | | [place] [address] | + + + | Home Phone [...] Team Providers + +------+ + | Care Pv Installer Tech Name | Role | Phone | [...]
--- OUTSIDE RECORDS SUMMARY | ~2020-04-27 | XMS | Encounter Summary ---
Demographics + + + | Address | [address] | | | [place] [address] | + + + | Home Phone [...] Team Providers + +------+ + | Care Journeyman Wireman Name | Role | Phone | + +------+ + PCP | Unavailable | + +------+ + Encounter Details +--------+ + + + + | Date | Type | Department | Care Team | Description | +--------+ + + + + | 05/30/ | Hospital | [facility] | Augie Valdivia MD | | | 2011 | Encounter | MED CTR MP INTRA OP | [address], [place] | | | | | [address] | [address] | | | | | [place] | [address] | | | | | [address] | | | | | | [phone] | | | +--------+ + + + [...] [place] | | | | | | [address] | | | | | | | | +--------+---------+ + + + documented as of this encounter Visit Diagnoses Not on filedocumented in this encounter"
--- OUTSIDE RECORDS SUMMARY | ~2020-04-27 | XMS | Encounter Summary ---
Demographics + + + | Address | [address] | | | [place] [address] | + + + | Home Phone [...] Providers + +------+ + | Care Fishing Vessel Operator Name | Role | Phone | [...]
--- OUTSIDE RECORDS SUMMARY | ~2020-04-27 | XMS | Encounter Summary ---
Demographics + + + | Address | [address] | | | [place] [address] | + + + | Home Phone [...] Team Providers + +------+ + | Care Export Coordinator Name | Role | Phone | + +------+ + | Marta Jenkins CONFERENCE PLANNING MANAGER | PCP | | + +------+ [...] [address] | | | | | [place], [place] | [place], [place] | | | | | [address] | [address] | | | | | [phone] | [phone] | | | | | | | [...]
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
--- OUTSIDE RECORDS SUMMARY | ~2020-04-27 | XMS | Encounter Summary ---
Demographics + + + | Address | [address] | | | [place] [address] | + + + | Home Phone [...] Team Providers + +------+ + | Care Stove Carriage Operator Name | Role | Phone | [...] | | | is of hip | [facility] | [address] | | | | | Procedures | Rd | Rd [place], | | | | | CONSULT TO | [place], [place] | [place] [address] | | | | | ORTHOPEDICS | [address] | | | | | | AND [...] Lloyd | | | | | | UMATILMARIAJ | [address] [facility] | | | | | | MEDICAL | [facility] | | | | | | CLINIC [address] | [address] | | | | | | [address] | [place] | | | | | | [place], [place] | [address] | | | | | | [address] | | +--------+--------+ + + + + [...] Pavilion | | | | | | [place], [place] | | | | | | [address] | | | | | | [phone] | | | +--------+---------+ + + + [...] 05/23/2004, for hip pain who returns to [facility] after a right hip injection [...] states, that he recieves a letter from the rehabilitation institute indicating the continued need. She has a [...]
--- OUTSIDE RECORDS SUMMARY | ~2020-04-27 | XMS | Encounter Summary ---
Demographics + + + | Address | [address] | | | [place] [address] | + + + | Home Phone [...] Providers + +------+ + | Care Certified Court Interpreter Name | Role | Phone | + [...] | | | | Mailcode: PV430 | [place], [place] | not done yet | | | | [facility] | [address] | 07-18.) | | | | [place], [place] | [phone] | | | | | [address] | | | | | | [phone] | | | +--------+ + + + [...]
--- OUTSIDE RECORDS SUMMARY | ~2020-04-27 | XMS | Encounter Summary ---
Demographics + + + | Address | [address] | | | [place] [address] | + + + | Home Phone [...] Team Providers + +------+ + | Care Electroencephalograph Technician Name | Role | Phone | [...] | | | [address] | [address] | | | | | Mailcode: PV430 | [place], [place] | | | | | [facility] | [address] | | | | | [place], [place] | [phone] | | | | | [address] | | | | | | [phone] | | | +--------+ + + + [...]
--- OUTSIDE RECORDS SUMMARY | ~2020-04-27 | XMS | Encounter Summary ---
Demographics + + + | Address | [address] | | | [place] [address] | + + + | Home Phone [...] Team Providers + +------+ + | Care Receiving Checker Name | Role | Phone | [...] + + + + | 10/24/ | Cd Reactor Operator Head | Infectious | Carolina Putnam | | | 2010 | | Diseases at [facility] | K, PAXavierC [address] | | | | | [address] | [address] | | | | | Loop Physician's | [place], [place] | | | | | [place], 3rd floor | [address] | | | | | [place], [place] | [phone] | | | | | [address] | | | | | | [phone] | | | +--------+ + + + [...]
--- OUTSIDE RECORDS SUMMARY | ~2020-04-27 | XMS | Encounter Summary ---
Demographics + + + | Address | [address] | | | [place] [address] | + + + | Home Phone [...] Team Providers + +------+ + | Care Suture Gauger Name | Role | Phone | + [...] | | | | | | | [place], | | | | | | | [place] [address] | +--------+--------+ + + + + Encounter Details +--------+---------+ + + + | Date | Type | Department | Care Team | Description | +--------+---------+ + + + | 09/08/ | Office | Radiation Oncology | Kevin Arenas MD | Heterotopic Tissue | | 2007 | Visit | at [facility] [address] | [address] | (Primary Dx) | | | | [address] | [place], [place] | | | | | [place], 4th floor | [address] | | | | | [place], [place] | [phone] | | | | | [address] | | | | | | [phone] | | | +--------+---------+ + + + [...] will treatment her today. KEVIN ARENAS MD [facility] RADIATION MEDICINE [facility] [place] [address] r Miller - 09/08/2008 2:21 PM PST [...] DAVID, bone graft and HO excision for cloth printer masood osteoarthritis, HO formation, and non-union of [...]
--- OUTSIDE RECORDS SUMMARY | ~2020-04-27 | XMS | Encounter Summary ---
Demographics + + + | Address | [address] | | | [place] [address] | + + + | Home Phone [...] Team Providers + +------+ + | Care Bridge Game Director Name | Role | Phone | [...]
--- OUTSIDE RECORDS SUMMARY | ~2020-04-27 | XMS | Encounter Summary ---
Demographics + + + | Address | [address] | | | [place] [address] | + + + | Home Phone [...] Team Providers + +------+ + | Care Telephone Supervisor Name | Role | Phone | [...] | | | | | (sacroiliac) | [facility], | | | | | joint | Rd | 10th Floor | | | | | inflammation | [place], [place] | [place], [place] | | | | | ([facility]) | [address] | [address] | | | | | Procedures | | Phone: | | | | | CT INJ | | [phone] | | | | | SACROILIAC | | Fax: | | | | | JOINT | | [phone] | | | | | W/NEEDLE | [...] | | | | | | Rd [place], | | | | | | | [place] | | | | | | | [address] | | | | | | | Phone: | | | | | | | [phone] | | | | | | | Fax: | | | | | | | [phone] | +--------+--------+ + + + + Encounter [...] | | | | Mailcode: PV430 | [place], [place] | ([facility]) | | | | [facility] | [address] | | | | | [place], [place] | [phone] | | | | | [address] | | | | | | [phone] | | | +--------+---------+ + + + [...] and plan of care. TYRONE COLBY MD [facility] [address] [facility] Mailcode: [id number] [facility] [phone] esfaye Saenz PA-C - 02/20/2010 3:15 PM [...] None. | | | | | | Applied Mathematician: Dr. Moss, | | | | | | resident programs assistant. | | | | | | Paid Search Marketing Strategist: | | | | | | Sue [...] the | | | | | | manager sales support. Humidifier Attendant | | | | | | imaging [...]
--- OUTSIDE RECORDS SUMMARY | ~2020-04-27 | XMS | Encounter Summary ---
Demographics + + + | Address | [address] | | | [place] [address] | + + + | Home Phone [...] Team Providers + +------+ + | Care Solutions Developer Name | Role | Phone | [...] [address] | | | | | | [place], [place] | | | | | | [address] | | | | | | [phone] | | | +--------+---------+ + + + [...] fairly well controlled at this point with [place]. She has been wbat and is overall [...] old female about 3 weeks s/p I&D JAUN DAVID with hardware removal , Progressing well [...]
--- OUTSIDE RECORDS SUMMARY | ~2020-04-27 | XMS | Encounter Summary ---
Demographics + + + | Address | [address] | | | [place] [address] | + + + | Home Phone [...] Team Providers + +------+ + | Care Coagulating Operator Name | Role | Phone | [...] | Transcriptions | + + | Interface, Spiral Machine Operator In - 03/06/2006 1:10 AM PDT Date: | | 08/16/2003Attending Surgeon: Lloyd Garcia M.D.Diver Helper(s): | | Benson Boone M.D.Preoperative Diagnosis:Right [...] cc per Arreaga drain to | | 8-Niuean tubes to 1 median Hemovac suctioncanister.Postoperative Plan:Ancef [...] brought to | | OperatingRoom #6 at [facility] Operating Room suite.She | | was [...] Vicryl mattress sutures andaddition | | of dddquj-ax-wohqq 0 Vicryl. The fascial layer with ihbatattvownnsaij-bm-svdtz 0 | | Vicryl sutures. Fadumo's fascia [...] to | | leaving the room.Lloyd Garcia M.D.Vulcanizer, Orthopedics and | | Rehabilitation / [id number] / [id number] / [id number] / [id number]: 08/16/2003T: | | 08/16/2003cc:Ninfa Guillen M.D.[address] [place] [address] | | | |The posterior superior iliac [...] Vicryl mattress sutures and | |addition of nkwzbr-pq-sxmpc 0 Vicryl. The fascial layer with interrupted | |zvfvve-ia-wwatz 0 Vicryl sutures. Fadumo's fascia was closed [...] | | | |Lloyd Garcia M.D. | |[facility], Orthopedics and Rehabilitation | | | | / | |[id number] / [id number] / 50975 / 83675 | | | | | | | |cc: | | | |Ninfa Guillen M.D. | |[address], | |[place] [address] | + + documented in this encounter Visit Diagnoses Not on filedocumented in this encounter"
--- OUTSIDE RECORDS SUMMARY | ~2020-04-27 | XMS | Encounter Summary ---
Demographics + + + | Address | [address] | | | [place] [address] | + + + | Home Phone [...] Team Providers + +------+ + | Care Sustainable Communities Designer Name | Role | Phone | + +------+ + PCP | Unavailable | + +------+ + Encounter Details +--------+ + + + + | Date | Type | Department | Care Team | Description | +--------+ + + + + | 12/23/ | Cylinder Sander Operator | Orthopaedics at | Gino Baker MD | Osteoarthritis of | | 2006 | | [facility] [address] | [address] | Hip (Primary Dx) | | | | [address] | [address] [place] | | | | | Mailcode: PV430 | [place] [address] | | | | | [facility] | | | | | | [place], [place] | | | | | | [address] | | | | | | [phone] | | | +--------+ + + + [...]
--- OUTSIDE RECORDS SUMMARY | ~2020-04-27 | XMS | Encounter Summary ---
Demographics + + + | Address | [address] | | | [place] [address] | + + + | Home Phone [...] Providers + +------+ + | Care Color Straining Bag Washer Name | Role | Phone | + [...] as of this encounter Progress Notes Interface, Keycase Assembler In - 07/28/2006 5:01 AM PSTCLINIC DATE: [...] from earlier surgical intervention. Lloyd Garcia M.D. Manager Heart Orthopedics and Rehabilitation / [id number] / [id number] / [id number] / cc: Helio Noland M.D. [address], [place] [address]Fhzwysuehcyhqe signed by Interface, Keycase Assembler In at 07/28/2006 5: 01 AM PSTInterface, Keycase Assembler In - 07/28/2006 5:01 AM PSTCLINIC DATE: [...] weeks' time. Malcom Her M.D. / SALEEM [id number] / [id number] / 42229 / 98749 Tdocumented in this encounter Plan of Treatment Not on filedocumented as of this encounter Visit Diagnoses Not on filedocumented in this encounter"
--- OUTSIDE RECORDS SUMMARY | ~2020-04-27 | XMS | Encounter Summary ---
Demographics + + + | Address | [address] | | | [place] [address] | + + + | Home Phone [...] Providers + +------+ + | Care Hand Braille Transcriber Name | Role | Phone | + [...] of this encounter Progress Notes Interface, Aircraft Engine Specialist In - 04/28/2005 6:17 PM PDTClinic Date: [...] presence of her friend and my physician assistant production editor and resident here in the Orthopedic Clinic [...] as soon as possible. Lloyd Garcia M.D. Regulatory Affairs Analyst of Orthopedics and Rehabilitation / [id number] / [id number] / [id number] / [id number] Tdocumented in this encounter Plan of Treatment Not on filedocumented as of this encounter Visit Diagnoses Not on filedocumented in this encounter
--- OUTSIDE RECORDS SUMMARY | ~2020-04-27 | XMS | Encounter Summary ---
Demographics + + + | Address | [address] | | | [place] [address] | + + + | Home Phone [...] Providers + +------+ + | Care Music Director Name | Role | Phone | [...] + | 03/17/ | Office | [facility] | Ladarius Martínez PA | MAMADOU on CPAP (Primary | | 2012 | Visit | SLEEP DISORDER [address] | [address] | Dx) | | | | [address] [place] | [place], [place] | | | | | [place] [address] | [address] | | | | | [phone] | | | +--------+---------+ + + + [...] Ravi obtained from: [facility] [place] pressure is: 9 cm ResMed S9: Pressure: [...] to go to [facility] [place] to get a fitting for her mask that will allow it to connect to her hose properly. I will follow up again in 1 month, sooner prn. Fifteen minutes were spent lbii-dn-maur, wi th the majority of time spent [...] [place] | | | | | | [id number] | | | | | | | | +--------+---------+ + + + documented as of this encounter Visit Diagnoses + + | Diagnosis | + + | MAMADOU on CPAP - Primary Obstructive sleep apnea (adult) (pediatric) | + + documented in this encounter"
--- OUTSIDE RECORDS SUMMARY | ~2020-04-27 | XMS | Encounter Summary ---
Demographics + + + | Address | [address] | | | [place] [address] | + + + | Home Phone [...] Team Providers + +------+ + | Care Inclusion Special Educator Name | Role | Phone | [...] Encounter | Lab at [facility] [address] | [address] [facility] | | | | | [facility] for | [facility] | | | | | Health and Healing, | [place], [place] | | | | | | [address] | | | | | Floor [place], [place] | [phone] | | | | | [address] | | | | | | [phone] | | | +--------+ + + + [...] + + + +---------+ + + | [place]-3 Fatty | Take by mouth. | | [...] MD | | | Dictation initiated: Yue Proter MD 10/02/2018 10:06 AM | | + [...]
--- OUTSIDE RECORDS SUMMARY | ~2020-04-27 | XMS | Encounter Summary ---
Demographics + + + | Address | [address] | | | [place] [address] | + + + | Home Phone [...] Team Providers + +------+ + | Care Voucher Clerk Name | Role | Phone | + +------+ + | Marta Jenkins FOOD BEVERAGE ATTENDANT | PCP | | + +------+ + [...] | Jamie Mailcode: [address] [place], | | | | | [place], [place] | [place] [address] | | | | | [address] | | | | | | [phone] | | | +--------+ + + + [...]
--- OUTSIDE RECORDS SUMMARY | ~2020-04-27 | XMS | Encounter Summary ---
Demographics + + + | Address | [address] | | | [place] [address] | + + + | Home Phone [...] Providers + +------+ + | Care Rn Gyn Name | Role | Phone | + [...] | | [address] | [address] [place], | | | | | Mailcode: PV430 | [place] [address] | | | | | [facility] | | | | | | [place] | | | | | | [address] | | | | | | [phone] | | | +--------+ + + + [...]
--- OUTSIDE RECORDS SUMMARY | ~2020-04-27 | XMS | Encounter Summary ---
Demographics + + + | Address | [address] | | | [place] [address] | + + + | Home Phone [...] Team Providers + +------+ + | Care Renewable Energy Division Manager Name | Role | Phone | + +------+ + | Yuki Pantoja MD | PCP | | + +------+ + Encounter Details +--------+ + + + + | Date | Type | Department | Care Team | Description | +--------+ + + + + | 06/21/ | Director Life Insurance | Orthopaedics at | Kalyan Colby MD | Osteoarthritis of | | 2008 | | [facility] [address] | [address] | Hip (Primary Dx) | | | | [address] | [address] | | | | | Mailcode: PV430 | [place], [place] | | | | | [facility] | [address] | | | | | [place], [place] | [phone] | | | | | [address] | | | | | | [phone] | | | +--------+ + + + [...] X-RAY HIP 2 | Med Rec No: [id number] | | | | | VIEWS | Name: | | | | | RIGHT W/ | SHELBY GALDAMEZ | | | | | PELVIS 1 | Birthday: 1960 | | | | | VIEW | Sex: F | | | | | | Alias:Patient Location: | | | | | | [id number]: Outpatient | | | | | | [...] # | | | | | | [id number]:PELVIS | | | | | | ONE [...]
--- OUTSIDE RECORDS SUMMARY | ~2020-04-27 | XMS | Encounter Summary ---
Demographics + + + | Address | [address] | | | [place] [address] | + + + | Home Phone [...] Team Providers + +------+ + | Care [place] Name | Role | Phone | + [...] | | | unspecified | | Rd [place], | | | | | whether | | [place] | | | | | generalized | | [address] | | | | | or | | Phone: | | | | | localized, | | [phone] | | | | | pelvic | | Fax: | | | | | region and | | [phone] | | | | | thigh Pain [...] | | | | Mailcode: PV430 | [place], [place] | inflammatory | | | | [facility] | [address] | reaction due to | | | | [place], [place] | [phone] | internal joint | | | | [address] | | prosthesis ([facility]); | | | | [phone] | | EE-NO SHOW | +--------+---------+ + [...]
--- OUTSIDE RECORDS SUMMARY | ~2020-04-27 | XMS | Encounter Summary ---
Demographics + + + | Address | [address] | | | [place] [address] | + + + | Home Phone [...] Team Providers + +------+ + | Care Glue Mounter Operator Name | Role | Phone | [...] as of this encounter Progress Notes Interface, Arch Support Maker In - 06/19/2006 1:01 AM PDTCLINIC DATE: [...] ALLERGIES: None. SOCIAL HISTORY: She lives in [facility], and she is currently not working. She [...] the appointment. Her current phone number is [phone]. At this point, we will not schedule her for a followup until we have these other appointments, and then we will have her followup with . Again, we will forward our recommendations to him. Pricilla Metcalf M.D. Kalyan Wu M.D. [facility] / [id number] / [id number] / [id number] / [id number] cc: Lloyd Garcia M.D. [id number] docume nted in this encounter Plan of Treatment Not on filedocumented as of this encounter Visit Diagnoses Not on filedocumented in this encounter"
--- OUTSIDE RECORDS SUMMARY | ~2020-04-27 | XMS | Encounter Summary ---
Demographics + + + | Address | [address] | | | [place] [address] | + + + | Home Phone [...] Team Providers + +------+ + | Care Bulk Intake Worker Name | Role | Phone | [...] Pavilion | | | | | | [place], [place] | | | | | | [address] | | | | | | [phone] | | | +--------+ + + + [...] near | | | | | | [id number] | | | | | | appearance [...] | + +---------+ + + | [facility] DEPARTMENT OF | | | | | RADIOLOGY | | | | + +---------+ + + documented in this encounter Visit Diagnoses Not on filedocumented in this encounter"
--- OUTSIDE RECORDS SUMMARY | ~2020-04-27 | XMS | Encounter Summary ---
Demographics + + + | Address | [address] | | | [place] [address] | + + + | Home Phone [...] Providers + +------+ + | Care Wire Machine Operator Name | Role | Phone [...] 2011 | | GASTROENTEROLOGY | [address], [place] | | | | | [address] | [address] [place], [place] | | | | | [address] [place], [place] | [address] | | | | | [address] | | | | | | [phone] | | | +--------+ + + + [...] pcp and is wonde ring if in [place] can do the procedure. She will call [...] [place] | | | | | | [address] | | | | | | | | +--------+---------+ + + + documented as of this encounter Visit Diagnoses Not on filedocumented in this encounter
--- OUTSIDE RECORDS SUMMARY | ~2020-04-27 | XMS | Encounter Summary ---
Demographics + + + | Address | [address] | | | [place] [address] | + + + | Home Phone [...] Providers + +------+ + | Care Clerk Typist Name | Role | Phone | + [...] | Orthopedics | Diagnoses | Arias, | Arisa, | | | | | | Kalyan Barrientos MD | Kalyan Barrientos MD | | | | | Osteoarthros | [address] | | | | | is, | [address] | [place] | | | | | unspecified | [address] | Rd [place], | | | | | whether | [place], [place] | [place] | | | | | generalized | [address] | [address] | | | | | or | Phone: | Phone: | | | | | localized, | [phone] | [phone] | | | | | pelvic | Fax: | Fax: | | | | | region and | [phone] | [phone] | | | | | thigh | | | | | | | Osteoarthrit | | | | | | | is of Hip | | | | | | | Procedures | | | | | | | PA TOTAL HIP | | | | | | | | | | | | | | ARTHROPLASTY | | | | | | | PA | | | | | | | RECONSTRUC | | | | | | | HIP | | | | | | | SOCKET,RESEC | | | | | | | FEM HEAD | | | | | | | PA REMOVAL | | | | | | | OF ISCHIAL | | | | | | | BURSA PA | | | | | | | [...] Pavilion | | | | | | [place], [place] | | | | | | [address] | | | | | | [phone] | | | +--------+---------+ + + + [...] surgeries scheduled to take place on the dickey at the [facility]: Surgeries scheduled in the [facility] ([address] [place] [address]): registration is located on the 4th floor of [facility] (Day Surgery). Surgeries scheduled in the [facility]: registration is located on the 9th floor. Surgeries scheduled in [facility]: registration is located on the 6th floor. Surgeries scheduled in the [facility]: registration is located i n the [facility] on the first floor. For surgeries scheduled to take place at the [facility]: registration is [...] If you use specialized medical equipment at [facility], please check with your provider before [...] surgeries scheduled to take place on the dickey at the [facility]: Surgeries scheduled in the [facility] ([address] [place] [address]): registration is located on the 4th floor of [facility] (Day Surgery). Surgeries scheduled in the [facility]: registration is located on the 9th floor. Surgeries scheduled in [facility]: registration is located on the 6th floor. Surgeries scheduled in the [facility]: registration is located i n the [facility] on the first floor. For surgeries scheduled to take place at the [facility]: registration is l [...] you use specialized medical [facility], please check with your provider before [...] infection has s calvin been cleared with terminal gauger antibiotics. In this time she has also [...] OF ACTION: see above PARQ: see above. [facility] umeunice in this encounter Plan of [...] Performed At | + + + | [id number] Estimated GFR > 60 mL/min/1.73 sq m if non- | [facility] | | Guyanese [id number] Estimated GFR > 60 mL/min/1.73 sq m if | DEPARTMENT OF | | [place]yanese GFR is estimated using the MDRD equation [...] + + + + | [facility] | [address] | [place] [address] | | | PATHOLOGY | [address] | | | + + + + + | [facility] | [address] | [place] [address] | | | PATHOLOGY | [address] [...] + + + + | [facility] | [facility] | [place] [address] | | | PATHOLOGY | [address] | | | + + + + + | [facility] | [address] [facility] | [place] [address] | | | PATHOLOGY | [address] [...] | + + + + + | [facility] DEPARTMENT OF | [facility] | [place] [address] | | | PATHOLOGY | [address] | | | + + + + + | [facility] DEPARTMENT OF | [facility] | [place] [address] | | | PATHOLOGY | [address] [...] + + + + | PRODUCT | [id number] | | [facility] | | | UNIT [...] + + + + | [facility] | [address] [facility] | [place] [address] | | | PATHOLOGY | [address] | | | + + + + + | [facility] | [address] [place] [address] | [place] [address] | | | PATHOLOGY | [address] | | | + + + + + documented in this encounter Visit Diagnoses + + | Diagnosis | + + | Other specified pre-operative examination - Primary | + + documented in this encounter
--- OUTSIDE RECORDS SUMMARY | ~2020-04-27 | XMS | Encounter Summary ---
Demographics + + + | Address | [address] | | | [place] [address] | + + + | Home Phone [...] Team Providers + +------+ + | Care Culinary Manager Name | Role | Phone | [...] Pavilion | | | | | | [place], [place] | | | | | | [address] | | | | | | [phone] | | | +--------+ + + + [...] | + +---------+ + + | [facility] DEPARTMENT OF | | | | | RADIOLOGY | | | | + +---------+ + + documented in this encounter Visit Diagnoses Not on filedocumented in this encounter"
--- OUTSIDE RECORDS SUMMARY | ~2020-04-27 | XMS | Encounter Summary ---
Demographics + + + | Address | [address] | | | [place] [address] | + + + | Home Phone [...] Providers + +------+ + | Care Director Sales And Trade Marketing Name | Role | Phone | [...] as of this encounter Discharge Summaries Interface, Waiter/Waitress First Class In 04/28/2005 5:10 PM PDTAdmission Date: 09/25/2003 [...]
--- OUTSIDE RECORDS SUMMARY | ~2020-04-27 | XMS | Encounter Summary ---
Demographics + + + | Address | [address] | | | [place] [address] | + + + | Home Phone [...] Team Providers + +------+ + | Care Distribution Operations Manager Name | Role | Phone [...] as of this encounter Progress Notes Interface, Roentgenologist In - 07/18/2006 3:04 AM PDTCLINIC DATE: [...] further treatment options. Brigette Lim P.A.-C / [id number] / [id number] / [id number] / Tdocumented in this encounter Plan of Treatment Not on filedocumented as of this encounter Visit Diagnoses Not on filedocumented in this encounter"
--- OUTSIDE RECORDS SUMMARY | ~2020-04-27 | XMS | Encounter Summary ---
Demographics + + + | Address | [address] | | | [place] [address] | + + + | Home Phone [...] Team Providers + +------+ + | Care Lost And Found Clerk Name | Role | Phone | [...] | | | | | | | [place], | | | | | | | [place] [address] | +--------+--------+ + + + + Encounter Details +--------+---------+ + + + | Date | Type | Department | Care Team | Description | +--------+---------+ + + + | 09/08/ | Office | Radiation Oncology | Kevin Arenas MD | Heterotopic Tissue | | 2007 | Visit | at [facility] [address] | [address] | (Primary Dx) | | | | [address] | [place], [place] | | | | | [place], 4th floor | [address] | | | | | [place], [place] | [phone] | | | | | [address] | | | | | | [phone] | | | +--------+---------+ + + + [...] will treatment her today. KEVIN ARENAS MD [facility] RADIATION MEDICINE [facility] [place] [address] r Miller - 09/08/2008 2:21 PM PST [...] DAVID, bone graft and HO excision for outreach assistant masood osteoarthritis, HO formation, and non-union of [...]
--- OUTSIDE RECORDS SUMMARY | ~2020-04-27 | XMS | Encounter Summary ---
Demographics + + + | Address | [address] | | | [place] [address] | + + + | Home Phone [...] Providers + +------+ + | Care Materials Tech Name | Role | Phone | [...] Pavilion | | | | | | [place], [place] | | | | | | [address] | | | | | | [phone] | | | +--------+ + + + [...] | AB, IGM | Test performed by [place] | | | | | | [facility] | | | | | | [email or web address]. | | | | + + + + + + + + | Specimen | + + | | + + + + + + + | Performing | Address | City/State/Zipcode | Phone Number | | Organization | | | | + + + + + | [facility] | [address] | [place] [address] | | | LABORATORY | | | [...] by | | | | | | [facility] | | | | | | [facility]. | | | | + + + + + + + + | Specimen | + + | | + + + + + + + | Performing | Address | City/State/Zipcode | Phone Number | | Organization | | | | + + + + + | [facility] | [address] | [place] [address] | | | LABORATORY | | | [...] + + + + + | [facility] | [address] | [place] [address] | | | LABORATORY | | | [...] | AB TOTAL | Test performed by [place] | | | | | | [facility] | | | | | [...] + + + + + | [facility] | [address] | [place] [address] | | | LABORATORY | | | [...] | + + + + + | [facility] | [address] | [place] [address] | | | PATHOLOGY | [address] | | | + + + + + | [facility] | [address] | [place] [address] | | | PATHOLOGY | [address] [...] [facility] DEPARTMENT [facility] | [address] | [place] [address] | | | PATHOLOGY | [address] | | | + + + + + | [place] DEPARTMENT OF | [address] | [place] [address] | | | PATHOLOGY | [address] [...] | + + + + + | [facility] | [facility] | [place] [address] | | | PATHOLOGY | [address] | | | + + + + + | [facility] | [facility] | [place] [address] | | | PATHOLOGY | [address] [...] OF | [address] | [place] [address] | | | PATHOLOGY | [address] | | | + + + + + | [place] DEPARTMENT OF | [address] | [place] [address] | | | PATHOLOGY | [address] [...] DEPARTMENT OF | [address] | [place] [address] | | | PATHOLOGY | [address] | | | + + + + + | [facility] DEPARTMENT OF | [address] | [place] [address] | | | PATHOLOGY | [address] [...] DEPARTMENT OF | [address] | [place] [address] | | | PATHOLOGY | [address] | | | + + + + + | [facility] | [address] | [place] [address] | | | PATHOLOGY | [address] [...] + + + + + | [facility] | [address] | [place] [address] | | | LABORATORY | | | [...] | [address] | [place] [address] | | | PATHOLOGY | [address] | | | + + + + + | [place] DEPARTMENT OF | [address] | [place] [address] | | | PATHOLOGY | [address] [...] | [address] | [place] [address] | | | PATHOLOGY | [address] | | | + + + + + | [facility] DEPARTMENT OF | [address] | [place] [address] | | | PATHOLOGY | [...] + + + + | PRODUCT | [id number] | | [facility] | | | UNIT [...] | + + + + + | [facility] | [address] [facility] | [place] [address] | | | PATHOLOGY | [address] | | | + + + + + | [facility] | [address] [place] [address] | [place] [address] | | | PATHOLOGY | [address] [...] + + + + | PRODUCT | [id number] | | [facility] | | | UNIT [...] [facility] DEPARTMENT OF | [address] | [place] [address] | | | PATHOLOGY | [address] | | | + + + + + | [facility] DEPARTMENT OF | [address] | [place] [address] | | | PATHOLOGY | [address] [...] OF | [address] | [place] [address] | | | PATHOLOGY | [address] | | | + + + + + | [facility] | [address] | [place] [address] | | | PATHOLOGY | [address] [...] | | | | | available on [employer] and | | | | | | [...] + + + + + | [facility] | [address] | [place] [address] | | | LAB-MICRO | | | [...] + + + + + | [facility] | [address] | [place] [address] | | | LAB-MICRO | | | [...] + + + + + | [facility] | [address] | [place] [address] | | | LAB-MICRO | | | | + + + + + documented in this encounter Visit Diagnoses Not on filedocumented in this encounter"
--- OUTSIDE RECORDS SUMMARY | ~2020-04-27 | XMS | Encounter Summary ---
Demographics + + + | Address | [address] | | | [place] [address] | + + + | Home Phone [...] Providers + +------+ + | Care Certified Low Vision Therapist Name | Role | Phone | [...] | | Karen Del Rosario NP | [facility] [address] | | | | | TRANSTHORACI | [address] | | | | | C | [address] | [address] | | | | | ECHOCARDIOGR | [address] | [place] | | | | | AM, ADULT | [place], [place] | [facility] | | | | | | [address] | floor | | | | | | | [place], [place] | | | | | | | [address] | | | | | | | Phone: | | | | | | | [phone] | +--------+--------+ + + + + Diagnostic [...] | | | X-RAY | Karen E, CRANK HAND | [address] | | | | | ASPIRATION | [address] | [address] | | | | | OR INJECTION | [facility] | [address] | | | | | MAJOR JOINT | Rd | Health and | | | | | W/NEEDLE | [place], [place] | Healing, | | | | | PLCMT | [address] | Building [address], | | | | | | | 3rd Floor | | | | | | | [place], [place] | | | | | | | [address] | | | | | | | Phone: | | | | | | | [phone] | | | | | | | Fax: | | | | | | | [phone] | +--------+--------+ + + + + Reason [...] | | | | | | | [address] | | | | | | | [address] | | | | | | | Jamie [facility] | | | | | | | Hospital | | | | | | | [place], [place] | | | | | | | [address] | | | | | | | Phone: | | | | | | | [phone] | +--------+--------+ + + + + Encounter [...] | | | | [id number] | [address] | | | 10/23/ | | Denaliasmita Vanegason | [place], [place] | | | 2010 | | (MNP/OLD [facility]) | [address] | | | | | [place], [place] | [phone] | | | | | [address] | | | | | | | Jillian Bee MD | | | | | | [address] | | | | | | [address] [place], | | | | | | [place] [address] | | | | | | [phone] | | | | | | | | | | | | Tisha Figueroa FNP | | | | | | [address] | | | | | | [address] [place], | | | | | | [place] [address] | | | | | | [phone] | | | | | | | | | | | | Rustam Duenas MD | | | | | | [address] | | | | | | [address] [place], | | | | | | [place] [address] | | | | | | [phone] | | | | | | | | | | | | Benson Cooper MD | | | | | | [address] [place] | | | | | | [address] [place], [place] | | | | | | [address] | | | | | | | | | | | | Kalyan Arias MD | | | | | | [address] | | | | | | [address] [facility], | | | | | | [place] [address] | | | | | | [phone] | | | | | | | [...] might be different f rom the original. [facility] DEPART[facility] OF ORTHOPAEDICS & REHABILITATION INPATIENT HOSPITAL DISCHARGE SUMMARY & INTERDISCIPLINARY INSTRUCTIONS Patient: Chastity Galdamez CSN: [id number] Admission Date: 10/12/2010 Discharge Date: 10/22/2010 Attending Physician: Kalyan Arias MD PCP: Travis Cruz MD Service: [facility] Orthopaedics & Rehabilitation Diagnoses Principal Final Diagnosis: [...] WBAT Discharge POLST completed No Destination: Destination: Detention Facility Condition on Discharge Good Discharge Follow Up Provider and Clinic: Tesfaye Saenz, Orthopaedic Surgery . Appointment: Please call clinic to make appointment for 2 weeks after your surgery for sut ure/staple removal and wound check. Call [phone] to arrange appointment date and time. Outpatient antibiotics: [facility] (for outpatient antibiotics). -While on outpatient antibiotics, weekly CBC/diff, CMP, ESR, & CRP should be checked, with results faxed to Dr. Teresa or Elvia SPENCE at [facility] clinic (fax #[phone]). Current Discharge Medication List START taking these [...] W-FE,OTHER MIN (CENTRUM ORAL) Take by mouth. Longview-3 Fatty Acids-Vitamin E (FISH OIL) 1,000 mg [...] administration instructions. - Call orthopedic clinic at [phone] if any persistent, localized swelling that does [...] and ask for the orthopaedic surgery resident appraiser personal property. Additional postop instructions/ What to expect: -Apply [...] feel that you will need more, call [phone] during business hours in order to get a new prescription. Please allow 48 hours for re fills to be processed. - Schedule II narcotics can NOT be called in to a pharmacy. Please arrange for someone to cotton picking machine operator your prescription or allow additional time [...] 2 weeks (or as previously scheduled). Call [phone] to confirm or schedul e this appointment. [...] Condition on Discharge: Improved Discharging Patient To: Detention Facility Date and Time of Discharge Summary [...] + + + +---------+ + + | Longview-3 Fatty | Take by mouth. | | [...] 11 Date: 10/23/2010 Patient: CHASTITY Osei TALLY [id number] Interval Hx: Afebrile. Wants to go home. [...] she may arrange timely follow up [facility]. While o n outpatient antibiotics, weekly CBC/diff, CMP, ESR, & CRP should be checked, with results f axed to Dr. Teresa or Elvia SPENCE at [facility] (fax #[phone]). -Dispo plan: pt requires 3 days of flagyl treatment for C. Diff before discharge to prison facility. D/C to prison facility today Samuel Montaño MD - 10/22/2010 7:24 AM PST Ortho Progress Note Hospital Day: 10 Date: 10/22/2010 Author: SAMUEL BOWEN MD Patient: CHASTITY Osei TALLY [id number] Interval Hx: Afebrile. WBC up yesterday and [...] Dr. Teresa or Elvia Putnam PA at [facility] (fax #[phone]). -Dispo plan: pt requires 3 days of flagyl treatment for C. Diff before discharge to [facility] ed nursing facility. Possible D/C to prison facility today Samuel Montaño MD - 10/21/2010 7:16 AM PST Ortho Progress Note Hospital Day: 9 Date: 10/21/2010 Author: SAMUEL BOWEN MD Patient: CHASTITY Osei TALLY [id number] Interval Hx: Afebrile overnight. Comfortable and without [...] Recent Labs Basename 10/21/10 0344 10/20/10 0644 10/20/10331 NA 134 135 134 K 3.7 4.1 3.9 CL 100 98 97 BICARB 29 30* 31* BUN 9 11 10 CR 0.57* 0.65 0.59* GLU 206* 131* 139* CA 8.4* 8.5* 8.3* MG -- -- -- PO4 -- -- -- Recent Labs Basename 10/21/10 03410/20/10 0644 10/20/10 0332 WBC 15.1* 12.6* 13.7* [...] Dr. Teresa or Elvia Putnam PA at [facility] (fax #[phone]). -Dispo plan: pt requires 3 days of flagyl treatment for C. Diff before discharge to skill ed nursing facility. Plan to D/C to prison facility on Saturday10/22/10. Lucero Petersen M D [...] care for this patient. LUCERO KNOX MD [address] Clinical Hospitalist Service [facility] EPIC DEPARTMENT: Hosp ([facility])- [id number] Place of Service: IP - [id number] [facility] [phone] CPT: 54404 Subsequent Visit Exp Prob Foc/Mod Complexity 25 min I spent 25 minutes hyma-yc-erdk with this patient of which greater than [...] clinic visit in 2 weeks after discharge. Myyossi will call to schedule appointment after patient is discharged. Please notify OPAT clinic [id number] re: discharge date, where patient is going (i.e. home, SNF ) and home IV provider if applicable. [facility] Department of Infectious Disease Outpatient IV Antibiotic Therapy Clinic (OPAT) Pager ID: [phone] [facility] [address] Mail Code F704 [place] [address] OPAT teaching note: Education and training for [...] PCP . I gave the patient my [facility] business card, and let them know that our clinical trial associate, Tonja Keller, will be contacting them after discharge to make their first [facility] follow-up appointment. I explained that labs [...] from antibiotics occur, we will ask the [facility] infusion agency to alter the dose of antibiotics, or even change the antibiotics. I expla ined that we will communicate patient's progress and plan with PCP, surgeon, and the home in [place]. I reviewed the possible complications PICC lines [...] unable to contact the IV company or [facility], then to present to the ED. I verified that the patient has a primary care provider, and that they will follow-up with them following this hospitalization in regards to other medical issues such as chronic pain, diabetes, or high blood pressure for which we do not provide any care. I provided the patient with the [facility] welcome letter that reiterates the above teaching. I spent 25 minutes in education and training in patient self management for IV antibiotic a nd PICC line use with greater than 50% spent on counseling and/or coordination of care. [facility] DEPARTMENT: IDC INFECT DIS CONSULT - [phone] Place of Service: Inpatient Date of Service: 10/20/2010 CSN: [id number] Suggested Level of Care: 17291- Subsequent hosp care, 25 min Javier Bunn [...] to Dr. Teresa or Elvia SPENCE at [facility] (fax #[phone]). -Please ensure there is a baseline CBC, CMP, ESR, and CRP prior to discharge.--ordered tod ay -Dispo plan: pt requires 3 days of flagyl treatment for C. Diff before discharge to [facility]. Plan to D/C to prison facility on Saturday10/22/10. Lucero Petersen MD - [...] (pt does not want insulin coverage) (10/18/10 3400) Lab Results Component Value Date INR 1.07 [...] Prophylaxis: Per primary team. LUCERO KNOX MD Application Architect Managertub operator Clinical Hospitalist Service [facility] Medicine Department of Medicine [facility] DEPARTMENT: Hosp ([facility])- [phone] Place of Service: - [address] Modifiers:GC Resident Involved: No CPT: 69231 Subsequent Visit Exp Prob Foc/Mod Complexity 25 min I spent 25 minutes pfgv-tk-toin with this patient of which greater than [...] Intake/Output Summary (Last 24 hours) at 10/19/10 0685 Last data filed at 10/19/10 0422 Gross [...] Prophylaxis: Per primary team. LUCERO KNOX MD Application Architect Managertub operator Clinical Hospitalist Service Division of Hospital Medicine Department of Medicine [facility] DEPARTMENT: Hosp ([facility])- [phone] Place of Service: Modifiers:GC Resident Involved: No CPT: 21221 Subsequent Visit Exp Prob Foc/Mod Complexity 25 min I spent 25 minutes vaqb-td-ykjn with this patient of which greater than [...] -Dispo plan: pending infectious disease recommendations. Lucero ePtersen MD - 10/17/2010 6:25 PM PST HOSPITALIST [...] (10/16/102111) CBG Intervention: (Pt refused CBG) (10/17/10 2877) Lab Results Component Value Date INR 1.07 [...] as well as aspirate LUCERO KNOX MD Application Architect Managertub operator Clinical Hospitalist Service [facility] Medicine Department of Medicine [facility] DEPARTMENT: Hosp ([facility])- [phone] Place of Service: IP - [id number] Modifiers:GC Resident Involved: No CPT: 10173 Subsequent Visit Detailed/High complexity 35 min I spent 40 minutes pzfg-rs-kvpo with this patient of which greater than [...] Cohen MD - 10/16/2010 9:36 PM PST [facility] ORTHOPAEDIC SURGERY POST OPERATIVE CHECK IDENTIFICATION: Patient: [...] consult. WBAT BLE xrays Jillian Farfan MD [facility] [place] Department of Orthopaedics & Rehabilitation [address] [facility] Mail Code: OP31 Amari TAMEZ [id number] [email or web address] Pager: [phone] The above was formulated both independently and [...] immobile. Wearing Priscilla Hose. DAVID KNIGHT MD [facility] 6A Application Architect Managertub operator Clinical Hospitalist Service [facility] EPIC DEPARTMENT: Hosp ([facility])- [id number] Place of Service: IP - [address] [facility] [phone] Modifiers:GC Resident Involved: No Service: Ortho Suggested CPT: 68009 Subsequent Visit Exp Prob Foc/Mod Complexity 25 min I spent more than 30 minutes sewp-hx-tfhd with the patient of which greater than 50% was sp ent co-ordinating care acoreji, David Evangelista MD - 10/15/2010 7:57 AM PST CLINICAL HOSPITALIST SERVICE ([facility])-PROGRESS NOTE HOSPITAL DAY: 3 Author: DAVID KNIGHT [...] she is quite immobile. DAVID KNIGHT MD [address] Application Architect Managertub operator Clinical Hospitalist Service [facility] [place] EPIC DEPARTMENT: Hosp ([facility])- [phone] Place of Service: - [id number] [facility] [phone] Modifiers:GC Resident Involved: No Service: Primary Suggested CPT: 53261 Subsequent Visit Detailed/High complexity 35 min I spent more than 35 minutes vfov-jq-zifo with the patient of which greater than [...] + + + | IP CONSULT TO [facility] | Routin | 10/19/2010 | | Results [...] | + +--------+ + + + | ANNE, WITH | Urgent | 10/14/2010 | | [...] | + +--------+ + + + | KADEN SEBASTIAN ONLY | Urgent | 10/13/2010 | | [...] | + + | Sophy Faculty - 10/27/2010 8:38 AM PST | [...] [facility] | [address] | [place], [place] | | | THERAPY | [address] | [address] | | + + + + + [...] + + | * Corrected 10/23/10 06:42: PABLONEL COMMENTS, prev report: Slide | [facility] | | review pending. | DEPARTMENT OF | | | PATHOLOGY | + + + + + + + + | Performing | Address | City/State/Zipcode | Phone Number | | Organization | | | | + + + + + | [facility] DEPARTMENT | [address] | [place] [address] | | | PATHOLOGY | [address] [...] DEPARTMENT OF | [address] | [place] [address] | | | PATHOLOGY | [address] [...] 06:42: RAHUL COMMENTS, prev report: Slide | [facility]ON | | review pending. | DEPARTMENT OF | | | PATHOLOGY | + + + + + + + + | Performing | Address | City/State/Zipcode | Phone Number | | Organization | | | | + + + + + | [facility] DEPARTMENT | [address] | [place] [address] | | | PATHOLOGY | [address] [...] [facility] | [address] | [place], [place] | | | THERAPY | [facility] | [address] | | + + + + + [...] + + | [facility] | [address] | [place], [place] | | | SUPRIYA POINT OF CARE | [address] | [address] | | | TESTS | | | [...] [facility] DEPARTMENT | [address] | [place] [address] | | | PATHOLOGY | [address] [...] (H) | 60 - 99 mg/dL | [facility] | | | PLASMA | | | [...] DEPARTMENT OF | [address] | [place] [address] | | | PATHOLOGY | [address] [...] [facility] DEPARTMENT | [address] [facility] | [place] [address] | | | PATHOLOGY | [address] [...] + + + | [facility] | [address] | [place], [place] | | | THERAPY | [address] | [address] | | + + + + + [...] 05:44: RAHUL COMMENTS, prev report: Slide | [facility] | | review pending. | DEPARTMENT OF | | | PATHOLOGY | + + + + + + + + | Performing | Address | City/State/Zipcode | Phone Number | | Organization | | | | + + + + + | [facility] DEPARTMENT OF | [address] | [place] [address] | | | PATHOLOGY | [address] [...] | + + + + + | [facility] [place] | [address] | [place] [address] | | | PATHOLOGY | [address] [...] + + | [facility] DEPARTMENT OF | [address] | [place] [address] | | | PATHOLOGY | [address] [...] Bunch, | | | | | | REINFORCING METAL WORKER | | | | | | | | | | | | | | | | | | | | | | | | | | | | | |Electronically Signed by: Angelo Bunch REINFORCING METAL WORKER | | | | + + + + +-------- ------+ + + | Specimen | + + | | + + + + + + + | Performing | Address | City/State/Zipcode | Phone Number | | Organization | | | | + + + + + | [facility] | [address] | [place], [place] | | | THERAPY | [address] | [address] | | + + + + + [...] | [facility] | [address] [facility] | [place], [place] | | | THERAPY | [facility] | [address] | | + + + + + [...] [facility] | [address] | [place], [place] | | | THERAPY | [address] | [address] | | + + + + + [...] effective 10/26/08 | [facility] | | RLB ([facility] [facility] [address] [facility]) Stacy | REN[address] | | [place] [address] [facility] | LABORATORY | | [place] [address] | | + + + + + + + + | Performing | Address | City/State/Zipcode | Phone Number | | Organization | | | | + + + + + | [facility] | [address] | [place] [address] | | | LABORATORY | | | [...] DEPARTMENT OF | [address] | [place] [address] | | | PATHOLOGY | [address] [...] [facility] | [address] | [place] [address] | | | PATHOLOGY | [address] | | | + + + + + SEDIMENTATION RATE (10/20/2010 6:44 AM PST) + +---------+ + + + | Component | Value | Ref Range | Performed | Pathologist | | | | | At | Signature | + +---------+ + + + | SEDIMENTATI | 108 (H) | <31 mm/hr | [facility] | | | ON RATE | [...] | + + + + + | [facility] [place] | [address] | [place] [address] | | | PATHOLOGY | [address] [...] + + + + + | [facility] | [address] | [place] [address] | | | LABORATORY | | | [...] [facility] DE[facility] | [address] | [place] [address] | | | PATHOLOGY | [address] | | | + + + + + RESP CARE THERAPY (10/20/2010 4:59 AM PST) + + + + +------ --------+ | Component | Value | Ref Range | Performed | Patho logist | | | | | At | Signa molina | + + + + +------ --------+ | RESPIRATORY | Oxygen device on | | [facility] | | | CARE | standby, nasal canula. | | RESPIRATORY | | | | Electronically | | THERAPY | | | | Signed by: Cha Miles, | | | | | | REINFORCING METAL WORKER | | | | | | | [...] [facility] | [address] | [place], [place] | | | THERAPY | [address] | [address] | | + + + + + [...] | + + + + + | [facility] DEPARTMENT OF | [address] | [place] [address] | | | PATHOLOGY | [address] [...] | + + + + + | [facility] [place] [place] | [address] | [place] [address] | | | PATHOLOGY | [address] [...] | + + + + + | [facility] [place] [place] | [address] | [place] [address] | | | PATHOLOGY | [address] | | | + + + + + IP CONSULT TO [facility] TEAM (10/19/2010 10:48 AM PST) + + [...] Long 1cm Trimmed Lot # (or Sticker): [id number] INSERTION SITE: | | | - Cephalic [...] CXR [place]: [place] [id number] | | | Assisted by: na | [...] CATHETERProduct Name: BoogieConstruction: | | Single4 Fr60cm [id number] TrimmedLot # (or Sticker): [id number] SITE: - | | CephalicLeftLocal anesthetic used: [...] by CXRPlaced by: Anabella Ramirez RN IVT [id number] | | by: na | |PICC CATHETER | |Product Name: Boogie | |Construction: Single | |4 Fr | |60cm Long | |1cm Trimmed | |Lot # (or Sticker): [id number] | | | |INSERTION SITE: - Cephalic [...] | |Placed by: [place] [id number] | |Assisted by: na | + + X-RAY PORTABLE CHEST 1 VIEW (10/19/2010 10:45 AM PST) + + + + + + | Component | Value | Ref Range | Performed | Pathologist | | | | | At | Signature | + + + + + + | X-RAY | STUDY: [place] CHEST 1 VIEW | | | | [...] ROBERT | | | | | | Link ALNAwer: | | | | | | ELEAZAR ENGLAND M.D. STATUS | | | | | | FINAL / Dr. BUSH | | | | | | SHAVON PENDING | | | | | | [...] Guardado, | | | | | | REINFORCING METAL WORKER | | | | + + + + + + + + | Specimen | + + | | + + + + + + + | Performing | Address | City/State/Zipcode | Phone Number | | Organization | | | | + + + + + | [facility] | [address] | [place], [place] | | | THERAPY | [address] | [address] | | + + + + + [...] | + + + + + | [facility] [place] [place] | [address] | [place] [address] | | | PATHOLOGY | [address] [...] DEPARTMENT OF | [address] | [place] [address] | | | PATHOLOGY | [address] [...] | + + + + + | [facility] [place] [place] | [address] | [place] [address] | | | PATHOLOGY | [address] [...] [facility] | [address] | [place], [place] | | | THERAPY | [address] | [address] | | + + + + + [...] [facility] | [address] | [place], [place] | | | SUPRIYA POINT OF CARE | [address] | [address] | | | TESTS | | | [...] + + | CALLED TO | Shannon M on 10A | | [facility] | | [...] DEPARTMENT OF | [address] | [place] [address] | | | PATHOLOGY | [address] [...] At | + + + | RLB ([facility]) Regis | REGIS | | [place] [address] [address] [facility] | [facility] | | [place] [address] | LAB-MICRO | + + + + + + + + | Performing | Address | City/State/Zipcode | Phone Number | | Organization | | | | + + + + + | [facility] | [address] [facility] | [place] [address] | | | LAB-MICRO | | | [...] [facility] DEPARTMENT | [address] | [place] [address] | | | PATHOLOGY | [address] [...] (H) | 60 - 99 mg/dL | [facility] - | | | GLUCOSE, | | [...] [facility] | [address] | [place], [place] | | | JADA EPPS OF CARE | [address] | [address] | | | TESTS | | | [...] [facility] | [address] | [place], [place] | | | JADA EPPS OF CARE | [address] | [address] | | | TESTS | | | [...] [facility] DE[facility] | [address] | [place] [address] | | | PATHOLOGY | [address] [...] | + + + + + | [facility] [place] [place] | [address] | [place] [address] | | | PATHOLOGY | [address] [...] | + + + + + | [facility] [place] [place] | [address] | [place] [address] | | | PATHOLOGY | [address] [...] | [facility] | [address] [facility] | [place], [place] | | | THERAPY | [address] | [address] | | + + + + + [...] [facility] | [address] | [place], [place] | | | THERAPY | [address] | [address] | | + + + + + [...] [facility] | [address] | [place], [place] | | | THERAPY | [address] | [address] | | + + + + + [...] | | | | | | RAMA NASHevlindawer: | | | | | | CHUYITA [...] RLB ([address] [facility]) | | | [facility] [address] | | | [place] [address] | | + + + + + + + + | Performing | Address | City/State/Zipcode | Phone Number | | Organization | | | | + + + + + | [facility] | [address] | [place] [address] | | | LABORATORY | | | | + + + + + RESP CARE THERAPY (10/17/2010 1:51 AM PST) + + + + +-------- ------+ | Component | Value | Ref Range | Performed | Elijaholo gist | | | | | At [...] [facility] | [address] | [place], [place] | | | THERAPY | [address] | [address] | | + + + + + [...] [facility] | [address] | [place], [place] | | | THERAPY | [address] | [address] | | + + + + + [...] [facility] | [address] | [place], [place] | | | JADA EPPS OF [facility] | [address] | [address] | | | TESTS | | | [...] [facility] | [address] | [place], [place] | | | JADA EPPS OF CARE | [address] | [address] | | | TESTS | | | [...] + | [facility] | [address] | [place], [place] | | | SUPRIYA U[facility]ON OF [facility] | [address] | [address] | | | TESTS | | | [...] [facility] | [address] | [place], [place] | | | THERAPY | [address] | [address] | | + + + + + [...] | + + + + + | [facility] [place] [place] | [address] | [place] [address] | | | PATHOLOGY | [address] [...] TO | Celine SJuan Jose on 10A @15:00 on | | [facility] | | [...] | + + + + + | [facility] | [address] | [place] [address] | | | PATHOLOGY | [address] [...] | + + + + + | [facility] DEPARTMENT OF | [address] | [place] [address] | | | PATHOLOGY | [address] [...] Celine Sandy on 10A on | | [facility] | | | | 10/17/10 @ 15:00 [...] [facility] DE[facility] | [address] | [place] [address] | | | PATHOLOGY | [address] [...] Celine Sandy on 10A on | | [facility] | | | | 10/17/10 @ 15:00 [...] [facility] | [address] | [place] [address] | | | PATHOLOGY | [address] [...] + + + | [facility] | [address] | [place] [address] | | | LAB-MICRO | | | [...] + + + | [facility] | [address] | [place] [address] | | | LAB-MICRO | | | [...] Lab) | | | | | | [facility] | | | | | | [address] | | [address] | | | | | | [place] [address] | | | | + + + + + + + + | Specimen | + + | | + + + + + + + | Performing | Address | City/State/Zipcode | Phone Number | | Organization | | | | + + + + + | [facility] | [address] | [place] [address] | | | LAB-MICRO | | | [...] + + + | [facility] | [address] | [place] [address] | | | LAB-MICRO | | | [...] Lab) | | | | | | [facility] | | | | | | [address] [place] | | | | [address] | | | | | | [place] [address] | | | | + + + + + + + + | Specimen | + + | | + + + + + + + | Performing | Address | City/State/Zipcode | Phone Number | | Organization | | | | + + + + + | [facility] | [address] | [place] [address] | | | LAB-MICRO | | | [...] | Site 5, right hip, | | SATCY | | | SITE | surgical, hold [...] + + + + + | [facility] | [address] | [place] [address] | | | LAB-MICRO | | | [...] collected | | | | | | 1-17-2011 at 08:40 for | | | | [...] Permanente | | | | | | [address] | | | | | | [place], | | | | | | [place] [address] | | | | + + + + + + + + | Specimen | + + | | + + + + + + + | Performing | Address | City/State/Zipcode | Phone Number | | Organization | | | | + + + + + | [facility] | [address] | [place] [address] | | | LAB-MICRO | | | [...] Lab) | | | | | | [facility] | | | | | | [address] | | [address] | | | | | | [place] [address] | | | | + + + + + + + + | Specimen | + + | | + + + + + + + | Performing | Address | City/State/Zipcode | Phone Number | | Organization | | | | + + + + + | [facility] | [address] | [place] [address] | | | LAB-MICRO | | | [...] + + + | [facility] | [address] | [place] [address] | | | LAB-MICRO | | | [...] + + + | [facility] | [address] | [place] [address] | | | LAB-MICRO | | | [...] Lab) | | | | | | [facility] | | | | | | [address] | | | [address] | | | | | | [place] [address] | | | | + + + + + + + + | Specimen | + + | | + + + + + + + | Performing | Address | City/State/Zipcode | Phone Number | | Organization | | | | + + + + + | [facility] | [address] | [place] [address] | | | LAB-MICRO | | | [...] + + + | [facility] | [address] | [place] [address] | | | LAB-MICRO | | | [...] + + + | [facility] | [address] [place] [address] | [place] [address] | | | LAB-MICRO | | | [...] Permanente | | | | | | [address] | | | | | | [place], | | | | | | [place] [address] | | | | + + + + + + + + | Specimen | + + | | + + + + + + + | Performing | Address | City/State/Zipcode | Phone Number | | Organization | | | | + + + + + | [facility] | [address] | [place] [address] | | | LAB-MICRO | | | [...] + + + | [facility] | [address] [place] [address] | [place] [address] | | | LAB-MICRO | | | [...] + + + | [facility] | [address] [place] [address] | [place] [address] | | | LAB-MICRO | | | [...] Lab) | | | | | | [facility] | | | | | | [address] | | | [address] | | | | | | [place] [address] | | | | + + + + + + + + | Specimen | + + | | + + + + + + + | Performing | Address | City/State/Zipcode | Phone Number | | Organization | | | | + + + + + | [facility] | [address] | [place] [address] | | | LAB-MICRO | | | [...] + + + | [facility] | [address] | [place] [address] | | | LAB-MICRO | | | [...] + + + | [facility] | [address] [place] [address] | [place] [address] | | | LAB-MICRO | | | [...] RLB | | | | | | ([address] [facility]) | | | | | | [facility] | | | | | | [address] [place] | | | | | | [address] | | | | | | [place] [address] | | | | + + + + + + + + | Specimen | + + | | + + + + + + + | Performing | Address | City/State/Zipcode | Phone Number | | Organization | | | | + + + + + | [facility] | [address] | [place] [address] | | | LAB-MICRO | | | [...] Permanente | | | | | | [address] | | | | | | [place], | | | | | | [place] [address] | | | | + + + + + + + + | Specimen | + + | | + + + + + + + | Performing | Address | City/State/Zipcode | Phone Number | | Organization | | | | + + + + + | [facility] | [address] | [place] [address] | | | LAB-MICRO | | | [...] + + + | [facility] | [address] | [place] [address] | | | LAB-MICRO | | | [...] + + + | [facility] | [address] [place] [address] | [place] [address] | | | LAB-MICRO | | | [...] Lab) | | | | | | [facility] | | | | | | [address] | | | [address] | | | | | | [place] [address] | | | | + + + + + + + + | Specimen | + + | | + + + + + + + | Performing | Address | City/State/Zipcode | Phone Number | | Organization | | | | + + + + + | [facility] | [address] | [place] [address] | | | LAB-MICRO | | | | + + + + + FUNGUS PRELIMINARY 1 10/16/2010 9:50 AM PST) + + + + [...] | + + + + + | [facility] | [address] | [place] [address] | | | LAB-MICRO | | | [...] RLB | | | | | | ([address] [facility]) | | | | | | [facility] | | | | | | [address] | | | | | | [address] | | | | | | [place] [address] | | | | + + + + + + + + | Specimen | + + | | + + + + + + + | Performing | Address | City/State/Zipcode | Phone Number | | Organization | | | | + + + + + | [facility] | [address] | [place] [address] | | | LAB-MICRO | | | [...] | + + + + + | [facility] | [address] | [place] [address] | | | LAB-MICRO | | | [...] [facility] | | | | | | [facility] | | | | | | [address] | | | | | | [place], | | | | | | [place] [address] | | | | + + + + + + + + | Specimen | + + | | + + + + + + + | Performing | Address | City/State/Zipcode | Phone Number | | Organization | | | | + + + + + | [facility] | [address] | [place] [address] | | | LAB-MICRO | | | [...] + + + | [facility] | [address] | [place] [address] | | | LAB-MICRO | | | [...] + + + + + | [facility] | [address] | [place] [address] | | | LAB-MICRO | | | [...] Lab) | | | | | | [facility] | | | | | | [address] | | | [address] | | | | | | [place] [address] | | | | + + + + + + + + | Specimen | + + | | + + + + + + + | Performing | Address | City/State/Zipcode | Phone Number | | Organization | | | | + + + + + | [facility] | [address] | [place] [address] | | | LAB-MICRO | | | [...] + + + | [facility] | [address] | [place] [address] | | | LAB-MICRO | | | [...] RLB | | | | | | ([address] [facility]) | | | | | | [facility] | | | | | | [address] | | | | | | [address] | | | | | | [place] [address] | | | | + + + + + + + + | Specimen | + + | | + + + + + + + | Performing | Address | City/State/Zipcode | Phone Number | | Organization | | | | + + + + + | [facility] | [address] | [place] [address] | | | LAB-MICRO | | | [...] + + + | [facility] | [address] | [place] [address] | | | LAB-MICRO | | | [...] 10/26/10 | | | | | | [facility] ([address] [facility]) | | | | | | [facility] | | | | | | [place] | | | | | | [address] | | | | | | [place], | | | | | | [place] [address] | | | | + + + + + + + + | Specimen | + + | | + + + + + + + | Performing | Address | City/State/Zipcode | Phone Number | | Organization | | | | + + + + + | [facility] | [address] | [place] [address] | | | LAB-MICRO | | | [...] + + + + + | [facility] | [address] [place] [address] | [place] [address] | | | LAB-MICRO | | | [...] [facility] | [address] | [place] [address] | | | PATHOLOGY | [address] [...] | + + + + + | [facility] [place] [place] | [address] | [place] [address] | | | PATHOLOGY | [address] [...] effective 02/15/09 | [facility] | | RLB ([facility] [facility]) [facility] | [facility]IONAL | | [facility] [place] [address] [facility] | LABORATORY | | [place] [address] | | + + + + + + + + | Performing | Address | City/State/Zipcode | Phone Number | | Organization | | | | + + + + + | [facility] | [address] | [place] [address] | | | LABORATORY | | | [...] At | + + + | RLB ([address] [facility]) | [facility] | | [facility] [address] [place] [address] [facility] | REGIONAL | | [place] [address] | LABORATORY | + + + + + + + + | Performing | Address | City/State/Zipcode | Phone Number | | Organization | | | | + + + + + | [facility] | [address] | [place] [address] | | | LABORATORY | | | [...] [facility] | [address] | [place], [place] | | | THERAPY | [address] | [address] | | + + + + + OPERATION RECORD (10/16/2010 12:00 AM PST) + + + | Narrative | Performed At | + + + | [id number] | | | [id number] CHAD | | | CHASTITY Osei [id number] Date: | | | 10/16/2010 Attending Surgeon: | | | Kalyan Arias M.D. Web User Experience Strategist(s): | | | Raymond Valdes M.D. Preoperative [...] She presented as an ED transfer to [facility] approximately 3 days | | | prior [...] | multimodal DVT prophylaxis. Kalyan Arias M.D. [facility] / | | | [id number] / [id number] / [id number] / | | | | | + + + + + | Procedure Note | + + | Kalyan Arias MD - 10/17/2010 9:[address] [facility] [id number] | | 01/ [id number] [facility] | | [id number] Date: 10/16/2010 Attending Surgeon: Kalyan | | Ortiz Arias M.D. Web User Experience Strategist(s): Raymond Valdes M.D. Preoperative | | Diagnosis(es):1. [...] who is almost 3 years out from [facility] total hip arthroplasty. She had a [...] She presented as an ED transfer to [facility] approximately 3 | | days priorto the [...] aerobic cultures and blood culture bottles per [facility] biopsy protocol. The fascia | [...] | will receivemultimodal DVT prophylaxis. Kalyan Arias M.D.[facility] / [id number] / [id number] | | / [id number] / T: 10/16/2010 | |minimally symptomatic for her, and she did well with the arthroplasty | |itself. She presented as an ED transfer to [facility] approximately 3 days prior | |to the [...] | | | |Kalyan Arias M.D. | |[facility] / | |[id number] / [id number] / [id number] / | | | | | | [...] | [facility] | [address] | [place], [place] | | | [place] [facility]PS | [facility] | [address] | | | TESTS | | | [...] + | [facility] | [address] | [place] [address] | | | PATHOLOGY | [address] [...] + + + + | PRODUCT | [id number] | | [facility] | | | UNIT [...] + + + + | BLOOD | [address] | | [facility] | | | PRODUCT [...] DEPARTMENT OF | [address] | [place] [address] | | | PATHOLOGY | [address] [...] + + + + | PRODUCT | [id number] | | [facility] | | | UNIT [...] + + + + | BLOOD | 01005 | | [facility] | | | PRODUCT [...] | + + + + + | [facility] [place] | [address] | [place] [address] | | | PATHOLOGY | [address] [...] + + | Performing | Address | City/State/[facility] | Phone Number | | Organization | | | | + + + + + | [facility] | [address] | [place], [place] | | | [facility] OF [facility] | [address] | [address] | | | TESTS | | | [...] | | | POC | | | [place], POINT | | | | | | OF CARE | | | | | | TESTS | | + +---------+ + + + + + | Specimen | + + | | + + + + + + + | Performing | Address | City/State/Zipcode | Phone Number | | Organization | | | | + + + + + | [facility] | [address] | [place], [place] | | | [place] OF [place] | [facility] | [address] | | | TESTS | | | | + + + + + CAPILLARY BLOOD GLUCOSE, POC (10/14/2010 11:02 PM PST) + +---------+ + + + | Component | Value | Ref Range | Performed | Pathologist | | | | | At | Signature | + +---------+ + + + | BLOOD | 142 (H) | 60 - 99 mg/dL | [facility] - | | | GLUCOSE, | | [...] [facility] | [address] | [place], [place] | | | SUPRIYA POINT OF CARE | [address] | [address] | | | TESTS | | | [...] CAPELLAN, | | | | | | M.Gene. STATUS FINAL / | | | | [...] [facility] | [address] | [place], [place] | | | THERAPY | [address] | [address] | | + + + + + [...] view image for the detailed interpretation from [employer] results. | CARDIOLOGY | + + + + + + + + | Performing | Address | City/State/Zipcode | Phone Number | | Organization | | | | + + + + + | [facility] | [address] | [place], [place] | | | CARDIOLOGY | [address] | [address] | | + + + + + [...] + + + + + | [facility] | [address] | [place] [address] | | | LAB-MICRO | | | [...] DEPARTMENT OF | [address] | [place] [address] | | | PATHOLOGY | [address] [...] + + | [facility] | [address] | [place] [address] | | | PATHOLOGY | [address] [...] | + + + + + | [facility] [place] [place] | [address] | [place] [address] | | | PATHOLOGY | [address] [...] Lab) | | | | | | [facility] | | | | | | [address] | | | | [address] | [address] | | | | | | [place] [address] | | | | + + + + + + + + | Specimen | + + | | + + + + + + + | Performing | Address | City/State/Zipcode | Phone Number | | Organization | | | | + + + + + | [facility] | [address] | [place] [address] | | | LAB-MICRO | | | | + + + + + UA, KADEN ONLY (10/13/2010 10:45 PM PST) + + [...] [facility] DE[facility]MENT | [address] | [place] [address] | | | PATHOLOGY | [address] [...] [facility] | [address] | [place] [address] | | | PATHOLOGY | [address] [...] | + + + + + | [facility] [place] [place] | [address] | [place] [address] | | | PATHOLOGY | [address] [...] + + + | [facility] | [address] | [place] [address] | | | LAB-MICRO | | | [...] + + + | [facility] | [address] | [place] [address] | | | LAB-MICRO | | | [...] [facility] | [address] | [place] [address] | | | PATHOLOGY | [address] [...] | + + + + + | [facility] [place] [place] | [address] | [place] [address] | | | PATHOLOGY | [address] [...] DEPARTMENT OF | [address] | [place] [address] | | | PATHOLOGY | [address] [...] + + + | [facility] | [address] | [place] [address] | | | LAB-MICRO | | | [...] | + + + + + | [facility] [place] [place] | [address] | [place] [address] | | | PATHOLOGY | [address] [...] DEPARTMENT OF | [address] | [place] [address] | | | PATHOLOGY | [address] [...] DEPARTMENT OF | [address] | [place] [address] | | | PATHOLOGY | [address] [...] | + + + + + | [facility] [place] [place] | [address] | [place] [address] | | | PATHOLOGY | [address] [...] effective 10/26/08 | [facility] | | RLB ([facility]) [facility] | REGIONAL | | [facility] [place] [address] | LABORATORY | | [place] [address] | | + + + + + + + + | Performing | Address | City/State/Zipcode | Phone Number | | Organization | | | | + + + + + | [facility] | [address] | [place] [address] | | | LABORATORY | | | [...] | + + | Lynn rash of gill Other candidiasis of other specified sites | [...] 10/16/10 at 0958, | | | Until 10/16/10 at 1121 | | + +---+ [...] | | VICODIN) 5-500 mg 1-2 Tab 10-01 | | 11 9:17 | | | [...] | | | (after last modification) on [place] | | | | | | [...]
--- OUTSIDE RECORDS SUMMARY | ~2020-04-27 | XMS | Encounter Summary ---
Demographics + + + | Address | [address] | | | [place] [address] | + + + | Home Phone [...] Team Providers + +------+ + | Care Puff Ironer Name | Role | Phone | + [...] | | | unspecified | | Rd [place], | | | | | whether | | [place] | | | | | generalized | | [address] | | | | | or | | Phone: | | | | | localized, | | [phone] | | | | | pelvic | | Fax: | | | | | region and | | [phone] | | | | | thigh | [...] | | | | Mailcode: [id number] | [place], [place] | | | | | [facility] | [address] | | | | | [place], [place] | [phone] | | | | | [address] | | | | | | [phone] | | | +--------+---------+ + + + [...]
--- OUTSIDE RECORDS SUMMARY | ~2020-04-27 | XMS | Encounter Summary ---
Demographics + + + | Address | [address] | | | [place] [address] | + + + | Home Phone [...] Providers + +------+ + | Care Lunchroom Aide Name | Role | Phone | [...]
--- OUTSIDE RECORDS SUMMARY | ~2020-04-27 | XMS | Encounter Summary ---
Demographics + + + | Address | [address] | | | [place] [address] | + + + | Home Phone [...] Team Providers + +------+ + | Care Storyboard Artist Name | Role | Phone | [...] as of this encounter Progress Notes Interface, Specialty Department Supervisor In - 04/28/2005 10:57 PM PDTClinic Date: [...] longer any fluid pocket. Lloyd Garcia M.D. Hotel Front Office Manager, Orthopedics and Rehabilitation / [id number] / [id number] / [id number] / [id number] cc: Everett Ibrahim MD [address] [place], [place] [id number] signed by Interface, Specialty Department Supervisor In at 04/28/2005 10:57 PM PDTdocumented in this encounter Plan of Treatment Not on filedocumented as of this encounter Visit Diagnoses Not on filedocumented in this encounter"
--- OUTSIDE RECORDS SUMMARY | ~2020-04-27 | XMS | Encounter Summary ---
Demographics + + + | Address | [address] | | | [place] [address] | + + + | Home Phone [...] Providers + +------+ + | Care Retail Delivery Driver Name | Role | Phone | + +------+ + | Marta Jenkins CYLINDER PRESS OPERATOR HELPER | PCP | | + +------+ [...] [id number] | | | | | | [place], [place] | | | | | | [address] | | | | | | [phone] | | | +--------+ + + + [...]
--- OUTSIDE RECORDS SUMMARY | ~2020-04-27 | XMS | Encounter Summary ---
Demographics + + + | Address | [address] | | | [place] [address] | + + + | Home Phone [...] Team Providers + +------+ + | Care Support Technician Name | Role | Phone | [...] as of this encounter Progress Notes Interface, Top Tile Decorator In - 08/03/2006 5:18 AM PSTCLINIC DATE: [...] medicines from her primary care physician, Dr. Noalnd. Apparently, she has been cut off her Valium, changed from Soma to Flexeril. She is no longer taking Neurontin but continues with indomethacin 1 tablet p.o. b.i.d. which is helpful. She will return to clinic in 3 months' time for reevaluation. We will obtain an AP and frog lateral x-rays of the right hip at that time. Lloyd Garcia M.D. Overhead Crane Technician of Orthopedics and Rehabilitation / [id number] / [id number] / [id number] / [id number] cc: Helio Noland M.D. [facility] [address] [place], [place] [id number] signed by Interface, Top Tile Decorator In at 08/03/2006 5: 18 AM PSTdocumented in this encounter Plan of Treatment Not on filedocumented as of this encounter Visit Diagnoses Not on filedocumented in this encounter"
--- OUTSIDE RECORDS SUMMARY | ~2020-04-27 | XMS | Encounter Summary ---
Demographics + + + | Address | [address] | | | [place] [address] | + + + | Home Phone | | + + + | Preferred Language | Unknown | + + + | Marital Status | | + + + | Synagogue Affiliation | 1076 | + + + | Race | Unknown | + + + | Ethnic Group | Unknown | + + + Author + + + | Author | [facility] | | | and [place] | + + + | Organization | [facility] | | | [...] Providers + +------+ + | Care Business Process Architect Name | Role | Phone | + +------+ + PCP | Unavailable | + +------+ + Encounter Details +--------+ + + + + | Date | Type | Department | Care Team | Description | +--------+ + + + + | 10/05/ | Hospital | [facility] | Lei Greenwood | | | 2010 | Encounter | MED CTR XRAY [address] | [address] | | | | | [address] | [address] [place] | | | | | [place] [address] | [address] | | | | | [phone] | [phone] | | | | | | | [...] [place] | | | | | | [id number] | | | | | | | | +--------+---------+ + + + documented as of this encounter Visit Diagnoses Not on filedocumented in this encounter"
--- OUTSIDE RECORDS SUMMARY | ~2020-04-27 | XMS | Encounter Summary ---
Demographics + + + | Address | [address] | | | [place] [address] | + + + | Home Phone | | + + + | Preferred Language | Unknown | + + + | Marital Status | | + + + | Orthodox Affiliation | 1076 | + + + | Race | Unknown | + + + | Ethnic Group | Unknown | + + + Author + + + | Author | [facility] | | | and [place] | + + + | Organization | [facility] | | [...] Team Providers + +------+ + | Care Statistical Programmer Name | Role | Phone | [...] + + | 01/24/ | Office | [facility] | Xiang Sepulveda, | Back pain, | | 2019 | Visit | [facility] | DO [address] | unspecified back | | | | [address] | [place], [place] | location, | | | | [address] | [address] | unspecified back | | | | [place], [place] | | pain laterality, | | | | [address] | | unspecified | | | | [phone] | | chronicity (Primary | | | [...] the other nostri l. Talk to your cover seamer regarding the use of this medicine in children. While this drug m ay be prescribed for children as young as newborns for selected conditions, precautions do a pply. What side effects may I notice from receiving this medicine? Side effects that you should report to your doctor or health director career services as soon as p ossible: allergic reactions like skin rash, itching or hives, swelling of the face, lips, or tong ue breathing problems fast, irregular heartbeat high blood pressure pain that was controlled by narcotic pain medicine seizures Side effects that usually do not require medical attention (report to your doctor or health director career services if they continue or are bothersome): anxious [...] phone number of your doctor or health director career services and local hospital ready. You may need to have additional doses of this medicine. Each nasal spray contains a single dose. Some emergencies may require additional doses. After use, bring the treated person to the nearest hospital or call 911. Make sure the peri swann health director career services knows that the person has received an [...] but not limited to phys ical therapy, congregational care pastor, acupuncture, massage therapy, and nutritional health counse [...] Author Status Filed Medication Agreement Antonella Sprague, Tipple Mechanic Active 11/25/2019 10:52 AM Pain Contract- Dr. Sepulveda 11/25/2019 PEG Pain screening tool (Pain, enjoyment, general activity) Total score: (Printable questionnaires in Estonian ) Interpretation of Total Score: PEG scores are used to track changes over time. It should de crease after therapy has begun. Last 4 PEG Scores: No flowsheet data found. Opioid Risk Tool (ORT): Total Score Temp: 36.6 C (97.8 F) Temp Source: Oral Pulse: 111 Resp: 18 BP: (!) 154/91 SpO2: 97 % (From Chronic Pain tab; printable questionnaires in Estonian) Interpretation of Total Score: 0 to 3 [...] ; Surg andrés: Rustam Schmid MD; Location: [facility] MAIN OR Review of Systems Constitutional: [...] reviewed, listed controlled substances are consistent with [facility] prescriptions and patient reported use. [...] imited to physical therapy, massage therapy, acupuncture, congregational care pastor, along with jabari mmended psychological counseling, either privately, or in group sessions offered by private care individuals, community services, or gnosticist organizations. Appropriate referrals were made at patient [...] and coordination of care with other health director career services and monitoring labs results, other test results and imagin g including [facility] and/or [facility] prescription monitoring systems. This document has been created using [employer] Voice Recognition software and [employer]. The entry has been reviewed for content and accuracy, but there may still exist "sound alike" cyber intelligence analyst word errors and/or unintended additions and deletions. 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
--- OUTSIDE RECORDS SUMMARY | ~2020-04-27 | XMS | Encounter Summary ---
Demographics + + + | Address | [address] | | | [place] [address] | + + + | Home Phone [...] Team Providers + +------+ + | Care Street Light Repairer Helper Name | Role | Phone | [...] of this encounter Progress Notes Interface, Manager Ui In - 05/17/2006 3:10 AM PDTCLINIC DATE: [...] arthroplasty at that point. Lloyd Garcia M.D. Hand Box Folder, Orthopedics and Rehabilitation / [id number] / [id number] / [id number] / [id number] cc: Ninfa Guillen M.D. [address] [place] [id number] signed by Interface, Manager Ui In at 05/17/2006 3:1 0 AM PDTInterface, Manager Ui In - 05/17/2006 3:10 AM PDTCLINIC DATE: [...] MD Lloyd Causey M.D. SAMANTHA / SALEEM [id number] / [id number] / [id number] / Tdocumented in this encounter Plan of Treatment Not on filedocumented as of this encounter Visit Diagnoses Not on filedocumented in this encounter"
--- OUTSIDE RECORDS SUMMARY | ~2020-04-27 | XMS | Encounter Summary ---
Demographics + + + | Address | [address] | | | [place] [address] | + + + | Home Phone [...] Team Providers + +------+ + | Care Measurement Advisor Name | Role | Phone | [...] | | [address] | [place], | | | | | Mailcode: PV430 | [place] [address] | | | | | [facility] | | | | | | [place] | | | | | | [address] | | | | | | [phone] | | | +--------+ + + + [...] + + | Performing | Address | City/State[facility] | Phone Number | | Organization [...] [facility] DEPARTMENT | | | | | RADIOLOGY | | | | + +---------+ + + documented in this encounter Visit Diagnoses Not on filedocumented in this encounter"
--- OUTSIDE RECORDS SUMMARY | ~2020-04-27 | XMS | Encounter Summary ---
Demographics + + + | Address | [address] | | | [place] [address] | + + + | Home Phone [...] Team Providers + +------+ + | Care Pump Oiler Name | Role | Phone | + [...] as of this encounter Progress Notes Interface, Waterworks Employee In - 07/10/2006 1:00 AM PDTCLINIC DATE: [...] right total hip replacement. Lloyd Garcia M.D. Product Support Engineer Orthopedic and Rehabilitation / [id number] / [id number] / [id number] / cc: JILLIAN TODD MD [address] [id number] signed by Interface, Waterworks Employee In at 07/10/2006 1:0 0 AM PDTdocumented in this encounter Plan of Treatment Not on filedocumented as of this encounter Visit Diagnoses Not on filedocumented in this encounter"
--- OUTSIDE RECORDS SUMMARY | ~2020-04-27 | XMS | Encounter Summary ---
Demographics + + + | Address | [address] | | | [place] [address] | + + + | Home Phone [...] Team Providers + +------+ + | Care Insurance Verification Representative Name | Role | Phone | [...] as of this encounter Progress Notes Interface, Baggage Handler In - 04/28/2005 6:17 PM PDTClinic Date: [...] is completed this weekend. Lloyd Garcia M.D. Account Receivable Clerk, Orthopedics and Rehabilitation / [id number] / [id number] / [id number] / [id number] cc: Ninfa Guillen M.D. [address] [place] [address], [place] [id number] signed by Interface, Baggage Handler In at 04/28/2005 6:1 7 PM PDTdocumented in this encounter Plan of Treatment Not on filedocumented as of this encounter Visit Diagnoses Not on filedocumented in this encounter"
--- OUTSIDE RECORDS SUMMARY | ~2020-04-27 | XMS | Encounter Summary ---
Demographics + + + | Address | [address] | | | [place] [address] | + + + | Home Phone [...] Team Providers + +------+ + | Care Bill Clerk Name | Role | Phone | [...] + + | 01/24/ | Office | [facility] | Xiang Sepulveda, | Back pain, | | 2019 | Visit | [facility] | DO [address] | unspecified back | | | | [address] | [place], [place] | location, | | | | [address] | [address] | unspecified back | | | | [place], [place] | | pain laterality, | | | | [address] | | unspecified | | | | [phone] | | chronicity (Primary | | | [...] the other nostri l. Talk to your single needle tufting machine operator regarding the use of this medicine in children. While this drug m ay be prescribed for children as young as newborns for selected conditions, precautions do a pply. What side effects may I notice from receiving this medicine? Side effects that you should report to your doctor or health manager critical care unit as soon as p ossible: allergic reactions like skin rash, itching or hives, swelling of the face, lips, or tong ue breathing problems fast, irregular heartbeat high blood pressure pain that was controlled by narcotic pain medicine seizures Side effects that usually do not require medical attention (report to your doctor or health manager critical care unit if they continue or are bothersome): anxious [...] phone number of your doctor or health manager critical care unit and local hospital ready. You may need to have additional doses of this medicine. Each nasal spray contains a single dose. Some emergencies may require additional doses. After use, bring the treated person to the nearest hospital or call 911. Make sure the peri swann health manager critical care unit knows that the person has received an [...] Elsevier documented in this encounter Progress Notes iXang Sepulveda DO - 01/25/2020 11:20 AM PDTFormatting [...] not limited to phys ical therapy, daycare director, acupuncture, massage therapy, and nutritional health counse [...] Author Status Filed Medication Agreement Antonella Sprague, Metal Roofing Mechanic Active 11/25/2019 10:52 AM Pain Contract- Dr. Sepulveda 11/25/2019 PEG Pain screening tool (Pain, enjoyment, general activity) Total score: (Printable questionnaires in Brazilian ) Interpretation of Total Score: PEG scores are used to track changes over time. It should de crease after therapy has begun. Last 4 PEG Scores: No flowsheet data found. Opioid Risk Tool (ORT): Total Score Temp: 36.6 C (97.8 F) Temp Source: Oral Pulse: 111 Resp: 18 BP: (!) 154/91 SpO2: 97 % (From Chronic Pain tab; printable questionnaires in Brazilian) Interpretation of Total Score: 0 to 3 [...] ; Surg andrés: Rustam Schmid MD; Location: [facility] MAIN OR Review of Systems Constitutional: [...] reviewed, listed controlled substances are consistent with [facility] prescriptions and patient reported use. [...] to physical therapy, massage therapy, acupuncture, daycare director, along with jabari mmended psychological counseling, either privately, or in group sessions offered by private care individuals, community services, or orthodoxy organizations. Appropriate referrals were made at patient [...] and coordination of care with other health patient care provider and monitoring labs results, other test results and imagin g including [facility] and/or [facility] prescription monitoring systems. This document has been created using [employer] Voice Recognition software and [employer]. The entry has been reviewed for content and accuracy, but there may still exist "sound alike" naphthalene still operator word errors and/or unintended additions and deletions. [...] [place] | | | | | | [id number] | | | | | | | [...] pain, chronic, left | + + | intermission coordinator current use of opiate analgesic Encounter for long-term (current) use of | | other medications | + + documented in this encounter
--- OUTSIDE RECORDS SUMMARY | ~2020-04-27 | XMS | Encounter Summary ---
Demographics + + + | Address | [address] | | | [place] [address] | + + + | Home Phone [...] Team Providers + +------+ + | Care Mailroom Associate Name | Role | Phone | [...] [address] | | | | | | [address] [place] | | | | | | [address] | | | | | | [place], [place] | | | | | | [address] | | | | | | [phone] | | | +--------+ + + + [...]
--- OUTSIDE RECORDS SUMMARY | ~2020-04-27 | XMS | Encounter Summary ---
Demographics + + + | Address | [address] | | | [place] [address] | + + + | Home Phone | | + + + | Preferred Language | Unknown | + + + | Marital Status | | + + + | Mormon Affiliation | 1076 | + + + | Race | Unknown | + + + | Ethnic Group | Unknown | + + + Author + + + | Author | [facility] | | | and [place] | + + + | Organization | [facility] | | | and [...] Providers + +------+ + | Care Clinical Trial Associate Name | Role | Phone | [...] | 08/02/ | Office | [facility] | Ladarius Martínez PA | MAMADOU on CPAP (Primary | | 2013 | Visit | SLEEP DISORDER [address] | [address] | Dx) | | | | [address] [place] | [place], [place] | | | | | [place] [address] | [address] | | | | | [phone] | | | +--------+---------+ + + + [...] S9 obtained from: [facility] [place] Pressure: 9-16 cm 95%: 13.6 cm Maximum: [...] to get her equipment from [facility] in [place] instead of [facility]. Review of Systems Objective: Physical Exam [...] months, sooner prn. Thirty minutes were spent tous-gc-yrcq, wi th the majority of time spent in counseling. Ladarius Martínez PA-C cc: Dr. Barry documented in this enco unter Miscellaneous Notes Miscellaneous - ONBASE SCAN [facility] - 08/02/2014 12:00 AM PST iscellaneous - ONBASE SCAN [facility] - 08/02/2014 12:00 AM PSTEle [...] [place] | | | | | | [id number] | | | | | | | | +--------+---------+ + + + documented as of this encounter Visit Diagnoses + + | Diagnosis | + + | MAMADOU on CPAP - Primary Obstructive sleep apnea (adult) (pediatric) | + + documented in this encounter"
--- OUTSIDE RECORDS SUMMARY | ~2020-04-27 | XMS | Encounter Summary ---
Demographics + + + | Address | [address] | | | [place] [address] | + + + | Home Phone [...] Team Providers + +------+ + | Care Fabricator Foam Rubber Name | Role | Phone | + [...] this encounter Progress Notes Interface, Audio Visual Collections Coordinator In - 07/22/2006 3:18 AM PDTCLINIC DATE: [...] of the right knee. Lloyd Garcia M.D. american history professor, Orthopedics and Rehabilitation. BIRGIT / SALEEM [id number] / [id number] / [id number] / [id number] cc: JILLIAN TODD MD [address] [facility] [id number] signed by Interface, Audio Visual Collections Coordinator In at 07/22/2006 3:1 8 AM PDTdocumented in this encounter Plan of Treatment Not on filedocumented as of this encounter Visit Diagnoses Not on filedocumented in this encounter"
--- OUTSIDE RECORDS SUMMARY | ~2020-04-27 | XMS | Encounter Summary ---
Demographics + + + | Address | [address] | | | [place] [address] | + + + | Home Phone [...] Team Providers + +------+ + | Care Correctional Substance Abuse Counselor Name | Role | Phone | [...] | | | | JOSE | [address] [facility] | | | | | | MEDICAL | [facility] | | | | | | CLINIC [address] | [address] [place], | | | | | | [address] | [place] | | | | | | [place], [place] | [address] | | | | | | [address] | Phone: | | | | | | | [phone] | | | | | | | Fax: | | | | | | | [phone] | +--------+--------+ + + + + Encounter [...] | | | | Mailcode: PV430 | [place], [place] | Calcification; Back | | | | [facility] | [address] | Pain; Hip Pain | | | | [place], [place] | [phone] | | | | | [address] | | | | | | [phone] | | | +--------+---------+ + + + [...] and plan of care. KALYAN COLBY MD [facility] [address] [facility] [place] [phone] aRaul kasper - 8 12:04 PM PDT [...] w ound vac placement were undertaken with local intermodal truck driver antibiotics until the infection cleared. She now [...]
--- OUTSIDE RECORDS SUMMARY | ~2020-04-27 | XMS | Encounter Summary ---
Demographics + + + | Address | [address] | | | [place] [address] | + + + | Home Phone [...] Team Providers + +------+ + | Care Vmware Engineer Name | Role | Phone | [...] of this encounter Progress Notes Interface, Manager Cosmetics In - 04/28/2005 5:10 PM PDTClinic Date: 08/31/2003 Orthopedic The patient called on August 31, 2003, requesting a prescription refill for oxycodone. A prescription refill was granted 50, 5 mg oxycodone was sent. This prescription refill was handled by Mariella Camacho. Dev Fleming M.D. / [id number] / [id number] / [id number] / Tdocumented in this encounter Plan of Treatment Not on filedocumented as of this encounter Visit Diagnoses Not on filedocumented in this encounter"
--- OUTSIDE RECORDS SUMMARY | ~2020-04-27 | XMS | Encounter Summary ---
Demographics + + + | Address | [address] | | | [place] [address] | + + + | Home Phone [...] Team Providers + +------+ + | Care Strapper Name | Role | Phone | + [...] | | | [address] | [address] [place], [place] | | | | | Mailcode: PV430 | [address] | | | | | [facility] | | | | | | [place], [place] | | | | | | [address] | | | | | | [phone] | | | +--------+ + + + [...] | + +---------+ + + | [facility] DEPARTMENT OF | | | [...] | + +---------+ + + | [facility] DEPARTMENT OF | | | | | RADIOLOGY | | | | + +---------+ + + documented in this encounter Visit Diagnoses Not on filedocumented in this encounter"
--- OUTSIDE RECORDS SUMMARY | ~2020-04-27 | XMS | Encounter Summary ---
Demographics + + + | Address | [address] | | | [place] [address] | + + + | Home Phone [...] Team Providers + +------+ + | Care Fastener Technologist Name | Role | Phone | [...] | | | | Mailcode: PV430 | [place], [place] | | | | | [facility] | [address] | | | | | [place], [place] | [phone] | | | | | [address] | | | | | | [phone] | | | +--------+ + + + [...]
--- OUTSIDE RECORDS SUMMARY | ~2020-04-27 | XMS | Encounter Summary ---
Demographics + + + | Address | [address] | | | [place] [address] | + + + | Home Phone [...] Providers + +------+ + | Care Bus Aide Name | Role | Phone | [...] | | [address] | [place], | | | | | Mailcode: PV430 | [place] [address] | | | | | [facility] | | | | | | [place] | | | | | | [address] | | | | | | [phone] | | | +--------+ + + + [...]
--- OUTSIDE RECORDS SUMMARY | ~2020-04-27 | XMS | Encounter Summary ---
Demographics + + + | Address | [address] | | | [place] [address] | + + + | Home Phone [...] Providers + +------+ + | Care Clinical Trials Data Coordinator Name | Role | Phone | + +------+ + PCP | Unavailable | + +------+ + Encounter Details +--------+ + + + + | Date | Type | Department | Care Team | Description | +--------+ + + + + | 09/14/ | Results | | Other, Faculty | | | 2002 | Only | | [phone] | | +--------+ + + + + [...] + | Ordered by JEFERSON CRONIN, . [id number] Patient unavailable, | | | specimen not obtained | | + + + + + + + + | Performing | Address | City/State/Zipcode | Phone Number | | Organization | | | | + + + + + | [facility] | [address] | [place] [address] | | | LABORATORY | | | [...] + | Ordered by JEFERSON CRONIN JR. [id number] Patient unavailable, | [facility] | | specimen not obtained | DEPARTMENT OF | | | PATHOLOGY | + + + + + + + + | Performing | Address | City/State/Zipcode | Phone Number | | Organization | | | | + + + + + | [facility] DEPARTMENT | [address] [facility] | [place] [address] | | | PATHOLOGY | [address] | | | + + + + + | [facility] | [address] [facility] | [place] [address] | | | PATHOLOGY | [address] [...] + | Ordered by JEFERSON CRONIN JR. [phone] Staff or dialysis draw | [facility] | | required. | DEPARTMENT OF | | | PATHOLOGY | + + + + + + + + | Performing | Address | City/State/Zipcode | Phone Number | | Organization | | | | + + + + + | [facility] DEPARTMENT OF | [address] | [place] [address] | | | PATHOLOGY | [address] | | | + + + + + | [facility] DEPARTMENT OF | [address] | [place] [address] | | | PATHOLOGY | [address] [...] + + + + + | [facility] DEPARTMENT OF | [address] | [place] [address] | | | PATHOLOGY | [address] | | | + + + + + | [facility]MENT OF | [address] | [place] [address] | | | PATHOLOGY | [address] [...] + | [facility] | [address] | [place] [address] | | | PATHOLOGY | [address] | | | + + + + + | [facility] DEPARTMENT OF | [address] | [place] [address] | | | PATHOLOGY | [address] | | | + + + + + documented in this encounter Visit Diagnoses Not on filedocumented in this encounter"
--- OUTSIDE RECORDS SUMMARY | ~2020-04-27 | XMS | Encounter Summary ---
Demographics + + + | Address | [address] | | | [place] [address] | + + + | Home Phone [...] Team Providers + +------+ + | Care Slot Floor Supervisor Name | Role | Phone | + +------+ + PCP | Unavailable | + +------+ + Encounter Details +--------+ + + + + | Date | Type | Department | Care Team | Description | +--------+ + + + + | 11/22/ | Results | | Other, Faculty | | | 2003 | Only | | [phone] | | +--------+ + + + + [...] + + + | [facility] | [address] | [place] [address] | | | LAB-MICRO | | | [...] + + + | [facility] | [address] | [place] [address] | | | LAB-MICRO | | | [...] | + + + + + | [facility] | [address] | [place] [address] | | | LAB-MICRO | | | [...] [facility] | [address] | [place] [address] | | | LAB-MICRO | | | [...] [facility] | [address] | [place] [address] | | | LAB-MICRO | | | [...] [facility] | [address] | [place] [address] | | | LAB-MICRO | | | [...] + + + | [facility] | [address] | [place] [address] | | | LAB-MICRO | | | | + + + + + documented in this encounter Visit Diagnoses Not on filedocumented in this encounter"
--- OUTSIDE RECORDS SUMMARY | ~2020-04-27 | XMS | Encounter Summary ---
Demographics + + + | Address | [address] | | | [place] [address] | + + + | Home Phone [...] Team Providers + +------+ + | Care Pricer Bagger Name | Role | Phone | + [...] | Transcriptions | + + | Interface, Camp Director In - 03/06/2006 1:10 AM PDT Date: | | 08/16/2003Attending Surgeon: Lloyd Garcia M.D.Housekeeper And Laundry Assistant(s): | | Benson Boone M.D.Preoperative Diagnosis:Right hip [...] cc per Arreaga drain to | | 8-Dutch tubes to 1 median Hemovac suctioncanister.Postoperative Plan:Ancef [...] brought to | | OperatingRoom #6 at [facility] Operating Room suite.She | | was [...] Vicryl mattress sutures andaddition | | of djpplh-kh-wgpaw 0 Vicryl. The fascial layer with mscclvacccryvfcda-zv-zvhfy 0 | | Vicryl sutures. Fadumo's fascia [...] to | | leaving the room.Lloyd Garcia M.D.Video Systems Engineer, Orthopedics and | | Rehabilitation / [id number] / [id number] / [id number] / [id number]: 08/16/2003T: | | 08/16/2003cc:Ninfa Guillen M.D.[address] [place] [address] | | | |The posterior superior iliac [...] Vicryl mattress sutures and | |addition of lxccxj-th-zdbuc 0 Vicryl. The fascial layer with interrupted | |wpwltq-ir-bvcdt 0 Vicryl sutures. Fadumo's fascia was closed [...] | | | |Lloyd Garcia M.D. | |Video Systems Engineer, Orthopedics and Rehabilitation | | | | / | |[id number] / [id number] / [id number] / [id number] | | | | | | | |cc: | | | |Ninfa Guillen M.D. | |[address], | |[place] [address] | + + documented in this encounter Visit Diagnoses Not on filedocumented in this encounter"
--- OUTSIDE RECORDS SUMMARY | ~2020-04-27 | XMS | Encounter Summary ---
Demographics + + + | Address | [address] | | | [place] [address] | + + + | Home Phone [...] Providers + +------+ + | Care Operations Analyst Name | Role | Phone | [...] | [facility] | MEGAN Reddy [address] | | | | | [address] | [address] | | | | | Loop Physician's | [place], [place] | | | | | [place], 3rd floor | [address] | | | | | [place], [place] | [phone] | | | | | [address] | | | | | | [phone] | | | +--------+ + + + [...] [address] | [place] | [phone] | | [facility] | | [address] | | + + + + + | [place] | [address] | [place] | | | [facility] | | [address] | | + + + + + [...] [address] | [facility] [place] | [phone] | | [facility] | | [address] | | + + + + + | [facility] | [address] | [place] | | | [facility] | | [address] | | + + + + + documented in this encounter Visit Diagnoses Not on filedocumented in this encounter"
--- OUTSIDE RECORDS SUMMARY | ~2020-04-27 | XMS | Encounter Summary ---
Demographics + + + | Address | [address] | | | [place] [address] | + + + | Home Phone [...] Team Providers + +------+ + | Care Utilization Management Manager Name | Role | Phone | [...] as of this encounter Progress Notes Interface, Fire Prevention Engineer In - 08/16/2006 1:10 AM PSTCLINIC [...] be requiring surgical intervention. Lloyd Garcia M.D. Mechanical Systems Designer of Orthopedics and Rehabilitation / [id number] / [id number] / [id number] / cc: Helio Noland M.D. Juan JoseJuan Jose [place], [place] [address]Mcdfeikjwedcts signed by Interface, Fire Prevention Engineer In at 08/16/2006 1: 10 AM PSTdocumented in this encounter Plan of Treatment Not on filedocumented as of this encounter Visit Diagnoses Not on filedocumented in this encounter"
--- OUTSIDE RECORDS SUMMARY | ~2020-04-27 | XMS | Encounter Summary ---
Demographics + + + | Address | [address] | | | [place] [address] | + + + | Home Phone [...] Team Providers + +------+ + | Care Hedis Nurse Name | Role | Phone | [...] as of this encounter Progress Notes Interface, Television Installer In - 09/15/2006 5:11 AM PSTCLINIC DATE: [...] M.D. Lloyd Garcia MD [email or web address] C: 04/26/99 [facility] cc: Matthew Garcia MD [address] [place], [place] [address]Ftwrgeuoxugsdw signed by Interface, Television Installer In at 09/15/2006 5:11 AM PSTInterface, Television Installer In - 09/13/2006 3:12 AM PSTCLINIC DATE: [...] evaluation and treatment recommendations. Lloyd Garcia M.D., Saturator, Orthopedics and Rehabilitation AH:x12 Electronically signed by Bill, Television Installer In at 1 11/14/2005 3:12 AM PSTdocumented in this encounter Plan of Treatment Not on filedocumented as of this encounter Visit Diagnoses Not on filedocumented in this encounter"
--- OUTSIDE RECORDS SUMMARY | ~2020-04-27 | XMS | Encounter Summary ---
Demographics + + + | Address | [address] | | | [place] [address] | + + + | Home Phone [...] Team Providers + +------+ + | Care Subpoena Server Name | Role | Phone | + [...] as of this encounter Progress Notes Interface, Accounts Payable Processor In - 09/15/2006 5:11 AM PSTCLINIC DATE: [...] M.D. Lloyd Garcia MD [email or web address] C: 04/26/99 [facility] cc: Matthew Garcia MD [address] [place], [place] [address]Mnfihvkohdxmob signed by Interface, Accounts Payable Processor In at 09/15/2006 5:11 AM PSTInterface, Accounts Payable Processor In - 09/13/2006 3:12 AM PSTCLINIC DATE: [...] evaluation and treatment recommendations. Lloyd Garcia M.D., Commercial Drone Software Developer, Orthopedics and Rehabilitation AH:x12 Electronically signed by Bill, Accounts Payable Processor In at 1 11/14/2005 3:12 AM PSTdocumented in this encounter Plan of Treatment Not on filedocumented as of this encounter Visit Diagnoses Not on filedocumented in this encounter"
--- OUTSIDE RECORDS SUMMARY | ~2020-04-27 | XMS | Encounter Summary ---
Demographics + + + | Address | [address] | | | [place] [address] | + + + | Home Phone [...] Team Providers + +------+ + | Care Sous Chef Name | Role | Phone | + [...] [place] | | | | | | [address] | | | | | | [phone] | | | +--------+ + + + [...]
--- OUTSIDE RECORDS SUMMARY | ~2020-04-27 | XMS | Encounter Summary ---
Demographics + + + | Address | [address] | | | [place] [address] | + + + | Home Phone [...] Team Providers + +------+ + | Care Spring Coverer Name | Role | Phone | + [...] | [facility] [address] | [address] | | | | | [address] | [place] [facility] | | | | | Mailcode: [id number] | [place], [place] | | | | | Phys[facility]ilion | [address] | | | | | [place], [place] | [phone] | | | | | [address] | | | | | | [phone] | | | +--------+ + + + [...]
--- OUTSIDE RECORDS SUMMARY | ~2020-04-27 | XMS | Encounter Summary ---
Demographics + + + | Address | [address] | | | [place] [address] | + + + | Home Phone [...] + +------+ + | Care Head Of Science Name | Role | Phone | + [...] as of this encounter Progress Notes Interface, Candy Cutter Machine In - 08/10/2006 3:02 AM PSTCLINIC DATE: [...] her own car and requires a large bwbge-xzunlqc-mdgm vehicle for her friends to insole filler her own. She is able to ambulate [...] adduction which is not painful. X-rays show bgqmmpvb-cv-sldfux right hip DJD with joint space narrowing asymmetrically and large marginal osteocytes, most notably superiorly, posteriorly, as well as inferiorly and less so anteriorly. Right knee x-rays show wgtf-ig-pauypnse degenerative changes. No radiopaque loose bodies. AP, lateral, and oblique views of the lumbosacral spine show ndrs-ae-tspizyge facet arthrosis at L3-L4, L4-L5, and L5-S1, right greater than left. Disk spaces are well maintained. There is no spondylolisthesis or spondylolysis. ASSESSMENT: Bvxkytkw-bv-htnbfe hypotrophic osteoarthritis of the right hip; ynzu-do-lbmlfjki degenerative changes of the right knee; and lzpx-ax-mmqkfvvl, right greater than left, lumbar and lumbosacral [...] the right hip. Lloyd Garcia M.D. / [id number] / [id number] / [id number] / [id number] C: 06/12/2000 otilia cc: JILLIAN TODD M.D. PJuan JoseOJuan Jose [place], [place] [address]Gdqnghkeocblea signed by Interface, Candy Cutter Machine In at 08/10/2006 3: 02 AM PSTdocumented in this encounter Plan of Treatment Not on filedocumented as of this encounter Visit Diagnoses Not on filedocumented in this encounter"
--- OUTSIDE RECORDS SUMMARY | ~2020-04-27 | XMS | Encounter Summary ---
Demographics + + + | Address | [address] | | | [place] [address] | + + + | Home Phone [...] Providers + +------+ + | Care Manager Behavior Name | Role | Phone | + [...]
--- OUTSIDE RECORDS SUMMARY | ~2020-04-27 | XMS | Encounter Summary ---
Demographics + + + | Address | [address] | | | [place] [address] | + + + | Home Phone [...] Providers + +------+ + | Care Head Mechanic Name | Role | Phone | [...] | | Surgery -Hand | [facility] | | | | | Surgery [address] | [place] [address] | | | | | [address] | | | | | | Mailcode: PP420 | | | | | | Physician[facility] Pavilion | | | | | | [place], [place] | | | | | | [address] | | | | | | [phone] | | | +--------+ + + + [...] + + + + | PRODUCT | [id number] | | [facility] | | | UNIT [...] + + + + + | [facility] DEPARTMENT OF | [address] | [place] [address] | | | PATHOLOGY | [address] | | | + + + + + | [facility] DEPARTMENT OF | [address] | [place] [address] | | | PATHOLOGY | [address] [...] + + + + | PRODUCT | [id number] | | [facility] | | | UNIT [...] + + + + + | [facility] DEPARTMENT OF | [address] [facility] | [place] [address] | | | PATHOLOGY | [address] | | | + + + + + | [facility] DEPARTMENT OF | [address] [facility] | [place] [address] | | | PATHOLOGY | [address] [...] + + + + + | [facility] | [address] | [place] [address] | | | PATHOLOGY | [address] | | | + + + + + | [facility] | [address] | [place] [address] | | | PATHOLOGY | [address] | | | + + + + + documented in this encounter Visit Diagnoses Not on filedocumented in this encounter"
--- OUTSIDE RECORDS SUMMARY | ~2020-04-27 | XMS | Encounter Summary ---
Demographics + + + | Address | [address] | | | [place] [address] | + + + | Home Phone [...] + + + | Casandra Smith | [address] | [place] | | + + + + + Care Team Providers + +------+ + | Care Tin Assorter Name | Role | Phone | + [...] as of this encounter Progress Notes Interface, Rn Field In - 04/28/2005 6:17 PM PDTClinic Date: [...] see us. She instead went to the [facility] emergency department, where she was seen and [...] a chance to get back home to [place]. We will call her tomorrow and reiterate how important it is that we take care of this fluid collection in her hip and try to get her better. Dori Wong. Lloyd Garcia M.D. Attending Physician /jamil P [phone] signed by Interface, Rn Field In at 04/28/2005 6:17 PM PDTdoc umented in this encounter Plan of Treatment Not on filedocumented as of this encounter Visit Diagnoses Not on filedocumented in this encounter"
--- OUTSIDE RECORDS SUMMARY | ~2020-04-27 | XMS | Encounter Summary ---
Demographics + + + | Address | [address] | | | [place] [address] | + + + | Home Phone [...] Providers + +------+ + | Care Director Drug Safety Name | Role | Phone | + [...] | [facility] | MEGAN Reddy [address] | | | | | [address] | [address] | | | | | Loop Physician's | [place], [place] | | | | | [place], 3rd floor | [address] | | | | | [place], [place] | [phone] | | | | | [address] | | | | | | [phone] | | | +--------+ + + + [...]
--- OUTSIDE RECORDS SUMMARY | ~2020-04-27 | XMS | Encounter Summary ---
Demographics + + + | Address | [address] | | | [place] [address] | + + + | Home Phone [...] Team Providers + +------+ + | Care Shear Tender Name | Role | Phone | [...] | unspecified | [address] | Rd [place], | | | | | whether | [place], [place] | [place] | | | | | generalized | [address] | [address] | | | | | or | Phone: | Phone: | | | | | localized, | [phone] | [phone] | | | | | pelvic | Fax: | Fax: | | | | | region and | [phone] | [phone] | | | | | thigh | | | | | | | Osteoarthrit | | | | | | | is of Hip | | | | | | | Procedures | | | | | | | [place] TOTAL HIP | | | | | | | | | | | | | | ARTHROPLASTY | | | | | | | [place] | | | | | | | RECONSTRUC | | | | | | | HIP | | | | | | | SOCKET,RESEC | | | | | | | FEM HEAD | | | | | | | [place] REMOVAL | | | | | | | OF ISCHIAL | | | | | | | [place] | | | | | | | [...] Pavilion | | | | | | [place], [place] | | | | | | [address] | | | | | | [phone] | | | +--------+---------+ + + + [...] by JORDY Germain. KALYAN COLBY MD [facility] [address] [place] [address] Mailcode: [id number] [place] [address] Tesfaye Haskins PA-C - 10/14/2008 [...] is being worked up now by a cd technician for this issue. OBJECTIVE: - On examination [...]
--- OUTSIDE RECORDS SUMMARY | ~2020-04-27 | XMS | Encounter Summary ---
Demographics + + + | Address | [address] | | | [place] [address] | + + + | Home Phone [...] Providers + +------+ + | Care Manager Diabetes Name | Role | Phone | + +------+ + | Marta Jenkins HEADING AND PRIMING OPERATOR | PCP | | + +------+ [...] | obesity | [address] | [facility] | | | | | ([facility]) | [facility] | for Health | | | | | Procedures | Rd | and Healing, | | | | | PHYSICAL | [place], [place] | [address], | | | | | THERAPY | [address] | 1st Floor | | | | | REFERRAL | Phone: | [place], [place] | | | | | | [phone] | [address] | | | | | | Fax: | Phone: | | | | | | [phone] | [phone] | | | | | | | Fax: | | | | | | | [phone] | +--------+--------+ + + + + Encounter Details +--------+ + + + + | Date | Type | Department | Care Team | Description | +--------+ + + + + | 11/19/ | Cephalometric Tracer | Digestive Health | Wanda López ACNP | Morbid obesity (HCC) | | 2019 | | Center at [facility] [address] | [address] | (Primary Dx) | | | | [facility] | [address] [place], | | | | | for Health and | [place] [address] | | | | | Rajiv, [address] | [phone] | | | | | [place], [place] | | | | | | [address] | | | | | | | [...]
--- OUTSIDE RECORDS SUMMARY | ~2020-04-27 | XMS | Encounter Summary ---
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 She is able to ambulate [...] adduction which is not painful. X-rays show qgvqplrq-ws-xuxirq right hip DJD with joint space narrowing asymmetrically and large marginal osteocytes, most notably superiorly, posteriorly, as well as inferiorly and less so anteriorly. Right knee x-rays show thez-xi-efepdvet degenerative changes. No radiopaque loose bodies. AP, lateral, and oblique views of the lumbosacral spine show dcno-yj-zubpijdq facet arthrosis at L3-L4, L4-L5, and L5-S1, right greater than left. Disk spaces are well maintained. There is no spondylolisthesis or spondylolysis. ASSESSMENT: Zekpeekv-bi-zyzxtx hypotrophic osteoarthritis of the right hip; yafn-il-akvejasf degenerative changes of the right knee; and qxhu-xx-rpknzwtd, right greater than left, lumbar and lumbosacral [...] the right hip. Lloyd Garcia M.D. / [id number] / [id number] / [id number] / [id number] C: 06/12/2000 otilia cc: JILLIAN TODD M.D. PJuan JoseOJuan Jose [place]RE [place], [place] [address]Iabfpvxtlzrood signed by Interface, Press Operator Carbon Products In at 08/10/2006 3: 02 AM PSTdocumented in this encounter Plan of Treatment Not on filedocumented as of this encounter Visit Diagnoses Not on filedocumented in this encounter"
--- OUTSIDE RECORDS SUMMARY | ~2020-04-27 | XMS | Encounter Summary ---
Demographics + + + | Address | [address] | | | [place] [address] | + + + | Home Phone [...] Team Providers + +------+ + | Care Vinyl Hanger Name | Role | Phone | + +------+ + | Marta Jenkins SECURITY INTELLIGENCE ANALYST | PCP | | + +------+ [...] | Jamie Mailcode: [address] [place], | | | | | [place], [place] | [place] [address] | | | | | [address] | | | | | | [phone] | | | +--------+ + + + [...]
--- OUTSIDE RECORDS SUMMARY | ~2020-04-27 | XMS | Encounter Summary ---
Demographics + + + | Address | [address] | | | [place] [address] | + + + | Home Phone [...] Providers + +------+ + | Care Chief Quality Officer Name | Role | Phone | + +------+ + PCP | Unavailable | + +------+ + Encounter Details +--------+ + + + + | Date | Type | Department | Care Team | Description | +--------+ + + + + | 09/14/ | Results | | Other, Faculty | | | 2002 | Only | | [phone] | | +--------+ + + + + [...] + | Ordered by JEFERSON CRONIN, . [id number] Patient unavailable, | | | specimen not obtained | | + + + + + + + + | Performing | Address | City/State/Zipcode | Phone Number | | Organization | | | | + + + + + | [facility] | [address] | [place] [address] | | | LABORATORY | | | [...] + | Ordered by JEFERSON CRONIN JR. [id number] Patient unavailable, | [facility] | | specimen not obtained | DEPARTMENT OF | | | PATHOLOGY | + + + + + + + + | Performing | Address | City/State/Zipcode | Phone Number | | Organization | | | | + + + + + | [facility] DEPARTMENT | [address] | [place] [address] | | | PATHOLOGY | [address] | | | + + + + + | [facility] | [address] | [place] [address] | | | PATHOLOGY | [address] [...] + | Ordered by JEFERSON CRONIN JR. [id number] Staff or dialysis draw | [facility] | | required. | DEPARTMENT OF | | | PATHOLOGY | + + + + + + + + | Performing | Address | City/State/Zipcode | Phone Number | | Organization | | | | + + + + + | [facility] DEPARTMENT OF | [address] | [place] [address] | | | PATHOLOGY | [address] | | | + + + + + | [facility] DEPARTMENT OF | [address] | [place] [address] | | | PATHOLOGY | [address] [...] [facility] DEPARTMENT OF | [address] | [place] [address] | | | PATHOLOGY | [address] | | | + + + + + | [facility] DEPARTMENT OF | [address] | [place] [address] | | | PATHOLOGY | [address] [...] + + + + + | [facility] | [address] | [place] [address] | | | PATHOLOGY | [address] | | | + + + + + | [facility] DEPARTMENT OF | [address] | [place] [address] | | | PATHOLOGY | [address] | | | + + + + + documented in this encounter Visit Diagnoses Not on filedocumented in this encounter"
--- OUTSIDE RECORDS SUMMARY | ~2020-04-27 | XMS | Encounter Summary ---
Demographics + + + | Address | [address] | | | [place] [address] | + + + | Home Phone [...] Team Providers + +------+ + | Care Noise Abatement Engineer Name | Role | Phone | [...] as of this encounter Progress Notes Interface, Sack Keeper In - 05/17/2006 3:10 AM PDTCLINIC DATE: [...] arthroplasty at that point. Lloyd Garcia M.D. Field Investigator, Orthopedics and Rehabilitation / [id number] / [id number] / [id number] / [id number] cc: Ninfa Guillen M.D. [address] [place] [id number] signed by Interface, Sack Keeper In at 05/17/2006 3:1 0 AM PDTInterface, Sack Keeper In - 05/17/2006 3:10 AM PDTCLINIC DATE: [...] MD Lloyd Causey M.D. SAMANTHA / SALEEM [id number] / [id number] / [id number] / Tdocumented in this encounter Plan of Treatment Not on filedocumented as of this encounter Visit Diagnoses Not on filedocumented in this encounter"
--- OUTSIDE RECORDS SUMMARY | ~2020-04-27 | XMS | Encounter Summary ---
Demographics + + + | Address | [address] | | | [place] [address] | + + + | Home Phone [...] Team Providers + +------+ + | Care Classroom Technology Technician Name | Role | Phone | [...] as of this encounter Discharge Summaries Interface, Patient Ombudsperson In - 03/06/2006 1:10 AM PDTAdmission Date: [...] time of discharge. She initially had a CORPORATE TRAVEL COORDINATOR that was weaned off as well as [...]
--- OUTSIDE RECORDS SUMMARY | ~2020-04-27 | XMS | Encounter Summary ---
Demographics + + + | Address | [address] | | | [place] [address] | + + + | Home Phone [...] Team Providers + +------+ + | Care Sprinkler Irrigation Equipment Mechanic Name | Role | Phone | [...]
--- OUTSIDE RECORDS SUMMARY | ~2020-04-27 | XMS | Encounter Summary ---
Demographics + + + | Address | [address] | | | [place] [address] | + + + | Home Phone [...] Team Providers + +------+ + | Care Industrial Electrical Technician Name | Role | Phone | [...] | | [address] | Y, Craft Coordinator | Morbid obesity with | | | | [place], [place] | | BMI of 50.0-59.9, | | | | [address] | | adult (HCC) | | | | [phone] | | | +--------+ + + + [...] [place] | | | | | | [address] | | | | | | | [...] | | | Absolute | performed at [facility];[address] | [address] | LAB | | | | [place] | | [facility] | | | | [address];[place] [address] | | LABORATORY | | + + + + + + + + | Specimen | + + | Blood | + + + + + + + | Performing | Address | City/State/Zipcode | Phone Number | | Organization | | | | + + + + + | REFERENCE LAB | [address] [facility] | [place] | [phone] | | [facility] | [address] | [address] | | | LABORATORY | | | | + + + + + | REFERENCE LAB | [address] [facility] [address] | [place] | | | [facility] | Blvd[address] | [address] | | | LABORATORY | | | [...] | | | | [address] [place] | | | | | | [address] | | | | + + + + + + + + | Specimen | + + | Blood | + + + + + + + | Performing | Address | City/State/Zipcode | Phone Number | | Organization | | | | + + + + + | REFERENCE LAB | [address] [place] [address] [address] | [place] | [phone] | | [facility] | Bl[address] | [address] | | | LABORATORY | | | | + + + + + | REFERENCE LAB | [address] | [place] | | | [facility] | Bl[address] | [address] | | | LABORATORY | | | | + + + + + [place] (07/29/2019 10:58 AM PDT) + + + + + + | Component | Value | Ref Range | Performed | Pathologist | | | | | At | Signature | + + + + + + | [place], | None DetectedComment: | 0.0 - 0.9 ug/L | REFERENCE | | | Ser/Plas | This test was developed | | LAB | | | | and its performance | | [facility] | | | | characteristicsdetermine | | LABORATORY | | | | d by [facility]. It has not | | | | [...] | | | | | performed at [facility], [address] | | | | | | [address] | | | | | | [place] [address] | | | | + + + + + + + + | Specimen | + + | Blood | + + + + + + + | Performing | Address | City/State/Zipcode | Phone Number | | Organization | | | | + + + + + | REFERENCE LAB | [address] [place] [address] | [place], [place] | [phone] | | [facility] | [address] | [address] | | | LABORATORY | | | | + + + + + | REFERENCE LAB | [address] [place] [address] | [place] | | | [facility] | Blvd[address] | [address] | | | LABORATORY | | | [...] | | [facility] | | | | [address];[place] [address] | | LABORATORY | | + + + + + + + + | Specimen | + + | Blood | + + + + + + + | Performing | Address | City/State/Zipcode | Phone Number | | Organization | | | | + + + + + | REFERENCE LAB | [address] [place] [address] | [place], [place] | [phone] | | [facility] | [address] | [address] | | | LABORATORY | | | | + + + + + | REFERENCE LAB | [address] [place] [address] | [place], [place] | | | [facility] | Blvd[address] | [address] | | | LABORATORY | | | [...] REFERENCE | | | | performed at [facility];[address] | | LAB | | | | [place] | | [facility] | | | | [address];[place] [address] | | LABORATORY | | + + + + + + + + | Specimen | + + | Blood | + + + + + + + | Performing | Address | City/State/Zipcode | Phone Number | | Organization | | | | + + + + + | REFERENCE LAB | [address] [place] [address] | [place], [place] | [phone] | | [facility] | Bl[address] | [address] | | | LABORATORY | | | | + + + + + | REFERENCE LAB | [address] [place] [address] | [place], [place] | | | [facility] | Blvd. | [address] | | | LABORATORY | | | [...] REFERENCE | | | | performed at [facility];[address] | | LAB | | | | [place] | | [facility] | | | | [address];[place] [address] | | LABORATORY | | + + + + + + + + | Specimen | + + | Blood | + + + + + + + | Performing | Address | City/State/Zipcode | Phone Number | | Organization | | | | + + + + + | REFERENCE LAB | [address] | [place] | [phone] | | [facility] | [address] | [address] | | | LABORATORY | | | | + + + + + | REFERENCE LAB | [address] | [place] | | | [facility] | Blvd[address] | [address] | | | LABORATORY | | | | + + + + + documented in this encounter Visit Diagnoses + + | Diagnosis | + + | Left hip pain Pain in joint, pelvic region and thigh | + + | Morbid obesity with BMI of 50.0-59.9, adult (HCC) | + + documented in this encounter"
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
--- OUTSIDE RECORDS SUMMARY | ~2020-04-27 | XMS | Encounter Summary ---
Demographics + + + | Address | [address] | | | [place] [address] | + + + | Home Phone [...] Providers + +------+ + | Care Litigation Specialist Name | Role | Phone | + +------+ + PCP | Unavailable | + +------+ + Encounter Details +--------+ + + + + | Date | Type | Department | Care Team | Description | +--------+ + + + + | 07/27/ | [place] | Orthopaedics at | Tesfaye Saenz | Osteoarthritis of | | 2007 | | [facility] [address] | MEGAN Evangelista | Hip; Hip Pain | | | | [address] | | | | | | Mailcode: PV430 | | | | | | [facility] | | | | | | [place], [place] | | | | | | [address] | | | | | | [phone] | | | +--------+ + + + [...]
--- OUTSIDE RECORDS SUMMARY | ~2020-04-27 | XMS | Encounter Summary ---
Demographics + + + | Address | [address] | | | [place] [address] | + + + | Home Phone [...] Providers + +------+ + | Care Data Administrator Name | Role | Phone | [...] Rd | | | | | | [place], [place] | | | | | | [address] | | | +--------+ + + + [...]
--- OUTSIDE RECORDS SUMMARY | ~2020-04-27 | XMS | Encounter Summary ---
Demographics + + + | Address | [address] | | | [place] [address] | + + + | Home Phone [...] Team Providers + +------+ + | Care Evaporator Operator Molasses Name | Role | Phone | + [...] | Diseases at [facility] | MEGAN Reddy [address] | | | | | [address] | [address] | | | | | Loop Physician's | [place], [place] | | | | | [place], 3rd floor | [address] | | | | | [place], [place] | [phone] | | | | | [address] | | | | | | [phone] | | | +--------+ + + + [...]
--- OUTSIDE RECORDS SUMMARY | ~2020-04-27 | XMS | Encounter Summary ---
Demographics + + + | Address | [address] | | | [place] [address] | + + + | Home Phone [...] Providers + +------+ + | Care Medical Researcher Name | Role | Phone | [...] Procedures | Pankaj Bergman | Roxann Ayala [facility] | | | | | CT INJ | Roxann Ayala [facility], | | | | | SACROILIAC | [place], [place] | 10th Floor | | | | | JOINT | [address] | [place], [place] | | | | | W/NEEDLE | Phone: | [phone] | | | | | PLCMT | [phone] | Phone: | | | | | | Fax: | [phone] | | | | | | [phone] | Fax: | | | | | | | [phone] | +--------+--------+ + + + + Encounter [...] | | | | | Roxann Ayala [facility] | | | | | | [address] | | | | | | [place], [place] | | | | | | [address] | | | | | | [phone] | | | +--------+ + + + [...] | | | | | | the customer support consultant. | | | | | | Structural Layout Worker imaging was | | | | | [...]
--- OUTSIDE RECORDS SUMMARY | ~2020-04-27 | XMS | Encounter Summary ---
Demographics + + + | Address | [address] | | | [place] [address] | + + + | Home Phone [...] Team Providers + +------+ + | Care Fourth Mate Name | Role | Phone | + [...] Pavilion | | | | | | [place], [place] | | | | | | [address] | | | | | | [phone] | | | +--------+ + + + [...] + + | Performing | Address | City/State/[facility] | Phone Number | | Organization | | | | + +---------+ + + | [facility] | | | | | [...] | | + +---------+ + + | [facility] OF | | | | | RADIOLOGY | | | | + +---------+ + + documented in this encounter Visit Diagnoses Not on filedocumented in this encounter"
--- OUTSIDE RECORDS SUMMARY | ~2020-04-27 | XMS | Encounter Summary ---
Demographics + + + | Address | [address] | | | [place] [address] | + + + | Home Phone [...] Team Providers + +------+ + | Care Induction Heat Treater Name | Role | Phone | [...] Pavilion | | | | | | [place], [place] | | | | | | [address] | | | | | | [phone] | | | +--------+ + + + [...] of | | | | | | Locs-Yeedoywfsuv-eyszdvf | | | | | | jose. [...] + +---------+ + + | [facility] DEPARTMENT OF | | | | | [...] + +---------+ + + | [facility] OF | | | | | [...] + +---------+ + + | [facility] DEPARTMENT | | | | | RADIOLOGY [...] + +---------+ + + | [facility] DEPARTMENT OF | | | | | RADIOLOGY | | | | + +---------+ + + documented in this encounter Visit Diagnoses Not on filedocumented in this encounter
--- OUTSIDE RECORDS SUMMARY | ~2020-04-27 | XMS | Encounter Summary ---
Demographics + + + | Address | [address] | | | [place] [address] | + + + | Home Phone [...] Team Providers + +------+ + | Care Superannuation Funds Manager Name | Role | Phone | [...] | | | | due to | [place] | | | | | unspecified | [address] | [address] | | | | | device, | Phone: | Phone: | | | | | implant, and | [phone] | [phone] | | | | | graft | Fax: | Fax: | | | | | | [phone] | [phone] | +--------+--------+ + + + + Encounter [...] | [address] | [facility] | (Primary Dx) | | | | Loop Physician's | [place], [place] | | | | | [place], 3rd floor | [address] | | | | | [place], [place] | [phone] | | | | | [address] | | | | | | [phone] | | | +--------+---------+ + + + [...] CLINIC FOLLOW UP Primary Care Physician: Carlos [address] [address] Ms. Galdamez presents to Infectious Diseases Clinic [...] 18, a nd was therefore admitted to [facility] out of concern for [...] discharged in stable condition on 10/22/2010 to [facility] with OPAT & Orthopedic follow-up planned in 2 weeks ti ny. Interim History obtained 11/17/2010: Ms. Galdamez presents [...] R hip incision has healed very well. [place] were removed locally, and there has been [...] as well as in shoes and socks. [place]-3 Fatty Acids-Vitamin E (FISH OIL) 1,000 mg [...] She will travel to her PCP in [place] in 1 weeks time for another PICC [...] a nd follow-up planning. Carolina Putnam PA-C [facility] Department of Infectious Disease Outpatient IV Antibiotic Therapy Clinic (OPAT) Pager ID: [phone] Mail Code A435 [place] [address] documented in th is encounter Plan of [...] | + + + + + | [facility] | [address] | [place] [address] | | | PATHOLOGY | [address] [...] At | + + + | [facility] ([facility]) | [facility] | | [facility] [address] | REGIONAL | | [place] [address] | LABORATORY | + + + + + + + + | Performing | Address | City/State/Zipcode | Phone Number | | Organization | | | | + + + + + | [facility] | [address] | [place] [address] | | | LABORATORY | | | [...] + + | [facility] DEPARTMENT OF | [address] | [place] [address] | | | PATHOLOGY | [address] [...] | | | DEPARTMENT | | | [place] | | | OF | | | [...] DEPARTMENT OF | [address] | [place] [address] | | | PATHOLOGY | [address] [...] | + + + + + | [facility] | [address] | [place] [address] | | | PATHOLOGY | [address] | | | + + + + + documented in this encounter Visit Diagnoses + + | Diagnosis | + + | 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
--- OUTSIDE RECORDS SUMMARY | ~2020-04-27 | XMS | Encounter Summary ---
Demographics + + + | Address | [address] | | | [place] [address] | + + + | Home Phone [...] Team Providers + +------+ + | Care Consumer Services Advisor Name | Role | Phone | [...] Terrence | | | | | | [place], [place] | | | | | | [address] | | | | | | [phone] | | | +--------+ + + + [...]
--- OUTSIDE RECORDS SUMMARY | ~2020-04-27 | XMS | Encounter Summary ---
Demographics + + + | Address | [address] | | | [place] [address] | + + + | Home Phone [...] Team Providers + +------+ + | Care Touch Up Worker Name | Role | Phone | [...] as of this encounter Progress Notes Interface, Coffee Host In - 08/06/2006 1:09 AM PSTCLINIC DATE: [...] provided by Dr. Noland. Lloyd Garcia M.D. Script Coordinator, Orthopedics and Rehabilitation / [id number] / [id number] / [id number] / [id number] cc: Helio Noland M.D. [address] [place], [place] [address]Uxnxeuxetahisb signed by Interface, Coffee Host In at 08/06/2006 1: 09 AM PSTdocumented in this encounter Plan of Treatment Not on filedocumented as of this encounter Visit Diagnoses Not on filedocumented in this encounter
--- OUTSIDE RECORDS SUMMARY | ~2020-04-27 | XMS | Encounter Summary ---
Demographics + + + | Address | [address] | | | [place] [address] | + + + | Home Phone [...] Team Providers + +------+ + | Care Fashion Director Name | Role | Phone | [...]
--- OUTSIDE RECORDS SUMMARY | ~2020-04-27 | XMS | Encounter Summary ---
Demographics + + + | Address | [address] | | | [place] [address] | + + + | Home Phone [...] Team Providers + +------+ + | Care Bee Raiser Name | Role | Phone | + [...] | | | | due to | [place] | | | | | unspecified | [address] | [address] | | | | | device, | Phone: | Phone: | | | | | implant, and | [phone] | [phone] | | | | | graft | Fax: | Fax: | | | | | | [phone] | [phone] | +--------+--------+ + + + + Encounter [...] | | | | [address] | [place] [address] | internal joint | | | | Physician's | [phone] | prosthesis (HCC) | | | | Pavilion, 4th floor | | (Primary Dx) | | | | [place], [place] | | | | | | [address] | | | | | | [phone] | | | +--------+---------+ + + + [...] CLINIC FOLLOW UP Referrring Physician: TYRONE COLBY [facility] Orthopedics [address] [place] [address] Primary Care Physician: [address] [address] Ms. Galdamez presents to Infectious Diseases Clinic [...] procedure. Indications : Staphylococcus Aureus Joint Infection [place]-3 Fatty Acids-Vitamin E (FISH OIL) 1,000 mg [...] above discussion. ALBINO TERESA MD INFECTIOUS DISEASES [address] [place] [address] Mailcode: L[address] [address] documented in this e ncounter [...]
--- OUTSIDE RECORDS SUMMARY | ~2020-04-27 | XMS | Encounter Summary ---
Demographics + + + | Address | [address] | | | [place] [address] | + + + | Home Phone [...] Team Providers + +------+ + | Care Oriental Medicine Practitioner Name | Role | Phone | [...] | | [address] | Roxann Ayala [place], | | | | | Mailcode: PV430 | [place] [address] | | | | | Phys[facility]'s Pavilion | | | | | | [place], [place] | | | | | | [address] | | | | | | [phone] | | | +--------+ + + + [...]
--- OUTSIDE RECORDS SUMMARY | ~2020-04-27 | XMS | Encounter Summary ---
Demographics + + + | Address | [address] | | | [place] [address] | + + + | Home Phone [...] Team Providers + +------+ + | Care Evaporative Cooler Installer Name | Role | Phone | [...] | Transcriptions | + + | Interface, Guest Relations Receptionist In - 09/19/2005 9:05 PM PST Date: | | 10/08/2003Attending Surgeon: Marguerite Araujo M.D.Rebeamer(s): | | Stas Menjivar M.D.Preoperative Diagnosis(es):Right hip [...] recoveryroom in stable condition.Marguerite Araujo, | | [facility] / [id number] / [id number] / [id number] / T: 10/08/2003 | |a clean granulating [...] | | | |JEMarcus / SALE[place] | |[id number] / [id number] / 88798 / | | | | | + + OPERATION RECORD (10/08/2003) + + | Transcriptions | + + | Interface, Guest Relations Receptionist In - 09/19/2005 9:05 PM PST Date: | | 10/08/2003Attending Surgeon: Lloyd Garcia M.D.Rebeamer(s): | | Benson Boone M.D. Stas Menjivar, [...] from the OR table to the [facility] with the hipsflexed and abduction pillow in place and | | brought from the Operating Room tothe Recovery Room in stable and satisfactory condition | | having tolerated theprocedure well without apparent complication. All counts were | | reportedcorrect prior to leaving the Operating Room. There were no apparenthypotensive | | episodes or other anesthetic difficulties.Lloyd Garcia M.D.Datapower Consultant, | | Orthopedics and Rehabilitation / [id number] / [id number] / 84612 / T: | | 10/08/2003 | |tube [...] | | | |Lloyd Garcia M.D. | |Datapower Consultant, Orthopedics and Rehabilitation | | | | / | |[id number] / [id number] / 75765 / | | | | | + + OPERATION RECORD (10/05/2003) + + | Transcriptions | + + | Interface, Guest Relations Receptionist In - 09/19/2005 9:05 PM PST Date: | | 10/05/2003Attending Surgeon: Lloyd Garcia M.D.Rebeamer(s): | | Benson Boone M.D.Preoperative Diagnosis(es):Right hip [...] | case.Benson Boone M.D.Lloyd Garcia M.D.RT / [id number] / [id number] / 95848 / [id number]: | | 10/05/2003T: 10/05/2003 | |flap for [...] | | | |RT / HS | |[id number] / [id number] / 86299 / 22093 | | | | | + + documented in this encounter Visit Diagnoses Not on filedocumented in this encounter"
--- OUTSIDE RECORDS SUMMARY | ~2020-04-27 | XMS | Encounter Summary ---
Demographics + + + | Address | [address] | | | [place] [address] | + + + | Home Phone [...] Providers + +------+ + | Care Stage Set Up Worker Name | Role | Phone [...] [address] | | | | | [address] | [place], [place] | | | | | [place], [facility] floor | [address] | | | | | [place], [place] | [phone] | | | | | [address] | | | | | | [phone] | | | +--------+ + + + [...]
--- OUTSIDE RECORDS SUMMARY | ~2020-04-27 | XMS | Encounter Summary ---
Demographics + + + | Address | [address] | | | [place] [address] | + + + | Home Phone [...] + +------+ + | Care Paste Up Worker Name | Role | Phone [...] | Diseases at [facility] | MEGAN Reddy [address] | | | | | [address] | [address] | | | | | Loop Physician's | [place], [place] | | | | | [place], 3rd floor | [address] | | | | | [place], [place] | [phone] | | | | | [address] | | | | | | [phone] | | | +--------+ + + + [...] [address] | [facility] | [phone] | | [facility] | | [address] | | + + + + + | [place] | [address] | [facility] | | | [facility] | | [address] | | + + + + + [...] [address] | [facility] | [phone] | | [facility] | | [address] | | + + + + + | [facility] | [address] | [facility] | | | [facility] | | [address] | | + + + + + documented in this encounter Visit Diagnoses Not on filedocumented in this encounter"
--- OUTSIDE RECORDS SUMMARY | ~2020-04-27 | XMS | Encounter Summary ---
Demographics + + + | Address | [address] | | | [place] [address] | + + + | Home Phone [...] Team Providers + +------+ + | Care Microbiology Lab Assistant Name | Role | Phone | + +------+ + | Yuki Pantoja MD | PCP | | + +------+ + Encounter Details +--------+ + + + + | Date | Type | Department | Care Team | Description | +--------+ + + + + | 06/21/ | Silverware Supervisor | Orthopaedics at | Kalyan Colby MD | Osteoarthritis of | | 2008 | | [facility] [address] | [address] | Hip (Primary Dx) | | | | [address] | [address] | | | | | Mailcode: PV430 | [place], [place] | | | | | Phys[facility] Pavilion | [address] | | | | | [place], [place] | [phone] | | | | | [address] | | | | | | [phone] | | | +--------+ + + + [...] X-RAY HIP 2 | Med Rec No: [id number] | | | | | VIEWS | Name: | | | | | RIGHT W/ | [place] | | | | | PELVIS 1 | Birthday: 1960 | | | | | VIEW | Sex: F | | | | | | Alias:Patient Location: | | | | | | [id number]: Outpatient | | | | | | [...] # | | | | | | [id number]:PELVIS | | | | | | ONE [...]
--- OUTSIDE RECORDS SUMMARY | ~2020-04-27 | XMS | Encounter Summary ---
Demographics + + + | Address | [address] | | | [place] [address] | + + + | Home Phone [...] Providers + +------+ + | Care Director Paid Media Name | Role | Phone | + [...] + + + + | [facility] DEPARTMENT | [address] [facility] | [place] [address] | | | PATHOLOGY | [address] | | | + + + + + | [facility] DEPARTMENT OF | [address] [facility] | [place] [address] | | | PATHOLOGY | [address] [...] DEPARTMENT OF | [address] | [place] [address] | | | PATHOLOGY | [address] | | | + + + + + | [place] DEPARTMENT OF | [address] | [place] [address] | | | PATHOLOGY | [address] [...] + | [facility] | [address] [facility] | [place] [address] | | | PATHOLOGY | [address] | | | + + + + + | [facility] DEPARTMENT OF | [address] [facility] | [place] [address] | | | PATHOLOGY | [address] [...] | [facility] | [address] | [place] [address] | | | PATHOLOGY | [address] | | | + + + + + | [facility] | [address] | [place] [address] | | | PATHOLOGY | [address] | | | + + + + + documented in this encounter Visit Diagnoses Not on filedocumented in this encounter"
--- OUTSIDE RECORDS SUMMARY | ~2020-04-27 | XMS | Encounter Summary ---
Demographics + + + | Address | [address] | | | [place] [address] | + + + | Home Phone [...] Team Providers + +------+ + | Care Erp Technical Lead Name | Role | Phone | [...] | SLEEP DISORDER 401 | [address] | | | | | [address] [place] | [place] | | | | | [place] [address] | [id number] | | | | | [phone] | | | +--------+--------+ + + + [...] [address] | | | | | | [address] | | | | | | | | +--------+---------+ + + + documented as of this encounter Visit Diagnoses + + | Diagnosis | + + | Obstructive sleep apnea (adult) (pediatric) - Primary | + + documented in this encounter"
--- OUTSIDE RECORDS SUMMARY | ~2020-04-27 | XMS | Encounter Summary ---
Demographics + + + | Address | [address] | | | [place] [address] | + + + | Home Phone [...] + +------+ + | Care Insurance Verification Clerk Name | Role | Phone | [...] | | | | [address] | [facility] | | | | | Mailcode: PV430 | [place], [place] | | | | | Physician's Pavilion | [address] | | | | | [place], [place] | [phone] | | | | | [address] | | | | | | [phone] | | | +--------+ + + + [...]
--- OUTSIDE RECORDS SUMMARY | ~2020-04-27 | XMS | Encounter Summary ---
Demographics + + + | Address | [address] | | | [place] [address] | + + + | Home Phone [...] + +------+ + | Care Head Of Insight Name | Role | Phone | + [...] as of this encounter Progress Notes Interface, Newspaper Carriers Supervisor In - 04/28/2006 3:06 AM PDTCLINIC DATE: 09/24/2002 ORTHOPEDIC CLINIC SUBJECTIVE: A 42-year-old obese female follows for right hip endstage degenerative joint disease. She returns to clinic today stating that her hip is bothering her again. Her last injection was 6 months ago in February 2002. It lasted approximately 5 months. She continues with a [facility]. She takes Celebrex, multivitamin, and uses a [...] fluoroscopically-guided hip injections closer to home in [place], [place], and come here when she fails to respond to schedule her total hip replacement at that time. She seems to prefer to drive across the [place] for her care. Lloyd Garcia M.D. Ward Attendant, Orthopedics and Rehabilitation / [id number] / [id number] / [id number] / 47512 cc: Ninfa Guillen M.D. [address] [place], [place] [address]Jwurbcqerenabi signed by Interface, Newspaper Carriers Supervisor In at 04/28/2006 3:0 6 AM PDTInterface, Newspaper Carriers Supervisor In - 04/28/2006 3:06 AM PDTCLINIC DATE: [...] have to return all the way to [facility] from [place], [place]. Shruti Manjarrez MD AM / [id number] / [id number] / 01242 / 96030 cc: Ninfa Guillen M.D. [address] [place], [place] [address]Usjnbvhuhvelfk signed by Interface, Newspaper Carriers Supervisor In at 04/28/2006 3:0 6 AM PDTdocumented in this encounter Plan of Treatment Not on filedocumented as of this encounter Visit Diagnoses Not on filedocumented in this encounter"
--- OUTSIDE RECORDS SUMMARY | ~2020-04-27 | XMS | Encounter Summary ---
Demographics + + + | Address | [address] | | | [place] [address] | + + + | Home Phone [...] Providers + +------+ + | Care Photo Mask Inspector Name | Role | Phone | [...] as of this encounter Progress Notes Interface, Pinmaker In - 08/20/2006 3:01 AM PSTCLINIC DATE: [...] views. Fox Chopra M.D. BETH / SALEEM [id number] / [id number] / [id number] / C: 02/18/2000 jerman Noland M.D. [place], [place] [address] [place] [address], [address] [place], [place] [address]Whnphakjyvbxbr signed by Interface, Pinmaker In at 08/20/2006 3:01 AM PSTInterface, Pinmaker In - 08/20/2006 3:01 AM PSTCLINIC DATE: [...] from her physical therapist, Rustam Sykes, at [facility] in [place], [place], which indicates that she has been [...] in any additional way at phone number [phone]. PHYSICAL EXAMINATION: Essentially unchanged from previous exams. [...] necessary at this point. Lloyd Garcia M.D. Fraud Investigator, Orthopedics and Rehabilitation / [id number] / [id number] / [id number] / cc: Hleio Noland MD [place], [place] [address] [place] [address] documented in this encounter Plan of Treatment Not on filedocumented as of this encounter Visit Diagnoses Not on filedocumented in this encounter"
--- OUTSIDE RECORDS SUMMARY | ~2020-04-27 | XMS | Encounter Summary ---
Demographics + + + | Address | [address] | | | [place] [address] | + + + | Home Phone [...] Providers + +------+ + | Care Adjunct History Instructor Name | Role | Phone | [...] as of this encounter Progress Notes Interface, Iron Miner In - 2006 1:06 AM PDTCLINIC DATE: 06/24/2003 ORTHOPEDIC CLINIC HISTORY: This is a 43-year-old obese female followed for right hip degenerative joint disease, returns to clinic today having had no relief after her last 2 fluoroscopically guided cortisone injections on October 05, 2002, and January 26, 2003. The x-rays at that time revealed dzfcgiqp-ot-ygiajehs degenerative joint disease. I confirmed that the [...] She does continue to drive in from [place] for her care here. She continues to [...] times per day. PHYSICAL EXAMINATION GENERAL: A vmylabqa-lr-nzixrunu obese short statured woman who ambulates with [...] authorization has been obtained. Lloyd Garcia M.D. Branch Service Representative of Orthopedics and Rehabilitation / [id number] / [id number] / [id number] / cc: Ninfa Guillen M.D. [address] [place] [address] [id number] signed by Interface, Iron Miner In at 2006 1:06 AM [facility] umented in this encounter Plan of Treatment Not on filedocumented as of this encounter Visit Diagnoses Not on filedocumented in this encounter"
--- OUTSIDE RECORDS SUMMARY | ~2020-04-27 | XMS | Encounter Summary ---
Demographics + + + | Address | [address] | | | [place] [address] | + + + | Home Phone [...] Providers + +------+ + | Care Laboratory Chemist Name | Role | Phone | + +------+ + PCP | Unavailable | + +------+ + Encounter Details +--------+ + + + + | Date | Type | Department | Care Team | Description | +--------+ + + + + | 06/24/ | Results | | Other, Faculty | | | 2000 | Only | | [phone] | | +--------+ + + + + [...] + + | [facility] | | | | | RADIOLOGY | | | | + +---------+ + + documented in this encounter Visit Diagnoses Not on filedocumented in this encounter"
--- OUTSIDE RECORDS SUMMARY | ~2020-04-27 | XMS | Encounter Summary ---
Demographics + + + | Address | [address] | | | [place] [address] | + + + | Home Phone [...] Providers + +------+ + | Care Laborer Airport Maintenance Name | Role | Phone | [...] | | | | | (sacroiliac) | [facility], | | | | | joint | Rd | 10th Floor | | | | | inflammation | [place], [place] | [place], [place] | | | | | ([facility]) | [address] | [address] | | | | | Procedures | | Phone: | | | | | CT INJ | | [phone] | | | | | SACROILIAC | | Fax: | | | | | JOINT | | [phone] | | | | | W/NEEDLE | [...] Surgery / | | Epic Dept | Tyrnoe Barrientos MD | | | | Orthopedics | | | [address] | | | | | | | [address] | | | | | | | [address] [place], | | | | | | | [place] | | | | | | | [address] | | | | | | | Phone: | | | | | | | [phone] | | | | | | | Fax: | | | | | | | [phone] | +--------+--------+ + + + + Encounter [...] | | | | Mailcode: [id number] | [place], [place] | ([facility]) | | | | [facility] | [address] | | | | | [place], [place] | [phone] | | | | | [address] | | | | | | [phone] | | | +--------+---------+ + + + [...] and plan of care. TYRONE COLBY MD [facility] [address] [facility] Mailcode: [id number] [facility] [phone] esfaye Saenz PA-C - 02/20/2010 3:15 PM [...] None. | | | | | | Back Tacker: Dr. Moss, | | | | | | radiology tech. | | | | | | Single Resource Boss: | | | | | | Sue [...] the | | | | | | respiratory support technician. Technical Implementation Lead | | | | | | imaging [...] | | | | FINAL / Dr. AVLAREZ | | | | | | KO [...]
--- OUTSIDE RECORDS SUMMARY | ~2020-04-27 | XMS | Encounter Summary ---
Demographics + + + | Address | [address] | | | [place] [address] | + + + | Home Phone [...] Providers + +------+ + | Care Medical Concierge Name | Role | Phone | + [...] | | | | Mailcode: [id number] | [place], [place] | | | | | [facility] | [address] | | | | | [facility] [place] | [phone] | | | | | [address] | | | | | | [phone] | | | +--------+ + + + [...]
--- OUTSIDE RECORDS SUMMARY | ~2020-04-27 | XMS | Encounter Summary ---
Demographics + + + | Address | [address] | | | [place] [address] | + + + | Home Phone [...] Team Providers + +------+ + | Care Costume Technician Name | Role | Phone | [...] of this encounter Progress Notes Interface, Office Service Coordinator In - 08/22/2006 5:13 AM PSTCLINIC DATE: [...] Valium. PHYSICAL EXAMINATION: She ambulates with a mpkqwukg-fp-msxzpz leg coxalgic gait leaning over the right [...] that they are appropriate. Lloyd Garcia MD Instrument Assembly Supervisor Department of Orthopaedics / [id number] / [id number] / [id number] / [id number] C: 01/19/2000 jerman cc: Helio Noland MD [place], [place] [id number] [place] [address] [id number] signed by Interface, Office Service Coordinator In at 08/22/2006 5:13 AM PSTdocumented in this encounter Plan of Treatment Not on filedocumented as of this encounter Visit Diagnoses Not on filedocumented in this encounter"
--- OUTSIDE RECORDS SUMMARY | ~2020-04-27 | XMS | Encounter Summary ---
Demographics + + + | Address | [address] | | | [place] [address] | + + + | Home Phone [...] Team Providers + +------+ + | Care Geographic Information Systems Manager Name | Role | Phone [...] | | Procedures | Rd | [address] [place], | | | | | CONSULT TO | [place], [place] | [place] [address] | | | | | ORTHOPEDICS | [address] | | | | | | AND [...] | | [address] | [address] Ayala [place], | | | | | Mailcode: PV430 | [place] [address] | | | | | [facility] | | | | | | [place], [place] | | | | | | [address] | | | | | | [phone] | | | +--------+---------+ + + + [...] as of this encounter Progress Notes Interface, Bus Matron In - 10/05/2006 2:33 AM PST [id number] CHAD Osei [id number] Clinic Date: 10/02/2006 Clinic: Orthopaedics Shelby Galdamez [...] Acevedo. Gino Baker M.D. KEE / SALEEM [id number] / [id number] / [id number] / [id number] cc: Quintin Tirado Electronically signed by Gino [...]
--- OUTSIDE RECORDS SUMMARY | ~2020-04-27 | XMS | Encounter Summary ---
Demographics + + + | Address | [address] | | | [place] [address] | + + + | Home Phone [...] Team Providers + +------+ + | Care Terrazzo Worker Name | Role | Phone | [...] of this encounter Progress Notes Interface, Supervisor Mending In - 06/19/2006 1:01 AM PDT [place] [facility] and [place] [address] [address] [address] FAX Department of Orthopaedics, [employer] [id number] September 16, 2001 Kalyan Wu M.D. Department of Orthopedics and Rehabilitation [facility] RE: SHELBY GALDAMEZ MR #: [id number] DOS: 09/16/2001 Dear Nasir: I am referring [...] contact me directly. Sincerely, Lloyd Garcia M.D. Woodyard Operator Orthopedics and Rehabilitation / [id number] / [id number] / [id number] / [id number] C: 10/02/2001 [facility] cc: Helio Mann M.D. P.OJuan Jose [address] [id number] signed by Interface, Supervisor Mending In at 06/19/2006 1: 01 AM PDTdocumented in this encounter Plan of Treatment Not on filedocumented as of this encounter Visit Diagnoses Not on filedocumented in this encounter"
--- OUTSIDE RECORDS SUMMARY | ~2020-04-27 | XMS | Encounter Summary ---
Demographics + + + | Address | [address] | | | [place] [address] | + + + | Home Phone [...] Team Providers + +------+ + | Care Theatre Instructor Name | Role | Phone | [...] | [facility] | MEGAN Reddy [address] | | | | | [address] | [address] | | | | | Loop Physician's | [place], [place] | | | | | [place], 3rd floor | [address] | | | | | [place], [place] | [phone] | | | | | [address] | | | | | | [phone] | | | +--------+ + + + [...] CELL | 7.8 | K/cu mm | [facility] | | | COUNT | | | MEDICAL | | | | | | CENTER - | | | | | | [place] | | + +-------+ + + + | RED CELL | 4.86 | M/cu mm | [facility] | | | COUNT | | | MEDICAL | | | | | | CENTER - | | | | | | [place] | | + +-------+ + + + | HEMOGLOBIN | 14.1 | 12.1999 - 15 | [facility] | | | | | g/dL | MEDICAL | | | | | | CENTER - | | | | | | [place] | | + +-------+ + + + | HEMATOCRIT | 41.2 | % | [facility] | | | | | | MEDICAL | | | | | | [facility] - | | | | | | [place] | | + +-------+ + + + | MCV | 85 | fL | [facility] | | | | | | MEDICAL | | | | | | [facility]ENTER - | | | | | | [place] | | + +-------+ + + + | MCH | 29 | pg | [facility] | | | | | | MEDICAL | | | | | | [facility]ENTER - | | | | | | [place] | | + +-------+ + + + | MCHC | 34.2 | g/dL | [facility] | | | | | | MEDICAL | | | | | | [facility] - | | | | | | [place] | | + +-------+ + + + | PLATELET | 367 | K/cu mm | [facility] | | | COUNT | | | MEDICAL | | | | | | CENTER - | | | | | | [place] | | + +-------+ + + + | NEUTROPHIL | 59.2 | % | [facility] | | | % | | | MEDICAL | | | | | | [facility] - | | | | | | [place] | | + +-------+ + + + | LYMPHOCYTE | 32.5 | % | [facility] | | | % | | | MEDICAL | | | | | | [facility] - | | | | | | [place] | | + +-------+ + + + | MONOCYTE % | 6.1 | % | [facility] | | | | | | MEDICAL | | | | | | [facility] - | | | | | | [place] | | + +-------+ + + + | EOS % | 1.5 | % | [facility] | | | | | | MEDICAL | | | | | | [facility] - | | | | | | [place] | | + +-------+ + + + | BASO % | 0.7 | % | [facility] | | | | | | MEDICAL | | | | | | [facility] - | | | | | | [place] | | + +-------+ + + + | RDW | 14.5 | % | [facility] | | | | | | MEDICAL | | | | | | [facility] - | | | | | | [place] | | + +-------+ + + + | MPV | | fL | [facility] | | | | | MEDICAL | | | | | | [facility] - | | | | | | [place] | | + +-------+ + + + | NEUTROPHIL | 4.6 | K/cu mm | [facility] | | | # | | | MEDICAL | | | | | | [facility] - | | | | | | [place] | | + +-------+ + + + | LYMPHOCYTE | 2.5 | K/cu mm | [facility] | | | # | | | MEDICAL | | | | | | [facility] - | | | | | | [place] | | + +-------+ + + + | MONOCYTE # | 0.5 | K/cu mm | [facility] | | | | | | MEDICAL | | | | | | [facility] - | | | | | | [place] | | + +-------+ + + + | EOS # | 0.1 | K/cu mm | [facility] | | | | | | MEDICAL | | | | | | [facility] - | | | | | | [place] | | + +-------+ + + + | BASO # | 0.1 | | [facility] | | | | | | MEDICAL | | | | | | CENTER - | | | | | | [place] | | + +-------+ + + + | PHOSPHORUS, | 3.9 | mg/dL | [facility] | | | PLASMA | | | [...] | + + + + + | [facility] | [address] | [place] [address] | | | C[facility] - [place] | | | | + + + + + COMPLETE METABOLIC SET (NA,K,CL,CO2,BUN,CREAT,GLUC,CA,AST,ALT,BILI TOTAL,ALK PHOS,ALB,PROT TOTAL) (03/01/2011 9:55 AM PDT) + +-------+ + + + | Component | Value | Ref Range | Performed | Pathologist | | | | | At | Signature | + +-------+ + + + | GLUCOSE, | 106 | 65 - 110 mg/dL | [facility] | | | PLASMA | | | MEDICAL | | | (LAB) | | | CENTER - | | | | | | [place] | | + +-------+ + + + | BUN, PLASMA | 10 | mg/dL | [facility] | | | (LAB) | | | MEDICAL | | | | | | CENTER - | | | | | | [place] | | + +-------+ + + + | CREATININE | 0.7 | mg/dL | [facility] | | | PLASMA | | | MEDICAL | | | (LAB) | | | CENTER - | | | | | | [place] | | + +-------+ + + + | TOTAL | 7.4 | g/dL | [facility] | | | PROTEIN, | | | MEDICAL | | | PLASMA | | | CENTER - | | | (LAB) | | | [place] | | + +-------+ + + + | ALBUMIN, | 3.8 | g/dL | [facility] | | | PLASMA | | | MEDICAL | | | (LAB) | | | CENTER - | | | | | | [place] | | + +-------+ + + + | CALCIUM, | 9.2 | mg/dL | [facility] | | | PLASMA | | | MEDICAL | | | (LAB) | | | CENTER - | | | | | | [place] | | + +-------+ + + + | BILIRUBIN | 0.3 | Transcutaneous | [facility] | | | TOTAL | | Bilirubinometer | MEDICAL | | | | | | CENTER - | | | | | | [place] | | + +-------+ + + + | ALK PHOS | 72 | U/L | [facility] | | | | | | MEDICAL | | | | | | CENTER - | | | | | | [place] | | + +-------+ + + + | AST(SGOT) | 10 | U/L | [facility] | | | | | | MEDICAL | | | | | | CENTER - | | | | | | [place] | | + +-------+ + + + | SODIUM, | 141 | mmol/L | [facility] | | | PLASMA | | | MEDICAL | | | (LAB) | | | CENTER - | | | | | | [place] | | + +-------+ + + + | POTASSIUM, | 4.4 | mmol/L | [facility] | | | PLASMA | | | MEDICAL | | | (LAB) | | | CENTER - | | | | | | [place] | | + +-------+ + + + | CHLORIDE, | 107 | mmol/L | [facility] | | | PLASMA | | | MEDICAL | | | (LAB) | | | CENTER - | | | | | | [place] | | + +-------+ + + + | TOTAL CO2, | 30 | mmol/L | [facility] | | | PLASMA | | | MEDICAL | | | (LAB) | | | CENTER - | | | | | | [place] | | + +-------+ + + + | ALT (SGPT) | 14 | U/L | [facility] | | | | | | MEDICAL | | | | | | CENTER - | | | | | | [place] | | + +-------+ + + + | SEDIMENTATI | 29 | mm/hr | [facility] | | | ON RATE | | [...] | + + + + + | [facility] | [address] | [place] [address] | | | [facility] [place] | | | | + + + + + documented in this encounter Visit Diagnoses Not on filedocumented in this encounter"
--- OUTSIDE RECORDS SUMMARY | ~2020-04-27 | XMS | Encounter Summary ---
Demographics + + + | Address | [address] | | | [place] [address] | + + + | Home Phone [...] Team Providers + +------+ + | Care Molder Machine Name | Role | Phone | + +------+ + | Travis Mcginnis MD | PCP | | + +------+ + Encounter Details +--------+ + + + + | Date | Type | Department | Care Team | Description | +--------+ + + + + | 10/14/ | Results | LAB REFERRED TESTS | Other, Faculty | | | 2010 | Only | [address] [facility] | [phone] | | | | | [address] | | | | | | [place] | | | | | | [address] | | | +--------+ + + + [...] + + | [facility] | [address] | [place], [place] | | | CARDIOLOGY | [address] | [address] | | + + + + + documented in this encounter Visit Diagnoses Not on filedocumented in this encounter"
--- OUTSIDE RECORDS SUMMARY | ~2020-04-27 | XMS | Encounter Summary ---
Demographics + + + | Address | [address] | | | [place] [address] | + + + | Home Phone [...] Team Providers + +------+ + | Care Furniture Salesperson Name | Role | Phone | + [...] of this encounter Progress Notes Interface, Lead Shop Operator In - 09/15/2006 5:11 AM PSTCLINIC [...] M.D. Lloyd Garcia MD LLP:[email or web address] C: 04/26/99 [facility] cc: Matthew Garcia MD [address] [place], [place] [address]Jycpnvapsskrge signed by Interface, Lead Shop Operator In at 09/15/2006 5:11 AM PSTInterface, Lead Shop Operator In - 09/13/2006 3:12 AM PSTCLINIC [...] evaluation and treatment recommendations. Lloyd Garcia M.D., Enterprise Application Developer, Orthopedics and Rehabilitation [email or web address] Electronically signed by Bill, Lead Shop Operator In at 1 11/14/2005 3:12 AM PSTdocumented in this encounter Plan of Treatment Not on filedocumented as of this encounter Visit Diagnoses Not on filedocumented in this encounter"
--- OUTSIDE RECORDS SUMMARY | ~2020-04-27 | XMS | Encounter Summary ---
Demographics + + + | Address | [address] | | | [place] [address] | + + + | Home Phone [...] Providers + +------+ + | Care Glassware Engraver Name | Role | Phone | + [...] as of this encounter Progress Notes Interface, Financial Analysis Manager In - 04/28/2005 10:57 PM PDTClinic Date: [...] resolved, and she attributes to eating a [place] pork and vegetable lap dish called [employer]. Physical Examination General: Shelby is in good [...] drain is in place. Lloyd Garcia M.D. Paper Guillotine Operator-Orthopedics and Rehabilitation / SALEEM [id number] / [id number] / [id number] / cc: Everett Guillen M.D. [address] [place] [id number] signed by Interface, Financial Analysis Manager In at 04/28/2005 10:57 PM PDTdocumented in this encounter Plan of Treatment Not on filedocumented as of this encounter Visit Diagnoses Not on filedocumented in this encounter"
--- OUTSIDE RECORDS SUMMARY | ~2020-04-27 | XMS | Encounter Summary ---
Demographics + + + | Address | [address] | | | [place] [address] | + + + | Home Phone [...] Team Providers + +------+ + | Care Automatic Lathe Tender Name | Role | Phone | [...] as of this encounter Progress Notes Interface, Letter Carrier In - 07/18/2006 3:04 AM PDTCLINIC DATE: [...] further treatment options. Brigette Lim P.A.-C / [id number] / [id number] / [id number] / Tdocumented in this encounter Plan of Treatment Not on filedocumented as of this encounter Visit Diagnoses Not on filedocumented in this encounter"
--- OUTSIDE RECORDS SUMMARY | ~2020-04-27 | XMS | Encounter Summary ---
Demographics + + + | Address | [address] | | | [place] [address] | + + + | Home Phone [...] Team Providers + +------+ + | Care System Architect Name | Role | Phone | + +------+ + PCP | Unavailable | + +------+ + Encounter Details +--------+ + + + + | Date | Type | Department | Care Team | Description | +--------+ + + + + | 12/23/ | Nuclear Power Reactor Operator | Orthopaedics at | Gino Baker MD | Osteoarthritis of | | 2006 | | [facility] [address] | [address] | Hip (Primary Dx) | | | | [address] | [address] Ayala [place] | | | | | Mailcode: PV430 | [place] [address] | | | | | [facility] | | | | | | [place], [place] | | | | | | [address] | | | | | | [phone] | | | +--------+ + + + [...]
--- OUTSIDE RECORDS SUMMARY | ~2020-04-27 | XMS | Encounter Summary ---
Demographics + + + | Address | [address] | | | [place] [address] | + + + | Home Phone [...] Team Providers + +------+ + | Care Rcis Name | Role | Phone | + [...] + + | 07/29/ | Office | [facility] | Xiang Sepulveda, | ABDOMINAL | | 2019 | Visit | [facility] | DO [address] | PAIN-GENERALIZED | | | | DOLOROLOGY [address] | [facility] [place] | (Primary Dx); Other | | | | [address] | [address] | chronic pain; DDD | | | | [place], [place] | | (degenerative disc | | | | [address] | | disease), lumbar; | | | | [phone] | | Facet arthropathy, | | | [...] general activity) Total score: (Printable questionnaires in Bulgarian ) Interpretation of Total Score: PEG scores are used to track changes over time. It should de crease after therapy has begun. Last 4 PEG Scores: No flowsheet data found. Opioid Risk Tool (ORT): Total Score Pulse: 96 BP: 184/84 SpO2: 99 % (From Chronic Pain tab; printable questionnaires in Bulgarian) Interpretation of Total Score: 0 to 3 [...] ; Surg andrés: Rustam Schmid MD; Location: [facility] MAIN [place] Review of Systems Objective: Vital [...] reviewed, listed controlled substances are consistent with [facility] prescriptions and patient reported use. [...] to physical therapy, massage therapy, acupuncture, care professionals, along with jabari mmended psychological counseling, either [...] weeks. This document has been created using [employer] Voice Recognition software and [employer]. The entry has been reviewed for content and accuracy, but there may still exist "sound alike" assistant center director word errors and/or unintended additions and deletions. [...] RODRIGUEZ | | | | | | [id number] | | | | | | | [...]
--- OUTSIDE RECORDS SUMMARY | ~2020-04-27 | XMS | Encounter Summary ---
Demographics + + + | Address | [address] | | | [place] [address] | + + + | Home Phone [...] Providers + +------+ + | Care Pediatric Anesthesiologist Name | Role | Phone | + [...] | Transcriptions | + + | Interface, Vascular Manager In - 02/27/2006 3:05 AM PDT Date: | | 09/27/2003Attending Surgeon: Lloyd Garcia M.D.Vice President Of Operations(s): | | Benson Boone M.D.Preoperative Diagnosis:Right hip [...] Boone M.D.Lloyd Garcia M.D.RT / | | [id number] / [id number] / [id number] / [id number]: 09/27/2003T: 09/28/2003 | |( ) which was [...] | | | |RT / HS | |[id number] / [id number] / [id number] / [id number] | | | | | + + OPERATION RECORD (09/25/2003) + + | Transcriptions | + + | Interface, Vascular Manager In - 02/27/2006 3:05 AM PDT Date: | | 09/25/2003Attending Surgeon: Lloyd Garcia M.D.Vice President Of Operations(s): | | MD Fox Gold, | | [...] | [facility]duction [facility] | | [...] thenbrought back to Operating Room #7 at [facility] | | [place].General endotracheal anesthesia was administered. Antibiotics werewithheld | [...] | procedure well without apparent complications.Lloyd Garcia M.D.Composite Worker, | | Orthopedics and Rehabilitation / [id number] / [id number] / [id number] / [id number]: 09/25/2003T: | | 09/26/2003 | |plate and [...] back to Operating Room #7 at [facility]. | |General endotracheal anesthesia was administered. [...] | | | |Lloyd Garcia M.D. | |Composite Worker, Orthopedics and Rehabilitation | | | | / | |[id number] / [id number] / [id number] / [id number] | | | | | + + documented in this encounter Visit Diagnoses Not on filedocumented in this encounter"
--- OUTSIDE RECORDS SUMMARY | ~2020-04-27 | XMS | Encounter Summary ---
Demographics + + + | Address | [address] | | | [place] [address] | + + + | Home Phone [...] Team Providers + +------+ + | Care Rv Repair Technician Name | Role | Phone | [...] as of this encounter Progress Notes Interface, Field Director In - 08/28/2006 3:05 AM PSTCLINIC DATE: [...] to Dr. Gant. Benson Cooper M.D. / [id number] / [id number] / [id number] / [id number] C: 11/27/1999 [facility] cc: Helio Noland M.D. [facility] [address] Lloyd Garcia M.D. Department of Orthopedics documented in this encounter Plan of Treatment Not on filedocumented as of this encounter Visit Diagnoses Not on filedocumented in this encounter"
--- OUTSIDE RECORDS SUMMARY | ~2020-04-27 | XMS | Encounter Summary ---
Demographics + + + | Address | [address] | | | [place] [address] | + + + | Home Phone [...] Team Providers + +------+ + | Care Collet Maker Name | Role | Phone | [...] of this encounter Progress Notes Interface, Car Scrubber In - 04/28/2005 8:48 PM PDTClinic Date: [...] well but presented to the ER in [place] approximately a week and half ago with [...] up with her primary care doctor in [place] and return to clinic and see me on an as-needed basis only. Lloyd Garcia M.D. Engravings Polisher, Orthopedics and Rehabilitation / [id number] / [id number] / [id number] / [id number] cc: Dr. Pearce [facility] [address] [place] [address] Rinaldi M.D. [address] [place] [address], [place] [address]Zgswsgyskpaevc signed by Interface, Car Scrubber In at 04/28/2005 8:4 8 PM PDTdocumented in this encounter Plan of Treatment Not on filedocumented as of this encounter Visit Diagnoses Not on filedocumented in this encounter"
--- OUTSIDE RECORDS SUMMARY | ~2020-04-27 | XMS | Encounter Summary ---
Demographics + + + | Address | [address] | | | [place] [address] | + + + | Home Phone [...] Providers + +------+ + | Care Oncology Nurse Navigator Name | Role | Phone | + [...] [address] | | | | | [address] | [place], [place] | | | | | [place], [facility] | [address] | | | | | [place], [place] | [phone] | | | | | [address] | | | | | | [phone] | | | +--------+ + + + [...]
--- OUTSIDE RECORDS SUMMARY | ~2020-04-27 | XMS | Encounter Summary ---
Demographics + + + | Address | [address] | | | [place] [address] | + + + | Home Phone [...] Team Providers + +------+ + | Care Scale Technician Name | Role | Phone | + +------+ + | Marta Jenkins HEADWAITRESS | PCP | | + +------+ + Encounter Details +--------+ + + + + | Date | Type | Department | Care Team | Description | +--------+ + + + + | 11/19/ | Documentati | Digestive Health | Clinic, Surgery | | | 2019 | on | Center at [facility] [address] | | | | | | [address] [facility] | | | | | | for Health and | | | | | | Healing, [address] | | | | | | [place], [place] | | | | | | [address] | | | | | | [phone] | | | +--------+ + + + [...]
--- OUTSIDE RECORDS SUMMARY | ~2020-04-27 | XMS | Encounter Summary ---
Demographics + + + | Address | [address] | | | [place] [address] | + + + | Home Phone [...] Team Providers + +------+ + | Care Transcriptionist Name | Role | Phone | + [...] | | | | Mailcode: [id number] | [place], [place] | | | | | [facility] | [address] | | | | | [place], [place] | [phone] | | | | | [address] | | | | | | [phone] | | | +--------+ + + + [...]
--- OUTSIDE RECORDS SUMMARY | ~2020-04-27 | XMS | Encounter Summary ---
Demographics + + + | Address | [address] | | | [place] [address] | + + + | Home Phone [...] Providers + +------+ + | Care Cargo Service Agent Name | Role | Phone | [...] | | | | Mailcode: [id number] | [place], [place] | | | | | [facility] | [address] | | | | | [place], [place] | [phone] | | | | | [address] | | | | | | [phone] | | | +--------+ + + + [...]
--- OUTSIDE RECORDS SUMMARY | ~2020-04-27 | XMS | Encounter Summary ---
Demographics + + + | Address | [address] | | | [place] [address] | + + + | Home Phone [...] Team Providers + +------+ + | Care Mission Support Specialist Name | Role | Phone | [...] floor | | | | | | [place], [place] | | | | | | [address] | | | | | | [phone] | | | +--------+------+ + + + [...] + + | [facility] DEPARTMENT OF | [facility] | [place] [address] | | | PATHOLOGY | [address] | | | + + + + + | [place] DEPARTMENT OF | [address] [facility] | [place] [address] | | | PATHOLOGY | [address] [...] DEPARTMENT OF | [address] | [place] [address] | | | PATHOLOGY | [address] | | | + + + + + | [facility] DEPARTMENT OF | [address] | [place] [address] | | | PATHOLOGY | [address] [...] | + + + + + | [facility] DEPARTMENT | [address] [facility] | [place] [address] | | | PATHOLOGY | [address] | | | + + + + + | [facility] DEPARTMENT | [address] [facility] | [place] [address] | | | PATHOLOGY | [address] [...] | + + + + + | [facility] DEPARTMENT OF | [address] | [place] [address] | | | PATHOLOGY | [address] | | | + + + + + | [facility] DEPARTMENT OF | [address] | [place] [address] | | | PATHOLOGY | [address] [...] Lab) [facility] | | | [place] [address] | | | [place] [address] | | + + + + + + + + | Performing | Address | City/State/Zipcode | Phone Number | | Organization | | | | + + + + + | [facility] | [address] | [place] [address] | | | LABORATORY | | | | + + + + + documented in this encounter Visit Diagnoses + + | Diagnosis | + + | Hip pain Pain in joint, pelvic region and thigh | + + | Hip replacement Hip joint replacement by other means | + + documented in this encounter"
--- OUTSIDE RECORDS SUMMARY | ~2020-04-27 | XMS | Encounter Summary ---
Demographics + + + | Address | [address] | | | [place] [address] | + + + | Home Phone [...] + +------+ + | Care Instructional Design Specialist Name | Role | Phone | [...] W | | | | ON | [facility] 4th Floor [address] | [address] | | | | | [address] | Road [place], [place] | | | | | Mailcode: [id number] | [address] | | | | | [facility] | | | | | | and Healing, | | | | | | Building 1,4th Floor | | | | | | [place], [place] | | | | | | [address] | | | | | | [phone] | | | +--------+ + + + [...]
--- OUTSIDE RECORDS SUMMARY | ~2020-04-27 | XMS | Encounter Summary ---
Demographics + + + | Address | [address] | | | [place] [address] | + + + | Home Phone [...] Team Providers + +------+ + | Care Heat And Frost Insulator Name | Role | Phone | + [...] as of this encounter Discharge Summaries Interface, Drafter Tool Design In 04/28/2005 5:10 PM PDTAdmission Date: 09/25/2003 [...]
--- OUTSIDE RECORDS SUMMARY | ~2020-04-27 | XMS | Encounter Summary ---
Demographics + + + | Address | [address] | | | [place] [address] | + + + | Home Phone [...] Team Providers + +------+ + | Care Dealer Account Manager Name | Role | Phone [...] | Transcriptions | + + | Interface, Drum Attendant In - 09/19/2005 9:05 PM PST Date: | | 09/29/2003Attending Surgeon: Lloyd Garcia M.D.Cone Runner(s): | | Benson Boone M.D.Preoperative Diagnosis:Right greater [...] Boone M.D.Lloyd | | Sierra Garcia.RT / [id number] / [id number] / [id number] / [id number]: 10/21/2003T: 10/22/2003 | |where she had a [...] | | | |RT / HS | |[id number] / [id number] / [id number] / 39305 | | | | | + + documented in this encounter Visit Diagnoses Not on filedocumented in this encounter"
--- OUTSIDE RECORDS SUMMARY | ~2020-04-27 | XMS | Encounter Summary ---
Demographics + + + | Address | [address] | | | [place] [address] | + + + | Home Phone [...] Providers + +------+ + | Care Surveillance Systems Engineer Name | Role | Phone [...] | Transcriptions | + + | Interface, Whipper In - 02/27/2006 3:05 AM PDT Date: | | 09/27/2003Attending Surgeon: Lloyd Garcia M.D.Senior Licensing Manager(s): | | Besnon Boone M.D.Preoperative Diagnosis:Right hip | | infection.Postoperative [...] Boone M.D.Lloyd Garcia M.D.RT / | | [id number] / [id number] / [id number] / [id number]: 09/27/2003T: 09/28/2003 | |( ) which was [...] | | | |RT / HS | |[id number] / [id number] / 16343 / 16922 | | | | | + + OPERATION RECORD (09/25/2003) + + | Transcriptions | + + | Interface, Whipper In - 02/27/2006 3:05 AM PDT Date: | | 09/25/2003Attending Surgeon: Lloyd Garcia M.D.Senior Licensing Manager(s): | | MD [place], | | [...] | [facility]duction [facility] | [...] thenbrought back to Operating Room #7 at [facility] | | [place].General endotracheal anesthesia was administered. Antibiotics werewithheld | [...] | procedure well without apparent complications.Lloyd Garcia M.D.Bender Machine Operator, | | Orthopedics and Rehabilitation / [id number] / [id number] / [id number] / 15035V: 09/25/2003T: | | 09/26/2003 | |plate and [...] |brought back to Operating Room #7 at [facility]. | |General endotracheal anesthesia was administered. [...] | | | |Lloyd Garcia M.D. | |Bender Machine Operator, Orthopedics and Rehabilitation | | | | / | |[id number] / [id number] / 12902 / [id number] | | | | | + + documented in this encounter Visit Diagnoses Not on filedocumented in this encounter"
--- OUTSIDE RECORDS SUMMARY | ~2020-04-27 | XMS | Encounter Summary ---
Demographics + + + | Address | [address] | | | [place] [address] | + + + | Home Phone [...] Team Providers + +------+ + | Care Railway Signal Technician Name | Role | Phone | [...] | Procedures | Roxann Ayala | [place], | | | | | CONSULT TO | [place], [place] | [place] | | | | | ORTHOPEDICS | | | | | | | AND | Phone: | Phone: | | | | | REHABILITATI | [phone] | [phone] | | | | | ON | Fax: | Fax: | | | | | | [phone] | [phone] | +--------+--------+ + + + + Diagnostic [...] | | y | [address] [place] | | | | | Procedures | Roxann Ayala | Research | | | | | MRI SPINE | [place], [place] | Center | | | | | LUMBAR WO | | [place], [place] | | | | | CONT | Phone: | [address] | | | | | | [phone] | Phone: | | | | | | Fax: | [phone] | | | | | | [phone] | Fax: | | | | | | | [phone] | +--------+--------+ + + + + Reason [...] | | | Orthopedics | | | [address] [facility] | | | | | | | [address] | | | | | | | [place], | | | | | | | [place] | | | | | | | [address] | | | | | | | Phone: | | | | | | | [phone] | | | | | | | Fax: | | | | | | | [phone] | +--------+--------+ + + + + Encounter [...] | | | | Mailcode: [id number] | [place], [place] | | | | | [facility] | [address] | | | | | [place], [place] | [phone] | | | | | [address] | | | | | | [phone] | | | +--------+---------+ + + + [...] and plan of care. TYRONE COLBY MD [facility] [address] [place] [address] Mailcode: [id number] [facility] [address] Taz Grider M D - 07/06/2010 9:32 [...] of | | | | | | P9wwcmibef/superior | | | | | | corner, [...]
--- OUTSIDE RECORDS SUMMARY | ~2020-04-27 | XMS | Encounter Summary ---
Demographics + + + | Address | [address] | | | [place] [address] | + + + | Home Phone [...] Team Providers + +------+ + | Care Hydrometeorologist Name | Role | Phone | + +------+ + PCP | Unavailable | + +------+ + Encounter Details +--------+ + + + + | Date | Type | Department | Care Team | Description | +--------+ + + + + | 03/19/ | Results | Registration [id number] | Sophy, Faculty | | | 2007 | Only | [address] | [phone] | | | | | Rd Mailcode: [id number] | | | | | | [place], [place] | | | | | | [address] | | | | | | [phone] | | | +--------+ + + + [...]
--- OUTSIDE RECORDS SUMMARY | ~2020-04-27 | XMS | Encounter Summary ---
Demographics + + + | Address | [address] | | | [place] [address] | + + + | Home Phone [...] Team Providers + +------+ + | Care Bonsai Culturist Name | Role | Phone | + [...] of this encounter Progress Notes Interface, Warehouse Specialist In - 04/28/2005 6:17 PM PDTClinic [...] presence of her friend and my physician graduate assistant and resident here in the Orthopedic [...] as soon as possible. Lloyd Garcia M.D. [employer] Principal of Orthopedics and Rehabilitation / [id number] / [id number] / [id number] / [id number] Tdocumented in this encounter Plan of Treatment Not on filedocumented as of this encounter Visit Diagnoses Not on filedocumented in this encounter
--- OUTSIDE RECORDS SUMMARY | ~2020-04-27 | XMS | Encounter Summary ---
Demographics + + + | Address | [address] | | | [place] [address] | + + + | Home Phone [...] Team Providers + +------+ + | Care Postmaster Name | Role | Phone | + [...] [place] | | | | | | [address] | | | | | | [phone] | | | +--------+ + + + [...]
--- OUTSIDE RECORDS SUMMARY | ~2020-04-27 | XMS | Encounter Summary ---
Demographics + + + | Address | [address] | | | [place] [address] | + + + | Home Phone | | + + + | Preferred Language | Unknown | + + + | Marital Status | | + + + | Islam Affiliation | 1076 | + + + | Race | Unknown | + + + | Ethnic Group | Unknown | + + + Author + + + | Author | [facility] | | | and [place] | + + + | Organization | [facility] | | [...] Providers + +------+ + | Care Senior Engineering Manager Name | Role | Phone [...] | | | with BMI of | [place], | [place], | | | | | 50.0-59.9, | [place] [address] | [place] [address] | | | | | adult (HCC) | Phone: | Phone: | | | | | Procedures | [phone] | [phone] | | | | | MELVI | Fax: | Fax: | | | | | Nutrition | [phone] | [phone] | | | | | Counseling | [...] | Opinion | | Unilateral | Marta, 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 | [place] [address] | | | | | primary | [address] | | | | | osteoarthrit | | [place], [place] | | | | | is, left hip | [place], | [address] | | | | | Pain in | [place] [address] | Phone: | | | | | left hip | Phone: | [phone] | | | | | Unilateral | [phone] | Fax: | | | | | primary | Fax: | [phone] | | | | | osteoarthrit | [phone] | | | | | | is, left | | | | | | | hip, Pain in | | | | | | | left hip | | | +--------+ + + + + + Encounter Details +--------+---------+ + + + | Date | Type | Department | Care Team | Description | +--------+---------+ + + + | 07/08/ | Office | [facility] | Jasper Medrano, | Primary | | 2019 | Visit | [place] [address] | [address] | osteoarthritis of | | | | [address] [place], [place] | [place], [place] | left hip (Primary | | | | [address] | [address] | Dx); Left hip pain; | | | | [phone] | | H/O total hip | | [...] ; Surg andrés: Rustam Schmid MD; Location: [facility] [place] Social History Tobacco Use Smoking [...] loosening or subsidence. However this is a qrbpj-pu-tbqlz prosthesis. Did not seem to be any significant ostial lysis around either of the components. There is evidence in the femur of previously removed hardware. 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 The left hip shows severe koas-jn-nzyv arthritis without any evidence of residual joint space. There is prominent sclerosis and marginal osteophyte formation and subchondral cyst formation. The visualized lumbar spine show significant degenerative changes. Jasper Medrano MD Assessment and Plan ICD-10-CM ICD-9-CM 1. Primary osteoarthritis of left hip M16.12 715.15 2. Left hip pain M25.552 719.45 XR Hip Bilateral 2 Views CBC with Differential Chromium level [place] Prealbumin Sedimentation Rate C-Reactive Protein Nutrition Referral [...] [place] | | | | | | [address] | | | | | | | [...] REFERENCE | | | | performed at [facility];[address] | | LAB | | | | [place] | | [facility] | | | | [address];[place] [address] | | LABORATORY | | + + + + + + + + | Specimen | + + | Blood | + + + + + + + | Performing | Address | City/State/Zipcode | Phone Number | | Organization | | | | + + + + + | REFERENCE LAB | [address] [place], [place] [address] | [facility] [place] | [phone] | | [facility] | [address] | [address] | | | LABORATORY | | | | + + + + + | REFERENCE LAB | [address] [place] [address] | [place] | | | [facility] | [address] | [address] | | | LABORATORY | | | [...] [facility] | | | | Bl[address];[place] [address] | | LABORATORY | | + + + + + + + + | Specimen | + + | Blood | + + + + + + + | Performing | Address | City/State/Zipcode | Phone Number | | Organization | | | | + + + + + | REFERENCE LAB | [address] [place] [address] | [facility] [place] | [phone] | | [facility] | [address] | [address] | | | LABORATORY | | | | + + + + + | REFERENCE LAB | [address] [facility] | [place] | | | [facility] | [address] | [address] | | | LABORATORY | | | [...] | | [facility] | | | | Blvd;[place] [address] | | LABORATORY | | + + + + + + + + | Specimen | + + | Blood | + + + + + + + | Performing | Address | City/State/Zipcode | Phone Number | | Organization | | | | + + + + + | REFERENCE LAB | [address] [place] [address] | [place] | [phone] | | [facility] | [address] | [address] | | | LABORATORY | | | | + + + + + | REFERENCE LAB | [address] [place] [address] | [place] | | | [facility] | [address] | [address] | | | LABORATORY | | | | + + + + + [place] (07/29/2019 10:58 AM PDT) + + + + + + | Component | Value | Ref Range | Performed | Pathologist | | | | | At | Signature | + + + + + + | [place], | None DetectedComment: | 0.0 - 0.9 ug/L | REFERENCE | | | Ser/Plas | This test was developed | | LAB | | | | and its performance | | [facility] | | | | characteristicsdetermine | | LABORATORY | | | | d by [employer]. It has not | | | | [...] | | | | | | [place] [address] | | | | + + + + + + + + | Specimen | + + | Blood | + + + + + + + | Performing | Address | City/State/Zipcode | Phone Number | | Organization | | | | + + + + + | REFERENCE LAB | [address] [place] [address] | [place], [place] | [phone] | | [facility] | [address] | [address] | | | LABORATORY | | | | + + + + + | REFERENCE LAB | [address] [place] [address] | [place], [place] | | | [facility] | [address] | [address] | | | LABORATORY | | | [...] [place] | | | | | | [address] | | | | + + + + + + + + | Specimen | + + | Blood | + + + + + + + | Performing | Address | City/State/Zipcode | Phone Number | | Organization | | | | + + + + + | REFERENCE LAB | [address] [place] [address] | [place] | [phone] | | [facility] | [address] | [address] | | | LABORATORY | | | | + + + + + | REFERENCE LAB | [address] [place] [address] | [place], [place] | | | [facility] | [address] | [address] | | | LABORATORY | | | [...] | | | Absolute | performed at [facility];[address] | [address] | LAB | | | | [place] | | [facility] | | | | [address];[place] [address] | | LABORATORY | | + + + + + + + + | Specimen | + + | Blood | + + + + + + + | Performing | Address | City/State/Zipcode | Phone Number | | Organization | | | | + + + + + | REFERENCE LAB | [address] [place] [address] | [place], [place] | [phone] | | [facility] | Blvd. | [address] | | | LABORATORY | | | | + + + + + | REFERENCE LAB | [address] [place] [address] | [place], [place] | | | [facility] | Blvd[address] | [address] | | | LABORATORY | | | [...] | | subsidence. However this is a fgivk-jt-bhzwl prosthesis. Did not | | | seem to be any significant ostial lysis around either of the | | | components. There is evidence in the femur of previously removed | | | hardware. 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 The left hip shows severe jxcr-tl-wmub | | | arthritis without any evidence [...]
--- OUTSIDE RECORDS SUMMARY | ~2020-04-27 | XMS | Encounter Summary ---
Demographics + + + | Address | [address] | | | [place] [address] | + + + | Home Phone [...] Providers + +------+ + | Care Fire Operations Forester Name | Role | Phone | + [...] | Transcriptions | + + | Interface, Liquefied Natural Gas Operator In - 03/06/2006 1:10 AM PDT Date: | | 08/16/2003Attending Surgeon: Lloyd Garcia M.D.Road Worker(s): | | Benson Boone M.D.Preoperative Diagnosis:Right hip [...] cc per Arreaga drain to | | 8-Emirati tubes to 1 median Hemovac suctioncanister.Postoperative Plan:Ancef [...] brought to | | OperatingRoom #6 at [facility] Operating Room suite.She | | was placed [...] Vicryl mattress sutures andaddition | | of mmadds-dr-iqaxi 0 Vicryl. The fascial layer with gayvzhduamyonvven-vw-lzvhj 0 | | Vicryl sutures. Fadumo's fascia [...] to | | leaving the room.Lloyd Garcia M.D.Value Engineer, Orthopedics and | | Rehabilitation / [id number] / [id number] / [id number] / [id number]: 08/16/2003T: | | 08/16/2003cc:Ninfa Guillen M.D.[address] [place] [address] | | | |The posterior superior iliac [...] Vicryl mattress sutures and | |addition of jpdemi-te-pusrx 0 Vicryl. The fascial layer with interrupted | |exgjmg-us-ahnof 0 Vicryl sutures. Fadumo's fascia was closed [...] | | | |Lloyd Garcia M.D. | |Value Engineer, Orthopedics and Rehabilitation | | | | / | |[id number] / [id number] / [id number] / 99704 | | | | | | | |cc: | | | |Ninfa Guillen M.D. | |[address], | |[place] [address] | + + documented in this encounter Visit Diagnoses Not on filedocumented in this encounter"
--- OUTSIDE RECORDS SUMMARY | ~2020-04-27 | XMS | Encounter Summary ---
Demographics + + + | Address | [address] | | | [place] [address] | + + + | Home Phone [...] Providers + +------+ + | Care Procurement Clerk Name | Role | Phone | [...] | | | | Mailcode: [id number] | [place], [place] | | | | | [facility] | [address] | | | | | [place], [place] | [phone] | | | | | [address] | | | | | | [phone] | | | +--------+ + + + [...]
--- OUTSIDE RECORDS SUMMARY | ~2020-04-27 | XMS | Encounter Summary ---
Demographics + + + | Address | [address] | | | [place] [address] | + + + | Home Phone [...] Providers + +------+ + | Care Well Shooter Name | Role | Phone | + [...] W | | | | ON | [facility] 4th Floor [address] | | | | | [address] | Road [place], [place] | | | | | Mailcode: CH4S | [address] | | | | | [facility] | | | | | | and Healing, | | | | | | Building 1,4th Floor | | | | | | [place], [place] | | | | | | [address] | | | | | | [phone] | | | +--------+ + + + [...]
--- OUTSIDE RECORDS SUMMARY | ~2020-04-27 | XMS | Encounter Summary ---
Demographics + + + | Address | [address] | | | [place] [address] | + + + | Home Phone [...] Team Providers + +------+ + | Care Chute Tender Name | Role | Phone | [...] as of this encounter Progress Notes Interface, Equipment Maintenance Tech In - 07/18/2006 3:04 AM PDTCLINIC DATE: [...] further treatment options. Brigette Lim P.A.-C / [id number] / [id number] / [id number] / Tdocumented in this encounter Plan of Treatment Not on filedocumented as of this encounter Visit Diagnoses Not on filedocumented in this encounter"
--- OUTSIDE RECORDS SUMMARY | ~2020-04-27 | XMS | Encounter Summary ---
Demographics + + + | Address | [address] | | | [place] [address] | + + + | Home Phone [...] Providers + +------+ + | Care Film Sorter Name | Role | Phone | [...] | [facility] | MEGAN Reddy [address] | | | | | [address] | [address] | | | | | Loop Physician's | [place], [place] | | | | | [address], 3rd floor | [address] | | | | | [place], [place] | [phone] | | | | | [address] | | | | | | [phone] | | | +--------+ + + + [...] CELL | 8.6 | K/cu mm | [facility] | | | COUNT | | | MEDICAL | | | | | | [facility] - | | | | | | [place] | | + + + + + + | RED CELL | 3.88 | M/cu mm | [facility] | | | COUNT | | | MEDICAL | | | | | | [facility] - | | | | | | [place] | | + + + + + + | HEMOGLOBIN | 11.5 (A) | 12.1999 - 15 | [facility] | | | | | g/dL | MEDICAL | | | | | | [facility] - | | | | | | [place] | | + + + + + + | HEMATOCRIT | 33.7 | % | [facility] | | | | | | [facility] | | | | | | [facility] - | | | | | | [place] | | + + + + + + | MCV | 87 | fL | [facility] | | | | | | [facility] | | | | | | [facility] - | | | | | | [place] | | + + + + + + | MCH | 29.7 | pg | [facility] | | | | | | MED[facility] | | | | | | [facility] - | | | | | | [place] | | + + + + + + | MCHC | 34.1 | g/dL | [facility] | | | | | | [facility] | | | | | | [facility] - | | | | | | [place] | | + + + + + + | PLATELET | 369 | K/cu mm | [facility] | | | COUNT | | | MEDICAL | | | | | | [facility] - | | | | | | [place] | | + + + + + + | NEUTROPHIL | 66.6 | % | [facility] | | | % | | | MEDICAL | | | | | | [facility] - | | | | | | [place] | | + + + + + + | LYMPHOCYTE | 23.2 | % | [facility] | | | % | | | [facility] | | | | | | [facility] - | | | | | | [place] | | + + + + + + | MONOCYTE % | 6.6 | % | [facility] | | | | | | [facility] | | | | | | [facility] - | | | | | | [place] | | + + + + + + | EOS % | 3.1 | % | [facility] | | | | | | [facility] | | | | | | [facility] - | | | | | | [place] | | + + + + + + | BASO % | 0.5 | % | [facility] | | | | | | [facility] | | | | | | [facility] - | | | | | | [place] | | + + + + + + | RDW | 16.7 | % | [facility] | | | | | | [facility] | | | | | | [facility] - | | | | | | [place] | | + + + + + + | MPV | | fL | [facility] | | | | | | [facility] | | | | | | [facility] - | | | | | | [place] | | + + + + + + | NEUTROPHIL | 5.7 | K/cu mm | [facility] | | | # | | | MEDICAL | | | | | | [facility] - | | | | | | [place] | | + + + + + + | LYMPHOCYTE | 2.0 | K/cu mm | [facility] | | | # | | | [facility]ICAL | | | | | | [facility] - | | | | | | [place] | | + + + + + + | MONOCYTE # | 0.6 | K/cu mm | [facility] | | | | | | [facility] | | | | | | [facility] - | | | | | | [place] | | + + + + + + | EOS # | 0.3 | K/cu mm | [facility] | | | | | | [facility] | | | | | | [facility] - | | | | | | [place] | | + + + + + + | BASO # | | | [facility] | | | | | | [facility] | | | | | | [facility] - | | | | | | [place] | | + + + + + + | SEDIMENTATI | 78 | mm/hr | [facility] | | | ON RATE | | [...] | + + + + + | [facility] | [address] | [place] [address] | | | [facility] | | | | + + + + + COMPLETE METABOLIC SET (NA,K,CL,CO2,BUN,CREAT,GLUC,CA,AST,ALT,BILI TOTAL,ALK PHOS,ALB,PROT TOTAL) (11/16/2010 9:41 AM PST) + +---------+ + + + | Component | Value | Ref Range | Performed | Pathologist | | | | | At | Signature | + +---------+ + + + | GLUCOSE, | 112 (A) | 65 - 110 mg/dL | [facility] | | | PLASMA | | | MEDICAL | | | (LAB) | | | CENTER - | | | | | | [place] | | + +---------+ + + + | BUN, PLASMA | 6 | mg/dL | [facility] | | | (LAB) | | | MEDICAL | | | | | | CENTER - | | | | | | [place] | | + +---------+ + + + | CREATININE | 0.4 | mg/dL | [facility] | | | PLASMA | | | MEDICAL | | | (LAB) | | | CENTER - | | | | | | [place] | | + +---------+ + + + | TOTAL | 7.1 | g/dL | [facility] | | | PROTEIN, | | | MEDICAL | | | PLASMA | | | CENTER - | | | (LAB) | | | [place] | | + +---------+ + + + | ALBUMIN, | 3.3 | g/dL | [facility] | | | PLASMA | | | MEDICAL | | | (LAB) | | | CENTER - | | | | | | [place] | | + +---------+ + + + | CALCIUM, | 8.6 | mg/dL | [facility] | | | PLASMA | | | MEDICAL | | | (LAB) | | | CENTER - | | | | | | [place] | | + +---------+ + + + | BILIRUBIN | 0.9 | Transcutaneous | [facility] | | | TOTAL | | Bilirubinometer | MEDICAL | | | | | | CENTER - | | | | | | [place] | | + +---------+ + + + | ALK PHOS | 60 | U/L | [facility] | | | | | | MEDICAL | | | | | | [facility]ENTER - | | | | | | [place] | | + +---------+ + + + | AST(SGOT) | 15 | U/L | [facility] | | | | | | MEDICAL | | | | | | [facility]ENTER - | | | | | | [place] | | + +---------+ + + + | SODIUM, | 139 | mmol/L | [facility] | | | PLASMA | | | MEDICAL | | | (LAB) | | | CENTER - | | | | | | [place] | | + +---------+ + + + | POTASSIUM, | 4.1 | mmol/L | [facility] | | | PLASMA | | | MEDICAL | | | (LAB) | | | CENTER - | | | | | | [place] | | + +---------+ + + + | CHLORIDE, | 107 | mmol/L | [facility] | | | PLASMA | | | MEDICAL | | | (LAB) | | | CENTER - | | | | | | [place] | | + +---------+ + + + | TOTAL CO2, | 26 | mmol/L | [facility] | | | PLASMA | | | MEDICAL | | | (LAB) | | | CENTER - | | | | | | [place] | | + +---------+ + + + | ALT (SGPT) | 11 | U/L | [facility] | | | | | | MEDICAL | | | | | | CENTER - | | | | | | [place] | | + +---------+ + + + | ANION GAP | 10 | | [facility] | | | | | | MEDICAL | | | | | | [facility]ENTER - | | | | | | [place] | | + +---------+ + + + | OSMOLALITY, | 286 | | [facility] | | | CALCULATED | | | [...] | + + + + + | [facility] | [address] | [place] [address] | | | [facility] | | | | + + + + + documented in this encounter Visit Diagnoses Not on filedocumented in this encounter"
--- OUTSIDE RECORDS SUMMARY | ~2020-04-27 | XMS | Encounter Summary ---
Demographics + + + | Address | [address] | | | [place] [address] | + + + | Home Phone [...] Team Providers + +------+ + | Care Crawler Tractor Operator Name | Role | Phone [...] | [facility] | MEGAN Reddy [address] | | | | | [address] | [address] | | | | | Loop Physician's | [place], [place] | | | | | [address], 3rd floor | [address] | | | | | [place], [place] | [phone] | | | | | [address] | | | | | | [phone] | | | +--------+ + + + [...] | SEDIMENTATI | 48 | mm/hr | [facility] | | | ON RATE | | [...] | + + + + + | [facility] | [address] | [place] [address] | | | [facility] [place] | | | | + + + + + documented in this encounter Visit Diagnoses Not on filedocumented in this encounter"
--- OUTSIDE RECORDS SUMMARY | ~2020-04-27 | XMS | Encounter Summary ---
Demographics + + + | Address | [address] | | | [place] [address] | + + + | Home Phone [...] Providers + +------+ + | Care Plastic Card Grader Cardroom Name | Role | Phone | + +------+ + | No Pcp Per Patient | PCP | Unavailable | + +------+ + Encounter Details +--------+ + + + + | Date | Type | Department | Care Team | Description | +--------+ + + + + | 12/15/ | Chain Puller | Orthopaedics at | Kalyan Arias MD | JUAN DAVID (Total Hip | | 2008 | | [facility] [address] | [address] | Arthroplasty) | | | | [address] | [address] | (Primary Dx) | | | | Mailcode: [id number] | [place], [place] | | | | | [facility] | [address] | | | | | [place], [place] | [phone] | | | | | [address] | | | | | | [phone] | | | +--------+ + + + [...]
--- OUTSIDE RECORDS SUMMARY | ~2020-04-27 | XMS | Encounter Summary ---
Demographics + + + | Address | [address] | | | [place] [address] | + + + | Home Phone [...] Team Providers + +------+ + | Care Emissions Repair Technician Name | Role | Phone [...] | | | | | Osteoarthros | [address] | Pavilion | | | | | is, | | [place], [place] | | | | | unspecified | | [address] | | | | | whether | | Phone: | | | | | generalized | | [phone] | | | | | or | | Fax: | | | | | localized, | | [phone] | | | | | pelvic | [...] | | [address] | [address] [place], | | | | | Mailcode: [id number] | [place] [address] | | | | | [facility] | | | | | | [place], [place] | | | | | | [address] | | | | | | [phone] | | | +--------+---------+ + + + [...] with glut medius limp. Uses cane supervisor twisting department. Pain is in inner groin and [...] + + | Performing | Address | City/State[facility] | Phone Number | | Organization | [...]
--- OUTSIDE RECORDS SUMMARY | ~2020-04-27 | XMS | Encounter Summary ---
Demographics + + + | Address | [address] | | | [place] [address] | + + + | Home Phone | | + + + | Preferred Language | Unknown | + + + | Marital Status | | + + + | Congregational Affiliation | 1076 | + + + | Race | Unknown | + + + | Ethnic Group | Unknown | + + + Author + + + | Author | [facility] | | | and [place] | + + + | Organization | [facility] | | | [...] + +------+ + | Care Hazardous Materials Tanker Driver Name | Role | Phone | + +------+ + PCP | Unavailable | + +------+ + Encounter Details +--------+ + + + + | Date | Type | Department | Care Team | Description | +--------+ + + + + | 05/30/ | Hospital | [facility] | Augie Valdivia MD | | | 2011 | Encounter | MED CTR MP INTRA OP | [address], [place] | | | | | [address] | [address] | | | | | [place] [place] | [address] | | | | | [address] | | | | | | [phone] | | | +--------+ + + + [...] [place] | | | | | | [address] | | | | | | | | +--------+---------+ + + + documented as of this encounter Visit Diagnoses Not on filedocumented in this encounter"
--- OUTSIDE RECORDS SUMMARY | ~2020-04-27 | XMS | Encounter Summary ---
Demographics + + + | Address | [address] | | | [place] [address] | + + + | Home Phone [...] Team Providers + +------+ + | Care Water Tester Name | Role | Phone | + +------+ + | Marta Jenkins SERVER ASSISTANT | PCP | | + +------+ + Encounter Details +--------+ + + + + | Date | Type | Department | Care Team | Description | +--------+ + + + + | 06/11/ | Ancillary | Registration [id number] | Lloyd Garcia MD | | | 2005 | Registratio | [facility] | | | | | n | Jamie Mailcode: [id number] | | | | | | [place], [place] | | | | | | [address] | | | | | | [phone] | | | +--------+ + + + [...]
--- OUTSIDE RECORDS SUMMARY | ~2020-04-27 | XMS | Encounter Summary ---
Demographics + + + | Address | [address] | | | [place] [address] | + + + | Home Phone [...] Team Providers + +------+ + | Care Canvass Manager Name | Role | Phone | [...] | | | with BMI of | [place], | [place], | | | | | 50.0-59.9, | [place] [address] | [place] [address] | | | | | adult (HCC) | Phone: | Phone: | | | | | Procedures | [phone] | [phone] | | | | | MELVI | Fax: | Fax: | | | | | Nutrition | [phone] | [phone] | | | | | Counseling | [...] | Opinion | | Unilateral | Marta, [address] | [place] [address] | | | | | primary | [address] | | | | | osteoarthrit | | [place], [place] | | | | | is, left hip | [place], | [address] | | | | | Pain in | [place] [address] | Phone: | | | | | left hip | Phone: | [phone] | | | | | Unilateral | [phone] | Fax: | | | | | primary | Fax: | [phone] | | | | | osteoarthrit | [phone] | | | | | | is, left | | | | | | | hip, Pain in | | | | | | | left hip | | | +--------+ + + + + + Encounter Details +--------+---------+ + + + | Date | Type | Department | Care Team | Description | +--------+---------+ + + + | 07/08/ | Office | [facility] | Jasper Medrano, | Primary | | 2019 | Visit | [place] [address] [address] | [address] | osteoarthritis of | | | | [address] [place], [place] | [place] | left hip (Primary | | | | [address] | [address] | Dx); Left hip pain; | | | | [phone] | | H/O total hip | | [...] ; Surg andrés: Rustam Schmid MD; Location: [facility] [place] Social History Tobacco Use Smoking [...] loosening or subsidence. However this is a myksi-gr-lgmtv prosthesis. Did not seem to be any significant ostial lysis around either of the components. There is evidence in the femur of previously removed hardware. 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 The left hip shows severe ouzt-zw-ozqs arthritis without any evidence of residual joint space. There is prominent sclerosis and marginal osteophyte formation and subchondral cyst formation. The visualized lumbar spine show significant degenerative changes. Jasper Medrano MD Assessment and Plan ICD-10-CM ICD-9-CM 1. Primary osteoarthritis of left hip M16.12 715.15 2. Left hip pain M25.552 719.45 XR Hip Bilateral 2 Views CBC with Differential Chromium level [place] Prealbumin Sedimentation Rate C-Reactive Protein Nutrition Referral [...] [place] | | | | | | [address] | | | | | | | [...] REFERENCE | | | | performed at [facility];[address] | | LAB | | | | [place] | | [facility] | | | | [address];[place] [address] | | LABORATORY | | + + + + + + + + | Specimen | + + | Blood | + + + + + + + | Performing | Address | City/State/Zipcode | Phone Number | | Organization | | | | + + + + + | REFERENCE LAB | [address] [place], [place] [address] | [place] | [phone] | | [facility] | Bl[address] | [address] | | | LABORATORY | | | | + + + + + | REFERENCE LAB | [address] [place] [address] | [place] | | | [facility] | Blvd[address] | [address] | | | LABORATORY | | | [...] [facility] | | | | Blvd;[place] [address] | | LABORATORY | | + + + + + + + + | Specimen | + + | Blood | + + + + + + + | Performing | Address | City/State/Zipcode | Phone Number | | Organization | | | | + + + + + | REFERENCE LAB | [address] [place] [address] | [place] | [phone] | | [facility] | Bl[address] | [address] | | | LABORATORY | | | | + + + + + | REFERENCE LAB | [address] [facility] | [place] | | | [facility] | Blvd[address] | [address] | | | LABORATORY | | | [...] | | [facility] | | | | Blvd;[place] [address] | | LABORATORY | | + + + + + + + + | Specimen | + + | Blood | + + + + + + + | Performing | Address | City/State/Zipcode | Phone Number | | Organization | | | | + + + + + | REFERENCE LAB | [address] [place] [address] | [place] | [phone] | | [facility] | Bl[address] | [address] | | | LABORATORY | | | | + + + + + | REFERENCE LAB | [address] [place] [address] | [place] | | | [facility] | Blvd[address] | [address] | | | LABORATORY | | | | + + + + + [place] (07/29/2019 10:58 AM PDT) + + + + + + | Component | Value | Ref Range | Performed | Pathologist | | | | | At | Signature | + + + + + + | [place], | None DetectedComment: | 0.0 - 0.9 ug/L | REFERENCE | | | Ser/Plas | This test was developed | | LAB | | | | and its performance | | [facility] | | | | characteristicsdetermine | | LABORATORY | | | | d by [facility]. It has not | | | | [...] | | | | | | [place] [address] | | | | + + + + + + + + | Specimen | + + | Blood | + + + + + + + | Performing | Address | City/State/Zipcode | Phone Number | | Organization | | | | + + + + + | REFERENCE LAB | [address] [place] [address] | [place], [place] | [phone] | | [facility] | Blvd[address] | [address] | | | LABORATORY | | | | + + + + + | REFERENCE LAB | [address] [place] [address] | [place], [place] | | | [facility] | Blvd. | [address] | | | LABORATORY | | | [...] [place] | | | | | | [address] | | | | + + + + + + + + | Specimen | + + | Blood | + + + + + + + | Performing | Address | City/State/Zipcode | Phone Number | | Organization | | | | + + + + + | REFERENCE LAB | [address] [place] [address] | [place] | [phone] | | [facility] | Bl[address] | [address] | | | LABORATORY | | | | + + + + + | REFERENCE LAB | [address] [place] [address] | [place], [place] | | | [facility] | Blvd[address] | [address] | | | LABORATORY | | | [...] | | | Absolute | performed at [facility];[address] | [address] | LAB | | | | [place] | | [facility] | | | | [address];[place] [address] | | LABORATORY | | + + + + + + + + | Specimen | + + | Blood | + + + + + + + | Performing | Address | City/State/Zipcode | Phone Number | | Organization | | | | + + + + + | REFERENCE LAB | [address] [place] [address] | [place], [place] | [phone] | | [facility] | Blvd. | [address] | | | LABORATORY | | | | + + + + + | REFERENCE LAB | [address] [place] [address] | [place], [place] | | | [facility] | Blvd[address] | [address] | | | LABORATORY | | | [...] | | subsidence. However this is a rbxoi-wo-gzfxz prosthesis. Did not | | | seem to be any significant ostial lysis around either of the | | | components. There is evidence in the femur of previously removed | | | hardware. 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 The left hip shows severe oxpw-kk-oikb | | | arthritis without any evidence [...] + + | Performing | Address | City[facility] | Phone Number | | [...]
--- OUTSIDE RECORDS SUMMARY | ~2020-04-27 | XMS | Encounter Summary ---
Demographics + + + | Address | [address] | | | [place] [address] | + + + | Home Phone [...] Providers + +------+ + | Care Business Performance Advisor Name | Role | Phone | [...] as of this encounter Progress Notes Interface, Furnace Helper In - 06/23/2006 1:07 AM PDTCLINIC DATE: [...] Ken Mejia M.D. Lloyd Garcia M.D. / [id number] / [id number] / [id number] / Tdocumented in this encounter Plan of Treatment Not on filedocumented as of this encounter Visit Diagnoses Not on filedocumented in this encounter"
--- OUTSIDE RECORDS SUMMARY | ~2020-04-27 | XMS | Encounter Summary ---
Demographics + + + | Address | [address] | | | [place] [address] | + + + | Home Phone [...] Providers + +------+ + | Care Seafood Fisherman Name | Role | Phone | + [...] Pavilion | | | | | | [place], [place] | | | | | | [address] | | | | | | [phone] | | | +--------+ + + + [...] | + + + + + | [facility] | [address] | [place] [address] | | | LABORATORY | | | [...] | + + + + + | [facility] DEPARTMENT OF | [address] [facility] | [place] [address] | | | PATHOLOGY | [address] | | | + + + + + | [facility] DEPARTMENT OF | [address] [facility] | [place] [address] | | | PATHOLOGY | [address] [...] + | [facility] | [address] | [place] [address] | | | PATHOLOGY | [address] | | | + + + + + | [facility] | [facility] [address] | [place] [address] | | | PATHOLOGY | [address] [...] DEPARTMENT OF | [address] | [place] [address] | | | PATHOLOGY | [address] | | | + + + + + | [facility] | [address] | [place] [address] | | | PATHOLOGY | [address] [...] Marybeth, | | | | | | Concrete Carpenter, | | | | | | attime [...] | + + + + + | [facility] | [address] | [place] [address] | | | LABORATORY | | | [...] | + + + + + | [facility] DEPARTMENT OF | [address] | [place] [address] | | | PATHOLOGY | [address] | | | + + + + + | [facility] DEPARTMENT OF | [address] | [place] [address] | | | PATHOLOGY | [address] [...] | + + + + + | [facility] DEPARTMENT OF | [address] [facility] | [place] [address] | | | PATHOLOGY | [address] | | | + + + + + | [facility] DEPARTMENT OF | [address] [facility] | [place] [address] | | | PATHOLOGY | [address] [...] | + + + + + | [facility] DEPARTMENT OF | [address] [facility] | [place] [address] | | | PATHOLOGY | [address] | | | + + + + + | [facility] DEPARTMENT OF | [address] [facility] | [place] [address] | | | PATHOLOGY | [address] [...] | + + + + + | [facility] | [address] | [place] [address] | | | LABORATORY | | | [...] | + + + + + | [facility] | [address] | [place] [address] | | | PATHOLOGY | [address] | | | + + + + + | [facility] | [facility] [address] | [place] [address] | | | PATHOLOGY | [address] [...] | + + + + + | [facility] DEPARTMENT OF | [address] | [place] [address] | | | PATHOLOGY | [address] | | | + + + + + | [facility] DEPARTMENT OF | [address] | [place] [address] | | | PATHOLOGY | [address] [...] | + + + + + | [facility] | [address] [facility] | [place] [address] | | | PATHOLOGY | [address] | | | + + + + + | [facility] DEPARTMENT OF | [facility] [facility] | [place] [address] | | | PATHOLOGY | [address] [...] + + + | [facility] | [address] | [place] [address] | | | LABORATORY | | | [...] | + + + + + | [facility] | [address] [facility] | [place] [address] | | | PATHOLOGY | [address] | | | + + + + + | [facility] DEPARTMENT OF | [address] [facility] | [place] [address] | | | PATHOLOGY | [address] [...] + + | [facility] DEPARTMENT OF | [address] | [place] [address] | | | PATHOLOGY | [address] | | | + + + + + | [facility] | [address] | [place] [address] | | | PATHOLOGY | [address] [...] PRIMARY | | | | | | ELECTRICIAN CONTROL EQUIPMENT: Joao Wilde | | | | | [...] | | | | | aspirated. A12 Lithuanian | | | | | | multi [...] | | + +---------+ + + | [facility] DEPARTMENT OF | | | | [...] | | + +---------+ + + | [facility] DEPARTMENT OF | | | | [...] + + + | [facility] | [address] | [place] [address] | | | LABORATORY | | | [...] | + + + + + | [facility] DEPARTMENT OF | [address] | [place] [address] | | | PATHOLOGY | [address] | | | + + + + + | [facility] DEPARTMENT OF | [address] | [place] [address] | | | PATHOLOGY | [address] [...] (L) | 7.4 - 10.4 fL | [facility] | | | | | | [...] | + + + + + | [facility] DEPARTMENT OF | [address] [facility] | [place] [address] | | | PATHOLOGY | [address] | | | + + + + + | [facility] DEPARTMENT OF | [address] [facility] | [place] [address] | | | PATHOLOGY | [address] [...] | + + + + + | [facility] DEPARTMENT OF | [address] | [place] [address] | | | PATHOLOGY | [address] | | | + + + + + | [place] DEPARTMENT OF | [address] | [place] [address] | | | PATHOLOGY | [address] [...] | + + + + + | [facility] | [facility] [facility] | [place] [address] | | | PATHOLOGY | [address] | | | + + + + + | [facility] DEPARTMENT OF | [address] [facility] [facility] | [place] [address] | | | PATHOLOGY | [address] [...] | | + +---------+ + + | [facility] DEPARTMENT OF | | | | [...] | + + + + + | [facility] | [address] [facility] | [place] [address] | | | PATHOLOGY | [address] | | | + + + + + | [facility] | [address] [facility] | [place] [address] | | | PATHOLOGY | [address] [...] DEPARTMENT OF | [address] | [place] [address] | | | PATHOLOGY | [address] | | | + + + + + | [facility] DEPARTMENT OF | [address] | [place] [address] | | | PATHOLOGY | [address] [...] + | [facility] | [address] | [place] [address] | | | PATHOLOGY | [address] | | | + + + + + | [facility] | [address] | [place] [address] | | | PATHOLOGY | [address] [...] + + + | [facility] | [address] | [place] [address] | | | LABORATORY | | | | + + + + + documented in this encounter Visit Diagnoses Not on filedocumented in this encounter"
--- OUTSIDE RECORDS SUMMARY | ~2020-04-27 | XMS | Encounter Summary ---
Demographics + + + | Address | [address] | | | [place] [...] Team Providers + +------+ + | Care Radiation Control Health Physicist Name | Role | Phone | + [...] | | | | | or | [address] | Pavilion | | | | | localized, | | [place], [place] | | | | | pelvic | | [address] | | | | | region and | | Phone: | | | | | thigh | | [phone] | | | | | Intervertebr | | Fax: | | | | | al lumbar | | [phone] | | | | | disc | [...] Pavilion | | | | | | [place], [place] | | | | | | [address] | | | | | | [phone] | | | +--------+---------+ + + + [...] tenderness. Severe gluteus medius limp. Most recent [facility] Laboratory Studies: Normal C-reactive protein at 0.5 (02/10/04), normal [facility] te cell count at 9.4 & [...] this done around the time of the [place] so she can enjoy shopp ing. [...] hip arthroplasty if needed. Lloyd Garcia M.D. Director Of Estate, Orthopedics and Rehabilitation documented in this encount [...] | | + +---------+ + + | [facility] DEPARTMENT OF | | | | [...] | | + +---------+ + + | [facility] DEPARTMENT OF | | | | [...]
--- OUTSIDE RECORDS SUMMARY | ~2020-04-27 | XMS | Encounter Summary ---
Demographics + + + | Address | [address] | | | [place] [address] | + + + | Home Phone [...] Team Providers + +------+ + | Care Pinion And Wheel Truer Name | Role | Phone | + [...] | | | | [facility] | [address] | | | | | [place], [place] | [phone] | | | | | [address] | | | | | | [phone] | | | +--------+ + + + [...]
--- OUTSIDE RECORDS SUMMARY | ~2020-04-27 | XMS | Encounter Summary ---
Demographics + + + | Address | [address] | | | [place] [address] | + + + | Home Phone [...] Team Providers + +------+ + | Care Comb Fixer Name | Role | Phone | [...] Pavilion | | | | | | [place], [place] | | | | | | [address] | | | | | | [phone] | | | +--------+ + + + [...] | | | | | | obtained. Line Painting Machine Operator AP and | | | | [...] FINDINGS: | | | | | | Line Painting Machine Operator images of the | | | [...] | | + +---------+ + + | [facility] DEPARTMENT OF | | | [...] | | | | | | obtained. Line Painting Machine Operator AP and | | | | [...] FINDINGS: | | | | | | Line Painting Machine Operator images of the | | | [...] | | + +---------+ + + | [facility] DEPARTMENT OF | | | | | RADIOLOGY | | | | + +---------+ + + documented in this encounter Visit Diagnoses Not on filedocumented in this encounter"
--- OUTSIDE RECORDS SUMMARY | ~2020-04-27 | XMS | Encounter Summary ---
Demographics + + + | Address | [address] | | | [place] [address] | + + + | Home Phone | | + + + | Preferred Language | Unknown | + + + | Marital Status | | + + + | Anabaptism Affiliation | 1076 | + + + | Race | Unknown | + + + | Ethnic Group | Unknown | + + + Author + + + | Author | [facility] | | | and [place] | + + + | Organization | [facility] | | [...] Team Providers + +------+ + | Care Winery Worker Name | Role | Phone | + +------+ + | Eric Krishna MD | PCP | | + +------+ + Encounter Details +--------+ + + + + | Date | Type | Department | Care Team | Description | +--------+ + + + + | 04/27/ | Orders Only | [facility] | Provider, | 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 | without myelopathy | | | | [address] [place], [place] | [place] [address] | or radiculopathy; | | | | [address] | | Spondylosis of | | | | [phone] | | lumbar region | | | [...] [place] | | | | | | [address] | | | | | | | [...]
--- OUTSIDE RECORDS SUMMARY | ~2020-04-27 | XMS | Encounter Summary ---
Demographics + + + | Address | [address] | | | [place] [address] | + + + | Home Phone [...] Team Providers + +------+ + | Care Wooden Barrel Mechanic Name | Role | Phone | [...] [address] | | | | | | [address] | | | | | | [address] | | | | | | [place], [place] | | | | | | [address] | | | | | | [phone] | | | +--------+ + + + [...]
--- OUTSIDE RECORDS SUMMARY | ~2020-04-27 | XMS | Encounter Summary ---
Demographics + + + | Address | [address] | | | [place] [address] | + + + | Home Phone [...] Team Providers + +------+ + | Care Vessel Operator Name | Role | Phone [...] as of this encounter Discharge Summaries Interface, Automobile Club Membership Sales Agent In 04/28/2005 5:10 PM PDTAdmission Date: 09/25/2003 [...]
--- OUTSIDE RECORDS SUMMARY | ~2020-04-27 | XMS | Encounter Summary ---
Demographics + + + | Address | [address] | | | [place] [address] | + + + | Home Phone [...] Providers + +------+ + | Care Surgical Aides Teacher Name | Role | Phone | + +------+ + | Marta Jenkins MATERIALS DIRECTOR | PCP | | + +------+ + Encounter Details +--------+ + + + + | Date | Type | Department | Care Team | Description | +--------+ + + + + | 11/18/ | Abstract | Digestive Health | Clinic, Surgery | | | 2019 | | Center at [facility] [address] | | | | | | [address] [facility] | | | | | | for Health and | | | | | | Healing, Building [address] | | | | | | [place], [place] | | | | | | [address] | | | | | | [phone] | | | +--------+ + + + [...]
--- OUTSIDE RECORDS SUMMARY | ~2020-04-27 | XMS | Encounter Summary ---
Demographics + + + | Address | [address] | | | [place] [address] | + + + | Home Phone [...] + +------+ + | Care Medical Office Assistant Instructor Name | Role | Phone [...] as of this encounter Progress Notes Interface, Creative Writer In - 04/28/2005 5:10 PM PDTClinic Date: 08/31/2003 Orthopedic The patient called on August 31, 2003, requesting a prescription refill for oxycodone. A prescription refill was granted 50, 5 mg oxycodone was sent. This prescription refill was handled by Mariella Camacho. Dev Fleming M.D. / [id number] / [id number] / [id number] / Tdocumented in this encounter Plan of Treatment Not on filedocumented as of this encounter Visit Diagnoses Not on filedocumented in this encounter"
--- OUTSIDE RECORDS SUMMARY | ~2020-04-27 | XMS | Encounter Summary ---
Demographics + + + | Address | [address] | | | [place] [address] | + + + | Home Phone [...] Team Providers + +------+ + | Care Roller Repairer Name | Role | Phone | [...] | | | | | Osteoarthros | [address] | Pavilion | | | | | is, | | [place], [place] | | | | | unspecified | | [address] | | | | | whether | | Phone: | | | | | generalized | | [phone] | | | | | or | | Fax: | | | | | localized, | | [phone] | | | | | pelvic | [...] | | [address] | [address] [place], | | | | | Mailcode: PV430 | [place] [address] | | | | | [facility] | | | | | | [place], [place] | | | | | | [address] | | | | | | [phone] | | | +--------+---------+ + + + [...] Walks with glut medius limp. Uses cane department of natural resources officer. Pain is in inner groin and posteriorly. [...] + + | Performing | Address | City/State/[facility] | Phone Number | | Organization | [...]
--- OUTSIDE RECORDS SUMMARY | ~2020-04-27 | XMS | Encounter Summary ---
Demographics + + + | Address | [address] | | | [place] [address] | + + + | Home Phone [...] Team Providers + +------+ + | Care Pet Food Deboner Name | Role | Phone | + [...] [facility] | | | | | | [address] | | | | | | Loop Physician's | | | | | | [place], [address] [place] [address] | | | | | | [place], [place] | | | | | | [address] | | | | | | [phone] | | | +--------+ + + + [...] | + + + +---------+--------+ + | [place]-3 Fatty | Take by mouth. | | [...]
--- OUTSIDE RECORDS SUMMARY | ~2020-04-27 | XMS | Encounter Summary ---
Demographics + + + | Address | [address] | | | [place] [address] | + + + | Home Phone [...] Team Providers + +------+ + | Care Sausage Tier Name | Role | Phone | [...] as of this encounter Progress Notes Interface, Micrographics Services Supervisor In - 08/31/2006 1:03 AM PSTCLINIC [...] more. PHYSICAL EXAMINATION: She ambulates with a awfwosxs-gx-bndoeg right coxalgic gait leaning over the right [...] her primary care physician. Lloyd Garcia M.D. Car Escort, Orthopedics and Rehabilitation / [id number] / [id number] / [id number] / [id number] C: 10/23/1999 kavita cc: Helio Noland M.D. [facility] [address] Benson Cooper M.D. [facility] Orthopedics Rehabilitation [address], [address] [place] documented in this encounter Plan of Treatment Not on filedocumented as of this encounter Visit Diagnoses Not on filedocumented in this encounter"
--- OUTSIDE RECORDS SUMMARY | ~2020-04-27 | XMS | Encounter Summary ---
Demographics + + + | Address | [address] | | | [place] [address] | + + + | Home Phone [...] Providers + +------+ + | Care Digital Pre Press Operator Name | Role | Phone | + +------+ + | Travis Mcginnis MD | PCP | | + +------+ + Encounter Details +--------+ + + + + | Date | Type | Department | Care Team | Description | +--------+ + + + + | 07/01/ | Abstract | Orthopaedics | Note, Orthopedics | | | 2018 | | [facility] at [place] | Clinic | | | | | for Health and | | | | | | Healing [address] | | | | | | e [place] for | | | | | | Health and Healing, | | | | | | Building | | | | | | Floor [place], [place] | | | | | | [address] | | | | | | [phone] | | | +--------+ + + + [...] bone in back. 2009. Dr Lloyd Harris [facility] R JUAN DAVID 2002 Have you seen anyone for this yet? [facility] in [place]. ED 06/24 [facility] in [facility]. Has had sepsis and MRSA and need to lose 35 lbs per this office. [facility] [phone] 07/03 via phone MRI May 2018 CT [facility] impax X-Ray May 2018 XR [facility] impax CT no Ultrasound no Other imaging [...] will you be traveling for this appointment? [place] Note: If patient traveling greater than 1 [...]
--- OUTSIDE RECORDS SUMMARY | ~2020-04-27 | XMS | Encounter Summary ---
Demographics + + + | Address | [address] | | | [place] [address] | + + + | Home Phone [...] Team Providers + +------+ + | Care Dehydration Plant Operator Name | Role | Phone | + +------+ + | Travis Mcginnis MD | PCP | | + +------+ + Encounter Details +--------+ + + + + | Date | Type | Department | Care Team | Description | +--------+ + + + + | 10/02/ | Hospital | Radiology/Imaging | Royce Durand, | | | 2019 | Encounter | Lab at [facility] [address] | [address] [facility] | | | | | [facility] for | [facility] | | | | | Health and Healing, | [place], [place] | | | | | | [address] | | | | | Floor [place], [place] | [phone] | | | | | [address] | | | | | | [phone] | | | +--------+ + + + [...] + + + +---------+ + + | Avoca-3 Fatty | Take by mouth. | | [...]
--- OUTSIDE RECORDS SUMMARY | ~2020-04-27 | XMS | Encounter Summary ---
Demographics + + + | Address | [address] | | | [place] [address] | + + + | Home Phone [...] Providers + +------+ + | Care Plumbing Instructor Name | Role | Phone | + +------+ + | Marta Jenkins BIOFUELS PRODUCTION MANAGER | PCP | | + +------+ [...] | Jamie Mailcode: [address] [place], | | | | | [place], [place] | [place] [address] | | | | | [address] | | | | | | [phone] | | | +--------+ + + + [...]
--- OUTSIDE RECORDS SUMMARY | ~2020-04-27 | XMS | Encounter Summary ---
Demographics + + + | Address | [address] | | | [place] [address] | + + + | Home Phone [...] Providers + +------+ + | Care Staff Radiation Therapist Name | Role | Phone | + +------+ + PCP | Unavailable | + +------+ + Encounter Details +--------+ + + + + | Date | Type | Department | Care Team | Description | +--------+ + + + + | 02/09/ | Results | Orthopaedics at | Llyod Garcia MD | | | 2003 | Only | [facility] [address] | | | | | | [address] | | | | | | Mailcode: PV430 | | | | | | [facility] | | | | | | [place], [place] | | | | | | [address] | | | | | | [phone] | | | +--------+ + + + [...] | + + + + + | [facility] | [address] | [place] [address] | | | LABORATORY | | | [...] + | [facility] DEPARTMENT | [address] [facility] | [place] [address] | | | PATHOLOGY | [address] | | | + + + + + | [facility] DEPARTMENT | [address] [place] [address] | [place] [address] | | | PATHOLOGY | [address] [...] + + | [facility] DEPARTMENT OF | [address] | [place] [address] | | | PATHOLOGY | [address] | | | + + + + + | [facility] DEPARTMENT OF | [address] | [place] [address] | | | PATHOLOGY | [address] [...] | + + + + + | [facility] | [address] | [place] [address] | | | PATHOLOGY | [address] | | | + + + + + | [facility] | [address] | [place] [address] | | | PATHOLOGY | [address] [...]
--- OUTSIDE RECORDS SUMMARY | ~2020-04-27 | XMS | Encounter Summary ---
Demographics + + + | Address | [address] | | | [place] [address] | + + + | Home Phone [...] Team Providers + +------+ + | Care Residence Life Director Name | Role | Phone | [...] Pavilion | | | | | | [place], [place] | | | | | | [address] | | | | | | [phone] | | | +--------+ + + + [...] | AB, IGM | Test performed by [place] | | | | | | [facility] | | | | | | [facility]. | | | | + + + + + + + + | Specimen | + + | | + + + + + + + | Performing | Address | City/State/Zipcode | Phone Number | | Organization | | | | + + + + + | [facility] | [address] | [place] [address] | | | LABORATORY | | | [...] by | | | | | | [facility] | | | | | | [facility]. | | | | + + + + + + + + | Specimen | + + | | + + + + + + + | Performing | Address | City/State/Zipcode | Phone Number | | Organization | | | | + + + + + | [facility] | [address] | [place] [address] | | | LABORATORY | | | [...] | + + + + + | [facility] | [address] | [place] [address] | | | LABORATORY | | | [...] | AB TOTAL | Test performed by [place] | | | | | | [facility] | | | | | [...] | + + + + + | [facility] | [address] | [place] [address] | | | LABORATORY | | | [...] + + + | [facility] | [address] | [place] [address] | | | PATHOLOGY | [address] | | | + + + + + | [facility] | [address] | [place] [address] | | | PATHOLOGY | [address] [...] + + + + + | [facility] DEPARTMENT OF | [address] | [place] [address] | | | PATHOLOGY | [address] | | | + + + + + | [facility] DEPARTMENT OF | [address] | [place] [address] | | | PATHOLOGY | [address] [...] + + + | [facility] | [facility] | [place] [address] | | | PATHOLOGY | [address] | | | + + + + + | [facility] | [facility] | [place] [address] | | | PATHOLOGY | [address] [...] DEPARTMENT OF | [address] | [place] [address] | | | PATHOLOGY | [address] | | | + + + + + | [place] DEPARTMENT OF | [address] | [place] [address] | | | PATHOLOGY | [address] [...] + + + + + | [facility] DEPARTMENT OF | [address] | [place] [address] | | | PATHOLOGY | [address] | | | + + + + + | [facility] DEPARTMENT OF | [address] | [place] [address] | | | PATHOLOGY | [address] [...] DEPARTMENT OF | [address] | [place] [address] | | | PATHOLOGY | [address] | | | + + + + + | [facility] | [address] | [place] [address] | | | PATHOLOGY | [address] [...] | + + + + + | [facility] | [address] | [place] [address] | | | LABORATORY | | | [...] + + + + + | [facility] DEPARTMENT OF | [address] | [place] [address] | | | PATHOLOGY | [address] | | | + + + + + | [place] DEPARTMENT OF | [address] | [place] [address] | | | PATHOLOGY | [address] [...] + + + + + | [facility] DEPARTMENT OF | [address] | [place] [address] | | | PATHOLOGY | [address] | | | + + + + + | [facility] DEPARTMENT OF | [address] | [place] [address] | | | PATHOLOGY | [address] [...] + + + + | PRODUCT | [id number] | | [facility] | | | UNIT [...] + + + | [facility] | [address] [facility] | [place] [address] | | | PATHOLOGY | [address] | | | + + + + + | [facility] | [address] [place] [address] | [place] [address] | | | PATHOLOGY | [...] + + + + | PRODUCT | [id number] | | [facility] | | | UNIT [...] + + + + + | [facility] DEPARTMENT OF | [address] | [place] [address] | | | PATHOLOGY | [address] | | | + + + + + | [facility] DEPARTMENT OF | [address] | [place] [address] | | | PATHOLOGY | [address] [...] DEPARTMENT OF | [address] | [place] [address] | | | PATHOLOGY | [address] | | | + + + + + | [facility] | [address] | [place] [address] | | | PATHOLOGY | [address] [...] | | | | | available on [employer] and | | | | | | [...] | + + + + + | [facility] | [address] | [place] [address] | | | LAB-MICRO | | | [...] + + + + + | [facility] | [address] | [place] [address] | | | LAB-MICRO | | | [...] | + + + + + | [facility] | [address] | [place] [address] | | | LAB-MICRO | | | | + + + + + documented in this encounter Visit Diagnoses Not on filedocumented in this encounter"
--- OUTSIDE RECORDS SUMMARY | ~2020-04-27 | XMS | Encounter Summary ---
Demographics + + + | Address | [address] | | | [place] [address] | + + + | Home Phone [...] + +------+ + | Care Classroom Technology Coach Name | Role | Phone | [...] Pavilion | | | | | | [place], [place] | | | | | | [address] | | | | | | [phone] | | | +--------+ + + + [...] ON | | | | | | [facility], ACC# [id number], | | | | | | DONE [...]
--- OUTSIDE RECORDS SUMMARY | ~2020-04-27 | XMS | Encounter Summary ---
Demographics + + + | Address | [address] | | | [place] [address] | + + + | Home Phone [...] Team Providers + +------+ + | Care Addiction Counselor Name | Role | Phone | + +------+ + | No Pcp Per Patient | PCP | Unavailable | + +------+ + Encounter Details +--------+ + + + + | Date | Type | Department | Care Team | Description | +--------+ + + + + | 12/15/ | Crate [facility] | Orthopaedics at | Kalyan Arias MD | JUAN DAVID (Total Hip | | 2008 | | [facility] [address] | [address] | Arthroplasty) | | | | [address] | [address] | (Primary Dx) | | | | Mailcode: PV430 | [place], [place] | | | | | [facility] | [address] | | | | | [place], [place] | [phone] | | | | | [address] | | | | | | [phone] | | | +--------+ + + + [...]
--- OUTSIDE RECORDS SUMMARY | ~2020-04-27 | XMS | Encounter Summary ---
Demographics + + + | Address | [address] | | | [place] [address] | + + + | Home Phone [...] Team Providers + +------+ + | Care Strainer Cleaner Name | Role | Phone | [...] as of this encounter Progress Notes Interface, Behavioral Health Specialist In - 08/28/2006 3:05 AM PSTCLINIC DATE: [...] clinical evaluation. Benson Cooper M.D. / SALEEM [id number] / [id number] / [id number] / cc: Lloyd Garcia M.D. documented in this encounter Plan of Treatment Not on filedocumented as of this encounter Visit Diagnoses Not on filedocumented in this encounter"
--- OUTSIDE RECORDS SUMMARY | ~2020-04-27 | XMS | Encounter Summary ---
Demographics + + + | Address | [address] | | | [...] Team Providers + +------+ + | Care Sintering Press Operator Name | Role | Phone [...] | Transcriptions | + + | Interface, Road Machine Operator In - 09/19/2005 9:05 PM PST Date: | | 10/01/2003Attending Surgeon: Lloyd Garcia M.D.Boiler Out(s): | | Benson Boone M.D.Preoperative Diagnoses:Right hip [...] cheilectomy on July | | 2002 via [facility]. It was complicated by greater trochanter [...] Boone, | | Haleigh Garcia M.D.RT / [id number] / [id number] / [id number] / [id number]: 10/01/2003T: 10/02/2003 | |2002, was demonstrating that [...] | | | |RT / HS | |[id number] / [id number] / [id number] / [id number] | | | | | + + documented in this encounter Visit Diagnoses Not on filedocumented in this encounter"
--- OUTSIDE RECORDS SUMMARY | ~2020-04-27 | XMS | Encounter Summary ---
Demographics + + + | Address | [address] | | | [place] [address] | + + + | Home Phone [...] Providers + +------+ + | Care Instructor Dancing Name | Role | Phone | + [...] | Diseases at [facility] | MEGAN Reddy [address] | | | | | [address] | [address] | | | | | Loop Physician's | [place], [place] | | | | | [place], 3rd floor | [address] | | | | | [place], [place] | [phone] | | | | | [address] | | | | | | [phone] | | | +--------+ + + + [...]
--- OUTSIDE RECORDS SUMMARY | ~2020-04-27 | XMS | Encounter Summary ---
Demographics + + + | Address | [address] | | | [place] [address] | + + + | Home Phone [...] Team Providers + +------+ + | Care Bottler Name | Role | Phone | + [...] | Procedures | Roxann Ayala | [place], | | | | | CONSULT TO | [place], [place] | [place] | | | | | ORTHOPEDICS | | | | | | | AND | Phone: | Phone: | | | | | REHABILITATI | [phone] | [phone] | | | | | ON | Fax: | Fax: | | | | | | [phone] | [phone] | +--------+--------+ + + + + Diagnostic [...] | | y | [address] [place] | | | | | Procedures | Roxann Ayala | Research | | | | | MRI SPINE | [place], [place] | Center | | | | | LUMBAR WO | | [place], [place] | | | | | CONT | Phone: | [address] | | | | | | [phone] | Phone: | | | | | | Fax: | [phone] | | | | | | [phone] | Fax: | | | | | | | [phone] | +--------+--------+ + + + + Reason [...] | | | Orthopedics | | | [address] [facility] | | | | | | | [address] | | | | | | | [place], | | | | | | | [place] | | | | | | | [address] | | | | | | | Phone: | | | | | | | [phone] | | | | | | | Fax: | | | | | | | [phone] | +--------+--------+ + + + + Encounter [...] | | | | Mailcode: [id number] | [place], [place] | | | | | [facility] | [address] | | | | | [place], [place] | [phone] | | | | | [address] | | | | | | [phone] | | | +--------+---------+ + + + [...] and plan of care. TYRONE COLBY MD [facility] ORTHOPAEDICS & REHABILITATION [address] [place] [address] Mailcode: [id number] [facility] [address] Taz Grider M D - 07/06/2010 9:32 [...] of | | | | | | [id number]/superior | | | | | | corner, [...]
--- OUTSIDE RECORDS SUMMARY | ~2020-04-27 | XMS | Encounter Summary ---
Demographics + + + | Address | [address] | | | [place] [address] | + + + | Home Phone [...] Team Providers + +------+ + | Care Card Checker Name | Role | Phone | [...] | Head and Neck | MEGAN Reddy [address] [facility] | | | | | Surgery Services at | [facility] | | | | | [facility] [address] | [place], [place] | | | | | [address] | [address] | | | | | Physician's | [phone] | | | | | Pavilion, [facility] floor | | | | | | [place], [place] | | | | | | [address] | | | | | | [phone] | | | +--------+ + + + [...]
--- OUTSIDE RECORDS SUMMARY | ~2020-04-27 | XMS | Encounter Summary ---
Demographics + + + | Address | [address] | | | [place] [address] | + + + | Home Phone [...] Team Providers + +------+ + | Care Wind Tunnel Technician Name | Role | Phone | [...] | Head and Neck | MEGAN Reddy [address] [facility] | | | | | Surgery Services at | [facility] | | | | | [address] | [place], [place] | | | | | [address] | [address] | | | | | Physician's | [phone] | | | | | Pavilion, [facility] floor | | | | | | [place], [place] | | | | | | [address] | | | | | | [phone] | | | +--------+ + + + [...]
--- OUTSIDE RECORDS SUMMARY | ~2020-04-27 | XMS | Encounter Summary ---
Demographics + + + | Address | [address] | | | [place] [address] | + + + | Home Phone [...] Team Providers + +------+ + | Care Banking Services Clerk Name | Role | Phone [...] as of this encounter Progress Notes Interface, Tightener In - 08/28/2006 3:05 AM PSTCLINIC DATE: [...] clinical evaluation. Benson Cooper M.D. / SALEEM [id number] / [id number] / [id number] / cc: Lloyd Garcia M.D. documented in this encounter Plan of Treatment Not on filedocumented as of this encounter Visit Diagnoses Not on filedocumented in this encounter"
--- OUTSIDE RECORDS SUMMARY | ~2020-04-27 | XMS | Encounter Summary ---
Demographics + + + | Address | [address] | | | [place] [address] | + + + | Home Phone [...] + +------+ + | Care Press Operator Automatic Name | Role | Phone | + [...] Terrence | | | | | | [place], [place] | | | | | | [address] | | | | | | [phone] | | | +--------+ + + + [...]
--- OUTSIDE RECORDS SUMMARY | ~2020-04-27 | XMS | Encounter Summary ---
Demographics + + + | Address | [address] | | | [place] [address] | + + + | Home Phone [...] Team Providers + +------+ + | Care Hydraulic Corrugating Machine Operator Name | Role | Phone [...] | | [address] | [place], | | | | | Mailcode: PV430 | [place] [address] | | | | | [facility] | | | | | | [place] | | | | | | [address] | | | | | | [phone] | | | +--------+ + + + [...]
--- OUTSIDE RECORDS SUMMARY | ~2020-04-27 | XMS | Encounter Summary ---
Demographics + + + | Address | [address] | | | [place] [address] | + + + | Home Phone [...] Providers + +------+ + | Care Aircraft Delivery Checker Name | Role | Phone | [...] | | | | | [place], | | | | | | [place] [address] | | | +--------+ + + + [...] | | Patient: SHELBY GALDAMEZ Med Rec: [id number] Sex F Bdate: 1960 | | Date/Time Data | | Entered Into [facility] | | Anesth PostOp | | Surgery Date [id number] 10/11/03 10:54 | | [id number] 10/06/03 10:47 | | [id number] 10/04/03 10:47 | | [id number] 10/01/03 11:25 | | [id number] 09/28/03 10:01 | | [id number] 09/27/03 11:35 | | [id number] 09/14/03 11:13 | | [id number] 08/17/03 10:51 | | Anesthesiologist SEBASTIAN MARIO 10/11/03 10:54 | | ADELIA STEPHEN 10/06/03 10:47 | | GUDELIA TEMPLETON 10/04/03 10:47 | | SEBASTIAN AMRIO 10/01/03 11:25 | | OSWALDO FRASER 09/28/03 [...]
--- OUTSIDE RECORDS SUMMARY | ~2020-04-27 | XMS | Encounter Summary ---
Demographics + + + | Address | [address] | | | [place] [address] | + + + | Home Phone [...] Team Providers + +------+ + | Care County Demonstrator Name | Role | Phone | [...] as of this encounter Progress Notes Interface, Dishing Machine Operator In - 07/28/2006 5:01 AM PSTCLINIC DATE: [...] from earlier surgical intervention. Lloyd Garcia M.D. Surface Lay Out Technician [facility]ics [facility] / [id number] / [id number] / [id number] / cc: Helio Noland M.D. [address] [place], [place] [id number] signed by Interface, Dishing Machine Operator In at 07/28/2006 5: 01 AM PSTInterface, Dishing Machine Operator In - 07/28/2006 5:01 AM PSTCLINIC DATE: [...] weeks' time. Malcom Her M.D. / SALEEM [id number] / [id number] / [id number] / [id number] Tdocumented in this encounter Plan of Treatment Not on filedocumented as of this encounter Visit Diagnoses Not on filedocumented in this encounter"
--- OUTSIDE RECORDS SUMMARY | ~2020-04-27 | XMS | Encounter Summary ---
Demographics + + + | Address | [address] | | | [place] [address] | + + + | Home Phone [...] Providers + +------+ + | Care Team Physician Name | Role | Phone | [...] | | | | Mailcode: PV430 | [place], [place] | not done yet | | | | [facility] | [address] | 07-18.) | | | | [place], [place] | [phone] | | | | | [address] | | | | | | [phone] | | | +--------+ + + + [...]
--- OUTSIDE RECORDS SUMMARY | ~2020-04-27 | XMS | Encounter Summary ---
Demographics + + + | Address | [address] | | | [place] [address] | + + + | Home Phone [...] Team Providers + +------+ + | Care Case Picker Name | Role | Phone | [...] | Transcriptions | + + | Interface, Sewing Machine Adjuster In - 02/27/2006 3:05 AM PDT Date: [...] | | Malcom GarciaRT/aceD: 09/14/2003T: 09/15/2003 9:10 [id number] | |bellberna. The proximal greater trochanter fragment [...] |RT/magalie | | | | A | |[id number] | + + documented in this encounter Visit Diagnoses Not on filedocumented in this encounter"
--- OUTSIDE RECORDS SUMMARY | ~2020-04-27 | XMS | Encounter Summary ---
Demographics + + + | Address | [address] | | | [place] [address] | + + + | Home Phone [...] Team Providers + +------+ + | Care Pipe Cutter Name | Role | Phone | [...]
--- OUTSIDE RECORDS SUMMARY | ~2020-04-27 | XMS | Encounter Summary ---
Demographics + + + | Address | [address] | | | [place] [address] | + + + | Home Phone [...] Providers + +------+ + | Care Sausage Cutter Name | Role | Phone | [...] + + | 11/25/ | Surgery | [facility] | Rustam Schmid MD | RIGHT URETEROSCOPY | | 2016 | | MED CTR OR INTRA OP | [address] [facility] | W/ LASER LITHOTRIPSY | | | | [address] | [place] | RIGHT URETERAL | | | | [place] | [address] | STENT PLACEMENT. | | | | [address] | [phone] | | | | | [phone] | | | +--------+---------+ + + + [...] upon return of cul ture results from [facility]. Stent may be removed by her container shop welder on Saturday 5 or SaturdayDecember 03. AttachmentsThe following attachments cannot be sent through Care Everywhere.DIET, DISCHARGE INSTRUCTIONS FOR EATING A LOW-SALT (SIERRA LEONEAN)KIDNEY STONES,PREVENTING (SIERRA LEONEAN)documented in this encounter Medications at Time of [...] 0545 via ground ambul ance from [facility] in [place]. C/o rt back/flank pain. Dry heaves noted. [...] Schmid MD - 11/25/2016 6:52 AM PST [facility] ADMIT HISTORY AND PHYSICAL Primary Care [...] is a 56 y.o. female, transferred from [place] emergency room with s ymptomatic right ureterolithiasis. [...] Signed by: Rustam Schmid MD, 11/25/2016 7:05 [facility] documented in this enc ounter Nursing Notes [...] Rustam Schmid MD - 2016 11[facility] Pt. Name/Age/: Shelby Galdamez 56 y.o. 1960 Med. Record Number: [id number] Date of Operation/Procedure: 11/25/2016 Preoperative Diagnosis: right ureteral stones [N20.1] Post-Op Diagnosis Codes: * Right ureteral stone [N20.1] Postoperative Diagnosis: Same Surgeon: Rustam Schmid MD Consumer Insight Manager(s): None Anesthesia Provider(s): Anesthesiologist: Helio Barkley MD Fabric Worker Fitter: Rain Edouard Anesthesia Type: General Procedure(s): RIGHT [...] the usual sterile fashion . A 23 Ethiopian cystoscope was introduced to the bladder with [...] were removed. A 25 cm x 14 Ethiopian ureteral access sheath was threaded over the [...] back over the safety wire. A 6 Ethiopian by 26 cm diana ble-J stent was [...] Signed by: Rustam Schmid MD, 11/25/2016 11:01 [facility] documented in this enc ounter Plan of [...] [place] | | | | | | [address] | | | | | | | [...] MD | | | | | | ([address]) on 11/25/2016 | | | | | [...]
--- OUTSIDE RECORDS SUMMARY | ~2020-04-27 | XMS | Encounter Summary ---
Demographics + + + | Address | [address] | | | [place] [address] | + + + | Home Phone [...] Team Providers + +------+ + | Care Talend Developer Name | Role | Phone | [...] Pavilion | | | | | | [place], [place] | | | | | | [address] | | | | | | [phone] | | | +--------+ + + + [...] | + + + + + | [facility] | [address] [facility] | [place] [address] | | | PATHOLOGY | [address] | | | + + + + + | [facility] | [address] [facility] | [place] [address] | | | PATHOLOGY | [address] [...] [facility] DEPARTMENT OF | [address] | [place] [address] | | | PATHOLOGY | [address] | | | + + + + + | [facility] DEPARTMENT | [address] | [place] [address] | | | PATHOLOGY | [address] [...] + + + + | [facility] | [address] | [place] [address] | | | PATHOLOGY | [address] | | | + + + + + | [facility] | [facility] [address] | [place] [address] | | | PATHOLOGY | [address] [...] DEPARTMENT OF | [address] | [place] [address] | | | PATHOLOGY | [address] | | | + + + + + | [place] DEPARTMENT OF | [address] | [place] [address] | | | PATHOLOGY | [address] [...]
--- OUTSIDE RECORDS SUMMARY | ~2020-04-27 | XMS | Encounter Summary ---
Demographics + + + | Address | [address] | | | [place] [address] | + + + | Home Phone [...] Providers + +------+ + | Care Traveling Construction Superintendent Name | Role | Phone | [...] as of this encounter Progress Notes Interface, Printed Circuit Board Pcb Designer In - 04/28/2005 7:30 PM PDTClinic Date: [...] followup is scheduled today. Lloyd Garcia M.D. Irrigationist, Orthopedics and Rehabilitation / [id number] / [id number] / [id number] / [id number] cc: Ninfa Guillen M.D. [address] [place] [address]Wduvbmhyzflirm signed by Interface, Printed Circuit Board Pcb Designer In at 04/28/2005 7:3 0 PM PDTdocumented in this encounter Plan of Treatment Not on filedocumented as of this encounter Visit Diagnoses Not on filedocumented in this encounter"
--- OUTSIDE RECORDS SUMMARY | ~2020-04-27 | XMS | Encounter Summary ---
Demographics + + + | Address | [address] | | | [place] [address] | + + + | Home Phone [...] Team Providers + +------+ + | Care Fertilizer Loader Name | Role | Phone | [...] of this encounter Progress Notes Interface, Lumber Grader In - 08/20/2006 3:01 AM PSTCLINIC DATE: [...] primary care provider. Alpa Ritter LPN / [id number] / [id number] / [id number] / Tdocumented in this encounter Plan of Treatment Not on filedocumented as of this encounter Visit Diagnoses Not on filedocumented in this encounter"
--- OUTSIDE RECORDS SUMMARY | ~2020-04-27 | XMS | Encounter Summary ---
Demographics + + + | Address | [address] | | | [place] [address] | + + + | Home Phone [...] Providers + +------+ + | Care Teaching Artist Name | Role | Phone | [...] | | | | Mailcode: PV430 | [facility] [place] | | | | | [facility] | [address] | | | | | [place], [place] | [phone] | | | | | [address] | | | | | | [phone] | | | +--------+ + + + [...]
--- OUTSIDE RECORDS SUMMARY | ~2020-04-27 | XMS | Encounter Summary ---
Demographics + + + | Address | [address] | | | [place] [address] | + + + | Home Phone [...] Team Providers + +------+ + | Care Vp Informatics Name | Role | Phone | + [...] [address] | | | | | | [place], | | | | | | [place] [address] | | | +--------+ + + + [...]
--- OUTSIDE RECORDS SUMMARY | ~2020-04-27 | XMS | Encounter Summary ---
Demographics + + + | Address | [address] | | | [place] [address] | + + + | Home Phone [...] Team Providers + +------+ + | Care Archeology Faculty Member Name | Role | Phone [...] + | 03/08/ | Telephone | [facility] | Ladarius Martínez PA | Other | | 2016 | | SLEEP DISORDER [address] | [address] | | | | | [address] [place] | [place], [place] | | | | | [place] [address] | [address] | | | | | [phone] | | | +--------+ + + + [...] Miscellaneous Notes Telephone Encounter - Maegan Munoz, Area Director Of Home Health Sales - 03/08/2016 1:09 PM PDTReceived hernan jacinto [...] is in agreement with hernan boone. [facility] umented in this encounter Plan of Treatment +--------+---------+ + + + | Date | Type | Specialty | Care Team | Description | +--------+---------+ + + + | 05/23/ | Office | Pain Medicine | Xiang Sepulveda, | | | 2019 | Visit | | DO [address] | | | | | | [place] | | | | | | [address] | | | | | | | | +--------+---------+ + + + documented as of this encounter Visit Diagnoses Not on filedocumented in this encounter"
--- OUTSIDE RECORDS SUMMARY | ~2020-04-27 | XMS | Encounter Summary ---
Demographics + + + | Address | [address] | | | [place] [address] | + + + | Home Phone [...] Team Providers + +------+ + | Care Cyber Engineer Name | Role | Phone | [...] Pavilion | | | | | | [place], [place] | | | | | | [address] | | | | | | [phone] | | | +--------+ + + + [...] + + + + | [facility] DEPARTMENT | [address] [facility] | [place] [address] | | | PATHOLOGY | [address] | | | + + + + + | [facility] | [address] [place] [address] | [place] [address] | | | PATHOLOGY | [address] [...] DEPARTMENT OF | [address] | [place] [address] | | | PATHOLOGY | [address] | | | + + + + + | [facility] | [address] | [place] [address] | | | PATHOLOGY | [address] | | | + + + + + documented in this encounter Visit Diagnoses Not on filedocumented in this encounter"
--- OUTSIDE RECORDS SUMMARY | ~2020-04-27 | XMS | Encounter Summary ---
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 | without myelopathy | | | | [address] [place], [place] | [place] [address] | or radiculopathy; | | | | [address] | | Spondylosis of | | | | [phone] | | lumbar region | | | [...] [place] | | | | | | [address] | | | | | | | [...]
--- OUTSIDE RECORDS SUMMARY | ~2020-04-27 | XMS | Encounter Summary ---
Demographics + + + | Address | [address] | | | [place] [address] | + + + | Home Phone [...] Team Providers + +------+ + | Care Foot Worker Name | Role | Phone | [...] + + | 05/29/ | Office | [facility] | Xiang Sepulveda, | Chronic pain | | 2019 | Visit | [facility] | DO [address] | syndrome (Primary | | | | [address] | [place], [place] | Dx); Radiculopathy | | | | [address] | [address] | of lumbar region; | | | | [place], [place] | | DDD (degenerative | | | | [address] | | disc disease), | | | | [phone] | | lumbar; Facet | | | [...] 05/07/19 113 Encounter Date: 05/07/2019 Status: Addendum Sole Sewer Hand: Xiang Sepulveda DO (Physician) Related Notes: Original Note by Xiang Sepulveda DO (Physician) filed at 05/07/19 112 Patient returns for medication review and adjustment [...] to physical therapy, mass age therapy, acupuncture, youth care specialist, along with recommended psychological counseling , either privately, or in group sessions offered by private care individuals, community serv ices, or latter day organizations. Appropriate referrals were made at patient [...] Will return to office in 4 weeks, [facility] was consulted and appears appropriate, Urine Toxicology [...] are noted in men and women. Ma ga men will suffer erectile dysfunction with these [...] [place] | | | | | | [address] | | | | | | | [...]
--- OUTSIDE RECORDS SUMMARY | ~2020-04-27 | XMS | Encounter Summary ---
Demographics + + + | Address | [address] | | | [place] [address] | + + + | Home Phone [...] + +------+ + | Care Director Of Maternity Services Name | Role | Phone | [...] Pavilion | | | | | | [place], [place] | | | | | | [address] | | | | | | [phone] | | | +--------+ + + + [...] | | | | | | obtained. Life Insurance Agent AP and | | | | | [...] FINDINGS: | | | | | | Life Insurance Agent images of the | | | | [...] | | | | | | obtained. Life Insurance Agent AP and | | | | | [...] FINDINGS: | | | | | | Life Insurance Agent images of the | | | | [...]
--- OUTSIDE RECORDS SUMMARY | ~2020-04-27 | XMS | Encounter Summary ---
Demographics + + + | Address | [address] | | | [place] [address] | + + + | Home Phone [...] Team Providers + +------+ + | Care Pillar Worker Name | Role | Phone | [...] + + | 11/25/ | Anesthesia | [facility] | Helio Barkley | | | 2017 | Event | MED CTR OR INTRA OP | MD Tien [address] | | | | | [address] | [address] | | | | | [place] | [place] [address] | | | | | [address] | | | | | | [phone] | | | +--------+ + + + [...] Per surgeon request - received abx at [facility] | | | 9 | Antibiotic [...] +----+---+ + + | | 0 | Jerome | | | | 9 | 43-degrees | | | | 5 | | | | | 0 | | | +----+---+ + + | | 0 | Quick Note | Purulent drainage per surgeon | | | 9 | | | | | 5 | | | | | 5 | | | +----+---+ + + | | 1 | Jerome off | | | | 0 | [...] EVALUATION Shelby Galdamez 56 y.o. female 1960 [id number] Procedure(s) RIGHT URETEROSCOPY W/ LASER LITHOTRIPSY RIGHT [...] signed by Helio Barkley MD 11/25/2016 11:11 [facility] nesthesia Proc saurabh Mccarthy - Helio [...] EVALUATION Shelby Galdamez 56 y.o. female 1960 [id number] Procedure(s): RIGHT URETEROSCOPY W/ LASER LITHOTRIPSY (Right [...] [place] | | | | | | [id number] | | | | | | | [...]
--- OUTSIDE RECORDS SUMMARY | ~2020-04-27 | XMS | Encounter Summary ---
Demographics + + + | Address | [address] | | | [place] [address] | + + + | Home Phone [...] Team Providers + +------+ + | Care Test Grader Name | Role | Phone | + +------+ + | Marta Jenkins CLIMATOLOGY TEACHER | PCP | | + +------+ [...] | Jamie Mailcode: [address] [place], | | | | | [place], [place] | [place] [address] | | | | | [address] | | | | | | [phone] | | | +--------+ + + + [...] [place] DEPARTMENT | [address] | [place] [address] | | | PATHOLOGY | [address] | | | + + + + + | [facility] DEPARTMENT OF | [address] | [place] [address] | | | PATHOLOGY | [address] [...] + | [facility] | [address] | [place] [address] | | | PATHOLOGY | [address] | | | + + + + + | [facility] | [address] [place] [address] [address] | [place] [address] | | | PATHOLOGY | [address] [...] + + + | [facility] DEPARTMENT OF | [address] | [place] [address] | | | PATHOLOGY | [address] | | | + + + + + | [facility] DEPARTMENT OF | [address] | [place] [address] | | | PATHOLOGY | [address] [...]
--- OUTSIDE RECORDS SUMMARY | ~2020-04-27 | XMS | Encounter Summary ---
Demographics + + + | Address | [address] | | | [place] [address] | + + + | Home Phone [...] Team Providers + +------+ + | Care Temperature Inspector Name | Role | Phone | [...] as of this encounter Progress Notes Interface, Dog Hair Clipper In - 04/28/2005 8:48 PM PDTClinic Date: [...] well but presented to the ER in [place] approximately a week and half ago with [...] up with her primary care doctor in [place] and return to clinic and see me on an as-needed basis only. Lloyd Garcia M.D. Corporate Sales Representative, Orthopedics and Rehabilitation / [id number] / [id number] / [id number] / [id number] cc: Dr. Pearce [facility] [address] [place] [address] Rinaldi M.D. [address] [place] [address], [place] [id number] signed by Interface, Dog Hair Clipper In at 04/28/2005 8:4 8 PM PDTdocumented in this encounter Plan of Treatment Not on filedocumented as of this encounter Visit Diagnoses Not on filedocumented in this encounter"
--- OUTSIDE RECORDS SUMMARY | ~2020-04-27 | XMS | Encounter Summary ---
Demographics + + + | Address | [address] | | | [place] [address] | + + + | Home Phone [...] Providers + +------+ + | Care Electrical Project Engineer Name | Role | Phone [...] as of this encounter Progress Notes Interface, Speech Communication Instructor In - 04/28/2006 3:06 AM PDTCLINIC DATE: 09/24/2002 ORTHOPEDIC CLINIC SUBJECTIVE: A 42-year-old obese female follows for right hip endstage degenerative joint disease. She returns to clinic today stating that her hip is bothering her again. Her last injection was 6 months ago in February 2002. It lasted approximately 5 months. She continues with a [facility]. She takes Celebrex, multivitamin, and uses [...] fluoroscopically-guided hip injections closer to home in [place], [place], and come here when she fails to respond to schedule her total hip replacement at that time. She seems to prefer to drive across the [place] for her care. Lloyd Garcia M.D. Schedule Maker, Orthopedics and Rehabilitation / [id number] / [id number] / [id number] / [id number] cc: Ninfa Guillen M.D. [address] [place], [place] [id number] signed by Interface, Speech Communication Instructor In at 04/28/2006 3:0 6 AM PDTInterface, Speech Communication Instructor In - 04/28/2006 3:06 AM PDTCLINIC DATE: [...] the way to [facility] from [place], [place]. Shruti Manjarrez MD AM / [id number] / [id number] / [id number] / [id number] cc: Nnifa Guillen M.D. [address] [place], [place] [id number] signed by Interface, Speech Communication Instructor In at 04/28/2006 3:0 6 AM PDTdocumented in this encounter Plan of Treatment Not on filedocumented as of this encounter Visit Diagnoses Not on filedocumented in this encounter"
--- OUTSIDE RECORDS SUMMARY | ~2020-04-27 | XMS | Encounter Summary ---
Demographics + + + | Address | [address] | | | [place] [address] | + + + | Home Phone [...] Team Providers + +------+ + | Care Issue Clerk Name | Role | Phone | [...] | | | | | or | [address] | Pavilion | | | | | localized, | | [place], [place] | | | | | pelvic | | [address] | | | | | region and | | Phone: | | | | | thigh | | [phone] | | | | | Intervertebr | | Fax: | | | | | al lumbar | | [phone] | | | | | disc | [...] [facility] [address] | [address] [facility] | Hip (Primary Dx) | | | | [address] | [address] [place], | | | | | Mailcode: PV430 | [place] [address] | | | | | [facility] | | | | | | [place], [place] | | | | | | [address] | | | | | | [phone] | | | +--------+---------+ + + + [...]
--- OUTSIDE RECORDS SUMMARY | ~2020-04-27 | XMS | Encounter Summary ---
Demographics + + + | Address | [address] | | | [place] [address] | + + + | Home Phone [...] Team Providers + +------+ + | Care Psychodramatist Name | Role | Phone | + [...] + + | [facility] DEPARTMENT | [address] [facility] | [place] [address] | | | PATHOLOGY | [address] | | | + + + + + | [facility] DEPARTMENT OF | [address] [facility] | [place] [address] | | | PATHOLOGY | [address] [...] DEPARTMENT OF | [address] | [place] [address] | | | PATHOLOGY | [address] | | | + + + + + | [facility] DEPARTMENT OF | [address] | [place] [address] | | | PATHOLOGY | [address] [...] + + + + | [facility] | [address] [facility] | [place] [address] | | | PATHOLOGY | [address] | | | + + + + + | [facility] DEPARTMENT OF | [address] [facility] | [place] [address] | | | PATHOLOGY | [address] [...] + + + + | [facility] | [address] | [place] [address] | | | PATHOLOGY | [address] | | | + + + + + | [facility] | [address] | [place] [address] | | | PATHOLOGY | [address] | | | + + + + + documented in this encounter Visit Diagnoses Not on filedocumented in this encounter"
--- OUTSIDE RECORDS SUMMARY | ~2020-04-27 | XMS | Encounter Summary ---
Demographics + + + | Address | [address] | | | [place] [address] | + + + | Home Phone [...] Providers + +------+ + | Care Materials Assistant Name | Role | Phone | [...] as of this encounter Progress Notes Interface, Commercial Real Estate Attorney In - 08/20/2006 3:01 AM PSTCLINIC DATE: [...] primary care provider. Alpa Ritter LPN / [id number] / [id number] / [id number] / Tdocumented in this encounter Plan of Treatment Not on filedocumented as of this encounter Visit Diagnoses Not on filedocumented in this encounter"
--- OUTSIDE RECORDS SUMMARY | ~2020-04-27 | XMS | Encounter Summary ---
Demographics + + + | Address | [address] | | | [place] [address] | + + + | Home Phone [...] Team Providers + +------+ + | Care Weeder Name | Role | Phone | + +------+ + | Marta Jenkins CONSERVATION ENFORCEMENT OFFICER | PCP | | + +------+ [...] | Jamie Mailcode: [address] [place], | | | | | [place], [place] | [place] [address] | | | | | [address] | | | | | | [phone] | | | +--------+ + + + [...]
--- OUTSIDE RECORDS SUMMARY | ~2020-04-27 | XMS | Encounter Summary ---
Demographics + + + | Address | [address] | | | [place] [address] | + + + | Home Phone [...] Providers + +------+ + | Care Computer Education Teacher Name | Role | Phone | [...] | | | | | Osteoarthros | [address] | Pavilion | | | | | is, | | [place], [place] | | | | | unspecified | | [address] | | | | | whether | | Phone: | | | | | generalized | | [phone] | | | | | or | | Fax: | | | | | localized, | | [phone] | | | | | pelvic | [...] | | [address] | [address] [place], | | | | | Mailcode: [id number] | [place] [address] | | | | | [facility] | | | | | | [place], [place] | | | | | | [address] | | | | | | [phone] | | | +--------+---------+ + + + [...] Walks with glut medius limp. Uses cane plastic parts designer. Pain is in inner groin and posteriorly. [...] Performing | Address | City/State/[facility] | Phone Number | | Organization | [...]
--- OUTSIDE RECORDS SUMMARY | ~2020-04-27 | XMS | Encounter Summary ---
Demographics + + + | Address | [address] | | | [place] [address] | + + + | Home Phone [...] Providers + +------+ + | Care Licensed Prosthetist/Orthotist Name | Role | Phone | + [...] | | | | | [place] | [address] | Pavilion | | | | | localized, | | [place], [place] | | | | | pelvic | | [address] | | | | | region and | | Phone: | | | | | thigh | | [phone] | | | | | Intervertebr | | Fax: | | | | | al lumbar | | [phone] | | | | | disc | [...] Pavilion | | | | | | [place], [place] | | | | | | [address] | | | | | | [phone] | | | +--------+---------+ + + + [...] tenderness. Severe gluteus medius limp. Most recent [facility] Laboratory Studies: Normal C-reactive protein at 0.5 (02/10/04), normal [facility] te cell count at 9.4 & [...] this done around the time of the [place] [employer]-up so she can enjoy shopp ing. [...] hip arthroplasty if needed. Lloyd Garcia M.D. Armature Connector, Orthopedics and Rehabilitation documented in this encount [...]
--- OUTSIDE RECORDS SUMMARY | ~2020-04-27 | XMS | Encounter Summary ---
Demographics + + + | Address | [address] | | | [place] [address] | + + + | Home Phone [...] Team Providers + +------+ + | Care Shampoo Person Name | Role | Phone | [...] | 10/06/ | Telephone | [facility] | Augie Valdivia MD | Appointment | | 2012 | | GASTROENTEROLOGY | [address], [place] | | | | | [address] [place] | [address] [place], [place] | | | | | [address] [place], [place] | [address] | | | | | [address] | | | | | | [phone] | | | +--------+ + + + [...] [place] | | | | | | [address] | | | | | | | | +--------+---------+ + + + documented as of this encounter Visit Diagnoses Not on filedocumented in this encounter"
--- OUTSIDE RECORDS SUMMARY | ~2020-04-27 | XMS | Encounter Summary ---
Demographics + + + | Address | [address] | | | [place] [address] | + + + | Home Phone [...] Team Providers + +------+ + | Care Driller Machine Name | Role | Phone | [...] of this encounter Progress Notes Interface, Senior Designer/Art Director In - 07/10/2006 1:00 AM PDTCLINIC DATE: [...] right total hip replacement. Lloyd Garcia M.D. Implementation Project Coordinator Orthopedic and Rehabilitation / [id number] / [id number] / [id number] / cc: JILLIAN TODD MD [address] [id number] signed by Interface, Senior Designer/Art Director In at 07/10/2006 1:0 0 AM PDTdocumented in this encounter Plan of Treatment Not on filedocumented as of this encounter Visit Diagnoses Not on filedocumented in this encounter"
--- OUTSIDE RECORDS SUMMARY | ~2020-04-27 | XMS | Encounter Summary ---
Demographics + + + | Address | [address] | | | [place] [address] | + + + | Home Phone [...] Team Providers + +------+ + | Care Dependency Counselor Name | Role | Phone | [...] | | [address] | [address] [place], | | | | | Mailcode: PV430 | [place] [address] | | | | | [facility] | | | | | | [place] | | | | | | [address] | | | | | | [phone] | | | +--------+ + + + [...]
--- OUTSIDE RECORDS SUMMARY | ~2020-04-27 | XMS | Encounter Summary ---
Demographics + + + | Address | [address] | | | [place] [address] | + + + | Home Phone [...] Providers + +------+ + | Care Bus Driver School Name | Role | Phone | + [...] floor | | | | | | [place], [place] | | | | | | [address] | | | | | | [phone] | | | +--------+------+ + + + [...] | + + + + + | [facility] DEPARTMENT OF | [facility] | [place] [address] | | | PATHOLOGY | [address] | | | + + + + + | [facility] DEPARTMENT OF | [address] [facility] | [place] [address] | | | PATHOLOGY | [address] [...] DEPARTMENT OF | [address] | [place] [address] | | | PATHOLOGY | [address] | | | + + + + + | [facility] DEPARTMENT OF | [address] | [place] [address] | | | PATHOLOGY | [address] [...] + + + | [facility] DEPARTMENT | [address] [facility] | [place] [address] | | | PATHOLOGY | [address] | | | + + + + + | [facility] DEPARTMENT | [address] [facility] | [place] [address] | | | PATHOLOGY | [address] [...] + | [facility] DEPARTMENT OF | [address] | [place] [address] | | | PATHOLOGY | [address] | | | + + + + + | [facility] DEPARTMENT OF | [address] | [place] [address] | | | PATHOLOGY | [address] [...] Lab) [facility] | | | [place] [address] | | | [place] [address] | | + + + + + + + + | Performing | Address | City/State/Zipcode | Phone Number | | Organization | | | | + + + + + | [facility] | [address] | [place] [address] | | | LABORATORY | | | | + + + + + documented in this encounter Visit Diagnoses + + | Diagnosis | + + | Hip pain Pain in joint, pelvic region and thigh | + + | Hip replacement Hip joint replacement by other means | + + documented in this encounter"
--- OUTSIDE RECORDS SUMMARY | ~2020-04-27 | XMS | Encounter Summary ---
Demographics + + + | Address | [address] | | | [place] [address] | + + + | Home Phone [...] Team Providers + +------+ + | Care Ferry Hand Name | Role | Phone | [...] + + | 04/25/ | Office | [facility] | Ladarius Martínez PA | MAMADOU on CPAP (Primary | | 2016 | Visit | SLEEP DISORDER [address] | [address] | Dx) | | | | [address] | [place] | | | | | [place] [address] | [address] | | | | | [phone] | | | +--------+---------+ + + + [...] mask obtained from: [facility] [place] Pressure: 9-16 cm Median: 11.6 cm 95%: [...] Exam Assessment: Problem #1: OBSTRUCTIVE SLEEP APNEA ([id number]) This is controlled with CPAP, but she [...] months, sooner prn. Fifteen minutes were spent ihyx-yf-ggzy, w ith the majority of time spent [...] [place] | | | | | | [id number] | | | | | | | | +--------+---------+ + + + documented as of this encounter Visit Diagnoses + + | Diagnosis | + + | MAMADOU on CPAP - Primary Obstructive sleep apnea (adult) (pediatric) | + + documented in this encounter"
--- OUTSIDE RECORDS SUMMARY | ~2020-04-27 | XMS | Encounter Summary ---
Demographics + + + | Address | [address] | | | [place] [address] | + + + | Home Phone [...] Providers + +------+ + | Care Furnace Builder Name | Role | Phone | [...] | | | at Pankaj Lobato | [facility] | | | | | [address] | [place] [address] | | | | | [address] | | | | | | [place], [address] [place] [address] | | | | | | [place], [place] | | | | | | [address] | | | | | | [phone] | | | +--------+ + + + [...] view image for the detailed interpretation from [employer] results. | CARDIOLOGY | | | | + + + + + + + + | Performing | Address | City/State/Zipcode | Phone Number | | Organization | | | | + + + + + | [facility] DEPT OF | [address] | [place], [place] | | | CARDIOLOGY | [address] | [address] | | + + + + + | [facility] DEPT OF | [address] | [place], [place] | | | CARDIOLOGY | [address] | [address] | | + + + + + documented in this encounter Visit Diagnoses + + | Diagnosis | + + | Other specified pre-operative examination | + + documented in this encounter
--- OUTSIDE RECORDS SUMMARY | ~2020-04-27 | XMS | Encounter Summary ---
Demographics + + + | Address | [address] | | | [place] [address] | + + + | Home Phone [...] Team Providers + +------+ + | Care Mediator Name | Role | Phone | + [...] | | | | Mailcode: [id number] | [place], [place] | | | | | [facility] | [address] | | | | | [place], [place] | [phone] | | | | | [address] | | | | | | [phone] | | | +--------+ + + + [...]
--- OUTSIDE RECORDS SUMMARY | ~2020-04-27 | XMS | Encounter Summary ---
Demographics + + + | Address | [address] | | | [place] [address] | + + + | Home Phone [...] of this encounter Progress Notes Interface, Supervisor Screen Making In - 07/14/2006 1:10 AM PDTCLINIC DATE: [...] we could improve her hip pain. Lloyd Gacria M.D. Final Inspector And Tester, Orthopedics and Rehabilitation / [id number] / [id number] / [id number] / [id number] cc: Helio Xie M.D. [place], [place] [id number] signed by Interface, Supervisor Screen Making In at 07/14/2006 1:1 0 AM PDTdocumented in this encounter Plan of Treatment Not on filedocumented as of this encounter Visit Diagnoses Not on filedocumented in this encounter"
--- OUTSIDE RECORDS SUMMARY | ~2020-04-27 | XMS | Encounter Summary ---
Demographics + + + | Address | [address] | | | [place] [address] | + + + | Home Phone [...] Team Providers + +------+ + | Care Tax Intern Name | Role | Phone | [...] | | [address] | [address] [place], | | | | | Mailcode: PV430 | [place] [address] | | | | | [facility] | | | | | | [place] | | | | | | [address] | | | | | | [phone] | | | +--------+ + + + [...] | Performing | Address | City/State/[facility] | Phone Number | | Organization | | | | + +---------+ + + | [facility] DEPARTMENT OF | | | [...] | + +---------+ + + | [facility] DEPARTMENT | | | | | RADIOLOGY | | | | + +---------+ + + documented in this encounter Visit Diagnoses Not on filedocumented in this encounter"
--- OUTSIDE RECORDS SUMMARY | ~2020-04-27 | XMS | Encounter Summary ---
Demographics + + + | Address | [address] | | | [place] [address] | + + + | Home Phone [...] Team Providers + +------+ + | Care Drawbridge Operator Name | Role | Phone | + +------+ + | Marta Jenkins FLEET DISPATCH MANAGER | PCP | | + +------+ + Encounter Details +--------+ + + + + | Date | Type | Department | Care Team | Description | +--------+ + + + + | 11/19/ | Documentati | Digestive Health | Wanda López ACNP | | | 2019 | on | Center at [facility] [address] | [address] | | | | | [address] Jade [facility] | Roxann Ayala [facility] | | | | | [facility] and | [place] [address] | | | | | Healing, [address] | [phone] | | | | | [place], [place] | | | | | | [address] | | | | | | [phone] | | | +--------+ + + + [...]
--- OUTSIDE RECORDS SUMMARY | ~2020-04-27 | XMS | Encounter Summary ---
Demographics + + + | Address | [address] | | | [place] [address] | + + + | Home Phone [...] Team Providers + +------+ + | Care Quarry Supervisor Name | Role | Phone | [...] | | | | | | [address] [place], [place] | | | | | | [address] | | | | | | [phone] | | | +--------+---------+ + + + [...] | + + +--------+ + + | SC COLLECTION VENOUS | Procedures | Routin | [...] + + + + | PRODUCT | [id number] | | [facility] | | | UNIT [...] DEPARTMENT OF | [address] | [place] [address] | | | PATHOLOGY | [address] | | | + + + + + | [facility] DEPARTMENT OF | [address] | [place] [address] | | | PATHOLOGY | [address] [...] Performed At | + + + | [id number] Estimated GFR > 60 mL/min/1.73 sq m if non- | [facility] | | [place] [id number] Estimated GFR > 60 mL/min/1.73 sq m if | DEPARTMENT OF | | [place] GFR is estimated using the MDRD equation [...] | + + + + + | [facility] | [facility] | [place] [address] | | | PATHOLOGY | [address] | | | + + + + + | [facility] | [address] [place] [address] | [place] [address] | | | PATHOLOGY | [address] [...] | + + + + + | [facility] DEPARTMENT OF | [address] [facility] | [place] [address] | | | PATHOLOGY | [address] | | | + + + + + | [facility] DEPARTMENT OF | [address] [facility] | [place] [address] | | | PATHOLOGY | [address] [...] | + + + + + | [facility] DEPARTMENT OF | [address] | [place] [address] | | | PATHOLOGY | [address] | | | + + + + + | [facility] DEPARTMENT OF | [address] | [place] [address] | | | PATHOLOGY | [address] [...] view image for the detailed interpretation from [employer] results. | CARDIOLOGY | | | | + + + + + + + + | Performing | Address | City/State/Zipcode | Phone Number | | Organization | | | | + + + + + | [facility] DEPT [facility] | [address] | [place], [place] | | | CARDIOLOGY | [facility] | [address] | | + + + + + | [facility] | [address] | [place], [place] | | | CARDIOLOGY | [address] | [address] | | + + + + + documented in this encounter Visit Diagnoses + + | Diagnosis | + + | Other specified pre-operative examination - Primary | + + documented in this encounter
--- OUTSIDE RECORDS SUMMARY | ~2020-04-27 | XMS | Encounter Summary ---
Demographics + + + | Address | [address] | | | [place] [address] | + + + | Home Phone [...] Team Providers + +------+ + | Care Cardiac Nurse Specialist Name | Role | Phone [...] | | | | | | | [address] | | | | | | | [address] | | | | | | | Jamie 2SE/UHN85 | | | | | | | Rose | | | | | | | Terrence | | | | | | | (MNP/OLD [facility]) | | | | | | | [place], | | | | | | | [place] [address] | +--------+--------+ + + + + Encounter Details +--------+ + + + + | Date | Type | Department | Care Team | Description | +--------+ + + + + | 09/06/ | Hospital | [facility] [address] | Tyrone Colby MD | | | 2007 - | Encounter | [address] [facility] [address] | [address] [facility] | | | | | 2SE/UHN85 | [facility] | | | 09/09/ | | Rose Ocampo | [place], [place] | | | 2007 | | (MNP/OLD [facility]) | [address] | | | | | [place], [place] | [phone] | | | | | [address] | | | +--------+ + + + [...] #3. Radiation oncology team was consulted and [facility] administered a single radiation treatment as prophylaxis [...] right hip. 0. Needs continued PT/OT at [facility] 1. You may remove dressing 3 days after your surgery and OK for shower thereafter as long a s the incision is not draining. Sponge bath until dressings off. No soaking in tub, pool, et c. If there is drainage after [address] new guaze on the incision and call the Orthopaedi c clinic [phone]. 2. Continue to take Aspirin 325mg twice a day for a total of 6 weeks. Stop if you have stom ach upset or blood in your stool. Let your surgeon know if you have had GI bleeding in the p ast after taking Aspirin or NSAID's. 3. DO NOT let anyone start you on Antibiotics if they suspect your wound is infected. Call veterinary surgeon [facility] Orthopaedist first. Call [phone] for daytime and weekdays, or [phone] for nights and weekends. If you have [...] Dr. Colby in 2 wks. Please call [phone] now to confirm appointment. Follow Up Tests: (Tests at [facility] must be entered into [facility]) none Condition On Discharge: Good Discharge Medications: [...] incision and call the Orthopaedi c clinic [phone]. 2. Continue to take Aspirin 325mg twice a day for a total of 6 weeks. Stop if you have stom ach upset or blood in your stool. Let your surgeon know if you have had GI bleeding in the p ast after taking Aspirin or NSAID's. 3. DO NOT let anyone start you on Antibiotics if they suspect your wound is infected. Call veterinary surgeon [facility] Orthopaedist first. Call [phone] for daytime and weekdays, or [phone] for nights and weekends. If you have [...] Dr. Colby in 2 wks. Please call [phone] now to confirm appointment. Follow Up Tests: (Tests at [facility] must be entered into [facility]) none Condition On Discharge: Good Discharge [...] Faculty - 8 12:00 AM Shelby Thompson [id number] [facility] REC NUMBER: [id number] NAME : Shelby Galdamez DATE : 1960 Admit Date: 09/06/2008 Discharge Date: 09/09/2008 PHYSICIAN'S REQUEST FOR HOME HEALTH SERVICES Relevant History: Location to receive services if other than home: Allergies: Height: Weight: Ordering Physician: [address] [facility] [address], [place] [address] Physician to follow for ongoing home health orders: PCP Name: PCP Phone: Discharge Need(s): 1. Prison Facility Discharge Vendor: [facility] Discharge Suggested First Visit/Delivery Date: Discharge Service/Equipment: 2. Transportation Discharge Vendor: Medicaid - [place] Discharge Suggested First Visit/Delivery Date: Discharge Service/Equipment: stretcher 12:30pm Radar Mechanic: Tr Rosales - 09/08/2008 2:22 PM PSTRADIATION [...] as able . Tasha Harding OTR//L Pager [phone] Tyrone Haney - 2007 7:55 AM PST [...] and plan of care. TYRONE COLBY MD [facility] [address] 2se/uhn85 [place] [address] Taz Rand - 08/30 5:50 AM PST [...] DEPARTMENT OF | [address] | [place] [address] | | | PATHOLOGY | [address] | | | + + + + + | [facility] DEPARTMENT OF | [address] | [place] [address] | | | PATHOLOGY | [address] [...] + + + | [facility] DEPARTMENT OF | [address] | [place] [address] | | | PATHOLOGY | [address] | | | + + + + + | [facility] DEPARTMENT OF | [address] | [place] [address] | | | PATHOLOGY | [address] [...] + + + + | [facility] | [address] [facility] | [place] [address] | | | PATHOLOGY | [address] | | | + + + + + | [facility] | [address] [facility] | [place] [address] | | | PATHOLOGY | [address] [...] + + + | [facility] DEPARTMENT OF | [address] [facility] | [place] [address] | | | PATHOLOGY | [address] | | | + + + + + | [facility] DEPARTMENT OF | [address] [facility] | [place] [address] | | | PATHOLOGY | [address] [...] + + + | [facility] DEPARTMENT OF | [address] | [place] [address] | | | PATHOLOGY | [address] | | | + + + + + | [facility] DEPARTMENT OF | [address] | [place] [address] | | | PATHOLOGY | [address] [...] | | THERAPY | | | | RECEPTIONIST TELEPHONE OPERATOR | | | | + + + [...] [facility] | [address] | [place], [place] | | | THERAPY | [address] | [address] | | + + + + + | [facility] | [address] | [place], [place] | | | THERAPY | [address] | [address] | | + + + + + [...] Lynn, | | | | | | RECEPTIONIST TELEPHONE OPERATOR | | | | + + + [...] [facility] | [address] | [place], [place] | | | THERAPY | [address] | [address] | | + + + + + | [facility] | [address] | [place], [place] | | | THERAPY | [address] | [address] | | + + + + + [...] + + + | [facility] DEPARTMENT OF | [address] [facility] | [place] [address] | | | PATHOLOGY | [address] | | | + + + + + | [facility] DEPARTMENT OF | [address] [facility] | [place] [address] | | | PATHOLOGY | [address] [...] + + + + | [facility] | [address] [facility] | [place] [address] | | | PATHOLOGY | [address] | | | + + + + + | [facility] | [address] [facility] | [place] [address] | | | PATHOLOGY | [address] [...] | [facility] OF | [address] | [place] [address] | | | PATHOLOGY | [address] | | | + + + + + | [facility] OF | [address] | [place] [address] | | | PATHOLOGY | [address] [...] + + + + | [facility] | [address] [facility] | [place] [address] | | | PATHOLOGY | [address] | | | + + + + + | [facility] | [address] [facility] | [place] [address] | | | PATHOLOGY | [address] [...] Recio, | | | | | | RECEPTIONIST TELEPHONE OPERATOR | | | | + + + [...] [facility] | [address] | [place], [place] | | | THERAPY | [facility] | [address] | | + + + + + | [facility] | [address] | [place], [place] | | | THERAPY | [facility] | [address] | | + + + + + [...] | THERAPY | | | | Hemal, RECEPTIONIST TELEPHONE OPERATOR | | | | + + + [...] [facility] | [address] | [place], [place] | | | THERAPY | [address] | [address] | | + + + + + | [facility] | [address] | [place], [place] | | | THERAPY | [address] [facility] | [address] | | + + + + + [...] Recio, | | | | | | RECEPTIONIST TELEPHONE OPERATOR | | | | + + + [...] | [facility] | [address] [facility] | [place], [place] | | | THERAPY | [facility] | [address] | | + + + + + | [facility] | [address] [facility] | [place], [place] | | | THERAPY | [facility] | [address] | | + + + + + [...] | | | | | | FRANKLYN Rceio | | | | + + + [...] [facility] | [address] | [place], [place] | | | THERAPY | [address] | [address] | | + + + + + | [facility] | [address] | [place], [place] | | | THERAPY | [address] [facility] | [address] | | + + + + + [...] Performed At | + + + | [id number] | | | [id number] TALLY | | | [place] [id number] Date: | | | 09/06/2008 Attending Surgeon: | | | Tyrone Colby M.D. Field Organizer(s): | | | Maximiliano Chisholm M.D. | [...] | | decubitus position with a hip machining associate. The right hind quadrant and | | [...] Tyrone Alcantar | | | Sierra Colby. [facility] [id number] / [id number] / [id number] / | | | | | + + + + + | Procedure Note | + + | Tyrone Colby MD - 09/06/2008 12:00 AM [facility] [id number] | | [id number] CHAD Osei | | [id number] Date: 09/06/2008 Attending Surgeon: Tyrone | | Ortiz Colby M.D. Field Organizer(s): Maximiliano Chisholm M.D. | | Linh Wiggins [...] decubitus position with a hip | | machining associate. Theright hind quadrant and lower extremity were [...] is | | warranted. Tyrone Colby M.D. [facility] / [id number] / [id number] / [id number] /D: | | 09/06/2008T: 09/06/2008 | |anteriorly [...] Colby M.D. | | | | | |[facility] / | |[id number] / [id number] / 13367 / | | | | | | [...] + +---------+ +---+--------+---+ | morphine 5 mg/mL FIRE PROTECTION SPECIALIST infusion | New Bag | 09/07/20 | [...] | | | | | 1955, Until [facility] 09/09/08 at 1941, | | | [...]
--- OUTSIDE RECORDS SUMMARY | ~2020-04-27 | XMS | Encounter Summary ---
Demographics + + + | Address | [address] | | | [place] [address] | + + + | Home Phone [...] Providers + +------+ + | Care Wood Tool Maker Name | Role | Phone | [...] | | | | due to | [place], [place] | [place], | | | | | internal | [address] | [place] [address] | | | | | joint | Phone: | Phone: | | | | | prosthesis | [phone] | [phone] | | | | | ([facility]) | Fax: | Fax: | | | | | | [phone] | [phone] | +--------+--------+ + + + + Encounter [...] | | | | Loop Physician's | [place], [place] | internal joint | | | | [place], 3rd floor | [address] | prosthesis (HCC) | | | | [place], [place] | [phone] | (Primary Dx) | | | | [address] | | | | | | [phone] | | | +--------+---------+ + + + [...] DISEASES CLINIC FOLLOW UP Primary Care Physician: [address] [place] [address] Ms. Galdamez presents to Infectious Diseases Clinic [...] 19, a nd was therefore admitted to [facility] out of concern for R hip infection. [...] Orthopedic follow-up planned in 2 weeks ti tx. In OPAT follow-up on 11/09/2010 Ms. Galdamez [...] W-FE,OTHER MIN (CENTRUM ORAL) Take by mouth. [place]-3 Fatty Acids-Vitamin E (FISH OIL) 1,000 mg [...] follow up in Infectious Diseases Clinic in [place]. We are hap py to be consulted again should infectious complications arise. I spent a total of 20 minutes face to face with the patient and over 50% was time spent in counseling in which we discussed infection, antibiotics, duration of therapy, lab results, a nd follow-up planning. Carolina Putnam PA-C [facility] Department of Infectious Disease Outpatient IV Antibiotic Therapy Clinic (OPAT) Pager ID: [phone] [facility]. 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
--- OUTSIDE RECORDS SUMMARY | ~2020-04-27 | XMS | Encounter Summary ---
Demographics + + + | Address | [address] | | | [place] [address] | + + + | Home Phone [...] Team Providers + +------+ + | Care Shelf Filler Name | Role | Phone | + [...] | | [address] | Roxann Ayala [place], | | | | | Mailcode: PV430 | [place] [address] | | | | | [facility] | | | | | | [place] | | | | | | [address] | | | | | | [phone] | | | +--------+ + + + [...]
--- OUTSIDE RECORDS SUMMARY | ~2020-04-27 | XMS | Encounter Summary ---
Demographics + + + | Address | [address] | | | [place] [address] | + + + | Home Phone [...] + +------+ + | Care Manager Utilization Management Name | Role | Phone | [...] as of this encounter Progress Notes Interface, Spot Cleaner In - 04/15/2006 1:11 AM PDTCLINIC DATE: [...] age and her obesity. Lloyd Garcia M.D. Asset Manager of Orthopedics and Rehabilitation / [id number] / [id number] / [id number] / cc: Rinaldi M.D. [address], [place] [address]Aurpdzwhqxoljt signed by Interface, Spot Cleaner In at 04/15/2006 1:1 1 AM PDTInterface, Spot Cleaner In - 04/15/2006 1:11 AM PDTCLINIC DATE: [...] her injection. MD Lloyd Merritt M.D. / [id number] / [id number] / [id number] / Tdocumented in this encounter Plan of Treatment Not on filedocumented as of this encounter Visit Diagnoses Not on filedocumented in this encounter"
--- OUTSIDE RECORDS SUMMARY | ~2020-04-27 | XMS | Encounter Summary ---
Demographics + + + | Address | [address] | | | [place] [address] | + + + | Home Phone [...] Team Providers + +------+ + | Care Sail Finisher Hand Name | Role | Phone | [...] as of this encounter Progress Notes Interface, Ballistics Expert Forensic In - 08/10/2006 3:02 AM PSTCLINIC DATE: [...] her own car and requires a large mgzuc-kxfwpwd-pici vehicle for her friends to shoe planner her own. She is able to ambulate [...] adduction which is not painful. X-rays show tiltwlym-pk-naegnu right hip DJD with joint space narrowing asymmetrically and large marginal osteocytes, most notably superiorly, posteriorly, as well as inferiorly and less so anteriorly. Right knee x-rays show okvy-fd-dkghyhnu degenerative changes. No radiopaque loose bodies. AP, lateral, and oblique views of the lumbosacral spine show ehdz-ub-ufofswyv facet arthrosis at L3-L4, L4-L5, and L5-S1, right greater than left. Disk spaces are well maintained. There is no spondylolisthesis or spondylolysis. ASSESSMENT: Lknlryvj-zp-vnyqbl hypotrophic osteoarthritis of the right hip; gaje-ok-lcqvbwvo degenerative changes of the right knee; and zfrl-co-cjtuhiyk, right greater than left, lumbar and lumbosacral [...] the right hip. Lloyd Garcia M.D. / [id number] / [id number] / [id number] / 23067 C: 06/12/2000 otilia cc: JILLIAN TODD M.D. PJuan JoseOJuan Jose [place], [place] [address]Lyhgvvphjkflwm signed by Interface, Ballistics Expert Forensic In at 08/10/2006 3: 02 AM PSTdocumented in this encounter Plan of Treatment Not on filedocumented as of this encounter Visit Diagnoses Not on filedocumented in this encounter"
--- OUTSIDE RECORDS SUMMARY | ~2020-04-27 | XMS | Encounter Summary ---
Demographics + + + | Address | [address] | | | [place] [address] | + + + | Home Phone [...] + + | 11/25/ | Office | [facility] | Xiang Sepulveda, | Chronic pain | | 2019 | Visit | [facility] | DO [address] | syndrome (Primary | | | | DOLOROLOGY [address] | [place] | Dx); Other chronic | | | | [address] | [address] | pain; DDD | | | | [place], [place] | | (degenerative disc | | | | [address] | | disease), lumbar; | | | | [phone] | | Decreased range of | | [...] but not limited to phys ical therapy, managed care liaison, acupuncture, massage therapy, and nutritional health counse [...] Author Status Filed Medication Agreement Antonella Sprague, Supervisor Home Restoration Service Active 11/25/2019 10:52 AM Pain Contract- Dr. Sepulveda 11/25/2019 PEG Pain screening tool (Pain, enjoyment, general activity) Total score: (Printable questionnaires in [place] ) Interpretation of Total Score: PEG scores are used to track changes over time. It should de crease after therapy has begun. Last 4 PEG Scores: No flowsheet data found. Opioid Risk Tool (ORT): Total Score Pulse: 104 Resp: 20 BP: 184/69 SpO2: 97 % (From Chronic Pain tab; printable questionnaires in [place]) Interpretation of Total Score: 0 to 3 [...] ; Surg andrés: Rustam Schmid MD; Location: [facility] MAIN [place] Review of Systems Constitutional: Positive [...] reviewed, listed controlled substances are consistent with [facility] prescriptions and patient reported use. [...] imited to physical therapy, massage therapy, acupuncture, managed care liaison, along with jabari mmended psychological counseling, either privately, or in group sessions offered by private care individuals, community services, or mormonism organizations. Appropriate referrals were made at patient [...] are noted in men and women. Ma tx men will suffer erectile dysfunction with these [...] and complications with the passage of time. shelter use is also associated with depressions, and liver and renal failure. Finally, these medicines are associated with both physical and emotional addiction and can be difficult to stop after taking for only a few weeks. This document has been created using [employer] Voice Recognition software and [employer]. The entry has been reviewed for content and accuracy, but there may still exist "sound alike" continuous still operator word errors and/or unintended additions [...] RODRIGUEZ | | | | | | [id number] | | | | | | | [...]
--- OUTSIDE RECORDS SUMMARY | ~2020-04-27 | XMS | Encounter Summary ---
Demographics + + + | Address | [address] | | | [place] [address] | + + + | Home Phone [...] Providers + +------+ + | Care Building Attendant Name | Role | Phone | [...]
--- OUTSIDE RECORDS SUMMARY | ~2020-04-27 | XMS | Encounter Summary ---
Demographics + + + | Address | [address] | | | [place] [address] | + + + | Home Phone [...] Team Providers + +------+ + | Care Toggle Press Folder And Feeder Name | Role | Phone | [...] | | | | | | [address] [place], [place] | | | | | | [address] | | | | | | [phone] | | | +--------+---------+ + + + [...] | + + +--------+ + + | MA COLLECTION VENOUS | Procedures | Routin | [...] + + + + | PRODUCT | [id number] | | [facility] | | | UNIT [...] DEPARTMENT OF | [address] | [place] [address] | | | PATHOLOGY | [address] | | | + + + + + | [facility] DEPARTMENT OF | [address] | [place] [address] | | | PATHOLOGY | [address] [...] Performed At | + + + | [id number] Estimated GFR > 60 mL/min/1.73 sq m if non- | [facility] | | [place] [address] Estimated GFR > 60 mL/min/1.73 sq m if | DEPARTMENT OF | | [place] GFR is estimated using the MDRD equation [...] + + + + | [facility] | [facility] [address] | [place] [address] | | | PATHOLOGY | [address] | | | + + + + + | [facility] | [address] [place] [address] | [place] [address] | | | PATHOLOGY | [address] [...] [facility] | [address] [facility] | [place] [address] | | | PATHOLOGY | [address] | | | + + + + + | [facility] DEPARTMENT OF | [address] [facility] | [place] [address] | | | PATHOLOGY | [address] [...] DEPARTMENT OF | [address] | [place] [address] | | | PATHOLOGY | [address] | | | + + + + + | [facility] DEPARTMENT OF | [address] | [place] [address] | | | PATHOLOGY | [address] [...] view image for the detailed interpretation from Triage results. | CARDIOLOGY | | | | + + + + + + + + | Performing | Address | City/State/Zipcode | Phone Number | | Organization | | | | + + + + + | [facility] DEPT OF | [address] | [place], [place] | | | CARDIOLOGY | [facility] | [address] | | + + + + + | [facility] OF | [address] | [place], [place] | | | CARDIOLOGY | [address] | [address] | | + + + + + documented in this encounter Visit Diagnoses + + | Diagnosis | + + | Other specified pre-operative examination - Primary | + + documented in this encounter
--- OUTSIDE RECORDS SUMMARY | ~2020-04-27 | XMS | Encounter Summary ---
Demographics + + + | Address | [address] | | | [place] [address] | + + + | Home Phone [...] + +------+ + | Care Technical Sales Support Manager Name | Role | Phone | [...] | unspecified | [address] | Rd [place], | | | | | whether | [place], [place] | [place] | | | | | generalized | [address] | [address] | | | | | or | Phone: | Phone: | | | | | localized, | [phone] | [phone] | | | | | pelvic | Fax: | Fax: | | | | | region and | [phone] | [phone] | | | | | thigh | [...] | Office | Orthopaedics at | Tesfaye Sanez | JUAN DAVID (Total Hip | | 2008 | Visit | [address] [address] | [address] | Arthroplasty) | | | | [address] | | (Primary Dx) | | | | Mailcode: PV430 | | | | | | [facility] | | | | | | [place], [place] | | | | | | [address] | | | | | | [phone] | | | +--------+---------+ + + + [...] charted by JORDY Germain. KALYAN COLBY MD [facility] [address] [place] [address] Mailcode: Pv430 [place] [address] Tesfaye Haskins PA-C - 10/14/2008 [...] is being worked up now by a mac artist for this issue. OBJECTIVE: - On examination [...]
--- OUTSIDE RECORDS SUMMARY | ~2020-04-27 | XMS | Encounter Summary ---
Demographics + + + | Address | [address] | | | [place] [address] | + + + | Home Phone [...] Providers + +------+ + | Care Engineering Inspector Name | Role | Phone | + +------+ + | Travis Mcginnis MD | PCP | | + +------+ + Encounter Details +--------+ + + + + | Date | Type | Department | Care Team | Description | +--------+ + + + + | 02/20/ | Truss Driver Helper | Orthopaedics at | Kalyan Arias MD | Hip replacement | | 2009 | | [address] [address] | [address] | (Primary Dx) | | | | [address] | [facility] | | | | | Mailcode: PV430 | [facility] [place] | | | | | [facility] | [address] | | | | | [place], [place] | [phone] | | | | | [address] | | | | | | [phone] | | | +--------+ + + + [...]
--- OUTSIDE RECORDS SUMMARY | ~2020-04-27 | XMS | Encounter Summary ---
Demographics + + + | Address | [address] | | | [place] [address] | + + + | Home Phone [...] Team Providers + +------+ + | Care Sales/Marketing Name | Role | Phone | + [...] as of this encounter Progress Notes Interface, Asphalt Tar And Gravel Roofer In - 04/28/2005 6:17 PM PDTClinic Date: [...] is completed this weekend. Lloyd Garcia M.D. Supervisor Cd Area, Orthopedics and Rehabilitation / [id number] / [id number] / [id number] / [id number] cc: Ninfa Guillen M.D. [address] [place] [address], [place] [id number] signed by Interface, Asphalt Tar And Gravel Roofer In at 04/28/2005 6:1 7 PM PDTdocumented in this encounter Plan of Treatment Not on filedocumented as of this encounter Visit Diagnoses Not on filedocumented in this encounter"
--- OUTSIDE RECORDS SUMMARY | ~2020-04-27 | XMS | Encounter Summary ---
Demographics + + + | Address | [address] | | | [place] [address] | + + + | Home Phone [...] Team Providers + +------+ + | Care Hospital Education Coordinator Name | Role | Phone [...] of this encounter Progress Notes Interface, Supervisor Paste Mixing In - 04/15/2006 1:11 AM PDTCLINIC DATE: [...] age and her obesity. Lloyd Garcia M.D. [place] Wind Instrument Tuner of Orthopedics and Rehabilitation / [id number] / [id number] / [id number] / cc: Rinaldi M.D. [address], [place] [id number] signed by Interface, Supervisor Paste Mixing In at 04/15/2006 1:1 1 AM PDTInterface, Supervisor Paste Mixing In - 04/15/2006 1:11 AM PDTCLINIC DATE: [...] her injection. MD Lloyd Merritt M.D. / [id number] / [id number] / [id number] / Tdocumented in this encounter Plan of Treatment Not on filedocumented as of this encounter Visit Diagnoses Not on filedocumented in this encounter"
--- OUTSIDE RECORDS SUMMARY | ~2020-04-27 | XMS | Encounter Summary ---
Demographics + + + | Address | [address] | | | [place] [address] | + + + | Home Phone [...] Team Providers + +------+ + | Care Scrubber System Attendant Name | Role | Phone | [...] | | | | Mailcode: [id number] | [facility] [place] | | | | | [facility] | [address] | | | | | [place], [place] | [phone] | | | | | [address] | | | | | | [phone] | | | +--------+ + + + [...]
--- OUTSIDE RECORDS SUMMARY | ~2020-04-27 | XMS | Encounter Summary ---
Demographics + + + | Address | [address] | | | [place] [address] | + + + | Home Phone [...] Team Providers + +------+ + | Care Disc Pad Knockout Worker Name | Role | Phone | [...] + + + + | 10/24/ | Missile And Missile Checkout Technician | Infectious | Carolina Putnam | | | 2010 | | [facility] at [facility] | K, PAXavierC [address] | | | | | [address] | [address] | | | | | Loop Physician's | [place], [place] | | | | | [place], 3rd floor | [address] | | | | | [place], [place] | [phone] | | | | | [address] | | | | | | [phone] | | | +--------+ + + + [...]
--- OUTSIDE RECORDS SUMMARY | ~2020-04-27 | XMS | Encounter Summary ---
Demographics + + + | Address | [address] | | | [place] [address] | + + + | Home Phone [...] + +------+ + | Care Sales Representative Supervisor Name | Role | Phone | [...] [facility] | | | | | | [address] | | | | | | Loop Physician's | | | | | | [place], [address] [place] [address] | | | | | | [place], [place] | | | | | | [address] | | | | | | [phone] | | | +--------+ + + + [...] | + + + +---------+--------+ + | [place]-3 Fatty | Take by mouth. | | [...]
--- OUTSIDE RECORDS SUMMARY | ~2020-04-27 | XMS | Encounter Summary ---
Demographics + + + | Address | [address] | | | [place] [address] | + + + | Home Phone [...] Providers + +------+ + | Care Security Administrator Name | Role | Phone | [...] Pavilion | | | | | | [place], [place] | | | | | | [address] | | | | | | [phone] | | | +--------+ + + + [...] + + | [facility] DEPARTMENT | [address] [facility] | [place] [address] | | | PATHOLOGY | [address] | | | + + + + + | [facility] | [address] [place] [address] | [place] [address] | | | PATHOLOGY | [address] [...] DEPARTMENT OF | [address] | [place] [address] | | | PATHOLOGY | [address] | | | + + + + + | [facility] | [address] | [place] [address] | | | PATHOLOGY | [address] | | | + + + + + documented in this encounter Visit Diagnoses Not on filedocumented in this encounter"
--- OUTSIDE RECORDS SUMMARY | ~2020-04-27 | XMS | Encounter Summary ---
Demographics + + + | Address | [address] | | | [place] [address] | + + + | Home Phone [...] Providers + +------+ + | Care Bicycle Taxi Driver Name | Role | Phone | [...] Pavilion | | | | | | [place], [place] | | | | | | [address] | | | | | | [phone] | | | +--------+ + + + [...] of | | | | | | Syer-Yzrmjdzijqv-lqjbbag | | | | | | jose. [...] | + +---------+ + + | [facility] DEPARTMENT OF | | | | | [...] | + +---------+ + + | [facility] DEPARTMENT OF | | | | | [...] | + +---------+ + + | [facility] DEPARTMENT | | | | | RADIOLOGY [...] | + +---------+ + + | [facility] DEPARTMENT OF | | | | | RADIOLOGY | | | | + +---------+ + + documented in this encounter Visit Diagnoses Not on filedocumented in this encounter
--- OUTSIDE RECORDS SUMMARY | ~2020-04-27 | XMS | Encounter Summary ---
Demographics + + + | Address | [address] | | | [place] [address] | + + + | Home Phone [...] Providers + +------+ + | Care Heat Engineering Teacher Name | Role | Phone | [...] + + + + | 11/13/ | Naturopathic Physician | Infectious | Carolina Putnam | | | 2010 | | [facility] at [facility] | K, PA-C [address] | | | | | [address] | [facility] | | | | | Loop Physician's | [place], [place] | | | | | [place], 3rd floor | [address] | | | | | [place], [place] | [phone] | | | | | [address] | | | | | | [phone] | | | +--------+ + + + [...]
--- OUTSIDE RECORDS SUMMARY | ~2020-04-27 | XMS | Encounter Summary ---
Demographics + + + | Address | [address] | | | [place] [address] | + + + | Home Phone [...] Providers + +------+ + | Care Platen Press Feeder Name | Role | Phone | + +------+ + | Marta Jenkins MANAGER SUPPLIER | PCP | | + +------+ + [...] | Jamie Mailcode: [address] [place], | | | | | [place], [place] | [place] [address] | | | | | [address] | | | | | | [phone] | | | +--------+ + + + [...]
--- OUTSIDE RECORDS SUMMARY | ~2020-04-27 | XMS | Encounter Summary ---
Demographics + + + | Address | [address] | | | [place] [address] | + + + | Home Phone [...] | Casandra Smith | ROBERTO | [place] | | + + + + + Care Team Providers + +------+ + | Care Hat Measurer Name | Role | Phone | + [...] | | | is of hip | [facility] | [address] | | | | | Procedures | Rd | Rd [place], | | | | | CONSULT TO | [place], [place] | [place] [address] | | | | | ORTHOPEDICS | [address] | | | | | | AND [...] | | | | | UMATILMARIJA | [address] [facility] | | | | | | MEDICAL | [facility] | | | | | | CLINIC [address] | [address] | | | | | | [address] | [place] | | | | | | [place], [place] | [address] | | | | | | [address] | | +--------+--------+ + + + + [...] Pavilion | | | | | | [place], [place] | | | | | | [address] | | | | | | [phone] | | | +--------+---------+ + + + [...] 05/23/2004, for hip pain who returns to [facility] after a right hip injection arthrogram [...] states, that he recieves a letter from [facility] indicating the continued need. She has [...]
--- OUTSIDE RECORDS SUMMARY | ~2020-04-27 | XMS | Encounter Summary ---
Demographics + + + | Address | [address] | | | [place] [address] | + + + | Home Phone [...] Team Providers + +------+ + | Care Installation & Maintenance Executive Name | Role | Phone | [...] | 2019 | | WOJCIECH GAITAN | Munitions Worker | blood work done) | | | | [address] [place], [place] | | | | | | [address] | | | | | | [phone] | | | +--------+ + + + [...] Miscellaneous Notes Telephone Encounter - Kina Hendrix Munitions Worker - 07/23/2019 4:48 PM PDTCalled & spoke to patient to let her know per Dr. Medrano that the blood work she got done was not the correct ones that Dr. Medrano needed. I let her know she needed to go to [facility] lab to get her blood work [...] [place] | | | | | | [address] | | | | | | | | +--------+---------+ + + + documented as of this encounter Visit Diagnoses Not on filedocumented in this encounter
--- OUTSIDE RECORDS SUMMARY | ~2020-04-27 | XMS | Encounter Summary ---
Demographics + + + | Address | [address] | | | [place] [address] | + + + | Home Phone [...] Providers + +------+ + | Care Senior Materials Scientist Name | Role | Phone | [...] as of this encounter Progress Notes Interface, Host/Hostess In - 08/28/2006 3:05 AM PSTCLINIC DATE: [...] to Dr. Gant. Benson Cooper M.D. / [id number] / [id number] / [id number] / [id number] C: 11/27/1999 kavita cc: Helio Noland M.D. [facility] [address] Lloyd Garcia M.D. Department of Orthopedics documented in this encounter Plan of Treatment Not on filedocumented as of this encounter Visit Diagnoses Not on filedocumented in this encounter"
--- OUTSIDE RECORDS SUMMARY | ~2020-04-27 | XMS | Encounter Summary ---
Demographics + + + | Address | [address] | | | [place] [address] | + + + | Home Phone [...] Team Providers + +------+ + | Care Telemarketer Supervisor Name | Role | Phone | + +------+ + | Marta Jenkins PODIATRIC AIDE | PCP | | + +------+ + [...] | Jamie Mailcode: [address] [place], | | | | | [place], [place] | [place] [address] | | | | | [address] | | | | | | [phone] | | | +--------+ + + + [...]
--- OUTSIDE RECORDS SUMMARY | ~2020-04-27 | XMS | Encounter Summary ---
Demographics + + + | Address | [address] | | | [place] [address] | + + + | Home Phone [...] Providers + +------+ + | Care Senior Grants Officer Name | Role | Phone | [...] as of this encounter Progress Notes Interface, Gis Scientist In - 06/19/2006 1:01 AM PDT [place] [facility] [place] [address] [place] [address] FAX Department of Orthopaedics, [facility] [employer] [id number] October 15, 2001 Lloyd Garcia M.D. Department of Orthopedics and Rehabilitation/[facility] [id number] RE: SHELBY GALDAMEZ MR #: [id number] DOS: 10/15/[address] Desai: Thank you [...] Sincerely, Kalyan Wu M.D. TE / HS [id number] / [id number] / [id number] / [id number] cc: Chan Krishna M.D. Department of Orthopedics and Rehabilitation/[facility] OP-31 Helio Noland M.D. [address] [place], [place] [address]Huvryigvisibvc signed by Interface, Gis Scientist In at 06/19/2006 1: 01 AM PDTdocumented in this encounter Plan of Treatment Not on filedocumented as of this encounter Visit Diagnoses Not on filedocumented in this encounter"
--- OUTSIDE RECORDS SUMMARY | ~2020-04-27 | XMS | Encounter Summary ---
Demographics + + + | Address | [address] | | | [place] [address] | + + + | Home Phone [...] Providers + +------+ + | Care Plant Engineering Manager Name | Role | Phone [...] as of this encounter Progress Notes Interface, Combine Inspector In - 04/19/2006 3:09 AM PDTCLINIC DATE: [...] questions. Jason Castano M.A. Orthopedics / HS [id number] / [id number] / [id number] / Tdocumented in this encounter Plan of Treatment Not on filedocumented as of this encounter Visit Diagnoses Not on filedocumented in this encounter"
--- OUTSIDE RECORDS SUMMARY | ~2020-04-27 | XMS | Encounter Summary ---
Demographics + + + | Address | [address] | | | [place] [address] | + + + | Home Phone [...] Providers + +------+ + | Care Data Integration Analyst Name | Role | Phone | + +------+ + | Travis Mcginnis MD | PCP | | + +------+ + Encounter Details +--------+ + + + + | Date | Type | Department | Care Team | Description | +--------+ + + + + | 11/09/ | Documentati | Vascular Access at | Lis Banuelos | | | 2010 | on | [facility] [address] | HERMINIO Swain [address] | | | | | [address] | [address] | | | | | [facility] | Rd [place], [place] | | | | | [place], [place] | [address] | | | | | [address] | | | | | | [phone] | | | +--------+ + + + [...]
--- OUTSIDE RECORDS SUMMARY | ~2020-04-27 | XMS | Encounter Summary ---
Demographics + + + | Address | [address] | | | [place] [address] | + + + | Home Phone [...] Providers + +------+ + | Care Wheel Shop Supervisor Name | Role | Phone [...] as of this encounter Progress Notes Interface, Wood Flour Miller In - 08/16/2006 1:10 AM PSTCLINIC DATE: [...] be requiring surgical intervention. Lloyd Garcia M.D. Casting Carrier of Orthopedics and Rehabilitation / [id number] / [id number] / [id number] / cc: Helio Noland M.D. Juan JoseJuan Jose [place], [place] [address]Ivrzijhxijpcma signed by Interface, Wood Flour Miller In at 08/16/2006 1: 10 AM PSTdocumented in this encounter Plan of Treatment Not on filedocumented as of this encounter Visit Diagnoses Not on filedocumented in this encounter"
--- OUTSIDE RECORDS SUMMARY | ~2020-04-27 | XMS | Encounter Summary ---
Demographics + + + | Address | [address] | | | [place] [address] | + + + | Home Phone [...] Team Providers + +------+ + | Care Cold Food Packer Name | Role | Phone | + +------+ + | Marta Jenkins MARINE OPERATIONS COORDINATOR | PCP | | + +------+ [...] | Jamie Mailcode: RP[address] [place], | | | | | [place], [place] | [place] [address] | | | | | [address] | | | | | | [phone] | | | +--------+ + + + [...] | + + + + + | [facility] | [address] | [place] [address] | | | LAB-MICRO | | | [...] | | | | | performed at [facility] | | | | | | [facility] | | | | | | Laboratory. | | | | + + + + + + + + | Specimen | + + | | + + + + + + + | Performing | Address | City/State/Zipcode | Phone Number | | Organization | | | | + + + + + | [facility] | [address] | [place] [address] | | | LAB-MICRO | | | [...] + + + | [facility] | [address] | [place] [address] | | | LAB-MICRO | | | [...] + + + | [facility] | [address] | [place] [address] | | | LAB-MICRO | | | [...] + + + | [facility] | [address] | [place] [address] | | | LAB-MICRO | | | [...] | | | | | performed at [facility] | | | | | | [facility] | | | | | | Laboratory | | | | + + + + + + + + | Specimen | + + | | + + + + + + + | Performing | Address | City/State/Zipcode | Phone Number | | Organization | | | | + + + + + | [facility] | [address] | [place] [address] | | | LAB-MICRO | | | [...] | | | | Test performed at [facility] | | | | | | [facility] | | | | | | Laboratory. | | | | + + + + + + + + | Specimen | + + | | + + + + + + + | Performing | Address | City/State/Zipcode | Phone Number | | Organization | | | | + + + + + | [facility] | [address] | [place] [address] | | | LAB-MICRO | | | [...] | | | | | performed at [facility] | | | | | | [facility] | | | | | | Laboratory. | | | | + + + + + + + + | Specimen | + + | | + + + + + + + | Performing | Address | City/State/Zipcode | Phone Number | | Organization | | | | + + + + + | [facility] | [address] | [place] [address] | | | LAB-MICRO | | | [...] + + + | [facility] | [address] | [place] [address] | | | LAB-MICRO | | | [...] | + + + + + | [facility] | [address] | [place] [address] | | | LAB-MICRO | | | [...] + + + | [facility] | [address] | [place] [address] | | | LAB-MICRO | | | [...] | | | | | performed at [facility] | | | | | | [facility] | | | | | | Laboratory | | | | + + + + + + + + | Specimen | + + | | + + + + + + + | Performing | Address | City/State/Zipcode | Phone Number | | Organization | | | | + + + + + | [facility] | [address] | [place] [address] | | | LAB-MICRO | | | [...] + + + | [facility] | [address] | [place] [address] | | | LAB-MICRO | | | [...] | | | | | performed at [facility] | | | | | | [facility] | | | | | | Laboratory. | | | | + + + + + + + + | Specimen | + + | | + + + + + + + | Performing | Address | City/State/Zipcode | Phone Number | | Organization | | | | + + + + + | [facility] | [address] | [place] [address] | | | LAB-MICRO | | | | + + + + + documented in this encounter Visit Diagnoses Not on filedocumented in this encounter"
--- OUTSIDE RECORDS SUMMARY | ~2020-04-27 | XMS | Encounter Summary ---
Demographics + + + | Address | [address] | | | [place] [address] | + + + | Home Phone [...] Providers + +------+ + | Care Clinic Director Name | Role | Phone | [...] | | | unspecified | | Rd [place], | | | | | whether | | [place] | | | | | generalized | | [address] | | | | | or | | Phone: | | | | | localized, | | [phone] | | | | | pelvic | | Fax: | | | | | region and | | [phone] | | | | | thigh | [...] | | | | Mailcode: PV430 | [place], [place] | | | | | Phys[facility] | [address] | | | | | [place], [place] | [phone] | | | | | [address] | | | | | | [phone] | | | +--------+---------+ + + + [...]
--- OUTSIDE RECORDS SUMMARY | ~2020-04-27 | XMS | Encounter Summary ---
Demographics + + + | Address | [address] | | | [place] [address] | + + + | Home Phone [...] Team Providers + +------+ + | Care Gym Manager Name | Role | Phone | [...] | | | at [facility] | [facility] | | | | | [address] | [place] [address] | | | | | [address] | | | | | | Luis Alfredo, [address] [place] [address] | | | | | | [place], [place] | | | | | | [address] | | | | | | [phone] | | | +--------+ + + + [...] view image for the detailed interpretation from Xobni results. | CARDIOLOGY | | | | + + + + + + + + | Performing | Address | City/State/Zipcode | Phone Number | | Organization | | | | + + + + + | [facility] | [address] | [place], [place] | | | CARDIOLOGY | [address] | [address] | | + + + + + | [facility] | [address] | [place], [place] | | | CARDIOLOGY | [address] | [address] | | + + + + + documented in this encounter Visit Diagnoses + + | Diagnosis | + + | Other specified pre-operative examination | + + documented in this encounter
--- OUTSIDE RECORDS SUMMARY | ~2020-04-27 | XMS | Encounter Summary ---
Demographics + + + | Address | [address] | | | [place] [address] | + + + | Home Phone [...] Team Providers + +------+ + | Care Equipment Tech Name | Role | Phone | [...] as of this encounter Progress Notes Interface, Allocation Analyst In - 11/23/2005 2:04 AM PST [id number] [facility] Date: 11/07/2005 Clinic: Orthopaedics Shelby Galdamez is a 46-year-old woman seen for evaluation of pain in the right hip and back. She provides a history that she was operated on in [address] Garcia at [facility] for osteoarthritis. She apparently had a [...] given a request to take home to [place] to see if she can get into [...] could formulate some plans. Her phone is #[phone]. Gino Baker M.D. KEE / SALEEM [id number] / [id number] / [id number] / [id number] cc: Quintin Acevedo [facility] [address] [place] [address] Electronically signed by Gino Baker 11-22-2005 02:58:59 PM documented i n this encounter Plan of Treatment Not on filedocumented as of this encounter Visit Diagnoses Not on filedocumented in this encounter"
--- OUTSIDE RECORDS SUMMARY | ~2020-04-27 | XMS | Encounter Summary ---
Demographics + + + | Address | [address] | | | [place] [address] | + + + | Home Phone | | + + + | Preferred Language | Unknown | + + + | Marital Status | | + + + | Mandaen Affiliation | [id number] | + + + | Race | Unknown | + + + | Ethnic Group | Unknown | + + + Author + + + | Author | [facility] | | | and [place] | + + + | Organization | [facility] | | | [...] Team Providers + +------+ + | Care Foxer Name | Role | Phone | + [...] + | 01/13/ | Office | [facility] | Ladarius Martínez PA | MAMADOU on CPAP (Primary | | 2012 | Visit | SLEEP DISORDER [address] | [address] | Dx) | | | | [address] [place] | [place], [place] | | | | | [place] [address] | [address] | | | | | [phone] | | | +--------+---------+ + + + [...] Insomnia Severity Index Insomnia Severity Index 6 [place] Sleepiness Scale Sitting and reading 0 Watching [...] Ravi obtained from: [facility] [place] pressure is: 9 cm CPAP download shows [...] This is a common problem with the Optoro and Owlr. Review of Systems Objective: Physical Exam Assessment: Problem # 1: OBSTRUCTIVE SLEEP APNEA (ICD-327.23) This appears to be controlled with CPAP. She has done pretty well with her CPAP compliance , but feels that she would benefit from replacing her CPAP. Plan: She is to continue with CPAP indefinitely. We have faxed a prescription to [facility] for a Res Med S9 with a pressure range of 9-16 cm. I will follow up again in 2 months, sooner prn. Fifteen minutes were spent soik-tf-incp, w ith the majority of time spent in counseling. Ladarius Martínez PA-C cc: Dr. Barry documented in this enco unter Miscellaneous Notes Miscellaneous - ONBASE SCAN [facility] - 01/13/2013 12:00 AM PDT iscellaneous - ONBASE SCAN [facility] - 01/13/2013 12:00 AM PDTEle ctronically signed [...] | | | | | | [place] | | | | | | [address] | | | | | | | | +--------+---------+ + + + documented as of this encounter Visit Diagnoses + + | Diagnosis | + + | MAMADOU on CPAP - Primary Obstructive sleep apnea (adult) (pediatric) | + + documented in this encounter"
--- OUTSIDE RECORDS SUMMARY | ~2020-04-27 | XMS | Encounter Summary ---
Demographics + + + | Address | [address] | | | [place] [address] | + + + | Home Phone [...] Team Providers + +------+ + | Care Committee Member Name | Role | Phone | + +------+ + PCP | Unavailable | + +------+ + Encounter Details +--------+ + + + + | Date | Type | Department | Care Team | Description | +--------+ + + + + | 12/07/ | [facility] | [facility] | Helio Ahn | | | 2002 | Encounter | MED CTR SLEEP | MD Candie [address] | | | | | CENTER [address] | [address] [place] | | | | | [place] | [place] [address] | | | | | [address] | [phone] | | | | | [phone] | | | +--------+ + + + [...] DR | | | | | | [place] | | | | | | [address] | | | | | | | | +--------+---------+ + + + documented as of this encounter Visit Diagnoses Not on filedocumented in this encounter"
--- OUTSIDE RECORDS SUMMARY | ~2020-04-27 | XMS | Encounter Summary ---
Demographics + + + | Address | [address] | | | [place] [address] | + + + | Home Phone [...] Providers + +------+ + | Care Team Supervisor Name | Role | Phone | + +------+ + PCP | Unavailable | + +------+ + Encounter Details +--------+ + + + + | Date | Type | Department | Care Team | Description | +--------+ + + + + | 10/21/ | [facility] | [facility] | Helio Ahn | | | 2006 | Encounter | MED CTR SLEEP | MD Candie [address] | | | | | CENTER [address] | [address] [place] | | | | | [place] | [place] [address] | | | | | [address] | [phone] | | | | | [phone] | | | +--------+ + + + [...] [place] | | | | | | [address] | | | | | | | | +--------+---------+ + + + documented as of this encounter Visit Diagnoses Not on filedocumented in this encounter"
--- OUTSIDE RECORDS SUMMARY | ~2020-04-27 | XMS | Encounter Summary ---
Demographics + + + | Address | [address] | | | [place] [address] | + + + | Home Phone [...] Providers + +------+ + | Care Care Management Coordinator Name | Role | Phone | [...] as of this encounter Progress Notes Interface, Digital Court Reporter In - 04/28/2005 5:10 PM PDT Referred [...]
--- OUTSIDE RECORDS SUMMARY | ~2020-04-27 | XMS | Encounter Summary ---
Demographics + + + | Address | [address] | | | [place] [address] | + + + | Home Phone [...] + +------+ + | Care Blood Bank Booking Clerk Name | Role | Phone | + +------+ + | Marta Jenkins FRONT OFFICE REPRESENTATIVE | PCP | | + +------+ + [...] [address] | | | | | | [place], [place] | | | | | | [address] | | | | | | [phone] | | | +--------+ + + + [...]
--- OUTSIDE RECORDS SUMMARY | ~2020-04-27 | XMS | Encounter Summary ---
Demographics + + + | Address | [address] | | | [place] [address] | + + + | Home Phone [...] Providers + +------+ + | Care Accounting Software Specialist Name | Role | Phone | [...] as of this encounter Progress Notes Interface, Auto Transport Driver In - 04/28/2005 6:17 PM PDTClinic Date: [...] see us. [facility] [...] a chance to get back home to [place]. We will call her tomorrow and reiterate how important it is that we take care of this fluid collection in her hip and try to get her better. Dori Wong. Lloyd Garcia M.D. Attending Physician /jamil P [id number] signed by Interface, Auto Transport Driver In at 04/28/2005 6:17 PM PDTdoc umented in this encounter Plan of Treatment Not on filedocumented as of this encounter Visit Diagnoses Not on filedocumented in this encounter"
--- OUTSIDE RECORDS SUMMARY | ~2020-04-27 | XMS | Encounter Summary ---
Demographics + + + | Address | [address] | | | [place] [address] | + + + | Home Phone [...] Team Providers + +------+ + | Care Escrow Representative Name | Role | Phone | [...] + | 01/31/ | Office | [facility] | Ladarius Martínez PA | MAMADOU on CPAP (Primary | | 2015 | Visit | SLEEP DISORDER [address] | [address] | Dx) | | | | [address] [place] | [place], [place] | | | | | [place] [address] | [address] | | | | | [phone] | | | +--------+---------+ + + + [...] S9 with nasal mask obtained from: In [facility] in [place] Pressure: 9-16 cm Median: 11.5 cm 95%: [...] been interested in getting her equipment from [facility] in [place] instead of In [facility]. Review of Systems Objective: Physical Exam [...] year, sooner prn. Fifteen minutes were spent [id number], wit h the majority of time spent [...] [place] | | | | | | [id number] | | | | | | | | +--------+---------+ + + + documented as of this encounter Visit Diagnoses + + | Diagnosis | + + | MAMADOU on CPAP - Primary Obstructive sleep apnea (adult) (pediatric) | + + documented in this encounter"
--- OUTSIDE RECORDS SUMMARY | ~2020-04-27 | XMS | Encounter Summary ---
Demographics + + + | Address | [address] | | | [place] [address] | + + + | Home Phone [...] Providers + +------+ + | Care Tube Wrapper Name | Role | Phone | + +------+ + PCP | Unavailable | + +------+ + Encounter Details +--------+ + + + + | Date | Type | Department | Care Team | Description | +--------+ + + + + | 05/07/ | Hospital | [facility] | Helio Ahn | | | 2001 | Encounter | MED CTR SLEEP | MD Candie [address] | | | | | CENTER [address] | [address] [place] | | | | | [place] | [place] [address] | | | | | [address] | [phone] | | | | | [phone] | | | +--------+ + + + [...] [place] | | | | | | [address] | | | | | | | | +--------+---------+ + + + documented as of this encounter Visit Diagnoses Not on filedocumented in this encounter"
--- OUTSIDE RECORDS SUMMARY | ~2020-04-27 | XMS | Encounter Summary ---
Demographics + + + | Address | [address] | | | [place] [address] | + + + | Home Phone [...] Providers + +------+ + | Care Ladle Puller Name | Role | Phone | [...] | | | | | SACROILIAC | [place], [place] | 10th Floor | | | | | JOINT | [address] | [place], [place] | | | | | W/NEEDLE | Phone: | [address] | | | | | PLCMT | [phone] | Phone: | | | | | | Fax: | [phone] | | | | | | [phone] | Fax: | | | | | | | [phone] | +--------+--------+ + + + + Encounter Details +--------+ + + + + | Date | Type | Department | Care Team | Description | +--------+ + + + + | 10/12/ | Hospital | Diagnostic Imaging | | | | 2009 | Encounter | Services at [facility] | | | | | | [address] | | | | | | Roxann Ayala [facility] | | | | | | [address] | | | | | | [place], [place] | | | | | | [address] | | | | | | [phone] | | | +--------+ + + + [...] | | | | | | the integrated logistics support manager. | | | | | | Geospatial Program Management Officer imaging was | | | | | [...]
--- OUTSIDE RECORDS SUMMARY | ~2020-04-27 | XMS | Encounter Summary ---
Demographics + + + | Address | [address] | | | [place] [address] | + + + | Home Phone [...] Team Providers + +------+ + | Care Amusement Equipment Operator Name | Role | Phone [...] as of this encounter Progress Notes Interface, Portable Feed Mill Operator In - 06/19/2006 1:01 AM PDTCLINIC DATE: [...] None. SOCIAL HISTORY: She lives in [facility], and she is currently not working. [...] the appointment. Her current phone number is [phone]. At this point, we will not schedule her for a followup until we have these other appointments, and then we will have her followup with . Again, we will forward our recommendations to him. Pricilla Metcalf M.D. Kalyan Wu M.D. [facility] / [id number] / [id number] / [id number] / [phone] cc: Lloyd Garcia M.D. [id number] docume nted in this encounter Plan of Treatment Not on filedocumented as of this encounter Visit Diagnoses Not on filedocumented in this encounter"
--- OUTSIDE RECORDS SUMMARY | ~2020-04-27 | XMS | Encounter Summary ---
Demographics + + + | Address | [address] | | | [place] [address] | + + + | Home Phone [...] Team Providers + +------+ + | Care Knot Bumper Name | Role | Phone | + +------+ + PCP | Unavailable | + +------+ + Encounter Details +--------+ + + + + | Date | Type | Department | Care Team | Description | +--------+ + + + + | 06/24/ | Results | | Other, Faculty | | | 2000 | Only | | [phone] | | +--------+ + + + + [...] + +---------+ + + | [facility] | | | | | RADIOLOGY | | | | + +---------+ + + documented in this encounter Visit Diagnoses Not on filedocumented in this encounter"
--- OUTSIDE RECORDS SUMMARY | ~2020-04-27 | XMS | Encounter Summary ---
Demographics + + + | Address | [address] | | | [place] [address] | + + + | Home Phone [...] Providers + +------+ + | Care Supervisor Last Model Department Name | Role | Phone | + [...] | | | | | | [place], [facility] Floor | | | | | | [place] [employer], [place] | | | | | | [address] | | | | | | [phone] | | | +--------+ + + + [...] + + + +---------+ + + | [place]-3 Fatty | Take by mouth. | | [...]
--- OUTSIDE RECORDS SUMMARY | ~2020-04-27 | XMS | Encounter Summary ---
Demographics + + + | Address | [address] | | | [place] [address] | + + + | Home Phone | | + + + | Preferred Language | Unknown | + + + | Marital Status | | + + + | Samaritan Affiliation | 1076 | + + + | Race | Unknown | + + + | Ethnic Group | Unknown | + + + Author + + + | Author | [facility] | | | and [place] | + + + | Organization | [facility] | | [...] Team Providers + +------+ + | Care Recruitment Consultant Name | Role | Phone | [...] [address] [place] | | | | | [place] [address] | [place] [address] | | | | | [phone] | [phone] | | | | | | | [...] [place] | | | | | | [address] | | | | | | | | +--------+---------+ + + + documented as of this encounter Visit Diagnoses Not on filedocumented in this encounter"
--- OUTSIDE RECORDS SUMMARY | ~2020-04-27 | XMS | Encounter Summary ---
Demographics + + + | Address | [address] | | | [place] [address] | + + + | Home Phone [...] Team Providers + +------+ + | Care Dipping Machine Operator Name | Role | Phone [...] [place] | | | | | | [place], [place] | | | | | | [address] | | | | | | [phone] | | | +--------+ + + + [...]
--- OUTSIDE RECORDS SUMMARY | ~2020-04-27 | XMS | Encounter Summary ---
Demographics + + + | Address | [address] | | | [place] [address] | + + + | Home Phone | | + + + | Preferred Language | Unknown | + + + | Marital Status | | + + + | Orthodoxy Affiliation | 1076 | + + + | Race | Unknown | + + + | Ethnic Group | Unknown | + + + Author + + + | Author | [facility] | | | and [place] | + + + | Organization | [facility] | | [...] + | 04/24/ | Office | [facility] | Ladarius Martínez PA | MAMADOU on CPAP (Primary | | 2012 | Visit | SLEEP DISORDER [address] | [address] | Dx) | | | | [address] [place] | [place], [place] | | | | | [place] [address] | [address] | | | | | [phone] | | | +--------+---------+ + + + [...] 04/24/2013 11:06 AM PDT Subjective: Patient ID: hSelby Galdamez is a 53 y.o. female. HPI last office visit was: 03/17/2013 date of polysomnography: 09/18/2006 AHI: 57.1 O2%: 87% with minutes below 88% Machine type: aRvi obtained from: [facility] [place] pressure is: 9 cm ResMed S9: Pressure: [...] to go to [facility] [place] to get a fitting for her mask that will allow it to connect to her hose properly or make an adjustmen t to the mask that keep it connected. I will follow up again in 1 month, sooner prn. Fifteen minutes were spent lpbz-no-aiiq, wi th the majority of time spent [...] [place] | | | | | | [address] | | | | | | | | +--------+---------+ + + + documented as of this encounter Visit Diagnoses + + | Diagnosis | + + | MAMADOU on CPAP - Primary Obstructive sleep apnea (adult) (pediatric) | + + documented in this encounter"
--- OUTSIDE RECORDS SUMMARY | ~2020-04-27 | XMS | Encounter Summary ---
Demographics + + + | Address | [address] | | | [place] [address] | + + + | Home Phone [...] Team Providers + +------+ + | Care Torch Burner Name | Role | Phone | + [...] | | | | Mailcode: [id number] | [place], [place] | | | | | [facility] | [address] | | | | | [place], [place] | [phone] | | | | | [address] | | | | | | [phone] | | | +--------+ + + + [...]
--- OUTSIDE RECORDS SUMMARY | ~2020-04-27 | XMS | Encounter Summary ---
Demographics + + + | Address | [address] | | | [place] [address] | + + + | Home Phone [...] Team Providers + +------+ + | Care Tower Equipment Installer Name | Role | Phone | [...] | unspecified | [address] | Rd [place], | | | | | whether | [place], [place] | [place] | | | | | generalized | [address] | [address] | | | | | or | Phone: | Phone: | | | | | localized, | [phone] | [phone] | | | | | pelvic | Fax: | Fax: | | | | | region and | [phone] | [phone] | | | | | thigh | | | | | | | Osteoarthrit | | | | | | | is of Hip | | | | | | | Procedures | | | | | | | ME TOTAL HIP | | | | | [...] | | | | | | ME REMOVAL | | | | | | | OF ISCHIAL | | | | | | | BURSA ME | | | | | | [...] Pavilion | | | | | | [place], [place] | | | | | | [address] | | | | | | [phone] | | | +--------+---------+ + + + [...] JORDY Germain. KALYAN COLBY MD [facility] [address] [place] [address] Mailcode: [id number] [place] [address] Tesfaye Haskins PA-C - 10/14/2008 [...] is being worked up now by a cytogenetic technologist for this issue. OBJECTIVE: - On examination [...]
--- OUTSIDE RECORDS SUMMARY | ~2020-04-27 | XMS | Encounter Summary ---
Demographics + + + | Address | [address] | | | [place] [address] | + + + | Home Phone [...] Rd | | | | | | [place], [place] | | | | | | [address] | | | +--------+ + + + [...]
--- OUTSIDE RECORDS SUMMARY | ~2020-04-27 | XMS | Encounter Summary ---
Demographics + + + | Address | [address] | | | [place] [address] | + + + | Home Phone [...] Team Providers + +------+ + | Care Cio Name | Role | Phone | + [...] + | 01/13/ | Office | [facility] | Ladarius Martínez PA | MAMADOU on CPAP (Primary | | 2012 | Visit | SLEEP DISORDER [address] | [address] | Dx) | | | | [address] [place] | [place], [place] | | | | | [place] [address] | [address] | | | | | [phone] | | | +--------+---------+ + + + [...] Insomnia Severity Index Insomnia Severity Index 6 Swisher Sleepiness Scale Sitting and reading 0 Watching [...] Ravi obtained from: [facility] [place] pressure is: 9 cm CPAP download shows [...] This is a common problem with the Simmr and Ku[place]. Review of Systems Objective: Physical Exam Assessment: Problem # 1: OBSTRUCTIVE SLEEP APNEA (ICD-327.23) This appears to be controlled with CPAP. She has done pretty well with her CPAP compliance , but feels that she would benefit from replacing her CPAP. Plan: She is to continue with CPAP indefinitely. We have faxed a prescription to [facility] for a Res Med S9 with a pressure range of 9-16 cm. I will follow up again in 2 months, sooner prn. Fifteen minutes were spent hayo-yh-jshp, w ith the majority of time spent in counseling. Ladarius Martínez PA-C cc: Dr. Barry documented in this enco unter Miscellaneous Notes Miscellaneous - ONBASE SCAN [facility] - 01/13/2013 12:00 AM PDT iscellaneous - ONBASE SCAN [facility] - 01/13/2013 12:00 AM PDTEle ctronically signed [...] | | | | | | [place] | | | | | | [address] | | | | | | | | +--------+---------+ + + + documented as of this encounter Visit Diagnoses + + | Diagnosis | + + | MAMADOU on CPAP - Primary Obstructive sleep apnea (adult) (pediatric) | + + documented in this encounter"
--- OUTSIDE RECORDS SUMMARY | ~2020-04-27 | XMS | Encounter Summary ---
Demographics + + + | Address | [address] | | | [place] [address] | + + + | Home Phone [...] Team Providers + +------+ + | Care Engrosser Name | Role | Phone | + +------+ + | Marta Jenkins PLUMBING DESIGNER | PCP | | + +------+ + [...] | Jamie Mailcode: [id number] [place], | | | | | [place], [place] | [place] [address] | | | | | [address] | | | | | | [phone] | | | +--------+ + + + [...] | + + + + + | [facility] | [address] | [place] [address] | | | LAB-MICRO | | | [...] | | | | | performed at [facility] | | | | | | [facility] | | | | | | Laboratory. | | | | + + + + + + + + | Specimen | + + | | + + + + + + + | Performing | Address | City/State/Zipcode | Phone Number | | Organization | | | | + + + + + | [facility] | [address] | [place] [address] | | | LAB-MICRO | | | [...] + + + | [facility] | [address] | [place] [address] | | | LAB-MICRO | | | [...] + + + | [facility] | [address] | [place] [address] | | | LAB-MICRO | | | [...] + + + | [facility] | [address] | [place] [address] | | | LAB-MICRO | | | [...] | | | | | performed at [facility] | | | | | | [facility] | | | | | | Laboratory | | | | + + + + + + + + | Specimen | + + | | + + + + + + + | Performing | Address | City/State/Zipcode | Phone Number | | Organization | | | | + + + + + | [facility] | [address] | [place] [address] | | | LAB-MICRO | | | [...] | | | | Test performed at [facility] | | | | | | [facility] | | | | | | Laboratory. | | | | + + + + + + + + | Specimen | + + | | + + + + + + + | Performing | Address | City/State/Zipcode | Phone Number | | Organization | | | | + + + + + | [facility] | [address] | [place] [address] | | | LAB-MICRO | | | [...] | | | | | performed at [facility] | | | | | | [facility] | | | | | | Laboratory. | | | | + + + + + + + + | Specimen | + + | | + + + + + + + | Performing | Address | City/State/Zipcode | Phone Number | | Organization | | | | + + + + + | [facility] | [address] | [place] [address] | | | LAB-MICRO | | | [...] + + + | [facility] | [address] | [place] [address] | | | LAB-MICRO | | | [...] | + + + + + | [facility] | [address] | [place] [address] | | | LAB-MICRO | | | [...] + + + | [facility] | [address] | [place] [address] | | | LAB-MICRO | | | [...] | | | | | performed at [facility] | | | | | | [facility] | | | | | | Laboratory | | | | + + + + + + + + | Specimen | + + | | + + + + + + + | Performing | Address | City/State/Zipcode | Phone Number | | Organization | | | | + + + + + | [facility] | [address] | [place] [address] | | | LAB-MICRO | | | [...] + + + | [facility] | [address] | [place] [address] | | | LAB-MICRO | | | [...] | | | | | performed at [facility] | | | | | | [facility] | | | | | | Laboratory. | | | | + + + + + + + + | Specimen | + + | | + + + + + + + | Performing | Address | City/State/Zipcode | Phone Number | | Organization | | | | + + + + + | [facility] | [address] | [place] [address] | | | LAB-MICRO | | | | + + + + + documented in this encounter Visit Diagnoses Not on filedocumented in this encounter"
--- OUTSIDE RECORDS SUMMARY | ~2020-04-27 | XMS | Encounter Summary ---
Demographics + + + | Address | [address] | | | [place] [address] | + + + | Home Phone | | + + + | Preferred Language | Unknown | + + + | Marital Status | | + + + | Zoroastrian Affiliation | 1076 | + + + | Race | Unknown | + + + | Ethnic Group | Unknown | + + + Author + + + | Author | [facility] | | | and [place] | + + + | Organization | [facility] | | [...] Providers + +------+ + | Care Paper Pattern Folder Name | Role | Phone | [...] 2011 | | GASTROENTEROLOGY | [address] [place] | | | | | [address] | [address] [place], [place] | | | | | [address] [place], [place] | [address] | | | | | [address] | | | | | | [phone] | | | +--------+ + + + [...] pcp and is wonde ring if in [place] can do the procedure. She will call [...] [place] | | | | | | [address] | | | | | | | | +--------+---------+ + + + documented as of this encounter Visit Diagnoses Not on filedocumented in this encounter
--- OUTSIDE RECORDS SUMMARY | ~2020-04-27 | XMS | Encounter Summary ---
Demographics + + + | Address | [address] | | | [place] [address] | + + + | Home Phone [...] Team Providers + +------+ + | Care Citrix Engineer Name | Role | Phone | [...] | SLEEP DISORDER [address] | [address] | | | | | [place] | [place] | | | | | [place] [address] | [id number] | | | | | [phone] | | | +--------+--------+ + + + [...] [place] | | | | | | [address] | | | | | | | | +--------+---------+ + + + documented as of this encounter Visit Diagnoses + + | Diagnosis | + + | Obstructive sleep apnea (adult) (pediatric) - Primary | + + documented in this encounter"
--- OUTSIDE RECORDS SUMMARY | ~2020-04-27 | XMS | Encounter Summary ---
Demographics + + + | Address | [address] | | | [place] [address] | + + + | Home Phone [...] Providers + +------+ + | Care Air Intelligence Specialist Name | Role | Phone | [...] PPV | | | | | | [address] | | | | | | Loop Physician's | | | | | | [place], [facility] Floor | | | | | | [place], [place] | | | | | | [address] | | | | | | [phone] | | | +--------+ + + + [...] + + + +---------+ + + | [place]-3 Fatty | Take by mouth. | | [...]
--- OUTSIDE RECORDS SUMMARY | ~2020-04-27 | XMS | Encounter Summary ---
Demographics + + + | Address | [address] | | | [place] [address] | + + + | Home Phone [...] Team Providers + +------+ + | Care Overlock Operator Name | Role | Phone | [...] | | | | | (sacroiliac) | [facility], | | | | | joint | Rd | 10th Floor | | | | | inflammation | [place], [place] | [place], [place] | | | | | ([facility]) | [address] | [address] | | | | | Procedures | | Phone: | | | | | CT INJ | | [phone] | | | | | SACROILIAC | | Fax: | | | | | JOINT | | [phone] | | | | | W/NEEDLE | | | | | | | PLCMT | | | +--------+--------+ + + + + Encounter Details +--------+ + + + + | Date | Type | Department | Care Team | Description | +--------+ + + + + | 03/22/ | Hospital | Diagnostic Imaging | | | | 2009 | Encounter | Services at [facility] | | | | | | [address] | | | | | | [place] | | | | | | [address] | | | | | | [place], [place] | | | | | | [address] | | | | | | [phone] | | | +--------+ + + + [...] | + + + +---------+--------+ + | [place]-3 Fatty | Take by mouth. | | [...] None. | | | | | | Janitorial Services Supervisor: Dr. Moss, | | | | | | vice president sales and marketing. | | | | | | Manager Legal: | | | | | | Sue, [...] | | | lead performance support analyst. Contract Officer | | | | | | imaging [...]
--- OUTSIDE RECORDS SUMMARY | ~2020-04-27 | XMS | Encounter Summary ---
Demographics + + + | Address | [address] | | | [place] [address] | + + + | Home Phone [...] Team Providers + +------+ + | Care Candy Dipper Hand Name | Role | Phone | [...]
--- OUTSIDE RECORDS SUMMARY | ~2020-04-27 | XMS | Encounter Summary ---
Demographics + + + | Address | [address] | | | [place] [address] | + + + | Home Phone [...] Team Providers + +------+ + | Care Echocardiographer Name | Role | Phone | + +------+ + | Marta Jenkins CLIENT SUPPORT CONSULTANT | PCP | | + +------+ [...] | Jamie Mailcode: [address] [place], | | | | | [place], [place] | [place] [address] | | | | | [address] | | | | | | [phone] | | | +--------+ + + + [...]
--- OUTSIDE RECORDS SUMMARY | ~2020-04-27 | XMS | Encounter Summary ---
Demographics + + + | Address | [address] | | | [place] [address] | + + + | Home Phone [...] Team Providers + +------+ + | Care Labeler Name | Role | Phone | [...] as of this encounter Progress Notes Interface, Turnstile Collector In - 06/19/2006 1:01 AM PDTCLINIC DATE: [...] ALLERGIES: None. SOCIAL HISTORY: She lives in [facility], and she is currently not working. She [...] the appointment. Her current phone number is [phone]. At this point, we will not schedule her for a followup until we have these other appointments, and then we will have her followup with . Again, we will forward our recommendations to him. Pricilla Metcalf M.D. Kalyan Wu M.D. [facility] / [id number] / [id number] / [id number] / [phone] cc: Lloyd Garcia M.D. [id number] docume nted in this encounter Plan of Treatment Not on filedocumented as of this encounter Visit Diagnoses Not on filedocumented in this encounter"
--- OUTSIDE RECORDS SUMMARY | ~2020-04-27 | XMS | Encounter Summary ---
Demographics + + + | Address | [address] | | | [place] [address] | + + + | Home Phone | | + + + | Preferred Language | Unknown | + + + | Marital Status | | + + + | Druze Affiliation | 1076 | + + + [...] +------+ + | Care Mergers And Acquisitions Associate Name | Role | Phone | + +------+ + PCP | Unavailable | + +------+ + Encounter Details +--------+ + + + + | Date | Type | Department | Care Team | Description | +--------+ + + + + | 06/06/ | Hospital | [facility] | Jared Wood MD | | | 2010 | Encounter | [facility] | [address] | | | | | CENTER [address] | [place], [place] | | | | | [facility] | [address] | | | | | [place], [place] | | | | | | [address] | | | | | | [phone] | | | +--------+ + + + [...] No tobacco or alcohol. She resides in [place]. She states she is over here visiting [...] FILI GALDAMEZ : 58 | Signed MR[facility] [id number] [id number] | ADM 06/06/11 DS 06/06/11 DEP ER | Jared Wood MD | [facility] ES: B R pt [phone] | EMERGENCY CENTER THIS REPORT IS CONFID [...] hydrocodone. Follow up with her doctor in [place]. Heat t o her back alternating with ice. Stretching. Good back mechanics. Activity as tolerated. Re turn to the ER for increased pain, weakness, worsening. Condition on discharge is good. Jared Wood MD MARGO:NLA Job ID:[id number] Doc ID:[id number] cc: Electronically Signed 06/07/11 1307 Jared Wood MD DAWITJulienABEBEFILI Carin [place] : 58 | Signed MR# [id number] ACCT# [id number] | ADM 06/06/11 DS 06/06/11 DEP ER | Jared Wood MD | [facility] ES: B R pt [phone] | EMERGENCY CENTER THIS REPORT IS CONFID [...] [place] | | | | | | [address] | | | | | | | | +--------+---------+ + + + documented as of this encounter Visit Diagnoses Not on filedocumented in this encounter"
--- OUTSIDE RECORDS SUMMARY | ~2020-04-27 | XMS | Encounter Summary ---
Demographics + + + | Address | [address] | | | [place] [address] | + + + | Home Phone [...] Providers + +------+ + | Care Leather Sprayer Name | Role | Phone | + +------+ + | Marta Jenkins EDUCATOR SENIOR CLINICAL | PCP | | + +------+ + [...] [address] | | | | | [place], [place] | [place], [place] | | | | | [address] | [address] | | | | | [phone] | [phone] | | | | | | | [...]
--- OUTSIDE RECORDS SUMMARY | ~2020-04-27 | XMS | Encounter Summary ---
Demographics + + + | Address | [address] | | | [place] [address] | + + + | Home Phone [...] Team Providers + +------+ + | Care Handkerchief Folder Name | Role | Phone | [...] | [facility] | MEGAN Reddy [address] | | | | | [address] | [address] | | | | | Loop Physician's | [place], [place] | | | | | [place]rence, 3rd floor | [address] | | | | | [place], [place] | [phone] | | | | | [address] | | | | | | [phone] | | | +--------+ + + + [...]
--- OUTSIDE RECORDS SUMMARY | ~2020-04-27 | XMS | Encounter Summary ---
Demographics + + + | Address | [address] | | | [place] [address] | + + + | Home Phone [...] Providers + +------+ + | Care Line Therapist Name | Role | Phone | [...] of this encounter Progress Notes Interface, Senior Process Analyst In - 06/11/2006 3:03 AM PDTCLINIC DATE: [...] clinic today. It was done in a [place] in [facility] on December 08, 2001. There is [...] on an as-needed basis. Vince Krishna M.D. [employer] / [id number] / [id number] / [id number] / cc: Ninfa Guillen M.D. [address] [place] [address] Kalyan Wu M.D. [facility] Orthopedics and Rehabilitation Lloyd Garcia M.D. [facility] Orthopedics and RehabiliationElectronically signed by Interface, Senior Process Analyst In at 0 06/11/2006 3:03 AM PDTdocumented in this encounter Plan of Treatment Not on filedocumented as of this encounter Visit Diagnoses Not on filedocumented in this encounter"
--- OUTSIDE RECORDS SUMMARY | ~2020-04-27 | XMS | Encounter Summary ---
Demographics + + + | Address | [address] | | | [place] [address] | + + + | Home Phone [...] Team Providers + +------+ + | Care Sammying Machine Operator Name | Role | Phone [...] of this encounter Progress Notes Interface, Quality Control Microbiologist In - 06/11/2006 3:03 AM PDT [place] [facility] and [place] [address] [place], [place] [address] FAX Department of Orthopaedics, [facility] [employer] [facility] [id number] November 27, 2001 Kalyan Wu M.D. [facility] PV 430 RE: SHELBY GALDAMEZ MR #: [...] the low back several years ago in [place], [place] which she described as showing deteriorating vertebrae at "T11-T12." She has not had any physical therapy for back. She does work out at a gym under the direction of physical therapy in [place]. She would like to start some exercises [...] contact me. Sincerely yours, Vince Krishna M.D. [facility] / [id number] / [id number] / [id number] / [id number] cc: Lloyd Garcia M.D. Orthoped[facility] 430 docume nted in this encounter Plan of Treatment Not on filedocumented as of this encounter Visit Diagnoses Not on filedocumented in this encounter
--- OUTSIDE RECORDS SUMMARY | ~2020-04-27 | XMS | Encounter Summary ---
Demographics + + + | Address | [address] | | | [place] [address] | + + + | Home Phone [...] Providers + +------+ + | Care Continuous Towel Roller Name | Role | Phone | [...] as of this encounter Progress Notes Interface, Lock Master In - 02/27/2006 3:05 AM PDTClinic Date: [...] M.D. Lloyd Garcia M.D. RT / HS [id number] / [id number] / [id number] / [id number] Watt, Lock Master In - 02/27/2006 3:05 AM PDTClinic Date: [...] is any deep infection. Lloyd Garcia M.D. Photoengraving Etcher Apprentice Orthopedics [facility] Rehabilitation Jackelyn A [phone] cc: Ninfa Barrientos MD [address] [place] [id number] signed by Interface, Lock Master In at 6 3:05 AM PDTdocumented in this encounter Plan of Treatment Not on filedocumented as of this encounter Visit Diagnoses Not on filedocumented in this encounter"
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
--- OUTSIDE RECORDS SUMMARY | ~2020-04-27 | XMS | Encounter Summary ---
Demographics + + + | Address | [address] | | | [place] [address] | + + + | Home Phone [...] Team Providers + +------+ + | Care Bleach Maker Name | Role | Phone | + +------+ + PCP | Unavailable | + +------+ + Encounter Details +--------+ + + + + | Date | Type | Department | Care Team | Description | +--------+ + + + + | 03/19/ | Results | Registration [address] | Sophy, Faculty | | | 2007 | Only | [address] | [phone] | | | | | Rd Mailcode: RPB07 | | | | | | [employer], [place] | | | | | | [address] | | | | | | [phone] | | | +--------+ + + + [...]
--- OUTSIDE RECORDS SUMMARY | ~2020-04-27 | XMS | Encounter Summary ---
Demographics + + + | Address | [address] | | | [place] [address] | + + + | Home Phone [...] Providers + +------+ + | Care Bottom Sander Name | Role | Phone | [...] | | | | | | | [address] | | | | | | | [address] | | | | | | | Jamie 2SE/UHN85 | | | | | | | Rose | | | | | | | [place] | | | | | | | (MNP/OLD [facility]) | | | | | | | [place], | | | | | | | [place] [address] | +--------+--------+ + + + + Encounter Details +--------+ + + + + | Date | Type | Department | Care Team | Description | +--------+ + + + + | 09/06/ | Hospital | [facility] [address] | Tyrone Colby MD | | | 2007 - | Encounter | [address] [facility] [address] | [address] [facility] | | | | | 2SE/UHN85 | [facility] Jamie | | | 09/09/ | | [address] | [place], [place] | | | 2007 | | (MNP/OLD [facility]) | [address] | | | | | [place], [place] | [phone] | | | | | [address] | | | +--------+ + + + [...] #3. Radiation oncology team was consulted and [facility] administered a single radiation treatment [...] right hip. 0. Needs continued PT/OT at [facility] 1. You may remove dressing 3 days after your surgery and OK for shower thereafter as long a s the incision is not draining. Sponge bath until dressings off. No soaking in tub, pool, et c. If there is drainage after [address] new guaze on the incision and call the Orthopaedi c clinic [phone]. 2. Continue to take Aspirin 325mg twice a day for a total of 6 weeks. Stop if you have stom ach upset or blood in your stool. Let your surgeon know if you have had GI bleeding in the p ast after taking Aspirin or NSAID's. 3. DO NOT let anyone start you on Antibiotics if they suspect your wound is infected. Call medical care evaluation specialist [facility] Orthopaedist first. Call [phone] for daytime and weekdays, or [phone] for nights and weekends. If you have [...] Dr. Colby in 2 wks. Please call [phone] now to confirm appointment. Follow Up Tests: (Tests at [facility] must be entered into [facility]) none Condition On Discharge: Good Discharge Medications: [...] incision and call the Orthopaedi c clinic [phone]. 2. Continue to take Aspirin 325mg twice a day for a total of 6 weeks. Stop if you have stom ach upset or blood in your stool. Let your surgeon know if you have had GI bleeding in the p ast after taking Aspirin or NSAID's. 3. DO NOT let anyone start you on Antibiotics if they suspect your wound is infected. Call medical care evaluation specialist [facility] Orthopaedist first. Call [phone] for daytime and weekdays, or [phone] for nights and weekends. If you have [...] Dr. Colby in 2 wks. Please call [phone] now to confirm appointment. Follow Up Tests: (Tests at [facility] must be entered into [facility]) none Condition On Discharge: Good Discharge Medications: [...] Faculty - 8 12:00 AM Shelby Thompson [id number] [facility] REC NUMBER: [id number] NAME : Shelby Galdamez DATE : 1960 Admit Date: 09/06/2008 Discharge Date: 09/09/2008 PHYSICIAN'S REQUEST FOR HOME HEALTH SERVICES Relevant History: Location to receive services if other than home: Allergies: Height: Weight: Ordering Physician: [address] [facility], [place] [address] Physician to follow for ongoing home health orders: PCP Name: PCP Phone: Discharge Need(s): 1. Alf Facility Discharge Vendor: [facility] Discharge Suggested First Visit/Delivery Date: Discharge Service/Equipment: 2. Transportation Discharge Vendor: Medicaid - [place] Discharge Suggested First Visit/Delivery Date: Discharge Service/Equipment: stretcher 12:30pm Studio Grip: Tr Rosales - 09/08/2008 2:22 PM PSTRADIATION [...] as able . Tasha Harding OTR//L Pager [phone] Tyrone Haney - 2007 7:55 AM PST [...] and plan of care. TYRONE COLBY MD [facility] [address] 2se/uhn85 [place] [address] Taz Rand - 08/30 5:50 AM PST [...] DEPARTMENT OF | [address] | [place] [address] | | | PATHOLOGY | [address] | | | + + + + + | [facility] DEPARTMENT OF | [address] | [place] [address] | | | PATHOLOGY | [address] [...] | + + + + + | [facility] DEPARTMENT OF | [address] | [place] [address] | | | PATHOLOGY | [address] | | | + + + + + | [facility] DEPARTMENT OF | [address] | [place] [address] | | | PATHOLOGY | [address] [...] + | [facility] | [address] [facility] | [place] [address] | | | PATHOLOGY | [address] | | | + + + + + | [facility] | [address] [facility] | [place] [address] | | | PATHOLOGY | [address] [...] | + + + + + | [facility] DEPARTMENT OF | [address] [facility] | [place] [address] | | | PATHOLOGY | [address] | | | + + + + + | [facility] DEPARTMENT OF | [address] [facility] | [place] [address] | | | PATHOLOGY | [address] [...] | + + + + + | [facility] DEPARTMENT OF | [address] | [place] [address] | | | PATHOLOGY | [address] | | | + + + + + | [facility] DEPARTMENT OF | [address] | [place] [address] | | | PATHOLOGY | [address] [...] | | THERAPY | | | | ELECTRIC MOTOR CONTROLS ASSEMBLER | | | | + + + [...] [facility] RESPIRATORY | [address] | [place], [place] | | | THERAPY | [address] | [address] | | + + + + + | [facility] RESPIRATORY | [address] | [place], [place] | | | THERAPY | [address] | [address] | | + + + + + [...] Lynn, | | | | | | ELECTRIC MOTOR CONTROLS ASSEMBLER | | | | + + + [...] [facility] RESPIRATORY | [address] | [place], [place] | | | THERAPY | [address] | [address] | | + + + + + | [facility] RESPIRATORY | [address] | [place], [place] | | | THERAPY | [address] | [address] | | + + + + + [...] | + + + + + | [facility] DEPARTMENT OF | [address] [facility] | [place] [address] | | | PATHOLOGY | [address] | | | + + + + + | [facility] DEPARTMENT OF | [address] [facility] | [place] [address] | | | PATHOLOGY | [address] [...] + | [facility] | [address] [facility] | [place] [address] | | | PATHOLOGY | [address] | | | + + + + + | [facility] | [address] [facility] | [place] [address] | | | PATHOLOGY | [address] [...] HOSPITAL OF | [address] | [place] [address] | | | PATHOLOGY | [address] | | | + + + + + | [facility] | [address] | [place] [address] | | | PATHOLOGY | [address] [...] + | [facility] | [address] [facility] | [place] [address] | | | PATHOLOGY | [address] | | | + + + + + | [facility] | [address] [facility] | [place] [address] | | | PATHOLOGY | [address] [...] Recio, | | | | | | ELECTRIC MOTOR CONTROLS ASSEMBLER | | | | + + + [...] [facility] RESPIRATORY | [address] | [place], [place] | | | THERAPY | [facility] | [address] | | + + + + + | [facility] RESPIRATORY | [address] | [place], [place] | | | THERAPY | [facility] | [address] | | + + + + + [...] | THERAPY | | | | Hemal, ELECTRIC MOTOR CONTROLS ASSEMBLER | | | | + + + [...] [facility] RESPIRATORY | [address] | [place], [place] | | | THERAPY | [address] | [address] | | + + + + + | [facility] RESPIRATORY | [address] | [place], [place] | | | THERAPY | [address] [facility] | [address] | | + + + + + [...] Recio, | | | | | | ELECTRIC MOTOR CONTROLS ASSEMBLER | | | | + + + [...] + + | [facility] RES[facility]ATORY | [address] [facility] | [place], [place] | | | THERAPY | [facility] | [address] | | + + + + + | [facility] RES[facility]ATORY | [address] [facility] | [place], [place] | | | THERAPY | [facility] | [address] | | + + + + + [...] [facility] RES[facility]IRATORY | [address] | [place], [place] | | | THERAPY | [address] | [address] | | + + + + + | [facility] RESPIRATORY | [address] | [place], [place] | | | THERAPY | [address] [facility] | [address] | | + + + + + [...] Performed At | + + + | [id number] | | | [id number] TALLY | | | [place] [id number] Date: | | | 09/06/2008 Attending Surgeon: | | | Tyrone Colby M.D. Data Abstractor(s): | | | Maximiliano Chisholm M.D. | [...] | | decubitus position with a hip technician preventative medicine. The right hind quadrant and | | [...] Tyrone Alcantar | | | Sierra Colby. [facility] [id number] / [id number] / [id number] / | | | | | + + + + + | Procedure Note | + + | Tyrone Colby MD - 09/06/2008 12:00 AM [facility] [id number] | | [id number] CHAD Osei | | [id number] Date: 09/06/2008 Attending Surgeon: Tyrone | | Ortiz Colby M.D. Data Abstractor(s): Maximiliano Chisholm M.D. | | Linh Wiggins [...] decubitus position with a hip | | technician preventative medicine. Theright hind quadrant and lower extremity were [...] is | | warranted. Tyrone Colby M.D. [facility] / [id number] / [id number] / [id number] /D: | | 09/06/2008T: 09/06/2008 | |anteriorly [...] Colby M.D. | | | | | |[facility] / | |[id number] / [id number] / [id number] / | | | | | | [...] + +---------+ +---+--------+---+ | morphine 5 mg/mL STRAIGHTENER AND ALIGNER infusion | New Bag | 09/07/20 | [...] | | | | | 1955, Until [facility] 09/09/08 at 1941, | | | | [...]
--- OUTSIDE RECORDS SUMMARY | ~2020-04-27 | XMS | Encounter Summary ---
Demographics + + + | Address | [address] | | | [place] [address] | + + + | Home Phone [...] Team Providers + +------+ + | Care Churner Name | Role | Phone | + [...] of this encounter Progress Notes Interface, Electrical Tech/Project Manager In - 08/06/2006 1:09 AM PSTCLINIC DATE: [...] provided by Dr. Noland. Lloyd Garcia M.D. Arborist Climber, Orthopedics and Rehabilitation / [id number] / [id number] / [id number] / [id number] cc: Helio Noland M.D. [address] [place], [place] [address]Omuerdmijrvtgl signed by Interface, Electrical Tech/Project Manager In at 08/06/2006 1: 09 AM PSTdocumented in this encounter Plan of Treatment Not on filedocumented as of this encounter Visit Diagnoses Not on filedocumented in this encounter
--- OUTSIDE RECORDS SUMMARY | ~2020-04-27 | XMS | Encounter Summary ---
Demographics + + + | Address | [address] | | | [place] [address] [...] Providers + +------+ + | Care Video Presentation Operator Name | Role | Phone | [...] of this encounter Progress Notes Interface, Senior Escrow Officer In - 07/22/2006 3:18 AM PDTCLINIC DATE: [...] of the right knee. Lloyd Garcia M.D. math professor, Orthopedics and Rehabilitation. BIRGIT / SALEEM [id number] / [id number] / [id number] / [id number] cc: JILLIAN TODD MD [address] [address]Preayvgigfigwy signed by Interface, Senior Escrow Officer In at 07/22/2006 3:1 8 AM PDTdocumented in this encounter Plan of Treatment Not on filedocumented as of this encounter Visit Diagnoses Not on filedocumented in this encounter"
--- OUTSIDE RECORDS SUMMARY | ~2020-04-27 | XMS | Encounter Summary ---
Demographics + + + | Address | [address] | | | [place] [address] | + + + | Home Phone [...] Team Providers + +------+ + | Care Poultry Grader Name | Role | Phone | [...] of this encounter Progress Notes Interface, Jewel Sorter In - 04/01/2006 3:12 AM PDTCLINIC DATE: [...] a total hip replacement. Lloyd Garcia M.D. [employer], Orthopedics and Rehabilitation / [id number] / [id number] / [id number] / cc: Ninfa Guillen M.D. [address] [address]Ecatqrhamafykd signed by Interface, Jewel Sorter In at 04/01/2006 3:1 2 AM PDTdocumented in this encounter Plan of Treatment Not on filedocumented as of this encounter Visit Diagnoses Not on filedocumented in this encounter"
--- OUTSIDE RECORDS SUMMARY | ~2020-04-27 | XMS | Encounter Summary ---
Demographics + + + | Address | [address] | | | [place] [...] Team Providers + +------+ + | Care Cow Puncher Name | Role | Phone | + [...] | [facility] at [facility] | MEGAN Reddy [address] | | | | | [address] | [address] | | | | | Loop Physician's | [place], [place] | | | | | [address], 3rd floor | [address] | | | | | [place], [place] | [phone] | | | | | [address] | | | | | | [phone] | | | +--------+ + + + [...] + + + | [facility] | [address] | [place] [address] | | | CENTER - [place] | | | | + + + + + documented in this encounter Visit Diagnoses Not on filedocumented in this encounter"
--- OUTSIDE RECORDS SUMMARY | ~2020-04-27 | XMS | Encounter Summary ---
Demographics + + + | Address | [address] | | | [place] [address] | + + + | Home Phone [...] Providers + +------+ + | Care Marketing Account Executive Name | Role | Phone | + +------+ + | No Pcp Per Patient | PCP | Unavailable | + +------+ + Encounter Details +--------+ + + + + | Date | Type | Department | Care Team | Description | +--------+ + + + + | 12/15/ | Financial Director | Orthopaedics at | Kalyan Arias MD | JUAN DAVID (Total Hip | | 2008 | | [facility] [address] | [address] | Arthroplasty) | | | | [address] | [address] | (Primary Dx) | | | | Mailcode: PV430 | [place], [place] | | | | | [facility] | [address] | | | | | [place], [place] | [phone] | | | | | [address] | | | | | | [phone] | | | +--------+ + + + [...]
--- OUTSIDE RECORDS SUMMARY | ~2020-04-27 | XMS | Encounter Summary ---
Demographics + + + | Address | [address] | | | [place] [address] | + + + | Home Phone [...] Team Providers + +------+ + | Care English Language Learner Teacher Name | Role | Phone | + +------+ + | Marta Jenkins ROOF CEMENT AND PAINT MAKER HELPER | PCP | | + +------+ [...] | obesity | [address] | [facility] | | | | | ([facility]) | [facility] | for Health | | | | | Procedures | Rd | and Healing, | | | | | PHYSICAL | [place], [place] | [address], | | | | | THERAPY | [address] | 1st Floor | | | | | REFERRAL | Phone: | [place], [place] | | | | | | [phone] | [address] | | | | | | Fax: | Phone: | | | | | | [phone] | [phone] | | | | | | | Fax: | | | | | | | [phone] | +--------+--------+ + + + + Encounter Details +--------+ + + + + | Date | Type | Department | Care Team | Description | +--------+ + + + + | 11/19/ | Manager Sign | Digestive Health | Wanda López ACNP | Morbid obesity (HCC) | | 2019 | | Center at [facility] [address] | [address] | (Primary Dx) | | | | [facility] | Roxann Ayala [place], | | | | | for Health and | [place] [address] | | | | | Rajiv, [address] | [phone] | | | | | [place], [place] | | | | | | [address] | | | | | | | [...]
--- OUTSIDE RECORDS SUMMARY | ~2020-04-27 | XMS | Encounter Summary ---
Demographics + + + | Address | [address] | | | [place] [address] | + + + | Home Phone [...] Team Providers + +------+ + | Care Foreclosure Specialist Name | Role | Phone | [...] | | | | | osteoarthrit | [address] | [address] | | | | | is of left | Pankaj Bergman | Yasmany Gil | | | | | hip | Roxann Ayala | Center for | | | | | Procedures | [place], [place] | [facility] and | | | | | CONSULT TO | [address] | Healing, | | | | | BARIATRIC | Phone: | Building 2 | | | | | SURGERY | [phone] | [place], [place] | | | | | | Fax: | [address] | | | | | | [phone] | Phone: | | | | | | | | | | | | | | Fax: | | | | | | | [phone] | +--------+--------+ + + + + Reason [...] | | | | | | Rd [place], | | | | | | | [place] | | | | | | | [address] | | | | | | | Phone: | | | | | | | [phone] | | | | | | | Fax: | | | | | | | [phone] | +--------+--------+ + + + + Encounter Details +--------+---------+ + + + | Date | Type | Department | Care Team | Description | +--------+---------+ + + + | 10/02/ | Office | Orthopaedics | Royce Druand, | Primary | | 2019 | Visit | [facility] | [address] | osteoarthritis of | | | | for Health and | [address] | left hip (Primary | | | | Healing [address] | [facility] [place] | Dx); Left hip pain; | | | | [facility] | [address] | Smoking; Chronic | | | | Health and Healing, | [phone] | obstructive | | | | | | pulmonary disease, | | | | Floor [place], [place] | | unspecified COPD | | | | [address] | | type ([facility]); Class 3 | | | | [phone] | | severe obesity with | | [...] | ([facility]) | +--------+---------+ + + + Social [...] might be different fro m the original. [facility] DEPARTMENT OF ORTHOPAEDICS & REHABILITATION Adult [...] W-FE,OTHER MIN (CENTRUM ORAL), Take by mouth. [place]-3 Fatty Acids-Vitamin E (FISH OIL) 1,000 mg [...] The patient was offered a referral to [facility], for non-surgical and potentially [...]
--- OUTSIDE RECORDS SUMMARY | ~2020-04-27 | XMS | Encounter Summary ---
Demographics + + + | Address | [address] | | | [place] [address] | + + + | Home Phone [...] Team Providers + +------+ + | Care Skin Therapist Name | Role | Phone | [...] | | [address] | Roxann Ayala [place], | | | | | Mailcode: [id number] | [place] [address] | | | | | [facility] | | | | | | [place] | | | | | | [address] | | | | | | [phone] | | | +--------+ + + + [...]
--- OUTSIDE RECORDS SUMMARY | ~2020-04-27 | XMS | Encounter Summary ---
Demographics + + + | Address | [address] | | | [place] [address] | + + + | Home Phone [...] Team Providers + +------+ + | Care Planting Machine Crewman Name | Role | Phone | + +------+ + | Marta Jenkins CONTACT CENTER MANAGER | PCP | | + +------+ [...] [id number] | | | | | | [place], [place] | | | | | | [address] | | | | | | [phone] | | | +--------+ + + + [...]
--- OUTSIDE RECORDS SUMMARY | ~2020-04-27 | XMS | Encounter Summary ---
Demographics + + + | Address | [address] | | | [place] [address] | + + + | Home Phone [...] Team Providers + +------+ + | Care Mathematical Scientist Name | Role | Phone | + +------+ + | No Pcp Per Patient | PCP | Unavailable | + +------+ + Encounter Details +--------+ + + + + | Date | Type | Department | Care Team | Description | +--------+ + + + + | 10/13/ | Wireless Architect | Orthopaedics at | Tesfaye Saenz | Osteoarthritis of | | 2008 | | [facility] [address] | MEGAN Evangelista | Hip (Primary Dx) | | | | [address] | | | | | | Mailcode: PV430 | | | | | | [facility] | | | | | | [place], [place] | | | | | | [address] | | | | | | [phone] | | | +--------+ + + + [...] ADELIA | | | | | | Mlacom ESCOBARSTATUS FINAL | | | | | [...]
--- OUTSIDE RECORDS SUMMARY | ~2020-04-27 | XMS | Encounter Summary ---
Demographics + + + | Address | [address] | | | [place] [address] | + + + | Home Phone [...] Team Providers + +------+ + | Care Mink Farmer Name | Role | Phone | [...] [facility] | | | | | | [address] | | | | | | Loop Physician[facility] | | | | | | [address], 4th Floor | | | | | | [place], [place] | | | | | | [address] | | | | | | [phone] | | | +--------+ + + + [...]
--- OUTSIDE RECORDS SUMMARY | ~2020-04-27 | XMS | Encounter Summary ---
Demographics + + + | Address | [address] | | | [place] [address] | + + + | Home Phone [...] Providers + +------+ + | Care Automatic Oven Operator Name | Role | Phone | [...] as of this encounter Progress Notes Interface, Bar Assistant In - 08/20/2006 3:01 AM PSTCLINIC DATE: [...] views. Fox Chopra M.D. BETH / SALEEM [id number] / [id number] / [id number] / C: 02/18/2000 jerman Noland M.D. [place], [place] [address] [place] [address], [address] [place], [place] [id number] signed by Interface, Bar Assistant In at 08/20/2006 3:01 AM PSTInterface, Bar Assistant In - 08/20/2006 3:01 AM PSTCLINIC DATE: [...] from her physical therapist, Rustam Sykes, at [facility] in [place], [place], which indicates that she has been [...] in any additional way at phone number [phone]. PHYSICAL EXAMINATION: Essentially unchanged from previous exams. [...] necessary at this point. Lloyd Garcia M.D. Library Consultant, Orthopedics and Rehabilitation / [id number] / [id number] / [id number] / cc: Helio Noland MD [place], [place] [address] [place] [address] documented in this encounter Plan of Treatment Not on filedocumented as of this encounter Visit Diagnoses Not on filedocumented in this encounter"
--- OUTSIDE RECORDS SUMMARY | ~2020-04-27 | XMS | Encounter Summary ---
Demographics + + + | Address | [address] | | | [place] [address] | + + + | Home Phone [...] Providers + +------+ + | Care Oil Fire Specialist Name | Role | Phone | [...] | Head and Neck | MEGAN Reddy [address] [facility] | | | | | Surgery Services at | [facility] | | | | | [facility] [address] | [place], [place] | | | | | [address] | [address] | | | | | Physician's | [phone] | | | | | Pavilion, [facility] floor | | | | | | [place], [place] | | | | | | [address] | | | | | | [phone] | | | +--------+ + + + [...]
--- OUTSIDE RECORDS SUMMARY | ~2020-04-27 | XMS | Encounter Summary ---
Demographics + + + | Address | [address] | | | [place] [address] | + + + | Home Phone [...] Team Providers + +------+ + | Care Plating Foreman Name | Role | Phone | [...] + + | 01/20/ | Telephone | [facility] | Xiang Sepulveda, | Appointment | | 2020 | | [facility] | DO [address] | | | | | D[address]OLOGY [address] | [place], [place] | | | | | MARY CARRERA | [address] | | | | | [place], [place] | | | | | | [address] | | | | | | [phone] | | | +--------+ + + + [...] Miscellaneous Notes Telephone Encounter - Antonella Sprague, Payroll Assistant - 01/21/2020 2:26 PM PDTCalled and left [...] [place] | | | | | | [address] | | | | | | | | +--------+---------+ + + + documented as of this encounter Visit Diagnoses Not on filedocumented in this encounter"
--- OUTSIDE RECORDS SUMMARY | ~2020-04-27 | XMS | Encounter Summary ---
Demographics + + + | Address | [address] | | | [place] [address] | + + + | Home Phone [...] Team Providers + +------+ + | Care Autocad Designer Name | Role | Phone | [...] as of this encounter Progress Notes Interface, Optical Worker In - 04/28/2005 10:57 PM PDTClinic Date: [...] not need a refill. Lloyd Garcia M.D. Energy Administrator of Orthopedics and Rehabilitation / [id number] / [id number] / [id number] / [id number] cc: Leonel Floyd M.D. [address] [place], [place] [address]Nrtiinvxpliqxy signed by Interface, Optical Worker In at 04/28/2005 10:57 PM PDTdocumented in this encounter Plan of Treatment Not on filedocumented as of this encounter Visit Diagnoses Not on filedocumented in this encounter"
--- OUTSIDE RECORDS SUMMARY | ~2020-04-27 | XMS | Encounter Summary ---
Demographics + + + | Address | [address] | | | [place] [address] | + + + | Home Phone [...] Team Providers + +------+ + | Care Generation Technician Name | Role | Phone | [...] | | | | Mailcode: [id number] | [facility] [place] | | | | | Phys[facility] | [address] | | | | | [place], [place] | [phone] | | | | | [address] | | | | | | [phone] | | | +--------+ + + + [...]
--- OUTSIDE RECORDS SUMMARY | ~2020-04-27 | XMS | Encounter Summary ---
Demographics + + + | Address | [address] | | | [place] [address] | + + + | Home Phone | | + + + | Preferred Language | Unknown | + + + | Marital Status | | + + + | Advent Affiliation | 1076 | + + + | Race | Unknown | + + + | Ethnic Group | Unknown | + + + Author + + + | Author | [facility] | | | and [place] | + + + | Organization | [facility] | | [...] + +------+ + | Care Head Of Marketing Adometry Name | Role | Phone | + [...] + + | 09/29/ | Office | [facility] | Xiang Sepulveda, | Other chronic pain | | 2019 | Visit | [facility] | DO [address] | (Primary Dx); | | | | DOLOROLOGY [address] | [place], [place] | 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 It should de crease after therapy has begun. Last 4 PEG Scores: No flowsheet data found. Opioid Risk Tool (ORT): Total Score Pulse: 94 BP: 160/88 SpO2: 98 % (From Chronic Pain tab; printable questionnaires in Tristanian) Interpretation of Total Score: 0 to 3 [...] Surg andrés: Rustam Schmid MD; Location: [facility] MAIN OR Review of Systems Objective: [...] reviewed, listed controlled substances are consistent with [facility] prescriptions and patient reported use. Controlled [...] Patient states that he has seen a yard goods salesperson and Has started a diet and every [...] imited to physical therapy, massage therapy, acupuncture, hearing healthcare practitioner, along with jabari mmended psychological counseling, either privately, or in group sessions offered by private care individuals, community services, or jainism organizations. Appropriate referrals were made at patient [...] weeks. This document has been created using [employer] Voice Recognition software and [employer]. The entry has been reviewed for content and accuracy, but there may still exist "sound alike" clipper automatic word errors and/or unintended additions and deletions. [...] [place] | | | | | | [id number] | | | | | | | [...]
--- OUTSIDE RECORDS SUMMARY | ~2020-04-27 | XMS | Encounter Summary ---
Demographics + + + | Address | [address] | | | [place] [address] | + + + | Home Phone [...] Team Providers + +------+ + | Care Ship'S Captain Name | Role | Phone | [...] | | | Mailcode: [id number] | [facility] [place] | (injection) | | | | [facility] | [address] | | | | | [facility] [place] | [phone] | | | | | [address] | | | | | | [phone] | | | +--------+ + + + [...]
--- OUTSIDE RECORDS SUMMARY | ~2020-04-27 | XMS | Encounter Summary ---
Demographics + + + | Address | [address] | | | [place] [address] | + + + | Home Phone [...] Providers + +------+ + | Care Die Maker Name | Role | Phone | [...] + + + + | 11/13/ | Secondary History Teacher | Infectious | [place] Putnam | | | 2010 | | Diseases at [facility] | K, PA-C [address] | | | | | [address] | [facility] | | | | | Loop Physician's | [place], [place] | | | | | [place], 3rd floor | [address] | | | | | [place], [place] | [phone] | | | | | [address] | | | | | | [phone] | | | +--------+ + + + [...]
--- OUTSIDE RECORDS SUMMARY | ~2020-04-27 | XMS | Encounter Summary ---
Demographics + + + | Address | [address] | | | [place] [address] | + + + | Home Phone [...] Providers + +------+ + | Care Silo Tender Name | Role | Phone | [...] | | | | Mailcode: [id number] | [place], [place] | | | | | [facility] | [address] | | | | | [place], [place] | [phone] | | | | | [address] | | | | | | [phone] | | | +--------+ + + + [...]
--- OUTSIDE RECORDS SUMMARY | ~2020-04-27 | XMS | Encounter Summary ---
Demographics + + + | Address | [address] | | | [place] [address] | + + + | Home Phone [...] Team Providers + +------+ + | Care Subway Train Driver Name | Role | Phone | [...] | | | | Mailcode: [id number] | [facility] [place] | | | | | [facility] | [address] | | | | | [place], [place] | [phone] | | | | | [address] | | | | | | [phone] | | | +--------+ + + + [...]
--- OUTSIDE RECORDS SUMMARY | ~2020-04-27 | XMS | Encounter Summary ---
Demographics + + + | Address | [address] | | | [place] [address] | + + + | Home Phone [...] + | Care Heat And Frost Insulator Helper Name | Role | Phone | [...]
--- OUTSIDE RECORDS SUMMARY | ~2020-04-27 | XMS | Encounter Summary ---
Demographics + + + | Address | [address] | | | [place] [address] | + + + | Home Phone [...] Providers + +------+ + | Care Sales Porter Name | Role | Phone | + +------+ + | Marta Jenkins HEATER WORKER | PCP | | + +------+ [...] | Jamie Mailcode: [address] [place], | | | | | [place], [place] | [place] [address] | | | | | [address] | | | | | | [phone] | | | +--------+ + + + [...]
--- OUTSIDE RECORDS SUMMARY | ~2020-04-27 | XMS | Encounter Summary ---
Demographics + + + | Address | [address] | | | [place] [address] | + + + | Home Phone | | + + + | Preferred Language | Unknown | + + + | Marital Status | | + + + | Mormon Affiliation | 1076 | + + + | Race | Unknown | + + + | Ethnic Group | Unknown | + + + Author + + + | Author | [facility] | | | and [place] | + + + | Organization | [facility] | | | and [...] Providers + +------+ + | Care Shake Sawyer Name | Role | Phone | [...] | 2019 | | WOJCIECH GAITAN | Retail Coverage Merchandiser | blood work done) | | | | [address] [place], [place] | | | | | | [address] | | | | | | [phone] | | | +--------+ + + + [...] Miscellaneous Notes Telephone Encounter - Kina Hendrix Retail Coverage Merchandiser - 07/23/2019 4:48 PM PDTCalled & spoke to patient to let her know per Dr. Medrano that the blood work she got done was not the correct ones that Dr. Medrano needed. I let her know she needed to go to [facility] lab to get her blood [...] [place] | | | | | | [address] | | | | | | | | +--------+---------+ + + + documented as of this encounter Visit Diagnoses Not on filedocumented in this encounter
--- OUTSIDE RECORDS SUMMARY | ~2020-04-27 | XMS | Encounter Summary ---
Demographics + + + | Address | [address] | | | [place] [address] | + + + | Home Phone | | + + + | Preferred Language | Unknown | + + + | Marital Status | | + + + | Yarsanism Affiliation | 1076 | + + + [...] Providers + +------+ + | Care Computer Systems Security Analyst Name | Role | Phone | [...] + + | 04/25/ | Office | [facility] | Ladarius Martínez PA | MAMADOU on CPAP (Primary | | 2016 | Visit | SLEEP DISORDER 401 | [address] | Dx) | | | | [address] [place] | [place] | | | | | [place] [address] | [address] | | | | | [phone] | | | +--------+---------+ + + + [...] mask obtained from: [facility] [place] Pressure: 9-16 cm Median: 11.6 cm 95%: [...] Exam Assessment: Problem #1: OBSTRUCTIVE SLEEP APNEA ([id number]) This is controlled with CPAP, but she [...] months, sooner prn. Fifteen minutes were spent soli-[id number], w ith the majority of time spent [...] [place] | | | | | | [id number] | | | | | | | | +--------+---------+ + + + documented as of this encounter Visit Diagnoses + + | Diagnosis | + + | MAMADOU on CPAP - Primary Obstructive sleep apnea (adult) (pediatric) | + + documented in this encounter"
--- OUTSIDE RECORDS SUMMARY | ~2020-04-27 | XMS | Encounter Summary ---
Demographics + + + | Address | [address] | | | [place] [address] | + + + | Home Phone [...] Providers + +------+ + | Care Data Analytics Specialist Name | Role | Phone [...] | Procedures | Roxann Ayala | [place], | | | | | CONSULT TO | [place], [place] | [place] | | | | | ORTHOPEDICS | | | | | | | AND | Phone: | Phone: | | | | | REHABILITATI | [phone] | [phone] | | | | | ON | Fax: | Fax: | | | | | | [phone] | [phone] | +--------+--------+ + + + + Diagnostic [...] | | y | [address] | | | | | Procedures | Roxann Ayala | Research | | | | | MRI SPINE | [place], [place] | Center | | | | | LUMBAR WO | | [place], [place] | | | | | CONT | Phone: | [address] | | | | | | [phone] | Phone: | | | | | | Fax: | [phone] | | | | | | [phone] | Fax: | | | | | | | [phone] | +--------+--------+ + + + + Reason [...] | | | Orthopedics | | | [address] | | | | | | | [address] | | | | | | | Jamie [place], | | | | | | | [place] | | | | | | | [address] | | | | | | | Phone: | | | | | | | [phone] | | | | | | | Fax: | | | | | | | [phone] | +--------+--------+ + + + + Encounter [...] | | | | Mailcode: [id number] | [place], [place] | | | | | [facility] | [address] | | | | | [place], [place] | [phone] | | | | | [address] | | | | | | [phone] | | | +--------+---------+ + + + [...] + documented in this encounter Progress Notes Tyrnoe Colby MD - 07/06/2010 9:59 AM CHAROI performed a history and physical examination of the patient and discussed her management with the resident. I reviewed the resident s note and agree with the documented findings and plan of care. TYRONE COLBY MD [facility] [address] [place] [address] Mailcode: Pv430 Physicians [facility] [address] Taz Grider M D - 07/06/2010 9:32 [...] of | | | | | | P3bjirejnu/superior | | | | | | corner, [...]
--- OUTSIDE RECORDS SUMMARY | ~2020-04-27 | XMS | Encounter Summary ---
Demographics + + + | Address | [address] | | | [place] [address] | + + + | Home Phone [...] Team Providers + +------+ + | Care Cone Classifier Tender Name | Role | Phone | [...] | Diseases at [facility] | MEGAN Reddy [address] | | | | | [address] | [address] | | | | | Loop Physician's | [place], [place] | | | | | [address], 3rd floor | [address] | | | | | [place], [place] | [phone] | | | | | [address] | | | | | | [phone] | | | +--------+ + + + [...]
--- OUTSIDE RECORDS SUMMARY | ~2020-04-27 | XMS | Encounter Summary ---
Demographics + + + | Address | [address] | | | [place] [address] | + + + | Home Phone [...] Team Providers + +------+ + | Care Channeler Runner Name | Role | Phone | [...] | | | [address] | [address] [place], [place] | | | | | Mailcode: PV430 | [address] | | | | | [facility] | | | | | | [place], [place] | | | | | | [address] | | | | | | [phone] | | | +--------+ + + + [...]
--- OUTSIDE RECORDS SUMMARY | ~2020-04-27 | XMS | Encounter Summary ---
Demographics + + + | Address | [address] | | | [place] [address] | + + + | Home Phone [...] Providers + +------+ + | Care Mailroom Personnel Name | Role | Phone | + [...] | | [address] | Roxann Ayala [place], | | | | | Mailcode: PV430 | [place] [address] | | | | | [facility] | | | | | | [place] | | | | | | [address] | | | | | | [phone] | | | +--------+ + + + [...]
--- OUTSIDE RECORDS SUMMARY | ~2020-04-27 | XMS | Encounter Summary ---
Demographics + + + | Address | [address] | | | [place] [address] | + + + | Home Phone [...] Providers + +------+ + | Care Director Targeted Marketing Name | Role | Phone | [...] of this encounter Progress Notes Interface, Wire Turning Machine Operator In - 05/17/2006 3:10 AM PDTCLINIC DATE: [...] arthroplasty at that point. Lloyd Garcia M.D. Recovery Assistant, Orthopedics and Rehabilitation / [id number] / [id number] / [id number] / [id number] cc: Ninfa Guillen M.D. [address] [place] [id number] signed by Interface, Wire Turning Machine Operator In at 05/17/2006 3:1 0 AM PDTInterface, Wire Turning Machine Operator In - 05/17/2006 3:10 AM PDTCLINIC DATE: [...] MD Lloyd Causey M.D. SAMANTHA / SALEEM [id number] / [id number] / [id number] / Tdocumented in this encounter Plan of Treatment Not on filedocumented as of this encounter Visit Diagnoses Not on filedocumented in this encounter"
--- OUTSIDE RECORDS SUMMARY | ~2020-04-27 | XMS | Encounter Summary ---
Demographics + + + | Address | [address] | | | [place] [address] | + + + | Home Phone [...] Providers + +------+ + | Care Metal Cutter Name | Role | Phone | + +------+ + | Travis Mcginnis MD | PCP | | + +------+ + Encounter Details +--------+ + + + + | Date | Type | Department | Care Team | Description | +--------+ + + + + | 10/14/ | Results | LAB REFERRED TESTS | Other, Faculty | | | 2010 | Only | [address] [facility] | [phone] | | | | | [address] | | | | | | [place] | | | | | | [address] | | | +--------+ + + + [...] + + | [facility] | [address] | [place], [place] | | | CARDIOLOGY | [address] | [address] | | + + + + + documented in this encounter Visit Diagnoses Not on filedocumented in this encounter"
--- OUTSIDE RECORDS SUMMARY | ~2020-04-27 | XMS | Encounter Summary ---
Demographics + + + | Address | [address] | | | [place] [address] | + + + | Home Phone [...] + +------+ + | Care Mental Health Consultant Name | Role | Phone | [...] Pavilion | | | | | | [place], [place] | | | | | | [address] | | | | | | [phone] | | | +--------+ + + + [...] near | | | | | | [id number] | | | | | | appearance [...]
--- OUTSIDE RECORDS SUMMARY | ~2020-04-27 | XMS | Encounter Summary ---
Demographics + + + | Address | [address] | | | [place] [address] | + + + | Home Phone [...] Team Providers + +------+ + | Care Campus Executive Director Name | Role | Phone | [...] | | | | | (sacroiliac) | [facility], | | | | | joint | Rd | 10th Floor | | | | | inflammation | [place], [place] | [place], [place] | | | | | ([facility]) | [address] | [address] | | | | | Procedures | | Phone: | | | | | CT INJ | | [phone] | | | | | SACROILIAC | | Fax: | | | | | JOINT | | [phone] | | | | | W/NEEDLE | | | | | | | PLCMT | | | +--------+--------+ + + + + Encounter Details +--------+ + + + + | Date | Type | Department | Care Team | Description | +--------+ + + + + | 03/22/ | Hospital | Diagnostic Imaging | | | | 2009 | Encounter | Services at [facility] | | | | | | [address] | | | | | | Roxann [place]YMOUR | | | | | | [address] | | | | | | [place], [place] | | | | | | [address] | | | | | | [phone] | | | +--------+ + + + [...] | + + + +---------+--------+ + | Lott-3 Fatty | Take by mouth. | | [...] None. | | | | | | Dip Filler: Dr. Moss, | | | | | | radiology transcriptionist. | | | | | | Thread Grinder: | | | | | | Sue, [...] the | | | | | | child support officer. Aging Department Supervisor | | | | | | imaging [...]
--- OUTSIDE RECORDS SUMMARY | ~2020-04-27 | XMS | Encounter Summary ---
Demographics + + + | Address | [address] | | | [place] [address] | + + + | Home Phone | | + + + | Preferred Language | Unknown | + + + | Marital Status | | + + + | Sabianism Affiliation | [id number] | + + + | Race | Unknown | + + + | Ethnic Group | Unknown | + + + Author + + + | Author | [facility] | | | and [place] | + + + | Organization | [facility] | | [...] Providers + +------+ + | Care Senior Account Manager Name | Role | Phone [...] + | 01/31/ | Office | [facility] | Ladarius Martínez PA | MAMADOU on CPAP (Primary | | 2015 | Visit | SLEEP DISORDER [address] | [address] | Dx) | | | | [address] [place] | [place], [place] | | | | | [place] [address] | [address] | | | | | [phone] | | | +--------+---------+ + + + [...] S9 with nasal mask obtained from: In [facility] in [place] Pressure: 9-16 cm Median: 11.5 cm 95%: [...] been interested in getting her equipment from [facility] in [place] instead of In [facility]. Review of Systems Objective: Physical Exam Assessment: [...] year, sooner prn. Fifteen minutes were spent [id number]-[id number], wit h the majority of time spent [...] [place] | | | | | | [id number] | | | | | | | | +--------+---------+ + + + documented as of this encounter Visit Diagnoses + + | Diagnosis | + + | MAMADOU on CPAP - Primary Obstructive sleep apnea (adult) (pediatric) | + + documented in this encounter"
--- OUTSIDE RECORDS SUMMARY | ~2020-04-27 | XMS | Encounter Summary ---
Demographics + + + | Address | [address] | | | [place] [address] | + + + | Home Phone [...] Providers + +------+ + | Care Biological Photographer Name | Role | Phone | + [...] | | | Mailcode: PV430 | [place], [place] | | | | | [facility] | [address] | | | | | [place], [place] | [phone] | | | | | [address] | | | | | | [phone] | | | +--------+ + + + [...]
--- OUTSIDE RECORDS SUMMARY | ~2020-04-27 | XMS | Encounter Summary ---
Demographics + + + | Address | [address] | | | [place] [address] | + + + | Home Phone [...] Team Providers + +------+ + | Care Paint Spray Inspector Name | Role | Phone | [...] + + | 08/11/ | Telephone | [facility] | Augie Valdivia MD | Appointment | | 2011 | | GASTROENTEROLOGY | [address] [place] | (schedule procedure) | | | | [address] [place] | [address] [place] | | | | | [address] [place] | [address] | | | | | [address] | | | | | | [phone] | | | +--------+ + + + [...] [facility] Lupe Sinha - 08/11/2012 9:26 AM PSTPatient is calling to schedule another procedure after two failed attempts. Patient's information is up to date in SHERPA assistant.E lectronically signed by Lupe Sinha at 08/11/2012 [...] [place] | | | | | | [address] | | | | | | | | +--------+---------+ + + + documented as of this encounter Visit Diagnoses Not on filedocumented in this encounter"
--- OUTSIDE RECORDS SUMMARY | ~2020-04-27 | XMS | Encounter Summary ---
Demographics + + + | Address | [address] | | | [place] [address] | + + + | Home Phone [...] Team Providers + +------+ + | Care Costing Manager Name | Role | Phone | [...] of this encounter Progress Notes Interface, Director State Pharmacy In - 04/28/2005 7:30 PM PDTClinic Date: [...] Mariella Camacho P.A.-C. Lloyd Garcia M.D. / [id number] / [id number] / [id number] / [id number] Tdocumented in this encounter Plan of Treatment Not on filedocumented as of this encounter Visit Diagnoses Not on filedocumented in this encounter"
--- OUTSIDE RECORDS SUMMARY | ~2020-04-27 | XMS | Encounter Summary ---
Demographics + + + | Address | [address] | | | [place] [address] | + + + | Home Phone [...] Providers + +------+ + | Care Regional Property Manager Name | Role | Phone | [...] of this encounter Progress Notes Interface, Electrical Maintenance Supervisor In - 04/28/2005 10:57 PM PDTClinic [...] longer any fluid pocket. Lloyd Garcia M.D. Vp Research, Orthopedics and Rehabilitation / [id number] / [id number] / [id number] / [id number] cc: Everett Ibrahim MD [address] [place], [place] [address]Gifovavmnbhdyl signed by Interface, Electrical Maintenance Supervisor In at 04/28/2005 10:57 PM PDTdocumented in this encounter Plan of Treatment Not on filedocumented as of this encounter Visit Diagnoses Not on filedocumented in this encounter"
--- OUTSIDE RECORDS SUMMARY | ~2020-04-27 | XMS | Encounter Summary ---
Demographics + + + | Address | [address] | | | [place] [address] | + + + | Home Phone [...] Providers + +------+ + | Care Equipment Manager Name | Role | Phone | [...] of this encounter Progress Notes Interface, Assistant Public Defender In - 09/08/2006 1:11 AM PSTCLINIC DATE: [...] evaluation. Lloyd Garcia MD / [id number] / [id number] / [id number] / cc: Matthew Garcia MD [address] [place], [place] [address]Uyimdhahqcdvtb signed by Interface, Assistant Public Defender In at 09/08/2006 1:11 AM PSTdocumented in this encounter Plan of Treatment Not on filedocumented as of this encounter Visit Diagnoses Not on filedocumented in this encounter"
--- OUTSIDE RECORDS SUMMARY | ~2020-04-27 | XMS | Encounter Summary ---
Demographics + + + | Address | [address] | | | [place] [address] | + + + | Home Phone [...] Providers + +------+ + | Care Manager Pacu Name | Role | Phone | + +------+ + | Travis Mcginnis MD | PCP | | + +------+ + Encounter Details +--------+ + + + + | Date | Type | Department | Care Team | Description | +--------+ + + + + | 10/14/ | Results | LAB REFERRED TESTS | Other, Faculty | | | 2010 | Only | [facility] | [phone] | | | | | [address] | | | | | | [place] | | | | | | [address] | | | +--------+ + + + [...] + + | [facility] | [address] | [place], [place] | | | CARDIOLOGY | [address] | [address] | | + + + + + documented in this encounter Visit Diagnoses Not on filedocumented in this encounter"
--- OUTSIDE RECORDS SUMMARY | ~2020-04-27 | XMS | Encounter Summary ---
Demographics + + + | Address | [address] | | | [place] [address] | + + + | Home Phone [...] Providers + +------+ + | Care Bicycle Courier Name | Role | Phone | + [...] [facility] | | | | | | [address] | | | | | | [address] [facility] | | | | | | [place], [address] | | | | | | [place], [place] | | | | | | [address] | | | | | | [phone] | | | +--------+ + + + [...]
--- OUTSIDE RECORDS SUMMARY | ~2020-04-27 | XMS | Encounter Summary ---
Demographics + + + | Address | [address] | | | [place] [address] | + + + | Home Phone [...] + +------+ + | Care Director Of Software Engineering Name | Role | Phone | [...] [facility] | | | | | | [address] | | | | | | [address] [facility] | | | | | | [place], [address] [place] [address] | | | | | | [place], [place] | | | | | | [address] | | | | | | [phone] | | | +--------+ + + + [...] | + + + +---------+--------+ + | [place]-3 Fatty | Take by mouth. | | [...]
--- OUTSIDE RECORDS SUMMARY | ~2020-04-27 | XMS | Encounter Summary ---
Demographics + + + | Address | [address] | | | [place] [address] | + + + | Home Phone [...] Team Providers + +------+ + | Care Transfer And Line Up Worker Name | Role | Phone [...] + + + + | 11/13/ | Abalone Processor | Infectious | Carolina Putnam | | | 2010 | | Diseases at [facility] | K, PA-C [address] | | | | | [address] | [facility] | | | | | Loop Physician's | [place], [place] | | | | | [place], [address]rd floor | [address] | | | | | [place], [place] | [phone] | | | | | [address] | | | | | | [phone] | | | +--------+ + + + [...]
--- OUTSIDE RECORDS SUMMARY | ~2020-04-27 | XMS | Encounter Summary ---
Demographics + + + | Address | [address] | | | [place] [address] | + + + | Home Phone [...] Providers + +------+ + | Care Design Sales Consultant Name | Role | Phone [...] | | [address] | [address] [place], | | | | | Mailcode: PV430 | [place] [address] | | | | | [facility] | | | | | | [place] | | | | | | [address] | | | | | | [phone] | | | +--------+ + + + [...]
--- OUTSIDE RECORDS SUMMARY | ~2020-04-27 | XMS | Encounter Summary ---
Demographics + + + | Address | [address] | | | [place] [address] | + + + | Home Phone [...] Providers + +------+ + | Care Gas Maker Name | Role | Phone | [...] as of this encounter Progress Notes Interface, Parts Processor In - 04/28/2005 7:30 PM PDTClinic Date: [...] followup is scheduled today. Lloyd Garcia M.D. Land Development Project Manager, Orthopedics and Rehabilitation / [id number] / [id number] / [id number] / [id number] cc: Ninfa Guillen M.D. [address] [place] [address]Tejpwjbiqvhteh signed by Interface, Parts Processor In at 04/28/2005 7:3 0 PM PDTdocumented in this encounter Plan of Treatment Not on filedocumented as of this encounter Visit Diagnoses Not on filedocumented in this encounter"
--- OUTSIDE RECORDS SUMMARY | ~2020-04-27 | XMS | Encounter Summary ---
Demographics + + + | Address | [address] | | | [place] [address] | + + + | Home Phone [...] Team Providers + +------+ + | Care Au Pair Name | Role | Phone | + [...] as of this encounter Discharge Summaries Interface, Energy Analyst In 02/27/2006 3:05 AM PDTAdmission Date: 09/13/2003 [...] readmitted. DISPOSITION: She was discharged to a [facility] facility. MEDICATIONS: 1. Docusate #80. 2. Oxycodone #80. 3. Indomethacin 25 mg, p.o. t.i.d. for six weeks. FOLLOWUP: She will see Dr. Garcia in two weeks. She is to continue wearing her abduction brace. If she has any changes in her wound she is to notify our clinic as soon as possible. Benson Boone M.D. Lloyd Garcia M.D. RT:[id number] signed by Interface, Energy Analyst In at 02/27/2006 3:05 AM [facility] umented in this encounter Plan of Treatment Not on filedocumented as of this encounter Visit Diagnoses Not on filedocumented in this encounter"
--- OUTSIDE RECORDS SUMMARY | ~2020-04-27 | XMS | Encounter Summary ---
Demographics + + + | Address | [address] | | | [place] [address] | + + + | Home Phone [...] Providers + +------+ + | Care Gun Perforator Name | Role | Phone | + +------+ + | Marta Jenkins WATER TAXI CAPTAIN | PCP | | + +------+ + [...] | Jamie Mailcode: [address] [place], | | | | | [place], [place] | [place] [address] | | | | | [address] | | | | | | [phone] | | | +--------+ + + + [...]
--- OUTSIDE RECORDS SUMMARY | ~2020-04-27 | XMS | Encounter Summary ---
Demographics + + + | Address | [address] | | | [place] [address] | + + + | Home Phone [...] Team Providers + +------+ + | Care Otolaryngology Nurse Name | Role | Phone | [...] | | | | [place] | [phone] | | | | | [address] | | | | | | [phone] | | | +--------+ + + + [...] [place] | | | | | | [address] | | | | | | | [...]
--- OUTSIDE RECORDS SUMMARY | ~2020-04-27 | XMS | Encounter Summary ---
Demographics + + + | Address | [address] | | | [place] [address] | + + + | Home Phone [...] Providers + +------+ + | Care Mold Machine Operator Name | Role | Phone [...] | | | | Mailcode: PV430 | [place], [place] | | | | | [facility] | [address] | | | | | [place], [place] | [phone] | | | | | [address] | | | | | | [phone] | | | +--------+ + + + [...]
--- OUTSIDE RECORDS SUMMARY | ~2020-04-27 | XMS | Encounter Summary ---
Demographics + + + | Address | [address] | | | [...] Team Providers + +------+ + | Care Central Office Maintainer Name | Role | Phone | + +------+ + PCP | Unavailable | + +------+ + Encounter Details +--------+ + + + + | Date | Type | Department | Care Team | Description | +--------+ + + + + | 11/22/ | Results | Orthopaedics at | Peng Muro | | | 2003 | Only | [facility] [address] MD,PhD [address] | | | | | [address] | [address] | | | | | Mailcode: PV430 | [place], [place] | | | | | [facility] | [address] | | | | | [place], [place] | [phone] | | | | | [address] | | | | | | [phone] | | | +--------+ + + + [...]
--- OUTSIDE RECORDS SUMMARY | ~2020-04-27 | XMS | Encounter Summary ---
Demographics + + + | Address | [address] | | | [place] [address] | + + + | Home Phone [...] Team Providers + +------+ + | Care Typesetting Machine Tender Name | Role | Phone [...] as of this encounter Progress Notes Interface, Air Drier Machine Operator In - 06/19/2006 1:01 AM PDT [place] [facility] [place] [address], [place] [address] FAX Department of Orthopaedics, [facility] [employer] [id number] October 15, 2001 Lloyd Garcia M.D. Department of Orthopedics and Rehabilitation/[facility] [id number] RE: SHELBY GALDAMEZ MR #: [id number] DOS: 10/15/[address] Desai: Thank you [...] Sincerely, Kalyan Wu M.D. TE / HS [id number] / [id number] / [id number] / [id number] cc: Chan Krishna M.D. Department of Orthopedics and Rehabilitation/[facility] OP-31 Helio Noland M.D. [address] [place], [place] [address]Mihkajyeenzbhl signed by Interface, Air Drier Machine Operator In at 06/19/2006 1: 01 AM PDTdocumented in this encounter Plan of Treatment Not on filedocumented as of this encounter Visit Diagnoses Not on filedocumented in this encounter"
--- OUTSIDE RECORDS SUMMARY | ~2020-04-27 | XMS | Encounter Summary ---
Demographics + + + | Address | [address] | | | [place] [address] | + + + | Home Phone [...] Team Providers + +------+ + | Care Garage Attendant Name | Role | Phone | [...] | 10/06/ | Telephone | [facility] | Augie Valdivia MD | Appointment | | 2012 | | GASTROENTEROLOGY | [address] | | | | | [address] | [address] [place], [place] | | | | | [address] [place], [place] | [address] | | | | | [address] | | | | | | [phone] | | | +--------+ + + + [...] [place] | | | | | | [address] | | | | | | | | +--------+---------+ + + + documented as of this encounter Visit Diagnoses Not on filedocumented in this encounter"
--- OUTSIDE RECORDS SUMMARY | ~2020-04-27 | XMS | Encounter Summary ---
Demographics + + + | Address | [address] | | | [place] [address] | + + + | Home Phone [...] Providers + +------+ + | Care Correctional Medicine Physician Name | Role | Phone | [...] as of this encounter Progress Notes Interface, Loan Servicing Specialist In - 04/28/2005 5:10 PM PDTClinic [...] has been at her friend's house in [facility] and has been receiving IV [...] Benson Boone M.D. Lloyd Garcia M.D. / [id number] / [id number] / [id number] / 58486 Tdocumented in this encounter Plan of Treatment Not on filedocumented as of this encounter Visit Diagnoses Not on filedocumented in this encounter"
--- OUTSIDE RECORDS SUMMARY | ~2020-04-27 | XMS | Encounter Summary ---
Demographics + + + | Address | [address] | | | [place] [address] | + + + | Home Phone [...] Team Providers + +------+ + | Care Safety Lead Name | Role | Phone | + +------+ + | Marta Jenkins CERTIFIED PHARMACIST ASSISTANT | PCP | | + +------+ [...] | Jamie Mailcode: [address] [place], | | | | | [place], [place] | [place] [address] | | | | | [address] | | | | | | [phone] | | | +--------+ + + + [...]
--- OUTSIDE RECORDS SUMMARY | ~2020-04-27 | XMS | Encounter Summary ---
Demographics + + + | Address | [address] | | | [place] [address] | + + + | Home Phone [...] Team Providers + +------+ + | Care Hoop Punch And Coiler Operator Helper Name | Role | Phone | [...] [facility] | | | | | | [address] | | | | | | [address] [facility] | | | | | | [place], [facility] | | | | | | [place], [place] | | | | | | [address] | | | | | | [phone] | | | +--------+ + + + [...] + + + +---------+ + + | [place]-3 Fatty | Take by mouth. | | [...]
--- OUTSIDE RECORDS SUMMARY | ~2020-04-27 | XMS | Encounter Summary ---
Demographics + + + | Address | [address] | | | [place] [address] | + + + | Home Phone [...] Team Providers + +------+ + | Care Telesales Professional Name | Role | Phone | + +------+ + PCP | Unavailable | + +------+ + Encounter Details +--------+ + + + + | Date | Type | Department | Care Team | Description | +--------+ + + + + | 03/19/ | Results | Registration [address] | Sophy, Faculty | | | 2007 | Only | [address] | [phone] | | | | | [address] Mailcode: RPB07 | | | | | | [place], [place] | | | | | | [address] | | | | | | [phone] | | | +--------+ + + + [...]
--- OUTSIDE RECORDS SUMMARY | ~2020-04-27 | XMS | Encounter Summary ---
Demographics + + + | Address | [address] | | | [place] [address] | + + + | Home Phone [...] Team Providers + +------+ + | Care Mill Washer Name | Role | Phone | [...] Pavilion | | | | | | [place], [place] | | | | | | [address] | | | | | | [phone] | | | +--------+ + + + [...] Performing | Address | City[facility] | Phone Number | | Organization [...]
--- OUTSIDE RECORDS SUMMARY | ~2020-04-27 | XMS | Encounter Summary ---
Demographics + + + | Address | [address] | | | [place] [address] | + + + | Home Phone [...] Providers + +------+ + | Care Barrel Tester And Drainer Name | Role | Phone | + [...] | | | | | or | [address] | Pavilion | | | | | localized, | | [place], [place] | | | | | pelvic | | [address] | | | | | region and | | Phone: | | | | | thigh | | [phone] | | | | | Intervertebr | | Fax: | | | | | al lumbar | | [phone] | | | | | disc | [...] | [facility] [address] | [address] [facility] | Hip (Primary Dx) | | | | [address] | [address] [place], | | | | | Mailcode: PV430 | [place] [address] | | | | | [facility] | | | | | | [place], [place] | | | | | | [address] | | | | | | [phone] | | | +--------+---------+ + + + [...]
--- OUTSIDE RECORDS SUMMARY | ~2020-04-27 | XMS | Encounter Summary ---
Demographics + + + | Address | [address] | | | [place] [address] | + + + | Home Phone [...] Team Providers + +------+ + | Care 3D Designer Name | Role | Phone | [...] of this encounter Progress Notes Interface, Proof Press Operator In - 04/28/2005 7:30 PM PDTClinic [...] Mariella Camacho P.A.-C. Lloyd Garcia M.D. / [id number] / [id number] / [id number] / [id number] Tdocumented in this encounter Plan of Treatment Not on filedocumented as of this encounter Visit Diagnoses Not on filedocumented in this encounter"
--- OUTSIDE RECORDS SUMMARY | ~2020-04-27 | XMS | Encounter Summary ---
Demographics + + + | Address | [address] | | | [place] [address] | + + + | Home Phone [...] Providers + +------+ + | Care Iron Launder Operator Name | Role | Phone | + +------+ + | Travis Mcginnis MD | PCP | | + +------+ + Encounter Details +--------+ + + + + | Date | Type | Department | Care Team | Description | +--------+ + + + + | 08/03/ | Hospital | Diagnostic Imaging | | | | 2009 | Encounter | Services at [facility] | | | | | | [address] | | | | | | [address] [place] | | | | | | [facility] | | | | | | [place], [place] | | | | | | [address] | | | | | | [phone] | | | +--------+ + + + [...] + + + +---------+ + + | [place]-3 Fatty | Take by mouth. | | [...] of | | | | | | [id number]/superior | | | | | | corner, [...]
--- OUTSIDE RECORDS SUMMARY | ~2020-04-27 | XMS | Encounter Summary ---
Demographics + + + | Address | [address] | | | [place] [address] | + + + | Home Phone [...] Providers + +------+ + | Care Specialist Wound Care Name | Role | Phone | + [...] | | | Mailcode: PV430 | [place] [address] | | | | | [facility] | | | | | | [place], [place] | | | | | | [address] | | | | | | [phone] | | | +--------+ + + + [...]
--- OUTSIDE RECORDS SUMMARY | ~2020-04-27 | XMS | Encounter Summary ---
Demographics + + + | Address | [address] | | | [place] [address] | + + + | Home Phone [...] + +------+ + | Care Digital Account Director Name | Role | Phone | + +------+ + | Marta Jenkins PRIVACY DIRECTOR | PCP | | + +------+ [...] | | | | Mailcode: PV430 | [place], [place] | | | | | [facility] | [address] | | | | | [place], [place] | [phone] | | | | | [address] | | | | | | [phone] | | | +--------+ + + + [...]
--- OUTSIDE RECORDS SUMMARY | ~2020-04-27 | XMS | Encounter Summary ---
Demographics + + + | Address | [address] | | | [place] [address] | + + + | Home Phone [...] Team Providers + +------+ + | Care Direct Marketing Specialist Name | Role | Phone | [...] + | 03/17/ | Office | [facility] | Ladarius Martínez PA | MAMADOU on CPAP (Primary | | 2012 | Visit | SLEEP DISORDER [address] | [address] | Dx) | | | | [address] [place] | [place], [place] | | | | | [place] [address] | [address] | | | | | [phone] | | | +--------+---------+ + + + [...] Ravi obtained from: [facility] in [place] pressure is: 9 cm ResMed S9: Pressure: [...] to go to [facility] in [place] to get a fitting for her mask that will allow it to connect to her hose properly. I will follow up again in 1 month, sooner prn. Fifteen minutes were spent [id number], wi th the majority of time spent [...] [place] | | | | | | [address] | | | | | | | | +--------+---------+ + + + documented as of this encounter Visit Diagnoses + + | Diagnosis | + + | MAMADOU on CPAP - Primary Obstructive sleep apnea (adult) (pediatric) | + + documented in this encounter"
--- OUTSIDE RECORDS SUMMARY | ~2020-04-27 | XMS | Encounter Summary ---
Demographics + + + | Address | [address] | | | [place] [address] | + + + | Home Phone [...] Team Providers + +------+ + | Care Outpatient Interviewing Clerk Name | Role | Phone | [...] | | | Mailcode: PV430 | [facility] [place] | | | | | [facility] | [address] | | | | | [place], [place] | [phone] | | | | | [address] | | | | | | [phone] | | | +--------+ + + + [...]
--- OUTSIDE RECORDS SUMMARY | ~2020-04-27 | XMS | Encounter Summary ---
Demographics + + + | Address | [address] | | | [place] [address] | + + + | Home Phone [...] Providers + +------+ + | Care Engineering Mechanic Name | Role | Phone | + +------+ + PCP | Unavailable | + +------+ + Encounter Details +--------+ + + + + | Date | Type | Department | Care Team | Description | +--------+ + + + + | 09/14/ | Hospital | [facility] | Unknown, | | | 1991 | Encounter | MED CTR XRAY [address] | MD [address]k . | | | | | [address] [place] | | | | | | [place] [address] | (Fax) | | | | | [phone] | | | +--------+ + + + [...] [place] | | | | | | [address] | | | | | | | | +--------+---------+ + + + documented as of this encounter Visit Diagnoses Not on filedocumented in this encounter"
--- OUTSIDE RECORDS SUMMARY | ~2020-04-27 | XMS | Encounter Summary ---
Demographics + + + | Address | [address] | | | [place] [address] | + + + | Home Phone [...] Providers + +------+ + | Care Revenue Stamp Clerk Name | Role | Phone | [...] as of this encounter Progress Notes Interface, Java Developer In - 02/27/2006 3:05 AM PDTClinic Date: [...] M.D. Lloyd Garcia M.D. RT / HS [id number] / [id number] / [id number] / [id number] Watt, Java Developer In - 02/27/2006 3:05 AM PDTClinic Date: [...] is any deep infection. Lloyd Garcia M.D. Convex Grinder Operator Orthopedics and Rehabilitation Jackelyn A [id number] cc: Ninfa Barrientos MD [address] [place] [address]Yjbjguvzglljxm signed by Interface, Java Developer In at 6 3:05 AM PDTdocumented in this encounter Plan of Treatment Not on filedocumented as of this encounter Visit Diagnoses Not on filedocumented in this encounter"
--- OUTSIDE RECORDS SUMMARY | ~2020-04-27 | XMS | Encounter Summary ---
Demographics + + + | Address | [address] | | | [place] [address] | + + + | Home Phone [...] Providers + +------+ + | Care Cupola Liner Name | Role | Phone | + [...] | [facility] | MEGAN Reddy [address] | | | | | [address] | [address] | | | | | Loop Physician's | [place], [place] | | | | | [place], 3rd floor | [address] | | | | | [place], [place] | [phone] | | | | | [address] | | | | | | [phone] | | | +--------+ + + + [...]
--- OUTSIDE RECORDS SUMMARY | ~2020-04-27 | XMS | Encounter Summary ---
Demographics + + + | Address | [address] | | | [place] [address] | + + + | Home Phone [...] Team Providers + +------+ + | Care Structures Mechanic Name | Role | Phone | [...] + +---------+ + + | [facility] DEPARTMENT OF | | | | | RADIOLOGY | | | | + +---------+ + + documented in this encounter Visit Diagnoses Not on filedocumented in this encounter"
--- OUTSIDE RECORDS SUMMARY | ~2020-04-27 | XMS | Encounter Summary ---
Demographics + + + | Address | [address] | | | [place] [address] | + + + | Home Phone [...] Providers + +------+ + | Care Sock Lining Stitcher Name | Role | Phone | [...] | | | unspecified | | Rd [place], | | | | | whether | | [place] | | | | | generalized | | [address] | | | | | or | | Phone: | | | | | localized, | | [phone] | | | | | pelvic | | Fax: | | | | | region and | | [phone] | | | | | thigh Pain [...] | | | | Mailcode: [id number] | [place], [place] | inflammatory | | | | [facility] | [address] | reaction due to | | | | [place], [place] | [phone] | internal joint | | | | [address] | | prosthesis ([facility]); | | | | [phone] | | EE-NO SHOW | +--------+---------+ + [...]
--- OUTSIDE RECORDS SUMMARY | ~2020-04-27 | XMS | Encounter Summary ---
Demographics + + + | Address | [address] | | | [place] [address] | + + + | Home Phone [...] [facility] | | | | | | [address] | | | | | | Loop Physician's | | | | | | [place], [address]th Floor | | | | | | [place], [place] | | | | | | [address] | | | | | | [phone] | | | +--------+ + + + [...]
--- OUTSIDE RECORDS SUMMARY | ~2020-04-27 | XMS | Encounter Summary ---
Demographics + + + | Address | [address] | | | [place] [address] | + + + | Home Phone [...] Team Providers + +------+ + | Care Tea Tree Farm Worker Name | Role | Phone [...] as of this encounter Progress Notes Interface, Customs Compliance Manager In - 04/01/2006 3:12 AM PDTCLINIC DATE: [...] a total hip replacement. Lloyd Garcia M.D. Electric Wirer, Orth[facility]ics [facility] Rehabilitation / [id number] / [id number] / [id number] / cc: Ninfa Guillen M.D. [address] [address] signed by Interface, Customs Compliance Manager In at 04/01/2006 3:1 2 AM PDTdocumented in this encounter Plan of Treatment Not on filedocumented as of this encounter Visit Diagnoses Not on filedocumented in this encounter"
--- OUTSIDE RECORDS SUMMARY | ~2020-04-27 | XMS | Encounter Summary ---
Demographics + + + | Address | [address] | | | [place] [address] | + + + | Home Phone [...] + +------+ + | Care X Ray Equipment Tester Name | Role | Phone | [...] | | | unspecified | | Rd [place], | | | | | whether | | [place] | | | | | generalized | | [address] | | | | | or | | Phone: | | | | | localized, | | [phone] | | | | | pelvic | | Fax: | | | | | region and | | [phone] | | | | | thigh | [...] | | | | Mailcode: PV430 | [place], [place] | | | | | [facility] | [address] | | | | | [place], [place] | [phone] | | | | | [address] | | | | | | [phone] | | | +--------+---------+ + + + [...]
--- OUTSIDE RECORDS SUMMARY | ~2020-04-27 | XMS | Encounter Summary ---
Demographics + + + | Address | [address] | | | [place] [address] | + + + | Home Phone [...] Team Providers + +------+ + | Care Homicide Squad Lieutenant Name | Role | Phone | + +------+ + PCP | Unavailable | + +------+ + Encounter Details +--------+ + + + + | Date | Type | Department | Care Team | Description | +--------+ + + + + | 09/18/ | [facility] | [facility] | Helio Ahn | | | 2005 | Encounter | MED CTR SLEEP | MD Candie [address] | | | | | CENTER [address] | [address] [facility] | | | | | [place] | [place] [address] | | | | | [address] | [phone] | | | | | [phone] | | | +--------+ + + + [...] [place] | | | | | | [address] | | | | | | | | +--------+---------+ + + + documented as of this encounter Visit Diagnoses Not on filedocumented in this encounter"
--- OUTSIDE RECORDS SUMMARY | ~2020-04-27 | XMS | Encounter Summary ---
Demographics + + + | Address | [address] | | | [place] [address] | + + + | Home Phone [...] Team Providers + +------+ + | Care Shirt Ironer Supervisor Name | Role | Phone | + +------+ + | Marta Jenkins DENTAL LABORATORY TECHNICIAN | PCP | | + +------+ [...] | Jamie Mailcode: [address] [place], | | | | | [place], [place] | [place] [address] | | | | | [address] | | | | | | [phone] | | | +--------+ + + + [...]
--- OUTSIDE RECORDS SUMMARY | ~2020-04-27 | XMS | Encounter Summary ---
Demographics + + + | Address | [address] | | | [place] [address] | + + + | Home Phone [...] Providers + +------+ + | Care Insulation Helper Name | Role | Phone | [...] | | | | due to | [place], [place] | [place] | | | | | unspecified | [address] | [address] | | | | | device, | Phone: | Phone: | | | | | implant, and | [phone] | [phone] | | | | | graft | Fax: | Fax: | | | | | | [phone] | [phone] | +--------+--------+ + + + + Encounter [...] | | | | [address] | [place] [address] | internal joint | | | | Physician's | [phone] | prosthesis (HCC) | | | | Pavilion, 4th floor | | (Primary Dx) | | | | [place], [place] | | | | | | [address] | | | | | | [phone] | | | +--------+---------+ + + + [...] [facility] Orthopedics [address] [place] [address] Primary Care Physician: [address] [address] Ms. Galdamez presents to Infectious Diseases Clinic [...] procedure. Indications : Staphylococcus Aureus Joint Infection [place]-3 Fatty Acids-Vitamin E (FISH OIL) 1,000 mg [...] above discussion. ALBINO TERESA MD INFECTIOUS DISEASES [address] [place] [address] Mailcode: L608 [address] [address] documented in this e ncounter [...]
--- OUTSIDE RECORDS SUMMARY | ~2020-04-27 | XMS | Encounter Summary ---
Demographics + + + | Address | [address] | | | [place] [address] | + + + | Home Phone [...] Team Providers + +------+ + | Care Fitness Assistant Name | Role | Phone | [...] | | | | Mailcode: PV430 | [facility] [place] | (injection) | | | | [facility] | [address] | | | | | [facility] [place] | [phone] | | | | | [address] | | | | | | [phone] | | | +--------+ + + + [...]
--- OUTSIDE RECORDS SUMMARY | ~2020-04-27 | XMS | Encounter Summary ---
Demographics + + + | Address | [address] | | | [place] [address] | + + + | Home Phone [...] Providers + +------+ + | Care Bi Architect Name | Role | Phone | [...] | | | | due to | [place], [place] | [place], | | | | | internal | [address] | [place] [address] | | | | | joint | Phone: | Phone: | | | | | prosthesis | [phone] | [phone] | | | | | ([facility]) | Fax: | Fax: | | | | | | [phone] | [phone] | +--------+--------+ + + + + Encounter [...] | | | | Loop Physician's | [place], [place] | internal joint | | | | [place], 3rd floor | [address] | prosthesis (HCC) | | | | [place], [place] | [phone] | (Primary Dx) | | | | [address] | | | | | | [phone] | | | +--------+---------+ + + + [...] CLINIC FOLLOW UP Primary Care Physician: [address] [place] [address] Ms. Galdamez presents to Infectious Diseases Clinic [...] 18, a nd was therefore admitted to [facility] out of concern for R hip [...] W-FE,OTHER MIN (CENTRUM ORAL) Take by mouth. [place]-3 Fatty Acids-Vitamin E (FISH OIL) 1,000 [...] follow up in Infectious Diseases Clinic in [facility]. We are hap py to be consulted again should infectious complications arise. I spent a total of 20 minutes face to face with the patient and over 50% was time spent in counseling in which we discussed infection, antibiotics, duration of therapy, lab results, a nd follow-up planning. Carolina Putnam PA-C [facility] Department of Infectious Disease Outpatient IV Antibiotic Therapy Clinic (OPAT) Pager ID: [phone] [facility]. 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
--- OUTSIDE RECORDS SUMMARY | ~2020-04-27 | XMS | Encounter Summary ---
Demographics + + + | Address | [address] | | | [place] [address] | + + + | Home Phone [...] Team Providers + +------+ + | Care Strand Buncher Fine Wire Name | Role | Phone | + [...]
--- OUTSIDE RECORDS SUMMARY | ~2020-04-27 | XMS | Encounter Summary ---
Demographics + + + | Address | [address] | | | [place] [address] | + + + | Home Phone [...] Providers + +------+ + | Care Kitchen Operator Name | Role | Phone | [...] | | [address] | Roxann Ayala [place], | | | | | Mailcode: PV430 | [place] [address] | | | | | [facility] | | | | | | [place] | | | | | | [address] | | | | | | [phone] | | | +--------+ + + + [...] | Address | City/State/[facility] | Phone Number | | Organization [...] + | [facility] DEPARTMENT | | | | | RADIOLOGY | | | | + +---------+ + + documented in this encounter Visit Diagnoses Not on filedocumented in this encounter"
--- OUTSIDE RECORDS SUMMARY | ~2020-04-27 | XMS | Encounter Summary ---
Demographics + + + | Address | [address] | | | [place] [address] | + + + | Home Phone [...] Team Providers + +------+ + | Care Enrollment Services Vice President Name | Role | Phone [...] | | | | Mailcode: PV430 | [place], [place] | | | | | [facility] | [address] | | | | | [place], [place] | [phone] | | | | | [address] | | | | | | [phone] | | | +--------+ + + + [...]
--- OUTSIDE RECORDS SUMMARY | ~2020-04-27 | XMS | Encounter Summary ---
Demographics + + + | Address | [address] | | | [place] [address] | + + + | Home Phone [...] Providers + +------+ + | Care Certified Income Tax Preparer Name | Role | Phone | [...] as of this encounter Progress Notes Interface, Live Ammunition Inspector In - 04/19/2006 3:09 AM PDTCLINIC [...] questions. Jason Castano M.A. Orthopedics / HS [id number] / [id number] / [id number] / Tdocumented in this encounter Plan of Treatment Not on filedocumented as of this encounter Visit Diagnoses Not on filedocumented in this encounter"
--- OUTSIDE RECORDS SUMMARY | ~2020-04-27 | XMS | Encounter Summary ---
Demographics + + + | Address | [address] | | | [place] [address] | + + + | Home Phone [...] Team Providers + +------+ + | Care Blocker And Polisher Name | Role | Phone [...] as of this encounter Progress Notes Interface, Tax Accountant In - 09/08/2006 1:11 AM PSTCLINIC DATE: [...] evaluation. Lloyd Garcia MD / [id number] / [id number] / [id number] / cc: Matthew Garcia MD [address] [place], [place] [id number] signed by Interface, Tax Accountant In at 09/08/2006 1:11 AM PSTdocumented in this encounter Plan of Treatment Not on filedocumented as of this encounter Visit Diagnoses Not on filedocumented in this encounter"
--- OUTSIDE RECORDS SUMMARY | ~2020-04-27 | XMS | Encounter Summary ---
Demographics + + + | Address | [address] | | | [place] [address] | + + + | Home Phone [...] Team Providers + +------+ + | Care Aerospace Manager Name | Role | Phone | [...] as of this encounter Progress Notes Interface, Bottom Stainer In - 04/28/2005 7:30 PM PDTClinic Date: [...] signs of recurrent infection. Lloyd Garcia M.D. City Editor [facility] / [id number] / [id number] / [id number] / [id number] cc: Ninfa Guillen M.D. [address] [place], [place] [address]Bnjoshboomkqjq signed by Interface, Bottom Stainer In at 04/28/2005 7:3 0 PM PDTdocumented in this encounter Plan of Treatment Not on filedocumented as of this encounter Visit Diagnoses Not on filedocumented in this encounter"
--- OUTSIDE RECORDS SUMMARY | ~2020-04-27 | XMS | Encounter Summary ---
Demographics + + + | Address | [address] | | | [place] [address] | + + + | Home Phone [...] Team Providers + +------+ + | Care Editor Dictionary Name | Role | Phone | + [...] + + | 09/29/ | Office | [facility] | Xiang Sepulveda, | Other chronic pain | | 2019 | Visit | 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 It should de crease after therapy has begun. Last 4 PEG Scores: No flowsheet data found. Opioid Risk Tool (ORT): Total Score Pulse: 94 BP: 160/88 SpO2: 98 % (From Chronic Pain tab; printable questionnaires in Bhutanese) Interpretation of Total Score: 0 to 3 [...] ; Surg andrés: Rustam Schmid MD; Location: [facility] [place]IN [place] Review of Systems Objective: Vital [...] reviewed, listed controlled substances are consistent with [facility] prescriptions and patient reported use. Controlled [...] Patient states that he has seen a clinical informatics strategist and Has started a diet and every [...] imited to physical therapy, massage therapy, acupuncture, personal care home administrator, along with jabari mmended psychological counseling, either [...] weeks. This document has been created using BitX Voice Recognition software and [employer]. The entry has been reviewed for content and accuracy, but there may still exist "sound alike" manpower development advisor word errors and/or unintended additions and [...] [place] | | | | | | [id number] | | | | | | | [...]
--- OUTSIDE RECORDS SUMMARY | ~2020-04-27 | XMS | Encounter Summary ---
Demographics + + + | Address | [address] | | | [place] [address] | + + + | Home Phone [...] Providers + +------+ + | Care Powertrain Design Engineer Name | Role | Phone [...] | | | | [facility] | [address] | | | | | [place], [place] | [phone] | | | | | [address] | | | | | | [phone] | | | +--------+ + + + [...]
--- OUTSIDE RECORDS SUMMARY | ~2020-04-27 | XMS | Encounter Summary ---
Demographics + + + | Address | [address] | | | [place] [address] | + + + | Home Phone [...] Team Providers + +------+ + | Care Canary Raiser Name | Role | Phone | [...] [facility] | | | | | | [address] | | | | | | Loop Physician's | | | | | | [place], [facility] Floor | | | | | | [place], [place] | | | | | | [address] | | | | | | [phone] | | | +--------+ + + + [...] + + + +---------+ + + | [place]-3 Fatty | Take by mouth. | | [...]
--- OUTSIDE RECORDS SUMMARY | ~2020-04-27 | XMS | Encounter Summary ---
Demographics + + + | Address | [address] | | | [place] [address] | + + + | Home Phone [...] Providers + +------+ + | Care Batch Maker Name | Role | Phone | [...] as of this encounter Progress Notes Interface, Facilities Project Manager In - 2006 1:06 AM PDTCLINIC DATE: 06/24/2003 ORTHOPEDIC CLINIC HISTORY: This is a 43-year-old obese female followed for right hip degenerative joint disease, returns to clinic today having had no relief after her last 2 fluoroscopically guided cortisone injections on October 05, 2002, and January 26, 2003. The x-rays at that time revealed gfemsspu-gi-xzogaswz degenerative joint disease. I confirmed that the [...] She does continue to drive in from [place] for her care here. She continues to [...] times per day. PHYSICAL EXAMINATION GENERAL: A jovbntab-ix-ymafwffl obese short statured woman who ambulates with [...] authorization has been obtained. Lloyd Garcia M.D. Direct Customer Service Representative of Orthopedics and Rehabilitation / [id number] / [id number] / [id number] / cc: Ninfa Guillen M.D. [address] [place] [id number] signed by Interface, Facilities Project Manager In at 2006 1:06 AM [facility] umented in this encounter Plan of Treatment Not on filedocumented as of this encounter Visit Diagnoses Not on filedocumented in this encounter"
--- OUTSIDE RECORDS SUMMARY | ~2020-04-27 | XMS | Encounter Summary ---
Demographics + + + | Address | [address] | | | [place] [address] | + + + | Home Phone [...] Providers + +------+ + | Care Enrollment Manager Name | Role | Phone | [...]
--- OUTSIDE RECORDS SUMMARY | ~2020-04-27 | XMS | Encounter Summary ---
Demographics + + + | Address | [address] | | | [place] [address] | + + + | Home Phone [...] Team Providers + +------+ + | Care Assault Boat Coxswain Name | Role | Phone | + [...] | [facility] | [address] | [place] [address] | | | PATHOLOGY | [address] | | | + + + + + | [facility] | [address] [place] [address] [address] | [place] [address] | | | PATHOLOGY | [address] [...] by | | | | | | [facility] | | | | | | [facility]. | | | | + + + + + + + + | Specimen | + + | | + + + + + + + | Performing | Address | City/State/Zipcode | Phone Number | | Organization | | | | + + + + + | [facility] | [address] | [place] [address] | | | LABORATORY | | | [...] [facility] | [address] | [place] [address] | | | PATHOLOGY | [address] | | | + + + + + | [facility] | [facility] [address] | [place] [address] | | | PATHOLOGY | [address] [...] | [facility] | [address] | [place] [address] | | | PATHOLOGY | [address] | | | + + + + + | [facility] | [address] [place] [address] [address] | [place] [address] | | | PATHOLOGY | [address] [...] by | | | | | | [facility] | | | | | | [facility]. | | | | + + + + + + + + | Specimen | + + | | + + + + + + + | Performing | Address | City/State/Zipcode | Phone Number | | Organization | | | | + + + + + | [facility] | [address] | [place] [address] | | | LABORATORY | | | [...] | + + + + + | [facility] | [address] | [place] [address] | | | PATHOLOGY | [address] | | | + + + + + | [facility] | [address] | [place] [address] | | | PATHOLOGY | [address] | | | + + + + + documented in this encounter Visit Diagnoses Not on filedocumented in this encounter"
--- OUTSIDE RECORDS SUMMARY | ~2020-04-27 | XMS | Encounter Summary ---
Demographics + + + | Address | [address] | | | [place] [address] | + + + | Home Phone | | + + + | Preferred Language | Unknown | + + + | Marital Status | | + + + | Pentecostalism Affiliation | 1076 | + + + | Race | Unknown | + + + | Ethnic Group | Unknown | + + + Author + + + | Author | [facility] | | | and [place] | + + + | Organization | [facility] | | [...] + +------+ + | Care Machine Tool Rebuilder Name | Role | Phone | + +------+ + PCP | Unavailable | + +------+ + Encounter Details +--------+ + + + + | Date | Type | Department | Care Team | Description | +--------+ + + + + | 01/29/ | Hospital | [facility] | Helio Ahn | | | 2000 | Encounter | MED CTR SLEEP | MD [address] | | | | | CENTER [address] | [address] [place] | | | | | [place] | [place] [address] | | | | | [address] | [phone] | | | | | [phone] | | | +--------+ + + + [...] [place] | | | | | | [address] | | | | | | | | +--------+---------+ + + + documented as of this encounter Visit Diagnoses Not on filedocumented in this encounter"
--- OUTSIDE RECORDS SUMMARY | ~2020-04-27 | XMS | Encounter Summary ---
Demographics + + + | Address | [address] | | | [place] [address] | + + + | Home Phone [...] Team Providers + +------+ + | Care Mine Engineering Supervisor Name | Role | Phone | [...] Echo | | | | | | Karne Del Rosario NP | [facility] [address] | | | | | TRANSTHORACI | [address] | [address] | | | | | C | [address] | [address] | | | | | ECHOCARDIOGR | Rd | [place] | | | | | AM, ADULT | [place], [place] | [facility] | | | | | | [address] | floor | | | | | | | [place], [place] | | | | | | | [address] | | | | | | | Phone: | | | | | | | [phone] | +--------+--------+ + + + + Diagnostic [...] | | | X-RAY | Karen E, SALES UTILITY REPRESENTATIVE | [address] | | | | | ASPIRATION | [address] | [address] | | | | | OR INJECTION | [facility] | Tiro for | | | | | MAJOR JOINT | Rd | Health and | | | | | W/NEEDLE | [place], [place] | Healing, | | | | | PLCMT | [address] | Building [address], | | | | | | | 3rd Floor | | | | | | | [place], [place] | | | | | | | [address] | | | | | | | Phone: | | | | | | | [phone] | | | | | | | Fax: | | | | | | | [phone] | +--------+--------+ + + + + Reason [...] | | | | | | | [address] | | | | | | | [place]co [place]ett | | | | | | | Jamie [facility] | | | | | | | Hospital | | | | | | | [place], [place] | | | | | | | [address] | | | | | | | Phone: | | | | | | | [phone] | +--------+--------+ + + + + Encounter [...] Rd | | | 10/23/ | | Mercerasmita Vanegason | [place], [place] | | | 2010 | | (MNP/[facility]) | [address] | | | | | [place], [place] | [phone] | | | | | [address] | | | | | | | Jillian Bee MD | | | | | | [address] | | | | | | [address] [place], | | | | | | [place] [address] | | | | | | [phone] | | | | | | | | | | | | Tisha Figueroa FNP | | | | | | [address] | | | | | | [address] [place], | | | | | | [place] [address] | | | | | | [phone] | | | | | | | | | | | | Rustam Duenas MD | | | | | | [address] | | | | | | [address] [place], | | | | | | [place] [address] | | | | | | [phone] | | | | | | | | | | | | Benson Cooper MD | | | | | | [address] [place] | | | | | | [address] [place], [place] | | | | | | [address] | | | | | | | | | | | | Kalyan Arias MD | | | | | | [address] | | | | | | [address] [facility], | | | | | | [place] [address] | | | | | | [phone] | | | | | | | [...] might be different f rom the original. [facility] DEPARTMENT OF ORTHOPAEDICS & REHABILITATION INPATIENT HOSPITAL DISCHARGE SUMMARY & INTERDISCIPLINARY INSTRUCTIONS Patient: Chastity Galdamez CSN: [id number] Admission Date: 10/12/2010 Discharge Date: 10/22/2010 Attending Physician: Kalyan Arias MD PCP: Travis Cruz MD Service: [facility] Orthopaedics & Rehabilitation Diagnoses Principal Final Diagnosis: [...] sut ure/staple removal and wound check. Call [phone] to arrange appointment date and time. Outpatient antibiotics: [facility] referral has been made (for outpatient antibiotics). -While on outpatient antibiotics, weekly CBC/diff, CMP, ESR, & CRP should be checked, with results faxed to Dr. Teresa or Elvia SPENCE at [facility] clinic (fax #[phone]). Current Discharge Medication List START taking these [...] W-FE,OTHER MIN (CENTRUM ORAL) Take by mouth. Alton-3 Fatty Acids-Vitamin E (FISH OIL) 1,000 mg [...] administration instructions. - Call orthopedic clinic at [phone] if any persistent, localized swelling that does [...] and ask for the orthopaedic surgery resident material control clerk. Additional postop instructions/ What to expect: -Apply [...] a pharmacy. Please arrange for someone to sisal picker your prescription or allow additional time [...] 2 weeks (or as previously scheduled). Call [phone] to confirm or schedul e this appointment. [...] + + + +---------+ + + | Alton-3 Fatty | Take by mouth. | | [...] 11 Date: 10/23/2010 Patient: CHASTITY Osei TALLY [id number] Interval Hx: Afebrile. Wants to go home. [...] may arrange timely follow up in [facility] clinic. While o n outpatient antibiotics, weekly CBC/diff, CMP, ESR, & CRP should be checked, with results f axed to Dr. Teresa or Elvia SPENCE at [facility] clinic (fax #[phone]). -Dispo plan: pt requires 3 days of flagyl treatment for C. Diff before discharge to long-term facility. D/C to long-term facility today Samuel Montaño MD - 10/22/2010 7:24 AM PST Ortho Progress Note Hospital Day: 10 Date: 10/22/2010 Author: SAMUEL BOWEN MD Patient: CHASTITY Osei TALLY [id number] Interval Hx: Afebrile. WBC up yesterday and [...] Teresa or Elvia Putnam PA at [facility] clinic (fax #[phone]). -Dispo plan: pt requires 3 days of flagyl treatment for C. Diff before discharge to [facility]. Possible D/C to long-term facility today Samuel Montaño MD - 10/21/2010 7:16 AM PST Ortho Progress Note Hospital Day: 9 Date: 10/21/2010 Author: SAMUEL BOWEN MD Patient: CHASTITY Osei TALLY [id number] Interval Hx: Afebrile overnight. Comfortable and without [...] Teresa or Elvia Putnam PA at [facility] clinic (fax #[phone]). -Dispo plan: pt requires 3 days of [...] care for this patient. LUCERO KNOX MD [address] Clinical Hospitalist Service [facility] [place] EPIC DEPARTMENT: Hosp ([facility])- [id number] Place of Service: IP - [address] [facility] [id number] CPT: 61550 Subsequent Visit Exp Prob Foc/Mod Complexity 25 min I spent 25 minutes dpqu-pv-sbsi with this patient of which greater than [...] patient is discharged. Please notify OPAT clinic [phone] re: discharge date, where patient is going (i.e. home, SNF ) and home IV provider if applicable. [facility] Department of Infectious Disease Outpatient IV Antibiotic Therapy Clinic (OPAT) Pager ID: [phone] Mail Code U046 [place] [address] OPAT teaching note: Education and training for [...] . I gave the patient my [facility] business card, and let them know that our clinical medical assistant, Tonja Keller, will be contacting them after discharge to make their first [facility] clinic follow-up appointment. I explained that [...] from antibiotics occur, we will ask the [facility] infusion agency to alter the dose of antibiotics, or even change the antibiotics. I expla ined that we will communicate patient's progress and plan with PCP, surgeon, and the home in [employer]. I reviewed the possible complications PICC lines [...] unable to contact the IV company or [facility], then to present to the ED. I verified that the patient has a primary care provider, and that they will follow-up with them following this hospitalization in regards to other medical issues such as chronic pain, diabetes, or high blood pressure for which we do not provide any care. I provided the patient with the [facility] welcome letter that reiterates the above teaching. I spent 25 minutes in education and training in patient self management for IV antibiotic a nd PICC line use with greater than 50% spent on counseling and/or coordination of care. [facility] DEPARTMENT: IDC INFECT DIS CONSULT - [id number] Place of Service: Inpatient Date of Service: 10/20/2010 CSN: [id number] Suggested Level of Care: 87029- Subsequent hosp care, 25 min Javier Bunn [...] Dr. Teresa or Elvia SPENCE at [facility] clinic (fax #[phone]). -Please ensure there is a baseline CBC, CMP, ESR, and CRP prior to discharge.--ordered tod ay -Dispo plan: pt requires 3 days of flagyl treatment for C. Diff before discharge to [facility]. Plan to D/C to long-term facility on [...] (pt does not want insulin coverage) (10/18/10 8216) Lab Results Component Value Date INR 1.07 [...] Prophylaxis: Per primary team. LUCERO KNOX MD Sink Cuttercontact center manager Clinical Hospitalist Service [facility] Medicine Department of Medicine [facility] DEPARTMENT: Hosp ([facility])- [id number] Place of Service: - [address] Modifiers:GC Resident Involved: No CPT: 48224 Subsequent Visit Exp Prob Foc/Mod Complexity 25 min I spent 25 minutes nlsg-je-mloh with this patient of which greater than [...] Intake/Output Summary (Last 24 hours) at 10/19/10 0642 Last data filed at 10/19/10 0422 Gross [...] Prophylaxis: Per primary team. LUCERO KNOX MD Sink Cuttercontact center manager Clinical Hospitalist Service Division of Hospital Medicine Department of Medicine [facility] DEPARTMENT: Hosp ([facility])- [id number] Place of Service: Modifiers:GC Resident Involved: No CPT: 38538 Subsequent Visit Exp Prob Foc/Mod Complexity 25 min I spent 25 minutes dqvj-wq-vywz with this patient of which greater than [...] (10/16/102111) CBG Intervention: (Pt refused CBG) (10/17/10 1575) Lab Results Component Value Date INR 1.07 [...] as well as aspirate LUCERO KNOX MD Sink Cuttercontact center manager Clinical Hospitalist Service [facility] Medicine Department of Medicine [facility] DEPARTMENT: Hosp ([facility])- [id number] Place of Service: IP - 71752 Modifiers:GC Resident Involved: No CPT: 36291 Subsequent Visit Detailed/High complexity 35 min I spent 40 minutes atzu-yb-uaaw with this patient of which greater than [...] MD - 10/16/2010 9:36 PM PST [facility] ORTHOPAEDIC SURGERY POST OPERATIVE CHECK IDENTIFICATION: Patient: [...] consult. WBAT BLE xrays Jillian Farfan MD [facility] [place] Department of Orthopaedics & Rehabilitation [address] [facility] Mail Code: OP31 Amari TAMEZ [id number] [email or web address] Pager: [phone] The above was formulated both independently and [...] Wearing Priscilla Hose. DAVID KNIGHT MD [facility] 6A Sink Cuttercontact center manager Clinical Hospitalist Service [facility] EPIC DEPARTMENT: Hosp ([facility])- [id number] Place of Service: IP - 46062 [facility] [id number] Modifiers:GC Resident Involved: No Service: Ortho Suggested CPT: 47171 Subsequent Visit Exp Prob Foc/Mod Complexity 25 min I spent more than 30 minutes dzkw-xh-xdsc with the patient of which greater than 50% was sp ent co-ordinating care acoreji, David Evangelista MD - 10/15/2010 7:57 AM PST CLINICAL HOSPITALIST SERVICE ([facility])-PROGRESS NOTE HOSPITAL DAY: 3 Author: DAVID KNIGHT [...] she is quite immobile. DAVID KNIGHT MD [address] Sink Cuttercontact center manager Clinical Hospitalist Service [facility] [place] EPIC DEPARTMENT: Hosp ([facility])- [id number] Place of Service: - [address] [facility] [id number] Modifiers:GC Resident Involved: No Service: Primary Suggested CPT: 26860 Subsequent Visit Detailed/High complexity 35 min I spent more than 35 minutes syxn-lo-eouz with the patient of which greater than [...] + + + | IP CONSULT TO [facility] | Routin | 10/19/2010 | | [...] [facility] | [address] | [place], [place] | | | THERAPY | [address] | [address] | | + + + + + [...] + + + | [facility] DEPARTMENT | [address] | [place] [address] | | | PATHOLOGY | [address] [...] DEPARTMENT OF | [address] | [place] [address] | | | PATHOLOGY | [address] [...] + + + | [facility] DEPARTMENT | [address] | [place] [address] | | | PATHOLOGY | [address] [...] [facility] | [address] | [place], [place] | | | THERAPY | [facility] | [address] | | + + + + + [...] [facility] | [address] | [place], [place] | | | SUPRIYA POINT OF CARE | [address] | [address] | | | TESTS | | | [...] + + + | [facility] DEPARTMENT | [address] | [place] [address] | | | PATHOLOGY | [address] [...] (H) | 60 - 99 mg/dL | [facility] | | | PLASMA | | | [...] DEPARTMENT OF | [address] | [place] [address] | | | PATHOLOGY | [address] [...] + + + | [facility] DEPARTMENT | [address] [facility] | [place] [address] | | | PATHOLOGY | [address] [...] + + + | [facility] | [address] | [place], [place] | | | THERAPY | [address] | [address] | | + + + + + [...] | + + + + + | [facility] DEPARTMENT OF | [address] | [place] [address] | | | PATHOLOGY | [address] [...] [facility] | [address] | [place] [address] | | | PATHOLOGY | [address] [...] + + | [facility] DEPARTMENT OF | [address] | [place] [address] | | | PATHOLOGY | [address] [...] Bunch, | | | | | | ADMINISTRATION ASSISTANT | | | | | | | | | | | | | | | | | | | | | | | | | | | | | |Electronically Signed by: Angelo Bunch ADMINISTRATION ASSISTANT | | | | + + + + +-------- ------+ + + | Specimen | + + | | + + + + + + + | Performing | Address | City/State/Zipcode | Phone Number | | Organization | | | | + + + + + | [facility] | [address] | [place], [place] | | | THERAPY | [address] | [address] | | + + + + + [...] [address] [facility] | [place], [place] | | | THERAPY | [facility] | [address] | | + + + + + [...] [facility] | [address] | [place], [place] | | | THERAPY | [address] | [address] | | + + + + + [...] effective 10/26/08 | [facility] | | R[facility] ([facility]) Stacy | [address] | | [place] [address] [facility] | LABORATORY | | [place] [address] | | + + + + + + + + | Performing | Address | City/State/Zipcode | Phone Number | | Organization | | | | + + + + + | [facility] | [address] [facility] | [place] [address] | | | LABORATORY | | | [...] DEPARTMENT OF | [address] | [place] [address] | | | PATHOLOGY | [address] [...] + + + | [facility] DEPARTMENT OF | [address] | [place] [address] | | | PATHOLOGY | [address] | | | + + + + + SEDIMENTATION RATE (10/20/2010 6:44 AM PST) + +---------+ + + + | Component | Value | Ref Range | Performed | Pathologist | | | | | At | Signature | + +---------+ + + + | SEDIMENTATI | 108 (H) | <31 mm/hr | [facility] | | | ON RATE | | [...] [facility] | [address] | [place] [address] | | | PATHOLOGY | [address] [...] | + + + + + | [facility] | [address] | [place] [address] | | | LABORATORY | | | [...] + + + | [facility] DEPARTMENT OF | [address] | [place] [address] | | | PATHOLOGY | [address] [...] Miles, | | | | | | ADMINISTRATION ASSISTANT | | | | | | | [...] [facility] | [address] | [place], [place] | | | THERAPY | [address] | [address] | | + + + + + [...] | + + + + + | [facility] DEPARTMENT OF | [address] | [place] [address] | | | PATHOLOGY | [address] [...] [facility] | [address] | [place] [address] | | | PATHOLOGY | [address] [...] [facility] | [address] | [place] [address] | | | PATHOLOGY | [address] | | | + + + + + IP CONSULT TO [facility] TEAM (10/19/2010 10:48 AM PST) + [...] Long 1cm Trimmed Lot # (or Sticker): [id number] INSERTION SITE: | | | - Cephalic [...] CXR Placed [place]: [place] [id number] | | | Assisted by: na | [...] CATHETERProduct Name: BoogieConstruction: | | Single4 Fr60cm Gnmx0dp TrimmedLot # (or Sticker): [id number] SITE: - | | CephalicLeftLocal anesthetic used: [...] by CXRPlaced by: Anabella Ramirez RN IVT [id number] | | by: na | |PICC CATHETER | |Product Name: Boogie | |Construction: Single | |4 Fr | |60cm Long | |1cm Trimmed | |Lot # (or Sticker): [id number] | | | |INSERTION SITE: - Cephalic [...] | |Placed by: [place] [id number] | |Assisted by: na | + + X-RAY PORTABLE CHEST 1 VIEW (10/19/2010 10:45 AM PST) + + + + + + | Component | Value | Ref Range | Performed | Pathologist | | | | | At | Signature | + + + + + + | X-RAY | STUDY: DE CHEST 1 VIEW | | | | [...] +---------+ + + | [facility] DEPARTMENT OF | | | | | [...] Guardado, | | | | | | ADMINISTRATION ASSISTANT | | | | + + + + + + + + | Specimen | + + | | + + + + + + + | Performing | Address | City/State/Zipcode | Phone Number | | Organization | | | | + + + + + | [facility] | [address] | [place], [place] | | | THERAPY | [address] | [address] | | + + + + + [...] [facility] | [address] | [place] [address] | | | PATHOLOGY | [address] [...] DEPARTMENT OF | [address] | [place] [address] | | | PATHOLOGY | [address] [...] [facility] | [address] | [place] [address] | | | PATHOLOGY | [address] [...] [facility] | [address] | [place], [place] | | | THERAPY | [address] | [address] | | + + + + + [...] [facility] | [address] | [place], [place] | | | SUPRIYA POINT OF CARE | [address] | [address] | | | TESTS | | | [...] | [address] | [place] [address] | | | PATHOLOGY | [address] [...] At | + + + | RLB ([facility]) Reg[facility] | REGIS | | [place] [address] [facility] | [facility] | | [place] [address] | LAB-MICRO | + + + + + + + + | Performing | Address | City/State/Zipcode | Phone Number | | Organization | | | | + + + + + | [facility] | [address] [facility] | [place] [address] | | | LAB-MICRO | | | [...] + + + | [facility] DEPARTMENT | [address] | [place] [address] | | | PATHOLOGY | [address] [...] | 60 - 99 mg/dL | [facility] - | | | GLUCOSE, | | [...] [facility] | [address] | [place], [place] | | | JADA EPPS OF CARE | [address] | [address] | | | TESTS | | | [...] [facility] | [address] | [place], [place] | | | JADA EPPS OF CARE | [address] | [address] | | | TESTS | | | [...] + + + | [facility] DEPARTMENT OF | [address] | [place] [address] | | | PATHOLOGY | [address] [...] [facility] | [address] | [place] [address] | | | PATHOLOGY | [address] [...] [facility] | [address] | [place] [address] | | | PATHOLOGY | [address] [...] [address] [facility] | [place], [place] | | | THERAPY | [address] | [address] | | + + + + + [...] [facility] | [address] | [place], [place] | | | THERAPY | [address] | [address] | | + + + + + [...] [facility] | [address] | [place], [place] | | | THERAPY | [address] | [address] | | + + + + + [...] +---------+ + + | [facility] DEPARTMENT OF | | | | | [...] RLB ([address]) | | | [facility] [address] | | | [place] [address] | | + + + + + + + + | Performing | Address | City/State/Zipcode | Phone Number | | Organization | | | | + + + + + | [facility] | [address] | [place] [address] | | | LABORATORY | | | [...] [facility] | [address] | [place], [place] | | | THERAPY | [address] | [address] | | + + + + + [...] [facility] | [address] | [place], [place] | | | THERAPY | [address] | [address] | | + + + + + [...] [facility] | [address] | [place], [place] | | | JADA EPPS OF [facility] | [address] | [address] | | | TESTS | | | [...] [facility] | [address] | [place], [place] | | | JADA EPPS OF CARE | [address] | [address] | | | TESTS | | | [...] J[facility] | [address] | [place], [place] | | | SUPRIYA STRAWBERRY POINT OF [facility] | [address] | [address] | | | TESTS | | | [...] [facility] | [address] | [place], [place] | | | THERAPY | [address] | [address] | | + + + + + [...] [facility] | [address] | [place] [address] | | | PATHOLOGY | [address] [...] | + + + + + | [facility] OF | [address] | [place] [address] | | | PATHOLOGY | [address] [...] | + + + + + | [facility] DEPARTMENT OF | [address] | [place] [address] | | | PATHOLOGY | [address] [...] + + + | [facility] DEPARTMENT OF | [address] | [place] [address] | | | PATHOLOGY | [address] [...] + + + | [facility] DEPARTMENT OF | [address] | [place] [address] | | | PATHOLOGY | [address] [...] + + + | [facility] | [address] | [place] [address] | | | LAB-MICRO | | | [...] + + + | [facility] | [address] | [place] [address] | | | LAB-MICRO | | | [...] Lab) | | | | | | [facility] [address] | | | | | | [address] | | | [address] | | | | | | [place] [address] | | | | + + + + + + + + | Specimen | + + | | + + + + + + + | Performing | Address | City/State/Zipcode | Phone Number | | Organization | | | | + + + + + | [facility] | [address] | [place] [address] | | | LAB-MICRO | | | [...] + + + | [facility] | [address] | [place] [address] | | | LAB-MICRO | | | [...] Lab) | | | | | | [facility] | | | | | | [address] [place] | | | | [address] | | | | | | [place] [address] | | | | + + + + + + + + | Specimen | + + | | + + + + + + + | Performing | Address | City/State/Zipcode | Phone Number | | Organization | | | | + + + + + | [facility] | [address] | [place] [address] | | | LAB-MICRO | | | [...] + + + + + | [facility] | [address] | [place] [address] | | | LAB-MICRO | | | [...] Permanente | | | | | | [address] | | | | | | [place], | | | | | | [place] [address] | | | | + + + + + + + + | Specimen | + + | | + + + + + + + | Performing | Address | City/State/Zipcode | Phone Number | | Organization | | | | + + + + + | [facility] | [address] | [place] [address] | | | LAB-MICRO | | | [...] Lab) | | | | | | [facility] | | | | | | [address] | | | [address] | | | | | | [place] [address] | | | | + + + + + + + + | Specimen | + + | | + + + + + + + | Performing | Address | City/State/Zipcode | Phone Number | | Organization | | | | + + + + + | [facility] | [address] | [place] [address] | | | LAB-MICRO | | | [...] + + + | [facility] | [address] | [place] [address] | | | LAB-MICRO | | | [...] + + + | [facility] | [address] | [place] [address] | | | LAB-MICRO | | | [...] Lab) | | | | | | [facility] [address] | | | | | | [address] | | | [address] | | | | | | [place] [address] | | | | + + + + + + + + | Specimen | + + | | + + + + + + + | Performing | Address | City/State/Zipcode | Phone Number | | Organization | | | | + + + + + | [facility] | [address] | [place] [address] | | | LAB-MICRO | | | [...] + + + | [facility] | [address] | [place] [address] | | | LAB-MICRO | | | [...] + + + | [facility] | [address] | [place] [address] | | | LAB-MICRO | | | [...] Permanente | | | | | | [address] | | | | | | [place], | | | | | | [place] [address] | | | | + + + + + + + + | Specimen | + + | | + + + + + + + | Performing | Address | City/State/Zipcode | Phone Number | | Organization | | | | + + + + + | [facility] | [address] | [place] [address] | | | LAB-MICRO | | | [...] + + + | [facility] | [address] | [place] [address] | | | LAB-MICRO | | | [...] + + + | [facility] | [address] | [place] [address] | | | LAB-MICRO | | | [...] Lab) | | | | | | [facility] | | | | | | [address] | | [address] | | | | | | [place] [address] | | | | + + + + + + + + | Specimen | + + | | + + + + + + + | Performing | Address | City/State/Zipcode | Phone Number | | Organization | | | | + + + + + | [facility] | [address] | [place] [address] | | | LAB-MICRO | | | [...] + + + | [facility] | [address] | [place] [address] | | | LAB-MICRO | | | [...] + + + | [facility] | [address] | [place] [address] | | | LAB-MICRO | | | [...] RLB | | | | | | ([address] Lab) | | | | | | [facility] | | | | | | [address] | | | | | | [address] | | | | | | [place] [address] | | | | + + + + + + + + | Specimen | + + | | + + + + + + + | Performing | Address | City/State/Zipcode | Phone Number | | Organization | | | | + + + + + | [facility] | [address] | [place] [address] | | | LAB-MICRO | | | [...] Lab) | | | | | | [facility] | | | | | | [facility]ermanente | | | | | | [address] | | | | | | [place], | | | | | | [place] [address] | | | | + + + + + + + + | Specimen | + + | | + + + + + + + | Performing | Address | City/State/Zipcode | Phone Number | | Organization | | | | + + + + + | [facility] | [address] | [place] [address] | | | LAB-MICRO | | | [...] + + + | [facility] | [address] | [place] [address] | | | LAB-MICRO | | | [...] + + + | [facility] | [address] | [place] [address] | | | LAB-MICRO | | | [...] Lab) | | | | | | [facility] | | | | | | [address] | | | [address] | | | | | | [place] [address] | | | | + + + + + + + + | Specimen | + + | | + + + + + + + | Performing | Address | City/State/Zipcode | Phone Number | | Organization | | | | + + + + + | [facility] | [address] | [place] [address] | | | LAB-MICRO | | | [...] + + + | [facility] | [address] | [place] [address] | | | LAB-MICRO | | | [...] RLB | | | | | | ([address] Lab) | | | | | | [facility] | | | | | | [address] | | | | | | [address] | | | | | | [place] [address] | | | | + + + + + + + + | Specimen | + + | | + + + + + + + | Performing | Address | City/State/Zipcode | Phone Number | | Organization | | | | + + + + + | [facility] | [address] | [place] [address] | | | LAB-MICRO | | | [...] | + + + + + | [facility] | [address] | [place] [address] | | | LAB-MICRO | | | [...] | | | | | | [facility] | | | | | | [address] | | | | | | [place], | | | | | | [place] [address] | | | | + + + + + + + + | Specimen | + + | | + + + + + + + | Performing | Address | City/State/Zipcode | Phone Number | | Organization | | | | + + + + + | [facility] | [address] | [place] [address] | | | LAB-MICRO | | | [...] + + + | [facility] | [address] | [place] [address] | | | LAB-MICRO | | | [...] + + + + + | [facility] | [address] | [place] [address] | | | LAB-MICRO | | | [...] Lab) | | | | | | [facility] | | | | | | [address] | | | | [address] | | | | | | [place] [address] | | | | + + + + + + + + | Specimen | + + | | + + + + + + + | Performing | Address | City/State/Zipcode | Phone Number | | Organization | | | | + + + + + | [facility] | [address] | [place] [address] | | | LAB-MICRO | | | [...] + + + | [facility] | [address] | [place] [address] | | | LAB-MICRO | | | [...] RLB | | | | | | ([address] Lab) | | | | | | [facility] | | | | | | [address] | | | | | | [address] | | | | | | [place] [address] | | | | + + + + + + + + | Specimen | + + | | + + + + + + + | Performing | Address | City/State/Zipcode | Phone Number | | Organization | | | | + + + + + | [facility] | [address] | [place] [address] | | | LAB-MICRO | | | [...] + + + | [facility] | [address] | [place] [address] | | | LAB-MICRO | | | [...] Molly | | | | | | [address] | | | | | | [place], | | | | | | [place] [address] | | | | + + + + + + + + | Specimen | + + | | + + + + + + + | Performing | Address | City/State/Zipcode | Phone Number | | Organization | | | | + + + + + | [facility] | [address] | [place] [address] | | | LAB-MICRO | | | [...] | + + + + + | [facility] | [address] | [place] [address] | | | LAB-MICRO | | | [...] + + + | [facility] | [address] | [place] [address] | | | PATHOLOGY | [address] [...] [facility] | [address] | [place] [address] | | | PATHOLOGY | [address] [...] effective 02/15/09 | [facility] | | RLB ([address] [facility]) [facility] | [facility]IONAL | | [place] [address] [facility] | LABORATORY | | [place] [address] | | + + + + + + + + | Performing | Address | City/State/Zipcode | Phone Number | | Organization | | | | + + + + + | [facility] | [address] | [place] [address] | | | LABORATORY | | | [...] At | + + + | RLB ([address] [facility]) | [facility] | | [facility] [place] [address] [address] [facility] | REGIONAL | | [place] [address] | LABORATORY | + + + + + + + + | Performing | Address | City/State/Zipcode | Phone Number | | Organization | | | | + + + + + | [facility] | [address] | [place] [address] | | | LABORATORY | | | [...] [facility] | [address] | [place], [place] | | | THERAPY | [address] | [address] | | + + + + + OPERATION RECORD (10/16/2010 12:00 AM PST) + + + | Narrative | Performed At | + + + | [id number] | | | [id number] CHAD | | | CHASTITY Osei [id number] Date: | | | 10/16/2010 Attending Surgeon: | | | Kalyan Arias M.D. Retail Greeter(s): | | | Raymond Valdes M.D. Preoperative [...] presented as an ED transfer to [facility] approximately 3 days | | | prior [...] | multimodal DVT prophylaxis. Kalyan Arias M.D. [facility] / | | | [id number] / [id number] / [id number] / | | | | | + + + + + | Procedure Note | + + | Kalyan Arias MD - 10/17/2010 9:21 AM [facility] [id number] | | 01/ [id number] [facility] | | [id number] Date: 10/16/2010 Attending Surgeon: Kalyan | | Ortiz Arias M.D. Retail Greeter(s): Raymond Valdes M.D. Preoperative | | Diagnosis(es):1. [...] who is almost 3 years out from [facility] total hip arthroplasty. She had a | [...] presented as an ED transfer to [facility] approximately 3 | | days priorto the [...] aerobic cultures and blood culture bottles per [facility] biopsy protocol. The fascia | | was [...] | will receivemultimodal DVT prophylaxis. Kalyan Arias M.D.[facility] / [id number] / [id number] | | / [id number] / T: 10/16/2010 | |minimally symptomatic for her, and she did well with the arthroplasty | |itself. She presented as an ED transfer to [facility] approximately 3 days prior | |to the [...] | | | |Kalyan Arias M.D. | |[facility] / | |[id number] / [id number] / 35000 / | | | | | | [...] [facility]N | [address] | [place], [place] | | | [place] EPPS | [facility] | [address] | | | TESTS | | | [...] [facility] DE[facility] | [address] | [place] [address] | | | PATHOLOGY | [address] [...] + + + + | PRODUCT | [id number] | | [facility] | | | UNIT [...] + + + + | BLOOD | [id number] | | [facility] | | | PRODUCT [...] DEPARTMENT OF | [address] | [place] [address] | | | PATHOLOGY | [address] [...] + + + + | PRODUCT | [id number] | | [facility] | | | UNIT [...] + + + + | BLOOD | 60995 | | [facility] | | | PRODUCT [...] [facility] | [address] | [place] [address] | | | PATHOLOGY | [address] [...] JIMY | [address] | [place], [place] | | | JADA [facility]PS OF [facility] | [address] | [address] | | | TESTS | | | [...] [facility] | [address] | [place], [place] | | | [place] EP[facility] OF [place] | [facility] | [address] | | | TESTS | | | | + + + + + CAPILLARY BLOOD GLUCOSE, POC (10/14/2010 11:02 PM PST) + +---------+ + + + | Component | Value | Ref Range | Performed | Pathologist | | | | | At | Signature | + +---------+ + + + | BLOOD | 142 (H) | 60 - 99 mg/dL | [facility] - | | | GLUCOSE, | | [...] AHN | [address] | [place], [place] | | | SUPRIYA POINT OF CARE | [address] | [address] | | | TESTS | | | [...] [facility] | [address] | [place], [place] | | | THERAPY | [address] | [address] | | + + + + + [...] view image for the detailed interpretation from [employer] results. | CARDIOLOGY | + + + + + + + + | Performing | Address | City/State/Zipcode | Phone Number | | Organization | | | | + + + + + | [facility] | [address] | [place], [place] | | | CARDIOLOGY | [address] | [address] | | + + + + + [...] | + + + + + | [facility] | [address] | [place] [address] | | | LAB-MICRO | | | [...] DEPARTMENT OF | [address] | [place] [address] | | | PATHOLOGY | [address] [...] DEPARTMENT OF | [address] | [place] [address] | | | PATHOLOGY | [address] [...] [facility] | [address] | [place] [address] | | | PATHOLOGY | [address] [...] Lab) | | | | | | [facility] | | | | | | [address] | | | | [address] | [address] | | | | | | [place] [address] | | | | + + + + + + + + | Specimen | + + | | + + + + + + + | Performing | Address | City/State/Zipcode | Phone Number | | Organization | | | | + + + + + | [facility] | [address] | [place] [address] | | | LAB-MICRO | | | [...] + + + | [facility] | [address] | [place] [address] | | | PATHOLOGY | [address] [...] + + + | [facility] DEPARTMENT OF | [address] | [place] [address] | | | PATHOLOGY | [address] [...] [facility] | [address] | [place] [address] | | | PATHOLOGY | [address] [...] + + + | [facility] | [address] | [place] [address] | | | LAB-MICRO | | | [...] + + + | [facility] | [address] | [place] [address] | | | LAB-MICRO | | | [...] +---------+ + + | [facility] DEPARTMENT OF | | | | | [...] +---------+ + + | [facility] DEPARTMENT OF | | | | | [...] [facility] DE[facility] | [address] | [place] [address] | | | PATHOLOGY | [address] [...] [facility] | [address] | [place] [address] | | | PATHOLOGY | [address] [...] DEPARTMENT OF | [address] | [place] [address] | | | PATHOLOGY | [address] [...] + + + | [facility] | [address] | [place] [address] | | | LAB-MICRO | | | [...] [facility] | [address] | [place] [address] | | | PATHOLOGY | [address] [...] DEPARTMENT OF | [address] | [place] [address] | | | PATHOLOGY | [address] [...] DEPARTMENT OF | [address] | [place] [address] | | | PATHOLOGY | [address] [...] [facility] | [address] | [place] [address] | | | PATHOLOGY | [address] [...] effective 10/26/08 | [facility] | | RLB ([address] [facility]) [facility] | REGIONAL | | [place] [address] | LABORATORY | | [place] [address] | | + + + + + + + + | Performing | Address | City/State/Zipcode | Phone Number | | Organization | | | | + + + + + | [facility] | [address] | [place] [address] | | | LABORATORY | | | [...]
--- OUTSIDE RECORDS SUMMARY | ~2020-04-27 | XMS | Encounter Summary ---
Demographics + + + | Address | [address] | | | [place] [address] | + + + | Home Phone [...] Providers + +------+ + | Care Industrial Maintenance Electrician Name | Role | Phone | + [...] | | Surgery -Hand | [facility] | | | | | Surgery [address] | [place] [address] | | | | | [address] | | | | | | Mailcode: [id number] | | | | | | [facility] | | | | | | [place], [place] | | | | | | [address] | | | | | | [phone] | | | +--------+ + + + [...] + + + + | PRODUCT | [id number] | | [facility] | | | UNIT [...] [facility] DEPARTMENT OF | [address] | [place] [address] | | | PATHOLOGY | [address] | | | + + + + + | [facility] DEPARTMENT OF | [address] | [place] [address] | | | PATHOLOGY | [address] [...] + + + + | PRODUCT | [id number] | | [facility] | | | UNIT [...] [facility] DEPARTMENT OF | [address] [facility] | [place] [address] | | | PATHOLOGY | [address] | | | + + + + + | [facility] DEPARTMENT OF | [address] [facility] | [place] [address] | | | PATHOLOGY | [address] [...] + + + + + | [facility] | [address] | [place] [address] | | | PATHOLOGY | [address] | | | + + + + + | [facility] | [address] | [place] [address] | | | PATHOLOGY | [address] | | | + + + + + documented in this encounter Visit Diagnoses Not on filedocumented in this encounter"
--- OUTSIDE RECORDS SUMMARY | ~2020-04-27 | XMS | Encounter Summary ---
Demographics + + + | Address | [address] | | | [place] [address] | + + + | Home Phone [...] Team Providers + +------+ + | Care Tank Terminal Gauger Name | Role | Phone | + +------+ + PCP | Unavailable | + +------+ + Encounter Details +--------+ + + + + | Date | Type | Department | Care Team | Description | +--------+ + + + + | 10/05/ | Hospital | [facility] | Lei [place]wood | | | 2010 | Encounter | MED CTR XRAY [address] | [address] | | | | | [address] | [address] [place] | | | | | [place] [address] | [address] | | | | | [phone] | [phone] | | | | | | | [...] [place] | | | | | | [address] | | | | | | | | +--------+---------+ + + + documented as of this encounter Visit Diagnoses Not on filedocumented in this encounter"
--- OUTSIDE RECORDS SUMMARY | ~2020-04-27 | XMS | Encounter Summary ---
Demographics + + + | Address | [address] | | | [place] [address] | + + + | Home Phone [...] Team Providers + +------+ + | Care Cherry Grower Name | Role | Phone | + +------+ + PCP | Unavailable | + +------+ + Encounter Details +--------+ + + + + | Date | Type | Department | Care Team | Description | +--------+ + + + + | 11/22/ | Results | | Other, Faculty | | | 2003 | Only | | [phone] | | +--------+ + + + + [...] + + + | [facility] | [address] | [place] [address] | | | LAB-MICRO | | | [...] + + + | [facility] | [address] | [place] [address] | | | LAB-MICRO | | | [...] | + + + + + | [facility] | [address] | [place] [address] | | | LAB-MICRO | | | [...] + + | [facility] | [address] | [place] [address] | | | LAB-MICRO | | | [...] + + | [facility] | [address] | [place] [address] | | | LAB-MICRO | | | [...] + + | [facility] | [address] | [place] [address] | | | LAB-MICRO | | | [...] + + + | [facility] | [address] | [place] [address] | | | LAB-MICRO | | | | + + + + + documented in this encounter Visit Diagnoses Not on filedocumented in this encounter"
--- OUTSIDE RECORDS SUMMARY | ~2020-04-27 | XMS | Encounter Summary ---
Demographics + + + | Address | [address] | | | [place] [address] | + + + | Home Phone [...] Team Providers + +------+ + | Care Pre Press Manager Name | Role | Phone | [...] Pavilion | | | | | | [place], [place] | | | | | | [address] | | | | | | [phone] | | | +--------+ + + + [...]
--- OUTSIDE RECORDS SUMMARY | ~2020-04-27 | XMS | Encounter Summary ---
Demographics + + + | Address | [address] | | | [place] [address] | + + + | Home Phone [...] Providers + +------+ + | Care Generation Mechanic Helper Name | Role | Phone | [...] | Pankaj Bergman | Roxann Ayala [facility] | | | | | CT INJ | Roxann Ayala [facility], | | | | | SACROILIAC | [place], [place] | 10th Floor | | | | | JOINT | [address] | [place], [place] | | | | | W/NEEDLE | Phone: | [address] | | | | | PLCMT | [phone] | Phone: | | | | | | Fax: | [phone] | | | | | | [phone] | Fax: | | | | | | | [phone] | +--------+--------+ + + + + Reason [...] | | | | | | | [address] | | | | | | | Phone: | | | | | | | [phone] | | | | | | | Fax: | | | | | | | [phone] | +--------+--------+ + + + + Encounter [...] | | | | Mailcode: [id number] | [place], [place] | | | | | [facility] | [address] | | | | | [place], [place] | [phone] | | | | | [address] | | | | | | [phone] | | | +--------+---------+ + + + [...] SACROILIAC JOINT W/NEEDLE PLCMT (10/12/2009 10:08 AM [facility]) + + + + + + [...] | | | | | | the senior safety support manager. | | | | | | Embedded Developer imaging was | | | | | [...]
--- OUTSIDE RECORDS SUMMARY | ~2020-04-27 | XMS | Encounter Summary ---
Demographics + + + | Address | [address] | | | [place] [address] | + + + | Home Phone [...] Team Providers + +------+ + | Care Logistics Operations Manager Name | Role | Phone [...] as of this encounter Progress Notes Interface, Tester Operator In - 07/14/2006 1:10 AM PDTCLINIC [...] in the system. Dariana Champion M.A. / [id number] / [id number] / [id number] / Watt Tester Operator In - 07/10/2006 1:00 AM PDTCLINIC DATE: [...] insurance at and spoke with [place]. This area representative stated that this prescription had been [...] over the phone. Dariana Champion M.A. / [id number] / [id number] / [id number] / Tdocumented in this encounter Plan of Treatment Not on filedocumented as of this encounter Visit Diagnoses Not on filedocumented in this encounter"
--- OUTSIDE RECORDS SUMMARY | ~2020-04-27 | XMS | Encounter Summary ---
Demographics + + + | Address | [address] | | | [place] [address] | + + + | Home Phone [...] Providers + +------+ + | Care Assistant Center Manager Name | Role | Phone | [...] as of this encounter Progress Notes Interface, Enrollment Advisor In - 06/11/2006 3:03 AM PDTCLINIC DATE: [...] clinic today. It was done in a [place] [facility] on December 08, 2001. There is [...] on an as-needed basis. Vince Krishna M.D. [facility] / [id number] / [id number] / [id number] / cc: Ninfa Guileln M.D. [address] [place] [id number] Kalyan Wu M.D. [facility] Orthopedics and Rehabilitation Lloyd Garcia M.D. [facility] Orthopedics and RehabiliationElectronically signed by Interface, Enrollment Advisor In at 0 06/11/2006 3:03 AM PDTdocumented in this encounter Plan of Treatment Not on filedocumented as of this encounter Visit Diagnoses Not on filedocumented in this encounter"
--- OUTSIDE RECORDS SUMMARY | ~2020-04-27 | XMS | Encounter Summary ---
Demographics + + + | Address | [address] | | | [place] [address] | + + + | Home Phone [...] Providers + +------+ + | Care Instructor Hairspring Name | Role | Phone | [...] | | | [address] | [address] [place], [place] | | | | | Mailcode: [id number] | [address] | | | | | [facility] | | | | | | [place], [place] | | | | | | [address] | | | | | | [phone] | | | +--------+ + + + [...] 10/30/99 | | | | | | [id number] hours. | | | | | | Dictated 11/01/99. | | | | | | FINDINGS: There is a | | | | | | shallow right rotatory | | | | | | lumbar convexity. | | | | | | [id number] S1 flexion | | | | | [...]
--- OUTSIDE RECORDS SUMMARY | ~2020-04-27 | XMS | Encounter Summary ---
Demographics + + + | Address | [address] | | | [place] [address] | + + + | Home Phone [...] Team Providers + +------+ + | Care Wharfinger Chief Name | Role | Phone | [...] Pavilion | | | | | | [place], [place] | | | | | | [address] | | | | | | [phone] | | | +--------+ + + + [...] | + + + + + | [facility] | [address] | [place] [address] | | | LABORATORY | | | [...] [facility] DEPARTMENT OF | [address] [facility] | [place] [address] | | | PATHOLOGY | [address] | | | + + + + + | [facility] DEPARTMENT OF | [address] [facility] | [place] [address] | | | PATHOLOGY | [address] [...] | [facility] | [address] | [place] [address] | | | PATHOLOGY | [address] | | | + + + + + | [facility] | [facility] [address] | [place] [address] | | | PATHOLOGY | [address] [...] DEPARTMENT OF | [address] | [place] [address] | | | PATHOLOGY | [address] | | | + + + + + | [facility] | [address] | [place] [address] | | | PATHOLOGY | [address] [...] Marybeth, | | | | | | [place], | | | | | | attime [...] | + + + + + | [facility] | [address] | [place] [address] | | | LABORATORY | | | [...] DEPARTMENT OF | [address] | [place] [address] | | | PATHOLOGY | [address] | | | + + + + + | [facility] DEPARTMENT OF | [address] | [place] [address] | | | PATHOLOGY | [address] [...] [facility] DEPARTMENT OF | [address] [facility] | [place] [address] | | | PATHOLOGY | [address] | | | + + + + + | [facility] DEPARTMENT OF | [address] [facility] | [place] [address] | | | PATHOLOGY | [address] [...] [facility] DEPARTMENT OF | [address] [facility] | [place] [address] | | | PATHOLOGY | [address] | | | + + + + + | [facility] DEPARTMENT OF | [address] [facility] | [place] [address] | | | PATHOLOGY | [address] [...] | + + + + + | [facility] | [address] | [place] [address] | | | LABORATORY | | | [...] | + + + + + | [facility] | [address] | [place] [address] | | | PATHOLOGY | [address] | | | + + + + + | [facility] | [address] [address] | [place] [address] | | | PATHOLOGY | [address] [...] | + + + + + | [facility] DEPARTMENT OF | [address] | [place] [address] | | | PATHOLOGY | [address] | | | + + + + + | [facility] DEPARTMENT OF | [address] | [place] [address] | | | PATHOLOGY | [address] [...] | + + + + + | [facility] | [address] [facility] | [place] [address] | | | PATHOLOGY | [address] | | | + + + + + | [facility] DEPARTMENT OF | [facility] | [place] [address] | | | PATHOLOGY | [address] [...] + + + | [facility] | [address] | [place] [address] | | | LABORATORY | | | [...] | + + + + + | [facility] | [address] [facility] | [place] [address] | | | PATHOLOGY | [address] | | | + + + + + | [facility] DEPARTMENT OF | [address] [facility] | [place] [address] | | | PATHOLOGY | [address] [...] + + | [facility] DEPARTMENT OF | [address] | [place] [address] | | | PATHOLOGY | [address] | | | + + + + + | [facility] | [address] | [place] [address] | | | PATHOLOGY | [address] [...] PRIMARY | | | | | | DENTURE CONTOUR WIRE SPECIALIST: Joao Wilde | | | | | [...] + + + | [facility] | [address] | [place] [address] | | | LABORATORY | | | [...] DEPARTMENT OF | [address] | [place] [address] | | | PATHOLOGY | [address] | | | + + + + + | [place] DEPARTMENT OF | [address] | [place] [address] | | | PATHOLOGY | [address] [...] (L) | 7.4 - 10.4 fL | [facility] | | [...] [facility] DEPARTMENT OF | [address] [facility] | [place] [address] | | | PATHOLOGY | [address] | | | + + + + + | [facility] DEPARTMENT OF | [address] [facility] | [place] [address] | | | PATHOLOGY | [address] [...] DEPARTMENT OF | [address] | [place] [address] | | | PATHOLOGY | [address] | | | + + + + + | [place] DEPARTMENT OF | [address] | [place] [address] | | | PATHOLOGY | [address] [...] | + + + + + | [facility] | [facility] | [place] [address] | | | PATHOLOGY | [address] | | | + + + + + | [facility] DEPARTMENT OF | [address] [facility] | [place] [address] | | | PATHOLOGY | [address] [...] | + + + + + | [facility] | [address] [facility] | [place] [address] | | | PATHOLOGY | [address] | | | + + + + + | [facility] | [address] [facility] | [place] [address] | | | PATHOLOGY | [address] [...] DEPARTMENT OF | [address] | [place] [address] | | | PATHOLOGY | [address] | | | + + + + + | [facility] DEPARTMENT OF | [address] | [place] [address] | | | PATHOLOGY | [address] [...] | [facility] | [address] | [place] [address] | | | PATHOLOGY | [address] | | | + + + + + | [facility] | [address] | [place] [address] | | | PATHOLOGY | [address] [...] + + + | [facility] | [address] | [place] [address] | | | LABORATORY | | | | + + + + + documented in this encounter Visit Diagnoses Not on filedocumented in this encounter"
--- OUTSIDE RECORDS SUMMARY | ~2020-04-27 | XMS | Encounter Summary ---
Demographics + + + | Address | [address] | | | [place] [address] | + + + | Home Phone [...] Team Providers + +------+ + | Care Freelance Displayer Name | Role | Phone | + [...] + + | 11/25/ | Hospital | [facility] | Rustam Schmid MD | | | 2017 | Encounter | MED CTR SURGICAL | [address] [facility] | | | | | [address] | [place] | | | | | [place] [address] | [address] | | | | | [phone] | [phone] | | | | | | | [...] upon return of cul ture results from [facility]. Stent may be removed by her cessation systems outreach specialist on Saturday or SaturdayDecember 03. AttachmentsThe following attachments cannot be sent through Care Everywhere.DIET, DISCHARGE INSTRUCTIONS FOR EATING A LOW-SALT (SLOVENIAN)KIDNEY STONES,PREVENTING (SLOVENIAN)documented in this encounter Medications at Time of [...] at 0545 via ground ambul ance from [facility] in [place]. C/o rt back/flank pain. Dry heaves noted. [...] Schmid MD - 11/25/2016 6:52 AM PST [facility] --[facility] ADMIT HISTORY AND PHYSICAL Primary Care [...] is a 56 y.o. female, transferred from [place] emergency room with s ymptomatic right ureterolithiasis. [...] Signed by: Rustam Schmid MD, 11/25/2016 7:[address] [facility] documented in this enc ounter Nursing [...] MD - 2016 11:00 AM [facility] Pt. Name/Age/: Shelyb Galdamez 56 y.o. 1960 Med. Record Number: [id number] Date of Operation/Procedure: 11/25/2016 Preoperative Diagnosis: right ureteral stones [N20.1] Post-Op Diagnosis Codes: * Right ureteral stone [N20.1] Postoperative Diagnosis: Same Surgeon: Rustam Schmid MD Rollway Worker(s): None Anesthesia Provider(s): Anesthesiologist: Helio Barkley MD Operations Clerk: Rain Edouard Anesthesia Type: General Procedure(s): RIGHT URETEROSCOPIC LASER LITHOTRIPSY PLACEMENT RIGHT URETERAL STENT PLACEMENT Operative Indications: Shelby Galdamez is a 56 y.o. year old female transferred from [facility] several hours ago, with CT demonstrating [...] the usual sterile fashion . A 23 East Timorese cystoscope was introduced to the bladder with [...] were removed. A 25 cm x 14 East [place]orese ureteral access sheath was threaded over the [...] back over the safety wire. A 6 East Timorese by 26 cm diana ble-J stent was [...] Signed by: Rustam Schmid MD, 11/25/2016 11:01 [facility] documented in this enc ounter Plan [...] [place] | | | | | | [address] | | | | | | | [...] MD | | | | | | ([id number]) on 11/25/2016 | | | | | [...]
--- OUTSIDE RECORDS SUMMARY | ~2020-04-27 | XMS | Encounter Summary ---
Demographics + + + | Address | [address] | | | [place] [address] | + + + | Home Phone [...] Providers + +------+ + | Care Junior Analyst Name | Role | Phone | [...] | | | | Mailcode: [id number] | [place], [place] | | | | | [facility] | [address] | | | | | [place], [place] | [phone] | | | | | [address] | | | | | | [phone] | | | +--------+ + + + [...]
--- OUTSIDE RECORDS SUMMARY | ~2020-04-27 | XMS | Encounter Summary ---
Demographics + + + | Address | [address] | | | [place] [address] | + + + | Home Phone [...] Team Providers + +------+ + | Care Volumetric Weigher Name | Role | Phone | + [...] | | | Surgery [address] | [place], [place] | | | | | [address] | [address] | | | | | Mailcode: [id number] | [phone] | | | | | [facility] | | | | | | [place], [place] | | | | | | [address] | | | | | | [phone] | | | +--------+ + + + [...] + + + | [facility] | [address] | [place] [address] | | | LABORATORY | | | [...] [facility] | [address] | [place] [address] | | | PATHOLOGY | [address] | | | + + + + + | [facility] | [address] | [place] [address] | | | PATHOLOGY | [address] [...] DEPARTMENT OF | [address] | [place] [address] | | | PATHOLOGY | [address] | | | + + + + + | [facility] DEPARTMENT OF | [address] | [place] [address] | | | PATHOLOGY | [address] [...] [facility] DEPARTMENT OF | [address] | [place] [address] | | | PATHOLOGY | [address] | | | + + + + + | [facility] DEPARTMENT OF | [address] | [place] [address] | | | PATHOLOGY | [address] | | | + + + + + documented in this encounter Visit Diagnoses Not on filedocumented in this encounter
--- OUTSIDE RECORDS SUMMARY | ~2020-04-27 | XMS | Encounter Summary ---
Demographics + + + | Address | [address] | | | [place] [address] | + + + | Home Phone [...] Team Providers + +------+ + | Care Full Roll Inspector Name | Role | Phone | [...] Procedures | Pankaj Bergman | Roxann Ayala [facility] | | | | | CT INJ | Roxann Ayala [facility], | | | | | SACROILIAC | [place], [place] | 10th Floor | | | | | JOINT | [address] | [place], [place] | | | | | W/NEEDLE | Phone: | [phone] | | | | | PLCMT | [phone] | Phone: | | | | | | Fax: | [phone] | | | | | | [phone] | Fax: | | | | | | | [phone] | +--------+--------+ + + + + Encounter [...] | | | | | Roxann Ayala [facility] | | | | | | [address] | | | | | | [place], [place] | | | | | | [address] | | | | | | [phone] | | | +--------+ + + + [...] | | | | | | the legal support specialist. | | | | | | Plating Tank Operator imaging was | | | | | [...]
--- OUTSIDE RECORDS SUMMARY | ~2020-04-27 | XMS | Encounter Summary ---
Demographics + + + | Address | [address] | | | [place] [address] | + + + | Home Phone | | + + + | Preferred Language | Unknown | + + + | Marital Status | | + + + | Lutheran Affiliation | [id number] | + + + | Race | Unknown | + + + | Ethnic Group | Unknown | + + + Author + + + | Author | [facility] | | | and [place] | + + + | Organization | [facility] | | [...] Providers + +------+ + | Care Health Technician Name | Role | Phone | [...] + + | 11/25/ | Office | [facility] | Xiang Sepulveda, | Chronic pain | | 2019 | Visit | [facility] | DO [address] | syndrome (Primary | | | | DOLOROLOGY [address] | [place] | Dx); Other chronic | | | | [address] | [address] | pain; DDD | | | | [place], [place] | | (degenerative disc | | | | [address] | | disease), lumbar; | | | | [phone] | | Decreased range of | | [...] but not limited to phys ical therapy, transitional care liaison, acupuncture, massage therapy, and nutritional [...] Author Status Filed Medication Agreement Antonella Sprague, Drywall Stripper Active 11/25/2019 10:52 AM Pain Contract- Dr. Sepulveda 11/25/2019 PEG Pain screening tool (Pain, enjoyment, general activity) Total score: (Printable questionnaires in Salvadorean ) Interpretation of Total Score: PEG scores are used to track changes over time. It should de crease after therapy has begun. Last 4 PEG Scores: No flowsheet data found. Opioid Risk Tool (ORT): Total Score Pulse: 104 Resp: 20 BP: 184/69 SpO2: 97 % (From Chronic Pain tab; printable questionnaires in Salvadorean) Interpretation of Total Score: 0 to 3 [...] ; Surg andrés: Rustam Schmid MD; Location: [facility] MAIN [place] Review of Systems Constitutional: [...] reviewed, listed controlled substances are consistent with [facility] prescriptions and patient reported use. [...] imited to physical therapy, massage therapy, acupuncture, transitional care liaison, along with jabari mmended psychological counseling, either privately, or in group sessions offered by private care individuals, community services, or anabaptist organizations. Appropriate referrals were made at patient [...] weeks. This document has been created using [employer] Voice Recognition software and [employer]. The entry has been reviewed for content and accuracy, but there may still exist "sound alike" buckle and button maker word errors and/or unintended additions and deletions. [...] [place] | | | | | | [id number] | | | | | | | [...]
--- OUTSIDE RECORDS SUMMARY | ~2020-04-27 | XMS | Encounter Summary ---
Demographics + + + | Address | [address] | | | [place] [address] | + + + | Home Phone [...] + +------+ + | Care Assisted Living Nursing Director Name | Role | Phone | [...] Pavilion | | | | | | [place], [place] | | | | | | [address] | | | | | | [phone] | | | +--------+ + + + [...] + + | [facility] DEPARTMENT OF | | | | | RADIOLOGY | | | | + +---------+ + + documented in this encounter Visit Diagnoses Not on filedocumented in this encounter"
--- OUTSIDE RECORDS SUMMARY | ~2020-04-27 | XMS | Encounter Summary ---
Demographics + + + | Address | [address] | | | [place] [address] | + + + | Home Phone [...] Team Providers + +------+ + | Care Appointment Clerk Name | Role | Phone | [...] | | | | | | [place], [place] | | | | | | [address] | | | | | | [phone] | | | +--------+ + + + [...] | | + +---------+ + + | [facility] DEPARTMENT OF | | [...] | | + +---------+ + + | [facility] DEPARTMENT OF | | [...] ON | | | | | | [facility] [id number], | | | | | | DONE [...]
--- OUTSIDE RECORDS SUMMARY | ~2020-04-27 | XMS | Encounter Summary ---
Demographics + + + | Address | [address] | | | [place] [address] | + + + | Home Phone [...] Providers + +------+ + | Care Cold Patcher Name | Role | Phone | + [...] | | | | [facility] | [address] | | | | | [place], [place] | [phone] | | | | | [address] | | | | | | [phone] | | | +--------+ + + + [...]
--- OUTSIDE RECORDS SUMMARY | ~2020-04-27 | XMS | Encounter Summary ---
Demographics + + + | Address | [address] | | | [place] [address] | + + + | Home Phone [...] Team Providers + +------+ + | Care Deboner Name | Role | Phone | + +------+ + | Marta Jenkins STONER HAND | PCP | | + +------+ + [...] | Jamie Mailcode: [id number] [place], | | | | | [place], [place] | [place] [address] | | | | | [address] | | | | | | [phone] | | | +--------+ + + + [...]
--- OUTSIDE RECORDS SUMMARY | ~2020-04-27 | XMS | Encounter Summary ---
Demographics + + + | Address | [address] | | | [place] [address] | + + + | Home Phone [...] Team Providers + +------+ + | Care Pelt Salter Name | Role | Phone | + [...] | | | | | | [place], [place] | | | | | | [address] | | | | | | [phone] | | | +--------+ + + + [...] | | | | | FINDINGS: The router setter | | | | | | radiographs [...] | | | | | FINDINGS: The router setter | | | | | | radiographs [...]
--- OUTSIDE RECORDS SUMMARY | ~2020-04-27 | XMS | Encounter Summary ---
Demographics + + + | Address | [address] | | | [place] [address] | + + + | Home Phone [...] Team Providers + +------+ + | Care Casing Tester Name | Role | Phone | [...] + + | 11/25/ | Hospital | [facility] | Rustam Schmdi MD | | | 2017 | Encounter | MED CTR SURGICAL | [address] [facility] | | | | | [address] | [place] | | | | | [place] [address] | [address] | | | | | [phone] | | | | | | | [...] return of cul ture results from [facility]. Stent may be removed by her sand wheeler on Saturday or SaturdayDecember 03. AttachmentsThe following attachments cannot be sent through Care Everywhere.DIET, DISCHARGE INSTRUCTIONS FOR EATING A LOW-SALT (CROATIAN)KIDNEY STONES,PREVENTING (CROATIAN)documented in this encounter Medications at Time of [...] 0545 via ground ambul ance from [facility] in [place]. C/o rt back/flank pain. Dry heaves noted. [...] Schmid MD - 11/25/2016 6:52 AM PST [facility] ADMIT HISTORY AND PHYSICAL Primary Care Physician: [...] is a 56 y.o. female, transferred from [place] emergency room with s ymptomatic right ureterolithiasis. [...] Signed by: Rustam Schmid MD, [facility]2016 [facility] documented in this enc ounter Nursing [...] Schmid MD - 2016 11:00 AM [facility] Pt. Name/Age/: Shelby Galdamez 56 y.o. 1960 Med. Record Number: [id number] Date of Operation/Procedure: 11/25/2016 Preoperative Diagnosis: right ureteral stones [N20.1] Post-Op Diagnosis Codes: * Right ureteral stone [N20.1] Postoperative Diagnosis: Same Surgeon: Rustam Schmid MD Receiver Dispatcher(s): None Anesthesia Provider(s): Anesthesiologist: Helio Barkley MD Baton Teacher: Rain Edouard Anesthesia Type: General Procedure(s): RIGHT URETEROSCOPIC LASER LITHOTRIPSY PLACEMENT RIGHT URETERAL STENT PLACEMENT Operative Indications: Shelby Galdamez is a 56 y.o. year old female transferred from [facility] several hours ago, with CT demonstrating [...] the usual sterile fashion . A 23 Tanzanian cystoscope was introduced to the bladder with [...] were removed. A 25 cm x 14 Tanzanian ureteral access sheath was threaded over the [...] back over the safety wire. A 6 Tanzanian by 26 cm diana ble-J stent was [...] Signed by: Rustam Schmid MD, 11/25/2016 11:01 [facility] documented in this enc ounter Plan of Treatment +--------+---------+ + + + | Date | Type | Specialty | Care Team | Description | +--------+---------+ + + + | 05/23/ | Office | Pain Medicine | Xiang Sepulveda, | | | 2019 | Visit | | DO [address] | | | | | | [place] | | | | | | [address] | | | | | | | [...] MD | | | | | | ([id number]) on 11/25/2016 | | | | | [...]
--- OUTSIDE RECORDS SUMMARY | ~2020-04-27 | XMS | Encounter Summary ---
Demographics + + + | Address | [address] | | | [place] [address] | + + + | Home Phone [...] Team Providers + +------+ + | Care Invoice Clerk Name | Role | Phone | [...] | | | | Mailcode: [id number] | [place], [place] | | | | | [facility] | [address] | | | | | [place], [place] | [phone] | | | | | [address] | | | | | | [phone] | | | +--------+ + + + [...]
--- OUTSIDE RECORDS SUMMARY | ~2020-04-27 | XMS | Encounter Summary ---
Demographics + + + | Address | [address] | | | [place] [address] | + + + | Home Phone [...] Team Providers + +------+ + | Care Bass Mechanism Maker Name | Role | Phone | [...] + | 09/26/ | Telephone | [facility] | Ladarius Martínez PA | Other | | 2016 | | SLEEP DISORDER [address] | [address] | | | | | [address] [place] | [place], [place] | | | | | [place] [address] | [address] | | | | | [phone] | | | +--------+ + + + [...] Miscellaneous Notes Telephone Encounter - Maegan Munoz Apprentice Plumber - 09/27/2016 11:33 AM PSTPatient ca lled back appointment has been scheduled. elephone Encounter - Maegan Munoz Apprentice Plumber - 09/26/2016 1:12 PM PSTCalled left message [...] [place] | | | | | | [id number] | | | | | | | | +--------+---------+ + + + documented as of this encounter Visit Diagnoses Not on filedocumented in this encounter"
--- OUTSIDE RECORDS SUMMARY | ~2020-04-27 | XMS | Encounter Summary ---
Demographics + + + | Address | [address] | | | [place] [address] | + + + | Home Phone [...] Team Providers + +------+ + | Care Adobe Architect Name | Role | Phone | + +------+ + | Marta Jenkins LEARNING DEVELOPMENT SPECIALIST | PCP | | + +------+ [...] | | | | Mailcode: [id number] | [place], [place] | | | | | [facility] | [address] | | | | | [place], [place] | [phone] | | | | | [address] | | | | | | [phone] | | | +--------+ + + + [...]
--- OUTSIDE RECORDS SUMMARY | ~2020-04-27 | XMS | Encounter Summary ---
Demographics + + + | Address | [address] | | | [place] [address] | + + + | Home Phone [...] Providers + +------+ + | Care Plastic Surgeon Name | Role | Phone | [...] + | [facility] | [address] | [place] [address] | | | PATHOLOGY | [address] | | | + + + + + | [facility] | [address] [place] [address] [address] | [place] [address] | | | PATHOLOGY | [address] [...] by | | | | | | [facility] | | | | | | [facility]. | | | | + + + + + + + + | Specimen | + + | | + + + + + + + | Performing | Address | City/State/Zipcode | Phone Number | | Organization | | | | + + + + + | [facility] | [address] | [place] [address] | | | LABORATORY | | | [...] + + + + + | [facility] | [address] | [place] [address] | | | PATHOLOGY | [address] | | | + + + + + | [facility] | [facility] [address] | [place] [address] | | | PATHOLOGY | [address] [...] + | [facility] | [address] | [place] [address] | | | PATHOLOGY | [address] | | | + + + + + | [facility] | [address] [place] [address] [address] | [place] [address] | | | PATHOLOGY | [address] [...] by | | | | | | [facility] | | | | | | [facility]. | | | | + + + + + + + + | Specimen | + + | | + + + + + + + | Performing | Address | City/State/Zipcode | Phone Number | | Organization | | | | + + + + + | [facility] | [address] | [place] [address] | | | LABORATORY | | | [...] + + | [facility] DEPARTMENT | [address] | [place] [address] | | | PATHOLOGY | [address] | | | + + + + + | [facility] DEPARTMENT OF | [address] | [place] [address] | | | PATHOLOGY | [address] | | | + + + + + documented in this encounter Visit Diagnoses Not on filedocumented in this encounter"
--- OUTSIDE RECORDS SUMMARY | ~2020-04-27 | XMS | Encounter Summary ---
Demographics + + + | Address | [address] | | | [place] [address] | + + + | Home Phone [...] Providers + +------+ + | Care Tobacco Stemmer Machine Name | Role | Phone | [...] as of this encounter Progress Notes Interface, Anvil Worker In - 08/28/2006 3:05 AM PSTCLINIC DATE: [...] clinical evaluation. Benson Cooper M.D. / SALEEM [id number] / [id number] / [id number] / cc: Lloyd Garcia M.D. documented in this encounter Plan of Treatment Not on filedocumented as of this encounter Visit Diagnoses Not on filedocumented in this encounter"
--- OUTSIDE RECORDS SUMMARY | ~2020-04-27 | XMS | Encounter Summary ---
Demographics + + + | Address | [address] | | | [place] [address] | + + + | Home Phone [...] Team Providers + +------+ + | Care Barista Name | Role | Phone | + [...] + + + + | [facility] DEPARTMENT | [address] | [place] [address] | | | PATHOLOGY | [address] | | | + + + + + | [facility] DEPARTMENT OF | [address] | [place] [address] | | | PATHOLOGY | [address] [...] DEPARTMENT OF | [address] | [place] [address] | | | PATHOLOGY | [address] | | | + + + + + | [place] DEPARTMENT OF | [address] | [place] [address] | | | PATHOLOGY | [address] [...] + + | [facility] | [address] | [place] [address] | | | PATHOLOGY | [address] | | | + + + + + | [facility] DEPARTMENT OF | [address] | [place] [address] | | | PATHOLOGY | [address] [...] [facility] | [address] | [place] [address] | | | PATHOLOGY | [address] | | | + + + + + | [facility] | [address] | [place] [address] | | | PATHOLOGY | [address] | | | + + + + + documented in this encounter Visit Diagnoses Not on filedocumented in this encounter"
--- OUTSIDE RECORDS SUMMARY | ~2020-04-27 | XMS | Encounter Summary ---
Demographics + + + | Address | [address] | | | [place] [address] | + + + | Home Phone [...] as of this encounter Discharge Summaries Interface, Financial Solutions Advisor In 02/27/2006 3:05 AM PDTAdmission Date: 09/13/2003 [...] readmitted. DISPOSITION: She [facility] a [facility]iary facility. MEDICATIONS: 1. Docusate #80. 2. Oxycodone #80. 3. Indomethacin 25 mg, p.o. t.i.d. for six weeks. FOLLOWUP: She will see Dr. Garcia in two weeks. She is to continue wearing her abduction brace. If she has any changes in her wound she is to notify our clinic as soon as possible. Benson Boone M.D. Lloyd Garcia M.D. RT:[id number] signed by Interface, Financial Solutions Advisor In at 02/27/2006 3:05 AM [facility]ed in this encounter Plan of Treatment Not on filedocumented as of this encounter Visit Diagnoses Not on filedocumented in this encounter"
--- OUTSIDE RECORDS SUMMARY | ~2020-04-27 | XMS | Encounter Summary ---
Demographics + + + | Address | [address] | | | [place] [address] | + + + | Home Phone [...] Providers + +------+ + | Care Farm Supervisor Name | Role | Phone | + +------+ + | Travis Mcginnis MD | PCP | | + +------+ + Encounter Details +--------+ + + + + | Date | Type | Department | Care Team | Description | +--------+ + + + + | 08/03/ | Hospital | Diagnostic Imaging | | | | 2009 | Encounter | Services at [facility] | | | | | | [address] | | | | | | [address]ox[address] Ayala Luigi | | | | | | [facility] | | | | | | [place], [place] | | | | | | [address] | | | | | | [phone] | | | +--------+ + + + [...] + + + +---------+ + + | Gabbs-3 Fatty | Take by mouth. | | [...] of | | | | | | [id number]/superior | | | | | | corner, [...]
--- OUTSIDE RECORDS SUMMARY | ~2020-04-27 | XMS | Encounter Summary ---
Demographics + + + | Address | [address] | | | [place] [address] | + + + | Home Phone [...] Team Providers + +------+ + | Care Nursing Informatics Clinical Analyst Name | Role | Phone | [...] | | | | | | [place], [place] | | | | | | [address] | | | | | | [phone] | | | +--------+ + + + [...]
--- OUTSIDE RECORDS SUMMARY | ~2020-04-27 | XMS | Encounter Summary ---
Demographics + + + | Address | [address] | | | [place] [address] | + + + | Home Phone [...] Team Providers + +------+ + | Care Programming Intern Name | Role | Phone | [...] [address] | | | | | | [address] [place] [address] | | | | | | [address] | | | | | | [place], [place] | | | | | | [address] | | | | | | [phone] | | | +--------+ + + + [...]
--- OUTSIDE RECORDS SUMMARY | ~2020-04-27 | XMS | Encounter Summary ---
Demographics + + + | Address | [address] | | | [place] [address] | + + + | Home Phone [...] Providers + +------+ + | Care Junior Electrical Engineer Name | Role | Phone | [...] + + | 05/29/ | Office | [facility] | Xiang Sepulveda, | Chronic pain | | 2019 | Visit | [facility] | DO [address] | syndrome (Primary | | | | [address] | [place], [place] | Dx); Radiculopathy | | | | [address] | [address] | of lumbar region; | | | | [place], [place] | | DDD (degenerative | | | | [address] | | disc disease), | | | | [phone] | | lumbar; Facet | | | [...] Service: (none) Author Type: Physician Filed: 05/07/19 1130 Encounter Date: 05/07/2019 Status: Addendum Bladder Trimmer: Xiang Sepulveda DO (Physician) Related Notes: Original Note by Xiang Sepulveda DO (Physician) filed at 05/07/19 1120 Patient returns for medication review and adjustment [...] to physical therapy, mass age therapy, acupuncture, health care administrator, along with recommended psychological counseling , either privately, or in group sessions offered by private care individuals, community serv ices, or adventist organizations. Appropriate referrals were made [...] Will return to office in 4 weeks, [facility] was consulted and appears appropriate, [...] are noted in men and women. Ma ma men will suffer erectile dysfunction with these [...] [place] | | | | | | [address] | | | | | | | [...]
--- OUTSIDE RECORDS SUMMARY | ~2020-04-27 | XMS | Encounter Summary ---
Demographics + + + | Address | [address] | | | [place] [address] | + + + | Home Phone [...] Team Providers + +------+ + | Care Dermatological Surgeon Name | Role | Phone | [...] Pavilion | | | | | | [place], [place] | | | | | | [address] | | | | | | [phone] | | | +--------+ + + + [...] | | | | | | obtained. Solid Tire Finisher AP and | | | | | [...] FINDINGS: | | | | | | Solid Tire Finisher images of the | | | | [...] | | | | | | obtained. Solid Tire Finisher AP and | | | | | [...] FINDINGS: | | | | | | Solid Tire Finisher images of the | | | | [...]
--- OUTSIDE RECORDS SUMMARY | ~2020-04-27 | XMS | Encounter Summary ---
Demographics + + + | Address | [address] | | | [place] [...] Providers + +------+ + | Care Studio Engineer Name | Role | Phone | [...] Pavilion | | | | | | [place], [place] | | | | | | [address] | | | | | | [phone] | | | +--------+ + + + [...]
--- OUTSIDE RECORDS SUMMARY | ~2020-04-27 | XMS | Encounter Summary ---
Demographics + + + | Address | [address] | | | [place] [address] | + + + | Home Phone [...] Providers + +------+ + | Care Press Writer Name | Role | Phone | + +------+ + PCP | Unavailable | + +------+ + Encounter Details +--------+ + + + + | Date | Type | Department | Care Team | Description | +--------+ + + + + | 05/07/ | Hospital | [facility] | Helio Ahn | | | 2001 | Encounter | MED CTR SLEEP | MD Candie [address] | | | | | CENTER [address] | [address] | | | | | [place] | [place] [address] | | | | | [address] | [phone] | | | | | [phone] | | | +--------+ + + + [...] [place] | | | | | | [address] | | | | | | | | +--------+---------+ + + + documented as of this encounter Visit Diagnoses Not on filedocumented in this encounter"
--- OUTSIDE RECORDS SUMMARY | ~2020-04-27 | XMS | Encounter Summary ---
Demographics + + + | Address | [address] | | | [place] [address] | + + + | Home Phone [...] Providers + +------+ + | Care Net Finisher Name | Role | Phone | [...] as of this encounter Progress Notes Interface, University Administrative Assistant In - 07/22/2006 3:18 AM PDTCLINIC DATE: [...] that. Jason Castano M.A. TAYE / SALEEM [id number] / [id number] / [id number] / Tdocumented in this encounter Plan of Treatment Not on filedocumented as of this encounter Visit Diagnoses Not on filedocumented in this encounter"
--- OUTSIDE RECORDS SUMMARY | ~2020-04-27 | XMS | Encounter Summary ---
Demographics + + + | Address | [address] | | | [place] [address] | + + + | Home Phone [...] Providers + +------+ + | Care Human Machine Interface Engineer Name | Role | Phone | [...] | | | at P[facility]aj L[facility] | [facility] | | | | | [address] | [place] [address] | | | | | [address] | | | | | | [place] Alfredo, [address] [place] [address] | | | | | | [place], [place] | | | | | | [address] | | | | | | [phone] | | | +--------+ + + + [...] view image for the detailed interpretation from [facility] results. | CARDIOLOGY | | | | + + + + + + + + | Performing | Address | City/State/Zipcode | Phone Number | | Organization | | | | + + + + + | [facility] | [address] | [place], [place] | | | CARDIOLOGY | [address] | [address] | | + + + + + | [facility] | [address] | [place], [place] | | | CARDIOLOGY | [address] | [address] | | + + + + + documented in this encounter Visit Diagnoses + + | Diagnosis | + + | Other specified pre-operative examination | + + documented in this encounter
--- OUTSIDE RECORDS SUMMARY | ~2020-04-27 | XMS | Encounter Summary ---
Demographics + + + | Address | [address] | | | [place] [address] | + + + | Home Phone [...] Team Providers + +------+ + | Care Upstairs Maid Name | Role | Phone | + [...] as of this encounter Progress Notes Interface, Extrusion Die Corrector In - 04/15/2006 1:11 AM PDTCLINIC DATE: [...] age and her obesity. Lloyd Garcia M.D. Relief Operator of Orthopedics and Rehabilitation / [id number] / [id number] / [id number] / cc: Rinaldi M.D. [address], [place] [id number] signed by Interface, Extrusion Die Corrector In at 04/15/2006 1:1 1 AM PDTInterface, Extrusion Die Corrector In - 04/15/2006 1:11 AM PDTCLINIC DATE: [...] her injection. MD Lloyd Merritt M.D. / [id number] / [id number] / [id number] / Tdocumented in this encounter Plan of Treatment Not on filedocumented as of this encounter Visit Diagnoses Not on filedocumented in this encounter"
--- OUTSIDE RECORDS SUMMARY | ~2020-04-27 | XMS | Encounter Summary ---
Demographics + + + | Address | [address] | | | [place] [address] | + + + | Home Phone [...] Team Providers + +------+ + | Care Life Care Planner Name | Role | Phone | [...] Pavilion | | | | | | [place], [place] | | | | | | [address] | | | | | | [phone] | | | +--------+ + + + [...] | | | | | FINDINGS: The needle maker | | | | | | radiographs [...] | | | | | FINDINGS: The needle maker | | | | | | radiographs [...]
--- OUTSIDE RECORDS SUMMARY | ~2020-04-27 | XMS | Encounter Summary ---
Demographics + + + | Address | [address] | | | [place] [address] | + + + | Home Phone [...] Providers + +------+ + | Care Gas Technician Name | Role | Phone | [...] | | | | Mailcode: [id number] | [place], [place] | | | | | [facility] | [address] | | | | | [place], [place] | [phone] | | | | | [address] | | | | | | [phone] | | | +--------+ + + + [...]
--- OUTSIDE RECORDS SUMMARY | ~2020-04-27 | XMS | Encounter Summary ---
Demographics + + + | Address | [address] | | | [place] [address] | + + + | Home Phone [...] Team Providers + +------+ + | Care Trace Clerk Name | Role | Phone | [...] | | Surgery -Hand | [address] [facility] | | | | | Surgery [address] | [place] [address] | | | | | [address] | | | | | | Mailcode: [id number] | | | | | | [facility] | | | | | | [place], [place] | | | | | | [address] | | | | | | [phone] | | | +--------+ + + + [...] + + + + | PRODUCT | [id number] | | [facility] | | | UNIT [...] | + + + + + | [facility] DEPARTMENT OF | [address] | [place] [address] | | | PATHOLOGY | [address] | | | + + + + + | [facility] DEPARTMENT OF | [address] | [place] [address] | | | PATHOLOGY | [address] [...] + + + + | PRODUCT | [id number] | | [facility] | | | UNIT [...] | + + + + + | [facility] DEPARTMENT OF | [address] [facility] | [place] [address] | | | PATHOLOGY | [address] | | | + + + + + | [facility] DEPARTMENT OF | [address] [facility] | [place] [address] | | | PATHOLOGY | [address] [...] | [facility] | [address] | [place] [address] | | | PATHOLOGY | [address] | | | + + + + + | [facility] | [address] | [place] [address] | | | PATHOLOGY | [address] | | | + + + + + documented in this encounter Visit Diagnoses Not on filedocumented in this encounter"
--- OUTSIDE RECORDS SUMMARY | ~2020-04-27 | XMS | Encounter Summary ---
Demographics + + + | Address | [address] | | | [place] [address] | + + + | Home Phone [...] Providers + +------+ + | Care Boat Oar Maker Name | Role | Phone | [...] | | | | | [place], | | | | | | [place] [address] | | | +--------+ + + + [...] | | Patient: SHELBY GALDAMEZ Med Rec: [id number] Sex F Bdate: 1960 | | Date/Time Data | | Entered Into [facility] | | Anesth PostOp | | Surgery Date [id number] 10/11/03 10:54 | | [id number] 10/06/03 10:47 | | [id number] 10/04/03 10:47 | | [id number] 10/01/03 11:25 | | [id number] 09/28/03 10:01 | | [id number] 09/27/03 11:35 | | [id number] 09/14/03 11:13 | | [id number] 08/17/03 10:51 | | Anesthesiologist SEBASTIAN MARIO [...]
--- OUTSIDE RECORDS SUMMARY | ~2020-04-27 | XMS | Encounter Summary ---
Demographics + + + | Address | [address] | | | [place] [address] | + + + | Home Phone [...] Providers + +------+ + | Care Structural Iron Worker Name | Role | Phone | + +------+ + | Marta Jenkins LABOR ARBITRATOR | PCP | | + +------+ + [...] | Jamie Mailcode: [id number] [place], | | | | | [place], [place] | [place] [address] | | | | | [address] | | | | | | [phone] | | | +--------+ + + + [...] | + + + + + | [facility] | [address] | [place] [address] | | | LAB-MICRO | | | [...] | | | | | performed at [facility] | | | | | | [facility] | | | | | | Laboratory. | | | | + + + + + + + + | Specimen | + + | | + + + + + + + | Performing | Address | City/State/Zipcode | Phone Number | | Organization | | | | + + + + + | [facility] | [address] | [place] [address] | | | LAB-MICRO | | | [...] + + + | [facility] | [address] | [place] [address] | | | LAB-MICRO | | | [...] + + + | [facility] | [address] | [place] [address] | | | LAB-MICRO | | | [...] + + + | [facility] | [address] | [place] [address] | | | LAB-MICRO | | | [...] | | | | | performed at [facility] | | | | | | [facility] | | | | | | Laboratory | | | | + + + + + + + + | Specimen | + + | | + + + + + + + | Performing | Address | City/State/Zipcode | Phone Number | | Organization | | | | + + + + + | [facility] | [address] | [place] [address] | | | LAB-MICRO | | | [...] | | | | Test performed at [facility] | | | | | | [facility] | | | | | | Laboratory. | | | | + + + + + + + + | Specimen | + + | | + + + + + + + | Performing | Address | City/State/Zipcode | Phone Number | | Organization | | | | + + + + + | [facility] | [address] | [place] [address] | | | LAB-MICRO | | | [...] | | | | | performed at [facility] | | | | | | [facility] | | | | | | Laboratory. | | | | + + + + + + + + | Specimen | + + | | + + + + + + + | Performing | Address | City/State/Zipcode | Phone Number | | Organization | | | | + + + + + | [facility] | [address] | [place] [address] | | | LAB-MICRO | | | [...] + + + | [facility] | [address] | [place] [address] | | | LAB-MICRO | | | [...] | + + + + + | [facility] | [address] | [place] [address] | | | LAB-MICRO | | | [...] + + + | [facility] | [address] | [place] [address] | | | LAB-MICRO | | | [...] | | | | | performed at [facility] | | | | | | [facility] | | | | | | Laboratory | | | | + + + + + + + + | Specimen | + + | | + + + + + + + | Performing | Address | City/State/Zipcode | Phone Number | | Organization | | | | + + + + + | [facility] | [address] | [place] [address] | | | LAB-MICRO | | | [...] + + + | [facility] | [address] | [place] [address] | | | LAB-MICRO | | | [...] | | | | | performed at [facility] | | | | | | [facility] | | | | | | Laboratory. | | | | + + + + + + + + | Specimen | + + | | + + + + + + + | Performing | Address | City/State/Zipcode | Phone Number | | Organization | | | | + + + + + | [facility] | [address] | [place] [address] | | | LAB-MICRO | | | | + + + + + documented in this encounter Visit Diagnoses Not on filedocumented in this encounter"
--- OUTSIDE RECORDS SUMMARY | ~2020-04-27 | XMS | Encounter Summary ---
Demographics + + + | Address | [address] | | | [place] [address] | + + + | Home Phone [...] Team Providers + +------+ + | Care Release Coordinator Name | Role | Phone | + +------+ + PCP | Unavailable | + +------+ + Encounter Details +--------+ + + + + | Date | Type | Department | Care Team | Description | +--------+ + + + + | 11/22/ | Results | | Other, Faculty | | | 2003 | Only | | [phone] | | +--------+ + + + + [...] + + + | [facility] | [address] | [place] [address] | | | LAB-MICRO | | | [...] + + + | [facility] | [address] | [place] [address] | | | LAB-MICRO | | | [...] | + + + + + | [facility] | [address] | [place] [address] | | | LAB-MICRO | | | [...] + + + + | [facility] | [address] | [place] [address] | | | LAB-MICRO | | | [...] + + + + | [facility] | [address] | [place] [address] | | | LAB-MICRO | | | [...] + + + + | [facility] | [address] | [place] [address] | | | LAB-MICRO | | | [...] + + + | [facility] | [address] | [place] [address] | | | LAB-MICRO | | | | + + + + + documented in this encounter Visit Diagnoses Not on filedocumented in this encounter"
--- OUTSIDE RECORDS SUMMARY | ~2020-04-27 | XMS | Encounter Summary ---
Demographics + + + | Address | [address] | | | [place] [address] | + + + | Home Phone [...] Team Providers + +------+ + | Care Processing Technician Name | Role | Phone | [...] + + | 11/25/ | Anesthesia | [facility] | Helio Barkley | | | 2017 | Event | MED CTR OR INTRA OP | MD Tien [address] | | | | | [address] | [address] | | | | | [place] | [place] [address] | | | | | [address] | | | | | | [phone] | | | +--------+ + + + [...] Per surgeon request - received abx at [facility] | | | 9 | [...] +----+---+ + + | | 0 | [place] | | | | 9 | 43-degrees | | | | 5 | | | | | 0 | | | +----+---+ + + | | 0 | Quick Note | Purulent drainage per surgeon | | | 9 | | | | | 5 | | | | | 5 | | | +----+---+ + + | | 1 | [place] off | | | | 0 | [...] EVALUATION Shelby Galdamez 56 y.o. female 1960 [id number] Procedure(s) RIGHT URETEROSCOPY W/ LASER LITHOTRIPSY RIGHT [...] signed by Helio Barkley MD 11/25/2016 11:11 [facility] nesthesia Proc saurabh Mccarthy - Helio [...] EVALUATION Shelby Galdamez 56 y.o. female 1960 [id number] Procedure(s): RIGHT URETEROSCOPY W/ LASER LITHOTRIPSY (Right [...] [place] | | | | | | [id number] | | | | | | | [...]
--- OUTSIDE RECORDS SUMMARY | ~2020-04-27 | XMS | Encounter Summary ---
Demographics + + + | Address | [address] | | | [place] [address] | + + + | Home Phone [...] Providers + +------+ + | Care Comb Winder Name | Role | Phone | [...] | | | | | [place], | | | | | | [place] [address] | | | +--------+ + + + [...] | | Patient: SHELBY GALDAMEZ Med Rec: [id number] Sex F Bdate: 1960 | | Date/Time Data | | Entered Into [facility] | | Anesth PostOp | | Surgery Date [id number] 10/11/03 10:54 | | [id number] 10/06/03 10:47 | | [id number] 10/04/03 10:47 | | [id number] 10/01/03 11:25 | | [id number] 09/28/03 10:01 | | [id number] 09/27/03 11:35 | | [id number] 09/14/03 11:13 | | [id number] 08/17/03 10:51 | | Anesthesiologist SEBASTIAN MARIO [...]
--- OUTSIDE RECORDS SUMMARY | ~2020-04-27 | XMS | Encounter Summary ---
Demographics + + + | Address | [address] | | | [place] [address] | + + + | Home Phone [...] Providers + +------+ + | Care Production Specialist Name | Role | Phone | [...] | | | | | | [address] | | | | | | Loop Physician's | | | | | | [place], [facility] Floor | | | | | | [place], [place] | | | | | | [address] | | | | | | [phone] | | | +--------+ + + + [...] + + + +---------+ + + | [place]-3 Fatty | Take by mouth. | | [...]
--- OUTSIDE RECORDS SUMMARY | ~2020-04-27 | XMS | Encounter Summary ---
Demographics + + + | Address | [address] | | | [place] [address] | + + + | Home Phone [...] Providers + +------+ + | Care Pipe Washer Name | Role | Phone | [...] Pavilion | | | | | | [place], [place] | | | | | | [address] | | | | | | [phone] | | | +--------+ + + + [...] + + | [facility] | [address] [facility] | [place] [address] | | | PATHOLOGY | [address] | | | + + + + + | [facility] | [address] [facility] | [place] [address] | | | PATHOLOGY | [address] [...] [facility] DEPARTMENT OF | [address] | [place] [address] | | | PATHOLOGY | [address] | | | + + + + + | [facility] DEPARTMENT | [address] | [place] [address] | | | PATHOLOGY | [address] [...] | [facility] | [address] | [place] [address] | | | PATHOLOGY | [address] | | | + + + + + | [facility] | [facility] [address] | [place] [address] | | | PATHOLOGY | [address] [...] DEPARTMENT OF | [address] | [place] [address] | | | PATHOLOGY | [address] | | | + + + + + | [facility] DEPARTMENT OF | [address] | [place] [address] | | | PATHOLOGY | [address] [...]
--- OUTSIDE RECORDS SUMMARY | ~2020-04-27 | XMS | Clinical Summary ---
Demographics + + + | Address | [address] | | | [place] [address] | + + + | Home Phone [...] Team Providers + +------+ + | Care Marshmallow Machine Worker Name | Role | Phone | + +------+ + | JenkinsMarta jackson FOSTER PARENT | PCP | | + +------+ + Source Comments LION is fully live on both [facility] Ambulatory and [facility] InPatient.[facility] Allergies + + + + + + [...] | | + + + +---------+------+------+-------+ | [place]-3 Fatty | Take by mouth. | | [...] | | | + +--------+ +--------+-------+---------+--------+ | [employer] MEDICA[employer] | [employer]ER | [id number] | 06/01/20 | | | [...] gigi | | | 7 (Home) | [address] | + +--------+ +--------+ + + | Shelby Galdamez | Third | Self | [birth year] | | [address] | | | Democrat | | 1960 | [phone] | [address] [place] | | | Liabil | | | 7 (Home) | [address] | | | ity | | | | | + +--------+ +--------+ + + Advance Directives + + + + + | Type | Date Recorded | Patient | Explanation | | | | Plate Straightener | | + + + + + | Advance | | | | | Directives and | | | | | Living Will | | | | + + + + + | Power of | | | | | Rigging And Controls Aircraft Mechanic | | | | + + + [...]
--- OUTSIDE RECORDS SUMMARY | ~2020-04-27 | XMS | Encounter Summary ---
Demographics + + + | Address | [address] | | | [place] [address] | + + + | Home Phone [...] Providers + +------+ + | Care Cargo Vessel Stewardess Name | Role | Phone | + +------+ + | Travis Mcginnis MD | PCP | | + +------+ + Encounter Details +--------+ + + + + | Date | Type | Department | Care Team | Description | +--------+ + + + + | 08/03/ | Hospital | Diagnostic Imaging | | | | 2009 | Encounter | Services at [facility] | | | | | | [address] | | | | | | Roxann [address]ala Luigi | | | | | | [facility] | | | | | | [place], [place] | | | | | | [address] | | | | | | [phone] | | | +--------+ + + + [...] + + + +---------+ + + | Bradley-3 Fatty | Take by mouth. | | [...] of | | | | | | G6zpwvwcay/superior | | | | | | corner, [...]
--- OUTSIDE RECORDS SUMMARY | ~2020-04-27 | XMS | Encounter Summary ---
Demographics + + + | Address | [address] | | | [place] [address] | + + + | Home Phone [...] Providers + +------+ + | Care Quality Associate Name | Role | Phone | [...] as of this encounter Discharge Summaries Interface, Gluing Machine Adjuster In 02/27/2006 3:05 AM PDTAdmission Date: 09/13/2003 [...] readmitted. DISPOSITION: She was discharged to a nursing home facility. MEDICATIONS: 1. Docusate #80. 2. Oxycodone #80. 3. Indomethacin 25 mg, p.o. t.i.d. for six weeks. FOLLOWUP: She will see Dr. Garcia in two weeks. She is to continue wearing her abduction brace. If she has any changes in her wound she is to notify our clinic as soon as possible. Benson Boone M.D. Lloyd Garcia M.D. RT:[id number] signed by Interface, Gluing Machine Adjuster In at 02/27/2006 3:05 AM [facility] in this encounter Plan of Treatment Not on filedocumented as of this encounter Visit Diagnoses Not on filedocumented in this encounter"
--- OUTSIDE RECORDS SUMMARY | ~2020-04-27 | XMS | Encounter Summary ---
Demographics + + + | Address | [address] | | | [place] [address] | + + + | Home Phone [...] Providers + +------+ + | Care Composite Science Teacher Name | Role | Phone | + +------+ + PCP | Unavailable | + +------+ + Encounter Details +--------+ + + + + | Date | Type | Department | Care Team | Description | +--------+ + + + + | 09/14/ | Hospital | [facility] | Unknown, | | | 1991 | Encounter | MED CTR XRAY [address] | [address]k . | | | | | [address] | | | | | | [place] [address] | (Fax) | | | | | [phone] | | | +--------+ + + + [...] [place] | | | | | | [address] | | | | | | | | +--------+---------+ + + + documented as of this encounter Visit Diagnoses Not on filedocumented in this encounter"
--- OUTSIDE RECORDS SUMMARY | ~2020-04-27 | XMS | Encounter Summary ---
Demographics + + + | Address | [address] | | | [place] [address] | + + + | Home Phone [...] Team Providers + +------+ + | Care Diagrammer Name | Role | Phone | + [...] | unspecified | [address] | Rd [place], | | | | | whether | [place], [place] | [place] | | | | | generalized | [address] | [phone] | | | | | or | Phone: | Phone: | | | | | localized, | [phone] | [phone] | | | | | pelvic | Fax: | Fax: | | | | | region and | [phone] | [phone] | | | | | thigh | | | | | | | Osteoarthrit | | | | | | | is of Hip | | | | | | | Procedures | | | | | | | GA TOTAL HIP | | | | | | | | | | | | | | ARTHROPLASTY | | | | | | | GA | | | | | | | RECONSTRUC | | | | | | | HIP | | | | | | | SOCKET,RESEC | | | | | | | FEM HEAD | | | | | | | GA REMOVAL | | | | | | | OF ISCHIAL | | | | | | | BURSA [place] | | | | | | | [...] Pavilion | | | | | | [place], [place] | | | | | | [address] | | | | | | [phone] | | | +--------+---------+ + + + [...] surgeries scheduled to take place on the [place] at the [facility]: Surgeries scheduled in the [facility] ([address] [place] [address]): registration is located on the 4th floor of [facility] (Day Surgery). Surgeries scheduled in the [facility]: registration is located on the 9th floor. Surgeries scheduled in [facility]: registration is located on the 6th floor. Surgeries scheduled in the [facility]: registration is located i n the [facility] on the first floor. For surgeries scheduled to take place at the [facility]: registration is l [...] If you use specialized medical equipment at [facility], please check with your provider before bringing [...] surgeries scheduled to take place on the [place] at the [facility]: Surgeries scheduled in the [facility] ([address] [place] [address]): registration is located on the 4th floor of [facility] (Day Surgery). Surgeries scheduled in the [facility]: registration is located on the 9th floor. Surgeries scheduled in [facility]: registration is located on the 6th floor. Surgeries scheduled in the [facility]: registration is located i n the [facility] on the first floor. For surgeries scheduled to take place at the [facility]: registration is l [...] you use specialized medical equipment at [facility], please check with your provider before bringing [...] infection has s calvin been cleared with intermission coordinator antibiotics. In this time she has also [...] OF ACTION: see above PARQ: see above. [facility] umeunice in this encounter Plan [...] Performed At | + + + | [id number] Estimated GFR > 60 mL/min/1.73 sq m if non- | [facility] | | Polish [id number] Estimated GFR > 60 mL/min/1.73 sq m if | DEPARTMENT OF | | Polish GFR is estimated using the MDRD equation [...] HOSPITAL | [address] | [place] [address] | | | PATHOLOGY | [address] | | | + + + + + | [facility] | [address] | [place] [address] | | | PATHOLOGY | [address] [...] + + + | [facility] | [facility] | [place] [address] | | | PATHOLOGY | [address] | | | + + + + + | [facility] | [address] [facility] | [place] [address] | | | PATHOLOGY | [address] [...] + + + + | [facility] DEPARTMENT OF | [facility] | [place] [address] | | | PATHOLOGY | [address] | | | + + + + + | [facility] DEPARTMENT OF | [facility] | [place] [address] | | | PATHOLOGY | [address] [...] + + + + | PRODUCT | [id number] | | [facility] | | | UNIT [...] + + | [facility] | [address] [facility] | [place] [address] | | | PATHOLOGY | [address] | | | + + + + + | [facility] | [address] [place] [address] | [place] [address] | | | PATHOLOGY | [address] | | | + + + + + documented in this encounter Visit Diagnoses + + | Diagnosis | + + | Other specified pre-operative examination - Primary | + + documented in this encounter
--- OUTSIDE RECORDS SUMMARY | ~2020-04-27 | XMS | Encounter Summary ---
Demographics + + + | Address | [address] | | | [place] [address] | + + + | Home Phone [...] Team Providers + +------+ + | Care Mapping Editor Name | Role | Phone | [...] | | | | Mailcode: [id number] | [facility] [place] | | | | | [facility] | [address] | | | | | [place], [place] | [phone] | | | | | [address] | | | | | | [phone] | | | +--------+ + + + [...]
--- OUTSIDE RECORDS SUMMARY | ~2020-04-27 | XMS | Encounter Summary ---
Demographics + + + | Address | [address] | | | [place] [address] | + + + | Home Phone [...] Providers + +------+ + | Care Sanitation Lead Name | Role | Phone | [...] as of this encounter Progress Notes Interface, Interventional Radiology Technologist In - 06/03/2006 3:06 AM PDTCLINIC DATE: [...] by her new primary care physician in [place], and she is requesting a repeat hip [...] this would be inadvisable. Lloyd Garcia M.D. Food Server, Orthopedics and Rehabilitation / HS [id number] / [id number] / [id number] / [id number] cc: Ninfa Guillen M.D. [address] [facility], [place] [address]Igvkzzwnoxbzqd signed by Interface, Interventional Radiology Technologist In at 06/03/2006 3:06 AM PDTInterface, Interventional Radiology Technologist In - 06/03/2006 3:06 AM PDTCLINIC DATE: [...] ahead and send her back to [facility] Radiology Musculoskeletal specialist for a right intraarticular hip injection as this is what she wants. We will currently hold off on hip replacement due to her young age, and she can follow up back in the clinic in 6months' time. Tr Mcghee M.D. Lloyd Garcia M.D. / [id number] / [id number] / [id number] / Tdocumented in this encounter Plan of Treatment Not on filedocumented as of this encounter Visit Diagnoses Not on filedocumented in this encounter"
--- OUTSIDE RECORDS SUMMARY | ~2020-04-27 | XMS | Encounter Summary ---
Demographics + + + | Address | [address] | | | [place] [address] | + + + | Home Phone | | + + + | Preferred Language | Unknown | + + + | Marital Status | | + + + | Congregation Affiliation | 1076 | + + + [...] Providers + +------+ + | Care Bag Checker Name | Role | Phone | [...] pain, | [address] [place], | | | | | generalized | [place], [place] | [address] | | | | | Other | [address] [place] | [place], | | | | | symptoms | [place], [place] | [place] [address] | | | | | involving | [address] | Phone: | | | | | digestive | Phone: | [phone] | | | | | system([phone] | [phone] | Fax: | | | | | 9) Nausea | Fax: | [phone] | | | | | alone | [phone] | | | | | | Flatulence, | | | | | | | eructation, | | | | | | | and gas pain | | | | | | | Procedures | | | | | | | MA UPPER | | | | | | | GI | | | | | | | ENDOSCOPY,DI | | | | | | | AGNOSIS MA | | | | | | | UPPER GI | | | | | | | ENDOSCOPY,BI | | | | | | | OPSY MA | | | | | | [...] 2011 | | GASTROENTEROLOGY | [address] [place], [place] | generalized (Primary | | | | [address] | [address] [place], [place] | Dx); Other symptoms | | | | [address] [place], [place] | [address] | involving digestive | | | | [address] | | system; Nausea | | | | [phone] | | alone; Flatulence, | | | [...] [place] | | | | | | [address] | | | | | | | [...]
--- OUTSIDE RECORDS SUMMARY | ~2020-04-27 | XMS | Encounter Summary ---
Demographics + + + | Address | [address] | | | [place] [address] | + + + | Home Phone [...] + +------+ + | Care Street Light Servicer Supervisor Name | Role | Phone | [...] as of this encounter Progress Notes Interface, Sales Utility Representative In - 06/03/2006 3:06 AM PDTCLINIC DATE: [...] by her new primary care physician in [place], and she is requesting a repeat hip [...] this would be inadvisable. Lloyd Garcia M.D. Almond Blancher Hand, Orthopedics and Rehabilitation / HS [id number] / [id number] / [id number] / [id number] cc: Ninfa Guillen M.D. [address] [facility], [place] [address]Uutzxbjewizsff signed by Interface, Sales Utility Representative In at 06/03/2006 3:06 AM PDTInterface, Sales Utility Representative In - 06/03/2006 3:06 AM PDTCLINIC DATE: [...] go ahead and send her back to [facility] Radiology Musculoskeletal specialist for a right intraarticular hip injection as this is what she wants. We will currently hold off on hip replacement due to her young age, and she can follow up back in the clinic in 6months' time. Tr Mcghee M.D. Lloyd Garcia M.D. / [id number] / [id number] / [id number] / Tdocumented in this encounter Plan of Treatment Not on filedocumented as of this encounter Visit Diagnoses Not on filedocumented in this encounter"
--- OUTSIDE RECORDS SUMMARY | ~2020-04-27 | XMS | Encounter Summary ---
Demographics + + + | Address | [address] | | | [place] [address] | + + + | Home Phone [...] Providers + +------+ + | Care Truck Driver Flatbed Name | Role | Phone | + [...] + + | 11/25/ | Surgery | [facility] | Rustam Schmid MD | RIGHT URETEROSCOPY | | 2016 | | MED CTR OR INTRA OP | [address] [facility] | W/ LASER LITHOTRIPSY | | | | [address] | [place] | RIGHT URETERAL | | | | [place] | [address] | STENT PLACEMENT. | | | | [address] | [phone] | | | | | [phone] | | | +--------+---------+ + + + [...] upon return of cul ture results from [facility]. Stent may be removed by her housetrailer servicer on Saturday 5 or SaturdayDecember 03. AttachmentsThe following attachments cannot be sent through Care Everywhere.DIET, DISCHARGE INSTRUCTIONS FOR EATING A LOW-SALT (NICARAGUAN)KIDNEY STONES,PREVENTING (NICARAGUAN)documented in this encounter Medications at Time of [...] at 0545 via ground ambul ance from [facility] in [place]. C/o rt back/flank pain. Dry heaves noted. [...] Schmid MD - 11/25/2016 6:52 AM PST [facility] ADMIT HISTORY AND PHYSICAL Primary Care [...] is a 56 y.o. female, transferred from [place] emergency room with s ymptomatic right ureterolithiasis. [...] Signed by: Rustam Schmid MD, 11/25/2016 7:05 [facility] documented in this enc ounter Nursing [...] Rustam Schmid MD - [facility] Pt. Name/Age/: Shelby Galdamez 56 y.o. 1960 Med. Record Number: [id number] Date of Operation/Procedure: 11/25/2016 Preoperative Diagnosis: right ureteral stones [N20.1] Post-Op Diagnosis Codes: * Right ureteral stone [N20.1] Postoperative Diagnosis: Same Surgeon: Rustam Schmid MD Financial Compliance Manager(s): None Anesthesia Provider(s): Anesthesiologist: Helio Barkley MD Nuclear Operator: Rain Edouard Anesthesia Type: General Procedure(s): RIGHT URETEROSCOPIC LASER LITHOTRIPSY PLACEMENT RIGHT URETERAL STENT PLACEMENT Operative Indications: Shelby Galdamez is a 56 y.o. year old female transferred from [facility] several hours ago, with CT [...] the usual sterile fashion . A 23 Algerian cystoscope was introduced to the bladder with [...] were removed. A 25 cm x 14 Algerian ureteral access sheath was threaded over the [...] back over the safety wire. A 6 Algerian by 26 cm diana ble-J stent was [...] Signed by: Rustam Schmid MD, 11/25/2016 11:01 [facility] documented in this enc ounter Plan [...] [place] | | | | | | [address] | | | | | | | [...] MD | | | | | | ([id number]) on 11/25/2016 | | | | | [...]
--- OUTSIDE RECORDS SUMMARY | ~2020-04-27 | XMS | Encounter Summary ---
Demographics + + + | Address | [address] | | | [place] [address] | + + + | Home Phone [...] Providers + +------+ + | Care Community Resource Consultant Name | Role | Phone | [...] as of this encounter Progress Notes Interface, Pre Press Manager In - 08/28/2006 3:05 AM PSTCLINIC DATE: [...] to Dr. Gant. Benson Cooper M.D. / [id number] / [id number] / [id number] / [id number] C: 11/27/1999 kavita cc: Helio Noland M.D. [facility] [address] Lloyd Garcia M.D. Department of Orthopedics documented in this encounter Plan of Treatment Not on filedocumented as of this encounter Visit Diagnoses Not on filedocumented in this encounter"
--- OUTSIDE RECORDS SUMMARY | ~2020-04-27 | XMS | Encounter Summary ---
Demographics + + + | Address | [address] | | | [place] [address] | + + + | Home Phone [...] +------+ + | Care Mergers And Acquisitions Attorney Name | Role | Phone | + +------+ + | Travis Mcginnis MD | PCP | | + +------+ + Encounter Details +--------+ + + + + | Date | Type | Department | Care Team | Description | +--------+ + + + + | 07/01/ | Abstract | Orthopaedics | Note, Orthopedics | | | 2018 | | [facility] | | | [facility] | [facility] | | | | | | [facility]aling [address] | | | | | | e [facility] | | | | [facility], | | | | | | Building | | | | | | Floor [place], [place] | | | | | | [address] | | | | | | [phone] | | | +--------+ + + + [...] bone in back. 2009. Dr Lloyd [facility] R JUAN DAVID 2002 Have you seen anyone for this yet? [facility] in [place]. ED 06/24 [facility] in [facility]. Has had sepsis and MRSA and need to lose 35 lbs per this office. Eugenie [facility] [phone] 07/03 via phone MRI May 2018 CT [facility] impax X-Ray May 2018 XR [facility] impax CT no Ultrasound no Other imaging [...] will you be traveling for this appointment? [place] Note: If patient traveling greater than 1 [...]
--- OUTSIDE RECORDS SUMMARY | ~2020-04-27 | XMS | Encounter Summary ---
Demographics + + + | Address | [address] | | | [place] [address] | + + + | Home Phone [...] Team Providers + +------+ + | Care Gill Box Operator Name | Role | Phone | [...] | | | [address] | [address] [place], [place] | | | | | Mailcode: [id number] | [address] | | | | | [facility] | | | | | | [place], [place] | | | | | | [address] | | | | | | [phone] | | | +--------+ + + + [...] 10/30/99 | | | | | | [id number] hours. | | | | | | Dictated 11/01/99. | | | | | | FINDINGS: There is a | | | | | | shallow right rotatory | | | | | | lumbar convexity. | | | | | | [id number] S1 flexion | | | | | [...]
--- OUTSIDE RECORDS SUMMARY | ~2020-04-27 | XMS | Encounter Summary ---
Demographics + + + | Address | [address] | | | [place] [address] | + + + | Home Phone [...] Providers + +------+ + | Care Abstract Manager Name | Role | Phone | [...] | | | | Mailcode: [id number] | [place], [place] | | | | | [facility] | [address] | | | | | [place], [place] | [phone] | | | | | [address] | | | | | | [phone] | | | +--------+ + + + [...]
--- OUTSIDE RECORDS SUMMARY | ~2020-04-27 | XMS | Encounter Summary ---
Demographics + + + | Address | [address] | | | [place] [address] | + + + | Home Phone [...] Providers + +------+ + | Care Sales Market Leader Name | Role | Phone | [...] | | | Mailcode: [id number] | [facility] [place] | | | | | [facility] | [address] | | | | | [place], [place] | [phone] | | | | | [address] | | | | | | [phone] | | | +--------+ + + + [...]
--- OUTSIDE RECORDS SUMMARY | ~2020-04-27 | XMS | Encounter Summary ---
Demographics + + + | Address | [address] | | | [place] [address] | + + + | Home Phone [...] | | | | Mailcode: [id number] | [place], [place] | | | | | [facility] | [address] | | | | | [place], [place] | [phone] | | | | | [address] | | | | | | [phone] | | | +--------+ + + + [...]
--- OUTSIDE RECORDS SUMMARY | ~2020-04-27 | XMS | Encounter Summary ---
Demographics + + + | Address | [address] | | | [place] [address] | + + + | Home Phone [...] + +------+ + | Care Incident Response Manager Name | Role | Phone | + +------+ + | Marta Jenkins VEHICLE REFINISHER | PCP | | + +------+ + [...] | Jamie Mailcode: [id number] [place], | | | | | [place], [place] | [place] [address] | | | | | [address] | | | | | | [phone] | | | +--------+ + + + [...]
--- OUTSIDE RECORDS SUMMARY | ~2020-04-27 | XMS | Encounter Summary ---
Demographics + + + | Address | [address] | | | [place] [address] | + + + | Home Phone [...] Providers + +------+ + | Care Laundry Operator Finishing Name | Role | Phone | + [...] | | | [address] | [address] [place], [place] | | | | | Mailcode: [id number] | [address] | | | | | [facility] | | | | | | [place], [place] | | | | | | [address] | | | | | | [phone] | | | +--------+ + + + [...]
--- OUTSIDE RECORDS SUMMARY | ~2020-04-27 | XMS | Encounter Summary ---
Demographics + + + | Address | [address] | | | [place] [address] | + + + | Home Phone [...] Providers + +------+ + | Care Access Assoc Name | Role | Phone | [...] + + | 02/22/ | Office | [facility] | Ladarius Martínez PA | MAMADOU on CPAP (Primary | | 2016 | Visit | SLEEP DISORDER [address] | [address] | Dx) | | | | [address] [place] | [place] | | | | | [place] [address] | [address] | | | | | [phone] | | | +--------+---------+ + + + [...] mask obtained from: [facility] [place] Pressure: 9-16 cm Median: 12.2 cm 95%: [...] all". 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 Jac jackson has a for a variety of reasons/excuses for not using CPAP. During a [facility] she was told that her [...] a prescription to [facility] [place] for a nocturnal pulse oxym etry study [...] [place] | | | | | | [address] | | | | | | | | +--------+---------+ + + + documented as of this encounter Visit Diagnoses + + | Diagnosis | + + | MAMADOU on CPAP - Primary Obstructive sleep apnea (adult) (pediatric) | + + documented in this encounter
--- OUTSIDE RECORDS SUMMARY | ~2020-04-27 | XMS | Encounter Summary ---
Demographics + + + | Address | [address] | | | [place] [address] | + + + | Home Phone [...] Team Providers + +------+ + | Care Vehicle Maintenance Technician Name | Role | Phone | [...] as of this encounter Progress Notes Interface, Investment Trader In - 04/28/2005 7:30 PM PDTClinic Date: [...] Mariella Camacho P.A.-C. Lloyd Garcia M.D. / [id number] / [id number] / [id number] / [id number] Tdocumented in this encounter Plan of Treatment Not on filedocumented as of this encounter Visit Diagnoses Not on filedocumented in this encounter"
--- OUTSIDE RECORDS SUMMARY | ~2020-04-27 | XMS | Encounter Summary ---
Demographics + + + | Address | [address] | | | [place] [address] | + + + | Home Phone [...] Team Providers + +------+ + | Care Geological Survey Field Assistant Name | Role | Phone | [...] as of this encounter Discharge Summaries Interface, Freelance Writer In - 03/06/2006 1:10 AM PDTAdmission Date: [...] time of discharge. She initially had a KIT PLANNER that was weaned off as well as [...]
--- OUTSIDE RECORDS SUMMARY | ~2020-04-27 | XMS | Encounter Summary ---
Demographics + + + | Address | [address] | | | [place] [address] | + + + | Home Phone [...] Team Providers + +------+ + | Care Policy Value Calculator Name | Role | Phone | + +------+ + PCP | Unavailable | + +------+ + Encounter Details +--------+ + + + + | Date | Type | Department | Care Team | Description | +--------+ + + + + | 06/06/ | Hospital | [facility] | Jared Wood MD | | | 2010 | Encounter | [facility] | [address] | | | | | CENTER [address] | [place], [place] | | | | | [facility] | [address] | | | | | [place], [place] | | | | | | [address] | | | | | | [phone] | | | +--------+ + + + [...] No tobacco or alcohol. She resides in [place]. She states she is over here visiting [...] FILI GALDAMEZ : 58 | Signed MR[facility] [id number] [id number] | ADM 06/06/11 DS 06/06/11 DEP ER | Jared Wood MD | [facility] ES: B R pt [phone] | EMERGENCY CENTER THIS REPORT IS CONFID [...] hydrocodone. Follow up with her doctor in [place]. Heat t o her back alternating with ice. Stretching. Good back mechanics. Activity as tolerated. Re turn to the ER for increased pain, weakness, worsening. Condition on discharge is good. Jared Wood MD MARGO:NLA Job ID:[id number] Doc ID:[id number] cc: Electronically Signed 06/07/11 1307 Jared Wood MD DAWITJulienABEBEFILI Carin Sea : 58 | Signed MR# [id number] ACCT# [id number] | ADM 06/06/11 DS 06/06/11 DEP ER | Jared Wood MD | [facility] ES: B R pt [phone] | EMERGENCY CENTER THIS REPORT IS CONFID [...] [place] | | | | | | [address] | | | | | | | | +--------+---------+ + + + documented as of this encounter Visit Diagnoses Not on filedocumented in this encounter"
--- OUTSIDE RECORDS SUMMARY | ~2020-04-27 | XMS | Encounter Summary ---
Demographics + + + | Address | [address] | | | [place] [address] | + + + | Home Phone [...] Team Providers + +------+ + | Care Dowel Setting Machine Operator Name | Role | Phone [...] Transcriptions | + + | Interface, Furnace Keeper In - 09/19/2005 9:05 PM PST Date: | | 10/08/2003Attending Surgeon: Marguerite Araujo M.D.Photographic Process Screen Maker(s): | | Stas Menjivar M.D.Preoperative Diagnosis(es):Right hip [...] recoveryroom in stable condition.Marguerite Araujo, | | [place] / [id number] / [id number] / [id number] / T: 10/08/2003 | |a clean granulating [...] | | | |JEMarcus / [place] | |[id number] / [id number] / [id number] / | | | | | + + OPERATION RECORD (10/08/2003) + + | Transcriptions | + + | Interface, Furnace Keeper In - 09/19/2005 9:05 PM PST Date: | | 10/08/2003Attending Surgeon: Lloyd Garcia M.D.Photographic Process Screen Maker(s): | | Benson Boone M.D. Stas Menjivar, [...] from the OR table to the [facility] with the hipsflexed and abduction pillow in place and | | brought from the Operating Room tothe Recovery Room in stable and satisfactory condition | | having tolerated theprocedure well without apparent complication. All counts were | | reportedcorrect prior to leaving the Operating Room. There were no apparenthypotensive | | episodes or other anesthetic difficulties.Lloyd Garcia M.D.Data Entry Manager, | | Orthopedics and Rehabilitation / [id number] / [id number] / [id number] / T: | | 10/08/2003 | |tube [...] | | | |Lloyd Garcia M.D. | |Data Entry Manager, Orthopedics and Rehabilitation | | | | / | |[id number] / [id number] / [id number] / | | | | | + + OPERATION RECORD (10/05/2003) + + | Transcriptions | + + | Interface, Furnace Keeper In - 09/19/2005 9:05 PM PST Date: | | 10/05/2003Attending Surgeon: Lloyd Garcia M.D.Photographic Process Screen Maker(s): | | Benson Boone M.D.Preoperative Diagnosis(es):Right hip [...] | case.Benson Boone M.D.Lloyd Garcia M.D.RT / [id number] / [id number] / [id number] / [id number]: | | 10/05/2003T: 10/05/2003 | |flap for [...] | | | |RT / HS | |[id number] / [id number] / [id number] / [id number] | | | | | + + documented in this encounter Visit Diagnoses Not on filedocumented in this encounter"
--- OUTSIDE RECORDS SUMMARY | ~2020-04-27 | XMS | Encounter Summary ---
Demographics + + + | Address | [address] | | | [place] [address] | + + + | Home Phone [...] as of this encounter Progress Notes Interface, Gold Miner In - 2006 1:06 AM PDTCLINIC DATE: 06/24/2003 ORTHOPEDIC CLINIC HISTORY: This is a 43-year-old obese female followed for right hip degenerative joint disease, returns to clinic today having had no relief after her last 2 fluoroscopically guided cortisone injections on October 05, 2002, and January 26, 2003. The x-rays at that time revealed mkhqtovo-xm-mrjulbjl degenerative joint disease. I confirmed that the [...] She does continue to drive in from [employer] for her care here. She continues to [...] times per day. PHYSICAL EXAMINATION GENERAL: A chpohlrd-yu-yyvertqk obese short statured woman who ambulates with [...] authorization has been obtained. Lloyd Garcia M.D. [facility] Tech of Orthopedics and Rehabilitation / [id number] / [id number] / [id number] / cc: Ninfa Guillen M.D. [address] [place] [address] [id number] signed by Interface, Gold Miner In at 2006 1:06 AM [facility]ed in this encounter Plan of Treatment Not on filedocumented as of this encounter Visit Diagnoses Not on filedocumented in this encounter"
--- OUTSIDE RECORDS SUMMARY | ~2020-04-27 | XMS | Encounter Summary ---
Demographics + + + | Address | [address] | | | [place] [address] | + + + | Home Phone [...] Providers + +------+ + | Care Environmental Services Tech Name | Role | Phone | [...] Rd | | | | | | [place], [place] | | | | | | [address] | | | +--------+ + + + [...]
--- OUTSIDE RECORDS SUMMARY | ~2020-04-27 | XMS | Encounter Summary ---
Demographics + + + | Address | [address] | | | [place] [address] | + + + | Home Phone [...] Team Providers + +------+ + | Care Mh Teacher Name | Role | Phone | [...] | | | Hip pain SI | [address] | [address] | | | | | | [address] | [address] [facility] | | | | | (sacroiliac) | [facility], | | | | | joint | Rd | 10th Floor | | | | | inflammation | [place], [place] | [place], [place] | | | | | ([facility]) | [address] | [address] | | | | | Procedures | | Phone: | | | | | CT INJ | | [phone] | | | | | SACROILIAC | | Fax: | | | | | JOINT | | [phone] | | | | | W/NEEDLE | | | | | | | PLCMT | | | +--------+--------+ + + + + Encounter Details +--------+ + + + + | Date | Type | Department | Care Team | Description | +--------+ + + + + | 03/22/ | Hospital | Diagnostic Imaging | | | | 2009 | Encounter | Services at [facility] | | | | | | [address] | | | | | | [address]oxann [address] | | | | | | [address] | | | | | | [place], [place] | | | | | | [address] | | | | | | [phone] | | | +--------+ + + + [...] | + + + +---------+--------+ + | [place]-[facility] Fatty | Take by mouth. | | [...] None. | | | | | | Major Case Detective: Dr. Moss, | | | | | | senior vice president and chief information officer. | | | | | | Food Order Delivery Runner: | | | | | | Sue, [...] the | | | | | | end user support specialist. Charcoal [employer]er [employer] | | | | | | imaging [...]
--- OUTSIDE RECORDS SUMMARY | ~2020-04-27 | XMS | Encounter Summary ---
Demographics + + + | Address | [address] | | | [place] [address] | + + + | Home Phone [...] Providers + +------+ + | Care Developer Relations Manager Name | Role | Phone | + +------+ + | Marta Jenkins ACCOUNTING MANAGER | PCP | | + +------+ + Encounter Details +--------+ + + + + | Date | Type | Department | Care Team | Description | +--------+ + + + + | 11/19/ | Documentati | Digestive Health | Clinic, Surgery | | | 2019 | on | Center at [facility] [address] | | | | | | [address] [facility] | | | | | | for Health and | | | | | | Healing, [address] | | | | | | [place], [place] | | | | | | [address] | | | | | | [phone] | | | +--------+ + + + [...]
--- OUTSIDE RECORDS SUMMARY | ~2020-04-27 | XMS | Encounter Summary ---
Demographics + + + | Address | [address] | | | [place] [address] | + + + | Home Phone [...] Team Providers + +------+ + | Care Servicer Coin Machines Name | Role | Phone | + [...] Pavilion | | | | | | [place], [place] | | | | | | [address] | | | | | | [phone] | | | +--------+ + + + [...] | | | | | FINDINGS: The computer system specialist | | | | | | radiographs [...] | | | | | FINDINGS: The computer system specialist | | | | | | radiographs [...]
--- OUTSIDE RECORDS SUMMARY | ~2020-04-27 | XMS | Encounter Summary ---
Demographics + + + | Address | [address] | | | [place] [address] | + + + | Home Phone [...] Team Providers + +------+ + | Care Retirement Officer Name | Role | Phone | + +------+ + PCP | Unavailable | + +------+ + Encounter Details +--------+ + + + + | Date | Type | Department | Care Team | Description | +--------+ + + + + | 11/22/ | Results | Orthopaedics at | Peng Muro | | | 2003 | Only | [facility] [address] O[address] MD,PhD [address] | | | | | [address] | [address] | | | | | Mailcode: PV430 | [place], [place] | | | | | [facility] | [address] | | | | | [place], [place] | [phone] | | | | | [address] | | | | | | [phone] | | | +--------+ + + + [...]
--- OUTSIDE RECORDS SUMMARY | ~2020-04-27 | XMS | Encounter Summary ---
Demographics + + + | Address | [address] | | | [place] [address] | + + + | Home Phone [...] Team Providers + +------+ + | Care Barbering Instructor Name | Role | Phone | [...] as of this encounter Progress Notes Interface, Foundation Stage Teacher In - 04/28/2005 10:57 PM PDTClinic Date: [...] resolved, and she attributes to eating a Uzbek pork and vegetable lap dish called [employer]. Physical Examination General: Shelby is in good [...] drain is in place. Lloyd Garcia M.D. Identifier [facility] / [place] [id number] / [id number] / [id number] / cc: Everett Guillen M.D. [address] [place] [address] [id number] signed by Interface, Foundation Stage Teacher In at 04/28/2005 10:57 PM PDTdocumented in this encounter Plan of Treatment Not on filedocumented as of this encounter Visit Diagnoses Not on filedocumented in this encounter"
--- OUTSIDE RECORDS SUMMARY | ~2020-04-27 | XMS | Encounter Summary ---
Demographics + + + | Address | [address] | | | [place] [address] | + + + | Home Phone [...] Providers + +------+ + | Care Plate Hanger Name | Role | Phone | [...] | | | | | | | [address] | | | | | | | [address] | | | | | | | Jamie 2SE/UHN85 | | | | | | | Rose | | | | | | | Terrence | | | | | | | (MNP/OLD [facility]) | | | | | | | [place], | | | | | | | [place] [address] | +--------+--------+ + + + + Encounter Details +--------+ + + + + | Date | Type | Department | Care Team | Description | +--------+ + + + + | 09/06/ | Hospital | [facility] [address] | Tyrone Colby MD | | | 2007 - | Encounter | [address] [facility] [address] | [address] [facility] | | | | | 2SE/UHN85 | [facility] [address] | | | 09/09/ | | Rose Ocampo | [place], [place] | | | 2007 | | (MNP/OLD [facility]) | [address] | | | | | [place], [place] | [phone] | | | | | [address] | | | +--------+ + + + [...] #3. Radiation oncology team was consulted and [facility] administered a single radiation treatment as [...] continued PT/OT at [facility] 1. You may remove dressing 3 days after your surgery and OK for shower thereafter as long a s the incision is not draining. Sponge bath until dressings off. No soaking in tub, pool, et c. If there is drainage after [address] new guaze on the incision and call the Orthopaedi c clinic [phone]. 2. Continue to take Aspirin 325mg twice a day for a total of 6 weeks. Stop if you have stom ach upset or blood in your stool. Let your surgeon know if you have had GI bleeding in the p ast after taking Aspirin or NSAID's. 3. DO NOT let anyone start you on Antibiotics if they suspect your wound is infected. Call nurse companion [facility] Orthopaedist first. Call [phone] for daytime and weekdays, or [phone] for nights and weekends. If you have [...] Dr. Colby in 2 wks. Please call [phone] now to confirm appointment. Follow Up Tests: (Tests at [facility] must be entered into [facility]) none Condition On Discharge: Good Discharge Medications: [...] Hemovac drain removed on post-op day #1. Agnulo catheter removed on post-op day #3. Radiation [...] incision and call the Orthopaedi c clinic [phone]. 2. Continue to take Aspirin 325mg twice a day for a total of 6 weeks. Stop if you have stom ach upset or blood in your stool. Let your surgeon know if you have had GI bleeding in the p ast after taking Aspirin or NSAID's. 3. DO NOT let anyone start you on Antibiotics if they suspect your wound is infected. Call nurse companion [facility] Orthopaedist first. Call [phone] for daytime and weekdays, or [phone] for nights and weekends. If you have [...] Dr. Colby in 2 wks. Please call [phone] now to confirm appointment. Follow Up Tests: (Tests at [facility] must be entered into [facility]) none Condition On Discharge: [...] Faculty - 8 12:00 AM Shelby Thompson [id number] [facility] REC NUMBER: [id number] NAME : Shelby Galdamez DATE : 1960 Admit Date: 09/06/2008 Discharge Date: 09/09/2008 PHYSICIAN'S REQUEST FOR HOME HEALTH SERVICES Relevant History: Location to receive services if other than home: Allergies: Height: Weight: Ordering Physician: [address] [facility] [address], [place] [address] Physician to follow for ongoing home health orders: PCP Name: PCP Phone: Discharge Need(s): 1. Nursing Home Facility Discharge Vendor: [facility] Discharge Suggested First Visit/Delivery Date: Discharge Service/Equipment: 2. Transportation Discharge Vendor: Medicaid - [place] Discharge Suggested First Visit/Delivery Date: Discharge Service/Equipment: stretcher 12:30pm Tare Worker: Tr Rosales - 09/08/2008 2:22 PM PSTRADIATION [...] will check karey k as able . Tahsa Harding OTR//L Pager [phone] Tyrone Haney - 2007 7:55 AM PST [...] plan of care. TYRONE COLBY MD [facility] [address] 2se/uhn[address] [place] [address] Taz Rand - 08/30 5:50 AM PST [...] DEPARTMENT OF | [address] | [place] [address] | | | PATHOLOGY | [address] | | | + + + + + | [facility] DEPARTMENT OF | [address] | [place] [address] | | | PATHOLOGY | [address] [...] + + + + + | [facility] DEPARTMENT OF | [address] | [place] [address] | | | PATHOLOGY | [address] | | | + + + + + | [facility] DEPARTMENT OF | [address] | [place] [address] | | | PATHOLOGY | [address] [...] + + + + | [facility] | [address] [facility] | [place] [address] | | | PATHOLOGY | [address] | | | + + + + + | [facility] | [address] [facility] | [place] [address] | | | PATHOLOGY | [address] [...] + + + + + | [facility] DEPARTMENT OF | [address] [facility] | [place] [address] | | | PATHOLOGY | [address] | | | + + + + + | [facility] DEPARTMENT OF | [address] [facility] | [place] [address] | | | PATHOLOGY | [address] [...] + + + + + | [facility] DEPARTMENT OF | [address] | [place] [address] | | | PATHOLOGY | [address] | | | + + + + + | [facility] DEPARTMENT OF | [address] | [place] [address] | | | PATHOLOGY | [address] [...] | | THERAPY | | | | CIGARETTE MACHINE FILLER | | | | + + + [...] [facility] RES[facility] | [address] | [place], [place] | | | THERAPY | [address] | [address] | | + + + + + | [facility] | [address] | [place], [place] | | | THERAPY | [address] | [address] | | + + + + + [...] Lynn, | | | | | | CIGARETTE MACHINE FILLER | | | | + + + [...] [facility] RES[facility] | [address] | [place], [place] | | | THERAPY | [address] | [address] | | + + + + + | [facility] RES[facility] | [address] | [place], [place] | | | THERAPY | [address] | [address] | | + + + + + [...] + + + + + | [facility] DEPARTMENT OF | [address] [facility] | [place] [address] | | | PATHOLOGY | [address] | | | + + + + + | [facility] DEPARTMENT OF | [address] [facility] | [place] [address] | | | PATHOLOGY | [address] [...] + + + + | [facility] | [address] [facility] | [place] [address] | | | PATHOLOGY | [address] | | | + + + + + | [facility] | [address] [facility] | [place] [address] | | | PATHOLOGY | [address] [...] HOSPITAL OF | [address] | [place] [address] | | | PATHOLOGY | [address] | | | + + + + + | [facility] | [address] | [place] [address] | | | PATHOLOGY | [address] [...] + + + + | [facility] | [address] [facility] | [place] [address] | | | PATHOLOGY | [address] | | | + + + + + | [facility] | [address] [facility] | [place] [address] | | | PATHOLOGY | [address] [...] Recio, | | | | | | CIGARETTE MACHINE FILLER | | | | + + + [...] [facility] | [address] | [place], [place] | | | THERAPY | [facility] | [address] | | + + + + + | [facility] RES[facility] | [address] | [place], [place] | | | THERAPY | [facility] | [address] | | + + + + + [...] | THERAPY | | | | Hemal, CIGARETTE MACHINE FILLER | | | | + + + [...] [facility] RES[facility] | [address] | [place], [place] | | | THERAPY | [address] | [address] | | + + + + + | [facility] RES[facility] | [address] | [place], [place] | | | THERAPY | [address] [facility] | [address] | | + + + + + [...] Recio, | | | | | | CIGARETTE MACHINE FILLER | | | | + + + [...] + | [facility] | [address] [facility] | [place], [place] | | | THERAPY | [facility] | [address] | | + + + + + | [facility] | [address] [facility] | [place], [place] | | | THERAPY | [facility] | [address] | | + + + + + [...] [facility] RES[facility] | [address] | [place], [place] | | | THERAPY | [address] | [address] | | + + + + + | [facility] RES[facility] | [address] | [place], [place] | | | THERAPY | [address] [facility] | [address] | | + + + + + [...] Performed At | + + + | [id number] | | | [id number] TALLY | | | [place] [id number] Date: | | | 09/06/2008 Attending Surgeon: | | | Tyrone Colby M.D. Tool And Production Planner(s): | | | Maximiliano Chisholm M.D. | [...] | | decubitus position with a hip ribbon weaver. The right hind quadrant and | | [...] Tyrone Alcantar | | | Sierra Colby. [facility] [id number] / [id number] / [id number] / | | | | | + + + + + | Procedure Note | + + | Tyrone Colby MD - 09/06/2008 12:00 AM [facility] [id number] | | [id number] CHAD Osei | | [id number] Date: 09/06/2008 Attending Surgeon: Tyrone | | Ortiz Colby M.D. Tool And Production Planner(s): Maximiliano Chisholm M.D. | | Linh Wiggins [...] decubitus position with a hip | | ribbon weaver. Theright hind quadrant and lower extremity were [...] is | | warranted. Tyrone Colby M.D. [facility] / [id number] / [id number] / [id number] /D: | | 09/06/2008T: 09/06/2008 | |anteriorly [...] Colby M.D. | | | | | |[facility] / | |[id number] / [id number] / [id number] / | | | | | | [...] + +---------+ +---+--------+---+ | morphine 5 mg/mL COTTAGE ATTENDANT infusion | New Bag | 09/07/20 | [...] | | | | | 1955, Until [facility] 09/09/08 at 1941, | | | [...]
--- OUTSIDE RECORDS SUMMARY | ~2020-04-27 | XMS | Encounter Summary ---
Demographics + + + | Address | [address] | | | [place] [address] | + + + | Home Phone [...] Providers + +------+ + | Care Delivery Director Name | Role | Phone | [...] | | | | Mailcode: PV430 | [place], [place] | | | | | [facility] | [address] | | | | | [place], [place] | [phone] | | | | | [address] | | | | | | [phone] | | | +--------+ + + + [...]
--- OUTSIDE RECORDS SUMMARY | ~2020-04-27 | XMS | Encounter Summary ---
Demographics + + + | Address | [address] | | | [place] [address] | + + + | Home Phone [...] Team Providers + +------+ + | Care Stucco Mason Name | Role | Phone | + [...] | [facility] | MEGAN Reddy [address] | | | | | [address] | [address] | | | | | Loop Physician's | | | | | | [place], 3rd floor | [address] | | | | | | [phone] | | | | | [address] | | | | | | [phone] | | | +--------+ + + + [...] CELL | 7.8 | K/cu mm | [facility] | | | COUNT | | | [facility] | | | | | | [facility] - | | | | | | [place] | | + +-------+ + + + | RED CELL | 4.86 | M/cu mm | [facility] | | | COUNT | | | MEDICAL | | | | | | [facility] - | | | | | | [place] | | + +-------+ + + + | HEMOGLOBIN | 14.1 | 12.1999 - 15 | [facility] | | | | | g/dL | MEDICAL | | | | | | [facility] - | | | | | | [place] | | + +-------+ + + + | HEMATOCRIT | 41.2 | % | [facility] | | | | | | MEDICAL | | | | | | [facility] - | | | | | | [place] | | + +-------+ + + + | MCV | 85 | fL | [facility] | | | | | | MEDICAL | | | | | | [facility] - | | | | | | [place] | | + +-------+ + + + | MCH | 29 | pg | [facility] | | | | | | MEDICAL | | | | | | [facility] - | | | | | | [place] | | + +-------+ + + + | MCHC | 34.2 | g/dL | [facility] | | | | | | [facility] | | | | | | [facility] - | | | | | | [place] | | + +-------+ + + + | PLATELET | 367 | K/cu mm | [facility] | | | COUNT | | | MEDICAL | | | | | | [facility]ENTER - | | | | | | [place] | | + +-------+ + + + | NEUTROPHIL | 59.2 | % | [facility] | | | % | | | MEDICAL | | | | | | [facility] - | | | | | | [place] | | + +-------+ + + + | LYMPHOCYTE | 32.5 | % | [facility] | | | % | | | MEDICAL | | | | | | [facility] - | | | | | | [place] | | + +-------+ + + + | MONOCYTE % | 6.1 | % | [facility] | | | | | | [facility] | | | | | | [facility] - | | | | | | [place] | | + +-------+ + + + | EOS % | 1.5 | % | [facility] | | | | | | MEDICAL | | | | | | [facility] - | | | | | | [place] | | + +-------+ + + + | BASO % | 0.7 | % | [facility] | | | | | | [facility] | | | | | | [facility] - | | | | | | [place] | | + +-------+ + + + | RDW | 14.5 | % | [facility] | | | | | | [facility] | | | | | | [facility] - | | | | | | [place] | | + +-------+ + + + | MPV | | fL | [facility] | | | | | [facility] | | | | | | [facility] - | | | | | | [place] | | + +-------+ + + + | NEUTROPHIL | 4.6 | K/cu mm | [facility] | | | # | | | [facility]ICAL | | | | | | [facility] - | | | | | | [place] | | + +-------+ + + + | LYMPHOCYTE | 2.5 | K/cu mm | [facility] | | | # | | | [facility] | | | | | | [facility] - | | | | | | [place] | | + +-------+ + + + | MONOCYTE # | 0.5 | K/cu mm | [facility] | | | | | [facility] | | | | | | [facility] - | | | | | | [place] | | + +-------+ + + + | EOS # | 0.1 | K/cu mm | [facility] | | | | | | [facility] | | | | | | [facility] - | | | | | | [place] | | + +-------+ + + + | BASO # | 0.1 | | [facility] | | | | | | [facility] | | | | | | [facility] - | | | | | | [place] | | + +-------+ + + + | PHOSPHORUS, | 3.9 | mg/dL | [facility] | | | PLASMA | | | [...] | + + + + + | [facility] | [address] | [place] [address] | | | [facility] - [place] | | | | + + + + + COMPLETE METABOLIC SET (NA,K,CL,CO2,BUN,CREAT,GLUC,CA,AST,ALT,BILI TOTAL,ALK PHOS,ALB,PROT TOTAL) (03/01/2011 9:55 AM PDT) + +-------+ + + + | Component | Value | Ref Range | Performed | Pathologist | | | | | At | Signature | + +-------+ + + + | GLUCOSE, | 106 | 65 - 110 mg/dL | [facility] | | | PLASMA | | | MEDICAL | | | (LAB) | | | CENTER - | | | | | | [place] | | + +-------+ + + + | BUN, PLASMA | 10 | mg/dL | [facility] | | | (LAB) | | | MEDICAL | | | | | | CENTER - | | | | | | [place] | | + +-------+ + + + | CREATININE | 0.7 | mg/dL | [facility] | | | PLASMA | | | MEDICAL | | | (LAB) | | | CENTER - | | | | | | [place] | | + +-------+ + + + | TOTAL | 7.4 | g/dL | [facility] | | | PROTEIN, | | | MEDICAL | | | PLASMA | | | CENTER - | | | (LAB) | | | [place] | | + +-------+ + + + | ALBUMIN, | 3.8 | g/dL | [facility] | | | PLASMA | | | MEDICAL | | | (LAB) | | | CENTER - | | | | | | [place] | | + +-------+ + + + | CALCIUM, | 9.2 | mg/dL | [facility] | | | PLASMA | | | MEDICAL | | | (LAB) | | | CENTER - | | | | | | [place] | | + +-------+ + + + | BILIRUBIN | 0.3 | Transcutaneous | [facility] | | | TOTAL | | Bilirubinometer | MEDICAL | | | | | | CENTER - | | | | | | [place] | | + +-------+ + + + | ALK PHOS | 72 | U/L | [facility] | | | | | | MEDICAL | | | | | | CENTER - | | | | | | [place] | | + +-------+ + + + | AST(SGOT) | 10 | U/L | [facility] | | | | | | MEDICAL | | | | | | CENTER - | | | | | | [place] | | + +-------+ + + + | SODIUM, | 141 | mmol/L | [facility] | | | PLASMA | | | MEDICAL | | | (LAB) | | | CENTER - | | | | | | [place] | | + +-------+ + + + | POTASSIUM, | 4.4 | mmol/L | [facility] | | | PLASMA | | | MEDICAL | | | (LAB) | | | CENTER - | | | | | | [place] | | + +-------+ + + + | CHLORIDE, | 107 | mmol/L | [facility] | | | PLASMA | | | MEDICAL | | | (LAB) | | | CENTER - | | | | | | [place] | | + +-------+ + + + | TOTAL CO2, | 30 | mmol/L | [facility] | | | PLASMA | | | MEDICAL | | | (LAB) | | | CENTER - | | | | | | [place] | | + +-------+ + + + | ALT (SGPT) | 14 | U/L | [facility] | | | | | | MEDICAL | | | | | | CENTER - | | | | | | [place] | | + +-------+ + + + | SEDIMENTATI | 29 | mm/hr | [facility] | | | ON RATE | | [...] | + + + + + | [facility] | [address] | [place] [address] | | | [facility] - [place] | | | | + + + + + documented in this encounter Visit Diagnoses Not on filedocumented in this encounter"
--- OUTSIDE RECORDS SUMMARY | ~2020-04-27 | XMS | Encounter Summary ---
Demographics + + + | Address | [address] | | | [place] [address] | + + + | Home Phone [...] Providers + +------+ + | Care Food Management Aide Name | Role | Phone | [...] Pavilion | | | | | | [place], [place] | | | | | | [address] | | | | | | [phone] | | | +--------+ + + + [...] | + + + + + | [facility] | [address] | [place] [address] | | | LABORATORY | | | [...] + + + + | [facility] DEPARTMENT OF | [address] [facility] [address] | [place] [address] | | | PATHOLOGY | [address] | | | + + + + + | [facility] DEPARTMENT OF | [address] [facility] | [place] [address] | | | PATHOLOGY | [address] [...] + | [facility] | [address] | [place] [address] | | | PATHOLOGY | [address] | | | + + + + + | [facility] | [facility] [address] | [place] [address] | | | PATHOLOGY | [address] [...] DEPARTMENT OF | [address] | [place] [address] | | | PATHOLOGY | [address] | | | + + + + + | [facility] | [address] | [place] [address] | | | PATHOLOGY | [address] [...] Marybeth, | | | | | | Weight Loss Centre Manager, | | | | | | attime [...] | + + + + + | [facility] | [address] | [place] [address] | | | LABORATORY | | | [...] + + + + | [facility] DEPARTMENT OF | [address] | [place] [address] | | | PATHOLOGY | [address] | | | + + + + + | [facility] DEPARTMENT OF | [address] | [place] [address] | | | PATHOLOGY | [address] [...] + + + + | [facility] DEPARTMENT OF | [address] [facility] [address] | [place] [address] | | | PATHOLOGY | [address] | | | + + + + + | [facility] DEPARTMENT OF | [address] [facility] [address] | [place] [address] | | | PATHOLOGY | [address] [...] + + + + | [facility] DEPARTMENT OF | [address] [facility] | [place] [address] | | | PATHOLOGY | [address] | | | + + + + + | [facility] DEPARTMENT OF | [address] [facility] [address] | [place] [address] | | | PATHOLOGY | [address] [...] | + + + + + | [facility] | [address] | [place] [address] | | | LABORATORY | | | [...] [facility] | [address] | [place] [address] | | | PATHOLOGY | [address] | | | + + + + + | [facility] | [address] [address] | [place] [address] | | | PATHOLOGY | [address] [...] | + + + + + | [facility] DEPARTMENT OF | [address] | [place] [address] | | | PATHOLOGY | [address] | | | + + + + + | [facility] DEPARTMENT OF | [address] | [place] [address] | | | PATHOLOGY | [address] [...] | [facility] | [address] | [place] [address] | | | PATHOLOGY | [address] | | | + + + + + | [facility] DEPARTMENT OF | [facility] | [place] [address] | | | PATHOLOGY | [address] [...] + + + | [facility] | [address] | [place] [address] | | | LABORATORY | | | [...] | [facility] | [address] | [place] [address] | | | PATHOLOGY | [address] | | | + + + + + | [facility] DEPARTMENT OF | [address] [facility] [address] | [place] [address] | | | PATHOLOGY | [address] [...] + + | [facility] DEPARTMENT OF | [address] | [place] [address] | | | PATHOLOGY | [address] | | | + + + + + | [facility] | [address] | [place] [address] | | | PATHOLOGY | [address] [...] PRIMARY | | | | | | CRIMINAL JUSTICE DEPARTMENT CHAIR: Joao Wilde | | | | | [...] | | | | | aspirated. A12 Armenian | | | | | | multi [...] + +---------+ + + | [facility] DEPARTMENT OF | | | [...] + +---------+ + + | [facility] DEPARTMENT OF | | | [...] + + + | [facility] | [address] | [place] [address] | | | LABORATORY | | | [...] + + + + | [facility] DEPARTMENT OF | [address] | [place] [address] | | | PATHOLOGY | [address] | | | + + + + + | [place] DEPARTMENT OF | [address] | [place] [address] | | | PATHOLOGY | [address] [...] (L) | 7.4 - 10.4 fL | [facility] | | | | | [...] + + + + | [facility] DEPARTMENT OF | [address] [facility] | [place] [address] | | | PATHOLOGY | [address] | | | + + + + + | [facility] DEPARTMENT OF | [address] [facility] | [place] [address] | | | PATHOLOGY | [address] [...] + + + + | [facility] DEPARTMENT OF | [address] | [place] [address] | | | PATHOLOGY | [address] | | | + + + + + | [place] DEPARTMENT OF | [address] | [place] [address] | | | PATHOLOGY | [address] [...] + | [facility] | [facility] | [place] [address] | | | PATHOLOGY | [address] | | | + + + + + | [facility] DEPARTMENT OF | [address] [facility] | [place] [address] | | | PATHOLOGY | [address] [...] + +---------+ + + | [facility] DEPARTMENT OF | | | [...] | [facility] | [address] [facility] [address] | [place] [address] | | | PATHOLOGY | [address] | | | + + + + + | [facility] | [address] [facility] | [place] [address] | | | PATHOLOGY | [address] [...] DEPARTMENT OF | [address] | [place] [address] | | | PATHOLOGY | [address] | | | + + + + + | [facility] DEPARTMENT OF | [address] | [place] [address] | | | PATHOLOGY | [address] [...] + | [facility] | [address] | [place] [address] | | | PATHOLOGY | [address] | | | + + + + + | [facility] | [address] | [place] [address] | | | PATHOLOGY | [address] [...] + + + | [facility] | [address] | [place] [address] | | | LABORATORY | | | | + + + + + documented in this encounter Visit Diagnoses Not on filedocumented in this encounter"
--- OUTSIDE RECORDS SUMMARY | ~2020-04-27 | XMS | Encounter Summary ---
Demographics + + + | Address | [address] | | | [place] [address] | + + + | Home Phone [...] Team Providers + +------+ + | Care Slurry Tank Operator Name | Role | Phone | [...] | [facility] | MEGAN Reddy [address] | | | | | [address] | [address] | | | | | Loop Physician's | [place], [place] | | | | | [place], 3rd floor | [address] | | | | | [place], [place] | [phone] | | | | | [address] | | | | | | [phone] | | | +--------+ + + + [...] [address] | [facility] | [phone] | [facility] | | [address] | | + + + + + | [facility] | [address] | [facility] | | | [facility] | | [address] | | + + + + + [...] [address] | [facility] | [phone] | | [facility] | | [address] | | + + + + + | [facility] | [address] | [facility] | | | [facility] | | [address] | | + + + + + documented in this encounter Visit Diagnoses Not on filedocumented in this encounter"
--- OUTSIDE RECORDS SUMMARY | ~2020-04-27 | XMS | Encounter Summary ---
Demographics + + + | Address | [address] | | | [place] [address] | + + + | Home Phone [...] Providers + +------+ + | Care Hvac Installation Technician Name | Role | Phone | + +------+ + | Jaimie Monreal MD | PCP | | + +------+ + Encounter Details +--------+ + + + + | Date | Type | Department | Care Team | Description | +--------+ + + + + | 07/08/ | [facility] | [facility] | Jasper Medrano, | Left hip pain | | 2019 | Encounter | [address] | | | | | [address] | [place] | | | | | [place], [place] | [address] | | | | | [address] | | | | | | [phone] | | | +--------+ + + + [...] [place] | | | | | | [address] | | | | | | | [...] | | subsidence. However this is a dgsni-yl-cboqz prosthesis. Did not | | | seem to be any significant ostial lysis around either of the | | | components. There is evidence in the femur of previously removed | | | hardware. 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 The left hip shows severe huyh-dg-wkkj | | | arthritis without any evidence [...]
--- OUTSIDE RECORDS SUMMARY | ~2020-04-27 | XMS | Encounter Summary ---
Demographics + + + | Address | [address] | | | [place] [address] | + + + | Home Phone [...] | | | unspecified | | Rd [place], | | | | | whether | | [place] | | | | | generalized | | [address] | | | | | or | | Phone: | | | | | localized, | | [phone] | | | | | pelvic | | Fax: | | | | | region and | | [phone] | | | | | thigh Pain [...] | | | | Mailcode: [id number] | [place], [place] | internal joint | | | | Phys[facility]ilion | [address] | prosthesis (HCC) | | | | [place], [place] | [phone] | (Primary Dx) | | | | [address] | | | | | | [phone] | | | +--------+---------+ + + + [...] has been indic ated for [facility] in [place], but they want the ok from [place]. [...] prn f/u here as she lives near [place]. d ocumented in this encounter Plan of [...]
--- OUTSIDE RECORDS SUMMARY | ~2020-04-27 | XMS | Encounter Summary ---
Demographics + + + | Address | [address] | | | [place] [address] | + + + | Home Phone [...] + +------+ + | Care Blood Bank Calendar Control Clerk Name | Role | Phone [...] [facility] | | | | | | [address] | | | | | | Loop Physician's | | | | | | [place], [facility] Floor | | | | | | [place], [place] | | | | | | [address] | | | | | | [phone] | | | +--------+ + + + [...] + + + +---------+ + + | [place]-3 Fatty | Take by mouth. | | [...]
--- OUTSIDE RECORDS SUMMARY | ~2020-04-27 | XMS | Encounter Summary ---
Demographics + + + | Address | [address] | | | [place] [address] | + + + | Home Phone [...] Team Providers + +------+ + | Care Tissue Technologist Name | Role | Phone | [...] Notes Interface, Energy Scheduler In - 04/28/2005 6:17 PM PDTClinic Date: [...] presence of her friend and my physician furniture removalist's assistant and resident here in the Orthopedic [...] as soon as possible. Lloyd Garcia M.D. Associate Professor Of Engineering of Orthopedics and Rehabilitation / [id number] / [id number] / [id number] / [id number] Tdocumented in this encounter Plan of Treatment Not on filedocumented as of this encounter Visit Diagnoses Not on filedocumented in this encounter
--- OUTSIDE RECORDS SUMMARY | ~2020-04-27 | XMS | Encounter Summary ---
Demographics + + + | Address | [address] | | | [place] [address] | + + + | Home Phone [...] Team Providers + +------+ + | Care Soldering Machine Tender Name | Role | Phone [...] [place] | | | | | | [place], [place] | | | | | | [address] | | | | | | [phone] | | | +--------+---------+ + + + [...] fairly well controlled at this point with [place]. She has been wbat and is overall [...]
--- OUTSIDE RECORDS SUMMARY | ~2020-04-27 | XMS | Encounter Summary ---
Demographics + + + | Address | [address] | | | [...] Providers + +------+ + | Care Fire Behavior Analyst Name | Role | Phone | [...] Pavilion | | | | | | [place], [place] | | | | | | [address] | | | | | | [phone] | | | +--------+ + + + [...]
--- OUTSIDE RECORDS SUMMARY | ~2020-04-27 | XMS | Encounter Summary ---
Demographics + + + | Address | [address] | | | [place] [address] | + + + | Home Phone [...] Providers + +------+ + | Care Enrollment Representative Name | Role | Phone | [...] | | | | | [place] | | | | | | [place] [address] | | | | | | [phone] | | +--------+ + + + + [...] by | | | | | | [facility] | | | | | | [facility]. | | | | + + + + + + + + | Specimen | + + | | + + + + + + + | Performing | Address | City/State/Zipcode | Phone Number | | Organization | | | | + + + + + | [facility] | [address] | [place] [address] | | | LABORATORY | | | | + + + + + documented in this encounter Visit Diagnoses Not on filedocumented in this encounter"
--- OUTSIDE RECORDS SUMMARY | ~2020-04-27 | XMS | Encounter Summary ---
Demographics + + + | Address | [address] | | | [place] [address] | + + + | Home Phone [...] as of this encounter Progress Notes Interface, Production Illustrator In - 04/28/2005 7:30 PM PDTClinic Date: [...] signs of recurrent infection. Lloyd Garcia M.D. Storeroom Clerk Orthopedics and Rehabilitation / [id number] / [id number] / [id number] / [id number] cc: Ninfa Guillen M.D. [address] [place], [place] [address]Byegtlekthtcey signed by Interface, Production Illustrator In at 04/28/2005 7:3 0 PM PDTdocumented in this encounter Plan of Treatment Not on filedocumented as of this encounter Visit Diagnoses Not on filedocumented in this encounter"
--- OUTSIDE RECORDS SUMMARY | ~2020-04-27 | XMS | Encounter Summary ---
Demographics + + + | Address | [address] | | | [place] [address] | + + + | Home Phone [...] Providers + +------+ + | Care President Practicing Urologist Name | Role | Phone | + [...] | | | | due to | [place] | | | | | unspecified | [address] | [address] | | | | | device, | Phone: | Phone: | | | | | implant, and | [phone] | [phone] | | | | | graft | Fax: | Fax: | | | | | | [phone] | [phone] | +--------+--------+ + + + + Encounter [...] | | | | [address] | [place] [address] | internal joint | | | | Physician's | [phone] | prosthesis (HCC) | | | | Pavilion, 4th floor | | (Primary Dx) | | | | [place], [place] | | | | | | [address] | | | | | | [phone] | | | +--------+---------+ + + + [...] CLINIC FOLLOW UP Referrring Physician: TYRONE COLBY [facility] Orthopedics [address] [place] [address] Primary Care Physician: [address] [address] Ms. Galdamez presents to Infectious Diseases Clinic [...] procedure. Indications : Staphylococcus Aureus Joint Infection [place]-3 Fatty Acids-Vitamin E (FISH OIL) 1,000 mg [...] above discussion. ALBINO TERESA MD INFECTIOUS DISEASES [address] [place] [address] Mailcode: L608 [address] [address] documented in this e ncounter [...]
--- OUTSIDE RECORDS SUMMARY | ~2020-04-27 | XMS | Encounter Summary ---
Demographics + + + | Address | [address] | | | [place] [address] | + + + | Home Phone | | + + + | Preferred Language | Unknown | + + + | Marital Status | | + + + | Tenriism Affiliation | [id number] | + + + | Race | Unknown | + + + | Ethnic Group | Unknown | + + + Author + + + | Author | [facility] | | | and [place] | + + + | Organization | [facility] | | [...] Providers + +------+ + | Care Hand Woven Carpet And Rug Mender Name | Role | Phone | + [...] + + | 02/22/ | Office | [facility] | Ladarius Martínez PA | MAMADOU on CPAP (Primary | | 2016 | Visit | SLEEP DISORDER [address] | [address] | Dx) | | | | [address] [place] | [place] | | | | | [place] [address] | [address] | | | | | [phone] | | | +--------+---------+ + + + [...] mask obtained from: [facility] [place] Pressure: 9-16 cm Median: 12.2 cm 95%: [...] all". 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 Jac jackson has a for a variety of reasons/excuses for not using CPAP. [facility] a [facility] she was told that her [...] a prescription to [facility] [place] for a nocturnal pulse oxym etry study [...] [place] | | | | | | [address] | | | | | | | | +--------+---------+ + + + documented as of this encounter Visit Diagnoses + + | Diagnosis | + + | MAMADOU on CPAP - Primary Obstructive sleep apnea (adult) (pediatric) | + + documented in this encounter
--- OUTSIDE RECORDS SUMMARY | ~2020-04-27 | XMS | Encounter Summary ---
Demographics + + + | Address | [address] | | | [place] [address] | + + + | Home Phone [...] Team Providers + +------+ + | Care Porter Marina Name | Role | Phone | + [...] + + | 07/20/ | Telephone | [facility] | Jasper Medrano, | Referral Question | | 2018 | | [address] | [address] | (nutrition referral | | | | [place], [place] | [place] | question) | | | | [address] | [phone] | | | | | [phone] | | | +--------+ + + + [...] Miscellaneous Notes Telephone Encounter - Kina Hendrix Packing Line Worker - 07/20/2019 4:20 PM PDTPatient called wanting to know if we had a referral for nutrition. I Tried calling patient to answer her question regarding the Nutrition Referral, but there was no answer, so I left a VM. Patient refused Nutritional Service & referral got closed. Patient can [place] [facility] at .Electronically signed by Kina Hendrix Packing Line Worker at 07/01 4:51 PM PDTTelephone Encounter - Deb Terrazas - 07/20/2019 2:34 PM PDTAnswe ring Service Message from 07/20/19 @ 2:25pm: I would like to know if you have a referral for a water conservation specialist. Please call back. documented in this encounter [...] [place] | | | | | | [id number] | | | | | | | | +--------+---------+ + + + documented as of this encounter Visit Diagnoses Not on filedocumented in this encounter"
--- OUTSIDE RECORDS SUMMARY | ~2020-04-27 | XMS | Encounter Summary ---
Demographics + + + | Address | [address] | | | [place] [address] | + + + | Home Phone [...] Providers + +------+ + | Care Nut Sifter Name | Role | Phone | [...] | | | | due to | [place] | | | | | unspecified | [address] | [address] | | | | | device, | Phone: | Phone: | | | | | implant, and | [phone] | [phone] | | | | | graft | Fax: | Fax: | | | | | | [phone] | [phone] | +--------+--------+ + + + + Encounter [...] | | | [address] | [facility] [address] | (Primary Dx) | | | | Loop Physician's | [place], [place] | | | | | Terrence, 3rd floor | [address] | | | | | [place], [place] | [phone] | | | | | [address] | | | | | | [phone] | | | +--------+---------+ + + + [...] CLINIC FOLLOW UP Primary Care Physician: Carlos [address] [address] Ms. Galdamez presents to Infectious Diseases Clinic [...] 18, a nd was therefore admitted to [facility] out of concern for R hip infection. [...] discharged in stable condition on 10/22/2010 to [facility] with OPAT & Orthopedic follow-up planned in 2 weeks ti nm. Interim History obtained 11/17/2010: Ms. Galdamez presents [...] R hip incision has healed very well. [place] were removed locally, and there has been [...] as well as in shoes and socks. [place]-3 Fatty Acids-Vitamin E (FISH OIL) 1,000 mg [...] She will travel to her PCP in [place] in 1 weeks time for another PICC [...] a nd follow-up planning. Carolina Putnam PA-C [facility] Department of Infectious Disease Outpatient IV Antibiotic Therapy Clinic (OPAT) Pager ID: [phone] Mail Code [id number] [place] [address] documented in th is encounter Plan of [...] [facility] | [address] | [place] [address] | | | PATHOLOGY | [address] [...] At | + + + | RLB ([facility] [facility]) | [facility] | | [facility] [address] | REGIONAL | | [place] [address] | LABORATORY | + + + + + + + + | Performing | Address | City/State/Zipcode | Phone Number | | Organization | | | | + + + + + | [facility] | [address] | [place] [address] | | | LABORATORY | | | [...] + + | [facility] DEPARTMENT OF | [address] | [place] [address] | | | PATHOLOGY | [address] [...] | | | DEPARTMENT | | | VINCENTIAN | | | OF | | | [...] DEPARTMENT OF | [address] | [place] [address] | | | PATHOLOGY | [address] [...] | [facility] | [address] | [place] [address] | | | PATHOLOGY | [address] | | | + + + + + documented in this encounter Visit Diagnoses + + | Diagnosis | + + | 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
--- OUTSIDE RECORDS SUMMARY | ~2020-04-27 | XMS | Encounter Summary ---
Demographics + + + | Address | [address] | | | [place] [address] | + + + | Home Phone [...] Procedures | Pankaj Bergman | Roxann Ayala [facility] | | | | | CT INJ | Roxann Ayala [facility], | | | | | SACROILIAC | [place], [place] | 10th Floor | | | | | JOINT | [address] | [place], [place] | | | | | W/NEEDLE | Phone: | [address] | | | | | PLCMT | [phone] | Phone: | | | | | | Fax: | [phone] | | | | | | [phone] | Fax: | | | | | | | [phone] | +--------+--------+ + + + + Reason [...] | | | | | | | [address] | | | | | | | [address] | | | | | | | [place], | | | | | | | [place] | | | | | | | [address] | | | | | | | Phone: | | | | | | | [phone] | | | | | | | Fax: | | | | | | | [phone] | +--------+--------+ + + + + Encounter [...] | | | | Mailcode: [id number] | [place], [place] | | | | | Physician's [address] | [address] | | | | | [place], [place] | [phone] | | | | | [address] | | | | | | [phone] | | | +--------+---------+ + + + [...] SACROILIAC JOINT W/NEEDLE PLCMT (10/12/2009 10:08 AM [facility]) + + + + + + [...] | | | | | the senior administrator support. | | | | | | Bilingual Medical Assistant imaging was | | | | | [...]
--- OUTSIDE RECORDS SUMMARY | ~2020-04-27 | XMS | Encounter Summary ---
Demographics + + + | Address | [address] | | | [place] [address] | + + + | Home Phone [...] Team Providers + +------+ + | Care Compensation Manager Name | Role | Phone | [...] of this encounter Progress Notes Interface, Traffic Survey Technician In - 06/19/2006 1:01 AM PDT [place] [facility] [place] [address] [address], [place] [address] FAX Department of Orthopaedics, [employer] [id number] September 16, 2001 Kalyan Wu M.D. Department of Orthopedics and Rehabilitation [facility] RE: SHELBY GALDAMEZ MR #: [id number] DOS: 09/16/2001 Dear Nasir: I am referring [...] contact me directly. Sincerely, Lloyd Garcia M.D. Director Of Business Systems Orthopedics and Rehabilitation / [id number] / [id number] / [id number] / [id number] C: 10/02/2001 [facility] cc: Helio Mann M.D. P.OJuan Jose [address] [id number] signed by Interface, Traffic Survey Technician In at 06/19/2006 1: 01 AM PDTdocumented in this encounter Plan of Treatment Not on filedocumented as of this encounter Visit Diagnoses Not on filedocumented in this encounter"
--- OUTSIDE RECORDS SUMMARY | ~2020-04-27 | XMS | Encounter Summary ---
Demographics + + + | Address | [address] | | | [place] [address] | + + + | Home Phone [...] Team Providers + +------+ + | Care Captain Waiter/Waitress Name | Role | Phone | + +------+ + | Eric Krishna MD | PCP | | + +------+ + Encounter Details +--------+ + + + + | Date | Type | Department | Care Team | Description | +--------+ + + + + | 10/18/ | Hospital | [facility] | Conversion | Pain | | 2018 | Encounter | CONVERSION DEP 888 | Transaction, | | | | | ARNIE LYLES | Provider Unknown | | | | | MITCH JEFFREY | [phone] | | | | | [address] | | | | | | [phone] | | | +--------+ + + + [...] [place] | | | | | | [address] | | | | | | | [...]
--- OUTSIDE RECORDS SUMMARY | ~2020-04-27 | XMS | Encounter Summary ---
Demographics + + + | Address | [address] | | | [place] [address] | + + + | Home Phone [...] Team Providers + +------+ + | Care Nurse'S Companion Name | Role | Phone | + +------+ + | Marta Jenkins PAPER INSPECTOR | PCP | | + +------+ + Encounter Details +--------+ + + + + | Date | Type | Department | Care Team | Description | +--------+ + + + + | 11/18/ | Abstract | Digestive Health | Clinic, Surgery | | | 2019 | | Center at [facility] [address] | | | | | | [address] [facility] | | | | | | for Health and | | | | | | Healing, Building 2 | | | | | | [place], [place] | | | | | | [address] | | | | | | [phone] | | | +--------+ + + + [...]
--- OUTSIDE RECORDS SUMMARY | ~2020-04-27 | XMS | Encounter Summary ---
Demographics + + + | Address | [address] | | | [place] [address] | + + + | Home Phone [...] Team Providers + +------+ + | Care Waiter/Waitress Club Name | Role | Phone | + [...] Pavilion | | | | | | [place], [place] | | | | | | [address] | | | | | | [phone] | | | +--------+ + + + [...] [facility] DEPARTMENT | [address] [facility] | [place] [address] | | | PATHOLOGY | [address] | | | + + + + + | [facility] | [address] [place] [address] | [place] [address] | | | PATHOLOGY | [address] [...] DEPARTMENT OF | [address] | [place] [address] | | | PATHOLOGY | [address] | | | + + + + + | [facility] | [address] | [place] [address] | | | PATHOLOGY | [address] | | | + + + + + documented in this encounter Visit Diagnoses Not on filedocumented in this encounter"
--- OUTSIDE RECORDS SUMMARY | ~2020-04-27 | XMS | Encounter Summary ---
Demographics + + + | Address | [address] | | | [place] [address] | + + + | Home Phone [...] Providers + +------+ + | Care Event Marketing Intern Name | Role | Phone | + +------+ + | Eric Krishna MD | PCP | | + +------+ + Encounter Details +--------+ + + + + | Date | Type | Department | Care Team | Description | +--------+ + + + + | 12/04/ | Hospital | [facility] | Conversion | Decreased range of | | 2018 | Encounter | CENTER OPI XRAY | Transaction, | motion of hip; Hip | | | | [address] | Provider Unknown | pain, chronic, left | | | | [address] [place], [place] | [phone] | | | | | [address] | | | | | | [phone] | Carmine Frost S, | | | | | | MASTER COOK [address] [place] [address] | | | | | | [address] [place], | | | | | | [place] [address] | | | | | | [phone] | | | | | | | [...] [place] | | | | | | [address] | | | | | | | [...]
--- OUTSIDE RECORDS SUMMARY | ~2020-04-27 | XMS | Encounter Summary ---
Demographics + + + | Address | [address] | | | [place] [address] | + + + | Home Phone [...] Team Providers + +------+ + | Care Spinner Hand Name | Role | Phone | [...] | | | Surgery [address] | [place], [place] | | | | | [address] | [address] | | | | | Mailcode: [id number] | [phone] | | | | | Physician's Pavilion | | | | | | [place], [place] | | | | | | [address] | | | | | | [phone] | | | +--------+ + + + [...] + + + | [facility] | [address] | [place] [address] | | | LABORATORY | | | [...] [facility] | [address] | [place] [address] | | | PATHOLOGY | [address] | | | + + + + + | [facility] | [address] | [place] [address] | | | PATHOLOGY | [address] [...] DEPARTMENT OF | [address] | [place] [address] | | | PATHOLOGY | [address] | | | + + + + + | [facility] DEPARTMENT OF | [address] | [place] [address] | | | PATHOLOGY | [...] [facility] DEPARTMENT OF | [address] | [place] [address] | | | PATHOLOGY | [address] | | | + + + + + | [facility] DEPARTMENT OF | [address] | [place] [address] | | | PATHOLOGY | [address] | | | + + + + + documented in this encounter Visit Diagnoses Not on filedocumented in this encounter
--- OUTSIDE RECORDS SUMMARY | ~2020-04-27 | XMS | Encounter Summary ---
Demographics + + + | Address | [address] | | | [place] [address] | + + + | Home Phone [...] Providers + +------+ + | Care Manager Ent Name | Role | Phone | + [...] + + | 07/31/ | Telephone | [facility] | Xiang Sepulveda, | Other (Appointment | | 2019 | | NEUROSCIENCE CENTER | DO [address] | note ) | | | | [address] | [place], [place] | | | | | [address] | [address] | | | | | [place], [place] | | | | | | [address] | | | | | | [phone] | | | +--------+ + + + [...] Miscellaneous Notes Telephone Encounter - Melyssa Ott, Personnel Interviewer - 07/31/2019 11:07 AM Yuly RHODES called patient and left a voicemail to return my call. elephone Encounter - Mihaela Fulton - 07/31/2019 10:27 AM PDTShelby, is calling regarding Other (Appointment not e ) and would like a call back. Additional Call Details: Requesting note to be faxed to [phone] indicating that arabella ross did attend appointment 07/29/19 so she can get her mileage reimbursed. If this is a symptom based call, was patient offered triage? Not Applicable If this is a symptom based call and you were unable to immediately transfer the call to a yuly liz u.s. senator was caller made aware that if at [...] [place] | | | | | | [address] | | | | | | | | +--------+---------+ + + + documented as of this encounter Visit Diagnoses Not on filedocumented in this encounter"
--- OUTSIDE RECORDS SUMMARY | ~2020-04-27 | XMS | Encounter Summary ---
Demographics + + + | Address | [address] | | | [place] [address] | + + + | Home Phone [...] Providers + +------+ + | Care Payroll Coordinator Name | Role | Phone | + +------+ + | Marta Jenkins BRAKE REPAIR SUPERVISOR | PCP | | + +------+ + Encounter Details +--------+ + + + + | Date | Type | Department | Care Team | Description | +--------+ + + + + | 11/19/ | Documentati | Digestive Health | Wanda López ACNP | | | 2019 | on | Center at [facility] [address] | [address] | | | | | [facility] | Roxann Ayala [facility] | | | | | [facility] Health and | [place] [address] | | | | | Healing, Building 2 | [phone] | | | | | [place], [place] | | | | | | [address] | | | | | | [phone] | | | +--------+ + + + [...]
--- OUTSIDE RECORDS SUMMARY | ~2020-04-27 | XMS | Encounter Summary ---
Demographics + + + | Address | [address] | | | [place] [address] | + + + | Home Phone [...] + | Casandra Smith | ROBERTO | [place] | | + + + + + Care Team Providers + +------+ + | Care Lift Operator Name | Role | Phone | [...] | | | Osteoarthros | | [address] [facility] | | | | | is, | RICHARD | [address] | | | | | unspecified | [facility] | [address] [place], | | | | | whether | CLINIC [address] | [place] | | | | | generalized | [address] | [address] | | | | | or | [place], | Phone: | | | | | localized, | [place] [address] | [phone] | | | | | pelvic | Phone: | Fax: | | | | | region and | [phone] | [phone] | | | | | thigh | Fax: | | | | | | | [phone] | | +--------+--------+ + + + + [...] [address] | | | | | | [place], [place] | | | | | | [address] | | | | | | [phone] | | | +--------+---------+ + + + [...] agree with the note. TYRONE COLBY MD [facility] ORTHOPAEDICS & REHABILITATION [address] [place] [address] Mailcode: [id number] [place] [address] esfaye Saenz PA-C - 01/20/2009 [...] CRP pending. Offered to refer her to [facility] pain clinic if she would [...] DEPARTMENT OF | [address] | [place] [address] | | | PATHOLOGY | [address] | | | + + + + + | [facility] DEPARTMENT OF | [address] | [place] [address] | | | PATHOLOGY | [address] | | | + + + + + SEDIMENTATION RATE (01/20/2009 10:02 AM PDT) + +-------+ + + + | Component | Value | Ref Range | Performed | Pathologist | | | | | At | Signature | + +-------+ + + + | SEDIMENTATI | 16 | <21 mm/hr | [facility] | | | ON RATE [...] [facility] | [address] [facility] | [place] [address] | | | PATHOLOGY | [address] | | | + + + + + | [facility] | [facility] | [place] [address] | | | PATHOLOGY | [address] [...] Change effective 10/26/08 | | | [facility] | | | [place] [address] | | | [place] [address] | | + + + + + + + + | Performing | Address | City/State/Zipcode | Phone Number | | Organization | | | | + + + + + | [facility] | [address] | [place] [address] | | | LABORATORY | | | | + + + + + documented in this encounter Visit Diagnoses + + | Diagnosis | + + | Hip pain Pain in joint, pelvic region and thigh | + + | Hip replacement Hip joint replacement by other means | + + documented in this encounter"
--- OUTSIDE RECORDS SUMMARY | ~2020-04-27 | XMS | Encounter Summary ---
Demographics + + + | Address | [address] | | | [place] [address] | + + + | Home Phone [...] Providers + +------+ + | Care Surveillance Inspector Name | Role | Phone | [...] + + | 01/20/ | Telephone | [facility] | Xiang Sepulveda, | Appointment | | 2020 | | [facility] | DO [address] | | | | | [address] | [place], [place] | | | | | [address] | [address] | | | | | [place], [place] | | | | | | [address] | | | | | | [phone] | | | +--------+ + + + [...] Miscellaneous Notes Telephone Encounter - Antonella Sprague, Alterations Expert - 01/21/2020 2:26 PM PDTCalled and left [...] [place] | | | | | | [address] | | | | | | | | +--------+---------+ + + + documented as of this encounter Visit Diagnoses Not on filedocumented in this encounter"
--- OUTSIDE RECORDS SUMMARY | ~2020-04-27 | XMS | Encounter Summary ---
Demographics + + + | Address | [address] | | | [place] [address] | + + + | Home Phone [...] | + +------+ + | Marta Jenkins SHEET METAL LAYOUT MECHANIC | PCP | | + +------+ [...] | Jamie Mailcode: [id number] [place], | | | | | [place], [place] | [place] [address] | | | | | [address] | | | | | | [phone] | | | +--------+ + + + [...] [place] DEPARTMENT | [address] | [place] [address] | | | PATHOLOGY | [address] | | | + + + + + | [facility] DEPARTMENT OF | [address] | [place] [address] | | | PATHOLOGY | [address] [...] | [facility] | [address] | [place] [address] | | | PATHOLOGY | [address] | | | + + + + + | [facility] | [address] [place] [address] [address] | [place] [address] | | | PATHOLOGY | [address] [...] OF | [address] | [place] [address] | | | PATHOLOGY | [address] | | | + + + + + | [facility] DEPARTMENT OF | [address] | [place] [address] | | | PATHOLOGY | [address] [...]
--- OUTSIDE RECORDS SUMMARY | ~2020-04-27 | XMS | Encounter Summary ---
Demographics + + + | Address | [address] | | | [place] [address] | + + + | Home Phone [...] Team Providers + +------+ + | Care Micro Lab Analyst Name | Role | Phone | + +------+ + PCP | Unavailable | + +------+ + Encounter Details +--------+ + + + + | Date | Type | Department | Care Team | Description | +--------+ + + + + | 01/29/ | Hospital | [facility] | Helio Ahn | | | 2000 | Encounter | MED CTR SLEEP | MD Candie [address] | | | | | CENTER [address] | [address] [place] | | | | | [place] | [place] [address] | | | | | [address] | [phone] | | | | | [phone] | | | +--------+ + + + [...] [place] | | | | | | [address] | | | | | | | | +--------+---------+ + + + documented as of this encounter Visit Diagnoses Not on filedocumented in this encounter"
--- OUTSIDE RECORDS SUMMARY | ~2020-04-27 | XMS | Encounter Summary ---
Demographics + + + | Address | [address] | | | [place] [address] | + + + | Home Phone [...] Providers + +------+ + | Care Business Enterprise Officer Name | Role | Phone | [...] of this encounter Progress Notes Interface, Business Education Teacher In - 08/20/2006 3:01 AM PSTCLINIC DATE: [...] primary care provider. Alpa Ritter LPN / [id number] / [id number] / [id number] / Tdocumented in this encounter Plan of Treatment Not on filedocumented as of this encounter Visit Diagnoses Not on filedocumented in this encounter"
--- OUTSIDE RECORDS SUMMARY | ~2020-04-27 | XMS | Encounter Summary ---
Demographics + + + | Address | [address] | | | [place] [address] | + + + | Home Phone [...] as of this encounter Progress Notes Interface, Die Barber In - 09/08/2006 1:11 AM PSTCLINIC DATE: [...] evaluation. Lloyd Garcia MD / [id number] / [id number] / [id number] / cc: Matthew Garcia MD [address] [place], [place] [id number] signed by Interface, Die Barber In at 09/08/2006 1:11 AM PSTdocumented in this encounter Plan of Treatment Not on filedocumented as of this encounter Visit Diagnoses Not on filedocumented in this encounter"
--- OUTSIDE RECORDS SUMMARY | ~2020-04-27 | XMS | Encounter Summary ---
Demographics + + + | Address | [address] | | | [place] [address] | + + + | Home Phone [...] | + + +---------+ + | Kristel Tereas | ECON | Unknown | | + + +---------+ + Care Team Providers + +------+ + | Care Program Management Intern Name | Role | Phone | [...] + + | 09/24/ | Refill | [facility] | Xiang Sepulveda, | Medication Refill | | 2019 | | [facility] | DO [address] | | | | | [address] | [place], [place] | | | | | [address] | [address] | | | | | [place], [place] | | | | | | [address] | | | | | | [phone] | | | +--------+--------+ + + + [...] Miscellaneous Notes Telephone Encounter - Antonella Sprague Certified Driver Examiner - 09/24/2019 10:23 AM PSTKevyn e given to Dr. Sepulveda. Electronically signed by Antonella Sprague Certified Driver Examiner at 10:23 AM PSTdocumented in this encounter Plan of Treatment +--------+---------+ + + + | Date | Type | Specialty | Care Team | Description | +--------+---------+ + + + | 05/23/ | Office | Pain Medicine | Xiang Sepulveda, | | | 2019 | Visit | | DO [address] | | | | | | [place] | | | | | | [id number] | | | | | | | [...]
--- OUTSIDE RECORDS SUMMARY | ~2020-04-27 | XMS | Encounter Summary ---
Demographics + + + | Address | [address] | | | [place] [address] | + + + | Home Phone [...] Team Providers + +------+ + | Care Suction Drum Drier Operator Name | Role | Phone [...] | Diseases at [facility] | MEGAN Reddy [address] | | | | | [address] | [address] | | | | | Loop Physician's | [place], [place] | | | | | [address]rence, 3rd floor | [address] | | | | | [place], [place] | [phone] | | | | | [address] | | | | | | [phone] | | | +--------+ + + + [...]
--- OUTSIDE RECORDS SUMMARY | ~2020-04-27 | XMS | Encounter Summary ---
Demographics + + + | Address | [address] | | | [place] [address] | + + + | Home Phone [...] Team Providers + +------+ + | Care Device Sales Consultant Name | Role | Phone [...] of this encounter Progress Notes Interface, Speech Therapy Teacher In - 04/28/2005 10:57 PM PDTClinic [...] longer any fluid pocket. Lloyd Garcia M.D. Yarding And Folding Machine Operator, Orthopedics and Rehabilitation / [id number] / [id number] / [id number] / [id number] cc: Everett Ibrahim MD [address] [place], [place] [id number] signed by Interface, Speech Therapy Teacher In at 04/28/2005 10:57 PM PDTdocumented in this encounter Plan of Treatment Not on filedocumented as of this encounter Visit Diagnoses Not on filedocumented in this encounter"
--- OUTSIDE RECORDS SUMMARY | ~2020-04-27 | XMS | Clinical Summary ---
Demographics + + + | Address | [address] | | | [place] [address] | + + + | Home Phone [...] Team Providers + +------+ + | Care Ingot Header Name | Role | Phone | + +------+ + | JenkinsMarta jackson PHOTOGRAPHIC PROCESS ATTENDANT | PCP | | + +------+ + Source Comments LION is fully live on both [facility] and [facility] InPatient.[facility] Allergies + + + + + + [...] | | + + + +---------+------+------+-------+ | [place]-3 Fatty | Take by mouth. | | [...] | | | + +--------+ +--------+-------+---------+--------+ | COAT EXAMINER MEDICAID | COAT EXAMINER | xxxxxxxx | 06/01/20 | | | [...] gigi | | | 7 (Home) | [address] | + +--------+ +--------+ + + | Shelby [place] | Third | Self | [birth year] | | [address] | | | Democrat | | 1960 | [phone] | [address] [place] | | | Liabil | | | 7 (Home) | [address] | | | ity | | | | | + +--------+ +--------+ + + Advance Directives + + + + + | Type | Date Recorded | Patient | Explanation | | | | Dental Lab Technician | | + + + + + | Advance | | | | | Directives and | | | | | Living Will | | | | + + + + + | Power of | | | | | Castings Trimmer | | | | + + + [...]
--- OUTSIDE RECORDS SUMMARY | ~2020-04-27 | XMS | Encounter Summary ---
Demographics + + + | Address | [address] | | | [place] [address] | + + + | Home Phone [...] Providers + +------+ + | Care Art Specialist Name | Role | Phone | [...] W | | | | ON | [facility] 4th Floor [address] | | | | | [address] | Road [place], [place] | | | | | Mailcode: CH4S | [address] | | | | | [facility] | | | | | | and Healing, | | | | | | Building 1,4th Floor | | | | | | [place], [place] | | | | | | [address] | | | | | | [phone] | | | +--------+ + + + [...]
--- OUTSIDE RECORDS SUMMARY | ~2020-04-27 | XMS | Encounter Summary ---
Demographics + + + | Address | [address] | | | [place] [address] | + + + | Home Phone [...] Team Providers + +------+ + | Care Biology Adjunct Instructor Name | Role | Phone | [...] as of this encounter Progress Notes Interface, Pipe Installer In - 04/28/2006 3:06 AM PDTCLINIC DATE: 09/24/2002 ORTHOPEDIC CLINIC SUBJECTIVE: A 42-year-old obese female follows for right hip endstage degenerative joint disease. She returns to clinic today stating that her hip is bothering her again. Her last injection was 6 months ago in February 2002. It lasted approximately 5 months. She [facility]. She takes Celebrex, multivitamin, and uses [...] fluoroscopically-guided hip injections closer to home in [place], [place], and come here when she fails to respond to schedule her total hip replacement at that time. She seems to prefer [place] drive across [place] for her care. Lloyd Garcia M.D. Automatic Spreader Operator, Orthopedics and Rehabilitation / [id number] / [id number] / [id number] / [id number] cc: Ninfa Guillen M.D. [address] [place], [place] [address]Pmzqbimowfkahf signed by Interface, Pipe Installer In at 04/28/2006 3:0 6 AM PDTInterface, Pipe Installer In - 04/28/2006 3:06 AM PDTCLINIC DATE: [...] to return all the way to [facility] from [place], [place]. Shruti Manjarrez MD AM / [id number] / [id number] / [id number] / [id number] cc: Ninfa Guillen M.D. [address] [place], [place] [address]Alsrfdriynztdo signed by Interface, Pipe Installer In at 04/28/2006 3:0 6 AM PDTdocumented in this encounter Plan of Treatment Not on filedocumented as of this encounter Visit Diagnoses Not on filedocumented in this encounter"
--- OUTSIDE RECORDS SUMMARY | ~2020-04-27 | XMS | Encounter Summary ---
Demographics + + + | Address | [address] | | | [place] [address] | + + + | Home Phone [...] + +------+ + | Care Office Support Name | Role | Phone | [...] | | | | | | [place], | | | | | | | [place] | | | | | | | [address] | | | | | | | Phone: | | | | | | | [phone] | | | | | | | Fax: | | | | | | | [phone] | +--------+--------+ + + + + Encounter [...] | | arthroplasty) | | | | [place], [place] | | | | | | [address] | | | | | | [phone] | | | +--------+---------+ + + + [...] still well controlled at this point with [place]. She has been wbat and is overall [...] view Consult to rehabilitation physical therapy outside [facility] documented in this encounter Plan [...] Dr. | | | | | | MOSEH FLOWERS | | | | + + [...]
--- OUTSIDE RECORDS SUMMARY | ~2020-04-27 | XMS | Encounter Summary ---
Demographics + + + | Address | [address] | | | [place] [address] | + + + | Home Phone [...] Team Providers + +------+ + | Care Bingo Worker Name | Role | Phone | [...] | Transcriptions | + + | Interface, Date Night Sitter In - 02/27/2006 3:05 AM PDT Date: [...] | | Malcom GarciaRT/aceD: 09/14/2003T: 09/15/2003 9:10 [id number] | |bellberna. The proximal greater trochanter fragment [...] |RT/magalie | | | | A | |[id number] | + + documented in this encounter Visit Diagnoses Not on filedocumented in this encounter"
--- OUTSIDE RECORDS SUMMARY | ~2020-04-27 | XMS | Encounter Summary ---
Demographics + + + | Address | [address] | | | [place] [address] | + + + | Home Phone [...] Providers + +------+ + | Care Supervisor Anodizing Name | Role | Phone | + [...] Irwin | | | | | | [facility] | | | | | | Counseling [address] | | | | | | [address] [place], | | | | | | [place] [address] | | | | | | [phone] | | | | | | | [...] | | | | | | 09/25/2003 [id number] | | | | | | hours [...] + + + | [facility] | [address] | [place] [address] | | | LABORATORY | | | [...] | [facility] DEPARTMENT | [address] | [place] [address] | | | PATHOLOGY | [address] | | | + + + + + | [place] DEPARTMENT OF | [address] | [place] [address] | | | PATHOLOGY | [address] [...] + | [facility] | [address] | [place] [address] | | | PATHOLOGY | [address] | | | + + + + + | [facility] | [address] | [place] [address] | | | PATHOLOGY | [address] [...] | + + + + + | [facility] | [address] | [place] [address] | | | PATHOLOGY | [address] | | | + + + + + | [facility] | [address] | [place] [address] | | | PATHOLOGY | [address] | | | + + + + + documented in this encounter Visit Diagnoses Not on filedocumented in this encounter"
--- OUTSIDE RECORDS SUMMARY | ~2020-04-27 | XMS | Encounter Summary ---
Demographics + + + | Address | [address] | | | [place] [address] | + + + | Home Phone [...] Team Providers + +------+ + | Care Dress Cap Maker Name | Role | Phone | + +------+ + PCP | Unavailable | + +------+ + Encounter Details +--------+ + + + + | Date | Type | Department | Care Team | Description | +--------+ + + + + | 07/27/ | Real Estate Salesperson | Orthopaedics at | Tesfaye Saenz | Osteoarthritis of | | 2007 | | [facility] [address] | MEGAN Evangelista | Hip; Hip Pain | | | | [address] | | | | | | Mailcode: [id number] | | | | | | [facility] | | | | | | [place], [place] | | | | | | [address] | | | | | | [phone] | | | +--------+ + + + [...]
--- OUTSIDE RECORDS SUMMARY | ~2020-04-27 | XMS | Encounter Summary ---
Demographics + + + | Address | [address] | | | [place] [address] | + + + | Home Phone [...] Team Providers + +------+ + | Care Value Stream Manager Name | Role | Phone | [...] as of this encounter Progress Notes Interface, Wellness Program Coordinator In - 07/28/2006 5:01 AM PSTCLINIC DATE: 01/07/2001 ORTHOPEDIC CLINIC HISTORY: This is an attending mrogan element note on this 40-year-old obese female [...] from earlier surgical intervention. Lloyd Garcia M.D. [facility] / [id number] / [id number] / [id number] / cc: Helio Noland M.D. [address] [place], [place] [address]Hborpcatrhokxc signed by Interface, Wellness Program Coordinator In at 07/28/2006 5: 01 AM PSTInterface, Wellness Program Coordinator In - 07/28/2006 5:01 AM PSTCLINIC [...] weeks' time. Malcom Her M.D. / SALEEM [id number] / [id number] / [id number] / [id number] Tdocumented in this encounter Plan of Treatment Not on filedocumented as of this encounter Visit Diagnoses Not on filedocumented in this encounter"
--- OUTSIDE RECORDS SUMMARY | ~2020-04-27 | XMS | Encounter Summary ---
Demographics + + + | Address | [address] | | | [place] [address] | + + + | Home Phone [...] Providers + +------+ + | Care Assistant Chief Of Police Name | Role | Phone | + [...] | | Procedures | Rd | [place], | | | | | CONSULT TO | [place], [place] | [place] [address] | | | | | ORTHOPEDICS | [address] | | | | | | AND [...] | | [address] | [address] [place], | | | | | Mailcode: PV430 | [place] [address] | | | | | [facility] | | | | | | [place], [place] | | | | | | [address] | | | | | | [phone] | | | +--------+---------+ + + + [...] as of this encounter Progress Notes Interface, Slate Handler In - 10/05/2006 2:33 AM PST [id number] CHAD Osei [id number] Clinic Date: 10/02/2006 Clinic: Orthopaedics [facility] Galdamez [...] Acevedo. Gino Baker M.D. KEE / SALEEM [id number] / [id number] / [id number] / [id number] cc: Quintin [place] Electronically signed by Gino [...]
--- OUTSIDE RECORDS SUMMARY | ~2020-04-27 | XMS | Encounter Summary ---
Demographics + + + | Address | [address] | | | [place] [address] | + + + | Home Phone [...] Team Providers + +------+ + | Care Commissary Officer Name | Role | Phone | [...] of this encounter Progress Notes Interface, Assistant Production Editor In - 06/11/2006 3:03 AM PDTCLINIC DATE: [...] clinic today. It was done in a [place] in [facility] on December 08, 2001. There [...] on an as-needed basis. Vince Krishna M.D. [facility] / [id number] / [id number] / [id number] / cc: Ninfa Guillen M.D. [address] [place] [address] Kalyan Wu M.D. [facility] Orthopedics and Rehabilitation Lloyd Garcia M.D. [facility] Orthopedics and RehabiliationElectronically signed by Interface, Assistant Production Editor In at 0 06/11/2006 3:03 AM PDTdocumented in this encounter Plan of Treatment Not on filedocumented as of this encounter Visit Diagnoses Not on filedocumented in this encounter"
--- OUTSIDE RECORDS SUMMARY | ~2020-04-27 | XMS | Encounter Summary ---
Demographics + + + | Address | [address] | | | [place] [address] | + + + | Home Phone [...] + +------+ + | Care Motion Picture Camera Operator Name | Role | Phone | + +------+ + PCP | Unavailable | + +------+ + Encounter Details +--------+ + + + + | Date | Type | Department | Care Team | Description | +--------+ + + + + | 12/23/ | Java Lead Architect | Orthopaedics at | Gion Baker MD | Osteoarthritis of | | 2006 | | [address] [address] | [address] | Hip (Primary Dx) | | | | [address] | [address] [place] | | | | | Mailcode: PV430 | [place] [address] | | | | | [facility] | | | | | | [place], [place] | | | | | | [address] | | | | | | [phone] | | | +--------+ + + + [...] HERRERA, | | | | | | MJaun JoseDJuan JoseARTHROGRAM AND | | | | [...]
--- OUTSIDE RECORDS SUMMARY | ~2020-04-27 | XMS | Encounter Summary ---
Demographics + + + | Address | [address] | | | [place] [address] | + + + | Home Phone [...] Providers + +------+ + | Care Account Assistant Name | Role | Phone | [...]
--- OUTSIDE RECORDS SUMMARY | ~2020-04-27 | XMS | Encounter Summary ---
Demographics + + + | Address | [address] | | | [place] [address] | + + + | Home Phone [...] Team Providers + +------+ + | Care Vice President Investor Relations Name | Role | Phone | [...] Pavilion | | | | | | [place], [place] | | | | | | [address] | | | | | | [phone] | | | +--------+ + + + [...] + + + + | [facility] | [address] | [place] [address] | | | PATHOLOGY | [address] | | | + + + + + | [facility] | [address] [facility] | [place] [address] | | | PATHOLOGY | [address] [...] [facility] DEPARTMENT OF | [address] | [place] [address] | | | PATHOLOGY | [address] | | | + + + + + | [facility] DEPARTMENT | [address] | [place] [address] | | | PATHOLOGY | [address] [...] | [facility] | [address] | [place] [address] | | | PATHOLOGY | [address] | | | + + + + + | [facility] | [facility] [address] | [place] [address] | | | PATHOLOGY | [address] [...] HEALTH SYSTEM DEPARTMENT OF | [address] | [place] [address] | | | PATHOLOGY | [address] | | | + + + + + | [place] DEPARTMENT OF | [address] | [place] [address] | | | PATHOLOGY | [address] [...]
--- OUTSIDE RECORDS SUMMARY | ~2020-04-27 | XMS | Encounter Summary ---
Demographics + + + | Address | [address] | | | [place] [address] | + + + | Home Phone [...] Providers + +------+ + | Care Traffic Control Flagger Name | Role | Phone | + [...] | | | | | [address] [place], | | | | | | [place] [address] | | | +--------+ + + + [...]
--- OUTSIDE RECORDS SUMMARY | ~2020-04-27 | XMS | Encounter Summary ---
Demographics + + + | Address | [address] | | | [place] [address] | + + + | Home Phone [...] Team Providers + +------+ + | Care Crushing Foreman Name | Role | Phone | [...] | | Karen Del Rosario NP | [facility] [address] | | | | | TRANSTHORACI | [address] | | | | | C | [address] | [address] | | | | | ECHOCARDIOGR | Rd | [place] | | | | | AM, ADULT | [place], [place] | [facility] | | | | | | [address] | floor | | | | | | | [place], [place] | | | | | | | [address] | | | | | | | Phone: | | | | | | | [phone] | +--------+--------+ + + + + Diagnostic [...] | | | X-RAY | Karen E, ATTENDANT SELF SERVICE STORE | [address] | | | | | ASPIRATION | [address] | [address] | | | | | [place] INJECTION | [facility] | [place] for | | | | | MAJOR JOINT | Rd | Health and | | | | | W/NEEDLE | [place], [place] | Healing, | | | | | PLCMT | [address] | Building 1, | | | | | | | 3rd Floor | | | | | | | [place], [place] | | | | | | | [address] | | | | | | | Phone: | | | | | | | [phone] | | | | | | | Fax: | | | | | | | [phone] | +--------+--------+ + + + + Reason [...] | | | | | | | [address] | | | | | | | [place] | | | | | | | Jamie [facility] | | | | | | | Hospital | | | | | | | [place], [place] | | | | | | | [address] | | | | | | | Phone: | | | | | | | [phone] | +--------+--------+ + + + + Encounter [...] Rd | | | 10/23/ | | Lefloreasmita Vanegason | [place], [place] | | | 2010 | | (MNP/OLD [facility]) | [address] | | | | | [place], [place] | [phone] | | | | | [address] | | | | | | | Jillian Bee MD | | | | | | [address] | | | | | | [place], | | | | | | [place] [address] | | | | | | [phone] | | | | | | | | | | | | Tisha Figueroa FNP | | | | | | [address] | | | | | | [place], | | | | | | [place] [address] | | | | | | [phone] | | | | | | | | | | | | Rustam Duenas MD | | | | | | [address] | | | | | | [place], | | | | | | [place] [address] | | | | | | [phone] | | | | | | | | | | | | Benson Cooper MD | | | | | | [address] [place] | | | | | | [address] [place], [place] | | | | | | [address] | | | | | | | | | | | | Kalyan Arias MD | | | | | | [address] | | | | | | [place] [facility], | | | | | | [place] [address] | | | | | | [phone] | | | | | | | [...] might be different f rom the original. [facility] DEPART[facility] OF [facility]THOPAEDICS & [facility]HABILITATION INPATIENT HOSPITAL DISCHARGE SUMMARY & INTERDISCIPLINARY INSTRUCTIONS Patient: Chastity Galdamez CSN: [id number] Admission Date: 10/12/2010 Discharge Date: 10/22/2010 Attending Physician: Kalyan Arias MD PCP: Travis Cruz MD Service: [facility] Orthopaedics & Rehabilitation Diagnoses Principal Final [...] sut ure/staple removal and wound check. Call [phone] to arrange appointment date and time. Outpatient antibiotics: [facility] referral has been made (for outpatient antibiotics). -While on outpatient antibiotics, weekly CBC/diff, CMP, ESR, & CRP should be checked, with results faxed to Dr. Teresa or Elvia SPENCE at [facility] clinic (fax #[phone]). Current Discharge Medication List START taking these [...] W-FE,OTHER MIN (CENTRUM ORAL) Take by mouth. [place]-3 Fatty Acids-Vitamin E (FISH OIL) 1,000 mg [...] administration instructions. 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 Additional postop instructions/ What to expect: -Apply [...] a pharmacy. Please arrange for someone to brick picker your prescription or allow additional time [...] 2 weeks (or as previously scheduled). Call [phone] to confirm or schedul e this appointment. [...] + + + +---------+ + + | [place]-3 Fatty | Take by mouth. | | [...] 11 Date: 10/23/2010 Patient: CHASTITY Osei TALLY [id number] Interval Hx: Afebrile. Wants to go home. [...] she may arrange timely follow up in [facility] clinic. While o n outpatient antibiotics, weekly CBC/diff, CMP, ESR, & CRP should be checked, with results f axed to Dr. Teresa or Elvia SPENCE at [facility] clinic (fax #[phone]). -Dispo plan: pt requires 3 days of flagyl treatment for C. Diff before discharge to jail facility. D/C to jail facility today Samuel Montaño MD - 10/22/2010 7:24 AM PST Ortho Progress Note Hospital Day: 10 Date: 10/22/2010 Author: SAMUEL BOWEN MD Patient: CHASTITY Osei TALLY [id number] Interval Hx: Afebrile. WBC up yesterday and [...] Dr. Teresa or Elvia Putnam PA at [facility] clinic (fax #[phone]). -Dispo plan: pt requires 3 days of flagyl treatment for C. Diff before discharge to [facility] facility. Possible D/C to jail facility today Samuel Montaño MD - 10/21/2010 7:16 AM PST Ortho Progress Note Hospital Day: 9 Date: 10/21/2010 Author: SAMUEL BOWEN MD Patient: CHASTITY Osei TALLY [id number] Interval Hx: Afebrile overnight. Comfortable and without [...] Dr. Teresa or Elvia Putnam PA at [facility] clinic (fax #[phone]). -Dispo plan: pt requires 3 days of flagyl treatment for C. Diff before discharge to skill ed nursing facility. Plan to D/C to jail facility on Saturday10/22/10. Lucero Petersen M D [...] care for this patient. LUCERO KNOX MD [address] Clinical Hospitalist Service [facility] [place] EPIC DEPARTMENT: Hosp ([facility])- [phone] Place of Service: IP - [id number] [facility] [id number] CPT: 36338 Subsequent Visit Exp Prob Foc/Mod Complexity 25 min I spent 25 minutes nrvg-hd-gdpq with this patient of which greater than [...] patient is discharged. Please notify [facility]AT clinic [id number] re: discharge date, where patient is going (i.e. home, SNF ) and home IV provider if applicable. [facility] Department of Infectious Disease Outpatient IV Antibiotic Therapy Clinic (OPAT) Pager ID: [phone] [facility] [address] Mail Code G861 [place] [address] OPAT teaching note: Education and training for [...] PCP . I gave the patient my [facility] business card, and let them know that our clinical lab assistant, Tonja Keller, will be contacting them after discharge to make their first [facility] clinic follow-up appointment. I explained that labs [...] from antibiotics occur, we will ask the [facility] infusion agency to alter the dose of antibiotics, or even change the antibiotics. I expla ined that we will communicate patient's progress and plan with PCP, surgeon, and the home in [facility]. I reviewed the possible complications PICC lines [...] unable to contact the IV company or [facility], then to present to the ED. I verified that the patient has a primary care provider, and that they will follow-up with them following this hospitalization in regards to other medical issues such as chronic pain, diabetes, or high blood pressure for which we do not provide any care. I provided the patient with the [facility] welcome letter that reiterates the above teaching. I spent 25 minutes in education and training in patient self management for IV antibiotic a nd PICC line use with greater than 50% spent on counseling and/or coordination of care. [facility] DEPARTMENT: IDC INFECT DIS CONSULT - [id number] Place of Service: Inpatient Date of Service: 10/20/2010 CSN: [id number] Suggested Level of Care: 86141- Subsequent hosp care, 25 min Javier Bunn [...] to Dr. Teresa or Elvia SPENCE at [facility] clinic (fax #[phone]). -Please ensure there is a baseline CBC, CMP, ESR, and CRP prior to discharge.--ordered tod ay -Dispo plan: pt requires 3 days of flagyl treatment for C. Diff before discharge to [facility]. Plan to D/C to jail facility on Saturday10/22/10. Lucero Petersen MD - [...] (pt does not want insulin coverage) (10/18/10 5800) Lab Results Component Value Date INR 1.07 [...] Prophylaxis: Per primary team. LUCERO KNOX MD Cath Lab Radiological Technologistacquisition manager Clinical Hospitalist Service [facility] Medicine Department of Medicine [facility] DEPARTMENT: Hosp ([facility])- [phone] Place of Service: - [id number] Modifiers:GC Resident Involved: No CPT: 15861 Subsequent Visit Exp Prob Foc/Mod Complexity 25 min I spent 25 minutes aoaq-jz-yhek with this patient of which greater than [...] Intake/Output Summary (Last 24 hours) at 10/19/10 0635 Last data filed at 10/19/10 0422 Gross [...] Prophylaxis: Per primary team. LUCERO KNOX MD Cath Lab Radiological Technologistacquisition manager Clinical Hospitalist Service [facility] Medicine Department of Medicine [facility] DEPARTMENT: Hosp ([facility])- [id number] Place of Service: Modifiers:GC Resident Involved: No CPT: 30073 Subsequent Visit Exp Prob Foc/Mod Complexity 25 min I spent 25 minutes ghad-lv-qodt with this patient of which greater than [...] (10/16/102111) CBG Intervention: (Pt refused CBG) (10/17/10 3459) Lab Results Component Value Date INR 1.07 [...] as well as aspirate LUCERO KNOX MD Cath Lab Radiological Technologistacquisition manager Clinical Hospitalist Service [facility] Medicine Department of Medicine [facility] DEPARTMENT: Hosp ([facility])- [phone] Place of Service: IP - [id number] Modifiers:GC Resident Involved: No CPT: 22536 Subsequent Visit Detailed/High complexity 35 min I spent 40 minutes yjed-lz-zgik with this patient of which greater than [...] Cohen MD - 10/16/2010 9:36 PM PST [facility] ORTHOPAEDIC SURGERY POST OPERATIVE CHECK IDENTIFICATION: [...] BLE xrays Jillian Farfan MD [facility] [place] Department of Orthopaedics & Rehabilitation [address] [facility] Mail Code: OP31 Amari TAMEZ [phone] [email or web address] Pager: [phone] The above was formulated both independently and [...] immobile. Wearing Priscilla Hose. DAVID KNIGHT MD [facility] 6A Cath Lab Radiological Technologistacquisition manager Clinical Hospitalist Service [facility] EPIC DEPARTMENT: Hosp ([facility])- [phone] Place of Service: IP - [id number] [facility] [id number] Modifiers:GC Resident Involved: No Service: Ortho Suggested CPT: 83531 Subsequent Visit Exp Prob Foc/Mod Complexity 25 min I spent more than 30 minutes ynqh-tz-pmca with the patient of which greater than 50% was sp ent co-ordinating care acoreji, David Evangelista MD - 10/15/2010 7:57 AM PST CLINICAL HOSPITALIST SERVICE ([facility])-PROGRESS NOTE HOSPITAL DAY: 3 Author: DAVID [...] she is quite immobile. DAVID KNIGHT MD [address] Cath Lab Radiological Technologistacquisition manager Clinical Hospitalist Service [facility] [place] EPIC DEPARTMENT: Hosp ([facility])- [phone] Place of Service: - [phone] [facility] [id number] Modifiers:GC Resident Involved: No Service: Primary Suggested CPT: 30374 Subsequent Visit Detailed/High complexity 35 min I spent more than 35 minutes ewjf-jc-ggda with the patient of which greater than [...] + + + | IP CONSULT TO [facility] | Routin | 10/19/2010 | | [...] [facility] | [address] | [place], [place] | | | THERAPY | [address] | [address] | | + + + + + [...] + | [facility] DEPARTMENT | [address] | [place] [address] | | | PATHOLOGY | [address] [...] DEPARTMENT OF | [address] | [place] [address] | | | PATHOLOGY | [address] [...] + | [facility] DEPARTMENT | [address] | [place] [address] | | | PATHOLOGY | [address] [...] [facility] | [address] | [place], [place] | | | THERAPY | [facility] | [address] | | + + + + + [...] [facility] | [address] | [place], [place] | | | SUPRIYA POINT OF CARE | [address] | [address] | | | TESTS | | | [...] + | [facility] DEPARTMENT | [address] | [place] [address] | | | PATHOLOGY | [address] [...] (H) | 60 - 99 mg/dL | [facility] | | | PLASMA | | | [...] DEPARTMENT OF | [address] | [place] [address] | | | PATHOLOGY | [address] [...] + | [facility] DEPARTMENT | [address] [facility] | [place] [address] | | | PATHOLOGY | [address] [...] + + + | [facility] | [address] | [place], [place] | | | THERAPY | [address] | [address] | | + + + + + [...] + + | [facility] DEPARTMENT OF | [address] | [place] [address] | | | PATHOLOGY | [address] [...] [place] | [address] | [place] [address] | | | PATHOLOGY | [address] [...] + + | [facility] DEPARTMENT OF | [address] | [place] [address] | | | PATHOLOGY | [address] [...] Bunch, | | | | | | HAT BLOCK BENCH HAND | | | | | | | | | | | | | | | | | | | | | | | | | | | | | |Electronically Signed by: Angelo Bunch HAT BLOCK BENCH HAND | | | | + + + + +-------- ------+ + + | Specimen | + + | | + + + + + + + | Performing | Address | City/State/Zipcode | Phone Number | | Organization | | | | + + + + + | [facility] | [address] | [place], [place] | | | THERAPY | [address] | [address] | | + + + + + [...] | [facility] | [address] [facility] | [place], [place] | | | THERAPY | [facility] | [address] | | + + + + + [...] [facility] | [address] | [place], [place] | | | THERAPY | [address] | [address] | | + + + + + [...] effective 10/26/08 | [facility] | | [facility] ([facility]) Stacy | REN[place] | | [place] [address] [facility] | LABORATORY | | [place] [address] | | + + + + + + + + | Performing | Address | City/State/Zipcode | Phone Number | | Organization | | | | + + + + + | [facility] | [address] [facility] | [place] [address] | | | LABORATORY | | | [...] DEPARTMENT OF | [address] | [place] [address] | | | PATHOLOGY | [address] [...] DEPARTMENT OF | [address] | [place] [address] | | | PATHOLOGY | [address] | | | + + + + + SEDIMENTATION RATE (10/20/2010 6:44 AM PST) + +---------+ + + + | Component | Value | Ref Range | Performed | Pathologist | | | | | At | Signature | + +---------+ + + + | SEDIMENTATI | 108 (H) | <31 mm/hr | [facility] | | | ON RATE | [...] [place] | [address] | [place] [address] | | | PATHOLOGY | [address] [...] + + + + | [facility] | [address] | [place] [address] | | | LABORATORY | | | [...] DEPARTMENT OF | [address] | [place] [address] | | | PATHOLOGY | [address] [...] Miles, | | | | | | HAT BLOCK BENCH HAND | | | | | | | [...] [facility] | [address] | [place], [place] | | | THERAPY | [address] | [address] | | + + + + + [...] + + | [facility] DEPART[facility] OF | [address] | [place] [address] | | | PATHOLOGY | [address] [...] [place] | [address] | [place] [address] | | | PATHOLOGY | [address] [...] [place] | [address] | [place] [address] | | | PATHOLOGY | [address] | | | + + + + + IP CONSULT TO [facility] TEAM (10/19/2010 10:48 AM PST) + [...] Long 1cm Trimmed Lot # (or Sticker): [id number] INSERTION SITE: | | | - Cephalic [...] CXR Pl[place]: [place] [id number] | | | Assisted by: na | [...] CATHETERProduct Name: BoogieConstruction: | | Single4 Fr60cm Mezz0yb TrimmedLot # (or Sticker): [id number] SITE: - | | CephalicLeftLocal anesthetic used: [...] by CXRPlaced by: Anabella Ramirez RN IVT [id number] | | by: na | |PICC CATHETER | |Product Name: Boogie | |Construction: Single | |4 Fr | |60cm Long | |1cm Trimmed | |Lot # (or Sticker): [id number] | | | |INSERTION SITE: - Cephalic [...] | |Placed by: [place]T [id number] | |Assisted by: na | + + [...] Guardado, | | | | | | HAT BLOCK BENCH HAND | | | | + + + + + + + + | Specimen | + + | | + + + + + + + | Performing | Address | City/State/Zipcode | Phone Number | | Organization | | | | + + + + + | [facility] | [address] | [place], [place] | | | THERAPY | [address] | [address] | | + + + + + [...] [facility] | [address] | [place] [address] | | | PATHOLOGY | [address] [...] DEPARTMENT OF | [address] | [place] [address] | | | PATHOLOGY | [address] [...] [place] | [address] | [place] [address] | | | PATHOLOGY | [address] [...] [facility] | [address] | [place], [place] | | | THERAPY | [address] | [address] | | + + + + + [...] [facility] | [address] | [place], [place] | | | SUPRIYA POINT OF CARE | [address] | [address] | | | TESTS | | | [...] OF | [address] | [place] [address] | | | PATHOLOGY | [address] [...] At | + + + | RLB ([facility]) [facility] | REG[facility] | | [place] [address] [facility] | [facility] | | [place] [address] | LAB-MICRO | + + + + + + + + | Performing | Address | City/State/Zipcode | Phone Number | | Organization | | | | + + + + + | [facility] | [address] [facility] | [place] [address] | | | LAB-MICRO | | | [...] + | [facility] DEPARTMENT | [address] | [place] [address] | | | PATHOLOGY | [address] [...] (H) | 60 - 99 mg/dL | [facility] - | | | GLUCOSE, | [...] [facility] | [address] | [place], [place] | | | JADA EPPS OF CARE | [address] | [address] | | | TESTS | | | [...] [facility] | [address] | [place], [place] | | | JADA EPPS OF CARE | [address] | [address] | | | TESTS | | | [...] DEPARTMENT OF | [address] | [place] [address] | | | PATHOLOGY | [address] [...] [place] | [address] | [place] [address] | | | PATHOLOGY | [address] [...] [place] | [address] | [place] [address] | | | PATHOLOGY | [address] [...] | [facility] | [address] [facility] | [place], [place] | | | THERAPY | [address] | [address] | | + + + + + [...] [facility] | [address] | [place], [place] | | | THERAPY | [address] | [address] | | + + + + + [...] [facility] | [address] | [place], [place] | | | THERAPY | [address] | [address] | | + + + + + [...] RLB ([facility] [address] [facility]) | | | [facility] [address] | | | [place] [address] | | + + + + + + + + | Performing | Address | City/State/Zipcode | Phone Number | | Organization | | | | + + + + + | [facility] | [address] | [place] [address] | | | LABORATORY | | | [...] [facility] | [address] | [place], [place] | | | THERAPY | [address] | [address] | | + + + + + [...] [facility] | [address] | [place], [place] | | | THERAPY | [address] | [address] | | + + + + + [...] + | [facility] | [address] | [place], [place] | | | JADA [facility] | [address] | [address] | | | TESTS | | | [...] [facility] | [address] | [place], [place] | | | JADA EPPS OF CARE | [address] | [address] | | | TESTS | | | [...] [facility] | [address] | [place], [place] | | | SUPRIYA [facility] | [address] | [address] | | | TESTS | | | [...] [facility] | [address] | [place], [place] | | | THERAPY | [address] | [address] | | + + + + + [...] [place] | [address] | [place] [address] | | | PATHOLOGY | [address] [...] | + + + + + | [facility] | [address] | [place] [address] | | | PATHOLOGY | [address] [...] | + + + + + | [facility] DEPART[facility] OF | [address] | [place] [address] | | | PATHOLOGY | [address] [...] DEPARTMENT OF | [address] | [place] [address] | | | PATHOLOGY | [address] [...] DEPARTMENT OF | [address] | [place] [address] | | | PATHOLOGY | [address] [...] + + + | [facility] | [address] | [place] [address] | | | LAB-MICRO | | | [...] + + + | [facility] | [address] | [place] [address] | | | LAB-MICRO | | | [...] Lab) | | | | | | [facility] | | | | | | [address] | | | [address] | | | | | | [place] [address] | | | | + + + + + + + + | Specimen | + + | | + + + + + + + | Performing | Address | City/State/Zipcode | Phone Number | | Organization | | | | + + + + + | [facility] | [address] | [place] [address] | | | LAB-MICRO | | | [...] + + + | [facility] | [address] | [place] [address] | | | LAB-MICRO | | | [...] Lab) | | | | | | [facility] | | | | | | [address] | | [address] | | | | | | [place] [address] | | | | + + + + + + + + | Specimen | + + | | + + + + + + + | Performing | Address | City/State/Zipcode | Phone Number | | Organization | | | | + + + + + | [facility] | [address] | [place] [address] | | | LAB-MICRO | | | [...] + + + + + | [facility] | [address] | [place] [address] | | | LAB-MICRO | | | [...] Permanente | | | | | | [address] | | | | | | [place], | | | | | | [place] [address] | | | | + + + + + + + + | Specimen | + + | | + + + + + + + | Performing | Address | City/State/Zipcode | Phone Number | | Organization | | | | + + + + + | [facility] | [address] | [place] [address] | | | LAB-MICRO | | | [...] Lab) | | | | | | [facility] | | | | | | [address] | | | [address] | | | | | | [place] [address] | | | | + + + + + + + + | Specimen | + + | | + + + + + + + | Performing | Address | City/State/Zipcode | Phone Number | | Organization | | | | + + + + + | [facility] | [address] | [place] [address] | | | LAB-MICRO | | | [...] + + + | [facility] | [address] | [place] [address] | | | LAB-MICRO | | | [...] + + + | [facility] | [address] | [place] [address] | | | LAB-MICRO | | | [...] Lab) | | | | | | [facility] | | | | | | [address] | | | [address] | | | | | | [place] [address] | | | | + + + + + + + + | Specimen | + + | | + + + + + + + | Performing | Address | City/State/Zipcode | Phone Number | | Organization | | | | + + + + + | [facility] | [address] | [place] [address] | | | LAB-MICRO | | | [...] + + + | [facility] | [address] | [place] [address] | | | LAB-MICRO | | | [...] + + + | [facility] | [address] | [place] [address] | | | LAB-MICRO | | | [...] Permanente | | | | | | [address] | | | | | | [place], | | | | | | [place] [address] | | | | + + + + + + + + | Specimen | + + | | + + + + + + + | Performing | Address | City/State/Zipcode | Phone Number | | Organization | | | | + + + + + | [facility] | [address] | [place] [address] | | | LAB-MICRO | | | [...] + + + | [facility] | [address] | [place] [address] | | | LAB-MICRO | | | [...] + + + | [facility] | [address] | [place] [address] | | | LAB-MICRO | | | [...] Lab) | | | | | | [facility] | | | | | | [address] | | | [address] | | | | | | [place] [address] | | | | + + + + + + + + | Specimen | + + | | + + + + + + + | Performing | Address | City/State/Zipcode | Phone Number | | Organization | | | | + + + + + | [facility] | [address] | [place] [address] | | | LAB-MICRO | | | [...] + + + | [facility] | [address] | [place] [address] | | | LAB-MICRO | | | [...] + + + | [facility] | [address] | [place] [address] | | | LAB-MICRO | | | [...] [facility] | | | | | | ([address] [facility]) | | | | | | [facility] | | | | | | [address] | | | | | [address] | | | | | | [place] [address] | | | | + + + + + + + + | Specimen | + + | | + + + + + + + | Performing | Address | City/State/Zipcode | Phone Number | | Organization | | | | + + + + + | [facility] [facility] | [address] | [place] [address] | | | LAB-MICRO | | | [...] [facility] | | | | | | [address] | | | | | | [place], | | | | | | [place] [address] | | | | + + + + + + + + | Specimen | + + | | + + + + + + + | Performing | Address | City/State/Zipcode | Phone Number | | Organization | | | | + + + + + | [facility] | [address] | [place] [address] | | | LAB-MICRO | | | [...] + + + | [facility] | [address] | [place] [address] | | | LAB-MICRO | | | [...] + + + | [facility] | [address] | [place] [address] | | | LAB-MICRO | | | [...] Lab) | | | | | | [facility] | | | | | | [address] | | [address] | | | | | | [place] [address] | | | | + + + + + + + + | Specimen | + + | | + + + + + + + | Performing | Address | City/State/Zipcode | Phone Number | | Organization | | | | + + + + + | [facility] | [address] | [place] [address] | | | LAB-MICRO | | | [...] + + + | [facility] | [address] | [place] [address] | | | LAB-MICRO | | | [...] RLB | | | | | | ([address] [facility]) | | | | | | [facility] | | | | | | [address] | | | | | [address] | | | | | | [place] [address] | | | | + + + + + + + + | Specimen | + + | | + + + + + + + | Performing | Address | City/State/Zipcode | Phone Number | | Organization | | | | + + + + + | [facility] | [address] | [place] [address] | | | LAB-MICRO | | | [...] | + + + + + | [facility] | [address] | [place] [address] | | | LAB-MICRO | | | [...] Regis | | | | | | [facility] | | | | | | [address] | | | | | | [place], | | | | | | [place] [address] | | | | + + + + + + + + | Specimen | + + | | + + + + + + + | Performing | Address | City/State/Zipcode | Phone Number | | Organization | | | | + + + + + | [facility] | [address] | [place] [address] | | | LAB-MICRO | | | [...] + + + | [facility] | [address] | [place] [address] | | | LAB-MICRO | | | [...] + + + + + | [facility] | [address] | [place] [address] | | | LAB-MICRO | | | [...] Lab) | | | | | | [facility] | | | | | | [address] | | [address] | | | | | | [place] [address] | | | | + + + + + + + + | Specimen | + + | | + + + + + + + | Performing | Address | City/State/Zipcode | Phone Number | | Organization | | | | + + + + + | [facility] | [address] | [place] [address] | | | LAB-MICRO | | | [...] + + + | [facility] | [address] | [place] [address] | | | LAB-MICRO | | | [...] RLB | | | | | | ([address] [facility]) | | | | | | [facility] | | | | | | [address] | | | | | [address] | | | | | | [place] [address] | | | | + + + + + + + + | Specimen | + + | | + + + + + + + | Performing | Address | City/State/Zipcode | Phone Number | | Organization | | | | + + + + + | [facility] | [address] | [place] [address] | | | LAB-MICRO | | | [...] + + + | [facility] | [address] | [place] [address] | | | LAB-MICRO | | | [...] Molly | | | | | | [address] | | | | | | [place], | | | | | | [place] [address] | | | | + + + + + + + + | Specimen | + + | | + + + + + + + | Performing | Address | City/State/Zipcode | Phone Number | | Organization | | | | + + + + + | [facility] | [address] | [place] [address] | | | LAB-MICRO | | | [...] + + + + | [facility] | [address] | [place] [address] | | | LAB-MICRO | | | [...] + | [facility] DEPART[facility] | [address] | [place] [address] | | | PATHOLOGY | [address] [...] [facility] | [address] | [place] [address] | | | PATHOLOGY | [address] [...] effective 02/15/09 | [facility] | | RLB ([address] [facility]) [facility] | [facility] | | [facility] [address] [facility] [address] | LABORATORY | | [place] [address] | | + + + + + + + + | Performing | Address | City/State/Zipcode | Phone Number | | Organization | | | | + + + + + | [facility] | [address] | [place] [address] | | | LABORATORY | | | [...] At | + + + | RLB ([address] [facility]) | [facility] | | [facility] [address] [facility] | REGIONAL | | [place] [address] | LABORATORY | + + + + + + + + | Performing | Address | City/State/Zipcode | Phone Number | | Organization | | | | + + + + + | [facility] | [address] | [place] [address] | | | LABORATORY | | | [...] [facility] | [address] | [place], [place] | | | THERAPY | [address] | [address] | | + + + + + OPERATION RECORD (10/16/2010 12:00 AM PST) + + + | Narrative | Performed At | + + + | [id number] | | | [id number] CHAD | | | CHASTITY Osei [id number] Date: | | | 10/16/2010 Attending Surgeon: | | | Kalyan Arias M.D. Asphalt Spreader(s): | | | Raymond Valdes M.D. Preoperative [...] She presented as an ED transfer to [facility] approximately 3 days | | | [...] | multimodal DVT prophylaxis. Kalyan Arias M.D. [facility] / | | | [id number] / [id number] / [id number] / | | | | | + + + + + | Procedure Note | + + | Kalyan Arias MD - 10/17/2010 9:21 AM [facility] [id number] | | 01/ [id number] [facility] | | [id number] Date: 10/16/2010 Attending Surgeon: Kalyan | | Ortiz Arias M.D. Asphalt Spreader(s): Raymond Valdes M.D. Preoperative | | Diagnosis(es):1. [...] who is almost [address] [facility] total hip arthroplasty. She had a [...] She presented as an ED transfer to [facility] approximately 3 | | days priorto [...] aerobic cultures and blood culture bottles per [facility] biopsy protocol. The fascia | | was [...] | will receivemultimodal DVT prophylaxis. Kalyan Arias M.D.[facility] / [id number] / [id number] | | / [id number] / T: 10/16/2010 | |minimally symptomatic for her, and she did well with the arthroplasty | |itself. She presented as an ED transfer to [facility] approximately 3 days prior | |to [...] | | | |Kalyan Arias M.D. | |[facility] / | |[id number] / [id number] / [id number] / | | | | | | [...] | + + + + + | [facility] | [address] | [place], [place] | | | FLOR[place] EPPS | [facility] | [address] | | | TESTS | | | [...] [facility] DE[facility] | [address] | [place] [address] | | | PATHOLOGY | [address] [...] + + + + | PRODUCT | [id number] | | [facility] | | | UNIT [...] + + + + | BLOOD | [id number] | | [facility] | | | PRODUCT [...] DEPARTMENT OF | [address] | [place] [address] | | | PATHOLOGY | [address] [...] + + + + | PRODUCT | [id number] | | [facility] | | | UNIT [...] + + + + | BLOOD | [id number] | | [facility] | | | PRODUCT [...] [place] [place] | [address] | [place] [address] | | | PATHOLOGY | [address] [...] + | Performing | Address | City/State/[facility] | Phone Number | | Organization | | | | + + + + + | [facility] | [address] | [place], [place] | | | JADA EPPS OF [facility] | [address] | [address] | | | TESTS | | | [...] [facility] | [address] | [place], [place] | | | JADA EPPS OF [place] | [facility] | [address] | | | TESTS | | | | + + + + + CAPILLARY BLOOD GLUCOSE, POC (10/14/2010 11:02 PM PST) + +---------+ + + + | Component | Value | Ref Range | Performed | Pathologist | | | | | At | Signature | + +---------+ + + + | BLOOD | 142 (H) | 60 - 99 mg/dL | [facility] - | | | GLUCOSE, | [...] [facility] | [address] | [place], [place] | | | SUPRIYA POINT OF CARE | [address] | [address] | | | TESTS | | | [...] [facility] | [address] | [place], [place] | | | THERAPY | [address] | [address] | | + + + + + [...] view image for the detailed interpretation from [facility] results. | CARDIOLOGY | + + + + + + + + | Performing | Address | City/State/Zipcode | Phone Number | | Organization | | | | + + + + + | [facility] | [address] | [place], [place] | | | CARDIOLOGY | [address] | [address] | | + + + + + [...] + + + + | [facility] | [address] | [place] [address] | | | LAB-MICRO | | | [...] DEPARTMENT OF | [address] | [place] [address] | | | PATHOLOGY | [address] [...] + + | * Corrected 10/14/10 07:36: ARHUL COMMENTS, prev report: Slide | [facility] | | review pending. | DEPARTMENT OF | | | PATHOLOGY | + + + + + + + + | Performing | Address | City/State/Zipcode | Phone Number | | Organization | | | | + + + + + | [facility] | [address] | [place] [address] | | | PATHOLOGY | [address] [...] [facility] | [address] | [place] [address] | | | PATHOLOGY | [address] [...] Lab) | | | | | | [facility] | | | | | | [address] | | | [address] | | | | | | [place] [address] | | | | + + + + + + + + | Specimen | + + | | + + + + + + + | Performing | Address | City/State/Zipcode | Phone Number | | Organization | | | | + + + + + | [facility] | [address] | [place] [address] | | | LAB-MICRO | | | [...] + | [facility] | [address] | [place] [address] | | | PATHOLOGY | [address] [...] DEPARTMENT OF | [address] | [place] [address] | | | PATHOLOGY | [address] [...] [facility] | [address] | [place] [address] | | | PATHOLOGY | [address] [...] + + + | [facility] | [address] | [place] [address] | | | LAB-MICRO | | | [...] + + + | [facility] | [address] | [place] [address] | | | LAB-MICRO | | | [...] [facility] | [address] | [place] [address] | | | PATHOLOGY | [address] [...] [facility] | [address] | [place] [address] | | | PATHOLOGY | [address] [...] DEPARTMENT OF | [address] | [place] [address] | | | PATHOLOGY | [address] [...] + + + | [facility] | [address] | [place] [address] | | | LAB-MICRO | | | [...] [facility] | [address] | [place] [address] | | | PATHOLOGY | [address] [...] DEPARTMENT OF | [address] | [place] [address] | | | PATHOLOGY | [address] [...] DEPARTMENT OF | [address] | [place] [address] | | | PATHOLOGY | [address] [...] [facility] | [address] | [place] [address] | | | PATHOLOGY | [address] [...] effective 10/26/08 | [facility] | | RLB ([address] [facility]) [facility] | [facility]IONAL | | [facility] [place] [address] | LABORATORY | | [place] [address] | | + + + + + + + + | Performing | Address | City/State/Zipcode | Phone Number | | Organization | | | | + + + + + | [facility] | [address] | [place] [address] | | | LABORATORY | | | [...]
--- OUTSIDE RECORDS SUMMARY | ~2020-04-27 | XMS | Encounter Summary ---
Demographics + + + | Address | [address] | | | [place] [address] | + + + | Home Phone [...] Providers + +------+ + | Care Bank Representative Name | Role | Phone | + +------+ + | Travis Mcginnis MD | PCP | | + +------+ + Encounter Details +--------+ + + + + | Date | Type | Department | Care Team | Description | +--------+ + + + + | 07/01/ | Abstract | Orthopaedics | Note, Orthopedics | | | 2018 | | [facility] | | | | | [facility] | | | | | | Healing [address] | | | | | | e [facility] | | | | [facility], | | | | | | Building | | | | | | Floor [place], [place] | | | | | | [address] | | | | | | [phone] | | | +--------+ + + + [...] bone in back. 2009. Dr Lloyd Harris [facility] JUAN DAVID 2002 Have you seen anyone for this yet? [facility] in [place]. ED 06/24 [facility] in [facility]. Has had sepsis and MRSA and need to lose 35 lbs per this office. Eugenie [facility] [phone] 07/03 via phone MRI May 2018 CT [facility] impax X-Ray May 2018 XR [facility] impax CT no Ultrasound no Other imaging [...] will you be traveling for this appointment? [place] Note: If patient traveling greater than 1 [...]
--- OUTSIDE RECORDS SUMMARY | ~2020-04-27 | XMS | Encounter Summary ---
Demographics + + + | Address | [address] | | | [place] [address] | + + + | Home Phone [...] Providers + +------+ + | Care Service Station Manager Name | Role | Phone [...] as of this encounter Progress Notes Interface, Mitigation Supervisor In - 08/06/2006 1:09 AM PSTCLINIC DATE: [...] provided by Dr. Noland. Lloyd Garcia M.D. Civil Designer, Orthopedics and Rehabilitation / [id number] / [id number] / [id number] / [id number] cc: Helio Noland M.D. [address] [place], [place] [id number] signed by Interface, Mitigation Supervisor In at 08/06/2006 1: 09 AM PSTdocumented in this encounter Plan of Treatment Not on filedocumented as of this encounter Visit Diagnoses Not on filedocumented in this encounter
--- OUTSIDE RECORDS SUMMARY | ~2020-04-27 | XMS | Encounter Summary ---
Demographics + + + | Address | [address] | | | [place] [address] | + + + | Home Phone [...] Team Providers + +------+ + | Care Compressor Stations Superintendent Name | Role | Phone [...] Pavilion | | | | | | [place], [place] | | | | | | [address] | | | | | | [phone] | | | +--------+ + + + [...]
[2020-04-27] MEDS ORDERED: DICLOFENAC SODI75 MG PO (16:44)
[2020-04-27] MEDS ORDERED: NYAMYC15 GM TOP (16:46)
[2020-04-27] MEDS ORDERED: DICLOFENAC SOD100 G1 TOP (16:47)
--- NOTE | 2020-04-27 18:04 | NUR ---
60YR OLD WOMAN ADMITTED FROM ER VIA STRETCHER TO ROOM 109, PT ABLE TO STAND APIVOT ONTO BSC, LARGE SOFT BM, LARGE VOID, C/O NAUSEA NO EMESIS, ASSISTED INTO BED, ORIENTED TO ROOM AND CALL LIGHT, "I'M GONNA SLEEP". CALL LIGHT IN EASY REACH. ORDERS NOTED.
--- NOTE | 2020-04-27 18:52 | NUR ---
PT IS SLEEPING, SNORING LOUDLY, ROCEPHIN INFUSING AT THIS TIME, CALL LIGHT IN EASY REACH.
--- NOTE | 2020-04-27 19:09 | NUR ---
IN ROOM FOR REPORT, PT IS RESTING WITH EYES CLOSED, RR IS EVEN AND NONLABORED. CALL LIGHT IS CLOSE.
--- NOTE | 2020-04-27 19:45 | NUR ---
IN ROOM TO ADMINISTER MAG AND POTASSIUM SINCE IV ABX IS COMPLETE. PT DENIES NEEDS AT THIS TIME. CALL LIGHT IS CLOSE.
--- NOTE | 2020-04-27 20:01 | NUR ---
HELPED PT TO THE BSC AND BACK TO BED. SHE WAS HAVING SOME EMESIS , SO SHE ASKED FOR SOMETHING FOR THAT. I INFORMED HER RN BEULAH. BEDSIDE TABLE AND CALL LIGHT IN REACH.
--- NOTE | 2020-04-27 20:13 | NUR ---
PT REQUESTED MEDS FOR NAUSEA, MEDICATION GIVEN. MOSTLY SLEEPY, DID OPEN EYES WHEN NOISE OCCURRED. NO OTHER NEEDS AT THIS TIME.
--- NOTE | 2020-04-27 22:12 | NUR ---
VITALS AND I&OS DONE AND CHARTED. HELPED PT TO THE BSC AND BACK TO BED. SHE REFUSES TO WIPE AFTER URINATING. CLEANED UP THE FLOOR WHERE SHE DRIBBLED URINE. SHE ALSO REFUSED TO WEAR HER SOCKS WHEN I WAS TRYING TO PUT THEM ON. BEDSIDE TABLE AND CALL LIGHT IN REACH. INFORMED HERMINIO RIOJAS OF HER B\P
--- NOTE | 2020-04-27 22:16 | NUR ---
ADMINISTERED NORCO FOR BACK PAIN, PT REFUSED FLEXERIL STATING IT DOES NOTHING. SHE DENIES NAUSEA. PT FELL BACK ASLEEP BEFORE THIS RN LEFT THE ROOM. CALL LIGHT IS CLOSE. SEE ASSESSMENT.
--- NOTE | 2020-04-27 23:22 | NUR ---
PT IS RESTING WITH EYES CLOSED, RR IS EVEN AND NONLABORED. CALL LIGHT IS CLOSE, IV IS INFUSING FINE.
--- NOTE | 2020-04-27 23:35 | NUR ---
HELPED PT TO THE BSC AND BACK TO BED. SHE REFUSES TO WIPE OR WEAR HER SOCKS. CLEANED UP THE FLOOR WITH FLANGE TURNER WIPES. BEDSIDE TABLE AND CALL LIGHT IN REACH.
--- NOTE | 2020-04-28 00:47 | NUR ---
IN ROOM TO START VANCO NOW THAT K+ IS COMPLETE. PT STATES SHE NEEDS TO USE THE RESTROOM, DAVID MANAGER WEB APPLICATION IS ASSISTING HER.
--- NOTE | 2020-04-28 03:43 | NUR ---
PT'S IV PUMP HAS BEEN BEEPING VERY FREQUENTLY WHEN PT BENDS ARM. ENTERED ROOM TO START A NEW IV SO THE VANCO CAN FINISH INFUSING. PT ASKED FOR A FAN SAYING HER ROOM IS HOT. TEMP IS SET LOW IT CAN GO AT 67 AND TOLD PT WE ARE NOT ABLE TO PROVIDE A FAN UNTIL COVID-19 TEST COMES BACK NEGATIVE. OFFERED TO REMOVE HER BLANKET AND PUT A SHEET OVER HER AND SHE REFUSED. TOLD PT WE NEED TO START A NEW IV AND SHE REFUSED STATING "NOT UNTIL MY CHUNG COMES BACK NEGATIVE" AND PROMPTLY FELL BACK ASLEEP. REPOSITIONED PT'S ARM AND TAPED IV IN HOPES OF IT INFUSING BETTER. PT IGNORED FURTHER REQUESTS TO START NEW IV. CALL LIGHT IS CLOSE AND IV IS INFUSING THROUGH FIELD START IV AT THIS TIME.
--- NOTE | 2020-04-28 05:10 | NUR ---
PT CALLED D/T BEEPING IV PUMP. IV FLUID IS NOW INFUSING FINE AGAIN AFTER SOME ADJUSTMENT. CALL LIGHT IS CLOSE.
--- NOTE | 2020-04-28 06:09 | NUR ---
REDRESSED PT'S IV, D/T BEEPING AND IT SEEMS TO BE INFUSING FINE NOW. DECEMBER BABY FORMULA WORKER TOOK VS AND THEY ARE ENTERED. PT DENIES FURTHER NEEDS. CALL LIGHT IS CLOSE.
--- NOTE | 2020-04-28 06:35 | NUR ---
PT SLEPT QUITE A BIT THROUGH THE NIGHT EVEN FALLS BACK ASLEEP DURING CONVERSATION. SHE REFUSED TO HAVE A NEW IV STARTED, REDRESSED HER AC FEILDSTART IV D/T FREQUENT BEEPING. SHE AMBULATES 1PA AND HAS DRLR INFUSING AT 100MLS/HR. SHE IS ON CLEAR LIQUIDS. SHE HAD A MAG RIDER AND POTASSIUM LAST NIGHT. SHE IS ON 2LNC WHILE SLEEPING.
--- NOTE | 2020-04-28 08:39 | NUR ---
PT IN BED TRYING TO SLEEP WILL TALK WITH STEEL POST INSTALLER SUPERVISOR, BUT WILL NOT ANSWER THE PHONE WHEN IT RINGS. ENCOURAGE PT TO GET UP AND EAT HER CLEAR LIQUID TRAY. PT CONTIOUE TO SRAVANIE IN BED WITH CLEMENT CLOSED. EXPLAINED THAT SHE NEEDS TO SHOWER TODAY.
--- NOTE | 2020-04-28 09:15 | NUR ---
SPOKE WITH PATIENT IN ROOM. PATIENT KEPT CLOSING EYES AND HAD TO ASK MANY QUESTIONS SEVERAL TIMES. PATIENT LIVES IN APARTMENT WITH [place]. USES A WALKER WITH SEAT. DENIES HAVING OXYGEN AT HOME. STATES SHE HAS CAREGIVERS THROUGH STATE. STATES SHE DOESN'T HAVE ISSUES WITH AFFORDING MEDICATIONS, FOOD OR UTILITIES. SHE DOES NOT HAVE A PCP. ASKED IF SHE UNDERSTANDS WHY IT IS IMPORTANT. SHE STATES "NO ONE WILL TAKE ME, BUT I'M LOOKING". WHEN ASKED TO ELABORATE ON THIS SHE JUST SHRUGS AND DOESN'T ANSWER MORE. ASKED ABOUT POSITIVE METH ON DRUG SCREEN, ASKED IF SHE WOULD LIKE TO TALK WITH SOMEONE FROM [facility]. SHE STATES SHE DOESN'T DO METH, SHE JUST TESTS POSITIVE AT [facility]. SHE STATES WHEN SHE GOES TO OTHER FACILITIES SHE IS CLEAN. SHE STATES SHE FEELS SHE HAS ENOUGH HELP AT HOME. PLANS TO DISCHARGE TO HOME. STATES HER CAREGIVER PAT CAN TAKE HER HOME AT DISCHARGE. WHEN ASKED IF SHE DRIVES SHE STATES SHE DOES.
--- NOTE | 2020-04-28 12:18 | NUR ---
PT HAS BEEN SLEEPING ALL MORNING, ONLY OPENS EYES WHEN SPOKEN TOO, DOES NOT WANT TO DO MUCH THIS AM.
--- NOTE | 2020-04-28 12:32 | NUR ---
PT UP TO THE BATHROOM VOIDED AND THEN BACK TO BED C/O SHE FEELS LIKE SHE GOING TO VOMET. BACK TO BED AND THEN SHE C/O PAIN, SHE WILL NOT TALK ON THE PHONE AND THE NAME OF THE PERSON WRITTEN ON THE BOARD FOR HE R TO CALL BACK. EMIMES BAG GIVEN TO HER AT THIS TIME.
--- NOTE | 2020-04-28 12:40 | NUR ---
PT LAYING IN BED, TV ON. PT AROUSED TO MY VOICE, BUT CONTINUALLY DRIFTED OFF. WAS UNABLE TO KEEP PT AWAKE. WILL TRY AGAIN
--- NOTE | 2020-04-28 12:48 | NUR ---
pt snoring at this time, slept through given medications
--- NOTE | 2020-04-28 14:00 | NUR ---
PATIENT UP TO COMMODE WITH ONE PERSON ASSIST AND USING WALKER. PATIENT TRANSFERRED SELF BACK TO BED.
--- NOTE | 2020-04-28 15:15 | NUR ---
MEDICATED FOR PAIN UNABLE TO WORK WITH PHYSICAL THERAPY THIS AFTERNOON DUE TO PAIN.
--- NOTE | 2020-04-28 15:56 | NUR ---
PT ATE POPCICLE AND HAS STAINED RED IN COLOR ON LIS AND DOWN THE DOWN THE SIDE OF HER FACE. NEW IV SITE TRYING TO BE OBTAINED AT THIS TIME DUE TO THE ONE IN HER RIGHT AC HAS OCCLUDING ISSUES.
--- NOTE | 2020-04-28 15:59 | NUR ---
I HELPED PHYSICAL THEREPY WALK PATIENT [facility] AND BACK TO HER BED. PATIENT REFUSED TO WEAR THE HOSPITAL SOCKS. SHE WAS USING A WALKER.
--- NOTE | 2020-04-28 16:44 | NUR ---
PT ASLEEP RESP RATE EVEN AND UNLABORED AT THIS TIME. STAFF WAS UNABLE TO OBTAIN A NEW IV SITE.
--- NOTE | 2020-04-28 18:37 | NUR ---
PT APPEARS TO BE SLEEPING RESP RATE EVEN AND UNLABORED AT TIMES SHE WILL SNORE SOFTLY. PT CLEAR LIQUID TRAY REMAINS AT THE BEDSIDE,
--- NOTE | 2020-04-28 19:10 | NUR ---
PT RESTING IN BED, EYES CLOSED. IV FLUIDS INFUSING PER ORDER. NC @ 2L. CALL LIGHT IN REACH.
--- NOTE | 2020-04-28 20:00 | NUR ---
Charge nurse note:, resting, eyes closed, O2 in place, IVF infusing, no s/sx distress or pain, call light and fluids at bedside
--- NOTE | 2020-04-28 21:45 | NUR ---
ASSESSMENT COMPLETED. REDNESS NOTED UNDER PANNUS. 05/09 PAIN, PRN PAIN MED PROVIDED. SCHEDULED MEDS PROVIDED. NC @ 2L. IV WNL, CDI, FLUSHED WELL. 2+ BLE EDEMA NOTED. LUNGS CLEAR AND DIMINISHED IN ALL LOBES. NO OTHER NEEDS AT THIS TIME. CALL LIGHT IN REACH.
--- NOTE | 2020-04-29 01:00 | NUR ---
PT RESTING IN BED, EYES CLOSED. IV FLUIDS INFUSING PER ORDER. CALL LIGHT IN REACH.
--- NOTE | 2020-04-29 03:25 | NUR ---
PT RESTING IN BED, EYES CLOSED. IV FLUIDS INFUSING PER ORDER. CALL LIGHT IN REACH.
--- NOTE | 2020-04-29 04:02 | NUR ---
PT STATES SHE HAS 8/10 PAIN IN BACK AND PANNUS, PRN PAIN MED PROVIDED. PUDDING AND CRACKERS PROVIDED. ASSESSMENT COMPLETED. ICE WATER PROVIDED. NO OTHER NEEDS AT THIS TIME. CALL LIKE IN REACH.
--- NOTE | 2020-04-29 07:15 | NUR ---
HANDOFF REPORT RECEIVED FROM CASTING INSPECTOR RN. PT RESTING IN BED.
--- NOTE | 2020-04-29 09:30 | NUR ---
PT RESTING IN BED. PT ON ROOM AIR, LUNG SOUNDS CLEAR, 02 SATS 91-92%. PT DENIES NAUSEA, TOLERATING REGULAR DIET. PT WITH PAIN 7/10 TO LEFT LOWER BACK, GIVEN NORCO PER ORDER. PT WITH TRACE EDEMA TO BLE, CMS INTACT. PT ASSISTED TO BEDSIDE COMMODE, VOIDED. IV FLUIDS INFUSING D5LR AT 75ML/HR. PT STATES SHE WILL BE GOING ON AND OFF CPAP THROUGHOUT DAY, ISOLATION PRECAUTIONS PER PROTOCOL. PT DENIES OTHER NEEDS AT THIS TIME.
[2020-04-29] MEDS ORDERED: AMLODIPINE BESYL5 MG PO (12:25)
[2020-04-29] MEDS ORDERED: SULFAMETHOXAZO1 EAC1 PO (12:25)
[2020-04-29] MEDS ORDERED: DOK PLUS TABLE1 EACH PO (12:26)
[2020-04-29] MEDS ORDERED: POLYETHYLENE GL17 GM PO (12:26)
[2020-04-29] MEDS ORDERED: OXAYDO5 MG PO (12:28)
[2020-04-29] MEDS ORDERED: PANTOPRAZOLE SO40 MG PO (12:48)
== END 2020-04-29 14:00 | disposition home or self-care (01) | DRG 603 ==
LOC: ED 08:47 → MS 16:20
PROVIDERS: ADMIT Student in an Organized Health Care Education/Training Program
DX: L03.311 Cellulitis of abdominal wall (principal); N39.0 Urinary tract infection, site not specified; K52.9 Noninfective gastroenteritis and colitis, unspecified; G89.29 Other chronic pain; F15.10 Other stimulant abuse, uncomplicated; I10 Essential (primary) hypertension; F32.9 Major depressive disorder, single episode, unspecified; J44.9 Chronic obstructive pulmonary disease, unspecified; F17.210 Nicotine dependence, cigarettes, uncomplicated; G47.33 Obstructive sleep apnea (adult) (pediatric); G89.4 Chronic pain syndrome
CPT/HCPCS: 36415; 71045; 74177; 80048; 80053; 81001; 83605; 83735; 85025; 87040; 87077; 87088; 87186; 94760; 96361; 96375; 97116; 97163; 97165; 97535; 99285-25; C9113; C9803; J0696; J1170; J1650; J2405; J2550; J3370; J3475; J3480; J7030; J7060; J7121; Q9967; U0002

== ENCOUNTER 2020-05-01 10:24 | Emergency (ER) | payer OTHER ==
[~2020-05-01] VITALS: Ht 162.6 cm; Wt 135.7 kg
--- OUTSIDE RECORDS SUMMARY | ~2020-05-01 | XMS | Encounter Summary ---
Demographics + + + | Address | [address] | | | [place] [address] | + + + | Home Phone [...] Team Providers + +------+ + | Care Adjunct Psychology Faculty Member Name | Role | Phone | + +------+ + PCP | Unavailable | + +------+ + Encounter Details +--------+ + + + + | Date | Type | Department | Care Team | Description | +--------+ + + + + | 10/10/ | Results | | Isabella Palomo MD | | | 2004 | Only | | [address] | | | | | | [place] | | | | | | [place] [address] | | | | | | [phone] | | +--------+ + + + + [...] | + +--------+ + + + | HEPATITIS B SURFACE | Routin | 10/10/2003 | | Results for this | | AB QUANT, SERUM | e | 2:45 PM | | procedure are in the | | | | PST | | results section. | + +--------+ + + + documented in this encounter Results HEPATITIS B AB QUANT (10/10/2003 2:45 PM PST) + + + + + + | Component | Value | Ref Range | Performed | Pathologist | | | | | At | Signature | + + + + + + | HEP B SURF | < 10.0Comment: 10 | mIU/mL | | | | AB QUANT | mIU/mL or greater is | | | | | | predictive of immunity | | | | | | Test performed by | | | | | | [facility] | | | | | | [facility]. | | | | + + + + + + + + | Specimen | + + | | + + + + + + + | Performing | Address | City/State/Zipcode | Phone Number | | Organization | | | | + + + + + | [facility] | [address] | [place] [address] | | | LABORATORY | | | | + + + + + documented in this encounter Visit Diagnoses Not on filedocumented in this encounter"
--- OUTSIDE RECORDS SUMMARY | ~2020-05-01 | XMS | Encounter Summary ---
Demographics + + + | Address | [address] | | | [place] [address] | + + + | Home Phone | | + + + | Preferred Language | Unknown | + + + | Marital Status | Single | + + + | Hindu Affiliation | PRE | + + + | Race | White | + + + | Ethnic Group | Not or | + + + Author + + + | Author | [facility] | + + + | Organization | [facility] | + + + | [...] Team Providers + +------+ + | Care Detective Supervisor Name | Role | Phone | + +------+ + | No Pcp Per Patient | PCP | Unavailable | + +------+ + Reason for Visit + + + | Reason | Comments | + + + | Incision AND | | | drainage | | + + + Encounter Details +--------+ + + + + | Date | Type | Department | Care Team | Description | +--------+ + + + + | 01/18/ | Telephone | Orthopaedics at | Kalyan Arias MD | Incision AND | | 2008 | | [facility] [address] | drainage | | | | [address] | [address] | | | | | Mailcode: [id number] | [place], [place] | | | | | [facility] | [address] | | | | | [place], [place] | [phone] | | | | | [address] | | | | | | [phone] | | | +--------+ + + + [...]
--- OUTSIDE RECORDS SUMMARY | ~2020-05-01 | XMS | Encounter Summary ---
Demographics + + + | Address | [address] | | | [place] [address] | + + + | Home Phone | | + + + | Preferred Language | Unknown | + + + | Marital Status | Single | + + + | Gnosticism Affiliation | PRE | + + + | Race | White | + + + | Ethnic Group | Not or | + + + Author + + + | Author | [facility] | + + + | Organization | [facility] | + + + | Address | Unknown | + + + | Phone | Unavailable | + + + Support + + + + + | Name | Relationship | Address | Phone | + + + + + | Casandra Smith | ROBERTO | [place] | | + + + + + Care Team Providers + +------+ + | Care Paste Up Artist Apprentice Name | Role | Phone | + +------+ + | Yuki Pantoja MD | PCP | | + +------+ + Reason for Visit +--------+ + | Reason | Comments | +--------+ + | Other | documentation | +--------+ + | Other | documentation not done yet 07-18. | +--------+ + Encounter Details +--------+ + + + + | Date | Type | Department | Care Team | Description | +--------+ + + + + | 07/11/ | Telephone | [facility] | Kalyan Arias MD | Other | | 2008 | | [facility] [address] | [address] | (documentation); | | | | [address] | [address] | Other (documentation | | | | Mailcode: [id number] | [place], [place] | not done yet | | | | [facility] | [address] | 07-18.) | | | | [place], [place] | [phone] | | | | | [address] | | | | | | [phone] | | | +--------+ + + + [...]
--- OUTSIDE RECORDS SUMMARY | ~2020-05-01 | XMS | Encounter Summary ---
Demographics + + + | Address | [address] | | | [place] [address] | + + + | Home Phone | | + + + | Preferred Language | Unknown | + + + | Marital Status | Single | + + + | Uatsdin Affiliation | PRE | + + + | Race | White | + + + | Ethnic Group | Not or | + + + Author + + + | Author | [facility] | + + + | Organization | [facility] | + + + | Address [...] Team Providers + +------+ + | Care Box Packer Name | Role | Phone | + +------+ + PCP | Unavailable | + +------+ + Encounter Details +--------+ + + + + | Date | Type | Department | Care Team | Description | +--------+ + + + + | 06/04/ | Office | [facility] | Note, Orthopedics | Progress Note | | 2001 | Visit-Trans | | Clinic | | [...] as of this encounter Progress Notes Interface, Airfreight Operations Agent In - 05/17/2006 3:10 AM PDTCLINIC DATE: 06/04/2002 ORTHOPEDIC CLINIC HISTORY: This is a 42-year-old obese female followed for right hip degenerative joint disease. She returns to clinic early having been started on Lipitor with a subsequent rhabdomyolysis reaction. She reports that her hip is just beginning to have a return in the pain after its last injection in February 2002. The pain is not severe enough that she desires another injection. At this time, the pain is located in the groin. She is, however, requesting additional physical therapy and hydrotherapy. PHYSICAL EXAMINATION EXTREMITIES: She ambulates with a right moderate coxalgic gait. Hip range of motion is not specifically measured, but is essentially grossly unchanged from her January 2002 clinic examination. SKIN: Slightly dark but intact. DIAGNOSTIC STUDIES: X-rays none today. ASSESSMENT: Endstage right hip degenerative joint disease. DISPOSITION: We have provided her with a physical therapy prescription to be seen one time a week for 6 weeks and a Home Exercise Program and exercise hydrotherapy pool. She will call when her symptoms are severe enough that she needs another hip injection ordered and follow up with us on a p.r.n. basis after that. I am hopeful that we will be able to delay her total hip as long as possible, ideally, until she is at least 49 years old. However, if her pain progresses to the point where she is no longer receiving relief from her injections or the relief is lasting less than 3 months, I believe that we should proceed with a total hip arthroplasty at that point. Lloyd Garcia M.D. Social And Political Studies Professor, Orthopedics and Rehabilitation / [id number] / [id number] / [id number] / [id number] cc: Ninfa Guillen M.D. [address] [place] [address] [id number] signed by Interface, Airfreight Operations Agent In at 05/17/2006 3:1 0 AM PDTInterface, Airfreight Operations Agent In - 05/17/2006 3:10 AM PDTCLINIC DATE: 06/04/2002 ORTHOPEDIC CLINIC HISTORY OF PRESENT ILLNESS: Ms. Galdamez is a 41-year-old female who we have been following here for right hip pain and have been giving her therapeutic hip injections that have been helping her to get along. Today, she comes to the clinic as part of a mistake. She was told to follow up here for some rhabdomyolysis that she incurred from some Lipitor medications that was started by her PCP. She was then seen at the Emergency Department and told to follow up with her orthopedist. Since then, she has stopped the Lipitor and has also undergone a sleep study which they told her she had restless leg syndrome. As far as her right hip pain is concerned, the patient states that the pain is slowly starting to come back, and she thinks she will need a hip injection here in the next few months. She also requests some physical therapy as that had helped in the past. PHYSICAL EXAMINATION: As far as her right hip is concerned, we did not do a full examination today as it was not warranted. She is able to walk with only a slight limp, and she does use a cane for assistance. ASSESSMENT: Right hip degenerative joint disease. PLAN: Due to this mistaken clinic visit, we will send her back to her primary care physician to follow up with this rhabdomyolysis incurred from Lipitor treatment. We will give her some Physical Therapy prescription for her hip and her low back including exercise of thermal modalities, exercise pool, and whirlpool. We told the patient to call us back at such time that she cannot bear the right hip pain anymore, and we will schedule her for a right hip injection at that time. MD Lloyd Causey M.D. SAMANTHA / [facility] [id number] / [id number] / [id number] / Tdocumented in this encounter Plan of Treatment Not on filedocumented as of this encounter Visit Diagnoses Not on filedocumented in this encounter"
--- OUTSIDE RECORDS SUMMARY | ~2020-05-01 | XMS | Encounter Summary ---
Demographics + + + | Address | [address] | | | [place] [address] | + + + | Home Phone | | + + + | Preferred Language | Unknown | + + + | Marital Status | Single | + + + | Confucianism Affiliation | PRE | + + + | Race | White | + + + | Ethnic Group | Not or | + + + Author + + + | Author | [facility] | + + + | Organization | [facility] | + + + | Address [...] Team Providers + +------+ + | Care In Home Sales Consultant Name | Role | Phone | + +------+ + PCP | Unavailable | + +------+ + Encounter Details +--------+ + + + + | Date | Type | Department | Care Team | Description | +--------+ + + + + | 12/01/ | Office | [facility] | Note, Orthopedics | Progress Note | | 2004 | Visit-Trans | | Clinic | | [...] as of this encounter Progress Notes Interface, Landing Gear Mechanic In - 04/28/2005 10:57 PM PDTClinic Date: 12/02/2003 Orthopedic Subjective: A 43-year-old woman follows for 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 Her history is well detailed in my prior clinic notes. Her most recent surgery was wound closure on October 08, 2003. Her initial surgery, cheilectomy for degenerative hip disease on August 16, 2003, with a subsequent ORIF of loss of reduction of her greater trochanter on September 13, 2003, and I D of wound infection on September 25, 2003, with multiple irrigations and debridements prior to her wound closure on October 08, 2003. She has had a pigtail catheter placed in a fluid-filled cavity that extended to the subcutaneous tissues on November 22, 2003, approximately 1-1/2 weeks ago. The fluid from that wound showed many PMNs; no epithelial cells or organisms, and there is no growth in final for bacteria, and the preliminary AFB and fungal stains were all negative as well. She has stopped her intravenous nafcillin and still has a PICC line in place and started dicloxacillin which resulted in nausea nearly to the point of vomiting and difficulty with time and during meals. She has also had diarrhea and continues on her metronidazole. She has had no documented fevers but does note some hot flashes, although her past medical history is significant for total hysterectomy and oophorectomy. Physical Examination General: Notably obese female. Vital Signs: Weight 248 pounds with a height of 5 feet and 4 inches, respiratory rate of 16, temperature 97.5, and blood pressure 130/86. 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 She does not have pain with hip motion. There is approximately 10 to 15 mL of turbid serosanguineous fluid in her Pacheco-Christensen drain that has accumulated over the past 8 hours. There is no cellulitis, lymphangitis, or fluctuance appreciated. I am unable to increase the output by the pressure around the catheter entry site. Hip motion is not particularly painful. Laboratory Studies: Laboratory studies show that her white count remains at the upper limits of normal at 11 which is up slightly from 10.3 at the last visit that had been normal. However, throughout her recent course, her C-reactive protein level and erythrocyte sedimentation rate are pending today. On the last check on November 18, 2003, her C-reactive protein level had returned to normal at 0.8, and her erythrocyte sedimentation rate had increased to 39 from 3 on November 03, 2003. However, this truly may be a spuriously low value as prior to that it was 67 on October 21, 2003, and 86 on October 13, 2003. Assessment: Clinically healed right lateral hip wound with decreasing drainage and signs of her infection have responded to antibiotics and drainage. Disposition: I have removed her PICC line by cleaning the dressing. We cleaned up her pigtail catheter site and applied a new clean dressing there. She will get a home-health nurse visit for a dressing change there. She has been advised not to shower but to sponge bathe and to keep the site clean. I have advised her to start yogurt with active cultures and acidophilus milk, and we switched her antibiotics to Keflex 500 mg p.o. q.i.d. She will complete her course of Flagyl as well. She will return to clinic in 1 week's time. We will check her CBC, ESR, and CRP labs at that time. X-rays will not be required. I plan to remove the pigtail catheter when the drainage stops. The antibiotics will be continued at least 6 weeks orally for the dicloxacillin or Keflex whichever she can tolerate better. On the Flagyl, she will complete her current supply and not need a refill. Lloyd Garcia M.D. Hot Press Operator of Orthopedics and Rehabilitation / [id number] / [id number] / [id number] / [id number] cc: Leonel Floyd M.D. [address] [place], [place] [id number] signed by Interface, Landing Gear Mechanic In at 04/28/2005 10:57 PM PDTdocumented in this encounter Plan of Treatment Not on filedocumented as of this encounter Visit Diagnoses Not on filedocumented in this encounter"
--- OUTSIDE RECORDS SUMMARY | ~2020-05-01 | XMS | Encounter Summary ---
Demographics + + + | Address | [address] | | | [place] [address] | + + + | Home Phone | | + + + | Preferred Language | Unknown | + + + | Marital Status | Single | + + + | Latter Day Affiliation | PRE | + + + | Race | White | + + + | Ethnic Group | Not or | + + + Author + + + | Author | [facility] | + + + | Organization | [facility] | + + + | Address [...] Team Providers + +------+ + | Care Weighmaster Lead Name | Role | Phone | + +------+ + | Yuki Pantoja MD | PCP | | + +------+ + Encounter Details +--------+ + + + + | Date | Type | Department | Care Team | Description | +--------+ + + + + | 10/11/ | DELETED | Preoperative | Consult, | ANESTHESIA/SEDATION | | 2003 | TRANSCRIPTI | Medicine Clinic at | Anesthesia [address] | | | | ON | [facility] 4th Floor [address] | | | | | [address] [place], [place] | | | | | Mailcode: [id number] | [id number] | | | | | [facility] | | | | | | and Healing, | | | | | | Building [address]4th Floor | | | | | | [place], [place] | | | | | | [address] | | | | | | [phone] | | | +--------+ + + + [...] | + +--------+ + + + | ANESTHESIA/SEDATION | | 10/11/2003 | | Results for this | | | | 10:54 AM | | procedure are in the | | | | PST | | results section. | + +--------+ + + + documented in this encounter Visit Diagnoses Not on filedocumented in this encounter"
--- OUTSIDE RECORDS SUMMARY | ~2020-05-01 | XMS | Encounter Summary ---
Demographics + + + | Address | [address] | | | [place] [address] | + + + | Home Phone | | + + + | Preferred Language | Unknown | + + + | Marital Status | Single | + + + | Yarsanism Affiliation | PRE | + + + [...] Team Providers + +------+ + | Care Instrument Lens Inspector Name | Role | Phone | [...] | | | | | | | [place], | | | | | | | [place] [address] | +--------+--------+ + + + + Encounter Details +--------+---------+ + + + | Date | Type | Department | Care Team | Description | +--------+---------+ + + + | 09/08/ | Office | Radiation Oncology | Kevin Arenas MD | Heterotopic Tissue | | 2007 | Visit | at [facility] [address] | [address] | (Primary Dx) | | | | [address] | [place], [place] | | | | | [place], 4th floor | [address] | | | | | [place], [place] | [phone] | | | | | [address] | | | | | | [phone] | | | +--------+---------+ + + + [...] will treatment her today. KEVIN ARENAS MD [facility] RADIATION MEDICINE [facility] [place] [address] r Miller - 09/08/2008 2:21 PM PST [...] DAVID, bone graft and HO excision for circuit breaker mechanic masood osteoarthritis, HO formation, and non-union of [...]
--- OUTSIDE RECORDS SUMMARY | ~2020-05-01 | XMS | Encounter Summary ---
Demographics + + + | Address | [address] | | | [place] [address] | + + + | Home Phone | | + + + | Preferred Language | Unknown | + + + | Marital Status | Single | + + + | Temple Affiliation | PRE | + + + | Race | White | + + + | Ethnic Group | Not or | + + + Author + + + | Author | [facility] | + + + | Organization | [facility] | + + + | Address [...] Team Providers + +------+ + | Care Syrup Mixer Helper Name | Role | Phone | + +------+ + | Travis Mcginnis MD | PCP | | + +------+ + Encounter Details +--------+ + + + + | Date | Type | Department | Care Team | Description | +--------+ + + + + | 03/05/ | Telephone | Orthopaedics at | Kalyan Arias MD | | | 2010 | | [facility] [address] | [address] | | | | [address] | [address] | | | | | Mailcode: [id number] | [facility] [place] | | | | | [facility] | [address] | | | | | [place], [place] | [phone] | | | | | [address] | | | | | | [phone] | | | +--------+ + + + [...]
--- OUTSIDE RECORDS SUMMARY | ~2020-05-01 | XMS | Encounter Summary ---
Demographics + + + | Address | [address] | | | [place] [address] | + + + | Home Phone | | + + + | Preferred Language | Unknown | + + + | Marital Status | Single | + + + | Amish Affiliation | PRE | + + + [...] Team Providers + +------+ + | Care Retail Inventory Control Clerk Name | Role | Phone | + +------+ + PCP | Unavailable | + +------+ + Encounter Details +--------+ + + + + | Date | Type | Department | Care Team | Description | +--------+ + + + + | 11/18/ | Office | [facility] | Note, [...] as of this encounter Progress Notes Interface, Inventory Taker In - 04/28/2005 6:17 PM PDTClinic Date: 11/18/2003 Orthopedic History: A 43-year-old woman who underwent a right hip cheilectomy for degenerative joint disease on August 16, 2003, with the postoperative complication of loss of fixation of her greater trochanter osteotomy requiring open reduction internal fixation on September 13, 2003, which went on to develop a wound infection with methicillin-sensitive Staphylococcus aureus and anaerobes which was irrigated and debrided on September 25, 2003, and then treated with serial wound V.A.C. dressing changes until October 08, 2003, at which time then underwent a delayed primary closure with Dr. Araujo in Plastic Surgery. Since that point, she has gone onto improve clinically with normalization of her lab values but has developed some drainage and has been found to have by both ultrasound and CT scan a large loculated fluid filled space measuring up to 10 cm in maximum dimension and extending to within 5 mm of the skin which has drained intermittently somewhat cloudy fluid. She continues to get her home health intravenous antibiotics, and the home health nurse is also reopening the small hole in her incision to allow this fluid to drain periodically. We have had a tremendous difficulty getting her to allow us to place a pigtail catheter through Interventional Radiology over the past 2 weeks. My understanding has been that she has left against medical advice on more than one occasion being reticent to undergo an additional procedure after all she has been through and also not believing that she had a significant problem. She reports that she is able to ambulate with less use of her assistive devices and is scheduled for one more week of intravenous antibiotics unless an additional order is provided to extend it. The patient denies that she has not followed medical advice, as questioned her care along the way believing that she was getting "belly" CT instead of a CT of her hip, was not aware that she was supposed to have a drainage procedure, although when I spoke with the physicians in Interventional Radiology, they specifically told me that she refused the placement of a catheter, although she was potentially amenable to a single aspiration. Physical Examination: Obese woman with a healed U-shaped incision over her right lateral hip. There is no current active drainage. No carin cellulitis and definitely no lymphangitis. There is fluctuance under the incision extending anteriorly correlating with the regions identified on the CT and ultrasound studies previously. X-rays did show maturing heterotopic ossification in the right lateral hip region and the postsurgical changes on the greater trochanter and femoral head. The hip is reduced. The joint space is still maintained superiorly. Assessment: Right hip degenerative joint disease status post cheilectomy with postoperative wound infection after repeat open reduction internal fixation of greater trochanteric osteotomy, now with fluid accumulation concerning for possible abscess development, should she stop antibiotics. Disposition: We will continue to follow her laboratory studies. I have explained to her in the presence of her friend and my physician insurance assistant and resident here in the Orthopedic Clinic the absolute importance of draining this cavity. I have suggested that the catheter will be better than surgical drainage as it would not require serial dressing changes. I would suggest leaving the catheter in as long as it allows any drainage at all even though this is at some risk of creating a fistula track, it would be better than an abscess. She is a very poor candidate for any additional surgical intervention given her level of sophistication and inability to comply with instructions. At this point, we will schedule the interventional radiologist to perform an image-guided placement of a catheter and have requested that the fluid be sent for cell count and bacterial, acid fast bacilli, and fungal cultures and stains. She will be kept on antibiotics at least until the wound is adequately drained, and her lab values are normalized and possibly until the catheter is removed, and the wound is healed without any evidence for recurrent fluid accumulation or wound drainage. She will return to clinic in one week time for wound evaluation, review of her labs, and decision about continuing antibiotics. We will then would have the catheter and laboratory studies done as soon as possible. Lloyd Garcia M.D. Mobile Ui Designer of Orthopedics and Rehabilitation / [id number] / [id number] / [id number] / [id number] Tdocumented in this encounter Plan of Treatment Not on filedocumented as of this encounter Visit Diagnoses Not on filedocumented in this encounter
--- OUTSIDE RECORDS SUMMARY | ~2020-05-01 | XMS | Encounter Summary ---
Demographics + + + | Address | [address] | | | [place] [address] | + + + | Home Phone | | + + + | Preferred Language | Unknown | + + + | Marital Status | Single | + + + | Church Affiliation | PRE | + + + [...] Team Providers + +------+ + | Care Brazing Machine Setter Name | Role | Phone | + +------+ + PCP | Unavailable | + +------+ + Reason for Referral Consultation (Routine) +--------+--------+ + + + + | Status | Reason | Specialty | Diagnoses / | Referred By | Referred To | | | | | Procedures | Contact | Contact | +--------+--------+ + + + + | Closed | | Orthopedics | Diagnoses | [place] | Olivia, | | | | | | MD Lloyd | MD Gino | | | | | Osteoarthrit | [address] | [address] | | | | | is of hip | [facility] | [address] | | | | | Procedures | Rd | Rd [place], | | | | | CONSULT TO | [place], [place] | [place] [address] | | | | | ORTHOPEDICS | [address] | | | | | | AND | | | | | | | REHABILITATI | | | | | | | ON | | | +--------+--------+ + + + + Reason for Visit + + + | Reason | Comments | + + + | Follow-up encounter | hip injection | + + + Office Visit - E/M Services (Routine) +--------+--------+ + + + + | Status | Reason | Specialty | Diagnoses / | Referred By | Referred To | | | | | Procedures | Contact | Contact | +--------+--------+ + + + + | Closed | | Orthopedics | | Curtis, | Jose, | | | | | | Quintin I | MD Lloyd | | | | | | UMATILMARIJA | [address] [facility] | | | | | | MEDICAL | [facility] | | | | | | CLINIC [address] | [address] | | | | | | [address] | [place] | | | | | | [place], [place] | [address] | | | | | | [address] | | +--------+--------+ + + + + Encounter Details +--------+---------+ + + + | Date | Type | Department | Care Team | Description | +--------+---------+ + + + | 07/18/ | Office | Orthopaedics at | Lloyd Garcia MD | Osteoarthritis of | | 2005 | Visit | [facility] [address] | | Hip (Primary Dx); | | | | [address] | | Hip Pain | | | | Mailcode: [id number] | | | | | | [facility] | | | | | | [place], [place] | | | | | | [address] | | | | | | [phone] | | | +--------+---------+ + + + [...] + + + + | Temperature | 36.1 C (97 F) | 07/18/2006 10:31 AM | | | | | PDT [...] + + + + | Weight | - | - | | + + + + + | Height | - | - | | + + + + + | Body Mass Index | - | - | | + + + + + documented in this encounter Progress Notes Lloyd Garcia - 07/18/2006 3:30 PM PDT Clinic Date: 07/18/06 Orthopedic History: 46-year-old woman who was last seen on 05/23/2004, for hip pain who returns to [facility] after a right hip injection arthrogram on 06/11/06. She reports that she had no relie f of her hip pain, which is burning in character and locater posterior-superiorly in the glu teal region as well as laterally and in the groin, but that she the injection caused a painf ul "twisting down to her kneecap." She also didn't get the lateral hip injection she asked for "like before" because the radiologist wouldn't do it since it "wasn't ordered." She is also concerned that they didn't inject enough medicine. I couldn't find any report of any l ateral hip injection and the report indicates that 2cc of 40mg/cc Depomedrol was injected in to the hipjoint. On my review od the images the contrast was in the joint capsule but on th e saved images did not extend between the joint surfaces as on prior studies. She states th at she was on 4 types of antibiotics until Saturday (07/14/06) for a "leg" infection after mul tiple tests ("took blood") were ordered by her PCP. She doesn't know which antibiotics, wha t tests or even the location of the infection. Finally, and perhaps most importantly her PC P is "cutting off" her pain medications unless, she states, that he recieves a letter from [facility] indicating the continued need. She has a healed right lateral hip wound infection after cheilectomy for right hip arthrit is followed by ORIF of loss of reduction of the greater trochanter followed by a postoperati ve wound infection. Her most recent surgery was closure of her wound, over drained on 2003. She was referred back by Dr. Baker who has followed her in the interim for consideration of a a right total hip arthroplasty. She had 9 days of complete pain relief last winter from an arthrogram with 40 mg of depo-medrol and was wondering if a stronger dose could be used t o prolong pain relief. She in no longer using her brace, but does ambulate with a cane. e rates her pain at 9/10 and requires narcotics. Denies fever, chills or drainage from woun d. Physical Examination Temperature 97. General: An obese 220-pound woman standing 5 feet tall and pain rated at 9/10 in severity. Her right hip wound is completely healed. Range of motion 0-100 flexion, 30 abduction, addu ction, internal and external rotation each - with pain at the extremes.There is no fluctuanc e or erythema. There is significant tenderness to even light touch in the distal extent of h er U incission which is firmly adherent to brawny deep tissue - possibly her heterotopic bon e. Severe gluteus medius limp. Xrays: Radiologist 1: Raegan ALMAGUER M.D. EXAM: FLUOROSCOPIC GUIDANCE AND INJECTION OF THE RIGHT HIP COMPARISON: 05/23/06 and prior a rthrogram 12/18/05 HISTORY: Chronic hip pain PROCEDURE: The benefits and risks of the procedure were explained to the patient and all qu estions were answered. Written informed consent was obtained. The patient was placed supin e on the fluoroscopy table and the skin was prepped and draped in the usual sterile fashion. 2% lidocaine was used for local anesthesia. A 22 gauge spinal needle was placed into the joint from anterolateral approach and 2 cc of Hypaque was injected to confirm intra-articular position. 5 mL of bup ivacaine (5 mg/cc) and 2 cc of Depo-Medrol (40mg/cc) was then injected into the joint. Injection of an additional 2 cc of contrast reconfirmed intra-articular position following injection, with contrast outlining the base of femoral n carrol. The needle was removed. No complications were present. FINDINGS: Chronic postsurgical changes and heterotopic bone are unchanged in appearance. There is chronic degenerative joint disease with prominent spurring at the base of the femor al head. The joint is narrowed medially. Contrast outlined the collar of osteophytes at the base of the femoral head, confirm intra-articular position. Patient did not appreciate any significant immediate pain relief after completion of the procedure. IMPRESSION: 1. Technically successful injection of the right hip with 5 cc (5 mg per cc) of bupivicaine and 2 cc of Depo-Medrol (40 mg per cc). 2. The patient did not not report a ny significant pain relief at completion of the procedure display confirmation of intra-aleksandr cular injection. 3. Chronic postsurgical and advanced degenerative deformity of the hip. Assessment: Clinically healed right postoperative hip wound with no evidence of active infe ction but significant degenerative joint disease, abductor deficiency and heterotopic bone f ormation. 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 Additionally if she had a complications she may b e left with the need for a resection arthroplasty. Given these risks, and her generalized l ack of sophistication in understanding her medical conditions and limitations, I am not will ing to perform total hip replacement because, in my hands, I believe the risks (infection, d islocation, failure to alleviate symptopms, etc.) are too high. Dr. Baker has indicated that he would be willing to do a total hip arthroplasty for this patient who is no longer respon ding to injections. I am therefore referring her back to him for further consideration of t otal hip arthroplasty. More than half of her 40 minute visit was spent in counselling. Lloyd Garcia M.D. Orthopedics and Rehabilitation documented in this encounter Plan of Treatment [...]
--- OUTSIDE RECORDS SUMMARY | ~2020-05-01 | XMS | Encounter Summary ---
Demographics + + + | Address | [address] | | | [place] [address] | + + + | Home Phone [...] Team Providers + +------+ + | Care Director Of Partner Marketing Name | Role | Phone | + +------+ + PCP | Unavailable | + +------+ + Encounter Details +--------+ + + + + | Date | Type | Department | Care Team | Description | +--------+ + + + + | 08/22/ | Results | Orthopaedics at | Gino Baker MD | | | 2004 | Only | [facility] [address] | [address] | | | | | [address] | [address] [place], | | | | | Mailcode: [id number] | [place] [address] | | | | | [facility] | | | | | | [place] | | | | | | [address] | | | | | | [phone] | | | +--------+ + + + [...] as of this encounter Plan of Treatment + +---------+--------+ + + | Name | Type | Priori | Associated Diagnoses | Date/Time | | | | ty | | | + +---------+--------+ + + | MRI OUTSIDE FILMS | Imaging | Routin | | 08/22/2005 12:00 AM | | | | e | | PST | + +---------+--------+ + + documented as of this encounter Visit Diagnoses Not on filedocumented in this encounter"
--- OUTSIDE RECORDS SUMMARY | ~2020-05-01 | XMS | Encounter Summary ---
Demographics + + + | Address | [address] | | | [place] [address] | + + + | Home Phone | | + + + | Preferred Language | Unknown | + + + | Marital Status | Single | + + + | Yazidi Affiliation | PRE | + + + [...] Team Providers + +------+ + | Care Asphalt Machine Operator Name | Role | Phone | + +------+ + | Travis Mcginnis MD | PCP | | + +------+ + Encounter Details +--------+ + + + + | Date | Type | Department | Care Team | Description | +--------+ + + + + | 03/01/ | Abstract | Infectious | [facility] | | | 2010 | | Diseases at [facility] | MEGAN Reddy [address] | | | | | [address] | [address] | | | | | Loop [facility] | [place], [place] | | | | | [place], 3rd floor | [address] | | | | | [place], [place] | [phone] | | | | | [address] | | | | | | [phone] | | | +--------+ + + + [...] + | CBC, WITH | Routin | 03/01/2011 | | Results for this | | DIFFERENTIAL | e | 9:55 AM | | procedure are in the | | | | PDT | | results section. | + +--------+ + + + | COMPLETE METABOLIC | Routin | 03/01/2011 | | Results for this | | SET | e | 9:55 AM | | procedure are in the | | (NA,K,CL,CO2,BUN,CRE | | PDT | | results section. | | AT,GLUC,CA,AST,ALT,B | | | | | | BRISEYDA TOTAL,ALK | | | | | | PHOS,ALB,PROT TOTAL) | | | | | + +--------+ + + + documented in this encounter Results CBC, WITH DIFFERENTIAL (03/01/2011 9:55 AM PDT) + +-------+ + + + | Component | Value | Ref Range | Performed | Pathologist | | | | | At | Signature | + +-------+ + + + | WHITE CELL | 7.8 | K/cu mm | [facility] | | | COUNT | | | MED[facility] | | | | | | [facility] - | | | | | | [place] | | + +-------+ + + + | RED CELL | 4.86 | M/cu mm | [facility] | | | COUNT | | | MEDICAL | | | | | | [facility] - | | | | | | [place] | | + +-------+ + + + | HEMOGLOBIN | 14.1 | 12.1999 - 15 | [facility] | | | | | g/dL | MEDICAL | | | | | | CENTER - | | | | | | [place] | | + +-------+ + + + | HEMATOCRIT | 41.2 | % | [facility] | | | | | | MED[facility] | | | | | | [facility] - | | | | | | [place] | | + +-------+ + + + | MCV | 85 | fL | [facility] | | | | | | MEDICAL | | | | | | [facility] - | | | | | | [place] | | + +-------+ + + + | MCH | 29 | pg | [facility] | | | | | | MEDICAL | | | | | | [facility] - | | | | | | [place] | | + +-------+ + + + | MCHC | 34.2 | g/dL | [facility] | | | | | | MEDICAL | | | | | | [facility] - | | | | | | [place] | | + +-------+ + + + | PLATELET | 367 | K/cu mm | [facility] | | | COUNT | | | MEDICAL | | | | | | [facility] - | | | | | | [place] | | + +-------+ + + + | NEUTROPHIL | 59.2 | % | [facility] | | | % | | | MEDICAL | | | | | | [facility] - | | | | | | [place] | | + +-------+ + + + | LYMPHOCYTE | 32.5 | % | [facility] | | | % | | | MEDICAL | | | | | | [facility] - | | | | | | [place] | | + +-------+ + + + | MONOCYTE % | 6.1 | % | [facility] | | | | | | MED[facility] | | | | | | [facility] - | | | | | | [place] | | + +-------+ + + + | EOS % | 1.5 | % | [facility] | | | | | | MEDICAL | | | | | | [facility] - | | | | | | [place] | | + +-------+ + + + | BASO % | 0.7 | % | [facility] | | | | | | MEDICAL | | | | | | [facility] - | | | | | | [place] | | + +-------+ + + + | RDW | 14.5 | % | [facility] | | | | | | MED[facility] | | | | | | [facility] - | | | | | | [place] | | + +-------+ + + + | MPV | | fL | [facility] | | | | | | MEDICAL | | | | | | [facility] - | | | | | | [place] | | + +-------+ + + + | NEUTROPHIL | 4.6 | K/cu mm | [facility] | | | # | | | MEDICAL | | | | | | [facility] - | | | | | | [place] | | + +-------+ + + + | LYMPHOCYTE | 2.5 | K/cu mm | [facility] | | | # | | | MEDICAL | | | | | | [facility] - | | | | | | [place] | | + +-------+ + + + | MONOCYTE # | 0.5 | K/cu mm | [facility] | | | | | | MEDICAL | | | | | | [facility] - | | | | | | [place] | | + +-------+ + + + | EOS # | 0.1 | K/cu mm | [facility] | | | | | | MEDICAL | | | | | | [facility] - | | | | | | [place] | | + +-------+ + + + | BASO # | 0.1 | | [facility] | | | | | | MEDICAL | | | | | | [facility] - | | | | | | [place] | | + +-------+ + + + | PHOSPHORUS, | 3.9 | mg/dL | [facility] | | | PLASMA | | | MEDICAL | | | (LAB) | | | CENTER - | | | | | | [place] | | + +-------+ + + + + + | Specimen | + + | Blood - Blood | + + + + + + + | Performing | Address | City/State/Zipcode | Phone Number | | Organization | | | | + + + + + | [facility] | [address] | [place] [address] | | | [facility] - [place] | | | | + + + + + COMPLETE METABOLIC SET (NA,K,CL,CO2,BUN,CREAT,GLUC,CA,AST,ALT,BILI TOTAL,ALK PHOS,ALB,PROT TOTAL) (03/01/2011 9:55 AM PDT) + +-------+ + + + | Component | Value | Ref Range | Performed | Pathologist | | | | | At | Signature | + +-------+ + + + | GLUCOSE, | 106 | 65 - 110 mg/dL | [facility] | | | PLASMA | | | MEDICAL | | | (LAB) | | | CENTER - | | | | | | [place] | | + +-------+ + + + | BUN, PLASMA | 10 | mg/dL | [facility] | | | (LAB) | | | MEDICAL | | | | | | CENTER - | | | | | | [place] | | + +-------+ + + + | CREATININE | 0.7 | mg/dL | [facility] | | | PLASMA | | | MEDICAL | | | (LAB) | | | CENTER - | | | | | | [place] | | + +-------+ + + + | TOTAL | 7.4 | g/dL | [facility] | | | PROTEIN, | | | MEDICAL | | | PLASMA | | | CENTER - | | | (LAB) | | | [place] | | + +-------+ + + + | ALBUMIN, | 3.8 | g/dL | [facility] | | | PLASMA | | | MEDICAL | | | (LAB) | | | CENTER - | | | | | | [place] | | + +-------+ + + + | CALCIUM, | 9.2 | mg/dL | [facility] | | | PLASMA | | | MEDICAL | | | (LAB) | | | CENTER - | | | | | | [place] | | + +-------+ + + + | BILIRUBIN | 0.3 | Transcutaneous | [facility] | | | TOTAL | | Bilirubinometer | MEDICAL | | | | | | CENTER - | | | | | | [place] | | + +-------+ + + + | ALK PHOS | 72 | U/L | [facility] | | | | | | MEDICAL | | | | | | [facility] - | | | | | | [place] | | + +-------+ + + + | AST(SGOT) | 10 | U/L | [facility] | | | | | | MEDICAL | | | | | | C[facility] - | | | | | | [place] | | + +-------+ + + + | SODIUM, | 141 | mmol/L | [facility] | | | PLASMA | | | MEDICAL | | | (LAB) | | | CENTER - | | | | | | [place] | | + +-------+ + + + | POTASSIUM, | 4.4 | mmol/L | [facility] | | | PLASMA | | | MEDICAL | | | (LAB) | | | CENTER - | | | | | | [place] | | + +-------+ + + + | CHLORIDE, | 107 | mmol/L | [facility] | | | PLASMA | | | MEDICAL | | | (LAB) | | | CENTER - | | | | | | [place] | | + +-------+ + + + | TOTAL CO2, | 30 | mmol/L | [facility] | | | PLASMA | | | MEDICAL | | | (LAB) | | | CENTER - | | | | | | [place] | | + +-------+ + + + | ALT (SGPT) | 14 | U/L | [facility] | | | | | | MEDICAL | | | | | | CENTER - | | | | | | [place] | | + +-------+ + + + | SEDIMENTATI | 29 | mm/hr | [facility] | | | ON RATE | | | MEDICAL | | | | | | CENTER - | | | | | | [place] | | + +-------+ + + + + + | Specimen | + + | Blood - Blood | + + + + + + + | Performing | Address | City/State/Zipcode | Phone Number | | Organization | | | | + + + + + | [facility] | [address] | [place] [address] | | | [facility] - [place] | | | | + + + + + documented in this encounter Visit Diagnoses Not on filedocumented in this encounter"
--- OUTSIDE RECORDS SUMMARY | ~2020-05-01 | XMS | Encounter Summary ---
Demographics + + + | Address | [address] | | | [place] [address] | + + + | Home Phone [...] Author + + + | Author | [facility] | + + + | Organization | [facility] | + + + | [...] | +--------+ + + + + | 08/11/ | Telephone | Orthopaedics at | Kalyan Arias MD | | | 2008 | | [facility] [address] | [address] | | | | | [address] | [address] | | | | | Mailcode: [id number] | [place], [place] | | | | | [facility] | [address] | | | | | [place], [place] | [phone] | | | | | [address] | | | | | | [phone] | | | +--------+ + + + [...]
--- OUTSIDE RECORDS SUMMARY | ~2020-05-01 | XMS | Encounter Summary ---
Demographics + + + | Address | [address] | | | [place] [address] | + + + | Home Phone | | + + + | Preferred Language | Unknown | + + + | Marital Status | Single | + + + | Shinto Affiliation | PRE | + + + | Race | White | + + + | Ethnic Group | Not or | + + + Author + + + | Author | [facility] | + + + | Organization | [facility] | + + + | [...] Team Providers + +------+ + | Care Junior Buyer Name | Role | Phone | + +------+ + | Marta Jenkins EXCEPTIONAL NEEDS TEACHER | PCP | | + +------+ + Encounter Details +--------+ + + + + | Date | Type | Department | Care Team | Description | +--------+ + + + + | 12/03/ | Ancillary | Registration [address] | Gino Baker MD | | | 2005 | Registratio | [address] | [address] | | | | n | Jamie Mailcode: [id number] [place], | | | | | [place], [place] | [place] [address] | | | | | [address] | | | | | | [phone] | | | +--------+ + + + [...]
--- OUTSIDE RECORDS SUMMARY | ~2020-05-01 | XMS | Encounter Summary ---
Demographics + + + | Address | [address] | | | [place] [address] | + + + | Home Phone [...] Team Providers + +------+ + | Care Graduate Student Instructor Name | Role | Phone | + +------+ + PCP | Unavailable | + +------+ + Encounter Details +--------+ + + + + | Date | Type | Department | Care Team | Description | +--------+ + + + + | 06/24/ | Results | | Other, Faculty | | | 2000 | Only | | [phone] | | +--------+ + + + + [...] ARTHROGRAM HIP SUP & | Routin | 06/24/2000 | | Results for this | | INT | e | 10:58 AM | | procedure are in the | | | | PDT | | results section. | + +--------+ + + + documented in this encounter Results ARTHROGRAM HIP SUP & INT (06/24/2000 10:58 AM PDT) + + + + + + | Component | Value | Ref Range | Performed | Pathologist | | | | | At | Signature | + + + + + + | ARTHROGRAM | Radiologist 1: | | | | | HIP SUP & | DARIN, | | | | | INT | MICHAELARTHROGRAM OF THE | | | | | | RIGHT HIP WITH | | | | | | THERAPEUTIC INJECTION: | | | | | | 06/24/00 DICTATED: | | | | | | 06/25/00 INDICATION: | | | | | | The patient is a | | | | | | 40-year-old female with | | | | | | degenerativechanges of | | | | | | the right hip. Please | | | | | | perform arthrogram and | | | | | | therapeuticinjection. | | | | | | DISCUSSION: The risks | | | | | | and benefits of the | | | | | | procedure were | | | | | | discussedwith the | | | | | | patient and both written | | | | | | and oral consent was | | | | | | obtained. Theright hip | | | | | | was marked under | | | | | | fluoroscopic guidance | | | | | | after the femoralpulse | | | | | | was marked. This area | | | | | | was prepped and draped | | | | | | in the usualsterile | | | | | | fashion and 1% lidocaine | | | | | | was used for local | | | | | | anesthesia. A 22gauge | | | | | | spinal needle was then | | | | | | introduced into the | | | | | | joint | | | | | | capsule.Approximately 1 | | | | | | cc of Hypaque-60 | | | | | | contrast was injected to | | | | | | assureintra-articular | | | | | | position then 7 cc of a | | | | | | solution of (2 cc | | | | | | Celestoneand 5 cc | | | | | | Marcaine) was injected | | | | | | into the joint. Only | | | | | | one additionalcc cc of | | | | | | contrast was able to be | | | | | | injected, till high | | | | | | resistance wasmet. There | | | | | | was marked narrowing of | | | | | | the right hip joint | | | | | | most pronouncedmedially. | | | | | | There is an | | | | | | osteophytic collar of | | | | | | the femoral head. | | | | | | Thereis associated | | | | | | thinning of the | | | | | | articular cartilage of | | | | | | the medialacetabulum and | | | | | | medial femoral head. | | | | | | The joint capsule held | | | | | | a lowvolume | | | | | | approximately 8 to 8.5 | | | | | | cc of fluid. There was | | | | | | a limited rangeof | | | | | | motion of the hip. | | | | | | Though the patient | | | | | | stated a | | | | | | therapeuticresponse, the | | | | | | limited range of motion | | | | | | continued probably due | | | | | | to theosteophytic | | | | | | collar. The patient | | | | | | stated her pre-procedure | | | | | | pain scalewas 4-5/10. | | | | | | After the procedure | | | | | | the patient ambulated | | | | | | and stated herpain scale | | | | | | was 0/10. The patient | | | | | | was informed to monitor | | | | | | her symptomsand report | | | | | | these findings to her | | | | | | orthopedic surgeon. | | | | | | The patienttolerated | | | | | | the procedure well | | | | | | without immediate | | | | | | complications. | | | | | | IMPRESSION: 1. | | | | | | Advanced degenerative | | | | | | changes of the right hip | | | | | | with thinning ofthe | | | | | | medial femoral and | | | | | | acetabular articular | | | | | | cartilage. 2. Low | | | | | | volume joint capsule | | | | | | consistent with adhesive | | | | | | capsulitis. 3. | | | | | | Limited range of | | | | | | motion which may be due | | | | | | to the | | | | | | osteophyticcollar. 4. | | | | | | Therapeutic response | | | | | | was noted. The patient | | | | | | was informed tomonitor | | | | | | her symptoms and report | | | | | | them to her orthopedic | | | | | | surgeon. Dr. Queen was | | | | | | present throughout the | | | | | | procedure and agreed | | | | | | with theinterpretation. | | | | | | END OF IMPRESSION: | | | | + + + + + + + + | Specimen | + + | | + + + + + | Narrative | Performed At | + + + | Ordered by JILLIAN DRISCOLL | | + + + + +---------+ + + | Performing | Address | City/State/Zipcode | Phone Number | | Organization | | | | + +---------+ + + | [facility] DEPARTMENT | | | | | RADIOLOGY | | | | + +---------+ + + documented in this encounter Visit Diagnoses Not on filedocumented in this encounter"
--- OUTSIDE RECORDS SUMMARY | ~2020-05-01 | XMS | Encounter Summary ---
Demographics + + + | Address | [address] | | | [place] [address] | + + + | Home Phone | | + + + | Preferred Language | Unknown | + + + | Marital Status | | + + + | Orthodoxy Affiliation | 1076 | + + + | Race | Unknown | + + + | Ethnic Group | Unknown | + + + Author + + + | Author | [facility] | | | and [place] | + + + | Organization | [facility] | | [...] Team Providers + +------+ + | Care Treasury Analyst Name | Role | Phone | + +------+ + | Eric Krishna MD | PCP | | + +------+ + Reason for Visit Auth/Cert +--------+--------+ + + + + | Status | Reason | Specialty | Diagnoses / | Referred By | Referred To | | | | | Procedures | Contact | Contact | +--------+--------+ + + + + | | | | Diagnoses | | | | | | | Kidney | | | | | | | stone Right | | | | | | | ureteral | | | | | | | stone | | | | | | | kidney | | | | | | | stone-right | | | | | | | right | | | | | | | ureteral | | | | | | | stone | | | | | | | Procedures | | | | | | | CYSTOSCOPY | | | | | | | URETEROSCOPY | | | | | | | W/ LASER | | | +--------+--------+ + + + + Encounter Details +--------+ + + + + | Date | Type | Department | Care Team | Description | +--------+ + + + + | 11/25/ | Hospital | [facility] | Rustam Schmid MD | | | 2017 | Encounter | MED CTR SURGICAL | [address] [facility] | | | | | [address] | [place] | | | | | [place] [address] | [address] | | | | | [phone] | [phone] | | | | | | | [...] + + + | Blood Pressure | 112/57 | 11/25/2016 12:10 PM | | | | | PST | | + + + + + | Pulse | 111 | 11/25/2016 12:10 PM | | | | | PST | | + + + + + | Temperature | 35.5 C (95.9 F) | 11/25/2016 12:10 PM | | | | | PST | | + + + + + | Respiratory Rate | 16 | 11/25/2016 12:10 PM | | | | | PST | | + + + + + | Oxygen Saturation | 93% | 11/25/2016 12:10 PM | | | | | PST | | + + + + + | Inhaled Oxygen | - | - | | | Concentration | | | | + + + + + | Weight | 134.3 kg (296 lb 1.2 | 11/25/2016 6:11 AM | | | | oz) | PST | | + + + + + | Height | 162.6 cm (5' 4") | 11/25/2016 6:11 AM | | | | | PST | | + + + + + | Body Mass Index | 50.82 | 11/25/2016 6:11 AM | | | | | PST | | + + + + + documented in this encounter Discharge Instructions Instructions Rustam Schmid MD - 11/25/2016Protect stent string by only gently touching wi th toilet paper after urinating. Only take showers until stent is removed. Expect blood in urine. You are prescribed an antibiotic, which might need to be switched upon return of cul ture results from [facility]. Stent may be removed by her rn medical inpatient services on Saturday or SaturdayDecember 03. AttachmentsThe following attachments cannot be sent through Care Everywhere.DIET, DISCHARGE INSTRUCTIONS FOR EATING A LOW-SALT (MALTESE)KIDNEY STONES,PREVENTING (MALTESE)documented in this encounter Medications at Time of Discharge + + + +---------+ + + | Medication | Sig | Dispensed | Refills | Start | End Date | | | | | | Date | | + + + +---------+ + + | albuterol | Inhale 1 puff every | | 0 | 06/13/20 | | | (VENTOLIN HFA) 90 | [...] + + + +---------+ + + | cephalexin | Take 1 capsule by | 28 | 0 | 11/25/19 | | | (KEFLEX) 500 mg | mouth 4 times daily | capsule | | 17 | 7 | | capsule | for 7 days. | | | | | + + [...] documented as of this encounter Progress Notes Jessica Klein RN - 11/25/2016 12:15 PM PSTBack to room 320 denies pain md in to see pt and gave scipt and okay to dc home when criteria met arium Cuenca RN - 11/25/2016 8:27 AM PSTDuring admission intervie w, pt reports she has a caregiver to help her at home. She has available a cane, fww, and w/ c. When asked if she feels safe returning to her place of residence she becomes hesitant and then responds she is afraid she will sprain her ankle. States she is very overweight and th is can cause problems with her mobilityElectronically signed by Marium Cuenca RN at 017 8:29 AM PSTMarium Cuenca RN - 11/25/2016 6:30 AM PSTArrived at 0545 via ground ambul ance from [facility] in [place]. C/o rt back/flank pain. Dry heaves noted. O2 at 2L via N C. Pt c/o sore lt arm and lt leg. Transfers w/2 assist to bsc to void, no stool. When she sa t on bsc, she stated the seat of commode pinched her lt posterior thigh. Visual check of ski n reveals no breakdown or bruising at this time. Placed on contact precautions on arrival d/ t hx of MRSA documented in this encounter H&P Notes Rustam Schmid MD - 11/25/2016 6:52 AM PST [facility] ADMIT HISTORY AND PHYSICAL Primary Care Physician: Eric Krishna PATIENT NAME: Shelby Galdamez : 1960 TODAY'S DATE: 11/25/2016 IMPRESSION: 1. Symptomatic right ureterolithiasis 2. COPD with asthma PLAN: 1. Right ureteroscopic laser lithotripsy with temporary stent. Procedure risks of infectio n, bleeding, failure to clear stones, ureteral stenosis with kidney obstruction is discussed . Preliminary discussion regarding calcium oxalate prevention diet. More than 50 minute be dside exam. 2. Nebulizer for COPD 3. Patient will receive appropriate VTE prophylaxis. CHIEF COMPLAINT: Right flank pain History OF PRESENT ILLNESS: Shelby Galdamez is a 56 y.o. female, transferred from [place] emergency room with s ymptomatic right ureterolithiasis. She faintly remembers voiding through a strainer for a p ossible previous stone but cannot remember dates. Last night around 2300 hrs. she developed nausea and right flank pain. She has had dysuria last month. She denies fever or gross he maturia. In the last month she is voiding hourly while awake and 4 times at night with dysu esa. She normally voids considerably less frequently but does have drops of stress incontin ence not requiring pads. She has been treated approximately 6 times in her life or UTI. D iet includes 6 cans of Mountain Dew and moderate sodium consumption as risk factors for neph rolithiasis. PAST MEDICAL HISTORY Past Medical History Diagnosis Date COPD with asthma (HCC) Chronic pain PAST SURGICAL HISTORY Appendectomy, cholecystectomy, twice, total abdominal hysterectomy, left knee rep air without hardware. Her right hip has been operated on at least 27 times. MEDICATIONS Prior to Admission medications Medication Sig Start Date End Date Taking? Authorizing Provider albuterol (VENTOLIN HFA) 90 mcg/puff inhaler Inhale 1 puff every 6 hours as needed for shor tness of breath 06/13/12 DATA MIGRATION RAFFY SR cyclobenzaprine (FLEXERIL) 10 mg tablet Take 10 mg by mouth Twice daily as needed. 06/13/12 DATA MIGRATION RAFFY SR docusate sodium (COLACE) 100 mg capsule Take 100 mg by mouth every 12 hours as needed. 06/13 DATA MIGRATION RAFFY SR HYDROcodone-acetaminophen (NORCO) 10-325 mg per tablet Take 10-325 mg by mouth every 6 hour s as needed. 06/13/12 DATA MIGRATION RAFFY SR omeprazole (PRILOSEC) 20 mg capsule Take 20 mg by mouth Daily. 06/13/12 DATA MIGRATION RAFFY SR oxyCODONE 10 MG TABS Take 5-10 mg by mouth every 4 hours as needed. Historical Provider, pantoprazole (PROTONIX) 40 mg tablet Take as directed. 06/13/12 DATA MIGRATION RAFFY SR UNCODED MEDICATION E0601 CPAP RES MED S9- MIN 9 cm MAX 16 cm; A7033 Nasal Pillows; A7032 Nasal Mask; A7030 Full Face Mask; E0562 Heated Humidifier; A7037 Heated Tubing; A7034 Cushions; A7036 Chinstrap; A7039 / A7038 Filters; AHI 57.1 Date of Most Recent Polysomnogram 09/18/2006 01/13/13 JORDY Scott UNCODED MEDICATION Diagnosis: Obstructive Sleep Apnea ICD-9: 327.23 Length of Need: 99 Months 10/01/12 JORDY Scott ALLERGIES Allergies Allergen Reactions Lipitor FAMILY HISTORY Not obtained SOCIAL HISTORY She lives alone and is disabled. She uses a walker. Two adult children live close to her home. Presently smoking one to 2 cigarettes per day. No history of alcohol abuse and curre ntly no alcohol intake. REVIEW OF SYSTEMS Chronic right hip and shoulder pain taking chronic narcotics. Normally a bowel movement da gigi. Prior history of stomach ulcer. Prior history of hepatitis. Occasional headache. No seizure, stroke, myocardial infarction, skin cancer, edema, hematochezia. She has C PAP bu t is presently not using machine because it needs cleansing. She has chronic shortness of b reath but does not use supplemental oxygen. She uses albuterol or albuterol nebulizer as ne eded. Last bowel movement was 11/22/16. PHYSICAL EXAM Temp: 36.4 C (97.5 F) BP: (!) 160/93 mmHg Pulse: 104 Resp: 20 SpO2: 96 % on Wt. Admission: Weight: 134.3 kg (296 lb 1.2 oz) Constitutional : very heavyset female in mild distress and demonstrating intermittent naus ea Eyes: anicteric HENT: symmetric facial expression Respiratory : minimal air movement with expiratory wheeze. She does not have labored ayse thing. She is on an oxygen supplement at this time. Cardiovascular : regular rate without murmur GI: abdomen protuberant with mild to moderate right upper quadrant tenderness but no rebo und or mass. : No costovertebral angle tenderness Musculoskeletal : Integument : warm and dry Lymphatic : No edema Neurologic : moving extremities with good strength, she is oriented Psychiatric : Normal affect under the circumstances Diagnostic Studies: Laboratory studies and imaging were personally reviewed by me. Chemistry: comprehensive chemistry normal except glucose 103 Hematology: CBC included white blood cell count 16.4, hematocrit 44.3, platelet count 384, 000 Urine: Catheterized urine sample demonstrated 10 red cells, greater than 50 white cells, c alcium oxalate crystals and rare bacteria Electronically Signed by: Rustam Schmid MD, 11/25/2016 7:05 [facility] documented in this enc ounter Nursing Notes Hugh Fung RN - 11/25/2016 11:21 AM PSTStent tether taped with tegaderm - intact.Elec tronically signed by Hugh Fung RN at 11/25/2016 11:22 AM PSTdocumented in this encount er Miscellaneous Notes Plan of Care - Carolina Ly RN - 11/25/2016 6:53 PM PSTDenies pain, voiding with out difficulty, ambulating and tolerating diet. All discharge criteria met. Discharge instr uctions reviewed with patient. Left with caregiver in stable condition. p Note - Rustam Schmid MD - 2016 11:00 AM [facility] Pt. Name/Age/: Shelby Galdamez 56 y.o. 1960 Med. Record Number: [id number] Date of Operation/Procedure: 11/25/2016 Preoperative Diagnosis: right ureteral stones [N20.1] Post-Op Diagnosis Codes: * Right ureteral stone [N20.1] Postoperative Diagnosis: Same Surgeon: Rustam Schmid MD Director Employee Communications(s): None Anesthesia Provider(s): Anesthesiologist: Helio Barkley MD Glue Sprayer: Rain Edouard Anesthesia Type: General Procedure(s): RIGHT URETEROSCOPIC LASER LITHOTRIPSY PLACEMENT RIGHT URETERAL STENT PLACEMENT Operative Indications: Shelby Galdamez is a 56 y.o. year old female transferred from [facility] several hours ago, with CT demonstrating a 6 mm and 3 mm right proximal ureteral stones. Her catheterized urine has many white cells and she received Rocephin. Operative Findings: Operation: The patient was identified as Shelby Galdamez and the procedure was confirm ed as stated above. The patient was placed in the supine position. SCD devices were applied . Following the induction of adequate general endotracheal anesthesia, legs were placed in l ithotomy in yellowfin stirrups and genitalia prepped and draped in the usual sterile fashion . A 23 Argentine cystoscope was introduced to the bladder with obturator. Very cloudy odorous urine was irrigated copiously with saline. The bladder had smooth randolph without tumor, and there was no stone in the bladder. A 0.035 inch diameter guidewire was threaded into the ri ght ureter and followed by fluoroscopy. The wire seemed to briefly reviewed with resistance in the proximal ureter then advanced laterally towards the area of the right renal pelvis. A 4 cm x 6 mm balloon was threaded over the safety wire and expanded easily at 4 gabriela across the intramural ureter. Dilating balloon and cystoscope were removed. A 25 cm x 14 Argentine ureteral access sheath was threaded over the safety wire and easily reached its full extent. Flexible ureteroscope was introduced. A dilated area was observed in the right ureteropel anneliese junction but no stone. Cloudy urine was irrigated from the right renal pelvis with mult iple cycles of saline. A right superior calyx now contained one of the stones and this was treated with holmium laser. Dilute contrast was injected highlighting renal pelvis anatomy and all branches visually inspected without additional stone. Access sheath was pulled back to the lower ureter. Ureteroscope was slowly withdrawn, not finding any additional stone w ithin the ureter. Cystoscope was placed back over the safety wire. A 6 Argentine by 26 cm diana ble-J stent was threaded over the safety wire. Cephalad tip coiled within the right renal p melani. Inferior tip coiled within the bladder. Stent string remained attached and was secu red to the pubic area with Tegaderm dressing. Estimated Blood Loss: none Transfused: no Drains: 6 Fr x 26 cm right ureteral stent Specimen (s): * No specimens in log * Complications: none Electronically Signed by: Rustam Schmid MD, 11/25/2016 11:01 [facility] documented in this enc ounter Plan of Treatment +--------+---------+ + + + | Date | Type | Specialty | Care Team | Description | +--------+---------+ + + + | 05/23/ | Office | Pain Medicine | Xiang Sepulveda, | | | 2019 | Visit | | DO [address] | | | | | | [place] | | | | | | [address] | | | | | | | | +--------+---------+ + + + documented as of this encounter Procedures + +--------+ + + + | Procedure Name | Priori | Date/Time | Associated Diagnosis | Comments | | | ty | | | | + +--------+ + + + | FL PYELOGRAM | Routin | 11/25/2016 | | Results for this | | RETROGRADE | e | 10:55 AM | | procedure are in the | | | | PST | | results section. | + +--------+ + + + | CYSTOSCOPY | | 11/25/2016 | Right ureteral | | | URETEROSCOPY W/ | | 9:16 AM | stone | | | LASER | | PST | | | + +--------+ + + + | ECG 12 LEAD | BERNARDO | 11/25/2016 | | Results for this | | | | 8:27 AM | | procedure are in the | | | | PST | | results section. | + +--------+ + + + | IMAGING REPORT - | | 11/25/2016 | | Results for this | | EXTERNAL SCAN | | 12:00 AM | | procedure are in the | | | | PST | | results section. | + +--------+ + + + | LABS - EXTERNAL SCAN | | 11/25/2016 | | Results for this | | | | 12:00 AM | | procedure are in the | | | | PST | | results section. | + +--------+ + + + documented in this encounter Results FL Pyelogram Retrograde (11/25/2016 10:55 AM PST) + + | Specimen | + + | | + + + + + | Narrative | Performed At | + + + | No Radiologist interpretation, please see Chart Review. | [facility] | + + + + +---------+ + + | Performing | Address | City/State/Zipcode | Phone Number | | Organization | | | | + +---------+ + + | [facility] | | | | + +---------+ + + ECG 12 lead (11/25/2016 8:27 AM PST) + + + + + + | Component | Value | Ref Range | Performed | Pathologist | | | | | At | Signature | + + + + + + | VENTRICULAR | 125 | BPM | [facility] | | | RATE EKG | | | | | + + + + + + | ATRIAL RATE | 125 | BPM | [facility] | | + + + + + + | P-R | 140 | ms | [facility] | | | INTERVAL | | | | | + + + + + + | QRS | 80 | ms | [facility] | | | DURATION | | | | | + + + + + + | Q-T | 318 | ms | [facility] | | | INTERVAL | | | | | + + + + + + | Q-T | 458 | ms | [facility] | | | INTERVAL | | | | | | (CORRECTED) | | | | | + + + + + + | P WAVE AXIS | 75 | degrees | [facility] | | + + + + + + | QRS AXIS | 72 | degrees | [facility] | | + + + + + + | T AXIS | 82 | degrees | [facility] | | + + + + + + | INTERPRETAT | Sinus | | [facility] | | | ION TEXT | tachycardiaOtherwise | | | | | | normal ECGNo previous | | | | | | ECGs availableConfirmed | | | | | | by AGUSTO AGUSTIN MD | | | | | | ([id number]) on 11/25/2016 | | | | | | 2:28:16 PM | | | | + + + + + + + + | Specimen | + + | | + + + + + | Narrative | Performed At | + + + | | | + + + + +---------+ + + | Performing | Address | City/State/Zipcode | Phone Number | | Organization | | | | + +---------+ + + | [facility] | | | | + +---------+ + + LABS - EXTERNAL SCAN (11/25/2016 12:00 AM PST) + + + | Narrative | Performed At | + + + | Ordered by an | | | unspecified provider. | | + + + IMAGING REPORT - EXTERNAL SCAN (11/25/2016 12:00 AM PST) + + + | Narrative | Performed At | + + + | Ordered by an | | | unspecified provider. | | + + + documented in this encounter Visit Diagnoses + + | Diagnosis | + + | Calculus of right ureter Calculus of ureter | + + | UTI (urinary tract infection) Urinary tract infection, site not specified | + + | Obstructive sleep apnea Obstructive sleep apnea (adult) (pediatric) | + + | Tobacco use Tobacco use disorder | + + | Morbid obesity with BMI of 50.0-59.9, adult (HCC) | + + documented in this encounter Administered Medications + +--------+ +-------+------+------+ | Medication Order | MAR | Action | Dose | Rate | Site | | | Action | Date | | | | + +--------+ +-------+------+------+ | albuterol-ipratropium (DUONEB) | Given | 11/25/19 | 3 mLs | | | | 2.5-0.5 mg/3 mL nebulizer | | 17 11:15 | | | | | solution 3 mL 3 mL, | | AM PST | | | | | Nebulization, ONCE PRN, Wheezing, | | | | | | | Shortness of Breath, Starting | | | | | | | 11/25/16 at 1028, For 1 dose, | | | | | | | Recovery/Phase I | | | | | | + +--------+ +-------+------+------+ +---+---+ | | | +---+---+ + +-------+ +-------+---+---+ | ketorolac (TORADOL) injection | Given | 11/25/19 | 30 mg | | | | 30 mg 30 mg, Intravenous, EVERY | | 17 8:35 | | | | | 6 HOURS PRN, Pain, Starting Sun | | AM PST | | | | | 11/25/16 at 0759, For 5 days | | | | | | + +-------+ +-------+---+---+ +---+---+ | | | +---+---+ + +---------+ +---+-------+---+ | lactated ringers (LR) infusion | New Bag | 11/25/19 | | 125 | | | at 125 mL/hr, Intravenous, | | 17 8:21 | | mL/hr | | | CONTINUOUS, Starting 11/25/16 | | AM PST | | | | | at 0815, Pre-op | | | | | | + +---------+ +---+-------+---+ +---+---+ | | | +---+---+ + +---------+ +---+-------+---+ | lactated ringers (LR) infusion | New Bag | 11/25/19 | | 100 | | | at 100 mL/hr, Intravenous, | | 17 12:10 | | mL/hr | | | CONTINUOUS, Starting 11/25/16 | | PM PST | | | | | at 1230, Post-op/Phase II | | | | | | + +---------+ +---+-------+---+ +---+---+ | | | +---+---+ + +-------+ +-------+---+---+ | pantoprazole (PROTONIX) | Given | 11/25/19 | 40 mg | | | | injection 40 mg 40 mg, | | 17 8:21 | | | | | Intravenous, ONCE, 11/25/16 at | | AM PST | | | | | 0815, For 1 dose, Mix each 40mg | | | | | | | vial with 10 mL NS to make 4 | | | | | | | mg/mL., Pre-op | | | | | | + +-------+ +-------+---+---+ +---+---+ | | | +---+---+ documented in this encounter
--- OUTSIDE RECORDS SUMMARY | ~2020-05-01 | XMS | Encounter Summary ---
Demographics + + + | Address | [address] | | | [place] [address] | + + + | Home Phone | | + + + | Preferred Language | Unknown | + + + | Marital Status | | + + + | Moravian Affiliation | 1076 | + + + | Race | Unknown | + + + | Ethnic Group | Unknown | + + + Author + + + | Author | [facility] | | | and [place] | + + + | Organization | [facility] | | | [...] Team Providers + +------+ + | Care Vault Maker Name | Role | Phone | [...] | 2019 | | WOJCIECH GAITAN | Interior Painter | blood work done) | | | | [address] [place], [place] | | | | | | [address] | | | | | | [phone] | | | +--------+ + + + [...] Miscellaneous Notes Telephone Encounter - Kina Hendrix Interior Painter - 07/23/2019 4:48 PM PDTCalled & spoke to patient to let her know per Dr. Medrano that the blood work she got done was not the correct ones that Dr. Medrano needed. I let her know she needed to go to [facility] lab to get her blood work [...] [place] | | | | | | [address] | | | | | | | | +--------+---------+ + + + documented as of this encounter Visit Diagnoses Not on filedocumented in this encounter
--- OUTSIDE RECORDS SUMMARY | ~2020-05-01 | XMS | Encounter Summary ---
Demographics + + + | Address | [address] | | | [place] [address] | + + + | Home Phone [...] + + + | Author | [facility] | + + + | Organization | [facility] | + + + | Address [...] Team Providers + +------+ + | Care Maintainer [employer] Name | Role | Phone | + +------+ + PCP | Unavailable | + +------+ + Encounter Details +--------+ + + + + | Date | Type | Department | Care Team | Description | +--------+ + + + + | 10/30/ | Results | Orthopaedics at | Benson Cooper MD | | | 1999 | Only | [facility] [address] | [address] | | | | | [address] | [address] [place], [place] | | | | | Mailcode: [id number] | [id number] | | | | | [facility] | | | | | | [place], [place] | | | | | | [address] | | | | | | [phone] | | | +--------+ + + + [...] + | X-RAY SPINE | Routin | 10/30/1999 | | Results for this | | LUMBOSACRAL 4 VIEWS | e | 9:10 AM | | procedure are in the | | | | PST | | results section. | + +--------+ + + + documented in this encounter Results SPINE LUMBOSACRAL 4 VIEWS (10/30/1999 9:10 AM PST) + + + + + + | Component | Value | Ref Range | Performed | Pathologist | | | | | At | Signature | + + + + + + | SPINE, | Radiologist 1: FRANCISCO, | | | | | LUMBOSACRAL | Malcom CASTILLOLUMBAR | | | | | , 4 VIEW | SPINE AP, UPRIGHT | | | | | | FLEXION AND UPRIGHT | | | | | | EXTENSION: 10/30/99 | | | | | | [id number] hours. | | | | | | Dictated 11/01/99. | | | | | | FINDINGS: There is a | | | | | | shallow right rotatory | | | | | | lumbar convexity. | | | | | | Y5stboixh S1 flexion | | | | | | and extension range of | | | | | | motion is 44-degrees. | | | | | | Thelumbar vertebral | | | | | | alignment is maintained | | | | | | in both positions. | | | | | | There ismoderate | | | | | | anterior wedge deformity | | | | | | of the T11 superior end | | | | | | plate with alarge | | | | | | central Schmorl's node. | | | | | | There is an | | | | | | anterior/superior | | | | | | smallSchmorl's node at | | | | | | L1. Mild anterior disc | | | | | | marginal spurring is | | | | | | seen atthe thoracolumbar | | | | | | junction and in the | | | | | | upper lumbar spine. | | | | | | Vertebralbody and disc | | | | | | heights are within | | | | | | normal limits. There | | | | | | arecholecystectomy clips | | | | | | in the right upper | | | | | | quadrant. IMPRESSION: 1. | | | | | | Multilevel mild | | | | | | degenerative disc | | | | | | disease at the lower | | | | | | thoracicand upper lumbar | | | | | | spine. 2. Large | | | | | | Schmorl's node with | | | | | | superior end plate | | | | | | wedging at T11.Small | | | | | | superior anterior | | | | | | Schmorl's node at L1. 3. | | | | | | Normal flexion and | | | | | | extension range of | | | | | | motion of the lumbar | | | | | | spine. END OF | | | | [...]
--- OUTSIDE RECORDS SUMMARY | ~2020-05-01 | XMS | Encounter Summary ---
Demographics + + + | Address | [address] | | | [place] [address] | + + + | Home Phone | | + + + | Preferred Language | Unknown | + + + | Marital Status | Single | + + + | Oriental Orthodox Affiliation | PRE | + + + | Race | White | + + + | Ethnic Group | Not or | + + + Author + + + | Author | [facility] | + + + | Organization | [facility] | + + + | Address [...] Team Providers + +------+ + | Care Bottom Precipitator Operator Name | Role | Phone | [...] as of this encounter Progress Notes Interface, Scrip Clerk In - 07/10/2006 1:00 AM PDTCLINIC DATE: [...] right total hip replacement. Lloyd Garcia M.D. Sports Instructor Orthopedic and Rehabilitation / [id number] / [id number] / [id number] / cc: JILLIAN TODD MD [address] [id number] signed by Interface, Scrip Clerk In at 07/10/2006 1:0 0 AM PDTdocumented in this encounter Plan of Treatment Not on filedocumented as of this encounter Visit Diagnoses Not on filedocumented in this encounter"
--- OUTSIDE RECORDS SUMMARY | ~2020-05-01 | XMS | Encounter Summary ---
Demographics + + + | Address | [address] | | | [place] [address] | + + + | Home Phone | | + + + | Preferred Language | Unknown | + + + | Marital Status | Single | + + + | Roman Catholic Affiliation | PRE | + + [...] Team Providers + +------+ + | Care Delivery Professional Name | Role | Phone | + +------+ + | Travis Mcginnis MD | PCP | | + +------+ + Encounter Details +--------+ + + + + | Date | Type | Department | Care Team | Description | +--------+ + + + + | 10/30/ | Documentati | Otolaryngology | Carolina Putnam | | | 2010 | on | Head and Neck | MEGAN Reddy [address] [facility] | | | | | Surgery Services at | [facility] | | | | | [address] | [place], [place] | | | | | [address] | [address] | | | | | Physician's | [phone] | | | | | Pavilion, [facility] floor | | | | | | [place], [place] | | | | | | [address] | | | | | | [phone] | | | +--------+ + + + [...]
--- OUTSIDE RECORDS SUMMARY | ~2020-05-01 | XMS | Encounter Summary ---
Demographics + + + | Address | [address] | | | [place] [address] | + + + | Home Phone [...] Team Providers + +------+ + | Care Product Distribution Specialist Name | Role | Phone | + +------+ + PCP | Unavailable | + +------+ + Encounter Details +--------+ + + + + | Date | Type | Department | Care Team | Description | +--------+ + + + + | 09/29/ | Orders Only | | Record, Operation | | | 2002 | | | | | +--------+ + [...] + + | OPERATION RECORD | | 09/29/2003 | | Results for this | | | | | | procedure are in the | | | | | | results section. | + +--------+ + + + documented in this encounter Results OPERATION RECORD (09/29/2003) + + | Transcriptions | + + | Interface, Pacu Nurse In - 09/19/2005 9:05 PM PST Date: | | 09/29/2003Attending Surgeon: Lloyd Gracia M.D.Solar Installer(s): | | Benson Boone M.D.Preoperative Diagnosis:Right greater trochanter open | | reduction internal fixation with aStaphylococcus wound infection.Postoperative | | Diagnosis(es):Right greater trochanter open reduction internal fixation with | | aStaphylococcus wound infection.Procedures Performed:Repeat irrigation and debridement | | including bone fragments of the right hipwith replacement of the wound VAC | | dressing.Anesthesia:General endotracheal | | anesthesia.Complications:Specimens:Indications:This is a 43-year-old woman status post | | right femoral head cheilectomy forright hip degenerative joint disease on August 16, | | 2002, which wascomplicated by greater trochanteric hardware failure. The patient | | thenunderwent an ORIF of the greater trochanter which also failed.Postoperatively, the | | patient's wound was complicated by deep woundinfection that required serial wound VAC | | changes as well as numerous I Ds.The patient is here today for repeat I D of the right | | hip.Procedure:The patient was properly identified in the preoperative hold area and | | [place] the [place]. The patient was placed initially in a supine positionwhere she | | had a general endotracheal anesthetic placed. The patient wasthen rolled into her left | | lateral decubitus on a heredia bag. The right hipwas then prepped and draped in the normal | | sterile fashion. The wound VACdressing was then removed from the wound site. The | | wound was then examinedcarefully. The patient had good granulation tissue surrounding | | the IT bandas well as the gluteus medius muscles. There was no evidence of | | grosspurulence. The greater trochanteric osteotomy site was identified andcleaned using | | curved curettes. We did remove some bony fragmentssurrounding the greater trochanter | | which were attached to the gluteusmedius.There was some fibrinous tissue that was | | excised within the layer of theadipose tissue and the IT band. Again, there was no | | gross purulence thatwas identified.Next, the wound was thoroughly irrigated using the | | pulse lavage system,using 5 liters of normal saline. We made sure that the last 1 cc | | fluid hadbacitracin instilled into it.Once the wound was cleaned to our satisfaction, | | the hemovac sponge wasthen placed, and the wound VAC system was hooked up | | appropriately. Weobtained good suction with this system, and the patient was then | | rolledback on her back and awakened from anesthesia.Disposition:1. The patient is to | | return to the OR in 2 days for repeat I D and wound VAC exchange.2. If the wound | | looks good after the next wound VAC exchange, we will consider doing a primary | | care repair of the greater trochanteric site.3. We will have Plastic Surgery | | evaluate the patient's wound at a later date as we continue doing our serial wound | | VAC changes.Dr. Garcia was present for the entire case.Benson Boone M.D.Lloyd | | Sierra Garcia.RT / [id number] / [id number] / [id number] / [id number]: 10/21/2003T: 10/22/2003 | |where she had a general endotracheal anesthetic placed. The patient was | |then rolled into her left lateral decubitus on a heredia bag. The right hip | |was then prepped and draped in the normal sterile fashion. The wound VAC | |dressing was then removed from the wound site. The wound was then examined | |carefully. The patient had good granulation tissue surrounding the IT band | |as well as the gluteus medius muscles. There was no evidence of gross | |purulence. The greater trochanteric osteotomy site was identified and | |cleaned using curved curettes. We did remove some bony fragments | |surrounding the greater trochanter which were attached to the gluteus | |medius. | | | |There was some fibrinous tissue that was excised within the layer of the | |adipose tissue and the IT band. Again, there was no gross purulence that | |was identified. | | | |Next, the wound was thoroughly irrigated using the pulse lavage system, | |using 5 liters of normal saline. We made sure that the last 1 cc fluid had | |bacitracin instilled into it. | | | |Once the wound was cleaned to our satisfaction, the hemovac sponge was | |then placed, and the wound VAC system was hooked up appropriately. We | |obtained good suction with this system, and the patient was then rolled | |back on her back and awakened from anesthesia. | | | |Disposition: | |1. The patient is to return to the OR in 2 days for repeat I D and wound | | VAC exchange. | |2. If the wound looks good after the next wound VAC exchange, we will | | consider doing a primary care repair of the greater trochanteric | | site. | |3. We will have Plastic Surgery evaluate the patient's wound at a later | | date as we continue doing our serial wound VAC changes. | | | | | |Dr. Garcia was present for the entire case. | | | | | | | | | |Benson Boone M.D. | | | | | | | |Lloyd Garcia M.D. | | | |RT / HS | |[id number] / [id number] / [id number] / [id number] | | | | | + + documented in this encounter Visit Diagnoses Not on filedocumented in this encounter"
--- OUTSIDE RECORDS SUMMARY | ~2020-05-01 | XMS | Encounter Summary ---
Demographics + + + | Address | [address] | | | [place] [address] | + + + | Home Phone | | + + + | Preferred Language | Unknown | + + + | Marital Status | | + + + | Sikh Affiliation | 1076 | + + + | Race | Unknown | + + + | Ethnic Group | Unknown | + + + Author + + + | Author | [facility] | | | and [place] | + + + | Organization | [facility] | | | [...] Providers + +------+ + | Care Data Entry Email Processor Name | Role | Phone | + +------+ + | Jaimie Monreal MD | PCP | | + +------+ + Reason for Visit + +--------+ + | Reason | Onset | Comments | | | Date | | + +--------+ + | Referral Question | 07/20/ | nutrition referral question | | | 2018 | | + +--------+ + Encounter Details +--------+ + + + + | Date | Type | Department | Care Team | Description | +--------+ + + + + | 07/20/ | Telephone | [facility] | Jasper Medrano, | Referral Question | | 2018 | | [address] | [address] | (nutrition referral | | | | [place], [place] | [place] | question) | | | | [address] | [id number] | | | | | [phone] | | | +--------+ + + + [...] Miscellaneous Notes Telephone Encounter - Kina Hendrix Policy Intern - 07/20/2019 4:20 PM PDTPatient called wanting to know if we had a referral for nutrition. I Tried calling patient to answer her question regarding the Nutrition Referral, but there was no answer, so I left a VM. Patient refused Nutritional Service & referral got closed. Patient can call [facility] at .Electronically signed by Kina Hendrix Policy Intern at 07/01 4:51 PM PDTTelephone Encounter - Deb Terrazas - 07/20/2019 2:34 PM PDTAnswe ring Service Message from 07/20/19 @ 2:25pm: I would like to know if you have a referral for a rate supervisor. Please call back. documented in this encounter Plan of Treatment +--------+---------+ + + + | Date | Type | Specialty | Care Team | Description | +--------+---------+ + + + | 05/23/ | Office | Pain Medicine | Xiang Sepulveda, | | | 2019 | Visit | | DO [address] | | | | | | [place] | | | | | | [id number] | | | | | | | | +--------+---------+ + + + documented as of this encounter Visit Diagnoses Not on filedocumented in this encounter"
--- OUTSIDE RECORDS SUMMARY | ~2020-05-01 | XMS | Encounter Summary ---
Demographics + + + | Address | [address] | | | [place] [address] | + + + | Home Phone [...] Providers + +------+ + | Care Wheel And Caster Repairer Name | Role | Phone | + +------+ + | Marta Jenkins CHARHOUSE WORKER | PCP | | + +------+ + [...] [address] | | | | | | [place], [place] | | | | | | [address] | | | | | | [phone] | | | +--------+ + + + [...]
--- OUTSIDE RECORDS SUMMARY | ~2020-05-01 | XMS | Encounter Summary ---
Demographics + + + | Address | [address] | | | [place] [address] | + + + | Home Phone | | + + + | Preferred Language | Unknown | + + + | Marital Status | Single | + + + | Jewish Affiliation | PRE | + + + [...] Team Providers + +------+ + | Care Photographic Restorer Name | Role | Phone | + +------+ + | Marta Jenkins TILE HELPER | PCP | | + +------+ + Encounter Details +--------+ + + + + | Date | Type | Department | Care Team | Description | +--------+ + + + + | 12/17/ | Ancillary | Registration [id number] | Gino Baker MD | | | 2005 | Registratio | [address] | [address] | | | | n | Jamie Mailcode: [id number] [place], | | | | | [place], [place] | [place] [address] | | | | | [address] | | | | | | [phone] | | | +--------+ + + + [...]
--- OUTSIDE RECORDS SUMMARY | ~2020-05-01 | XMS | Encounter Summary ---
Demographics + + + | Address | [address] | | | [place] [address] | + + + | Home Phone | | + + + | Preferred Language | Unknown | + + + | Marital Status | Single | + + + | Advent Affiliation | PRE | + + + [...] Team Providers + +------+ + | Care Riveting Machine Operator Name | Role | Phone | + +------+ + PCP | Unavailable | + +------+ + Encounter Details +--------+ + + + + | Date | Type | Department | Care Team | Description | +--------+ + + + + | 08/19/ | Discharge | | Summary, Discharge | D/C Summary ODDS | | 2002 | Summary-Tra | | | | | [...] as of this encounter Discharge Summaries Interface, Casket Liner In - 03/06/2006 1:10 AM PDTAdmission Date: 08/16/2003 Discharge Date: 08/19/2003 ATTENDING PHYSICIAN: Lloyd Garcia M.D. PRINCIPAL FINAL DIAGNOSIS: Osteophytes and degenerative joint disease. PRINCIPAL PROCEDURE: Right hip cheilectomy. ADDITIONAL PROCEDURES: 1. Physical therapy. 2. Occupational therapy. REASON FOR ADMISSION: Ms. Galdamez is a 42-year-old woman who has had right hip pain for the past year. She has had x-rays as well as arthrogram that showed that she has osteophytes on the rim of her femoral head. She has limited adduction. Because of her young age and limited mobility, a total hip arthroplasty is not indicated at that time. Therefore a right hip cheilectomy was proposed. The patient was admitted on August 16, 2003 and had the operation without any complications. Postoperatively, she did very well. She had two drains in place and was on antibiotic therapy until the time of discharge. She initially had a LONGWALL MACHINE OPERATOR HELPER that was weaned off as well as a Arreaga. She had physical therapy who helped ambulate her while maintaining anterior and posterior precautions. She was started on indomethacin postoperatively and will continue for six weeks. CONDITION ON DISCHARGE: Stable condition. DISPOSITION: Home. MEDICATIONS: 1. Docusate 100 mg #30. 2. Oxycodone 5 mg #90. 3. Indomethacin 25 mg for the six weeks. 4. Zantac 150 mg #30. 5. Ferrous gluconate #60. DISCHARGE INSTRUCTIONS: DIET: Not dictated. ACTIVITY: Not dictated. FOLLOWUP: The patient will follow up in two weeks for her staple removal. Benson Boone M.D. Lloyd Garcia M.D. RT:x90 P DTdocumented in this encounter Plan of Treatment Not on filedocumented as of this encounter Visit Diagnoses Not on filedocumented in this encounter"
--- OUTSIDE RECORDS SUMMARY | ~2020-05-01 | XMS | Encounter Summary ---
Demographics + + + | Address | [address] | | | [place] [address] | + + + | Home Phone [...] Team Providers + +------+ + | Care Forestry Fire Aide Name | Role | Phone | + [...] | | | Osteoarthros | | [address] [facility] | | | | | is, | RICH[address] | [address] | | | | | unspecified | [facility] | [address] [place], | | | | | whether | [facility] | [place] | | | | | generalized | [address] | [address] | | | | | or | [place], | Phone: | | | | | localized, | [place] [address] | [phone] | | | | | pelvic | Phone: | Fax: | | | | | region and | [phone] | [phone] | | | | | thigh | Fax: | | | | | | | [phone] | | +--------+--------+ + + + + Encounter Details +--------+---------+ + + + | Date | Type | Department | Care Team | Description | +--------+---------+ + + + | 01/20/ | Office | Orthopaedics at | Tesfaye Saenz | Hip Pain; | | 2008 | Visit | [address] | MEGAN Evangelista | Hip Replacement | | | | [address] | | | | | | Mailcode: [id number] | | | | | | Physician's [place] | | | | | | [place], [place] | | | | | | [address] | | | | | | [phone] | | | +--------+---------+ + + + [...] agree with the note. TYRONE COLBY MD [facility] [address] [place] [address] Mailcode: [id number] [place] [address] esfaye Saenz PA-C - 01/20/2009 5:38 PM PDT SUBJECTIVE Shelby [...] CRP pending. Offered to refer her to [facility] pain clinic if she would like [...] 11:01: RAHUL COMMENTS, prev report: Slide | [facility] | | review pending. | DEPARTMENT OF | | | PATHOLOGY | + + + + + + + + | Performing | Address | City/State/Zipcode | Phone Number | | Organization | | | | + + + + + | [facility] DEPARTMENT OF | [address] | [place] [address] | | | PATHOLOGY | [address] | | | + + + + + | [facility] DEPARTMENT OF | [address] | [place] [address] | | | PATHOLOGY | [address] | | | + + + + + SEDIMENTATION RATE (01/20/2009 10:02 AM PDT) + +-------+ + + + | Component | Value | Ref Range | Performed | Pathologist | | | | | At | Signature | + +-------+ + + + | SEDIMENTATI | 16 | <21 mm/hr | [facility] | | | ON RATE | | [...] | + + + + + | [facility] | [address] [facility] [address] | [place] [address] | | | PATHOLOGY | [address] | | | + + + + + | [facility] | [facility] | [place] [address] | | | PATHOLOGY | [address] [...] Change effective 10/26/08 | | | [facility] | | | [place] [address] | | | [place] [address] | | + + + + + + + + | Performing | Address | City/State/Zipcode | Phone Number | | Organization | | | | + + + + + | [facility] | [address] | [place] [address] | | | LABORATORY | | | | + + + + + documented in this encounter Visit Diagnoses + + | Diagnosis | + + | Hip pain Pain in joint, pelvic region and thigh | + + | Hip replacement Hip joint replacement by other means | + + documented in this encounter"
--- OUTSIDE RECORDS SUMMARY | ~2020-05-01 | XMS | Encounter Summary ---
Demographics + + + | Address | [address] | | | [place] [address] | + + + | Home Phone [...] Team Providers + +------+ + | Care Embedded Systems Engineer Name | Role | Phone | [...] | Transcriptions | + + | Interface, Clerk Supervisor In - 09/19/2005 9:05 PM PST Date: | | 09/29/2003Attending Surgeon: Lloyd Garcia M.D.Gi Technician(s): | | Benson Boone M.D.Preoperative Diagnosis:Right greater [...] Boone M.D.Lloyd | | Sierra Garcia.RT / [id number] / [id number] / [id number] / [id number]: 10/21/2003T: 10/22/2003 | |where she had a [...] | | | |RT / HS | |[id number] / [id number] / [id number] / [id number] | | | | | + + documented in this encounter Visit Diagnoses Not on filedocumented in this encounter"
--- OUTSIDE RECORDS SUMMARY | ~2020-05-01 | XMS | Encounter Summary ---
Demographics + + + | Address | [address] | | | [place] [address] | + + + | Home Phone [...] Team Providers + +------+ + | Care Weather Teacher Name | Role | Phone | [...] | + +---------+ + + | [facility] DEPARTMENT OF | | | | | RADIOLOGY | | | | + +---------+ + + documented in this encounter Visit Diagnoses Not on filedocumented in this encounter"
--- OUTSIDE RECORDS SUMMARY | ~2020-05-01 | XMS | Encounter Summary ---
Demographics + + + | Address | [address] | | | [place] [address] | + + + | Home Phone [...] + + + | Author | [facility] | + + + | Organization | [facility] | + + + | [...] Team Providers + +------+ + | Care Photo Producer Name | Role | Phone | + +------+ + | Marta Jenkins CHRISTIAN COUNSELOR | PCP | | + +------+ + Reason for Referral Physical Therapy (Routine) +--------+--------+ + + + + | Status | Reason | Specialty | Diagnoses / | Referred By | Referred To | | | | | Procedures | Contact | Contact | +--------+--------+ + + + + | Closed | | Physical | Diagnoses | Petcu, | Ramirez Pt [facility] | | | | Therapy | Morbid | Aura, ACNP | [address] | | | | | obesity | [address] | [facility] | | | | | ([facility]) | [facility] | for Health | | | | | Procedures | Rd | and Healing, | | | | | PHYSICAL | [place], [place] | [address], | | | | | THERAPY | [address] | 1st Floor | | | | | REFERRAL | Phone: | [place], [place] | | | | | | [phone] | [address] | | | | | | Fax: | Phone: | | | | | | [phone] | [phone] | | | | | | | Fax: | | | | | | | [phone] | +--------+--------+ + + + + Encounter Details +--------+ + + + + | Date | Type | Department | Care Team | Description | +--------+ + + + + | 11/19/ | Vp Site | Digestive Health | Wanda López ACNP | Morbid obesity (HCC) | | 2019 | | Center at [facility] [address] | [address] | (Primary Dx) | | | | [address] [facility] | [address] [place], | | | | | for Health and | [place] [address] | | | | | [address], [address] | [phone] | | | | | [place], [place] | | | | | | [address] | | | | | | | [...] + | Diagnosis | + + | Morbid obesity (HCC) - Primary Morbid obesity | + + documented in this encounter"
--- OUTSIDE RECORDS SUMMARY | ~2020-05-01 | XMS | Encounter Summary ---
Demographics + + + | Address | [address] | | | [place] [address] | + + + | Home Phone [...] + +------+ + | Care Director Of Sleep Name | Role | Phone | + +------+ + | No Pcp Per Patient | PCP | Unavailable | + +------+ + Encounter Details +--------+ + + + + | Date | Type | Department | Care Team | Description | +--------+ + + + + | 10/13/ | Artificial Insemination Technician | Orthopaedics at | Tesfaye Saenz | Osteoarthritis of | | 2008 | | [address] | [address] | Hip (Primary Dx) | | | | [address] | | | | | | Mailcode: [id number] | | | | | | [facility] | | | | | | [place], [place] | | | | | | [address] | | | | | | [phone] | | | +--------+ + + + [...] X-RAY PELVIS 1 VIEW | Routin | 10/14/2008 | Osteoarthritis of | Results for this | | | e | 9:25 AM | Hip | procedure are in the | | | | PST | | results section. | + +--------+ + + + | X-RAY HIP 2 VIEWS | Routin | 10/14/2008 | Osteoarthritis of | Results for this | | RIGHT | e | 9:25 AM | Hip | procedure are in the | | | | PST | | results section. | + +--------+ + + + documented in this encounter Results X-RAY PELVIS 1 VIEW (10/14/2008 9:25 AM PST) + + + + + + | Component | Value | Ref Range | Performed | Pathologist | | | | | At | Signature | + + + + + + | PELVIS 1 | STUDY: PELVIS 1 VIEW, | | | | | VIEW | HIP 2 VIEWS RIGHT | | | | | | 10/14/08 | | | | | | 10:03:00CLINICAL DATA: | | | | | | Follow-up | | | | | | hardwareCOMPARISON: | | | | | | 09/06/08FINDINGS:The | | | | | | noncemented right hip | | | | | | arthroplasty remains in | | | | | | place in | | | | | | unchangedalignment. | | | | | | Multiple cerclage | | | | | | wires and a greater | | | | | | trochanteric plateremain | | | | | | in place. The greater | | | | | | trochanteric fragment | | | | | | has migratedposteriorly | | | | | | and superiorly and is no | | | | | | longer contained within | | | | | | thetrochanteric | | | | | | fixation hardware. The | | | | | | remaining bones of the | | | | | | pelvisare within normal | | | | | | limits. There is | | | | | | minimal spurring of | | | | | | thesacroiliac joints | | | | | | bilaterally.IMPRESSION:1 | | | | | | . Noncemented right | | | | | | hip arthroplasty remains | | | | | | in place in | | | | | | unchangedalignment | | | | | | without evidence of | | | | | | hardware complication.2. | | | | | | Greater trochanteric | | | | | | fixation plate fixed | | | | | | with multiple | | | | | | cerclagewires is | | | | | | unchanged, although the | | | | | | greater trochanteric | | | | | | fragment hasmigrated | | | | | | posteriorly and | | | | | | superiorly and is no | | | | | | longer contained by | | | | | | thetrochanteric fixation | | | | | | hardware.I have | | | | | | personally viewed this | | | | | | procedure/exam and | | | | | | reviewed this | | | | | | report.Author: A. | | | | | | Malcom JUAREZReviewer: | | | | | | ADELIA | | | | | | Malcom ESCOBARSTATUS FINAL | | | | | | / Dr. DELVALLE | | | | | | LARYOSTATUS PENDING | | | | | | FINAL APPROVAL / Dr. Kahn | | | | | | BO EVANSTUS | | | | | | PRELIMINARY - UNSIGNED / | | | | | | Dr. Criss FERNÁNDEZ | | | | + + + [...] | | | + +---------+ + + X-RAY HIP 2 VIEWS RIGHT (10/14/2008 9:25 AM PST) + + + + + + | Component | Value | Ref Range | Performed | Pathologist | | | | | At | Signature | + + + + + + | HIP 2 VIEWS | STUDY: PELVIS 1 VIEW, | | | | | RIGHT | HIP 2 VIEWS RIGHT | | | | | | 10/14/08 | | | | | | 10:03:00CLINICAL DATA: | | | | | | Follow-up | | | | | | hardwareCOMPARISON: | | | | | | 09/06/08FINDINGS:The | | | | | | noncemented right hip | | | | | | arthroplasty remains in | | | | | | place in | | | | | | unchangedalignment. | | | | | | Multiple cerclage | | | | | | wires and a greater | | | | | | trochanteric plateremain | | | | | | in place. The greater | | | | | | trochanteric fragment | | | | | | has migratedposteriorly | | | | | | and superiorly and is no | | | | | | longer contained within | | | | | | thetrochanteric | | | | | | fixation hardware. The | | | | | | remaining bones of the | | | | | | pelvisare within normal | | | | | | limits. There is | | | | | | minimal spurring of | | | | | | thesacroiliac joints | | | | | | bilaterally.IMPRESSION:1 | | | | | | . Noncemented right | | | | | | hip arthroplasty remains | | | | | | in place in | | | | | | unchangedalignment | | | | | | without evidence of | | | | | | hardware complication.2. | | | | | | Greater trochanteric | | | | | | fixation plate fixed | | | | | | with multiple | | | | | | cerclagewires is | | | | | | unchanged, although the | | | | | | greater trochanteric | | | | | | fragment hasmigrated | | | | | | posteriorly and | | | | | | superiorly and is no | | | | | | longer contained by | | | | | | thetrochanteric fixation | | | | | | hardware.I have | | | | | | personally viewed this | | | | | | procedure/exam and | | | | | | reviewed this | | | | | | report.Author: A. | | | | | | Malcom JUAREZReviewer: | | | | | | ADELIA | | | | | | Malcom ESCOBARSTATUS FINAL | | | | | | / Dr. DELVALLE | | | | | | DEMAYOSTATUS PENDING | | | | | | FINAL APPROVAL / Dr. Kahn | | | | | | BO POPETATUS | | | | | | PRELIMINARY - UNSIGNED / | | | | | | Dr. Criss FERNÁNDEZ | | | | + + + [...]
--- OUTSIDE RECORDS SUMMARY | ~2020-05-01 | XMS | Encounter Summary ---
Demographics + + + | Address | [address] | | | [place] [address] | + + + | Home Phone [...] Team Providers + +------+ + | Care Aitchbone Breaker Name | Role | Phone | + [...] as of this encounter Progress Notes Interface, Energy Scheduler In - 04/28/2005 7:30 PM PDTClinic Date: [...] signs of recurrent infection. Lloyd Garcia M.D. [facility] / [id number] / [id number] / [id number] / [id number] cc: Ninfa Guillen M.D. [address] [place], [place] [id number] signed by Interface, Energy Scheduler In at 04/28/2005 7:3 0 PM PDTdocumented in this encounter Plan of Treatment Not on filedocumented as of this encounter Visit Diagnoses Not on filedocumented in this encounter"
--- OUTSIDE RECORDS SUMMARY | ~2020-05-01 | XMS | Encounter Summary ---
Demographics + + + | Address | [address] | | | [place] [address] | + + + | Home Phone [...] Author + + + | Author | [facility] | + + + | Organization | [facility] | + + + | Address [...] Team Providers + +------+ + | Care Cafeteria Worker Name | Role | Phone | + +------+ + PCP | Unavailable | + +------+ + Encounter Details +--------+ + + + + | Date | Type | Department | Care Team | Description | +--------+ + + + + | 08/27/ | Results | Orthopaedics at | Gino Baker MD | | | 2004 | Only | [address] | [address] | | | | | [address] | [place], | | | | | Mailcode: PV430 | [place] [address] | | | | | [facility] | | | | | | [place] | | | | | | [address] | | | | | | [phone] | | | +--------+ + + + [...] FILMS | Imaging | Routin | | 08/27/2005 12:00 AM | | | | e | | PST | + +---------+--------+ + + | MRI OUTSIDE FILMS | Imaging | Routin | | 09/03/2005 12:05 AM | | | | e | | PST | + +---------+--------+ + + documented as of this encounter Procedures + +--------+ + + + | Procedure Name | Priori | Date/Time | Associated Diagnosis | Comments | | | ty | | | | + +--------+ + + + | X-RAY INJ HIP ARTHRO | Routin | 11/23/2005 | | Results for this | | WO ANESTHESIA | e | 11:59 AM | | procedure are in the | | | | PST | | results section. | + +--------+ + + + | X-RAY ARTHROGRAM HIP | Routin | 11/23/2005 | | Results for this | | RT | e | 11:59 AM | | procedure are in the | | | | PST | | results section. | + +--------+ + + + documented in this encounter Results INJ HIP ARTHRO WO ANESTHESIA (11/23/2005 11:59 AM PST) + + + + + + | Component | Value | Ref Range | Performed | Pathologist | | | | | At | Signature | + + + + + + | INJ HIP | Radiologist 1: TRIPP, | | | | | VERONA JENNINGS | Raegan HERRERA M.D.STUDY: | | | | | ANESTHESIA | FLUOROSCOPICALLY GUIDED | | | | | | RIGHT HIP ASPIRATION ON | | | | | | 11/23/05 COMPARISON: | | | | | | Pelvis radiograph on | | | | | | 11/07/05 HISTORY: Healed | | | | | | right proximal femoral | | | | | | osteomyelitis. | | | | | | Persistingright hip | | | | | | pain. Evaluate for | | | | | | septic joint. | | | | | | PROCEDURE:The benefits | | | | | | and risks of the | | | | | | procedure were explained | | | | | | to thepatient and all | | | | | | questions were answered. | | | | | | Written informed | | | | | | consentwas obtained. | | | | | | The patient was placed | | | | | | supine on the | | | | | | fluoroscopytable and the | | | | | | skin was prepped and | | | | | | draped in the usual | | | | | | sterilefashion. 2% | | | | | | preservative free | | | | | | lidocaine was used for | | | | | | localanesthesia. A 22 | | | | | | gauge spinal needle was | | | | | | placed into the | | | | | | joint.Initially, no | | | | | | fluid could be | | | | | | aspirated. 20 ML of | | | | | | preserve freenormal | | | | | | saline was injected into | | | | | | the joint, and | | | | | | approximately 10 MLcould | | | | | | be aspirated. | | | | | | Approximately 5 ML of | | | | | | omnipaque 300 was | | | | | | theninjected to confirm | | | | | | intra-articular | | | | | | position. The needle | | | | | | wasremoved. No | | | | | | complications were | | | | | | present. The specimens | | | | | | were sentto the | | | | | | laboratory for gram | | | | | | stain, bacterial | | | | | | culture, fungalculture | | | | | | and AFB. Dr. Queen was | | | | | | present for the | | | | | | procedure. DISCUSSION: | | | | | | There is chronic | | | | | | deformity of the right | | | | | | proximal femur from | | | | | | priorright greater | | | | | | trochanteric osteotomy, | | | | | | hardware removal | | | | | | andosteomyelitis. | | | | | | Heterotopic | | | | | | ossification proximal to | | | | | | the rightfemur is | | | | | | noted. Medial right | | | | | | hip joint space | | | | | | narrowing,subchondral | | | | | | sclerosis and osteophyte | | | | | | formation are | | | | | | identified. There was | | | | | | significant resistance | | | | | | to injection of | | | | | | contrast.Synovial | | | | | | irregularity is present, | | | | | | compatible with | | | | | | adhesivecapsulitis. | | | | | | Contrast filled a | | | | | | small cyst along the | | | | | | superolateralaspect of | | | | | | the right femoral neck, | | | | | | which did not | | | | | | communicate withthe | | | | | | trochanteric bursa. | | | | | | IMPRESSION: 1. Right | | | | | | hip aspiration following | | | | | | irrigation with | | | | | | preservativefree normal | | | | | | saline. Specimens were | | | | | | sent to the laboratory | | | | | | forevaluation. 2. | | | | | | Adhesive capsulitis. | | | | | | 3. Contrast opacified | | | | | | a small cyst in the | | | | | | superolateral aspect | | | | | | ofthe right femoral | | | | | | neck. 4. Medial | | | | | | degenerative joint | | | | | | disease of the right | | | | | | hip. 5. Chronic | | | | | | postsurgical and post | | | | | | infectious changes of | | | | | | theproximal right femur. | | | | | | Addendum # 1 by Raegan | | | | | | Vikash Queen M.D. on | | | | | | 26-Nov-2005 15:19 There | | | | | | is no change to this | | | | | | report. The addendum | | | | | | is toadministratively | | | | | | link the associated | | | | | | examinations to one | | | | | | report. | | | | + + + [...] + +---------+ + + ARTHROGRAM HIP RT (11/23/2005 11:59 AM PST) + + + + + + | Component | Value | Ref Range | Performed | Pathologist | | | | | At | Signature | + + + + + + | ARTHROGRAM | Radiologist 1: TRIPP, | | | | | HIP RT | Reagan HERRERA M.D.STUDY: | | | | | | FLUOROSCOPICALLY GUIDED | | | | | | RIGHT HIP ASPIRATION ON | | | | | | 11/23/05 COMPARISON: | | | | | | Pelvis radiograph on | | | | | | 11/07/05 HISTORY: Healed | | | | | | right proximal femoral | | | | | | osteomyelitis. | | | | | | Persistingright hip | | | | | | pain. Evaluate for | | | | | | septic joint. | | | | | | PROCEDURE:The benefits | | | | | | and risks of the | | | | | | procedure were explained | | | | | | to thepatient and all | | | | | | questions were answered. | | | | | | Written informed | | | | | | consentwas obtained. | | | | | | The patient was placed | | | | | | supine on the | | | | | | fluoroscopytable and the | | | | | | skin was prepped and | | | | | | draped in the usual | | | | | | sterilefashion. 2% | | | | | | preservative free | | | | | | lidocaine was used for | | | | | | localanesthesia. A 22 | | | | | | gauge spinal needle was | | | | | | placed into the | | | | | | joint.Initially, no | | | | | | fluid could be | | | | | | aspirated. 20 ML of | | | | | | preserve freenormal | | | | | | saline was injected into | | | | | | the joint, and | | | | | | approximately 10 MLcould | | | | | | be aspirated. | | | | | | Approximately 5 ML of | | | | | | omnipaque 300 was | | | | | | theninjected to confirm | | | | | | intra-articular | | | | | | position. The needle | | | | | | wasremoved. No | | | | | | complications were | | | | | | present. The specimens | | | | | | were sentto the | | | | | | laboratory for gram | | | | | | stain, bacterial | | | | | | culture, fungalculture | | | | | | and AFB. Dr. Queen was | | | | | | present for the | | | | | | procedure. DISCUSSION: | | | | | | There is chronic | | | | | | deformity of the right | | | | | | proximal femur from | | | | | | priorright greater | | | | | | trochanteric osteotomy, | | | | | | hardware removal | | | | | | andosteomyelitis. | | | | | | Heterotopic | | | | | | ossification proximal to | | | | | | the rightfemur is | | | | | | noted. Medial right | | | | | | hip joint space | | | | | | narrowing,subchondral | | | | | | sclerosis and osteophyte | | | | | | formation are | | | | | | identified. There was | | | | | | significant resistance | | | | | | to injection of | | | | | | contrast.Synovial | | | | | | irregularity is present, | | | | | | compatible with | | | | | | adhesivecapsulitis. | | | | | | Contrast filled a | | | | | | small cyst along the | | | | | | superolateralaspect of | | | | | | the right femoral neck, | | | | | | which did not | | | | | | communicate withthe | | | | | | trochanteric bursa. | | | | | | IMPRESSION: 1. Right | | | | | | hip aspiration following | | | | | | irrigation with | | | | | | preservativefree normal | | | | | | saline. Specimens were | | | | | | sent to the laboratory | | | | | | forevaluation. 2. | | | | | | Adhesive capsulitis. | | | | | | 3. Contrast opacified | | | | | | a small cyst in the | | | | | | superolateral aspect | | | | | | ofthe right femoral | | | | | | neck. 4. Medial | | | | | | degenerative joint | | | | | | disease of the right | | | | | | hip. 5. Chronic | | | | | | postsurgical and post | | | | | | infectious changes of | | | | | | theproximal right femur. | | | | | | Addendum # 1 by Raegan | | | | | | Vikash Queen M.D. on | | | | | | 26-Nov-2005 15:19 There | | | | | | is no change to this | | | | | | report. The addendum | | | | | | is toadministratively | | | | | | link the associated | | | | | | examinations to one | | | | | | report. | | | | + + + + + + + + | Specimen | + + | | + + + +---------+ + + | Performing | Address | City/State/Zipcode | Phone Number | | Organization | | | | + +---------+ + + | [facility] DEPARTMENT OF | | | | | RADIOLOGY | | | | + +---------+ + + documented in this encounter Visit Diagnoses Not on filedocumented in this encounter"
--- OUTSIDE RECORDS SUMMARY | ~2020-05-01 | XMS | Encounter Summary ---
Demographics + + + | Address | [address] | | | [place] [address] | + + + | Home Phone [...] Team Providers + +------+ + | Care Fuel Cell Systems Engineer Name | Role | Phone [...]
--- OUTSIDE RECORDS SUMMARY | ~2020-05-01 | XMS | Encounter Summary ---
Demographics + + + | Address | [address] | | | [place] [address] | + + + | Home Phone | | + + + | Preferred Language | Unknown | + + + | Marital Status | Single | + + + | Pentecostal Affiliation | PRE | + + + [...] Providers + +------+ + | Care Senior Project Engineer Name | Role | Phone | + +------+ + PCP | Unavailable | + +------+ + Encounter Details +--------+ + + + + | Date | Type | Department | Care Team | Description | +--------+ + + + + | 08/16/ | Results | Orthopaedics at | Benson Cooper MD | | | 2002 | Only | [address] | | | | | [address] | [address] [place], [place] | | | | | Mailcode: PV430 | [id number] | | | | | [facility] | | | | | | [place], [place] | | | | | | [address] | | | | | | [phone] | | | +--------+ + + + [...] X-RAY PELVIS 1 VIEW | Routin | 08/16/2003 | | Results for this | | | e | 4:26 PM | | procedure are in the | | | | PST | | results section. | + +--------+ + + + | X-RAY HIP 1 VIEW | Routin | 08/16/2003 | | Results for this | | RIGHT | e | 4:26 PM | | procedure are in the | | | | PST | | results section. | + +--------+ + + + documented in this encounter Results HIP 1 VIEW RIGHT (08/16/2003 4:26 PM PST) + + + + + + | Component | Value | Ref Range | Performed | Pathologist | | | | | At | Signature | + + + + + + | HIP 1 VIEW | Radiologist 1: ARMANDO | | | | | RIGHT | Malcom ALVAREZ-Radiologist | | | | | | 2: KIM ROBERTS, | | | | | | MalcomAP OF THE RIGHT HIP: | | | | | | 08/16/2003 | | | | | | Dictated 08/17/2003 | | | | | | COMPARISON: AP pelvis | | | | | | 08/16/2003, right hip | | | | | | 01/26/2003. FINDINGS: | | | | | | Osteophytes have been | | | | | | resected from the right | | | | | | femoral headwith | | | | | | inferior femoral head | | | | | | osteophytes remaining. | | | | | | A greater | | | | | | tochanterosteotomy has | | | | | | been performed with | | | | | | fixation by cancellous | | | | | | bone screws.Surgical | | | | | | graciela and drains are | | | | | | in place. IMPRESSION: 1. | | | | | | Resection of femoral | | | | | | head osteophytes. 2. | | | | | | Greater trochanteric | | | | | | osteotomy with screw | | | | | | fixation. END OF | | | | | [...] + +---------+ + + PELVIS 1 VIEW (08/16/2003 4:26 PM PST) + + + + + [...] | | | | | | MalcomAP VIEW OF THE | | | | | | PELVIS: 08/16/2003 | | | | | | Dictated 08/17/2003 | | | | | | COMPARISON: Right hip | | | | | | radiograph 01/26/2003. | | | | | | FINDINGS: Interval | | | | | | resection of femoral | | | | | | head osteophytes has | | | | | | beenperformed. An | | | | | | osteophyte is present on | | | | | | the inferior portion of | | | | | | thefemoral head. An | | | | | | osteotomy has been done | | | | | | of the greater | | | | | | tuberositywith fixation | | | | | | by cancellous bone | | | | | | screws. It is well | | | | | | aligned.Postoperative | | | | | | surgical graciela and | | | | | | surgical drains are in | | | | | | place. The left hip | | | | | | demonstrates normal | | | | | | joint space. The pelvis | | | | | | osseousstructures are | | | | | | unremarkable. | | | | | | IMPRESSION: 1. | | | | | | Postoperative changes | | | | | | to the right hip, with | | | | | | interval resection | | | | | | offemoral head | | | | | | osteophytes. 2. | | | | | | Osteotomy of the | | | | | | greater right tochanter | | | | | | with screw fixation. | | | | | | END [...]
--- OUTSIDE RECORDS SUMMARY | ~2020-05-01 | XMS | Encounter Summary ---
Demographics + + + | Address | [address] | | | [place] [address] | + + + | Home Phone [...] Team Providers + +------+ + | Care Powerhouse Mechanic Supervisor Name | Role | Phone | + +------+ + PCP | Unavailable | + +------+ + Encounter Details +--------+ + + + + | Date | Type | Department | Care Team | Description | +--------+ + + + + | 06/24/ | Results | | Other, Faculty | | | 2000 | Only | | [phone] | | +--------+ + + + + [...] | | + +---------+ + + | [facility] DEPARTMENT | | | | | RADIOLOGY | | | | + +---------+ + + documented in this encounter Visit Diagnoses Not on filedocumented in this encounter"
--- OUTSIDE RECORDS SUMMARY | ~2020-05-01 | XMS | Encounter Summary ---
Demographics + + + | Address | [address] | | | [place] [address] | + + + | Home Phone [...] Team Providers + +------+ + | Care Clerk Of Works Name | Role | Phone | + [...] as of this encounter Progress Notes Interface, Oil Rag Washer In - 06/19/2006 1:01 AM PDT [place] [facility] [place] [address], [place] [address] FAX Department of Orthopaedics[facility] [id number] September 16, 2001 Kalyan Wu M.D. Department of Orthopedics and Rehabilitation [facility] RE: SHELBY GALDAMEZ MR #: [id number] DOS: 09/16/2001 Dear Nasir: I am referring [...] contact me directly. Sincerely, Lloyd Garcia M.D. Construction Controller [facility] / [id number] / [id number] / [id number] / [id number] C: 10/02/2001 [facility] cc: Helio Mann M.D. P.OJuan Jose [address] [id number] signed by Interface, Oil Rag Washer In at 06/19/2006 1: 01 AM PDTdocumented in this encounter Plan of Treatment Not on filedocumented as of this encounter Visit Diagnoses Not on filedocumented in this encounter"
--- OUTSIDE RECORDS SUMMARY | ~2020-05-01 | XMS | Encounter Summary ---
Demographics + + + | Address | [address] | | | [place] [address] | + + + | Home Phone | | + + + | Preferred Language | Unknown | + + + | Marital Status | Single | + + + | Sabianism Affiliation | PRE | + + + [...] Team Providers + +------+ + | Care Used Car Sales Supervisor Name | Role | Phone | [...] floor | | | | | | [place], [place] | | | | | | [address] | | | | | | [phone] | | | +--------+------+ + + + [...] | + + + + + | [facility] DEPARTMENT OF | [facility] | [place] [address] | | | PATHOLOGY | [address] | | | + + + + + | [place] DEPARTMENT OF | [address] [facility] | [place] [address] | | | PATHOLOGY | [address] [...] DEPARTMENT OF | [address] | [place] [address] | | | PATHOLOGY | [address] | | | + + + + + | [facility] DEPARTMENT OF | [address] | [place] [address] | | | PATHOLOGY | [address] [...] + + + + | [facility] DEPARTMENT | [address] [facility] | [place] [address] | | | PATHOLOGY | [address] | | | + + + + + | [facility] DEPARTMENT | [address] [facility] | [place] [address] | | | PATHOLOGY | [address] [...] + + + + | [facility] DEPARTMENT OF | [address] | [place] [address] | | | PATHOLOGY | [address] | | | + + + + + | [facility] DEPARTMENT OF | [address] | [place] [address] | | | PATHOLOGY | [address] [...] Lab) [facility] | | | [place] [address] | | | [place] [address] | | + + + + + + + + | Performing | Address | City/State/Zipcode | Phone Number | | Organization | | | | + + + + + | [facility] | [address] | [place] [address] | | | LABORATORY | | | | + + + + + documented in this encounter Visit Diagnoses + + | Diagnosis | + + | Hip pain Pain in joint, pelvic region and thigh | + + | Hip replacement Hip joint replacement by other means | + + documented in this encounter"
--- OUTSIDE RECORDS SUMMARY | ~2020-05-01 | XMS | Encounter Summary ---
Demographics + + + | Address | [address] | | | [place] [address] | + + + | Home Phone [...] Team Providers + +------+ + | Care Stretch Machine Operator Name | Role | Phone [...] | | | | Mailcode: PV430 | [place], [place] | | | | | [facility] | [address] | | | | | [place], [place] | [phone] | | | | | [address] | | | | | | [phone] | | | +--------+ + + + [...]
--- OUTSIDE RECORDS SUMMARY | ~2020-05-01 | XMS | Encounter Summary ---
Demographics + + + | Address | [address] | | | [place] [address] | + + + | Home Phone [...] Team Providers + +------+ + | Care Personnel Arbitrator Name | Role | Phone | + +------+ + | Travis Mcginnis MD | PCP | | + +------+ + Encounter Details +--------+ + + + + | Date | Type | Department | Care Team | Description | +--------+ + + + + | 12/06/ | Abstract | Infectious | [facility] | | | 2010 | | [facility] at [facility] | [facility] [address] | | | | | [address] | [address] | | | | | Loop [address] | [place], [place] | | | | | [place], [address] floor | [address] | | | | | [place], [place] | [phone] | | | | | [address] | | | | | | [phone] | | | +--------+ + + + [...] + | CBC, WITH | Routin | 12/06/2010 | | Results for this | | DIFFERENTIAL | e | | | procedure are in the | | | | | | results section. | + +--------+ + + + | COMPLETE METABOLIC | Routin | 12/06/2010 | | Results for this | | SET | e | | | procedure are in the | | (NA,K,CL,CO2,BUN,CRE | | | | results section. | | AT,GLUC,CA,AST,ALT,B | | | | | | [place] TOTAL,ALK | | | | | | PHOS,ALB,PROT TOTAL) | | | | | + +--------+ + + + documented in this encounter Results CBC, WITH DIFFERENTIAL (12/06/2010) + +-------+ + + + | Component | Value | Ref Range | Performed | Pathologist | | | | | At | Signature | + +-------+ + + + | WHITE CELL | 11.0 | K/cu mm | NON [facility] | | | COUNT | | | LAB | | + +-------+ + + + | RED CELL | 4.67 | M/cu mm | NON [facility] | | | COUNT | | | LAB | | + +-------+ + + + | HEMOGLOBIN | 14.0 | 12.1999 - 15 | NON [facility] | | | | | g/dL | LAB | | + +-------+ + + + | HEMATOCRIT | 40.8 | % | NON [facility] | | | | | | LAB | | + +-------+ + + + | MCV | 88 | fL | NON [facility] | | | | | | LAB | | + +-------+ + + + | MCH | 29.9 | pg | NON [facility] | | | | | | LAB | | + +-------+ + + + | MCHC | 34.2 | g/dL | NON [facility] | | | | | | LAB | | + +-------+ + + + | PLATELET | 495 | K/cu mm | NON [facility] | | | COUNT | | | LAB | | + +-------+ + + + | NEUTROPHIL | 69.0 | % | NON [facility] | | | % | | | LAB | | + +-------+ + + + | LYMPHOCYTE | 24.9 | % | NON [facility] | | | % | | | LAB | | + +-------+ + + + | MONOCYTE % | 3.5 | % | NON [facility] | | | | | | LAB | | + +-------+ + + + | EOS % | 2.0 | % | NON [facility] | | | | | | LAB | | + +-------+ + + + | BASO % | 0.6 | % | NON [facility] | | | | | | LAB | | + +-------+ + + + | RDW | 14.2 | % | NON [facility] | | | | | | LAB | | + +-------+ + + + | MPV | | fL | NON [facility] | | | | | | LAB | | + +-------+ + + + | NEUTROPHIL | 7.6 | K/cu mm | NON [facility] | | | # | | | LAB | | + +-------+ + + + | LYMPHOCYTE | 2.7 | K/cu mm | NON [facility] | | | # | | | LAB | | + +-------+ + + + | MONOCYTE # | 0.4 | K/cu mm | NON [facility] | | | | | | LAB | | + +-------+ + + + | EOS # | 0.2 | K/cu mm | NON [facility] | | | | | | LAB | | + +-------+ + + + | BASO # | 0.1 | | NON [facility] | | | | | | LAB | | + +-------+ + + + | SEDIMENTATI | 39 | mm/hr | NON [facility] | | | ON RATE | | | LAB | | + +-------+ + + + + + | Specimen | + + | Blood - Blood | + + + +---------+ + + | Performing | Address | City/State/Zipcode | Phone Number | | Organization | | | | + +---------+ + + | NON [facility] | | | | + +---------+ + + COMPLETE METABOLIC SET (NA,K,CL,CO2,BUN,CREAT,GLUC,CA,AST,ALT,BILI TOTAL,ALK PHOS,ALB,PROT TOTAL) (12/06/2010) + +-------+ + + + | Component | Value | Ref Range | Performed | Pathologist | | | | | At | Signature | + +-------+ + + + | GLUCOSE, | 103 | 65 - 110 mg/dL | NON [facility] | | | PLASMA | | | LAB | | | (LAB) | | | | | + +-------+ + + + | BUN, PLASMA | 11 | mg/dL | NON [facility] | | | (LAB) | | | LAB | | + +-------+ + + + | CREATININE | 0.6 | mg/dL | NON [facility] | | | PLASMA | | | LAB | | | (LAB) | | | | | + +-------+ + + + | TOTAL | 7.8 | g/dL | NON [facility] | | | PROTEIN, | | | LAB | | | PLASMA | | | | | | (LAB) | | | | | + +-------+ + + + | ALBUMIN, | 3.8 | g/dL | NON [facility] | | | PLASMA | | | LAB | | | (LAB) | | | | | + +-------+ + + + | CALCIUM, | 9.0 | mg/dL | NON [facility] | | | PLASMA | | | LAB | | | (LAB) | | | | | + +-------+ + + + | BILIRUBIN | 0.6 | Transcutaneous | NON [facility] | | | TOTAL | | Bilirubinometer | LAB | | + +-------+ + + + | ALK PHOS | 78 | U/L | NON [facility] | | | | | | LAB | | + +-------+ + + + | AST(SGOT) | 22 | U/L | NON [facility] | | | | | | LAB | | + +-------+ + + + | SODIUM, | 135 | mmol/L | NON [facility] | | | PLASMA | | | LAB | | | (LAB) | | | | | + +-------+ + + + | POTASSIUM, | 4.0 | mmol/L | NON [facility] | | | PLASMA | | | LAB | | | (LAB) | | | | | + +-------+ + + + | CHLORIDE, | 105 | mmol/L | NON [facility] | | | PLASMA | | | LAB | | | (LAB) | | | | | + +-------+ + + + | TOTAL CO2, | 29 | mmol/L | NON [facility] | | | PLASMA | | | LAB | | | (LAB) | | | | | + +-------+ + + + | ALT (SGPT) | 26 | U/L | NON [facility] | | | | | | LAB | | + +-------+ + + + [...]
--- OUTSIDE RECORDS SUMMARY | ~2020-05-01 | XMS | Encounter Summary ---
Demographics + + + | Address | [address] | | | [place] [address] | + + + | Home Phone [...] + + + | Author | [facility] | + + + | Organization | [facility] | + + + | [...] Team Providers + +------+ + | Care Icu Specialist Name | Role | Phone | [...] [facility] | | | | | | [address] | | | | | | [address] | | | | | | [place], [address] | | | | | | [place], [place] | | | | | | [address] | | | | | | [phone] | | | +--------+ + + + [...]
--- OUTSIDE RECORDS SUMMARY | ~2020-05-01 | XMS | Encounter Summary ---
Demographics + + + | Address | [address] | | | [place] [address] | + + + | Home Phone [...] Providers + +------+ + | Care Senior Restaurant Manager Name | Role | Phone | [...] | | | | | [place], | | | | | | [place] [address] | | | +--------+ + + + [...]
--- OUTSIDE RECORDS SUMMARY | ~2020-05-01 | XMS | Encounter Summary ---
Demographics + + + | Address | [address] | | | [place] [address] | + + + | Home Phone [...] Providers + +------+ + | Care Supervisor Prop Making Name | Role | Phone | + +------+ + PCP | Unavailable | + +------+ + Encounter Details +--------+ + + + + | Date | Type | Department | Care Team | Description | +--------+ + + + + | 10/05/ | Orders Only | | Record, Operation [...] + + | OPERATION RECORD | | 10/08/2003 | | Results for this | | | | | | procedure are in the | | | | | | results section. | + +--------+ + + + | OPERATION RECORD | | 10/08/2003 | | Results for this | | | | | | procedure are in the | | | | | | results section. | + +--------+ + + + | OPERATION RECORD | | 10/05/2003 | | Results for this | | | | | | procedure are in the | | | | | | results section. | + +--------+ + + + documented in this encounter Results OPERATION RECORD (10/08/2003) + + | Transcriptions | + + | Interface, Air Conditioning Sheet Metal Installer In - 09/19/2005 9:05 PM PST Date: | | 10/08/2003Attending Surgeon: Marguerite Araujo M.D.Pbx Operator(s): | | Stas Menjivar M.D.Preoperative Diagnosis(es):Right hip | | wound.Postoperative Diagnosis(es):Right hip wound.Procedures Performed:Debridement of | | skin, subcutaneous tissue, and muscle; fasciocutaneousrotation flap of 40 | | cm.Anesthesia:General with endotracheal tube.Complications:Specimens:Indications:This | | 43-year-old woman is status post multiple procedures for right hiparthritis. She has | | had osteophyte resection and ORIF of her right greatertrochanter. She has also required | | subsequent incision and drainages anddebridement with removal of hardware for | | infection. At this time, she isstatus post multiple debridements and dressings changes | | using a VAC and hasa clean granulating wound ready for an attempted primary | | closure.Procedure:After Dr. Garcia and his team completed their portion of the case | | closingthe musculature over the greater trochanter I scrubbed into assist withsoft | | tissue closure. There was noted to be a 25 x 15-cm wound with healthymuscle at the base | | and granulation tissue throughout all exposed surfaces.Initially, curettes were used to | | remove all the granulation tissue from themuscle surfaces. The skin and subcutaneous | | fat were excised in a thinlayer around the circumference of the wound to facilitate a | | primary closureand healing. A small amount of undermining was also done on the | | anteriorskin to allow a tension-free closure.In order to close the wound without | | tension, the existing wound was incisedfurther to allow a fasciocutaneous rotation flap | | of the gluteus andposterior iliac region to rotate into the wound anteriorly. Prior | | toclosing this, drains were placed. Surgilav drain had been placed in thedeep | | trochanteric area, and a second Surgilav drain was placed insubcutaneous cavity. The | | wound was irrigated out extensively with severalliters of bacitracin solution. After | | ensuring that all clinically exposedtissue had been removed the rotation flap was | | rotated anteriorly into thewound and closed with interrupted 3-0 Polysorb sutures in the | | dermis and3-0 and 4-0 nylon sutures in the skin. A sterile dressing was applied.The | | patient tolerated this portion of the procedure well. There were nocomplications. | | Sponge and needle counts were correct. No specimens weresent. She was extubated in the | | operating room and taken to the recoveryroom in stable condition.Marguerite Araujo, | | [facility] / [id number] / [id number] / [id number] / T: 10/08/2003 | |a clean granulating wound ready for an attempted primary closure. | | | |Procedure: | |After Dr. Garcia and his team completed their portion of the case closing | |the musculature over the greater trochanter I scrubbed into assist with | |soft tissue closure. There was noted to be a 25 x 15-cm wound with healthy | |muscle at the base and granulation tissue throughout all exposed surfaces. | |Initially, curettes were used to remove all the granulation tissue from the | |muscle surfaces. The skin and subcutaneous fat were excised in a thin | |layer around the circumference of the wound to facilitate a primary closure | |and healing. A small amount of undermining was also done on the anterior | |skin to allow a tension-free closure. | | | |In order to close the wound without tension, the existing wound was incised | |further to allow a fasciocutaneous rotation flap of the gluteus and | |posterior iliac region to rotate into the wound anteriorly. Prior to | |closing this, drains were placed. Surgilav drain had been placed in the | |deep trochanteric area, and a second Surgilav drain was placed in | |subcutaneous cavity. The wound was irrigated out extensively with several | |liters of bacitracin solution. After ensuring that all clinically exposed | |tissue had been removed the rotation flap was rotated anteriorly into the | |wound and closed with interrupted 3-0 Polysorb sutures in the dermis and | |3-0 and 4-0 nylon sutures in the skin. A sterile dressing was applied. | |The patient tolerated this portion of the procedure well. There were no | |complications. Sponge and needle counts were correct. No specimens were | |sent. She was extubated in the operating room and taken to the recovery | |room in stable condition. | | | | | | | | | |Marguerite Araujo M.D. | | | |[facility] / [place] | |[id number] / [id number] / [id number] / | | | | | + + OPERATION RECORD (10/08/2003) + + | Transcriptions | + + | Interface, Air Conditioning Sheet Metal Installer In - 09/19/2005 9:05 PM PST Date: | | 10/08/2003Attending Surgeon: Lloyd Garcia M.D.Pbx Operator(s): | | Benson Boone M.D. Stas Menjivar, | | [place].Co-Surgeon:Marguerite Araujo M.D.Preoperative Diagnosis(es):Right lateral hip wound | | with history of methicillin-sensitiveStaphylococcus aureus and anaerobic infected | | greater trochanteric openreduction internal fixation.Postoperative Diagnosis(es):Right | | lateral hip wound with history of methicillin sensitiveStaphylococcus aureus and | | anaerobic infected greater trochanteric openreduction internal fixation.Procedures | | Performed:1. Repeat irrigation and debridement of subcutaneous tissue and bone, | | right lateral hip wound.2. Repair of right greater trochanter with pull out sutures | | over a bolster.3. Wound closure over drain by Plastic Surgery, 40-cm closure of | | fasciocutaneous flap.Anesthesia:General endotracheal with | | epidural.Complications:None apparent.Specimens:None.Indications:A 43-year-old morbidly | | obese woman with severe right hip degenerative jointdisease, underwent chilectomy | | (removal of osteophytes) from her femoralhead via transtrochanteric approach on July | | 2002. Postoperatively,she lost reduction of her greater trochanter and required | | open reductioninternal fixation with a claw plate construct on September 13 | | 2002.Unfortunately, this wound became infected, and on September 25, 2003, shewas | | readmitted for irrigation, debridement, and hardware removal and hasundergone series of | | repeat irrigation, debridements, and wound V.A.C.changes with an attempt at partial | | delayed primary closure and repair ofthe greater trochanter to the femur with suture | | technique. She hassubsequently gone onto loose purchase on some of that repair and | | haddelayed primary closure. A portion taken down in anticipation of flapclosure of the | | wound today by Plastic Surgery. She was therefore indicatedfor the above-listed | | procedures.Findings:A small amount of devitalized subcutaneous fat and trochanteric | | bone.There was no purulence, no malodor, and no concerning drainage in thewound. The | | space was able to be effectively obliterated by pullingdown the residual of the | | greater trochanter over a large 1/4-inch drain andsecuring it with 4 strands of #2 nylon | | tied over a Kerlix bolster roll.Intraoperative inspection and consultation by | | Van confirmed theadvisability of primary wound closure by means of soft tissue | | advancementflap which was performed by them under the same anesthetic and will | | bedictated separately by the Plastic Surgery Service.Estimated Blood Loss:100 cc.Blood | | Replacement:Intravenous crystalloid fluid 1 liter.Urine Output:One liter per | | Arreaga.Cultures:None.Drains:Two 1/4-inch tubes; Y connected to 1 large Hemovac suction | | cannister, onetube in the deep wound adjacent to the trochanteric repair and one in | | thesubcutaneous flap.Postoperative Plan:To leave the drains in until there is | | essentially no drainage. Theabduction pillow and a systemic compression devices on her | | legs shouldremain in place at all times. We will maintain hip flexion at 45 degrees.She | | will be maintained on nafcillin and Flagyl for 6 to 8 weeks. At therecommendations of | | the Infectious Disease Service, she will have strict bedrest for 5 days minimum, and | | then after wound check, she will have theability to be touchdown weightbearing on the | | right lower extremity in herbrace at all times. So, we maintained on Lovenox 40 mg | | subcutaneous q.dwhen she is nonambulatory. We will check CBC, erythrocyte | | sedimentationrate, C-reactive protein, and complete metabolic screen with a | | targethematocrit of 30, maintain her on the humidified nasal cannula oxygen at 3liters | | per minute for at least 48 hours, and we will obtain a Painconsultation to manage her | | epidural and leave the Arreaga in place while sheis at bedrest.Attending Surgeon | | Attestation:I certify that I was present in the Operating Room for the entire | | procedureand participated in all phases of the irrigation, debridement, and repairof the | | greater trochanter.Procedure:The patient was identified in the Holding Area on 5B, and | | with theAnesthesia Service, we discussed the need for placement of an epidural andthe | | possibility of partial or complete delayed primary closure which hadbeen discussed with | | her at many points in the past as well. She consentedto these procedures, and she was | | brought to the Operating Room after theepidural catheter was placed, and the general | | endotracheal anesthesia wasadministered with a fiberoptic intubation. She was then | | placed in theright side up lateral decubitus position with the abduction pillow | | securedbetween her legs. The perineum, lower leg, and thorax were isolated offwith | | plastic adhesive barrier U drapes, and the wound and skin were preppedwith Hibiclens and | | then the skin cleaned with alcohol. We meticulouslydebrided the subcutaneous tissues | | including 1-cm diameter nodule ofnecrotic fat along the apex of her wound and scraped | | off the undersurfaceof her greater trochanter which had a small area of poorly perfused | | bone.We copiously irrigated the wound and then meticulously debrided some morebone, | | subcutaneous tissues, and muscle as necessary to come up with acompletely pristine wound | | bed. It appeared possible for a primary skinclosure to minimize the deep crevice | | space. In consultation with PlasticSurgery staff, we decided to pull down her | | trochanter with percutaneouslyplaced large diameter monofilament suture tied over a | | bolster. Drains wereplaced exiting through the anterolateral thigh; one in the deep | | space andone to be in the subcutaneous space, and two sutures were placed into | | thegreater trochanter; one to pull down the posterior half and the other theanterior | | half. These were in mattress fashion over the bone flap toprevent pull out. They | | attained excellent purchase and closed the deadspace nearly completely. Plastic Surgery | | then assumed care of the wound.Again, meticulously irrigate and Debrided, curetted off | | all the granulationtissue, excised the skin edges, and advanced the flap re-extending | | theposterior portion our incision, and they will dictate the details of thatseparately. | | After the wound was closed, the wound was dressed sterilely,and she was transferred | | [facility] the [facility] the [facility] with the hipsflexed and abduction pillow in place and | | brought from the Operating Room tothe Recovery Room in stable and satisfactory condition | | having tolerated theprocedure well without apparent complication. All counts were | | reportedcorrect prior to leaving the Operating Room. There were no apparenthypotensive | | episodes or other anesthetic difficulties.Lloyd Garcia M.D.Paper Pattern Inspector, | | Orthopedics and Rehabilitation / [id number] / [id number] / [id number] / T: | | 10/08/2003 | |tube in the deep wound adjacent to the trochanteric repair and one in the | |subcutaneous flap. | | | |Postoperative Plan: | |To leave the drains in until there is essentially no drainage. The | |abduction pillow and a systemic compression devices on her legs should | |remain in place at all times. We will maintain hip flexion at 45 degrees. | |She will be maintained on nafcillin and Flagyl for 6 to 8 weeks. At the | |recommendations of the Infectious Disease Service, she will have strict bed | |rest for 5 days minimum, and then after wound check, she will have the | |ability to be touchdown weightbearing on the right lower extremity in her | |brace at all times. So, we maintained on Lovenox 40 mg subcutaneous q.d | |when she is nonambulatory. We will check CBC, erythrocyte sedimentation | |rate, C-reactive protein, and complete metabolic screen with a target | |hematocrit of 30, maintain her on the humidified nasal cannula oxygen at 3 | |liters per minute for at least 48 hours, and we will obtain a Pain | |consultation to manage her epidural and leave the Arreaga in place while she | |is at bedrest. | | | |Attending Surgeon Attestation: | |I certify that I was present in the Operating Room for the entire procedure | |and participated in all phases of the irrigation, debridement, and repair | |of the greater trochanter. | | | |Procedure: | |The patient was identified in the Holding Area on 5B, and with the | |Anesthesia Service, we discussed the need for placement of an epidural and | |the possibility of partial or complete delayed primary closure which had | |been discussed with her at many points in the past as well. She consented | |to these procedures, and she was brought to the Operating Room after the | |epidural catheter was placed, and the general endotracheal anesthesia was | |administered with a fiberoptic intubation. She was then placed in the | |right side up lateral decubitus position with the abduction pillow secured | |between her legs. The perineum, lower leg, and thorax were isolated off | |with plastic adhesive barrier U drapes, and the wound and skin were prepped | |with Hibiclens and then the skin cleaned with alcohol. We meticulously | |debrided the subcutaneous tissues including 1-cm diameter nodule of | |necrotic fat along the apex of her wound and scraped off the undersurface | |of her greater trochanter which had a small area of poorly perfused bone. | |We copiously irrigated the wound and then meticulously debrided some more | |bone, subcutaneous tissues, and muscle as necessary to come up with a | |completely pristine wound bed. It appeared possible for a primary skin | |closure to minimize the deep crevice space. In consultation with Plastic | |Surgery staff, we decided to pull down her trochanter with percutaneously | |placed large diameter monofilament suture tied over a bolster. Drains were | |placed exiting through the anterolateral thigh; one in the deep space and | |one to be in the subcutaneous space, and two sutures were placed into the | |greater trochanter; one to pull down the posterior half and the other the | |anterior half. These were in mattress fashion over the bone flap to | |prevent pull out. They attained excellent purchase and closed the | |space nearly completely. Plastic Surgery then assumed care of the wound. | |Again, meticulously irrigate and Debrided, curetted off all the granulation | |tissue, excised the skin edges, and advanced the flap re-extending the | |posterior portion our incision, and they will dictate the details of that | |separately. After the wound was closed, the wound was dressed sterilely, | |and she was transferred from the OR table to the rney with the hips | |flexed and abduction pillow in place and brought from the Operating Room to | |the Recovery Room in stable and satisfactory condition having tolerated the | |procedure well without apparent complication. All counts were reported | |correct prior to leaving the Operating Room. There were no apparent | |hypotensive episodes or other anesthetic difficulties. | | | | | | | | | |Lloyd Garcia M.D. | |Paper Pattern Inspector, Orthopedics and Rehabilitation | | | | / | |[id number] / [id number] / [id number] / | | | | | + + OPERATION RECORD (10/05/2003) + + | Transcriptions | + + | Interface, Air Conditioning Sheet Metal Installer In - 09/19/2005 9:05 PM PST Date: | | 10/05/2003Attending Surgeon: Lloyd Garcia M.D.Pbx Operator(s): | | Benson Boone M.D.Preoperative Diagnosis(es):Right hip infection status | | post wound VAC changes.Postoperative Diagnosis(es):Right hip infection status post wound | | VAC changes.Procedures Performed:1. Irrigation, debridement of right hip wound.2. | | Wound VAC change.Anesthesia:General endotracheal anesthetic.IV Fluids:800 cc of | | LR.Estimated Blood Loss:100 cc.Complications:None.Specimens:None.History:Ms. Galdamez is a | | 43-year-old female status post right hip cheilectomy onAugust 14, 2003, and status | | post ORIF of the greater trochanter onSeptember 13, 2003. The patient has been | | undergoing serial wound VACchanges for infected right hip which was I D'd on August | | 2002. Hersubsequent wound VAC changes included September 27, 2003, September 29, | | 2002,October 01, 2003, and October 04, 2003. The patient was brought back to theOperating | | Room today for repeat wound VAC change with a future rotationalflap for her right hip | | wound.Indications:Procedure:The patient was properly identified and taken to OR room | | #14. The patientwas placed in supine position where general endotracheal anesthetic | | wasperformed. Once this was completed, the patient was placed in the leftlateral | | decubitus position on a beanbag. The beanbag was inflated suchthat the patient was able | | to be on her left side. We took special care toprotect her peroneal nerve as well as | | her bony prominences including hermedial malleolus and her axilla. The right hip was | | prepped and draped inthe normal sterile fashion which included removing the old wound | | VAC andthen using a Betadine scrub. Once this was completed, we irrigated thewound with | | copious amounts of normal saline. We then identified the softtissues which showed them | | to be viable and free of any infection. Welooked at the abductor musculature which we | | had prepared previously, and itshowed that the fiberwire had pulled through the | | bone-tendon interface atthe proximal aspect of the greater trochanter. Because of this, | | we wentahead and excised our primary repair. We then looked at the undersurfaceof the | | abductors which were clear of any infection.A large wound Hemovac sponge was then placed | | in the wound, and the edgeswere sutured to the foam. The overlying drain and plastic | | drape were thenplaced appropriately, and then the apparatus was hooked up to suction. | | Thepatient had a very good closure of the wound, and we then removed thedrapes and | | awakened the patient from anesthesia. We then hooked up thewound VAC to its normal | | machine, and there was no evidence of any grossleaks. The patient was then awakened | | from anesthesia and taken to the PACUarea in stable condition.Disposition:1. The | | patient is to continue her ciprofloxacin as well as the nafcillin and Flagyl.2. | | The patient is to be evaluated by the Plastic Surgery Team for a rotational flap of | | the right hip wound. This operation is supposed to be happening on Saturday. The | | patient will continue to wear her wound VAC until she is evaluated and brought back | | to the Operating Room by Plastic Surgery.3. The patient is to wear her | | abduction pillow at all times.4. We will have a followup hematocrit tomorrow and | | continue her on iron sulfate for now.Dr. Lloyd Garcia was present for this entire | | case.Benson Boone M.D.Lloyd Garcia M.D.RT / [id number] / [id number] / [id number] / [id number]: | | 10/05/2003T: 10/05/2003 | |flap for her right hip wound. | | | |Indications: | | | |Procedure: | |The patient was properly identified and taken to OR room #14. The patient | |was placed in supine position where general endotracheal anesthetic was | |performed. Once this was completed, the patient was placed in the left | |lateral decubitus position on a beanbag. The beanbag was inflated such | |that the patient was able to be on her left side. We took special care to | |protect her peroneal nerve as well as her bony prominences including her | |medial malleolus and her axilla. The right hip was prepped and draped in | |the normal sterile fashion which included removing the old wound VAC and | |then using a Betadine scrub. Once this was completed, we irrigated the | |wound with copious amounts of normal saline. We then identified the soft | |tissues which showed them to be viable and free of any infection. We | |looked at the abductor musculature which we had prepared previously, and it | |showed that the fiberwire had pulled through the bone-tendon interface at | |the proximal aspect of the greater trochanter. Because of this, we went | |ahead and excised our primary repair. We then looked at the undersurface | |of the abductors which were clear of any infection. | | | |A large wound Hemovac sponge was then placed in the wound, and the edges | |were sutured to the foam. The overlying drain and plastic drape were then | |placed appropriately, and then the apparatus was hooked up to suction. The | |patient had a very good closure of the wound, and we then removed the | |drapes and awakened the patient from anesthesia. We then hooked up the | |wound VAC to its normal machine, and there was no evidence of any gross | |leaks. The patient was then awakened from anesthesia and taken to the PACU | |area in stable condition. | | | |Disposition: | |1. The patient is to continue her ciprofloxacin as well as the nafcillin | | and Flagyl. | |2. The patient is to be evaluated by the Plastic Surgery Team for a | | rotational flap of the right hip wound. This operation is supposed | | to be happening on Saturday. The patient will continue to wear her | | wound VAC until she is evaluated and brought back to the Operating | | Room by Plastic Surgery. | |3. The patient is to wear her abduction pillow at all times. | |4. We will have a followup hematocrit tomorrow and continue her on iron | | sulfate for now. | | | |Dr. Lloyd Garcia was present for this entire case. | | | | | | | | | |Benson Boone M.D. | | | | | | | |Lloyd Garcia M.D. | | | |RT / HS | |[id number] / [id number] / [id number] / [id number] | | | | | + + documented in this encounter Visit Diagnoses Not on filedocumented in this encounter"
--- OUTSIDE RECORDS SUMMARY | ~2020-05-01 | XMS | Encounter Summary ---
Demographics + + + | Address | [address] | | | [place] [address] | + + + | Home Phone [...] Providers + +------+ + | Care Senior Pl Sql Developer Name | Role | Phone | + [...] as of this encounter Progress Notes Interface, Manager Eligibility In - 04/28/2005 8:48 PM PDTClinic Date: [...] well but presented to the ER in [place] approximately a week and half ago with [...] up with her primary care doctor in [place] and return to clinic and see me on an as-needed basis only. Lloyd Garcia M.D. Press Leader, Orthopedics and Rehabilitation / [id number] / [id number] / [id number] / [id number] cc: [facility]. Pearce [facility] [address] [place] [address] Rinaldi M.D. [address] [place] [address], [place] [address]Xzcyvoadpnzlei signed by Interface, Manager Eligibility In at 04/28/2005 8:4 8 PM PDTdocumented in this encounter Plan of Treatment Not on filedocumented as of this encounter Visit Diagnoses Not on filedocumented in this encounter"
--- OUTSIDE RECORDS SUMMARY | ~2020-05-01 | XMS | Encounter Summary ---
Demographics + + + | Address | [address] | | | [place] [address] | + + + | Home Phone | | + + + | Preferred Language | Unknown | + + + | Marital Status | | + + + | Sabianism Affiliation | 1076 | + + + | Race | Unknown | + + + | Ethnic Group | Unknown | + + + Author + + + | Author | [facility] | | | and [place] | + + + | Organization | [facility] | | [...] Providers + +------+ + | Care Home Health Travel Pt Name | Role | Phone | + [...] + + | 07/31/ | Telephone | [facility] | Xiang Sepulveda, | Other (Appointment | | 2019 | | NEUROS[facility]ENTER | DO [address] | note ) | | | | [address] | [place], [place] | | | | | [address] | [address] | | | | | [place], [place] | | | | | | [address] | | | | | | [phone] | | | +--------+ + + + [...] Miscellaneous Notes Telephone Encounter - Melyssa Ott, Telecommunications Officer - 07/31/2019 11:07 AM Yuly RHODES called patient and left a voicemail to return my call. elephone Encounter - Mihaela Fulton - 07/31/2019 10:27 AM PDTShelby, is calling regarding Other (Appointment not e ) and would like a call back. Additional Call Details: Requesting note to be faxed to [phone] indicating that arabella ross did attend appointment 07/29/19 so she can get her mileage reimbursed. If this is a symptom based call, was patient offered triage? Not Applicable If this is a symptom based call and you were unable to immediately transfer the call to a yuly liz motor vehicle inspector was caller made aware that if at [...] [place] | | | | | | [id number] | | | | | | | | +--------+---------+ + + + documented as of this encounter Visit Diagnoses Not on filedocumented in this encounter"
--- OUTSIDE RECORDS SUMMARY | ~2020-05-01 | XMS | Encounter Summary ---
Demographics + + + | Address | [address] | | | [place] [address] | + + + | Home Phone [...] Team Providers + +------+ + | Care Jogger Operator Name | Role | Phone | + +------+ + | Marta Jenkins MEDICAL CODING AUDITOR | PCP | | + +------+ + [...] | obesity | [address] | [facility] | | | | | ([facility]) | [facility] | for Health | | | | | Procedures | Rd | and Healing, | | | | | PHYSICAL | [place], [place] | [address], | | | | | THERAPY | [address] | 1st Floor | | | | | REFERRAL | Phone: | [place], [place] | | | | | | [phone] | [address] | | | | | | Fax: | Phone: | | | | | | [phone] | [phone] | | | | | | | Fax: | | | | | | | [phone] | +--------+--------+ + + + + Encounter Details +--------+ + + + + | Date | Type | Department | Care Team | Description | +--------+ + + + + | 11/19/ | Customer Consulting Manager | Digestive Health | Wanda López ACNP | Morbid obesity (HCC) | | 2019 | | Center at [facility] [address] | [address] | (Primary Dx) | | | | [facility] | [address] Ayala [place], | | | | | for Health and | [place] [address] | | | | | [address], [address] | [phone] | | | | | [place], [place] | | | | | | [address] | | | | | | | [...]
--- OUTSIDE RECORDS SUMMARY | ~2020-05-01 | XMS | Encounter Summary ---
Demographics + + + | Address | [address] | | | [place] [address] | + + + | Home Phone | | + + + | Preferred Language | Unknown | + + + | Marital Status | | + + + | Orthodoxy Affiliation | 1076 | + + + | Race | Unknown | + + + | Ethnic Group | Unknown | + + + Author + + + | Author | [facility] | | | and [place] | + + + | Organization | [facility] | | | and [...] Team Providers + +------+ + | Care Mainspring Former Arbor End Name | Role | Phone | + [...] + + | 03/24/ | Office | [facility] | Xiang Sepulveda, | Back pain, | | 2019 | Visit | [facility] | DO [address] | unspecified back | | | | [address] | [place], [place] | location, | | | | [address] | [phone] | unspecified back | | | | [place], [place] | | pain laterality, | | | | [address] | | unspecified | | | | [phone] | | chronicity (Primary | | | [...] but not limited to phys ical therapy, daycare manager, acupuncture, massage therapy, and nutritional health counse [...] Author Status Filed Medication Agreement Antonella Sprague, Captain Of Guards Active 11/25/2019 10:52 AM Pain Contract- Dr. Sepulveda 11/25/2019 PEG Pain screening tool (Pain, enjoyment, general activity) Total score: (Printable questionnaires in Sami ) Interpretation of Total Score: PEG scores are used to track changes over time. It should de crease after therapy has begun. Last 4 PEG Scores: No flowsheet data found. 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 This wi ll be up to them and her primary care physician I explained. She does have an appointment w [facility] orthopedic surgery next week in [place]. Active range of motion bilateral upper extremities [...] reviewed, listed controlled substances are consistent with [facility] prescriptions and patient reported [...] imited to physical therapy, massage therapy, acupuncture, daycare manager, along with jabari mmended psychological counseling, either privately, or in group sessions offered by private care individuals, community services, or methodist organizations. Appropriate referrals were made at patient [...] and complications with the passage of time. MCC use is also associated with depressions, and [...] and coordination of care with other health care consultant and monitoring labs results, other test results and imagin g including [facility] and/or [facility] prescription monitoring systems. This document has been created using [employer] Recognition software and [employer]Me. The entry has been reviewed for content and accuracy, but there may still exist "sound alike" signs and displays salesperson word errors and/or unintended additions and deletions. [...] [place] | | | | | | [id number] | | | | | | | [...]
--- OUTSIDE RECORDS SUMMARY | ~2020-05-01 | XMS | Encounter Summary ---
Demographics + + + | Address | [address] | | | [place] [address] | + + + | Home Phone [...] Team Providers + +------+ + | Care Cribbing Setter Name | Role | Phone | + +------+ + PCP | Unavailable | + +------+ + Encounter Details +--------+ + + + + | Date | Type | Department | Care Team | Description | +--------+ + + + + | 08/12/ | Results | Orthopaedics at | Lloyd Garcia MD | | | 2002 | Only | [facility] [address] | | | | [address] | | | | | | Mailcode: [id number] | | | | | | [facility] | | | | | | [place], [place] | | | | | | [address] | | | | | | [phone] | | | +--------+ + + + [...] + + | HEMATOCRIT | Routin | 08/17/2003 | | Results for this | | | e | 8:38 AM | | procedure are in the | | | | PST | | results section. | + +--------+ + + + | CBC ONLY | Routin | 08/12/2003 | | Results for this | | | e | 10:15 AM | | procedure are in the | | | | PST | | results section. | + +--------+ + + + documented in this encounter Results HEMATOCRIT (08/17/2003 8:38 AM PST) + + + + + + | Component | Value | Ref Range | Performed | Pathologist | | | | | At | Signature | + + + + + + | HEMATOCRIT | 31.8 (L) | 33.0 - 44.6 % | [...] | [facility] DEPARTMENT | [address] [facility] | [place] [address] | | | PATHOLOGY | [address] | | | + + + + + | [facility] | [address] [place] [address] | [place] [address] | | | PATHOLOGY | [address] | | | + + + + + CBC ONLY WITH PLATELET (08/12/2003 10:15 AM PST) + + + + + + | Component | Value | Ref Range | Performed | Pathologist | | | | | At | Signature | + + + + + + | WHITE CELL | 13.5 (H) | 4.4 - 11.0 K/cu | [facility] | | | COUNT | | mm | DEPARTMENT | | | | | | OF | | | | | | PATHOLOGY | | + + + + + + | RED CELL | 4.87 | 3.65 - 5.10 | [facility] | | | COUNT | | M/cu mm | DEPARTMENT | | | | | | OF | | | | | | PATHOLOGY | | + + + + + + | HEMOGLOBIN | 14.0 | 11.4 - 15.0 | [facility] | | | | | g/dL | DEPARTMENT | | | | | | OF | | | | | | PATHOLOGY | | + + + + + + | HEMATOCRIT | 41.4 | 33.0 - 44.6 % | [facility] | | | | | | DEPARTMENT | | | | | | OF | | | | | | PATHOLOGY | | + + + + + + | MCV | 84.9 | 80.0 - 96.0 fL | [facility] [...] + + + + | MCHC | 33.7 | 33.4 - 35.5 | [facility] | | | | | g/dL | DEPARTMENT | | | | | | OF | | | | | | PATHOLOGY | | + + + + + + | RDW | 13.5 | 11.5 - 15.0 % | [facility] | | | | | | DEPARTMENT | | | | | | OF | | | | | | PATHOLOGY | | + + + + + + | PLATELET | 375 | 150 - 400 K/cu | [facility] | | | COUNT | | mm | DEPARTMENT | | | | | | OF | | | | | | PATHOLOGY | | + + + + + + | MPV | 7.2 (L) | 7.4 - 10.4 fL | [...] DEPARTMENT OF | [address] | [place] [address] | | | PATHOLOGY | [address] | | | + + + + + | [facility] | [address] | [place] [address] | | | PATHOLOGY | [address] | | | + + + + + documented in this encounter Visit Diagnoses Not on filedocumented in this encounter"
--- OUTSIDE RECORDS SUMMARY | ~2020-05-01 | XMS | Encounter Summary ---
Demographics + + + | Address | [address] | | | [place] [address] | + + + | Home Phone | | + + + | Preferred Language | Unknown | + + + | Marital Status | | + + + | Pentecostalism Affiliation | 1076 | + + + | Race | Unknown | + + + | Ethnic Group | Unknown | + + + Author + + + | Author | [facility] | | | and [place] | + + + | Organization | [facility] | | | [...] Team Providers + +------+ + | Care Cushion Sewer Name | Role | Phone | + +------+ + | Karli Hammonds | PCP | | | MD | | | + +------+ + Reason for Visit + +--------+ + | Reason | Onset | Comments | | | Date | | + +--------+ + | Appointment | 10/02/ | procedure scheduled Oct.24 insurance denies coverage for | | | 2012 | endoscopy | + +--------+ + Encounter Details +--------+ + + + + | Date | Type | Department | Care Team | Description | +--------+ + + + + | 10/02/ | Telephone | [facility] | Augie Valdivia MD | Appointment | | 2012 | | GASTROENTEROLOGY | [address] [facility] | (procedure scheduled | | | | [address] [facility] | [address] [place], [place] | Oct.24 insurance | | | | [address] [place], [place] | [address] | denies coverage for | | | | [address] | | endoscopy) | | | | [phone] | | | +--------+ + + + [...] this encounter Miscellaneous Notes Telephone Encounter - Pearl Dia RN - 10/03/2012 12:31 PM PSTSpoke with patient and informed her we have auth for colon but not the egd. She states she has an appt with Dr Banuelos to do egd and colon 10/09/12 pending ins auth. as she did not feel she could wait un til 10/24/12. Told her I will take her off our schedule but she asks that I keep her on unti l she knows for sure that Dr Banuelos can do egd,colonoscopy as planned on 10/09/12. She agree s to call our office by 10/09/12. She states she is having "so much trouble with her stomach" that she will Ask for appeal of the insurance decision. She states Dr Banuelos has more o f her past medical history and hospital records that perhaps he would have better chance of getting approval. TTelephone Encounter - Isabella Roblero RN - 10/02/2012 11:40 AM PSTCalled and left message maricel Ryan her insurance denied her endoscopy, "not medically necessary" does she want to keep it schedule or just have the colonoscopy. Electronically signed by Isabella Roblero RN at 11/2012 11:41 AM PSTdocumented in this encounter Plan of [...] [place] | | | | | | [id number] | | | | | | | | +--------+---------+ + + + documented as of this encounter Visit Diagnoses Not on filedocumented in this encounter
--- OUTSIDE RECORDS SUMMARY | ~2020-05-01 | XMS | Encounter Summary ---
Demographics + + + | Address | [address] | | | [place] [address] | + + + | Home Phone [...] Providers + +------+ + | Care Embedded Software Architect Name | Role | Phone | [...] | Procedures | [address] | [address] [place], | | | | | CONSULT TO | [place], [place] | [place] | | | | | ORTHOPEDICS | [address] | [address] | | | | | AND | Phone: | Phone: | | | | | REHABILITATI | [phone] | [phone] | | | | | ON | Fax: | Fax: | | | | | | [phone] | [phone] | +--------+--------+ + + + + Encounter Details +--------+---------+ + + + | Date | Type | Department | Care Team | Description | +--------+---------+ + + + | 04/10/ | Office | Orthopaedic Spine | Krishna, Vince, MD | Back pain (Primary | | 2010 | Visit | Center at [facility] [address] | [address] | Dx) | | | | [address] | [address] [place], | | | | | Mailcode: [id number] | [place] [address] | | | | | [facility] | [phone] | | | | | and Healing, | | | | | | Building | | | | | | Floor [place], [place] | | | | | | [address] | | | | | | [phone] | | | +--------+---------+ + + + [...]
--- OUTSIDE RECORDS SUMMARY | ~2020-05-01 | XMS | Encounter Summary ---
Demographics + + + | Address | [address] | | | [place] [address] | + + + | Home Phone [...] Team Providers + +------+ + | Care Information Technology Analyst Name | Role | Phone | [...] | | | | Mailcode: [id number] | [place], [place] | | | | | [facility] | [address] | | | | | [place], [place] | [phone] | | | | | [address] | | | | | | [phone] | | | +--------+ + + + [...]
--- OUTSIDE RECORDS SUMMARY | ~2020-05-01 | XMS | Encounter Summary ---
Demographics + + + | Address | [address] | | | [place] [address] | + + + | Home Phone [...] Team Providers + +------+ + | Care Dovetail Machine Operator Name | Role | Phone [...] | Procedures | [address] | [address] [place], | | | | | CONSULT TO | [place], [place] | [place] | | | | | ORTHOPEDICS | [address] | [address] | | | | | AND | Phone: | Phone: | | | | | REHABILITATI | [phone] | [phone] | | | | | ON | Fax: | Fax: | | | | | | [phone] | [phone] | +--------+--------+ + + + + Encounter Details +--------+---------+ + + + | Date | Type | Department | Care Team | Description | +--------+---------+ + + + | 04/10/ | Office | Orthopaedic Spine | Krishna, Vince, MD | Back pain (Primary | | 2010 | Visit | Center at [facility] [address] | [address] | Dx) | | | | [address] | [address] [place], | | | | | Mailcode: CH8N | [place] [address] | | | | | [facility] | [phone] | | | | | and Healing, | | | | | | Building | | | | | | Floor [place], [place] | | | | | | [address] | | | | | | [phone] | | | +--------+---------+ + + + [...]
--- OUTSIDE RECORDS SUMMARY | ~2020-05-01 | XMS | Encounter Summary ---
Demographics + + + | Address | [address] | | | [place] [address] | + + + | Home Phone [...] Team Providers + +------+ + | Care Roundhouse Worker Name | Role | Phone | [...] [address] | | | | | [address] | [place], [place] | | | | | [place], [facility] floor | [address] | | | | | [place], [place] | [phone] | | | | | [address] | | | | | | [phone] | | | +--------+ + + + [...]
--- OUTSIDE RECORDS SUMMARY | ~2020-05-01 | XMS | Encounter Summary ---
Demographics + + + | Address | [address] | | | [place] [address] | + + + | Home Phone [...] Providers + +------+ + | Care Manager Presentation Name | Role | Phone | + +------+ + | Travis Mcginnis MD | PCP | | + +------+ + Encounter Details +--------+ + + + + | Date | Type | Department | Care Team | Description | +--------+ + + + + | 11/16/ | Abstract | Infectious | [facility] | | | 2010 | | Diseases at [facility] | [address]GAN [address] | | | | | [address] | [address] | | | | | Loop Physician's | [place], [place] | | | | | [place], 3rd floor | [address] | | | | | [place], [place] | [phone] | | | | | [address] | | | | | | [phone] | | | +--------+ + + + [...] + | CBC, WITH | Routin | 11/16/2010 | | Results for this | | DIFFERENTIAL | e | 9:41 AM | | procedure are in the | | | | PST | | results section. | + +--------+ + + + | COMPLETE METABOLIC | Routin | 11/16/2010 | | Results for this | | SET | e | 9:41 AM | | procedure are in the | | (NA,K,CL,CO2,BUN,CRE | | PST | | results section. | | AT,GLUC,CA,AST,ALT,B | | | | | | BRISEYDA TOTAL,ALK | | | | | | PHOS,ALB,PROT TOTAL) | | | | | + +--------+ + + + documented in this encounter Results CBC, WITH DIFFERENTIAL (11/16/2010 9:41 AM PST) + + + + + + | Component | Value | Ref Range | Performed | Pathologist | | | | | At | Signature | + + + + + + | WHITE CELL | 8.6 | K/cu mm | [facility] | | | COUNT | | | MEDICAL | | | | | | [facility] - | | | | | | [place] | | + + + + + + | RED CELL | 3.88 | M/cu mm | [facility] | | | COUNT | | | MEDICAL | | | | | | [facility] - | | | | | | [place] | | + + + + + + | HEMOGLOBIN | 11.5 (A) | 12.1999 - 15 | [facility] | | | | | g/dL | MEDICAL | | | | | | CENTER - | | | | | | [place] | | + + + + + + | HEMATOCRIT | 33.7 | % | [facility] | | | | | | MEDICAL | | | | | | [facility] - | | | | | | [place] | | + + + + + + | MCV | 87 | fL | [facility] | | | | | | MEDICAL | | | | | | CENTER - | | | | | | [place] | | + + + + + + | MCH | 29.7 | pg | [facility] | | | | | | MEDICAL | | | | | | CENTER - | | | | | | [place] | | + + + + + + | MCHC | 34.1 | g/dL | [facility] | | | | | | MEDICAL | | | | | | CENTER - | | | | | | [place] | | + + + + + + | PLATELET | 369 | K/cu mm | [facility] | | | COUNT | | | MEDICAL | | | | | | CENTER - | | | | | | [place] | | + + + + + + | NEUTROPHIL | 66.6 | % | [facility] | | | % | | | MEDICAL | | | | | | CENTER - | | | | | | [place] | | + + + + + + | LYMPHOCYTE | 23.2 | % | [facility] | | | % | | | MEDICAL | | | | | | CENTER - | | | | | | [place] | | + + + + + + | MONOCYTE % | 6.6 | % | [facility] | | | | | | MEDICAL | | | | | | CENTER - | | | | | | [place] | | + + + + + + | EOS % | 3.1 | % | [facility] | | | | | | MEDICAL | | | | | | CENTER - | | | | | | [place] | | + + + + + + | BASO % | 0.5 | % | [facility] | | | | | | MEDICAL | | | | | | CENTER - | | | | | | [place] | | + + + + + + | RDW | 16.7 | % | [facility] | | | | | | MEDICAL | | | | | | CENTER - | | | | | | [place] | | + + + + + + | MPV | | fL | [facility] | | | | | | MEDICAL | | | | | | CENTER - | | | | | | [place] | | + + + + + + | NEUTROPHIL | 5.7 | K/cu mm | [facility] | | | # | | | MEDICAL | | | | | | CENTER - | | | | | | [place] | | + + + + + + | LYMPHOCYTE | 2.0 | K/cu mm | [facility] | | | # | | | MEDICAL | | | | | | CENTER - | | | | | | [place] | | + + + + + + | MONOCYTE # | 0.6 | K/cu mm | [facility] | | | | | | MEDICAL | | | | | | CENTER - | | | | | | [place] | | + + + + + + | EOS # | 0.3 | K/cu mm | [facility] | | | | | | MEDICAL | | | | | | CENTER - | | | | | | [place] | | + + + + + + | BASO # | | | [facility] | | | | | | MEDICAL | | | | | | CENTER - | | | | | | [place] | | + + + + + + | SEDIMENTATI | 78 | mm/hr | [facility] | | | ON RATE | | | MEDICAL | | | | | | CENTER - | | | | | | [place] | | + + + + + + + + | Specimen | + + | Blood - Blood | + + + + + + + | Performing | Address | City/State/Zipcode | Phone Number | | Organization | | | | + + + + + | [facility] | [address] | [place] [address] | | | [facility] | | | | + + + + + COMPLETE METABOLIC SET (NA,K,CL,CO2,BUN,CREAT,GLUC,CA,AST,ALT,BILI TOTAL,ALK PHOS,ALB,PROT TOTAL) (11/16/2010 9:41 AM PST) + +---------+ + + + | Component | Value | Ref Range | Performed | Pathologist | | | | | At | Signature | + +---------+ + + + | GLUCOSE, | 112 (A) | 65 - 110 mg/dL | [facility] | | | PLASMA | | | MEDICAL | | | (LAB) | | | CENTER - | | | | | | [place] | | + +---------+ + + + | BUN, PLASMA | 6 | mg/dL | [facility] | | | (LAB) | | | MEDICAL | | | | | | CENTER - | | | | | | [place] | | + +---------+ + + + | CREATININE | 0.4 | mg/dL | [facility] | | | PLASMA | | | MEDICAL | | | (LAB) | | | CENTER - | | | | | | [place] | | + +---------+ + + + | TOTAL | 7.1 | g/dL | [facility] | | | PROTEIN, | | | MEDICAL | | | PLASMA | | | CENTER - | | | (LAB) | | | [place] | | + +---------+ + + + | ALBUMIN, | 3.3 | g/dL | [facility] | | | PLASMA | | | MEDICAL | | | (LAB) | | | CENTER - | | | | | | [place] | | + +---------+ + + + | CALCIUM, | 8.6 | mg/dL | [facility] | | | PLASMA | | | MEDICAL | | | (LAB) | | | CENTER - | | | | | | [place] | | + +---------+ + + + | BILIRUBIN | 0.9 | Transcutaneous | [facility] | | | TOTAL | | Bilirubinometer | MEDICAL | | | | | | CENTER - | | | | | | [place] | | + +---------+ + + + | ALK PHOS | 60 | U/L | [facility] | | | | | | MEDICAL | | | | | | CENTER - | | | | | | [place] | | + +---------+ + + + | AST(SGOT) | 15 | U/L | [facility] | | | | | | MEDICAL | | | | | | CENTER - | | | | | | [place] | | + +---------+ + + + | SODIUM, | 139 | mmol/L | [facility] | | | PLASMA | | | MEDICAL | | | (LAB) | | | CENTER - | | | | | | [place] | | + +---------+ + + + | POTASSIUM, | 4.1 | mmol/L | [facility] | | | PLASMA | | | MEDICAL | | | (LAB) | | | CENTER - | | | | | | [place] | | + +---------+ + + + | CHLORIDE, | 107 | mmol/L | [facility] | | | PLASMA | | | MEDICAL | | | (LAB) | | | CENTER - | | | | | | [place] | | + +---------+ + + + | TOTAL CO2, | 26 | mmol/L | [facility] | | | PLASMA | | | MEDICAL | | | (LAB) | | | CENTER - | | | | | | [place] | | + +---------+ + + + | ALT (SGPT) | 11 | U/L | [facility] | | | | | | MEDICAL | | | | | | CENTER - | | | | | | [place] | | + +---------+ + + + | ANION GAP | 10 | | [facility] | | | | | | MEDICAL | | | | | | CENTER - | | | | | | [place] | | + +---------+ + + + | OSMOLALITY, | 286 | | [facility] | | | CALCULATED | | | MEDICAL | | | | | | CENTER - | | | | | | [place] | | + +---------+ + + + + + | Specimen | + + | Blood - Blood | + + + + + + + | Performing | Address | City/State/Zipcode | Phone Number | | Organization | | | | + + + + + | [facility] | [address] | [place] [address] | | | [facility] | | | | + + + + + documented in this encounter Visit Diagnoses Not on filedocumented in this encounter"
--- OUTSIDE RECORDS SUMMARY | ~2020-05-01 | XMS | Encounter Summary ---
Demographics + + + | Address | [address] | | | [place] [address] | + + + | Home Phone | | + + + | Preferred Language | Unknown | + + + | Marital Status | Single | + + + | Taoist Affiliation | PRE | + + + [...] Team Providers + +------+ + | Care Channel Sales Manager Name | Role | Phone | [...] as of this encounter Progress Notes Interface, Neuropsychologist In - 06/03/2006 3:06 AM PDTCLINIC DATE: [...] by her new primary care physician in [place], and she is requesting a repeat hip [...] this would be inadvisable. Lloyd Garcia M.D. Tool Technician, Orthopedics and Rehabilitation / [id number] / [id number] / [id number] / [id number] cc: Ninfa Guillen M.D. [address] [facility], [place] [id number] signed by Interface, Neuropsychologist In at 06/03/2006 3:06 AM PDTInterface, Neuropsychologist In - 06/03/2006 3:06 AM PDTCLINIC DATE: [...] go ahead and send her back to [facility] Radiology Musculoskeletal specialist for a right intraarticular hip injection as this is what she wants. We will currently hold off on hip replacement due to her young age, and she can follow up back in the clinic in 6months' time. Tr Mcghee M.D. Lloyd Garcai M.D. / [id number] / [id number] / [id number] / Tdocumented in this encounter Plan of Treatment Not on filedocumented as of this encounter Visit Diagnoses Not on filedocumented in this encounter"
--- OUTSIDE RECORDS SUMMARY | ~2020-05-01 | XMS | Encounter Summary ---
Demographics + + + | Address | [address] | | | [place] [address] | + + + | Home Phone | | + + + | Preferred Language | Unknown | + + + | Marital Status | Single | + + + | Methodist Affiliation | PRE | + + + [...] | + + + + + | Casadnra Smith | ROBERTO | [place] | | + + + + + Care Team Providers + +------+ + | Care Metal Bumper Name | Role | Phone | + [...] | | | | | or | [address] | Pavilion | | | | | localized, | | [place], [place] | | | | | pelvic | | [address] | | | | | region and | | Phone: | | | | | thigh | | [phone] | | | | | Intervertebr | | Fax: | | | | | al lumbar | | [phone] | | | | | disc | [...] Pavilion | | | | | | [place], [place] | | | | | | [address] | | | | | | [phone] | | | +--------+---------+ + + + [...] tenderness. Severe gluteus medius limp. Most recent [facility] Laboratory Studies: Normal C-reactive protein at 0.5 (02/10/04), normal [facility] te cell count at 9.4 & [...] High Status 12/18/2005 Final Value: Radiologist 1: Raegna ALMAGUER M.D.-Radiologist 2: ANTIONETTE IRBY STUDY: ARTHROGRAM [...] this done around the time of the [place] so she can enjoy shopp ing. [...] hip arthroplasty if needed. Lloyd Garcia M.D. Cryogenics Engineer, Orthopedics and Rehabilitation documented in this encount [...]
--- OUTSIDE RECORDS SUMMARY | ~2020-05-01 | XMS | Encounter Summary ---
Demographics + + + | Address | [address] | | | [place] [address] | + + + | Home Phone [...] Author + + + | Author | [facility] | + + + | Organization | [facility] | + + + | Address | Unknown | + + + | Phone | Unavailable | + + + Support + + + + + | Name | Relationship | Address | Phone | + + + + + | Casandra Smith | ROBERTO | [place] | | + + + + + Care Team Providers + +------+ + | Care Reinforcer Name | Role | Phone | + +------+ + | Travis Mcginnis MD | PCP | | + +------+ + Encounter Details +--------+ + + + + | Date | Type | Department | Care Team | Description | +--------+ + + + + | 10/02/ | Hospital | Radiology/Imaging | Royce Durand, | | | 2019 | Encounter | Lab at [facility] [address] | [address] [facility] | | | | | [facility] for | [facility] | | | | | Health and Healing, | [place], [place] | | | | | | [address] | | | | | Floor [place], [place] | [phone] | | | | | [address] | | | | | | [phone] | | | +--------+ + + + [...] + + + +---------+ + + | Custar-3 Fatty | Take by mouth. | | [...] now presented. Final signature: Manuel Aldana | | 10/02/2018 10:09 AM Preliminary: Yue [...]
--- OUTSIDE RECORDS SUMMARY | ~2020-05-01 | XMS | Encounter Summary ---
Demographics + + + | Address | [address] | | | [place] [address] | + + + | Home Phone [...] Providers + +------+ + | Care Federal Appellate Clerk Name | Role | Phone | + +------+ + | Travis Mcginnis MD | PCP | | + +------+ + Encounter Details +--------+ + + + + | Date | Type | Department | Care Team | Description | +--------+ + + + + | 07/01/ | Abstract | Orthopaedics | Note, Orthopedics | | | 2018 | | [facility] | | | | | for Health and | | | | | | Healing [address] | | | | | | e [place] for | | | | | | Health and Healing, | | | | | | Building | | | | | | Floor [place], [place] | | | | | | [address] | | | | | | [phone] | | | +--------+ + + + [...] bone in back. 2009. Dr Lloyd Harris [facility] R JUAN DAVID 2002 Have you seen anyone for this yet? [facility] in [place]. ED 06/24 [facility] in [facility]. Has had sepsis and MRSA and need to lose 35 lbs per this office. Eugenie [facility] [phone] 07/03 via phone MRI May 2018 [facility] impax X-Ray May 2018 XR [facility] impax CT no Ultrasound no Other imaging [...] will you be traveling for this appointment? [place] Note: If patient traveling greater than 1 hour, consider coordinating any additi onal testing or appointments. Medical Review needed? yes Reminders: ? Ask patient if they d like to sign up for MyChart ? Don t forget to pull in CareEveryWhere Additional Comments: documented in this encounte r Plan of Treatment Not on filedocumented as of this encounter Visit Diagnoses Not on filedocumented in this encounter
--- OUTSIDE RECORDS SUMMARY | ~2020-05-01 | XMS | Encounter Summary ---
Demographics + + + | Address | [address] | | | [place] [address] | + + + | Home Phone [...] Providers + +------+ + | Care Retail Merchandising Specialist Name | Role | Phone | + +------+ + | Travis Mcginnis MD | PCP | | + +------+ + Encounter Details +--------+ + + + + | Date | Type | Department | Care Team | Description | +--------+ + + + + | 11/09/ | Documentati | Vascular Access at | Lis Banuelos | | | 2010 | on | [facility] [address] | HERMINIO Swain [address] | | | | | [address] | [address] | | | | | [facility] | Rd [place], [place] | | | | | [place], [place] | [address] | | | | | [address] | | | | | | [phone] | | | +--------+ + + + [...]
--- OUTSIDE RECORDS SUMMARY | ~2020-05-01 | XMS | Encounter Summary ---
Demographics + + + | Address | [address] | | | [place] [address] | + + + | Home Phone [...] Team Providers + +------+ + | Care Trial Paralegal Name | Role | Phone | + +------+ + PCP | Unavailable | + +------+ + Encounter Details +--------+ + + + + | Date | Type | Department | Care Team | Description | +--------+ + + + + | 10/01/ | Results | | Alonzo Bobby | | | 2003 | Only | | | | +--------+ [...] + + | DIFFERENTIAL | Routin | 10/02/2003 | | Results for this | | | e | 6:35 PM | | procedure are in the | | | | PST | | results section. | + +--------+ + + + | CBC, WITH | Routin | 10/02/2003 | | Results for this | | DIFFERENTIAL | e | 6:35 PM | | procedure are in the | | | | PST | | results section. | + +--------+ + + + | TYPE AND CROSSMATCH | Routin | 10/02/2003 | | Results for this | | | e | 7:45 AM | | procedure are in the | | | | PST | | results section. | + +--------+ + + + | HEMATOCRIT | Routin | 10/01/2003 | | Results for this | | | e | 5:45 AM | | procedure are in the | | | | PST | | results section. | + +--------+ + + + documented in this encounter Results DIFFERENTIAL (10/02/2003 6:35 PM PST) + +---------+ + + + | Component | Value | Ref Range | Performed | Pathologist | | | | | At | Signature | + +---------+ + + + | NEUTROPHIL | 76 (H) | 50 - 70 % | [facility] | | | % | | | DEPARTMENT | | | | | | OF | | | | | | PATHOLOGY | | + +---------+ + + + | LYMPHOCYTE | 16 (L) | 18 - 42 % | [facility] | | | % | | | DEPARTMENT | | | | | | OF | | | | | | PATHOLOGY | | + +---------+ + + + | MONOCYTE % | 4 | 2 - 8 % | [facility] | | | | | | DEPARTMENT | | | | | | OF | | | | | | PATHOLOGY | | + +---------+ + + + | EOS % | 4 (H) | 1 - 3 % | [facility] [...] +---------+ + + + | NEUTROPHIL | 8.3 (H) | 1.8 - 7.7 K/cu | [facility] | | | # | | mm | DEPARTMENT | | | | | | OF | | | | | | PATHOLOGY | | + +---------+ + + + | LYMPHOCYTE | 1.7 | 1.0 - 4.8 K/cu | [facility] | | | # | | mm | DEPARTMENT | | | | | | OF | | | | | | PATHOLOGY | | + +---------+ + + + | MONOCYTE # | 0.4 | 0.1 - 0.6 K/cu | [facility] [...] | + + + + + | [facility] DEPARTMENT | [address] [facility] | [place] [address] | | | PATHOLOGY | [address] | | | + + + + + | [facility] DEPARTMENT OF | [address] [facility] | [place] [address] | | | PATHOLOGY | [address] | | | + + + + + CBC, WITH DIFFERENTIAL (10/02/2003 6:35 PM PST) + + + + + + | Component | Value | Ref Range | Performed | Pathologist | | | | | At | Signature | + + + + + + | WHITE CELL | 10.9 | 4.4 - 11.0 K/cu | [facility] | | | COUNT | | mm | DEPARTMENT | | | | | | OF | | | | | | PATHOLOGY | | + + + + + + | RED CELL | 3.18 (L) | 3.65 - 5.10 | [facility] | | | COUNT | | M/cu mm | DEPARTMENT | | | | | | OF | | | | | | PATHOLOGY | | + + + + + + | HEMOGLOBIN | 9.1 (L) | 11.4 - 15.0 | [facility] | | | | | g/dL | DEPARTMENT | | | | | | OF | | | | | | PATHOLOGY | | + + + + + + | HEMATOCRIT | 27.1 (L) | 33.0 - 44.6 % | [...] + + + + | PLATELET | 587 (H) | 150 - 400 K/cu | [facility] | | | COUNT | | mm | DEPARTMENT | | | | | | OF | | | | | | PATHOLOGY | | + + + + + + | MPV | 5.4 (L) | 7.4 - 10.4 fL | [...] DEPARTMENT OF | [address] | [place] [address] | | | PATHOLOGY | [address] | | | + + + + + | [facility] DEPARTMENT OF | [address] | [place] [address] | | | PATHOLOGY | [address] | | | + + + + + ANTIBODY SCREEN & CROSSMATCH (10/02/2003 7:45 AM PST) + +---------+ + + + | Component | Value | Ref Range | Performed | Pathologist | | | | | At | Signature | + +---------+ + + + | ABO GROUP | Dup req | | [facility] | | | | | | DEPARTMENT | | | | | | OF | | | | | | PATHOLOGY | | + +---------+ + + + | RH TYPE | Dup req | | [facility] | | | | | | DEPARTMENT | | | | | | OF | | | | | | PATHOLOGY | | + +---------+ + + + | ANTIBODY | Dup req | | [facility] | | | SCREEN [...] | + + + + + | [facility] | [address] [facility] | [place] [address] | | | PATHOLOGY | [address] | | | + + + + + | [facility] DEPARTMENT OF | [address] [facility] | [place] [address] | | | PATHOLOGY | [address] | | | + + + + + HEMATOCRIT (10/01/2003 5:45 AM PST) + + + + + + | Component | Value | Ref Range | Performed | Pathologist | | | | | At | Signature | + + + + + + | HEMATOCRIT | 22.6 (L) | 33.0 - 44.6 % | [...] | + + + + + | [facility] | [address] | [place] [address] | | | PATHOLOGY | [address] | | | + + + + + | [facility] | [address] | [place] [address] | | | PATHOLOGY | [address] | | | + + + + + documented in this encounter Visit Diagnoses Not on filedocumented in this encounter"
--- OUTSIDE RECORDS SUMMARY | ~2020-05-01 | XMS | Encounter Summary ---
Demographics + + + | Address | [address] | | | [place] [address] | + + + | Home Phone [...] Team Providers + +------+ + | Care Jewelry Appraiser Name | Role | Phone | + +------+ + | No Pcp Per Patient | PCP | Unavailable | + +------+ + Encounter Details +--------+ + + + + | Date | Type | Department | Care Team | Description | +--------+ + + + + | 12/15/ | Online Producer | Orthopaedics at | Kalyna Arias MD | JUAN DAVID (Total Hip | | 2008 | | [facility] [address] | [address] | Arthroplasty) | | | | [address] | [address] | (Primary Dx) | | | | Mailcode: PV430 | [place], [place] | | | | | [facility] | [address] | | | | | [place], [place] | [phone] | | | | | [address] | | | | | | [phone] | | | +--------+ + + + [...] filedocumented as of this encounter Results X-RAY PELVIS 1 VIEW [...] + + X-RAY HIP 2 VIEWS RIGHT (12/16/2008 1:36 [...]
--- OUTSIDE RECORDS SUMMARY | ~2020-05-01 | XMS | Encounter Summary ---
Demographics + + + | Address | [address] | | | [place] [address] | + + + | Home Phone [...] Team Providers + +------+ + | Care Continuous Linter Drier Operator Name | Role | Phone | [...] | | | | Mailcode: PV430 | [facility] [place] | (injection) | | | | [facility] | [address] | | | | | [facility] [place] | [phone] | | | | | [address] | | | | | | [phone] | | | +--------+ + + + [...]
--- OUTSIDE RECORDS SUMMARY | ~2020-05-01 | XMS | Encounter Summary ---
Demographics + + + | Address | [address] | | | [place] [address] | + + + | Home Phone [...] Team Providers + +------+ + | Care Lithographed Plate Inspector Name | Role | Phone | [...] | Diseases at [facility] | MEGAN Reddy [address] | | | | | [address] | [address] | | | | | Loop Physician's | [place], [place] | | | | | [place], 3rd floor | [address] | | | | | [place], [place] | [phone] | | | | | [address] | | | | | | [phone] | | | +--------+ + + + [...] CELL | 7.8 | K/cu mm | [facility] | | | COUNT | | | MEDICAL | | | | | | CENTER - | | | | | | [place] | | + +-------+ + + + | RED CELL | 4.86 | M/cu mm | [facility] | | | COUNT | | | MEDICAL | | | | | | CENTER - | | | | | | [place] | | + +-------+ + + + | HEMOGLOBIN | 14.1 | 12.1999 - 15 | [facility] | | | | | g/dL | MEDICAL | | | | | | CENTER - | | | | | | [place] | | + +-------+ + + + | HEMATOCRIT | 41.2 | % | [facility] | | | | | | MEDICAL | | | | | | [facility] - | | | | | | [place] | | + +-------+ + + + | MCV | 85 | fL | [facility] | | | | | | MEDICAL | | | | | | [facility]ENTER - | | | | | | [place] | | + +-------+ + + + | MCH | 29 | pg | [facility] | | | | | | MEDICAL | | | | | | CENTER - | | | | | | [place] | | + +-------+ + + + | MCHC | 34.2 | g/dL | [facility] | | | | | | MEDICAL | | | | | | [facility]ENTER - | | | | | | [place] | | + +-------+ + + + | PLATELET | 367 | K/cu mm | [facility] | | | COUNT | | | MEDICAL | | | | | | CENTER - | | | | | | [place] | | + +-------+ + + + | NEUTROPHIL | 59.2 | % | [facility] | | | % | | | MEDICAL | | | | | | [facility]ENTER - | | | | | | [place] | | + +-------+ + + + | LYMPHOCYTE | 32.5 | % | [facility] | | | % | | | MEDICAL | | | | | | [facility]ENTER - | | | | | | [place] | | + +-------+ + + + | MONOCYTE % | 6.1 | % | [facility] | | | | | | MEDICAL | | | | | | [facility]ENTER - | | | | | | [place] | | + +-------+ + + + | EOS % | 1.5 | % | [facility] | | | | | | MEDICAL | | | | | | [facility]ENTER - | | | | | | [place] | | + +-------+ + + + | BASO % | 0.7 | % | [facility] | | | | | | MEDICAL | | | | | | CENTER - | | | | | | [place] | | + +-------+ + + + | RDW | 14.5 | % | [facility] | | | | | | MEDICAL | | | | | | CENTER - | | | | | | [place] | | + +-------+ + + + | MPV | | fL | [facility] | | | | | | MEDICAL | | | | | | CENTER - | | | | | | [place] | | + +-------+ + + + | NEUTROPHIL | 4.6 | K/cu mm | [facility] | | | # | | | MEDICAL | | | | | | [facility] - | | | | | | [place] | | + +-------+ + + + | LYMPHOCYTE | 2.5 | K/cu mm | [facility] | | | # | | | MEDICAL | | | | | | [facility] - | | | | | | [place] | | + +-------+ + + + | MONOCYTE # | 0.5 | K/cu mm | [facility] | | | | | | MEDICAL | | | | | | CENTER - | | | | | | [place] | | + +-------+ + + + | EOS # | 0.1 | K/cu mm | [facility] | | | | | | MEDICAL | | | | | | CENTER - | | | | | | [place] | | + +-------+ + + + | BASO # | 0.1 | | [facility] | | | | | | MEDICAL | | | | | | CENTER - | | | | | | [place] | | + +-------+ + + + | PHOSPHORUS, | 3.9 | mg/dL | [facility] | | | PLASMA | | | [...] | + + + + + | [facility] | [address] | [place] [address] | | | [facility] - [place] | | | | + + + + + COMPLETE METABOLIC SET (NA,K,CL,CO2,BUN,CREAT,GLUC,CA,AST,ALT,BILI TOTAL,ALK PHOS,ALB,PROT TOTAL) (03/01/2011 9:55 AM PDT) + +-------+ + + + | Component | Value | Ref Range | Performed | Pathologist | | | | | At | Signature | + +-------+ + + + | GLUCOSE, | 106 | 65 - 110 mg/dL | [facility] | | | PLASMA | | | MEDICAL | | | (LAB) | | | CENTER - | | | | | | [place] | | + +-------+ + + + | BUN, PLASMA | 10 | mg/dL | [facility] | | | (LAB) | | | MEDICAL | | | | | | CENTER - | | | | | | [place] | | + +-------+ + + + | CREATININE | 0.7 | mg/dL | [facility] | | | PLASMA | | | MEDICAL | | | (LAB) | | | CENTER - | | | | | | [place] | | + +-------+ + + + | TOTAL | 7.4 | g/dL | [facility] | | | PROTEIN, | | | MEDICAL | | | PLASMA | | | CENTER - | | | (LAB) | | | [place] | | + +-------+ + + + | ALBUMIN, | 3.8 | g/dL | [facility] | | | PLASMA | | | MEDICAL | | | (LAB) | | | CENTER - | | | | | | [place] | | + +-------+ + + + | CALCIUM, | 9.2 | mg/dL | [facility] | | | PLASMA | | | MEDICAL | | | (LAB) | | | CENTER - | | | | | | [place] | | + +-------+ + + + | BILIRUBIN | 0.3 | Transcutaneous | [facility] | | | TOTAL | | Bilirubinometer | MEDICAL | | | | | | CENTER - | | | | | | [place] | | + +-------+ + + + | ALK PHOS | 72 | U/L | [facility] | | | | | | MEDICAL | | | | | | CENTER - | | | | | | [place] | | + +-------+ + + + | AST(SGOT) | 10 | U/L | [facility] | | | | | | MEDICAL | | | | | | CENTER - | | | | | | [place] | | + +-------+ + + + | SODIUM, | 141 | mmol/L | [facility] | | | PLASMA | | | MEDICAL | | | (LAB) | | | CENTER - | | | | | | [place] | | + +-------+ + + + | POTASSIUM, | 4.4 | mmol/L | [facility] | | | PLASMA | | | MEDICAL | | | (LAB) | | | CENTER - | | | | | | [place] | | + +-------+ + + + | CHLORIDE, | 107 | mmol/L | [facility] | | | PLASMA | | | MEDICAL | | | (LAB) | | | CENTER - | | | | | | [place] | | + +-------+ + + + | TOTAL CO2, | 30 | mmol/L | [facility] | | | PLASMA | | | MEDICAL | | | (LAB) | | | CENTER - | | | | | | [place] | | + +-------+ + + + | ALT (SGPT) | 14 | U/L | [facility] | | | | | | MEDICAL | | | | | | CENTER - | | | | | | [place] | | + +-------+ + + + | SEDIMENTATI | 29 | mm/hr | [facility] | | | ON RATE | | [...] | + + + + + | [facility] | [address] | [place] [address] | | | C[facility] [place] | | | | + + + + + documented in this encounter Visit Diagnoses Not on filedocumented in this encounter"
--- OUTSIDE RECORDS SUMMARY | ~2020-05-01 | XMS | Encounter Summary ---
Demographics + + + | Address | [address] | | | [place] [address] | + + + | Home Phone | | + + + | Preferred Language | Unknown | + + + | Marital Status | Single | + + + | Faith Affiliation | PRE | + + + | Race | White | + + + | Ethnic Group | Not or | + + + Author + + + | Author | [facility] | + + + | Organization | [facility] | + + + | [...] + +------+ + | Care Public Health Physician Name | Role | Phone | [...] | Head and Neck | MEGAN Reddy [address] [facility] | | | | | Surgery Services at | [facility] | | | | | [facility] [address] | [place], [place] | | | | | [address] | [address] | | | | | Physician's | [phone] | | | | | Pav[facility], [facility] floor | | | | | | [place], [place] | | | | | | [address] | | | | | | [phone] | | | +--------+ + + + [...]
--- OUTSIDE RECORDS SUMMARY | ~2020-05-01 | XMS | Encounter Summary ---
Demographics + + + | Address | [address] | | | [place] [address] | + + + | Home Phone [...] + + + | Casandra Smith | ROEBRTO | [place] | | + + + + + Care Team Providers + +------+ + | Care Director Of Operations Home Health Name | Role | Phone | + [...] as of this encounter Progress Notes Interface, Hazardous Waste Technician In - 04/28/2005 5:10 PM PDTClinic Date: [...] has been at her friend's house in [facility] and has been receiving IV antibiotics [...] Benson Boone M.D. Lloyd Garcia M.D. / [id number] / [id number] / [id number] / [id number] Tdocumented in this encounter Plan of Treatment Not on filedocumented as of this encounter Visit Diagnoses Not on filedocumented in this encounter"
--- OUTSIDE RECORDS SUMMARY | ~2020-05-01 | XMS | Encounter Summary ---
Demographics + + + | Address | [address] | | | [place] [address] | + + + | Home Phone [...] Team Providers + +------+ + | Care Electric Power Line Repairer Name | Role | Phone | + +------+ + PCP | Unavailable | + +------+ + Encounter Details +--------+ + + + + | Date | Type | Department | Care Team | Description | +--------+ + + + + | 12/23/ | Results | Orthopaedics at | Gino Baker MD | | | 2006 | Only | [facility] [address] | [address] | | | | | [address] | [place], | | | | | Mailcode: [id number] | [place] [address] | | | | | [facility] | | | | | | [place] | | | | | | [address] | | | | | | [phone] | | | +--------+ + + + [...] X-RAY INJ JOINT HIP | Routin | 12/30/2006 | | Results for this | | KNEE SHOULDR | e | 3:51 PM | | procedure are in the | | | | PDT | | results section. | + +--------+ + + + documented in this encounter Results INJ JOINT HIP KNEE SHOULDR (12/30/2006 3:51 PM PDT) + + + + + + | Component | Value | Ref Range | Performed | Pathologist | | | | | At | Signature | + + + + + + | INJ JOINT | Radiologist 1: TRIPP, | | | | | HIP KNEE | Raegan HERRERA, | | | | | SHOULDR | M.D.ARTHROGRAM AND | | | | | | [...]
--- OUTSIDE RECORDS SUMMARY | ~2020-05-01 | XMS | Encounter Summary ---
Demographics + + + | Address | [address] | | | [place] [address] | + + + | Home Phone | | + + + | Preferred Language | Unknown | + + + | Marital Status | | + + + | Quaker Affiliation | [id number] | + + + | Race | Unknown | + + + | Ethnic Group | Unknown | + + + Author + + + | Author | [facility] | | | and [place] | + + + | Organization | [facility] | | | and [...] Team Providers + +------+ + | Care Skilled Labor Name | Role | Phone | + [...] + + | Closed | Specialty | Nutrition / | Diagnoses | [place] | Ayden | | | Services | Diabetes | Left hip | Jasper Storey MD | Diabetes | | | Required | Services | pain Morbid | [address] | Services | | | | | obesity | [address] | [address] | | | | | with BMI of | [place], | [place], | | | | | 50.0-59.9, | [place] [address] | [place] [address] | | | | | adult (HCC) | Phone: | Phone: | | | | | Procedures | [phone] | [phone] | | | | | MELVI | Fax: | Fax: | | | | | Nutrition | [phone] | [phone] | | | | | Counseling | | | | | | | Non-Cvd | | | +--------+ + + + + + Reason for Visit + + + | Reason | Comments | + + + | Hip Pain | left | + + + Service/Procedure (Routine) +--------+ + + + + + | Status | Reason | Specialty | Diagnoses / | Referred By | Referred To | | | | | Procedures | Contact | Contact | +--------+ + + + + + | Closed | Second | | Diagnoses | Jenkins, | Jim[facility] | | | Opinion | | Unilateral | Marta, AXLE POLISHER | [address] | | | | | primary | [address] | | | | | osteoarthrit | | [place], [place] | | | | | is, left hip | [place], | [address] | | | | | Pain in | [place] [address] | Phone: | | | | | left hip | Phone: | [phone] | | | | | Unilateral | [phone] | Fax: | | | | | primary | Fax: | [phone] | | | | | osteoarthrit | [phone] | | | | | | is, left | | | | | | | hip, Pain in | | | | | | | left hip | | | +--------+ + + + + + Encounter Details +--------+---------+ + + + | Date | Type | Department | Care Team | Description | +--------+---------+ + + + | 07/08/ | Office | [facility] | Jasper Medrano, | Primary | | 2019 | Visit | [place] [address] [address] | [address] | osteoarthritis of | | | | BLVD [place], [place] | [place], [place] | left hip (Primary | | | | [address] | [address] | Dx); Left hip pain; | | | | [phone] | | H/O total hip | | | | | | arthroplasty, right; | | | | | | Morbid [...] + + + | Blood Pressure | 136/78 | 07/08/2019 10:19 AM | | | | | PDT | | + + + + + | Pulse | 117 | 07/08/2019 10:19 AM | | | | | PDT | | + + + + + | Temperature | - | - | | + + + + + | Respiratory Rate | - | - | | + + + + + | Oxygen Saturation | 95% | 07/08/2019 10:19 AM | | | | | PDT | | + + + + + | Inhaled Oxygen | - | - | | | Concentration | | | | + + + + + | Weight | 127 kg (280 lb) | 07/08/2019 10:19 AM | | | | | PDT | | + + + + + | Height | 164.5 cm (5' 4.75") | 07/08/2019 10:19 AM | | | | | PDT | | + + + + + | Body Mass Index | 46.95 | 07/08/2019 10:19 AM | | | | | PDT | | + + + + + documented in this encounter Progress Notes Jasper Medrano MD - 07/08/2019 10:00 AM PDTFormatting of this note might be differen t from the original. 07/08/2019 Chief Complaint Chief Complaint Patient presents with Hip Pain left HPI HPI Patient is here today for left hip pain, has been ongoing for 3 years. Swelling on patient feet and leg, will occasionally feel tingling sensation. Sometimes will feel numbness on the left thigh. Patient states she got a pain injection on left hip side last week. Patient sta jyotsna that she has tried PT, states she did not feel like it helped. Then stated she needed an other referral for PT if she wanted to continue that. This is a 29-year-old female who presents for long-standing history of left hip pain. Caus ing her progressive debility. Currently she has to walk with the assistance of a walker wit h a significant antalgic gait. She has been on a medication consisting of oxycodone 5 mg fo r many years now. This is provided to her by her primary care physician. She reports that this pain significantly makes it difficult for her to participate in ADLs sleep and otherwis e live a comfortable life. 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 She reports that over the last 10 years she has not had any further signs of infecti on and she denies illness fevers chills today. Vital Signs Vitals: 07/08/19 1019 BP: 136/78 Pulse: 117 PainSc: 10 - Worst pain ever PainLoc: Hip Past Medical History: Diagnosis Date Arthritis bilateral shoulders Chronic pain COPD with asthma (HCC) Hypertension Other chronic pain Past Surgical History: Procedure Laterality Date APPENDECTOMY CHOLECYSTECTOMY HYSTERECTOMY KNEE SURGERY Bilateral OTHER SURGICAL HISTORY Right OTHER SURGICAL HISTORY TONSILLECTOMY AND ADENOIDECTOMY URETEROSCOPY Right 11/25/2016 Procedure: RIGHT URETEROSCOPY W/ LASER LITHOTRIPSY RIGHT URETERAL STENT PLACEMENT. ; Surg andrés: Rustam Schmid MD; Location: [facility] MA[facility] OR Social History Tobacco Use Smoking status: Current Every Day Smoker Packs/day: 0.50 Years: 50.00 Pack years: 25.00 Smokeless tobacco: Current User Tobacco comment: 1 pack daily Substance Use Topics Alcohol use: No Drug use: Yes Types: Marijuana Comment: Drug use: Yes Family History Problem Relation Age of Onset Cancer Father Current Medications Current Outpatient Medications: albuterol (VENTOLIN HFA) 90 mcg/puff inhaler, Inhale 1 puff every 6 hours as needed fo r shortness of breath, Disp: , Rfl: albuterol 90 mcg/puff inhaler, Inhale 1 puff every 6 hours as needed for shortness of breath, Disp: , Rfl: diclofenac (VOLTAREN) 75 mg EC tablet, Take 1 tablet by mouth 2 (two) times daily., Di sp: , Rfl: docusate sodium (COLACE) 100 mg capsule, Take 100 mg by mouth every 12 hours as needed ., Disp: , Rfl: omeprazole (PRILOSEC) 20 mg capsule, Take 20 mg by mouth Daily., Disp: , Rfl: oxyCODONE-acetaminophen (PERCOCET) 5-325 mg per tablet, Take 1 tablet by mouth every 4 hours as needed for Pain for up to 30 days., Disp: 120 tablet, Rfl: 0 Allergies Allergies Allergen Reactions Atorvastatin Hives and Rash Morphine Itching, Rash, Hives and Nausea And Vomiting Adhesive & Tape Rash Fluoxetine Itching Prozac (fluoxetine) Note:made her suicidal; Type:Drug; Dt:02/09/2009; Levofloxacin Itching Sulfa Antibiotics Rash Gives intestinal flu Lipitor Family History family history includes Cancer in her father. Social History Social History Tobacco Use Smoking status: Current Every Day Smoker Packs/day: 0.50 Years: 50.00 Pack years: 25.00 Smokeless tobacco: Current User Tobacco comment: 1 pack daily Substance Use Topics Alcohol use: No Drug use: Yes Types: Marijuana Comment: Drug use: Yes Active comorbid conditions include: - hypertension - asthma - COPD - sleep apnea - kidney stones - obesity - psychiatric problem - depression - Drugs/Alcohol/Tobacco - substance abuse - tobacco use ROS Review of Systems Constitutional: Negative for chills and fever. Respiratory: Negative for shortness of breath. Cardiovascular: Positive for leg swelling. Negative for chest pain and claudication. Genitourinary: Negative for dysuria. Musculoskeletal: Positive for joint pain. Skin: Negative for rash. Neurological: Positive for weakness. Negative for sensory change. Endo/Heme/Allergies: Does not bruise/bleed easily. Psychiatric/Behavioral: Positive for depression and substance abuse. All other systems reviewed and are negative. Physical Exam Ortho Exam Physical Exam Well Developed, Well Nourished Gait: Antalgic Assistive Device: Walker Awake, Alert, and Oriented X3 Mood and Affect appropriate for situation Breathing unlabored Hip: Left: Tender to palpation over the greater trochanter ROM: Extremely limited causing significant pain with any motion. Strength: 5 out of 5 with ankle dorsiflexion plantarflexion. Sensation intact in DP/SP/SLADE/SA/PT distributions Dorsalis pedis pulse palpable but weak Right: Full painless range of motion Strength: 5 out of 5 strength throughout Sensation intact in DP/SP/SLADE/SA/PT distributions Dorsalis pedis pulse palpable but weak Bilateral early venous stasis skin changes IMAGING: Recent Results (from the past 360 hour(s)) XR Hip Bilateral 2 Views Narrative AP of the pelvis and 2 views of lateral hips which demonstrate a right total hip arthroplasty in good position without evidence of loosening or subsidence. However this is a ecnzk-vc-vogkz prosthesis. Did not seem to be any significant ostial lysis around either of the components. There is evidence in the femur of previously removed hardware. 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 The left hip shows severe fmdf-dv-idvq arthritis without any evidence of residual joint space. There is prominent sclerosis and marginal osteophyte formation and subchondral cyst formation. The visualized lumbar spine show significant degenerative changes. Jasper Medrano MD Assessment and Plan ICD-10-CM ICD-9-CM 1. Primary osteoarthritis of left hip M16.12 715.15 2. Left hip pain M25.552 719.45 XR Hip Bilateral 2 Views CBC with Differential Chromium level [place] Prealbumin Sedimentation Rate C-Reactive Protein Nutrition Referral 3. H/O total hip arthroplasty, right Z96.641 V43.64 This is a 59-year-old female with history of right total hip arthroplasty 10 years ago whic h was complicated by infection who now presents with severe end-stage left hip osteoarthriti s. We had an extensive discussion about her current situation and the need for an eventual total hip arthroplasty. However the patient currently is not appropriate candidate for a nu mber of reasons which we discussed. The first reason he gives me pause is her history of ri ght hip infection. We will order ESR CRP and CBC to rule out active infection. I discussed with her that even if these are negative that does not rule out a latent infection which ma y make her risk of infection of the contralateral hip higher. We also discussed her history of smoking for which she is currently a smoker. I informed her that she has to be complete ly off all forms of tobacco and nicotine prior to scheduling surgery and that she would be t ested for nicotine if or when we have scheduled surgery. I also counseled her that her surg ora be canceled but positive. We had an extensive discussion about her weight and about the increased risk of infection secondary to increased weight. As a result we will order pre-a lbumin and sent her for nutrition counseling. I also offered her referral to bariatric surg ora which she currently would not like to pursue. Overall this patient would be a high risk candidate for left total hip surgery. If we can get some of these parameters under control I would be willing to perform surgery with the un derstanding that she has at an increased risk and would need to accept these risks in order to proceed. We will have the patient follow-up in 3 months to give her time to address these issues Return in about 3 months (around 10/08/2019). No notes on file Jasper Medrano MD documented in th is encounter Plan of Treatment +--------+---------+ + + + | Date | Type | Specialty | Care Team | Description | +--------+---------+ + + + | 05/23/ | Office | Pain Medicine | Xiang Sepulveda, | | | 2019 | Visit | | DO [address] | | | | | | [place] | | | | | | [address] | | | | | | | | +--------+---------+ + + + + + +--------+ + + | Name | Type | Priori | Associated Diagnoses | Order Schedule | | | | ty | | | + + +--------+ + + | Nutrition Referral | Outpatient | Routin | Left hip pain | Ordered: 07/08/2019 | | | Referral | e | Morbid obesity with | | | | | | BMI of 50.0-59.9, | | | | | | adult (HCC) | | + + +--------+ + + documented as of this encounter Results C-Reactive Protein (07/29/2019 10:58 AM PDT) + + + + + + | Component | Value | Ref Range | Performed | Pathologist | | | | | At | Signature | + + + + + + | CRP | 1.0 (H)Comment: Testing | <0.5 mg/dL | REFERENCE | | | | performed at [facility];[address] | | LAB | | | | [place] | | [facility] | | | | [address];[place] [address] | | LABORATORY | | + + + + + + + + | Specimen | + + | Blood | + + + + + + + | Performing | Address | City/State/Zipcode | Phone Number | | Organization | | | | + + + + + | REFERENCE LAB | [address] [place], [place] [address] | [place] | [phone] | | [facility] | Bl[address] | [address] | | | LABORATORY | | | | + + + + + | REFERENCE LAB | [address] [place] [address] | [place] | | | [facility] | Bl[address] | [address] | | | LABORATORY | | | | + + + + + Sedimentation Rate (07/29/2019 10:58 AM PDT) + + + + + + | Component | Value | Ref Range | Performed | Pathologist | | | | | At | Signature | + + + + + + | ESR | 33 (H)Comment: Testing | 0 - 30 mm/Hr | REFERENCE | | | | performed at [facility];[address] | | LAB | | | | [place] | | [facility] | | | | [address];[place] [address] | | LABORATORY | | + + + + + + + + | Specimen | + + | Blood | + + + + + + + | Performing | Address | City/State/Zipcode | Phone Number | | Organization | | | | + + + + + | REFERENCE LAB | [address] [place] [address] | [place] | [phone] | | [facility] | Bl[address] | [address] | | | LABORATORY | | | | + + + + + | REFERENCE LAB | [address] [facility] | [place] | | | [facility] | Bl[address] | [address] | | | LABORATORY | | | | + + + + + Prealbumin (07/29/2019 10:58 AM PDT) + + + + + + | Component | Value | Ref Range | Performed | Pathologist | | | | | At | Signature | + + + + + + | Prealbumin | 18.8 (L)Comment: Testing | 20.0 - 40.0 | REFERENCE | | | | performed at [facility];[address] | mg/dL | LAB | | | | [place] | | [facility] | | | | [address];[place] [address] | | LABORATORY | | + + + + + + + + | Specimen | + + | Blood | + + + + + + + | Performing | Address | City/State/Zipcode | Phone Number | | Organization | | | | + + + + + | REFERENCE LAB | [address] [place] [address] | [place] | [phone] | | [facility] | Bl[address] | [address] | | | LABORATORY | | | | + + + + + | REFERENCE LAB | [address] [place] [address] | [place] | | | [facility] | Bl[address] | [address] | | | LABORATORY | | | | + + + + + [place] (07/29/2019 10:58 AM PDT) + + + + + + | Component | Value | Ref Range | Performed | Pathologist | | | | | At | Signature | + + + + + + | [place], | None DetectedComment: | 0.0 - 0.9 ug/L | REFERENCE | | | Ser/Plas | This test was developed | | LAB | | | | and its performance | | [facility] | | | | characteristicsdetermine | | LABORATORY | | | | d by [email or web address]. It has not | | | | | | been cleared or | | | | | | approvedby the Food and | | | | | | Drug Administration. | | | | | | | | | | | | Occupational | | | | | | Exposure: [place] 1.0 | | | | | | | | | | | | Detection | | | | | | Limit = 1.0Testing | | | | | | performed at [facility], [address] | | | | | | [place] | | | | | | [place] [address] | | | | + + + + + + + + | Specimen | + + | Blood | + + + + + + + | Performing | Address | City/State/Zipcode | Phone Number | | Organization | | | | + + + + + | REFERENCE LAB | [address] [place] [address] | [place], [place] | [phone] | | [facility] | Bl[address] | [address] | | | LABORATORY | | | | + + + + + | REFERENCE LAB | [address] [place] [address] | [place], [place] | | | [facility] | Bl[address] | [address] | | | LABORATORY | | | | + + + + + Chromium level (07/29/2019 10:58 AM PDT) + + + + + + | Component | Value | Ref Range | Performed | Pathologist | | | | | At | Signature | + + + + + + | Chromium, | 2.2 (H)Comment: This | 0.1 - 2.1 ug/L | REFERENCE | | | Plasma | test was developed and | | LAB | | | | its performance | | [facility] | | | | characteristicsdetermine | | LABORATORY | | | | d by [facility]. It has not | | | | | | been cleared or | | | | | | approvedby the Food and | | | | | | Drug Administration. | | | | | | | | | | | | | | | | | | Detection Limit = | | | | | | 0.1Testing performed at | | | | | | [facility], [address] | | | | | | [place] | | | | | | [address] | | | | + + + + + + + + | Specimen | + + | Blood | + + + + + + + | Performing | Address | City/State/Zipcode | Phone Number | | Organization | | | | + + + + + | REFERENCE LAB | [address] [place] [address] | [place], [place] | [phone] | | [facility] | Bl[address] | [address] | | | LABORATORY | | | | + + + + + | REFERENCE LAB | [address] [place] [address] | [place], [place] | | | [facility] | Blvd[address] | [address] | | | LABORATORY | | | | + + + + + CBC with Differential (07/29/2019 10:58 AM PDT) + + + + + + | Component | Value | Ref Range | Performed | Pathologist | | | | | At | Signature | + + + + + + | WBC | 12.11 (H) | 3.80 - 11.00 | REFERENCE | | | | | K/uL | LAB | | | | | | [facility] | | | | | | LABORATORY | | + + + + + + | Red Blood | 4.79 | 3.70 - 5.10 | REFERENCE | | | Cells | | M/uL | LAB | | | | | | [facility] | | | | | | LABORATORY | | + + + + + + | Hemoglobin | 13.8 | 11.3 - 15.5 | REFERENCE | | | | | g/dL | LAB | | | | | | [facility] | | | | | | LABORATORY | | + + + + + + | Hematocrit | 41.9 | 34.0 - 46.0 % | REFERENCE | | | | | | LAB | | | | | | [facility] | | | | | | LABORATORY | | + + + + + + | MCV | 87.6 | 80.0 - 100.0 fl | REFERENCE | | | | | | LAB | | | | | | [facility] | | | | | | LABORATORY | | + + + + + + | MCH | 28.9 | 27.0 - 34.0 pg | REFERENCE | | | | | | LAB | | | | | | [facility] | | | | | | LABORATORY | | + + + + + + | MCHC | 33.0 | 32.0 - 35.5 | REFERENCE | | | | | g/dL | LAB | | | | | | [facility] | | | | | | LABORATORY | | + + + + + + | RDW-SD | 45.1 | 37 - 53 fl | REFERENCE | | | | | | LAB | | | | | | [facility] | | | | | | LABORATORY | | + + + + + + | Platelet | 408 (H) | 150 - 400 K/uL | REFERENCE | | | Count | | | LAB | | | | | | [facility] | | | | | | LABORATORY | | + + + + + + | MPV | 7.0 | fl | REFERENCE | | | | | | LAB | | | | | | [facility] | | | | | | LABORATORY | | + + + + + + | Diff Type | AUTOMATED | | REFERENCE | | | | | | LAB | | | | | | [facility] | | | | | | LABORATORY | | + + + + + + | % | 75.53 | % | REFERENCE | | | Neutrophils | | | LAB | | | | | | [facility] | | | | | | LABORATORY | | + + + + + + | % | 15.21 | % | REFERENCE | | | Lymphocytes | | | LAB | | | | | | [facility] | | | | | | LABORATORY | | + + + + + + | Monocyte % | 6.93 | % | REFERENCE | | | | | | LAB | | | | | | [facility] | | | | | | LABORATORY | | + + + + + + | Eosinophils | 1.37 | % | REFERENCE | | | % | | | LAB | | | | | | [facility] | | | | | | LABORATORY | | + + + + + + | Basophils % | 0.96 | % | REFERENCE | | | | | | LAB | | | | | | [facility] | | | | | | LABORATORY | | + + + + + + | Neutrophils | 9.14 (H) | 1.90 - 7.40 | REFERENCE | | | , Absolute | | K/uL | LAB | | | | | | [facility] | | | | | | LABORATORY | | + + + + + + | Absolute | 1.84 | 1.00 - 3.90 | REFERENCE | | | Lymphocytes | | K/uL | LAB | | | | | | [facility] | | | | | | LABORATORY | | + + + + + + | Absolute | 0.84 (H) | 0.00 - 0.80 | REFERENCE | | | Monocytes | | K/uL | LAB | | | | | | [facility] | | | | | | LABORATORY | | + + + + + + | Eosinophils | 0.17 | 0.00 - 0.50 | REFERENCE | | | , Absolute | | K/uL | LAB | | | | | | [facility] | | | | | | LABORATORY | | + + + + + + | Basophils, | 0.12 (H)Comment: Testing | 0.00 - 0.10 | REFERENCE | | | Absolute | performed at [facility];[address] | K/uL | LAB | | | | [place] | | [facility] | | | | [address];[place] [address] | | LABORATORY | | + + + + + + + + | Specimen | + + | Blood | + + + + + + + | Performing | Address | City/State/Zipcode | Phone Number | | Organization | | | | + + + + + | REFERENCE LAB | [address] [place] [address] | [place], [place] | [phone] | | [facility] | Blvd. | [address] | | | LABORATORY | | | | + + + + + | REFERENCE LAB | [address] [place] [address] | [place], [place] | | | [facility] | Blvd. | [address] | | | LABORATORY | | | | + + + + + XR Hip Bilateral 2 Views (07/08/2019 10:48 [...] | | subsidence. However this is a tshha-fw-ibufa prosthesis. Did not | | | seem to be any significant ostial lysis around either of the | | | components. There is evidence in the femur of previously removed | | | hardware. 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 The left hip shows severe dfdr-hh-rlla | | | arthritis without any evidence [...] + + | Performing | Address | City/State/[facility] | Phone Number | | Organization | [...] region and thigh | + + | H/O total hip arthroplasty, right | + + | Morbid obesity with BMI of 50.0-59.9, adult (HCC) | + + documented in this encounter
--- OUTSIDE RECORDS SUMMARY | ~2020-05-01 | XMS | Encounter Summary ---
Demographics + + + | Address | [address] | | | [place] [address] | + + + | Home Phone [...] Providers + +------+ + | Care Barrel Ribs Solderer Name | Role | Phone | + +------+ + PCP | Unavailable | + +------+ + Encounter Details +--------+ + + + + | Date | Type | Department | Care Team | Description | +--------+ + + + + | 01/16/ | Abstract | UNKNOWN DEPARTMENT | Unknown . | | | 2005 | | [address] | | | | | | [address] | | | | | | [place], [place] | | | | | | [address] | | | +--------+ + + + [...]
--- OUTSIDE RECORDS SUMMARY | ~2020-05-01 | XMS | Encounter Summary ---
Demographics + + + | Address | [address] | | | [place] [address] | + + + | Home Phone [...] Team Providers + +------+ + | Care Boxing Promoter Name | Role | Phone | + +------+ + | Travis Mcginnis MD | PCP | | + +------+ + Encounter Details +--------+ + + + + | Date | Type | Department | Care Team | Description | +--------+ + + + + | 10/14/ | Results | LAB REFERRED TESTS | Other, Faculty | | | 2010 | Only | [address] [facility] | [phone] | | | | | [address] | | | | | | [place] | | | | | | [address] | | | +--------+ + + + [...] | + +--------+ + + + | EJECTION FRACTION | Routin | 10/14/2010 | | Results for this | | | e | 9:31 AM | | procedure are in the | | | | PST | | results section. | + +--------+ + + + documented in this encounter Results EJECTION FRACTION (10/14/2010 9:31 AM PST) + + + + + + | Component | Value | Ref Range | Performed | Pathologist | | | | | At | Signature | + + + + + + | EJECTION | 60 - 65%Comment: EF | | [facility] | | | FRACTION | Recorded from | | OF | | | | Transthoracic | | CARDIOLOGY | | | | Echocardiogram | | | | + + + + + + + + | Specimen | + + | | + + + + + + + | Performing | Address | City/State/Zipcode | Phone Number | | Organization | | | | + + + + + | [facility] | [address] | [place], [place] | | | CARDIOLOGY | [address] | [address] | | + + + + + documented in this encounter Visit Diagnoses Not on filedocumented in this encounter"
--- OUTSIDE RECORDS SUMMARY | ~2020-05-01 | XMS | Encounter Summary ---
Demographics + + + | Address | [address] | | | [place] [address] | + + + | Home Phone [...] Team Providers + +------+ + | Care Switchboard Wire Worker Helper Name | Role | Phone [...] | | | | Mailcode: [id number] | [place], [place] | | | | | [facility] | [phone] | | | | | [place], [place] | [phone] | | | | | [address] | | | | | | [phone] | | | +--------+ + + + [...]
--- OUTSIDE RECORDS SUMMARY | ~2020-05-01 | XMS | Encounter Summary ---
Demographics + + + | Address | [address] | | | [place] [address] | + + + | Home Phone [...] | Casandra Smith | ROBERTO | [place] | | + + + + + Care Team Providers + +------+ + | Care Diabetes Educator Name | Role | Phone | + +------+ + | Travis Mcginnis MD | PCP | | + +------+ + Reason for Visit Office Visit - E/M Services (Routine) +--------+--------+ + + + + | Status | Reason | Specialty | Diagnoses / | Referred By | Referred To | | | | | Procedures | Contact | Contact | +--------+--------+ + + + + | Closed | | Infectious | Diagnoses | [place], | [place], | | | | Disease | Infection | Tyrone Barrientos MD | Carolina Reddy, | | | | | and | [address] | [address] | | | | | inflammatory | Pankaj Bergman | [address] Bergman | | | | | reaction | Roxann Ayala | Roxann Ayala | | | | | due to | [place] | | | | | unspecified | [address] | [address] | | | | | device, | Phone: | Phone: | | | | | implant, and | [phone] | [phone] | | | | | graft | Fax: | Fax: | | | | | | [phone] | [phone] | +--------+--------+ + + + + Encounter Details +--------+---------+ + + + | Date | Type | Department | Care Team | Description | +--------+---------+ + + + | 11/23/ | Office | Orthopaedics & | Albino Teresa, | Infection and | | 2010 | Visit | Rehabilitation at | MD [address] | inflammatory | | | | [facility] [address] | reaction due to | | | | [address] | [place] [address] | internal joint | | | | Physician's | [phone] | prosthesis (HCC) | | | | Pavilion, 4th floor | | (Primary Dx) | | | | [place], [place] | | | | | | [address] | | | | | | [phone] | | | +--------+---------+ + + + [...] + + documented as of this encounter Patient Instructions Patient Instructions Albino Teresa MD - 11/23/2010 3:29 PM PSTYou will take the cipro and rifampin for six months in the morning and evening one of each Please have your PCP take labs in 2 weeks and then monthly thereafter the side effects of Ciprofloxacin. These include the possibility of tendon rupture. Signs of tendon irritation are pain with m ovement, particularly of the achilles tendon. certain foods & medications such as calcium, magnesium, zinc, iron, multivitamin, antacids or dairy products interfere with Ciprofloxacin absorption. Do not take any of these products within 2 hours of Ciprofloxacin dosing. rifampin The side effects of the rifampin are abnormal LFT's, red urine, and red sweat. This medica tion also interacts with narcotic medication, reducing effectiveness of pain medications. Do not to drink alcohol while taking rifampin, and not to wear white shirts as these will be stained red by sweat. contact lenses may also be permanently discolored. people may develop an allergy to antibiotics at any time, even 5 weeks into therapy. This m ay manifest as a rash or renal failure, or achilles tendon problems and it is therefore imp ortant to report any new symptoms. documented in this encounter Progress Notes Albino Teresa MD - 11/24/2010 8:07 AM PSTFormatting of this note might be different fr om the original. INFECTIOUS DISEASES CLINIC FOLLOW UP Referrring Physician: TYRONE COLBY [facility] Orthopedics [address] [place] [address] Primary Care Physician: [address] [place] [address] Ms. Galdamez presents to Infectious Diseases Clinic regarding scheduled follow up. History other than "Interim History" below is directly copied from previous ID notes to maintain continuity: Shelby Galdamez is a 50 y.o. F with a PMHx of asthma, HTN, HLD, R total hip arthoplasty in 1 2/08 . At the time of her index arthroplasty, frozen section biopsies were sent, and ther e was no evidence of infection. The patient was unable to be compliant with weightbearing re strictions, and her hardware failed in the early postoperative period. This went on to be mi nimally symptomatic for her, and she did well with the arthroplasty She has had pain since the surgery in 2007 but had sudden acute worsening 2 days prior to a dmission and was unable to ambulate, but denied other symptoms including fever or chills. Jac jackson was found to have a leukocytosis in the ED up to 19 which has trended down to 12. A x-ray of the hip did not show acute osseus lesions. A IR guided tap of the R hip yielded <1cc of s erosangious fluid that did grow anything on cultures. A CXR was negative for infection, a UA had few bacteria, moderate squamous epithelial cells and was LE and nitrate negative. A TTE was obtained but showed no vegetations. A CT A&P was obtained on 10/14 which showed a new fl uid collection surrounding the right hip that was concerning for infection. She was taken to the OR for washout on 10/16/10 and found a large pocket of clear brownish v iscous fluid.The clawed cable plate was removed but the total hip arthroplasty was left in p lace. Surgical cultures now grow out MSSA (in 5 out of 7 sites inclduing the hip fluid asp irate ). Resistant only to penicillin. Sensitive to cipro and rif Jac jackson was discharge don nafcillin 2g IV q 4 hours. In clinic on 11/16 rifampin was added in Interim History The patient now presents to clinic today for follow-up/ She is doing very well. the hip wound has healed without drainage. She has had no problems with her PICC line or antibiotic s The patient has no headache, no visual changes, no oral lesions, no new skin lesions or chepe hes, no cough, no SOB, no chest pains, no diarrhea, no abdopain, no dysurea, no haematurea. There have been no fevers chills. Lab Results Component Value Date ESR 78 11/16/2010 CRP < 0.5 11/09/2010 CR 0.4 11/16/2010 Current Medications: Current outpatient prescriptions Medication Sig [...] procedure. Indications : Staphylococcus Aureus Joint Infection [place]-3 Fatty Acids-Vitamin E (FISH OIL) 1,000 mg Oral Capsule Take by mouth. omeprazole (PRILOSEC) 40 mg Oral Capsule, Delayed Release(E.C.) Take 40 mg by mouth onc e daily. rifamPIN 300 mg Oral Capsule Take 1 Cap by mouth once daily. rifamPIN 300 mg Oral Capsule Take 1 Cap by mouth two times daily. Allergies: Lipitor, Sulfa (sulfonamides) and Adhesive tape Physical Exam: The patient was sitting comfortably at rest. Looked well Non-icteric No rashes The PICC/groshong site was healthy and clean The hip is well healed, without erythema or drainage Diagnostic Tests: Lab Results Component Value Date WBC 8.6 11/16/2010 HB 11.5* 11/16/2010 HCT 33.7 11/16/2010 PLT 369 11/16/2010 MCV 87 11/16/2010 RDW 16.7 11/16/2010 Lab Results Component Value Date NA 139 11/16/2010 K 4.1 11/16/2010 CL 107 11/16/2010 BICARB 26 11/16/2010 BUN 6 11/16/2010 CR 0.4 11/16/2010 GLU 112* 11/16/2010 CA 8.6 11/16/2010 AST 15 11/16/2010 ALT 11 11/16/2010 AP 60 11/16/2010 TBILI 0.9 11/16/2010 TP 7.1 11/16/2010 ALB 3.3 11/16/2010 Assessment/Plan I had a long discussion with her: We discussed bone infection. I explained how [...] patient according to their clin ical progress. I explained that we had tried to save the hip, but it has 50:50 chance of success. the bes t chance if she is now able to take our slime busting regime or cipro and rifampin for 6 mon ths I have therefore pulled her PICC line in clinic I reviewed the side effects of Ciprofloxacin. These include dizziness, seizures, renal fail ure, and the possibility of tendon rupture. Signs of renal failure are a change in urine col or, decreased urine output, nausea or vomiting. Signs of tendon irritation are pain with mov ement, particularly of the achilles tendon. I explained that certain foods & medications suc h as calcium, magnesium, zinc, iron, multivitamin, antacids or dairy products interfere with Ciprofloxacin absorption. I recommended not taking any of these products within 2 hours of Ciprofloxacin dosing. I reviewed the fact that people may develop an allergy to antibiotics at any time, even 5 weeks into therapy. This may manifest as a rash or renal failure, or ach illes tendon problems and it is therefore important to report any new symptoms. I reviewed the side effects of rifampin. These include abnormal LFT's, red urine, and red s weat. This medication also interacts with narcotic medication, reducing effectiveness of wisam n medications. I advised the patient not to drink alcohol while taking rifampin, and not to wear white shirts as these will be stained red by sweat. I advised that contact lenses may also be permanently discolored. She will need CMP to check kidney and renal function in two weeks and then monthly thereaft er It is recommended that Ms. Galdamez follow up in Infectious Diseases Clinic in 6 months I spent 45 minutes evaluating and co-ordinating the care of the patient with the predomina nt time, over 50%, spent in councelling the patient. We had the above discussion. ALBINO TERESA MD INFECTIOUS DISEASES [address] [place] [address] [address]: [id number] [address] documented in this e ncounter Plan of Treatment Not on filedocumented as of this encounter Procedures + +--------+ + + + | Procedure Name | Priori | Date/Time | Associated Diagnosis | Comments | | | ty | | | | + +--------+ + + + | LAB REPORTS | | 01/01/2011 | | Results for this | | | | 12:00 AM | | procedure are in the | | | | PDT | | results section. | + +--------+ + + + | LAB REPORTS | | 12/06/2010 | | Results for this | | | | 12:00 AM | | procedure are in the | | | | PST | | results section. | + +--------+ + + + | LAB REPORTS | | 11/23/2010 | | Results for this | | | | 12:00 AM | | procedure are in the | | | | PST | | results section. | + +--------+ + + + documented in this encounter Results LAB REPORTS (01/01/2011 12:00 AM PDT) + + + | Narrative | Performed At | + + + | | | + + + + + | Procedure Note | + + | Other, Faculty - 01/01/2011 12:00 AM PDT | | | + + LAB REPORTS (12/06/2010 12:00 AM PST) + + + | Narrative | Performed At | + + + | | | + + + + + | Procedure Note | + + | Beatriz Beckett - 12/06/2010 12:00 AM PST | | | + + LAB REPORTS (11/23/2010 12:00 AM PST) + + + | Narrative | Performed At | + + + | | | + + + + + | Procedure Note | + + | Sophy Faculty - 11/23/2010 12:00 AM PST | | | + + documented in this encounter Visit Diagnoses + + | Diagnosis | + + | 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
--- OUTSIDE RECORDS SUMMARY | ~2020-05-01 | XMS | Encounter Summary ---
Demographics + + + | Address | [address] | | | [place] [address] | + + + | Home Phone | | + + + | Preferred Language | Unknown | + + + | Marital Status | | + + + | Yazidism Affiliation | [id number] | + + + | Race | Unknown | + + + | Ethnic Group | Unknown | + + + Author + + + | Author | [facility] | | | and [place] | + + + | Organization | [facility] | | [...] Team Providers + +------+ + | Care Meal Grinder Tender Name | Role | Phone | + +------+ + PCP | Unavailable | + +------+ + Encounter Details +--------+ + + + + | Date | Type | Department | Care Team | Description | +--------+ + + + + | 09/14/ | Hospital | [facility] | Unknown, | | | 1991 | Encounter | MED CTR XRAY [address] | MD [address] . | | | | | [place] | | | | | | [place] [address] | (Fax) | | | | | [phone] | | | +--------+ + + + [...] [place] | | | | | | [address] | | | | | | | | +--------+---------+ + + + documented as of this encounter Visit Diagnoses Not on filedocumented in this encounter"
--- OUTSIDE RECORDS SUMMARY | ~2020-05-01 | XMS | Encounter Summary ---
Demographics + + + | Address | [address] | | | [place] [address] | + + + | Home Phone [...] Team Providers + +------+ + | Care Dip Stand Loader Name | Role | Phone | + [...] 03/15/ | Telephone | Orthopaedics at | Kalayn Arias MD | Medication requested | | 2009 | | [facility] [address] | [address] | | | | | [address] | [facility] | | | | | Mailcode: [id number] | [place], [place] | | | | | [facility] | [address] | | | | | [place], [place] | [phone] | | | | | [address] | | | | | | [phone] | | | +--------+ + + + [...]
--- OUTSIDE RECORDS SUMMARY | ~2020-05-01 | XMS | Encounter Summary ---
Demographics + + + | Address | [address] | | | [place] [address] | + + + | Home Phone [...] Team Providers + +------+ + | Care Recruiting Operations Consultant Name | Role | Phone | [...] | | Procedures | Rd | [place], | | | | | CONSULT TO | [place], [place] | [place] [address] | | | | | ORTHOPEDICS | [address] | | | | | | AND [...] | | [address] | Roxann Ayala [place], | | | | | Mailcode: [id number] | [place] [address] | | | | | [facility] | | | | | | [place], [place] | | | | | | [address] | | | | | | [phone] | | | +--------+---------+ + + + [...] as of this encounter Progress Notes Interface, Directional Driller In - 10/05/2006 2:33 AM PST [id number] CHAD Osei [id number] Clinic Date: 10/02/2006 Clinic: Orthopaedics Shelby Galdamez [...] Dr. Acevedo. Gino Baker M.D. KEE / SLAEEM [id number] / [id number] / [id number] / [id number] cc: Quintin [place] Electronically signed by Gino [...]
--- OUTSIDE RECORDS SUMMARY | ~2020-05-01 | XMS | Encounter Summary ---
Demographics + + + | Address | [address] | | | [place] [address] | + + + | Home Phone [...] Team Providers + +------+ + | Care Plugger Man Name | Role | Phone | [...] | | | | | (sacroiliac) | [facility], | | | | | joint | Rd | 10th Floor | | | | | inflammation | [place], [place] | [place], [place] | | | | | ([facility]) | [address] | [address] | | | | | Procedures | | Phone: | | | | | CT INJ | | [phone] | | | | | SACROILIAC | | Fax: | | | | | JOINT | | [phone] | | | | | [address] | [...] | | | | | | Rd [place], | | | | | | | [place] | | | | | | | [address] | | | | | | | Phone: | | | | | | | [phone] | | | | | | | Fax: | | | | | | | [phone] | +--------+--------+ + + + + Encounter [...] | | | | Mailcode: [id number] | [place], [place] | ([facility]) | | | | [facility] | [address] | | | | | [place], [place] | [phone] | | | | | [address] | | | | | | [phone] | | | +--------+---------+ + + + [...] and plan of care. TYRONE COLBY MD [facility] [address] [facility] Mailcode: [id number] [facility] [phone] esfaye Saenz PA-C - 02/20/2010 3:15 PM [...] None. | | | | | | Clinical Courier: Dr. Moss, | | | | | | president college or university. | | | | | | Chiropractor Assistant: | | | | | | [...] the | | | | | | support teacher. Bpm Architect | | | | | | imaging [...]
--- OUTSIDE RECORDS SUMMARY | ~2020-05-01 | XMS | Encounter Summary ---
Demographics + + + | Address | [address] | | | [place] [address] | + + + | Home Phone [...] Providers + +------+ + | Care Manager Marketing Sales Name | Role | Phone | [...] Pavilion | | | | | | [place], [place] | | | | | | [address] | | | | | | [phone] | | | +--------+ + + + [...]
--- OUTSIDE RECORDS SUMMARY | ~2020-05-01 | XMS | Encounter Summary ---
Demographics + + + | Address | [address] | | | [place] [address] | + + + | Home Phone [...] Team Providers + +------+ + | Care Proof Inspector Name | Role | Phone | + +------+ + PCP | Unavailable | + +------+ + Encounter Details +--------+ + + + + | Date | Type | Department | Care Team | Description | +--------+ + + + + | 09/16/ | Office | [facility] | Note, [...] as of this encounter Progress Notes Interface, Scientific Affairs Manager In - 06/23/2006 1:07 AM PDTCLINIC DATE: 09/16/2001 ORTHOPEDIC CLINIC HISTORY: Ms. Galdamez is a 41-year-old female who is being followed for low back pain, right hip pain, and right knee pain. Her back pain has been attributed to spondylosis, and her right hip and knee pain have been attributed to osteoarthritis. In April 2001, she underwent a right hip arthrogram which revealed osteophytes on the femoral head and some asymmetric narrowing of the acetabular cartilage and femoral head cartilage. At the same time, she received an injection of local anesthetic and steroids. This markedly improved her pain for about a month and then her right hip pain returned. She has been using the cane for ambulation and has been using Vicodin on and off as well as anti-inflammatories intermittently. She has not been working. Currently, her right knee is painful but not as bothersome as her right hip and low back which are equally bothersome for her. PHYSICAL EXAMINATION: GENERAL: She is well appearing and obese. EXTREMITIES: Her right hip has range of motion from 0 to 120 degrees. Internal rotation is 20 degrees and external rotation is 30 degrees. There is 30 degrees of abduction. This is a comparison to left hip which has 0 to 130 degrees of flexion, 60 degrees of external rotation, 30 degrees of internal rotation, and 60 degrees of abduction. Distally in the leg, she is neurovascularly intact. DIAGNOSTIC DATA: No x-rays were obtained today. ASSESSMENT AND PLAN: Ms. Galdamez is a 41-year-old obese female with right hip osteoarthritis. Her arthrogram and x-rays from previous visits were reviewed today. She is appearing to have failed conservative treatment with respect to her right hip pain. As she was seen today with Dr. Garcia, options at this point were discussed to include further physical therapy, weight loss, anti-inflammatories, etc. versus total hip replacement, and the patient seems to be quiet interested in having a total hip replacement. Dr. Garcia would like to send her to Dr. Wu regarding a second opnion for total hip arthroplasty. We will prescribe her with some indomethacin to continue to take as needed, and we will see her after she has seen Dr. Wu. Ken Mejia M.D. Lloyd Garcia M.D. / [id number] / [id number] / [id number] / Tdocumented in this encounter Plan of Treatment Not on filedocumented as of this encounter Visit Diagnoses Not on filedocumented in this encounter"
--- OUTSIDE RECORDS SUMMARY | ~2020-05-01 | XMS | Encounter Summary ---
Demographics + + + | Address | [address] | | | [place] [address] | + + + | Home Phone [...] Providers + +------+ + | Care Hand Printed Circuit Board Assembler Name | Role | Phone | [...] as of this encounter Progress Notes Interface, Plaster Mechanic In - 08/03/2006 5:18 AM PSTCLINIC DATE: [...] hip at that time. Lloyd Garcia M.D. Edi Programmer Analyst of Orthopedics and Rehabilitation / [id number] / [id number] / [id number] / [id number] cc: Helio Noland M.D. P.OJuan Jose Howard [facility] [address] [place], [place] [id number] signed by Interface, Plaster Mechanic In at 08/03/2006 5: 18 AM PSTdocumented in this encounter Plan of Treatment Not on filedocumented as of this encounter Visit Diagnoses Not on filedocumented in this encounter"
--- OUTSIDE RECORDS SUMMARY | ~2020-05-01 | XMS | Encounter Summary ---
Demographics + + + | Address | [address] | | | [place] [address] | + + + | Home Phone [...] Team Providers + +------+ + | Care Marine Engineer Name | Role | Phone | [...] Closed | | Radiology | Diagnoses | [place] | To[address] Ct Scan | | | | | Hip pain | Kalyan Barrientos MD | [address] | | | | | Back pain | [address] | [address] | | | | | Procedures | [address] | Roxann Ayala [facility] | | | | | CT INJ | Roxann Ayala [facility], | | | | | SACROILIAC | [place], [place] | 10th Floor | | | | | JOINT | [address] | [place], [place] | | | | | [address] | Phone: | [phone] | | | | | PLCMT | [phone] | Phone: | | | | | | Fax: | [phone] | | | | | | [phone] | Fax: | | | | | | | [phone] | +--------+--------+ + + + + Encounter Details +--------+ + + + + | Date | Type | Department | Care Team | Description | +--------+ + + + + | 10/12/ | Hospital | Diagnostic Imaging | | | | 2009 | Encounter | Services at [facility] | | | | | | [address] | | | | | | Roxann Ayala [facility] | | | | | | [address] | | | | | | [place], [place] | | | | | | [address] | | | | | | [phone] | | | +--------+ + + + [...] | CT INJ SACROILIAC | Routin | 10/12/2009 | Hip pain Back | Results for this | | JOINT AND NEEDLE | e | 10:08 AM | pain | procedure are in the | | PLCMT | | PST | | results section. | + +--------+ + + + documented in this encounter Results PROCEDURE NOTE (11/04/2015 11:22 AM PST)CT INJ SACROILIAC JOINT W/NEEDLE PLCMT (10/12/2009 10:08 AM PST) + + + + + [...] | | | | | | the technical support specialist. | | | | | | Associate Manager Affiliate Marketing imaging was | | | | | [...] joint. | | | | | | Ron,radiology | | | | | | resident, [...] DIOR, | | | | | | M.HeriReviewer: MARIAJOSE HILL, | | | | | | M.DJuan Jose STATUS FINAL / | | | | [...]
--- OUTSIDE RECORDS SUMMARY | ~2020-05-01 | XMS | Encounter Summary ---
Demographics + + + | Address | [address] | | | [place] [address] | + + + | Home Phone [...] Team Providers + +------+ + | Care Black Top Paver Operator Name | Role | Phone | [...] as of this encounter Progress Notes Interface, Core Cutter In - 04/28/2005 6:17 PM PDTClinic Date: [...] see us. She instead went to the [facility] emergency department, where she was seen and [...] a chance to get back home to [place]. We will call her tomorrow and reiterate how important it is that we take care of this fluid collection in her hip and try to get her better. Dori Wong. Lloyd Garcia M.D. Attending Physician /jamil P [id number] signed by Interface, Core Cutter In at 04/28/2005 6:17 PM PDTdoc umented in this encounter Plan of Treatment Not on filedocumented as of this encounter Visit Diagnoses Not on filedocumented in this encounter"
--- OUTSIDE RECORDS SUMMARY | ~2020-05-01 | XMS | Encounter Summary ---
Demographics + + + | Address | [address] | | | [place] [address] | + + + | Home Phone [...] Team Providers + +------+ + | Care Cattle Producers Name | Role | Phone | + +------+ + | Marta Jenkins SENIOR MECHANICAL TECHNICIAN | PCP | | + +------+ + [...] [address] | | | | | [place], [place] | [place], [place] | | | | | [address] | [address] | | | | | [phone] | [phone] | | | | | | | [...]
--- OUTSIDE RECORDS SUMMARY | ~2020-05-01 | XMS | Encounter Summary ---
Demographics + + + | Address | [address] | | | [place] [address] | + + + | Home Phone [...] Providers + +------+ + | Care Iron Melter Name | Role | Phone | + +------+ + | No Pcp Per Patient | PCP | Unavailable | + +------+ + Encounter Details +--------+ + + + + | Date | Type | Department | Care Team | Description | +--------+ + + + + | 09/15/ | Hospital | Radiation Oncology | | | | 2007 | Encounter | at [facility] [address] | | | | | [address] | | | | | | [address] | | | | | | [place], [place] | | | | | | [address] | | | | | | [phone] | | | +--------+ + + + [...]
--- OUTSIDE RECORDS SUMMARY | ~2020-05-01 | XMS | Encounter Summary ---
Demographics + + + | Address | [address] | | | [place] [address] | + + + | Home Phone [...] Team Providers + +------+ + | Care Cath Lab Technologist Name | Role | Phone | + [...] | | [address] | Roxann Ayala [place], | | | | | Mailcode: [id number] | [place] [address] | | | | | [facility] | | | | | | [place], [place] | | | | | | [address] | | | | | | [phone] | | | +--------+ + + + [...]
--- OUTSIDE RECORDS SUMMARY | ~2020-05-01 | XMS | Encounter Summary ---
Demographics + + + | Address | [address] | | | [place] [address] | + + + | Home Phone [...] Team Providers + +------+ + | Care Automobile Painter Name | Role | Phone | + [...] as of this encounter Progress Notes Interface, Assistant Site Manager In - 04/28/2005 7:30 PM PDTClinic Date: [...] signs of recurrent infection. Lloyd Garcia M.D. Restaurant Crew [facility] / [id number] / [id number] / [id number] / [id number] cc: Ninfa Guillen M.D. [address] [place], [place] [address]Hzyuxpsyhollqc signed by Interface, Assistant Site Manager In at 04/28/2005 7:3 0 PM PDTdocumented in this encounter Plan of Treatment Not on filedocumented as of this encounter Visit Diagnoses Not on filedocumented in this encounter"
--- OUTSIDE RECORDS SUMMARY | ~2020-05-01 | XMS | Encounter Summary ---
Demographics + + + | Address | [address] | | | [place] [address] | + + + | Home Phone [...] Providers + +------+ + | Care Supervisor Telephone Information Name | Role | Phone | + [...] [address] | | | | | | [place], [place] | | | | | | [address] | | | | | | [phone] | | | +--------+---------+ + + + [...] fairly well controlled at this point with Purcell. She has been wbat and is overall [...]
--- OUTSIDE RECORDS SUMMARY | ~2020-05-01 | XMS | Encounter Summary ---
Demographics + + + | Address | [address] | | | [place] [address] | + + + | Home Phone [...] + +------+ + | Care Director Of Accreditation Name | Role | Phone | + [...] as of this encounter Progress Notes Interface, Brokerage Office Manager In - 06/11/2006 3:03 AM PDTCLINIC DATE: [...] clinic today. It was done in a [place] [facility] on December 08, 2001. There is mild [...] on an as-needed basis. Vince Krishna M.D. [facility] / [id number] / [id number] / [id number] / cc: Ninfa Guillen M.D. [address] [place] [id number] Kalyan Wu M.D. [facility] Orth[facility]ics [facility] Rehabilitation Lloyd Garcia M.D. [facility] Orthopedics and RehabiliationElectronically signed by Interface, Brokerage Office Manager In at 0 06/11/2006 3:03 AM PDTdocumented in this encounter Plan of Treatment Not on filedocumented as of this encounter Visit Diagnoses Not on filedocumented in this encounter"
--- OUTSIDE RECORDS SUMMARY | ~2020-05-01 | XMS | Encounter Summary ---
Demographics + + + | Address | [address] | | | [place] [address] | + + + | Home Phone [...] Team Providers + +------+ + | Care Racehorse Trainer Name | Role | Phone | + +------+ + PCP | Unavailable | + +------+ + Encounter Details +--------+ + + + + | Date | Type | Department | Care Team | Description | +--------+ + + + + | 04/18/ | Results | Orthopaedics at | Lloyd Garcia MD | | | 1999 | Only | [facility] [address] | | | | | | [address] | | | | | | Mailcode: PV430 | | | | | | [facility] | | | | | | [place], [place] | | | | | | [address] | | | | | | [phone] | | | +--------+ + + + [...] | | | | 06/29/99 at 1432 hours. | | | | | | Dictated: 06/29/99 | | | | | | [...] | | | | | | relief. PROCEDURE: | | | | | | Ruddy obtained informed | | | | | | consent from the | | | | | | patient. Theprocedure | | | | | | was performed by | | | | | | Nguyen and Dr. Fox. | | | | | | The anteriorright hip | | | | | | was prepped and draped | | | | | | in the usual sterile | | | | [...] | | | | hipjoint capsule. 2 cc | | | | | | of Hypaque 60 and 2 cc | | | | | | of Celestone | | | | | [...] | | | | | 2 mm overlap. | | | | | | Reformatted | | | | | | sagittaland coronal | | | | | | images were performed. | | | | | | FINDINGS: The economic forecaster | | | | | | radiographs [...] | | | | No filling defects, | | | | | | such as loose bodies, | | | | | | were seen. TheCT | | | | | [...] | | | | | axial femoral head. | | | | | | There is complete | | | | | | absenceof articular | | | | | | cartilage of the | | | | | | anterior acetabulum. | | | | | | IMPRESSION: 1. Severe | | | | | [...] | | + +---------+ + + | [facility] DEPARTMENT OF | | | [...] | | | | 06/29/99 at 1432 hours. | | | | | | Dictated: 06/29/99 | | | | | | [...] | | | | | | relief. PROCEDURE: | | | | | | Ruddy obtained informed | | | | | | consent from the | | | | | | patient. Theprocedure | | | | | | was performed by | | | | | | Nguyen and Dr. Fox. | | | | | | The anteriorright hip | | | | | | was prepped and draped | | | | | | in the usual sterile | | | | [...] | | | | hipjoint capsule. 2 cc | | | | | | of Hypaque 60 and 2 cc | | | | | | of Celestone | | | | | [...] | | | | | 2 mm overlap. | | | | | | Reformatted | | | | | | sagittaland coronal | | | | | | images were performed. | | | | | | FINDINGS: The economic forecaster | | | | | | radiographs [...] | | | | No filling defects, | | | | | | such as loose bodies, | | | | | | were seen. TheCT | | | | | [...] | | | | | axial femoral head. | | | | | | There is complete | | | | | | absenceof articular | | | | | | cartilage of the | | | | | | anterior acetabulum. | | | | | | IMPRESSION: 1. Severe | | | | | [...] ROBERTS, | | | | | | MalcomPELVIS, AP: 04/18/99 | | | | | | at 0920 hours. | | | | | | Dictated on 05/09/99 | | | | | | FINDINGS: There is | | | | | | moderate axial and | | | | | | medial narrowing of the | | | | | | righthip with | | | | | | osteophytic ridge around | | | | | | the margin of the | | | | | | femoral head. Theleft | | | | | | hip, sacroiliac joints, | | | | | | symphysis pubis, are | | | | | | within normallimits. | | | | | | No fracture, | | | | | | dislocation, or | | | | | | destructive bone lesion | | | | | | is seen. RIGHT HIP, AP | | | | | | AND FROGLEG: FINDINGS: | | | | | | Again seen is moderate | | | | | | axial and medial | | | | | | narrowing of theright | | | | | | hip with osteophytic | | | | | | ridge around the femoral | | | | | | head. IMPRESSION: | | | | | | Medial osteoarthritis of | | | | | | the right hip. END | | | | | | OF IMPRESSION: END OF | | | | [...] | | | + +---------+ + + YARON, 2 VIEWS (04/18/1999 9:20 AM PDT) + + + + + + | Component | Value | Ref Range | Performed | Pathologist | | | | | At | Signature | + + + + + + | HIP, 2 | Radiologist 1: ARMANDO | | | | | VIEWS | Malcom ALVAREZ-Radiologist | | | | | | 2: KIM ROBERTS, | | | | | | MalcomPELVIS, AP: 04/18/99 | | | | | | at 0920 hours. | | | | | | Dictated on 05/09/99 | | | | | | FINDINGS: There is | | | | | | moderate axial and | | | | | | medial narrowing of the | | | | | | righthip with | | | | | | osteophytic ridge around | | | | | | the margin of the | | | | | | femoral head. Theleft | | | | | | hip, sacroiliac joints, | | | | | | symphysis pubis, are | | | | | | within normallimits. | | | | | | No fracture, | | | | | | dislocation, or | | | | | | destructive bone lesion | | | | | | is seen. RIGHT HIP, AP | | | | | | AND FROGLEG: FINDINGS: | | | | | | Again seen is moderate | | | | | | axial and medial | | | | | | narrowing of theright | | | | | | hip with osteophytic | | | | | | ridge around the femoral | | | | | | head. IMPRESSION: | | | | | | Medial osteoarthritis of | | | | | | the right hip. END | | | | | | OF IMPRESSION: END OF | | | | | | IMPRESSION: | | | | + + + + + + + + | Specimen | + + | | + + + +---------+ + + | Performing | Address | City/State/Zipcode | Phone Number | | Organization | | | | + +---------+ + + | [facility] DEPARTMENT OF | | | | | RADIOLOGY | | | | + +---------+ + + documented in this encounter Visit Diagnoses Not on filedocumented in this encounter"
--- OUTSIDE RECORDS SUMMARY | ~2020-05-01 | XMS | Encounter Summary ---
Demographics + + + | Address | [address] | | | [place] [address] | + + + | Home Phone [...] Team Providers + +------+ + | Care Summer Camp Counselor Name | Role | Phone | + [...] as of this encounter Progress Notes Interface, Distribution Superintendent In - 07/28/2006 5:01 AM PSTCLINIC DATE: [...] from earlier surgical intervention. Lloyd Garcia M.D. Fleet Manager/Dispatch [facility] / [id number] / [id number] / [id number] / cc: Helio Noland M.D. [address] [place], [place] [id number] signed by Interface, Distribution Superintendent In at 07/28/2006 5: 01 AM PSTInterface, Distribution Superintendent In - 07/28/2006 5:01 AM PSTCLINIC DATE: [...] weeks' time. Malcom Her M.D. / SALEEM [id number] / [id number] / [id number] / [id number] Tdocumented in this encounter Plan of Treatment Not on filedocumented as of this encounter Visit Diagnoses Not on filedocumented in this encounter"
--- OUTSIDE RECORDS SUMMARY | ~2020-05-01 | XMS | Encounter Summary ---
Demographics + + + | Address | [address] | | | [place] [address] | + + + | Home Phone [...] Team Providers + +------+ + | Care Issuing Operator Name | Role | Phone | [...] Pavilion | | | | | | [place], [place] | | | | | | [address] | | | | | | [phone] | | | +--------+ + + + [...] | + + + + + | [facility] | [address] | [place] [address] | | | LABORATORY | | | [...] | + + + + + | [facility] DEPARTMENT | [address] [facility] | [place] [address] | | | PATHOLOGY | [address] | | | + + + + + | [facility] DEPARTMENT | [address] [place] [address] | [place] [address] | | | PATHOLOGY | [address] [...] | + + + + + | [facility] DEPARTMENT OF | [address] | [place] [address] | | | PATHOLOGY | [address] | | | + + + + + | [facility] DEPARTMENT OF | [address] | [place] [address] | | | PATHOLOGY | [address] [...] - [place] | [address] | [place] [address] | | | PATHOLOGY | [address] | | | + + + + + | [facility] | [address] | [place] [address] | | | PATHOLOGY | [address] [...]
--- OUTSIDE RECORDS SUMMARY | ~2020-05-01 | XMS | Encounter Summary ---
Demographics + + + | Address | [address] | | | [place] [address] | + + + | Home Phone [...] + + + | Casandra Smith | [address] | [place] | | + + [...] | | 2003 | Only | [facility] [address] MD,PhD [address] | | | | | [address] | [address] | | | | | Mailcode: [id number] | [place], [place] | | | | | [facility] | [address] | | | | | [place], [place] | [phone] | | | | | [address] | | | | | | [phone] | | | +--------+ + + + [...] | | + +---------+ + + | [facility] DEPARTMENT OF | | | | | [...] | | + +---------+ + + | [facility] DEPARTMENT OF | | | | | RADIOLOGY | | | | + +---------+ + + documented in this encounter Visit Diagnoses Not on filedocumented in this encounter"
--- OUTSIDE RECORDS SUMMARY | ~2020-05-01 | XMS | Encounter Summary ---
Demographics + + + | Address | [address] | | | [place] [address] | + + + | Home Phone [...] Team Providers + +------+ + | Care Filling Hauler Weaving Name | Role | Phone | + [...] Pavilion | | | | | | [place], [place] | | | | | | [address] | | | | | | [phone] | | | +--------+ + + + [...] | + +---------+ + + | [facility] DEPARTMENT OF | | | | | RADIOLOGY | | | | + +---------+ + + documented in this encounter Visit Diagnoses Not on filedocumented in this encounter"
--- OUTSIDE RECORDS SUMMARY | ~2020-05-01 | XMS | Encounter Summary ---
Demographics + + + | Address | [address] | | | [place] [address] | + + + | Home Phone [...] Providers + +------+ + | Care Delivery Consultant Name | Role | Phone | [...] + + + + | 10/24/ | Summons Server | Infectious | Carolina Putnam | | | 2010 | | [facility] at [facility] | K, PAXavierC [address] | | | | | [address] | [address] | | | | | [address] [facility] | [place], [place] | | | | | [address], [address] floor | [address] | | | | | [place], [place] | [phone] | | | | | [address] | | | | | | [phone] | | | +--------+ + + + [...]
--- OUTSIDE RECORDS SUMMARY | ~2020-05-01 | XMS | Encounter Summary ---
Demographics + + + | Address | [address] | | | [place] [address] | + + + | Home Phone [...] Team Providers + +------+ + | Care Online Content Coordinator Name | Role | Phone | [...] + + + + | 10/24/ | Communications Administrator | Infectious | Carolina Putnam | | | 2010 | | [facility] at [facility] | K, PAXavierC [address] | | | | | [address] | [address] | | | | | Loop Phys[facility] | [place], [place] | | | | | [address], [address] floor | [address] | | | | | [place], [place] | [phone] | | | | | [address] | | | | | | [phone] | | | +--------+ + + + [...]
--- OUTSIDE RECORDS SUMMARY | ~2020-05-01 | XMS | Encounter Summary ---
Demographics + + + | Address | [address] | | | [place] [address] | + + + | Home Phone [...] Team Providers + +------+ + | Care Design Technology Professor Name | Role | Phone | + +------+ + | Travis Mcginnis MD | PCP | | + +------+ + Encounter Details +--------+ + + + + | Date | Type | Department | Care Team | Description | +--------+ + + + + | 11/06/ | Abstract | Infectious | Carolina Putnam | | | 2010 | | [facility] at [facility] | MEGAN Reddy [address] | | | | | [address] | [address] | | | | | Loop Physician[address] | [place], [place] | | | | | [address], [address] floor | [address] | | | | | [place], [place] | [phone] | | | | | [address] | | | | | | [phone] | | | +--------+ + + + [...] + | CBC, WITH | Routin | 11/06/2010 | | Results for this | | DIFFERENTIAL | e | 12:25 PM | | procedure are in the | | | | PST | | results section. | + +--------+ + + + | COMPLETE METABOLIC | Routin | 11/06/2010 | | Results for this | | SET | e | 12:25 PM | | procedure are in the | | (NA,K,CL,CO2,BUN,CRE | | PST | | results section. | | AT,GLUC,CA,AST,ALT,B | | | | | | BRISEYDA TOTAL,ALK | | | | | | PHOS,ALB,PROT TOTAL) | | | | | + +--------+ + + + documented in this encounter Results COMPLETE METABOLIC SET (NA,K,CL,CO2,BUN,CREAT,GLUC,CA,AST,ALT,BILI TOTAL,ALK PHOS,ALB,PROT TOTAL) (11/06/2010 12:25 PM PST) + +-------+ + + + | Component | Value | Ref Range | Performed | Pathologist | | | | | At | Signature | + +-------+ + + + | GLUCOSE, | 110 | 65 - 110 mg/dL | [facility] | | | PLASMA | | | GENERAL | | | (LAB) | | | [facility] | | + +-------+ + + + | BUN, PLASMA | 10 | mg/dL | [facility] | | | (LAB) | | | GENERAL | | | | | | [facility] | | + +-------+ + + + | CREATININE | 0.6 | mg/dL | [facility] | | | PLASMA | | | GENERAL | | | (LAB) | | | [facility] | | + +-------+ + + + | TOTAL | 7.9 | g/dL | [facility] | | | PROTEIN, | | | GENERAL | | | PLASMA | | | HOSPITAL | | | (LAB) | | | | | + +-------+ + + + | ALBUMIN, | 3.4 | g/dL | [facility] | | | PLASMA | | | GENERAL | | | (LAB) | | | [facility] | | + +-------+ + + + | CALCIUM, | 8.9 | mg/dL | [facility] | | | PLASMA | | | GENERAL | | | (LAB) | | | [facility] | | + +-------+ + + + | BILIRUBIN | 0.9 | Transcutaneous | [facility] | | | TOTAL | | Bilirubinometer | GENERAL | | | | | | HOSPITAL | | + +-------+ + + + | ALK PHOS | 67 | U/L | [facility] | | | | | | GENERAL | | | | | | [facility] | | + +-------+ + + + | AST(SGOT) | 17 | U/L | [facility] | | | | | | GENERAL | | | | | | [facility] | | + +-------+ + + + | SODIUM, | 137 | mmol/L | [facility] | | | PLASMA | | | GENERAL | | | (LAB) | | | [facility]OS[facility] | | + +-------+ + + + | POTASSIUM, | 3.9 | mmol/L | [facility] | | | PLASMA | | | GENERAL | | | (LAB) | | | [facility]OS[facility] | | + +-------+ + + + | CHLORIDE, | 102 | mmol/L | [facility] | | | PLASMA | | | GENERAL | | | (LAB) | | | [facility] | | + +-------+ + + + | TOTAL CO2, | 28 | mmol/L | [facility] | | | PLASMA | | | GENERAL | | | (LAB) | | | [facility] | | + +-------+ + + + | ALT (SGPT) | 15 | U/L | [facility] | | | | | | GENERAL | | | | | | [facility] | | + +-------+ + + + | ANION GAP | 11 | | [facility] | | | | | | GENER[facility] | | | | | | [facility] | | + +-------+ + + + | OSMOLALITY, | 284 | | [facility] | | | CALCULATED | | | GENER[facility] | | | | | | [facility] | | + +-------+ + + + + + | Specimen | + + | Blood - Blood | + + + + + + + | Performing | Address | City/State/Zipcode | Phone Number | | Organization | | | | + + + + + | [facility] | [address] | [place] | [phone] | | [facility] | | [address] | | + + + + + | [facility] | [address] | [place] | | | [facility] | | [address] | | + + + + + CBC, WITH DIFFERENTIAL (11/06/2010 12:25 PM PST) + + + + + + | Component | Value | Ref Range | Performed | Pathologist | | | | | At | Signature | + + + + + + | WHITE CELL | 9.6 | K/cu mm | [facility] | | | COUNT | | | GENERAL | | | | | | [facility] | | + + + + + + | RED CELL | 4.09 | M/cu mm | [facility] | | | COUNT | | | GENERAL | | | | | | [facility] | | + + + + + + | HEMOGLOBIN | 12.1 (A) | 12.1999 - 15 | [facility] | | | | | g/dL | GENERAL | | | | | | [facility]OS[facility] | | + + + + + + | HEMATOCRIT | 35.2 | % | [facility] | | | | | | GENER[facility] | | | | | | [facility] | | + + + + + + | MCV | 86 | fL | [facility] | | | | | | [facility] | | | | | | [facility] | | + + + + + + | MCH | 29.5 | pg | [facility] | | | | | | [facility] | | | | | | [facility] | | + + + + + + | MCHC | 34.3 | g/dL | [facility] | | | | | | [facility] | | | | | | [facility] | | + + + + + + | PLATELET | 551 | K/cu mm | [facility] | | | COUNT | | | GENERAL | | | | | | [facility] | | + + + + + + | NEUTROPHIL | 64.3 | % | [facility] | | | % | | | GENER[facility] | | | | | | [facility] | | + + + + + + | LYMPHOCYTE | 25.2 | % | [facility] | | | % | | | GENER[facility] | | | | | | [facility] | | + + + + + + | MONOCYTE % | 8.1 | % | [facility] | | | | | | GENER[facility] | | | | | | [facility] | | + + + + + + | EOS % | 2.1 | % | [facility] | | | | | | GENER[facility] | | | | | | [facility] | | + + + + + + | BASO % | 0.3 | % | [facility] | | | | | | [facility] | | | | | | [facility] | | + + + + + + | RDW | 15.8 | % | [facility] | | | | | | GENER[facility] | | | | | | [facility] | | + + + + + + | MPV | | fL | [facility] | | | | | | [facility] | | | | | | [facility] | | + + + + + + | NEUTROPHIL | 6.2 | K/cu mm | [facility] | | | # | | | GENER[facility] | | | | | | [facility] | | + + + + + + | LYMPHOCYTE | 2.4 | K/cu mm | [facility] | | | # | | | GENER[facility] | | | | | | [facility] | | + + + + + + | MONOCYTE # | 0.8 | K/cu mm | [facility] | | | | | | [facility] | | | | | | [facility] | | + + + + + + | EOS # | 0.2 | K/cu mm | [facility] | | | | | | [facility] | | | | | | [facility] | | + + + + + + | BASO # | 0.0 | | [facility] | | | | | | [facility] | | | | | | [facility] | | + + + + + + | SEDIMENTATI | 82 | mm/hr | [facility] | | | ON RATE | | | GENERAL | | | | | | [facility] | | + + + + + + + + | Specimen | + + | Blood - Blood | + + + + + + + | Performing | Address | City/State/Zipcode | Phone Number | | Organization | | | | + + + + + | [facility] | [address] | [place] | [phone] | | [facility] | | [address] | | + + + + + | [facility] | [address] | [place] | | | [facility] | | [address] | | + + + + + documented in this encounter Visit Diagnoses Not on filedocumented in this encounter"
--- OUTSIDE RECORDS SUMMARY | ~2020-05-01 | XMS | Encounter Summary ---
Demographics + + + | Address | [address] | | | [place] [address] | + + + | Home Phone [...] + +------+ + | Care Director Of Undergraduate Admissions Name | Role | Phone | + [...] | | | | Mailcode: PV430 | [place], [place] | not done yet | | | | [facility] | [address] | 07-18.) | | | | [place], [place] | [phone] | | | | | [address] | | | | | | [phone] | | | +--------+ + + + [...]
--- OUTSIDE RECORDS SUMMARY | ~2020-05-01 | XMS | Encounter Summary ---
Demographics + + + | Address | [address] | | | [place] [address] | + + + | Home Phone [...] Team Providers + +------+ + | Care Behavioral Interventionist Name | Role | Phone | + +------+ + | Marta Jenkins MAKEUP SALES ADVISOR | PCP | | + +------+ + [...] | Jamie Mailcode: [address] [place], | | | | | [place], [place] | [place] [address] | | | | | [address] | | | | | | [phone] | | | +--------+ + + + [...]
--- OUTSIDE RECORDS SUMMARY | ~2020-05-01 | XMS | Encounter Summary ---
Demographics + + + | Address | [address] | | | [place] [address] | + + + | Home Phone [...] Providers + +------+ + | Care Product Development Carpenter Name | Role | Phone | [...] | | | | Mailcode: PV430 | [place], [place] | | | | | [facility] | [address] | | | | | [place], [place] | [phone] | | | | | [address] | | | | | | [phone] | | | +--------+ + + + [...]
--- OUTSIDE RECORDS SUMMARY | ~2020-05-01 | XMS | Encounter Summary ---
Demographics + + + | Address | [address] | | | [place] [address] | + + + | Home Phone [...] Team Providers + +------+ + | Care Svp Research And Strategic Analysis Name | Role | Phone | + +------+ + | Marta Jenkins HOT WORKER | PCP | | + +------+ [...] | Jamie Mailcode: [address] [place], | | | | | [place], [place] | [place] [address] | | | | | [address] | | | | | | [phone] | | | +--------+ + + + [...]
--- OUTSIDE RECORDS SUMMARY | ~2020-05-01 | XMS | Encounter Summary ---
Demographics + + + | Address | [address] | | | [place] [address] | + + + | Home Phone [...] Providers + +------+ + | Care Shipping Helper Name | Role | Phone | [...] of this encounter Progress Notes Interface, Manager Alliance In - 07/22/2006 3:18 AM PDTCLINIC DATE: [...] of the right knee. Lloyd Garcia M.D. information systems professor, Orthopedics and Rehabilitation. BIRGIT / SALEEM [id number] / [id number] / [id number] / [id number] cc: JILLIAN TODD MD [address] [facility] [id number] signed by Interface, Manager Alliance In at 07/22/2006 3:1 8 AM PDTdocumented in this encounter Plan of Treatment Not on filedocumented as of this encounter Visit Diagnoses Not on filedocumented in this encounter"
--- OUTSIDE RECORDS SUMMARY | ~2020-05-01 | XMS | Encounter Summary ---
Demographics + + + | Address | [address] | | | [place] [address] | + + + | Home Phone | | + + + | Preferred Language | Unknown | + + + | Marital Status | | + + + | Presybeterian Affiliation | 1076 | + + + | Race | Unknown | + + + | Ethnic Group | Unknown | + + + Author + + + | Author | [facility] | | | and [place] | + + + | Organization | [facility] | | [...] Team Providers + +------+ + | Care Spider Assembler Name | Role | Phone | [...] + | 03/08/ | Telephone | [facility] | Ladarius Martínez PA | Other | | 2016 | | SLEEP DISORDER [address] | [address] | | | | | [address] [place] | [place], [place] | | | | | [place] [address] | [address] | | | | | [phone] | | | +--------+ + + + [...] Miscellaneous Notes Telephone Encounter - Maegan Munoz, Records Management Director - 03/08/2016 1:09 PM PDTReceived hernan jacinto [...] and is in agreement with her[facility] boone. [facility] Plan of [...] RODRIGUEZ | | | | | | [id number] | | | | | | | | +--------+---------+ + + + documented as of this encounter Visit Diagnoses Not on filedocumented in this encounter"
--- OUTSIDE RECORDS SUMMARY | ~2020-05-01 | XMS | Encounter Summary ---
Demographics + + + | Address | [address] | | | [place] [address] | + + + | Home Phone [...] + + + | Author | [facility] | + + + | Organization | [facility] | + + + | [...] Team Providers + +------+ + | Care Clin Tech Name | Role | Phone | [...] HOLLEY MENESES | | | | | [address] | [place], [place] | | | | | [place], [facility] floor | [address] | | | | | [place], [place] | [phone] | | | | | [address] | | | | | | [phone] | | | +--------+ + + + [...]
--- OUTSIDE RECORDS SUMMARY | ~2020-05-01 | XMS | Encounter Summary ---
Demographics + + + | Address | [address] | | | [place] [address] | + + + | Home Phone [...] Author + + + | Author | [facility] | + + + | Organization | [facility] | + + + | Address | Unknown | + + + | Phone | Unavailable | + + + Support + + + + + | Name | Relationship | Address | Phone | + + + + + | Casandra Smith | ROBERTO | [place] | | + + + + + Care Team Providers + +------+ + | Care Project Coordinator Rn Name | Role | Phone | + [...] of this encounter Progress Notes Interface, Laundry Manager In - 04/28/2005 6:17 PM PDTClinic Date: [...] is completed this weekend. Lloyd Garcia M.D. Head Wrestling Coach, Orthopedics and Rehabilitation / [id number] / [id number] / [id number] / [id number] cc: Ninfa Guillen M.D. [address] [place] [address], [place] [address]Oblbbbvlabglhw signed by Interface, Laundry Manager In at 04/28/2005 6:1 7 PM PDTdocumented in this encounter Plan of Treatment Not on filedocumented as of this encounter Visit Diagnoses Not on filedocumented in this encounter"
--- OUTSIDE RECORDS SUMMARY | ~2020-05-01 | XMS | Encounter Summary ---
Demographics + + + | Address | [address] | | | [place] [address] | + + + | Home Phone [...] Team Providers + +------+ + | Care Dispensary Clerk Name | Role | Phone | [...] | | | | JOSE | [address] [facility] | | | | | | MEDICAL | [facility] | | | | | | CLINIC [address] | [address] [place], | | | | | | [address] | [place] | | | | | | [place], [place] | [address] | | | | | | [address] | Phone: | | | | | | | [phone] | | | | | | | Fax: | | | | | | | [phone] | +--------+--------+ + + + + Encounter [...] | | | | Mailcode: [id number] | [place], [place] | Calcification; Back | | | | [facility] | [address] | Pain; Hip Pain | | | | [place], [place] | [phone] | | | | | [address] | | | | | | [phone] | | | +--------+---------+ + + + [...] and plan of care. KALYAN COLBY MD [facility] [address] [facility] [phone] aRaul kasper - 8 12:04 PM PDT [...] w ound vac placement were undertaken with long distance operator antibiotics until the infection cleared. She now [...]
--- OUTSIDE RECORDS SUMMARY | ~2020-05-01 | XMS | Encounter Summary ---
Demographics + + + | Address | [address] | | | [place] [address] | + + + | Home Phone [...] Providers + +------+ + | Care Housing Inspector Name | Role | Phone | + +------+ + | Travis Mcginnis MD | PCP | | + +------+ + Encounter Details +--------+ + + + + | Date | Type | Department | Care Team | Description | +--------+ + + + + | 10/02/ | Hospital | Radiology/Imaging | Royce Durand, | | | 2019 | Encounter | Lab at [facility] [address] | [address] [facility] | | | | | [facility] | [facility] | | | | | Health and Healing, | [place], [place] | | | | | | [address] | | | | | Floor [place], [place] | [phone] | | | | | [address] | | | | | | [phone] | | | +--------+ + + + [...] + + + +---------+ + + | Blanch-3 Fatty | Take by mouth. | | [...]
--- OUTSIDE RECORDS SUMMARY | ~2020-05-01 | XMS | Encounter Summary ---
Demographics + + + | Address | [address] | | | [place] [address] | + + + | Home Phone [...] Team Providers + +------+ + | Care Well Puller Name | Role | Phone | [...] as of this encounter Progress Notes Interface, Outdoor Pursuits Instructor In - 07/18/2006 3:04 AM PDTCLINIC DATE: [...] further treatment options. Brigette Lim P.A.-C / [id number] / [id number] / 32519 / Tdocumented in this encounter Plan of Treatment Not on filedocumented as of this encounter Visit Diagnoses Not on filedocumented in this encounter"
--- OUTSIDE RECORDS SUMMARY | ~2020-05-01 | XMS | Encounter Summary ---
Demographics + + + | Address | [address] | | | [place] [address] | + + + | Home Phone | | + + + | Preferred Language | Unknown | + + + | Marital Status | | + + + | Anabaptism Affiliation | 1076 | + + + | Race | Unknown | + + + | Ethnic Group | Unknown | + + + Author + + + | Author | [facility] | | | and [place] | + + + | Organization | [facility] | | | [...] Team Providers + +------+ + | Care Parking Meter Installer Name | Role | Phone | + +------+ + | Eric Krishna MD | PCP | | + +------+ + Encounter Details +--------+ + + + + | Date | Type | Department | Care Team | Description | +--------+ + + + + | 10/18/ | Hospital | [facility] IP | Conversion | Pain | | 2018 | Encounter | CONVERSION DEP [address] | Transaction, | | | | | ARNIE LYLES | Provider Unknown | | | | | MITCH JEFFREY | [phone] | | | | | [address] | | | | | | [phone] | | | +--------+ + + + [...] [place] | | | | | | [address] | | | | | | | [...]
--- OUTSIDE RECORDS SUMMARY | ~2020-05-01 | XMS | Encounter Summary ---
Demographics + + + | Address | [address] | | | [place] [address] | + + + | Home Phone [...] Providers + +------+ + | Care Manager Convention Name | Role | Phone | + +------+ + PCP | Unavailable | + +------+ + Encounter Details +--------+ + + + + | Date | Type | Department | Care Team | Description | +--------+ + + + + | 08/16/ | Hospital | Cardiac | Sjh, Car Ecg Tech | | | 2007 | Encounter | Non-Invasive Testing | [address] | | | | | at Pankaj Lobato | [facility] | | | | | [address] | [place] [address] | | | | | [address] | | | | | | Luis Alfredo, [address] [place] [address] | | | | | | [place], [place] | | | | | | [address] | | | | | | [phone] | | | +--------+ + + + [...] + + documented in this encounter Results 12 LEAD ECG (08/16/2008 3:42 PM PST) [...] + | LINK TO | | | [facility] | | | MUSE WEB | [...] view image for the detailed interpretation from [facility] results. | CARDIOLOGY | | | | + + + + + + + + | Performing | Address | City/State/Zipcode | Phone Number | | Organization | | | | + + + + + | [facility] | [address] | [place], [place] | | | CARDIOLOGY | [address] | [address] | | + + + + + | [facility] | [address] | [place], [place] | | | CARDIOLOGY | [address] | [address] | | + + + + + documented in this encounter Visit Diagnoses + + | Diagnosis | + + | Other specified pre-operative examination | + + documented in this encounter
--- OUTSIDE RECORDS SUMMARY | ~2020-05-01 | XMS | Encounter Summary ---
Demographics + + + | Address | [address] | | | [place] [address] | + + + | Home Phone [...] Team Providers + +------+ + | Care Mechanics Handyman Name | Role | Phone | + [...] as of this encounter Progress Notes Interface, Dictaphone Transcriber In - 04/28/2005 10:57 PM PDTClinic Date: [...] resolved, and she attributes to eating a Somali pork and vegetable lap dish called [employer]. Physical Examination General: Shelby is in good [...] drain is in place. Lloyd Garcia M.D. Supervisor Net Making-Orthopedics and Rehabilitation / SALEEM [id number] / [id number] / [id number] / cc: Everett Guillen M.D. [address] [place] [id number] signed by Interface, Dictaphone Transcriber In at 04/28/2005 10:57 PM PDTdocumented in this encounter Plan of Treatment Not on filedocumented as of this encounter Visit Diagnoses Not on filedocumented in this encounter"
--- OUTSIDE RECORDS SUMMARY | ~2020-05-01 | XMS | Encounter Summary ---
Demographics + + + | Address | [address] | | | [place] [address] | + + + | Home Phone | | + + + | Preferred Language | Unknown | + + + | Marital Status | | + + + | Pentecostal Affiliation | 1076 | + + + | Race | Unknown | + + + | Ethnic Group | Unknown | + + + Author + + + | Author | [facility] | | | and [place] | + + + | Organization | [facility] | | [...] Team Providers + +------+ + | Care Centrifugal Extractor Operator Name | Role | Phone | [...] 2011 | | GASTROENTEROLOGY | [address], [place] | | | | | [address] [place] | [address] [place], [place] | | | | | [address] [place], [place] | [address] | | | | | [address] | | | | | | [phone] | | | +--------+ + + + [...] pcp and is wonde ring if in [place] can do the procedure. She will call [...] [place] | | | | | | [address] | | | | | | | | +--------+---------+ + + + documented as of this encounter Visit Diagnoses Not on filedocumented in this encounter
--- OUTSIDE RECORDS SUMMARY | ~2020-05-01 | XMS | Encounter Summary ---
Demographics + + + | Address | [address] | | | [place] [address] | + + + | Home Phone [...] Team Providers + +------+ + | Care Field Crop Ii Farmworker Name | Role | Phone | + [...] Pavilion | | | | | | [place], [place] | | | | | | [address] | | | | | | [phone] | | | +--------+ + + + [...]
--- OUTSIDE RECORDS SUMMARY | ~2020-05-01 | XMS | Encounter Summary ---
Demographics + + + | Address | [address] | | | [place] [address] | + + + | Home Phone [...] Team Providers + +------+ + | Care Fisher Crab Name | Role | Phone | + [...] | | Surgery -Hand | [facility] | | | | | Surgery [address] | [place] [address] | | | | | [address] | | | | | | Mailcode: [id number] | | | | | | [facility] | | | | | | [place], [place] | | | | | | [address] | | | | | | [phone] | | | +--------+ + + + [...] + + + + | PRODUCT | [id number] | | [facility] | | | UNIT [...] | + + + + + | [facility] DEPARTMENT OF | [address] | [place] [address] | | | PATHOLOGY | [address] | | | + + + + + | [facility] DEPARTMENT OF | [address] | [place] [address] | | | PATHOLOGY | [address] [...] + + + + | PRODUCT | [id number] | | [facility] | | | UNIT [...] | + + + + + | [facility] DEPARTMENT OF | [address] [facility] | [place] [address] | | | PATHOLOGY | [address] | | | + + + + + | [facility] OF | [address] [facility] | [place] [address] | | | PATHOLOGY | [address] [...] + + + + + | [facility] | [address] | [place] [address] | | | PATHOLOGY | [address] | | | + + + + + | [facility] | [address] | [place] [address] | | | PATHOLOGY | [address] | | | + + + + + documented in this encounter Visit Diagnoses Not on filedocumented in this encounter"
--- OUTSIDE RECORDS SUMMARY | ~2020-05-01 | XMS | Encounter Summary ---
Demographics + + + | Address | [address] | | | [place] [address] | + + + | Home Phone [...] Team Providers + +------+ + | Care Plumbing Service Technician Name | Role | Phone | [...] as of this encounter Progress Notes Interface, Photographer News In - 04/28/2005 7:30 PM PDTClinic Date: [...] Mariella Camacho P.A.-C. Lloyd Garcia M.D. / [id number] / [id number] / [id number] / [id number] Tdocumented in this encounter Plan of Treatment Not on filedocumented as of this encounter Visit Diagnoses Not on filedocumented in this encounter"
--- OUTSIDE RECORDS SUMMARY | ~2020-05-01 | XMS | Encounter Summary ---
Demographics + + + | Address | [address] | | | [place] [address] | + + + | Home Phone [...] Providers + +------+ + | Care Project Controls Specialist Name | Role | Phone | [...] Pavilion | | | | | | [place], [place] | | | | | | [address] | | | | | | [phone] | | | +--------+ + + + [...] | | + +---------+ + + | [facility] DEPARTMENT OF | | | | | [...] | | + +---------+ + + | [facility] | | | | | [...] ON | | | | | | [facility], ACC# [id number], | | | | | | DONE [...]
--- OUTSIDE RECORDS SUMMARY | ~2020-05-01 | XMS | Encounter Summary ---
Demographics + + + | Address | [address] | | | [place] [address] | + + + | Home Phone [...] Team Providers + +------+ + | Care Animation Director Name | Role | Phone | + +------+ + PCP | Unavailable | + +------+ + Encounter Details +--------+ + + + + | Date | Type | Department | Care Team | Description | +--------+ + + + + | 11/22/ | Results | | Other, Faculty | | | 2003 | Only | | [phone] | | +--------+ + + + + [...] RLB | | | | | | FA Stain...........: | | | | | [...] | + + + | Ordered george AJIN | | + + + + + + + + | Performing | Address | City/State/Zipcode | Phone Number | | Organization | | | | + + + + + | [facility] | [address] | [place] [address] | | | LAB-MICRO | | | [...] + + + | [facility] | [address] | [place] [address] | | | LAB-MICRO | | | [...] | + + + + + | [facility] | [address] | [place] [address] | | | LAB-MICRO | | | [...] | | | | | | No Epithelial cells | | | | | | | | | | | | No | | | | | | organisms seen. | | | | | | Culture: | | | | | | Preliminary Report: | | | | | | Culture Received, No | | | | | | growth to date. | | | | | | Final Report: No | | | | | | growth after 72 hours | | | | | | Final [...] | + + + + + | [facility] | [address] | [place] [address] | | | LAB-MICRO | | | [...] | + + + + + | [facility] | [address] | [place] [address] | | | LAB-MICRO | | | [...] | + + + + + | [facility] | [address] | [place] [address] | | | LAB-MICRO | | | [...] + + + | [facility] | [address] | [place] [address] | | | LAB-MICRO | | | | + + + + + documented in this encounter Visit Diagnoses Not on filedocumented in this encounter"
--- OUTSIDE RECORDS SUMMARY | ~2020-05-01 | XMS | Encounter Summary ---
Demographics + + + | Address | [address] | | | [place] [address] | + + + | Home Phone [...] Team Providers + +------+ + | Care Dynamic Etching Processor Name | Role | Phone | + +------+ + PCP | Unavailable | + +------+ + Encounter Details +--------+ + + + + | Date | Type | Department | Care Team | Description | +--------+ + + + + | 09/14/ | Results | | Other, Faculty | | | 2002 | Only | | [phone] | | +--------+ + + + + [...] + | Ordered by JEFERSON CRONIN, . [id number] Patient unavailable, | | | specimen not obtained | | + + + + + + + + | Performing | Address | City/State/Zipcode | Phone Number | | Organization | | | | + + + + + | [facility] | [address] | [place] [address] | | | LABORATORY | | | [...] + | Ordered by JEFERSON CRONIN JR. [id number] Patient unavailable, | [facility] | | specimen not obtained | DEPARTMENT OF | | | PATHOLOGY | + + + + + + + + | Performing | Address | City/State/Zipcode | Phone Number | | Organization | | | | + + + + + | [facility] DEPARTMENT | [address] | [place] [address] | | | PATHOLOGY | [address] | | | + + + + + | [facility] | [address] | [place] [address] | | | PATHOLOGY | [address] [...] + | Ordered by JEFERSON CRONIN JR. [id number] Staff or dialysis draw | [facility] | | required. | DEPARTMENT OF | | | PATHOLOGY | + + + + + + + + | Performing | Address | City/State/Zipcode | Phone Number | | Organization | | | | + + + + + | [facility]MENT [facility] | [address] | [place] [address] | | | PATHOLOGY | [address] | | | + + + + + | [facility] DEPARTMENT OF | [address] | [place] [address] | | | PATHOLOGY | [address] [...] [facility] DE[facility] | [address] | [place] [address] | | | PATHOLOGY | [address] | | | + + + + + | [facility]MENT OF | [address] | [place] [address] | | | PATHOLOGY | [address] [...] | + + + + + | [facility] | [address] | [place] [address] | | | PATHOLOGY | [address] | | | + + + + + | [facility] DEPARTMENT OF | [address] | [place] [address] | | | PATHOLOGY | [address] | | | + + + + + documented in this encounter Visit Diagnoses Not on filedocumented in this encounter"
--- OUTSIDE RECORDS SUMMARY | ~2020-05-01 | XMS | Encounter Summary ---
Demographics + + + | Address | [address] | | | [place] [address] | + + + | Home Phone [...] Providers + +------+ + | Care Senior Billing Consultant Name | Role | Phone | [...] | | | | Mailcode: PV430 | [place], [place] | | | | | [facility] | [address] | | | | | [place], [place] | [phone] | | | | | [address] | | | | | | [phone] | | | +--------+ + + + [...]
--- OUTSIDE RECORDS SUMMARY | ~2020-05-01 | XMS | Encounter Summary ---
Demographics + + + | Address | [address] | | | [place] [address] | + + + | Home Phone [...] Providers + +------+ + | Care Air And Hydronic Balancing Technician Name | Role | Phone | [...] | Transcriptions | + + | Interface, Entertainment Manager In - 09/19/2005 9:05 PM PST Date: | | 10/08/2003Attending Surgeon: Marguerite Araujo M.D.Fabrication Operator(s): | | Stas Menjivar M.D.Preoperative Diagnosis(es):Right [...] recoveryroom in stable condition.Marguerite Araujo, | | [facility] / [id number] / [id number] / [id number] / T: 10/08/2003 | |a clean granulating [...] | | | |JEMarcus / [place] | |[id number] / [id number] / 33007 / | | | | | + + OPERATION RECORD (10/08/2003) + + | Transcriptions | + + | Interface, Entertainment Manager In - 09/19/2005 9:05 PM PST Date: | | 10/08/2003Attending Surgeon: Lloyd Garcia M.D.Fabrication Operator(s): | | Benson Boone M.D. Stas [...] | [facility] with the hipsflexed and abduction pillow in place and | | brought from the Operating Room tothe Recovery Room in stable and satisfactory condition | | having tolerated theprocedure well without apparent complication. All counts were | | reportedcorrect prior to leaving the Operating Room. There were no apparenthypotensive | | episodes or other anesthetic difficulties.Lloyd Garcia M.D.Information Technology Teacher, | | Orthopedics and Rehabilitation / [id number] / [id number] / [id number] / T: | | 10/08/2003 | |tube [...] | | | |Lloyd Garcia M.D. | |Information Technology Teacher, Orthopedics and Rehabilitation | | | | / | |[id number] / [id number] / 26433 / | | | | | + + OPERATION RECORD (10/05/2003) + + | Transcriptions | + + | Interface, Entertainment Manager In - 09/19/2005 9:05 PM PST Date: | | 10/05/2003Attending Surgeon: Lloyd Garcia M.D.Fabrication Operator(s): | | Benson Boone M.D.Preoperative Diagnosis(es):Right [...] | case.Benson Boone M.D.Lloyd Garcia M.D.RT / [id number] / [id number] / [id number] / [id number]: | | 10/05/2003T: 10/05/2003 | |flap for [...] sulfate for now. | | | |Dr. lLoyd Garcia was present for this entire case. | | | | | | | | | |Benson Boone M.D. | | | | | | | |Lloyd Garcia M.D. | | | |RT / HS | |[id number] / [id number] / [id number] / 48817 | | | | | + + documented in this encounter Visit Diagnoses Not on filedocumented in this encounter"
--- OUTSIDE RECORDS SUMMARY | ~2020-05-01 | XMS | Encounter Summary ---
Demographics + + + | Address | [address] | | | [place] [address] | + + + | Home Phone [...] + +------+ + | Care Director Of Scientific Research Name | Role | Phone | + [...] as of this encounter Progress Notes Interface, Staff Sonographer In - 06/19/2006 1:01 AM PDTCLINIC DATE: 10/15/2001 ORTHOPEDIC CLINIC HISTORY: Ms. Galdmaez is a 41-year-old female who is being [...] ALLERGIES: None. SOCIAL HISTORY: She lives in [facility], and she is currently not working. She [...] the appointment. Her current phone number is [phone]. At this point, we will not schedule her for a followup until we have these other appointments, and then we will have her followup with . Again, we will forward our recommendations to him. Pricilla Metcalf M.D. Kalyan Wu M.D. [facility] / [id number] / [id number] / [id number] / [id number] cc: Lloyd Garcia M.D. [id number] docume nted in this encounter Plan of Treatment Not on filedocumented as of this encounter Visit Diagnoses Not on filedocumented in this encounter"
--- OUTSIDE RECORDS SUMMARY | ~2020-05-01 | XMS | Encounter Summary ---
Demographics + + + | Address | [address] | | | [place] [address] | + + + | Home Phone [...] Providers + +------+ + | Care Senior Systems Programmer Name | Role | Phone | + [...] | | | | | | [address] | | | | | | | [address] | | | | | | | Jamie 2SE/[facility] | | | | | | | [place] | | | | | | | [place] | | | | | | | (MNP/OLD [facility]) | | | | | | | [place], | | | | | | | [place] [address] | +--------+--------+ + + + + Encounter Details +--------+---------+ + + + | Date | Type | Department | Care Team | Description | +--------+---------+ + + + | 09/08/ | Office | Radiation Oncology | Kevin Arenas MD | Heterotopic Tissue | | 2007 | Visit | at [facility] [address] | [address] | (Primary Dx) | | | | [address] | [place], [place] | | | | | [place], 4th floor | [address] | | | | | [place], [place] | [phone] | | | | | [address] | | | | | | [phone] | | | +--------+---------+ + + + [...] will treatment her today. KEVIN ARENAS MD [facility] RADIATION MEDICINE [facility] [place] [address] r Miller - 09/08/2008 2:21 PM PST [...] DAVID, bone graft and HO excision for automotive service management teacher masood osteoarthritis, HO formation, and non-union of [...]
--- OUTSIDE RECORDS SUMMARY | ~2020-05-01 | XMS | Encounter Summary ---
Demographics + + + | Address | [address] | | | [place] [address] | + + + | Home Phone [...] Team Providers + +------+ + | Care Rum Processing Operator Name | Role | Phone | [...] of this encounter Progress Notes Interface, Civil Engineering Designer In - 08/10/2006 3:02 AM PSTCLINIC DATE: [...] her own car and requires a large jbfqd-xmvsgew-qszi vehicle for her friends to 3rd mate her own. She is able to ambulate [...] adduction which is not painful. X-rays show ytsjhhct-gt-fpopto right hip DJD with joint space narrowing asymmetrically and large marginal osteocytes, most notably superiorly, posteriorly, as well as inferiorly and less so anteriorly. Right knee x-rays show eoyr-zv-lahuaujh degenerative changes. No radiopaque loose bodies. AP, lateral, and oblique views of the lumbosacral spine show pbvw-yq-ktnferua facet arthrosis at L3-L4, L4-L5, and L5-S1, right greater than left. Disk spaces are well maintained. There is no spondylolisthesis or spondylolysis. ASSESSMENT: Ntsjgtxs-ui-nglqel hypotrophic osteoarthritis of the right hip; bbne-ez-gtggwohd degenerative changes of the right knee; and cvib-qb-dgyocczt, right greater than left, lumbar and lumbosacral [...] the right hip. Lloyd Garcia M.D. / [id number] / [id number] / [id number] / [id number] C: 06/12/2000 otilia cc: JILLIAN TODD M.D. PJuan JoseOJuan Jose [place], [place] [address]Krqojukwzzxwqu signed by Interface, Civil Engineering Designer In at 08/10/2006 3: 02 AM PSTdocumented in this encounter Plan of Treatment Not on filedocumented as of this encounter Visit Diagnoses Not on filedocumented in this encounter"
--- OUTSIDE RECORDS SUMMARY | ~2020-05-01 | XMS | Encounter Summary ---
Demographics + + + | Address | [address] | | | [place] [address] | + + + | Home Phone [...] Team Providers + +------+ + | Care Dough Molder Name | Role | Phone | + +------+ + | No Pcp Per Patient | PCP | Unavailable | + +------+ + Reason for Visit AUTH/CERT +--------+--------+ + + + + | Status | Reason | Specialty | Diagnoses / | Referred By | Referred To | | | | | Procedures | Contact | Contact | +--------+--------+ + + + + | Closed | | | | | [facility] | | | | | | | Orthopaedics | | | | | | | [address] | | | | | | | [place]co [place] | | | | | | | [id number] | | | | | | | Rose | | | | | | | Terrence | | | | | | | (MNP/OLD [facility]) | | | | | | | [place], | | | | | | | [place] [address] | +--------+--------+ + + + + Encounter Details +--------+ + + + + | Date | Type | Department | Care Team | Description | +--------+ + + + + | 09/06/ | Hospital | [facility] [address] | Tyrone Colby MD | | | 2007 - | Encounter | [address] [facility] [address] | [address] [facility] | | | | | [id number] | [facility] | | | 09/09/ | | Rose Ocampo | [place], [place] | | | 2007 | | (MNP/[facility]) | [address] | | | | | [place], [place] | [phone] | | | | | [address] | | | +--------+ + + + [...] + + + | Blood Pressure | 145/76 | 09/09/2008 8:30 AM | | | | | PST | | + + + + + | Pulse | 99 | 09/09/2008 8:03 AM | | | | | PST | | + + + + + | Temperature | 36.5 C (97.7 F) | 09/09/2008 8:03 AM | | | | | PST | | + + + + + | Respiratory Rate | 15 | 09/09/2008 8:03 AM | | | | | PST | | + + + + + | Oxygen Saturation | 96% | 09/09/2008 8:03 AM | | | | | PST | | + + + + + | Inhaled Oxygen | - | - | | | Concentration | | | | + + + + + | Weight | 114.7 kg (252 lb | 09/06/2008 7:00 AM | | | | 13.9 oz) | PST | | + + + + + | Height | - | - | | + + + + + | Body Mass Index | 43.4 | 08/16/2008 2:21 PM | | | | | PST | | + + + + + documented in this encounter Discharge Summaries Maximiliano Chisholm Md - 09/09/2008 5:45 PM PSTTOTAL HIP - INPATIENT PROVIDER DISCHARGE AND INTERD ISCIPLINARY INSTRUCTIONS Date of Admission: 09/06/08 Discharge Date: 09/09/08 Service: Orthpaedic Joints You or your family member have been primarily hospitalized for: Right hip arthritis, failure of healing of prior bone cut site, formation of excess bone Principal Final Diagnosis: 1. Right Hip osteoarthritis 2. Right greater trochanter osteotomy non-union 3. Right hip heterotopic ossification formation Additional Diagnoses: Acute blood loss anemia Hx of sleep apnea Hx of heterotopic ossification of right hip Hypokalemia You or your family had the following procedures: Right hip replacement, removal of the excess bone, and repair of the unhealed bone. Principal Procedure: Right total hip arthroplasty, right greater trochanter osteotomy non-union open reduction a nd internal fixation, right hip heterotopic ossification excision (Date of operation: ) Additional Procedures: Radiation oncology consult Prophylactic radiation to right hip region to prevent heterotopic ossification PT/OT consult Electrolyte replacement Transfusion of one unit PRBCs Reason for Admission, Significant Findings, Treatment, and Complications Brief Hospital Course: Shelby Galdamez was admitted for the above-stated condition and underwent the above-stated o peration. Tolerated surgery well. No complications. Hemovac drain removed on post-op day #1. Angulo catheter removed on post-op day #3. Radiation oncology team was consulted and [facility] administered a single radiation treatment as prophylaxis against formation of heterotopic ossification in the future on post-operative day #2. On the evening of post-operative day #2 she had been persistently tachycardic and her orthostatics were positive and did not resp ond to a fluid bolus and although her Hct was 27 - 29 she was transfused one unit PRBCs for relative acute blood loss anemia since her pre-operative Hct was 39. At the time of dischar her Hct was 30.5. On the evening of post-operative day #1 she had some oxygen desaturati on at night when she was dozing off to sleep. She was very tired and couldn't stay awake. She has a history of sleep apnea and she uses CPAP at home. When she had the CPAP on her ox ygen saturation was fine and when she was awake with the CPAP off her oxygen saturation was fine; it was just when she fell asleep without CPAP on when her oxygen saturation would fall . She did not have any further problems with respiration after this. On the day of dischar she had some hypokalemia to 3.3 and this was replaced. PT/OT was involved in her care po st-operatively. They felt she would benefit from further rehab at a SNF. Diet: Regular Activity: Touch down weight bearing on the right leg for 6-12 weeks. Weight bear as tolera priscilla on left leg. Posterior hip precautions (no hip flexion >90 degrees, no crossing your le gs, no turning your leg to the inside (internal rotation)). Also, no hip abduction (pulling the leg out to the side). Special Instructions: (Treatment, Equipment, Supplies, Dressings, LAB follow-up) 0. Daily dry dressing change on right hip. 0. Needs continued PT/OT at [facility] 1. You may remove dressing 3 days after your surgery and OK for shower thereafter as long a s the incision is not draining. Sponge bath until dressings off. No soaking in tub, pool, et c. If there is drainage after [address] new guaze on the incision and call the Orthopaedi c clinic [phone]. 2. Continue to take Aspirin 325mg twice a day for a total of 6 weeks. Stop if you have stom ach upset or blood in your stool. Let your surgeon know if you have had GI bleeding in the p ast after taking Aspirin or NSAID's. 3. DO NOT let anyone start you on Antibiotics if they suspect your wound is infected. Call typing section chief [facility] Orthopaedist first. Call [phone] for daytime and weekdays, or [phone] for nights and weekends. If you have any of the following: Difficulty breathing or unusual shortness of breath Excessive bleeding, drainage at the operative site Fevers, chills, increased pain that is not relieved by pain medications Persistent nausea or vomiting Other SPECIFIC concerns, such as: Drainge from wound or pus. * It is normal to have a large amount of bruising, or purplish discoloration spread from th e hip down to the leg. Follow Up Appointments: Dr. Colby in 2 wks. Please call [phone] now to confirm appointment. Follow Up Tests: (Tests at [facility] must be entered into in[facility]) none Condition On Discharge: Good Discharge Medications: acetaminophen (aka TYLENOL) tablet 650 mg, 650 mg, Oral, EVERY 4 HOURS albuterol (aka PROVENTIL, VENTOLIN) 90 mcg/Actuation inhaler 2 Puff, 2 Puff, Inhalation, EV JAZMINE 4 HOURS NEEDED aspirin EC tablet 325 mg, 325 mg, Oral, TWICE DAILY FOR 6 WEEKS bisacodyl (aka DULCOLAX) suppository 10 mg, 10 mg, Rectal, DAILY NEEDED cyclobenzaprine (aka FLEXERIL) tablet 10 mg, 10 mg, Oral, TWICE DAILY hydrochlorothiazide (aka HYDRODIURIL) capsule 12.5 mg, 12.5 mg, Oral, DAILY lisinopril (aka PRINIVIL) tablet 20 mg, 20 mg, Oral, DAILY lovastatin (aka MEVACOR) tablet 10 mg, 10 mg, Oral, EVERY EVENING magnesium hydroxide (aka MILK OF MAGNESIA) suspension 30 mL, 30 mL, Oral, EVERY 8 HOURS NEEDED oxycodone immediate release (aka ROXICODONE) tablet 5-15 mg, 5-15 mg, Oral, EVERY 4 HOURS A S NEEDED ranitidine (aka ZANTAC) tablet 150 mg, 150 mg, Oral, TWICE DAILY senna-docusate (aka SENOKOT S) 8.6-50 mg 2 Tab, 2 Tab, Oral, TWICE DAILY Vital Signs at discharge as appropriate: 24 Hour Vital Min/Max: Systolic (24hrs), Av mmHg, Min:98 mmHg, Max:149 mmHg Diastolic (24hrs), Av mmHg, Min:52 mmHg, Max:89 mmHg Pulse Av.5 Min: 68 Max: 106 Temp Av.9 C (98.5 F) Min: 36.2 C (97.2 F) Max: 38 C (100.4 F) Resp Av.2 Min: 12 Max: 16 SpO2 Av.3 % Min: 92 % Max: 97 % Discharge Patient To: SNF Does patient have a planned readmission: No Discharging Provider: MAXIMILIANO CHISHOLM MD Date Completed: 09/09/08 Discharging Attending: Tyrone Colby MD documented in this encount er Discharge Instructions Instructions Maximiliano Chisholm Md - 09/06/2008TOTAL HIP - INPATIENT PROVIDER DISCHARGE AND INTERD ISCIPLINARY INSTRUCTIONS Date of Admission: 09/06/08 Discharge Date: 09/09/08 Service: Orthpaedic Joints You or your family member have been primarily hospitalized for: Right hip arthritis, failure of healing of prior bone cut site, formation of excess bone Principal Final Diagnosis: 1. Right Hip osteoarthritis 2. Right greater trochanter osteotomy non-union 3. Right hip heterotopic ossification formation Additional Diagnoses: Acute blood loss anemia Hx of sleep apnea Hx of heterotopic ossification of right hip You or your family had the following procedures: Right hip replacement, removal of the excess bone, and repair of the unhealed bone. Principal Procedure: Right total hip arthroplasty, right greater trochanter osteotomy non-union open reduction a nd internal fixation, right hip heterotopic ossification excision (Date of operation: ) Additional Procedures: Radiation oncology consult Prophylactic radiation to right hip region to prevent heterotopic ossification PT/OT consult Transfusion of one unit PRBCs Reason for Admission, Significant Findings, Treatment, and Complications Brief Hospital Course: Shelby Galdamez was admitted for the above-stated condition and underwent the above-stated o peration. Tolerated surgery well. No complications. Hemovac drain removed on post-op day #1. Angulo catheter removed on post-op day #3. Radiation oncology team was consulted and th administered a single radiation treatment as prophylaxis against formation of heterotopic ossification in the future on post-operative day #2. On the evening of post-operative day #2 she had been persistently tachycardic and her orthostatics were positive and did not resp ond to a fluid bolus and although her Hct was 27 - 29 she was transfused one unit PRBCs for relative acute blood loss anemia since her pre-operative Hct was 39. On the evening of post -operative day #1 she had some oxygen desaturation at night when she was dozing off to sleep . She was very tired and couldn't stay awake. She has a history of sleep apnea and she use s CPAP at home. When she had the CPAP on her oxygen saturation was fine and when she was aw sawyer with the CPAP off her oxygen saturation was fine; it was just when she fell asleep witho ut CPAP on when her oxygen saturation would fall. PT/OT was involved in her care post-opera tively. They felt she would benefit from further rehab at a SNF. Diet: Regular Activity: Touch down weight bearing on the right leg for 6-12 weeks. Weight bear as tolera priscilla on left leg. Posterior hip precautions (no hip flexion >90 degrees, no crossing your le gs, no turning your leg to the inside (internal rotation)). Also, no hip abduction (pulling the leg out to the side). Special Instructions: (Treatment, Equipment, Supplies, Dressings, LAB follow-up) 0. Needs continued PT/OT at SNF 1. You may remove dressing 3 days after your surgery and OK for shower thereafter as long a s the incision is not draining. Sponge bath until dressings off. No soaking in tub, pool, et c. If there is drainage after [address] new guaze on the incision and call the Orthopaedi c clinic [phone]. 2. Continue to take Aspirin 325mg twice a day for a total of 6 weeks. Stop if you have stom ach upset or blood in your stool. Let your surgeon know if you have had GI bleeding in the p ast after taking Aspirin or NSAID's. 3. DO NOT let anyone start you on Antibiotics if they suspect your wound is infected. Call typing section chief [facility] Orthopaedist first. Call [phone] for daytime and weekdays, or [phone] for nights and weekends. If you have any of the following: Difficulty breathing or unusual shortness of breath Excessive bleeding, drainage at the operative site Fevers, chills, increased pain that is not relieved by pain medications Persistent nausea or vomiting Other SPECIFIC concerns, such as: Drainge from wound or pus. * It is normal to have a large amount of bruising, or purplish discoloration spread from th e hip down to the leg. Follow Up Appointments: Dr. Colby in 2 wks. Please call [phone] now to confirm appointment. Follow Up Tests: (Tests at [facility] must be entered into [facility]) none Condition On Discharge: Good Discharge Medications: acetaminophen (aka TYLENOL) tablet 650 mg, 650 mg, Oral, EVERY 4 HOURS albuterol (aka PROVENTIL, VENTOLIN) 90 mcg/Actuation inhaler 2 Puff, 2 Puff, Inhalation, EV JAZMINE 4 HOURS NEEDED aspirin EC tablet 325 mg, 325 mg, Oral, TWICE DAILY FOR 6 WEEKS bisacodyl (aka DULCOLAX) suppository 10 mg, 10 mg, Rectal, DAILY NEEDED cyclobenzaprine (aka FLEXERIL) tablet 10 mg, 10 mg, Oral, TWICE DAILY hydrochlorothiazide (aka HYDRODIURIL) capsule 12.5 mg, 12.5 mg, Oral, DAILY lisinopril (aka PRINIVIL) tablet 20 mg, 20 mg, Oral, DAILY lovastatin (aka MEVACOR) tablet 10 mg, 10 mg, Oral, EVERY EVENING magnesium hydroxide (aka MILK OF MAGNESIA) suspension 30 mL, 30 mL, Oral, EVERY 8 HOURS NEEDED oxycodone immediate release (aka ROXICODONE) tablet 5-15 mg, 5-15 mg, Oral, EVERY 4 HOURS A S NEEDED ranitidine (aka ZANTAC) tablet 150 mg, 150 mg, Oral, TWICE DAILY senna-docusate (aka SENOKOT S) 8.6-50 mg 2 Tab, 2 Tab, Oral, TWICE DAILY Vital Signs at discharge as appropriate: 24 Hour Vital Min/Max: Systolic (24hrs), Av mmHg, Min:98 mmHg, Max:149 mmHg Diastolic (24hrs), Av mmHg, Min:52 mmHg, Max:89 mmHg Pulse Av.5 Min: 68 Max: 106 Temp Av.9 C (98.5 F) Min: 36.2 C (97.2 F) Max: 38 C (100.4 F) Resp Av.2 Min: 12 Max: 16 SpO2 Av.3 % Min: 92 % Max: 97 % Discharge Patient To: SNF Does patient have a planned readmission: No Discharge Summary Completed?: Yes- Date Not on file. Discharging Provider: MAXIMILIANO CHISHOLM MD Date Completed: 09/09/08 Discharging Attending: Tyrone Colby MD The information above is accurate as of 09/09/2008 8:11 AM . If there are changes prior to her discharge, these will be made. documented in this encounter Medications at Time of [...] +---------+--------+ + documented as of this encounter Progress Notes Maximiliano Chisholm Md - 09/09/2008 7:50 AM PST Orthopaedic Surgery Progress Note Hospital Day: 3 Diagnosis: R hip osteoarthritis, R greater trochanter osteotomy non-union, R hip heterotopi c ossification formation Treatment: Primary R JUAN DAVID, R greater trochanter osteotomy non-union ORIF and autologous bone grafting, R hip heterotopic ossification excision POD #3 S: Received prophylactic radiation yesterday. No CP or SOB. Breathing feels fine. Didn't need CPAP last night. O: Last Vitals: BP 131/67 | Pulse 105 | Temp 38 C (100.4 F) | Resp 12 | Wt 114.7 kg (25 2 lb 13.9 oz) | SpO2 94% 24 Hour Vital Min/Max: Systolic (24hrs), Av mmHg, Min:98 mmHg, Max:142 mmHg Diastolic (24hrs), Av mmHg, Min:52 mmHg, Max:67 mmHg Pulse Av.6 Min: 68 Max: 106 Temp Av C (98.6 F) Min: 36.2 C (97.2 F) Max: 38 C (100.4 F) Resp Av.2 Min: 12 Max: 16 SpO2 Av.0 % Min: 92 % Max: 97 % Intake/Output Summary (Last 24 hours) at 09/09 0751 Last data filed at 09/09 0700 Gross per 24 hour Intake 1210 ml Output 2650 ml Net -1440 ml Physical Exam: Gen: NAD, AAOx3 RLE: Incision C/D/I with mild drainage. Clean dressing applied. +ADF, APF, EHL. SILT med ial, lateral, dorsal, plantar foot and 1st DWS. 2+ DP/PT pulses. R hip xray shows greater trochanter fixation in good position, JUAN DAVID implant in some degree o f varus but hip also looks rotated on this view so some of the varus appearance may be due t o this. A: S/P Primary R JUAN DAVID, R greater trochanter osteotomy non-union ORIF and autologous bone grafti ng, R hip heterotopic ossification excision. Tachycardia slightly improved after transfusio n yesterday. Patient is still intermittently on oxygen due to sleep apnea overnight. Will wean oxygen today and see how she does. P: -TDWB RLE, posterior hip precautions, greater trochanter precautions -PT/OT -ASA 325mg PO BID x 6 wks, SCD, PRISCILLA -CBC, BMP pending -Dressing changed today. -Wean daytime oxygen today, continue CPAP at night as needed per her usual home regimen -Possible D/C to SNF today vs tomorrow Addendum: There is an area of erythema on the posteroinferior portion of the incision which is likely due to edema but will monitor this. Also will D/C angulo. Yeimy, Faculty - 8 12:00 AM Shelby Thompson [phone] [id number] [facility] REC NUMBER: [id number] NAME : Shelby Galdamez DATE : 1960 Admit Date: 09/06/2008 Discharge Date: 09/09/2008 PHYSICIAN'S REQUEST FOR HOME HEALTH SERVICES Relevant History: Location to receive services if other than home: Allergies: Height: Weight: Ordering Physician: [id number] [facility] [address], [place] [address] Physician to follow for ongoing home health orders: PCP Name: PCP Phone: Discharge Need(s): 1. Penitentiary Facility Discharge Vendor: [facility] Discharge Suggested First Visit/Delivery Date: Discharge Service/Equipment: 2. Transportation Discharge Vendor: Medicaid - [place] Discharge Suggested First Visit/Delivery Date: Discharge Service/Equipment: stretcher 12:30pm Set Up Person: Tr Rosales - 09/08/2008 2:22 PM PSTRADIATION ONCOLOGY Asked by Ortho to see Ms. Galdamez to discuss prophylactic radiation therapy to prevent future heterotopic ossification to her right hip. Please see our full consult note under radiatio n oncology encounter in her inpatient chart from today's date with Dr. Arcos. She is POD# 2 today and is a good candidate. We plan to simulate her today with custom blocking of her components and bone graft material. We will then deliver a single dose of 7 Gy today. No f ormal follow-up with radiation oncology is needed as she will be followed closely by Ortho. Thanks for this referral. Tasha Chairez - 09/08/2008 1:53 PM PSTOT/ PT contact Note : Attempted to see a pt , she is currently off the floor for radiation . OT/PT will check karey k as able . Tasha Harding OTR//L Pager [phone] Tyrone Haney - 2007 7:55 AM PST Orthopaedic Surgery Progress Note Hospital Day: 2 Diagnosis: R hip osteoarthritis, R greater trochanter osteotomy non-union, R hip heterotopi c ossification formation Treatment: Primary R JUAN DAVID, R greater trochanter osteotomy non-union ORIF and autologous bone grafting, R hip heterotopic ossification excision POD #2 S: Patient continued to be tachycardic last night and orthostatics positive. One unit PRBC s was ordered. O: Last Vitals: BP 94/58 | Pulse 91 | Temp 36.6 C (97.9 F) | Resp 16 | Wt 114.7 kg (252 lb 13.9 oz) | SpO2 94% 24 Hour Vital Min/Max: Systolic (24hrs), Av mmHg, Min:69 mmHg, Max:135 mmHg Diastolic (24hrs), Av mmHg, Min:41 mmHg, Max:72 mmHg Pulse Av.6 Min: 87 Max: 115 Temp Av C (98.6 F) Min: 36.6 C (97.9 F) Max: 37.4 C (99.3 F) Resp Av.2 Min: 12 Max: 16 SpO2 Av.1 % Min: 87 % Max: 98 % Intake/Output Summary (Last 24 hours) at 09/08 0756 Last data filed at 09/08 0700 Gross per 24 hour Intake 3049 ml Output 3550 ml Net -501 ml Physical Exam: Gen: NAD, AAOx3 RLE: Incision C/D/I with mild drainage. Clean dressing applied. +ADF, APF, EHL. SILT med ial, lateral, dorsal, plantar foot and 1st DWS. 2+ DP/PT pulses. R hip xray shows greater trochanter fixation in good position, JUAN DAVID implant in some degree o f varus but hip also looks rotated on this view so some of the varus appearance may be due t o this. A: S/P Primary R JUAN DAVID, R greater trochanter osteotomy non-union ORIF and autologous bone grafti ng, R hip heterotopic ossification excision. Tachycardia likely due to relative acute blood loss anemia. Receiving PRBC transfusion. P: -Receiving 1 unit PRBCs today -TDWB RLE, posterior hip precautions, greater trochanter precautions -PT/OT -ASA 325mg PO BID x 6 wks, SCD, PRISCILAL -Radiation oncology consult called for prophylaxis against heterotopic ossification with s hielding of components and bone graft site -CBC, BMP pending -Dressing changed today. -Anticipate D/C SNF on POD #3 I performed a history and physical examination of the patient and discussed her management with the resident. I reviewed the resident s note and agree with the documented findings and plan of care. TYRONE COLBY MD [facility] [address] [place] [address] Taz Rand - 08/30 5:50 AM PST Ortho Brief Note: Pt remains tachycardic, orthostatic despite fluid bolus. Pt comfortable Last Vitals: BP 91/54 | Pulse 100 | Temp 36.6 C (97.9 F) | Resp 16 | Wt 114.7 kg (252 l b 13.9 oz) | SpO2 98% 24 hour Vitals min/max : Temp Av.1 C (98.7 F) Min: 36.6 C (97.9 F) Max: 37.4 C (99.3 F) Systolic (24hrs), Av mmHg, Min:69 mmHg, Max:135 mmHg Diastolic (24hrs), Av mmHg, Min:41 mmHg, Max:72 mmHg Pulse Av.5 Min: 87 Max: 115 SpO2 Av.7 % Min: 87 % Max: 98 % HEMATOCRIT Date Value Range Status 09/07/08 29.6* 36.0-46.0 (%) Final 09/07/08 27.8* 36.0-46.0 (%) Final 08/16/08 39.8 36.0-46.0 (%) Final Plan to transfuse 1 U PRBCs for acute blood loss anemia related to pt's surgery Maximiliano Jorgensen Md - 05/2008 7:46 PM PSTOrthopedics Note: Notified by nurse that patient had a drop in systolic BP today to the 60's and has been tac hycardic. She has also had decreased urine output today. She was seen by Dr. Jackson while I was in the OR and her CPAP was restarted and her O2 sats returned to normal. Her IVF was a lso restarted. I went to see the patient and she was sleeping with CPAP on and O2 sats at 99%. I woke her up and had her keep the CPAP off for 5 minutes and her O2 sats stayed >95% while she was aw sawyer and talking but she falls asleep easily and once she fell asleep without the CPAP on her sats dropped to 85%. When I woke her back up her sats returned to >95%. She has a long hx of sleep apnea and asthma and she uses CPAP at home. I think her desaturation is consisten t with her sleep apnea and she should keep her CPAP on for now. Due to her somnolence we wi ll decrease her narcotics. Orthostatics were checked and in going from lying to sitting her pulse went from 90 to 115 indicating that her intravascular volume is low. She has likely 3rd spaced a lot of her flu id. I repeated her Hct and it is now up to 29 this evening from 27 this morning but these are d own from 39 pre-op. Her tachycardia and hypotension and positive orthostatics are likely du e to low intravascular volume and her relative acute blood loss anemia may also be contribut ing. For now I will give her an IV fluid bolus (1000ml over 2 hours) and see if this helps the situation. If she continues to be tachycardic we will transfuse with PRBCs. I have notified Dr. Justin (night float) about her condition and he is aware of the possibil ity of transfusion if needed. Maximiliano Jorgensen Md - 6:45 AM PST Orthopaedic Surgery Progress Note Hospital Day: 1 Diagnosis: R hip osteoarthritis, R greater trochanter osteotomy non-union, R hip heterotopi c ossification formation Treatment: Primary R JUAN DAVID, R greater trochanter osteotomy non-union ORIF and autologous bone grafting, R hip heterotopic ossification excision POD #1 S: Painful on RLE, says the Morphine is giving her headaches O: Last Vitals: BP 108/65 | Pulse 111 | Temp 37 C (98.6 F) | Resp 15 | Wt 114.7 kg (252 lb 13.9 oz) | SpO2 98% 24 Hour Vital Min/Max: Systolic (24hrs), Av mmHg, Min:108 mmHg, Max:138 mmHg Diastolic (24hrs), Av mmHg, Min:65 mmHg, Max:86 mmHg Pulse Av.5 Min: 80 Max: 111 Temp Av.9 C (98.4 F) Min: 36.4 C (97.5 F) Max: 37.6 C (99.7 F) Resp Av.2 Min: 10 Max: 21 SpO2 Av.9 % Min: 88 % Max: 99 % Intake/Output Summary (Last 24 hours) at 09/07 646 Last data filed at 09/07 600 Gross per 24 hour Intake 6830 ml Output 4197 ml Net 2633 ml Physical Exam: Gen: NAD, AAOx3 but dozes off during exam RLE: Dressing C/D/I. Hvac intact with 120ml serosanguinous drainage. +ADF, APF, EHL. ROBY T medial, lateral, dorsal, plantar foot and 1st DWS. 2+ DP/PT pulses. R hip xray shows greater trochanter fixation in good position, JUAN DAVID implant in some degree o f varus but hip also looks rotated on this view so some of the varus appearance may be due t o this. A: S/P Primary R JUAN DAVID, R greater trochanter osteotomy non-union ORIF and autologous bone grafti ng, R hip heterotopic ossification excision. Mildly tachycardic this morning. May be due t o acute blood loss anemia but labs are not back yet to tell for sure. P: -WBAT RLE, posterior hip precautions, greater trochanter precautions -PT/OT -ASA 325mg PO BID x 6 wks, SCD, PRISCILLA -Radiation oncology consult called for prophylaxis against heterotopic ossification with s hielding of components and bone graft site -CBC, BMP pending -Will change morphine to dilaudid -D/C angulo today -Hvac removed today -Change dressing on POD #2 -Anticipate D/C SNF on POD #3 Addendum: Error in my note regarding weight bearing status. She should be TDWB RLE and not WBAT.Elec tronically signed by Maximiliano Chisholm Md at 09/07/2008 1:37 PM Maximiliano Jorgensen Md - 09/06/2008 6: 59 PM PSTOrthopaedic Surgery Progress Note - POC Hospital Day: 0 Diagnosis: R hip osteoarthritis, R greater trochanter osteotomy non-union, R hip heterotopi c ossification formation Treatment: Primary R JUAN DAVID, R greater trochanter osteotomy non-union ORIF and autologous bone grafting, R hip heterotopic ossification excision POD #0 S: Painful on RLE, drowsy O: Last Vitals: BP 132/81 | Pulse 88 | Temp 36.7 C (98.1 F) | Resp 14 | Wt 114.7 kg (25 2 lb 13.9 oz) | SpO2 99% Physical Exam: Gen: NAD, AAOx3 RLE: Dressing C/D/I. Hvac intact with mild serosanguinous drainage. +ADF, APF, EHL. SILT medial, lateral, dorsal, plantar foot and 1st DWS. 2+ DP/PT pulses. R hip xray shows greater trochanter fixation in good position, JUAN DAVID implant in some degree o f varus but hip also looks rotated on this view so some of the varus appearance may be due t o this. A: S/P Primary R JUAN DAVID, R greater trochanter osteotomy non-union ORIF and autologous bone grafti ng, R hip heterotopic ossification excision P: -Ancef x 24 hrs -WBAT RLE, posterior hip precautions, greater trochanter precautions -PT/OT -ASA 325mg PO BID x 6 wks, SCD, PRISCILLA -Radiation oncology consult called for prophylaxis against heterotopic ossification with s hielding of components and bone graft site -D/C angulo POD #1 -D/C Hvac on POD #1 -Change dressing on POD #2 -Anticipate D/C SNF on POD #3 documented in this encounter Plan of Treatment Not on filedocumented as of this encounter Procedures + +--------+ + + + | Procedure Name | Priori | Date/Time | Associated Diagnosis | Comments | | | ty | | | | + +--------+ + + + | BASIC METABOLIC SET | Routin | 09/09/2008 | | Results for this | | (NA, K, CL, TCO2, | e | 7:31 AM | | procedure are in the | | BUN, CR, GLU, CA) | | PST | | results section. | + +--------+ + + + | CBC ONLY | Routin | 09/09/2008 | | Results for this | | | e | 7:31 AM | | procedure are in the | | | | PST | | results section. | + +--------+ + + + | CBC ONLY | Routin | 09/08/2008 | | Results for this | | | e | 4:50 PM | | procedure are in the | | | | PST | | results section. | + +--------+ + + + | TYPE AND SCREEN | Routin | 09/08/2008 | | Results for this | | | e | 5:50 AM | | procedure are in the | | | | PST | | results section. | + +--------+ + + + | CBC ONLY | Routin | 09/08/2008 | | Results for this | | | e | 5:01 AM | | procedure are in the | | | | PST | | results section. | + +--------+ + + + | RESP CARE THERAPY | Routin | 09/08/2008 | | Results for this | | | e | 3:28 AM | | procedure are in the | | | | PST | | results section. | + +--------+ + + + | RESP CARE THERAPY | Routin | 09/08/2008 | | Results for this | | | e | 12:15 AM | | procedure are in the | | | | PST | | results section. | + +--------+ + + + | CBC ONLY | Routin | 09/07/2008 | | Results for this | | | e | 7:11 PM | | procedure are in the | | | | PST | | results section. | + +--------+ + + + | CBC ONLY | Urgent | 09/07/2008 | | Results for this | | | | 7:06 PM | | procedure are in the | | | | PST | | results section. | + +--------+ + + + | BASIC METABOLIC SET | Routin | 09/07/2008 | | Results for this | | (NA, K, CL, TCO2, | e | 8:30 AM | | procedure are in the | | BUN, CR, GLU, CA) | | PST | | results section. | + +--------+ + + + | CBC ONLY | Routin | 09/07/2008 | | Results for this | | | e | 8:30 AM | | procedure are in the | | | | PST | | results section. | + +--------+ + + + | RESP CARE THERAPY | Routin | 09/07/2008 | | Results for this | | | e | 3:45 AM | | procedure are in the | | | | PST | | results section. | + +--------+ + + + | RESP CARE THERAPY | Routin | 09/07/2008 | | Results for this | | | e | 12:36 AM | | procedure are in the | | | | PST | | results section. | + +--------+ + + + | RESP CARE THERAPY | Routin | 09/06/2008 | | Results for this | | | e | 10:30 PM | | procedure are in the | | | | PST | | results section. | + +--------+ + + + | RESP CARE THERAPY | Routin | 09/06/2008 | | Results for this | | | e | 7:38 PM | | procedure are in the | | | | PST | | results section. | + +--------+ + + + | X-RAY PELVIS 1 VIEW | Urgent | 09/06/2008 | | Results for this | | | | 2:59 PM | | procedure are in the | | | | PST | | results section. | + +--------+ + + + | ANESTHESIA/SEDATION | | 09/06/2008 | | Results for this | | | | 12:00 AM | | procedure are in the | | | | PST | | results section. | + +--------+ + + + | OPERATION RECORD | | 09/06/2008 | | Results for this | | | | 12:00 AM | | procedure are in the | | | | PST | | results section. | + +--------+ + + + documented in this encounter Results BASIC METABOLIC SET (NA, K, CL, TCO2, BUN, CR, GLU, CA) (09/09/2008 7:31 AM PST) + + + + + + | Component | Value | Ref Range | Performed | Pathologist | | | | | At | Signature | + + + + + + | GLUCOSE, | 89 | 60 - 99 mg/dL | [facility] [...] TOTAL CO2, | 29 | 23 - 31 mmol/L | [facility] [...] DEPARTMENT OF | [address] | [place] [address] | | | PATHOLOGY | [address] | | | + + + + + | [facility] DEPARTMENT OF | [address] | [place] [address] | | | PATHOLOGY | [address] | | | + + + + + CBC ONLY (09/09/2008 7:31 AM PST) + + + + + [...] + + + | RED CELL | 3.54 (L) | 4.00 - 5.20 | [facility] | | | COUNT | | M/cu mm | DEPARTMENT | | | | | | OF | | | | | | PATHOLOGY | | + + + + + + | HEMOGLOBIN | 10.0 (L) | 12.0 - 16.0 | [facility] | | | | | g/dL | DEPARTMENT | | | | | | OF | | | | | | PATHOLOGY | | + + + + + + | HEMATOCRIT | 30.5 (L) | 36.0 - 46.0 % | [facility] | | | | | | DEPARTMENT | | | | | | OF | | | | | | PATHOLOGY | | + + + + + + | MCV | 86.2 | 80.0 - 96.0 fL | [facility] [...] + + + + | PLATELET | 372 | 150 - 400 K/cu | [facility] [...] | + + + + + | [facility] DEPARTMENT OF | [address] | [place] [address] | | | PATHOLOGY | [address] | | | + + + + + | [facility] DEPARTMENT OF | [address] | [place] [address] | | | PATHOLOGY | [address] | | | + + + + + CBC ONLY (09/08/2008 4:50 PM PST) + + + + + + | Component | Value | Ref Range | Performed | Pathologist | | | | | At | Signature | + + + + + + | WHITE CELL | 11.9 (H) | 4.4 - 11.0 K/cu | [facility] | | | COUNT | | mm | DEPARTMENT | | | | | | OF | | | | | | PATHOLOGY | | + + + + + + | RED CELL | 3.67 (L) | 4.00 - 5.20 | [facility] | | | COUNT | | M/cu mm | DEPARTMENT | | | | | | OF | | | | | | PATHOLOGY | | + + + + + + | HEMOGLOBIN | 10.5 (L) | 12.0 - 16.0 | [facility] | | | | | g/dL | DEPARTMENT | | | | | | OF | | | | | | PATHOLOGY | | + + + + + + | HEMATOCRIT | 31.3 (L) | 36.0 - 46.0 % | [...] + + + + | PLATELET | 355 | 150 - 400 K/cu | [facility] [...] + + + | [facility] | [address] | [place] [address] | | | PATHOLOGY | [address] | | | + + + + + | [facility] | [address] | [place] [address] | | | PATHOLOGY | [address] | | | + + + + + TYPE AND SCREEN (09/08/2008 5:50 AM PST) + + + + [...] | + + + + + | [facility] DEPARTMENT OF | [address] [address] | [place] [address] | | | PATHOLOGY | [address] | | | + + + + + | [facility] DEPARTMENT OF | [address] [facility] [address] | [place] [address] | | | PATHOLOGY | [address] | | | + + + + + CBC ONLY (09/08/2008 5:01 AM PST) + + + + + [...] | RED CELL | See cmnt | 4.00 - 5.20 | [facility] | | | COUNT | | M/cu mm | DEPARTMENT | | | | | | OF | | | | | | PATHOLOGY | | + + + + + + | HEMOGLOBIN | See cmnt | 12.0 - 16.0 | [facility] | | | | | g/dL | DEPARTMENT | | | | | | OF | | | | | | PATHOLOGY | | + + + + + + | HEMATOCRIT | See cmnt | 36.0 - 46.0 % | [facility] [...] Performed At | + + + | Patient unavailable, specimen not obtained | [facility] | | | DEPARTMENT OF | | | PATHOLOGY | + + + + + + + + | Performing | Address | City/State/Zipcode | Phone Number | | Organization | | | | + + + + + | [facility] DEPARTMENT OF | [address] | [place] [address] | | | PATHOLOGY | [address] | | | + + + + + | [facility] DEPARTMENT OF | [address] | [place] [address] | | | PATHOLOGY | [address] | | | + + + + + RESP CARE THERAPY (09/08/2008 3:28 AM PST) + + + + + + | Component | Value | Ref Range | Performed | Pathologist | | | | | At | Signature | + + + + + + | RESPIRATORY | Nasal cannula at 5 | | [facility] | | | CARE | LPM.Electronically | | RESPIRATORY | | | | Signed by: Britt Lynn, | | THERAPY | | | | BANDOLE[employer] STRAIGHT[employer] STAMPER | | | | + + + + + + + + | Specimen | + + | | + + + + + | Narrative | Performed At | + + + | Ordered by TYRONE COLBY | [facility] | | | RESPIRATORY | | | THERAPY | + + + + + + + + | Performing | Address | City/State/Zipcode | Phone Number | | Organization | | | | + + + + + | [facility] RESPIRATORY | [address] | [place], [place] | | | THERAPY | [address] | [address] | | + + + + + | [facility] RESP[facility]ORY | [address] | [place], [place] | | | THERAPY | [address] | [address] | | + + + + + RESP CARE THERAPY (09/08/2008 12:15 AM PST) + + + + + + | Component | Value | Ref Range | Performed | Pathologist | | | | | At | Signature | + + + + + + | RESPIRATORY | Home CPAP/BiLevel check | | [facility] | | | CARE | and patient | | RESPIRATORY | | | | assesment:This is a | | THERAPY | | | | routine check of the | | | | | | home CPAP device.. The | | | | | | device is not in useat | | | | | | this time, The patient | | | | | | is not yet ready to go | | | | | | to sleep.Electronically | | | | | | Signed by: Britt yLnn, | | | | | | BANDOLEER STRAIGHTENER STAMPER | | | | + + + + + + + + | Specimen | + + | | + + + + + | Narrative | Performed At | + + + | Ordered by an unspecified provider. | [facility] | | | RESPIRATORY | | | THERAPY | + + + + + + + + | Performing | Address | City/State/Zipcode | Phone Number | | Organization | | | | + + + + + | [facility] RESPIRATORY | [address] | [place], [place] | | | THERAPY | [address] | [address] | | + + + + + | [facility] RESP[facility]AT[facility] | [address] | [place], [place] | | | THERAPY | [address] | [address] | | + + + + + CBC ONLY (09/07/2008 7:11 PM PST) + +---------+ + + + | Component | Value | Ref Range | Performed | Pathologist | | | | | At | Signature | + +---------+ + + + | WHITE CELL | Dup req | 4.4 - 11.0 K/cu | [facility] | | | COUNT | | mm | DEPARTMENT | | | | | | OF | | | | | | PATHOLOGY | | + +---------+ + + + | RED CELL | Dup req | 4.00 - 5.20 | [facility] | | | COUNT | | M/cu mm | DEPARTMENT | | | | | | OF | | | | | | PATHOLOGY | | + +---------+ + + + | HEMOGLOBIN | Dup req | 12.0 - 16.0 | [facility] | | | | | g/dL | DEPARTMENT | | | | | | OF | | | | | | PATHOLOGY | | + +---------+ + + + | HEMATOCRIT | Dup req | 36.0 - 46.0 % | [facility] | | | | | | DEPARTMENT | | | | | | OF | | | | | | PATHOLOGY | | + +---------+ + + + | MCV | Dup req | 80.0 - 96.0 fL | [facility] | | | | | | DEPARTMENT | | | | | | OF | | | | | | PATHOLOGY | | + +---------+ + + + | MCHC | Dup req | 33.4 - 35.5 | [facility] | | | | | g/dL | DEPARTMENT | | | | | | OF | | | | | | PATHOLOGY | | + +---------+ + + + | RDW | Dup req | 11.5 - 15.0 % | [facility] | | | | | | DEPARTMENT | | | | | | OF | | | | | | PATHOLOGY | | + +---------+ + + + | PLATELET | Dup req | 150 - 400 K/cu | [facility] [...] | + + + + + | [facility] DEPARTMENT OF | [address] | [place] [address] | | | PATHOLOGY | [address] | | | + + + + + | [facility] DEPARTMENT OF | [address] [facility] [address] | [place] [address] | | | PATHOLOGY | [address] | | | + + + + + CBC ONLY (09/07/2008 7:06 PM PST) + + + + + [...] + + + | RED CELL | 3.47 (L) | 4.00 - 5.20 | [facility] | | | COUNT | | M/cu mm | DEPARTMENT | | | | | | OF | | | | | | PATHOLOGY | | + + + + + + | HEMOGLOBIN | 9.9 (L) | 12.0 - 16.0 | [facility] | | | | | g/dL | DEPARTMENT | | | | | | OF | | | | | | PATHOLOGY | | + + + + + + | HEMATOCRIT | 29.6 (L) | 36.0 - 46.0 % | [...] + + + + | PLATELET | 361 | 150 - 400 K/cu | [facility] [...] + + + | [facility] | [address] [facility] | [place] [address] | | | PATHOLOGY | [address] | | | + + + + + | [facility] | [address] [facility] [address] | [place] [address] | | | PATHOLOGY | [address] | | | + + + + + CBC ONLY (09/07/2008 8:30 AM PST) + + + + + [...] + + + | RED CELL | 3.28 (L) | 4.00 - 5.20 | [facility] | | | COUNT | | M/cu mm | DEPARTMENT | | | | | | OF | | | | | | PATHOLOGY | | + + + + + + | HEMOGLOBIN | 9.5 (L) | 12.0 - 16.0 | [facility] | | | | | g/dL | DEPARTMENT | | | | | | OF | | | | | | PATHOLOGY | | + + + + + + | HEMATOCRIT | 27.8 (L) | 36.0 - 46.0 % | [facility] | | | | | | DEPARTMENT | | | | | | OF | | | | | | PATHOLOGY | | + + + + + + | MCV | 85.0 | 80.0 - 96.0 fL | [facility] | | | | | | DEPARTMENT | | | | | | OF | | | | | | PATHOLOGY | | + + + + + + | MCHC | 34.2 | 33.4 - 35.5 | [facility] | [...] + + + + | PLATELET | 315 | 150 - 400 K/cu | [facility] [...] | + + + + + | [facility] | [address] | [place] [address] | | | PATHOLOGY | [address] | | | + + + + + | [facility] | [address] | [place] [address] | | | PATHOLOGY | [address] | | | + + + + + BASIC METABOLIC SET (NA, K, CL, TCO2, BUN, CR, GLU, CA) (09/07/2008 8:30 AM PST) + +---------+ + + + | Component | Value | Ref Range | Performed | Pathologist | | | | | At | Signature | + +---------+ + + + | GLUCOSE, | 131 (H) | 60 - 99 mg/dL | [facility] | | | PLASMA | | | DEPARTMENT | | | (LAB) | | | OF | | | | | | PATHOLOGY | | + +---------+ + + + | BUN, PLASMA | 2 (L) | 6 - 20 mg/dL | [facility] | | | (LAB) | | | DEPARTMENT | | | | | | OF | | | | | | PATHOLOGY | | + +---------+ + + + | CREATININE | 0.61 | 0.60 - 1.10 | [facility] | [...] +---------+ + + + | CHLORIDE, | 103 | 97 - 108 mmol/L | [facility] | | | PLASMA | | | DEPARTMENT | | | (LAB) | | | OF | | | | | | PATHOLOGY | | + +---------+ + + + | TOTAL CO2, | 28 | 23 - 31 mmol/L | [facility] | | | PLASMA | | | DEPARTMENT | | | (LAB) | | | OF | | | | | | PATHOLOGY | | + +---------+ + + + | CALCIUM, | 7.9 (L) | 8.6 - 10.2 | [facility] [...] Performed At | + + + | New Creatinine Reference ranges effective 08. | [facility] | | | DEPARTMENT OF | | | PATHOLOGY | + + + + + + + + | Performing | Address | City/State/Zipcode | Phone Number | | Organization | | | | + + + + + | [facility] | [address] [address] | [place] [address] | | | PATHOLOGY | [address] | | | + + + + + | [facility] | [address] [facility] [address] | [place] [address] | | | PATHOLOGY | [address] | | | + + + + + RESP CARE THERAPY (09/07/2008 3:45 AM PST) + + + + + + | Component | Value | Ref Range | Performed | Pathologist | | | | | At | Signature | + + + + + + | RESPIRATORY | Home CPAP/BiLevel check | | [facility] | | | CARE | and patient | | RESPIRATORY | | | | assesment:This is a | | THERAPY | | | | routine check of the | | | | | | home BiLevel device. The | | | | | | breath sounds | | | | | | arediminished in the | | | | | | bases . No supplemental | | | | | | 02 is in use. HR = 86 | | | | | | RR= 16SPO2= 94 | | | | | | %Electronically Signed | | | | | | by: Nighat Recio, | | | | | | BANDOLEER STRAIGHTENER STAMPER | | | | + + + + + + + + | Specimen | + + | | + + + + + | Narrative | Performed At | + + + | Ordered by an unspecified provider. | [facility] | | | RESPIRATORY | | | THERAPY | + + + + + + + + | Performing | Address | City/State/Zipcode | Phone Number | | Organization | | | | + + + + + | [facility] RES[facility] | [address] | [place], [place] | | | THERAPY | [facility] | [address] | | + + + + + | [facility] | [address] | [place], [place] | | | THERAPY | [facility] | [address] | | + + + + + RESP CARE THERAPY (09/07/2008 12:36 AM PST) + + + + + + | Component | Value | Ref Range | Performed | Pathologist | | | | | At | Signature | + + + + + + | RESPIRATORY | Nasal cannula at 3 | | [facility] | | | CARE | LPM.Electronically | | RESPIRATORY | | | | Signed by: Nighat | | THERAPY | | | | Hemal, BANDOLE[employer] STRAIGHTENER STAMPER | | | | + + + + + + + + | Specimen | + + | | + + + + + | Narrative | Performed At | + + + | Ordered by TYRONE COLBY | [facility] | | | RESPIRATORY | | | THERAPY | + + + + + + + + | Performing | Address | City/State/Zipcode | Phone Number | | Organization | | | | + + + + + | [facility] | [address] | [place], [place] | | | THERAPY | [address] | [address] | | + + + + + | [facility] | [address] | [place], [place] | | | THERAPY | [address] [facility] | [address] | | + + + + + RESP CARE THERAPY (09/06/2008 10:30 PM PST) + + + + + + | Component | Value | Ref Range | Performed | Pathologist | | | | | At | Signature | + + + + + + | RESPIRATORY | Home CPAP/BiLevel check | | [facility] | | | CARE | and patient | | RESPIRATORY | | | | assesment:This is a | | THERAPY | | | | routine check of the | | | | | | home BiLevel device. The | | | | | | breath sounds | | | | | | arediminished in the | | | | | | bases . No supplemental | | | | | | 02 is in use. HR = 89 | | | | | | RR= 15SPO2= 98 | | | | | | %Electronically Signed | | | | | | by: Nighat Recio, | | | | | | BANDOLEER STRAIGHTENER STAMPER | | | | + + + + + + + + | Specimen | + + | | + + + + + | Narrative | Performed At | + + + | Ordered by an unspecified provider. | [facility] | | | RESPIRATORY | | | THERAPY | + + + + + + + + | Performing | Address | City/State/Zipcode | Phone Number | | Organization | | | | + + + + + | [facility] | [address] [facility] [address] | [place], [place] | | | THERAPY | [facility] | [address] | | + + + + + | [facility] | [address] [facility] [address] | [place], [place] | | | THERAPY | [facility] | [address] | | + + + + + RESP CARE THERAPY (09/06/2008 7:38 PM PST) + + + + + + | Component | Value | Ref Range | Performed | Pathologist | | | | | At | Signature | + + + + + + | RESPIRATORY | : History and | | [facility] | | | CARE | Assessment: HETEROTIOPIC | | RESPIRATORY | | | | OSSIFICATOINPulmonary | | THERAPY | | | | problems: Current | | | | | | problems include, | | | | | | Reactive Airways | | | | | | Diseaseobstructive sleep | | | | | | apnea .Smoking history: | | | | | | The patient currently | | | | | | smokes less than one | | | | | | pack per day.Results of | | | | | | recent Chest X-ray: were | | | | | | not available. No CXR | | | | | | has been takenwithin the | | | | | | last 72 hours.Pain: | | | | | | Patients pain assessed | | | | | | and was a 2 on a scale | | | | | | of 0-10.Oxygen | | | | | | requirement: Patient was | | | | | | on room air with an | | | | | | oxygen saturation of | | | | | | 94%.Heart rate: 88 beats | | | | | | per minuteRespiratory | | | | | | rate: 14 breaths per | | | | | | minuteTemperature: 36.7 | | | | | | ? | | | | | | C.Breathsounds:diminishe | | | | | | d in the bases .Cough | | | | | | and sputum | | | | | | production:Patient had | | | | | | no cough at this | | | | | | time.Treatments GivenNo | | | | | | therapy indicated at | | | | | | this time.Respiratory | | | | | | Acuity [...] | | | | | | bronchodilator | | | | | | protocol.Electronically | | | | | | Signed by: Nighat | | | | | | FRANKLYN Recio | | | | + + + + + + + + | Specimen | + + | | + + + + + | Narrative | Performed At | + + + | Ordered by an unspecified provider. | [facility] | | | RESPIRATORY | | | THERAPY | + + + + + + + + | Performing | Address | City/State/Zipcode | Phone Number | | Organization | | | | + + + + + | [facility] | [address] | [place], [place] | | | THERAPY | [address] | [address] | | + + + + + | [facility] | [address] | [place], [place] | | | THERAPY | [address] [facility] | [address] | | + + + + + X-RAY PELVIS 1 VIEW (09/06/2008 2:59 PM PST) + + + + + + | Component | Value | Ref Range | Performed | Pathologist | | | | | At | Signature | + + + + + + | PELVIS 1 | STUDY: signle view of | | | | | VIEW | the pelvis | | | | | | from:09/06/08COMPARISON: | | | | | | 2 views of the right | | | | | | hipINDICATION: 48 year | | | | | | old female status post | | | | | | JUAN DAVID.FINDINGS:There is a | | | | | | noncemented right total | | | | | | hip arthroplasty in near | | | | | | anatomicalignment. Also | | | | | | seen is a greater | | | | | | trochanteric fixation | | | | | | plate withcerclage wires | | | | | | and two | | | | | | interfragmentary screws | | | | | | transfixing | | | | | | thedisplaced greater | | | | | | trochanteric fracture in | | | | | | near anatomic | | | | | | alignment.There is no | | | | | | evidence of hardware | | | | | | failure. The left | | | | | | hemipelvis ispartially | | | | | | excluded. Surgical | | | | | | clips and soft tissue | | | | | | gasare noted inthe | | | | | | superior right thigh | | | | | | consistent with recent | | | | | | surgery.IMPRESSION:1.Non | | | | | | cemented right total hip | | | | | | arthroplasty in near | | | | | | anatomic | | | | | | alignmentwithout | | | | | | hardware complication.2. | | | | | | Greater trochanteric | | | | | | fixation plate with in | | | | | | near anatomicalignment | | | | | | without hardware | | | | | | complication.I have | | | | | | personally viewed this | | | | | | procedure/exam and | | | | | | reviewed this | | | | | | report.Author: | | | | | | Malcom THOMASReviewer: | | | | | | MOSHE | | | | | | [...] | | + +---------+ + + | [facility] DEPARTMENT OF | | | | | RADIOLOGY | | | | + +---------+ + + ANESTHESIA/SEDATION (09/06/2008 12:00 AM PST) + + + | Narrative | Performed At | + + + | | | + + + + + | Procedure Note | + + | Other, Faculty - 09/06/2008 12:00 AM PST | + + OPERATION RECORD (09/06/2008 12:00 AM PST) + + + | Narrative | Performed At | + + + | [id number] | | | [id number] [facility] | | | [place] [id number] Date: | | | 09/06/2008 Attending Surgeon: | | | Tyrone Colby M.D. Nicker And Breaker(s): | | | Maximiliano Chisholm M.D. | | | Lizette Wiggins. Preoperative | | | Diagnosis(es): 1. Right hip osteoarthritis. 2. 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 3. 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 Postoperative Diagnosis(es): 1. Right | | | hip osteoarthritis. 2. Nonunion of right greater trochanter. | | | 3. Extensive right hip heterotopic ossification. | | | Procedure: 1. Conversion of previous hip surgery to Right total | | | hip arthroplasty with complexity modifier. 2. Excision of | | | extensive heterotopic ossification from the right hip. 3. Open | | | reduction internal fixation with autogenous bone grafting of | | | right greater trochanter nonunion. Implants: 1. | | | [employer] BHR acetabular cup, size 54 mm outer diameter | | | with 40 mm inner diameter. 2. [employer] femoral stem, | | | size #4 with high offset. 3. A #40 mm BHR modular femoral head | | | with a +0 neck length. 4. [employer] long greater | | | trochanteric cable plate with four 1.8 mm cables. 5. | | | Two partially-threaded 4.0 mm cannulated screws with washers. | | | Anesthesia: General. Complications: None. | | | Indications: Ms. Galdamez is a 48-year-old female with a history of | | | progressive pain and disability related to her right hip. She has | | | undergone multiple previous surgeries on her right hip. Her | | | first surgery consisted of surgical dislocation with the | | | trans-trochanteric approached. The trochanteric osteotomy went | | | onto a nonunion. The patient also subsequently developed | | | intra-articular wound infection. She had her hardware taken out. | | | It was subsequently treated with long-term IV antibiotics. She has | | | since resolved her infection. She went on to develop severe | | | osteoarthritis within the joint. 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 | | | She also developed extensive heterotopic ossification. | | | Preoperative CT scan was obtained to identify the exact location | | | of the heterotopic bone. It was most prominent laterally but also | | | anteriorly along the acetabular rim and extending up into the | | | gluteus medius muscle extensively. The patient has chronically used | | | a 1-3/4 inch lift in her right shoe for an apparent leg-length | | | discrepancy, although radiographically, and clinically, her leg | | | lengths are approximately equal. It was explained to her at great | | | length what the apparent discrepancy implies. She was counseled | | | that we would not attempt to lengthen her leg. We also counseled | | | her that due to the chronic shortening of her abductor mechanism | | | with the significant gap in the nonunion that it may be difficult | | | to get a meaningful repair of that nonunion. She was counseled | | | that she then may very likely have a long-term abductor lurch and | | | that she would require extensive therapy postoperatively to work on | | | maximizing strength. The patient expressed understanding of all | | | these complicating issues. She understood that she was at | | | increased risk for repeat infection, also at increased risk for major | | | neurovascular injury. She understood these risks and wished to | | | proceed with the above-listed procedure. Procedure: The | | | patient was identified in the preoperative holding area and the | | | incision site marked by the surgeon. The patient was transferred | | | into the operating room. General anesthesia was induced and | | | endotracheal tube placed; 2 g of cefazolin were given as antibiotic | | | prophylaxis. The patient was placed in the left lateral | | | decubitus position with a hip gang head saw operator. The right hind quadrant and | | | lower extremity were prepped and draped in a sterile and free | | | fashion. The surface landmarks were identified, and an incision | | | was marked out for a posterior approach to the hip. The patient | | | had the lateral horn of heterotopic ossification that was easily | | | palpable in the subcutaneous tissue despite her morbid obesity. | | | Incision was made directly over this area. The previous | | | incisional scar was transverse, so it was crossed at ~90 degrees and | | | not incorporated. It should be noted that throughout the | | | procedure, the exposure and approach were markedly complicated by her | | | previous surgeries, her nonunion and her ectopic bone. The | | | subcutaneous fat overlying the heterotopic bone was atrophic and | | | stuck down to the lateral HO formation. Fascial planes were | | | recreated where possible. The fascia was incised in line with the | | | skin incision. The most prominent lateral heterotopic bone was | | | extending out in the area of the vastus lateralis origin and | | | tracking laterally and distally. The soft tissues were dissected | | | free using Bovie electrocautery. The lateral bone was then | | | excised using a series of osteotomes, rongeur and rasps. Again, | | | this was most extensive laterally, but it did extend anteriorly as | | | well. The entire formation was quite irregular. Once we were | | | temporarily satisfied with This resection, the cut bony surfaces | | | were packed with bone wax to minimize blood loss. Attention | | | was then returned towards recreating subfascial planes anteriorly and | | | posteriorly. A Charnley retractor was placed with care taken to | | | protect the sciatic nerve. The nonunion site was next encountered. | | | There were several islands of ectopic bone anteriorly which were | | | excised as well as posteriorly. The nonunion site was developed, | | | and the soft tissue was debrided. We then started developing the | | | posterior soft tissue flap. This was taken down en bloc off bone | | | incorporating the broad trapezoidal capsulotomy. The hip was then | | | dislocated. The femoral neck was cut in accordance with | | | preoperative templating. The head was removed. It was very | | | irregular in shape and completely denuded of cartilage. It was | | | irregular throughout the articular surface. The head was removed | | | and saved for later bone grafting of the nonunion site. The | | | reflected head of the rectus femoris was found to be scarred and | | | contracted. This was released off the acetabular rim to allow | | | anterior mobilization of the femur for exposure. Good retraction | | | was obtained on the acetabulum. There were few remnants of the | | | labrum, which were excised sharply. There were large medial | | | osteophytes obscuring the cotyloid fossa. Reaming was begun and | | | carried down to the true floor of the acetabulum and then | | | sequentially up to a size 54 mm reamer. We achieved an excellent | | | press fit with trial components of this size. There were several | | | cysts in the acetabulum which were curetted out and backfilled with | | | cancellous graft from the femoral head. The definitive cup was | | | then press fit into place in appropriate position. There were | | | large osteophytes anterosuperiorly and posteroinferiorly which were | | | removed with a broad osteotome, curettes, and rongeurs. Attention | | | was then returned towards the femur. The femoral canal was | | | entered with a box osteotome. We then sequentially broached up to | | | accept a size 4 Anthology component. We were rotationally very | | | stable at this size. Trial reduction reductions were performed, | | | and we settled on a +0 neck length. This was in agreement with | | | preoperative templating. She did have some impingement anteriorly, | | | which necessitated further removal of the anterior bone from the | | | pelvis. The trial components were removed, and the definitive | | | components were press fit into place. The hip was again reduced. | | | The impingement profile was improved. Attention was then | | | placed on trying to mobilize the greater trochanteric piece. This | | | required subfascial mobilization and release of a few fibrotic | | | bands within the gluteus medius. The trochanteric remnant was again | | | very irregular in shape. It took a good deal of time to try to | | | mobilize the fragment distally enough to where we felt we might be | | | able to achieve meaningful fixation. A Anthony Integral cable | | | plate with trochanteric claw was used to help further mobilize the | | | fragment with the claw placed proximally. The cables were placed | | | around the lesser trochanter and sequentially tensioned to further | | | mobilize the fragment. We were able to achieve length this way. | | | However, we were not able to achieve any rotational stability. | | | Therefore, the cable plate was removed at this point. We then used | | | the bone reduction clamps to maintain the distalization of the | | | trochanteric fragment and then provisionally held it with two 4.0 | | | cannulated partially-threaded screws across the nonunion site. | | | There was considerable effort required to keep the fragment | | | lateral enough to avoid trochanteric impingement post fixation. | | | The cannulated screws were successful in provisionally holding | | | the reduction while we replaced the trochanteric cable plate. Four | | | 1.8 mm cables were passed inferior to the lesser trochanter and | | | through the various holes of the cable plate. Again, we | | | sequentially tensioned the cables to optimize placement, and the | | | remainder of the cancellous bone from the femoral head was then | | | used to bone graft further the nonunion site. We were able to | | | achieve some bony contact prior to grafting. This was greatly | | | enhanced by the bone grafting procedure. Bone tamps were used to | | | impact the grafts underneath the plate. There was a posterior lip | | | of the proximal fragment, which was then debrided with rongeur to | | | avoid impingement in external rotation. Upon completion of this | | | procedure, we were satisfied that we had somewhat recreated fairly | | | normal proximal femoral anatomy. The wound was copiously | | | irrigated with pulsatile lavage. The posterior soft tissue | | | structures were too contracted to allow for a meaningful repair. | | | The remainder of the wound was closed in layers over a medium | | | Hemovac drain in a standard fashion, and a standard dressing was | | | applied. Plan will be to maintain trochanteric precautions with | | | touchdown weightbearing for approximately 8 weeks to allow healing | | | of the nonunion site. Once some healing is confirmed | | | radiographically, she will be able to begin on strengthening her | | | abductor complex with PT. No intraoperative complications were | | | appreciated. 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 All | | | these factors greatly complicated the total hip arthroplasty. | | | Surgical time was approximately 6 hours. For these reasons, the | | | complexity addendum is warranted. Tyrone Alcantar | | | [place]. [facility] [id number] / [id number] / [id number] / | | | | | + + + + + | Procedure Note | + + | Tyrone Colby MD - 09/06/2008 12:00 AM [facility] [id number] | | [id number] CHAD Osei | | [id number] Date: 09/06/2008 Attending Surgeon: Tyrone | | Ortiz Colby M.D. Nicker And Breaker(s): Maximiliano Chisholm M.D. | | Linh Wiggins Preoperative Diagnosis(es):1. Right hip | | osteoarthritis.2. Nonunion of right greater trochanter.3. 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 Postoperative Diagnosis(es):1. Right hip | | osteoarthritis.2. Nonunion of right greater trochanter.3. 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 Procedure:1. Conversion of previous hip surgery to Right | | total hip arthroplasty with complexity modifier.2. Excision of extensive heterotopic | | ossification from the right hip.3. Open reduction internal fixation with autogenous | | bone grafting of right greater trochanter nonunion. Implants:1. [employer] | | Nephew BHR acetabular cup, size 54 mm outer diameter with 40 mm inner diameter.2. | | Anthology femoral stem, size #4 with high offset.3. A #40 mm BHR modular femoral | | head with a +0 neck length.4. Anthony Integral long greater trochanteric cable plate | | with four 1.8 mm cables.5. Two partially-threaded 4.0 mm cannulated screws with | | washers. Anesthesia:General. Complications:None. Indications:Ms. Galdamez is a | | 48-year-old female with a history of progressive pain anddisability related to her right | | hip. She has undergone multiple previoussurgeries on her right hip. Her first surgery | | consisted of surgicaldislocation with the trans-trochanteric approached. The | | trochantericosteotomy went onto a nonunion. The patient also subsequently | | developedintra-articular wound infection. She had her hardware taken out. It | | wassubsequently treated with long-term IV antibiotics. She has since resolvedher | | infection. She went on to develop severe osteoarthritis within thejoint. She also had | | an a chronic nonunion of her greater trochanter withsevere abductor lurch. She also | | developed extensive heterotopicossification. Preoperative CT scan was obtained to | | identify the exactlocation of the heterotopic bone. It was most prominent laterally but | | alsoanteriorly along the acetabular rim and extending up into the gluteusmedius muscle | | extensively. The patient has chronically used a 1-3/4 inchlift in her right shoe for an | | apparent leg-length discrepancy, althoughradiographically, and clinically, her leg | | lengths are approximately equal.It was explained to her at great length what the | | apparent discrepancyimplies. She was counseled that we would not attempt to lengthen | | her leg.We also counseled her that due to the chronic shortening of her | | abductormechanism with the significant gap in the nonunion that it may be difficultto | | get a meaningful repair of that nonunion. She was counseled that shethen may very | | likely have a long-term abductor lurch and that shewould require extensive therapy | | postoperatively to work on maximizingstrength. The patient expressed understanding of | | all these complicatingissues. She understood that she was at increased risk for | | repeatinfection, also at increased risk for major neurovascular injury. Sheunderstood | | these risks and wished to proceed with the above-listedprocedure. Procedure:The patient | | was identified in the preoperative holding area and theincision site marked by the | | surgeon. The patient was transferred into theoperating room. General anesthesia was | | induced and endotracheal tubeplaced; 2 g of cefazolin were given as antibiotic | | prophylaxis. The patientwas placed in the left lateral decubitus position with a hip | | gang head saw operator. Theright hind quadrant and lower extremity were prepped and draped in asterile | | and free fashion. The surface landmarks were identified, and anincision was marked out | | for a posterior approach to the hip. The patienthad the lateral horn of heterotopic | | ossification that was easily palpablein the subcutaneous tissue despite her morbid | | obesity. Incision was madedirectly over this area. The previous incisional scar was | | transverse, so it was crossed at ~90 degrees and not incorporated. It should be noted | | that throughout the procedure,the exposure and approach were markedly complicated by her | | previoussurgeries, her nonunion and her ectopic bone. The subcutaneous fatoverlying | | the heterotopic bone was atrophic and stuck down to the lateralHO formation. Fascial | | planes were recreated where possible. The fasciawas incised in line with the skin | | incision. The most prominent lateralheterotopic bone was extending out in the area of | | the vastus lateralisorigin and tracking laterally and distally. The soft tissues | | weredissected free using Bovie electrocautery. The lateral bone was thenexcised using a | | series of osteotomes, rongeur and rasps. Again, this wasmost extensive laterally, but | | it did extend anteriorly as well. The entireformation was quite irregular. Once we | | were temporarily satisfied withThis resection, the cut bony surfaces were packed with | | bone wax to minimize bloodloss. Attention was then returned towards recreating | | subfascial planesanteriorly and posteriorly. A Charnley retractor was placed with | | caretaken to protect the sciatic nerve. The nonunion site was nextencountered. There | | were several islands of ectopic bone anteriorly whichwere excised as well as | | posteriorly. The nonunion site was developed, andthe soft tissue was debrided. We then | | started developing the posteriorsoft tissue flap. This was taken down en bloc off bone | | incorporating thebroad trapezoidal capsulotomy. The hip was then dislocated. The | | femoralneck was cut in accordance with preoperative templating. The head wasremoved. | | It was very irregular in shape and completely denuded ofcartilage. It was irregular | | throughout the articular surface. The headwas removed and saved for later bone grafting | | of the nonunion site. The reflected head of therectus femoris was found to be scarred | | and contracted. This was releasedoff the acetabular rim to allow anterior mobilization | | of the femur forexposure. Good retraction was obtained on the acetabulum. There were | | fewremnants of the labrum, which were excised sharply. There were largemedial | | osteophytes obscuring the cotyloid fossa. Reaming was begun andcarried down to the true | | floor of the acetabulum and then sequentially upto a size 54 mm reamer. We achieved an | | excellent press fit with trialcomponents of this size. There were several cysts in the | | acetabulum whichwere curetted out and backfilled with cancellous graft from the | | femoralhead. The definitive cup was then press fit into place in appropriateposition. | | There were large osteophytes anterosuperiorly andposteroinferiorly which were removed | | with a broad osteotome, curettes, androngeurs. Attention was then returned towards the | | femur. The femoral canal was entered with a box osteotome. We then | | sequentiallybroached up to accept a size 4 Anthology component. We were | | rotationallyvery stable at this size. Trial reduction reductions were performed, andwe | | settled on a +0 neck length. This was in agreement with preoperativetemplating. She | | did have some impingement anteriorly, which necessitatedfurther removal of the anterior | | bone from the pelvis. The trial componentswere removed, and the definitive components | | were press fit into place. Thehip was again reduced. The impingement profile was | | improved. Attentionwas then placed on trying to mobilize the greater trochanteric | | piece. Thisrequired subfascial mobilization and release of a few fibrotic bands | | withinthe gluteus medius. The trochanteric remnant was again very irregular inshape. | | It took a good deal of time to try to mobilize the fragmentdistally enough to where we | | felt we might be able to achieve meaningfulfixation. A Anthony Integral cable plate with | | trochanteric claw was used tohelp further mobilize the fragment with the claw placed | | proximally. Thecables were placed around the lesser trochanter and sequentially | | tensionedto further mobilize the fragment. We were able to achieve length this | | way.However, we were not able to achieve any rotational stability. Therefore,the cable | | plate was removed at this point. We then used the bone reductionclamps to maintain the | | distalization of the trochanteric fragment and thenprovisionally held it with two 4.0 | | cannulated partially-threaded screwsacross the nonunion site. There was considerable | | effort required to keepthe fragment lateral enough to avoid trochanteric impingement | | postfixation. The cannulated screws were successful in provisionally holdingthe | | reduction while we replaced the trochanteric cable plate. Four 1.8 mmcables were passed | | inferior to the lesser trochanter and through thevarious holes of the cable plate. | | Again, we sequentially tensioned thecables to optimize placement, and the remainder of | | the cancellous bone fromthe femoral head was then used to bone graft further the | | nonunion site. Wewere able to achieve some bony contact prior to grafting. This was | | greatlyenhanced by the bone grafting procedure. Bone tamps were used to impactthe | | grafts underneath the plate. There was a posterior lip of the proximalfragment, which | | was then debrided with rongeur to avoid impingement inexternal rotation. Upon | | completion of this procedure, we were satisfiedthat we had somewhat recreated fairly | | normal proximal femoral anatomy. The wound was copiously irrigated with pulsatile | | lavage. The posteriorsoft tissue structures were too contracted to allow for a | | meaningfulrepair. The remainder of the wound was closed in layers over a mediumHemovac | | drain in a standard fashion, and a standard dressing was applied. Plan will be to | | maintain trochanteric precautions with touchdownweightbearing for approximately 8 weeks | | to allow healing of the nonunionsite. Once some healing is confirmed radiographically, | | she will be able tobegin on strengthening her abductor complex with PT. No | | intraoperativecomplications were appreciated. Complexity Addendum:The patient had a | | number of complicating issues including morbid obesity,multiple previous hip surgeries, | | previous infection, extensive heterotopicbone formation, and chronic nonunion of her | | greater trochanter. All thesefactors greatly complicated the total hip arthroplasty. | | Surgical time was approximately 6 hours. For these reasons,the complexity addendum is | | warranted. Tyrone Colby M.D. [facility] / [id number] / [id number] / [id number] /D: | | 09/06/2008T: 09/06/2008 | |anteriorly and posteriorly. A Charnley retractor was placed with care | |taken to protect the sciatic nerve. The nonunion site was next | |encountered. There were several islands of ectopic bone anteriorly which | |were excised as well as posteriorly. The nonunion site was developed, and | |the soft tissue was debrided. We then started developing the posterior | |soft tissue flap. This was taken down en bloc off bone incorporating the | |broad trapezoidal capsulotomy. The hip was then dislocated. The femoral | |neck was cut in accordance with preoperative templating. The head was | |removed. It was very irregular in shape and completely denuded of | |cartilage. It was irregular throughout the articular surface. The head | |was removed and saved for later bone grafting of the nonunion site. The reflected head of the | |rectus femoris was found to be scarred and contracted. This was released | |off the acetabular rim to allow anterior mobilization of the femur for | |exposure. Good retraction was obtained on the acetabulum. There were few | |remnants of the labrum, which were excised sharply. There were large | |medial osteophytes obscuring the cotyloid fossa. Reaming was begun and | |carried down to the true floor of the acetabulum and then sequentially up | |to a size 54 mm reamer. We achieved an excellent press fit with trial | |components of this size. There were several cysts in the acetabulum which | |were curetted out and backfilled with cancellous graft from the femoral | |head. The definitive cup was then press fit into place in appropriate | |position. There were large osteophytes anterosuperiorly and | |posteroinferiorly which were removed with a broad osteotome, curettes, and | |rongeurs. Attention was then returned towards the femur. | | | | | |The femoral canal was entered with a box osteotome. We then sequentially | |broached up to accept a size 4 Anthology component. We were rotationally | |very stable at this size. Trial reduction reductions were performed, and | |we settled on a +0 neck length. This was in agreement with preoperative | |templating. She did have some impingement anteriorly, which necessitated | |further removal of the anterior bone from the pelvis. The trial components | |were removed, and the definitive components were press fit into place. The | |hip was again reduced. The impingement profile was improved. | | | |Attention | |was then placed on trying to mobilize the greater trochanteric piece. This | |required subfascial mobilization and release of a few fibrotic bands within | |the gluteus medius. The trochanteric remnant was again very irregular in | |shape. It took a good deal of time to try to mobilize the fragment | |distally enough to where we felt we might be able to achieve meaningful | |fixation. A Anthony Integral cable plate with trochanteric claw was used to | |help further mobilize the fragment with the claw placed proximally. The | |cables were placed around the lesser trochanter and sequentially tensioned | |to further mobilize the fragment. We were able to achieve length this way. | |However, we were not able to achieve any rotational stability. Therefore, | |the cable plate was removed at this point. We then used the bone reduction | |clamps to maintain the distalization of the trochanteric fragment and then | |provisionally held it with two 4.0 cannulated partially-threaded screws | |across the nonunion site. There was considerable effort required to keep | |the fragment lateral enough to avoid trochanteric impingement post | |fixation. The cannulated screws were successful in provisionally holding | |the reduction while we replaced the trochanteric cable plate. Four 1.8 mm | |cables were passed inferior to the lesser trochanter and through the | |various holes of the cable plate. Again, we sequentially tensioned the | |cables to optimize placement, and the remainder of the cancellous bone from | |the femoral head was then used to bone graft further the nonunion site. We | |were able to achieve some bony contact prior to grafting. This was greatly | |enhanced by the bone grafting procedure. Bone tamps were used to impact | |the grafts underneath the plate. There was a posterior lip of the proximal | |fragment, which was then debrided with rongeur to avoid impingement in | |external rotation. Upon completion of this procedure, we were satisfied | |that we had somewhat recreated fairly normal proximal femoral anatomy. | | | | | |The wound was copiously irrigated with pulsatile lavage. The posterior | |soft tissue structures were too contracted to allow for a meaningful | |repair. The remainder of the wound was closed in layers over a medium | |Hemovac drain in a standard fashion, and a standard dressing was applied. | | | | | |Plan will be to maintain trochanteric precautions with touchdown | |weightbearing for approximately 8 weeks to allow healing of the nonunion | |site. Once some healing is confirmed radiographically, she will be able to | |begin on strengthening her abductor complex with PT. No intraoperative | |complications were appreciated. 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 All these | |factors greatly complicated the total hip arthroplasty. Surgical time was approximately 6 hours. For these reasons, | |the complexity addendum is warranted. | | | | | | | | | | | | | | | | | |Tyrone Colby M.D. | | | | | |[facility] / | |[id number] / [id number] / [id number] / | | | | | | | | | | | | | | | | | | | | | + + documented in this encounter Visit Diagnoses Not on filedocumented in this encounter Administered Medications + +--------+ +--------+------+------+ | Medication Order | MAR | Action | Dose | Rate | Site | | | Action | Date | | | | + +--------+ +--------+------+------+ | acetaminophen (aka TYLENOL) | Given | 09/09/20 | 650 mg | | | | tablet 650 mg 650 mg, oral, | | 08 12:00 | | | | | EVERY 4 HOURS, First dose on Mon | | PM PST | | | | | 09/06/08 at 1715, Until | | | | | | | Discontinued | | | | | | + +--------+ +--------+------+------+ +-------+ +--------+---+---+ | Given | 09/09/20 | 650 mg | | | | | 08 8:00 | | | | | | AM PST | | | | +-------+ +--------+---+---+ | Given | 09/09/20 | 650 mg | | | | | 08 4:00 | | | | | | AM PST | | | | +-------+ +--------+---+---+ +---+---+ | | | +---+---+ + +-------+ +--------+---+---+ | aspirin EC tablet 325 mg 325 | Given | 09/09/20 | 325 mg | | | | mg, oral, TWICE DAILY, First dose | | 08 9:00 | | | | | on 09/06/08 at 2100, Until | | AM PST | | | | | Discontinued | | | | | | + +-------+ +--------+---+---+ +-------+ +--------+---+---+ | Given | 09/08/20 | 325 mg | | | | | 08 10:00 | | | | | | PM PST | | | | +-------+ +--------+---+---+ | Given | 09/08/20 | 325 mg | | | | | 08 9:00 | | | | | | AM PST | | | | +-------+ +--------+---+---+ +---+---+ | | | +---+---+ + +-------+ +-----+---+---+ | ceFAZolin (aka ANCEF) injection | Given | 09/07/20 | 1 g | | | | 1 g 1 g, intravenous, EVERY 8 | | 08 1:00 | | | | | HOURS, 3 doses, First dose (after | | PM PST | | | | | last modification) on Mon | | | | | | | 09/06/08 at 2100, Last dose on Tue | | | | | | | 09/07/08 at 1300 | | | | | | + +-------+ +-----+---+---+ +-------+ +-----+---+---+ | Given | 09/07/20 | 1 g | | | | | 08 5:27 | | | | | | AM PST | | | | +-------+ +-----+---+---+ | Given | 09/06/20 | 1 g | | | | | 08 9:00 | | | | | | PM PST | | | | +-------+ +-----+---+---+ +---+---+ | | | +---+---+ + +-------+ +-------+---+---+ | cyclobenzaprine (aka FLEXERIL) | Given | 09/09/20 | 10 mg | | | | tablet 10 mg 10 mg, oral, TWICE | | 08 9:00 | | | | | DAILY, First dose on 09/06/08 | | AM PST | | | | | at 2100, Until Discontinued | | | | | | + +-------+ +-------+---+---+ +-------+ +-------+---+---+ | Given | 09/07/20 | 10 mg | | | | | 08 9:00 | | | | | | AM PST | | | | +-------+ +-------+---+---+ | Given | 09/06/20 | 10 mg | | | | | 08 9:00 | | | | | | PM PST | | | | +-------+ +-------+---+---+ +---+---+ | | | +---+---+ + +---------+ +-------+-------+---+ | dextrose 5%-NaCl 0.45%-KCl 20 | New Bag | 09/07/20 | 100 | 100 | | | mEq/L IV infusion 100 mL/hr, | | 08 12:25 | mL/hr | mL/hr | | | intravenous, CONTINUOUS, Starting | | AM PST | | | | | 09/06/08 at 1715, Until [place] | | | | | | | 09/09/08 at 1941 | | | | | | + +---------+ +-------+-------+---+ + + +-------+-------+---+ | Rate/Dose Change | 09/06/20 | 100 | 100 | | | | 08 5:15 | mL/hr | mL/hr | | | | PM PST | | | | + + +-------+-------+---+ +---+---+ | | | +---+---+ + +-------+ +--------+---+---+ | fentanyl (aka SUBLIMAZE) | Given | 09/06/20 | 50 mcg | | | | injection 50-300 mcg 50-300 mcg, | | 08 4:44 | | | | | intravenous, POSTPROCEDURE PRN, | | PM PST | | | | | Starting 09/06/08 at 1026, | | | | | | | Until Sat09/06/08 at 1703, | | | | | | | moderate pain | | | | | | + +-------+ +--------+---+---+ +---+---+ | | | +---+---+ + +-------+ +---------+---+---+ | hydrochlorothiazide (aka | Given | 09/09/20 | 12.5 mg | | | | HYDRODIURIL) capsule 12.5 mg | | 08 9:00 | | | | | 12.5 mg, oral, DAILY, First dose | | AM PST | | | | | on Sat09/07/08 at 0900, Until | | | | | | | Discontinued | | | | | | + +-------+ +---------+---+---+ +-------+ +---------+---+---+ | Given | 09/07/20 | 12.5 mg | | | | | 08 9:00 | | | | | | AM PST | | | | +-------+ +---------+---+---+ +---+---+ | | | +---+---+ + +-------+ +--------+---+---+ | HYDROmorphone (aka DILAUDID) | Given | 09/06/20 | 0.4 mg | | | | injection 0.2-3 mg 0.2-3 mg, | | 08 4:45 | | | | | intravenous, POSTPROCEDURE PRN, | | PM PST | | | | | Starting Sat09/06/08 at 1026, | | | | | | | Until Sat09/06/08 at 1703, | | | | | | | moderate pain | | | | | | + +-------+ +--------+---+---+ +---+---+ | | | +---+---+ + +-------+ +-------+---+---+ | lisinopril (aka PRINIVIL) | Given | 09/09/20 | 20 mg | | | | tablet 20 mg 20 mg, oral, DAILY, | | 08 9:00 | | | | | First dose on Sat09/07/08 at | | AM PST | | | | | 0900, Until Discontinued | | | | | | + +-------+ +-------+---+---+ +-------+ +-------+---+---+ | Given | 09/07/20 | 20 mg | | | | | 08 9:00 | | | | | | AM PST | | | | +-------+ +-------+---+---+ +---+---+ | | | +---+---+ + +-------+ +-------+---+---+ | lovastatin (aka MEVACOR) tablet | Given | 09/08/20 | 10 mg | | | | 10 mg 10 mg, oral, EVERY | | 08 10:00 | | | | | EVENING, First dose on Mon | | PM PST | | | | | 09/06/08 at 2100, Until | | | | | | | Discontinued | | | | | | + +-------+ +-------+---+---+ +-------+ +-------+---+---+ | Given | 09/07/20 | 10 mg | | | | | 08 9:00 | | | | | | PM PST | | | | +-------+ +-------+---+---+ +---+---+ | | | +---+---+ + +---------+ +---+--------+---+ | morphine 5 mg/mL CHEF MANAGER infusion | New Bag | 09/07/20 | | mL/hr | | | (ADULT) intravenous, | | 08 1:56 | | | | | CONTINUOUS, Starting 09/06/08 | | AM PST | | | | | at 1715, Until 09/07/08 at | | | | | | | 0653 | | | | | | + +---------+ +---+--------+---+ +---+---+ | | | +---+---+ + +---------+ +---+-------+---+ | NaCl 0.9 % 1,000 mL IV | New Bag | 09/08/20 | | 125 | | | intravenous, CONTINUOUS, Starting | | 08 1:03 | | mL/hr | | | 09/07/08 at 1745, Until [place] | | AM PST | | | | | 09/09/08 at 1941 | | | | | | + +---------+ +---+-------+---+ +---------+ +---+-------+---+ | New Bag | 09/07/20 | | 125 | | | | 08 5:45 | | mL/hr | | | | PM PST | | | | +---------+ +---+-------+---+ +---+---+ | | | +---+---+ + +-------+ +------+---+---+ | oxycodone immediate release | Given | 09/09/20 | 5 mg | | | | (aka ROXICODONE) tablet 5-15 mg | | 08 8:10 | | | | | 5-15 mg, oral, EVERY 4 HOURS | | AM PST | | | | | NEEDED, Starting 09/07/08 at | | | | | | | 1955, Until [facility] 09/09/08 at 1941, | | | | | | | severe pain | | | | | | + +-------+ +------+---+---+ +-------+ +------+---+---+ | Given | 09/09/20 | 5 mg | | | | | 08 12:36 | | | | | | AM PST | | | | +-------+ +------+---+---+ | Given | 09/08/20 | 5 mg | | | | | 08 3:11 | | | | | | PM PST | | | | +-------+ +------+---+---+ +---+---+ | | | +---+---+ + +-------+ +-------+---+---+ | oxycodone immediate release | Given | 09/07/20 | 20 mg | | | | (aka ROXICODONE) tablet 5-20 mg | | 08 1:34 | | | | | 5-20 mg, oral, EVERY 3 HOURS | | PM PST | | | | | NEEDED, Starting 09/06/08 at | | | | | | | 1703, Until 09/07/08 at 1956, | | | | | | | severe pain | | | | | | + +-------+ +-------+---+---+ +-------+ +-------+---+---+ | Given | 09/07/20 | 20 mg | | | | | 08 8:52 | | | | | | AM PST | | | | +-------+ +-------+---+---+ | Given | 09/07/20 | 20 mg | | | | | 08 12:40 | | | | | | AM PST | | | | +-------+ +-------+---+---+ +---+---+ | | | +---+---+ + +-------+ +--------+---+---+ | potassium chloride SR (aka | Given | 09/09/20 | 40 mEq | | | | K-DUR) tablet 40 mEq 40 mEq, | | 08 12:15 | | | | | oral, DAILY, First dose on [place] | | PM PST | | | | | 09/09/08 at 1215, Until | | | | | | | Discontinued | | | | | | + +-------+ +--------+---+---+ +---+---+ | | | +---+---+ + +-------+ +--------+---+---+ | ranitidine (aka ZANTAC) tablet | Given | 09/09/20 | 150 mg | | | | 150 mg 150 mg, oral, TWICE | | 08 9:00 | | | | | DAILY, First dose on 09/06/08 | | AM PST | | | | | at 2100, Until Discontinued | | | | | | + +-------+ +--------+---+---+ +-------+ +--------+---+---+ | Given | 09/08/20 | 150 mg | | | | | 08 10:00 | | | | | | PM PST | | | | +-------+ +--------+---+---+ | Given | 09/08/20 | 150 mg | | | | | 08 9:00 | | | | | | AM PST | | | | +-------+ +--------+---+---+ +---+---+ | | | +---+---+ + +-------+ +---------+---+---+ | senna-docusate (anisa THOMAS S) | Given | 09/09/20 | 2 | | | | 8.6-50 mg 2 Tab 2 tablet, oral, | | 08 9:00 | tablets | | | | TWICE DAILY, First dose on Mon | | AM PST | | | | | 09/06/08 at 2100, Until | | | | | | | Discontinued | | | | | | + +-------+ +---------+---+---+ +-------+ +---------+---+---+ | Given | 09/08/20 | 2 | | | | | 08 9:00 | tablets | | | | | AM PST | | | | +-------+ +---------+---+---+ | Given | 09/07/20 | 2 | | | | | 08 9:00 | tablets | | | | | PM PST | | | | +-------+ +---------+---+---+ +---+---+ | | | +---+---+ documented in this encounter"
--- OUTSIDE RECORDS SUMMARY | ~2020-05-01 | XMS | Encounter Summary ---
Demographics + + + | Address | [address] | | | [place] [address] | + + + | Home Phone [...] Team Providers + +------+ + | Care Automated Cutting Machine Operator Name | Role | Phone [...] as of this encounter Progress Notes Interface, Senior Automation Engineer In - 08/16/2006 1:10 AM PSTCLINIC DATE: [...] be requiring surgical intervention. Lloyd Garcia M.D. Drift Miner of Orthopedics and Rehabilitation / [id number] / [id number] / [id number] / cc: Helio Noland M.D. Juan JoseJuan Jose [place], [place] [id number] signed by Interface, Senior Automation Engineer In at 08/16/2006 1: 10 AM PSTdocumented in this encounter Plan of Treatment Not on filedocumented as of this encounter Visit Diagnoses Not on filedocumented in this encounter"
--- OUTSIDE RECORDS SUMMARY | ~2020-05-01 | XMS | Encounter Summary ---
Demographics + + + | Address | [address] | | | [place] [address] | + + + | Home Phone [...] Team Providers + +------+ + | Care Pulpit Operator Name | Role | Phone | [...] | Transcriptions | + + | Interface, Manager Park In - 09/19/2005 9:05 PM PST Date: | | 10/01/2003Attending Surgeon: Lloyd Garcia M.D.Dope Sprayer(s): | | Benson Boone M.D.Preoperative Diagnoses:Right hip [...] on July | | 2002 via [facility]. It was complicated by greater trochanter hardware [...] components of this operation.Benson Boone, | | Halegih Garcia M.D.RT / [id number] / [id number] / [id number] / [id number]: 10/01/2003T: 10/02/2003 | |2002, was demonstrating that [...] | | | |RT / HS | |[id number] / [id number] / [id number] / [id number] | | | | | + + documented in this encounter Visit Diagnoses Not on filedocumented in this encounter"
--- OUTSIDE RECORDS SUMMARY | ~2020-05-01 | XMS | Encounter Summary ---
Demographics + + + | Address | [address] | | | [place] [address] | + + + | Home Phone [...] Team Providers + +------+ + | Care Biochemical Development Engineer Name | Role | Phone | [...] | | | Mailcode: [id number] | [facility] [place] | | | | | [facility] | [address] | | | | | [place], [place] | [phone] | | | | | [address] | | | | | | [phone] | | | +--------+ + + + [...]
--- OUTSIDE RECORDS SUMMARY | ~2020-05-01 | XMS | Encounter Summary ---
Demographics + + + | Address | [address] | | | [place] [address] | + + + | Home Phone [...] Team Providers + +------+ + | Care Post Form Remover Name | Role | Phone | [...] Terrence | | | | | | [place], [place] | | | | | | [address] | | | | | | [phone] | | | +--------+ + + + [...]
--- OUTSIDE RECORDS SUMMARY | ~2020-05-01 | XMS | Encounter Summary ---
Demographics + + + | Address | [address] | | | [place] [address] | + + + | Home Phone [...] Providers + +------+ + | Care Fine Artist Name | Role | Phone | + [...] Procedures | Pankaj Bergman | Roxann Ayala [facility] | | | | | CT INJ | Roxann Ayala [facility], | | | | | SACROILIAC | [place], [place] | 10th Floor | | | | | JOINT | [address] | [place], [place] | | | | | W/NEEDLE | Phone: | [phone] | | | | | PLCMT | [phone] | Phone: | | | | | | Fax: | [phone] | | | | | | [phone] | Fax: | | | | | | | [phone] | +--------+--------+ + + + + Reason [...] | | | | | | | [address] | | | | | | | Phone: | | | | | | | [phone] | | | | | | | Fax: | | | | | | | [phone] | +--------+--------+ + + + + Encounter [...] | | | | Mailcode: [id number] | [place], [place] | | | | | [facility] | [address] | | | | | [place], [place] | [phone] | | | | | [address] | | | | | | [phone] | | | +--------+---------+ + + + [...] SACROILIAC JOINT W/NEEDLE PLCMT (10/12/2009 10:08 AM [facility] + + + + + + | [...] | | | | | | the naval surface fire support planner. | | | | | | Aquatics Coordinator imaging was | | | | | [...]
--- OUTSIDE RECORDS SUMMARY | ~2020-05-01 | XMS | Encounter Summary ---
Demographics + + + | Address | [address] | | | [place] [address] | + + + | Home Phone [...] Team Providers + +------+ + | Care Career Development Facilitator Name | Role | Phone | + [...] as of this encounter Progress Notes Interface, Neuropsychology Medical Consultant In - 07/22/2006 3:18 AM PDTCLINIC DATE: [...] that. Jason Castano M.A. TAYE / SALEEM [id number] / [id number] / [id number] / Tdocumented in this encounter Plan of Treatment Not on filedocumented as of this encounter Visit Diagnoses Not on filedocumented in this encounter"
--- OUTSIDE RECORDS SUMMARY | ~2020-05-01 | XMS | Encounter Summary ---
Demographics + + + | Address | [address] | | | [place] [address] | + + + | Home Phone [...] Team Providers + +------+ + | Care Client Service Associate Name | Role | Phone | [...] | unspecified | [address] | [address] [place], | | | | | whether | [place], [place] | [place] | | | | | generalized | [address] | [address] | | | | | or | Phone: | Phone: | | | | | localized, | [phone] | [phone] | | | | | pelvic | Fax: | Fax: | | | | | region and | [phone] | [phone] | | | | | thigh | | | | | | | Osteoarthrit | | | | | | | is of Hip | | | | | | | Procedures | | | | | | | RI TOTAL HIP | | | | | | | | | | | | | | ARTHROPLASTY | | | | | | | RI | | | | | | | RECONSTRUC | | | | | | | HIP | | | | | | | SOCKET,RESEC | | | | | | | FEM HEAD | | | | | | | RI REMOVAL | | | | | | | OF ISCHIAL | | | | | | | B[place] | | | | | | | [...] [place] | | | | | | [address] | | | | | | [phone] | | | +--------+---------+ + + + [...] surgeries scheduled to take place on the [place] at the [facility]: Surgeries scheduled in the [place] [facility] ([address] [place] [address]): registration is located on the 4th floor of [facility] (Day Surgery). Surgeries scheduled in the [facility]: registration is located on the 9th floor. Surgeries scheduled in [facility]: registration is located on the 6th floor. Surgeries scheduled in the [facility]: registration is located i n the [facility] on the first floor. For surgeries scheduled to take place at the [facility]: registration is [...] If you use specialized medical equipment at [facility], please check with your provider before [...] surgeries scheduled to take place on the [place] at the [facility]: Surgeries scheduled in the [place] [facility] ([address] [place] [address]): registration is located on the 4th floor of [facility] (Day Surgery). Surgeries scheduled in the [facility]: registration is located on the 9th floor. Surgeries scheduled in [facility]: registration is located on the 6th floor. Surgeries scheduled in the [facility]: registration is located i n the [facility] on the first floor. For surgeries scheduled to take place at the [facility]: registration is l [...] you use specialized medical equipment [facility], please check with your provider before [...] infection has s calvin been cleared with continuous churn buttermaker antibiotics. In this time she has also [...] OF ACTION: see above PARQ: see above. [facility] umeunice in this encounter Plan of [...] Performed At | + + + | [id number] Estimated GFR > 60 mL/min/1.73 sq m if non- | [facility] | | [place] [id number] Estimated GFR > 60 mL/min/1.73 sq m if | DEPARTMENT OF | | [place] GFR is estimated using the MDRD equation [...] + + | [facility] | [address] | [place] [address] | | | PATHOLOGY | [address] | | | + + + + + | [facility] | [address] | [place] [address] | | | PATHOLOGY | [address] [...] + + + | [facility] | [facility] | [place] [address] | | | PATHOLOGY | [address] | | | + + + + + | [facility] | [address] [facility] | [place] [address] | | | PATHOLOGY | [address] [...] + + + + + | [facility] DEPARTMENT [facility] | [facility] | [place] [address] | | | PATHOLOGY | [address] | | | + + + + + | [facility] DEPARTMENT [facility] | [facility] | [place] [address] | | | PATHOLOGY | [address] [...] + + + + | PRODUCT | [id number] | | [facility] | | | UNIT [...] + + | [facility] | [address] [facility] | [place] [address] | | | PATHOLOGY | [address] | | | + + + + + | [facility] | [address] [place] [address] | [place] [address] | | | PATHOLOGY | [address] | | | + + + + + documented in this encounter Visit Diagnoses + + | Diagnosis | + + | Other specified pre-operative examination - Primary | + + documented in this encounter
--- OUTSIDE RECORDS SUMMARY | ~2020-05-01 | XMS | Encounter Summary ---
Demographics + + + | Address | [address] | | | [place] [address] | + + + | Home Phone [...] Team Providers + +------+ + | Care Educational Assistant Teacher Name | Role | Phone | [...] as of this encounter Progress Notes Interface, Mobile Qa Tester In - 06/03/2006 3:06 AM PDTCLINIC DATE: [...] by her new primary care physician in [place], and she is requesting a repeat hip [...] this would be inadvisable. Lloyd Garcia M.D. Culinary Manager, Orthopedics and Rehabilitation / HS [id number] / [id number] / [id number] / [id number] cc: Ninfa Guillen M.D. [address] [facility], [place] [id number] signed by Interface, Mobile Qa Tester In at 06/03/2006 3:06 AM PDTInterface, Mobile Qa Tester In - 06/03/2006 3:06 AM PDTCLINIC DATE: [...] go ahead and send her back to [facility] for a right intraarticular hip injection as this is what she wants. We will currently hold off on hip replacement due to her young age, and she can follow up back in the clinic in 6months' time. Tr Mcghee M.D. Lloyd Garcia M.D. / [id number] / [id number] / [id number] / Tdocumented in this encounter Plan of Treatment Not on filedocumented as of this encounter Visit Diagnoses Not on filedocumented in this encounter"
--- OUTSIDE RECORDS SUMMARY | ~2020-05-01 | XMS | Encounter Summary ---
Demographics + + + | Address | [address] | | | [place] [address] | + + + | Home Phone [...] Providers + +------+ + | Care Entertainment Usher Name | Role | Phone | + +------+ + | Marta Jenkins MELT SUPERINTENDANT | PCP | | + +------+ + [...] | Jamie Mailcode: [address] [place], | | | | | [place], [place] | [place] [address] | | | | | [address] | | | | | | [phone] | | | +--------+ + + + [...] | + + + + + | [facility] | [address] | [place] [address] | | | LAB-MICRO | | | [...] | | | | | performed at [facility] | | | | | | [facility] | | | | | | Laboratory. | | | | + + + + + + + + | Specimen | + + | | + + + + + + + | Performing | Address | City/State/Zipcode | Phone Number | | Organization | | | | + + + + + | [facility] | [address] | [place] [address] | | | LAB-MICRO | | | [...] + + + | [facility] | [address] | [place] [address] | | | LAB-MICRO | | | [...] + + + | [facility] | [address] | [place] [address] | | | LAB-MICRO | | | [...] + + + | [facility] | [address] | [place] [address] | | | LAB-MICRO | | | [...] | | | | | performed at [facility] | | | | | | [facility] | | | | | | Laboratory | | | | + + + + + + + + | Specimen | + + | | + + + + + + + | Performing | Address | City/State/Zipcode | Phone Number | | Organization | | | | + + + + + | [facility] | [address] | [place] [address] | | | LAB-MICRO | | | [...] | | | | Test performed at [facility] | | | | | | [facility] | | | | | | Laboratory. | | | | + + + + + + + + | Specimen | + + | | + + + + + + + | Performing | Address | City/State/Zipcode | Phone Number | | Organization | | | | + + + + + | [facility] | [address] | [place] [address] | | | LAB-MICRO | | | [...] | | | | | performed at [facility] | | | | | | [facility] | | | | | | Laboratory. | | | | + + + + + + + + | Specimen | + + | | + + + + + + + | Performing | Address | City/State/Zipcode | Phone Number | | Organization | | | | + + + + + | [facility] | [address] | [place] [address] | | | LAB-MICRO | | | [...] + + + | [facility] | [address] | [place] [address] | | | LAB-MICRO | | | [...] | + + + + + | [facility] | [address] | [place] [address] | | | LAB-MICRO | | | [...] + + + | [facility] | [address] | [place] [address] | | | LAB-MICRO | | | [...] | | | | | performed at [facility] | | | | | | [facility] | | | | | | Laboratory | | | | + + + + + + + + | Specimen | + + | | + + + + + + + | Performing | Address | City/State/Zipcode | Phone Number | | Organization | | | | + + + + + | [facility] | [address] | [place] [address] | | | LAB-MICRO | | | [...] + + + | [facility] | [address] | [place] [address] | | | LAB-MICRO | | | [...] | | | | | performed at [facility] | | | | | | [facility] | | | | | | Laboratory. | | | | + + + + + + + + | Specimen | + + | | + + + + + + + | Performing | Address | City/State/Zipcode | Phone Number | | Organization | | | | + + + + + | [facility] | [address] | [place] [address] | | | LAB-MICRO | | | | + + + + + documented in this encounter Visit Diagnoses Not on filedocumented in this encounter"
--- OUTSIDE RECORDS SUMMARY | ~2020-05-01 | XMS | Encounter Summary ---
Demographics + + + | Address | [address] | | | [place] [address] | + + + | Home Phone [...] Team Providers + +------+ + | Care Stull Installer Name | Role | Phone | [...] as of this encounter Progress Notes Interface, Dye Beck Reel Operator In - 04/19/2006 3:09 AM PDTCLINIC [...] questions. Jason Castano M.A. Orthopedics / HS [id number] / [id number] / [id number] / Tdocumented in this encounter Plan of Treatment Not on filedocumented as of this encounter Visit Diagnoses Not on filedocumented in this encounter"
--- OUTSIDE RECORDS SUMMARY | ~2020-05-01 | XMS | Encounter Summary ---
Demographics + + + | Address | [address] | | | [place] [address] | + + + | Home Phone [...] Team Providers + +------+ + | Care Geotechnical Field Technician Name | Role | Phone | [...] as of this encounter Progress Notes Interface, Floor Coverings Salesperson In - 04/28/2005 10:57 PM PDTClinic Date: [...] resolved, and she attributes to eating a Gabonese pork and vegetable lap dish called Netlift. Physical Examination General: Shelby is in good [...] drain is in place. Lloyd Garcia M.D. Copying Machine Repairer-Orthopedics and Rehabilitation / SALEEM [id number] / [id number] / [id number] / cc: Everett Guillen M.D. [address] [place] [address] [id number] signed by Interface, Floor Coverings Salesperson In at 04/28/2005 10:57 PM PDTdocumented in this encounter Plan of Treatment Not on filedocumented as of this encounter Visit Diagnoses Not on filedocumented in this encounter"
--- OUTSIDE RECORDS SUMMARY | ~2020-05-01 | XMS | Encounter Summary ---
Demographics + + + | Address | [address] | | | [place] [address] | + + + | Home Phone [...] + +------+ + | Care Director Of Early Childhood Education Name | Role | Phone | + [...]
--- OUTSIDE RECORDS SUMMARY | ~2020-05-01 | XMS | Encounter Summary ---
Demographics + + + | Address | [address] | | | [place] [address] | + + + | Home Phone [...] Team Providers + +------+ + | Care Specialty Person Name | Role | Phone | [...] | | | | | | [address] [place], [place] | | | | | | [address] | | | | | | [phone] | | | +--------+---------+ + + + [...] | + + +--------+ + + | MO COLLECTION VENOUS | Procedures | Routin | [...] + + + + | PRODUCT | [id number] | | [facility] | | | UNIT [...] DEPARTMENT OF | [address] | [place] [address] | | | PATHOLOGY | [address] | | | + + + + + | [facility] DEPARTMENT OF | [address] | [place] [address] | | | PATHOLOGY | [address] [...] Performed At | + + + | [id number] Estimated GFR > 60 mL/min/1.73 sq m if non- | [facility] | | Citizen [place] [id number] Estimated GFR > 60 mL/min/1.73 sq m if | DEPARTMENT OF | | Citizen Of [place] GFR is estimated using the MDRD equation [...] | + + + + + | [facility] | [facility] | [place] [address] | | | PATHOLOGY | [address] | | | + + + + + | [facility] | [address] [place] [address] | [place] [address] | | | PATHOLOGY | [address] [...] + + + + + | [facility] DEPARTMENT OF | [address] [facility] | [place] [address] | | | PATHOLOGY | [address] | | | + + + + + | [facility] DEPARTMENT OF | [address] [facility] | [place] [address] | | | PATHOLOGY | [address] [...] + + + + + | [facility] DEPARTMENT OF | [address] | [place] [address] | | | PATHOLOGY | [address] | | | + + + + + | [facility] DEPARTMENT OF | [address] | [place] [address] | | | PATHOLOGY | [address] [...] view image for the detailed interpretation from [employer] results. | CARDIOLOGY | | | | + + + + + + + + | Performing | Address | City/State/Zipcode | Phone Number | | Organization | | | | + + + + + | [facility] DEPT OF | [address] | [place], [place] | | | CARDIOLOGY | [facility] | [address] | | + + + + + | [facility] | [address] | [place], [place] | | | CARDIOLOGY | [address] | [address] | | + + + + + documented in this encounter Visit Diagnoses + + | Diagnosis | + + | Other specified pre-operative examination - Primary | + + documented in this encounter
--- OUTSIDE RECORDS SUMMARY | ~2020-05-01 | XMS | Encounter Summary ---
Demographics + + + | Address | [address] | | | [place] [address] | + + + | Home Phone [...] Team Providers + +------+ + | Care Geothermal Installer Name | Role | Phone | [...] as of this encounter Progress Notes Interface, Spool Maker In - 04/01/2006 3:12 AM PDTCLINIC DATE: [...] a total hip replacement. Lloyd Garcia M.D. Chiropractic Care, Orthopedics and Rehabilitation / [id number] / [id number] / [id number] / cc: Ninfa Guillen M.D. [address] [id number] signed by Interface, Spool Maker In at 04/01/2006 3:1 2 AM PDTdocumented in this encounter Plan of Treatment Not on filedocumented as of this encounter Visit Diagnoses Not on filedocumented in this encounter"
--- OUTSIDE RECORDS SUMMARY | ~2020-05-01 | XMS | Encounter Summary ---
Demographics + + + | Address | [address] | | | [place] [address] | + + + | Home Phone | | + + + | Preferred Language | Unknown | + + + | Marital Status | | + + + | Sikhism Affiliation | 1076 | + + + | Race | Unknown | + + + | Ethnic Group | Unknown | + + + Author + + + | Author | [facility] | | | and [place] | + + + | Organization | [facility] | | | [...] + +------+ + | Care Director Of Dietary Name | Role | Phone | + +------+ + PCP | Unavailable | + +------+ + Encounter Details +--------+ + + + + | Date | Type | Department | Care Team | Description | +--------+ + + + + | 10/21/ | [facility] | [facility] | Helio Ahn | | | 2006 | Encounter | MED CTR SLEEP | MD Candie [address] | | | | | CENTER [address] | [address] | | | | | [place] | [place] [address] | | | | | [address] | [phone] | | | | | [phone] | | | +--------+ + + + [...] [place] | | | | | | [address] | | | | | | | | +--------+---------+ + + + documented as of this encounter Visit Diagnoses Not on filedocumented in this encounter"
--- OUTSIDE RECORDS SUMMARY | ~2020-05-01 | XMS | Encounter Summary ---
Demographics + + + | Address | [address] | | | [place] [address] | + + + | Home Phone [...] Team Providers + +------+ + | Care Shift Stacker Name | Role | Phone | + +------+ + PCP | Unavailable | + +------+ + Encounter Details +--------+ + + + + | Date | Type | Department | Care Team | Description | +--------+ + + + + | // | Results | | Other, Faculty | | | 2003 | Only | | [phone] | | +--------+ + + + + [...] | + + + + + | [facility] DEPARTMENT OF | [address] | [place] [address] | | | PATHOLOGY | [address] | | | + + + + + | [facility] DEPARTMENT OF | [address] | [place] [address] | | | PATHOLOGY | [address] [...] + + + + + | [facility] | [address] | [place] [address] | | | PATHOLOGY | [address] | | | + + + + + | [facility] | [address] | [place] [address] | | | PATHOLOGY | [address] [...] + + + | [facility] | [address] | [place] [address] | | | LABORATORY | | | [...] DEPARTMENT OF | [address] | [place] [address] | | | PATHOLOGY | [address] | | | + + + + + | [facility] DEPARTMENT OF | [address] | [place] [address] | | | PATHOLOGY | [address] [...] | + + + + + | [facility] DEPARTMENT OF | [address] [facility] | [place] [address] | | | PATHOLOGY | [address] | | | + + + + + | [facility] DEPARTMENT OF | [address] | [place] [address] | | | PATHOLOGY | [address] [...] | + + + + + | [facility] DEPARTMENT OF | [facility] | [place] [address] | | | PATHOLOGY | [address] | | | + + + + + | [facility] DEPARTMENT OF | [address] | [place] [address] | | | PATHOLOGY | [address] [...] + + + + + | [facility] | [address] [facility] | [place] [address] | | | PATHOLOGY | [address] | | | + + + + + | [facility] | [address] [place] [address] | [place] [address] | | | PATHOLOGY | [address] [...] + + + + + | [facility] | [address] [facility] | [place] [address] | | | PATHOLOGY | [address] | | | + + + + + | [facility] | [facility] | [place] [address] | | | PATHOLOGY | [address] [...] DEPARTMENT OF | [address] | [place] [address] | | | PATHOLOGY | [address] | | | + + + + + | [facility] DEPARTMENT OF | [address] | [place] [address] | | | PATHOLOGY | [address] | | | + + + + + CREATININE, PLASMA (10/04/2003 6:15 AM PST) + +-------+ + + + | Component | Value | Ref Range | Performed | Pathologist | | | | | At | Signature | + +-------+ + + + | CREATININE | 0.8 | 0.6 - 1.1 mg/dL | [facility] | | | PLASMA | | | [...] | + + + + + | [facility] DEPARTMENT OF | [address] [facility] | [place] [address] | | | PATHOLOGY | [address] | | | + + + + + | [facility] DEPARTMENT OF | [address] [facility] | [place] [address] | | | PATHOLOGY | [address] [...] DEPARTMENT OF | [address] | [place] [address] | | | PATHOLOGY | [address] | | | + + + + + | [facility] DEPARTMENT | [address] | [place] [address] | | | PATHOLOGY | [address] [...] | + + + + + | [facility] DEPARTMENT OF | [address] | [place] [address] | | | PATHOLOGY | [address] | | | + + + + + | [facility] DEPARTMENT OF | [address] | [place] [address] | | | PATHOLOGY | [address] [...] + + + + + | [facility] | [address] | [place] [address] | | | PATHOLOGY | [address] | | | + + + + + | [facility] | [address] | [place] [address] | | | PATHOLOGY | [address] | | | + + + + + documented in this encounter Visit Diagnoses Not on filedocumented in this encounter"
--- OUTSIDE RECORDS SUMMARY | ~2020-05-01 | XMS | Encounter Summary ---
Demographics + + + | Address | [address] | | | [place] [address] | + + + | Home Phone | | + + + | Preferred Language | Unknown | + + + | Marital Status | | + + + | Zoroastrianism Affiliation | 1076 | + + + | Race | Unknown | + + + | Ethnic Group | Unknown | + + + Author + + + | Author | [facility] | | | and [place] | + + + | Organization | [facility] | | | [...] Team Providers + +------+ + | Care Intel Recruiter Name | Role | Phone | + +------+ + | Eric Krishna MD | PCP | | + +------+ + Encounter Details +--------+ + + + + | Date | Type | Department | Care Team | Description | +--------+ + + + + | 12/04/ | Hospital | [facility] | Conversion | Decreased range of | | 2018 | Encounter | CENTER OPI XRAY | Transaction, | motion of hip; Hip | | | | [address] | Provider Unknown | pain, chronic, left | | | | [address] [place], [place] | [phone] | | | | | [address] | | | | | | [phone] | Carmine Frost S, | | | | | | KITCHEN STEWARD/STEWARDESS [address] [place] [address] | | | | | | [address] [place], | | | | | | [place] [address] | | | | | | [phone] | | | | | | | [...] [place] | | | | | | [address] | | | | | | | [...]
--- OUTSIDE RECORDS SUMMARY | ~2020-05-01 | XMS | Encounter Summary ---
Demographics + + + | Address | [address] | | | [place] [address] | + + + | Home Phone [...] Team Providers + +------+ + | Care Airdrop Systems Technician Name | Role | Phone | [...] as of this encounter Progress Notes Interface, Medical Or Surgical Instrument Maker In - 04/28/2005 5:10 PM PDT Referred [...]
--- OUTSIDE RECORDS SUMMARY | ~2020-05-01 | XMS | Encounter Summary ---
Demographics + + + | Address | [address] | | | [place] [address] | + + + | Home Phone [...] Team Providers + +------+ + | Care Shoe Stitcher Name | Role | Phone | + [...] | | | | | | | [address] | | | | | | | [address] | | | | | | | Jamie 2SE/UHN85 | | | | | | | Rose | | | | | | | [place] | | | | | | | (MNP/OLD [facility]) | | | | | | | [place], | | | | | | | [place] [address] | +--------+--------+ + + + + Encounter Details +--------+ + + + + | Date | Type | Department | Care Team | Description | +--------+ + + + + | 09/06/ | Hospital | [facility] [address] | Tyrone Colby MD | | | 2007 - | Encounter | [address] [facility] [address] | [address] [facility] | | | | | 2SE/UHN85 | [facility] | | | 09/09/ | | Rose Ocampo | [place], [place] | | | 2007 | | (MNP/OLD [facility]) | [address] | | | | | [place], [place] | [phone] | | | | | [address] | | | +--------+ + + + [...] #3. Radiation oncology team was consulted and [facility] administered a single radiation treatment as prophylaxis [...] right hip. 0. Needs continued PT/OT at [facility] 1. You may remove dressing 3 days after your surgery and OK for shower thereafter as long a s the incision is not draining. Sponge bath until dressings off. No soaking in tub, pool, et c. If there is drainage after [address] new guaze on the incision and call the Orthopaedi c clinic [phone]. 2. Continue to take Aspirin 325mg twice a day for a total of 6 weeks. Stop if you have stom ach upset or blood in your stool. Let your surgeon know if you have had GI bleeding in the p ast after taking Aspirin or NSAID's. 3. DO NOT let anyone start you on Antibiotics if they suspect your wound is infected. Call manager valuation [facility] Orthopaedist first. Call [phone] for daytime and weekdays, or [phone] for nights and weekends. If you have [...] Dr. Colby in 2 wks. Please call [phone] now to confirm appointment. Follow Up Tests: (Tests at [facility] must be entered into [employer]) none Condition On Discharge: Good Discharge Medications: [...] incision and call the Orthopaedi c clinic [phone]. 2. Continue to take Aspirin 325mg twice a day for a total of 6 weeks. Stop if you have stom ach upset or blood in your stool. Let your surgeon know if you have had GI bleeding in the p ast after taking Aspirin or NSAID's. 3. DO NOT let anyone start you on Antibiotics if they suspect your wound is infected. Call manager valuation [facility] Orthopaedist first. Call [phone] for daytime and weekdays, or [phone] for nights and weekends. If you have [...] Dr. Colby in 2 wks. Please call [phone] now to confirm appointment. Follow Up Tests: (Tests at [facility] must be entered into [facility]) none Condition On Discharge: Good Discharge [...] Faculty - 8 12:00 AM Shelby Thompson [id number] [facility] REC NUMBER: [id number] NAME : Shelby Galdamez DATE : 1960 Admit Date: 09/06/2008 Discharge Date: 09/09/2008 PHYSICIAN'S REQUEST FOR HOME HEALTH SERVICES Relevant History: Location to receive services if other than home: Allergies: Height: Weight: Ordering Physician: [address] [facility] [address], [place] [address] Physician to follow for ongoing home health orders: PCP Name: PCP Phone: Discharge Need(s): 1. Senior Care Facility Discharge Vendor: [facility] Discharge Suggested First Visit/Delivery Date: Discharge Service/Equipment: 2. Transportation Discharge Vendor: Medicaid - [place] Discharge Suggested First Visit/Delivery Date: Discharge Service/Equipment: stretcher 12:30pm Butadiene Compressor Operator: Tr Rosales - 09/08/2008 2:22 PM PSTRADIATION [...] as able . Tasha Harding OTR//L Pager [phone] Tyrone Haney - 2007 7:55 AM PST [...] plan of care. TYRONE COLBY MD [facility] [address] 2se/uhn85 [place] [address] Taz Rand - 08/30 5:50 AM PST [...] DEPARTMENT OF | [address] | [place] [address] | | | PATHOLOGY | [address] | | | + + + + + | [facility] DEPARTMENT OF | [address] | [place] [address] | | | PATHOLOGY | [address] [...] [facility] | [address] | [place] [address] | | | PATHOLOGY | [address] | | | + + + + + | [facility] DEPARTMENT OF | [address] | [place] [address] | | | PATHOLOGY | [address] [...] + + + + | [facility] | [address] [facility] | [place] [address] | | | PATHOLOGY | [address] | | | + + + + + | [facility] | [address] | [place] [address] | | | PATHOLOGY | [address] [...] [facility] DEPARTMENT OF | [address] | [place] [address] | | | PATHOLOGY | [address] | | | + + + + + | [facility] DEPARTMENT OF | [address] | [place] [address] | | | PATHOLOGY | [address] [...] [facility] DEPARTMENT OF | [address] | [place] [address] | | | PATHOLOGY | [address] | | | + + + + + | [facility] DEPARTMENT OF | [address] | [place] [address] | | | PATHOLOGY | [address] [...] | | THERAPY | | | | EDITOR & CO FOUNDER | | | | + + + [...] [facility] RES[facility] | [address] | [place], [place] | | | THERAPY | [address] | [address] | | + + + + + | [facility] | [address] | [place], [place] | | | THERAPY | [address] | [address] | | + + + + + [...] | Signed by: Britt Lynn, | | | | | | EDITOR & CO FOUNDER | | | | + + + [...] [facility] | [address] | [place], [place] | | | THERAPY | [address] | [address] | | + + + + + | [facility] RES[facility] | [address] | [place], [place] | | | THERAPY | [address] | [address] | | + + + + + [...] [facility] DEPARTMENT OF | [address] | [place] [address] | | | PATHOLOGY | [address] | | | + + + + + | [facility] DEPARTMENT OF | [address] | [place] [address] | | | PATHOLOGY | [address] [...] + + + + | [facility] | [address] | [place] [address] | | | PATHOLOGY | [address] | | | + + + + + | [facility] | [address] | [place] [address] | | | PATHOLOGY | [address] [...] | + + + + + | [facility] | [address] | [place] [address] | | | PATHOLOGY | [address] | | | + + + + + | [facility] | [address] | [place] [address] | | | PATHOLOGY | [address] [...] + + + + | [facility] | [address] | [place] [address] | | | PATHOLOGY | [address] | | | + + + + + | [facility] | [address] | [place] [address] | | | PATHOLOGY | [address] [...] Recio, | | | | | | EDITOR & CO FOUNDER | | | | + + + [...] [facility] | [address] | [place], [place] | | | THERAPY | [facility] | [address] | | + + + + + | [facility] | [address] | [place], [place] | | | THERAPY | [facility] | [address] | | + + + + + [...] | THERAPY | | | | Hemal, EDITOR & CO FOUNDER | | | | + + + [...] [facility] | [address] | [place], [place] | | | THERAPY | [address] | [address] | | + + + + + | [facility] | [address] | [place], [place] | | | THERAPY | [address] [facility] | [address] | | + + + + + [...] Recio, | | | | | | EDITOR & CO FOUNDER | | | | + + + [...] + + | [facility] | [address] | [place], [place] | | | THERAPY | [facility] | [address] | | + + + + + | [facility] | [address] | [place], [place] | | | THERAPY | [facility] | [address] | | + + + + + [...] [facility] | [address] | [place], [place] | | | THERAPY | [address] | [address] | | + + + + + | [facility] | [address] | [place], [place] | | | THERAPY | [address] [facility] | [address] | | + + + + + [...] Performed At | + + + | [id number] | | | [id number] TALLY | | | [place] [id number] Date: | | | 09/06/2008 Attending Surgeon: | | | Tyrone Colby M.D. Associate Artistic Director(s): | | | Maximiliano Chisholm M.D. | [...] | | decubitus position with a hip coffee attendant. The right hind quadrant and | | [...] Tyrone Alcantar | | | Sierra Colby. [facility] [id number] / [id number] / [id number] / | | | | | + + + + + | Procedure Note | + + | Tyrone Colby MD - 09/06/2008 12:00 AM [facility] [id number] | | [id number] CHAD Osei | | [id number] Date: 09/06/2008 Attending Surgeon: Tyrone | | Ortiz Colby M.D. Associate Artistic Director(s): Maximiliano Chisholm M.D. | | Linh Wiggins [...] decubitus position with a hip | | coffee attendant. Theright hind quadrant and lower extremity were [...] is | | warranted. Tyrone Colby M.D. [place] / [id number] / [id number] / [id number] /D: | | 09/06/2008T: 09/06/2008 | |anteriorly [...] Colby M.D. | | | | | |[place] / | |[id number] / [id number] / [id number] / | | | | | | [...] + +---------+ +---+--------+---+ | morphine 5 mg/mL [employer] infusion | New Bag | 09/07/20 | [...] | | | | | 1955, Until [facility] 09/09/08 at 1941, | | | | [...]
--- OUTSIDE RECORDS SUMMARY | ~2020-05-01 | XMS | Encounter Summary ---
Demographics + + + | Address | [address] | | | [place] [address] | + + + | Home Phone [...] Team Providers + +------+ + | Care Customer Care Specialist Name | Role | Phone [...] as of this encounter Progress Notes Interface, Featheredger And Reducer Machine In - 07/22/2006 3:18 AM PDTCLINIC DATE: [...] of the right knee. Lloyd Garcia M.D. wildlife conservation professor, Orthopedics and Rehabilitation. BIRGIT / SALEEM [id number] / [id number] / [id number] / [id number] cc: JILLIAN TODD MD [address] [facility] [id number] signed by Interface, Featheredger And Reducer Machine In at 07/22/2006 3:1 8 AM PDTdocumented in this encounter Plan of Treatment Not on filedocumented as of this encounter Visit Diagnoses Not on filedocumented in this encounter"
--- OUTSIDE RECORDS SUMMARY | ~2020-05-01 | XMS | Encounter Summary ---
Demographics + + + | Address | [address] | | | [place] [address] | + + + | Home Phone [...] Providers + +------+ + | Care In Service Educator Name | Role | Phone | [...] as of this encounter Progress Notes Interface, Hand Endband Cutter In - 08/16/2006 1:10 AM PSTCLINIC DATE: [...] be requiring surgical intervention. Lloyd Garcia M.D. Vamp Stitcher of Orthopedics and Rehabilitation / [id number] / [id number] / [id number] / cc: Helio Noland M.D. Juan JoseJuan Jose [place], [place] [address]Tuarntvfholhrt signed by Interface, Hand Endband Cutter In at 08/16/2006 1: 10 AM PSTdocumented in this encounter Plan of Treatment Not on filedocumented as of this encounter Visit Diagnoses Not on filedocumented in this encounter"
--- OUTSIDE RECORDS SUMMARY | ~2020-05-01 | XMS | Encounter Summary ---
Demographics + + + | Address | [address] | | | [place] [address] | + + + | Home Phone [...] Team Providers + +------+ + | Care Sock Drier Name | Role | Phone | [...] | | | unspecified | | Rd [place], | | | | | whether | | [place] | | | | | generalized | | [address] | | | | | or | | Phone: | | | | | localized, | | [phone] | | | | | pelvic | | Fax: | | | | | region and | | [phone] | | | | | thigh Pain [...] | | | | Mailcode: [id number] | [place], [place] | internal joint | | | | [facility] | [address] | prosthesis (HCC) | | | | [place], [place] | [phone] | (Primary Dx) | | | | [address] | | | | | | [phone] | | | +--------+---------+ + + + [...] has been indic ated for [facility] in [place], but they want the ok from [place]. [...] prn f/u here as she lives near [place]. d ocumented in this encounter Plan of [...]
--- OUTSIDE RECORDS SUMMARY | ~2020-05-01 | XMS | Encounter Summary ---
Demographics + + + | Address | [address] | | | [place] [address] | + + + | Home Phone [...] Providers + +------+ + | Care Floor Person Name | Role | Phone | [...] | [facility] | MEGAN Reddy [address] | | | | | [address] | [address] | | | | | Loop Physician's | [place], [place] | | | | | [place], 3rd floor | [address] | | | | | [place], [place] | [phone] | | | | | [address] | | | | | | [phone] | | | +--------+ + + + [...]
--- OUTSIDE RECORDS SUMMARY | ~2020-05-01 | XMS | Encounter Summary ---
Demographics + + + | Address | [address] | | | [place] [address] | + + + | Home Phone [...] Team Providers + +------+ + | Care Combat Rifle Crewmember Name | Role | Phone | + [...] [address] | | | | | | [address] [place] | | | | | | [address] | | | | | | [place], [place] | | | | | | [address] | | | | | | [phone] | | | +--------+ + + + [...]
--- OUTSIDE RECORDS SUMMARY | ~2020-05-01 | XMS | Encounter Summary ---
Demographics + + + | Address | [address] | | | [place] [address] | + + + | Home Phone [...] Providers + +------+ + | Care Educational Advisor Name | Role | Phone | + +------+ + PCP | Unavailable | + +------+ + Encounter Details +--------+ + + + + | Date | Type | Department | Care Team | Description | +--------+ + + + + | 07/13/ | Office | [facility] | Note, [...] as of this encounter Progress Notes Interface, Asset Protection Representative In - 09/08/2006 1:11 AM PSTCLINIC DATE: 07/13/1999 ORTHOPEDIC CLINIC HISTORY: This is an attending morgan element note on this 39-year-old obese female with end-stage DJD of the right hip who returns to clinic to follow up on her right hip arthrogram, injection, and CT scan. She report that she had approximately one day worth of right hip pain relief and that she has had good results with physical therapy in the past for this hip with more good days than bad days and with a program that included warm and cold water exercise program, generalized upper-body conditioning, strengthening, and weight loss. We had also included an exercise bicycle. Unfortunately, she has had a progressive severe low back pain which precludes her from working for prolonged periods in the sitting position, and her hip pain makes it difficult for her to ambulate or stand for great lengths of time. For this reason, she has been unable to continue working, according to her report. PHYSICAL EXAMINATION: Severe coxalgic gait. Please see Dr. Bernal's note for additional details. X-RAYS: A review of the CT and arthrogram shows that there is essentially no good cartilage remaining in the femoral head and acetabulum to rule out for either a pelvic periacetabular-type osteotomy or proximal femoral osteotomy ( ) better cartilage into the weightbearing region. ASSESSMENT: End-stage right hip degenerative joint disease. DISPOSITION: Because of her right hip pain and ipsilateral knee condition as well as low back pain, she is a poor candidate for hip arthrodesis. I believe she is too young and obese to recommend total hip replacement at this point. Her best hope for maintaining function until she might be a better candidate for total hip replacement in 10 years or more, would be with a comprehensive program of physical therapy, activity modification, hydrotherapy, Aqua therapy, and limited use of narcotic medications concentrating on Tylenol and nonsteroidal anti-inflammatories for pain control. I suggested that she may see my partner Dr. Austin if she is insisting on pursuing total hip arthroplasty; he will provide her with additional opinion. She prefers to pursue the physical-therapy program outlined above. She will return to clinic in three to six months for a repeat evaluation. Lloyd Garcia MD / [id number] / [id number] / [id number] / cc: Matthew Garcia MD [address] [place], [place] [address]Udxehwgcxiegyk signed by Interface, Asset Protection Representative In at 09/08/2006 1:11 AM PSTdocumented in this encounter Plan of Treatment Not on filedocumented as of this encounter Visit Diagnoses Not on filedocumented in this encounter"
--- OUTSIDE RECORDS SUMMARY | ~2020-05-01 | XMS | Encounter Summary ---
Demographics + + + | Address | [address] | | | [place] [address] | + + + | Home Phone [...] Team Providers + +------+ + | Care Elevators Inspector Name | Role | Phone | [...] | [facility] | MEGAN Reddy [address] | | | | | [address] | [address] | | | | | Loop Physician's | [place], [place] | | | | | [place], 3rd floor | [address] | | | | | [place], [place] | [phone] | | | | | [address] | | | | | | [phone] | | | +--------+ + + + [...] | SEDIMENTATI | 48 | mm/hr | [facility] | | | ON RATE | | [...] | + + + + + | [facility] | [address] | [place] [address] | | | CENTER - [place] | | | | + + + + + documented in this encounter Visit Diagnoses Not on filedocumented in this encounter"
--- OUTSIDE RECORDS SUMMARY | ~2020-05-01 | XMS | Encounter Summary ---
Demographics + + + | Address | [address] | | | [place] [address] | + + + | Home Phone [...] Providers + +------+ + | Care Route Salesman Name | Role | Phone | + [...] | | | | | | [place], | | | | | | | [place] | | | | | | | [address] | | | | | | | Phone: | | | | | | | [phone] | | | | | | | Fax: | | | | | | | [phone] | +--------+--------+ + + + + Encounter [...] | | arthroplasty) | | | | [place], [place] | | | | | | [address] | | | | | | [phone] | | | +--------+---------+ + + + [...] still well controlled at this point with [place]. She has been wbat and is overall [...] view Consult to rehabilitation physical therapy outside [facility] documented in this encounter Plan of [...] +---------+ + + | [facility] DEPARTMENT OF | | | | | [...]
--- OUTSIDE RECORDS SUMMARY | ~2020-05-01 | XMS | Encounter Summary ---
Demographics + + + | Address | [address] | | | [place] [address] | + + + | Home Phone [...] Team Providers + +------+ + | Care Taxi Dancer Name | Role | Phone | + [...] of this encounter Progress Notes Interface, Manager Media Relations In - 04/28/2005 5:10 PM PDTClinic Date: 08/31/2003 Orthopedic The patient called on August 31, 2003, requesting a prescription refill for oxycodone. A prescription refill was granted 50, 5 mg oxycodone was sent. This prescription refill was handled by Mariella Camacho. Dev Fleming M.D. / [id number] / [id number] / [id number] / Tdocumented in this encounter Plan of Treatment Not on filedocumented as of this encounter Visit Diagnoses Not on filedocumented in this encounter"
--- OUTSIDE RECORDS SUMMARY | ~2020-05-01 | XMS | Encounter Summary ---
Demographics + + + | Address | [address] | | | [place] [address] | + + + | Home Phone [...] Team Providers + +------+ + | Care Sanitation Laborer Name | Role | Phone | [...] | | [address] | [address] [place], | | | | | Mailcode: PV430 | [place] [address] | | | | | [facility] | | | | | | [place], [place] | | | | | | [address] | | | | | | [phone] | | | +--------+ + + + [...]
--- OUTSIDE RECORDS SUMMARY | ~2020-05-01 | XMS | Encounter Summary ---
Demographics + + + | Address | [address] | | | [place] [address] | + + + | Home Phone | | + + + | Preferred Language | Unknown | + + + | Marital Status | | + + + | Mormonism Affiliation | 1076 | + + + | Race | Unknown | + + + | Ethnic Group | Unknown | + + + Author + + + | Author | [facility] | | | and [place] | + + + | Organization | [facility] | | | and [...] Team Providers + +------+ + | Care Transitional Care Manager Name | Role | Phone | [...] pain, | [address], | | | | | generalized | [address], [place] | [address] | | | | | Other | [address] [place] | [place], | | | | | symptoms | [place], [place] | [place] [address] | | | | | involving | [address] | Phone: | | | | | digestive | Phone: | [phone] | | | | | system([phone] | [phone] | Fax: | | | | | 9) Nausea | Fax: | [phone] | | | | | alone | [phone] | | | | | | Flatulence, | | | | | | | eructation, | | | | | | | and gas pain | | | | | | | Procedures | | | | | | | MS UPPER | | | | | | | GI | | | | | | | ENDOSCOPY,DI | | | | | | | AGNOSIS MS | | | | | | | UPPER GI | | | | | | | ENDOSCOPY,BI | | | | | | | OPSY MS | | | | | | | COLONOSCOPY, | | | | | | | DIAGNOSTIC | | | | | | | MS | | | | | | | [...] GASTROENTEROLOGY | [address], [place] | generalized (Primary | | | | [address] | [address] [place], [place] | Dx); Other symptoms | | | | [address] [place], [place] | [address] | involving digestive | | | | [address] | | system; Nausea | | | | [phone] | | alone; Flatulence, | | | [...] [place] | | | | | | [address] | | | | | | | [...]
--- OUTSIDE RECORDS SUMMARY | ~2020-05-01 | XMS | Encounter Summary ---
Demographics + + + | Address | [address] | | | [place] [address] | + + + | Home Phone [...] Team Providers + +------+ + | Care Restaurant Area Director Name | Role | Phone | [...] [facility] | | | | | | [address] | | | | | | Loop Physician's | | | | | | [place], [facility] Floor | | | | | | [place], [place] | | | | | | [address] | | | | | | [phone] | | | +--------+ + + + [...] + + + +---------+ + + | [facility] Fatty | Take by mouth. | | [...] ABELARDO | | | | | | Link SANDOVALwer: | | | | | | MOSHE [...] | | + +---------+ + + | [facility] DEPARTMENT OF | | | | | RADIOLOGY | | | | + +---------+ + + documented in this encounter Visit Diagnoses + + | Diagnosis | + + | Hip pain, right Pain in joint, pelvic region and thigh | + + documented in this encounter"
--- OUTSIDE RECORDS SUMMARY | ~2020-05-01 | XMS | Encounter Summary ---
Demographics + + + | Address | [address] | | | [place] [address] | + + + | Home Phone [...] Team Providers + +------+ + | Care Astronomy Professor Name | Role | Phone | [...] | | | | | (sacroiliac) | [facility], | | | | | joint | Rd | 10th Floor | | | | | inflammation | [place], [place] | [place], [place] | | | | | ([facility]) | [address] | [address] | | | | | Procedures | | Phone: | | | | | CT INJ | | [phone] | | | | | SACROILIAC | | Fax: | | | | | JOINT | | [phone] | | | | | W/NEEDLE | [...] | | | | | | Rd [place], | | | | | | | [place] | | | | | | | [address] | | | | | | | Phone: | | | | | | | [phone] | | | | | | | Fax: | | | | | | | [phone] | +--------+--------+ + + + + Encounter [...] | | | | Mailcode: [id number] | [place], [place] | ([facility]) | | | | [facility] | [address] | | | | | [place], [place] | [phone] | | | | | [address] | | | | | | [phone] | | | +--------+---------+ + + + [...] and plan of care. TYRONE COLBY MD [facility] [address] [facility] Mailcode: [id number] [facility] [phone] esfaye Saenz PA-C - 02/20/2010 3:15 PM [...] None. | | | | | | Print Color Operator: Dr. Moss, | | | | | | transporter radiology. | | | | | | Doorperson Or Luggage Porter: | | | | | | Sue [...] the | | | | | | business support manager. Slitter Creaser Slotter Operator | | | | | | imaging [...]
--- OUTSIDE RECORDS SUMMARY | ~2020-05-01 | XMS | Encounter Summary ---
Demographics + + + | Address | [address] | | | [place] [address] | + + + | Home Phone | | + + + | Preferred Language | Unknown | + + + | Marital Status | | + + + | Taoism Affiliation | 1076 | + + + [...] Team Providers + +------+ + | Care Accounting Systems Manager Name | Role | Phone | [...] + | 01/13/ | Office | [facility] | Ladarius Martínez PA | MAMADOU on CPAP (Primary | | 2012 | Visit | SLEEP DISORDER [address] | [address] | Dx) | | | | [address] [place] | [place], [place] | | | | | [place] [address] | [address] | | | | | [phone] | | | +--------+---------+ + + + [...] Insomnia Severity Index Insomnia Severity Index 6 Norman Sleepiness Scale Sitting and reading 0 Watching [...] Ravi obtained from: [facility] [place] pressure is: 9 cm CPAP download shows [...] This is a common problem with the Yogurt3D Engine and Sensorion. Review of Systems Objective: Physical Exam Assessment: Problem # 1: OBSTRUCTIVE SLEEP APNEA (ICD-327.23) This appears to be controlled with CPAP. She has done pretty well with her CPAP compliance , but feels that she would benefit from replacing her CPAP. Plan: She is to continue with CPAP indefinitely. We have faxed a prescription to [facility] for a Res Med S9 with a pressure range of 9-16 cm. I will follow up again in 2 months, sooner prn. Fifteen minutes were spent [id number], w ith the majority of time spent in counseling. Ladarius Martínez PA-C cc: Dr. Barry documented in this enco unter Miscellaneous Notes Miscellaneous - ONBASE SCAN [facility] - 01/13/2013 12:00 AM PDT iscellaneous - ONBASE SCAN [facility] - 01/13/2013 12:00 AM PDTEle ctronically signed [...] | | | | | | [place] | | | | | | [address] | | | | | | | | +--------+---------+ + + + documented as of this encounter Visit Diagnoses + + | Diagnosis | + + | MAMADOU on CPAP - Primary Obstructive sleep apnea (adult) (pediatric) | + + documented in this encounter"
--- OUTSIDE RECORDS SUMMARY | ~2020-05-01 | XMS | Encounter Summary ---
Demographics + + + | Address | [address] | | | [place] [address] | + + + | Home Phone [...] Providers + +------+ + | Care Process Pumper Name | Role | Phone | + [...] | | Procedures | Rd | [place], | | | | | CONSULT TO | [place], [place] | [place] [address] | | | | | ORTHOPEDICS | [address] | | | | | | AND [...] | | [address] | Roxann Ayala [place], | | | | | Mailcode: [id number] | [place] [address] | | | | | [facility] | | | | | | [place], [place] | | | | | | [address] | | | | | | [phone] | | | +--------+---------+ + + + [...] as of this encounter Progress Notes Interface, Certified Flight Instructor In - 10/05/2006 2:33 AM PST [id number] CHAD Osei [id number] Clinic Date: 10/02/2006 Clinic: Orthopaedics [facility] Galdamez [...] Acevedo. Gino Baker M.D. KEE / SALE[place] [id number] / [id number] / [id number] / [id number] cc: Quintin Tirado Electronically signed by Gino [...]
--- OUTSIDE RECORDS SUMMARY | ~2020-05-01 | XMS | Encounter Summary ---
Demographics + + + | Address | [address] | | | [place] [address] | + + + | Home Phone [...] Team Providers + +------+ + | Care Ear Flap Binder Name | Role | Phone | [...] as of this encounter Progress Notes Interface, Frame Stripper And Crusher In - 09/15/2006 5:11 AM PSTCLINIC DATE: [...] M.D. Lloyd Garcia MD LLP:xt7 C: 04/26/99 [facility] cc: Matthew Garcia MD [address] [place], [place] [address]Bioeaaevbhurxk signed by Interface, Frame Stripper And Crusher In at 09/15/2006 5:11 AM PSTInterface, Frame Stripper And Crusher In - 09/13/2006 3:12 AM PSTCLINIC DATE: [...] evaluation and treatment recommendations. Lloyd Garcia M.D., Rental Boats Caretaker, Orthopedics and Rehabilitation AH:x12 Electronically signed by Bill, Frame Stripper And Crusher In at 1 11/14/2005 3:12 AM PSTdocumented in this encounter Plan of Treatment Not on filedocumented as of this encounter Visit Diagnoses Not on filedocumented in this encounter"
--- OUTSIDE RECORDS SUMMARY | ~2020-05-01 | XMS | Encounter Summary ---
Demographics + + + | Address | [address] | | | [place] [address] | + + + | Home Phone [...] Team Providers + +------+ + | Care Principal Developer Name | Role | Phone | [...] of this encounter Progress Notes Interface, Supervisor Ticket Sales In - 06/11/2006 3:03 AM PDTCLINIC DATE: [...] clinic today. It was done in a [place] in [facility] on December 08, 2001. There is mild [...] on an as-needed basis. Vince Krishna M.D. [facility] / [id number] / [id number] / [id number] / cc: Ninfa Guillen M.D. [address] [place] [id number] Kalyan Wu M.D. [facility] Orthopedics and Rehabilitation Lloyd Garcia M.D. [facility] Orthopedics and RehabiliationElectronically signed by Interface, Supervisor Ticket Sales In at 0 06/11/2006 3:03 AM PDTdocumented in this encounter Plan of Treatment Not on filedocumented as of this encounter Visit Diagnoses Not on filedocumented in this encounter"
--- OUTSIDE RECORDS SUMMARY | ~2020-05-01 | XMS | Encounter Summary ---
Demographics + + + | Address | [address] | | | [place] [address] | + + + | Home Phone [...] Providers + +------+ + | Care Payroll Accountant Name | Role | Phone | + +------+ + PCP | Unavailable | + +------+ + Encounter Details +--------+ + + + + | Date | Type | Department | Care Team | Description | +--------+ + + + + | 12/23/ | Boat Hoist Operator Helper | Orthopaedics at | Gino Baker MD | Osteoarthritis of | | 2006 | | [facility] [address] | [address] | Hip (Primary Dx) | | | | [address] | [place] Ay[place] | | | | | Mailcode: [id number] | [place] [address] | | | | | [facility] | | | | | | [place], [place] | | | | | | [address] | | | | | | [phone] | | | +--------+ + + + [...]
--- OUTSIDE RECORDS SUMMARY | ~2020-05-01 | XMS | Encounter Summary ---
Demographics + + + | Address | [address] | | | [place] [address] | + + + | Home Phone [...] Providers + +------+ + | Care Director Trust Name | Role | Phone | + [...] as of this encounter Progress Notes Interface, Services Clerk In - 08/28/2006 3:05 AM PSTCLINIC [...] clinical evaluation. Benson Cooper M.D. / SALE[place] [id number] / [id number] / [id number] / cc: Lloyd Garcia M.D. documented in this encounter Plan of Treatment Not on filedocumented as of this encounter Visit Diagnoses Not on filedocumented in this encounter"
--- OUTSIDE RECORDS SUMMARY | ~2020-05-01 | XMS | Encounter Summary ---
Demographics + + + | Address | [address] | | | [place] [address] | + + + | Home Phone [...] Team Providers + +------+ + | Care Accountant Clerk Name | Role | Phone | [...] | | | | [address] | [facility] | | | | | Mailcode: [id number] | [place], [place] | | | | | [facility] | [address] | | | | | [place], [place] | [phone] | | | | | [address] | | | | | | [phone] | | | +--------+ + + + [...]
--- OUTSIDE RECORDS SUMMARY | ~2020-05-01 | XMS | Encounter Summary ---
Demographics + + + | Address | [address] | | | [place] [address] | + + + | Home Phone [...] Team Providers + +------+ + | Care Frame Hand Name | Role | Phone | [...] | | | Surgery [address] | [place], [place] | | | | | [address] | [address] | | | | | Mailcode: [id number] | [phone] | | | | | [facility] | | | | | | [place], [place] | | | | | | [address] | | | | | | [phone] | | | +--------+ + + + [...] + + + | [facility] | [address] | [place] [address] | | | LABORATORY | | | [...] + + + + + | [facility] | [address] | [place] [address] | | | PATHOLOGY | [address] | | | + + + + + | [facility] | [address] | [place] [address] | | | PATHOLOGY | [address] [...] DEPARTMENT OF | [address] | [place] [address] | | | PATHOLOGY | [address] | | | + + + + + | [facility] DEPARTMENT OF | [address] | [place] [address] | | | PATHOLOGY | [address] [...] + + + + | [facility] DEPARTMENT OF | [address] | [place] [address] | | | PATHOLOGY | [address] | | | + + + + + | [facility] DEPARTMENT OF | [address] | [place] [address] | | | PATHOLOGY | [address] | | | + + + + + documented in this encounter Visit Diagnoses Not on filedocumented in this encounter
--- OUTSIDE RECORDS SUMMARY | ~2020-05-01 | XMS | Encounter Summary ---
Demographics + + + | Address | [address] | | | [place] [address] | + + + | Home Phone [...] Pavilion | | | | | | [place], [place] | | | | | | [address] | | | | | | [phone] | | | +--------+ + + + [...] + + | Performing | Address | City/State[facility] | Phone Number | | [...]
--- OUTSIDE RECORDS SUMMARY | ~2020-05-01 | XMS | Encounter Summary ---
Demographics + + + | Address | [address] | | | [place] [address] | + + + | Home Phone [...] Providers + +------+ + | Care Stone Rubber Name | Role | Phone | [...] as of this encounter Discharge Summaries Interface, Sales Order Coordinator In 04/28/2005 5:10 PM PDTAdmission Date: 09/25/2003 [...]
--- OUTSIDE RECORDS SUMMARY | ~2020-05-01 | XMS | Encounter Summary ---
Demographics + + + | Address | [address] | | | [place] [address] | + + + | Home Phone [...] Providers + +------+ + | Care Spring Encaser Name | Role | Phone | + [...] as of this encounter Progress Notes Interface, Network Manager In - 04/28/2005 5:10 PM PDTClinic [...] has been at her friend's house in [facility] and has been receiving IV antibiotics via [...] Benson Boone M.D. Lloyd Garcia M.D. / [id number] / [id number] / [id number] / [id number] Tdocumented in this encounter Plan of Treatment Not on filedocumented as of this encounter Visit Diagnoses Not on filedocumented in this encounter"
--- OUTSIDE RECORDS SUMMARY | ~2020-05-01 | XMS | Encounter Summary ---
Demographics + + + | Address | [address] | | | [place] [address] | + + + | Home Phone | | + + + | Preferred Language | Unknown | + + + | Marital Status | | + + + | Baptism Affiliation | 1076 | + + + [...] Providers + +------+ + | Care Credit Interviewer Name | Role | Phone | + +------+ + PCP | Unavailable | + +------+ + Encounter Details +--------+ + + + + | Date | Type | Department | Care Team | Description | +--------+ + + + + | 05/07/ | Hospital | [facility] | Helio Ahn | | | 2001 | Encounter | MED CTR SLEEP | MD [address] | | | | | CENTER [address] | [address] | | | | | [place] | [place] [address] | | | | | [address] | [phone] | | | | | [phone] | | | +--------+ + + + [...] [place] | | | | | | [address] | | | | | | | | +--------+---------+ + + + documented as of this encounter Visit Diagnoses Not on filedocumented in this encounter"
--- OUTSIDE RECORDS SUMMARY | ~2020-05-01 | XMS | Encounter Summary ---
Demographics + + + | Address | [address] | | | [place] [address] | + + + | Home Phone | | + + + | Preferred Language | Unknown | + + + | Marital Status | | + + + | Jainism Affiliation | 1076 | + + + | Race | Unknown | + + + | Ethnic Group | Unknown | + + + Author + + + | Author | [facility] | | | and [place] | + + + | Organization | [facility] | | | [...] Providers + +------+ + | Care Data Analyst Report Writer Name | Role | Phone | [...] + + | 01/24/ | Office | [facility] | Xiang Sepulveda, | Back pain, | | 2019 | Visit | [facility] | DO [address] | unspecified back | | | | [address] | [place], [place] | location, | | | | [address] | [address] | unspecified back | | | | [place], [place] | | pain laterality, | | | | [address] | | unspecified | | | | [phone] | | chronicity (Primary | | | [...] left; | | | | | | retirement current | | | | | | [...] the other nostri l. Talk to your horse race starter regarding the use of this medicine in children. While this drug m ay be prescribed for children as young as newborns for selected conditions, precautions do a pply. What side effects may I notice from receiving this medicine? Side effects that you should report to your doctor or health youth care specialist as soon as p ossible: allergic reactions like skin rash, itching or hives, swelling of the face, lips, or tong ue breathing problems fast, irregular heartbeat high blood pressure pain that was controlled by narcotic pain medicine seizures Side effects that usually do not require medical attention (report to your doctor or health youth care specialist if they continue or are bothersome): anxious [...] phone number of your doctor or health youth care specialist and local hospital ready. You may need to have additional doses of this medicine. Each nasal spray contains a single dose. Some emergencies may require additional doses. After use, bring the treated person to the nearest hospital or call 911. Make sure the peri swann health youth care specialist knows that the person has received an [...] but not limited to phys ical therapy, medical care evaluation specialist, acupuncture, massage therapy, and nutritional health [...] Author Status Filed Medication Agreement Antonella Sprague, Housing Management Officer Active 11/25/2019 10:52 AM Pain Contract- Dr. Sepulveda 11/25/2019 PEG Pain screening tool (Pain, enjoyment, general activity) Total score: (Printable questionnaires in Nauruan ) Interpretation of Total Score: PEG scores are used to track changes over time. It should de crease after therapy has begun. Last 4 PEG Scores: No flowsheet data found. Opioid Risk Tool (ORT): Total Score Temp: 36.6 C (97.8 F) Temp Source: Oral Pulse: 111 Resp: 18 BP: (!) 154/91 SpO2: 97 % (From Chronic Pain tab; printable questionnaires in Nauruan) Interpretation of Total Score: 0 to 3 [...] andrés: Rustam Schmid MD; Location: [facility] [place] [place] Review of Systems Constitutional: Positive [...] reviewed, listed controlled substances are consistent with [facility] prescriptions and patient reported use. [...] imited to physical therapy, massage therapy, acupuncture, medical care evaluation specialist, along with jabari mmended psychological counseling, either privately, or in group sessions offered by private care individuals, community services, or yazidism organizations. Appropriate referrals were made at patient [...] and coordination of care with other health manager care and monitoring labs results, other test results and imagin g including [facility] and/or [facility] prescription monitoring systems. This document has been created using [email or web address] Voice Recognition software and [employer]. The entry has been reviewed for content and accuracy, but there may still exist "sound alike" artist consultant word errors and/or unintended additions and deletions. [...] [place] | | | | | | [id number] | | | | | | | [...] pain, chronic, left | + + | manager long term care current use of opiate analgesic Encounter for long-term (current) use of | | other medications | + + documented in this encounter
--- OUTSIDE RECORDS SUMMARY | ~2020-05-01 | XMS | Encounter Summary ---
Demographics + + + | Address | [address] | | | [place] [address] | + + + | Home Phone [...] Providers + +------+ + | Care Rubber Moulding Machine Operator Name | Role | Phone [...] Pavilion | | | | | | [place], [place] | | | | | | [address] | | | | | | [phone] | | | +--------+ + + + [...] | + + + + + | [facility] | [address] [facility] | [place] [address] | | | PATHOLOGY | [address] | | | + + + + + | [facility] | [address] [facility] | [place] [address] | | | PATHOLOGY | [address] [...] | + + + + + | [facility] DEPARTMENT OF | [address] | [place] [address] | | | PATHOLOGY | [address] | | | + + + + + | [facility] DEPARTMENT | [address] | [place] [address] | | | PATHOLOGY | [address] [...] | + + + + + | [facility] | [address] | [place] [address] | | | PATHOLOGY | [address] | | | + + + + + | [facility] | [facility] [address] | [place] [address] | | | PATHOLOGY | [address] [...] | + + + + + | [facility] DEPARTMENT OF | [address] | [place] [address] | | | PATHOLOGY | [address] | | | + + + + + | [facility] DEPARTMENT OF | [address] | [place] [address] | | | PATHOLOGY | [address] [...] | | + +---------+ + + | [facility] DEPARTMENT OF | | | | | RADIOLOGY | | | | + +---------+ + + documented in this encounter Visit Diagnoses Not on filedocumented in this encounter"
--- OUTSIDE RECORDS SUMMARY | ~2020-05-01 | XMS | Encounter Summary ---
Demographics + + + | Address | [address] | | | [place] [address] | + + + | Home Phone [...] Team Providers + +------+ + | Care Aircrewman Name | Role | Phone | + [...]
--- OUTSIDE RECORDS SUMMARY | ~2020-05-01 | XMS | Encounter Summary ---
Demographics + + + | Address | [address] | | | [place] [address] | + + + | Home Phone [...] Providers + +------+ + | Care Dental Appliance Mechanic Name | Role | Phone | + +------+ + | Travis Mcginnis MD | PCP | | + +------+ + Encounter Details +--------+ + + + + | Date | Type | Department | Care Team | Description | +--------+ + + + + | 08/03/ | Hospital | Diagnostic Imaging | | | | 2009 | Encounter | Services at [facility] | | | | | | [address] | | | | | | [place] | | | | | | [facility] | | | | | | [place], [place] | | | | | | [address] | | | | | | [phone] | | | +--------+ + + + [...] + + + +---------+ + + | [place] [facility] | Take by [...] of | | | | | | [id number] | | | | | | corner, [...]
--- OUTSIDE RECORDS SUMMARY | ~2020-05-01 | XMS | Encounter Summary ---
Demographics + + + | Address | [address] | | | [place] [address] | + + + | Home Phone [...] Team Providers + +------+ + | Care Dermatology Physician Name | Role | Phone | + +------+ + | Marta Jenkins DOOR FRAME ASSEMBLER MACHINE | PCP | | + +------+ + Encounter Details +--------+ + + + + | Date | Type | Department | Care Team | Description | +--------+ + + + + | 06/11/ | Ancillary | Registration [address] | Lloyd Garcia MD | | | 2005 | Registratio | [address] [facility] | | | | | n | Jamie Mailcode: [id number] | | | | | | [place], [place] | | | | | | [address] | | | | | | [phone] | | | +--------+ + + + [...]
--- OUTSIDE RECORDS SUMMARY | ~2020-05-01 | XMS | Encounter Summary ---
Demographics + + + | Address | [address] | | | [place] [address] | + + + | Home Phone [...] Team Providers + +------+ + | Care Scarfing Machine Operator Name | Role | Phone [...] | | [address] | [address] [place], | | | | | Mailcode: [id number] | [place] [address] | | | | | [facility] | | | | | | [place] | | | | | | [address] | | | | | | [phone] | | | +--------+ + + + [...]
--- OUTSIDE RECORDS SUMMARY | ~2020-05-01 | XMS | Encounter Summary ---
Demographics + + + | Address | [address] | | | [place] [address] | + + + | Home Phone [...] Team Providers + +------+ + | Care Transition Mgr Rn Name | Role | Phone | [...]
--- OUTSIDE RECORDS SUMMARY | ~2020-05-01 | XMS | Encounter Summary ---
Demographics + + + | Address | [address] | | | [place] [address] | + + + | Home Phone [...] Team Providers + +------+ + | Care Apprentice Instrument Technician Name | Role | Phone | [...] Pavilion | | | | | | [place], [place] | | | | | | [address] | | | | | | [phone] | | | +--------+ + + + [...] ON | | | | | | [facility], ACC# [id number], | | | | | | DONE [...]
--- OUTSIDE RECORDS SUMMARY | ~2020-05-01 | XMS | Encounter Summary ---
Demographics + + + | Address | [address] | | | [place] [address] | + + + | Home Phone | | + + + | Preferred Language | Unknown | + + + | Marital Status | | + + + | Rastafari Affiliation | 1076 | + + + | Race | Unknown | + + + | Ethnic Group | Unknown | + + + Author + + + | Author | [facility] | | | and [place] | + + + | Organization | [facility] | | | [...] Providers + +------+ + | Care Electric Track Switch Maintainer Name | Role | Phone | + [...] + + + + | 11/25/ | Anesthesia | [facility] | Helio Barkely | | | 2017 | Event | [facility] | MD Tien [address] | | | | | [address] | [address] | | | | | [place] | [place] [address] | | | | | [address] | | | | | | [phone] | | | +--------+ + + + + Anesthesia Record + + + + + | Procedure Name | Responsible | Anesthesia Start | Anesthesia Stop Time | | | Anesthesiologist | Time | | + + + + + | RIGHT URETEROSCOPY | Helio Irvin | 11/25/16 09 | 11/25/16 1105 | | W/ LASER LITHOTRIPSY | MD Filippo | | | | RIGHT URETERAL | | | | | STENT PLACEMENT. | | | | | (Right Pelvis) | | | | + + + + + +----+---+ + + | Da | T | Event | Comment | | te | i | | | | | m | | | | | e | | | +----+---+ + + | 02 | 0 | An Checkout | Pre-use anesthesia machine/equipment checkout. | | /2 | 8 | | | | 6/ | 4 | | | | 20 | 4 | | | | 17 | | | | +----+---+ + + | | 0 | | | | | 8 | | | | | 5 | | | | | 1 | | | +----+---+ + + | | 0 | An Start | Reassessment prior to anesthesia induction/procedure. | | | 9 | | | | | 2 | | | | | 8 | | | +----+---+ + + | | 0 | AN | Per surgeon request - received abx at [facility] | | | 9 | Antibiotic | | | | 3 | declined | | | | 5 | | | +----+---+ + + | | 0 | Preoxygenat | | | | 9 | ed | | | | 3 | | | | | 5 | | | +----+---+ + + | | 0 | An | | | | 9 | Induction | | | | 3 | | | | | 7 | | | +----+---+ + + | | 0 | An | | | | 9 | Intubation | | | | 3 | | | | | 8 | | | +----+---+ + + | | 0 | AN Bite | | | | 9 | Block | | | | 3 | | | | | 9 | | | +----+---+ + + | | 0 | an naida now | | | | 9 | | | | | 4 | | | | | 5 | | | +----+---+ + + | | 0 | Pre-Procedu | | | | 9 | ral Timeout | | | | 4 | Completed | | | | 5 | | | +----+---+ + + | | 0 | First | | | | 9 | Inc/Proc St | | | | 4 | | | | | 8 | | | +----+---+ + + | | 0 | [place]a | | | | 9 | 43-degrees | | | | 5 | | | | | 0 | | | +----+---+ + + | | 0 | Quick Note | Purulent drainage per surgeon | | | 9 | | | | | 5 | | | | | 5 | | | +----+---+ + + | | 1 | [place] off | | | | 0 | | | | | 5 | | | | | 0 | | | +----+---+ + + | | 1 | AN No | TOF 4/4 with sustained tetanus. | | | 0 | Residual | | | | 5 | NMB | | | | 2 | | | +----+---+ + + | | 1 | Breathing | | | | 0 | Spontaneous | | | | 5 | ly | | | | 2 | | | +----+---+ + + | | 1 | Oropharynx | | | | 0 | Suctioned | | | | 5 | | | | | 2 | | | +----+---+ + + | | 1 | Moving | | | | 0 | Purposefull | | | | 5 | y | | | | 9 | | | +----+---+ + + | | 1 | Extubated | | | | 0 | Awake | | | | 5 | | | | | 9 | | | +----+---+ + + | | 1 | an stop | | | | 0 | data | | | | 5 | | | | | 9 | | | +----+---+ + + | | 1 | An Stop | Patient handed off to recovery nurse. | | | 0 | | | | | 5 | | | +----+---+ + + +------+ | Meds | +------+ + + + | Name | Total | + + + | fentaNYL | 175 mcg | + + + | lidocaine 2% | 100 mg | + + + | propofol (DIPRIVAN) injection | 200 mg | | (bolus) (20 mL) | | + + + | succinylcholine | 140 mg | + + + | dexamethasone | 10 mg | + + + | ondansetron | 4 mg | + + + | lidocaine 1% | 50 mg | + + + | NS (Infusion) | 1,000 mL | + + + | LR (Infusion) | 0 mL | + + + + + | Name | + + | N2O Flow Rate (L/Min) | + + | O2 Flow Rate (L/Min) | + + | Insp O2 | + + | Exp ELIOT | + + | Air Flow Rate (L/Min) | + + + + | No blood administrations on file. | + + +--------+ + + + | Type | Details | Placement | Removal | +--------+ + + + | Periph | 11/25/16; yes; Left; Antecubital; | 11/25/16 0000 by | 12/22/18 1643 by | | kaylal | 18 gauge; 12/22/18 | Marium Cuenca RN | User Epic | | IV | (Removed/Completed by utility); | | | | | 1643 (Removed/Completed by | | | | | utility) | | | +--------+ + + + | Airway | Placement Date: 11/25/16; | 11/25/16951 by | 11/25/16 105 by | | | Placement Time: 951 (created via | Helio Irvin | Helio Tien | | | procedure documentation); Mask | MD Filippo | MD Filippo | | | Ventilation: EZ, N/A; Airway | | | | | Grade: 1; External Maneuvers: CP; | | | | | Successful Technique: video | | | | | scope; Laryngoscope Blade Size: | | | | | 3; Attempts: 1; Airway Type: | | | | | endotracheal; Size: 7; Airway | | | | | Tube Secured At: 22; Trauma: | | | | | none; Other Equipment: stylette; | | | | | Placement Check: exhaled CO2 | | | | | detection device, bilateral chest | | | | | rise, breath sounds equal | | | | | bilaterally; Removal Date: | | | | | 11/25/16; Removal Time: 1059; | | | | | Additional Comments: Strict RSI | | | | | given chronic nausea and | | | | | gastroparesis. Small ramp used. | | | | | Grade 1 with Razo. Notable for | | | | | large amounts of redundant | | | | | tissue and with cricoid pressure, | | | | | very difficult to mobilize jaw - | | | | | would recommend larger ramp in | | | | | the future. 2% lidocaine LTA used | | | | | prior to ETT placement. OA | | | | | placed after examining airway for | | | | | signs of trauma in anticipation | | | | | of extubation. Atraumatic airway | | | | | manipulation. | | | +--------+ + + + | Read | 11/25/16; 1000; Bilateral; | 11/25/16 1000 by | 12/23/18 1342 by | | only - | vagina; 12/23/18 | Selena Nielsen RN | User Epic | | | (Completed/Removed by Utility); | | | | Incisi | 1342 (Completed/Removed by | | | | on | Utility) | | | +--------+ + + + documented in this encounter Social History + +-------+ +--------+------+ | Tobacco [...] + + documented as of this encounter OR Notes Anesthesia Postprocedure Evaluation - Helio Barkley MD - 11/25/2016 11:11 AM PSTFo rmatting of this note might be different from the original. ANESTHESIA POSTANESTHESIA EVALUATION [place] Gal[place] 56 y.o. female 1960 [id number] Procedure(s) RIGHT URETEROSCOPY W/ LASER LITHOTRIPSY RIGHT URETERAL STENT PLACEMENT. (Rig ht Pelvis) Cooperates? Yes Mental Status Performs simple tasks. Respiratory Satisfactory - Airway patent (self maintained). Cardiovascular Satisfactory Blood pressure and heart rate acceptable Temperature Satisfactory Pain Satisfactory N/V Control Satisfactory Hydration Satisfactory No signs of dehydration Complications None apparent Filed Vitals: 11/25/16 1100 11/25/16 1105 11/25/16 1106 BP: 106/63 106/63 Pulse: 112 110 95 Temp: 36.7 C (98.1 F) Resp: 18 18 20 SpO2: 92% 95% 96% Electronically signed by Helio Barkley MD 11/25/2016 11:11 [facility] nesthesia Proc saurabh Mccarthy - Helio Barkley MD - 11/25/2016 9:51 AM PSTAssociated Order(s): FELICIANO ROY NOTEAnesthesia Airway Placement Preprocedure check: patient identified, oxygen, airway assessed, suction, airway equipment checked and patient reassessment prior to induction Rapid Sequence Induction: yes Mask ventilation: easy and N/A External maneuver: cricoid pressure Successful technique: videoscope Laryngoscope blade size: 3 Airway grade: 1 (Full view of glottis) Other equipment: stylette Attempts: 1 Airway type: endotracheal Size: 7 Cuffed: cuffed Route, reference point: right side of mouth Tube depth: 22 cm Tube secured with: adhesive tape Trauma: none Tube placement verification: bilateral chest rise, equal bilateral breath sounds and carbon dioxide detection Performing provider: HELIO BARKLEY Assisted by: BONIFACIO MENG Comments: Strict RSI given chronic nausea and gastroparesis. Small ramp used. Grade 1 with Razo. Notable for large amounts of redundant tissue and with cricoid pressure, very diffi cult to mobilize jaw - would recommend larger ramp in the future. 2% lidocaine LTA used prio r to ETT placement. OA placed after examining airway for signs of trauma in anticipation of extubation. Atrauma tic airway manipulation. Electronically Signed by: Helio Barkley MD ESig date/time: 9:51 nesthesia Prep rocedure Evaluation - Helio Barkley MD - 11/25/2016 8:50 AM PST ANESTHESIA PREANESTHESIA EVALUATION Shelby Galdamez 56 y.o. female 1960 [id number] Procedure(s): RIGHT URETEROSCOPY W/ LASER LITHOTRIPSY (Right Pelvis) Medical history, anesthesia, medications, allergy, NPO status verified histories reviewed. ECG reviewed. Labs reviewed. Review of Systems / Med History Anesthesia History No anesthesia complications. Denies any anesthesia issues. (-) PONV, difficult intubation Cardiovascular (+) hypertension , Exercise tolerance <4 METS Pulmonary Received albuterol this am. (+) shortness of breath, asthma, COPD, smoking history(+) sleep apnea: known Neurology (+) chronic pain Psychology (+) depression Renal K 4.0 on outside labs. (+) renal/ureteral stones(-) chronic renal insufficiency Gastrointestinal/Hepatic Chronic nausea. (+) reflux/GERD, hyperlipidemia Endocrine (+) obesity (BMI 51): Other Negative except where noted below. Physical Exam Airway MP IV, TM >3 FB, Mouth opening >2 FB. Neck: full ROM, extends >30 degrees. Dental ; (+) missing teeth, dentures-upper and Poor dentition. CV Rhythm regular. Rate normal. Pulm Clear to auscultation bilaterally. Clear anteriorly (-) wheezing and rhonchi. Neuro Somnolent Anesthesia Plan ASA 4 Type: General (GETA vs LMA). Induction: Intravenous. Potential problems: None anticipated. Monitors: Standard ASA monitors. Consent statement:Anesthetic plan, alternatives, risks and benefits discussed with patient. Risks discussed included (but were not limited to): pain, respiratory events, dental injury , muscle aches, perioperative CV events, sore throat, nausea, voice injury, ICU placement, h eart problems, post-op intubation, delirium (All questions answered before proceeding to OR) , . Consenting person understands and agrees to proceed. PARQ. Electronically Signed by: Helio Barkley MD ESig date/time: 11/25/2016 9:08 documented in t his encounter Plan of Treatment +--------+---------+ + + + | Date | Type | Specialty | Care Team | Description | +--------+---------+ + + + | 05/23/ | Office | Pain Medicine | Xiang Sepulveda, | | | 2019 | Visit | | DO [address] | | | | | | [place] | | | | | | [id number] | | | | | | | | +--------+---------+ + + + documented as of this encounter Procedures + +--------+ + + + | Procedure Name | Priori | Date/Time | Associated Diagnosis | Comments | | | ty | | | | + +--------+ + + + | ANE AIRWAY NOTE | Routin | 11/25/2016 | | Results for this | | | e | 9:56 AM | | procedure are in the | | | | PST | | results section. | + +--------+ + + + documented in this encounter Results Anesthesia Airway Note (11/25/2016 9:56 AM PST) + + + | Narrative | Performed At | + + + | Helio Barkley MD 11/25/2016 9:56 Anesthesia Airway | | | Placement Preprocedure check: patient identified, oxygen, airway | | | assessed, suction, airway equipment checked and patient reassessment | | | prior to induction Rapid Sequence Induction: yes Mask | | | ventilation: easy and N/A External maneuver: cricoid pressure | | | Successful technique: videoscope Laryngoscope blade size: 3 | | | Airway grade: 1 (Full view of glottis) Other equipment: stylette | | | Attempts: 1 Airway type: endotracheal Size: 7 Cuffed: cuffed | | | Route, reference point: right side of mouth Tube depth: 22 cm Tube | | | secured with: adhesive tape Trauma: none Tube placement | | | verification: bilateral chest rise, equal bilateral breath sounds | | | and carbon dioxide detection Performing provider: HELIO BARKLEY | | | TIEN Assisted by: BONIFACIO MENG Comments: Strict RSI | | | given chronic nausea and gastroparesis. Small ramp used. Grade 1 | | | with Razo. Notable for large amounts of redundant tissue and with | | | cricoid pressure, very difficult to mobilize jaw - would recommend | | | larger ramp in the future. 2% lidocaine LTA used prior to ETT | | | placement. OA placed after examining airway for signs of trauma in | | | anticipation of extubation. Atraumatic airway manipulation. | | | Electronically Signed by: Helio Barkley MD | | | ESig date/time: 11/25/2016 9:51 | | | | | + + + documented in this encounter Visit Diagnoses Not on filedocumented in this encounter Administered Medications + +--------+ +-------+------+------+ | Medication Order | MAR | Action | Dose | Rate | Site | | | Action | Date | | | | + +--------+ +-------+------+------+ | dexamethasone (DECADRON) 10 | Given | 11/25/19 | 10 mg | | | | mg/mL injection Intravenous, | | 17 9:43 | | | | | PRN, Starting 11/25/16 at | | AM PST | | | | | 0943, Anesthesia Intra-op | | | | | | + +--------+ +-------+------+------+ +---+---+ | | | +---+---+ + +-------+ +--------+---+---+ | fentaNYL (PF) injection | Given | 11/25/19 | 25 mcg | | | | Intravenous, PRN, Pain, Starting | | 17 10:38 | | | | | 11/25/16 at 0935, Anesthesia | | AM PST | | | | | Intra-op | | | | | | + +-------+ +--------+---+---+ +-------+ +--------+---+---+ | Given | 11/25/19 | 25 mcg | | | | | 17 10:24 | | | | | | AM PST | | | | +-------+ +--------+---+---+ | Given | 11/25/19 | 25 mcg | | | | | 17 10:08 | | | | | | AM PST | | | | +-------+ +--------+---+---+ +---+---+ | | | +---+---+ + +---------+ +---+---+---+ | lactated ringers (LR) infusion | New Bag | 11/25/19 | | | | | Intravenous, CONTINUOUS PRN, | | 17 10:47 | | | | | Starting 11/25/16 at 1047, | | AM PST | | | | | Anesthesia Intra-op | | | | | | + +---------+ +---+---+---+ +---+---+ | | | +---+---+ + +-------+ +-------+---+---+ | lidocaine (PF) 1% injection | Given | 11/25/19 | 50 mg | | | | Intravenous, PRN, Starting Sun | | 17 9:37 | | | | | 11/25/16 at 0937, Anesthesia | | AM PST | | | | | Intra-op | | | | | | + +-------+ +-------+---+---+ +---+---+ | | | +---+---+ + +-------+ +--------+---+---+ | lidocaine (PF) 2% injection | Given | 11/25/19 | 100 mg | | | | Intravenous, PRN, Starting Sun | | 17 9:37 | | | | | 11/25/16 at 0937, Anesthesia | | AM PST | | | | | Intra-op | | | | | | + +-------+ +--------+---+---+ +---+---+ | | | +---+---+ + +-------+ +------+---+---+ | ondansetron (ZOFRAN) injection | Given | 11/25/19 | 4 mg | | | | Intravenous, PRN, Nausea, | | 17 9:43 | | | | | Vomiting, Starting 11/25/16 at | | AM PST | | | | | 0943, Anesthesia Intra-op | | | | | | + +-------+ +------+---+---+ +---+---+ | | | +---+---+ + +-------+ +-------+---+---+ | propofol (DIPRIVAN) injection | Given | 11/25/19 | 20 mg | | | | Intravenous, PRN, Starting Sun | | 17 10:52 | | | | | 11/25/16 at 0937, Anesthesia | | AM PST | | | | | Intra-op | | | | | | + +-------+ +-------+---+---+ +-------+ +--------+---+---+ | Given | 11/25/19 | 180 mg | | | | | 17 9:37 | | | | | | AM PST | | | | +-------+ +--------+---+---+ +---+---+ | | | +---+---+ + +---------+ +---+---+---+ | sodium chloride 0.9% (NS) | New Bag | 11/25/19 | | | | | infusion Intravenous, CONTINUOUS | | 17 9:00 | | | | | PRN, Starting 11/25/16 at | | AM PST | | | | | 0900, Anesthesia Intra-op | | | | | | + +---------+ +---+---+---+ +---+---+ | | | +---+---+ + +-------+ +--------+---+---+ | succinylcholine (ANECTINE) | Given | 11/25/19 | 140 mg | | | | injection Intravenous, PRN, | | 17 9:37 | | | | | Starting 11/25/16 at 0937, | | AM PST | | | | | Anesthesia Intra-op | | | | | | + +-------+ +--------+---+---+ +---+---+ | | | +---+---+ documented in this encounter"
--- OUTSIDE RECORDS SUMMARY | ~2020-05-01 | XMS | Encounter Summary ---
Demographics + + + | Address | [address] | | | [place] [address] | + + + | Home Phone [...] Providers + +------+ + | Care Rn Neonatal Icu Name | Role | Phone | + [...] | Transcriptions | + + | Interface, Injury Prevention Coordinator In - 09/19/2005 9:05 PM PST Date: | | 10/01/2003Attending Surgeon: Lloyd Garcia M.D.Small Animal Veterinarian(s): | | Benson Boone M.D.Preoperative Diagnoses:Right hip [...] [facility] on July | | [facility] It was complicated by greater trochanter [...] Boone, | | Haleigh Garcia M.D.RT / [id number] / [id number] / [id number] / [id number]: 10/01/2003T: 10/02/2003 | |2002, was demonstrating that [...] | | | |RT / HS | |[id number] / [id number] / [id number] / [id number] | | | | | + + documented in this encounter Visit Diagnoses Not on filedocumented in this encounter"
--- OUTSIDE RECORDS SUMMARY | ~2020-05-01 | XMS | Encounter Summary ---
Demographics + + + | Address | [address] | | | [place] [address] | + + + | Home Phone [...] Team Providers + +------+ + | Care Printing Supplies Sales Representative Name | Role | Phone [...] Pavilion | | | | | | [place], [place] | | | | | | [address] | | | | | | [phone] | | | +--------+ + + + [...]
--- OUTSIDE RECORDS SUMMARY | ~2020-05-01 | XMS | Encounter Summary ---
Demographics + + + | Address | [address] | | | [place] [address] | + + + | Home Phone [...] Team Providers + +------+ + | Care Men'S Swim Coach Name | Role | Phone | [...] | | | | Mailcode: [id number] | [place], [place] | | | | | [facility] | [address] | | | | | [place], [place] | [phone] | | | | | [address] | | | | | | [phone] | | | +--------+ + + + [...]
--- OUTSIDE RECORDS SUMMARY | ~2020-05-01 | XMS | Encounter Summary ---
Demographics + + + | Address | [address] | | | [place] [address] | + + + | Home Phone [...] Team Providers + +------+ + | Care Glassware Maker Name | Role | Phone | + +------+ + | Travis Mcginnis MD | PCP | | + +------+ + Encounter Details +--------+ + + + + | Date | Type | Department | Care Team | Description | +--------+ + + + + | 02/20/ | Hospital | Diagnostic | | | | 2009 | Encounter | Radiology at [facility] | | | | | | [address] | | | | | | [facility] | | | | | | [place], [address] [place] [address] | | | | | | [place], [place] | | | | | | [address] | | | | | | [phone] | | | +--------+ + + + [...] | + + + +---------+--------+ + | Wilder-3 Fatty | Take by mouth. | | [...] X-RAY HIP 2 VIEWS | Routin | 02/20/2010 | Hip replacement | Results for this | | RIGHT W/ PELVIS 1 | e | 2:13 PM | | procedure are in the [...] | | | | | | [facility] | | | | | | PENDING [...]
--- OUTSIDE RECORDS SUMMARY | ~2020-05-01 | XMS | Encounter Summary ---
Demographics + + + | Address | [address] | | | [place] [address] | + + + | Home Phone [...] Team Providers + +------+ + | Care Pan Washer Name | Role | Phone | [...] | | | | Mailcode: [id number] | [place], [place] | | | | | [facility] | [address] | | | | | [facility] [place] | [phone] | | | | | [address] | | | | | | [phone] | | | +--------+ + + + [...]
--- OUTSIDE RECORDS SUMMARY | ~2020-05-01 | XMS | Encounter Summary ---
Demographics + + + | Address | [address] | | | [place] [address] | + + + | Home Phone [...] Providers + +------+ + | Care Payroll Administrator Name | Role | Phone | [...] | | | | Mailcode: [id number] | [facility] [place] | | | | | [facility] | [address] | | | | | [place], [place] | [phone] | | | | | [address] | | | | | | [phone] | | | +--------+ + + + [...]
--- OUTSIDE RECORDS SUMMARY | ~2020-05-01 | XMS | Encounter Summary ---
Demographics + + + | Address | [address] | | | [place] [address] | + + + | Home Phone [...] Team Providers + +------+ + | Care Thermodynamicist Name | Role | Phone | + [...] | unspecified | [address] | [address] [place], | | | | | whether | [place], [place] | [place] | | | | | generalized | [address] | [address] | | | | | or | Phone: | Phone: | | | | | localized, | [phone] | [phone] | | | | | pelvic | Fax: | Fax: | | | | | region and | [phone] | [phone] | | | | | thigh | | | | | | | Osteoarthrit | | | | | | | is of Hip | | | | | | | Procedures | | | | | | | [place] TOTAL HIP | | | | | | | | | | | | | | ARTHROPLASTY | | | | | | | [place] | | | | | | | RECONSTRUC | | | | | | | HIP | | | | | | | SOCKET,RESEC | | | | | | | FEM HEAD | | | | | | | [place] REMOVAL | | | | | | | OF ISCHIAL | | | | | | | [place] | | | | | | | [...] Pavilion | | | | | | [place], [place] | | | | | | [address] | | | | | | [phone] | | | +--------+---------+ + + + [...] charted by JORDY Germain. KALYAN COLBY MD [facility] [address] [place] [address] Mailcode: Pv[address] [place] [address] Tesfaye Haskins PA-C - 10/14/2008 [...] is being worked up now by a tax collection coordinator for this issue. OBJECTIVE: - On examination [...]
--- OUTSIDE RECORDS SUMMARY | ~2020-05-01 | XMS | Encounter Summary ---
Demographics + + + | Address | [address] | | | [place] [address] | + + + | Home Phone [...] Providers + +------+ + | Care Core Dipper Name | Role | Phone | + [...] [facility] | | | | | | [address] | | | | | | [facility] | | | | | | [place], [facility] | | | | | | [place], [place] | | | | | | [address] | | | | | | [phone] | | | +--------+ + + + [...] + + + +---------+ + + | Heyworth-3 Fatty | Take by mouth. | | [...] | | + +---------+ + + | [facility] DEPARTMENT OF | | [...]
--- OUTSIDE RECORDS SUMMARY | ~2020-05-01 | XMS | Encounter Summary ---
Demographics + + + | Address | [address] | | | [place] [address] | + + + | Home Phone [...] Team Providers + +------+ + | Care Perfect Binder Feeder Offbearer Name | Role | Phone | + [...] W | | | | ON | [facility] 4th Floor [address] | | | | | [address] | [address] [place], [place] | | | | | Mailcode: CH4S | [address] | | | | | [facility] | | | | | | and Healing, | | | | | | Building [address]th Floor | | | | | | [place], [place] | | | | | | [address] | | | | | | [phone] | | | +--------+ + + + [...]
--- OUTSIDE RECORDS SUMMARY | ~2020-05-01 | XMS | Encounter Summary ---
Demographics + + + | Address | [address] | | | [place] [address] | + + + | Home Phone [...] Team Providers + +------+ + | Care Early Intervention School Psychologist Name | Role | Phone | + [...] Pavilion | | | | | | [place], [place] | | | | | | [address] | | | | | | [phone] | | | +--------+ + + + [...]
--- OUTSIDE RECORDS SUMMARY | ~2020-05-01 | XMS | Encounter Summary ---
Demographics + + + | Address | [address] | | | [place] [address] | + + + | Home Phone [...] Team Providers + +------+ + | Care Furnace Repair Mechanic Name | Role | Phone | [...] | | | | | | [address] [place], [place] | | | | | | [address] | | | | | | [phone] | | | +--------+---------+ + + + [...] | + + +--------+ + + | NC COLLECTION VENOUS | Procedures | Routin | [...] + + + + | PRODUCT | [id number] | | [facility] | | | UNIT [...] DEPARTMENT OF | [address] | [place] [address] | | | PATHOLOGY | [address] | | | + + + + + | [facility] DEPARTMENT OF | [address] | [place] [address] | | | PATHOLOGY | [address] [...] Performed At | + + + | [id number] Estimated GFR > 60 mL/min/1.73 sq m if non- | [facility] | | Iraqi [id number] Estimated GFR > 60 mL/min/1.73 sq m if | DEPARTMENT OF | | [place] GFR is estimated using the MDRD equation [...] | + + + + + | [facility] | [facility] | [place] [address] | | | PATHOLOGY | [address] | | | + + + + + | [facility] | [address] [place] [address] | [place] [address] | | | PATHOLOGY | [address] [...] [facility] DEPARTMENT OF | [address] [facility] | [place] [address] | | | PATHOLOGY | [address] | | | + + + + + | [facility] DEPARTMENT OF | [address] [facility] | [place] [address] | | | PATHOLOGY | [address] [...] DEPARTMENT OF | [address] | [place] [address] | | | PATHOLOGY | [address] | | | + + + + + | [facility] DEPARTMENT OF | [address] | [place] [address] | | | PATHOLOGY | [address] [...] view image for the detailed interpretation from [employer] results. | CARDIOLOGY | | | | + + + + + + + + | Performing | Address | City/State/Zipcode | Phone Number | | Organization | | | | + + + + + | [facility] DEPT OF | [address] | [place], [place] | | | CARDIOLOGY | [facility] | [address] | | + + + + + | [facility] | [address] | [place], [place] | | | CARDIOLOGY | [address] | [address] | | + + + + + documented in this encounter Visit Diagnoses + + | Diagnosis | + + | Other specified pre-operative examination - Primary | + + documented in this encounter
--- OUTSIDE RECORDS SUMMARY | ~2020-05-01 | XMS | Encounter Summary ---
Demographics + + + | Address | [address] | | | [place] [address] | + + + | Home Phone [...] Providers + +------+ + | Care Clinical Liaison Name | Role | Phone | [...] [facility] | | | | | | [address] | | | | | | Loop Physician's | | | | | | [place], [facility] Floor | | | | | | [place], [place] | | | | | | [address] | | | | | | [phone] | | | +--------+ + + + [...] + + + +---------+ + + | [place]-3 Fatty | Take by mouth. | | [...] | | + +---------+ + + | [facility] DEPARTMENT OF | | | | | RADIOLOGY | | | | + +---------+ + + documented in this encounter Visit Diagnoses + + | Diagnosis | + + | Hip pain, right Pain in joint, pelvic region and thigh | + + documented in this encounter"
--- OUTSIDE RECORDS SUMMARY | ~2020-05-01 | XMS | Encounter Summary ---
Demographics + + + | Address | [address] | | | [place] [address] | + + + | Home Phone | | + + + | Preferred Language | Unknown | + + + | Marital Status | | + + + | Lutheran Affiliation | [id number] | + + + | Race | Unknown | + + + | Ethnic Group | Unknown | + + + Author + + + | Author | [facility] | | | and [place] | + + + | Organization | [facility] | | | [...] Providers + +------+ + | Care Residential Living Assistant Name | Role | Phone | + +------+ + PCP | Unavailable | + +------+ + Encounter Details +--------+ + + + + | Date | Type | Department | Care Team | Description | +--------+ + + + + | 10/05/ | Hospital | [facility] | Lei Greenwood | | | 2010 | Encounter | MED CTR XRAY [address] | [address] | | | | | [address] | [address] [place] | | | | | [place] [address] | [address] | | | | | [phone] | [phone] | | | | | | [...] [place] | | | | | | [id number] | | | | | | | | +--------+---------+ + + + documented as of this encounter Visit Diagnoses Not on filedocumented in this encounter"
--- OUTSIDE RECORDS SUMMARY | ~2020-05-01 | XMS | Encounter Summary ---
Demographics + + + | Address | [address] | | | [place] [address] | + + + | Home Phone [...] Team Providers + +------+ + | Care Inter Fold Roll Cutter Name | Role | Phone | + +------+ + | Travis Mcginnis MD | PCP | | + +------+ + Encounter Details +--------+ + + + + | Date | Type | Department | Care Team | Description | +--------+ + + + + | 02/20/ | Public Affairs Specialist | Orthopaedics at | Kalyan Arias MD | Hip replacement | | 2009 | | [facility] [address] | [address] | (Primary Dx) | | | | [address] | [facility] | | | | | Mailcode: [id number] | [facility] [place] | | | | | Phys[facility]ilion | [address] | | | | | [place], [place] | [phone] | | | | | [address] | | | | | | [phone] | | | +--------+ + + + [...] | | + +---------+ + + | [facility] DEPARTMENT OF | | | | | RADIOLOGY | | | | + +---------+ + + documented in this encounter Visit Diagnoses + + | Diagnosis | + + | Hip replacement - Primary Hip joint replacement by other means | + + documented in this encounter"
--- OUTSIDE RECORDS SUMMARY | ~2020-05-01 | XMS | Encounter Summary ---
Demographics + + + | Address | [address] | | | [place] [address] | + + + | Home Phone [...] Providers + +------+ + | Care Physical Security Engineer Name | Role | Phone | [...]
--- OUTSIDE RECORDS SUMMARY | ~2020-05-01 | XMS | Encounter Summary ---
Demographics + + + | Address | [address] | | | [place] [address] | + + + | Home Phone [...] Providers + +------+ + | Care Credit Risk Management Director Name | Role | Phone | + +------+ + PCP | Unavailable | + +------+ + Encounter Details +--------+ + + + + | Date | Type | Department | Care Team | Description | +--------+ + + + + | 03/19/ | Results | Registration [address] | Sophy, Faculty | | | 2007 | Only | [address] | [phone] | | | | | Rd Mailcode: RPB07 | | | | | | [place], [place] | | | | | | [address] | | | | | | [phone] | | | +--------+ + + + [...]
--- OUTSIDE RECORDS SUMMARY | ~2020-05-01 | XMS | Encounter Summary ---
Demographics + + + | Address | [address] | | | [place] [address] | + + + | Home Phone [...] Providers + +------+ + | Care Lead Sales Consultant Name | Role | Phone [...] | | | | | Roxann Ay[place], | | | | | | [place] [address] | | | +--------+ + + + [...] | | Patient: SHELBY GALDAMEZ Med Rec: [id number] Sex F Bdate: 1960 | | Date/Time Data | | Entered Into [facility] | | Anesth PostOp | | Surgery Date [id number] 10/11/03 10:54 | | [id number] 10/06/03 10:47 | | [id number] 10/04/03 10:47 | | [id number] 10/01/03 11:25 | | [id number] 09/28/03 10:01 | | [id number] 09/27/03 11:35 | | [id number] 09/14/03 11:13 | | [id number] 08/17/03 10:51 | | Anesthesiologist SEBASTIAN MARIO [...]
--- OUTSIDE RECORDS SUMMARY | ~2020-05-01 | XMS | Encounter Summary ---
Demographics + + + | Address | [address] | | | [place] [address] | + + + | Home Phone [...] + +------+ + | Care Filling Hauler Name | Role | Phone | + [...] + | 03/17/ | Office | [facility] | Ladarius Martínez PA | MAMADOU on CPAP (Primary | | 2012 | Visit | SLEEP DISORDER [address] | [address] | Dx) | | | | [address] [place] | [place], [place] | | | | | [place] [address] | [address] | | | | | [phone] | | | +--------+---------+ + + + [...] Ravi obtained from: [facility] [place] pressure is: 9 cm ResMed S9: Pressure: [...] to go to [facility] [place] to get a fitting for her mask that will allow it to connect to her hose properly. I will follow up again in 1 month, sooner prn. Fifteen minutes were spent [id number], wi th the majority of time spent [...] [place] | | | | | | [address] | | | | | | | | +--------+---------+ + + + documented as of this encounter Visit Diagnoses + + | Diagnosis | + + | MAMADOU on CPAP - Primary Obstructive sleep apnea (adult) (pediatric) | + + documented in this encounter"
--- OUTSIDE RECORDS SUMMARY | ~2020-05-01 | XMS | Encounter Summary ---
Demographics + + + | Address | [address] | | | [place] [address] | + + + | Home Phone [...] Providers + +------+ + | Care Business Communications Instructor Name | Role | Phone | + +------+ + | Travis Mcginnis MD | PCP | | + +------+ + Encounter Details +--------+ + + + + | Date | Type | Department | Care Team | Description | +--------+ + + + + | 02/20/ | Floor Framer | Orthopaedics at | Kalyan Arias MD | Hip replacement | | 2009 | | [facility] [address] | [address] | (Primary Dx) | | | | [address] | [facility] | | | | | Mailcode: [id number] | [facility] [place] | | | | | [facility] | [address] | | | | | [place], [place] | [phone] | | | | | [address] | | | | | | [phone] | | | +--------+ + + + [...]
--- OUTSIDE RECORDS SUMMARY | ~2020-05-01 | XMS | Encounter Summary ---
Demographics + + + | Address | [address] | | | [place] [address] | + + + | Home Phone [...] Providers + +------+ + | Care Senior Cobol Developer Name | Role | Phone | [...] as of this encounter Progress Notes Interface, Examination Grader In - 08/06/2006 1:09 AM PSTCLINIC DATE: [...] provided by Dr. Noland. Lloyd Garcia M.D. Screw Down, Orthopedics and Rehabilitation / [id number] / [id number] / [id number] / [id number] cc: Helio Noland M.D. [address] [place], [place] [email or web address] signed by Interface, Examination Grader In at 08/06/2006 1: 09 AM PSTdocumented in this encounter Plan of Treatment Not on filedocumented as of this encounter Visit Diagnoses Not on filedocumented in this encounter
--- OUTSIDE RECORDS SUMMARY | ~2020-05-01 | XMS | Encounter Summary ---
Demographics + + + | Address | [address] | | | [place] [address] | + + + | Home Phone [...] +------+ + | Care Sales And Marketing Assistant Name | Role | Phone | + +------+ + | Marta Jenkins CITY SOLICITOR | PCP | | + +------+ + [...] | Jamie Mailcode: [address] [place], | | | | | [place], [place] | [place] [address] | | | | | [address] | | | | | | [phone] | | | +--------+ + + + [...]
--- OUTSIDE RECORDS SUMMARY | ~2020-05-01 | XMS | Encounter Summary ---
Demographics + + + | Address | [address] | | | [place] [address] | + + + | Home Phone [...] Providers + +------+ + | Care Digital Account Executive Name | Role | Phone | + +------+ + | Marta Jenkins LEADER TIER | PCP | | + +------+ + [...] [address] | | | | | | [place], [place] | | | | | | [address] | | | | | | [phone] | | | +--------+ + + + [...]
--- OUTSIDE RECORDS SUMMARY | ~2020-05-01 | XMS | Encounter Summary ---
Demographics + + + | Address | [address] | | | [place] [address] | + + + | Home Phone [...] Team Providers + +------+ + | Care Cashier Checker Name | Role | Phone | [...] of this encounter Progress Notes Interface, Hand Hose Cutter In - 04/28/2005 6:17 PM PDTClinic [...] of her friend and my physician assistant broker and resident here in the [facility]opedic Clinic [...] as soon as possible. Lloyd Garcia M.D. Tail Puller of Orthopedics and Rehabilitation / [id number] / [id number] / [id number] / [id number] Tdocumented in this encounter Plan of Treatment Not on filedocumented as of this encounter Visit Diagnoses Not on filedocumented in this encounter
--- OUTSIDE RECORDS SUMMARY | ~2020-05-01 | XMS | Encounter Summary ---
Demographics + + + | Address | [address] | | | [place] [address] | + + + | Home Phone [...] Team Providers + +------+ + | Care Creel Operator Name | Role | Phone | [...] | Orthopedic | Diagnoses | [place], | [place] [facility] | | | | Surgery / [...] | | | | | Osteoarthros | [address] | [address] | | | | | is, | | [place], [place] | | | | | unspecified | | [address] | | | | | whether | | Phone: | | | | | generalized | | [phone] | | | | | or | | Fax: | | | | | localized, | | [phone] | | | | | pelvic | [...] | | [address] | [address] [place], | | | | | Mailcode: [id number] | [place] [address] | | | | | [facility] | | | | | | [place], [place] | | | | | | [address] | | | | | | [phone] | | | +--------+---------+ + + + [...] with glut medius limp. Uses cane parts puller. Pain is in inner groin and posteriorly. [...] + + | Performing | Address | City[facility] | Phone Number | | Organization | [...]
--- OUTSIDE RECORDS SUMMARY | ~2020-05-01 | XMS | Encounter Summary ---
Demographics + + + | Address | [address] | | | [place] [address] | + + + | Home Phone [...] Team Providers + +------+ + | Care Carpet Tile Layer Name | Role | Phone | + [...] | Diseases at [facility] | MEGAN [address] | | | | | [address] | [address] | | | | | Loop Physician's | [place], [place] | | | | | [place], 3rd floor | [address] | | | | | [place], [place] | [phone] | | | | | [address] | | | | | | [phone] | | | +--------+ + + + [...]
--- OUTSIDE RECORDS SUMMARY | ~2020-05-01 | XMS | Encounter Summary ---
Demographics + + + | Address | [address] | | | [place] [address] | + + + | Home Phone [...] Providers + +------+ + | Care Tin Pot Operator Name | Role | Phone | [...] as of this encounter Progress Notes Interface, Diversified Crops I Farmworker In - 04/28/2005 6:17 PM PDTClinic Date: [...] see us. She instead went to the [facility] emergency department, where she was seen and [...] a chance to get back home to [place]. We will call her tomorrow and reiterate how important it is that we take care of this fluid collection in her hip and try to get her better. Dori Wong. Lloyd Garcia M.D. Attending Physician /jamil P [id number] signed by Interface, Diversified Crops I Farmworker In at 04/28/2005 6:17 PM PDTdoc umented in this encounter Plan of Treatment Not on filedocumented as of this encounter Visit Diagnoses Not on filedocumented in this encounter"
--- OUTSIDE RECORDS SUMMARY | ~2020-05-01 | XMS | Encounter Summary ---
Demographics + + + | Address | [address] | | | [place] [address] | + + + | Home Phone [...] Providers + +------+ + | Care Manager Study Name | Role | Phone | + [...] | Transcriptions | + + | Interface, Apparel Designer In - 02/27/2006 3:05 AM PDT Date: | | 09/27/2003Attending Surgeon: Lloyd Garcia M.D.Detailer Furniture(s): | | Benson Boone M.D.Preoperative Diagnosis:Right hip [...] Boone M.D.Lloyd Garcia M.D.RT / | | [id number] / [id number] / [id number] / [id number]: 09/27/2003T: 09/28/2003 | |( ) which was [...] | | | |RT / HS | |[id number] / [id number] / [id number] / [id number] | | | | | + + OPERATION RECORD (09/25/2003) + + | Transcriptions | + + | Interface, Apparel Designer In - 02/27/2006 3:05 AM PDT Date: | | 09/25/2003Attending Surgeon: Lloyd Garcia M.D.Detailer Furniture(s): | | MD [place], | | [...] [facility] | | [...] thenbrought back to Operating Room #[facility] at [facility] | | [place].General endotracheal anesthesia was administered. Antibiotics werewithheld | [...] | procedure well without apparent complications.Lloyd Garcia M.D.Long Haul Truck Driver, | | Orthopedics and Rehabilitation / [id number] / [id number] / [id number] / [id number]: 09/25/2003T: | | 09/26/2003 | |plate and [...] |brought back to Operating Room #7 at [facility]. | |General endotracheal anesthesia was administered. [...] | | | |Lloyd Garcia M.D. | |Long Haul Truck Driver, Orthopedics and Rehabilitation | | | | / | |[id number] / [id number] / [id number] / [id number] | | | | | + + documented in this encounter Visit Diagnoses Not on filedocumented in this encounter"
--- OUTSIDE RECORDS SUMMARY | ~2020-05-01 | XMS | Encounter Summary ---
Demographics + + + | Address | [address] | | | [place] [address] | + + + | Home Phone [...] Providers + +------+ + | Care Retail Center Receptionist Name | Role | Phone | [...] Pavilion | | | | | | [place], [place] | | | | | | [address] | | | | | | [phone] | | | +--------+ + + + [...]
--- OUTSIDE RECORDS SUMMARY | ~2020-05-01 | XMS | Encounter Summary ---
Demographics + + + | Address | [address] | | | [place] [address] | + + + | Home Phone [...] + +------+ + | Care Body Shop Manager Name | Role | Phone | [...]
--- OUTSIDE RECORDS SUMMARY | ~2020-05-01 | XMS | Encounter Summary ---
Demographics + + + | Address | [address] | | | [place] [address] | + + + | Home Phone [...] Team Providers + +------+ + | Care Airflight Attendants Supervisor Name | Role | Phone | [...] | Diseases at [facility] | MEGAN [address] | | | | | [address] | [address] | | | | | Loop Physician's | [place], [place] | | | | | [place], 3rd floor | [address] | | | | | [place], [place] | [phone] | | | | | [address] | | | | | | [phone] | | | +--------+ + + + [...] | SEDIMENTATI | 48 | mm/hr | [facility] | | | [...] + + + | [facility] | [address] | [place] [address] | | | [facility] [place] | | | | + + + + + documented in this encounter Visit Diagnoses Not on filedocumented in this encounter"
--- OUTSIDE RECORDS SUMMARY | ~2020-05-01 | XMS | Encounter Summary ---
Demographics + + + | Address | [address] | | | [place] [address] | + + + | Home Phone [...] Providers + +------+ + | Care Community Services Coordinator Name | Role | Phone | [...] | Diseases at [facility] | MEGAN [address] | | | | | [address] | [address] | | | | | Loop Physician's | [place], [place] | | | | | [place], 3rd floor | [address] | | | | | [place], [place] | [phone] | | | | | [address] | | | | | | [phone] | | | +--------+ + + + [...] CELL | 8.6 | K/cu mm | [facility] | | | COUNT | | | MEDICAL | | | | | | [facility] - | | | | | | [place] | | + + + + + + | RED CELL | 3.88 | M/cu mm | [facility] | | | COUNT | | | MEDICAL | | | | | | [facility] - | | | | | | [place] | | + + + + + + | HEMOGLOBIN | 11.5 (A) | 12.1999 - 15 | [facility] | | | | | g/dL | MEDICAL | | | | | | CENTER - | | | | | | [place] | | + + + + + + | HEMATOCRIT | 33.7 | % | [facility] | | | | | | MEDICAL | | | | | | [facility] - | | | | | | [place] | | + + + + + + | MCV | 87 | fL | [facility] | | | | | | MEDICAL | | | | | | [facility] - | | | | | | [place] | | + + + + + + | MCH | 29.7 | pg | [facility] | | | | | | MEDICAL | | | | | | [facility] - | | | | | | [place] | | + + + + + + | MCHC | 34.1 | g/dL | [facility] | | | | | | MEDICAL | | | | | | [facility] - | | | | | | [place] | | + + + + + + | PLATELET | 369 | K/cu mm | [facility] | | | COUNT | | | MEDICAL | | | | | | [facility] - | | | | | | [place] | | + + + + + + | NEUTROPHIL | 66.6 | % | [facility] | | | % | | | MEDICAL | | | | | | [facility] - | | | | | | [place] | | + + + + + + | LYMPHOCYTE | 23.2 | % | [facility] | | | % | | | MEDICAL | | | | | | [facility] - | | | | | | [place] | | + + + + + + | MONOCYTE % | 6.6 | % | [facility] | | | | | | MEDICAL | | | | | | [facility] - | | | | | | [place] | | + + + + + + | EOS % | 3.1 | % | [facility] | | | | | | MEDICAL | | | | | | [facility] - | | | | | | [place] | | + + + + + + | BASO % | 0.5 | % | [facility] | | | | | | MEDICAL | | | | | | [facility] - | | | | | | [place] | | + + + + + + | RDW | 16.7 | % | [facility] | | | [...] NEUTROPHIL | 5.7 | K/cu mm | [facility] | | | # | | | MEDICAL | | | | | | [facility] - | | | | | | [place] | | + + + + + + | LYMPHOCYTE | 2.0 | K/cu mm | [facility] | | | # | | | [facility]ICAL | | | | | | [facility] - | | | | | | [place] | | + + + + + + | MONOCYTE # | 0.6 | K/cu mm | [facility] | | | | | | MEDICAL | | | | | | [facility] - | | | | | | [place] | | + + + + + + | EOS # | 0.3 | K/cu mm | [facility] | | | | | | [facility]ICAL | | | | | | [facility] - | | | | | | [place] | | + + + + + + | BASO # | | | [facility] | | | | | | [facility] | | | | | | [facility] - | | | | | | [place] | | + + + + + + | SEDIMENTATI | 78 | mm/hr | [facility] | | | [...] + + + | [facility] | [address] | [place] [address] | | | [facility] | | | | + + + + + COMPLETE METABOLIC SET (NA,K,CL,CO2,BUN,CREAT,GLUC,CA,AST,ALT,BILI TOTAL,ALK PHOS,ALB,PROT TOTAL) (11/16/2010 9:41 AM PST) + +---------+ + + + | Component | Value | Ref Range | Performed | Pathologist | | | | | At | Signature | + +---------+ + + + | GLUCOSE, | 112 (A) | 65 - 110 mg/dL | [facility] | | | PLASMA | | | MEDICAL | | | (LAB) | | | CENTER - | | | | | | [place] | | + +---------+ + + + | BUN, PLASMA | 6 | mg/dL | [facility] | | | (LAB) | | | MEDICAL | | | | | | [facility]ENTER - | | | | | | [place] | | + +---------+ + + + | CREATININE | 0.4 | mg/dL | [facility] | | | PLASMA | | | MEDICAL | | | (LAB) | | | CENTER - | | | | | | [place] | | + +---------+ + + + | TOTAL | 7.1 | g/dL | [facility] | | | PROTEIN, | | | MEDICAL | | | PLASMA | | | CENTER - | | | (LAB) | | | [place] | | + +---------+ + + + | ALBUMIN, | 3.3 | g/dL | [facility] | | | PLASMA | | | MEDICAL | | | (LAB) | | | CENTER - | | | | | | [place] | | + +---------+ + + + | CALCIUM, | 8.6 | mg/dL | [facility] | | | PLASMA | | | MEDICAL | | | (LAB) | | | CENTER - | | | | | | [place] | | + +---------+ + + + | BILIRUBIN | 0.9 | Transcutaneous | [facility] | | | TOTAL | | Bilirubinometer | MEDICAL | | | | | | CENTER - | | | | | | [place] | | + +---------+ + + + | ALK PHOS | 60 | U/L | [facility] | | | | | | MEDICAL | | | | | | [facility] - | | | | | | [place] | | + +---------+ + + + | AST(SGOT) | 15 | U/L | [facility] | | | | | | MEDICAL | | | | | | [facility]ENTER - | | | | | | [place] | | + +---------+ + + + | SODIUM, | 139 | mmol/L | [facility] | | | PLASMA | | | MEDICAL | | | (LAB) | | | CENTER - | | | | | | [place] | | + +---------+ + + + | POTASSIUM, | 4.1 | mmol/L | [facility] | | | [...] TOTAL CO2, | 26 | mmol/L | [facility] | | | PLASMA | | | MEDICAL | | | (LAB) | | | CENTER - | | | | | | [place] | | + +---------+ + + + | ALT (SGPT) | 11 | U/L | [facility] | | | | | | MEDICAL | | | | | | [facility]ENTER - | | | | | | [place] | | + +---------+ + + + | ANION GAP | 10 | | [facility] | | | | | | MEDICAL | | | | | | [facility]ENTER - | | | | | | [place] | | + +---------+ + + + | OSMOLALITY, | 286 | | [facility] | | | CALCULATED | | | [...] + + + | [facility] | [address] | [place] [address] | | | [facility] | | | | + + + + + documented in this encounter Visit Diagnoses Not on filedocumented in this encounter"
--- OUTSIDE RECORDS SUMMARY | ~2020-05-01 | XMS | Encounter Summary ---
Demographics + + + | Address | [address] | | | [...] Team Providers + +------+ + | Care Altitude Chamber Technician Name | Role | Phone | [...]
--- OUTSIDE RECORDS SUMMARY | ~2020-05-01 | XMS | Encounter Summary ---
Demographics + + + | Address | [address] | | | [place] [address] | + + + | Home Phone [...] Team Providers + +------+ + | Care Multiple Wire Sawyer Name | Role | Phone | [...] | | | unspecified | | Rd [place], | | | | | whether | | [place] | | | | | generalized | | [address] | | | | | or | | Phone: | | | | | localized, | | [phone] | | | | | pelvic | | Fax: | | | | | region and | | [phone] | | | | | thigh | [...] | | | | Mailcode: [id number] | [place], [place] | | | | | [facility] | [address] | | | | | [place], [place] | [phone] | | | | | [address] | | | | | | [phone] | | | +--------+---------+ + + + [...]
--- OUTSIDE RECORDS SUMMARY | ~2020-05-01 | XMS | Encounter Summary ---
Demographics + + + | Address | [address] | | | [place] [address] | + + + | Home Phone [...] Team Providers + +------+ + | Care Enforcement Officer Name | Role | Phone | + +------+ + | Marta Jenkins FINAL INSPECTOR TRUCK TRAILER | PCP | | + +------+ + [...] | Jamie Mailcode: [address] [place], | | | | | [place], [place] | [place] [address] | | | | | [address] | | | | | | [phone] | | | +--------+ + + + [...]
--- OUTSIDE RECORDS SUMMARY | ~2020-05-01 | XMS | Encounter Summary ---
Demographics + + + | Address | [address] | | | [place] [address] | + + + | Home Phone [...] Providers + +------+ + | Care Research Programmer Name | Role | Phone | [...] Pavilion | | | | | | [place], [place] | | | | | | [address] | | | | | | [phone] | | | +--------+ + + + [...] + | INJ HIP | Radiologist 1: YAMILKA, | | | | | ARTHANDRÉS WO | Malcom HENRIQUEZ-Radiologist | | | | | ANESTHESIA | 2: MARTINEZ ALARCON, | | | | | | MalcomRIGHT HIP ARTHROGRAM | | | | | | AND THERAPEUTIC | | | | | | INJECTION: 01/26/2003 | | | | | | Dictated: | | | | | | 01/26/2003 COMPARISON: | | | | | | 10/05/2002. CLINICAL | | | | | | HISTORY: Osteoarthritis | | | | | | of the right hip. | | | | | | Request forinjection | | | | | | of steroid and Marcaine. | | | | | [...] | | | | | | obtained. Vocational Counselor AP and | | | | | | lateral images ofthe | | | | [...] | | | | into the hip joint. | | | | | | Theneedle was removed | | | | | | and manual pressure was | | | | | | applied. The | | | | | | patienttolerated the | | | | | | procedure well with no | | | | | | immediate complications. | | | | | | The procedure was | | | | | | performed by Drs. Eli | | | | | | and Yamilka. FINDINGS: | | | | | | Vocational Counselor images of the | | | | | | right hip demonstrate | | | | | | [...] | | | | | iliopsoas bursa. | | | | | | Following | | | | | | repostioning, contrast | | | | | | wasidentified within the | | | | | | right hip joint | | | | | | capsule. Before the | | | | | | procedure,the patient | | | | | | rated her pain as 03/09 | | | | | | and post-procedure her | | | | | | paindecreased to 0-10/09. | | | | | | IMPRESSION: 1. | | | | | | Moderate to advanced | | | | | | degenerative joint | | | | | | disease of the right | | | | | | hip. 2. Successful | | | | | | right hip injection with | | | | | | 4 cc of bupivacaine | | | | | | 0.25% and40 mg of | | | | | | Depo-Medrol with | | | | | | subjective improvement | | | | | | in pain from 03/09 toto | | | | | | 0-10/09. END OF | | | | | | IMPRESSION: | | | | + + + + + + + + | Specimen | + + | | + + + +---------+ + + | Performing | Address | City/State/Zipcode | Phone Number | | Organization | | | | + +---------+ + + | [facility] DEPARTMENT OF | | | | | RADIOLOGY | | | | + +---------+ + + ARTHROGRAM HIP RT (01/26/2003 10:58 AM PDT) + + + + + + | Component | Value | Ref Range | Performed | Pathologist | | | | | At | Signature | + + + + + + | ARTHROGRAM | Radiologist 1: YAMILKA | | | | | HIP RT | Malcom HENRIQUEZ-Radiologist | | | | | | 2: MARTINEZ ALARCON, | | | | | | MalcomRIGHT HIP ARTHROGRAM | | | | | | AND THERAPEUTIC | | | | | | INJECTION: 01/26/2003 | | | | | | Dictated: | | | | | | 01/26/2003 COMPARISON: | | | | | | 10/05/2002. CLINICAL | | | | | | HISTORY: Osteoarthritis | | | | | | of the right hip. | | | | | | Request forinjection | | | | | | of steroid and Marcaine. | | | | | [...] | | | | | | obtained. Vocational Counselor AP and | | | | | | lateral images ofthe | | | | [...] | | | | into the hip joint. | | | | | | Theneedle was removed | | | | | | and manual pressure was | | | | | | applied. The | | | | | | patienttolerated the | | | | | | procedure well with no | | | | | | immediate complications. | | | | | | The procedure was | | | | | | performed by Drs. Eli | | | | | | and Yamilka. FINDINGS: | | | | | | Vocational Counselor images of the | | | | | | right hip demonstrate | | | | | | [...] | | | | | iliopsoas bursa. | | | | | | [...] | | | | | paindecreased to 0-10/09. | | | | | | IMPRESSION: 1. | | | | | | Moderate to advanced | | | | | | degenerative joint | | | | | | disease of the right | | | | | | hip. 2. Successful | | | | | | right hip injection with | | | | | | 4 cc of bupivacaine | | | | | | 0.25% and40 mg of | | | | | | Depo-Medrol with | | | | | | subjective improvement | | | | | | in pain from 6/10 toto | | | | | | 0-10/09. END OF | | | | | | IMPRESSION: | | | | + + + + + + + + | Specimen | + + | | + + + +---------+ + + | Performing | Address | City/State/Zipcode | Phone Number | | Organization | | | | + +---------+ + + | [facility] DEPARTMENT OF | | | | | RADIOLOGY | | | | + +---------+ + + documented in this encounter Visit Diagnoses Not on filedocumented in this encounter"
--- OUTSIDE RECORDS SUMMARY | ~2020-05-01 | XMS | Encounter Summary ---
Demographics + + + | Address | [address] | | | [place] [address] | + + + | Home Phone [...] Providers + +------+ + | Care Payroll Clerk Name | Role | Phone | [...] | | | | | | [place], [place] | | | | | | [address] | | | | | | [phone] | | | +--------+ + + + [...] | | | | | FINDINGS: The activities director scouting | | | | | | radiographs [...] | | + +---------+ + + | [facility] DEPARTMENT OF | | | [...] | | | | | FINDINGS: The activities director scouting | | | | | | radiographs [...] | | + +---------+ + + | [facility] DEPARTMENT OF | | | | | RADIOLOGY | | | | + +---------+ + + documented in this encounter Visit Diagnoses Not on filedocumented in this encounter"
--- OUTSIDE RECORDS SUMMARY | ~2020-05-01 | XMS | Encounter Summary ---
Demographics + + + | Address | [address] | | | [place] [address] | + + + | Home Phone [...] Providers + +------+ + | Care Manager Dialysis Name | Role | Phone | + [...] Procedures | Pankaj Bergman | Roxann Ayala [facility] | | | | | CT INJ | Roxann Ayala [facility], | | | | | SACROILIAC | [place], [place] | 10th Floor | | | | | JOINT | [address] | [place], [place] | | | | | W/NEEDLE | Phone: | [phone] | | | | | PLCMT | [phone] | Phone: | | | | | | Fax: | [phone] | | | | | | [phone] | Fax: | | | | | | | [phone] | +--------+--------+ + + + + Encounter Details +--------+ + + + + | Date | Type | Department | Care Team | Description | +--------+ + + + + | 10/12/ | Hospital | Diagnostic Imaging | | | | 2009 | Encounter | Services at [facility] | | | | | | [address] | | | | | | Roxann Ayala [facility] | | | | | | [address] | | | | | | [place], [place] | | | | | | [address] | | | | | | [phone] | | | +--------+ + + + [...] | | | | | | the software support engineer. | | | | | | Assistant Professor Of Anthropology imaging was | | | | | [...]
--- OUTSIDE RECORDS SUMMARY | ~2020-05-01 | XMS | Encounter Summary ---
Demographics + + + | Address | [address] | | | [place] [address] | + + + | Home Phone [...] Providers + +------+ + | Care Hazardous Materials Handler Name | Role | Phone | + [...] | [facility] at [facility] | MEGAN Reddy [address] | | | | | [address] | [address] | | | | | Loop Physician's | [place], [place] | | | | | [place], 3rd floor | [address] | | | | | [place], [place] | [phone] | | | | | [address] | | | | | | [phone] | | | +--------+ + + + [...] [address] | [place] | [phone] | | [facility] | | [address] | | + + + + + | [place] | [address] | [place] | | | [facility] | | [address] | | + + + + + [...] [address] | [place] | [phone] | | [facility] | | [address] | | + + + + + | FREDDY HAYES | [address] | [place] | | | [facility] | | [address] | | + + + + + documented in this encounter Visit Diagnoses Not on filedocumented in this encounter"
--- OUTSIDE RECORDS SUMMARY | ~2020-05-01 | XMS | Encounter Summary ---
Demographics + + + | Address | [address] | | | [place] [address] | + + + | Home Phone [...] Providers + +------+ + | Care Ordnance Keeper Name | Role | Phone | [...] of this encounter Progress Notes Interface, Assistant Property Manager In - 06/19/2006 1:01 AM PDT [place] [facility] and [place] [address] [address], [place] [address] FAX Department of Orthopaedics, [facility] [id number] October 15, 2001 Lloyd Garcia M.D. Department of Orthopedics and Rehabilitation/[facility] [id number] RE: SHELBY GALDAMEZ MR #: [id number] DOS: 10/15/[address] Desai: Thank you [...] Sincerely, Kalyan Wu M.D. TE / HS [id number] / [id number] / [id number] / [id number] cc: Chan Krishna M.D. Department of Orthopedics and Rehabilitation/[facility] OP-31 Helio Noland M.D. [address] [place], [place] [id number] signed by Interface, Assistant Property Manager In at 06/19/2006 1: 01 AM PDTdocumented in this encounter Plan of Treatment Not on filedocumented as of this encounter Visit Diagnoses Not on filedocumented in this encounter"
--- OUTSIDE RECORDS SUMMARY | ~2020-05-01 | XMS | Encounter Summary ---
Demographics + + + | Address | [address] | | | [place] [address] | + + + | Home Phone [...] Team Providers + +------+ + | Care Paraprofessional Aide Teacher Name | Role | Phone | [...] | | | | | | [place], [facility] Floor | | | | | | [place], [place] | | | | | | [address] | | | | | | [phone] | | | +--------+ + + + [...] X-RAY HIP 2 | Med Rec No: [id number] | | | | | VIEWS | Name: | | | | | RIGHT W/ | SHELBY GALDAMEZ C | | | | | PELVIS 1 | Birthday: 1960 | | | | | VIEW | Sex: F | | | | | | Alias:Patient Location: | | | | | | [id number]: Outpatient | | | | | | [...] # | | | | | | [id number]:PELVIS | | | | | | ONE [...]
--- OUTSIDE RECORDS SUMMARY | ~2020-05-01 | XMS | Encounter Summary ---
Demographics + + + | Address | [address] | | | [place] [address] | + + + | Home Phone [...] Team Providers + +------+ + | Care Postal Clerk Name | Role | Phone | [...] of this encounter Progress Notes Interface, Senior Java Ui Developer In - 06/19/2006 1:01 AM PDT [place] [facility] and [place] [address] [address], [place] [address] FAX Department of Orthopaedics, [facility] [id number] September 16, 2001 Kalyan Wu M.D. Department of Orthopedics and Rehabilitation [facility] RE: SHELBY GALDAMEZ MR #: [id number] DOS: 09/16/2001 Dear Nasir: I am referring [...] contact me directly. Sincerely, Lloyd Garcia M.D. Java Grails Developer Orthopedics and Rehabilitation / [id number] / [id number] / [id number] / [id number] C: 10/02/2001 [facility] cc: Helio Mann M.D. P.OJuan Jose [address] [id number] signed by Interface, Senior Java Ui Developer In at 06/19/2006 1: 01 AM PDTdocumented in this encounter Plan of Treatment Not on filedocumented as of this encounter Visit Diagnoses Not on filedocumented in this encounter"
--- OUTSIDE RECORDS SUMMARY | ~2020-05-01 | XMS | Encounter Summary ---
Demographics + + + | Address | [address] | | | [place] [address] | + + + | Home Phone [...] | + + + + + | Csaandra Smith | ROBERTO | [place] | | + + + + + Care Team Providers + +------+ + | Care Corrugator Name | Role | Phone | + [...] | | | | | or | [address] | Pavilion | | | | | localized, | | [place], [place] | | | | | pelvic | | [address] | | | | | region and | | Phone: | | | | | thigh | | [phone] | | | | | Intervertebr | | Fax: | | | | | al lumbar | | [phone] | | | | | disc | [...] Pavilion | | | | | | [place], [place] | | | | | | [address] | | | | | | [phone] | | | +--------+---------+ + + + [...] tenderness. Severe gluteus medius limp. Most recent [facility] Laboratory Studies: Normal C-reactive protein at 0.5 (02/10/04), normal [facility] te cell count at 9.4 & erythrocyte [...] this done around the time of the [place] [employer] so she can enjoy shopp ing. [...] hip arthroplasty if needed. Lloyd Garcia M.D. Electromechanical Equipment Tester, Orthopedics and Rehabilitation documented in this encount [...]
--- OUTSIDE RECORDS SUMMARY | ~2020-05-01 | XMS | Encounter Summary ---
Demographics + + + | Address | [address] | | | [place] [address] | + + + | Home Phone [...] Team Providers + +------+ + | Care Jig Boring Machine Operator For Metal Name | Role | Phone | + [...] + + | 08/11/ | Telephone | [facility] | Augie Valdivia MD | Appointment | | 2011 | | GASTROENTEROLOGY | [address], [place] | (schedule procedure) | | | | [address] [place] | [address] [place] | | | | | [address] [place] | [address] | | | | | [address] | | | | | | [phone] | | | +--------+ + + + [...] back if she wants to schedule. [facility] Encounter - Lupe Sinha - 08/11/2012 9:26 AM PSTPatient is calling to schedule another procedure after two failed attempts. Patient's information is up to date in [place].E lectronically signed by Lupe Sinha at 08/11/2012 [...] [place] | | | | | | [address] | | | | | | | | +--------+---------+ + + + documented as of this encounter Visit Diagnoses Not on filedocumented in this encounter"
--- OUTSIDE RECORDS SUMMARY | ~2020-05-01 | XMS | Encounter Summary ---
Demographics + + + | Address | [address] | | | [place] [address] | + + + | Home Phone [...] Providers + +------+ + | Care Adhesive Bandage Making Operator Name | Role | Phone | [...] | 10/06/ | Telephone | [facility] | Augie Valdivia MD | Appointment | | 2012 | | GASTROENTEROLOGY | [address], [place] | | | | | [address] [place] | [address] [place], [place] | | | | | [address] [place], [place] | [address] | | | | | [address] | | | | | | [phone] | | | +--------+ + + + [...] [place] | | | | | | [address] | | | | | | | | +--------+---------+ + + + documented as of this encounter Visit Diagnoses Not on filedocumented in this encounter"
--- OUTSIDE RECORDS SUMMARY | ~2020-05-01 | XMS | Encounter Summary ---
Demographics + + + | Address | [address] | | | [place] [address] | + + + | Home Phone [...] Team Providers + +------+ + | Care Alarm Installation Technician Name | Role | Phone | [...] as of this encounter Progress Notes Interface, Migratory Game Bird Biologist In - 07/14/2006 1:10 AM PDTCLINIC DATE: [...] improve her hip pain. Lloyd Garcia M.D. Buckle Inspector, Orthopedics and Rehabilitation / [id number] / [id number] / [id number] / [id number] cc: Helio Xie M.D. [place], [place] [address]Lfazhjjibjzian signed by Interface, Migratory Game Bird Biologist In at 07/14/2006 1:1 0 AM PDTdocumented in this encounter Plan of Treatment Not on filedocumented as of this encounter Visit Diagnoses Not on filedocumented in this encounter"
--- OUTSIDE RECORDS SUMMARY | ~2020-05-01 | XMS | Encounter Summary ---
Demographics + + + | Address | [address] | | | [place] [address] | + + + | Home Phone [...] Providers + +------+ + | Care Financial Professional Name | Role | Phone | [...] Rd | | | | | | [place], [place] | | | | | | [address] | | | +--------+ + + + [...]
--- OUTSIDE RECORDS SUMMARY | ~2020-05-01 | XMS | Encounter Summary ---
Demographics + + + | Address | [address] | | | [place] [address] | + + + | Home Phone [...] Providers + +------+ + | Care Crystal Inspector Name | Role | Phone | [...] | | | | | | [place], [place] | | | | | | [address] | | | | | | [phone] | | | +--------+ + + + [...] | | | | | | obtained. Dye Padder Operator AP and | | | | | [...] FINDINGS: | | | | | | Dye Padder Operator images of the | | | | [...] | + +---------+ + + | [facility] DEPARTMENT OF | | | | [...] | | | | | | obtained. Dye Padder Operator AP and | | | | | [...] FINDINGS: | | | | | | Dye Padder Operator images of the | | | | [...] | + +---------+ + + | [facility] DEPARTMENT OF | | | | | RADIOLOGY | | | | + +---------+ + + documented in this encounter Visit Diagnoses Not on filedocumented in this encounter"
--- OUTSIDE RECORDS SUMMARY | ~2020-05-01 | XMS | Encounter Summary ---
Demographics + + + | Address | [address] | | | [place] [address] | + + + | Home Phone [...] Team Providers + +------+ + | Care Relief Map Modeler Name | Role | Phone | + [...] | | | unspecified | | Rd [place], | | | | | whether | | [place] | | | | | generalized | | [address] | | | | | or | | Phone: | | | | | localized, | | [phone] | | | | | pelvic | | Fax: | | | | | region and | | [phone] | | | | | thigh Pain [...] | | | | Mailcode: [id number] | [place], [place] | inflammatory | | | | [facility] | [address] | reaction due to | | | | [place], [place] | [phone] | internal joint | | | | [address] | | prosthesis ([facility]); | | | | [phone] | | EE-NO SHOW | +--------+---------+ + [...]
--- OUTSIDE RECORDS SUMMARY | ~2020-05-01 | XMS | Encounter Summary ---
Demographics + + + | Address | [address] | | | [place] [address] | + + + | Home Phone [...] Providers + +------+ + | Care Wire Charger Name | Role | Phone | + [...] as of this encounter Discharge Summaries Interface, Acid Maker In 02/27/2006 3:05 AM PDTAdmission Date: 09/13/2003 [...] readmitted. DISPOSITION: She was discharged to a group home facility. MEDICATIONS: 1. Docusate #80. 2. Oxycodone #80. 3. Indomethacin 25 mg, p.o. t.i.d. for six weeks. FOLLOWUP: She will see Dr. Garcia in two weeks. She is to continue wearing her abduction brace. If she has any changes in her wound she is to notify our clinic as soon as possible. Benson Boone M.D. Lloyd Garcia M.D. RT:[id number] signed by Interface, Acid Maker In at 02/27/2006 3:05 AM [facility] umented in this encounter Plan of Treatment Not on filedocumented as of this encounter Visit Diagnoses Not on filedocumented in this encounter"
--- OUTSIDE RECORDS SUMMARY | ~2020-05-01 | XMS | Encounter Summary ---
Demographics + + + | Address | [address] | | | [place] [address] | + + + | Home Phone | | + + + | Preferred Language | Unknown | + + + | Marital Status | | + + + | Anglican Affiliation | 1076 | + + + [...] Team Providers + +------+ + | Care Straight Knife Machine Cutter Name | Role | Phone | [...] | | [address] | Y, Offline Cutter | Morbid obesity with | | | | [place], [place] | | BMI of 50.0-59.9, | | | | [address] | | adult (HCC) | | | | [phone] | | | +--------+ + + + [...] [place] | | | | | | [address] | | | | | | | [...] | | | Absolute | performed at [facility];[address] | [address] | LAB | | | | [place] | | [facility] | | | | [address];[place] [address] | | LABORATORY | | + + + + + + + + | Specimen | + + | Blood | + + + + + + + | Performing | Address | City/State/Zipcode | Phone Number | | Organization | | | | + + + + + | REFERENCE LAB | [address] [facility] | [place] | [phone] | | [facility] | [address] | [address] | | | LABORATORY | | | | + + + + + | REFERENCE LAB | [address] [facility] | [place] | | | [facility] | Bl[address] | [address] | | | LABORATORY | | | [...] [place] | | | | | | [address] | | | | + + + + + + + + | Specimen | + + | Blood | + + + + + + + | Performing | Address | City/State/Zipcode | Phone Number | | Organization | | | | + + + + + | REFERENCE LAB | [address] [place] [address] [address] | [place] | [phone] | | [facility] | Bl[address] | [address] | | | LABORATORY | | | | + + + + + | REFERENCE LAB | [address] | [place] | | | [facility] | Bl[address] | [address] | | | LABORATORY | | | | + + + + + [place] (07/29/2019 10:58 AM PDT) + + + + + + | Component | Value | Ref Range | Performed | Pathologist | | | | | At | Signature | + + + + + + | [place], | None DetectedComment: | 0.0 - 0.9 ug/L | REFERENCE | | | Ser/Plas | This test was developed | | LAB | | | | and its performance | | [facility] | | | | characteristicsdetermine | | LABORATORY | | | | d by [facility]. It has not | | | [...] | | | | | performed at [facility], [address] | | | | | | [address] | | | | | | [place] [address] | | | | + + + + + + + + | Specimen | + + | Blood | + + + + + + + | Performing | Address | City/State/Zipcode | Phone Number | | Organization | | | | + + + + + | REFERENCE LAB | [address] [place] [address] | [place], [place] | [phone] | | [facility] | [address] | [address] | | | LABORATORY | | | | + + + + + | REFERENCE LAB | [address] [place] [address] | [place] | | | [facility] | [address] | [address] | | | LABORATORY | | | [...] | | [facility] | | | | Blvd;[place] [address] | | LABORATORY | | + + + + + + + + | Specimen | + + | Blood | + + + + + + + | Performing | Address | City/State/Zipcode | Phone Number | | Organization | | | | + + + + + | REFERENCE LAB | [address] [place] [address] | [place], [place] | [phone] | | [facility] | Bl[address] | [address] | | | LABORATORY | | | | + + + + + | REFERENCE LAB | [address] [place] [address] | [place], [place] | | | [facility] | [address] | [address] | | | LABORATORY | | | [...] REFERENCE | | | | performed at [facility];[address] | | LAB | | | | [place] | | [facility] | | | | [address];[place] [address] | | LABORATORY | | + + + + + + + + | Specimen | + + | Blood | + + + + + + + | Performing | Address | City/State/Zipcode | Phone Number | | Organization | | | | + + + + + | REFERENCE LAB | [address] [place] [address] | [place], [place] | [phone] | | [facility] | Bl[address] | [address] | | | LABORATORY | | | | + + + + + | REFERENCE LAB | [address] [place] [address] | [place], [place] | | | [facility] | Bl[address] | [address] | | | LABORATORY | | | [...] REFERENCE | | | | performed at [facility];[address] | | LAB | | | | [place] | | [facility] | | | | [address];[place] [address] | | LABORATORY | | + + + + + + + + | Specimen | + + | Blood | + + + + + + + | Performing | Address | City/State/Zipcode | Phone Number | | Organization | | | | + + + + + | REFERENCE LAB | [address] | [place] | [phone] | | [facility] | [address] | [address] | | | LABORATORY | | | | + + + + + | REFERENCE LAB | [address] | [place] | | | [facility] | Bl[address] | [address] | | | LABORATORY | | | | + + + + + documented in this encounter Visit Diagnoses + + | Diagnosis | + + | Left hip pain Pain in joint, pelvic region and thigh | + + | Morbid obesity with BMI of 50.0-59.9, adult (HCC) | + + documented in this encounter"
--- OUTSIDE RECORDS SUMMARY | ~2020-05-01 | XMS | Encounter Summary ---
Demographics + + + | Address | [address] | | | [place] [address] | + + + | Home Phone [...] Team Providers + +------+ + | Care Tape Recorder Repairer Name | Role | Phone | [...] Pavilion | | | | | | [place], [place] | | | | | | [address] | | | | | | [phone] | | | +--------+ + + + [...] | + +--------+ + + + | HIV AB/AG SCREENING | Routin | 10/09/2003 | | Results for this | | W/REFLEX TO CONFIRM | e | 4:45 AM | | [...] | AB, IGM | Test performed by [facility] | | | | | | [facility] | | | | | | [employer]. | | | | + + + + + + + + | Specimen | + + | | + + + + + + + | Performing | Address | City/State/Zipcode | Phone Number | | Organization | | | | + + + + + | [facility] | [address] | [place] [address] | | | LABORATORY | | | [...] by | | | | | | [facility] | | | | | | [facility]. | | | | + + + + + + + + | Specimen | + + | | + + + + + + + | Performing | Address | City/State/Zipcode | Phone Number | | Organization | | | | + + + + + | [facility] | [address] | [place] [address] | | | LABORATORY | | | [...] | | AB | Test performed by [facility] | | | | | | [facility] | | | | | | Laboratories. | | | | + + + + + + + + | Specimen | + + | | + + + + + + + | Performing | Address | City/State/Zipcode | Phone Number | | Organization | | | | + + + + + | [facility] | [address] | [place] [address] | | | LABORATORY | | | [...] | AB TOTAL | Test performed by [facility] | | | | | | [facility] | | | | | | [...] | + + + + + | [facility] | [address] | [place] [address] | | | LABORATORY | | | [...] [facility] | [address] | [place] [address] | | | PATHOLOGY | [address] | | | + + + + + | [facility] | [address] | [place] [address] | | | PATHOLOGY | [address] [...] [facility] DE[facility] | [address] | [place] [address] | | | PATHOLOGY | [address] | | | + + + + + | [facility] DEPARTMENT OF | [address] | [place] [address] | | | PATHOLOGY | [address] [...] + + | [facility] | [facility] | [place] [address] | | | PATHOLOGY | [address] | | | + + + + + | [facility] | [facility] [address] | [place] [address] | | | PATHOLOGY | [address] [...] [facility] DE[facility] | [address] [facility] | [place] [address] | | | PATHOLOGY | [address] | | | + + + + + | [facility] DEPARTMENT OF | [address] [facility] | [place] [address] | | | PATHOLOGY | [address] [...] [facility] | [address] | [place] [address] | | | PATHOLOGY | [address] | | | + + + + + | [facility] | [address] | [place] [address] | | | PATHOLOGY | [address] [...] DEPARTMENT OF | [address] | [place] [address] | | | PATHOLOGY | [address] | | | + + + + + | [facility] | [address] | [place] [address] | | | PATHOLOGY | [address] [...] | + + + + + | [facility] | [address] | [place] [address] | | | LABORATORY | | | [...] DEPARTMENT OF | [address] | [place] [address] | | | PATHOLOGY | [address] | | | + + + + + | [facility] DEPARTMENT OF | [address] | [place] [address] | | | PATHOLOGY | [address] [...] DEPARTMENT OF | [address] | [place] [address] | | | PATHOLOGY | [address] | | | + + + + + | [facility] DEPARTMENT OF | [address] | [place] [address] | | | PATHOLOGY | [address] [...] + + + + | PRODUCT | [id number] | | [facility] | | | UNIT [...] [facility] DEPARTMENT | [address] [facility] | [place] [address] | | | PATHOLOGY | [address] | | | + + + + + | [facility] | [address] [place] [address] | [place] [address] | | | PATHOLOGY | [address] [...] + + + + | PRODUCT | [id number] | | [facility] | | | UNIT [...] | STATUS OF | Transfused | | [facility] | | | UNIT | | | [...] [facility] DE[facility] | [address] [facility] | [place] [address] | | | PATHOLOGY | [address] | | | + + + + + | [facility] DEPARTMENT OF | [address] [facility] | [place] [address] | | | PATHOLOGY | [address] [...] At | + + + | [facility] 10/04/03 @ 0700 | [facility] | | | DEPARTMENT OF | | | PATHOLOGY | + + + + + + + + | Performing | Address | City/State/Zipcode | Phone Number | | Organization | | | | + + + + + | [facility] DEPARTMENT OF | [address] | [place] [address] | | | PATHOLOGY | [address] | | | + + + + + | [facility] | [address] | [place] [address] | | | PATHOLOGY | [address] [...] | | | | | dictated on 09/26/03, | | | | | | but the reportis not | | | | | | available on [employer] and | | | | | | [...] | + + + + + | [facility] | [address] | [place] [address] | | | LAB-MICRO | | | [...] + + + + + | [facility] | [address] | [place] [address] | | | LAB-MICRO | | | [...] | + + + + + | [facility] | [address] | [place] [address] | | | LAB-MICRO | | | | + + + + + documented in this encounter Visit Diagnoses Not on filedocumented in this encounter"
--- OUTSIDE RECORDS SUMMARY | ~2020-05-01 | XMS | Encounter Summary ---
Demographics + + + | Address | [address] | | | [place] [address] | + + + | Home Phone [...] Team Providers + +------+ + | Care Massage Therapist Name | Role | Phone | + +------+ + | Marta Jenkins SHERIFF DEPUTY | PCP | | + +------+ + Encounter Details +--------+ + + + + | Date | Type | Department | Care Team | Description | +--------+ + + + + | 11/19/ | Documentati | Digestive Health | Clinic, Surgery | | | 2019 | on | Center at [facility] [address] | | | | | | [address] [facility] | | | | | | for Health and | | | | | | Healing, [address] | | | | | | [place], [place] | | | | | | [address] | | | | | | [phone] | | | +--------+ + + + [...]
--- OUTSIDE RECORDS SUMMARY | ~2020-05-01 | XMS | Encounter Summary ---
Demographics + + + | Address | [address] | | | [place] [address] | + + + | Home Phone [...] Team Providers + +------+ + | Care Tie In Machine Operator Name | Role | Phone [...] as of this encounter Discharge Summaries Interface, Instrument And Electrical Technician In 04/28/2005 5:10 PM PDTAdmission Date: [...]
--- OUTSIDE RECORDS SUMMARY | ~2020-05-01 | XMS | Encounter Summary ---
Demographics + + + | Address | [address] | | | [place] [address] | + + + | Home Phone [...] + +------+ + | Care Warehouse Supervisor Name | Role | Phone | [...] Pavilion | | | | | | [place], [place] | | | | | | [address] | | | | | | [phone] | | | +--------+ + + + [...] near | | | | | | [id number] | | | | | | appearance [...]
--- OUTSIDE RECORDS SUMMARY | ~2020-05-01 | XMS | Encounter Summary ---
Demographics + + + | Address | [address] | | | [place] [address] | + + + | Home Phone [...] Team Providers + +------+ + | Care Special Education Coordinator Name | Role | Phone | [...] | | Surgery -Hand | [facility] | | | | | Surgery [address] | [place] [address] | | | | | [address] | | | | | | Mailcode: [id number] | | | | | | [facility] | | | | | | [place], [place] | | | | | | [address] | | | | | | [phone] | | | +--------+ + + + [...] + + + + | PRODUCT | [id number] | | [facility] | | | UNIT [...] | + + + + + | [facility] DEPARTMENT OF | [address] | [place] [address] | | | PATHOLOGY | [address] | | | + + + + + | [facility] DEPARTMENT OF | [address] | [place] [address] | | | PATHOLOGY | [address] [...] + + + + | PRODUCT | [id number] | | [facility] | | | UNIT [...] | + + + + + | [facility] DEPARTMENT OF | [address] [facility] | [place] [address] | | | PATHOLOGY | [address] | | | + + + + + | [facility] DEPARTMENT OF | [address] [facility] | [place] [address] | | | PATHOLOGY | [address] [...] | [facility] | [address] | [place] [address] | | | PATHOLOGY | [address] | | | + + + + + | [facility] | [address] | [place] [address] | | | PATHOLOGY | [address] | | | + + + + + documented in this encounter Visit Diagnoses Not on filedocumented in this encounter"
--- OUTSIDE RECORDS SUMMARY | ~2020-05-01 | XMS | Encounter Summary ---
Demographics + + + | Address | [address] | | | [place] [address] | + + + | Home Phone [...] Providers + +------+ + | Care Bariatric Coordinator Name | Role | Phone | [...] | Procedures | Roxann Ayala | [place], | | | | | CONSULT TO | [place], [place] | [place] | | | | | ORTHOPEDICS | | | | | | | AND | Phone: | Phone: | | | | | REHABILITATI | [phone] | [phone] | | | | | ON | Fax: | Fax: | | | | | | [phone] | [phone] | +--------+--------+ + + + + Diagnostic [...] | | y | [address] [place] | | | | | Procedures | Roxann Ayala | Research | | | | | MRI SPINE | [place], [place] | Center | | | | | LUMBAR WO | | [place], [place] | | | | | CONT | Phone: | [address] | | | | | | [phone] | Phone: | | | | | | Fax: | [phone] | | | | | | [phone] | Fax: | | | | | | | [phone] | +--------+--------+ + + + + Reason [...] | | | Orthopedics | | | [address] [facility] | | | | | | | [address] | | | | | | | [place], | | | | | | | [place] | | | | | | | [address] | | | | | | | Phone: | | | | | | | [phone] | | | | | | | Fax: | | | | | | | [phone] | +--------+--------+ + + + + Encounter [...] | | | | [facility] | [address] | | | | | [place], [place] | [phone] | | | | | [address] | | | | | | [phone] | | | +--------+---------+ + + + [...] and plan of care. TYRONE COLBY MD [facility] [address] [place] [address] Mailcode: [id number] [facility] [address] Taz Grider M D - 07/06/2010 9:32 AM PDTCC: Right back pain. SUBJECTIVE Shleby Galdamez was seen back today. Her symptoms [...] of | | | | | | O9xqzkpreo/superior | | | | | | corner, [...]
--- OUTSIDE RECORDS SUMMARY | ~2020-05-01 | XMS | Encounter Summary ---
Demographics + + + | Address | [address] | | | [place] [address] | + + + | Home Phone [...] Providers + +------+ + | Care Dental Office Manager Name | Role | Phone | [...] of this encounter Progress Notes Interface, Mobile Development Manager In - 07/18/2006 3:04 AM PDTCLINIC DATE: [...] further treatment options. Brigette Lim P.A.-C / [id number] / [id number] / [id number] / Tdocumented in this encounter Plan of Treatment Not on filedocumented as of this encounter Visit Diagnoses Not on filedocumented in this encounter"
--- OUTSIDE RECORDS SUMMARY | ~2020-05-01 | XMS | Encounter Summary ---
Demographics + + + | Address | [address] | | | [place] [address] | + + + | Home Phone [...] Providers + +------+ + | Care Medical Program Specialist Name | Role | Phone [...] of this encounter Progress Notes Interface, Press Setter In - 08/28/2006 3:05 AM PSTCLINIC DATE: [...] to Dr. Gant. Benson Cooper M.D. / [id number] / [id number] / [id number] / [id number] C: 11/27/1999 kavita cc: Helio Noland M.D. [facility] [address] Lloyd Garcia M.D. Department of Orthopedics documented in this encounter Plan of Treatment Not on filedocumented as of this encounter Visit Diagnoses Not on filedocumented in this encounter"
--- OUTSIDE RECORDS SUMMARY | ~2020-05-01 | XMS | Encounter Summary ---
Demographics + + + | Address | [address] | | | [place] [address] | + + + | Home Phone [...] Providers + +------+ + | Care Manager Research Development Name | Role | Phone | + [...] | | | Mailcode: [id number] | [facility] [place] | | | | | Physician[facility] [address] | [address] | | | | | [place], [place] | [phone] | | | | | [address] | | | | | | [phone] | | | +--------+ + + + [...]
--- OUTSIDE RECORDS SUMMARY | ~2020-05-01 | XMS | Encounter Summary ---
Demographics + + + | Address | [address] | | | [place] [address] | + + + | Home Phone [...] Providers + +------+ + | Care Manager Transport Name | Role | Phone | + [...] [place] | | | | | | [place], [place] | | | | | | [address] | | | | | | [phone] | | | +--------+---------+ + + + [...] fairly well controlled at this point with [place]. She has been wbat and is overall [...]
--- OUTSIDE RECORDS SUMMARY | ~2020-05-01 | XMS | Encounter Summary ---
Demographics + + + | Address | [address] | | | [place] [address] | + + + | Home Phone [...] Team Providers + +------+ + | Care Welding Machine Operator Friction Name | Role | Phone | + +------+ + | Jaimie Monreal MD | PCP | | + +------+ + Reason for Visit + +--------+ + | Reason | Onset | Comments | | | Date | | + +--------+ + | Appointment | 01/20/ | | | | 2020 | | + +--------+ + Encounter Details +--------+ + + + + | Date | Type | Department | Care Team | Description | +--------+ + + + + | 01/20/ | Telephone | [facility] | Xiang Sepulveda, | Appointment | | 2020 | | [facility] | DO [address] | | | | | D[address]OLOGY [address] | [place], [place] | | | | | [address] | [address] | | | | | [place], [place] | | | | | | [address] | | | | | | [phone] | | | +--------+ + + + [...] encounter Miscellaneous Notes Telephone Encounter - Antonella Sprague, Rn Wellness - 01/21/2020 2:26 PM PDTCalled and left a message for patient reminding of appointment on 01/24 and about the screening pro cess/ no visitor policy. doc umented in this encounter Plan of Treatment +--------+---------+ + + + | Date | Type | Specialty | Care Team | Description | +--------+---------+ + + + | 05/23/ | Office | Pain Medicine | Xiang Sepulveda, | | | 2019 | Visit | | [address] | | | | | | [place] | | | | | | [address] | | | | | | | | +--------+---------+ + + + documented as of this encounter Visit Diagnoses Not on filedocumented in this encounter"
--- OUTSIDE RECORDS SUMMARY | ~2020-05-01 | XMS | Encounter Summary ---
Demographics + + + | Address | [address] | | | [place] [address] | + + + | Home Phone [...] Providers + +------+ + | Care Ordnance Truck Installation Mechanic Name | Role | Phone | [...] as of this encounter Progress Notes Interface, Fur Dressing Supervisor In - 04/28/2005 5:10 PM PDTClinic Date: 08/31/2003 Orthopedic The patient called on August 31, 2003, requesting a prescription refill for oxycodone. A prescription refill was granted 50, 5 mg oxycodone was sent. This prescription refill was handled by Mariella Camacho. Dev Fleming M.D. / [id number] / [id number] / [id number] / Tdocumented in this encounter Plan of Treatment Not on filedocumented as of this encounter Visit Diagnoses Not on filedocumented in this encounter"
--- OUTSIDE RECORDS SUMMARY | ~2020-05-01 | XMS | Encounter Summary ---
Demographics + + + | Address | [address] | | | [place] [address] | + + + | Home Phone [...] Providers + +------+ + | Care Library Circulation Clerk Name | Role | Phone | [...] | | | Mailcode: [id number] | [place], [place] | | | | | [facility] | [address] | | | | | [place], [place] | [phone] | | | | | [address] | | | | | | [phone] | | | +--------+ + + + [...]
--- OUTSIDE RECORDS SUMMARY | ~2020-05-01 | XMS | Encounter Summary ---
Demographics + + + | Address | [address] | | | [place] [address] | + + + | Home Phone [...] Pavilion | | | | | | [place], [place] | | | | | | [address] | | | | | | [phone] | | | +--------+ + + + [...]
--- OUTSIDE RECORDS SUMMARY | ~2020-05-01 | XMS | Encounter Summary ---
Demographics + + + | Address | [address] | | | [place] [address] | + + + | Home Phone [...] Team Providers + +------+ + | Care Conservation Educator Name | Role | Phone | [...] [facility] | | | | | | [address] | | | | | | Loop Physician's | | | | | | [place], [address] [place] [address] | | | | | | [place], [place] | | | | | | [address] | | | | | | [phone] | | | +--------+ + + + [...] | + + + +---------+--------+ + | Benham-3 Fatty | Take by mouth. | | [...]
--- OUTSIDE RECORDS SUMMARY | ~2020-05-01 | XMS | Encounter Summary ---
Demographics + + + | Address | [address] | | | [place] [address] | + + + | Home Phone [...] Team Providers + +------+ + | Care Piano Builder Name | Role | Phone | [...] as of this encounter Progress Notes Interface, Manufacturing Specialist In - 04/28/2005 7:30 PM PDTClinic Date: [...] followup is scheduled today. Lloyd Garcia M.D. Acquisitions Logistics Analyst, Orthopedics and Rehabilitation / [id number] / [id number] / [id number] / [id number] cc: Ninfa Guillen M.D. [address] [place] [id number] signed by Interface, Manufacturing Specialist In at 04/28/2005 7:3 0 PM PDTdocumented in this encounter Plan of Treatment Not on filedocumented as of this encounter Visit Diagnoses Not on filedocumented in this encounter"
--- OUTSIDE RECORDS SUMMARY | ~2020-05-01 | XMS | Encounter Summary ---
Demographics + + + | Address | [address] | | | [place] [address] | + + + | Home Phone [...] Providers + +------+ + | Care Ocean Export Coordinator Name | Role | Phone [...] Pavilion | | | | | | [place], [place] | | | | | | [address] | | | | | | [phone] | | | +--------+ + + + [...] | + + + + + | [facility] DEPARTMENT | [address] [facility] | [place] [address] | | | PATHOLOGY | [address] | | | + + + + + | [facility] | [address] [place] [address] | [place] [address] | | | PATHOLOGY | [address] [...] DEPARTMENT OF | [address] | [place] [address] | | | PATHOLOGY | [address] | | | + + + + + | [facility] | [address] | [place] [address] | | | PATHOLOGY | [address] | | | + + + + + documented in this encounter Visit Diagnoses Not on filedocumented in this encounter"
--- OUTSIDE RECORDS SUMMARY | ~2020-05-01 | XMS | Encounter Summary ---
Demographics + + + | Address | [address] | | | [place] [address] | + + + | Home Phone [...] + +------+ + | Care Data Entry Associate Name | Role | Phone | [...] as of this encounter Progress Notes Interface, Knockout Worker In - 07/22/2006 3:18 AM PDTCLINIC DATE: [...] that. Jason Castano M.A. TAYE / SALEEM [id number] / [id number] / [id number] / Tdocumented in this encounter Plan of Treatment Not on filedocumented as of this encounter Visit Diagnoses Not on filedocumented in this encounter"
--- OUTSIDE RECORDS SUMMARY | ~2020-05-01 | XMS | Encounter Summary ---
Demographics + + + | Address | [address] | | | [place] [address] | + + + | Home Phone [...] Team Providers + +------+ + | Care It Systems Analyst Name | Role | Phone [...] as of this encounter Progress Notes Interface, Shipping Associate In - 04/28/2005 5:10 PM PDT Referred [...]
--- OUTSIDE RECORDS SUMMARY | ~2020-05-01 | XMS | Encounter Summary ---
Demographics + + + | Address | [address] | | | [place] [address] | + + + | Home Phone [...] Team Providers + +------+ + | Care Molded Grid And Parts Inspector Name | Role | Phone | [...] as of this encounter Progress Notes Interface, Paint Line Production Supervisor In - 09/08/2006 1:11 AM PSTCLINIC DATE: [...] evaluation. Lloyd Garcia MD / [id number] / [id number] / [id number] / cc: Matthew Garcia MD [address] [place], [place] [id number] signed by Interface, Paint Line Production Supervisor In at 09/08/2006 1:11 AM PSTdocumented in this encounter Plan of Treatment Not on filedocumented as of this encounter Visit Diagnoses Not on filedocumented in this encounter"
--- OUTSIDE RECORDS SUMMARY | ~2020-05-01 | XMS | Encounter Summary ---
Demographics + + + | Address | [address] | | | [place] [address] | + + + | Home Phone [...] Providers + +------+ + | Care Wine Manager Name | Role | Phone | [...] + + + + | 11/13/ | Cold Mill Operator | Infectious | Carolina Putnam | | | 2010 | | Diseases at [facility] | K, PA-C [address] | | | | | [address] | [facility] | | | | | Loop Physician's | [place], [place] | | | | | [place], 3rd floor | [address] | | | | | [place], [place] | [phone] | | | | | [address] | | | | | | [phone] | | | +--------+ + + + [...]
--- OUTSIDE RECORDS SUMMARY | ~2020-05-01 | XMS | Encounter Summary ---
Demographics + + + | Address | [address] | | | [place] [address] | + + + | Home Phone [...] + + + + + | Casandra Smiht | ROBERTO | [place] | | + + + + + Care Team Providers + +------+ + | Care Dental Amalgam Processor Name | Role | Phone | [...] | | | | | or | [address] | Pavilion | | | | | localized, | | [place], [place] | | | | | pelvic | | [address] | | | | | region and | | Phone: | | | | | thigh | | [phone] | | | | | Intervertebr | | Fax: | | | | | al lumbar | | [phone] | | | | | disc | [...] | [facility] [address] | [address] [facility] | Hip (Primary Dx) | | | | [address] | [address] [place], | | | | | Mailcode: PV430 | [place] [address] | | | | | [facility] | | | | | | [place], [place] | | | | | | [address] | | | | | | [phone] | | | +--------+---------+ + + + [...]
--- OUTSIDE RECORDS SUMMARY | ~2020-05-01 | XMS | Encounter Summary ---
Demographics + + + | Address | [address] | | | [place] [address] | + + + | Home Phone [...] Team Providers + +------+ + | Care Educational/Development Assistant Name | Role | Phone | [...] as of this encounter Progress Notes Interface, Veterinary Medicine Doctor In - 08/20/2006 3:01 AM PSTCLINIC DATE: [...] views. Fox Chopra M.D. BETH / SALEEM [id number] / [id number] / [id number] / C: 02/18/2000 jerman Noland M.D. [place], [place] [address] [place] [address], [address] [place], [place] [id number] signed by Interface, Veterinary Medicine Doctor In at 08/20/2006 3:01 AM PSTInterface, Veterinary Medicine Doctor In - 08/20/2006 3:01 AM PSTCLINIC DATE: [...] her physical therapist, Rustam Sykes, at [facility] in [place], [place], which indicates that she has been [...] in any additional way at phone number [phone]. PHYSICAL EXAMINATION: Essentially unchanged from previous exams. [...] necessary at this point. Lloyd Garcia M.D. Alcohol Still Operator, Orthopedics and Rehabilitation / [id number] / [id number] / [id number] / cc: Helio Noland MD [address] [place], [place] [address] [place] [address] documented in this encounter Plan of Treatment Not on filedocumented as of this encounter Visit Diagnoses Not on filedocumented in this encounter"
--- OUTSIDE RECORDS SUMMARY | ~2020-05-01 | XMS | Encounter Summary ---
Demographics + + + | Address | [address] | | | [place] [address] | + + + | Home Phone [...] Providers + +------+ + | Care Stock Preparer Name | Role | Phone | + [...] as of this encounter Progress Notes Interface, Orthodontic Lab Technician In - 04/19/2006 3:09 AM PDTCLINIC DATE: [...] questions. Jason Castano M.A. Orthopedics / HS [id number] / [id number] / [id number] / Tdocumented in this encounter Plan of Treatment Not on filedocumented as of this encounter Visit Diagnoses Not on filedocumented in this encounter"
--- OUTSIDE RECORDS SUMMARY | ~2020-05-01 | XMS | Encounter Summary ---
Demographics + + + | Address | [address] | | | [place] [address] | + + + | Home Phone [...] Team Providers + +------+ + | Care Outreach Nurse Name | Role | Phone | [...] | Transcriptions | + + | Interface, Vocational Technical Education Teacher In - 02/27/2006 3:05 AM PDT Date: | | 09/27/2003Attending Surgeon: Lloyd Garcia M.D.Manager Erp(s): | | Benson Boone M.D.Preoperative Diagnosis:Right hip [...] Boone M.D.Lloyd Garcia M.D.RT / | | [id number] / [id number] / [id number] / [id number]: 09/27/2003T: 09/28/2003 | |( ) which was [...] | | | |RT / HS | |[id number] / [id number] / [id number] / [id number] | | | | | + + OPERATION RECORD (09/25/2003) + + | Transcriptions | + + | Interface, Vocational Technical Education Teacher In - 02/27/2006 3:05 AM PDT Date: | | 09/25/2003Attending Surgeon: Lloyd Garcia M.D.Manager Erp(s): | | MD Fox Gold, | | [...] | [facility] | | from [...] thenbrought back to Operating Room #7 at [facility] | | [place].General endotracheal anesthesia was administered. Antibiotics werewithheld | [...] | procedure well without apparent complications.Lloyd Garcia M.D.Sock Drier, | | Orthopedics and Rehabilitation / [id number] / [id number] / [id number] / [id number]: 09/25/2003T: | | 09/26/2003 | |plate and [...] |brought back to Operating Room #7 at [facility]. | |General endotracheal anesthesia was administered. [...] | | | |Lloyd Garcia M.D. | |Sock Drier, Orthopedics and Rehabilitation | | | | / | |[id number] / [id number] / [id number] / [id number] | | | | | + + documented in this encounter Visit Diagnoses Not on filedocumented in this encounter"
--- OUTSIDE RECORDS SUMMARY | ~2020-05-01 | XMS | Encounter Summary ---
Demographics + + + | Address | [address] | | | [place] [address] | + + + | Home Phone [...] Team Providers + +------+ + | Care Sequins Slinger Name | Role | Phone | + [...] | Karen Del Rosario NP | [facility] [address] | | | | | TRANSTHORACI | [address] | [address] | | | | | C | [address] | [address] | | | | | ECHOCARDIOGR | Rd | [place] | | | | | AM, ADULT | [place], [place] | [facility] | | | | | | [address] | floor | | | | | | | [place], [place] | | | | | | | [address] | | | | | | | Phone: | | | | | | | [phone] | +--------+--------+ + + + + Diagnostic [...] | | | X-RAY | Karen E, BURN OUT SCARFING OPERATOR | [address] | | | | | ASPIRATION | [address] | [address] | | | | | OR INJECTION | [facility] | [place] [facility] | | | | | MAJOR JOINT | Rd | Health and | | | | | W/NEEDLE | [place], [place] | Healing, | | | | | PLCMT | [address] | Building [address], | | | | | | | 3rd Floor | | | | | | | [place], [place] | | | | | | | [address] | | | | | | | Phone: | | | | | | | [phone] | | | | | | | Fax: | | | | | | | [phone] | +--------+--------+ + + + + Reason [...] | | | | | | | [address] | | | | | | | [place]ett | | | | | | | Jamie [facility] | | | | | | | Hospital | | | | | | | [place], [place] | | | | | | | [address] | | | | | | | Phone: | | | | | | | [phone] | +--------+--------+ + + + + Encounter [...] Rd | | | 10/23/ | | Brevardasmita Vanegason | [place], [place] | | | 2010 | | (MNP/[facility]) | [address] | | | | | [place], [place] | [phone] | | | | | [address] | | | | | | | Jillian Bee MD | | | | | | [address] | | | | | | [address] [place], | | | | | | [place] [address] | | | | | | [phone] | | | | | | | | | | | | Tisha Figueroa FNP | | | | | | [address] | | | | | | [place] [place], | | | | | | [place] [address] | | | | | | [phone] | | | | | | | | | | | | Rustam Duenas MD | | | | | | [address] | | | | | | [place] [place], | | | | | | [place] [address] | | | | | | [phone] | | | | | | | | | | | | Benson Cooper MD | | | | | | [address] [place] | | | | | | [address] [place], [place] | | | | | | [address] | | | | | | | | | | | | Kalyan Arias MD | | | | | | [address] | | | | | | [place] [facility], | | | | | | [place] [address] | | | | | | [phone] | | | | | | | [...] might be different f rom the original. [facility] DEPARTMENT OF ORTHOPAEDICS & REHABILITATION INPATIENT HOSPITAL DISCHARGE SUMMARY & INTERDISCIPLINARY INSTRUCTIONS Patient: Chastity Galdamez CSN: [id number] Admission Date: 10/12/2010 Discharge Date: 10/22/2010 Attending Physician: Kalyan Arias MD PCP: Travis Cruz MD Service: [facility] Orthopaedics & Rehabilitation Diagnoses Principal Final Diagnosis: [...] WBAT Discharge POLST completed No Destination: Destination: Jail Facility Condition on Discharge Good Discharge Follow Up Provider and Clinic: Tesfaye Saenz, Orthopaedic Surgery . Appointment: Please call clinic to make appointment for 2 weeks after your surgery for sut ure/staple removal and wound check. Call [phone] to arrange appointment date and time. Outpatient antibiotics: [facility] referral has been made (for outpatient antibiotics). -While on outpatient antibiotics, weekly CBC/diff, CMP, ESR, & CRP should be checked, with results faxed to Dr. Teresa or Elvia SPENCE at [facility] clinic (fax #[phone]). Current Discharge Medication List START taking these [...] W-FE,OTHER MIN (CENTRUM ORAL) Take by mouth. [place]-3 Fatty Acids-Vitamin E (FISH OIL) 1,000 mg [...] administration instructions. - Call orthopedic clinic at [phone] if any persistent, localized swelling that does [...] and ask for the orthopaedic surgery resident youth liaison officer. Additional postop instructions/ What to expect: [...] a pharmacy. Please arrange for someone to vegetable picker your prescription or allow additional time [...] 2 weeks (or as previously scheduled). Call [phone] to confirm or schedul e this appointment. [...] Condition on Discharge: Improved Discharging Patient To: Jail Facility Date and Time of Discharge Summary Completion: 10/20/2010, 11:07 AM Discharging Provider: Javier aLwrence Discharging Attending: Kalyan Arias MD documented in [...] + + + +---------+ + + | [place]-3 Fatty | Take by mouth. | | [...] 11 Date: 10/23/2010 Patient: CHASTITY Osei TALLY [id number] Interval Hx: Afebrile. Wants to go home. [...] the sural, saphenous, deep peroneal, superficial paco josuha, and tibial nerve distributions with no exceptions. [...] she may arrange timely follow up in [facility] clinic. While o n outpatient antibiotics, weekly CBC/diff, CMP, ESR, & CRP should be checked, with results f axed to Dr. Teresa or Elvia SPENCE at [facility] clinic (fax #[phone]). -Dispo plan: pt requires 3 days of flagyl treatment for C. Diff before discharge to long term facility. D/C to long term facility today Samuel Montaño MD - 10/22/2010 7:24 AM PST Ortho Progress Note Hospital Day: 10 Date: 10/22/2010 Author: SAMUEL BOWEN MD Patient: CHASTITY Osei TALLY [id number] Interval Hx: Afebrile. WBC up yesterday and [...] Dr. Teresa or Elvia Putnam PA at [facility] clinic (fax #[phone]). -Dispo plan: pt requires 3 days of flagyl treatment for C. Diff before discharge to [facility] nursing facility. Possible D/C to long term facility today Samuel Montaño MD - 10/21/2010 7:16 AM PST Ortho Progress Note Hospital Day: 9 Date: 10/21/2010 Author: SAMUEL BOWEN MD Patient: CHASTITY Osei TALLY [id number] Interval Hx: Afebrile overnight. Comfortable and without [...] Dr. Teresa or Elvia Putnam PA at [facility] clinic (fax #[phone]). -Dispo plan: pt requires 3 days of flagyl treatment for C. Diff before discharge to skill ed nursing facility. Plan to D/C to long term facility on Saturday10/22/10. Lucero Petersen M D [...] care for this patient. LUCERO KNOX MD [address] Clinical Hospitalist Service Count Includes [facility] [place] EPIC DEPARTMENT: Hosp ([facility])- [id number] Place of Service: IP - [id number] [facility] [id number] CPT: 73983 Subsequent Visit Exp Prob Foc/Mod Complexity 25 min I spent 25 minutes acqw-ri-tlhg with this patient of which greater than [...] patient is discharged. Please notify OPAT clinic [id number] re: discharge date, where patient is going (i.e. home, SNF ) and home IV provider if applicable. [facility] Department of Infectious Disease Outpatient IV Antibiotic Therapy Clinic (OPAT) Pager ID: [phone] [facility] [address] Mail Code F940 [place] [address] OPAT teaching note: Education and training for [...] PCP . I gave the patient my [facility] business card, and let them know that our clinical operations manager, Tonja Keller, will be contacting them after discharge to make their first [facility] clinic follow-up appointment. I explained that labs [...] from antibiotics occur, we will ask the [facility] infusion agency to alter the dose of antibiotics, or even change the antibiotics. I expla ined that we will communicate patient's progress and plan with PCP, surgeon, and the home in [employer]. I reviewed the possible complications PICC lines [...] unable to contact the IV company or [facility], then to present to the ED. I verified that the patient has a primary care provider, and that they will follow-up with them following this hospitalization in regards to other medical issues such as chronic pain, diabetes, or high blood pressure for which we do not provide any care. I provided the patient with the [facility] welcome letter that reiterates the above teaching. I spent 25 minutes in education and training in patient self management for IV antibiotic a nd PICC line use with greater than 50% spent on counseling and/or coordination of care. [facility] DEPARTMENT: IDC INFECT DIS CONSULT - [id number] Place of Service: Inpatient Date of Service: 10/20/2010 CSN: [id number] Suggested Level of Care: 86017- Subsequent hosp care, 25 min Javier Bunn [...] to Dr. Teresa or Elvia SPENCE at [facility] clinic (fax #[phone]). -Please ensure there is a baseline CBC, CMP, ESR, and CRP prior to discharge.--ordered tod ay -Dispo plan: pt requires 3 days of flagyl treatment for C. Diff before discharge to [facility]. Plan to D/C to long term facility on Saturday10/22/10. Lucero Petersen MD - [...] (pt does not want insulin coverage) (10/18/10 6700) Lab Results Component Value Date INR 1.07 [...] Prophylaxis: Per primary team. LUCERO KNOX MD Tub Pullerpump assembler Clinical Hospitalist Service Division [facility] Medicine Department of Medicine [facility] DEPARTMENT: Hosp ([facility])- [id number] Place of Service: - [id number] Modifiers:GC Resident Involved: No CPT: 85810 Subsequent Visit Exp Prob Foc/Mod Complexity 25 min I spent 25 minutes fbsf-mk-rhhc with this patient of which greater than [...] Intake/Output Summary (Last 24 hours) at 10/19/10 0610 Last data filed at 10/19/10 0422 Gross [...] Prophylaxis: Per primary team. LUCERO KNOX MD Tub Pullerpump assembler Clinical Hospitalist Service Division of Hospital Medicine Department of Medicine Count Includes [facility] DEPARTMENT: Hosp ([facility])- [id number] Place of Service: Modifiers:GC Resident Involved: No CPT: 23224 Subsequent Visit Exp Prob Foc/Mod Complexity 25 min I spent 25 minutes huhb-hy-gsfv with this patient of which greater than [...] -Dispo plan: pending infectious disease recommendations. Lucero Petresen MD - 10/17/2010 6:25 PM PST HOSPITALIST [...] (10/16/102111) CBG Intervention: (Pt refused CBG) (10/17/10 4435) Lab Results Component Value Date INR 1.07 [...] as well as aspirate LUCERO KNOX MD Tub Pullerpump assembler Clinical Hospitalist Service [facility] Medicine Department of Medicine [facility] DEPARTMENT: Hosp ([facility])- [id number] Place of Service: IP - 35281 Modifiers:GC Resident Involved: No CPT: 49247 Subsequent Visit Detailed/High complexity 35 min I spent 40 minutes pnqr-ha-nkbt with this patient of which greater than [...] Cohen MD - 10/16/2010 9:36 PM PST [facility] ORTHOPAEDIC SURGERY POST OPERATIVE CHECK IDENTIFICATION: Patient: [...] consult. WBAT BLE xrays Jillian Farfan MD Count Includes [facility] [place] Department of Orthopaedics & Rehabilitation [address] [facility] Mail Code: OP31 Amari TAMEZ [phone] [email or web address] Pager: [phone] The above was formulated both independently and [...] immobile. Wearing Priscilla Hose. DAVID KNIGHT MD [facility] 6A Tub Pullerpump assembler Clinical Hospitalist Service Count Includes [facility] EPIC DEPARTMENT: Hosp ([facility])- [id number] Place of Service: IP - 88687 [facility] [id number] Modifiers:GC Resident Involved: No Service: Ortho Suggested CPT: 98039 Subsequent Visit Exp Prob Foc/Mod Complexity 25 min I spent more than 30 minutes tfjz-dr-ldup with the patient of which greater than 50% was sp ent co-ordinating care acoreji, David Evangelista MD - 10/15/2010 7:57 AM PST CLINICAL HOSPITALIST SERVICE ([facility])-PROGRESS NOTE HOSPITAL DAY: 3 Author: DAVID [...] she is quite immobile. DAVID KNIGHT MD [address] Tub Pullerpump assembler Clinical Hospitalist Service Count Includes [facility] [place] EPIC DEPARTMENT: Hosp ([facility])- [id number] Place of Service: - 156[address] [facility] [id number] Modifiers:GC Resident Involved: No Service: Primary Suggested CPT: 50714 Subsequent Visit Detailed/High complexity 35 min I spent more than 35 minutes xaek-vp-zhff with the patient of which greater than [...] + + + | IP CONSULT TO [facility] | Routin | 10/19/2010 | | [...] [facility] | [address] | [place], [place] | | | THERAPY | [address] | [address] | | + + + + + [...] | [facility] DEPARTMENT | [address] | [place] [address] | | | PATHOLOGY | [address] [...] DEPARTMENT OF | [address] | [place] [address] | | | PATHOLOGY | [address] [...] | [facility] DEPARTMENT | [address] | [place] [address] | | | PATHOLOGY | [address] [...] [facility] | [address] | [place], [place] | | | THERAPY | [facility] | [address] | | + + + + + [...] [facility] | [address] | [place], [place] | | | SUPRIYA POINT OF CARE | [address] | [address] | | | TESTS | | | [...] | [facility] DEPARTMENT | [address] | [place] [address] | | | PATHOLOGY | [address] [...] (H) | 60 - 99 mg/dL | [facility] | | | PLASMA | | | [...] DEPARTMENT OF | [address] | [place] [address] | | | PATHOLOGY | [address] [...] | [facility] DEPARTMENT | [address] [facility] | [place] [address] | | | PATHOLOGY | [address] [...] + + + | [facility] | [address] | [place], [place] | | | THERAPY | [address] | [address] | | + + + + + [...] + + | [facility] DEPARTMENT OF | [address] | [place] [address] | | | PATHOLOGY | [address] [...] | + + + + + | [facility] | [address] | [place] [address] | | | PATHOLOGY | [address] [...] + + | [facility] DEPARTMENT OF | [address] | [place] [address] | | | PATHOLOGY | [address] [...] | | | | Signed by: Angelo uBnch, | | | | | | SAND BOBBER | | | | | | | | | | | | | | | | | | | | | | | | | | | | | |Electronically Signed by: Angelo Bunch SAND BOBBER | | | | + + + + +-------- ------+ + + | Specimen | + + | | + + + + + + + | Performing | Address | City/State/Zipcode | Phone Number | | Organization | | | | + + + + + | [facility] | [address] | [place], [place] | | | THERAPY | [address] | [address] | | + + + + + [...] + + | [facility] | [address] [facility] | [place], [place] | | | THERAPY | [facility] | [address] | | + + + + + [...] [facility] | [address] | [place], [place] | | | THERAPY | [address] | [address] | | + + + + + [...] effective 10/26/08 | [facility] | | RLB ([facility]) Stacy | [address] | | [place] [address] [facility] | LABORATORY | | [place] [address] | | + + + + + + + + | Performing | Address | City/State/Zipcode | Phone Number | | Organization | | | | + + + + + | [facility] | [address] [facility] | [place] [address] | | | LABORATORY | | | [...] DEPARTMENT OF | [address] | [place] [address] | | | PATHOLOGY | [address] [...] DEPARTMENT OF | [address] | [place] [address] | | | PATHOLOGY | [address] | | | + + + + + SEDIMENTATION RATE (10/20/2010 6:44 AM PST) + +---------+ + + + | Component | Value | Ref Range | Performed | Pathologist | | | | | At | Signature | + +---------+ + + + | SEDIMENTATI | 108 (H) | <31 mm/hr | [facility] | | | ON RATE | | [...] | + + + + + | [facility] | [address] | [place] [address] | | | PATHOLOGY | [address] [...] | + + + + + | [facility] | [address] | [place] [address] | | | LABORATORY | | | [...] DEPARTMENT OF | [address] | [place] [address] | | | PATHOLOGY | [address] [...] Miles, | | | | | | SAND BOBBER | | | | | | | [...] [facility] | [address] | [place], [place] | | | THERAPY | [address] | [address] | | + + + + + [...] + + | [facility] DEPARTMENT OF | [address] | [place] [address] | | | PATHOLOGY | [address] [...] | + + + + + | [facility] | [address] | [place] [address] | | | PATHOLOGY | [address] [...] | + + + + + | [facility] | [address] | [place] [address] | | | PATHOLOGY | [address] | | | + + + + + IP CONSULT TO [facility] TEAM (10/19/2010 10:48 AM PST) + + [...] Long 1cm Trimmed Lot # (or Sticker): [id number] INSERTION SITE: | | | - Cephalic [...] CXR [place]: [place] [id number] | | | Assisted by: na | [...] CATHETERProduct Name: BoogieConstruction: | | Single4 Fr60cm [id number] TrimmedLot # (or Sticker): [id number] SITE: - | | CephalicLeftLocal anesthetic used: [...] by CXRPlaced by: Anabella Ramirez RN IVT [id number] | | by: na | |PICC CATHETER | |Product Name: Boogie | |Construction: Single | |4 Fr | |60cm Long | |1cm Trimmed | |Lot # (or Sticker): [id number] | | | |INSERTION SITE: - Cephalic [...] | |Placed by: [place] [id number] | |Assisted by: na | + + X-RAY PORTABLE CHEST 1 VIEW (10/19/2010 10:45 AM PST) + + + + + + | Component | Value | Ref Range | Performed | Pathologist | | | | | At | Signature | + + + + + + | X-RAY | STUDY: [place] CHEST 1 VIEW | | | | [...] | | | | | | Link ALANwer: | | | | | | ELEAZAR [...] + +---------+ + + | [facility] DEPARTMENT OF | | | | | [...] Guardado, | | | | | | SAND BOBBER | | | | + + + + + + + + | Specimen | + + | | + + + + + + + | Performing | Address | City/State/Zipcode | Phone Number | | Organization | | | | + + + + + | [facility] | [address] | [place], [place] | | | THERAPY | [address] | [address] | | + + + + + [...] | + + + + + | [facility] | [address] | [place] [address] | | | PATHOLOGY | [address] [...] DEPARTMENT OF | [address] | [place] [address] | | | PATHOLOGY | [address] [...] | + + + + + | [facility] | [address] | [place] [address] | | | PATHOLOGY | [address] [...] [facility] | [address] | [place], [place] | | | THERAPY | [address] | [address] | | + + + + + [...] [facility] | [address] | [place], [place] | | | SUPRIYA POINT OF CARE | [address] | [address] | | | TESTS | | | [...] | [address] | [place] [address] | | | PATHOLOGY | [address] [...] At | + + + | RLB ([facility]) Regis | REGIS | | [place] [address] [facility] | [facility] | | [place] [address] | LAB-MICRO | + + + + + + + + | Performing | Address | City/State/Zipcode | Phone Number | | Organization | | | | + + + + + | [facility] | [address] [facility] | [place] [address] | | | LAB-MICRO | | | [...] | [facility] DEPARTMENT | [address] | [place] [address] | | | PATHOLOGY | [address] [...] (H) | 60 - 99 mg/dL | [facility] - | | | GLUCOSE, | | [...] [facility] | [address] | [place], [place] | | | JADA EPPS OF CARE | [address] | [address] | | | TESTS | | | [...] [facility] | [address] | [place], [place] | | | JADA EPPS OF CARE | [address] | [address] | | | TESTS | | | [...] DEPARTMENT OF | [address] | [place] [address] | | | PATHOLOGY | [address] [...] | + + + + + | [facility] | [address] | [place] [address] | | | PATHOLOGY | [address] [...] | + + + + + | [facility] | [address] | [place] [address] | | | PATHOLOGY | [address] [...] + + | [facility] | [address] [facility] | [place], [place] | | | THERAPY | [address] | [address] | | + + + + + [...] [facility] | [address] | [place], [place] | | | THERAPY | [address] | [address] | | + + + + + [...] [facility] | [address] | [place], [place] | | | THERAPY | [address] | [address] | | + + + + + [...] + +---------+ + + | [facility] DEPARTMENT OF | | | | | [...] RLB ([address] [facility]) | | | [facility] [address] | | | [place] [address] | | + + + + + + + + | Performing | Address | City/State/Zipcode | Phone Number | | Organization | | | | + + + + + | [facility] | [address] | [place] [address] | | | LABORATORY | | | [...] [facility] | [address] | [place], [place] | | | THERAPY | [address] | [address] | | + + + + + [...] [facility] | [address] | [place], [place] | | | THERAPY | [address] | [address] | | + + + + + [...] [facility] | [address] | [place], [place] | | | JADA [facility] | [address] | [address] | | | TESTS | | | [...] [facility] | [address] | [place], [place] | | | JADA EPPS OF CARE | [address] | [address] | | | TESTS | | | [...] [facility] | [address] | [place], [place] | | | SUPRIYA [facility] | [address] | [address] | | | TESTS | | | [...] [facility] | [address] | [place], [place] | | | THERAPY | [address] | [address] | | + + + + + [...] | + + + + + | [facility] | [address] | [place] [address] | | | PATHOLOGY | [address] [...] + + + + + | [facility] | [address] | [place] [address] | | | PATHOLOGY | [address] [...] | + + + + + | [facility] DEPARTMENT OF | [address] | [place] [address] | | | PATHOLOGY | [address] [...] DEPARTMENT OF | [address] | [place] [address] | | | PATHOLOGY | [address] [...] DEPARTMENT OF | [address] | [place] [address] | | | PATHOLOGY | [address] [...] + + + | [facility] | [address] | [place] [address] | | | LAB-MICRO | | | [...] + + + | [facility] | [address] | [place] [address] | | | LAB-MICRO | | | [...] Lab) | | | | | | [facility] | | | | | | [address] | | | [address] | | | | | | [place] [address] | | | | + + + + + + + + | Specimen | + + | | + + + + + + + | Performing | Address | City/State/Zipcode | Phone Number | | Organization | | | | + + + + + | [facility] | [address] | [place] [address] | | | LAB-MICRO | | | [...] + + + | [facility] | [address] | [place] [address] | | | LAB-MICRO | | | [...] Lab) | | | | | | [facility] | | | | | | [address] | | | | | [address] | | | | | | [place] [address] | | | | + + + + + + + + | Specimen | + + | | + + + + + + + | Performing | Address | City/State/Zipcode | Phone Number | | Organization | | | | + + + + + | [facility] | [address] | [place] [address] | | | LAB-MICRO | | | [...] + + + + + | [facility] | [address] | [place] [address] | | | LAB-MICRO | | | [...] Permanente | | | | | | [address] [facility] [address] | | | | | | [place], | | | | | | [place] [address] | | | | + + + + + + + + | Specimen | + + | | + + + + + + + | Performing | Address | City/State/Zipcode | Phone Number | | Organization | | | | + + + + + | [facility] | [address] | [place] [address] | | | LAB-MICRO | | | [...] Lab) | | | | | | [facility] | | | | | | [address] | | | [address] | | | | | | [place] [address] | | | | + + + + + + + + | Specimen | + + | | + + + + + + + | Performing | Address | City/State/Zipcode | Phone Number | | Organization | | | | + + + + + | [facility] | [address] | [place] [address] | | | LAB-MICRO | | | [...] + + + | [facility] | [address] | [place] [address] | | | LAB-MICRO | | | [...] + + + | [facility] | [address] | [place] [address] | | | LAB-MICRO | | | [...] Lab) | | | | | | [facility] | | | | | | [address] | | | | | | [address] | | | | | | [place] [address] | | | | + + + + + + + + | Specimen | + + | | + + + + + + + | Performing | Address | City/State/Zipcode | Phone Number | | Organization | | | | + + + + + | [facility] | [address] | [place] [address] | | | LAB-MICRO | | | [...] + + + | [facility] | [address] | [place] [address] | | | LAB-MICRO | | | [...] + + + | [facility] | [address] | [place] [address] | | | LAB-MICRO | | | [...] Permanente | | | | | | [address] | | | | | | [place], | | | | | | [place] [address] | | | | + + + + + + + + | Specimen | + + | | + + + + + + + | Performing | Address | City/State/Zipcode | Phone Number | | Organization | | | | + + + + + | [facility] | [address] | [place] [address] | | | LAB-MICRO | | | [...] + + + | [facility] | [address] | [place] [address] | | | LAB-MICRO | | | [...] + + + | [facility] | [address] | [place] [address] | | | LAB-MICRO | | | [...] Lab) | | | | | | [facility] | | | | | | [address] | | [address] | | | | | | [place] [address] | | | | + + + + + + + + | Specimen | + + | | + + + + + + + | Performing | Address | City/State/Zipcode | Phone Number | | Organization | | | | + + + + + | [facility] | [address] | [place] [address] | | | LAB-MICRO | | | [...] + + + | [facility] | [address] | [place] [address] | | | LAB-MICRO | | | [...] + + + | [facility] | [address] | [place] [address] | | | LAB-MICRO | | | [...] RLB | | | | | | ([address] Lab) | | | | | | [facility] | | | | | | [address] | | | | | | [address] | | | | | | [place] [address] | | | | + + + + + + + + | Specimen | + + | | + + + + + + + | Performing | Address | City/State/Zipcode | Phone Number | | Organization | | | | + + + + + | [facility] | [address] | [place] [address] | | | LAB-MICRO | | | [...] Permanente | | | | | | [address] | | | | | | [place], | | | | | | [place] [address] | | | | + + + + + + + + | Specimen | + + | | + + + + + + + | Performing | Address | City/State/Zipcode | Phone Number | | Organization | | | | + + + + + | [facility] | [address] | [place] [address] | | | LAB-MICRO | | | [...] + + + | [facility] | [address] | [place] [address] | | | LAB-MICRO | | | [...] + + + | [facility] | [address] | [place] [address] | | | LAB-MICRO | | | [...] Lab) | | | | | | [facility] | | | | | | [address] | | [address] | | | | | | [place] [address] | | | | + + + + + + + + | Specimen | + + | | + + + + + + + | Performing | Address | City/State/Zipcode | Phone Number | | Organization | | | | + + + + + | [facility] | [address] | [place] [address] | | | LAB-MICRO | | | [...] + + + | [facility] | [address] | [place] [address] | | | LAB-MICRO | | | [...] RLB | | | | | | ([address] Lab) | | | | | | [facility] | | | | | | [address] | | | | | | [address] | | | | | | [place] [address] | | | | + + + + + + + + | Specimen | + + | | + + + + + + + | Performing | Address | City/State/Zipcode | Phone Number | | Organization | | | | + + + + + | [facility] | [address] | [place] [address] | | | LAB-MICRO | | | [...] | + + + + + | [facility] | [address] | [place] [address] | | | LAB-MICRO | | | [...] Regis | | | | | | [facility] | | | | | | [address] | | | | | | [place], | | | | | | [place] [address] | | | | + + + + + + + + | Specimen | + + | | + + + + + + + | Performing | Address | City/State/Zipcode | Phone Number | | Organization | | | | + + + + + | [facility] | [address] | [place] [address] | | | LAB-MICRO | | | [...] + + + | [facility] | [address] | [place] [address] | | | LAB-MICRO | | | [...] + + + + + | [facility] | [address] | [place] [address] | | | LAB-MICRO | | | [...] Lab) | | | | | | [facility] | | | | | | [address] | | | [address] | | | | | | [place] [address] | | | | + + + + + + + + | Specimen | + + | | + + + + + + + | Performing | Address | City/State/Zipcode | Phone Number | | Organization | | | | + + + + + | [facility] | [address] | [place] [address] | | | LAB-MICRO | | | [...] + + + | [facility] | [address] | [place] [address] | | | LAB-MICRO | | | [...] RLB | | | | | | ([address] Lab) | | | | | | [facility] | | | | | | [address] | | | | | | [address] | | | | | | [place] [address] | | | | + + + + + + + + | Specimen | + + | | + + + + + + + | Performing | Address | City/State/Zipcode | Phone Number | | Organization | | | | + + + + + | [facility] | [address] | [place] [address] | | | LAB-MICRO | | | [...] + + + | [facility] | [address] | [place] [address] | | | LAB-MICRO | | | [...] Molly | | | | | | [address] | | | | | | [place], | | | | | | [place] [address] | | | | + + + + + + + + | Specimen | + + | | + + + + + + + | Performing | Address | City/State/Zipcode | Phone Number | | Organization | | | | + + + + + | [facility] | [address] | [place] [address] | | | LAB-MICRO | | | [...] | + + + + + | [facility] | [address] | [place] [address] | | | LAB-MICRO | | | [...] | [facility] DEPARTMENT | [address] | [place] [address] | | | PATHOLOGY | [address] [...] | + + + + + | [facility] | [address] | [place] [address] | | | PATHOLOGY | [address] [...] effective 02/15/09 | [facility] | | RLB ([address] [facility]) [facility] | [facility]IONAL | | [place] [place] [address] [facility] | LABORATORY | | [place] [address] | | + + + + + + + + | Performing | Address | City/State/Zipcode | Phone Number | | Organization | | | | + + + + + | [facility] | [address] | [place] [address] | | | LABORATORY | | | [...] At | + + + | RLB ([address] [facility]) | [facility] | | [facility] [address] [facility] | REGIONAL | | [place] [address] | LABORATORY | + + + + + + + + | Performing | Address | City/State/Zipcode | Phone Number | | Organization | | | | + + + + + | [facility] | [address] | [place] [address] | | | LABORATORY | | | [...] [facility] | [address] | [place], [place] | | | THERAPY | [address] | [address] | | + + + + + OPERATION RECORD (10/16/2010 12:00 AM PST) + + + | Narrative | Performed At | + + + | [id number] | | | [id number] CHAD | | | [place] [id number] Date: | | | 10/16/2010 Attending Surgeon: | | | Kalyan Arias M.D. Medical Records Field Technician(s): | | | Raymond Valdes M.D. Preoperative [...] She presented as an ED transfer to [facility] approximately 3 days | | | prior [...] | multimodal DVT prophylaxis. Kalyan Arias M.D. [facility] / | | | [id number] / [id number] / [id number] / | | | | | + + + + + | Procedure Note | + + | Kalyan Arias MD - 10/17/2010 9:21 AM [facility] [id number] | | 01/ [id number] [facility] C | | [id number] Date: 10/16/2010 Attending Surgeon: Kalyan | | Ortiz Arias M.D. Medical Records Field Technician(s): Raymond Valdes M.D. Preoperative | | Diagnosis(es):1. [...] who is almost 3 years out from [facility] total hip arthroplasty. She had a | [...] She presented as an ED transfer to [facility] approximately 3 | | days priorto the [...] | will receivemultimodal DVT prophylaxis. Kalyan Arias M.D.[facility] / [id number] / [id number] | | / [id number] / T: 10/16/2010 | |minimally symptomatic for her, and she did well with the arthroplasty | |itself. She presented as an ED transfer to [facility] approximately 3 days prior | |to the [...] | | | |Kalyan Arias M.D. | |[facility] / | |[id number] / [id number] / [id number] / | | | | | | [...] [facility] | [address] | [place], [place] | | | [facility] | [facility] | [address] | | | TESTS | | | [...] [facility] DE[facility] | [address] | [place] [address] | | | PATHOLOGY | [address] [...] + + + + | PRODUCT | [id number] | | [facility] | | | UNIT [...] + + + + | BLOOD | [id number] | | [facility] | | | PRODUCT [...] DEPARTMENT OF | [address] | [place] [address] | | | PATHOLOGY | [address] [...] + + + + | PRODUCT | [id number] | | [facility] | | | UNIT [...] + + + + | BLOOD | 37578 | | [facility] | | | PRODUCT [...] | + + + + + | [facility] | [address] | [place] [address] | | | PATHOLOGY | [address] [...] + | Performing | Address | City/State/[facility] | Phone Number | | Organization | | | | + + + + + | [facility] | [address] | [place], [place] | | | [facility] | [address] | [address] | | | TESTS | | | [...] [facility] | [address] | [place], [place] | | | [facility] [place] | [facility] | [address] | | | TESTS | | | | + + + + + CAPILLARY BLOOD GLUCOSE, POC (10/14/2010 11:02 PM PST) + +---------+ + + + | Component | Value | Ref Range | Performed | Pathologist | | | | | At | Signature | + +---------+ + + + | BLOOD | 142 (H) | 60 - 99 mg/dL | [facility] - | | | GLUCOSE, | | [...] AHN | [address] | [place], [place] | | | [facility] PO[facility] CARE | [address] | [address] | | | TESTS | | | [...] [facility] | [address] | [place], [place] | | | THERAPY | [address] | [address] | | + + + + + [...] view image for the detailed interpretation from [employer] results. | CARDIOLOGY | + + + + + + + + | Performing | Address | City/State/Zipcode | Phone Number | | Organization | | | | + + + + + | [facility] | [address] | [place], [place] | | | CARDIOLOGY | [address] | [address] | | + + + + + [...] | + + + + + | [facility] | [address] | [place] [address] | | | LAB-MICRO | | | [...] DEPARTMENT OF | [address] | [place] [address] | | | PATHOLOGY | [address] [...] DEPARTMENT OF | [address] | [place] [address] | | | PATHOLOGY | [address] [...] | + + + + + | [facility] | [address] | [place] [address] | | | PATHOLOGY | [address] [...] Lab) | | | | | | [facility] | | | | | | [address] | | | [address] | | | | | | [place] [address] | | | | + + + + + + + + | Specimen | + + | | + + + + + + + | Performing | Address | City/State/Zipcode | Phone Number | | Organization | | | | + + + + + | [facility] | [address] | [place] [address] | | | LAB-MICRO | | | [...] | [facility] DE[facility] | [address] | [place] [address] | | | PATHOLOGY | [address] [...] DEPARTMENT OF | [address] | [place] [address] | | | PATHOLOGY | [address] [...] | + + + + + | [facility] | [address] | [place] [address] | | | PATHOLOGY | [address] [...] + + + | [facility] | [address] | [place] [address] | | | LAB-MICRO | | | [...] + + + | [facility] | [address] | [place] [address] | | | LAB-MICRO | | | [...] + +---------+ + + | [facility] DEPARTMENT OF | | | | | [...] + +---------+ + + | [facility] DEPARTMENT OF | | | | | [...] + + | [facility] | [address] | [place] [address] | | | PATHOLOGY | [address] [...] | + + + + + | [facility] | [address] | [place] [address] | | | PATHOLOGY | [address] [...] DEPARTMENT OF | [address] | [place] [address] | | | PATHOLOGY | [address] [...] + + + | [facility] | [address] | [place] [address] | | | LAB-MICRO | | | [...] | + + + + + | [facility] | [address] | [place] [address] | | | PATHOLOGY | [address] [...] DEPARTMENT OF | [address] | [place], [place] [address] | | | PATHOLOGY | [address] [...] DEPARTMENT OF | [address] | [place] [address] | | | PATHOLOGY | [address] [...] | + + + + + | [facility] | [address] | [place] [address] | | | PATHOLOGY | [address] [...] effective 10/26/08 | [facility] | | RLB ([facility] [facility]) [facility] | REGIONAL | | [place] [address] | LABORATORY | | [place] [address] | | + + + + + + + + | Performing | Address | City/State/Zipcode | Phone Number | | Organization | | | | + + + + + | [facility] | [address] | [place] [address] | | | LABORATORY | | | [...]
--- OUTSIDE RECORDS SUMMARY | ~2020-05-01 | XMS | Encounter Summary ---
Demographics + + + | Address | [address] | | | [place] [address] | + + + | Home Phone [...] Team Providers + +------+ + | Care Linseed Oil Refiner Name | Role | Phone | + [...] | | | Osteoarthros | | [address] [facility] | | | | | is, | RICHARD | [address] [place] | | | | | unspecified | [facility] | [address] [place], | | | | | whether | [facility] [address] | [place] | | | | | generalized | [address] | [address] | | | | | or | [place], | Phone: | | | | | localized, | [place] [address] | [phone] | | | | | pelvic | Phone: | Fax: | | | | | region and | [phone] | [phone] | | | | | thigh | Fax: | | | | | | | [phone] | | +--------+--------+ + + + + [...] Terrence | | | | | | [place], [place] | | | | | | [address] | | | | | | [phone] | | | +--------+---------+ + + + [...] agree with the note. TYRONE COLBY MD [facility] [address] [place] [address] Mailcode: Pv[address] [place] [address] esfaye Saenz PA-C - 01/20/2009 [...] CRP pending. Offered to refer her to [facility] pain clinic if she would [...] DEPARTMENT OF | [address] | [place] [address] | | | PATHOLOGY | [address] | | | + + + + + | [facility] DEPARTMENT OF | [address] | [place] [address] | | | PATHOLOGY | [address] | | | + + + + + SEDIMENTATION RATE (01/20/2009 10:02 AM PDT) + +-------+ + + + | Component | Value | Ref Range | Performed | Pathologist | | | | | At | Signature | + +-------+ + + + | SEDIMENTATI | 16 | <21 mm/hr | [facility] | | | ON RATE | [...] | [facility] | [address] [facility] [address] [address] | [place] [address] | | | PATHOLOGY | [address] | | | + + + + + | [facility] | [facility] [address] [address] | [place] [address] | | | PATHOLOGY | [address] [...] Change effective 10/26/08 | | | [facility] ([facility] | | | [place] [address] | | | [place] [address] | | + + + + + + + + | Performing | Address | City/State/Zipcode | Phone Number | | Organization | | | | + + + + + | [facility] | [address] | [place] [address] | | | LABORATORY | | | | + + + + + documented in this encounter Visit Diagnoses + + | Diagnosis | + + | Hip pain Pain in joint, pelvic region and thigh | + + | Hip replacement Hip joint replacement by other means | + + documented in this encounter"
--- OUTSIDE RECORDS SUMMARY | ~2020-05-01 | XMS | Encounter Summary ---
Demographics + + + | Address | [address] | | | [place] [address] | + + + | Home Phone [...] Providers + +------+ + | Care Learning And Development Consultant Name | Role | Phone | + +------+ + | Jaimie Monreal MD | PCP | | + +------+ + Encounter Details +--------+ + + + + | Date | Type | Department | Care Team | Description | +--------+ + + + + | 07/08/ | [facility] | [facility] | Jasper Medrano, | Left hip pain | | 2019 | Encounter | [address] | | | | | [address] | [place] | | | | | [place], [place] | [address] | | | | | [address] | | | | | | [phone] | | | +--------+ + + + [...] [address] | | | | | | [address] | | | | | | | [...] | | subsidence. However this is a xtuqe-iu-fxrfb prosthesis. Did not | | | seem to be any significant ostial lysis around either of the | | | components. There is evidence in the femur of previously removed | | | hardware. 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 The left hip shows severe ljla-fh-kdpe | | | arthritis without any evidence [...]
--- OUTSIDE RECORDS SUMMARY | ~2020-05-01 | XMS | Encounter Summary ---
Demographics + + + | Address | [address] | | | [place] [address] | + + + | Home Phone [...] Team Providers + +------+ + | Care Hair Preparer Name | Role | Phone | + +------+ + | Marta Jenkins BRIDGES SUPERVISOR | PCP | | + +------+ + [...] | Jamie Mailcode: [address] [place], | | | | | [place], [place] | [place] [address] | | | | | [address] | | | | | | [phone] | | | +--------+ + + + [...] [facility] DEPARTMENT | [address] | [place] [address] | | | PATHOLOGY | [address] | | | + + + + + | [facility] DEPARTMENT OF | [address] | [place] [address] | | | PATHOLOGY | [address] [...] | [facility] | [address] | [place] [address] | | | PATHOLOGY | [address] | | | + + + + + | [facility] | [address] [place] [address] [address] | [place] [address] | | | PATHOLOGY | [address] [...] | [facility] DEPARTMENT OF | [address] | [place] [address] | | | PATHOLOGY | [address] | | | + + + + + | [facility] DEPARTMENT OF | [address] | [place] [address] | | | PATHOLOGY | [address] [...]
--- OUTSIDE RECORDS SUMMARY | ~2020-05-01 | XMS | Encounter Summary ---
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 She is able to ambulate [...] adduction which is not painful. X-rays show mtpaherm-cw-typwqc right hip DJD with joint space narrowing asymmetrically and large marginal osteocytes, most notably superiorly, posteriorly, as well as inferiorly and less so anteriorly. Right knee x-rays show mpbk-wi-xpfkfsde degenerative changes. No radiopaque loose bodies. AP, lateral, and oblique views of the lumbosacral spine show vewb-pb-ganlihwg facet arthrosis at L3-L4, L4-L5, and L5-S1, right greater than left. Disk spaces are well maintained. There is no spondylolisthesis or spondylolysis. ASSESSMENT: Cqdlhgkv-ot-otrupy hypotrophic osteoarthritis of the right hip; ednn-te-gsvhmkzl degenerative changes of the right knee; and pbbm-rs-grleeuxx, right greater than left, lumbar and lumbosacral [...] the right hip. Lloyd Garcia M.D. / [id number] / [id number] / [id number] / [id number] C: 06/12/2000 otilia cc: JILLIAN TODD M.D. PJuan JoseOJuan Jose [place], [place] [address]Gkpkqapwztpfem signed by Interface, Recovery Unit Operator In at 08/10/2006 3: 02 AM PSTdocumented in this encounter Plan of Treatment Not on filedocumented as of this encounter Visit Diagnoses Not on filedocumented in this encounter"
--- OUTSIDE RECORDS SUMMARY | ~2020-05-01 | XMS | Encounter Summary ---
Demographics + + + | Address | [address] | | | [place] [address] | + + + | Home Phone [...] Providers + +------+ + | Care Parking Assistant Name | Role | Phone | [...] | | | unspecified | | Rd [place], | | | | | whether | | [place] | | | | | generalized | | [address] | | | | | or | | Phone: | | | | | localized, | | [phone] | | | | | pelvic | | Fax: | | | | | region and | | [phone] | | | | | thigh Pain [...] | | | | Mailcode: [id number] | [place], [place] | internal joint | | | | [facility] | [address] | prosthesis (HCC) | | | | [place], [place] | [phone] | (Primary Dx) | | | | [address] | | | | | | [phone] | | | +--------+---------+ + + + [...] has been indic ated for [facility] in [place], but they want the ok from [place]. [...] prn f/u here as she lives near [place]. d ocumented in this encounter Plan of [...]
--- OUTSIDE RECORDS SUMMARY | ~2020-05-01 | XMS | Encounter Summary ---
Demographics + + + | Address | [address] | | | [place] [address] | + + + | Home Phone [...] Team Providers + +------+ + | Care Ammonia Refrigeration Worker Name | Role | Phone | [...] | | | | [place], [facility] Floor | | | | | | [place], [place] | | | | | | [address] | | | | | | [phone] | | | +--------+ + + + [...] X-RAY HIP 2 | Med Rec No: [id number] | | | | | VIEWS | Name: | | | | | RIGHT W/ | SHELBY GALDAMEZ C | | | | | PELVIS 1 | Birthday: 1960 | | | | | VIEW | Sex: F | | | | | | Alias:Patient Location: | | | | | | [id number]: Outpatient | | | | | | [...] # | | | | | | [id number]:PELVIS | | | | | | ONE [...]
--- OUTSIDE RECORDS SUMMARY | ~2020-05-01 | XMS | Encounter Summary ---
Demographics + + + | Address | [address] | | | [place] [address] | + + + | Home Phone [...] Team Providers + +------+ + | Care Mergers And Acquisitions Banker Name | Role | Phone | + [...] | | | | | osteoarthrit | [address] | [address] | | | | | is of left | [address] | Yasmany Gil | | | | | hip | Roxann Ayala | [facility] for | | | | | Procedures | [place], [place] | [facility] and | | | | | CONSULT TO | [address] | Healing, | | | | | BARIATRIC | Phone: | Building [address] | | | | | SURGERY | [phone] | [place], [place] | | | | | | Fax: | [address] | | | | | | [phone] | Phone: | | | | | | | | | | | | | | Fax: | | | | | | | [phone] | +--------+--------+ + + + + Reason [...] | | | | | | Rd [place], | | | | | | | [place] | | | | | | | [address] | | | | | | | Phone: | | | | | | | [phone] | | | | | | | Fax: | | | | | | | [phone] | +--------+--------+ + + + + Encounter Details +--------+---------+ + + + | Date | Type | Department | Care Team | Description | +--------+---------+ + + + | 10/02/ | Office | Orthopaedics | Royce Durand, | Primary | | 2019 | Visit | [facility] | [address] | osteoarthritis of | | | | for Health and | [address] | left hip (Primary | | | | Healing [address] | [facility] [place] | Dx); Left hip pain; | | | | [address] [facility] for | [address] | Smoking; Chronic | | | | Health and Healing, | [phone] | obstructive | | | | | | pulmonary disease, | | | | Floor [place], [place] | | unspecified COPD | | | | [address] | | type ([facility]); Class 3 | | | | [phone] | | severe obesity with | | [...] present | | | | | | ([facility]) | +--------+---------+ + + + [...] might be different fro m the original. [facility] DEPARTMENT OF ORTHOPAEDICS & REHABILITATION [...] W-FE,OTHER MIN (CENTRUM ORAL), Take by mouth. Lebo-3 Fatty Acids-Vitamin E (FISH OIL) 1,000 mg [...] The patient was offered a referral to [facility], for non-surgical and potentially surgical o [...] with this patient as record ed by Ernesot Santos. Royce Durand MD documented in this [...] |Preliminary: Yue Porter MD | |Dictation initiated: uYe Porter MD 10/02/2018 10:06 AM | + [...]
--- OUTSIDE RECORDS SUMMARY | ~2020-05-01 | XMS | Encounter Summary ---
Demographics + + + | Address | [address] | | | [place] [address] | + + + | Home Phone [...] Team Providers + +------+ + | [employer] Name | Role | Phone | + [...] | | | Mailcode: [id number] | [facility] [place] | | | | | [facility] | [address] | | | | | [place], [place] | [phone] | | | | | [address] | | | | | | [phone] | | | +--------+ + + + [...]
--- OUTSIDE RECORDS SUMMARY | ~2020-05-01 | XMS | Encounter Summary ---
Demographics + + + | Address | [address] | | | [place] [address] | + + + | Home Phone [...] Providers + +------+ + | Care Reliability Technician Name | Role | Phone | [...] | | + +---------+ + + | [facility] DEPARTMENT OF | | | | | RADIOLOGY | | | | + +---------+ + + documented in this encounter Visit Diagnoses Not on filedocumented in this encounter"
--- OUTSIDE RECORDS SUMMARY | ~2020-05-01 | XMS | Encounter Summary ---
Demographics + + + | Address | [address] | | | [place] [address] | + + + | Home Phone [...] Team Providers + +------+ + | Care Dinkey Mechanic Name | Role | Phone | [...] | | | | | [place], | | | | | | [place] [address] | | | +--------+ + + + [...]
--- OUTSIDE RECORDS SUMMARY | ~2020-05-01 | XMS | Encounter Summary ---
Demographics + + + | Address | [address] | | | [place] [address] | + + + | Home Phone [...] Team Providers + +------+ + | Care Conduit Installer Name | Role | Phone | + +------+ + | Marta Jenkins INVASIVE MANAGER | PCP | | + +------+ + Encounter Details +--------+ + + + + | Date | Type | Department | Care Team | Description | +--------+ + + + + | 06/11/ | Ancillary | Registration 3181 | Lloyd Garcia MD | | | 2005 | Registratio | TAR[facility] | | | | | n | Jamie Mailcode: [id number] | | | | | | [place], [place] | | | | | | [address] | | | | | | [phone] | | | +--------+ + + + [...]
--- OUTSIDE RECORDS SUMMARY | ~2020-05-01 | XMS | Encounter Summary ---
Demographics + + + | Address | [address] | | | [place] [address] | + + + | Home Phone [...] Team Providers + +------+ + | Care Dryer Operator Name | Role | Phone | [...] + + | 02/22/ | Office | [facility] | Ladarius Martínez PA | MAMADOU on CPAP (Primary | | 2016 | Visit | SLEEP DISORDER 401 | [address] | Dx) | | | | [address] [place] | [place] | | | | | [place] [address] | [address] | | | | | [phone] | | | +--------+---------+ + + + [...] mask obtained from: [facility] [place] Pressure: 9-16 cm Median: 12.2 cm 95%: [...] all". She understands that she has severe spool sander ea, but she often doesn't care about [...] Exam Assessment: Problem #1: OBSTRUCTIVE SLEEP APNEA (FPS48-U62.33) This is controlled with CPAP, but she has struggled with wearing her CPAP consistently. Jac jackson has a for a variety of reasons/excuses for not using CPAP. During a recent stay in the [facility] she was told that her oxygen [...] a prescription to [facility] [place] for a nocturnal pulse oxym etry study [...] [place] | | | | | | [address] | | | | | | | | +--------+---------+ + + + documented as of this encounter Visit Diagnoses + + | Diagnosis | + + | MAMADOU on CPAP - Primary Obstructive sleep apnea (adult) (pediatric) | + + documented in this encounter
--- OUTSIDE RECORDS SUMMARY | ~2020-05-01 | XMS | Encounter Summary ---
Demographics + + + | Address | [address] | | | [place] [address] | + + + | Home Phone | | + + + | Preferred Language | Unknown | + + + | Marital Status | | + + + | Hoahaoism Affiliation | 1076 | + + + | Race | Unknown | + + + | Ethnic Group | Unknown | + + + Author + + + | Author | [facility] | | | and [place] | + + + | Organization | [facility] | | | [...] Team Providers + +------+ + | Care Vocal Music Teacher Name | Role | Phone | + +------+ + PCP | Unavailable | + +------+ + Encounter Details +--------+ + + + + | Date | Type | Department | Care Team | Description | +--------+ + + + + | 01/29/ | Hospital | [facility] | Helio Ahn | | | 2000 | Encounter | MED CTR SLEEP | MD Candie [address] | | | | | CENTER [address] | [address] [place] | | | | | [place] | [place] [address] | | | | | [address] | [phone] | | | | | [phone] | | | +--------+ + + + [...] [place] | | | | | | [address] | | | | | | | | +--------+---------+ + + + documented as of this encounter Visit Diagnoses Not on filedocumented in this encounter"
--- OUTSIDE RECORDS SUMMARY | ~2020-05-01 | XMS | Encounter Summary ---
Demographics + + + | Address | [address] | | | [place] [address] | + + + | Home Phone [...] Providers + +------+ + | Care Inspector Technician Name | Role | Phone | [...] [facility] DEPARTMENT | [address] [facility] | [place] [address] | | | PATHOLOGY | [address] | | | + + + + + | [facility] DEPARTMENT OF | [address] [facility] | [place] [address] | | | PATHOLOGY | [address] [...] DEPARTMENT OF | [address] | [place] [address] | | | PATHOLOGY | [address] | | | + + + + + | [place] DEPARTMENT OF | [address] | [place] [address] | | | PATHOLOGY | [address] [...] + + + + | [facility] | [address] [facility] | [place] [address] | | | PATHOLOGY | [address] | | | + + + + + | [facility] DEPARTMENT OF | [address] [facility] | [place] [address] | | | PATHOLOGY | [address] [...] + + + + | [facility] | [address] | [place] [address] | | | PATHOLOGY | [address] | | | + + + + + | [facility] | [address] | [place] [address] | | | PATHOLOGY | [address] | | | + + + + + documented in this encounter Visit Diagnoses Not on filedocumented in this encounter"
--- OUTSIDE RECORDS SUMMARY | ~2020-05-01 | XMS | Encounter Summary ---
Demographics + + + | Address | [address] | | | [place] [address] | + + + | Home Phone | | + + + | Preferred Language | Unknown | + + + | Marital Status | | + + + | Temple Affiliation | 1076 | + + + [...] Team Providers + +------+ + | Care Engine Room Operator Name | Role | Phone | [...] + + | 04/25/ | Office | [facility] | Ladarius Martínez PA | MAMADOU on CPAP (Primary | | 2016 | Visit | SLEEP DISORDER [address] | [address] | Dx) | | | | [address] [place] | [place] | | | | | [place] [address] | [address] | | | | | [phone] | | | +--------+---------+ + + + [...] mask obtained from: [facility] [place] Pressure: 9-16 cm Median: 11.6 cm 95%: [...] Exam Assessment: Problem #1: OBSTRUCTIVE SLEEP APNEA (QAU01-O94.33) This is controlled with CPAP, but she [...] months, sooner prn. Fifteen minutes were spent gavl-dr-odih, w ith the majority of time spent [...] [place] | | | | | | [id number] | | | | | | | | +--------+---------+ + + + documented as of this encounter Visit Diagnoses + + | Diagnosis | + + | MAMADOU on CPAP - Primary Obstructive sleep apnea (adult) (pediatric) | + + documented in this encounter"
--- OUTSIDE RECORDS SUMMARY | ~2020-05-01 | XMS | Encounter Summary ---
Demographics + + + | Address | [address] | | | [place] [address] | + + + | Home Phone [...] Team Providers + +------+ + | Care Bi Analyst Name | Role | Phone | [...] | | [address] | [place], | | | | | Mailcode: [id number] | [place] [address] | | | | | [facility] | | | | | | [place] | | | | | | [address] | | | | | | [phone] | | | +--------+ + + + [...] + + | Performing | Address | City/State/[facility] | Phone Number | | Organization | | | | + +---------+ + + | [facility] DEPARTMENT OF | [...] + +---------+ + + | [facility] DEPARTMENT | | | | | RADIOLOGY | | | | + +---------+ + + documented in this encounter Visit Diagnoses Not on filedocumented in this encounter"
--- OUTSIDE RECORDS SUMMARY | ~2020-05-01 | XMS | Encounter Summary ---
Demographics + + + | Address | [address] | | | [place] [address] | + + + | Home Phone [...] Team Providers + +------+ + | Care Blanchard Grinder Operator Name | Role | Phone | [...] | | | | Mailcode: [id number] | [place], [place] | | | | | [facility] | [address] | | | | | [facility] [place] | [phone] | | | | | [address] | | | | | | [phone] | | | +--------+ + + + [...]
--- OUTSIDE RECORDS SUMMARY | ~2020-05-01 | XMS | Encounter Summary ---
Demographics + + + | Address | [address] | | | [place] [address] | + + + | Home Phone [...] Providers + +------+ + | Care Stage Rigger Name | Role | Phone | [...] of this encounter Progress Notes Interface, Director Multimedia In - 04/28/2006 3:06 AM PDTCLINIC DATE: 09/24/2002 ORTHOPEDIC CLINIC SUBJECTIVE: A 42-year-old obese female follows for right hip endstage degenerative joint disease. She returns to clinic today stating that her hip is bothering her again. Her last injection was 6 months ago in February 2002. It lasted approximately 5 months. She continues with a therapy exercise program at [facility]. She takes Celebrex, multivitamin, and uses a [...] fluoroscopically-guided hip injections closer to home in [place], [place], and come here when she fails to respond to schedule her total hip replacement at that time. She seems to prefer to drive across the [place] for her care. Lloyd Garcia M.D. Operations And Maintenance Supervisor, Orthopedics and Rehabilitation / [id number] / [id number] / [id number] / [id number] cc: Ninfa Guillen M.D. [address] [place], [place] [address]Gelmcyscygrvsa signed by Interface, Director Multimedia In at 04/28/2006 3:0 6 AM PDTInterface, Director Multimedia In - 04/28/2006 3:06 AM PDTCLINIC DATE: [...] have to return all the way to [facility] from [place], [place]. Shruti Manjarrez MD AM / [id number] / [id number] / [id number] / [id number] cc: Ninfa Guillen M.D. [address] [place], [place] [address]Elwtkxrdklahui signed by Interface, Director Multimedia In at 04/28/2006 3:0 6 AM PDTdocumented in this encounter Plan of Treatment Not on filedocumented as of this encounter Visit Diagnoses Not on filedocumented in this encounter"
--- OUTSIDE RECORDS SUMMARY | ~2020-05-01 | XMS | Encounter Summary ---
Demographics + + + | Address | [address] | | | [place] [address] | + + + | Home Phone [...] Team Providers + +------+ + | Care Sparmaker Name | Role | Phone | + +------+ + PCP | Unavailable | + +------+ + Encounter Details +--------+ + + + + | Date | Type | Department | Care Team | Description | +--------+ + + + + | 07/27/ | Prism Measurer | Orthopaedics at | Tesfaye Saenz | Osteoarthritis of | | 2007 | | [facility] [address] | MEGNA Evangelista | Hip; Hip Pain | | | | [address] | | | | | | Mailcode: PV430 | | | | | | [facility] | | | | | | [place], [place] | | | | | | [address] | | | | | | [phone] | | | +--------+ + + + [...]
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
--- OUTSIDE RECORDS SUMMARY | ~2020-05-01 | XMS | Encounter Summary ---
Demographics + + + | Address | [address] | | | [place] [address] | + + + | Home Phone [...] Providers + +------+ + | Care Sustainable Agriculture Faculty Name | Role | Phone | + [...] as of this encounter Progress Notes Interface, Fitter Up In - 08/03/2006 5:18 AM PSTCLINIC DATE: [...] hip at that time. Lloyd Garcia M.D. Hub Cutter of Orthopedics and Rehabilitation / [id number] / [id number] / [id number] / [id number] cc: Helio Noland M.D. P.OJuan Jose Ko Olina CC [address] [place], [place] [address]Gdzwhwgheoukpy signed by Interface, Fitter Up In at 08/03/2006 5: 18 AM PSTdocumented in this encounter Plan of Treatment Not on filedocumented as of this encounter Visit Diagnoses Not on filedocumented in this encounter"
--- OUTSIDE RECORDS SUMMARY | ~2020-05-01 | XMS | Encounter Summary ---
Demographics + + + | Address | [address] | | | [place] [address] | + + + | Home Phone [...] Providers + +------+ + | Care Distribution Specialist Name | Role | Phone [...] | | | unspecified | | Rd [place], | | | | | whether | | [place] | | | | | generalized | | [address] | | | | | or | | Phone: | | | | | localized, | | [phone] | | | | | pelvic | | Fax: | | | | | region and | | [phone] | | | | | thigh Pain [...] | | | | Mailcode: PV430 | [place], [place] | inflammatory | | | | [facility] | [address] | reaction due to | | | | [place], [place] | [phone] | internal joint | | | | [address] | | prosthesis ([facility]); | | | | [phone] | | EE-NO SHOW | +--------+---------+ + [...]
--- OUTSIDE RECORDS SUMMARY | ~2020-05-01 | XMS | Encounter Summary ---
Demographics + + + | Address | [address] | | | [place] [address] | + + + | Home Phone [...] Team Providers + +------+ + | Care Airplane Pilot Supervisor Name | Role | Phone | + +------+ + PCP | Unavailable | + +------+ + Encounter Details +--------+ + + + + | Date | Type | Department | Care Team | Description | +--------+ + + + + | 09/14/ | Results | | Other, Faculty | | | 2002 | Only | | [phone] | | +--------+ + + + + [...] + | Ordered by JEFERSON CRONIN, . [id number] Patient unavailable, | | | specimen not obtained | | + + + + + + + + | Performing | Address | City/State/Zipcode | Phone Number | | Organization | | | | + + + + + | [facility] | [address] | [place] [address] | | | LABORATORY | | | [...] + | Ordered by JEFERSON CRONIN JR. [id number] Patient unavailable, | [facility] | | specimen not obtained | DEPARTMENT OF | | | PATHOLOGY | + + + + + + + + | Performing | Address | City/State/Zipcode | Phone Number | | Organization | | | | + + + + + | [facility] DEPARTMENT | [address] [facility] | [place] [address] | | | PATHOLOGY | [address] | | | + + + + + | [facility] | [address] [facility] | [place] [address] | | | PATHOLOGY | [address] [...] + | Ordered by JEFERSON CRONIN JR. [id number] Staff or dialysis draw | [facility] | | required. | DEPARTMENT OF | | | PATHOLOGY | + + + + + + + + | Performing | Address | City/State/Zipcode | Phone Number | | Organization | | | | + + + + + | [facility] DEPARTMENT OF | [address] | [place] [address] | | | PATHOLOGY | [address] | | | + + + + + | [facility] DEPARTMENT OF | [address] | [place] [address] | | | PATHOLOGY | [address] [...] DEPARTMENT OF | [address] | [place] [address] | | | PATHOLOGY | [address] | | | + + + + + | [facility] DEPARTMENT OF | [address] | [place] [address] | | | PATHOLOGY | [address] [...] | + + + + + | [facility] | [address] | [place] [address] | | | PATHOLOGY | [address] | | | + + + + + | [facility] DEPARTMENT OF | [address] | [place] [address] | | | PATHOLOGY | [address] | | | + + + + + documented in this encounter Visit Diagnoses Not on filedocumented in this encounter"
--- OUTSIDE RECORDS SUMMARY | ~2020-05-01 | XMS | Encounter Summary ---
Demographics + + + | Address | [address] | | | [place] [address] | + + + | Home Phone | | + + + | Preferred Language | Unknown | + + + | Marital Status | | + + + | Oriental Orthodox Affiliation | 1076 | + + + | Race | Unknown | + + + | Ethnic Group | Unknown | + + + Author + + + | Author | [facility] | | | and [place] | + + + | Organization | [facility] | | | and [...] Team Providers + +------+ + | Care Cut Out Worker Name | Role | Phone [...] + | 08/02/ | Office | [facility] | Ladarius Martínez PA | MAMADOU on CPAP (Primary | | 2013 | Visit | SLEEP DISORDER [address] | [address] | Dx) | | | | [address] [place] | [place], [place] | | | | | [place] [address] | [address] | | | | | [phone] | | | +--------+---------+ + + + [...] S9 obtained from: [facility] [place] Pressure: 9-16 cm 95%: 13.6 cm Maximum: [...] her equipment from [facility] [place] instead of [facility]. Review of Systems Objective: Physical [...] months, sooner prn. Thirty minutes were spent wazd-ka-nfxd, wi th the majority of time spent in counseling. Ladarius Martínez PA-C cc: Dr. Barry documented in this enco unter Miscellaneous Notes Miscellaneous - [facility] - 08/02/2014 12:00 AM PST iscellaneous - [facility] - 08/02/2014 12:00 AM PSTEle ctronically [...] [place] | | | | | | [id number] | | | | | | | | +--------+---------+ + + + documented as of this encounter Visit Diagnoses + + | Diagnosis | + + | MAMADOU on CPAP - Primary Obstructive sleep apnea (adult) (pediatric) | + + documented in this encounter"
--- OUTSIDE RECORDS SUMMARY | ~2020-05-01 | XMS | Encounter Summary ---
Demographics + + + | Address | [address] | | | [place] [address] | + + + | Home Phone [...] Providers + +------+ + | Care Blade Groover Name | Role | Phone | + [...] | Diseases at [facility] | MEGAN Reddy [address] | | | | | [address] | [address] | | | | | Loop Physician's | [place], [place] | | | | | [place], 3rd floor | [address] | | | | | [place], [place] | [phone] | | | | | [address] | | | | | | [phone] | | | +--------+ + + + [...]
--- OUTSIDE RECORDS SUMMARY | ~2020-05-01 | XMS | Encounter Summary ---
Demographics + + + | Address | [address] | | | [place] [address] | + + + | Home Phone [...] Team Providers + +------+ + | Care Sound Recording Technician Name | Role | Phone | [...] [facility] | | | | | | [address] | | | | | | Loop [facility] | | | | | | [place], [address] Floor | | | | | | [place], [place] | | | | | | [address] | | | | | | [phone] | | | +--------+ + + + [...]
--- OUTSIDE RECORDS SUMMARY | ~2020-05-01 | XMS | Encounter Summary ---
Demographics + + + | Address | [address] | | | [place] [address] | + + + | Home Phone [...] Team Providers + +------+ + | Care Auto Heater Mechanic Name | Role | Phone | + +------+ + PCP | Unavailable | + +------+ + Encounter Details +--------+ + + + + | Date | Type | Department | Care Team | Description | +--------+ + + + + | 11/22/ | Results | | Other, Faculty | | | 2003 | Only | | [phone] | | +--------+ + + + + [...] + + + | [facility] | [address] | [place] [address] | | | LAB-MICRO | | | [...] + + + | [facility] | [address] | [place] [address] | | | LAB-MICRO | | | [...] | + + + + + | [facility] | [address] | [place] [address] | | | LAB-MICRO | | | [...] | + + + + + | [facility] | [address] | [place] [address] | | | LAB-MICRO | | | [...] | + + + + + | [facility] | [address] | [place] [address] | | | LAB-MICRO | | | [...] | + + + + + | [facility] | [address] | [place] [address] | | | LAB-MICRO | | | [...] + + + | [facility] | [address] | [place] [address] | | | LAB-MICRO | | | | + + + + + documented in this encounter Visit Diagnoses Not on filedocumented in this encounter"
--- OUTSIDE RECORDS SUMMARY | ~2020-05-01 | XMS | Encounter Summary ---
Demographics + + + | Address | [address] | | | [place] [address] | + + + | Home Phone [...] Team Providers + +------+ + | Care Buckle Attaching Machine Operator Name | Role | Phone [...] as of this encounter Progress Notes Interface, Reagent Tender In - 04/15/2006 1:11 AM PDTCLINIC DATE: [...] age and her obesity. Lloyd Garcia M.D. Business Office Technician of Orthopedics and Rehabilitation / [id number] / [id number] / [id number] / cc: Rinaldi M.D. [address] [place], [place] [id number] signed by Interface, Reagent Tender In at 04/15/2006 1:1 1 AM PDTInterface, Reagent Tender In - 04/15/2006 1:11 AM PDTCLINIC DATE: [...] her injection. MD Lloyd Merritt M.D. / [id number] / [id number] / [id number] / Tdocumented in this encounter Plan of Treatment Not on filedocumented as of this encounter Visit Diagnoses Not on filedocumented in this encounter"
--- OUTSIDE RECORDS SUMMARY | ~2020-05-01 | XMS | Encounter Summary ---
Demographics + + + | Address | [address] | | | [place] [address] | + + + | Home Phone [...] Team Providers + +------+ + | Care Crown Pouncer Name | Role | Phone | + [...] | | | | Mailcode: PV430 | [place], [place] | | | | | [facility] | [address] | | | | | [place], [place] | [phone] | | | | | [address] | | | | | | [phone] | | | +--------+ + + + [...]
--- OUTSIDE RECORDS SUMMARY | ~2020-05-01 | XMS | Encounter Summary ---
Demographics + + + | Address | [address] | | | [place] [address] | + + + | Home Phone [...] Providers + +------+ + | Care Axle And Frame Mechanic Name | Role | Phone | + +------+ + | Marta Jenkins VENEER JOINTER HELPER | PCP | | + +------+ [...] | Jamie Mailcode: [address] [place], | | | | | [place], [place] | [place] [address] | | | | | [address] | | | | | | [phone] | | | +--------+ + + + [...]
--- OUTSIDE RECORDS SUMMARY | ~2020-05-01 | XMS | Encounter Summary ---
Demographics + + + | Address | [address] | | | [place] [address] | + + + | Home Phone [...] Team Providers + +------+ + | Care Assembler Watch Train Name | Role | Phone | + [...] + | 01/31/ | Office | [facility] | Ladarius Martínez PA | MAMADOU on CPAP (Primary | | 2015 | Visit | SLEEP DISORDER [address] | [address] | Dx) | | | | [address] [place] | [place], [place] | | | | | [place] [address] | [address] | | | | | [phone] | | | +--------+---------+ + + + [...] S9 with nasal mask obtained from: In [facility] in [place] Pressure: 9-16 cm Median: 11.5 cm 95%: [...] interested in getting her equipment from [facility] in [place] instead of In [facility]. Review of Systems Objective: Physical Exam Assessment: [...] year, sooner prn. Fifteen minutes were spent [id number], wit h the majority of time spent [...] RODRIGUEZ | | | | | | [id number] | | | | | | | | +--------+---------+ + + + documented as of this encounter Visit Diagnoses + + | Diagnosis | + + | MAMADOU on CPAP - Primary Obstructive sleep apnea (adult) (pediatric) | + + documented in this encounter"
--- OUTSIDE RECORDS SUMMARY | ~2020-05-01 | XMS | Encounter Summary ---
Demographics + + + | Address | [address] | | | [place] [address] | + + + | Home Phone [...] Providers + +------+ + | Care Rock Contractor Name | Role | Phone | [...] | | | | Mailcode: PV430 | [place], [place] | | | | | [facility] | [address] | | | | | [place], [place] | [phone] | | | | | [address] | | | | | | [phone] | | | +--------+ + + + [...]
--- OUTSIDE RECORDS SUMMARY | ~2020-05-01 | XMS | Encounter Summary ---
Demographics + + + | Address | [address] | | | [place] [address] | + + + | Home Phone [...] Team Providers + +------+ + | Care Radiographer Cardiac Catheterization Name | Role | Phone | + [...] as of this encounter Progress Notes Interface, Travel Money Advisor In - 06/19/2006 1:01 AM PDT [place] [facility] and [place] [address], [place] [address] FAX Department of Orthopaedics, [facility] [id number] October 15, 2001 Lloyd Garcia M.D. Department of Orthopedics and Rehabilitation/[facility] PV-430 RE: SHELBY GALDAMEZ MR #: [id number] DOS: 10/15/[address] Desai: Thank you [...] Sincerely, Kalyan Wu M.D. TE / HS [id number] / [id number] / [id number] / [id number] cc: Chan Krishna M.D. Department of Orthopedics and Rehabilitation/[facility] OP-31 Helio Noland M.D. [address] [place], [place] [address]Uyedspujartrvk signed by Interface, Travel Money Advisor In at 06/19/2006 1: 01 AM PDTdocumented in this encounter Plan of Treatment Not on filedocumented as of this encounter Visit Diagnoses Not on filedocumented in this encounter"
--- OUTSIDE RECORDS SUMMARY | ~2020-05-01 | XMS | Encounter Summary ---
Demographics + + + | Address | [address] | | | [place] [address] | + + + | Home Phone [...] Providers + +------+ + | Care Vegetable Cook Name | Role | Phone | [...] Pavilion | | | | | | [place], [place] | | | | | | [address] | | | | | | [phone] | | | +--------+ + + + [...] | + + + + + | [facility] | [address] | [place] [address] | | | LABORATORY | | | [...] | + + + + + | [facility] DEPARTMENT OF | [address] [facility] | [place] [address] | | | PATHOLOGY | [address] | | | + + + + + | [facility] DEPARTMENT OF | [address] [facility] | [place] [address] | | | PATHOLOGY | [address] [...] | + + + + + | [facility] OF | [address] | [place] [address] | | | PATHOLOGY | [address] | | | + + + + + | [facility] OF | [facility] [address] | [place] [address] | | | PATHOLOGY | [address] [...] DEPARTMENT OF | [address] | [place] [address] | | | PATHOLOGY | [address] | | | + + + + + | [facility] | [address] | [place] [address] | | | PATHOLOGY | [address] [...] Marybeth, | | | | | | Cellular Plastics Cutter, | | | | | | attime [...] + + + + + | [facility] | [address] | [place] [address] | | | LABORATORY | | | [...] | + + + + + | [facility] DEPARTMENT OF | [address] | [place] [address] | | | PATHOLOGY | [address] | | | + + + + + | [facility] DEPARTMENT OF | [address] | [place] [address] | | | PATHOLOGY | [address] [...] | + + + + + | [facility] DEPARTMENT OF | [address] [facility] | [place] [address] | | | PATHOLOGY | [address] | | | + + + + + | [place] DEPARTMENT OF | [address] [facility] | [place] [address] | | | PATHOLOGY | [address] [...] | + + + + + | [facility] DEPARTMENT OF | [address] [facility] | [place] [address] | | | PATHOLOGY | [address] | | | + + + + + | [facility] DEPARTMENT OF | [address] [facility] | [place] [address] | | | PATHOLOGY | [address] [...] | + + + + + | [facility] | [address] | [place] [address] | | | LABORATORY | | | [...] [facility] | [address] | [place] [address] | | | PATHOLOGY | [address] | | | + + + + + | [facility] | [address] [address] | [place] [address] | | | PATHOLOGY | [address] [...] | + + + + + | [facility] DEPARTMENT OF | [address] | [place] [address] | | | PATHOLOGY | [address] | | | + + + + + | [facility] DEPARTMENT OF | [address] | [place] [address] | | | PATHOLOGY | [address] [...] [facility] | [address] [facility] | [place] [address] | | | PATHOLOGY | [address] | | | + + + + + | [facility] DEPARTMENT OF | [facility] | [place] [address] | | | PATHOLOGY | [address] [...] + + + | [facility] | [address] | [place] [address] | | | LABORATORY | | | [...] [facility] | [address] [facility] | [place] [address] | | | PATHOLOGY | [address] | | | + + + + + | [facility] DEPARTMENT OF | [address] [facility] | [place] [address] | | | PATHOLOGY | [address] [...] + + | [facility] DEPARTMENT OF | [address] | [place] [address] | | | PATHOLOGY | [address] | | | + + + + + | [facility] | [address] | [place] [address] | | | PATHOLOGY | [address] [...] PRIMARY | | | | | | TECHNOLOGY ADOPTION MANAGER: Joao Wilde | | | | [...] | | | | | aspirated. A12 Khmer | | | | | | multi [...] + + + | [facility] | [address] | [place] [address] | | | LABORATORY | | | [...] | + + + + + | [facility] DEPARTMENT OF | [address] | [place] [address] | | | PATHOLOGY | [address] | | | + + + + + | [facility] DEPARTMENT OF | [address] | [place] [address] | | | PATHOLOGY | [address] [...] (L) | 7.4 - 10.4 fL | [facility] | | | | | | DEPARTMENT [...] | + + + + + | [facility] DEPARTMENT OF | [address] [facility] | [place] [address] | | | PATHOLOGY | [address] | | | + + + + + | [facility] DEPARTMENT OF | [address] [facility] | [place] [address] | | | PATHOLOGY | [address] [...] | + + + + + | [facility] DEPARTMENT OF | [address] | [place] [address] | | | PATHOLOGY | [address] | | | + + + + + | [facility] DEPARTMENT OF | [address] | [place] [address] | | | PATHOLOGY | [address] [...] | [facility] | [facility] | [place] [address] | | | PATHOLOGY | [address] | | | + + + + + | [facility] DEPARTMENT OF | [address] [facility] | [place] [address] | | | PATHOLOGY | [address] [...] [facility] | [address] [facility] | [place] [address] | | | PATHOLOGY | [address] | | | + + + + + | [facility] | [address] [facility] | [place] [address] | | | PATHOLOGY | [address] [...] DEPARTMENT OF | [address] | [place] [address] | | | PATHOLOGY | [address] | | | + + + + + | [facility] DEPARTMENT OF | [address] | [place] [address] | | | PATHOLOGY | [address] [...] | + + + + + | [facility] | [address] | [place] [address] | | | PATHOLOGY | [address] | | | + + + + + | [facility] | [address] | [place] [address] | | | PATHOLOGY | [address] [...] + + + | [facility] | [address] | [place] [address] | | | LABORATORY | | | | + + + + + documented in this encounter Visit Diagnoses Not on filedocumented in this encounter"
--- OUTSIDE RECORDS SUMMARY | ~2020-05-01 | XMS | Encounter Summary ---
Demographics + + + | Address | [address] | | | [place] [address] | + + + | Home Phone [...] Team Providers + +------+ + | Care Spray Gunner Name | Role | Phone | + [...] | | | unspecified | | Rd [place], | | | | | whether | | [place] | | | | | generalized | | [address] | | | | | or | | Phone: | | | | | localized, | | [phone] | | | | | pelvic | | Fax: | | | | | region and | | [phone] | | | | | thigh | [...] | | | [address] | [address] | Pain | | | | Mailcode: PV430 | [place], [place] | | | | | [facility] | [address] | | | | | [place], [place] | [phone] | | | | | [address] | | | | | | [phone] | | | +--------+---------+ + + + [...]
--- OUTSIDE RECORDS SUMMARY | ~2020-05-01 | XMS | Encounter Summary ---
Demographics + + + | Address | [address] | | | [place] [address] | + + + | Home Phone [...] Team Providers + +------+ + | Care Dyer Helper Name | Role | Phone | [...] as of this encounter Progress Notes Interface, Head Of Transport Logistics In - 07/28/2006 5:01 AM PSTCLINIC DATE: [...] from earlier surgical intervention. Lloyd Garcia M.D. [facility] / [id number] / [id number] / [id number] / cc: Helio Noland M.D. [address] [place], [place] [address]Ovzvzoaijjlgdi signed by Interface, Head Of Transport Logistics In at 07/28/2006 5: 01 AM PSTInterface, Head Of Transport Logistics In - 07/28/2006 5:01 AM PSTCLINIC DATE: [...] weeks' time. Malcom Her M.D. / SALEEM [id number] / [id number] / [id number] / [id number] Tdocumented in this encounter Plan of Treatment Not on filedocumented as of this encounter Visit Diagnoses Not on filedocumented in this encounter"
--- OUTSIDE RECORDS SUMMARY | ~2020-05-01 | XMS | Encounter Summary ---
Demographics + + + | Address | [address] | | | [place] [address] | + + + | Home Phone [...] Providers + +------+ + | Care Financial Auditor Name | Role | Phone | [...] as of this encounter Progress Notes Interface, Trim Operator In - 08/31/2006 1:03 AM PSTCLINIC DATE: [...] more. PHYSICAL EXAMINATION: She ambulates with a mxcntwll-kq-mgwqvc right coxalgic gait leaning over the right [...] her primary care physician. Lloyd Garcia M.D. Spring Inspector, Orthopedics and Rehabilitation / [id number] / [id number] / [id number] / [id number] C: 10/23/1999 kavita cc: Helio Noland M.D. Counts include 234 beds at the [facility] [address] Benson Cooper M.D. [facility] Orthopedics Rehabilitation [address], [address] [place] documented in this encounter Plan of Treatment Not on filedocumented as of this encounter Visit Diagnoses Not on filedocumented in this encounter"
--- OUTSIDE RECORDS SUMMARY | ~2020-05-01 | XMS | Encounter Summary ---
Demographics + + + | Address | [address] | | | [place] [address] | + + + | Home Phone [...] + +------+ + | Care Document Management Specialist Name | Role | Phone | [...] | | [address] | [address] [place], | | | | | Mailcode: PV430 | [place] [address] | | | | | [facility] | | | | | | [place], [place] | | | | | | [address] | | | | | | [phone] | | | +--------+ + + + [...]
--- OUTSIDE RECORDS SUMMARY | ~2020-05-01 | XMS | Encounter Summary ---
Demographics + + + | Address | [address] | | | [place] [address] | + + + | Home Phone [...] Team Providers + +------+ + | Care Flying I Instructor Name | Role | Phone | [...] + + | 11/25/ | Office | [facility] | Xiang Sepulveda, | Chronic pain | | 2019 | Visit | [facility] | DO [address] | syndrome (Primary | | | | DOLOROLOGY [address] | [place] | Dx); Other chronic | | | | [address] | [address] | pain; DDD | | | | [place], [place] | | (degenerative disc | | | | [address] | | disease), lumbar; | | | | [phone] | | Decreased range of | | [...] not limited to phys ical therapy, career specialist, acupuncture, massage therapy, and nutritional health [...] Author Status Filed Medication Agreement Antonella Sprague, Manufacturing Engineer Active 11/25/2019 10:52 AM Pain Contract- Dr. Sepulveda 11/25/2019 PEG Pain screening tool (Pain, enjoyment, general activity) Total score: (Printable questionnaires in Peruvian ) Interpretation of Total Score: PEG scores are used to track changes over time. It should de crease after therapy has begun. Last 4 PEG Scores: No flowsheet data found. Opioid Risk Tool (ORT): Total Score Pulse: 104 Resp: 20 BP: 184/69 SpO2: 97 % (From Chronic Pain tab; printable questionnaires in Peruvian) Interpretation of Total Score: 0 to 3 [...] [facility] [place] [place] Review of Systems Constitutional: Positive [...] reviewed, listed controlled substances are consistent with [facility] prescriptions and patient reported use. Controlled [...] to physical therapy, massage therapy, acupuncture, career specialist, along with jabari mmended psychological counseling, either privately, or in group sessions offered by private care individuals, community services, or taoism organizations. Appropriate referrals were made at patient [...] are noted in men and women. Ma ky men will suffer erectile dysfunction with these [...] weeks. This document has been created using Booker Voice Recognition software and [employer]. The entry has been reviewed for content and accuracy, but there may still exist "sound alike" glove boarder word errors and/or unintended additions and deletions. [...] RODRIGUEZ | | | | | | [id number] | | | | | | | [...]
--- OUTSIDE RECORDS SUMMARY | ~2020-05-01 | XMS | Encounter Summary ---
Demographics + + + | Address | [address] | | | [place] [address] | + + + | Home Phone [...] + +------+ + | Care Director Of Occupational Therapy Name | Role | Phone | + [...] of this encounter Progress Notes Interface, Rn Birthing In - 04/28/2005 8:48 PM PDTClinic Date: [...] well but presented to the ER in [place] approximately a week and half ago with [...] up with her primary care doctor in [place] and return to clinic and see me on an as-needed basis only. Lloyd Garcia M.D. It Administrator, Orthopedics and Rehabilitation / [id number] / [id number] / [id number] / [id number] cc: Dr. Pearce [facility] [address] [place] [address] Rinaldi M.D. [address] [place] [address], [place] [address]Tyzzpsxrcgupim signed by Interface, Rn Birthing In at 04/28/2005 8:4 8 PM PDTdocumented in this encounter Plan of Treatment Not on filedocumented as of this encounter Visit Diagnoses Not on filedocumented in this encounter"
--- OUTSIDE RECORDS SUMMARY | ~2020-05-01 | XMS | Encounter Summary ---
Demographics + + + | Address | [address] | | | [place] [address] | + + + | Home Phone [...] Providers + +------+ + | Care Agriculture Worker Name | Role | Phone | + +------+ + | Marta Jenkins ASBESTOS SURVEYOR | PCP | | + +------+ + [...] [address] | | | | | [place], [place] | [place], [place] | | | | | [address] | [address] | | | | | [phone] | [phone] | | | | | | | [...]
--- OUTSIDE RECORDS SUMMARY | ~2020-05-01 | XMS | Encounter Summary ---
Demographics + + + | Address | [address] | | | [place] [address] | + + + | Home Phone [...] Providers + +------+ + | Care Reliability Engineer Name | Role | Phone | + +------+ + | Marta Jenkins FRONT DESK SPECIALIST | PCP | | + +------+ + Encounter Details +--------+ + + + + | Date | Type | Department | Care Team | Description | +--------+ + + + + | 11/19/ | Documentati | Digestive Health | Wanda López ACNP | | | 2019 | on | Center at [facility] [address] | [address] | | | | | [facility] | Roxann Ayala [facility] | | | | | [facility] and | [place] [address] | | | | | Healing, Building 2 | [phone] | | | | | [place], [place] | | | | | | [address] | | | | | | [phone] | | | +--------+ + + + [...]
--- OUTSIDE RECORDS SUMMARY | ~2020-05-01 | XMS | Encounter Summary ---
Demographics + + + | Address | [address] | | | [place] [address] | + + + | Home Phone [...] + +------+ + | Care Director Of Strategy & Mobile Name | Role | Phone | + [...] floor | | | | | | [place], [place] | | | | | | [address] | | | | | | [phone] | | | +--------+------+ + + + [...] + + | [facility] DEPARTMENT OF | [facility] | [place] [address] | | | PATHOLOGY | [address] | | | + + + + + | [facility] DEPARTMENT OF | [address] [facility] | [place] [address] | | | PATHOLOGY | [address] [...] | [address] | [place] [address] | | | PATHOLOGY | [address] | | | + + + + + | [facility] DEPARTMENT OF | [address] | [place] [address] | | | PATHOLOGY | [address] [...] | [facility] DEPARTMENT | [address] [facility] | [place] [address] | | | PATHOLOGY | [address] | | | + + + + + | [facility] DEPARTMENT | [address] [facility] | [place] [address] | | | PATHOLOGY | [address] [...] [facility] DE[facility] | [address] | [place] [address] | | | PATHOLOGY | [address] | | | + + + + + | [facility] DEPARTMENT OF | [address] | [place] [address] | | | PATHOLOGY | [address] [...] Lab) [facility] | | | [place] [address] | | | [place] [address] | | + + + + + + + + | Performing | Address | City/State/Zipcode | Phone Number | | Organization | | | | + + + + + | [facility] | [address] | [place] [address] | | | LABORATORY | | | | + + + + + documented in this encounter Visit Diagnoses + + | Diagnosis | + + | Hip pain Pain in joint, pelvic region and thigh | + + | Hip replacement Hip joint replacement by other means | + + documented in this encounter"
--- OUTSIDE RECORDS SUMMARY | ~2020-05-01 | XMS | Encounter Summary ---
Demographics + + + | Address | [address] | | | [place] [address] | + + + | Home Phone [...] Team Providers + +------+ + | Care Flame Hardening Machine Operator Name | Role | Phone | + +------+ + | Marta Jenkins SCRAP CRANE OPERATOR | PCP | | + +------+ + Encounter Details +--------+ + + + + | Date | Type | Department | Care Team | Description | +--------+ + + + + | 11/18/ | Abstract | Digestive Health | Clinic, Surgery | | | 2019 | | Center at [facility] [address] | | | | | | [address] [facility] | | | | | | for Health and | | | | | | Healing, Building 2 | | | | | | [place], [place] | | | | | | [address] | | | | | | [phone] | | | +--------+ + + + [...]
--- OUTSIDE RECORDS SUMMARY | ~2020-05-01 | XMS | Encounter Summary ---
Demographics + + + | Address | [address] | | | [place] [address] | + + + | Home Phone [...] Providers + +------+ + | Care Technical Account Representative Name | Role | Phone | + +------+ + | Yuki Pantoja MD | PCP | | + +------+ + Encounter Details +--------+ + + + + | Date | Type | Department | Care Team | Description | +--------+ + + + + | 06/21/ | Gold Plater | Orthopaedics at | Kalyan Colby MD | Osteoarthritis of | | 2008 | | [facility] [address] | [address] | Hip (Primary Dx) | | | | [address] | [address] | | | | | Mailcode: PV430 | [place], [place] | | | | | [facility] | [address] | | | | | [place], [place] | [phone] | | | | | [address] | | | | | | [phone] | | | +--------+ + + + [...] X-RAY HIP 2 | Med Rec No: [id number] | | | | | VIEWS | Name: | | | | | RIGHT W/ | SHELBY GALDAMEZ | | | | | PELVIS 1 | Birthday: 1960 | | | | | VIEW | Sex: F | | | | | | Alias:Patient Location: | | | | | | [id number]: Outpatient | | | | | | [...] # | | | | | | [id number]:PELVIS | | | | | | ONE [...]
--- OUTSIDE RECORDS SUMMARY | ~2020-05-01 | XMS | Encounter Summary ---
Demographics + + + | Address | [address] | | | [place] [address] | + + + | Home Phone [...] Team Providers + +------+ + | Care Etl Tester Name | Role | Phone | + +------+ + | Marta Jenkins FUR FEEDER | PCP | | + +------+ + [...] | Jamie Mailcode: [address] [place], | | | | | [place], [place] | [place] [address] | | | | | [address] | | | | | | [phone] | | | +--------+ + + + [...]
--- OUTSIDE RECORDS SUMMARY | ~2020-05-01 | XMS | Encounter Summary ---
Demographics + + + | Address | [address] | | | [place] [address] | + + + | Home Phone [...] Providers + +------+ + | Care Lighting Technician Name | Role | Phone | [...] of this encounter Progress Notes Interface, Rn Iv Therapy In - 08/31/2006 1:03 AM PSTCLINIC DATE: [...] more. PHYSICAL EXAMINATION: She ambulates with a anvvjriv-rj-srrcto right coxalgic gait leaning over the right [...] her primary care physician. Lloyd Garcia M.D. Sales And Leasing Agent, Orthopedics and Rehabilitation / [id number] / [id number] / [id number] / [id number] C: 10/23/1999 kavita cc: Helio Noland M.D. [facility] [address] Benson Cooper M.D. [facility] Orthopedics Rehabilitation [address], [address] [place] documented in this encounter Plan of Treatment Not on filedocumented as of this encounter Visit Diagnoses Not on filedocumented in this encounter"
--- OUTSIDE RECORDS SUMMARY | ~2020-05-01 | XMS | Encounter Summary ---
Demographics + + + | Address | [address] | | | [place] [address] | + + + | Home Phone [...] Team Providers + +------+ + | Care Gore Seamer Name | Role | Phone | + [...] as of this encounter Progress Notes Interface, Diamond Picker In - 07/14/2006 1:10 AM PDTCLINIC DATE: [...] in the system. Dariana Champion M.A. / [id number] / [id number] / [id number] / Watt Diamond Picker In - 07/10/2006 1:00 AM PDTCLINIC DATE: [...] insurance at and spoke with Timbo. This compliance representative dealer stated that this prescription had been prior [...] over the phone. Dariana Champion M.A. / [id number] / [id number] / [id number] / Tdocumented in this encounter Plan of Treatment Not on filedocumented as of this encounter Visit Diagnoses Not on filedocumented in this encounter"
--- OUTSIDE RECORDS SUMMARY | ~2020-05-01 | XMS | Encounter Summary ---
Demographics + + + | Address | [address] | | | [place] [address] | + + + | Home Phone [...] Providers + +------+ + | Care Field Liability Generalist Name | Role | Phone | + +------+ + | Marta Jenkins FILLING WINDER | PCP | | + +------+ + [...] | Jamie Mailcode: [address] [place], | | | | | [place], [place] | [place] [address] | | | | | [address] | | | | | | [phone] | | | +--------+ + + + [...]
--- OUTSIDE RECORDS SUMMARY | ~2020-05-01 | XMS | Encounter Summary ---
Demographics + + + | Address | [address] | | | [place] [address] | + + + | Home Phone [...] | + + + + + | Casanrda Smith | ROBERTO | [place] | | + + + + + Care Team Providers + +------+ + | Care Secy Name | Role | Phone | + [...] as of this encounter Progress Notes Interface, Bleaching Machine Operator In - 04/01/2006 3:12 AM [...] a total hip replacement. Lloyd Garcia M.D. Neurophysiology Tech, Orthopedics and Rehabilitation / [id number] / [id number] / [id number] / cc: Ninfa Guillen M.D. [address] [id number] signed by Interface, Bleaching Machine Operator In at 04/01/2006 3:1 2 AM PDTdocumented in this encounter Plan of Treatment Not on filedocumented as of this encounter Visit Diagnoses Not on filedocumented in this encounter"
--- OUTSIDE RECORDS SUMMARY | ~2020-05-01 | XMS | Encounter Summary ---
Demographics + + + | Address | [address] | | | [place] [address] | + + + | Home Phone [...] Providers + +------+ + | Care Assistant Pastry Chef Name | Role | Phone | [...] | | | | Mailcode: PV430 | [facility] [place] | | | | | [facility] | [address] | | | | | [place], [place] | [phone] | | | | | [address] | | | | | | [phone] | | | +--------+ + + + [...]
--- OUTSIDE RECORDS SUMMARY | ~2020-05-01 | XMS | Encounter Summary ---
Demographics + + + | Address | [address] | | | [place] [address] | + + + | Home Phone [...] Providers + +------+ + | Care Well Logging Captain Name | Role | [...] | | | | | or | [address] | Pavilion | | | | | localized, | | [place], [place] | | | | | pelvic | | [address] | | | | | region and | | Phone: | | | | | thigh | | [phone] | | | | | Intervertebr | | Fax: | | | | | al lumbar | | [phone] | | | | | disc | [...] | [facility] [address] | [address] [facility] | Hip (Primary Dx) | | | | [address] | [address] [place], | | | | | Mailcode: PV430 | [place] [address] | | | | | [facility] | | | | | | [place], [place] | | | | | | [address] | | | | | | [phone] | | | +--------+---------+ + + + [...]
--- OUTSIDE RECORDS SUMMARY | ~2020-05-01 | XMS | Encounter Summary ---
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 | without myelopathy | | | | [address] [place], [place] | [place] [address] | or radiculopathy; | | | | [address] | | Spondylosis of | | | | [phone] | | lumbar region | | | [...] 05/23/ | Office | Pain Medicine | Xinag Sepulveda, | | | 2019 | Visit | | [address] | | | | | | [place] | | | | | | [address] | | | | | | | [...]
--- OUTSIDE RECORDS SUMMARY | ~2020-05-01 | XMS | Encounter Summary ---
Demographics + + + | Address | [address] | | | [place] [address] | + + + | Home Phone [...] Providers + +------+ + | Care Diesel Locomotive Engineer Name | Role | Phone | [...] | | | | Mailcode: PV430 | [facility] [place] | (injection) | | | | [facility] | [address] | | | | | [facility] [place] | [phone] | | | | | [address] | | | | | | [phone] | | | +--------+ + + + [...]
--- OUTSIDE RECORDS SUMMARY | ~2020-05-01 | XMS | Encounter Summary ---
Demographics + + + | Address | [address] | | | [place] [address] | + + + | Home Phone [...] Team Providers + +------+ + | Care Evaluation Assistant Name | Role | Phone | + +------+ + | Marta Jenkins SYSTEM DESIGNER | PCP | | + +------+ [...] | Jamie Mailcode: [address] [place], | | | | | [place], [place] | [place] [address] | | | | | [address] | | | | | | [phone] | | | +--------+ + + + [...]
--- OUTSIDE RECORDS SUMMARY | ~2020-05-01 | XMS | Encounter Summary ---
Demographics + + + | Address | [address] | | | [place] [address] | + + + | Home Phone [...] Team Providers + +------+ + | Care Green End Department Supervisor Name | Role | Phone [...] of this encounter Progress Notes Interface, Aircraft Structural Design Engineer In - 2006 1:06 AM PDTCLINIC DATE: 06/24/2003 ORTHOPEDIC CLINIC HISTORY: This is a 43-year-old obese female followed for right hip degenerative joint disease, returns to clinic today having had no relief after her last 2 fluoroscopically guided cortisone injections on October 05, 2002, and January 26, 2003. The x-rays at that time revealed zmseganu-na-xxjtgkxm degenerative joint disease. I confirmed that the [...] She does continue to drive in from [place] for her care here. She continues to [...] times per day. PHYSICAL EXAMINATION GENERAL: A jfzavbrx-wz-zffacpsq obese short statured woman who ambulates with [...] authorization has been obtained. Lloyd Garcia M.D. [facility] / [id number] / [id number] / [id number] / cc: Ninfa Guillen M.D. [address] [place] [address] [id number] signed by Interface, Aircraft Structural Design Engineer In at 2006 1:06 AM [facility] umented in this encounter Plan of Treatment Not on filedocumented as of this encounter Visit Diagnoses Not on filedocumented in this encounter"
--- OUTSIDE RECORDS SUMMARY | ~2020-05-01 | XMS | Encounter Summary ---
Demographics + + + | Address | [address] | | | [place] [address] | + + + | Home Phone [...] Providers + +------+ + | Care Director Recreation Name | Role | Phone | + [...] of this encounter Progress Notes Interface, Financial Examiner In - 04/28/2005 10:57 PM PDTClinic Date: [...] longer any fluid pocket. Lloyd Garcia M.D. Design Supervisor, Orthopedics and Rehabilitation / [id number] / [id number] / [id number] / [id number] cc: Everett Ibrahim MD [address] [place], [place] [address]Gqznlirxypgqba signed by Interface, Financial Examiner In at 04/28/2005 10:57 PM PDTdocumented in this encounter Plan of Treatment Not on filedocumented as of this encounter Visit Diagnoses Not on filedocumented in this encounter"
--- OUTSIDE RECORDS SUMMARY | ~2020-05-01 | XMS | Encounter Summary ---
Demographics + + + | Address | [address] | | | [place] [address] | + + + | Home Phone [...] Providers + +------+ + | Care Lead Recreation Assistant Name | Role | Phone | [...] Pavilion | | | | | | [place], [place] | | | | | | [address] | | | | | | [phone] | | | +--------+ + + + [...]
--- OUTSIDE RECORDS SUMMARY | ~2020-05-01 | XMS | Encounter Summary ---
Demographics + + + | Address | [address] | | | [place] [address] | + + + | Home Phone [...] Providers + +------+ + | Care Personnel Quality Assurance Auditor Name | Role | Phone | [...] of this encounter Discharge Summaries Interface, Patient Svcs Mgr In 02/27/2006 3:05 AM PDTAdmission Date: 09/13/2003 [...] Benson Boone M.D. Lloyd Garcia M.D. RT:[id number] signed by Interface, Patient Svcs Mgr In at 02/27/2006 3:05 AM [facility]ed in this encounter Plan of Treatment Not on filedocumented as of this encounter Visit Diagnoses Not on filedocumented in this encounter"
--- OUTSIDE RECORDS SUMMARY | ~2020-05-01 | XMS | Encounter Summary ---
Demographics + + + | Address | [address] | | | [place] [address] | + + + | Home Phone | | + + + | Preferred Language | Unknown | + + + | Marital Status | | + + + | Pentecostal Affiliation | 1076 | + + + | Race | Unknown | + + + | Ethnic Group | Unknown | + + + Author + + + | Author | [facility] | | | and [place] | + + + | Organization | [facility] | | | [...] Team Providers + +------+ + | Care Branch Service Representative Name | Role | Phone | + +------+ + PCP | Unavailable | + +------+ + Encounter Details +--------+ + + + + | Date | Type | Department | Care Team | Description | +--------+ + + + + | 12/07/ | [facility] | [facility] | Helio Ahn | | | 2002 | Encounter | MED CTR SLEEP | MD Candie [address] | | | | | CENTER [address] | [address] | | | | | [place] | [place] [address] | | | | | [address] | [phone] | | | | | [phone] | | | +--------+ + + + [...] [place] | | | | | | [address] | | | | | | | | +--------+---------+ + + + documented as of this encounter Visit Diagnoses Not on filedocumented in this encounter"
--- OUTSIDE RECORDS SUMMARY | ~2020-05-01 | XMS | Encounter Summary ---
Demographics + + + | Address | [address] | | | [place] [address] | + + + | Home Phone [...] Providers + +------+ + | Care Hand Screen Printer Name | Role | Phone | [...] | | [address] | Roxann Ayala [place], | | | | | Mailcode: PV430 | [place] [address] | | | | | [facility] | | | | | | [place], [place] | | | | | | [address] | | | | | | [phone] | | | +--------+ + + + [...]
--- OUTSIDE RECORDS SUMMARY | ~2020-05-01 | XMS | Encounter Summary ---
Demographics + + + | Address | [address] | | | [place] [address] | + + + | Home Phone [...] Team Providers + +------+ + | Care Bread Dumper Name | Role | Phone | [...] [facility] | | | | | | [address] | | | | | | Loop [facility] | | | | | | [place], [address] Floor | | | | | | [place], [place] | | | | | | [address] | | | | | | [phone] | | | +--------+ + + + [...]
--- OUTSIDE RECORDS SUMMARY | ~2020-05-01 | XMS | Encounter Summary ---
Demographics + + + | Address | [address] | | | [place] [address] | + + + | Home Phone [...] Team Providers + +------+ + | Care Turntable Worker Name | Role | Phone | + +------+ + | No Pcp Per Patient | PCP | Unavailable | + +------+ + Encounter Details +--------+ + + + + | Date | Type | Department | Care Team | Description | +--------+ + + + + | 12/15/ | Administrative Project Coordinator | Orthopaedics at | Kalyan Arias MD | JUAN DAVID (Total Hip | | 2008 | | [facility] [address] | [address] | Arthroplasty) | | | | [address] | [address] | (Primary Dx) | | | | Mailcode: PV430 | [place], [place] | | | | | [facility] | [address] | | | | | [place], [place] | [phone] | | | | | [address] | | | | | | [phone] | | | +--------+ + + + [...] | + +---------+ + + | [facility]PARTMENT OF | | | | | [...]
--- OUTSIDE RECORDS SUMMARY | ~2020-05-01 | XMS | Encounter Summary ---
Demographics + + + | Address | [address] | | | [place] [address] | + + + | Home Phone [...] Providers + +------+ + | Care Instructional Aide Name | Role | Phone | + +------+ + | Travis Mcginnis MD | PCP | | + +------+ + Encounter Details +--------+ + + + + | Date | Type | Department | Care Team | Description | +--------+ + + + + | 11/09/ | Documentati | Vascular Access at | Lis Banuelos | | | 2010 | on | [facility] [address] | HERMINIO Swain [address] | | | | | [address] | [address] | | | | | [facility] | Rd [place], [place] | | | | | [place], [place] | [address] | | | | | [address] | | | | | | [phone] | | | +--------+ + + + [...]
--- OUTSIDE RECORDS SUMMARY | ~2020-05-01 | XMS | Encounter Summary ---
Demographics + + + | Address | [address] | | | [place] [address] | + + + | Home Phone [...] Providers + +------+ + | Care Case Management Coordinator Name | Role | Phone [...]
--- OUTSIDE RECORDS SUMMARY | ~2020-05-01 | XMS | Encounter Summary ---
Demographics + + + | Address | [address] | | | [place] [address] | + + + | Home Phone [...] Team Providers + +------+ + | Care University Tutor Name | Role | Phone | + [...] | | [address] | [address] Ayala [place], | | | | | Mailcode: PV430 | [place] [address] | | | | | [facility] | | | | | | [place] | | | | | | [address] | | | | | | [phone] | | | +--------+ + + + [...] | | | | ARTHRO WO | Raegna HERRERA | | | | | ANESTHESIA [...] + | Performing | Address | City/State/[facility] | Phone Number | | [...] + | [facility] DEPARTMENT | | | | | RADIOLOGY | | | | + +---------+ + + documented in this encounter Visit Diagnoses Not on filedocumented in this encounter"
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
--- OUTSIDE RECORDS SUMMARY | ~2020-05-01 | XMS | Encounter Summary ---
Demographics + + + | Address | [address] | | | [place] [address] | + + + | Home Phone [...] Providers + +------+ + | Care Supervisor Small Appliance Assembly Name | Role | Phone | + [...] | Diseases at [facility] | MEGAN Reddy [address] | | | | | [address] | [address] | | | | | Loop Physician's | [place], [place] | | | | | [place], 3rd floor | [address] | | | | | [place], [place] | [phone] | | | | | [address] | | | | | | [phone] | | | +--------+ + + + [...]
--- OUTSIDE RECORDS SUMMARY | ~2020-05-01 | XMS | Encounter Summary ---
Demographics + + + | Address | [address] | | | [place] [address] | + + + | Home Phone [...] Team Providers + +------+ + | Care Puffer Tender Name | Role | Phone | [...] [place] | | | | | | [place], [place] | | | | | | [address] | | | | | | [phone] | | | +--------+ + + + [...]
--- OUTSIDE RECORDS SUMMARY | ~2020-05-01 | XMS | Encounter Summary ---
Demographics + + + | Address | [address] | | | [place] [address] | + + + | Home Phone [...] Team Providers + +------+ + | Care Onsite Health Coach Name | Role | Phone | [...] | [facility] [address] | [address] | | | | | [address] | [address] | | | | | Mailcode: PV430 | [place], [place] | | | | | [facility] | [address] | | | | | [place], [place] | [phone] | | | | | [address] | | | | | | [phone] | | | +--------+ + + + [...]
--- OUTSIDE RECORDS SUMMARY | ~2020-05-01 | XMS | Encounter Summary ---
Demographics + + + | Address | [address] | | | [place] [address] | + + + | Home Phone [...] Team Providers + +------+ + | Care Breaking Machine Operator Name | Role | Phone [...] + + + + | 11/13/ | Warehouse Shipper | Infectious | Carolina Putnam | | | 2010 | | Diseases at [facility] | K, PA-C [address] | | | | | [address] | [facility] | | | | | Loop Physician's | [place], [place] | | | | | [place], 3rd floor | [address] | | | | | [place], [place] | [phone] | | | | | [address] | | | | | | [phone] | | | +--------+ + + + [...]
--- OUTSIDE RECORDS SUMMARY | ~2020-05-01 | XMS | Encounter Summary ---
Demographics + + + | Address | [address] | | | [place] [address] | + + + | Home Phone [...] Team Providers + +------+ + | Care Shrub Planter Name | Role | Phone | + +------+ + | Travis Mcginnis MD | PCP | | + +------+ + Encounter Details +--------+ + + + + | Date | Type | Department | Care Team | Description | +--------+ + + + + | 08/03/ | Hospital | Diagnostic Imaging | | | | 2009 | Encounter | Services at [facility] | | | | | | [address] | | | | | | [address] | | | | | | [facility] | | | | | | [place], [place] | | | | | | [address] | | | | | | [phone] | | | +--------+ + + + [...] + + + +---------+ + + | [place]-3 Fatty | Take by mouth. | | [...] of | | | | | | H2nrhwgfhq/superior | | | | | | corner, [...]
--- OUTSIDE RECORDS SUMMARY | ~2020-05-01 | XMS | Encounter Summary ---
Demographics + + + | Address | [address] | | | [place] [address] | + + + | Home Phone [...] Team Providers + +------+ + | Care Hotel Services Supervisor Name | Role | Phone | [...] as of this encounter Progress Notes Interface, Acct Exec In - 04/28/2005 6:17 PM PDTClinic Date: [...] is completed this weekend. Lloyd Garcia M.D. Counter Hop, Orthopedics and Rehabilitation / [id number] / [id number] / [id number] / 40792 cc: Ninfa Guillen M.D. [address] [place] [address], [place] [address]Ongylxcjjlscte signed by Interface, Acct Exec In at 04/28/2005 6:1 7 PM PDTdocumented in this encounter Plan of Treatment Not on filedocumented as of this encounter Visit Diagnoses Not on filedocumented in this encounter"
--- OUTSIDE RECORDS SUMMARY | ~2020-05-01 | XMS | Encounter Summary ---
Demographics + + + | Address | [address] | | | [place] [address] | + + + | Home Phone [...] Team Providers + +------+ + | Care Allergist/Immunologist Physician Name | Role | Phone | [...] | Transcriptions | + + | Interface, Information Assoc In - 03/06/2006 1:10 AM PDT Date: | | 08/16/2003Attending Surgeon: Lloyd Garcia M.D.Defect Repairer Glassware(s): | | Benson Boone M.D.Preoperative Diagnosis:Right hip [...] cc per Arreaga drain to | | 8-Libyan tubes to 1 median Hemovac suctioncanister.Postoperative Plan:Ancef [...] brought to | | OperatingRoom #6 at [facility] Operating Room suite.She | | was [...] Vicryl mattress sutures andaddition | | of mbnejb-wm-wzxli 0 Vicryl. The fascial layer with cjnibblsvuadqufmd-le-uhqhe 0 | | Vicryl sutures. Fadumo's fascia [...] to | | leaving the room.Lloyd Garcia M.D.Press Operator Apprentice, Orthopedics and | | Rehabilitation / [id number] / [id number] / [id number] / [id number]: 08/16/2003T: | | 08/16/2003cc:Ninfa Guillen M.D.[address] [place] [address] | | | |The posterior superior iliac [...] Vicryl mattress sutures and | |addition of ontoek-bm-pstpc 0 Vicryl. The fascial layer with interrupted | |gyeihl-ev-glfzw 0 Vicryl sutures. Fadumo's fascia was closed [...] | | | |Lloyd Garcia M.D. | |Press Operator Apprentice, Orthopedics and Rehabilitation | | | | / | |[id number] / [id number] / [id number] / [id number] | | | | | | | |cc: | | | |Ninfa Guillen M.D. | |[address], | |[place] [address] | + + documented in this encounter Visit Diagnoses Not on filedocumented in this encounter"
--- OUTSIDE RECORDS SUMMARY | ~2020-05-01 | XMS | Encounter Summary ---
Demographics + + + | Address | [address] | | | [place] [address] | + + + | Home Phone | | + + + | Preferred Language | Unknown | + + + | Marital Status | | + + + | Restoration Affiliation | 1076 | + + + [...] Providers + +------+ + | Care Occupational Ther Name | Role | Phone | + [...] + + | 07/29/ | Office | [facility] | Xiang Sepulveda, | ABDOMINAL | | 2019 | Visit | [facility] | DO [address] | PAIN-GENERALIZED | | | | DOLOROLOGY [address] | [facility] [place] | (Primary Dx); Other | | | | [address] | [address] | chronic pain; DDD | | | | [place], [place] | | (degenerative disc | | | | [address] | | disease), lumbar; | | | | [phone] | | Facet arthropathy, | | | [...] general activity) Total score: (Printable questionnaires in German ) Interpretation of Total Score: PEG scores are used to track changes over time. It should de crease after therapy has begun. Last 4 PEG Scores: No flowsheet data found. Opioid Risk Tool (ORT): Total Score Pulse: 96 BP: 184/84 SpO2: 99 % (From Chronic Pain tab; printable questionnaires in German) Interpretation of Total Score: 0 to 3 [...] ; Surg andrés: Rustam Schmid MD; Location: [facility] MAIN [place] Review of Systems [...] reviewed, listed controlled substances are consistent with [facility] prescriptions and patient reported use. Controlled [...] physical therapy, massage therapy, acupuncture, critical care physician assistant, along with jabari mmended psychological counseling, either privately, or in group sessions offered by private care individuals, community services, or yazdanism organizations. Appropriate referrals were made at patient [...] weeks. This document has been created using [employer] Voice Recognition software and SmartCloud. The entry has been reviewed for content and accuracy, but there may still exist "sound alike" marketing systems manager word errors and/or unintended additions and [...] [place] | | | | | | [id number] | | | | | | | [...]
--- OUTSIDE RECORDS SUMMARY | ~2020-05-01 | XMS | Encounter Summary ---
Demographics + + + | Address | [address] | | | [place] [address] | + + + | Home Phone [...] Team Providers + +------+ + | Care Graining Machine Operator Name | Role | Phone [...] as of this encounter Progress Notes Interface, Cooker Casing In - 08/06/2006 1:09 AM PSTCLINIC DATE: [...] provided by Dr. Noland. Lloyd Garcia M.D. Tobacco Flavorer, Orthopedics and Rehabilitation / [id number] / [id number] / [id number] / [id number] cc: Helio Noland M.D. [address] [place], [place] [address]Rgucqsvufkfmam signed by Interface, Cooker Casing In at 08/06/2006 1: 09 AM PSTdocumented in this encounter Plan of Treatment Not on filedocumented as of this encounter Visit Diagnoses Not on filedocumented in this encounter
--- OUTSIDE RECORDS SUMMARY | ~2020-05-01 | XMS | Encounter Summary ---
Demographics + + + | Address | [address] | | | [place] [address] | + + + | Home Phone [...] Team Providers + +------+ + | Care Element Winding Machine Tender Name | Role | Phone [...] Pavilion | | | | | | [place], [place] | | | | | | [address] | | | | | | [phone] | | | +--------+ + + + [...] | + + + + + | [facility] | [address] | [place] [address] | | | PATHOLOGY | [address] | | | + + + + + | [facility] | [address] | [place] [address] | | | PATHOLOGY | [address] [...] | [facility] DEPARTMENT OF | [address] | [place] [address] | | | PATHOLOGY | [address] | | | + + + + + | [facility] DEPARTMENT | [address] | [place] [address] | | | PATHOLOGY | [address] [...] + + + | [facility] | [address] | [place] [address] | | | PATHOLOGY | [address] | | | + + + + + | [facility] | [facility] [address] | [place] [address] | | | PATHOLOGY | [address] [...] DEPARTMENT OF | [address] | [place] [address] | | | PATHOLOGY | [address] | | | + + + + + | [facility] DEPARTMENT OF | [address] | [place] [address] | | | PATHOLOGY | [address] [...]
--- OUTSIDE RECORDS SUMMARY | ~2020-05-01 | XMS | Encounter Summary ---
Demographics + + + | Address | [address] | | | [place] [address] | + + + | Home Phone [...] Providers + +------+ + | Care Change Release Manager Name | Role | Phone | [...]
--- OUTSIDE RECORDS SUMMARY | ~2020-05-01 | XMS | Encounter Summary ---
Demographics + + + | Address | [address] | | | [place] [address] | + + + | Home Phone [...] Providers + +------+ + | Care Assembler Bicycle Name | Role | Phone | + [...] | | | | | Osteoarthros | [address] | Pavilion | | | | | is, | | [place], [place] | | | | | unspecified | | [address] | | | | | whether | | Phone: | | | | | generalized | | [phone] | | | | | or | | Fax: | | | | | localized, | | [phone] | | | | | pelvic | [...] | | [address] | [address] [place], | | | | | Mailcode: PV430 | [place] [address] | | | | | [facility] | | | | | | [place], [place] | | | | | | [address] | | | | | | [phone] | | | +--------+---------+ + + + [...] Walks with glut medius limp. Uses cane lining parts sewer. Pain is in inner groin and posteriorly. [...] + + | Performing | Address | City[facility]State[facility] | Phone Number | | Organization | [...]
--- OUTSIDE RECORDS SUMMARY | ~2020-05-01 | XMS | Encounter Summary ---
Demographics + + + | Address | [address] | | | [place] [address] | + + + | Home Phone [...] Team Providers + +------+ + | Care Vulcan Crewmember Name | Role | Phone | [...] as of this encounter Progress Notes Interface, Embroidery Worker In - 11/23/2005 2:04 AM PST [id number] [facility] Date: 11/07/2005 Clinic: Orthopaedics Shelby Galdamez is a 46-year-old woman seen for evaluation of pain in the right hip and back. She provides a history that she was operated on in [address] Garcia at [facility] for osteoarthritis. She apparently had a [...] given a request to take home to [place] to see if she can get into [...] could formulate some plans. Her phone is #[phone]. Gino Baker M.D. KEE / SALEEM [id number] / [id number] / [id number] / [id number] cc: Quintin Acevedo [facility] [address] [place] [address] Electronically signed by Gino Baker 11-22-2005 02:58:59 PM documented i n this encounter Plan of Treatment Not on filedocumented as of this encounter Visit Diagnoses Not on filedocumented in this encounter"
--- OUTSIDE RECORDS SUMMARY | ~2020-05-01 | XMS | Encounter Summary ---
Demographics + + + | Address | [address] | | | [place] [address] | + + + | Home Phone [...] Team Providers + +------+ + | Care Cleaning Professional Name | Role | Phone | + +------+ + | Marta Jenkins MEDICAL LEAD | PCP | | + +------+ + [...] | | | | Mailcode: [id number] | [place], [place] | | | | | [facility] | [address] | | | | | [place], [place] | [phone] | | | | | [address] | | | | | | [phone] | | | +--------+ + + + [...]
--- OUTSIDE RECORDS SUMMARY | ~2020-05-01 | XMS | Encounter Summary ---
Demographics + + + | Address | [address] | | | [place] [address] | + + + | Home Phone [...] Team Providers + +------+ + | Care Windows Admin Name | Role | Phone | + +------+ + PCP | Unavailable | + +------+ + Encounter Details +--------+ + + + + | Date | Type | Department | Care Team | Description | +--------+ + + + + | 09/18/ | [facility] | [facility] | Helio Ahn | | | 2005 | Encounter | MED CTR SLEEP | MD Candie [address] | | | | | CENTER [address] | [address] [facility] | | | | | [place] | [place] [address] | | | | | [address] | [phone] | | | | | [phone] | | | +--------+ + + + [...] [place] | | | | | | [address] | | | | | | | | +--------+---------+ + + + documented as of this encounter Visit Diagnoses Not on filedocumented in this encounter"
--- OUTSIDE RECORDS SUMMARY | ~2020-05-01 | XMS | Encounter Summary ---
Demographics + + + | Address | [address] | | | [place] [address] | + + + | Home Phone [...] Providers + +------+ + | Care Forest Pathologist Name | Role | Phone | + +------+ + PCP | Unavailable | + +------+ + Encounter Details +--------+ + + + + | Date | Type | Department | Care Team | Description | +--------+ + + + + | 03/19/ | Results | Registration [address] | Sophy, Faculty | | | 2007 | Only | [address] | [phone] | | | | | Rd Mailcode: RPB07 | | | | | | [place], [place] | | | | | | [address] | | | | | | [phone] | | | +--------+ + + + [...]
--- OUTSIDE RECORDS SUMMARY | ~2020-05-01 | XMS | Encounter Summary ---
Demographics + + + | Address | [address] | | | [place] [address] | + + + | Home Phone [...] Team Providers + +------+ + | Care Spud Sorter Name | Role | Phone | [...] | | | | | reaction | [address] | [address] | | | | | due to | [place], [place] | [place], | | | | | internal | [address] | [place] [address] | | | | | joint | Phone: | Phone: | | | | | prosthesis | [phone] | [phone] | | | | | ([facility]) | Fax: | Fax: | | | | | | [phone] | [phone] | +--------+--------+ + + + + Encounter [...] | | | | Loop Physician's | [place], [place] | internal joint | | | | [address], 3rd floor | [address] | prosthesis (HCC) | | | | [place], [place] | [phone] | (Primary Dx) | | | | [address] | | | | | | [phone] | | | +--------+---------+ + + + [...] DISEASES CLINIC FOLLOW UP Primary Care Physician: [address] [place] [address] Ms. Galdamez presents to Infectious Diseases Clinic [...] 18, a nd was therefore admitted to [facility] out of concern for R hip [...] discharged in stable condition on 10/22/2010 to [facility] with OPAT & Orthopedic follow-up planned [place] 2 weeks ti [place]. In OPAT follow-up on 11/09/2010 Ms. Galdamez [...] W-FE,OTHER MIN (CENTRUM ORAL) Take by mouth. [place]-3 Fatty Acids-Vitamin E (FISH OIL) 1,000 mg [...] follow up in Infectious Diseases Clinic in [place]. We are hap py to be consulted again should infectious complications arise. I spent a total of 20 minutes face to face with the patient and over 50% was time spent in counseling in which we discussed infection, antibiotics, duration of therapy, lab results, a nd follow-up planning. Carolina Putnam PA-C [facility] Department of Infectious Disease Outpatient IV Antibiotic Therapy Clinic (OPAT) Pager ID: [phone] [facility]. 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
--- OUTSIDE RECORDS SUMMARY | ~2020-05-01 | XMS | Encounter Summary ---
Demographics + + + | Address | [address] | | | [place] [address] | + + + | Home Phone [...] Providers + +------+ + | Care Rn Staffing Name | Role | Phone | + [...] as of this encounter Progress Notes Interface, Academic Affairs Director In - 2006 1:06 AM PDTCLINIC DATE: 06/24/2003 ORTHOPEDIC CLINIC HISTORY: This is a 43-year-old obese female followed for right hip degenerative joint disease, returns to clinic today having had no relief after her last 2 fluoroscopically guided cortisone injections on October 05, 2002, and January 26, 2003. The x-rays at that time revealed jvrutson-sp-jbobjnto degenerative joint disease. I confirmed that the [...] She does continue to drive in from [employer] for her care here. She continues to [...] times per day. PHYSICAL EXAMINATION GENERAL: A wgkuwqsb-po-raydbbay obese short statured woman who ambulates with [...] authorization has been obtained. Lloyd Garcia M.D. Fixed Income Director of Orthopedics and Rehabilitation / [id number] / [id number] / [id number] / cc: Ninfa Guillen M.D. [address] [place] [address] [id number] signed by Interface, Academic Affairs Director In at 2006 1:06 AM [facility]ed in this encounter Plan of Treatment Not on filedocumented as of this encounter Visit Diagnoses Not on filedocumented in this encounter"
--- OUTSIDE RECORDS SUMMARY | ~2020-05-01 | XMS | Encounter Summary ---
Demographics + + + | Address | [address] | | | [place] [address] | + + + | Home Phone [...] Providers + +------+ + | Care Plant Science Professor Name | Role | Phone | [...] + + | 09/29/ | Office | [facility] | Xiang Sepulveda, | Other chronic pain | | 2019 | Visit | [facility] | DO [address] | (Primary Dx); | | | | [address] | [place], [place] | Osteoarthritis of | | | | [address] | [id number] | lumbar spine, | | | | [place], [place] | | unspecified spinal | | | | [address] | | osteoarthritis | | | | [phone] | | complication status; | | | [...] | | | | | adult ([facility]); | | | | | | Obesities, morbid | | | | | | ([facility]) | +--------+---------+ + + + Social [...] general activity) Total score: (Printable questionnaires in [place] ) Interpretation of Total Score: PEG scores are used to track changes over time. It should de crease after therapy has begun. Last 4 PEG Scores: No flowsheet data found. Opioid Risk Tool (ORT): Total Score Pulse: 94 BP: 160/88 SpO2: 98 % (From Chronic Pain tab; printable questionnaires in Canadian) Interpretation of Total Score: 0 to 3 [...] ; Surg andrés: Rustam Schmid MD; Location: [facility] [place] Review of Systems Objective: [...] reviewed, listed controlled substances are consistent with [facility] prescriptions and patient reported use. Controlled [...] Patient states that he has seen a pot press operator and Has started a diet and every [...] imited to physical therapy, massage therapy, acupuncture, group care worker, along with jabari mmended psychological counseling, either privately, or in group sessions offered by private care individuals, community services, or mandaeism organizations. Appropriate referrals were made at patient [...] weeks. This document has been created using [employer] Voice Recognition software and [employer]. The entry has been reviewed for content and accuracy, but there may still exist "sound alike" on site property manager word errors and/or unintended additions and [...] [place] | | | | | | [id number] | | | | | | | [...]
--- OUTSIDE RECORDS SUMMARY | ~2020-05-01 | XMS | Encounter Summary ---
Demographics + + + | Address | [address] | | | [place] [address] | + + + | Home Phone [...] Providers + +------+ + | Care Microfilm Technician Name | Role | Phone | [...] as of this encounter Progress Notes Interface, Metal Turner In - 06/23/2006 1:07 AM PDTCLINIC DATE: [...] Ken Mejia M.D. Lloyd Garcia M.D. / [id number] / [id number] / [id number] / Tdocumented in this encounter Plan of Treatment Not on filedocumented as of this encounter Visit Diagnoses Not on filedocumented in this encounter"
--- OUTSIDE RECORDS SUMMARY | ~2020-05-01 | XMS | Encounter Summary ---
Demographics + + + | Address | [address] | | | [place] [address] | + + + | Home Phone [...] Team Providers + +------+ + | Care Blacking Wheel Tender Name | Role | Phone | + +------+ + | Marta Jenkins PROCESS MAINTENANCE TECHNICIAN | PCP | | + +------+ [...] | Jamie Mailcode: [address] [place], | | | | | [place], [place] | [place] [address] | | | | | [address] | | | | | | [phone] | | | +--------+ + + + [...] [place] DEPARTMENT | [address] | [place] [address] | | | PATHOLOGY | [address] | | | + + + + + | [facility] DEPARTMENT OF | [address] | [place] [address] | | | PATHOLOGY | [address] [...] + + + + + | [facility] | [address] | [place] [address] | | | PATHOLOGY | [address] | | | + + + + + | [facility] | [address] [place] [address] [address] | [place] [address] | | | PATHOLOGY | [address] [...] [facility] DEPARTMENT OF | [address] | [place] [address] | | | PATHOLOGY | [address] | | | + + + + + | [facility] DEPARTMENT OF | [address] | [place] [address] | | | PATHOLOGY | [address] [...]
--- OUTSIDE RECORDS SUMMARY | ~2020-05-01 | XMS | Encounter Summary ---
Demographics + + + | Address | [address] | | | [place] [address] | + + + | Home Phone [...] Team Providers + +------+ + | Care General Production Manager Name | Role | Phone [...] as of this encounter Discharge Summaries Interface, Sizing Machine Operator In - 03/06/2006 1:10 AM [...] time of discharge. She initially had a LAW FIRM RECEPTIONIST that was weaned off as well as [...]
--- OUTSIDE RECORDS SUMMARY | ~2020-05-01 | XMS | Encounter Summary ---
Demographics + + + | Address | [address] | | | [place] [address] | + + + | Home Phone [...] Team Providers + +------+ + | Care Dispatcher Street Department Name | Role | Phone | [...] + + | 05/29/ | Office | [facility] | Xiang Sepulveda, | Chronic pain | | 2019 | Visit | [facility] | DO [address] | syndrome (Primary | | | | [address] | [place], [place] | Dx); Radiculopathy | | | | [address] | [address] | of lumbar region; | | | | [place], [place] | | DDD (degenerative | | | | [address] | | disc disease), | | | | [phone] | | lumbar; Facet | | | [...] Service: (none) Author Type: Physician Filed: 05/07/19 1135 Encounter Date: 05/07/2019 Status: Addendum Avp: Xiang Sepulveda DO (Physician) Related Notes: Original Note by Xiang Sepulveda DO (Physician) filed at 05/07/19 1124 Patient returns for medication review and adjustment [...] to physical therapy, mass age therapy, acupuncture, career development associate, along with recommended psychological counseling , either privately, or in group sessions offered by private care individuals, community serv ices, or restorationist organizations. Appropriate referrals were made at patient [...] Will return to office in 4 weeks, [facility] was consulted and appears appropriate, Urine [...] are noted in men and women. Ma pa men will suffer erectile dysfunction with these [...] and complications with the passage of time. FDC use is also associated with depressions, and [...] [place] | | | | | | [address] | | | | | | | [...]
--- OUTSIDE RECORDS SUMMARY | ~2020-05-01 | XMS | Encounter Summary ---
Demographics + + + | Address | [address] | | | [place] [address] | + + + | Home Phone [...] Providers + +------+ + | Care Communications Maintainer Name | Role | Phone | [...] | | | | | osteoarthrit | [address] | [address] | | | | | is of left | Pankaj Bergman | Yasmany Gil | | | | | hip | Rox[address] Ayala | Center for | | | | | Procedures | [place], [place] | [facility] and | | | | | CONSULT TO | [address] | Healing, | | | | | BARIATRIC | Phone: | Building [address] | | | | | SURGERY | [phone] | [place], [place] | | | | | | Fax: | [address] | | | | | | [phone] | Phone: | | | | | | | | | | | | | | Fax: | | | | | | | [phone] | +--------+--------+ + + + + Reason [...] | | | | | | Rd [place], | | | | | | | [place] | | | | | | | [address] | | | | | | | Phone: | | | | | | | [phone] | | | | | | | Fax: | | | | | | | [phone] | +--------+--------+ + + + + Encounter Details +--------+---------+ + + + | Date | Type | Department | Care Team | Description | +--------+---------+ + + + | 10/02/ | Office | Orthopaedics | Royce Durand, | Primary | | 2019 | Visit | [facility] | [address] | osteoarthritis of | | | | for Health and | [address] | left hip (Primary | | | | Healing [address] | [facility] [place] | Dx); Left hip pain; | | | | [facility] for | [address] | Smoking; Chronic | | | | Health and Healing, | [phone] | obstructive | | | | | | pulmonary disease, | | | | Floor [place], [place] | | unspecified COPD | | | | [address] | | type ([facility]); Class 3 | | | | [phone] | | severe obesity with | | [...] present | | | | | | ([facility]) | +--------+---------+ + + + Social History [...] different fro m the original. [facility] DEPARTMENT OF ORTHOPAEDICS & REHABILITATION Adult [...] W-FE,OTHER MIN (CENTRUM ORAL), Take by mouth. [place]-3 Fatty Acids-Vitamin E (FISH OIL) 1,000 mg [...] The patient was offered a referral to [facility], for non-surgical and potentially surgical [...]
--- OUTSIDE RECORDS SUMMARY | ~2020-05-01 | XMS | Encounter Summary ---
Demographics + + + | Address | [address] | | | [place] [address] | + + + | Home Phone [...] Team Providers + +------+ + | Care Sterilization Tech Name | Role | Phone | [...] Pavilion | | | | | | [place], [place] | | | | | | [address] | | | | | | [phone] | | | +--------+ + + + [...] of | | | | | | Ycbs-Apxpqcsegay-pytuxef | | | | | | jose. [...] + | [facility] DEPARTMENT | | | | | [...]
--- OUTSIDE RECORDS SUMMARY | ~2020-05-01 | XMS | Encounter Summary ---
Demographics + + + | Address | [address] | | | [place] [address] | + + + | Home Phone [...] Providers + +------+ + | Care Steward/Stewardess Night Name | Role | Phone | + [...] | due to | [place] | | | | | unspecified | [address] | [address] | | | | | device, | Phone: | Phone: | | | | | implant, and | [phone] | [phone] | | | | | graft | Fax: | Fax: | | | | | | [phone] | [phone] | +--------+--------+ + + + + Encounter [...] | | | [address] | [facility] [address] | (Primary Dx) | | | | Loop Physician's | [place], [place] | | | | | [address], 3rd floor | [address] | | | | | [place], [place] | [phone] | | | | | [address] | | | | | | [phone] | | | +--------+---------+ + + + [...] CLINIC FOLLOW UP Primary Care Physician: Carlos [address] [address] Ms. Galdamez presents to Infectious Diseases Clinic [...] 18, a nd was therefore admitted to [facility] out of concern for R hip [...] discharged in stable condition on 10/22/2010 to [facility] with OPAT & Orthopedic follow-up planned in 2 weeks ti id. Interim History obtained 11/17/2010: Ms. Galdamez presents [...] R hip incision has healed very well. [place] were removed locally, and there has been [...] as well as in shoes and socks. [place]-3 Fatty Acids-Vitamin E (FISH OIL) 1,000 mg [...] She will travel to her PCP in [place] in 1 weeks time for another PICC [...] lab results, a nd follow-up planning. Carolina Puntam PA-C [facility] Department of Infectious Disease Outpatient IV Antibiotic Therapy Clinic (OPAT) Pager ID: [phone] Mail [address] [place] [address] documented in th is encounter Plan of [...] [facility] | [address] | [place] [address] | | | PATHOLOGY | [address] [...] At | + + + | [facility]LB ([facility]) | [facility] | | [facility] [address] | REGIONAL | | [place] [address] | LABORATORY | + + + + + + + + | Performing | Address | City/State/Zipcode | Phone Number | | Organization | | | | + + + + + | [facility] | [address] | [place] [address] | | | LABORATORY | | | [...] + + | [facility] DEPARTMENT OF | [address] | [place] [address] | | | PATHOLOGY | [address] [...] | | | DEPARTMENT | | | LITHUANIAN | | | OF | | | [...] DEPARTMENT OF | [address] | [place] [address] | | | PATHOLOGY | [address] [...] [facility] | [address] | [place] [address] | | | PATHOLOGY | [address] | | | + + + + + documented in this encounter Visit Diagnoses + + | Diagnosis | + + | 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
--- OUTSIDE RECORDS SUMMARY | ~2020-05-01 | XMS | Encounter Summary ---
Demographics + + + | Address | [address] | | | [place] [address] | + + + | Home Phone [...] Team Providers + +------+ + | Care Weed Controller Name | Role | Phone | [...] | | | JOSE | [address] [facility] | | | | | | MEDICAL | [facility] | | | | | | CLINIC [address] | [address] [place], | | | | | | [address] | [place] | | | | | | [place], [place] | [address] | | | | | | [address] | Phone: | | | | | | | [phone] | | | | | | | Fax: | | | | | | | [phone] | +--------+--------+ + + + + Encounter [...] | | | | Mailcode: PV430 | [place], [place] | Calcification; Back | | | | Phys[facility] | [address] | Pain; Hip Pain | | | | [place], [place] | [phone] | | | | | [address] | | | | | | [phone] | | | +--------+---------+ + + + [...] and plan of care. KALYAN COLBY MD [facility] ORTHOPAEDICS & REHABILITATION [address] [facility] [place] [phone] aRaul kasper - 8 12:04 PM PDT [...] w ound vac placement were undertaken with intermediate designer antibiotics until the infection cleared. She now [...]
--- OUTSIDE RECORDS SUMMARY | ~2020-05-01 | XMS | Encounter Summary ---
Demographics + + + | Address | [address] | | | [place] [address] | + + + | Home Phone [...] as of this encounter Progress Notes Interface, Tube Bending Machine Operator In - 04/15/2006 1:11 AM PDTCLINIC DATE: [...] age and her obesity. Lloyd Garcia M.D. Printing Sign Machine Operator of Orthopedics and Rehabilitation / [id number] / [id number] / [id number] / cc: Rinaldi M.D. [address], [place] [id number] signed by Interface, Tube Bending Machine Operator In at 04/15/2006 1:1 1 AM PDTInterface, Tube Bending Machine Operator In - 04/15/2006 1:11 AM PDTCLINIC DATE: [...] her injection. MD Lloyd Merritt M.D. / [id number] / [id number] / [id number] / Tdocumented in this encounter Plan of Treatment Not on filedocumented as of this encounter Visit Diagnoses Not on filedocumented in this encounter"
--- OUTSIDE RECORDS SUMMARY | ~2020-05-01 | XMS | Encounter Summary ---
Demographics + + + | Address | [address] | | | [place] [address] | + + + | Home Phone [...] Team Providers + +------+ + | Care Figure Refinisher And Repairer Name | Role | Phone | + +------+ + | Marta Jenkins EXPLOSIVE ORDNANCE MANAGER | PCP | | + +------+ + Encounter Details +--------+ + + + + | Date | Type | Department | Care Team | Description | +--------+ + + + + | 11/19/ | Documentati | Digestive Health | Clinic, Surgery | | | 2019 | on | Center at [facility] [address] | | | | | | [address] [facility] | | | | | | for Health and | | | | | | Healing, Building [address] | | | | | | [place], [place] | | | | | | [address] | | | | | | [phone] | | | +--------+ + + + [...]
--- OUTSIDE RECORDS SUMMARY | ~2020-05-01 | XMS | Encounter Summary ---
Demographics + + + | Address | [address] | | | [place] [address] | + + + | Home Phone [...] + +------+ + | Care Cloth Winder Machine Operator Name | Role | Phone [...] of this encounter Progress Notes Interface, Solution Manager In - 04/28/2005 10:57 PM PDTClinic [...] longer any fluid pocket. Lloyd Garcia M.D. Mix Mill Tender, Orthopedics and Rehabilitation / [id number] / [id number] / [id number] / [id number] cc: Everett Ibrahim MD [address] [place], [place] [address]Zzaueylvbjufiq signed by Interface, Solution Manager In at 04/28/2005 10:57 PM PDTdocumented in this encounter Plan of Treatment Not on filedocumented as of this encounter Visit Diagnoses Not on filedocumented in this encounter"
--- OUTSIDE RECORDS SUMMARY | ~2020-05-01 | XMS | Encounter Summary ---
Demographics + + + | Address | [address] | | | [place] [address] | + + + | Home Phone [...] Team Providers + +------+ + | Care Binitrotoluene Operator Name | Role | Phone | [...] | [facility] at [facility] | MEGAN Reddy [address] | | | | | [address] | [address] | | | | | Loop Physician's | [place], [place] | | | | | [place], 3rd floor | [address] | | | | | [place], [place] | [phone] | | | | | [address] | | | | | | [phone] | | | +--------+ + + + [...]
--- OUTSIDE RECORDS SUMMARY | ~2020-05-01 | XMS | Encounter Summary ---
Demographics + + + | Address | [address] | | | [place] [address] | + + + | Home Phone [...] Team Providers + +------+ + | Care Receptionist Name | Role | Phone | [...] Pavilion | | | | | | [place], [place] | | | | | | [address] | | | | | | [phone] | | | +--------+ + + + [...] | + + + + + | [facility] | [address] | [place] [address] | | | LABORATORY | | | [...] | + + + + + | [facility] DEPARTMENT OF | [address] [facility] | [place] [address] | | | PATHOLOGY | [address] | | | + + + + + | [facility] DEPARTMENT OF | [address] [facility] | [place] [address] | | | PATHOLOGY | [address] [...] + | [facility] | [address] | [place] [address] | | | PATHOLOGY | [address] | | | + + + + + | [facility] | [facility] [address] | [place] [address] | | | PATHOLOGY | [address] [...] DEPARTMENT OF | [address] | [place] [address] | | | PATHOLOGY | [address] | | | + + + + + | [facility] | [address] | [place] [address] | | | PATHOLOGY | [address] [...] Marybeth, | | | | | | Librarian Helper, | | | | | | attime [...] | + + + + + | [facility] | [address] | [place] [address] | | | LABORATORY | | | [...] | + + + + + | [facility] DEPARTMENT OF | [address] | [place] [address] | | | PATHOLOGY | [address] | | | + + + + + | [facility] DEPARTMENT OF | [address] | [place] [address] | | | PATHOLOGY | [address] [...] | + + + + + | [facility] DEPARTMENT OF | [address] [facility] | [place] [address] | | | PATHOLOGY | [address] | | | + + + + + | [facility] DEPARTMENT OF | [address] [facility] | [place] [address] | | | PATHOLOGY | [address] [...] | + + + + + | [facility] DEPARTMENT OF | [address] [facility] | [place] [address] | | | PATHOLOGY | [address] | | | + + + + + | [facility] DEPARTMENT OF | [address] [facility] | [place] [address] | | | PATHOLOGY | [address] [...] | + + + + + | [facility] | [address] | [place] [address] | | | LABORATORY | | | [...] [facility] | [address] | [place] [address] | | | PATHOLOGY | [address] | | | + + + + + | [facility] | [address] [address] | [place] [address] | | | PATHOLOGY | [address] [...] | + + + + + | [facility] DEPARTMENT OF | [address] | [place] [address] | | | PATHOLOGY | [address] | | | + + + + + | [facility] DEPARTMENT OF | [address] | [place] [address] | | | PATHOLOGY | [address] [...] [facility] | [address] [facility] | [place] [address] | | | PATHOLOGY | [address] | | | + + + + + | [facility] DEPARTMENT OF | [facility] | [place] [address] | | | PATHOLOGY | [address] [...] + + + | [facility] | [address] | [place] [address] | | | LABORATORY | | | [...] [facility] | [address] [facility] | [place] [address] | | | PATHOLOGY | [address] | | | + + + + + | [facility] DEPARTMENT OF | [address] [facility] | [place] [address] | | | PATHOLOGY | [address] [...] + + | [facility] DEPARTMENT OF | [address] | [place] [address] | | | PATHOLOGY | [address] | | | + + + + + | [facility] | [address] | [place] [address] | | | PATHOLOGY | [address] [...] PRIMARY | | | | | | LICENSED VOCATIONAL NURSE: Joao Wilde | | | | | [...] | | | | | aspirated. A12 Lao | | | | | | multi [...] + + + | [facility] | [address] | [place] [address] | | | LABORATORY | | | [...] | + + + + + | [facility] DEPARTMENT OF | [address] | [place] [address] | | | PATHOLOGY | [address] | | | + + + + + | [facility] DEPARTMENT OF | [address] | [place] [address] | | | PATHOLOGY | [address] [...] (L) | 7.4 - 10.4 fL | [facility] | | | | | | DEPARTMENT [...] | + + + + + | [facility] DEPARTMENT OF | [address] [facility] | [place] [address] | | | PATHOLOGY | [address] | | | + + + + + | [facility] DEPARTMENT OF | [address] [facility] | [place] [address] | | | PATHOLOGY | [address] [...] | + + + + + | [facility] DEPARTMENT OF | [address] | [place] [address] | | | PATHOLOGY | [address] | | | + + + + + | [facility] DEPARTMENT OF | [address] | [place] [address] | | | PATHOLOGY | [address] [...] | [facility] | [facility] | [place] [address] | | | PATHOLOGY | [address] | | | + + + + + | [facility] DEPARTMENT OF | [address] [facility] | [place] [address] | | | PATHOLOGY | [address] [...] [facility] | [address] [facility] | [place] [address] | | | PATHOLOGY | [address] | | | + + + + + | [facility] | [address] [facility] | [place] [address] | | | PATHOLOGY | [address] [...] DEPARTMENT OF | [address] | [place] [address] | | | PATHOLOGY | [address] | | | + + + + + | [facility] DEPARTMENT OF | [address] | [place] [address] | | | PATHOLOGY | [address] [...] HOSPITAL OF | [address] | [place] [address] | | | PATHOLOGY | [address] | | | + + + + + | [facility] | [address] | [place] [address] | | | PATHOLOGY | [address] [...] + + + | [facility] | [address] | [place] [address] | | | LABORATORY | | | | + + + + + documented in this encounter Visit Diagnoses Not on filedocumented in this encounter"
--- OUTSIDE RECORDS SUMMARY | ~2020-05-01 | XMS | Encounter Summary ---
Demographics + + + | Address | [address] | | | [place] [address] | + + + | Home Phone [...] Providers + +------+ + | Care Fire Extinguisher Sprinkler Inspector Name | Role | Phone | [...]
--- OUTSIDE RECORDS SUMMARY | ~2020-05-01 | XMS | Encounter Summary ---
Demographics + + + | Address | [address] | | | [place] [address] | + + + | Home Phone [...] + +------+ + | Care Director Of Rooms Name | Role | Phone | + [...] + + | 11/25/ | Surgery | [facility] | Rustam Schmid MD | RIGHT URETEROSCOPY | | 2016 | | MED CTR OR INTRA OP | [address] [facility] | W/ LASER LITHOTRIPSY | | | | [address] | [place] | RIGHT URETERAL | | | | [place] | [address] | STENT PLACEMENT. | | | | [address] | [phone] | | | | | [phone] | | | +--------+---------+ + + + [...] upon return of cul ture results from [facility]. Stent may be removed by her gang plank workman on Saturday 5 or SaturdayDecember 03. AttachmentsThe following attachments cannot be sent through Care Everywhere.DIET, DISCHARGE INSTRUCTIONS FOR EATING A LOW-SALT (DANISH)KIDNEY STONES,PREVENTING (DANISH)documented in this encounter Medications at Time of [...] at 0545 via ground ambul ance from [facility] in [place]. C/o rt back/flank pain. Dry heaves noted. [...] Schmid MD - 11/25/2016 6:52 AM PST [facility] ADMIT HISTORY AND PHYSICAL Primary Care Physician: [...] is a 56 y.o. female, transferred from [facility] emergency room with s ymptomatic right ureterolithiasis. [...] Signed by: Rustam Schmid MD, 11/25/2016 7:05 [facility] documented in this enc ounter Nursing Notes Hugh Fung RN - 11/25/2016 11:21 AM PSTStent tether taped with tegaderm - intact.Elec tronically signed by uHgh Fung RN at 11/25/2016 11:22 AM PSTdocumented in this encount er Miscellaneous Notes Plan of Care - Carolina Ly RN - 11/25/2016 6:53 PM PSTDenies pain, voiding with out difficulty, ambulating and tolerating diet. All discharge criteria met. Discharge instr uctions reviewed with patient. Left with caregiver in stable condition. p Note - Rustam Schmid MD - 2016 11[facility] Pt. Name/Age/: Shelby Galdamez 56 y.o. 1960 Med. Record Number: [id number] Date of Operation/Procedure: 11/25/2016 Preoperative Diagnosis: right ureteral stones [N20.1] Post-Op Diagnosis Codes: * Right ureteral stone [N20.1] Postoperative Diagnosis: Same Surgeon: Rustam Schmid MD Customer Support Technician(s): None Anesthesia Provider(s): Anesthesiologist: Helio Barkley MD Autotransfusionist: Rain Edouard Anesthesia Type: General Procedure(s): RIGHT URETEROSCOPIC LASER LITHOTRIPSY PLACEMENT RIGHT URETERAL STENT PLACEMENT Operative Indications: Shelby Galdamez is a 56 y.o. year old female transferred from [facility] several hours ago, with CT demonstrating [...] the usual sterile fashion . A 23 Mauritanian cystoscope was introduced to the bladder with [...] were removed. A 25 cm x 14 Mauritanian ureteral access sheath was threaded over the [...] back over the safety wire. A 6 Mauritanian by 26 cm diana ble-J stent was [...] Signed by: Rustam Schmid MD, 11/25/2016 11:01 [facility] documented in this enc ounter Plan [...] [place] | | | | | | [address] | | | | | | | [...] MD | | | | | | ([id number]) on 11/25/2016 | | | | | [...]
--- OUTSIDE RECORDS SUMMARY | ~2020-05-01 | XMS | Encounter Summary ---
Demographics + + + | Address | [address] | | | [place] [address] | + + + | Home Phone [...] Team Providers + +------+ + | Care Lump Receiver Name | Role | Phone | + [...] as of this encounter Progress Notes Interface, Pit Operator In - 04/28/2006 3:06 AM PDTCLINIC DATE: 09/24/2002 [facility]INIC SUBJECTIVE: A 42-year-old obese female follows for right hip endstage degenerative joint disease. She returns to clinic today stating that her hip is bothering her again. Her last injection was 6 months ago in February 2002. It lasted approximately 5 months. [facility]. She takes Celebrex, multivitamin, and [...] fluoroscopically-guided hip injections closer to home in [place], [place], and come here when she fails to respond to schedule her total hip replacement at that time. She seems to prefer to drive across the [place] for her care. Lloyd Garcia M.D. Mica Miner, Orthopedics and Rehabilitation / [id number] / [id number] / [id number] / [id number] cc: Ninfa Guillen M.D. [address] [place], [place] [address]Fakqcaqzojdddl signed by Interface, Pit Operator In at 04/28/2006 3:0 6 AM PDTInterface, Pit Operator In - 04/28/2006 3:06 AM PDTCLINIC DATE: [...] have to return all the way to [facility] from [place], [place]. Shruti Manjarrez MD AM / [id number] / [id number] / [id number] / 74097 cc: Ninfa Guillen M.D. [address] [place], [place] [id number] signed by Interface, Pit Operator In at 04/28/2006 3:0 6 AM PDTdocumented in this encounter Plan of Treatment Not on filedocumented as of this encounter Visit Diagnoses Not on filedocumented in this encounter"
--- OUTSIDE RECORDS SUMMARY | ~2020-05-01 | XMS | Encounter Summary ---
Demographics + + + | Address | [address] | | | [place] [address] | + + + | Home Phone [...] Team Providers + +------+ + | Care Bacteriology Research Assistant Name | Role | Phone | [...] | | | | due to | [place] | | | | | unspecified | [address] | [address] | | | | | device, | Phone: | Phone: | | | | | implant, and | [phone] | [phone] | | | | | graft | Fax: | Fax: | | | | | | [phone] | [phone] | +--------+--------+ + + + + Encounter [...] | | | | [address] | [place] [address] | internal joint | | | | Physician's | [phone] | prosthesis (HCC) | | | | Pavilion, 4th floor | | (Primary Dx) | | | | [place], [place] | | | | | | [address] | | | | | | [phone] | | | +--------+---------+ + + + [...] this encounter Patient Instructions Patient Instructions Albino Tereas MD - 11/23/2010 3:29 PM PSTYou will [...] DISEASES CLINIC FOLLOW UP Referrring Physician: TYRONE OCLBY [facility] Orthopedics [address] [place] [address] Primary Care Physician: [address] [place] [address] Ms. Galdamez presents to Infectious Diseases Clinic [...] procedure. Indications : Staphylococcus Aureus Joint Infection Furlong-3 Fatty Acids-Vitamin E (FISH OIL) 1,000 mg [...] above discussion. ALBINO TERESA MD INFECTIOUS DISEASES [address] [place] [address] Mailcode: L[address] [address] documented in this e ncounter [...]
--- OUTSIDE RECORDS SUMMARY | ~2020-05-01 | XMS | Encounter Summary ---
Demographics + + + | Address | [address] | | | [place] [address] | + + + | Home Phone [...] Providers + +------+ + | Care Development Officer Name | Role | Phone | [...] | | | | | [place], | | | | | | [place] [address] | | | +--------+ + + + [...] | | Patient: SHELBY GALDAMEZ Med Rec: [id number] Sex F Bdate: 1960 | | Date/Time Data | | Entered Into [facility] | | Anesth PostOp | | Surgery Date [id number] 10/11/03 10:54 | | [id number] 10/06/03 10:47 | | [id number] 10/04/03 10:47 | | [id number] 10/01/03 11:25 | | [id number] 09/28/03 10:01 | | [id number] 09/27/03 11:35 | | [id number] 09/14/03 11:13 | | [id number] 08/17/03 10:51 | | Anesthesiologist SEBASTIAN MARIO [...]
--- OUTSIDE RECORDS SUMMARY | ~2020-05-01 | XMS | Encounter Summary ---
Demographics + + + | Address | [address] | | | [place] [address] | + + + | Home Phone [...] Providers + +------+ + | Care Director Business Development Name | Role | Phone | [...] Pavilion | | | | | | [place], [place] | | | | | | [address] | | | | | | [phone] | | | +--------+ + + + [...] | AB, IGM | Test performed by [facility] | | | | | | [facility] | | | | | | [facility]. | | | | + + + + + + + + | Specimen | + + | | + + + + + + + | Performing | Address | City/State/Zipcode | Phone Number | | Organization | | | | + + + + + | [facility] | [address] | [place] [address] | | | LABORATORY | | | [...] by | | | | | | [facility] | | | | | | [facility]. | | | | + + + + + + + + | Specimen | + + | | + + + + + + + | Performing | Address | City/State/Zipcode | Phone Number | | Organization | | | | + + + + + | [facility] | [address] | [place] [address] | | | LABORATORY | | | [...] [facility] | | | | | | [facility] | | | | | | Laboratories. | | | | + + + + + + + + | Specimen | + + | | + + + + + + + | Performing | Address | City/State/Zipcode | Phone Number | | Organization | | | | + + + + + | [facility] | [address] | [place] [address] | | | LABORATORY | | | [...] | AB TOTAL | Test performed by [facility] | | | | | | [facility] | | | | | [...] | + + + + + | [facility] | [address] | [place] [address] | | | LABORATORY | | | [...] | + + + + + | [facility] | [address] | [place] [address] | | | PATHOLOGY | [address] | | | + + + + + | [facility] | [address] | [place] [address] | | | PATHOLOGY | [address] [...] [facility] DEPARTMENT OF | [address] | [place] [address] | | | PATHOLOGY | [address] | | | + + + + + | [facility] DEPARTMENT OF | [address] | [place] [address] | | | PATHOLOGY | [address] [...] | + + + + + | [facility] | [facility] | [place] [address] | | | PATHOLOGY | [address] | | | + + + + + | [facility] | [facility] [address] | [place] [address] | | | PATHOLOGY | [address] [...] [facility] DE[facility] | [address] [facility] | [place] [address] | | | PATHOLOGY | [address] | | | + + + + + | [facility] DEPARTMENT OF | [address] [facility] | [place] [address] | | | PATHOLOGY | [address] [...] | + + + + + | [facility] | [address] | [place] [address] | | | PATHOLOGY | [address] | | | + + + + + | [facility] | [address] | [place] [address] | | | PATHOLOGY | [address] [...] DEPARTMENT OF | [address] | [place] [address] | | | PATHOLOGY | [address] | | | + + + + + | [facility] | [address] | [place] [address] | | | PATHOLOGY | [address] [...] | + + + + + | [facility] | [address] | [place] [address] | | | LABORATORY | | | [...] DEPARTMENT OF | [address] | [place] [address] | | | PATHOLOGY | [address] | | | + + + + + | [facility] DEPARTMENT OF | [address] | [place] [address] | | | PATHOLOGY | [address] [...] DEPARTMENT OF | [address] | [place] [address] | | | PATHOLOGY | [address] | | | + + + + + | [facility] DEPARTMENT OF | [address] | [place] [address] | | | PATHOLOGY | [address] [...] + + + + | PRODUCT | [id number] | | [facility] | | | UNIT [...] + | [facility] DEPARTMENT | [address] [facility] | [place] [address] | | | PATHOLOGY | [address] | | | + + + + + | [facility] | [address] [place] [address] | [place] [address] | | | PATHOLOGY | [address] [...] + + + + | PRODUCT | [id number] | | [facility] | | | UNIT [...] | STATUS OF | Transfused | | [facility] | | | UNIT | | | [...] [facility] DE[facility] | [address] [facility] | [place] [address] | | | PATHOLOGY | [address] | | | + + + + + | [facility] DEPARTMENT OF | [address] [facility] | [place] [address] | | | PATHOLOGY | [address] [...] DEPARTMENT OF | [address] | [place] [address] | | | PATHOLOGY | [address] | | | + + + + + | [facility] | [address] | [place] [address] | | | PATHOLOGY | [address] [...] | | | | | available on Druidly and | | | | | | [...] | + + + + + | [facility] | [address] | [place] [address] | | | LAB-MICRO | | | [...] + + + + + | [facility] | [address] | [place] [address] | | | LAB-MICRO | | | [...] | + + + + + | [facility] | [address] | [place] [address] | | | LAB-MICRO | | | | + + + + + documented in this encounter Visit Diagnoses Not on filedocumented in this encounter"
--- OUTSIDE RECORDS SUMMARY | ~2020-05-01 | XMS | Encounter Summary ---
Demographics + + + | Address | [address] | | | [place] [address] | + + + | Home Phone [...] Providers + +------+ + | Care Video Editor Name | Role | Phone | [...] | | | | | inflammation | [place], [place] | [place], [place] | | | | | ([facility]) | [address] | [address] | | | | | Procedures | | Phone: | | | | | CT INJ | | [phone] | | | | | SACROILIAC | | Fax: | | | | | JOINT | | [phone] | | | | | W/NEEDLE | | | | | | | PLCMT | | | +--------+--------+ + + + + Encounter Details +--------+ + + + + | Date | Type | Department | Care Team | Description | +--------+ + + + + | 03/22/ | Hospital | Diagnostic Imaging | | | | 2009 | Encounter | Services at [facility] | | | | | | [address] | | | | | | Roxann [place] | | | | | | [address] | | | | | | [place], [place] | | | | | | [address] | | | | | | [phone] | | | +--------+ + + + [...] | + + + +---------+--------+ + | [place]-3 Fatty | Take by mouth. | | [...] None. | | | | | | Neurosurgical Nurse Practitioner: Dr. Moss, | | | | | | residential caregiver. | | | | | | Histotechnologist Supervisor: | | | | | | Sue, [...] the | | | | | | aircraft life support fitter. Diamond Finishing Supervisor | | | | | | [...]
--- OUTSIDE RECORDS SUMMARY | ~2020-05-01 | XMS | Clinical Summary ---
Demographics + + + | Address | [address] | | | [place] [address] | + + + | Home Phone [...] Team Providers + +------+ + | Care Chocolate Refining Roller Name | Role | Phone | + +------+ + | JenkinsMarta jackson COMPUTER SECURITY MANAGER | PCP | | + +------+ + Source Comments LION is fully live on both [facility] and [facility] InPatient.[facility] Allergies + + + + + + [...] | | + + + +---------+------+------+-------+ | [place]-3 Fatty | Take by mouth. | | [...] | | | + +--------+ +--------+-------+---------+--------+ | PLANT SCIENCE PROFESSOR MEDICAID | PLANT SCIENCE PROFESSOR | xxxxxxxx | 06/01/20 | | | [...] gigi | | | 7 (Home) | [id number] | + +--------+ +--------+ + + | Shelby Galdamez | Third | Self | [birth year] | [address] | | | Republican | | 1960 | [phone] | [address] [place] | | | Liabil | | | 7 (Home) | [address] | | | ity | | | | | + +--------+ +--------+ + + Advance Directives + + + + + | Type | Date Recorded | Patient | Explanation | | | | Reducing Machine Operator | | + + + + + | Advance | | | | | Directives and | | | | | Living Will | | | | + + + + + | Power of | | | | | Communications Designer | | | | + + + [...]
--- OUTSIDE RECORDS SUMMARY | ~2020-05-01 | XMS | Encounter Summary ---
Demographics + + + | Address | [address] | | | [place] [address] | + + + | Home Phone [...] Providers + +------+ + | Care Senior Reliability Engineer Name | Role | Phone [...] Pavilion | | | | | | [place], [place] | | | | | | [address] | | | | | | [phone] | | | +--------+ + + + [...]
--- OUTSIDE RECORDS SUMMARY | ~2020-05-01 | XMS | Encounter Summary ---
Demographics + + + | Address | [address] | | | [place] [address] | + + + | Home Phone [...] Team Providers + +------+ + | Care Transaction Coordinator Name | Role | Phone | [...] as of this encounter Progress Notes Interface, Chief Librarian Circulation Department In - 08/22/2006 5:13 AM PSTCLINIC DATE: [...] Valium. PHYSICAL EXAMINATION: She ambulates with a mqkuuxol-vq-gmvfzw leg coxalgic gait leaning over the right [...] that they are appropriate. Lloyd Garcia MD Slag Wheeler Department of Orthopaedics / [id number] / [id number] / [id number] / [id number] C: 01/19/2000 jerman cc: Helio Noland MD [address] [place], [place] [address] [place] [address] [id number] signed by Interface, Chief Librarian Circulation Department In at 08/22/2006 5:13 AM PSTdocumented in this encounter Plan of Treatment Not on filedocumented as of this encounter Visit Diagnoses Not on filedocumented in this encounter"
--- OUTSIDE RECORDS SUMMARY | ~2020-05-01 | XMS | Encounter Summary ---
Demographics + + + | Address | [address] | | | [place] [address] | + + + | Home Phone [...] Providers + +------+ + | Care Steel Die Press Set Up Operator Name | Role | Phone | + +------+ + | Marta Jenkins CANDY ROLLING MACHINE OPERATOR | PCP | | + [...] | | | | Mailcode: PV430 | [place], [place] | | | | | [facility] | [address] | | | | | [place], [place] | [phone] | | | | | [address] | | | | | | [phone] | | | +--------+ + + + [...]
--- OUTSIDE RECORDS SUMMARY | ~2020-05-01 | XMS | Encounter Summary ---
Demographics + + + | Address | [address] | | | [place] [address] | + + + | Home Phone [...] Team Providers + +------+ + | Care Hard Candy Spinner Name | Role | Phone | + [...] as of this encounter Progress Notes Interface, Learning Development Specialist In - 08/20/2006 3:01 AM PSTCLINIC [...] views. Fox Chopra M.D. BETH / [place] [id number] / [id number] / 15703 / C: 02/18/2000 jerman Noland M.D. [place], [place] [address] [place] [address], [address] [place], [place] [address]Ugrjnjjpkhglxo signed by Interface, Learning Development Specialist In at 08/20/2006 3:01 AM PSTInterface, Learning Development Specialist In - 08/20/2006 3:01 AM PSTCLINIC [...] from her physical therapist, Rustam Sykes, at [facility] in [place], [place], which indicates that she has been [...] in any additional way at phone number [phone]. PHYSICAL EXAMINATION: Essentially unchanged from previous exams. [...] necessary at this point. Lloyd Garcia M.D. Dental Patient Coordinator, Orthopedics and Rehabilitation / [id number] / [id number] / 66947 / cc: Helio Noland MD [address] [place], [place] [address] [place] [address] documented in this encounter Plan of Treatment Not on filedocumented as of this encounter Visit Diagnoses Not on filedocumented in this encounter"
--- OUTSIDE RECORDS SUMMARY | ~2020-05-01 | XMS | Encounter Summary ---
Demographics + + + | Address | [address] | | | [place] [address] | + + + | Home Phone [...] Team Providers + +------+ + | Care Liquid Sugar Fortifier Name | Role | Phone | + [...] as of this encounter Progress Notes Interface, Trail Maintenance Worker In - 05/17/2006 3:10 AM PDTCLINIC DATE: [...] arthroplasty at that point. Lloyd Garcia M.D. Exhibitor Sales, Orthopedics and Rehabilitation / [id number] / [id number] / [id number] / [id number] cc: Ninfa Guillen M.D. [address] [place] [id number] signed by Interface, Trail Maintenance Worker In at 05/17/2006 3:1 0 AM PDTInterface, Trail Maintenance Worker In - 05/17/2006 3:10 AM PDTCLINIC DATE: [...] MD Lloyd Causey M.D. SAMANTHA / S[place] [id number] / [id number] / [id number] / Tdocumented in this encounter Plan of Treatment Not on filedocumented as of this encounter Visit Diagnoses Not on filedocumented in this encounter"
--- OUTSIDE RECORDS SUMMARY | ~2020-05-01 | XMS | Encounter Summary ---
Demographics + + + | Address | [address] | | | [place] [address] | + + + | Home Phone [...] Providers + +------+ + | Care Media Traffic Manager Name | Role | Phone | [...] [facility] | [address] | [place] [address] | | | PATHOLOGY | [address] | | | + + + + + | [facility] | [address] [place] [address] [address] | [place] [address] | | | PATHOLOGY | [address] [...] | | | | | | [facility] | | | | | | [facility]. | | | | + + + + + + + + | Specimen | + + | | + + + + + + + | Performing | Address | City/State/Zipcode | Phone Number | | Organization | | | | + + + + + | [facility] | [address] | [place] [address] | | | LABORATORY | | | [...] + + + + + | [facility] | [address] | [place] [address] | | | PATHOLOGY | [address] | | | + + + + + | [facility] | [facility] [address] | [place] [address] | | | PATHOLOGY | [address] [...] [facility] | [address] | [place] [address] | | | PATHOLOGY | [address] | | | + + + + + | [facility] | [address] [place] [address] [address] | [place] [address] | | | PATHOLOGY | [address] [...] | | | | | | [facility] | | | | | | [facility]. | | | | + + + + + + + + | Specimen | + + | | + + + + + + + | Performing | Address | City/State/Zipcode | Phone Number | | Organization | | | | + + + + + | [facility] | [address] | [place] [address] | | | LABORATORY | | | [...] + | [facility] DEPARTMENT | [address] | [place] [address] | | | PATHOLOGY | [address] | | | + + + + + | [facility] DEPART[facility] OF | [address] | [place] [address] | | | PATHOLOGY | [address] | | | + + + + + documented in this encounter Visit Diagnoses Not on filedocumented in this encounter"
--- OUTSIDE RECORDS SUMMARY | ~2020-05-01 | XMS | Encounter Summary ---
Demographics + + + | Address | [address] | | | [place] [address] | + + + | Home Phone [...] Team Providers + +------+ + | Care Staffing Recruiter Name | Role | Phone | [...] | SLEEP DISORDER 401 | [address] | | | | | [place] | [place] | | | | | [place] [address] | [id number] | | | | | [phone] | | | +--------+--------+ + + + [...] [place] | | | | | | [address] | | | | | | | | +--------+---------+ + + + documented as of this encounter Visit Diagnoses + + | Diagnosis | + + | Obstructive sleep apnea (adult) (pediatric) - Primary | + + documented in this encounter"
--- OUTSIDE RECORDS SUMMARY | ~2020-05-01 | XMS | Encounter Summary ---
Demographics + + + | Address | [address] | | | [place] [address] | + + + | Home Phone [...] Providers + +------+ + | Care Director Employment Name | Role | Phone | + [...] | | | | Mailcode: PV430 | [place], [place] | | | | | [facility] | [address] | | | | | [place], [place] | [phone] | | | | | [address] | | | | | | [phone] | | | +--------+ + + + [...]
--- OUTSIDE RECORDS SUMMARY | ~2020-05-01 | XMS | Encounter Summary ---
Demographics + + + | Address | [address] | | | [place] [address] | + + + | Home Phone [...] Team Providers + +------+ + | Care Yardage Caller Name | Role | Phone | + [...] of this encounter Progress Notes Interface, Field Representatives Director In - 09/15/2006 5:11 AM PSTCLINIC [...] M.D. Lloyd Garcia MD LLP:xt7 C: 04/26/99 [facility] cc: Matthew Garcia MD [address] [place], [place] [address]Tqhvvrcosdhyyg signed by Interface, Field Representatives Director In at 09/15/2006 5:11 AM PSTInterface, Field Representatives Director In - 09/13/2006 3:12 AM PSTCLINIC [...] evaluation and treatment recommendations. Lloyd Garcia M.D., Drapery Cutter Machine, Orthopedics and Rehabilitation AH:x12 Electronically signed by Bill, Field Representatives Director In at 1 11/14/2005 3:12 AM PSTdocumented in this encounter Plan of Treatment Not on filedocumented as of this encounter Visit Diagnoses Not on filedocumented in this encounter"
--- OUTSIDE RECORDS SUMMARY | ~2020-05-01 | XMS | Clinical Summary ---
Demographics + + + | Address | [address] | | | [place] [address] | + + + | Home Phone [...] Providers + +------+ + | Care Optometric Technologist Name | Role | Phone | + +------+ + | JenkinsMarta jackson FARMWORKER GENERAL | PCP | | + +------+ + Source Comments LION is fully live on both [facility] Ambulatory and [facility] InPatient.[facility] Allergies + + + + + + [...] | | + + + +---------+------+------+-------+ | Thorp-3 Fatty | Take by mouth. | | [...] | | | + +--------+ +--------+-------+---------+--------+ | SUPERVISOR [employer]AK[employer] MEDICAID | SUPERVISOR COREMAKER | xxxxxxxx | 06/01/20 | | | [...] gigi | | | 7 (Home) | [address] | + +--------+ +--------+ + + | Shelby Galdamez | Third | Self | [birth year] | [address] | | | [employer] Party | | 1960 | [phone] | [address] [place] | | | Liabil | | | 7 (Home) | [address] | | | ity | | | | | + +--------+ +--------+ + + Advance Directives + + + + + | Type | Date Recorded | Patient | Explanation | | | | Log Haul Operator | | + + + + + | Advance | | | | | Directives and | | | | | Living Will | | | | + + + + + | Power of | | | | | Associate Chemist | | | | + + + [...]
--- OUTSIDE RECORDS SUMMARY | ~2020-05-01 | XMS | Encounter Summary ---
Demographics + + + | Address | [address] | | | [place] [address] | + + + | Home Phone [...] Providers + +------+ + | Care Taxi Truck Driver Name | Role | Phone [...] as of this encounter Progress Notes Interface, Founder And President In - 02/27/2006 3:05 AM PDTClinic Date: [...] M.D. Lloyd Garcia M.D. RT / HS [id number] / [id number] / [id number] / 73827 Watt, Founder And President In - 02/27/2006 3:05 AM PDTClinic Date: [...] is any deep infection. Lloyd Garcia M.D. Universal Grinder Set Up Operator Orthopedics and Rehabilitation Jackelyn A [id number] cc: Ninfa Barrientos MD [address] [place] [address]Igsznobdvuwgrx signed by Interface, Founder And President In at 6 3:05 AM PDTdocumented in this encounter Plan of Treatment Not on filedocumented as of this encounter Visit Diagnoses Not on filedocumented in this encounter"
--- OUTSIDE RECORDS SUMMARY | ~2020-05-01 | XMS | Encounter Summary ---
Demographics + + + | Address | [address] | | | [place] [address] | + + + | Home Phone [...] Providers + +------+ + | Care Poultry Field Service Technician Name | Role | Phone [...] Pavilion | | | | | | [place], [place] | | | | | | [address] | | | | | | [phone] | | | +--------+ + + + [...] + + | Performing | Address | City/State/[facility] | Phone Number | | [...]
--- OUTSIDE RECORDS SUMMARY | ~2020-05-01 | XMS | Encounter Summary ---
Demographics + + + | Address | [address] | | | [place] [address] | + + + | Home Phone [...] Team Providers + +------+ + | Care Driver Operator Name | Role | Phone | [...] Pavilion | | | | | | [place], [place] | | | | | | [address] | | | | | | [phone] | | | +--------+ + + + [...] | + + + + + | [facility] | [address] | [place] [address] | | | LABORATORY | | | [...] | [facility] | [address] [facility] | [place] [address] | | | PATHOLOGY | [address] | | | + + + + + | [facility] DEPART[facility] | [address] [place] [address] | [place] [address] | | | PATHOLOGY | [address] [...] | + + + + + | [facility] | [address] | [place] [address] | | | PATHOLOGY | [address] | | | + + + + + | [facility] DE[facility] OF | [address] | [place] [address] | | | PATHOLOGY | [address] [...] [facility] | [address] | [place] [address] | | | PATHOLOGY | [address] | | | + + + + + | [facility] | [address] | [place] [address] | | | PATHOLOGY | [address] [...]
--- OUTSIDE RECORDS SUMMARY | ~2020-05-01 | XMS | Encounter Summary ---
Demographics + + + | Address | [address] | | | [place] [address] | + + + | Home Phone [...] Providers + +------+ + | Care Gore Inserter Name | Role | Phone | + +------+ + PCP | Unavailable | + +------+ + Encounter Details +--------+ + + + + | Date | Type | Department | Care Team | Description | +--------+ + + + + | 12/23/ | Outboard Motor Assembler | Orthopaedics at | Gino Baker MD | Osteoarthritis of | | 2006 | | [facility] [address] | [address] | Hip (Primary Dx) | | | | [address] | [place] | | | | | Mailcode: PV430 | [place] [address] | | | | | [facility] | | | | | | [place], [place] | | | | | | [address] | | | | | | [phone] | | | +--------+ + + + [...]
--- OUTSIDE RECORDS SUMMARY | ~2020-05-01 | XMS | Encounter Summary ---
Demographics + + + | Address | [address] | | | [place] [address] | + + + | Home Phone [...] Team Providers + +------+ + | Care Wedding Coordinator Name | Role | Phone | [...] Pavilion | | | | | | [place], [place] | | | | | | [address] | | | | | | [phone] | | | +--------+ + + + [...] of | | | | | | Yoth-Sthxknhflxv-yfxtfdt | | | | | | jose. [...]
--- OUTSIDE RECORDS SUMMARY | ~2020-05-01 | XMS | Encounter Summary ---
Demographics + + + | Address | [address] | | | [place] [address] | + + + | Home Phone [...] Providers + +------+ + | Care Access Services Representative Name | Role | Phone [...] as of this encounter Progress Notes Interface, Bulk Clerk In - 07/10/2006 1:00 AM PDTCLINIC [...] and attributes this to the radiologist Dr. eWst who made an effort to inject as [...] right total hip replacement. Lloyd Garcia M.D. Music Sound Light Technician Orthopedic and Rehabilitation / [id number] / [id number] / [id number] / cc: JILLIAN TODD MD [address] [address]Zugsydgvemfvyy signed by Interface, Bulk Clerk In at 07/10/2006 1:0 0 AM PDTdocumented in this encounter Plan of Treatment Not on filedocumented as of this encounter Visit Diagnoses Not on filedocumented in this encounter"
--- OUTSIDE RECORDS SUMMARY | ~2020-05-01 | XMS | Encounter Summary ---
Demographics + + + | Address | [address] | | | [place] [address] | + + + | Home Phone [...] Providers + +------+ + | Care Community Outreach Coordinator Name | Role | Phone | [...] of this encounter Progress Notes Interface, Assistant Superintendent For Curriculum In - 06/11/2006 3:03 AM PDT [place] [facility] and [place] [address] [place], [place] [address] FAX Department of Orthopaedics, [facility] [id number] November 27, 2001 Kalyan Wu M.D. [facility]-Orthopedics PV 430 RE: SHELBY GALDAMEZ MR #: [id number] DOS: 11/27/2001 Dear Nsair: Thank you for sending over Ms. Galdamez [...] the low back several years ago in [place], [place] which she described as showing deteriorating vertebrae at "T11-T12." She has not had any physical therapy for back. She does work out at a gym under the direction of physical therapy in [place]. She would like to start some exercises [...] contact me. Sincerely yours, Vince Krishna M.D. [facility] / [id number] / [id number] / [id number] / [id number] cc: Lloyd Garcia M.D. Orthopedics PV 430 docume nted in this encounter Plan of Treatment Not on filedocumented as of this encounter Visit Diagnoses Not on filedocumented in this encounter
--- OUTSIDE RECORDS SUMMARY | ~2020-05-01 | XMS | Encounter Summary ---
Demographics + + + | Address | [address] | | | [place] [address] | + + + | Home Phone [...] Providers + +------+ + | Care Home Demonstration Agent Name | Role | Phone | [...] [facility] | | | | | | [address] | | | | | | [address] [facility] | | | | | | [place], [address] Floor | | | | | | [place], [place] | | | | | | [address] | | | | | | [phone] | | | +--------+ + + + [...]
--- OUTSIDE RECORDS SUMMARY | ~2020-05-01 | XMS | Encounter Summary ---
Demographics + + + | Address | [address] | | | [place] [address] | + + + | Home Phone [...] Providers + +------+ + | Care News Videographer Name | Role | Phone | + [...] as of this encounter Progress Notes Interface, Kennel Manager In - 02/27/2006 3:05 AM PDTClinic Date: [...] M.D. Lloyd Garcia M.D. RT / HS [id number] / [id number] / [id number] / [id number] Watt, Kennel Manager In - 02/27/2006 3:05 AM PDTClinic Date: [...] is any deep infection. Lloyd Garcia M.D. Veterinary Parasitologist Orthopedics and Rehabilitation Jackelyn A [id number] cc: Ninfa Barrientos MD [address] [place] [address]Tipfblifxqznpu signed by Interface, Kennel Manager In at 6 3:05 AM PDTdocumented in this encounter Plan of Treatment Not on filedocumented as of this encounter Visit Diagnoses Not on filedocumented in this encounter"
--- OUTSIDE RECORDS SUMMARY | ~2020-05-01 | XMS | Encounter Summary ---
Demographics + + + | Address | [address] | | | [place] [address] | + + + | Home Phone [...] Providers + +------+ + | Care Residence Leasing Agent Name | Role | Phone | [...] | Transcriptions | + + | Interface, Supervisor Acoustical Tile Carpenters In - 02/27/2006 3:05 AM PDT Date: [...] | | Malcom GarciaRT/aceD: 09/14/2003T: 09/15/2003 9:10 [id number] | |bellberna. The proximal greater trochanter fragment [...] |RT/magalie | | | | A | |[id number] | + + documented in this encounter Visit Diagnoses Not on filedocumented in this encounter"
--- OUTSIDE RECORDS SUMMARY | ~2020-05-01 | XMS | Encounter Summary ---
Demographics + + + | Address | [address] | | | [place] [address] | + + + | Home Phone [...] Team Providers + +------+ + | Care Counselor Camp Name | Role | Phone | + [...] MED[facility]ENTER | [address] | [place] [address] | | | PATHOLOGY | [address] | | | + + + + + | [facility] | [address] [place] [address] [address] | [place] [address] | | | PATHOLOGY | [address] [...] by | | | | | | [facility] | | | | | | [facility]. | | | | + + + + + + + + | Specimen | + + | | + + + + + + + | Performing | Address | City/State/Zipcode | Phone Number | | Organization | | | | + + + + + | [facility] | [address] | [place] [address] | | | LABORATORY | | | [...] | + + + + + | [facility] | [address] | [place] [address] | | | PATHOLOGY | [address] | | | + + + + + | [facility] | [facility] [address] | [place] [address] | | | PATHOLOGY | [address] [...] MEDICAL CENTER | [address] | [place] [address] | | | PATHOLOGY | [address] | | | + + + + + | [facility] | [address] [place] [address] [address] | [place] [address] | | | PATHOLOGY | [address] [...] by | | | | | | [facility] | | | | | | [facility]. | | | | + + + + + + + + | Specimen | + + | | + + + + + + + | Performing | Address | City/State/Zipcode | Phone Number | | Organization | | | | + + + + + | [facility] | [address] | [place] [address] | | | LABORATORY | | | [...] | [facility] | [address] | [place] [address] | | | PATHOLOGY | [address] | | | + + + + + | [facility] DEPART[facility] OF | [address] | [place] [address] | | | PATHOLOGY | [address] | | | + + + + + documented in this encounter Visit Diagnoses Not on filedocumented in this encounter"
--- OUTSIDE RECORDS SUMMARY | ~2020-05-01 | XMS | Encounter Summary ---
Demographics + + + | Address | [address] | | | [place] [address] | + + + | Home Phone [...] Providers + +------+ + | Care Panel Machine Operator Name | Role | Phone [...] + | 09/26/ | Telephone | [facility] | Ladarius Martínez PA | Other | | 2016 | | SLEEP DISORDER [address] | [address] | | | | | [address] [place] | [place], [place] | | | | | [place] [address] | [address] | | | | | [phone] | | | +--------+ + + + [...] Miscellaneous Notes Telephone Encounter - Maegan Munoz Bathing Suit Maker - 09/27/2016 11:33 AM PSTPatient ca lled back appointment has been scheduled. elephone Encounter - Maegan Munoz Bathing Suit Maker - 09/26/2016 1:12 PM PSTCalled left message [...] [place] | | | | | | [id number] | | | | | | | | +--------+---------+ + + + documented as of this encounter Visit Diagnoses Not on filedocumented in this encounter"
--- OUTSIDE RECORDS SUMMARY | ~2020-05-01 | XMS | Encounter Summary ---
Demographics + + + | Address | [address] | | | [place] [address] | + + + | Home Phone [...] Providers + +------+ + | Care Oil Rig Driller Name | Role | Phone | + +------+ + | Marta Jenkins HOT TAR ROOFER HELPER | PCP | | + +------+ + Encounter Details +--------+ + + + + | Date | Type | Department | Care Team | Description | +--------+ + + + + | 11/19/ | Documentati | Digestive Health | Wanda López ACNP | | | 2019 | on | Center at [facility] [address] | [address] | | | | | Akil Jade [facility] | Roxann Ayala [facility] | | | | | [facility] and | [place] [address] | | | | | Healing, [address] | [phone] | | | | | [place], [place] | | | | | | [address] | | | | | | [phone] | | | +--------+ + + + [...]
--- OUTSIDE RECORDS SUMMARY | ~2020-05-01 | XMS | Encounter Summary ---
Demographics + + + | Address | [address] | | | [place] [address] | + + + | Home Phone [...] Providers + +------+ + | Care Mail Processing Associate Name | Role | Phone | + +------+ + | Travis Mcginnis MD | PCP | | + +------+ + Encounter Details +--------+ + + + + | Date | Type | Department | Care Team | Description | +--------+ + + + + | 10/14/ | Results | LAB REFERRED TESTS | Other, Faculty | | | 2010 | Only | [address] [facility] | [phone] | | | | | [address] | | | | | | [place] | | | | | | [address] | | | +--------+ + + + [...] + + | [facility] | [address] | [place], [place] | | | CARDIOLOGY | [address] | [address] | | + + + + + documented in this encounter Visit Diagnoses Not on filedocumented in this encounter"
--- OUTSIDE RECORDS SUMMARY | ~2020-05-01 | XMS | Encounter Summary ---
Demographics + + + | Address | [address] | | | [place] [address] | + + + | Home Phone [...] + + + + | 10/13/ | Industrial Retrofit Designer | Orthopaedics at | Tesfaye Saenz | Osteoarthritis of | | 2008 | | [address] | [address] | Hip (Primary Dx) | | | | [address] | | | | | | Mailcode: PV430 | | | | | | [facility] | | | | | | [place], [place] | | | | | | [address] | | | | | | [phone] | | | +--------+ + + + [...]
--- OUTSIDE RECORDS SUMMARY | ~2020-05-01 | XMS | Encounter Summary ---
Demographics + + + | Address | [address] | | | [place] [address] | + + + | Home Phone [...] Providers + +------+ + | Care Secondary Art Teacher Name | Role | Phone | [...] as of this encounter Progress Notes Interface, Board Mixer Tender In - 07/14/2006 1:10 AM PDTCLINIC [...] in the system. Dariana Champion M.A. / [id number] / 135100 / 52184 / Watt Board Mixer Tender In - 07/10/2006 1:00 AM PDTCLINIC DATE: [...] insurance at and spoke with Timbo. This retail account representative stated that this prescription had been [...] over the phone. Dariana Champion M.A. / [id number] / 468451 / 38605 / Tdocumented in this encounter Plan of Treatment Not on filedocumented as of this encounter Visit Diagnoses Not on filedocumented in this encounter"
--- OUTSIDE RECORDS SUMMARY | ~2020-05-01 | XMS | Encounter Summary ---
Demographics + + + | Address | [address] | | | [place] [address] | + + + | Home Phone [...] Providers + +------+ + | Care Automotive Fleet Supervisor Name | Role | Phone | [...] + + | 09/24/ | Refill | [facility] | Xiang Sepulveda, | Medication Refill | | 2019 | | [facility] | DO [address] | | | | | [address]OLOGY [address] | [place], [place] | | | | | [address] | [address] | | | | | [place], [place] | | | | | | [address] | | | | | | [phone] | | | +--------+--------+ + + + [...] Miscellaneous Notes Telephone Encounter - Antonella Sprague Pbx Mechanic - 09/24/2019 10:23 AM PSTKevyn e given to Dr. Sepulveda. Electronically signed by Antonella Sprague Pbx Mechanic at 10:23 AM PSTdocumented in this encounter Plan of Treatment +--------+---------+ + + + | Date | Type | Specialty | Care Team | Description | +--------+---------+ + + + | 05/23/ | Office | Pain Medicine | Xiang Sepulveda, | | | 2019 | Visit | | DO [address] | | | | | | [place] | | | | | | [address] | | | | | | | [...]
--- OUTSIDE RECORDS SUMMARY | ~2020-05-01 | XMS | Encounter Summary ---
Demographics + + + | Address | [address] | | | [place] [address] | + + + | Home Phone [...] Providers + +------+ + | Care Laboratory Monitor Name | Role | Phone | [...] + | 04/24/ | Office | [facility] | Ladarius Martínez PA | MAMADOU on CPAP (Primary | | 2012 | Visit | SLEEP DISORDER [address] | [address] | Dx) | | | | [address] [place] | [place], [place] | | | | | [place] [address] | [address] | | | | | [phone] | | | +--------+---------+ + + + [...] Ravi obtained from: [facility] [place] pressure is: 9 cm ResMed S9: Pressure: [...] to go to [facility] in [place] to get a fitting for her mask that will allow it to connect to her hose properly or make an adjustmen t to the mask that keep it connected. I will follow up again in 1 month, sooner prn. Fifteen minutes were spent mexz-tx-vvvv, wi th the majority of time spent [...] [place] | | | | | | [address] | | | | | | | | +--------+---------+ + + + documented as of this encounter Visit Diagnoses + + | Diagnosis | + + | MAMADOU on CPAP - Primary Obstructive sleep apnea (adult) (pediatric) | + + documented in this encounter"
--- OUTSIDE RECORDS SUMMARY | ~2020-05-01 | XMS | Encounter Summary ---
Demographics + + + | Address | [address] | | | [place] [address] | + + + | Home Phone [...] Team Providers + +------+ + | Care Bowling Pin Refinisher Name | Role | Phone | + [...]
--- OUTSIDE RECORDS SUMMARY | ~2020-05-01 | XMS | Encounter Summary ---
Demographics + + + | Address | [address] | | | [place] [address] | + + + | Home Phone [...] Providers + +------+ + | Care General Ledger Accountant Name | Role | Phone | [...] [place] | | | | | [place] [address] | [place] [address] | | | | | [phone] | [phone] | | | | | | | [...] [place] | | | | | | [address] | | | | | | | | +--------+---------+ + + + documented as of this encounter Visit Diagnoses Not on filedocumented in this encounter"
--- OUTSIDE RECORDS SUMMARY | ~2020-05-01 | XMS | Encounter Summary ---
Demographics + + + | Address | [address] | | | [place] [address] | + + + | Home Phone [...] Providers + +------+ + | Care Transport Nurse Name | Role | Phone | [...] | | | Surgery [address] | [place], [place] | | | | | [address] | [address] | | | | | Mailcode: [id number] | [phone] | | | | | [facility] | | | | | | [place], [place] | | | | | | [address] | | | | | | [phone] | | | +--------+ + + + [...] + + + | [facility] | [address] | [place] [address] | | | LABORATORY | | | [...] + + + + + | [facility] | [address] | [place] [address] | | | PATHOLOGY | [address] | | | + + + + + | [facility] | [address] | [place] [address] | | | PATHOLOGY | [address] [...] DEPARTMENT OF | [address] | [place] [address] | | | PATHOLOGY | [address] | | | + + + + + | [facility] DEPARTMENT OF | [address] | [place] [address] | | | PATHOLOGY | [address] [...] + + + + + | [facility] DEPARTMENT OF | [address] | [place] [address] | | | PATHOLOGY | [address] | | | + + + + + | [facility] DEPARTMENT OF | [address] | [place] [address] | | | PATHOLOGY | [address] | | | + + + + + documented in this encounter Visit Diagnoses Not on filedocumented in this encounter
--- OUTSIDE RECORDS SUMMARY | ~2020-05-01 | XMS | Encounter Summary ---
Demographics + + + | Address | [address] | | | [place] [address] | + + + | Home Phone [...] Providers + +------+ + | Care Solar Sales Assessor Name | Role | Phone | + [...] this encounter Progress Notes Interface, Workers Compensation Attorney In - 04/28/2005 7:30 PM PDTClinic Date: [...] Mariella Camacho P.A.-C. Lloyd Garcia M.D. / [id number] / [id number] / [id number] / [id number] Tdocumented in this encounter Plan of Treatment Not on filedocumented as of this encounter Visit Diagnoses Not on filedocumented in this encounter"
--- OUTSIDE RECORDS SUMMARY | ~2020-05-01 | XMS | Encounter Summary ---
Demographics + + + | Address | [address] | | | [place] [address] | + + + | Home Phone [...] Providers + +------+ + | Care Operations Intelligence Superintendent Name | Role | Phone | [...] | | Mailcode: [id number] | [facility] [place] | | | | | [facility] | [address] | | | | | [place], [place] | [phone] | | | | | [address] | | | | | | [phone] | | | +--------+ + + + [...]
--- OUTSIDE RECORDS SUMMARY | ~2020-05-01 | XMS | Encounter Summary ---
Demographics + + + | Address | [address] | | | [place] [address] | + + + | Home Phone [...] Providers + +------+ + | Care Senior Maintenance Machinist Name | Role | Phone | + +------+ + | Yuki Pantoja MD | PCP | | + +------+ + Encounter Details +--------+ + + + + | Date | Type | Department | Care Team | Description | +--------+ + + + + | 06/21/ | Floor Polisher | Orthopaedics at | Kalyan Colby MD | Osteoarthritis of | | 2008 | | [facility] [address] | [address] | Hip (Primary Dx) | | | | [address] | [address] | | | | | Mailcode: PV430 | [place], [place] | | | | | [facility] | [address] | | | | | [place], [place] | [phone] | | | | | [address] | | | | | | [phone] | | | +--------+ + + + [...] X-RAY HIP 2 | Med Rec No: [id number] | | | | | VIEWS | Name: | | | | | RIGHT W/ | SHELBY GALDAMEZ | | | | | PELVIS 1 | Birthday: 1960 | | | | | VIEW | Sex: F | | | | | | Alias:Patient Location: | | | | | | [id number]: Outpatient | | | | | | [...] # | | | | | | [id number]:PELVIS | | | | | | ONE [...] MOSHE | | | | | | Malocm FLOWERSSTATUS | | | | | | [...]
--- OUTSIDE RECORDS SUMMARY | ~2020-05-01 | XMS | Encounter Summary ---
Demographics + + + | Address | [address] | | | [place] [address] | + + + | Home Phone [...] Team Providers + +------+ + | Care Vortex Operator Name | Role | Phone | [...] as of this encounter Progress Notes Interface, Oyster Tonger In - 08/28/2006 3:05 AM PSTCLINIC DATE: [...] to Dr. Gant. Benson Cooper M.D. / [id number] / [id number] / [id number] / 22832 C: 11/27/1999 kavita cc: Helio Noland M.D. [facility] [address] Lloyd Garcia M.D. Department of Orthopedics documented in this encounter Plan of Treatment Not on filedocumented as of this encounter Visit Diagnoses Not on filedocumented in this encounter"
--- OUTSIDE RECORDS SUMMARY | ~2020-05-01 | XMS | Encounter Summary ---
Demographics + + + | Address | [address] | | | [place] [address] | + + + | Home Phone [...] Providers + +------+ + | Care Wind Power Project Manager Name | Role | Phone [...] | unspecified | [address] | [address] [place], | | | | | whether | [place], [place] | [place] | | | | | generalized | [address] | [address] | | | | | or | Phone: | Phone: | | | | | localized, | [phone] | [phone] | | | | | pelvic | Fax: | Fax: | | | | | region and | [phone] | [phone] | | | | | thigh | | | | | | | Osteoarthrit | | | | | | | is of Hip | | | | | | | Procedures | | | | | | | CA TOTAL HIP | | | | | | | | | | | | | | ARTHROPLASTY | | | | | | | CA | | | | | | | RECONSTRUC | | | | | | | HIP | | | | | | | SOCKET,RESEC | | | | | | | FEM HEAD | | | | | | | CA REMOVAL | | | | | | | OF ISCHIAL | | | | | | | BURSA CA | | | | | | | [...] Pavilion | | | | | | [place], [place] | | | | | | [address] | | | | | | [phone] | | | +--------+---------+ + + + [...] charted by JORDY Germain. KALYAN COLBY MD [facility] [address] [place] [address] Mailcode: [id number] [place] [address] Tesfaye Haskins PA-C - 10/14/2008 [...] is being worked up now by a shot fireman for this issue. OBJECTIVE: - On examination [...]
--- OUTSIDE RECORDS SUMMARY | ~2020-05-01 | XMS | Encounter Summary ---
Demographics + + + | Address | [address] | | | [place] [address] | + + + | Home Phone [...] Providers + +------+ + | Care Glass Embosser Name | Role | Phone | + [...] | Transcriptions | + + | Interface, Fence Rider In - 03/06/2006 1:10 AM PDT Date: | | 08/16/2003Attending Surgeon: Lloyd Garcia M.D.Barge Worker(s): | | Benson Boone M.D.Preoperative Diagnosis:Right [...] cc per Arreaga drain to | | 8-Albanian tubes to 1 median Hemovac suctioncanister.Postoperative Plan:Ancef [...] brought to | | OperatingRoom #6 at [facility] Operating Room suite.She | | was placed [...] Vicryl mattress sutures andaddition | | of ysvppe-cx-pypsx 0 Vicryl. The fascial layer with kezhljcakfbcbsyny-ae-oflyq 0 | | Vicryl sutures. Fadumo's fascia [...] to | | leaving the room.Lloyd Garcia M.D.Content Analyst, Orthopedics and | | Rehabilitation / [id number] / [id number] / [id number] / [id number]: 08/16/2003T: | | 08/16/2003cc:Ninfa Guillen M.D.[address] [place] [address] | | | |The posterior superior iliac [...] Vicryl mattress sutures and | |addition of xsuljo-al-eyznq 0 Vicryl. The fascial layer with interrupted | |kdguqm-iy-rvtbo 0 Vicryl sutures. Fadumo's fascia was closed [...] | | | |Lloyd Garcia M.D. | |Content Analyst, Orthopedics and Rehabilitation | | | | / | |[id number] / [id number] / [id number] / 35562 | | | | | | | |cc: | | | |Ninfa Guillen M.D. | |[address], | |[place] [address] | + + documented in this encounter Visit Diagnoses Not on filedocumented in this encounter"
--- OUTSIDE RECORDS SUMMARY | ~2020-05-01 | XMS | Encounter Summary ---
Demographics + + + | Address | [address] | | | [place] [address] | + + + | Home Phone [...] Team Providers + +------+ + | Care Nozzleman Name | Role | Phone | + [...] | | | | | [address] [place], | | | | | | [place] [address] | | | | | | [phone] | | | | | | | [...] | | | | | | 09/25/2003 [id number] | | | | | | hours [...] + + + | [facility] | [address] | [place] [address] | | | LABORATORY | | | [...] + | [facility] DEPARTMENT | [address] | [place] [address] | | | PATHOLOGY | [address] | | | + + + + + | [place] DEPARTMENT OF | [address] | [place] [address] | | | PATHOLOGY | [address] [...] | + + + + + | [facility] | [address] | [place] [address] | | | PATHOLOGY | [address] | | | + + + + + | [facility] | [address] | [place] [address] | | | PATHOLOGY | [address] [...] | [facility] | [address] | [place] [address] | | | PATHOLOGY | [address] | | | + + + + + | [facility] | [address] | [place] [address] | | | PATHOLOGY | [address] | | | + + + + + documented in this encounter Visit Diagnoses Not on filedocumented in this encounter"
--- OUTSIDE RECORDS SUMMARY | ~2020-05-01 | XMS | Encounter Summary ---
Demographics + + + | Address | [address] | | | [place] [address] | + + + | Home Phone [...] Team Providers + +------+ + | Care Shipwright Apprentice Name | Role | Phone | [...] as of this encounter Progress Notes Interface, Radiotelegraph Operator In - 06/11/2006 3:03 AM PDT [place] [facility] and [place] [address] [place], [place] [address] FAX Department of Orthopaedics, [facility] [id number] November 27, 2001 Kalyan Wu M.D. [facility]-Orthopedics [address] 430 RE: SHELBY [...] the low back several years ago in [place], [place] which she described as showing deteriorating vertebrae at "T11-T12." She has not had any physical therapy for back. She does work out at a gym under the direction of physical therapy in [place]. She would like to start some exercises [...] contact me. Sincerely yours, Vince Krishna M.D. [facility] / [id number] / [id number] / [id number] / [id number] cc: Lloyd Garcia M.D. Orthopedics [address] 430 docume nted in this encounter Plan of Treatment Not on filedocumented as of this encounter Visit Diagnoses Not on filedocumented in this encounter
--- OUTSIDE RECORDS SUMMARY | ~2020-05-01 | XMS | Encounter Summary ---
Demographics + + + | Address | [address] | | | [place] [address] | + + + | Home Phone [...] Team Providers + +------+ + | Care Trouble Tracer Name | Role | Phone | + [...] as of this encounter Progress Notes Interface, Binding Bench Worker In - 11/23/2005 2:04 AM PST [id number] [facility] Date: 11/07/2005 Clinic: Orthopaedics Shelby Gal[place] is a 46-year-old woman seen for evaluation of pain in the right hip and back. She provides a history that she was operated on in [address] Garcia at [facility] for osteoarthritis. She apparently had [...] given a request to take home to [place] to see if she can get into [...] could formulate some plans. Her phone is #[phone]. Gino Baker M.D. KEE / SALEEM [id number] / [id number] / [id number] / [id number] cc: Quintin Acevedo [facility] [address] [place] [address] Electronically signed by Gino Baker 11-22-2005 02:58:59 PM documented i n this encounter Plan of Treatment Not on filedocumented as of this encounter Visit Diagnoses Not on filedocumented in this encounter"
--- OUTSIDE RECORDS SUMMARY | ~2020-05-01 | XMS | Encounter Summary ---
Demographics + + + | Address | [address] | | | [place] [address] | + + + | Home Phone [...] Providers + +------+ + | Care Novelty Worker Name | Role | Phone | [...] [place] | | | | | | [facility] and | | | | | | Counseling [address] | | | | | | [address] [place], | | | | | | [place] [address] | | | | | | [phone] | | | | | | | [...] | | | | | | 09/25/2003 [id number] | | | | | | hours [...] +---------+ + + | [facility] DEPARTMENT OF | | | | [...] + + + | [facility] | [address] | [place] [address] | | | LABORATORY | | | [...] + + | [facility] DEPARTMENT | [address] | [place] [address] | | | PATHOLOGY | [address] | | | + + + + + | [place] DEPARTMENT OF | [address] | [place] [address] | | | PATHOLOGY | [address] [...] [facility] | [address] | [place] [address] | | | PATHOLOGY | [address] | | | + + + + + | [facility] | [address] | [place] [address] | | | PATHOLOGY | [address] [...] + + + | [facility] | [address] | [place] [address] | | | PATHOLOGY | [address] | | | + + + + + | [facility] | [address] | [place] [address] | | | PATHOLOGY | [address] | | | + + + + + documented in this encounter Visit Diagnoses Not on filedocumented in this encounter"
--- OUTSIDE RECORDS SUMMARY | ~2020-05-01 | XMS | Encounter Summary ---
Demographics + + + | Address | [address] | | | [place] [address] | + + + | Home Phone [...] Team Providers + +------+ + | Care Spd Tech Name | Role | Phone | [...] as of this encounter Progress Notes Interface, Freight Rate Clerk In - 04/28/2005 10:57 PM PDTClinic Date: [...] not need a refill. Lloyd Garcia M.D. Director Learning Services of Orthopedics and Rehabilitation / [id number] / [id number] / [id number] / 64343 cc: Leonel Floyd M.D. [address] [place], [place] [address]Iqatpkuqqdmosz signed by Interface, Freight Rate Clerk In at 04/28/2005 10:57 PM PDTdocumented in this encounter Plan of Treatment Not on filedocumented as of this encounter Visit Diagnoses Not on filedocumented in this encounter"
--- OUTSIDE RECORDS SUMMARY | ~2020-05-01 | XMS | Encounter Summary ---
Demographics + + + | Address | [address] | | | [place] [address] | + + + | Home Phone [...] Team Providers + +------+ + | Care Booster Pump Oiler Name | Role | Phone [...] as of this encounter Progress Notes Interface, Carpet Installer Helper In - 08/28/2006 3:05 AM PSTCLINIC DATE: [...] clinical evaluation. Benson Cooper M.D. / SALEEM [id number] / [id number] / [id number] / cc: Lloyd Garcia M.D. documented in this encounter Plan of Treatment Not on filedocumented as of this encounter Visit Diagnoses Not on filedocumented in this encounter"
--- OUTSIDE RECORDS SUMMARY | ~2020-05-01 | XMS | Encounter Summary ---
Demographics + + + | Address | [address] | | | [place] [address] | + + + | Home Phone [...] + +------+ + | Care Direct Marketing Analyst Name | Role | Phone | [...] | | [address] | [address] [place], | | | | | Mailcode: PV430 | [place] [address] | | | | | [facility] | | | | | | [place] | | | | | | [address] | | | | | | [phone] | | | +--------+ + + + [...]
--- OUTSIDE RECORDS SUMMARY | ~2020-05-01 | XMS | Encounter Summary ---
Demographics + + + | Address | [address] | | | [place] [address] | + + + | Home Phone [...] Providers + +------+ + | Care Accounting Technician Name | Role | Phone | [...] | Procedures | [address] | [place], | | | | | CONSULT TO | [place], [place] | [place] | | | | | ORTHOPEDICS | | | | | | | AND | Phone: | Phone: | | | | | REHABILITATI | [phone] | [phone] | | | | | ON | Fax: | Fax: | | | | | | [phone] | [phone] | +--------+--------+ + + + + Diagnostic [...] | | y | [address] | | | | | Procedures | Rox[place]ala | Research | | | | | MRI SPINE | [place], [place] | Center | | | | | LUMBAR WO | | [place], [place] | | | | | CONT | Phone: | [address] | | | | | | [phone] | Phone: | | | | | | Fax: | [phone] | | | | | | [phone] | Fax: | | | | | | | [phone] | +--------+--------+ + + + + Reason [...] | | | Orthopedics | | | [address] [facility] | | | | | | | [address] | | | | | | | [place], | | | | | | | [place] | | | | | | | [address] | | | | | | | Phone: | | | | | | | [phone] | | | | | | | Fax: | | | | | | | [phone] | +--------+--------+ + + + + Encounter [...] | | | | Mailcode: PV430 | [place], [place] | | | | | [facility] | [address] | | | | | [place], [place] | [phone] | | | | | [address] | | | | | | [phone] | | | +--------+---------+ + + + [...] and plan of care. TYRONE COLBY MD [facility] [address] [place] [address] Mailcode: [id number] Physicians [facility] [address] Taz Grider M D - 07/06/2010 9:32 [...] of | | | | | | R5tmdbmhsh/superior | | | | | | corner, [...]
--- OUTSIDE RECORDS SUMMARY | ~2020-05-01 | XMS | Encounter Summary ---
Demographics + + + | Address | [address] | | | [place] [address] | + + + | Home Phone [...] Team Providers + +------+ + | Care Softball Umpire Name | Role | Phone | + [...] as of this encounter Progress Notes Interface, Shelver In - 08/20/2006 3:01 AM PSTCLINIC DATE: [...] primary care provider. Alpa Ritter LPN / [id number] / [id number] / [id number] / Tdocumented in this encounter Plan of Treatment Not on filedocumented as of this encounter Visit Diagnoses Not on filedocumented in this encounter"
--- OUTSIDE RECORDS SUMMARY | ~2020-05-01 | XMS | Encounter Summary ---
Demographics + + + | Address | [address] | | | [place] [address] | + + + | Home Phone [...] Team Providers + +------+ + | Care Macaroni Maker Name | Role | Phone | [...] | | | | | (sacroiliac) | [facility], | | | | | joint | Rd | 10th Floor | | | | | inflammation | [place], [place] | [place], [place] | | | | | ([facility]) | [address] | [address] | | | | | Procedures | | Phone: | | | | | CT INJ | | [phone] | | | | | SACROILIAC | | Fax: | | | | | JOINT | | [phone] | | | | | W/NEEDLE | [...] | | | | | | [address] | | | | | | [place], [place] | | | | | | [address] | | | | | | [phone] | | | +--------+ + + + [...] | + + + +---------+--------+ + | Marceline-3 Fatty | Take by mouth. | | [...] None. | | | | | | Correctional Lieutenant: Dr. Moss, | | | | | | vice president of manufacturing. | | | | | | Tile Grinder: | | | | | | [...] the | | | | | | net application support specialist. Nuclear Monitoring Technician | | | | | | imaging [...]
--- OUTSIDE RECORDS SUMMARY | ~2020-05-01 | XMS | Encounter Summary ---
Demographics + + + | Address | [address] | | | [place] [address] | + + + | Home Phone [...] Providers + +------+ + | Care Water Treatment Plant Mechanic Name | Role | Phone | [...] | | | [address] | [address] [place], [place] | | | | | Mailcode: [id number] | [address] | | | | | [facility] | | | | | | [place], [place] | | | | | | [address] | | | | | | [phone] | | | +--------+ + + + [...] 10/30/99 | | | | | | [id number] hours. | | | | | | Dictated 11/01/99. | | | | | | FINDINGS: There is a | | | | | | shallow right rotatory | | | | | | lumbar convexity. | | | | | | [id number] S1 flexion | | | | | [...]
--- OUTSIDE RECORDS SUMMARY | ~2020-05-01 | XMS | Encounter Summary ---
Demographics + + + | Address | [address] | | | [place] [address] | + + + | Home Phone [...] Team Providers + +------+ + | Care Stars Analytical Lead Name | Role | Phone | [...] Pavilion | | | | | | [place], [place] | | | | | | [address] | | | | | | [phone] | | | +--------+ + + + [...] near | | | | | | ismv-lusi-ssft | | | | | | appearance [...] | + +---------+ + + | [facility] DEPARTMENT OF | | | | | RADIOLOGY | | | | + +---------+ + + documented in this encounter Visit Diagnoses Not on filedocumented in this encounter"
--- OUTSIDE RECORDS SUMMARY | ~2020-05-01 | XMS | Encounter Summary ---
Demographics + + + | Address | [address] | | | [place] [address] | + + + | Home Phone [...] Providers + +------+ + | Care Financial Supervisor Name | Role | Phone | [...] of this encounter Progress Notes Interface, Electrical Prospecting Operator In - 06/19/2006 1:01 AM PDTCLINIC [...] ALLERGIES: None. SOCIAL HISTORY: She lives in [facility], and she is currently not working. [...] the appointment. Her current phone number is [phone]. At this point, we will not schedule her for a followup until we have these other appointments, and then we will have her followup with . Again, we will forward our recommendations to him. Pricilla Metcalf M.D. Kalyan Wu M.D. [facility] / [id number] / [id number] / [id number] / [id number] cc: Lloyd Garcia M.D. PV-430 docume nted in this encounter Plan of Treatment Not on filedocumented as of this encounter Visit Diagnoses Not on filedocumented in this encounter"
--- OUTSIDE RECORDS SUMMARY | ~2020-05-01 | XMS | Encounter Summary ---
Demographics + + + | Address | [address] | | | [place] [address] | + + + | Home Phone [...] + +------+ + | Care Bench Worker Binding Name | Role | Phone | + +------+ + PCP | Unavailable | + +------+ + Encounter Details +--------+ + + + + | Date | Type | Department | Care Team | Description | +--------+ + + + + | 07/27/ | Agate Setter | Orthopaedics at | Tesfaye Saenz | Osteoarthritis of | | 2007 | | [facility] [address] | MEGAN Evangelista | Hip; Hip Pain | | | | [address] | | | | | | Mailcode: PV430 | | | | | | [facility] | | | | | | [place], [place] | | | | | | [address] | | | | | | [phone] | | | +--------+ + + + [...]
--- OUTSIDE RECORDS SUMMARY | ~2020-05-01 | XMS | Encounter Summary ---
Demographics + + + | Address | [address] | | | [place] [address] | + + + | Home Phone [...] Team Providers + +------+ + | Care China Decorator Name | Role | Phone | + [...] as of this encounter Progress Notes Interface, Artificial Glass Eye Maker In - 08/22/2006 5:13 AM PSTCLINIC DATE: [...] Valium. PHYSICAL EXAMINATION: She ambulates with a xmlnpxiy-hh-ymrouk leg coxalgic gait leaning over the right [...] that they are appropriate. Lloyd Garcia MD Engineer Byproduct Department of Orthopaedics / [id number] / [id number] / [id number] / [id number] C: 01/19/2000 jerman cc: Helio Noland MD [place], [place] [address] [place] [id number] signed by Interface, Artificial Glass Eye Maker In at 08/22/2006 5:13 AM PSTdocumented in this encounter Plan of Treatment Not on filedocumented as of this encounter Visit Diagnoses Not on filedocumented in this encounter"
--- OUTSIDE RECORDS SUMMARY | ~2020-05-01 | XMS | Encounter Summary ---
Demographics + + + | Address | [address] | | | [place] [address] | + + + | Home Phone [...] Team Providers + +------+ + | Care Proposition Player Name | Role | Phone | [...] as of this encounter Progress Notes Interface, Propellant Charge Loader In - 07/14/2006 1:10 AM PDTCLINIC DATE: [...] improve her hip pain. Lloyd Garcia M.D. Infection Prevention Coordinator, Orthopedics and Rehabilitation / [id number] / [id number] / [id number] / [id number] cc: Helio Xie M.D. [place], [place] [address]Gcbpaniogbzepo signed by Interface, Propellant Charge Loader In at 07/14/2006 1:1 0 AM PDTdocumented in this encounter Plan of Treatment Not on filedocumented as of this encounter Visit Diagnoses Not on filedocumented in this encounter"
--- OUTSIDE RECORDS SUMMARY | ~2020-05-01 | XMS | Encounter Summary ---
Demographics + + + | Address | [address] | | | [place] [address] | + + + | Home Phone [...] Providers + +------+ + | Care Financial Planner Name | Role | Phone | + +------+ + PCP | Unavailable | + +------+ + Encounter Details +--------+ + + + + | Date | Type | Department | Care Team | Description | +--------+ + + + + | 06/06/ | Hospital | [facility] | Jared Wood MD | | | 2010 | Encounter | [facility] | [address] | | | | | CENTER [address] | [place], [place] | | | | | [facility] | [address] | | | | | [place], [place] | | | | | | [address] | | | | | | [phone] | | | +--------+ + + + [...] No tobacco or alcohol. She resides in [place]. She states she is over here visiting [...] FILI GALDAMEZ : 58 | Signed MR# [id number] [id number] | ADM 06/06/11 DS 06/06/11 DEP ER | Jared Wood MD | [facility] ES: B R pt [phone] | EMERGENCY CENTER THIS REPORT IS CONFID [...] hydrocodone. Follow up with her doctor in [place]. Heat t o her back alternating with ice. Stretching. Good back mechanics. Activity as tolerated. Re turn to the ER for increased pain, weakness, worsening. Condition on discharge is good. Jared Wood MD MARGO:NLA Job ID:[id number] Doc ID:[id number] cc: Electronically Signed 06/07/11 1307 Jared Wood MD DAWITJulienABEBEFILI Carin Sea : 58 | Signed MR# [id number] ACCT# [id number] | ADM 06/06/11 DS 06/06/11 DEP ER | Jared Wood MD | [facility] ES: B R pt [phone] | EMERGENCY CENTER THIS REPORT IS CONFID [...] [place] | | | | | | [address] | | | | | | | | +--------+---------+ + + + documented as of this encounter Visit Diagnoses Not on filedocumented in this encounter"
--- OUTSIDE RECORDS SUMMARY | ~2020-05-01 | XMS | Encounter Summary ---
Demographics + + + | Address | [address] | | | [place] [address] | + + + | Home Phone [...] Team Providers + +------+ + | Care Gripper Installer Name | Role | Phone | [...] as of this encounter Progress Notes Interface, Conveyor System Operator In - 08/20/2006 3:01 AM PSTCLINIC [...] primary care provider. Alpa Ritter LPN / [id number] / [id number] / [id number] / Tdocumented in this encounter Plan of Treatment Not on filedocumented as of this encounter Visit Diagnoses Not on filedocumented in this encounter"
--- OUTSIDE RECORDS SUMMARY | ~2020-05-01 | XMS | Encounter Summary ---
Demographics + + + | Address | [address] | | | [place] [address] | + + + | Home Phone [...] Team Providers + +------+ + | Care Mass Communications Instructor Name | Role | Phone [...] as of this encounter Progress Notes Interface, Gastroenterologist In - 04/28/2005 7:30 PM PDTClinic Date: [...] followup is scheduled today. Lloyd Garcia M.D. Injection Molder, Orthopedics and Rehabilitation / [id number] / [id number] / [id number] / [id number] cc: Ninfa Guillen M.D. [address] [place] [address]Irrpypmfkcpxwz signed by Interface, Gastroenterologist In at 04/28/2005 7:3 0 PM PDTdocumented in this encounter Plan of Treatment Not on filedocumented as of this encounter Visit Diagnoses Not on filedocumented in this encounter"
--- OUTSIDE RECORDS SUMMARY | ~2020-05-01 | XMS | Encounter Summary ---
Demographics + + + | Address | [address] | | | [place] [address] | + + + | Home Phone [...] Providers + +------+ + | Care Insurance Salesperson Name | Role | Phone | [...] | | | | due to | [place] | | | | | unspecified | [address] | [address] | | | | | device, | Phone: | Phone: | | | | | implant, and | [phone] | [phone] | | | | | graft | Fax: | Fax: | | | | | | [phone] | [phone] | +--------+--------+ + + + + Encounter [...] | | | [address] | [address] | (Primary Dx) | | | | Loop Physician's | [place], [place] | | | | | [place], 3rd floor | [address] | | | | | [place], [place] | [phone] | | | | | [address] | | | | | | [phone] | | | +--------+---------+ + + + [...] CLINIC FOLLOW UP Primary Care Physician: Carlos [address] [address] Ms. Galdamez presents to Infectious Diseases Clinic [...] 18, a nd was therefore admitted to [facility] out of concern for R hip [...] stable condition on 10/22/2010 to [facility] with OPAT & Orthopedic follow-up planned in 2 weeks ti ar. Interim History obtained 11/17/2010: Ms. Galdamez presents [...] R hip incision has healed very well. [place]cl[place] were removed locally, and there has been [...] as well as in shoes and socks. [place]-3 Fatty Acids-Vitamin E (FISH OIL) 1,000 mg [...] She will travel to her PCP in [place] in 1 weeks time for another PICC [...] a nd follow-up planning. Carolina Putnam PA-C [facility] Department of Infectious Disease Outpatient IV Antibiotic Therapy Clinic (OPAT) Pager ID: [phone] Mail Code C419 [place] [address] documented in th is encounter Plan of [...] | [facility] | [address] | [place] [address] | | | PATHOLOGY | [address] [...] At | + + + | [facility] ([facility]) | [facility] | | [facility] [address] | REGIONAL | | [place] [address] | LABORATORY | + + + + + + + + | Performing | Address | City/State/Zipcode | Phone Number | | Organization | | | | + + + + + | [facility] | [address] | [place] [address] | | | LABORATORY | | | [...] + + | [facility] DEPARTMENT OF | [address] | [place] [address] | | | PATHOLOGY | [address] [...] | | | DEPARTMENT | | | ITALIAN | | | OF | | | [...] DEPARTMENT OF | [address] | [place] [address] | | | PATHOLOGY | [address] [...] COUNSELING CENTER | [address] | [place] [address] | | | PATHOLOGY | [address] | | | + + + + + documented in this encounter Visit Diagnoses + + | Diagnosis | + + | 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
--- OUTSIDE RECORDS SUMMARY | ~2020-05-01 | XMS | Encounter Summary ---
Demographics + + + | Address | [address] | | | [place] [address] | + + + | Home Phone [...] Providers + +------+ + | Care Insurance Specialist Name | Role | Phone | [...] | | [address] | [address] [place], | | | | | Mailcode: PV430 | [place] [address] | | | | | [facility] | | | | | | [place] | | | | | | [address] | | | | | | [phone] | | | +--------+ + + + [...]
--- OUTSIDE RECORDS SUMMARY | ~2020-05-01 | XMS | Encounter Summary ---
Demographics + + + | Address | [address] | | | [place] [address] | + + + | Home Phone [...] Providers + +------+ + | Care Training Facilitator Name | Role | Phone | + +------+ + PCP | Unavailable | + +------+ + Encounter Details +--------+ + + + + | Date | Type | Department | Care Team | Description | +--------+ + + + + | 11/22/ | Results | Orthopaedics at | Peng Muro | | | 2003 | Only | [facility] [address] O[address]i MD,PhD [address] | | | | | [address] | [address] | | | | | Mailcode: PV430 | [place], [place] | | | | | [facility] | [address] | | | | | [place], [place] | [phone] | | | | | [address] | | | | | | [phone] | | | +--------+ + + + [...]
--- OUTSIDE RECORDS SUMMARY | ~2020-05-01 | XMS | Encounter Summary ---
Demographics + + + | Address | [address] | | | [place] [address] | + + + | Home Phone [...] Providers + +------+ + | Care Inside Polisher Name | Role | Phone | [...] | | | | | [address] | | | | | | [place], [place] | | | | | | [address] | | | | | | [phone] | | | +--------+ + + + [...] [place] | | | | | | [address] | | | | | | | | +--------+---------+ + + + documented as of this encounter Visit Diagnoses Not on filedocumented in this encounter
--- OUTSIDE RECORDS SUMMARY | ~2020-05-01 | XMS | Encounter Summary ---
Demographics + + + | Address | [address] | | | [place] [address] | + + + | Home Phone [...] Providers + +------+ + | Care Process Development Associate Name | Role | Phone | [...] Procedures | [address] | Roxann Ayala [facility] | | | | | CT INJ | Roxann Ayala [facility], | | | | | SACROILIAC | [place], [place] | 10th Floor | | | | | JOINT | [address] | [place], [place] | | | | | W/NEEDLE | Phone: | [phone] | | | | | PLCMT | [phone] | Phone: | | | | | | Fax: | [phone] | | | | | | [phone] | Fax: | | | | | | | [phone] | +--------+--------+ + + + + Reason [...] | | | | | | | [address] | | | | | | | Phone: | | | | | | | [phone] | | | | | | | Fax: | | | | | | | [phone] | +--------+--------+ + + + + Encounter [...] | | | | Mailcode: PV430 | [place], [place] | | | | | [facility] | [address] | | | | | [place], [place] | [phone] | | | | | [address] | | | | | | [phone] | | | +--------+---------+ + + + [...] SACROILIAC JOINT W/NEEDLE PLCMT (10/12/2009 10:08 AM [facility]) + + + + + + [...] | | | | | | the field support technician. | | | | | | Sas Programmer imaging was | | | | | [...]
--- OUTSIDE RECORDS SUMMARY | ~2020-05-01 | XMS | Encounter Summary ---
Demographics + + + | Address | [address] | | | [...] Providers + +------+ + | Care Hand Tier Name | Role | Phone | [...] | | | | due to | [place], [place] | [place], | | | | | internal | [address] | [place] [address] | | | | | joint | Phone: | Phone: | | | | | prosthesis | [phone] | [phone] | | | | | ([facility]) | Fax: | Fax: | | | | | | [phone] | [phone] | +--------+--------+ + + + + Encounter [...] | | | | Loop Physician[facility] | [place], [place] | internal joint | | | | [place], 3rd floor | [address] | prosthesis (HCC) | | | | [place], [place] | [phone] | (Primary Dx) | | | | [address] | | | | | | [phone] | | | +--------+---------+ + + + [...] CLINIC FOLLOW UP Primary Care Physician: [address] [place] [address] Ms. Galdamez presents to Infectious Diseases Clinic [...] 18, a nd was therefore admitted to [facility] out of concern for R hip infection. [...] discharged in stable condition on 10/22/2010 to [facility] with OPAT & Orthopedic follow-up planned in 2 weeks ti wy. In OPAT follow-up on 11/09/2010 Ms. Galdamez [...] W-FE,OTHER MIN (CENTRUM ORAL) Take by mouth. [place]-3 Fatty Acids-Vitamin E (FISH OIL) 1,000 mg [...] follow up in Infectious Diseases Clinic in [place]. We are hap py to be consulted again should infectious complications arise. I spent a total of 20 minutes face to face with the patient and over 50% was time spent in counseling in which we discussed infection, antibiotics, duration of therapy, lab results, a nd follow-up planning. Carolina Putnam PA-C [facility] Department of Infectious Disease Outpatient IV Antibiotic Therapy Clinic (OPAT) Pager ID: [phone] [facility]. 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
--- OUTSIDE RECORDS SUMMARY | ~2020-05-01 | XMS | Encounter Summary ---
Demographics + + + | Address | [address] | | | [place] [address] | + + + | Home Phone [...] + +------+ + | Care Lead Software Qa Engineer Name | Role | Phone | [...] | unspecified | [address] | Rd [place], | | | | | whether | [place], [place] | [place] | | | | | generalized | [address] | [address] | | | | | or | Phone: | Phone: | | | | | localized, | [phone] | [phone] | | | | | pelvic | Fax: | Fax: | | | | | region and | [phone] | [phone] | | | | | thigh | [...] Pavilion | | | | | | [place], [place] | | | | | | [address] | | | | | | [phone] | | | +--------+---------+ + + + [...] surgeries scheduled to take place on the peacham at the [facility]: Surgeries scheduled in the [facility] ([address] [place] [address]): registration is located on the 4th floor of [facility] (Day Surgery). Surgeries scheduled in the [facility]: registration is located on the 9th floor. Surgeries scheduled in [facility]: registration is located on the 6th floor. Surgeries scheduled in the [facility]: registration is located i n the [facility] on the first floor. For surgeries scheduled to take place at the [facility]: registration is [...] If you use specialized medical equipment at [facility], please check with your provider before [...] surgeries scheduled to take place on the peacham at the [facility]: Surgeries scheduled in the [facility] ([address] [place] [address]): registration is located on the 4th floor of [facility] (Day Surgery). Surgeries scheduled in the [facility]: registration is located on the 9th floor. Surgeries scheduled in [facility]: registration is located on the 6th floor. Surgeries scheduled in the [facility]: registration is located i n the [facility] on the first floor. 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 In this time she has also [...] OF ACTION: see above PARQ: see above. [facility] umeunice in this encounter Plan [...] Performed At | + + + | [id number] Estimated GFR > 60 mL/min/1.73 sq m if non- | [facility] | | Uzbek [id number] Estimated GFR > 60 mL/min/1.73 sq m if | DEPARTMENT OF | | [place]zbek GFR is estimated using the MDRD equation [...] MEDICAL CENTER | [address] | [place] [address] | | | PATHOLOGY | [address] | | | + + + + + | [facility] | [address] | [place] [address] | | | PATHOLOGY | [address] [...] + | [facility] | [facility] | [place] [address] | | | PATHOLOGY | [address] | | | + + + + + | [facility] | [address] [facility] | [place] [address] | | | PATHOLOGY | [address] [...] [facility] | [facility] | [place] [address] | | | PATHOLOGY | [address] | | | + + + + + | [facility] DEPARTMENT OF | [facility] | [place] [address] | | | PATHOLOGY | [address] [...] + + + + | PRODUCT | [id number] | | [facility] | | | UNIT [...] REG[facility]AL [facility] | [address] [facility] | [place] [address] | | | PATHOLOGY | [address] | | | + + + + + | [facility] | [address] [place] [place] [address] | [place] [address] | | | PATHOLOGY | [address] | | | + + + + + documented in this encounter Visit Diagnoses + + | Diagnosis | + + | Other specified pre-operative examination - Primary | + + documented in this encounter
--- OUTSIDE RECORDS SUMMARY | ~2020-05-01 | XMS | Encounter Summary ---
Demographics + + + | Address | [address] | | | [place] [address] | + + + | Home Phone [...] Providers + +------+ + | Care Transitional Nurse Name | Role | Phone | [...] | | | | | | Jamie [place], | | | | | | | [place] | | | | | | | [address] | | | | | | | Phone: | | | | | | | [phone] | | | | | | | Fax: | | | | | | | [phone] | +--------+--------+ + + + + Encounter [...] | | arthroplasty) | | | | [place], [place] | | | | | | [address] | | | | | | [phone] | | | +--------+---------+ + + + [...] still well controlled at this point with [place]. She has been wbat and is overall [...] view Consult to rehabilitation physical therapy outside [facility] documented in this encounter Plan [...]
--- OUTSIDE RECORDS SUMMARY | ~2020-05-01 | XMS | Encounter Summary ---
Demographics + + + | Address | [address] | | | [place] [address] | + + + | Home Phone [...] Providers + +------+ + | Care Spa Therapist Name | Role | Phone | [...] | | Karen Del Rosario NP | [facility] [address] | | | | | TRANSTHORACI | [address] | | | | | C | [address] | [address] | | | | | ECHOCARDIOGR | Rd | [place] | | | | | AM, ADULT | [place], [place] | [facility] | | | | | | [address] | floor | | | | | | | [place], [place] | | | | | | | [address] | | | | | | | Phone: | | | | | | | [phone] | +--------+--------+ + + + + Diagnostic [...] | | | X-RAY | Karen E, ISOBUTYLENE OPERATOR CHIEF | [address] | | | | | ASPIRATION | [address] | [address] | | | | | OR INJECTION | [facility] | [facility] | | | | | MAJOR JOINT | Rd | Health and | | | | | W/NEEDLE | [place], [place] | Healing, | | | | | PLCMT | [address] | Building [address], | | | | | | | 3rd Floor | | | | | | | [place], [place] | | | | | | | [address] | | | | | | | Phone: | | | | | | | [phone] | | | | | | | Fax: | | | | | | | [phone] | +--------+--------+ + + + + Reason [...] | | | | | | | [address] | | | | | | | [place] | | | | | | | Jamie [facility] | | | | | | | Hospital | | | | | | | [place], [place] | | | | | | | [address] | | | | | | | Phone: | | | | | | | [phone] | +--------+--------+ + + + + Encounter [...] Rd | | | 10/23/ | | Laresasmita Vanegason | [place], [place] | | | 2010 | | (MNP/[facility]) | [address] | | | | | [place], [place] | [phone] | | | | | [address] | | | | | | | Jillian Bee MD | | | | | | [address] | | | | | | [place], | | | | | | [place] [address] | | | | | | [phone] | | | | | | | | | | | | Tisha Figueroa FNP | | | | | | [address] | | | | | | [place], | | | | | | [place] [address] | | | | | | [phone] | | | | | | | | | | | | Rustam Duenas MD | | | | | | [address] | | | | | | [place], | | | | | | [place] [address] | | | | | | [phone] | | | | | | | | | | | | Benson Cooper MD | | | | | | [address] [place] | | | | | | [address] [place], [place] | | | | | | [address] | | | | | | | | | | | | Kalyan Arias MD | | | | | | [address] | | | | | | [place] [facility], | | | | | | [place] [address] | | | | | | [phone] | | | | | | | [...] might be different f rom the original. [facility] DEPARTMENT OF ORTHOPAEDICS & REHABILITATION INPATIENT HOSPITAL DISCHARGE SUMMARY & INTERDISCIPLINARY INSTRUCTIONS Patient: Chastity Galdamez CSN: [id number] Admission Date: 10/12/2010 Discharge Date: 10/22/2010 Attending Physician: Kalyan Arias MD PCP: Travis Cruz MD Service: [facility] Orthopaedics & Rehabilitation Diagnoses [...] WBAT Discharge POLST completed No Destination: Destination: Senior Care Facility Condition on Discharge Good Discharge Follow Up Provider and Clinic: Tesfaye Saenz, Orthopaedic Surgery . Appointment: Please call clinic to make appointment for 2 weeks after your surgery for sut ure/staple removal and wound check. Call [phone] to arrange appointment date and time. Outpatient antibiotics: [facility] referral has been made (for outpatient antibiotics). -While on outpatient antibiotics, weekly CBC/diff, CMP, ESR, & CRP should be checked, with results faxed to Dr. Teresa or Elvia SPENCE at [facility] clinic (fax #[phone]). Current Discharge Medication List START taking these [...] W-FE,OTHER MIN (CENTRUM ORAL) Take by mouth. [place]-3 Fatty Acids-Vitamin E (FISH OIL) 1,000 mg [...] administration instructions. - Call orthopedic clinic at [phone] if any persistent, localized swelling that does [...] and ask for the orthopaedic surgery resident international relations teacher. Additional postop instructions/ What to expect: -Apply [...] feel that you will need more, call [phone] during business hours in order to get a new prescription. Please allow 48 hours for re fills to be processed. - Schedule II narcotics can NOT be called in to a pharmacy. Please arrange for someone to continuous pickling line pickler your prescription or allow additional time for [...] 2 weeks (or as previously scheduled). Call [phone] to confirm or schedul e this appointment. [...] Condition on Discharge: Improved Discharging Patient To: Senior Care Facility Date and Time of Discharge Summary [...] + + + +---------+ + + | [place]-3 Fatty | Take by mouth. | | [...] 11 Date: 10/23/2010 Patient: CHASTITY Osei TALLY [id number] Interval Hx: Afebrile. Wants to go home. [...] she may arrange timely follow up in [facility] clinic. While o n outpatient antibiotics, weekly CBC/diff, CMP, ESR, & CRP should be checked, with results f axed to Dr. Teresa or Elvia SPENCE at [facility] clinic (fax #[phone]). -Dispo plan: pt requires 3 days of flagyl treatment for C. Diff before discharge to residential facility. D/C to residential facility today Samuel Montaño MD - 10/22/2010 7:24 AM PST Ortho Progress Note Hospital Day: 10 Date: 10/22/2010 Author: SAMUEL BOWEN MD Patient: CHASTITY Osei TALLY [id number] Interval Hx: Afebrile. WBC up yesterday and [...] Dr. Teresa or Elvia Putnam PA at [facility] clinic (fax #[phone]). -Dispo plan: pt requires 3 days of flagyl treatment for C. Diff before discharge to [facility] ed nursing facility. Possible D/C to residential facility today Samuel Montaño MD - 10/21/2010 7:16 AM PST Ortho Progress Note Hospital Day: 9 Date: 10/21/2010 Author: SAMUEL BOWEN MD Patient: CHASTITY Osei TALLY [id number] Interval Hx: Afebrile overnight. Comfortable and without [...] Dr. Teresa or Elvia Putnam PA at [facility] clinic (fax #[phone]). -Dispo plan: pt requires 3 days of flagyl treatment for C. Diff before discharge to skill ed nursing facility. Plan to D/C to residential facility on Saturday10/22/10. Lucero Petersen M D - 10/20/2010 4:07 PM PST CLINICAL HOSPITALIST SERVICE ([facility])-PROGRESS NOTE HOSPITAL DAY: 8 Author: LUCREO KNOX MD Subjective: Interval Hx: Lying comfortably [...] for this patient. LUCERO KNOX MD [address] Clinical Hospitalist Service [facility] [place] EPIC DEPARTMENT: Hosp ([facility])- [phone] Place of Service: IP - [id number] [facility] [id number] CPT: 96240 Subsequent Visit Exp Prob Foc/Mod Complexity 25 min I spent 25 minutes nfhq-lt-trme with this patient of which greater than [...] patient is discharged. Please notify [facility] clinic [id number] re: discharge date, where patient is going (i.e. home, SNF ) and home IV provider if applicable. [facility] Department of Infectious Disease Outpatient IV Antibiotic Therapy Clinic (OPAT) Pager ID: [phone] [facility] [address] Mail Code V779 [place] [address] OPAT teaching note: Education and training for [...] PCP . I gave the patient my [facility] business card, and let them know that our clinical asst, Tonja Keller, will be contacting them after discharge to make their first [facility] clinic follow-up appointment. I explained [...] from antibiotics occur, we will ask the [facility] infusion agency to alter the dose of antibiotics, or even change the antibiotics. I expla ined that we will communicate patient's progress and plan with PCP, surgeon, and the home in [place]. I reviewed the possible complications PICC lines [...] unable to contact the IV company or [facility], then to present to the ED. I verified that the patient has a primary care provider, and that they will follow-up with them following this hospitalization in regards to other medical issues such as chronic pain, diabetes, or high blood pressure for which we do not provide any care. I provided the patient with the [facility] welcome letter that reiterates the above teaching. I spent 25 minutes in education and training in patient self management for IV antibiotic a nd PICC line use with greater than 50% spent on counseling and/or coordination of care. [facility] DEPARTMENT: IDC INFECT DIS CONSULT - [id number] Place of Service: Inpatient Date of Service: 10/20/2010 CSN: [id number] Suggested Level of Care: 15373- Subsequent hosp care, 25 min Javier Bunn [...] to Dr. Teresa or Elvia SPENCE at [facility] clinic (fax #[phone]). -Please ensure there is a baseline CBC, CMP, ESR, and CRP prior to discharge.--ordered tod ay -Dispo plan: pt requires 3 days of flagyl treatment for C. Diff before discharge to [facility]. Plan to D/C to residential facility on Saturday10/22/10. Lucero Petersen MD - [...] (pt does not want insulin coverage) (10/18/10 5889) Lab Results Component Value Date INR 1.07 [...] Prophylaxis: Per primary team. LUCERO KNOX MD Clinical Lab Specialistautomobile engine assembler Clinical Hospitalist Service [facility] Medicine Department of Medicine [facility] DEPARTMENT: Hosp ([facility])- [id number] Place of Service: - [id number] Modifiers:GC Resident Involved: No CPT: 95868 Subsequent Visit Exp Prob Foc/Mod Complexity 25 min I spent 25 minutes rtaz-em-vtyu with this patient of which greater than [...] Intake/Output Summary (Last 24 hours) at 10/19/10 0624 Last data filed at 10/19/10 0422 Gross [...] Prophylaxis: Per primary team. LUCERO KNOX MD Clinical Lab Specialistautomobile engine assembler Clinical Hospitalist Service Division of Hospital Medicine Department of Medicine [facility] DEPARTMENT: Hosp ([facility])- [id number] Place of Service: Modifiers:GC Resident Involved: No CPT: 80956 Subsequent Visit Exp Prob Foc/Mod Complexity 25 min I spent 25 minutes brks-ee-vbww with this patient of which greater than [...] (10/16/102111) CBG Intervention: (Pt refused CBG) (10/17/10 2216) Lab Results Component Value Date INR 1.07 [...] as well as aspirate LUCERO KNOX MD Clinical Lab Specialistautomobile engine assembler Clinical Hospitalist Service [facility] Medicine Department of Medicine [facility] DEPARTMENT: Hosp ([facility])- [id number] Place of Service: IP - [phone] Modifiers:GC Resident Involved: No CPT: 39838 Subsequent Visit Detailed/High complexity 35 min I spent 40 minutes qqos-cf-sydg with this patient of which greater than [...] Cohen MD - 10/16/2010 9:36 PM PST [facility] ORTHOPAEDIC SURGERY POST OPERATIVE [...] BLE xrays Jillian Farfan MD [facility] Department of Orthopaedics & Rehabilitation [address] [facility] Mail Code: OP31 Amari TAMEZ [phone] [email or web address] Pager: [phone] The above was formulated both independently and [...] immobile. Wearing Priscilla Hose. DAVID KNIGHT MD [facility] 6A Clinical Lab Specialistautomobile engine assembler Clinical Hospitalist Service [facility] EPIC DEPARTMENT: Hosp ([facility])- [id number] Place of Service: IP - [phone] [facility] [id number] Modifiers:GC Resident Involved: No Service: Ortho Suggested CPT: 65829 Subsequent Visit Exp Prob Foc/Mod Complexity 25 min I spent more than 30 minutes zuwc-mu-lmgh with the patient of which greater than 50% was sp ent co-ordinating care acoreji, David Evangelista MD - 10/15/2010 7:57 AM PST CLINICAL HOSPITALIST SERVICE ([facility])-PROGRESS NOTE HOSPITAL DAY: 3 Author: DAVID KNIGHT [...] is quite immobile. DAVID KNIGHT MD [address] Clinical Lab Specialistautomobile engine assembler Clinical Hospitalist Service [facility] EPIC DEPARTMENT: Hosp ([facility])- [id number] Place of Service: - [phone] [facility] [id number] Modifiers:GC Resident Involved: No Service: Primary Suggested CPT: 10253 Subsequent Visit Detailed/High complexity 35 min I spent more than 35 minutes lekg-mt-teat with the patient of which greater than [...] + + + | IP CONSULT TO [facility] | Routin | 10/19/2010 | | Results [...] [facility] | [address] | [place], [place] | | | THERAPY | [address] | [address] | | + + + + + [...] + | [facility] DEPARTMENT | [address] | [place] [address] | | | PATHOLOGY | [address] [...] DEPARTMENT OF | [address] | [place] [address] | | | PATHOLOGY | [address] [...] + | [facility] DEPARTMENT | [address] | [place] [address] | | | PATHOLOGY | [address] [...] [facility] | [address] | [place], [place] | | | THERAPY | [facility] | [address] | | + + + + + [...] [facility] | [address] | [place], [place] | | | SUPRIYA POINT OF CARE | [address] | [address] | | | TESTS | | | [...] + | [facility] DEPARTMENT | [address] | [place] [address] | | | PATHOLOGY | [address] [...] (H) | 60 - 99 mg/dL | [facility] | | | PLASMA | | | [...] DEPARTMENT OF | [address] | [place] [address] | | | PATHOLOGY | [address] [...] + | [facility] DEPARTMENT | [address] | [place] [address] | | | PATHOLOGY | [address] [...] | | | | | by: Radha Gorves, | | | | | | | [...] + + + | [facility] | [address] | [place], [place] | | | THERAPY | [address] | [address] | | + + + + + [...] | + + + + + | [facility] DEPARTMENT OF | [address] | [place] [address] | | | PATHOLOGY | [address] [...] | + + + + + | [facility][1[facility] | [address] | [place] [address] | | | PATHOLOGY | [address] [...] + + | [facility] DEPARTMENT OF | [address] | [place] [address] | | | PATHOLOGY | [address] [...] Bunch, | | | | | | PRICER | | | | | | | | | | | | | | | | | | | | | | | | | | | | | |Electronically Signed by: Angelo Bunch PRICER | | | | + + + + +-------- ------+ + + | Specimen | + + | | + + + + + + + | Performing | Address | City/State/Zipcode | Phone Number | | Organization | | | | + + + + + | [facility] | [address] | [place], [place] | | | THERAPY | [address] | [address] | | + + + + + [...] + | [facility] | [address] | [place], [place] | | | THERAPY | [facility] | [address] | | + + + + + [...] [facility] | [address] | [place], [place] | | | THERAPY | [address] | [address] | | + + + + + [...] effective 10/26/08 | [facility] | | RLB ([facility]) Stacy | REN[address] | | [place] [address] [facility] | LABORATORY | | [place] [address] | | + + + + + + + + | Performing | Address | City/State/Zipcode | Phone Number | | Organization | | | | + + + + + | [facility] | [address] [facility] [address] | [place] [address] | | | LABORATORY | | | [...] DEPARTMENT OF | [address] | [place] [address] | | | PATHOLOGY | [...] DEPARTMENT OF | [address] | [place] [address] | | | PATHOLOGY | [address] | | | + + + + + SEDIMENTATION RATE (10/20/2010 6:44 AM PST) + +---------+ + + + | Component | Value | Ref Range | Performed | Pathologist | | | | | At | Signature | + +---------+ + + + | SEDIMENTATI | 108 (H) | <31 mm/hr | [facility] | | | ON [...] | + + + + + | [facility][1[facility] | [address] | [place] [address] | | | PATHOLOGY | [address] [...] + + + + | [facility] | [address] | [place] [address] | | | LABORATORY | | | [...] DEPARTMENT OF | [address] | [place] [address] | | | PATHOLOGY | [address] [...] Miles, | | | | | | PRICER | | | | | | | [...] [facility] | [address] | [place], [place] | | | THERAPY | [address] | [address] | | + + + + + [...] | + + + + + | [facility] DEPARTMENT OF | [address] | [place] [address] | | | PATHOLOGY | [address] [...] | + + + + + | [facility][1] | [address] | [place] [address] | | | PATHOLOGY | [address] [...] | + + + + + | [facility][1] | [address] | [place] [address] | | | PATHOLOGY | [address] | | | + + + + + IP CONSULT TO [facility] TEAM (10/19/2010 10:48 AM PST) + + [...] Long 1cm Trimmed Lot # (or Sticker): [id number] INSERTION SITE: | | | - Cephalic [...] CXR Placed by: [place] [id number] | | | Assisted by: na | [...] CATHETERProduct Name: BoogieConstruction: | | Single4 Fr60cm [id number] TrimmedLot # (or Sticker): [id number] SITE: - | | CephalicLeftLocal anesthetic used: [...] by CXRPlaced by: Anabella Ramirez RN IVT [id number] | | by: na | |PICC CATHETER | |Product Name: Boogie | |Construction: Single | |4 Fr | |60cm Long | |1cm Trimmed | |Lot # (or Sticker): [id number] | | | |INSERTION SITE: - Cephalic [...] | |Placed by: [place] [id number] | |Assisted by: na | + + X-RAY PORTABLE CHEST 1 VIEW (10/19/2010 10:45 AM PST) + + + + + + | Component | Value | Ref Range | Performed | Pathologist | | | | | At | Signature | + + + + + + | X-RAY | STUDY: CT CHEST 1 VIEW | | | | [...] Guardado, | | | | | | PRICER | | | | + + + + + + + + | Specimen | + + | | + + + + + + + | Performing | Address | City/State/Zipcode | Phone Number | | Organization | | | | + + + + + | [facility] | [address] | [place], [place] | | | THERAPY | [address] | [address] | | + + + + + [...] | + + + + + | [facility][1] | [address] | [place] [address] | | | PATHOLOGY | [address] [...] DEPARTMENT OF | [address] | [place] [address] | | | PATHOLOGY | [address] [...] | + + + + + | [facility][1] | [address] | [place] [address] | | | PATHOLOGY | [address] [...] [facility] | [address] | [place], [place] | | | THERAPY | [address] | [address] | | + + + + + [...] [facility] | [address] | [place], [place] | | | SUPRIYA POINT OF CARE | [address] | [address] | | | TESTS | | | [...] | [address] | [place] [address] | | | PATHOLOGY | [address] [...] At | + + + | RLB ([facility]) Regis | REGIS | | [place] [address] [facility] | [facility] | | [place] [address] | LAB-MICRO | + + + + + + + + | Performing | Address | City/State/Zipcode | Phone Number | | Organization | | | | + + + + + | [facility] | [address] [facility] | [place] [address] | | | LAB-MICRO | | | [...] + | [facility] DEPARTMENT | [address] | [place] [address] | | | PATHOLOGY | [address] [...] (H) | 60 - 99 mg/dL | [facility] - | | | [...] [facility] | [address] | [place], [place] | | | JADA EPPS OF CARE | [address] | [address] | | | TESTS | | | [...] [facility] | [address] | [place], [place] | | | JADA EPPS OF CARE | [address] | [address] | | | TESTS | | | [...] DEPARTMENT OF | [address] | [place] [address] | | | PATHOLOGY | [address] [...] | + + + + + | [facility][1] | [address] | [place] [address] | | | PATHOLOGY | [address] [...] | + + + + + | [facility][1] | [address] | [place] [address] | | | PATHOLOGY | [address] [...] + | [facility] | [address] [facility] | [place], [place] | | | THERAPY | [address] | [address] | | + + + + + [...] [facility] | [address] | [place], [place] | | | THERAPY | [address] | [address] | | + + + + + [...] [facility] | [address] | [place], [place] | | | THERAPY | [address] | [address] | | + + + + + [...] RLB ([address] [facility]) | | | [facility] [address] | | | [place] [address] | | + + + + + + + + | Performing | Address | City/State/Zipcode | Phone Number | | Organization | | | | + + + + + | [facility] | [address] | [place] [address] | | | LABORATORY | | | [...] | | | |Electronically Signed by: Lakeisha Maqruez, | | | | + + + + +-------- ------+ + + | Specimen | + + | | + + + + + + + | Performing | Address | City/State/Zipcode | Phone Number | | Organization | | | | + + + + + | [facility] | [address] | [place], [place] | | | THERAPY | [address] | [address] | | + + + + + [...] [facility] | [address] | [place], [place] | | | THERAPY | [address] | [address] | | + + + + + [...] [facility]N | [address] | [place], [place] | | | JADA EPPS OF [facility] | [address] | [address] | | | TESTS | | | [...] [facility] | [address] | [place], [place] | | | JADA EPPS OF CARE | [address] | [address] | | | TESTS | | | [...] J[facility] | [address] | [place], [place] | | | SUPRIYA SPANGLE OF [facility] | [address] | [address] | | | TESTS | | | [...] [facility] | [address] | [place], [place] | | | THERAPY | [address] | [address] | | + + + + + [...] | + + + + + | [facility][1] | [address] | [place] [address] | | | PATHOLOGY | [address] [...] [facility] | [address] | [place] [address] | | | PATHOLOGY | [address] [...] | + + + + + | [facility] DEPARTMENT OF | [address] | [place] [address] | | | PATHOLOGY | [address] [...] DEPARTMENT OF | [address] | [place] [address] | | | PATHOLOGY | [address] [...] DEPARTMENT OF | [address] | [place] [address] | | | PATHOLOGY | [address] [...] + + + | [facility] | [address] | [place] [address] | | | LAB-MICRO | | | [...] + + + | [facility] | [address] | [place] [address] | | | LAB-MICRO | | | [...] Lab) | | | | | | [facility] [address] | | | | | | [address] | | | [address] | | | | | | [place] [address] | | | | + + + + + + + + | Specimen | + + | | + + + + + + + | Performing | Address | City/State/Zipcode | Phone Number | | Organization | | | | + + + + + | [facility] | [address] | [place] [address] | | | LAB-MICRO | | | [...] + + + | [facility] | [address] | [place] [address] | | | LAB-MICRO | | | [...] Lab) | | | | | | [facility] | | | | | | [address] | | | | [address] | | | | | | [place] [address] | | | | + + + + + + + + | Specimen | + + | | + + + + + + + | Performing | Address | City/State/Zipcode | Phone Number | | Organization | | | | + + + + + | [facility] | [address] | [place] [address] | | | LAB-MICRO | | | [...] REGIS [facility] | [address] | [place] [address] | | | LAB-MICRO | | | [...] Permanente | | | | | | [address] | | | | | | [place], | | | | | | [place] [address] | | | | + + + + + + + + | Specimen | + + | | + + + + + + + | Performing | Address | City/State/Zipcode | Phone Number | | Organization | | | | + + + + + | [facility] | [address] | [place] [address] | | | LAB-MICRO | | | [...] Lab) | | | | | | [facility] | | | | | | [address] | | [address] | | | | | | [place] [address] | | | | + + + + + + + + | Specimen | + + | | + + + + + + + | Performing | Address | City/State/Zipcode | Phone Number | | Organization | | | | + + + + + | [facility] | [address] | [place] [address] | | | LAB-MICRO | | | [...] + + + | [facility] | [address] | [place] [address] | | | LAB-MICRO | | | [...] + + + | [facility] | [address] | [place] [address] | | | LAB-MICRO | | | [...] Lab) | | | | | | [facility] [address] | | | | | | [address] | | | | | [address] | | | | | | [place] [address] | | | | + + + + + + + + | Specimen | + + | | + + + + + + + | Performing | Address | City/State/Zipcode | Phone Number | | Organization | | | | + + + + + | [facility] [facility] | [address] | [place] [address] | | | LAB-MICRO | | | [...] + + + | [facility] | [address] | [place] [address] | | | LAB-MICRO | | | [...] + + + | [facility] | [address] | [place] [address] | | | LAB-MICRO | | | [...] Permanente | | | | | | [address] | | | | | | [place], | | | | | | [place] [address] | | | | + + + + + + + + | Specimen | + + | | + + + + + + + | Performing | Address | City/State/Zipcode | Phone Number | | Organization | | | | + + + + + | [facility] | [address] | [place] [address] | | | LAB-MICRO | | | [...] + + + | [facility] | [address] | [place] [address] | | | LAB-MICRO | | | [...] + + + | [facility] | [address] | [place] [address] | | | LAB-MICRO | | | [...] Lab) | | | | | | [facility] | | | | | | [address] | | [address] | | | | | | [place] [address] | | | | + + + + + + + + | Specimen | + + | | + + + + + + + | Performing | Address | City/State/Zipcode | Phone Number | | Organization | | | | + + + + + | [facility] | [address] | [place] [address] | | | LAB-MICRO | | | [...] + + + | [facility] | [address] | [place] [address] | | | LAB-MICRO | | | [...] + + + | [facility] | [address] | [place] [address] | | | LAB-MICRO | | | [...] RLB | | | | | | ([address] [facility]) | | | | | | [facility] | | | | | | [address] | | | | | | [address] | | | | | | [place] [address] | | | | + + + + + + + + | Specimen | + + | | + + + + + + + | Performing | Address | City/State/Zipcode | Phone Number | | Organization | | | | + + + + + | [facility] | [address] | [place] [address] | | | LAB-MICRO | | | [...] Permanente | | | | | | [address] | | | | | | [place], | | | | | | [place] [address] | | | | + + + + + + + + | Specimen | + + | | + + + + + + + | Performing | Address | City/State/Zipcode | Phone Number | | Organization | | | | + + + + + | [facility] | [address] | [place] [address] | | | LAB-MICRO | | | [...] + + + | [facility] | [address] | [place] [address] | | | LAB-MICRO | | | [...] + + + | [facility] | [address] | [place] [address] | | | LAB-MICRO | | | [...] Lab) | | | | | | [facility] | | | | | | [address] | | | [address] | | | | | | [place] [address] | | | | + + + + + + + + | Specimen | + + | | + + + + + + + | Performing | Address | City/State/Zipcode | Phone Number | | Organization | | | | + + + + + | [facility] | [address] | [place] [address] | | | LAB-MICRO | | | [...] + + + | [facility] | [address] | [place] [address] | | | LAB-MICRO | | | [...] RLB | | | | | | ([address] [facility]) | | | | | | [facility] | | | | | | [address] | | | | | | [address] | | | | | | [place] [address] | | | | + + + + + + + + | Specimen | + + | | + + + + + + + | Performing | Address | City/State/Zipcode | Phone Number | | Organization | | | | + + + + + | [facility] | [address] | [place] [address] | | | LAB-MICRO | | | [...] | + + + + + | [facility] | [address] | [place] [address] | | | LAB-MICRO | | | [...] Regis | | | | | | [facility] | | | | | | [address] | | | | | | [place], | | | | | | [place] [address] | | | | + + + + + + + + | Specimen | + + | | + + + + + + + | Performing | Address | City/State/Zipcode | Phone Number | | Organization | | | | + + + + + | [facility] | [address] | [place] [address] | | | LAB-MICRO | | | [...] + + + | [facility] | [address] | [place] [address] | | | LAB-MICRO | | | [...] [facility] | [address] | [place] [address] | | | LAB-MICRO | | | [...] Lab) | | | | | | [facility] | | | | | | [address] | | | [address] | | | | | | [place] [address] | | | | + + + + + + + + | Specimen | + + | | + + + + + + + | Performing | Address | City/State/Zipcode | Phone Number | | Organization | | | | + + + + + | [facility] | [address] | [place] [address] | | | LAB-MICRO | | | [...] + + + | [facility] | [address] | [place] [address] | | | LAB-MICRO | | | [...] RLB | | | | | | ([address] [facility]) | | | | | | [facility] | | | | | | [address] | | | | | | [address] | | | | | | [place] [address] | | | | + + + + + + + + | Specimen | + + | | + + + + + + + | Performing | Address | City/State/Zipcode | Phone Number | | Organization | | | | + + + + + | [facility] | [address] | [place] [address] | | | LAB-MICRO | | | [...] + + + | [facility] | [address] | [place] [address] | | | LAB-MICRO | | | [...] Molly | | | | | | [address] | | | | | | [place], | | | | | | [place] [address] | | | | + + + + + + + + | Specimen | + + | | + + + + + + + | Performing | Address | City/State/Zipcode | Phone Number | | Organization | | | | + + + + + | [facility] | [address] | [place] [address] | | | LAB-MICRO | | | [...] + + + + | [facility] | [address] | [place] [address] | | | LAB-MICRO | | | [...] + | [facility] DEPARTMENT | [address] | [place] [address] | | | PATHOLOGY | [address] [...] | + + + + + | [facility][1] | [address] | [place] [address] | | | PATHOLOGY | [address] [...] effective 02/15/09 | [facility] | | RLB ([address] [facility]) [facility] | REGIONAL | | [facility] [place] [address] | LABORATORY | | [place] [address] | | + + + + + + + + | Performing | Address | City/State/Zipcode | Phone Number | | Organization | | | | + + + + + | [facility] | [address] | [place] [address] | | | LABORATORY | | | [...] At | + + + | RLB ([address] [facility]) | [facility] | | [facility] [place] [address] [facility] | REGIONAL | | [place] [address] | LABORATORY | + + + + + + + + | Performing | Address | City/State/Zipcode | Phone Number | | Organization | | | | + + + + + | [facility] | [address] | [place] [address] | | | LABORATORY | | | [...] [facility] | [address] | [place], [place] | | | THERAPY | [address] | [address] | | + + + + + OPERATION RECORD (10/16/2010 12:00 AM PST) + + + | Narrative | Performed At | + + + | [id number] | | | [id number] CHAD | | | [place] [id number] Date: | | | 10/16/2010 Attending Surgeon: | | | Kalyan Arias M.D. Forecast Analyst(s): | | | Raymond Valdes M.D. Preoperative [...] She presented as an ED transfer to [facility] approximately 3 days | | | [...] | multimodal DVT prophylaxis. Kalyan Arias M.D. [facility] / | | | [id number] / [id number] / [id number] / | | | | | + + + + + | Procedure Note | + + | Kalyan Arias MD - 10/17/2010 9:21 AM [facility] [id number] | | 01/ [id number] [facility] C | | [id number] Date: 10/16/2010 Attending Surgeon: Kalyan | | Ortiz Arias M.D. Forecast Analyst(s): Raymond Valdes M.D. Preoperative | | Diagnosis(es):1. [...] [facility]. She had a [...] She presented as an ED transfer to [facility] approximately 3 | | [...] and blood culture bottles per [facility] biopsy protocol. The fascia | | [...] | will receivemultimodal DVT prophylaxis. Kalyan Arias M.D.[facility] / [id number] / [id number] | | / [id number] / T: 10/16/2010 | |minimally symptomatic for her, and she did well with the arthroplasty | |itself. She presented as an ED transfer to [facility] approximately 3 days prior [...] | | | |Kalyan Arias M.D. | |[facility] / | |[id number] / [id number] / [id number] / | | | | | | [...] AHN | [address] | [place], [place] | | | FLOR[place] EPPS | [facility] | [address] | | | TESTS | | | [...] [facility] DEPARTMENT | [address] | [place] [address] | | | PATHOLOGY | [address] [...] + + + + | PRODUCT | [id number] | | [facility] | | | UNIT [...] + + + + | BLOOD | 85049 | | [facility] | | | PRODUCT [...] DEPARTMENT OF | [address] | [place] [address] | | | PATHOLOGY | [address] [...] + + + + | PRODUCT | [id number] | | [facility] | | | UNIT [...] + + + + | BLOOD | 73061 | | [facility] | | | PRODUCT [...] | + + + + + | [facility][1] | [address] | [place] [address] | | | PATHOLOGY | [address] [...] JIMY | [address] | [place], [place] | | | JADA EPPS OF [facility] | [address] | [address] | | | TESTS | | | [...] ALL[facility]AM | [address] | [place], [place] | | | JADA EPPS OF [place] | [facility] | [address] | | | TESTS | | | | + + + + + CAPILLARY BLOOD GLUCOSE, POC (10/14/2010 11:02 PM PST) + +---------+ + + + | Component | Value | Ref Range | Performed | Pathologist | | | | | At | Signature | + +---------+ + + + | BLOOD | 142 (H) | 60 - 99 mg/dL | [facility] - | | | [...] AHN | [address] | [place], [place] | | | SUPRIYA POINT OF CARE | [address] | [address] | | | TESTS | | | [...] [facility] | [address] | [place], [place] | | | THERAPY | [address] | [address] | | + + + + + [...] view image for the detailed interpretation from [employer] results. | CARDIOLOGY | + + + + + + + + | Performing | Address | City/State/Zipcode | Phone Number | | Organization | | | | + + + + + | [facility] | [address] | [place], [place] | | | CARDIOLOGY | [address] | [address] | | + + + + + [...] + + + + | [facility] | [address] | [place] [address] | | | LAB-MICRO | | | [...] DEPARTMENT OF | [address] | [place] [address] | | | PATHOLOGY | [address] [...] DEPARTMENT OF | [address] | [place] [address] | | | PATHOLOGY | [address] [...] | + + + + + | [facility][1] | [address] | [place] [address] | | | PATHOLOGY | [address] [...] Lab) | | | | | | [facility] | | | | | | [address] | | | | [address] | [address] | | | | | | [place] [address] | | | | + + + + + + + + | Specimen | + + | | + + + + + + + | Performing | Address | City/State/Zipcode | Phone Number | | Organization | | | | + + + + + | [facility] | [address] | [place] [address] | | | LAB-MICRO | | | [...] + | [facility] DEPARTMENT | [address] | [place] [address] | | | PATHOLOGY | [address] [...] DEPARTMENT OF | [address] | [place] [address] | | | PATHOLOGY | [address] [...] | + + + + + | [facility][1] | [address] | [place] [address] | | | PATHOLOGY | [address] [...] + + + | [facility] | [address] | [place] [address] | | | LAB-MICRO | | | [...] + + + | [facility] | [address] | [place] [address] | | | LAB-MICRO | | | [...] [facility] DEPARTMENT | [address] | [place] [address] | | | PATHOLOGY | [address] [...] | + + + + + | [facility][1] | [address] | [place] [address] | | | PATHOLOGY | [address] [...] DEPARTMENT OF | [address] | [place] [address] | | | PATHOLOGY | [address] [...] + + + | [facility] | [address] | [place] [address] | | | LAB-MICRO | | | [...] | + + + + + | [facility][1] | [address] | [place] [address] | | | PATHOLOGY | [address] [...] DEPARTMENT OF | [address] | [place] [address] | | | PATHOLOGY | [address] [...] DEPARTMENT OF | [address] | [place] [address] | | | PATHOLOGY | [address] [...] | + + + + + | [facility][1] | [address] | [place] [address] | | | PATHOLOGY | [address] [...] effective 10/26/08 | [facility] | | RLB ([facility] [facility]) [facility] | REGIONAL | | [facility] [place] [address] | LABORATORY | | [place] [address] | | + + + + + + + + | Performing | Address | City/State/Zipcode | Phone Number | | Organization | | | | + + + + + | [facility] | [address] | [place] [address] | | | LABORATORY | | | [...]
--- OUTSIDE RECORDS SUMMARY | ~2020-05-01 | XMS | Encounter Summary ---
Demographics + + + | Address | [address] | | | [place] [address] | + + + | Home Phone [...] Team Providers + +------+ + | Care Cocoa Mill Operator Name | Role | Phone | + +------+ + | Marta Jenkins DRYWALL HANGER FRAMER | PCP | | + +------+ + [...] | Jamie Mailcode: [address] [place], | | | | | [place], [place] | [place] [address] | | | | | [address] | | | | | | [phone] | | | +--------+ + + + [...] | + + + + + | [facility] | [address] | [place] [address] | | | LAB-MICRO | | | [...] | | | | | performed at [place] [facility] | | | | | | [facility] | | | | | | Laboratory. | | | | + + + + + + + + | Specimen | + + | | + + + + + + + | Performing | Address | City/State/Zipcode | Phone Number | | Organization | | | | + + + + + | [facility] | [address] | [place] [address] | | | LAB-MICRO | | | [...] + + + | [facility] | [address] | [place] [address] | | | LAB-MICRO | | | [...] + + + | [facility] | [address] | [place] [address] | | | LAB-MICRO | | | [...] + + + | [facility] | [address] | [place] [address] | | | LAB-MICRO | | | [...] | | | | | performed at [facility] | | | | | | [facility] | | | | | | Laboratory | | | | + + + + + + + + | Specimen | + + | | + + + + + + + | Performing | Address | City/State/Zipcode | Phone Number | | Organization | | | | + + + + + | [facility] | [address] | [place] [address] | | | LAB-MICRO | | | [...] | | | | Test performed at [facility] | | | | | | [facility] | | | | | | Laboratory. | | | | + + + + + + + + | Specimen | + + | | + + + + + + + | Performing | Address | City/State/Zipcode | Phone Number | | Organization | | | | + + + + + | [facility] | [address] | [place] [address] | | | LAB-MICRO | | | [...] | | | | | performed at [facility] | | | | | | [facility] | | | | | | Laboratory. | | | | + + + + + + + + | Specimen | + + | | + + + + + + + | Performing | Address | City/State/Zipcode | Phone Number | | Organization | | | | + + + + + | [facility] | [address] | [place] [address] | | | LAB-MICRO | | | [...] + + + | [facility] | [address] | [place] [address] | | | LAB-MICRO | | | [...] | + + + + + | [facility] | [address] | [place] [address] | | | LAB-MICRO | | | [...] + + + | [facility] | [address] | [place] [address] | | | LAB-MICRO | | | [...] | | | | | performed at [facility] | | | | | | [facility] | | | | | | Laboratory | | | | + + + + + + + + | Specimen | + + | | + + + + + + + | Performing | Address | City/State/Zipcode | Phone Number | | Organization | | | | + + + + + | [facility] | [address] | [place] [address] | | | LAB-MICRO | | | [...] + + + | [facility] | [address] | [place] [address] | | | LAB-MICRO | | | [...] | | | | | performed at [facility] | | | | | | [facility] | | | | | | Laboratory. | | | | + + + + + + + + | Specimen | + + | | + + + + + + + | Performing | Address | City/State/Zipcode | Phone Number | | Organization | | | | + + + + + | [facility] | [address] | [place] [address] | | | LAB-MICRO | | | | + + + + + documented in this encounter Visit Diagnoses Not on filedocumented in this encounter"
--- OUTSIDE RECORDS SUMMARY | ~2020-05-01 | XMS | Encounter Summary ---
Demographics + + + | Address | [address] | | | [place] [address] | + + + | Home Phone [...] Team Providers + +------+ + | Care Biblical Languages Professor Name | Role | Phone | [...] | | | | Mailcode: PV430 | [facility] [place] | | | | | [facility] | [address] | | | | | [place], [place] | [phone] | | | | | [address] | | | | | | [phone] | | | +--------+ + + + [...]
--- OUTSIDE RECORDS SUMMARY | ~2020-05-01 | XMS | Encounter Summary ---
Demographics + + + | Address | [address] | | | [place] [address] | + + + | Home Phone [...] Team Providers + +------+ + | Care Pencil Inspector Name | Role | Phone | [...] | | | [address] | [address] [place], [place] | | | | | Mailcode: PV430 | [address] | | | | | [facility] | | | | | | [place], [place] | | | | | | [address] | | | | | | [phone] | | | +--------+ + + + [...] + +---------+ + + | [facility] DEPARTMENT OF | | [...] + +---------+ + + | [facility] DEPARTMENT OF | | | | | RADIOLOGY | | | | + +---------+ + + documented in this encounter Visit Diagnoses Not on filedocumented in this encounter"
--- OUTSIDE RECORDS SUMMARY | ~2020-05-01 | XMS | Encounter Summary ---
Demographics + + + | Address | [address] | | | [place] [address] | + + + | Home Phone [...] Team Providers + +------+ + | Care Distance Learning Technician Name | Role | Phone | [...] | | | is of hip | [facility] | [address] | | | | | Procedures | Rd | [address] [place], | | | | | CONSULT TO | [place], [place] | [place] [address] | | | | | ORTHOPEDICS | [address] | | | | | | AND [...] | | | | | [facility] | [address] [facility] [address] | | | | | | MEDICAL | [facility] | | | | | | CLINIC [address] | [address] | | | | | | [address] | [place] | | | | | | [place], [place] | [address] | | | | | | [address] | | +--------+--------+ + + + + [...] Pavilion | | | | | | [place], [place] | | | | | | [address] | | | | | | [phone] | | | +--------+---------+ + + + [...] 05/23/2004, for hip pain who returns to [facility] after a right hip [...] states, that he recieves a letter from [facility] indicating the continued need. She has [...]
--- OUTSIDE RECORDS SUMMARY | ~2020-05-01 | XMS | Encounter Summary ---
Demographics + + + | Address | [address] | | | [place] [address] | + + + | Home Phone [...] | | | | [address] | [phone] | | | | | [address] | | | | | | [phone] | | | +--------+ + + + [...] | | | | | | [place] [address] | | | | | | [address] | | | | | | | [...]
--- OUTSIDE RECORDS SUMMARY | ~2020-05-01 | XMS | Encounter Summary ---
Demographics + + + | Address | [address] | | | [place] [address] | + + + | Home Phone [...] + +------+ + | Care Used Car Make Ready Worker Name | Role | Phone | + +------+ + | Marta Jenkins PHOTOCOPIER TECHNICIAN | PCP | | + +------+ + Encounter Details +--------+ + + + + | Date | Type | Department | Care Team | Description | +--------+ + + + + | 11/18/ | Abstract | Dig[facility]ive [facility] | Clinic, Surgery | | | 2019 | | Center at [facility] [address] | | | | | | [address] [facility] | | | | | | for Health and | | | | | | Healing, [address] | | | | | | [place], [place] | | | | | | [address] | | | | | | [phone] | | | +--------+ + + + [...]
--- OUTSIDE RECORDS SUMMARY | ~2020-05-01 | XMS | Encounter Summary ---
Demographics + + + | Address | [address] | | | [place] [address] | + + + | Home Phone [...] Providers + +------+ + | Care Gear Lapper Name | Role | Phone | [...] | Transcriptions | + + | Interface, Appeals Specialist In - 02/27/2006 3:05 AM PDT Date: [...] | | Malcom GarciaRT/aceD: 09/14/2003T: 09/15/2003 9:10 [id number] | |bellberna. The proximal greater trochanter fragment [...] |RT/magalie | | | | A | |[id number] | + + documented in this encounter Visit Diagnoses Not on filedocumented in this encounter"
--- OUTSIDE RECORDS SUMMARY | ~2020-05-01 | XMS | Encounter Summary ---
Demographics + + + | Address | [address] | | | [place] [address] | + + + | Home Phone [...] Providers + +------+ + | Care Steward/Stewardess Smoke Room Name | Role | Phone | [...] Pavilion | | | | | | [place], [place] | | | | | | [address] | | | | | | [phone] | | | +--------+ + + + [...]
--- OUTSIDE RECORDS SUMMARY | ~2020-05-01 | XMS | Encounter Summary ---
Demographics + + + | Address | [address] | | | [place] [address] | + + + | Home Phone [...] Providers + +------+ + | Care Building Custodial Supervisor Name | Role | Phone | + +------+ + PCP | Unavailable | + +------+ + Encounter Details +--------+ + + + + | Date | Type | Department | Care Team | Description | +--------+ + + + + | // | Results | | Other, Faculty | | | 2003 | Only | | [phone] | | +--------+ + + + + [...] + + + + + | [facility] DEPARTMENT OF | [address] | [place] [address] | | | PATHOLOGY | [address] | | | + + + + + | [facility] DEPARTMENT OF | [address] | [place] [address] | | | PATHOLOGY | [address] [...] CENTER OF | [address] | [place] [address] | | | PATHOLOGY | [address] | | | + + + + + | [facility] | [address] | [place] [address] | | | PATHOLOGY | [address] [...] + + + | [facility] | [address] | [place] [address] | | | LABORATORY | | | [...] DEPARTMENT OF | [address] | [place] [address] | | | PATHOLOGY | [address] | | | + + + + + | [facility] DEPARTMENT OF | [address] | [place] [address] | | | PATHOLOGY | [address] [...] + + + + + | [facility] DEPARTMENT OF | [address] [facility] | [place] [address] | | | PATHOLOGY | [address] | | | + + + + + | [facility] DEPARTMENT OF | [address] | [place] [address] | | | PATHOLOGY | [address] [...] + + + + + | [facility] DEPARTMENT OF | [facility] [address] | [place] [address] | | | PATHOLOGY | [address] | | | + + + + + | [facility] DEPARTMENT OF | [address] | [place] [address] | | | PATHOLOGY | [address] [...] + | [facility] | [address] [facility] | [place] [address] | | | PATHOLOGY | [address] | | | + + + + + | [facility] | [address] [place] [address] | [place] [address] | | | PATHOLOGY | [address] [...] + | [facility] | [address] [facility] | [place] [address] | | | PATHOLOGY | [address] | | | + + + + + | [facility] | [facility] | [place] [address] | | | PATHOLOGY | [address] [...] DEPARTMENT OF | [address] | [place] [address] | | | PATHOLOGY | [address] | | | + + + + + | [facility] DEPARTMENT OF | [address] | [place] [address] | | | PATHOLOGY | [address] | | | + + + + + CREATININE, PLASMA (10/04/2003 6:15 AM PST) + +-------+ + + + | Component | Value | Ref Range | Performed | Pathologist | | | | | At | Signature | + +-------+ + + + | CREATININE | 0.8 | 0.6 - 1.1 mg/dL | [facility] | | | PLASMA | | | [...] + + + + + | [facility] DEPARTMENT OF | [address] [facility] | [place] [address] | | | PATHOLOGY | [address] | | | + + + + + | [facility] DEPARTMENT OF | [address] [facility] | [place] [address] | | | PATHOLOGY | [address] [...] DEPARTMENT OF | [address] | [place] [address] | | | PATHOLOGY | [address] | | | + + + + + | [facility] DEPARTMENT | [address] | [place] [address] | | | PATHOLOGY | [address] [...] + + + + + | [facility] DEPARTMENT OF | [address] | [place] [address] | | | PATHOLOGY | [address] | | | + + + + + | [facility] DEPARTMENT OF | [address] | [place] [address] | | | PATHOLOGY | [address] [...] + | [facility] | [address] | [place] [address] | | | PATHOLOGY | [address] | | | + + + + + | [facility] | [address] | [place] [address] | | | PATHOLOGY | [address] | | | + + + + + documented in this encounter Visit Diagnoses Not on filedocumented in this encounter"
--- OUTSIDE RECORDS SUMMARY | ~2020-05-01 | XMS | Encounter Summary ---
Demographics + + + | Address | [address] | | | [place] [address] | + + + | Home Phone [...] Team Providers + +------+ + | Care Setter Induction Heating Equipment Name | Role | Phone | + +------+ + | Travis Mcginnis MD | PCP | | + +------+ + Encounter Details +--------+ + + + + | Date | Type | Department | Care Team | Description | +--------+ + + + + | 07/01/ | Abstract | Orthopaedics | Note, Orthopedics | | | 2018 | | [facility] | | | | | [facility] | | | | | | Healing [address] | | | | | | e [facility] | | [facility], | | | | | | Building | | | | | | Floor [place], [place] | | | | | | [address] | | | | | | [phone] | | | +--------+ + + + [...] bone in back. 2009. Dr Lloyd Harris [facility] R JUAN DAVID 2002 Have you seen anyone for this yet? [place] in [place]. ED 06/24 [facility] in [facility]. Has had sepsis and MRSA and need to lose 35 lbs per this office. Eugenie [facility] [phone] 07/03 via phone MRI May 2018 CT [facility] impax X-Ray May 2018 XR [facility] impax CT no Ultrasound no Other [...] will you be traveling for this appointment? [place] Note: If patient traveling greater than 1 [...]
--- OUTSIDE RECORDS SUMMARY | ~2020-05-01 | XMS | Encounter Summary ---
Demographics + + + | Address | [address] | | | [place] [address] | + + + | Home Phone | | + + + | Preferred Language | Unknown | + + + | Marital Status | | + + + | Gnosticism Affiliation | 1076 | + + + | Race | Unknown | + + + | Ethnic Group | Unknown | + + + Author + + + | Author | [facility] | | | and [place] | + + + | Organization | [facility] | | | [...] Team Providers + +------+ + | Care Compress Machine Operator Name | Role | Phone | + +------+ + PCP | Unavailable | + +------+ + Encounter Details +--------+ + + + + | Date | Type | Department | Care Team | Description | +--------+ + + + + | 05/30/ | Hospital | [facility] | Augie Valdivia MD | | | 2011 | Encounter | MED CTR [facility] OP | [address], [place] | | | | | [address] | [address] | | | | | [place] | [address] | | | | | [address] | | | | | | [phone] | | | +--------+ + + + [...] [place] | | | | | | [address] | | | | | | | | +--------+---------+ + + + documented as of this encounter Visit Diagnoses Not on filedocumented in this encounter"
--- OUTSIDE RECORDS SUMMARY | ~2020-05-01 | XMS | Encounter Summary ---
Demographics + + + | Address | [address] | | | [place] [address] | + + + | Home Phone [...] Team Providers + +------+ + | Care Shotgun Shell Reprinting Unit Operator Name | Role | Phone | [...] | | | [address] | [place] [address] | | | | | [address] | | | | | | [place] Alfredo, [address] [place] [address] | | | | | | [place], [place] | | | | | | [address] | | | | | | [phone] | | | +--------+ + + + [...] view image for the detailed interpretation from [employer] results. | CARDIOLOGY | | | | + + + + + + + + | Performing | Address | City/State/Zipcode | Phone Number | | Organization | | | | + + + + + | [facility] | [address] | [place], [place] | | | CARDIOLOGY | [address] | [address] | | + + + + + | [facility] | [address] | [place], [place] | | | CARDIOLOGY | [address] | [address] | | + + + + + documented in this encounter Visit Diagnoses + + | Diagnosis | + + | Other specified pre-operative examination | + + documented in this encounter
--- OUTSIDE RECORDS SUMMARY | ~2020-05-01 | XMS | Encounter Summary ---
Demographics + + + | Address | [address] | | | [place] [address] | + + + | Home Phone [...] Team Providers + +------+ + | Care Drop Wire Builder Name | Role | Phone | [...]
--- OUTSIDE RECORDS SUMMARY | ~2020-05-01 | XMS | Encounter Summary ---
Demographics + + + | Address | [address] | | | [place] [address] | + + + | Home Phone [...] Team Providers + +------+ + | Care Woodwork Teacher Name | Role | Phone | [...] [facility] | | | | | | [address] | | | | | | Loop [facility] | | | | | | [place], [facility] Floor | | | | | | [place], [place] | | | | | | [address] | | | | | | [phone] | | | +--------+ + + + [...] + + + +---------+ + + | Kinder-3 Fatty | Take by mouth. | | [...]
--- OUTSIDE RECORDS SUMMARY | ~2020-05-01 | XMS | Encounter Summary ---
Demographics + + + | Address | [address] | | | [place] [address] | + + + | Home Phone [...] Providers + +------+ + | Care Clinical Training Coordinator Name | Role | Phone [...] | | | | Mailcode: [address] | [place], [place] | | | | | [address] | [address] | | | | | [place], [place] | [phone] | | | | | [address] | | | | | | [phone] | | | +--------+ + + + [...]
--- OUTSIDE RECORDS SUMMARY | ~2020-05-01 | XMS | Encounter Summary ---
Demographics + + + | Address | [address] | | | [place] [address] | + + + | Home Phone [...] Providers + +------+ + | Care Clinical Academic Allergist Name | Role | Phone | + [...] | | | | | Roxann Ayala [place] | | | | | | [place] [address] | | | | | | [phone] | | +--------+ + + + + [...] by | | | | | | [facility] | | | | | | [facility]. | | | | + + + + + + + + | Specimen | + + | | + + + + + + + | Performing | Address | City/State/Zipcode | Phone Number | | Organization | | | | + + + + + | [facility] | [address] | [place] [address] | | | LABORATORY | | | | + + + + + documented in this encounter Visit Diagnoses Not on filedocumented in this encounter"
[~2020-05-01 10:24] MED LIST changes: +DICLOFENAC SOD100 G1 TOP; +DICLOFENAC SODI75 MG PO; +DOK PLUS TABLE1 EACH PO; +NYAMYC15 GM TOP; +OXAYDO5 MG PO; +PANTOPRAZOLE SO40 MG PO; +POLYETHYLENE GL17 GM PO; +SULFAMETHOXAZO1 EAC1 PO
[2020-05-01] MEDS ORDERED: LIDOCAINE PAIN1 EACH TD (13:13)
[2020-05-01] MEDS ORDERED: PREDNISONE20 MG PO (13:13)
== END 2020-05-01 13:55 | disposition home or self-care (01) ==
LOC: ED 10:24
DX: M46.1 Sacroiliitis, not elsewhere classified (principal); I10 Essential (primary) hypertension; J44.9 Chronic obstructive pulmonary disease, unspecified; F32.9 Major depressive disorder, single episode, unspecified; F17.200 Nicotine dependence, unspecified, uncomplicated; Z88.5 Allergy status to narcotic agent; Z88.8 Allergy status to other drugs, medicaments and biological substances; Z79.899 Other long term (current) drug therapy
CPT/HCPCS: 80053; 81001; 85025; 96374; 96375; 99283-25; J1100; J1885; J2270; J2405

== ENCOUNTER 2020-10-17 12:04 | Emergency (ER) | payer OTHER ==
[~2020-10-17] VITALS: Ht 162.6 cm; Wt 135.7 kg
[~2020-10-17 12:04] MED LIST changes: +LIDOCAINE PAIN1 EACH TD
[2020-10-18] MEDS ORDERED: VENTOLIN HFA18 GM INH (07:47)
[2020-10-18] MEDS ORDERED: HYDROCODON-ACE1 EA10 PO (07:48)
[2020-10-18] MEDS ORDERED: ALBUTEROL2.5 MG/3 M INH (15:24)
[2020-10-18] MEDS ORDERED: STOOL SOFTENER1 EACH PO (15:31)
[2020-10-18] MEDS ORDERED: PERCOCET 5-3251 EACH PO (18:38)
== END 2020-10-17 12:25 | disposition left against medical advice (07) ==
LOC: ED 12:04
DX: Z53.21 Procedure and treatment not carried out due to patient leaving prior to being seen by health care provider (principal)

== ENCOUNTER 2020-10-18 07:36 | Inpatient (IN) | payer OTHER ==
[~2020-10-18] VITALS: Ht 162.6 cm; Wt 123.1 kg
--- NOTE | ~2020-10-18 | DS ---
[facility] [address] [place], [place] [address] [place] ADMISSION DATE: 10/18/2020 DISCHARGE DATE: 10/21/2020 REASON FOR ADMISSION: Presumed small-bowel obstruction. HISTORY OF PRESENT ILLNESS: This morbidly obese, BMI 46.60, white woman has been hospitalized in this institution on a number of occasions including admission by Dr. Scott for bowel obstruction, managed nonoperatively in the past with four days of nasogastric tube decompression. She has had laparoscopic cholecystectomy by Dr. Scott in the past as well. She presented to emergency room for complaints of abdominal pain, vomiting, and so on. She had presented a day earlier but left as another patient had been brought in before her. She returned however and was seen by Dr. Antionette Rose to the hospital by EMS services with diffuse abdominal pain. She had a bowel movement five days previously. The patient has long-standing chronic hip pain for which a hip replacement is anticipated when she looses 50 pounds and stop smoking. She is managed by a provider elsewhere (Dr. Angel) as other area physicians have dismissed her from their practice for noncompliance particular regarding antihypertensive medication which she refuses to take. Her other medical problems include depression, hypertension, diverticulosis, episodes of diverticulitis in the past, COPD, asthma, and daily smoking. Additionally, she has had hysterectomy, open cholecystectomy, x2, appendectomy, right hip surgery, and renal stents. She is admitted for further evaluation and care following a CT scan which showed findings suggestive of small bowel obstruction. PHYSICAL EXAMINATION: GENERAL: A cooperative white woman is markedly obese in the abdomen. HEENT: Mucous membranes were dry. Trachea midline. CHEST: Shows normal respiratory excursion without tachypnea. ABDOMEN: Quite impressively obese. Mild tenderness is noted throughout. There is no focal tenderness. No sign of incisional hernia. Abdominal obesity precludes entire examination of those incisions, however. EXTREMITIES: She has chronic dermatitis of lower extremities. LABORATORY DATA: Admission lab studies showed a white count of 15.4, hematocrit 43.8, platelets 403,000. Electrolytes normal, creatinine 0.72, lipase was normal. CT scan showed findings of early partial bowel obstruction and diverticulosis without inflammation. Additionally, noted was a urinalysis which was abnormal and subsequently found to show findings consistent with urinary tract infection including E coli. PATIENT NAME: CHASTITY BONILLA DISCHARGE SUMMARY DATE OF : 58 REPORT #: [id number] PHYSICIAN: ANTIONETTE CHANEL MD PCP: NAKUL ANGEL MD REPORT IS CONFIDENTIAL AND NOT TO BE RELEASED WITHOUT AUTHORIZATION [facility] [address] [place] [id number] [place] HOSPITAL COURSE: The patient was admitted, though she refused any notion of placement of a nasogastric tube. This was not placed in the emergency room and she declined it on the floor as well. I had strongly recommended that she have this as a central portion part of her recovery from bowel obstruction, but she adamantly refused. She did also demand oral liquids which were not forthcoming other than some ice chips for comfort. She was observed closely and a followup KUB showed still some air in bowel loops suggestive of incomplete obstruction. Her lab studies improved with white count down to 11.1. Electrolytes normal. Creatinine normal at 0.69. The patient was emotionally labile in part related to the recent demise of her pet dog. I advised her that placement of nasogastric tube may improve and expedite her recovery. She allowed me to do this myself. It was certainly not possible by nursing personnel and IV sedation to a minimal degree with Ativan intravenously administered was given. The tube was passed without too much problem really and attached both to suck wall suction where clear fluid was withdrawn. No sign of bile. Within an hour she removed the tube and became completely uncooperative with the idea of replacement of it. She was maintained without a nasogastric tube on that basis, but also remained n.p.o. other than IV fluids and ice chips for comfort. She began having less abdominal pain and did start to pass flatus. She was given a liquid diet, advance to full and ultimately a solid diet which she tolerated well. By day of discharge, she is ambulating with assistance, though reluctantly self. Has had bowel movements. She is tolerating mashed potatoes and semi solid diet without problem. Of special note, her urinalysis which was abnormal ultimately showed findings of urinary tract infection with E coli and she was started while still n.p.o. on Ancef intravenously administered. She will be discharged to home with treatment for urinary tract infection as well. DISCHARGE MEDICATIONS: Include: 1. Bactrim DS one tablet p.o. b.i.d. #14. She will continue usual medications of albuterol inhaler two puffs q.4 hours as needed for wheezing. 2. Flexeril 10 mg p.o. as needed for muscle spasms. 3. Diclofenac 75 mg one tablet p.o. b.i.d. as needed for pain. 4. Nystatin powder 15 g apply topically b.i.d. as needed for skin rash. PATIENT NAME: CHASTITY BONILLA DISCHARGE SUMMARY DATE OF : 58 REPORT #: [id number] PHYSICIAN: ANTIONETTE CHANEL MD PCP: NAKUL ANGEL MD REPORT IS CONFIDENTIAL AND NOT TO BE RELEASED WITHOUT AUTHORIZATION [facility] [address] [place], [place] [address] [place] 5. Continue on oxycodone/Tylenol 5/325 one p.o. q.6h as needed for pain provided by her face painter. FOLLOWUP PLANS: No specific follow up will be needed in my office. The patient will continue with Dr. Angel, her self-described provider. Of note, I had recommended a treatment for a low-grade hypertension, systolic pressure of 172; the patient was adamant that she does not have hypertension and refused antihypertensive treatment. Nevertheless, she was given intravenous metoprolol during the course of hospitalization, but would have no more of it and certainly refused any oral antihypertensive at time of discharge. DISCHARGE DIAGNOSES: 1. Small bowel obstruction with spontaneous resolution primarily with bowel rest and intravenous fluid resuscitation. 2. Morbid obesity. 3. Chronic pain syndrome including left hip pain. 4. Reactive airways disease. 5. Persistent smoking. 6. Urinary tract infection. Incidentally noted on urinalysis and culture of Escherichia coli. MD TYRESE Jennings/REINA /[id number] cc: Dr. Antionette Angel Copies: ~ PATIENT NAME: CHASTITY BONILLA DISCHARGE SUMMARY DATE OF : 58 REPORT #: [id number] PHYSICIAN: ANTIONETTE CHANEL MD PCP: NAKUL ANGEL MD REPORT IS CONFIDENTIAL AND NOT TO BE RELEASED WITHOUT AUTHORIZATION
[2020-10-18] MEDS ORDERED: VENTOLIN HFA18 GM INH (07:47)
[2020-10-18] MEDS ORDERED: HYDROCODON-ACE1 EA10 PO (07:48)
--- NOTE | 2020-10-18 14:33 | NUR ---
PT ARRIVED FROM ED. PT WITH ABD PAIN 06/09, COMES AND GOES. PT ON ROOM AIR, LUNG SOUNDS DIMINISHED WITH EXPIRATORY WHEEZE. PT NAUSEATED, SAYING SHE JUST WANTS SOME WATER SO SHE CAN "THROW UP", PT CONTINUES TO REFUSE NG TUBE, BOWEL TONES ACTIVE. PT WITH CHRONIC NUMBNESS IN BLE, WITHOUT EDEMA. SKIN GROSSLY INTACT. SPOKE WITH DR. CHANEL REGARDING PAIN AND REFUSAL OF NG TUBE, DR. CHANEL TO WRITE ORDERS.
[2020-10-18] MEDS ORDERED: ALBUTEROL2.5 MG/3 M INH (15:24)
[2020-10-18] MEDS ORDERED: STOOL SOFTENER1 EACH PO (15:31)
--- NOTE | 2020-10-18 17:00 | NUR ---
Spoke with Shelby and she resides in an apartment and has a state paid cg who she thinks sees her 4.5 hours per week. She lives alone and manages ok. She has a walker. She denies needs and plans on going when cleared by MD. She is wanting to know what the plan is and I asked if she has seen the DrJuan Jose and she has. States he placed her on ice chips and plans to monitor her. We discussed it may take a day or so for the to determine what her needs will be. She states understanding. Pt begins getting out of bed, states she needs the bathroom, asked if she wait for the aid to walk with her. Aid called and to the room immediately to assist pt.
--- NOTE | 2020-10-18 17:20 | NUR ---
PT RESTING IN BED. PT REQUESTING PAIN MEDICATION, RATING PAIN 7/10, PT FALLS ASLEEP DURING CONVERSATION, TORADOL NOT AVAILABLE UNTIL 2330, DISCUSSED WITH PT. PT ASKING ABOUT EATING DINNER, EDUCATED ON BOWEL REST FOR SMALL BOWEL OBSTRUCTION.
--- NOTE | 2020-10-18 18:15 | NUR ---
PT ADMITTED FROM ED. PT ON ROOM AIR, LUNG SOUNDS DIMINISHED WITH EXPIRATORY WHEEZE. PT WITH ABD PAIN, GIVEN TORADOL, RATES PAIN HIGH THEN FALLS ASLEEP. PT RECEIEVD LR BOLUS AND NOW LR AT 125ML/HR. NPO EXPECT FOR ICE FOR COMFORT. PT VOIDING QS. UP WITH 1PA WITH FWW.
--- NOTE | 2020-10-18 18:18 | NUR ---
PATIENT IN BED RESTING WITH EYES CLOSED. CALL LIGHT IN REACH. NO FURTHER NEEDS AT THIS TIME. VITALS AND I&O'S CHARTED.
[2020-10-18] MEDS ORDERED: PERCOCET 5-3251 EACH PO (18:38)
--- NOTE | 2020-10-18 18:39 | NUR ---
MED REC COMPLETE
--- NOTE | 2020-10-18 19:30 | NUR ---
CALL LIGHT ANSWERED. 1PA/SBA TO BEDSIDE COMMODE. PATIENT HAD A BOWEL MOVEMENT HARD FORMED LOOKING APPEARANCE, 5 PIECES IN A SIZE OF POPSICLE. BED LINEN CHANGED DUE TO SOILED FROM PATIENT'S HAND TRIED TO WIPE HERSELF. PATIENT IS BACK IN BED. CALL LIGHT IN REACH.
--- NOTE | 2020-10-18 19:32 | NUR ---
SHIFT REPORT FROM NURSE HAM. PT ASLEEP IN BED. SOME SANGUINOUS DISCHARGE FROM D/C'D IV. NURSE HAM REBANDAGED. NO FURTHER NEEDS AT THIS TIME. CALL LIGHT WITHIN REACH
--- NOTE | 2020-10-18 21:20 | NUR ---
CALL IN TO DR CHANEL. PT REPORTS ABDOMINAL PAIN 06/09. ORDER FOR IV OFIRMEV Q6 PRN. SEE EMAR.
--- NOTE | 2020-10-18 22:00 | NUR ---
VS AND ASSESSMENT COMPLETE. SPO2 87% ON RA. 1L O2 PER NC APPLIED. PT REPORTS FEELING HUNGER ALTHOUGH IS COMPLIANT WITH NPO STATUS. PT DOZES OFF EASILY ALSO DURING ASSESSMENT AND VS. IVF WNL, PT CALLS APPROPRIATELY. CALL LIGHT WITHIN REACH.
--- NOTE | 2020-10-18 22:15 | NUR ---
SPOT CHECK SPO2. PT IS AT 95% ON 1L NC. PT STATED THAT NORMALLY SHE WEARS O2 "IN THE HOSPITAL". NO FURTHER NEEDS AT THIS TIME.
--- NOTE | 2020-10-18 23:00 | NUR ---
IV PUMP ALARMING. PROBLEM RESOLVED. PT REQUESTS SCDS BE REMOVED FOR A TIME SHE IS SWEATING A LOT UNDER SCDS. NO FURTHER NEEDS AT THIS TIME.
--- NOTE | 2020-10-19 00:35 | NUR ---
CHECKED ON PT. PT APPEARS TO BE SLEEPING WITH EYES CLOSED AND EVEN BREATHING. NC IN NOSE. NO APPARENT SIGNS OF DISTRESS. CALL LIGHT WITHIN REACH
--- NOTE | 2020-10-19 01:23 | NUR ---
IV PUMP ALARMING. NEW IVF HUNG. PT SLEPT SOUNDLY WITH SLIGHT SNORING WHEN THIS NURSE WAS IN ROOM. NO FURTHER NEEDS AT THIS TIME. CALL LIGHT WITHIN REACH
--- NOTE | 2020-10-19 01:56 | NUR ---
PATIENT CALLED TO USE THE BEDSIDE COMMODE. SBA. PATIENT IS BACK IN BED.
--- NOTE | 2020-10-19 02:00 | NUR ---
PT REQUESTS PRN PAIN MEDS FOR ABDOMINAL PAIN 04/08. PRN TORADOL ADMINISTERED IV. CALL LIGHT PLACED WITHIN REACH. NO FURTHER NEEDS AT THIS TIME.
--- NOTE | 2020-10-19 07:15 | NUR ---
BEDSIDE HANDOFF REPORT RECEIVED FROM EXTENSION WORKER RN. PT SLEEPING, LEFT UNDISTURBED.
--- NOTE | 2020-10-19 09:00 | NUR ---
ANSWERED CALL LIGHT, PATIENT CRYING. C/O HEADACHE AND HUNGRY. PATIENT REMINDED OF NPO STATUS, "I DON'T CARE, I THINK IT'LL MAKE ME FEEL BETTER" THIS RESEARCH INTERVIEWER ASSURED HER THAT WAS NOT THE CASE. 1PA TO BSC, LINENS CHANGED, PATIENT REFUSED TO WIPED AFTER TOILET. WASH CLOTH FOR EYES, AND CALL LIGHT IN REACH. RN NOTIFIED.
--- NOTE | 2020-10-19 09:40 | NUR ---
PT RESTING IN BED. PT RATING PAIN 7/10 TO ABD BUT 8/10 TO HEADACHE, GIVEN TORADOL IV. PT DENIES NAUSEA BUT STATES ABD HURTS, ASKING ABOUT EATING BREAKFAST, REINFORCED THAT PT IS NPO FOR BOWEL REST. PT ON 1L NC, LUNG SOUNDS DIMINISHED THROUGHOUT. CMS INTACT, SCDS REPLACED ON BLE. IV FLUIDS INFUSING LR AT 125ML/HR. BOWEL TONES ACTIVE. PT PROVIDED WITH SMALL AMOUNT OF ICE CHIPS FOR COMFORT. MORNING MEDICATIONS ADMINISTERED BY NURSING STUDEN WITH SUPERVISION FROM THIS RN. PT FALLS ALSLEEP EASYLY THROUGHOUT ASSESSMENT.
--- NOTE | 2020-10-19 11:16 | NUR ---
v/s and I&Os done and recorded. FLIGHT RADIO OFFICER assisted pt. to bed side commode and back to bed. no other needs at this time. call light within reach
--- NOTE | 2020-10-19 13:00 | NUR ---
PT RESTIGN IN BED. PER ORDER 1MG IV ATIVAN GIVEN. SUPPLIES FOR NG TUBE PLACEMENT AT BEDSIDE. PT UPSET AND ANXIOUS ABOUT NG TUBE PLACEMENT. PT DENIES OTHER NEEDS AT THIS TIME.
--- NOTE | 2020-10-19 14:20 | NUR ---
HERMINIO HAM REQUESTED I LET PT REST AT THIS TIME. WILL CHECK BACK AGAIN
--- NOTE | 2020-10-19 15:13 | HP ---
[facility] [address] [place], [place] [address] Signed ADMISSION DATE: 10/18/2020 REASON FOR ADMISSION: Abdominal pain, vomiting, possible bowel obstruction. HISTORY OF PRESENT ILLNESS: This morbidly obese 60-year-old white woman has been hospitalized at this institution on a number of occasions. This has included admission by Dr. Scott for bowel obstruction. She presented to the emergency room yesterday for complaints of abdominal pain and vomiting and so forth. She was unhappy that an another patient in the waiting area was seen ahead of her who had a headache and therefore left the hospital yesterday and disgruntled about that. She returned today, however, and was seen by Dr. Antionette Rose. Notably, she was transferred by EMS services. She has had diffuse abdominal pain. She had a bowel movement approximately 5 days ago, but she still has flatus. The patient lives alone. She has children who have gone far away and does not even know really where they live or anything about them anymore. She continues to smoke on a daily basis. Her long standing history includes chronic left hip pain for which a hip replacement is anticipated. She has undergone right hip replacement she says. She is known to have depression, hypertension, diverticulosis and episodes of diverticulitis in the past in addition to COPD and asthma. She is an everyday smoker but does not take illicit drugs. SURGICAL HISTORY: Includes hysterectomy, open cholecystectomy, x2, appendectomy, right hip operation, and renal stents in the past. ALLERGIES: She has allergies to Levaquin, atorvastatin and morphine. MEDICATIONS: At home include amlodipine 5 mg daily, though I doubt she takes it; she says that she does not have hypertension and refuses to take medicines prescribed by her physicians. She has been on MiraLAX as well and takes a lidocaine pain patch for her hip pain. REVIEW OF SYSTEMS: Denies any chest pain or shortness of breath particularly. She does have some left hip Electronically Signed By: ANTIONETTE CHANEL MD 10/19/20 1513 PATIENT NAME: CHASTITY BONILLA HISTORY AND PHYSICAL DATE OF : 58 REPORT #: [id number] PHYSICIAN: ANTIONETTE CHANEL MD PCP: NAKUL ANGEL MD REPORT IS CONFIDENTIAL AND NOT TO BE RELEASED WITHOUT AUTHORIZATION [facility] [address] [place], [place] [address] Signed pain chronically. She does have some diffuse abdominal pain, nonfocal and not worsening. PHYSICAL EXAMINATION: GENERAL: This is a cooperative white woman who is quite markedly obese in the abdomen. HEENT: Mucous membranes are dry. Trachea is midline. CHEST: Shows normal respiratory excursion without tachypnea. ABDOMEN: Quite impressively obese. Mild tenderness is noted throughout. There is no focal tenderness. I see no evidence of incisional hernia though her abdominal obesity precludes entirely accurate exam. EXTREMITIES: Show chronic dermatitis in the lower extremities. LABORATORY STUDIES: Show white count of 15.4, hematocrit 43.8, platelets 403,000. Electrolytes are normal. Creatinine 0.72, bicarb 29. Liver enzymes are normal. Lipase is . CT scan was reviewed. Interpretation by Dr. Sands was suggestive of early or partial small-bowel obstruction and diverticulosis without inflammation. Thickening of the abdominal wall pannus skin is noted as well. My review of the x-ray does not show a focal transition point, certainly no sign of incisional hernia. No volvulus. ASSESSMENT: The patient tells me her primary care physician does not reside here as there are few if any local providers who will assist her in her care because she is noncompliant generally. She has noncompliance specifically regarding her blood pressure consideration. Her current systolic pressure right now is 174, diastolic 94. I would generally recommend a nasogastric tube for decompression of the bowel. Review of the CT scan does not show a distended stomach and small bowel loops though slightly dilated are not suggestive of massive and total obstruction in any way. She refuses a nasogastric tube at this time unless she has "sedation." She does want some liquids orally which will not be possible considering those aforementioned factors regarding the nasogastric tube. We will allow some ice chips and IV fluid resuscitation. Pain medication to include non-opiate Toradol and observation. If it becomes more necessary, then nasogastric tube be placed and consideration might be made for intravenous sedation concurrently. In general terms, the patient is rather uncooperative and apparently known for such behavior. That should not preclude successful resolution of her small bowel obstruction (if present) with a conservative approach. If operative intervention is needed, it Electronically Signed By: ANTIONETTE CHANEL MD 10/19/20 1513 PATIENT NAME: CHASTITY BONILLA HISTORY AND PHYSICAL DATE OF : 58 REPORT #: [id number] PHYSICIAN: ANTIONETTE CHANEL MD PCP: NAKUL ANGEL MD REPORT IS CONFIDENTIAL AND NOT TO BE RELEASED WITHOUT AUTHORIZATION [address] [address] Signed certainly could be done. Antionette Chanel MD JM/MODL /[id number] cc: Dr. Antionette Angel MD Copies: NAKUL ANGEL MD ~ Electronically Signed By: ANTIONETTE CHANEL MD 10/19/20 1513 PATIENT NAME: CHASTITY BONILLA HISTORY AND PHYSICAL DATE OF : 58 REPORT #: [id number] PHYSICIAN: ANTIONETTE CHANEL MD PCP: NAKUL ANGEL MD REPORT IS CONFIDENTIAL AND NOT TO BE RELEASED WITHOUT AUTHORIZATION
--- NOTE | 2020-10-19 16:00 | NUR ---
THIS RN RECEIVED REPORT FROM PINKY DURHAM. THIS RN TO ASSUME CARE AT THIS TIME
--- NOTE | 2020-10-19 16:15 | NUR ---
PT AC, BED ALARM PLACED ON. O2 SATS CHECKED LOW 80'S ON ROOM AIR, OXYGEN PLACED VIA NC 3L, CONTINUOUS PULSE OX ON.
--- NOTE | 2020-10-19 16:31 | NUR ---
PT PULLED NG TUBE, DR. CHANEL NOTIFIED, ORDER TO REINSERT NG TUBE. PT REFUSING TO HAVE NEW TUBE PLACED, DR. CHANEL NOTIFIED, NO NEW ORDERS AT THIS TIME.
--- NOTE | 2020-10-19 17:40 | NUR ---
PTS HEAD OF BED UP 40 DEGREES AT THIS TIME. PT ON CPOX. PT APPEARS TO BE RESTING COMFORTALBY AT THIS TIME
--- NOTE | 2020-10-19 17:57 | NUR ---
2CNAs assisted DR. Bhakta while he placed a NG tube in the pt. Pt. later pulled out her NG tube and refused to have another NG tube placed. v/s and I&Os done and recorded. no other needs at this time. call light with in reach
--- NOTE | 2020-10-19 19:00 | NUR ---
CALL LIGHT RINGING. PATIENT STATES TO THIS FORKLIFT SUPERVISOR " WHAT THE F---? WHAT'S THE PLAN FOR ME? THIS FORKLIFT SUPERVISOR REMINDS PATIENT SHE PULLED NG OUT AND REFUSED ANOTHER, SO WE'D HAVE TO WAIT TO SEE WHAT DR CHANEL'S NEXT ORDER/PLAN IS. PATIENT STATES SHE WANTS HERE NOW. "I HAVEN'T EATEN IN 7 DAYS, I'M JUST GONNA HAVE A FRIEND BRING ME SOMETHING" RN NOTIFIED. PATIENT ALSO STATES SHE MAY JUST LEAVE TONIGHT AND COME BACK TOMORROW "FOR THE PROCEDURE" THIS FORKLIFT SUPERVISOR AND FLETCHER FATIMA IN ROOM SEVERAL TIMES, ANSWERING CALL LIGHT AND ANSWERING PATIENTS QUESTIONS. CALL LIGHT IN REACH.
--- NOTE | 2020-10-19 19:21 | NUR ---
SHIFT REPORT FROM STUDENT NURSE CHRISTIANA AND NURSE JS. PT REPORTS SHE DOESNT "UNDERSTAND WHAT IS GOING ON". THIS NURSE AND JS ATTEMPTED TO EDUCATE PT ON SMALL BOWEL OBSTRUCTIONS AND PT'S CURRENT STATUS. PT REPEATEDLY REQUESTED FOOD SUCH CREAM OF WHEAT AND A PEANUT BUTTER SANDWICH. PT ALSO REMARKED THAT SHE WOULD HAVE A VISITOR COME TO BRING FOOD. THIS NURSE INFORMED PT THAT THIS WOULD BE AGAINST MEDICAL ADVICE. PT REPORTS THAT "MAYBE I WILL JUST LEAVE AND GO EAT AND COME BACK TOMORROW". WILL CONTINUE TO MONITOR. BED ALARM ON FOR SAFETY.
--- NOTE | 2020-10-19 20:00 | NUR ---
PT CALLED, UP TO VOID AT BSC, RN IN , GOT VITALS, NO FURTHER NEEDS
--- NOTE | 2020-10-19 20:10 | NUR ---
ROUNDED CHARGE. PRIMARY RN IN ROOM. pt RESTING IN BED. NO NEEDS AT THIS TIME.
--- NOTE | 2020-10-19 20:43 | NUR ---
IN ROOM FOR EVENING MEDS AND ASSESSMENT. PRN TORADOL 30MG ADMINISTERED IV. PT CONTINUES TO REQUEST FOOD AND CLAIMS TO "NOT UNDERSTAND WHAT IS GOING ON" AND THAT SHE "CANT GO 7 DAYS WITHOUT FOOD". PT EDUCATED ON FOOD VS GASTRIC CONTENTS VS SBO ONCE AGAIN. PT ENCOURAGED TO FOLLOW POC. PT CALMS AND SAYS "MAYBE I'LL JUST LEAVE TOMORROW THEN". O2 PER NC TITRATED TO 2L. CPOX REMAINS ON PT WNL. CALL LIGHT PLACED WITHIN REACH. NO FURTHER NEEDS AT THIS TIME.
--- NOTE | 2020-10-19 20:46 | NUR ---
CALL LIGHT ANSWERED. CPOX ALARMING, SPD ALERT, SETTINGS ADJUSTED. SPO2 99% ON 2L OXYGEN BY NC. pt HAS NO ADDITIONAL NEEDS AT THIS TIME.
--- NOTE | 2020-10-19 21:03 | NUR ---
CALL LIGHT ANSWERED pt STATES "I NEED TO GET MY SHIT TOGETHER AND GET OUT OF HERE IF YOU'RE NOT GOING TO FEED ME". THIS RN IN pt ROOM. EDUCATION PROVIDED ON PLAN OF CARE AND AGREEMENT WITH PRIMARY RN TO STAY NIGHT. pt STATES "I THOUGHT I ALREADY DID STAY THE NIGHT". REORIENTED TO TIME OF DAY, pt VERBALIZES UNDERSTANDING. NO NEEDS AT THIS TIME.
--- NOTE | 2020-10-19 21:45 | NUR ---
PHONE CALL FROM . DIET ADVANCED TO CLEAR LIQUIDS, PO SLEEP MEDICATION, AND IV ANTIBIOTIC. ORDERS REPEATED BACK TO VERIFY.
--- NOTE | 2020-10-19 22:00 | NUR ---
IN TO ASST PT UP TO THE BSC, REPLACED CPOX SENSOR, PT ATE JELLO, ASKING FOR MORE JELLO AND ICE CHIPS, ADJ PT BED SO SHE CAN VEIW THE TV BETTER, PT ALSO REQESTING LINO, RN IS AWARE
--- NOTE | 2020-10-19 22:15 | NUR ---
IN ROOM TO ADMINISTER MELATONIN. PT IS TOLERATING JELLO THUS FAR. PT GIVEN SOME MORE ICE CHIPS, SMALL DRINK TO TAKE PILLS. CALL LIGHT WITHIN REACH. NO FURTHER NEEDS AT THIS TIME
--- NOTE | 2020-10-19 23:22 | NUR ---
IN ROOM TO ADMINISTER ORDERED ANTIBIOTICS. PT SLEEPING, EVEN UNLABORED BREATHING, LAYING LEFT LATERAL. CPOX WNL.
--- NOTE | 2020-10-20 00:56 | NUR ---
CHECKED ON PT. PT SLEEPING, LAYING LEFT LATERAL. NO APPARENT SIGNS OF DISTRESS. CALL LIGHT WITHIN REACH
--- NOTE | 2020-10-20 02:18 | NUR ---
PT HEARD YELLING OBSCENITIES FROM HER ROOM. NURSING STAFF ENTERS ROOM, PT IS FLUSTERED SAYING THAT SHE COULDNT FIND THE CALL LIGHT SO SHE "HAD TO PEE THE BED". CALL LIGHT IS DIRECTLY BESIDE PT ON BED SIDE TABLE WITHIN REACH. SBA FWW TO RECLINER SO STAFF COULD CHANGE BEDDING. PT REQUESTED A SHOWER SO SUPPLIES WERE ORGANIZED TO PERFORM A SHOWER HOWEVER PT REFUSES SHOWER AT LAST MINUTE STATING SHE IS "TOO TIRED NOW". PT RETURNED TO BED, PERIAREA CLEANED WITH BATH WIPES. BROWN/COBB EXUDATE WITH STRONG ODOR CLEANED FROM PANUS FOLDS. FRESH GOWN APPLIED. PT REQUESTS ANOTHER JELLO AND SOME ICE CUBES WHICH ARE PROVIDED. CALL LIGHT PLACED WITHIN REACH. NO FURTHER NEEDS AT THIS TIME.
--- NOTE | 2020-10-20 04:05 | NUR ---
CHECKED ON PT. PT IN BED, APPEARS TO BE SLEEPING, EVEN UNLABORED BREATHING. NO SIGNS OF DISTRESS. CALL LIGHT WITHIN REACH
--- NOTE | 2020-10-20 04:21 | NUR ---
IN TO ASST PT UP TO THE BSC, ASKING FOR MORE JELLO, PROVIDED AT THIS TIME
--- NOTE | 2020-10-20 05:30 | NUR ---
CALL LIGHT ANSWERED. PT REQUESTS MORE TO EAT. POPSICLE BROUGHT TO PT WHICH SHE TOOK AND BEGAN EATING IMMEDIATELY.PT REQUESTS A JELLO ALSO. ENCOURAGED PT TO TAKE EATING SLOW SO WE WILL SEE HOW THE POPSICLE DOES. CALL LIGHT WITHIN REACH. NO FURTHER NEEDS AT THIS TIME
--- NOTE | 2020-10-20 06:33 | NUR ---
CALL LIGHT ANSWERED. PT UP TO BSC TO VOID. PT PARTIALLY INCONTINENT IN BED. LARGE VOLUME CLOUDY YELLOW URINE WITH STRONG ODOR NOTED. PT REPORTS NAUSEA/ ABDOMINAL PAIN UPON RETURNING TO BED AND THEN IMMEDIATELY ASKS FOR MORE JELLO. DENIED PT JELLO AT THIS TIME D/T NAUSEA. PT SEEMS UNABLE TO CORRELATE HER EATING WITH CURRENT DIAGNOSIS. BP WAS 174/89. PT REPORTS "MY BLOOD PRESSURE IS ALWAYS HIGH WHEN I'M IN PAIN". PRN TORADOL OFFERED AND ACCEPTED BY PT. 30MG IV TORADOL ADMINISTERED AT THIS TIME. CALL LIGHT WITHIN REACH. NO FURTHER NEEDS AT THIS TIME.
--- NOTE | 2020-10-20 06:55 | NUR ---
PHONE CALL FROM , UPDATED ON pt BP, URINE MICROBIOLOGY. NEW ORDERS RECEIVED AND REPEATED BACK. ORDERS UPDATED.
--- NOTE | 2020-10-20 07:30 | NUR ---
REPORT RECEIVED FROM VETERINARY DENTIST RN HOLLIE. PT SLEEPING ON 2 L O2 VIA NC D/T MAMADOU. NO NEEDS AT THIS TIME. CALL LIGHT IN REACH.
--- NOTE | 2020-10-20 09:00 | NUR ---
IV TYLENOL GIVEN FOR ABDOMINAL PAIN. PT DENIES NAUSEA. ENCOURAGED TO GET UP TO CHAIR, PT REFUSING. UP TO BSC TO VOID 650 MLS. BACK INTO BED REFUSING SCD'S. ASKING FOR FOOD, PT EDUCATED TO WHY SHE IS ON CLEAR LIQUID DIET TO ALLEVIATE BOWELS D/T PARTIAL SBO. BOWEL TONES ARE ACTIVE AND PT IS PASSING GAS.
--- NOTE | 2020-10-20 11:00 | NUR ---
PT UP TO SHOWER W/ ASSISTANCE OF [place]. TOLERATED WELL. PT NOW BACK IN BED. REFUSING TO BE UP IN CHAIR DESPITE ENCOURAGEMENT OF RN. BOWEL TONES ARE ACTIVE, PASSING GAS BUT NO BM TODAY. PT REMAINS ON CLEAR LIQUID DIET AND IS REQUESTING SOLID FOODS BUT EDUCATED PT ON NEED TO REMAIN ON CLEAR LIQUIDS TO GIVE STOMACH A REST PT STILL FEELS NAUSEOUS AFTER LIQUID INTAKE.
--- NOTE | 2020-10-20 12:25 | NUR ---
PATIENT TOOK A SHOWER SHE NEEDED A LOT OF HELP. HELPED HER PUT A NEW GOWN ON. AFTER HER SHOWER HAD HER SIT UP IN HER CHAIR SO I COULD CHANGED THE BED LINENS. THAN SHE WANTED TO GO BACK TO BED. HER VISITOR COMBED HER HAIR AND PUT IT IN A PONY TAIL TO GET IT OUT OF HER FACE. PATIENT IS NOW SLEEPING.
--- NOTE | 2020-10-20 13:15 | NUR ---
Spoke with Shelby and her cg. Shelby is asking frequently, "when can I eat." Discussed this will be up to Dr. Smith. She begins to cry and moan loudly. Rn states she can have a popsickle. She is wanting to know what she did yesterday and I let her know I'm not sure what she is talking about. She states she yelled at the Dr. She complains she cont. to have abd pain.
--- NOTE | 2020-10-20 13:32 | NUR ---
PT HAS EATEN SEVERAL JELLOS AND A POPSICLE SHE REMAINS ON A CLEAR LIQUID DIET. HAS BEEN REQUESTING SOLID FOODS AND HAS TAKEN FREQUENT REINFORCEMENT THAT IT IS NOT RECOMMENDED SHE ADVANCE HER DIET UNTIL CLEARED BY DR CHANEL. CALLED AND ORDERED KUB X-RAY UPRIGHT. X-RAY NOTIFIED.
--- NOTE | 2020-10-20 13:36 | NUR ---
PT TO X-RAY NOW VIA WHEELCHAIR.
--- NOTE | 2020-10-20 14:30 | NUR ---
IN TO GIVE IV METOPROLOL 10 MG, BP 161/87. PT REPORTS 5/10 ABDOMINAL PAIN AND HAS BEEN SLEEPING THROUGH IT. IV TYLENOL GIVEN EARLIER. IV ANCEF NOW INFUSING. PT REFUSES TO GET OUT OF BED AND UP INTO CHAIR. CALL LIGHT IN REACH. KUB XRAY REVIEW PENDING.
--- NOTE | 2020-10-20 15:30 | NUR ---
PT HAS BEEN ENCOURAGED TO ATTEMPT TO AMBULATE TURNER WITH STAFF. PT CONTINUES TO REFUSE. EDUCATED ON NEED FOR AMBULATION, DENIES NEED. WILL NOTIFY
--- NOTE | 2020-10-20 17:08 | NUR ---
PT AMBULATED TURNER APPROX 200 FT. TOLERATED MODERATELY WELL. ON 2 L O2 NC W/ AMBULATION. C/O RIGHT HIP DISCOMFORT. PT BACK TO BED AND CREAM O WHEAT ORDERED NOW THAT DR. CHANEL HAS CLEARED PT TO FULL LIQUID DIET. PLACED BACK ON SCD'S. IV TORADOL GIVEN PRIOR TO AMBULATION. ABDOMINAL PAIN HAS SLIGHTLY IMPROVED. PT DENIES NAUSEA. CALL LIGHT IN REACH. NO OTHER NEEDS AT THIS TIME.
--- NOTE | 2020-10-20 18:43 | NUR ---
PT TOLERATED FULL LIQUID DINNER WELL. DENIES PAIN OR NAUSEA. URINE OUTPUT HAS BEEN ADEQUATE. LR INFUSING @ 125 MLS/HR. 20 G IV IN L WRIST PATENT AND FLUSHING WELL. PT IN BED NOW. VISUALIZED CHEST RISE AND FALL, EYES CLOSED. PT ON 1 L O2 VIA NC WHILE SLEEPING. CALL LIGHT IN REACH.
--- NOTE | 2020-10-20 19:19 | NUR ---
RECEIVED REPORT FROM HERMINIO DESAI. pt SITTING IN CHAIR. TALKING ON PHONE. WHITEBOARD UPDATED. CALL LIGHT WITHIN REACH.
--- NOTE | 2020-10-20 19:35 | NUR ---
IN TO ASST PT TO THE BSC, PT INCT OF BM WHILE GETTING UP TO THE COMMODE, NEW GOWN PROVIDED TO PT, NOW BACK INTO BED AT THIS TIME, NO FURTHER NEEDS
--- NOTE | 2020-10-20 19:49 | NUR ---
PT CALLING, STATES HER PHONE IS MAKING A NOISE, ABLE TO DETERMINE THAT IV PUMP WAS THE SOURCE OF THE SOUND, NO FURHTER NEED
--- NOTE | 2020-10-20 20:47 | NUR ---
IN TO GIVE MEDICATIONS AND DO ASSESSMENT. pt STATED "I DON'T WANT ANY OF THAT, I DON'T HAVE HIGH BLOOD PRESSURE. I HAVE PAIN!" DISCUSSED IMPORTANCE OF BLOOD PRESSURE CONTROL. pt STATED "I HAVE A DOCTOR I WILL DISCUSS IT WITH HIM IF I FEEL IT IS AN ISSUE." INFORMED pt OF RIGHT TO REFUSE. pt STATED "WELL YOU HAVE TO GIVE IT TO ME OR INSURANCE WON'T PAY SO YOU'D BETTER HURRY UP AND DO IT. IF YOU DON'T SEND SOMEONE IN WHO WILL." MEDICATIONS GIVEN PER pt REQUEST. ASSESSMENT DONE. pt REPORTED A BOWEL MOVEMENT. BOWEL TONES ACTIVE. DISCUSSED PAIN MANAGEMENT. FRIEND AT BEDSIDE. CALL LIGHT WITHIN REACH.
--- NOTE | 2020-10-20 21:04 | NUR ---
CALLED MD. UPDATED ON BOWEL MOVEMENT AND REQUEST TO LEAVE AND HAVE PAIN MEDICATION. NEW ORDER ENTERED.
--- NOTE | 2020-10-20 21:22 | NUR ---
IN TO GIVE MEDICATIONS (SEE MAR). pt REPORTED 8/10 PAIN. REPORTED ITCHING IN IV. FLUSHED, BRISK BLOOD RETURN NOTED. REDRESSED FOR pt COMFORT. CALL LIGHT WITHIN REACH. VISITOR REMAINS AT BEDSIDE.
--- NOTE | 2020-10-20 21:55 | NUR ---
IN TO ASST PT TO BSC, PT NOW BACK TO BED, C\O ANXITY AND TEARFUL, RN INFORMED, NO FURTHER NEEDS AT THIS TIME
--- NOTE | 2020-10-20 22:19 | NUR ---
IN ROOM TO ADMINISTER ANCEF FOR PRIMARY RN MILTON. PT ASKED ABOUT A NECKLACE SHE SAID WAS ON HER TABLE. ADVISED HER I WOULD LOOK FOR IT AFTER ADMINISTERING THE ABX. TRIED LOOKING AROUND THE ROOM WITH A SMALL FLASHLIGHT PT HAD FALLEN ASLEEP BUT DID NOT FIND ANYTHING. NOTIFIED PRIMARY RN WELL.
--- NOTE | 2020-10-20 23:37 | NUR ---
PT CALLING, STATES SHE COULD NOT FEEL RIGHT SCD CUFF IN FLATING, ADJ AND PT SATISFIED, PT THEN ASKING IF IT IS TIME FOR HER NEXT PAIN RELIVEFCHARBEL, RN INFORMED, NO FURTHER NEEDS AT THIS TIME
--- NOTE | 2020-10-20 23:57 | NUR ---
CALL LIGHT ON. pt REQUESTED HER BED BE MOVED FOR BETTER TV VIEWING. DISCUSSED PAIN MANAGEMENT. pt REQUESTED THIS RN CALL IN HOME MEDICAL TO SEE IF HER BED SIDE COMMODE HAS BEEN DELIVERED TO HER HOUSE. REMINDED pt OF THE TIME. pt ASKED ABOUT DISCHARGE AND IF SHE WILL BE GOING HOME WITH PRESCRIPTIONS. DISCUSSED THAT DISCHARGE INSTRUCTIONS HAVE NOT BEEN ENTERED AND SHE WILL NEED TO WAIT UNTIL THE MD HAS MADE THE DECISION TO DISCHARGE. pt AGREEABLE. CALL LIGHT WITHIN REACH.
--- NOTE | 2020-10-21 00:34 | NUR ---
PT CALLED, ASKED TO HAVE SCDS OFF, C/O ITCHINESS ON LEGS, RN INFORMED
--- NOTE | 2020-10-21 01:50 | NUR ---
PT CALLED FOR ASST WITH GETTING UP TO THE BSC, AND TOOK VITALS PER 2AM BP MEDS FOR RN, NO FURTHER NEEDS AT THIS TIME, RN TO BE IN RM SHORTLY
--- NOTE | 2020-10-21 02:03 | NUR ---
IN TO GIVE MEDICATION. pt MUCH MORE COMPLIANT WITH MEDICATION ADMINISTRATION AND ASSESSMENT. NO CHANGES ON ASSESSMENT. pt PASSING GAS. pt REPORTED USING MARIJUANA FOR PAIN MANAGEMENT. NO FURTHER REQUESTS AT THIS TIME. CALL LIGHT WITHIN REACH.
--- NOTE | 2020-10-21 02:36 | NUR ---
CALL LIGHT ON. pt REPORTED "I JUST FEEL AWFUL, I THINK I MIGHT PUKE." PROVIDED EMESIS BAG, COOL CLOTH, PRN MEDS. pt RESTING IN BED MOANING. NO FURTHER REQUESTS AT THIS TIME. CALL LIGHT WITHIN REACH.
--- NOTE | 2020-10-21 03:27 | NUR ---
ROUNDED ON pt. RESTING WITH EYES CLOSED, RESPIRATIONS REGULAR AND UNLABORED. DID NOT WAKE TO VOICE. CALL LIGHT WITHIN REAHC.
--- NOTE | 2020-10-21 04:10 | NUR ---
PT CALLED, HAD A NIGHTMARE, RN ALSO IN ROOM, COMFORTING WORDS FOR PT, NO FURTHER NEEDS AT THIS TIME
--- NOTE | 2020-10-21 04:11 | NUR ---
pt REPORTED A "NIGHTMARE" STAYED WITH pt UNTIL SHE FELT SHE WAS OKAY. NO FURTHER REQUESTS AT THIS TIME. CALL LIGHT WITHIN REACH.
--- NOTE | 2020-10-21 04:18 | NUR ---
IN TO PROVIDE PT WARM BLANKET PER REQUEST, NO FURTHER NEEDS AT THIS TIME
--- NOTE | 2020-10-21 04:24 | NUR ---
CALL LIGHT ON. pt REQUESTED PAIN MEDICATION. GIVEN (SEE MAR). NO FURTHER REQUESTS AT THIS TIME.
--- NOTE | 2020-10-21 06:20 | NUR ---
IN TO DO VITALS AND I&O. pt RESTING IN BED WITH EYES CLOSED, RESPIRATIONS REGULAR AND UNLABORED. WOKE TO NOISE IN ROOM. O2 SAT 85% TO 89% ON ROOM AIR. pt AGREEABLE TO USING O2 1L O2 SAT MAINTAINED 90% OR GREATER. REPORTED PAIN IS "A LITTLE BETTER" MEDICATION INFUSING PER ORDERS. CALL LIGHT WITHIN REACH. REPORTED NAUSEA IS "BETTER"
--- NOTE | 2020-10-21 06:56 | NUR ---
pt BACK FROM XRAY. IVF INFUSING. PROVIDED SODA. NO FURTHER REQUESTS. CALL LIGHT WITHIN REACH.
--- NOTE | 2020-10-21 07:50 | NUR ---
PT IN BED THIS MORNING REQUESTING BREAKFAST. REFUSING TO GET OUT OF BED AND INTO CHAIR FOR BREAKFAST. BP ELEVATED 169/73, IV METOPROLOL TO BE GIVEN W/ MORNING MEDICATIONS. PT UPSET AND CRYING ABOUT HER DOG SHE LOST IN AUG 2020, RN PROVIDED COMFORT AND THERAPEUTIC COMMUNICATION. BROUGHT BREAKFAST TRAY. NO OTHER NEEDS AT THIS TIME.
--- NOTE | 2020-10-21 09:32 | NUR ---
pt up and ambulated to a from bathroom. C/O right hip discomfort, rates pain 7/10. Pt also felt nauseous after eating yogurt, states she does not normally like yogurt, vomited 200 mls. IV zofran and toradol given along with the rest of pt morning medications. Pt refused to get up to chair this morning, complied after encouragement from RN and SPEECH AND LANGUAGE ASSISTANT. Rebeka from Case Management in to see pt as well as pt had some concerns she wished to share not related to her care here.
--- NOTE | 2020-10-21 10:25 | NUR ---
Lengthy visit with Shelby. She is upset and crying as her small dog a few months ago. She is tearful as she cont. to have belly pain and she is not happy with the food. She feels her sbo was caused by eating spagetti. She ate cream of wheat and is now nauseated.
--- NOTE | 2020-10-21 10:48 | NUR ---
PT C/O ABDOMINAL CRAMPING 07/09 THAT LASTED ABOUT 5 MIN. PT PROVIDED WARM PACK TO ABDOMEN AND NOW STATES CRAMPING HAS SUBSIDED. PT DENIES NAUSEA. ENCOURAGED TO PROGRESS SLOWLY WITH FOOD TOLERATED AND TO AVOID OVEREATING. KUB X-RAY SHOWS IMPROVEMENT FROM YESTERDAY. PT REPORTS SHE IS STILL ABLE TO PASS GAS AND HAD A MEDIUM SOFT BM LAST NIGHT. BOWEL TONES ARE ACTIVE IN ALL QUADRANTS. WILL CONTINUE TO MONITOR.
--- NOTE | 2020-10-21 12:25 | NUR ---
pt back to bed prior to lunch. sitting up eating. encouraged to eat small portions and go slow to avoid aggravating stomach. call light in reach. no other needs at this time.
--- NOTE | 2020-10-21 14:00 | NUR ---
IN TO GIVE ANCEF AND METOPROLOL. ALSO PT WAS C/O 04/08 RT SHOULDER AND HIP PAIN FROM AMBULATING IN ROOM TO AND FROM CHAIR AND BATHROOM. PERCOCET GIVEN. PT DENIES NAUSEA OR ABDOMINAL PAIN AT THIS TIME. NO ACUTE CHANGES. VSS. BP SLIGHTLY ELEVATED, IV METOPROLOL GIVEN. PT DENIES SHE HAS HYPERTENSION, STATES SHE THINKS IT RELATED TO HER ANXIETY AND HIP DISCOMFORT. PT IS TOLERATING FULL LIQUID DIET WELL, REMINDED PT ABOUT PORTION CONTROL. VOIDING QUANTITY SUFFICIENT. UP AND SHOWERED AFTER LUNCH. SAYS SHE WOULD LIKE TO GO HOME. DR. CHANEL WILL LIKELY BE IN TO SEE PT THIS AFTERNOON.
[2020-10-21] MEDS ORDERED: BACTRIM DS TAB1 EACH PO (14:58)
--- NOTE | 2020-10-21 15:30 | NUR ---
DR. CHANEL HAS BEEN IN TO SEE PT AND NEW ORDERS FOR DISCHARGE. [place] DRAIN TILE PRESS OPERATOR IN TO HELP PT DRESS AND REMOVED IV FROM LEFT WRIST. NO ACUTE CHANGES IN HEAD TO TOE ASSESSMENT. LUNG SOUNDS REMAIN DIMINISHED, PT SATING 95% ON RA. PT'S MOOD HAS IMPROVED NOW THAT SHE IS BEING DC'D. DENIES NAUSEA OR PAIN AT THIS TIME. DC INSTRUCTIONS THOROUGHLY REVIEWED AND REMINDED TO PAY ATTENTION TO PORTION CONTROL AND CONTINUE W/ FULL LIQUID DIET. PT HAS NO COMPLAINTS. FRIEND TO COME LACQUER SIZER PT AND TAKE HOME. PT IS TO CALL DR. CHANEL'S OFFICE ON SATURDAY FOR F/U. PT HAS NO FURTHER QUESTIONS OR CONCERNS.
== END 2020-10-21 16:50 | disposition home or self-care (01) | DRG 389 ==
LOC: ED 07:36 → MS 13:23
PROVIDERS: ADMIT Surgery; ATTEND Surgery
DX: K56.600 Partial intestinal obstruction, unspecified as to cause (principal); N39.0 Urinary tract infection, site not specified; Z68.42 Body mass index [BMI] 45.0-49.9, adult; Z20.822 Contact with and (suspected) exposure to COVID-19; B96.20 Unspecified Escherichia coli [E. coli] as the cause of diseases classified elsewhere; G89.4 Chronic pain syndrome; K57.90 Diverticulosis of intestine, part unspecified, without perforation or abscess without bleeding; F32.9 Major depressive disorder, single episode, unspecified; I10 Essential (primary) hypertension; J44.9 Chronic obstructive pulmonary disease, unspecified; M25.552 Pain in left hip; F17.200 Nicotine dependence, unspecified, uncomplicated; E66.01 Morbid (severe) obesity due to excess calories; L30.9 Dermatitis, unspecified; Z79.899 Other long term (current) drug therapy; Z79.1 Long term (current) use of non-steroidal anti-inflammatories (NSAID); Z79.891 Long term (current) use of opiate analgesic; Z88.1 Allergy status to other antibiotic agents; Z88.8 Allergy status to other drugs, medicaments and biological substances; Z88.5 Allergy status to narcotic agent; Z91.19 Patient's noncompliance with other medical treatment and regimen
CPT/HCPCS: 36415; 71045; 74018; 74177; 80053; 81001; 83690; 85025; 87077; 87088; 87186; 99285-25; C9803; G0378; J0131; J0690; J1650; J1885; J2060; J2405; J7030; J7121; Q9967; U0003

== ENCOUNTER 2020-10-29 22:21 | Inpatient (IN) | payer OTHER ==
[~2020-10-29] VITALS: Ht 162.6 cm; Wt 124.1 kg
[~2020-10-29 22:21] MED LIST changes: +STOOL SOFTENER1 EACH PO
--- NOTE | 2020-10-30 02:42 | NUR ---
PT ARRIVED TO UNIT VIA STRETCHER AWAKE AND ALERT. PT WAS ALERT AND ORIENTED AND BROUGHT DOWN BY RN AND STUDENT RN AT 0110. BEFORE PT GOT INTO BED PT WAS HELPED ONTO BSC TO VOID. PT THEN ASSISTED UP TO BED WITH HELP. IV ABX FROM ED WERE RUNNING DURING THIS TIME AND PT HAS BEEN ON 2L O2 NC. PT ASSESSED. AFTER ASSESSMENT PT STATED SHE HAD 9/10 PAIN ON HER SHOULDER, HIP, AND ABDOMEN. PT GIVEN PRN TYLENOL FOR PAIN. PT IV ABX COMPLETED DURING THIS TIME AND PT WAS SALINE LOCKED. PT REQUESTED WATER AND WAS ABLE TO DRINK IT WITHOUT DIFFICULTY. PT REPORTS NO FURTHER NEEDS WHEN ASKED AND WENT TO SLEEP AFTER THE ADMISSION PROCESS. CALL LIGHT ON BED WITHIN REACH, BED IN LOWEST POSITION, BELONGINGS AT BEDSIDE TABLE, IVF INFUSING ORDERED, PT ON 2L O2 NC. WILL CONTINUE PLAN OF CARE.
--- NOTE | 2020-10-30 04:48 | NUR ---
PATIENT CALLED FOR ASSISTANCE TO THE BATHROOM. PATIENT UP TO BSC WITH 1PA. PATIENT VOIDED, NO BM. PATIENT REPORTS FEELING "AWFUL" AND GROANS LOUDLY WITH MOVEMENTS. PATIENT RATES PAIN IN ABD 9/10 AND DENIES NAUSEA BUT HOLDS EMESIS BAG TO HER FACE. PATIENT BACK IN BED. WHEN RN RETURNS WITH MEDICATIONS PATIENT APPEARS TO BE SLEEPING BUT WAKES EASILY. PRN OXY AND ZOFRAN PROVIDED.
--- NOTE | 2020-10-30 06:01 | NUR ---
RESPONDED TO PT CALL LIGHT. PT STATED THAT SHE WAS FEELING SICK AND NAUSEAUS. PT VOMITTED A SMALL AMOUNT OF CLEAR LIQUID SHORTLY AFTER. PT GIVEN PRN PHENERGEN FOR N&V. PT THEN STARTED ON ORDERED IV ABX. PT REPORTS NO FURTHER NEEDS WHEN ASKED AND RETURNED BACK TO SLEEP. WILL CONTINUE PLAN OF CARE. PT ON 2L O2, IVF INFUSING, IV ABX INFUSING, CALL LIGHT WITHIN REACH, BED IN LOWEST POSITION.
--- NOTE | 2020-10-30 07:06 | NUR ---
PATIENT CALLED FOR ASSISTANCE TO THE BSC. PATIENT UP TO VOID. PASSING GAS. NO BM. URINE IS CONCENTRATED. PATIENT HAD 100 MLS YELLOW EMESIS. RETURNED TO BED. VS DONE. IV FLUIDS INFUSING, SITE WNL.
--- NOTE | 2020-10-30 07:30 | NUR ---
report revieved. patient is laying on left side, is moaning occ. SMALL EMESIS, C/O GENERALIZED ABD PAIN AND ECHEVARRIA.
--- NOTE | 2020-10-30 08:00 | NUR ---
ASSESSMENT DONE. CONTINUES WITH NAUSEA AND ABD PAIN. BOWEL SOUNDS ACTIVE. TELE# 9 ON. MONITOR SHOWS SR-ST. VANCOMYCIN INFUSING AT 275 ML/HR. MOANIS AT TIMES. STATES "I DON'T FEEL GOOD AT ALL, I DON'T WANT TO BE HERE". TALKED WITH PATIENT ABOUT POC FOR THE DAY. O2 AT [address]
--- NOTE | 2020-10-30 08:06 | NUR ---
DILAUDID 0.5 MG IV GIVEN FOR ABD PAIN AND ECHEVARRIA. RATES PAIN 9/10.
--- NOTE | 2020-10-30 09:12 | NUR ---
NAUSEATED WITH SMALL EMESIS. O2 TRIAL TO RA.
--- NOTE | 2020-10-30 09:14 | NUR ---
O2 SATS VARY FROM 86-95, O2 REAPPLIED AT 2 L NC.
--- NOTE | 2020-10-30 11:30 | NUR ---
DR. HAIRSTON HERE TO SEE PATIENT. ORDERS RECIEVED.
--- NOTE | 2020-10-30 15:05 | NUR ---
UP TO COMMODE, WITH ASSIST TO VOID LARGE AMOUNT OF CLEAR YELLOW URINE. ASSESSMENT DONE. LUNGS WITH EXP WHEEZES, DENIES SHORTNESS OF BREATH. O2 REMAINS AT 2 LITERS PER NC. MODIFIED SPONGE BATH GIVEN. DESENEX POWER APPLIED UNDER PANNUS,GROIN,UNDER BREAST. STATES SHE FEEL A LITTLE BETTER THIS AFTERNOON. DENIES NEED FOR PAIN MEDICATION AT THIS TIME.
--- NOTE | 2020-10-30 17:00 | NUR ---
OXYCODONE 10 MG PO GIVEN FOR ABD DISCOMFORT. RATES PAIN 9/10.
--- NOTE | 2020-10-30 20:00 | NUR ---
THIS RN IN TO ASSESS PT. PT SWAPNA IN BED SLEEPING. PT ON 2L O2 NC, IVF INFUSING. PT GIVEN ORDERED MEDICATIONS AND STARTED ON IV ABX. PT REPORTS NO SOB WHEN ASKED AND STATES THAT HER PAIN HAS IMPROVED SINCE HER LAS PRN PAIN MEDICATION. PT IS ALERT AND ORIENTED, ANSWERING QUESTIONS APPROPRIATELY AND ASKING QUESTIONS. PT REPORTS NO FURTHER NEEDS WHEN ASKED AND RETURNED BACK TO SLEEP. IVF AND IV ABX INFUSING, 2L O2 NC ON PT. CALL LIGHT WITHIN REACH, BED IN LOWEST POSITION, WILL CONTINUE PLAN OF CARE.
--- NOTE | 2020-10-30 21:41 | NUR ---
THIS RN IN TO ADJUST SPO2 MONITOR ON PT. PT WOKE UP AND INFORMED ME THAT SHE WAS HAVING ABDOMINAL PAIN THAT WAS AT A 7/10. PO PAIN MEDICATION ADMINISTERED (SEE NOV). IV ABX COMPLETE WELL AND PT WAS SALINE LOCKED. PT REPORTS NO FURTHER NEEDS WHEN ASKED AND STATES SHES GOING BACK TO SLEEP. CALL LIGHT IN REACH, BED IN LOWEST POSITION, WILL CONTINUE PLAN OF CARE.
--- NOTE | 2020-10-30 22:30 | NUR ---
RESPONDED TO PT CALL LIGHT. PT STATED SHE HAD TO GO TO THE BATHROOM. PT ABLE TO GET UP WITH MINIMAL ASSISTANCE. PT ASSISTED WITH CLEANING AND PT ABLE TO GET INTO BED WITH MINIMAL ASSISTANCE WELL. PT DENIES DIZZYNESS OR SOB DURING ACTIVITY, HR WAS IN THE 120'S DURING THIS TIME. PT ABLE TO VOID AND HAVE A BM. PT REPORTS NO FURTHER NEEDS AND STATES THE PRN PAIN MEDICATION ADMINISTERED EARLIER WHERE HELPING. IVF INFUSING, 2L O2 NC ON PT. CALL LIGHT WITHIN REACH, WILL CONTINUE PLAN OF CARE.
--- NOTE | 2020-10-30 23:49 | NUR ---
THIS RN IN TO PT'S ROOM. PT STATED SHE WANTED TO SIT UP MORE ON THE BED. PT REPOSITIONED UP ON THE BED AND SAT UP INTO SEMI-FOWLERS WITH THE HELP OF HERMINIO CHACON. PT REPORTS NO FURTHER NEEDS WHEN ASKED. PT NOW LAYING IN BED SEMI-FOWLERS WATCHING TV. CALL LIGHT ON PT WITHIN REACH, BED IN LOWEST POSITION, WILL CONTINUE PLAN OF CARE.
--- NOTE | 2020-10-31 04:03 | NUR ---
PT LAYING IN BED SLEEPING. RESPIRATIONS EVEN AND UNLABORED. PT IN NO APPARENT DISTRESS AND WAS LEFT UNDISTURBED, WILL CONTINUE PLAN OF CARE. PT ON 2L O2, SPO2 96%, CALL LIGHT IN REACH, BED IN LOWEST POSITION.
--- NOTE | 2020-10-31 05:00 | NUR ---
RESPONDED TO PT CALL LIGHT. PT NEEDED TO VOID. PT ABLE TO GET UP OUT OF BED WITH ASSISTANCE AND GET TO BSC. PT ABLE TO VOID AND GET BACK ONTO BED WITH MINIMAL ASSISTANCE. PT ALERT AND ORIENTED AT THIS TIME BUT STILL UNSTEADY ON HIS FEET. PT STATES SHE FELT WEAK DURING THE PROCESS, HR WAS IN THE 120'S DURING ACTIVITY. PT ASSESSED, PT REPORTS NO SOB, AND STATES SHE FEELS COMFORTABLE AT THIS TIME. PT STILL HAS IVF INFUSING ORDERED AND IS ON 2L O2 NC. PT REPORTS NO FURTHER NEEDS AND RETURNED BACK TO SLEEP. CALL LIGHT WITHIN REACH, BED IN LOWEST POSITION, WILL CONTINUE PLAN OF CARE.
--- NOTE | 2020-10-31 05:47 | CONS ---
[facility] [address], [place] [address] Signed DATE OF CONSULTATION: 10/30/2020 CHIEF COMPLAINT: Epigastric abdominal pain. HISTORY OF PRESENT ILLNESS: Shelby is a 60-year-old obese, significantly disabled patient, who I was asked to see in consultation. She has had multiple previous abdominal surgeries including an open appendectomy as well as a hysterectomy. Apparently, I met Shelby over five years ago with what sounds like a partial small bowel obstruction that we treated conservatively. She said she has been doing great up until about two weeks ago. She was here in the hospital, followed by Dr. Bhakta. Her clinical course improved along with her abdominal x-rays and she was discharged to home. Two days ago, she started having nausea, vomiting, and diarrhea again. She came back into the emergency room last night with an elevated white blood cell count, was admitted to our Internal Medicine service. Once again, the CT scan shows a fluid-filled stomach, duodenum, and some of the jejunum. There was no obvious transition point. However, the distal jejunum and ileum is decompressed and more or less the colon is unremarkable as well other than some diverticula. There is always some concern about cellulitis in her rather thick pannus. Consequently, she has been on vancomycin and Rocephin. The Flagyl was stopped. I have been asked to see her as a general surgeon on-call. As always, Shelby declines NG tube decompression. She always tells me that the emesis smells like feces. PAST MEDICAL HISTORY: Chronic left hip pain, depression, hypertension, diverticulosis, COPD, asthma, bilateral shoulder pain, obstructive sleep apnea, and obesity. PAST SURGICAL HISTORY: Includes hysterectomy, open cholecystectomy through the right subcostal incision and open appendectomy through the right lower quadrant incision, C-sections x2, multiple right hip surgeries, now with a right total hip replacement, knee surgery, and renal stent. SOCIAL HISTORY: She smokes cigarettes and marijuana. She does not drink. She is DNR. Dr. Nakul Angel is her physician over in [place], [place]. She prefers the [facility] here in [place]. She lives alone. Her dog last fall. She drives and is on disability. She has two sons, but they do not associated with her. FAMILY HISTORY: Apparently, there is cancer, hypertension, and multiple sclerosis in the family. REVIEW OF SYSTEMS: Electronically Signed By: SOFIA HAIRSTON MD 10/31/20 0547 PATIENT NAME: SHELBY BONILLA CONSULTATION DATE OF : 58 REPORT #: [id number] PHYSICIAN: SOFIA HAIRSTON MD PCP: NAKUL ANGEL MD REPORT IS CONFIDENTIAL AND NOT TO BE RELEASED WITHOUT AUTHORIZATION [facility] [address], [place] [address] Signed She had 10 systems reviewed and really nothing new since I apparently took care of her five years ago. ALLERGIES: Atorvastatin, morphine, and levothyroxine gave her a rash in her arm during infusion. MEDICATIONS: 1. Albuterol. 2. Flexeril. 3. Diclofenac. 4. Nystatin. 5. Percocet. PHYSICAL EXAMINATION: VITAL SIGNS: Her blood pressure is 136/65, heart rate 97, respiratory rate is 20, temperature is 98.5, and she is 97% on room air. She is 122 kg and 5 feet 4 inches. GENERAL: Shelby is a 60-year-old female, who appears much older than her stated age. She is always disheveled. She is clearly been a long time smoker. LUNGS: Generally clear to auscultation bilaterally. HEART: Distant. ABDOMEN: Quite obese. She has previous surgical scars, but they all feel intact. She has a very large dependent pannus with fungal infection underneath it, it is quite malodorous. However, she has chronic scarring in abdominal wall; I do not see any obvious edema or evidence of cellulitis at this time. She seems to have some fullness and tenderness in the upper abdomen. No peritoneal signs or symptoms. LABORATORY DATA: Her white blood count 22.1, hemoglobin is 13, and neutrophils are 84. Her BUN is 12, creatinine 0.6, and glucose 142. Lactic acid is 1.3. COVID was negative. Urine specific gravity was a little up at 1.028. She has blood cultures pending. Her stool studies including culture and C diff toxin are pending. RADIOGRAPHIC STUDIES: Chest x-ray showed mild cardiomegaly. CT scan of the abdomen and pelvis was reviewed and again the stomach and jejunum have quite a bit of fluid around 3.5 cm. Although, there was no obvious transition point. She again has straining in her pannus, I think it is chronic. ASSESSMENT AND PLAN: But Shelby is a 60-year-old female who presents with what may be gastroenteritis versus a partial small bowel obstruction somewhere in her mid jejunum. As always, she declines an NG tube. She is currently n.p.o. and on IV fluids. I think it is bagley for Shelby given her overall health status, she wait and see if this does not settle down. Laparotomy even in the upper abdomen for Shelby be quite an undertaking. Nevertheless, Electronically Signed By: SOFIA HAIRSTON MD 10/31/20 0547 PATIENT NAME: SHELBY BONILLA CONSULTATION DATE OF : 58 REPORT #: [id number] PHYSICIAN: SOFIA HAIRSTON MD PCP: NAKUL ANGEL MD REPORT IS CONFIDENTIAL AND NOT TO BE RELEASED WITHOUT AUTHORIZATION [facility] [address], [place] [address] Signed if this persists, she would need that for exploration and evaluation of small bowel; however, she seems to have resolved this at least three prior times as stated above. She is in agreement, would like to avoid surgery if she can. She also I also reviewed the DNR status with her and she told me she is in agreement with that as well. Consequently, we will go ahead and treat her conservatively at this time. She has expressed understanding and agrees with the above plan. This was also discussed with her RN, [place] and. Dr. Hua. Sofia Hairston MD ALB/MODL /[id number] cc: MD Nakul Brown MD Copies: SOFIA HAIRSTON MD, JAMES R MD ~ Electronically Signed By: SOFIA HAIRSTON MD 10/31/20 0547 PATIENT NAME: SHELBY BONILLA CONSULTATION DATE OF : 58 REPORT #: [id number] PHYSICIAN: SOFIA HAIRSTON MD PCP: NAKUL ANGEL MD REPORT IS CONFIDENTIAL AND NOT TO BE RELEASED WITHOUT AUTHORIZATION
--- NOTE | 2020-10-31 06:07 | NUR ---
THIS RN IN TO ASSIST PT REPOSITIONING IN BED. PT REPOSITIONED FROM HER LEFT SIDE TO HER RIGHT SIDE ON THE BED WITH THE HELP OF RN ROLF. PT REPORTS NO FURTHER NEEDS WHEN ASKED. IVF INFUSING, NC IN PLACE AT 2L O2, CALL LIGHT WITHIN REACH, BED IN LOWEST POSITION. WILL CONTINUE PLAN OF CARE.
--- NOTE | 2020-10-31 06:26 | NUR ---
RESPONDED TO PT CALL LIGHT. PT STATED THAT SHE WANTED TO GET UP. PT OFFERED TO BE HELPED ONTO BEDSIDE CHAIR, PT AGREED. PT HELPED ONTO BEDSIDE CHAIR BY HERMINIO BANSAL. PT STILL UNSTEADY ON FEET BUT ABLE TO GET ON WITH ASSISTANCE. PT REPORTS NO FURTHER NEEDS AND RETURNED TO SLEEP ON CHAIR. CALL LIGHT WITHIN REACH, BED IN LOWEST POSITION, IVF INFUSING, PT ON 2L O2 NC. WILL CONTINUE PLAN OF CARE.
--- NOTE | 2020-10-31 08:00 | NUR ---
ASSESSMENT DONE. PATIENT IN BED AFTER USING COMMODE. CHUCHOG. TALKED WITH PATIENT ABOUT POC FOR DAY.
--- NOTE | 2020-10-31 08:20 | NUR ---
DR. PATHAK HERE TO SEE PATIENT. IVF PATENT, ROCEPHIN INFUSED. MAG INFUSING AT THIS TIME. MAG LEVEL THIS AM 1.5.
--- NOTE | 2020-10-31 09:10 | NUR ---
TO XRAY VIA W/C FOR SMALL BOWEL FOLLOW THROUGH.
--- NOTE | 2020-10-31 09:30 | NUR ---
v/s and I&Os done and recorded. pt. called for assistance to the commode. Pt. was in chair. Got back into bed after using the commode. Bed linens changed. no other needs at this time. call light within reach
--- NOTE | 2020-10-31 09:30 | NUR ---
PATIENT IN XRAY. WILL CHECK BACK LATER.
--- NOTE | 2020-10-31 09:30 | NUR ---
PHENERGAN 12.5 MG IV GIVEN, CALL RECIEVED FRON XRAY REPORTING PATIENT NAUSEATED. THIS GIVEN. PATIENT REMAINS IN XRAY DEPARTMENT AT THIS TIME.
--- NOTE | 2020-10-31 10:20 | NUR ---
return to ccu from xray. transfer to chair. VERY DROWSY.
--- NOTE | 2020-10-31 11:17 | NUR ---
SLEEPING IN CHAIR NO DISTRESS NOTED. O2 REMAINS AT 2 L NC, TELE # [address] AWAITING FUTHER XRAY R/T SMALL BOWEL FOLLOW THROUGH.
--- NOTE | 2020-10-31 12:40 | NUR ---
RETURN TO ROOM 126 FROM XRAY. TOLERATED XRAY FAIR. HAS EXTREME PAIN IN LEFT HIP WITH MOVEMENT. BACK TO BED WITH ASSIST. C/O NAUSEA. ZOFRAN 4 MG IV GIVEN. IVF INFUSING. O2 2 L NC ON.
--- NOTE | 2020-10-31 12:50 | NUR ---
C/O NAUSEA, ZOFRAN 4 MG IV GIVEN. PATIENT SAID THE REASON SHE IS NAUSEATED IS BECAUSE SHE IS HAVING SEVERE LEFT LEG PAIN. ALSO C/O ABD PAIN.
--- NOTE | 2020-10-31 13:26 | NUR ---
HERMINIO MELARA INFORMED ME THAT PT IS TO BE TAKEN TO IMAGING ANY MOMENT. WILL NOT DISTURB AND CHECK BACK AGAIN.
--- NOTE | 2020-10-31 15:03 | NUR ---
SLEEPING ON RIGHT SIDE.
--- NOTE | 2020-10-31 15:35 | NUR ---
C/O LEFT LEG/HIP PAIN. DR. PATHAK AWARE, ORDERS RECIEVED FOR FLEXERIL .
--- NOTE | 2020-10-31 15:55 | NUR ---
OOB TO COMMODE TO EXPELL URINE WITH LIQUID-SOFT BROWN STOOL. THEN TO SHOWER.
--- NOTE | 2020-10-31 16:15 | NUR ---
TOLERATED SHOWER WELL, TRANSFERRED TO CHAIR. David MARQUEZ RN HELPING PATIENT WITH HAIR. UNABLE TO SEND STOOL TO LAB FOR C-DIFF IS MIXED WITH URINE. PATIENT TALKING FEW SIPS OF LIQUIDS.
--- NOTE | 2020-10-31 19:19 | NUR ---
no changes, report to next shift.
--- NOTE | 2020-10-31 20:10 | NUR ---
SHIFT REPORT RECEIVED FROM HERMINIO MELARA. PT CALLED TO REQUEST MACKENZIE FUENTES. UP TO BSC WITH SBA, VOIDED 400ML AND RETURNED TO BED. PT REPORTS NAUSEA AND 8/10 ABDOMINAL PAIN. PRN ZOFRAN AND OXYCODONE ADMINISTERED. HR REGULAR, TELE #9. LUNGS CLEAR, DIM, 2L VIA NC IN PLACE. BOWEL TONES SOMEWHAT HYPOACTIVE. SKIN GROSSLY INTACT, DESENEX POWDER APPLIED TO REDNESS UNDER PANNUS. IV SITES INTACT AND PATENT. PT DENIES FURTHER REQUESTS AT THIS TIME, CALL LIGHT WITHIN REACH.
--- NOTE | 2020-10-31 22:22 | NUR ---
PT CALLED TO USE BATHROOM, UP TO BSC WITH SBA. PT HAD 800ML MIXED URINE AND SEMI-LIQUID STOOL. UNABLE TO OBTAIN STOOL SAMPLE-MISSED HAT. PERICARE PROVIDED AND PT RETURNED TO BED. REFRESHED PT'S BEVERAGES. NO FURTHER REQUESTS AT THIS TIME, CALL LIGHT WITHIN REACH.
--- NOTE | 2020-11-01 00:43 | NUR ---
PT SLEEPING SOUNDLY AT THIS TIME, NO APPARENT DISTRESS. RESPIRATIONS EVEN AND UNLABORED, 2L O2 VIA NC IN PLACE. HR: 97, SPO2:94% PER TELE #9.
--- NOTE | 2020-11-01 03:33 | NUR ---
PT CONTINUES TO SLEEP, NO APPARENT DISTRESS. RESPIRATIONS EVEN AND UNLABORED, 2L O2 VIA NC REMAINS IN PLACE. HR:88, SPO2:96% PER TELE #9.
--- NOTE | 2020-11-01 05:02 | NUR ---
PT CALLED TO USE BATHROOM, UP TO BSC WITH SBA. PT VOIDED AND RETURNED TO BED. VITAL SIGNS OBTAINED. ASSESSMENT COMPLETED AND UNCHANGED. WARM BLANKET PROVIDED, PT DENIES FURTHER REQUESTS AT THIS TIME. CALL LIGHT WITHIN REACH.
--- NOTE | 2020-11-01 07:14 | NUR ---
PT CALLED TO REPORT 10/10 HEADACHE PAIN, PRN TYLENOL GIVEN AT THIS TIME.
--- NOTE | 2020-11-01 07:30 | NUR ---
REPORT RECIEVED. C/O HEADACHE AND ABD DISCOMFORT. SOFT DIET ORDERED.
--- NOTE | 2020-11-01 09:01 | NUR ---
Pt. had accident in bed. LAUNDRY OPERATOR WASH ROOM assisted pt. to commode, pt had a large liquid bowel movement. Bed linens changed, gown changed. Pt. cleaned up and got back in bed. Breakfast given. v/s and I&Os done and recorded. no other needs at this time. call light with in reach
--- NOTE | 2020-11-01 09:20 | NUR ---
ASSESSMENT DONE. ENCOURAGED TO INCREASE ACTIVITY. REFUSING CHAIR AT THIS TIME.
--- NOTE | 2020-11-01 10:44 | NUR ---
PATIENT FINISHES WITH ECHO AT THIS TIME. PT WONDERING WHERE HER INFECTION IS, HOW MANY MORE ANTIBIOTICS SHE WILL BE GIVEN, AND WHAT HER RESULTS OF HER CT ABDOMEN WERE. RESULTS FROM CT ON 10/29/20 DISCUSSED WITH PATIENT SHE FELT THAT HER LEFT KIDNEY WAS THE CAUSE OF HER INFECTION. DISCUSSED WITH PATIENT THE FINDINGS AND READ REPORT TO HER. PT ALSO NOTES THE REDNESS TO HER SKIN AND EDUCATED ON THE ANTIBIOTICS SHE IS RECEIVING FOR HER INFECTION. PT UP TO COMMODE AND VOIDS 675 ML. PT REMAINS IN SINUS RHYTHM ON TELE #9, WITH SP02 OF 99% ON 2 L NC.
--- NOTE | 2020-11-01 10:45 | NUR ---
pt. used call light wanting to get the phone so she could make some calls. no other needs at this time. call light with in reach.
--- NOTE | 2020-11-01 12:00 | NUR ---
UP TO COMMODE TO VOID THEN TO CHAIR FOR LUNCH. ENC AMBULATION.
--- NOTE | 2020-11-01 12:43 | NUR ---
Pt. was sitting in chair eating lunch. Finished eating stated she her back hurt and she wanted to go back to bed and lay down. Pt. layed in bed on her left side and went to sleep. no other needs at this time. call light with in reach
--- NOTE | 2020-11-01 13:51 | NUR ---
RESTING, IVF PATENT. NO CHANGES IN ASSESSMENT.
--- NOTE | 2020-11-01 14:18 | NUR ---
PT ASLEEP, WILL CHECK BACK
--- NOTE | 2020-11-01 14:55 | NUR ---
Pt. used a call light she had to use the commode. MANAGER OF PROGRAM assisted pt. to commode cleaned pt up then pt. got back in bed. no other needs at this time. call light within reach
--- NOTE | 2020-11-01 16:22 | NUR ---
OXYCODONE 10 MG IV GIVEN OF C/O BACK PAIN, HEADACHE, LEG PAIN. CRYING. PATIENT IS VERY EMOTIONAL.
--- NOTE | 2020-11-01 17:10 | NUR ---
OOB TO BR TO VOID AND HAVE SMALL SEMI-SOFT STOOL THEN TO CHAIR FOR DINNER. TOOK ALFREDO THE INSISTED ON GOING BACK TO BED, SAID HER BACK HURT. I TRIED TO PERSUADE PATIENT TO STAY IN CHAIR W/O SUCCESS. PATIENT WAS IN CHAIR APPROX 5 MIN BEFORE GOING BACK TO BED. IS USING WALKER FOR AMBULTION TO BR AND CHAIR. REFUSED TO WALK IN TURNER TODAY STATES HER LEGS HURT. PATIENT GETS VERY EMOTIONAL AT TIMES AND CRIES. STATES SHE WILL NOT TAKE ANTIDEPRESSANTS. NEEDS [facility] EMOTIONAL SUPPORT AT TIMES.
--- NOTE | 2020-11-01 18:33 | NUR ---
PATIENT IS SLEEPING. O2 INCREASED TO 2 L NC O2 SAT 87-89. HAS BEEN ON 1 L MOST OF THE AFTERNOON.
--- NOTE | 2020-11-01 19:30 | NUR ---
Report received, orders acknowledged. Patient sleeping in bed on left side, respirations even and unlabored. 1LNC in place, SpO2 in the mid 90's. Call light within reach.
--- NOTE | 2020-11-01 20:00 | NUR ---
Patient sleeping in bed, rouses easily to voice. 1LNC in place, SpO2 in the mid-90's. PM medications given, IV vanco hung and infusing. Vital signs taken, assessment complete. Lung sounds dim in the bases. Patient denies nausea or SOB. Reports pain of 7/10, mostly as a headache. Patient requests sprite, which is provided. Patient up to toilet with FWW and SBA, steady on feet. 350 mls of yellow urine noted. Patient returns to bed. Denies needs at this time, call light within reach.
--- NOTE | 2020-11-01 21:30 | NUR ---
Patient given prn pain medication (see MAR) and prn acetaminophen for headache. Snack provided per patient request. Reports feeling hot, blankets removed, room temp lowered. Patient denies further needs. Call light within reach.
--- NOTE | 2020-11-01 22:00 | NUR ---
Report given to RN. Patient transfered to [place] with all belongings.
--- NOTE | 2020-11-01 22:14 | NUR ---
PT ARRIVED TO FLOOR VIA BED FROM CCU. SBA FWW TO TOILET. PROCESSING MANAGER IN ROOM WITH PT AT THIS TIME.
--- NOTE | 2020-11-01 22:27 | NUR ---
ICE WATER AND REGULAR SODA PROVIDED.
--- NOTE | 2020-11-01 23:12 | NUR ---
MIDNIGHT SNACK TUNA SALAD PROVIDED.
--- NOTE | 2020-11-02 00:09 | NUR ---
ANSWERED CALL LIGHT. SBA PATIENT TO THE BATHROOM USING WALKER. PATIENT IS BACK IN BED. O2 BACK ON. CALL LIGHT IN REACH.
--- NOTE | 2020-11-02 02:05 | NUR ---
CHECKED ON PT. PT SLEEPING LEFT LATERAL. EVEN UNLABORED BREATHING NOTED. NO APPARENT SIGNS OF DISTRESS.
--- NOTE | 2020-11-02 03:36 | NUR ---
answered call light. SBA TO BATHROOM AND BACK TO BED USING WALKER. ICE WATER, CUP OF ICE AND SODA PROVIDED.
--- NOTE | 2020-11-02 05:45 | NUR ---
CALL LIGHT ANSWERED. PT MUST VOID. PT REPORTS BEING "TOO WEAK" TO MAKE IT TO THE TOILET. BSC BROUGHT TO ROOM. SBA FWW TO BSC. PT VOIDED AND THEN GOT BACK IN BED AND BEGAN CRYING THAT "THIS IS NOT A GOOD DAY" AND THAT SHE "JUST DOESNT FEEL GOOD TODAY". PT REPORTS PAIN IN HER HIP AND ABDOMEN OF 10/10 AND NAUSEA. 4MG IV ZOFRAN ADMINISTERED FOLLOWED BY 10MG PO OXYCODONE. PT PASSED LARGE FLATUS AND SEEM TO CALM SOME. WARM BLANKET PROVIDED. CALL LIGHT WITHIN REACH. NO FURTHER NEEDS AT THIS TIME.
--- NOTE | 2020-11-02 07:11 | NUR ---
Report from HERMINIO Bhardwaj. Patient ambulating to bathroom with TOP PRINTING PRESS OPERATOR at this time.
--- NOTE | 2020-11-02 09:53 | NUR ---
AM MEDICATIONS ADMINISTERED. ASSESSMENT COMPLETED. STATES SHE IS HAVING PAIN IN SHOULDERS BILAT, ABDOMEN, HIP, BACK. PRN ANALGESICS PROVIDED. ASSIST TO BATHROOM, CONTINENT OF URINE. RETURNS TO BED. SKIN UNDER PANNUS CLEANED AND DESENEX PROVIDED. CALL LIGHT IN REACH, BED RAILS UP X2.
--- NOTE | 2020-11-02 10:21 | NUR ---
Lying on right side. Respirations even and unlabored. Eyes closed. No signs of discomfort noted. Call light in reach. Bed rails up X2.
--- NOTE | 2020-11-02 13:44 | NUR ---
Assist to bathroom, uses walker and standby assist. Continent of urine. Returns to bed. Warm blanket and PRN analgesic provided. Denies other needs at this time.
--- NOTE | 2020-11-02 14:14 | NUR ---
PT IS LAYING IN BED. PT GIVEN ICE WATER, SODA, AND ICE CHIPS. VITALS AND I&OS ARE DOCUMENTED. CALL LIGHT IN REACH. NO FURTHER ASSISTANCE NEEDED AT THIS TIME.
--- NOTE | 2020-11-02 14:14 | NUR ---
PT RESTING IN BED, ALERT AND SEEMED INTERESTED IN CONVERSATION. HAD PLEASANT VISIT, PT STATES SHE IS MAKING PROGRESS. PT MENTIONED THAT SHE IS AFRAID TO EAT. GAVE ENCOURAGEMENT, PT REQUESTED PRAYER. WILL FOLLOW
--- NOTE | 2020-11-02 15:16 | NUR ---
o2 SATS 84-89% ON 1l/MIN PER NC. OXYGEN INCREASED TO 2L/MIN PER NC. DENIES OTHER NEEDS AT THIS TIME.
--- NOTE | 2020-11-02 15:46 | NUR ---
PATIENT RESTING WITH EYES CLOSED ON LEFT SIDE. NO SIGNS OF DISCOMFORT AT THIS TIME. CALL LIGHT IN REACH. IV FLUIDS INFUSING. BED RAILS UP X2
--- NOTE | 2020-11-02 16:22 | NUR ---
Spoke with Tasia Valentine caregiver of several years. She states pt plans on going home with cg's on discharge. Pt is sleeping.
--- NOTE | 2020-11-02 16:30 | NUR ---
Shelby remains in an apartment with State paid cg who assist her daily She believes she needs increased cg hours, but has not discussed this with her senior strategy manager yet. She states she returned due to severe abd pain. She wants to go home on dc, but states she would go to a SNF if needed. We discussed needs are pending at this time, until we know she will need. Her long time cg Kristel was in and visited with her and myself.
--- NOTE | 2020-11-02 17:28 | NUR ---
Patient laying bed today. Ambulates to bathroom with standby assist and walker frequently. PRN analgesics with minimal effect on patient med per ratings. Slept well throughout the day. IV antibiotics continue as well as IV fluids.
--- NOTE | 2020-11-02 17:53 | NUR ---
EATING SUPPER AT THIS TIME. DENIES NEEDS.
--- NOTE | 2020-11-02 19:10 | NUR ---
REPORT RECEIVED FROM CHARMAINE DURHAM. PT CURRENTLY NAPPING IN BED, O2 IN PLACE, IVF INFUSING, NO APPARENT NEEDS. WILL CONTINUE TO MONITOR
--- NOTE | 2020-11-02 20:02 | NUR ---
PT REQUESTS PRN PAIN MEDICATION FOR EPIGASTRIC/BACK PAIN. IVF INFUSING WNL. CALL LIGHT IN REACH, NO OTHER NEEDS
--- NOTE | 2020-11-02 20:20 | NUR ---
IN TO GET PT VITALS, I&Os DONE PT BACK FROM THE TOILET, 2PA FWW, WATER AND SODA PROVIDED AT THIS TIME
--- NOTE | 2020-11-02 21:53 | NUR ---
MEDICATIONS ADMINISTERED AND ASSESSMENT COMPLETE. IV ABX AND IVF INFUSING WNL. PT RESTING IN BED WATCHING TV, STATES PAIN IS TOLERABLE BUT PRESENT IN ABDOMEN. TELE IN PLACE, 2L O2 ON, CPOX IN PLACE. PT TOLERATING REG DIET. JELLO PROVIDED. NO FURTHER NEEDS.
--- NOTE | 2020-11-02 23:12 | NUR ---
ROUNDED ON pt LEGAL SERVICES PROFESSIONAL STATES pt HAS QUESTIONS ABOUT OXYGEN NEED. pt RESTING IN BED WITH EYES CLOSED, APPEARS TO BE SLEEPING. 2L OXYGEN BY NC IN PLACE. BREATHING UNLABORED.
--- NOTE | 2020-11-03 00:43 | NUR ---
CALL LIGHT ANSWERED. PRN PAIN MEDICATION ADMINISTERED FOR 10/10 ABD PAIN, HEAD ACHE, NECK PAIN. NO ADDITIONAL REQUESTS AT THIS TIME. CALL LIGHT IN REACH. 2L OXYGEN BY NC IN PLACE.
--- NOTE | 2020-11-03 02:04 | NUR ---
CALL LIGHT ANSWERED. 1PA WITH FWW TO RESTROOM FOR VOID AND BACK TO BED. pt REQUIRING ASSISTANCE WITH SITTING UP TO GET OUT OF BED. INDEPENDENT WITH AMBULATION. ICE CHIPS AND SPRITE PROVIDED. CALL LIGHT IN REACH.
--- NOTE | 2020-11-03 04:50 | NUR ---
up to br, voided, back to bed, 1pSBA/fww, voided large amounts of urine. c/o h/a. will notify primary RN, O2 in place, IVF infusing.tolerated well.
--- NOTE | 2020-11-03 04:50 | NUR ---
IN TO GET PT VITALS WITH RN TO PASS MEDS, WARM BLANKET PROVIDED AT THIS TIME, NO FURTHER NEEDS
--- NOTE | 2020-11-03 05:09 | NUR ---
CALL LIGHT ANSWERED. pt C/O 06/09 PAIN IN ABDOMEN. PRN FLEXERIL, TYLENOL ADMINISTERED. ICE PACK PROVIDED. CALL LIGHT IN REACH. VSS. 2L OXYGEN BY NC IN PLACE. TRAY TABLE CLEARED.
--- NOTE | 2020-11-03 06:35 | NUR ---
IN TO GET PT UP TO THE TOILET, SBA FWW, PT BACK TO BED, NO FURTHER NEEDS AT THIS TIME
--- NOTE | 2020-11-03 07:20 | NUR ---
Report from HERMINIO Lux. Patient lying on left side, eyes closed, respirations even and unlabored. O2 remains in place. Allowed to rest. Call light in reach, bed rails up X2.
--- NOTE | 2020-11-03 07:34 | NUR ---
Recieved report from HERMINIO Lux. Patient previously reported a headache. Patient currently sleeping with cold wash cloth over face. Will continue to monitor.
--- NOTE | 2020-11-03 09:00 | NUR ---
Assessment completed. Lying in bed. States pain 9/10, generalized and headache. Unable to keep eyes open at this time. Answers questions appropriately. AM medications administered by Rm Blackwood, Vegetable Canner. Denies other needs at this time.
--- NOTE | 2020-11-03 09:30 | NUR ---
ASSESSMENT COMPLETED. PATIENT IS SLEEPY AND LETHARGIC. PATIENT SIDE-LYING LEFT IN BED WITH CALL LIGHT IN REACH. REPORTS CONTINUOUS HEADACHE. OFFERED ORAL ANALGESICS BUT PATIENT FELL ASLEEP DURING CONVERSATION, PAIN MEDICATION HELD AT THIS TIME. ACTIVE BOWEL SOUNDS, ABDOMEN TENDER TO TOUCH. PATIENT IS CURRENTLY WORKING ON EATING BREAKFAST AND DENIES ANY FURTHER NEEDS AT THIS TIME.
--- NOTE | 2020-11-03 10:14 | NUR ---
Magoether IV site working at this time. Left wrist with pain and slight edema noted. Right AC leaks when flushed. BOth IV's DC'd and new IV started by Rm Blackwood, production miner, with this nurse at bedside.
--- NOTE | 2020-11-03 10:24 | NUR ---
PATIENT AMBULATED THE HALLS FROM ROOM TO NURSES STATION AND BACK. IS CURRENTLY SITTING UP IN THE CHAIR. BOTH IV SITES LEAKED/INFILTRATED. NEW IV PLACED IN THE LEFT FOREARM, WAS TOLERATED WELL. CALL LIGHT WITHIN REACH. PERSONAL BELONGINGS WITHIN REACH. DENIES FURTHER NEEDS AT THIS TIME.
--- NOTE | 2020-11-03 10:33 | NUR ---
media monitor Gaviota
--- NOTE | 2020-11-03 11:30 | NUR ---
PATIENT CALLED AND REQUESTED TO GO BACK TO BED. HELPED TRANSFER FROM CHAIR TO BED. OFFERED TO TAKE PATIENT FOR A WALK BEFORE GETTING BACK INTO BED, PATIENT REFUSED. CALL LIGHT WITHIN REACH. BED RAILS UP X2. PERSONAL BELONGINGS WITHIN REACH. PATIENT DENIES FURTHER NEEDS AT THIS TIME.
--- NOTE | 2020-11-03 13:05 | NUR ---
Lying in bed on left side. Respirations even and unlabored. Call light in reach, allowed to rest at this time.
--- NOTE | 2020-11-03 13:38 | NUR ---
PATIENT IN BED RESTING. STILL WORKING ON LUNCH TRAY. REPORTS 05/09 PAIN. ORAL ANALGESICS OFFERED. CALL LIGHT WITHIN REACH. PERSONAL POSSESIONS WITHIN REACH. BED RAILS UP X2.
--- NOTE | 2020-11-03 13:48 | NUR ---
ASSESSMENT COMPLETED. PO ANALGESIC ADMINISTERED FOR PAIN. PATIENT STATES "I JUST DON'T FEEL GOOD IN MY STOMACH". SIDE-LYING LEFT IN BED. CALL LIGHT WITHIN REACH. PERSONAL BELONGINGS WITHIN REACH. WILL CONTINUE TO MONITOR.
--- NOTE | 2020-11-03 13:58 | NUR ---
Patient lying in bed. Complaining of abdominal pain. PRN analgesic provided. Assessment completed. Denies other needs. Call light in reach, bed rails up X2.
--- NOTE | 2020-11-03 14:56 | NUR ---
PATIENT UP TO SHOWER AND BACK TO BED. WITH MINIMAL ASSISTANCE. SET UP REQUIRED FOR SHOWER. NO REPORTS OF PAIN OR COMPLICATIONS DURING SHOWER. STATES PAIN LEVEL PRIOR TO SHOWER WAS AND IS STILL AN 8/10. AGREEABLE TO GETTING IN THE CHAIR FOR DINNER. CALL LIGHT WITHIN REACH. DENIES FURTHER NEEDS AT THIS TIME.
--- NOTE | 2020-11-03 15:12 | NUR ---
No change in plan for dc. Pt now plans on dc to home with cg.
--- NOTE | 2020-11-03 16:41 | NUR ---
Patient lying in bed. Eyes closed, respirations even and unlabored. Allowed to rest. Call light in reach, bed rails up X2.
--- NOTE | 2020-11-03 16:54 | NUR ---
Patient uses call light for assist to recliner. 1 person assist to recliner with walker. Call light in reach. Denies other needs.
--- NOTE | 2020-11-03 17:41 | NUR ---
Patient calls for assistance. Tearful. States she is in excruciating pain. Rating pain 9/10. States she is slightly nauseated, feeling hot and having pain in hip, shoulders, headache. See EMAR. Assist into bed and repostioned for comfort. VS WNL. Cold rag also provided. Denies other needs. Call light in reach. Bed rails up X2.
--- NOTE | 2020-11-03 18:20 | NUR ---
Patient has been up in the chair a few times today. Has been groggy in between activities but remained easy to awaken. Both original IV sites infiltrated and started leaking, both were DC'd and a new IV site was placed in the left forearm. Continuous fluids discontinued. Remains on 2L O2 when sleeping. Tele Dc'd. Recieved PRN pain medications @ roughly 1400 and 1800. Patient walked in lin after breakfast and is to be encouraged to walk after each meal. Patient adamently refused ambulating after lunch and dinner. The goal is encourage activity as much as possible. Patient was set up for a shower this afternoon and was able to shower herself with minimal assistance.
--- NOTE | 2020-11-03 19:03 | NUR ---
REPORT RECEIVED FROM SN CHRISTIANA. PATIENT IN BED WITH EYES CLOSED, O2 IN PLACE. BREATHING EVENLY AND UNLABORED. NO APPARENT NEEDS AT THIS TIME. CALL LIGHT IN REACH.
--- NOTE | 2020-11-03 19:30 | NUR ---
1930 - IN TO GET PT UP TO VOID, PT READY TO WALK, [id number] - PT WALKED FROM ROOM TO NURSES STATION AND BACK, 1949 - PT SETTED IN BED, ICE WATER PROVIDED, FRESH ICE CHIPS FOR SODA PROVIDED, PROVIDED PT WITH LEFTOVERS FROM DINNER, ALSO PROVIDED NV NEW WATER CUP PT STATES IT SMELLS LIKE PAINT, RN AWARE OF STATEMENT, [phone] - CHATTING WITH PT, NO FURTHER NEEDS AT THIS TIME
--- NOTE | 2020-11-03 20:30 | NUR ---
IN TO GET VITALS, I&Os DONE, PT DONE WITH WALLY, RN COMING TO RM FOR MEDS/IV, NO FURTHER NEEDS AT THIS TIME
--- NOTE | 2020-11-03 20:40 | NUR ---
MEDICATIONS ADMINISTERED, VITALS AND I/O'S COMPLETE. PT STATES HER PAIN IS NOT BEING MANAGED THE WAY SHE WOULD IDEALLY HOPE. PT STATES HAS HAD TROUBLE IN PAST WITH HER "PAIN DOCTORS", REPORTING THAT HER NEEDS ARE NOT BEING MET BUT CANNOT CHANGE PCP DUE TO INSURANCE. PT STATES SHE FEELS HER BLOOD PRESSURE WOULD BE EASIER TO CONTROL IF HER PAIN WAS MANAGED ADEQUATELY. THIS RN DISCUSSED OPTIONS THAT WE HAVE AVAILABLE HERE FOR HER, SHE IS COOPERATIVE AND WOULD LIKE TO CONTINUE WITH CURRENT PRN MEDS, AND FELT SHE JUST NEEDED TO VOICE HER FRUSTRATIONS. PT IS CURRENTLY ON ROOM AIR, TOLERATING WELL. IV ABX INFUSING. PT REPORTS NO NEEDS, MADE PLAN FOR PRN MEDS. CALL LIGHT IN REACH.
--- NOTE | 2020-11-03 22:01 | NUR ---
IN TO ASST PT TO THE TOILET, [place] FWW, BACK IN BED, C\O IV SITE ITCHING, TOLD RN, IN TO ASSESS PT, NO FURTHER NEEDS AT THIS TIME
--- NOTE | 2020-11-03 22:15 | NUR ---
PT IV INFILTRATED, NEW IV STARTED BY MILTON DURHAM. PT TOLERATED WELL. PRN PAIN MEDICATIONS ADMINISTERED. COLD COMPRESS TO INFILTRATION SITE. ABX INFUSING WNL. CALL LIGHT IN REACH
--- NOTE | 2020-11-03 23:04 | NUR ---
IN TO ASST PT WITH ICK PACK, NO FURTHER NEEDS AT THIS TIME
--- NOTE | 2020-11-03 23:42 | NUR ---
CALL LIGHT ANSWERED, PT REQUESTS TO USE BR. SBA WITH FWW. 02 VIA NC AT 2L ONCE BACK IN BED. NO OTHER REQUESTS AT THIS TIME
--- NOTE | 2020-11-04 01:14 | NUR ---
CALL LIGHT ANSWERED, PT AMBULATED TO BR TO VOID WITH SBA AND FWW. 2L O2 IN PLACE WHEN BACK TO BED. THIS RN ASSISTED WITH COMBING HAIR, REPOSITIONED IN BED. NO FURTHER REQUESTS
--- NOTE | 2020-11-04 02:35 | NUR ---
Rounded on patient, resting in bed with eyes closed. O2 in place. Breathing even, unlabored. Call light in reach.
--- NOTE | 2020-11-04 03:55 | NUR ---
Call light answered, pt requests SBA to use BR. Uses FWW, hunched over but steady gait. Back to bed with 2L o2. No other requests.
--- NOTE | 2020-11-04 05:42 | NUR ---
Morning VS complete, patient resting in bed with 2L [address] I/O's complete. Pt denies needs at this time.
--- NOTE | 2020-11-04 07:32 | NUR ---
0708: Report received from Maci DURHAM. Pt sleeping at this time.
--- NOTE | 2020-11-04 09:44 | NUR ---
PT SLEEPING AND AWAKES TO VOICE AND STATES SHE HAS A STOMACH ACHE THAT IS UNDER CONTROL AND SHE QUICKLY FELL BACK TO SLEEP. SAT 96% ON 2L AT THIS TIME. ASSESSMENT COMPLETED, CALL CHRISTIANSON WITHIN REACH.
--- NOTE | 2020-11-04 10:02 | NUR ---
PT CONTINUES SLEEPING, CALL CHRISTIANSON IS WITHIN REACH.
--- NOTE | 2020-11-04 11:24 | NUR ---
SAT 96% ON 2L, O2 REMOVED. IT WAS ENCOURAGED FOR THE PT TO AMBULATE AND TO SIT IN HER CHAIR AND NOT BE IN BED ALL DAY, SHE REFUSED AT THIS TIME. THE IMPORTANCE OF AMBULATION WAS GIVEN AND SHE CONTINUES TO REFUSE. PT DID USE HER IS WHEN IT WAS ENCOURAGED. PT AMBULATED TO THE BR AND IS NOW BACK IN BED WITH HER CALL CHRITSIANSON IN REACH.
--- NOTE | 2020-11-04 11:32 | NUR ---
PT SLEEPING, SAT IS 90% ON ROOM AIR.
--- NOTE | 2020-11-04 11:44 | NUR ---
Sat now 90% while sleeping.
--- NOTE | 2020-11-04 11:44 | NUR ---
PT FRIENDLY, ALERT AND SEEMS PLEASED I STOPPED BY. PT FEELS BETTER, GAVE GYISEL, REI AND BLESSING. WILL FOLLOW NEEDED
--- NOTE | 2020-11-04 12:39 | NUR ---
pt assisted up to BR for void with use of walker. To chair for lunch.
--- NOTE | 2020-11-04 13:07 | NUR ---
PT STATES SHE HAS SOME ABD DISCOMFORT BUT STATES IT IS TOLERABLE AND THAT REPOSITIONING HELPS IT. SHE REFUSED A WALK AND WAS ASSISTED BACK TO BED AT HER REQUEST. PT QUICKLY TO SLEEP. ASSESSMENT COMPLETED. CALL CHRISTIANSON WITHIN REACH.
--- NOTE | 2020-11-04 13:17 | NUR ---
Shelby voiced concerns about her safety upon returning home. JESUS johnson and Dr Alberto both notified of the pt's concerns.
--- NOTE | 2020-11-04 13:59 | NUR ---
1355: Pt sleeping, call ballard within reach.
--- NOTE | 2020-11-04 14:00 | NUR ---
Notified by Jacky Grubbs, Shebly is upset and afraid to go home without cg 24 hrs/day. In and spoke with pt. Asked if she afraid to go home and she denies, I then asked if she would like to go to a SNF and she yells, "no". I then asked if she is comfortable going home with cg and she states, "yes".
--- NOTE | 2020-11-04 14:18 | NUR ---
AFTER I WAS DONE WITH VITALS WERE DONE. HEY LETS GO FOR A WALK AND SHE REFUSED AND RUDE.
--- NOTE | 2020-11-04 15:04 | NUR ---
Pt sleeping, call ballard within reach.
--- NOTE | 2020-11-04 15:40 | NUR ---
Pt states her pain increased in her hips and above her navel following at trip to the and back to bed. She states her pain is a 9, pt medicated, see emar.
--- NOTE | 2020-11-04 17:27 | NUR ---
Pt called and states she will walk now. She ambulated in the lin with a SBA and her FWW for about 40 feet and returned to her room. Pt is now sitting up in her chair eating her dinner. She tolerated the walk well but leans over the front of the walker and she states she can't stand up straight.
--- NOTE | 2020-11-04 17:35 | NUR ---
Pt assisted back to her bed at this time, she states she has some pain but that it is currently controled, she denies the need for anything for it. Call ballard within reach.
--- NOTE | 2020-11-04 18:46 | NUR ---
Pt appears to be sleeping at this time.
--- NOTE | 2020-11-04 19:10 | NUR ---
PT LYING IN BED. SHIFT REPORT RECIEVED BY RN. CALL LIGHT IN REACH.
--- NOTE | 2020-11-04 21:53 | NUR ---
in to asst pt to the toilet, sba fww, pt back to bed at this time, no further needs
--- NOTE | 2020-11-04 23:06 | NUR ---
PT LYING IN BED. REPOSITIONED IN BED. VS STABLE. ASSESSMENT COMPLETE. I AND O'S DONE. SCHEDULED MEDS GIVEN. PT C/O SOB, 1L O2 GIVEN PER REQUEST AND SITTING UP IN BED. LUNG SOUNDS CLEAR AND DIM. CALL LIGHT IN REACH.
--- NOTE | 2020-11-04 23:09 | NUR ---
PT LYING IN BED. EYES CLOSED. RR WNL WITH UNLABORED BREATHING. CALL LIGHT IN REACH.
--- NOTE | 2020-11-04 23:54 | NUR ---
IN TO ASST PT TO THE TOILET, SBA FWW, PT BACK TO BED, NO FURTHER NEEDS
--- NOTE | 2020-11-05 00:03 | NUR ---
PT REPOSITIONED IN BED. C/O SOB. 3L O2 NC ADMINISTERED. O2 SAT 94% NOTED. PT STATES THAT HER DOCTOR SHOULD BE PRESCRIBING CPAP BUT HAS NOT GOT AHOLD OF THEM. CALL LIGHT IN REACH.
--- NOTE | 2020-11-05 00:27 | NUR ---
pt DESAT TO 88% WHILE AWAKE LAYING IN BED. REVIEWED CHARTING, APPEARS pt HAS BEEN WEARING 2L MOST OF STAY. PLACED ON 2L O2 VIA NC. CALL LIGHT IN HAND.
--- NOTE | 2020-11-05 02:25 | NUR ---
IN TO ASST PT WITH PILLOW AND REPOSITING IN BED, NO FURTHER NEEDS
--- NOTE | 2020-11-05 03:05 | NUR ---
PT LYING IN BED. ASSESSMENT COMPLETE. WHEEZING NOTED ON UPPER BILATERAL LUNGS. PT C/O 10/10 PAIN ON R SHOULDER. ICE PACK GIVEN. PRN PAIN MEDS ADMINISTERED. REPOSITIONED PT IN BED. DENIES SOB. 1L O2 SAT NOTED. CALL LIGHT IN REACH.
--- NOTE | 2020-11-05 04:27 | NUR ---
IN TO GET PT UP TO THE TOILET, SBA FWW, NOW BACK TO BED, SODA PROVIDED, NO FURTHER NEEDS AT THIS TIME
--- NOTE | 2020-11-05 08:15 | NUR ---
SBA to pepe, w/fww. Patient encouraged to stand up when using fww, with hands on handles, patient refuses, unsteady. Patient up in chair for breakfast, linens changed. new ice in ice pack. call light in reach
--- NOTE | 2020-11-05 08:30 | NUR ---
PT C/O 06/09 BACK PAIN W/ ACTIVITY. REQUESTING PAIN MEDICATION. 5 MG OXYCODONE AND TYLENOL GIVEN. PT RESTING IN BED. 22 G IV IN IRCK FLUSHING WELL, NO REDNESS OR SWELLING NOTED. IV ROCEPHIN INFUSING. MORNING MEDICATIONS GIVEN AND ASSESSMENT COMPLETE. LUNG SOUNDS ARE CLEAR, DIMINISHED BASES. BOWEL TONES ACTIVE. PT STATES SHE HAS NOT HAD A BM IN 4 DAYS, HOWEVER THIS RN WAS TOLD IN REPORT THAT PT HAS BM YESTERDAY AND IT IS CHARTED WELL. PT REFUSING TO GET UP TO CHAIR AT THIS TIME D/T BACK PAIN. CALL LIGHT IN REACH.
--- NOTE | 2020-11-05 09:30 | NUR ---
PT SLEEPING. DR. KNOX IN TO SEE PT. PT WOKEN FOR EVALUATION BY NO ACUTE CHANGES. NEW ORDER FOR DC AFTER LAST DOSE OF VANCO. IV VANCO IS NOW INFUSING. POWDER MEDICATION APPLIED TO PANNUS AND FOLDS. NO REDNESS NOTED IN ABDOMINAL AREA. PT REPORTS PAIN HAS DECREASED TO 4/10. CALL LIGHT IN REACH.
[2020-11-05] MEDS ORDERED: DULCOLAX5 MG PO (09:43)
--- NOTE | 2020-11-05 10:18 | NUR ---
patient resting in bed with eyes closed, woke to voice, Patient unhappy we are in for vitals "again" as she is insistant someone was just in at 9am. Upon checking in the systema nd talking with her nurse, this family nurse practitioner found the last vitals were done @7am. Patient becoming belligerent "fine, F do them again, and get this thing(IV) out of my arm." Charge nurse Kaila notified, Kaila into room, patient agreeed to have vitals taken. Call light in reach, no other needs
--- NOTE | 2020-11-05 11:00 | NUR ---
DC INSTRUCTIONS REVIEWED W/ PT AND CAREGIVER PRESENT. VANCO INFUSION COMPLETE, IV FROM RICK REMOVED, CATH INTACT. PT DRESSED AND WHEELED TO CAREGIVER CARE. DEPARTED FACILITY @ 3445.
== END 2020-11-05 11:30 | disposition home or self-care (01) | DRG 872 ==
LOC: ED 22:21 → CCU 22:22 → MS 11-01 22:17
PROVIDERS: ADMIT Student in an Organized Health Care Education/Training Program; ATTEND Student in an Organized Health Care Education/Training Program
DX: A41.9 Sepsis, unspecified organism (principal); L03.311 Cellulitis of abdominal wall; Z68.42 Body mass index [BMI] 45.0-49.9, adult; E66.2 Morbid (severe) obesity with alveolar hypoventilation; Z20.822 Contact with and (suspected) exposure to COVID-19; K57.90 Diverticulosis of intestine, part unspecified, without perforation or abscess without bleeding; E83.42 Hypomagnesemia; G89.4 Chronic pain syndrome; M25.552 Pain in left hip; I10 Essential (primary) hypertension; J44.9 Chronic obstructive pulmonary disease, unspecified; F32.9 Major depressive disorder, single episode, unspecified; F17.210 Nicotine dependence, cigarettes, uncomplicated; M25.512 Pain in left shoulder; M25.511 Pain in right shoulder; Z66 Do not resuscitate; Z88.8 Allergy status to other drugs, medicaments and biological substances; Z88.5 Allergy status to narcotic agent; Z88.1 Allergy status to other antibiotic agents; Z79.899 Other long term (current) drug therapy; Z79.1 Long term (current) use of non-steroidal anti-inflammatories (NSAID); Z79.891 Long term (current) use of opiate analgesic
CPT/HCPCS: 36415; 51701; 71045; 74177; 74250; 80048; 80053; 80202; 81001; 83605; 83690; 83735; 84100; 85025; 87040; 87045; 87046; 87077; 87205; 93306; 96365; 96366; 96367; 96368; 96372; 96375; 96376; 99285-25; 99406; C9113; C9803; G0378; J0696; J1170; J1650; J2405; J2550; J3370; J3475; J7030; J7060; J7121; Q9967; U0003

== ENCOUNTER 2021-01-05 20:46 | Emergency (ER) | payer OTHER ==
[~2021-01-05] VITALS: Ht 162.6 cm; Wt 131.1 kg
[~2021-01-05 20:46] MED LIST changes: +DULCOLAX5 MG PO
[2021-01-06] MEDS ORDERED: CEFPODOXIME PR200 MG PO (01:12)
== END 2021-01-06 02:49 | disposition home or self-care (01) ==
LOC: ED 20:46
PROC: 0T9B70Z Drainage of Bladder with Drainage Device, Via Natural or Artificial Opening (ICD-10-PCS; principal; 2021-01-05)
DX: N39.0 Urinary tract infection, site not specified (principal); M25.552 Pain in left hip; I10 Essential (primary) hypertension; J44.9 Chronic obstructive pulmonary disease, unspecified; F17.200 Nicotine dependence, unspecified, uncomplicated; Z88.8 Allergy status to other drugs, medicaments and biological substances; Z88.1 Allergy status to other antibiotic agents; Z88.5 Allergy status to narcotic agent; Z79.899 Other long term (current) drug therapy
CPT/HCPCS: 51701; 74176; 99284-25; J0696; J1885; J2270; J2405; J7121

== ENCOUNTER 2021-01-16 04:27 | Emergency (ER) | payer OTHER ==
[~2021-01-16] VITALS: Ht 162.6 cm; Wt 129.8 kg
[~2021-01-16 04:27] MED LIST changes: +CEFPODOXIME PR200 MG PO
[2021-01-16] MEDS ORDERED: HYDROCODON-ACE1 EA10 PO (05:19)
[2021-01-16] MEDS ORDERED: NYSTATIN15 GM TOP (05:28)
== END 2021-01-16 05:32 | disposition home or self-care (01) ==
LOC: ED 04:27
DX: M54.5 Low back pain (principal); I10 Essential (primary) hypertension; J44.9 Chronic obstructive pulmonary disease, unspecified; F17.200 Nicotine dependence, unspecified, uncomplicated; Z88.8 Allergy status to other drugs, medicaments and biological substances; Z88.5 Allergy status to narcotic agent; Z88.1 Allergy status to other antibiotic agents; Z79.899 Other long term (current) drug therapy
CPT/HCPCS: 81001; 99283

== ENCOUNTER 2021-03-31 09:57 | Emergency (ER) | payer OTHER ==
[~2021-03-31] VITALS: Ht 162.6 cm; Wt 129.8 kg
[~2021-03-31 09:57] MED LIST changes: +NYSTATIN15 GM TOP
[2021-03-31] MEDS ORDERED: LIDODERM1 EACH TOP (12:42)
[2021-03-31] MEDS ORDERED: OXYCODONE HCL5 MG PO (12:42)
== END 2021-03-31 13:06 | disposition home or self-care (01) ==
LOC: ED 09:57
DX: S22.41XA Multiple fractures of ribs, right side, initial encounter for closed fracture (principal); W18.30XA Fall on same level, unspecified, initial encounter; I10 Essential (primary) hypertension; J44.9 Chronic obstructive pulmonary disease, unspecified; F17.200 Nicotine dependence, unspecified, uncomplicated; Z88.1 Allergy status to other antibiotic agents; Z88.8 Allergy status to other drugs, medicaments and biological substances; Z88.5 Allergy status to narcotic agent; Z79.899 Other long term (current) drug therapy
CPT/HCPCS: 71046; 80048; 85025; 94640; 96374; 96375; 99284-25; A9270; J1885; J3010; J7030

== ENCOUNTER 2021-04-02 04:26 | Inpatient (IN) | payer OTHER ==
[~2021-04-02] VITALS: Ht 162.6 cm; Wt 122.7 kg
[~2021-04-02 04:26] MED LIST changes: +LIDODERM1 EACH TOP
[2021-04-02] MEDS ORDERED: DOXYCYCLINE HY100 MG PO (06:29)
[2021-04-02] MEDS ORDERED: PROVENTIL HFA6.7 GM INH (06:29)
[2021-04-02] MEDS ORDERED: PREDNISONE50 MG PO (06:29)
--- NOTE | 2021-04-02 06:53 | EKG ---
[facility] [address] [place] [address] Signed Sinus tachycardia with premature atrial complexes Anterior infarct (cited on or before 26-NOV-2016) Abnormal ECG When compared with ECG of 29-JAN-2019 02:15, premature atrial complexes are now present Nonspecific T wave abnormality now evident in Lateral leads Confirmed by SERGIO PATHAK MD ([id number]) on 04/02/2021 6:53:29 AM Electronically Signed By: SERGIO PATHAK MD 04/02/21 0653 PATIENT NAME: CHASTITY BONILLA Electrocardiogram DATE OF : 58 PHYSICIAN: SERGIO PATHAK MD REPORT #: [id number] REPORT IS CONFIDENTIAL AND NOT TO BE RELEASED WITHOUT AUTHORIZATION
--- NOTE | 2021-04-02 08:50 | NUR ---
Report recieved from ER, HERMINIO Johnson. Pt transfered to the Med-Surg floor via stretcher. Pt needed 2PA to move to new bed. VSS on 2L via NC. Pt c/o 9/10 pain in ribs, PRN pain meds administered per pt request/provider order. Admission and assessment complete, pt had boyer/wallet and 2 rings put into safe. Pt has her own 4-wheeled walker in room along with her purse, keys, and cellphone. Pt request breakfast try ordered and brought to room. Hong from PT in room, pt was able to transfer to chair w/ 1PA SBA w/personal walker. Pt now sitting up in chair eating breakfast. Pt requested O2 be taken off, 93% on RA, will continue to spot check O2 sats. Call light in reach, no other needs at this time.
--- NOTE | 2021-04-02 11:41 | NUR ---
PT ASSISTED TO BATHROOM, SBA WITH 4WW, NOW SITTING IN CHAIR. PT DENIES OTHER NEEDS AT THIS TIME.
--- NOTE | 2021-04-02 12:55 | NUR ---
Pt sitting up in chair eating lunch. Aspercream applied to R shoulder and R side of neck per pt request/provider order. Fresh ice water given, no further needs at this time. Pt remains 93-94% on RA. Call light in reach.
--- NOTE | 2021-04-02 15:35 | NUR ---
PT REQUESTING TO RETURN TO BED, SBA. PT THEN REQUESTED TO GO TO BATHROOM, SBA, VOIDED. ASSISTED BACK TO BED. PT REQUESTING FAN, EXPLAINED THAT HOSPITAL POLICY LIMITS FAN IN ROOMS THAT ARE ON ISOLATION. DISCUSSED WITH PT IF SHE UNDERSTANDS COVID TEST WILL BE REQUIRED FOR SNF PLACEMENT AND SHE STATES "THEY CANT MAKE ME DO IT, ITS AGIANST MY CONSTITUTIONAL RIGHTS, I WONT GO THEN." DISCUSSED WITH PT THAT IT WILL BE REVISITED AND TO CONSIDER THE COVID TEST SO THAT SHE COULD RECEIVE THE ADDITIONAL SUPPORT AND REHAB SHE FEELS SHE NEEDS. BS ASSESSED. PT DENIES OTHER NEEDS AT THIS TIME.
--- NOTE | 2021-04-02 17:43 | NUR ---
Pt resting in bed safely w/ call light in reach. Dinner and breakfast order placed. Pt denies any other needs at this time.
--- NOTE | 2021-04-02 18:52 | NUR ---
Pt c/o rib pain, PRN pain meds given per request/provider order. Pt also given 2 ice packs for R side ribs.
--- NOTE | 2021-04-02 18:53 | NUR ---
Pt admited to the floor at 0900 from ER, pt here for PT/OT after rib fx due to falling down a ramp. Pt is a 1PA/SBA w/FWW to BR or BSC depending on pain level. IV fluids infusing per provider order,
--- NOTE | 2021-04-02 21:00 | NUR ---
PT ASSESSMENT COMPLETE. PT RESTING IN BED WITH CPAP IN PLACE, RT AT BEDSIDE SETTING UP CPAP. PT IS SLOW TO RESPOND TO WRITERS QUESTIONS. ONLY RESPONDS WITH GRUNTS AND HEAD MOVEMENTS. PT DOES NOT OPEN HER EYES BUT MINIMALLY DURING ASSESSMENT. PT RATES PAIN 7/10 TO R RIBS. PRN TYLENOL OFFERED, PT DECLINES PRN UNTIL NARCOTIV AVAILABLE AT 10. PT DENIES NAUSEA OR SOB AT THIS TIME. LUNG SOUNDS DIM IN BILATERAL LOWER LOBES. ABDOMEN OBESE, BT'S ACTIVE, NONTENDER TO PALPATION. LIDOCAINE PATCH REMOVED FROM R RIBS. ICE PACKS LEFT IN PLACE. PT REPORTS NUMBNESS TO LLE, STATES THAT IS NEW SINCE HER RECENT FALL. CMS INTACT. VSS. IV FLUSHED, WNL AND PATENT. PT DENIES FURTHER NEEDS AT THIS TIME. CALL LIGHT IN REACH.
--- NOTE | 2021-04-02 22:52 | NUR ---
PT ROUNDING. PT RESTING IN BED, CPAP MASK IN PLACE. PT DENIES NEEDS AT THIS TIME. DECLINES TO GET UP AND USE THE BATHROOM. CALL LIGHT WITHIN PT REACH.
--- NOTE | 2021-04-03 00:30 | NUR ---
HANDOFF REPORT GIVEN TO HERMINIO SHELBY.
--- NOTE | 2021-04-03 03:01 | NUR ---
Pt in aerosol/airborne pprecautions. cont to decline covid test. using CPAP. hard to woke up using touch n verbal cues. flickers eyes open , declined to turn to left side for RN to do assessment. BP rechecked several times, not helpful lifting arms. asked if she needed to get up to urinate as she has not voided this shift, no answer, turns her head the other way. when asked if she needs a pain pill, there is no answer, again then she staed "no". fluids and call light at bedside. will cont to assess and reinforce POC, assess UO
--- NOTE | 2021-04-03 06:18 | NUR ---
Took several cues to woke her up, using CPAP. then it took several cues and help from another RN to help her up to br. Used her own FWW, walked hounchedback, slow, declines to used socks. voided QS cloudy yellow urine. Pt has very stron bad sheldon odor, declined to let me do sheldon care " I can still do it". Back to bed, CPAP back on. assessment and vitals done. Blood work done and sent to lab. procedure explained. semi cooperative. c/o R rib and L hip pain medicated with 1 [place]. Procedures explained prior to, takes several verbal cues and majority of those cues pt does not answer. tolerated sips of water.
--- NOTE | 2021-04-03 10:10 | NUR ---
IN TO PATIENT ROOM, PATIENT RESTING. YAS RN AT BEDSIDE. ATTEMPTED TO ASK PATIENT IF SHE WAS INTERESTED IN PLACEMENT AT THIS TIME. PATIENT STATES "NOPE BECAUSE I AM NOT GOING TO BE COVID TESTED." EXPLAIN TO PATIENT THAT NO FACILITIES WILL ACCEPT PATIENT AT THIS TIME WITHOUT A COVID SWAB. ASKED PATIENT IF SHE HAS BEEN VACCINATED. PATIENT STATES "YES. ASKED PATIENT FOR PROOF OF VACCINATIONS, SHE STATES "YES I WENT TO SCHOOL." THIS RN REFOCUSED AND ASK PATIENT IF SHE CURRENTLY HAD BEEN VACCINATED FOR COVID AND HAD PROOF OF VACCINATION. PATIENT STATES "NOPE." THIS RN ASKING PATIENT IF SHE HAS CAREGIVERS AT HOME TO ASSIST HER AT THIS TIME. PATIENT STATES "NOPE." AT THIS TIME THIS RN FEELS THAT ANY FURTHER CONVERSATION WITH THIS PATIENT WILL NOT BE BENIFICAL AT THIS TIME PATIENT APPEARS UPSET ABOUT THE CURRENT PLACEMENT SITUATION. THIS RN OUT OF THE ROOM, DR. PATHAK NOTIFIED. WILL ATTEMPT TO DISCUSS PLACEMENT AND DISCHARGE PLANNING WITH PATIENT AT A LATER TIME.
--- NOTE | 2021-04-03 10:28 | NUR ---
PATIENT ASSESMENT COMPLETED. VITALS TAKEN AND RECORDED. INTAKE AND OUPUT RECORDED. MORNING MEDICATIONS GIVEN PER ORDER.PATIENT IS ON RA. COARSE LUNG SOUNDS NOTED. PATIENT EDUCATED ON TURN, COUGH, AND DEEP BREATH. PATIENT IS VERY SOMBER AND CLOSES EYES DURING CARE. PATIENT DENIES ANY NEEDS. CALL LIGHT AND BELINGINGS ARE WITHIN REACH.
--- NOTE | 2021-04-03 10:48 | NUR ---
PATIENT COMPLETED PHYSICAL THERAPY. REPORTS 10/10 PAIN. PATIENT GIVEN PRN PAIN MEDICATION. PATIENT IS SL FOR SHOWER. JAVA PERFORMANCE ENGINEER TO COMPLETE SHOWER. NO FURTHER NEEDS NOTED. CALL LIGHT IN REACH.
--- NOTE | 2021-04-03 12:12 | NUR ---
2PA WITH FWW FROM CHAIR TO SHOWER TO CHAIR. ASSISTED PATIENT WITH SHOWER. REDNESS AND IRRITATION NOTED UNDER BREASTS AND ON REAR, REPORTED TO PRIMARY RN. PATIENT IMPULSIVE AT TIMES DURING SHOWER, DID NOT WAIT FOR ASSISTIVE DEVICE OR FOLLOW INSTRUCTIONS. LUNCH ORDER PLACED. CALL LIGHT IN REACH AND NO FURTHER NEEDS AT THIS TIME.
--- NOTE | 2021-04-03 13:02 | NUR ---
PATIENT IS UP TO RECLINER EATING LUNCH. PATIENT DENIES ANY NEEDS. CALL LIGHT IN REACH.
--- NOTE | 2021-04-03 13:42 | NUR ---
PT BEING CARED FOR IF UNDER PRECAUTIONS. REFUSING C-19 VACCINATION AND SWAB. WILL CONTINUE TO FOLLOW
--- NOTE | 2021-04-03 14:10 | NUR ---
PATIENT UP TO BATHROOM WITH SBA, BACK TO CHAIR. VITALS AND I&O'S CHARTED. CALL LIGHT IN REACH AND NO FURTHER NEEDS AT THIS TIME.
--- NOTE | 2021-04-03 14:52 | NUR ---
PATIENT ASSISTED A SBA W/FWW TO BED FROM RECLINER. PATIENT TOLERATED ACTIVITY WELL. PATIENT RATES PAIN AT A 7/10. PATIENT GIVEN PRN PAIN MEDICATION PER ORDER. PATIENTS IV INFUSING PER ORDER. PATIENT DENIES ANY FURTHER NEEDS. CALL LIGHT IN REACH.
--- NOTE | 2021-04-03 15:08 | NUR ---
MED REC COMPLETE
--- NOTE | 2021-04-03 16:10 | NUR ---
PATIENT BED TO BATHROOM TO BED WITH SBA AND FWW. ICE PACKS PROVIDED PER PATIENT REQUEST. CALL LIGHT IN REACH AND NO FURTHER NEEDS AT THIS TIME.
--- NOTE | 2021-04-03 17:51 | NUR ---
PATIENT UP TO RECLINER. VITALS TAKEN AND RECORDED. INTAKE AND OUPUT RECRODED. PATIENT DENIES ANY NEEDS. CALL LIGHT IN REACH.
--- NOTE | 2021-04-03 17:59 | NUR ---
PATIENT TO BED FROM CHAIR, 1PA FWW. CALL LIGHT IN REACH. NO FURTHER NEEDS AT THIS TIME.
--- NOTE | 2021-04-03 19:09 | NUR ---
PATIENT BED TO BATHROOM TO BED, SBA WITH FWW. ICE PACKS PROVIDED PER PATIENT REQUEST. CALL LIGHT IN REACH AND NO FURTHER NEEDS AT THIS TIME.
--- NOTE | 2021-04-03 19:20 | NUR ---
BEDSIDE REPORT RECEIVED FROM OFFGOING RNYAS. PT REQUESTING PAIN MEDICATION. DENIES FURTHER NEEDS. CALL LIGHT IN REACH.
--- NOTE | 2021-04-03 20:10 | NUR ---
PT ASSESSMENT COMPLETE. PT UP TO THE BATHROOM AND BACK TO BED WITH 1 PA AND FWW. PT WALKS BENT OVER ON WALKER DUE TO RIB PAIN. PT REPORTS PAIN 10/10 TO R RIBS WHEN RETURNING TO BED. PRN AND SCHEDULED MEDICATIONS ADMINISTERED. PT ALSO REPORTS SOB WITH EXERTION, REQUESTS TO WEAR CPAP, PLACED. PT DENIES NAUSEA. HR IRREGULAR. UNDER BREASTS AND PANNUS WITH EXCORIATIONS, WEEPING. MEDICATIONS ADMINISTERED SCHEDULED, SEE EMAR. PILLOW CASES AND WASH CLOTHS PLACED UNDER SKIN FOLDS TO HELP ABSORB MOISTURE. PT EDUCATION PROVIDED. GENERALIZED EDEMA PRSENT TO BLE'S. PT DENIES FURTHER NEEDS AT THIS TIME. CALL LIGHT IN REACH. POC FOR THIS SHIFT DISCUSSED, PT STATES UNDERSTANDING.
--- NOTE | 2021-04-03 21:00 | NUR ---
PT'S CAREGIVER HERE, PT REQUESTS WALLET OUT OF SAFE TO GIVE CAREGIVER HER PERSONAL BELONGINGS. COMMUNITY FACILITATOR TO PT ROOM WITH BELONGINGS, WITNESS BELONGINGS GIVEN TO PT'S CAREGIVER PER PT'S REQUEST. PAD MACHINE OPERATOR TO ROOM AFTERWARDS TO REPLACE CPAP MASK PER PT'S REQUEST. PT AGREES THAT ALL OF HER PERSONAL BELONGINGS WERE PRESENT AND ACCOUNTED FOR, AND GIVEN TO THE CAREGIVER SO THAT SHE COULD PAY PT'S BILLS FOR HER. PT DENIES FURTHER NEEDS AT THIS TIME. CALL LIGHT IN REACH.
--- NOTE | 2021-04-03 22:50 | NUR ---
REPORT FROM MERLIN DURHAM, CALL LIGHT IN REACH, RESTING EYES CLOSED.
--- NOTE | 2021-04-03 23:00 | NUR ---
PT UTLIZES CALL LIGHT, REQUESTS TO USE THE BATHROOM. PT UP TO BATHROOM AND BACK TO BED WITH SBA. ICE PACKS REPLACED PER PT REQUEST. ASSISTED TO REPLACE CPAP MASK. PT DENIES FURTHER NEEDS AT THIS TIME. CALL LIGHT IN REACH.
--- NOTE | 2021-04-04 06:35 | NUR ---
pt awakened for am po meds. resting well with cpap on when rn entered.
--- NOTE | 2021-04-04 07:05 | NUR ---
Report received from Juana DURHAM. Pt resting in bed with CPAP on, allowed to rest at this time. Will continue plan of care
--- NOTE | 2021-04-04 08:13 | NUR ---
PATIENT BED TO BATHROOM TO BED, SBA. BOARD UPDATED AND FRESH WATER GIVEN. BREAKFAST ORDER TAKEN. CALL LIGHT IN REACH AND NO FURTHER NEEDS AT THIS TIME.
--- NOTE | 2021-04-04 08:35 | NUR ---
Scheduled medications administered and assessment completed. Pt resting in bed, awakens to voice. Compliant with cares and meds provided. Breakfast ordered. Pt states no SOB at this time, reports 7/10 pain to ribs, PRN medication provided. Pt reports no other needs at this time. call light in reach
--- NOTE | 2021-04-04 09:08 | NUR ---
[facility]. PT HAS STATED THAT SHE WILL KILL HERSELF AT HOME IF WE DISCHARGE HER HOME AND SHE CAN'T FIND A CAREGIVER. [facility] STATED THEY WOULD BE IN TO EVALUATE AFTER THEY ARE DONE AT [facility] THIS MORNING.
--- NOTE | 2021-04-04 10:00 | NUR ---
Notified by sales product specialist in MDT meet at 0830, pt not wanting to be discharged. Pt originally stating she does not have care givers, pt is declining nasal swab, and then today when dc was discussed, pt is now stating she is suicidal. Called and spoke with Karmen Olivera at [facility] and she states pt cont. to have two caregiver which see her in her home. She gave me the CM, Nancy's, number. I have not been able to reach, two messages have been left on work phone and cell phone. [facility] [phone]. [facility] was notified by sales product specialist of pt stating she is suicidal and will visit. I spoke with Dr. Morrison and he does feel pt could qualify for SNF. She will have to have a Covid swab for placemnt. Pt has not vaccinated for covid. Spoke with RT and Fabian will ask pt if she will agree to covid swab.
--- NOTE | 2021-04-04 10:35 | NUR ---
Spoke with [facility] and they have cleared this pt for dc. She states pt is now stating she will go home. In and spoke with Shelby and her friend Shirley. Pt no longer feeling suicidal and wants to go home as soon as possible. Pt denies need for taxi. Friend will go and get her car and transport her to home. Pt denies other needs at home, has all DME needed.
[2021-04-04] MEDS ORDERED: PERCOCET 5-3251 EACH PO (10:52)
[2021-04-04] MEDS ORDERED: CARVEDILOL6.25 MG PO (10:52)
--- NOTE | 2021-04-04 11:25 | NUR ---
Scheduled carvedilol administered, pt agrees to take this dose after much encouragement by this RN. Pt states she will not continue taking this medication upon discharge as she "worries it will make her dizzy and make her fall down again." She also reports that she "does not care about her blood pressure and it's not going to change". This RN attempted to discuss benefits of managed BP. Pt listens but does not verbalize understanding. Pharmacist enters room at this time
--- NOTE | 2021-04-04 12:15 | NUR ---
PT DISCHARGED VIA WITH BELONGINGS IN HAND. ALL DISCHARGE TEACHING PROVIDED BY THIS RN, WRITTEN AND VERBAL. PT DRESSED BY SELF. VSS, A+O, IV REMOVED WNL. PT'S FRIEND TO DRIVE HOME. PT IN STABLE CONDITION, NO NEEDS IDENTIFIED.
== END 2021-04-04 12:15 | disposition home or self-care (01) | DRG 183 ==
LOC: ED 04:26 → MS 08:11
PROVIDERS: ADMIT Internal Medicine; ATTEND Internal Medicine
DX: S22.43XA Multiple fractures of ribs, bilateral, initial encounter for closed fracture (principal); J96.21 Acute and chronic respiratory failure with hypoxia; J98.11 Atelectasis; E66.2 Morbid (severe) obesity with alveolar hypoventilation; Z68.42 Body mass index [BMI] 45.0-49.9, adult; G89.4 Chronic pain syndrome; M25.552 Pain in left hip; F32.9 Major depressive disorder, single episode, unspecified; I10 Essential (primary) hypertension; J44.9 Chronic obstructive pulmonary disease, unspecified; F17.200 Nicotine dependence, unspecified, uncomplicated; K59.09 Other constipation; W01.0XXA Fall on same level from slipping, tripping and stumbling without subsequent striking against object, initial encounter; Z88.8 Allergy status to other drugs, medicaments and biological substances; Z88.5 Allergy status to narcotic agent; Z88.1 Allergy status to other antibiotic agents; Z79.899 Other long term (current) drug therapy; Z79.52 Long term (current) use of systemic steroids
CPT/HCPCS: 71045; 71260; 80048; 80053; 83690; 83735; 84484; 85025; 93005; 93010; 94640; 94644; 94645; 94660; 94760; 97110; 97116; 97162; 97166; 99285-25; A9270; J1650; J2920; J3010; J3480; J7512; Q9967; U0003

== ENCOUNTER 2021-10-22 13:07 | Inpatient (IN) | payer OTHER ==
[~2021-10-22] VITALS: Ht 162.6 cm; Wt 118.3 kg
[~2021-10-22 13:07] MED LIST changes: +CARVEDILOL6.25 MG PO; +DOXYCYCLINE HY100 MG PO; +PREDNISONE50 MG PO; +PROVENTIL HFA6.7 GM INH
--- NOTE | 2021-10-22 18:30 | NUR ---
REPORT RECEIVED FROM ED RN REJI MCCANN PT STABLE ON 3L VIA PA.
--- NOTE | 2021-10-22 18:45 | NUR ---
PT ARRIVES TO THE MEDSURG FLOOR FROM THE ED VIA STRETCHER, PT ABLE TO SCOOT OVER FROM STRETCHER TO BED, PT DID NEED HELP W/ REPOSITIONING HIGHER IN THE BED HOWEVER. PT'S SATS 84% ON 3L VIA NC IT WAS OBSERVED THAT PT IS MAINLY BREATHING THROUGH MOUTH, THEREFORE PT PLACED ON 4L VIA OXYMASK, O2 SATS NOW 97%, ALL OTHER VSS, PT AFEBRILE. PT IS VERY SOMULENT BUT AWAKEN EASILY, PT ORIENTED X3. PT DENIES ANY PAIN, NAUSEA, OR SOB, ONLY C/O HUNGER. PT RESTING SAFELY IN BED W/ CALL LIGHT IN REACH AND IV FLUIDS INFUSING PER PROVIDER ORDER.
--- NOTE | 2021-10-22 19:20 | NUR ---
[facility] HERMINIO PELAEZ AT BEDSIDE. pt DROWSY, AWAKES TO VOICE. 4LOXYMASK IN PLACE. RR EVEN AND UNALBORED. IV FLUIDS INFUSING, IV SITE WNL. BED ALARM ON FOR SAFETY. CALL LIGHT IN REACH.
--- NOTE | 2021-10-22 20:00 | NUR ---
VBG ORDERED, BUT NOT YET COMPLETE. LAB UNAVAILABLE. HEAD OF TRAINING AND DEVELOPMENT BECKY IN ROOM TO COLLECT BLOOD DRAW AND SEND TO LAB. pt DROWSY BUT AWAKENS TO VOICE, pt UP 1PA TO BSC. INCONTINENT OF URINE. BED CHANGE DONE, DRY ATTENDS IN PLACE. pt BACK IN BED, REPORTS HUNGER, SNACK PROVIDED. NO FURTHER NEEDS, CALL LIGHT IN REACH. FRESH WATER ALSO GIVEN. BED ALARM ON FOR SAFETY.
--- NOTE | 2021-10-22 20:30 | NUR ---
DR CHAVES AT RN STATION, pt REPORTS PAIN WITH URINATION EARLIER IN SHIFT, PER REBECCA RN. VERBAL ORDERS READ BACK FOR 95MG PO PYRIDIUM TID PRN. pt HX ASTHMA AND SLEEP APNEA AND REPORTS USING CPAP MACHINE. PER DR CHAVES, OKAY TO USE CPAP MACHINE. HOME MACHINE NOT AVAILABLE IT IS AT pt's HOME. DR CHAVES ALSO AWARE OF VBG RESULTS AND VIEWED THEM HIMSELF AT RN STATION.
--- NOTE | 2021-10-22 20:51 | NUR ---
UPDATED OF PT STATUS, PAIN WITH VOIDING AND CPAP AT HOME. NEW ORDERS GIVEN
--- NOTE | 2021-10-22 21:30 | NUR ---
ASSESSMENT COMPLETE, PRN PYRIDIUM GIVEN (SEE EMAR). pt DROWSY, BUT WAKING UP. TOLERATED SNACK AND DRINKING WATER, NO ISSUES SWALLOWING NOTED. VSS, SPO2 UPPER 90 ON 4LOXYMASK, TITRATED TO 2LNC SO pt CAN EAT EVENING SNACK. SPO2 SUSTAINING AT 94%. IV SITES X2 WNL. BED ALARM REMAINS ON FOR SAFETY, CALL LIGHT IN REACH.
--- NOTE | 2021-10-22 22:05 | NUR ---
CALL LIGHT ANSWERED. 1 PA. PATIENT WET/PEED IN THE BED. PATIENT GOT UP AND USE THE BEDSIDE COMMODE. CHANGED THE BED LINEN. CHANGED GOWN. PATIENT STATED CANNOT WIPE/MICHAEL CARE. THIS SERGEANT AT [employer] DID CLEAN/MICHAEL CARE. PATIENT IS BACK IN BED. SNACK BOX PROVIDED. WARM BLANKET PROVIDED. RT WAS IN THE ROOM.
--- NOTE | 2021-10-22 23:15 | NUR ---
pt COMPLETED ALIYAHICH BOX, DENIES NAUSEA. WENDY IN ROOM TO FIT pt TO CPAP. CPAP 14 ON RA, SPO2 94% PER RT WENDY. WILL CONTINUE TO MONITOR, CALL LIGHT IN REACH.
--- NOTE | 2021-10-23 00:21 | NUR ---
CPAP ALARMING, WENDY IN ROOM. ISSUE RESOLVED. CPAP SETTINGS UNCHANGED. RT WENDY ADJUSTED FACE MASK, SPO2 MID 90'S, HR [id number]. WILL CONTINUE TO MONITOR. CALL LIGHT IN REACH.
--- NOTE | 2021-10-23 00:58 | NUR ---
pt REPORTS NEED TO VOID, 1PA TO BSC. pt IMPATIENT AND DOES NOT WAIT. 700MLS OUTPUT NOTED. HR UP TO 120'S WITH AMBULATION BUT RETURNED TO BASELINE ONCE BACK IN BED. pt ASYMPTOMATIC. RT WENDY NOW IN ROOM AND ASSISTING WITH CPAP MASK. SETTINGS NOW 14 CPAP WITH 24% O2- PREVIOUSLY 21%. SPO2 96%, HR 101. WBED ALARM REMAINS ON FOR SAFETY. CALL LIGHT IN REACH.
--- NOTE | 2021-10-23 03:50 | NUR ---
IN TO THE ROOM TO PROVIDE ICE WATER. PATIENT NEEDED TO USE THE BEDSIDE COMMODE 1PA. PATIENT ABLE TO PIVOT. PATIENT VOIDED 500 ML. PATIENT IS BACK IN BED. CPAP AND CPOX ARE BACK ON. BED ALARM ON FOR SAFETY. CALL LIGHT IN HAND'S REACH.
--- NOTE | 2021-10-23 04:08 | NUR ---
pt RESTING IN BED, EYES CLOSED. RR EVEN AND UNLABORED. IV PUMP CLEARED, IV SITE WNL. CPAP SET TO 14, 24% 02. SPO2 96%, HR 107. BED ALARM REMAINS ON. ASSESSMENT COMPLETE, NO ACUTE CHANGES. CALL LIGHT IN REACH.
--- NOTE | 2021-10-23 05:07 | NUR ---
VSS AND I&O'S COMPLETE. FRESH WATER AT BEDSIDE. NO FURTHER NEEDS, CALL LIGHT IN REACH.
--- NOTE | 2021-10-23 06:40 | NUR ---
pt RESTING IN BED, CPAP IN PLACE-SETTINGS UNCHANGED. SPO2 MID 90'S, HR 101. FIELD START IV COMING LOOSE D/T pt SLEEPING ON HER LEFT SIDE. IV SITE DC'D, CATHETER TIP INTACT. BED ALARM ON, CALL LIGHT IN REACH.
--- NOTE | 2021-10-23 07:23 | NUR ---
pt BROUGHT IN BAG OF MEDS FROM HOME-NO NARCOTICS NOTED. MEDS MAINLY STOOLS SOFTENERS AND NSAIDS. JUAN CARLOS FROM PHARMACY AWARE AND INSTRUCTED THIS RN TO PLACE MEDS IN KITS LIST, PHARMACY TO [facility] MED[facility]. IVETTE ISABEL AWARE.
--- NOTE | 2021-10-23 07:35 | NUR ---
Patient resting in bed, eyes closed, respirations even and non labored. Patient has no needs. Personal supplies and call light within reach.
[2021-10-23] MEDS ORDERED: STOOL SOFTENER1 EACH PO (07:44)
[2021-10-23] MEDS ORDERED: DICLOFENAC SODI75 MG PO (07:45)
--- NOTE | 2021-10-23 08:03 | NUR ---
PATIENT HAD LARGE INCONT. VOID. PATIENT UP TO CHAIR, 1PA PIVOT. MICHAEL CARE DONE. LINENS CHANGED. CALL LIGHT IN REACH. NO FURTHER NEEDS AT THIS TIME.
--- NOTE | 2021-10-23 09:14 | NUR ---
Tylenol 650mg po admin for reports of back and hip pain, 03/09.
--- NOTE | 2021-10-23 09:30 | NUR ---
INTO PATIENT ROOM, PATIENT LAYING IN BED TALKING WITH VISITOR. CASE MANAGEMENT ASSESSMENT COMPLETE. WHILE TALKING WITH PATIENT, PHARMACY IN ROOM WITH BAG OF MEDICATIONS BROUGHT FROM PATIENT HOME BY EMS. PATIENT STATES TO PHARMACY THAT SHE IS NO LONGER TAKING MEDICATION, WHICH INCLUDES HER BP MEDICATIONS. TAMIKA PATIENT FRIEND ASKING FOR PATIENT LAST BP READING. ADVISED LAST BP 144/92 TO WHICH PATIENT STATES "THATS GOOD ISN'T IT." ADVISED PATIENT THAT HER BP IS CONSISTENT WITH HYPERTENSION. PATIENT STATES "OH WELL I AM REFUSED TO TAKE MY BLOOD PRESSURE MEDICATIONS AND I WON'T TAKE THEM AGAIN." THIS RN ADVISED PATIENT IT MAY BE HELPFUL TO DISCUSS HER MEDICATION ISSUES WITH HER PCP ON DISCHARGE. DISCUSSED PATIENT OPTIONS TO DISCHARGE TO A SN, PATIENT DECLINES TELLING HER VISITOR "ONCE YOU GO IN THERE YOU CAN NEVER LEAVE." PATIENT VISITOR TAMIKA STATES HE HAS BEEN CHECKING ON PATIENT EVERY MORNING AND PLANS TO CONTINUE WHEN SHE IS DISCHARGE. PATIENT STATES SHE IS NOW WC BOUND, BUT DOES HAVE A WALKER AT HOME. PATIENT VISITOR ALSO MENTION THAT THE PATIENT HAS A LIFE ALERT, BUT DID USE IT PRIOR TO BEING FOUND DOWN BEFORE THIS ADMISSION. PATIENT STATES SHE DOES HAVE A [employer] CAREGIVER, BUT IS LOOKING FOR A NEW ONE. AGAIN DISCUSSED OPTION FOR POSSIBLE PLACEMENT TO SNF. TAMIKA PATIENT FRIEND ENCOURAGING PLACEMENT, BUT PATIENT AGAIN DECLINES. WILL CONTINUE TO FOLLOW UP WITH PATIENT DURING HER STAY.
--- NOTE | 2021-10-23 10:13 | NUR ---
PATIENT REPOSTITIONED ONTO RIGHT SIDE. VITALS AND I&O'S CHARTED. CALL LIGHT IN REACH. BED ALARM ON. NO FURTHER NEEDS AT THIS TIME.
--- NOTE | 2021-10-23 10:53 | NUR ---
PT LAYING IN BED, FLETCHER MYRICK JUST FINISHING UP. PT SAID SHE IS TIRED, HOPES TO DC SATURDAY. GAVE ENCOURAGEMENT AND HAD PRAYER WITH PT. WILL FOLLOW
--- NOTE | 2021-10-23 12:20 | NUR ---
Patient resting in bed, eyes closed, respirations non labored. Patient is on 2L per nc as she desaturated to 88% on room air. Patient has no current distress or needs. IV site patent. Bed alarm intact.
--- NOTE | 2021-10-23 14:36 | NUR ---
PATIENT IN BED RESTING WITH EYES CLOSED. VITALS AND I&O'S CHARTED. CALL LIGHT IN REACH. NO FURTHER NEEDS AT THIS TIME.
--- NOTE | 2021-10-23 15:15 | NUR ---
Oxycodone 5mg po admin for reports of 10/10 back and hip pain.
--- NOTE | 2021-10-23 15:37 | NUR ---
Patient hitting remote against side of bed. This RN to bedside to see what is wrong-pt reports she cannot hear the tv and wants me to call the doctor so she can leave to go home. Patient reports she wants to go home so she can take her pain pills. Dr. Hua called at this time per pt request. Dr. Hua arrived a few minutes later to discuss plan of care with patient and medication for pain management. Pt reports she will now stay in hospital after speaking with provider.
--- NOTE | 2021-10-23 16:54 | NUR ---
Patient visiting with her friend. No needs at this time.
--- NOTE | 2021-10-23 17:05 | NUR ---
TYlenol 650mg po admin for reports of 6/10 back pain.
--- NOTE | 2021-10-23 18:28 | NUR ---
PATIENT IN BED WATCHING TV. VITALS AND I&O'S CHARTED. CALL LIGHT IN REACH. NO FURTHER NEEDS AT THIS TIME.
--- NOTE | 2021-10-23 18:35 | EKG ---
[facility] [address] [place], [place] [address] Signed Sinus tachycardia Anterolateral infarct (cited on or before 26-NOV-2016) Abnormal ECG When compared with ECG of 02-APR-2021 05:12, premature atrial complexes are no longer present Confirmed by SIDDHARTHA CHAVES DO ([id number]) on 10/23/2021 6:35:34 PM Electronically Signed By: SIDDHARTHA CHAVES DO 10/23/21 1835 PATIENT NAME: CHASTITY BONILLA Electrocardiogram DATE OF : 58 PHYSICIAN: SIDDHARTHA CHAVES DO REPORT #: [id number] REPORT IS CONFIDENTIAL AND NOT TO BE RELEASED WITHOUT AUTHORIZATION
--- NOTE | 2021-10-23 19:25 | NUR ---
REPORT RECEIVED FROM DAY SHIFT RN. PT LYING IN BED ALERT AND ORIENTED. DENIES NEEDS. WHITE BOARD UPDATED. CALL LIGHT IN REACH.
--- NOTE | 2021-10-23 20:45 | NUR ---
V/S TAKEN. PATIENT C/O HER CHIPS TAKEN AWAY FROM SOMEBODY. C/O SHE ONLY GOT 2 CHICKEN STRIPS FROM WHAT SHE ORDERED. PATIENT STATED "WANT TO HAVE SHOWER BEFORE BED AND BEFORE GOING HOME TOMORROW. THIS SUPERVISOR FINISHING DEPARTMENT TOLD PATIENT I CAN HELP AFTER ALL V/S ARE DONE AND EVERYTHING IS DONE. PATIENT UNDERSTOOD THAT IN THE RESIDENTIAL SUPPORT SPECIALIST IS LESS STAFF.
--- NOTE | 2021-10-23 21:15 | NUR ---
EVENING ASSESSMENT COMPLETE. SCHEDULED MEDS ADMINISTERED PER EMAR. PT REPORTS BACK PAIN 06/09. PRN FOR PAIN ADMINISTERED PER EMAR. DENIES SOB. 2L/NC IN PLACE. LUNGS DIM THROUGHOUT. RESPIRATIONS EVEN. PT REPORTS DINNER TRAY WAS REMOVED WHILE SHE WAS SLEEPING. REGULATORY CONSULTANT ORDERING SANDWICH BOX AND CHIPS FOR PT. PT REQUESTING SHOWER. DISCUSSED SHOWERING LATER THIS EVENING WHEN STAFF IS AVAILABLE. PT AGREEABLE. NO FURTHER NEEDS AT THIS TIME. CALL LIGHT IN REACH.
--- NOTE | 2021-10-23 22:03 | NUR ---
IN pt ROOM TO DELIVER SNACK TO pt. pt RESTING IN BED WITH EYES CLOSED, SNORING, BREATHING UNLABORED.
--- NOTE | 2021-10-23 22:05 | NUR ---
PATIENT CALLED FOR HER CHIPS. WENT IN TO THE ROOM AND GAVE THE CHIPS. NO OTHER NEEDS AT THIS TIME.
--- NOTE | 2021-10-23 22:50 | NUR ---
2 PA. PATIENT CALLED TO USE THE BEDSIDE COMMODE. THIS MUD TANK OPERATOR AND MUD TANK OPERATOR AVA IN THE ROOM HELPED PATIENT GETTING UP FROM BED WHILE PATIENT C/O HER LEGS DONT WANT TO MOVE. PATIENT ABLE TO PIVOT WITH HELP. PATIENT IS BACK IN BED. CLEANED PATIENT'S LOWER ABDOMEN. RN PUT POWDER. PLACED PILLOW CASES. CHANGED GOWN. COMBED AND TIED HAIR. CALL LIGHT IN REACH.
--- NOTE | 2021-10-23 23:15 | NUR ---
PT BACK IN BED AFTER USING BSC. UNDER PANNUS AND GROIN AREA CLEANED AND DRIED. DESENEX POWDER AND PILLOW CASES PLACED IN SKIN FOLDS. AREA RED AND SORE TO TOUCH. PT WEAK AND TIRED. AGREED TO WAIT FOR SHOWER UNTIL AM.
--- NOTE | 2021-10-23 23:25 | NUR ---
CALL LIGHT ANSWERED. TEMPERATURE ADJUSTED REQUESTED. NO ADDITIONAL REQUESTS.
--- NOTE | 2021-10-23 23:50 | NUR ---
PATIENT STATED " GOING TO TAKE SHOWER TOMORROW MORNING".
--- NOTE | 2021-10-23 23:58 | NUR ---
CALL LIGHT ANSWERED. CPAP MACHINE ALARMING. ASSISTED PT TO REPOSITION MASK. ALARMS RESOLVED. PT LYING ON LEFT SIDE. NO FURTHER NEEDS. CALL LIGHT IN REACH.
--- NOTE | 2021-10-24 03:07 | NUR ---
CALL LIGHT ANSWERED. PT STATES "I WAS DREAMING AND PEED THE BED." SBA TO BSC. SKIN CLEANSED WITH BATH WIPES. LINENS AND GOWN CHANGED. PT BACK TO BED, DERRICK WELL. WARM BLANKET PROVIDED. PT REPORTS LEFT HIP/LOWER BACK PAIN 06/09. PRN FOR PAIN ADMINISTERED PER EMAR. NEW BAG IVF INFUSING. PT EATING CHIPS. CPAP OFF AT THIS TIME. 2L/NC IN PLACE. NO FURTHER NEEDS. CALL LIGHT IN REACH.
--- NOTE | 2021-10-24 05:00 | NUR ---
PATIENT CALLED. V/S AND I&O'S DONE AND RECORDED. PATIENT GOT UP TO THE BEDSIDE COMMODE. PATIENT ABLE TO PIVOT. PATIENT IS BACK IN BED. NO OTHER NEEDS AT THIS TIME. CALL LIGHT IN REACH. ICE WATER REFRESHED.
--- NOTE | 2021-10-24 05:21 | NUR ---
SBA TO BSC TO VOID 200 ML. PT ABLE TO DO OWN MICHAEL CARE. BACK TO BED, DERRICK WELL. SpO2 92-94% ON RA. 2L/NC LEFT OFF AT THIS TIME. PT DOES NOT WISH TO PUT CPAP BACK ON. REPORTS LEFT HIP/RIGHT SHOULDER PAIN. PRN FOR PAIN ADMINISTERED PER EMAR. FRESH ICE WATER PROVIDED. NO FURTHER NEEDS AT THIS TIME. CALL LIGHT IN REACH.
--- NOTE | 2021-10-24 06:25 | NUR ---
CALL LIGHT ANSWERED. pt REQUESTING SPRITE, STATES "MY STOMACH DOESN'T FEEL GREAT". DIET SPRITE PROVIDED. NO ADDITIONAL REQUESTS.
--- NOTE | 2021-10-24 06:49 | NUR ---
IN TO SPOT CHECK SpO2. PT DROWSY, AWAKENS EASILY. SpO2 85-95% ON RA. 1L/NC PLACED. PT DOES NOT WANT CPAP AT THIS TIME. REQUESTS HOT CHOCOLATE AND EMESIS BAG "JUST IN CASE". PT ABLE TO REPOSITION SELF IN BED. HOB ELEVATED.
--- NOTE | 2021-10-24 07:23 | NUR ---
BEDSIDE REPORT FROM ARCELIA RN, PT RESTING IN BED EYES CLOSED RR 19BPM, NO DISTRESS NOTED. PT ON 1L OXYGEN, OXYGEN SATURATION 92% PER PULSE OXIMETRY AT BEDSIDE.
--- NOTE | 2021-10-24 08:16 | NUR ---
PT ALERT, WITH MULTIPLE COMPLAINTS ABOUT PHARMACY IN [facility] WITH PAIN MEDICATIONS GETTING FILLED. PT REFUSED [facility] THIS AM SHE SAID SHE DOES NOT TAKE AT HOME.
--- NOTE | 2021-10-24 09:30 | NUR ---
Spoke with Shelby. She plans on dc today. Has questions about a new mattress and I requested she call DME company she received her bed from or speak with her pcp. Pts bed is less than 5 years old. She has also changed her pharmacy and is now using [facility]. Updated Dr. Hua and he handwrote an RX for her meds. Rx faxed to [facility] for pt. Pt denies other needs friend, Luis, will pick her up and transport home.
[2021-10-24] MEDS ORDERED: CEFPODOXIME PR200 MG PO (10:28)
[2021-10-24] MEDS ORDERED: COREG6.25 MG PO (10:28)
--- NOTE | 2021-10-24 10:30 | NUR ---
PT UP TO SHOWER WITH SUPERVISED ASSISTANCE FROM PATIENT TRANSPORTATION DRIVER. DISCHARGE ORDERS IN, VERBALIZED OK TO CONTINUE HOME MEDICATIONS ON HER MED RECONCILIATION AND ADD NEW RX TO MED RECON.
--- NOTE | 2021-10-24 10:44 | NUR ---
PATIENT TO SHOWER CHAIR, 1PA PIVOT. PATIENT DID SHOWER MOSTLY INDEPENDENTLY. MICHAEL CARE, SKIN CARE, AM CARE, SHAMPOO DONE. PATIENT THEN BACK TO BED FROM SHOWER CHAIR, 1PA PIVOT. CALL LIGHT IN REACH. NO FURTHER NEEDS AT THIS TIME.
--- NOTE | 2021-10-24 11:00 | NUR ---
PT ENCOURAGE TO WAIT FOR HER RIDE IN HER INPT ROOM, PT SAID SHE DOES NOT WANT HER FRIEND TO HAVE TO WALK BACK HERE, PT SAID "I WANT TO DISCHARGE TO THE FRONT"
--- NOTE | 2021-10-24 11:08 | NUR ---
EDUCATION PROVIDED WITH DISCHARGE PACKET ON MEDICATIONS, LAST DOSE NEXT DOSE. DISCUSSED SIGNS AND SYMPTOMS TO SEEK MEDICAL EVALUATION WITH PRINT OUT ON UTI, IV SITE REMOVED WNL. FOLLOW UP APPOINTMENT MADE WITH CARD, AND PRINTED ON DISCHARGE PACKET. DISCUSSED IMPORTANCE OF ABX COMPLETION, SHE VERBALIZED UNDERSTANDING. V/S STABLE.
--- NOTE | 2021-10-24 12:31 | NUR ---
CONNECTED WITH PT ON WAY OUT AT DC. PT SMILING, GAVE ENCOURAGEMENT
== END 2021-10-24 11:10 | disposition home or self-care (01) | DRG 871 ==
LOC: ED 13:07 → MS 18:07
PROVIDERS: ADMIT Student in an Organized Health Care Education/Training Program; ATTEND Student in an Organized Health Care Education/Training Program
DX: A41.9 Sepsis, unspecified organism (principal); G93.41 Metabolic encephalopathy; N17.9 Acute kidney failure, unspecified; N39.0 Urinary tract infection, site not specified; E87.1 Hypo-osmolality and hyponatremia; Z20.822 Contact with and (suspected) exposure to COVID-19; G47.33 Obstructive sleep apnea (adult) (pediatric); G89.4 Chronic pain syndrome; M25.511 Pain in right shoulder; M25.512 Pain in left shoulder; I10 Essential (primary) hypertension; F32.A Depression, unspecified; J44.9 Chronic obstructive pulmonary disease, unspecified; F17.210 Nicotine dependence, cigarettes, uncomplicated; Z87.19 Personal history of other diseases of the digestive system; Z90.49 Acquired absence of other specified parts of digestive tract; Z90.710 Acquired absence of both cervix and uterus; Z88.1 Allergy status to other antibiotic agents; Z88.6 Allergy status to analgesic agent; Z88.8 Allergy status to other drugs, medicaments and biological substances; Z79.899 Other long term (current) drug therapy
CPT/HCPCS: 51701; 71045; 74177; 80048; 80053; 81001; 82803; 83605; 83690; 83735; 85025; 93005; 93010; 94660; 94760; 99285-25; C9803; J0696; J1650; J2405; J7121; Q9967; U0003

== ENCOUNTER 2021-12-01 08:59 | Emergency (ER) | payer OTHER ==
[~2021-12-01] VITALS: Ht 162.6 cm; Wt 136.1 kg
[~2021-12-01 08:59] MED LIST changes: +COREG6.25 MG PO
[2021-12-01] MEDS ORDERED: FLUTICASONE PRO16 GM NAS (09:15)
[2021-12-01] MEDS ORDERED: VENTOLIN HFA18 GM INH (09:15)
[2021-12-01] MEDS ORDERED: CEPHALEXIN500 MG PO (11:16)
[2021-12-01] MEDS ORDERED: HYDROCODON-ACE1 EA10 PO (11:16)
== END 2021-12-01 12:18 | disposition home or self-care (01) ==
LOC: ED 08:59
DX: M54.50 Low back pain, unspecified (principal); N39.0 Urinary tract infection, site not specified; I10 Essential (primary) hypertension; J44.9 Chronic obstructive pulmonary disease, unspecified; F17.200 Nicotine dependence, unspecified, uncomplicated; Z88.8 Allergy status to other drugs, medicaments and biological substances; Z88.5 Allergy status to narcotic agent; Z79.51 Long term (current) use of inhaled steroids; Z79.899 Other long term (current) drug therapy
CPT/HCPCS: 36415; 51701; 80048; 81001; 85025; 87088; 99283-25; A9270; J0696; J1100; J1885

== ENCOUNTER 2021-12-04 12:15 | Inpatient (IN) | payer OTHER ==
[~2021-12-04] VITALS: Ht 162.6 cm; Wt 118.7 kg
[~2021-12-04 12:15] MED LIST changes: +FLUTICASONE PRO16 GM NAS
[2021-12-04] MEDS ORDERED: OXYCODONE-ACET1 EAC1 PO (16:12)
[2021-12-04] MEDS ORDERED: DICLOFENAC SOD100 G1 TOP (17:13)
--- NOTE | 2021-12-04 19:03 | NUR ---
PATIENT IN BED RESTING AT THIS TIME. VISITOR IN ROOM. CALL LIGHT IN REACH. NO FURTHER NEEDS AT THIS TIME.
--- NOTE | 2021-12-04 19:16 | NUR ---
PATIENT ARRIVED VIA STRETCHER FORM ER WITH CREATIVE RECRUITER AND TRANSFERD HERSELF TO THE BED LOG ROLLING HERSELF. PATIENT IV FLUSHES FINE. PATIENT HAD NO C/O PAIN ON ARRIVAL. PATIENT ARRIVED AT 1700 AND AT 1705 ULTRASOUND HERE IN THE ROOM TO TO PERFORM AN ECHO. PATIENT'S CAREGIVER CRYSTYL ALSO IN THE ROOM. PATIENT FINISHED WITH ECHO AND WAS SENDING CAREGIVER OUT FOR [place] [employer] FOR HER AND THIS RN INFORMED THE PATIENT SHE WAS ON A SALT RESTRICTION AND I NEEDED TO GET HER MEAL FROM THE KITCHEN WHICH I DID. PATIENT ALSO INFORMED SHE HAS TO HAVE THE DIET MT. DEW BECAUSE THERE IS TO MUCH SODIUM IN THE REGULAR. PATIENT HAS YEAST UNDERBREAST, PANNUS, AND GROIN AREAS. PATIENT GOT UP AND VOIDED X1 IN BED SIDE COMMODE WITH 2PA. SHIFT REPORT GIVEN TO HERMINIO SORENSON. CAREGIVER WENT HOME TO GET PATIENT'S CPAP MACHINE AND PATIENT REMAINS ON 2L/NC AT THIS TIME. CALL LIGHT IN REACH.
--- NOTE | 2021-12-04 19:45 | NUR ---
RECEIVED REPORT FROM DAY SHIFT RN. PATIENT IS RESTING IN BED. NO NEEDS NOTED. CALL LIGHT IN REACH.
--- NOTE | 2021-12-04 20:06 | NUR ---
BROTHER AUDREY INQUIRED OF PT CONDITION, PT SLEEPING WILL ASK WHEN SHE WAKES.
--- NOTE | 2021-12-04 20:27 | NUR ---
RETURNED AUDREY'S CALL, PT STATED TO TELL AUDREY "I AM OK". AUDREY [place]UR[place],
--- NOTE | 2021-12-04 20:33 | NUR ---
US HERE TO DO THE CARODID SCAN. WITH ASSIST OF PROFESSIONAL BASS FISHERMAN, PT WAS ASSISTED TO HER BACK.
--- NOTE | 2021-12-04 22:22 | NUR ---
PATIENT ASSESMENT COMPLETED. PATIENTS VITALS TAKEN AND RECORDED. INTAKE AND OUTPUT RECORDED. PATIENTS SCHEDULED MEDICATIONS GIVEN PER ORDER. PATIENTS IV FLUSHED AND SL PER ORDER. PATIENT IS ON 2L VIA NC. PATIENTS ARMPITS, UNDER BREAST, UNDER PANUS, AND MICHAEL AREA COMPLETED. IN THESE AREAS PATIENT APPEARS TO HAVE YEAST AND YEAST SMELL NOTED. NIO COMPLETED FOR DESENEX POWDER. PATIENT IS ON TELE #9, SR AND SINUS TACH NOTED AT TIMES. PATIENT DENIES ANY FURTHER NEEDS. CALL LIGHT IN REACH.
--- NOTE | 2021-12-04 22:50 | NUR ---
PATIENT ASSISTED TO REPOSITION IN BED. RT IN ROOM TO SET UP PATIENTS HOME CPAP. PATIENT ASSISTED TO PUT ON HOME CPAP. NO FURTHER NEEDS NOTED. CALL LIGHT IN REACH.
--- NOTE | 2021-12-05 01:00 | NUR ---
PATIENT ASSISTED TO THE BSC A 1PA. PATIENT ABLE TO VOID. PATIENT IS BACK IN BED. PATIENT REPORTS NAUSEA. PRN NAUSEA MEDICATION GIVEN PER ORDER. VITALS TAKEN AND RECORDED. INTAKE AND OUTPUT RECORDED. PATIENT ASSISTED TO PUT HOME CPAP BACK ON. NO FURTHER NEEDS NOTED. CALL LIGHT IN REACH.
--- NOTE | 2021-12-05 01:54 | NUR ---
PT WAS SWABBED FOR COVID 19
--- NOTE | 2021-12-05 03:06 | NUR ---
PATIENT IS RESTING IN BED, RR 19. HOME CPAP WORN. PATIENTS CALL LIGHT IN REACH.
--- NOTE | 2021-12-05 04:55 | NUR ---
PATIENT ASSISTED TO THE BSC A 1PA. PATIENT ABLE TO VOID. PATIENT IS BACK IN BED RESTING. VITALS TAKEN AND RECORDED. PATIENTS INTAKE AND OUTPUT RECORDED. PATIENT ASSISTED TO PLACE HOME CPAP ON. NO FURTHER NEEDS NOTED. CALL LIGHT IN REACH.
--- NOTE | 2021-12-05 07:30 | NUR ---
THIS RN RECEIVED SHIFT REPORT FROM HERMINIO SORENSON. PATIENT RESTING QUIETLY IN HIGH FOWLERS POSITION IN BED, EYES CLOSED, RESPIRATIONS ARE REGULAR AND EVEN, AND CALL LIGHT IS IN REACH.
[2021-12-05] MEDS ORDERED: CYCLOBENZAPRINE5 MG PO (08:55)
[2021-12-05] MEDS ORDERED: TYLENOL325 MG PO (08:56)
[2021-12-05] MEDS ORDERED: NYSTOP60 GM TOP (08:57)
--- NOTE | 2021-12-05 10:22 | NUR ---
PATIENT GIVEN MORNING MEDICATIONS, ONE PERCOCET FOR 9/10 BACK PAIN.
--- NOTE | 2021-12-05 11:18 | NUR ---
PATIENT SITTING UP IN THE BED SIDE ARMCHAIR VISITING WITH 2 PEOPLE. PATIET HAS NO C/O PAIN AT THIS TIME. GABRIELA 3MM, LEFT AIRPORT SALES AGENT WEAKER THAN RIGHT, LEFT FOOT FLEXION AND EXTENSION WEAKER THAN RIGHT, LUNGS DIM THOUGHOUT MAINLY DUE TO PATIENT HABITUS. PATIENT HAS NO OTHER CARE NEEDS AT THIS TIME AND CALL LIGHT IS IN REACH.
--- NOTE | 2021-12-05 11:42 | NUR ---
Contacted [facility], Felipa, [facility], and [facility]. All have limited base. Will fax chart to all.
--- NOTE | 2021-12-05 12:42 | NUR ---
CCU CALLED AND INFORMED THIS RN PATIENT HAD ABOUT 13 SECONDS OF A-FIB WITH HR IN THE 160'S. THIS RN WENT IN AND PATIENT WAS ASLEEP IN THE BEDSIDE ARM CHAIR AND O2 SATS WERE 82%. THIS RN PLACED NASAL CANNULA AND HAD TO TITRATE UP TO 4L/NC TO GET O2 SATS TO 94%. PATIENT SAID SHE DID NOT FEEL ANYTHING DIFFERENT AND NO PAIN,"JUST REALLY TIRED". B/P IS STABLE WITH RESPS=16/MIN. PATIENT HAD ALSO PULLED OUT HER IV ACCIDENTALLY. THIS RN INFORMED ABOUT THE A-FIB AND O2 SAT CHANGES. PATIENT'S CALL LIGHT IS IN REAC AND HERMINIO MORALES WENT IN TO PLACE A NEW IV.
--- NOTE | 2021-12-05 12:50 | NUR ---
THIS RN TO ROOM TO ASSIST WITH IV START. IV STARTED TO RIGHT FORARM PER PROTOCOL. BRISK BLOOD RETURN NOTED. IV FLUSHED AND SALINE LOCKED, ALCOHOL CAP APPLIED. PTS PRIMARY RN UPDATED. CALL LIGHT WITHIN REACH.
--- NOTE | 2021-12-05 13:54 | NUR ---
MED REC COMPLETE
--- NOTE | 2021-12-05 14:30 | NUR ---
THIS RN AND 2 STUDENT NURSES IN THE PATIENT'S ROOM TRYING TO HELP PATIENT GET BACK INTO THE COMMODE AND IS NOT LISTENING TO INSTRUCTIONS AT ALL AND THIS RN WORRIED PATIENT IS GOING TO FALL BECAUSE SHE WILL NOT FOLLOW INSTRUCTIONS. THIS NURSE FINALLY SLID COMMODE RIGHT TO THE BED TO PREVEENT PATIENT FROM FALLEN AND SHE ROLLED HERSELF INTO THE BED. ONCE PATIENT WAS SITUATED IN BED DESENEX APPLIED LIBRALLY TO GROIN FOLDS BILAT, AXILLA FOLDS BILAT, UNDER PANNUS, AND UNDER BREASTS. PATIENT SITUATED ON HER RIGHT SIDE SO SHE CAN WATCH TV. PATIENT HAS NO OTHE CARE NEEDS AT THIS TIME. CALL LIGHT IS IN REACH.
--- NOTE | 2021-12-05 15:30 | NUR ---
THIS RN AND STUDENT NURSE EDIS IN TO GIVE PO CARDIAC MEDS. PATIENT UP ON BEDSIDE COMMODE AND TRYING TO GET BACK INTO BED. PT TRYING TO GIVE PATIENT INSTRUCTIONS ON MOVING BACK INTO THE BED AND PATIENT WAS NOT LISTENING TO PT AT ALL. PATIENT FINALLY JUST ROLLED HERSELF ON TO THE BED AND STAFF HAD TO HELP GET HER PULLED UP INTO THE BED. CARDIAC MEDS GIVEN. PATIENT ON HER RIGHT SIDE IN BED NOW RESTING QUIETLY ON 4L/NC. CALL LIGHT IN REACH. PATIENT HAS NO OTHER NURSE CARE NEEDS AT THIS TIME.
--- NOTE | 2021-12-05 15:30 | NUR ---
Received message from Cortney at [facility] in [place]. She is requesting further documentation. Notes from PT/OT/ST are now in and faxed with progress note from today.
--- NOTE | 2021-12-05 17:43 | NUR ---
PATIENT CALLED [facility]. THIS FRAME MAKER IN ROOM. ASKED PATIENT WHAT WAS WRONG, PATIENT SAID SHE IS FRUSTRATED. PATIENT MOVING LEGS BACK AND FORTH IN BED. HELPED PATIENT SIT UP AND MOVE TO CHAIR, 1PA FWW PIVOT. PATIENT BETTER NOW AND SAYS SHE IS COMFORTABLE. VITALS AND I&O'S CHARTED. CALL LIGHT IN REACH. NO FURTHER NEEDS AT THIS TIME.
--- NOTE | 2021-12-05 18:25 | NUR ---
MUNIRA MARKETING ASSOCIATE CAME AND GOT THIS RN TO GO INTO PATIENT'S ROOM. PATIENT WAS GETTING UP TO THE BEDSIDE COMMODE AND FELT SHE WAS TO WEAK AND SAT DOWN ON THE FLOOR AND SHE FELT SHE WAS TO WEAK TO TRY AND STAND BACK UP. MUNIRA AND THIS RN USED THE AVA LIFT TO PUT PATIENT BACK IN BED AND PATIENT USED A FRACTURE LAMAR TO VOID AND TOLERATED THAT WELL. PATIENT SITTING IN HIGH FOWLERS POSITION AT THIS TIME IN BED WATCHING TV. CALL LIGHT IS IN REACH AND PATIENT HAS NO OTHER CARE NEEDS AT THIS TIME.
--- NOTE | 2021-12-05 20:03 | NUR ---
RECEIVED REPORT FROM DAY SHIFT RN. PATIENT IS RESTING IN BED. NO NEEDS NOTED. CALL LIGHT IN REACH.
--- NOTE | 2021-12-05 20:27 | NUR ---
PATIENT ASSESMENT COMPLETED. PATIENTS VITALS TAKEN AND RECORDED. INTAKE AND OUTPUT RECORDED. PATIENTS IV IS SL AND FLUSHES WELL. ATTEMPTED TO GIVE SCHEDULED MEDICATION PER ORDER. PATIENT STATED "I AM NOT TAKING THIS FUVKING BLOOD PRESSURE PAIN MEDICATION." ATTEMPTED TO EDUCATE PATIENT ON THE IMPORTANCE OF TAKING HER BP MEDS AND HOW IT CORRELATES WITH HER STROKE. PATIENT STATED "I HAVE HIGH BLOOD PRESSURE BECAUSE NO ONE CARES ABOUT MY PAIN IT MAKES IT HICH." PATIENT REASSURED THAT WE ARE MANAGING HER PAIN. PATIENT THEN STATED "WHEN I GET OUT OF THIS HELLHOLE, I WONT TAKE ANY BLOOD PRESSURE MEDS.". AGAIN REEDUCATED PATIENT ON THE IMPORATANCE OF TAKING HER BP MEDS. PATIENT FINALLY AGREED TO TAKE HER BP MEDS. PATIENT RATES PAIN IN HER BACK AT A 5/10, PRN PAIN MEDICATION GIVEN PER ORDER. PATIENT PROVIDED WITH FRESH ICE WATER. PATIENT IS ON 4L VIA NC. PATIENT PLACE ON HOME CPAP. CALL LIGHT IN REACH. BED ALARM ON FOR SAFETY.
--- NOTE | 2021-12-05 22:30 | NUR ---
ASSISTED HERMINIO SORENSON. CHANGED PATIENT'S INCONTINENT ATTENDS. BED LINEN CHANGED. PATIENT HAD A PARTIAL BED BATH AND PUT ON FRESH GOWN. PATIENT REPOSITIONED. MILK PROVIDED PER PATIENT REQUEST.
--- NOTE | 2021-12-05 22:34 | NUR ---
PATIENT WAS INCONT OF URINE. BEDDING CHANGED. BED BATH COMPLETED. POWDER PLACED IN ARMPITS, UNDER PANUS, UNDER BREAST, AND IN GROIN AREA. ATTEND PLACED ON PATIENT. PATIENT PROVIDED WITH A SNACK. PATIENT DENIES ANY FURTHER NEEDS. PATIENT PLACED ON 4L VIA NC. CALL LIGHT IN REACH.
--- NOTE | 2021-12-05 22:51 | NUR ---
PATIENT CALLED. HELPED PUT ON HER CPAP. ROOM LIGHTS OFF. CALL LIGHT WITHIN REACH.
--- NOTE | 2021-12-05 23:46 | NUR ---
AIDEN BYNUM ASSISTED PATIENT TO USE BED LAMAR. PATIENT ABLE TO VOID. PATIENTS ATTEND HAD SMALL AMOUNT OF INCONT NOTED. PATIENTS ATTEND CHANGED AND MICHAEL CARE COMPLETED. PATIENT ASSISTED IN PLACING HOME CPAP ON. PATIENT REPOSITIONED IN BED. NO FURTHER NEEDS NOTED. CALL LIGHT IN REACH.
--- NOTE | 2021-12-06 02:05 | NUR ---
PATIENT CALLED TO USE THE BATHROOM. PATIENT USE THE BED LAMAR. VOIDED 200 PLUS MISSED ON THE CHUX. PATIENT ABLE TO REPOSITIONED WITH HELP. CPAP IS BACK ON. V/S AND I&O'S TAKEN AND CHARTED BY HERMINIO SORENSON.
--- NOTE | 2021-12-06 02:06 | NUR ---
PATIENT ASSISTED BY AIDEN BYNUM TO USE BEDPAN. PATIENT ABLE TO VOID. ATTEND CHANGED AND MICHAEL CARE COMPLETED BY IADEN BYNUM. VITALS TAKEN AND RECORDED. SCHEDULED MEDICATION GIVEN PER ORDER. PATIENT RATES PAIN AT A 5/10 IN HER BACK, PRN PAIN MEDICATION GIVEN PER ORDER. PATIENT PLACED BACK ON HOME CPAP. CALL LIGHT IN REACH.
--- NOTE | 2021-12-06 04:00 | NUR ---
PATIENT IS RESTING IN BED WEARING HOME CPAP AND EYES ARE CLOSED, RR 19. CALL LIGHT IN REACH.
--- NOTE | 2021-12-06 05:28 | NUR ---
PATIENT ASSISTED ONTO BED LAMAR. PATIENT ABLE TO VOID. PATIENTS ATEND CHANGED. PATIENTS VITALS TAKEN AND RECORDED. INTAKE AND OUTPUT RECORDED. PATIENT ON 4L VIA NC. NO FURTHER NEEDS NOTED. IV FLUSHED AND SL PER ORDER. NO FURTHER NEEDS NOTED. CALL LIGHT IN REACH.
--- NOTE | 2021-12-06 07:45 | NUR ---
THIS RN RECEIVED REPORT FROM YAS DURHAM. PT HAD CALLED PREVIOUSLY ABOUT NEEDING TO BE REPOISIOTNED. AIDNE BYNUM ABLE TO ASSIST THIS RN. PT ON CPAP WITH CALL LIGHT WITHIN REACH
--- NOTE | 2021-12-06 08:45 | NUR ---
Spoke with Mary from [facility]. They will accept this pt, but would like the therapy notes. Updated I faxed them late yesterday and she was able to find. States she will be able to accept this pt today if we can find transport. Updated Shelby and she states she will go to [place]. Asked her if she has anyone who could bring her clothing and she states she does not. Informed we can send hospital gowns. Called [facility] and asked if they would be able to transport this pt. Samuel will call be back. He will try and and call in a relief cdl a driver.
--- NOTE | 2021-12-06 09:25 | NUR ---
THIS RN IN PTS ROOM DUE TO PT STATING THAT SHE NEEDED THE BEDPAN, BY THE TIME THIS RN GOT IN ROOM PT WAS INCONTINENT OF URINE- PT THEN STATED THAT SHE THINKS SHE NEEDS TO HAVE A BM- THIS RN PUT PT ON BEDPAN. PT ABLE TO HAVE MEDIUM BM. PT REPORTS THAT SHE FEELS LIKE MORE IS IN THERE- THIS RN ENCOURAGED PT TO WORK WITH O.T. SO SHE CAN GET HER BOWELS MOVING. THIS RN SET PT UP FOR BREAKFAST. PT DID NOT LIKE WHAT WAS ON HER TRAY AND WAS ASKING FOR MORE FOOD THAT WAS NOT ON HER DIET. PT ATTEMPTED TO PUSH TRAY AWAY AND ENDED UP PUSHING TRAY TO THE FLOOR- PT STATES THAT SHE IS REFUSING TO EAT FOR THE REST OF THE DAY NOW BECAUSE SHE ISN'T GETTING WHAT SHE WANTS. CALL LIGHT JEANINEIN REACH AND HOUSEKEEPING IN ROOM TO CLEAN ROOM.
--- NOTE | 2021-12-06 10:00 | NUR ---
PER REPORT FROM TANIA Walker THAT PT WANTS HER CPAP ON- PT REFUSING TO WEAR NASAL CANNULA.
--- NOTE | 2021-12-06 10:40 | NUR ---
Called [facility] and asked if they had forgotten me. He states he is awaiting to hear if anyone will come in and transport this pt. He will call when he hears.
--- NOTE | 2021-12-06 11:00 | NUR ---
this rn in room to transfer phone call from pts son. this rn took pt off cpap and put on nasal cannula. pt then wanted cpap back on. call light within reach. pt okay with information to going to son.
--- NOTE | 2021-12-06 12:00 | NUR ---
Received call from Samuel. He states he is Pr[facility] and will take pt when he arrives in [place]. Plan to transport at [id number]. Charge nurse and Dr. Morrison notified. Called Mary at [facility]. She states no need for covid swab they will swab when she arrives. Let her know I will send gowns with pt and she states no need, they have extra clothing and gowns to supply pt.
--- NOTE | 2021-12-06 12:45 | NUR ---
THIS RN CALLED REPORT TO NOAH AT [facility]. ALL QUESTIONS ANSWERED AT THIS TIME
[2021-12-06] MEDS ORDERED: ELIQUIS5 MG PO (12:53)
[2021-12-06] MEDS ORDERED: METOPROLOL SUC100 MG PO (12:54)
[2021-12-06] MEDS ORDERED: LOSARTAN POTASS50 MG PO (12:56)
[2021-12-06] MEDS ORDERED: OXYCODONE-ACET1 EAC1 PO (12:57)
--- NOTE | 2021-12-06 13:00 | NUR ---
paper work completed, faxed [facility], orders, RX to Mary. Original placed in envelope and taken to room. Staff helping pt to dress. She denies needs.
--- NOTE | 2021-12-06 15:50 | NUR ---
REceived call from Isabella at [facility] stating pt is refusing covid swab and stated I had told her she could smoke there. Let them know pt was not told this and I am pretty sure she had told the Dr. she had stopped smoking. She is also stating her son is on his way to take her home. Let them know there is nothing I can do. I will call Nancy her CM at [facility]. Attempted to call Nancy and unable to contact. Was able to reach Gamal her granddaughter. She states her dad is not picking Shelby up. They recently had a conversationg and both feel pt need to stay in a facility. She will call her dad and the facility. Son is Benson Galdamez [phone]. Granddaughter Gamal Galdamez [phone].
== END 2021-12-06 13:35 | disposition home or self-care (01) | DRG 65 ==
LOC: ED 12:15 → MS 16:01
PROVIDERS: ADMIT Internal Medicine; ATTEND Internal Medicine
DX: I63.531 Cerebral infarction due to unspecified occlusion or stenosis of right posterior cerebral artery (principal); Z68.43 Body mass index [BMI] 50.0-59.9, adult; I69.354 Hemiplegia and hemiparesis following cerebral infarction affecting left non-dominant side; E11.8 Type 2 diabetes mellitus with unspecified complications; Z79.4 Long term (current) use of insulin; E78.5 Hyperlipidemia, unspecified; I10 Essential (primary) hypertension; E66.01 Morbid (severe) obesity due to excess calories; G47.33 Obstructive sleep apnea (adult) (pediatric); E78.1 Pure hyperglyceridemia; J44.9 Chronic obstructive pulmonary disease, unspecified; J45.909 Unspecified asthma, uncomplicated; I48.0 Paroxysmal atrial fibrillation; Z90.710 Acquired absence of both cervix and uterus; Z96.0 Presence of urogenital implants; Z90.49 Acquired absence of other specified parts of digestive tract; F17.200 Nicotine dependence, unspecified, uncomplicated; F32.A Depression, unspecified; Z88.1 Allergy status to other antibiotic agents; Z88.6 Allergy status to analgesic agent; M16.12 Unilateral primary osteoarthritis, left hip; Z20.822 Contact with and (suspected) exposure to COVID-19
CPT/HCPCS: 36415; 70450; 73502; 80048; 80061; 81001; 83036; 85025; 92610; 93306; 93880; 94760; 96374; 97163; 97530; 99285-25; A9270; C9803; J1650; J2405; U0003

== ENCOUNTER 2022-09-24 02:04 | Emergency (ER) | payer OTHER ==
[~2022-09-24] VITALS: Ht 162.6 cm; Wt 118.5 kg
[~2022-09-24 02:04] MED LIST changes: +ELIQUIS5 MG PO; +METOPROLOL SUC100 MG PO; +OXYCODONE-ACET1 EAC1 PO; +TYLENOL325 MG PO
[2022-09-24] MEDS ORDERED: ONDANSETRON ODT8 MG PO (05:23)
[2022-09-24] MEDS ORDERED: CEPHALEXIN500 M1 PO (05:23)
== END 2022-09-24 07:07 | disposition home or self-care (01) ==
LOC: ED 02:04
DX: N39.0 Urinary tract infection, site not specified (principal); R10.84 Generalized abdominal pain; I10 Essential (primary) hypertension; J44.9 Chronic obstructive pulmonary disease, unspecified; F17.200 Nicotine dependence, unspecified, uncomplicated; Z88.1 Allergy status to other antibiotic agents; Z88.8 Allergy status to other drugs, medicaments and biological substances; Z88.5 Allergy status to narcotic agent; Z79.899 Other long term (current) drug therapy
CPT/HCPCS: 36415; 74177; 80053; 81001; 83690; 85025; 87502; 96374; 96375; 99284-25; A9270; J1170; J2405; J7030

== ENCOUNTER 2022-10-29 05:38 | Emergency (ER) | payer OTHER ==
[~2022-10-29] VITALS: Ht 162.6 cm; Wt 127.0 kg
[~2022-10-29 05:38] MED LIST changes: +CEPHALEXIN500 M1 PO; +DICLOXACILLIN250 MG PO
[2022-10-29] MEDS ORDERED: ONDANSETRON ODT8 MG PO (06:44)
[2022-10-29] MEDS ORDERED: CEPHALEXIN500 M1 PO (06:44)
== END 2022-10-29 07:55 | disposition home or self-care (01) ==
LOC: ED 05:38
PROC: 0T9B70Z Drainage of Bladder with Drainage Device, Via Natural or Artificial Opening (ICD-10-PCS; principal; 2022-10-29)
DX: M79.3 Panniculitis, unspecified (principal); B37.2 Candidiasis of skin and nail; L30.4 Erythema intertrigo; N39.0 Urinary tract infection, site not specified; R11.2 Nausea with vomiting, unspecified; F15.10 Other stimulant abuse, uncomplicated; G89.29 Other chronic pain; M25.552 Pain in left hip; I10 Essential (primary) hypertension; J44.9 Chronic obstructive pulmonary disease, unspecified; F17.200 Nicotine dependence, unspecified, uncomplicated; Z88.1 Allergy status to other antibiotic agents; Z88.5 Allergy status to narcotic agent; Z79.899 Other long term (current) drug therapy
CPT/HCPCS: 36415; 51701; 80053; 81001; 83690; 85025; 99284-25; A9270; J2405; J7030

== ENCOUNTER 2024-05-07 14:25 | Emergency (ER) | payer OTHER, MEDICARE ==
[~2024-05-07] VITALS: Ht 162.6 cm; Wt 126.5 kg
[~2024-05-07 14:25] MED LIST changes: +AMOX TR-K CLV1 EAC1 PO; +ANORO ELLIPTA1 EACH INH; +CLOTRIMAZOLE45 G1 TOP; +DIFLUCAN200 MG PO; +HYDROCODON-ACE1 EA11 PO; +KLAYESTA15 GM TOP; +METOPROLOL TART25 MG PO; +OMEPRAZOLE40 MG PO; +VAZALORE81 MG PO
[2024-05-07] MEDS ORDERED: ACETAMINOPHEN 1,000 MG/100 ML VIAL IV ONE (15:45)
[2024-05-07 15:57] LABS: BASOPHILS 1.2 % (0-2); EOSINOPHILS 1.9 % (0-6); HEMATOCRIT 37.9 % (35.0-50.0); HEMOGLOBIN 12.4 g/dL (12.0-18.0); LYMPHOCYTES 22.1 % (24-44); MCH 27.8 (27-36); MCHC 32.6 g/dl (30-36); MCV 85.2 fl (81-99); MONOCYTES 4.3 % (0-12); NEUTROPHILS 70.5 % (39-80); PLATELET COUNT 369 K/uL (140-440); RBC 4.45 M/ul (4.3-5.7); RDW 15.4 (10.5-15.0)
[2024-05-07 16:21] LABS: ALBUMIN 2.8 g/dL (3.4-5.0); ALBUMIN/GLOBULIN RATIO 0.62 (1.1-2.4); ANION GAP 8.8 (7-21); BILIRUBIN, TOTAL 0.3 ng/dL (0.2-1.0); BUN/CREATININE RATIO 8.79 (6.0-28.6); CALCIUM 9.1 mg/dL (8.5-10.1); CREATININE, SERUM 0.91 mg/dL (0.55-1.02); POTASSIUM 3.8 mmol/L (3.5-5.1); PROTEIN, TOTAL 7.3 g/dL (6.4-8.2)
[2024-05-07 18:45] VITALS: BP 164/116
[2024-05-07] MEDS ORDERED: LIDOCAINE HCL 4% 1 EACH PATCH TD ONE (18:45)
[2024-05-07] MEDS ORDERED: LIDOCAINE PATCH REMOVAL 1 EA TD SCH (21:00)
--- NOTE | 2024-05-09 10:44 | EKG ---
[facility] [address] [place] [address] Signed Sinus rhythm with marked sinus arrhythmia with occasional premature ventricular complexes Low voltage QRS Borderline ECG When compared with ECG of 04-MAY-2024 19:43, premature ventricular complexes are now present Confirmed by Nancy Medley MD ([id number]) on 05/09/2024 10:44:01 AM Electronically Signed By: NANCY MEDLEY 05/09/24 1044 PATIENT NAME: CHADCHASTITYMAL NOE Electrocardiogram DATE OF : 58 PHYSICIAN: NANCY MEDLEY REPORT #: [id number] REPORT IS CONFIDENTIAL AND NOT TO BE RELEASED WITHOUT AUTHORIZATION
== END 2024-05-07 18:45 | disposition home or self-care (01) ==
LOC: ED 14:25
PROVIDERS: Emergency Medicine
DX: S06.0XAA Concussion with loss of consciousness status unknown, initial encounter (principal); R07.89 Other chest pain; I10 Essential (primary) hypertension; J44.89 Other specified chronic obstructive pulmonary disease; F17.200 Nicotine dependence, unspecified, uncomplicated; V49.9XXA Car occupant (driver) (passenger) injured in unspecified traffic accident, initial encounter; Z79.899 Other long term (current) drug therapy; Z79.82 Long term (current) use of aspirin; Z88.6 Allergy status to analgesic agent; Z88.5 Allergy status to narcotic agent; Z88.1 Allergy status to other antibiotic agents
CPT/HCPCS: 36415; 71045; 71260; 80053; 83880; 84484; 85025; 85379; 93005; 93010; A9270; J0131

== ENCOUNTER 2024-05-27 20:47 | Inpatient (IN) | payer MEDICARE, OTHER ==
[~2024-05-27] VITALS: Ht 162.6 cm; Wt 123.6 kg
--- OUTSIDE RECORDS SUMMARY | ~2024-05-27 | XMS | Continuity of Care Document ---
Demographics + + + | Address | [address] | | | [place] [address] | + + + | Preferred Language | Unknown | + + + | Marital Status | Never | + + + | Islam Affiliation | Unknown | + + + | Race | White | + + + | Ethnic Group | Unknown | + + + Author + + + | Author | [facility] | + + + | Organization | [facility] | + + + | Address | [address] | | | [place] [address] | + + + | Phone | | + + + Care Team Providers + + + + | Care Nuclear Control Room Operator Name | Role | Phone | + + + + Unavailable | Unavailable | + + + + Unavailable | Unavailable | + + + + Allergies No information. Encounters No information. Functional Status No information. Immunizations No information. Medications + + + + | date | description | facility | + + + + | 2024-05-08 00:00 | lidocaine 0.05 MG/MG | [facility] | | | Medicated Patch [Lidoderm] | | + + + + | 2024-05-08 00:00 | acetaminophen 325 MG / | [facility] | | | oxycodone hydrochloride 5 | | | | MG Oral Tablet [Percocet] | | + + + + | 2024-05-08 00:00 | Percocet 5-325 MG Oral | [facility] | | | Tablet | | + + + + | 2024-05-08 00:00 | fluconazole 200 MG Oral | [facility] | | | Tablet | | + + + + | 2024-03-30 00:00 | omeprazole 40 MG Delayed | [facility] | | | Release Oral Capsule | | + + + + | 2024-05-08 00:00 | Antifungal (Clotrimazole) | [facility] | | | 1% External Cream | | + + + + | 2024-05-05 00:00 | Cephalexin 500 MG Oral | [facility] | | | Capsule | | + + + + | 2024-05-08 00:00 | Fluconazole 200 MG Oral | [facility] | | | Tablet | | + + + + | 2024-05-05 00:00 | cephalexin 500 MG Oral | [facility] | | | Capsule | | + + + + | 2024-05-08 00:00 | Lidoderm 5% External Patch | [facility] | | | | | + + + + | 2024-03-30 00:00 | Omeprazole 40 MG Oral | [facility] | | | Capsule, delayed-release | | + + + + | 2024-05-08 00:00 | Metoprolol Tartrate 25 MG | [facility] | | | Oral Tablet | | + + + + | 2024-03-30 00:00 | Cyclobenzaprine HCl 5 MG | [facility] | | | Oral Tablet | | + + + + | 2024-03-30 00:00 | cyclobenzaprine | [facility] | | | hydrochloride 5 MG Oral | | | | Tablet | | + + + + | 2024-05-08 00:00 | metoprolol tartrate 25 MG | [facility] | | | Oral Tablet | | + + + + Problems No information. Procedures No information. Results/Labs No information. Social History + + + + | date | description | facility | + + + + | 2024-05-11 00:00 | Unknown if ever smoked | [facility] | + + + + Vital Signs + + + +---------+ | date | measurement | value | units | + + + +---------+ | 2024-05-08 00:00 | BMI | 51.5 | 1 | + + + +---------+ | 2024-05-08 00:00 | BP_diastolic | 106 | mmHg | + + + +---------+ | 2024-05-08 00:00 | BP_systolic | 160 | mmHg | + + + +---------+ | 2024-05-08 00:00 | BP_systolic | 184 | mmHg | + + + +---------+ | 2024-05-08 00:00 | BSA | 2.3 | 1 | + + + +---------+ | 2024-05-08 00:00 | heart_rate | 90 | /min | + + + +---------+ | 2024-05-08 00:00 | height_metric | 162.56 | cm | + + + +---------+ | 2024-05-08 00:00 | height_standard | 64 | in | + + + +---------+ | 2024-05-08 00:00 | o2_saturation | 96 | % | + + + +---------+ | 2024-05-08 00:00 | weight_metric | 136.08 | kg | + + + +---------+ | 2024-05-08 00:00 | weight_standard | 300 | lb | + + + +---------+"
--- OUTSIDE RECORDS SUMMARY | ~2024-05-27 | XMS | Continuity of Care Document ---
Demographics + + + | Address | [address] | | | [place] [address] | + + + | Preferred Language | Unknown | + + + | Marital Status | Never | + + + | Synagogue Affiliation | Unknown | + + + | Race | White | + + + | Ethnic Group | Unknown | + + + Author + + + | Author | [facility] | + + + | Organization | [facility] | + + + | Address | [address] | | | [place] [address] | + + + | Phone | | + + + Care Team Providers + + + + | Care Jboss Architect Name | [...] 00:00 | cephalexin 500 MG Oral | [facility] | | | Capsule | | + + + + | 2024-05-08 00:00 | Lidoderm 5% External Patch | [facility] | | | | | + + + + | 2024-03-30 00:00 | Omeprazole 40 MG Oral | [facility] | | | Capsule, delayed-release | | + + + + | 2024-05-08 00:00 | Metoprolol Tartrate 25 MG | [facility] | | | Oral Tablet | | + + + + | 2024-03-30 00:00 | Cyclobenzaprine HCl 5 MG | [facility] | | | Oral Tablet | | + + + + | 2024-03-30 00:00 | cyclobenzaprine | [facility] | | | hydrochloride 5 MG Oral | | | | Tablet | | + + + + | 2024-05-08 00:00 | metoprolol tartrate 25 MG | [facility] | | | Oral Tablet | | + + + + Problems No information. Procedures No information. Results/Labs No information. Social History + + + + | date | description | facility | + + + + | 2024-05-11 00:00 | Unknown if ever smoked | [facility] | + + + + [...]
[2024-05-27] MEDS ORDERED: CEFTRIAXONE/SODIUM CHLORIDE 2 GM/100 ML PIGGYBACK IV ONE (21:00)
[2024-05-27] MEDS ORDERED: DAPTOmycin 500 MG/10 ML VIAL IV ONE (21:00)
[2024-05-27] MEDS ORDERED: SODIUM CHLORIDE 0.9% 1,000 ML IV PRN (21:00)
[2024-05-27] MEDS ORDERED: OXYCODONE-ACET1 EAC1 PO (21:02)
[2024-05-27] MEDS ORDERED: NYAMYC15 GM TOP (21:02)
[2024-05-27] MEDS ORDERED: VENTOLIN HFA18 GM INH (21:02)
[2024-05-27 21:07] LABS: BASOPHILS 0.3 % (0-2); HEMATOCRIT 39.1 % (35.0-50.0); LYMPHOCYTES 6.4 % (24-44); MCH 27.8 (27-36); MCHC 33.3 g/dl (30-36); MCV 83.6 fl (81-99); MONOCYTES 3.4 % (0-12); NEUTROPHILS 89.9 % (39-80); PLATELET COUNT 302 K/uL (140-440); RBC 4.67 M/ul (4.3-5.7); RDW 15.8 (10.5-15.0)
[2024-05-27 21:14] LABS: BILIRUBIN, URINE NEGATIVE (negative); BLOOD/HGB, URINE MODERATE (Negative); KETONE, URINE NEGATIVE (Negative); LEUK ESTERASE, URINE NEGATIVE (negative); NITRITE, URINE NEGATIVE (negative)
[2024-05-27] MEDS ORDERED: ACETAMINOPHEN 500 MG TAB PO ONE (21:15)
[2024-05-27 21:20] LABS: INR 1.09 (0.80-1.30); PARTIAL THROMBOPLASTIN TIME 36.6 Sec (22.9-41.3); PROTIME 13.4 Sec (11.2-14.2)
[2024-05-27 21:22] LABS: BACTERIA, URINE RARE /hpf (negative); CASTS, URINE NONE SEEN \\lpf; CRYSTALS, URINE NONE SEEN (0-1+); EPITHELIAL CELLS, URINE SQUAMOUS 2+ /lpf (0-1+); WHITE BLOOD CELLS, URINE 0-1 /HPF (0-5)
[2024-05-27 21:23] LABS: ALBUMIN/GLOBULIN RATIO 0.59 (1.1-2.4); BILIRUBIN, TOTAL 0.4 ng/dL (0.2-1.0); BUN/CREATININE RATIO 6.66 (6.0-28.6); CALCIUM 8.8 mg/dL (8.5-10.1); CREATININE, SERUM 0.9 mg/dL (0.55-1.02); PROTEIN, TOTAL 8.1 g/dL (6.4-8.2)
[2024-05-27 21:23] LABS: COLLECTION TYPE, URINE CLEAN CATCH; REFLEX CULTURE, URINE No (No)
[2024-05-27 21:26] LABS: LACTIC ACID, BLOOD 1.3 mmol/L (0.4-2.0)
[2024-05-27] MEDS ORDERED: ondansetron HCL 4 MG/2 ML VIAL IV ONE (21:30)
[2024-05-27] MEDS ORDERED: FAMOTIDINE 20 MG/ 2 ML VIAL IV ONE (21:30)
[2024-05-27 21:32] LABS: TSH, 3RD GENERATION 0.719 uIU/mL (0.358-3.740)
[2024-05-27] MEDS ORDERED: HYDROmorphone HCL 1 MG/ML SYR IV PRN ×2 (22:15→22:30)
[2024-05-27] MEDS ORDERED: LACTATED RINGER'S 1,000 ML IV SCH (22:30)
[2024-05-27] MEDS ORDERED: ACETAMINOPHEN 325 MG TAB PO PRN (22:30)
[2024-05-27] MEDS ORDERED: ondansetron HCL 4 MG/2 ML VIAL IV PRN (22:30)
[2024-05-27] MEDS ORDERED: LACTATED RINGER'S 1,000 ML IV ONE (22:30)
[2024-05-27 23:26] VITALS: BP 164/101
[2024-05-27] MEDS ORDERED: NICOTINE 21 MG/24 HR 1 EA TDSY TD SCH (23:45)
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
[2024-05-28] VITALS (9 sets, daily range): BP systolic 106–149; BP diastolic 61–93
--- NOTE | 2024-05-28 00:03 | NUR ---
PATIENT TO THE FLOOR BY THIS RN. PATIENT TRANSFERRED FROM STRETCHER TO BED BY STAFF. CPOX IN PLACE. TELE IN PLACE. IV FLUSHES WNL. NEW BAG IV FLUID INFUSING PER ORDER. DOUBLE RN SKIN ASSESSMENT COMPLETE BY THIS RN AND HOTSHOT SUPERINTENDENT. PUREWICK IN PLACE AFTER PERICARE PROVIDED FOR INCONTINENCE. PATIENT REPORTS 8/10 HEADACHE PAIN. PRN PAIN MEDICATION ADMINISTERED. PATIENT ON 5L NC, BUT APPEARS TO BE BREATHING THROUGH HER MOUTH. PATIENT O2 SAT DROPS TO 80s OCCASSIONALLY. THIS RN PLACED 5L OXYMASK ON PATIENT. PATIENT O2 REMAINS IN 90s ON 5L OXYMASK AT THIS TIME. PATIENT DENIES FURTHER NEEDS. BED ALARM ON FOR SAFETY. CALL LIGHT IN REACH. PATIENT REPORTS BEING HOT. 2 ICE PACK PROVIDED. PATIENT REQUESTED ONE TO BE PLACED BEHINS NECK. ICE PACK PLACED BEHIND NECK WITH LINEN BARRIER IN PLACE. PATIENT REFUSED THE NEED FOR COLD WASH CLOTH ON HER HEAD AT THIS TIME.
--- NOTE | 2024-05-28 00:33 | NUR ---
CALL LIGHT ANSWERED. PATIENT REPORTS HAVING A HEADACHE. THIS RN PLACED NICOTINE PATCH ON PATIENT LEFT SHOULDER. FRESH COFFEE PROVIDED BECAUSE PATIENT STATES DRINKING 6 BOTTLES OF MOUNTAIN DEW DAILY, HOPING TO HELP HER HEADACHE. NO FURTHER NEEDS. CALL LIGHT IN REACH. BED ALARM ON FOR SAFETY.
--- NOTE | 2024-05-28 02:28 | NUR ---
PATIENT RESTING IN BED WITH EYES CLOSED. RESPIRATIONS EVEN AND UNLABORED. O2 94% ON 5L OXYMASK. CALL LIGHT IN REACH.
--- NOTE | 2024-05-28 02:56 | NUR ---
PATIENT REPORTS NEEDING TO HAVE BM. PATIENT UP WITH 2P SBA AND FWW TO BSC IN BATHROOM. PATIENT HAD FLATUS BUT NO BM. PATIENT VOIDED YELLOW URINE. PATIENT BACK TO BED. CPOX IN PLACE. PATIENT HAS NO FURTHER NEEDS AT THIS TIME. CALL LIGHT IN REACH. PATIENT SWITCHED FROM OXYMASK BACK TO 5L NC PER REQUEST.
--- NOTE | 2024-05-28 03:09 | NUR ---
CPOX ALARMING. PATIENT O2 83% ON 5L NC AND APPEARS TO BE BREATHING THROUGH HER MOUTH. THIS RN SWITCHED PATIENT BACK TO 5L OXYMASK, O2 SAT 94%. PATIENT HAS NO FURTHER NEEDS. CALL LIGHT IN REACH.
--- NOTE | 2024-05-28 04:33 | NUR ---
CALL LIGHT ANSWERED. [facility]. PAVER OPERATOR AND RN ASSISTED PT WITH FWW TO [facility]. PT VOIDED. PT ASSISTED BACK TO BED. VITALS AND I&O OBTAINED AND DOCUMENTED. PT STATES NO OTHER NEEDS AT THIS TIME. CALL LIGHT WITHIN REACH.
[2024-05-28 05:33] LABS: HEMATOCRIT 35.9 % (35.0-50.0); RDW 16.1 (10.5-15.0)
[2024-05-28 05:35] LABS: BASOPHILS 0.5 % (0-2); EOSINOPHILS 0.1 % (0-6); HEMOGLOBIN 11.5 g/dL (12.0-18.0); LYMPHOCYTES 10.8 % (24-44); MCH 27.1 (27-36); MCHC 31.9 g/dl (30-36); MCV 84.8 fl (81-99); MONOCYTES 4.9 % (0-12); NEUTROPHILS 83.7 % (39-80); PLATELET COUNT 271 K/uL (140-440); RBC 4.23 M/ul (4.3-5.7)
[2024-05-28 05:49] LABS: ALBUMIN 2.3 g/dL (3.4-5.0); ALBUMIN/GLOBULIN RATIO 0.51 (1.1-2.4); ANION GAP 10.8 (7-21); BILIRUBIN, TOTAL 0.4 ng/dL (0.2-1.0); BUN/CREATININE RATIO 8.43 (6.0-28.6); CALCIUM 8.2 mg/dL (8.5-10.1); CREATININE, SERUM 0.83 mg/dL (0.55-1.02); MAGNESIUM 1.5 mg/dL (1.8-2.4); POTASSIUM 3.8 mmol/L (3.5-5.1); PROTEIN, TOTAL 6.8 g/dL (6.4-8.2)
--- NOTE | 2024-05-28 06:10 | NUR ---
PATIENT RESTING IN BED. DENIES NEEDS AT THIS TIME. CALL LIGHT IN REACH.
--- NOTE | 2024-05-28 07:15 | NUR ---
RECEIVED REPORT FROM HERMINIO CASTILLO. PT RESTING IN BED WITH EYES CLOSED, 5L O2 VIA NC IN PLACE. CALL LIGHT WITHIN REACH.
[2024-05-28] MEDS ORDERED: MICONAZOLE NITRATE 1 EA BTL TOP SCH (09:00)
[2024-05-28] MEDS ORDERED: MAGNESIUM SULFATE 2 GM/50 ML BAG IV ONE (09:15)
[2024-05-28] MEDS ORDERED: ANORO ELLIPTA1 EACH INH (09:22)
[2024-05-28] MEDS ORDERED: ALBUTEROL SULFATE 0.083% 3 ML VIAL ONE (10:06)
[2024-05-28] MEDS ORDERED: ALBUTEROL SULFATE 0.083% 3 ML VIAL INH PRN (10:15)
--- NOTE | 2024-05-28 10:15 | NUR ---
PT AWAKE IN BED, TAKES PO MEDICATIONS W/O DIFFICULTY. PT STATES SHE HAS AN 8/10 HEADACHE, TYLENOL GIVEN PER PT REQUEST. PT REFUSES DESENEX [facility] AREAMD NOTIFIED, DESENEX APPLIED TO UNDER BREAST. PT STATES NO NEEDS AT THIS TIME, CALL LIGHT WITHIN REACH.
[2024-05-28] MEDS ORDERED: CLOTRIMAZOLE45 G1 TOP (10:29)
[2024-05-28] MEDS ORDERED: TYLENOL EXTRA500 MG PO (10:29)
--- NOTE | 2024-05-28 10:30 | NUR ---
MED REC COMPLETE
--- NOTE | 2024-05-28 10:31 | NUR ---
RA TRIAL 87% ON RA. NEEDS NEBULIZER MACHINE AND A CPAP MACHINE AT HOME.
--- NOTE | 2024-05-28 10:35 | NUR ---
PT UP TO CHAIR AWAKE, DENIES PAIN, NAUSEA, OR SOB. TELE REMAINS IN PLACE. L HAND EDEMA DECREASED TO TRACE AMOUNT. PT NOT WEARING SCDs D/T WALKING AROUND. PT CONTINUES TO HAVE MINIMAL DISTENTION AND TENDERNESS TO ABDOMEN, BOWEL TONES ACIVE. PT EXPRESSES ANXIETY SURROUNDING BILLS FOR HOSPITAL STAY AND PRESCRIPTIONS. CASE MANAGEMENT CONTACTED AND UPDATED. PT STATES NO FURTHER NEEDS AT THIS TIME. CALL LIGHT WITHIN REACH.
[2024-05-28] MEDS ORDERED: SODIUM CHLORIDE 0.9% 1,000 ML IV SCH (12:15)
[2024-05-28] MEDS ORDERED: ACETAMINOPHEN 325 MG TAB PO PRN (12:15)
[2024-05-28] MEDS ORDERED: ondansetron HCL 4 MG/2 ML VIAL IV PRN (12:15)
[2024-05-28] MEDS ORDERED: PROCHLORPERAZINE EDISYLATE 10 MG/2 ML VIAL IV PRN (12:15)
[2024-05-28] MEDS ORDERED: PANTOPRAZOLE SODIUM 40 MG TABEC PO SCH (12:16)
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
--- NOTE | 2024-05-28 13:30 | NUR ---
PT UP TO RESTROOM WITH FWW AND 1PA, PT UP TO CHAIR. O2 SATURATION <90%, O2 TITRATED TO 4L VIA NC, SATURATION INCREASES TO >92%. RT UPDATED. CALL LIGHT WITHIN REACH.
--- NOTE | 2024-05-28 13:37 | NUR ---
PT NOT AVAILABLE FOR VISIT. PROVIDED PRAYER.
--- NOTE | 2024-05-28 15:45 | NUR ---
PT UP TO CHAIR, STATES SHE NEEDS TO USE RESTROOM. PT UP TO RESTROOM WITH FWW AND 1PA. PT HAS LARGE BM. PT WIPES SELF, BARRIER CREAM APPLIED TO BUTTOCKS FOR BLANCHABLE REDNESS. PT STATES SHE WOULD LIKE TO GO BACK TO THE BED. PT BACK TO BED, 3L O2 IN PLACE, CPOX IN PLACE, O2 SATURATION >93%. SILVER CLOTH PLACED IN PANNUS AREA FOR MOISTURE. PT STATES NO FURTHER NEEDS AT THIS TIME, CALL LIGHT WITHIN REACH.
[2024-05-28] MEDS ORDERED: ALBUTEROL/IPRATROPIUM 3 ML NEB INH SCH (16:00)
--- NOTE | 2024-05-28 18:10 | NUR ---
PATIENT IN BED AT THIS TIME. 2 CNAS IN ROOM TO BOOST PATIENT UP IN BED. CALL LIGHT WITHIN REACH, NO FURTHER NEEDS AT THIS TIME.
--- NOTE | 2024-05-28 19:36 | NUR ---
REPORT RECIEVED FROM DAY SHIFT RN. PATIENT RESTING IN BED WITH VISITOR IN ROOM. PATIENT HAS NO CURRENT NEEDS. CALL LIGHT IN REACH.
--- NOTE | 2024-05-28 20:14 | NUR ---
SUPERVISOR CUSTOMER SERVICES OBTAINED VITALS AND OUTPUT. NO NEW INTAKE AT THIS TIME. PT STATES NO NEEDS AT THIS TIME. CALL LIGHT WITHIN REACH.
--- NOTE | 2024-05-28 20:54 | NUR ---
SCHEDULED IV ABX INFUSING PER ORDER. PATIENT REPORTING 9/10 SHOULDER AND HEADACHE PAIN. NO AVAILABLE PAIN MEDICATION TO GIVE AT THIS TIME. ICE PACK PLACED TO LEFT SHOLDER. NICOTINE PATCH REMOVED BY THIS RN. IV FLUSHED WNL. ASSESSMENT COMPLETE. PATIENT HAS NO FURTHER NEEDS AT THIS TIME. CALL LIGHT IN REACH.
[2024-05-28] MEDS ORDERED: DAPTOmycin 500 MG/10 ML VIAL IV SCH (21:00)
[2024-05-28] MEDS ORDERED: CEFTRIAXONE/SODIUM CHLORIDE 2 GM/100 ML PIGGYBACK IV SCH (21:00)
--- NOTE | 2024-05-28 21:28 | NUR ---
CALL LIGHT ANSWERED. PATIENT REQUESTING TO SIT IN CHAIR. THIS RN ASSISTED PATIENT TO CHAIR WITH MINIMAL SBA AND FWW. WARM BLANKET PROVIDED. CALL LIGHT IN REACH.
--- NOTE | 2024-05-28 21:37 | EKG ---
[facility] [address] [place] [address] Signed Sinus tachycardia Nonspecific ST abnormality Abnormal ECG When compared with ECG of 07-MAY-2024 15:50, premature ventricular complexes are no longer present Confirmed by Maura Reyna MD () on 05/28/2024 9:37:07 PM Electronically Signed By: MAURA REYNA MD 05/28/24 2137 PATIENT NAME: CHADCHASTITYCarin NOE Electrocardiogram DATE OF : 58 PHYSICIAN: MAURA REYNA MD REPORT #: [id number] REPORT IS CONFIDENTIAL AND NOT TO BE RELEASED WITHOUT AUTHORIZATION
--- NOTE | 2024-05-28 22:20 | NUR ---
PT REQUESTING SHOWER. EXPERIMENTAL ELECTRONICS DEVELOPER AND PRIMARY RN ASSISTED PT WITH FWW TO SHOWER CHAIR. PT GIVEN TOWELS AND SOAP. PT ABLE TO SHOWER INDEPENDENTLY IN SHOWER CHAIR. EXPERIMENTAL ELECTRONICS DEVELOPER AND RN CHANGED BED LINENS. PT COMPLETED SHOWER AND WAS ASSISTED WITH DRYING OFF AND GETTING BACK TO BED. RN APPLIED POWDER UNDER BREASTS AND PANNUS AREAS. PT GIVEN CLEAN GOWN AND IS BACK IN BED. CPOX RECONNECTED. PT GIVEN PUDDING, APPLE SAUCE AND LUANN STU UPON REQUEST. EXPERIMENTAL ELECTRONICS DEVELOPER REFILLED PT ICE WATER. PT STATES NO FURTHER NEEDS AT THIS TIME. CALL LIGHT WITHIN REACH.
[2024-05-28] MEDS ORDERED: OXYCODONE HCL 5 MG TAB PO PRN (23:00)
--- NOTE | 2024-05-28 23:35 | NUR ---
PT CALLED, REQUESTED PAIN MEDICATION. 10/10 ABD PAIN, WELL 9/10 LEFT SHOULDER PAIN. PRN PO PAIN MEDICATION GIVEN. IV FLUIDS INFUSING PER ORDER.
[2024-05-29] VITALS (8 sets, daily range): BP systolic 121–162; BP diastolic 55–85
--- NOTE | 2024-05-29 00:12 | NUR ---
PATIENT RESTING IN BED ON BACK WITH EYES CLOSED. PATIENT 96% WITH 3L NC IN PLACE. CALL LIGHT IN REACH.
--- NOTE | 2024-05-29 00:56 | NUR ---
CALL LIGHT ANSWERED. PT WANTED AN ICE PACK AND FRESH ICE WATER. EXHIBITION SPECIALIST BROUGHT ITEMS AND PT STATED THAT SHE FELT LIKE SHE WAS GOING TO THROW UP. EXHIBITION SPECIALIST GAVE PT AN EMESIS BAG AND NOTIFED RN. PT STATED NO OTHER NEEDS AT THIS TIME. CALL LIGHT WITHIN REACH.
--- NOTE | 2024-05-29 01:31 | NUR ---
CALL LIGHT ANSWERED. PATIENT UP TO BATHROOM WITH 1P SBA AND FWW TO VOID. PATIENT REQUESTING TO SIT IN CHAIR. PATIENT REPORTS NAUSEA. PRN NAUSEA MEDICATION ADMINISTERED. PATIENT HAS NO FURTHER NEEDS AT THIS TIME. CALL LIGHT IN REACH.
--- NOTE | 2024-05-29 03:34 | NUR ---
PRN PAIN MEDICATION ADMINISTERED PER PATIENT REQUEST. PATIENT REPORTS 9/10 HEADACHE PAIN. WARM BLANKET AND LUANN STU PROVIDED. PATIENT DENIES FURTHER NEEDS AT THIS TIME. CALL LIGHT IN REACH.
--- NOTE | 2024-05-29 05:07 | NUR ---
VS AND I&Os OBTAINED AND RECORDED. ASSESSMENT COMPLETE. PATIENT DENIES NEEDS AT THIS TIME. CALL LIGHT IN REACH.
--- NOTE | 2024-05-29 05:17 | NUR ---
CALL LIGHT ANSWERED. PT NEEDED TO USE BATHROOM. FOOD PRESERVATION SCIENTIST AND RN ASSISTED PT WITH FWW TO BATHROOM. PT USED BSC AND VOIDED. PT THEN ASSISTED BACK TO BED. CPOX RECONNECTED. OUTPUT MEASURED. PT STATES NO FURTHER NEEDS AT THIS TIME. CALL LIGHT WITHIN REACH.
[2024-05-29 05:28] LABS: BASOPHILS 0.5 % (0-2); EOSINOPHILS 0.7 % (0-6); HEMATOCRIT 35.1 % (35.0-50.0); HEMOGLOBIN 11.1 g/dL (12.0-18.0); LYMPHOCYTES 10.5 % (24-44); MCHC 31.7 g/dl (30-36); MONOCYTES 6.2 % (0-12); NEUTROPHILS 82.1 % (39-80); PLATELET COUNT 271 K/uL (140-440); RBC 4.13 M/ul (4.3-5.7); RDW 15.8 (10.5-15.0)
[2024-05-29 05:47] LABS: ALBUMIN 2.4 g/dL (3.4-5.0); ALBUMIN/GLOBULIN RATIO 0.52 (1.1-2.4); BILIRUBIN, TOTAL 0.2 ng/dL (0.2-1.0); BUN/CREATININE RATIO 9.33 (6.0-28.6); CALCIUM 8.5 mg/dL (8.5-10.1); CREATININE, SERUM 0.75 mg/dL (0.55-1.02); MAGNESIUM 1.8 mg/dL (1.8-2.4); PHOSPHORUS, INORGANIC 3.3 mg/dL (2.5-4.9)
--- NOTE | 2024-05-29 06:23 | NUR ---
CALL LIGHT ANSWERED. PT NEEDED TO USE BATHROOM. HARD METALS HAND ENGRAVER AND RN ASSISTED PT TO BATHROOM WITH FWW. PT SAT ON COMMODE AND VOIDED. PT ASSISTED BACK TO BED. CPOX RECONNECTED. PT GIVEN WARM BLANKET UPON REQUEST. PT STATES NO FURTHER NEEDS AT THIS TIME. CALL LIGHT WITHIN REACH.
--- NOTE | 2024-05-29 07:12 | NUR ---
UR CLINICAL REVIEW: 2 MN FOR VERSALUS-MEETS INPT CRITERIA MEDICARE INPT 05/28/24 @ 1216 ORDER MATCHES REG NO AUTH REQUIRED PER MEDICARE GUIDELINES DICHARGE TO HOME WHEN STABLE
--- NOTE | 2024-05-29 08:18 | NUR ---
PT UP TO CHAIR EATING BREAKFAST, REQUESTS ADDITIONAL MILK, GIVEN. PT TAKES PO MEDICATIONS W/O DIFFICULTY. PT STATES NO FURTHER NEEDS AT THIS TIME, CALL LIGHT WITHIN REACH.
[2024-05-29] MEDS ORDERED: ENOXAPARIN SODIUM 40 MG/0.4 ML SYR SUB-Q SCH (09:00)
--- NOTE | 2024-05-29 09:30 | NUR ---
PT UP TO CHAIR AWAKE, RT AT THE BEDSIDE GIVING BREATHING TREATMENT. PT STATES PAIN IN SHOULDERS IS 2/10, DENIES NEED FOR PAIN CONTROL MEASURES AT THIS TIME. PT REQUESTS WARM BLANKET, GIVEN. PT TITRATED TO RA, O2 SATURATION >90% PER CPOX. ABDOMEN CONTINUES TO BE TENDER AROUND EXCORIATED AREAS AND REDDENED AREAS. DESENEX POWDER APPLIED UNDER BREASTS AND PANNUS, SILVER CLOTH IN PLACE UNDER PANNUS. PT STATES NO QUESTIONS AT THIS TIME, CALL LIGHT WITHIN REACH.
--- NOTE | 2024-05-29 10:05 | NUR ---
WOUND RN TO BEDSIDE WITH THIS RN TO DO WOUND CONSULT, SEE WOUND RN'S NOTE. PT BACK TO BED FROM CHAIR. O2 SATURATION TO UPPER 80s DURING ACTIVITY, >95% ONCE BACK TO BED. PT PRACTICES I.S. USE AT THIS TIME, ABLE TO GET TO 1300 X4. PT STATES NO FURTHER NEEDS AT THIS TIME, CALL LIGHT WITHIN REACH.
--- NOTE | 2024-05-29 10:39 | NUR ---
Wound consult completed. Pt with cellulitis to lower abd, skin folds moist and odorous. Miconazole powder and interdry sheet applied this morning by primary nurse. Midline abd scab measuring 10.5 x 12 cm superifical. Pt states she frequently has irritation in skin folds especially with excess sweating, this wound has been present for about 2 months, she uses medicated antifungal cream on wound after showering and powder under breasts. Breasts and axilla also examined and moist, redness under breasts improved since admission. Discussed with Dr. Marroquin and primary RN, plan to add oral antifungal, miconazole cream for scab and to continue miconazole powder to skin folds of groin, pannus, breast and axilla. Pt agreeable to plan.
--- NOTE | 2024-05-29 10:40 | NUR ---
Spoke with Shelby. She becomes tearful and states, "I just have to leave." Clarified pt can remain until tomorrow. [facility] [place] between 12m and 10am on Saturday morning. Per Shelby her son has had two suicide attempts and has been suicidal the last few days. She feels she needs to be there by Saturday night in case he discharges Saturday night. Pt states she is feeling better. She will leave ama if needed. Wound care nurse is reviewing and will assess pt. Dr. Marroquin aware of pts concerns. IMM letter completed.
--- NOTE | 2024-05-29 11:10 | NUR ---
VISITED DURING SPIRITUAL CARE ROUNDS. PT APPEARED TO BE SLEEPING. DID NOT DISTURB. PROVIDED PRAYER.
--- NOTE | 2024-05-29 11:14 | NUR ---
PT PLACED ON 1L NC FOR SLEEP D/T O2 SATURATION IN THE 80s WHILE SLEEPING. PT EDUCATION ON OXYGEN USE. PT VERBALIZES UNDERSTANDING. PT STATES NO CURRENT NEEDS, CALL LIGHT WITHIN REACH.
[2024-05-29] MEDS ORDERED: PHARMACY RENAL DOSE ADJUSTMENT 1 DOSE MISC PO SCH (12:00)
--- NOTE | 2024-05-29 12:03 | NUR ---
PT UP TO RESTROOM WITH 1PA AND FWW, BACK TO BED. PT BOOSTED IN BED WITH ASSISTANCE. PT STATES PAIN IS 9/10 IN SHOULDERS. PRN PAIN MEDICATION GIVEN PER PT REQUEST. PT STATES NO FURTHER NEEDS AT THIS TIME. CALL LIGHT WITHIN REACH.
[2024-05-29] MEDS ORDERED: FLUCONAZOLE 200 MG TAB PO ONE (13:30)
--- NOTE | 2024-05-29 16:01 | NUR ---
PATIENT CALLED FOR ASSISTANCE TO BR AND CHAIR. 2PA WITH FWW FOR SAFETY. PATIENT JUST WOKE FROM [place] AND ENDORSES CONFUSION. TEARFUL AND CONTINUES TO APOLOGIZE. PATIENT REORIENTED TO PLACE AND REASON SHES HERE. HERMINIO BEAUCHAMP NOTIFIED NITO AT CHAIRSIDE. FRESH ICE WATER AND WARM BLANKET PROVIDED
--- NOTE | 2024-05-29 16:10 | NUR ---
THIS RN CALLED TO BEDSIDE BY CREDIT CARD ANALYST, PT DISORIENTED TO PLACE AND EVENT, PT TAKES TIME TO IDENTIFY SELF CORRECTLY. VSS. THIS RN CALLS DR. MEDLEY, UPDATES MD ON PATIENT STATUS AND VS. MD STATES TO ORDER CBC, CMP, AND BLOOD CULTURES FOR RIGHT NOW. ORDERS ENTERED, REPEAT BACK PERFORMED. PT RESTING IN CHAIR WITH EYES CLOSED, CALL LIGHT WITHIN REACH.
--- NOTE | 2024-05-29 16:25 | NUR ---
THIS RN TO BEDSIDE, RT AT THE BEDSIDE. RT ON PHONE WITH MD, STATES TO ORDER ABG FOR RT TO DRAW. ORDERS ENTERED, REPEAT BACK PERFORMED.
[2024-05-29 16:43] LABS: BASE EXCESS, BLOOD GAS 2.1 mmol/L (-2-2); HCO3, BLOOD GAS 28.9 mmol/L (22-26); O2 SATURATION, BLOOD GAS 97.1 % (95.0-100.0); PCO2, BLOOD GAS 53.8 mmHg (35-45); PH, BLOOD GAS 7.34 (7.35-7.45); PO2, BLOOD GAS 76 mmHg (80-100); TOTAL CO2, BLOOD GAS 30.6
[2024-05-29 16:45] LABS: HEMOGLOBIN 10.5 g/dL (12.0-18.0)
[2024-05-29 16:48] LABS: BASOPHILS 0.4 % (0-2); HEMATOCRIT 32.6 % (35.0-50.0); LYMPHOCYTES 15.1 % (24-44); MCH 27.4 (27-36); MCHC 32.1 g/dl (30-36); MCV 85.2 fl (81-99); NEUTROPHILS 77.5 % (39-80); PLATELET COUNT 285 K/uL (140-440); RBC 3.83 M/ul (4.3-5.7)
--- NOTE | 2024-05-29 16:53 | NUR ---
UPDATED ON ABG RESULTS, STATES TO CONTINUE MONITORING ORIENTATION. THIS RN SPEAKS WITH RT, PT WEANED TO. 1L O2 VIA NC, RT STATES TO KEEP PT BETWEEN 88-92% O2 SATURATION
[2024-05-29 17:04] LABS: ALBUMIN 2.3 g/dL (3.4-5.0); ALBUMIN/GLOBULIN RATIO 0.55 (1.1-2.4); ANION GAP 8.9 (7-21); BILIRUBIN, TOTAL 0.2 ng/dL (0.2-1.0); BUN/CREATININE RATIO 9.33 (6.0-28.6); CALCIUM 8.7 mg/dL (8.5-10.1); CREATININE, SERUM 0.75 mg/dL (0.55-1.02); POTASSIUM 3.9 mmol/L (3.5-5.1); PROTEIN, TOTAL 6.5 g/dL (6.4-8.2)
--- NOTE | 2024-05-29 17:14 | NUR ---
DR. MEDLEY TO BEDSIDE TO ASSESS PT. MD STATES TO DC OXYCODONE ORDER, STATES TO ONLY GIVE TYLENOL FOR PAIN CONTROL. ORDER DC'D PER .
--- NOTE | 2024-05-29 19:00 | NUR ---
SHIFT REPORT RECEIVED FROM NITO RN, PT AWAKE AND ALERT AT THIS TIME, SITTING ON IN CHAIR, CHAIR ALARM ON, IV PATENT, IVF PER RIGHT AC, SITE INTACT, PT STATES SHE WILL WANT TO GO TO BED SOON, CALL LIGHT IN REACH, LEGS ELEVATED.
--- NOTE | 2024-05-29 19:57 | NUR ---
PT CALLED ASKING TO GO BACK TO BED, RN'S WERE OCCUPIED AT THE MOMENT I TOLD PT LET ME GO GET SOME HELP SHE IS A 2PA WITH HER WALKER. PT DID NOT LIKE THAT BECAUSE SHE DID NOT WANT TO WAIT FOR ME TO GRAB ANOTHER PERSON. PT STARTED TO GET UP BY HERSELF, I TRIED TO TALK HER OUT OF GETTING UP BY HERSELF. PT GOT UP I GAVE PT HER WALKER I DID NOT WANT HER TO FALL. PT WAS PULLING IV PUMP SHE WAS TRYING TO GET INTO BED. I TRIED EXPLAINING WHY WE HAVE TWO PEOPLE IN THE ROOM WHEN SHE IS WALKING. PT IS NOW IN BED AND HAS CALL LIGHT
--- NOTE | 2024-05-29 20:30 | NUR ---
ADRI RT IN FOR NEBULIZER TREATMENT.
--- NOTE | 2024-05-29 21:04 | NUR ---
VS TAKEN AT THIS TIME REVIEWED AND ARE STABLE AT THIS TIME.
--- NOTE | 2024-05-29 21:30 | NUR ---
in room to assist pt back in bed.rt in room, recently gave scheduled breathing tx. pt sitting on edge of bed and assisted with getting pt's ble raised and in bed, pt did most of the work and scooted self higher in bed, bed alarm resumed. room tided up, dinner tray removed, cords organized, and garbage taken out. fresh water provided. pt denies additional needs, call light in reach along with other personal belongings, primary rn kamla updated and aware.
--- NOTE | 2024-05-29 23:09 | NUR ---
PT AWAKE AND ALERT AT THIS TIME, ROUNTINE A/B GIVEN PER ORDER, ASSESSMENT COMPLETED, PT PULLED OFF ABOUT QUARTER SIZE SCAB FROM ABDOMEN WHICH CAUSED SOME SANG BLEEDING SMALL AMOUNT, MATTHEW TO SITE, INSTRUCTED PT NOT TO REMOVE SCAB DUE TO POTENTIAL FOR ENTRANCE FOR INFECION, PT C/O DISCOMFORT ON RIGHT SIDE OF ABDOMEN, AREA REDDENED, AREA PUSHED TO SIDE OF CHAIR, DISCUSSED GETTING BACK TO BED TO BE ABLE TO GET INTO MORE COMFORTABLE POSITION, PT DECLINES THIS AND ALSO A PILLOW TO CUSHION THIS SIDE, PT DISCUSSING THAT SHE NEEDS TO LEAVE HOSPITAL TOMORROW TO GET TO [place], PLAN TO F/U WITH MD TOMORROW. CALL LIGHT IN REACH.
--- NOTE | 2024-05-29 23:48 | NUR ---
iv pump alarming, iv abx complete, iv fluids resumed at ordered rate. iv site wnl.
--- NOTE | 2024-05-29 23:50 | NUR ---
HELPED PT FROM RECLINING CHAIR BACK INTO BED. GAVE PT A WARM BLANKET FOR HER LEFT HAND AND ARM. BED ALARM ON.
[2024-05-30] VITALS (11 sets, daily range): BP systolic 114–155; BP diastolic 69–101
--- NOTE | 2024-05-30 00:45 | NUR ---
NURSE CALLED TO ROOM C/O DRY MOUTH, HUSSEIN BYNUM INTO ROOM TO GIVEN DRINK OF FLUIDS AND TO PUT TABLE IN PT'S REACH, PT RESTING.
--- NOTE | 2024-05-30 01:05 | NUR ---
PT ASSISTED UP TO BR TO VOID PER UHSSEIN BYNUM, 1PA WITH FWW.
--- NOTE | 2024-05-30 02:00 | NUR ---
PT AWAKE, PERIODIC EXPIRATORY WHEEZES HEARD, PT FEELS LIKE SHE NEEDS A NEBULIZER TREATMENT, RT NOTIFIED, PT REQUESTING TYLENOL FOR HEADACHE 07/09, PT STATES SHE HAS HAD A HEADACHE FOR 4 DAYS, IV SITE INTACT, NS AT 125ML/HR.
--- NOTE | 2024-05-30 02:16 | NUR ---
ADRI RT DONE WITH NEBULIZER TREATMENT, REPORTS PT DOESN'T WANT TO WEAR OXYGEN AT THIS TIME, PLAN TO MONITOR CPOX AND IF SATS DROP BELOW 88%.
--- NOTE | 2024-05-30 02:20 | NUR ---
call light answered, socks off per pt request. bed alarm on and call light in reach.
--- NOTE | 2024-05-30 02:39 | NUR ---
PT AWAKE, REPORTS SHE IS UNCOMFORTABLE, WANTS TO SIT UP ON SIDE OF BED, PT ASSISTED UP TO SIDE OF BED, PT WANTS TO SLEEP ON COUCH OR FLOOR, DISCUSSED THIS IS NOT POSSIBLE, OFFERED THE RECLINER BUT PT DECLINES, PT SITTING ON SITE OF PT, SOME NAUSEA REPORTED, MEDICATED WITH ZOFRAN 4MG IV PER ORDER, PT C/O BEING COLD,WARM BLANKET GIVEN. BED ALARM BACK ON, CALL LIGHT IN REACH.
--- NOTE | 2024-05-30 03:14 | NUR ---
PT RESTING QUIETLY WITH EYES CLOSED, CPOX ALARMING, SATS REPORTED PER HUSSEIN BARN HAND 85-90%, PT PLACED ON 1L/NC WHILE SLEEPING TO MAINTAIN OXYGEN SATS 88 OR GREATER.
--- NOTE | 2024-05-30 03:40 | NUR ---
PT ASLEEP RESP EVEN AND REG, CPOX 88-92%. OXYGEN REMAINS IN PLACE AT 1L/NC
--- NOTE | 2024-05-30 04:45 | NUR ---
PT ASLEEP, RESP EVEN AND REG, OXYGEN IN PLACE, CPOX 90-92%
[2024-05-30 05:28] LABS: BASOPHILS 0.3 % (0-2); EOSINOPHILS 1.2 % (0-6); HEMATOCRIT 32.2 % (35.0-50.0); HEMOGLOBIN 10.4 g/dL (12.0-18.0); LYMPHOCYTES 14.2 % (24-44); MCH 27.2 (27-36); MCHC 32.2 g/dl (30-36); MCV 84.5 fl (81-99); MONOCYTES 7.4 % (0-12); NEUTROPHILS 76.9 % (39-80); PLATELET COUNT 281 K/uL (140-440); RBC 3.81 M/ul (4.3-5.7); RDW 15.7 (10.5-15.0)
[2024-05-30 05:44] LABS: ALBUMIN 2.4 g/dL (3.4-5.0); ALBUMIN/GLOBULIN RATIO 0.53 (1.1-2.4); ANION GAP 11.6 (7-21); BILIRUBIN, TOTAL 0.2 ng/dL (0.2-1.0); BUN/CREATININE RATIO 7.14 (6.0-28.6); CALCIUM 8.8 mg/dL (8.5-10.1); CREATININE, SERUM 0.7 mg/dL (0.55-1.02); POTASSIUM 3.6 mmol/L (3.5-5.1); PROTEIN, TOTAL 6.9 g/dL (6.4-8.2)
--- NOTE | 2024-05-30 06:20 | NUR ---
PT ASSISTED UP TO BR WITH 1 PA AND FWW, VOIDED 400ML LIGHT YELLOW URINE, PT WOULD LIKE TO KEEP OXYGEN ON AT 1L/NC BECAUSE SHE FEEL THAT SHE WOULD LIKE TO FALL ASLEEP, RIGHT ABDOMEN AND SIDE CONTINUES TO BE WARM TO TOUCH AND RED, PT ALERT AND ORIENTENED, DENIES NEEDS AT THIS TIME.
--- NOTE | 2024-05-30 07:15 | NUR ---
Report rec'd from Taylor Dominguez Pt lying on left side, SPO2 95-96% on 1LNC, O2 turned off. No acute distress noted.
--- NOTE | 2024-05-30 07:15 | NUR ---
REPORT RECIEVED FROM ANNIA Dominguez RN. PT LAYING IN BED ON LEFT SIDE WITH EYES CLOSED, RR EVEN AND UNLABORED. O2 SATS BETWEEN 95-96% ON 1L NC. PT TAKEN TO RA AND O2 SATS REMAIN AT 95%.
--- NOTE | 2024-05-30 07:59 | NUR ---
BOARD HAS BEEN UPDATED AND CALL LIGHT HAS BEEN PLACED WITHIN REACH
--- NOTE | 2024-05-30 10:20 | NUR ---
Patient awake in bed on her phone. Patient remains on 2L oxygen, sp02 95% at this time, respirations non labored. Patient reports she keeps trying to call her friends to come her so she can go home. Patient denies any needs from hospital staff. No notable acute distress. Call light within reach-staff continues to encourage pt to stay for continued IV antibiotic treatment.
--- NOTE | 2024-05-30 11:26 | NUR ---
Pt seen by , not cleared for discharge. Pt aware she would need to leave AMA. Pt states she needs to leave to fish bait picker her son, Benson, from [facility] on . This RN spoke with patient regarding recommendations to stay in hospital and did not feel she was safe to drive to [place] at this time. Pt stated she may be able to make alternate arrangements and have Yeni, ex-girlfriend of Benson, pick him up. Call placed to [facility] per patient request to inform them she may not be able to fish bait picker patient on Saturday. RN spoke with Officer Uli (?sp), he stated Benson is planned to release on Saturday and could be anytime after 499. There is no uniform patrol police officer to discuss release with until Saturday because of the holiday. CM provided this information to the patient and provided contact information to bryant, to contact with updates for fish bait picker. At this time, patient is agreeable to remain in the hospital.
--- NOTE | 2024-05-30 13:29 | NUR ---
Pt requested to attempt to contact Christiano Alvarez in [place], [place] and Usama Alvarez in [place] for potential orange picker machine operator of her son, Benson. No current contact information found via [employer] and patient does not have contact numbers. VM left for a Tanner Bundy, requesting return call.
--- NOTE | 2024-05-30 13:59 | NUR ---
REPORT GIVEN TO HERMINIO BECERRIL.
--- NOTE | 2024-05-30 14:49 | NUR ---
pt got a shower by subscription clerk and is currently sitting up in chair in room watching tv and is on her phone with nc on with 1 liter. cpox machine is on and will continue to monitor call light within reach
[2024-05-30] MEDS ORDERED: TRAZODONE HCL 50 MG TAB PO PRN (17:45)
--- NOTE | 2024-05-30 18:04 | NUR ---
Pt stated several times she was planning to leave today, RN was able to discuss discharge AMA with her and she continues to stay in hospital. Pt has been unable at this time to find anyone to assist her with transportation for her son in [place] for his release from [facility] on Saturday06/01/2024. Pt remained A&Ox4 t/o shift, up with FWW, SBA to BRP and spent most of day in recliner chair. Pt tolerated shower and wound care. Pt tolerating PO, IVF's dc'd, PIV saline locked. Pt voiding without difficulty. + Flatus, no BM for today. SPO2 ranged from low 80's while asleep and low 90's while awake on RA. Pt placed on 0.5 to 1LNC with saturations between 88-94% while sleeping. Remains sitting up in chair, call light and personal items in reach. HR remained 100-120. Pt c/o h/a x 1, relieved with Tylenol.
--- NOTE | 2024-05-30 20:35 | NUR ---
Patient awake, alert and oriented x3, no acute distress. Patient is on 2L oxyen per nc, respirations non labored. Patient denies sob. IV abx started per order. Vital signs stable, afebrile, sp02 95% at this time. Patient received trazadone 25mg po per her request for insomnia. Patient has no needs at this time. Call light within reach.
--- NOTE | 2024-05-30 21:34 | NUR ---
SERVICE DOG TRAINER HELPED PT WALK TO BATHROOM. SERVICE DOG TRAINER HELPED PT BACK INTO BED AND RESET BED ALARM.
--- NOTE | 2024-05-30 22:15 | NUR ---
IV PUMP ALARMING, IV ABX COMPLETE. pt SALINE LOCKED, IV SITE WNL. PRIMARY RN CHALO AWARE.
--- NOTE | 2024-05-31 01:12 | NUR ---
REPORT RECEIVED FROM CHALO. ROUNDED ON PT, ON HER LEFT SIDE/BACK. CPOX READING O2 93%, HR 100. RESP EVEN AND UNLABORED.
--- NOTE | 2024-05-31 02:08 | NUR ---
ACADEMIC INTERVENTIONIST HELPED PT TO BATHROOM AND BACK TO BED. ACADEMIC INTERVENTIONIST HELPED PATIENT GET POSSISTIONED IN BE AND TURNED BED ALARM ON.
--- NOTE | 2024-05-31 02:10 | NUR ---
THIS RN INTO ROOM, WHITE BOARD UPDATED. PT REQUEST A BREATHING TREATMENT, NOTIFIED RT. NO OTHER NEEDS AT THIS TIME.
--- NOTE | 2024-05-31 04:00 | NUR ---
PET CREMATORY WORKER INTO ROOM TO CHECK CPOX ALARM. THIS RN FOLLOWED, O2 82%, NOTED O2 TUBING LAYING ON HER BED, PT WITH EYES CLOSED, RESP EVEN AND UNLABORED, CPOX READING HR @115. ONCE O2 PLACED, SATS INCREASED TO 88-90; PT DID NOT WAKE DURING THIS INTERVENTION.
[2024-05-31 04:35] VITALS: BP 170/80
--- NOTE | 2024-05-31 04:50 | NUR ---
ASSESSMENT COMPLETED. PT STATES SHE FEELS BETTER THAN WHEN SHE WAS ADMITTED. DID C/O OF HEADACHE, OFFERED AND ACCEPTED TYLENOL. NOTED BP SL ELEVATED SINCE HER ADMISSION, SHE STATES "I REFUSE TO TAKE BLOOD PRESSURE MEDICATIONS, BECAUSE THEY OVERDOSED ME AND I HAD A STROKE". PT REFUSED TO TAKE BM MEDICATIONS, STATES SHE IS LEAVING THIS AM TO HEAD TO HER SON. NOTED HR ELEVATED WHEN SHE AMBULATED, SHE STATES SHE DOESN'T WALK MUCH AT HOME, USES HER WHEELCHAIR. NO OTHER NEEDS, BED ALARM PLACED.
[2024-05-31 05:17] LABS: BASOPHILS 0.3 % (0-2); EOSINOPHILS 1.1 % (0-6); HEMATOCRIT 32.5 % (35.0-50.0); HEMOGLOBIN 10.6 g/dL (12.0-18.0); LYMPHOCYTES 12.4 % (24-44); MCH 27.5 (27-36); MCHC 32.5 g/dl (30-36); MCV 84.5 fl (81-99); MONOCYTES 7.3 % (0-12); NEUTROPHILS 78.9 % (39-80); PLATELET COUNT 322 K/uL (140-440); RBC 3.85 M/ul (4.3-5.7); RDW 15.6 (10.5-15.0)
--- NOTE | 2024-05-31 05:32 | NUR ---
call light answered, pt assisted with scooting self in bed per pt request. call light in reach and bed alarm resumed, no further needs or concerns verbalized.
[2024-05-31 05:35] LABS: ALBUMIN 2.5 g/dL (3.4-5.0); ALBUMIN/GLOBULIN RATIO 0.52 (1.1-2.4); ANION GAP 8.8 (7-21); BILIRUBIN, TOTAL 0.2 ng/dL (0.2-1.0); BUN/CREATININE RATIO 6.75 (6.0-28.6); CALCIUM 9.5 mg/dL (8.5-10.1); CREATININE, SERUM 0.74 mg/dL (0.55-1.02); POTASSIUM 3.8 mmol/L (3.5-5.1); PROTEIN, TOTAL 7.3 g/dL (6.4-8.2)
--- NOTE | 2024-05-31 06:45 | NUR ---
call light answered, pt up sba with home walker and ambulated to bathroom-steady on feet. pt voided 400mls and back in bed. bed alarm resumed and call light in reach. cpox in place. pt denies additional needs or concerns.
--- NOTE | 2024-05-31 07:00 | NUR ---
Pt report received from HERMINIO Arriaza. Pt is up in chair, chair alarm on. Pt is resting with eyes closed, breathing regular, even and non-labored. Pt wakes easily to voice. A&O x4. Pt denies needs at this time. Call light in reach.
--- NOTE | 2024-05-31 07:25 | NUR ---
pt up in chair this am before this cloth classer on shift. no needs made at this time. call light within reach.
[2024-05-31] MEDS ORDERED: CEPHALEXIN500 MG PO (08:44)
[2024-05-31] MEDS ORDERED: METOPROLOL TART25 MG PO (08:46)
[2024-05-31] MEDS ORDERED: METOPROLOL TARTRATE 25 MG TAB PO SCH (09:00)
[2024-05-31 09:30] VITALS: BP 156/85
--- NOTE | 2024-05-31 09:53 | NUR ---
SPOKE W/ GERTRUDE. [facility] REP WILL DELIVER HOME 02 TAKEN WITHIN THE HOUR. FAXED ORDER/PAPERWORK TO [phone] THE LISTED [facility] FAX DID NOT WORK. THAT FAX # WAS PROVIDED BY [facility] ON PHONE. [facility] REP ALSO STATED TO THAT IT WAS OK TO SEND PAPERWORK W PT TO GIVE TO O2 MILL OPERATOR HELPER.
== END 2024-05-31 10:02 | disposition home or self-care (01) | DRG 872 ==
LOC: ED 20:47 → MS 22:34
PROVIDERS: Internal Medicine; ADMIT Family Medicine; ATTEND Internal Medicine
DX: A41.9 Sepsis, unspecified organism (principal); L03.311 Cellulitis of abdominal wall; E87.1 Hypo-osmolality and hyponatremia; I10 Essential (primary) hypertension; F32.A Depression, unspecified; J44.9 Chronic obstructive pulmonary disease, unspecified; L98.8 Other specified disorders of the skin and subcutaneous tissue; F17.210 Nicotine dependence, cigarettes, uncomplicated; E83.42 Hypomagnesemia; K57.30 Diverticulosis of large intestine without perforation or abscess without bleeding; Z87.19 Personal history of other diseases of the digestive system; Z90.49 Acquired absence of other specified parts of digestive tract; Z90.710 Acquired absence of both cervix and uterus; Z88.1 Allergy status to other antibiotic agents; Z88.8 Allergy status to other drugs, medicaments and biological substances; Z88.6 Allergy status to analgesic agent; Z88.5 Allergy status to narcotic agent; Z79.82 Long term (current) use of aspirin; Z79.899 Other long term (current) drug therapy
CPT/HCPCS: 36415; 51701; 71045; 74177; 80053; 81001; 82803; 83605; 83735; 83880; 84100; 84443; 84484; 85025; 85610; 85730; 87040; 93005; 93010; 94640; 94761; 94762; 97110; 97162; 97165; 97530; 99285-25; A9270; J0696; J0878; J1170; J1650; J2405; J3475; J7030; J7121; Q9967

== ENCOUNTER 2024-07-20 03:13 | Emergency (ER) | payer MEDICARE, OTHER ==
[~2024-07-20] VITALS: Ht 162.6 cm; Wt 95.0 kg
--- OUTSIDE RECORDS SUMMARY | ~2024-07-20 | XMS | Continuity of Care Document ---
Demographics + + + | Address | [address] | | | [place] [address] | + + + | Preferred Language | Unknown | + + + | Marital Status | Never | + + + | Yarsani Affiliation | Unknown | + + + | Race | White | + + + | Ethnic Group | Not or | + + + Author + + + | Author | [facility] | + + + | Organization | [facility] | + + + | Address | [address] [facility] [address] | | | [place] [address] | + + + | Phone | | + + + Care Team Providers + + + + | Care Spiritual Counselor Name | Role | Phone | [...] | | + + + + | 2024-05-31 00:00 | Cephalexin 500 MG Oral | [...] | | + + + + | 2024-05-31 00:00 | cephalexin 500 MG Oral | [facility] | | | Capsule | | + + + + | 2024-07-08 00:00 | cephalexin 500 MG Oral | [facility] | | | Capsule | | + + + + | 2024-05-08 00:00 | Lidoderm 5% External Patch | [facility] | | | | | + + + + | 2024-05-08 00:00 | Metoprolol Tartrate 25 MG | [facility] | | | Oral Tablet | | + + + + | 2024-05-31 00:00 | Metoprolol Tartrate 25 MG | [facility] | | | Oral Tablet | | + + + + | 2024-05-08 00:00 | metoprolol tartrate 25 MG | [facility] | | | Oral Tablet | | + + + + | 2024-05-31 00:00 | metoprolol tartrate 25 MG | [facility] | | | Oral Tablet | | + + + + Problems No information. Procedures No information. Results/Labs No information. Social History + + + + | date | description | facility | + + + + | 2024-05-11 00:00 | Unknown if ever smoked | [facility] | + + + + | 2024-06-04 00:00 | Unknown if ever smoked | [facility] | + + + + | 2024-07-08 00:00 | Unknown if ever smoked | [facility] | + + + + Vital Signs + + + + + | date | measurement | value | units | + + + + + | 2024-05-08 00:00 | BMI | 51.5 | 1 | + + + + + | 2024-05-08 00:00 | BP_diastolic | 106 | mmHg | + + + + + | 2024-05-08 00:00 | BP_systolic | 160 | mmHg | + + + + + | 2024-05-08 00:00 | BP_systolic | 184 | mmHg | + + + + + | 2024-05-08 00:00 | BSA | 2.3 | 1 | + + + + + | 2024-05-08 00:00 | heart_rate | 90 | /min | + + + + + | 2024-05-08 00:00 | height_metric | 162.56 | cm | + + + + + | 2024-05-08 00:00 | height_standard | 64 | in | + + + + + | 2024-05-08 00:00 | o2_saturation | 96 | % | + + + + + | 2024-05-08 00:00 | weight_metric | 136.08 | kg | + + + + + | 2024-05-08 00:00 | weight_standard | 300 | lb | + + + + + | 2024-06-04 00:00 | BP_diastolic | 84 | mmHg | + + + + + | 2024-06-04 00:00 | BP_systolic | 128 | mmHg | + + + + + | 2024-06-04 00:00 | heart_rate | 1|1| | completed | + + + + + | 2024-06-04 00:00 | heart_rate | 93 | /min | + + + + + | 2024-06-04 00:00 | height_metric | 162.56 | cm | + + + + + | 2024-06-04 00:00 | height_standard | 64 | in | + + + + + | 2024-06-04 00:00 | o2_saturation | 95 | % | + + + + + | 2024-06-04 00:00 | temperature_metric | 36.72 | C | | | | | | + + + + + | 2024-06-04 00:00 | | 98.1 | F | [...]
[~2024-07-20 03:13] MED LIST changes: +TYLENOL EXTRA500 MG PO
[2024-07-20] MEDS ORDERED: OXYCODONE HCL 5 MG TAB PO ONE (03:30)
[2024-07-20] MEDS ORDERED: PERCOCET 5-3251 EACH PO (03:40)
[2024-07-20] MEDS ORDERED: OXYCODONE/ACETAMINOPHEN 1 TAB HOME.PACK PO ONE (03:45)
[2024-07-20 04:10] VITALS: BP 145/93
== END 2024-07-20 04:10 | disposition home or self-care (01) ==
LOC: ED 03:13
DX: M25.512 Pain in left shoulder (principal); G89.29 Other chronic pain; I10 Essential (primary) hypertension; J44.89 Other specified chronic obstructive pulmonary disease; F17.200 Nicotine dependence, unspecified, uncomplicated; Z88.1 Allergy status to other antibiotic agents; Z88.8 Allergy status to other drugs, medicaments and biological substances; Z88.6 Allergy status to analgesic agent; Z88.5 Allergy status to narcotic agent; Z79.899 Other long term (current) drug therapy
CPT/HCPCS: 99283; A9270

== ENCOUNTER 2024-09-30 14:10 | Emergency (ER) | payer MEDICARE, OTHER ==
[~2024-09-30] VITALS: Ht 162.6 cm; Wt 134.7 kg
--- OUTSIDE RECORDS SUMMARY | ~2024-09-30 | XMS | Continuity of Care Document ---
Demographics + + + | Address | [address] | | | [place] [address] | + + + | Preferred Language | Unknown | + + + | Marital Status | Never | + + + | Religion Affiliation | Unknown | + + + | Race | White | + + + | Ethnic Group | Not or | + + + Author + + + | Author | [facility] | + + + | Organization | [facility] | + + + | Address | [address] | | | [place] [address] | + + + | Phone | | + + + Care Team Providers + + + + | Care Internal Grinder Tender Name | Role | Phone | [...] + + + + + + | [id number] | + + + + + +------+---------+ + | | 2024-07-23 | [facility] | 46 | ng/mL | (missing) | | [id number] | 09:37 | Medical | | | [...] NEGATIVE | (missing) | (missing) | | [id number] | 09:37 | Medical | ng/mL | [...]
[2024-09-30] MEDS ORDERED: ALBUTEROL SULFATE 0.5% 2.5 MG/0.5 ML VIAL INH ONE (14:30)
[2024-09-30] MEDS ORDERED: IPRATROPIUM BROMIDE 2.5 ML VIAL INH ONE (14:30)
[2024-09-30] MEDS ORDERED: methylPREDNISolone SOD SUCC 125 MG/2 ML VIAL IV ONE (14:30)
[2024-09-30 14:37] LABS: BASOPHILS 0.9 % (0-2); EOSINOPHILS 1.9 % (0-6); HEMATOCRIT 38.4 % (35.0-50.0); HEMOGLOBIN 12.4 g/dL (12.0-18.0); LYMPHOCYTES 22.4 % (24-44); MCH 26.8 (27-36); MCHC 32.2 g/dl (30-36); MCV 83.2 fl (81-99); MONOCYTES 5.6 % (0-12); NEUTROPHILS 69.2 % (39-80); PLATELET COUNT 339 K/uL (140-440); RBC 4.61 M/ul (4.3-5.7); RDW 17.1 (10.5-15.0)
[2024-09-30 15:03] LABS: ALBUMIN 2.8 g/dL (3.4-5.0); ALBUMIN/GLOBULIN RATIO 0.61 (1.1-2.4); ANION GAP 5.7 (7-21); BILIRUBIN, TOTAL 0.3 ng/dL (0.2-1.0); BUN/CREATININE RATIO 9.63 (6.0-28.6); CALCIUM 9.2 mg/dL (8.5-10.1); CREATININE, SERUM 0.83 mg/dL (0.55-1.02); POTASSIUM 3.7 mmol/L (3.5-5.1); PROTEIN, TOTAL 7.4 g/dL (6.4-8.2)
[2024-09-30] MEDS ORDERED: hydrALAZINE HCL 20 MG/ML VIAL IV ONE (16:45)
[2024-09-30] MEDS ORDERED: ALBUTEROL/IPRATROPIUM 3 ML NEB INH ONE (17:15)
[2024-09-30] MEDS ORDERED: METOPROLOL TARTRATE 50 MG TAB PO ONE (19:30)
[2024-09-30] MEDS ORDERED: HYDROmorphone HCL 1 MG/ML SYR IV ONE (19:30)
[2024-09-30] MEDS ORDERED: ondansetron HCL 4 MG/2 ML VIAL IV ONE (19:30)
--- NOTE | 2024-09-30 20:37 | EKG ---
[facility] [address] [facility] [facility] [place] [address] Signed Normal sinus rhythm Low voltage QRS Cannot rule out Anterior infarct , age undetermined Abnormal ECG When compared with ECG of 27-MAY-2024 21:02, No significant change was found Confirmed by Fredi Peace DO ([id number]) on 09/30/2024 8:37:43 PM Electronically Signed By: FREDI PEACE DO 09/30/[id number] PATIENT NAME: CHADCHASTITYCarin NOE Electrocardiogram DATE OF : 58 PHYSICIAN: FREDI PEACE DO REPORT #: [id number] REPORT IS CONFIDENTIAL AND NOT TO BE RELEASED WITHOUT AUTHORIZATION
[2024-09-30] MEDS ORDERED: CYCLOBENZAPRINE HCL 10 MG TAB PO ONE (21:45)
[2024-09-30] MEDS ORDERED: OXYCODONE/APAP 5/325 TAB PO SCH (21:45)
[2024-10-01] MEDS ORDERED: OXYCODONE/APAP 5/325 TAB PO SCH ×2 (02:00→09:00)
[2024-10-01] MEDS ORDERED: ONDANSETRON 4 MG TAB ODT SL ONE (02:00)
[2024-10-01] MEDS ORDERED: OXYCODONE/APAP 5/325 TAB PO PRN (04:00)
[2024-10-01] MEDS ORDERED: DOXYCYCLINE MO100 MG PO ×2 (09:48)
[2024-10-01] MEDS ORDERED: OXYCODONE/APAP 5/325 TAB PO ONE (10:30)
[2024-10-01] MEDS ORDERED: ALBUTEROL/IPRATROPIUM 3 ML NEB INH ONE (10:45)
[2024-10-01 12:57] VITALS: BP 132/94
== END 2024-10-01 12:57 ==
LOC: ED 14:10
PROVIDERS: Emergency Medicine
DX: R06.02 Shortness of breath (principal); M25.512 Pain in left shoulder; I10 Essential (primary) hypertension; J44.89 Other specified chronic obstructive pulmonary disease; F17.200 Nicotine dependence, unspecified, uncomplicated; Z88.1 Allergy status to other antibiotic agents; Z88.8 Allergy status to other drugs, medicaments and biological substances; Z88.5 Allergy status to narcotic agent; Z79.899 Other long term (current) drug therapy
CPT/HCPCS: 36415; 51702; 71045; 71250; 73030; 80053; 83880; 84484; 85025; 87502; 93005; 93010; 94640; 94644; 99285-25; A9270; J0360; J1171; J2405; J2919; U0002

== ENCOUNTER 2024-10-03 05:24 | Inpatient (IN) | payer MEDICARE, OTHER ==
[2024-10-03] VITALS (7 sets, daily range): BP systolic 116–132; BP diastolic 57–73
[~2024-10-03] VITALS: Ht 162.6 cm; Wt 119.8 kg
--- OUTSIDE RECORDS SUMMARY | ~2024-10-03 | XMS | Continuity of Care Document ---
Demographics + + + | Address | [address] | | | [place] [address] | + + + | Preferred Language | Unknown | + + + | Marital Status | Never | + + + | Pentecostal Affiliation | Unknown | + + + | Race | White | + + + | Ethnic Group | Not or | + + + Author + + + | Author | [facility] | + + + | Organization | [facility] | + + + | Address | [address] | | | [place] [address] | + + + | Phone | | + + + Care Team Providers + + + + | Care Sample Builder Name | Role | Phone | [...] + + + + + + | [id number] | + + + + + +------+---------+ + | | 2024-07-23 | [facility] | 46 | ng/mL | (missing) | | [id number] | 09:37 | Medical | | | [...] NEGATIVE | (missing) | (missing) | | [id number] | 09:37 | Medical | ng/mL | [...]
[~2024-10-03 05:24] MED LIST changes: +DOXYCYCLINE MO100 MG PO
--- OUTSIDE RECORDS SUMMARY | 2024-10-03 05:40 | XMS | Continuity of Care Document ---
Demographics + + + | Address | [address] | | | [place] [address] | + + + | Preferred Language | Unknown | + + + | Marital Status | Never | + + + | Adventist Affiliation | Unknown | + + + | Race | White | + + + | Ethnic Group | Not or | + + + Author + + + | Author | [facility] | + + + | Organization | [facility] | + + + | Address | [address] | | | [place] [address] | + + + | Phone | | + + + Care Team Providers + + + + | Care Property Inspector Name | Role | Phone | + + + + Unavailable | Unavailable | + + + + Unavailable | Unavailable | + + + + Allergies No information. Encounters No information. Functional Status No information. Immunizations No information. Medications + + + + | date | description | facility | + + + + | 2024-07-23 00:00 | acetaminophen 325 MG / | [facility] | | | oxycodone hydrochloride 5 | | | | MG Oral Tablet [Percocet] | | + + + + | 2024-07-23 00:00 | Percocet 5-325 MG Oral | [facility] | | | Tablet | | + + + + | 2024-07-08 00:00 | Cephalexin 500 MG Oral | [facility] | | | Capsule | | + + + + | 2024-07-10 00:00 | Cephalexin 500 MG Oral | [facility] | | | Capsule | | + + + + | 2024-07-08 00:00 | cephalexin 500 MG Oral | [facility] | | | Capsule | | + + + + | 2024-07-10 00:00 | cephalexin 500 MG Oral | [facility] | | | Capsule | | + + + + Problems No information. Procedures No information. Results/Labs +--------+--------+ +---------+--------+---------+ | test | date | facility | value | unit | notes | +--------+--------+ +---------+--------+---------+ + + | GRAM STAIN | + + + + + + + + + | RESULT #1 | 2024-07-08 | [facility] | 07/09/2024 | (missing) | (missing) | | | 13:06 | Medical | 10:53 AM;Few | | | | | | Group | Gram | | | | | | | Positive | | | | | | | Cocci | | | + + + + + + + + + | CULTURE, AEROBIC | + + + + + + + + + | RESULT #1 | 2024-07-08 | [facility] | See Note | (missing) | (missing) | | | 13:06 | Medical | | | | | | | Group | | | | + + + + + + + | RESULT #2 | 2024-07-08 | [facility] | See Note | (missing) | (missing) | | | 13:06 | Medical | | | | | | | Group | | | | + + + + + + + | RESULT #3 | 2024-07-08 | [facility] | See Note | (missing) | (missing) | | | 13:06 | Medical | | | | | | | Group | | | | + + + + + + + | RESULT #4 | 2024-07-08 | [facility] | 07/11/2024 | (missing) | (missing) | | | 13:06 | Medical | 08:09 AM;See | | | | | | Group | | | | | | | | susceptibili | | | | | | | ties for | | | | | | | Staphylococc | | | | | | | us aureus | | | + + + + + + + + + | SUSCEPTIBILITY (Staphylococcus aureus) | + + + + + + + + + | | 2024-07-08 | [facility] | See Note | (missing) | (missing) | | SUSCEPTIBILI | 13:06 | Medical | | | | | TY | | Group | | | | | (Staphylococ | | | | | | | cus aureus) | | | | | | + + + + + + + + + | DRUG, SCRN PAIN MGT-URINE | + + + + + + + + + | | 2024-07-23 | [facility] | POSITIVE | (missing) | (missing) | | CANNABINOIDS | 09:37 | Medical | ng/mL | | | | | | Group | | | | + + + + + + + | ECSTASY | 2024-07-23 | [facility] | NEGATIVE | (missing) | (missing) | | | 09:37 | Medical | ng/mL | | | | | | Group | | | | + + + + + + + | OXYCODONE | 2024-07-23 | [facility] | POSITIVE | (missing) | (missing) | | | 09:37 | Medical | ng/mL | | | | | | Group | | | | + + + + + + + | | 2024-07-23 | [facility] | NEGATIVE | (missing) | (missing) | | PHENCYCLIDIN | 09:37 | Medical | ng/mL | | | | E | | Group | | | | + + + + + + + | CREATININE, | 2024-07-23 | [facility] | 135.02 | mg/dL | (missing) | | URINE | 09:37 | Medical | | | | | | | Group | | | | + + + + + + + | | 2024-07-23 | [facility] | POSITIVE | (missing) | (missing) | | AMPHETAMINES | 09:37 | Medical | ng/mL | | | | | | Group | | | | + + + + + + + | | 2024-07-23 | [facility] | NEGATIVE | (missing) | (missing) | | BARBITURATES | 09:37 | Medical | ng/mL | | | | | | Group | | | | + + + + + + + | | 2024-07-23 | [facility] | NEGATIVE | (missing) | (missing) | | BENZODIAZEPI | 09:37 | Medical | ng/mL | | | | JAMES | | Group | | | | + + + + + + + | COCAINE | 2024-07-23 | [facility] | NEGATIVE | (missing) | (missing) | | | 09:37 | Medical | ng/mL | | | | | | Group | | | | + + + + + + + | METHADONE | 2024-07-23 | [facility] | NEGATIVE | (missing) | (missing) | | | 09:37 | Medical | ng/mL | | | | | | Group | | | | + + + + + + + | OPIATES | 2024-07-23 | [facility] | POSITIVE | (missing) | (missing) | | | 09:37 | Medical | ng/mL | | | | | | Group | | | | + + + + + + + | ALCOHOL | 2024-07-23 | [facility] | NEGATIVE | (missing) | (missing) | | | 09:37 | Medical | ng/mL | | | | | | Group | | | | + + + + + + + + + | [id number] | + + + + + +------+---------+ + | | 2024-07-23 | [facility] | 46 | ng/mL | (missing) | | [id number] | 09:37 | Medical | | | | | U-Q | | Group | | | | + + + +------+---------+ + + + | AMPHETAMINE, URINE CONFIRM | + + + + + + + + + | METHAMPHET | 2024-07-23 | [facility] | 2984 | ng/mL | (missing) | | | 09:37 | Medical | | | | | | | Group | | | | + + + + + + + | PHENTERMINE | 2024-07-23 | [facility] | NEGATIVE | (missing) | (missing) | | | 09:37 | Medical | ng/mL | | | | | | Group | | | | + + + + + + + | AMPHETAMINE | 2024-07-23 | [facility] | 1185 | ng/mL | (missing) | | | 09:37 | Medical | | | | | | | Group | | | | + + + + + + + | MDEA | 2024-07-23 | [facility] | NEGATIVE | (missing) | (missing) | | | 09:37 | Medical | ng/mL | | | | | | Group | | | | + + + + + + + + + | OPIATES, URINE CONFIRM | + + + + + + + + + | CODEINE | 2024-07-23 | [facility] | NEGATIVE | (missing) | (missing) | | | 09:37 | Medical | ng/mL | | | | | | Group | | | | + + + + + + + | MORPHINE | 2024-07-23 | [facility] | NEGATIVE | (missing) | (missing) | | | 09:37 | Medical | ng/mL | | | | | | Group | | | | + + + + + + + | HYDROCODONE | 2024-07-23 | [facility] | 756 | ng/mL | (missing) | | | 09:37 | Medical | | | | | | | Group | | | | + + + + + + + | | 2024-07-23 | [facility] | NEGATIVE | (missing) | (missing) | | MEPERIDINE-U | 09:37 | Medical | ng/mL | | | | -Q | | Group | | | | + + + + + + + | | 2024-07-23 | [facility] | 438 | ng/mL | (missing) | | HYDROMORPHON | 09:37 | Medical | | | | | E | | Group | | | | + + + + + + + | | 2024-07-23 | [facility] | NEGATIVE | (missing) | (missing) | | [id number] | 09:37 | Medical | ng/mL | | | | -U-Q | | Group | | | | + + + + + + + | TRAMADOL | 2024-07-23 | [facility] | NEGATIVE | (missing) | (missing) | | | 09:37 | Medical | ng/mL | | | | | | Group | | | | + + + + + + + | TAPENTADOL | 2024-07-23 | [facility] | NEGATIVE | (missing) | (missing) | | | 09:37 | Medical | ng/mL | | | | | | Group | | | | + + + + + + + | | 2024-07-23 | [facility] | NEGATIVE | (missing) | (missing) | | TAPENTADOL-S | 09:37 | Medical | ng/mL | | | | | | Group | | | | + + + + + + + | | 2024-07-23 | [facility] | 771 | ng/mL | (missing) | | NORHYDROCODO | 09:37 | Medical | | | | | N | | Group | | | | + + + + + + + | | 2024-07-23 | [facility] | NEGATIVE | (missing) | (missing) | | [id number] | 09:37 | Medical | ng/mL | | | | | | Group | | | | + + + + + + + | | 2024-07-23 | [facility] | 207 | ng/mL | (missing) | | NOROXMORPHON | 09:37 | Medical | | | | | E | | Group | | | | + + + + + + + + + | OXYCODONE, URINE CONFIRM | + + + + + +-------+---------+ + | OXYCODONE | 2024-07-23 | [facility] | 569 | ng/mL | (missing) | | | 09:37 | Medical | | | | | | | Group | | | | + + + +-------+---------+ + | OXYMORPHONE | 2024-07-23 | [facility] | 982 | ng/mL | (missing) | | | 09:37 | Medical | | | | | | | Group | | | | + + + +-------+---------+ + | | 2024-07-23 | [facility] | 783 | ng/mL | (missing) | | NOROXYCODONE | 09:37 | Medical | | | | | | | Group | | | | + + + +-------+---------+ + + + | Reported Physicians | + + + + + + + + + | Reported | 2024-07-08 | [facility] | See Note | (missing) | (missing) | | Physicians | 13:06 | Medical | | | | | | | Group | | | | + + + + + + + + + | Reported Physicians | + + + + + + + + + | Reported | 2024-07-23 | [facility] | See Note | (missing) | (missing) | | Physicians | 09:37 | Medical | | | | | | | Group | | | | + + + + + + + Social History + + + + | date | description | facility | + + + + | 2024-07-08 00:00 | Unknown if ever smoked | [facility] | + + + + | 2024-07-24 00:00 | Unknown if ever smoked | [facility] | + + + + | 2024-08-03 00:00 | Unknown if ever smoked | [facility] | + + + + Vital Signs + + + + + | date | measurement | value | units | + + + + + | 2024-07-08 00:00 | BP_diastolic | 70 | mmHg | + + + + + | 2024-07-08 00:00 | BP_systolic | 128 | mmHg | + + + + + | 2024-07-08 00:00 | heart_rate | 101 | /min | + + + + + | 2024-07-08 00:00 | heart_rate | 1|1| | completed | + + + + + | 2024-07-08 00:00 | height_metric | 162.56 | cm | + + + + + | 2024-07-08 00:00 | height_standard | 64 | in | + + + + + | 2024-07-08 00:00 | o2_saturation | 97 | % | + + + + + | 2024-07-08 00:00 | temperature_metric | 36.94 | C | | | | | | + + + + + | 2024-07-08 00:00 | | 98.5 | F | | | temperature_standar | | | | | d | | | + + + + + | 2024-07-23 00:00 | BP_diastolic | 82 | mmHg | + + + + + | 2024-07-23 00:00 | BP_systolic | 128 | mmHg | + + + + + | 2024-07-23 00:00 | heart_rate | 108 | /min | + + + + + | 2024-07-23 00:00 | heart_rate | 1|1| | completed | + + + + + | 2024-07-23 00:00 | height_metric | 162.56 | cm | + + + + + | 2024-07-23 00:00 | height_standard | 64 | in | + + + + + | 2024-07-23 00:00 | o2_saturation | 97 | % | + + + + + | 2024-07-23 00:00 | temperature_metric | 36.72 | C | | | | | | + + + + + | 2024-07-23 00:00 | | 98.1 | F | | | temperature_standar | | | | | d | | | + + + + + | 2024-07-30 00:00 | BP_diastolic | 78 | mmHg | + + + + + | 2024-07-30 00:00 | BP_systolic | 130 | mmHg | + + + + + | 2024-07-30 00:00 | heart_rate | 103 | /min | + + + + + | 2024-07-30 00:00 | heart_rate | 1|1| | completed | + + + + + | 2024-07-30 00:00 | height_metric | 162.56 | cm | + + + + + | 2024-07-30 00:00 | height_standard | 64 | in | + + + + + | 2024-07-30 00:00 | o2_saturation | 99 | % | + + + + + | 2024-07-30 00:00 | temperature_metric | 36.78 | C | | | | | | + + + + + | 2024-07-30 00:00 | | 98.2 | F | | | temperature_standar | | | | | d | | | + + + + +"
[2024-10-03] MEDS ORDERED: CEFTRIAXONE/SODIUM CHLORIDE 2 GM/100 ML PIGGYBACK IV ONE (05:45)
[2024-10-03] MEDS ORDERED: SODIUM CHLORIDE 0.9% 1,000 ML IV ONE (05:45)
[2024-10-03] MEDS ORDERED: ACETAMINOPHEN 500 MG TAB PO ONE (05:45)
[2024-10-03 05:53] LABS: BASOPHILS 0.7 % (0-2); EOSINOPHILS 0.3 % (0-6); HEMATOCRIT 39.2 % (35.0-50.0); HEMOGLOBIN 12.4 g/dL (12.0-18.0); LYMPHOCYTES 4.6 % (24-44); MCH 26.3 (27-36); MCHC 31.6 g/dl (30-36); MCV 83.4 fl (81-99); NEUTROPHILS 92.4 % (39-80); PLATELET COUNT 318 K/uL (140-440); RDW 17.2 (10.5-15.0)
[2024-10-03 05:57] LABS: BILIRUBIN, URINE NEGATIVE (negative); BLOOD/HGB, URINE TRACE-I (Negative); KETONE, URINE NEGATIVE (Negative); LEUK ESTERASE, URINE SMALL (negative); NITRITE, URINE POSITIVE (negative)
[2024-10-03] MEDS ORDERED: METOPROLOL TARTRATE 50 MG TAB PO ONE (06:00)
[2024-10-03] MEDS ORDERED: ALBUTEROL/IPRATROPIUM 3 ML NEB INH ONE (06:00)
[2024-10-03] MEDS ORDERED: methylPREDNISolone SOD SUCC 125 MG/2 ML VIAL IV ONE (06:00)
[2024-10-03 06:03] LABS: ALBUMIN 2.8 g/dL (3.4-5.0); ALBUMIN/GLOBULIN RATIO 0.6 (1.1-2.4); ANION GAP 9.2 (7-21); BILIRUBIN, TOTAL 0.7 ng/dL (0.2-1.0); BUN/CREATININE RATIO 11.62 (6.0-28.6); CALCIUM 8.6 mg/dL (8.5-10.1); CREATININE, SERUM 0.86 mg/dL (0.55-1.02); POTASSIUM 4.2 mmol/L (3.5-5.1); PROTEIN, TOTAL 7.5 g/dL (6.4-8.2)
[2024-10-03 06:23] LABS: BACTERIA, URINE 3+ /hpf (negative); CRYSTALS, URINE NONE SEEN (0-1+); WHITE BLOOD CELLS, URINE 21-40 /HPF (0-5)
[2024-10-03 06:24] LABS: COLLECTION TYPE, URINE CLEAN CATCH; EPITHELIAL CELLS, URINE SQUAMOUS 1+ /lpf (0-1+); REFLEX CULTURE, URINE Yes (No)
[2024-10-03 06:25] LABS: LACTIC ACID, BLOOD 1.4 mmol/L (0.4-2.0)
[2024-10-03 06:31] LABS: INFLUENZA B NAA NEGATIVE (NEGATIVE); RESPIRATORY SYNCYTIAL VIR NAA NEGATIVE (NEGATIVE)
[2024-10-03] MEDS ORDERED: ACETAMINOPHEN 325 MG TAB PO PRN ×2 (07:45→12:15)
[2024-10-03] MEDS ORDERED: ALBUTEROL SULFATE 0.083% 3 ML VIAL INH PRN (07:45)
--- NOTE | 2024-10-03 08:11 | NUR ---
pt TRANSPORTED TO [facility] VIA STRETCHER WITH RN. pt FEBRILE IN ER, 103.5 AXILLARY. REASSESSED IN ROOM AFTER COOL CLOTH APPLIED, BLANKETS REMOVED. 100.5 ORALLY. pt ORIENTED TO SELF, LOCATION, NOT EVENT. 3L OXYGEN BY OXYMASK IN PLACE INITIALLY TO MAINTAIN SPO2 WNL, TITRATED TO 1L OXYGEN BY OXYMASK SPO2 NOW 89-91%. BED IN LOW POSITION. BED ALARM ON. DRINK OF WATER PROVIDED.
[2024-10-03] MEDS ORDERED: ONDANSETRON 4 MG TAB ODT SL PRN (08:15)
--- NOTE | 2024-10-03 08:15 | NUR ---
pt YELLING OUT THAT SHES GOING TO [facility]. MARIA AO ANDREWS ORDERED, EMESIS BAG PROVIDED, HOB ELEVATED. PRIMARY RN NOTIFIED.
--- NOTE | 2024-10-03 10:47 | NUR ---
Patient nauseated. Admin zofran 4mg odt at this time. Patient drowsy, wakes to verbal stimuli then returns back to sleep. Oral care provided prior to admin of zofran. SP02 90% on 2L oxygen per nc, respirations non labord. Bed alarm intact. Pure wick in place, cloudy yellow urine noted.
[2024-10-03 12:08] LABS: PH, VENOUS 7.396 (7.31-7.41)
[2024-10-03] MEDS ORDERED: NICOTINE 21 MG/24 HR 1 EA TDSY TD SCH (12:09)
[2024-10-03] MEDS ORDERED: ondansetron HCL 4 MG/2 ML VIAL IV PRN (12:15)
--- NOTE | 2024-10-03 12:27 | NUR ---
MD INFORMED PER CCU THAT QTC IS ELEVATED 500-500'S. PER MD DISCONTINUE ZOFRAN AT THIS TIME. IF PT AWAKENS AND IS NAUSEATED WILL TRY ATIVAN FOR NAUSEA. PRIMARY RN NOTIFIED. TELEMETRY DISCONTINUED AT THIS TIME.
[2024-10-03 12:29] LABS: AMPHETAMINES, URINE POSITIVE (NEGATIVE); BARBITURATES, URINE NEGATIVE (NEGATIVE); BENZODIAZEPINE, URINE NEGATIVE (NEGATIVE); BUPRENORPHINE, URINE NEGATIVE (NEGATIVE); CANNABINOID, URINE NEGATIVE (NEGATIVE); COCAINE, URINE NEGATIVE (NEGATIVE); ECSTASY, URINE NEGATIVE (NEGATIVE); FENTANYL, URINE NEGATIVE (NEGATIVE); METHADONE, URINE NEGATIVE (NEGATIVE); OPIATES, URINE NEGATIVE (NEGATIVE); OXYCODONE, URINE POSITIVE (NEGATIVE); PHENCYCLIDINE, URINE NEGATIVE (NEGATIVE)
[2024-10-03] MEDS ORDERED: LACTATED RINGER'S 1,000 ML IV ONE (12:30)
--- NOTE | 2024-10-03 12:39 | NUR ---
SHANI FROM [facility] CALLED FOR UPDATE ON PT STATUS. INFORMED ADMITTED AND +UTI, ON IV ABX AT THIS TIME. GETTING SOME IV FLUIDS, ANTICIPATED 1-2 DAYS HERE. PRIMARY RN UPDATED.
[2024-10-03] MEDS ORDERED: methylPREDNISolone SOD SUCC 40 MG/ML VIAL IV SCH (14:00)
[2024-10-03] MEDS ORDERED: OXYCODONE-ACET1 EAC1 PO (15:40)
--- NOTE | 2024-10-03 15:58 | NUR ---
Patient more alert this afternoon, alert to self and place. Patient reports she does not remember how she arrived to the hospital-pt reoriented to location/situation. Patient tolerated eating lunch independently. Patient is on 2L oxygen per nc, respirations non labored, sp02 96%. Patient's brief and bedding changed as well due to incontinence. Pure wick replaced.
[2024-10-03] MEDS ORDERED: DULCOLAX10 MG PR ×2 (16:19)
[2024-10-03] MEDS ORDERED: FLEET ENEMA133 ML PR ×2 (16:19)
[2024-10-03] MEDS ORDERED: MILK OF MA400 MG/5 M PO ×2 (16:20)
[2024-10-03] MEDS ORDERED: NALOXONE H0.4 MG/12 ×2 (16:21)
[2024-10-03] MEDS ORDERED: NALOXONE H NAS ×2 (16:22)
[2024-10-03] MEDS ORDERED: ONDANSETRON HCL4 MG PO ×2 (16:23)
--- NOTE | 2024-10-03 19:17 | NUR ---
SHIFT REPORT RECEIVED FROM CHALO DURHAM, PT APPEARS TO SLEEP, LAYING ON LEFT SIDE, RESP EVEN AND REG, CPOX AT 95%, HR 100, SIDE RAILS UP X 4, BED ALARM ON, OXYGEN ON AT 2L/NC.
[2024-10-03] MEDS ORDERED: ENOXAPARIN SODIUM 40 MG/0.4 ML SYR SUB-Q SCH (21:00)
--- NOTE | 2024-10-03 21:50 | NUR ---
PT AWAKE AND ALERT, DISCUSSING EVENTS OF ADMISSION AND THAT SHE WAS AT [place] FOR THERAPY, VS DONE AND STABLE, AFEBRILE, PT REQUESTING TYLENOL FOR HEADACHE 02/06, GIVEN PER ORDER, RT MEDICATIONS GIVEN AND ASSESSMENT COMPLETED, FRESH WATER AND ICE GIVEN, PURE WICK IN PLACE.
--- NOTE | 2024-10-03 22:10 | NUR ---
PT DESIRES TO GET UP TO RECLINER, 1PA WITH RECLINER CLOSE TO BED, PT USES ARM REST OF CHAIR AND NURSE TO ASSIST UP AND TRANSFER TO RECLINER, FEET ELEVATED, OXYGEN IN PLACE, CALL LIGHT IN REACH, PT WATCHING TV.
--- NOTE | 2024-10-03 22:40 | NUR ---
PT REMAINS UP IN THE CHAIR, REQUESTING PUDDING, GIVEN, PT DENIES OTHER NEEDS, WATCHING TV, CALL LIGHT IN REACH.
--- NOTE | 2024-10-03 23:13 | NUR ---
CHIEF LOCK TENDER OPERATOR HELP PT BACK INTO THE BED.
--- NOTE | 2024-10-03 23:36 | NUR ---
PT APPEARS TO SLEEP, RESP EVEN AND REG, OXYGEN IN PLACE, CPOX AT 94%
[2024-10-04] VITALS (9 sets, daily range): BP systolic 121–151; BP diastolic 65–85
--- NOTE | 2024-10-04 00:25 | NUR ---
NURSE TO BEDSIDE, PT REPOSITIONED UP IN BED, PT TURNED TO LEFT SIDE, PT BECAME TEARY AND CRYING, STATING "I'M SCARED" WHEN QUESTIONED SHE STATES SHE FEELS HOT, AND IS AFRAID THAT WHAT HAPPENED YESTERDAY IS GOING TO HAPPEN AGAIN, SKIN COOL TO TOUCH, REASSURANCE GIVEN, PT ENCOURAGED TO ATTEMPT TO REST, PT CLOSES EYES.
--- NOTE | 2024-10-04 00:50 | NUR ---
PT APPEARS TO REST WITH EYES CLOSED. RESP EVEN AND REG.
[2024-10-04 05:22] LABS: BASOPHILS 0.2 % (0-2); HEMATOCRIT 38.2 % (35.0-50.0); HEMOGLOBIN 12.3 g/dL (12.0-18.0); LYMPHOCYTES 3.7 % (24-44); MCH 26.7 (27-36); MCHC 32.1 g/dl (30-36); MCV 83.2 fl (81-99); MONOCYTES 2.5 % (0-12); NEUTROPHILS 93.6 % (39-80); PLATELET COUNT 298 K/uL (140-440); RBC 4.59 M/ul (4.3-5.7); RDW 16.7 (10.5-15.0)
[2024-10-04 05:34] LABS: BUN/CREATININE RATIO 19.17 (6.0-28.6); CALCIUM 9.1 mg/dL (8.5-10.1); CREATININE, SERUM 0.73 mg/dL (0.55-1.02); MAGNESIUM 1.9 mg/dL (1.8-2.4)
--- NOTE | 2024-10-04 06:04 | NUR ---
PT AWAKE, ALERT, REPOSITIONED UP IN BED PER PT REQUEST, PT C/O LEG DISCOMFORT, MEDICATED WITH TYLENOL PER ORDER, RT SOLUMEDROL GIVEN PER ORDER, PT RESTING WITH EYES CLOSED.
--- NOTE | 2024-10-04 07:44 | NUR ---
PT RESTING SOUNDLY AT ANUM OF SHIFT REPORT, SATS 95%. FRESH H20 TO BEDSIDE CALL LIGHT IN REACH
--- NOTE | 2024-10-04 08:15 | NUR ---
PT CONTINUES SLEEPING AWAKENS TO TOUCH BUT REFUSES MORNING MEAL AT THIS TIME
[2024-10-04] MEDS ORDERED: CEFTRIAXONE/SODIUM CHLORIDE 1 GM/100 ML PIGGYBACK IV SCH (09:00)
--- NOTE | 2024-10-04 10:14 | NUR ---
PT AWAKENS LATE FOR MORNING MEAL SITTING ON EDGE OF BED EATING AT THIS TIME CALL LIGHT IN REACH
[2024-10-04] MEDS ORDERED: PHARMACY RENAL DOSE ADJUSTMENT 1 DOSE MISC PO SCH (12:00)
--- NOTE | 2024-10-04 12:03 | NUR ---
PT FROM THE SHOWER TO THE BED AGREES THIS WAS WELL TOLERATED. OPEN WOUNDS ON ABOMEN DRESSED WITH BRET
[2024-10-04] MEDS ORDERED: MICONAZOLE NITRATE 1 EA BTL TOP SCH (12:52)
[2024-10-04] MEDS ORDERED: NYSTATIN CREAM 30 GM TUBE TOP SCH (13:49)
[2024-10-04] MEDS ORDERED: CYCLOBENZAPRINE HCL 10 MG TAB PO PRN (14:00)
--- NOTE | 2024-10-04 15:35 | NUR ---
PT WORKING WITH P/T AT THIS TIME
--- NOTE | 2024-10-04 17:43 | NUR ---
EVENING MEAL IS SERVED PT SITTING UP ON EDGE OF BED AGREES SHE HAS EVERYTHING SHE NEEDS
--- NOTE | 2024-10-04 18:38 | EKG ---
[facility] [address] [facility] [place] [address] Signed Sinus tachycardia with premature atrial complexes Nonspecific ST abnormality Abnormal ECG When compared with ECG of 30-SEP-2024 14:16, premature atrial complexes are now present Vent. rate has increased BY 54 BPM Confirmed by Sree Joshua MD ([id number]) on 10/04/2024 6:38:06 PM Electronically Signed By: SREE JOSHUA MD 10/04/24 1838 PATIENT NAME: CHASTITY BONILLA Electrocardiogram DATE OF : 58 PHYSICIAN: SREE JOSHUA MD REPORT #: [id number] REPORT IS CONFIDENTIAL AND NOT TO BE RELEASED WITHOUT AUTHORIZATION
--- NOTE | 2024-10-04 19:12 | NUR ---
SHIFT REPORT RECEIVED FROM ALEXANDRE RN, PT RESTING QUIETLY IN BED, HOB ELEVATED APPROX 30 DEGRESS, SIDE RAILS UP.
--- NOTE | 2024-10-04 20:02 | NUR ---
LICENSED MORTICIAN HELPED PT BACK INTO BED. NEW PUREWICK WAS SETUP FOR THE NIGHT.
[2024-10-04] MEDS ORDERED: methylPREDNISolone SOD SUCC 40 MG/ML VIAL IV SCH (21:00)
[2024-10-04] MEDS ORDERED: ALBUTEROL SULFATE 0.083% 3 ML VIAL INH PRN (22:00)
--- NOTE | 2024-10-04 22:35 | NUR ---
PT AWAKE AND ALERT, ASSESSMENT COMPLETED, PT MEDICATED WITH TYLENOL FOR LEFT ARM AND LEFT HIP PAIN, PT MEDICATED WITH VISTARIL TO HELP HER SLEEP PER REQUEST, CPOX IN PLACE, SL IN RIGHT FOREARM INTACT AND FLUSHES WELL. SNACK GIVEN.
[2024-10-05] VITALS (9 sets, daily range): BP systolic 144–166; BP diastolic 72–113
--- NOTE | 2024-10-05 00:05 | NUR ---
PT RESTING, AWAKE BRIEFLY WITHOUT REQUESTS, OXYGEN IN PLACE AT 1L/NC, CPOX STABLE.
--- NOTE | 2024-10-05 01:15 | NUR ---
PT ASLEEP, RESP EVEN AND REG, CPOX 96%
--- NOTE | 2024-10-05 01:30 | NUR ---
PATIENT CALLED C/O "HOT" ROOM. CHECKED ROOM TEMP IT WAS IN THE LOWEST TEMP 67 DEGREE. COLD WASH CLOTH PROVIDED. PATIENT ASKED FOR SANDWICH FOR SNACK. PROVIDED.
--- NOTE | 2024-10-05 03:00 | NUR ---
PT APPEARS TO SLEEP, RESP EVEN AND REG, LAYING ON LEFT SIDE, CPOX SATS STABLE.
--- NOTE | 2024-10-05 04:18 | NUR ---
PT RESTING WITH EYES CLOSED, SOLUMEDROL 40MG IV GIVEN AT THIS TIME DUE TO APPROX 12 HOURS AFTER LAST DOSE, RIGHT SL PATENT AND FLUSHES WELL, PT BACK TO SLEEP, CPOX AY 95%. RESP EVEN AND REG.
[2024-10-05 05:36] LABS: BASOPHILS 0.4 % (0-2); HEMATOCRIT 36.3 % (35.0-50.0); HEMOGLOBIN 11.8 g/dL (12.0-18.0); LYMPHOCYTES 6.8 % (24-44); MCH 26.8 (27-36); MCHC 32.4 g/dl (30-36); MCV 82.6 fl (81-99); MONOCYTES 4.1 % (0-12); NEUTROPHILS 88.7 % (39-80); PLATELET COUNT 317 K/uL (140-440); RDW 17.3 (10.5-15.0)
[2024-10-05 05:53] LABS: ANION GAP 5.5 (7-21); BUN/CREATININE RATIO 28.57 (6.0-28.6); CALCIUM 9.8 mg/dL (8.5-10.1); CREATININE, SERUM 0.77 mg/dL (0.55-1.02); MAGNESIUM 2.2 mg/dL (1.8-2.4); POTASSIUM 4.5 mmol/L (3.5-5.1)
--- NOTE | 2024-10-05 06:00 | NUR ---
VS REVIEWED AND STABLE, PT REMAINS ON 1L/NC, PT WITHOUT COMPLAINTS AT THIS TIME.
--- NOTE | 2024-10-05 07:28 | NUR ---
REPORT FROM HERMINIO MILNER.
--- NOTE | 2024-10-05 08:58 | NUR ---
PATIENT IS SITTING UP IN BED TO EAT BREAKFAST. PATIENT IS ON 1L OF OXYGEN FOR 93% SATS. PUREWICK IN PLACE AND CLEAR YELLOW URINE DRAINING. PATIENT REPORTS 4/10 LEFT SIDE BODY PAIN, THIS IS CHRONIC AND PATIENT IS NOT REQUESTING PAIN MEDICATIONS AT THIS TIME. ALLEVYN IN PLACE AND COVERING EXCORIATED AREA. MORNING MEDICATIONS GIVEN. NO OTHER NEEDS AT THIS TIME.
--- NOTE | 2024-10-05 10:06 | NUR ---
UR CLINICAL REVIEW: 2 MN FOR [facility]ETS INPT FOR UTIWITH NEED FOR IV ABX MEDICARE OBS TO INPT 10/05/23 @ 0919 WILL UPDATE REG NO AUTH REQUIRED PER MEDICARE GUIDELINES DISCHARGE TO HOME WHEN STABLE
--- NOTE | 2024-10-05 10:08 | NUR ---
PATIENT IN BED, WAKES TO VOICE. SHE HAS BEEN AT [facility] FOR SNF. SHE PLANS ON RETURNING AT TIME OF DC. WHEN ATTEMPT TO ASK FURTHER QUESTIONS, SHE BEGINS TO SNORE WITH EYES CLOSED. WILL RETURN TO SPEAK WITH PATIENT AT A LATER TIME WHEN SHE IS MORE AWAKE.
--- NOTE | 2024-10-05 12:47 | NUR ---
PATIENT GIVEN A MENU SO SHE CAN MAKE HER OWN FOOD CHOICES.
--- NOTE | 2024-10-05 13:50 | NUR ---
VISITED DURING SPIRITUAL CARE ROUNDS. PT APPEARED TO BE SLEEPING. DID NOT DISTURB. PROVIDED PRAYER.
--- NOTE | 2024-10-05 14:36 | NUR ---
Patient got up from chair to the BSC. Returned to bed once done. New purewick placed.
--- NOTE | 2024-10-05 14:45 | NUR ---
PATIENT IS UP WORKING WITH PHYSICAL THERAPY.
--- NOTE | 2024-10-05 15:47 | NUR ---
PATIENT IS RESTING IN BED, NEW PURE WICK PLACED. NO OTHER NEEDS.
[2024-10-05] MEDS ORDERED: methylPREDNISolone SOD SUCC 40 MG/ML VIAL IV SCH (16:00)
--- NOTE | 2024-10-05 17:03 | NUR ---
PATIENT GIVEN IV SOLUMEDROL.
--- NOTE | 2024-10-05 17:11 | NUR ---
medications reconciled
--- NOTE | 2024-10-05 18:29 | NUR ---
PATIENT IS RESTING IN BED, DENIES NEEDS.
--- NOTE | 2024-10-05 19:24 | NUR ---
RECEIVED REPORT FROM DAY SHIFT RN. PATIENT IS RESTING IN BED WATCHING TV. PATIENT DENIES ANY NEEDS. CALL LIGHT IN REACH.
[2024-10-05] MEDS ORDERED: POLYETHYLENE GLYCOL 3350 1 PACKET PO SCH (21:00)
[2024-10-05] MEDS ORDERED: SENNOSIDES/DOCUSATE 1 EA TAB PO SCH (21:00)
--- NOTE | 2024-10-05 21:04 | NUR ---
PATIENTS VITALS TAKEN AND RECORDED. INTAKE AND OUTPUT RECORDED. PUREWICK IN PLACE. PATIENTS PM MEDS GIVEN PER ORDER. PATIENT IS ON RA. CPOX ON USE. PATIENT REPOSITIONED IN BED. PATIENTS ASSESMENT COMPLETED. PATIENT PROVIDED FRESH ICE WATER. PATIENT DENIES ANY FURTHER NEEDS. CALL LIGHT IN REACH. IV FLUSHED AND SL PER ORDER.
--- NOTE | 2024-10-05 22:08 | NUR ---
PATIENT IS RESTING IN BED WITH EYES CLOSED, CPOX READINGS ARE WNL. NAD NOTED. CALL LIGHT IN REACH.
--- NOTE | 2024-10-05 23:02 | NUR ---
INDUSTRIAL LOCOMOTIVE OPERATOR HELPED PT SIT ON THE SIDE OF BED.
--- NOTE | 2024-10-05 23:38 | NUR ---
PARAMEDIC HELPED PT BACK INTO BED AND GAVE PT A DAMP WASHCLOTH FOR COMFORT.
[2024-10-06] VITALS (7 sets, daily range): BP systolic 155–177; BP diastolic 98–103
--- NOTE | 2024-10-06 00:49 | NUR ---
CALL LIGHT ANSWERED. pt REPOSITIONED HIGHER IN BED PER REQUEST, 2PA TO BOOST. pt REMOVES OXYGEN AT THIS TIME STATES "I'M NOT SLEEPING RIGHT NOW". BED IN LOW POSITION, BED ALARM ON.
--- NOTE | 2024-10-06 00:58 | NUR ---
PATIENT IS RESTING IN BED DRINKING WATER. PATIENT DENIES ANY NEEDS. CALL LIGHT IN REACH.
--- NOTE | 2024-10-06 02:30 | NUR ---
PATIENT IS RESTING IN BED WITH EYES CLOSED, CPOX READINGS ARE WNL. CALL LIGHT IN REACH. BED ALARM ON FOR SAFETY.
--- NOTE | 2024-10-06 03:11 | NUR ---
PATIENT CALLED AND REQUESTED SLEEP AID. THIS RN EDUCATED PATIENT THAT IT IS 3 AM AND SHE HAS NO SLEEP AID AVAILABLE. PATIENT STATED "I AM NOT SLEEPING AT ALL HERE". PATIENT EDUCATED THAT WHEN THIS RN ROUNDED ON PATIENT EARLIER WITH KILN CAR UNLOADER PATIENT WAS ASLEEP. PATIENT REPORTS GENERAL DISCOMFORT, PRN MEDICATION GIVEN PER ORDER. PATIENTS ATTEND CHANGED, PUREWICK CHANGED, AND MICHAEL CARE COMPLETED. PATIENT PROVIDED WARM BLANKET. PATIENT DENIES ANY FURTHER NEEDS. CALL LIGHT IN REACH. CPOX IN USE.
--- NOTE | 2024-10-06 04:00 | NUR ---
PATIENT IS RESTING IN BED WATCHING TV AND DRINKING [place]. PATIENT EDUCATED ON [place]FFEINE BEING A BARRIER TO SLEEP. PATIENT STATED "I DONT CARE". PATIENT DENIES ANY NEEDS. CALL LIGHT IN REACH. BED ALARM ON FOR SAFETY.
--- NOTE | 2024-10-06 04:48 | NUR ---
PATIENT ASSISTED TO RECLINER BY FLETCHER A 1PA W/FWW. VITALS TAKEN AND RECORDED. PATIENT REPORTS IMPROVEMENT IN PAIN. INTAKE AND OUTPUT RECORDED. PUREWICK IN PLACE. AM MEDS GIVEN PER ORDER. PATIENT PROIVDED COFFEE. PATIENT DENIES ANY FURTHER NEEDS. CALL LIGHT IN REACH.
[2024-10-06 05:22] LABS: HEMATOCRIT 39.6 % (35.0-50.0); HEMOGLOBIN 12.5 g/dL (12.0-18.0); MCH 26.4 (27-36); MCHC 31.6 g/dl (30-36); MCV 83.6 fl (81-99); PLATELET COUNT 364 K/uL (140-440); RBC 4.74 M/ul (4.3-5.7); RDW 17.4 (10.5-15.0)
[2024-10-06 05:31] LABS: ANION GAP 9.1 (7-21); BUN/CREATININE RATIO 29.48 (6.0-28.6); CALCIUM 9.2 mg/dL (8.5-10.1); CREATININE, SERUM 0.78 mg/dL (0.55-1.02); MAGNESIUM 1.9 mg/dL (1.8-2.4); POTASSIUM 4.1 mmol/L (3.5-5.1)
[2024-10-06 06:00] LABS: LYMPHOCYTES, MANUAL DIFF 19; MONOCYTES, MANUAL DIFF 4; NEUTROPHILS, MANUAL DIFF 77
--- NOTE | 2024-10-06 06:00 | NUR ---
PATIENT IS RESTING IN BED WATHCING TV. PATIENT ASSISTED BACK TO BED BY MINILAB OPERATOR. PATIENT DENIES ANY NEEDS. CALL LIGHT IN REACH.
--- NOTE | 2024-10-06 08:44 | NUR ---
Patient was sitting up in bed. They requested sleeping pills to HERMINIO Allan and again to FLETCHER and was denied by RN.
--- NOTE | 2024-10-06 09:30 | NUR ---
Patient awake in bed, alert and oriented x3. Patient irritable with cares. Pt states she did not sleep well and she wants a sleeping pill this morning. Education provided to patient regarding not taking sleep aids during the day, pt unhappy she is unable to get medication for this. Patient has no notable distress at this time. Encouraged patient to call if she has further needs.
--- NOTE | 2024-10-06 12:22 | NUR ---
CPOX reattached. Patient requested a shower, will be done at 1300.
[2024-10-06] MEDS ORDERED: TRAZODONE HCL 50 MG TAB PO PRN (13:15)
--- NOTE | 2024-10-06 13:40 | NUR ---
IN TO SEE PATIENT, CARES ARE BEING DONE BY NURSING STAFF. WILL RETURN TO SPEAK WITH HER LATER THIS AFTERNOON.
[2024-10-06] MEDS ORDERED: BACTRIM DS TAB1 EACH PO ×3 (15:19→15:21)
[2024-10-06] MEDS ORDERED: PREDNISONE20 MG PO ×2 (15:19)
--- NOTE | 2024-10-06 15:27 | NUR ---
Patient showered with set up assistance. Bed linens changed. New purewick set at 1400.
[2024-10-06] MEDS ORDERED: MELATONIN 3 MG TAB PO SCH (21:00)
[2024-10-07] MEDS ORDERED: predniSONE 20 MG TAB PO SCH (09:00)
== END 2024-10-06 15:53 | DRG 872 ==
LOC: ED 05:24 → MS 05:25
PROVIDERS: Emergency Medicine; ADMIT Student in an Organized Health Care Education/Training Program; ATTEND Student in an Organized Health Care Education/Training Program
DX: A41.51 Sepsis due to Escherichia coli [E. coli] (principal); N12 Tubulo-interstitial nephritis, not specified as acute or chronic; J44.1 Chronic obstructive pulmonary disease with (acute) exacerbation; J96.11 Chronic respiratory failure with hypoxia; F15.90 Other stimulant use, unspecified, uncomplicated; I10 Essential (primary) hypertension; Z66 Do not resuscitate; F17.200 Nicotine dependence, unspecified, uncomplicated; Z99.81 Dependence on supplemental oxygen; Z88.1 Allergy status to other antibiotic agents; Z88.8 Allergy status to other drugs, medicaments and biological substances; Z88.6 Allergy status to analgesic agent; Z88.5 Allergy status to narcotic agent
CPT/HCPCS: 36415; 71045; 80048; 80053; 80307; 81001; 82803; 83605; 83735; 85025; 85060; 87040; 87077; 87088; 87186; 87502; 93005; 93010; 94640; 94668; 94760; 94762; 96365; 96372; 96374; 96375; 96376; 97161; 97165; 97530; 99285-25; A9270; G0378; J0696; J1650; J2919; J7030; J7121; U0002

== ENCOUNTER 2024-10-09 20:21 | Emergency (ER) | payer OTHER, MEDICARE ==
[~2024-10-09] VITALS: Ht 162.6 cm; Wt 119.7 kg
--- OUTSIDE RECORDS SUMMARY | ~2024-10-09 | XMS | Continuity of Care Document ---
Demographics + + + | Address | [address] | | | [place] [address] | + + + | Preferred Language | Unknown | + + + | Marital Status | Never | + + + | Christianity Affiliation | Unknown | + + + | Race | White | + + + | Ethnic Group | Not or | + + + Author + + + | Author | [facility] | + + + | Organization | [facility] | + + + | Address | [address] | | | [place] [address] | + + + | Phone | | + + + Care Team Providers + + + + | Care Boil Off Machine Operator Cloth Name | Role | Phone | + [...] Tablet | | + + + + Problems No information. Procedures No information. Results/Labs +--------+--------+ +---------+--------+---------+ | test | date | facility | value | unit | notes | +--------+--------+ +---------+--------+---------+ + + | DRUG, SCRN PAIN MGT-URINE [...] + + + + + + | [id number] | + + + + + +------+---------+ + | | 2024-07-23 | [facility] | 46 | ng/mL | (missing) | | [id number] | 09:37 | Medical | | | [...] NEGATIVE | (missing) | (missing) | | [id number] | 09:37 | Medical | ng/mL | [...] facility | + + + + | 2024-07-24 [...]
[~2024-10-09 20:21] MED LIST changes: +DULCOLAX10 MG PR; +FLEET ENEMA133 ML PR; +MILK OF MA400 MG/5 M PO; +NALOXONE H NAS; +NALOXONE H0.4 MG/12; +ONDANSETRON HCL4 MG PO
[2024-10-09] MEDS ORDERED: HYDROCODONE/ACETA 5/325 TAB PO ONE (21:00)
[2024-10-09 22:30] VITALS: BP 151/87
== END 2024-10-09 22:30 | disposition home or self-care (01) ==
LOC: ED 20:21
DX: S50.01XA Contusion of right elbow, initial encounter (principal); I10 Essential (primary) hypertension; J44.9 Chronic obstructive pulmonary disease, unspecified; J45.909 Unspecified asthma, uncomplicated; F17.200 Nicotine dependence, unspecified, uncomplicated; Z88.1 Allergy status to other antibiotic agents; Z88.6 Allergy status to analgesic agent; Z88.5 Allergy status to narcotic agent; Z88.8 Allergy status to other drugs, medicaments and biological substances; Z79.899 Other long term (current) drug therapy; W18.30XA Fall on same level, unspecified, initial encounter
CPT/HCPCS: 73080; 73110; 99283

== ENCOUNTER 2025-02-16 11:54 | Emergency (ER) | payer MEDICARE, OTHER ==
[~2025-02-16] VITALS: Ht 162.6 cm; Wt 119.0 kg
[2025-02-16 15:35] VITALS: BP 177/96
--- NOTE | 2025-02-18 07:44 | EKG ---
[facility] [address] [facility] [address] [place] [address] Signed Sinus tachycardia with premature atrial complexes Cannot rule out Anterior infarct , age undetermined Abnormal ECG When compared with ECG of 03-OCT-2024 05:31, No significant change was found Confirmed by Deandre Joshua MD ([id number]) on 02/18/2025 7:44:31 AM Electronically Signed By: DEANDRE JOSHUA MD 02/18/25 0744 PATIENT NAME: CHASTITY BONILLA KUSUM Electrocardiogram DATE OF : 58 PHYSICIAN: DEANDRE JOSHUA MD REPORT #: [id number] REPORT IS CONFIDENTIAL AND NOT TO BE RELEASED WITHOUT AUTHORIZATION
== END 2025-02-16 15:35 | disposition home or self-care (01) ==
LOC: ED 11:54
DX: R47.81 Slurred speech (principal); M25.512 Pain in left shoulder; J44.89 Other specified chronic obstructive pulmonary disease; I10 Essential (primary) hypertension; F17.200 Nicotine dependence, unspecified, uncomplicated; Z79.899 Other long term (current) drug therapy; Z79.52 Long term (current) use of systemic steroids; Z88.1 Allergy status to other antibiotic agents; Z88.5 Allergy status to narcotic agent; Z88.8 Allergy status to other drugs, medicaments and biological substances
CPT/HCPCS: 93005; 93010; 99285

== ENCOUNTER 2025-03-03 09:56 | Inpatient (IN) | payer MEDICARE, OTHER ==
[~2025-03-03] VITALS: Ht 162.6 cm; Wt 115.3 kg
[2025-03-03 11:13] LABS: BASOPHILS 0.5 % (0.1-1.2); EOSINOPHILS 1.6 % (0.7-5.8); HEMATOCRIT 42.3 % (34.1-44.9); HEMOGLOBIN 13.1 g/dL (11.2-15.7); MCH 26.7 PG (25.6-32.2); MCV 86.2 fL (79.4-94.8); MONOCYTES 7.4 % (4.7-12.5); NEUTROPHILS 67.1 % (34.0-71.1); PLATELET COUNT 300 K/uL (182-369); RBC 4.91 M/uL (3.93-5.22)
[2025-03-03 11:29] LABS: ALBUMIN 2.9 g/dL (3.4-5.0); ALBUMIN/GLOBULIN RATIO 0.66 (1.1-2.4); BILIRUBIN, TOTAL 0.6 mg/dL (0.2-1.0); BUN/CREATININE RATIO 13.95 (6.0-28.6); CALCIUM 9.2 mg/dL (8.5-10.1); CREATININE, SERUM 0.86 mg/dL (0.55-1.02); PROTEIN, TOTAL 7.3 g/dL (6.4-8.2)
[2025-03-03] MEDS ORDERED: LIDOCAINE & ANTACID 35 ML BTL PO ONE (12:00)
[2025-03-03] MEDS ORDERED: HYDROCODONE/ACETA 5/325 TAB PO ONE (12:00)
[2025-03-03] MEDS ORDERED: ondansetron HCL 4 MG/2 ML VIAL IV ONE (12:00)
[2025-03-03] MEDS ORDERED: HYDROmorphone HCL 1 MG/ML SYR IV PRN ×3 (12:45→20:00)
[2025-03-03] MEDS ORDERED: LIDOCAINE HCL 4% 1 EACH PATCH TD ONE (16:30)
[2025-03-03] MEDS ORDERED: ALBUTEROL/IPRATROPIUM 3 ML NEB INH ONE (16:45)
--- NOTE | 2025-03-03 17:50 | NUR ---
THIS RN AND APDMAJA RN TO ED TO RETRIEVE PATIENT. PATIENT ESCORTED TO MED FLOOR VIA STRETCHER. PATIENT UNABLE TO MOVE HERSELF TO HOSPITAL BED. MAX ASSIST X4 TO MOVE PATIENT FROM STRETCHER TO HOSPITAL BED. VS AND WT OBTAINED AND RECORDED. PATIENT IS ON 3L OXYMASK. CPOX PLACED. THIS RN REMAINS IN ROOM TO DO ADMISSION.
[2025-03-03 17:57] VITALS: BP 116/64
--- NOTE | 2025-03-03 18:20 | NUR ---
WHILE RETRIEVING PATIENT'S CELL PHONE FROM HER PURSE, THIS RN SEES GLASS SHAPED PIPE WITHIN A PACK OF CIGARETTES AND A LARGE CIGARETTE AND FILTER CHIEF INSPECTOR. PATIENT PURSE/BELONGINGS/CAR KEYS ALL LOCKED IN LOCKED BOX AT THIS TIME. CHARGE NURSE TORRI NOTIFIED.
--- NOTE | 2025-03-03 18:40 | NUR ---
PATIENT'S OXYGEN TITRATED FROM TO 2L AT THIS TIME PATIENT IS SUSTAINING SPO2 >99% ON CPOX.
[2025-03-03] MEDS ORDERED: ALBUTEROL SULFATE 0.083% 3 ML VIAL INH PRN (18:45)
--- NOTE | 2025-03-03 18:49 | NUR ---
ADMISSION COMPLETED. PATIENT HAD 2 IV'S - R HAND AND R AC. IV IN R HAND WAS NOT PATENT AND WAS PAINFUL, IV REMOVED AND WRAPPED IN GAUZE AND COBAN, PATIENT VERBALIZES UNDERSTANDING OF REMOVAL. IV TO RIGHT AC FLUSHES WNL AND SALINE LOCKED AT THIS TIME. PATIENT IS PLACED ON BEDSIDE CPOX, REMAINS ON 3L VIA OXYMASK. PATIENT'S SPO2 SUSTAINS 98%. PATIENT COMPLAINS OF 8/10 TO HER LEFT SIDE AND THAT SHE IS HUNGRY AND THIRSTY. ICE WATER AND SANDWICH BOX OBTAINED. PATIENT IS EATING AND DRINKING WITHOUT ISSUE WHILE USING HER CELL PHONE. PATIENT DECLINES ANSWERING SUICIDE ASSESSMENT. PATIENT HAS REDNESS TO HER GROIN, PANNUS, AND BILAT BREASTS. SHE REPORTS SHE HAS BEEN USING A CREAM AT HOME. PUREWICK PLACED AND RECORDED. PATIENT HAS YET TO VOID. PATIENT LUNG SOUNDS ARE CLEAR BUT DIMINISHED. PRIOR TO EATING, PATIENT REPORTS THAT SHE FEELS SHE CANNOT BREATHE. PATIENT ENCOURAGE TO TAKE SLOW, DEEP BREATHS. PATIENT'S SPO2 SUSTAINS>98% THROUGHOUT. PATIENT CALMS WITH EATING AND HAS NO COMPLAINTS OF PAIN AT THIS TIME. BED ALARM ON, BED IN LOWEST POSITION, PATIENT DECLINES COVERS AT THIS TIME BECAUSE SHE FEELS WARM. NO OTHER REQUESTS. CALL LIGHT AND PERSONAL BELONGINGS IN REACH.
--- NOTE | 2025-03-03 18:59 | NUR ---
NIO PLACED FOR ANTIFUNGAL POWDER.
[2025-03-03] MEDS ORDERED: ondansetron HCL 4 MG/2 ML VIAL IV PRN (19:00)
--- NOTE | 2025-03-03 19:18 | NUR ---
REPORT RECEIVED FROM HERMINIO BORREGO. PATIENT SITTING UP IN BED EATING. PATIENT WITHOUT ANY NEEDS AT THIS TIME. CALL LIGHT AND PERSONAL BELONGINGS ARE WITHIN REACH. CPOX AT BEDSIDE.
[2025-03-03 19:55] VITALS: BP 148/91
[2025-03-03] MEDS ORDERED: OXYCODONE HCL 5 MG TAB PO PRN (20:00)
--- NOTE | 2025-03-03 20:00 | NUR ---
PATIENT CALLED REPORTING SIDE PAIN. THIS RN IN ROOM TO ASSESS PATIENT. VITAL SIGNS TAKEN AND ARE STABLE. PATIENT RESTING WITH EYES CLOSED WHILE THIS RN STILL IN ROOM. EVEN AND UNLABORED RESPIRATIONS NOTED. CALL LIGHT AND PERSONAL BELONGINGS ARE WITHIN REACH.
[2025-03-03] MEDS ORDERED: LIDOCAINE PATCH REMOVAL 1 EA TD SCH ×2 (21:00)
[2025-03-03] MEDS ORDERED: MICONAZOLE NITRATE 1 EA BTL TOP SCH (21:00)
--- NOTE | 2025-03-03 21:03 | NUR ---
PATIENT SITTING UP IN BED WATCHING TV. PATIENT REPORTS 9/10 PAIN. PATIENT IS 89% ON ROOM AIR AT THIS TIME. CPOX AT BEDSIDE. PATIENT WITHOUT FURTHER NEEDS. CALL LIGHT AND PERSONAL BELONGINGS ARE WITHIN REACH.
--- NOTE | 2025-03-03 22:32 | NUR ---
PATIENT MEDICATED PER EMAR. PATIENT IS 89% ON 1.5LPM AT THIS TIME. CPOX AT BEDSIDE. PATIENT WITHOUT FURTHER NEEDS AT THIS TIME. CALL LIGHT AND PERSONAL BELONGINGS ARE WITHIN REACH.
--- NOTE | 2025-03-03 22:43 | NUR ---
CPOX ALARMING. SPO2 76%, APNEA NOTED, INCREASES BACK TO 91%. OXYGEN BY OXYMASK IN PLACE.
--- NOTE | 2025-03-03 23:40 | NUR ---
OXY MASK PLACED BACK ON PATIENT'S FACE. PATIENT WITHOUT FURTHER NEEDS AT THIS TIME. CALL LIGHT AND PERSONAL BELONGINGS ARE WITHIN REACH. CPOX AT BEDSIDE.
[2025-03-04] VITALS (12 sets, daily range): BP systolic 134–154; BP diastolic 63–91
--- NOTE | 2025-03-04 00:55 | NUR ---
PATIENT RESTING IN BED WITH HER EYES CLOSED. EVEN AND UNLABORED RESPIRATIONS NOTED. CALL LIGHT AND PERSONAL BELONGINGS ARE WITHIN REACH.
--- NOTE | 2025-03-04 01:30 | NUR ---
PATIENT UP TO BEDSIDE COMMODE VIA 2 PERSON ASSIST FOR SAFETY. PATIENT REFUSED FOR RN TO WIPE AFTER PATIENT FINISHED WITH COMMODE AND TRANSFERED BACK TO BED. RN'S X2 ATTEMPTED TO REPOSITION FOR OPTIMAL PROFUSSION, BUT PATIENT DECLINED. OXYGEN PLACED BACK ON PATIENT. PATIENT WITHOUT FURTHER NEEDS. COMMODE EMPTIED. CALL LIGHT AND PERSONAL BELONGINGS ARE WITHIN REACH. VITAL SIGNS TAKEN AND ARE STABLE. BED ALARM ACTIVATED.
[2025-03-04] MEDS ORDERED: ACETAMINOPHEN 325 MG TAB PO SCH (02:00)
--- NOTE | 2025-03-04 03:36 | NUR ---
PATIENT RESTING IN BED ON HER LEFT SIDE WITH HER EYES CLOSED. EVEN AND UNLABORED RESPIRATIONS NOTED. CALL LIGHT AND PERSONAL BELONGINGS ARE WITHIN REACH. CPOX AT BEDSIDE.
--- NOTE | 2025-03-04 04:11 | NUR ---
PATIENT RESTING IN BED WITH HER EYES CLOSED. EVEN AND UNLABORED RESPIRATIONS NOTED. CALL LIGHT AND PERSONAL BELONGINGS ARE WITHIN REACH. CPOX AT BEDSIDE.
[2025-03-04 05:39] LABS: ANION GAP 7.6 (7-21); BUN/CREATININE RATIO 12.04 (6.0-28.6); CALCIUM 9.2 mg/dL (8.5-10.1); CREATININE, SERUM 0.83 mg/dL (0.55-1.02); POTASSIUM 4.6 mmol/L (3.5-5.1)
[2025-03-04 05:53] LABS: BASOPHILS 0.5 % (0.1-1.2); EOSINOPHILS 1.5 % (0.7-5.8); HEMATOCRIT 42.1 % (34.1-44.9); HEMOGLOBIN 12.9 g/dL (11.2-15.7); LYMPHOCYTES 13.5 % (19.3-51.7); MCHC 30.6 g/dL (32.2-35.5); MCV 88.1 fL (79.4-94.8); MONOCYTES 4.6 % (4.7-12.5); NEUTROPHILS 79.5 % (34.0-71.1); PLATELET COUNT 348 K/uL (182-369); RBC 4.78 M/uL (3.93-5.22)
--- NOTE | 2025-03-04 06:00 | NUR ---
KULDIP PENA PLACED. PATIENT POSITIONED TO COMFORT. PATIENT REPORTS THAT SOMEONE IS COMING OVER TODAY TO FIX HER WHEELCHAIR. PATIENT'S CELL PHONE IS DISCONTECTED. PATIENT GAVE VERBAL PERMISSION TO CALL FERNANDO WITH "[employer]" TO LET HER KNOW SHE IS IN THE HOSPITAL AND NOT ABLE TO MEET HER THERE. PATIENT ALSO STATES THAT SHE IS NOT SURE IF HER CAREGIVER WILL GO OVER THERE BECUASE "SHE NORMALLY DOESN'T GO OVER WITHOUT ME BEING THERE". CALL PLACED TO FERNANDO, BUT NO ANSWER. WILL PASS ON TO DAY SHIFT.
--- NOTE | 2025-03-04 07:18 | NUR ---
REPORT RECEIVED FROM HERMINIO AVLDOVINOS. PATIENT IS RESTING IN BED WITH EYES CLOSED, RR EVEN AND UNLABORED. 3L OXYMASK IN PLACE WITH CPOX AT BEDSIDE. CALL LIGHT AND PERSONAL BELONGINGS IN REACH.
[2025-03-04] MEDS ORDERED: ondansetron HCL 4 MG/2 ML VIAL IV PRN (08:15)
[2025-03-04] MEDS ORDERED: CYCLOBENZAPRINE HCL 10 MG TAB PO PRN (08:15)
--- NOTE | 2025-03-04 08:27 | NUR ---
Called Bree from [facility]. She planned on visiting Shelby today to review her wc as it has issues. Shelby requested we call Bree to let her know she is in the hospital. Bree will call Shelby.
[2025-03-04 08:34] LABS: PH, VENOUS 7.367 (7.31-7.41)
[2025-03-04] MEDS ORDERED: ALLOPURINOL100 MG PO ×2 (08:39)
[2025-03-04] MEDS ORDERED: NALOXONE HCL4 MG NAS ×2 (08:40)
[2025-03-04] MEDS ORDERED: DOXEPIN HCL10 MG PO ×2 (08:41)
--- NOTE | 2025-03-04 08:43 | NUR ---
UPON ENTERING ROOM, PATIENT HAS OXYMASK ON HER FOREHEAD AND THE BEDSIDE CPOX IS 85%. PATIENT IS RESTING WITH EYES CLOSED, MOUTH OPEN AND AUDIBLE SNORE. OXYMASK REPLACED, PATIENT'S SPO2 INCREASES TO SUSTAIN>89%. MEDICATION ADMINISTERED, SEE MAR. PATIENT IS DIFFICULT TO ROUSE, REQUIRING STATING HER NAME MULTIPLE TIMES AND NUDGING HER SHOULDER. PATIENT EVENTUALLY ROUSES ENOUGH TO TELL THIS RN HER PAIN LEVEL IS 5/10 IN HER LEFT SIDE AND THAT SHE WOULD TAKE HER SCHEDULED 650MG TYLENOL. PATIENT TAKES A DRINK OF WATER FIRST AND SWALLOWS WITHOUT ISSUE. PATIENT SWALLOWS MEDICATION WITHOUT ISSUE AND THEN CONTINUES DROWSING. PATIENT HAS A COOKIE IN HER HAND AND ANOTHER IN A ZIPLOC BAG IN HER LAP. PATIENT ALSO HAS INCENTIVE SPIROMETER IN HER LAP, BREAKFAST TRAY ON THE BEDSIDE TABLE, A SLICE OF PIZZA IN TINFOIL, AND AN EMPTY BOTTLE OF MOUNTAIN DEW. PATIENT CONTINUES TO REST AT THIS TIME, WENDY FROM RESPIRATORY THERAPY ARRIVES.
[2025-03-04] MEDS ORDERED: LIDOCAINE HCL 4% 1 EACH PATCH TD SCH (09:00)
[2025-03-04] MEDS ORDERED: ENOXAPARIN SODIUM 40 MG/0.4 ML SYR SUB-Q SCH (09:00)
--- NOTE | 2025-03-04 09:59 | NUR ---
INTO SEE PATIENT. PERSONAL HEALTH INFORMATION REVIEWED. PATIENT LIVES IN AN APARTMENT WITH A RAMP TO GET INTO. STATES SHE HAS SOME DIFFCULTY FROM TIME TO TIME. USES WALKER, CANE AND WHEELCHAIR FOR ASSISTANCE. HAS OXYGEN AND A CPAP AT HOME THROUGH [employer]. PATIENT DRIVES AT BASELINE. SHE LIVES ALONE. DOES STATE HAVING DIFFCULTY WITH UTILITIES AND FOOD. TALKED WITH HER ABOUT [employer], [employer] AND [employer]. SHE IS AWARE OF RESOURCES IN TOWN. SHE WILL NEED A RIDE AT TIME OF DISCHARGE. NO FUTHER CM NEEDS AT THIS TIME.
--- NOTE | 2025-03-04 10:20 | NUR ---
PATIENT IS IN BED SLEEPING AT THIS TIME, MANAGER OF FINANCIAL REPORTING CHARTED VITALS AND I&O, CALL LIGHT WITH IN REACH. REFUSED A WASH CLOTH FOR WASHING. I WILL ASK AGAIN LATER WHEN SHE IS MORE ALERT IF SHE WOULD LIKE A BED BATH. JEWELIED JEAN BHAGATAIJAVIER, NOTHING ELSE NEEDED AT THIS TIME.
--- NOTE | 2025-03-04 10:43 | NUR ---
UR CLINICAL REVIEW: 2MN ANICETO, MEETS INPT FOR RIB FRACTURES IV ANALGESIC, DIMINISHED LUNG SOUNDS, TACHYCARDIA UP TO 122 MEDICARE INPT 03/04/2025 @ 0813 ORDER MATCHES REG NO AUTH REQUIRED PER MEDICARE RULES PLAN TO DC TO HOME WHEN MEDICALLY STABLE
--- NOTE | 2025-03-04 10:45 | NUR ---
BED BATH PROVIDED TO PATIENT'S FRONT SIDE. SHAMPOO CAP IN PLACE. ARM PITS SCRUBBED, UNDER BILAT BREASTS WASHED, DRIED AND DESENEX POWDER PLACED. STOMACH AND UNDER PANNUS WASHED, DRIED, AND DESENEX POWDER PLACED. LEGS WASHED AND DRIED. FRESH GOWN PLACED. WOUND TO PATIENT'S LLQ IS SCABBED WITH REDDENED MICHAEL-WOUND. THE WOUND TO PATIENT'S MONS PUBIS IS SCABBED WITH AN OPEN CENTRE AND PURULENT DRAINAGE. BOTH WOUNDS LEFT OPEN TO AIR AT THIS TIME OCCUPATIONAL AND PHYSICAL THERAPY ARRIVE IN HOPES OF GETTING PATIENT OUT OF BED. PATIENT'S PUREWICK REMAINS IN PLACE, ALTHOUGH ONLY COLLECTING WHAT LOOKS LIKE HAVE OF PATIENT'S URINE THE BED IS SATURATED. PATIENT DOES NOT ASSIST IN BED BATH, WILL NOT LIFTS ARMS FOR THIS RN TO CLEANSE. PATIENT CONTINUES TO REST WITH EYES CLOSED, 3LNC IN PLACE WITH AUDIBLE SNORE. PHYSICAL AND OCCUPATIONAL THERAPY REMAIN IN ROOM WITH PATIENT AT THIS TIME.
--- NOTE | 2025-03-04 11:55 | NUR ---
PATIENT IS UP IN RECLINER AFTER WORKING WITH PHYSICAL THERAPY AND OCCUPATIONAL THERAPY. PUREWICK IS OUT, CHUX IS DOWN ON CHAIR. PATIENT REMAINS DROWSY, RESTING WITH BLE ELEVATED AND EYES CLOSED, MOUTH OPEN, AUDIBLE SNORE. CPOX REMAINS AT CHAIRSIDE. ALLEVYN PLACED TO WOUND ON PATIENT'S MONS PUBIS. PATIENT DOES NOT RESPOND TO THIS RN SAYING HER NAME. 3LNC IN PLACE. CALL LIGHT AND PERSONAL BELONGINGS IN REACH.
[2025-03-04] MEDS ORDERED: PHARMACY RENAL DOSE ADJUSTMENT 1 DOSE MISC PO SCH (12:00)
[2025-03-04] MEDS ORDERED: ALBUTEROL/IPRATROPIUM 3 ML NEB INH SCH (12:00)
--- NOTE | 2025-03-04 13:02 | NUR ---
MED REC COMPLETE
--- NOTE | 2025-03-04 15:01 | NUR ---
PATIENT CONTINUES TO BE DROWSY. PATIENT WAKES WHEN THIS RN STATES HER NAME. PATIENT ENCOURAGED TO DRINK, WHICH SHE DOES, AND THEN TAKE SCHEDULED TYLENOL, WHICH SHE DOES WITHOUT ISSUE. THIS RN ASKS WHY PATIENT IS SO SLEEPY TODAY, PATIENT STATES "THIS IS THE WAY I ALWAYS AM AFTER I HAD A BIG DAY LIKE YESTERDAY." PATIENT IS UNABLE TO TO TELL THIS RN WHAT HER PAIN LEVEL IS. PATIENT STATES "I DON'T KNOW" WHEN ASKED HOW HER PAIN IS AND WHAT HER PAIN LEVEL IS. PATIENT IS UP IN THE RECLINER WITH BLE ELEVATED. PATIENT ASSISTED TO TRANSFER FROM RECLINER TO BED WITH FWW, THIS RN, FLETCHER GUARDADO, AND PHYSICAL THERAPIST. PATIENT REQUIRES MAX ASSIST TO TRANSFER. PATIENT SITS ON EDGE OF BED AND STATES "I NEED TO USE THE BATHROOM." BSC PLACED ON PATIENT'S RIGHT SIDE, PATIENT TRANSFERS HERSELF WITH MINIMAL ASSIST AND VOIDS. FWW USED TO STAND UP FROM BSC, DEBBY BYNUM PROVIDES MICHAEL-CARE. BED BATH PERFORMED TO PATIENT'S BACKSIDE, BACK, AND SHOULDERS. DEODERANT APPLIED TO UNDERARMS. PATIENT REQUIRES MAX ASSIST X1 TO GET HER LEGS INTO BED. NEW PUREWICK PLACED. THICK BARRIER CREAM APPLIED TO SCABBED AREA ON PATIENT'S LLQ. PATIENT STATES THAT SHE BURNED THIS AREA WITH A HEAT PAD, DEVELOPED A BLISTER WHICH SHE POPPED, AND IT HAS TURNED INTO THIS SCABBED AREA. PATIENT IS WEARING NASAL CANULA O2 THROUGHOUT, INITIALLY ON 3L OF O2 WITH SPO2 SUSTAINING>94% ON CPOX. PATIENTS OXYGEN IS TITRATED TO 2L AND THEN 1L, WITH PATIENT SUSTAINING>90% ON CPOX. PATIENT IS NOW RESTING IN BED AND BACK TO BEING DROWSY. PATIENT HAS AUDIBLE SNORE. NO REQUESTS, CALL LIGHT AND PERSONAL BELONGINGS IN REACH.
--- NOTE | 2025-03-04 16:09 | NUR ---
PATIENT IS USING THE ACAPELLA WITH WENDY FROM RESPIRATORY THERAPY AND COMPLAINS OF LEFT SIDED RIB PAIN SHE RATES 7/10. WHEN THIS RN ARRIVES PATIENT IS RESTING WITH EYES CLOSED, RR EVEN AND UNLABORED WITH 1LNC IN PLACE. ICE PACK PROVIDED AND PLACED ON LEFT SIDE. PATIENT DOES NOT ROUSE WITH PLACEMENT. CALL LIGHT AND PERSONAL BELONGINGS IN REACH.
--- NOTE | 2025-03-04 17:38 | NUR ---
PATIENT IS AWAKE AND ALERT, SHE IS COMPLAINING OF LEFT RIB PAIN 10/10. ICE PACK REMAINS IN PLACE. THIS RN SPEAKS WITH PATIENT ABOUT BEING AWAKE, SHE HAS BEEN DROWSY ALL DAY. PATIENT IS REPOSITIONED BY THIS RN AND FLETCHER GUARDADO. PATIENT SITS IN BED WITH HOB ELEVATED AND SUPPER TRAY IN FRONT OF HER. PATIENT ALSO STATES THAT SHE HAS PIZZA HER FRIEND BROUGHT HER LAST NIGHT. PATIENT AGREEABLE TO EATING AND REMAINING AWAKE FOR AWHILE BEFORE RECEIVING PRN PAIN MEDICATION WHICH IS SEDATING. NO OTHER REQUESTS, CALL LIGHT AND PERSONAL BELONGINGS IN REACH.
--- NOTE | 2025-03-04 17:55 | NUR ---
PATIENT EATS APPROXIMATELY 50% OF DINNER, REMAINS RESTING IN BED WITH HOB ELEVATED AND 1LNC IN PLACE. PATIENT HAS EYES CLOSED, MOUTH OPEN, RR EVEN AND UNLABORED. CALL LIGHT AND PERSONAL BELONGINGS IN REACH.
--- NOTE | 2025-03-04 18:24 | NUR ---
PATIENT CONTINUES RESTING IN BED WITH HOB ELEVATED, EYES CLOSED, RR EVEN AND UNLABORED WITH MOUTH OPEN. 1LNC IN PLACE WITH CPOX AT BEDSIDE. BED IS IN LOWEST POSITION, CALL LIGHT AND PERSONAL BELONGINGS ARE IN REACH.
--- NOTE | 2025-03-04 18:56 | NUR ---
PATIENT IS IN BED AT THIS TIME, BIOLOGICAL SCIENCE AIDE CHARTED VITALS AND I&O'S, CHECKED PATIENTS ADRIANNE PADS AND THEY ARE DRY, PUREWICK IS WORKING, PATIENT IS TALKING ABOUT SOME KIDS GETTING KIDNAPPED AND IS CRYING HYSTERICALLY NOW. HERMINIO BORREGO NOTIFIED, CALL LIGHT WITH IN REACH AND NOTHING ELSE NEEDED AT THIS TIME.
[2025-03-04] MEDS ORDERED: BUDESONIDE 0.5 MG/2 ML VIAL INH SCH (20:00)
--- NOTE | 2025-03-04 21:01 | NUR ---
RAW JUICE WEIGHER OBTAINED VITALS AND I&O. PUREWICK CANNISTER EMPTIED. PT STATES NO NEEDS AT THIS TIME. CALL LIGHT WITHIN REACH.
--- NOTE | 2025-03-04 21:36 | NUR ---
pt SLEEPING, AWAKENS TO VOICE. RATES PAIN 8/10 ON LEFT SIDE/RIBS. PRN OXYCODONE AND SCHEDULED TYLENOL ADMINISTERED. pt INCONTINENT OF LARGE AMT URINE, FULL BED CHANGE. NEW BRIEF, CHUX, MICHAEL PAD, AND PUREWICK PLACED. ICE PACK TO LEFT SIDE FOR PAIN. 1L OXYGEN BY NC IN PLACE, CPOX ON. CALL LIGHT IN REACH.
--- NOTE | 2025-03-04 23:02 | NUR ---
CALL LIGHT ANSWERED. pt UP TO BSC FOR VOID. REFUSES TO USE WALKER, BENDS OVER AND HOLDS ONTO COMMODE TO TRANSFER, TRANSFERS MOSTLY INDEPENDENT WITH ASSISTANCE WITH LEGS GETTING BACK INTO BED. 2PA TO BOOST pt IN BED. NEW BRIEF, JEAN PLACED. CALL LIGHT AND PERSONAL SUPPLIES WITHIN REACH. BED ALARM ON.
--- NOTE | 2025-03-05 00:40 | NUR ---
CALL LIGHT ANSWERED. pt DOESN'T STATE NEEDS. IN ROOM TO CHECK ON pt. RESTING IN BED WITH EYES CLOSED, SNORING. NO DISTRESS NOTED.
--- NOTE | 2025-03-05 02:47 | NUR ---
pt SLEEPING, AWAKENS TO VOICE. COMPLAINS OF 8/10 RIB PAIN WHEN ASSESSED. PRN AND SCHEULDED PAIN MEDICATIONS ADMINISTERED FOR PAIN CONTROL. CALL LIGHT IN REACH.
[2025-03-05 05:17] LABS: BASOPHILS 0.6 % (0.1-1.2); EOSINOPHILS 2.1 % (0.7-5.8); HEMATOCRIT 40.8 % (34.1-44.9); HEMOGLOBIN 12.4 g/dL (11.2-15.7); LYMPHOCYTES 23.2 % (19.3-51.7); MCHC 30.4 g/dL (32.2-35.5); MCV 88.9 fL (79.4-94.8); MONOCYTES 6.7 % (4.7-12.5); NEUTROPHILS 66.8 % (34.0-71.1); PLATELET COUNT 328 K/uL (182-369); RBC 4.59 M/uL (3.93-5.22)
[2025-03-05 05:28] LABS: ANION GAP 8.1 (7-21); BUN/CREATININE RATIO 11.84 (6.0-28.6); CALCIUM 9.3 mg/dL (8.5-10.1); CREATININE, SERUM 0.76 mg/dL (0.55-1.02); MAGNESIUM 1.8 mg/dL (1.8-2.4); POTASSIUM 4.1 mmol/L (3.5-5.1)
--- NOTE | 2025-03-05 06:21 | NUR ---
CHECKED ON pt. RESTING IN BED WITH EYES CLOSED, BREATHING UNLABORED. SPO2 WNL, 1L OXYGEN IN PLACE.
[2025-03-05 06:27] VITALS: BP 143/70
--- NOTE | 2025-03-05 06:48 | NUR ---
CALL LIGHT ANSWERED, ICE WATER PROVIDED. VSS. SBA TO BSC FOR VOID AND BACK TO BED, NEW PUREWICK PLACED. ASSESSMENT COMPLETE. pt RATES PAIN 20/10 IN RIBS. PRN MEDICATION ADMINISTERED. CALL LIGHT AND PERSONAL SUPPLIES IN REACH.
[2025-03-05 06:49] VITALS: BP 143/70
--- NOTE | 2025-03-05 07:23 | NUR ---
REPORT RECEIVED FROM HERMINIO CONCEPCION. PATIENT IS RESTING IN BED WITH EYES CLOSED, MOUTH OPEN RR EVEN AND UNLABORED. 1LNC IN PLACE, CPOX AT BEDSIDE. CALL LIGHT AND PERSONAL BELONGINGS IN REACH.
--- NOTE | 2025-03-05 08:34 | NUR ---
MEDICATION ADMINISTERED, SEE MAR. PATIENT IS UP IN RECLINER WITH BLE ELEVATED AND EATING BREAKFAST. SHE IS AWAKE, ALERT, AND ORIENTED TODAY, JUST COMPLETING RESPIRATORY THERAPY TREATMENT WITH ÁNGELA. PATIENT COMPLAINS OF LEFT SIDE/RIB PAIN RATED 5/10 AT THIS TIME. LIDOCAINE PATCH PLACED ORDERED AND PATIENT HAS FOLDED BLANKET TO USE FOR SPLINTING. PATIENT HAS NO REQUESTS AT THIS TIME, CALL LIGHT AND PERSONAL BELONGINGS IN REACH.
[2025-03-05] MEDS ORDERED: NICOTINE 14 MG/24 HR 1 EA TDSY TD SCH (09:00)
[2025-03-05 09:05] VITALS: BP 102/77
--- NOTE | 2025-03-05 09:13 | NUR ---
PATIENT IS IN HER CHAIR AT THIS TIME, THIS MORNING FLETCHER BOJORQUEZ ASSISTED ME IN GETTING PATIENT TO HER CHAIR FOR BREAKFAST. RAMAN CHARTED VITALS AND I&O'S, GOT THE FRESH ICE WATER, AND NOTHING ELSE NEEDED AT THIS TIME.
[2025-03-05 09:45] VITALS: BP 102/77
--- NOTE | 2025-03-05 10:01 | NUR ---
INTO SEE PATIENT. PATIENT CONCERNED ABOUT HER MOTORIZED WHEELCHAIR. [employer] CALLED. LEFT MESSAGE. PATIENT PERSON OF CONTACT NANDO CALLED STATES THE WHEELCHAIR NEEDS A NEW MOTOR. SHE STATES SHE WILL BE BY THE HOUSE LATER TO CHECK ON HER AFTER WORK. CHERRY CAREGIVER CALLED TO POTENTIALLY BE AT THE HOUSE WHEN SHE DISCHARGES. WILL CALL VAN WHEN SHE IS READY FOR DISCHARGE.
[2025-03-05] MEDS ORDERED: LIDOCAINE PAIN1 EACH TD ×2 (10:13)
[2025-03-05] MEDS ORDERED: OXYCODONE HCL5 MG PO ×2 (10:14)
[2025-03-05] MEDS ORDERED: TYLENOL EXTRA500 MG PO ×2 (10:14)
--- NOTE | 2025-03-05 11:10 | NUR ---
VISITED DURING SPIRITUAL CARE ROUNDS. PT APPEARED TO BE SLEEPING. DID NOT DISTURB. PROVIDED PRAYER.
--- NOTE | 2025-03-05 11:18 | NUR ---
CHERRY CAREGIVER TO MEET PATIENT AT HER HOUSE WITH WC VAN TO DROP HER OFF 1215. NO FUTHER CM NEEDS.
--- NOTE | 2025-03-05 15:45 | NUR ---
Received a call from Dr. Dawson from the ER. Shelby was discharge around noon and has returned to the ER wanting to readmit. Pt states the hospital did not provide her meds, he state paid cg only stayed until 2 pm, and she did not pay her cell phone bill so she does not have a cell phone. I called Karmen at [facility] they do not have anyone to go see or stay with Shelby. I called the ER back and I let the Dr. Dawson know this pt has care home medicaid for placement but [facility], and [facility] do not have beds open.Their admision people are gone at this time. The Health system admission people are also gone at this time of day. Pt does not have a qualifing medical condition at this time to readmit. I asked them to pass on to her to call me on Saturday and I will call to see about bed availability. I requested she call her state paid cg that met her at home. I am unsure if she has any cg hours left for this week. He also questioned what to do about her cell phone. I let him know I cannot fix this, he should remind her to pay her bill as soon as possible to restore service. Will fu on Saturday.
--- NOTE | 2025-03-08 10:00 | NUR ---
Attempted to call Shelby and I could not reach. Per Madisyn that worked with her in on Saturday, pt has wifi access to her phone and was able to make calls on Saturday. I contacted [facility] by email and then Elvia Kennedy her porter sample case to see if someone can go to [facility] home and assist her to call me. I will check for bed availability if I know where she wants to go and if she plans on staying. In the past I have sent Shelby places and she left ama within 1 hrs of her arrival. Elvia states she does not have anyone to go to [facility], but will make some calls.
--- NOTE | 2025-03-08 11:51 | NUR ---
Return a phone call to Elvia at [facility]. She is working from home, but will go see Shelby. I asked if Shelby's hours could be increased. Per Elvia, she has 39 hrs of cg service for 2 weeks. The main issues is Shelby cannot get around well without her wc which is broken. She is having issues walking with a walker due to her fx ribs. I let her know I will check for bed availability. Elvia will call me later. Update for the wc is Gabri[facility] will see pt around the 20 of March. They will provide a replacement,but this will take several weeks.
--- NOTE | 2025-03-08 13:30 | NUR ---
Called [facility] and [facility].They both have beds open. [facility] bed is in [place]. I faxed the chart to both for them to review. Ana Luisa from [facility] will visit pt in her home and evaluate tomorrow. I am unable to contact Shelby to confirm she is willing to be placed. Per Elvia at [facility], pts friend Neelima and her cg are both stating Shelby is wanting placement.
--- NOTE | 2025-03-08 16:52 | NUR ---
Called and left a message for Elvia as I did not recieve a response if she saw Shelby today.
== END 2025-03-05 12:10 | disposition home or self-care (01) | DRG 184 ==
LOC: ED 09:56 → MS 09:57
PROVIDERS: Emergency Medicine; ADMIT Student in an Organized Health Care Education/Training Program; ATTEND Student in an Organized Health Care Education/Training Program
DX: S22.42XA Multiple fractures of ribs, left side, initial encounter for closed fracture (principal); Z68.42 Body mass index [BMI] 45.0-49.9, adult; W18.30XA Fall on same level, unspecified, initial encounter; G89.11 Acute pain due to trauma; J44.9 Chronic obstructive pulmonary disease, unspecified; I10 Essential (primary) hypertension; M10.9 Gout, unspecified; E66.9 Obesity, unspecified; Z66 Do not resuscitate; R29.6 Repeated falls; Z88.1 Allergy status to other antibiotic agents; Z88.5 Allergy status to narcotic agent; Z88.8 Allergy status to other drugs, medicaments and biological substances; Z87.19 Personal history of other diseases of the digestive system; F32.A Depression, unspecified; F17.210 Nicotine dependence, cigarettes, uncomplicated; Z90.710 Acquired absence of both cervix and uterus; Z90.49 Acquired absence of other specified parts of digestive tract; Z98.890 Other specified postprocedural states; Z79.899 Other long term (current) drug therapy; Z99.81 Dependence on supplemental oxygen
CPT/HCPCS: 36415; 71045; 71260; 74177; 80048; 80053; 82803; 83735; 83880; 85025; 94640; 94667; 94668; 94762; 94799; 96376; 97162; 97166; A9270; G0378; J1171; J1650; J2405; Q9967

== ENCOUNTER 2025-03-05 15:21 | Emergency (ER) | payer MEDICARE, OTHER ==
[~2025-03-05] VITALS: Ht 162.6 cm; Wt 115.0 kg
[~2025-03-05 15:21] MED LIST changes: +ALLOPURINOL100 MG PO; +DOXEPIN HCL10 MG PO; +NALOXONE HCL4 MG NAS
[2025-03-05] MEDS ORDERED: OXYCODONE/APAP 5/325 TAB PO ONE (16:00)
[2025-03-05] MEDS ORDERED: OXYCODONE/ACETAMINOPHEN 1 TAB HOME.PACK PO ONE (17:45)
[2025-03-05 17:50] VITALS: BP 161/91
== END 2025-03-05 18:07 | disposition home or self-care (01) ==
LOC: ED 15:21
DX: S22.42XA Multiple fractures of ribs, left side, initial encounter for closed fracture (principal); J44.89 Other specified chronic obstructive pulmonary disease; I10 Essential (primary) hypertension; F17.200 Nicotine dependence, unspecified, uncomplicated; X58.XXXA Exposure to other specified factors, initial encounter; Z79.899 Other long term (current) drug therapy; Z88.1 Allergy status to other antibiotic agents; Z88.6 Allergy status to analgesic agent; Z88.5 Allergy status to narcotic agent; Z88.8 Allergy status to other drugs, medicaments and biological substances
CPT/HCPCS: 99283

== ENCOUNTER 2025-04-18 19:16 | Emergency (ER) | payer MEDICARE, OTHER ==
[~2025-04-18] VITALS: Ht 162.6 cm; Wt 113.5 kg
--- OUTSIDE RECORDS SUMMARY | ~2025-04-18 | XMS | Continuity of Care Document ---
Demographics + + + | Address | [address] | | | [place] [address] | + + + | Preferred Language | Unknown | + + + | Marital Status | | + + + | Episcopal Affiliation | Buddhist (non-Christianity, non-specific) | + + + | Race | White | + + + | Ethnic Group | Unknown | + + + Author + + + | Author | [place] | + + + | Organization | [place] | + + + | Address | [address] | | | [place] [address] | + + + | Phone | | + + + Care Team Providers + + + + | Care Supercharger Repair Supervisor Name | Role | Phone | + + + + Unavailable | Unavailable | + + + + Allergies No information. Encounters No information. Functional Status No information. Immunizations No information. Medications No information. Problems No information. Procedures No information. Results/Labs +--------+--------+ +---------+--------+---------+ | test | date | facility | value | unit | notes | +--------+--------+ +---------+--------+---------+ + + | Result panel 1 | + + + + + +-------+---------+ + | POCT | 2025-03-19 | [facility] | 141 | mg/dl | (missing) | | [facility] | 04:20 | Hospital | | | | + + + +-------+---------+ + Social History +--------+ + + | date | description | facility | +--------+ + + Vital Signs No information."
[2025-04-18] MEDS ORDERED: HYDROmorphone HCL 1 MG/ML SYR IV PRN (20:45)
[2025-04-18 21:04] LABS: BLOOD/HGB, URINE TRACE-I (Negative); KETONE, URINE NEGATIVE (Negative); LEUK ESTERASE, URINE LARGE (negative); NITRITE, URINE POSITIVE (negative)
[2025-04-18 21:10] LABS: BACTERIA, URINE 2+ /hpf (negative); CASTS, URINE NONE SEEN \\lpf; CRYSTALS, URINE NONE SEEN (0-1+); EPITHELIAL CELLS, URINE SQUAMOUS 3+ /lpf (0-1+); REFLEX CULTURE, URINE No (No)
[2025-04-18] MEDS ORDERED: HYDROCODON-ACE1 EA10 PO (22:30)
[2025-04-18] MEDS ORDERED: HYDROCODONE BIT/ACETAMINOPHEN 5/325 MG 1 TAB HOME.PACK PO PRN (22:30)
[2025-04-18] MEDS ORDERED: CEPHALEXIN MONOHYDRATE 500 MG HOME.PACK PO ONE (22:30)
[2025-04-18 23:13] VITALS: BP 140/90
== END 2025-04-18 23:18 | disposition home or self-care (01) ==
LOC: ED 19:16
PROVIDERS: Emergency Medicine
DX: M25.551 Pain in right hip (principal); G89.29 Other chronic pain; N39.0 Urinary tract infection, site not specified; M16.12 Unilateral primary osteoarthritis, left hip; I10 Essential (primary) hypertension; J44.89 Other specified chronic obstructive pulmonary disease; J45.909 Unspecified asthma, uncomplicated; F17.200 Nicotine dependence, unspecified, uncomplicated; Z88.8 Allergy status to other drugs, medicaments and biological substances; Z88.5 Allergy status to narcotic agent; Z79.899 Other long term (current) drug therapy; Z88.1 Allergy status to other antibiotic agents; Z88.6 Allergy status to analgesic agent
CPT/HCPCS: 51701; 73502; 81001; 99283-25; A9270; J0696; J1171; J2405

== ENCOUNTER 2025-04-22 14:15 | Emergency (ER) | payer MEDICARE, OTHER ==
[~2025-04-22] VITALS: Ht 162.6 cm; Wt 113.0 kg
--- OUTSIDE RECORDS SUMMARY | ~2025-04-22 | XMS | Continuity of Care Document ---
Demographics + + + | Address | [address] | | | [place] [address] | + + + | Preferred Language | Unknown | + + + | Marital Status | | + + + | Tenriism Affiliation | Holiness (non-Mormonism, non-specific) | + + + | Race | White | + + + | Ethnic Group | Unknown | + + + Author + + + | Author | [facility] | + + + | Organization | [facility] | + + + | Address | [address] | | | [place] [address] | + + + | Phone | | + + + Care Team Providers + + + + | Care Information Security Systems Instructor Name | Role | Phone | [...] +-------+---------+ + | POCT | 2025-03-19 | [facility] | 141 | mg/dl | (missing) | | GLUCOMETER | 04:20 | Hospital | | | | + + + +-------+---------+ + Social History +--------+ + + | date | description | facility | +--------+ + + Vital Signs No information."
[2025-04-22] MEDS ORDERED: MORPHINE SULFATE 4 MG/ML VIAL IV ONE (15:30)
[2025-04-22 16:10] LABS: BASOPHILS 0.3 % (0.1-1.2); EOSINOPHILS 1.0 % (0.7-5.8); LYMPHOCYTES 18.3 % (19.3-51.7); MCH 26.8 PG (25.6-32.2); MCHC 31.6 g/dL (32.2-35.5); MCV 84.9 fL (79.4-94.8); MONOCYTES 7.2 % (4.7-12.5); NEUTROPHILS 73.0 % (34.0-71.1); RBC 4.44 M/uL (3.93-5.22)
[2025-04-22 16:28] LABS: ALT (SGPT) 14.0 U/L (14-59); AST (SGOT) 7.0 U/L (15-37); GLOMERULAR FILTRATION RATE,EST 96.0 mL/min (>60); PROTEIN, TOTAL 6.8 g/dL (6.4-8.2); UREA NITROGEN 7.0 mg/dL (7-18)
[2025-04-22 19:35] VITALS: BP 127/75
== END 2025-04-22 19:35 | disposition home or self-care (01) ==
LOC: ED 14:15
PROVIDERS: Emergency Medicine
DX: S76.011A Strain of muscle, fascia and tendon of right hip, initial encounter (principal); I10 Essential (primary) hypertension; J44.9 Chronic obstructive pulmonary disease, unspecified; F17.200 Nicotine dependence, unspecified, uncomplicated; Z88.5 Allergy status to narcotic agent; Z88.8 Allergy status to other drugs, medicaments and biological substances; Z79.899 Other long term (current) drug therapy; X58.XXXA Exposure to other specified factors, initial encounter
CPT/HCPCS: 36415; 71045; 72193; 80053; 84484; 85025; 93971; 96374; 96375; 99284-25; J2270; J2405; Q9967

== ENCOUNTER 2025-05-17 09:28 | Emergency (ER) | payer MEDICARE, OTHER ==
[~2025-05-17] VITALS: Ht 162.6 cm; Wt 107.0 kg
--- OUTSIDE RECORDS SUMMARY | ~2025-05-17 | XMS | Continuity of Care Document ---
Demographics + + + | Address | [address] | | | [place] [address] | + + + | Preferred Language | Unknown | + + + | Marital Status | | + + + | Mormon Affiliation | Scientology (non-Caodaism, non-specific) | + + + | Race | White | + + + | Ethnic Group | Unknown | + + + Author + + + | Author | [facility] | + + + | Organization | [facility] | + + + | Address | [address] | | | [place] [address] | + + + | Phone | | + + + Care Team Providers + + + + | Care Night Manager Name | Role | Phone | [...] +-------+---------+ + | POCT | 2025-03-19 | [facility] | 141 | mg/dl | (missing) | | GLUCOMETER | 04:20 | Hospital | | | | + + + +-------+---------+ + Social History +--------+ + + | date | description | facility | +--------+ + + Vital Signs No information."
[2025-05-17] MEDS ORDERED: HYDROmorphone HCL 1 MG/ML SYR IV PRN ×2 (10:30→18:00)
[2025-05-17] MEDS ORDERED: SODIUM CHLORIDE 0.9% 500 ML IV ONE (10:30)
[2025-05-17] MEDS ORDERED: KETOROLAC TROMETHAMINE 15 MG/ML VIAL IV ONE (10:30)
[2025-05-17 10:55] LABS: BASOPHILS 0.4 % (0.1-1.2); EOSINOPHILS 0.3 % (0.7-5.8); LYMPHOCYTES 7.9 % (19.3-51.7); MCH 25.9 PG (25.6-32.2); MCHC 31.7 g/dL (32.2-35.5); MCV 81.8 fL (79.4-94.8); MONOCYTES 4.4 % (4.7-12.5); NEUTROPHILS 86.2 % (34.0-71.1); RBC 4.78 M/uL (3.93-5.22)
[2025-05-17] MEDS ORDERED: LIDOCAINE 2% VISCOUS 6 ML SYR TOP ONE (11:30)
[2025-05-17 11:58] LABS: ERYTHROCYTE SEDIMENTATION RATE 78
[2025-05-17 13:25] LABS: GLOMERULAR FILTRATION RATE,EST 77.0 mL/min (>60); UREA NITROGEN 6.0 mg/dL (7-18)
[2025-05-17 20:15] VITALS: BP 177/103
== END 2025-05-17 20:15 | disposition short-term general hospital (02) ==
LOC: ED 09:28
PROVIDERS: Emergency Medicine
DX: M86.8X5 Other osteomyelitis, thigh (principal); I10 Essential (primary) hypertension; J44.89 Other specified chronic obstructive pulmonary disease; F17.200 Nicotine dependence, unspecified, uncomplicated; Z88.1 Allergy status to other antibiotic agents; Z88.8 Allergy status to other drugs, medicaments and biological substances; Z88.6 Allergy status to analgesic agent; Z88.5 Allergy status to narcotic agent; Z79.899 Other long term (current) drug therapy
CPT/HCPCS: 36415; 51702; 72193; 80048; 85025; 85651; 86140; 96374; 96375; 96376; 99285-25; J1171; J1885; J7040; Q9967

== ENCOUNTER 2025-06-29 19:25 | Emergency (ER) | payer MEDICARE, OTHER ==
[~2025-06-29] VITALS: Ht 162.6 cm; Wt 103.6 kg
--- OUTSIDE RECORDS SUMMARY | ~2025-06-29 | XMS | Continuity of Care Document ---
Demographics + + + | Address | [address] [facility] [address] | | | [place] [address] | + + + | Preferred Language | Unknown | + + + | Marital Status | Unknown | + + + | Yarsani Affiliation | Unknown | + + + | Race | White | + + + | Ethnic Group | Unknown | + + + Author + + + | Author | [place] | + + + | Organization | [facility] | + + + | Address | [address] | | | [place] [address] | + + + | Phone | | + + + Care Team Providers + + + + | Care Parts Product Analyst Name | Role | Phone | + + + + Unavailable | Unavailable | + + + + Allergies No information. Encounters No information. Functional Status No information. Immunizations No information. Medications No information. Problems + + + + | date | description | facility | + + + + | 2025-06-03 15:18:54 | Broken internal right hip | [facility] | | | prosthesis, initial | | | | encounter (CMS/HCC V24) | | + + + + | 2025-06-14 12:23:15 | Presence of right | [facility] | | | artificial hip joint | | + + + + | 2025-06-14 13:28:20 | Presence of right | [facility] | | | artificial hip joint | | + + + + Procedures No information. Results/Labs No information. Social History +--------+ + + | date | description | facility | +--------+ + + Vital Signs No information."
[2025-06-29 19:55] LABS: BASOPHILS 0.7 % (0.1-1.2); EOSINOPHILS 5.2 % (0.7-5.8); LYMPHOCYTES 26.0 % (19.3-51.7); MCH 27.5 PG (25.6-32.2); MCHC 30.7 g/dL (32.2-35.5); MCV 89.4 fL (79.4-94.8); MONOCYTES 6.6 % (4.7-12.5); NEUTROPHILS 61.2 % (34.0-71.1); RBC 3.97 M/uL (3.93-5.22)
[2025-06-29 20:11] LABS: ALT (SGPT) 11.0 U/L (14-59); AST (SGOT) 14.0 U/L (15-37); GLOMERULAR FILTRATION RATE,EST 97.0 mL/min (>60); PROTEIN, TOTAL 7.3 g/dL (6.4-8.2); UREA NITROGEN 7.0 mg/dL (7-18)
[2025-06-29 20:40] LABS: BLOOD/HGB, URINE NEGATIVE (Negative); KETONE, URINE TRACE (Negative); LEUK ESTERASE, URINE NEGATIVE (negative); NITRITE, URINE NEGATIVE (negative)
[2025-06-30] MEDS ORDERED: KETOROLAC TROMETHAMINE 30 MG/ML VIAL IV ONE (00:30)
[2025-06-30] MEDS ORDERED: OXYCODONE HCL 5 MG TAB PO ONE (05:15)
[2025-06-30 07:47] VITALS: BP 157/82
== END 2025-06-30 07:47 | disposition home or self-care (01) ==
LOC: ED 19:25
PROVIDERS: Internal Medicine
DX: S29.012A Strain of muscle and tendon of back wall of thorax, initial encounter (principal); I10 Essential (primary) hypertension; J44.89 Other specified chronic obstructive pulmonary disease; F17.200 Nicotine dependence, unspecified, uncomplicated; Z88.1 Allergy status to other antibiotic agents; Z88.8 Allergy status to other drugs, medicaments and biological substances; Z88.6 Allergy status to analgesic agent; Z88.5 Allergy status to narcotic agent; Z79.899 Other long term (current) drug therapy; X58.XXXA Exposure to other specified factors, initial encounter
CPT/HCPCS: 36415; 80053; 81003; 85025; 96374; 96375; 99284-25; A9270; J1885; J2405

== ENCOUNTER 2025-08-29 22:15 | Emergency (ER) | payer MEDICARE, OTHER ==
[~2025-08-29] VITALS: Ht 162.6 cm; Wt 103.6 kg
--- OUTSIDE RECORDS SUMMARY | ~2025-08-29 | XMS | Continuity of Care Document ---
Demographics + + + | Address | [address] | | | [place] [address] | + + + | Preferred Language | Unknown | + + + | Marital Status | Unknown | + + + | Anabaptism Affiliation | Unknown | + + + | Race | White | + + + | Ethnic Group | Unknown | + + + Author + + + | Author | [place] | + + + | Organization | [place] | + + + | Address | [address] | | | [place] [address] | + + + | Phone | | + + + Care Team Providers + + + + | Care Water Use Inspector Name | Role | Phone | [...] | | + + + + | 2025-07-22 10:49:07 | Presence of right | [facility] | | | artificial hip joint | | + + + + | 2025-07-22 12:04:07 | Presence of right | [facility] | | | artificial hip joint | | + + + + | 2025-07-23 22:35:40 | Cutaneous abscess of right | [facility] | | | lower limb | | + + + + | 2025-07-23 22:35:40 | Infection and inflammatory | [facility] | | | reaction due to internal | | | | right hip prosthesis, | | | | subsequent encounter | | + + + + Procedures No information. Results/Labs No information. Social History +--------+ + + | date | description | facility | +--------+ + + Vital Signs No information."
[~2025-08-29 22:15] MED LIST changes: +AMLODIPINE BES2.5 MG PO; +DOXYCYCLINE HY100 M3 PO; +FLUCONAZOLE200 MG PO; +HYDROXYZINE HCL25 MG PO; +OXYCODONE HCL5 M3; +RIFAMPIN300 MG PO; +TRAZODONE HCL50 MG
[2025-08-30] MEDS ORDERED: HYDROCODONE/ACETA 5/325 TAB PO ONE (00:30)
[2025-08-30 00:44] LABS: BASOPHILS 0.6 % (0.1-1.2); EOSINOPHILS 1.6 % (0.7-5.8); LYMPHOCYTES 22.8 % (19.3-51.7); MCH 27.3 PG (25.6-32.2); MCHC 32.4 g/dL (32.2-35.5); MCV 84.3 fL (79.4-94.8); MONOCYTES 6.5 % (4.7-12.5); NEUTROPHILS 68.3 % (34.0-71.1); RBC 4.21 M/uL (3.93-5.22)
[2025-08-30 01:00] LABS: ALT (SGPT) 18.0 U/L (14-59); AST (SGOT) 11.0 U/L (15-37); GLOMERULAR FILTRATION RATE,EST 97.0 mL/min (>60); PROTEIN, TOTAL 6.4 g/dL (6.4-8.2); UREA NITROGEN 12.0 mg/dL (7-18)
[2025-08-30 01:44] LABS: BLOOD/HGB, URINE NEGATIVE (Negative); KETONE, URINE NEGATIVE (Negative); LEUK ESTERASE, URINE NEGATIVE (negative); NITRITE, URINE NEGATIVE (negative)
[2025-08-30] MEDS ORDERED: HYDROCODONE BIT/ACETAMINOPHEN 5/325 MG 1 TAB HOME.PACK PO ONE ×2 (03:00→06:33)
[2025-08-30 07:12] VITALS: BP 151/83
== END 2025-08-30 06:40 | disposition home or self-care (01) ==
LOC: ED 22:15
PROVIDERS: Internal Medicine
DX: M54.6 Pain in thoracic spine (principal); G89.29 Other chronic pain; I10 Essential (primary) hypertension; J45.909 Unspecified asthma, uncomplicated; F17.200 Nicotine dependence, unspecified, uncomplicated; Z88.8 Allergy status to other drugs, medicaments and biological substances; Z88.5 Allergy status to narcotic agent
CPT/HCPCS: 36415; 80053; 81003; 82550; 85025; 99284-25; A9270

== ENCOUNTER 2025-08-31 09:56 | Emergency (ER) | payer MEDICARE, OTHER ==
[~2025-08-31] VITALS: Ht 162.6 cm; Wt 90.4 kg
--- OUTSIDE RECORDS SUMMARY | ~2025-08-31 | XMS | Continuity of Care Document ---
Demographics + + + | Address | [address] [facility] [address] | | | [place] [address] | + + + | Preferred Language | Unknown | + + + | Marital Status | Unknown | + + + | Hoahaoism Affiliation | Unknown | + + + | Race | White | + + + | Ethnic Group | Unknown | + + + Author + + + | Author | [place] | + + + | Organization | [place] | + + + | Address | [address] | | | [place] [address] | + + + | Phone | | + + + Care Team Providers + + + + | Care Sheet Rock Taper Name | Role | Phone | [...]
[2025-08-31 11:57] VITALS: BP 165/85
== END 2025-08-31 12:25 | disposition home or self-care (01) ==
LOC: ED 09:56
DX: M54.50 Low back pain, unspecified (principal); G89.29 Other chronic pain; I10 Essential (primary) hypertension; J44.9 Chronic obstructive pulmonary disease, unspecified; Z88.8 Allergy status to other drugs, medicaments and biological substances; Z88.5 Allergy status to narcotic agent
CPT/HCPCS: 72131; 99284-25